=== PATIENT | female | born 1960 | race Caucasian/White ===

== ENCOUNTER → 2020-05-01 09:23 | Outpatient (BNVA) | payer MEDICARE, MEDICAID, SELFPAY | PROVIDERS: Visit Provider Internal Medicine | DX: F11.20 Opioid dependence, uncomplicated (principal) | CPT/HCPCS: 99212 ==

== ENCOUNTER → 2020-05-14 09:34 | Outpatient (BNVA) | payer MEDICARE, MEDICAID, SELFPAY | PROVIDERS: Visit Provider Internal Medicine | DX: F11.99 Opioid use, unspecified with unspecified opioid-induced disorder (principal); B37.0 Candidal stomatitis | CPT/HCPCS: 80305; 99211 ==

== ENCOUNTER → 2020-05-28 09:38 | Outpatient (BNVA) | payer MEDICARE, MEDICAID, SELFPAY | PROVIDERS: PCP Family Medicine; Visit Provider Internal Medicine | DX: F11.99 Opioid use, unspecified with unspecified opioid-induced disorder (principal) | CPT/HCPCS: 80305; 99211 ==

== ENCOUNTER → 2020-06-18 10:49 | Outpatient (BNVA) | payer MEDICARE, MEDICAID, SELFPAY | PROVIDERS: Visit Provider Internal Medicine | DX: Z76.89 Persons encountering health services in other specified circumstances (principal) ==

== ENCOUNTER → 2020-07-05 10:19 | Outpatient (BNVA) | payer MEDICARE, MEDICAID, SELFPAY | PROVIDERS: Visit Provider Internal Medicine | DX: F11.99 Opioid use, unspecified with unspecified opioid-induced disorder (principal) ==

== ENCOUNTER → 2020-07-25 10:30 | Outpatient (BNVA) | payer MEDICARE, MEDICAID, SELFPAY | PROVIDERS: Visit Provider Internal Medicine | DX: Z13.89 Encounter for screening for other disorder (principal) | CPT/HCPCS: Q3014 ==

== ENCOUNTER → 2020-08-15 11:16 | Outpatient (BNVA) | payer MEDICARE, MEDICAID, SELFPAY | PROVIDERS: Visit Provider Nurse Practitioner Psychiatric/Mental Health ==

== ENCOUNTER 2020-08-20 10:08 | Outpatient (RCR) | payer MEDICARE, MEDICAID, SELFPAY | END 2020-09-04 13:31 | disposition home or self-care (01) | LOC: HO.WCC 10:08 | PROVIDERS: Visit Provider Physician Assistant | DX: I87.322 Chronic venous hypertension (idiopathic) with inflammation of left lower extremity (principal); L97.221 Non-pressure chronic ulcer of left calf limited to breakdown of skin; I73.9 Peripheral vascular disease, unspecified; Q82.0 Hereditary lymphedema; I73.00 Raynaud's syndrome without gangrene; F11.20 Opioid dependence, uncomplicated; J44.9 Chronic obstructive pulmonary disease, unspecified; Z86.19 Personal history of other infectious and parasitic diseases; Z99.81 Dependence on supplemental oxygen; Z87.891 Personal history of nicotine dependence | CPT/HCPCS: 97597; 99202 ==

== ENCOUNTER → 2020-09-06 10:32 | Outpatient (BNVA) | payer MEDICARE, MEDICAID, SELFPAY | PROVIDERS: Visit Provider Internal Medicine | DX: F11.20 Opioid dependence, uncomplicated (principal) | CPT/HCPCS: 80305; 99212 ==

== ENCOUNTER → 2020-10-04 09:57 | Outpatient (BNVA) | payer MEDICARE, MEDICAID, SELFPAY | PROVIDERS: Visit Provider Internal Medicine | DX: F11.99 Opioid use, unspecified with unspecified opioid-induced disorder (principal); Z51.81 Encounter for therapeutic drug level monitoring; Z79.899 Other long term (current) drug therapy | CPT/HCPCS: Q3014 ==

== ENCOUNTER 2020-12-16 11:28 | Inpatient (IN) | payer MEDICARE, MEDICAID, SELFPAY ==
--- NOTE | ~2020-12-16 | US_ITS ---
EXAMINATION: US VENOUS ULTRASOUND WITH DOPPLER LOWER EXTREMITY, RIGHT CLINICAL INFORMATION: Swelling and postoperative. COMPARISON: None TECHNIQUE: Ultrasound of the deep veins is performed from the hip to the calf with compression sonography and color and pulse Doppler assessment. Spectral analysis with color-flow imaging is performed. FINDINGS: There is normal venous compression and respiratory variation and augmented flow. The visualized common femoral vein, superficial femoral vein, profunda femoral vein, popliteal vein, and the trifurcation region shows no evidence of deep venous thrombosis. There is no significant popliteal fossa cyst. Patient refused distal thigh compression. Incidentally noted are small lymph nodes in the groin region. The largest one measuring 3.01 x 0.74 x 1.50 cm. There is normal medullary architecture suggestive of benign lymph nodes. If the patient's symptoms persist, followup ultrasound in 5 days 7 days might be of value to exclude proximal propagation from a non-visualized calf vein. US/US venous duplex LE RT IMPRESSION: No DVT demonstrated in the right lower extremity.
--- NOTE | ~2020-12-16 | CT_ITS ---
EXAMINATION: CT ANGIOGRAM OF THE CHEST WITH AND WITHOUT CONTRAST (CT PULMONARY ANGIOGRAM FOR PE) CLINICAL INFORMATION: Reason for Exam Elevated D-dimer, shortness of breath, postoperative. COMPARISON: Previous chest x-ray from earlier the same day TECHNIQUE: Prior to contrast administration, noncontrast localization images were obtained. Subsequently, multidetector volumetric imaging was performed from the thoracic inlet to below the diaphragms following the administration of 75 mL Omnipaque 350 intravenous contrast. No contrast reaction reported Sagittal, coronal, and MIP oblique sagittal reformatted images were obtained on the CT workstation, uploaded to PACS, and reviewed. This CT examination was performed using dose optimization techniques as appropriate, variously including the following: *Automated exposure control *Adjustment of mA and/or kV according to patient size (this includes techniques or standardized protocols for targeted exams where dose is matched to indication/reason for exam; i.e. extremities or head) *Use of iterative reconstruction technique Total exam dose-length product 566 mGy-cm FINDINGS: QUALITY OF STUDY/CONTRAST BOLUS: Satisfactory. PULMONARY ARTERIES: No central or segmental pulmonary emboli. The pulmonary arteries appear enlarged, main pulmonary artery measuring 4 cm. THORACIC AORTA: No aneurysm or dissection. LUNG: There is a bilateral subsegmental atelectasis, greatest at the right. PLEURA: No pleural effusion or pneumothorax. MEDIASTINUM: The heart is slightly enlarged. No pericardial effusion. No hilar or mediastinal lymphadenopathy. No evidence of septal bowing or right heart strain. CHEST WALL/AXILLA: No axillary or internal mammary lymphadenopathy. OSSEOUS STRUCTURES: There are numerous healing bilateral rib fractures. There is healing sternal and manubrial fractures. There are degenerative changes of the spine. UPPER ABDOMEN: The liver may be enlarged. No reflux of contrast into the hepatic veins to suggest elevated right heart pressures. CT/CT angio chest PE protocol IMPRESSION: No evidence of pulmonary embolism. The pulmonary arteries are enlarged. There is no evidence of right heart strain. Bilateral subsegmental atelectasis, greatest at the right lung base. Innumerable healing bilateral rib fractures and healing sternal and manubrial fractures. VTE: negative
--- NOTE | ~2020-12-16 | XR_ITS ---
EXAMINATION: XR KNEE, RIGHT CLINICAL INFORMATION: Question agustín displacement COMPARISON: None TECHNIQUE: Four views of the right knee. FINDINGS: There is a partially visualized lateral compression plate with 7 screws in the distal right knee. Grossly there is no acute hardware complication. There is a partially visualized comminuted fracture of the distal right femur. There is surgical material/cement along the lateral soft tissues of the knee. The proximal tibia and fibula are intact. There is diffuse soft tissue swelling. XR/XR knee RT 3V IMPRESSION: Partially visualized comminuted fracture of the distal right femur with hardware in place. Grossly there is no acute hardware complication. Surgical material/cement along the lateral soft tissues of the knee.
--- NOTE | ~2020-12-16 | XR_ITS ---
EXAMINATION: XR CHEST CLINICAL INFORMATION: Shortness of breath COMPARISON: Previous chest x-ray most recent February 2019 TECHNIQUE: Frontal view of the chest was obtained. FINDINGS: The cardiac and mediastinal contours are stable. There is question of a fullness in the right hilar region. There is atelectasis in the right midlung and at the right lung base. The lungs are otherwise clear. There is no pleural effusion or pneumothorax. There are degenerative changes of the spine. XR/XR chest 1V IMPRESSION: Question fullness in the right hilar region and atelectasis in the right midlung and right lung base.
[2020-12-16 11:34] VITALS: BP 148/65; PULSE 71; RESP 18; TEMP 36.7; BMI 49.9
--- NOTE | 2020-12-16 11:46 | ECG_ITS ---
Test Reason : LEG PAIN Blood Pressure : / mmHG Vent. Rate : 064 BPM Atrial Rate : 064 BPM P-R Int : 136 ms QRS Dur : 090 ms QT Int : 418 ms P-R-T Axes : 049 028 040 degrees QTc Int : 431 ms Normal sinus rhythm Possible Left atrial enlargement Borderline ECG When compared with ECG of 21-MAR-2019 10:13, No significant changes seen Referred By: Morena Mehta Electronically Signed By:STEPHANY STOUT
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
[2020-12-16 12:07] LABS: MANUAL DIFF FLAG NO
[2020-12-16 12:09] LABS: Basophils Percent Auto 0.4 % (0-2); Eosinophils Absolute Auto 0.4 X10*3/uL (0.0-0.4); Eosinophils Percent Auto 4.2 % (0-4); Hematocrit 35.9 % (37-47); Hemoglobin 10.6 g/dl (12.0-16.0); Imm Gran Abs Auto 0.02 X10*3/uL (0.00-0.03); Imm Gran Pct Auto 0.2 % (0.0-0.4); Lymphocytes Absolute Auto 1.2 X10*3/uL (1.2-4.9); Mean Corpuscular HGB Conc 29.5 g/dl (31.0-35.0); Mean Corpuscular Hemoglobin 28.1 pg (27.0-33.0); Mean Corpuscular Volume 95.2 fL (80-98); Mean Platelet Volume 10.4 fL (9.4-12.3); Monocytes Absolute Auto 0.6 X10*3/uL (0.1-1.2); Neutrophils Absolute Auto 6.2 X10*3/uL (2.0-8.3); Neutrophils Percent Auto 74.2 % (45-73); Platelet Count 205 X10*3/uL (160-400); Red Blood Count 3.77 X10*6/uL (4.20-5.50); Red Cell Distribution Width 13.2 % (11.0-16.0); White Blood Count 8.3 X10*3/uL (4.8-10.8)
[2020-12-16 12:14] LABS: INTERNATIONAL NORM RATIO 1.1 (0.9-1.1); Prothrombin Time 13.6 SEC (10.8-13.0)
[2020-12-16 12:18] LABS: D Dimer 437 NG/ML
[2020-12-16] MEDS: 0.9 % Sodium Chloride 1,000 ML 999 ML IVCONT (12:19)
[2020-12-16] MEDS: Buprenorphine/Naloxone 4/1 mg FILM 1 FILM SUBLINGUAL (12:21)
[2020-12-16 12:29] LABS: Partial Thromboplastin Time 51.6 SEC (24.1-38.0)
[2020-12-16 12:49] LABS: Alanine Aminotransferase 12 U/L (0-31); Albumin Level 3.5 g/dL (3.5-5.0); Alkaline Phosphatase 147 U/L (39-117); Aspartate Amino Transferase 12 U/L (5-31); Bilirubin Direct < 0.2 mg/dL (0.0-0.5); Bilirubin Total < 0.2 mg/dL (0.0-1.0); Blood Urea Nitrogen 27 mg/dL (9-16); Calcium 9.5 mg/dL (8.4-10.2); Creatinine Clr Calc Pharmacy 115.3; Estimated Glomerular Filt Rate > 60; Glucose Random 138 mg/dL (60-115); Lipase 22 U/L (8-78); Total Protein 6.2 g/dL (6.5-8.0)
[2020-12-16 12:54] LABS: B Type Natriuretic Peptide 27 pg/mL (<100); Troponin-I High Sensitivity 4.8 ng/L (<3.5-17.0)
[2020-12-16 13:05] LABS: Anion Gap 13 (12-20); Carbon Dioxide 49 mmol/L (22-29); Chloride 87 mmol/L (96-108); Potassium 3.4 mmol/L (3.3-5.1); Sodium 146 mmol/L (135-145)
--- NOTE | 2020-12-16 13:26 | PC.NURSE ---
family reporting depression and significant life stressors. care team at bedside
--- NOTE | 2020-12-16 13:41 | MHC.CARE ---
CARE Team met with Pt to provide support. Pt reported multiple recent life stressors; medical and personal loss.Pt reports a very support family. Pt reports she is on anxiety medications prescribed by her room service waiter. Pt reports she is interested in speaking with a thearpist for additional support. Pt reports a history of family therapy through [facility]. CARE Team spoke with Case Management regarding concerns Pt as with current rehab placement. CARE Team to follow up [facility] regarding referral for therapy.
[2020-12-16 14:00] VITALS: RESP 16; O2SAT 100
--- NOTE | 2020-12-16 14:52 | PC.NURSE ---
purewick placed after discussing with pt that we do not have briefs. pt tolerated well
[2020-12-16] MEDS: iohexoL 350 MG/ML 100 ML INFUS..BTL IV (16:19)
[2020-12-16 16:38] VITALS: O2SAT 99
[2020-12-16 16:51] LABS: ABG Refer to POC result
[2020-12-16 16:52] LABS: ABG Base Excess 33.9 mmol/L; ABG HCO3 65 mmol/L (22-26); ABG pCO2 100 mmHg (32-45); ABG pCO2 TC 98 mmHg (32-45); ABG pH 7.42 (7.35-7.45); ABG pH TC 7.43 (7.35-7.45); ABG pO2 73 mmHg (83-108)
[2020-12-16] MEDS: Acetaminophen 325 MG TABLET 650 MG PO (18:29)
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
--- NOTE | 2020-12-16 19:06 | MHC.CM.ED ---
Pt will be admitted [place] [facility]. CPAP and med adjustments. Pt and partner very happy to be admitted. Hoa Blackburn (RN at [facility] is very unhappy with the care the patient received at [facility] and doesn't want her to return there.If she needs continued STR, would like pt closer to her. CM will continue to follow for d/c needs.
[2020-12-16 19:28] VITALS: BP 119/47; PULSE 75; RESP 22; TEMP 36.7; O2SAT 93
[2020-12-16] MEDS: Furosemide 40 MG/4 ML VIAL IVPUSH (19:33)
--- NOTE | 2020-12-16 19:53 | PC.NURSE ---
Pt aaox4, resting on stretcher in NAD, breathing with ease on NC. pt endorses pain to R knee, denies other complaints/concerns at this time. Pt agreeable to plan for admission. Pt NSR on secured entrance monitor, vss. Pt medicated with IV lasix, has purewick connected to suction. Pt stretcher in low locked position, rails raised, call chavez within reach.
[2020-12-16 20:02] LABS: COVID-19 Test Negative (Negative)
--- NOTE | 2020-12-16 20:42 | PC.NURSE ---
This RN called Respiratory to notify of need for bipap and repeat abg after 2 hourss of bipap. PILI Ramirez and nelson Jimenez to bedside placing doan catheter.
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
[2020-12-16 22:07] LABS: Glucose Urine UA NEG (NEG); Leukocyte Esterase Urine 1+ (NEG); Nitrite Urine NEG (NEG); UACC Culture Trigger YES; Urine Blood TRACE (NEG); Urine Ketones NEG (NEG); Urine Protein NEG (NEG-TRACE)
[2020-12-16 22:11] LABS: Appearance Urine HAZY; Color Urine YELLOW
[2020-12-16 22:17] LABS: Bacteria Urine 1+ /LPF; Hyaline Casts Urine 0-2 /LPF; Mucus Urine 1+ /LPF; RBC Urine 0 /HPF (0); Squamous Epithelial Cell Urine 2+ /LPF; WBC Clumps Urine NOTED
[2020-12-16 23:01] VITALS: BP 131/57; PULSE 65; RESP 12; O2SAT 96
[2020-12-16] MEDS: Ergocalciferol (Vitamin D2) 1,250 MCG CAPSULE 1250 MCG PO (23:06)
[2020-12-16] MEDS: Enoxaparin Sodium 80 MG/0.8 ML SYRINGE 65 MG SUBCUT (23:06)
[2020-12-16] MEDS: methylPREDNISolone Sod Succ 40 MG/ML VIAL IVPUSH (23:07)
--- NOTE | 2020-12-16 23:22 | PC.NURSE ---
pt requesting her dose of klonopin, this rn requested a one time dose as pt missed her 7pm dose. per provider, pt not to receive dose tonight d/t elevated CO2 levels. THis RN to notify pt.
--- NOTE | 2020-12-16 23:34 | PC.NURSE ---
Per provider, ok to give klonopin despite prior instruction to skip today's dose.
[2020-12-16 23:55] VITALS: BP 131/58; PULSE 63; RESP 19; O2SAT 95
[2020-12-16] MEDS: clonazePAM 0.5 MG TABLET PO (23:57)
[2020-12-17] VITALS (9 sets, daily range): BP systolic 126–163; BP diastolic 56–67; PULSE 59–67; RESP 17–20; TEMP 35.9–36.9; O2SAT 90–98; BMI 48.7
[2020-12-17 00:31] LABS: ABG Base Excess 35.2 mmol/L; ABG HCO3 66 mmol/L (22-26); ABG pCO2 99 mmHg (32-45); ABG pCO2 TC 98 mmHg (32-45); ABG pH 7.43 (7.35-7.45); ABG pH TC 7.43 (7.35-7.45); ABG pO2 69 mmHg (83-108)
[2020-12-17 00:31] LABS: ABG Refer to POC result
[2020-12-17] MEDS: methylPREDNISolone Sod Succ 40 MG/ML VIAL IVPUSH (05:42)
[2020-12-17 06:32] LABS: MANUAL DIFF FLAG NO
[2020-12-17 06:42] LABS: INTERNATIONAL NORM RATIO 1.1 (0.9-1.1); Prothrombin Time 12.9 SEC (10.8-13.0)
[2020-12-17 06:50] LABS: Basophils Percent Auto 0.4 % (0-2); Eosinophils Absolute Auto 0.1 X10*3/uL (0.0-0.4); Eosinophils Percent Auto 0.8 % (0-4); Hematocrit 34.6 % (37-47); Hemoglobin 10.5 g/dl (12.0-16.0); Imm Gran Abs Auto 0.01 X10*3/uL (0.00-0.03); Imm Gran Pct Auto 0.1 % (0.0-0.4); Lymphocytes Absolute Auto 0.7 X10*3/uL (1.2-4.9); Lymphocytes Percent Auto 9.4 % (20-40); Mean Corpuscular HGB Conc 30.3 g/dl (31.0-35.0); Mean Corpuscular Hemoglobin 28.5 pg (27.0-33.0); Mean Corpuscular Volume 93.8 fL (80-98); Mean Platelet Volume 11.3 fL (9.4-12.3); Monocytes Absolute Auto 0.1 X10*3/uL (0.1-1.2); Monocytes Percent Auto 1.2 % (2-11); Neutrophils Absolute Auto 6.6 X10*3/uL (2.0-8.3); Neutrophils Percent Auto 88.1 % (45-73); Platelet Count 214 X10*3/uL (160-400); Red Blood Count 3.69 X10*6/uL (4.20-5.50); White Blood Count 7.5 X10*3/uL (4.8-10.8)
[2020-12-17 07:20] LABS: Anion Gap 14 (12-20); Blood Urea Nitrogen 22 mg/dL (9-16); Calcium 9.4 mg/dL (8.4-10.2); Carbon Dioxide 47 mmol/L (22-29); Chloride 87 mmol/L (96-108); Creatinine Clr Calc Pharmacy 119.1; Estimated Glomerular Filt Rate > 60; Glucose Random 194 mg/dL (60-115); Magnesium 1.8 mg/dL (1.6-2.6); Potassium 3.6 mmol/L (3.3-5.1); Sodium 144 mmol/L (135-145)
[2020-12-17] MEDS: Thiamine HCL 100 MG TABLET PO (08:31)
[2020-12-17] MEDS: Furosemide 40 MG TABLET PO (08:31)
[2020-12-17] MEDS: dilTIAZem HCL CD 180 MG CAP.ER.24H PO (08:31)
[2020-12-17] MEDS: Gabapentin 300 MG CAPSULE PO ×3 (08:31→21:44)
[2020-12-17] MEDS: Theophylline Anhydrous ER 400 MG TAB.ER.24H PO (08:31)
[2020-12-17] MEDS: Aspirin Enteric Coated 81 MG TABLET.DR PO (08:31)
[2020-12-17] MEDS: Enoxaparin Sodium 80 MG/0.8 ML SYRINGE 65 MG SUBCUT ×2 (08:32→21:45)
[2020-12-17] MEDS: 0.9 % Sodium Chloride Flush 3 ML SYRINGE IVFLUSH ×3 (08:35→21:45)
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
--- NOTE | 2020-12-17 08:59 | MHC.CM.PN ---
CM met with Patient briefly (Nursing Care being provided) and spoke with S.O of 30 years/HCP/Nurse @ [facility] @ [phone]. Patient was admitted from [facility] at [facility] and she will not be returning there. With permission, CM has made referrals to other area SNFs and have initiated and will follow for dc planning. Fellow CM provided IMM yeterday and this worker again today (not realizing that CM admission had already been completed). Patient uses O[facility] at home ([facility])and her PCP is Dr. Evin Fan. Patient has a script she fills at [facility], from Dr. Houston for her Suboxone and Patient has a wound vac on her (L) LE.
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
[2020-12-17] MEDS: Acetaminophen 325 MG TABLET 650 MG PO (11:54)
[2020-12-17] MEDS: acetaZOLAMIDE 250 MG TABLET PO (13:09)
[2020-12-17] MEDS: clonazePAM 0.5 MG TABLET PO (15:10)
[2020-12-17] MEDS: Buprenorphine/Naloxone 4/1 mg FILM 1 FILM SUBLINGUAL ×2 (15:41→21:44)
[2020-12-17] MEDS: Warfarin Sodium 7.5 MG TABLET PO (17:48)
--- NOTE | 2020-12-17 20:04 | PC.NURSE ---
Pt AOx4 , mostly pleasant, can be anxious at times. Was upset today about med regimen. INSURANCE COMMISSIONER and RN explained med regimen and following her pharmacy med rec. PT was upset about orders but did recieve her daily klonipon which had good effect on anxiety levels. PT was also questioning her suboxone dose, said they had been weaning it lately- has conslt sammie - Promise Sherman INSURANCE COMMISSIONER to see tomorrow. Pt had some pain in R knee- tylenol and ice packs did help per pt reassessment. Pt was requesting her wound vac to be changed stating pain was unbearable to last through the night until wound to see tomorrow. INSURANCE COMMISSIONER came to room removed wound vac. RN replaced with wet to dry dressing. Wound vac machine remained in room at bedside as not from [facility] Wound consult is in place. Pt voided ~2L urine from 7a-7p. States breathing is better as well as her lower extrem edema, is receiving IV lasix at this time. Pt 1-2asst OOB to chair, non wt bearing on right due to recent fracture. Did well with a stand/pivot/shuffle to the recliner from bed. High fall risk measures remain in place at this time. Pt uses call chavez appropriately.
[2020-12-18] VITALS (7 sets, daily range): BP systolic 104–137; BP diastolic 51–90; PULSE 53–65; RESP 18–19; TEMP 36.4–37.1; O2SAT 93–98
[2020-12-18] MEDS: clonazePAM 0.5 MG TABLET PO ×2 (01:19→10:57)
[2020-12-18] MEDS: Omeprazole 20 MG CAPSULE.DR PO (05:40)
[2020-12-18 06:28] LABS: Hematocrit 31.6 % (37-47); Hemoglobin 9.4 g/dl (12.0-16.0); Mean Corpuscular HGB Conc 29.7 g/dl (31.0-35.0); Mean Corpuscular Hemoglobin 27.7 pg (27.0-33.0); Mean Corpuscular Volume 93.2 fL (80-98); Mean Platelet Volume 11.2 fL (9.4-12.3); Platelet Count 200 X10*3/uL (160-400); Red Blood Count 3.39 X10*6/uL (4.20-5.50); Red Cell Distribution Width 13.2 % (11.0-16.0); White Blood Count 7.4 X10*3/uL (4.8-10.8)
[2020-12-18 06:49] LABS: B Type Natriuretic Peptide 83 pg/mL (<100)
[2020-12-18 07:14] LABS: Theophylline 6.1
[2020-12-18 07:16] LABS: Anion Gap 11 (12-20); Blood Urea Nitrogen 22 mg/dL (9-16); Calcium 8.8 mg/dL (8.4-10.2); Carbon Dioxide 47 mmol/L (22-29); Chloride 90 mmol/L (96-108); Creatinine Clr Calc Pharmacy 115.3; Estimated Glomerular Filt Rate > 60; Glucose Random 129 mg/dL (60-115); Potassium 3.1 mmol/L (3.3-5.1); Sodium 145 mmol/L (135-145)
[2020-12-18] MEDS: Furosemide 40 MG/4 ML VIAL IVPUSH (07:49)
[2020-12-18] MEDS: 0.9 % Sodium Chloride Flush 3 ML SYRINGE IVFLUSH ×3 (07:50→20:51)
[2020-12-18] MEDS: acetaZOLAMIDE 250 MG TABLET PO (07:50)
[2020-12-18] MEDS: Thiamine HCL 100 MG TABLET PO (07:51)
[2020-12-18] MEDS: Gabapentin 300 MG CAPSULE PO ×3 (07:52→20:47)
[2020-12-18] MEDS: predniSONE 20 MG TABLET 40 MG PO (07:53)
[2020-12-18] MEDS: dilTIAZem HCL CD 180 MG CAP.ER.24H PO (07:53)
[2020-12-18] MEDS: Theophylline Anhydrous ER 400 MG TAB.ER.24H PO (07:53)
[2020-12-18] MEDS: Buprenorphine/Naloxone 4/1 mg FILM 1 FILM SUBLINGUAL ×3 (07:54→20:47)
[2020-12-18] MEDS: Aspirin Enteric Coated 81 MG TABLET.DR PO (08:07)
[2020-12-18 08:23] LABS: Prothrombin Time 12.4 SEC (10.8-13.0)
[2020-12-18] MEDS: Potassium Chloride ER 20 MEQ TAB.ER.PRT 40 MEQ PO (08:33)
[2020-12-18] MEDS: Enoxaparin Sodium 80 MG/0.8 ML SYRINGE 65 MG SUBCUT ×2 (08:33→20:47)
--- NOTE | 2020-12-18 08:38 | MHC.CM.PN ---
Female 60 DX CHF. Patient had been receiving STR @ [facility]. She is admitted @ [facility] for HF. The Patient requests that she not return to the Facility. Referrals have been sent out to local facilities for STR. CM will follow.
--- NOTE | 2020-12-18 09:22 | P.PNPL_ITS ---
Subjective Subjective Date of Service: 12/18/20 Interval history: The patient was seen on exam. She did tolerate the higher BiPAP 12/03. She did require small dose of benzodiazepines that she usually uses at home. She did receive a dose of Diamox yesterday. Her bicarb still a very elevated. I will give her additional IV Diamox does now in the patient should continue Diamox to her bicarb is below 40. Objective Data Labs CBC & Chem 7: 12/18/20 05:36 12/18/20 05:36 Labs: Laboratory Results - last 24 hr 12/17/20 12/18/20 12/18/20 09:11 05:36 05:36 WBC 7.4 RBC 3.39 L Hgb 9.4 L Hct 31.6 L MCV 93.2 MCH 27.7 MCHC 29.7 L RDW 13.2 Plt Count 200 MPV 11.2 Absolute Nucleated RBC 0.000 Nucleated RBC % (auto) 0.0 PT INR Sodium 145 Potassium 3.1 L Chloride 90 L Carbon Dioxide 47 H* Anion Gap 11 L BUN 22 H Creatinine 0.65 Estim Creat Clear Calc 115.3 Estimated GFR > 60 Random Glucose 129 H Calcium 8.8 D B-Natriuretic Peptide Theophylline 6.1 12/18/20 12/18/20 05:36 07:43 WBC RBC Hgb Hct MCV MCH MCHC RDW Plt Count MPV Absolute Nucleated RBC Nucleated RBC % (auto) PT 12.4 INR 1.0 Sodium Potassium Chloride Carbon Dioxide Anion Gap BUN Creatinine Estim Creat Clear Calc Estimated GFR Random Glucose Calcium B-Natriuretic Peptide 83 Theophylline Microbiology Microbiology Results: Microbiology 12/16/20 21:52 Urine clean catch - Clean Catch Midstream Urine Culture - Final No growth. Review of Systems Review of Systems Yes all other systems are reviewed and are negative Cardiovascular: Reports as per HPI, Reports no additional cardiovascular co mplaints, Denies acrocyanosis, Denies cool extremities, Denies painful fingertips, Denies chest pain, Denies chest pain at rest, Denies diaphoresis, Denies syncope, Denies irregular heart rhythm, Denies claudication, Reports leg edema, Denies lightheadedness, Denies palpitations and Reports dyspnea Respiratory: Reports dyspnea Denies syncope Endocrine: Denies palpitations Physical Exam Vital Signs: Vital Signs: Last Vital Signs Temp 98.0 F 12/18/20 07:31 Pulse 60 12/18/20 07:53 Resp 19 12/18/20 07:31 BP 112/54 L 12/18/20 07:53 Pulse Ox 97 12/18/20 07:31 Oxygen Flow Rate 4 12/16/20 11:34 Body Mass Index 48.7 Const: General: alert Neck: Neck: Yes normal visual inspection, Yes full ROM and Yes no lymphadenopathy Chest: Chest palpation & inspection: normal inspection of the chest Resp: Auscultation: crackles bilateral at the base and diminished lung sounds Cardio: Rate: regular rate Rhythm: regular rhythm Heart sounds: S1 normal heart sound present and S2 normal heart sound present GI: Palpation (GI): Soft to palpation and nontender Auscultation: normal bowel sounds : General: No no CVA tenderness Back/Spine/Pelvis: Back: No no CVA tenderness Skin: General skin exam: rashes and/or lesions noted Extrem: General: No cyanosis and Yes edema Procedures Date of Service Date of Service: 12/18/20 Assessment and Plan Assessment and plan (1) ALEKSEY treated with BiPAP: Status: Acute (2) Hypoventilation associated with obesity: Status: Acute (3) Pickwickian syndrome: Status: Acute (4) Chronic hypercapnic respiratory failure: Status: Acute Assessment and Plan: Continue BiPAP 18/8 Additional Diamox today IV, she stay on Diamox until part copies below 40 Continue diuresis as tolerated Time Spent With Patient Time: Total time spent is greater than 50% in coordination of care (as documented) at patient's floor/unit and/or counseling patient: Time with patient: 15 - 24 minutes
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
[2020-12-18] MEDS: acetaZOLAMIDE sodium 500 MG VIAL 250 MG IVPUSH (10:57)
--- NOTE | 2020-12-18 12:28 | PM.PNCARD ---
Subjective Subjective Date of Service: 12/18/20 Interval history: She states that she is feeling better. No new complaints. Review of Systems Review of Systems Yes all other systems are reviewed and are negative Cardiovascular: Reports as per HPI, Reports no additional cardiovascular complaints, Denies acrocyanosis, Denies cool extremities, Denies painful fingertips, Denies chest pain, Denies chest pain at rest, Denies diaphoresis, Denies syncope, Denies irregular heart rhythm, Denies claudication, Reports leg edema, Denies lightheadedness, Denies palpitations and Reports dyspnea Respiratory: Reports dyspnea Denies syncope Endocrine: Denies palpitations Physical Exam Vital Signs: Last Vital Signs Temp 97.8 F 12/18/20 11:26 Pulse 64 12/18/20 11:26 Resp 18 12/18/20 11:26 BP 132/90 H 12/18/20 11:26 Pulse Ox 94 12/18/20 11:26 Oxygen Flow Rate 4 12/16/20 11:34 Body Mass Index 48.7 Const General: cooperative, comfortable and no acute distress Orientation/consciousness: patient oriented x3 HENMO Other: Unremarkable Neck Neck: Yes normal visual inspection Chest Chest palpation & inspection: normal inspection of the chest Resp Auscultation: no crackles, wheezes (Mild) and diminished lung sounds Cardio Jugular venous distension: no JVD Palpation: normal PMI Heart sounds: S1 normal heart sound present, S2 normal heart sound present, no gallops, no murmurs and no rubs GI Palpation (GI): Soft to palpation Back/Spine/Pelvis Other: unremarkable Skin General skin exam: no rashes or lesions noted Neuro General: patient oriented x3 Extrem General: Yes pedal edema (Bilateral 3+ with chronic changes) Psych Mental Status: mental status grossly normal Results Labs and Meds Result diagrams: 12/18/20 05:36 12/18/20 05:36 Lab results: Laboratory Results - last 24 hr 12/17/20 12/18/20 12/18/20 09:11 05:36 05:36 WBC 7.4 RBC 3.39 L Hgb 9.4 L Hct 31.6 L MCV 93.2 MCH 27.7 MCHC 29.7 L RDW 13.2 Plt Count 200 MPV 11.2 Absolute Nucleated RBC 0.000 Nucleated RBC % (auto) 0.0 PT INR Sodium 145 Potassium 3.1 L Chloride 90 L Carbon Dioxide 47 H* Anion Gap 11 L BUN 22 H Creatinine 0.65 Estim Creat Clear Calc 115.3 Estimated GFR > 60 Random Glucose 129 H Calcium 8.8 D B-Natriuretic Peptide Theophylline 6.1 12/18/20 12/18/20 05:36 07:43 WBC RBC Hgb Hct MCV MCH MCHC RDW Plt Count MPV Absolute Nucleated RBC Nucleated RBC % (auto) PT 12.4 INR 1.0 Sodium Potassium Chloride Carbon Dioxide Anion Gap BUN Creatinine Estim Creat Clear Calc Estimated GFR Random Glucose Calcium B-Natriuretic Peptide 83 Theophylline Progress Note: A&P Assessment and plan (1) Acute on chronic right heart failure: Status: Acute (2) Paroxysmal atrial fibrillation: Status: Acute (3) Nonrheumatic mitral (valve) stenosis: Status: Acute (4) ALEKSEY treated with BiPAP: Status: Acute (5) Hypoventilation associated with obesity: Status: Acute Assessment and Plan: ABG shows significant CO2 retention. Her creatinine is 0.63. High sensitivity troponin 4.8. Cardiac BNP is 27. Overall, symptoms possibly from acute on chronic right heart failure related to obesity and obstructive sleep apnea. With regard to atrial fibrillation, no evidence of the same on telemetry. Echocardiogram was recently done at [facility] which I reviewed. LVEF was 60-65%. There was mild to moderate mitral stenosis due to mitral annular calcification. Otherwise no significant valvular pathology. RVSP could not be assessed. Normal IVC size and respiratory collapse. Overall, empiric diuretics is reasonable. In the last 24 hours, she has diuresed almost 3.8 L and negative -2960 mL. She states she is feeling much improved clinically. Discharge planning. Follow-up with her own car hop, Dr. Salcedo. Fall Risk Details Current Medications: Current Medications Generic Name Dose Route Start Last Admin Trade Name Freq PRN Reason Stop Dose Admin Acetaminophen 650 mg 12/16/20 21:44 12/17/20 11:54 Acetaminophen 325 Mg Tablet PO 650 mg Q6H PRN Administration Pain, Mild (Pain Scale 1-3) Acetazolamide 250 mg 12/17/20 12:00 12/18/20 07:50 Acetazolamide 250 Mg Tablet PO 250 mg DAILY BEN Administration Albuterol/Ipratropium 3 ml 12/17/20 08:00 12/18/20 11:10 Albuterol/Iprat 2.5/0.5mg 3 Ml Ampul.Neb INHALE Not Given RQ4H WHILE AWAKE [facility] Aspirin 81 mg 12/17/20 09:00 12/18/20 08:07 Aspirin Enteric Coated 81 Mg Tablet. PO 81 mg DAILY BEN Administration Buprenorphine/Naloxone 1 film 12/17/20 15:00 12/18/20 07:54 Buprenorphine/Naloxone 4/1 Mg Film SUBLINGUAL 1 film TID BEN Administration Clonazepam 0.5 mg 12/17/20 15:05 12/18/20 10:57 Clonazepam 0.5 Mg Tablet PO 0.5 mg DAILY PRN Administration anxiety Diltiazem HCl 180 mg 12/17/20 09:00 12/18/20 07:53 Diltiazem Hcl Cd 180 Mg Cap.Er.24h PO 180 mg DAILY [facility] Administration Protocol Enoxaparin Sodium 65 mg 12/16/20 22:00 12/18/20 08:33 Enoxaparin Sodium 80 Mg/0.8 Ml Syringe SUBCUT 65 mg Q12H BEN Administration Ergocalciferol 1,250 mcg 12/16/20 21:58 12/16/20 23:06 Ergocalciferol (Vitamin D2) 1,250 Mcg Capsule PO 1,250 mcg MO [facility] Administration Furosemide 40 mg 12/17/20 09:00 12/18/20 07:49 Furosemide 40 Mg/4 Ml Vial IVPUSH 40 mg DAILY [facility] Administration Protocol Gabapentin 300 mg 12/17/20 09:00 12/18/20 07:52 Gabapentin 300 Mg Capsule PO 300 mg TID BEN Administration Omeprazole 20 mg 12/18/20 06:30 12/18/20 05:40 Omeprazole 20 Mg Capsule. PO 20 mg DAILY@0630 [facility] Administration Pharmacy Consult 1 each 12/16/20 18:36 Consult Rx Perform Med Rec MISCELLANE ONCE PRN Consult order Prednisone 40 mg 12/18/20 09:00 12/18/20 07:53 Prednisone 20 Mg Tablet PO 40 mg DAILY [facility] Administration Sodium Chloride 3 ml 12/17/20 00:00 12/18/20 07:50 0.9 % Sodium Chloride Flush 3 Ml Syringe IVFLUSH 3 ml QSHIFT [facility] Administration Theophylline 400 mg 12/17/20 09:00 12/18/20 07:53 Theophylline Anhydrous Er 400 Mg Tab.Er.24h PO 400 mg DAILY [facility] Administration Thiamine HCl 100 mg 12/17/20 09:00 12/18/20 07:51 Thiamine Hcl 100 Mg Tablet PO 100 mg DAILY BEN Administration Warfarin Sodium 7.5 mg 12/17/20 18:00 12/17/20 17:48 Warfarin Sodium 7.5 Mg Tablet PO 7.5 mg DAILY@1800 BEN Administration Time Spent With Patient Time: Total time spent is greater than 50% in coordination of care (as documented) at patient's floor/unit and/or counseling patient: Time with patient: less than 15 minutes Procedures Date of Service Date of Service: 12/18/20
--- NOTE | 2020-12-18 15:51 | HO.ADDICT_ITS ---
History of Present Illness Date of Service: 12/18/2020 Chief Complaint: CHF Reason for Consult: ? reduction in suboxone dose Requesting physician: Meagan Farrar Discussed with referring provider: Yes Sources of Information: patient interviewed and chart reviewed HPI Narrative: Patient is a 60 year old female with multiple chronic medical issues, including OUD. She has been being managed outpatient by Dr. Houston at the [facility]. Consult requested as patient verbalized to provider desire to possibly reduce dose of suboxone. Patient seen in room 479. Awake, alert , pleasant and engaged in interview. Reporting that there was a misunderstanding regarding request for consult. She bruce snot wish to change the dose of her medication. She is concerned regarding an upcoming procedure and how to manage her suboxone prior to that. She denies any issues with current suboxone dosing and feels medication has been extremely helpful to her. Medical Evaluation Reviewed: Yes Review of Systems Constitutional: Reports as per HPI Diagnostics Vital Signs (24Hr): Vital Signs - 24 hr 12/17/20 19:45 12/17/20 23:57 12/18/20 03:38 Temperature 96.7 F L 97.0 F 98.1 F Pulse Rate 67 61 53 Respiratory Rate 18 18 18 Blood Pressure 137/64 126/56 L 114/60 Pulse Oximetry 95 98 98 12/18/20 07:31 12/18/20 07:53 12/18/20 11:26 Temperature 98.0 F 97.8 F Pulse Rate 60 60 64 Respiratory Rate 19 18 Blood Pressure 112/54 L 112/54 L 132/90 H Pulse Oximetry 97 94 12/18/20 15:23 Temperature 98.7 F Pulse Rate 65 Respiratory Rate 18 Blood Pressure 104/51 L Pulse Oximetry 94 Body Mass Index 48.7 Labs Results: 12/18/20 05:36 12/18/20 05:36 Labs: Laboratory Results - last 48 hr 12/16/20 12/16/20 12/16/20 16:43 19:39 21:52 WBC RBC Hgb Hct MCV MCH MCHC RDW Plt Count MPV Immature Gran % (Auto) Neut % (Auto) Lymph % (Auto) [place] % (Auto) Eos % (Auto) Baso % (Auto) Lymph # (Auto) [place] # (Auto) Eos # (Auto) Baso # (Auto) Abs Immat Gran (auto) Absolute Neuts (auto) Absolute Nucleated RBC Nucleated RBC % (auto) PT INR O2 Saturation 92.0 ABG pH at Pt Temp 7.42 ABG pH (Temp Correct) 7.43 ABG pCO2 at Pt Temp 100 H* ABG pCO2 (Temp Corrct 98 H* ABG pO2 at Pt Temp 73 L ABG HCO3 65 H ABG Base Excess (Actual) 33.9 Sodium Potassium Chloride Carbon Dioxide Anion Gap BUN Creatinine Estim Creat Clear Calc Estimated GFR Random Glucose Calcium Magnesium B-Natriuretic Peptide Urine Color YELLOW Urine Appearance HAZY Urine pH 6.0 Ur Specific [place] 1.010 Urine Protein NEG Urine Glucose (UA) NEG Urine Ketones NEG Urine Blood TRACE Urine Nitrite NEG Ur Leukocyte Esterase 1+ H Urine RBC 0 Urine WBC 76-150 H Urine WBC Clumps NOTED Ur Squamous Epith Cells 2+ Urine Bacteria 1+ Hyaline Casts 0-2 Urine Mucus 1+ Theophylline COVID-19 ([facility]) Negative COVID-19 Clin Com See Note 12/17/20 12/17/20 12/17/20 00:19 05:39 05:39 WBC 7.5 RBC 3.69 L Hgb 10.5 L Hct 34.6 L MCV 93.8 MCH 28.5 MCHC 30.3 L RDW 13.0 Plt Count 214 MPV 11.3 Immature Gran % (Auto) 0.1 Neut % (Auto) 88.1 H Lymph % (Auto) 9.4 L [place] % (Auto) 1.2 L Eos % (Auto) 0.8 Baso % (Auto) 0.4 Lymph # (Auto) 0.7 L [place] # (Auto) 0.1 Eos # (Auto) 0.1 Baso # (Auto) 0.0 Abs Immat Gran (auto) 0.01 Absolute Neuts (auto) 6.6 Absolute Nucleated RBC 0.000 Nucleated RBC % (auto) 0.0 PT 12.9 INR 1.1 O2 Saturation 91.0 ABG pH at Pt Temp 7.43 ABG pH (Temp Correct) 7.43 ABG pCO2 at Pt Temp 99 H* ABG pCO2 (Temp Corrct 98 H* ABG pO2 at Pt Temp 69 L ABG HCO3 66 H ABG Base Excess (Actual) 35.2 Sodium Potassium Chloride Carbon Dioxide Anion Gap BUN Creatinine Estim Creat Clear Calc Estimated GFR Random Glucose Calcium Magnesium B-Natriuretic Peptide Urine Color Urine Appearance Urine pH Ur Specific [place] Urine Protein Urine Glucose (UA) Urine Ketones Urine Blood Urine Nitrite Ur Leukocyte Esterase Urine RBC Urine WBC Urine WBC Clumps Ur Squamous Epith Cells Urine Bacteria Hyaline Casts Urine Mucus Theophylline COVID-19 ([facility]) COVID-19 [employer] 12/17/20 12/17/20 12/18/20 05:39 09:11 05:36 WBC 7.4 RBC 3.39 L Hgb 9.4 L Hct 31.6 L MCV 93.2 MCH 27.7 MCHC 29.7 L RDW 13.2 Plt Count 200 MPV 11.2 Immature Gran % (Auto) Neut % (Auto) Lymph % (Auto) [place] % (Auto) Eos % (Auto) Baso % (Auto) Lymph # (Auto) [place] # (Auto) Eos # (Auto) Baso # (Auto) Abs Immat Gran (auto) Absolute Neuts (auto) Absolute Nucleated RBC 0.000 Nucleated RBC % (auto) 0.0 PT INR O2 Saturation ABG pH at Pt Temp ABG pH (Temp Correct) ABG pCO2 at Pt Temp ABG pCO2 (Temp Corrct ABG pO2 at Pt Temp ABG HCO3 ABG Base Excess (Actual) Sodium 144 Potassium 3.6 Chloride 87 L Carbon Dioxide 47 H* Anion Gap 14 BUN 22 H Creatinine 0.63 Estim Creat Clear Calc 119.1 Estimated GFR > 60 Random Glucose 194 H D Calcium 9.4 Magnesium 1.8 B-Natriuretic Peptide Urine Color Urine Appearance Urine pH Ur Specific [place] Urine Protein Urine Glucose (UA) Urine Ketones Urine Blood Urine Nitrite Ur Leukocyte Esterase Urine RBC Urine WBC Urine WBC Clumps Ur Squamous Epith Cells Urine Bacteria Hyaline Casts Urine Mucus Theophylline 6.1 COVID-19 ([facility]) COVID-19 [employer] 12/18/20 12/18/20 12/18/20 05:36 05:36 07:43 WBC RBC Hgb Hct MCV MCH MCHC RDW Plt Count MPV Immature Gran % (Auto) Neut % (Auto) Lymph % (Auto) [place] % (Auto) Eos % (Auto) Baso % (Auto) Lymph # (Auto) [place] # (Auto) Eos # (Auto) Baso # (Auto) Abs Immat Gran (auto) Absolute Neuts (auto) Absolute Nucleated RBC Nucleated RBC % (auto) PT 12.4 INR 1.0 O2 Saturation ABG pH at Pt Temp ABG pH (Temp Correct) ABG pCO2 at Pt Temp ABG pCO2 (Temp Corrct ABG pO2 at Pt Temp ABG HCO3 ABG Base Excess (Actual) Sodium 145 Potassium 3.1 L Chloride 90 L Carbon Dioxide 47 H* Anion Gap 11 L BUN 22 H Creatinine 0.65 Estim Creat Clear Calc 115.3 Estimated GFR > 60 Random Glucose 129 H Calcium 8.8 D Magnesium B-Natriuretic Peptide 83 Urine Color Urine Appearance Urine pH Ur Specific [place] Urine Protein Urine Glucose (UA) Urine Ketones Urine Blood Urine Nitrite Ur Leukocyte Esterase Urine RBC Urine WBC Urine WBC Clumps Ur Squamous Epith Cells Urine Bacteria Hyaline Casts Urine Mucus Theophylline COVID-19 ([facility]) COVID-19 Clin Com Imaging Radiology Impressions: ITS Impressions Chest X-Ray 12/16/20 11:45 IMPRESSION: Question fullness in the right hilar region and atelectasis in the right midlung and right lung base. Venous Duplex 12/16/20 11:45 IMPRESSION: No DVT demonstrated in the right lower extremity. Chest CTA 12/16/20 12:36 IMPRESSION: No evidence of pulmonary embolism. The pulmonary arteries are enlarged. There is no evidence of right heart strain. Bilateral subsegmental atelectasis, greatest at the right lung base. Innumerable healing bilateral rib fractures and healing sternal and manubrial fractures. VTE: negative Mental Status Exam Mental Status Exam Patient Appearance: Well Grooomed and Appropriate Patient Orientation: Person, Place, Time and Situation Level of Consciousness: Awake, Appropriate and Alert Patient Behavior: Appropriate Mood Description: Appropriate Affect Description: Appropriate Patient Cognition Impaired: No Ability to Follow Directions: Excellent Speech Pattern: Clear Thought Content: positive for Intact and positive for Linear Judgement: Good Medications Medications Current Medications Generic Name Dose Route Start Last Admin Trade Name Freq PRN Reason Stop Dose Admin Acetaminophen 650 mg 12/16/20 21:44 12/17/20 11:54 Acetaminophen 325 Mg Tablet PO 650 mg Q6H PRN Administration Pain, Mild (Pain Scale 1-3) Acetazolamide 250 mg 12/17/20 12:00 12/18/20 07:50 Acetazolamide 250 Mg Tablet PO 250 mg DAILY BEN Administration Albuterol/Ipratropium 3 ml 12/17/20 08:00 12/18/20 15:09 Albuterol/Iprat 2.5/0.5mg 3 Ml Ampul.Neb INHALE Not Given RQ4H WHILE AWAKE [facility] Aspirin 81 mg 12/17/20 09:00 12/18/20 08:07 Aspirin Enteric Coated 81 Mg Tablet. PO 81 mg DAILY BEN Administration Buprenorphine/Naloxone 1 film 12/17/20 15:00 12/18/20 14:01 Buprenorphine/Naloxone 4/1 Mg Film SUBLINGUAL 1 film TID BEN Administration Clonazepam 0.5 mg 12/17/20 15:05 12/18/20 10:57 Clonazepam 0.5 Mg Tablet PO 0.5 mg DAILY PRN Administration anxiety Diltiazem HCl 180 mg 12/17/20 09:00 12/18/20 07:53 Diltiazem Hcl Cd 180 Mg Cap.Er.24h PO 180 mg DAILY BEN Administration Protocol Enoxaparin Sodium 65 mg 12/16/20 22:00 12/18/20 08:33 Enoxaparin Sodium 80 Mg/0.8 Ml Syringe SUBCUT 65 mg Q12H BEN Administration Ergocalciferol 1,250 mcg 12/16/20 21:58 12/16/20 23:06 Ergocalciferol (Vitamin D2) 1,250 Mcg Capsule PO 1,250 mcg MO BEN Administration Furosemide 40 mg 12/17/20 09:00 12/18/20 07:49 Furosemide 40 Mg/4 Ml Vial IVPUSH 40 mg DAILY BEN Administration Protocol Gabapentin 300 mg 12/17/20 09:00 12/18/20 14:01 Gabapentin 300 Mg Capsule PO 300 mg TID BEN Administration Omeprazole 20 mg 12/18/20 06:30 12/18/20 05:40 Omeprazole 20 Mg Capsule. PO 20 mg DAILY@0630 [facility] Administration Pharmacy Consult 1 each 12/16/20 18:36 Consult Rx Perform Med Rec MISCELLANE ONCE PRN Consult order Prednisone 40 mg 12/18/20 09:00 12/18/20 07:53 Prednisone 20 Mg Tablet PO 40 mg DAILY BEN Administration Sodium Chloride 3 ml 12/17/20 00:00 12/18/20 14:01 0.9 % Sodium Chloride Flush 3 Ml Syringe IVFLUSH 3 ml QSHIFT [facility] Administration Theophylline 400 mg 12/17/20 09:00 12/18/20 07:53 Theophylline Anhydrous Er 400 Mg Tab.Er.24h PO 400 mg DAILY BEN Administration Thiamine HCl 100 mg 12/17/20 09:00 12/18/20 07:51 Thiamine Hcl 100 Mg Tablet PO 100 mg DAILY BEN Administration Warfarin Sodium 7.5 mg 12/17/20 18:00 12/17/20 17:48 Warfarin Sodium 7.5 Mg Tablet PO 7.5 mg DAILY@1800 BEN Administration Allergies Allergies Allergy/AdvReac Type Severity Reaction Status Date / Time morphine [MORPHINE] Allergy Unknown ANAPHALAXIS, Verified 12/16/20 19:36 anaphylaxis Assessment & Plan Assessment & Plan (1) Opioid use disorder: Status: Acute Code(s): F11.99 - Opioid use, unspecified with unspecified opioid-induced disorder Recommendations: no change to current dose encouraged patient to call [facility] and discuss upcoming surgery with Dr. Houston and her nurse in order to make a plan Greater than 50% of the session was spent on counseling and/or coordination of care PMFSH Past Medical History Medical History (Updated 12/17/20 @ 11:36 by Brandan Rivera MD) Dyspnea Hypoventilation associated with obesity Opioid use disorder ALEKSEY treated with BiPAP Paroxysmal atrial fibrillation Pickwickian syndrome Social History Social History Household Members: Other Housing: [facility] Do you presently have visiting nurse or other home services: No Alcohol intake: never Advance Directives Date on File: 12/16/20 service: No Current occupational status: disabled
[2020-12-18] MEDS: Warfarin Sodium 7.5 MG TABLET PO (17:13)
[2020-12-19] VITALS (7 sets, daily range): BP systolic 127–153; BP diastolic 51–70; PULSE 55–95; RESP 16–22; TEMP 36.1–36.8; O2SAT 93–99; BMI 47.9
[2020-12-19 06:42] LABS: INTERNATIONAL NORM RATIO 1.1 (0.9-1.1); Prothrombin Time 12.9 SEC (10.8-13.0)
[2020-12-19 06:49] LABS: Hematocrit 33.2 % (37-47); Hemoglobin 9.9 g/dl (12.0-16.0); Mean Corpuscular HGB Conc 29.8 g/dl (31.0-35.0); Mean Corpuscular Hemoglobin 28.2 pg (27.0-33.0); Mean Corpuscular Volume 94.6 fL (80-98); Mean Platelet Volume 11.1 fL (9.4-12.3); Platelet Count 200 X10*3/uL (160-400); Red Blood Count 3.51 X10*6/uL (4.20-5.50); Red Cell Distribution Width 13.2 % (11.0-16.0); White Blood Count 8.3 X10*3/uL (4.8-10.8)
[2020-12-19 07:37] LABS: Anion Gap 10 (12-20); Blood Urea Nitrogen 24 mg/dL (9-16); Calcium 8.7 mg/dL (8.4-10.2); Carbon Dioxide 41 mmol/L (22-29); Chloride 95 mmol/L (96-108); Creatinine Clr Calc Pharmacy 107.6; Estimated Glomerular Filt Rate > 60; Glucose Fasting 181 mg/dL (60-99); Potassium 3.4 mmol/L (3.3-5.1); Sodium 143 mmol/L (135-145)
[2020-12-19] MEDS: Gabapentin 300 MG CAPSULE PO ×3 (08:20→20:16)
[2020-12-19] MEDS: Thiamine HCL 100 MG TABLET PO (08:20)
[2020-12-19] MEDS: Omeprazole 20 MG CAPSULE.DR PO (08:20)
[2020-12-19] MEDS: Aspirin Enteric Coated 81 MG TABLET.DR PO (08:20)
[2020-12-19] MEDS: predniSONE 20 MG TABLET 40 MG PO (08:20)
[2020-12-19] MEDS: Theophylline Anhydrous ER 400 MG TAB.ER.24H PO (08:20)
[2020-12-19] MEDS: 0.9 % Sodium Chloride Flush 3 ML SYRINGE IVFLUSH ×3 (08:21→20:20)
[2020-12-19] MEDS: acetaZOLAMIDE 250 MG TABLET PO (08:21)
[2020-12-19] MEDS: clonazePAM 0.5 MG TABLET PO (08:21)
[2020-12-19] MEDS: dilTIAZem HCL CD 180 MG CAP.ER.24H PO (08:21)
[2020-12-19] MEDS: Furosemide 40 MG/4 ML VIAL IVPUSH (08:29)
--- NOTE | 2020-12-19 09:05 | PM.PNPUL ---
Subjective Subjective Date of Service: 12/19/20 Interval history: The patient was seen on exam. She is tolerating the BiPAP well. Although, she did not sleep well last night only about 3 hours. Her bicarb is down to 41 which is reassuring. She is diuresing well. Objective Data Labs CBC & Chem 7: 12/19/20 05:33 12/19/20 05:33 Labs: Laboratory Results - last 24 hr 12/19/20 12/19/20 12/19/20 05:33 05:33 05:33 WBC 8.3 RBC 3.51 L Hgb 9.9 L Hct 33.2 L MCV 94.6 MCH 28.2 MCHC 29.8 L RDW 13.2 Plt Count 200 MPV 11.1 Absolute Nucleated RBC 0.000 Nucleated RBC % (auto) 0.0 PT 12.9 INR 1.1 Sodium 143 Potassium 3.4 Chloride 95 L Carbon Dioxide 41 H* Anion Gap 10 L BUN 24 H Creatinine 0.69 Estim Creat Clear Calc 107.6 Estimated GFR > 60 Fasting Glucose 181 H Calcium 8.7 Microbiology Microbiology Results: Microbiology 12/16/20 21:52 Urine clean catch - Clean Catch Midstream Urine Culture - Final No growth. Review of Systems Review of Systems Yes all other systems are reviewed and are negative Cardiovascular: Reports as per HPI, Reports no additional cardiovascular complaints, Denies acrocyanosis, Denies cool extremities, Denies painful fingertips, Denies chest pain, Denies chest pain at rest, Denies diaphoresis, Denies syncope, Denies irregular heart rhythm, Denies claudication, Reports leg edema, Denies lightheadedness, Denies palpitations and Reports dyspnea Respiratory: Reports dyspnea Denies syncope Endocrine: Denies palpitations Physical Exam Vital Signs: Vital Signs: Last Vital Signs Temp 97.8 F 12/19/20 08:00 Pulse 65 12/19/20 08:21 Resp 22 H 12/19/20 08:00 BP 146/64 H 12/19/20 08:21 Pulse Ox 95 12/19/20 08:00 Oxygen Flow Rate 4 12/16/20 11:34 Body Mass Index 47.9 Const: General: alert Neck: Neck: Yes normal visual inspection, Yes full ROM and Yes no lymphadenopathy Chest: Chest palpation & inspection: normal inspection of the chest Resp: Auscultation: diminished lung sounds Cardio: Rate: regular rate Rhythm: regular rhythm Heart sounds: S1 normal heart sound present and S2 normal heart sound present GI: Palpation (GI): Soft to palpation and nontender Auscultation: normal bowel sounds Skin: General skin exam: rashes and/or lesions noted Procedures Date of Service Date of Service: 12/19/20 Assessment and Plan Assessment and plan (1) Dyspnea: Status: Acute (2) ALEKSEY treated with BiPAP: Status: Acute (3) Hypoventilation associated with obesity: Status: Acute (4) Pickwickian syndrome: Status: Acute (5) Edema: Status: Acute (6) Chronic hypercapnic respiratory failure: Status: Acute Assessment and Plan: Continue Diamox, but should not continue upon discharge Continue BIPAP 18/8 oxygen supplementation to keep pox 89-96% Diuresis as tolerated Should 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
[2020-12-19] MEDS: Buprenorphine/Naloxone 4/1 mg FILM 1 FILM SUBLINGUAL ×3 (10:10→23:14)
[2020-12-19] MEDS: Enoxaparin Sodium 80 MG/0.8 ML SYRINGE 65 MG SUBCUT ×2 (10:11→20:15)
--- NOTE | 2020-12-19 10:16 | P.PNCA_ITS ---
Subjective Subjective Date of Service: 12/19/20 Interval history: No new complaints; feels better. Review of Systems Review of Systems Yes all other systems are reviewed and are negative Cardiovascular: Reports as per HPI, Reports no additional cardiovascular complaints, Denies acrocyanosis, Denies cool extremities, Denies painful fingertips, Denies chest pain, Denies chest pain at rest, Denies diaphoresis, Denies syncope, Denies irregular heart rhythm, Denies claudication, Reports leg edema, Denies lightheadedness, Denies palpitations and Reports dyspnea Respiratory: Reports dyspnea Denies syncope Endocrine: Denies palpitations Physical Exam Vital Signs: Last Vital Signs Temp 97.8 F 12/19/20 08:00 Pulse 65 12/19/20 08:21 Resp 22 H 12/19/20 08:00 BP 146/64 H 12/19/20 08:21 Pulse Ox 95 12/19/20 08:00 Oxygen Flow Rate 4 12/16/20 11:34 Body Mass Index 47.9 Const General: cooperative, comfortable and no acute distress Orientation/consciousness: patient oriented x3 HENOK Other: Unremarkable Neck Neck: Yes normal visual inspection Chest Chest palpation & inspection: normal inspection of the chest Resp Auscultation: no crackles, wheezes (Mild) and diminished lung sounds Cardio Jugular venous distension: no JVD Palpation: normal PMI Heart sounds: S1 normal heart sound present, S2 normal heart sound present, no gallops, no murmurs and no rubs GI Palpation (GI): Soft to palpation Back/Spine/Pelvis Other: unremarkable Skin General skin exam: no rashes or lesions noted Neuro General: patient oriented x3 Extrem General: Yes pedal edema (Bilateral 2+ with chronic changes) Psych Mental Status: mental status grossly normal Results Labs and Meds Result diagrams: 12/19/20 05:33 12/19/20 05:33 Lab results: Laboratory Results - last 24 hr 12/19/20 12/19/20 12/19/20 05:33 05:33 05:33 WBC 8.3 RBC 3.51 L Hgb 9.9 L Hct 33.2 L MCV 94.6 MCH 28.2 MCHC 29.8 L RDW 13.2 Plt Count 200 MPV 11.1 Absolute Nucleated RBC 0.000 Nucleated RBC % (auto) 0.0 PT 12.9 INR 1.1 Sodium 143 Potassium 3.4 Chloride 95 L Carbon Dioxide 41 H* Anion Gap 10 L BUN 24 H Creatinine 0.69 Estim Creat Clear Calc 107.6 Estimated GFR > 60 Fasting Glucose 181 H Calcium 8.7 Progress Note: A&P Assessment and plan (1) Acute on chronic right heart failure: Status: Acute (2) Paroxysmal atrial fibrillation: Status: Acute (3) Nonrheumatic mitral (valve) stenosis: Status: Acute (4) ALEKSEY treated with BiPAP: Status: Acute (5) Hypoventilation associated with obesity: Status: Acute Assessment and Plan: ABG shows significant CO2 retention. High sensitivity troponin 4.8. Cardiac BNP is 27. Overall, symptoms possibly from acute on chronic right heart failure related to obesity and obstructive sleep apnea. With regard to atrial fibrillation, no evidence of the same on telemetry. Echocardiogram was recently done at [facility] which I reviewed. LVEF was 60-65%. There was mild to moderate mitral stenosis due to mitral annular calcification. Otherwise no significant valvular pathology. RVSP could not be assessed. Normal IVC size and respiratory collapse. Overall, empiric diuretics is reasonable. She is negative -3215mL. She states she is feeling much improved clinically. Discharge planning. Follow-up with her own general administrator, Dr. Salcedo. Fall Risk Details Current Medications: Current Medications Generic Name Dose Route Start Last Admin Trade Name Freq PRN Reason Stop Dose Admin Acetaminophen 650 mg 12/16/20 21:44 12/17/20 11:54 Acetaminophen 325 Mg Tablet PO 650 mg Q6H PRN Administration Pain, Mild (Pain Scale 1-3) Acetazolamide 250 mg 12/17/20 12:00 12/19/20 08:21 Acetazolamide 250 Mg Tablet PO 250 mg DAILY BEN Administration Albuterol/Ipratropium 3 ml 12/17/20 08:00 12/19/20 07:23 Albuterol/Iprat 2.5/0.5mg 3 Ml Ampul.Neb INHALE Not Given RQ4H WHILE AWAKE BEN Aspirin 81 mg 12/17/20 09:00 12/19/20 08:20 Aspirin Enteric Coated 81 Mg Tablet. PO 81 mg DAILY BEN Administration Buprenorphine/Naloxone 1 film 12/17/20 15:00 12/19/20 10:10 Buprenorphine/Naloxone 4/1 Mg Film SUBLINGUAL 1 film TID BEN Administration Clonazepam 0.5 mg 12/17/20 15:05 12/19/20 08:21 Clonazepam 0.5 Mg Tablet PO 0.5 mg DAILY PRN Administration anxiety Diltiazem HCl 180 mg 12/17/20 09:00 12/19/20 08:21 Diltiazem Hcl Cd 180 Mg Cap.Er.24h PO 180 mg DAILY BEN Administration Protocol Enoxaparin Sodium 65 mg 12/16/20 22:00 12/19/20 10:11 Enoxaparin Sodium 80 Mg/0.8 Ml Syringe SUBCUT 65 mg Q12H BEN Administration Ergocalciferol 1,250 mcg 12/16/20 21:58 12/16/20 23:06 Ergocalciferol (Vitamin D2) 1,250 Mcg Capsule PO 1,250 mcg MO BEN Administration Furosemide 40 mg 12/17/20 09:00 12/19/20 08:29 Furosemide 40 Mg/4 Ml Vial IVPUSH 40 mg DAILY BEN Administration Protocol Gabapentin 300 mg 12/17/20 09:00 12/19/20 08:20 Gabapentin 300 Mg Capsule PO 300 mg TID BEN Administration Omeprazole 20 mg 12/18/20 06:30 12/19/20 08:20 Omeprazole 20 Mg Capsule. PO 20 mg DAILY@0630 [facility] Administration Pharmacy Consult 1 each 12/16/20 18:36 Consult Rx Perform Med Rec MISCELLANE ONCE PRN Consult order Prednisone 40 mg 12/18/20 09:00 12/19/20 08:20 Prednisone 20 Mg Tablet PO 40 mg DAILY BEN Administration Sodium Chloride 3 ml 12/17/20 00:00 12/19/20 08:21 0.9 % Sodium Chloride Flush 3 Ml Syringe IVFLUSH 3 ml QSHIFT BEN Administration Theophylline 400 mg 12/17/20 09:00 12/19/20 08:20 Theophylline Anhydrous Er 400 Mg Tab.Er.24h PO 400 mg DAILY BEN Administration Thiamine HCl 100 mg 12/17/20 09:00 12/19/20 08:20 Thiamine Hcl 100 Mg Tablet PO 100 mg DAILY BEN Administration Warfarin Sodium 7.5 mg 12/17/20 18:00 12/18/20 17:13 Warfarin Sodium 7.5 Mg Tablet PO 7.5 mg DAILY@1800 BEN Administration Time Spent With Patient Time: Total time spent is greater than 50% in coordination of care (as docu mented) at patient's floor/unit and/or counseling patient: Time with patient: less than 15 minutes Procedures Date of Service Date of Service: 12/19/20
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
[2020-12-19] MEDS: Potassium Chloride ER 20 MEQ TAB.ER.PRT 40 MEQ PO (11:31)
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
[2020-12-19] MEDS: Warfarin Sodium 7.5 MG TABLET PO (18:02)
--- NOTE | 2020-12-19 18:44 | PC.NURSE ---
Order for wound vac, waiting for wound vac to be brought up to floor. Oxycodone for prior to wound vac application. Pt offers no complaints, able to make needs known. Washed up, up to bedside commode x2 for BM, doan draining yellow urine. pt able to make needs known
[2020-12-19] MEDS: Ketorolac Tromethamine 15 MG/ML VIAL IVPUSH (20:15)
[2020-12-20] VITALS (7 sets, daily range): BP systolic 122–157; BP diastolic 57–67; PULSE 52–70; RESP 18–19; TEMP 35.9–37.2; O2SAT 93–98
[2020-12-20] MEDS: Omeprazole 20 MG CAPSULE.DR PO (06:04)
[2020-12-20 06:25] LABS: INTERNATIONAL NORM RATIO 1.1 (0.9-1.1); Prothrombin Time 12.8 SEC (10.8-13.0)
[2020-12-20 06:56] LABS: Anion Gap 13 (12-20); Blood Urea Nitrogen 27 mg/dL (9-16); Calcium 9.1 mg/dL (8.4-10.2); Carbon Dioxide 37 mmol/L (22-29); Chloride 97 mmol/L (96-108); Creatinine Clr Calc Pharmacy 93.9; Estimated Glomerular Filt Rate > 60; Glucose Fasting 182 mg/dL (60-99); Magnesium 2.1 mg/dL (1.6-2.6); Potassium 3.7 mmol/L (3.3-5.1); Sodium 143 mmol/L (135-145)
[2020-12-20] MEDS: Furosemide 40 MG TABLET PO (08:12)
[2020-12-20] MEDS: predniSONE 20 MG TABLET 40 MG PO (08:12)
[2020-12-20] MEDS: Aspirin Enteric Coated 81 MG TABLET.DR PO (08:12)
[2020-12-20] MEDS: Thiamine HCL 100 MG TABLET PO (08:12)
[2020-12-20] MEDS: Theophylline Anhydrous ER 400 MG TAB.ER.24H PO (08:12)
[2020-12-20] MEDS: acetaZOLAMIDE 250 MG TABLET PO (08:13)
[2020-12-20] MEDS: Gabapentin 300 MG CAPSULE PO ×3 (08:14→20:47)
[2020-12-20] MEDS: 0.9 % Sodium Chloride Flush 3 ML SYRINGE IVFLUSH ×3 (08:14→20:52)
[2020-12-20] MEDS: Buprenorphine/Naloxone 4/1 mg FILM 1 FILM SUBLINGUAL ×3 (08:14→20:47)
[2020-12-20] MEDS: clonazePAM 0.5 MG TABLET PO (08:21)
[2020-12-20] MEDS: Enoxaparin Sodium 80 MG/0.8 ML SYRINGE 65 MG SUBCUT ×2 (10:21→20:51)
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
--- NOTE | 2020-12-20 11:58 | MHC.CM.PN ---
pt is a bed hold at [facility] sn[facility], she also has a bed offer at [facility]. however, she does not want to return or go to any snf. she wants to go home. she is already on home o2 supplied by [facility]. she has her and a nephew that can help her c her needs. she will need transport home via ambulance - stretcher. a request for an Rx for a walker and bed side commode has been relayed to hospitalist. pt says she will cox pay for a recliner and wheel chair in the home, which she is calling to order now. she said she will order a hospital bed later, after returning home, as it is not as important. she will also have vna for nsg and home PT which a ref. has been made for . pt is requesting to dc home tomorrow, sat - 12/21 , once her recliner and wheel chair are in place. is aware of this dc plan. cm to cont. to follow.
--- NOTE | 2020-12-20 12:18 | P.PNPL_ITS ---
Subjective Subjective Date of Service: 12/20/20 Interval history: Seen and examined. Doing better. Tolerating BIPAP 18/8. bicarb 37 meq Objective Data Labs CBC & Chem 7: 12/19/20 05:33 12/20/20 05:07 Labs: Laboratory Results - last 24 hr 12/20/20 12/20/20 05:07 05:07 PT 12.8 INR 1.1 Sodium 143 Potassium 3.7 Chloride 97 Carbon Dioxide 37 H Anion Gap 13 BUN 27 H Creatinine 0.79 Estim Creat Clear Calc 93.9 Estimated GFR > 60 Fasting Glucose 182 H Calcium 9.1 Magnesium 2.1 Microbiology Microbiology Results: Microbiology 12/16/20 21:52 Urine clean catch - Clean Catch Midstream Urine Culture - Final No growth. Review of Systems Review of Systems Yes all other systems are reviewed and are negative Cardiovascular: Reports as per HPI, Reports no additional cardiovascular complaints, Denies acrocyanosis, Denies cool extremities, Denies painful fingertips, Denies chest pain, Denies chest pain at rest, Denies diaphoresis, Denies syncope, Denies irregular heart rhythm, Denies claudication, Reports leg edema, Denies lightheadedness, Denies palpitations and Reports dyspnea Respiratory: Reports dyspnea Denies syncope Endocrine: Denies palpitations Physical Exam Vital Signs: Vital Signs: Last Vital Signs Temp 98.1 F 12/20/20 12:00 Pulse 66 12/20/20 12:00 Resp 18 12/20/20 12:00 BP 122/58 L 12/20/20 12:00 Pulse Ox 93 12/20/20 12:00 Oxygen Flow Rate 4 12/16/20 11:34 Body Mass Index 47.9 Const: General: alert Neck: Neck: Yes normal visual inspection, Yes full ROM and Yes no lymphadenopathy Chest: Chest palpation & inspection: normal inspection of the chest Resp: Auscultation: diminished lung sounds Cardio: Rate: regular rate Rhythm: regular rhythm Heart sounds: S1 normal heart sound present and S2 normal heart sound present GI: Palpation (GI): Soft to palpation and nontender Auscultation: normal bowel sounds Skin: General skin exam: rashes and/or lesions noted Procedures Date of Service Date of Service: 12/20/20 Assessment and Plan Assessment and plan (1) Chronic hypercapnic respiratory failure: Status: Acute (2) Pickwickian syndrome: Status: Acute (3) Hypoventilation associated with obesity: Status: Acute (4) ALEKSEY treated with BiPAP: Status: Acute (5) Dyspnea: Status: Acute Assessment and Plan: Stop Diamox Diuresis as tolerated Needs to continue BIPAP 18/8 F/U with outpt Pulmnary in 1-2 weeks Time Spent With Patient Time: Total time spent is greater than 50% in coordination of care (as d ocumented) at patient's floor/unit and/or counseling patient: Time with patient: 15 - 24 minutes
[2020-12-20] MEDS: HYDROmorphone HCl 2 MG/ML VIAL IVPUSH (17:24)
[2020-12-20] MEDS: Warfarin Sodium 10 MG TABLET PO (18:07)
[2020-12-21] VITALS: BP 137/63; PULSE 65; RESP 18; TEMP 36.9; O2SAT 98
[2020-12-21] MEDS: Acetaminophen 325 MG TABLET 650 MG PO (00:42)
[2020-12-21] MEDS: clonazePAM 0.5 MG TABLET PO ×2 (01:06→15:13)
[2020-12-21 03:51] VITALS: BP 157/67; PULSE 59; RESP 20; TEMP 36.8; O2SAT 92
[2020-12-21] MEDS: Omeprazole 20 MG CAPSULE.DR PO (06:10)
[2020-12-21 07:07] LABS: INTERNATIONAL NORM RATIO 1.1 (0.9-1.1); Prothrombin Time 12.5 SEC (10.8-13.0)
[2020-12-21 07:41] VITALS: BP 134/64; PULSE 68; RESP 18; TEMP 36.2; O2SAT 98
[2020-12-21] MEDS: Buprenorphine/Naloxone 4/1 mg FILM 1 FILM SUBLINGUAL ×2 (09:01→15:13)
[2020-12-21] MEDS: 0.9 % Sodium Chloride Flush 3 ML SYRINGE IVFLUSH ×2 (09:02→15:15)
[2020-12-21] MEDS: Furosemide 40 MG TABLET PO (09:02)
[2020-12-21] MEDS: Theophylline Anhydrous ER 400 MG TAB.ER.24H PO (09:02)
[2020-12-21] MEDS: predniSONE 20 MG TABLET 40 MG PO (09:02)
[2020-12-21] MEDS: Aspirin Enteric Coated 81 MG TABLET.DR PO (09:02)
[2020-12-21] MEDS: Gabapentin 300 MG CAPSULE PO ×2 (09:02→15:13)
[2020-12-21] MEDS: Thiamine HCL 100 MG TABLET PO (09:04)
[2020-12-21 10:47] VITALS: PULSE 65
[2020-12-21] MEDS: dilTIAZem HCL CD 180 MG CAP.ER.24H PO (10:47)
[2020-12-21] MEDS: Enoxaparin Sodium 80 MG/0.8 ML SYRINGE 65 MG SUBCUT (10:48)
[2020-12-21 11:36] VITALS: BP 149/66; PULSE 63; RESP 19; TEMP 36.2; O2SAT 95
--- NOTE | 2020-12-21 11:37 | PM.DS ---
DS: Providers Provider Date of Service: 12/21/20 Date of admission: 12/16/20 21:44 Primary care physician: Evin Fan MD Consults: 12/16/20 12:35 Consult to Care Team Stat Comment: Reason for consultation: depressed 12/16/20 21:43 Consult to Cardiology Routine Consulting Provider: Zach Calle Reason for consultation: chf Consult to Pulmonology Routine Consulting Provider: Evonne Leslie Reason for consultation: COPD; CO2 retension; ?[facility] 12/17/20 01:51 Consult Respiratory Therapy Routine Reason for consultation: cpap Has provider been notified: Yes 12/17/20 11:47 Addiction Medicine Routine Consulting Provider: Saranya Sherman Reason for consultation: on suboxone, may want to change dose Has provider been notified: No 12/17/20 17:19 Consult to Wound Care Routine Consulting Provider: Nataliya Dash Reason for consultation: wound vac left leg, right leg wound Has provider been notified: No DS: Diagnosis Discharge Diagnosis (1) Pickwickian syndrome: Status: Acute (2) Hypoventilation associated with obesity: Status: Acute (3) ALEKSEY treated with BiPAP: Status: Acute (4) Dyspnea: Status: Acute (5) Acute on chronic right heart failure: Status: Acute (6) Wound of left lower extremity: Status: Acute (7) Acute on chronic respiratory failure with hypoxia and hypercapnia: Status: Acute DS: Medications Discharge Medications Home Medications: Home Medications Medication Instructions Recorded Confirmed clonazepam 0.5 mg tablet 0.5 mg PO DAILY@1900 05/01/20 12/16/20 umeclidinium 62.5 mcg-vilanterol 1 inh INHALATION DAILY 05/01/20 12/16/20 25 mcg/actuation powdr for inhalation modafinil 100 mg tablet 100 mg PO BID 07/30/20 10/04/20 theophylline 400 mg 400 mg PO DAILY 07/30/20 12/16/20 tablet,extended release 24 hr ammonium lactate 1 appl TOPICAL BID 12/16/20 12/16/20 aspirin 81 mg PO DAILY 12/16/20 12/16/20 buprenorphine-naloxone [Suboxone] 0.5 film SUBLINGUAL TID 12/16/20 12/16/20 diltiazem HCl 180 mg PO DAILY 12/16/20 12/16/20 enoxaparin 65 mg SUBCUT Q12H 12/16/20 12/16/20 ergocalciferol (vitamin D2) 50,000 unit PO MO 12/16/20 12/16/20 gabapentin 300 mg PO TID 12/16/20 12/16/20 lidocaine 1 patch TOPICAL DAILY 12/16/20 12/16/20 pantoprazole 40 mg PO DAILY 12/16/20 12/16/20 thiamine HCl (vitamin B1) 100 mg PO DAILY 12/16/20 12/16/20 Previous Rx's Medication Instructions Recorded commode [bedside commode] #1 ea 12/20/20 walker #1 ea 12/20/20 furosemide 40 mg PO DAILY #0 tab 12/21/20 warfarin [Jantoven] 10 mg PO DAILY@1800 #0 tab 12/21/20 DS: Summary Hospital Course Hospital Course: Patient was admitted for acute on chronic hypoxic and hypercapnic respiratory failure secondary to acute on chronic diastolic CHF and Pickwickian syndrome. She was briefly on BiPAP in the ER and then significantly improved. She received diuresis with Lasix and Diamox. She was seen by Pulmonary who adjusted her settings to 18/8, her bicarb improved from 49-37 at time of discharge, her diamox was then discontinue. She has been Bridged with Lovenox onto Coumadin for recent diagnosis of atrial fibrillation, her INR was still 1.1 cervical Coumadin has been increased from 5 mg daily to 10 mg daily this should be monitored closely. Patient's shortness of breath significantly improved and she feels close to baseline. She will be discharged home. Time Spent with Patient Time attestation: Total time spent providing and/or coordinating discharge services: Discharge coordination time: Greater than 30 minutes Quality: Stroke Does the patient have a stroke diagnosis?: No Physical Exam Vital Signs: Vital Signs: Last Vital Signs Temp 97.1 F 12/21/20 07:41 Pulse 65 12/21/20 10:47 Resp 18 12/21/20 07:41 BP 134/64 12/21/20 07:41 Pulse Ox 98 12/21/20 07:41 Oxygen Flow Rate 4 12/16/20 11:34 Body Mass Index 47.9 General: AO X 3, no acute distress Resp: diminished CVS: S1,S2,RRR GI: soft, non tender, non distended Neuro: motor grossly intact Psych: appropriate affect DS: Data Data Completed and Pending Labs on day of discharge: Laboratory Results - last 24 hr 12/21/20 06:00 PT 12.5 INR 1.1 Discharge Plan Discharge Patient Disposition: Home Health Service Discharge Diagnosis: Acute on chronic hypercapnic respiratory failure Referrals: [facility] [Outside] - 1 Week Evin Fan MD [Primary Care Provider] - 1 Week Discharge Medications: New (DME) bedside commode Kit See Rx Instructions .ROUTE .MEDSUPPLY Qty: 1 RF: 0 (DME) walker Misc See Rx Instructions .ROUTE .MEDSUPPLY Qty: 1 RF: 0 warfarin [Jantoven] 10 mg Tablet 10 mg PO DAILY@1800 Qty: 0 RF: 0 furosemide 40 mg Tablet 40 mg PO DAILY Qty: 0 RF: 0 Continued diltiazem HCl 180 mg Capsule,Extended Release 24hr 180 mg PO DAILY RF: 0 thiamine HCl (vitamin B1) 100 mg Tablet 100 mg PO DAILY RF: 0 aspirin 81 mg Tablet,Delayed Release (Dr/Ec) 81 mg PO DAILY RF: 0 pantoprazole 40 mg Tablet,Delayed Release (Dr/Ec) 40 mg PO DAILY RF: 0 lidocaine 5 % Adhesive Patch,Medicated 1 patch TOPICAL DAILY RF: 0 gabapentin 300 mg Capsule 300 mg PO TID RF: 0 ergocalciferol (vitamin D2) 25,000 unit Capsule 50,000 unit PO MO RF: 0 enoxaparin 80 mg/0.8 mL Syringe 65 mg SUBCUT Q12H RF: 0 buprenorphine-naloxone [Suboxone] 8-2 mg film 0.5 film sublingual TID RF: 0 ammonium lactate 12 % Lotion 1 appl TOPICAL BID RF: 0 modafinil 100 mg tablet 100 mg PO BID RF: 0 theophylline 400 mg tablet extended release 24 hr 400 mg PO DAILY RF: 0 Anoro Ellipta 62.5-25 mcg/actuation blister with device 1 inh inhalation DAILY RF: 0 clonazepam 0.5 mg tablet 0.5 mg PO DAILY@1900 RF: 0 Discontinued warfarin 5 mg Tablet 5 mg PO DAILY RF: 0 furosemide 40 mg tablet 40 mg PO BID@0800,1400 RF: 0 Discharge Orders: Discharge Order (Routine); Ordered 12/21/20 Ordered By: Can Clark Diet: advance to usual diet Activity on Discharge: As tolerated Stand Alone Forms: Patient Portal Discharge page Care Plan Goals: recovery Health Concerns: chf, co2 retention Plan of Treatment: follow up with surgery/wound care, coumadin dose increased, monitor INR Assessment: see above Discharge Date/Time: 12/21/20 18:15
--- NOTE | 2020-12-21 12:30 | MHC.CM.PN ---
Addendum entered by Katie Devries 12/21/20 16:02: CM MET WITH PT AGAIN AND CONFIRMED HER DME WILL BE DELIVERED BY 1730 HOURS TODAY. PT SCHEDULED TO DC TODAY AT 1800 HOURS [facility]IA [facility] Original Note: CM met with pt to discuss DC plan. Pt reports she plans to DC home with [facility]. Her family is going to medicinal plant picker the DME she will need today and should have it to the home later this afternoon. Pt reports she would like to wait for the DME to be at the home before DC, she expects this will be around 1800 hours. Pt will require BLS transport home. CM will schedule transportation for 1800 hours and alert the pts nurse that this will need to be cancelled if pts family is unable to deliver the DME to her home. Pt will DC home with [facility] today at 1800 hours via [facility].
[2020-12-21 14:58] VITALS: BP 166/69; PULSE 72; RESP 18; TEMP 36.8; O2SAT 91
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
== END 2020-12-21 18:15 | disposition home health service (06) | DRG 291 ==
LOC: HO.ED 18:38 → HO.EDOVER 22:02 → HO.IMC 12-17 00:26
PROVIDERS: Emergency Medicine; Hospitalist; Nurse Practitioner Acute Care; Admitting Provider Hospitalist; Emergency Provider Emergency Medicine; PCP Family Medicine; Visit Provider Internal Medicine
DX: I11.0 Hypertensive heart disease with heart failure (principal); J96.22 Acute and chronic respiratory failure with hypercapnia; J96.21 Acute and chronic respiratory failure with hypoxia; E66.2 Morbid (severe) obesity with alveolar hypoventilation; Z68.42 Body mass index [BMI] 45.0-49.9, adult; F11.20 Opioid dependence, uncomplicated; J44.1 Chronic obstructive pulmonary disease with (acute) exacerbation; T81.30XA Disruption of wound, unspecified, initial encounter; I50.33 Acute on chronic diastolic (congestive) heart failure; F41.9 Anxiety disorder, unspecified; Z99.81 Dependence on supplemental oxygen; I48.0 Paroxysmal atrial fibrillation; F32.9 Major depressive disorder, single episode, unspecified; G89.29 Other chronic pain; I05.0 Rheumatic mitral stenosis; Z20.822 Contact with and (suspected) exposure to COVID-19; Z88.5 Allergy status to narcotic agent; Z79.82 Long term (current) use of aspirin; Z79.01 Long term (current) use of anticoagulants; Z79.899 Other long term (current) drug therapy
CPT/HCPCS: 36415; 36600; 71045; 71275; 73562; 80048; 80076; 80198; 81001; 81003; 83690; 83735; 83880; 84484; 85025; 85027; 85379; 85610; 85730; 87086; 87635; 93005; 93971; 96361; 96374; 99285; J1170; J1650; J1885; J1940; J2920; Q9967

== ENCOUNTER 2020-12-24 12:20 | Emergency (ER) | payer MEDICARE, MEDICAID, SELFPAY ==
--- NOTE | ~2020-12-24 | XR_ITS ---
EXAMINATION: XR CHEST CLINICAL INFORMATION: Evaluate pulmonary edema. COMPARISON: CTA chest 12/16/2020 TECHNIQUE: Frontal view of the chest was obtained. FINDINGS: There is mild cardiomegaly with increased bilateral vascular/interstitial markings suspicious for mild congestion. The lungs are hypoexpanded without confluent infiltrate. Pleural effusion seen. There are bilateral rib fractures. XR/XR chest 1V IMPRESSION: Mild cardiomegaly with increased pulmonary vascularity likely mild congestion or interstitial pneumonitis
--- NOTE | ~2020-12-24 | US_ITS ---
EXAMINATION: US VENOUS ULTRASOUND WITH DOPPLER LOWER EXTREMITY, BILATERAL CLINICAL INFORMATION: Bilateral lower extremity pain, edema and swelling COMPARISON: Right lower extremity DVT study 12/16/2020 and bilateral DVT study 03/21/2019 TECHNIQUE: Ultrasound of the deep veins is performed from the hip to the calf with compression sonography and color and pulse Doppler assessment. Spectral analysis with color-flow imaging is performed. FINDINGS: RIGHT: There is normal venous compression and respiratory variation and augmented flow. The visualized common femoral vein, superficial femoral vein, profunda femoral vein, popliteal vein, and the trifurcation region shows no evidence of deep venous thrombosis. The peroneal vein was not well seen. There is no significant popliteal fossa cyst. LEFT: There is normal venous compression and respiratory variation and augmented flow. The visualized common femoral vein, superficial femoral vein, profunda femoral vein, popliteal vein, and the trifurcation region shows no evidence of deep venous thrombosis. The left calf veins are not well seen. There is a large medial cyst in the left calf measuring 7.8 x 5.3 x 6.4 cm. This was not noted into 2019. If the patient's symptoms persist, followup ultrasound in 5 days 7 days might be of value to exclude proximal propagation from a non-visualized calf vein. US/US venous duplex LE BI IMPRESSION: No DVT demonstrated in either lower extremity. Limited visualization of calf veins as described above. Large new left proximal calf medial cyst.
[2020-12-24 12:43] VITALS: BP 173/53; PULSE 71; RESP 16; TEMP 36.4; O2SAT 98; BMI 49.6
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
--- NOTE | 2020-12-24 14:32 | ECG_ITS ---
Test Reason : weakness Blood Pressure : / mmHG Vent. Rate : 071 BPM Atrial Rate : 071 BPM P-R Int : 152 ms QRS Dur : 086 ms QT Int : 386 ms P-R-T Axes : 048 026 043 degrees QTc Int : 419 ms Normal sinus rhythm Normal ECG When compared with ECG of 16-DEC-2020 12:06, No significant change was found Referred By: Fatuma Wiley Electronically Signed By:Zcah Calle
[2020-12-24] MEDS: oxyCODONE HCl Immed Release 15 MG TABLET PO (15:01)
[2020-12-24 16:09] LABS: MANUAL DIFF FLAG NO
[2020-12-24 16:11] LABS: Basophils Percent Auto 0.3 % (0-2); Eosinophils Absolute Auto 0.5 X10*3/uL (0.0-0.4); Eosinophils Percent Auto 3.7 % (0-4); Hematocrit 34.8 % (37-47); Hemoglobin 10.6 g/dl (12.0-16.0); Imm Gran Abs Auto 0.05 X10*3/uL (0.00-0.03); Imm Gran Pct Auto 0.4 % (0.0-0.4); Lymphocytes Absolute Auto 1.3 X10*3/uL (1.2-4.9); Lymphocytes Percent Auto 9.8 % (20-40); Mean Corpuscular HGB Conc 30.5 g/dl (31.0-35.0); Mean Corpuscular Hemoglobin 28.6 pg (27.0-33.0); Mean Corpuscular Volume 94.1 fL (80-98); Mean Platelet Volume 10.6 fL (9.4-12.3); Monocytes Absolute Auto 0.9 X10*3/uL (0.1-1.2); Monocytes Percent Auto 6.6 % (2-11); Neutrophils Absolute Auto 10.4 X10*3/uL (2.0-8.3); Neutrophils Percent Auto 79.2 % (45-73); Platelet Count 236 X10*3/uL (160-400); Red Cell Distribution Width 13.2 % (11.0-16.0); White Blood Count 13.2 X10*3/uL (4.8-10.8)
--- NOTE | 2020-12-24 16:14 | PC.NURSE ---
us at bedside
--- NOTE | 2020-12-24 16:15 | PC.NURSE ---
Pt alert, oriented x3, skin pink, warm, dry. VSS, LSCTA. Pt currently on 3.5L N/C satting 95-96. Reports L leg pain 10/10, PO pain meds given as documented. IiV established in R AC, labs obtained, results pending. Old wet to dry dsg removed from L lower leg. Moderate sero-sanguineous drainage, no odor. Wound beefy red with moderate amount of slough. Wound redressed with wet to dry packing. Pt resting quietly.
[2020-12-24 16:17] LABS: INTERNATIONAL NORM RATIO 1.4 (0.9-1.1); Prothrombin Time 16.6 SEC (10.8-13.0)
[2020-12-24 16:20] LABS: Partial Thromboplastin Time 47.9 SEC (24.1-38.0)
[2020-12-24 16:36] VITALS: BP 148/85; PULSE 74; RESP 20; TEMP 37.2; O2SAT 98
[2020-12-24 16:38] LABS: Alanine Aminotransferase 15 U/L (0-31); Albumin Level 3.6 g/dL (3.5-5.0); Alkaline Phosphatase 130 U/L (39-117); Anion Gap 12 (12-20); Aspartate Amino Transferase 11 U/L (5-31); Bilirubin Direct < 0.2 mg/dL (0.0-0.5); Bilirubin Total 0.2 mg/dL (0.0-1.0); Blood Urea Nitrogen 19 mg/dL (9-16); Carbon Dioxide 41 mmol/L (22-29); Chloride 94 mmol/L (96-108); Creatinine Clr Calc Pharmacy 117.8; Estimated Glomerular Filt Rate > 60; Glucose Random 161 mg/dL (60-115); Magnesium 1.8 mg/dL (1.6-2.6); Potassium 4.1 mmol/L (3.3-5.1); Sodium 143 mmol/L (135-145); Total Protein 6.2 g/dL (6.5-8.0)
[2020-12-24 16:41] LABS: B Type Natriuretic Peptide 23 pg/mL (<100)
[2020-12-24] MEDS: Furosemide 40 MG/4 ML VIAL IVPUSH (16:49)
[2020-12-24] MEDS: HYDROmorphone HCl 1 MG/ML SYRINGE IVPUSH (16:49)
[2020-12-24 16:56] LABS: COVID-19 Test Negative (Negative); IDNOW Serial# 9DD0AD1C
[2020-12-24 20:02] VITALS: BP 145/64; PULSE 81; RESP 16; TEMP 37.3; O2SAT 96
[2020-12-24 20:46] VITALS: BP 121/61; PULSE 72; RESP 13; O2SAT 96
--- NOTE | 2020-12-24 21:01 | PC.NURSE ---
PT REQUESTED PAIN MEDICATION FOR LEG PAIN. SPOKE WITH MD WHO WANTS PT TO CONTINUE WITH DAILY SUBOXONE FOR PAIN CONTROL. INFORMED PT OF THE PLAN, PT DOES NOT WANT SUBOXONE BECAUSE OF THE SIDE EFFECTS, JERKING MOVEMENTS IN ARMS.
[2020-12-24 21:26] LABS: Hematocrit 34.1 % (37-47); Hemoglobin 10.4 g/dl (12.0-16.0); Mean Corpuscular HGB Conc 30.5 g/dl (31.0-35.0); Mean Corpuscular Hemoglobin 28.4 pg (27.0-33.0); Mean Corpuscular Volume 93.2 fL (80-98); Platelet Count 227 X10*3/uL (160-400); Red Blood Count 3.66 X10*6/uL (4.20-5.50); Red Cell Distribution Width 13.2 % (11.0-16.0); White Blood Count 14.9 X10*3/uL (4.8-10.8)
[2020-12-24 21:33] LABS: INTERNATIONAL NORM RATIO 1.5 (0.9-1.1); Prothrombin Time 18.4 SEC (10.8-13.0)
[2020-12-24 21:35] LABS: Partial Thromboplastin Time 46.3 SEC (24.1-38.0)
[2020-12-24] MEDS: oxyCODONE HCl Immed Release 5 MG TABLET 10 MG PO (22:18)
[2020-12-24 22:19] VITALS: BP 128/29; PULSE 83
[2020-12-24] MEDS: dilTIAZem HCL CD 180 MG CAP.ER.24H PO (22:19)
[2020-12-24] MEDS: Aspirin Enteric Coated 81 MG TABLET.DR PO (22:22)
[2020-12-24] MEDS: Furosemide 40 MG TABLET PO (22:22)
[2020-12-24] MEDS: Thiamine HCL 100 MG TABLET PO (22:23)
[2020-12-24] MEDS: Gabapentin 300 MG CAPSULE PO (22:23)
[2020-12-24 22:25] VITALS: BP 128/29; PULSE 70; RESP 16; O2SAT 95
[2020-12-24] MEDS: Enoxaparin Sodium 80 MG/0.8 ML SYRINGE 65 MG SUBCUT (22:39)
[2020-12-24] MEDS: Theophylline Anhydrous ER 400 MG TAB.ER.24H PO (22:39)
[2020-12-24] MEDS: clonazePAM 0.5 MG TABLET PO (22:39)
--- NOTE | 2020-12-24 22:45 | ED.GENADULT ---
HPI - General Adult General Chief complaint: General Medical Stated complaint: rt leg pain Time Seen by Provider: 12/24/20 13:35 Source: patient and old records reviewed Mode of arrival: ambulatory Limitations: no limitations Related Data Home Medications Medication Instructions Recorded Confirmed clonazepam 0.5 mg tablet 0.5 mg PO DAILY 05/01/20 01/21/21 ammonium lactate 12 % lotion 1 appl TOPICAL BID 12/16/20 01/21/21 ergocalciferol (vitamin D2) 25,000 50,000 unit PO MO 12/16/20 01/21/21 unit capsule thiamine HCl (vitamin B1) 100 mg 100 mg PO DAILY 12/16/20 01/21/21 tablet acetaminophen 325 mg tablet 650 mg PO Q6H PRN 01/21/21 01/21/21 nystatin 100,000 unit/gram topical 1 appl TOPICAL BID 01/21/21 01/21/21 cream Previous Rx's Medication Instructions Recorded commode (bedside commode) #1 ea 12/20/20 walker #1 ea 12/20/20 furosemide 40 mg tablet 40 mg PO DAILY #0 tab 12/21/20 aspirin 81 mg tablet,delayed 81 mg PO DAILY #30 tab 12/22/20 release diltiazem HCl 180 mg 180 mg PO DAILY #30 cap 12/22/20 capsule,extended release 24 hr gabapentin 300 mg capsule 300 mg PO TID #90 cap 12/22/20 modafinil 100 mg tablet 100 mg PO BID #60 tab 12/22/20 pantoprazole 40 mg tablet,delayed 40 mg PO DAILY #30 tab 12/22/20 release theophylline 400 mg 400 mg PO DAILY #30 tab 12/22/20 tablet,extended release 24 hr umeclidinium 62.5 mcg-vilanterol 1 inh INHALATION DAILY #60 ea 12/22/20 25 mcg/actuation powdr for inhalation (Anoro Ellipta) warfarin 5 mg tablet 10 mg PO DAILY #60 tab 12/22/20 cefuroxime axetil 500 mg tablet 500 mg PO BID #14 tab 01/24/21 doxycycline monohydrate 100 mg 100 mg PO BID #14 cap 01/24/21 capsule oxycodone 5 mg tablet 20 mg PO Q4H PRN 7 Days tab 01/24/21 Allergies Allergy/AdvReac Type Severity Reaction Status Date / Time morphine [MORPHINE] Allergy Unknown ANAPHALAXIS, Verified 01/22/21 10:51 anaphylaxis [facility] Past Medical History Medical History (Updated 02/01/21 @ 00:01 by Background Daemon) Acute on chronic respiratory failure with hypoxia and hypercapnia Acute on chronic right heart failure Adopted Chronic hypercapnic respiratory failure Closed tibia fracture Dyspnea Femur fracture, right Hypoventilation associated with obesity Immobility Morbid obesity due to excess calories Nonrheumatic mitral (valve) stenosis Opioid use disorder ALEKSEY treated with BiPAP Paroxysmal atrial fibrillation Pickwickian syndrome Wound of left lower extremity Surgical History (Updated 02/01/21 @ 00:01 by Background Daemon) Recent surgical procedure on lower extremity Status post open reduction and internal fixation (ORIF) of fracture Social History Social History (Updated 01/22/21 @ 10:51 by Jo-Ann Mcdaniel MD) Household Members: Spouse Housing: House Do you presently have visiting nurse or other home services: No Alcohol intake: former Year quit: 1989 Patient Tobacco Use Status: Former Tobacco user Quit Date: 2018 Years Smoked: 25 Second Hand Smoke Exposure: No Advance Directives Date on File: 12/16/20 service: Yes Current occupational status: disabled Physical Exam Vital Signs: Vital Signs: Last Vital Signs Temp 99.4 F 12/26/20 11:00 Pulse 78 12/26/20 11:00 Resp 16 12/26/20 11:00 BP 116/44 L 12/26/20 11:00 Pulse Ox 94 12/26/20 11:00 Body Mass Index 49.6 Medical Decision Making Lab Data Result diagrams: 12/24/20 21:19 12/24/20 16:00 Labs: Lab Results 12/24/20 12/24/20 12/24/20 Range/Units 16:00 16:00 16:00 WBC 13.2 H (4.8-10.8) X10*3/uL RBC 3.70 L (4.20-5.50) X10*6/uL Hgb 10.6 L (12.0-16.0) g/dl Hct 34.8 L (37-47) % MCV 94.1 (80-98) fL MCH 28.6 (27.0-33.0) pg MCHC 30.5 L (31.0-35.0) g/dl RDW 13.2 (11.0-16.0) % Plt Count 236 (160-400) X10*3/uL MPV 10.6 (9.4-12.3) fL Immature Gran % (Auto) 0.4 (0.0-0.4) % Neut % (Auto) 79.2 H (45-73) % Lymph % (Auto) 9.8 L (20-40) % Gu[place]upe % (Auto) 6.6 (2-11) % Eos % (Auto) 3.7 (0-4) % Baso % (Auto) 0.3 (0-2) % Lymph # (Auto) 1.3 (1.2-4.9) X10*3/uL [place] # (Auto) 0.9 (0.1-1.2) X10*3/uL Eos # (Auto) 0.5 H (0.0-0.4) X10*3/uL Baso # (Auto) 0.0 (0.0-0.2) X10*3/uL Abs Immat Gran (auto) 0.05 H (0.00-0.03) X10*3/uL Absolute Neuts (auto) 10.4 H (2.0-8.3) X10*3/uL Absolute Nucleated RBC 0.000 (0.0-0.012) X10*3/uL Nucleated RBC % (auto) 0.0 (0.0-0.2) /100WBC PT 16.6 H D (10.8-13.0) SEC INR 1.4 H (0.9-1.1) APTT 47.9 H (24.1-38.0) SEC Sodium 143 (135-145) mmol/L Potassium 4.1 (3.3-5.1) mmol/L Chloride 94 L (96-108) mmol/L Carbon Dioxide 41 H* (22-29) mmol/L Anion Gap 12 (12-20) BUN 19 H (9-16) mg/dL Creatinine 0.62 (0.5-1.4) mg/dL Estim Creat Clear Calc 117.8 Estimated GFR > 60 Random Glucose 161 H (60-115) mg/dL Calcium 9.0 (8.4-10.2) mg/dL Magnesium 1.8 (1.6-2.6) mg/dL Total Bilirubin 0.2 (0.0-1.0) mg/dL Direct Bilirubin < 0.2 (0.0-0.5) mg/dL AST 11 (5-31) U/L ALT 15 (0-31) U/L Alkaline Phosphatase 130 H (39-117) U/L B-Natriuretic Peptide (<100) pg/mL Total Protein 6.2 L (6.5-8.0) g/dL Albumin 3.6 (3.5-5.0) g/dL COVID-19 ([facility]) (Negative) COVID-19 Clin Com 12/24/20 12/24/20 12/24/20 Range/Units 16:00 16:00 21:19 WBC 14.9 H (4.8-10.8) X10*3/uL RBC 3.66 L (4.20-5.50) X10*6/uL Hgb 10.4 L (12.0-16.0) g/dl Hct 34.1 L (37-47) % MCV 93.2 (80-98) fL MCH 28.4 (27.0-33.0) pg MCHC 30.5 L (31.0-35.0) g/dl RDW 13.2 (11.0-16.0) % Plt Count 227 (160-400) X10*3/uL MPV 10.0 (9.4-12.3) fL Immature Gran % (Auto) (0.0-0.4) % Neut % (Auto) (45-73) % Lymph % (Auto) (20-40) % [place] % (Auto) (2-11) % Eos % (Auto) (0-4) % Baso % (Auto) (0-2) % Lymph # (Auto) (1.2-4.9) X10*3/uL [place] # (Auto) (0.1-1.2) X10*3/uL Eos # (Auto) (0.0-0.4) X10*3/uL Baso # (Auto) (0.0-0.2) X10*3/uL Abs Immat Gran (auto) (0.00-0.03) X10*3/uL Absolute Neuts (auto) (2.0-8.3) X10*3/uL Absolute Nucleated RBC 0.000 (0.0-0.012) X10*3/uL Nucleated RBC % (auto) 0.0 (0.0-0.2) /100WBC PT (10.8-13.0) SEC INR (0.9-1.1) APTT (24.1-38.0) SEC Sodium (135-145) mmol/L Potassium (3.3-5.1) mmol/L Chloride (96-108) mmol/L Carbon Dioxide (22-29) mmol/L Anion Gap (12-20) BUN (9-16) mg/dL Creatinine (0.5-1.4) mg/dL Estim Creat Clear Calc Estimated GFR Random Glucose (60-115) mg/dL Calcium (8.4-10.2) mg/dL Magnesium (1.6-2.6) mg/dL Total Bilirubin (0.0-1.0) mg/dL Direct Bilirubin (0.0-0.5) mg/dL AST (5-31) U/L ALT (0-31) U/L Alkaline Phosphatase (39-117) U/L B-Natriuretic Peptide 23 (<100) pg/mL Total Protein (6.5-8.0) g/dL Albumin (3.5-5.0) g/dL COVID-19 ([facility]) Negative (Negative) COVID-19 Clin Com See Note 12/24/20 12/25/20 12/25/20 Range/Units 21:19 07:14 20:04 WBC (4.8-10.8) X10*3/uL RBC (4.20-5.50) X10*6/uL Hgb (12.0-16.0) g/dl Hct (37-47) % MCV (80-98) fL MCH (27.0-33.0) pg MCHC (31.0-35.0) g/dl RDW (11.0-16.0) % Plt Count (160-400) X10*3/uL MPV (9.4-12.3) fL Immature Gran % (Auto) (0.0-0.4) % Neut % (Auto) (45-73) % Lymph % (Auto) (20-40) % [place] % (Auto) (2-11) % Eos % (Auto) (0-4) % Baso % (Auto) (0-2) % Lymph # (Auto) (1.2-4.9) X10*3/uL [place] # (Auto) (0.1-1.2) X10*3/uL Eos # (Auto) (0.0-0.4) X10*3/uL Baso # (Auto) (0.0-0.2) X10*3/uL Abs Immat Gran (auto) (0.00-0.03) X10*3/uL Absolute Neuts (auto) (2.0-8.3) X10*3/uL Absolute Nucleated RBC (0.0-0.012) X10*3/uL Nucleated RBC % (auto) (0.0-0.2) /100WBC PT 18.4 H 20.6 H 22.5 H (10.8-13.0) SEC INR 1.5 H 1.7 H 1.9 H (0.9-1.1) APTT 46.3 H (24.1-38.0) SEC Sodium (135-145) mmol/L Potassium (3.3-5.1) mmol/L Chloride (96-108) mmol/L Carbon Dioxide (22-29) mmol/L Anion Gap (12-20) BUN (9-16) mg/dL Creatinine (0.5-1.4) mg/dL Estim Creat Clear Calc Estimated GFR Random Glucose (60-115) mg/dL Calcium (8.4-10.2) mg/dL Magnesium (1.6-2.6) mg/dL Total Bilirubin (0.0-1.0) mg/dL Direct Bilirubin (0.0-0.5) mg/dL AST (5-31) U/L ALT (0-31) U/L Alkaline Phosphatase (39-117) U/L B-Natriuretic Peptide (<100) pg/mL Total Protein (6.5-8.0) g/dL Albumin (3.5-5.0) g/dL COVID-19 ([facility]) (Negative) COVID-19 Clin Com 12/26/20 Range/Units 08:55 WBC (4.8-10.8) X10*3/uL RBC (4.20-5.50) X10*6/uL Hgb (12.0-16.0) g/dl Hct (37-47) % MCV (80-98) fL MCH (27.0-33.0) pg MCHC (31.0-35.0) g/dl RDW (11.0-16.0) % Plt Count (160-400) X10*3/uL MPV (9.4-12.3) fL Immature Gran % (Auto) (0.0-0.4) % Neut % (Auto) (45-73) % Lymph % (Auto) (20-40) % [place] % (Auto) (2-11) % Eos % (Auto) (0-4) % Baso % (Auto) (0-2) % Lymph # (Auto) (1.2-4.9) X10*3/uL [place] # (Auto) (0.1-1.2) X10*3/uL Eos # (Auto) (0.0-0.4) X10*3/uL Baso # (Auto) (0.0-0.2) X10*3/uL Abs Immat Gran (auto) (0.00-0.03) X10*3/uL Absolute Neuts (auto) (2.0-8.3) X10*3/uL Absolute Nucleated RBC (0.0-0.012) X10*3/uL Nucleated RBC % (auto) (0.0-0.2) /100WBC PT 23.6 H (10.8-13.0) SEC INR 2.0 H (0.9-1.1) APTT (24.1-38.0) SEC Sodium (135-145) mmol/L Potassium (3.3-5.1) mmol/L Chloride (96-108) mmol/L Carbon Dioxide (22-29) mmol/L Anion Gap (12-20) BUN (9-16) mg/dL Creatinine (0.5-1.4) mg/dL Estim Creat Clear Calc Estimated GFR Random Glucose (60-115) mg/dL Calcium (8.4-10.2) mg/dL Magnesium (1.6-2.6) mg/dL Total Bilirubin (0.0-1.0) mg/dL Direct Bilirubin (0.0-0.5) mg/dL AST (5-31) U/L ALT (0-31) U/L Alkaline Phosphatase (39-117) U/L B-Natriuretic Peptide (<100) pg/mL Total Protein (6.5-8.0) g/dL Albumin (3.5-5.0) g/dL COVID-19 ([facility]) (Negative) COVID-19 Clin Com Discharge Plan Discharge Clinical Impression: Edema Qualifiers: Edema type: unspecified Qualified Code(s): R60.9 - Edema, unspecified Patient Disposition: er [facility] Instructions: Edema (ED), Chronic Wounds (ED), Acute Wounds (ED) Prescriptions: No Action acetaminophen 325 mg Tablet 650 mg PO Q6H PRN (Reason: Pain) RF: 0 nystatin 100,000 unit/gram Cream 1 appl TOPICAL BID RF: 0 oxycodone 5 mg Tablet 20 mg PO Q4H PRN (Reason: Pain, Severe (Pain Scale 7-10)) 7 Days RF: 0 doxycycline monohydrate 100 mg capsule 100 mg PO BID Qty: 14 RF: 0 cefuroxime axetil 500 mg tablet 500 mg PO BID Qty: 14 RF: 0 thiamine HCl (vitamin B1) 100 mg Tablet 100 mg PO DAILY RF: 0 ergocalciferol (vitamin D2) 25,000 unit Capsule 50,000 unit PO MO RF: 0 ammonium lactate 12 % Lotion 1 appl TOPICAL BID RF: 0 (DME) bedside commode Kit See Rx Instructions .ROUTE .MEDSUPPLY Qty: 1 RF: 0 (DME) walker [facility] See Rx Instructions .ROUTE .MEDSUPPLY Qty: 1 RF: 0 furosemide 40 mg Tablet 40 mg PO DAILY Qty: 0 RF: 0 diltiazem HCl 180 mg Capsule,Extended Release 24hr 180 mg PO DAILY Qty: 30 RF: 0 theophylline 400 mg tablet extended release 24 hr 400 mg PO DAILY Qty: 30 RF: 0 aspirin 81 mg Tablet,Delayed Release (Dr/Ec) 81 mg PO DAILY Qty: 30 RF: 0 pantoprazole 40 mg Tablet,Delayed Release (Dr/Ec) 40 mg PO DAILY Qty: 30 RF: 0 gabapentin 300 mg Capsule 300 mg PO TID Qty: 90 RF: 0 modafinil 100 mg tablet 100 mg PO BID Qty: 60 RF: 0 Anoro Ellipta 62.5-25 mcg/actuation blister with device 1 inh inhalation DAILY Qty: 60 RF: 0 warfarin 5 mg tablet 10 mg PO DAILY Qty: 60 RF: 0 clonazepam 0.5 mg tablet 0.5 mg PO DAILY RF: 0 Referrals: [facility] [Outside] - 2 days Interventions: ED Discharge Assessment Last Done: 12/26/20 11:44 Discharge Date/Time: 12/26/20 11:45
[2020-12-24] MEDS: Warfarin Sodium 10 MG TABLET PO (22:59)
--- NOTE | 2020-12-24 23:08 | PC.NURSE ---
PT AWAKE AND ALERT, MEDICATED FOR THE EVENING. PHARMACY GAVE PERMISSION TO GO AHEAD AND ADMINISTER CLONAZEPAM UNSCHEDULED SO SHE CAN HAVE HER EVENING DOSE. PT GIVEN 2 SANDWICHES AND WATER. PT HAD LEFT LEG DRESSING CHANGE, WILL CHANGE DRESSING ON RIGHT LEG. PT HAD HER SURGERY AT [facility], FOLLOWS UP WITH WOUND CARE AT [facility]. PT REPORTS THAT HER SURGEON IS AWARE THAT SHE IS IN THE [facility], AND THAT SHE MAY BE HERE FOR DAYS UNTIL PLACEMENT IS FOUND IN A SNF REHAB FOR PT. PT ENCOURAGED TO DISCUSS THE NEED FOR WOUND CARE WITH CASE MANAGEMENT IN THE MORNING. UNSURE IF A WOUND CONSULT WOULD BE HONORED SINCE PT IS IN THE ER. HOSPITAL BED BROUGHT DOWN FOR COMFORT.
[2020-12-25] VITALS (12 sets, daily range): BP systolic 87–152; BP diastolic 44–66; PULSE 71–82; RESP 16–20; TEMP 36.6–37.5; O2SAT 92–98
--- NOTE | 2020-12-25 01:21 | PC.NURSE ---
PT'S PARTNER BROUGHT IN HER CPAP MACHINE FROM HOME.
--- NOTE | 2020-12-25 06:25 | PC.NURSE ---
PT SLEPT MOST OF THE NIGHT. SHE CONFIRMS THAT SHE HAS BEEN TAKING BOTH WARFARIN AND LOVENOX DAILY, WITH DAILY INR CHECKS.
[2020-12-25] MEDS: oxyCODONE HCl Immed Release 5 MG TABLET 10 MG PO ×3 (06:33→13:07)
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
[2020-12-25 07:43] LABS: INTERNATIONAL NORM RATIO 1.7 (0.9-1.1); Prothrombin Time 20.6 SEC (10.8-13.0)
--- NOTE | 2020-12-25 08:41 | MHC.CM.ED ---
Received case management consult overnight. Patient came to ER due to weakness. Patient was d/c'd from [facility] on 12/18. Rehab was recommended. But patient insisted on going home. Patient is too weak to be at home. Spoke with patient's sig other/HCP Hoa via telephone at [phone]. Patient still has her wound vac. Patient is no longer on Suboxone for pain management. Patient and Hoa do not want to return to [facility] or [facility]. Hoa is requesting a facility close to their home. Hoa agreeable to referral being broadcasted within 5 miles of patient's home. Referral made via [email or web address]. Continue to monitor for d/c needs.
[2020-12-25] MEDS: Gabapentin 300 MG CAPSULE PO ×3 (08:44→21:05)
[2020-12-25] MEDS: Furosemide 40 MG TABLET PO (08:44)
[2020-12-25] MEDS: modafiniL 100 MG TABLET PO ×2 (08:44→14:30)
[2020-12-25] MEDS: Thiamine HCL 100 MG TABLET PO (08:44)
[2020-12-25] MEDS: Aspirin Enteric Coated 81 MG TABLET.DR PO (08:44)
[2020-12-25] MEDS: Enoxaparin Sodium 80 MG/0.8 ML SYRINGE 65 MG SUBCUT ×2 (08:45→18:54)
[2020-12-25] MEDS: dilTIAZem HCL CD 180 MG CAP.ER.24H PO (08:45)
[2020-12-25] MEDS: Omeprazole 20 MG CAPSULE.DR PO (09:36)
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
--- NOTE | 2020-12-25 11:06 | PC.NURSE ---
pt is going to be transferred [place] [facility] [place] needs to be evaluated by ortho who did pts surg
--- NOTE | 2020-12-25 11:14 | PC.NURSE ---
pharmacy called for missing meds
--- NOTE | 2020-12-25 12:31 | PC.NURSE ---
pt seen by wound care md, dr. bragg. pt aware of plan of care for l lateral wound to to cleanse with ns followed by wet to dry dressing and r post knee wound cleanse followed by dry guage and abd pad and swetha wrap, primary nurse jeanette aware.
--- NOTE | 2020-12-25 14:26 | PC.NURSE ---
PT SEEN BY WOUND CARE TODAY, RECOMMEND WET TO DRY DSG ON LEFT KNEE, PT REPOSITIONED SEVERAL TIMES THROUGH OUT DAY, NEEDS BEING MET NEW DRESSING S APPLIED
--- NOTE | 2020-12-25 14:54 | MHC.CM.ED ---
Patient remains in ER. Was seen by Wound Clinic MD with wound recommendations. Will upload consult note when available. [facility] since patient is off Suboxone. But not until tomorrow because they have to order a wound vac. Spoke with patient's sig other/HCP Oha via telephone at [phone] [facility] Info provided via email from [employer]. Continue to monitor for d/c needs.
[2020-12-25] MEDS: hydrOXYzine HCL 25 MG TABLET PO (15:40)
--- NOTE | 2020-12-25 17:26 | MHC.CM.ED ---
Met with pt and her partner. Given [facility] information on all local SNF. Pt partner and patient very pleased with [facility] and are willing to go there tomorrow for rehab. Pt aware that the bed will be available and that CM will call [facility] in the am to arrange a time for her to go. Pt aware that ambulance transportation will be booked then. Pt tells CM that she feels much better off the suboxone and that the Vistaril she received has been very helpful. CM will follow for d/c needs.
[2020-12-25] MEDS: Warfarin Sodium 5 MG TABLET 10 MG PO (18:53)
[2020-12-25] MEDS: clonazePAM 0.5 MG TABLET PO (18:54)
--- NOTE | 2020-12-25 19:01 | PC.NURSE ---
Dr. Franco notified of patient and families concerns about confusion regarding why she was here and left sided tremor. neuros intake. pt is a and o x 4. vss.
[2020-12-25 20:16] LABS: INTERNATIONAL NORM RATIO 1.9 (0.9-1.1); Prothrombin Time 22.5 SEC (10.8-13.0)
--- NOTE | 2020-12-25 21:12 | PC.NURSE ---
PATIENT ATE 100% OF MEAL. SHE DRANK 360 ML OF FLUIDS, PATIENT OUTPUT WAS 2000 ML, PT WAS CHANGED AND REPOSITIONED X3 ON THIS SHIFT.
--- NOTE | 2020-12-25 23:33 | PC.NURSE ---
pt found screaming in bed please help me it appeared that patient had awoken with acute anxiety, lung sounds diminished and wheezing heard. Rt called to bedside. pt repositioned to seated and placed on NC at baseline o2. oxygen status improved. aware.
[2020-12-26 02:00] VITALS: RESP 20
[2020-12-26] MEDS: oxyCODONE HCl Immed Release 5 MG TABLET 10 MG PO ×2 (05:29→07:38)
[2020-12-26] MEDS: Omeprazole 20 MG CAPSULE.DR PO (05:30)
[2020-12-26 07:42] VITALS: BP 140/57; PULSE 80; RESP 18; O2SAT 95
--- NOTE | 2020-12-26 08:34 | MHC.CM.ED ---
Patient remains in ER. No wound care consult note is available at this time. Spoke with J[facility]ita [facility]. She will speak to the MD. Continue to monitor for d/c needs.
--- NOTE | 2020-12-26 08:44 | PC.NURSE ---
patient bed linen changed over. patient eating breakfast. alert and oriented x3.
[2020-12-26] MEDS: Thiamine HCL 100 MG TABLET PO (08:55)
[2020-12-26] MEDS: Gabapentin 300 MG CAPSULE PO (08:55)
[2020-12-26] MEDS: Theophylline Anhydrous ER 400 MG TAB.ER.24H PO (08:55)
[2020-12-26] MEDS: Furosemide 40 MG TABLET PO (08:55)
[2020-12-26] MEDS: Aspirin Enteric Coated 81 MG TABLET.DR PO (08:55)
[2020-12-26] MEDS: Enoxaparin Sodium 80 MG/0.8 ML SYRINGE 65 MG SUBCUT (08:55)
[2020-12-26 08:56] VITALS: BP 122/41; PULSE 88
[2020-12-26] MEDS: dilTIAZem HCL CD 180 MG CAP.ER.24H PO (08:56)
[2020-12-26 09:18] LABS: Prothrombin Time 23.6 SEC (10.8-13.0)
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
--- NOTE | 2020-12-26 10:48 | MHC.CM.ED ---
[facility] is able to offer a bed. Patient can leave at 1130am. [facility] booked. Med nec with chart. Patient, sig other Rufus Camara RN and Mindy WILLARD aware. Continue to monitor for d/c needs.
[2020-12-26 11:00] VITALS: BP 116/44; PULSE 78; RESP 16; TEMP 37.4; O2SAT 94
--- NOTE | 2020-12-26 13:04 | MHC.CM.ED ---
Received telephone call from Rena at [facility]. Patient is stating the wound vac is supposed to be put back on. T/W verified with Wound Consult note, wound vac is to be stopped at this time. Hoa made aware via telephone and verbalizes understanding. Patient had her bipap here and it went with her to [facility].
== END 2020-12-26 11:45 | disposition skilled nursing facility (03) ==
PROVIDERS: Emergency Medicine; Emergency Provider Emergency Medicine Emergency Medical Services; PCP Family Medicine
DX: R60.0 Localized edema (principal); M79.604 Pain in right leg; R06.00 Dyspnea, unspecified; J44.9 Chronic obstructive pulmonary disease, unspecified; I48.91 Unspecified atrial fibrillation; G47.33 Obstructive sleep apnea (adult) (pediatric); Z20.822 Contact with and (suspected) exposure to COVID-19; Z99.81 Dependence on supplemental oxygen; Z79.01 Long term (current) use of anticoagulants; Z79.899 Other long term (current) drug therapy
CPT/HCPCS: 36415; 71045; 80048; 80076; 83735; 83880; 85025; 85027; 85610; 85730; 87635; 93005; 93970; 96372; 96374; 96375; 97162; 99285; J1170; J1650; J1940

== ENCOUNTER 2021-01-20 23:22 | Inpatient (IN) | payer MEDICARE, MEDICAID, SELFPAY ==
--- NOTE | ~2021-01-20 | XR_ITS ---
EXAMINATION: RIGHT KNEE AND RIGHT FEMUR CLINICAL INFORMATION: Fall. Right knee pain. Right hip pain. COMPARISON: Right knee 12/21/2020 TECHNIQUE: 2 views right knee and 3 views right femur FINDINGS: Right femur: There is an distal metadiaphyseal fracture of the femur. The fracture looks acute. There is a lateral plate and screws extending from the mid to the distal femur.The plate and screws probably old. The knee joint and hip joint appears intact. Right knee: There is suboptimal visualization of knee joint due to position. There is loss of medial and lateral compartment joint space. No fracture seen involving the proximal tibia or fibula except for a distal femoral fracture. XR/XR knee RT 4V IMPRESSION: Comminuted distal femoral fracture. There is no extension to the articular surface. There is a lateral femoral plate and screws from the mid to distal segment likely from old fracture. There is no abnormality involving the right knee joint except for degenerative arthritic changes..
--- NOTE | ~2021-01-20 | CT_ITS ---
EXAMINATION: CT KNEE WITHOUT CONTRAST, RIGHT CLINICAL INFORMATION: Right knee pain status post fall COMPARISON: X-ray 01/21/2021 right femur and right knee and 12/21/2020 right knee. There is no CT available for comparison. TECHNIQUE: Axial 2 mm thin and reformatted 1 mm thin sagittal and coronal images of right knee were obtained from right proximal femur 2 right proximal tibia and fibula. This CT examination was performed using dose optimization techniques as appropriate, variously including the following: *Automated exposure control *Adjustment of mA and/or kV according to patient size (this includes techniques or standardized protocols for targeted exams where dose is matched to indication/reason for exam; i.e. extremities or head) *Use of iterative reconstruction technique DLP: 292 mGy-cm FINDINGS: There is a lateral femoral plate and screws stabilizing old fracture. There is no loosening of the hardware.. In addition to a transverse fracture through the distal femur there is comminuted fracture involving the medial distal femur. There is also a transverse fracture line extending through the right lateral condyle. The medial condyle is normal. There is mild suprapatellar joint effusion. There is compartment.) With loss of joint space and subchondral cystic changes consistent with degenerative arthritis. The patella appears intact. There is areas of focal lucency likely osteopenia. No fracture line is seen in the tibia or fibula. CT/CT knee RT wo con IMPRESSION: Transverse distal femoral fracture. In addition there is comminuted fractures involving the medial femoral condyle. There is a lateral plate and screws stabilizing old distal femoral fracture. There is medial femoral condylar fracture without displacement. There is diffuse osteopenia more so within the proximal tibia. There is mild suprapatellar joint effusion. Degenerative arthritic changes medial compartment with periarticular spurring.
--- NOTE | ~2021-01-20 | XR_ITS ---
EXAMINATION: RIGHT KNEE AND RIGHT FEMUR CLINICAL INFORMATION: Fall. Right knee pain. Right hip pain. COMPARISON: Right knee 12/21/2020 TECHNIQUE: 2 views right knee and 3 views right femur FINDINGS: Right femur: There is an distal metadiaphyseal fracture of the femur. The fracture looks acute. There is a lateral plate and screws extending from the mid to the distal femur.The plate and screws probably old. The knee joint and hip joint appears intact. Right knee: There is suboptimal visualization of knee joint due to position. There is loss of medial and lateral compartment joint space. No fracture seen involving the proximal tibia or fibula except for a distal femoral fracture. XR/XR femur RT 2V IMPRESSION: Comminuted distal femoral fracture. There is no extension to the articular surface. There is a lateral femoral plate and screws from the mid to distal segment likely from old fracture. There is no abnormality involving the right knee joint except for degenerative arthritic changes..
[2021-01-20 23:39] VITALS: BP 140/52; PULSE 72; RESP 16; TEMP 36.7; O2SAT 96; BMI 49.4
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
[2021-01-21] VITALS (13 sets, daily range): BP systolic 135–155; BP diastolic 64–78; PULSE 70–85; RESP 14–28; TEMP 36.2–36.8; O2SAT 94–99; BMI 50.3
[2021-01-21] MEDS: HYDROmorphone HCl 0.5 MG/0.5 ML SYRINGE IVPUSH (00:43)
[2021-01-21] MEDS: Piperacillin Sodium/Tazobactam 3.375 GM in 0.9 % Sodium Chloride 50 ML IV ×4 (00:48→20:29)
[2021-01-21 01:43] LABS: COVID-19 Test Negative (Negative); IDNOW Serial# 9DD0AD1C
[2021-01-21] MEDS: oxyCODONE HCl Immed Release 5 MG TABLET PO (02:10)
[2021-01-21] MEDS: HYDROmorphone HCl 0.5 MG/0.5 ML SYRINGE 1 MG IVPUSH ×3 (02:43→16:57)
[2021-01-21] MEDS: Cyclobenzaprine HCl 10 MG TABLET PO ×3 (03:27→20:35)
--- NOTE | 2021-01-21 03:56 | PC.NURSE ---
nurse to nurse report given to Siena ALEJANDRE
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
[2021-01-21] MEDS: HYDROmorphone HCl 1 MG/ML SYRINGE IVPUSH (05:11)
[2021-01-21 06:11] LABS: MANUAL DIFF FLAG NO
[2021-01-21 06:37] LABS: Basophils Percent Auto 0.3 % (0-2); Eosinophils Absolute Auto 0.3 X10*3/uL (0.0-0.4); Eosinophils Percent Auto 3.2 % (0-4); Hematocrit 30.7 % (37-47); Hemoglobin 9.3 g/dl (12.0-16.0); Imm Gran Abs Auto 0.03 X10*3/uL (0.00-0.03); Imm Gran Pct Auto 0.3 % (0.0-0.4); Lymphocytes Absolute Auto 1.1 X10*3/uL (1.2-4.9); Lymphocytes Percent Auto 10.8 % (20-40); Mean Corpuscular HGB Conc 30.3 g/dl (31.0-35.0); Mean Corpuscular Hemoglobin 26.6 pg (27.0-33.0); Monocytes Absolute Auto 0.8 X10*3/uL (0.1-1.2); Monocytes Percent Auto 8.2 % (2-11); Neutrophils Absolute Auto 7.8 X10*3/uL (2.0-8.3); Neutrophils Percent Auto 77.2 % (45-73); Platelet Count 294 X10*3/uL (160-400); Red Blood Count 3.49 X10*6/uL (4.20-5.50); Red Cell Distribution Width 13.7 % (11.0-16.0); White Blood Count 10.1 X10*3/uL (4.8-10.8)
[2021-01-21 06:40] LABS: INTERNATIONAL NORM RATIO 4.5 (0.9-1.1); Prothrombin Time 54.6 SEC (10.8-13.0)
[2021-01-21 06:58] LABS: Anion Gap 9 (12-20); Blood Urea Nitrogen 16 mg/dL (9-16); Calcium 9.1 mg/dL (8.4-10.2); Carbon Dioxide 39 mmol/L (22-29); Chloride 97 mmol/L (96-108); Estimated Glomerular Filt Rate > 60; Glucose Random 112 mg/dL (60-115); Potassium 3.8 mmol/L (3.3-5.1); Sodium 141 mmol/L (135-145)
[2021-01-21] MEDS: oxyCODONE HCl Immed Release 5 MG TABLET 20 MG PO ×3 (08:00→20:28)
[2021-01-21] MEDS: 0.9 % Sodium Chloride Flush 3 ML SYRINGE IVFLUSH ×2 (08:04→15:49)
--- NOTE | 2021-01-21 10:29 | PHA.MEDREC ---
Pharmacy Consult ? Medication Reconciliation Pharmacy has completed the medication reconciliation. Patient was in a lot of pain we I met with her. Many medications do not have a recent fill history since patient recently discharged from rehab at [facility]. Med list based off of medications from discharge summary of rehab. Patient started on Warfarin in rehab. Swathi Rucker, RamaD
[2021-01-21] MEDS: Gabapentin 300 MG CAPSULE PO ×2 (13:52→20:30)
[2021-01-21] MEDS: vancomycin HCL 1,250 MG in 0.9 % Sodium Chloride 250 ML 166.67 MG IV (13:54)
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
[2021-01-21] MEDS: clonazePAM 0.5 MG TABLET PO (20:30)
[2021-01-21] MEDS: modafiniL 100 MG TABLET PO (20:30)
[2021-01-22] VITALS (9 sets, daily range): BP systolic 121–156; BP diastolic 58–89; PULSE 74–88; RESP 18–20; TEMP 36–36.7; O2SAT 93–97
[2021-01-22] MEDS: 0.9 % Sodium Chloride Flush 3 ML SYRINGE IVFLUSH ×3 (00:24→16:10)
[2021-01-22] MEDS: Piperacillin Sodium/Tazobactam 3.375 GM in 0.9 % Sodium Chloride 50 ML IV ×4 (00:24→18:50)
[2021-01-22] MEDS: HYDROmorphone HCl 0.5 MG/0.5 ML SYRINGE 1 MG IVPUSH ×6 (00:25→21:07)
[2021-01-22] MEDS: vancomycin HCL 1,250 MG in 0.9 % Sodium Chloride 250 ML 166.67 MG IV (01:33)
[2021-01-22] MEDS: clonazePAM 0.5 MG TABLET PO ×3 (05:46→20:15)
[2021-01-22 06:18] LABS: MANUAL DIFF FLAG NO
[2021-01-22 06:49] LABS: Basophils Percent Auto 0.3 % (0-2); Eosinophils Absolute Auto 0.5 X10*3/uL (0.0-0.4); Eosinophils Percent Auto 4.6 % (0-4); Hematocrit 32.6 % (37-47); Hemoglobin 9.8 g/dl (12.0-16.0); Imm Gran Abs Auto 0.03 X10*3/uL (0.00-0.03); Imm Gran Pct Auto 0.3 % (0.0-0.4); Lymphocytes Percent Auto 9.4 % (20-40); Mean Corpuscular HGB Conc 30.1 g/dl (31.0-35.0); Mean Corpuscular Hemoglobin 26.5 pg (27.0-33.0); Mean Corpuscular Volume 88.1 fL (80-98); Monocytes Absolute Auto 0.9 X10*3/uL (0.1-1.2); Monocytes Percent Auto 9.3 % (2-11); Neutrophils Absolute Auto 7.7 X10*3/uL (2.0-8.3); Neutrophils Percent Auto 76.1 % (45-73); Platelet Count 330 X10*3/uL (160-400); Red Cell Distribution Width 13.6 % (11.0-16.0); White Blood Count 10.1 X10*3/uL (4.8-10.8)
[2021-01-22 06:56] LABS: INTERNATIONAL NORM RATIO 3.9 (0.9-1.1); Prothrombin Time 46.6 SEC (10.8-13.0)
[2021-01-22] MEDS: Cyclobenzaprine HCl 10 MG TABLET PO ×2 (07:14→13:25)
[2021-01-22] MEDS: dilTIAZem HCL CD 180 MG CAP.ER.24H PO (07:30)
[2021-01-22] MEDS: Thiamine HCL 100 MG TABLET PO (07:30)
[2021-01-22] MEDS: Omeprazole 20 MG CAPSULE.DR PO (07:30)
[2021-01-22] MEDS: Gabapentin 300 MG CAPSULE PO ×3 (07:30→20:15)
[2021-01-22] MEDS: modafiniL 100 MG TABLET PO (07:30)
[2021-01-22] MEDS: Aspirin Enteric Coated 81 MG TABLET.DR PO (07:30)
[2021-01-22] MEDS: Furosemide 40 MG TABLET PO (07:31)
[2021-01-22] MEDS: Theophylline Anhydrous ER 400 MG TAB.ER.24H PO (07:31)
[2021-01-22] MEDS: oxyCODONE HCl Immed Release 5 MG TABLET 20 MG PO ×3 (07:32→18:27)
[2021-01-22 07:39] LABS: Anion Gap 10 (12-20); Blood Urea Nitrogen 12 mg/dL (9-16); Calcium 9.1 mg/dL (8.4-10.2); Carbon Dioxide 41 mmol/L (22-29); Chloride 97 mmol/L (96-108); Creatinine Clr Calc Pharmacy 107.8; Estimated Glomerular Filt Rate > 60; Glucose Fasting 103 mg/dL (60-99); Potassium 3.9 mmol/L (3.3-5.1); Sodium 144 mmol/L (135-145)
--- NOTE | 2021-01-22 09:51 | MHC.CM.PN ---
NURSE PATROL INSPECTOR NOTE LATE ENTRY ELECTRONIC MEDICAL RECORD REVIEWED ALONG WITH CASE DISCUSSED WITH STAFF NURSE AND ON MULTIPLE DISCIPLINARY ROUNDS. MET WITH PATIENT EXPLAINED THE MEDICARE IMM AND LEFT WITH PATIENT WITH ATTACHED NAME CARD , EDUCATED ABOUT IMPORTANCE OF HAVING A HEALTH CARE PROXY SHE REPORTED SHE HAS ONE AT HOME NAMING HER AGENT ADRIANA HER . PATIENT HAS BEEN IN A [facility] AND HAD BEEN JUST DISCHARGED WHEN SHE WAS BEING TRANSFERRED FROM THE STRETCHER TO THE BED SHE FELL HER WOUND VAC WAS ALSO REMOVED ON THE DAY OF DISCHARGE FROM THE FACILITY PER PATIENT REPORT AND CHART DOCUMENTATION , PATIENT REPORTED SHE WAS ON SUBOXONE AND WAS COMING TO THE [facility] , SHE WAS ON IT AT THE FACILITY AND THEN OFF AND GIVEN NARCOTICS AND DISCHARGED HOME ON NARCOTICS , I CHECKED WITH THE RECOVER SUPPORT NURSE NICOLASA AND SHE REPORTED THAT HER PRESCRIPTION RAN OUT IN OCTOBER AND SHE WAS NOT IN THE CLINIC BECAUSE SHE WAS IN REHAB, PATIENT ALSO REPORTS THAT SHE WAS ON BIPAP BUT DID NOT BRING IT TO THE HOSPITAL , VIA TIGER TEXT TO JERALD DEMARCO IN RESPIRATORY TO SEE IF THEY CAN ARRANGE FOR BIPAP HERE IN THE HOSPITAL . STONEWORKING BELT SANDER TO CONTINUE TO FOLLOW PATIENT WAS ADMITTED WITH THE DIAGNOSIS OF CELLULITES AND TIBIAL FRACTURE DISCHARGE PLAN HOME WITH THE [facility] FOR [facility] HOME PT/OT REFERRAL INIATED BACK IF OFF NARCOTICS AT DISCHARGE WILL REFER BACK TO [facility] FOR SUBOXONE PCP DR CASTRO REPORTED SHE HAS A HEALTH CARE PROXY, REQUESTED COPY BE BROUGHT IN
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
[2021-01-22 13:55] LABS: Vancomycin Trough 19.1 mcg/mL (10.0-20.0)
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
[2021-01-22] MEDS: Docusate Sodium 100 MG CAPSULE PO (14:14)
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
[2021-01-22] MEDS: Cyclobenzaprine HCl 5 MG TABLET PO (20:15)
[2021-01-22] MEDS: vancomycin HCL 1,000 MG in 0.9 % Sodium Chloride 250 ML 270 MG IV (21:10)
[2021-01-23] VITALS (8 sets, daily range): BP systolic 115–161; BP diastolic 50–74; PULSE 67–91; RESP 18–20; TEMP 36.1–36.9; O2SAT 94–97
[2021-01-23] MEDS: 0.9 % Sodium Chloride Flush 3 ML SYRINGE IVFLUSH ×4 (01:05→23:23)
[2021-01-23] MEDS: Piperacillin Sodium/Tazobactam 3.375 GM in 0.9 % Sodium Chloride 50 ML IV ×4 (01:05→18:19)
[2021-01-23] MEDS: HYDROmorphone HCl 0.5 MG/0.5 ML SYRINGE 1 MG IVPUSH ×5 (02:02→22:13)
[2021-01-23] MEDS: Cyclobenzaprine HCl 10 MG TABLET PO ×2 (02:03→18:18)
[2021-01-23] MEDS: oxyCODONE HCl Immed Release 5 MG TABLET 20 MG PO ×4 (04:33→20:28)
[2021-01-23 07:02] LABS: Hematocrit 31.5 % (37-47); Hemoglobin 9.4 g/dl (12.0-16.0); INTERNATIONAL NORM RATIO 2.2 (0.9-1.1); Mean Corpuscular HGB Conc 29.8 g/dl (31.0-35.0); Mean Corpuscular Hemoglobin 26.3 pg (27.0-33.0); Platelet Count 303 X10*3/uL (160-400); Prothrombin Time 26.5 SEC (10.8-13.0); Red Blood Count 3.58 X10*6/uL (4.20-5.50); Red Cell Distribution Width 13.7 % (11.0-16.0); White Blood Count 8.1 X10*3/uL (4.8-10.8)
[2021-01-23 08:01] LABS: Blood Urea Nitrogen 13 mg/dL (9-16); Calcium 8.8 mg/dL (8.4-10.2); Creatinine Clr Calc Pharmacy 109.4; Estimated Glomerular Filt Rate > 60; Glucose Random 109 mg/dL (60-115)
[2021-01-23 08:06] LABS: Anion Gap 11 (12-20); Carbon Dioxide 44 mmol/L (22-29); Chloride 93 mmol/L (96-108); Potassium 3.5 mmol/L (3.3-5.1); Sodium 144 mmol/L (135-145)
[2021-01-23] MEDS: Aspirin Enteric Coated 81 MG TABLET.DR PO (09:19)
[2021-01-23] MEDS: Furosemide 40 MG TABLET PO (09:19)
[2021-01-23] MEDS: dilTIAZem HCL CD 180 MG CAP.ER.24H PO (09:20)
[2021-01-23] MEDS: modafiniL 100 MG TABLET PO (09:20)
[2021-01-23] MEDS: Cyclobenzaprine HCl 5 MG TABLET PO ×2 (09:20→20:28)
[2021-01-23] MEDS: clonazePAM 0.5 MG TABLET PO (09:20)
[2021-01-23] MEDS: Thiamine HCL 100 MG TABLET PO (09:20)
[2021-01-23] MEDS: Theophylline Anhydrous ER 400 MG TAB.ER.24H PO (09:20)
[2021-01-23] MEDS: Gabapentin 300 MG CAPSULE PO ×3 (09:20→20:28)
[2021-01-23] MEDS: Omeprazole 20 MG CAPSULE.DR PO (09:20)
[2021-01-23] MEDS: vancomycin HCL 1,000 MG in 0.9 % Sodium Chloride 250 ML 270 MG IV ×2 (09:24→22:07)
[2021-01-23] MEDS: Docusate Sodium 100 MG CAPSULE PO (12:21)
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
--- NOTE | 2021-01-23 16:21 | MHC.CM.PN ---
NURSE SURGERY SPECIALIST NOTE ELECTRONIC MEDICAL RECORD REVIEWED ALONG WITH CASE DISCUSSED WITH STAFF NURSE AND ON MULTIPLE DISCIPLINARY ROUNDS ,MET WITH PATIENT , AWAKE, ALERT ORIENTATED X REPORTEDLY FEELING MUCH BETTER, SHE REPORTED TO THIS AIR SUPPORT OPERATIONS OPERATOR THAT SHE HAD BEEN IN CONTACT TODAY WITH DR GARCIA AT [facility] TO SEE IF THEY ARE STILL PLANNING SURGICAL PROCEDURE TOMORROW OR LAURENCE, IF WAITING HOSPITALIST INFORMED ME SHE WILL PROBABLY BE DISCHARGED 1-2 DAYS TO REHAB WE DISCUSSED THIS AND SHE WOULD LIKE A REFERRAL TO [facility] INIARTED REFERRAL AND THEY ARE CLINICALLY ACCEPTING HER PENDING BED AVAILABILITY AND NEGATIVE COVID TEST DISCHARGE PLAN 1. STR TO [facility] FOR REHAB 2. POST DISCHARGE FROM REHAB -HOME WITH RE START WITH [facility] -HOME PT/OT 3. PCP DR FOMRAN FOLLOW UP PER DISCHARGE INSTRUCTIONS 4. TRANSPORTATION ACTION BLS 5 REQUESTED COPY OF THE HCP FROM [facility]
[2021-01-23] MEDS: Warfarin Sodium 4 MG TABLET 8 MG PO (18:18)
[2021-01-23 21:31] LABS: Vancomycin Random 15.8 mcg/mL (15-20)
[2021-01-24] MEDS: Piperacillin Sodium/Tazobactam 3.375 GM in 0.9 % Sodium Chloride 50 ML IV ×3 (02:29→12:04)
[2021-01-24 03:39] VITALS: BP 144/64; PULSE 77; RESP 16; TEMP 36; O2SAT 96
[2021-01-24] MEDS: HYDROmorphone HCl 0.5 MG/0.5 ML SYRINGE 1 MG IVPUSH ×3 (06:09→16:47)
[2021-01-24 06:16] LABS: INTERNATIONAL NORM RATIO 1.8 (0.9-1.1); Prothrombin Time 21.2 SEC (10.8-13.0)
[2021-01-24 07:14] LABS: Anion Gap 13 (12-20); Blood Urea Nitrogen 13 mg/dL (9-16); Calcium 9.2 mg/dL (8.4-10.2); Carbon Dioxide 43 mmol/L (22-29); Chloride 92 mmol/L (96-108); Creatinine Clr Calc Pharmacy 96.7; Estimated Glomerular Filt Rate > 60; Glucose Random 113 mg/dL (60-115); Potassium 3.7 mmol/L (3.3-5.1); Sodium 144 mmol/L (135-145)
[2021-01-24 07:38] VITALS: BP 113/54; PULSE 73; RESP 18; TEMP 36.3; O2SAT 97
[2021-01-24] MEDS: Gabapentin 300 MG CAPSULE PO ×2 (08:11→13:56)
[2021-01-24] MEDS: Theophylline Anhydrous ER 400 MG TAB.ER.24H PO (08:11)
[2021-01-24] MEDS: Thiamine HCL 100 MG TABLET PO (08:11)
[2021-01-24] MEDS: Aspirin Enteric Coated 81 MG TABLET.DR PO (08:11)
[2021-01-24] MEDS: Omeprazole 20 MG CAPSULE.DR PO (08:11)
[2021-01-24] MEDS: Cyclobenzaprine HCl 5 MG TABLET PO (08:11)
[2021-01-24] MEDS: clonazePAM 0.5 MG TABLET PO ×2 (08:11→13:56)
[2021-01-24] MEDS: modafiniL 100 MG TABLET PO (08:11)
[2021-01-24] MEDS: Furosemide 40 MG TABLET PO (08:11)
[2021-01-24] MEDS: dilTIAZem HCL CD 180 MG CAP.ER.24H PO (08:11)
[2021-01-24] MEDS: 0.9 % Sodium Chloride Flush 3 ML SYRINGE IVFLUSH ×2 (08:12→16:47)
[2021-01-24] MEDS: oxyCODONE HCl Immed Release 5 MG TABLET 20 MG PO ×3 (08:54→18:42)
[2021-01-24] MEDS: Cyclobenzaprine HCl 10 MG TABLET PO ×2 (08:55→13:56)
[2021-01-24] MEDS: Docusate Sodium 100 MG CAPSULE PO (08:56)
[2021-01-24] MEDS: vancomycin HCL 1,000 MG in 0.9 % Sodium Chloride 250 ML 270 MG IV (08:57)
--- NOTE | 2021-01-24 11:08 | MHC.INPTTRAN ---
Having freq muscle spasms in right leg. Getting sceduled and prn flexeril with some eff. also takes prn oxycodone. 02 at 3-4 liters, this is her baseline 02 needs. Has F/C for immobility. Had been getting IV A/B therapy for cellulitis of left leg. Areas have Silver AG and gauze and wrap. change QOD Changed on . Right thigh has silver Ag as well with foam dsg cover. Limited ROM to right leg. Takes meds whole, Fab diet. C Pap at [facility]. On coumadin for A Fib INR today is 1.8 VSS thanks.
[2021-01-24 11:10] VITALS: BP 113/54; PULSE 73; O2SAT 97
[2021-01-24 11:27] LABS: COVID-19 Test Negative (Negative); IDNOW Serial# 9DD0AD1C
[2021-01-24 11:39] VITALS: BP 149/72; PULSE 84; RESP 18; TEMP 36.3; O2SAT 92
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
--- NOTE | 2021-01-24 12:28 | MHC.CM.PN ---
PATIENT TO TRANSFER TO [facility]. TIME SCHEDULED FOR 1800. UNIT, PATIENT, AND RN AWARE OF PLAN.
[2021-01-24 15:36] VITALS: BP 152/86; PULSE 75; RESP 18; TEMP 36.4; O2SAT 98
[2021-01-24] MEDS: Warfarin Sodium 4 MG TABLET 8 MG PO (16:47)
[2021-01-24 19:56] VITALS: BP 135/60; PULSE 82; RESP 17; TEMP 36.8; O2SAT 97
== END 2021-01-24 20:58 | disposition skilled nursing facility (03) | DRG 920 ==
LOC: HO.ED 01-21 00:18 → HO.EDOVER 01-21 02:16 → HO.S3 01-21 03:28
PROVIDERS: Internal Medicine; Admitting Provider Internal Medicine; Emergency Provider Internal Medicine; PCP Family Medicine; Visit Provider Student in an Organized Health Care Education/Training Program
DX: T81.89XA Other complications of procedures, not elsewhere classified, initial encounter (principal); L03.116 Cellulitis of left lower limb; S82.101A Unspecified fracture of upper end of right tibia, initial encounter for closed fracture; F11.20 Opioid dependence, uncomplicated; E66.2 Morbid (severe) obesity with alveolar hypoventilation; Z68.43 Body mass index [BMI] 50.0-59.9, adult; W18.30XA Fall on same level, unspecified, initial encounter; Y93.9 Activity, unspecified; R79.1 Abnormal coagulation profile; Z20.822 Contact with and (suspected) exposure to COVID-19; Z87.891 Personal history of nicotine dependence; Y92.59 Other trade areas as the place of occurrence of the external cause; Y99.9 Unspecified external cause status; Z88.5 Allergy status to narcotic agent; Z79.01 Long term (current) use of anticoagulants; Z99.81 Dependence on supplemental oxygen; Z79.82 Long term (current) use of aspirin; Z79.899 Other long term (current) drug therapy
CPT/HCPCS: 36415; 73552; 73564; 73700; 80048; 80202; 85025; 85027; 85610; 87040; 87635; 94660; 97110; 97161; 99285; C1758; J1170; J2543; J3370

== ENCOUNTER 2021-03-03 11:01 | Outpatient (REF) | payer MEDICARE, MEDICAID, SELFPAY ==
[2021-03-03 14:02] LABS: MANUAL DIFF FLAG NO
[2021-03-03 14:06] LABS: Basophils Percent Auto 0.2 % (0-2); Eosinophils Absolute Auto 0.5 X10*3/uL (0.0-0.4); Eosinophils Percent Auto 5.5 % (0-4); Hematocrit 30.7 % (37-47); Hemoglobin 9.1 g/dl (12.0-16.0); Imm Gran Abs Auto 0.02 X10*3/uL (0.00-0.03); Imm Gran Pct Auto 0.2 % (0.0-0.4); Lymphocytes Absolute Auto 1.3 X10*3/uL (1.2-4.9); Lymphocytes Percent Auto 16.3 % (20-40); Mean Corpuscular HGB Conc 29.6 g/dl (31.0-35.0); Mean Corpuscular Hemoglobin 25.6 pg (27.0-33.0); Mean Corpuscular Volume 86.2 fL (80-98); Monocytes Absolute Auto 0.7 X10*3/uL (0.1-1.2); Monocytes Percent Auto 8.5 % (2-11); Neutrophils Absolute Auto 5.6 X10*3/uL (2.0-8.3); Neutrophils Percent Auto 69.3 % (45-73); Platelet Count 244 X10*3/uL (160-400); Red Blood Count 3.56 X10*6/uL (4.20-5.50); Red Cell Distribution Width 15.4 % (11.0-16.0); White Blood Count 8.1 X10*3/uL (4.8-10.8)
[2021-03-03 14:46] LABS: Erythrocyte Sedimentation Rate 51 MM/HR (0-20)
[2021-03-03 15:13] LABS: Alanine Aminotransferase 7 U/L (0-31); Albumin Level 3.4 g/dL (3.5-5.0); Alkaline Phosphatase 98 U/L (39-117); Anion Gap 11 (12-20); Aspartate Amino Transferase 9 U/L (5-31); Bilirubin Direct < 0.2 mg/dL (0.0-0.5); Bilirubin Total 0.2 mg/dL (0.0-1.0); Blood Urea Nitrogen 16 mg/dL (9-16); Calcium 8.9 mg/dL (8.4-10.2); Carbon Dioxide 42 mmol/L (22-29); Chloride 94 mmol/L (96-108); Estimated Glomerular Filt Rate > 60; Glucose Random 104 mg/dL (60-115); Potassium 3.2 mmol/L (3.3-5.1); Sodium 144 mmol/L (135-145); Total Protein 6.3 g/dL (6.5-8.0)
[2021-03-03 15:41] LABS: Vancomycin Trough 15.6 mcg/mL (10.0-20.0)
== END 2021-03-03 11:02 | disposition home or self-care (01) ==
LOC: HO.HVNA 11:01
PROVIDERS: Visit Provider Internal Medicine Infectious Disease
DX: M86.9 Osteomyelitis, unspecified (principal); B95.62 Methicillin resistant Staphylococcus aureus infection as the cause of diseases classified elsewhere
CPT/HCPCS: 36415; 80053; 80076; 80202; 85025; 85652; 86140

== ENCOUNTER 2021-03-15 20:46 | Emergency (ER) | payer MEDICARE, MEDICAID, SELFPAY ==
--- NOTE | ~2021-03-15 | XR_ITS ---
EXAMINATION: XR KNEE, RIGHT CLINICAL INFORMATION: Pain COMPARISON: 01/21/2021 TECHNIQUE: Four views of the right knee. FINDINGS: There is plate and screw fixation hardware along the distal femur. Fragmented appearance of the colon with laterally positioned and again noted. Medial compartment joint space narrowing at the knee with osteophyte formation. Cannot evaluate for joint effusion within images. Soft tissue swelling. XR/XR knee RT 2V IMPRESSION: Fixation hardware at the distal femur with fragmented appearance of the femur. Adjacent cement. Alignment at the knee maintained with medial compartment narrowing and osteophytes.
[2021-03-15 20:48] VITALS: BP 159/76; PULSE 77; RESP 16; TEMP 36.3; O2SAT 99; BMI 45.3
--- NOTE | 2021-03-15 22:55 | ED_ITS ---
HPI - Extremity Injury (Lower) General Chief Complaint: Extremity Injury, Lower Stated Complaint: LEG PAIN Source: patient Mode of arrival: ambulatory Limitations: no limitations History of Present Illness HPI Narrative: 61-year-old female presents with right knee pain after bumping her knee on the side of her hospital bed. She is on oxycodone 20 mg every 4 hours for pain management, states that she ran out of her pain medication earlier today. She does not report any other significant injuries, and is followed by wound management for seroma to the left alexander. She denies fevers, chills, chest pain pressure, palpitations, shortness breath, shortness breath on exertion, and any other concerning symptoms. MD complaint: knee injury Onset (ago): day(s) (1) Type of Injury: blunt Place: home Severity: severe Severity scale (1-10): 10 Relieving factors: nothing Exacerbating factors: weight bearing, movement and palpation Context: direct blow Associated symptoms: ambulatory Other symptoms: none Related Data Home Medications Medication Instructions Recorded Confirmed clonazepam 0.5 mg tablet 0.5 mg PO DAILY 05/01/20 01/21/21 ammonium lactate 12 % lotion 1 appl TOPICAL BID 12/16/20 01/21/21 ergocalciferol (vitamin D2) 25,000 50,000 unit PO MO 12/16/20 01/21/21 unit capsule thiamine HCl (vitamin B1) 100 mg 100 mg PO DAILY 12/16/20 01/21/21 tablet acetaminophen 325 mg tablet 650 mg PO Q6H PRN 01/21/21 01/21/21 nystatin 100,000 unit/gram topical 1 appl TOPICAL BID 01/21/21 01/21/21 cream Previous Rx's Medication Instructions Recorded commode (bedside commode) #1 ea 12/20/20 walker #1 ea 12/20/20 aspirin 81 mg tablet,delayed 81 mg PO DAILY #30 tab 12/22/20 release gabapentin 300 mg capsule 300 mg PO TID #90 cap 12/22/20 modafinil 100 mg tablet 100 mg PO BID #60 tab 12/22/20 theophylline 400 mg 400 mg PO DAILY #30 tab 12/22/20 tablet,extended release 24 hr umeclidinium 62.5 mcg-vilanterol 1 inh INHALATION DAILY #60 ea 12/22/20 25 mcg/actuation powdr for inhalation (Anoro Ellipta) cefuroxime axetil 500 mg tablet 500 mg PO BID #14 tab 01/24/21 doxycycline monohydrate 100 mg 100 mg PO BID #14 cap 01/24/21 capsule oxycodone 20 mg tablet 20 mg PO Q4H PRN 10 Days #60 tab 03/05/21 warfarin 5 mg tablet 10 mg PO DAILY 90 Days #180 tab 03/05/21 diltiazem HCl 180 mg 180 mg PO DAILY #30 cap 03/07/21 capsule,extended release 24 hr furosemide 40 mg tablet 40 mg PO DAILY 90 Days #90 tab 03/07/21 pantoprazole 40 mg tablet,delayed 40 mg PO DAILY #30 tab 03/07/21 release Allergies Allergy/AdvReac Type Severity Reaction Status Date / Time morphine [MORPHINE] Allergy Unknown ANAPHALAXIS, Verified 03/05/21 14:22 anaphylaxis Review of Systems Review of Systems: Constitutional: No Fever, No Chills ENT/Mouth: No Ear Pain, No Hoarseness, No sore throat Eyes: No Eye Pain, No Swelling, No Redness, No Foreign Body Cardiovascular: No Chest Pain, No SOB Respiratory: No Cough, No Dyspnea Gastrointestinal: No Nausea, No Vomiting, No Diarrhea, No abdominal Pain Genitourinary: No Dysuria, No Hematuria Musculoskeletal: positive right knee pain, No Myalgias, No Joint Swelling Skin: No Skin lacerations, No rash Neuro: No Weakness, No Numbness, No Paresthesias, No Loss of Consciousness, No Dizziness, No Headache Psych: No Anxiety/Panic, No Depression Heme/Lymph: no easy bruising, no Lymphadenopathy Endocrine: No Polyuria, No Polydipsia [facility] Past Medical History Attestation statement: The following information was validated with the patient. Source: old records reviewed Medical History Acute on chronic respiratory failure with hypoxia and hypercapnia Acute on chronic right heart failure Adopted Chronic hypercapnic respiratory failure Closed tibia fracture Dyspnea Femur fracture, right Hypoventilation associated with obesity Immobility Morbid obesity due to excess calories Nonrheumatic mitral (valve) stenosis Opioid use disorder ALEKSEY treated with BiPAP Paroxysmal atrial fibrillation Pickwickian syndrome Wound of left lower extremity Surgical History Recent surgical procedure on lower extremity Status post open reduction and internal fixation (ORIF) of fracture Social History Social History Household Members: Spouse Housing: House Do you presently have visiting nurse or other home services: No Alcohol intake: unknown Patient Tobacco Use Status: Former Tobacco user Quit Date: 2019 Years Smoked: 25 Second Hand Smoke Exposure: No Use of substances other than those prescribed or required for medical reasons: No Advance Directives: No Advance Directives Date on File: 12/16/20 service: Yes Current occupational status: disabled Physical Exam Vital Signs: Vital Signs: Last Vital Signs Temp 97.3 F 03/16/21 00:00 Pulse 77 03/16/21 00:00 Resp 15 03/16/21 00:00 BP 165/75 H 03/16/21 00:00 Pulse Ox 99 03/16/21 00:00 Body Mass Index 45.3 Appearance: Alert. Oriented X3. Moderate distress. Eyes: Pupils equal, round and reactive to light. ENT: Pharynx normal. Neck: Normal inspection. Neck supple. CVS: Normal heart rate and rhythm. Pulses normal. Respiratory: No respiratory distress. Breath sounds normal. Abdomen: Soft and nontender. Skin: Skin warm and dry. Normal skin color. Normal skin turgor. Extremities: Right knee pain on minimal palpation, no appreciable swelling bruising erythema or abrasions noted. decreased range of motion, seroma to left calf with surgical marker from wound care. Neuro: No motor deficit. No sensory deficit. Cranial nerves 2-12 intact. Course Course Course Narrative: 61-year-old female presents with right knee pain after bumping into her bed. Will order x-rays and give pain management. X-rays indicate chronic findings. Plan of care is to discharge home. Patient verbalized understanding of and agrees to plan of care. MDM - Extremity Injury (Lower) Differential Diagnosis Differential diagnosis: Likely acute internal derangement of knee Medical Records Attestation: I reviewed the patient's medical records. Lab Data Attestation: I reviewed the patient's lab results. Imaging Data Right knee x-ray: Attestation: I personally reviewed and interpreted this imaging study as follows: Radiologist's impression: EXAMINATION: XR KNEE, RIGHT? CLINICAL INFORMATION: Pain? COMPARISON: 01/21/2021? TECHNIQUE: Four views of the right knee. FINDINGS: There is plate and screw fixation hardware along the distal femur. Fragmented appearance of the colon with laterally positioned and again noted. Medial compartment joint space narrowing at the knee with osteophyte formation. Cannot evaluate for joint effusion within images. Soft tissue swelling.? XR/XR knee RT 2V IMPRESSION: Fixation hardware at the distal femur with fragmented appearance of the femur. Adjacent cement. Alignment at the knee maintained with medial compartment narrowing and osteophytes. ? ECG Data Attestation: I personally reviewed and interpreted this ECG as follows: Discharge Plan Discharge Clinical Impression: Chronic knee pain Qualifiers: Laterality: right Qualified Code(s): M25.561 - Pain in right knee Patient Disposition: Home, Self-Care Instructions: Chronic Pain (ED), Knee Pain (ED) Additional Instructions: You were evaluated for right knee pain. X-ray showed chronic findings. Please continue to follow-up with your primary care provider for pain management. Please follow-up with wound clinic as scheduled. Thank you for choosing this emergency department for evaluation. Please follow-up with primary care physician as needed. Return to the emergency department for any new, concerning, or worsening symptoms. Prescriptions: No Action pantoprazole 40 mg tablet,delayed release (DR/EC) 40 mg PO DAILY Qty: 30 RF: 0 furosemide 40 mg tablet 40 mg PO DAILY 90 Days Qty: 90 RF: 1 diltiazem HCl 180 mg capsule,extended release 24hr 180 mg PO DAILY Qty: 30 RF: 0 acetaminophen 325 mg Tablet 650 mg PO Q6H PRN (Reason: Pain) RF: 0 nystatin 100,000 unit/gram Cream 1 appl TOPICAL BID RF: 0 doxycycline monohydrate 100 mg capsule 100 mg PO BID Qty: 14 RF: 0 cefuroxime axetil 500 mg tablet 500 mg PO BID Qty: 14 RF: 0 thiamine HCl (vitamin B1) 100 mg Tablet 100 mg PO DAILY RF: 0 ergocalciferol (vitamin D2) 25,000 unit Capsule 50,000 unit PO MO RF: 0 ammonium lactate 12 % Lotion 1 appl TOPICAL BID RF: 0 (DME) bedside commode Kit See Rx Instructions .ROUTE .MEDSUPPLY Qty: 1 RF: 0 (DME) walker Misc See Rx Instructions .ROUTE .MEDSUPPLY Qty: 1 RF: 0 theophylline 400 mg tablet extended release 24 hr 400 mg PO DAILY Qty: 30 RF: 0 aspirin 81 mg Tablet,Delayed Release (Dr/Ec) 81 mg PO DAILY Qty: 30 RF: 0 gabapentin 300 mg Capsule 300 mg PO TID Qty: 90 RF: 0 modafinil 100 mg tablet 100 mg PO BID Qty: 60 RF: 0 Anoro Ellipta 62.5-25 mcg/actuation blister with device 1 inh inhalation DAILY Qty: 60 RF: 0 warfarin 5 mg tablet 10 mg PO DAILY 90 Days Qty: 180 RF: 3 oxycodone 20 mg tablet 20 mg PO Q4H PRN (Reason: Pain, Severe (Pain Scale 7-10)) 10 Days Qty: 60 RF: 0 clonazepam 0.5 mg tablet 0.5 mg PO DAILY RF: 0 Referrals: [facility] [Outside] - 2 days
[2021-03-15] MEDS: oxyCODONE HCl Immed Release 15 MG TABLET 30 MG PO (23:04)
[2021-03-15 23:05] VITALS: RESP 15
[2021-03-15] MEDS: HYDROmorphone HCl 1 MG/ML SYRINGE IVPUSH (23:05)
[2021-03-16] VITALS: BP 165/75; PULSE 77; RESP 15; TEMP 36.3; O2SAT 99
[2021-03-16] MEDS: Acetaminophen 325 MG TABLET 650 MG PO (01:40)
== END 2021-03-16 03:00 | disposition home or self-care (01) ==
PROVIDERS: Emergency Provider Emergency Medicine
DX: G89.29 Other chronic pain (principal); M25.561 Pain in right knee; I48.0 Paroxysmal atrial fibrillation; Z79.891 Long term (current) use of opiate analgesic; Z79.01 Long term (current) use of anticoagulants; Z79.899 Other long term (current) drug therapy
CPT/HCPCS: 73560; 96374; 99284; J1170

== ENCOUNTER 2021-03-25 00:05 | Emergency (ER) | payer MEDICARE, MEDICAID, SELFPAY ==
[2021-03-25 00:13] VITALS: BP 176/80; BP 202/83; PULSE 86; PULSE 90; RESP 20; TEMP 36.8; O2SAT 96; O2SAT 99; BMI 43.9
--- NOTE | 2021-03-25 00:22 | PC.NURSE ---
pt has a old leg wound on her left out leg that is being cared for and has packing with calcium algenate.
[2021-03-25 00:26] VITALS: BP 206/94
[2021-03-25] MEDS: oxyCODONE HCl Immed Release 5 MG TABLET 10 MG PO (01:23)
--- NOTE | 2021-03-25 01:25 | PC.NURSE ---
pt medicated for pain. pt has anxiety over her pain issue to the leg. pt instructed that the leg will be wrapped when the pain medication has taken controll.
[2021-03-25 02:00] VITALS: BP 190/84; PULSE 71; RESP 20; O2SAT 95
--- NOTE | 2021-03-25 02:05 | PC.NURSE ---
pt left leg wrapped per dr prado. pt tolerated but is still feeling anxiouse. swelling to the left leg as stayed the same
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
[2021-03-25 02:16] VITALS: BP 168/68; PULSE 68; RESP 20; O2SAT 96
[2021-03-25 03:14] VITALS: RESP 20
[2021-03-25 03:48] VITALS: PULSE 79; O2SAT 95
--- NOTE | 2021-03-25 03:58 | PC.NURSE ---
pt is refusing the 5mg dose of her pain medication oxycodone im release due to she states it will not be enough for her. dr prado made aware pt would like to talk with her.
[2021-03-25] MEDS: oxyCODONE HCl Immed Release 5 MG TABLET PO ×2 (04:10→04:25)
--- NOTE | 2021-03-25 04:12 | PC.NURSE ---
dr prado at the bedside to address pt pain status. ems present for her ride home.
--- NOTE | 2021-03-25 04:27 | PC.NURSE ---
pt was refusing to be discharged untill she talked with the doctor for additional pain medication. pt was anxiouse increase rr rate till po oxycodone im release received and in the next min pt was no longer showing signs of pain, anxiety or elevated rr. ems is present to bring the pt home to her spouse.
== END 2021-03-25 04:34 | disposition home or self-care (01) ==
PROVIDERS: Emergency Provider Student in an Organized Health Care Education/Training Program
DX: T79.2XXD Traumatic secondary and recurrent hemorrhage and seroma, subsequent encounter (principal); V49.40XD Driver injured in collision with unspecified motor vehicles in traffic accident, subsequent encounter; G89.11 Acute pain due to trauma; M79.662 Pain in left lower leg; M86.9 Osteomyelitis, unspecified
CPT/HCPCS: 99283; 99284

== ENCOUNTER → 2021-04-02 09:59 | Outpatient (BNVA) | payer MEDICARE, MEDICAID, SELFPAY | PROVIDERS: PCP Family Medicine; Visit Provider Nurse Practitioner Family | DX: M25.561 Pain in right knee (principal); F11.90 Opioid use, unspecified, uncomplicated; L08.9 Local infection of the skin and subcutaneous tissue, unspecified; S72.91 Unspecified fracture of right femur; T14.8XXD Other injury of unspecified body region, subsequent encounter | CPT/HCPCS: 99202 ==

== ENCOUNTER 2021-04-09 16:14 | Emergency (ER) | payer MEDICARE, MEDICAID, SELFPAY ==
[2021-04-09 16:49] VITALS: BP 179/67; PULSE 67; RESP 19; TEMP 36.8; O2SAT 100; BMI 45.3
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
[2021-04-09 18:45] LABS: OBS Int Ctl Valid YES; OBS1 NEGATIVE (NEGATIVE)
[2021-04-09 18:55] VITALS: BP 178/54; PULSE 70; RESP 20; TEMP 36.8; O2SAT 100
[2021-04-09] MEDS: oxyCODONE HCl Immed Release 15 MG TABLET PO (19:03)
[2021-04-09 19:06] LABS: Anion Gap 14 (12-20); Blood Urea Nitrogen 13 mg/dL (9-16); Calcium 9.1 mg/dL (8.4-10.2); Carbon Dioxide 34 mmol/L (22-29); Chloride 97 mmol/L (96-108); Creatinine Clr Calc Pharmacy 81.2; Estimated Glomerular Filt Rate > 60; Glucose Random 112 mg/dL (60-115); Potassium 4.3 mmol/L (3.3-5.1); Sodium 141 mmol/L (135-145)
[2021-04-09 19:06] LABS: Alanine Aminotransferase 6 U/L (0-31); Albumin Level 3.7 g/dL (3.5-5.0); Alkaline Phosphatase 100 U/L (39-117); Aspartate Amino Transferase 14 U/L (5-31); Bilirubin Direct < 0.2 mg/dL (0.0-0.5); Bilirubin Total 0.4 mg/dL (0.0-1.0)
--- NOTE | 2021-04-09 19:13 | PHA.MEDREC ---
Pharmacy Consult ? Medication Reconciliation Pharmacy has completed the medication reconciliation. Patient report being on Buprenorphine 5mch/hr patch, verified with PDMP. Patient was previously taking Warfarin 10mg daily prior to her procedure. Has not taken it for about 2 weeks but reports even with 10mg INR was typically low. Reports Vanco 1000mg Q12H was infused at 0900 and 2100 every day. Swathi Rucker
[2021-04-09 19:31] LABS: COVID-19 Test Negative (Negative); IDNOW Serial# 9DD0AD1C
[2021-04-09 19:38] LABS: Basophils Percent Auto 0.5 % (0-2); Eosinophils Absolute Auto 0.5 X10*3/uL (0.0-0.4); Eosinophils Percent Auto 5.8 % (0-4); Hematocrit 29.2 % (37-47); Hemoglobin 9.1 g/dl (12.0-16.0); Imm Gran Abs Auto 0.03 X10*3/uL (0.00-0.03); Imm Gran Pct Auto 0.3 % (0.0-0.4); Lymphocytes Absolute Auto 1.2 X10*3/uL (1.2-4.9); Lymphocytes Percent Auto 13.4 % (20-40); Mean Corpuscular HGB Conc 31.2 g/dl (31.0-35.0); Mean Corpuscular Hemoglobin 25.8 pg (27.0-33.0); Mean Corpuscular Volume 82.7 fL (80-98); Mean Platelet Volume 9.6 fL (9.4-12.3); Monocytes Absolute Auto 0.7 X10*3/uL (0.1-1.2); Monocytes Percent Auto 8.4 % (2-11); Neutrophils Absolute Auto 6.3 X10*3/uL (2.0-8.3); Neutrophils Percent Auto 71.6 % (45-73); Platelet Count 204 X10*3/uL (160-400); Red Blood Count 3.53 X10*6/uL (4.20-5.50); Red Cell Distribution Width 15.2 % (11.0-16.0); White Blood Count 8.9 X10*3/uL (4.8-10.8)
[2021-04-09 19:39] LABS: MANUAL DIFF FLAG NO
[2021-04-09 19:44] LABS: Prothrombin Time 11.7 SEC (9.9-13.0)
[2021-04-09 19:58] VITALS: BP 159/67; PULSE 70; RESP 15; O2SAT 97
== END 2021-04-09 20:49 | disposition home or self-care (01) ==
PROVIDERS: Nurse Practitioner Family; Emergency Provider Emergency Medicine Emergency Medical Services
DX: D64.9 Anemia, unspecified (principal); Z20.822 Contact with and (suspected) exposure to COVID-19; Z79.899 Other long term (current) drug therapy
CPT/HCPCS: 36415; 80048; 80076; 82272; 85025; 85610; 86850; 86900; 86901; 87635; 99283; 99284

== ENCOUNTER 2021-07-15 10:00 | Outpatient (RCR) | payer MEDICARE, MEDICAID, SELFPAY ==
[2021-06-09 07:12] VITALS: BP 172/72; PULSE 62; O2SAT 100
== END 2021-08-21 12:21 | disposition home or self-care (01) ==
LOC: HO.PT 10:00
PROVIDERS: PCP Physician Assistant; Visit Provider Orthopaedic Surgery
DX: S72.451D Displaced supracondylar fracture without intracondylar extension of lower end of right femur, subsequent encounter for closed fracture with routine healing (principal)
CPT/HCPCS: 97110; 97112; 97163; 97530

== ENCOUNTER 2022-02-19 12:44 | Inpatient (IN) | payer MEDICARE, MEDICAID, SELFPAY ==
--- NOTE | ~2022-02-19 | XR_ITS ---
EXAMINATION: XR KNEE, RIGHT CLINICAL INFORMATION: Rule out drainable collection COMPARISON: Right knee radiographs 01/13/2021 TECHNIQUE: Four views of the right knee. FINDINGS: Status post lateral plate and screw as well as intramedullary nail fixation of a comminuted ununited appearing fracture the distal femur. Alignment is similar to prior. The previously seen cement material has largely been resorbed. No acute fracture or dislocation. No knee joint effusion is seen. Moderate to severe medial compartment joint space narrowing with subchondral sclerosis and tricompartmental osteophyte formation compatible with osteoarthritis is noted. No aggressive osseous destructive change or periostitis identified. XR/XR knee RT 4V IMPRESSION: 1. Status post ORIF of an ununited appearing distal femur fracture. The visualized fixation is intact. 2. No new fracture, osseous destructive change, or joint effusion.
--- NOTE | ~2022-02-19 | CT_ITS ---
EXAMINATION: CT KNEE WITHOUT CONTRAST, RIGHT CLINICAL INFORMATION: Cellulitis. Question abscess. COMPARISON: Right knee radiographs 02/11/2022 TECHNIQUE: Axial images were obtained through the right knee without the administration of intravenous contrast. Coronal and sagittal reformatted images were generated. This CT examination was performed using dose optimization techniques as appropriate, variously including the following: *Automated exposure control *Adjustment of mA and/or kV according to patient size (this includes techniques or standardized protocols for targeted exams where dose is matched to indication/reason for exam; i.e. extremities or head) *Use of iterative reconstruction technique DLP: 216 mGy-cm FINDINGS: Status post lateral plate and intramedullary nail fixation of a comminuted ununited fracture of the distal femoral diaphysis. Fixation is intact. No significant lucency surrounding the fixation screws. There does appear to be a small loculated collection of subcutaneous fluid extending distally in the subcutaneous fat along the lateral/anterolateral aspect of the knee measuring approximately 1.3 x 0.5 x 2 cm in size (please see rojas images). No gas within this collection. The collection appears to extend toward the skin surface both laterally at the knee and anterolaterally in the proximal lower leg. No other fluid collections are identified. No knee joint effusion. Faint residual cement material lateral to the distal femur fracture in the soft tissues noted. No popliteal cyst. Tricompartmental knee joint osteoarthritis most severe at the medial compartment noted. Subcutaneous edema. CT/CT knee RT wo con IMPRESSION: 1. Status post ORIF of a currently ununited distal femoral fracture. The visualized fixation is intact. 2. Small 1.3 x 0.5 x 2 cm low-density subcutaneous fluid collection lateral to the knee that appears to extend toward the skin surface, to represent a sterile or infected the collection. Correlate clinically with evidence of a draining wound at the lateral anterolateral knee/proximal calf. 3. No knee joint effusion.
[2022-02-19 13:45] VITALS: BP 190/80; PULSE 65; RESP 18; TEMP 36.7; O2SAT 100; BMI 42.0
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
[2022-02-19 15:24] LABS: MANUAL DIFF FLAG NO
[2022-02-19] MEDS: oxyCODONE HCl Immed Release 15 MG TABLET PO (15:24)
[2022-02-19 15:26] LABS: Basophils Percent Auto 0.2 % (0-2); Eosinophils Absolute Auto 0.3 X10*3/uL (0.0-0.4); Eosinophils Percent Auto 2.6 % (0-4); Hematocrit 32.5 % (37.0-47.0); Hemoglobin 9.6 g/dl (12.0-16.0); Imm Gran Abs Auto 0.03 X10*3/uL (0.00-0.03); Imm Gran Pct Auto 0.3 % (0.0-0.4); Lymphocytes Absolute Auto 1.2 X10*3/uL (1.2-4.9); Lymphocytes Percent Auto 9.9 % (20-40); Mean Corpuscular HGB Conc 29.5 g/dl (31.0-35.0); Mean Corpuscular Hemoglobin 23.2 pg (27.0-33.0); Mean Corpuscular Volume 78.5 fL (80.0-98.0); Mean Platelet Volume 10.4 fL (9.4-12.3); Monocytes Absolute Auto 0.7 X10*3/uL (0.1-1.2); Monocytes Percent Auto 5.8 % (2-11); Neutrophils Absolute Auto 9.5 x10*3/uL (2.0-8.3); Neutrophils Percent Auto 81.2 % (45-73); Platelet Count 289 X10*3/uL (160-400); Red Blood Count 4.14 X10*6/uL (4.20-5.50); Red Cell Distribution Width 14.6 % (11.0-16.0); White Blood Count 11.7 X10*3/uL (4.8-10.8)
[2022-02-19 15:31] LABS: Prothrombin Time 11.5 SEC (10.0-13.1)
[2022-02-19] MEDS: Piperacillin Sodium/Tazobactam 4.5 GM in 0.9 % Sodium Chloride 100 ML IV ×2 (15:35→20:59)
[2022-02-19 15:39] LABS: Lactic Acid 0.7 mmol/L (0.5-2.0)
[2022-02-19 15:44] LABS: Alanine Aminotransferase < 6 U/L (0-31); Albumin Level 3.9 g/dL (3.5-5.0); Alkaline Phosphatase 110 U/L (39-117); Anion Gap 11 (12-20); Aspartate Amino Transferase 8 U/L (5-31); Bilirubin Direct < 0.2 mg/dL (0.0-0.5); Bilirubin Total < 0.2 mg/dL (0.0-1.0); Blood Urea Nitrogen 17 mg/dL (9-16); C Reactive Protein 3.95 mg/dL (< or = 0.50); Calcium 8.8 mg/dL (8.4-10.2); Carbon Dioxide 38 mmol/L (22-29); Chloride 95 mmol/L (96-108); Creatinine Clr Calc Pharmacy 95.6; Estimated Glomerular Filt Rate > 60; Glucose Random 119 mg/dL (60-115); Potassium 4.2 mmol/L (3.3-5.1); Sodium 140 mmol/L (135-145)
[2022-02-19 15:48] LABS: COVID-19 Test Negative (Negative)
[2022-02-19 15:49] LABS: B Type Natriuretic Peptide 55 pg/mL (<100)
[2022-02-19 16:01] LABS: Erythrocyte Sedimentation Rate 48 MM/HR (0-20)
--- NOTE | 2022-02-19 16:55 | PHA.PROG ---
Admission Date/Time: Indication: other? Weight in k.326 kg Adjusted body weight in K.79 Oliver body weight in Kg: Obesity Dosing Indication % IBW: Serum Creatinine - Last 168 Hours 02/19/22 15:13 Creatinine 0.70 Estimated CrCl and GFR - Last 168 Hours 02/19/22 15:13 Estim Creat Clear Calc 95.6 Estimated GFR > 60 Vancomycin Loading Dose: 2000 mg Current Vancomycin Dosing Regimen: 1000mg q12h Vancomycin Monitoring using AUC goal of 400 - 600 range with trough as surrogate marker: auc 553, trough 16.5 Date and Time for next Vancomycin Level to be drawn: random 02/20 @1400 Pharmacist Comments on Vancomycin Plan: used obese model will get random after two since proper trough would not be analyzed by inhouse pharmacy Vancomycin dosing will take advantage of [employer]eko as a clinical decision support tool that uses Bayesian modeling to calculate individual patient's pharmacokinetic parameters and forecast the patient's drug concentration time course with the target goal AUC 24 range of 400 - 600 mg/L/hr.
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
--- NOTE | 2022-02-19 18:11 | PHA.MEDREC ---
Pharmacy Consult ? Medication Reconciliation Pharmacy has completed the medication reconciliation. Patient reports taking oxycodone 30 mg Q4H however per PDMP her most recent fill is for oxycodone 15 mg with 5 tablets per day. Patient reports she is taking lisinopril and meloxicam but they were last filled in November 2021. Swathi Rucker, RamaD
--- NOTE | 2022-02-19 19:05 | PC.NURSE ---
Assumed care of this pt. at 1900 - report from Rosalinda Aguayo RN
[2022-02-19 19:19] VITALS: BP 179/73; PULSE 64; RESP 14; O2SAT 97
[2022-02-19] MEDS: oxyCODONE HCl Immed Release 15 MG TABLET 30 MG PO (19:23)
--- NOTE | 2022-02-19 19:36 | PC.NURSE ---
Pt A+Ox3, requesting to stay seated in WC, Oxy given for RLeg pain, Vanco runing, IV stable, callm light in reach.m this RN continues to monitor.
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
[2022-02-19 23:11] VITALS: BP 183/74; PULSE 67; RESP 16; O2SAT 95
[2022-02-19] MEDS: NaPROXEN 250 MG TABLET PO (23:27)
[2022-02-19] MEDS: HYDROmorphone HCl 2 MG TABLET PO (23:27)
[2022-02-19 23:28] VITALS: BP 162/80
[2022-02-19] MEDS: 0.9 % Sodium Chloride Flush 3 ML SYRINGE IVFLUSH (23:28)
[2022-02-20] MEDS: clonazePAM 0.5 MG TABLET 0.25 MG PO (01:38)
[2022-02-20] MEDS: oxyCODONE HCl Immed Release 15 MG TABLET 30 MG PO ×4 (01:39→18:13)
[2022-02-20] MEDS: Piperacillin Sodium/Tazobactam 4.5 GM in 0.9 % Sodium Chloride 100 ML IV ×3 (04:53→16:16)
[2022-02-20] MEDS: vancomycin HCL 1,000 MG in 0.9 % Sodium Chloride 250 ML 270 MG IV (05:34)
[2022-02-20 06:42] LABS: MANUAL DIFF FLAG NO
[2022-02-20 06:48] LABS: Basophils Percent Auto 0.4 % (0-2); Eosinophils Absolute Auto 0.3 X10*3/uL (0.0-0.4); Eosinophils Percent Auto 4.2 % (0-4); Hematocrit 27.7 % (37.0-47.0); Imm Gran Abs Auto 0.02 X10*3/uL (0.00-0.03); Imm Gran Pct Auto 0.3 % (0.0-0.4); Lymphocytes Absolute Auto 0.8 X10*3/uL (1.2-4.9); Lymphocytes Percent Auto 9.6 % (20-40); Mean Corpuscular HGB Conc 28.9 g/dl (31.0-35.0); Mean Corpuscular Hemoglobin 23.3 pg (27.0-33.0); Mean Corpuscular Volume 80.8 fL (80.0-98.0); Mean Platelet Volume 10.2 fL (9.4-12.3); Monocytes Absolute Auto 0.5 X10*3/uL (0.1-1.2); Monocytes Percent Auto 6.7 % (2-11); Neutrophils Absolute Auto 6.2 x10*3/uL (2.0-8.3); Neutrophils Percent Auto 78.8 % (45-73); Platelet Count 234 X10*3/uL (160-400); Red Blood Count 3.43 X10*6/uL (4.20-5.50); Red Cell Distribution Width 14.5 % (11.0-16.0); White Blood Count 7.9 X10*3/uL (4.8-10.8)
[2022-02-20 07:22] LABS: Alanine Aminotransferase < 6 U/L (0-31); Albumin Level 2.9 g/dL (3.5-5.0); Alkaline Phosphatase 88 U/L (39-117); Anion Gap 13 (12-20); Aspartate Amino Transferase 5 U/L (5-31); Bilirubin Total < 0.2 mg/dL (0.0-1.0); Blood Urea Nitrogen 17 mg/dL (9-16); Calcium 8.1 mg/dL (8.4-10.2); Carbon Dioxide 35 mmol/L (22-29); Chloride 99 mmol/L (96-108); Creatinine Clr Calc Pharmacy 90.4; Estimated Glomerular Filt Rate > 60; Glucose Fasting 125 mg/dL (60-99); Potassium 3.9 mmol/L (3.3-5.1); Sodium 143 mmol/L (135-145); Total Protein 5.4 g/dL (6.5-8.0)
[2022-02-20] MEDS: Enoxaparin Sodium 40 MG/0.4 ML SYRINGE SUBCUT (09:16)
[2022-02-20] MEDS: lisinopriL 20 MG TABLET PO (09:16)
[2022-02-20] MEDS: dilTIAZem HCL CD 180 MG CAP.ER.24H PO (09:16)
[2022-02-20] MEDS: Theophylline Anhydrous ER 400 MG TAB.ER.24H PO (09:16)
[2022-02-20] MEDS: clonazePAM 0.5 MG TABLET PO (09:16)
--- NOTE | 2022-02-20 09:34 | PC.NURSE ---
report given to rn
[2022-02-20 10:05] VITALS: BP 147/64; PULSE 66; RESP 16; TEMP 36.4; O2SAT 100
[2022-02-20 11:14] VITALS: BMI 44.8
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
[2022-02-20 15:17] LABS: Vancomycin Random 19.1 mcg/mL (15-20)
--- NOTE | 2022-02-20 15:22 | HO.MIDLINE ---
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 Using ultrasound guidance, CEPHALIC vein access was obtained IN SINGLE ATTEMPT BY THIS RN; UNSUCCESSFUL ATTEMPT BY RN JANINA Muhammad PRIOR TO, SO TOTAL x2 ATTEMPTS AT MIDLINE. A SINGLE LUMEN, NON-PASV, (20G X 10CM) MIDLINE was positioned. The procedure was performed in [facility]. Ultrasound was used to document vein patency and for needle entry. A formal ultrasound picture was recorded. Vascular Margin Trimmer has released the line for use and it is currently dressed with a StatLock, Tegaderm, and CHG disc. Verification has been performed for blood return and line patency. Arm Circumference: 47 CM Equipment: [employer] POWERGLIDE PRO Catheter Type: SINGLE LUMEN, NONPASV, 20G X 10CM Lot #: [id number]
--- NOTE | 2022-02-20 15:25 | MHC.CM.PN ---
Addendum entered by Katie Devries 02/20/22 16:22: STEFANIA SPOKE TO PRABHU [phone] AT [facility] WHO CONFIRMS THEY WILL DELIVER MEDS/SUPPLIES THIS EVENING Original Note: PT CLEARED TO DC HOME TODAY, SHE WILL NEED 7 DAYS OF IV VANCO AND ZOSYN. 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
--- NOTE | 2022-02-20 15:36 | HE.PHANOTE ---
Vancomycin Dosing Addendum Random level of 19.1 mg/L, 02/20/22 @1348. Patients indication is cellulitis, trough is on higher side of the scale. Given the indication, a dose reduction was done. Dose is now 750mg Q12h. [id number] was kept the same as patients Scr is 0.74 today, patient is obese and patient is below 65 yrs old. Random level to be drawn 02/21/22 @1600.
[2022-02-20 16:00] VITALS: BP 149/83; PULSE 67; RESP 17; TEMP 36.8; O2SAT 95
[2022-02-20] MEDS: 0.9 % Sodium Chloride Flush 3 ML SYRINGE IVFLUSH (18:14)
[2022-02-20] MEDS: vancomycin HCL 750 MG in 0.9 % Sodium Chloride 250 ML 265 MG IV (19:08)
--- NOTE | 2022-02-20 22:29 | PC.NURSE ---
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
== END 2022-02-20 22:00 | disposition home health service (06) | DRG 920 ==
LOC: HO.ED 16:43 → HO.EDOVER 17:14 → HO.S3 02-20 07:20
PROVIDERS: Physician Assistant; Admitting Provider Hospitalist; Emergency Provider Internal Medicine; Visit Provider Hospitalist
DX: T86.822 Skin graft (allograft) (autograft) infection (principal); E66.2 Morbid (severe) obesity with alveolar hypoventilation; L03.115 Cellulitis of right lower limb; J96.12 Chronic respiratory failure with hypercapnia; F11.20 Opioid dependence, uncomplicated; Y81.8 Miscellaneous general- and plastic-surgery devices associated with adverse incidents, not elsewhere classified; I48.0 Paroxysmal atrial fibrillation; J44.9 Chronic obstructive pulmonary disease, unspecified; Z20.822 Contact with and (suspected) exposure to COVID-19; Z99.81 Dependence on supplemental oxygen; Z88.5 Allergy status to narcotic agent; Z79.899 Other long term (current) drug therapy
CPT/HCPCS: 36410; 36415; 73564; 73700; 80048; 80053; 80076; 80202; 83605; 83735; 83880; 85025; 85610; 85652; 86140; 87040; 87635; 96365; 96367; 99285; J1650; J2543; J3370

== ENCOUNTER 2022-05-03 16:24 | Inpatient (IN) | payer MEDICARE, MEDICAID, SELFPAY ==
[2022-05-03] VITALS (8 sets, daily range): BP systolic 125–158; BP diastolic 62–88; PULSE 58–96; RESP 16–33; TEMP 36.7–36.9; O2SAT 95–954; BMI 42.0
--- NOTE | 2022-05-03 16:42 | ECG_ITS ---
Test Reason : SOB Blood Pressure : / mmHG Vent. Rate : 091 BPM Atrial Rate : 091 BPM P-R Int : 154 ms QRS Dur : 086 ms QT Int : 366 ms P-R-T Axes : 070 057 058 degrees QTc Int : 450 ms Normal sinus rhythm RSR' or QR pattern in V1 suggests right ventricular conduction delay Intra-ventricular conduction delay Otherwise normal ECG When compared with ECG of 24-DEC-2020 17:29, Heart rate has increased Referred By: Deepak Garcia Electronically Signed By:DARIO CHAIDEZ MD
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
--- OUTSIDE RECORDS SUMMARY | 2022-05-03 16:54 | XMS_ITS | Continuity of Care Document ---
:1960 Demographics Address [address] [place] [address]
--- NOTE | 2022-05-03 16:55 | PC.NURSE ---
Pt V/S are normal, pt is on the telemetry and it shows NSR. Pt had ankle enema +1, swollen and peeled legs with discoloration. + peripheral pulses, and lungs sound are normal bilaterally thorough out. Pt apical pulse was 58 / min. Pt asked for pain meds and it will be administered once the provider has the order. Techs are working on the labs, and EKG is within the normal limit. Pt was change into a gown and is sitting position. Pt seems having difficulty with breathing and her breathing seems a if she is utilizing the diaphragm muscle. Will continue to monitor.
--- OUTSIDE RECORDS SUMMARY | 2022-05-03 16:55 | XMS_ITS | Continuity of Care Document ---
:1960 Demographics Address [address] [place] [id number] Mobile Email Address Preferred Language so Marital Status
--- OUTSIDE RECORDS SUMMARY | 2022-05-03 16:55 | XMS_ITS | Continuity of Care Document ---
:1960 Demographics Address [address] [place] [address] Mobile Preferred Language Nigerian Marital Status Nondenominational Affiliation None Race Unknown Ethnic Group Not or
--- OUTSIDE RECORDS SUMMARY | 2022-05-03 16:56 | XMS_ITS | Continuity of Care Document ---
:1960 Demographics Address [address] [place] [address] Mobile Preferred Language so Marital Status Scientologist Affiliation None Race White Ethnic Group Not or
--- OUTSIDE RECORDS SUMMARY | 2022-05-03 16:56 | XMS_ITS | Continuity of Care Document ---
:1960 Demographics Address [address]
--- OUTSIDE RECORDS SUMMARY | 2022-05-03 16:56 | XMS_ITS | Continuity of Care Document ---
:1960 Author Organization [facility] Address [address] [place] [address]- Care Team Providers Name Role Phone Tima ORDAZ, Annemarie Slater Primary Care Physician Encounter [facility] [place] Date(s): 03/21/21 - 04/23/[address] [address] Attending Physician: Chandrika Conn MD Admitting Physician: Chandrika Conn MD Referring Physician: Chandrika Conn MD Allergies, Adverse Reactions, Alerts Substance Reaction Severity Status morphine anaphylaxis Severe Active propofol Active gabapentin Active Immunizations Given and Recorded
[2022-05-03] MEDS: 0.9 % Sodium Chloride 1,000 ML 999 ML IV (17:10)
[2022-05-03] MEDS: HYDROmorphone HCl 1 MG/ML SYRINGE 2 MG IVPUSH (17:10)
--- NOTE | 2022-05-03 17:18 | PC.NURSE ---
PT IVF is running and 2 mg of diludid was administered. Labs were sent by the tech. Will continue to monitor.
[2022-05-03 17:41] LABS: Hemoglobin 9.3 g/dl (12.0-16.0); PLT CLUMP 1; Red Cell Distribution Width 15.4 % (11.0-16.0); SCAN SMEAR FLAG 1
[2022-05-03 17:42] LABS: Basophils Absolute Auto 0.1 X10*3/uL (0.0-0.2); Basophils Percent Auto 0.5 % (0-2); Eosinophils Absolute Auto 0.3 X10*3/uL (0.0-0.4); Eosinophils Percent Auto 2.4 % (0-4); Hematocrit 32.2 % (37.0-47.0); Imm Gran Abs Auto 0.03 X10*3/uL (0.00-0.03); Imm Gran Pct Auto 0.2 % (0.0-0.4); Lymphocytes Absolute Auto 0.7 X10*3/uL (1.2-4.9); Lymphocytes Percent Auto 5.5 % (20-40); MANUAL DIFF FLAG SCAN; Mean Corpuscular HGB Conc 28.9 g/dl (31.0-35.0); Mean Corpuscular Hemoglobin 21.9 pg (27.0-33.0); Mean Corpuscular Volume 75.9 fL (80.0-98.0); Monocytes Absolute Auto 0.7 X10*3/uL (0.1-1.2); Monocytes Percent Auto 5.8 % (2-11); Neutrophils Absolute Auto 10.6 x10*3/uL (2.0-8.3); Neutrophils Percent Auto 85.6 % (45-73); Red Blood Count 4.24 X10*6/uL (4.20-5.50)
[2022-05-03 17:47] LABS: INTERNATIONAL NORM RATIO 1.1 (0.9-1.1); Prothrombin Time 12.2 SEC (10.0-13.1)
[2022-05-03 17:49] LABS: D Dimer High Sensitivity 464 NG/ML
[2022-05-03 17:50] LABS: Partial Thromboplastin Time 26.7 SEC (26.0-36.4)
[2022-05-03 17:51] LABS: Lactic Acid 1.2 mmol/L (0.5-2.0)
[2022-05-03 17:55] LABS: White Blood Count 12.4 X10*3/uL (4.8-10.8)
[2022-05-03 17:55] LABS: COVID-19 Test Negative (Negative); IDNOW Serial# 16C4AD1C
[2022-05-03 17:57] LABS: Alanine Aminotransferase 11 U/L (0-31); Albumin Level 3.7 g/dL (3.5-5.0); Alkaline Phosphatase 171 U/L (39-117); Anion Gap 15 (12-20); Aspartate Amino Transferase 29 U/L (5-31); Bilirubin Total 0.2 mg/dL (0.0-1.0); Blood Urea Nitrogen 20 mg/dL (9-16); Calcium 9.2 mg/dL (8.4-10.2); Carbon Dioxide 34 mmol/L (22-29); Chloride 98 mmol/L (96-108); Creatinine Clr Calc Pharmacy 88.1; Estimated Glomerular Filt Rate > 60; Glucose Random 152 mg/dL (60-115); Lipase 12 U/L (8-78); Potassium 4.3 mmol/L (3.3-5.1); Sodium 143 mmol/L (135-145); Total Protein 7.4 g/dL (6.5-8.0)
[2022-05-03 18:00] LABS: B Type Natriuretic Peptide 77 pg/mL (<100); Troponin-I High Sensitivity 38.6 ng/L (<3.5-17.0)
[2022-05-03] MEDS: HYDROmorphone HCl 2 MG/ML VIAL IVPUSH ×2 (18:00→21:01)
[2022-05-03 18:02] LABS: Platelet Count 330 X10*3/uL (160-400)
[2022-05-03 18:03] LABS: SLIDE REVIEW VERIFIED
--- NOTE | 2022-05-03 18:06 | PC.NURSE ---
Pt was administered pain med 03/04. Pt IVF are still running.
[2022-05-03] MEDS: iohexoL 350 MG/ML 100 ML INFUS..BTL IV (18:47)
[2022-05-03 20:14] LABS: Appearance Urine Clear; Color Urine Dark Yellow; Glucose Urine UA Negative (Negative); Leukocyte Esterase Urine Negative (Negative); Nitrite Urine Positive (Negative); Specific Gravity - Urine >= 1.030 (1.005-1.025); UMIC TRIGGER UACC YES; Urine Blood Negative (Negative); Urine Ketones Negative (Negative); Urine Protein 100 (2+) mg/dL (Neg-Trace)
--- NOTE | 2022-05-03 20:47 | ECG_ITS ---
Test Reason : SOB Blood Pressure : / mmHG Vent. Rate : 074 BPM Atrial Rate : 074 BPM P-R Int : 160 ms QRS Dur : 090 ms QT Int : 398 ms P-R-T Axes : 058 045 064 degrees QTc Int : 441 ms Normal sinus rhythm RSR' or QR pattern in V1 suggests right ventricular conduction delay Otherwise normal ECG When compared with ECG of 03-MAY-2022 16:51, No significant change was found Referred By: Deepak Garcia Electronically Signed By:DARIO CHAIDEZ MD
[2022-05-03 20:49] LABS: Bacteria Urine None Seen (None Seen); Hyaline Casts Urine 0-2 /LPF (0-2); RBC Urine 0-2 /HPF (0-2); Squamous Epithelial Cell Urine 0-2 /HPF (0-2); UACC Culture Trigger YES; WBC Urine 0-5 /HPF (0-5)
[2022-05-03 21:21] LABS: Troponin-I High Sensitivity 202.2 ng/L (<3.5-17.0)
--- NOTE | 2022-05-03 21:40 | PC.NURSE ---
Addendum entered by Teresa Rivera 05/03/22 21:48: Pt telemetry shows normal p-waves, QRS and ST segment. Original Note: RN went to re-assess pt and pt was experiencing chest tightness/pian 03/04. Pt troponin was 202 elevated RN notofied the provider, provider verbally order Nitriglycerin 0.4mg. Pt reports nitro relief the pain. Pt BP is within her normal limits. Pt sister is at bedside. Pt is on the BP cuff to monitor every 5 minutes CP. Pt is on the telemetry and pt has NSR. Pt was administered 2mg of Diludid by provider order. Will continue to monitor.
[2022-05-03] MEDS: LORazepam 1 MG TABLET PO (22:17)
[2022-05-03] MEDS: Aspirin 81 MG TAB.CHEW 324 MG PO (22:17)
[2022-05-03] MEDS: Metoprolol Tartrate 25 MG TABLET PO (22:17)
[2022-05-03] MEDS: Atorvastatin Calcium 80 MG TABLET PO (22:17)
[2022-05-03] MEDS: Nitroglycerin 2 % Oint 1 GM Packet 0.5 INCH TRANSDERMA (22:18)
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
--- OUTSIDE RECORDS SUMMARY | 2022-05-03 22:26 | XMS_ITS ---
:1960 Author Care Team Providers Name Role Phone DAY BROOK () OTHER [phone] Allergies Code Code System Name Reaction Severity Status Onset 7052 RxNorm Morphine ? ? Active ? Medications No Medications Reported Notes: medication has been reviewed-se e MAR for up to date list Problems Name Status Onset Date Source ? Chronic Hepatitis C Active 03/30/2019 ? Anxiety Active 03/30/2019 ? Smoker Active 03/30/2019 ? Insomnia Active 03/30/2019 ? Chronic Pain Active 03/30/2019 ? Essential Hypertension Active 03/30/2019 ? Venous Stasis Active 03/30/2019 ? Asthma Active 03/30/2019 ? Chronic Obstructive Lung Disease Active 03/30/2019 ? [id number] Respiratory Failure Active 03/30/2019 ? Crohn's Disease Active 03/30/2019 ? Bacteremia Active 03/30/2019 ? Procedures None recorded. Results Lab Results None recorded. Past Encounters None recorded. Social History Tobacco Smoking Status Heavy Tobacco Smoker (1 pack per day) Vaccine List None recorded. Plan of Care Reminders Provider Appointments None recorded. ? ? Lab None recorded. ? ? Referral None recorded. ? ? Procedures None recorded. ? ? Surgeries None recorded. ? ? Imaging None recorded. ? ? Vitals 04/03/2019 12:19PM Discharge Summary Blood Pressure 115/59 mm[Hg] 03/31/2019 11:56AM Admitting H&P Blood Pressure 115/71 mm[Hg] 03/30/2019 11:27AM Initial Intake Note Blood Pressure 141/65 mm[Hg]
[2022-05-03] MEDS: Heparin Sodium,Porcine 5,000 UNIT/ML VIAL 4000 UNIT IVPUSH (22:30)
[2022-05-03] MEDS: Heparin Sodium,Porcine/1/2NS 25,000 UNIT/250 ML IV.SOLN 10.43 UNIT IVCONT (22:40)
[2022-05-03] MEDS: Nitroglycerin 2 % Oint 1 GM Packet 1 INCH TRANSDERMA (22:59)
--- NOTE | 2022-05-03 23:06 | PC.NURSE ---
patient a&ox3, conveyor monitor snr 60s, vss, pt 3L O2 nc, pts 0.5 inch nitro paste was removed per provider and replaced with 1 inch paste.
[2022-05-04] VITALS (11 sets, daily range): BP systolic 119–187; BP diastolic 51–90; PULSE 57–69; RESP 12–22; TEMP 36.7–36.9; O2SAT 94–98
[2022-05-04 00:31] LABS: Erythrocyte Sedimentation Rate 63 MM/HR (0-20)
[2022-05-04 00:57] LABS: C Reactive Protein 4.94 mg/dL (< or = 0.50)
[2022-05-04 01:06] LABS: Troponin-I High Sensitivity 365.3 ng/L (<3.5-17.0)
[2022-05-04] MEDS: LORazepam 1 MG TABLET 2 MG PO (01:27)
[2022-05-04] MEDS: HYDROmorphone HCl 1 MG/ML SYRINGE IVPUSH ×2 (02:31→06:31)
[2022-05-04 02:45] LABS: PTT Heparin Drip 47.2 SEC (53-77.9)
[2022-05-04 04:56] LABS: Basophils Percent Auto 0.4 % (0-2); Eosinophils Absolute Auto 0.3 X10*3/uL (0.0-0.4); Eosinophils Percent Auto 4.2 % (0-4); Hematocrit 26.7 % (37.0-47.0); Hemoglobin 7.7 g/dl (12.0-16.0); Imm Gran Abs Auto 0.02 X10*3/uL (0.00-0.03); Imm Gran Pct Auto 0.3 % (0.0-0.4); Lymphocytes Absolute Auto 1.8 X10*3/uL (1.2-4.9); Lymphocytes Percent Auto 23.5 % (20-40); MANUAL DIFF FLAG NO; Mean Corpuscular HGB Conc 28.8 g/dl (31.0-35.0); Mean Corpuscular Hemoglobin 21.7 pg (27.0-33.0); Mean Corpuscular Volume 75.2 fL (80.0-98.0); Mean Platelet Volume 9.1 fL (9.4-12.3); Monocytes Absolute Auto 0.4 X10*3/uL (0.1-1.2); Monocytes Percent Auto 5.6 % (2-11); Neutrophils Absolute Auto 5.1 x10*3/uL (2.0-8.3); Platelet Count 290 X10*3/uL (160-400); Red Blood Count 3.55 X10*6/uL (4.20-5.50); Red Cell Distribution Width 15.3 % (11.0-16.0); White Blood Count 7.8 X10*3/uL (4.8-10.8)
[2022-05-04 05:11] LABS: INTERNATIONAL NORM RATIO 1.1 (0.9-1.1); Prothrombin Time 12.9 SEC (10.0-13.1)
[2022-05-04 05:13] LABS: PTT Heparin Drip 40.2 SEC (53-77.9)
[2022-05-04] MEDS: Acetaminophen 325 MG TABLET 650 MG PO (05:13)
[2022-05-04 05:16] LABS: Anion Gap 12 (12-20); Blood Urea Nitrogen 20 mg/dL (9-16); Calcium 8.4 mg/dL (8.4-10.2); Carbon Dioxide 33 mmol/L (22-29); Chloride 101 mmol/L (96-108); Estimated Glomerular Filt Rate > 60; Glucose Random 116 mg/dL (60-115); Potassium 3.8 mmol/L (3.3-5.1); Sodium 142 mmol/L (135-145)
[2022-05-04 05:22] LABS: Troponin-I High Sensitivity 446.6 ng/L (<3.5-17.0)
[2022-05-04] MEDS: Heparin Sodium,Porcine 5,000 UNIT/ML VIAL 4200 UNIT IVPUSH ×2 (05:36→12:02)
--- NOTE | 2022-05-04 07:00 | CA_ITS ---
Transthoracic Echocardiogram Patient (Last, First, Middle): Brianne Chaudhary, Gender: Female Date of : 1960 Age: 62 Procedure Date: 05/04/2022 Procedure Type: Transthoracic Echocardiogram Location: ER Height: 157.48 cm Weight: 108.86 kg BSA: 2.07 m2 Heart Rate: bpm BP: 147 / 70 mmHg Leader Assembler: Referring MD: Brandan Rivera MD Symptoms: NSTEMI Study Quality: Technically Difficult due to obesity ECG Rhythm: Sinus Conclusions: - There is moderately increased left ventricular wall thickness. The left ventricular systolic function is normal. The calculated ejection fraction is 60% by biplane method. - Wall motion assessment difficult in spite of using contrast. Distal part of inferior septum, mid to distal anterior septum appear hypokinetic. - Mildly increased right ventricular cavity size. - The left atrium is moderately dilated. - There is mild aortic valve stenosis. - There is moderate mitral annular calcification. Findings Procedure Information Contrast agent, definity, is being given per protocol without apparent complications. Left Ventricle Normal left ventricular cavity size. There is moderately increased left ventricular wall thickness. The left ventricular systolic function is normal. The calculated ejection fraction is 60% by biplane method. There is evidence of regional wall motion abnormalities. Diastolic function is indeterminate on the basis of available data. Wall motion assessment difficult in spite of using contrast. Distal part of inferior septum, mid to distal anterior septum appear hypokinetic. Right Ventricle Mildly increased right ventricular cavity size. There is normal right ventricular systolic function. Atria The left atrium is moderately dilated. The right atrium is normal in size. Aortic Valve The aortic valve was not well visualized. There is mild calcification of the aortic valve. There is mild aortic valve stenosis. The mean gradient is 11 mmHg. The aortic valve area is 1.84 cm2. There is no aortic valve regurgitation. Mitral Valve There is moderate mitral annular calcification. There is trace mitral valve regurgitation. There is no mitral valve stenosis. Pulmonic Valve The pulmonic valve is likely normal. Tricuspid Valve There is trace tricuspid valve regurgitation. There is no evidence of pulmonary hypertension. Great Vessels The asc aorta is normal in size. Venous The inferior vena cava is normal in size and collapses greater than 50% with inspiration. Pericardium/Pleural There is no evidence of pericardial effusion. Prior Study Comparison Changes noted compared to prior study dated: 03/24/2019. See comment on wall motion. Measurements 2D Linear Measurements IVSd: 1.31 0.6-0.9/0.6-1.0 cm LVIDd: 5.51 3.9-5.3/4.2-5.9 cm LVIDd Index: 2.66 2.4-3.2/2.2-3.1 cm/m2 LVIDs: 3.14 2.0-3.6 cm LVPWd: 1.26 0.7-1.1 cm Ao Root: 2.90 2.1-3.5 cm LA Diam: 3.40 2.7-3.8/3.0-4.0 cm LAIDs Index: 1.64 1.5-2.3 cm/m2 LV Mass: 374.64 67-162/88-224 g LV Mass Index: 180.99 43-95/49-115 g/m2 LVOT Diam: 2.00 3.0+(-)1.3 cm 2D Systolic Function EF 4C: 62.80 >55% EF 2C: 58.30 >55% EF BiP: 60.30 >55% Mitral Valve MV VTI: 0.52 MV Pk Shahram: 1.35 MV Mn Shahram: 0.73 MV Pk Grad: 7.00 MV Mn Grad: 3.00 MV Pk E: 0.90 MV PK A: 1.25 MV Decel Time: 371.00 E/A: 0.70 E'Lateral: 6.74 E'Medial: 3.92 E/E' Med: 23.00 E/E' Lat: 13.40 PHT: 109.00 MVA PHT: 2.02 MVA Continuity: 1.86 Decel Jack: 2.42 Aortic Valve AoV Pk Shahram: 2.36 AoV Mn Shahram: 1.49 AoV VTI: 0.53 AoV Pk Grad: 22.00 Aov Mn Grad: 11.00 RENATA Cont.VTI: 1.84 LVOT LVOT Pk Shahram: 1.22 LVOT Mn Shahram: 0.86 LVOT VTI: 0.31 LVOT Pk Grad: 6.00 LVOT Mn Grad: 3.00 LVOT Diam: 2.00 LVOT Area: 3.14 Diastolic Function MV Pk E: 0.90 MV Pk A: 1.25 E/A: 0.70 E'Medial: 3.92 E/E' Med: 23.00 E' Laterial: 6.74 E/E' Lat: 13.40 Right Ventricle TAPSE (mm): 25.00 TVS' Shahram: 9.00 Tricuspid Valve TR Pk Shahram: 2.66 TR Pk Grad: 28.00 RA Press: 3.00 RVSP: 31.00 Great Vessels Aorta Ao Root-2D: 2.90 2.0-3.7 cm Ao Asc: 3.20 2.1-3.4 cm Pulmonary Valve PV Pk Shahram: 1.33 Peak PV Grad: 7.00 Updated in Other Vendor System with Status of Final Brandan Rivera MD electronically signed on 05/04/2022 3:42:23 PM with status of Final
--- NOTE | 2022-05-04 07:46 | PHA.MEDREC ---
Pharmacy Consult ? Medication Reconciliation RN has completed the medication reconciliation, pharmacy reviewed.
--- NOTE | 2022-05-04 08:08 | PHA.PROG ---
Admission Date/Time: May 03, 2022 22:15 Indication: other Weight in k.326 kg Adjusted body weight in Kg: [place] body weight in Kg: Obesity Dosing Indication % IBW: obese model Serum Creatinine - Last 168 Hours 05/03/22 05/04/22 17:14 04:51 Creatinine 0.76 0.72 Estimated CrCl and GFR - Last 168 Hours 05/03/22 05/04/22 17:14 04:51 Estim Creat Clear Calc 88.1 93.0 Estimated GFR > 60 > 60 Vancomycin Loading Dose: 2000mg X 1 Current Vancomycin Dosing Regimen: 750mg Q12H Vancomycin Monitoring using AUC goal of 400 - 600 range with trough as surrogate marker: 428mg/L Date and Time for next Vancomycin Level to be drawn: 05/05/22 @1200 Pharmacist Comments on Vancomycin Plan: Vancomycin dosing will take advantage of [employer] as a clinical decision support tool that uses Bayesian modeling to calculate individual patient's pharmacokinetic parameters and forecast the patient's drug concentration time course with the target goal AUC 24 range of 400 - 600 mg/L/hr.
[2022-05-04] MEDS: cephALEXin 500 MG CAPSULE PO ×2 (08:34→12:56)
[2022-05-04] MEDS: Furosemide 40 MG TABLET PO (08:35)
[2022-05-04] MEDS: Omeprazole 20 MG CAPSULE.DR PO (08:35)
--- NOTE | 2022-05-04 08:39 | PC.NURSE ---
pt alert and oriented, skin pwd, respirations even and unlabored, ls clear, pt took herself off the cpap and on her 4l nasal cannual for the day, pt denies chest pain, vs stable but the hr ranges in the high 50's so holding the morning garrickzacass for now dr valadez at bedside as well possible plan for the pt to be transferred to [facility]
[2022-05-04] MEDS: Theophylline Anhydrous ER 400 MG TAB.ER.24H PO (08:50)
[2022-05-04] MEDS: HYDROmorphone HCl 0.5 MG/0.5 ML SYRINGE IVPUSH (08:50)
--- NOTE | 2022-05-04 09:02 | P.PNIM_ITS ---
Subjective Subjective Date of Service: 05/04/22 Interval History: Seen in f/u for NSTEMI Interval history: she says she thought her pain was due to PE and continues to be having some pain and is getting dilaudid for this Review of Systems +chest pain + pain in the right leg Physical Exam Vital Signs: Vital Signs: Last Vital Signs Temp 98.0 F 05/03/22 22:26 Pulse 60 05/04/22 07:49 Resp 20 05/04/22 07:49 BP 148/69 H 05/04/22 07:49 Pulse Ox 95 05/04/22 07:49 O2 Del Method 05/04/22 07:49 O2 Flow Rate 4 05/04/22 07:49 Oxygen Flow Rate 3 05/03/22 16:34 BMI result Body Mass Index 42.0 Const: Other: General: AO X 3, no acute distress Resp: CTA bilateral CVS: S1,S2,RRR GI: +BS, NT, no distention Skin: No rash, wound of right thigh area without erythema with minimal drainage Neuro: motor grossly intact Psych: appropriate affect Objective Data Active Medications Acetaminophen (Acetaminophen 325 Mg Tablet) 650 mg PO Q6H PRN PRN Reason: Pain, Mild (Pain Scale 1-3) Last Admin: 05/04/22 05:13 Dose: 650 mg Documented By: HENRIQUE Albuterol/Ipratropium (Albuterol/Iprat 2.5/0.5mg 3 Ml Ampul.Neb) 3 ml INHALE RQ6H BEN Albuterol/Ipratropium (Albuterol/Iprat 2.5/0.5mg 3 Ml Ampul.Neb) 3 ml INHALE RQ4H PRN PRN Reason: Shortness of Breath/Wheezing Cephalexin HCl (Cephalexin 500 Mg Capsule) 500 mg PO QID BEN Last Admin: 05/04/22 08:34 Dose: 500 mg Documented By: CYNTHIA Clonazepam (Clonazepam 0.125 Mg Tab.Rapdis) 0.25 mg PO DAILY BEN Diltiazem HCl (Diltiazem Hcl Cd 180 Mg Cap.Er.24h) 180 mg PO DAILY BEN; Protocol Last Admin: 05/04/22 08:35 Dose: Not Given Documented By: CYNTHIA Non-Admin Reason: hr high 50's Docusate Sodium (Docusate Sodium 100 Mg Capsule) 100 mg PO DAILY PRN PRN Reason: Constipation Furosemide (Furosemide 40 Mg Tablet) 40 mg PO DAILY [facility]; Protocol Last Admin: 05/04/22 08:35 Dose: 40 mg Documented By: CYNTHIA Heparin Sodium (Porcine) (Heparin Sodium,Porcine 5,000 Unit/Ml Vial) 4,200 unit 40 unit/kg (4200 unit) IVPUSH PROTOCOL BOLUS PRN; Protocol PRN Reason: 40 unit/kg - Heparin Protocol Last Admin: 05/04/22 05:36 Dose: 4,200 unit Documented By: HENRIQUE Heparin Sodium (Porcine) (Heparin Sodium,Porcine 5,000 Unit/Ml Vial) 8,300 unit 80 unit/kg (8300 unit) IVPUSH PROTOCOL BOLUS PRN; Protocol PRN Reason: 80 unit/kg - Heparin Protocol Hydromorphone HCl (Hydromorphone Hcl 1 Mg/Ml Syringe) 2 mg IVPUSH Q4H PRN; Protocol PRN Reason: Pain, Severe (Pain Scale 7-10) Heparin Sodium/Sodium Chloride (Heparin Sodium,Porcine/1/2ns) 25,000 unit in 250 mls @ 0 mls/hr IVCONT .Q0M [facility]; Protocol Last Titration: 05/04/22 05:37 Dose: 12 units/kg/hr, 12.52 mls/hr Documented By: HENRIQUE Co-signed By: SOREN Vancomycin HCl 750 mg/ Sodium (Chloride) 265 mls @ 265 mls/hr IV Q12H [facility] Naproxen (Naproxen 250 Mg Tablet) 250 mg PO BID [facility] Nitroglycerin (Nitroglycerin 0.4 Mg Tab.Subl) 0.4 mg SUBLINGUAL Q5MX3 PRN PRN Reason: chest pain Omeprazole (Omeprazole 20 Mg Capsule.Dr) 20 mg PO DAILY@0630 [facility] Last Admin: 05/04/22 08:35 Dose: 20 mg Documented By: CYNTHIA Ondansetron HCl (Ondansetron Hcl 4 Mg/2 Ml Vial) 4 mg IVPUSH Q8H PRN PRN Reason: Nausea and Vomiting Pharmacy Consult (Consult Rx Vancomycin Dosing) 1 each MISCELLANE DAILY PRN PRN Reason: Consult order Sodium Chloride (0.9 % Sodium Chloride Flush 3 Ml Syringe) 3 ml IVFLUSH QSHIFT [facility] Last Admin: 05/04/22 07:52 Dose: Not Given Documented By: CYNTHIA Non-Admin Reason: IV Running Temazepam (Temazepam 15 Mg Capsule) 30 mg PO BEDTIME PRN PRN Reason: Insomnia Theophylline (Theophylline Anhydrous Er 400 Mg Tab.Er.24h) 400 mg PO DAILY [facility] Last Admin: 05/04/22 08:50 Dose: 400 mg Documented By: CYNTHIA Labs CBC & Chem 7: 05/04/22 04:51 05/04/22 04:51 Labs: Laboratory Results - last 24 hr 05/03/22 05/03/22 05/03/22 17:14 17:14 17:14 MCV 75.9 L MCH 21.9 L MCHC 28.9 L RDW 15.4 Plt Count 330 D MPV 10.0 Immature Gran % (Auto) 0.2 Neut % (Auto) 85.6 H Lymph % (Auto) 5.5 L [place] % (Auto) 5.8 Eos % (Auto) 2.4 Baso % (Auto) 0.5 Lymph # (Auto) 0.7 L [place] # (Auto) 0.7 Eos # (Auto) 0.3 Baso # (Auto) 0.1 Abs Immat Gran (auto) 0.03 Absolute Neuts (auto) 10.6 H Absolute Nucleated RBC 0.000 Nucleated RBC % (auto) 0.0 Smear Tech's Comments VERIFIED ESR PT 12.2 INR 1.1 APTT 26.7 aPTT Heparin Protocol D-Dimer High Sensitivty 464 Anion Gap 15 Estim Creat Clear Calc 88.1 Estimated GFR > 60 Random Glucose 152 H Lactic Acid Calcium 9.2 D Total Bilirubin 0.2 AST 29 D ALT 11 Alkaline Phosphatase 171 H D Total Creatine Kinase 41 Troponin I High Sens C-Reactive Protein 4.94 H B-Natriuretic Peptide Total Protein 7.4 D Albumin 3.7 D Lipase 12 Urine Color Urine Appearance Urine pH Ur Specific [place] Urine Protein Urine Glucose (UA) Urine Ketones Urine Blood Urine Nitrite Ur Leukocyte Esterase Urine RBC Urine WBC Ur Squamous Epith Cells Urine Bacteria Hyaline Casts COVID-19 ([facility]) COVID-19 Clin Com 05/03/22 05/03/22 05/03/22 17:14 17:14 17:14 MCV MCH MCHC RDW Plt Count MPV Immature Gran % (Auto) Neut % (Auto) Lymph % (Auto) [place] % (Auto) Eos % (Auto) Baso % (Auto) Lymph # (Auto) [place] # (Auto) Eos # (Auto) Baso # (Auto) Abs Immat Gran (auto) Absolute Neuts (auto) Absolute Nucleated RBC Nucleated RBC % (auto) Smear Tech's Comments ESR 63 H PT INR APTT aPTT Heparin Protocol D-Dimer High Sensitivty Anion Gap Estim Creat Clear Calc Estimated GFR Random Glucose Lactic Acid 1.2 Calcium Total Bilirubin AST ALT Alkaline Phosphatase Total Creatine Kinase Troponin I High Sens 38.6 H C-Reactive Protein B-Natriuretic Peptide 77 Total Protein Albumin Lipase Urine Color Urine Appearance Urine pH Ur Specific [place] Urine Protein Urine Glucose (UA) Urine Ketones Urine Blood Urine Nitrite Ur Leukocyte Esterase Urine RBC Urine WBC Ur Squamous Epith Cells Urine Bacteria Hyaline Casts COVID-19 ([facility]) COVID-19 Primedic Com 05/03/22 05/03/22 05/03/22 17:15 20:00 20:18 MCV MCH MCHC RDW Plt Count MPV Immature Gran % (Auto) Neut % (Auto) Lymph % (Auto) [place] % (Auto) Eos % (Auto) Baso % (Auto) Lymph # (Auto) [place] # (Auto) Eos # (Auto) Baso # (Auto) Abs Immat Gran (auto) Absolute Neuts (auto) Absolute Nucleated RBC Nucleated RBC % (auto) Smear Tech's Comments ESR PT INR APTT aPTT Heparin Protocol D-Dimer High Sensitivty Anion Gap Estim Creat Clear Calc Estimated GFR Random Glucose Lactic Acid Calcium Total Bilirubin AST ALT Alkaline Phosphatase Total Creatine Kinase Troponin I High Sens 202.2 H* D C-Reactive Protein B-Natriuretic Peptide Total Protein Albumin Lipase Urine Color Dark Yellow Urine Appearance Clear Urine pH 7.0 Ur Specific [place] >= 1.030 H Urine Protein 100 (2+) H Urine Glucose (UA) Negative Urine Ketones Negative Urine Blood Negative Urine Nitrite Positive H Ur Leukocyte Esterase Negative Urine RBC 0-2 Urine WBC 0-5 Ur Squamous Epith Cells 0-2 Urine Bacteria None Seen Hyaline Casts 0-2 COVID-19 ([facility]) Negative COVID-19 Clin Com See Note 05/04/22 05/04/22 05/04/22 00:36 02:22 04:51 MCV 75.2 L MCH 21.7 L MCHC 28.8 L RDW 15.3 Plt Count 290 MPV 9.1 L Immature Gran % (Auto) 0.3 Neut % (Auto) 66.0 Lymph % (Auto) 23.5 [place] % (Auto) 5.6 Eos % (Auto) 4.2 H Baso % (Auto) 0.4 Lymph # (Auto) 1.8 [place] # (Auto) 0.4 Eos # (Auto) 0.3 Baso # (Auto) 0.0 Abs Immat Gran (auto) 0.02 Absolute Neuts (auto) 5.1 Absolute Nucleated RBC 0.000 Nucleated RBC % (auto) 0.0 Smear Tech's Comments ESR PT INR APTT aPTT Heparin Protocol 47.2 L D-Dimer High Sensitivty Anion Gap Estim Creat Clear Calc Estimated GFR Random Glucose Lactic Acid Calcium Total Bilirubin AST ALT Alkaline Phosphatase Total Creatine Kinase Troponin I High Sens 365.3 H* D C-Reactive Protein B-Natriuretic Peptide Total Protein Albumin Lipase Urine Color Urine Appearance Urine pH Ur Specific [place] Urine Protein Urine Glucose (UA) Urine Ketones Urine Blood Urine Nitrite Ur Leukocyte Esterase Urine RBC Urine WBC Ur Squamous Epith Cells Urine Bacteria Hyaline Casts COVID-19 ([facility]) [employer] 05/04/22 05/04/22 05/04/22 04:51 04:51 04:51 MCV MCH MCHC RDW Plt Count MPV Immature Gran % (Auto) Neut % (Auto) Lymph % (Auto) [place] % (Auto) Eos % (Auto) Baso % (Auto) Lymph # (Auto) [place] # (Auto) Eos # (Auto) Baso # (Auto) Abs Immat Gran (auto) Absolute Neuts (auto) Absolute Nucleated RBC Nucleated RBC % (auto) Smear Tech's Comments ESR PT 12.9 INR 1.1 APTT aPTT Heparin Protocol D-Dimer High Sensitivty Anion Gap 12 Estim Creat Clear Calc 93.0 Estimated GFR > 60 Random Glucose 116 H Lactic Acid Calcium 8.4 D Total Bilirubin AST ALT Alkaline Phosphatase Total Creatine Kinase Troponin I High Sens 446.6 H* C-Reactive Protein B-Natriuretic Peptide Total Protein Albumin Lipase Urine Color Urine Appearance Urine pH Ur Specific [place] Urine Protein Urine Glucose (UA) Urine Ketones Urine Blood Urine Nitrite Ur Leukocyte Esterase Urine RBC Urine WBC Ur Squamous Epith Cells Urine Bacteria Hyaline Casts COVID-19 ([facility]) COVID-19 Clin Com 05/04/22 04:51 MCV MCH MCHC RDW Plt Count MPV Immature Gran % (Auto) Neut % (Auto) Lymph % (Auto) [place] % (Auto) Eos % (Auto) Baso % (Auto) Lymph # (Auto) [place] # (Auto) Eos # (Auto) Baso # (Auto) Abs Immat Gran (auto) Absolute Neuts (auto) Absolute Nucleated RBC Nucleated RBC % (auto) Smear Tech's Comments ESR PT INR APTT aPTT Heparin Protocol 40.2 L D-Dimer High Sensitivty Anion Gap Estim Creat Clear Calc Estimated GFR Random Glucose Lactic Acid Calcium Total Bilirubin AST ALT Alkaline Phosphatase Total Creatine Kinase Troponin I High Sens C-Reactive Protein B-Natriuretic Peptide Total Protein Albumin Lipase Urine Color Urine Appearance Urine pH Ur Specific [place] Urine Protein Urine Glucose (UA) Urine Ketones Urine Blood Urine Nitrite Ur Leukocyte Esterase Urine RBC Urine WBC Ur Squamous Epith Cells Urine Bacteria Hyaline Casts COVID-19 ([facility]) COVID-19 Clin Com Assessment and Plan (1) Acute non-ST elevation myocardial infarction (NSTEMI): Status: Acute Plan 62-year-old female with past medical history of COPD, CHF, history of nondisplaced fracture right patella, history of femoral fracture status post ORIF as well as open reduction internal fixation with platelets of tib fib fracture status post bone graft with chronic wound presents to the hospital chest pain found to have NSTEMI # NSTEMI--She pesented with typical pain, no no signficant ST-T changes on ECG, however troponin I was significantly high starting at 38 and now 446. She has been medically treated with IV heparin, ASA, Statin. Stop cardizem and replace with BB. Presently hemodynamically stable and cardiology to assess for further recommendation # acute on chronic hypoxic respiratory failure - in the setting of underlying COPD and NSTEMI - has no evidence of COPD exacerbation - no elevated BNP, no orthopnea or PND - large segmental PE was ruled out with CT angiogram but subsegmental and small PEs cannot be ruled out, therefore I will obtain V/Q scan - monitor respiratory psych, continue oxygen as needed, patient reports being on 6 L of oxygen at baseline # dyspnea - likely secondary to above - monitor respiratory status # nonhealing wound of right lower extremity - just right above the right knee there with purulent discharge - records were obtained from [facility], with recent wound cultures from 05/01 showing Staph aureus isolate prelim results - Started on Vanco. She wants to hold of imaging of the area with CT.. Her ortho doctor is at [facility] # ALEKSEY/OHS - cpap at bedtime #Morbid obesity impacting ALEKSEY, weight loss advised DVT prophylaxis:? Heparin ggt need for inpatient: treatment for NSTEMI with IV heparin Quality Stroke Does the patient have a stroke diagnosis?: No VTE Prior VTE?: No VTE Risk Level:: Medical - moderate - high VTE Device Contraindication: Treatment Not Indicated VTE Drug Contraindication: N/A - Med Ordered
--- NOTE | 2022-05-04 11:23 | MHC.CM.PN ---
met with pt and her is steven vax x 3 her pcp is at [facility] forgot name has transport home when dcd does not expect to need servies when dcd
[2022-05-04] MEDS: HYDROmorphone HCl 1 MG/ML SYRINGE 2 MG IVPUSH ×2 (11:26→16:33)
[2022-05-04 11:48] LABS: PTT Heparin Drip 52.2 SEC (53-77.9)
--- NOTE | 2022-05-04 12:07 | PC.NURSE ---
cardiology at bedside speaking to the pt
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
[2022-05-04] MEDS: vancomycin HCL 750 MG in 0.9 % Sodium Chloride 250 ML 265 MG IV (14:30)
--- NOTE | 2022-05-04 14:44 | PC.NURSE ---
pt is concern that the H+H is inaccurate at this time believes that the bloods might have hemolized spoke with dr carrington about this concern pt is now willing to have the bloods
--- NOTE | 2022-05-04 15:55 | PC.NURSE ---
ASSUMED CARE OF PATIENT AT THIS TIME ,PATIENT REPORT BEING INCONIENT OF URINE ,MEIR CARE GIVEN AND NEW PERWICK IN PLACE .
[2022-05-04] MEDS: Heparin Sodium,Porcine/1/2NS 25,000 UNIT/250 ML IV.SOLN 14.61 UNIT IVCONT (17:43)
--- NOTE | 2022-05-04 18:20 | PC.NURSE ---
assumed care of pt at 1545, pt a&ox3, hypertensive, other vss, pt declined cephalexin - per pt, plan per [facility] to discontinue due to +MRSA culture. IV left AC infiltrated, vanco held. 18G placed in R AC via u/s, vanco restarted, medicated for 10/10 pain in R leg. new bag of heparin hung, running at 14u/kg/hr - no rate change, labs due at 1800, will notify [facility]. 1u PRBC started, vss, pt toerating well, 15 min vitals documented. EMS on scene to transfer pt to [facility] [employer], Rm 4.
--- NOTE | 2022-05-04 18:41 | PC.NURSE ---
RN-RN report called into [facility].
== END 2022-05-04 19:00 | disposition short-term general hospital (02) | DRG 280 ==
LOC: HO.ED 22:14 → HO.EDOVER 22:22
PROVIDERS: Admitting Provider Internal Medicine; Emergency Provider Emergency Medicine Emergency Medical Services; Visit Provider Internal Medicine
DX: I21.4 Non-ST elevation (NSTEMI) myocardial infarction (principal); J96.21 Acute and chronic respiratory failure with hypoxia; E66.2 Morbid (severe) obesity with alveolar hypoventilation; Z68.41 Body mass index [BMI] 40.0-44.9, adult; L97.819 Non-pressure chronic ulcer of other part of right lower leg with unspecified severity; J44.9 Chronic obstructive pulmonary disease, unspecified; D64.9 Anemia, unspecified; Z99.81 Dependence on supplemental oxygen; I48.0 Paroxysmal atrial fibrillation; Z20.822 Contact with and (suspected) exposure to COVID-19; Z87.891 Personal history of nicotine dependence; Z88.5 Allergy status to narcotic agent; Z79.82 Long term (current) use of aspirin; Z79.899 Other long term (current) drug therapy
CPT/HCPCS: 36415; 71275; 80048; 80053; 81001; 82550; 83605; 83690; 83880; 84484; 85025; 85379; 85610; 85652; 85730; 86140; 86850; 86900; 86901; 86923; 87040; 87086; 87635; 93005; 93306; 99285; J1170; J3370; P9016; Q9957; Q9967

== ENCOUNTER 2022-05-22 00:33 | Emergency (ER) | payer MEDICARE, MEDICAID, SELFPAY ==
--- NOTE | ~2022-05-22 | XR_ITS ---
EXAMINATION: XR CHEST CLINICAL INFORMATION: CHF COMPARISON: 12/24/2020 TECHNIQUE: Frontal view of the chest was obtained. FINDINGS: The lungs are well expanded. There is no focal consolidation or effusion. Central vascular prominence without overt edema. No pneumothorax. The cardiomediastinal silhouette is within normal limits. No acute osseous abnormality. XR/XR chest 1V IMPRESSION: Central vascular prominence without overt edema.
[2022-05-22 00:46] VITALS: BP 144/70; BP 147/56; PULSE 60; PULSE 63; RESP 20; O2SAT 100; O2SAT 98; BMI 43.4
[2022-05-22 00:54] VITALS: BP 147/56; PULSE 68; RESP 20; TEMP 36.7; O2SAT 99
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
--- OUTSIDE RECORDS SUMMARY | 2022-05-22 01:10 | XMS_ITS | Continuity of Care Document ---
:1960 Author Organization [facility] Address [address] [place] [id number]- Care Team Providers Name Role Phone Tima ORDAZ, Annemarie Slater Primary Care Physician Encounter [facility] Date(s): 05/04/22 - 05/14/[address] [address] Discharge Disposition: A-D/C Home Attending Physician: Idania ORDAZ, Ch[place] Admitting Physician: Sawyer Aj MD Referring Physician: Sawyer Aj MD Allergies, Adverse Reactions, Alerts Substance Reaction Severity Status morphine anaphylaxis Severe Active gabapentin tardive dyskenesia Active Tomatoes Active propofol anaphylaxis Active Immunizations Given and Recorded Vaccine Date Status Refusal Reason influenza virus vaccine, inactivated 05/05/22 Given influenza virus vaccine, inactivated 04/26/19 Recorded influenza virus vaccine, inactivated 06/02/18 Recorded influenza virus vaccine, inactivated 05/20/17 Recorded SARS-CoV-2 (COVID-19) mRNA-1273 vaccine 07/03/21 Recorded SARS-CoV-2 (COVID-19) mRNA-1273 vaccine 01/02/21 Recorded SARS-CoV-2 (COVID-19) mRNA-1273 vaccine 10/04/20 Recorded pneumococcal 13-valent vaccine 06/02/18 Recorded Tetanus-Diphth Toxoids, Adult (oldterm) 03/21/18 Given Medications acetaminophen 500 mg oral capsule 1 capsule = 500 mg, By Mouth, 2 times a day, 0 Refills, Maintenance, 09/24/21 10:36:00 EST, Partial fill upon patient request if the prescription is for a schedule II opioid drug. Start Date: 09/24/21 Status: Orderedapixaban 5 mg oral tablet 1 tablet = 5 mg, By Mouth, 2 times a day, # 60 tablet, 0 Refills, Maintenance, 05/14/22 16:10:00 EDT, Tablet, [facility], Partial fill upon patient request if the prescription is for a schedule II opioid drug., 156, cm, 05/14/22 15:10:00... Start Date: 05/14/22 Status: Orderedaspirin 81 mg oral delayed release tablet 81 mg, By Mouth, Daily, # 30 tablet, Refills 0, Tot. Refills 0, Maintenance, 05/14/22 16:09:00 EDT, Route to Pharmacy Electronically, [facility], Partial fill upon patient request if the prescription is for a schedule II opioid drug., 15... Start Date: 05/14/22 Status: Orderedatorvastatin 80 mg oral tablet 1 tablet = 80 mg, By Mouth, Daily at bedtime, # 30 tablet, 0 Refills, Maintenance, 05/14/22 16:09:00EDT, Tablet, [facility], Partial fill upon patient request if the prescription is for a schedule II opioid drug., 156, cm, 05/14/22 15:1... Start Date: 05/14/22 Status: Orderedbisacodyl 10 mg rectal suppository 1 supp = 10 mg, Rectally, Daily, PRN Constipation, 0 Refills, Maintenance, 11/18/21 12:52:00 EDT, Suppository, Partial fill upon patient request if the prescription is for a schedule II opioid drug. Start Date: 11/18/21 Status: OrderedCardizem LA 180 mg/24 hours oral tablet, extended release 1 tablet = 180 mg, By Mouth, Daily, Maintenance, 02/05/21 13:05:00 EDT Start Date: 02/05/21 Status: OrderedclonazePAM 0.5 mg oral tablet 1 tablet = 0.5 mg, By Mouth, Daily, PRN Anxiety, # 3 tablet, 0 Refills, Maintenance, 11/17/21 9:43:00 EDT, Tablet, Partial fill upon patient request if the prescription is for a schedule II opioid drug. Start Date: 11/17/21 Stop Date: 11/20/21 Status: OrderedCoreg 6.25 mg oral tablet 6.25 mg, 1, tablet, By Mouth, 2 times a day, # 60 tablet, Refills 0, Tot. Refills 0, Maintenance, 05/14/22 16:09:00 EDT, Route to Pharmacy Electronically, [facility], Partial fill upon patient request if the prescription is for a schedul... Start Date: 05/14/22 Status: OrderedCoreg 6.25 mg oral tablet 6.25 mg, Tablet, By Mouth, 05/14/22 9:00:00 EDT Start Date: 05/14/22 Stop Date: 05/14/22 Status: CompletedDiltiazem 0 Refills, Maintenance, 05/01/22 12:34:00 EDT, Partial fill upon patient request if the prescriptionis for a schedule II opioid drug. Start Date: 05/01/22 Status: Ordereddiltiazem 180 mg/24 hours oral capsule, extended release 180 mg, CD Capsule, By Mouth, 05/14/22 9:00:00 EDT Start Date: 05/14/22 Stop Date: 05/14/22 Status: CompletedDocusate Sodium Capsule 100 mg, 1, capsule, By Mouth, 2 times a day, Refills 0, Maintenance, 11/18/21 12:52:00 EDT, Partial fill upon patient request if the prescription is for a schedule II opioid drug. Start Date: 11/18/21 Status: Ordereddoxycycline hyclate 100 mg oral tablet = 100 mg, By Mouth, Every 12 hours, # 60 tablet, 0 Refills, Acute 06/15/22 14:07:00 EST, 05/14/22 14:05:00 EDT, Tablet, [facility], Partial fill upon patient request if the prescription is for a schedule II opioid drug., 156, cm, ... Start Date: 05/14/22 Stop Date: 06/15/22 Status: Orderedferrous sulfate 325 mg oral enteric coated tablet 325 mg, By Mouth, Every Wednesday, Wednesday and Wednesday, # 30 tablet, Refills 0, Tot. Refills 0, Maintenance, 05/14/22 16:09:00 EDT, Route to Pharmacy Electronically, [facility], Partial fill upon patient request if the prescription is for... Start Date: 05/14/22 Status: OrderedMilk of Magnesia Liquid 30 mL, By Mouth, 2 times a day, PRN Constipation, 0 Refills, Maintenance, 11/18/21 12:52:00 EDT, Suspension, Partial fill upon patient request if the prescription is for a schedule II opioid drug. Start Date: 11/18/21 Status: OrderedMiraLax Powder 1 pack/packet = 17 Gm, By Mouth, Daily, 0 Refills, Maintenance, 11/18/21 12:52:00 EDT, Powder, Partial fill upon patient request if the prescription is for a schedule II opioid drug. Start Date: 11/18/21 Status: Orderednitroglycerin 0.4 mg sublingual tablet 1 tablet = 0.4 mg, Sublingual, Every 5 minutes, PRN Chest Pain, 0 Refills, Maintenance, 05/14/22 7:11:00 EDT, Tablet, Partial fill upon patient request if the prescription is for a schedule II opioid drug. Start Date: 05/14/22 Status: Orderednystatin topical 434973 u/gm powder See Instructions, APPLY TO AFFECTED AREA TWICE A DAY TO THE SKIN FOLDS NEEDED, # 30 Gm, 0 Refills, [id number], 15, APPLY TO AFFECTED AREA TWICE A DAY TO THE SKIN FOLDS NEEDED, 155, cm, 06/03/21 10:30:00 EST, Height, 111.36, kg, 04/07/21 11:... Start Date: 09/30/21 Status: Orderedomeprazole 20 mg oral delayed release tablet 1 tablet = 20 mg, By Mouth, Daily, # 30 tablet, 0 Refills, Maintenance, 04/17/22 18:01:00 EDT, CR Tablet, [id number], Partial fill upon patient request if the prescription is for a schedule II opioid drug., 158, cm, 04/17/22 16:11:00 EDT, Heig... Start Date: 04/17/22 Status: OrderedoxyCODONE 15 mg oral tablet 1 tablet = 15 mg, By Mouth, Every 6 hours, PRN as needed for pain, # 5 tablet, 0 Refills, Acute 05/16/22 14:06:00 EDT, 05/14/22 14:05:00 EDT, Tablet, [facility], Partial fill upon patientrequest if the prescription is for a schedule II... Start Date: 05/14/22 Stop Date: 05/16/22 Status: OrderedoxyCODONE 5 mg oral tablet 15 mg, Tablet, By Mouth, Once, PRN for Pain , Severe, Routine, 05/14/22 14:31:00 EDT Start Date: 05/14/22 Stop Date: 05/14/22 Status: CompletedoxyCODONE 5 mg oral tablet 5 mg, Tablet, By Mouth, Every 4 hours, PRN for Pain , Severe, Routine, 05/08/22 13:15:00 EDT Start Date: 05/08/22 Stop Date: 05/14/22 Status: Discontinuedtheophylline 400 mg/24 hours oral tablet, extended release 1 tablet = 400 mg, By Mouth, Daily, Maintenance, 02/05/21 13:06:00 EDT, ER Tablet Start Date: 02/05/21 Status: OrderedTrelegy Ellipta 200 mcg-62.5 mcg-25 mcg/inh inhalation powder 1 puffs, Inhalation, Daily, at the same time every day, 0 Refills, Maintenance, 09/24/21 10:40:00 EST, Powder, Partial fill upon patient request if the prescription is for a schedule II opioid drug. Start Date: 09/24/21 Status: Ordered Problem List Condition Confirmation Course Effective Dates Status Health I nformant Status Atrial fibrillation Confirmed Active Bacteremia due to Confirmed Active Gram-positive bacteria Chronic pain Confirmed Active Obesity Confirmed Active hypoventilation syndrome Bone fracture Confirmed Active HTN (hypertension) Confirmed Active Respiratory failure Confirmed Active with hypoxia Hardware complicating Confirmed Active wound infection Enterococcus faecalis Confirmed Active infection Open leg wound/ LLE Confirmed Active Opioid use disorder, Confirmed Active severe, in sustained remission Metabolic alkalosis Confirmed Active with respiratory acidosis Severe obesity Confirmed Active Sleep apnea Confirmed Active Results Orders for Microbiology Reports Name Date Anaerobic Culture (ANAEROBIC CULTURE) 05/10/22 Wound Deep Culture w/ Gram Smear (DEEP WOUND CULTURE) 05/10/22 Microbiology Reports TEST:Anaerobic Culture STATUS:Auth (Verified) BODY SITE: SOURCE:ABSCES COLLECTED DATE/TIME:05/10/22 11:47 AMAnaerobic Culture SPECIMEN DESCRIPTION : ABSCESS R THIGH SPECIAL REQUESTS : NONE CULTURE : NO ANAEROBES ISOLATED REPORT STATUS : FINAL 05/12/2022TEST:Deep Wound Culture STATUS:Auth (Verified) BODY SITE: SOURCE:ABSCES COLLECTED DATE/TIME:05/10/22 11:47 AMDeep Wound Culture SPECIMEN DESCRIPTION : ABSCESS R THIGH SPECIAL REQUESTS : NONE GRAM STAIN : 2+ POLYMORPHONUCLEAR LEUKOCYTES 2+ GRAM POSITIVE COCCI CULTURE : 4+ STAPHYLOCOCCUS AUREUS, METHICILLIN RESISTANT. METHICILLIN RESISTANT STAPH AUREUS SHOULD BE CONSIDERED CLINICALLY RESISTANT TO ALL BETA-LACTAMS. These AST results were performed on the Micro[employer] ID and AST system REPORT STATUS : FINAL 05/12/2022 ORGANISM 4+ STAPHYLOCOCCUS AUREUS, METHICILLIN RESISTANT. METHICILLIN RESISTANT STAPH AUREUS SHOULD BE CONSIDERED CLINICALLY RESISTANT TO ALL BETA-LACTAMS. These AST results were performed on the [employer] ID and AST system METHOD MIN. INHIB. CONC. (MCG/ML) CIPROFLOXACIN RESISTANT CLINDAMYCIN RESISTANT ERYTHROMYCIN RESISTANT INDUCIBLE CLINDAMYCI POSITIVE LEVOFLOXACIN RESISTANT OXACILLIN RESISTANT RIFAMPIN SUSCEPTIBLE RIFAMPIN RIFAMPIN SHOULD NOT BE USED ALONE FOR ANTIMICROBIAL RIFAMPIN THERAPY. TETRACYCLINE SUSCEPTIBLE TRIMETH/SULFAMETHOX SUSCEPTIBLE VANCOMYCIN SUSCEPTIBLE Vital Signs Most recent to oldest 1 2 3 [Reference Range]: Height 156 cm 156 cm 156 cm (05/14/22 3:10 PM) (05/14/22 6:28 AM) (05/14/22 3:45 AM) Weight 118.4 kg 118.4 kg 117.5 kg (05/10/22 10:44 AM) (05/08/22 2:06 AM) (05/07/22 3:06 AM) Oxygen Saturation [94-100 99 % 100 % 100 % %] (05/14/22 3:10 PM) (05/14/22 6:28 AM) (05/14/22 3:45 AM) Pulse Rate [55-90 bpm] 57 bpm 51 bpm 51 bpm (05/14/22 3:10 PM) *L* *L* (05/14/22 8:12 AM) (05/14/22 8:1 2 AM) Body Mass Index 48.65 kg/m2 48.49 kg/m2 [18.5-24.99 kg/m2] *>HHI* *>HHI* (05/10/22 10:44 AM) (05/04/22 7:13 PM) Blood Pressure 141/61 mm Hg 124/57 mm Hg 124/57 mm Hg [90-138/55-84 mm Hg] *H* (05/14/22 8:12 AM) (10/20/2 2 8:12 AM) (05/14/22 3:10 PM) Respiratory Rate [16-30 18 br/min 18 br/min 18 br/mi n br/min] (05/14/22 3:10 PM) (05/14/22 2:17 PM) (05/14/22 12:40 PM) Temperature [96.8-100.4 98.1 DegF 97.8 DegF 97.6 Deg F DegF] (05/14/22 3:10 PM) (05/14/22 6:28 AM) (05/14/22 3:45 AM) Liters per Minute 4 L/min 7 L/min 3 L/min (05/14/22 3:10 PM) (05/14/22 6:28 AM) (05/14/22 3:45 AM) Mode of Delivery (Oxygen) Nasal cannula CPAP Nasal cannula (05/14/22 3:10 PM) (05/14/22 6:28 AM) (05/14/22 3:45 AM) Blood pressure sites Arm, left Arm, left Arm, left (05/14/22 3:10 PM) (05/14/22 6:28 AM) (05/14/22 3:45 AM) Temperature Route Oral Axillary Oral (05/14/22 3:10 PM) (05/14/22 6:28 AM) (05/14/22 3:45 AM) Dry Weight 116 kg (05/04/22 7:13 PM) Weight Obtained Via Bed scale Bed scale Bed scale (05/08/22 2:06 AM) (05/07/22 3:06 AM) (05/06/22 6:21 AM) Dry Weight Obtained Via Patient/family stated (05/04/22 7:13 PM) Social History Social History Type Response Smoking Status Former smoker, quit more kar n 30 days ago; Other: quit x 1 yr; 0.5-1ppd x 30 yrs; entered on: 05/22/21 Sex Patient Care team information PersonnelName: Annemarie Alfred MD Address: Address: [address] [place] [address] [place] [address]
--- OUTSIDE RECORDS SUMMARY | 2022-05-22 01:10 | XMS_ITS | Continuity of Care Document ---
:[address] [facility] [place] Address [address] [place] [address]- Care Team Providers Name Role Phone Annemarie Alfred MD Primary Care Physician Encounter [facility] Date(s): 05/01/22 - 05/08/22 [facility] [address], [place] [address] Attending Physician: Raphael Johnston DO Referring Physician: Annemarie Alfred MD Allergies, Adverse Reactions, Alerts Substance Reaction Severity Status morphine anaphylaxis Severe Active propofol anaphylaxis Active gabapentin tardive dyskenesia Active Tomatoes Active Immunizations Given and Recorded Vaccine Date [...] day, # 60 tablet, 0 Refills, Maintenance, 09/24/21 10:36:00 EST, Tablet, Partial fill upon patient request if the prescription is for a schedule II opioid drug. Start Date: 09/24/21 Status: Orderedbisacodyl 10 mg rectal suppository 1 supp = 10 mg, Rectally, Daily, PRN Constipation, 0 Refills, Maintenance, 11/18/21 12:52:00 EDT, Suppository, Partial fill upon patient request if the prescription is for a schedule II opioid drug. Start Date: 11/18/21 Status: Orderedbuprenorphine 2 mg sublingual tablet, disintegrating 1 tablet = 2 mg, Sublingual, Daily, pm, 0 Refills, Maintenance, 11/10/21 11:09:00 EDT, Partial fill upon patient request if the prescription is for a schedule II opioid drug. Start Date: 11/10/21 Status: OrderedCardizem LA 180 mg/24 hours oral tablet, extended release 1 tablet = 180 mg, By Mouth, Daily, Maintenance, 02/05/21 13:05:00 EDT Start Date: 02/05/21 Status: Orderedcephalexin monohydrate 500 mg oral capsule 1 capsule = 500 mg, By Mouth, 4 times a day, for 10 days, # 40 capsule, 0 Refills, Acute 05/11/22 13:08:00 EDT, 05/01/22 13:08:00 EDT, Capsule, [facility]/pharmacy #[id number], Partial fill upon patient request if the prescription is for a schedule II opioid drug.... Start Date: 05/01/22 Stop Date: 05/11/22 Status: OrderedclonazePAM 0.5 mg oral tablet 1 tablet = 0.5 mg, By Mouth, Daily, PRN Anxiety, # 3 tablet, 0 Refills, Maintenance, 11/17/21 9:43:00 EDT, Tablet, Partial fill upon patient request if the prescription is for a schedule II opioid drug. Start Date: 11/17/21 Stop Date: 11/20/21 Status: OrderedDilaudid 2 mg oral tablet 2 tablet = 4 mg, By Mouth, Every 4 hours, PRN for pain, 0 Refills, Maintenance, 05/04/22 20:01:00 EDT, Tablet, Partial fill upon patient request if the prescription is for a schedule II opioid drug. Start Date: 05/04/22 Status: OrderedDiltiazem 0 Refills, Maintenance, 05/01/22 12:34:00 EDT, Partial fill upon patient request if the prescriptionis for a schedule II opioid drug. Start Date: 05/01/22 Status: OrderedDocusate Sodium Capsule 100 mg, 1, capsule, By Mouth, 2 times a day, Refills 0, Maintenance, 11/18/21 12:52:00 EDT, Partial fill upon patient request if the prescription is for a schedule II opioid drug. Start Date: 11/18/21 Status: Ordereddoxycycline hyclate 100 mg oral capsule 1 capsule = 100 mg, By Mouth, 2 times a day, for 10 days, # 20 capsule, 0 Refills, Acute 05/11/22 13:08:00 EDT, 05/01/22 13:08:00 EDT, Capsule, [facility] #[id number], Partial fill upon patient request if the prescription is for a schedule II opioid drug.... Start Date: 05/01/22 Stop Date: 05/11/22 Status: Orderedfurosemide 40 mg oral tablet 40 mg, 1, tablet, By Mouth, Daily, Refills 0, Maintenance, 11/07/20 13:03:00 EDT Start Date: 11/07/20 Status: Orderedlisinopril 20 mg oral tablet 20 mg, 1, tablet, By Mouth, Daily, # 30 tablet, Refills 0, Tot. Refills 0, Maintenance, 09/24/21 7:37:00 EST, Route to Pharmacy Electronically, [facility]/pharmacy #[id number], Partial fill upon patient request if the prescription is for a schedule II opioid drug.... Start Date: 09/24/21 Status: Orderedmeloxicam 7.5 mg oral tablet 1 tablet = 7.5 mg, By Mouth, Daily, # 30 tablet, 0 Refills, Maintenance, 04/17/22 18:00:00 EDT, Tablet, [id number], Partial fill upon patient request if the prescription is for a schedule II opioid drug., 158, cm, 04/17/22 16:11:00 EDT, Height... Start Date: 04/17/22 Status: OrderedMilk of Magnesia Liquid 30 mL, [...] II opioid drug. Start Date: 11/18/21 Status: Orderednystatin topical [id number] u/gm powder See Instructions, APPLY TO AFFECTED AREA TWICE A DAY TO THE SKIN FOLDS NEEDED, # 30 Gm, 0 Refills, [id number], 15, APPLY TO AFFECTED AREA TWICE A DAY TO THE SKIN FOLDS NEEDED, 155, cm, 06/03/21 10:30:00 EST, Height, 111.36, kg, 04/07/21 11:... Start Date: 09/30/21 Status: Orderedomeprazole 20 mg oral delayed release tablet 1 tablet = 20 mg, By Mouth, Daily, # 30 tablet, 0 Refills, Maintenance, 04/17/22 18:01:00 EDT, CR Tablet, [facility]/pharmacy #[id number], Partial fill upon patient request if the prescription is for a schedule II opioid drug., 158, cm, 04/17/22 16:11:00 EDT, Heig... Start Date: 04/17/22 Status: OrderedOxycodone = 30 mg, By Mouth, Every 4 hours, PRN Pain , Severe, 0 Refills, Maintenance, 05/04/22 19:58:00 EDT, Partial fill upon patient request if the prescription is for a schedule II opioid drug. Start Date: 05/04/22 Status: Orderedpantoprazole 20 mg oral delayed release tablet 1 tablet = 20 mg, By Mouth, Daily, # 30 tablet, 0 Refills, Maintenance, 09/24/21 10:39:00 EST, CR Tablet Start Date: 09/24/21 Status: Orderedtheophylline 400 mg/24 hours oral tablet, extended release [...] obesity Confirmed Active Sleep apnea Confirmed Active Vital Signs Most recent to oldest [Reference Range]: 1 Height 158 cm (05/01/22 12:32 PM) Oxygen Saturation [94-100 %] 100 % (05/01/22 12:32 PM) Pulse Rate [55-90 bpm] 64 bpm (05/01/22 12:32 PM) Blood Pressure [90-138/55-84 mm Hg] 162/84 mm Hg *H* (05/01/22 12:32 PM) Respiratory Rate [16-30 br/min] 16 br/min (05/01/22 12:32 PM) Temperature [96.8-100.4 DegF] 97.5 DegF (05/01/22 12:32 PM) Mode of Delivery (Oxygen) Room air (05/01/22 12:32 PM) Blood pressure sites Arm, right (05/01/22 12:32 PM) Temperature Route Temporal (05/01/22 12:32 PM) Social History Social History Type Response Smoking Status Former smoker, quit more kar n 30 days ago; Other: quit x 1 yr; 0.5-1ppd x 30 yrs; entered on: 05/22/21 Sex Patient Care team information PersonnelName: Annemarie Alfred MD Address: Address: [address] [place] [address], [place] [address]
--- OUTSIDE RECORDS SUMMARY | 2022-05-22 01:11 | XMS_ITS ---
:1960 Author Care Team Providers Name Role Phone DAY BROOK () OTHER [phone] Allergies Code Code System Name Reaction Severity [...] Chronic Obstructive Lung Disease Active 03/30/2019 ? [id number] Respiratory Failure Active 03/30/2019 ? Crohn's Disease [...]
--- OUTSIDE RECORDS SUMMARY | 2022-05-22 01:11 | XMS_ITS | Continuity of Care Document ---
:1960 Author Organization [facility] Address [address] [place] [address]- Care Team Providers Name Role Phone Annemarie Alfred MD Primary Care Physician Encounter [facility] Date(s): 04/17/22 - 05/17/22 [facility] [address] [place] [address]- Attending Physician: Bethany Smith Admitting Physician: Admtr, [id number] Referring Physician: Admtr, [id number] Allergies, Adverse Reactions, Alerts Substance Reaction Severity [...] 0 Refills, Maintenance, 05/14/22 16:10:00 EDT, Tablet, [facility], Partial fill upon patient request if the prescription is for a schedule II opioid drug., 156, cm, 05/14/22 15:10:00... Start Date: 05/14/22 Status: Orderedaspirin 81 mg oral delayed release tablet 81 mg, By Mouth, Daily, # 30 tablet, Refills 0, Tot. Refills 0, Maintenance, 05/14/22 16:09:00 EDT, Route to Pharmacy Electronically, [facility], Partial fill upon patient request if the prescription is for a schedule II opioid drug., 15... Start Date: 05/14/22 Status: Orderedatorvastatin 80 mg oral tablet 1 tablet = 80 mg, By Mouth, Daily at bedtime, # 30 tablet, 0 Refills, Maintenance, 05/14/22 16:09:00EDT, Tablet[facility], Partial fill upon patient request if [...] 05/14/22 16:09:00 EDT, Route to Pharmacy Electronically, [facility], Partial fill upon patient request if the prescription is for a schedul... Start Date: 05/14/22 Status: OrderedDiltiazem 0 Refills, Maintenance, 05/01/22 12:34:00 [...] 06/15/22 14:07:00 EST, 05/14/22 14:05:00 EDT, Tablet, [facility], Partial fill upon patient request if the prescription is for a schedule II opioid drug., 156, cm, ... Start Date: 05/14/22 Stop Date: 06/15/22 Status: Orderedferrous sulfate 325 mg oral enteric coated tablet 325 mg, By Mouth, Every Wednesday, Wednesday and Wednesday, # 30 tablet, Refills 0, Tot. Refills 0, Maintenance, 05/14/22 16:09:00 EDT, Route to Pharmacy Electronically, [facility], Partial fill upon patient [...] drug. Start Date: 05/14/22 Status: Orderednystatin topical [id number] u/gm powder See Instructions, APPLY TO AFFECTED AREA TWICE A DAY TO THE SKIN FOLDS NEEDED, # 30 Gm, 0 Refills, [id number], 15, APPLY TO AFFECTED AREA TWICE A DAY TO THE SKIN FOLDS NEEDED, 155, cm, 06/03/21 10:30:00 EST, Height, 111.36, kg, 04/07/21 11:... Start Date: 09/30/21 Status: Orderedomeprazole 20 mg oral delayed release tablet 1 tablet = 20 mg, By Mouth, Daily, # 30 tablet, 0 Refills, Maintenance, 04/17/22 18:01:00 EDT, CR Tablet, [facility]/pharmacy #[id number], Partial fill upon patient request if the prescription is for a schedule II opioid drug., 158, cm, 04/17/22 16:11:00 EDT, Heig... Start Date: 04/17/22 Status: Orderedtheophylline 400 mg/24 hours oral tablet, [...] obesity Confirmed Active Sleep apnea Confirmed Active Social History Social History Type Response Smoking Status Former smoker, quit more kar n 30 days ago; Other: quit x 1 yr; 0.5-1ppd x 30 yrs; entered on: 05/22/21 Sex Patient Care team information PersonnelName: Tima ORDAZ , Annemarie Slater Address: Address: [address] [place] [id number]
[2022-05-22] MEDS: HYDROmorphone HCl 1 MG/ML SYRINGE IVPUSH (01:41)
[2022-05-22] MEDS: Piperacillin Sodium/Tazobactam 4.5 GM in 0.9 % Sodium Chloride 100 ML IV (01:42)
[2022-05-22] MEDS: ondansetron HCL 4 MG/2 ML VIAL IVPUSH (01:42)
[2022-05-22] MEDS: 0.9 % Sodium Chloride 1,000 ML 999 ML IV (01:42)
[2022-05-22 01:44] LABS: MANUAL DIFF FLAG NO
[2022-05-22 01:45] LABS: Basophils Absolute Auto 0.1 X10*3/uL (0.0-0.2); Basophils Percent Auto 0.8 % (0-2); Eosinophils Absolute Auto 0.5 X10*3/uL (0.0-0.4); Eosinophils Percent Auto 5.5 % (0-4); Hematocrit 28.4 % (37.0-47.0); Hemoglobin 8.2 g/dl (12.0-16.0); Imm Gran Abs Auto 0.02 X10*3/uL (0.00-0.03); Imm Gran Pct Auto 0.2 % (0.0-0.4); Lymphocytes Absolute Auto 1.5 X10*3/uL (1.2-4.9); Lymphocytes Percent Auto 18.2 % (20-40); Mean Corpuscular HGB Conc 28.9 g/dl (31.0-35.0); Mean Corpuscular Hemoglobin 22.7 pg (27.0-33.0); Mean Corpuscular Volume 78.5 fL (80.0-98.0); Mean Platelet Volume 9.8 fL (9.4-12.3); Monocytes Absolute Auto 0.8 X10*3/uL (0.1-1.2); Monocytes Percent Auto 9.8 % (2-11); Neutrophils Absolute Auto 5.4 x10*3/uL (2.0-8.3); Neutrophils Percent Auto 65.5 % (45-73); Platelet Count 282 X10*3/uL (160-400); Red Blood Count 3.62 X10*6/uL (4.20-5.50); Red Cell Distribution Width 18.2 % (11.0-16.0); White Blood Count 8.3 X10*3/uL (4.8-10.8)
[2022-05-22 01:57] LABS: COVID-19 Test Negative (Negative); Lactic Acid 0.8 mmol/L (0.5-2.0)
[2022-05-22 02:05] LABS: Alanine Aminotransferase < 6 U/L (0-31); Albumin Level 3.5 g/dL (3.5-5.0); Alkaline Phosphatase 116 U/L (39-117); Anion Gap 14 (12-20); Aspartate Amino Transferase 9 U/L (5-31); Bilirubin Total < 0.2 mg/dL (0.0-1.0); Blood Urea Nitrogen 31 mg/dL (9-16); Calcium 8.9 mg/dL (8.4-10.2); Carbon Dioxide 39 mmol/L (22-29); Chloride 95 mmol/L (96-108); Creatinine Clr Calc Pharmacy 53.8; Estimated Glomerular Filt Rate 45; Glucose Random 105 mg/dL (60-115); Potassium 4.2 mmol/L (3.3-5.1); Sodium 144 mmol/L (135-145); Total Protein 6.7 g/dL (6.5-8.0)
[2022-05-22] MEDS: HYDROmorphone HCl 2 MG/ML VIAL IVPUSH (03:39)
[2022-05-22 03:42] LABS: B Type Natriuretic Peptide 96 pg/mL (<100)
--- NOTE | 2022-05-22 04:00 | PC.NURSE ---
discussion with patient, ER MD, and MD hospitalist for plan for patient to be discharged rather than admitted - ruled out heart failure and cellulitis/infection - pt verbalizes she will follow up with pcp for further evaluation of leg edema.
== END 2022-05-22 04:52 | disposition home or self-care (01) ==
PROVIDERS: Student in an Organized Health Care Education/Training Program; Emergency Provider Internal Medicine
DX: R60.0 Localized edema (principal); M79.605 Pain in left leg; M79.604 Pain in right leg; R06.02 Shortness of breath; Z20.822 Contact with and (suspected) exposure to COVID-19; Z79.899 Other long term (current) drug therapy
CPT/HCPCS: 36415; 71045; 80053; 83605; 83880; 85025; 87040; 87635; 96361; 96374; 96375; 99283; 99284; J1170; J2405; J2543; J3370

== ENCOUNTER → 2023-01-18 11:09 | Outpatient (BNVA) | payer MEDICARE, MEDICAID, SELFPAY | PROVIDERS: Visit Provider Surgery | DX: E65 Localized adiposity (principal); J44.9 Chronic obstructive pulmonary disease, unspecified; Z99.81 Dependence on supplemental oxygen; Z87.81 Personal history of (healed) traumatic fracture | CPT/HCPCS: 99202 ==

== ENCOUNTER → 2023-03-04 12:12 | Outpatient (BNV) | payer MEDICARE, MEDICAID, SELFPAY | PROVIDERS: Visit Provider Psychiatry & Neurology Psychiatry | DX: F41.9 Anxiety disorder, unspecified (principal); F43.10 Post-traumatic stress disorder, unspecified | CPT/HCPCS: 90792; 99212; 99213 ==

== ENCOUNTER 2023-09-28 13:31 | Outpatient (RCR) | payer OTHER, MEDICARE, MEDICAID, SELFPAY | END 2024-06-02 14:57 | disposition home or self-care (01) | LOC: HO.WCC 13:31 | PROVIDERS: Visit Provider Physician Assistant | DX: L97.822 Non-pressure chronic ulcer of other part of left lower leg with fat layer exposed (principal); L97.119 Non-pressure chronic ulcer of right thigh with unspecified severity; I73.9 Peripheral vascular disease, unspecified; I87.2 Venous insufficiency (chronic) (peripheral); I10 Essential (primary) hypertension; J44.9 Chronic obstructive pulmonary disease, unspecified; I73.00 Raynaud's syndrome without gangrene; Z99.81 Dependence on supplemental oxygen; Z87.891 Personal history of nicotine dependence; Z86.19 Personal history of other infectious and parasitic diseases; Z79.01 Long term (current) use of anticoagulants | CPT/HCPCS: 11042; 11045; 15271; 15272; 87070; 87073; 87077; 87186; 87205; 97597; 97606; Q4101 ==

== ENCOUNTER 2023-10-14 12:35 | Outpatient (AMB) | payer OTHER, SELFPAY ==
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
[2023-10-14 12:56] VITALS: BMI 50.6
== END 2023-10-14 13:16 | disposition home or self-care (01) ==
PROVIDERS: Visit Provider Surgery
DX: S81.809A Unspecified open wound, unspecified lower leg, initial encounter (principal)
CPT/HCPCS: 99203

== ENCOUNTER → 2023-10-14 12:35 | Outpatient (BNVA) | payer OTHER, SELFPAY | PROVIDERS: Visit Provider Surgery ==

== ENCOUNTER 2023-11-15 13:17 | Outpatient (AMB) | payer MEDICARE, MEDICAID, SELFPAY ==
[2023-11-15 13:17] VITALS: BP 150/70; PULSE 70; TEMP 36.4; O2SAT 95; BMI 52.0
--- NOTE | 2023-11-15 13:17 | AM.OFFWIN_ITS ---
Intake Vital Signs 11/15/23 13:17 Height 5 ft 1 in Weight 275 lb BMI 52.0 BP 150/70 H Blood Pressure Location Lt brachial Position Sitting Pulse 70 Pulse Source Pulse Oximeter Temp 97.5 F Temp Source Temporal Artery Scan Pulse Oximetry (%) 95 Oxygen Delivery Method Room Air Intake Visit Reasons: EP UTI blood clots when urinating Intake Note: pt is here todsy for UTI blood clots when urinating started yesterday Patient Tobacco Use Status: Former Tobacco user Quit Date: 2018 Allergies gabapentin Allergy (Mild, Verified 11/17/23 07:00) Anxiety morphine [MORPHINE] Allergy (Unknown, Verified 11/17/23 07:00) ANAPHALAXIS, anaphylaxis propofol [From Diprivan] Allergy (Verified 11/17/23 07:00) Anaphylaxis Medication List - Last Reconciled 11/17/23 by Good Young MD atorvastatin 80 mg PO BEDTIME buprenorphine HCl 2 mg sublingual TID ciprofloxacin HCl 250 mg PO BID clonazepam (Klonopin) 0.5 mg PO DAILY PRN 3 days diltiazem HCl CD 180 mg PO DAILY [id number] 100-62.5-25 mcg (Trelegy Ellipta) 1 ea inhalation DAILY lisinopril 40 mg PO DAILY omeprazole 1 cap PO DAILY@0630 oxycodone 10 mg PO Q4H PRN sulfamethoxazole-trimethoprim 800-160 mg (Bactrim DS) 1 tab PO Q12H temazepam 30 mg PO BEDTIME theophylline ER (Roque-24) 400 mg PO DAILY Do you need a note to return to daycare/school/sports/work: No HPI EP UTI blood clots when urinating HPI Details 63 yr old female presents to the office for a sick visit. Reports sx of increasing burning on urination, clots in urine and increased frequency of urination. Minimal back pain. Patient takes abx for MRSA. [facility] Medical History Open wound of lower extremity COPD (chronic obstructive pulmonary disease) Femur fracture Crohn's colitis Immobility Morbid obesity due to excess calories Adopted Femur fracture, right Closed tibia fracture Acute on chronic respiratory failure with hypoxia and hypercapnia Wound of left lower extremity Nonrheumatic mitral (valve) stenosis Acute on chronic right heart failure Paroxysmal atrial fibrillation Dyspnea ALEKSEY treated with BiPAP Hypoventilation associated with obesity Pickwickian syndrome Chronic hypercapnic respiratory failure Opioid use disorder Surgical History Hx of cholecystectomy History of open reduction and internal fixation (ORIF) procedure Status post open reduction and internal fixation (ORIF) of fracture Recent surgical procedure on lower extremity Family History Other Adopted Social History Household Members: Spouse, Family and Children Household Members Other:: , Hoa. Daughter Carolyn, 21. Daughter's Boyfriend, 22. Neice, 21 Housing: House Do you presently have visiting nurse or other home services: No Alcohol intake: former Year quit: 1989 Patient Tobacco Use Status: Former Tobacco user Quit Date: 2019 Years Smoked: 25 Second Hand Smoke Exposure: No Advance Directives Date on File: 12/16/20 service: Yes Current occupational status: disabled Physical Exam Vital Signs: Last Vital Signs Temp 97.5 F 11/15/23 13:17 Pulse 70 11/15/23 13:17 BP 150/70 H 11/15/23 13:17 Pulse Ox 95 11/15/23 13:17 Oxygen Delivery Method Room Air 11/15/23 13:17 BMI result Body Mass Index 52.0 Other: No CVA tenderness. No suprapubic discomfirt. Assessment & Plan Assessment & Plan (1) Urinary tract infection: Code(s): N39.0 - Urinary tract infection, site not specified Plan: Urinalysis revd. Antibiotic called in. Increased fluid intake. Medications: New ciprofloxacin HCl 250 mg PO BID 10 tabs 0RF Coding Level of Care Code Est Pt Level 3 (49763) Diagnoses Urinary tract infection N39.0
--- OUTSIDE RECORDS SUMMARY | 2023-11-15 13:18 | XMS_ITS | Continuity of Care Document ---
Author Organization [facility] Address [address] [place] [address] [address] [place] [address]- Care Team Providers Care Mold Worker Name Role Phone Annemarie Alfred MD Primary Care Physician [phone] Encounter [facility] Date(s): 10/15/22 - 11/14/[address] [place], [place] [address] Attending Physician: Admtr, Ar8 Admitting Physician: Admtr, Ar8 Referring Physician: Admtr, Ar8 Allergies, Adverse Reactions, Alerts Substance Reaction Severity Status morphine anaphylaxis Severe Active Tomatoes Active propofol anaphylaxis Active gabapentin tardive dyskenesia Active Immunizations Given and Recorded Vaccine Date Status Refusal Reason influenza virus vaccine, inactivated 05/05/22 Give n influenza virus vaccine, inactivated 04/26/19 Terrell rded influenza virus vaccine, inactivated 06/02/18 Terrell rded influenza virus vaccine, inactivated 05/20/17 Terrell rded SARS-CoV-2 (COVID-19) mRNA-1273 vaccine 07/03/21 R ecorded SARS-CoV-2 (COVID-19) mRNA-1273 vaccine 01/02/21 R ecorded SARS-CoV-2 (COVID-19) mRNA-1273 vaccine 10/04/20 R ecorded pneumococcal 13-valent vaccine 06/02/18 Recorded Tetanus-Diphth Toxoids, Adult (oldterm) 03/21/18 G iven Medications acetaminophen 500 mg oral capsule 1 capsule = 500 mg, By Mouth, 2 times a day, 0 Refills, Maintenance, 09/24/21 10:36:00 EST, Partialfill upon patient request if the prescription is for a schedule II opioid drug. Start Date: 09/24/21 Status: Ordered apixaban 5 mg oral tablet 1 tablet = 5 mg, By Mouth, 2 times a day, # 60 tablet, 0 Refills, Maintenance, 05/14/22 16:10:00 EDT, Tablet, [facility], Partial fill upon patient request if the prescription is for a schedule II opioid drug., 156, cm, 05/14/22 15:10:00... Start Date: 05/14/22 Status: Ordered aspirin 81 mg oral delayed release tablet 81 mg, By Mouth, Daily, # 30 tablet, Refills 0, Tot. Refills 0, Maintenance, 05/14/22 16:09:00 EDT,Route to Pharmacy Electronically, [facility], Partial fill upon patient request if the prescription is for a schedule II opioid drug., 15... Start Date: 05/14/22 Status: Ordered atorvastatin 80 mg oral tablet 1 tablet = 80 mg, By Mouth, Daily at bedtime, # 30 tablet, 0 Refills, Maintenance, 05/14/22 16:09:00 EDT, Tablet, [facility], Partial fill upon patient request if the prescription is for a schedule II opioid drug., 156, cm, 05/14/22 15:1... Start Date: 05/14/22 Status: Ordered bisacodyl 10 mg rectal suppository 1 supp = 10 mg, Rectally, Daily, PRN Constipation, 0 Refills, Maintenance, 11/18/21 12:52:00 EDT, Suppository, Partial fill upon patient request if the prescription is for a schedule II opioid drug. Start Date: 11/18/21 Status: Ordered Cardizem LA 180 mg/24 hours oral tablet, extended release 1 tablet = 180 mg, By Mouth, Daily, Maintenance, 02/05/21 13:05:00 EDT Start Date: 02/05/21 Status: Ordered clonazePAM 0.5 mg oral tablet 1 tablet = 0.5 mg, By Mouth, Daily, PRN Anxiety, # 3 tablet, 0 Refills, Maintenance, 11/17/21 9:43:00 EDT, Tablet, Partial fill upon patient request if the prescription is for a schedule II opioid drug. Start Date: 11/17/21 Stop Date: 11/20/21 Status: Ordered Coreg 6.25 mg oral tablet 6.25 mg, 1, tablet, By Mouth, 2 times a day, # 60 tablet, Refills 0, Tot. Refills 0, Maintenance, 05/14/22 16:09:00 EDT, Route to Pharmacy Electronically, [facility], Partial fill upon patient request if the prescription is for a schedul... Start Date: 05/14/22 Status: Ordered Diltiazem 0 Refills, Maintenance, 05/01/22 12:34:00 EDT, Partial fill upon patient request if the prescription is for a schedule II opioid drug. Start Date: 05/01/22 Status: Ordered Docusate Sodium Capsule 100 mg, 1, capsule, By Mouth, 2 times a day, Refills 0, Maintenance, 11/18/21 12:52:00 EDT, Partialfill upon patient request if the prescription is for a schedule II opioid drug. Start Date: 11/18/21 Status: Ordered doxycycline hyclate 100 mg oral tablet See Instructions, TAKE 1 CAPSULE BY MOUTH EVERY 12 HOURS,X4 WEEK(S), # 56 tablet, 0 Refills, Maintenance, 08/04/22 9:05:00 EST, [facility], 156, cm, 07/07/22 14:21:00 EST, Height, 116, kg, 05/04/22 19:13:00 EDT, Dry Weight Start Date: 08/04/22 Status: Ordered ferrous sulfate 325 mg oral enteric coated tablet 325 mg, By Mouth, Every Wednesday, Wednesday and Wednesday, # 30 tablet, Refills 0, Tot. Refills 0, Maintenance, 05/14/22 16:09:00 EDT, Route to Pharmacy Electronically, [facility], Partial fill upon patient request if the prescription is for... Start Date: 05/14/22 Status: Ordered Milk of Magnesia Liquid 30 mL, By Mouth, 2 times a day, PRN Constipation, 0 Refills, Maintenance, 11/18/21 12:52:00 EDT, Suspension, Partial fill upon patient request if the prescription is for a schedule II opioid drug. Start Date: 11/18/21 Status: Ordered MiraLax Powder 1 pack/packet = 17 Gm, By Mouth, Daily, 0 Refills, Maintenance, 11/18/21 12:52:00 EDT, Powder, Partial fill upon patient request if the prescription is for a schedule II opioid drug. Start Date: 11/18/21 Status: Ordered nitroglycerin 0.4 mg sublingual tablet 1 tablet = 0.4 mg, Sublingual, Every 5 minutes, PRN Chest Pain, 0 Refills, Maintenance, 05/14/22 7:11:00 EDT, Tablet, Partial fill upon patient request if the prescription is for a schedule II opioiddrug. Start Date: 05/14/22 Status: Ordered nystatin topical 801709 u/gm powder See Instructions, APPLY TO AFFECTED AREA TWICE A DAY TO THE SKIN FOLDS NEEDED, # 30 Gm, 0 Refills, [facility], 15, APPLY TO AFFECTED AREA TWICE A DAY TO THE SKIN FOLDS NEEDED, 155, cm, 06/03/21 10:30:00 EST, Height, 111.36, kg, 04/07/21 11:... Start Date: 09/30/21 Status: Ordered omeprazole 20 mg oral delayed release tablet 1 tablet = 20 mg, By Mouth, Daily, # 30 tablet, 0 Refills, Maintenance, 04/17/22 18:01:00 EDT, CR Tablet, [id number], Partial fill upon patient request if the prescription is for a schedule II opioid drug., 158, cm, 04/17/22 16:11:00 EDT, [facility]... Start Date: 04/17/22 Status: Ordered sulfamethoxazole-trimethoprim 800 mg-160 mg oral tablet 1 tablet, By Mouth, Every 12 hours, for 90 days, # 180 tablet, 3 Refills, Acute 10/03/23 10:49:00 EDT, 10/08/22 10:49:00 EDT, Tablet, [facility][id number], Partial fill upon patient request if the prescription is for a schedule II opioid drug., 1 tablet... Start Date: 10/08/22 Stop Date: 10/03/23 Status: Ordered theophylline 400 mg/24 hours oral tablet, extended release 1 tablet = 400 mg, By Mouth, Daily, Maintenance, 02/05/21 13:06:00 EDT, ER Tablet Start Date: 02/05/21 Status: Ordered Trelegy Ellipta 200 mcg-62.5 mcg-25 mcg/inh inhalation powder 1 puffs, Inhalation, Daily, at the same time every day, 0 Refills, Maintenance, 09/24/21 10:40:00 EST, Powder, Partial fill upon patient request if the prescription is for a schedule II opioid drug. Start Date: 09/24/21 Status: Ordered Problem List Condition Confirmation Course Effective Dates Status H ealth Status Informant Atrial fibrillation Confirmed Active Bacteremia due to Gram-positive bacteria Confirmed Active Chronic pain Confirmed Active Obesity hypoventilation syndrome Confirmed Active Bone fracture Confirmed Active HTN (hypertension) Confirmed Active Respiratory failure with hypoxia Confirmed Active Hardware complicating wound infection Confirmed Active Enterococcus faecalis infection Confirmed Active Open leg wound/ LLE Confirmed Active Opioid use disorder, severe, in sustained remission Confirmed Active Metabolic alkalosis with respiratory acidosis Confirmed Active Severe obesity Confirmed Active Sleep apnea Confirmed Active Social History Social History Type Response Smoking Status Former smoker, quit more than 30 days ago; Other: quit x 1 yr; 0.5-1ppd x 30 yrs; entered on: 05/22/21 Sex Patient Care team information Care Team Personnel Name: Thomas Lomax RN Position: [facility] ED RN W/OE and Tasks Member Role: Primary Care Nurse Name: Mandy Hightower RN Position: [facility] RN Member Role: Primary Care Nurse Name: Akosua Moses RN Position: [facility] RN Member Role: Primary Care Nurse Name: Michelle Zambrano RN Position: [facility] RN Member Role: Primary Care Nurse Name: Stacie Ortiz RN Position: [facility] RN Member Role: Primary Care Nurse Name: Nicole Alvarado RN Position: [facility] RN Member Role: Primary Care Nurse Name: Pau Olmedo RN Position: [facility] RN Member Role: Primary Care Nurse Name: Rodrigo Noel RN Position: [facility] RN Member Role: Primary Care Nurse Name: Ximena Constantino RN Position: [facility] RN Member Role: Primary Care Nurse Name: Kylie Wilde RN Position: [facility] RN Member Role: Primary Care Nurse Name: Domenica Ramirez RN Position: [facility] RN Member Role: Primary Care Nurse Name: Klarissa Ko RN Position: [facility] RN Member Role: Primary Care Nurse Name: Alma Lott RN Position: [facility] RN Member Role: Primary Care Nurse Name: Annemarie Alfred MD Position: Reference Physician Member Role: PCP Address: Address: [address] [place] [id number] Name: Caroline Shirley RN Position: [facility] RN Member Role: Primary Care Nurse Name: Tanisha Perez RN Position: [facility] RN Member Role: Primary Care Nurse Name: Chelle Ricardo RN Position: [facility] RN Member Role: Primary Care Nurse Name: Kelsi Kim RN Position: [facility] RN Member Role: Primary Care Nurse Name: Mireya Catherine RN Position: [facility] RN Member Role: Primary Care Nurse Name: Josefina Leonard RN Position: [facility] RN Member Role: Primary Care Nurse Name: Prem Barrera MD Position: [facility] Renal MD Member Role: Lifetime Consulting Physician Address: Address: [address] [place] [address] [address] [facility] [address] Name: Lata Hernandez RN Position: [facility] [facility] Member Role: Primary Care Nurse Name: Atul Molina MD Position: [facility] Renal MD Member Role: Lifetime Consulting Physician Address: Address: [address] [place] [address] [facility] [address] Name: Gema Jean Baptiste RN Position: [facility] RN Member Role: Primary Care Nurse Name: Esther Miller RN Position: [facility] RN Member Role: Primary Care Nurse Name: Siena Coleman RN Position: [facility] RN Member Role: Primary Care Nurse Name: Julia Alex RN Position: [facility] RN Member Role: Primary Care Nurse Name: Brandi Martinez RN Position: [facility] RN Member Role: Primary Care Nurse Name: Joann Moore RN Position: [facility] RN Member Role: Primary Care Nurse Name: Ramya Cook RN Position: [facility] Member Role: Primary Care Nurse Care Team Related Persons Name: HARVEY CASAS Address: home [address] [place] [address]
--- OUTSIDE RECORDS SUMMARY | 2023-11-15 13:18 | XMS_ITS | Continuity of Care Document ---
Author Organization [facility] Address [address] [place] [address]- Care Team Providers Care Forensic Science Technician Name Role Phone Annemarie Alfred MD Primary Care Physician [phone] Encounter [facility] Date(s): 01/21/23 - 02/20/23 [facility] [address] [place] [id number] Allergies, Adverse Reactions, Alerts Substance Reaction Severity [...] 0 Refills, Maintenance, 05/14/22 16:10:00 EDT, Tablet, [facility], Partial fill upon patient request if the prescription is for a schedule II opioid drug., 156, cm, 05/14/22 15:10:00... Start Date: 05/14/22 Status: Ordered aspirin 81 mg oral delayed release tablet 81 mg, By Mouth, Daily, # 30 tablet, Refills 0, Tot. Refills 0, Maintenance, 05/14/22 16:09:00 EDT,Route to Pharmacy Electronically, [facility], Partial fill upon patient request if the prescription is for a schedule II opioid drug., 15... Start Date: 05/14/22 Status: Ordered atorvastatin 80 mg oral tablet 1 tablet = 80 mg, By Mouth, Daily at bedtime, # 30 tablet, 0 Refills, Maintenance, 05/14/22 16:09:00 EDT, Tablet, [facility] 3, Partial fill upon patient request [...] 05/14/22 16:09:00 EDT, Route to Pharmacy Electronically, [facility] 3, Partial fill upon patient [...] tablet, 0 Refills, Maintenance, 08/04/22 9:05:00 EST, [id number], 156, cm, 07/07/22 14:21:00 EST, Height, 116, kg, 05/04/22 19:13:00 EDT, Dry Weight Start Date: 08/04/22 Status: Ordered ferrous sulfate 325 mg oral enteric coated tablet 325 mg, By Mouth, Every Wednesday, Wednesday and Wednesday, # 30 tablet, Refills 0, Tot. Refills 0, Maintenance, 05/14/22 16:09:00 EDT, Route to Pharmacy Electronically, [facility] 3, Partial fill upon patient [...] Start Date: 05/14/22 Status: Ordered nystatin topical [id number] u/gm powder See Instructions, APPLY TO AFFECTED AREA TWICE A DAY TO THE SKIN FOLDS NEEDED, # 30 Gm, 0 Refills, [facility], 15, APPLY TO AFFECTED AREA TWICE A DAY TO THE SKIN FOLDS NEEDED, 155, cm, 06/03/21 10:30:00 EST, Height, 111.36, kg, 04/07/21 11:... Start Date: 09/30/21 Status: Ordered omeprazole 20 mg oral delayed release tablet 1 tablet = 20 mg, By Mouth, Daily, # 30 tablet, 0 Refills, Maintenance, 04/17/22 18:01:00 EDT, CR Tablet, [id number], Partial fill upon patient request if the prescription is for a schedule II opioid drug., 158, cm, 04/17/22 16:11:00 EDT, [facility]... Start Date: 04/17/22 Status: Ordered sulfamethoxazole-trimethoprim 800 mg-160 mg oral tablet 1 tablet, By Mouth, Every 12 hours, for 90 days, # 180 tablet, 3 Refills, Acute 10/03/23 10:49:00 EDT, 10/08/22 10:49:00 EDT, Tablet, [facility][id number], Partial fill upon patient request if [...] Team Personnel Name: Thomas Lomax RN Position: [facility] ED RN W/OE and Tasks Member Role: Primary Care Nurse Name: Mandy Hightower RN Position: [facility] RN Member Role: Primary Care Nurse Name: Akosua Moses RN Position: [facility] RN Member Role: Primary Care Nurse Name: Michelle Zambrano RN Position: [facility] RN Member Role: Primary Care Nurse Name: Stacie Ortiz RN Position: [facility] SN RN Member Role: Primary Care Nurse Name: Nicole Alvarado RN Position: [facility] RN Member Role: Primary Care Nurse Name: Pau Olmedo RN Position: [facility] RN Member Role: Primary Care Nurse Name: Rodrigo Noel RN Position: [facility] RN Member Role: Primary Care Nurse Name: Ximena Constantino RN Position: [facility] SN RN Member Role: Primary Care Nurse Name: Kylie Wilde RN Position: [facility] RN Member Role: Primary Care Nurse Name: Domenica Ramirez RN Position: [facility] RN Member Role: Primary Care Nurse Name: Klarissa Ko RN Position: [facility] RN Member Role: Primary Care Nurse Name: Alma Lott RN Position: [facility] RN Member Role: Primary Care Nurse Name: Annemarie Alfred MD Position: Reference Physician Member Role: PCP Address: Address: [address] [place] [id number] [place] Name: Caroline Shirley RN Position: [facility] RN Member Role: Primary Care Nurse Name: Tanisha Perez RN Position: [facility] RN Member Role: Primary Care Nurse Name: Chelle Ricardo RN Position: [facility] RN Member Role: Primary Care Nurse Name: Kelsi Kim RN Position: [facility] RN Member Role: Primary Care Nurse Name: Mireya Catherine RN Position: [facility] RN Member Role: Primary Care Nurse Name: Josefina Leonard RN Position: [facility] RN Member Role: Primary Care Nurse Name: Prem Barrera MD Position: [facility] Renal MD Member Role: Lifetime Consulting Physician Address: Address: [address] [place] [address] [address] [facility] [address] Name: Lata Hernandez RN Position: [facility] Occupational Therapist'S Assistant Member Role: Primary Care Nurse Name: Atul Molina MD Position: [facility] Renal MD Member Role: Lifetime Consulting Physician Address: Address: [address] [place] [address] [facility] [address] Name: Gema Jean Baptiste RN Position: [facility] RN Member Role: Primary Care Nurse Name: Etsher Miller RN Position: [facility] RN Member Role: Primary Care Nurse Name: Siena Coleman RN Position: [facility] RN Member Role: Primary Care Nurse Name: Julia Alex RN Position: [facility] RN Member Role: Primary Care Nurse Name: Brandi Martinez RN Position: [facility] RN Member Role: Primary Care Nurse Name: Joann Moore RN Position: [facility] RN Member Role: Primary Care Nurse Name: Ramya Cook RN Position: [facility] Occupational Therapist'S Assistant Member Role: Primary Care Nurse Care Team Related Persons Name: HARVEY CASAS Address: home [address] [place] [address]
--- OUTSIDE RECORDS SUMMARY | 2023-11-15 13:18 | XMS_ITS | Continuity of Care Document ---
Author Organization [facility] Address [address] [place] [id number]- Care Team Providers Care Economics Teacher Name Role Phone Annemarie Alfred MD Primary Care Physician Encounter [facility] Date(s): 05/12/22 - 08/30/22 [facility] [address] [place] [id number] Attending Physician: Boogie Valadez MD Admitting Physician: Boogie Valadez MD Referring Physician: Annemarie Alfred MD Allergies, Adverse Reactions, Alerts Substance Reaction Severity Status morphine anaphylaxis Severe Active gabapentin tardive dyskenesia Active propofol anaphylaxis Active Tomatoes Active Immunizations Given and Recorded [...] 0 Refills, Maintenance, 05/14/22 16:10:00 EDT, Tablet, [facility], Partial fill upon patient request if the prescription is for a schedule II opioid drug., 156, cm, 05/14/22 15:10:00... Start Date: 05/14/22 Status: Ordered aspirin 81 mg oral delayed release tablet 81 mg, By Mouth, Daily, # 30 tablet, Refills 0, Tot. Refills 0, Maintenance, 05/14/22 16:09:00 EDT,Route to Pharmacy Electronically, [facility], Partial fill upon patient request if the prescription is for a schedule II opioid drug., 15... Start Date: 05/14/22 Status: Ordered atorvastatin 80 mg oral tablet 1 tablet = 80 mg, By Mouth, Daily at bedtime, # 30 tablet, 0 Refills, Maintenance, 05/14/22 16:09:00 EDT, Tablet, [facility] 3, Partial fill upon patient request [...] 05/14/22 16:09:00 EDT, Route to Pharmacy Electronically, [facility] 3, Partial fill upon patient request [...] tablet, 0 Refills, Maintenance, 08/04/22 9:05:00 EST, [id number], 156, cm, 07/07/22 14:21:00 EST, Height, 116, kg, 05/04/22 19:13:00 EDT, Dry Weight Start Date: 08/04/22 Status: Ordered ferrous sulfate 325 mg oral enteric coated tablet 325 mg, By Mouth, Every Wednesday, Wednesday and Wednesday, # 30 tablet, Refills 0, Tot. Refills 0, Maintenance, 05/14/22 16:09:00 EDT, Route to Pharmacy Electronically, [facility] 3, Partial fill upon patient request [...] Start Date: 05/14/22 Status: Ordered nystatin topical [id number] u/gm powder See Instructions, APPLY TO AFFECTED AREA TWICE A DAY TO THE SKIN FOLDS NEEDED, # 30 Gm, 0 Refills, [facility] STORE [id number], 15, APPLY TO AFFECTED AREA TWICE A DAY TO THE SKIN FOLDS NEEDED, 155, cm, 06/03/21 10:30:00 EST, Height, 111.36, kg, 04/07/21 11:... Start Date: 09/30/21 Status: Ordered omeprazole 20 mg oral delayed release tablet 1 tablet = 20 mg, By Mouth, Daily, # 30 tablet, 0 Refills, Maintenance, 04/17/22 18:01:00 EDT, CR Tablet, [facility] #[id number], Partial fill upon patient request if the prescription is for a schedule II opioid drug., 158, cm, 04/17/22 16:11:00 EDT, [facility]... Start Date: 04/17/22 Status: Ordered sulfamethoxazole-trimethoprim 800 mg-160 mg oral tablet 1 tablet, By Mouth, Every 12 hours, for 14 days, # 28 tablet, 3 Refills, Acute 10/08/22 10:49:00 EDT, 08/13/22 10:49:00 EST, Tablet, [facility]acy #[id number], Partial fill upon patient request if the prescription is for a schedule II opioid drug., 1 tablet... Start Date: 08/13/22 Stop Date: 10/08/22 Status: Ordered theophylline 400 mg/24 hours oral [...] Team Personnel Name: Thomas Lomax RN Position: [facility] ED RN W/OE and Tasks Member Role: Primary Care Nurse Name: Mandy Hightower RN Position: [facility] RN Member Role: Primary Care Nurse Name: Akosua Moses RN Position: [facility] RN Member Role: Primary Care Nurse Name: Michelle Zambrano RN Position: [facility] RN Member Role: Primary Care Nurse Name: Stacie Ortiz RN Position: [facility] SN RN Member Role: Primary Care Nurse Name: Nicole Alvarado RN Position: [facility] RN Member Role: Primary Care Nurse Name: Pau Olmedo RN Position: [facility] RN Member Role: Primary Care Nurse Name: Rodrigo Noel RN Position: [facility] RN Member Role: Primary Care Nurse Name: Ximena Constantino RN Position: [facility] RN Member Role: Primary Care Nurse Name: Kylie Wilde RN Position: [facility] RN Member Role: Primary Care Nurse Name: Domenica Ramirez RN Position: [facility] RN Member Role: Primary Care Nurse Name: Klarissa Ko RN Position: [facility] RN Member Role: Primary Care Nurse Name: Alma Lott RN Position: [facility] RN Member Role: Primary Care Nurse Name: Annemarie Alfred MD Position: Reference Physician Member Role: PCP Address: Address: [address] [place] [id number] Name: Caroline Shirley RN Position: [facility] RN Member Role: Primary Care Nurse Name: Tanisha Perez RN Position: [facility] RN Member Role: Primary Care Nurse Name: Chelle Ricardo RN Position: [facility] RN Member Role: Primary Care Nurse Name: Kelsi Kim RN Position: [facility] RN Member Role: Primary Care Nurse Name: Mireya Catherine RN Position: [facility] RN Member Role: Primary Care Nurse Name: Josefina Leonard RN Position: [facility] RN Member Role: Primary Care Nurse Name: Prem Barrera MD Position: [facility] Renal MD Member Role: Lifetime Consulting Physician Address: Address: [address] [place] [address] [address] [facility] [address] Name: Leah Silva RN Position: [facility] RN Member Role: Primary Care Nurse Name: Lata Hernandez RN Position: [facility] Grain Mixer Member Role: Primary Care Nurse Name: Atul Molina MD Position: [facility] Renal MD Member Role: Lifetime Consulting Physician Address: Address: [address] [place] [address] [facility] [address] Name: Gema Jean Baptiste RN Position: [facility] RN Member Role: Primary Care Nurse Name: Esther Miller RN Position: [facility] RN Member Role: Primary Care Nurse Name: Siena Coleman RN Position: [facility] RN Member Role: Primary Care Nurse Name: Julia Alex RN Position: [facility] RN Member Role: Primary Care Nurse Name: Brandi Martinez RN Position: [facility] RN Member Role: Primary Care Nurse Name: Joann Moore RN Position: [facility] RN Member Role: Primary Care Nurse Name: Ramya Cook RN Position: [facility] Grain Mixer Member Role: Primary Care Nurse Care Team Related Persons Name: HARVEY CASAS Address: home [address] [place] [address]
--- OUTSIDE RECORDS SUMMARY | 2023-11-15 13:19 | XMS_ITS | Continuity of Care Document ---
Author Organization [facility] Address [address] [place] [id number]- Care Team Providers Care Spectroscopist Name Role Phone Annemarie Alfred MD Primary Care Physician Encounter [facility] Date(s): 07/31/22 - 08/30/22 [facility] Medicine [address] [place] [address] [place] [id number] Attending Physician: Admasim, Bethany Admitting Physician: Admtr, Ar8 Referring Physician: Admtr, [...] 0 Refills, Maintenance, 05/14/22 16:10:00 EDT, Tablet, [facility], Partial fill upon patient request if the prescription is for a schedule II opioid drug., 156, cm, 05/14/22 15:10:00... Start Date: 05/14/22 Status: Ordered aspirin 81 mg oral delayed release tablet 81 mg, By Mouth, Daily, # 30 tablet, Refills 0, Tot. Refills 0, Maintenance, 05/14/22 16:09:00 EDT,Route to Pharmacy Electronically, [facility], Partial fill upon patient request if the prescription is for a schedule II opioid drug., 15... Start Date: 05/14/22 Status: Ordered atorvastatin 80 mg oral tablet 1 tablet = 80 mg, By Mouth, Daily at bedtime, # 30 tablet, 0 Refills, Maintenance, 05/14/22 16:09:00 EDT, Tablet, [facility], Partial fill upon patient request if [...] 05/14/22 16:09:00 EDT, Route to Pharmacy Electronically, [facility], Partial fill upon patient request if [...] tablet, 0 Refills, Maintenance, 08/04/22 9:05:00 EST, [id number], 156, cm, 07/07/22 14:21:00 EST, Height, 116, kg, 05/04/22 19:13:00 EDT, Dry Weight Start Date: 08/04/22 Status: Ordered ferrous sulfate 325 mg oral enteric coated tablet 325 mg, By Mouth, Every Wednesday, Wednesday and Wednesday, # 30 tablet, Refills 0, Tot. Refills 0, Maintenance, 05/14/22 16:09:00 EDT, Route to Pharmacy Electronically, [facility], Partial fill upon patient request if [...] Start Date: 05/14/22 Status: Ordered nystatin topical [id number] u/gm powder See Instructions, APPLY TO AFFECTED AREA TWICE A DAY TO THE SKIN FOLDS NEEDED, # 30 Gm, 0 Refills, [facility] 37760, 15, APPLY TO AFFECTED AREA TWICE A DAY TO THE SKIN FOLDS NEEDED, 155, cm, 06/03/21 10:30:00 EST, Height, 111.36, kg, 04/07/21 11:... Start Date: 09/30/21 Status: Ordered omeprazole 20 mg oral delayed release tablet 1 tablet = 20 mg, By Mouth, Daily, # 30 tablet, 0 Refills, Maintenance, 04/17/22 18:01:00 EDT, CR Tablet, [facility][id number], Partial fill upon patient request if the prescription is for a schedule II opioid drug., 158, cm, 04/17/22 16:11:00 EDT, [facility]... Start Date: 04/17/22 Status: Ordered sulfamethoxazole-trimethoprim 800 mg-160 mg oral tablet 1 tablet, By Mouth, Every 12 hours, for 14 days, # 28 tablet, 3 Refills, Acute 10/08/22 10:49:00 EDT, 08/13/22 10:49:00 EST, Tablet, [facility][id number], Partial fill upon patient request [...] Team Personnel Name: Thomas Lomax RN Position: [facility] ED RN W/OE and Tasks Member Role: Primary Care Nurse Name: Mandy Hightower RN Position: [facility] RN Member Role: Primary Care Nurse Name: Akosua Moses RN Position: [facility] RN Member Role: Primary Care Nurse Name: Michelle Zambrano RN Position: [facility] RN Member Role: Primary Care Nurse Name: Stacie Ortiz RN Position: [facility] SN RN Member Role: Primary Care Nurse Name: Nicole Alvarado RN Position: [facility] RN Member Role: Primary Care Nurse Name: Pau Olmedo RN Position: [facility] RN Member Role: Primary Care Nurse Name: Rodrigo Noel RN Position: [facility] RN Member Role: Primary Care Nurse Name: Ximena Constantino RN Position: [facility] RN Member Role: Primary Care Nurse Name: Kylie Wilde RN Position: [facility] RN Member Role: Primary Care Nurse Name: Domenica Ramirez RN Position: [facility] RN Member Role: Primary Care Nurse Name: Klarissa Ko RN Position: [facility] RN Member Role: Primary Care Nurse Name: Alma Lott RN Position: [facility] RN Member Role: Primary Care Nurse Name: Annemarie Alfred MD Position: Reference Physician Member Role: PCP Address: Address: [address] [place] [id number] Name: Caroline Shirley RN Position: [facility] RN Member Role: Primary Care Nurse Name: Tanisha Perez RN Position: [facility] RN Member Role: Primary Care Nurse Name: Chelle Ricardo RN Position: [facility] RN Member Role: Primary Care Nurse Name: Kelsi Kim RN Position: [facility] RN Member Role: Primary Care Nurse Name: Mireya Catherine RN Position: [facility] RN Member Role: Primary Care Nurse Name: Josefina Leonard RN Position: [facility] RN Member Role: Primary Care Nurse Name: Prem Barrera MD Position: [facility] Renal MD Member Role: Lifetime Consulting Physician Address: Address: [address] [place] [address] [address] [facility] [address] Name: Leah Silva RN Position: [facility] RN Member Role: Primary Care Nurse Name: Lata Hernandez RN Position: [facility] Preventive Maintenance Engineer Member Role: Primary Care Nurse Name: Atul Molina MD Position: [facility] Renal MD Member Role: Lifetime Consulting Physician Address: Address: [address] [place] [address] [facility] [address] Name: Gema Jean Baptiste RN Position: [facility] RN Member Role: Primary Care Nurse Name: Esther Miller RN Position: [facility] RN Member Role: Primary Care Nurse Name: Siena Coleman RN Position: [facility] RN Member Role: Primary Care Nurse Name: Julia Alex RN Position: [facility] RN Member Role: Primary Care Nurse Name: Brandi Martinez RN Position: [facility] RN Member Role: Primary Care Nurse Name: Joann Moore RN Position: [facility] RN Member Role: Primary Care Nurse Name: Ramya Cook RN Position: [facility] Preventive Maintenance Engineer Member Role: Primary Care Nurse Care Team Related Persons Name: HARVEY CASAS Address: [address] [place] [address]
--- OUTSIDE RECORDS SUMMARY | 2023-11-15 13:19 | XMS_ITS | Continuity of Care Document ---
Author Organization [facility] Address [address] [place] [id number]- Care Team Providers Care Jewelry Appraiser Name Role Phone Annemarie Alfred MD Primary Care Physician Encounter [facility] Date(s): 08/27/22 - 10/01/[address] [facility] [address] [place] [id number] Attending Physician: Evin Mckeon MD Admitting Physician: Evin Mckeon MD Referring Physician: Annemarie Alfred MD Allergies, [...] 0 Refills, Maintenance, 05/14/22 16:10:00 EDT, Tablet, [facility], Partial fill upon patient request if the prescription is for a schedule II opioid drug., 156, cm, 05/14/22 15:10:00... Start Date: 05/14/22 Status: Ordered aspirin 81 mg oral delayed release tablet 81 mg, By Mouth, Daily, # 30 tablet, Refills 0, Tot. Refills 0, Maintenance, 05/14/22 16:09:00 EDT,Route to Pharmacy Electronically, [facility], Partial fill upon patient request if the prescription is for a schedule II opioid drug., 15... Start Date: 05/14/22 Status: Ordered atorvastatin 80 mg oral tablet 1 tablet = 80 mg, By Mouth, Daily at bedtime, # 30 tablet, 0 Refills, Maintenance, 05/14/22 16:09:00 EDT, Tablet, [facility], Partial fill upon patient [...] 05/14/22 16:09:00 EDT, Route to Pharmacy Electronically, [facility], Partial fill upon patient request [...] tablet, 0 Refills, Maintenance, 08/04/22 9:05:00 EST, [id number], 156, cm, 07/07/22 14:21:00 EST, Height, 116, kg, 05/04/22 19:13:00 EDT, Dry Weight Start Date: 08/04/22 Status: Ordered ferrous sulfate 325 mg oral enteric coated tablet 325 mg, By Mouth, Every Wednesday, Wednesday and Wednesday, # 30 tablet, Refills 0, Tot. Refills 0, Maintenance, 05/14/22 16:09:00 EDT, Route to Pharmacy Electronically, [facility], Partial fill upon patient request [...] Start Date: 05/14/22 Status: Ordered nystatin topical [id number] u/gm powder See Instructions, APPLY TO AFFECTED AREA TWICE A DAY TO THE SKIN FOLDS NEEDED, # 30 Gm, 0 Refills, [facility], 15, APPLY TO AFFECTED AREA TWICE A DAY TO THE SKIN FOLDS NEEDED, 155, cm, 06/03/21 10:30:00 EST, Height, 111.36, kg, 04/07/21 11:... Start Date: 09/30/21 Status: Ordered omeprazole 20 mg oral delayed release tablet 1 tablet = 20 mg, By Mouth, Daily, # 30 tablet, 0 Refills, Maintenance, 04/17/22 18:01:00 EDT, CR Tablet, [id number], Partial fill upon patient request if the prescription is for a schedule II opioid drug., 158, cm, 04/17/22 16:11:00 EDT, [facility]... Start Date: 04/17/22 Status: Ordered sulfamethoxazole-trimethoprim 800 mg-160 mg oral tablet 1 tablet, By Mouth, Every 12 hours, for 14 days, # 28 tablet, 3 Refills, Acute 10/08/22 10:49:00 EDT, 08/13/22 10:49:00 EST, Tablet, [id number], Partial fill upon patient request if the prescription is for a schedule II opioid drug., 1 tablet... Start Date: 08/13/22 Stop Date: 10/08/22 Status: Ordered sulfamethoxazole-trimethoprim 800 mg-160 mg oral tablet 1 tablet, By Mouth, Every 12 hours, for 90 days, # 180 tablet, 3 Refills, Acute 10/03/23 10:49:00 EDT, 10/08/22 10:49:00 EDT, Tablet, [id number], Partial fill upon [...] Team Personnel Name: Thomas Lomax RN Position: [facility] ED RN W/OE and Tasks Member Role: Primary Care Nurse Name: Mandy Hightower RN Position: [facility] RN Member Role: Primary Care Nurse Name: Akosua Moses RN Position: [facility] RN Member Role: Primary Care Nurse Name: Michelle Zambrano RN Position: [facility] RN Member Role: Primary Care Nurse Name: Stacie Ortiz RN Position: [facility] SN RN Member Role: Primary Care Nurse Name: Nicole Alvarado RN Position: [facility] RN Member Role: Primary Care Nurse Name: Pau Olmedo RN Position: [facility] RN Member Role: Primary Care Nurse Name: Rodrigo Noel RN Position: [facility] RN Member Role: Primary Care Nurse Name: Ximena Constantino RN Position: [facility] RN Member Role: Primary Care Nurse Name: Kylie Wilde RN Position: [facility] RN Member Role: Primary Care Nurse Name: Domenica Ramirez RN Position: [facility] RN Member Role: Primary Care Nurse Name: Klarissa Ko RN Position: [facility] RN Member Role: Primary Care Nurse Name: Alma Lott RN Position: [facility] RN Member Role: Primary Care Nurse Name: Annemarie Alfred MD Position: Reference Physician Member Role: PCP Address: Address: [address] [place] [id number]- [place] Name: Caroline Shirley RN Position: [facility] RN Member Role: Primary Care Nurse Name: Tanisha Perez RN Position: [facility] RN Member Role: Primary Care Nurse Name: Chelle Ricardo RN Position: [facility] RN Member Role: Primary Care Nurse Name: Kelsi Kim RN Position: [facility] RN Member Role: Primary Care Nurse Name: Mireya Catherine RN Position: [facility] RN Member Role: Primary Care Nurse Name: Josefina Leonard RN Position: [facility] RN Member Role: Primary Care Nurse Name: Prem Barrera MD Position: [facility] Renal MD Member Role: Lifetime Consulting Physician Address: Address: [address] [place] [address] [address] [facility] [place] [address]- Name: Lata Hernandez RN Position: [facility] Rv Repair Technician Member Role: Primary Care Nurse Name: Atul Molina MD Position: [facility] Renal MD Member Role: Lifetime Consulting Physician Address: Address: [address] [place] [address] [facility] [place] [address]- Name: Gema Jean Baptiste RN Position: [facility] RN Member Role: Primary Care Nurse Name: Esther Miller RN Position: [facility] RN Member Role: Primary Care Nurse Name: Siena Coleman RN Position: [facility] RN Member Role: Primary Care Nurse Name: Julia Alex RN Position: [facility] RN Member Role: Primary Care Nurse Name: Brandi Martinez RN Position: [facility] RN Member Role: Primary Care Nurse Name: Joann Moore RN Position: [facility] RN Member Role: Primary Care Nurse Name: Ramya Cook RN Position: [facility] Rv Repair Technician Member Role: Primary Care Nurse Care Team Related Persons Name: HARVEY CASAS Address: [address] [address]
--- OUTSIDE RECORDS SUMMARY | 2023-11-15 13:19 | XMS_ITS | Continuity of Care Document ---
Author Organization [facility] ter Address [address] [place] [id number]- Care Team Providers Care Quality Control Clerk Name Role Phone Tima ORDAZ, Annemarie Slater Primary Care Physician Encounter [facility] Date(s): 08/31/23 - 09/01/[address] [id number] Discharge Disposition: A-Transfer VNA/Home Health Attending Physician: Juanis Watson MD Admitting Physician: Jason Armijo MD Referring Physician: Not on Staff, Referring MD Allergies, Adverse Reactions, Alerts Substance Reaction [...] 0 Refills, Maintenance, 05/14/22 16:10:00 EDT, Tablet, [facility], Partial fill upon patient request if the prescription is for a schedule II opioid drug., 156, cm, 05/14/22 15:10:00... Start Date: 05/14/22 Status: Ordered aspirin 81 mg oral delayed release tablet 81 mg, By Mouth, Daily, # 30 tablet, Refills 0, Tot. Refills 0, Maintenance, 05/14/22 16:09:00 EDT,Route to Pharmacy Electronically, [facility], Partial fill upon patient request if the prescription is for a schedule II opioid drug., 15... Start Date: 05/14/22 Status: Ordered atorvastatin 80 mg oral tablet 1 tablet = 80 mg, By Mouth, Daily at bedtime, # 30 tablet, 0 Refills, Maintenance, 05/14/22 16:09:00 EDT, Tablet, [facility], Partial fill upon patient request if the prescription is for a schedule II opioid drug., 156, cm, 05/14/22 15:1... Start Date: 05/14/22 Status: Ordered buprenorphine 2 mg sublingual tablet, disintegrating 2 tablet = 4 mg, Sublingual, 4 times a day, 0 Refills, Maintenance, 09/01/23 6:46:00 EST, Tablet, Partial fill upon patient request if the prescription is for a schedule II opioid drug. Start Date: 09/01/23 Status: Ordered Cardizem LA 180 mg/24 hours [...] 05/14/22 16:09:00 EDT, Route to Pharmacy Electronically, [facility], Partial fill upon patient request if the prescription is for a schedul... Start Date: 05/14/22 Status: Ordered Coreg 6.25 mg oral tablet 6.25 mg, Tablet, By Mouth, 09/01/23 10:32:00 EST Start Date: 09/01/23 Stop Date: 09/01/23 Status: Completed Dilaudid 4 mg oral tablet 1 tablet = 4 mg, By Mouth, Every 4 hours, PRN as needed for pain, for 3 days, For acute pain control, # 20 tablet, 0 Refills, Acute 09/04/23 15:30:00 EST, 09/01/23 15:30:00 EST, Tablet, [facility]acy #[id number], Partial fill upon patient request if the pres... Start Date: 09/01/23 Stop Date: 09/04/23 Status: Ordered Dilaudid Inj 2 mg, Injection, IV Push Slowly, Every 4 hours, PRN for Pain , Severe, Routine, 08/31/23 22:33:00 EST Start Date: 08/31/23 Stop Date: 09/02/23 Status: Discontinued Docusate Sodium Capsule 100 mg, 1, capsule, By Mouth, 2 times a day, Refills 0, Maintenance, 11/18/21 12:52:00 EDT, Partialfill upon patient request if the prescription is for a schedule II opioid drug. Start Date: 11/18/21 Status: Ordered ferrous sulfate 325 mg oral enteric coated tablet 325 mg, By Mouth, Every Wednesday, Wednesday and Wednesday, # 30 tablet, Refills 0, Tot. Refills 0, Maintenance, 05/14/22 16:09:00 EDT, Route to Pharmacy Electronically, [facility], Partial fill upon patient request if the prescription is for... Start Date: 05/14/22 Status: Ordered Milk of Magnesia Liquid 30 mL, By Mouth, 2 times a day, PRN Constipation, 0 Refills, Maintenance, 11/18/21 12:52:00 EDT, Suspension, Partial fill upon patient request if the prescription is for a schedule II opioid drug. Start Date: 11/18/21 Status: Ordered Narcan 4 mg/0.1 mL nasal spray = 4 mg, Naris, Left, Once, PRN Other, To reverse opioid overdose, may repeat every 2 to 3 minutes until patient responds, call 911 in the meantime, # 2 each, 0 Refills, Soft Stop, 09/01/23 15:31:00 EST, [facility]/pharmacy #[id number], Partial fill upon patient... Start Date: 09/01/23 Status: Ordered nitroglycerin 0.4 mg sublingual tablet 1 tablet = 0.4 mg, Sublingual, Every 5 minutes, PRN Chest Pain, 0 Refills, Maintenance, 05/14/22 7:11:00 EDT, Tablet, Partial fill upon patient request if the prescription is for a schedule II opioiddrug. Start Date: 05/14/22 Status: Ordered nystatin topical [id number] u/gm powder See Instructions, APPLY TO AFFECTED AREA TWICE A DAY TO THE SKIN FOLDS NEEDED, # 30 Gm, 0 Refills, [id number], 15, APPLY TO AFFECTED AREA TWICE A DAY TO THE SKIN FOLDS NEEDED, 155, cm, 06/03/21 10:30:00 EST, Height, 111.36, kg, 04/07/21 11:... Start Date: 09/30/21 Status: Ordered omeprazole 20 mg oral delayed release tablet 1 tablet = 20 mg, By Mouth, Daily, # 30 tablet, 0 Refills, Maintenance, 04/17/22 18:01:00 EDT, CR Tablet, [facility]/pharmacy #[id number], Partial fill upon patient request if the prescription is for a schedule II opioid drug., 158, cm, 04/17/22 16:11:00 EDT, Heig... Start Date: 04/17/22 Status: Ordered oxyCODONE 5 mg oral capsule 2 capsule = 10 mg, By Mouth, Every 4 hours, PRN Pain , Moderate, 0 Refills, Maintenance, 09/01/23 6:47:00 EST, Capsule, Partial fill upon patient request if the prescription is for a schedule II opioid drug. Start Date: 09/01/23 Status: Ordered Sulfamethoxazole 800mg/Trimethoprim 160 mg Tablet 1, tablet, By Mouth, Daily, Maintenance, 09/01/23 6:45:00 EST Start Date: 09/01/23 Status: Ordered theophylline 400 mg/24 hours oral [...] Confirmed Active Sleep apnea Confirmed Active Results Radiology Reports * Exam Date Time Procedure Performing Provider Status 08/31/23 7:50 PM Tibia/Fibula 2 Views Left Eric Almanzar na; Auth (Verified) Notes: (Tibia/Fibula 2 Views Left) Reason For Exam: with Pain;Trauma RESULT: Tibia/Fibula 2 Views Left Tibia/Fibula 2 Views Left Reason: Trauma; with Pain; Clinical Question(s): Fracture COMPARISON: None. FINDINGS: No acute fracture or dislocation. Normal tibia and fibula alignment. There is tricompartmental osteoarthritis in the knee most advanced in the medial compartment. IMPRESSION: No acute fracture. WSN: [id number] Ordering Physician: Lorelei Turk Dictated By: Belle Gill MD Dictated Date/Time: 08/31/23 8:15 pm Reviewed By: Belle Gill MD Signed By: Belle Gill MD Signed Date/Time: 08/31/23 8:15 pm Transcribed By: VIPIN Transcribed Date/Time: 08/31/23 8:15 pm * Exam Date Time Procedure Performing Provider Status 08/31/23 7:50 PM Tibia/Fibula 2 Views Right Clarissa Almanzar nna; Auth (Verified) Notes: (Tibia/Fibula 2 Views Right) Reason For Exam: with Pain;Trauma RESULT: Tibia/Fibula 2 Views Right Tibia/Fibula 2 Views Right Reason: Trauma; with Pain; Clinical Question(s): Fracture COMPARISON: None. FINDINGS: No acute fracture or dislocation. Partially imaged distal femoral fixation hardware, chronic posttraumatic deformity and heterotopic ossification in the distal thigh soft tissues. There is tricompartmental osteoarthritis in the knee. IMPRESSION: No acute fracture. WSN: [id number] Ordering Physician: Alexa Heredia Dictated By: Belle Gill MD Dictated Date/Time: 08/31/23 8:15 pm Reviewed By: Belle Gill MD Signed By: Belle Gill MD Signed Date/Time: 08/31/23 8:15 pm Transcribed By: VIPIN Transcribed Date/Time: 08/31/23 8:14 pm * Exam Date Time Procedure Performing Provider Status 08/31/23 7:50 PM Knee 1 or 2 Views Right Alicia Almanzar ; Auth (Verified) Notes: (Knee 1 or 2 Views Right) Reason For Exam: with Pain;Trauma RESULT: Knee 1 or 2 Views Right Knee 1 or 2 Views Right, 2 views Reason: Trauma; with Pain; Clinical Question(s): Fracture COMPARISON: 04/17/2022 FINDINGS: No acute fracture or dislocation. Status post ORIF with extensive hardware in the distal femur. Stable appearance of the healed fracture compared to prior study. Heterotopic ossification lateral RIGHT thigh. There is tricompartmentalosteoarthritis of the knee, most advanced in the medial compartment. IMPRESSION: RIGHT knee: No acute fracture. Chronic findings. WSN: [id number] Ordering Physician: Alexa Heredia Dictated By: Belle Gill MD Dictated Date/Time: 08/31/23 8:13 pm Reviewed By: Belle Gill MD Signed By: Belle Gill MD Signed Date/Time: 08/31/23 8:13 pm Transcribed By: VIPIN Transcribed Date/Time: 08/31/23 7:57 pm * Exam Date Time Procedure Performing Provider Status 08/31/23 7:50 PM Knee 1 or 2 Views Left Alicia Almanzar; Auth (Verified) Notes: (Knee 1 or 2 Views Left) Reason For Exam: with Pain;Trauma RESULT: Knee 1 or 2 Views Left Knee 1 or 2 Views Left, 2 views Reason: Trauma; with Pain; Clinical Question(s): Fracture COMPARISON: None. FINDINGS: No bone lesions or fractures. There is tricompartmental degenerative joint space narrowing most advanced in the medial compartment with marginal spurring. Normal alignment. There is degenerative spurring of the tibial spines. No evidence of joint effusion. IMPRESSION: LEFT knee: No acute fracture or joint effusion. WSN: [id number] Ordering Physician: Lorelei Turk Dictated By: Belle Gill MD Dictated Date/Time: 08/31/23 7:56 pm Reviewed By: Belle Gill MD Signed By: Belle Gill MD Signed Date/Time: 08/31/23 7:56 pm Transcribed By: VIPIN Transcribed Date/Time: 08/31/23 7:55 pm * Exam Date Time Procedure Performing Provider Status 08/31/23 6:[address] Abd/Pelvis W/ IV Contrast Only Rodrigo rt , Julissa; Auth (Verified) Notes: (CT Abd/Pelvis W/ IV Contrast Only) Reason For Exam: Abd trauma, blunt;Other: RESULT: CT Abd/Pelvis W/ IV Contrast Only CT Chest W/ Contrast, CT Thoracic Spine W/ Contrast, CT Lumbar Spine W/ Contrast, CT Abd/Pelvis W/ IV Contrast Only INDICATION: Reason: Chest trauma, blunt; Clinical Question(s): Other:; Aortic hilar injury; Order Comment: TECHNIQUE: Helical CT scan of the chest, abdomen, and pelvis with IV contrast, formatted in 3 planes. The original dataset was reconstructed with a small field of view around the thoracic and lumbar spine utilizing soft tissue and bone algorithm reconstructions in 3 planes. 100 cc of Omnipaque 300 was administered intravenously. This study was performed without oral contrast. Weight-based protocol was performed using automatic exposure control. CTDIvol Body: 18.42 mGy, DLP Body: 1396 mGy*cm. COMPARISON: CT angiography chest 12/07/2020. FINDINGS: [employer]ocket [employer] Operator view findings, lines and tubes: CT chest 12/07/2020. Trachea and airways: Patent without evidence of tracheal or endobronchial lesion. Lungs and pleura: Evaluation moderately degraded by motion. Mild dependent bibasilar atelectasis. Large bulla in the anterior right midlung. No pleural effusion. No pneumothorax. Mediastinum and mimi: No mass or hematoma. No mediastinal or hilar lymphadenopathy. Small type I hiatal hernia. Normal thyroid. Heart: Mild cardiomegaly. No pericardial effusion. Mild coronary artery calcification. Aorta: Moderate vascular calcification but no aneurysm. Pulmonary arteries: Main pulmonary artery is enlarged. Similar appearance on prior CT study dated 12/07/2020. No evidence of pulmonary embolism on this study performed without angiographic technique. Chest wall soft tissues: No acute abnormality. Diaphragm: Intact. Liver: Normal in attenuation and morphology. No suspicious lesion. Gallbladder: Absent consistent with prior cholecystectomy. Bile ducts: No biliary ductal dilation. Spleen: Normal in size. Pancreas: No suspicious lesion or ductal dilatation. Adrenal glands: No nodule. Kidneys and ureters: Mild bilateral nonspecific perinephric stranding. No hydronephrosis, stone, orsuspicious lesion. Small hypodensities that are too small to characterize are noted, requiring no dedicated follow up. Bladder: No wall thickening or surrounding stranding. Reproductive organs: Status post hysterectomy. Stomach, small bowel, and large bowel: Small type I hiatal hernia. Normal caliber stomach and bowelloops. No surrounding inflammatory changes. Appendix: No evidence of acute appendicitis. Peritoneum and retroperitoneum: No ascites or pneumoperitoneum. No omental or mesenteric lesions. Lymph nodes: No enlarged lymph nodes. Blood vessels: Moderate atherosclerotic vascular calcification. No aortic aneurysm. No evidence of venous thrombosis. Abdominal and pelvic wall soft tissues: No acute abnormality. Bones: No acute abnormality. Multiple chronic healed rib fractures and changes related to previous manubrium and sternum fractures. Degenerative changes of the visualized spine. Partially imaged right proximal femoral ORIF hardware. No acute thoracic or lumbar spine fractures. IMPRESSION: No acute abnormality of the chest, abdomen, or pelvis. Chronic main pulmonary artery enlargement may represent underlying pulmonary hypertension No acute thoracic or lumbar spine fracture. I have personally reviewed the images and I agree with this report. WSN: [id number] Ordering Physician: Lorelei Turk Dictated By: Tanisha Heard DO Dictated Date/Time: 08/31/23 7:33 pm Reviewed By: Belle Gill MD Signed By: Belle Gill MD Signed Date/Time: 08/31/23 7:38 pm Transcribed By: VIPIN Transcribed Date/Time: 08/31/23 7:27 pm * Exam Date Time Procedure Performing Provider Status 08/31/23 6:[address] Lumbar Spine W/ Contrast Sandie Bailey era; Auth (Verified) Notes: (CT Lumbar Spine W/ Contrast) Reason For Exam: Spine fracture, lumbar, traumatic;Other: RESULT: CT Lumbar Spine W/ Contrast CT Chest W/ Contrast, CT Thoracic Spine W/ Contrast, CT Lumbar Spine W/ Contrast, CT Abd/Pelvis W/ IV Contrast Only INDICATION: Reason: Chest trauma, blunt; Clinical Question(s): Other:; Aortic hilar injury; Order Comment: TECHNIQUE: Helical CT scan of the chest, abdomen, and pelvis with IV contrast, formatted in 3 planes. The original dataset was reconstructed with a small field of view around the thoracic and lumbar spine utilizing soft tissue and bone algorithm reconstructions in 3 planes. 100 cc of Omnipaque 300 was administered intravenously. This study was performed without oral contrast. Weight-based protocol was performed using automatic exposure control. CTDIvol Body: 18.42 mGy, DLP Body: 1396 mGy*cm. COMPARISON: CT angiography chest 12/07/2020. FINDINGS: Rocket [employer] Operator view findings, lines and tubes: CT chest 12/07/2020. Trachea and airways: Patent without evidence of tracheal or endobronchial lesion. Lungs and pleura: Evaluation moderately degraded by motion. Mild dependent bibasilar atelectasis. Large bulla in the anterior right midlung. No pleural effusion. No pneumothorax. Mediastinum and mimi: No mass or hematoma. No mediastinal or hilar lymphadenopathy. Small type I hiatal hernia. Normal thyroid. Heart: Mild cardiomegaly. No pericardial effusion. Mild coronary artery calcification. Aorta: Moderate vascular calcification but no aneurysm. Pulmonary arteries: Main pulmonary artery is enlarged. Similar appearance on prior CT study dated 12/07/2020. No evidence of pulmonary embolism on this study performed without angiographic technique. Chest wall soft tissues: No acute abnormality. Diaphragm: Intact. Liver: Normal in attenuation and morphology. No suspicious lesion. Gallbladder: Absent consistent with prior cholecystectomy. Bile ducts: No biliary ductal dilation. Spleen: Normal in size. Pancreas: No suspicious lesion or ductal dilatation. Adrenal glands: No nodule. Kidneys and ureters: Mild bilateral nonspecific perinephric stranding. No hydronephrosis, stone, orsuspicious lesion. Small hypodensities that are too small to characterize are noted, requiring no dedicated follow up. Bladder: No wall thickening or surrounding stranding. Reproductive organs: Status post hysterectomy. Stomach, small bowel, and large bowel: Small type I hiatal hernia. Normal caliber stomach and bowelloops. No surrounding inflammatory changes. Appendix: No evidence of acute appendicitis. Peritoneum and retroperitoneum: No ascites or pneumoperitoneum. No omental or mesenteric lesions. Lymph nodes: No enlarged lymph nodes. Blood vessels: Moderate atherosclerotic vascular calcification. No aortic aneurysm. No evidence of venous thrombosis. Abdominal and pelvic wall soft tissues: No acute abnormality. Bones: No acute abnormality. Multiple chronic healed rib fractures and changes related to previous manubrium and sternum fractures. Degenerative changes of the visualized spine. Partially imaged right proximal femoral ORIF hardware. No acute thoracic or lumbar spine fractures. IMPRESSION: No acute abnormality of the chest, abdomen, or pelvis. Chronic main pulmonary artery enlargement may represent underlying pulmonary hypertension No acute thoracic or lumbar spine fracture. I have personally reviewed the images and I agree with this report. WSN: [id number] Ordering Physician: Lorelei Turk Dictated By: Tanisha Heard DO Dictated Date/Time: 08/31/23 7:33 pm Reviewed By: Belle Gill MD Signed By: Belle Gill MD Signed Date/Time: 08/31/23 7:38 pm Transcribed By: VIPIN Transcribed Date/Time: 08/31/23 7:27 pm * Exam Date Time Procedure Performing Provider Status 08/31/23 6:[address] Thoracic Spine W/ Contrast Julissa Bailey; Auth (Verified) Notes: (CT Thoracic Spine W/ Contrast) Reason For Exam: Spine fracture, thoracic, traumatic;Other: RESULT: CT Thoracic Spine W/ Contrast CT Chest W/ Contrast, CT Thoracic Spine W/ Contrast, CT Lumbar Spine W/ Contrast, CT Abd/Pelvis W/ IV Contrast Only INDICATION: Reason: Chest trauma, blunt; Clinical Question(s): Other:; Aortic hilar injury; Order Comment: TECHNIQUE: Helical CT scan of the chest, abdomen, and pelvis with IV contrast, formatted in 3 planes. The original dataset was reconstructed with a small field of view around the thoracic and lumbar spine utilizing soft tissue and bone algorithm reconstructions in 3 planes. 100 cc of Omnipaque 300 was administered intravenously. This study was performed without oral contrast. Weight-based protocol was performed using automatic exposure control. CTDIvol Body: 18.42 mGy, DLP Body: 1396 mGy*cm. COMPARISON: CT angiography chest 12/07/2020. FINDINGS: Rocket [employer] Operator view findings, lines and tubes: CT chest 12/07/2020. Trachea and airways: Patent without evidence of tracheal or endobronchial lesion. Lungs and pleura: Evaluation moderately degraded by motion. Mild dependent bibasilar atelectasis. Large bulla in the anterior right midlung. No pleural effusion. No pneumothorax. Mediastinum and mimi: No mass or hematoma. No mediastinal or hilar lymphadenopathy. Small type I hiatal hernia. Normal thyroid. Heart: Mild cardiomegaly. No pericardial effusion. Mild coronary artery calcification. Aorta: Moderate vascular calcification but no aneurysm. Pulmonary arteries: Main pulmonary artery is enlarged. Similar appearance on prior CT study dated 12/07/2020. No evidence of pulmonary embolism on this study performed without angiographic technique. Chest wall soft tissues: No acute abnormality. Diaphragm: Intact. Liver: Normal in attenuation and morphology. No suspicious lesion. Gallbladder: Absent consistent with prior cholecystectomy. Bile ducts: No biliary ductal dilation. Spleen: Normal in size. Pancreas: No suspicious lesion or ductal dilatation. Adrenal glands: No nodule. Kidneys and ureters: Mild bilateral nonspecific perinephric stranding. No hydronephrosis, stone, orsuspicious lesion. Small hypodensities that are too small to characterize are noted, requiring no dedicated follow up. Bladder: No wall thickening or surrounding stranding. Reproductive organs: Status post hysterectomy. Stomach, small bowel, and large bowel: Small type I hiatal hernia. Normal caliber stomach and bowelloops. No surrounding inflammatory changes. Appendix: No evidence of acute appendicitis. Peritoneum and retroperitoneum: No ascites or pneumoperitoneum. No omental or mesenteric lesions. Lymph nodes: No enlarged lymph nodes. Blood vessels: Moderate atherosclerotic vascular calcification. No aortic aneurysm. No evidence of venous thrombosis. Abdominal and pelvic wall soft tissues: No acute abnormality. Bones: No acute abnormality. Multiple chronic healed rib fractures and changes related to previous manubrium and sternum fractures. Degenerative changes of the visualized spine. Partially imaged right proximal femoral ORIF hardware. No acute thoracic or lumbar spine fractures. IMPRESSION: No acute abnormality of the chest, abdomen, or pelvis. Chronic main pulmonary artery enlargement may represent underlying pulmonary hypertension No acute thoracic or lumbar spine fracture. I have personally reviewed the images and I agree with this report. WSN: [id number] Ordering Physician: Lorelei Turk Dictated By: Tanisha Heard DO Dictated Date/Time: 08/31/23 7:33 pm Reviewed By: Belle Gill MD Signed By: Belle Gill MD Signed Date/Time: 08/31/23 7:38 pm Transcribed By: VIPIN Transcribed Date/Time: 08/31/23 7:27 pm * Exam Date Time Procedure Performing Provider Status 08/31/23 6:[address] Chest W/ Contrast Julissa Bailey; Au th (Verified) Notes: (CT Chest W/ Contrast) Reason For Exam: Chest trauma, blunt;Other: RESULT: CT Chest W/ Contrast CT Chest W/ Contrast, CT Thoracic Spine W/ Contrast, CT Lumbar Spine W/ Contrast, CT Abd/Pelvis W/ IV Contrast Only INDICATION: Reason: Chest trauma, blunt; Clinical Question(s): Other:; Aortic hilar injury; Order Comment: TECHNIQUE: Helical CT scan of the chest, abdomen, and pelvis with IV contrast, formatted in 3 planes. The original dataset was reconstructed with a small field of view around the thoracic and lumbar spine utilizing soft tissue and bone algorithm reconstructions in 3 planes. 100 cc of Omnipaque 300 was administered intravenously. This study was performed without oral contrast. Weight-based protocol was performed using automatic exposure control. CTDIvol Body: 18.42 mGy, DLP Body: 1396 mGy*cm. COMPARISON: CT angiography chest 12/07/2020. FINDINGS: [employer] Operator view findings, lines and tubes: CT chest 12/07/2020. Trachea and airways: Patent without evidence of tracheal or endobronchial lesion. Lungs and pleura: Evaluation moderately degraded by motion. Mild dependent bibasilar atelectasis. Large bulla in the anterior right midlung. No pleural effusion. No pneumothorax. Mediastinum and mimi: No mass or hematoma. No mediastinal or hilar lymphadenopathy. Small type I hiatal hernia. Normal thyroid. Heart: Mild cardiomegaly. No pericardial effusion. Mild coronary artery calcification. Aorta: Moderate vascular calcification but no aneurysm. Pulmonary arteries: Main pulmonary artery is enlarged. Similar appearance on prior CT study dated 12/07/2020. No evidence of pulmonary embolism on this study performed without angiographic technique. Chest wall soft tissues: No acute abnormality. Diaphragm: Intact. Liver: Normal in attenuation and morphology. No suspicious lesion. Gallbladder: Absent consistent with prior cholecystectomy. Bile ducts: No biliary ductal dilation. Spleen: Normal in size. Pancreas: No suspicious lesion or ductal dilatation. Adrenal glands: No nodule. Kidneys and ureters: Mild bilateral nonspecific perinephric stranding. No hydronephrosis, stone, orsuspicious lesion. Small hypodensities that are too small to characterize are noted, requiring no dedicated follow up. Bladder: No wall thickening or surrounding stranding. Reproductive organs: Status post hysterectomy. Stomach, small bowel, and large bowel: Small type I hiatal hernia. Normal caliber stomach and bowelloops. No surrounding inflammatory changes. Appendix: No evidence of acute appendicitis. Peritoneum and retroperitoneum: No ascites or pneumoperitoneum. No omental or mesenteric lesions. Lymph nodes: No enlarged lymph nodes. Blood vessels: Moderate atherosclerotic vascular calcification. No aortic aneurysm. No evidence of venous thrombosis. Abdominal and pelvic wall soft tissues: No acute abnormality. Bones: No acute abnormality. Multiple chronic healed rib fractures and changes related to previous manubrium and sternum fractures. Degenerative changes of the visualized spine. Partially imaged right proximal femoral ORIF hardware. No acute thoracic or lumbar spine fractures. IMPRESSION: No acute abnormality of the chest, abdomen, or pelvis. Chronic main pulmonary artery enlargement may represent underlying pulmonary hypertension No acute thoracic or lumbar spine fracture. I have personally reviewed the images and I agree with this report. WSN: [id number] Ordering Physician: Lorelei Turk Dictated By: Tanisha Heard DO Dictated Date/Time: 08/31/23 7:33 pm Reviewed By: Belle Gill MD Signed By: Belle Gill MD Signed Date/Time: 08/31/23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 counter. Some medicines can affect how blood thinners work. This can cause serious problems. ??? Tell all of your healthcareproviders that you take a blood thinner. This includes your dentist, chiropractor, home health nurse, and other healthcare providers. ??? Carry a medical ID card or wear a medical-alert bracelet thatsays you take a blood thinner. ??? Before taking aspirin, check with your healthcare provider. Aspirin can greatly increase your risk of bleeding. Blood thinners make bleeding harder to stop. Even a small injury could cause a lot of bleeding. An injury can cause bleeding inside your body that you don???t know about. To protect yourself: ??? Don't do any activities that may cause injury. ??? Use a soft-bristle toothbrush and waxed dental floss. ??? Shave with an electric razor rather than a blade. ??? Don???t go barefoot. ??? Don???t trim corns or calluses yourself. ?? Important safety information Be extra careful when you are taking a blood thinner. Always: ??? Take it exactly as prescribed. Follow your healthcare provider's instructions. Blood thinners can be dangerous if not taken correctly. They make your blood less likely to form clots. If you take too much, it can cause serious internal or external bleeding. ??? Take it at the same time each day. Take it with a full glass of water, with or without food. If you miss a dose, call your healthcare provider to find out how much to take.Don't take a double dose. ??? Have regular blood tests.??You may need to have regular tests while you are taking blood thinners. These may include blood tests to check your international normalized ratio (INR) and prothrombin time (PT). These tests show how fast your blood clots.??You will also have a complete blood count (CBC) once in a while.??This looks at your blood and platelet levels. Both of these need to be watched while you're on warfarin. Ask your healthcare provider if you need to visit the clinic every week. You can also find out if your blood can be tested at home. Ask your provider how often you will need your blood tested for the blood thinner you are taking. ??? Tell your healthcare provider about changes in your medicines. ??Some medicines can affect your INR and PT levels.??This includes any pzbe-ifs-nzeffoj medicines, supplements like vitamin K, or herbal remedies. ??? Keep your diet the same. What you eat can also affect your INR and PT levels. So eat a consistent diet. It's most important to eat the same amount of foods that are high in vitamin K. Talk with yourhealthcare provider before making any changes in your diet. ??? Be careful not to injure yourself. Remember that warfarin increases your risk of bleeding. If you have a severe injury and are concerned about internal or external bleeding, call your provider. ?? Blood thinners: Getting regular blood tests You will have 2 tests to find out how your blood is clotting. One is called prothrombin time (PT). The other is called the international normalized ratio (INR). ??? Get your blood tests as often as directed. ??? Follow up with your healthcare provider as advised. It may take a few hours for them to get your results. Call to find out your lab results. Ask your healthcare provider if you need to make changes to your dose or diet. ??? If your blood tests are not done at your healthcare provider???s office, tell them as soon as you get your test results. My next INR/PT blood test is on (date) at (time) by (name of healthcare provider or clinic). The name of the healthcare provider who is in charge of my anticoagulation therapy is . The phone number is . ?? Watching what you eat Vitamin K is a nutrient found in some foods.??Vitamin K helps your blood clot. Because of this, youmay need to watch how much you eat of foods that have vitamin K. These foods can affect the way your blood thinner works. ??? Try to keep your diet about the same each day. If you change your diet for any reason, such as??for illness or to lose weight, tell your healthcare provider. ??? Each day, eat the same amount of foods that are high in vitamin K. These include asparagus, avocado, broccoli,??cabbage, kale, spinach, and some other leafy green vegetables. ??? Limit oils that are high in vitamin K to 2 to 4 tablespoons a day. This includes oils such as soybean, canola, and olive ??? Ask your healthcare provider if you should not drink alcohol while you are taking a blood thinner. ??? Don't drink teas that contain sweet clover, sweet magalie, or tonka beans. ??? Talk with your healthcare provider and pharmacist about foods or ingredients that can affect blood thinner levels. These include grapefruit juice,cranberries and cranberry juice, fish oil, garlic, luis enrique, licorice, turmeric, and herbal teas and??supplements. This list may not include all foods and ingredients that can affect how your medicine works. Talk with your healthcare provider and pharmacist. ?? When to call your healthcare provider Call your healthcare provider right away if you have any of these: ??? Bleeding that doesn???t stopin 10 minutes ??? A heavy menstrual period or bleeding between periods ??? Coughing up or vomiting blood ??? Bloody diarrhea ??? Bleeding hemorrhoids? Dark-colored urine ??? Black stools ??? Redor njafk-cle-nlwy little on the skin that get larger ??? Dizziness ??? Chest pain ??? Trouble breathing ??? Rash ??? Itching ??? Swelling ??? Trouble swallowing ?? Last Reviewed Date: 2021 ?? 0819-1916 [employer]. All rights reserved. This information is not intended as a substitute for professional medical care. Always follow your healthcare professional's instructions. ?? Patient Care team information Care Team Personnel Name: Thomas Lomax RN Position: [facility] ED RN W/OE and Tasks Member Role: Primary Care Nurse Name: Mandy Hightower RN Position: [facility] RN Member Role: Primary Care Nurse Name: Akosua Moses RN Position: [facility] RN Member Role: Primary Care Nurse Name: Michelle Zambrano RN Position: [facility] RN Member Role: Primary Care Nurse Name: Stacie Ortiz RN Position: [facility] SN RN Member Role: Primary Care Nurse Name: Nicole Alvarado RN Position: [facility] RN Member Role: Primary Care Nurse Name: Pau Olmedo RN Position: [facility] RN Member Role: Primary Care Nurse Name: Rodrigo Noel RN Position: [facility] RN Member Role: Primary Care Nurse Name: Ximena Constantino RN Position: [facility] SN RN Member Role: Primary Care Nurse Name: Kylie Wilde RN Position: [facility] RN Member Role: Primary Care Nurse Name: Domenica Ramirez RN Position: [facility] RN Member Role: Primary Care Nurse Name: Klarissa Ko RN Position: [facility] RN Member Role: Primary Care Nurse Name: Alma Lott RN Position: [facility] SN RN Member Role: Primary Care Nurse Name: Annemarie Alfred MD Position: Reference Physician Member Role: PCP Address: Address: [address] [place] [id number]- [place] Name: Caroline Shirley RN Position: [facility] RN Member Role: Primary Care Nurse Name: Chelle Ricardo RN Position: [facility] RN Member Role: Primary Care Nurse Name: Kelsi Kim RN Position: [facility] RN Member Role: Primary Care Nurse Name: Mireya Catherine RN Position: [facility] RN Member Role: Primary Care Nurse Name: Lizet Hilliard RN Position: [facility] RN Member Role: Primary Care Nurse Name: Josefina Leonard RN Position: [facility] RN Member Role: Primary Care Nurse Name: Prem Barrera MD Position: [facility] Renal MD Member Role: Lifetime Consulting Physician Address: Address: [address] [place] [address] [address] [facility] [place] [address]- Name: Alma Reyes RN Position: [facility] RN Member Role: Primary Care Nurse Name: Lata Hernandez RN Position: [facility] Front Tender Member Role: Primary Care Nurse Name: Atul Molina MD Position: [facility] Renal MD Member Role: Lifetime Consulting Physician Address: Address: [address] [place] [address] [facility] [place] [address]- Name: Gema Jean Baptiste RN Position: [facility] RN Member Role: Primary Care Nurse Name: Esther Miller RN Position: [facility] RN Member Role: Primary Care Nurse Name: Siena Coleman RN Position: [facility] RN Member Role: Primary Care Nurse Name: Julia lAex RN Position: [facility] RN Member Role: Primary Care Nurse Name: Brandi Martinez RN Position: [facility] RN Member Role: Primary Care Nurse Name: Joann Moore RN Position: [facility] RN Member Role: Primary Care Nurse Name: Ramya Cook RN Position: [facility] Front Tender Member Role: Primary Care Nurse Care Team Related Persons Name: HARVEY CASAS Address: [address] [place] [address]
--- OUTSIDE RECORDS SUMMARY | 2023-11-15 13:19 | XMS_ITS | Continuity of Care Document ---
Author Organization [facility] Address [address] [place] [address]- Care Team Providers Care Shipmaster Name Role Phone Annemarie Alfred MD Primary Care Physician En[place] [facility] Date(s): 08/12/23 - 09/11/23 [facility] [address] [place] [id number] Referring Physician: Akosua Dominguez Allergies, Adverse Reactions, Alerts Substance Reaction Severity [...] Refills, Maintenance, 05/14/22 16:10:00 EDT, Tablet, [facility], Partial fill upon patient request if the prescription is for a schedule II opioid drug., 156, cm, 05/14/22 15:10:00... Start Date: 05/14/22 Status: Ordered aspirin 81 mg oral delayed release tablet 81 mg, By Mouth, Daily, # 30 tablet, Refills 0, Tot. Refills 0, Maintenance, 05/14/22 16:09:00 EDT,Route to Pharmacy Electronically, [facility], Partial fill upon patient request if the prescription is for a schedule II opioid drug., 15... Start Date: 05/14/22 Status: Ordered atorvastatin 80 mg oral tablet 1 tablet = 80 mg, By Mouth, Daily at bedtime, # 30 tablet, 0 Refills, Maintenance, 05/14/22 16:09:00 EDT, Tablet, [facility] 3, Partial fill upon patient request if [...] 05/14/22 16:09:00 EDT, [facility], Partial fill upon patient request if the prescription is for a schedul... Start Date: 05/14/22 Status: Ordered Docusate Sodium Capsule 100 mg, [...] 16:09:00 EDT, Route to Pharmacy Electronically, [facility], Partial fill upon patient request [...] 0 Refills, Soft Stop, 09/01/23 15:31:00 EST, [facility]/pharmacy #[id number], Partial fill upon patient... Start Date: 09/01/23 Status: Ordered nitroglycerin 0.4 mg sublingual tablet 1 tablet = 0.4 mg, Sublingual, Every 5 minutes, PRN Chest Pain, 0 Refills, Maintenance, 05/14/22 7:11:00 EDT, Tablet, Partial fill upon patient request if the prescription is for a schedule II opioiddrug. Start Date: 05/14/22 Status: Ordered nystatin topical 671200 u/gm powder See Instructions, APPLY TO AFFECTED AREA TWICE A DAY TO THE SKIN FOLDS NEEDED, # 30 Gm, 0 Refills, [facility] STORE [facility], 15, APPLY TO AFFECTED AREA TWICE A DAY TO THE SKIN FOLDS NEEDED, 155, cm, 06/03/21 10:30:00 EST, Height, 111.36, kg, 04/07/21 11:... Start Date: 09/30/21 Status: Ordered omeprazole 20 mg oral delayed release tablet 1 tablet = 20 mg, By Mouth, Daily, # 30 tablet, 0 Refills, Maintenance, 04/17/22 18:01:00 EDT, CR Tablet, [facility]/pharmacy #[id number], Partial fill upon patient request [...] Team Personnel Name: Thomas Lomax RN Position: [facility] ED RN W/OE and Tasks Member Role: Primary Care Nurse Name: Mandy Hightower RN Position: [facility] RN Member Role: Primary Care Nurse Name: Akosua Moses RN Position: [facility] RN Member Role: Primary Care Nurse Name: Michelle Zambrano RN Position: [facility] RN Member Role: Primary Care Nurse Name: Stacie Ortiz RN Position: [facility] SN RN Member Role: Primary Care Nurse Name: Nicole Alvarado RN Position: [facility] RN Member Role: Primary Care Nurse Name: Pau Olmedo RN Position: [facility] RN Member Role: Primary Care Nurse Name: Rodrigo Noel RN Position: [facility] RN Member Role: Primary Care Nurse Name: Ximena Constantino RN Position: [facility] SN RN Member Role: Primary Care Nurse Name: Kylie Wilde RN Position: [facility] RN Member Role: Primary Care Nurse Name: Domenica Ramirez RN Position: [facility] RN Member Role: Primary Care Nurse Name: Klarissa Ko RN Position: [facility] RN Member Role: Primary Care Nurse Name: Alma Lott RN Position: [facility] SN RN Member Role: Primary Care Nurse Name: Annemarie Alfred MD Position: Reference Physician Member Role: PCP Address: Address: [address] [place] [address] Name: Caroline Shirley RN Position: [facility] RN Member Role: Primary Care Nurse Name: Chelle Ricardo RN Position: [facility] RN Member Role: Primary Care Nurse Name: Kelsi Kim RN Position: [facility] RN Member Role: Primary Care Nurse Name: Mireya Catherine RN Position: [facility] RN Member Role: Primary Care Nurse Name: Lizet Hilliard RN Position: [facility] RN Member Role: Primary Care Nurse Name: Josefina Leonard RN Position: [facility] RN Member Role: Primary Care Nurse Name: Prem Barrera MD Position: [facility] Renal MD Member Role: Lifetime Consulting Physician Address: Address: [address] [place] [address] [address] [facility] [place] [address]- Name: Alma Reyes RN Position: [facility] RN Member Role: Primary Care Nurse Name: Lata Hernandez RN Position: [facility] Assistant Grocery Member Role: Primary Care Nurse Name: Atul Molina MD Position: [facility] Renal MD Member Role: Lifetime Consulting Physician Address: Address: [address] [place] [address] [facility] [place] [address]- Name: Gema Jean Baptiste RN Position: [facility] RN Member Role: Primary Care Nurse Name: Esther Miller RN Position: [facility] RN Member Role: Primary Care Nurse Name: Siena Colemna RN Position: [facility] RN Member Role: Primary Care Nurse Name: Julia Alex RN Position: [facility] RN Member Role: Primary Care Nurse Name: Brandi Martinez RN Position: [facility] RN Member Role: Primary Care Nurse Name: Joann Moore RN Position: [facility] RN Member Role: Primary Care Nurse Name: Ramya Cook RN Position: [facility] Assistant Grocery Member Role: Primary Care Nurse Care Team Related Persons Name: HARVEY CASAS Address: [address] [place] [address]
--- OUTSIDE RECORDS SUMMARY | 2023-11-15 13:19 | XMS_ITS | Continuity of Care Document ---
Author Organization [facility] Address [address] [place] [id number]- Care Team Providers Care Filling Separator Name Role Phone Tima ORDAZ, Annemarie Slater Primary Care Physician [place] [facility] [place] 09[place]01[place]22 - 10/01/22 [facility] [address] [place] [id number] Attending Physician: Bethany Smith Admitting Physician: Admtr, Bethany Referring Physician: Admtr, Ar8 Allergies, Adverse Reactions, [...] 0 Refills, Maintenance, 05/14/22 16:10:00 EDT, Tablet, [facility], Partial fill upon patient request if the prescription is for a schedule II opioid drug., 156, cm, 05/14/22 15:10:00... Start Date: 05/14/22 Status: Ordered aspirin 81 mg oral delayed release tablet 81 mg, By Mouth, Daily, # 30 tablet, Refills 0, Tot. Refills 0, Maintenance, 05/14/22 16:09:00 EDT,Route to Pharmacy Electronically, [facility], Partial fill upon patient request if the prescription is for a schedule II opioid drug., 15... Start Date: 05/14/22 Status: Ordered atorvastatin 80 mg oral tablet 1 tablet = 80 mg, By Mouth, Daily at bedtime, # 30 tablet, 0 Refills, Maintenance, 05/14/22 16:09:00 EDT, Tablet, [facility], Partial fill upon patient [...] 05/14/22 16:09:00 EDT, Route to Pharmacy Electronically, [facility], Partial fill upon patient [...] tablet, 0 Refills, Maintenance, 08/04/22 9:05:00 EST, [facility], 156, cm, 07/07/22 14:21:00 EST, Height, 116, kg, 05/04/22 19:13:00 EDT, Dry Weight Start Date: 08/04/22 Status: Ordered ferrous sulfate 325 mg oral enteric coated tablet 325 mg, By Mouth, Every Wednesday, Wednesday and Wednesday, # 30 tablet, Refills 0, Tot. Refills 0, Maintenance, 05/14/22 16:09:00 EDT, Route to Pharmacy Electronically, [facility], Partial fill upon patient [...] Start Date: 05/14/22 Status: Ordered nystatin topical 010656 u/gm powder See Instructions, APPLY TO AFFECTED AREA TWICE A DAY TO THE SKIN FOLDS NEEDED, # 30 Gm, 0 Refills, [facility], 15, APPLY TO AFFECTED AREA TWICE A [...] Team Personnel Name: Thomas Lomax RN Position: [facility] ED RN W/OE and Tasks Member Role: Primary Care Nurse Name: Mandy Hightower RN Position: [facility] RN Member Role: Primary Care Nurse Name: Akosua Moses RN Position: [facility] RN Member Role: Primary Care Nurse Name: Michelle Zambrano RN Position: [facility] RN Member Role: Primary Care Nurse Name: Stacie Ortiz RN Position: [facility] SN RN Member Role: Primary Care Nurse Name: Nicole Alvarado RN Position: [facility] RN Member Role: Primary Care Nurse Name: Pau Olmedo RN Position: [facility] RN Member Role: Primary Care Nurse Name: Rodrigo Noel RN Position: [facility] RN Member Role: Primary Care Nurse Name: Ximena Constantino RN Position: [facility] RN Member Role: Primary Care Nurse Name: Kylie Wilde RN Position: [facility] RN Member Role: Primary Care Nurse Name: Domenica Ramirez RN Position: [facility] RN Member Role: Primary Care Nurse Name: Klarissa oK RN Position: [facility] RN Member Role: Primary Care Nurse Name: Alma Lott RN Position: [facility] RN Member Role: Primary Care Nurse Name: Annemarie Alfred MD Position: Reference Physician Member Role: PCP Address: Address: [address] [place] [id number] Name: Caroline Shirley RN Position: [facility] RN Member Role: Primary Care Nurse Name: Tanisha Perez RN Position: [facility] RN Member Role: Primary Care Nurse Name: Chelle Ricardo RN Position: [facility] RN Member Role: Primary Care Nurse Name: Kelsi Kim RN Position: [facility] RN Member Role: Primary Care Nurse Name: Mireya Catherine RN Position: [facility] RN Member Role: Primary Care Nurse Name: Josefina Leonard RN Position: [facility] RN Member Role: Primary Care Nurse Name: Prem Barrera MD Position: [facility] Renal MD Member Role: Lifetime Consulting Physician Address: Address: [address] [place] [address] [address] [facility] [place] [address]- Name: Lata Hernandez RN Position: [facility] Time Lock Expert Member Role: Primary Care Nurse Name: Atul Molina MD Position: [facility] Renal MD Member Role: Lifetime Consulting Physician Address: Address: [address] [place] [address] [facility] [address] Name: Gema Jean Baptiste RN Position: [facility] RN Member Role: Primary Care Nurse Name: Esther Miller RN Position: [facility] RN Member Role: Primary Care Nurse Name: Siena Coleman RN Position: [facility] RN Member Role: Primary Care Nurse Name: Julia lAex RN Position: [facility] RN Member Role: Primary Care Nurse Name: Brandi Martinez RN Position: [facility] RN Member Role: Primary Care Nurse Name: Joann Moore RN Position: [facility] RN Member Role: Primary Care Nurse Name: Ramya Cook RN Position: [facility] Time Lock Expert Member Role: Primary Care Nurse Care Team Related Persons Name: HARVEY CASAS Address: [address] [place] [address]
--- OUTSIDE RECORDS SUMMARY | 2023-11-15 13:20 | XMS_ITS | Continuity of Care Document ---
Author Organization [facility] Address [address] [place] [address] [address] [place] [address]- Care Team Providers Care Chair Trimmer Name Role Phone Annemarie Alfred MD Primary Care Physician [phone] Encounter [facility] [place] Date(s): 10/07/22 - 11/14/22 [facility] [address] [place], [place] [address] Attending Physician: Fabien ORDAZ, Chandrika Allergies, Adverse Reactions, Alerts Substance Reaction Severity [...] 0 Refills, Maintenance, 05/14/22 16:10:00 EDT, Tablet, [facility], Partial fill upon patient request if the prescription is for a schedule II opioid drug., 156, cm, 05/14/22 15:10:00... Start Date: 05/14/22 Status: Ordered aspirin 81 mg oral delayed release tablet 81 mg, By Mouth, Daily, # 30 tablet, Refills 0, Tot. Refills 0, Maintenance, 05/14/22 16:09:00 EDT,Route to Pharmacy Electronically, [facility], Partial fill upon patient request if the prescription is for a schedule II opioid drug., 15... Start Date: 05/14/22 Status: Ordered atorvastatin 80 mg oral tablet 1 tablet = 80 mg, By Mouth, Daily at bedtime, # 30 tablet, 0 Refills, Maintenance, 05/14/22 16:09:00 EDT, Tablet, [facility], Partial fill upon patient request if [...] 05/14/22 16:09:00 EDT, Route to Pharmacy Electronically, [facility], Partial fill upon patient request if [...] tablet, 0 Refills, Maintenance, 08/04/22 9:05:00 EST, [id number], 156, cm, 07/07/22 14:21:00 EST, Height, 116, kg, 05/04/22 19:13:00 EDT, Dry Weight Start Date: 08/04/22 Status: Ordered ferrous sulfate 325 mg oral enteric coated tablet 325 mg, By Mouth, Every Wednesday, Wednesday and Wednesday, # 30 tablet, Refills 0, Tot. Refills 0, Maintenance, 05/14/22 16:09:00 EDT, Route to Pharmacy Electronically, [facility], Partial fill upon patient request if [...] Start Date: 05/14/22 Status: Ordered nystatin topical 832076 u/gm powder See Instructions, APPLY TO AFFECTED AREA TWICE A DAY TO THE SKIN FOLDS NEEDED, # 30 Gm, 0 Refills, [facility] STORE 23086, 15, APPLY TO AFFECTED AREA TWICE A DAY TO THE SKIN FOLDS NEEDED, 155, cm, 06/03/21 10:30:00 EST, Height, 111.36, kg, 04/07/21 11:... Start Date: 09/30/21 Status: Ordered omeprazole 20 mg oral delayed release tablet 1 tablet = 20 mg, By Mouth, Daily, # 30 tablet, 0 Refills, Maintenance, 04/17/22 18:01:00 EDT, CR Tablet, [facility]/pharmacy #[id number], Partial fill upon patient request if the prescription is for a schedule II opioid drug., 158, cm, 04/17/22 16:11:00 EDT, [facility]... Start Date: 04/17/22 Status: Ordered sulfamethoxazole-trimethoprim 800 mg-160 mg oral tablet 1 tablet, By Mouth, Every 12 hours, for 90 days, # 180 tablet, 3 Refills, Acute 10/03/23 10:49:00 EDT, 10/08/22 10:49:00 EDT, Tablet, [facility]/pharmacy #[id number], Partial fill upon patient request [...] Team Personnel Name: Thomas Lomax RN Position: [facility] ED RN W/OE and Tasks Member Role: Primary Care Nurse Name: Mandy Hightower RN Position: [facility] RN Member Role: Primary Care Nurse Name: Akosua Moses RN Position: [facility] RN Member Role: Primary Care Nurse Name: Michelle Zambrano RN Position: [facility] RN Member Role: Primary Care Nurse Name: Stacie Ortiz RN Position: [facility] RN Member Role: Primary Care Nurse Name: Nicole Alvarado RN Position: [facility] RN Member Role: Primary Care Nurse Name: Pau Olmedo RN Position: [facility] RN Member Role: Primary Care Nurse Name: Rodrigo Noel RN Position: [facility] RN Member Role: Primary Care Nurse Name: Ximena Constantino RN Position: [facility] RN Member Role: Primary Care Nurse Name: Kylie Wilde RN Position: [facility] RN Member Role: Primary Care Nurse Name: Domenica Ramirez RN Position: [facility] RN Member Role: Primary Care Nurse Name: Klarissa Ko RN Position: [facility] RN Member Role: Primary Care Nurse Name: Alma Lott RN Position: [facility] RN Member Role: Primary Care Nurse Name: Annemarie Alfred MD Position: Reference Physician Member Role: PCP Address: Address: [address] [place] [id number]- Name: Caroline Shirley RN Position: [facility] RN Member Role: Primary Care Nurse Name: Tanisha Perez RN Position: [facility] RN Member Role: Primary Care Nurse Name: Chelle Ricardo RN Position: [facility] RN Member Role: Primary Care Nurse Name: Kelsi Kim RN Position: [facility] RN Member Role: Primary Care Nurse Name: Mireya Catherine RN Position: [facility] RN Member Role: Primary Care Nurse Name: Josefina Leonard RN Position: [facility] RN Member Role: Primary Care Nurse Name: Prem Barrera MD Position: [facility] Renal MD Member Role: Lifetime Consulting Physician Address: Address: [address] [place] [address] [address] [facility] [place] [address]- Name: Lata Hernandez RN Position: [facility] Sand Control Worker Member Role: Primary Care Nurse Name: Atul Molina MD Position: [facility] Renal MD Member Role: Lifetime Consulting Physician Address: Address: [address] [place] [address] [facility] [place] [address]- Name: Gema Jean Baptiste RN Position: [facility] RN Member Role: Primary Care Nurse Name: Etsher Miller RN Position: [facility] RN Member Role: Primary Care Nurse Name: Siena Coleman RN Position: [facility] RN Member Role: Primary Care Nurse Name: Julia Alex RN Position: [facility] RN Member Role: Primary Care Nurse Name: Brandi Martinez RN Position: [facility] RN Member Role: Primary Care Nurse Name: Joann Moore RN Position: [facility] RN Member Role: Primary Care Nurse Name: Ramya Cook RN Position: [facility] Sand Control Worker Member Role: Primary Care Nurse Care Team Related Persons Name: HARVEY CASAS Address: home [address] [place] [address]
--- OUTSIDE RECORDS SUMMARY | 2023-11-15 13:20 | XMS_ITS | Continuity of Care Document ---
Author Organization [facility] Address [address] [place] [address]- Care Team Providers Care Senior Supplier Quality Engineer Name Role Phone Annemarie Alfred MD Primary Care Physician [phone] [place] [facility] [place] 07/02/22 - 08/01/22 [facility] [address] [place] [id number] Allergies, Adverse Reactions, Alerts Substance Reaction Severity [...] 0 Refills, Maintenance, 05/14/22 16:10:00 EDT, Tablet, [facility], Partial fill upon patient request if the prescription is for a schedule II opioid drug., 156, cm, 05/14/22 15:10:00... Start Date: 05/14/22 Status: Ordered aspirin 81 mg oral delayed release tablet 81 mg, By Mouth, Daily, # 30 tablet, Refills 0, Tot. Refills 0, Maintenance, 05/14/22 16:09:00 EDT,Route to Pharmacy Electronically, [facility], Partial fill upon patient request if the prescription is for a schedule II opioid drug., 15... Start Date: 05/14/22 Status: Ordered atorvastatin 80 mg oral tablet 1 tablet = 80 mg, By Mouth, Daily at bedtime, # 30 tablet, 0 Refills, Maintenance, 05/14/22 16:09:00 EDT, Tablet, [facility], Partial fill upon patient request [...] 05/14/22 16:09:00 EDT, Route to Pharmacy Electronically, [facility], Partial fill upon patient request [...] Ordered doxycycline hyclate 100 mg oral tablet 1 capsule, By Mouth, Every 12 hours, for 4 week(s), # 56 capsule, 0 Refills, Acute 08/04/22 15:00:00 EST, 07/07/22 15:00:00 EST, Capsule, [facility]/pharmacy #[id number], Partial fill upon patient request if the prescription is for a schedule II opioid drug., 156,... Start Date: 07/07/22 Stop Date: 08/04/22 Status: Ordered ferrous sulfate 325 mg oral enteric coated tablet 325 mg, By Mouth, Every Wednesday, Wednesday and Wednesday, # 30 tablet, Refills 0, Tot. Refills 0, Maintenance, 05/14/22 16:09:00 EDT, Route to Pharmacy Electronically, [facility], Partial fill upon patient request [...] Start Date: 05/14/22 Status: Ordered nystatin topical [id number] u/gm powder See Instructions, APPLY TO AFFECTED AREA TWICE A DAY TO THE SKIN FOLDS NEEDED, # 30 Gm, 0 Refills, [facility] STORE 69930, 15, APPLY TO AFFECTED AREA TWICE A [...] EDT, [facility]... Start Date: 04/17/22 Status: Ordered theophylline 400 mg/24 hours oral [...] Team Personnel Name: Thomas Lomax RN Position: [facility] ED RN W/OE and Tasks Member Role: Primary Care Nurse Name: Mandy Hightower RN Position: [facility] RN Member Role: Primary Care Nurse Name: Akosua Moses RN Position: [facility] RN Member Role: Primary Care Nurse Name: Michelle Zambrano RN Position: [facility] RN Member Role: Primary Care Nurse Name: Stacie Ortiz RN Position: [facility] SN RN Member Role: Primary Care Nurse Name: Nicole Alvarado RN Position: [facility] RN Member Role: Primary Care Nurse Name: Pau Olmedo RN Position: [facility] RN Member Role: Primary Care Nurse Name: Rodrigo Noel RN Position: [facility] RN Member Role: Primary Care Nurse Name: Ximena Constantino RN Position: [facility] RN Member Role: Primary Care Nurse Name: Kylie Wilde RN Position: [facility] RN Member Role: Primary Care Nurse Name: Domenica Ramirez RN Position: [facility] RN Member Role: Primary Care Nurse Name: Klarissa Ko RN Position: [facility] RN Member Role: Primary Care Nurse Name: Alma Lott RN Position: [facility] RN Member Role: Primary Care Nurse Name: Annemarie Alfred MD Position: Reference Physician Member Role: PCP Address: Address: [address] [place] [address] Name: Caroline Shirley RN Position: [facility] RN Member Role: Primary Care Nurse Name: Tanisha Perez RN Position: [facility] RN Member Role: Primary Care Nurse Name: Chelle Ricardo RN Position: [facility] RN Member Role: Primary Care Nurse Name: Kelsi Kim RN Position: [facility] RN Member Role: Primary Care Nurse Name: Mireya Catherine RN Position: [facility] RN Member Role: Primary Care Nurse Name: Josefina Leonard RN Position: [facility] RN Member Role: Primary Care Nurse Name: Prem Barrera MD Position: [facility] Renal MD Member Role: Lifetime Consulting Physician Address: Address: [facility] [address] [facility] [place] [address]- Name: Leah Silva RN Position: [facility] RN Member Role: Primary Care Nurse Name: Lata Hernandez RN Position: [facility] Ict Project Manager Member Role: Primary Care Nurse Name: Atul Molina MD Position: [facility] Renal MD Member Role: Lifetime Consulting Physician Address: Address: [address] [place] [address] [facility] [place] [address]- Name: Gema Jean Baptiste RN Position: [facility] RN Member Role: Primary Care Nurse Name: Esther Miller RN Position: [facility] RN Member Role: Primary Care Nurse Name: Siena Coleman RN Position: [facility] RN Member Role: Primary Care Nurse Name: Julia Alex RN Position: [facility] RN Member Role: Primary Care Nurse Name: Brandi Martinez RN Position: [facility] RN Member Role: Primary Care Nurse Name: Joann Moore RN Position: [facility] RN Member Role: Primary Care Nurse Name: Ramya Cook RN Position: [facility] Ict Project Manager Member Role: Primary Care Nurse Care Team Related Persons Name: HARVEY CASAS Address: home [address] [place] [id number]
--- OUTSIDE RECORDS SUMMARY | 2023-11-15 13:20 | XMS_ITS | Continuity of Care Document ---
Author Organization [facility] Address [address] [place] [address]- Care Team Providers Care Non Profit Financial Controller Name Role Phone Annemarie Alfred MD Primary Care Physician [phone] Encounter [facility] [place] Date(s): 09/03/22 - 10/03/22 [facility] [address] [place] [id number] Attending Physician: Admtr, Bethany Admitting Physician: Admtr, Ar8 Referring Physician: [...] 0 Refills, Maintenance, 05/14/22 16:10:00 EDT, Tablet, [facility], Partial fill upon patient request if the prescription is for a schedule II opioid drug., 156, cm, 05/14/22 15:10:00... Start Date: 05/14/22 Status: Ordered aspirin 81 mg oral delayed release tablet 81 mg, By Mouth, Daily, # 30 tablet, Refills 0, Tot. Refills 0, Maintenance, 05/14/22 16:09:00 EDT,Route to Pharmacy Electronically, [facility], Partial fill upon patient request if the prescription is for a schedule II opioid drug., 15... Start Date: 05/14/22 Status: Ordered atorvastatin 80 mg oral tablet 1 tablet = 80 mg, By Mouth, Daily at bedtime, # 30 tablet, 0 Refills, Maintenance, 05/14/22 16:09:00 EDT, Tablet, [facility], Partial fill upon patient request if [...] 05/14/22 16:09:00 EDT, Route to Pharmacy Electronically, [facility], Partial fill upon [...] tablet, 0 Refills, Maintenance, 08/04/22 9:05:00 EST, [id number], 156, cm, 07/07/22 14:21:00 EST, Height, 116, kg, 05/04/22 19:13:00 EDT, Dry Weight Start Date: 08/04/22 Status: Ordered ferrous sulfate 325 mg oral enteric coated tablet 325 mg, By Mouth, Every Wednesday, Wednesday and Wednesday, # 30 tablet, Refills 0, Tot. Refills 0, Maintenance, 05/14/22 16:09:00 EDT, Route to Pharmacy Electronically, [facility], Partial fill upon patient request if [...] Start Date: 05/14/22 Status: Ordered nystatin topical [id number] u/gm powder See Instructions, APPLY TO AFFECTED AREA TWICE A DAY TO THE SKIN FOLDS NEEDED, # 30 Gm, 0 Refills, [facility] STORE [address]9422, 15, APPLY TO AFFECTED AREA TWICE A [...] x 30 yrs; entered on: 05/22/21 Sex Note * Event Display: Non Lab Results Authored Date: * Event Display: Non Lab Results Authored Date: Patient Care team information Care Team Personnel [...] Stacie Ortiz RN Position: [facility] RN Member [...] Reference Physician Member Role: PCP Address: Address: [address] [place] [id number] Name: Caroline Shirley RN Position: [facility] [...] Role: Lifetime Consulting Physician Address: Address: [address] [place] [address] [facility] [place] [address]- Name: Lata Hernandez RN Position: [facility] Safe Deposit Clerk Member Role: Primary Care Nurse Name: Atul Molina MD Position: [facility] Renal MD Member Role: Lifetime Consulting Physician Address: Address: [address] [place] [address] [facility] [address] Name: Gema Jean Baptiste RN Position: [facility] [...] Care Nurse Name: Ramya Cook RN Position: [facility] Safe Deposit Clerk Member Role: Primary Care Nurse Care Team Related Persons Name: HARVEY CASAS Address: home [address] [place] [address]
--- OUTSIDE RECORDS SUMMARY | 2023-11-15 13:20 | XMS_ITS | Continuity of Care Document ---
Author Organization [facility] Address [address] [place] [address]- Care Team Providers Care Sticker Operator Name Role Phone Annemarie Alfred MD Primary Care Physician Encounter [facility] Date(s): 06/22/22 - 07/22/22 [facility] [address] [place] [id number] Allergies, Adverse Reactions, Alerts Substance Reaction Severity [...] 0 Refills, Maintenance, 05/14/22 16:10:00 EDT, Tablet, [facility], Partial fill upon patient request if the prescription is for a schedule II opioid drug., 156, cm, 05/14/22 15:10:00... Start Date: 05/14/22 Status: Ordered aspirin 81 mg oral delayed release tablet 81 mg, By Mouth, Daily, # 30 tablet, Refills 0, Tot. Refills 0, Maintenance, 05/14/22 16:09:00 EDT,Route to Pharmacy Electronically, [facility], Partial fill upon patient request if the prescription is for a schedule II opioid drug., 15... Start Date: 05/14/22 Status: Ordered atorvastatin 80 mg oral tablet 1 tablet = 80 mg, By Mouth, Daily at bedtime, # 30 tablet, 0 Refills, Maintenance, 05/14/22 16:09:00 EDT, Tablet, [facility], Partial fill upon patient [...] 05/14/22 16:09:00 EDT, Route to Pharmacy Electronically, [facility], Partial fill upon patient [...] 08/04/22 15:00:00 EST, 07/07/22 15:00:00 EST, Capsule, [facility]/pharmacy #[id number], Partial fill upon patient request if the prescription is for a schedule II opioid drug., 156,... Start Date: 07/07/22 Stop Date: 08/04/22 Status: Ordered ferrous sulfate 325 mg oral enteric coated tablet 325 mg, By Mouth, Every Wednesday, Wednesday and Wednesday, # 30 tablet, Refills 0, Tot. Refills 0, Maintenance, 05/14/22 16:09:00 EDT, Route to Pharmacy Electronically, [facility], Partial fill upon patient request [...] Start Date: 05/14/22 Status: Ordered nystatin topical [id number] u/gm powder See Instructions, APPLY TO AFFECTED AREA TWICE A DAY TO THE SKIN FOLDS NEEDED, # 30 Gm, 0 Refills, [facility], 15, APPLY TO AFFECTED AREA TWICE A DAY TO THE SKIN FOLDS NEEDED, 155, cm, 06/03/21 10:30:00 EST, Height, 111.36, kg, 04/07/21 11:... Start Date: 09/30/21 Status: Ordered omeprazole 20 mg oral delayed release tablet 1 tablet = 20 mg, By Mouth, Daily, # 30 tablet, 0 Refills, Maintenance, 04/17/22 18:01:00 EDT, CR Tablet, [facility]/pharmacy #[id number], Partial fill upon patient request [...] Team Personnel Name: Thomas Lomax RN Position: [facility] ED RN W/OE and Tasks Member Role: Primary Care Nurse Name: Mandy Hightower RN Position: [facility] RN Member Role: Primary Care Nurse Name: Akosua Moses RN Position: [facility] RN Member Role: Primary Care Nurse Name: Michelle Zambrano RN Position: [facility] RN Member Role: Primary Care Nurse Name: Stacie Ortiz RN Position: [facility] SN RN Member Role: Primary Care Nurse Name: Nicole Alvarado RN Position: [facility] RN Member Role: Primary Care Nurse Name: Pau Olmedo RN Position: [facility] RN Member Role: Primary Care Nurse Name: Rodrigo Noel RN Position: [facility] RN Member Role: Primary Care Nurse Name: Ximena Constantino RN Position: [facility] RN Member Role: Primary Care Nurse Name: Kylie Wilde RN Position: [facility] RN Member Role: Primary Care Nurse Name: Domenica Ramirez RN Position: [facility] RN Member Role: Primary Care Nurse Name: Klarissa Ko RN Position: [facility] RN Member Role: Primary Care Nurse Name: Alma Lott RN Position: [facility] RN Member Role: Primary Care Nurse Name: Annemarie Alfred MD Position: Reference Physician Member Role: PCP Address: Address: [address] [place] [address] Name: Caroline Shirley RN Position: [facility] RN Member Role: Primary Care Nurse Name: Tanisha Perez RN Position: [facility] RN Member Role: Primary Care Nurse Name: Chelle Ricardo RN Position: [facility] RN Member Role: Primary Care Nurse Name: Kelsi Kim RN Position: [facility] RN Member Role: Primary Care Nurse Name: Mireya Catherine RN Position: [facility] RN Member Role: Primary Care Nurse Name: Josefina Leonard RN Position: [facility] RN Member Role: Primary Care Nurse Name: Prem Barrera MD Position: [facility] Renal MD Member Role: Lifetime Consulting Physician Address: Address: [address] [place] [address] [address] [facility] [place] [address]- Name: Leah Silva RN Position: [facility] RN Member Role: Primary Care Nurse Name: Lata Hernandez RN Position: [facility] Correctional Officer Member Role: Primary Care Nurse Name: Atul Molina MD Position: [facility] Renal MD Member Role: Lifetime Consulting Physician Address: Address: [address] [place] [address] [facility] [place] [address]- Name: Gema Jean Baptiste RN Position: [facility] RN Member Role: Primary Care Nurse Name: Esther Miller RN Position: [facility] RN Member Role: Primary Care Nurse Name: Siena Coleman RN Position: [facility] RN Member Role: Primary Care Nurse Name: Julia Alex RN Position: [facility] RN Member Role: Primary Care Nurse Name: Brandi Martinez RN Position: [facility] RN Member Role: Primary Care Nurse Name: Joann Moore RN Position: [facility] RN Member Role: Primary Care Nurse Name: Ramya Cook RN Position: [facility] Correctional Officer Member Role: Primary Care Nurse Care Team Related Persons Name: HARVEY CASAS Address: home [address] [place] [address]
--- OUTSIDE RECORDS SUMMARY | 2023-11-15 13:20 | XMS_ITS | Continuity of Care Document ---
Author Organization [facility] Address [address] [place] [address]- Care Team Providers Care Property Maintenance Technician Name Role Phone Annemarie Alfred MD Primary Care Physician [phone] [place] [facility] [place]): [place] 08/[place]/23 [facility] [address] [place] [id number] Attending Physician: AdmtrBethany Admitting Physician: AdmtrBethany Referring Physician: Admtr, Ar8 Allergies, Adverse Reactions, [...] 0 Refills, Maintenance, 05/14/22 16:10:00 EDT, Tablet, [facility], Partial fill upon patient request if the prescription is for a schedule II opioid drug., 156, cm, 05/14/22 15:10:00... Start Date: 05/14/22 Status: Ordered aspirin 81 mg oral delayed release tablet 81 mg, By Mouth, Daily, # 30 tablet, Refills 0, Tot. Refills 0, Maintenance, 05/14/22 16:09:00 EDT,Route to Pharmacy Electronically, [facility], Partial fill upon patient request if the prescription is for a schedule II opioid drug., 15... Start Date: 05/14/22 Status: Ordered atorvastatin 80 mg oral tablet 1 tablet = 80 mg, By Mouth, Daily at bedtime, # 30 tablet, 0 Refills, Maintenance, 05/14/22 16:09:00 EDT, Tablet, [facility], Partial fill upon patient request [...] 05/14/22 16:09:00 EDT, Route to Pharmacy Electronically, [facility], Partial fill upon patient request [...] tablet, 0 Refills, Maintenance, 08/04/22 9:05:00 EST, [id number], 156, cm, 07/07/22 14:21:00 EST, Height, 116, kg, 05/04/22 19:13:00 EDT, Dry Weight Start Date: 08/04/22 Status: Ordered ferrous sulfate 325 mg oral enteric coated tablet 325 mg, By Mouth, Every Wednesday, Wednesday and Wednesday, # 30 tablet, Refills 0, Tot. Refills 0, Maintenance, 05/14/22 16:09:00 EDT, Route to Pharmacy Electronically, [facility], Partial fill upon patient request [...] Start Date: 05/14/22 Status: Ordered nystatin topical 935686 u/gm powder See Instructions, APPLY TO AFFECTED AREA TWICE A DAY TO THE SKIN FOLDS NEEDED, # 30 Gm, 0 Refills, [facility]996, 15, APPLY TO AFFECTED AREA TWICE A DAY TO THE SKIN FOLDS NEEDED, 155, cm, 06/03/21 10:30:00 EST, Height, 111.36, kg, 04/07/21 11:... Start Date: 09/30/21 Status: Ordered omeprazole 20 mg oral delayed release tablet 1 tablet = 20 mg, By Mouth, Daily, # 30 tablet, 0 Refills, Maintenance, 04/17/22 18:01:00 EDT, CR Tablet, [facility]/pharmacy #[id number], Partial fill upon patient request if the prescription is for a schedule II opioid drug., 158, cm, 04/17/22 16:11:00 EDT, [facility]... Start Date: 04/17/22 Status: Ordered sulfamethoxazole-trimethoprim 800 mg-160 mg oral tablet 1 tablet, By Mouth, Every 12 hours, for 90 days, # 180 tablet, 3 Refills, Acute 10/03/23 10:49:00 EDT, 10/08/22 10:49:00 EDT, Tablet, [facility]/pharmacy #[id number], Partial fill upon patient request if the prescription is for a schedule II opioid drug., 1 tablet... Start Date: 10/08/22 Stop Date: 10/03/23 Status: Ordered sulfamethoxazole-trimethoprim 800 mg-160 mg oral tablet 1 tablet, By Mouth, Every 12 hours, for 90 days, # 180 tablet, 3 Refills, Acute 09/27/24 10:49:00 EST, 10/03/23 10:49:00 EDT, Tablet, [facility]/pharmacy #[id number], Partial fill upon patient request if the prescription is for a schedule II opioid drug., 1 tablet... Start Date: 10/03/23 Stop Date: 09/27/24 Status: Ordered theophylline 400 mg/24 hours oral [...] x 30 yrs; entered on: 05/22/21 Sex Laboratory * Event Display: Non Lab Results Authored Date: * Event Display: Non Lab Results Authored Date: * Event Display: Non Lab Results Authored Date: Patient Care team information Care Team Personnel Name: Thomas Lomax RN Position: [facility] ED RN W/OE and Tasks Member Role: Primary Care Nurse Name: Mandy Hightower RN Position: [facility] RN Member Role: Primary Care Nurse Name: Akosua Moses RN Position: [facility] RN Member Role: Primary Care Nurse Name: Michelle Zambrano RN Position: [facility] RN Member Role: Primary Care Nurse Name: Stacie Ortiz RN Position: [facility] RN Member Role: Primary Care Nurse Name: Nicole Alvarado RN Position: [facility] RN Member Role: Primary Care Nurse Name: Pau Olmedo RN Position: [facility] RN Member Role: Primary Care Nurse Name: Rodrigo Noel RN Position: [facility] RN Member Role: Primary Care Nurse Name: Ximena Constantino RN Position: [facility] SN RN Member Role: Primary Care Nurse Name: Kylie Wilde RN Position: [facility] RN Member Role: Primary Care Nurse Name: Domenica Ramirez RN Position: [facility] RN Member Role: Primary Care Nurse Name: Klarissa Ko RN Position: [facility] RN Member Role: Primary Care Nurse Name: Alma Lott RN Position: [facility] SN RN Member Role: Primary Care Nurse Name: Annemarie Alfred MD Position: Reference Physician Member Role: PCP Address: Address: [address] [place] [address]- Name: Caroline Shirley RN Position: [facility] RN Member Role: Primary Care Nurse Name: Chelle Ricardo RN Position: [facility] RN Member Role: Primary Care Nurse Name: Kelsi Kim RN Position: [facility] RN Member Role: Primary Care Nurse Name: Mireya Catherine RN Position: [facility] RN Member Role: Primary Care Nurse Name: Josefina Leonard RN Position: [facility] RN Member Role: Primary Care Nurse Name: Prem Barrera MD Position: [facility] Renal MD Member Role: Lifetime Consulting Physician Address: Address: [address] [place] [address] [facility] [place] [address]- Name: Lata Hernandez RN Position: [facility] Computer Artist Member Role: Primary Care Nurse Name: Atul Molina MD Position: [facility] Renal MD Member Role: Lifetime Consulting Physician Address: Address: [address] [place] [address] [facility] [place] [address]- Name: Gema Jean Baptiste RN Position: [facility] RN Member Role: Primary Care Nurse Name: Esther Miller RN Position: [facility] RN Member Role: Primary Care Nurse Name: Siena Coleman RN Position: [facility] RN Member Role: Primary Care Nurse Name: Julia Alex RN Position: [facility] RN Member Role: Primary Care Nurse Name: Brandi Martinez RN Position: [facility] RN Member Role: Primary Care Nurse Name: Jaonn Moore RN Position: [facility] RN Member Role: Primary Care Nurse Name: Ramya Cook RN Position: [facility] Computer Artist Member Role: Primary Care Nurse Care Team Related Persons Name: HARVEY CASAS Address: [address] [place] [address]
--- OUTSIDE RECORDS SUMMARY | 2023-11-15 13:20 | XMS_ITS | Continuity of Care Document ---
Author Organization [facility] Address [address] [place] [address]- Care Team Providers Care Energy Operations Vice President Name Role Phone Annemarie Alfred MD Primary Care Physician Encounter [facility] [place] Date(s): 10/07/22 - 12/20/22 [facility] [address] [place] [id number] Attending Physician: Hugh Quintana MD Admitting Physician: Hugh Quintana MD Referring Physician: Annemarie Alfred MD Allergies, [...] Maintenance, 05/14/22 16:09:00 EDT,Route to Pharmacy Electronically, [facility], Partial fill upon patient request if the prescription is for a schedule II opioid drug., 15... Start Date: 05/14/22 Status: Ordered atorvastatin 80 mg oral tablet 1 tablet = 80 mg, By Mouth, Daily at bedtime, # 30 tablet, 0 Refills, Maintenance, 05/14/22 16:09:00 EDT, Tablet, [facility] 3, Partial fill upon patient request [...] 13:05:00 EDT Start Date: 02/05/21 Status: Ordered cephalexin monohydrate 500 mg oral capsule 1 capsule = 500 mg, By Mouth, 4 times a day, for 14 days, # 56 capsule, 0 Refills, Acute 12/27/22 18:29:00 EDT, 12/13/22 18:29:00 EDT, Capsule, [facility] #[id number], Partial fill upon patient request if the prescription is for a schedule II opioid drug.... Start Date: 12/13/22 Stop Date: 12/27/22 Status: Ordered clonazePAM 0.5 mg oral tablet [...] Route to Pharmacy Electronically, [facility], Partial fill upon patient request [...] tablet, 0 Refills, Maintenance, 08/04/22 9:05:00 EST, [facility]11, 156, cm, 07/07/22 14:21:00 EST, Height, 116, kg, 05/04/22 19:13:00 EDT, Dry Weight Start Date: 08/04/22 Status: Ordered ferrous sulfate 325 mg oral enteric coated tablet 325 mg, By Mouth, Every Wednesday, Wednesday and Wednesday, # 30 tablet, Refills 0, Tot. Refills 0, Maintenance, 05/14/22 16:09:00 EDT, Route to Pharmacy Electronically, [facility], Partial fill upon patient request [...] Start Date: 05/14/22 Status: Ordered nystatin topical 396073 u/gm powder See Instructions, APPLY TO AFFECTED AREA TWICE A DAY TO THE SKIN FOLDS NEEDED, # 30 Gm, 0 Refills, [facility], 15, APPLY TO AFFECTED AREA TWICE A DAY TO THE SKIN FOLDS NEEDED, 155, cm, 06/03/21 10:30:00 EST, Height, 111.36, kg, 04/07/21 11:... Start Date: 09/30/21 Status: Ordered omeprazole 20 mg oral delayed release tablet 1 tablet = 20 mg, By Mouth, Daily, # 30 tablet, 0 Refills, Maintenance, 04/17/22 18:01:00 EDT, CR Tablet, [facility] #2071, Partial fill upon patient request if [...] Team Personnel Name: Thomas Lomax RN Position: [facility] ED RN W/OE and Tasks Member Role: Primary Care Nurse Name: Mandy Hightower RN Position: [facility] RN Member Role: Primary Care Nurse Name: Akosua Moses RN Position: [facility] RN Member Role: Primary Care Nurse Name: Michelle Zambrano RN Position: [facility] RN Member Role: Primary Care Nurse Name: Stacie Ortiz RN Position: [facility] SN RN Member Role: Primary Care Nurse Name: Nicole Alvarado RN Position: [facility] RN Member Role: Primary Care Nurse Name: Pau Olmedo RN Position: [facility] RN Member Role: Primary Care Nurse Name: Rodrigo Noel RN Position: [facility] RN Member Role: Primary Care Nurse Name: Ximena Constantino RN Position: [facility] RN Member Role: Primary Care Nurse Name: Kylie Wilde RN Position: [facility] RN Member Role: Primary Care Nurse Name: Domenica Ramirez RN Position: [facility] RN Member Role: Primary Care Nurse Name: Klarissa Ko RN Position: [facility] RN Member Role: Primary Care Nurse Name: Alma Lott RN Position: [facility] RN Member Role: Primary Care Nurse Name: Annemarie Alfred MD Position: Reference Physician Member Role: PCP Address: Address: [address] [place] [id number]- Name: Caroline Shirley RN Position: [facility] RN Member Role: Primary Care Nurse Name: Tanisha Perez RN Position: [facility] RN Member Role: Primary Care Nurse Name: Chelle Ricardo RN Position: [facility] RN Member Role: Primary Care Nurse Name: Kelsi Kim RN Position: [facility] RN Member Role: Primary Care Nurse Name: Mireya Catherine RN Position: [facility] RN Member Role: Primary Care Nurse Name: Josefina Leonard RN Position: [facility] RN Member Role: Primary Care Nurse Name: Prem Barrera MD Position: [facility] Renal MD Member Role: Lifetime Consulting Physician Address: Address: [address] [place] [address] [address] [facility] [place] [address]- Name: Lata Hernandez RN Position: [facility] Poultry Field Service Technician Member Role: Primary Care Nurse Name: Atul Molina MD Position: [facility] Renal MD Member Role: Lifetime Consulting Physician Address: Address: [address] [place] [address] [facility] [place], [place] [address] Name: Gema Jean Baptiste RN Position: [facility] RN Member Role: Primary Care Nurse Name: Esther Miller RN Position: [facility] RN Member Role: Primary Care Nurse Name: Siena Coleman RN Position: [facility] RN Member Role: Primary Care Nurse Name: Julia Alex RN Position: [facility] RN Member Role: Primary Care Nurse Name: Brandi Martinez RN Position: [facility] RN Member Role: Primary Care Nurse Name: Joann Moore RN Position: [facility] RN Member Role: Primary Care Nurse Name: Ramya Cook RN Position: [facility] Poultry Field Service Technician Member Role: Primary Care Nurse Care Team Related Persons Name: HARVEY CASAS Address: [address] [address]
--- OUTSIDE RECORDS SUMMARY | 2023-11-15 13:20 | XMS_ITS | Continuity of Care Document ---
Author Organization [facility] Address Adult Weight Managem ent [address] [place] [address]- Care Team Providers Care Chef'S Assistant Name Role Phone Tima ORDAZ, Annemarie Slater Primary Care Physician [phone] Encounter [facility] Date(s): 08/06/22 - 09/05/22 [facility] Adult Weight Management [address] [place] [id number]- Allergies, Adverse Reactions, Alerts Substance Reaction Severity [...] 0 Refills, Maintenance, 05/14/22 16:10:00 EDT, Tablet, [facility], Partial fill upon patient request if the prescription is for a schedule II opioid drug., 156, cm, 05/14/22 15:10:00... Start Date: 05/14/22 Status: Ordered aspirin 81 mg oral delayed release tablet 81 mg, By Mouth, Daily, # 30 tablet, Refills 0, Tot. Refills 0, Maintenance, 05/14/22 16:09:00 EDT,Route to Pharmacy Electronically, [facility], Partial fill upon patient request if the prescription is for a schedule II opioid drug., 15... Start Date: 05/14/22 Status: Ordered atorvastatin 80 mg oral tablet 1 tablet = 80 mg, By Mouth, Daily at bedtime, # 30 tablet, 0 Refills, Maintenance, 05/14/22 16:09:00 EDT, Tablet, [facility] 3, Partial fill upon patient [...] 05/14/22 16:09:00 EDT, Route to Pharmacy Electronically, [facility], Partial fill upon patient [...] tablet, 0 Refills, Maintenance, 08/04/22 9:05:00 EST, [facility]254, 156, cm, 07/07/22 14:21:00 EST, Height, 116, kg, 05/04/22 19:13:00 EDT, Dry Weight Start Date: 08/04/22 Status: Ordered ferrous sulfate 325 mg oral enteric coated tablet 325 mg, By Mouth, Every Wednesday, Wednesday and Wednesday, # 30 tablet, Refills 0, Tot. Refills 0, Maintenance, 05/14/22 16:09:00 EDT, Route to Pharmacy Electronically, [facility], Partial fill upon patient [...] Start Date: 05/14/22 Status: Ordered nystatin topical [id number] u/gm powder See Instructions, APPLY TO AFFECTED AREA TWICE A DAY TO THE SKIN FOLDS NEEDED, # 30 Gm, 0 Refills, [facility]ORE 22521, 15, APPLY TO AFFECTED AREA TWICE A DAY TO THE SKIN FOLDS NEEDED, 155, cm, 06/03/21 10:30:00 EST, Height, 111.36, kg, 04/07/21 11:... Start Date: 09/30/21 Status: Ordered omeprazole 20 mg oral delayed release tablet 1 tablet = 20 mg, By Mouth, Daily, # 30 tablet, 0 Refills, Maintenance, 04/17/22 18:01:00 EDT, CR Tablet, [facility]/pharmacy #[id number], Partial fill upon patient request if the prescription is for a schedule II opioid drug., 158, cm, 04/17/22 16:11:00 EDT, [facility]... Start Date: 04/17/22 Status: Ordered sulfamethoxazole-trimethoprim 800 mg-160 mg oral tablet 1 tablet, By Mouth, Every 12 hours, for 14 days, # 28 tablet, 3 Refills, Acute 10/08/22 10:49:00 EDT, 08/13/22 10:49:00 EST, Tablet, [facility]/pharmacy #[id number], Partial fill upon patient [...] Team Personnel Name: Thomas Lomax RN Position: [facility] ED RN W/OE and Tasks Member Role: Primary Care Nurse Name: Mandy Hightower RN Position: [facility] RN Member Role: Primary Care Nurse Name: Akosua Moses RN Position: [facility] RN Member Role: Primary Care Nurse Name: Michelle Zambrano RN Position: [facility] RN Member Role: Primary Care Nurse Name: Stacie Ortiz RN Position: [facility] SN RN Member Role: Primary Care Nurse Name: Nicole Alvarado RN Position: [facility] RN Member Role: Primary Care Nurse Name: Pau Olmedo RN Position: [facility] RN Member Role: Primary Care Nurse Name: Rodrigo Noel RN Position: [facility] RN Member Role: Primary Care Nurse Name: Ximena Constantino RN Position: [facility] RN Member Role: Primary Care Nurse Name: Kylie Wilde RN Position: [facility] RN Member Role: Primary Care Nurse Name: Domenica Ramirez RN Position: [facility] RN Member Role: Primary Care Nurse Name: Klarissa Ko RN Position: [facility] RN Member Role: Primary Care Nurse Name: Alma Lott RN Position: [facility] RN Member Role: Primary Care Nurse Name: Annemarie Alfred MD Position: Reference Physician Member Role: PCP Address: Address: [address] [place] [id number]- [place] Name: Caroline Shirley RN Position: [facility] RN Member Role: Primary Care Nurse Name: Tanisha Perez RN Position: [facility] RN Member Role: Primary Care Nurse Name: Chelle Ricardo RN Position: [facility] RN Member Role: Primary Care Nurse Name: Kelsi Kim RN Position: [facility] RN Member Role: Primary Care Nurse Name: Mireya Catherine RN Position: [facility] RN Member Role: Primary Care Nurse Name: Josefina Leonard RN Position: [facility] RN Member Role: Primary Care Nurse Name: Prem Barrera MD Position: [facility] Renal MD Member Role: Lifetime Consulting Physician Address: Address: [address] [place] [address] [address] [facility] [place] [address]- Name: Leah Silva RN Position: [facility] RN Member Role: Primary Care Nurse Name: Lata Hernandez RN Position: [facility] Waste Water Or Water Plant Operator Member Role: Primary Care Nurse Name: Atul Molina MD Position: [facility] Renal MD Member Role: Lifetime Consulting Physician Address: Address: [address] [place] [address] [facility] [place] [address]- Name: Gema Jean Baptiste RN Position: [facility] RN Member Role: Primary Care Nurse Name: Esther Miller RN Position: [facility] RN Member Role: Primary Care Nurse Name: Siena Coleman RN Position: [facility] RN Member Role: Primary Care Nurse Name: Julia Alex RN Position: [facility] RN Member Role: Primary Care Nurse Name: Brandi Martinez RN Position: [facility] RN Member Role: Primary Care Nurse Name: Joann Moore RN Position: [facility] RN Member Role: Primary Care Nurse Name: Ramya Cook RN Position: [facility] [employer] Water Plant Operator Member Role: Primary Care Nurse Care Team Related Persons Name: HARVEY CASAS Address: [address] [place] [address]
--- OUTSIDE RECORDS SUMMARY | 2023-11-15 13:20 | XMS_ITS | Continuity of Care Document ---
Author Organization [facility] ter Address [address] [place] [id number]- Care Team Providers Care Driller Machine Name Role Phone Annemarie Alfred MD Primary Care Physician Encounter [facility] Date(s): 05/14/22 - 06/13/[address] [id number] Attending Physician: Not on Staff, Attending MD Admitting Physician: Not on Staff, Admitting MD Referring Physician: Not on Staff, Referring [...] Refills, Maintenance, 05/14/22 16:10:00 EDT, Tablet, [facility], Partial fill upon patient request if the prescription is for a schedule II opioid drug., 156, cm, 05/14/22 15:10:00... Start Date: 05/14/22 Status: Ordered aspirin 81 mg oral delayed release tablet 81 mg, By Mouth, Daily, # 30 tablet, Refills 0, Tot. Refills 0, Maintenance, 05/14/22 16:09:00 EDT,Route to Pharmacy Electronically, [facility], Partial fill upon patient request if the prescription is for a schedule II opioid drug., 15... Start Date: 05/14/22 Status: Ordered atorvastatin 80 mg oral tablet 1 tablet = 80 mg, By Mouth, Daily at bedtime, # 30 tablet, 0 Refills, Maintenance, 05/14/22 16:09:00 EDT, Tablet, [facility] 3, Partial fill upon patient request [...] 16:09:00 EDT, Route to Pharmacy Electronically, [facility], Partial fill upon patient request [...] Ordered doxycycline hyclate 100 mg oral tablet = 100 mg, By Mouth, Every 12 hours, # 60 tablet, 0 Refills, Acute 06/15/22 14:07:00 EST, 05/14/22 14:05:00 EDT, Tablet, [facility], Partial fill upon patient request if the prescriptionis for a schedule II opioid drug., 156, cm, ... Start Date: 05/14/22 Stop Date: 06/15/22 Status: Ordered doxycycline hyclate 100 mg oral tablet 1 capsule, By Mouth, Every 12 hours, for 4 week(s), # 56 capsule, 0 Refills, Acute 07/08/22 16:00:00 EST, 06/10/22 16:00:00 EST, Capsule, [facility], Partial fill upon patient request if the prescription is for a schedule II opioid drug.... Start Date: 06/10/22 Stop Date: 07/08/22 Status: Ordered ferrous sulfate 325 mg oral enteric coated tablet 325 mg, By Mouth, Every Wednesday, Wednesday and Wednesday, # 30 tablet, Refills 0, Tot. Refills 0, Maintenance, 05/14/22 16:09:00 EDT, Route to Pharmacy Electronically, [facility], Partial fill upon patient request [...] Start Date: 05/14/22 Status: Ordered nystatin topical [id number] u/gm powder See Instructions, APPLY TO AFFECTED AREA TWICE A DAY TO THE SKIN FOLDS NEEDED, # 30 Gm, 0 Refills, [facility], 15, APPLY TO AFFECTED AREA TWICE A DAY TO THE SKIN FOLDS NEEDED, 155, cm, 06/03/21 10:30:00 EST, Height, 111.36, kg, 04/07/21 11:... Start Date: 09/30/21 Status: Ordered omeprazole 20 mg oral delayed release tablet 1 tablet = 20 mg, By Mouth, Daily, # 30 tablet, 0 Refills, Maintenance, 04/17/22 18:01:00 EDT, CR Tablet, [facility] #[id number], Partial fill upon patient request if [...] Team Personnel Name: Thomas Lomax RN Position: [facility] ED RN W/OE and Tasks Member Role: Primary Care Nurse Name: Mandy Hightower RN Position: [facility] RN Member Role: Primary Care Nurse Name: Akosua Moses RN Position: [facility] RN Member Role: Primary Care Nurse Name: Michelle Zambrano RN Position: [facility] RN Member Role: Primary Care Nurse Name: Stacie Ortiz RN Position: [facility] SN RN Member Role: Primary Care Nurse Name: Nicole Alvarado RN Position: [facility] RN Member Role: Primary Care Nurse Name: Pau Olmedo RN Position: [facility] RN Member Role: Primary Care Nurse Name: Rodrigo Noel RN Position: [facility] RN Member Role: Primary Care Nurse Name: Kylie Wilde RN Position: [facility] RN Member Role: Primary Care Nurse Name: Domenica Ramirez RN Position: [facility] RN Member Role: Primary Care Nurse Name: Ximena Ignacio RN Position: [facility] RN Member Role: Primary Care Nurse Name: Klarissa Ko RN Position: [facility] RN Member Role: Primary Care Nurse Name: Alma Lott RN Position: [facility] RN Member Role: Primary Care Nurse Name: Annemarie Alfred MD Position: Reference Physician Member Role: PCP Address: Address: [address] [place] [id number] Name: Caroline Shirley RN Position: [facility] RN Member Role: Primary Care Nurse Name: Tanisha Perez RN Position: [facility] RN Member Role: Primary Care Nurse Name: Chelle Ricardo RN Position: [facility] RN Member Role: Primary Care Nurse Name: Kelsi Kim RN Position: [facility] RN Member Role: Primary Care Nurse Name: Mireya Catherine RN Position: [facility] RN Member Role: Primary Care Nurse Name: Josefina Leonard RN Position: [facility] RN Member Role: Primary Care Nurse Name: Prem Barrera MD Position: [facility] Renal MD Member Role: Lifetime Consulting Physician Address: Address: [address] [place] [address] [address] [facility] [place] [address]- Name: Leah Silva RN Position: [facility] RN Member Role: Primary Care Nurse Name: Lata Hernandez RN Position: [facility] Delivery Person Member Role: Primary Care Nurse Name: Atul Molina MD Position: [facility] Renal MD Member Role: Lifetime Consulting Physician Address: Address: [address] [place] [address] [facility] [place] [address]- Name: Gema Jean Baptiste RN Position: [facility] RN Member Role: Primary Care Nurse Name: Esther Miller RN Position: [facility] RN Member Role: Primary Care Nurse Name: Siena Coleman RN Position: [facility] RN Member Role: Primary Care Nurse Name: Julia Alex RN Position: [facility] RN Member Role: Primary Care Nurse Name: Brandi Martinez RN Position: [facility] RN Member Role: Primary Care Nurse Name: Joann Moore RN Position: [facility] RN Member Role: Primary Care Nurse Name: Ramya Cook RN Position: [facility] Delivery Person Member Role: Primary Care Nurse Care Team Related Persons Name: HARVEY CASAS Address: [address] [place] [address]
--- OUTSIDE RECORDS SUMMARY | 2023-11-15 13:20 | XMS_ITS | Continuity of Care Document ---
Author Organization [facility] Address [address] [place] [address]- Care Team Providers Care Cosmetic Surgeon Name Role Phone Annemarie Alfred MD Primary Care Physician Encounter [facility] Date(s): 03/08/23 - 07/03/23 [facility] [address] [place] [id number] Attending Physician: Devonte Merrill MD Admitting Physician: Devonte Merrill MD Referring Physician: Annemarie Alfred MD Allergies, [...] 0 Refills, Maintenance, 05/14/22 16:10:00 EDT, Tablet, [facility], Partial fill upon patient request if the prescription is for a schedule II opioid drug., 156, cm, 05/14/22 15:10:00... Start Date: 05/14/22 Status: Ordered aspirin 81 mg oral delayed release tablet 81 mg, By Mouth, Daily, # 30 tablet, Refills 0, Tot. Refills 0, Maintenance, 05/14/22 16:09:00 EDT,Route to Pharmacy Electronically, [facility], Partial fill upon patient request if the prescription is for a schedule II opioid drug., 15... Start Date: 05/14/22 Status: Ordered atorvastatin 80 mg oral tablet 1 tablet = 80 mg, By Mouth, Daily at bedtime, # 30 tablet, 0 Refills, Maintenance, 05/14/22 16:09:00 EDT, Tablet, [facility] 3, Partial fill upon patient request [...] 05/14/22 16:09:00 EDT, Route to Pharmacy Electronically, [facility], Partial fill upon [...] tablet, 0 Refills, Maintenance, 08/04/22 9:05:00 EST, [facility], 156, cm, 07/07/22 14:21:00 EST, Height, 116, kg, 05/04/22 19:13:00 EDT, Dry Weight Start Date: 08/04/22 Status: Ordered ferrous sulfate 325 mg oral enteric coated tablet 325 mg, By Mouth, Every Wednesday, Wednesday and Wednesday, # 30 tablet, Refills 0, Tot. Refills 0, Maintenance, 05/14/22 16:09:00 EDT, Route to Pharmacy Electronically, [facility], Partial [...] Start Date: 05/14/22 Status: Ordered nystatin topical [id number] u/gm powder See Instructions, APPLY TO AFFECTED AREA TWICE A DAY TO THE SKIN FOLDS NEEDED, # 30 Gm, 0 Refills, [facility], 15, APPLY TO AFFECTED AREA TWICE A DAY TO THE SKIN FOLDS NEEDED, 155, cm, 06/03/21 10:30:00 EST, Height, 111.36, kg, 04/07/21 11:... Start Date: 09/30/21 Status: Ordered omeprazole 20 mg oral delayed release tablet 1 tablet = 20 mg, By Mouth, Daily, # 30 tablet, 0 Refills, Maintenance, 04/17/22 18:01:00 EDT, CR Tablet, [facility]/pharmacy #[id number], Partial fill upon patient request if the prescription is for a schedule II opioid drug., 158, cm, 04/17/22 16:11:00 EDT, [facility]... Start Date: 04/17/22 Status: Ordered sulfamethoxazole-trimethoprim 800 mg-160 mg oral tablet 1 tablet, By Mouth, Every 12 hours, for 90 days, # 180 tablet, 3 Refills, Acute 10/03/23 10:49:00 EDT, 10/08/22 10:49:00 EDT, Tablet, [facility]/pharm[facility] #[id number], Partial fill upon patient request if the prescription is for a schedule II opioid drug., 1 tablet... Start Date: 10/08/22 Stop Date: 10/03/23 Status: Ordered sulfamethoxazole-trimethoprim 800 mg-160 mg oral tablet 1 tablet, By Mouth, Every 12 hours, for 90 days, # 180 tablet, 3 Refills, Acute 09/27/24 10:49:00 EST, 10/03/23 10:49:00 EDT, Tablet, [id number], Partial fill upon patient request if the [...] Team Personnel Name: Thomas Lomax RN Position: [facility] ED RN W/OE and Tasks Member Role: Primary Care Nurse Name: Mandy Hightower RN Position: [facility] RN Member Role: Primary Care Nurse Name: Akosua Moses RN Position: [facility] RN Member Role: Primary Care Nurse Name: Michelle Zambrano RN Position: [facility] RN Member Role: Primary Care Nurse Name: Stacie Ortiz RN Position: [facility] SN RN Member Role: Primary Care Nurse Name: Nicole Alvarado RN Position: [facility] RN Member Role: Primary Care Nurse Name: Pau Olmedo RN Position: [facility] RN Member Role: Primary Care Nurse Name: Rodrigo Noel RN Position: [facility] RN Member Role: Primary Care Nurse Name: Ximena Constantino RN Position: [facility] SN RN Member Role: Primary Care Nurse Name: Kylie Wilde RN Position: [facility] RN Member Role: Primary Care Nurse Name: Domenica Ramirez RN Position: [facility] RN Member Role: Primary Care Nurse Name: Klarissa Ko RN Position: [facility] RN Member Role: Primary Care Nurse Name: Alma Lott RN Position: [facility] RN Member Role: Primary Care Nurse Name: Annemarie Alfred MD Position: Reference Physician Member Role: PCP Address: Address: [address] [place] [id number]- Name: Caroline Shirley RN Position: [facility] RN Member Role: Primary Care Nurse Name: Tanisha Perez RN Position: [facility] RN Member Role: Primary Care Nurse Name: Chelle Ricardo RN Position: [facility] RN Member Role: Primary Care Nurse Name: Kelsi Kim RN Position: [facility] RN Member Role: Primary Care Nurse Name: Mireya Catherine RN Position: [facility] RN Member Role: Primary Care Nurse Name: Josefina Leonard RN Position: [facility] RN Member Role: Primary Care Nurse Name: Prem Barrera MD Position: [facility] Renal MD Member Role: Lifetime Consulting Physician Address: Address: [address] [place] [address] [address] [facility] [place] [address]- Name: Lata Hernandez RN Position: [facility] Patient Accounts Manager Member Role: Primary Care Nurse Name: Atul Molina MD Position: [facility] Renal MD Member Role: Lifetime Consulting Physician Address: Address: [address] [place] [address] [facility] [place] [address]- Name: Gema Jean Baptiste RN Position: [facility] RN Member Role: Primary Care Nurse Name: Esther Miller RN Position: [facility] RN Member Role: Primary Care Nurse Name: Siena Coleman RN Position: [facility] RN Member Role: Primary Care Nurse Name: Julia Alex RN Position: [facility] RN Member Role: Primary Care Nurse Name: Brandi Martinez RN Position: [facility] RN Member Role: Primary Care Nurse Name: Joann Moore RN Position: [facility] RN Member Role: Primary Care Nurse Name: Ramya Cook RN Position: [facility] Patient Accounts Manager Member Role: Primary Care Nurse Care Team Related Persons Name: HARVEY CASAS Address: [address] [address]
--- OUTSIDE RECORDS SUMMARY | 2023-11-15 13:21 | XMS_ITS | Continuity of Care Document ---
Author Organization [facility] Address [address] [place] [address]- Care Team Providers Care Digital Print Operator Name Role Phone Annemarie Alfred MD Primary Care Physician Encounter [facility] Date(s): 08/03/22 - 09/02/22 [facility] [address] [place] [id number] Allergies, Adverse Reactions, Alerts Substance Reaction [...] 0 Refills, Maintenance, 05/14/22 16:10:00 EDT, Tablet, [facility], Partial fill upon patient request if the prescription is for a schedule II opioid drug., 156, cm, 05/14/22 15:10:00... Start Date: 05/14/22 Status: Ordered aspirin 81 mg oral delayed release tablet 81 mg, By Mouth, Daily, # 30 tablet, Refills 0, Tot. Refills 0, Maintenance, 05/14/22 16:09:00 EDT,Route to Pharmacy Electronically, [facility] 3, Partial fill upon patient request if the prescription is for a schedule II opioid drug., 15... Start Date: 05/14/22 Status: Ordered atorvastatin 80 mg oral tablet 1 tablet = 80 mg, By Mouth, Daily at bedtime, # 30 tablet, 0 Refills, Maintenance, 05/14/22 16:09:00 EDT, Tablet, [facility] 3, Partial fill upon patient request [...] 05/14/22 16:09:00 EDT, Route to Pharmacy Electronically, [facility] 3, Partial fill upon patient request [...] tablet, 0 Refills, Maintenance, 08/04/22 9:05:00 EST, [id number], 156, cm, 07/07/22 14:21:00 EST, Height, 116, kg, 05/04/22 19:13:00 EDT, Dry Weight Start Date: 08/04/22 Status: Ordered ferrous sulfate 325 mg oral enteric coated tablet 325 mg, By Mouth, Every Wednesday, Wednesday and Wednesday, # 30 tablet, Refills 0, Tot. Refills 0, Maintenance, 05/14/22 16:09:00 EDT, Route to Pharmacy Electronically, [facility] 3, Partial fill upon patient request [...] Start Date: 05/14/22 Status: Ordered nystatin topical [id number] u/gm powder See Instructions, APPLY TO AFFECTED AREA TWICE A DAY TO THE SKIN FOLDS NEEDED, # 30 Gm, 0 Refills, [facility], 15, APPLY TO AFFECTED AREA TWICE A DAY TO THE SKIN FOLDS NEEDED, 155, cm, 06/03/21 10:30:00 EST, Height, 111.36, kg, 04/07/21 11:... Start Date: 09/30/21 Status: Ordered omeprazole 20 mg oral delayed release tablet 1 tablet = 20 mg, By Mouth, Daily, # 30 tablet, 0 Refills, Maintenance, 04/17/22 18:01:00 EDT, CR Tablet, [facility]/pharmacy #[id number], Partial fill upon patient request if the prescription is for a schedule II opioid drug., 158, cm, 04/17/22 16:11:00 EDT, [facility]... Start Date: 04/17/22 Status: Ordered sulfamethoxazole-trimethoprim 800 mg-160 mg oral tablet 1 tablet, By Mouth, Every 12 hours, for 14 days, # 28 tablet, 3 Refills, Acute 10/08/22 10:49:00 EDT, 08/13/22 10:49:00 EST, Tablet, [facility]/pharmacy #[id number], Partial fill upon patient request [...] Team Personnel Name: Thomas Lomax RN Position: [facility] ED RN W/OE and Tasks Member Role: Primary Care Nurse Name: Mandy Hightower RN Position: [facility] RN Member Role: Primary Care Nurse Name: Akosua Moses RN Position: [facility] RN Member Role: Primary Care Nurse Name: Michelle Zambrano RN Position: [facility] RN Member Role: Primary Care Nurse Name: Stacie Ortiz RN Position: [facility] SN RN Member Role: Primary Care Nurse Name: Nicole Alvarado RN Position: [facility] RN Member Role: Primary Care Nurse Name: Pau Olmedo RN Position: [facility] RN Member Role: Primary Care Nurse Name: Rodrigo Noel RN Position: [facility] RN Member Role: Primary Care Nurse Name: Ximena Constantino RN Position: [facility] RN Member Role: Primary Care Nurse Name: Kylie Wilde RN Position: [facility] RN Member Role: Primary Care Nurse Name: Domenica Ramirez RN Position: [facility] RN Member Role: Primary Care Nurse Name: Klarissa Ko RN Position: [facility] RN Member Role: Primary Care Nurse Name: Alma Lott RN Position: [facility] RN Member Role: Primary Care Nurse Name: Annemarie Alfred MD Position: Reference Physician Member Role: PCP Address: Address: [address] [place] [address]- Name: Caroline Shirley RN Position: [facility] RN Member Role: Primary Care Nurse Name: Tanisha Perez RN Position: [facility] RN Member Role: Primary Care Nurse Name: Chelle Ricardo RN Position: [facility] RN Member Role: Primary Care Nurse Name: Kelsi Kim RN Position: [facility] RN Member Role: Primary Care Nurse Name: Mireya Catherine RN Position: [facility] RN Member Role: Primary Care Nurse Name: Josefina Leonard RN Position: [facility] RN Member Role: Primary Care Nurse Name: Prem Barrera MD Position: [facility] Renal MD Member Role: Lifetime Consulting Physician Address: Address: [address] [place] [address] [address] [facility] [address] Name: Leah Silva RN Position: [facility] RN Member Role: Primary Care Nurse Name: Lata Hernandez RN Position: [facility] [place] Member Role: Primary Care Nurse Name: Atul Molina MD Position: [facility] Renal MD Member Role: Lifetime Consulting Physician Address: Address: [address] [place] [address] [facility] [address] Name: Gema Jean Baptiste RN Position: [facility] RN Member Role: Primary Care Nurse Name: Esther Miller RN Position: [facility] RN Member Role: Primary Care Nurse Name: Siena Coleman RN Position: [facility] RN Member Role: Primary Care Nurse Name: Julia Alex RN Position: [facility] RN Member Role: Primary Care Nurse Name: Brandi Martinez RN Position: [facility] RN Member Role: Primary Care Nurse Name: Joann Moore RN Position: [facility] RN Member Role: Primary Care Nurse Name: Ramya Cook RN Position: [facility] [place] Member Role: Primary Care Nurse Care Team Related Persons Name: HARVEY CASAS Address: [address] [place] [address]
--- OUTSIDE RECORDS SUMMARY | 2023-11-15 13:21 | XMS_ITS | Continuity of Care Document ---
Author Organization [facility] Address [address] [place] [address]- Care Team Providers Care Medical Photographer Name Role Phone Annemarie Alfred MD Primary Care Physician Encounter [facility] Date(s): 06/16/22 - 07/16/22 [facility] [address] [place] [id number] Allergies, Adverse Reactions, Alerts Substance Reaction Severity Status morphine anaphylaxis Severe Active propofol anaphylaxis Active Tomatoes Active gabapentin tardive dyskenesia Active Immunizations Given [...] 0 Refills, Maintenance, 05/14/22 16:09:00 EDT, Tablet, [facility], [...] Route to Pharmacy Electronically, [facility] [...] 08/04/22 15:00:00 EST, 07/07/22 15:00:00 EST, Capsule, [facility]acy #[id number], Partial fill upon patient request if the prescription is for a schedule II opioid drug., 156,... Start Date: 07/07/22 Stop Date: 08/04/22 Status: Ordered ferrous sulfate 325 mg oral enteric coated tablet 325 mg, By Mouth, Every Wednesday, Wednesday and Wednesday, # 30 tablet, Refills 0, Tot. Refills 0, Maintenance, 05/14/22 16:09:00 EDT, Route to Pharmacy Electronically, [facility] [...] Start Date: 05/14/22 Status: Ordered nystatin topical 975260 u/gm powder See Instructions, APPLY TO AFFECTED AREA TWICE A DAY TO THE SKIN FOLDS NEEDED, # 30 Gm, 0 Refills, [facility], 15, APPLY TO AFFECTED AREA TWICE A [...] Team Personnel Name: Thomas Lomax RN Position: [facility] ED RN W/OE and Tasks Member Role: Primary Care Nurse Name: Mandy Hightower RN Position: [facility] RN Member Role: Primary Care Nurse Name: Akosua Moses RN Position: [facility] RN Member Role: Primary Care Nurse Name: Michelle Zambrano RN Position: [facility] RN Member Role: Primary Care Nurse Name: Stacie Ortiz RN Position: [facility] SN RN Member Role: Primary Care Nurse Name: Nicole Alvarado RN Position: [facility] RN Member Role: Primary Care Nurse Name: Pau Olmedo RN Position: [facility] RN Member Role: Primary Care Nurse Name: Rodrigo Noel RN Position: [facility] RN Member Role: Primary Care Nurse Name: Ximena Constantino RN Position: [facility] RN Member Role: Primary Care Nurse Name: Kylie Wilde RN Position: [facility] RN Member Role: Primary Care Nurse Name: Domenica Ramirez RN Position: [facility] RN Member Role: Primary Care Nurse Name: Klarissa Ko RN Position: [facility] RN Member Role: Primary Care Nurse Name: Alma Lott RN Position: [facility] RN Member Role: Primary Care Nurse Name: Annemarie Alfred MD Position: Reference Physician Member Role: PCP Address: Address: [address] [place] [address] Name: Caroline Shirley RN Position: [facility] RN Member Role: Primary Care Nurse Name: Tanisha Perez RN Position: [facility] RN Member Role: Primary Care Nurse Name: Chelle Ricardo RN Position: [facility] RN Member Role: Primary Care Nurse Name: Kelsi Kim RN Position: [facility] RN Member Role: Primary Care Nurse Name: Mireya Catherine RN Position: [facility] RN Member Role: Primary Care Nurse Name: Josefina Leonard RN Position: [facility] RN Member Role: Primary Care Nurse Name: Prem Barrera MD Position: [facility] Renal MD Member Role: Lifetime Consulting Physician Address: Address: [address] [place] [address] [address] [facility] [place] [address]- Name: Leah Silva RN Position: [facility] RN Member Role: Primary Care Nurse Name: Lata Hernandez RN Position: [facility] Resource Agent Member Role: Primary Care Nurse Name: Atul Molina MD Position: [facility] Renal MD Member Role: Lifetime Consulting Physician Address: Address: [address] [place] [address] [facility] [place] [address]- Name: Gema Jean Baptiste RN Position: [facility] RN Member Role: Primary Care Nurse Name: Esther Miller RN Position: [facility] RN Member Role: Primary Care Nurse Name: Siena Coleman RN Position: [facility] RN Member Role: Primary Care Nurse Name: Julia Alex RN Position: [facility] RN Member Role: Primary Care Nurse Name: Brandi Martinez RN Position: [facility] RN Member Role: Primary Care Nurse Name: Joann Moore RN Position: [facility] RN Member Role: Primary Care Nurse Name: Ramya Cook RN Position: [facility] Resource Agent Member Role: Primary Care Nurse Care Team Related Persons Name: HARVEY CASAS Address: [address] [place] [address]
--- OUTSIDE RECORDS SUMMARY | 2023-11-15 13:21 | XMS_ITS | Continuity of Care Document ---
Author Organization [facility] Infect[facility] Address [address] [place] [id number]- Care Team Providers Care Manufacturing Clerk Name Role Phone Annemarie Alfred MD Primary Care Physician Encounter [facility] Date(s): 06/05/22 - 07/05/22 [facility] [address] [place] [id number] Allergies, Adverse Reactions, Alerts Substance [...] 0 Refills, Maintenance, 05/14/22 16:10:00 EDT, Tablet, [facility], Partial fill upon patient request if the prescription is for a schedule II opioid drug., 156, cm, 05/14/22 15:10:00... Start Date: 05/14/22 Status: Ordered aspirin 81 mg oral delayed release tablet 81 mg, By Mouth, Daily, # 30 tablet, Refills 0, Tot. Refills 0, Maintenance, 05/14/22 16:09:00 EDT,Route to Pharmacy Electronically, [facility], Partial fill upon patient request if the prescription is for a schedule II opioid drug., 15... Start Date: 05/14/22 Status: Ordered atorvastatin 80 mg oral tablet 1 tablet = 80 mg, By Mouth, Daily at bedtime, # 30 tablet, 0 Refills, Maintenance, 05/14/22 16:09:00 EDT, Tablet, [facility], Partial fill upon patient request if [...] 16:09:00 EDT, [facility], Partial fill upon [...] 07/08/22 16:00:00 EST, 06/10/22 16:00:00 EST, Capsule, [facility] 3, Partial fill upon patient request if the prescription is for a schedule II opioid drug.... Start Date: 06/10/22 Stop Date: 07/08/22 Status: Ordered doxycycline hyclate 100 mg oral tablet 1 capsule, By Mouth, Every 12 hours, for 14 days, # 28 capsule, 0 Refills, Acute 07/07/22 9:46:00 EST, 06/23/22 9:46:00 EST, Capsule, [facility]/pharmacy #[id number], Partial fill upon patient request if the prescription is for a schedule II opioid drug., 156, cm,... Start Date: 06/23/22 Stop Date: 07/07/22 Status: Ordered ferrous sulfate 325 mg oral enteric coated tablet 325 mg, By Mouth, Every Wednesday, Wednesday and Wednesday, # 30 tablet, Refills 0, Tot. Refills 0, Maintenance, 05/14/22 16:09:00 EDT, Route to Pharmacy Electronically, [facility] 3, Partial fill upon patient request [...] Start Date: 05/14/22 Status: Ordered nystatin topical 764942 u/gm powder See Instructions, APPLY TO AFFECTED AREA TWICE A DAY TO THE SKIN FOLDS NEEDED, # 30 Gm, 0 Refills, [facility], 15, APPLY TO AFFECTED AREA TWICE A DAY TO THE SKIN FOLDS NEEDED, 155, cm, 06/03/21 10:30:00 EST, Height, 111.36, kg, 04/07/21 11:... Start Date: 09/30/21 Status: Ordered omeprazole 20 mg oral delayed release tablet 1 tablet = 20 mg, By Mouth, Daily, # 30 tablet, 0 Refills, Maintenance, 04/17/22 18:01:00 EDT, CR Tablet, [facility] #[id number], Partial fill upon patient request if the prescription is for a schedule II opioid drug., 158, cm, 04/17/22 16:11:00 EDT, [place]... Start Date: 04/17/22 Status: Ordered theophylline 400 [...] Care Nurse Name: Ximena Ignacio RN Position: [facility] RN Member Role: Primary Care Nurse Name: Klarissa Ko RN Position: [facility] RN Member Role: Primary Care Nurse Name: Alma Lott RN Position: [facility] RN Member Role: Primary Care Nurse Name: Annemarie Alfred MD Position: Reference Physician Member Role: PCP Address: Address: [address] [place] [id number]- [place] Name: Caroline Shirley RN Position: [facility] [...] Member Role: Lifetime Consulting Physician Address: Address: [address] [place] [address] [address] [facility] [place] [address]- Name: Leah Silva RN Position: [facility] RN Member Role: Primary Care Nurse Name: Lata Hernandez RN Position: [facility] Cement Handler Member Role: Primary Care Nurse Name: Atul Molina MD Position: [facility] Renal MD Member Role: Lifetime Consulting Physician Address: Address: [address] [place] [address] [facility] [place] [address]- Name: Gema Jean Baptiste RN Position: [facility] RN Member Role: Primary Care Nurse Name: Esther Miller RN Position: [facility] RN Member Role: Primary Care Nurse Name: Siena Coleman RN Position: [facility] RN Member Role: Primary Care Nurse Name: Julia Alex RN Position: [facility] RN Member Role: Primary Care Nurse Name: Brandi Martniez RN Position: [facility] RN Member Role: Primary Care Nurse Name: Joann Moore RN Position: [facility] RN Member Role: Primary Care Nurse Name: Ramya Cook RN Position: [facility] Cement Handler Member Role: Primary Care Nurse Care Team Related Persons Name: HARVEY CASAS Address: [address] [place] [address]
--- OUTSIDE RECORDS SUMMARY | 2023-11-15 13:21 | XMS_ITS | Continuity of Care Document ---
Author Organization [facility] Address [address] [place] [id number]- Care Team Providers Care Manager Club Name Role Phone Annemarie Alfred MD Primary Care Physician Encounter [facility] Date(s): 08/14/22 - 09/18/[address] [facility] [address] [place] [id number] Attending Physician: Evin Mckeon MD Admitting Physician: [...] 0 Refills, Maintenance, 05/14/22 16:10:00 EDT, Tablet, [facility], Partial fill upon patient request if the prescription is for a schedule II opioid drug., 156, cm, 05/14/22 15:10:00... Start Date: 05/14/22 Status: Ordered aspirin 81 mg oral delayed release tablet 81 mg, By Mouth, Daily, # 30 tablet, Refills 0, Tot. Refills 0, Maintenance, 05/14/22 16:09:00 EDT,Route to Pharmacy Electronically, [facility], Partial fill upon patient request if the prescription is for a schedule II opioid drug., 15... Start Date: 05/14/22 Status: Ordered atorvastatin 80 mg oral tablet 1 tablet = 80 mg, By Mouth, Daily at bedtime, # 30 tablet, 0 Refills, Maintenance, 05/14/22 16:09:00 EDT, Tablet, [facility], Partial fill upon [...] 05/14/22 16:09:00 EDT, Route to Pharmacy Electronically, [facility], Partial fill upon patient request [...] tablet, 0 Refills, Maintenance, 08/04/22 9:05:00 EST, [id number], 156, cm, 07/07/22 14:21:00 EST, Height, 116, kg, 05/04/22 19:13:00 EDT, Dry Weight Start Date: 08/04/22 Status: Ordered ferrous sulfate 325 mg oral enteric coated tablet 325 mg, By Mouth, Every Wednesday, Wednesday and Wednesday, # 30 tablet, Refills 0, Tot. Refills 0, Maintenance, 05/14/22 16:09:00 EDT, Route to Pharmacy Electronically, [facility], Partial fill upon patient request [...] Start Date: 05/14/22 Status: Ordered nystatin topical 840353 u/gm powder See Instructions, APPLY TO AFFECTED AREA TWICE A DAY TO THE SKIN FOLDS NEEDED, # 30 Gm, 0 Refills, [facility] 77[facility], 15, APPLY TO AFFECTED AREA TWICE A DAY TO THE SKIN FOLDS NEEDED, 155, cm, 06/03/21 10:30:00 EST, Height, 111.36, kg, 04/07/21 11:... Start Date: 09/30/21 Status: Ordered omeprazole 20 mg oral delayed release tablet 1 tablet = 20 mg, By Mouth, Daily, # 30 tablet, 0 Refills, Maintenance, 04/17/22 18:01:00 EDT, CR Tablet, [facility] #[id number], Partial fill upon patient request if the prescription is for a schedule II opioid drug., 158, cm, 04/17/22 16:11:00 EDT, [facility]... Start Date: 04/17/22 Status: Ordered sulfamethoxazole-trimethoprim 800 mg-160 mg oral tablet 1 tablet, By Mouth, Every 12 hours, for 14 days, # 28 tablet, 3 Refills, Acute 10/08/22 10:49:00 EDT, 08/13/22 10:49:00 EST, Tablet, [id number], Partial fill upon patient request [...] Team Personnel Name: Thomas Lomax RN Position: [facility] ED RN W/OE and Tasks Member Role: Primary Care Nurse Name: Mandy Hightower RN Position: [facility] RN Member Role: Primary Care Nurse Name: Akosua Moses RN Position: [facility] RN Member Role: Primary Care Nurse Name: Michelle Zambrano RN Position: [facility] RN Member Role: Primary Care Nurse Name: Stacie Ortiz RN Position: [facility] SN RN Member Role: Primary Care Nurse Name: Nicole Alvarado RN Position: [facility] RN Member Role: Primary Care Nurse Name: Pau Olmedo RN Position: [facility] RN Member Role: Primary Care Nurse Name: Rodrigo Noel RN Position: [facility] RN Member Role: Primary Care Nurse Name: Ximena Constantino RN Position: [facility] RN Member Role: Primary Care Nurse Name: Kylie Wilde RN Position: [facility] RN Member Role: Primary Care Nurse Name: Domenica Ramirez RN Position: [facility] RN Member Role: Primary Care Nurse Name: Klarissa Ko RN Position: [facility] RN Member Role: Primary Care Nurse Name: Alma Lott RN Position: [facility] RN Member Role: Primary Care Nurse Name: Annemarie Alfred MD Position: Reference Physician Member Role: PCP Address: Address: [address] [place] [id number] Name: Caroline Shirley RN Position: [facility] RN Member Role: Primary Care Nurse Name: Tanisha Perez RN Position: [facility] RN Member Role: Primary Care Nurse Name: Chelle Ricardo RN Position: [facility] RN Member Role: Primary Care Nurse Name: Kelsi Kim RN Position: [facility] RN Member Role: Primary Care Nurse Name: Mireya Catherine RN Position: [facility] RN Member Role: Primary Care Nurse Name: Josefina Leonard RN Position: [facility] RN Member Role: Primary Care Nurse Name: Prem Barrera MD Position: [facility] Renal MD Member Role: Lifetime Consulting Physician Address: Address: [address] [place] [address] [address] [facility] [place] [address]- Name: Lata Hernandez RN Position: [facility] Calender Tender Member Role: Primary Care Nurse Name: Atul Molina MD Position: [facility] Renal MD Member Role: Lifetime Consulting Physician Address: Address: [address] [place] [address] [facility] [place] [address]- Name: Gema Jean Baptiste RN Position: [facility] RN Member Role: Primary Care Nurse Name: Esther Miller RN Position: [facility] RN Member Role: Primary Care Nurse Name: Siena Coleman RN Position: [facility] RN Member Role: Primary Care Nurse Name: Julia Alex RN Position: [facility] RN Member Role: Primary Care Nurse Name: Brandi Martinez RN Position: [facility] RN Member Role: Primary Care Nurse Name: Joann Moore RN Position: [facility] RN Member Role: Primary Care Nurse Name: Ramya Cook RN Position: [facility] Calender Tender Member Role: Primary Care Nurse Care Team Related Persons Name: HARVEY CASAS Address: [address] [place] [address]
--- OUTSIDE RECORDS SUMMARY | 2023-11-15 13:21 | XMS_ITS | Continuity of Care Document ---
Author Organization [facility] Address [address] [place] [address]- Care Team Providers Care Telephone Order Clerk Room Service Name Role Phone Annemarie Alfred MD Primary Care Physician Encounter [facility] Date(s): 05/01/22 - 05/31/22 [facility] [address] [place], [place] [address] Attending Physician: Bethany Smith Admitting Physician: Bethany Smith Referring Physician: AdmBethany dailey Referring Physician: Akosua Dominguez Allergies, Adverse Reactions, [...] Refills, Maintenance, 05/14/22 16:10:00 EDT, Tablet, [facility], Partial fill upon patient request if the prescription is for a schedule II opioid drug., 156, cm, 05/14/22 15:10:00... Start Date: 05/14/22 Status: Ordered aspirin 81 mg oral delayed release tablet 81 mg, By Mouth, Daily, # 30 tablet, Refills 0, Tot. Refills 0, Maintenance, 05/14/22 16:09:00 EDT,Route to Pharmacy Electronically, [facility] 3, Partial fill upon patient request if the prescription is for a schedule II opioid drug., 15... Start Date: 05/14/22 Status: Ordered atorvastatin 80 mg oral tablet 1 tablet = 80 mg, By Mouth, Daily at bedtime, # 30 tablet, 0 Refills, Maintenance, 05/14/22 16:09:00 EDT, Tablet, [facility] 3, Partial fill upon patient [...] 05/14/22 16:09:00 EDT, Route to Pharmacy Electronically, [facility] 3, Partial fill upon patient request [...] 06/15/22 14:07:00 EST, 05/14/22 14:05:00 EDT, Tablet, [facility] 3, Partial fill upon patient request if the prescriptionis for a schedule II opioid drug., 156, cm, ... Start Date: 05/14/22 Stop Date: 06/15/22 Status: Ordered ferrous sulfate 325 mg oral enteric coated tablet 325 mg, By Mouth, Every Wednesday, Wednesday and Wednesday, # 30 tablet, Refills 0, Tot. Refills 0, Maintenance, 05/14/22 16:09:00 EDT, Route to Pharmacy Electronically, [facility] 3, Partial fill upon patient request [...] Start Date: 05/14/22 Status: Ordered nystatin topical [id number] u/gm powder See Instructions, APPLY TO AFFECTED AREA TWICE A DAY TO THE SKIN FOLDS NEEDED, # 30 Gm, 0 Refills, [facility] 86922, 15, APPLY TO AFFECTED AREA TWICE A [...] on: 05/22/21 Sex Patient Care team information Personnel Name: Tima ORDAZ , Annemarie Slater Address: Address: [address] [place] [id number]
--- OUTSIDE RECORDS SUMMARY | 2023-11-15 13:21 | XMS_ITS | Continuity of Care Document ---
Author Organization [facility] Address [address] [place] [address]- Care Team Providers Care Sole Rougher Name Role Phone Annemarie Alfred MD Primary Care Physician [place] [facility] [place]22 - 07/29/22 [facility] [address] [place] [id number] Allergies, Adverse Reactions, Alerts Substance Reaction [...] 0 Refills, Maintenance, 05/14/22 16:10:00 EDT, Tablet, [facility], Partial fill upon patient request if the prescription is for a schedule II opioid drug., 156, cm, 05/14/22 15:10:00... Start Date: 05/14/22 Status: Ordered aspirin 81 mg oral delayed release tablet 81 mg, By Mouth, Daily, # 30 tablet, Refills 0, Tot. Refills 0, Maintenance, 05/14/22 16:09:00 EDT,Route to Pharmacy Electronically, [facility], Partial fill upon patient request if the prescription is for a schedule II opioid drug., 15... Start Date: 05/14/22 Status: Ordered atorvastatin 80 mg oral tablet 1 tablet = 80 mg, By Mouth, Daily at bedtime, # 30 tablet, 0 Refills, Maintenance, 05/14/22 16:09:00 EDT, Tablet, [facility] 3, Partial fill upon patient request [...] 05/14/22 16:09:00 EDT, Route to Pharmacy Electronically, [facility], Partial fill upon patient request if [...] 08/04/22 15:00:00 EST, 07/07/22 15:00:00 EST, Capsule, [facility]/pharmacy #[id number], Partial fill upon patient request if the prescription is for a schedule II opioid drug., 156,... Start Date: 07/07/22 Stop Date: 08/04/22 Status: Ordered ferrous sulfate 325 mg oral enteric coated tablet 325 mg, By Mouth, Every Wednesday, Wednesday and Wednesday, # 30 tablet, Refills 0, Tot. Refills 0, Maintenance, 05/14/22 16:09:00 EDT, Route to Pharmacy Electronically, [facility], Partial fill upon patient request if [...] Start Date: 05/14/22 Status: Ordered nystatin topical 090273 u/gm powder See Instructions, APPLY TO AFFECTED AREA TWICE A DAY TO THE SKIN FOLDS NEEDED, # 30 Gm, 0 Refills, [facility] STORE 67590, 15, APPLY TO AFFECTED AREA TWICE A DAY TO THE SKIN FOLDS NEEDED, 155, cm, 06/03/21 10:30:00 EST, Height, 111.36, kg, 04/07/21 11:... Start Date: 09/30/21 Status: Ordered omeprazole 20 mg oral delayed release tablet 1 tablet = 20 mg, By Mouth, Daily, # 30 tablet, 0 Refills, Maintenance, 04/17/22 18:01:00 EDT, CR Tablet, [facility]/pharmacy #[id number], Partial fill upon patient request [...] Team Personnel Name: Thomas Lomax RN Position: [facility] ED RN W/OE and Tasks Member Role: Primary Care Nurse Name: Mandy Hightower RN Position: [facility] RN Member Role: Primary Care Nurse Name: Akosua Moses RN Position: [facility] RN Member Role: Primary Care Nurse Name: Michelle Zambrano RN Position: [facility] RN Member Role: Primary Care Nurse Name: Stacie Ortiz RN Position: [facility] SN RN Member Role: Primary Care Nurse Name: Nicole Alvarado RN Position: [facility] RN Member Role: Primary Care Nurse Name: Pau Olmedo RN Position: [facility] RN Member Role: Primary Care Nurse Name: Rodrigo Noel RN Position: [facility] RN Member Role: Primary Care Nurse Name: Ximena Constantino RN Position: [facility] RN Member Role: Primary Care Nurse Name: Kylie Wilde RN Position: [facility] RN Member Role: Primary Care Nurse Name: Domenica Ramirez RN Position: [facility] RN Member Role: Primary Care Nurse Name: Klarissa Ko RN Position: [facility] RN Member Role: Primary Care Nurse Name: Alma Lott RN Position: [facility] RN Member Role: Primary Care Nurse Name: Annemarie Alfred MD Position: Reference Physician Member Role: PCP Address: Address: [address] [place] [id number] Name: Caroline Shirley RN Position: [facility] RN Member Role: Primary Care Nurse Name: Tanisha Perez RN Position: [facility] RN Member Role: Primary Care Nurse Name: Chelle Ricardo RN Position: [facility] RN Member Role: Primary Care Nurse Name: Kelsi Kim RN Position: [facility] RN Member Role: Primary Care Nurse Name: Mireya Catherine RN Position: [facility] RN Member Role: Primary Care Nurse Name: Josefina Leonard RN Position: [facility] RN Member Role: Primary Care Nurse Name: Prem Barrera MD Position: [facility] Renal MD Member Role: Lifetime Consulting Physician Address: Address: [address] [facility] [address] [facility] [place] [address]- Name: Leah Silva RN Position: [facility] RN Member Role: Primary Care Nurse Name: Lata Hernandez RN Position: [facility] Administrator Member Role: Primary Care Nurse Name: Atul Molina MD Position: [facility] Renal MD Member Role: Lifetime Consulting Physician Address: Address: [address] [place] [address] [facility] [place] [address]- Name: Gema Jean Baptiste RN Position: [facility] RN Member Role: Primary Care Nurse Name: Esther Miller RN Position: [facility] RN Member Role: Primary Care Nurse Name: Siena Coleman RN Position: [facility] RN Member Role: Primary Care Nurse Name: Julia Alex RN Position: [facility] RN Member Role: Primary Care Nurse Name: Brandi Martinez RN Position: [facility] RN Member Role: Primary Care Nurse Name: Joann Moore RN Position: [facility] RN Member Role: Primary Care Nurse Name: Ramya Cook RN Position: [facility] Administrator Member Role: Primary Care Nurse Care Team Related Persons Name: HARVEY CASAS Address: home [address] [place] [address]
--- OUTSIDE RECORDS SUMMARY | 2023-11-15 13:21 | XMS_ITS | Continuity of Care Document ---
Author Organization [facility] Address [address] [place] [address]- Care Team Providers Care Electrician Substation Supervisor Name Role Phone Annemarie Alfred MD Primary Care Physician Encounter [facility] [place] Date(s): 05/07/22 - 06/27/22 [facility] [address] [place] [id number] Attending Physician: Chuck Johnson MD Admitting Physician: Chuck Johnson MD Referring Physician: Annemarie Alfred MD Allergies, [...] 0 Refills, Maintenance, 05/14/22 16:10:00 EDT, Tablet, [facility], Partial fill upon patient request if the prescription is for a schedule II opioid drug., 156, cm, 05/14/22 15:10:00... Start Date: 05/14/22 Status: Ordered aspirin 81 mg oral delayed release tablet 81 mg, By Mouth, Daily, # 30 tablet, Refills 0, Tot. Refills 0, Maintenance, 05/14/22 16:09:00 EDT,Route to Pharmacy Electronically, [facility], Partial fill upon patient request if the prescription is for a schedule II opioid drug., 15... Start Date: 05/14/22 Status: Ordered atorvastatin 80 mg oral tablet 1 tablet = 80 mg, By Mouth, Daily at bedtime, # 30 tablet, 0 Refills, Maintenance, 05/14/22 16:09:00 EDT, Tablet, [facility] 3, Partial fill upon patient request [...] 05/14/22 16:09:00 EDT, Route to Pharmacy Electronically, [facility] 3, Partial fill upon patient [...] 07/08/22 16:00:00 EST, 06/10/22 16:00:00 EST, Capsule, [facility], Partial fill upon patient request if the prescription is for a schedule II opioid drug.... Start Date: 06/10/22 Stop Date: 07/08/22 Status: Ordered doxycycline hyclate 100 mg oral tablet 1 capsule, By Mouth, Every 12 hours, for 14 days, # 28 capsule, 0 Refills, Acute 07/07/22 9:46:00 EST, 06/23/22 9:46:00 EST, [id number] Partial fill upon patient request if the prescription is for a schedule II opioid drug., 156, cm,... Start Date: 06/23/22 Stop Date: 07/07/22 Status: Ordered ferrous sulfate 325 mg oral enteric coated tablet 325 mg, By Mouth, Every Wednesday, Wednesday and Wednesday, # 30 tablet, Refills 0, Tot. Refills 0, Maintenance, 05/14/22 16:09:00 EDT, Route to Pharmacy Electronically, [facility], Partial fill upon [...] Start Date: 05/14/22 Status: Ordered nystatin topical [id number] u/gm powder See Instructions, APPLY TO AFFECTED AREA TWICE A DAY TO THE SKIN FOLDS NEEDED, # 30 Gm, 0 Refills, [facility] 7[facility], 15, APPLY TO AFFECTED AREA TWICE A DAY TO THE SKIN FOLDS NEEDED, 155, cm, 06/03/21 10:30:00 EST, Height, 111.36, kg, 04/07/21 11:... Start Date: 09/30/21 Status: Ordered omeprazole 20 mg oral delayed release tablet 1 tablet = 20 mg, By Mouth, Daily, # 30 tablet, 0 Refills, Maintenance, 04/17/22 18:01:00 EDT, CR Tablet, [facility]/pharmacy #[id number], Partial fill upon patient request if [...] Care Nurse Name: Ximena Ignacio RN Position: [facility] RN Member Role: Primary Care Nurse Name: Klarissa Ko RN Position: [facility] RN Member Role: Primary Care Nurse Name: Alma Lott RN Position: [facility] RN Member Role: Primary Care Nurse Name: Annemarie Alfred MD Position: Reference Physician Member Role: PCP Address: Address: [address] [place] [id number]- [place] Name: Caroline Shirley RN Position: [facility] [...] Role: Lifetime Consulting Physician Address: Address: [address] [place] [address] [address] [facility] [place] [address]- Name: Leah Silva RN Position: [facility] RN Member Role: Primary Care Nurse Name: Lata Hernandez RN Position: [facility] Strip Cutting Machine Operator Member Role: Primary Care Nurse Name: Atul Molina MD Position: [facility] Renal MD Member Role: Lifetime Consulting Physician Address: Address: [address] [place] [address] [facility] [place], [place] [address] Name: Gema Jean Baptiste RN Position: [facility] [...] Ramya Cook RN Position: [facility] Strip Cutting Machine Operator Member Role: Primary Care Nurse Care Team Related Persons Name: HARVEY CASAS Address: [address] [place] [address]
--- OUTSIDE RECORDS SUMMARY | 2023-11-15 13:21 | XMS_ITS | Continuity of Care Document ---
Author Organization [facility] Address [address] [place] [address] ve [address] [place] [address]- Care Team Providers Care Sorting Livestock Worker Name Role Phone Annemarie Alfred MD Primary Care Physician [place] [facility] [place] - 11/14/[address] [place], [place] [address] Allergies, Adverse Reactions, Alerts Substance Reaction [...] 0 Refills, Maintenance, 05/14/22 16:10:00 EDT, Tablet, [facility], Partial fill upon patient request if the prescription is for a schedule II opioid drug., 156, cm, 05/14/22 15:10:00... Start Date: 05/14/22 Status: Ordered aspirin 81 mg oral delayed release tablet 81 mg, By Mouth, Daily, # 30 tablet, Refills 0, Tot. Refills 0, Maintenance, 05/14/22 16:09:00 EDT,Route to Pharmacy Electronically, [facility] 3, Partial fill upon patient request if the prescription is for a schedule II opioid drug., 15... Start Date: 05/14/22 Status: Ordered atorvastatin 80 mg oral tablet 1 tablet = 80 mg, By Mouth, Daily at bedtime, # 30 tablet, 0 Refills, Maintenance, 05/14/22 16:09:00 EDT, Tablet, [facility] 3, Partial fill upon patient request [...] 05/14/22 16:09:00 EDT, Route to Pharmacy Electronically, [facility] 3, Partial fill upon patient request [...] tablet, 0 Refills, Maintenance, 08/04/22 9:05:00 EST, [facility] 75621, 156, cm, 07/07/22 14:21:00 EST, Height, 116, kg, 05/04/22 19:13:00 EDT, Dry Weight Start Date: 08/04/22 Status: Ordered ferrous sulfate 325 mg oral enteric coated tablet 325 mg, By Mouth, Every Wednesday, Wednesday and Wednesday, # 30 tablet, Refills 0, Tot. Refills 0, Maintenance, 05/14/22 16:09:00 EDT, Route to Pharmacy Electronically, [facility] 3, Partial fill upon patient request [...] Start Date: 05/14/22 Status: Ordered nystatin topical 440486 u/gm powder See Instructions, APPLY TO AFFECTED AREA TWICE A DAY TO THE SKIN FOLDS NEEDED, # 30 Gm, 0 Refills, [facility] ST[facility] 20540, 15, APPLY TO AFFECTED AREA TWICE A DAY TO THE SKIN FOLDS NEEDED, 155, cm, 06/03/21 10:30:00 EST, Height, 111.36, kg, 04/07/21 11:... Start Date: 09/30/21 Status: Ordered omeprazole 20 mg oral delayed release tablet 1 tablet = 20 mg, By Mouth, Daily, # 30 tablet, 0 Refills, Maintenance, 04/17/22 18:01:00 EDT, CR Tablet, [facility] #[id number], Partial fill upon patient request if the prescription is for a schedule II opioid drug., 158, cm, 04/17/22 16:11:00 EDT, [facility]... Start Date: 04/17/22 Status: Ordered sulfamethoxazole-trimethoprim 800 mg-160 mg oral tablet 1 tablet, By Mouth, Every 12 hours, for 90 days, # 180 tablet, 3 Refills, Acute 10/03/23 10:49:00 EDT, 10/08/22 10:49:00 EDT, Tablet, [facility]/pharmacy #[id number], Partial fill upon patient [...] Team Personnel Name: Thomas Lomax RN Position: [facility] ED RN W/OE and Tasks Member Role: Primary Care Nurse Name: Mandy Hightower RN Position: [facility] RN Member Role: Primary Care Nurse Name: Akosua Moses RN Position: [facility] RN Member Role: Primary Care Nurse Name: Michelle Zambrano RN Position: [facility] RN Member Role: Primary Care Nurse Name: Stacie Ortiz RN Position: [facility] RN Member Role: Primary Care Nurse Name: Nicole Alvarado RN Position: [facility] RN Member Role: Primary Care Nurse Name: Pau Olmedo RN Position: [facility] RN Member Role: Primary Care Nurse Name: Rodrigo Noel RN Position: [facility] RN Member Role: Primary Care Nurse Name: Ximena Constantino RN Position: [facility] RN Member Role: Primary Care Nurse Name: Kylie Wilde RN Position: [facility] RN Member Role: Primary Care Nurse Name: Domenica Ramirez RN Position: [facility] RN Member Role: Primary Care Nurse Name: Klarissa Ko RN Position: [facility] RN Member Role: Primary Care Nurse Name: Alma Lott RN Position: [facility] RN Member Role: Primary Care Nurse Name: Annemarie Alfred MD Position: Reference Physician Member Role: PCP Address: Address: [address] [place] [id number]- [place] Name: Caroline Shirley RN Position: [facility] RN Member Role: Primary Care Nurse Name: Tanisha Perez RN Position: [facility] RN Member Role: Primary Care Nurse Name: Chelle Ricardo RN Position: [facility] RN Member Role: Primary Care Nurse Name: Kelsi Kim RN Position: [facility] RN Member Role: Primary Care Nurse Name: Mireya Catherine RN Position: [facility] RN Member Role: Primary Care Nurse Name: Josefina Leonard RN Position: [facility] RN Member Role: Primary Care Nurse Name: Prem Barrera MD Position: [facility] Renal MD Member Role: Lifetime Consulting Physician Address: Address: [address] [place] [address] [address] [facility] [place] [address]- Name: Lata Hernandez RN Position: [facility] Steel Handler Member Role: Primary Care Nurse Name: Atul Molina MD Position: [facility] Renal MD Member Role: Lifetime Consulting Physician Address: Address: [address] [place] [address] [facility] [address] Name: Gema Jean Baptiste RN Position: [facility] RN Member Role: Primary Care Nurse Name: Esther Miller RN Position: [facility] RN Member Role: Primary Care Nurse Name: Siena Coleman RN Position: [facility] RN Member Role: Primary Care Nurse Name: Julia Alex RN Position: [facility] RN Member Role: Primary Care Nurse Name: Brandi Martinez RN Position: [facility] RN Member Role: Primary Care Nurse Name: Joann Moore RN Position: [facility] RN Member Role: Primary Care Nurse Name: Ramya Cook RN Position: [facility] Steel Handler Member Role: Primary Care Nurse Care Team Related Persons Name: HARVEY CASAS Address: [address] [place] [address]
--- OUTSIDE RECORDS SUMMARY | 2023-11-15 13:21 | XMS_ITS | Continuity of Care Document ---
Author Organization [facility] Address [address] [place] [address]- Care Team Providers Care Database Management Specialist Name Role Phone Annemarie Alfred MD Primary Care Physician [phone] [place] [facility] [place] 10/01/22 - 10/31/22 [facility] [address] [place] [id number] Allergies, Adverse Reactions, Alerts Substance Reaction [...] 0 Refills, Maintenance, 05/14/22 16:10:00 EDT, Tablet, [facility], Partial fill upon patient request if the prescription is for a schedule II opioid drug., 156, cm, 05/14/22 15:10:00... Start Date: 05/14/22 Status: Ordered aspirin 81 mg oral delayed release tablet 81 mg, By Mouth, Daily, # 30 tablet, Refills 0, Tot. Refills 0, Maintenance, 05/14/22 16:09:00 EDT,Route to Pharmacy Electronically, [facility], Partial fill upon patient request if the prescription is for a schedule II opioid drug., 15... Start Date: 05/14/22 Status: Ordered atorvastatin 80 mg oral tablet 1 tablet = 80 mg, By Mouth, Daily at bedtime, # 30 tablet, 0 Refills, Maintenance, 05/14/22 16:09:00 EDT, Tablet, [facility], Partial fill upon [...] 05/14/22 16:09:00 EDT, Route to Pharmacy Electronically, [facility], Partial fill upon [...] tablet, 0 Refills, Maintenance, 08/04/22 9:05:00 EST, [facility], 156, cm, 07/07/22 14:21:00 EST, Height, 116, kg, 05/04/22 19:13:00 EDT, Dry Weight Start Date: 08/04/22 Status: Ordered ferrous sulfate 325 mg oral enteric coated tablet 325 mg, By Mouth, Every Wednesday, Wednesday and Wednesday, # 30 tablet, Refills 0, Tot. Refills 0, Maintenance, 05/14/22 16:09:00 EDT, Route to Pharmacy Electronically, [facility], Partial fill upon [...] Start Date: 05/14/22 Status: Ordered nystatin topical 476396 u/gm powder See Instructions, APPLY TO AFFECTED AREA TWICE A DAY TO THE SKIN FOLDS NEEDED, # 30 Gm, 0 Refills, [facility], 15, APPLY TO AFFECTED AREA TWICE A DAY TO THE SKIN FOLDS NEEDED, 155, cm, 06/03/21 10:30:00 EST, Height, 111.36, kg, 04/07/21 11:... Start Date: 09/30/21 Status: Ordered omeprazole 20 mg oral delayed release tablet 1 tablet = 20 mg, By Mouth, Daily, # 30 tablet, 0 Refills, Maintenance, 04/17/22 18:01:00 EDT, CR Tablet, [facility]/pharmacy #[id number], Partial fill upon patient request if the prescription is for a schedule II opioid drug., 158, cm, 04/17/22 16:11:00 EDT, [facility]... Start Date: 04/17/22 Status: Ordered sulfamethoxazole-trimethoprim 800 mg-160 mg oral tablet 1 tablet, By Mouth, Every 12 hours, for 90 days, # 180 tablet, 3 Refills, Acute 10/03/23 10:49:00 EDT, 10/08/22 10:49:00 EDT, Tablet, [facility]/pharmacy #[id number], Partial fill upon patient request if [...] Team Personnel Name: Thomas Lomax RN Position: [facility] ED RN W/OE and Tasks Member Role: Primary Care Nurse Name: Mandy Hightower RN Position: [facility] RN Member Role: Primary Care Nurse Name: Akosua Moses RN Position: [facility] RN Member Role: Primary Care Nurse Name: Michelle Zambrano RN Position: [facility] RN Member Role: Primary Care Nurse Name: Stacie Ortiz RN Position: [facility] SN RN Member Role: Primary Care Nurse Name: Nicole Alvarado RN Position: [facility] RN Member Role: Primary Care Nurse Name: Pau Olmedo RN Position: [facility] RN Member Role: Primary Care Nurse Name: Rodrigo Noel RN Position: [facility] RN Member Role: Primary Care Nurse Name: Ximena Constantino RN Position: [facility] RN Member Role: Primary Care Nurse Name: Kylie Wilde RN Position: [facility] RN Member Role: Primary Care Nurse Name: Domenica Ramirez RN Position: [facility] RN Member Role: Primary Care Nurse Name: Klarissa Ko RN Position: [facility] RN Member Role: Primary Care Nurse Name: Alma Lott RN Position: [facility] RN Member Role: Primary Care Nurse Name: Annemarie Alfred MD Position: Reference Physician Member Role: PCP Address: Address: [address] [place] [id number]- Name: Caroline Shirley RN Position: [facility] RN Member Role: Primary Care Nurse Name: Tanisha Perez RN Position: [facility] RN Member Role: Primary Care Nurse Name: Chelle Ricardo RN Position: [facility] RN Member Role: Primary Care Nurse Name: Kelsi Kim RN Position: [facility] RN Member Role: Primary Care Nurse Name: Mireya Catherine RN Position: [facility] RN Member Role: Primary Care Nurse Name: Josefina Leonard RN Position: [facility] RN Member Role: Primary Care Nurse Name: Prem Barrera MD Position: [facility] Renal MD Member Role: Lifetime Consulting Physician Address: Address: [address] [place] [address] [address] [facility] [place] [address]- Name: Lata Hernandez RN Position: [facility] Plug Grower Member Role: Primary Care Nurse Name: Atul Molina MD Position: [facility] Renal MD Member Role: Lifetime Consulting Physician Address: Address: [address] [place] [address] [facility] [place] [address]- Name: Gema Jean Baptiste RN Position: [facility] RN Member Role: Primary Care Nurse Name: Esther Miller RN Position: [facility] RN Member Role: Primary Care Nurse Name: Siena Coleman RN Position: [facility] RN Member Role: Primary Care Nurse Name: Julia Alex RN Position: [facility] RN Member Role: Primary Care Nurse Name: Brandi Martinez RN Position: [facility] RN Member Role: Primary Care Nurse Name: Joann Moore RN Position: [facility] RN Member Role: Primary Care Nurse Name: Ramya Cook RN Position: [facility] Plug Grower Member Role: Primary Care Nurse Care Team Related Persons Name: HARVEY CASAS Address: [address] [place] [address]
--- OUTSIDE RECORDS SUMMARY | 2023-11-15 13:21 | XMS_ITS | Continuity of Care Document ---
Author Organization [facility] Address [address] [place] [address]- Care Team Providers Care Beamer Hand Name Role Phone Annemarie Alfred MD Primary Care Physician Encounter [facility] [place](s): 09/23/23 - 10/23/23 [facility] [address] [place] [id number] Allergies, Adverse Reactions, Alerts Substance [...] 0 Refills, Maintenance, 05/14/22 16:10:00 EDT, Tablet, [facility], Partial fill upon patient request if the prescription is for a schedule II opioid drug., 156, cm, 05/14/22 15:10:00... Start Date: 05/14/22 Status: Ordered aspirin 81 mg oral delayed release tablet 81 mg, By Mouth, Daily, # 30 tablet, Refills 0, Tot. Refills 0, Maintenance, 05/14/22 16:09:00 EDT,Route to Pharmacy Electronically, [facility], Partial fill upon patient request if the prescription is for a schedule II opioid drug., 15... Start Date: 05/14/22 Status: Ordered atorvastatin 80 mg oral tablet 1 tablet = 80 mg, By Mouth, Daily at bedtime, # 30 tablet, 0 Refills, Maintenance, 05/14/22 16:09:00 EDT, Tablet, [facility], Partial fill upon patient [...] 16:09:00 EDT, Route to Pharmacy Electronically, [facility], Partial fill upon patient [...] 16:09:00 EDT, Route to Pharmacy Electronically, [facility], Partial fill upon patient request if [...] 0 Refills, Soft Stop, 09/01/23 15:31:00 EST, [facility]/pharmacy #[id number], Partial fill upon patient... Start Date: 09/01/23 Status: Ordered nitroglycerin 0.4 mg sublingual tablet 1 tablet = 0.4 mg, Sublingual, Every 5 minutes, PRN Chest Pain, 0 Refills, Maintenance, 05/14/22 7:11:00 EDT, Tablet, Partial fill upon patient request if the prescription is for a schedule II opioiddrug. Start Date: 05/14/22 Status: Ordered nystatin topical 223207 u/gm powder See Instructions, APPLY TO AFFECTED AREA TWICE A DAY TO THE SKIN FOLDS NEEDED, # 30 Gm, 0 Refills, [facility], 15, APPLY TO AFFECTED AREA TWICE A DAY TO THE SKIN FOLDS NEEDED, 155, cm, 06/03/21 10:30:00 EST, Height, 111.36, kg, 04/07/21 11:... Start Date: 09/30/21 Status: Ordered omeprazole 20 mg oral delayed release tablet 1 tablet = 20 mg, By Mouth, Daily, # 30 tablet, 0 Refills, Maintenance, 04/17/22 18:01:00 EDT, CR Tablet, [facility]/pharmacy #[id number], Partial fill upon patient [...] Team Personnel Name: Thomas Lomax RN Position: [facility] ED RN W/OE and Tasks Member Role: Primary Care Nurse Name: Mandy Hightower RN Position: [facility] RN Member Role: Primary Care Nurse Name: Akosua Moses RN Position: [facility] RN Member Role: Primary Care Nurse Name: Michelle Zambrano RN Position: [facility] RN Member Role: Primary Care Nurse Name: Stacie Ortiz RN Position: [facility] SN RN Member Role: Primary Care Nurse Name: Nicole Alvarado RN Position: [facility] RN Member Role: Primary Care Nurse Name: Pau Olmedo RN Position: [facility] RN Member Role: Primary Care Nurse Name: Rodrigo Noel RN Position: [facility] RN Member Role: Primary Care Nurse Name: Ximena Constantino RN Position: [facility] SN RN Member Role: Primary Care Nurse Name: Kylie Wilde RN Position: [facility] RN Member Role: Primary Care Nurse Name: Domenica Ramirez RN Position: [facility] RN Member Role: Primary Care Nurse Name: Klarissa Ko RN Position: [facility] RN Member Role: Primary Care Nurse Name: Alma Lott RN Position: [facility] SN RN Member Role: Primary Care Nurse Name: Annemarie Alfred MD Position: Reference Physician Member Role: PCP Address: Address: [address] [place] [id number] Name: Caroline Shirley RN Position: [facility] RN Member Role: Primary Care Nurse Name: Chelle Ricardo RN Position: [facility] RN Member Role: Primary Care Nurse Name: Kelsi Kim RN Position: [facility] RN Member Role: Primary Care Nurse Name: Mireya Catherine RN Position: [facility] RN Member Role: Primary Care Nurse Name: Lizet Hilliard RN Position: [facility] RN Member Role: Primary Care Nurse Name: Josefina Leonard RN Position: [facility] RN Member Role: Primary Care Nurse Name: Prem Barrera MD Position: [facility] Renal MD Member Role: Lifetime Consulting Physician Address: Address: [address] [place] [address] [address] [facility], [place] [address]- Name: Alma Reyes RN Position: [facility] RN Member Role: Primary Care Nurse Name: Lata Hernandez RN Position: [facility] [place] Machine Operator Member Role: Primary Care Nurse Name: Atul Molina MD Position: [facility] Renal MD Member Role: Lifetime Consulting Physician Address: Address: [address] [place] [address] [facility] [place] [address]- Name: Gema Jean Baptiste RN Position: [facility] RN Member Role: Primary Care Nurse Name: Esther Miller RN Position: [facility] RN Member Role: Primary Care Nurse Name: Siena Coleman RN Position: [facility] RN Member Role: Primary Care Nurse Name: Julia Alex RN Position: [facility] RN Member Role: Primary Care Nurse Name: Brandi Martinez RN Position: [facility] RN Member Role: Primary Care Nurse Name: Joann Moore RN Position: [facility] RN Member Role: Primary Care Nurse Name: Ramya Cook RN Position: [facility] Machine Operator Member Role: Primary Care Nurse Care Team Related Persons Name: HARVEY CASAS Address: [address] [place] [address]
== END 2023-11-15 14:29 | disposition home or self-care (01) ==
PROVIDERS: Visit Provider Internal Medicine
DX: N39.0 Urinary tract infection, site not specified (principal)
CPT/HCPCS: 99213

== ENCOUNTER 2024-02-07 15:13 | Emergency (ER) | payer MEDICARE, MEDICAID, SELFPAY ==
--- NOTE | ~2024-02-07 | XR_ITS ---
EXAMINATION: XR FEMUR, RIGHT CLINICAL INFORMATION: Wound lateral thigh, exposed bone. COMPARISON: 01/21/2021. TECHNIQUE: AP and lateral views of the right femur were obtained. FINDINGS: Lateral fixation plate with multiple traversing screws across the right femur. Long intramedullary nail across the right femur. Compared to 2020, new fracture of the superiormost horizontally oriented screw with respect to the lateral fixation plate. Quite complex appearance of a chronic, significantly comminuted distal femoral fracture. Compared to 2020, new osseous lucency measuring 5.3 x 1.3 cm abutting the lateral surface of the distal intramedullary agustín. Redemonstration of extensive calcific densities in the soft tissues of the lateral distal thigh, possibly sequela of myositis ossificans/postoperative changes. Scattered vascular calcifications. XR/XR femur RT 2V IMPRESSION: 1. Compared to 2020, new fracture of the superiormost horizontally oriented screw with respect to the lateral fixation plate. 2. Compared to 2020, new osseous lucency measuring 5.3 x 1.3 cm abutting the lateral surface of the distal intramedullary agustín, concerning for hardware failure and possible osteomyelitis in the appropriate clinical setting. 3. Chronic, significantly comminuted distal femoral fracture.
[2024-02-07 15:21] VITALS: BP 109/35; BP 122/76; PULSE 62; PULSE 76; RESP 16; TEMP 36.8; O2SAT 92; O2SAT 93; BMI 52.1
--- OUTSIDE RECORDS SUMMARY | 2024-02-07 15:44 | XMS_ITS | Continuity of Care Document ---
Author Organization [facility] ter Address [address] [place] [id number]- Care Team Providers Care Coordinator Of Online Programs Name Role Phone Lyndsey ORDAZ, Gal Primary Care Physician Encounter [facility] Date(s): 10/04/20 - 11/07/[address] [address] Discharge Disposition: A-Transfer SNF Attending Physician: Rakan ORDAZ, Evin Amaral Admitting Physician: Joao Elliott MD Referring Physician: Not on Staff, Referring MD Allergies, Adverse Reactions, Alerts Substance Reaction Severity Status morphine Active Medications acetaminophen 325 mg oral tablet 650 mg, 2, tablet, By Mouth, Every 4 hours, Refills 0, Maintenance, 10/18/20 12:00:00 EDT, Partial fill upon patient request if the prescription is for a schedule II opioid drug. Start Date: 10/18/20 Status: Ordered bisacodyl 10 mg rectal suppository 1 supp = 10 mg, Rectally, 2 times a day, PRN Constipation, 0 Refills, Maintenance, 10/18/20 12:00:00 EDT, Suppository, Partial fill upon patient request if the prescription is for a schedule II opioid drug. Start Date: 10/18/20 Status: Ordered clonazePAM 0.5 mg oral tablet 1 tablet = 0.5 mg, By Mouth, 2 times a day, PRN Anxiety, # 10 tablet, 0 Refills, Maintenance, 11/07/20 12:58:00 EDT, Tablet, Partial fill upon patient request if the prescription is for a schedule IIopioid drug. Start Date: 11/07/20 Stop Date: 11/12/20 Status: Ordered docusate sodium 150 mg/15 ml oral liquid 10 mL = 100 mg, By Mouth, 2 times a day, PRN Constipation, 0 Refills, Maintenance, 10/18/20 12:00:00 EDT, Liquid, Partial fill upon patient request if the prescription is for a schedule II opioid drug. Start Date: 10/18/20 Status: Ordered Duoneb Inhalation Solution 1, vials, BAND Nebulizer, 4 times a day, Refills 0, Maintenance, 10/18/20 12:00:00 EDT, Inhalation Solution Start Date: 10/18/20 Status: Ordered Enoxaparin 0.65 mL = 65 mg, Subcutaneous Injection, 2 times a day, 0 Refills, Maintenance, 11/07/20 13:09:00 EDT, Injection, Partial fill upon patient request if the prescription is for a schedule II opioid drug. Start Date: 11/07/20 Status: Ordered fluticasone-vilanterol Inhalation, Daily, 0 Refills, Maintenance, 11/07/20 13:03:00 EDT, Inhaler, Partial fill upon patient request if the prescription is for a schedule II opioid drug. Start Date: 11/07/20 Status: Ordered furosemide 40 mg oral tablet 40 mg, 1, tablet, By Mouth, Daily, Refills 0, Maintenance, 11/07/20 13:03:00 EDT, Partial fill uponpatient request if the prescription is for a schedule II opioid drug. Start Date: 11/07/20 Status: Ordered gabapentin 300 mg oral capsule 600 mg, Capsule, By Mouth, 11/07/20 15:00:00 EDT Start Date: 11/07/20 Stop Date: 11/07/20 Status: Completed gabapentin 600 mg oral tablet 1 tablet = 600 mg, By Mouth, 3 times a day, # 21 tablet, 0 Refills, Maintenance, 11/07/20 13:00:00 EDT, Tablet, Partial fill upon patient request if the prescription is for a schedule II opioid drug. Start Date: 11/07/20 Stop Date: 11/14/20 Status: Ordered ibuprofen 600 mg oral tablet 600 mg, 1, tablet, By Mouth, 3 times a day, PRN, Refills 0, Maintenance, Pain , Mild, 11/07/20 13:02:00 EDT, Partial fill upon patient request if the prescription is for a schedule II opioid drug. Start Date: 11/07/20 Status: Ordered MiraLax Powder 1 pack/packet = 17 Gm, By Mouth, Daily, PRN Constipation, 0 Refills, Maintenance, 11/07/20 13:02:00EDT, Powder, Partial fill upon patient request if the prescription is for a schedule II opioid drug. Start Date: 11/07/20 Status: Ordered Multivit Therapeutic/Minerals Tablet 1 tablet, By Mouth, Daily, 0 Refills, Maintenance, 10/18/20 12:01:00 EDT, Tablet, Partial fill uponpatient request if the prescription is for a schedule II opioid drug. Start Date: 10/18/20 Status: Ordered oxyCODONE 10 mg oral tablet 1 tablet = 10 mg, By Mouth, Every 3 hours, PRN as needed for pain, for 7 days, # 56 tablet, 0 Refills, Acute 11/14/20 13:00:00 EDT, 11/07/20 13:00:00 EDT, Tablet, Partial fill upon patient request ifthe prescription is for a schedule II opioid drug. Start Date: 11/07/20 Stop Date: 11/14/20 Status: Ordered oxyCODONE 5 mg oral tablet 10 mg, Tablet, By Mouth, Hold for: sedation, resp distress, altered mental status, 11/07/20 15:00:00 EDT Start Date: 11/07/20 Stop Date: 11/07/20 Status: Completed oxyCODONE 5 mg oral tablet 10 mg, Tablet, By Mouth, Hold for: sedation, resp distress, altered mental status, 11/07/20 18:00:00 EDT Start Date: 11/07/20 Stop Date: 11/07/20 Status: Completed pantoprazole 40 mg oral delayed release tablet = 40 mg, By Mouth, Daily, 0 Refills, Maintenance, 10/18/20 12:01:00 EDT, EC Tablet Start Date: 10/18/20 Status: Ordered rifampin 300 mg oral capsule 1 capsule = 300 mg, By Mouth, 2 times a day, # 30 capsule, 0 Refills, Acute 12/05/20 22:00:00 EDT, 11/07/20 13:13:00 EDT, Capsule, Partial fill upon patient request if the prescription is for a schedule II opioid drug. Start Date: 11/07/20 Stop Date: 12/05/20 Status: Ordered Santyl Topical Oint 1 applicator, Topically, Daily, 0 Refills, Maintenance, Ointment Start Date: 11/07/20 Status: Ordered Senna 8.6 mg oral tablet 17.2 mg, 2, tablet, By Mouth, Daily, Refills 0, Maintenance, 11/07/20 13:02:00 EDT, Tablet, Partialfill upon patient request if the prescription is for a schedule II opioid drug. Start Date: 11/07/20 Status: Ordered Silvadene 50 Gm Topical 1 applicator = 50 Gm, Topically, Daily, 0 Refills, Maintenance, Cream Start Date: 11/07/20 Status: Ordered temazepam 15 mg oral capsule 1 capsule = 15 mg, By Mouth, Daily at bedtime, PRN for sleep, # 5 capsule, 0 Refills, Maintenance, 11/07/20 12:59:00 EDT, Capsule, Partial fill upon patient request if the prescription is for a schedule II opioid drug. Start Date: 11/07/20 Stop Date: 11/12/20 Status: Ordered theophylline 400 mg/24 hours oral tablet, extended release = 400 mg, By Mouth, Every 24 hours, 0 Refills, Maintenance, 10/18/20 12:02:00 EDT, CR Tablet, Partial fill upon patient request if the prescription is for a schedule II opioid drug. Start Date: 10/18/20 Status: Ordered thiamine 100 mg oral tablet 100 mg, 1, tablet, By Mouth, Daily, Refills 0, Maintenance, 10/18/20 12:02:00 EDT, Partial fill upon patient request if the prescription is for a schedule II opioid drug. Start Date: 10/18/20 Status: Ordered Unasyn 2 g-1 g injection = 3 Gm, IV Infusion, Every 6 hours, # 30 each, 0 Refills, Acute 12/05/20 22:00:00 EDT, 11/07/20 13:12:00 EDT, Partial fill upon patient request if the prescription is for a schedule II opioid drug. Start Date: 11/07/20 Stop Date: 12/05/20 Status: Ordered Procedures Procedure Date Related Diagnosis Body Site Status Negative pressure wound ther apy (eg, vacuum assisted drainage collection), utilizing durable medical equipment (DME), including topical application(s), wound assessment, and instruction(s) for ongoing care, per session; total wound(s) surface area greater 1 10/25/20 Completed 1wound to left lateral leg, knee and medial leg after excisional debridement of approx 40cm3 skin and soft tissue closure of portion of wounds totalling 25cm - simple Results Orders for Microbiology Reports Name Date Tissue Culture w/ Gram Smear (TISSUE/BIO PSY CULT.) 10/23/20 Tissue Culture w/ Gram Smear (TISSUE/BIO PSY CULT.) 10/23/20 Anaerobic Culture (Culture Anaerobic) Anaerobic Culture (Culture Anaerobic) Microbiology Reports TEST:Anaerobic Culture STATUS:Auth (Verified) BODY SITE: SOURCE:TISSUE1 COLLECTED DATE/TIME:10/23/20 9:14 AM Anaerobic Culture SPECIMEN DESCRIPTION : TISSUE LEG RT SPECIAL REQUESTS : NONE CULTURE : NO ANAEROBES ISOLATED REPORT STATUS : FINAL 10/25/2020 TEST:Tissue/Biopsy Culture STATUS:Auth (Verified) BODY SITE: SOURCE:TISSUE1 COLLECTED DATE/TIME:10/23/20 9:14 AM Tissue/Biopsy Culture SPECIMEN DESCRIPTION : TISSUE RT LEG SPECIAL REQUESTS : NONE GRAM STAIN : 3+ POLYMORPHONUCLEAR LEUKOCYTES NO ORGANISMS SEEN CULTURE : 1+ STAPHYLOCOCCUS AUREUS. 1+ ENTEROCOCCUS FAECALIS CRITICAL VALUE CALLED AND VERIFIED BY READBACK FOR: TISSUE CULTURE REPORT TO EN [id number], S2 ON 10/24/20 AT 12: 45 BY XYZE REPORT STATUS : FINAL 10/25/2020 ORGANISM 1+ STAPHYLOCOCCUS AUREUS. METHOD MIN. INHIB. CONC. (MCG/ML) CIPROFLOXACIN SUSCEPTIBLE CLINDAMYCIN RESISTANT ERYTHROMYCIN RESISTANT INDUCIBLE CLINDAMYCI POSITIVE LEVOFLOXACIN SUSCEPTIBLE OXACILLIN SUSCEPTIBLE PENICILLIN RESISTANT RIFAMPIN SUSCEPTIBLE RIFAMPIN RIFAMPIN SHOULD NOT BE USED ALONE FOR ANTIMICROBIAL RIFAMPIN THERAPY. TETRACYCLINE RESISTANT TRIMETH/SULFAMETHOX SUSCEPTIBLE VANCOMYCIN SUSCEPTIBLE ORGANISM 1+ ENTEROCOCCUS FAECALIS METHOD MIN. INHIB. CONC. (MCG/ML) AMPICILLIN SUSCEPTIBLE VANCOMYCIN SUSCEPTIBLE GENTAMICIN SYNERGY NOT ACTIVE IN SYNERGY STREPTOMYCIN SYNERGY NOT ACTIVE IN SYNERGY TEST:Tissue/Biopsy Culture STATUS:Auth (Verified) BODY SITE: SOURCE:TISSUE1 COLLECTED DATE/TIME:10/23/20 9:14 AM Tissue/Biopsy Culture SPECIMEN DESCRIPTION : TISSUE RT LEG SPECIAL REQUESTS : NONE GRAM STAIN : 3+ POLYMORPHONUCLEAR LEUKOCYTES NO ORGANISMS SEEN CULTURE : 1+ STAPHYLOCOCCUS AUREUS. 1+ ENTEROCOCCUS FAECALIS CRITICAL VALUE CALLED AND VERIFIED BY READBACK FOR: TISSUE CULTURE REPORT TO EN [id number], S2 ON 10/24/20 AT 12:45 BY XYZE REPORT STATUS : FINAL 10/25/2020 ORGANISM 1+ STAPHYLOCOCCUS AUREUS. METHOD MIN. INHIB. CONC. (MCG/ML) CIPROFLOXACIN SUSCEPTIBLE CLINDAMYCIN RESISTANT ERYTHROMYCIN RESISTANT INDUCIBLE CLINDAMYCI POSITIVE LEVOFLOXACIN SUSCEPTIBLE OXACILLIN SUSCEPTIBLE PENICILLIN RESISTANT RIFAMPIN SUSCEPTIBLE RIFAMPIN RIFAMPIN SHOULD NOT BE USED ALONE FOR ANTIMICROBIAL RIFAMPIN THERAPY. TETRACYCLINE RESISTANT TRIMETH/SULFAMETHOX SUSCEPTIBLE VANCOMYCIN SUSCEPTIBLE ORGANISM 1+ ENTEROCOCCUS FAECALIS METHOD MIN. INHIB. CONC. (MCG/ML) AMPICILLIN SUSCEPTIBLE VANCOMYCIN SUSCEPTIBLE GENTAMICIN SYNERGY NOT ACTIVE IN SYNERGY STREPTOMYCIN SYNERGY NOT ACTIVE IN SYNERGY TEST:Anaerobic Culture STATUS:Auth (Verified) BODY SITE: SOURCE:TISSUE1 COLLECTED DATE/TIME:10/23/20 9:12 AM Anaerobic Culture SPECIMEN DESCRIPTION : TISSUE LEG RT SPECIAL REQUESTS : NONE CULTURE : NO ANAEROBES ISOLATED REPORT STATUS : FINAL 10/25/2020 Radiology Reports (Most Recent Ten) * Exam Date Time Procedure Performing Provider Status 11/03/20 5:20 PM Knee 1 or 2 Views Right Jaylyn Nogueira ica; Auth (Verified) Notes: (Knee 1 or 2 Views Right) Reason For Exam: Follow-Up Fracture RESULT: Knee 1 or 2 Views Right Knee 1 or 2 Views Right, AP and lateral views of the right knee Reason: Follow-Up Fracture; Clinical Question(s): Position Fixation COMPARISON: 10/28/2020 10/20/2020 and 10/04/2020 FINDINGS: Side plate and multiple screws traverse right femoral shaft. Comminuted fracture again noted distalfemur. Radiopaque packing material projects over the soft tissues as well as several drains. No significant interval change. No new bone formation. IMPRESSION: Side plate and multiple compression screws traverse comminuted displaced mid to distal femur fracture. The hardware appears intact. Radiopaque packing/dressing projects over the distal femur/knee as well as drains. No new bone formation. Stable exam. WSN: [id number] Ordering Physician: Jaida Menjivar Dictated By: Juanito Castaneda MD Dictated Date/Time: 11/03/20 5:25 pm Reviewed By: Juanito Castaneda MD Signed By: Juanito Castaneda MD Signed Date/Time: 11/03/20 5:25 pm Transcribed By: VIPIN Transcribed Date/Time: 11/03/20 5:24 pm * Exam Date Time Procedure Performing Provider Status 11/03/20 5:20 PM XR Femur 2 Views Right Johanna Nogueira; Auth (Verified) Notes: (XR Femur 2 Views Right) Reason For Exam: Follow-Up Fracture RESULT: Femur 2 Views Right Femur 2 Views Right, AP and lateral views of the right femur Reason: Follow-Up Fracture; Clinical Question(s): Position Fixation COMPARISON: 10/28/2020 10/20/2020 and 10/04/2020 FINDINGS: Side plate and multiple screws traverse right femoral shaft. Comminuted fracture again noted distalfemur. Radiopaque packing material projects over the soft tissues as well as several drains. No significant interval change. No new bone formation. IMPRESSION: Side plate and multiple compression screws traverse comminuted displaced mid to distal femur fracture. The hardware appears intact. Radiopaque packing/dressing projects over the distal femur/knee as well as drains. No new bone formation. Stable exam. WSN: [id number] Ordering Physician: Jaida Menjivar Dictated By: Juanito Castaneda MD Dictated Date/Time: 11/03/20 5:24 pm Reviewed By: Juanito Castaneda MD Signed By: Juanito Castaneda MD Signed Date/Time: 11/03/20 5:24 pm Transcribed By: VIPIN Transcribed Date/Time: 11/03/20 5:23 pm * Exam Date Time Procedure Performing Provider Status 10/28/20 6:51 PM Knee 1 or 2 Views Right Peggy Bates; Auth (Verified) Notes: (Knee 1 or 2 Views Right) Reason For Exam: Pain RESULT: Knee 1 or 2 Views Right Femur 2 Views Right, Knee 1 or 2 Views Right, 4 views right femur, 2 views right knee Reason: Follow-Up Fracture; Clinical Question(s): Position Fixation COMPARISON: 10/20/2020 and 10/04/2020 FINDINGS: Side plate and multiple screws traverse right femoral shaft. Comminuted fracture again noted distalfemur. Radiopaque packing material projects over the soft tissues as well as several drains. IMPRESSION: Side plate and multiple compression screws traverse comminuted displaced mid to distal femur fracture. The hardware appears intact. Radiopaque packing/dressing projects over the distal femur/knee as well as drains. WSN: [id number] Ordering Physician: Jaida Menjivar Dictated By: Nupur Katz MD, I Dictated Date/Time: 10/28/20 8:13 pm Reviewed By: Nupur Katz MD, I Signed By: Nupur Katz MD, I Signed Date/Time: 10/28/20 8:13 pm Transcribed By: VIPIN Transcribed Date/Time: 10/28/20 8:10 pm * Exam Date Time Procedure Performing Provider Status 10/28/20 6:51 PM XR Femur 2 Views Right Sarah Bates [facility] (Verified) Notes: (XR Femur 2 Views Right) Reason For Exam: Follow-Up Fracture RESULT: Femur 2 Views Right Femur 2 Views Right, Knee 1 or 2 Views Right, 4 views right femur, 2 views right knee Reason: Follow-Up Fracture; Clinical Question(s): Position Fixation COMPARISON: 10/20/2020 and 10/04/2020 FINDINGS: Side plate and multiple screws traverse right femoral shaft. Comminuted fracture again noted distalfemur. Radiopaque packing material projects over the soft tissues as well as several drains. IMPRESSION: Side plate and multiple compression screws traverse comminuted displaced mid to distal femur fracture. The hardware appears intact. Radiopaque packing/dressing projects over the distal femur/knee as well as drains. WSN: [id number] Ordering Physician: Jaida Menjivar Dictated By: Nupur Katz MD, I Dictated Date/Time: 10/28/20 8:13 pm Reviewed By: Nupur Katz MD, I Signed By: Nupur Katz MD, I Signed Date/Time: 10/28/20 8:13 pm Transcribed By: VIPIN Transcribed Date/Time: 10/28/20 8:10 pm * Exam Date Time Procedure Performing Provider Status 10/27/20 6:29 PM Wrist Comp Min 3 Views Right Mike Jiménez (Verified) Notes: (Wrist Comp Min 3 Views Right) Reason For Exam: Follow-Up Fracture;recent avulsion fracture. followup RESULT: Wrist Comp Min 3 Views Right Wrist Comp Min 3 Views Right Reason: Follow-Up Fracture; recent avulsion fracture. follow up; Clinical Question(s): Fracture COMPARISON: None. FINDINGS: Snqgk-[id number] avulsion fracture involving the distal pole of the scaphoid. Remaining osseous structures are intact. Possible chronic healed fracture of the distal radial diaphysis Joint space narrowing at the radiocarpal joint with marked joint space narrowing of the first carpal joint and osteophytic overgrowth. Chronic injury or dystrophic ossification involving the ulnar styloid. Mild soft tissue swelling of the wrist. IMPRESSION: 1. Acute and subacute-appearing small avulsion fracture involving the distal pole of the scaphoid. 2. Degenerative change as described. WSN: [id number] Ordering Physician: Evin Bledsoe Dictated By: Haseeb Garvin DO Dictated Date/Time: 10/27/20 6:43 pm Reviewed By: Haseeb Garvin DO Signed By: Haseeb Garvin DO Signed Date/Time: 10/27/20 6:43 pm Transcribed By: VIPIN Transcribed Date/Time: 10/27/20 6:41 pm * Exam Date Time Procedure Performing Provider Status 10/24/20 8:56 AM Chest Portable Chirag Jackson; uLdin ( Verified) Notes: (Chest Portable) Reason For Exam: Shortness of Breath RESULT: Chest Portable Chest Portable AP upright at 8:18 AM REASON: Shortness of Breath; Clinical Question(s): Pulmonary Edema / Pulmonary Edema COMPARISON: 10/22/2020 FINDINGS: LINES AND TUBES: None. LUNGS AND PLEURA: Increased hazy opacity in the right lower lung. Mild diffuse crowding of the lung markings. No pneumothorax. HEART, MEDIASTINUM AND JASON: Unchanged. Unchanged right hilar prominence without corresponding abnormality on chest CT from 10/04/2020. BONES AND SOFT TISSUES: Rib fractures better seen on prior CT. IMPRESSION: Increased hazy opacity at the right lung base could be due to pleural fluid and/or atelectasis. Otherwise, no significant change. WSN: [id number] Ordering Physician: Evin Bledsoe Dictated By: Juanito Hall MD Dictated Date/Time: 10/24/20 9:19 am Reviewed By: Juanito Hall MD Signed By: Jaunito Hall MD Signed Date/Time: 10/24/20 9:19 am Transcribed By: VIPIN Transcribed Date/Time: 10/24/20 9:17 am * Exam Date Time Procedure Performing Provider Status 10/23/20 5:01 PM Wrist Comp Min 3 Views Left Horn , Dalia kyaraloi; Auth (Verified) Notes: (Wrist Comp Min 3 Views Left) Reason For Exam: Follow-Up Fracture RESULT: Wrist Comp Min 3 Views Left Wrist Comp Min 3 Views Left Reason: Follow-Up Fracture; Clinical Question(s): Fracture; Special Instructions: h o avulsion fracture left wrist 3-4 weeks ago diagnosed at urgent care by x-rays, left wrist still painful; Order Comment: 115pm Not ready COMPARISON: 10/13/2020 FINDINGS: No fracture identified. 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 WSN: [id number] Ordering Physician: Katina Mills Dictated By: Sedrick Steiner MD Dictated Date/Time: 10/23/20 5:12 pm Reviewed By: Sedrick Steiner MD Signed By: Sedrick Steiner MD Signed Date/Time: 10/23/20 5:12 pm Transcribed By: VIPIN Transcribed Date/Time: 10/23/20 5:08 pm * Exam Date Time Procedure Performing Provider Status 10/22/20 1:16 PM Chest Portable Russell Bey (Verified) Notes: (Chest Portable) Reason For Exam: Follow-Up Pleural Effusion RESULT: Chest Portable Chest Portable Reason: Follow-Up Pleural Effusion; Clinical Question(s): Follow-Up Abnormal Exam COMPARISON: 10/17/2020 FINDINGS: No acute cardiopulmonary process. Linear density right midlung zone may be due to mild fissural thickening or mild subsegmental atelectasis. IMPRESSION: No acute abnormality. Mild subsegmental atelectasis versus mild minor fissural thickening. WSN: [id number] Ordering Physician: Radha Mayo Dictated By: Sedrick Stenier MD Dictated Date/Time: 10/22/20 1:24 pm Reviewed By: Sedrick Steiner MD Signed By: Sedrick Steiner MD Signed Date/Time: 10/22/20 1:24 pm Transcribed By: VIPIN Transcribed Date/Time: 10/22/20 1:23 pm * Exam Date Time Procedure Performing Provider Status 10/20/20 3:50 PM XR Femur 2 Views Right Peggy Bates; Ludin (Verified) Notes: (XR Femur 2 Views Right) Reason For Exam: Follow-Up Fracture RESULT: Femur 2 Views Right Femur 2 Views Right, 2 views Reason: Follow-Up Fracture; Clinical Question(s): Position Fixation COMPARISON: Intraoperative images from 10/07/2020 FINDINGS: Status post ORIF of a comminuted distal femur fracture. Hardware appears intact. There is radiodensity projecting in the soft tissues lateral to the distal femur, which appears newfrom the intraoperative images. There is mild medial compartment osteoarthritis of the right knee. There are skin lesa. IMPRESSION: Status post ORIF of comminuted right distal femur fracture. WSN: [id number] Ordering Physician: Edith Reddy Dictated By: Juanito Hall MD Dictated Date/Time: 10/20/20 4:09 pm Reviewed By: Juanito Hall MD Signed By: Juanito Hall MD Signed Date/Time: 10/20/20 4:09 pm Transcribed By: VIPIN Transcribed Date/Time: 10/20/20 4:07 pm * Exam Date Time Procedure Performing Provider Status 10/17/20 8:43 AM Chest 2 Views Frontal and Lat Kt Scott (Verified) Notes: (Chest 2 Views Frontal and Lat) Reason For Exam: consistent increased WBC;Other: RESULT: Chest 2 Views Frontal and Lat Chest 2 Views Frontal and Lat Reason: consistent increased WBC: COMPARISON: Multiple priors with the most recent 10/06/2020 FINDINGS: LINES AND TUBES: None. LUNGS AND PLEURA: Low lung volumes with mild basilar atelectasis. Lungs are otherwise clear with no consolidation. The central pulmonary vasculature is prominent and indistinct. No pleural effusion. No pneumothorax. HEART, MEDIASTINUM AND JASON: Mild prominence of the cardiac silhouette, unchanged. Normal upper mediastinal and hilar contour. BONES AND SOFT TISSUES: No acute abnormality. IMPRESSION: No significant change compared with 10/06/2020. I have personally reviewed the images and I agree with this report. WSN: [id number] Ordering Physician: Sedrick Chris Dictated By: Nathan Canada DO Dictated Date/Time: 10/17/20 9:44 am Reviewed By: Brandon Lopez MD, V Signed By: Brandon Lopez MD, V Signed Date/Time: 10/17/20 9:49 am Transcribed By: VIPIN Transcribed Date/Time: 10/17/20 9:09 am Vital Signs Most recent to oldest [Reference Range]: 1 2 3 Height 160 cm (11/07/20 11:37 AM) 160 cm (11/07/20 7:36 AM) 160 cm (11/07/20 12:59 AM) Weight 133.3 kg (10/29/20 5:23 AM) 140.1 kg (10/26/20 5:26 AM) 134.3 kg (10/25/20 10:26 AM) Oxygen Saturation [94-100 %] 97 % (11/07/20 11:37 AM) 98 % (11/07/20 7:36 AM) 100 % (11/07/20 12:59 AM) Pulse Rate [55-90 bpm] 78 bpm (11/07/20 11:37 AM) 67 bpm (11/07/20 7:36 AM) 73 bpm (11/07/20 12:59 AM) Body Mass Index [18.5-24.99] 54.73 *>HHI* (10/26/20 5:26 AM) 52.46 *>HHI* (10/25/20 10:26 AM) 50.55 *>HHI* (10/23/20 7:13 AM) Blood Pressure [90-138/55-84 mm Hg] 134/47mm Hg (11/07/20 11:37 AM) 102/56mm Hg (11/07/20 7:36 AM) 135/57mm Hg (11/07/20 12:59 AM) Respiratory Rate [16-30 br/min] 18 br/min (11/07/20 6:59 PM) 20 br/min (11/07/20 4:03 PM) 20 br/min (11/07/20 4:03 PM) Temperature [96.8-100.4 DegF] 98.3 DegF (11/07/20 11:37 AM) 97.9 DegF (11/07/20 7:36 AM) 97.3 DegF (11/07/20 12:59 AM) Liters per Minute 4 L/min (11/07/20 11:37 AM) 6 L/min (11/06/20 5:06 PM) 6 L/min (11/06/20 11:40 AM) Mode of Delivery (Oxygen) Nasal cannula (11/07/20 11:37 AM) Room air (11/07/20 7:36 AM) CPAP (11/07/20 12:59 AM) Blood pressure sites Arm, right (11/07/20 11:37 AM) Arm, left (11/07/20 7:36 AM) Arm, right (11/07/20 12:59 AM) Temperature Route Oral (11/07/20 11:37 AM) Oral (11/07/20 7:36 AM) Oral (11/07/20 12:59 AM) Dry Weight 135.7 kg (10/04/20 5:38 PM) 135 kg (10/04/20 4:50 PM) Weight Obtained Via Bed scale (10/26/20 5:26 AM) Bed scale (10/24/20 6:51 AM) Bed scale (10/21/20 6:42 AM)
--- OUTSIDE RECORDS SUMMARY | 2024-02-07 15:44 | XMS_ITS | Continuity of Care Document ---
Author Organization [facility] Address [address] [place] [address]- Care Team Providers Care Striper Name Role Phone Annemarie Alfred MD Primary Care Physician Encounter [facility] [place](s): 12/08/23 - 01/07/24 [facility] [address] [place] [address] Allergies, Adverse Reactions, Alerts Substance [...] 0 Refills, Maintenance, 05/14/22 16:10:00 EDT, Tablet, [facility] [facility], Partial fill upon patient request if the prescription is for a schedule II opioid drug., 156, cm, 05/14/22 15:10:00... Start Date: 05/14/22 Status: Ordered aspirin 81 mg oral delayed release tablet 81 mg, By Mouth, Daily, # 30 tablet, Refills 0, Tot. Refills 0, Maintenance, 05/14/22 16:09:00 EDT,Route to Pharmacy Electronically, [facility] [facility], Partial fill upon patient request if the prescription is for a schedule II opioid drug., 15... Start Date: 05/14/22 Status: Ordered atorvastatin 80 mg oral tablet 1 tablet = 80 mg, By Mouth, Daily at bedtime, # 30 tablet, 0 Refills, Maintenance, 05/14/22 16:09:00 EDT, Tablet, [facility] [facility], Partial fill upon patient [...] 05/14/22 16:09:00 EDT, Route to Pharmacy Electronically, [facility] [facility], Partial fill upon patient [...] 05/14/22 16:09:00 EDT, Route to Pharmacy Electronically, [facility] [facility], Partial fill upon patient [...] Refills, Soft Stop, 09/01/23 15:31:00 EST, [facility]/pharmacy #[id number], Partial fill upon patient... Start Date: 09/01/23 Status: Ordered nitroglycerin 0.4 mg sublingual tablet 1 tablet = 0.4 mg, Sublingual, Every 5 minutes, PRN Chest Pain, 0 Refills, Maintenance, 05/14/22 7:11:00 EDT, Tablet, Partial fill upon patient request if the prescription is for a schedule II opioiddrug. Start Date: 05/14/22 Status: Ordered nystatin topical 458345 u/gm powder See Instructions, APPLY TO AFFECTED AREA TWICE A DAY TO THE SKIN FOLDS NEEDED, # 30 Gm, 0 Refills, [facility], 15, APPLY TO AFFECTED AREA TWICE A [...] Stacie Ortiz RN Position: [facility] SN RN Member Role: Primary Care Nurse Name: Nicole Alvarado RN Position: [facility] RN Member Role: Primary Care Nurse Name: Pau Olmedo RN Position: [facility] RN Member Role: Primary Care Nurse Name: Rodrigo Noel RN Position: [facility] RN Member Role: Primary Care Nurse Name: Ximena Constantino RN Position: [facility] SN RN Member Role: Primary Care Nurse Name: Kylie Wilde RN Position: [facility] RN Member Role: Primary Care Nurse Name: Domenica Ramirez RN Position: [facility] RN Member Role: Primary Care Nurse Name: Klarissa Ko RN Position: [facility] RN Member Role: Primary Care Nurse Name: Alma Lott RN Position: [facility] SN RN Member Role: Primary Care Nurse Name: Annemarie Alfred MD Position: Reference Physician Member Role: PCP Address: Address: [address] [place] [address] Name: Caroline Shirley RN Position: [facility] RN Member Role: Primary Care Nurse Name: Chelle Ricardo RN Position: [facility] RN Member Role: Primary Care Nurse Name: Kelsi Kim RN Position: [facility] RN Member Role: Primary Care Nurse Name: Mireya Catherine RN Position: [facility] RN Member Role: Primary Care Nurse Name: Lizet Hilliard RN Position: [facility] RN Member Role: Primary Care Nurse Name: Josefina Leonard RN Position: [facility] SN RN Member Role: Primary Care Nurse Name: Prem Barrera MD Position: [facility] Renal MD Member Role: Lifetime Consulting Physician Address: Address: [address] [place] [address] [address] [facility] [place] [place] [address]- Name: Alma Reyes RN Position: [facility] RN Member Role: Primary Care Nurse Name: Lata Hernandez RN Position: [facility] [employer] [employer] Member Role: Primary Care Nurse Name: Atul Molina MD Position: [facility] Renal MD Member Role: Lifetime Consulting Physician Address: Address: [address] [place] [address] [facility] [place] [address]- Name: Gema Jean Baptiste RN Position: [facility] [...] Care Nurse Name: Ramya Cook RN Position: [facility] Member Role: Primary Care Nurse Care Team Related Persons Name: HARVEY CASAS Address: home [address] [place] [address]
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
[2024-02-07 16:46] VITALS: BP 104/37; PULSE 61; RESP 13; O2SAT 90
[2024-02-07 17:50] LABS: MANUAL DIFF FLAG NO
[2024-02-07 17:53] LABS: Basophils Percent Auto 0.4 % (0-2); Eosinophils Absolute Auto 0.2 X10*3/uL (0.0-0.4); Hematocrit 29.5 % (37.0-47.0); Hemoglobin 8.6 g/dl (12.0-16.0); Imm Gran Abs Auto 0.05 X10*3/uL (0.00-0.03); Imm Gran Pct Auto 0.6 % (0.0-0.4); Lymphocytes Absolute Auto 1.1 X10*3/uL (1.2-4.9); Lymphocytes Percent Auto 12.2 % (20-40); Mean Corpuscular HGB Conc 29.2 g/dl (31.0-35.0); Mean Corpuscular Hemoglobin 25.1 pg (27.0-33.0); Mean Corpuscular Volume 86.3 fL (80.0-98.0); Mean Platelet Volume 10.1 fL (9.4-12.3); Monocytes Absolute Auto 0.5 X10*3/uL (0.1-1.2); Monocytes Percent Auto 5.9 % (2-11); Neutrophils Absolute Auto 7.2 x10*3/uL (2.0-8.3); Neutrophils Percent Auto 78.9 % (45-73); Platelet Count 192 X10*3/uL (160-400); Red Blood Count 3.42 X10*6/uL (4.20-5.50); Red Cell Distribution Width 17.5 % (11.0-16.0); White Blood Count 9.1 X10*3/uL (4.8-10.8)
[2024-02-07 18:16] LABS: Alanine Aminotransferase 9 U/L (0-31); Albumin Level 3.8 g/dL (3.5-5.0); Alkaline Phosphatase 87 U/L (39-117); Anion Gap 12 (12-20); Aspartate Amino Transferase 11 U/L (5-31); Bilirubin Direct < 0.2 mg/dL (0.0-0.5); Bilirubin Total 0.1 mg/dL (0.0-1.0); Blood Urea Nitrogen 68 mg/dL (9-16); C Reactive Protein 1.84 mg/dL (< or = 0.50); Calcium 8.9 mg/dL (8.4-10.2); Carbon Dioxide 29 mmol/L (22-29); Chloride 107 mmol/L (96-108); Creatinine Clr Calc Pharmacy 32.6; Estimated Glomerular Filt Rate 23; Glucose Random 102 mg/dL (60-115); Sodium 142 mmol/L (135-145); Total Protein 6.9 g/dL (6.5-8.0)
--- NOTE | 2024-02-07 18:39 | ECG_ITS ---
Test Reason : wound Blood Pressure : / mmHG Vent. Rate : 065 BPM Atrial Rate : 065 BPM P-R Int : 168 ms QRS Dur : 086 ms QT Int : 392 ms P-R-T Axes : 059 048 047 degrees QTc Int : 407 ms Normal sinus rhythm Low voltage QRS Cannot rule out Anterior infarct , age undetermined Abnormal ECG When compared with ECG of 03-MAY-2022 20:55, No significant change was found Referred By: Branden Monge Electronically Signed By:CHANO BENAVIDES MD
[2024-02-07] MEDS: Sodium Zirconium Cyclosilicate 10 GM POWD.PACK PO (19:09)
--- NOTE | 2024-02-07 19:10 | PC.NURSE ---
Patient refusing IV at this time, provider aware to come to bedside to speak with patient about plan of care.
[2024-02-07 19:23] VITALS: BP 107/41; PULSE 63; RESP 15; O2SAT 90
[2024-02-07] MEDS: 0.9 % Sodium Chloride 1,000 ML 999 ML IV (20:12)
[2024-02-07] MEDS: Calcium Gluconate/NaCl,Iso-Osm 2 GM/100 ML PLAST..BAG IV (20:13)
--- NOTE | 2024-02-07 20:38 | PHA.MEDREC ---
Pharmacy Consult ? Medication Reconciliation Pharmacy has completed the medication reconciliation. Patient Refused to confirm med list. Patient says I an not staying. so, there is no point in going over my medication. confirmed what was on claims.
--- NOTE | 2024-02-07 21:25 | PC.NURSE ---
Patient's wound dressed with zerofoam and meplex.
[2024-02-07 22:25] VITALS: BP 107/41; PULSE 63; RESP 15; TEMP 36.7; O2SAT 90
--- NOTE | 2024-02-08 08:47 | MHC.CM.ED ---
Received telephone call from [facility]. Patient is active with their was agency. Was d/c'd home 02/06. ER d/c sent via [facility].
== END 2024-02-07 22:33 | disposition left against medical advice (07) ==
PROVIDERS: Emergency Provider Emergency Medicine
DX: S81.801A Unspecified open wound, right lower leg, initial encounter (principal); E87.5 Hyperkalemia; N28.9 Disorder of kidney and ureter, unspecified; M79.604 Pain in right leg; R94.31 Abnormal electrocardiogram [ECG] [EKG]; X58.XXXA Exposure to other specified factors, initial encounter; Y33.XXXA 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ed events, undetermined intent, initial encounter; Y93.89 Activity, other specified; Y92.89 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ed places as the place of occurrence of the external cause; Y99.8 Other external cause status; Z79.899 Other long term (current) drug therapy
CPT/HCPCS: 36415; 73552; 80048; 80076; 85025; 86140; 93005; 96374; 99284; 99285; J0613

== ENCOUNTER → 2024-02-07 18:39 | Outpatient (BNV) | payer MEDICARE, MEDICAID, SELFPAY | PROVIDERS: Emergency Provider Emergency Medicine; Visit Provider Internal Medicine Cardiovascular Disease | DX: E87.6 Hypokalemia (principal) | CPT/HCPCS: 93010 ==

== ENCOUNTER 2024-02-08 14:28 | Emergency (ER) | payer MEDICARE, MEDICAID, SELFPAY ==
[2024-02-08 15:02] VITALS: BP 136/44; PULSE 72; RESP 20; TEMP 35.9; O2SAT 92; BMI 51.0
--- OUTSIDE RECORDS SUMMARY | 2024-02-08 15:52 | XMS_ITS | Patient Health Record ---
Author Organization [facility] Address [address] [place] [address] Care Team Providers Care Incident Response Coordinator Name Role Phone Gal Solorio MD Primary Care Provider Unavail able Debbi, Ritchie Unavailable [phone] LuciaRowan isidro Unavailable [phone] ALLERGIES No Known Allergies REASON FOR REFERRAL [...] Risk SNOMED Code Notes Problem Atherosclerosis of seneca-cay[place] artery of both lower extremities, with unspecified presence of clinical manifestation (I70.203) Active confirmed Atherosclerosis of [place]eca-c[place] arteries of the extremities ([id number]) VITAL SIGNS Height 5ft 1in in 03/04/2023 Weight 270 lbs 03/04/2023 BMI 51.01 kg/m2 03/04/2023 PROCEDURES Procedure Date Ordered Date Performed Result Body Sit e 32946-[id number] NAIL, 1-5 03/04/2023 N/A 14963-BCNU SKIN LESIONS, 2 TO 4 03/04/2023 N/A [id number] DYSTROPHIC NAILS ANY # 03/04/2023 N/A Encounters Encounter Location Date Provider Diagnosis [facility] [address] 02[facility]20[facility] [address] [place] [address] 02/24/2023 Rowan Tho [facility] [address] 03/04/2023 Ritchie Werner Atherosclerosis of [place]eca-c[place] artery of both lower extremities, with unspecified [...] (ICD-1 0 - B35.1) 03/04/2023 Atherosclerosis of [place] artery of both lower extremities, with unspecified [...] TREATMENT Pending Test Test Name Order Date [id number] NAIL, 1-5 03/04/2023 75068-XSAT SKIN LESIONS, 2 TO 4 03/04/20 23 [id number] DYSTROPHIC NAILS ANY # Insurance Providers Payer Name Payer Address Payer Phone Subscriber Number Group Number Insured Name Patient Relationship to Insured Coverage Start Date Coverage End Date Medicare National Govt Sv[employer] [address] [place] [address] [id number] Sample, Brianne Self - patient is the [...]
--- NOTE | 2024-02-08 16:05 | ECG_ITS ---
Test Reason : HYPOKALEMIA Blood Pressure : / mmHG Vent. Rate : 060 BPM Atrial Rate : 060 BPM P-R Int : 128 ms QRS Dur : 082 ms QT Int : 400 ms P-R-T Axes : 021 043 045 degrees QTc Int : 400 ms Normal sinus rhythm with sinus arrhythmia Low voltage QRS Borderline ECG When compared with ECG of 07-FEB-2024 19:14, No significant change was found Referred By: Lizet Mahoney Electronically Signed By:CHANO BENAVIDES MD
[2024-02-08 17:17] LABS: MANUAL DIFF FLAG NO
[2024-02-08 17:38] LABS: Alanine Aminotransferase 10 U/L (0-31); Albumin Level 3.9 g/dL (3.5-5.0); Alkaline Phosphatase 97 U/L (39-117); Anion Gap 12 (12-20); Aspartate Amino Transferase 14 U/L (5-31); Bilirubin Direct < 0.2 mg/dL (0.0-0.5); Bilirubin Total 0.2 mg/dL (0.0-1.0); Blood Urea Nitrogen 50 mg/dL (9-16); Calcium 9.3 mg/dL (8.4-10.2); Carbon Dioxide 29 mmol/L (22-29); Chloride 109 mmol/L (96-108); Creatinine Clr Calc Pharmacy 46.4; Estimated Glomerular Filt Rate 35; Glucose Random 99 mg/dL (60-115); Magnesium 2.7 mg/dL (1.6-2.6); Potassium 6.1 mmol/L (3.3-5.1); Sodium 144 mmol/L (135-145); Total Protein 7.1 g/dL (6.5-8.0)
[2024-02-08 17:40] LABS: Basophils Absolute Auto 0.1 X10*3/uL (0.0-0.2); Basophils Percent Auto 0.6 % (0-2); Eosinophils Absolute Auto 0.2 X10*3/uL (0.0-0.4); Eosinophils Percent Auto 1.9 % (0-4); Hematocrit 31.2 % (37.0-47.0); Imm Gran Abs Auto 0.09 X10*3/uL (0.00-0.03); Imm Gran Pct Auto 1.1 % (0.0-0.4); Lymphocytes Absolute Auto 0.9 X10*3/uL (1.2-4.9); Lymphocytes Percent Auto 11.3 % (20-40); Mean Corpuscular HGB Conc 28.8 g/dl (31.0-35.0); Mean Corpuscular Hemoglobin 24.9 pg (27.0-33.0); Mean Corpuscular Volume 86.2 fL (80.0-98.0); Mean Platelet Volume 10.1 fL (9.4-12.3); Monocytes Absolute Auto 0.5 X10*3/uL (0.1-1.2); Monocytes Percent Auto 5.6 % (2-11); Neutrophils Absolute Auto 6.4 x10*3/uL (2.0-8.3); Neutrophils Percent Auto 79.5 % (45-73); Platelet Count 207 X10*3/uL (160-400); Red Blood Count 3.62 X10*6/uL (4.20-5.50); Red Cell Distribution Width 17.2 % (11.0-16.0); White Blood Count 8.1 X10*3/uL (4.8-10.8)
--- NOTE | 2024-02-08 18:10 | ED_ITS ---
HPI - General Adult General Chief complaint: Recheck/Abnormal Lab/Rx Stated complaint: ABNORMAL RENAL LABS PER EMS Time Seen by Provider: 02/08/24 17:30 Source: patient Mode of arrival: EMS Limitations: no limitations History of Present Illness ED Provider: Greg HPI narrative: 64-year-old female with past medical history significant for COPD on chronic 4 L supplemental O2, coronary artery disease, morbid obesity, paroxysmal AFib, Pickwickian syndrome, history of opiate abuse, chronic wound to right leg presents for evaluation of ?they told me to come back because my creatinine is high. ? Patient has been following with Wound Care for a right thigh wound related to a previous traumatic injury 3 years ago Patient states that she used to have a pinpoint hole in the skin to the right lateral thigh. Over the last few weeks this has progressed to a larger open wound and the patient feels that there is bone sticking out of the wound. The patient initially saw her wound care at [facility] and was told she would likely need to go to [place] to have this repaired The patient is on chronic Bactrim for prophylaxis due to the chronic wound She reports that about 3 months ago infectious disease at [facility] increase her to a double-strength Bactrim dose She denies any fevers, chills Patient is here because her ?BUN, creatinine and potassium were elevated. She was seen in this ER yesterday and had a potassium of 6.0, BUN of 68 and a creatinine of 2.19. She was treated with IV fluids, low, and calcium gluconate. 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 100 mcg-umeclid 1 ea inhalation DAILY 11/15/23 02/08/24 62.5 mcg-vilant 25 mcg inhalat.powder (Trelegy Ellipta) Previous Rx's ?Medication ?Instructions ?Recorded doxycycline hyclate 100 mg tablet 100 mg PO BID #14 tabs 02/08/24 Allergies Allergy/AdvReac Type Severity Reaction Status Date / Time gabapentin Allergy Mild Anxiety Verified 02/08/24 15:05 morphine [MORPHINE] Allergy Unknown ANAPHALAXIS, Verified 02/08/24 15:05 anaphylaxis propofol [From Diprivan] Allergy Anaphylaxis Verified 02/08/24 15:05 Review of Systems 2 Constitutional: Constitutional: Denies body ache(s), Denies chills and Denies fever(s) Eyes: Eyes: Denies blurry vision ENT: Denies dizziness and Denies dry mouth Cardiovascular: Cardiovascular: Denies chest pain and Denies dyspnea Respiratory: Respiratory: Denies cough and Denies dyspnea Gastrointestinal: Gastrointestinal: Denies abdominal pain, Denies nausea and Denies vomiting Integumentary/Breasts: Skin/Breast: Denies erythema and Reports wounds Neurologic: Denies dizziness PMFSH Past Medical History Medical History Open wound of lower extremity COPD (chronic obstructive pulmonary disease) Femur fracture Crohn's colitis Immobility Morbid obesity due to excess calories Adopted Femur fracture, right Closed tibia fracture Acute on chronic respiratory failure with hypoxia and hypercapnia Wound of left lower extremity Nonrheumatic mitral (valve) stenosis Acute on chronic right heart failure Paroxysmal atrial fibrillation Dyspnea ALEKSEY treated with BiPAP Hypoventilation associated with obesity Pickwickian syndrome Chronic hypercapnic respiratory failure Opioid use disorder Surgical History Hx of cholecystectomy History of open reduction and internal fixation (ORIF) procedure Status post open reduction and internal fixation (ORIF) of fracture Recent surgical procedure on lower extremity Family History Family History Other Adopted Social History Social History Household Members: Spouse, Family and Children Household Members Other:: , Hoa. Daughter Carolyn, 21. Daughter's Boyfriend, 22. Neice, 21 Housing: House Do you presently have visiting nurse or other home services: No Alcohol intake: former Year quit: 1989 Patient Tobacco Use Status: Former Tobacco user Years Smoked: 25 Smoked in Last 30 Days: No Second Hand Smoke Exposure: No Use of substances other than those prescribed or required for medical reasons: No Advance Directives: Yes Advance Directives on File: Yes Advance Directives Date on File: 12/16/20 Do you have a plan to hurt others: No Plan Patient : No service: Yes Current occupational status: disabled Physical Exam ED Vital Signs: Vital Signs - 24 hr 02/08/24 15:02 02/08/24 18:40 02/08/24 20:25 Temperature 96.6 F L 98.7 F Pulse Rate 72 67 68 Respiratory Rate 20 15 16 Blood Pressure 136/44 L 150/54 H 143/79 H Pulse Oximetry 92 94 98 Oxygen Delivery Method Nasal Cannula Nasal Cannula Room Air Oxygen Flow Rate 2 3 02/08/24 22:05 Temperature 97.8 F Pulse Rate 72 Respiratory Rate 16 Blood Pressure 124/87 Pulse Oximetry 97 Oxygen Delivery Method Nasal Cannula Oxygen Flow Rate 3 BMI result Body Mass Index 51.0 Const General: comfortable, no acute distress, alert and awake Nutritional Appearance: well nourished Orientation/consciousness: patient oriented x3 HENMT Head: Yes normocephalic and Yes atraumatic Eyes Eyelids: Yes eyelids normal Conjunctivae: conjunctivae normal Sclerae: sclerae normal Corneas: corneas normal Pupils: Equal, round and reactive pupils present EOM: EOMs intact bilaterally Neck Neck: Yes full ROM Resp Effort & Inspection: normal respiratory effort, able to speak in complete sentences, no audible wheezes and not labored Auscultation: clear to auscultation bilaterally (Diminished but otherwise clear to auscultation) Cardio Rate: regular rate Rhythm: regular rhythm GI Inspection: No distended Palpation (GI): Soft to palpation, not firm, nontender, no guarding and not rigid Skin Other: There is an approximately 1 x 3 cm open wound to the right lateral thigh. There is visible and palpable bone like material at the surface of the wound. There is surrounding granulomatous tissue but no significant erythema or drainage from the wound General skin exam: elasticity normal Neuro General: patient oriented x3 Cranial nerves: Yes Equal, round and reactive pupils present and Yes Bilaterally intact EOM present Cognition (Neuro): normal cognition Course Reevaluation(s) Reevaluation #1: Patient was seen by the hospitalist. The patient is willing to stay if she absolutely has to but would prefer to be discharged home and follow-up in [place] for her femur issue. Plan to treat the patient's hyperkalemia and repeat labs Time: 19:52 Reevaluation #2: Patient requesting oxycodone that she takes for chronic pain. I checked her prescription monitoring program and she does take a significant amount of oxycodone. She also has a prescription bottle with her indicating she felt a prescription 02/02/2024 prescribing oxycodone 5 mg tablets to take for at a time 3 times per day. I ordered oxycodone 20 mg for her Time: 21:02 Reevaluation #3: Patient's repeat potassium has improved to 5.5. Her renal function has also improved with a creatinine that within normal limits of 1.37. I discussed these findings with the patient, she would still like to be discharged home. We will discontinue the Bactrim inch switch this to doxycycline. The patient will call her infectious disease to let them know change and she will follow with her PCP for repeat labs in 1 week. The patient's femur issues will need to be followed up at tertiary facility likely in [place] and the patient is aware of this. Return precautions were given Time: 22:42 Medications Administered Discontinued Medications Generic Name Dose Route Start Last Admin Trade Name Freq PRN Reason Stop Dose Admin Doxycycline Monohydrate 100 mg 02/08/24 19:49 02/08/24 20:58 Doxycycline Monohydrate 100 Mg Capsule PO 02/08/24 19:50 100 mg ONCE ONE Administration Sodium Chloride 1,000 mls @ 999 mls/hr 02/08/24 18:00 02/08/24 22:15 Ns IV 02/08/24 19:00 Infused .Q1H1M BEN Infusion Calcium Gluconate 2 gm in 100 mls @ 50 mls/hr 02/08/24 17:54 02/08/24 20:57 Calcium Gluconate IV 02/08/24 19:53 Infused ONCE ONE Infusion Dextrose 250 mls @ 750 mls/hr 02/08/24 19:48 02/08/24 21:18 D10 IV 02/08/24 20:07 Infused Q15M ONE Infusion Insulin Human Regular 5 unit 02/08/24 19:48 02/08/24 20:58 Insulin Regular, Human 100 Unit/Ml 10 Ml Vial IVPUSH 02/08/24 19:49 5 unit ONCE ONE Administration Oxycodone HCl 20 mg 02/08/24 21:01 02/08/24 21:46 Oxycodone Hcl Immed Release 5 Mg Tablet PO 02/08/24 21:02 20 mg ONCE ONE Administration Sodium Zirconium Cyclosilicate 10 gm 02/08/24 17:54 02/08/24 19:05 Sodium Zirconium Cyclosilicate 10 Gm Powd.Pack PO 02/08/24 17:55 10 gm ONCE ONE Administration Medical Decision Making Medical Decision Making [facility] Narrative: 64-year-old female with past medical history as documented above presents for evaluation of abnormal labs patient was seen yesterday and recommend admission due to hyperkalemia and VERN. The patient ultimately declined and left against medical advice. The patient's creatinine today has improved as well as her BUN from 2.19 and 68 to 1.52 and 50 respectively. The patient's potassium has worsened to 6.1 despite being given IV fluids, calcium gluconate and low, yesterday. The patient has no fever, no white count, no obvious acute infection. The patient will likely require definitive treatment of her right leg wound and femur fracture at [facility]. The patient states she is willing to stay today for treatment of her hyperkalemia. I believe that the patient's renal injury is likely related to chronic Bactrim use. 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 Differential Diagnosis Differential Diagnoses: The differential diagnosis associated with the presentation includes Hyperkalemia VERN Acute tubular necrosis Chronic kidney disease Chronic wound Admission/Observation Consideration of admission/observation: Escalation of care including admission/observation considered Patient was recommended for admission due to hyperkalemia that is worsening since yesterday Lab Data [facility] Lab Attestation statement: I reviewed the patient's lab results. No leukocytosis. The patient does have a chronic anemia that is normocytic and consistent with her baseline. Hemoglobin today of 9.0 and hematocrit 31.2 are slightly improved compared to yesterday. As mentioned above, chemistries are significant for a potassium of 6.1, BUN of 50 and a creatinine of 1.52. 02/08/24 17:14 02/08/24 22:16 Labs: Lab Results 02/08/24 02/08/24 Range/Units 17:14 22:16 WBC 8.1 (4.8-10.8) X10*3/uL RBC 3.62 L (4.20-5.50) X10*6/uL Hgb 9.0 L (12.0-16.0) g/dl Hct 31.2 L (37.0-47.0) % MCV 86.2 (80.0-98.0) fL MCH 24.9 L (27.0-33.0) pg MCHC 28.8 L (31.0-35.0) g/dl RDW 17.2 H (11.0-16.0) % Plt Count 207 (160-400) X10*3/uL MPV 10.1 (9.4-12.3) fL Immature Gran % (Auto) 1.1 H (0.0-0.4) % Neut % (Auto) 79.5 H (45-73) % Lymph % (Auto) 11.3 L (20-40) % [place] % (Auto) 5.6 (2-11) % Eos % (Auto) 1.9 (0-4) % Baso % (Auto) 0.6 (0-2) % Lymph # (Auto) 0.9 L (1.2-4.9) X10*3/uL [place] # (Auto) 0.5 (0.1-1.2) X10*3/uL Eos # (Auto) 0.2 (0.0-0.4) X10*3/uL Baso # (Auto) 0.1 (0.0-0.2) X10*3/uL Abs Immat Gran (auto) 0.09 H (0.00-0.03) X10*3/uL Absolute Neuts (auto) 6.4 (2.0-8.3) x10*3/uL Absolute Nucleated RBC 0.000 (0.0-0.012) X10*3/uL Nucleated RBC % (auto) 0.0 (0.0-0.2) /100WBC ESR 38 H (0-20) MM/HR Sodium 144 145 (135-145) mmol/L Potassium 6.1 H* 5.5 H (3.3-5.1) mmol/L Chloride 109 H 111 H (96-108) mmol/L Carbon Dioxide 29 29 (22-29) mmol/L Anion Gap 12 11 L (12-20) BUN 50 H 44 H (9-16) mg/dL Creatinine 1.52 H 1.37 (0.5-1.4) mg/dL Estim Creat Clear Calc 46.4 51.5 Estimated GFR 35 39 Random Glucose 99 129 H (60-115) mg/dL Calcium 9.3 9.5 (8.4-10.2) mg/dL Magnesium 2.7 H (1.6-2.6) mg/dL Total Bilirubin 0.2 (0.0-1.0) mg/dL Direct Bilirubin < 0.2 (0.0-0.5) mg/dL AST 14 (5-31) U/L ALT 10 (0-31) U/L Alkaline Phosphatase 97 (39-117) U/L C-Reactive Protein 1.62 H (< or = 0.50) mg/dL Total Protein 7.1 (6.5-8.0) g/dL Albumin 3.9 (3.5-5.0) g/dL Discharge Plan Discharge Clinical Impression: Acute hyperkalemia, VERN (acute kidney injury) Patient Disposition: Home, Self-Care Instructions: Acute Kidney Injury (DC), Hyperkalemia (ED) Additional Instructions: Your potassium was elevated today to 6.1 and improved with treatment. I recommend that you discontinue the Bactrim as I think this is likely causing your kidney issues. Instead take doxycycline twice daily Call your infectious disease provider to let them know that we change her antibiotic You will need to follow-up at a tertiary facility for the right femur issue Return for new or worsening symptoms You should also avoid any medications that affect her kidney such as Advil, Aleve, ibuprofen Prescriptions: New doxycycline hyclate 100 mg tablet 100 mg PO BID Qty: 14 0RF No Action sulfamethoxazole-trimethoprim [Bactrim DS] 800-160 mg Tablet 1 tab PO Q12H Trelegy Ellipta 100-62.5-25 mcg blister with device 1 ea inhalation DAILY Roque-24 400 mg capsule,extended release 24hr 400 mg PO DAILY Print Language: Arabic
[2024-02-08 18:40] VITALS: BP 150/54; PULSE 67; RESP 15; O2SAT 94
[2024-02-08 18:41] LABS: C Reactive Protein 1.62 mg/dL (< or = 0.50)
[2024-02-08] MEDS: 0.9 % Sodium Chloride 1,000 ML 999 ML IV (19:05)
[2024-02-08] MEDS: Sodium Zirconium Cyclosilicate 10 GM POWD.PACK PO (19:05)
[2024-02-08] MEDS: Calcium Gluconate/NaCl,Iso-Osm 2 GM/100 ML PLAST..BAG IV (19:05)
[2024-02-08 19:10] LABS: Erythrocyte Sedimentation Rate 38 MM/HR (0-20)
--- NOTE | 2024-02-08 19:11 | PC.NURSE ---
this rn assumed care of pt, pt a&ox4, respirations even and unlabored. pt denies pain at this time, pt medicated per mar.
[2024-02-08 20:25] VITALS: BP 143/79; PULSE 68; RESP 16; TEMP 37.1; O2SAT 98
--- NOTE | 2024-02-08 20:32 | MHC.EDTECH ---
This pct just assumed care of patient ,vitals taken ,this pct offer Patient to moved into bed ,Patient stated she is comfortable in the wheeled chair .
[2024-02-08] MEDS: Dextrose 10 % 250 ML 750 ML IV (20:58)
[2024-02-08] MEDS: Doxycycline Monohydrate 100 MG CAPSULE PO (20:58)
[2024-02-08] MEDS: Insulin Regular, Human 100 UNIT/ML 10 ML VIAL IVPUSH (20:58)
--- NOTE | 2024-02-08 21:12 | PHA.MEDREC ---
Pharmacy Consult ? Medication Reconciliation Pharmacy has completed the medication reconciliation.Patient Refused to confirm med list. Patient says I an not staying. so, there is no point in going over my medication. confirmed what was on claims. Patient back from yesterdays when she left on her own. patient refuses to stay.
[2024-02-08] MEDS: oxyCODONE HCl Immed Release 5 MG TABLET 20 MG PO (21:46)
[2024-02-08 22:05] VITALS: BP 124/87; PULSE 72; RESP 16; TEMP 36.6; O2SAT 97
[2024-02-08 22:33] LABS: Anion Gap 11 (12-20); Blood Urea Nitrogen 44 mg/dL (9-16); Calcium 9.5 mg/dL (8.4-10.2); Carbon Dioxide 29 mmol/L (22-29); Chloride 111 mmol/L (96-108); Creatinine Clr Calc Pharmacy 51.5; Estimated Glomerular Filt Rate 39; Glucose Random 129 mg/dL (60-115); Potassium 5.5 mmol/L (3.3-5.1); Sodium 145 mmol/L (135-145)
[2024-02-08 23:18] VITALS: BP 124/87; PULSE 72; RESP 16; TEMP 36.6; O2SAT 97
== END 2024-02-08 23:23 | disposition home or self-care (01) ==
PROVIDERS: Physician Assistant; Emergency Provider Emergency Medicine
DX: E87.6 Hypokalemia (principal); R79.89 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ed abnormal findings of blood chemistry; I49.9 Cardiac arrhythmia, unspecified; J44.9 Chronic obstructive pulmonary disease, unspecified; G89.29 Other chronic pain; Z99.81 Dependence on supplemental oxygen; Z79.899 Other long term (current) drug therapy; Z87.891 Personal history of nicotine dependence
CPT/HCPCS: 36415; 80048; 80076; 83735; 85025; 85652; 86140; 93005; 96365; 96366; 96367; 96375; 99285; J0613

== ENCOUNTER → 2024-02-08 16:05 | Outpatient (BNV) | payer MEDICARE, MEDICAID, SELFPAY | PROVIDERS: Emergency Provider Emergency Medicine; Visit Provider Internal Medicine Cardiovascular Disease | DX: E87.6 Hypokalemia (principal) | CPT/HCPCS: 93010 ==

== ENCOUNTER 2024-04-03 00:47 | Inpatient (IN) | payer MEDICARE, MEDICAID, SELFPAY ==
[2024-04-03] VITALS (19 sets, daily range): BP systolic 145–195; BP diastolic 57–92; PULSE 70–94; RESP 13–28; TEMP 36.1–36.7; O2SAT 88–100; BMI 56.1
--- NOTE | ~2024-04-03 | XR_ITS ---
EXAMINATION: XR CHEST CLINICAL INFORMATION: Dyspnea COMPARISON: 05/22/2022 TECHNIQUE: Frontal view of the chest was obtained. FINDINGS: Left PICC tip lies in the region of the mid SVC. Lung volumes are symmetric. No focal consolidation is seen. No evidence of pneumothorax or significant pleural effusion. Central vascular congestion is suspected, without overt edema. Cardiac silhouette remains enlarged. Calcification is present at the aortic arch. No acute osseous findings are seen. XR/XR chest 1V IMPRESSION: Suspect central vascular congestion without overt edema. Enlarged cardiac silhouette. Electronically signed by: Jason Sands MD 04/03/2024 03:02 AM EDT
--- NOTE | 2024-04-03 00:55 | ECG_ITS ---
Test Reason : sob Blood Pressure : / mmHG Vent. Rate : 089 BPM Atrial Rate : 089 BPM P-R Int : 152 ms QRS Dur : 086 ms QT Int : 346 ms P-R-T Axes : 056 051 062 degrees QTc Int : 420 ms Normal sinus rhythm Normal ECG When compared with ECG of 08-FEB-2024 17:29, Vent. rate has increased BY 29 BPM Referred By: Flores Wiley Electronically Signed By:VISHAL GONSALEZ
--- NOTE | 2024-04-03 00:55 | ED.SOB ---
HPI - SOB/Dyspnea General Chief Complaint: Dyspnea Stated Complaint: SOB Time Seen by Provider: 04/03/24 00:49 Source: patient, EMS and old records reviewed Mode of arrival: EMS Limitations: no limitations History of Present Illness ED Provider: MELISSA AMAYA Narrative: 64 yo female with PMH of COPD on 3 to 4L NC, leg edema, NSTEMI, PTSD, anxiety, PAF, ALEKSEY on Bipap, opioid use disorder, R lower leg wound s/p chronic wound infection and osteo with L arm PICC getting vanco infusions, states she went to [place] with her family and started to get sick the past couple of days with wheezing and cough. She denies fevers or chills. EMS found her looking unwell and found her 86% on 5L NC. She was not on her home Bipap she is supposed to use at night. EMS gave her a duoneb and threw her on a NRB with sats up to 97%. Patient denies any chest pain. States no one else in the family got sick. She is not currently on prednisone. MD elicited complaint: shortness of breath and cough Pertinent past history: COPD and asthma Onset (ago): day(s) (2) Context: recent travel Timing: progressively worsening Severity: moderate Exacerbating factors: exertion and coughing Relieving factors: oxygen, rest and bronchodilators Known history of: COPD Associated symptoms: cough and wheezing Treatment prior to arrival: oxygen and bronchodilator Related Data Home Medications ?Medication ?Instructions ?Recorded ?Confirmed theophylline 400 mg 400 mg PO DAILY 01/18/23 02/08/24 capsule,extended release 24 hr (Roque-24) sulfamethoxazole 800 1 tab PO Q12H 03/10/23 02/08/24 mg-trimethoprim 160 mg tablet (Bactrim DS) fluticasone fur. 100 mcg-umeclid 1 ea inhalation DAILY 11/15/23 02/08/24 62.5 mcg-vilant 25 mcg inhalat.powder (Trelegy Ellipta) Previous Rx's ?Medication ?Instructions ?Recorded doxycycline hyclate 100 mg tablet 100 mg PO BID #14 tabs 02/08/24 Allergies Allergy/AdvReac Type Severity Reaction Status Date / Time gabapentin Allergy Mild Anxiety Verified 04/03/24 01:03 morphine [MORPHINE] Allergy Unknown ANAPHALAXIS, Verified 04/03/24 01:03 anaphylaxis propofol [From Diprivan] Allergy Anaphylaxis Verified 04/03/24 01:03 Review of Systems Review of Systems: Constitutional : No Fever, pos Chills ENT/Mouth : No Hoarseness, No sore throat, pos Rhinorrhea Eyes: No Redness, No Discharge, No Vision Changes Cardiovascular : No Chest Pain, positive SOB, positive Dyspnea on Exertion, pos Edema Respiratory : positive Cough, No Sputum, positive Wheezing, Gastrointestinal : No Nausea, No Vomiting, No Diarrhea, No abdominal Pain Genitourinary : No Dysuria, No Hematuria Musculoskeletal : No joint pain, No Myalgias Skin : No rash Neuro : No Weakness, No Numbness, No Headache Psych : No anxiety, depression All other systems reviewed and are negative PMFSH Past Medical History Attestation statement: The following information was validated with the patient. Source: old records reviewed Medical History Open wound of lower extremity COPD (chronic obstructive pulmonary disease) Femur fracture Crohn's colitis Immobility Morbid obesity due to excess calories Adopted Femur fracture, right Closed tibia fracture Acute on chronic respiratory failure with hypoxia and hypercapnia Wound of left lower extremity Nonrheumatic mitral (valve) stenosis Acute on chronic right heart failure Paroxysmal atrial fibrillation Dyspnea ALEKSEY treated with BiPAP Hypoventilation associated with obesity Pickwickian syndrome Chronic hypercapnic respiratory failure Opioid use disorder Surgical History Hx of cholecystectomy History of open reduction and internal fixation (ORIF) procedure Status post open reduction and internal fixation (ORIF) of fracture Recent surgical procedure on lower extremity Family History Family History Other Adopted Social History Social History Household Members: Spouse, Family and Children Household Members Other:: , Hoa. Daughter Carolyn, 21. Daughter's Boyfriend, 22. Neice, 21 Housing: House Do you presently have visiting nurse or other home services: No Alcohol intake: former Year quit: 1989 Patient Tobacco Use Status: Former Tobacco user Years Smoked: 25 Smoked in Last 30 Days: No Second Hand Smoke Exposure: No Use of substances other than those prescribed or required for medical reasons: No Advance Directives: Yes Advance Directives on File: Yes Advance Directives Date on File: 12/16/20 Patient : No service: Yes Current occupational status: disabled Physical Exam Vital Signs: Vital Signs: Last Vital Signs Temp 98.0 F 04/03/24 02:00 Pulse 83 04/03/24 02:00 Resp 16 04/03/24 03:36 BP 161/75 H 04/03/24 02:19 Pulse Ox 89 L 04/03/24 02:00 O2 Del Method BiPAP 04/03/24 02:00 O2 Flow Rate 6 04/03/24 02:00 BMI result Body Mass Index 56.1 Appearance: Alert. Oriented X3. Mild acute distress. Eyes: Pupils equal, round and reactive to light. ENT: Pharynx normal. Neck: Normal inspection. Neck supple. CVS: Normal heart rate and rhythm. Pulses normal. Respiratory: Mild respiratory distress - retractions/tachypnea. Breath sounds audible insp and exp wheezes throughout Abdomen: Soft and non-tender. Skin: Skin warm and dry. Normal skin color. Normal skin turgor. Extremities: patching scaling dermatitis both legs, mild erythema both legs mild warmth 1+ pitting symmetric extremity edema. R leg dressing intact lateral side, PICC line noted in place LUE Neuro: Oriented X 3. No motor deficit. No sensory deficit. Medications Administered Discontinued Medications Generic Name Dose Route Start Last Admin Trade Name Freq PRN Reason Stop Dose Admin Albuterol Sulfate 2.5 mg/ 5 mg 04/03/24 01:08 04/03/24 01:16 Albuterol Sulfate 2.5 mg INHALE 04/03/24 01:09 5 mg ONCE ONE Administration Furosemide 20 mg 04/03/24 02:00 04/03/24 02:19 Furosemide 20 Mg/2 Ml Vial IVPUSH 04/03/24 02:01 20 mg ONCE ONE Administration Protocol Ceftriaxone Sodium 1 gm/ 50 mls @ 100 mls/hr 04/03/24 00:56 04/03/24 02:19 Sodium Chloride IV 04/03/24 01:25 Infused ONCE ONE Infusion Methylprednisolone Sodium Succinate 60 mg 04/03/24 00:55 04/03/24 01:37 Methylprednisolone Sod Succ 125 Mg/2 Ml Vial IVPUSH 04/03/24 00:56 60 mg ONCE ONE Administration Medical Decision Making Medical Decision Making MDM Narrative: 64 yo female with PMH of COPD on 3 to 4L NC, leg edema, NSTEMI, PTSD, anxiety, PAF, ALEKSEY on Bipap, opioid use disorder, R lower leg wound s/p chronic wound infection and osteo with L arm PICC getting vanco infusions, here with c/o URI symptoms wheezing and difficulty breathing not responding to home therapy x 2 days after trip at [place]. At this time labs, cultures, lactic acid, CXR, IV steroids, nebs and IV ceftriaxone. Will give neb but also be mindful and likely put her on her home bipap at night. Differential Diagnosis Differential Diagnoses: The differential diagnosis associated with the presentation includes COPD, viral syndrome, CHF, pneumonia Admission/Observation Consideration of admission/observation: Escalation of care including admission/observation considered admit for further work up and management Consult Healthcare Provider Management of the patient was discussed with: Hospitalist messages sent 258am pending admit Lab Data [facility] Lab Attestation statement: I reviewed the patient's lab results. 04/03/24 01:25 04/03/24 01:24 Labs: Lab Results 04/03/24 04/03/24 04/03/24 Range/Units 01:24 01:25 01:31 WBC 9.8 (4.8-10.8) X10*3/uL RBC 3.53 L (4.20-5.50) X10*6/uL Hgb 9.0 L (12.0-16.0) g/dl Hct 31.7 L (37.0-47.0) % MCV 89.8 (80.0-98.0) fL MCH 25.5 L (27.0-33.0) pg MCHC 28.4 L (31.0-35.0) g/dl RDW 15.5 (11.0-16.0) % Plt Count 194 (160-400) X10*3/uL MPV 10.1 (9.4-12.3) fL Immature Gran % (Auto) 0.9 H (0.0-0.4) % Neut % (Auto) 80.6 H (45-73) % Lymph % (Auto) 6.8 L (20-40) % Scott % (Auto) 7.6 (2-11) % Eos % (Auto) 3.5 (0-4) % Baso % (Auto) 0.6 (0-2) % Lymph # (Auto) 0.7 L (1.2-4.9) X10*3/uL Scott # (Auto) 0.7 (0.1-1.2) X10*3/uL Eos # (Auto) 0.3 (0.0-0.4) X10*3/uL Baso # (Auto) 0.1 (0.0-0.2) X10*3/uL Abs Immat Gran (auto) 0.09 H (0.00-0.03) X10*3/uL Absolute Neuts (auto) 7.9 (2.0-8.3) x10*3/uL Absolute Nucleated RBC 0.000 (0.0-0.012) X10*3/uL Nucleated RBC % (auto) 0.0 (0.0-0.2) /100WBC VBG pH 7.35 (7.32-7.43) VBG pCO2 72 mmHg VBG pO2 82 mmHg VBG HCO3 40 H (22-26) mmol/L VBG O2 Saturation 98.0 % VBG Base Excess 12.5 mmol/L Sodium 147 H (135-145) mmol/L Potassium 4.4 (3.3-5.1) mmol/L Chloride 100 (96-108) mmol/L Carbon Dioxide 38 H (22-29) mmol/L Anion Gap 13 (12-20) BUN 21 H (9-16) mg/dL Creatinine 1.08 (0.5-1.4) mg/dL Estim Creat Clear Calc 72.1 Estimated GFR 51 Random Glucose 136 H (60-115) mg/dL Lactic Acid 0.6 (0.5-2.0) mmol/L Calcium 9.4 (8.4-10.2) mg/dL Magnesium 2.5 (1.6-2.6) mg/dL Total Bilirubin 0.4 (0.0-1.0) mg/dL Direct Bilirubin 0.2 (0.0-0.5) mg/dL AST 13 (5-31) U/L ALT 8 (0-31) U/L Alkaline Phosphatase 110 (39-117) U/L Troponin I High Sens 6.0 (<3.5-17.0) ng/L C-Reactive Protein 7.45 H (< or = 0.50) mg/dL B-Natriuretic Peptide 224 H (<100) pg/mL Total Protein 7.5 (6.5-8.0) g/dL Albumin 3.9 (3.5-5.0) g/dL Lipase 11 (8-78) U/L Procalcitonin 0.08 ng/mL Influenza Type A (PCR) NEGATIVE (Negative) Influenza Type B (PCR) NEGATIVE (Negative) RSV RNA Qual (PCR) NEGATIVE (Negative) SARS-CoV-2 RNA (RT-PCR) NEGATIVE (Negative) Independent Interpretation I performed an independent interpretation of an: EKG and Plain X-Ray (congestion) Interpretation: Rate: 89 Rhythm: NSR [place]: normal Normal P waves. Normal FREDO. Normal QRS complex. ST T wave : artifact noted, no ROB qTC: 420 prior studies: no acute ischemia The study has been interpreted contemporaneously by me. . Radiology Impression Discussion of test interpretation with radiology: I have reviewed the radiologist's reading. Independent Historian Clinical information obtained from an independent historian. History obtained from or confirmed by: EMS External Record Review External record reviewed: Inpatient record Discharge Plan Discharge Clinical Impression: Chronic hypoxic respiratory failure COPD (chronic obstructive pulmonary disease) Qualifiers: COPD type: COPD with acute exacerbation Qualified Code(s): J44.1 - Chronic obstructive pulmonary disease with (acute) exacerbation Patient Disposition: Admitted As Inpatient Print Language: Lao
[2024-04-03] MEDS: Albuterol Sulfate 2.5 MG, Albuterol Sulfate (0.083%) 2.5 MG 5 MG INHALE (01:16)
[2024-04-03 01:30] LABS: MANUAL DIFF FLAG NO
[2024-04-03 01:30] LABS: Venous Blood Gas Refer to POC result
[2024-04-03 01:31] LABS: Basophils Absolute Auto 0.1 X10*3/uL (0.0-0.2); Basophils Percent Auto 0.6 % (0-2); Eosinophils Absolute Auto 0.3 X10*3/uL (0.0-0.4); Eosinophils Percent Auto 3.5 % (0-4); Hematocrit 31.7 % (37.0-47.0); Imm Gran Abs Auto 0.09 X10*3/uL (0.00-0.03); Imm Gran Pct Auto 0.9 % (0.0-0.4); Lymphocytes Absolute Auto 0.7 X10*3/uL (1.2-4.9); Lymphocytes Percent Auto 6.8 % (20-40); Mean Corpuscular HGB Conc 28.4 g/dl (31.0-35.0); Mean Corpuscular Hemoglobin 25.5 pg (27.0-33.0); Mean Corpuscular Volume 89.8 fL (80.0-98.0); Mean Platelet Volume 10.1 fL (9.4-12.3); Monocytes Absolute Auto 0.7 X10*3/uL (0.1-1.2); Monocytes Percent Auto 7.6 % (2-11); Neutrophils Absolute Auto 7.9 x10*3/uL (2.0-8.3); Neutrophils Percent Auto 80.6 % (45-73); Platelet Count 194 X10*3/uL (160-400); Red Blood Count 3.53 X10*6/uL (4.20-5.50); Red Cell Distribution Width 15.5 % (11.0-16.0); White Blood Count 9.8 X10*3/uL (4.8-10.8)
[2024-04-03 01:36] LABS: VBG Base Excess 12.5 mmol/L; VBG HCO3 40 mmol/L (22-26); VBG pCO2 72 mmHg; VBG pH 7.35 (7.32-7.43); VBG pO2 82 mmHg
[2024-04-03] MEDS: cefTRIAXone sodium 1 GM in 0.9 % Sodium Chloride 50 ML IV (01:37)
[2024-04-03] MEDS: methylPREDNISolone Sod Succ 125 MG/2 ML VIAL 60 MG IVPUSH (01:37)
[2024-04-03 01:41] LABS: Lactic Acid 0.6 mmol/L (0.5-2.0)
[2024-04-03 01:51] LABS: B Type Natriuretic Peptide 224 pg/mL (<100)
--- NOTE | 2024-04-03 02:01 | PC.NURSE ---
Ok to use PICC line in left arm per Dr. Wiley
[2024-04-03 02:03] LABS: Alanine Aminotransferase 8 U/L (0-31); Albumin Level 3.9 g/dL (3.5-5.0); Anion Gap 13 (12-20); Aspartate Amino Transferase 13 U/L (5-31); Bilirubin Direct 0.2 mg/dL (0.0-0.5); Bilirubin Total 0.4 mg/dL (0.0-1.0); Blood Urea Nitrogen 21 mg/dL (9-16); C Reactive Protein 7.45 mg/dL (< or = 0.50); Calcium 9.4 mg/dL (8.4-10.2); Carbon Dioxide 38 mmol/L (22-29); Chloride 100 mmol/L (96-108); Creatinine Clr Calc Pharmacy 72.1; Estimated Glomerular Filt Rate 51; Glucose Random 136 mg/dL (60-115); Lipase 11 U/L (8-78); Magnesium 2.5 mg/dL (1.6-2.6); Potassium 4.4 mmol/L (3.3-5.1); Sodium 147 mmol/L (135-145); Total Protein 7.5 g/dL (6.5-8.0)
[2024-04-03 02:09] LABS: Influenza A PCR NEGATIVE (Negative); Influenza B PCR NEGATIVE (Negative); Resp Syncy Virus RNA Qual PCR NEGATIVE (Negative); SARS COV2 PCR INHOUSE NEGATIVE (Negative)
[2024-04-03 02:18] LABS: Alkaline Phosphatase 110 U/L (39-117)
[2024-04-03] MEDS: Furosemide 20 MG/2 ML VIAL IVPUSH (02:19)
[2024-04-03 02:30] LABS: Procalcitonin 0.08 ng/mL
--- NOTE | 2024-04-03 06:12 | PM.IMHP ---
History of Present Illness Date of Service: 04/03/24 Chief Complaint: Dyspnea This is a 64-year-old female with pertinent history of diastolic congestive heart failure, ALEKSEY/OHS on nocturnal BiPAP, chronic hypoxic respiratory failure due to COPD, morbid obesity, paroxysmal atrial fibrillation not on anticoagulation, mood disorder, right lower extremity osteomyelitis on vancomycin who presents to the emergency department for evaluation of dyspnea. Patient states she went to [facility] recently with the family and her symptoms began 2 days prior to presentation. She has been having dyspnea which is worse with lying flat. Also has been having wheezing and cough with whitish sputum production. Does have chronic leg edema. No chest pain or palpitations. She denies fever, chills, nausea, vomiting, abdominal pain, changes in urinary or bowel habits. In the emergency department, patient with wheezing despite multiple DuoNeb treatments. She was found to be satting in the 80s on her home oxygen. Also found to have vascular congestion with elevated BNP in the ER Review of Systems Constitutional: Constitutional: Reports fatigue Cardiovascular: Cardiovascular: Reports dyspnea on exertion and Reports orthopnea Respiratory: Respiratory: Reports cough, Reports dyspnea on exertion and Reports wheezing Gastrointestinal: Gastrointestinal: Reports no additional gastrointestinal complaints Genitourinary: Genitourinary: Reports no additional female genitourinary complaints Endocrine: Endocrine: Reports fatigue Allergic/Immunologic: Allergic/Immunologic: Reports wheezing [facility] Medical History Open wound of lower extremity COPD (chronic obstructive pulmonary disease) Femur fracture Crohn's colitis Immobility Morbid obesity due to excess calories Adopted Femur fracture, right Closed tibia fracture Acute on chronic respiratory failure with hypoxia and hypercapnia Wound of left lower extremity Nonrheumatic mitral (valve) stenosis Acute on chronic right heart failure Paroxysmal atrial fibrillation Dyspnea ALEKSEY treated with BiPAP Hypoventilation associated with obesity Pickwickian syndrome Chronic hypercapnic respiratory failure Opioid use disorder Family History Other Adopted Surgical History Hx of cholecystectomy History of open reduction and internal fixation (ORIF) procedure Status post open reduction and internal fixation (ORIF) of fracture Recent surgical procedure on lower extremity Social History Household Members: Spouse, Family and Children Household Members Other:: , Hoa. Daughter Carolyn, 21. Daughter's Boyfriend, 22. Neice, 21 Housing: House Do you presently have visiting nurse or other home services: No Alcohol intake: former Year quit: 1989 Patient Tobacco Use Status: Former Tobacco user Years Smoked: 25 Smoked in Last 30 Days: No Second Hand Smoke Exposure: No Use of substances other than those prescribed or required for medical reasons: No Advance Directives: Yes Advance Directives on File: Yes Advance Directives Date on File: 12/16/20 Patient : No service: Yes Current occupational status: disabled Meds Allergies Allergy/AdvReac Type Severity Reaction Status Date / Time gabapentin Allergy Mild Anxiety Verified 04/03/24 01:03 morphine [MORPHINE] Allergy Unknown ANAPHALAXIS, Verified 04/03/24 01:03 anaphylaxis propofol [From Diprivan] Allergy Anaphylaxis Verified 04/03/24 01:03 Home Medications ?Medication ?Instructions ?Recorded ?Confirmed ?Last Taken ?Type theophylline 400 mg 400 mg PO DAILY 01/18/23 02/08/24 Unknown History capsule,extended release 24 hr (Roque-24) sulfamethoxazole 800 1 tab PO Q12H 03/10/23 02/08/24 Unknown History mg-trimethoprim 160 mg tablet (Bactrim DS) fluticasone fur. 100 mcg-umeclid 1 ea inhalation DAILY 11/15/23 02/08/24 Unknown History 62.5 mcg-vilant 25 mcg inhalat.powder (Trelegy Ellipta) Physical Exam Vital Signs and Narrative: Vital Signs: Last Vital Signs Temp 98.0 F 04/03/24 02:00 Pulse 73 04/03/24 05:33 Resp 24 H 04/03/24 05:33 BP 146/60 H 04/03/24 05:33 Pulse Ox 91 L 04/03/24 05:33 O2 Del Method BiPAP 04/03/24 05:33 O2 Flow Rate 6 04/03/24 02:00 BMI result Body Mass Index 56.1 Middle-aged female lying in bed in mild distress on supplemental oxygen Neck supple, no JVD Regular rate and rhythm, S1-S2 heard Bilateral wheezing appreciated with tachypnea Abdomen soft nontender, no guarding, no rigidity Patient is awake, alert and oriented to self, place, time and person ; no focal motor deficit Psych: Normal mood Bilateral leg edema with stasis dermatitis and pitting edema Results Labs 04/03/24 01:25 04/03/24 01:24 Labs: Laboratory Results - last 24 hr 04/03/24 04/03/24 04/03/24 01:24 01:25 01:31 MCV 89.8 MCH 25.5 L MCHC 28.4 L RDW 15.5 Plt Count 194 MPV 10.1 Immature Gran % (Auto) 0.9 H Neut % (Auto) 80.6 H Lymph % (Auto) 6.8 L Cherry % (Auto) 7.6 Eos % (Auto) 3.5 Baso % (Auto) 0.6 Lymph # (Auto) 0.7 L Cherry # (Auto) 0.7 Eos # (Auto) 0.3 Baso # (Auto) 0.1 Abs Immat Gran (auto) 0.09 H Absolute Neuts (auto) 7.9 Absolute Nucleated RBC 0.000 Nucleated RBC % (auto) 0.0 VBG pH 7.35 VBG pCO2 72 VBG pO2 82 VBG HCO3 40 H VBG O2 Saturation 98.0 VBG Base Excess 12.5 Anion Gap 13 Estim Creat Clear Calc 72.1 Estimated GFR 51 Random Glucose 136 H Lactic Acid 0.6 Calcium 9.4 Magnesium 2.5 Total Bilirubin 0.4 Direct Bilirubin 0.2 AST 13 ALT 8 Alkaline Phosphatase 110 Troponin I High Sens 6.0 C-Reactive Protein 7.45 H B-Natriuretic Peptide 224 H Total Protein 7.5 Albumin 3.9 Lipase 11 Procalcitonin 0.08 Influenza Type A (PCR) NEGATIVE Influenza Type B (PCR) NEGATIVE RSV RNA Qual (PCR) NEGATIVE SARS-CoV-2 RNA (RT-PCR) NEGATIVE Imaging Radiologist's Impressions: Impressions Chest X-Ray 04/03/24 00:55 IMPRESSION: Suspect central vascular congestion without overt edema. Enlarged cardiac silhouette. Electronically signed by: Jason Sands MD 04/03/2024 03:02 AM EDT Assessment and Plan (1) CHF exacerbation: Status: Acute (2) COPD exacerbation: Status: Acute Plan This is a 64-year-old female with pertinent history of diastolic congestive heart failure, ALEKSEY/OHS on nocturnal BiPAP, chronic hypoxic respiratory failure due to COPD, morbid obesity, paroxysmal atrial fibrillation not on anticoagulation, mood disorder who presents to the emergency department for evaluation of dyspnea. #. Acute on chronic hypoxic respiratory failure due to acute exacerbation of COPD and decompensation of congestive heart failure with preserved EF: Will admit patient with supplemental oxygen. Initiating IV diuresis, strict I's and O's and low-salt diet. Also initiating scheduled and p.r.n. DuoNebs, systemic steroids. Azithromycin for pleiotropic effect Continue home inhalers #. Right lower extremity osteomyelitis: Is on IV vancomycin through left arm PICC line #. ALEKSEY/OHS: Continue nocturnal BiPAP #. Morbid obesity: Counseled regarding diet and exercise #. Paroxysmal atrial fibrillation not on anticoagulation: Normal sinus rhythm during admission #. Mood disorder: Continue home mood stabilizers #. Normocytic anemia, chronic Med rec pending DVT prophylaxis: Lovenox Full code Admit as inpatient and will require two night minimum hospital stay for supplemental oxygen, systemic steroids, monitoring of respiratory status, IV diuresis (as above), which is not possible in a lesser acute setting. Quality Stroke Does the patient have a stroke diagnosis?: No VTE Prior VTE?: No VTE Risk Level:: Medical - moderate - high VTE Device Contraindication: Treatment Not Indicated VTE Drug Contraindication: N/A - Med Ordered
--- NOTE | 2024-04-03 06:28 | PC.NURSE ---
bipap mask readjusted by RT. pt tolerated well. pt continues to rest comfortably on bipap in no apparent distress. resting at 92% @ 18/8. otherwise vss and up to date. 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 pt pending admission. plan of care ongoing. call chavez placed within reach.
[2024-04-03] MEDS: Albuterol/Iprat 2.5/0.5MG 3 ML AMPUL.NEB INHALE ×4 (07:21→19:45)
[2024-04-03] MEDS: Azithromycin 500 MG in 0.9 % Sodium Chloride 250 ML 125 MG IV (07:47)
[2024-04-03] MEDS: Enoxaparin Sodium 40 MG/0.4 ML SYRINGE SUBCUT ×2 (07:48→17:43)
[2024-04-03] MEDS: Ketorolac Tromethamine 30 MG/ML VIAL IVPUSH (07:48)
[2024-04-03] MEDS: Pantoprazole Sodium 40 MG/10 ML VIAL IVPUSH (07:55)
[2024-04-03] MEDS: Furosemide 40 MG/4 ML VIAL IVPUSH (09:18)
[2024-04-03] MEDS: predniSONE 20 MG TABLET 40 MG PO (09:19)
--- NOTE | 2024-04-03 09:35 | PHA.MEDREC ---
Addendum entered by Andrea Molina, [facility] 04/03/24 20:12: Patient's family brought in a vancomycin 1500 mg in 300 ml NS that patient infuses q24h over [address] Das was notified. Addendum entered by Sommer Rudolph, [facility] 04/03/24 10:35: reviewed by [facility]. Original Note: Pharmacy Consult ? Medication Reconciliation Pharmacy has completed the medication reconciliation. Confirmed medications with patient. Patient seemed to know what she was on for the most part but stated some were filled at [facility] and was not sure those. She stated she was taking Clonazepam 1mg tabs 1 tab daily with and additional 0.5mg at bedtime PRN for Anxiety, I called [facility] and [facility] pharmacy to see if they had any fill history and [facility] confirmed they do not have anything on file for Cloazepam. I called [facility] on [address] and they confirmed they had a script on file that they filled on 10/19/23 for Clonazepam 0.25mg one daily for 5 days but no history of a 1mg tab being sent or filled for the patient. I left off the med rec since patient and pharmacy that patient confirmed have different claims and message attending to let them know. Patient had Bactrim filled 01/13 for 90 days at [facility] and patient was taking it for a bit but starting getting Potassium Retention and thought it was from that medication and stopped a few weeks . She claimed she had some other medications filled at [facility] recently and they were able to confirm that they filled some medications on 03/20/24. They stated they filled Oxycodone 15mg tabs 1 Q4-6H; patient confirmed she is taking them 1 Q4H PRN pain. They also filled Aspirin 81mg 1 BID, Docusate 100mg 1 BID and Tylenol 325mg 3 tabs TID but patient states they have not been taking the Tylenol 325mg tab at home. The patient claims she is also still taking Theophylline 400mg 1 tab daily, [facility] confirmed they haven't filled that since 08/27, patient claims they still take it daily and fill it at [facility] on [address] Patient was not sure the last time she took her medications before coming into the hospital.
--- NOTE | 2024-04-03 10:39 | PM.EVENT ---
Event Note Date of Service: 04/03/24 Event Note: Seen and evaluated this morning Feels better already, still on BiPAP continue IV lasix, steroids and nebulizers Continue IV Vancomycin Place a doan for retention Time Spent With Patient Time: Total time managing care of this patient today ____ minutes.
[2024-04-03 10:59] LABS: Appearance Urine Clear; Color Urine Yellow; Glucose Urine UA Negative (Negative); Leukocyte Esterase Urine Negative (Negative); Nitrite Urine Negative (Negative); PH 5.5 (5.0-9.0); Specific Gravity - Urine 1.015 (1.005-1.025); UMIC TRIGGER UACC YES; Urine Blood Negative (Negative); Urine Ketones Negative (Negative); Urine Protein 30 (1+) mg/dL (Neg-Trace)
[2024-04-03 11:01] LABS: Bacteria Urine None Seen (None Seen); RBC Urine 0-2 /HPF (0-2); Squamous Epithelial Cell Urine 0-2 /HPF (0-2); WBC Urine 0-5 /HPF (0-5)
[2024-04-03] MEDS: Aspirin Enteric Coated 81 MG TABLET.DR PO ×2 (11:10→22:25)
[2024-04-03] MEDS: Docusate Sodium 100 MG CAPSULE PO ×2 (11:10→22:25)
[2024-04-03] MEDS: oxyCODONE HCl Immed Release 5 MG TABLET 10 MG PO ×2 (11:18→17:42)
--- NOTE | 2024-04-03 11:21 | PC.NURSE ---
this RN re-resumed care of pt at 1100. pt no longer on bipap at this time - pt currently on 4L via NC (baseline) - resting at 97%. no signs of respiratory distress noted. no sob/wob noted. respirations even/unlabored. pt repositioned upright to promote patent airway. doan catheter recently placed by previous RN - secure/intact. 400 mL noted/emptied/document in I&O section. pt currently c/o 05/04 right hip pain s/p recent surgical procedure. prn medication utilized - effectiveness pending. pt also concerned for wound on right hip/requesting to be seen by a crushing machine operator. admitting provider notified/aware. wound care consult placed at this time. pt also now receiving breathing treatment via RT. resting in no apparent distress. family bedside for support. pt waiting for bed assignment. plan of care ongoing. call chavez placed within reach.
--- NOTE | 2024-04-03 13:05 | MHC.CM.PN ---
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
[2024-04-03] MEDS: 0.9 % Sodium Chloride Flush 3 ML SYRINGE IVFLUSH (17:43)
--- NOTE | 2024-04-03 17:45 | PC.NURSE ---
Patient awake and alert. skin pwd, resp even and non labored. speaking in full, clear sentences. reports pain to right leg wound, medicated w/ prn oxycodone. patient reports she needs to have her wound vac in place, patient made aware that wound consult has been placed. This RN received in report that wound is to be addressed by wound care.
--- NOTE | 2024-04-03 19:00 | PC.NURSE ---
Patient awake and alert. skin pwd, resp even and non labored. speaking in full, clear sentences. Patient repositioned and dinner tray given to patient. River patent and draining clear yellow urine.
--- NOTE | 2024-04-03 20:00 | PC.NURSE ---
patients family brought in patients vanco from home, patient states that she recieves the vanco [id number]. no vancomycin noted on med rec, pharmacy made aware
--- NOTE | 2024-04-03 20:48 | PC.NURSE ---
hospitalist made aware that vanco has been added to med rec by pharmacy
--- NOTE | 2024-04-03 21:57 | HE.PHANOTE ---
RE: vanco Patient getting vanco 1500mg Q24H outpatient, got a random level 04/03 that came back at 14.0 mg/L. Entered another 1500mg dose for tonight with another random ordered for 04/04 @2100.
[2024-04-03] MEDS: vancomycin HCL 1,500 MG in 0.9 % Sodium Chloride 500 ML 333.33 MG IV (22:37)
[2024-04-03] MEDS: oxyCODONE HCl Immed Release 15 MG TABLET PO (23:17)
[2024-04-04] VITALS (11 sets, daily range): BP systolic 133–179; BP diastolic 58–87; PULSE 71–86; RESP 18–20; TEMP 36–36.5; O2SAT 94–97; BMI 56.1
--- NOTE | 2024-04-04 00:37 | HO.SKINPHOTO ---
Location: Category: Stage: Length: Width: Depth: cm Location: Category: Stage: Length: Width: Depth: cm Location: Category: Stage: Length: Width: Depth: cm Location: Category: Stage: Length: Width: Depth: cm Location: Category: Stage: Length: Width: Depth: cm Location: Category: Stage: Length: Width: Depth: cm
[2024-04-04] MEDS: Omeprazole 20 MG CAPSULE.DR PO (05:52)
[2024-04-04 05:54] LABS: MANUAL DIFF FLAG NO
[2024-04-04] MEDS: Enoxaparin Sodium 40 MG/0.4 ML SYRINGE SUBCUT (05:54)
[2024-04-04] MEDS: Azithromycin 500 MG in 0.9 % Sodium Chloride 250 ML 125 MG IV (06:01)
[2024-04-04 06:18] LABS: Basophils Percent Auto 0.2 % (0-2); Eosinophils Percent Auto 0.1 % (0-4); Hematocrit 25.5 % (37.0-47.0); Hemoglobin 7.5 g/dl (12.0-16.0); Imm Gran Abs Auto 0.05 X10*3/uL (0.00-0.03); Imm Gran Pct Auto 0.5 % (0.0-0.4); Lymphocytes Absolute Auto 0.5 X10*3/uL (1.2-4.9); Lymphocytes Percent Auto 5.1 % (20-40); Mean Corpuscular HGB Conc 29.4 g/dl (31.0-35.0); Mean Corpuscular Hemoglobin 25.6 pg (27.0-33.0); Mean Platelet Volume 10.3 fL (9.4-12.3); Monocytes Absolute Auto 0.8 X10*3/uL (0.1-1.2); Monocytes Percent Auto 8.6 % (2-11); Neutrophils Absolute Auto 7.8 x10*3/uL (2.0-8.3); Neutrophils Percent Auto 85.5 % (45-73); Platelet Count 171 X10*3/uL (160-400); Red Blood Count 2.93 X10*6/uL (4.20-5.50); Red Cell Distribution Width 15.1 % (11.0-16.0); White Blood Count 9.1 X10*3/uL (4.8-10.8)
[2024-04-04 06:23] LABS: Anion Gap 9 (12-20); Blood Urea Nitrogen 23 mg/dL (9-16); Calcium 8.5 mg/dL (8.4-10.2); Carbon Dioxide 41 mmol/L (22-29); Chloride 99 mmol/L (96-108); Creatinine Clr Calc Pharmacy 77.1; Estimated Glomerular Filt Rate 55; Glucose Random 102 mg/dL (60-115); Potassium 4.3 mmol/L (3.3-5.1); Sodium 145 mmol/L (135-145)
[2024-04-04] MEDS: oxyCODONE HCl Immed Release 15 MG TABLET PO ×4 (06:24→22:39)
[2024-04-04] MEDS: Albuterol/Iprat 2.5/0.5MG 3 ML AMPUL.NEB INHALE ×4 (08:14→19:41)
[2024-04-04] MEDS: acetaZOLAMIDE sodium 500 MG VIAL 250 MG IVPUSH (08:45)
[2024-04-04] MEDS: predniSONE 20 MG TABLET 40 MG PO (08:45)
[2024-04-04] MEDS: Theophylline Anhydrous ER 400 MG TAB.ER.24H PO (08:46)
[2024-04-04] MEDS: Aspirin Enteric Coated 81 MG TABLET.DR PO ×2 (08:46→20:09)
[2024-04-04] MEDS: 0.9 % Sodium Chloride Flush 3 ML SYRINGE IVFLUSH (08:46)
--- NOTE | 2024-04-04 09:33 | MHC.CM.PN ---
Addendum entered by Janette Alejandra RN 04/04/24 13:34: PT rec home w/ services vs STR. CM discussed w/ patient who prefers home w/ resump of services. States her [employer] can work an extra 10-20 hrs/wk if needed. Also spoke with [facility] who will fax over an order form to be signed by MD to restart abx on dc. Of note, patient is on 3-4L O2 @ baseline, 6L @ night. Supplied by [facility]. Addendum entered by Janette Alejandra RN 04/04/24 10:46: Rec'd call from Farrah Transition Coordinator @ [facility]. Per Farrah, patient is active for SN services including wound vac 3x/wk, lab draw (vanco trough) and PICC dressing change 1x/wk. Patient is receiving IV vanco 1500 mg daily through [facility]. Return referral sent via [facility]. Farrah is requesting a call w/ updated orders prior to dc. [phone]. PT eval pending. Original Note: CM met with patient at bedside. Patient reports she ambulates w/ a wheeled walker. [facility] States she sees a PCP @ [facility], but would like to [facility]. [facility] brochure provided. DC plan remains home, resume VNA and [employer] services.
--- NOTE | 2024-04-04 10:23 | P.PNIM_ITS ---
Subjective Subjective Date of Service: 04/04/24 Interval History: seen and evaluated this morning feels better overall still reporting dyspnea Hb dropped to 7.5 , no bleeding reported no other overnight events Review of Systems Review of Systems: Yes all other systems are reviewed and are negative Physical Exam 2 Vital Signs: Vital Signs: Last Vital Signs Temp 96.8 F 04/04/24 08:00 Pulse 72 04/04/24 08:17 Resp 18 04/04/24 08:17 BP 148/70 H 04/04/24 08:00 Pulse Ox 94 04/04/24 08:00 O2 Del Method Nasal Cannula 04/04/24 08:00 O2 Flow Rate 4 04/04/24 08:00 BMI result Body Mass Index 56.1 Const: Other: Constitutional : Awake, interactive, morbidly obese, not in distress Neck : Normal inspection, Supple Cardiovascular : RRR, no JVP, trace bilateral lower extremity edema Respiratory : fair bilateral air entry, no crackles, expiratory wheezes Gastrointestinal: soft, lax, Normal bowel sounds, Non tender Skin : Warm, Dry skin mainly LE with chronic changes Neurological : Alert & oriented x3, No focal deficit Objective Data Active Medications Acetaminophen (Acetaminophen 325 Mg Tablet) 650 mg PO Q6H PRN PRN Reason: Pain, Mild (Pain Scale 1-3), fever or headache Albuterol/Ipratropium (Albuterol/Iprat 2.5/0.5mg 3 Ml Ampul.Neb) 3 ml INHALE Q4H PRN PRN Reason: Wheezing Albuterol/Ipratropium (Albuterol/Iprat 2.5/0.5mg 3 Ml Ampul.Neb) 3 ml INHALE RQ4H WHILE AWAKE [facility] Last Admin: 04/04/24 08:14 Dose: 3 ml Documented By: ANUSHA Aspirin (Aspirin Enteric Coated 81 Mg Tablet.Dr) 81 mg PO BID [facility] Last Admin: 04/04/24 08:46 Dose: 81 mg Documented By: CONOR Calcium Carbonate (Calcium Carbonate 750 Mg Tab.Chew) 750 mg PO Q4H PRN PRN Reason: Heartburn Clonazepam (Clonazepam 0.125 Mg Tab.Rapdis) 0.25 mg PO TID PRN PRN Reason: anxiety/restlessness Last Admin: 04/04/24 09:04 Dose: 0.25 mg Documented By: CONOR Docusate Sodium (Docusate Sodium 100 Mg Capsule) 100 mg PO BID [facility] Last Admin: 04/04/24 08:56 Dose: Not Given Documented By: CONOR Non-Admin Reason: Patient Refused Enoxaparin Sodium (Enoxaparin Sodium 40 Mg/0.4 Ml Syringe) 40 mg SUBCUT Q12H [facility] Last Admin: 04/04/24 05:54 Dose: 40 mg Documented By: LISE Fluticasone/Umeclidinium/Vilanterol (Fluticasone/Umeclidinium/Vilanterol 100/62.5/25 Blst.W.Dev) 1 puff INHALE RDAILY [facility] Last Admin: 04/03/24 10:54 Dose: Not Given Documented By: JEAN-PAUL Non-Admin Reason: pharmacy to bring down med Azithromycin 500 mg/ Sodium (Chloride) 250 mls @ 125 mls/hr IV Q24H [facility] Last Infusion: 04/04/24 08:54 Dose: Infused Documented By: CONOR Vancomycin HCl 1,500 mg/ (Sodium Chloride) 500 mls @ 333.333 mls/hr IV Q24H [facility] Last Infusion: 04/04/24 00:27 Dose: Infused Documented By: LISE Magnesium Hydroxide (Milk Of Magnesia 30 Ml Oral.Susp) 30 ml PO DAILY PRN PRN Reason: Constipation Melatonin (Melatonin 3 Mg Tablet) 6 mg PO BEDTIME PRN PRN Reason: Insomnia Omeprazole (Omeprazole 20 Mg Capsule.Dr) 20 mg PO DAILY@0630 [facility] Last Admin: 04/04/24 05:52 Dose: 20 mg Documented By: LISE Ondansetron HCl (Ondansetron Hcl 4 Mg/2 Ml Vial) 4 mg IVPUSH Q8H PRN PRN Reason: Nausea and Vomiting Oxycodone HCl (Oxycodone Hcl Immed Release 15 Mg Tablet) 15 mg PO Q4H PRN PRN Reason: Pain, Moderate(Pain Scale 4-6) Last Admin: 04/04/24 06:24 Dose: 15 mg Documented By: LISE Comments: per pt requested Pantoprazole Sodium (Pantoprazole Sodium 40 Mg/10 Ml Vial) 40 mg IVPUSH DAILY@0630 [facility] Last Admin: 04/04/24 05:54 Dose: Not Given Documented By: LISE Non-Admin Reason: Patient Refused Pharmacy Consult (Consult Rx Vancomycin Dosing) 1 each MISCELLANE DAILY PRN PRN Reason: Consult order Prednisone (Prednisone 20 Mg Tablet) 40 mg PO DAILY [facility] Last Admin: 04/04/24 08:45 Dose: 40 mg Documented By: CONOR Sodium Chloride (0.9 % Sodium Chloride Flush 3 Ml Syringe) 3 ml IVFLUSH QSHIFT [facility] Last Admin: 04/04/24 08:46 Dose: 3 ml Documented By: CONOR Theophylline (Theophylline Anhydrous Er 400 Mg Tab.Er.24h) 400 mg PO DAILY [facility] Last Admin: 04/04/24 08:46 Dose: 400 mg Documented By: CONOR Labs 04/04/24 05:22 04/04/24 05:22 Labs: Laboratory Results - last 24 hr 04/03/24 04/03/24 04/04/24 10:51 21:30 05:22 MCV 87.0 MCH 25.6 L MCHC 29.4 L RDW 15.1 Plt Count 171 MPV 10.3 Immature Gran % (Auto) 0.5 H Neut % (Auto) 85.5 H Lymph % (Auto) 5.1 L [place] % (Auto) 8.6 Eos % (Auto) 0.1 Baso % (Auto) 0.2 Lymph # (Auto) 0.5 L [place] # (Auto) 0.8 Eos # (Auto) 0.0 Baso # (Auto) 0.0 Abs Immat Gran (auto) 0.05 H Absolute Neuts (auto) 7.8 Absolute Nucleated RBC 0.000 Nucleated RBC % (auto) 0.0 Anion Gap 9 L Estim Creat Clear Calc 77.1 Estimated GFR 55 Random Glucose 102 Calcium 8.5 D Urine Color Yellow Urine Appearance Clear Urine pH 5.5 Ur Specific [place] 1.015 Urine Protein 30 (1+) H Urine Glucose (UA) Negative Urine Ketones Negative Urine Blood Negative Urine Nitrite Negative Ur Leukocyte Esterase Negative Urine RBC 0-2 Urine WBC 0-5 Ur Squamous Epith Cells 0-2 Urine Bacteria None Seen Hyaline Casts 3-5 Random Vancomycin 14.0 L Microbiology Microbiology Results: Microbiology 04/03/24 01:23 Blood Culture - Preliminary Blood - Venous No growth after 24 hours. 04/03/24 01:23 Blood Culture - Preliminary Blood - Venous No growth after 24 hours. Assessment and Plan (1) COPD exacerbation: Status: Acute (2) CHF exacerbation: Status: Acute (3) Chronic hypoxic respiratory failure: Status: Acute Plan This is a 64-year-old female with pertinent history of diastolic congestive heart failure, ALEKSEY/OHS on nocturnal BiPAP, chronic hypoxic respiratory failure due to COPD, morbid obesity, paroxysmal atrial fibrillation not on anticoagulation, mood disorder who presents to the emergency department for evaluation of dyspnea. # Acute on chronic hypoxic respiratory failure due to acute exacerbation of COPD and decompensation of congestive heart failure with preserved EF Continue IV diuresis, strict I's and O's and low-salt diet Continue scheduled and p.r.n. DuoNebs Continue systemic steroids. PO Azithromycin Continue home inhalers # Acute on chronic anemia no clear blood loss, check occult recheck CBC , iron stores Transfuse 1 unit PRBCs if Hb remains below 8 # Right lower extremity osteomyelitis on IV vancomycin through left arm PICC line pharamcy following Vanco trough # ALEKSEY/OHS: Continue nocturnal BiPAP # Morbid obesity: Counseled regarding diet and exercise # Paroxysmal atrial fibrillation not on anticoagulation: Normal sinus rhythm during admission # Mood disorder: Continue home mood stabilizers # Normocytic anemia, chronic DVT prophylaxis: Lovenox Admit as inpatient and will require overnight hospital stay for supplemental oxygen, systemic steroids, monitoring of respiratory status, IV diuresis (as above), which is not possible in a lesser acute setting. Quality Stroke Does the patient have a stroke diagnosis?: No VTE Prior VTE?: No VTE Risk Level:: Medical - moderate - high VTE Device Contraindication: Treatment Not Indicated VTE Drug Contraindication: N/A - Med Ordered
[2024-04-04] MEDS: Furosemide 20 MG/2 ML VIAL IVPUSH (11:29)
[2024-04-04 11:51] LABS: Iron 62 mcg/dL (30-160); Percent Iron Saturation 27 % (15-50); Total Iron Binding Capacity 227 mcg/dL (228-428); Unsaturated Iron Binding 165 ug/dL
--- NOTE | 2024-04-04 14:37 | PC.NURSE ---
River removed at 1430. Device intact. Patient tolerated well. Due to void by 2029. Patient aware- verbalized understanding.
--- NOTE | 2024-04-04 15:33 | HO.WOUND ---
Wound Consult: Initial 64yr old? female admitted to [facility] on 04/03/24 - See progress notes and H&P for detailed history.? Wound consult placed for Right Lateral Leg wound.? Patient agreeable to assessment and photo documentation.? Patient has complex medical history see H&P for details. 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 She reports she is under active treatment with Dr. Mills from [facility] and that she recently performed debridement and wound vac application. The patient reports she was on vacation lost suction and called her VNA nurse. Apparently VNA nurse advised her to remove wound vac and packing cover with wet to dry dressing and she would follow up with her on Wednesday - unfortunately patient was admitted to [facility] on 04/03/24. The wound bed currently has 75% yellow slough adherent to wound bed and is not currently appropriate for a wound vac placement. No Black or white sponge noted in wound bed. ther eis a smal 1cm tunnel at 6 o'clock but back of wound bed probed and no packing noted to the best of my assessment. Of note the patients wound is managed by an outside surgeon and with wound vac (Medla) we do not carry at [facility]. The patient was advised to allow use to pack the wound bed to manage the moisture and allow for autolytic debridement. Dr. Das notified patient is requesting surgical consult. Explained to patient no active s/s of infection to the wound bed and it is unlikely surgeon here will perform debridement - advised patient to allow Durafiber AG packing and outpt follow up with Dr. Mills at time of d/c. Patient was agreeable to topical plan but request surgical assessment as well - Dr. Das notified. Right Lateral Thigh Etiology: ??S/P Surgical Incision and Wound vac placement Measurements: 4cm x 0.5 cm x max depth of 5cm Wound Bed: 75% adherent yellow slough - pink pale moist wound bed Drainage / Odor: none noted Edges: ? Unattached but well defined Jossie wound: Intact scar tissue noted - healed incision noted - ? No Induration, Fluctuance or Warmth noted Pain: tenderness reports when assessed and packed Goals of Treatment: ? Durafiber AG to allow for enhanced autolytic debridement Recommendations: 1. Turn and Reposition every 2 hours and as needed for patient comfort.? Use pillows or wedges to support off loading positions. 2. Off Load all bony prominences with use of pillows and heel boots if needed.? Apply Preventative foams where needed. ? 3. Monitor for incontinence and moisture control, use barrier creams when needed for prevention and treatment. 4. Provide adequate and supplemental nutrition.? 5. When applicable maintain blood glucose levels per Providers order. 6. Right Lateral Thigh - Cleanse and irrigate with NS, Pat dry.? Apply barrier to periwound, lightly pack with Durafiber AG, be sure to leave a wick to easy removal.? Cover with Foam dressing.? Change every other day. Patient should continue out patient follow up with her VNA service and L[facility] Hassan for continue treatment. Re-consult wound care Nurse for wound deterioration or wound changes.
[2024-04-04 15:42] LABS: Hematocrit 27.9 % (37.0-47.0); Hemoglobin 8.6 g/dl (12.0-16.0); Mean Corpuscular HGB Conc 30.8 g/dl (31.0-35.0); Mean Corpuscular Hemoglobin 26.3 pg (27.0-33.0); Mean Corpuscular Volume 85.3 fL (80.0-98.0); Mean Platelet Volume 10.6 fL (9.4-12.3); NRBC Pct Auto 0.3 /100WBC (0.0-0.2); Platelet Count 195 X10*3/uL (160-400); Red Blood Count 3.27 X10*6/uL (4.20-5.50); Red Cell Distribution Width 15.2 % (11.0-16.0); White Blood Count 9.5 X10*3/uL (4.8-10.8)
--- NOTE | 2024-04-04 15:59 | P.CDIM_ITS ---
PROVIDER RESPONSE TEXT: To clarify, the appropriate diagnosis supported by the clinical indicators: Subacute osteomyelitis QUERY TEXT: PHYSICIAN'S DOCUMENTATION REQUEST Date of Query: 04/04/2024 05:49 AM EDT Patient Name: Brianne Chaudhary Admit Date: 04/03/2024 Dear Jarret Das MD, A review of the medical record indicates additional documentation may be needed. Please review below and update the documentation accordingly Clinical Indicators: Progress notes: Right lower extremity osteomyelitis IV Vanco through left arm PICC line. Based on the above, please clarify in the Progress Notes further specificity regarding the acuity of the Osteomyelitis. Acute osteomyelitis right lower extremity Subacute osteomyelitis Chronic osteomyelitis Acute on chronic osteomyelitis Other (explain) Clinically unable to determine (explain) Thank you, Teresa Martinez, CCS, CDIS Use of terms such as suspected, likely, concern for, or probable (associated with a specific diagnosi s that is being evaluated, monitored, or treated as if it exists) are acceptable and can be coded in the inpatient se tting, when documented at the time of discharge. Please use your independent medical judgment in providing your response. THIS QUERY IS PART OF THE PERMANENT MEDICAL RECORD
--- NOTE | 2024-04-04 17:49 | PC.NURSE ---
Patient voided for approximately 200mL at 1530.
[2024-04-04 18:33] LABS: OBS Int Ctl Valid YES; OBS1 NEGATIVE (NEGATIVE)
[2024-04-04] MEDS: Docusate Sodium 100 MG CAPSULE PO (20:09)
[2024-04-04 21:43] LABS: Vancomycin Random 17.9 mcg/mL (15-20)
--- NOTE | 2024-04-04 22:10 | HE.PHANOTE ---
RE: VANCO DOSING Random came back as 17.9. Continue with home dose of 1500 mg q24h for one more dose, may need to decrease tomorrow. Next random is scheduled for 04/05/24 @2100.
[2024-04-04] MEDS: vancomycin HCL 1,500 MG in 0.9 % Sodium Chloride 500 ML 333.33 MG IV (23:48)
[2024-04-05 03:21] VITALS: BP 128/60; PULSE 66; RESP 18; TEMP 36.6; O2SAT 96
[2024-04-05] MEDS: Pantoprazole Sodium 40 MG/10 ML VIAL IVPUSH (06:10)
[2024-04-05] MEDS: Omeprazole 20 MG CAPSULE.DR PO (06:12)
[2024-04-05 07:12] LABS: Anion Gap 12 (12-20); Blood Urea Nitrogen 34 mg/dL (9-16); Calcium 8.4 mg/dL (8.4-10.2); Carbon Dioxide 36 mmol/L (22-29); Chloride 101 mmol/L (96-108); Creatinine Clr Calc Pharmacy 64.3; Estimated Glomerular Filt Rate 45; Glucose Random 135 mg/dL (60-115); Potassium 4.2 mmol/L (3.3-5.1); Sodium 145 mmol/L (135-145)
--- NOTE | 2024-04-05 07:13 | PC.NURSE ---
Late entry: Pt's PICC line dressing changed at 06:05 04/05/24, pt tolerated it well.
[2024-04-05 07:19] LABS: B Type Natriuretic Peptide 173 pg/mL (<100)
[2024-04-05 07:40] VITALS: BP 143/63; PULSE 58; RESP 18; TEMP 36.1; O2SAT 98
[2024-04-05] MEDS: Furosemide 20 MG/2 ML VIAL IVPUSH (08:37)
[2024-04-05] MEDS: predniSONE 20 MG TABLET 40 MG PO (08:38)
[2024-04-05] MEDS: Aspirin Enteric Coated 81 MG TABLET.DR PO (08:38)
[2024-04-05] MEDS: oxyCODONE HCl Immed Release 15 MG TABLET PO ×2 (08:39→14:25)
[2024-04-05] MEDS: Docusate Sodium 100 MG CAPSULE PO (08:39)
[2024-04-05] MEDS: Azithromycin 500 MG TABLET PO (08:39)
[2024-04-05] MEDS: Theophylline Anhydrous ER 400 MG TAB.ER.24H PO (08:39)
[2024-04-05] MEDS: 0.9 % Sodium Chloride Flush 3 ML SYRINGE IVFLUSH (08:40)
[2024-04-05 08:42] VITALS: BP 143/63; PULSE 58; O2SAT 98
--- NOTE | 2024-04-05 09:43 | P.PNIM_ITS ---
Subjective Subjective Date of Service: 04/05/24 Interval History: overall improved, still sob on exertion Physical Exam 2 Vital Signs: Vital Signs: Last Vital Signs Temp 97.0 F 04/05/24 07:40 Pulse 58 04/05/24 08:42 Resp 18 04/05/24 07:40 BP 143/63 H 04/05/24 08:42 Pulse Ox 98 04/05/24 08:42 O2 Del Method BiPAP 04/05/24 07:40 O2 Flow Rate 4 04/04/24 19:07 BMI result Body Mass Index 56.1 Const: Other: Constitutional : Awake, interactive, morbidly obese, not in distress Neck : Normal inspection, Supple Cardiovascular : RRR, no JVP, trace bilateral lower extremity edema Respiratory : fair bilateral air entry, no crackles, expiratory wheezes Gastrointestinal: soft, lax, Normal bowel sounds, Non tender Skin : Warm, Dry skin mainly LE with chronic changes Neurological : Alert & oriented x3, No focal deficit Objective Data Active Medications Acetaminophen (Acetaminophen 325 Mg Tablet) 650 mg PO Q6H PRN PRN Reason: Pain, Mild (Pain Scale 1-3), fever or headache Albuterol/Ipratropium (Albuterol/Iprat 2.5/0.5mg 3 Ml Ampul.Neb) 3 ml INHALE Q4H PRN PRN Reason: Wheezing Albuterol/Ipratropium (Albuterol/Iprat 2.5/0.5mg 3 Ml Ampul.Neb) 3 ml INHALE RQ4H WHILE AWAKE [facility] Last Admin: 04/05/24 07:13 Dose: Not Given Documented By: JEAN-PAUL Non-Admin Reason: Patient Asleep Aspirin (Aspirin Enteric Coated 81 Mg Tablet.) 81 mg PO BID [facility] Last Admin: 04/05/24 08:38 Dose: 81 mg Documented By: CONOR Azithromycin (Azithromycin 500 Mg Tablet) 500 mg PO Q24H [facility] Last Admin: 04/05/24 08:39 Dose: 500 mg Documented By: CONOR Calcium Carbonate (Calcium Carbonate 750 Mg Tab.Chew) 750 mg PO Q4H PRN PRN Reason: Heartburn Clonazepam (Clonazepam 0.125 Mg Tab.Rapdis) 0.25 mg PO TID PRN PRN Reason: anxiety/restlessness Last Admin: 04/04/24 09:04 Dose: 0.25 mg Documented By: CONOR Docusate Sodium (Docusate Sodium 100 Mg Capsule) 100 mg PO BID [facility] Last Admin: 04/05/24 08:39 Dose: 100 mg Documented By: CONOR Enoxaparin Sodium (Enoxaparin Sodium 40 Mg/0.4 Ml Syringe) 40 mg SUBCUT Q12H [facility] Last Admin: 04/04/24 05:54 Dose: 40 mg Documented By: LISE Fluticasone/Umeclidinium/Vilanterol (Fluticasone/Umeclidinium/Vilanterol 100/62.5/25 Blst.W.Dev) 1 puff INHALE RDAILY [facility] Last Admin: 04/05/24 07:13 Dose: Not Given Documented By: JEAN-PAUL Non-Admin Reason: Patient Asleep Furosemide (Furosemide 20 Mg/2 Ml Vial) 20 mg IVPUSH DAILY [facility]; Protocol Last Admin: 04/05/24 08:37 Dose: 20 mg Documented By: CONOR Vancomycin HCl 1,500 mg/ (Sodium Chloride) 500 mls @ 333.333 mls/hr IV Q24H [facility] Last Infusion: 04/05/24 01:20 Dose: Infused Documented By: LISE Magnesium Hydroxide (Milk Of Magnesia 30 Ml Oral.Susp) 30 ml PO DAILY PRN PRN Reason: Constipation Melatonin (Melatonin 3 Mg Tablet) 6 mg PO BEDTIME PRN PRN Reason: Insomnia Omeprazole (Omeprazole 20 Mg Capsule.Dr) 20 mg PO DAILY@0630 [facility] Last Admin: 04/05/24 06:12 Dose: 20 mg Documented By: LISE Ondansetron HCl (Ondansetron Hcl 4 Mg/2 Ml Vial) 4 mg IVPUSH Q8H PRN PRN Reason: Nausea and Vomiting Oxycodone HCl (Oxycodone Hcl Immed Release 15 Mg Tablet) 15 mg PO Q4H PRN PRN Reason: Pain, Moderate(Pain Scale 4-6) Last Admin: 04/05/24 08:39 Dose: 15 mg Documented By: CONOR Pantoprazole Sodium (Pantoprazole Sodium 40 Mg/10 Ml Vial) 40 mg IVPUSH DAILY@0630 [facility] Last Admin: 04/05/24 06:10 Dose: 40 mg Documented By: LISE Pharmacy Consult (Consult Rx Vancomycin Dosing) 1 each MISCELLANE DAILY PRN PRN Reason: Consult order Prednisone (Prednisone 20 Mg Tablet) 40 mg PO DAILY [facility] Last Admin: 04/05/24 08:38 Dose: 40 mg Documented By: CONOR Sodium Chloride (0.9 % Sodium Chloride Flush 3 Ml Syringe) 3 ml IVFLUSH QSHIFT [facility] Last Admin: 04/05/24 08:40 Dose: 3 ml Documented By: CONOR Theophylline (Theophylline Anhydrous Er 400 Mg Tab.Er.24h) 400 mg PO DAILY [facility] Last Admin: 04/05/24 08:39 Dose: 400 mg Documented By: OCNOR Labs 04/04/24 15:25 04/05/24 05:42 Labs: Laboratory Results - last 24 hr 04/04/24 04/04/24 04/04/24 05:22 15:25 18:00 MCV 85.3 MCH 26.3 L MCHC 30.8 L RDW 15.2 Plt Count 195 MPV 10.6 Absolute Nucleated RBC 0.030 H Nucleated RBC % (auto) 0.3 H Anion Gap 9 L Estim Creat Clear Calc 77.1 Estimated GFR 55 Random Glucose 102 Calcium 8.5 D Iron 62 TIBC 227 L % Saturation 27 Unsat Iron Binding 165 B-Natriuretic Peptide Stool Occult Blood NEGATIVE Random Vancomycin 04/04/24 04/05/24 21:03 05:42 MCV MCH MCHC RDW Plt Count MPV Absolute Nucleated RBC Nucleated RBC % (auto) Anion Gap 12 Estim Creat Clear Calc 64.3 Estimated GFR 45 Random Glucose 135 H Calcium 8.4 Iron TIBC % Saturation Unsat Iron Binding B-Natriuretic Peptide 173 H Stool Occult Blood Random Vancomycin 17.9 Microbiology Microbiology Results: Microbiology 04/03/24 01:23 Blood Culture - Preliminary Blood - Venous No growth after 48 hours. 04/03/24 01:23 Blood Culture - Preliminary Blood - Venous No growth after 48 hours. Assessment and Plan (1) COPD exacerbation: Status: Acute (2) CHF exacerbation: Status: Acute (3) Chronic hypoxic respiratory failure: Status: Acute Plan 64F PMH chronic diastolic congestive heart failure, ALEKSEY/OHS on nocturnal BiPAP, chronic hypoxic respiratory failure due to COPD on 3L home o2, morbid obesity, paroxysmal atrial fibrillation not on anticoagulation, mood disorder who presented to the emergency department for evaluation of dyspnea. Acute on chronic hypoxic respiratory failure due to acute exacerbation of COPD and decompensation of congestive heart failure with preserved EF Continue IV diuresis, strict I's and O's and low-salt diet Continue scheduled and p.r.n. DuoNebs Continue systemic steroids. PO Azithromycin Continue home inhalers Acute on chronic anemia no clear blood loss, check occult inflammatory/dilutional hgb improved Right lower extremity osteomyelitis on IV vancomycin through left arm PICC line pharamcy following Vanco trough ALEKSEY/OHS Continue nocturnal BiPAP Morbid obesity Counseled regarding diet and exercise Paroxysmal atrial fibrillation not on anticoagulation Normal sinus rhythm during admission DVT prophylaxis: Lovenox reason for continued hospitalization:sob Quality Stroke Does the patient have a stroke diagnosis?: No VTE Prior VTE?: No VTE Risk Level:: Medical - moderate - high VTE Device Contraindication: Treatment Not Indicated VTE Drug Contraindication: N/A - Med Ordered
[2024-04-05 11:15] VITALS: PULSE 58; RESP 18; O2SAT 93
[2024-04-05] MEDS: Albuterol/Iprat 2.5/0.5MG 3 ML AMPUL.NEB INHALE ×2 (11:15→15:48)
--- NOTE | 2024-04-05 12:15 | MHC.CM.PN ---
Per MD rounds patient not medically cleared for dc. Potentially later today. [facility] and [facility] aware of potential dc. NEpm cut off for abx delivery. If decision is made to dc after 1pm patient will need dose of vanco prior to dc. MD aware. Both [facility] and [facility] will be updated if patient dc's today. CM will continue to follow.
[2024-04-05 15:32] VITALS: BP 138/73; PULSE 71; RESP 20; TEMP 36.6; O2SAT 97
--- NOTE | 2024-04-05 15:33 | P.DS_ITS ---
DS: Providers Provider Date of Service: 04/05/24 Date of admission: 04/03/24 06:18 Date of discharge: 04/05/24 Primary care physician: Unknown Physician Consults: 04/03/24 12:55 Consult to Wound Care Routine Reason for consultation: evaluation of hip wound 04/04/24 02:28 Consult to Wound Care Routine Reason for consultation: wound to R leg & skin fungus under abd folds 04/04/24 14:34 Consult to General Surgery Routine Consulting Provider: [facility] [place] General Surgeons Reason for consultation: open wound, eval for wound vac ? DS: Diagnosis Discharge Diagnosis (1) COPD exacerbation: Status: Acute (2) CHF exacerbation: Status: Acute (3) Chronic hypoxic respiratory failure: Status: Acute DS: Summary Hospital Course Hospital Course: from initial hpi: 64-year-old female with pertinent history of diastolic congestive heart failure, ALEKSEY/OHS on nocturnal BiPAP, chronic hypoxic respiratory failure due to COPD, morbid obesity, paroxysmal atrial fibrillation not on anticoagulation, mood disorder, right lower extremity osteomyelitis on vancomycin who presents to the emergency department for evaluation of dyspnea. Patient states she went to [facility] recently with the family and her symptoms began 2 days prior to presentation. She has been having dyspnea which is worse with lying flat. Also has been having wheezing and cough with whitish sputum production. Does have chronic leg edema. No chest pain or palpitations. She denies fever, chills, nausea, vomiting, abdominal pain, changes in urinary or bowel habits. In the emergency department, patient with wheezing despite multiple DuoNeb treatments. She was found to be satting in the 80s on her home oxygen. Also found to have vascular congestion with elevated BNP in the ER hospital course: Patient was admitted for acute on chronic hypoxic respiratory failure due to COPD with acute decompensation and acute on chronic diastolic CHF. She was treated with IV Lasix, systemic steroids, azithromycin, bronchodilators. Shortness of breath improved and she is now back to her baseline 3 L home O2, on discharge will continue 5 more days of prednisone azithromycin and has been started on maintenance Lasix 20 mg daily. Patient was noted to have acute on chronic anemia but no clear blood loss, this was likely inflammatory/dilutional and hemoglobin improved. For right lower extremity wound and osteomyelitis she was continued on her IV vancomycin. She was seen by General surgery who recommended wound VAC be reapplied as outpatient. For ALEKSEY/ohs was continued on nocturnal BiPAP. For morbid obesity weight loss recommended. For paroxysmal atrial fibrillation patient was in normal sinus rhythm and is not on anti coagulation. Patient is feeling better will be discharged home. Time Attestation Discharge Coordination Time (in mins): 37 Quality: Safe Use of Opioids Does Pt have an Active Cancer Diagnosis on the Problem List?: No Quality: Stroke Does the patient have a stroke diagnosis?: No Physical Exam Vital Signs: Vital Signs: Last Vital Signs Temp 97.0 F 04/05/24 07:40 Pulse 58 04/05/24 11:15 Resp 18 04/05/24 11:15 BP 143/63 H 04/05/24 08:42 Pulse Ox 98 04/05/24 08:42 O2 Del Method BiPAP 04/05/24 07:40 O2 Flow Rate 4 04/04/24 19:07 BMI result Body Mass Index 56.1 Const: Other: Constitutional : Awake, interactive, morbidly obese, not in distress Neck : Normal inspection, Supple Cardiovascular : RRR, no JVP, trace bilateral lower extremity edema Respiratory : fair bilateral air entry, no crackles, expiratory wheezes Gastrointestinal: soft, lax, Normal bowel sounds, Non tender Skin : Warm, Dry skin mainly LE with chronic changes Neurological : Alert & oriented x3, No focal deficit DS: Data Data Completed and Pending Completed studies during hospitalization [Text1]: Procedures Assistance with Respiratory Ventilation, Less than 24 Consecutive Hours, Continuous Positive Airway Pressure (05/03/22) Insertion of Infusion Device into Left Cephalic Vein, Percutaneous Approach (02/19/22) Labs on day of discharge: Laboratory Results - last 24 hr 04/04/24 04/04/24 04/04/24 15:25 18:00 21:03 WBC 9.5 RBC 3.27 L Hgb 8.6 L Hct 27.9 L MCV 85.3 MCH 26.3 L MCHC 30.8 L RDW 15.2 Plt Count 195 MPV 10.6 Absolute Nucleated RBC 0.030 H Nucleated RBC % (auto) 0.3 H Sodium Potassium Chloride Carbon Dioxide Anion Gap BUN Creatinine Estim Creat Clear Calc Estimated GFR Random Glucose Calcium B-Natriuretic Peptide Stool Occult Blood NEGATIVE Random Vancomycin 17.9 04/05/24 05:42 WBC RBC Hgb Hct MCV MCH MCHC RDW Plt Count MPV Absolute Nucleated RBC Nucleated RBC % (auto) Sodium 145 Potassium 4.2 Chloride 101 Carbon Dioxide 36 H Anion Gap 12 BUN 34 H Creatinine 1.21 Estim Creat Clear Calc 64.3 Estimated GFR 45 Random Glucose 135 H Calcium 8.4 B-Natriuretic Peptide 173 H Stool Occult Blood Random Vancomycin Preliminary micro results at discharge 04/03/24 01:23 Blood Culture - Preliminary Blood - Venous No growth after 48 hours. 04/03/24 01:23 Blood Culture - Preliminary Blood - Venous No growth after 48 hours. Discharge Plan Discharge Anticipated Discharge Date/Time: 04/05/24 15:29 Patient Disposition: Home Health Service Discharge Diagnosis: copd, chf Referrals: Physician,Unknown J [Primary Care Provider] - 1 Week Discharge Medications: New prednisone 20 mg Tablet 40 mg PO DAILY Qty: 10 0RF azithromycin 500 mg Tablet 500 mg PO Q24H Qty: 5 0RF furosemide 20 mg tablet 20 mg PO DAILY Qty: 90 0RF Continued aspirin 81 mg Tablet,Delayed Release (/Ec) 81 mg PO BID oxycodone 15 mg tablet 15 mg PO Q4H PRN (Reason: pain) docusate sodium 100 mg Tablet 100 mg PO BID vancomycin in 0.9 % sodium chl 1.5 gram/300 mL Solution 1.5 g IV Q24H Trelegy Ellipta 100-62.5-25 mcg blister with device 1 ea inhalation DAILY Roque-24 400 mg capsule,extended release 24hr 400 mg PO DAILY Discharge Orders: Discharge Order (Routine); Ordered 04/05/24 Ordered By: Can Clark Diet: Advance to usual diet Activity on Discharge: As tolerated Stand Alone Forms: Patient Portal Discharge page Print Language: Danish Activity Restrictions/Additional Instructions: Topical Wound Care Recommendations: Right Lateral Thigh - Cleanse and irrigate with NS, Pat dry.? Apply barrier to periwound, lightly pack with Durafiber AG, be sure to leave a wick to easy removal.? Cover with Foam dressing.? Change every other day. Patient should continue out patient follow up with her VNA service and Lina Hassan for continue treatment. visiting nurses should resume wound vac as outpt and follow up with orthopedic surgeon at [facility] Care Plan Goals: recovery Health Concerns: copd, chf, rle wound Plan of Treatment: continue iv vancomycin treatment for copd - 5 more days azithro, prednisone for chf - started on lasix 20mg daily po maintenance Assessment: see above
--- NOTE | 2024-04-05 15:43 | MHC.CM.PN ---
DP: PT HAS BEEN MEDICALLY CLEARED FOR DC HOME WITH RESUMPTION OF [facility]. BOTH PARTIES HAVE BEEN MADE AWARE VIA [facility]. SPOUSE IS AT BEDSIDE AND WILL TRANSPORT HOME.
[2024-04-05 15:49] VITALS: PULSE 71; RESP 20; O2SAT 97
--- NOTE | 2024-04-05 17:12 | PM.CNGS ---
[facility] Past Medical History Medical History Open wound of lower extremity COPD (chronic obstructive pulmonary disease) Femur fracture Crohn's colitis Immobility Morbid obesity due to excess calories Adopted Femur fracture, right Closed tibia fracture Acute on chronic respiratory failure with hypoxia and hypercapnia Wound of left lower extremity Nonrheumatic mitral (valve) stenosis Acute on chronic right heart failure Paroxysmal atrial fibrillation Dyspnea ALEKSEY treated with BiPAP Hypoventilation associated with obesity Pickwickian syndrome Chronic hypercapnic respiratory failure Opioid use disorder Family History Family History Other Adopted Surgical History Surgical History Hx of cholecystectomy History of open reduction and internal fixation (ORIF) procedure Status post open reduction and internal fixation (ORIF) of fracture Recent surgical procedure on lower extremity Social History Social History Household Members: Significant Other Household Members Other:: , Hoa. Daughter Carolyn, 21. Daughter's Boyfriend, 22. Neice, 21 Housing: House Do you presently have visiting nurse or other home services: Yes (fire safety director and vna) Alcohol intake: former Year quit: 1989 Patient Tobacco Use Status: Former Tobacco user Years Smoked: 25 Smoked in Last 30 Days: No Second Hand Smoke Exposure: No Use of substances other than those prescribed or required for medical reasons: No Currently Displaying Signs/Symptoms of Drug Intoxication Withdrawal: No Have you been hit, kicked, punched, or otherwise hurt by someone within the past year? If so, by whom?: No Do you feel safe in your current relationship?: Yes Is there a partner from a previous relationship who is making you feel unsafe now?: No Advance Directives: Yes Advance Directives on File: Yes Advance Directives Date on File: 12/16/20 Do you have a plan to hurt others: No Plan Recently lost weight without trying: No Nutrition Risks: No Nutritional Risk Patient : No : No Poor oral hygiene: No service: No Current occupational status: disabled Meds Allergies Allergy/AdvReac Type Severity Reaction Status Date / Time gabapentin Allergy Mild Anxiety Verified 04/03/24 01:03 morphine [MORPHINE] Allergy Unknown ANAPHALAXIS, Verified 04/03/24 01:03 anaphylaxis propofol [From Diprivan] Allergy Anaphylaxis Verified 04/03/24 01:03 Home Medications ?Medication ?Instructions ?Recorded ?Confirmed ?Last Taken ?Type theophylline 400 mg 400 mg PO DAILY 01/18/23 04/03/24 Unknown History capsule,extended release 24 hr (Roque-24) fluticasone fur. 100 mcg-umeclid 1 ea inhalation DAILY 11/15/23 04/03/24 Unknown History 62.5 mcg-vilant 25 mcg inhalat.powder (Trelegy Ellipta) aspirin 81 mg tablet,delayed 81 mg PO BID 04/03/24 04/03/24 Unknown History release docusate sodium 100 mg tablet 100 mg PO BID 04/03/24 04/03/24 Unknown History oxycodone 15 mg tablet 15 mg PO Q4H PRN pain 04/03/24 04/03/24 Unknown History vancomycin 1.5 gram/300 mL in 0.9 1.5 g IV Q24H 04/03/24 04/03/24 04/02/24 History % sodium chloride intravenous Physical Exam Vital Signs: Vital Signs: Last Vital Signs Temp 97.9 F 04/05/24 15:32 Pulse 71 04/05/24 15:49 Resp 20 04/05/24 15:49 BP 138/73 04/05/24 15:32 Pulse Ox 97 04/05/24 15:32 O2 Del Method Oxymask 04/05/24 15:32 O2 Flow Rate 4 04/05/24 15:32 BMI result Body Mass Index 56.1 Results Labs 04/04/24 15:25 04/05/24 05:42 Labs: Abnormal lab results 04/05/24 Range/Units 05:42 Carbon Dioxide 36 H (22-29) mmol/L BUN 34 H (9-16) mg/dL Random Glucose 135 H (60-115) mg/dL B-Natriuretic Peptide 173 H (<100) pg/mL BMP 04/05/24 05:42 Sodium 145 Potassium 4.2 Chloride 101 Carbon Dioxide 36 H BUN 34 H Creatinine 1.21 Calcium 8.4 Urine 04/03/24 Range/Units 10:51 Urine Color Yellow Urine Appearance Clear Urine pH 5.5 (5.0-9.0) Ur Specific [place] 1.015 (1.005-1.025) Urine Protein 30 (1+) H (Neg-Trace) mg/dL Urine Glucose (UA) Negative (Negative) mg/dL All other labs normal. Procedures Date of Service Date of Service: 04/05/24
== END 2024-04-05 17:04 | disposition home health service (06) | DRG 190 ==
LOC: HO.ED 03:01 → HO.EDOVER 06:38 → HO.S3 19:49
PROVIDERS: Student in an Organized Health Care Education/Training Program; Admitting Provider Student in an Organized Health Care Education/Training Program; Emergency Provider Emergency Medicine; Visit Provider Internal Medicine
DX: J44.1 Chronic obstructive pulmonary disease with (acute) exacerbation (principal); I50.33 Acute on chronic diastolic (congestive) heart failure; J96.21 Acute and chronic respiratory failure with hypoxia; E66.2 Morbid (severe) obesity with alveolar hypoventilation; Z68.43 Body mass index [BMI] 50.0-59.9, adult; M86.28 Subacute osteomyelitis, other site; I48.0 Paroxysmal atrial fibrillation; F39 Unspecified mood [affective] disorder; D64.9 Anemia, unspecified; Z20.822 Contact with and (suspected) exposure to COVID-19; Z99.81 Dependence on supplemental oxygen; Z87.891 Personal history of nicotine dependence; Z79.51 Long term (current) use of inhaled steroids; Z79.82 Long term (current) use of aspirin; Z79.899 Other long term (current) drug therapy
CPT/HCPCS: 0241U; 36415; 71045; 80048; 80076; 80202; 81001; 82272; 82803; 83540; 83605; 83690; 83735; 83880; 84145; 84484; 85025; 85027; 86140; 87040; 93005; 94640; 94660; 97116; 97162; 99285; C1758; J0456; J0696; J1120; J1650; J1885; J1940; J2470; J2919; J3371

== ENCOUNTER → 2024-04-03 02:07 | Outpatient (BNV) | payer MEDICARE, MEDICAID, SELFPAY | PROVIDERS: Emergency Provider Emergency Medicine; Visit Provider Student in an Organized Health Care Education/Training Program | DX: J44.1 Chronic obstructive pulmonary disease with (acute) exacerbation (principal); J96.21 Acute and chronic respiratory failure with hypoxia; I50.33 Acute on chronic diastolic (congestive) heart failure | CPT/HCPCS: 99223; 99233; 99239; 99499 ==

== ENCOUNTER → 2024-04-03 06:18 | Outpatient (BNV) | payer MEDICARE, MEDICAID, SELFPAY | PROVIDERS: Admitting Provider Student in an Organized Health Care Education/Training Program; Emergency Provider Emergency Medicine; Visit Provider Surgery | DX: S71.109A Unspecified open wound, unspecified thigh, initial encounter (principal) | CPT/HCPCS: 99221 ==

== ENCOUNTER 2024-04-21 11:11 | Emergency (ER) | payer MEDICARE, MEDICAID, SELFPAY ==
[2024-04-21 11:25] VITALS: BP 136/62; PULSE 70; O2SAT 99
[2024-04-21 11:28] VITALS: BP 132/44; PULSE 71; RESP 16; TEMP 36.6; O2SAT 99; BMI 57.0
--- NOTE | 2024-04-21 11:51 | ECG_ITS ---
Test Reason : FATIGUE Blood Pressure : / mmHG Vent. Rate : 074 BPM Atrial Rate : 074 BPM P-R Int : 172 ms QRS Dur : 090 ms QT Int : 374 ms P-R-T Axes : 058 041 046 degrees QTc Int : 415 ms Normal sinus rhythm Normal ECG When compared with ECG of 03-APR-2024 01:31, No significant change was found Referred By: Kiki Armenta Electronically Signed By:VISHAL GONSALEZ
[2024-04-21 11:57] LABS: MANUAL DIFF FLAG NO
[2024-04-21 11:59] LABS: Basophils Percent Auto 0.4 % (0-2); Eosinophils Absolute Auto 0.3 X10*3/uL (0.0-0.4); Eosinophils Percent Auto 3.3 % (0-4); Hematocrit 27.1 % (37.0-47.0); Hemoglobin 7.8 g/dl (12.0-16.0); Imm Gran Abs Auto 0.02 X10*3/uL (0.00-0.03); Imm Gran Pct Auto 0.3 % (0.0-0.4); Lymphocytes Absolute Auto 0.9 X10*3/uL (1.2-4.9); Lymphocytes Percent Auto 11.7 % (20-40); Mean Corpuscular HGB Conc 28.8 g/dl (31.0-35.0); Mean Corpuscular Hemoglobin 25.9 pg (27.0-33.0); Mean Platelet Volume 10.2 fL (9.4-12.3); Monocytes Absolute Auto 0.5 X10*3/uL (0.1-1.2); Monocytes Percent Auto 6.8 % (2-11); Neutrophils Absolute Auto 6.1 x10*3/uL (2.0-8.3); Neutrophils Percent Auto 77.5 % (45-73); Platelet Count 180 X10*3/uL (160-400); Red Blood Count 3.01 X10*6/uL (4.20-5.50); Red Cell Distribution Width 15.6 % (11.0-16.0); White Blood Count 7.8 X10*3/uL (4.8-10.8)
--- OUTSIDE RECORDS SUMMARY | 2024-04-21 11:59 | XMS_ITS ---
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
--- OUTSIDE RECORDS SUMMARY | 2024-04-21 11:59 | XMS_ITS ---
Author Organization [facility] Address [address] [facility] [place] [address] Care Team Providers Care Bobbin Coil Winder Name Role Phone Gal Solorio MD Primary Care Provider Unavail able Ritchie Werner Unavailable [phone] Rowan Nettles Unavailable [phone] Encounters Encounter Location Date Provider Diagnosis [facility] [place] [address] [facility] [place] [address] 02/24/2023 Rowan Nettles PLAN OF TREATMENT No Information
--- OUTSIDE RECORDS SUMMARY | 2024-04-21 11:59 | XMS_ITS ---
Author Organization [facility] Belinda [place] Address [address] [place] [address] Care Team Providers Care Patrol Police Lieutenant Name Role Phone Gal Solorio MD Primary Care Provider Unavail able Ritchie Werner Unavailable [phone] ALLERGIES No Known Allergies REASON FOR VISIT At Risk Footcare, Painful Nail(s) aggrevated by shoes and causing difficulty standing/walking., Foot pain MEDICATIONS Medication SIG (Take, Route, Fr equency, Duration) Notes Start Date End Date Status Bactrim Active PriLOSEC 40MG Active dilTIAZem HCl 180MG Active Trelegy Ellipta Acti ve Apixaban Active Lisinopril 40 MG 1 tablet Orally Once a day for 30 day(s) Active SOCIAL HISTORY Tobacco Use: Social History [...] Risk SNOMED Code Notes Problem Atherosclerosis of [place] artery of both lower extremities, with unspecified presence of clinical manifestation (I70.203) Active confirmed Atherosclerosis of [place] arteries of the extremities ([id number]) VITAL SIGNS Height 5ft 1in in 03/04/2023 Weight 270 lbs 03/04/2023 BMI 51.01 kg/m2 03/04/2023 PROCEDURES Procedure Date Ordered Date Performed Result Body Sit e [id number]-[id number] NAIL, 1-5 03/04/2023 N/A [id number] SKIN LESIONS, 2 TO 4 03/04/2023 N/A [id number] DYSTROPHIC NAILS ANY # 03/04/2023 N/A Encounters Encounter Location Date Provider Diagnosis [facility] [address] [address] 03/04/2023 Ritchie Werner Atherosclerosis of [place] artery of both lower extremities, with unspecified [...] Notes Treatment Notes Treatment Clinical Notes 03/04/2023 Atherosclerosis of [place] artery of both lower extremities, with unspecified presence of clinical manifestation (ICD-10 - I70.203) 03/04/2023 Onychomycosis (ICD-1 0 - B35.1) 03/04/2023 Pain of toe of right foot [...] TREATMENT Pending Test Test Name Order Date [id number] NAIL, 1-5 03/04/2023 [id number] SKIN LESIONS, 2 TO 4 03/04/20 23 [id number] DYSTROPHIC NAILS ANY # Next Appt Details Follow Up: prn, Reason: Procedure Notes * Category Sub-Category Detail Notes Keratoma Treatment Parring or Cutting o f Benign Hyperkeratotic Lesion(s) 06142 ( 2-4 Lesions ) - The Benign hyperkeratotic lesions, as described above were pared, and/or cut utilizing a sterile 15 blade, tissue nippers, and/or dremel , Q8 Debride Nails 1-5 Procedure: Nail debrideme nt performed extensively to reduce/remove overall nail length and girth, subungual debris, and necrotic tissue, by manual and electrical means by use of a nail nipper and/or dremel, to more viable healthy nail plate or bed tissue 1-5. Silver nitrate used for any petechial bleeding as necessary. Patient chooses, no pharmaceutical tx (05218) Nail Reduction Nail Reduction Trimming of dyst rophic nails performed to reduce/remove overall nail length and girth, by manual and electrical means with use of a nail nipper and/or dremel, to more viable healthy nail plate or bed tissue 6-10 (R1127-L4) Progress Notes * Examination Category Sub-Category Detail Notes Neurological SENSORY: Neurological exa m reveals intact sensorium, pain sensation normal, vibration sensation intact, pinprick sensation is normal in the lower extremities, Pt denies, anesthesia, burning, paresthesia, tingling, B/L TINEL'S COMPRESSION: Negative, Saphenous nerve distribution, Right Dermatologic SKIN FINDINGS: Skin exam reveal s Keratotic lesion(s) located at , Medial , IPJ , TA , Medial , IPJ , T5 , Heel(s) , B/L Orthopedic BUNION: Medially promine nt 1st MPJ, (+) Pain on palpation, inflammation present medially, Lateral tracking 1st MPJ incompletely reducible, RIGHT MUSCLE STRENGTH: 5/5 all groups in a symmetrical fashion General Examination GENERAL APPEARANCE: Reveals a pleasant, alert, well nourished, well-developed, well hydrated individual, who demonstrates proper attention to hygiene/body habitus, and is in no acute distress, Pt serves as own historian for office visit today ORIENTED: person, place, and t ron Vascular DP PULSES(B): 0/4, B/L PT PULSES(B): 0/4, B/L CAPILLARY FILL TIME: delayed, all digits , B/L TEMPERTURE GRADIENT(C): decreased, cool to cool, proximal to distal, B/L TROPHIC CONDITION-TEXTURE/ELASTICITY/TURGOR/HAIR GROWTH(B): decreased, B/L EDEMA(C): 4/4 , pitting , with out aching pain , B/L , Leg(s) , Ankle(s) CLAUDICATION(C): denies, B/L REST PAIN: denies, B/L PIGMENTATION: brawny, B/L Nails NAILS are: Elongated, overg rown, dystrophic, lytic, greater than 3mm thick, discolored and friable with crumbly malodorous subungual debris, with pain on palpation , TA , T5 , T8 , T9 , remaining nails are elongated, overgrown, dystrophic History and Physical Notes * HPI (History of Present Illness) Category Sub-Category Detail Notes At Risk footcare Pt States Last PCP Visit: Date: 01/08 Foot Pain Location: Inside, Great to e joint, RIGHT Duration: several years Course: worse Aggravated: any pressure Treatments: rest
--- OUTSIDE RECORDS SUMMARY | 2024-04-21 11:59 | XMS_ITS | Continuity of Care Document ---
Author Organization [facility] Infectious Disease Address [address] [place] [address]- Care Team Providers Care Assembly Operator Name Role Phone Yenny ROSE MD, Chirag Olivo Primary Care Physici an [place] [facility] [place]24 [place] 04/01/24 [facility] Infectious Disease [address] [place] [id number] Allergies, Adverse Reactions, Alerts Substance Reaction Severity Status morphine anaphylaxis Severe Active propofol anaphylaxis Active Tomatoes mouth itch Active gabapentin tardive dyskenesia Active Immunizations Given and Recorded Vaccine Date Status Refusal Reason SARS-CoV-2(COVID-19)mRNA-LNP vac([id number]) 09/08/23 Recorded influenza virus vaccine, inactivated 05/05/22 Give n [...] opioid drug. Start Date: 09/24/21 Status: Ordered aspirin 81 mg oral delayed release tablet 81 mg, 1, tablet, By Mouth, 2 times a day, # 60 tablet, Refills 0, Tot. Refills 0, Maintenance, 03/21/24 16:28:00 EDT, Route to Pharmacy Electronically, [facility], Partial fill upon patient request if the prescription is for a schedule... Start Date: 03/21/24 Status: Ordered atorvastatin 80 mg oral tablet 1 tablet = 80 mg, By Mouth, Daily at bedtime, # 30 tablet, 0 Refills, Maintenance, 05/14/22 16:09:00 EDT, Tablet, [facility], Partial fill upon patient [...] opioid drug. Start Date: 09/01/23 Status: Ordered Clonazepam = 1 mg, By Mouth, Daily, 0 Refills, Maintenance, 03/16/24 10:15:00 EDT, Partial fill upon patient request if the prescription is for a schedule II opioid drug. Start Date: 03/16/24 Status: Ordered Clonazepam = 0.5 mg, By Mouth, 2 times a day, PRN anxiety, 0 Refills, Maintenance, 03/16/24 10:16:00 EDT, Partial fill upon patient request if the prescription is for a schedule II opioid drug. Start Date: 03/16/24 Status: Ordered clonazePAM 0.5 mg oral tablet 1 tablet = 0.5 mg, By Mouth, Daily, PRN Anxiety, # 3 tablet, 0 Refills, Maintenance, 11/17/21 9:43:00 EDT, Tablet, Partial fill upon patient request if the prescription is for a schedule II opioid drug. Start Date: 11/17/21 Stop Date: 11/20/21 Status: Ordered DilTIAZem (Eqv-Tiazac) 240 mg/24 hours oral cap, extended release 1 capsule = 240 mg, By Mouth, Daily, 0 Refills, Maintenance, 03/15/24 9:52:00 EDT, Partial fill upon patient request if the prescription is for a schedule II opioid drug. Start Date: 03/15/24 Status: Ordered docusate sodium 100 mg oral capsule 1 capsule = 100 mg, By Mouth, 2 times a day, # 28 capsule, 0 Refills, Maintenance, 03/21/24 16:26:00 EDT, Capsule, [facility], Partial fill upon patient request if the prescription is for a schedule II opioid drug., 157, cm, 03/21/24 15:... Start Date: 03/21/24 Stop Date: 04/04/24 Status: Ordered doxycycline monohydrate 100 mg oral tablet = 100 mg, By Mouth, Every 12 hours, for 30 days, MAke sure patient is upright 2 hours after ingestion and drink plenty of water when administering, # 60 tablet, 1 Refills, Acute 04/11/24 12:53:00 EDT, 02/11/24 12:53:00 EDT, Tablet, [facility] Start Date: 02/11/24 Stop Date: 04/11/24 Status: Ordered Lisinopril = 60 mg, By Mouth, Daily, 0 Refills, Maintenance, 03/15/24 9:52:00 EDT, Partial fill upon patient request if the prescription is for a schedule II opioid drug. Start Date: 03/15/24 Status: Ordered Narcan 4 mg/0.1 mL nasal spray = 4 mg, Naris, Left, Once, PRN Other, To reverse opioid overdose, may repeat every 2 to 3 minutes until patient responds, call 911 in the meantime, # 2 each, 0 Refills, Soft Stop, 09/01/23 15:31:00 EST, [facility]/pharmacy #[id number], Partial fill upon patient... Start Date: 09/01/23 Status: Ordered omeprazole 20 mg oral delayed release tablet 1 tablet = 20 mg, By Mouth, Daily, # 30 tablet, 0 Refills, Maintenance, 04/17/22 18:01:00 EDT, CR Tablet, [facility]/pharmacy #[id number], Partial fill upon [...] opioid drug. Start Date: 09/01/23 Status: Ordered temazepam 15 mg oral capsule TAKE 2 CAPSULES (30 MG TOTAL) BY MOUTH NIGHTLY AT BEDTIME NEEDED. Start Date: 03/17/24 Status: Ordered theophylline 400 mg/24 hours oral [...] syndrome Confirmed Active Bone fracture Confirmed Active HH (hiatus hernia) 1 Confirmed Active HTN (hypertension) Confirmed Active Respiratory failure with hypoxia Confirmed Active Hardware complicating wound infection Confirmed Active Enterococcus faecalis infection Confirmed Active Open leg wound/ LLE Confirmed Active Opioid use disorder, severe, in sustained remission Confirmed Active Metabolic alkalosis with respiratory acidosis Confirmed Active Severe obesity Confirmed Active Sleep apnea Confirmed Active 1Seen on CT Social History Social History Type Response Smoking Status Former smoker, quit more than 30 days ago; Other: quit x 1 yr; 0.5-1ppd x 30 yrs; entered on: 05/22/21 Sex Patient Care team information Care Team Personnel Name: Thomas Lomax RN Position: [facility] ED RN W/OE and Tasks Member Role: Primary Care Nurse Name: Mandy Hightower RN Position: [facility] RN Member Role: Primary Care Nurse Name: Akosua Moses RN Position: [facility] RN Member Role: Primary Care Nurse Name: Michelle Zambrano RN Position: [facility] RN Member Role: Primary Care Nurse Name: Stacie Ortiz RN Position: [facility] SN RN Member Role: Primary Care Nurse Name: Nicole Alvarado RN Position: [facility] RN Member Role: Primary Care Nurse Name: Saranya Muir RN Position: [facility] RN Member Role: Primary Care Nurse Name: David Gil RN Position: [facility] RN Member Role: Primary Care Nurse Name: Chirag Ramon JR, MD Position: Reference Physician Member Role: PCP Address: Address: [address] [place] [address] Name: Pau Olmedo RN Position: [facility] RN Member Role: Primary Care Nurse Name: Rodrigo Noel RN Position: [facility] RN Member Role: Primary Care Nurse Name: Ximena Constantino RN Position: [facility] SN RN Member Role: Primary Care Nurse Name: Kylie Wilde RN Position: [facility] RN Member Role: Primary Care Nurse Name: Domenica Ramirez RN Position: [facility] RN Member Role: Primary Care Nurse Name: Talita Roberts RN Position: [facility] RN Member Role: Primary Care Nurse Name: Klarissa Ko RN Position: [facility] RN Member Role: Primary Care Nurse Name: Ivette Osorio RN Position: [facility] RN Member Role: Primary Care Nurse Name: Alma Lott RN Position: [facility] SN RN Member Role: Primary Care Nurse Name: Elise Quick NP Position: [facility] Associate Professional Member Role: Lifetime Consulting Provider Address: Address: [address] [place], [place] [address] [place] [address]- Name: Eulalio Prado MD Position: [facility] Renal MD Member Role: Lifetime Consulting Physician Address: Address: [address] [place] [address] [address] [facility] [place] [address]- Name: Caroline Shirley RN Position: [facility] RN Member Role: Primary Care Nurse Name: Cori Landeros RN Position: [facility] RN Member Role: Primary Care Nurse Name: Chelle Ricardo RN Position: [facility] RN Member Role: Primary Care Nurse Name: Wolfgang Siddiqui RN Position: [facility] RN Member Role: Primary Care Nurse Name: Sigrid London RN Position: [facility] RN Member Role: Primary Care Nurse Name: Kelsi Kim RN Position: [facility] RN Member Role: Primary Care Nurse Name: Mireya Catherine RN Position: [facility] RN Member Role: Primary Care Nurse Name: Lizet Hilliard RN Position: [facility] RN Member Role: Primary Care Nurse Name: Magalie Grande RN Position: [facility] RN Member Role: Primary Care Nurse Name: Josefina Leonard RN Position: [facility] SN RN Member Role: Primary Care Nurse Name: Prem Barrera MD Position: [facility] Renal MD Member Role: Lifetime Consulting Physician Address: Address: [address] [place] [address] [address] [facility] [place] [address]- Name: Alma Reyes RN Position: [facility] RN Member Role: Primary Care Nurse Name: Nayely Mercado RN Position: [facility] RN Member Role: Primary Care Nurse Name: Lata Hernandez RN Position: [facility] SN RN Member Role: Primary Care Nurse Name: Atul Molina MD Position: [facility] Renal MD Member Role: Lifetime Consulting Physician Address: Address: [address] [place] [address] [facility] [address] Name: Gema Jean Baptiste RN Position: [facility] RN Member Role: Primary Care Nurse Name: Esther Miller RN Position: [facility] RN Member Role: Primary Care Nurse Name: Siena Coleman RN Position: [facility] RN Member Role: Primary Care Nurse Name: Julia Alex RN Position: [facility] RN Member Role: Primary Care Nurse Name: Brandi Martinez RN Position: [facility] RN Member Role: Primary Care Nurse Name: Joann Moore RN Position: [facility] RN Member Role: Primary Care Nurse Name: Ramya Cook RN Position: [facility] [address] Light Cleaner Member Role: Primary Care Nurse Care Team Related Persons Name: APRIL QUEZADA Name: HARVEY CASAS Address: home [address] [place] [address]
--- OUTSIDE RECORDS SUMMARY | 2024-04-21 11:59 | XMS_ITS | Patient Health Record ---
Author Organization [facility] [place] Address [address] [place] [address] Care Team Providers Care Director Of Speech Pathology Name Role Phone Gal Solorio MD Primary Care Provider Unavail able Ritchie Werner Unavailable [phone] ALLERGIES No Known Allergies REASON FOR REFERRAL [...] Risk SNOMED Code Notes Problem Atherosclerosis of [place] artery of both lower extremities, with unspecified presence of clinical manifestation (I70.203) Active confirmed Atherosclerosis of [place] arteries of the extremities ([id number]) PLAN OF TREATMENT Pending Test Test Name Order Date [id number] NAIL, 1-5 03/04/2023 [id number] SKIN LESIONS, 2 TO 4 03/04/20 23 [id number] DYSTROPHIC NAILS ANY # Insurance Providers Payer Name Payer Address Payer Phone Subscriber Number Group Number Insured Name Patient Relationship to Insured Coverage Start Date Coverage End Date Medicare [employer] [address] [place] [address] [id number] Sample, Brianne Self - patient is the [...]
--- OUTSIDE RECORDS SUMMARY | 2024-04-21 12:01 | XMS_ITS | Continuity of Care Document ---
Author Organization [facility] Address [address] [place] [address]- Care Team Providers Care Apparel Sales Leader Name Role Phone Annemarie Alfred MD Primary Care Physician [phone] Encounter 09/02/23 - 02/28/24 [facility] [address] [place] [address]- Discharge Disposition: [facility] Allergies, Adverse Reactions, Alerts Substance Reaction Severity Status morphine anaphylaxis Severe Active propofol anaphylaxis Active gabapentin tardive dyskenesia Active Tomatoes Active Immunizations Given and Recorded Vaccine Date Status Refusal Reason SARS-CoV-2(COVID-19)mRNA-LNP vac(buf133) 09/08/23 Recorded influenza virus vaccine, inactivated 05/05/22 [...] 0 Refills, Maintenance, 05/14/22 16:10:00 EDT, Tablet, [facility], Partial fill upon patient request if the prescription is for a schedule II opioid drug., 156, cm, 05/14/22 15:10:00... Start Date: 05/14/22 Status: Ordered aspirin 81 mg oral delayed release tablet 81 mg, By Mouth, Daily, # 30 tablet, Refills 0, Tot. Refills 0, Maintenance, 05/14/22 16:09:00 EDT,Route to Pharmacy Electronically, [facility], Partial fill upon patient request if the prescription is for a schedule II opioid drug., 15... Start Date: 05/14/22 Status: Ordered atorvastatin 80 mg oral tablet 1 tablet = 80 mg, By Mouth, Daily at bedtime, # 30 tablet, 0 Refills, Maintenance, 05/14/22 16:09:00 EDT, Tablet, [facility] 3, Partial fill upon patient [...] EDT, Route to Pharmacy Electronically, [facility], Partial fill upon patient request if the prescription is for a schedul... Start Date: 05/14/22 Status: Ordered Docusate Sodium Capsule 100 mg, 1, capsule, By Mouth, 2 times a day, Refills 0, Maintenance, 11/18/21 12:52:00 EDT, Partialfill upon patient request if the prescription is for a schedule II opioid drug. Start Date: 11/18/21 Status: Ordered doxycycline monohydrate 100 mg oral tablet = 100 mg, By Mouth, Every 12 hours, for 30 days, MAke sure patient is upright 2 hours after ingestion and drink plenty of water when administering, # 60 tablet, 1 Refills, Acute 04/11/24 12:53:00 EDT, 02/11/24 12:53:00 EDT, Tablet, [facility] Start Date: 02/11/24 Stop Date: 04/11/24 Status: Ordered ferrous sulfate 325 mg oral enteric coated tablet 325 mg, By Mouth, Every Wednesday, Wednesday and Wednesday, # 30 tablet, Refills 0, Tot. Refills 0, Maintenance, 05/14/22 16:09:00 EDT, Route to Pharmacy Electronically, [facility], Partial fill upon patient request if [...] Soft Stop, 09/01/23 15:31:00 EST, [facility]/pharmacy #[id number], Partial fill upon patient... Start Date: 09/01/23 Status: Ordered nitroglycerin 0.4 mg sublingual tablet 1 tablet = 0.4 mg, Sublingual, Every 5 minutes, PRN Chest Pain, 0 Refills, Maintenance, 05/14/22 7:11:00 EDT, Tablet, Partial fill upon patient request if the prescription is for a schedule II opioiddrug. Start Date: 05/14/22 Status: Ordered nystatin topical 645211 u/gm powder See Instructions, APPLY TO AFFECTED AREA TWICE A DAY TO THE SKIN FOLDS NEEDED, # 30 Gm, 0 Refills, [facility], 15, APPLY TO AFFECTED AREA TWICE A DAY TO THE SKIN FOLDS NEEDED, 155, cm, 06/03/21 10:30:00 EST, Height, 111.36, kg, 04/07/21 11:... Start Date: 09/30/21 Status: Ordered omeprazole 20 mg oral delayed release tablet 1 tablet = 20 mg, By Mouth, Daily, # 30 tablet, 0 Refills, Maintenance, 04/17/22 18:01:00 EDT, CR Tablet, [facility]/pharmacy #[id number], Partial fill upon patient request [...] opioid drug. Start Date: 09/01/23 Status: Ordered theophylline 400 [...] Team Personnel Name: Thomas Lomax RN Position: [facility] ED RN W/OE and Tasks Member Role: Primary Care Nurse Name: Mandy Hightower RN Position: [facility] RN Member Role: Primary Care Nurse Name: Akosua Moses RN Position: [facility] RN Member Role: Primary Care Nurse Name: Michelle Zambrano RN Position: [facility] RN Member Role: Primary Care Nurse Name: Stacie Ortiz RN Position: [facility] SN RN Member Role: Primary Care Nurse Name: Nicole Alvarado RN Position: [facility] AMB Nurse Member Role: Primary Care Nurse Name: Saranya Muir RN Position: [facility] RN Member Role: Primary Care Nurse Name: David Gil RN Position: [facility] RN Member Role: Primary Care Nurse Name: Pau Olmedo RN Position: [facility] RN Member Role: Primary Care Nurse Name: Rodrigo Noel RN Position: [facility] RN Member Role: Primary Care Nurse Name: Ximena Constantino RN Position: [facility] SN RN Member Role: Primary Care Nurse Name: Kylie Wilde RN Position: [facility] RN Member Role: Primary Care Nurse Name: Domenica Ramirez RN Position: [facility] RN Member Role: Primary Care Nurse Name: Klarissa Ko RN Position: [facility] RN Member Role: Primary Care Nurse Name: Ivette Osorio RN Position: [facility] RN Member Role: Primary Care Nurse Name: Alma Lott RN Position: [facility] SN RN Member Role: Primary Care Nurse Name: Elise Quick NP Position: [facility] Associate Professional Member Role: Lifetime Consulting Provider Address: Address: [address] [place] [address] [address] [facility] [place], [place] [address] Name: Eulalio Prado MD Position: [facility] Renal MD Member Role: Lifetime Consulting Physician Address: Address: [address] [facility] [address] [facility] [place] [place] [address]- Name: Annemarie Alfred MD Position: Reference Physician Member Role: PCP Address: Address: [address] [place] [address]- [place] Name: Caroline Shirley RN Position: [facility] RN Member Role: Primary Care Nurse Name: Chelle Ricardo RN Position: [facility] RN Member Role: Primary Care Nurse Name: Kelsi Kim RN Position: [facility] RN Member Role: Primary Care Nurse Name: Mireya Catherine RN Position: [facility] RN Member Role: Primary Care Nurse Name: Lizet Hilliard RN Position: [facility] RN Member Role: Primary Care Nurse Name: Josefina Leonard RN Position: [facility] SN RN Member Role: Primary Care Nurse Name: Prem Barrera MD Position: [facility] Renal MD Member Role: Lifetime Consulting Physician Address: Address: [address] [place] [address] [address] [facility] [place] [address]- Name: Alma Reyes RN Position: [facility] RN Member Role: Primary Care Nurse Name: Lata Hernandez RN Position: [facility] On Site Property Manager Member Role: Primary Care Nurse Name: Atul Molina MD Position: [facility] Renal MD Member Role: Lifetime Consulting Physician Address: Address: [address] [place] [address] [facility] [place] [address]- Name: Gema Jean Baptiste RN Position: [facility] RN Member Role: Primary Care Nurse Name: Esther Miller RN Position: [facility] RN Member Role: Primary Care Nurse Name: Siena Coleman RN Position: [facility] RN Member Role: Primary Care Nurse Name: Julia Alex RN Position: [facility] RN Member Role: Primary Care Nurse Name: Brandi Martinez RN Position: [facility] RN Member Role: Primary Care Nurse Name: Joann Moore RN Position: [facility] RN Member Role: Primary Care Nurse Name: Ramya Cook RN Position: [facility] On Site Property Manager Member Role: Primary Care Nurse Care Team Related Persons Name: DAMIENAPRIL Name: HARVEY CASAS Address: home [address] [place] [address]
--- OUTSIDE RECORDS SUMMARY | 2024-04-21 12:01 | XMS_ITS | Continuity of Care Document ---
Author Organization [facility] Address [address] [place] [address]- Care Team Providers Care Art Psychotherapist Name Role Phone Annemarie Alfred MD Primary Care Physician [place] [facility] [place] 03/10/24 [facility] [address] [place] [id number] Allergies, Adverse Reactions, Alerts Substance Reaction Severity Status morphine anaphylaxis Severe Active propofol anaphylaxis Active gabapentin tardive dyskenesia Active Tomatoes Active Immunizations Given and Recorded Vaccine Date Status Refusal Reason SARS-CoV-2(COVID-19)mRNA-LNP vac([id number]) 09/08/23 Recorded influenza virus vaccine, inactivated 05/05/22 [...] 0 Refills, Maintenance, 05/14/22 16:10:00 EDT, Tablet, [facility], Partial fill upon patient request if the prescription is for a schedule II opioid drug., 156, cm, 05/14/22 15:10:00... Start Date: 05/14/22 Status: Ordered aspirin 81 mg oral delayed release tablet 81 mg, By Mouth, Daily, # 30 tablet, Refills 0, Tot. Refills 0, Maintenance, 05/14/22 16:09:00 EDT,Route to Pharmacy Electronically, [facility], Partial fill upon patient request if the prescription is for a schedule II opioid drug., 15... Start Date: 05/14/22 Status: Ordered atorvastatin 80 mg oral tablet 1 tablet = 80 mg, By Mouth, Daily at bedtime, # 30 tablet, 0 Refills, Maintenance, 05/14/22 16:09:00 EDT, Tablet, [facility] 3, Partial fill upon patient request if [...] 05/14/22 16:09:00 EDT, Route to Pharmacy Electronically, [facility], Partial fill upon patient request [...] 04/11/24 12:53:00 EDT, 02/11/24 12:53:00 EDT, Tablet, [facility] Start Date: 02/11/24 Stop Date: 04/11/24 Status: Ordered ferrous sulfate 325 mg oral enteric coated tablet 325 mg, By Mouth, Every Wednesday, Wednesday and Wednesday, # 30 tablet, Refills 0, Tot. Refills 0, Maintenance, 05/14/22 16:09:00 EDT, Route to Pharmacy Electronically, [facility], Partial fill upon patient request [...] Stop, 09/01/23 15:31:00 EST, [facility]/pharmacy #[id number], Partial fill upon patient... Start Date: 09/01/23 Status: Ordered nitroglycerin 0.4 mg sublingual tablet 1 tablet = 0.4 mg, Sublingual, Every 5 minutes, PRN Chest Pain, 0 Refills, Maintenance, 05/14/22 7:11:00 EDT, Tablet, Partial fill upon patient request if the prescription is for a schedule II opioiddrug. Start Date: 05/14/22 Status: Ordered nystatin topical [id number] u/gm powder See Instructions, APPLY TO AFFECTED AREA TWICE A DAY TO THE SKIN FOLDS NEEDED, # 30 Gm, 0 Refills, [facility], 15, APPLY TO AFFECTED AREA TWICE A [...] Team Personnel Name: Thomas Lomax RN Position: [facility] ED RN W/OE and Tasks Member Role: Primary Care Nurse Name: Mandy Hightower RN Position: [facility] RN Member Role: Primary Care Nurse Name: Akosua Moses RN Position: [facility] RN Member Role: Primary Care Nurse Name: Michelle Zambrano RN Position: [facility] RN Member Role: Primary Care Nurse Name: Stacie Ortiz RN Position: [facility] SN RN Member Role: Primary Care Nurse Name: Nicole Alvarado RN Position: [facility] AMB Nurse Member Role: Primary Care Nurse Name: Saranya Muir RN Position: [facility] RN Member Role: Primary Care Nurse Name: Dvaid Gil RN Position: [facility] RN Member Role: Primary Care Nurse Name: Pau Olmedo RN Position: [facility] RN Member Role: Primary Care Nurse Name: Rodrigo Noel RN Position: [facility] RN Member Role: Primary Care Nurse Name: Ximena Constantino RN Position: [facility] SN RN Member Role: Primary Care Nurse Name: Kylie Wilde RN Position: [facility] RN Member Role: Primary Care Nurse Name: Domenica Ramirez RN Position: [facility] RN Member Role: Primary Care Nurse Name: Klarissa Ko RN Position: [facility] RN Member Role: Primary Care Nurse Name: Ivette Osorio RN Position: [facility] RN Member Role: Primary Care Nurse Name: Alma Lott RN Position: [facility] SN RN Member Role: Primary Care Nurse Name: Elise Quick NP Position: [facility] Associate Professional Member Role: Lifetime Consulting Provider Address: Address: [address] [place] [address] [address] [facility] [place], [place] [address] Name: Eulalio Prado MD Position: [facility] Renal MD Member Role: Lifetime Consulting Physician Address: Address: [address] [facility] [address] [facility] [place] [address]- Name: Annemarie Alfred MD Position: Reference Physician Member Role: PCP Address: Address: [address] [place] [address]- [place] Name: Caroline Shirley RN Position: [facility] RN Member Role: Primary Care Nurse Name: Chelle Ricardo RN Position: [facility] RN Member Role: Primary Care Nurse Name: Kelsi Kim RN Position: [facility] RN Member Role: Primary Care Nurse Name: Mireya Catherine RN Position: [facility] RN Member Role: Primary Care Nurse Name: Lizet Hilliard RN Position: [facility] RN Member Role: Primary Care Nurse Name: Josefina Leonard RN Position: [facility] SN RN Member Role: Primary Care Nurse Name: Prem Barrera MD Position: [facility] Renal MD Member Role: Lifetime Consulting Physician Address: Address: [address] [place] [address] [address] [facility] [place] [address]- Name: Alma Reyes RN Position: [facility] RN Member Role: Primary Care Nurse Name: Lata Hernandez RN Position: [facility] SN RN Member Role: Primary Care Nurse Name: Atul Molina MD Position: [facility] Renal MD Member Role: Lifetime Consulting Physician Address: Address: [address] [place] [address] [facility] [place] [address]- Name: Gema Jean Baptiste RN Position: [facility] RN Member Role: Primary Care Nurse Name: Esther Miller RN Position: [facility] RN Member Role: Primary Care Nurse Name: Siena Coleman RN Position: [facility] RN Member Role: Primary Care Nurse Name: Julia Alex RN Position: [facility] RN Member Role: Primary Care Nurse Name: Brandi Martinez RN Position: [facility] RN Member Role: Primary Care Nurse Name: Joann Moore RN Position: [facility] RN Member Role: Primary Care Nurse Name: Ramya Cook RN Position: [facility] Hospital Plater Hot Dip Member Role: Primary Care Nurse Care Team Related Persons Name: DAMIEN APRIL Name: HARVEY CASAS Address: home [address] [place] [address]
--- OUTSIDE RECORDS SUMMARY | 2024-04-21 12:01 | XMS_ITS | Continuity of Care Document ---
Author Organization [facility] Address [address] [place] [address]- Care Team Providers Care Slate Roofer Name Role Phone Annemarie Alfred MD Primary Care Physician [phone] [facility] [place] - 02/13/24 [facility] [address] [place] [id number] Allergies, Adverse Reactions, Alerts Substance Reaction Severity Status morphine anaphylaxis Severe Active gabapentin tardive dyskenesia Active Tomatoes Active propofol anaphylaxis Active Immunizations Given and Recorded Vaccine Date Status Refusal Reason SARS-CoV-2(COVID-19)mRNA-LNP vac([id number]) 09/08/23 Recorded influenza virus vaccine, inactivated 05/05/22 [...] 0 Refills, Maintenance, 05/14/22 16:10:00 EDT, Tablet, [facility], Partial fill upon patient request if the prescription is for a schedule II opioid drug., 156, cm, 05/14/22 15:10:00... Start Date: 05/14/22 Status: Ordered aspirin 81 mg oral delayed release tablet 81 mg, By Mouth, Daily, # 30 tablet, Refills 0, Tot. Refills 0, Maintenance, 05/14/22 16:09:00 EDT,Route to Pharmacy Electronically, [facility], Partial fill upon patient request if the prescription is for a schedule II opioid drug., 15... Start Date: 05/14/22 Status: Ordered atorvastatin 80 mg oral tablet 1 tablet = 80 mg, By Mouth, Daily at bedtime, # 30 tablet, 0 Refills, Maintenance, 05/14/22 16:09:00 EDT, Tablet, [facility], Partial fill upon patient request if [...] 05/14/22 16:09:00 EDT, Route to Pharmacy Electronically, [facility], Partial fill upon patient request if [...] 04/11/24 12:53:00 EDT, 02/11/24 12:53:00 EDT, Tablet, [facility] Start Date: 02/11/24 Stop Date: 04/11/24 Status: Ordered ferrous sulfate 325 mg oral enteric coated tablet 325 mg, By Mouth, Every Wednesday, Wednesday and Wednesday, # 30 tablet, Refills 0, Tot. Refills 0, Maintenance, 05/14/22 16:09:00 EDT, Route to Pharmacy Electronically, [facility], Partial fill upon patient request if [...] 0 Refills, Soft Stop, 09/01/23 15:31:00 EST, [facility]/pharmacy #[id number], Partial fill upon patient... Start Date: 09/01/23 Status: Ordered nitroglycerin 0.4 mg sublingual tablet 1 tablet = 0.4 mg, Sublingual, Every 5 minutes, PRN Chest Pain, 0 Refills, Maintenance, 05/14/22 7:11:00 EDT, Tablet, Partial fill upon patient request if the prescription is for a schedule II opioiddrug. Start Date: 05/14/22 Status: Ordered nystatin topical [id number] u/gm powder See Instructions, APPLY TO AFFECTED AREA TWICE A DAY TO THE SKIN FOLDS NEEDED, # 30 Gm, 0 Refills, [facility], 15, APPLY TO AFFECTED AREA TWICE A DAY TO THE SKIN FOLDS NEEDED, 155, cm, 06/03/21 10:30:00 EST, Height, 111.36, kg, 04/07/21 11:... Start Date: 09/30/21 Status: Ordered omeprazole 20 mg oral delayed release tablet 1 tablet = 20 mg, By Mouth, Daily, # 30 tablet, 0 Refills, Maintenance, 04/17/22 18:01:00 EDT, CR Tablet, [facility]/pharmacy #[id number], Partial fill upon [...] Team Personnel Name: Thomas Lomax RN Position: [facility] ED RN W/OE and Tasks Member Role: Primary Care Nurse Name: Mandy Hightower RN Position: [facility] RN Member Role: Primary Care Nurse Name: Akosua Moses RN Position: [facility] RN Member Role: Primary Care Nurse Name: Michelle Zambrano RN Position: [facility] RN Member Role: Primary Care Nurse Name: Stacie Ortiz RN Position: [facility] SN RN Member Role: Primary Care Nurse Name: Nicole Alvarado RN Position: [facility] RN Member Role: Primary Care Nurse Name: Saranya Muir RN Position: [facility] RN Member Role: Primary Care Nurse Name: David Gil RN Position: [facility] RN Member Role: Primary Care Nurse Name: Pau Olmedo RN Position: [facility] RN Member Role: Primary Care Nurse Name: Rodrigo Noel RN Position: [facility] RN Member Role: Primary Care Nurse Name: Ximena Constantino RN Position: [facility] SN RN Member Role: Primary Care Nurse Name: Kylie Wilde RN Position: [facility] RN Member Role: Primary Care Nurse Name: Domenica Ramirez RN Position: [facility] RN Member Role: Primary Care Nurse Name: Klarissa Ko RN Position: [facility] RN Member Role: Primary Care Nurse Name: Ivette Osorio RN Position: [facility] RN Member Role: Primary Care Nurse Name: Alma Lott RN Position: [facility] SN RN Member Role: Primary Care Nurse Name: Elise Quick NP Position: [facility] Associate Professional Member Role: Lifetime Consulting Provider Address: Address: [address] [place], [place] [address] [place] [place] [facility] Name: Eulalio Prado MD Position: [facility] Renal MD Member Role: Lifetime Consulting Physician Address: Address: [address] [facility] [address] [facility] [place] [place] - Name: Annemarie Alfred MD Position: Reference Physician Member Role: PCP Address: Address: [address] [place] [address]- Name: Caroline Shirley RN Position: [facility] RN Member Role: Primary Care Nurse Name: Chelle Ricardo RN Position: [facility] RN Member Role: Primary Care Nurse Name: Kelsi Kim RN Position: [facility] RN Member Role: Primary Care Nurse Name: Mireya Catherine RN Position: [facility] RN Member Role: Primary Care Nurse Name: Lizet Hilliard RN Position: [facility] RN Member Role: Primary Care Nurse Name: Josefina Leonard RN Position: [facility] SN RN Member Role: Primary Care Nurse Name: Prem Barrera MD Position: [facility] Renal MD Member Role: Lifetime Consulting Physician Address: Address: [address] [place] [address] [address] [facility] [place] [address]- Name: Alma Reyes RN Position: [facility] RN Member Role: Primary Care Nurse Name: Lata Hernandez RN Position: [facility] Employee Placement Specialist Member Role: Primary Care Nurse Name: Atul Molina MD Position: [facility] Renal MD Member Role: Lifetime Consulting Physician Address: Address: [address] [place] [address] [facility] [place] [address]- Name: Gema Jean Baptiste RN Position: [facility] RN Member Role: Primary Care Nurse Name: Esther Miller RN Position: [facility] RN Member Role: Primary Care Nurse Name: Siena Coleman RN Position: [facility] RN Member Role: Primary Care Nurse Name: Julia Alex RN Position: [facility] RN Member Role: Primary Care Nurse Name: rBandi Martinez RN Position: [facility] RN Member Role: Primary Care Nurse Name: Joann Moore RN Position: [facility] RN Member Role: Primary Care Nurse Name: Ramya Cook RN Position: [facility] Employee Placement Specialist Member Role: Primary Care Nurse Care Team Related Persons Name: APRIL QUEZADA Name: HARVEY CASAS Address: home [address] [place] [address]
--- OUTSIDE RECORDS SUMMARY | 2024-04-21 12:01 | XMS_ITS | Continuity of Care Document ---
Author Organization [facility] Address [address] [place] [address]- Care Team Providers Care Rig Mechanic Name Role Phone Annemarie Alfred MD Primary Care Physician [place] [facility] [place] - 03/09/24 [facility] [address] [place] [id number] Allergies, Adverse Reactions, Alerts Substance Reaction Severity Status morphine anaphylaxis Severe Active propofol anaphylaxis Active gabapentin tardive dyskenesia Active Tomatoes Active Immunizations Given and Recorded Vaccine Date Status Refusal Reason SARS-CoV-2(COVID-19)mRNA-LNP vac([id number]) 09/08/23 Recorded influenza virus vaccine, inactivated 05/05/22 [...] 0 Refills, Maintenance, 05/14/22 16:10:00 EDT, Tablet, [facility], Partial fill upon patient request if the prescription is for a schedule II opioid drug., 156, cm, 05/14/22 15:10:00... Start Date: 05/14/22 Status: Ordered aspirin 81 mg oral delayed release tablet 81 mg, By Mouth, Daily, # 30 tablet, Refills 0, Tot. Refills 0, Maintenance, 05/14/22 16:09:00 EDT,Route to Pharmacy Electronically, [facility], Partial fill upon patient request if the prescription is for a schedule II opioid drug., 15... Start Date: 05/14/22 Status: Ordered atorvastatin 80 mg oral tablet 1 tablet = 80 mg, By Mouth, Daily at bedtime, # 30 tablet, 0 Refills, Maintenance, 05/14/22 16:09:00 EDT, Tablet, [facility], Partial fill upon [...] 05/14/22 16:09:00 EDT, Route to Pharmacy Electronically, [facility], Partial fill upon patient request [...] 04/11/24 12:53:00 EDT, 02/11/24 12:53:00 EDT, Tablet, [facility] Start Date: 02/11/24 Stop Date: 04/11/24 Status: Ordered ferrous sulfate 325 mg oral enteric coated tablet 325 mg, By Mouth, Every Wednesday, Wednesday and Wednesday, # 30 tablet, Refills 0, Tot. Refills 0, Maintenance, 05/14/22 16:09:00 EDT, Route to Pharmacy Electronically, [facility], Partial fill upon [...] 0 Refills, Soft Stop, 09/01/23 15:31:00 EST, [facility]/pharmacy #[id number], Partial fill upon patient... Start Date: 09/01/23 Status: Ordered nitroglycerin 0.4 mg sublingual tablet 1 tablet = 0.4 mg, Sublingual, Every 5 minutes, PRN Chest Pain, 0 Refills, Maintenance, 05/14/22 7:11:00 EDT, Tablet, Partial fill upon patient request if the prescription is for a schedule II opioiddrug. Start Date: 05/14/22 Status: Ordered nystatin topical [id number] u/gm powder See Instructions, APPLY TO AFFECTED AREA TWICE A DAY TO THE SKIN FOLDS NEEDED, # 30 Gm, 0 Refills, [facility], 15, APPLY TO AFFECTED AREA TWICE A DAY TO THE SKIN FOLDS NEEDED, 155, cm, 06/03/21 10:30:00 EST, Height, 111.36, kg, 04/07/21 11:... Start Date: 09/30/21 Status: Ordered omeprazole 20 mg oral delayed release tablet 1 tablet = 20 mg, By Mouth, Daily, # 30 tablet, 0 Refills, Maintenance, 04/17/22 18:01:00 EDT, CR Tablet, [facility]/pharmacy #[id number], Partial fill upon patient request [...] Team Personnel Name: Thomas Lomax RN Position: [facility] ED RN W/OE and Tasks Member Role: Primary Care Nurse Name: Mandy Hightower RN Position: [facility] RN Member Role: Primary Care Nurse Name: Akosua Moses RN Position: [facility] RN Member Role: Primary Care Nurse Name: Michelle Zambrano RN Position: [facility] RN Member Role: Primary Care Nurse Name: Stacie Ortiz RN Position: [facility] SN RN Member Role: Primary Care Nurse Name: Nicole Alvarado RN Position: [facility] AMB Nurse Member Role: Primary Care Nurse Name: Saranya Muir RN Position: [facility] RN Member Role: Primary Care Nurse Name: David Gil RN Position: [facility] RN Member Role: Primary Care Nurse Name: Pau Olmedo RN Position: [facility] RN Member Role: Primary Care Nurse Name: Rodrigo Noel RN Position: [facility] RN Member Role: Primary Care Nurse Name: Ximena Constantino RN Position: [facility] SN RN Member Role: Primary Care Nurse Name: Kylie Wilde RN Position: [facility] RN Member Role: Primary Care Nurse Name: Domenica Ramirez RN Position: [facility] RN Member Role: Primary Care Nurse Name: Klarissa Ko RN Position: [facility] RN Member Role: Primary Care Nurse Name: Ivette Osorio RN Position: [facility] RN Member Role: Primary Care Nurse Name: Alma Lott RN Position: [facility] SN RN Member Role: Primary Care Nurse Name: Elise Quick NP Position: [facility] Associate Professional Member Role: Lifetime Consulting Provider Address: Address: [address] [place], [place] [address] [place], [place] [address] Name: Eulalio Prado MD Position: [facility] Renal MD Member Role: Lifetime Consulting Physician Address: Address: [address] [facility] [address] [facility] [place] [address]- [place] Name: Annemarie Alfred MD Position: Reference Physician Member Role: PCP Address: Address: [address] [place] [address]- [place] Name: Caroline Shirley RN Position: [facility] RN Member Role: Primary Care Nurse Name: Chelle Ricardo RN Position: [facility] RN Member Role: Primary Care Nurse Name: Kelsi Kim RN Position: [facility] RN Member Role: Primary Care Nurse Name: Mireya Catherine RN Position: [facility] RN Member Role: Primary Care Nurse Name: Lizet Hilliard RN Position: [facility] RN Member Role: Primary Care Nurse Name: Josefina Leonard RN Position: [facility] SN RN Member Role: Primary Care Nurse Name: Prem Barrera MD Position: [facility] Renal MD Member Role: Lifetime Consulting Physician Address: Address: [address] [place] [address] [address] [facility] [place] [address]- Name: Alma Reyes RN Position: [facility] RN Member Role: Primary Care Nurse Name: Lata Hernandez RN Position: [facility] SN RN Member Role: Primary Care Nurse Name: Atul Molina MD Position: [facility] Renal MD Member Role: Lifetime Consulting Physician Address: Address: [address] [place] [address] [facility] [place] [address]- Name: Gema Jean Baptiste RN Position: [facility] RN Member Role: Primary Care Nurse Name: Esther Miller RN Position: [facility] RN Member Role: Primary Care Nurse Name: Siena Coleman RN Position: [facility] RN Member Role: Primary Care Nurse Name: Julia Alex RN Position: [facility] RN Member Role: Primary Care Nurse Name: Brandi Martinez RN Position: [facility] RN Member Role: Primary Care Nurse Name: Joann Moore RN Position: [facility] RN Member Role: Primary Care Nurse Name: Ramya Cook RN Position: [facility] Hospital Mine Foreman Member Role: Primary Care Nurse Care Team Related Persons Name: DAMIENAPRIL Name: HARVEY CASAS Address: home [address] [place] [address]
--- OUTSIDE RECORDS SUMMARY | 2024-04-21 12:01 | XMS_ITS | Continuity of Care Document ---
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 Name Role Phone Annemarie Alfred MD Primary Care Physician Encounter [facility] [place] Date(s): 02/09/24 - 02/11/[address] [address]- Encounter Diagnosis Hyperkalemia(Final) - 02/09/24 Chronic kidney disease(Final) - 02/09/24 Discharge Disposition: A-D/C Home Attending Physician: Antonia Henry MD Admitting Physician: Brayden Ramos MD Referring Physician: Not on Staff, Referring MD Allergies, Adverse Reactions, Alerts Substance Reaction Severity Status morphine anaphylaxis Severe Active propofol anaphylaxis Active gabapentin tardive dyskenesia Active Tomatoes Active Immunizations Given and Recorded Vaccine Date Status Refusal Reason SARS-CoV-2(COVID-19)mRNA-LNP vac([id number]) 09/08/23 Recorded influenza virus vaccine, inactivated 05/05/22 [...] 2 times a day, 0 Refills, Maintenance, 03/02/22 10:36:00 EST, Partialfill upon patient request if the prescription is for a schedule II opioid drug. Start Date: 09/24/21 Status: Ordered apixaban 5 mg oral tablet 1 tablet = 5 mg, By Mouth, 2 times a day, # 60 tablet, 0 Refills, Maintenance, 05/14/22 16:10:00 EDT, Tablet, [facility], Partial fill upon patient request if the prescription is for a schedule II opioid drug., 156, cm, 05/14/22 15:10:00... Start Date: 05/14/22 Status: Ordered aspirin 81 mg oral delayed release tablet 81 mg, By Mouth, Daily, # 30 tablet, Refills 0, Tot. Refills 0, Maintenance, 05/14/22 16:09:00 EDT,Route to Pharmacy Electronically, [facility], Partial fill upon patient request if the prescription is for a schedule II opioid drug., 15... Start Date: 05/14/22 Status: Ordered atorvastatin 80 mg oral tablet 1 tablet = 80 mg, By Mouth, Daily at bedtime, # 30 tablet, 0 Refills, Maintenance, 05/14/22 16:09:00 EDT, Tablet, [facility], Partial fill upon patient request if [...] 05/14/22 16:09:00 EDT, Route to Pharmacy Electronically, [facility], Partial fill upon [...] 04/11/24 12:53:00 EDT, 02/11/24 12:53:00 EDT, Tablet, [facility] Start Date: 02/11/24 Stop Date: 04/11/24 Status: Ordered ferrous sulfate 325 mg oral enteric coated tablet 325 mg, By Mouth, Every Wednesday, Wednesday and Wednesday, # 30 tablet, Refills 0, Tot. Refills 0, Maintenance, 05/14/22 16:09:00 EDT, Route to Pharmacy Electronically, [facility], Partial fill upon [...] 0 Refills, Soft Stop, 09/01/23 15:31:00 EST, [id number], Partial fill upon patient... Start Date: 09/01/23 Status: Ordered nitroglycerin 0.4 mg sublingual tablet 1 tablet = 0.4 mg, Sublingual, Every 5 minutes, PRN Chest Pain, 0 Refills, Maintenance, 05/14/22 7:11:00 EDT, Tablet, Partial fill upon patient request if the prescription is for a schedule II opioiddrug. Start Date: 05/14/22 Status: Ordered nystatin topical 445990 u/gm powder See Instructions, APPLY TO AFFECTED AREA TWICE A DAY TO THE SKIN FOLDS NEEDED, # 30 Gm, 0 Refills, [id number], 15, APPLY TO AFFECTED AREA TWICE A DAY TO THE SKIN FOLDS NEEDED, 155, cm, 06/03/21 10:30:00 EST, Height, 111.36, kg, 04/07/21 11:... Start Date: 09/30/21 Status: Ordered omeprazole 20 mg oral delayed release tablet 1 tablet = 20 mg, By Mouth, Daily, # 30 tablet, 0 Refills, Maintenance, 04/17/22 18:01:00 EDT, CR Tablet, [facility]/pharmacy #[id number], Partial fill upon patient request [...] Exam Date Time Procedure Performing Provider Status 02/10/24 6:00 PM US Renal Bladder Maya Pedersen; Au th (Verified) Notes: (US Renal Bladder) Reason For Exam: Intrinsic Renal Disease RESULT: US Renal Bladder US Renal Bladder Reason: Intrinsic Renal Disease. Clinical Question(s): Renal Obstruction. COMPARISON: CT abdomen pelvis 12/07/2020. FINDINGS: Right kidney: 11.3 cm in length. No hydronephrosis. Normal parenchymal thickness and echotexture. No stones. No suspicious mass. Hypoechoic exophytic cystic focus in the interpolar region measuring 1.6 x 1.5 x 1.6 cm. There is mild internal heterogeneity with suspected peripheral incomplete septation. No internal vascularity Additional smaller simple cysts are demonstrated. Left kidney: 13.5 cm in length. No hydronephrosis. Normal parenchymal thickness and echotexture. Nostones. No suspicious mass. A few simple cysts are noted measuring 1.7 x 1.3 x 1.4 cm in the lower pole. Urinary bladder: Normal morphology. No stone, mass, wall thickening or debris. IMPRESSION: No sonographic evidence of hydronephrosis. Bilateral renal cysts are demonstrated including a mild complex cyst in the interpolar region of the right kidney measuring up to 1.6 cm. Follow-up ultrasound in 6 months is recommended to document stability. If definitive characterization is desired, this could be obtained with MRI. I have personally reviewed the images and I agree with this report. WSN: [id number] Ordering Physician: Lyndsey Gerard Dictated By: Franko Howell MD Dictated Date/Time: 02/11/24 8:45 am Reviewed By: Devonte Villafana MD Signed By: Devonte Villafana MD Signed Date/Time: 02/11/24 8:50 am Transcribed By: VIPIN Transcribed Date/Time: 02/11/24 7:47 am * Exam Date Time Procedure Performing Provider Status 02/10/24 10:59 AM Chest Portable Amy Francois; Auth ( Verified) Notes: (Chest Portable) Reason For Exam: SOB;Shortness of Breath RESULT: Chest Portable Chest Portable AP upright Reason: Shortness of Breath; SOB; Clinical Question(s): Pneumonia COMPARISON: Chest radiograph 03/25/2021. FINDINGS: LINES AND TUBES: None. LUNGS AND PLEURA: Low lung volumes with mild basilar atelectasis. Lungs are otherwise clear with no consolidation. No pleural effusion. No pneumothorax, although lung apices partially obscured by patient's chin. HEART, MEDIASTINUM AND JASON: Heart is at the upper limits of normal for size. Normal mediastinal and hilar contour. BONES AND SOFT TISSUES: No acute abnormality. IMPRESSION: Low lung volumes with mild basilar atelectasis. WSN: [id number] Ordering Physician: Slime Thomas Dictated By: Devonte Villafana MD Dictated Date/Time: 02/10/24 11:23 a Reviewed By: Devonte Villafana MD Signed By: Devonte Villafana MD Signed Date/Time: 02/10/24 11:23 am Transcribed By: VIPIN Transcribed Date/Time: 02/10/24 11:21 am * Exam Date Time Procedure Performing Provider Status 02/09/24 6:54 PM XR Femur 2 Views Right Shemar Lerma ; Auth (Verified) Notes: (XR Femur 2 Views Right) Reason For Exam: Infection RESULT: Femur 2 Views Right Femur 2 Views Right, 2 views Hx of Present Illness: BIBA from home d t lethargy and tremors; Reason: Infection; Clinical Question(s): Osteomyelitis; Order Comment: NR @ 02 09 2024 18:28:58 EDT COMPARISON: 04/17/2022 FINDINGS: Old fracture of the distal femur that appears largely, but possibly not completely, healed. Intramedullary agustín and other fixation hardware, appearing unchanged from the previous examination. No evidence of hardware loosening. No acute fracture or dislocation. No osseous erosion or periosteal reaction. The right hip is unremarkable. There is degenerative change in the right knee similar to the previous study. There is an increase in the amount of dense material in soft tissue lateral to the distal femur compared with 04/17/2022. It is unclear how much of this represents residual antibiotic material versus dystrophic calcification. IMPRESSION: No acute abnormality. Old fracture of the distal diaphysis of the right femur with extensive fixation hardware. The fracture is substantially possibly not completely healed. No evidence of hardware loosening. No specific radiographic evidence of osteomyelitis. Increased amount of dense material in soft tissue lateral to the distal femur. This may represent residual antibiotic material, dystrophic calcification, or a combination. WSN: [id number] Ordering Physician: Andrea Cote Dictated By: Sedrick Quintanilla MD Dictated Date/Time: 02/09/24 7:09 pm Reviewed By: Sedrick Quintanilla MD Signed By: Sedrick Quintanilla MD Signed Date/Time: 02/09/24 7:09 pm Transcribed By: VIPIN Transcribed Date/Time: 02/09/24 7:03 pm Vital Signs Most recent to oldest [Reference Range]: 1 2 3 Height 158 cm (02/11/24 11:30 AM) 158 cm (02/11/24 8:55 AM) 158 cm (02/11/24 5:07 AM) Weight 124.9 kg (02/09/24 10:33 PM) 124.9 kg (02/09/24 10:00 PM) Oxygen Saturation [94-100 %] 97 % (02/11/24 11:30 AM) 100 % (02/11/24 8:55 AM) 97 % (02/11/24 5:07 AM) Pulse Rate [55-90 bpm] 62 bpm (02/11/24 11:30 AM) 69 bpm (02/11/24 8:55 AM) 60 bpm (02/11/24 5:07 AM) Body Mass Index [18.5-24.99 kg/m2] 50.03 kg/m2 *>HHI* (02/09/24 10:33 PM) Blood Pressure [90-138/55-84 mm Hg] 143/74mm Hg *H* (02/11/24 11:30 AM) 160/82mm Hg *H* (02/11/24 8:55 AM) 144/59mm Hg *H* (02/11/24 5:07 AM) Respiratory Rate [16-30 br/min] 16 br/min (02/11/24 11:30 AM) 18 br/min (02/11/24 8:55 AM) 18 br/min (02/11/24 5:07 AM) Temperature [96.8-100.4 DegF] 98.1 DegF (02/11/24 11:30 AM) 97.8 DegF (02/11/24 8:55 AM) 98.2 DegF (02/11/24 5:07 AM) Liters per Minute 4 L/min (02/11/24 11:30 AM) 2 L/min (02/11/24 8:55 AM) 3 L/min (02/10/24 10:00 PM) Mode of Delivery (Oxygen) Nasal cannula (02/11/24 11:30 AM) Nasal cannula (02/11/24 8:55 AM) CPAP (02/11/24 5:07 AM) Blood pressure sites Arm, left (02/11/24 11:30 AM) Arm, right (02/11/24 8:55 AM) Arm, right (02/11/24 5:07 AM) Temperature Route Oral (02/11/24 11:30 AM) Oral (02/11/24 8:55 AM) Axillary (02/11/24 5:07 AM) Dry Weight 124.9 kg (02/09/24 10:33 PM) Social History Social History Type Response Smoking Status Former smoker, quit more than 30 days ago; Other: quit x 1 yr; 0.5-1ppd x 30 yrs; entered on: 05/22/21 Sex Admission evaluation note * Christine Callahan MD: MODIFY, PERFORM Event Display: Admission Note Authored Date: [id number] Patient: ??SAMPLE, REID ? Age:??64 Years?Sex:??Female?:??1960?? Chief Complaint/Reason for Consultation BIBA from home d/t lethargy and temors. Here yesterday for hyperkalemia discharged with instructions to have labs drawn outpatient History of Present Illness Patient is 64-year-old with a background history of chronic osteomyelitis of right leg on Bactrim suppression,??chronic pain syndrome, COPD on 3L, ALEKSEY on nocturnal bipap, opioid??disorder in remission,??hypertension,??possible??CKD who presented following ED visit on 02/07 where she was found to have hyperkalemia and new wound opening on right lateral thigh.? Patient notes that approximately 3-4 days ago the wound on her right lateral thigh opened up. Thereis a exposure??white??substance beneath.?? She has serous fluid draining from it. ??It has not beenpurulent. ??The patient denies any nausea, vomiting, diarrhea, dysuria, fevers, diaphoresis.?? The patient denies any palpitations, shortness of breath, chest pain. She has not recently injured the area.??She continues to take her Bactrim suppression. ??Given the open wound, the patient presented to emergency department on 02/07, where she was incidentally noted to have hyperkalemia. ??Given ongoing concerns for both these issues, the patient represented on 02/08 for further evaluation. In the emergency department the patient was incidentally noted to have a potassium of 6.1.??EKG showed mildlypeaked T waves in lateral precordial leads, given this patient was given calcium gluconate, insulin, albuterol nebs in the ED.??Other issues discussed were concerns that the patient is becoming increasingly tired, nodding off at times and has developed intermittent twitching/tremors of her upper lott bs. ?? Patient vitally stable, mildly hypertensive.?? Saturating well on 3L nasal cannula.?? Labs in the ED notable for hemoglobin 10.3, platelets 291, slight neutrophilia.?? Sed rate 48.?? Bicarb 32.?? BUN 26, creatinine 1.3 (appears to be within her baseline), alk phos 123, ERP 1.2. Review of Systems as per HPI?? Objective Vital Signs?? Temperature: 97.9 DegF (02/09/24 22:00:00) Temperature Route: Oral (02/09/24 22:00:00) Pulse Rate: 86 bpm (02/09/24 22:36:00) Respiratory Rate: 20 br/min (02/09/24 22:36:00) Systolic Blood Pressure:??157 mm Hg??High (02/09/24 22:36:00) Diastolic Blood Pressure: 74 mm Hg (02/09/24 22:36:00) Blood pressure sites: Arm, right (02/09/24 19:38:00) Mean Arterial Pressure: 90 mm Hg (02/09/24 19:38:00) Pulse Pressure: 102 mm Hg (02/09/24 19:38:00) Oxygen Saturation: 96 % (02/09/24 22:00:00) Liters per Minute: 4 L/min (02/09/24 22:00:00) Mode of Delivery (Oxygen): Nasal cannula (02/09/24 22:00:00) Early Warning Score: 2 (02/09/24 23:42:44) ? Intake/Output? 02/08 21:04 02/09 07:00 02/08 07:00 02/07 07:00 02/06 07:00 ?? 02/09 01:55 02/09 01:55 02/09 06:59 02/08 06:59 02/07 06:59 Intake ? 50 ?0 ? 50 ?0 ?0 Output ?0 ?0 ?0 ?0 ?0 Net Total ? 50 ?0 ? 50 ?0 ?0 ? Urine Count ?1 ?0 ?1 ?0 ?0 ? Physical Exam General Appearance: The patient is in NAD. HEET: Atraumatic, normocephalic. EOMI. No scleral icterus. Cardiovascular: RRR, ejection systolic murmur.??No gallops, or rubs appreciated. Respiratory:?Very limited examination, could not appreciate breath sounds on posterior auscultation. No increased WOB. GI: Soft. Distended. MS:??Edema of lower limbs (non-pitting) Skin:??Significant venous stasis changes. Bandage on left alexander area. Neuro: ??No slurred speech. Some intermittent upper limb twitching, mild tremor at rest not worse with intention. Psych: Alert and oriented x3. Appropriate and pleasant.?? Right thigh wound: Open 3cm wound draining clear serous fluid, visible white material. Mild surrounding erythema. Assessment/Plan Diagnoses Acute on chronic respiratory failure with hypoxia ??(J96.21) Anxiety ??(F41.9) COPD (chronic obstructive pulmonary disease) ??(J44.9) Chronic kidney disease ??(N18.9) Chronic osteomyelitis ??(M86.60) Chronic pain ??(G89.29) GERD (gastroesophageal reflux disease) ??(K21.9) Hyperkalemia ??(E87.5) Obstructive sleep apnea ??(G47.33) Opioid use disorder in remission ??(F11.91) PAF (paroxysmal atrial fibrillation) ??(I48.0) ?? Patient is 64 year old??presenting for evaluation of worsening wound??on right thigh,??secondary tochronic osteomyelitis and??recurrent hyperkalemia. ?? Chronic osteomyelitis (M86.60):??Patient has new open wound on her right lateral thigh.??As per her, this is a change in the baseline.??X-ray shows??radiopaque material, calcification versus leftoverantibiotic material in this area.??It is visible on examination.??She is draining serous fluid.??She has no symptoms or signs of??bacteremia or sepsis at this point in time.??Her Bactrim is likely con tribution to her recurrent episodes of hyperkalemia ?? - Infectious disease consult ordered - Gauze dressing to wound in interim - wound culture? Hyperkalemia (E87.5):??Patient having recurrent episodes of hyperkalemia.?This most likely in setting of continued Bactrim use, which can cause hyper-K.??Other possible causes may include??dietary,??endocrine mediated (the highly unlikely in patient with hypertension??no other signs of an adrenal crisis).??Patients K+ 5.6 for which lokelma was ordered at 00.00, however lokelma + lab redraw??performed around??~2.00am. ?? -Nutrition consult -Repeat??electrolytes??now -Team in AM to consider??renal consult -ID consult as above re bactrim ?? Acute on chronic respiratory failure with hypoxia (J96.21) ?Grouped with??COPD (chronic obstructive pulmonary disease) (J44.9) - Continue home O2 3L at rest.?? - Theophylline 400 mg nightly - Patient on Trelegy Ellipta 200 mcg/62.5 mcg / 25 mcg, not on formulary -> Patient?? to bring from home - DuoNebs PRN ?? PAF (paroxysmal atrial fibrillation) (I48.0):??Diltiazem 180 mg once daily. Patient has stopped taking her apixaban 5 mg twice daily - Patient requires further education/discussion regarding apixaban ?? Chronic kidney disease (N18.9):??Patient's baseline creatinine appears to be 1.1-1.3.?No definitive VERN present,??however in setting of probable CKD might be contributing to her hyperkalemia. - BMP in a.m.? GERD (gastroesophageal reflux disease) (K21.9):??Pantoprazole 20 mg while in hospital, on omperazole at home Opioid use disorder in remission (F11.91):??Patient on??buprenorphine??4 mg,??4 times a day. Will need addiction med consult??to prescribe as inpatient Chronic pain (G89.29):??Oxycodone 10 mg every??4 hours as needed Anxiety (F41.9):??PRN clonazepam Obstructive sleep apnea (G47.33):??Continue home BiPAP, patient unsure of settings.?Patient brought home??machine with her. Anxiety (F41.9):??On PRN clonazepam ?? Discharge Planning:??home ?? Code Status:??Full ? Patient seen and discussed with attending, ?? BOAZ Glass PGY-2, internal medicine-pediatrics?? Pager Number [phone] Histories Allergies Allergies ?(Active and Proposed Allergies Only) Tomatoes? (Severity: Unknown severity, Onset: Unknown) propofol? (Severity: Unknown severity, Onset: Unknown) ?Reactions: anaphylaxis gabapentin? (Severity: Unknown severity, Onset: Unknown) ?Reactions: tardive dyskenesia morphine? (Severity: Severe, Onset: Unknown) ?Reactions: anaphylaxis, unknown ? Past Medical History/Problem List Active Problems(14) Atrial fibrillation Bacteremia due to Gram-positive bacteria [...] Electronic Cigarette/Vaping Details:??Electronic Cigarette Use: Never. ? Psychosocial History ? Family History Unable to Obtain Family History. ? Medications Home Medications Acetaminophen (acetaminophen 500 [...] inhalation powder)?1?puff(s)?Inhalation?Daily?at the same time every day Milk of Magnesia (Milk of Magnesia Liquid)?30?Milliliter?By Mouth?2 times a day?as needed?Constipation nalOXONE (Narcan 4 mg/0.1 mL nasal spray)?4?Milligram?Naris, Left?Once?as needed?Other?To reverse opioid overdose, may repeat every 2 to 3 minutes until patient responds, call 911 in the meantime Nitroglycerin (nitroglycerin 0.4 mg sublingual tablet)?1?tab(s)?0.4?Milligram?Sublingual?Every 5 minutes?as needed?Chest Pain Nystatin Topical (nystatin topical 383324 u/gm powder)?See Instructions?APPLY TO AFFECTED AREA TWICE A DAY TO THE SKIN FOLDS NEEDED Omeprazole (omeprazole 20 mg oral delayed release tablet)?1?tab(s)?20?Milligram?By Mouth?Daily Oxycodone (oxyCODONE 5 mg oral capsule)?2?capsule?10?Milligram?By Mouth?Every 4 hours?as needed?Pain , Moderate Sulfamethoxazole/Trimethoprim (Sulfamethoxazole 800mg/Trimethoprim 160 mg Tablet)?1?tablet?By Mouth?Daily Sulfamethoxazole/Trimethoprim (Bactrim DS 800 mg-160 mg oral tablet)?1?tab(s)?By Mouth?Every 12 hours Theophylline (theophylline 400 mg/24 hours oral tablet, extended release)?1?tab(s)?400?Milligram?By Mouth?Daily ? Results Recent Labs BLOOD COUNT & DIFF WBC 8.6 k/mm3 ()?? 02/09/2024 16:31 RBC 3.72 m/mm3 (Low)?? 02/09/2024 16:31 Hgb 9.0 Gm/dL (Low)?? 02/09/2024 16:31 Hct 32.0 % (Low)?? 02/09/2024 16:31 MCV 86.0 femtoliters ()?? 02/09/2024 16:31 MCH 24.2 pg (Low)?? 02/09/2024 16:31 MCHC 28.1 g/dL (Low)?? 02/09/2024 16:31 Platelet Count 207 k/mm3 ()?? 02/09/2024 16:31 RDW-SD 54.6 femtoliters (High)?? 02/09/2024 16:31 MPV 9.8 femtoliters ()?? 02/09/2024 16:31 Nucleated RBC (Automated) 0.0 #/100 WBC'S ()?? 02/09/2024 16:31 Abs. NRBC 0.0 k/mm3 ()?? 02/09/2024 16:31 Abs. Neut 7.0 k/mm3 ()?? 02/09/2024 16:31 Abs. Lymph 1.0 k/mm3 ()?? 02/09/2024 16:31 Abs. Bradley 0.5 k/mm3 ()?? 02/09/2024 16:31 Abs. Eo 0.2 k/mm3 ()?? 02/09/2024 16:31 Abs. Baso 0.0 k/mm3 ()?? 02/09/2024 16:31 Neut % 80.7 % (High)?? 02/09/2024 16:31 Lymph % 11.0 % (Low)?? 02/09/2024 16:31 Bradley % 5.3 % ()?? 02/09/2024 16:31 Eos % 1.9 % ()?? 02/09/2024 16:31 Baso % 0.5 % ()?? 02/09/2024 16:31 Imm Gran 0.6 % ()?? 02/09/2024 16:31 Abs. Imm Gran 0.1 k/mm3 ()?? 02/09/2024 16:31 ?? CHEM GENERAL Sodium 142 mmol/L ()?? 02/09/2024 22:51 Potassium 5.6 mmol/L (High)?? 02/09/2024 22:51 Chloride 107 mmol/L ()?? 02/09/2024 22:51 Bicarbonate Level 26 mmol/L ()?? 02/09/2024 22:51 Anion Gap 9 ()?? 02/09/2024 22:51 Glucose Level 107 mg/dL (High)?? 02/09/2024 16:31 Glucose, POC 165 mg/dL (High)?? 02/09/2024 23:28 BUN 39 mg/dL (High)?? 02/09/2024 16:31 Creatinine-Blood 1.34 mg/dL (High)?? 02/09/2024 16:31 Estimated GFR Creatinine 45 ML/MIN/1.73 M2 ()?? 02/09/2024 16:31 Calcium 9.1 mg/dL ()?? 02/09/2024 16:31 C-Reactive Protein 1.8 mg/dL (High)?? 02/09/2024 16:31 ?? HEME OTHER Sed Rate 40 mm/hr (High)?? 02/09/2024 16:31 Hold Blue Top SPECIMEN DISCARDED AFTER 4 HOURS. ()?? 02/09/2024 16:31 ? * Brayden Ramos MD: PERFORM Event Display: Admission Note Authored Date: [id number] Attending Attestation: I have seen and evaluated this patient.?? I have discussed the case and its management with the resident and agree with the findings and sacha documented in the resident's note.?? I?? will continue to provide care to this patient till 7 AMof the admitting date.? 64-year-old female with a past medical history of COPD, sleep apnea, hypertension, chronic osteomyelitis, chronic home oxygen came with a complaint of worsening of the wound of chronic osteomyelitis in right leg.?? Concern of increased serous discharge, fever.?? She was more tired, weak.?? Lab workup showed anemia with hyperkalemia with creatinine 1.34 with high inflammatory markers.?? Patient got calcium gluconate, albuterol, insulin/glucose.?? There might be a jump in creatinine due to Bactrim.?? Will follow-up with nephrology for further recommendation.?? Will continue to treat hyperkalemia as needed.?? Will follow-up with ID for further recommendations.?? Renal function are high along with hyperkalemia most likely due to Bactrim.?? Depending on renal function and hyperkalemia if needed will follow-up with nephrology. EKG study * Event Display: ECG 12-Lead Authored Date: Please click on pdf link to open report * Event Display: ECG 12-Lead Authored Date: Ventricular Rate: 76 BPM Atrial Rate: 76 BPM P-R Interval: 164 ms QRS Duration: 86 ms Q-T Interval: 368 ms QTC Calculation(Bazett): 414 ms P Marianna: 52 degrees R Marianna: 45 degrees T Marianna: 51 degrees Normal sinus rhythm Normal ECG When compared with ECG of 04-MAY-2022 23:29, T wave inversion no longer evident in Anterolateral leads QT has shortened Confirmed by JARON ORDAZ [facility] ([id number]) on 02/09/2024 2:52:31 PM [place]: JARON ORDAZ,[facility] Progress note * Sergio Marinelli MD: PERFORM, MODIFY, MODIFY Event Display: [facility] Authored Date: Patient: ??SAMPLE, REID ? Age:??64 Years?Sex:??Female?:??1960?? Subjective Patient seen and evaluated today. Slight alkalosis noted today. B/L kidney U/S revealing right kidney of 11.3cm + left of 13.5 cm without hydronephrosis. Creatinine at baseline, hyperkalemia has resolved. ?? Review of Systems ROS is negative unless otherwise mentioned in the HPI. Objective Vital Signs?? Temperature: 98.1 DegF (02/11/24 11:30:00) Temperature Route: Oral (02/11/24 11:30:00) Pulse Rate: 62 bpm (02/11/24 11:30:00) Respiratory Rate: 16 br/min (02/11/24 11:30:00) Systolic Blood Pressure:??143 mm Hg??High (02/11/24:30:00) Diastolic Blood Pressure: 74 mm Hg (02/11/24 11:30:00) Blood pressure sites: Arm, left (02/11/24:30:00) Mean Arterial Pressure: 97 mm Hg (02/11/24:30:00) Pulse Pressure: 69 mm Hg (02/11/24 11:30:00) Oxygen Saturation: 97 % (02/11/24::00) Liters per Minute: 4 L/min (02/11/24::00) Mode of Delivery (Oxygen): Nasal cannula (02/11/24:30:00) Early Warning Score: 0 (02/11/24 11:40:13) ? Physical Exam ?? Constitutional: Alert, in no distress. Mental Status: Oriented to person, place and time. Respiratory: Clear to auscultation. No wheezing, rales or rhonchi. Cardiovascular: S1 S2 regular. No murmurs, rubs or gallops. Musculoskeletal: No cyanosis or clubbing. No gross deformities. Normal range of motion. Heme/Lymphatics/Immun: Palpation of neck reveals no swelling or tenderness of neck nodes. Palpationof groin reveals no swelling or tenderness of groin nodes. Psychiatric: Normal mood and affect Results Recent Labs BLOOD COUNT & DIFF WBC 8.6 k/mm3 ()?? 02/11/2024 07:15 RBC 3.57 m/mm3 (Low)?? 02/11/2024 07:15 Hgb 8.7 Gm/dL (Low)?? 02/11/2024 07:15 Hct 29.7 % (Low)?? 02/11/2024 07:15 MCV 83.2 femtoliters ()?? 02/11/2024 07:15 MCH 24.4 pg (Low)?? 02/11/2024 07:15 MCHC 29.3 g/dL (Low)?? 02/11/2024 07:15 Platelet Count 191 k/mm3 ()?? 02/11/2024 07:15 RDW-SD 49.8 femtoliters (High)?? 02/11/2024 07:15 MPV 10.0 femtoliters ()?? 02/11/2024 07:15 Nucleated RBC (Automated) 0.0 #/100 WBC'S ()?? 02/11/2024 07:15 Abs. NRBC 0.0 k/mm3 ()?? 02/11/2024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 Reviewed Antimicrobial Allergies: No known antimicrobial allergies. Family History:??No relevant history of infectious issues in first degree relatives.?? Social History and Infectious Diseases Exposure History: Patient currently lives at home with her , dog, and parakeets. 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 ??Hasa documented history of opioid abuse but denies any illicit drug use. ??She is a former tobacco smoker.?? Review of Systems As per HPI, otherwise full review of systems negative.?? Physical Exam Vitals & Measurements Vital Signs?? Temperature: 97.4 DegF (02/10/24 06:49:00) Temperature Route: Axillary (02/10/24 06:49:00) Pulse Rate: 67 bpm (02/10/24 06:49:00) Respiratory Rate: 21 br/min (02/10/24 06:49:00) Systolic Blood Pressure:??165 mm Hg??High (02/10/24 06:49:00) Diastolic Blood Pressure: 64 mm Hg (02/10/24 06:49:00) Blood pressure sites: Arm, right (02/10/24 06:49:00) Mean Arterial Pressure: 98 mm Hg (02/10/24 06:49:00) Pulse Pressure: 101 mm Hg (02/10/24 06:49:00) Oxygen Saturation: 100 % (02/10/24 06:49:00) Liters per Minute: 6 L/min (02/10/24 06:49:00) Mode of Delivery (Oxygen): CPAP (02/10/24 06:49:00) Early Warning Score: 4 (02/10/24 08:26:04) ?? GENERAL: Alert, no apparent distress. HEENT: Anicteric. Moist oral mucosa without lesions or thrush. CARDIOVASCULAR: Regular rate and rhythm. ??Not able to appreciate any murmurs, rubs, or gallops. LEnonpitting edema present. RESPIRATORY: Lungs sounds diminished anteriorly, CPAP on. GASTROINTESTINAL: Non-distended, normoactive bowel sounds, non-tender. MUSCULOSKELETAL: No gross deformity. SKIN: No diffuse rash present. Right lateral thigh incision site without surrounding erythema or warmth. NEUROLOGICAL/PSYCH: A&Ox3, grossly intact.??Drowsy. ?? Micro: ???05/10/22: MRSA (tetracycline susceptible) ???05/01/22: MRSA (tetracycline susceptible) ? 02/07/21: MRSA (tetracycline & levofloxacin resistant) ? 01/28/21: MRSA (tetracycline & levofloxacin resistant) ???10/23/20: MSSA (tetracycline resistant) and Enterococcus faecalis Assessment/Plan 63 year old female with a past medical history of COPD on home O2, CKD, atrial fibrillation, Crohn???s disease, ALEKSEY on CPAP, chronic stasis insufficiency, followed by ID for chronic osteomyelitis in the setting of retained hardware s/p right femur fracture with ORIF and bone grafting complicated bysurgical site MRSA infection??on Bactrim suppression??800/160 mg once daily since 08/13/22 after transitioning from doxycycline suppression, who was admitted 02/08 with hyperkalemia. Concern that her previous VERN and hyperkalemia may be secondary to Bactrim use. Discussed with antimicrobial stewardship that there is not another reliable way to dose this. 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 I would not recommend use of linezolid mcfp due to its risk of pancytopenic, optic neuritis, and irreversible peripheral neuropathy. She has remained hesitant to follow up with her surgeon to discuss further operative options. ?? The patient was counselled regarding the side effects of tetracyclines. To reduce the risk of esophageal irritation and ulceration, doxycycline should be taken with adequate fluids and should not be taken immediately before bedtime. Doxycycline can be taken with food as this does not affect the absorption of the medication although??advised to avoid divalent or trivalent cations (antacids, vitamins, minerals) within 2 hours of taking doxycycline.??Photosensitivity is also a risk factor and can cause a rash/blistering when exposed. Patient should be advised to avoid direct sunlight or wear protective clothing and sunscreen. ?? - Start suppressive doxycycline 100 mg BID - Monitor respiratory status - Will schedule ID follow??up appointment ? ID will sign-off at this time. ??Thank you for the consultation. ??Please call if any questions arise. ?? ANDREI Eason- Division of Infectious Diseases ?? Discussed with Dr. Arcos (This note was dictated using the dragon software and any typographical/grammatical errors were notdeliberate. Please contact provider for clarifications.) Total Time Spent I spent a total of??80+ minutes today reviewing the chart/medical records, speaking with the patient, formulating, and discussing the treatment plan, and documenting the findings and encounter. Problem List/Past Medical History Ongoing Atrial fibrillation Bacteremia due to Gram-positive bacteria Bone fracture Chronic pain Enterococcus faecalis infection Hardware complicating wound infection HTN (hypertension) Metabolic alkalosis with respiratory acidosis Obesity hypoventilation syndrome Open leg wound/ LLE Opioid use disorder, severe, in sustained remission Respiratory failure with hypoxia Severe obesity Sleep apnea Procedure/Surgical History ???Negative pressure wound therapy (eg, vacuum assisted drainage collection), utilizing durable medical equipment (DME), including topical application(s), wound assessment, and instruction(s) for ongoing care, per session; total wound(s) surface area greater (10/25/2020) Allergies morphine??(anaphylaxis) Tomatoes gabapentin??(tardive dyskenesia) propofol??(anaphylaxis) Social History Alcohol Use: Past. Electronic Cigarette/Vaping Electronic Cigarette Use: Never. Substance Abuse Use: Past. Tobacco Use: Former smoker, quit more than 30 days ago. Other: quit x 1 yr; 0.5-1ppd x 30 yrs. Family History Unable to obtain family history Lab Results Test Name Test Result Date/Time WBC 9.1 k/mm3 02/10/2024 06:59 EDT Hgb 9.3 Gm/dL 02/10/2024 06:59 EDT Platelet Count 219 k/mm3 02/10/2024 06:59 EDT Sodium 144 mmol/L 02/10/2024 06:59 EDT Potassium 5.7 mmol/L 02/10/2024 06:59 EDT Creatinine-Blood 1.10 mg/dL 02/10/2024 06:59 EDT Est Creatinine Clearance 41.79 mL/min 02/10/2024 07:55 EDT Diagnostic Results ?? (02/09/2024 18:54 EDT XR Femur 2 Views Right) IMPRESSION:?? No acute abnormality. Old fracture of the distal diaphysis of the right femur with extensive fixation hardware. The fracture is substantially possibly not completely healed. No evidence of hardware loosening. No specific radiographic evidence of osteomyelitis. Increased amount of dense material in soft tissue lateral to the distal femur. This may represent residual antibiotic material, dystrophic calcification, or a combination. [1] [1]??XR Femur 2 Views Right; Sedrick Quintanilla MD 02/09/2024 18:54 EDT Note * Barbi Roth LPN: PERFORM Event Display: Discharge/Transfer Note Hospital Authored Date: [id number] Nursing Discharge Note Entered On: 02/11/2024 16:08 EDT Performed On: 02/11/2024 15:33 EDT by Barbi Roth LPN Nursing Discharge Note 2 Discharge Time : 02/11/2024 15:45 EDT Discharge Level of Care at Discharge : Home/Nursing Home/Foster Care Patient Left Unit Via : Wheelchair Patient Accompanied Off Unit with : Responsible adult DC Instructions Provided & Signed by Pt : Yes Patient Understands D/C Instructions : Yes Patient Instructions Discharge Signed : Yes Did Pt have Specialty Bed or Wound Vac : No Barbi Roth LPN - 02/11/2024 15:33 EDT * John Gamble MD: MODIFY, PERFORM, MODIFY Event Display: Discharge/Transfer Note Hospital Authored Date: [id number] Patient: ??SAMPLE, REID ? Age:??64 Years?Sex:??Female?:??1960?? Patient Information Discharge Location: S2 Primary Care Physician: Annemarie Alfred MD Admit Date/Time: 02/09/24 21:04 Discharge Disposition Discharge Disposition: Home: No Services Discharge Diagnosis Obstructive sleep apnea (G47.33) COPD exacerbation (J44.1) Chronic pain (G89.29) COPD (chronic obstructive pulmonary disease) (J44.9) Hyperkalemia (E87.5) Chronic osteomyelitis (M86.60) Opioid use disorder in remission (F11.91) Chronic kidney disease (N18.9) Acute on chronic respiratory failure with hypoxia (J96.21) Shortness of breath (R06.02) GERD (gastroesophageal reflux disease) (K21.9) PAF (paroxysmal atrial fibrillation) (I48.0) Anxiety (F41.9) Acute kidney injury (N17.9) _ Discharge Medications Acetaminophen (acetaminophen 500 mg [...] (Docusate Sodium Capsule)?100?Milligram?1?capsule?By Mouth?2 times a day Doxycycline (doxycycline monohydrate 100 mg oral tablet)?100?Milligram?By Mouth?Every 12 hours?for 30?Days?MAke sure patient is upright 2 hours after ingestion and drink plenty of water when administering Ferrous Sulfate (ferrous sulfate 325 mg oral enteric coated tablet)?325?Milligram?By Mouth?Every Wednesday, Wednesday and Wednesday fluticasone/umeclidinium/vilanterol (Trelegy Ellipta 200 mcg-62.5 mcg-25 mcg/inh inhalation powder)?1?puff(s)?Inhalation?Daily?at the same time every day Milk of Magnesia (Milk of Magnesia Liquid)?30?Milliliter?By Mouth?2 times a day?as needed?Constipation nalOXONE (Narcan 4 mg/0.1 mL nasal spray)?4?Milligram?Naris, Left?Once?as needed?Other?To reverse opioid overdose, may repeat every 2 to 3 minutes until patient responds, call 911 in the meantime Nitroglycerin (nitroglycerin 0.4 mg sublingual tablet)?1?tab(s)?0.4?Milligram?Sublingual?Every 5 minutes?as needed?Chest Pain Nystatin Topical (nystatin topical 292826 u/gm powder)?See Instructions?APPLY TO AFFECTED AREA TWICE A DAY TO THE SKIN FOLDS NEEDED Omeprazole (omeprazole 20 mg oral delayed release tablet)?1?tab(s)?20?Milligram?By Mouth?Daily Oxycodone (oxyCODONE 5 mg oral capsule)?2?capsule?10?Milligram?By Mouth?Every 4 hours?as needed?Pain , Moderate Theophylline (theophylline 400 mg/24 hours oral tablet, extended release)?1?tab(s)?400?Milligram?By Mouth?Daily ? Medications Started Doxycycline (100mg Tablet)??1 tablet By Mouth Twice Daily Medications Discontinued Sulfamethoxazole/Trimethoprim (Sulfamethoxazole 800mg/Trimethoprim 160 mg Tablet)?1?tablet?By Mouth?Daily PCP Follow-Up/Heads-Up Please recheck potassium and Cr in 3-5 days. Additionally, BP was high during her hospitalization, but we did not add additional medications. Please continue to monitor. Lastly, while hospitalized, pt experienced severe shortness of breath which resolved after duonebs, acapella, and doxycycline (for chronic osteo). Continue to monitor COPD progression. Lastly, we would recommend she receive a repeat renal ultrasound in 6 months to monitor development of complex cyst of R kidney. Future Appointments Wednesday 11:30 AM EDT ?? With: Jamel CORDOVA, Jordyn Moreno Where: [facility] Infectious Disease [address] [place] [id number]- Status: Pending Hospital Course Reid Sample is 64 year old woman??with PMH of chronic osteomyelitis??R??leg w fixation??hardware??previously on??Bactrim suppression,??chronic pain,??COPD on??3 L??at??home,??ALEKSEY, opioid??use disorder in remission, HTN,??A fib, and GERD who presented due to deepening of her chronic osteomyelitis wound with increased serous drainage and recurrent hyperkalemia. She was also found to have an AKIwith Cr of 1.39. She presented with potassium of 6.2 and received calcium gluconate, albuterol, insulin, and dextrose in the ED. Hyperkalemia and VERN thought to be in the context of prolonged Bactrimuse. ID was consulted and advised to switch abx to Doxycycline 100mg BID and stop Bactrim. Patient will follow up with ID outpatient. Renal was consulted for management of VERN and hyperkalemia. They recommended Lokelma 10g TID until hyperkalemia resolved. Currently, potassium is much improved (normalized) at 4.6, and Cr has decreased after stopping Bactrim to baseline of 0.89. Patient also received a renal ultrasound to evaluate for obstructive causes, which showed complex cyst on R kidney. This should be followed up with repeat U/S in 6 months. Lastly, pt was seen by PT who recommended outpatient PT services. ?? Objective Assessment and Plan Assessment:??Patient is 64 year old woman??with PMH of chronic osteomyelitis??R??leg w fixation??hardware??previously on??Bactrim suppression,??chronic pain,??COPD on??3 L??at??home,??ALEKSEY, opioid??use disorder in remission, HTN,??A fib, and GERD??presenting for evaluation of worsening wound??on right thigh,??secondary to chronic osteomyelitis and??recurrent hyperkalemia. Also found to have??VERN.??Developed shortness of breath on admission, concerning for COPD exacerbation. Hyperkalemia resolvedafter scheduled Lokelma.? Acute on chronic respiratory failure with hypoxia (J96.21):??resolved Shortness of breath (R06.02):??- COPD exacerbation (J44.1):??-?? COPD (chronic obstructive pulmonary disease) (J44.9):? Shortness of breath is greatly improved. In setting of pre-existing COPD. Usually on 3L O2 but currently higher O2 demand. Already on?? Chest??X ray showed??atelectasis??at??lung bases.?? Much improved after Acapella and Duonebs?? Pt on doxy for chronic osteo, and this medication also has antiinflammatory??properties which will help in the case of COPD exacerbation ?? Recommendations:?? - Continue home O2 at rest.?? - Theophylline 400 mg nightly - Trelegy Ellipta 200 mcg/62.5 mcg / 25 mcg - Follow up with PCP? Hyperkalemia (E87.5):?resolved Patient having recurrent episodes of hyperkalemia.??This most likely in setting of continued Bactrim use, which can cause hyper-K.?? K??of 4.6 this morning? Recommendations: -Follow??up with??PCP in??3-5 days to recheck??labs? Chronic osteomyelitis (M86.60):??stable?? Patient has new open wound on her right lateral thigh.??As per her, this is a change in the baseline.??X-ray shows??radiopaque material, calcification versus leftover antibiotic material in this area.??It is visible on examination.??She is draining serous fluid.??She has no symptoms or signs of??bacteremia or sepsis at this point in time.??Her Bactrim is likely contribution to her recurrent episodes of hyperkalemia. ID recommended starting Doxycycline 100 BID and stopping Bactrim.? Recommendations:?? -STOP??Bactrim?? -Continue Doxycycline 100mg BID -Follow up with ID outpatient?? -Follow up with PCP? Opioid use disorder in remission (F11.91):? Patient on??buprenorphine??4 mg,??4 times a day. [facility] Recommendations:?? -Continue buprenorphine 4mg 4x/day ?? Acute Kidney Injury:? Patient's creatinine back to baseline of 0.89.?Likely presented with VERN in setting of Bactrim use Cr improved from 1.38--> 1.17??--> 0.89 ?? Recommendations: - Follow up with PCP for labs? PAF (paroxysmal atrial fibrillation) (I48.0):?? Diltiazem 180 mg once daily. Patient has stopped taking her apixaban 5 mg twice daily ?? Recommendations:?? -Continue Diltiazem 180mg?? -Follow??up??with??PCP about??restarting apixiban ?? Chronic pain (G89.29):??Continue buprenorphine 4g 4xdaily Obstructive sleep apnea (G47.33):??Continue home BiPAP GERD (gastroesophageal reflux disease) (K21.9):?Restart??home??Omeprazole ?? Vital Signs?? Temperature: 98.1 DegF (02/11/24 11:30:00) Temperature Route: Oral (02/11/24 11:30:00) Pulse Rate: 62 bpm (02/11/24 11:30:00) Respiratory Rate: 16 br/min (02/11/24 11:30:00) Systolic Blood Pressure:??143 mm Hg??High (02/11/24 11:30:00) Diastolic Blood Pressure: 74 mm Hg (02/11/24 11:30:00) Blood pressure sites: Arm, left (02/11/24 11:30:00) Mean Arterial Pressure: 97 mm Hg (02/11/24 11:30:00) Pulse Pressure: 69 mm Hg (02/11/24 11:30:00) Oxygen Saturation: 97 % (02/11/24 11:30:00) Liters per Minute: 4 L/min (02/11/24 11:30:00) Mode of Delivery (Oxygen): Nasal cannula (02/11/24 11:30:00) Early Warning Score: 0 (02/11/24 11:40:13) ? . Physical Exam Constitutional: Alert, in no distress. Mental Status: Oriented to person, place and time. Eyes: Pupils are equal, round and reactive to light. Extraocular muscles intact. Respiratory: Clear to auscultation. 3/6 systolic murmur. No wheezing, rales or rhonchi. Cardiovascular: S1 S2 regular.??2/6??systolic murmur?? Gastrointestinal: Abdomen soft, non-tender, non-distended. Normal bowel sounds.?? Neurologic: No focal neurologic defects. Moves all extremities spontaneously. Sensation intact bilaterally. Skin:??R femur wound: ~3 cm deep wound,??central??white??calcified lesion,??no erythema, dry;??L??lower leg: ovular??5cm shallow wound??with??granulation tissue,??dressed with??gauze?? Psychiatric: Normal mood and affect Consultants Infectious disease Renal Pending Results Creatinine Urine ordered on 02/10/2024 Electrolytes ordered on 02/10/2024 Protein/Creatinine Ratio Urine ordered on 02/10/2024 Sodium Urine ordered on 02/10/2024 Wound Superficial Culture W/ Gram Smear ordered on 02/10/2024 Patient Education Titles WebMD Ignite Patient Education - Chronic Kidney Disease (CKD)?? WebMD Ignite Patient Education - Discharge Instructions for Hyperkalemia?? WebMD Ignite Patient Education - Doxycycline?? Patient Instructions You were seen at [facility] for management of chronic osteomyelitis and high potassium(hyperkalemia).?? We believe your hyperkalemia was due to Bactrim use for your chronic osteomyelitis, which can decrease your ability to excrete potassium.?? We gave you Lokelma, which is a medication which lowers your potassium, and stopped your Bactrim medication. Please follow up with your PCP in 3 days to get repeat labs to check your potassium.?? The Infectious Disease team advised us to change your antibiotics from Bactrim to Doxycycline 100mgtwice a day.? Please??take doxycycline 1???2 hours before or after taking antacids, calcium supplements, and laxatives containing magnesium.??Antacids containing magnesium, aluminum, or calcium, calcium supplements, iron products, and laxatives containing magnesium interfere with doxycycline, making it less effective. ??? Please also take doxycycline 2 hours before or 3 hours after iron preparations and vitamin productsthat contain iron. ??? Additionally,??avoid unnecessary or prolonged exposure to sunlight and to wear protective clothing,sunglasses, and sunscreen. Doxycycline may make your skin sensitive to sunlight. Tell your doctor right away if you get a sunburn. Please continue on??the Doxycycline until further notice and??follow up outpatient with??Infectious??Disease??for management of your chronic osteomyelitis.?? Additionally, while you were here you were also??seen by the kidney doctors and diagnosed with an acute kidney injury, likely also due to Bactrim. Your kidney function is now back to normal. We conducted an ultrasound of your kidneys which showed that your kidneys are normal sized.?? We did find??a??cyst in your??right kidney, which we would??like??you to??monitor.??Please??follow up??with repeat??kidney ultrasound??in 6??months.?? We collected additional labs to assess kidney function. Please follow up on these results with yourPCP.?? Lastly, you were seen by physical therapy during your visit, and they recommended outpatient physical therapy. We have given you a prescription for??physical therapy.? We made the following changes to your medications:?? New Medications:?? Doxycycline 100mg twice daily? Stopped Medications:?? Bactrim? Please follow up with your PCP in 3-5 days to get repeat labs and review the results of your urine studies.?? Thank you for letting us be a part of your care.?? Home Health Face to Face ^HomeHealthFTF Results Discharge Labs BLOOD COUNT & DIFF WBC 8.6 k/mm3 ()?? 02/11/2024 07:15 RBC 3.57 m/mm3 (Low)?? 02/11/2024 07:15 Hgb 8.7 Gm/dL (Low)?? 02/11/2024 07:15 Hct 29.7 % (Low)?? 02/11/2024 07:15 MCV 83.2 femtoliters ()?? 02/11/2024 07:15 MCH 24.4 pg (Low)?? 02/11/2024 07:15 MCHC 29.3 g/dL (Low)?? 02/11/2024 07:15 Platelet Count 191 k/mm3 ()?? 02/11/2024 07:15 RDW-SD 49.8 femtoliters (High)?? 02/11/2024 07:15 MPV 10.0 femtoliters ()?? 02/11/2024 07:15 Nucleated RBC (Automated) 0.0 #/100 WBC'S ()?? 02/11/2024 07:15 Abs. NRBC 0.0 k/mm3 ()?? 02/11/2024 07:15 Abs. Neut 7.0 k/mm3 ()?? 02/09/2024 16:31 Abs. Lymph 1.0 k/mm3 ()?? 02/09/2024 16:31 Abs. Bradley 0.5 k/mm3 ()?? 02/09/2024 16:31 Abs. Eo 0.2 k/mm3 ()?? 02/09/2024 16:31 Abs. Baso 0.0 k/mm3 ()?? 02/09/2024 16:31 Neut % 80.7 % (High)?? 02/09/2024 16:31 Lymph % 11.0 % (Low)?? 02/09/2024 16:31 Bradley % 5.3 % ()?? 02/09/2024 16:31 Eos % 1.9 % ()?? 02/09/2024 16:31 Baso % 0.5 % ()?? 02/09/2024 16:31 Imm Gran 0.6 % ()?? 02/09/2024 16:31 Abs. Imm Gran 0.1 k/mm3 ()?? 02/09/2024 16:31 ?? CHEM GENERAL Sodium 142 mmol/L ()?? 02/11/2024 07:17 Potassium 4.6 mmol/L ()?? 02/11/2024 07:17 Chloride 105 mmol/L ()?? 02/11/2024 07:17 Bicarbonate Level 30 mmol/L (High)?? 02/11/2024 07:17 Anion Gap 7 ()?? 02/11/2024 07:17 Glucose Level 170 mg/dL (High)?? 02/11/2024 07:17 Glucose, POC 105 mg/dL (High)?? 02/10/2024 08:23 BUN 23 mg/dL ()?? 02/11/2024 07:17 Creatinine-Blood 0.89 mg/dL ()?? 02/11/2024 07:17 Estimated GFR Creatinine 73 ML/MIN/1.73 M2 ()?? 02/11/2024 07:17 Calcium 8.5 mg/dL (Low)?? 02/11/2024 07:17 Phosphorus 2.7 mg/dL ()?? 02/11/2024 07:17 Magnesium 2.0 mg/dL ()?? 02/11/2024 07:17 C-Reactive Protein 1.8 mg/dL (High)?? 02/09/2024 16:31 ?? HEME OTHER Sed Rate 40 mm/hr (High)?? 02/09/2024 16:31 Hold Blue Top SPECIMEN DISCARDED AFTER 4 HOURS. ()?? 02/09/2024 16:31 ?? URINE OTHER Est Creatinine Clearance 51.65 mL/min ()?? 02/11/2024 08:13 ? _ minutes spent on discharge * Ghazal Schwartz RN: PERFORM Event Display: Patient Education/Instruction Authored Date: [id number] Inpatient Adult Discharge Instructions. [address] [id number] Name: REID CHAUDHARY : 1960?? Visit: 02/09/2024 21:04?? Current Date: 02/11/2024 13:27 ?? Account: [id number]?? Inpatient Adult Discharge Instructions We would like [...] and their families. Surveys are administered by [employer] ?? If further treatment with your primary care physician or another doctor is recommended, it is important for you to keep the appointment. Call your primary care physician or return to the Emergency Department immediately if your condition worsens, fails to improve, or new symptoms develop. If you need to find a doctor, you can call [facility] Link for a referral at [phone] or toll free at [phone]) or log in to [email or web address].. ?? [facility], in keeping with [facility] guidance, no longer requires face [...] portal or by using a health care lang of your choosing. [employer] is a website that allows you to securely view your medical information including your hospital discharge summary, office visit summaries, medications and follow-up visits. You can also request appointments, renew medications, and request access to your medical information using a health care lang of your choosing, or just ask a question. You can enroll at [email or web address] or register during your next office visit. You have been discharged from [facility], Patient Care Unit: S2??. If you have any questions regarding these instructions, including results of studies pending, afteryou leave, please call us and we will be happy to assist you 15/02. [facility] Your Care Team Attending Physician Antonia Henry MD?? Consulting Providers Antonia Henry MD?? Discharging Providers Lyndsey Gerard MD Reason for Your Visit BIBA from home d/t lethargy and temors. Here yesterday for hyperkalemia discharged with instructions to have labs drawn outpatient?? Your Diagnosis Acute kidney injury Acute on chronic respiratory failure with hypoxia Anxiety Chronic osteomyelitis Chronic pain COPD (chronic obstructive pulmonary disease) COPD exacerbation GERD (gastroesophageal reflux disease) Obstructive sleep apnea Opioid use disorder in remission PAF (paroxysmal atrial fibrillation) Shortness of breath Tests Performed Below is a partial list of the tests performed during your hospitalization. You may have had other tests and procedures not included in this list. Please discuss all test results with your provider. Basic Metabolic Panel CBC CBC w/ Differential CRP ELECTROLYTES?-- Results Pending -- ESR GLUCOSE POC Hold Blue Top Tube Lytes Magnesium Level Phosphorus Level Potassium Level Portable Chest US Renal Bladder XR Femur 2 Views Right You will be contacted within 72 hours with your results. Basic Metabolic Panel?? C Reactive Protein (CRP)?? CBC?? CBC w/ Differential?? Creatinine Urine (Urine Creatinine)?? Electrolytes (Lytes)?? Glucose POC?? Hold Blue Top Tube?? Magnesium Level?? Phosphorus Level?? Potassium Level?? Protein/Creatinine Ratio Urine (Urine Protein/Creatinine Ratio)?? Sedimentation Rate (ESR)?? Sodium Urine (Urine Sodium)?? US Renal Bladder?? Wound Superficial Culture W/ Gram Smear (Culture Wound Superficial w/ Gram Smear)?? Chest Portable (Portable Chest)?? Femur 2 Views Right (XR Femur 2 Views Right)?? Primary Care Provider Tima ORDAZ , Annemarie Slater? Advance Directive Health Care Proxy on File Yes - Health Care Proxy Yes - MOLST Discharge Vitals Temperature: 98.1 DegF Height: 158 cm Pulse Rate: 62 bpm Weight: 124.9 kg Respiratory Rate: 16 br/min Body Mass Index:??50.03 kg/m2??Critical Systolic Blood Pressure:??143 mm Hg??High Body surface area: 2.34 Diastolic Blood Pressure: 74 mm Hg ?? Oxygen Saturation: 97 % ?? Studies Pending All studies ordered during this hospital stay have been completed unless listed below. Please discuss all pending results with your provider listed above in these instructions. ?? Creatinine Urine (Urine Creatinine)?? Electrolytes?? Protein/Creatinine Ratio Urine (Urine Protein/Creatinine Ratio)?? Sodium Urine (Urine Sodium)?? Wound Superficial Culture W/ Gram Smear (Culture Wound Superficial w/ Gram Smear)?? What to do next Instructions From Your Doctor You presented to our emergency department with complains of clear discharge from your right thigh chronic wound.?? Your labs showed your kidney function marker and potassium level to be elevated.?? We believe your elevated potassium was due to Bactrim use for your chronic osteomyelitis, which candecrease your ability to excrete potassium.?? We gave you Lokelma, which is a medication which lowers your potassium, and stopped your Bactrim medication. Please follow up with your PCP in 3 days to get repeat labs to check your potassium.?? The Infectious Disease team advised us to change your antibiotics from Bactrim to Doxycycline 100mgtwice a day.? Please??take doxycycline 1???2 hours before or after taking antacids, calcium supplements, and laxatives containing magnesium.??Antacids containing magnesium, aluminum, or calcium, calcium supplements, iron products, and laxatives containing magnesium interfere with doxycycline, making it less effective. ??? Please also take doxycycline 2 hours before or 3 hours after iron preparations and vitamin productsthat contain iron. ??? Additionally,??avoid unnecessary or prolonged exposure to sunlight and to wear protective clothing,sunglasses, and sunscreen. Doxycycline may make your skin sensitive to sunlight. Tell your doctor right away if you get a sunburn. Please continue on??the Doxycycline until further notice and??follow up outpatient with??Infectious??Disease??for management of your chronic osteomyelitis.?? Additionally, while you were here you were also??seen by the kidney doctors and diagnosed with an acute kidney injury, likely also due to Bactrim. Your kidney function is now back to normal. We conducted an ultrasound of your kidneys which showed that your kidneys are normal sized.?? We did find??a??cyst in your??right kidney, which we would??like??you to??monitor.??Please??follow up??with repeat??kidney ultrasound??in 6??months.?? We collected additional labs to assess kidney function. Please follow up on these results with yourPCP.?? Lastly, you were seen by physical therapy during your visit, and they recommended outpatient physical therapy. We have given you a prescription for??physical therapy.? We made the following changes to your medications:?? New Medications:?? Doxycycline 100mg twice daily? Stopped Medications:?? Bactrim? Please follow up with your PCP in 3-5 days to get repeat labs and review the results of your urine studies.?? Thank you for letting us be a part of your care.? Orders??:Cardiac diet :Ambulate with assistance ??3 times a day ??unless otherwise specified Status: ??Full Resuscitation :Fair :Fair? 02/11/24 12:36:00 EDT?? Scheduled Follow-Up Appointments Wednesday 11:30 AM EDT ?? With: Jamel CORDOVA, Jordyn Moreno Where: [facility] Infectious Disease [address] [place] [id number]- Status: Pending You Need to Schedule the Following Appointments Follow Up with??Tima ORDAZ , Annemarie Slater When:??Within 3-5 day: call to discuss follow up visit Why: Please call your PCP office within 3-5 days of discharge to??schedule a follow-up appointment.?? Where: [address] [place] [id number]- Discharge Medications SAMPLE, REID :[id number] Visit Date:02/09/2024 Medications: Please continue your medications until treatment is completed or stopped by your provider. Medications not listed below should be discontinued. Discuss any questions related to medications with your provider. What How Much When Why Instructions Next Dose New Doxycycline (doxycycline monohydrate 100 mg oral tablet) 100 Milligram Oral Every 12 hours Chronic osteomyelitis Duration: 30 Days Refills: 1 MAke sure patient is upright 2 hours after ingestion and drink plenty of water when administering ?? Pickup at [facility] 02/11/24 9pm Unchanged Acetaminophen (acetaminophen 500 mg oral capsule) 1 capsule Oral Twice a day Two times a day 02/11/24 pm Unchanged apixaban (apixaban 5 mg oral tablet) 1 tab(s) Oral Twice a day Two times a day 02/11/24 pm Unchanged Aspirin (aspirin 81 mg oral delayed release tablet) 81 Milligram Oral Daily Daily 02/12/24 Unchanged Atorvastatin (atorvastatin 80 mg oral tablet) 1 tab(s) Oral Daily at Bedtime Daily at night 02/11/24 pm Unchanged Buprenorphine (buprenorphine 2 mg sublingual tablet, disintegrating) 2 tab(s) Sublingual 4 times a day 4 times a day as directed Unchanged Carvedilol (Coreg 6.25 mg oral tablet) 1 tab(s) Oral Twice a day Two times a day 02/11/24 pm Unchanged Clonazepam (clonazePAM 0.5 mg oral tablet) 1 tab(s) Oral Daily as needed for Anxiety Duration: 3 Days as needed Unchanged Diltiazem (Cardizem LA 180 mg/ 24 hours oral tablet, extended release) 1 tab(s) Oral Daily Daily 02/12/24 Unchanged Docusate (Docusate Sodium Capsule) 100 Milligram Oral Twice a day Two times a day 02/11/24 pm Unchanged Ferrous Sulfate (ferrous sulfate 325 mg oral enteric coated tablet) 325 Milligram Oral Wednesday, Wednesday and Wednesday Every Wednesday, Wednesday and Wednesday02/14/24 Unchanged fluticasone/ umeclidinium/ vilanterol (Trelegy Ellipta 200 mcg-62.5 mcg-25 mcg/ inh inhalation powder) 1 puff(s) Inhalation Daily at the same time every day ?? 02/12/24 Unchanged Milk of Magnesia (Milk of Magnesia Liquid) 30 Milliliter Oral Twice a day as needed for Constipation Two times a day as needed as needed Unchanged nalOXONE (Narcan 4 mg/ 0.1 mL nasal spray) 4 Milligram Naris, Left Once as needed for Other To reverse opioid overdose, may repeat every 2 to 3 minutes until patient responds, call 911 in the meantime ?? as needed Unchanged Nitroglycerin (nitroglycerin 0.4 mg sublingual tablet) 1 tab(s) Sublingual Every 5 minutes as needed for Chest Pain as needed as needed Unchanged Nystatin Topical (nystatin topical 666726 u/ gm powder) See instructions APPLY TO AFFECTED AREA TWICE A DAY TO THE SKIN FOLDS NEEDED ?? 02/11/24 pm Unchanged Omeprazole (omeprazole 20 mg oral delayed release tablet) 1 tab(s) Oral Daily Daily 02/12/24 Unchanged Oxycodone (oxyCODONE 5 mg oral capsule) 2 capsule Oral Every 4 hours as needed for Pain , Moderate Every 4 hours as needed as needed Unchanged Theophylline (theophylline 400 mg/ 24 hours oral tablet, extended release) 1 tab(s) Oral Daily Daily 02/12/24 Pharmacy Information [facility] 3: [address], [place] [id number] [phone] ?? What How Much When Comments Stop Taking Sulfamethoxazole/ Trimethoprim (Bactrim DS 800 mg-160 mgoral tablet) 1 tab(s) Oral Every 12 hours Stop Taking Sulfamethoxazole/ Trimethoprim (Sulfamethoxazole 800mg/ Trimethoprim 160 mg Tablet) 1 tab(s) Oral Daily Prescription Given During Visit Doxycycline (doxycycline monohydrate 100 mg oral tablet) - 100 mg, By Mouth, Every 12 hours, # 60 tablet, 1 Refills, MAke sure patient is upright 2 hours after ingestion and drink plenty of water when administering, [facility] 3, [address] [place] [phone]?? Laboratory Results Below is a partial list of the most recent Laboratory test results done prior to this discharge. You may have had other tests and procedures not included in this list. Please discuss all test resultswith your provider. Est Creatinine Clearance - 51.65 mL/min (02/11/2024) Basic Metabolic Panel (02/11/2024) ???Sodium - 142 mmol/L???Potassium - 4.6 mmol/L???Chloride - 105 mmol/L???Bicarbonate Level - 30 mmol/L???Anion Gap - 7???Glucose Level - 170 mg/dL???BUN - 23 mg/dL???Creatinine-Blood - 0.89 mg/dL???Estimated GFR Creatinine - 73 ML/MIN/1.73 M2???Calcium - 8.5 mg/dL CBC (02/11/2024) ???WBC - 8.6 k/mm3???RBC - 3.57 m/mm3???Hgb - 8.7 Gm/dL???Hct - 29.7 %???MCV - 83.2 femtoliters???MCH - 24.4 pg???MCHC - 29.3 g/dL???Platelet Count - 191 k/mm3???RDW-SD - 49.8 femtoliters???MPV - 10.0 femtoliters???Nucleated RBC (Automated) - 0.0 #/100 WBC'S???Abs. NRBC - 0.0 k/mm3 CBC w/ Differential (02/09/2024) ???WBC - 8.6 k/mm3???RBC - 3.72 m/mm3???Hgb - 9.0 Gm/dL???Hct - 32.0 %???MCV - 86.0 femtoliters???MCH - 24.2 pg???MCHC - 28.1 g/dL???Platelet Count - 207 k/mm3???RDW-SD - 54.6 femtoliters???MPV - 9.8femtoliters???Nucleated RBC (Automated) - 0.0 #/100 WBC'S???Abs. NRBC - 0.0 k/mm3???Abs. Neut - 7.0 k/mm3???Abs. Lymph - 1.0 k/mm3???Abs. Bradley - 0.5 k/mm3???Abs. Eo - 0.2 k/mm3???Abs. Baso - 0.0 k/mm3???Neut % - 80.7 %???Lymph % - 11.0 %???Bradley % - 5.3 %???Eos % - 1.9 %???Baso % - 0.5 %???Imm Gran - 0.6 %???Abs. Imm Gran - 0.1 k/mm3 CRP (02/09/2024) ???C-Reactive Protein - 1.8 mg/dL ESR (02/09/2024) ???Sed Rate - 40 mm/hr GLUCOSE POC (02/10/2024) ???Glucose, POC - 105 mg/dL Hold Blue Top Tube (02/09/2024) ???Hold Blue Top - SPECIMEN DISCARDED AFTER 4 HOURS. Lytes (02/10/2024) ???Sodium - 144 mmol/L???Potassium - 5.7 mmol/L???Chloride - 108 mmol/L???Bicarbonate Level - 29 mmol/L???Anion Gap - 7 Magnesium Level (02/11/2024) ???Magnesium - 2.0 mg/dL Phosphorus Level (02/11/2024) ???Phosphorus - 2.7 mg/dL Potassium Level (02/10/2024) ???Potassium - 5.1 mmol/L Allergies (NKA means No Known Allergies) morphine??(anaphylaxis) [...] Educational Leaflet Providered with your Discharge Instructions. WebMD Ignite Patient Education - Doxycycline?? Web[employer] Ignite Patient Education - Discharge Instructions for Hyperkalemia?? Web[employer] Ign[employer] Patient Education - Discharge Instructions for Acute Kidney Injury?? Web[employer] Ignite Patient Education - Chronic Kidney Disease (CKD)?? WebMD Ignite Patient Education - Discharge Instructions for Hyperkalemia?? WebMD Ignite Patient Education - Doxycycline?? Valuables and Belongings I fully understand and agree that [facility] accepts no responsibility for all my personal [...] to send valuables and belongings home. ?? No Valuables/Belongings: No valuables/belongings present Date for Pt to Sign Valuables/Belongings: 02/09/24 20:53:00 ?? Other Discharge Information ? Case Management Discharge Plan?? Discharge Plan?? Discharge Level of Care at Discharge: Home/Nursing Home/Foster Care ?? Pulmonary Rehab Status?? Pulmonary Rehab Discharge Status?? CPAP/BiPAP Mask Type: Full CPAP/BiPAP Mask Size: Other: Pt own mask Respiratory Rate: 16 br/min ? Common Emergency Awareness Tips IS [...] are strongly encouraged to quit. Please call [facility] [employer] Link at [phone] or [phone]. Windows ([phone]) or log in to [email or web address] for referrals to smoking cessation programs. ?? 478 Suicide & Crisis Lifeline is available 15/02 if you or someone you know needs to find a reason to keep living. By calling 362 you'll be connected to a skilled, trained counselor at a crisis center in your area. INPATIENT DISCHARGE INSTRUCTIONS SIGNATURE PAGE REID CHAUDHARY Location:[facility] Registration Date and Time:02/09/2024 21:04 EDT Primary Care Physician: Annemarie Alfred MD, Attending Physician: Antonia Henry MD, I SAMPLEREID, have received the above patient education materials/instructions and have verbalized understanding. If ambulance or transport services are being used I further acknowledge being given a choice of service. ?? If you need to contact me, please call me at this number: . 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 [id number] Doxycycline Brand Name(s): Acticlate??, Acticlate CAP??, Doryx??, Doryx MPC??, Doxychel??, Monodox??, Oracea??,Periostat??, Vibra-Tabs??, Vibramycin??; also available generically WHY is this medicine prescribed? Doxycycline is used to treat a variety of infections caused by certain types of bacteria. Doxycycline is also used to treat or prevent anthrax (a serious infection that may be spread on purpose as part of a bioterror attack) in people who may have been exposed to anthrax in the air and to treat plague and tuleramia (serious infections that may be spread on purpose as part of a bioterror attack). It is also used to prevent malaria. Doxycycline is also used along with other medications to treat acne and rosacea (a skin disease that causes redness, flushing, and pimples on the face). Doxycycline(Oracea) is used only to treat pimples and bumps caused by rosacea. Doxycycline is in a class of medications called tetracycline antibiotics. It works to treat infections by preventing the growth andspread of bacteria. It works to treat acne by killing the bacteria that infects pores and decreasing a certain natural oily substance that causes acne. It works to treat rosacea by decreasing the inflammation that causes this condition. Antibiotics such as doxycycline will not work for colds, flu, or other viral infections. Using antibiotics when they are not needed increases your risk of getting an infection later that resists antibiotic treatment. HOW should this medicine be used? Doxycycline comes as a capsule, tablet, delayed-release tablet, and suspension (liquid) to take by mouth. Doxycycline is usually taken once or twice a day. Drink a full glass of water with each dose.If your stomach becomes upset when you take doxycycline, you may take it with food or milk. Talk with your doctor or pharmacist about the best way to take doxycycline. Follow the directions on your prescription label carefully, and ask your doctor or pharmacist to explain any part you do not understand. Take doxycycline exactly as directed. Do not take more or less of it or take it more often than prescribed by your doctor. Swallow the delayed-release tablets whole; do not split, chew, or crush them. If you cannot swallow certain delayed-release tablets (Doryx; generics) whole, carefully break up the tablet and sprinkle the contents of the tablet on a spoonful of cold or room temperature (not hot) applesauce. Be careful not to crush or damage any of the pellets while you are breaking up the tablet. Eat the mixture right away and swallow without chewing. If the mixture cannot be eaten right away it should be discarded. Shake the suspension well before each use to mix the medication evenly. If you are taking doxycycline for the prevention of malaria, start taking it 1 or 2 days before traveling to an area where there is malaria. Continue taking doxycycline each day you are in the area, and for 4 weeks after leaving the area. You should not take doxycycline for the prevention of malaria for more than 4 months. Continue to take doxycycline even if you feel well. Take all the medication until you are finished,unless your doctor tells you otherwise. One doxycycline product may not be able to be substituted for another. Be sure that you receive only the type of doxycycline that was prescribed by your doctor. Ask your pharmacist if you have any questions about the type of doxycycline you were given. Are there OTHER USES for this medicine? Doxycycline may also be used for the treatment of malaria. It may also be used to treat Lyme disease or to prevent Lyme disease in certain people who have been bitten by a tick. It may also be used to prevent infection in people who were sexually attacked. Talk to your doctor about the possible risks of using this medication for your condition. This medication is sometimes prescribed for other uses; ask your doctor or pharmacist for more information. What SPECIAL PRECAUTIONS should I follow? Before taking doxycycline, ??? tell your doctor and pharmacist if you are allergic to doxycycline, minocycline (Dynacin, Minocin, Solodyn, Ximino), tetracycline (Achromycin V, in Pylera), demeclocycline, any other medications,sulfites, or any of the ingredients in doxycycline capsules, tablets, extended-release tablets, or s uspension. Ask your pharmacist for a list of the ingredients. ??? tell your doctor and pharmacist what prescription and nonprescription medications, vitamins, and nutritional supplements you are taking or plan to take. Be sure to mention any of the following: acitretin; anticoagulants ('blood thinners') such as warfarin (Jantoven); bismuth subsalicylate; carbamazepine (Epitol, Tegretol, others); isotretinoin (Absorica, Clavaris, Myorisan, Zenatane); penicillin; phenobarbital; phenytoin (Phenytek); and proton pump inhibitors such as dexlansoprazole (Dexilant), esomeprazole (Nexium, in Vimovo),lansoprazole (Prevacid), omeprazole (Prilosec, Zegerid, in Talicia), pantoprazole (Protonix), and rabeprazole (Aciphex). Your doctor may need to change the doses of your medications or monitor you carefully for side effects. ??? be aware that antacids containing magnesium, aluminum, or calcium, calcium supplements, iron products, and laxatives containing magnesium interfere with doxycycline, making it less effective. Take doxycycline 1???2 hours before or 1???2 hours after taking antacids, calcium supplements, and laxatives containing magnesium. Take doxycycline 2 hours before or 3 hours after iron preparations and vitamin products that contain iron. ??? tell your doctor if you have or haveever had lupus (condition in which the immune system attacks many tissues and organs including the skin, joints, blood, and kidneys), intracranial hypertension (pseudotumor cerebri; high pressure in the skull that may cause headaches, blurry or double vision, vision loss, and other symptoms), a yeast infection in your mouth or vagina, surgery on your stomach, asthma, or kidney or liver disease. Also, tell you doctor if you have diarrhea. ??? you should know that doxycycline may decrease the effectiveness of hormonal contraceptives ( control pills, patches, rings, or injections). Talk to your doctor about using another form of control. ??? tell your doctor if you are or plan to become . If you become while taking doxycycline, call your doctor immediately. Doxycycline can harm the fetus. ??? tell your doctor if you are . Your doctor may tell you not to breastfeed during your treatment with doxycycline. ??? plan to avoid unnecessary or prolonged exposure to sunlight and to wear protective clothing, sunglasses, and sunscreen. Doxycyclinemay make your skin sensitive to sunlight. Tell your doctor right away if you get a sunburn. ??? youshould know that when you are receiving doxycycline for prevention of malaria, you should also use protective measures such as effective insect repellent, mosquito nets, clothing covering the whole body, and staying in well-screened areas, especially from early nighttime until elie. Taking doxycycline does not give you full protection against malaria. ??? you should know that when doxycycline is used during or in babies or children up to 8 years of age, it can cause the teeth to become permanently stained and can cause problems with bone growth. Doxycycline should not be used in children under 8 years of age except for inhalational anthrax, Mercer spotted fever, or if yourdoctor decides it is needed. What SPECIAL DIETARY instructions should I follow? Unless your doctor tells you otherwise, continue your normal diet. What should I do IF I FORGET to take a dose? Take the missed dose as soon as you remember it. However, if it is almost time for the next dose, skip the missed dose and continue your regular dosing schedule. Do not take a double dose to make up for a missed one. What SIDE EFFECTS can this medicine cause? Doxycycline may cause side effects. Tell your doctor if any of these symptoms are severe or do not go away: ??? nausea ??? vomiting ??? diarrhea ??? loss of appetite ??? itching of the rectum ??? swelling, redness, burning, itching, or irritation of the vagina ??? vaginal discharge ??? painful or difficulturination ??? sore throat or nose ??? swollen tongue ??? dry mouth ??? anxiety ??? back pain ??? changes in color of skin, scars, nails, eyes, or mouth ??? Some side effects can be serious. If you experience any of these symptoms, call your doctor immediately: ??? headache ??? blurred vision, seeing double, or loss of vision ??? rash that may occur with fever or swollen glands ??? hives ??? skin redness, peeling or blistering ??? difficulty breathing or swallowing ??? swelling of the eyes, face, throat, tongue, or lips ??? unusual bleeding or bruising ??? watery or bloody stools, stomach cramps, or fever during treatment or for up to two or more months after stopping treatment ??? a return of fever, sore throat, chills, or other signs of infection ??? joint pain ??? discoloration of permanent (adult) teeth Doxycycline may cause other side effects. Call your doctor if you have any unusual problems while taking this medication. If you experience a serious side effect, you or your doctor may send a report to the Food and Drug Administration's (FDA) MedWatch Adverse Event Reporting program online (http://www.fda.gov/Safety/MedWatch) or by phone ( ). What should I know about STORAGE and DISPOSAL of this medication? Keep this medication in the container it came in, tightly closed, and out of reach of children. Store it at room temperature and away from light and excess heat and moisture (not in the bathroom). It is important to keep all medication out of sight and reach of children as many containers (such as weekly pill minders and those for eye drops, creams, patches, and inhalers) are not child-resistant and young children can open them easily. To protect young children from poisoning, always lock safety caps and immediately place the medication in a safe location ??? one that is up and away and out of their sight and reach. http://www.upandaway.org Unneeded medications should be disposed of in special ways to ensure that pets, children, and otherpeople cannot consume them. However, you should not flush this medication down the toilet. Instead,the best way to dispose of your medication is through a medicine take-back program. Talk to your pharmacist or contact your local garbage/recycling department to learn about take-back programs in your community. See the FDA's Safe Disposal of Medicines website (http://goo.gl/c4Rm4p) for more information if you do not have access to a take- back program. What should I do in case of OVERDOSE? In case of overdose, call the poison control helpline at . Information is also available online at https://www.poisonhelp.org/help. If the victim has collapsed, had a seizure, has trouble breathing, or can't be awakened, immediately call emergency services at 011. What OTHER INFORMATION should I know? Keep all appointments with your doctor and laboratory. Your doctor will want to check your responseto doxycycline. Before having any laboratory test, tell your doctor and the laboratory personnel that you are taking doxycycline. Do not let anyone else take your medication. Your prescription is probably not refillable. If you still have symptoms of infection after you finish the doxycycline, call your doctor. It is important for you to keep a written list of all of the prescription and nonprescription (mfwc-emi-oyvqwbv) medicines you are taking, as well as any products such as vitamins, minerals, or otherdietary supplements. You should bring this list with you each time you visit a doctor or if you areadmitted to a hospital. It is also important information to carry with you in case of emergencies. This report on medications is for your information only, and is not considered individual patient advice. Because of the changing nature of drug information, please consult your physician or pharmacist about specific clinical use. The [employer] represents that the information provided hereunder was formulated with a reasonable standard of care, and in conformity with professional standards in the field. The [employer] makes no representations or warranties, express or implied, including, but not limited to, any implied warranty of merchantability and/or fitness for a particular purpose, with respect to such information and specifically disclaims all such warranties. Users are advised that decisions regarding drug therapy are complex medical decisions requiring the independent, informed decision of an appropriate health health care specialist, and the information is provided for informational purposes only. The entire monograph for a drug should be reviewed for a thorough understanding of the drug's actions, uses and side effects. The [employer] does not endorse or recommend the use of any drug.The information is not a substitute for medical care. AHFS?? Patient Medication Information???. ?? Copyright, 2023. The [employer]??, [address], [address], [place], [place]. All Rights Reserved. Duplication for commercial use must be authorized by [facility]. Selected Revisions: January 07, 2022. AHFS?? Patient Medication Information???. ?? Copyright, 2023 ?? * Lyndsey Gerard MD: PERFORM Event Display: Patient Education Leaflets Authored Date: [id number] Discharge Instructions for Hyperkalemia ?? 27444 Discharge Instructions for Hyperkalemia You have been diagnosed with hyperkalemia. This means you have a high level of potassium in your blood. Potassium is important to the function of the nerve and muscle cells. This includes the cells of the heart. But a high level of potassium in the blood causes serious problems. These include abnormal heart rhythms and even heart attack. Diet changes Eat less of these potassium-rich foods: ??? Bananas ??? Apricots, fresh or dried ??? Oranges and orange juice ??? Grapefruit juice ??? Tomatoes, tomato sauce, and tomato juice ??? Spinach ??? Green, leafy vegetables, including salad greens, kale, broccoli, chard, and collards ??? Melons of all kinds ??? Peas ??? Beans ??? Potatoes ??? Sweet potatoes ??? Avocados and guacamole ??? Vegetable juice (homemade or store-bought) and vegetable juice cocktail ??? Fruit juices ??? Nuts, including pistachios, almonds, peanuts, hazelnuts, [place] nuts, cashews, or mixed nuts ??? Lite or reduced sodium salt ?? Other home care ??? Tell your healthcare provider about all prescription and hrac-tus-annfaey medicines. Also tell them about herbal or dietary supplements you are taking. Certain??medicines and supplements can increase potassium levels. ??? Take all medicines exactly as directed. ??? Have your potassium levels checked regularly. ??? Keep all follow-up appointments. Your healthcare provider needsto monitor your condition closely. ??? Learn to take your own pulse. If your pulse is less than 60??beats per minute, greater than 100 beats per minute, or irregular, call your provider. ?? Follow-up Follow up with your healthcare provider, or as advised. ?? When to call your healthcare provider Call your healthcare provider right away??if you have any of the following: ??? Slow, irregular heartbeat ??? Fatigue ??? Dizziness ??? Lightheadedness ??? Confusion ??? Weakness ?? Call 911 Call 911 if you have any of these: ??? Chest pain ??? Fainting ??? Shortness of breath ?? Last Reviewed Date: 2022 ?? [employer]. All rights reserved. This information is not intended as a substitute for professional medical care. Always follow your healthcare professional's instructions. ?? * Lyndsey Gerard MD: PERFORM Event Display: Patient Education Leaflets Authored Date: [id number] Discharge Instructions for Acute Kidney Injury ?? 68761 Discharge Instructions for Acute Kidney Injury You have been diagnosed with acute kidney injury. This means that you have had a sudden episode of kidney failure or damage that causes your kidneys not to work correctly. When both kidneys are healthy, they help filter out fluid and waste from the blood and body.??Acute kidney injury has many causes. These include urinary blockages, infection, lack of enough blood supply, and medicines that can injure??kidneys. In some cases, acute kidney injury is short-term (temporary). This type lasts several days to a few months. This is because the kidney can repair itself. Acute kidney injury can also result in chronic kidney disease or end stage renal failure. Here are some directions for you to follow as you recover. Home care ??? Follow any directions for eating and drinking given to you by your healthcare provider. o Drink less fluid, if directed by your healthcare provider. o Keep a record of everything you eat and drink. ??? Measure the amount of urine and stool you have each day. ??? Weigh yourself every day, at the same time of day, and in the same kind of clothes. Keep a daily record of your daily weights. ??? Take your temperature every day. Keep a record of the results. ??? Learn to take your own blood pressure (BP). Your healthcare provider can teach you how to correctly measure your BP. Keep a record of your results. Bring the record to your follow-up appointments. Ask your healthcare provider when you should seek emergency medical attention. Your provider will tell you what blood pressure reading is dangerous. ??? Stay away from people who have infections. This includes people with colds, bronchitis, or skin conditions. ??? Practice good personal??hygiene. Wash your hands often. This is especially important if you have a catheter in place when you leave the hospital. Doing so helps keep you safe from infection. ??? Take your medicines exactly as directed. ??? You may need frequent blood and urine tests. These are done to keep track of your kidney function. ?? Follow-up care Follow up with your healthcare provider, or as advised. ?? When to call your healthcare provider Call your??healthcare provider??right away if any of the following occur: ??? Signs of bladder infection, such as urinating more often, burning or pain when you pee, pain above your pubic bone, bloodin your urine, or trouble starting your urine stream ??? Signs of infection around your catheter, such as redness, swelling, warmth, or fluid leaking ??? Rapid weight loss or weight gain, such as 3??pounds or more in 24 hours or 6 pounds or more in 7 days ??? Fever above 100.4?? F ( 38??C ) or as directed by your healthcare provider ??? Chills ??? Muscle aches ??? Night sweats ??? Very little or no urine output ??? Swelling of your hands, legs, or feet ??? Back pain ??? Abdominal (belly) pain ??? Extreme tiredness ?? Last Reviewed Date: 2022 ?? [employer]. All rights reserved. This information is not [...] Care Nurse Name: Saranya Muir RN Position: [facility] RN Member Role: Primary Care Nurse Name: David Gil RN Position: [facility] RN Member Role: Primary Care Nurse Name: Pau Olmedo RN Position: [facility] RN Member Role: Primary Care Nurse Name: Rodrigo Noel RN Position: [facility] RN Member Role: Primary Care Nurse Name: Ximena Constantino RN Position: [facility] SN RN Member Role: Primary Care Nurse Name: Kylie Wilde RN Position: [facility] RN Member Role: Primary Care Nurse Name: Domenica Ramirez RN Position: [facility] RN Member Role: Primary Care Nurse Name: Klarissa Ko RN Position: [facility] RN Member Role: Primary Care Nurse Name: Ivette Osorio RN Position: [facility] RN Member Role: Primary Care Nurse Name: Alma Lott RN Position: [facility] SN RN Member Role: Primary Care Nurse Name: Elise Quick NP Position: [facility] Associate Professional Member Role: Lifetime Consulting Provider Address: Address: [address] [place] [address] [address] [facility] [place] [address]- Name: Eulalio Prado MD Position: [facility] Renal MD Member Role: Lifetime Consulting Physician Address: Address: [address] [place] [address] [address] [facility] [place], [place] [address] Name: Kirchen MD , Annemarie T Position: Reference Physician Member Role: PCP Address: Address: [address] [place] [id number]- [place] Name: Caroline Shirley RN Position: [facility] [...] Care Nurse Name: Lizet Hilliard RN Position: [facility] RN Member Role: Primary Care Nurse Name: Josefina Leonard RN Position: [facility] SN RN Member Role: Primary Care Nurse Name: Prem Barrera MD Position: [facility] Renal MD Member Role: Lifetime Consulting Physician Address: Address: [address] [place] [address] [address] [facility] [place] [address]- Name: Alma Reyes RN Position: [facility] RN Member Role: Primary Care Nurse Name: Lata Hernandez RN Position: [facility] Member Role: Primary Care Nurse Name: Atul Molina MD Position: [facility] Renal MD Member Role: Lifetime Consulting Physician Address: Address: [address] [place] [address] [facility] [place] [place] [address]- Name: Gema Jean Baptiste RN Position: [facility] [...] Care Nurse Name: Ramya Cook RN Position: [facility] Member Role: Primary Care Nurse Care Team Related Persons Name: APRIL CHAUDHARY Name: HARVEY CASAS Address: home [address] [place] [address]
--- OUTSIDE RECORDS SUMMARY | 2024-04-21 12:02 | XMS_ITS | Continuity of Care Document ---
Author Organization [facility] Address [address] [place] [address]- Care Team Providers Care Public Health Advisor Name Role Phone Annemarie Alfred MD Primary Care Physician Encounter [facility] Date(s): 02/09/24 - 03/10/24 [facility] [address] [place] [id number] Allergies, Adverse Reactions, Alerts Substance Reaction Severity Status morphine anaphylaxis Severe Active propofol anaphylaxis Active gabapentin tardive dyskenesia Active Tomatoes Active Immunizations Given and Recorded Vaccine Date Status Refusal Reason SARS-CoV-2(COVID-19)mRNA-LNP vac([id number]) 09/08/23 Recorded influenza virus vaccine, inactivated 05/05/22 [...] 0 Refills, Maintenance, 05/14/22 16:10:00 EDT, Tablet, [facility], Partial fill upon patient request if the prescription is for a schedule II opioid drug., 156, cm, 05/14/22 15:10:00... Start Date: 05/14/22 Status: Ordered aspirin 81 mg oral delayed release tablet 81 mg, By Mouth, Daily, # 30 tablet, Refills 0, Tot. Refills 0, Maintenance, 05/14/22 16:09:00 EDT,Route to Pharmacy Electronically, [facility], Partial fill upon patient request if the prescription is for a schedule II opioid drug., 15... Start Date: 05/14/22 Status: Ordered atorvastatin 80 mg oral tablet 1 tablet = 80 mg, By Mouth, Daily at bedtime, # 30 tablet, 0 Refills, Maintenance, 05/14/22 16:09:00 EDT, Tablet, [facility] 3, Partial fill upon patient request [...] 05/14/22 16:09:00 EDT, Route to Pharmacy Electronically, [facility] [...] 04/11/24 12:53:00 EDT, 02/11/24 12:53:00 EDT, Tablet, [facility] Start Date: 02/11/24 Stop Date: 04/11/24 Status: Ordered ferrous sulfate 325 mg oral enteric coated tablet 325 mg, By Mouth, Every Wednesday, Wednesday and Wednesday, # 30 tablet, Refills 0, Tot. Refills 0, Maintenance, 05/14/22 16:09:00 EDT, Route to Pharmacy Electronically, [facility] [...] 0 Refills, Soft Stop, 09/01/23 15:31:00 EST, [facility] #[id number], Partial fill upon patient... Start Date: 09/01/23 Status: Ordered nitroglycerin 0.4 mg sublingual tablet 1 tablet = 0.4 mg, Sublingual, Every 5 minutes, PRN Chest Pain, 0 Refills, Maintenance, 05/14/22 7:11:00 EDT, Tablet, Partial fill upon patient request if the prescription is for a schedule II opioiddrug. Start Date: 05/14/22 Status: Ordered nystatin topical 986019 u/gm powder See Instructions, APPLY TO AFFECTED AREA TWICE A DAY TO THE SKIN FOLDS NEEDED, # 30 Gm, 0 Refills, [facility], 15, APPLY TO AFFECTED AREA TWICE A DAY TO THE SKIN FOLDS NEEDED, 155, cm, 06/03/21 10:30:00 EST, Height, 111.36, kg, 04/07/21 11:... Start Date: 09/30/21 Status: Ordered omeprazole 20 mg oral delayed release tablet 1 tablet = 20 mg, By Mouth, Daily, # 30 tablet, 0 Refills, Maintenance, 04/17/22 18:01:00 EDT, CR Tablet, [facility]/pharmacy #[id number], Partial fill upon patient request if [...] Team Personnel Name: Thomas Lomax RN Position: [facility] ED RN W/OE and Tasks Member Role: Primary Care Nurse Name: Mandy Hightower RN Position: [facility] RN Member Role: Primary Care Nurse Name: Akosua Moses RN Position: [facility] RN Member Role: Primary Care Nurse Name: Michelle Zambrano RN Position: [facility] RN Member Role: Primary Care Nurse Name: Stacie Ortiz RN Position: [facility] SN RN Member Role: Primary Care Nurse Name: Nicole Alvarado RN Position: [facility] AMB Nurse Member Role: Primary Care Nurse Name: Saranya Muir RN Position: [facility] RN Member Role: Primary Care Nurse Name: David Gil RN Position: [facility] RN Member Role: Primary Care Nurse Name: Pau Olmedo RN Position: [facility] RN Member Role: Primary Care Nurse Name: Rodrigo Noel RN Position: [facility] RN Member Role: Primary Care Nurse Name: Ximena Constantino RN Position: [facility] SN RN Member Role: Primary Care Nurse Name: Kylie Wilde RN Position: [facility] RN Member Role: Primary Care Nurse Name: Domenica Ramirez RN Position: [facility] RN Member Role: Primary Care Nurse Name: Klarissa Ko RN Position: [facility] RN Member Role: Primary Care Nurse Name: Ivette Osorio RN Position: [facility] RN Member Role: Primary Care Nurse Name: Alma Lott RN Position: [facility] SN RN Member Role: Primary Care Nurse Name: Elise Quick NP Position: [facility] Associate Professional Member Role: Lifetime Consulting Provider Address: Address: [address] [place] [address] [address] [facility] [place], [place] [address] Name: Eulalio Prado MD Position: [facility] Renal MD Member Role: Lifetime Consulting Physician Address: Address: [address] [facility] [address] [facility] [place] [place] [address]- Name: Annemarie Alfred MD Position: Reference Physician Member Role: PCP Address: Address: [address] [place] [address]- [place] Name: Caroline Shirley RN Position: [facility] RN Member Role: Primary Care Nurse Name: Chelle Ricardo RN Position: [facility] RN Member Role: Primary Care Nurse Name: Kelsi Kim RN Position: [facility] RN Member Role: Primary Care Nurse Name: Mireya Catherine RN Position: [facility] RN Member Role: Primary Care Nurse Name: Lizet Hilliard RN Position: [facility] RN Member Role: Primary Care Nurse Name: Josefina Leonard RN Position: [facility] SN RN Member Role: Primary Care Nurse Name: Prem Barrera MD Position: [facility] Renal MD Member Role: Lifetime Consulting Physician Address: Address: [address] [place] [address] [address] [facility] [place] [address]- Name: Alma Reyes RN Position: [facility] RN Member Role: Primary Care Nurse Name: Lata Hernandez RN Position: [facility] SN RN Member Role: Primary Care Nurse Name: Atul Molina MD Position: [facility] Renal MD Member Role: Lifetime Consulting Physician Address: Address: [address] [place] [address] [facility] [place] [place] [address]- Name: Gema Jean Baptiste RN Position: [facility] RN Member Role: Primary Care Nurse Name: Esther Miller RN Position: [facility] RN Member Role: Primary Care Nurse Name: Siena Coleman RN Position: [facility] RN Member Role: Primary Care Nurse Name: Julia Alex RN Position: [facility] RN Member Role: Primary Care Nurse Name: Brandi Martinez RN Position: [facility] RN Member Role: Primary Care Nurse Name: Joann Moore RN Position: [facility] RN Member Role: Primary Care Nurse Name: Ramya Cook RN Position: [facility] Hospital Records Administrator Member Role: Primary Care Nurse Care Team Related Persons Name: DAMIEN APRIL Name: HARVEY CASAS Address: home [address] [place] [address]
--- OUTSIDE RECORDS SUMMARY | 2024-04-21 12:02 | XMS_ITS | Continuity of Care Document ---
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 Start Date: 03/21/24 Status: Ordered atorvastatin 80 mg oral tablet 1 tablet = 80 mg, By Mouth, Daily at bedtime, # 30 tablet, 0 Refills, Maintenance, 05/14/22 16:09:00 EDT, Tablet, [facility], Partial fill upon patient [...] 0 Refills, Maintenance, 03/21/24 16:26:00 EDT, Capsule, [facility], Partial fill upon patient [...] 04/11/24 12:53:00 EDT, 02/11/24 12:53:00 EDT, Tablet, [facility] Start Date: 02/11/24 Stop Date: [...] 0 Refills, Soft Stop, 09/01/23 15:31:00 EST, [facility]/pharmacy #[id number], Partial fill upon patient... Start Date: 09/01/23 Status: Ordered omeprazole 20 mg oral delayed release tablet 1 tablet = 20 mg, By Mouth, Daily, # 30 tablet, 0 Refills, Maintenance, 04/17/22 18:01:00 EDT, CR Tablet, [facility]/pharmacy #[id number], Partial fill upon patient request [...] Team Personnel Name: Thomas Lomax RN Position: [facility] ED RN W/OE and Tasks Member Role: Primary Care Nurse Name: Mandy Hightower RN Position: S RN Member Role: Primary Care Nurse Name: Akosua Moses RN Position: S RN Member Role: Primary Care Nurse Name: Michelle Zambrano RN Position: [facility] RN Member Role: Primary Care Nurse Name: Stacie Ortiz RN Position: [facility] SN RN Member Role: Primary Care Nurse Name: Nicole Alvarado RN Position: [facility] AMB Nurse Member Role: Primary Care Nurse Name: Saranya Muir RN Position: [facility] RN Member Role: Primary Care Nurse Name: David Gil RN Position: [facility] RN Member Role: Primary Care Nurse Name: Chirag Ramon JR, MD Position: Reference Physician Member Role: PCP Address: Address: [address] [place] [address] Name: Pau Olmedo RN Position: [facility] RN Member Role: Primary Care Nurse Name: Rodrigo Noel RN Position: [facility] RN Member Role: Primary Care Nurse Name: Ximena Constantino RN Position: [facility] SN RN Member Role: Primary Care Nurse Name: Kylie Wilde RN Position: [facility] RN Member Role: Primary Care Nurse Name: Domenica Ramirez RN Position: [facility] RN Member Role: Primary Care Nurse Name: Talita Roberts RN Position: [facility] RN Member Role: Primary Care Nurse Name: Klarissa Ko RN Position: [facility] RN Member Role: Primary Care Nurse Name: Ivette Osorio RN Position: [facility] RN Member Role: Primary Care Nurse Name: Alma Lott RN Position: [facility] SN RN Member Role: Primary Care Nurse Name: Elise Quick NP Position: [facility] Associate Professional Member Role: Lifetime Consulting Provider Address: Address: [address] [place] [address] [address] [facility] [place] [address]- Name: Eulalio Prado MD Position: [facility] Renal MD Member Role: Lifetime Consulting Physician Address: Address: [address] [place] [address] [address] [facility] [place] [address]- Name: Caroline Shirley RN Position: [facility] RN Member Role: Primary Care Nurse Name: Cori Landeros RN Position: [facility] RN Member Role: Primary Care Nurse Name: Chelle Ricardo RN Position: [facility] RN Member Role: Primary Care Nurse Name: Wolfgang Siddiqui RN Position: [facility] RN Member Role: Primary Care Nurse Name: Sigrid London RN Position: [facility] RN Member Role: Primary Care Nurse Name: Kelsi Kim RN Position: [facility] RN Member Role: Primary Care Nurse Name: Mireya Catherine RN Position: [facility] RN Member Role: Primary Care Nurse Name: Lizet Hilliard RN Position: [facility] RN Member Role: Primary Care Nurse Name: Magalie Grande RN Position: S RN Member Role: Primary Care Nurse Name: Josefina Leonard RN Position: [facility] SN RN Member Role: Primary Care Nurse Name: Prem Barrera MD Position: [facility] Renal MD Member Role: Lifetime Consulting Physician Address: Address: [address] [place] [address] [address] [facility] [address] Name: Alma Reyes RN Position: [facility] RN Member Role: Primary Care Nurse Name: Nayely Mercado RN Position: [facility] RN Member Role: Primary Care Nurse Name: Lata Hernandez RN Position: [facility] SN RN Member Role: Primary Care Nurse Name: Atul Molina MD Position: [facility] Renal MD Member Role: Lifetime Consulting Physician Address: Address: [address] [place] [address] [facility] [address] Name: Gema Jean Baptiste RN Position: [facility] RN Member Role: Primary Care Nurse Name: Esther Miller RN Position: [facility] RN Member Role: Primary Care Nurse Name: Siena Coleman RN Position: [facility] RN Member Role: Primary Care Nurse Name: Julia Alex RN Position: [facility] RN Member Role: Primary Care Nurse Name: Brandi Martinez RN Position: [facility] RN Member Role: Primary Care Nurse Name: Joann Moore RN Position: [facility] RN Member Role: Primary Care Nurse Name: Ramya Cook RN Position: [facility] Hospital Hand Assembler For Puller Over Member Role: Primary Care Nurse Care Team Related Persons Name: APRIL QUEZADA Name: AUGUSTO HARVEY Address: home [address] [place] [address]
--- OUTSIDE RECORDS SUMMARY | 2024-04-21 12:03 | XMS_ITS | Continuity of Care Document ---
Author Organization [facility] Address [address] [place] [address]- Care Team Providers Care Family Medicine Physician Assistant Name Role Phone Annemarie Alfred MD Primary Care Physician [phone] [place] [facility] [place]): [place]/24 [facility] [address] [place] [id number] Attending Physician: Hugh Quintana MD Admitting Physician: Hugh Quintana MD Referring Physician: Annemarie Alfred MD Allergies, Adverse Reactions, Alerts Substance Reaction Severity Status morphine anaphylaxis Severe Active gabapentin tardive dyskenesia Active propofol anaphylaxis Active Tomatoes Active Immunizations Given and Recorded Vaccine Date Status Refusal Reason SARS-CoV-2(COVID-19)mRNA-LNP vac([id number]) 09/08/23 Recorded influenza virus vaccine, inactivated 05/05/22 [...] Refills, Maintenance, 05/14/22 16:10:00 EDT, Tablet, [facility], Partial fill upon patient request if the prescription is for a schedule II opioid drug., 156, cm, 05/14/22 15:10:00... Start Date: 05/14/22 Status: Ordered aspirin 81 mg oral delayed release tablet 81 mg, By Mouth, Daily, # 30 tablet, Refills 0, Tot. Refills 0, Maintenance, 05/14/22 16:09:00 EDT,Route to Pharmacy Electronically, [facility], Partial fill upon patient request if the prescription is for a schedule II opioid drug., 15... Start Date: 05/14/22 Status: Ordered atorvastatin 80 mg oral tablet 1 tablet = 80 mg, By Mouth, Daily at bedtime, # 30 tablet, 0 Refills, Maintenance, 05/14/22 16:09:00 EDT, Tablet, [facility], Partial fill upon patient request if [...] 16:09:00 EDT, Route to Pharmacy Electronically, [facility], Partial fill upon patient request if [...] 04/11/24 12:53:00 EDT, 02/11/24 12:53:00 EDT, Tablet, [facility] Start Date: 02/11/24 Stop Date: 04/11/24 Status: Ordered ferrous sulfate 325 mg oral enteric coated tablet 325 mg, By Mouth, Every Wednesday, Wednesday and Wednesday, # 30 tablet, Refills 0, Tot. Refills 0, Maintenance, 05/14/22 16:09:00 EDT, Route to Pharmacy Electronically, [facility], Partial fill upon patient request if [...] Refills, Soft Stop, 09/01/23 15:31:00 EST, [facility]/pharmacy #[id number], Partial fill upon patient... Start Date: 09/01/23 Status: Ordered nitroglycerin 0.4 mg sublingual tablet 1 tablet = 0.4 mg, Sublingual, Every 5 minutes, PRN Chest Pain, 0 Refills, Maintenance, 05/14/22 7:11:00 EDT, Tablet, Partial fill upon patient request if the prescription is for a schedule II opioiddrug. Start Date: 05/14/22 Status: Ordered nystatin topical 155110 u/gm powder See Instructions, APPLY TO AFFECTED AREA TWICE A DAY TO THE SKIN FOLDS NEEDED, # 30 Gm, 0 Refills, [facility], 15, APPLY TO AFFECTED AREA TWICE A DAY TO THE SKIN FOLDS NEEDED, 155, cm, 06/03/21 10:30:00 EST, Height, 111.36, kg, 04/07/21 11:... Start Date: 09/30/21 Status: Ordered omeprazole 20 mg oral delayed release tablet 1 tablet = 20 mg, By Mouth, Daily, # 30 tablet, 0 Refills, Maintenance, 04/17/22 18:01:00 EDT, CR Tablet, [facility]/pharmacy #[id number], Partial fill upon patient [...] RN Position: [facility] ED RN W/OE and Tasks Member Role: Primary Care Nurse Name: Mandy Hightower RN Position: [facility] RN Member Role: Primary Care Nurse Name: Akosua Moses RN Position: [facility] RN Member Role: Primary Care Nurse Name: Michelle Zambrano RN Position: [facility] RN Member Role: Primary Care Nurse Name: Stacie Ortiz RN Position: [facility] SN RN Member Role: Primary Care Nurse Name: Nicole Alvarado RN Position: [facility] AMB Nurse Member Role: Primary Care Nurse Name: Saranya Muir RN Position: [facility] RN Member Role: Primary Care Nurse Name: David Gil RN Position: [facility] RN Member Role: Primary Care Nurse Name: Pau Olmedo RN Position: [facility] RN Member Role: Primary Care Nurse Name: Rodrigo Noel RN Position: [facility] RN Member Role: Primary Care Nurse Name: Ximena Constantino RN Position: [facility] SN RN Member Role: Primary Care Nurse Name: Kylie Wilde RN Position: [facility] RN Member Role: Primary Care Nurse Name: Domenica Ramirez RN Position: [facility] RN Member Role: Primary Care Nurse Name: Klarissa Ko RN Position: [facility] RN Member Role: Primary Care Nurse Name: Ivette Osorio RN Position: [facility] RN Member Role: Primary Care Nurse Name: Alma Lott RN Position: [facility] SN RN Member Role: Primary Care Nurse Name: Elise Quick NP Position: [facility] Associate Professional Member Role: Lifetime Consulting Provider Address: Address: [address] [facility] [facility] [address] [facility] [place] [place] [address]- [place] Name: Eulalio Prado MD Position: [facility] Renal MD Member Role: Lifetime Consulting Physician Address: Address: [address] [facility] [address] [facility] [place] [address]- [place] Name: Annemarie Alfred MD Position: Reference Physician Member Role: PCP Address: Address: [address] [place] [address]- [place] Name: Caroline Shirley RN Position: S RN Member Role: Primary Care Nurse Name: Chelle Ricardo RN Position: S RN Member Role: Primary Care Nurse Name: Kelsi Kim RN Position: S RN Member Role: Primary Care Nurse Name: Mireya Catherine RN Position: S RN Member Role: Primary Care Nurse Name: Lizet Hilliard RN Position: S RN Member Role: Primary Care Nurse Name: Josefina Leonard RN Position: [facility] SN RN Member Role: Primary Care Nurse Name: Prem Barrera MD Position: [facility] Renal MD Member Role: Lifetime Consulting Physician Address: Address: [address] [place] [address] [address] [facility] [place] [address]- Name: Alma Reyes RN Position: [facility] RN Member Role: Primary Care Nurse Name: Lata Hernandez RN Position: [facility] SN RN Member Role: Primary Care Nurse Name: Atul Molina MD Position: [facility] Renal MD Member Role: Lifetime Consulting Physician Address: Address: [address] [place] [address] [facility] [place] [address]- Name: Gema Jean Baptiste RN Position: [facility] RN Member Role: Primary Care Nurse Name: Esther Miller RN Position: S RN Member Role: Primary Care Nurse Name: Siena Coleman RN Position: S RN Member Role: Primary Care Nurse Name: Julia Alex RN Position: S RN Member Role: Primary Care Nurse Name: Brandi Martinez RN Position: S RN Member Role: Primary Care Nurse Name: Joann Moore RN Position: S RN Member Role: Primary Care Nurse Name: Ramya Cook RN Position: [facility] Security Systems Installer Member Role: Primary Care Nurse Care Team Related Persons Name: DAMIENAPRIL Name: HARVEY CASAS Address: home [address] [place] [id number]
--- OUTSIDE RECORDS SUMMARY | 2024-04-21 12:03 | XMS_ITS | Continuity of Care Document ---
Author Organization [facility] Address [address] [place] [id number]- Care Team Providers Care Manager Med Surg Name Role Phone Yenny ROSE MD, Chirag Olivo Primary Care Physici an Encounter [facility] ACCT R [id number] Date(s): 03/15/24 - 03/22/24 [facility] [address] [place], [place] [address] Attending Physician: Dutch Land DO Referring Physician: Katina Mills MD Allergies, Adverse Reactions, Alerts Substance Reaction Severity Status morphine anaphylaxis Severe Active propofol anaphylaxis Active gabapentin tardive dyskenesia Active Tomatoes mouth itch Active Immunizations Given and Recorded Vaccine Date Status Refusal Reason SARS-CoV-2(COVID-19)mRNA-LNP vac([id number]) 09/08/23 Recorded influenza virus vaccine, inactivated 05/05/22 [...] 03/21/24 16:28:00 EDT, Route to Pharmacy Electronically, [facility], Partial fill upon patient request if the prescription is for a schedule... Start Date: 03/21/24 Status: Ordered atorvastatin 80 mg oral tablet 1 tablet = 80 mg, By Mouth, Daily at bedtime, # 30 tablet, 0 Refills, Maintenance, 05/14/22 16:09:00 EDT, Tablet, [facility], Partial fill upon patient [...] 0 Refills, Maintenance, 03/21/24 16:26:00 EDT, Capsule, [facility], Partial fill [...] 04/11/24 12:53:00 EDT, 02/11/24 12:53:00 EDT, Tablet, [facility] Start Date: 02/11/24 Stop [...] Refills, Soft Stop, 09/01/23 15:31:00 EST, [facility]/pharmacy #[id number], Partial fill upon patient... Start Date: 09/01/23 Status: Ordered omeprazole 20 mg oral delayed release tablet 1 tablet = 20 mg, By Mouth, Daily, # 30 tablet, 0 Refills, Maintenance, 04/17/22 18:01:00 EDT, CR Tablet, [facility]/pharmacy #[id number], Partial fill upon patient request if the prescription is for a schedule II opioid drug., 158, cm, 04/17/22 16:11:00 EDT, [facility]... Start Date: 04/17/22 Status: Ordered oxyCODONE 15 mg oral tablet See Instructions, PRN as needed for pain, 1 tablet By Mouth Every 4-6 hours, # 42 tablet, 0 Refills, Acute 03/28/24 16:27:00 EDT, 03/21/24 16:26:00 EDT, Tablet, [facility], Partial fillupon patient request if the prescription is for a s... Start Date: 03/21/24 Stop Date: 03/28/24 Status: Ordered oxyCODONE 5 mg oral capsule [...] opioid drug. Start Date: 09/24/21 Status: Ordered Tylenol 325 mg oral tablet 975 mg, By Mouth, 3 times a day, # 60 tablet, Refills 0, Tot. Refills 0, Acute 03/28/24 16:25:00 EDT, 03/21/24 16:25:00 EDT, Route to Pharmacy Electronically, [facility], Partial fill upon patient request if the prescription is for a esthela... Start Date: 03/21/24 Stop Date: 03/28/24 Status: Ordered Problem List Condition Confirmation Course [...] Sleep apnea Confirmed Active 1Seen on CT Procedures Procedure Date Related Diagnosis Body Site Status Debridement RLE 1 04/2022 Complet ed Debridement/Screw removal RLE 2 10/2021 Completed Debridement/Tract excision RLE 3 02/2021 Completed Debridement-left leg 4 10/2020 Co mpleted Incision and drainage of rig ht thigh surgical site, removal and replacement of polymethyl methacrylate antibiotic loaded drug delivery implants. 5 09/2020 Completed Left lower extremity wound w ashout, primary repair, LONG Drain placement x4, wound vac placement. 6 09/2020 Completed Cataract surgery of both eyes Completed Cholecystectomy Completed Hysterectomy Completed ORIF -right femur 7 Compl eted TMJ (temporomandibular joint) Surgery Completed 1Debridement of right thigh deep space complex abscess Removal od drug delivery device deep Placement and preparation of drug deliver device deep. 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 4Negative pressure wound therapy (eg, vacuum assisted drainage collection), utilizing durable medical equipment (DME), including topical application(s), wound assessment, and instruction(s) for ongoing care, per session; total wound(s) surface area greater (87699) performed by Chandrika Conn MD on 10/25/2020 at 60 Years. Comments: 10/25/2020 13:43 EDT - Chandrika Conn MD wound to left lateral leg, knee and medial leg after excisional debridement of approx 40cm3 skin and soft tissue closure of portion of wounds totalling 25cm - simple. 5Incision and drainage of right thigh surgical site, removal and replacement of polymethyl methacrylate antibiotic loaded drug delivery implants. 6Left lower extremity wound washout, primary repair, LONG Drain placement x4, wound vac placement. 7Debridement of right thigh wound including bone associated with open fracture, closed treatment of right patellar fracture without manipulation. Open reduction and internal fixation of right supracondylar femur fracture with plate and screws, placement of one non-biodegradable drug delivery implant, right thigh at fracture site. Vital Signs Most recent to oldest [Reference Range]: 1 Height 158 cm (03/15/24 9:47 AM) Weight 125.1 kg (03/15/24 9:47 AM) Oxygen Saturation [94-100 %] 96 % (03/15/24 9:47 AM) Pulse Rate [55-90 bpm] 71 bpm (03/15/24 9:47 AM) Body Mass Index [18.5-24.99 kg/m2] 50.11 kg/m2 *>HHI* (03/15/24 9:47 AM) Blood Pressure [90-138/55-84 mm Hg] 160/ 65mm Hg *H* (03/15/24 9:47 AM) Respiratory Rate [16-30 br/min] 20 br/mi n (03/15/24 9:47 AM) Liters per Minute 3 L/min (03/15/24 9:47 AM) Mode of Delivery (Oxygen) Nasal cannula (03/15/24 9:47 AM) Blood pressure sites Arm, left (03/15/24 9:47 AM) Weight Obtained Via Standing scale (03/15/24 9:47 AM) Social History Social History Type Response Smoking Status Former smoker, quit more than 30 days ago; Other: quit x 1 yr; 0.5-1ppd x 30 yrs; entered on: 05/22/21 Sex Patient Care team information Care Team Personnel Name: Thomas Lomax RN Position: [facility] ED RN W/OE and Tasks Member Role: Primary Care Nurse Name: Mandy Hightower RN Position: [facility] RN Member Role: Primary Care Nurse Name: Akosua Moses RN Position: [facility] RN Member Role: Primary Care Nurse Name: Michelle Zambrano RN Position: [facility] RN Member Role: Primary Care Nurse Name: Stacie Ortiz RN Position: [facility] SN RN Member Role: Primary Care Nurse Name: Nicole Alvarado RN Position: [facility] AMB Nurse Member Role: Primary Care Nurse Name: Saranya Muir RN Position: [facility] RN Member Role: Primary Care Nurse Name: David Gil RN Position: [facility] RN Member Role: Primary Care Nurse Name: Chirag Ramon JR, MD Position: Reference Physician Member Role: PCP Address: Address: [address] [place] [address] Name: Pau Olmedo RN Position: [facility] RN Member Role: Primary Care Nurse Name: Rodrigo Noel RN Position: [facility] RN Member Role: Primary Care Nurse Name: Ximena Constantino RN Position: [facility] SN RN Member Role: Primary Care Nurse Name: Kylie Wilde RN Position: [facility] RN Member Role: Primary Care Nurse Name: Domenica Ramirez RN Position: [facility] RN Member Role: Primary Care Nurse Name: Talita Roberts RN Position: [facility] RN Member Role: Primary Care Nurse Name: Klarissa Ko RN Position: [facility] RN Member Role: Primary Care Nurse Name: Ivette Osorio RN Position: [facility] RN Member Role: Primary Care Nurse Name: Alma Lott RN Position: [facility] SN RN Member Role: Primary Care Nurse Name: Elise Quick NP Position: [facility] Associate Professional Member Role: Lifetime Consulting Provider Address: Address: [address] [place], [place] [address] [place] [address]- Name: Eulalio Prado MD Position: [facility] Renal MD Member Role: Lifetime Consulting Physician Address: Address: [address] [place] [address] [address] [facility] [place] [address]- Name: Caroline Shirley RN Position: [facility] RN Member Role: Primary Care Nurse Name: Cori Landeros RN Position: [facility] RN Member Role: Primary Care Nurse Name: Chelle Ricardo RN Position: [facility] RN Member Role: Primary Care Nurse Name: Wolfgang Siddiqui RN Position: [facility] RN Member Role: Primary Care Nurse Name: Sigrid London RN Position: [facility] RN Member Role: Primary Care Nurse Name: Kelsi Kim RN Position: [facility] RN Member Role: Primary Care Nurse Name: Mireya Catherine RN Position: [facility] RN Member Role: Primary Care Nurse Name: Lizet Hilliard RN Position: [facility] RN Member Role: Primary Care Nurse Name: Magalie Grande RN Position: S RN Member Role: Primary Care Nurse Name: Josefina Leonard RN Position: [facility] SN RN Member Role: Primary Care Nurse Name: Prem Barrera MD Position: [facility] Renal MD Member Role: Lifetime Consulting Physician Address: Address: [address] [place] [address] [facility] [address] Name: Alma Reyes RN Position: [facility] RN Member Role: Primary Care Nurse Name: Nayely Mercado RN Position: [facility] RN Member Role: Primary Care Nurse Name: Lata Hernandez RN Position: [facility] SN RN Member Role: Primary Care Nurse Name: Atul Molina MD Position: [facility] Renal MD Member Role: Lifetime Consulting Physician Address: Address: [address] [place] [address] [facility] [address] Name: Gema Jean Baptiste RN Position: [facility] RN Member Role: Primary Care Nurse Name: Esther Miller RN Position: [facility] RN Member Role: Primary Care Nurse Name: Siena Coleman RN Position: [facility] RN Member Role: Primary Care Nurse Name: Julia Alex RN Position: [facility] RN Member Role: Primary Care Nurse Name: Brandi Martinez RN Position: [facility] RN Member Role: Primary Care Nurse Name: Joann Moore RN Position: [facility] RN Member Role: Primary Care Nurse Name: Ramya Cook RN Position: [facility] Hospital Dope House Operator Helper Member Role: Primary Care Nurse Care Team Related Persons Name: APRIL QUEZADA Name: HARVEY CASAS Address: [address] [place] [address]
--- OUTSIDE RECORDS SUMMARY | 2024-04-21 12:03 | XMS_ITS | Continuity of Care Document ---
Author Organization [facility] Address [address] [place] [address]- Care Team Providers Care Billet Straightener Name Role Phone Annemarie Alfred MD Primary Care Physician Encounter [facility] Date(s): 02/09/24 - 03/10/24 [facility] [address] [place] [id number] Allergies, Adverse Reactions, Alerts Substance Reaction Severity Status morphine anaphylaxis Severe Active propofol anaphylaxis Active gabapentin tardive dyskenesia Active Tomatoes Active Immunizations Given and Recorded Vaccine Date Status Refusal Reason SARS-CoV-2(COVID-19)mRNA-LNP vac([id number]) 09/08/23 Recorded influenza virus vaccine, inactivated 05/05/22 [...] 0 Refills, Maintenance, 05/14/22 16:10:00 EDT, Tablet, [facility], Partial fill upon patient request if the prescription is for a schedule II opioid drug., 156, cm, 05/14/22 15:10:00... Start Date: 05/14/22 Status: Ordered aspirin 81 mg oral delayed release tablet 81 mg, By Mouth, Daily, # 30 tablet, Refills 0, Tot. Refills 0, Maintenance, 05/14/22 16:09:00 EDT,Route to Pharmacy Electronically, [facility], Partial fill upon patient request if the prescription is for a schedule II opioid drug., 15... Start Date: 05/14/22 Status: Ordered atorvastatin 80 mg oral tablet 1 tablet = 80 mg, By Mouth, Daily at bedtime, # 30 tablet, 0 Refills, Maintenance, 05/14/22 16:09:00 EDT, Tablet, [facility] 3, Partial fill upon patient request [...] 05/14/22 16:09:00 EDT, Route to Pharmacy Electronically, [facility], Partial fill upon patient [...] 04/11/24 12:53:00 EDT, 02/11/24 12:53:00 EDT, Tablet, [facility] Start Date: 02/11/24 Stop Date: 04/11/24 Status: Ordered ferrous sulfate 325 mg oral enteric coated tablet 325 mg, By Mouth, Every Wednesday, Wednesday and Wednesday, # 30 tablet, Refills 0, Tot. Refills 0, Maintenance, 05/14/22 16:09:00 EDT, Route to Pharmacy Electronically, [facility], Partial fill upon patient [...] 0 Refills, Soft Stop, 09/01/23 15:31:00 EST, [facility]/pharmacy #[id number], Partial fill upon patient... Start Date: 09/01/23 Status: Ordered nitroglycerin 0.4 mg sublingual tablet 1 tablet = 0.4 mg, Sublingual, Every 5 minutes, PRN Chest Pain, 0 Refills, Maintenance, 05/14/22 7:11:00 EDT, Tablet, Partial fill upon patient request if the prescription is for a schedule II opioiddrug. Start Date: 05/14/22 Status: Ordered nystatin topical [id number] u/gm powder See Instructions, APPLY TO AFFECTED AREA TWICE A DAY TO THE SKIN FOLDS NEEDED, # 30 Gm, 0 Refills, [facility], 15, APPLY TO AFFECTED AREA TWICE A [...] Team Personnel Name: Thomas Lomax RN Position: [facility] ED RN W/OE and Tasks Member Role: Primary Care Nurse Name: Mandy Hightower RN Position: [facility] RN Member Role: Primary Care Nurse Name: Akosua Moses RN Position: [facility] RN Member Role: Primary Care Nurse Name: Michelle Zambrano RN Position: [facility] RN Member Role: Primary Care Nurse Name: Stacie Ortiz RN Position: [facility] SN RN Member Role: Primary Care Nurse Name: Nicole Alvarado RN Position: [facility] AMB Nurse Member Role: Primary Care Nurse Name: Saranya Muir RN Position: [facility] RN Member Role: Primary Care Nurse Name: David Gil RN Position: [facility] RN Member Role: Primary Care Nurse Name: Pau Olmedo RN Position: [facility] RN Member Role: Primary Care Nurse Name: Rodrigo Noel RN Position: [facility] RN Member Role: Primary Care Nurse Name: Ximena Constantino RN Position: [facility] SN RN Member Role: Primary Care Nurse Name: Kylie Wilde RN Position: [facility] RN Member Role: Primary Care Nurse Name: Domenica Ramirez RN Position: [facility] RN Member Role: Primary Care Nurse Name: Klarissa Ko RN Position: [facility] RN Member Role: Primary Care Nurse Name: Ivette Osorio RN Position: [facility] RN Member Role: Primary Care Nurse Name: Alma Lott RN Position: [facility] SN RN Member Role: Primary Care Nurse Name: Elise Quick NP Position: [facility] Associate Professional Member Role: Lifetime Consulting Provider Address: Address: [address] [place] [address] [address] [facility] [place], [place] [address] Name: Eulalio Prado MD Position: [facility] Renal MD Member Role: Lifetime Consulting Physician Address: Address: [address] [facility] [address] [facility] [place] [address]- Name: Annemarie Alfred MD Position: Reference Physician Member Role: PCP Address: Address: [address] [place] [address]- [place] Name: Caroline Shirley RN Position: [facility] RN Member Role: Primary Care Nurse Name: Chelle Ricardo RN Position: [facility] RN Member Role: Primary Care Nurse Name: Kelsi Kim RN Position: [facility] RN Member Role: Primary Care Nurse Name: Mireya Catherine RN Position: [facility] RN Member Role: Primary Care Nurse Name: Lizet Hilliard RN Position: [facility] RN Member Role: Primary Care Nurse Name: Josefina Leonard RN Position: [facility] SN RN Member Role: Primary Care Nurse Name: Prem Barrera MD Position: [facility] Renal MD Member Role: Lifetime Consulting Physician Address: Address: [address] [place] [address] [address] [facility] [place] [address]- Name: Alma Reyes RN Position: [facility] RN Member Role: Primary Care Nurse Name: Lata Hernandez RN Position: [facility] SN RN Member Role: Primary Care Nurse Name: Atul Molina MD Position: [facility] Renal MD Member Role: Lifetime Consulting Physician Address: Address: [address] [place] [address] [facility] [place] [address]- Name: Gema Jean Baptiste RN Position: [facility] RN Member Role: Primary Care Nurse Name: Esther Miller RN Position: [facility] RN Member Role: Primary Care Nurse Name: Siena Coleman RN Position: [facility] RN Member Role: Primary Care Nurse Name: Julia Alex RN Position: [facility] RN Member Role: Primary Care Nurse Name: Brandi Martinez RN Position: [facility] RN Member Role: Primary Care Nurse Name: Joann Moore RN Position: [facility] RN Member Role: Primary Care Nurse Name: Ramya Cook RN Position: [facility] Hospital Linen Room Worker Member Role: Primary Care Nurse Care Team Related Persons Name: DAMIEN APRIL Name: HARVEY CASAS Address: home [address] [place] [address]
--- OUTSIDE RECORDS SUMMARY | 2024-04-21 12:03 | XMS_ITS | Continuity of Care Document ---
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 Start Date: 05/14/22 Status: Ordered aspirin 81 mg oral delayed release tablet 81 mg, By Mouth, Daily, # 30 tablet, Refills 0, Tot. Refills 0, Maintenance, 05/14/22 16:09:00 EDT,Route to Pharmacy Electronically, [facility], Partial fill upon patient request if the prescription is for a schedule II opioid drug., 15... Start Date: 05/14/22 Status: Ordered atorvastatin 80 mg oral tablet 1 tablet = 80 mg, By Mouth, Daily at bedtime, # 30 tablet, 0 Refills, Maintenance, 05/14/22 16:09:00 EDT, Tablet, [facility], Partial fill upon patient request [...] 05/14/22 16:09:00 EDT, Route to Pharmacy Electronically, [facility], Partial fill upon patient request [...] 04/11/24 12:53:00 EDT, 02/11/24 12:53:00 EDT, Tablet, [facility]... Start Date: 02/11/24 Stop Date: 04/11/24 Status: Ordered ferrous sulfate 325 mg oral enteric coated tablet 325 mg, By Mouth, Every Wednesday, Wednesday and Wednesday, # 30 tablet, Refills 0, Tot. Refills 0, Maintenance, 05/14/22 16:09:00 EDT, Route to Pharmacy Electronically, [facility], Partial fill upon patient request [...] Stop, 09/01/23 15:31:00 EST, [facility]/pharmacy #[id number], Partial fill upon patient... Start Date: 09/01/23 Status: Ordered nitroglycerin 0.4 mg sublingual tablet 1 tablet = 0.4 mg, Sublingual, Every 5 minutes, PRN Chest Pain, 0 Refills, Maintenance, 05/14/22 7:11:00 EDT, Tablet, Partial fill upon patient request if the prescription is for a schedule II opioiddrug. Start Date: 05/14/22 Status: Ordered nystatin topical 287218 u/gm powder See Instructions, APPLY TO AFFECTED AREA TWICE A DAY TO THE SKIN FOLDS NEEDED, # 30 Gm, 0 Refills, [facility], 15, APPLY TO AFFECTED AREA TWICE A [...] Team Personnel Name: Thomas Lomax RN Position: [facility] ED RN W/OE and Tasks Member Role: Primary Care Nurse Name: Mandy Hightower RN Position: [facility] RN Member Role: Primary Care Nurse Name: Akosua Moses RN Position: [facility] RN Member Role: Primary Care Nurse Name: Michelle Zambrano RN Position: [facility] RN Member Role: Primary Care Nurse Name: Stacie Ortiz RN Position: [facility] SN RN Member Role: Primary Care Nurse Name: Nicole Alvarado RN Position: [facility] RN Member Role: Primary Care Nurse Name: Saranya Muir RN Position: [facility] RN Member Role: Primary Care Nurse Name: David Gil RN Position: [facility] RN Member Role: Primary Care Nurse Name: Pau Olmedo RN Position: [facility] RN Member Role: Primary Care Nurse Name: Rodrigo Noel RN Position: [facility] RN Member Role: Primary Care Nurse Name: Ximena Constantino RN Position: [facility] SN RN Member Role: Primary Care Nurse Name: Kylie Wilde RN Position: [facility] RN Member Role: Primary Care Nurse Name: Domenica Ramirez RN Position: [facility] RN Member Role: Primary Care Nurse Name: Klarissa Ko RN Position: [facility] RN Member Role: Primary Care Nurse Name: Ivette Osorio RN Position: [facility] RN Member Role: Primary Care Nurse Name: Alma Lott RN Position: [facility] SN RN Member Role: Primary Care Nurse Name: Elise Quick NP Position: [facility] Associate Professional Member Role: Lifetime Consulting Provider Address: Address: [address] [place], [place] [address] [place] [address]- [place] Name: Eulalio Prado MD Position: [facility] Renal MD Member Role: Lifetime Consulting Physician Address: Address: [address] [facility] [address] [facility] [place] [address]- Name: Annemarie Alfred MD Position: Reference Physician Member Role: PCP Address: Address: [address] [place] [address]- [place] Name: Caroline Shirley RN Position: [facility] RN Member Role: Primary Care Nurse Name: Chelle Ricardo RN Position: [facility] RN Member Role: Primary Care Nurse Name: Kelsi Kim RN Position: [facility] RN Member Role: Primary Care Nurse Name: Mireya Catherine RN Position: [facility] RN Member Role: Primary Care Nurse Name: Lizet Hilliard RN Position: [facility] RN Member Role: Primary Care Nurse Name: Josefina Leonard RN Position: [facility] SN RN Member Role: Primary Care Nurse Name: Prem Barrera MD Position: [facility] Renal MD Member Role: Lifetime Consulting Physician Address: Address: [address] [place] [address] [address] [facility] [place] [address]- Name: Alma Reyes RN Position: [facility] RN Member Role: Primary Care Nurse Name: Lata Hernandez RN Position: [facility] Bleaching Machine Operator Member Role: Primary Care Nurse Name: Atul Molina MD Position: [facility] Renal MD Member Role: Lifetime Consulting Physician Address: Address: [address] [place] [address] [facility] [place] [address]- Name: Gema Jean Baptiste RN Position: [facility] RN Member Role: Primary Care Nurse Name: Esther Miller RN Position: [facility] RN Member Role: Primary Care Nurse Name: Siena Coleman RN Position: [facility] RN Member Role: Primary Care Nurse Name: Julia Alex RN Position: [facility] RN Member Role: Primary Care Nurse Name: Brandi Martinez RN Position: [facility] RN Member Role: Primary Care Nurse Name: Joann Moore RN Position: [facility] RN Member Role: Primary Care Nurse Name: Ramya Cook RN Position: [facility] Bleaching Machine Operator Member Role: Primary Care Nurse Care Team Related Persons Name: DAMIEN APRIL Name: HARVEY CASAS Address: home [address] [place] [place] [id number]
--- OUTSIDE RECORDS SUMMARY | 2024-04-21 12:03 | XMS_ITS | Continuity of Care Document ---
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 his vision. CV: Denies CP, palpitations, edema or orthopnea. PULM: Denies any SOB, wheezing, endorses cough with clear sputum. ??States that this happens frequently with allergies?? ABD: Denies any abdominal pain, N/V/D, heartburn. ??Denies any changes to bowel habits or stool character.?? : Denies dysuria, polyuria, or hematuria. EXT: Denies any joint pain, stiffness, numbness or tingling.?? PSYCH: Denies any depression or anxiety. Objective Vital Signs?? Temperature: 98.5 DegF (03/17/24 16:03:00) Temperature Route: Oral (03/17/24 16:03:00) Pulse Rate: 60 bpm (03/17/24 16:03:00) Heart Rate Monitored: 58 bpm (03/17/24 15:00:00) Respiratory Rate: 18 br/min (03/17/24 16:03:00) Vented: No (03/17/24 14:30:00) Systolic Blood Pressure: 125 mm Hg (03/17/24 16:03:00) Diastolic Blood Pressure:??53 mm Hg??Low (03/17/24 16:03:00) Blood pressure sites: Arm, left (03/17/24 16:03:00) Mean Arterial Pressure: 77 mm Hg (03/17/24 16:03:00) Pulse Pressure: 72 mm Hg (03/17/24 16:03:00) Oxygen Saturation:??93 %??Low (03/17/24 16:03:00) Liters per Minute: 4 L/min (03/17/24 16:03:00) Mode of Delivery (Oxygen): Nasal cannula (03/17/24 16:03:00) FiO2: 50 % (03/17/24 12:45:00) Early Warning Score: 2 (03/17/24 16:11:24) ? Intake/Output? 03/17 06:00 03/17 07:00 03/16 07:00 03/15 07:00 03/14 07:00 ?? 03/17 17:00 03/17 17:00 03/17 06:59 03/16 06:59 03/15 06:59 Intake ?220 ?220 ?0 ?0 ?0 Output ?0 ?0 ?0 ?0 ?0 Net Total ?220 ?220 ?0 ?0 ?0 ? Physical Exam ?? General Appearance: Middle-aged female, no acute distress, appears comfortable, she has a wound VAC on her??right leg, she is on 3 L nasal cannula Eyes: EOMI. MAEVE. No scleral icterus. ENT: ??MM moist. Dentition intact. No erythema or exudates on throat.? Cardiovascular: RRR S1 and S2 heard with no M/R/G. No JVD. Respiratory:??Scattered expiratory wheezing heard. Good air movement throughout both lungs. GI: Soft. Nontender and nondistended. Normal bowel sounds present throughout abdomen. ??No rebound tenderness or other findings suggestive of an acute abdomen.?? MS:??Bilateral lower extremity edema, right greater than left with chronic venous stasis dermatitischanges. ??There is a small ulcer, about 1 cm??in diameter on lateral aspect of left leg with mild??purulence seen. Peripheral sensation intact. No spinal or paraspinal tenderness. ??No CVA tenderness. Skin:??No rashes seen on chest, abdomen, or back. ? Neuro: ??No slurred speech.?? Moving all 4 extremities spontaneously Psych: Alert and oriented x3. Appropriate and pleasant.?? Lines: Peripheral IV in place.?? Assessment/Plan Diagnoses Anemia ??(D64.9) Atrial fibrillation ??(I48.91) COPD exacerbation ??(J44.1) Chronic osteomyelitis ??(M86.60) Hypertension ??(I10) Opioid use disorder ??(F11.90) Sleep apnea ??(G47.30) ?? Assessment:??This is a 64-year-old female with a past medical history of hypertension, obesity hypoventilation syndrome, opioid use disorder, hypoxic respiratory failure, severe obesity, sleep apnea on BiPAP nightly, COPD on 3-4 L home O2, A-fib, GERD, chronic osteomyelitis with sinus tract on right femur, morbid obesity who is status post removal of right thigh subcutaneous drug delivery device,debridement of right thigh wound and placement of negative pressure wound VAC dressing on right thigh wound today. ?? Medicine consultation has been requested to assist in management of her chronic medical conditions. ?? COPD???continue home inhalers, as needed DuoNebs added.?? Mild expiratory wheezing auscultated on exam.?? Continue 3-4 L??O2. ??O2 sat goal 80-92%.?? Incentive spirometry every 2 hours while awake ?? Chronic osteomyelitis (M86.60):??Continue doxycycline.??She is status post removal of right thigh subcutaneous drug delivery device, debridement of right thigh wound and placement of negative pressure wound VAC dressing on right thigh wound today. ID follow up. ??On stress dose??steroids??postoperatively ?? Atrial fibrillation (I48.91):??Not on anticoagulation currently due to h/o hematoma.??Continue diltiazem 240 mg a day.??Telemonitoring for 24 hours recommended??postop ?? Opioid use disorder (F11.90):??Suboxone 4 mg - 1 mg film every 6 hours.??As needed naloxone available to use.??Can go up on oxycodone to 10 mg every 4???6 hours as needed for moderate pain.??May use as needed IV Dilaudid for severe pain, ?? Anemia (D64.9):??Anemia at baseline, recheck hemoglobin tomorrow morning ?? Sleep apnea (G47.30):??BiPaP /?? During nap time and bedtime ?? Wound on left leg???small wound about 1 cm in diameter??on lateral aspect of left leg.?? Consider wound care evaluation. ??Does not seem to be infected. ??Patient states that this has??been progressively getting better ?? Hypertension (I10):? On lisinopril 60 mg a day?.??Currently held, BP soft, okay to continue diltiazem only.??Cardiac diet, may resume at discharge if BP elevated ?? VTE Prophylaxis:??Prophylactic Lovenox ?VTE Prophylaxis Assessment:??VTE Prophylaxis Ordered ?? Rest of the care per primary team???orthopedics Thank you for allowing us to participate in this patient's care. Please feel free to call us with any questions or concerns Medicine team will follow along. ? Histories Allergies Allergies ?(Active and Proposed Allergies Only) propofol? (Severity: Unknown severity, Onset: Unknown) ?Reactions: anaphylaxis morphine? (Severity: Severe, Onset: Unknown) ?Reactions: anaphylaxis, unknown gabapentin? (Severity: Unknown severity, Onset: Unknown) ?Reactions: tardive dyskenesia Tomatoes? (Severity: Unknown severity, Onset: Unknown) ?Reactions: mouth itch ? Past Medical History/Problem List Active Problems(15) Atrial fibrillation Bacteremia due to Gram-positive bacteria Bone fracture Chronic pain Enterococcus faecalis infection Hardware complicating wound infection HH (hiatus hernia) HTN (hypertension) Metabolic alkalosis with respiratory acidosis Obesity hypoventilation syndrome Open leg wound/ LLE Opioid use disorder, severe, in sustained remission Respiratory failure with hypoxia Severe obesity Sleep apnea ? Past Surgical History Debridement RLE: 04/2022 Debridement/Screw removal RLE: 10/2021 Debridement/Tract excision RLE: 02/2021 Debridement-left le10/2020 Negative pressure wound therapy (eg, vacuum assisted drainage collection), utilizing durable medical equipment (DME), including topical application(s), wound assessment, and instruction(s) for ongoing care, per session; total wound(s) surface area greater: 10/25/20 Incision and drainage of right thigh surgical site, removal and replacement of polymethyl methacrylate antibiotic loaded drug delivery implants.: 09/2020 Left lower extremity wound washout, primary repair, LONG Drain placement x4, wound vac placement.: 09/2020 Cholecystectomy TMJ (temporomandibular joint) Surgery ORIF -right femur Cataract surgery of both eyes Hysterectomy ? Social History Alcohol Details:??Use: Past. Substance Abuse Details:??Use: Past. Tobacco Details:??Use: Former smoker, quit more than 30 days ago. ??Other: quit x 1 yr; 0.5-1ppd x 30 yrs. Details:??Use: Former smoker, quit more than 30 days ago. ??Other: 40 years ago. Electronic Cigarette/Vaping Details:??Electronic Cigarette Use: Never. ? Family History Unable to Obtain Family History. ? Medications Home Medications Acetaminophen (acetaminophen 500 mg oral capsule)?1?capsule?500?Milligram?By Mouth?2 times a day Atorvastatin (atorvastatin 80 mg oral tablet)?1?tab(s)?80?Milligram?By Mouth?Daily at bedtime Buprenorphine (buprenorphine 2 mg sublingual tablet, disintegrating)?2?tab(s)?4?Milligram?Sublingual?4 times a day Clonazepam (clonazePAM 0.5 mg oral tablet)?1?tab(s)?0.5?Milligram?By Mouth?Daily?as needed?Anxiety?for 3?Days Clonazepam?1?Milligram?By Mouth?Daily Clonazepam?0.5?Milligram?By Mouth?2 times a day?as needed?anxiety Diltiazem (DilTIAZem (Eqv-Tiazac) 240 mg/24 hours oral cap, extended release)?1?capsule?240?Milligram?By Mouth?Daily Doxycycline (doxycycline monohydrate 100 mg oral tablet)?100?Milligram?By Mouth?Every 12 hours?for 30?Days?MAke sure patient is upright 2 hours after ingestion and drink plenty of water when administering fluticasone/umeclidinium/vilanterol (Trelegy Ellipta 200 mcg-62.5 mcg-25 mcg/inh inhalation powder)?1?puff(s)?Inhalation?Daily?at the same time every day Lisinopril?60?Milligram?By Mouth?Daily nalOXONE (Narcan 4 mg/0.1 mL nasal spray)?4?Milligram?Naris, Left?Once?as needed?Other?To reverse opioid overdose, may repeat every 2 to 3 minutes until patient responds, call 911 in the meantime Omeprazole (omeprazole 20 mg oral delayed release tablet)?1?tab(s)?20?Milligram?By Mouth?Daily Oxycodone (oxyCODONE 5 mg oral capsule)?2?capsule?10?Milligram?By Mouth?Every 4 hours?as needed?Pain , Moderate Temazepam (temazepam 15 mg oral capsule)?TAKE 2 CAPSULES (30 MG TOTAL) BY MOUTH NIGHTLY AT BEDTIME NEEDED. Theophylline (theophylline 400 mg/24 hours oral tablet, extended release)?1?tab(s)?400?Milligram?By Mouth?Daily ? Results Recent Labs BLOOD COUNT & DIFF WBC 11.8 k/mm3 (High)?? 03/17/2024 14:50 RBC 3.35 m/mm3 (Low)?? 03/17/2024 14:50 Hgb 8.4 Gm/dL (Low)?? 03/17/2024 14:50 Hct 28.2 % (Low)?? 03/17/2024 14:50 MCV 84.2 femtoliters ()?? 03/17/2024 14:50 MCH 25.1 pg (Low)?? 03/17/2024 14:50 MCHC 29.8 g/dL (Low)?? 03/17/2024 14:50 Platelet Count 212 k/mm3 ()?? 03/17/2024 14:50 RDW-SD 47.3 femtoliters (High)?? 03/17/2024 14:50 MPV 9.9 femtoliters ()?? 03/17/2024 14:50 Nucleated RBC (Automated) 0.0 #/100 WBC'S ()?? 03/17/2024 14:50 Abs. NRBC 0.0 k/mm3 ()?? 03/17/2024 14:50 ?? CHEM GENERAL Sodium 138 mmol/L ()?? 03/17/2024 14:50 Potassium 4.9 mmol/L ()?? 03/17/2024 14:50 Chloride 98 mmol/L ()?? 03/17/2024 14:50 Bicarbonate Level 34 mmol/L (High)?? 03/17/2024 14:50 Anion Gap 6 ()?? 03/17/2024 14:50 BUN 20 mg/dL ()?? 03/17/2024 14:50 Creatinine-Blood 0.88 mg/dL ()?? 03/17/2024 14:50 Estimated GFR Creatinine 74 ML/MIN/1.73 M2 ()?? 03/17/2024 14:50 ?? URINE OTHER Est Creatinine Clearance 51.30 mL/min ()?? 03/17/2024 15:55 ? Urinalysis Est Creatinine Clearance: 51.3 mL/min (15:55) ? History and physical note * Event Display: History and Physical Hospital Authored Date: Hospital Progress note * William Marie RN: PERFORM, SIGN, VERIFY Event Display: Progress Note Hospital Authored Date: Patient: REID CHAUDHARY Age: 64 years Sex: Female : 1960 Associated Diagnoses: None Author: William Marie RN Findings Nursing Data Cardiac Data. : Cardiac Data. 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 Integumentary Data. : Integumentary Data. 03/22/2024 13:55 EDT Integumentary WNL except Leg Right Lateral, Upper Skin Abnormality Type: Surgical incision Wound Assessment Activity: Reassessment Wound Dressing: Wound Vac, Other: surrounded by swetha wrap . Evaluation [employer] Equipment Operator's first contact with Ms. Chaudhary this morning; she is alert and oriented times 4. Her respirations are even and unlabored, at rest, speaking in complete sentences. Oxycodone given for pain withgood effect. She declines Suboxone. Her questions answered. She is awaiting discharge this afternoon after Vancomycin infusion complete. See i-view for full assessment.. * Montserrat Song RN: PERFORM, MODIFY, MODIFY, SIGN, VERIFY Event Display: Progress Note Hospital Authored Date: [id number] Patient: REID CHAUDHARY Age: 64 years Sex: Female : 1960 Associated Diagnoses: None Author: Montserrat Song RN Findings Problem Related to Alteration in Musculoskeletal : Alteration in Musculoskeletal Func/new 03/22/2024 3:00 EDT Alteration in Musculoskeletal Related to Mobility, Orthopedic Procedure, Other: R thigh I&D w/ woundvac placement & hardware removal 03/17 w/ Dr. Mills Goals & Outcomes, Musculoskeletal Affected extremity will [...] ambulation status, monitor Color/Motion/Sensation, Assist with repositioning, Notify MD immediately if tissue perfusion deteriorates, Teach pt/caregiver on use of pain scale, Teach Pt/caregiver techniques to increase mobility, Teach Pt/caregiver on safety precautions BH Goals/Interventions, Musculoskeletal Yes Musculoskeletal, Problem Start 03/17/2024 18:54 Reviewed Plan with, Musculoskeletal Patient Patient Progression, Musculoskeletal Pt progressing according to plan . Evaluation P: Alteration in Musculoskeletal I: See Interventions listed above E: s/p I&D with Dr. Mills 03/17. Pt is OOB WBAT. A&O x4. On 3L NC at rest and 4L NC when ambulating with walker. Pt urinating clear yellow urine. Elastic SWETHA wrap drsg to right thigh, +PP, +CMS, +DF/PF. Denied any numbness, tingling or burning. Wound vac set at -125 and draining scant amount of serosanguineous fluid. Pt on Lovenox for DVT prophylaxis. No c/o N/V, dizziness, cough, chest p ain. Stated 8/10 right leg pain, received oxycodone 15mg, +effect with prn pain medication, rest and repositioning Pt refused Suboxone is pm and am, beause of effect on pain medication. Call light within reach. Bed in lowest position. . Discharge Information Case Management Discharge Plan : Case Management Discharge Plan Data 03/20/2024 13:25 EDT Discharge Level of Care at Discharge Not Done: Assessed, No Action Needed (Not Done) 03/20/2024 9:25 EDT Discharge Level of Care at Discharge Homehealth/VNA Discharge VNA/Hospice/Home Care [facility] [phone] Service Categories #1 Retirement Service Comments #1 [facility] will initiate care 03/23.Their number is [phone].(Modified) Service Categories #2 Home IV antibiotics Service Comments #2 [facility] will provide medication and supplies. their number is [phone]. Pulmonary Rehab Discharge : Pulmonary Rehab Discharge Status 03/22/2024 3:16 EDT CPAP/BiPAP Mask Type Full CPAP/BiPAP Mask Size Medium 03/22/2024 0:15 EDT CPAP/BiPAP Mask Type Full CPAP/BiPAP Mask Size Medium 03/21/2024 0:24 EDT CPAP/BiPAP Mask Type Full CPAP/BiPAP Mask Size Medium 03/20/2024 23:04 EDT CPAP/BiPAP Mask Type Full CPAP/BiPAP Mask Size Medium 03/19/2024 0:48 EDT CPAP/BiPAP Mask Type Full CPAP/BiPAP Mask Size Medium 03/18/2024 0:59 EDT CPAP/BiPAP Mask Type Full CPAP/BiPAP Mask Size Medium 03/17/2024 10:00 EDT CPAP/BiPAP Mask Type Full CPAP/BiPAP Mask Size Medium Rehabilitation Discharge : Rehab Discharge Index 03/21/2024 8:41 EDT Walker: distance >50 03/20/2024 9:51 EDT Walker: distance >50 03/19/2024 16:24 EDT Walker: distance 10-20 03/18/2024 8:55 EDT Comments on treatment indicated ADLs, functional mobility, safety, pt ed. Full chart review completed Yes Hospital course See comment 03/18/2024 8:09 EDT Comments on treatment indicated 64 yo F with PMH including COPD on 3-4LO2 at baseline, h/o chronic osteomyelitis R femur, now s/p R thigh debridement with wound vac placement on 03/[address] Mills. WBAT R LE, wound vac. Skilled PT for therex, transfers, amb with RW, stairs. Walker: distance 20-50 Distance pt will ambulate 50 ft with RW Full chart review completed Yes Hospital course see comment Other findings see comment Plan of care PT Gait training, Transfer training, Therapeutic exercise, Functional Activities, Balance training * Tahira ORDAZ, Maximino: PERFORM Event Display: Progress Note Hospital Authored Date: Patient: ??SAMPLE, REID ? Age:??64 Years?Sex:??Female?:??1960?? Subjective Hospital Medicine is consulted for: medical management.? No acute events overnight, wound culture obtained from OR grew skin mo hence patient is started on vancomycin with PICC line placed today anticipate 6 weeks of therapy. Patient is resting in chairchatting with family, alert and oriented, hemodynamically stable, anticipate to be discharged tomorrow after vancomycin given. No new complaints.?? Review of Systems ?? Cardiovascular:??no chest pain Respiratory:??No shortness of breath, cough or sputum production. Gastrointestinal:??No anorexia, nausea, vomiting or diarrhea. No abdominal pain or blood in stool. Genitourinary:??No burning micturition. No urinary frequency or incontinence. ?? Objective Measurements?? Height: 157 cm (03/21/24) Weight: 124 kg (03/17/24) Dry Weight: 124 kg (03/17/24) Body Mass Index:??50.31 kg/m2??Critical (03/17/24) ? Vital Signs?? Temperature: 97.2 DegF (03/21/24 15:25:00) Temperature Route: Oral (03/21/24 15:25:00) Pulse Rate: 62 bpm (03/21/24 15:25:00) Respiratory Rate: 18 br/min (03/21/24 15:30:00) Systolic Blood Pressure:??151 mm Hg??High (03/21/24 15:25:00) Diastolic Blood Pressure: 70 mm Hg (03/21/24 15:25:00) Blood pressure sites: Arm, right (03/21/24 15:25:00) Mean Arterial Pressure: 97 mm Hg (03/21/24 15:25:00) Pulse Pressure: 81 mm Hg (03/21/24 15:25:00) Oxygen Saturation: 96 % (03/21/24 15:25:00) Liters per Minute: 3 L/min (03/21/24 15:25:00) Mode of Delivery (Oxygen): Nasal cannula (08/27/24 15:25:00) Early Warning Score: 2 (03/21/24 15:26:13) ? Pain Scores 1 - 10 Pain Scale Score: 8 (22:30) Pain relief acceptable: Yes (22:30) ?? Intake/Output? 03/18 16:23 03/21 07:00 03/20 07:00 03/19 07:00 03/18 07:00 ?? 03/21 16:34 03/21 16:34 03/21 06:59 03/20 06:59 03/19 06:59 Intake ? 3870 ?360 ? 1110 ? 1460 ?720 Output ? 6051 ?401 ? 2250 ? 1750 ? 1100 Net Total ?-2181 ?-41 ?-1140 ? -290 ? -380 ? Urine Count ?1 ?1 ?0 ?0 ?0 ? Precautions No Precautions documented.? Physical Exam Constitutional: Alert, in no acute distress. Head EENT: Extraocular muscle movement intact.??Moist mucous membranes.?? Respiratory: Clear to auscultation. No wheezing or crackles. No use of accessory muscles. Cardiovascular: S1S2 regular. No murmurs, rubs or gallops. Gastrointestinal: Abdomen soft, non-tender, non-distended. Normal bowel sounds. Extremities: R thigh dressing??in??place, bilateral??LE venous??stasis??changes, L??anterior??alexadner healed hematoma.?? Neurologic: AAOx3, Speech normal. No focal neurological deficits. Psychiatric: Normal mood and affect _ Inpatient Medications Medications (26) Active SCHEDULED: (18) Acetaminophen 325 mg Tablet (Tylenol 325 mg oral tablet) ??975 mg, By Mouth, 3 times a day Atorvastatin 80 mg Tablet (atorvastatin 80 mg oral tablet) ??80 mg, By Mouth, Daily at bedtime Breo Ellipta 100 mcg / 25 mcg Inhaler (Breo Ellipta 100 mcg-25 mcg Inhaler) ??1 puffs, Inhalation, Daily buprenorphine-naloxone 4 mg-1 mg Film (Suboxone 4 mg-1 mg Sublingual Film) ??1 film, Sublingual, Every 6 hours Calcium Citrate 315mg / Vit D 250IU (Calcium Citrate 315 mg + Vitamin D 250IU Tablet) ??315 mg 1 tablet, By Mouth, Every 6 hours Clonazepam 1 mg Tablet (clonazePAM 1 mg oral tablet) ??1 mg, By Mouth, Daily Diltiazem 240 mg/24 hour CD Capsule (diltiazem 240 mg/24 hours oral capsule, extended release) ??240 mg, By Mouth, Daily Docusate Sodium 100 mg Capsule (Docusate Sodium Capsule) ??100 mg 1 capsule, By Mouth, 2 times a day Enoxaparin 60 mg Inj (Enoxaparin Inj) ??60 mg 0.6 mL, Subcutaneous Injection, 2 times a day Folic Acid/Vit B Comp/C Capsule (Vit B Complex/Vit C/Folate Capsule) ??1 capsule, By Mouth, Daily Melatonin 3 mg Tablet (Melatonin Tablet) ??6 mg, By Mouth, Daily at bedtime NaCL 0.9% Flush 10ml (Flush NaCl 0.9% (10mL)) ??10 mL, IV Push, Every 8 hours NaCL 0.9% Flush 10ml (NaCL 0.9% Flush) ??10 mL, IV Push, Daily Pantoprazole 40 mg EC Tablet (Pantoprazole Tablet) ??40 mg, By Mouth, Daily Senna Tablet ??17.2 mg 2 tablet, By Mouth, Daily at bedtime Spiriva Respimat 2.5 mcg Inhaler (Spiriva Respimat Inhaler) ??2 puffs, Inhalation, Daily Theophylline 400 mg/24 hours CR Tablet (Roque-Dur Tablet) ??400 mg, By Mouth, Daily Vancomycin 1500 mg Inj (Vancomycin IVPB) ??1,500 mg, IVPB, Every 24 hours CONTINUOUS: (0) PRN: (8) Albuterol/Ipratropium Inhalation Gladys 3mL (Duoneb Inhalation Solution) ??1 vials, BAND Nebulizer, Every 4 hours Bisacodyl 10 mg Suppository (Bisacodyl Supp) ??10 mg 1 supp, Rectally, Daily Clonazepam 0.5 mg Tablet (clonazePAM 0.5 mg oral tablet) ??0.5 mg, By Mouth, Daily hydrALAZINE 20 mg/mL Inj (hydrALAZINE Inj) ??10 mg 0.5 mL, IV Push Slowly, 2 times a day Magnesium Hydroxide 8% Susp UD (Milk of Magnesia Liquid) ??30 mL, By Mouth, 2 times a day NaCL 0.9% Flush 10ml (Flush NaCl 0.9% (10mL)) ??10 mL, IV Push, Every 8 hours Ondansetron 2mg/mL Inj (2mL Vial) (Zofran Inj) ??4 mg, IV Push, Every 6 hours OxyCODONE 5 mg IR Tablet (oxyCODONE 5 mg oral tablet) ??15 mg, By Mouth, Every 4 hours ? 72 Hour Antibiotic History Active Antibiotics Calendar Day Last Administered First Administered Vancomycin??1,500 mg, 166.67 mL/hr, IVPB, Every 24 hours ?2 03/21/2024 14:31 03/20/2024 16:10 ? Stopped Antibiotics Stop Date/Time Last Administered First Administered Doxycycline??100 mg, By Mouth, Every 12 hours 03/21/2024 16:14 03/21/2024 14:28 03/17/2024 23:56 ? Results Recent Labs AFB/FUNGUS Fungus Stain Final report ()?? 03/17/2024 08:38 Fungal Stain Result 1 Comment ()?? 03/17/2024 08:38 ?? BACTERIOLOGY Tissue/Biopsy Culture Results Final report ()?? 03/17/2024 08:38 Anaerobic Cult, Extended Incub Preliminary report ()?? 03/17/2024 08:38 Anaerobic Culture Isolate 1 Comment ()?? 03/17/2024 08:38 ?? BLOOD COUNT & DIFF WBC 9.3 k/mm3 ()?? 03/20/2024 01:02 RBC 3.29 m/mm3 (Low)?? 03/20/2024 01:02 Hgb 8.3 Gm/dL (Low)?? 03/20/2024 01:02 Hct 29.5 % (Low)?? 03/20/2024 01:02 MCV 89.7 femtoliters ()?? 03/20/2024 01:02 MCH 25.2 pg (Low)?? 03/20/2024 01:02 MCHC 28.1 g/dL (Low)?? 03/20/2024 01:02 Platelet Count 206 k/mm3 ()?? 03/20/2024 01:02 RDW-SD 50.5 femtoliters (High)?? 03/20/2024 01:02 MPV 10.7 femtoliters ()?? 03/20/2024 01:02 Nucleated RBC (Automated) 0.0 #/100 WBC'S ()?? 03/20/2024 01:02 Abs. NRBC 0.0 k/mm3 ()?? 03/20/2024 01:02 ?? CHEM GENERAL Sodium 144 mmol/L ()?? 03/20/2024 01:02 Potassium 4.7 mmol/L ()?? 03/20/2024 01:02 Chloride 103 mmol/L ()?? 03/20/2024 01:02 Bicarbonate Level 36 mmol/L (High)?? 03/20/2024 01:02 Anion Gap 5 ()?? 03/20/2024 01:02 BUN 30 mg/dL (High)?? 03/20/2024 01:02 Creatinine-Blood 0.91 mg/dL ()?? 03/20/2024 01:02 Estimated GFR Creatinine 71 ML/MIN/1.73 M2 ()?? 03/20/2024 01:02 Vitamin B12 Level 455 pg/mL ()?? 03/20/2024 01:02 Folic Acid Level 6.4 ng/mL ()?? 03/20/2024 01:02 Iron Level 21 mcg/dL (Low)?? 03/20/2024 01:02 Iron Binding Capacity, Unsaturated 267 mcg/dL ()?? 03/20/2024 01:02 Iron Binding Capacity, Estimated Total 288 mcg/dL ()?? 03/20/2024 01:02 % Iron Saturation 7 % (Low)?? 03/20/2024 01:02 Ferritin Level 24 ng/mL ()?? 03/20/2024 01:02 ?? URINE OTHER Est Creatinine Clearance 49.61 mL/min ()?? 03/20/2024 02:10 ? Assessment/Plan ?? Chronic osteomyelitis ??(M86.60) Hardware complicating wound infection ??(T84.7XXA) -s/p I&D and partial hardware removal, plan on 6 weeks of IV vancomycin per ID recommendations ?? Paroxysmal A-fib ??(I48.0) -DOAC has been on hold for months due to LE hematoma, consider resume once surgically cleared ?? Iron deficiency anemia ??(D50.9) -ferritin is low suggestive of TEJA, exact etiology is unclear but H/H has been stable, consider to update age appropriate cancer screening outpatient, consider to start PO ferrous sulfate 325 mg daily or other equivalent iron supplements with??bowel regimen ?? COPD without exacerbation ??(J44.9) Opioid use disorder, severe, in sustained remission ??(F11.21) Severe obesity ??(E66.01) Chronic respiratory failure with hypoxia and hypercapnia ??(J96.11) HTN (hypertension) ??(I10) Obesity hypoventilation syndrome ??(E66.2) -stable conditions continue home meds and outpatient optimization ?? Thanks for allowing me to participate in [facility], hospital medicine will sign off. ? Discharge Planning:??as per primary team? Radiology * Event Display: PICC Line IV Insertion Image Authored Date: Patient Care team information Care Team Personnel Name: Thomas Lomax RN Position: [facility] ED RN W/OE and Tasks Member Role: Primary Care Nurse Name: Mandy Hightower RN Position: [facility] RN Member Role: Primary Care Nurse Name: Akosua Moses RN Position: [facility] RN Member Role: Primary Care Nurse Name: Michelle Zambrano RN Position: [facility] RN Member Role: Primary Care Nurse Name: Stacie Ortiz RN Position: [facility] SN RN Member Role: Primary Care Nurse Name: Nicole Alvarado RN Position: [facility] AMB Nurse Member Role: Primary Care Nurse Name: Saranya Muir RN Position: [facility] RN Member Role: Primary Care Nurse Name: David Gil RN Position: [facility] RN Member Role: Primary Care Nurse Name: Chirag Ramon JR, MD Position: Reference Physician Member Role: PCP Address: Address: [address] [place] [address] Name: Pau Olmedo RN Position: [facility] RN Member Role: Primary Care Nurse Name: Rodrigo Neol RN Position: [facility] RN Member Role: Primary Care Nurse Name: Ximena Constantino RN Position: [facility] SN RN Member Role: Primary Care Nurse Name: Kylie Wilde RN Position: [facility] RN Member Role: Primary Care Nurse Name: Domenica Ramirez RN Position: [facility] RN Member Role: Primary Care Nurse Name: Talita Roberts RN Position: [facility] RN Member Role: Primary Care Nurse Name: Klarissa Ko RN Position: [facility] RN Member Role: Primary Care Nurse Name: Ivette Osorio RN Position: [facility] RN Member Role: Primary Care Nurse Name: Alma Lott RN Position: [facility] SN RN Member Role: Primary Care Nurse Name: Elise Quick NP Position: [facility] Associate Professional Member Role: Lifetime Consulting Provider Address: Address: [address] [place] [address] [address] [facility] [place] [address]- Name: Eulalio Prado MD Position: [facility] Renal MD Member Role: Lifetime Consulting Physician Address: Address: [address] [place] [address] [address] [facility] [place] [address]- Name: Caroline Shirley RN Position: [facility] RN Member Role: Primary Care Nurse Name: Cori Landeros RN Position: [facility] RN Member Role: Primary Care Nurse Name: Chelle Ricardo RN Position: [facility] RN Member Role: Primary Care Nurse Name: Wolfgang Siddiqui RN Position: [facility] RN Member Role: Primary Care Nurse Name: Sigrid London RN Position: [facility] RN Member Role: Primary Care Nurse Name: Kelsi Kim RN Position: [facility] RN Member Role: Primary Care Nurse Name: Mireya Catherine RN Position: [facility] RN Member Role: Primary Care Nurse Name: Lizet Hilliard RN Position: [facility] RN Member Role: Primary Care Nurse Name: Magalie Grande RN Position: S RN Member Role: Primary Care Nurse Name: Josefina Leonard RN Position: [facility] SN RN Member Role: Primary Care Nurse Name: Prem Barrera MD Position: [facility] Renal MD Member Role: Lifetime Consulting Physician Address: Address: [address] [place] [address] [facility] [address] Name: Alma Reyes RN Position: [facility] RN Member Role: Primary Care Nurse Name: Nayely Mercado RN Position: [facility] RN Member Role: Primary Care Nurse Name: Lata Hernandez RN Position: [facility] SN RN Member Role: Primary Care Nurse Name: Atul Molina MD Position: [facility] Renal MD Member Role: Lifetime Consulting Physician Address: Address: [address] [place] [address] [facility] [address] Name: Gema Jean Baptiste RN Position: [facility] RN Member Role: Primary Care Nurse Name: Esther Miller RN Position: [facility] RN Member Role: Primary Care Nurse Name: Siena Coleman RN Position: [facility] RN Member Role: Primary Care Nurse Name: Julia Alex RN Position: [facility] RN Member Role: Primary Care Nurse Name: Brandi Martinez RN Position: [facility] RN Member Role: Primary Care Nurse Name: Joann Moore RN Position: [facility] RN Member Role: Primary Care Nurse Name: Ramya Cook RN Position: [facility] Hospital Lighter Member Role: Primary Care Nurse Name: Cynthia dOonnell Position: [facility] TA Member Role: Patient Care Provider Care Team Related Persons Name: DAMIENAPRIL Name: AUGUSTO HOA Address: home [address] [place] [address]
--- OUTSIDE RECORDS SUMMARY | 2024-04-21 12:03 | XMS_ITS | Continuity of Care Document ---
Author Organization [facility] Address [address] [place] [address]- Care Team Providers Care Costume Seamstress Name Role Phone Yenny ROSE MD, Chirag Olivo Primary Care Physici an Encounter [facility] Date(s): 03/15/24 - 04/14/24 [facility] [address] [place] [address]- Attending Physician: Bethany Smith Admitting Physician: AdmtrBethany Referring Physician: Admtr, Ar8 Allergies, Adverse Reactions, Alerts Substance Reaction Severity Status morphine anaphylaxis Severe Active gabapentin tardive dyskenesia Active Tomatoes mouth itch Active propofol anaphylaxis Active Immunizations Given and Recorded Vaccine Date Status Refusal Reason SARS-CoV-2(COVID-19)mRNA-LNP vac([id number]) 09/08/23 Recorded influenza virus vaccine, inactivated 05/05/22 [...] 03/21/24 16:28:00 EDT, Route to Pharmacy Electronically, [facility], Partial fill upon patient request if the prescription is for a schedule... Start Date: 03/21/24 Status: Ordered atorvastatin 80 mg oral tablet 1 tablet = 80 mg, By Mouth, Daily at bedtime, # 30 tablet, 0 Refills, Maintenance, 05/14/22 16:09:00 EDT, Tablet, [facility], Partial fill upon patient [...] 0 Refills, Maintenance, 03/21/24 16:26:00 EDT, Capsule, [facility], Partial fill upon patient request if the prescription is for a schedule II opioid drug., 157, cm, 03/21/24 15:... Start Date: 03/21/24 Stop Date: 04/04/24 Status: Ordered Lisinopril = 60 mg, By [...] 0 Refills, Soft Stop, 09/01/23 15:31:00 EST, [facility]/pharmacy #2071, Partial fill upon patient... Start Date: 09/01/23 Status: Ordered omeprazole 20 mg oral delayed release tablet 1 tablet = 20 mg, By Mouth, Daily, # 30 tablet, 0 Refills, Maintenance, 04/17/22 18:01:00 EDT, CR Tablet, [facility]/pharmacy #2071, Partial fill upon patient [...] Team Personnel Name: Thomas Lomax RN Position: [facility] ED RN W/OE and Tasks Member Role: Primary Care Nurse Name: Mandy Hightower RN Position: [facility] RN Member Role: Primary Care Nurse Name: Akosua Moses RN Position: [facility] RN Member Role: Primary Care Nurse Name: Michelle Zambrano RN Position: [facility] RN Member Role: Primary Care Nurse Name: Stacie Ortiz RN Position: [facility] RN Member Role: Primary Care Nurse Name: Nicole Alvarado RN Position: [facility] AMB Nurse Member Role: Primary Care Nurse Name: Saranya Muir RN Position: [facility] RN Member Role: Primary Care Nurse Name: David Gil RN Position: [facility] RN Member Role: Primary Care Nurse Name: D'RehanChirag miranda JR, MD Position: Reference Physician Member Role: PCP Address: Address: [address] [place] [address]- [place] Name: Pau Olmedo RN Position: [facility] RN Member Role: Primary Care Nurse Name: Rdorigo Noel RN Position: [facility] RN Member Role: Primary Care Nurse Name: Ximena Constantino RN Position: [facility] SN RN Member Role: Primary Care Nurse Name: Kylie Wilde RN Position: [facility] RN Member Role: Primary Care Nurse Name: Domenica Ramirez RN Position: [facility] RN Member Role: Primary Care Nurse Name: Talita Roberts RN Position: [facility] RN Member Role: Primary Care Nurse Name: Klarissa Ko RN Position: [facility] RN Member Role: Primary Care Nurse Name: Ivette Osorio RN Position: [facility] RN Member Role: Primary Care Nurse Name: Alma Lott RN Position: [facility] SN RN Member Role: Primary Care Nurse Name: Elise Quick NP Position: [facility] Associate Professional Member Role: Lifetime Consulting Provider Address: Address: [address] [place], [place] [address] [place] [address]- Name: Eulalio Prado MD Position: [facility] Renal MD Member Role: Lifetime Consulting Physician Address: Address: [address] [place], [place] [address] [address] Name: Caroline Shirley RN Position: [facility] RN Member Role: Primary Care Nurse Name: Cori Landeros RN Position: [facility] RN Member Role: Primary Care Nurse Name: Chelle Ricardo RN Position: [facility] RN Member Role: Primary Care Nurse Name: Wolfgang Siddiqui RN Position: [facility] RN Member Role: Primary Care Nurse Name: Sigrid London RN Position: [facility] RN Member Role: Primary Care Nurse Name: Kelsi Kim RN Position: [facility] RN Member Role: Primary Care Nurse Name: Mireya Catherine RN Position: [facility] RN Member Role: Primary Care Nurse Name: Lizet Hilliard RN Position: [facility] RN Member Role: Primary Care Nurse Name: Magalie Grande RN Position: [facility] RN Member Role: Primary Care Nurse Name: Josefina Leonard RN Position: [facility] SN RN Member Role: Primary Care Nurse Name: Prem Barrera MD Position: [facility] Renal MD Member Role: Lifetime Consulting Physician Address: Address: [address] [place] [address] [address] [facility] [place] [address]- Name: Alma Reyes RN Position: [facility] RN Member Role: Primary Care Nurse Name: Nayely Mercado RN Position: [facility] RN Member Role: Primary Care Nurse Name: Lata Hernandez RN Position: [facility] SN RN Member Role: Primary Care Nurse Name: Atul Molina MD Position: [facility] Renal MD Member Role: Lifetime Consulting Physician Address: Address: [address] [place] [address] [facility] [place] [address]- Name: Gema Jean Baptiste RN Position: [facility] RN Member Role: Primary Care Nurse Name: Esther Miller RN Position: [facility] RN Member Role: Primary Care Nurse Name: Siena Coleman RN Position: [facility] RN Member Role: Primary Care Nurse Name: Julia Alex RN Position: [facility] RN Member Role: Primary Care Nurse Name: Brandi Martinez RN Position: [facility] RN Member Role: Primary Care Nurse Name: Joann Moore RN Position: [facility] RN Member Role: Primary Care Nurse Name: Ramya Cook RN Position: [facility] Wheel Lacer And Truer Member Role: Primary Care Nurse Care Team Related Persons Name: APRIL QUEZADA Name: HARVEY CASAS Address: home [address] [place] [id number]
--- OUTSIDE RECORDS SUMMARY | 2024-04-21 12:04 | XMS_ITS | Continuity of Care Document ---
Author Organization [facility] Address [address] [place] [address]- Care Team Providers Care Public Health Engineer Name Role Phone Yenny ROSE MD, Chirag Olivo Primary Care Physici an Encounter [facility] Date(s): 03/13/24 - 04/12/24 [facility] [address] [place] [address] Allergies, Adverse Reactions, Alerts Substance Reaction Severity Status morphine anaphylaxis Severe Active propofol anaphylaxis Active gabapentin tardive dyskenesia Active Tomatoes mouth itch Active Immunizations Given and Recorded Vaccine Date Status Refusal Reason SARS-CoV-2(COVID-19)mRNA-LNP vac([id number]) 09/08/23 Recorded influenza virus vaccine, inactivated 05/05/22 [...] 03/21/24 16:28:00 EDT, Route to Pharmacy Electronically, [facility], Partial fill upon patient request if the prescription is for a schedule... Start Date: 03/21/24 Status: Ordered atorvastatin 80 mg oral tablet 1 tablet = 80 mg, By Mouth, Daily at bedtime, # 30 tablet, 0 Refills, Maintenance, 05/14/22 16:09:00 EDT, Tablet, [facility], [...] 0 Refills, Maintenance, 03/21/24 16:26:00 EDT, Capsule, [facility], Partial fill upon patient [...] 0 Refills, Soft Stop, 09/01/23 15:31:00 EST, [facility]/pharmacy #2071, Partial fill upon patient... Start Date: 09/01/23 Status: Ordered omeprazole 20 mg oral delayed release tablet 1 tablet = 20 mg, By Mouth, Daily, # 30 tablet, 0 Refills, Maintenance, 04/17/22 18:01:00 EDT, CR Tablet, [facility]/pharmacy #2071, Partial fill upon patient [...] Team Personnel Name: Thomas Lomax RN Position: [facility] ED RN W/OE and Tasks Member Role: Primary Care Nurse Name: Mandy Hightower RN Position: [facility] RN Member Role: Primary Care Nurse Name: Akosua Moses RN Position: [facility] RN Member Role: Primary Care Nurse Name: Michelle Zambrano RN Position: [facility] RN Member Role: Primary Care Nurse Name: Stacie Ortiz RN Position: [facility] RN Member Role: Primary Care Nurse Name: Nicole Alvarado RN Position: [facility] RN Member Role: Primary Care Nurse Name: Saranya Muir RN Position: [facility] RN Member Role: Primary Care Nurse Name: David Gil RN Position: [facility] RN Member Role: Primary Care Nurse Name: Chirag Ramon JR, MD Position: Reference Physician Member Role: PCP Address: Address: [address] [place] [address] Name: Pau Olmedo RN Position: [facility] RN Member Role: Primary Care Nurse Name: Rodrigo Noel RN Position: [facility] RN Member Role: Primary Care Nurse Name: Ximena Constantino RN Position: [facility] SN RN Member Role: Primary Care Nurse Name: Kylie Wilde RN Position: [facility] RN Member Role: Primary Care Nurse Name: Domenica Ramirez RN Position: [facility] RN Member Role: Primary Care Nurse Name: Talita Roberts RN Position: [facility] RN Member Role: Primary Care Nurse Name: Klarissa Ko RN Position: [facility] RN Member Role: Primary Care Nurse Name: Ivette Osorio RN Position: [facility] RN Member Role: Primary Care Nurse Name: Alma Lott RN Position: [facility] SN RN Member Role: Primary Care Nurse Name: Elise Quick NP Position: [facility] Associate Professional Member Role: Lifetime Consulting Provider Address: Address: [address] [place] [address] [place], [place] [address] [address] Name: Eulalio Prado MD Position: [facility] Renal MD Member Role: Lifetime Consulting Physician Address: Address: [address] [place] [address] [place], [place] [address] [address] Name: Caroline Shirley RN Position: [facility] RN Member Role: Primary Care Nurse Name: Cori Landeros RN Position: [facility] RN Member Role: Primary Care Nurse Name: Chelle Ricardo RN Position: [facility] RN Member Role: Primary Care Nurse Name: Wolfgang Siddiqui RN Position: [facility] RN Member Role: Primary Care Nurse Name: Sigrid London RN Position: [facility] RN Member Role: Primary Care Nurse Name: Kelsi Kim RN Position: [facility] RN Member Role: Primary Care Nurse Name: Mireya Catherine RN Position: [facility] RN Member Role: Primary Care Nurse Name: Lizet Hilliard RN Position: [facility] RN Member Role: Primary Care Nurse Name: Magalie Grande RN Position: [facility] RN Member Role: Primary Care Nurse Name: Josefina Leonard RN Position: [facility] SN RN Member Role: Primary Care Nurse Name: Prem Barrera MD Position: [facility] Renal MD Member Role: Lifetime Consulting Physician Address: Address: [address] [place] [address] [address] [facility] [place] [place] [address]- Name: Alma Reyes RN Position: [facility] RN Member Role: Primary Care Nurse Name: Nayely Mercado RN Position: S RN Member Role: Primary Care Nurse Name: Lata Hernandez RN Position: [facility] SN RN Member Role: Primary Care Nurse Name: Atul Molina MD Position: [facility] Renal MD Member Role: Lifetime Consulting Physician Address: Address: [address] [place] [address] [facility] [place] [address]- Name: Markel RNGema Position: [facility] RN Member Role: Primary Care Nurse Name: Esther Miller RN Position: [facility] RN Member Role: Primary Care Nurse Name: Siena Coleman RN Position: [facility] RN Member Role: Primary Care Nurse Name: Julia Alex RN Position: [facility] RN Member Role: Primary Care Nurse Name: Brandi Martinez RN Position: [facility] RN Member Role: Primary Care Nurse Name: Joann Moore RN Position: [facility] RN Member Role: Primary Care Nurse Name: Ramya Cook RN Position: [facility] Extruding Press Operator Member Role: Primary Care Nurse Care Team Related Persons Name: DAMIENAPRIL Name: HARVEY CASAS Address: home [address] [place] [id number]
[2024-04-21 12:54] LABS: Alanine Aminotransferase 6 U/L (0-31); Albumin Level 3.4 g/dL (3.5-5.0); Alkaline Phosphatase 86 U/L (39-117); Anion Gap 9 (12-20); Aspartate Amino Transferase 7 U/L (5-31); Bilirubin Total 0.3 mg/dL (0.0-1.0); Blood Urea Nitrogen 24 mg/dL (9-16); Calcium 9.2 mg/dL (8.4-10.2); Carbon Dioxide 40 mmol/L (22-29); Chloride 101 mmol/L (96-108); Creatinine Clr Calc Pharmacy 72.2; Estimated Glomerular Filt Rate 53; Glucose Random 144 mg/dL (60-115); Magnesium 2.1 mg/dL (1.6-2.6); Potassium 4.3 mmol/L (3.3-5.1); Sodium 146 mmol/L (135-145); Total Protein 6.3 g/dL (6.5-8.0)
--- NOTE | 2024-04-21 13:09 | ED_ITS ---
HPI - General Adult General Chief complaint: Recheck/Abnormal Lab/Rx Stated complaint: ABNORMAL LABS,INC FATIGUE+SOB PER EMS Time Seen by Provider: 04/21/24 11:48 Source: patient, RN notes reviewed and old records reviewed Mode of arrival: EMS Limitations: no limitations History of Present Illness ED Provider: Greg HPI narrative: 64-year-old female with a past medical history significant for COPD on 2 L, nocturnal BiPAP, congestive heart failure, morbid obesity, paroxysmal AFib not anticoagulated, right lower extremity osteomyelitis currently on vancomycin presents for evaluation of ?low blood counts. ? Patient reports that she had labs done 2 days ago for a vancomycin trough/level She states that her doctor called her today to tell her that her hemoglobin was 7.1 and that she should go to the emergency department The patient reports that she feels well, at her baseline She reports that she did feel fatigued a couple of days ago which she attributes to receiving her flu, Pneumovax, and COVID vaccines 4 days ago She denies any black or bloody stool. She denies any shortness of breath at rest or with exertion compared to her baseline Denies any abdominal pain No other complaints or concerns at this time Related Data Home Medications ?Medication ?Instructions ?Recorded ?Confirmed theophylline 400 mg 400 mg PO DAILY 01/18/23 04/03/24 capsule,extended release 24 hr (Roque-24) fluticasone fur. 100 mcg-umeclid 1 ea inhalation DAILY 11/15/23 04/03/24 62.5 mcg-vilant 25 mcg inhalat.powder (Trelegy Ellipta) aspirin 81 mg tablet,delayed 81 mg PO BID 04/03/24 04/03/24 release docusate sodium 100 mg tablet 100 mg PO BID 04/03/24 04/03/24 oxycodone 15 mg tablet 15 mg PO Q4H PRN pain 04/03/24 04/03/24 vancomycin 1.5 gram/300 mL in 0.9 1.5 g IV Q24H 04/03/24 04/03/24 % sodium chloride intravenous Previous Rx's ?Medication ?Instructions ?Recorded azithromycin 500 mg tablet 500 mg PO Q24H #5 tabs 04/05/24 furosemide 20 mg tablet 20 mg PO DAILY #90 tabs 04/05/24 prednisone 20 mg tablet 40 mg (2 x 20 mg) PO DAILY #10 tabs 04/05/24 Allergies Allergy/AdvReac Type Severity Reaction Status Date / Time gabapentin Allergy Mild Anxiety Verified 04/21/24 11:30 morphine [MORPHINE] Allergy Unknown ANAPHALAXIS, Verified 04/21/24 11:30 anaphylaxis propofol [From Diprivan] Allergy Anaphylaxis Verified 04/21/24 11:30 Review of Systems 2 Constitutional: Constitutional: Denies body ache(s), Denies chills, Denies fever(s), Denies frequent falls, Denies headache(s) and Reports malaise ENT: Denies headache(s) Cardiovascular: Cardiovascular: Denies chest pain and Denies dyspnea Respiratory: Respiratory: Denies chest congestion, Denies cough and Denies dyspnea Gastrointestinal: Gastrointestinal: Denies abdominal pain, Denies nausea and Denies vomiting Musculoskeletal: Musculoskeletal: Denies back pain Integumentary/Breasts: Skin/Breast: Denies rash Neurologic: Denies frequent falls and Denies headache(s) [facility] Past Medical History Medical History Open wound of lower extremity COPD (chronic obstructive pulmonary disease) Femur fracture Crohn's colitis Immobility Morbid obesity due to excess calories Adopted Femur fracture, right Closed tibia fracture Acute on chronic respiratory failure with hypoxia and hypercapnia Wound of left lower extremity Nonrheumatic mitral (valve) stenosis Acute on chronic right heart failure Paroxysmal atrial fibrillation Dyspnea ALEKSEY treated with BiPAP Hypoventilation associated with obesity Pickwickian syndrome Chronic hypercapnic respiratory failure Opioid use disorder Surgical History Hx of cholecystectomy History of open reduction and internal fixation (ORIF) procedure Status post open reduction and internal fixation (ORIF) of fracture Recent surgical procedure on lower extremity Family History Family History Other Adopted Social History Social History Household Members: Significant Other Household Members Other:: , Hoa. Daughter Carolyn, 21. Daughter's Boyfriend, 22. 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) Alcohol intake: former Year quit: 1989 Patient Tobacco Use Status: Former Tobacco user Years Smoked: 25 Second Hand Smoke Exposure: No Advance Directives: Yes Advance Directives on File: Yes Advance Directives Date on File: 12/16/20 service: No Current occupational status: disabled Physical Exam ED Vital Signs: Vital Signs - 24 hr 04/21/24 11:28 Temperature 97.9 F Pulse Rate 71 Respiratory Rate 16 Blood Pressure 132/44 L Pulse Oximetry 99 Oxygen Delivery Method Simple Mask BMI result Body Mass Index 57.0 Const General: comfortable, no acute distress, alert and awake Nutritional Appearance: well nourished Orientation/consciousness: patient oriented x3 HENMT Head: Yes normocephalic and Yes atraumatic Eyes Eyelids: Yes eyelids normal Conjunctivae: conjunctivae normal Sclerae: sclerae normal Corneas: corneas normal Pupils: Equal, round and reactive pupils present EOM: EOMs intact bilaterally Neck Neck: Yes full ROM Resp Effort & Inspection: normal respiratory effort, able to speak in complete sentences and not labored Auscultation: clear to auscultation bilaterally (Diminished but otherwise clear to auscultation), no rhonchi and no wheezes Cardio Rate: regular rate Rhythm: regular rhythm GI Inspection: No distended Palpation (GI): Soft to palpation, not firm, nontender, no guarding and not rigid Skin General skin exam: elasticity normal Neuro General: patient oriented x3 Cranial nerves: Yes Equal, round and reactive pupils present and Yes Bilaterally intact EOM present Cognition (Neuro): normal cognition Extrem Other: Wound VAC to right lower extremity in place Medical Decision Making Medical Decision Making [facility] Narrative: 64-year-old female with past medical history as documented above presents for evaluation of abnormal labs. She reportedly had a hemoglobin of 7.1 and outpatient labs 2 days ago. She is currently asymptomatic, vital signs are stable. She is not anticoagulated, denies black or bloody stool. Plan for repeat labs. She endorses a history of Crohn's, but denies any history of significant GI bleed, peptic ulcer disease Differential Diagnosis Differential Diagnoses: The differential diagnosis associated with the presentation includes Anemia of chronic disease Iron-deficiency anemia GI bleed Lower GI bleed Hemorrhoids Lab Data [facility] Lab Attestation statement: I reviewed the patient's lab results. No leukocytosis. Patient does have a chronic anemia, her hemoglobin today is 7.8 with a hematocrit 27.1. Her baseline hemoglobin for the last few months as around 8.0. She was 7.5 on 04/04/2024. The patient is not currently anticoagulated, has no concern for GI bleed at this time. Her chemistries are significant for a sodium of 146, potassium, chloride of 101 with a normal limits, an elevated CO2 to 40. This is consistent with a baseline and likely related to multiple factors including COPD, sleep apnea as well as obesity hypoventilation syndrome. Patient's BUN is elevated 24 with a creatinine of 1.05. This ratio does not reflect active GI bleed doctor. 04/21/24 11:49 04/21/24 11:49 Labs: Lab Results 04/21/24 Range/Units 11:49 WBC 7.8 (4.8-10.8) X10*3/uL RBC 3.01 L (4.20-5.50) X10*6/uL Hgb 7.8 L (12.0-16.0) g/dl Hct 27.1 L (37.0-47.0) % MCV 90.0 (80.0-98.0) fL MCH 25.9 L (27.0-33.0) pg MCHC 28.8 L (31.0-35.0) g/dl RDW 15.6 (11.0-16.0) % Plt Count 180 (160-400) X10*3/uL MPV 10.2 (9.4-12.3) fL Immature Gran % (Auto) 0.3 (0.0-0.4) % Neut % (Auto) 77.5 H (45-73) % Lymph % (Auto) 11.7 L (20-40) % Graves % (Auto) 6.8 (2-11) % Eos % (Auto) 3.3 (0-4) % Baso % (Auto) 0.4 (0-2) % Lymph # (Auto) 0.9 L (1.2-4.9) X10*3/uL Graves # (Auto) 0.5 (0.1-1.2) X10*3/uL Eos # (Auto) 0.3 (0.0-0.4) X10*3/uL Baso # (Auto) 0.0 (0.0-0.2) X10*3/uL Abs Immat Gran (auto) 0.02 (0.00-0.03) X10*3/uL Absolute Neuts (auto) 6.1 (2.0-8.3) x10*3/uL Absolute Nucleated RBC 0.000 (0.0-0.012) X10*3/uL Nucleated RBC % (auto) 0.0 (0.0-0.2) /100WBC Sodium 146 H (135-145) mmol/L Potassium 4.3 (3.3-5.1) mmol/L Chloride 101 (96-108) mmol/L Carbon Dioxide 40 H* (22-29) mmol/L Anion Gap 9 L (12-20) BUN 24 H (9-16) mg/dL Creatinine 1.05 (0.5-1.4) mg/dL Estim Creat Clear Calc 72.2 Estimated GFR 53 Random Glucose 144 H (60-115) mg/dL Calcium 9.2 D (8.4-10.2) mg/dL Magnesium 2.1 (1.6-2.6) mg/dL Total Bilirubin 0.3 (0.0-1.0) mg/dL AST 7 (5-31) U/L ALT 6 (0-31) U/L Alkaline Phosphatase 86 (39-117) U/L Total Protein 6.3 L (6.5-8.0) g/dL Albumin 3.4 L (3.5-5.0) g/dL Discharge Plan Discharge Clinical Impression: Anemia Patient Disposition: Home, Self-Care Instructions: Anemia (ED) Additional Instructions: Your hemoglobin today was 7.8, this is just around your baseline. I do recommend that you follow-up with your primary doctor for repeat labs in 1- 2 weeks Return to the ER for new or worsening symptoms, especially if you notice black or bloody stool You may take all your medications as prescribed Prescriptions: No Action aspirin 81 mg Tablet,Delayed Release (Dr/Ec) 81 mg PO BID oxycodone 15 mg tablet 15 mg PO Q4H PRN (Reason: pain) docusate sodium 100 mg Tablet 100 mg PO BID vancomycin in 0.9 % sodium chl 1.5 gram/300 mL Solution 1.5 g IV Q24H prednisone 20 mg Tablet 40 mg PO DAILY Qty: 10 0RF azithromycin 500 mg Tablet 500 mg PO Q24H Qty: 5 0RF furosemide 20 mg tablet 20 mg PO DAILY Qty: 90 0RF Trelegy Ellipta 100-62.5-25 mcg blister with device 1 ea inhalation DAILY Roque-24 400 mg capsule,extended release 24hr 400 mg PO DAILY Print Language: St Helenian
[2024-04-21 13:25] LABS: Influenza A PCR NEGATIVE (Negative); Influenza B PCR NEGATIVE (Negative); Resp Syncy Virus RNA Qual PCR NEGATIVE (Negative); SARS COV2 PCR INHOUSE NEGATIVE (Negative)
[2024-04-21 13:27] VITALS: BP 126/40; PULSE 70; RESP 16; TEMP 36.6; O2SAT 96
--- NOTE | 2024-04-24 10:08 | MHC.CM.ED ---
Patient was d/c'd from ER on 04/21. Received notification from [facility] that patient is active with their agency. ER d/c sent via [email or web address].
== END 2024-04-21 13:41 | disposition home or self-care (01) ==
PROVIDERS: Physician Assistant; Emergency Provider Student in an Organized Health Care Education/Training Program
DX: D64.9 Anemia, unspecified (principal); I48.0 Paroxysmal atrial fibrillation; Z86.14 Personal history of Methicillin resistant Staphylococcus aureus infection
CPT/HCPCS: 0241U; 36415; 80053; 83735; 85025; 93005; 99283

== ENCOUNTER 2024-04-24 13:24 | Inpatient (IN) | payer MEDICARE, MEDICAID, SELFPAY ==
[2024-04-24] VITALS (12 sets, daily range): BP systolic 122–177; BP diastolic 46–82; PULSE 60–97; RESP 16–22; TEMP 36.6–37; O2SAT 89–100; BMI 43.6
--- NOTE | ~2024-04-24 | XR_ITS ---
EXAMINATION: XR CHEST CLINICAL INFORMATION: Shortness of breath COMPARISON: 04/03/2024 TECHNIQUE: Frontal view of the chest was obtained. FINDINGS: Again seen is mild cardiomegaly. There is upper zone redistribution. There was a mild interstitial prominence previously which is improved. No focal consolidations or lung masses are seen. XR/XR chest 1V IMPRESSION: Cardiomegaly with mild pulmonary vascular congestion, slightly better when compared to prior. Electronically signed by: Fercho Dacosta MD 04/24/2024 03:36 PM EDT
--- NOTE | 2024-04-24 13:45 | ECG_ITS ---
Test Reason : SOB Blood Pressure : / mmHG Vent. Rate : 072 BPM Atrial Rate : 072 BPM P-R Int : 166 ms QRS Dur : 090 ms QT Int : 386 ms P-R-T Axes : 062 032 048 degrees QTc Int : 422 ms Normal sinus rhythm Normal ECG When compared with ECG of 21-APR-2024 12:23, No significant change was found Referred By: Melvi Victoria Electronically Signed By:VISHAL GONSALEZ
--- NOTE | 2024-04-24 13:48 | ED_ITS ---
HPI - General Adult General Stated complaint: SOB Time Seen by Provider: 04/24/24 13:44 Related Data Home Medications ?Medication ?Instructions ?Recorded ?Confirmed theophylline 400 mg 400 mg PO DAILY 01/18/23 04/03/24 capsule,extended release 24 hr (Roque-24) fluticasone fur. 100 mcg-umeclid 1 ea inhalation DAILY 11/15/23 04/03/24 62.5 mcg-vilant 25 mcg inhalat.powder (Trelegy Ellipta) aspirin 81 mg tablet,delayed 81 mg PO BID 04/03/24 04/03/24 release docusate sodium 100 mg tablet 100 mg PO BID 04/03/24 04/03/24 oxycodone 15 mg tablet 15 mg PO Q4H PRN pain 04/03/24 04/03/24 vancomycin 1.5 gram/300 mL in 0.9 1.5 g IV Q24H 04/03/24 04/03/24 % sodium chloride intravenous Previous Rx's ?Medication ?Instructions ?Recorded azithromycin 500 mg tablet 500 mg PO Q24H #5 tabs 04/05/24 furosemide 20 mg tablet 20 mg PO DAILY #90 tabs 04/05/24 prednisone 20 mg tablet 40 mg (2 x 20 mg) PO DAILY #10 tabs 04/05/24 Allergies Allergy/AdvReac Type Severity Reaction Status Date / Time gabapentin Allergy Mild Anxiety Verified 04/21/24 11:30 morphine [MORPHINE] Allergy Unknown ANAPHALAXIS, Verified 04/21/24 11:30 anaphylaxis propofol [From Diprivan] Allergy Anaphylaxis Verified 04/21/24 11:30 [facility] Past Medical History Medical History Open wound of lower extremity COPD (chronic obstructive pulmonary disease) Femur fracture Crohn's colitis Immobility Morbid obesity due to excess calories Adopted Femur fracture, right Closed tibia fracture Acute on chronic respiratory failure with hypoxia and hypercapnia Wound of left lower extremity Nonrheumatic mitral (valve) stenosis Acute on chronic right heart failure Paroxysmal atrial fibrillation Dyspnea ALEKSEY treated with BiPAP Hypoventilation associated with obesity Pickwickian syndrome Chronic hypercapnic respiratory failure Opioid use disorder Surgical History Hx of cholecystectomy History of open reduction and internal fixation (ORIF) procedure Status post open reduction and internal fixation (ORIF) of fracture Recent surgical procedure on lower extremity Family History Family History Other Adopted Social History Social History Household Members: Significant Other Household Members Other:: , Hoa. Daughter Carolyn, 21. Daughter's Boyfriend, 22. 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) Alcohol intake: former Year quit: 1989 Patient Tobacco Use Status: Former Tobacco user Years Smoked: 25 Second Hand Smoke Exposure: No Advance Directives Date on File: 12/16/20 service: No Current occupational status: disabled Discharge Plan Discharge Prescriptions: No Action aspirin 81 mg Tablet,Delayed Release (Dr/Ec) 81 mg PO BID oxycodone 15 mg tablet 15 mg PO Q4H PRN (Reason: pain) docusate sodium 100 mg Tablet 100 mg PO BID vancomycin in 0.9 % sodium chl 1.5 gram/300 mL Solution 1.5 g IV Q24H prednisone 20 mg Tablet 40 mg PO DAILY Qty: 10 0RF azithromycin 500 mg Tablet 500 mg PO Q24H Qty: 5 0RF furosemide 20 mg tablet 20 mg PO DAILY Qty: 90 0RF Trelegy Ellipta 100-62.5-25 mcg blister with device 1 ea inhalation DAILY Roque-24 400 mg capsule,extended release 24hr 400 mg PO DAILY Print Language: Kyrgyz
--- NOTE | 2024-04-24 14:03 | ED.GENADULT ---
HPI - General Adult General Chief complaint: Dyspnea Stated complaint: SOB Time Seen by Provider: 04/24/24 13:44 History of Present Illness ED Provider: Saleem AMAYA narrative: The patient is a 64-year-old female with a history of coronary disease, congestive heart failure, and COPD. She is on home oxygen at 3 L nasal cannula. She says that she has been having worsening shortness of breath for the last couple of days and she feels the edema of her lower extremities is also worse over these last few days. She has had no chest pain. No pleuritic pain. No definite fever, sweats, chills. No nausea or vomiting. No diarrhea. No dizziness. The patient was hospitalized here for shortness of breath few weeks ago. The patient feels that her symptoms over the last couple of days are very similar to the symptoms that she had at the time of her previous hospitalization when she was hospitalized for shortness of breath attributed to congestive heart failure. The patient recently had surgery at [facility]. The surgery was on her right distal thigh. She has a history of a femur fracture that was repaired a few years ago. I believe a recent fracture was to address problems with some degree of osteomyelitis and problems with the hardware. She has a PICC line. Related Data Home Medications ?Medication ?Instructions ?Recorded ?Confirmed theophylline 400 mg 400 mg PO DAILY 01/18/23 04/24/24 capsule,extended release 24 hr (Roque-24) vancomycin 1.5 gram/300 mL in 0.9 1.5 g IV Q24H 04/03/24 04/24/24 % sodium chloride intravenous clonazepam 0.5 mg tablet 0.5 mg PO DAILY PRN Anxiety 04/24/24 04/24/24 clonazepam 1 mg tablet 1 mg PO DAILY 04/24/24 04/24/24 fluticasone fur. 100 mcg-umeclid 1 ea inhalation DAILY 04/24/24 04/24/24 62.5 mcg-vilant 25 mcg inhalat.powder (Trelegy Ellipta) furosemide 20 mg tablet 40 mg PO DAILY 04/24/24 04/24/24 oxycodone 5 mg tablet 5 mg PO Q6H PRN Pain 04/24/24 04/24/24 Allergies Allergy/AdvReac Type Severity Reaction Status Date / Time gabapentin Allergy Mild Anxiety Verified 04/24/24 13:52 morphine [MORPHINE] Allergy Unknown ANAPHALAXIS, Verified 04/24/24 13:52 anaphylaxis propofol [From Diprivan] Allergy Anaphylaxis Verified 04/24/24 13:52 Review of Systems Review of Systems: Yes all other systems are reviewed and are negative [facility] Past Medical History Medical History (Updated 04/24/24 @ 18:00 by Branden Monge MD) Enterococcus faecalis infection MSSA (methicillin susceptible Staphylococcus aureus) MRSA (methicillin resistant staph aureus) culture positive Encounter for management of wound VAC Chronic osteomyelitis Hypertension Iron deficiency anemia Open wound of lower extremity COPD (chronic obstructive pulmonary disease) Femur fracture Crohn's colitis Morbid obesity due to excess calories Closed tibia fracture Acute on chronic respiratory failure with hypoxia and hypercapnia Wound of left lower extremity Nonrheumatic mitral (valve) stenosis Acute on chronic right heart failure Paroxysmal atrial fibrillation Dyspnea ALEKSEY treated with BiPAP Hypoventilation associated with obesity Pickwickian syndrome Chronic hypercapnic respiratory failure Opioid use disorder Surgical History (Updated 04/24/24 @ 17:41 by Meagan Farrar NP) Hx of cholecystectomy History of open reduction and internal fixation (ORIF) procedure Status post open reduction and internal fixation (ORIF) of fracture Recent surgical procedure on lower extremity Family History Family History Other Adopted Social History Social History Household Members: Significant Other Household Members Other:: , Hoa. Daughter Carolyn, 21. Daughter's Boyfriend, 22. Neice, 21 Housing: House Do you presently have visiting nurse or other home services: Yes (line analyst and vna) Alcohol intake: former Year quit: 1989 Patient Tobacco Use Status: Former Tobacco user Years Smoked: 25 Smoked in Last 30 Days: No Second Hand Smoke Exposure: No Use of substances other than those prescribed or required for medical reasons: No Advance Directives: Yes Advance Directives on File: Yes Advance Directives Date on File: 12/16/20 Do you have a plan to hurt others: No Plan Nutrition Risks: No Nutritional Risk service: No Current occupational status: disabled Physical Exam ED Vital Signs: Vital Signs - 24 hr 04/24/24 13:48 04/24/24 13:57 04/24/24 16:24 Temperature 97.9 F 98.4 F Pulse Rate 71 97 68 Respiratory Rate 20 16 20 Blood Pressure 142/46 H Pulse Oximetry 98 89 L Oxygen Delivery Method Oxymask High Flow Nasal Cannula Oxygen Flow Rate 7 04/24/24 17:01 04/24/24 17:10 04/24/24 17:15 Temperature Pulse Rate 67 Respiratory Rate 20 18 Blood Pressure 164/56 H Pulse Oximetry Oxygen Delivery Method Oxygen Flow Rate 04/24/24 17:17 Temperature Pulse Rate 63 Respiratory Rate 16 Blood Pressure 164/56 H Pulse Oximetry 93 Oxygen Delivery Method BiPAP Oxygen Flow Rate BMI result Body Mass Index 43.6 Const Other: The patient is a chronically ill-appearing 64-year-old. She is awake and alert and seems reasonably well oriented. She does not seem obviously confused or encephalopathic. She was on an OxyMask and seemed to be breathing comfortably on an OxyMask. HENMT Other: Face is symmetrical, mucous membranes moist. Eyes Other: Pupils are round equal, conjunctivae are clear, extraocular movements intact Neck Other: No obvious JVD but the neck is quite thick Resp Other: Markedly diminished air entry bilaterally. Slight wheezes. Cardio Rate: regular rate Rhythm: regular rhythm Heart sounds: S1 normal heart sound present and S2 normal heart sound present GI Other: Abdomen is soft and nontender Skin Other: The skin is pale and dry. The skin of the lower extremities is quite edematous with a lot of chronic venous stasis changes. Neuro Other: The patient is awake and alert. Mental status seems clear. Cranial nerves are intact. She seems chronically ill and deconditioned but does not seem to have any focal findings. Extrem Other: The patient has very significant bilateral lower extremity swelling associated with chronic venous stasis skin changes. No obvious asymmetry. Medications Administered Generic Name Dose Route Start Last Admin Trade Name Freq PRN Reason Stop Dose Admin Heparin Sodium (Porcine) 5,000 unit 04/24/24 17:45 04/24/24 18:26 Heparin Sodium,Porcine 5,000 Unit/Ml Vial SUBCUT 5,000 unit Q12H BEN Administration Discontinued Medications Generic Name Dose Route Start Last Admin Trade Name Freq PRN Reason Stop Dose Admin Albuterol Sulfate 2.5 mg/ 0 mg 04/24/24 13:57 04/24/24 14:04 Albuterol/Ipratropium 3 ml INHALE 04/24/24 13:58 5 dose ONCE ONE Administration Albuterol Sulfate 2.5 mg/ 0 mg 04/24/24 16:17 04/24/24 17:09 Albuterol/Ipratropium 3 ml INHALE 04/24/24 16:18 5 dose ONCE ONE Administration Furosemide 80 mg 04/24/24 16:28 04/24/24 17:15 Furosemide 100 Mg/10 Ml Vial IVPUSH 04/24/24 16:29 80 mg ONCE ONE Administration Protocol Vancomycin HCl 1,500 mg/ 500 mls @ 333.333 mls/hr 04/24/24 19:15 04/24/24 19:37 Sodium Chloride IV 04/24/24 20:44 333.33 mls/hr ONCE ONE Administration Methylprednisolone Sodium Succinate 80 mg 04/24/24 16:18 04/24/24 17:16 Methylprednisolone Sod Succ 125 Mg/2 Ml Vial IVPUSH 04/24/24 16:19 80 mg ONCE ONE Administration Medical Decision Making Medical Decision Making [facility] Narrative: The patient is a 64-year-old female with multiple medical problems. She is currently receiving IV vancomycin for a possible osteomyelitis in the right femur. She has been at home. She has a history of COPD. She has a history of diastolic heart failure. She is also morbidly obese and likely has some degree of Pickwickian syndrome. The patient presents with a complaint of worsening shortness of breath over the last couple of days as well as worsening edema of the lower legs. Clinically the patient has diminished breath sounds bilaterally with some slight wheezes. My overall suspicion for a pulmonary embolism and this patient was not very high. I think her shortness of breath is probably more likely related to her chronic problems of COPD, heart failure, and obesity hypoventilation syndrome. A D-dimer was sent and this came back at 242. This is slightly above the upper limit of normal, and if 1 considers age adjusted D-dimer this is a normal D-dimer for this 64-year-old. I am sufficiently reassured by this D-dimer that I do not think further evaluation for a possible pulmonary embolism is necessary. The patient was quite hypercarbic on an initial venous blood gas. Her pCO2 was 99. Despite this she had remarkably clear mental status. She was not showing signs of hypercarbic encephalopathy. The patient had a distinctly higher oxygen requirement however. Her oxygen saturations on 6 L nasal cannula were in the mid 80s. The patient was treated with bronchodilator treatments, IV steroids, and IV furosemide. She was placed for awhile on BiPAP. The hospitalist requested an arterial blood gas which was done before BiPAP was started. This showed a pH of 7.37 with a pCO2 of 83. This suggests a well compensated hypercarbia. The patient tolerated BiPAP for awhile but then requested to be placed on high-flow nasal cannula. This was done. The patient was admitted to the hospitalist service for further management. Lab Data 04/24/24 15:01 04/24/24 15:01 Labs: Lab Results 04/24/24 04/24/24 04/24/24 Range/Units 15:01 15:06 16:39 WBC 7.8 (4.8-10.8) X10*3/uL RBC 3.25 L (4.20-5.50) X10*6/uL Hgb 8.3 L (12.0-16.0) g/dl Hct 29.1 L (37.0-47.0) % MCV 89.5 (80.0-98.0) fL MCH 25.5 L (27.0-33.0) pg MCHC 28.5 L (31.0-35.0) g/dl RDW 15.3 (11.0-16.0) % Plt Count 198 (160-400) X10*3/uL MPV 9.7 (9.4-12.3) fL Immature Gran % (Auto) 0.3 (0.0-0.4) % Neut % (Auto) 78.2 H (45-73) % Lymph % (Auto) 12.1 L (20-40) % [place] % (Auto) 5.6 (2-11) % Eos % (Auto) 3.3 (0-4) % Baso % (Auto) 0.5 (0-2) % Lymph # (Auto) 1.0 L (1.2-4.9) X10*3/uL [place] # (Auto) 0.4 (0.1-1.2) X10*3/uL Eos # (Auto) 0.3 (0.0-0.4) X10*3/uL Baso # (Auto) 0.0 (0.0-0.2) X10*3/uL Abs Immat Gran (auto) 0.02 (0.00-0.03) X10*3/uL Absolute Neuts (auto) 6.1 (2.0-8.3) x10*3/uL Absolute Nucleated RBC 0.000 (0.0-0.012) X10*3/uL Nucleated RBC % (auto) 0.0 (0.0-0.2) /100WBC PT 11.8 (10.9-12.4) SEC INR 1.0 (0.9-1.1) D-Dimer High Sensitivty 242 NG/ML O2 Saturation 95.0 % ABG pH at Pt Temp 7.37 (7.35-7.45) ABG pCO2 at Pt Temp 83 H* (32-45) mmHg ABG pO2 at Pt Temp 77 L (83-108) mmHg ABG HCO3 49 H (22-26) mmol/L ABG Base Excess (Actual) 21.0 mmol/L VBG pH 7.30 L (7.32-7.43) VBG pCO2 99 mmHg VBG pO2 50 mmHg VBG HCO3 49 H (22-26) mmol/L VBG O2 Saturation 73.0 % VBG Base Excess 19.7 mmol/L Sodium 148 H (135-145) mmol/L Potassium 4.6 (3.3-5.1) mmol/L Chloride 97 (96-108) mmol/L Carbon Dioxide 42 H* (22-29) mmol/L Anion Gap 14 (12-20) BUN 17 H (9-16) mg/dL Creatinine 1.13 (0.5-1.4) mg/dL Estim Creat Clear Calc 68.0 Estimated GFR 49 Random Glucose 130 H (60-115) mg/dL Calcium 9.2 (8.4-10.2) mg/dL Magnesium 2.0 (1.6-2.6) mg/dL Total Bilirubin 0.3 (0.0-1.0) mg/dL AST 8 (5-31) U/L ALT < 5 (0-31) U/L Alkaline Phosphatase 98 (39-117) U/L Troponin I High Sens < 2.7 D (<3.5-17.0) ng/L B-Natriuretic Peptide 86 (<100) pg/mL Total Protein 6.9 (6.5-8.0) g/dL Albumin 3.7 (3.5-5.0) g/dL Independent Interpretation I performed an independent interpretation of an: EKG Interpretation: EKG at 14:43 shows normal sinus rhythm at 72 beats per minute. It is a normal EKG. Critical Care Time Critical Care Time Critical Care Time: Yes Total Critical Care Time: 35 Attestation: The patient was critically ill with a high probability of imminent or life-threatening deterioration. ?I spent greater than 30 minutes of discontinuous time evaluating the patient, delivering critical care at the bedside, discussing evaluating data with consultants. ?Critical care time does not include time spent performing separately billable procedures or teaching. ?Time spent performing critical care with 35 minutes. Discharge Plan Discharge Clinical Impression: Shortness of breath, Peripheral edema, Hypercarbia, Acute exacerbation of chronic obstructive pulmonary disease, Diastolic heart failure Patient Disposition: Admitted As Inpatient
[2024-04-24] MEDS: Albuterol Sulfate 2.5 MG, Albuterol/Iprat 2.5/0.5MG 3 ML 3 ML INHALE ×2 (14:04→17:09)
[2024-04-24 15:06] LABS: MANUAL DIFF FLAG NO
[2024-04-24 15:09] LABS: Venous Blood Gas Refer to POC result
[2024-04-24 15:09] LABS: VBG Base Excess 19.7 mmol/L; VBG HCO3 49 mmol/L (22-26); VBG pCO2 99 mmHg; VBG pO2 50 mmHg
[2024-04-24 15:13] LABS: Basophils Percent Auto 0.5 % (0-2); Eosinophils Absolute Auto 0.3 X10*3/uL (0.0-0.4); Eosinophils Percent Auto 3.3 % (0-4); Hematocrit 29.1 % (37.0-47.0); Hemoglobin 8.3 g/dl (12.0-16.0); Imm Gran Abs Auto 0.02 X10*3/uL (0.00-0.03); Imm Gran Pct Auto 0.3 % (0.0-0.4); Lymphocytes Percent Auto 12.1 % (20-40); Mean Corpuscular HGB Conc 28.5 g/dl (31.0-35.0); Mean Corpuscular Hemoglobin 25.5 pg (27.0-33.0); Mean Corpuscular Volume 89.5 fL (80.0-98.0); Mean Platelet Volume 9.7 fL (9.4-12.3); Monocytes Absolute Auto 0.4 X10*3/uL (0.1-1.2); Monocytes Percent Auto 5.6 % (2-11); Neutrophils Absolute Auto 6.1 x10*3/uL (2.0-8.3); Neutrophils Percent Auto 78.2 % (45-73); Platelet Count 198 X10*3/uL (160-400); Red Blood Count 3.25 X10*6/uL (4.20-5.50); Red Cell Distribution Width 15.3 % (11.0-16.0); White Blood Count 7.8 X10*3/uL (4.8-10.8)
[2024-04-24 15:14] LABS: Prothrombin Time 11.8 SEC (10.9-12.4)
[2024-04-24 15:29] LABS: Alanine Aminotransferase < 5 U/L (0-31); Albumin Level 3.7 g/dL (3.5-5.0); Alkaline Phosphatase 98 U/L (39-117); Anion Gap 14 (12-20); Aspartate Amino Transferase 8 U/L (5-31); Bilirubin Total 0.3 mg/dL (0.0-1.0); Blood Urea Nitrogen 17 mg/dL (9-16); Calcium 9.2 mg/dL (8.4-10.2); Carbon Dioxide 42 mmol/L (22-29); Chloride 97 mmol/L (96-108); Estimated Glomerular Filt Rate 49; Glucose Random 130 mg/dL (60-115); Potassium 4.6 mmol/L (3.3-5.1); Sodium 148 mmol/L (135-145); Total Protein 6.9 g/dL (6.5-8.0)
[2024-04-24 15:30] LABS: B Type Natriuretic Peptide 86 pg/mL (<100)
[2024-04-24 15:32] LABS: Troponin-I High Sensitivity < 2.7 ng/L (<3.5-17.0)
[2024-04-24 15:58] LABS: D Dimer High Sensitivity 242 NG/ML
--- NOTE | 2024-04-24 16:27 | MHC.EDTECH ---
This pct assumed care of Patient at 1500 ,Patient was change into hospital attire ,[place] in Place ,vitals taken ,Provider and RN aware of Pt low bp and low o2 sat .Call chavez within Pt reach .
[2024-04-24 16:49] LABS: ABG HCO3 49 mmol/L (22-26); ABG pCO2 83 mmHg (32-45); ABG pH 7.37 (7.35-7.45); ABG pO2 77 mmHg (83-108)
--- NOTE | 2024-04-24 17:06 | P.HPHOSP_ITS ---
History of Present Illness Date of Service: 04/24/24 Chief Complaint: SOB 64 year old women presenting with increased shortness of breath. Patient has a history of COPD and congestive heart failure. She was recently discharged from [facility] on 04/05/2024. At that time she was treated with IV Lasix, systemic steroids and bronchodilators. She returned back to baseline and was discharged home. This time she reports that she continued to have shortness of breath and her partner thought she seemed more sleepy, she had more lower extremity edema worse over the last several days. She was also recently hospitalized at [facility]. She had initially presented to the [place] [facility] office for right chronic thigh sinus track with the wound increasing in size and subcutaneous drug device exposed. She has a history of open supracondylar femur fracture 5 years ago with surgical treatment and post injury/postoperative infectious complications and fracture healing complications. She has been treated with infection suppression with doxycycline. She underwent surgical procedure to remove thigh subcutaneous drug delivery device with excisional debridement and placement of wound VAC., Operative cultures showed coordinated bacteria and on identifiable Gram-positive coccobacillus organism. She had a PICC line placed and was started on IV vancomycin plan for 6 weeks. In the ER, she was noted to be mildly lethargic, hypoxic. She was placed on BiPAP, she does use BiPAP at home at bedtime. Her ABGs seem compensated. In the ER she was given IV Lasix, Solu-Medrol, albuterol. She will be admitted for further management and treatment of acute hypoxic respiratory failure secondary to COPD and possibly CHF. Review of Systems 2 Review of Systems: Denies any recent fever chills or decrease in appetite respiratory See HPI cardiovascular is adjustment of any PND or edema gastrointestinal denies any dysphagia abdominal pain nausea vomiting or diarrhea genitourinary denies any dysuria frequency or hematuria musculoskeletal denies any joint pain or swelling neuropsych denies any weakness or seizures all other systems reviewed are negative [facility] Medical History (Updated 04/24/24 @ 18:00 by Branden Monge MD) Enterococcus faecalis infection MSSA (methicillin susceptible Staphylococcus aureus) MRSA (methicillin resistant staph aureus) culture positive Encounter for management of wound VAC Chronic osteomyelitis Hypertension Iron deficiency anemia Open wound of lower extremity COPD (chronic obstructive pulmonary disease) Femur fracture Crohn's colitis Morbid obesity due to excess calories Closed tibia fracture Acute on chronic respiratory failure with hypoxia and hypercapnia Wound of left lower extremity Nonrheumatic mitral (valve) stenosis Acute on chronic right heart failure Paroxysmal atrial fibrillation Dyspnea ALEKSEY treated with BiPAP Hypoventilation associated with obesity Pickwickian syndrome Chronic hypercapnic respiratory failure Opioid use disorder Family History Other Adopted Surgical History (Updated 04/24/24 @ 17:41 by Meagan Farrar NP) Hx of cholecystectomy History of open reduction and internal fixation (ORIF) procedure Status post open reduction and internal fixation (ORIF) of fracture Recent surgical procedure on lower extremity Social History Household Members: Significant Other Household Members Other:: , Hoa. Daughter Carolyn, 21. Daughter's Boyfriend, 22. Susanna, 21 Housing: House Do you presently have visiting nurse or other home services: Yes (manager document control and vna) Alcohol intake: former Year quit: 1989 Patient Tobacco Use Status: Former Tobacco user Years Smoked: 25 Smoked in Last 30 Days: No Second Hand Smoke Exposure: No Use of substances other than those prescribed or required for medical reasons: No Advance Directives: Yes Advance Directives on File: Yes Advance Directives Date on File: 12/16/20 Do you have a plan to hurt others: No Plan Nutrition Risks: No Nutritional Risk service: No Current occupational status: disabled Meds Allergies Allergy/AdvReac Type Severity Reaction Status Date / Time gabapentin Allergy Mild Anxiety Verified 04/24/24 13:52 morphine [MORPHINE] Allergy Unknown ANAPHALAXIS, Verified 04/24/24 13:52 anaphylaxis propofol [From Diprivan] Allergy Anaphylaxis Verified 04/24/24 13:52 Home Medications ?Medication ?Instructions ?Recorded ?Confirmed ?Last Taken ?Type theophylline 400 mg 400 mg PO DAILY 01/18/23 04/24/24 04/24/24 History capsule,extended release 24 hr (Roque-24) vancomycin 1.5 gram/300 mL in 0.9 1.5 g IV Q24H 04/03/24 04/24/24 04/23/24 History % sodium chloride intravenous clonazepam 0.5 mg tablet 0.5 mg PO DAILY PRN Anxiety 04/24/24 04/24/24 Unknown History clonazepam 1 mg tablet 1 mg PO DAILY 04/24/24 04/24/24 Unknown History fluticasone fur. 100 mcg-umeclid 1 ea inhalation DAILY 04/24/24 04/24/24 04/24/24 History 62.5 mcg-vilant 25 mcg inhalat.powder (Trelegy Ellipta) furosemide 20 mg tablet 40 mg PO DAILY 04/24/24 04/24/24 04/24/24 History oxycodone 5 mg tablet 5 mg PO Q6H PRN Pain 04/24/24 04/24/24 Unknown History Physical Exam 2 Vital Signs and Narrative: Vital Signs: Last Vital Signs Temp 98.4 F 04/24/24 16:24 Pulse 68 04/24/24 16:24 Resp 20 04/24/24 17:01 BP 142/46 H 04/24/24 16:24 Pulse Ox 89 L 04/24/24 16:24 O2 Del Method High Flow Nasal C annula 04/24/24 16:24 O2 Flow Rate 7 04/24/24 16:24 Oxygen Flow Rate 6 04/24/24 13:48 BMI result Body Mass Index 43.6 Results Labs 04/24/24 15:01 04/25/24 04:57 Labs: Laboratory Results - last 24 hr 04/24/24 04/24/24 04/24/24 15:01 15:06 16:39 MCV 89.5 MCH 25.5 L MCHC 28.5 L RDW 15.3 Plt Count 198 MPV 9.7 Immature Gran % (Auto) 0.3 Neut % (Auto) 78.2 H Lymph % (Auto) 12.1 L [place] % (Auto) 5.6 Eos % (Auto) 3.3 Baso % (Auto) 0.5 Lymph # (Auto) 1.0 L [place] # (Auto) 0.4 Eos # (Auto) 0.3 Baso # (Auto) 0.0 Abs Immat Gran (auto) 0.02 Absolute Neuts (auto) 6.1 Absolute Nucleated RBC 0.000 Nucleated RBC % (auto) 0.0 PT 11.8 INR 1.0 D-Dimer High Sensitivty 242 O2 Saturation 95.0 ABG pH at Pt Temp 7.37 ABG pCO2 at Pt Temp 83 H* ABG pO2 at Pt Temp 77 L ABG HCO3 49 H ABG Base Excess (Actual) 21.0 VBG pH 7.30 L VBG pCO2 99 VBG pO2 50 VBG HCO3 49 H VBG O2 Saturation 73.0 VBG Base Excess 19.7 Anion Gap 14 Estim Creat Clear Calc 68.0 Estimated GFR 49 Random Glucose 130 H Calcium 9.2 Magnesium 2.0 Total Bilirubin 0.3 AST 8 ALT < 5 Alkaline Phosphatase 98 Troponin I High Sens < 2.7 D B-Natriuretic Peptide 86 Total Protein 6.9 Albumin 3.7 Imaging Radiologist's Impressions: Impressions Chest X-Ray 04/24/24 14:02 IMPRESSION: Cardiomegaly with mild pulmonary vascular congestion, slightly better when compared to prior. Electronically signed by: Fercho Dacosta MD 04/24/2024 03:36 PM EDT RP Assessment and Plan (1) Diastolic heart failure: Status: Acute (2) Acute exacerbation of chronic obstructive pulmonary disease: Status: Acute Plan 64-year-old woman admitted with acute on chronic hypoxic respiratory failure secondary to COPD exacerbation and possible heart failure Acute on chronic hypoxic respiratory failure, Secondary to COPD and and possible heart failure with preserved ejection fraction Will treat with supplemental oxygen and her BiPAP at night, keep oxygen saturation greater than 90% Solu-Medrol, bronchodilators IV Lasix Cardiology consultation Monitor on telemetry Echocardiogram Primary respiratory acidosis, with secondary metabolic alkalosis Mostly compensated BiPAP as needed Hypernatremia Mild Follow closely Chronic osteomyelitis with partial hardware removal Underwent right thigh subcutaneous drug delivery device removal, right thigh excisional debridement and wound VAC placement Continue IV vancomycin, end date May 02 (total 6 weeks) Normocytic anemia Stable H&H Obstructive sleep apnea On BiPAP at night, will set up for bedtime Obesity class 3 Discussed importance of weight management as this may be contributing to worsening of other comorbidities DVT prophylaxis with heparin Full code Quality Stroke Does the patient have a stroke diagnosis?: No VTE Prior VTE?: No VTE Risk Level:: Medical - moderate - high VTE Device Contraindication: Treatment Not Indicated VTE Drug Contraindication: N/A - Med Ordered
[2024-04-24] MEDS: Furosemide 100 MG/10 ML VIAL 80 MG IVPUSH (17:15)
[2024-04-24] MEDS: methylPREDNISolone Sod Succ 125 MG/2 ML VIAL 80 MG IVPUSH (17:16)
--- OUTSIDE RECORDS SUMMARY | 2024-04-24 18:18 | XMS_ITS | Patient Health Record ---
Author Organization [facility] [place] Address [address] [place] [address] Care Team Providers Care Professor Of Criminal Justice Name Role Phone Gal Solorio MD Primary Care Provider Unavail able Ritchie Werner Unavailable [phone] ALLERGIES No Known Allergies REASON FOR REFERRAL [...] Risk SNOMED Code Notes Problem Atherosclerosis of [place] artery of both lower extremities, with unspecified presence of clinical manifestation (I70.203) Active confirmed Atherosclerosis of [place] arteries of the extremities ([id number]) PLAN OF TREATMENT Pending Test Test Name Order Date [id number] NAIL, 1-5 03/04/2023 27550-ODIM SKIN LESIONS, 2 TO 4 03/04/20 23 H7380-AMYENDSD DYSTROPHIC NAILS ANY # Insurance Providers Payer Name Payer Address Payer Phone Subscriber Number Group Number Insured Name Patient Relationship to Insured Coverage Start Date Coverage End Date Medicare [employer] [address] [place] [address] [id number] Sample, Brianne Self - patient is the [...]
--- OUTSIDE RECORDS SUMMARY | 2024-04-24 18:18 | XMS_ITS ---
Author Organization [facility] [place] [place] Address [address] [place] [address] Care Team Providers Care Lead Sales Consultant Name Role Phone Gal Solorio MD Primary Care Provider Unavail able Ritchie Werner Unavailable [phone] ALLERGIES No Known Allergies REASON FOR VISIT [...] Risk SNOMED Code Notes Problem Atherosclerosis of [place] artery of both lower extremities, with unspecified presence of clinical manifestation (I70.203) Active confirmed Atherosclerosis of [place] arteries of the extremities ([id number]) VITAL SIGNS Height 5ft 1in in 03/04/2023 Weight 270 lbs 03/04/2023 BMI 51.01 kg/m2 03/04/2023 PROCEDURES Procedure Date Ordered Date Performed Result Body Sit e 07910-TTPAFTZ NAIL, 1-5 03/04/2023 N/A 38630-NQGJ SKIN LESIONS, 2 TO 4 03/04/2023 N/A [id number] DYSTROPHIC NAILS ANY # 03/04/2023 N/A Encounters Encounter Location Date Provider Diagnosis [facility] [address] [address] 03/04/2023 Ritchie Werner Atherosclerosis of [place] artery of both lower extremities, with unspecified [...] Notes Treatment Clinical Notes 03/04/2023 Atherosclerosis of [place] artery of both lower extremities, with unspecified [...] TREATMENT Pending Test Test Name Order Date [id number] NAIL, 1-5 03/04/2023 12823-PPTC SKIN LESIONS, 2 TO 4 03/04/20 23 [id number] DYSTROPHIC NAILS ANY # Next Appt Details Follow Up: prn, Reason: Procedure Notes * Category Sub-Category Detail Notes Keratoma Treatment Parring or Cutting o f Benign Hyperkeratotic Lesion(s) 77058 ( 2-4 Lesions ) - The Benign [...] as necessary. Patient chooses, no pharmaceutical tx (28500) Nail Reduction Nail Reduction Trimming of dyst rophic nails performed to reduce/remove overall nail length and girth, by manual and electrical means with use of a nail nipper and/or dremel, to more viable healthy nail plate or bed tissue 6-10 (Q5488-H4) Progress Notes * Examination Category Sub-Category Detail [...]
--- OUTSIDE RECORDS SUMMARY | 2024-04-24 18:18 | XMS_ITS ---
Author Organization [facility] Address [address] [facility] [place] [address] Care Team Providers Care Assembler Truck Trailer Name Role Phone Gal Solorio MD Primary Care Provider Unavail able Ritchie Werner Unavailable [phone] Rowan Nettles Unavailable [phone] Encounters Encounter Location Date Provider Diagnosis [facility] [place] [address] [facility] [place] [address] 02/24/2023 Rowan Nettles PLAN OF TREATMENT No Information
--- OUTSIDE RECORDS SUMMARY | 2024-04-24 18:18 | XMS_ITS ---
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
[2024-04-24] MEDS: Heparin Sodium,Porcine 5,000 UNIT/ML VIAL 5000 UNIT SUBCUT (18:26)
--- NOTE | 2024-04-24 18:51 | PHA.MEDREC ---
Addendum entered by Stew Contreras 04/24/24 19:00: Reviewed Original Note: Pharmacy Consult ? Medication Reconciliation Pharmacy has completed the medication reconciliation. Spoke to patient to confirm med list. Patient states she no longer takes Aspirin 81 mg , Docusate sodium and completed her treatment on Bactrim. patient states she is on oxycodone 15 mg q 6 h , however most recant claim is for 5 mg Q6H 04/13/24 and Clonazepam 1 mg daily was on 04/13/24 and [facility] Patient says she is on Vancomycin IV Q24H, however she doesn't know the correct dosing. She gets it from [facility] and Her last dose was last night.
--- NOTE | 2024-04-24 19:10 | PHA.PROG ---
Admission Date/Time: April 24, 2024 17:42 Indication: Bacteremia Weight in k.47 kg Adjusted body weight in Kg: [place] body weight in Kg: Obesity Dosing Indication % IBW: Serum Creatinine - Last 168 Hours 04/24/24 15:01 Creatinine 1.13 Estimated CrCl and GFR - Last 168 Hours 04/24/24 15:01 Estim Creat Clear Calc 68.0 Estimated GFR 49 Vancomycin Loading Dose: N/A Current Vancomycin Dosing Regimen: 1.5g q24h Vancomycin Monitoring using AUC goal of 400 - 600 range with trough as surrogate marker: AUC = 510 mg/L Date and Time for next Vancomycin Level to be drawn: 04/25/24 @ 1800 Pharmacist Comments on Vancomycin Plan: Pt on Vancomycin outpatient, per med rec she doesn't know her dose but knows she had it yesterday evening. Will skip loading dose since pt should be at steady state now, and begin 1.5g x 1 and check a level tomorrow. If still therapeutic, will continue regimen. Vancomycin dosing will take advantage of [employer] as a clinical decision support tool that uses Bayesian modeling to calculate individual patient's pharmacokinetic parameters and forecast the patient's drug concentration time course with the target goal AUC 24 range of 400 - 600 mg/L/hr.
--- NOTE | 2024-04-24 19:14 | PC.NURSE ---
This RN assumed pt care @ 1900. Pt a&Ox4, no signs of distress. Pt sitting in bed, watching tv Pt reports 7/10 left leg pain. Plan of care ongoing.
[2024-04-24] MEDS: vancomycin HCL 1,500 MG in 0.9 % Sodium Chloride 500 ML 333.33 MG IV (19:37)
--- NOTE | 2024-04-24 19:39 | MHC.EDTECH ---
Patient 1999 ,rounding done ,vitals taken ,900 ml empty from pure wick canister ,Patient belongings list done ,Call chavez within Pt reach .
[2024-04-24 19:41] LABS: ABG Refer to POC result
--- NOTE | 2024-04-24 19:45 | PC.NURSE ---
Pt medicated per sep. Pt remains on 6L nc 90% vitals stable at this time Plan of care ongoing.
[2024-04-24] MEDS: Albuterol Sulfate (0.083%) 2.5 MG/3 ML VIAL.NEB INHALE (21:26)
--- NOTE | 2024-04-24 22:27 | MHC.EDTECH ---
2200 rounding done ,vitals taken ,[place] canister empty for 1100 ml ,Patient was moved into a hospital bed ,Pillow Placed underneath Pt feet .Patient comfortable watching television ,Call chavez within Pt reach .
[2024-04-24] MEDS: oxyCODONE HCl Immed Release 5 MG TABLET 10 MG PO (22:37)
--- NOTE | 2024-04-24 22:38 | PC.NURSE ---
Pt medicated per [facility] Plan of care ongoing.
[2024-04-25] VITALS (8 sets, daily range): BP systolic 126–188; BP diastolic 54–76; PULSE 67–84; RESP 16–21; TEMP 36–37.2; O2SAT 90–96; BMI 46.5
[2024-04-25] MEDS: 0.9 % Sodium Chloride Flush 3 ML SYRINGE IVFLUSH ×3 (00:30→17:58)
--- NOTE | 2024-04-25 00:39 | PC.NURSE ---
Pt reports she had picc line in place prior to coming to the ED Pt medicated per [facility] Plan of care ongoing.
--- NOTE | 2024-04-25 00:41 | PC.NURSE ---
Pt requested and lights dimmed Plan of care ongoing.
--- NOTE | 2024-04-25 01:09 | MHC.EDTECH ---
Patient midnight rounding done ,vitals taken ,Patient was reposition and boosted up in bed ,Patient awake watching television ,Call chavez within Pt reach .
--- NOTE | 2024-04-25 03:53 | MHC.EDTECH ---
0400 rounding done ,vitals taken ,Patient sleeping ,no apparent distress noted ,Plan of care continue .
[2024-04-25 05:13] LABS: Basophils Percent Auto 0.2 % (0-2); Hematocrit 27.1 % (37.0-47.0); Hemoglobin 7.7 g/dl (12.0-16.0); Imm Gran Abs Auto 0.03 X10*3/uL (0.00-0.03); Imm Gran Pct Auto 0.3 % (0.0-0.4); Lymphocytes Absolute Auto 0.3 X10*3/uL (1.2-4.9); Lymphocytes Percent Auto 3.6 % (20-40); MANUAL DIFF FLAG SCAN; Mean Corpuscular HGB Conc 28.4 g/dl (31.0-35.0); Mean Corpuscular Hemoglobin 25.3 pg (27.0-33.0); Mean Corpuscular Volume 89.1 fL (80.0-98.0); Mean Platelet Volume 10.1 fL (9.4-12.3); Monocytes Absolute Auto 0.1 X10*3/uL (0.1-1.2); Monocytes Percent Auto 0.6 % (2-11); Neutrophils Absolute Auto 8.3 x10*3/uL (2.0-8.3); Neutrophils Percent Auto 95.3 % (45-73); Platelet Count 192 X10*3/uL (160-400); Red Blood Count 3.04 X10*6/uL (4.20-5.50); Red Cell Distribution Width 14.9 % (11.0-16.0); SCAN SMEAR FLAG 1; White Blood Count 8.7 X10*3/uL (4.8-10.8)
[2024-04-25 05:35] LABS: Alanine Aminotransferase 5 U/L (0-31); Albumin Level 3.3 g/dL (3.5-5.0); Alkaline Phosphatase 91 U/L (39-117); Anion Gap 16 (12-20); Aspartate Amino Transferase 7 U/L (5-31); Bilirubin Total 0.3 mg/dL (0.0-1.0); Blood Urea Nitrogen 21 mg/dL (9-16); Calcium 8.8 mg/dL (8.4-10.2); Carbon Dioxide 40 mmol/L (22-29); Chloride 96 mmol/L (96-108); Estimated Glomerular Filt Rate 44; Glucose Random 208 mg/dL (60-115); Potassium 4.6 mmol/L (3.3-5.1); Sodium 147 mmol/L (135-145); Total Protein 6.4 g/dL (6.5-8.0)
[2024-04-25] MEDS: Heparin Sodium,Porcine 5,000 UNIT/ML VIAL 5000 UNIT SUBCUT ×2 (05:37→17:58)
--- NOTE | 2024-04-25 05:43 | PC.NURSE ---
Pt medicated per sep Pt requested and given ice chips Plan of care ongoing.
--- NOTE | 2024-04-25 05:53 | PC.NURSE ---
Hospitalist notified and aware of pts bicard of 40 No new orders at this time Plan of care ongoing
--- NOTE | 2024-04-25 06:08 | MHC.EDTECH ---
0600 Rounding done,Patient awake watching television ,Patient was change and reposition ,radha care given ,clean purewick in Place ,vitals done ,fresh ice given and clean blanket ,Call chavez within Pt reach .
--- NOTE | 2024-04-25 07:00 | CA_ITS ---
Transthoracic Echocardiogram Patient (Last, First, Middle): Brianne Chaudhary, Gender: Female Date of : 1960 Age: 64 Procedure Date: 04/25/2024 Procedure Type: Transthoracic Echocardiogram Location: ER Height: 167. cm Weight: 122.47 kg BSA: 2.27 m2 Heart Rate: 84 bpm BP: 148 / 60 mmHg Machine Maintenance Technician: BRENNEN Referring MD: Meagan Farrar NP Symptoms: CHF Study Quality: Fair ECG Rhythm: Sinus Conclusions: - Normal left ventricular size and systolic function. There is mildly increased left ventricular wall thickness. The visually estimated ejection fraction is between 60-65%. - Mildly increased right ventricular cavity size. There is normal right ventricular systolic function. - The left atrium is severely dilated. - There is mild aortic valve stenosis. - There is severe mitral annular calcification. - Significantly elevated right atrial pressure. Severe pulmonary hypertension is present. Findings Left Ventricle Normal left ventricular size and systolic function. There is mildly increased left ventricular wall thickness. The visually estimated ejection fraction is between 60-65%. There is no evidence of regional wall motion abnormalities. Diastolic function is indeterminate on the basis of available data. Right Ventricle Mildly increased right ventricular cavity size. There is normal right ventricular systolic function. Atria The left atrium is severely dilated. Aortic Valve There is a normal trileaflet aortic valve. There is mild calcification of the aortic valve. There is mild aortic valve stenosis. There is no aortic valve regurgitation. Mitral Valve There is severe mitral annular calcification. There is no mitral valve regurgitation. There is no mitral valve stenosis. Pulmonic Valve The pulmonic valve was not well visualized. Tricuspid Valve Likely normal tricuspid valve structure and function. Significantly elevated right atrial pressure. Severe pulmonary hypertension is present. Great Vessels All visible segments of the aorta are normal in size. The pulmonary artery was not well visualized. Venous The inferior vena cava is dilated and collapses less than 50% with inspiration. Pericardium/Pleural There is no evidence of pericardial effusion. Prior Study Comparison Changes noted compared to prior study dated: 05/04/2022. Severe LA dilation. Mild . Severe MAC. Severe pulm HTN. Measurements 2D Linear Measurements IVSd: 1.19 0.6-0.9/0.6-1.0 cm LVIDd: 4.63 3.9-5.3/4.2-5.9 cm LVIDd Index: 2.04 2.4-3.2/2.2-3.1 cm/m2 LVIDs: 3.31 2.0-3.6 cm LVPWd: 1.07 0.7-1.1 cm LA Diam: 4.40 2.7-3.8/3.0-4.0 cm LAIDs Index: 1.94 1.5-2.3 cm/m2 LV Mass: 236.94 67-162/88-224 g LV Mass Index: 104.38 43-95/49-115 g/m2 LVOT Diam: 1.90 3.0+(-)1.3 cm 2D Systolic Function EF 4C: 70.40 >55% EF 2C: 64.20 >55% EF BiP: 67.20 >55% Mitral Valve MV VTI: 0.51 MV Pk Shahram: 2.07 MV Mn Shahram: 1.36 MV Pk Grad: 17.00 MV Mn Grad: 8.00 MV Pk E: 1.54 MV PK A: 1.78 MV Decel Time: 287.00 E/A: 0.90 E'Lateral: 7.94 E'Medial: 6.96 E/E' Med: 22.10 E/E' Lat: 19.40 PHT: 84.00 MVA PHT: 2.62 MVA Continuity: 1.99 Decel Fannin: 5.37 Aortic Valve AoV Pk Shahram: 2.62 AoV Mn Shahram: 1.72 AoV VTI: 0.56 AoV Pk Grad: 27.00 Aov Mn Grad: 14.00 RENATA Cont.VTI: 1.82 LVOT LVOT Pk Shahram: 1.58 LVOT Mn Shahram: 1.12 LVOT VTI: 0.36 LVOT Pk Grad: 10.00 LVOT Mn Grad: 6.00 LVOT Diam: 1.90 LVOT Area: 2.84 Diastolic Function MV Pk E: 1.54 MV Pk A: 1.78 E/A: 0.90 E'Medial: 6.96 E/E' Med: 22.10 E' Laterial: 7.94 E/E' Lat: 19.40 Right Ventricle TAPSE (mm): 36.10 TVS' Shahram: 13.80 Tricuspid Valve TR Pk Shahram: 3.14 TR Pk Grad: 39.00 RA Press: 15.00 RVSP: 60.00 Great Vessels Aorta Sinus of Valsalva: 3.30 2.0-3.5 cm Ao Asc: 2.80 2.1-3.4 cm Pulmonary Valve PV Pk Shahram: 1.62 Peak PV Grad: 10.00 Updated in Other Vendor System with Status of Final Zach Calle MD electronically signed on 04/25/2024 7:28:34 PM with status of Final
[2024-04-25 07:33] LABS: SLIDE REVIEW VERIFIED
[2024-04-25 08:48] LABS: Adenovirus PCR Not Detected (Not Detect.); Bordetella parapertussis PCR Not Detected (Not Detect.); Bordetella pertussis PCR Not Detected (Not Detect.); Chlamydia pneumoniae PCR Not Detected (Not Detect.); Coronavirus 229E PCR Not Detected (Not Detect.); Coronavirus HKU1 PCR Not Detected (Not Detect.); Coronavirus NL63 PCR Not Detected (Not Detect.); Coronavirus OC43 PCR Not Detected (Not Detect.); Human metapneumovirus PCR Not Detected (Not Detect.); Influenza A PCR Not Detected (Not Detect.); Influenza B PCR Not Detected (Not Detect.); Mycoplasma pneumoniae PCR Not Detected (Not Detect.); Parainfluenza 1 PCR Not Detected (Not Detect.); Parainfluenza 2 PCR Not Detected (Not Detect.); Parainfluenza 3 PCR Not Detected (Not Detect.); Parainfluenza 4 PCR Not Detected (Not Detect.); RSV PCR Not Detected (Not Detect.); Rhino/Enterovirus PCR Not Detected (Not Detect.)
[2024-04-25] MEDS: methylPREDNISolone Sod Succ 40 MG/ML VIAL IVPUSH ×2 (08:56→21:21)
[2024-04-25] MEDS: Doxycycline Hyclate 100 MG in 0.9 % Sodium Chloride 250 ML 166.67 MG IV ×2 (08:56→19:30)
[2024-04-25] MEDS: Furosemide 20 MG/2 ML VIAL IVPUSH (08:56)
[2024-04-25] MEDS: clonazePAM 1 MG TABLET PO (08:57)
[2024-04-25] MEDS: oxyCODONE HCl Immed Release 5 MG TABLET 10 MG PO (09:08)
--- NOTE | 2024-04-25 09:14 | HO.PM.IMPN ---
Subjective Subjective Date of Service: 04/25/24 Review of Systems Follow up CHF Still sob but feeling better Physical Exam Vital Signs: Vital Signs: Last Vital Signs Temp 98.2 F 04/25/24 06:07 Pulse 76 04/25/24 06:07 Resp 16 04/25/24 06:07 BP 166/64 H 04/25/24 08:56 Pulse Ox 95 04/25/24 06:07 O2 Del Method BiPAP 04/25/24 06:07 O2 Flow Rate 6 04/25/24 06:07 Oxygen Flow Rate 6 04/24/24 13:48 BMI result Body Mass Index 43.6 Appearing in no acute distress lung sounds are clear to auscultation heart regular rate rhythm, clear S1, S2 positive bowel sounds, abdomen is soft, nontender, obese neuro patient is alert x3, no focal deficits Chronic LE disoloration Objective Data Active Medications Acetaminophen (Acetaminophen 325 Mg Tablet) 650 mg PO Q6H PRN PRN Reason: Pain, Mild (Pain Scale 1-3), fever or headache Albuterol Sulfate (Albuterol Sulfate (0.083%) 2.5 Mg/3 Ml Vial.Neb) 2.5 mg INHALE RQ4H WHILE AWAKE [facility] Last Admin: 04/24/24 21:26 Dose: 2.5 mg Documented By: XIMENA Calcium Carbonate (Calcium Carbonate 750 Mg Tab.Chew) 750 mg PO Q4H PRN PRN Reason: Heartburn Clonazepam (Clonazepam 0.5 Mg Tablet) 0.5 mg PO DAILY PRN PRN Reason: Anxiety Clonazepam (Clonazepam 1 Mg Tablet) 1 mg PO DAILY [facility] Last Admin: 04/25/24 08:57 Dose: 1 mg Documented By: LAURIE Furosemide (Furosemide 20 Mg/2 Ml Vial) 20 mg IVPUSH BID@0900,1800 [facility]; Protocol Last Admin: 04/25/24 08:56 Dose: 20 mg Documented By: LAURIE Heparin Sodium (Porcine) (Heparin Sodium,Porcine 5,000 Unit/Ml Vial) 5,000 unit SUBCUT Q12H [facility] Last Admin: 04/25/24 05:37 Dose: 5,000 unit Documented By: DEREK Vancomycin HCl 1,500 mg/ (Sodium Chloride) 500 mls @ 333.333 mls/hr IV Q24H [facility] Doxycycline Hyclate 100 mg/ (Sodium Chloride) 250 mls @ 166.67 mls/hr IV Q12H [facility] Last Admin: 04/25/24 08:56 Dose: 166.67 mls/hr Documented By: LAURIE Magnesium Hydroxide (Milk Of Magnesia 30 Ml Oral.Susp) 30 ml PO DAILY PRN PRN Reason: Constipation Melatonin (Melatonin 3 Mg Tablet) 6 mg PO BEDTIME PRN PRN Reason: Insomnia Methylprednisolone Sodium Succinate (Methylprednisolone Sod Succ 40 Mg/Ml Vial) 40 mg IVPUSH Q12H [facility] Last Admin: 04/25/24 08:56 Dose: 40 mg Documented By: LAURIE Ondansetron HCl (Ondansetron Hcl 4 Mg/2 Ml Vial) 4 mg IVPUSH Q8H PRN PRN Reason: Nausea and Vomiting Oxycodone HCl (Oxycodone Hcl Immed Release 5 Mg Tablet) 10 mg PO Q6H PRN PRN Reason: Pain, Moderate(Pain Scale 4-6) Last Admin: 04/25/24 09:08 Dose: 10 mg Documented By: LAURIE Pharmacy Consult (Consult Rx Vancomycin Dosing) 1 each MISCELLANE DAILY PRN PRN Reason: Consult order Sodium Chloride (0.9 % Sodium Chloride Flush 3 Ml Syringe) 3 ml IVFLUSH QSHIFT [facility] Last Admin: 04/25/24 08:56 Dose: 3 ml Documented By: LAURIE Labs 04/25/24 04:57 04/25/24 04:57 Labs: Laboratory Results - last 24 hr 04/24/24 04/24/24 04/24/24 15:01 15:06 16:39 MCV 89.5 MCH 25.5 L MCHC 28.5 L RDW 15.3 Plt Count 198 MPV 9.7 Immature Gran % (Auto) 0.3 Neut % (Auto) 78.2 H Lymph % (Auto) 12.1 L [place] % (Auto) 5.6 Eos % (Auto) 3.3 Baso % (Auto) 0.5 Lymph # (Auto) 1.0 L [place] # (Auto) 0.4 Eos # (Auto) 0.3 Baso # (Auto) 0.0 Abs Immat Gran (auto) 0.02 Absolute Neuts (auto) 6.1 Absolute Nucleated RBC 0.000 Nucleated RBC % (auto) 0.0 Smear Tech's Comments PT 11.8 INR 1.0 D-Dimer High Sensitivty 242 O2 Saturation 95.0 ABG pH at Pt Temp 7.37 ABG pCO2 at Pt Temp 83 H* ABG pO2 at Pt Temp 77 L ABG HCO3 49 H ABG Base Excess (Actual) 21.0 VBG pH 7.30 L VBG pCO2 99 VBG pO2 50 VBG HCO3 49 H VBG O2 Saturation 73.0 VBG Base Excess 19.7 Anion Gap 14 Estim Creat Clear Calc 68.0 Estimated GFR 49 Random Glucose 130 H Calcium 9.2 Magnesium 2.0 Total Bilirubin 0.3 AST 8 ALT < 5 Alkaline Phosphatase 98 Troponin I High Sens < 2.7 D B-Natriuretic Peptide 86 Total Protein 6.9 Albumin 3.7 04/25/24 04:57 MCV 89.1 MCH 25.3 L MCHC 28.4 L RDW 14.9 Plt Count 192 MPV 10.1 Immature Gran % (Auto) 0.3 Neut % (Auto) 95.3 H Lymph % (Auto) 3.6 L [place] % (Auto) 0.6 L Eos % (Auto) 0.0 Baso % (Auto) 0.2 Lymph # (Auto) 0.3 L [place] # (Auto) 0.1 Eos # (Auto) 0.0 Baso # (Auto) 0.0 Abs Immat Gran (auto) 0.03 Absolute Neuts (auto) 8.3 Absolute Nucleated RBC 0.000 Nucleated RBC % (auto) 0.0 Smear Tech's Comments VERIFIED PT INR D-Dimer High Sensitivty O2 Saturation ABG pH at Pt Temp ABG pCO2 at Pt Temp ABG pO2 at Pt Temp ABG HCO3 ABG Base Excess (Actual) VBG pH VBG pCO2 VBG pO2 VBG HCO3 VBG O2 Saturation VBG Base Excess Anion Gap 16 Estim Creat Clear Calc 62.0 Estimated GFR 44 Random Glucose 208 H Calcium 8.8 Magnesium Total Bilirubin 0.3 AST 7 ALT 5 Alkaline Phosphatase 91 Troponin I High Sens B-Natriuretic Peptide Total Protein 6.4 L Albumin 3.3 L Assessment and Plan (1) Diastolic heart failure: Status: Acute (2) Acute exacerbation of chronic obstructive pulmonary disease: Status: Acute Plan 64-year-old woman admitted with acute on chronic hypoxic respiratory failure secondary to COPD exacerbation and possible heart failure Acute on chronic hypoxic respiratory failure, Secondary to COPD and heart failure with preserved ejection fraction supplemental oxygen and her BiPAP at night, keep oxygen saturation greater than 90% Solu-Medrol, bronchodilators, doxycycline Cardiology consultation>continue IV lasix Monitor on telemetry Echocardiogram pending Primary respiratory acidosis, with secondary metabolic alkalosis Mostly compensated BiPAP as needed Hypernatremia Mild Follow closely Chronic osteomyelitis with partial hardware removal Underwent right thigh subcutaneous drug delivery device removal, right thigh excisional debridement and wound VAC placement (wound vac clean) Continue IV vancomycin, end date May 02 (total 6 weeks) wound nurse to follow for wound vac care if needed Elevated blood pressure readings Amlodipine 2.5 mg daily added Monitor blood pressures closely Chronic pain Continue oxycodone 15 mg every 6 hours as needed Normocytic anemia Stable H&H Obstructive sleep apnea On BiPAP at night Obesity class 3 Discussed importance of weight management as this may be contributing to worsening of other comorbidities DVT prophylaxis with heparin Attending Dr. Booth Full code Quality Stroke Does the patient have a stroke diagnosis?: No VTE Prior VTE?: No VTE Risk Level:: Medical - moderate - high VTE Device Contraindication: Treatment Not Indicated VTE Drug Contraindication: N/A - Med Ordered
--- NOTE | 2024-04-25 09:28 | MHC.CM.PN ---
CM met with Patient at bedside, in the ED and addressed IMM with her, providing Patient with the original and a copy has been placed on the chart. Patient lives in a house with her /HCP/Hoa and adult Daughter and she uses a walker to assist with mobility.Patient is [facility] with [facility] and [facility] for IV V[facility]. [facility], along with 13 hours/week of [employer] services.Home/resume said services is the goal and CM has initiated and will follow for dc planning.Patient's will transport to home and PCP is Dr. Sedrick Ramon/DC in [place].
[2024-04-25 09:53] LABS: SARS-CoV-2 PCR Not Detected (Not Detect.)
[2024-04-25] MEDS: Albuterol Sulfate (0.083%) 2.5 MG/3 ML VIAL.NEB INHALE ×2 (10:49→15:17)
--- NOTE | 2024-04-25 13:09 | P.CONCA_ITS ---
History of Present Illness History of Present Illness Date of Service: 04/25/24 Chief complaint: COPD, chf Narrative: Pleasant 64 year female with known history of diastolic heart failure and COPD presenting with shortness of breath and peripheral edema. She has chronic osteomyelitis and is currently on vancomycin. Blood pressure is elevated. She is complaining of lower extremity edema which has worsened before. On IV diuretics currently. Denying any chest discomfort. No other concerns. [facility] Past Medical History Medical History (Updated 04/24/24 @ 18:00 by Branden Monge MD) Enterococcus faecalis infection MSSA (methicillin susceptible Staphylococcus aureus) MRSA (methicillin resistant staph aureus) culture positive Encounter for management of wound VAC Chronic osteomyelitis Hypertension Iron deficiency anemia Open wound of lower extremity COPD (chronic obstructive pulmonary disease) Femur fracture Crohn's colitis Morbid obesity due to excess calories Closed tibia fracture Acute on chronic respiratory failure with hypoxia and hypercapnia Wound of left lower extremity Nonrheumatic mitral (valve) stenosis Acute on chronic right heart failure Paroxysmal atrial fibrillation Dyspnea ALEKSEY treated with BiPAP Hypoventilation associated with obesity Pickwickian syndrome Chronic hypercapnic respiratory failure Opioid use disorder Family History Family History Other Adopted Surgical History Surgical History (Updated 04/24/24 @ 17:41 by Meagan Farrar NP) Hx of cholecystectomy History of open reduction and internal fixation (ORIF) procedure Status post open reduction and internal fixation (ORIF) of fracture Recent surgical procedure on lower extremity Social History Social History Household Members: Significant Other Household Members Other:: , Hoa. Daughter Carolyn, 21. Daughter's Boyfriend, 22. 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) Alcohol intake: former Year quit: 1989 Patient Tobacco Use Status: Former Tobacco user Years Smoked: 25 Second Hand Smoke Exposure: No Advance Directives Date on File: 12/16/20 service: Yes Current occupational status: disabled Meds Allergies Allergy/AdvReac Type Severity Reaction Status Date / Time gabapentin Allergy Mild Anxiety Verified 04/24/24 13:52 morphine [MORPHINE] Allergy Unknown ANAPHALAXIS, Verified 04/24/24 13:52 anaphylaxis propofol [From Diprivan] Allergy Anaphylaxis Verified 04/24/24 13:52 Active Medications: Current Medications Acetaminophen (Acetaminophen 325 Mg Tablet) 650 mg PO Q6H PRN PRN Reason: Pain, Mild (Pain Scale 1-3), fever or headache Albuterol Sulfate (Albuterol Sulfate (0.083%) 2.5 Mg/3 Ml Vial.Neb) 2.5 mg INHALE RQ4H WHILE AWAKE [facility] Last Admin: 04/25/24 10:49 Dose: 2.5 mg Calcium Carbonate (Calcium Carbonate 750 Mg Tab.Chew) 750 mg PO Q4H PRN PRN Reason: Heartburn Clonazepam (Clonazepam 0.5 Mg Tablet) 0.5 mg PO DAILY PRN PRN Reason: Anxiety Clonazepam (Clonazepam 1 Mg Tablet) 1 mg PO DAILY [facility] Last Admin: 04/25/24 08:57 Dose: 1 mg Furosemide (Furosemide 20 Mg/2 Ml Vial) 20 mg IVPUSH BID@0900,1800 [facility]; Protocol Last Admin: 04/25/24 08:56 Dose: 20 mg Heparin Sodium (Porcine) (Heparin Sodium,Porcine 5,000 Unit/Ml Vial) 5,000 unit SUBCUT Q12H [facility] Last Admin: 04/25/24 05:37 Dose: 5,000 unit Vancomycin HCl 1,500 mg/ (Sodium Chloride) 500 mls @ 333.333 mls/hr IV Q24H [facility] Doxycycline Hyclate 100 mg/ (Sodium Chloride) 250 mls @ 166.67 mls/hr IV Q12H [facility] Last Infusion: 04/25/24 11:02 Dose: Infused Magnesium Hydroxide (Milk Of Magnesia 30 Ml Oral.Susp) 30 ml PO DAILY PRN PRN Reason: Constipation Melatonin (Melatonin 3 Mg Tablet) 6 mg PO BEDTIME PRN PRN Reason: Insomnia Methylprednisolone Sodium Succinate (Methylprednisolone Sod Succ 40 Mg/Ml Vial) 40 mg IVPUSH Q12H [facility] Last Admin: 04/25/24 08:56 Dose: 40 mg Ondansetron HCl (Ondansetron Hcl 4 Mg/2 Ml Vial) 4 mg IVPUSH Q8H PRN PRN Reason: Nausea and Vomiting Oxycodone HCl (Oxycodone Hcl Immed Release 15 Mg Tablet) 15 mg PO Q6H PRN PRN Reason: Pain, Moderate(Pain Scale 4-6) Pharmacy Consult (Consult Rx Vancomycin Dosing) 1 each MISCELLANE DAILY PRN PRN Reason: Consult order Sodium Chloride (0.9 % Sodium Chloride Flush 3 Ml Syringe) 3 ml IVFLUSH QSHIFT [facility] Last Admin: 04/25/24 08:56 Dose: 3 ml Home Medications ?Medication ?Instructions ?Recorded ?Confirmed ?Last Taken ?Type theophylline 400 mg 400 mg PO DAILY 01/18/23 04/24/24 04/24/24 History capsule,extended release 24 hr (Roque-24) vancomycin 1.5 gram/300 mL in 0.9 1.5 g IV Q24H 04/03/24 04/24/24 04/23/24 History % sodium chloride intravenous clonazepam 0.5 mg tablet 0.5 mg PO DAILY PRN Anxiety 04/24/24 04/24/24 Unknown History clonazepam 1 mg tablet 1 mg PO DAILY 04/24/24 04/24/24 Unknown History fluticasone fur. 100 mcg-umeclid 1 ea inhalation DAILY 04/24/24 04/24/24 04/24/24 History 62.5 mcg-vilant 25 mcg inhalat.powder (Trelegy Ellipta) furosemide 20 mg tablet 40 mg PO DAILY 04/24/24 04/24/24 04/24/24 History oxycodone 5 mg tablet 5 mg PO Q6H PRN Pain 04/24/24 04/24/24 Unknown History Physical Exam 2 Vital Signs: Vital Signs: Last Vital Signs Temp 98.5 F 04/25/24 13:06 Pulse 77 04/25/24 13:06 Resp 18 04/25/24 13:06 BP 188/76 H 04/25/24 13:06 Pulse Ox 96 04/25/24 13:06 O2 Del Method Nasal Cannula 04/25/24 13:06 O2 Flow Rate 4 04/25/24 13:06 Oxygen Flow Rate 6 04/24/24 13:48 BMI result Body Mass Index 43.6 GENERAL APPEARANCE: in no acute distress, morbidly obese. NECK: no carotid bruit, + jugular venous distention. SKIN: no suspicious lesions, warm and dry. HEART: no murmurs, regular rate and rhythm. LUNGS: Bibasilar crackles. ABDOMEN: soft, nontender. EXTREMITIES: 1 to 2+ edema. PERIPHERAL PULSES: equal. NEUROLOGIC: No gross deficits, AAO X 3 Objective Labs and Meds 04/25/24 04:57 04/25/24 04:57 Lab results: Laboratory Results - last 24 hr 04/24/24 04/24/24 04/24/24 15:01 15:06 16:39 WBC 7.8 RBC 3.25 L Hgb 8.3 L Hct 29.1 L MCV 89.5 MCH 25.5 L MCHC 28.5 L RDW 15.3 Plt Count 198 MPV 9.7 Immature Gran % (Auto) 0.3 Neut % (Auto) 78.2 H Lymph % (Auto) 12.1 L [place] % (Auto) 5.6 Eos % (Auto) 3.3 Baso % (Auto) 0.5 Lymph # (Auto) 1.0 L [place] # (Auto) 0.4 Eos # (Auto) 0.3 Baso # (Auto) 0.0 Abs Immat Gran (auto) 0.02 Absolute Neuts (auto) 6.1 Absolute Nucleated RBC 0.000 Nucleated RBC % (auto) 0.0 Smear Tech's Comments PT 11.8 INR 1.0 D-Dimer High Sensitivty 242 O2 Saturation 95.0 ABG pH at Pt Temp 7.37 ABG pCO2 at Pt Temp 83 H* ABG pO2 at Pt Temp 77 L ABG HCO3 49 H ABG Base Excess (Actual) 21.0 VBG pH 7.30 L VBG pCO2 99 VBG pO2 50 VBG HCO3 49 H VBG O2 Saturation 73.0 VBG Base Excess 19.7 Sodium 148 H Potassium 4.6 Chloride 97 Carbon Dioxide 42 H* Anion Gap 14 BUN 17 H Creatinine 1.13 Estim Creat Clear Calc 68.0 Estimated GFR 49 Random Glucose 130 H Calcium 9.2 Magnesium 2.0 Total Bilirubin 0.3 AST 8 ALT < 5 Alkaline Phosphatase 98 Troponin I High Sens < 2.7 D B-Natriuretic Peptide 86 Total Protein 6.9 Albumin 3.7 Respiratory Panel Vidales Adenovirus (Rapid PCR) B.pert (TEM-PCR) B.parapertussis DNA PCR C. pneumoniae DNA (PCR) Coronavirus OC43 (PCR) Coronavirus HKU1 (PCR) Coronavirus 229E (PCR) Coronavirus NL63 (PCR) Human Metapneumovir PCR Influenza A (RT-PCR) Influenza B (RT-PCR) M. pneumoniae (PCR) Parainfluenza 1 (PCR) Parainfluenza 2 (PCR) Parainfluenza 3 (PCR) Parainfluenza 4 (PCR) RSV (PCR) Entero/Rhino (PCR) SARS-CoV-2 RNA (RT-PCR) 04/24/24 04/25/24 19:47 04:57 WBC 8.7 RBC 3.04 L Hgb 7.7 L Hct 27.1 L MCV 89.1 MCH 25.3 L MCHC 28.4 L RDW 14.9 Plt Count 192 MPV 10.1 Immature Gran % (Auto) 0.3 Neut % (Auto) 95.3 H Lymph % (Auto) 3.6 L [place] % (Auto) 0.6 L Eos % (Auto) 0.0 Baso % (Auto) 0.2 Lymph # (Auto) 0.3 L [place] # (Auto) 0.1 Eos # (Auto) 0.0 Baso # (Auto) 0.0 Abs Immat Gran (auto) 0.03 Absolute Neuts (auto) 8.3 Absolute Nucleated RBC 0.000 Nucleated RBC % (auto) 0.0 Smear Tech's Comments VERIFIED PT INR D-Dimer High Sensitivty O2 Saturation ABG pH at Pt Temp ABG pCO2 at Pt Temp ABG pO2 at Pt Temp ABG HCO3 ABG Base Excess (Actual) VBG pH VBG pCO2 VBG pO2 VBG HCO3 VBG O2 Saturation VBG Base Excess Sodium 147 H Potassium 4.6 Chloride 96 Carbon Dioxide 40 H* Anion Gap 16 BUN 21 H Creatinine 1.24 Estim Creat Clear Calc 62.0 Estimated GFR 44 Random Glucose 208 H Calcium 8.8 Magnesium Total Bilirubin 0.3 AST 7 ALT 5 Alkaline Phosphatase 91 Troponin I High Sens B-Natriuretic Peptide Total Protein 6.4 L Albumin 3.3 L Respiratory Panel Vidales See Note Adenovirus (Rapid PCR) Not Detected B.pert (TEM-PCR) Not Detected B.parapertussis DNA PCR Not Detected C. pneumoniae DNA (PCR) Not Detected Coronavirus OC43 (PCR) Not Detected Coronavirus HKU1 (PCR) Not Detected Coronavirus 229E (PCR) Not Detected Coronavirus NL63 (PCR) Not Detected Human Metapneumovir PCR Not Detected Influenza A (RT-PCR) Not Detected Influenza B (RT-PCR) Not Detected M. pneumoniae (PCR) Not Detected Parainfluenza 1 (PCR) Not Detected Parainfluenza 2 (PCR) Not Detected Parainfluenza 3 (PCR) Not Detected Parainfluenza 4 (PCR) Not Detected RSV (PCR) Not Detected Entero/Rhino (PCR) Not Detected SARS-CoV-2 RNA (RT-PCR) Not Detected Imaging Radiologist's impression: Impressions Chest X-Ray 04/24/24 14:02 IMPRESSION: Cardiomegaly with mild pulmonary vascular congestion, slightly better when compared to prior. Electronically signed by: Fercho Dacosta MD 04/24/2024 03:36 PM EDT Assessment and Plan (1) Diastolic heart failure: Status: Acute Plan Pleasant 64 year female with known history of diastolic heart failure and hypertension presenting with worsening shortness of breath and clinical volume overload. 40 mg IV b.i.d. Lasix. Spironolactone 25 mg daily. Monitor blood pressure closely and titrate antihypertensive medications. Blood pressure could be the underlying reason for her diastolic heart failure decompensation. We will follow along with you. We will review echocardiography and give further recommendations. Thank you for allowing me to participate in the care of your patient. Please feel free to contact me if you have any questions. Procedures Date of Service Date of Service: 04/25/24
[2024-04-25] MEDS: Spironolactone 25 MG TABLET PO (15:05)
[2024-04-25] MEDS: oxyCODONE HCl Immed Release 15 MG TABLET PO (15:35)
[2024-04-25] MEDS: Furosemide 20 MG/2 ML VIAL 40 MG IVPUSH (17:59)
[2024-04-25 18:50] LABS: Vancomycin Random 19.2 mcg/mL (15-20)
[2024-04-25] MEDS: vancomycin HCL 1,250 MG in 0.9 % Sodium Chloride 250 ML 166.67 MG IV (21:21)
[2024-04-26] VITALS (11 sets, daily range): BP systolic 130–175; BP diastolic 62–80; PULSE 62–92; RESP 15–20; TEMP 36.1–37; O2SAT 92–99
[2024-04-26] MEDS: 0.9 % Sodium Chloride Flush 3 ML SYRINGE IVFLUSH ×4 (00:19→22:48)
[2024-04-26] MEDS: oxyCODONE HCl Immed Release 15 MG TABLET PO ×4 (00:26→22:53)
[2024-04-26] MEDS: Heparin Sodium,Porcine 5,000 UNIT/ML VIAL 5000 UNIT SUBCUT ×2 (05:50→17:37)
[2024-04-26 07:34] LABS: Estimated Glomerular Filt Rate 40
[2024-04-26] MEDS: Albuterol Sulfate (0.083%) 2.5 MG/3 ML VIAL.NEB INHALE ×3 (07:38→15:19)
[2024-04-26] MEDS: Spironolactone 25 MG TABLET PO (08:27)
[2024-04-26] MEDS: methylPREDNISolone Sod Succ 40 MG/ML VIAL IVPUSH (08:27)
[2024-04-26] MEDS: Furosemide 20 MG/2 ML VIAL 40 MG IVPUSH ×2 (08:27→17:37)
[2024-04-26] MEDS: clonazePAM 1 MG TABLET PO (08:27)
[2024-04-26] MEDS: Isosorbide Mononitrate 30 MG TAB.ER.24H PO (08:53)
--- NOTE | 2024-04-26 10:43 | HO.WOUND ---
Wound Consult: Initial 64yr old? admitted to [facility] on 04/24/24 - See progress notes and H&P for detailed history.? Wound consult placed for Right lateral thigh wound vac.? Patient agreeable to assessment and photo documentation.? Patient reports she changed her wound vac yesterday or Wednesday she is unsure and will confirm with her . She reports she and her change the wound vac depending either every other day or every 4 days. . Wound vac is ordered by outside Physician Dr. Katina Mills from [facility]. Per Meagan Farrar NP ok to keep current wound vac in place without take down as long as no overt concerns noted. Dressing assessed - remains intact no leaking noted. No odor no drainage observed in wound vac container. No periwound concerns noted. The wound vac does not report alarms or loss of suction when reviewed. Set to 125mmHg continuous setting. Patient is currently using Medela wound vac - at [facility] we carry 3M wound vac and they are not compatible. Patient will bring in supplies for wound vac change for Wednesday i she remains inpatient. Patient reports she usually changes every [address] Mills. Will follow up with patient on Wednesday should she remain inpatient. Should vac loose suction and not able to be sealed with drape or tegaderm - please notify provider clinical application specialist and change with wet to dry dressing. Wound Vac should not remain in place for greater than 2 hours without suction. Should richelle red blood drainage appears this would be a new finding and a immediate call to a provider should be made and suction stopped.
--- NOTE | 2024-04-26 10:57 | PM.PNCARD ---
Subjective Subjective Date of Service: 04/26/24 Interval history: Seen and examined at bedside. Feeling little better but still short of breath. Blood pressure is elevated. ECHO has shown severe pulmonary hypertension with normal biventricular function Physical Exam Vital Signs: Last Vital Signs Temp 98.6 F 04/26/24 08:00 Pulse 88 04/26/24 08:00 Resp 18 04/26/24 08:00 BP 159/80 H 04/26/24 08:00 Pulse Ox 96 04/26/24 08:00 O2 Del Method Nasal Cannula 04/26/24 08:00 O2 Flow Rate 4 04/26/24 08:00 Oxygen Flow Rate 6 04/24/24 13:48 BMI result Body Mass Index 46.5 GENERAL APPEARANCE: in no acute distress, morbidly obese. NECK: no carotid bruit, + jugular venous distention. SKIN: no suspicious lesions, warm and dry. HEART: no murmurs, regular rate and rhythm. LUNGS: Few crackles bilaterally. No wheezing or rhonchi. ABDOMEN: soft, nontender. EXTREMITIES: 1 to 2+ edema. PERIPHERAL PULSES: equal. NEUROLOGIC: No gross deficits, AAO X 3 Objective Labs and Meds 04/25/24 04:57 04/26/24 06:41 Lab results: Laboratory Results - last 24 hr 04/25/24 04/26/24 18:19 06:41 Hold Purple Top SEE NOTE Creatinine 1.33 Estim Creat Clear Calc 60.0 Estimated GFR 40 Random Vancomycin 19.2 Progress Note: A&P Assessment and plan (1) Diastolic heart failure: Status: Acute Plan [age] year female with diastolic heart failure and COPD who is presenting with edema and worsening shortness of breath. Clinically appears to be in heart failure and has been on IV diuretics at this point. Continue IV Lasix 40 mg b.i.d.. Continue spironolactone 25 mg daily. Monitor potassium closely and we can titrate spironolactone to 25 mg twice a day if there is no concern for hyperkalemia. Adding Jardiance 10 mg daily. She is on isosorbide mononitrate 30 mg. We will monitor on current medications for now and if blood pressure is still elevated then consider adding losartan 25 mg daily. She is quite anemic and anemia could be playing a role in her dyspnea and heart failure 2. Once she improves she may benefit from blood transfusion. Thank you for allowing me to participate in the care of your patient. Please feel free to contact me if you have any questions. Time Spent With Patient Time: Total time managing care of this patient today ____ minutes. Progress Note: Quality Stroke Does the patient have a stroke diagnosis?: No Procedures Date of Service Date of Service: 04/26/24
[2024-04-26] MEDS: Empagliflozin 10 MG TABLET PO (12:04)
--- NOTE | 2024-04-26 14:52 | MHC.CM.PN ---
EMR reviewed and per MD rounds, pt is not medically cleared for discharge due to management of COPD/CHF.
--- NOTE | 2024-04-26 15:32 | HO.PM.IMPN ---
Subjective Subjective Date of Service: 04/26/24 Interval History: Being followed for CHF Feeling better this morning, persistent shortness of breath, denies fever, no chills, no headache no dizziness no other acute events overnight. Review of Systems All other system reviewed and are negative. Physical Exam Vital Signs: Vital Signs: Last Vital Signs Temp 97.0 F 04/26/24 11:30 Pulse 89 04/26/24 15:20 Resp 15 04/26/24 15:20 BP 150/70 H 04/26/24 12:00 Pulse Ox 96 04/26/24 11:30 O2 Del Method Nasal Cannula 04/26/24 11:30 O2 Flow Rate 4 04/26/24 11:30 Oxygen Flow Rate 6 04/24/24 13:48 BMI result Body Mass Index 46.5 Const: Other: General awake alert resting comfortably, in no acute distress. Neck supple/no jvd. CVS regular rate rhythm, Respiratory lungs bibasilar crackles,no respiratory distress Gastrointestinal abdomen soft, non tender, bowel sounds audible Extremities pitting edema. Neuro non focal Skin no rash Psych appropriate affect Objective Data Active Medications Acetaminophen (Acetaminophen 325 Mg Tablet) 650 mg PO Q6H PRN PRN Reason: Pain, Mild (Pain Scale 1-3), fever or headache Albuterol Sulfate (Albuterol Sulfate (0.083%) 2.5 Mg/3 Ml Vial.Neb) 2.5 mg INHALE RQ4H WHILE AWAKE [facility] Last Admin: 04/26/24 15:19 Dose: 2.5 mg Documented By: JEAN-PAUL Amlodipine Besylate (Amlodipine Besylate 2.5 Mg Tablet) 2.5 mg PO DAILY [facility]; Protocol Last Admin: 04/26/24 13:33 Dose: Not Given Documented By: SHIRIN Non-Admin Reason: Physician Held Med Calcium Carbonate (Calcium Carbonate 750 Mg Tab.Chew) 750 mg PO Q4H PRN PRN Reason: Heartburn Clonazepam (Clonazepam 0.5 Mg Tablet) 0.5 mg PO DAILY PRN PRN Reason: Anxiety Clonazepam (Clonazepam 1 Mg Tablet) 1 mg PO DAILY [facility] Last Admin: 04/26/24 08:27 Dose: 1 mg Documented By: ALBA Empagliflozin (Empagliflozin 10 Mg Tablet) 10 mg PO DAILY [facility] Last Admin: 04/26/24 12:04 Dose: 10 mg Documented By: SHIRIN Furosemide (Furosemide 20 Mg/2 Ml Vial) 40 mg IVPUSH BID@0900,1800 [facility]; Protocol Last Admin: 04/26/24 08:27 Dose: 40 mg Documented By: ALBA Heparin Sodium (Porcine) (Heparin Sodium,Porcine 5,000 Unit/Ml Vial) 5,000 unit SUBCUT Q12H [facility] Last Admin: 04/26/24 05:50 Dose: 5,000 unit Documented By: DIGNA Vancomycin HCl 1,250 mg/ (Sodium Chloride) 250 mls @ 166.667 mls/hr IV Q24H [facility] Last Infusion: 04/25/24 23:00 Dose: Infused Documented By: SHIRIN Isosorbide Mononitrate (Isosorbide Mononitrate 30 Mg Tab.Er.24h) 30 mg PO DAILY [facility]; Protocol Last Admin: 04/26/24 08:53 Dose: 30 mg Documented By: ALBA Magnesium Hydroxide (Milk Of Magnesia 30 Ml Oral.Susp) 30 ml PO DAILY PRN PRN Reason: Constipation Melatonin (Melatonin 3 Mg Tablet) 6 mg PO BEDTIME PRN PRN Reason: Insomnia Methylprednisolone Sodium Succinate (Methylprednisolone Sod Succ 40 Mg/Ml Vial) 40 mg IVPUSH Q12H [facility] Last Admin: 04/26/24 08:27 Dose: 40 mg Documented By: ALBA Ondansetron HCl (Ondansetron Hcl 4 Mg/2 Ml Vial) 4 mg IVPUSH Q8H PRN PRN Reason: Nausea and Vomiting Oxycodone HCl (Oxycodone Hcl Immed Release 15 Mg Tablet) 15 mg PO Q6H PRN PRN Reason: Pain, Moderate(Pain Scale 4-6) Last Admin: 04/26/24 15:22 Dose: 15 mg Documented By: SHIRIN Pharmacy Consult (Consult Rx Vancomycin Dosing) 1 each MISCELLANE DAILY PRN PRN Reason: Consult order Sodium Chloride (0.9 % Sodium Chloride Flush 3 Ml Syringe) 3 ml IVFLUSH QSHIFT [facility] Last Admin: 04/26/24 08:32 Dose: 3 ml Documented By: ALBA Spironolactone (Spironolactone 25 Mg Tablet) 25 mg PO DAILY [facility]; Protocol Last Admin: 04/26/24 08:27 Dose: 25 mg Documented By: ALBA Labs 04/25/24 04:57 04/26/24 06:41 Labs: Laboratory Results - last 24 hr 04/25/24 04/26/24 18:19 06:41 Hold Purple Top SEE NOTE Estim Creat Clear Calc 60.0 Estimated GFR 40 Random Vancomycin 19.2 Assessment and Plan (1) Diastolic heart failure: Status: Acute (2) Acute exacerbation of chronic obstructive pulmonary disease: Status: Acute Plan 64-year-old woman admitted with acute on chronic hypoxic respiratory failure secondary to acute COPD exacerbation and heart failure Acute on chronic hypoxic respiratory failure, Secondary to acute on chronic congestive heart failure with preserved ejection fraction Appears volume overloaded, BNP 86 Continue IV Lasix 40 mg b.i.d. Aldactone 25 mg daily, isosorbide 30 mg and Jardiance 10 mg added by Cardiology Continue supplemental oxygen and her BiPAP at night, keep oxygen saturation greater than 90% Monitor on telemetry Echocardiogram showed severe pulmonary hypertension EF 60-65% COPD acute exacerbation resolved Wean steroids, no acute infection DC IV antibiotics Resume Trelegy BiPAP as needed Chronic normocytic anemia Likely contributing to shortness of breath Normal recent iron studies likely anemia of chronic disease/consider blood transfusion if noted to have further drop in H&H Acute Hypernatremia Mild /Follow closely Chronic osteomyelitis with partial hardware removal Underwent right thigh subcutaneous drug delivery device removal, right thigh excisional debridement and wound VAC placement (wound vac clean) Continue IV vancomycin, end date May 02 (total 6 weeks) wound nurse to follow for wound vac care if needed Elevated blood pressure readings BP remains elevated, continue Amlodipine 2.5 mg, seen by Dr. Calle patient started on isosorbide 30 mg daily Monitor blood pressures closely, add losartan 25 mg if BP remains elevated versus increase dose of amlodipine to 5 Chronic pain Continue oxycodone 15 mg every 6 hours as needed Normocytic anemia Stable H&H Obstructive sleep apnea On BiPAP at night Obesity class 3 Discussed importance of weight management as this may be contributing to worsening of other comorbidities DVT prophylaxis with heparin Full code Patient requires continued inpatient hospitalization for management of acute congestive heart failure and IV diuretics and requiring close BMP monitoring Quality Stroke Does the patient have a stroke diagnosis?: No VTE Prior VTE?: No VTE Risk Level:: Medical - moderate - high VTE Device Contraindication: Treatment Not Indicated VTE Drug Contraindication: N/A - Med Ordered
[2024-04-26] MEDS: clonazePAM 0.5 MG TABLET PO (16:49)
[2024-04-26 18:54] LABS: Vancomycin Random 19.8 mcg/mL (15-20)
--- NOTE | 2024-04-26 19:02 | HE.PHANOTE ---
Addendum entered by Sommer Rudolph RPh 04/26/24 19:20: next trough 04/27 @2100. Original Note: VANCO Changing dose to 750 Q24h to give patient time to clear and drop trough as it has been treading in the 19-20 range. next trough 04/27@1800 - predicted trough 14.6. predicted AUC 512.
[2024-04-26] MEDS: vancomycin HCL 750 MG in 0.9 % Sodium Chloride 250 ML 265 MG IV (22:48)
[2024-04-27] VITALS (9 sets, daily range): BP systolic 110–134; BP diastolic 53–80; PULSE 61–86; RESP 17–20; TEMP 36.2–36.9; O2SAT 95–99
[2024-04-27] MEDS: Heparin Sodium,Porcine 5,000 UNIT/ML VIAL 5000 UNIT SUBCUT ×2 (06:10→18:37)
[2024-04-27 07:06] LABS: Hematocrit 32.9 % (37.0-47.0); Hemoglobin 9.3 g/dl (12.0-16.0); Mean Corpuscular HGB Conc 28.3 g/dl (31.0-35.0); Mean Corpuscular Hemoglobin 25.3 pg (27.0-33.0); Mean Corpuscular Volume 89.6 fL (80.0-98.0); Mean Platelet Volume 10.2 fL (9.4-12.3); Platelet Count 283 X10*3/uL (160-400); Red Blood Count 3.67 X10*6/uL (4.20-5.50); Red Cell Distribution Width 15.3 % (11.0-16.0); White Blood Count 15.1 X10*3/uL (4.8-10.8)
[2024-04-27 07:28] LABS: Anion Gap 14 (12-20); Blood Urea Nitrogen 45 mg/dL (9-16); Calcium 9.3 mg/dL (8.4-10.2); Chloride 93 mmol/L (96-108); Creatinine Clr Calc Pharmacy 50.2; Estimated Glomerular Filt Rate 33; Glucose Random 162 mg/dL (60-115); Potassium 4.5 mmol/L (3.3-5.1); Sodium 146 mmol/L (135-145)
[2024-04-27 07:32] LABS: Carbon Dioxide 44 mmol/L (22-29)
[2024-04-27] MEDS: Albuterol Sulfate (0.083%) 2.5 MG/3 ML VIAL.NEB INHALE ×3 (07:55→15:10)
[2024-04-27] MEDS: clonazePAM 1 MG TABLET PO (08:18)
[2024-04-27] MEDS: Empagliflozin 10 MG TABLET PO (08:18)
[2024-04-27] MEDS: amLODIPine Besylate 2.5 MG TABLET PO (08:18)
[2024-04-27] MEDS: Isosorbide Mononitrate 30 MG TAB.ER.24H PO (08:18)
[2024-04-27] MEDS: Spironolactone 25 MG TABLET PO (08:18)
[2024-04-27] MEDS: oxyCODONE HCl Immed Release 15 MG TABLET PO ×2 (08:20→14:02)
[2024-04-27] MEDS: 0.9 % Sodium Chloride Flush 3 ML SYRINGE IVFLUSH ×2 (08:22→21:15)
[2024-04-27] MEDS: Fluticasone/Umeclidinium/Vilanterol 100/62.5/25 BLST.W.DEV 1 PUFF INHALE (11:14)
--- NOTE | 2024-04-27 15:22 | PC.NURSE ---
Pts wound vac contiued to have various alarms going off, such as cannister full when the cannister was empty. Tubing also became disconnected at one point. Pt states someone tripped over it a few days ago and has been giving me problems ever since . Since wound vac was not working properly, was becki collado air leak pt was transitioned to wet to dry dressing. partner marketing manager to follow up tomorrow.
--- NOTE | 2024-04-27 17:51 | PM.PNCARD ---
Subjective Subjective Date of Service: 04/27/24 Interval history: Seen examined at bedside. Overall respiratory status is better but her creatinine is worse today. Diuretics were held. Physical Exam Vital Signs: Last Vital Signs Temp 97.7 F 04/27/24 15:19 Pulse 62 04/27/24 15:19 Resp 20 04/27/24 15:19 BP 112/53 L 04/27/24 15:19 Pulse Ox 95 04/27/24 15:19 O2 Del Method Nasal Cannula 04/27/24 15:19 O2 Flow Rate 4 04/27/24 15:19 Oxygen Flow Rate 6 04/24/24 13:48 BMI result Body Mass Index 46.5 GENERAL APPEARANCE: in no acute distress, morbidly obese. NECK: no carotid bruit, no jugular venous distention. SKIN: no suspicious lesions, warm and dry. HEART: no murmurs, regular rate and rhythm. LUNGS: CTABL ABDOMEN: soft, nontender. EXTREMITIES: mild edema. PERIPHERAL PULSES: equal. NEUROLOGIC: No gross deficits, AAO X 3 Objective Labs and Meds 04/27/24 06:43 04/27/24 06:43 Lab results: Laboratory Results - last 24 hr 04/26/24 04/27/24 18:13 06:43 WBC 15.1 H RBC 3.67 L D Hgb 9.3 L D Hct 32.9 L D MCV 89.6 MCH 25.3 L MCHC 28.3 L RDW 15.3 Plt Count 283 D MPV 10.2 Absolute Nucleated RBC 0.000 Nucleated RBC % (auto) 0.0 Sodium 146 H Potassium 4.5 Chloride 93 L Carbon Dioxide 44 H* Anion Gap 14 BUN 45 H Creatinine 1.59 H Estim Creat Clear Calc 50.2 Estimated GFR 33 Random Glucose 162 H Calcium 9.3 Random Vancomycin 19.8 Progress Note: A&P Assessment and plan (1) Diastolic heart failure: Status: Acute Plan [age] year female with diastolic heart failure and COPD who is presenting with edema and worsening shortness of breath. She was on IV Lasix 40 mg b.i.d.. Her creatinine has worsened today. We have held the IV diuretics at this stage. Spironolactone and Jardiance can be continued. She is also on isosorbide. Blood pressure control overall is improving. If creatinine improves tomorrow then can be started on 40 mg p.o. b.i.d. Lasix. Monitor creatinine closely because she is also on vancomycin. She is quite anemic and anemia could be playing a role in her dyspnea and heart failure 2. She will benefit from blood transfusion before she is discharged home. Thank you for allowing me to participate in the care of your patient. Please feel free to contact me if you have any questions. Time Spent With Patient Time: Total time managing care of this patient today ____ minutes. Progress Note: Quality Stroke Does the patient have a stroke diagnosis?: No Procedures Date of Service Date of Service: 04/27/24
--- NOTE | 2024-04-27 17:57 | HO.PM.IMPN ---
Subjective Subjective Date of Service: 04/27/24 Interval History: Being followed for acute on chronic hypoxic respiratory failure secondary to acute CHF with preserved EF Feeling better this morning denies shortness of breath, leg edema has resolved, no cough no other acute events overnight Blood work showed elevated creatinine. Review of Systems All other system reviewed and are negative. Physical Exam Vital Signs: Vital Signs: Last Vital Signs Temp 97.7 F 04/27/24 15:19 Pulse 62 04/27/24 15:19 Resp 20 04/27/24 15:19 BP 112/53 L 04/27/24 15:19 Pulse Ox 95 04/27/24 15:19 O2 Del Method Nasal Cannula 04/27/24 15:19 O2 Flow Rate 4 04/27/24 15:19 Oxygen Flow Rate 6 04/24/24 13:48 BMI result Body Mass Index 46.5 Const: Other: General awake alert resting comfortably, in no acute distress. Neck supple/no jvd. CVS regular rate rhythm, Respiratory lungs no crackles,no respiratory distress Gastrointestinal abdomen soft, non tender, bowel sounds audible Extremities no pitting edema./ Neuro non focal Skin no rash Psych appropriate affect Objective Data Active Medications Acetaminophen (Acetaminophen 325 Mg Tablet) 650 mg PO Q6H PRN PRN Reason: Pain, Mild (Pain Scale 1-3), fever or headache Albuterol Sulfate (Albuterol Sulfate (0.083%) 2.5 Mg/3 Ml Vial.Neb) 2.5 mg INHALE RQ4H WHILE AWAKE [facility] Last Admin: 04/27/24 15:10 Dose: 2.5 mg Documented By: DAVONTE Amlodipine Besylate (Amlodipine Besylate 2.5 Mg Tablet) 2.5 mg PO DAILY [facility]; Protocol Last Admin: 04/27/24 08:18 Dose: 2.5 mg Documented By: CANDY Calcium Carbonate (Calcium Carbonate 750 Mg Tab.Chew) 750 mg PO Q4H PRN PRN Reason: Heartburn Clonazepam (Clonazepam 0.5 Mg Tablet) 0.5 mg PO DAILY PRN PRN Reason: Anxiety Last Admin: 04/26/24 16:49 Dose: 0.5 mg Documented By: SHIRIN Clonazepam (Clonazepam 1 Mg Tablet) 1 mg PO DAILY [facility] Last Admin: 04/27/24 08:18 Dose: 1 mg Documented By: CANDY Empagliflozin (Empagliflozin 10 Mg Tablet) 10 mg PO DAILY [facility] Last Admin: 04/27/24 08:18 Dose: 10 mg Documented By: CANDY Fluticasone/Umeclidinium/Vilanterol (Fluticasone/Umeclidinium/Vilanterol 100/62.5/25 Blst.W.Dev) 1 puff INHALE RDAILY [facility] Last Admin: 04/27/24 11:14 Dose: 1 puff Documented By: DAVONTE Heparin Sodium (Porcine) (Heparin Sodium,Porcine 5,000 Unit/Ml Vial) 5,000 unit SUBCUT Q12H [facility] Last Admin: 04/27/24 06:10 Dose: 5,000 unit Documented By: KELLI Vancomycin HCl 500 mg/ Sodium (Chloride) 110 mls @ 110 mls/hr IV Q24H [facility] Isosorbide Mononitrate (Isosorbide Mononitrate 30 Mg Tab.Er.24h) 30 mg PO DAILY [facility]; Protocol Last Admin: 04/27/24 08:18 Dose: 30 mg Documented By: CANDY Magnesium Hydroxide (Milk Of Magnesia 30 Ml Oral.Susp) 30 ml PO DAILY PRN PRN Reason: Constipation Melatonin (Melatonin 3 Mg Tablet) 6 mg PO BEDTIME PRN PRN Reason: Insomnia Ondansetron HCl (Ondansetron Hcl 4 Mg/2 Ml Vial) 4 mg IVPUSH Q8H PRN PRN Reason: Nausea and Vomiting Oxycodone HCl (Oxycodone Hcl Immed Release 15 Mg Tablet) 15 mg PO Q6H PRN PRN Reason: Pain, Moderate(Pain Scale 4-6) Last Admin: 04/27/24 14:02 Dose: 15 mg Documented By: CANDY Pharmacy Consult (Consult Rx Vancomycin Dosing) 1 each MISCELLANE DAILY PRN PRN Reason: Consult order Sodium Chloride (0.9 % Sodium Chloride Flush 3 Ml Syringe) 3 ml IVFLUSH QSHIFT [facility] Last Admin: 04/27/24 17:15 Dose: Not Given Documented By: CANDY Non-Admin Reason: IV Running Labs 04/27/24 06:43 04/27/24 06:43 Labs: Laboratory Results - last 24 hr 04/26/24 04/27/24 18:13 06:43 MCV 89.6 MCH 25.3 L MCHC 28.3 L RDW 15.3 Plt Count 283 D MPV 10.2 Absolute Nucleated RBC 0.000 Nucleated RBC % (auto) 0.0 Anion Gap 14 Estim Creat Clear Calc 50.2 Estimated GFR 33 Random Glucose 162 H Calcium 9.3 Random Vancomycin 19.8 Assessment and Plan (1) Diastolic heart failure: Status: Acute (2) Anemia: Status: Acute Plan 64-year-old woman admitted with acute on chronic hypoxic respiratory failure secondary to acute COPD exacerbation and heart failure Acute on chronic hypoxic respiratory failure, Secondary to acute on chronic congestive heart failure with preserved ejection fraction Appears euvolemic , BNP 86 Will DC IV Lasix 40 mg b.i.d. ,Aldactone and Jardiance Continue isosorbide 30 mg Continue supplemental oxygen and her BiPAP at night, keep oxygen saturation greater than 90% on 3 L of home oxygen Monitor on telemetry Echocardiogram showed severe pulmonary hypertension EF 60-65% VERN with contraction alkalosis, likely due to over-diuresis will hold diuretics give 500 mL IV fluids follow bmp. give diamox 250mg bid x 6 doses COPD acute exacerbation resolved Wean steroids, no acute infection DC IV antibiotics Resume Trelegy BiPAP as needed Chronic normocytic anemia Likely contributing to shortness of breath Normal recent iron studies likely, anemia of chronic disease/consider blood transfusion if noted to have further drop in H&H Acute Hypernatremia Mild /Follow closely Chronic osteomyelitis with partial hardware removal Underwent right thigh subcutaneous drug delivery device removal, right thigh excisional debridement and wound VAC placement (wound vac clean) Continue IV vancomycin, end date May 02 (total 6 weeks) wound nurse to follow for wound vac care if needed Follow vanco level adjust dosage due to VERN Leukocytosis likely due to steroids, follow CBC Elevated blood pressure readings Resolved BP stable continue amlodipine 2.5 mg and isosorbide 30 mg daily Chronic pain Continue oxycodone 15 mg every 6 hours as needed Obstructive sleep apnea Continue BiPAP at night Obesity class 3 Discussed importance of weight management as this may be contributing to worsening of other comorbidities DVT prophylaxis with heparin Full code Patient requires continued inpatient hospitalization for management of acute congestive heart failure and IV diuretics and requiring close BMP monitoring Quality Stroke Does the patient have a stroke diagnosis?: No VTE Prior VTE?: No VTE Risk Level:: Medical - moderate - high VTE Device Contraindication: Treatment Not Indicated VTE Drug Contraindication: N/A - Med Ordered
[2024-04-27] MEDS: acetaZOLAMIDE 250 MG TABLET PO (21:15)
[2024-04-27 21:27] LABS: Vancomycin Random 16.7 mcg/mL (15-20)
--- NOTE | 2024-04-27 21:41 | HE.PHANOTE ---
HARMAN Pushed back dose on 04/26 to 2300 afor 750 dose. Trough came back at 16.7, put in another one time 750mg dose to hold patient in therapeutic trough. Predicted trough 16.2, AUC 554. Will put in trough to be pulled @1100 on 04/28 to see how patient clears with elevated SCr today at 1.59. Recheck tomorrow at 1100 to see if nightime dose is to be held and adjust dosing per renal function and trough on 04/28.
[2024-04-27] MEDS: vancomycin HCL 750 MG in 0.9 % Sodium Chloride 250 ML 265 MG IV (22:58)
[2024-04-28] VITALS (12 sets, daily range): BP systolic 102–148; BP diastolic 52–76; PULSE 54–80; RESP 12–20; TEMP 36.1–36.4; O2SAT 90–100
[2024-04-28] MEDS: oxyCODONE HCl Immed Release 15 MG TABLET PO ×3 (03:05→23:32)
[2024-04-28] MEDS: Heparin Sodium,Porcine 5,000 UNIT/ML VIAL 5000 UNIT SUBCUT ×2 (05:35→17:20)
[2024-04-28 07:03] LABS: Hemoglobin 8.1 g/dl (12.0-16.0); Mean Corpuscular Hemoglobin 25.1 pg (27.0-33.0); Mean Corpuscular Volume 92.9 fL (80.0-98.0); Mean Platelet Volume 10.3 fL (9.4-12.3); Platelet Count 234 X10*3/uL (160-400); Red Blood Count 3.23 X10*6/uL (4.20-5.50); Red Cell Distribution Width 15.8 % (11.0-16.0); White Blood Count 10.7 X10*3/uL (4.8-10.8)
[2024-04-28 07:27] LABS: Anion Gap 10 (12-20); Blood Urea Nitrogen 41 mg/dL (9-16); Calcium 8.6 mg/dL (8.4-10.2); Chloride 97 mmol/L (96-108); Creatinine Clr Calc Pharmacy 63.9; Estimated Glomerular Filt Rate 43; Glucose Random 138 mg/dL (60-115); Potassium 4.3 mmol/L (3.3-5.1); Sodium 146 mmol/L (135-145)
[2024-04-28] MEDS: Fluticasone/Umeclidinium/Vilanterol 100/62.5/25 BLST.W.DEV 1 PUFF INHALE (07:44)
[2024-04-28 07:45] LABS: Carbon Dioxide 43 mmol/L (22-29)
[2024-04-28] MEDS: Albuterol Sulfate (0.083%) 2.5 MG/3 ML VIAL.NEB INHALE ×3 (07:50→15:25)
[2024-04-28] MEDS: amLODIPine Besylate 2.5 MG TABLET PO (10:25)
[2024-04-28] MEDS: clonazePAM 1 MG TABLET PO (10:25)
[2024-04-28] MEDS: 0.9 % Sodium Chloride Flush 3 ML SYRINGE IVFLUSH ×3 (10:26→22:23)
--- NOTE | 2024-04-28 10:50 | MHC.CM.PN ---
PER MD ROUNDS, PT WILL LIKELY BE READY TO DC TOMORROW DCP: HOME RESUME [facility] FOR HI/IV [employer] FAMILY TO TRANSPORT
[2024-04-28 11:32] LABS: Vancomycin Random 20.4 mcg/mL (15-20)
[2024-04-28] MEDS: Furosemide 40 MG TABLET PO (11:34)
[2024-04-28] MEDS: Isosorbide Mononitrate 30 MG TAB.ER.24H PO (11:35)
[2024-04-28] MEDS: acetaZOLAMIDE 250 MG TABLET PO ×2 (11:35→22:21)
--- NOTE | 2024-04-28 11:39 | HE.PHANOTE ---
Re Vanc Random drawn on time ~12H post dose, came back at 20.4. With current creatinine, should be good to receive a 500mg dose tonight. Will continue monitoring, next level tomorrow @2100.
[2024-04-28 12:23] LABS: ABG Base Excess 20.3 mmol/L; ABG HCO3 48 mmol/L (22-26); ABG pCO2 81 mmHg (32-45); ABG pH 7.38 (7.35-7.45); ABG pO2 58 mmHg (83-108)
[2024-04-28 13:46] LABS: ABG Refer to POC result
--- NOTE | 2024-04-28 15:03 | P.PNIM_ITS ---
Subjective Subjective Date of Service: 04/28/24 Interval History: Being followed for acute on chronic hypoxic respiratory failure secondary to acute CHF with preserved EF. Sitting comfortably offers no acute complaints denies shortness of breath, no leg edema no cough, no acute events overnight Later in the morning noted to be sleepy but easily arousable, no confusion noted, at bedside informed this is her baseline. Review of Systems All other system reviewed and negative. Physical Exam 2 Vital Signs: Vital Signs: Last Vital Signs Temp 97.2 F 04/28/24 11:35 Pulse 68 04/28/24 11:35 Resp 13 04/28/24 11:35 BP 115/53 L 04/28/24 11:35 Pulse Ox 99 04/28/24 11:35 O2 Del Method Nasal Cannula 04/28/24 11:35 O2 Flow Rate 4 04/28/24 07:34 Oxygen Flow Rate 6 04/24/24 13:48 BMI result Body Mass Index 46.5 Const: Other: General awake alert resting comfortably, in no acute distress. Neck supple/no jvd. CVS regular rate rhythm, Respiratory lungs no crackles,no respiratory distress Gastrointestinal abdomen soft, non tender, bowel sounds audible Extremities no pitting edema./ Neuro non focal Skin no rash Psych appropriate affect Objective Data Active Medications Acetaminophen (Acetaminophen 325 Mg Tablet) 650 mg PO Q6H PRN PRN Reason: Pain, Mild (Pain Scale 1-3), fever or headache Acetazolamide (Acetazolamide 250 Mg Tablet) 250 mg PO BID [facility] Last Admin: 04/28/24 11:35 Dose: 250 mg Documented By: TERE Albuterol Sulfate (Albuterol Sulfate (0.083%) 2.5 Mg/3 Ml Vial.Neb) 2.5 mg INHALE RQ4H WHILE AWAKE [facility] Last Admin: 04/28/24 11:06 Dose: 2.5 mg Documented By: ANUSHA Amlodipine Besylate (Amlodipine Besylate 2.5 Mg Tablet) 2.5 mg PO DAILY [facility]; Protocol Last Admin: 04/28/24 10:25 Dose: 2.5 mg Documented By: TERE Calcium Carbonate (Calcium Carbonate 750 Mg Tab.Chew) 750 mg PO Q4H PRN PRN Reason: Heartburn Clonazepam (Clonazepam 0.5 Mg Tablet) 0.5 mg PO DAILY PRN PRN Reason: Anxiety Last Admin: 04/26/24 16:49 Dose: 0.5 mg Documented By: SHIRIN Clonazepam (Clonazepam 1 Mg Tablet) 1 mg PO DAILY [facility] Last Admin: 04/28/24 10:25 Dose: 1 mg Documented By: TERE Fluticasone/Umeclidinium/Vilanterol (Fluticasone/Umeclidinium/Vilanterol 100/62.5/25 Blst.W.Dev) 1 puff INHALE RDAILY [facility] Last Admin: 04/28/24 07:44 Dose: 1 puff Documented By: ANUSHA Furosemide (Furosemide 40 Mg Tablet) 40 mg PO BID@0900,1800 [facility]; Protocol Last Admin: 04/28/24 11:34 Dose: 40 mg Documented By: TERE Heparin Sodium (Porcine) (Heparin Sodium,Porcine 5,000 Unit/Ml Vial) 5,000 unit SUBCUT Q12H [facility] Last Admin: 04/28/24 05:35 Dose: 5,000 unit Documented By: KELLI Vancomycin HCl 500 mg/ Sodium (Chloride) 110 mls @ 110 mls/hr IV Q24H [facility] Vancomycin HCl 500 mg/ Sodium (Chloride) 110 mls @ 110 mls/hr IV ONCE ONE Stop: 04/28/24 23:59 Isosorbide Mononitrate (Isosorbide Mononitrate 30 Mg Tab.Er.24h) 30 mg PO DAILY [facility]; Protocol Last Admin: 04/28/24 11:35 Dose: 30 mg Documented By: TERE Magnesium Hydroxide (Milk Of Magnesia 30 Ml Oral.Susp) 30 ml PO DAILY PRN PRN Reason: Constipation Melatonin (Melatonin 3 Mg Tablet) 6 mg PO BEDTIME PRN PRN Reason: Insomnia Ondansetron HCl (Ondansetron Hcl 4 Mg/2 Ml Vial) 4 mg IVPUSH Q8H PRN PRN Reason: Nausea and Vomiting Oxycodone HCl (Oxycodone Hcl Immed Release 15 Mg Tablet) 15 mg PO Q6H PRN PRN Reason: Pain, Moderate(Pain Scale 4-6) Last Admin: 04/28/24 03:05 Dose: 15 mg Documented By: KELLI Pharmacy Consult (Consult Rx Vancomycin Dosing) 1 each MISCELLANE DAILY PRN PRN Reason: Consult order Sodium Chloride (0.9 % Sodium Chloride Flush 3 Ml Syringe) 3 ml IVFLUSH QSHIFT [facility] Last Admin: 04/28/24 10:26 Dose: 3 ml Documented By: TERE Labs 04/28/24 06:31 04/28/24 06:31 Labs: Laboratory Results - last 24 hr 04/27/24 04/28/24 04/28/24 20:56 06:31 11:05 MCV 92.9 MCH 25.1 L MCHC 27.0 L RDW 15.8 Plt Count 234 MPV 10.3 Absolute Nucleated RBC 0.000 Nucleated RBC % (auto) 0.0 O2 Saturation ABG pH at Pt Temp ABG pCO2 at Pt Temp ABG pO2 at Pt Temp ABG HCO3 ABG Base Excess (Actual) Anion Gap 10 L Estim Creat Clear Calc 63.9 Estimated GFR 43 Random Glucose 138 H Calcium 8.6 D Random Vancomycin 16.7 20.4 H 04/28/24 12:13 MCV MCH MCHC RDW Plt Count MPV Absolute Nucleated RBC Nucleated RBC % (auto) O2 Saturation 86.0 ABG pH at Pt Temp 7.38 ABG pCO2 at Pt Temp 81 H* ABG pO2 at Pt Temp 58 L ABG HCO3 48 H ABG Base Excess (Actual) 20.3 Anion Gap Estim Creat Clear Calc Estimated GFR Random Glucose Calcium Random Vancomycin Assessment and Plan (1) Diastolic heart failure: Status: Acute (2) Acute exacerbation of chronic obstructive pulmonary disease: Status: Acute Plan 64-year-old woman admitted with acute on chronic hypoxic respiratory failure secondary to acute COPD exacerbation and heart failure Acute on chronic hypoxic respiratory failure, Secondary to acute on chronic congestive heart failure with preserved ejection fraction 60-65%, severe pulmonary hypertension Appears euvolemic , BNP 86 s/p IV Lasix 40 mg b.i.d. ,Aldactone and Jardiance on isosorbide 30 mg Continue supplemental oxygen use 3 L at home and her CPAP at night, keep oxygen saturation around 90% , wean oxygen to 1-2 L Placed on Lasix 40mg b.i.d. by Cardiology, cardio recommends Jardiance 10 mg, Aldactone 25 mg upon discharge Follow electrolytes, renal function and Monitor on telemetry VERN with contraction alkalosis, likely due to over-diuresis Creatinine normalized. Continue diamox 250mg bid x 6 doses COPD acute exacerbation resolved dc steroids, no acute infection, DC IV antibiotics cont Trelegy CPAP as needed during day and at night Chronic normocytic anemia Likely contributing to shortness of breath Normal recent iron studies likely, anemia of chronic disease/consider blood transfusion if noted to have further drop in H&H Acute Hypernatremia Mild /Follow closely Chronic osteomyelitis with partial hardware removal Underwent right thigh subcutaneous drug delivery device removal, right thigh excisional debridement and wound VAC placement (wound vac clean) Continue IV vancomycin, end date May 02 (total 6 weeks) wound nurse following for wound vac care Stable vanco level, vanco doses changed to IV 500 mg daily,end date May 02 Leukocytosis likely due to steroids, follow CBC Elevated blood pressure readings Resolved BP stable on amlodipine 2.5 mg and isosorbide 30 mg daily Chronic pain Continue oxycodone 15 mg every 6 hours as needed Obstructive sleep apnea Continue CPAP at night and during daytime, ABGs obtained well compensated respiratory acidosis Obesity class 3 Discussed importance of weight management as this may be contributing to worsening of other comorbidities DVT prophylaxis with heparin Full code Patient requires continued inpatient hospitalization for management of acute congestive heart failure, requiring close BMP monitoring. Quality Stroke Does the patient have a stroke diagnosis?: No VTE Prior VTE?: No VTE Risk Level:: Medical - moderate - high VTE Device Contraindication: Treatment Not Indicated VTE Drug Contraindication: N/A - Med Ordered
--- NOTE | 2024-04-28 16:01 | HO.WOUND ---
Wound Consult :Follow up 64yr old? admitted to [facility] on 04/24/24 - See progress notes and H&P for detailed history.? Wound consult follow up for Right lateral thigh wound vac.? Patient agreeable to assessment and photo documentation.? Patient reports yesterday wound vac alarmed canister full, despite canister being empty, alarmed leaking although suction was observed and no leak found by direct care team, appears to be wound vac malfunction. The patient and her report they have had trouble with this vac alarming in the past of note the patients wound vac is Medela and at [facility] 3M is available therefore trouble shooting vac would be limited if it were to be applied and then again alarmed. The patient is set for tentative d/c for tomorrow to home and not beneficial to place 3M vac to patient as she would need to be removed prior to d/c as the parts are not compatible with Medela. Discussed with patient and agrees to wound packing with Durafiber AG every 3 days and then pt and will work to get new wound vac and work with VNA for reapplication of wound vac. Discussed with Dr. Martins as well. Overall the site is significantly improved compared to my last assessment during her previous admission. Wound bed is clean red moist tissue with small yellow no odorous drainage noted. Periwound intact. Patient is clearly benefitting from wound vac application - patient educated to work to get new VAC REILLY to restart NPWT - she and her demonstrate understanding. Recommendations: 1. Right Upper Lateral Leg: Cleanse and irrigate with NS, pat dry. Apply skin prep to periwound, lightly pack with Durafiber AG, cover with dry gauze dressing. Change every 3 days. Once home and wound vac available coordinate with your VNA service to re-apply your wound vac per Dr. Mills orders.
[2024-04-28 17:35] LABS: Magnesium 2.5 mg/dL (1.6-2.6)
[2024-04-28] MEDS: vancomycin HCL 500 MG in 0.9 % Sodium Chloride 100 ML 110 MG IV (22:22)
[2024-04-29] VITALS (12 sets, daily range): BP systolic 105–126; BP diastolic 55–66; PULSE 72–78; RESP 18–20; TEMP 36–36.5; O2SAT 90–96
--- NOTE | 2024-04-29 | ECG_ITS ---
Test Reason : chest pain Blood Pressure : / mmHG Vent. Rate : 081 BPM Atrial Rate : 081 BPM P-R Int : 146 ms QRS Dur : 090 ms QT Int : 368 ms P-R-T Axes : 061 035 042 degrees QTc Int : 427 ms Normal sinus rhythm Cannot rule out Anterior infarct , age undetermined Abnormal ECG When compared with ECG of 24-APR-2024 14:43, No significant change was found Referred By: Christian Booth Electronically Signed By:VISHAL GONSALEZ
[2024-04-29] MEDS: Melatonin 3 MG TABLET 6 MG PO ×2 (04:34→23:15)
[2024-04-29] MEDS: Heparin Sodium,Porcine 5,000 UNIT/ML VIAL 5000 UNIT SUBCUT ×2 (04:35→17:02)
[2024-04-29] MEDS: Fluticasone/Umeclidinium/Vilanterol 100/62.5/25 BLST.W.DEV 1 PUFF INHALE (07:37)
[2024-04-29] MEDS: Albuterol Sulfate (0.083%) 2.5 MG/3 ML VIAL.NEB INHALE ×2 (07:38→19:42)
[2024-04-29 07:47] LABS: Anion Gap 11 (12-20); Blood Urea Nitrogen 48 mg/dL (9-16); Calcium 8.2 mg/dL (8.4-10.2); Carbon Dioxide 39 mmol/L (22-29); Chloride 99 mmol/L (96-108); Creatinine Clr Calc Pharmacy 56.6; Estimated Glomerular Filt Rate 38; Glucose Random 149 mg/dL (60-115); Potassium 4.7 mmol/L (3.3-5.1); Sodium 144 mmol/L (135-145)
[2024-04-29] MEDS: acetaZOLAMIDE 250 MG TABLET PO ×2 (09:59→21:46)
[2024-04-29] MEDS: amLODIPine Besylate 2.5 MG TABLET PO (09:59)
[2024-04-29] MEDS: 0.9 % Sodium Chloride Flush 3 ML SYRINGE IVFLUSH ×3 (09:59→21:48)
[2024-04-29] MEDS: Isosorbide Mononitrate 30 MG TAB.ER.24H PO (10:00)
[2024-04-29] MEDS: Furosemide 40 MG TABLET PO (10:00)
[2024-04-29] MEDS: oxyCODONE HCl Immed Release 15 MG TABLET PO ×3 (10:01→23:15)
[2024-04-29] MEDS: clonazePAM 1 MG TABLET PO (10:01)
[2024-04-29 10:28] LABS: ABG Base Excess 16.7 mmol/L; ABG HCO3 43 mmol/L (22-26); ABG pCO2 65 mmHg (32-45); ABG pH 7.43 (7.35-7.45); ABG pO2 100 mmHg (83-108)
--- NOTE | 2024-04-29 11:16 | PM.PNCARD ---
Subjective Subjective Date of Service: 04/29/24 Interval history: Seen examined at bedside. Little sleepy and has asterixis on examination Physical Exam Vital Signs: Last Vital Signs Temp 97.7 F 04/29/24 08:00 Pulse 78 04/29/24 08:00 Resp 20 04/29/24 08:00 BP 106/59 L 04/29/24 10:00 Pulse Ox 96 04/29/24 08:00 O2 Del Method Nasal Cannula 04/29/24 08:00 O2 Flow Rate 4 04/29/24 08:00 Oxygen Flow Rate 6 04/24/24 13:48 BMI result Body Mass Index 46.5 GENERAL APPEARANCE: in no acute distress, morbidly obese. Sleepy today NECK: no carotid bruit, no jugular venous distention. SKIN: no suspicious lesions, warm and dry. HEART: no murmurs, regular rate and rhythm. LUNGS: CTABL ABDOMEN: soft, nontender. EXTREMITIES: No peripheral edema. Asterixis in hands. PERIPHERAL PULSES: equal. NEUROLOGIC: No gross deficits, AAO X 3. Little sleepy today. Objective Labs and Meds 04/28/24 06:31 04/29/24 06:08 Lab results: Laboratory Results - last 24 hr 04/28/24 04/28/24 04/28/24 06:31 11:05 12:13 O2 Saturation 86.0 ABG pH at Pt Temp 7.38 ABG pCO2 at Pt Temp 81 H* ABG pO2 at Pt Temp 58 L ABG HCO3 48 H ABG Base Excess (Actual) 20.3 Sodium Potassium Chloride Carbon Dioxide Anion Gap BUN Creatinine Estim Creat Clear Calc Estimated GFR Random Glucose Calcium Magnesium 2.5 Random Vancomycin 20.4 H 04/29/24 04/29/24 06:08 10:18 O2 Saturation 100.0 ABG pH at Pt Temp 7.43 ABG pCO2 at Pt Temp 65 H* ABG pO2 at Pt Temp 100 ABG HCO3 43 H ABG Base Excess (Actual) 16.7 Sodium 144 Potassium 4.7 Chloride 99 Carbon Dioxide 39 H Anion Gap 11 L BUN 48 H Creatinine 1.41 H Estim Creat Clear Calc 56.6 Estimated GFR 38 Random Glucose 149 H Calcium 8.2 L Magnesium Random Vancomycin Progress Note: A&P Assessment and plan (1) Diastolic heart failure: Status: Acute Plan [age] year female with diastolic heart failure and COPD who is presenting with edema and worsening shortness of breath. She has been diuresed and has clinically improved. Yesterday Diamox was added and her creatinine has worsened today. I think while she is on Diamox Lasix 40 once a day should be used. Once she is off the Diamox then can increase Lasix to 40 mg twice a day. Continue spironolactone and she should be on Jardiance at discharge. She has some asterixis and looks groggy. I have advised an RN to decreased oxygen and aim for saturations of 88-92% given her history of COPD and obesity hypoventilation. Thank you for allowing me to participate in the care of your patient. Please feel free to contact me if you have any questions. Time Spent With Patient Time: Total time managing care of this patient today ____ minutes. Progress Note: Quality Stroke Does the patient have a stroke diagnosis?: No Procedures Date of Service Date of Service: 04/29/24
--- NOTE | 2024-04-29 11:34 | P.PNIM_ITS ---
Subjective Subjective Date of Service: 04/29/24 Interval History: Being followed for acute on chronic hypoxic respiratory failure secondary to acute CHF with preserved EF. doing well, no sob, awake alert, ABG reassuring Physical Exam 2 Vital Signs: Vital Signs: Last Vital Signs Temp 97.7 F 04/29/24 08:00 Pulse 78 04/29/24 08:00 Resp 20 04/29/24 08:00 BP 106/59 L 04/29/24 10:00 Pulse Ox 96 04/29/24 08:00 O2 Del Method Nasal Cannula 04/29/24 08:00 O2 Flow Rate 4 04/29/24 08:00 Oxygen Flow Rate 6 04/24/24 13:48 BMI result Body Mass Index 46.5 Objective Data Active Medications Acetaminophen (Acetaminophen 325 Mg Tablet) 650 mg PO Q6H PRN PRN Reason: Pain, Mild (Pain Scale 1-3), fever or headache Acetazolamide (Acetazolamide 250 Mg Tablet) 250 mg PO BID [facility] Last Admin: 04/29/24 09:59 Dose: 250 mg Documented By: LUTHER Albuterol Sulfate (Albuterol Sulfate (0.083%) 2.5 Mg/3 Ml Vial.Neb) 2.5 mg INHALE RQ4H WHILE AWAKE [facility] Last Admin: 04/29/24 11:31 Dose: Not Given Documented By: JEAN-PAUL Non-Admin Reason: Patient Refused Amlodipine Besylate (Amlodipine Besylate 2.5 Mg Tablet) 2.5 mg PO DAILY [facility]; Protocol Last Admin: 04/29/24 09:59 Dose: 2.5 mg Documented By: LUTHER Calcium Carbonate (Calcium Carbonate 750 Mg Tab.Chew) 750 mg PO Q4H PRN PRN Reason: Heartburn Clonazepam (Clonazepam 0.5 Mg Tablet) 0.5 mg PO DAILY PRN PRN Reason: Anxiety Last Admin: 04/26/24 16:49 Dose: 0.5 mg Documented By: SHIRIN Clonazepam (Clonazepam 1 Mg Tablet) 1 mg PO DAILY [facility] Last Admin: 04/29/24 10:01 Dose: 1 mg Documented By: LUTHER Fluticasone/Umeclidinium/Vilanterol (Fluticasone/Umeclidinium/Vilanterol 100/62.5/25 Blst.W.Dev) 1 puff INHALE RDAILY [facility] Last Admin: 04/29/24 07:37 Dose: 1 puff Documented By: JEAN-PAUL Furosemide (Furosemide 40 Mg Tablet) 40 mg PO DAILY [facility]; Protocol Heparin Sodium (Porcine) (Heparin Sodium,Porcine 5,000 Unit/Ml Vial) 5,000 unit SUBCUT Q12H [facility] Last Admin: 04/29/24 04:35 Dose: 5,000 unit Documented By: KELLI Vancomycin HCl 500 mg/ Sodium (Chloride) 110 mls @ 110 mls/hr IV Q24H [facility] Isosorbide Mononitrate (Isosorbide Mononitrate 30 Mg Tab.Er.24h) 30 mg PO DAILY [facility]; Protocol Last Admin: 04/29/24 10:00 Dose: 30 mg Documented By: LUTHER Magnesium Hydroxide (Milk Of Magnesia 30 Ml Oral.Susp) 30 ml PO DAILY PRN PRN Reason: Constipation Melatonin (Melatonin 3 Mg Tablet) 6 mg PO BEDTIME PRN PRN Reason: Insomnia Last Admin: 04/29/24 04:34 Dose: 6 mg Documented By: KELLI Ondansetron HCl (Ondansetron Hcl 4 Mg/2 Ml Vial) 4 mg IVPUSH Q8H PRN PRN Reason: Nausea and Vomiting Oxycodone HCl (Oxycodone Hcl Immed Release 15 Mg Tablet) 15 mg PO Q6H PRN PRN Reason: Pain, Moderate(Pain Scale 4-6) Last Admin: 04/29/24 10:01 Dose: 15 mg Documented By: LUTHER Pharmacy Consult (Consult Rx Vancomycin Dosing) 1 each MISCELLANE DAILY PRN PRN Reason: Consult order Sodium Chloride (0.9 % Sodium Chloride Flush 3 Ml Syringe) 3 ml IVFLUSH QSHIFT [facility] Last Admin: 04/29/24 09:59 Dose: 3 ml Documented By: LUTHER Labs 04/28/24 06:31 04/29/24 06:08 Labs: Laboratory Results - last 24 hr 04/28/24 04/28/24 04/29/24 06:31 12:13 06:08 O2 Saturation 86.0 ABG pH at Pt Temp 7.38 ABG pCO2 at Pt Temp 81 H* ABG pO2 at Pt Temp 58 L ABG HCO3 48 H ABG Base Excess (Actual) 20.3 Anion Gap 11 L Estim Creat Clear Calc 56.6 Estimated GFR 38 Random Glucose 149 H Calcium 8.2 L Magnesium 2.5 04/29/24 10:18 O2 Saturation 100.0 ABG pH at Pt Temp 7.43 ABG pCO2 at Pt Temp 65 H* ABG pO2 at Pt Temp 100 ABG HCO3 43 H ABG Base Excess (Actual) 16.7 Anion Gap Estim Creat Clear Calc Estimated GFR Random Glucose Calcium Magnesium Assessment and Plan (1) Diastolic heart failure: Status: Acute (2) Acute exacerbation of chronic obstructive pulmonary disease: Status: Acute Plan 64-year-old woman admitted with acute on chronic hypoxic respiratory failure secondary to acute COPD exacerbation and heart failure Acute on chronic hypercarbic, hypoxic respiratory failure d/t HFpEF, COPD ex amd pulmonary HTN. -presently BNP 86 -IV Lasix 40 mg b.i.d transitioned to oral Lasix 40 mg daily, once off diamox change to bid -On 3L of O2 at home. Adjusted O2 to keep sat around 90 to 92 -ABG today much improved C02 -Cardiology recommends Jardiance 10 mg, Aldactone 25 mg at discharge -Follow electrolytes, renal function and Monitor on telemetry, Cr slightly up today VERN with contraction alkalosis, likely due to over-diuresis Creatinine is a bit high today, monitor Metabolic alkalosis, treated with diamox 250mg bid x 6 doses COPD acute exacerbation resolved -completed steroid treatement -bronchodilators, continue Trelegy -[facility]AP [facility] and PRN during the day Chronic normocytic anemia -stable Acute Hypernatremia, resolved. Chronic osteomyelitis with partial hardware removal -Underwent right thigh subcutaneous drug delivery device removal, right thigh excisional debridement and wound VAC placement (wound vac clean) -Continue IV vancomycin, end date May 02 (total 6 weeks) -wound nurse following for wound vac care -Stable vanco level, vanco doses changed to IV 500 mg daily,end date May 02 -Leukocytosis likely due to steroids, follow CBC Elevated blood pressure readings -Resolved BP stable on amlodipine 2.5 mg and isosorbide 30 mg daily Chronic pain -Continue oxycodone 15 mg every 6 hours as needed Obstructive sleep apnea -Continue CPAP at night and during daytime, ABGs obtained well compensated respiratory acidosis Obesity class 3 -Discussed importance of weight management as this may be contributing to worsening of other comorbidities DVT prophylaxis with heparin Full code Patient requires continued inpatient hospitalization for management of acute congestive heart failure, requiring close BMP monitoring. PT eval Discussed with pt and spouse at bedside Quality Stroke Does the patient have a stroke diagnosis?: No VTE Prior VTE?: No VTE Risk Level:: Medical - moderate - high VTE Device Contraindication: Treatment Not Indicated VTE Drug Contraindication: N/A - Med Ordered
[2024-04-29 12:46] LABS: ABG Refer to POC result
--- NOTE | 2024-04-29 14:45 | MHC.CM.PN ---
PT is recommending home PT; CM will follow.
[2024-04-29 21:37] LABS: Vancomycin Random 14.6 mcg/mL (15-20)
[2024-04-29] MEDS: clonazePAM 0.5 MG TABLET PO (21:48)
[2024-04-29] MEDS: vancomycin HCL 500 MG in 0.9 % Sodium Chloride 100 ML 110 MG IV (23:16)
[2024-04-30] VITALS (10 sets, daily range): BP systolic 97–137; BP diastolic 47–63; PULSE 66–91; RESP 17–21; TEMP 36.1–37.1; O2SAT 92–95
[2024-04-30] MEDS: Heparin Sodium,Porcine 5,000 UNIT/ML VIAL 5000 UNIT SUBCUT ×2 (05:40→17:52)
[2024-04-30 07:18] LABS: Hematocrit 27.3 % (37.0-47.0); Hemoglobin 7.8 g/dl (12.0-16.0); Mean Corpuscular HGB Conc 28.6 g/dl (31.0-35.0); Mean Corpuscular Hemoglobin 25.9 pg (27.0-33.0); Mean Corpuscular Volume 90.7 fL (80.0-98.0); Platelet Count 210 X10*3/uL (160-400); Red Blood Count 3.01 X10*6/uL (4.20-5.50); Red Cell Distribution Width 15.8 % (11.0-16.0); White Blood Count 9.5 X10*3/uL (4.8-10.8)
[2024-04-30 07:28] LABS: Anion Gap 11 (12-20); Blood Urea Nitrogen 46 mg/dL (9-16); Calcium 8.3 mg/dL (8.4-10.2); Carbon Dioxide 39 mmol/L (22-29); Chloride 100 mmol/L (96-108); Creatinine Clr Calc Pharmacy 54.3; Creatinine Clr Calc Pharmacy 56.3; Estimated Glomerular Filt Rate 36; Estimated Glomerular Filt Rate 37; Glucose Random 165 mg/dL (60-115); Potassium 4.5 mmol/L (3.3-5.1); Sodium 145 mmol/L (135-145)
[2024-04-30] MEDS: Fluticasone/Umeclidinium/Vilanterol 100/62.5/25 BLST.W.DEV 1 PUFF INHALE (07:34)
[2024-04-30] MEDS: 0.9 % Sodium Chloride Flush 3 ML SYRINGE IVFLUSH ×2 (08:21→15:44)
[2024-04-30] MEDS: amLODIPine Besylate 2.5 MG TABLET PO (08:21)
[2024-04-30] MEDS: acetaZOLAMIDE 250 MG TABLET PO (08:22)
[2024-04-30] MEDS: Furosemide 40 MG TABLET PO (08:22)
[2024-04-30] MEDS: clonazePAM 1 MG TABLET PO (08:22)
[2024-04-30] MEDS: Isosorbide Mononitrate 30 MG TAB.ER.24H PO (08:22)
[2024-04-30 08:39] LABS: Immature Retic Fraction 21.6 % (3.0-15.9); Retic HGB Equivalent 25.5 pg (30.0-35.0); Reticulocyte Percent 2.5 % (0.5-1.8); Reticulocytes Absolute 0.075 X10*6/uL (0.026-0.095)
[2024-04-30] MEDS: oxyCODONE HCl Immed Release 15 MG TABLET PO ×3 (08:39→22:20)
[2024-04-30 09:11] LABS: Iron 46 mcg/dL (30-160); Lactate Dehydrogenase 218 U/L (122-220); Percent Iron Saturation 16 % (15-50); Total Iron Binding Capacity 279 mcg/dL (228-428); Unsaturated Iron Binding 233 ug/dL
[2024-04-30 09:29] LABS: Ferritin 52 ng/mL (10-250)
[2024-04-30] MEDS: Spironolactone 25 MG TABLET PO (11:36)
[2024-04-30] MEDS: Empagliflozin 10 MG TABLET PO (11:36)
--- NOTE | 2024-04-30 15:12 | P.PNIM_ITS ---
Subjective Subjective Date of Service: 04/30/24 Interval History: Hb 7.8 exertional dyspnea improved no edema Review of Systems Review of Systems: Yes all other systems are reviewed and are negative Physical Exam 2 Vital Signs: Vital Signs: Last Vital Signs Temp 97.7 F 04/30/24 12:00 Pulse 72 04/30/24 12:00 Resp 18 04/30/24 12:00 BP 115/55 L 04/30/24 12:00 Pulse Ox 93 04/30/24 12:00 O2 Del Method Nasal Cannula 04/30/24 12:00 O2 Flow Rate 3 04/30/24 12:00 Oxygen Flow Rate 6 04/24/24 13:48 BMI result Body Mass Index 46.5 Gen: in no acute distress HEENT: sclera anicteric, moist mucus membranes, no JVD Neck: supple Lungs: diminished Heart: regular rate and rhythm, no murmurs Abd: soft, non-tender, non-distended, obese Ext: no edema Skin: warm/well-perfused Neuro: alert and oriented x3, no focal findings Psych: appropriate affect Objective Data Active Medications Acetaminophen (Acetaminophen 325 Mg Tablet) 650 mg PO Q6H PRN PRN Reason: Pain, Mild (Pain Scale 1-3), fever or headache Acetazolamide (Acetazolamide 250 Mg Tablet) 250 mg PO BID [facility] Last Admin: 04/30/24 08:22 Dose: 250 mg Documented By: TERE Albuterol Sulfate (Albuterol Sulfate (0.083%) 2.5 Mg/3 Ml Vial.Neb) 2.5 mg INHALE RQ4H WHILE AWAKE [facility] Last Admin: 04/30/24 11:18 Dose: Not Given Documented By: BEATRIZ Non-Admin Reason: Patient Refused Amlodipine Besylate (Amlodipine Besylate 2.5 Mg Tablet) 2.5 mg PO DAILY [facility]; Protocol Last Admin: 04/30/24 08:21 Dose: 2.5 mg Documented By: TERE Calcium Carbonate (Calcium Carbonate 750 Mg Tab.Chew) 750 mg PO Q4H PRN PRN Reason: Heartburn Clonazepam (Clonazepam 1 Mg Tablet) 1 mg PO DAILY [facility] Last Admin: 04/30/24 08:22 Dose: 1 mg Documented By: TERE Empagliflozin (Empagliflozin 10 Mg Tablet) 10 mg PO DAILY [facility] Last Admin: 04/30/24 11:36 Dose: 10 mg Documented By: TERE Fluticasone/Umeclidinium/Vilanterol (Fluticasone/Umeclidinium/Vilanterol 100/62.5/25 Blst.W.Dev) 1 puff INHALE RDAILY [facility] Last Admin: 04/30/24 07:34 Dose: 1 puff Documented By: BEATRIZ Furosemide (Furosemide 40 Mg Tablet) 40 mg PO DAILY [facility]; Protocol Last Admin: 04/30/24 08:22 Dose: 40 mg Documented By: TERE Heparin Sodium (Porcine) (Heparin Sodium,Porcine 5,000 Unit/Ml Vial) 5,000 unit SUBCUT Q12H [facility] Last Admin: 04/30/24 05:40 Dose: 5,000 unit Documented By: KELLI Vancomycin HCl 500 mg/ Sodium (Chloride) 110 mls @ 110 mls/hr IV Q24H [facility] Last Infusion: 04/30/24 01:58 Dose: Infused Documented By: KELLI Isosorbide Mononitrate (Isosorbide Mononitrate 30 Mg Tab.Er.24h) 30 mg PO DAILY [facility]; Protocol Last Admin: 04/30/24 08:22 Dose: 30 mg Documented By: TERE Magnesium Hydroxide (Milk Of Magnesia 30 Ml Oral.Susp) 30 ml PO DAILY PRN PRN Reason: Constipation Melatonin (Melatonin 3 Mg Tablet) 6 mg PO BEDTIME PRN PRN Reason: Insomnia Last Admin: 04/29/24 23:15 Dose: 6 mg Documented By: KELLI Ondansetron HCl (Ondansetron Hcl 4 Mg/2 Ml Vial) 4 mg IVPUSH Q8H PRN PRN Reason: Nausea and Vomiting Oxycodone HCl (Oxycodone Hcl Immed Release 15 Mg Tablet) 15 mg PO Q6H PRN PRN Reason: Pain, Moderate(Pain Scale 4-6) Last Admin: 04/30/24 08:39 Dose: 15 mg Documented By: TERE Pharmacy Consult (Consult Rx Vancomycin Dosing) 1 each MISCELLANE DAILY PRN PRN Reason: Consult order Sodium Chloride (0.9 % Sodium Chloride Flush 3 Ml Syringe) 3 ml IVFLUSH QSHIFT [facility] Last Admin: 04/30/24 08:21 Dose: 3 ml Documented By: TERE Spironolactone (Spironolactone 25 Mg Tablet) 25 mg PO DAILY [facility]; Protocol Last Admin: 04/30/24 11:36 Dose: 25 mg Documented By: TERE Labs 04/30/24 06:26 10 06:26 Labs: Laboratory Results - last 24 hr 04/29/24 04/30/24 04/30/24 21:17 06:26 06:26 MCV 90.7 MCH 25.9 L MCHC 28.6 L RDW 15.8 Plt Count 210 MPV 10.0 Absolute Nucleated RBC 0.000 Nucleated RBC % (auto) 0.0 Absolute Retic 0.075 Percent Retic 2.5 H Immature Retic Fraction 21.6 H Retic Hgb Equivalent 25.5 L Anion Gap 11 L Estim Creat Clear Calc 54.3 56.3 Estimated GFR 36 Random Glucose Calcium Iron TIBC % Saturation Unsat Iron Binding Ferritin Lactate Dehydrogenase Random Vancomycin 14.6 L 04/30/24 06:26 MCV MCH MCHC RDW Plt Count MPV Absolute Nucleated RBC Nucleated RBC % (auto) Absolute Retic Percent Retic Immature Retic Fraction Retic Hgb Equivalent Anion Gap Estim Creat Clear Calc Estimated GFR 37 Random Glucose 165 H Calcium 8.3 L Iron 46 TIBC 279 % Saturation 16 Unsat Iron Binding 233 Ferritin 52 Lactate Dehydrogenase 218 Random Vancomycin Assessment and Plan (1) Diastolic heart failure: Status: Acute (2) Acute exacerbation of chronic obstructive pulmonary disease: Status: Acute Plan d7 64yo F with HFpEF, COPD, obesity, chronic osteomyelitis, chronic hypercarbic/hypoxic resp failure on home O2 + nighttime BiPAP admitted with acute hypoxia due to COPD + CHF exacerbations acute/chronic hypoxic/hypercarbic resp failure due to COPD + acute/chronic HFpEF - appears euvolemic on PO furosemide 40 mg daily, chage to bid once off acetazolamide - 2-4L O2 titrated to SaO2 88-92%, BiPAP at night - start spironolactone + empagliflozin as per Cardiology - recheck BMP, VBG, BNP in AM - completed steroids - continue Trelegy VERN possibly contraction alkalosis - monitor Cr carefully with diuresis metabolic alklaosis - d/c acetazolamide, recheck BMP + VBG in AM chronic normocytic anemia - likely anemia of chronic disease; recheck H+H in AM, transfuse if Hb <8 acute hypernatremia - resolved chronic osteomyelitis with partial hardware removal - recently nderwent right thigh subcutaneous drug delivery device removal, right thigh excisional debridement and wound VAC placement; continue IV vancomycin, end date 05/02 for total of 6 weeks - regional training manager following for VAC care - leukocytosis due to steroids HTN - amlodipine + Imdur chronic pain - prn oxycodone ALEKSEY - BiPAP at night and for naps morbid obesity - diet/exercise counseling VTE prophylaxis - unfractionated heparin dispo - home with VNA In my clinical judgment, the patient requires continued inpatient hospitalization for the following reasons: resp failure, VERN Total time managing care of this patient today: 45 minutes. Quality Stroke Does the patient have a stroke diagnosis?: No VTE Prior VTE?: No VTE Risk Level:: Medical - moderate - high VTE Device Contraindication: Treatment Not Indicated VTE Drug Contraindication: N/A - Med Ordered
[2024-04-30] MEDS: Omeprazole 20 MG CAPSULE.DR PO (15:44)
[2024-04-30 21:31] LABS: Vancomycin Random 14.5 mcg/mL (15-20)
[2024-04-30] MEDS: vancomycin HCL 500 MG in 0.9 % Sodium Chloride 100 ML 110 MG IV (22:15)
[2024-04-30] MEDS: Melatonin 3 MG TABLET 6 MG PO (22:21)
[2024-05-01] VITALS (9 sets, daily range): BP systolic 98–147; BP diastolic 49–62; PULSE 59–74; RESP 16–22; TEMP 35.6–36.7; O2SAT 93–95
[2024-05-01] MEDS: 0.9 % Sodium Chloride Flush 3 ML SYRINGE IVFLUSH ×3 (01:18→16:46)
[2024-05-01 06:44] LABS: Venous Blood Gas Refer to POC result
[2024-05-01 06:45] LABS: Hematocrit 26.8 % (37.0-47.0); Hemoglobin 7.8 g/dl (12.0-16.0); Mean Corpuscular HGB Conc 29.1 g/dl (31.0-35.0); Mean Corpuscular Volume 89.3 fL (80.0-98.0); Mean Platelet Volume 10.4 fL (9.4-12.3); Platelet Count 197 X10*3/uL (160-400); Red Cell Distribution Width 15.7 % (11.0-16.0); White Blood Count 8.6 X10*3/uL (4.8-10.8)
[2024-05-01] MEDS: Heparin Sodium,Porcine 5,000 UNIT/ML VIAL 5000 UNIT SUBCUT ×2 (06:47→17:25)
[2024-05-01] MEDS: Omeprazole 20 MG CAPSULE.DR PO (06:47)
[2024-05-01] MEDS: oxyCODONE HCl Immed Release 15 MG TABLET PO ×2 (06:49→17:30)
[2024-05-01 07:01] LABS: Anion Gap 9 (12-20); Blood Urea Nitrogen 50 mg/dL (9-16); Calcium 8.7 mg/dL (8.4-10.2); Carbon Dioxide 38 mmol/L (22-29); Chloride 103 mmol/L (96-108); Creatinine Clr Calc Pharmacy 46.2; Estimated Glomerular Filt Rate 30; Glucose Random 137 mg/dL (60-115); Potassium 4.3 mmol/L (3.3-5.1); Sodium 146 mmol/L (135-145)
[2024-05-01 07:07] LABS: B Type Natriuretic Peptide 24 pg/mL (<100)
[2024-05-01 07:35] LABS: VBG HCO3 44 mmol/L (22-26); VBG pCO2 85 mmHg; VBG pH 7.32 (7.32-7.43); VBG pO2 39 mmHg
[2024-05-01 07:36] LABS: Folate 4.5 ng/mL (> or = 4.0); Vitamin B12 378 pg/mL (200-900)
[2024-05-01] MEDS: Fluticasone/Umeclidinium/Vilanterol 100/62.5/25 BLST.W.DEV 1 PUFF INHALE (07:55)
--- NOTE | 2024-05-01 08:52 | PM.CNPUL ---
History of Present Illness History of Present Illness Consult date: 05/01/24 Chief complaint: COPD, chf Narrative: This is an inpatient pulmonary consulation. The patient is a 64 year old womenwith has a history of COPD, chronic respiratory failure and congestive heart failure. She was recently discharged from [facility] on 04/05/2024. At that time she was treated with IV Lasix, systemic steroids and bronchodilators. She returned back to baseline and was discharged home. This time she reports that she continued to have shortness of breath and her partner thought she seemed more sleepy, she had more lower extremity edema worse over the last several days. She was also recently hospitalized at [facility]. She had initially presented to the [facility] for right chronic thigh sinus track with the wound increasing in size and subcutaneous drug device exposed. She has a history of open supracondylar femur fracture 5 years ago with surgical treatment and post injury/postoperative infectious complications and fracture healing complications. She has been treated with infection suppression with doxycycline. She underwent surgical procedure to remove thigh subcutaneous drug delivery device with excisional debridement and placement of wound VAC., Operative cultures showed coordinated bacteria and on identifiable Gram-positive coccobacillus organism. She had a PICC line placed and was started on IV vancomycin plan for 6 weeks. In the ER, she was noted to be mildly lethargic, hypoxic. She was placed on BiPAP, she does use BiPAP at home at bedtime. Her ABGs seem compensated. In the ER she was given IV Lasix, Solu-Medrol, albuterol. She will be admitted for further management and treatment of acute hypoxic respiratory failure secondary to COPD and possibly CHF. I personally reviewed her chest x-ray demonstrating increased cardiac size and also congestive heart failure. She was given additional diuresis. Effectively. Her blood gas demonstrated a significantly elevated CO2 but is at baseline with evidence of chronic hypercarbic respiratory failure. She continues use her BiPAP at nighttime. Settings are 18/8. She tolerates well. Her AHI right now is 1.1 under current settings. Her volume status is also significantly better. Although, her bicarb also has increased needing to start acetazolamide to help her with her acid-base disorders. Review of Systems Review of Systems: Denies any recent fever chills or decrease in appetite respiratory See HPI cardiovascular is adjustment of any PND or edema gastrointestinal denies any dysphagia abdominal pain nausea vomiting or diarrhea genitourinary denies any dysuria frequency or hematuria musculoskeletal denies any joint pain or swelling neuropsych denies any weakness or seizures all other systems reviewed are negative PMFSH Past Medical History Medical History Enterococcus faecalis infection MSSA (methicillin susceptible Staphylococcus aureus) MRSA (methicillin resistant staph aureus) culture positive Encounter for management of wound VAC Chronic osteomyelitis Hypertension Iron deficiency anemia Open wound of lower extremity COPD (chronic obstructive pulmonary disease) Femur fracture Crohn's colitis Morbid obesity due to excess calories Closed tibia fracture Acute on chronic respiratory failure with hypoxia and hypercapnia Wound of left lower extremity Nonrheumatic mitral (valve) stenosis Acute on chronic right heart failure Paroxysmal atrial fibrillation Dyspnea ALEKSEY treated with BiPAP Hypoventilation associated with obesity Pickwickian syndrome Chronic hypercapnic respiratory failure Opioid use disorder Family History Family History Other Adopted Surgical History Surgical History Hx of cholecystectomy History of open reduction and internal fixation (ORIF) procedure Status post open reduction and internal fixation (ORIF) of fracture Recent surgical procedure on lower extremity Social History Social History Household Members: Significant Other Household Members Other:: , Hoa. Daughter Carolyn, 21. Daughter's Boyfriend, 22. Neice, 21 Housing: House Do you presently have visiting nurse or other home services: Yes Alcohol intake: former Year quit: 1989 Patient Tobacco Use Status: Former Tobacco user Years Smoked: 25 Second Hand Smoke Exposure: No Advance Directives Date on File: 12/16/20 service: Yes Current occupational status: disabled Meds Allergies Allergy/AdvReac Type Severity Reaction Status Date / Time gabapentin Allergy Mild Anxiety Verified 04/24/24 13:52 morphine [MORPHINE] Allergy Unknown ANAPHALAXIS, Verified 04/24/24 13:52 anaphylaxis propofol [From Diprivan] Allergy Anaphylaxis Verified 04/24/24 13:52 Active Medications: Current Medications Acetaminophen (Acetaminophen 325 Mg Tablet) 650 mg PO Q6H PRN PRN Reason: Pain, Mild (Pain Scale 1-3), fever or headache Albuterol Sulfate (Albuterol Sulfate (0.083%) 2.5 Mg/3 Ml Vial.Neb) 2.5 mg INHALE RQ4H WHILE AWAKE [facility] Last Admin: 05/01/24 07:55 Dose: Not Given Amlodipine Besylate (Amlodipine Besylate 2.5 Mg Tablet) 2.5 mg PO DAILY [facility]; Protocol Last Admin: 04/30/24 08:21 Dose: 2.5 mg Calcium Carbonate (Calcium Carbonate 750 Mg Tab.Chew) 750 mg PO Q4H PRN PRN Reason: Heartburn Clonazepam (Clonazepam 1 Mg Tablet) 1 mg PO DAILY [facility] Last Admin: 04/30/24 08:22 Dose: 1 mg Empagliflozin (Empagliflozin 10 Mg Tablet) 10 mg PO DAILY [facility] Last Admin: 04/30/24 11:36 Dose: 10 mg Fluticasone/Umeclidinium/Vilanterol (Fluticasone/Umeclidinium/Vilanterol 100/62.5/25 Blst.W.Dev) 1 puff INHALE RDAILY [facility] Last Admin: 05/01/24 07:55 Dose: 1 puff Furosemide (Furosemide 40 Mg Tablet) 40 mg PO DAILY [facility]; Protocol Last Admin: 04/30/24 08:22 Dose: 40 mg Heparin Sodium (Porcine) (Heparin Sodium,Porcine 5,000 Unit/Ml Vial) 5,000 unit SUBCUT Q12H [facility] Last Admin: 05/01/24 06:47 Dose: 5,000 unit Vancomycin HCl 500 mg/ Sodium (Chloride) 110 mls @ 110 mls/hr IV Q24H [facility] Last Infusion: 04/30/24 23:51 Dose: Infused Isosorbide Mononitrate (Isosorbide Mononitrate 30 Mg Tab.Er.24h) 30 mg PO DAILY [facility]; Protocol Last Admin: 04/30/24 08:22 Dose: 30 mg Magnesium Hydroxide (Milk Of Magnesia 30 Ml Oral.Susp) 30 ml PO DAILY PRN PRN Reason: Constipation Melatonin (Melatonin 3 Mg Tablet) 6 mg PO BEDTIME PRN PRN Reason: Insomnia Last Admin: 04/30/24 22:21 Dose: 6 mg Omeprazole (Omeprazole 20 Mg Capsule.Dr) 20 mg PO DAILY@0630 [facility] Last Admin: 05/01/24 06:47 Dose: 20 mg Ondansetron HCl (Ondansetron Hcl 4 Mg/2 Ml Vial) 4 mg IVPUSH Q8H PRN PRN Reason: Nausea and Vomiting Oxycodone HCl (Oxycodone Hcl Immed Release 15 Mg Tablet) 15 mg PO Q6H PRN PRN Reason: Pain, Moderate(Pain Scale 4-6) Last Admin: 05/01/24 06:49 Dose: 15 mg Pharmacy Consult (Consult Rx Vancomycin Dosing) 1 each MISCELLANE DAILY PRN PRN Reason: Consult order Sodium Chloride (0.9 % Sodium Chloride Flush 3 Ml Syringe) 3 ml IVFLUSH QSHIFT [facility] Last Admin: 05/01/24 01:18 Dose: 3 ml Spironolactone (Spironolactone 25 Mg Tablet) 25 mg PO DAILY [facility]; Protocol Last Admin: 04/30/24 11:36 Dose: 25 mg Home Medications ?Medication ?Instructions ?Recorded ?Confirmed ?Last Taken ?Type theophylline 400 mg 400 mg PO DAILY 01/18/23 04/24/24 04/24/24 History capsule,extended release 24 hr (Roque-24) vancomycin 1.5 gram/300 mL in 0.9 1.5 g IV Q24H 04/03/24 04/24/24 04/23/24 History % sodium chloride intravenous clonazepam 0.5 mg tablet 0.5 mg PO DAILY PRN Anxiety 04/24/24 04/24/24 Unknown History clonazepam 1 mg tablet 1 mg PO DAILY 04/24/24 04/24/24 Unknown History fluticasone fur. 100 mcg-umeclid 1 ea inhalation DAILY 04/24/24 04/24/24 04/24/24 History 62.5 mcg-vilant 25 mcg inhalat.powder (Trelegy Ellipta) furosemide 20 mg tablet 40 mg PO DAILY 04/24/24 04/24/24 04/24/24 History oxycodone 5 mg tablet 5 mg PO Q6H PRN Pain 04/24/24 04/24/24 Unknown History Physical Exam Vital Signs: Vital Signs: Last Vital Signs Temp 96.0 F L 05/01/24 08:00 Pulse 59 05/01/24 08:00 Resp 20 05/01/24 08:00 BP 102/52 L 05/01/24 08:00 Pulse Ox 95 05/01/24 08:00 O2 Del Method CPAP 05/01/24 08:00 O2 Flow Rate 3 05/01/24 00:00 Oxygen Flow Rate 6 04/24/24 13:48 BMI result Body Mass Index 46.5 Const: General: tired appearing HEENT: Head: Yes normocephalic Eyes: Pupils: Equal, round and reactive pupils present Neck: Neck: Yes normal visual inspection, Yes full ROM and Yes no lymphadenopathy Chest: Chest palpation & inspection: normal inspection of the chest Resp: Auscultation: diminished lung sounds Cardio: Rate: regular rate Rhythm: regular rhythm Heart sounds: S1 normal heart sound present and S2 normal heart sound present GI: Palpation (GI): Soft to palpation and nontender Auscultation: normal bowel sounds Skin: General skin exam: rashes and/or lesions noted Neuro: Cranial nerves: Yes Equal, round and reactive pupils present Extrem: General: No clubbing, No cyanosis and Yes edema Results Laboratory Findings 05/01/24 06:30 05/01/24 06:30 ABG, PT/INR, D-dimer: PT/INR, D-dimer PT 11.8 SEC (10.9-12.4) 04/24/24 15:01 INR 1.0 (0.9-1.1) 04/24/24 15:01 Abnormal lab findings: Abnormal Labs 04/24/24 04/24/24 04/24/24 15:01 15:06 16:39 WBC RBC 3.25 L Hgb 8.3 L Hct 29.1 L MCH 25.5 L MCHC 28.5 L Neut % (Auto) 78.2 H Lymph % (Auto) 12.1 L [place] % (Auto) Lymph # (Auto) 1.0 L Percent Retic Immature Retic Fraction Retic Hgb Equivalent ABG pCO2 at Pt Temp 83 H* ABG pO2 at Pt Temp 77 L ABG HCO3 49 H VBG pH 7.30 L VBG HCO3 49 H Sodium 148 H Chloride Carbon Dioxide 42 H* Anion Gap BUN 17 H Creatinine Random Glucose 130 H Calcium Total Protein Albumin Random Vancomycin 04/25/24 04/27/24 04/28/24 04:57 06:43 06:31 WBC 15.1 H RBC 3.04 L 3.67 L D 3.23 L Hgb 7.7 L 9.3 L D 8.1 L Hct 27.1 L 32.9 L D 30.0 L MCH 25.3 L 25.3 L 25.1 L MCHC 28.4 L 28.3 L 27.0 L Neut % (Auto) 95.3 H Lymph % (Auto) 3.6 L [place] % (Auto) 0.6 L Lymph # (Auto) 0.3 L Percent Retic Immature Retic Fraction Retic Hgb Equivalent ABG pCO2 at Pt Temp ABG pO2 at Pt Temp ABG HCO3 VBG pH VBG HCO3 Sodium 147 H 146 H 146 H Chloride 93 L Carbon Dioxide 40 H* 44 H* 43 H* Anion Gap 10 L BUN 21 H 45 H 41 H Creatinine 1.59 H Random Glucose 208 H 162 H 138 H Calcium Total Protein 6.4 L Albumin 3.3 L Random Vancomycin 04/28/24 04/28/24 04/29/24 11:05 12:13 06:08 WBC RBC Hgb Hct MCH MCHC Neut % (Auto) Lymph % (Auto) [place] % (Auto) Lymph # (Auto) Percent Retic Immature Retic Fraction Retic Hgb Equivalent ABG pCO2 at Pt Temp 81 H* ABG pO2 at Pt Temp 58 L ABG HCO3 48 H VBG pH VBG HCO3 Sodium Chloride Carbon Dioxide 39 H Anion Gap 11 L BUN 48 H Creatinine 1.41 H Random Glucose 149 H Calcium 8.2 L Total Protein Albumin Random Vancomycin 20.4 H 04/29/24 04/29/24 04/30/24 10:18 21:17 06:26 WBC RBC 3.01 L Hgb 7.8 L Hct 27.3 L MCH 25.9 L MCHC 28.6 L Neut % (Auto) Lymph % (Auto) [place] % (Auto) Lymph # (Auto) Percent Retic 2.5 H Immature Retic Fraction 21.6 H Retic Hgb Equivalent 25.5 L ABG pCO2 at Pt Temp 65 H* ABG pO2 at Pt Temp ABG HCO3 43 H VBG pH VBG HCO3 Sodium Chloride Carbon Dioxide 39 H Anion Gap 11 L BUN 46 H Creatinine 1.47 H Random Glucose Calcium Total Protein Albumin Random Vancomycin 14.6 L 04/30/24 04/30/24 05/01/24 06:26 20:56 06:30 WBC RBC 3.00 L Hgb 7.8 L Hct 26.8 L MCH 26.0 L MCHC 29.1 L Neut % (Auto) Lymph % (Auto) [place] % (Auto) Lymph # (Auto) Percent Retic Immature Retic Fraction Retic Hgb Equivalent ABG pCO2 at Pt Temp ABG pO2 at Pt Temp ABG HCO3 VBG pH VBG HCO3 Sodium 146 H Chloride Carbon Dioxide 38 H Anion Gap 9 L BUN 50 H Creatinine 1.42 H 1.73 H Random Glucose 165 H 137 H Calcium 8.3 L Total Protein Albumin Random Vancomycin 14.5 L 05/01/24 06:44 WBC RBC Hgb Hct MCH MCHC Neut % (Auto) Lymph % (Auto) [place] % (Auto) Lymph # (Auto) Percent Retic Immature Retic Fraction Retic Hgb Equivalent ABG pCO2 at Pt Temp ABG pO2 at Pt Temp ABG HCO3 VBG pH VBG HCO3 44 H Sodium Chloride Carbon Dioxide Anion Gap BUN Creatinine Random Glucose Calcium Total Protein Albumin Random Vancomycin Assessment and Plan (1) Acute exacerbation of chronic obstructive pulmonary disease: Status: Acute (2) Acute on chronic right heart failure: Status: Acute (3) Acute on chronic respiratory failure with hypoxia and hypercapnia: Status: Acute (4) Pickwickian syndrome: Status: Acute (5) ALEKSEY treated with BiPAP: Status: Acute Plan continue VPAP 18/8 continue oxygen 2-3 L to keep pox 89-96% continue respiratory therapy Add Diamox 250mg po daily while in the hospital. However, would not be safe for her to be on a standing dose as an outpt until she is established with pulmonary here at [place]. diuresis as tolerated Wound care/pain management Will set up out pt follow up with [facility]. Procedures Date of Service Date of Service: 05/01/24
[2024-05-01] MEDS: acetaZOLAMIDE 250 MG TABLET PO (09:56)
[2024-05-01] MEDS: Empagliflozin 10 MG TABLET PO (09:56)
[2024-05-01] MEDS: Spironolactone 25 MG TABLET PO (09:57)
[2024-05-01] MEDS: clonazePAM 1 MG TABLET PO (09:57)
[2024-05-01] MEDS: Furosemide 40 MG TABLET PO (09:58)
[2024-05-01] MEDS: amLODIPine Besylate 2.5 MG TABLET PO (10:00)
[2024-05-01] MEDS: Isosorbide Mononitrate 30 MG TAB.ER.24H PO (10:00)
--- NOTE | 2024-05-01 13:38 | MHC.CM.PN ---
Pt has not been medically cleared for DC, she requires ongoing care for respiratory failure and VERN. She is active with [facility] and [facility] home infusion, updates sent to them.
--- NOTE | 2024-05-01 14:38 | HO.WOUND ---
Wound Consult :Follow up 64yr old? [place] [facility] [place] - See progress notes and H&P for detailed history.? Wound consult follow up for Right lateral thigh wound.? Patient agreeable to assessment and photo documentation.? Per Dr. Solorzano patient is set for d/c to home with [facility] services today after blood transfusion complete. Pt reports no concern with Durafiber AG packing over the weekend - dressing assessed drainge observed no leaking noted. Dressing changed and new Durafiber AG packing placed. Patient tolerated well. The patient reports understanding that her current vac needs attention prior to re-application. She reports she will contact her home nurse [employer] to work to get new vac for placement this week. Wound bed is clean red moist tissue with small yellow slough noted - no odorous drainage noted. Periwound intact. Patient is clearly benefitting from wound vac application - patient educated to work to get new VAC REILLY to restart NPWT - she and her demonstrate understanding. Recommendations: 1. Right Upper Lateral Leg: Cleanse and irrigate with NS, pat dry. Apply skin prep to periwound, lightly pack with Durafiber AG, cover with dry gauze dressing. Change every 3 days. Once home and wound vac available coordinate with your [facility] service to re-apply your wound vac per Dr. Mills orders.
[2024-05-01] MEDS: Furosemide 20 MG/2 ML VIAL IVPUSH (16:43)
--- NOTE | 2024-05-01 17:03 | PC.NURSE ---
Pt received blood transfusion and tolerated well. Per blood bank pt noted as high TACO risk and per attached protocol blood infused after initial 15 minutes blood was run at 75cc an hour until 4 hr sho reached and remaining blood discarded. Pt denies any new or changed symptoms. IV lasix given with effect pending.
--- NOTE | 2024-05-01 18:04 | W.MHC.F2F ---
Service Date Service Date: 05/01/24 Encounter Date of encounter: 05/01/24 Reasons for Services Signs and symptoms assessed: CHF COPD Reason for residential: medication management, medication treatment, teach disease management and other (CHF) Reason for physical therapy: home safety and mobility, therapeutic exercises, gait/transfer training, assess need for DME and ADL training MD Overseeing Care: Sedrick Ramon Homebound: Leaving the home is medically contraindicated at this time without the asist of a device and/or another person due th the listed conditions above and below. Reason homebound: shortness of breath with minimal effort and weakness related to hospital stay Certification: Based on the above findings, I certify that this patient is confined to the home and needs intermittent residential care, physical therapy and/or speech therapy, or continues to need occupational therapy. The patient is under my care, and I have initiated the establishment of the plan of care. The patient will be followed by a physician who will periodically review the plan of care. Time Spent With Patient Time: Total time managing care of this patient today ____ minutes.
--- NOTE | 2024-05-01 18:11 | PM.DS ---
DS: Providers Provider Date of Service: 05/01/24 Date of admission: 04/24/24 17:42 Date of discharge: 05/01/24 Primary care physician: Sedrick Ramon MD Consults: 04/24/24 17:42 Consult to Cardiology Routine Consulting Provider: [facility] Reason for consultation: ? CHF 04/25/24 14:25 Consult to Wound Care Routine Reason for consultation: wound vac change 05/01/24 07:50 Consult to Pulmonology Routine Consulting Provider: [facility] Pul[facility] Services Reason for consultation: COPD,OHS,CHF, BiPAP. ?diamox DS: Diagnosis Discharge Diagnosis (1) Acute exacerbation of chronic obstructive pulmonary disease: Status: Acute (2) Acute on chronic right heart failure: Status: Acute (3) Acute on chronic respiratory failure with hypoxia and hypercapnia: Status: Acute (4) Pickwickian syndrome: Status: Acute (5) ALEKSEY treated with BiPAP: Status: Acute (6) Chronic anemia: Status: Acute (7) Acute on chronic heart failure with preserved ejection fraction (HFpEF): Status: Acute DS: Summary Hospital Course Hospital Course: From the history and physical by the admitting hospitalist, Meagan Farrar NP, 04/24/24: 64 year old women presenting with increased shortness of breath. Patient has a history of COPD and congestive heart failure. She was recently discharged from [facility] on 04/05/2024. At that time she was treated with IV Lasix, systemic steroids and bronchodilators. She returned back to baseline and was discharged home. This time she reports that she continued to have shortness of breath and her partner thought she seemed more sleepy, she had more lower extremity edema worse over the last several days. She was also recently hospitalized at [facility]. She had initially presented to the [facility] for right chronic thigh sinus track with the wound increasing in size and subcutaneous drug device exposed. She has a history of open supracondylar femur fracture 5 years ago with surgical treatment and post injury/postoperative infectious complications and fracture healing complications. She has been treated with infection suppression with doxycycline. She underwent surgical procedure to remove thigh subcutaneous drug delivery device with excisional debridement and placement of wound VAC., Operative cultures showed coordinated bacteria and on identifiable Gram-positive coccobacillus organism. She had a PICC line placed and was started on IV vancomycin plan for 6 weeks. In the ER, she was noted to be mildly lethargic, hypoxic. She was placed on BiPAP, she does use BiPAP at home at bedtime. Her ABGs seem compensated. In the ER she was given IV Lasix, Solu-Medrol, albuterol. She will be admitted for further management and treatment of acute hypoxic respiratory failure secondary to COPD and possibly CHF. 64yo F with HFpEF + R-sided HF/pHTN, COPD, obesity, chronic osteomyelitis, chronic hypercarbic/hypoxic resp failure on home O2 + nighttime BiPAP was admitted with acute hypoxia due to COPD + CHF exacerbations. Hospital course by problem: acute/chronic hypoxic/hypercarbic resp failure due to COPD + acute/chronic HFpEF + R-sided HF/pHTN - diuresed with IV furosemide and then transitioned to usual dose of PO furosemide 40 mg daily - treated with acetazolamide for metabolic alkalosis - Cardiology consulted; added Imdur, spironolactone, and empagliflozin - completed a course of steroids; Trelegy continued; Pulmonology consulted and patient will transition care to [facility] Pulmonology - 2-4L O2 titrated to SaO2 88-92%, BiPAP at night 12/03 - will recheck BMP in 1 week chronic normocytic anemia - likely anemia of chronic disease; due to severe deconditioning and dyspnea, patient did get transfused 1u of packed RBCs for Hb 7.8; post-transfuson Hb was 10. chronic osteomyelitis with partial hardware removal - recently underwent right thigh subcutaneous drug delivery device removal, right thigh excisional debridement and wound VAC placement; continue IV vancomycin, end date 05/02 for total of 6 weeks - tub tender followed; recommendations as below She was discharged home with VNA services. Time Attestation Discharge Coordination Time (in mins): 45 Quality: Safe Use of Opioids Does Pt have an Active Cancer Diagnosis on the Problem List?: No Quality: Stroke Does the patient have a stroke diagnosis?: No Physical Exam Vital Signs: Vital Signs: Last Vital Signs Temp 98.0 F 05/01/24 16:10 Pulse 74 05/01/24 16:10 Resp 18 05/01/24 16:10 BP 127/62 05/01/24 16:10 Pulse Ox 95 05/01/24 16:00 O2 Del Method Nasal Cannula 05/01/24 16:00 O2 Flow Rate 3.0 05/01/24 16:00 Oxygen Flow Rate 6 04/24/24 13:48 BMI result Body Mass Index 46.5 DS: Data Data Completed and Pending Completed studies during hospitalization [Text1]: Procedures Assistance with Respiratory Ventilation, Less than 24 Consecutive Hours, Continuous Positive Airway Pressure (05/03/22) Insertion of Infusion Device into Left Cephalic Vein, Percutaneous Approach (02/19/22) Labs on day of discharge: Laboratory Results - last 24 hr 04/30/24 05/01/24 05/01/24 20:56 06:30 06:44 WBC 8.6 RBC 3.00 L Hgb 7.8 L Hct 26.8 L MCV 89.3 MCH 26.0 L MCHC 29.1 L RDW 15.7 Plt Count 197 MPV 10.4 Absolute Nucleated RBC 0.000 Nucleated RBC % (auto) 0.0 VBG pH 7.32 VBG pCO2 85 VBG pO2 39 VBG HCO3 44 H VBG O2 Saturation 58.0 VBG Base Excess 16.0 Sodium 146 H Potassium 4.3 Chloride 103 Carbon Dioxide 38 H Anion Gap 9 L BUN 50 H Creatinine 1.73 H Estim Creat Clear Calc 46.2 Estimated GFR 30 Random Glucose 137 H Calcium 8.7 B-Natriuretic Peptide 24 Vitamin B12 378 Folate 4.5 Random Vancomycin 14.5 L Blood Type O Negative Antibody Screen NEGATIVE Crossmatch See Detail Discharge Plan Discharge Anticipated Discharge Date/Time: 05/01/24 18:05 Patient Disposition: Home Health Service Discharge Diagnosis: acute/chronic hypoxic/hypercarbic respiratory failure CHF COPD Referrals: Sedrick Ramon MD [Primary Care Provider] - 1 Week Eusebio Farrar MD [Physician] - 2 Weeks Discharge Medications: New isosorbide mononitrate 30 mg Tablet Extended Release 24 Hr 30 mg PO DAILY Qty: 30 0RF Protocol: Hold for SBP< HOLD for SBP < : 90 spironolactone 25 mg Tablet 25 mg PO DAILY Qty: 30 0RF Protocol: Hold for SBP< HOLD for SBP < : 90 Jardiance 10 mg Tablet 10 mg PO DAILY Qty: 30 0RF Continued vancomycin in 0.9 % sodium chl 1.5 gram/300 mL Solution 1.5 g IV Q24H Trelegy Ellipta 100-62.5-25 mcg blister with device 1 ea INHALATION DAILY furosemide 20 mg tablet 40 mg PO DAILY clonazepam 0.5 mg Tablet 0.5 mg PO DAILY PRN (Reason: Anxiety) clonazepam 1 mg Tablet 1 mg PO DAILY oxycodone 5 mg Tablet 5 mg PO Q6H PRN (Reason: Pain) Roque-24 400 mg capsule,extended release 24hr 400 mg PO DAILY Discharge Orders: Discharge Order (Routine); Ordered 05/01/24 Ordered By: Naresh Solorzano Diet: Low salt diet Activity on Discharge: As tolerated Stand Alone Forms: Patient Portal Discharge page Print Language: Persian Other Ambulatory Orders: Basic Metabolic Panel (Routine) Timeframe: 1 Week Facility: [facility] - Location: Laboratory Ordered By: Naresh Solorzano Activity Restrictions/Additional Instructions: Topical Wound Care Recommendations: 1. Right Upper Lateral Leg: Cleanse and irrigate with NS, pat dry. Apply skin prep to periwound, lightly pack with Durafiber AG, cover with dry gauze dressing. Change every 3 days. Once home and wound vac available coordinate with your VNA service to re-apply your wound vac per Dr. Mills orders. Care Plan Goals: cardiopulmonary health Health Concerns: acute/chronic hypoxic/hypercarbic respiratory failure CHF COPD Plan of Treatment: continue BiPAP at night and for naps, pressure settings 18/8 continue furosemide start isosorbide mononitrate 30 mg daily, empagliflozin 10 mg daily, and spironolactone 25 mg daily repeat BMP in 1 week follow up with [facility] Pulmonology in 2 weeks Please follow up with your primary care doctor within 1 week. Return to the hospital if you experience recurrent or worsening symptoms. Assessment: See Discharge Summary.
[2024-05-01 18:38] LABS: Anion Gap 14 (12-20); Blood Urea Nitrogen 47 mg/dL (9-16); Carbon Dioxide 34 mmol/L (22-29); Chloride 100 mmol/L (96-108); Creatinine Clr Calc Pharmacy 51.2; Estimated Glomerular Filt Rate 34; Glucose Random 114 mg/dL (60-115); Potassium 4.9 mmol/L (3.3-5.1); Sodium 143 mmol/L (135-145)
== END 2024-05-01 20:05 | disposition home health service (06) | DRG 291 ==
LOC: HO.ED 18:00 → HO.EDOVER 18:12 → HO.IMC 04-25 13:02
PROVIDERS: Hospitalist; Internal Medicine; Physician Assistant; Physician Assistant Medical; Admitting Provider Nurse Practitioner Acute Care; Emergency Provider Emergency Medicine; PCP Internal Medicine; Visit Provider Family Medicine
DX: I11.0 Hypertensive heart disease with heart failure (principal); I50.33 Acute on chronic diastolic (congestive) heart failure; J96.21 Acute and chronic respiratory failure with hypoxia; J96.22 Acute and chronic respiratory failure with hypercapnia; E87.4 Mixed disorder of acid-base balance; E87.0 Hyperosmolality and hypernatremia; N17.9 Acute kidney failure, unspecified; M86.651 Other chronic osteomyelitis, right thigh; J44.1 Chronic obstructive pulmonary disease with (acute) exacerbation; Z68.42 Body mass index [BMI] 45.0-49.9, adult; E66.2 Morbid (severe) obesity with alveolar hypoventilation; I27.29 Other secondary pulmonary hypertension; I50.813 Acute on chronic right heart failure; G89.29 Other chronic pain; D64.9 Anemia, unspecified; Z20.822 Contact with and (suspected) exposure to COVID-19; Z71.3 Dietary counseling and surveillance; Z99.81 Dependence on supplemental oxygen; Z87.891 Personal history of nicotine dependence; Z79.899 Other long term (current) drug therapy
CPT/HCPCS: 0241U; 36415; 36600; 71045; 80048; 80053; 80202; 82565; 82607; 82728; 82746; 82803; 83540; 83615; 83735; 83880; 84484; 85014; 85018; 85025; 85027; 85045; 85379; 85610; 86850; 86900; 86901; 86923; 87633; 93005; 93306; 94640; 97162; 99283; 99285; J1644; J1940; J2919; J3370; J3371; P9016; Q9957

== ENCOUNTER 2024-04-24 17:42 | Outpatient (BNV) | payer MEDICARE, MEDICAID, SELFPAY | END 2024-04-25 07:00 | PROVIDERS: Admitting Provider Nurse Practitioner Acute Care; Emergency Provider Emergency Medicine; Visit Provider Internal Medicine Cardiovascular Disease | DX: I35.0 Nonrheumatic aortic (valve) stenosis (principal); I34.81 Nonrheumatic mitral (valve) annulus calcification; I27.20 Pulmonary hypertension, unspecified | CPT/HCPCS: 93306 ==

== ENCOUNTER → 2024-04-24 17:42 | Outpatient (BNV) | payer MEDICARE, MEDICAID, SELFPAY | PROVIDERS: Admitting Provider Nurse Practitioner Acute Care; Emergency Provider Emergency Medicine; Visit Provider Internal Medicine Cardiovascular Disease | DX: I50.30 Unspecified diastolic (congestive) heart failure (principal) | CPT/HCPCS: 99223; 99233 ==

== ENCOUNTER → 2024-04-24 17:42 | Outpatient (BNV) | payer MEDICARE, MEDICAID, SELFPAY | PROVIDERS: Admitting Provider Nurse Practitioner Acute Care; Emergency Provider Emergency Medicine; PCP Internal Medicine; Visit Provider Hospitalist | DX: J44.1 Chronic obstructive pulmonary disease with (acute) exacerbation (principal); I50.813 Acute on chronic right heart failure; J96.21 Acute and chronic respiratory failure with hypoxia; J96.22 Acute and chronic respiratory failure with hypercapnia; E66.2 Morbid (severe) obesity with alveolar hypoventilation; G47.33 Obstructive sleep apnea (adult) (pediatric) | CPT/HCPCS: 99223 ==

== ENCOUNTER → 2024-04-24 17:42 | Outpatient (BNV) | payer MEDICARE, MEDICAID, SELFPAY | PROVIDERS: Admitting Provider Nurse Practitioner Acute Care; Emergency Provider Emergency Medicine; Visit Provider Nurse Practitioner Acute Care | DX: I50.30 Unspecified diastolic (congestive) heart failure (principal); J44.1 Chronic obstructive pulmonary disease with (acute) exacerbation | CPT/HCPCS: 99223; 99232; 99239; G0180 ==

== ENCOUNTER 2024-05-21 02:17 | Inpatient (IN) | payer MEDICARE, MEDICAID, SELFPAY ==
[2024-05-21] VITALS (12 sets, daily range): BP systolic 114–163; BP diastolic 42–96; PULSE 72–88; RESP 14–21; TEMP 36.3–36.8; O2SAT 82–100; BMI 49.4; BMI 50.5
--- NOTE | 2024-05-21 | ECG_ITS ---
Test Reason : SOB Blood Pressure : / mmHG Vent. Rate : 081 BPM Atrial Rate : 081 BPM P-R Int : 182 ms QRS Dur : 086 ms QT Int : 352 ms P-R-T Axes : 058 049 053 degrees QTc Int : 408 ms Normal sinus rhythm Normal ECG No previous ECGs available Referred By: Flores Wiley Electronically Signed By:Zach Calle
--- NOTE | ~2024-05-21 | XR_ITS ---
EXAMINATION: XR CHEST CLINICAL INFORMATION: Dyspnea. COMPARISON: Chest radiograph 04/24/2024 TECHNIQUE: Frontal view of the chest was obtained. FINDINGS: Cardiac silhouette remains enlarged. Mild blunting of left costophrenic sulcus. Diffuse pulmonary vascular indistinctness and fine pulmonary opacities. No focal pulmonary consolidation. Dense aortic calcific atherosclerosis. XR/XR chest 1V IMPRESSION: *Findings suspicious for pulmonary vascular congestion. *Cardiomegaly unchanged compared with 04/24/2024. *Possible trace left pleural effusion. Electronically signed by: Rfuino Infante MD 05/21/2024 04:15 AM EDT
[2024-05-21] MEDS: methylPREDNISolone Sod Succ 125 MG/2 ML VIAL 60 MG IVPUSH (02:36)
[2024-05-21 03:01] LABS: MANUAL DIFF FLAG NO
[2024-05-21 03:03] LABS: Basophils Percent Auto 0.3 % (0-2); Eosinophils Absolute Auto 0.2 X10*3/uL (0.0-0.4); Eosinophils Percent Auto 2.6 % (0-4); Hematocrit 31.1 % (37.0-47.0); Imm Gran Abs Auto 0.03 X10*3/uL (0.00-0.03); Imm Gran Pct Auto 0.3 % (0.0-0.4); Lymphocytes Absolute Auto 0.7 X10*3/uL (1.2-4.9); Lymphocytes Percent Auto 7.9 % (20-40); Mean Corpuscular HGB Conc 28.9 g/dl (31.0-35.0); Mean Corpuscular Hemoglobin 26.4 pg (27.0-33.0); Mean Corpuscular Volume 91.2 fL (80.0-98.0); Mean Platelet Volume 10.8 fL (9.4-12.3); Monocytes Absolute Auto 0.6 X10*3/uL (0.1-1.2); Monocytes Percent Auto 6.2 % (2-11); Neutrophils Absolute Auto 7.6 x10*3/uL (2.0-8.3); Neutrophils Percent Auto 82.7 % (45-73); Platelet Count 189 X10*3/uL (160-400); Red Blood Count 3.41 X10*6/uL (4.20-5.50); Red Cell Distribution Width 15.5 % (11.0-16.0); White Blood Count 9.2 X10*3/uL (4.8-10.8)
[2024-05-21 03:07] LABS: Venous Blood Gas Refer to POC result
[2024-05-21 03:08] LABS: VBG Base Excess 8.9 mmol/L; VBG HCO3 38 mmol/L (22-26); VBG pCO2 77 mmHg; VBG pO2 66 mmHg
--- NOTE | 2024-05-21 03:13 | MHC.EDTECH ---
EKG delay due to patient care.
--- NOTE | 2024-05-21 03:14 | ED_ITS ---
HPI - SOB/Dyspnea General Chief Complaint: Dyspnea Stated Complaint: SOB Time Seen by Provider: 05/21/24 02:27 Source: patient and old records reviewed Mode of arrival: EMS Limitations: no limitations History of Present Illness ED Provider: MELISSA AMAYA Narrative: 64 yo female with PMH of COPD on 3 to 4L NC and home CAPAP per EMS, leg edema, NSTEMI, PTSD, anxiety, PAF, ALEKSEY on Bipap, opioid use disorder who notes she was at home and c/o abrupt onset dyspnea with cough. She states she has been coughing more over the past couple of days. No chest pain, her legs are chronically swollen. EMS notes she was on her home CPAP with sats of 85%. She was then placed on EMS CPAP and her sats were 100%. Patient denies travel or sick contacts MD elicited complaint: shortness of breath Pertinent past history: COPD and congestive heart failure Onset (ago): hour(s) (2) Context: other Timing: improved Severity: moderate Exacerbating factors: lying flat, exertion and coughing Relieving factors: oxygen, rest, bronchodilators and upright position Known history of: COPD and congestive heart failure Associated symptoms: cough Treatment prior to arrival: oxygen and bronchodilator Related Data Home Medications ?Medication ?Instructions ?Recorded ?Confirmed theophylline 400 mg 400 mg PO DAILY 01/18/23 04/24/24 capsule,extended release 24 hr (Roque-24) vancomycin 1.5 gram/300 mL in 0.9 1.5 g IV Q24H 04/03/24 04/24/24 % sodium chloride intravenous clonazepam 0.5 mg tablet 0.5 mg PO DAILY PRN Anxiety 04/24/24 04/24/24 clonazepam 1 mg tablet 1 mg PO DAILY 04/24/24 04/24/24 fluticasone fur. 100 mcg-umeclid 1 ea inhalation DAILY 04/24/24 04/24/24 62.5 mcg-vilant 25 mcg inhalat.powder (Trelegy Ellipta) furosemide 20 mg tablet 40 mg PO DAILY 04/24/24 04/24/24 oxycodone 5 mg tablet 5 mg PO Q6H PRN Pain 04/24/24 04/24/24 Previous Rx's ?Medication ?Instructions ?Recorded empagliflozin 10 mg tablet 10 mg PO DAILY #30 tabs 05/01/24 (Jardiance) isosorbide mononitrate 30 mg 30 mg PO DAILY #30 tabs 05/01/24 tablet,extended release 24 hr spironolactone 25 mg tablet 25 mg PO DAILY #30 tabs 05/01/24 Allergies Allergy/AdvReac Type Severity Reaction Status Date / Time gabapentin Allergy Mild Anxiety Verified 05/21/24 02:35 morphine [MORPHINE] Allergy Unknown ANAPHALAXIS, Verified 05/21/24 02:35 anaphylaxis propofol [From Diprivan] Allergy Anaphylaxis Verified 05/21/24 02:35 Review of Systems 2 Review of Systems: Constitutional : No Fever, No Chills ENT/Mouth : No Hoarseness, No sore throat, No Rhinorrhea Eyes: No Redness, No Discharge, No Vision Changes Cardiovascular : No Chest Pain, positive SOB, positive Dyspnea on Exertion, No Edema Respiratory : positive Cough, pos Sputum, positive Wheezing, Gastrointestinal : No Nausea, No Vomiting, No Diarrhea, No abdominal Pain Genitourinary : No Dysuria, No Hematuria Musculoskeletal : No joint pain, No Myalgias Skin : No rash Neuro : No Weakness, No Numbness, No Headache Psych : No anxiety, depression All other systems reviewed and are negative [facility] Past Medical History Attestation statement: The following information was validated with the patient. Source: old records reviewed Medical History Enterococcus faecalis infection MSSA (methicillin susceptible Staphylococcus aureus) MRSA (methicillin resistant staph aureus) culture positive Encounter for management of wound VAC Chronic osteomyelitis Hypertension Iron deficiency anemia Open wound of lower extremity COPD (chronic obstructive pulmonary disease) Femur fracture Crohn's colitis Morbid obesity due to excess calories Closed tibia fracture Acute on chronic respiratory failure with hypoxia and hypercapnia Wound of left lower extremity Nonrheumatic mitral (valve) stenosis Acute on chronic right heart failure Paroxysmal atrial fibrillation Dyspnea ALEKSEY treated with BiPAP Hypoventilation associated with obesity Pickwickian syndrome Chronic hypercapnic respiratory failure Opioid use disorder Surgical History Hx of cholecystectomy History of open reduction and internal fixation (ORIF) procedure Status post open reduction and internal fixation (ORIF) of fracture Recent surgical procedure on lower extremity Family History Family History Other Adopted Social History Social History Household Members: Significant Other Household Members Other:: , Hoa. Daughter Carolyn, 21. Daughter's Boyfriend, 22. Neice, 21 Housing: House Do you presently have visiting nurse or other home services: Yes Alcohol intake: never Patient Tobacco Use Status: Former Tobacco user Years Smoked: 25 Smoked in Last 30 Days: No Second Hand Smoke Exposure: No Use of substances other than those prescribed or required for medical reasons: No Advance Directives: Yes Advance Directives on File: Yes Advance Directives Date on File: 12/16/20 Patient : No service: Yes Current occupational status: disabled Physical Exam 2 Vital Signs: Vital Signs: Last Vital Signs Temp 98.3 F 05/21/24 02:32 Pulse 73 05/21/24 04:57 Resp 20 05/21/24 04:57 BP 114/52 L 05/21/24 04:57 Pulse Ox 92 05/21/24 04:57 O2 Del Method BiPAP 05/21/24 04:57 O2 Flow Rate 3 05/21/24 03:42 Oxygen Flow Rate 3 05/21/24 02:32 BMI result Body Mass Index 49.4 Appearance: Alert. Oriented X3. No acute distress. Eyes: Pupils equal, round and reactive to light. ENT: Pharynx normal. Neck: Normal inspection. Neck supple. CVS: Normal heart rate and rhythm. Pulses normal. Respiratory: No respiratory distress. Breath sounds diminished throughout Abdomen: Soft and non-tender. Skin: Skin warm and dry. pale skin color. Normal skin turgor. Extremities: 2+ pitting lower ext edema Neuro: Oriented X 3. No motor deficit. No sensory deficit. Course Course Course Narrative: patient on home settings of nighttime bipap Reevaluation(s) Reevaluation #1: repeat VBG stable Medications Administered Generic Name Dose Route Start Last Admin Trade Name Freq PRN Reason Stop Dose Admin Azithromycin 500 mg/ Sodium 250 mls @ 125 mls/hr 05/21/24 03:20 05/21/24 03:36 Chloride IV 05/21/24 05:19 125 mls/hr ONCE ONE Administration Discontinued Medications Generic Name Dose Route Start Last Admin Trade Name Freq PRN Reason Stop Dose Admin Furosemide 40 mg 05/21/24 04:40 05/21/24 04:57 Furosemide 40 Mg/4 Ml Vial IVPUSH 05/21/24 04:41 40 mg STAT STA Administration Protocol Methylprednisolone Sodium Succinate 60 mg 05/21/24 02:30 05/21/24 02:36 Methylprednisolone Sod Succ 125 Mg/2 Ml Vial IVPUSH 05/21/24 02:31 60 mg ONCE ONE Administration Sodium Zirconium Cyclosilicate 5 gm 05/21/24 03:23 05/21/24 03:34 Sodium Zirconium Cyclosilicate 5 Gm Powd.Pack PO 05/21/24 03:24 5 gm ONCE ONE Administration Medical Decision Making Medical Decision Making MDM Narrative: 64 yo female with PMH of COPD on 3 to 4L NC and home CAPAP per EMS, leg edema, NSTEMI, PTSD, anxiety, PAF, ALEKSEY on Bipap, opioid use disorder here with c/o recent difficulty breathing and cough then tonight acutely worse - no sick contacts, no travel. She was found hypoxic by EMS at this time will need basic labs, EKG, vbg, NIPPV vs supplemental NC pending her VBG though she is not in distress, lactic acid cultures, IV steroids, +/- IV lasix. Anticipate admission for presumed COPD with chronic resp failure and CHF Differential Diagnosis Differential Diagnoses: The differential diagnosis associated with the presentation includes CHF, COPD, viral syndrome, chronic resp failure Admission/Observation Consideration of admission/observation: Escalation of care including admission/observation considered given VERN will need admission BNP normal unclear if this is cardiorenal vs dehydration Consult Healthcare Provider Management of the patient was discussed with: Hospitalist (will admit) Lab Data [facility] Lab Attestation statement: I reviewed the patient's lab results. 05/21/24 02:50 05/21/24 02:50 Labs: Lab Results 05/21/24 05/21/24 05/21/24 Range/Units 02:50 03:03 05:04 WBC 9.2 (4.8-10.8) X10*3/uL RBC 3.41 L (4.20-5.50) X10*6/uL Hgb 9.0 L (12.0-16.0) g/dl Hct 31.1 L (37.0-47.0) % MCV 91.2 (80.0-98.0) fL MCH 26.4 L (27.0-33.0) pg MCHC 28.9 L (31.0-35.0) g/dl RDW 15.5 (11.0-16.0) % Plt Count 189 (160-400) X10*3/uL MPV 10.8 (9.4-12.3) fL Immature Gran % (Auto) 0.3 (0.0-0.4) % Neut % (Auto) 82.7 H (45-73) % Lymph % (Auto) 7.9 L (20-40) % Taney % (Auto) 6.2 (2-11) % Eos % (Auto) 2.6 (0-4) % Baso % (Auto) 0.3 (0-2) % Lymph # (Auto) 0.7 L (1.2-4.9) X10*3/uL Taney # (Auto) 0.6 (0.1-1.2) X10*3/uL Eos # (Auto) 0.2 (0.0-0.4) X10*3/uL Baso # (Auto) 0.0 (0.0-0.2) X10*3/uL Abs Immat Gran (auto) 0.03 (0.00-0.03) X10*3/uL Absolute Neuts (auto) 7.6 (2.0-8.3) x10*3/uL Absolute Nucleated RBC 0.000 (0.0-0.012) X10*3/uL Nucleated RBC % (auto) 0.0 (0.0-0.2) /100WBC VBG pH 7.30 L 7.39 (7.32-7.43) VBG pCO2 77 63 mmHg VBG pO2 66 50 mmHg VBG HCO3 38 H 39 H (22-26) mmol/L VBG O2 Saturation 88.0 77.0 % VBG Base Excess 8.9 11.7 mmol/L Sodium 146 H (135-145) mmol/L Potassium 5.9 H D (3.3-5.1) mmol/L Chloride 104 (96-108) mmol/L Carbon Dioxide 35 H (22-29) mmol/L Anion Gap 13 (12-20) BUN 52 H (9-16) mg/dL Creatinine 2.36 H (0.5-1.4) mg/dL Estim Creat Clear Calc 30.4 Estimated GFR 21 Random Glucose 140 H (60-115) mg/dL Lactic Acid 0.5 (0.5-2.0) mmol/L Calcium 9.3 (8.4-10.2) mg/dL Magnesium 2.1 (1.6-2.6) mg/dL Total Bilirubin 0.2 (0.0-1.0) mg/dL AST 14 (5-31) U/L ALT 6 (0-31) U/L Alkaline Phosphatase 94 (39-117) U/L Troponin I High Sens 4.0 (<3.5-17.0) ng/L B-Natriuretic Peptide 109 H (<100) pg/mL Total Protein 7.0 (6.5-8.0) g/dL Albumin 3.8 (3.5-5.0) g/dL Lipase 11 (8-78) U/L Influenza Type A (PCR) NEGATIVE (Negative) Influenza Type B (PCR) NEGATIVE (Negative) RSV RNA Qual (PCR) NEGATIVE (Negative) SARS-CoV-2 RNA (RT-PCR) NEGATIVE (Negative) Independent Interpretation I performed an independent interpretation of an: EKG and Plain X-Ray (no consolidation) Interpretation: Rate: 81 Rhythm: NSR Edgar: normal Normal P waves. Normal RFEDO. Normal QRS complex. ST T wave : no ROB, inverted t waves V1 qTC: 408 prior studies: no acute ischemia The study has been interpreted contemporaneously by me. . Radiology Impression Discussion of test interpretation with radiology: I have reviewed the radiologist's reading. Independent Historian Clinical information obtained from an independent historian. History obtained from or confirmed by: EMS External Record Review External record reviewed: Inpatient record Critical Care Time Critical Care Time Critical Care Time: Yes Total Critical Care Time: 35 Attestation: review of records, night time bipap , admission I attest to this time spent taking care of the patient Discharge Plan Discharge Clinical Impression: COPD (chronic obstructive pulmonary disease), VERN (acute kidney injury), CHF (congestive heart failure) Patient Disposition: Admitted As Inpatient Print Language: Nauruan
[2024-05-21 03:19] LABS: Lactic Acid 0.5 mmol/L (0.5-2.0)
[2024-05-21 03:22] LABS: Alanine Aminotransferase 6 U/L (0-31); Albumin Level 3.8 g/dL (3.5-5.0); Alkaline Phosphatase 94 U/L (39-117); Anion Gap 13 (12-20); Aspartate Amino Transferase 14 U/L (5-31); Bilirubin Total 0.2 mg/dL (0.0-1.0); Blood Urea Nitrogen 52 mg/dL (9-16); Calcium 9.3 mg/dL (8.4-10.2); Carbon Dioxide 35 mmol/L (22-29); Chloride 104 mmol/L (96-108); Creatinine Clr Calc Pharmacy 30.4; Estimated Glomerular Filt Rate 21; Glucose Random 140 mg/dL (60-115); Lipase 11 U/L (8-78); Magnesium 2.1 mg/dL (1.6-2.6); Potassium 5.9 mmol/L (3.3-5.1); Sodium 146 mmol/L (135-145)
[2024-05-21] MEDS: Sodium Zirconium Cyclosilicate 5 GM POWD.PACK PO (03:34)
[2024-05-21] MEDS: Azithromycin 500 MG in 0.9 % Sodium Chloride 250 ML 125 MG IV (03:36)
[2024-05-21 03:39] LABS: Influenza A PCR NEGATIVE (Negative); Influenza B PCR NEGATIVE (Negative); Resp Syncy Virus RNA Qual PCR NEGATIVE (Negative); SARS COV2 PCR INHOUSE NEGATIVE (Negative)
[2024-05-21 03:42] LABS: B Type Natriuretic Peptide 109 pg/mL (<100)
[2024-05-21] MEDS: Furosemide 40 MG/4 ML VIAL IVPUSH ×2 (04:57→08:53)
[2024-05-21 05:08] LABS: VBG Base Excess 11.7 mmol/L; VBG HCO3 39 mmol/L (22-26); VBG pCO2 63 mmHg; VBG pH 7.39 (7.32-7.43); VBG pO2 50 mmHg
[2024-05-21 05:11] LABS: Venous Blood Gas Refer to POC result
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
--- NOTE | 2024-05-21 05:44 | P.HPHOSP_ITS ---
History of Present Illness Date of Service: 05/21/24 Chief Complaint: Dyspnea This is a 64-year-old female with pertinent history of diastolic congestive heart failure, ALEKSEY/OHS on nocturnal BiPAP, chronic hypoxic respiratory failure due to COPD, morbid obesity, hypertension, mood disorder who presents to the emergency department for evaluation of dyspnea. Patient states she had sudden onset of dyspnea when she was laying down. Minimal nonproductive cough. The dyspnea is better when she sits up and worse when she is lying down. Patient was hypoxic on her home NIV. Also had associated wheezing. No fever, chills, chest pain, palpitations, abdominal pain, changes in urinary or bowel habits. In the emergency department, patient with respiratory acidosis which resolved with BiPAP. Found to have VERN with creatinine 2.36 Review of Systems 2 Cardiovascular: Cardiovascular: Reports dyspnea on exertion and Reports orthopnea Respiratory: Respiratory: Reports dyspnea on exertion Gastrointestinal: Gastrointestinal: Reports no additional gastrointestinal complaints Genitourinary: Genitourinary: Reports no additional female genitourinary complaints FOR[facility]LY [facility], [facility] Medical History Enterococcus faecalis infection MSSA (methicillin susceptible Staphylococcus aureus) MRSA (methicillin resistant staph aureus) culture positive Encounter for management of wound VAC Chronic osteomyelitis Hypertension Iron deficiency anemia Open wound of lower extremity COPD (chronic obstructive pulmonary disease) Femur fracture Crohn's colitis Morbid obesity due to excess calories Closed tibia fracture Acute on chronic respiratory failure with hypoxia and hypercapnia Wound of left lower extremity Nonrheumatic mitral (valve) stenosis Acute on chronic right heart failure Paroxysmal atrial fibrillation Dyspnea ALEKSEY treated with BiPAP Hypoventilation associated with obesity Pickwickian syndrome Chronic hypercapnic respiratory failure Opioid use disorder Family History Other Adopted Surgical History Hx of cholecystectomy History of open reduction and internal fixation (ORIF) procedure Status post open reduction and internal fixation (ORIF) of fracture Recent surgical procedure on lower extremity Social History Household Members: Significant Other Household Members Other:: , Hoa. Daughter Carolyn, 21. Daughter's Boyfriend, 22. Neice, 21 Housing: House Do you presently have visiting nurse or other home services: Yes Alcohol intake: never Patient Tobacco Use Status: Former Tobacco user Years Smoked: 25 Smoked in Last 30 Days: No Second Hand Smoke Exposure: No Use of substances other than those prescribed or required for medical reasons: No Advance Directives: Yes Advance Directives on File: Yes Advance Directives Date on File: 12/16/20 Patient : No service: Yes Current occupational status: disabled Meds Allergies Allergy/AdvReac Type Severity Reaction Status Date / Time gabapentin Allergy Mild Anxiety Verified 05/21/24 02:35 morphine [MORPHINE] Allergy Unknown ANAPHALAXIS, Verified 05/21/24 02:35 anaphylaxis propofol [From Diprivan] Allergy Anaphylaxis Verified 05/21/24 02:35 Home Medications ?Medication ?Instructions ?Recorded ?Confirmed ?Last Taken ?Type theophylline 400 mg 400 mg PO DAILY 01/18/23 04/24/24 04/24/24 History capsule,extended release 24 hr (Roque-24) vancomycin 1.5 gram/300 mL in 0.9 1.5 g IV Q24H 04/03/24 04/24/24 04/23/24 History % sodium chloride intravenous clonazepam 0.5 mg tablet 0.5 mg PO DAILY PRN Anxiety 04/24/24 04/24/24 Unknown History clonazepam 1 mg tablet 1 mg PO DAILY 04/24/24 04/24/24 Unknown History fluticasone fur. 100 mcg-umeclid 1 ea inhalation DAILY 04/24/24 04/24/24 04/24/24 History 62.5 mcg-vilant 25 mcg inhalat.powder (Trelegy Ellipta) furosemide 20 mg tablet 40 mg PO DAILY 04/24/24 04/24/24 04/24/24 History oxycodone 5 mg tablet 5 mg PO Q6H PRN Pain 04/24/24 04/24/24 Unknown History Physical Exam 2 Vital Signs and Narrative: Vital Signs: Last Vital Signs Temp 98.3 F 05/21/24 02:32 Pulse 73 05/21/24 04:57 Resp 20 05/21/24 04:57 BP 114/52 L 05/21/24 04:57 Pulse Ox 92 05/21/24 04:57 O2 Del Method BiPAP 05/21/24 04:57 O2 Flow Rate 3 05/21/24 03:42 Oxygen Flow Rate 3 05/21/24 02:32 BMI result Body Mass Index 49.4 Middle-aged female lying in bed in mild distress on BiPAP Neck supple, no JVD Regular rate and rhythm, S1-S2 heard Diminished breath sounds Abdomen soft nontender, no guarding, no rigidity Patient is awake, alert and oriented to self, place, time and person ; no focal motor deficit Psych: Normal mood Bilateral leg edema with venous stasis changes in pitting edema Results Labs 05/21/24 02:50 05/21/24 02:50 Labs: Laboratory Results - last 24 hr 05/21/24 05/21/24 05/21/24 02:50 03:03 05:04 MCV 91.2 MCH 26.4 L MCHC 28.9 L RDW 15.5 Plt Count 189 MPV 10.8 Immature Gran % (Auto) 0.3 Neut % (Auto) 82.7 H Lymph % (Auto) 7.9 L [place] % (Auto) 6.2 Eos % (Auto) 2.6 Baso % (Auto) 0.3 Lymph # (Auto) 0.7 L [place] # (Auto) 0.6 Eos # (Auto) 0.2 Baso # (Auto) 0.0 Abs Immat Gran (auto) 0.03 Absolute Neuts (auto) 7.6 Absolute Nucleated RBC 0.000 Nucleated RBC % (auto) 0.0 VBG pH 7.30 L 7.39 VBG pCO2 77 63 VBG pO2 66 50 VBG HCO3 38 H 39 H VBG O2 Saturation 88.0 77.0 VBG Base Excess 8.9 11.7 Anion Gap 13 Estim Creat Clear Calc 30.4 Estimated GFR 21 Random Glucose 140 H Lactic Acid 0.5 Calcium 9.3 Magnesium 2.1 Total Bilirubin 0.2 AST 14 ALT 6 Alkaline Phosphatase 94 Troponin I High Sens 4.0 B-Natriuretic Peptide 109 H Total Protein 7.0 Albumin 3.8 Lipase 11 Influenza Type A (PCR) NEGATIVE Influenza Type B (PCR) NEGATIVE RSV RNA Qual (PCR) NEGATIVE SARS-CoV-2 RNA (RT-PCR) NEGATIVE Imaging Radiologist's Impressions: Impressions Chest X-Ray 05/21/24 03:15 IMPRESSION: *Findings suspicious for pulmonary vascular congestion. *Cardiomegaly unchanged compared with 04/24/2024. *Possible trace left pleural effusion. Electronically signed by: Rufino Infante MD 05/21/2024 04:15 AM EDT RP Assessment and Plan (1) CHF (congestive heart failure): Qualifiers: Heart failure chronicity: acute on chronic Heart failure type: u nspecified Qualified Code(s): I50.9 - Heart failure, unspecified Status: Acute (2) VERN (acute kidney injury): Status: Acute (3) COPD (chronic obstructive pulmonary disease): Qualifiers: COPD type: COPD with acute exacerbation Qualified Code(s): J44.1 - Chronic obstructive pulmonary disease with (acute) exacerbation Status: Acute Plan This is a 64-year-old female with pertinent history of diastolic congestive heart failure, ALEKSEY/OHS on nocturnal BiPAP, chronic hypoxic respiratory failure due to COPD, morbid obesity, hypertension, mood disorder who presents to the emergency department for evaluation of dyspnea. #. Acute on chronic hypoxic/hypercarbic respiratory failure due to acute exacerbation of COPD and acute on chronic congestive heart failure with preserved EF: Will admit patient with IV diuresis. Continue supplemental oxygen and wean as tolerated. On nocturnal BiPAP. Patient on spironolactone and empagliflozin. Initiating systemic steroids. Scheduled and p.r.n. DuoNebs. Continue home inhaler #. Acute kidney injury, cardiorenal in the setting of above: Monitor creatinine urine output with diuresis #. Chronic normocytic anemia: Likely anemia of chronic disease #. Hypertension: Continue home antihypertensives #. Chronic pain: On p.r.n. oxycodone #. Morbid obesity: Counseled regarding diet #. Mood disorder: Continue home mood stabilizers Med rec pending DVT prophylaxis: Lovenox Full code Admit as inpatient and will require two night minimum hospital stay for respiratory failure, VERN (as above), which is not possible in a lesser acute setting. Quality Stroke Does the patient have a stroke diagnosis?: No VTE Prior VTE?: No VTE Risk Level:: Medical - moderate - high VTE Device Contraindication: Treatment Not Indicated VTE Drug Contraindication: N/A - Med Ordered
--- OUTSIDE RECORDS SUMMARY | 2024-05-21 05:49 | XMS_ITS | Continuity of Care Document ---
Author Organization [facility] Address [address] [place] [address]- Care Team Providers Care Food Writer Name Role Phone Yenny ROSE MD, Chirag Olivo Primary Care Physici an [place] [facility] [place]): [place] - 05/20/24 [facility] [address] [place] [id number] Attending Physician: Lilian ORDAZ, Hugh Mondragon Admitting Physician: Lilian ORDAZ, Hugh Mondragon Referring Physician: Annemarie Alfred MD Allergies, Adverse Reactions, Alerts Substance Reaction Severity Status morphine anaphylaxis Severe Active propofol anaphylaxis Active gabapentin tardive dyskenesia Active Tomatoes mouth itch Active Immunizations Given and Recorded Vaccine Date Status Refusal Reason SARS-CoV-2(COVID-19)mRNA-LNP vac(ott298) 09/08/23 Recorded influenza virus vaccine, inactivated 05/05/22 [...] 03/21/24 16:28:00 EDT, Route to Pharmacy Electronically, [facility], Partial fill upon patient request if the prescription is for a schedule... Start Date: 03/21/24 Status: Ordered atorvastatin 80 mg oral tablet 1 tablet = 80 mg, By Mouth, Daily at bedtime, # 30 tablet, 0 Refills, Maintenance, 05/14/22 16:09:00 EDT, Tablet, [facility], Partial fill upon patient [...] 0 Refills, Maintenance, 03/21/24 16:26:00 EDT, Capsule, [facility], Partial fill upon patient [...] 0 Refills, Soft Stop, 09/01/23 15:31:00 EST, [facility]/pharmacy #[id number], Partial fill upon patient... Start Date: 09/01/23 Status: Ordered omeprazole 20 mg oral delayed release tablet 1 tablet = 20 mg, By Mouth, Daily, # 30 tablet, 0 Refills, Maintenance, 04/17/22 18:01:00 EDT, CR Tablet, [facility]/pharmacy #[id number], Partial fill upon patient [...] Team Personnel Name: Thomas Lomax RN Position: [facility] ED RN W/OE and Tasks Member Role: Primary Care Nurse Name: Mandy Hightower RN Position: [facility] RN Member Role: Primary Care Nurse Name: Akosua Moses RN Position: [facility] RN Member Role: Primary Care Nurse Name: Michelle Zambrano RN Position: [facility] RN Member Role: Primary Care Nurse Name: Stacie Ortiz RN Position: [facility] RN Member Role: Primary Care Nurse Name: Nicole Alvarado RN Position: [facility] AMB Nurse Member Role: Primary Care Nurse Name: Saranya Muir RN Position: [facility] RN Member Role: Primary Care Nurse Name: David Gil RN Position: [facility] RN Member Role: Primary Care Nurse Name: Chirag Ramon JR, MD Position: Reference Physician Member Role: PCP Address: Address: [address] [place] [address]- Name: Pau Olmedo RN Position: [facility] RN Member Role: Primary Care Nurse Name: Rodrigo Noel RN Position: [facility] RN Member Role: Primary Care Nurse Name: Ximena Constantino RN Position: [facility] SN RN Member Role: Primary Care Nurse Name: Kylie Wilde RN Position: [facility] RN Member Role: Primary Care Nurse Name: Domenica Ramirez RN Position: [facility] RN Member Role: Primary Care Nurse Name: Talita Roberts RN Position: [facility] RN Member Role: Primary Care Nurse Name: Klarissa Ko RN Position: [facility] RN Member Role: Primary Care Nurse Name: Ivette Osorio RN Position: [facility] RN Member Role: Primary Care Nurse Name: Alma Lott RN Position: [facility] SN RN Member Role: Primary Care Nurse Name: Elise Quick NP Position: [facility] Associate Professional Member Role: Lifetime Consulting Provider Address: Address: [address] [place], [place] [address] [place] [address]- Name: Eulalio Prado MD Position: [facility] Renal MD Member Role: Lifetime Consulting Physician Address: Address: [address] [place], [place] [address] [facility] [address] Name: Caroline Shirley RN Position: [facility] RN Member Role: Primary Care Nurse Name: Cori Landeros RN Position: [facility] RN Member Role: Primary Care Nurse Name: Chelle Ricardo RN Position: [facility] RN Member Role: Primary Care Nurse Name: Wolfgang Siddiqui RN Position: [facility] RN Member Role: Primary Care Nurse Name: Sigrid London RN Position: [facility] RN Member Role: Primary Care Nurse Name: Kelsi Kim RN Position: [facility] RN Member Role: Primary Care Nurse Name: Mireya Catherine RN Position: [facility] RN Member Role: Primary Care Nurse Name: Lizet Hilliard RN Position: [facility] RN Member Role: Primary Care Nurse Name: Magalie Grande RN Position: [facility] RN Member Role: Primary Care Nurse Name: Josefina Leonard RN Position: [facility] SN RN Member Role: Primary Care Nurse Name: Prem Barrera MD Position: [facility] Renal MD Member Role: Lifetime Consulting Physician Address: Address: [address] [place] [address] [address] [facility] [place] [address]- Name: Alma Reyes RN Position: [facility] RN Member Role: Primary Care Nurse Name: Nayely Mercado RN Position: [facility] RN Member Role: Primary Care Nurse Name: Lata Hernandez RN Position: [facility] SN RN Member Role: Primary Care Nurse Name: Atul Molina MD Position: [facility] Renal MD Member Role: Lifetime Consulting Physician Address: Address: [address] [facility] [place] [address]- Name: Gema Jean Baptiste RN Position: [facility] RN Member Role: Primary Care Nurse Name: Esther Miller RN Position: [facility] RN Member Role: Primary Care Nurse Name: Siena Coleman RN Position: [facility] RN Member Role: Primary Care Nurse Name: Julia Alex RN Position: [facility] RN Member Role: Primary Care Nurse Name: Brandi Martinez RN Position: [facility] RN Member Role: Primary Care Nurse Name: Joann Moore RN Position: [facility] RN Member Role: Primary Care Nurse Name: Ramya Cook RN Position: [facility] Practice Clinician Member Role: Primary Care Nurse Care Team Related Persons Name: APRIL QUEZADA Name: HARVEY CASAS Address: [address] [address]
--- OUTSIDE RECORDS SUMMARY | 2024-05-21 05:52 | XMS_ITS ---
Author Organization [facility] [place] Address [address] [place] [address] Care Team Providers Care Water And Gas Helper Name Role Phone Gal Solorio MD Primary Care Provider Unavail able Ritchie Werner Unavailable [phone] ALLERGIES No Known Allergies REASON FOR VISIT [...] Risk SNOMED Code Notes Problem Atherosclerosis of [place] artery of both lower extremities, with unspecified presence of clinical manifestation (I70.203) Active confirmed Atherosclerosis of [place] arteries of the extremities ([id number]) VITAL SIGNS Height 5ft 1in in 03/04/2023 Weight 270 lbs 03/04/2023 BMI 51.01 kg/m2 03/04/2023 PROCEDURES Procedure Date Ordered Date Performed Result Body Sit e 88987-[id number] NAIL, 1-5 03/04/2023 N/A 75253-ZUVA SKIN LESIONS, 2 TO 4 03/04/2023 N/A [id number] DYSTROPHIC NAILS ANY # 03/04/2023 N/A Encounters Encounter Location Date Provider Diagnosis [facility] [address] [address] 03/04/2023 Ritchie Werner Atherosclerosis of [place] artery of both lower extremities, with unspecified [...] Notes Treatment Clinical Notes 03/04/2023 Atherosclerosis of [place] artery of both lower extremities, with unspecified [...] TREATMENT Pending Test Test Name Order Date [id number] NAIL, 1-5 03/04/2023 77861-XYBD SKIN LESIONS, 2 TO 4 03/04/20 23 [id number] DYSTROPHIC NAILS ANY # Next Appt Details Follow Up: prn, Reason: Procedure Notes * Category Sub-Category Detail Notes Keratoma Treatment Parring or Cutting o f Benign Hyperkeratotic Lesion(s) 55145 ( 2-4 Lesions ) - The Benign [...] as necessary. Patient chooses, no pharmaceutical tx (61483) Nail Reduction Nail Reduction Trimming of dyst rophic nails performed to reduce/remove overall nail length and girth, by manual and electrical means with use of a nail nipper and/or dremel, to more viable healthy nail plate or bed tissue 6-10 (Q1942-Q6) Progress Notes * Examination Category Sub-Category Detail [...]
--- OUTSIDE RECORDS SUMMARY | 2024-05-21 05:52 | XMS_ITS ---
Author Organization 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
--- OUTSIDE RECORDS SUMMARY | 2024-05-21 05:52 | XMS_ITS | Patient Health Record ---
Author Organization [facility] [place] Address [address] [place] [address] Care Team Providers Care Software Engineer Developer Name Role Phone Gal Solorio MD Primary Care Provider Unavail able Ritchie Werner Unavailable [phone] ALLERGIES No Known Allergies REASON FOR REFERRAL [...] Risk SNOMED Code Notes Problem Atherosclerosis of [place] artery of both lower extremities, with unspecified presence of clinical manifestation (I70.203) Active confirmed Atherosclerosis of [place] arteries of the extremities ([id number]) PLAN OF TREATMENT Pending Test Test Name Order Date [id number] NAIL, 1-5 03/04/2023 60168-XVYM SKIN LESIONS, 2 TO 4 03/04/20 23 [id number] DYSTROPHIC NAILS ANY # Insurance Providers Payer Name Payer Address Payer Phone Subscriber Number Group Number Insured Name Patient Relationship to Insured Coverage Start Date Coverage End Date Medicare [employer] [address] [place] [address] [id number] Sample, Brianne Self - patient is the [...]
--- OUTSIDE RECORDS SUMMARY | 2024-05-21 05:52 | XMS_ITS ---
Author Organization [facility] Address [address] [facility] [place] [address] Care Team Providers Care Insolvency Consultant Name Role Phone Gal Solorio MD Primary Care Provider Unavail able Ritchie Werner Unavailable [phone] Rowan Nettles Unavailable [phone] Encounters Encounter Location Date Provider Diagnosis [facility] [place] [address] [facility] [place] [address] 02/24/2023 Rowan Nettles PLAN OF TREATMENT No Information
[2024-05-21] MEDS: Albuterol/Iprat 2.5/0.5MG 3 ML AMPUL.NEB INHALE ×4 (07:37→19:11)
[2024-05-21] MEDS: oxyCODONE HCl Immed Release 5 MG TABLET PO (08:52)
[2024-05-21] MEDS: Enoxaparin Sodium 40 MG/0.4 ML SYRINGE SUBCUT (08:53)
[2024-05-21] MEDS: predniSONE 20 MG TABLET 40 MG PO (08:53)
[2024-05-21] MEDS: 0.9 % Sodium Chloride Flush 3 ML SYRINGE IVFLUSH ×2 (08:54→16:01)
--- NOTE | 2024-05-21 11:14 | MHC.CM.PN ---
CM MET WITH PT AND AT BEDSIDE PT LIVES WITH HER AND DAUGHTER SHE IS ACTIVE WITH [facility] AND A [facility] [employer] SHE HAS A WALKER, O2 AND A CPAP HCP ON FILE AND VERIFIED PCP: ROMANA CASTILLO AT THE [facility] IMM DELIVERED DCP: HOME RESUME [facility] AND [facility] SERVICES TO TRANSPORT
--- NOTE | 2024-05-21 12:19 | PM.EVENT ---
Event Note Date of Service: 05/21/24 Event Note: This is a 64-year-old female with pertinent history of diastolic congestive heart failure, ALEKSEY/OHS on nocturnal BiPAP, chronic hypoxic respiratory failure due to COPD, morbid obesity, hypertension, mood disorder who presents to the emergency department for evaluation of dyspnea. Acute on chronic hypoxic/hypercarbic respiratory failure due to acute exacerbation of COPD and acute on chronic congestive heart failure with preserved EF IV diuresis. Continue supplemental oxygen and wean as tolerated. On nocturnal BiPAP. Patient on spironolactone and empagliflozin. Initiating systemic steroids. Scheduled and p.r.n. DuoNebs. Continue home inhaler Acute kidney injury cardiorenal in the setting of above Monitor creatinine urine output with diuresis hyperkalemia lokelma follow BMP Chronic normocytic anemia Likely anemia of chronic disease Hypertension Continue home antihypertensives Chronic pain On p.r.n. oxycodone Super Morbid obesity. BMI 50.5 Counseled regarding diet Mood disorder Continue home mood stabilizers DVT prophylaxis: [facility] Attending Dr. Booth Full code Time Spent With Patient Time: Total time managing care of this patient today ____ minutes.
[2024-05-21 12:41] LABS: Anion Gap 15 (12-20); Blood Urea Nitrogen 49 mg/dL (9-16); Calcium 9.7 mg/dL (8.4-10.2); Carbon Dioxide 34 mmol/L (22-29); Chloride 98 mmol/L (96-108); Estimated Glomerular Filt Rate 22; Glucose Random 320 mg/dL (60-115); Potassium 5.4 mmol/L (3.3-5.1); Sodium 142 mmol/L (135-145)
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
[2024-05-21 15:59] LABS: Glucose, Whole Blood 234 mg/dL (60-115)
[2024-05-21] MEDS: Sodium Zirconium Cyclosilicate 10 GM POWD.PACK PO (16:00)
[2024-05-21] MEDS: Insulin Lispro 100 UNIT/ML 3 ML VIAL SUBCUT (16:00)
[2024-05-21] MEDS: clonazePAM 0.5 MG TABLET PO (16:00)
[2024-05-21 19:56] LABS: Glucose, Whole Blood 147 mg/dL (60-115)
[2024-05-22] VITALS (10 sets, daily range): BP systolic 93–155; BP diastolic 59–68; PULSE 60–94; RESP 17–21; TEMP 36–36.8; O2SAT 93–99
[2024-05-22] MEDS: 0.9 % Sodium Chloride Flush 3 ML SYRINGE IVFLUSH ×4 (00:49→23:59)
[2024-05-22] MEDS: Temazepam 15 MG CAPSULE 30 MG PO ×2 (01:13→23:59)
[2024-05-22 05:55] LABS: MANUAL DIFF FLAG NO
[2024-05-22] MEDS: oxyCODONE HCl Immed Release 5 MG TABLET PO (06:03)
[2024-05-22 06:04] LABS: Basophils Percent Auto 0.2 % (0-2); Hematocrit 29.3 % (37.0-47.0); Hemoglobin 8.6 g/dl (12.0-16.0); Imm Gran Abs Auto 0.04 X10*3/uL (0.00-0.03); Imm Gran Pct Auto 0.5 % (0.0-0.4); Lymphocytes Absolute Auto 0.7 X10*3/uL (1.2-4.9); Lymphocytes Percent Auto 8.1 % (20-40); Mean Corpuscular HGB Conc 29.4 g/dl (31.0-35.0); Mean Corpuscular Hemoglobin 26.5 pg (27.0-33.0); Mean Corpuscular Volume 90.2 fL (80.0-98.0); Mean Platelet Volume 11.3 fL (9.4-12.3); Monocytes Absolute Auto 0.7 X10*3/uL (0.1-1.2); Monocytes Percent Auto 7.9 % (2-11); Neutrophils Percent Auto 83.3 % (45-73); Platelet Count 156 X10*3/uL (160-400); Red Blood Count 3.25 X10*6/uL (4.20-5.50); Red Cell Distribution Width 15.1 % (11.0-16.0); White Blood Count 8.4 X10*3/uL (4.8-10.8)
[2024-05-22 06:18] LABS: Anion Gap 10 (12-20); Blood Urea Nitrogen 46 mg/dL (9-16); Calcium 8.7 mg/dL (8.4-10.2); Carbon Dioxide 36 mmol/L (22-29); Chloride 100 mmol/L (96-108); Creatinine Clr Calc Pharmacy 49.2; Estimated Glomerular Filt Rate 36; Glucose Random 143 mg/dL (60-115); Potassium 5.3 mmol/L (3.3-5.1); Sodium 141 mmol/L (135-145)
[2024-05-22] MEDS: Fluticasone/Umeclidinium/Vilanterol 100/62.5/25 BLST.W.DEV 1 PUFF INHALE (07:25)
[2024-05-22] MEDS: Albuterol/Iprat 2.5/0.5MG 3 ML AMPUL.NEB INHALE ×4 (07:25→18:57)
[2024-05-22 07:41] LABS: Glucose, Whole Blood 122 mg/dL (60-115)
[2024-05-22 08:46] LABS: Appearance Urine Clear; Color Urine Yellow; Glucose Urine UA Negative (Negative); Leukocyte Esterase Urine Small (1+) (Negative); Nitrite Urine Negative (Negative); PH 6.5 (5.0-9.0); Specific Gravity - Urine 1.015 (1.005-1.025); UMIC TRIGGER UACC YES; Urine Blood Negative (Negative); Urine Ketones Negative (Negative); Urine Protein Trace mg/dL (Neg-Trace)
[2024-05-22 08:56] LABS: Bacteria Urine None Seen (None Seen); Hyaline Casts Urine 0-2 /LPF (0-2); RBC Urine 0-2 /HPF (0-2); Squamous Epithelial Cell Urine 0-2 /HPF (0-2); UACC Culture Trigger YES; WBC Urine 0-5 /HPF (0-5)
[2024-05-22] MEDS: predniSONE 20 MG TABLET 40 MG PO (09:23)
[2024-05-22] MEDS: Cholecalciferol (Vitamin D3) 25 MCG TABLET 50 MCG PO (09:23)
[2024-05-22] MEDS: Isosorbide Mononitrate 30 MG TAB.ER.24H PO (09:23)
[2024-05-22] MEDS: dilTIAZem HCL CD 240 MG CAP.ER.DEG PO (09:23)
[2024-05-22] MEDS: Furosemide 40 MG/4 ML VIAL IVPUSH (09:23)
[2024-05-22] MEDS: clonazePAM 0.5 MG TABLET PO ×2 (09:23→13:02)
[2024-05-22] MEDS: Sodium Zirconium Cyclosilicate 10 GM POWD.PACK PO (09:23)
[2024-05-22] MEDS: Enoxaparin Sodium 40 MG/0.4 ML SYRINGE SUBCUT (09:24)
[2024-05-22] MEDS: Omeprazole 20 MG CAPSULE.DR PO (09:24)
--- NOTE | 2024-05-22 10:12 | P.PNIM_ITS ---
Subjective Subjective Date of Service: 05/22/24 Review of Systems Follow up hypernatremia, VERN Feeling better today sitting up in a chair Physical Exam 2 Vital Signs: Vital Signs: Last Vital Signs Temp 96.9 F 05/22/24 07:23 Pulse 60 05/22/24 08:53 Resp 18 05/22/24 07:23 BP 154/68 H 05/22/24 08:53 Pulse Ox 93 05/22/24 08:53 O2 Del Method Nasal Cannula 05/22/24 07:23 O2 Flow Rate 4 05/22/24 07:23 Oxygen Flow Rate 3 05/21/24 02:32 BMI result Body Mass Index 50.5 Appearing in no acute distress lung sounds diminished heart regular rate rhythm, clear S1, S2 positive bowel sounds, abdomen is soft, nontender neuro patient is alert x3, no focal deficits Objective Data Active Medications Acetaminophen (Acetaminophen 325 Mg Tablet) 650 mg PO Q6H PRN PRN Reason: Pain, Mild (Pain Scale 1-3), fever or headache Albuterol/Ipratropium (Albuterol/Iprat 2.5/0.5mg 3 Ml Ampul.Neb) 3 ml INHALE Q4H PRN PRN Reason: Wheezing Albuterol/Ipratropium (Albuterol/Iprat 2.5/0.5mg 3 Ml Ampul.Neb) 3 ml INHALE RQ4H WHILE AWAKE [facility] Last Admin: 05/22/24 07:25 Dose: 3 ml Documented By: BING Calcium Carbonate (Calcium Carbonate 750 Mg Tab.Chew) 750 mg PO Q4H PRN PRN Reason: Heartburn Clonazepam (Clonazepam 0.5 Mg Tablet) 0.5 mg PO BID PRN PRN Reason: Anxiety Last Admin: 05/21/24 16:00 Dose: 0.5 mg Documented By: MACK Clonazepam (Clonazepam 0.5 Mg Tablet) 0.5 mg PO DAILY@0800 [facility] Last Admin: 05/22/24 09:23 Dose: 0.5 mg Documented By: MACK Diltiazem HCl (Diltiazem Hcl Cd 240 Mg Cap.Er.Deg) 240 mg PO DAILY [facility]; Protocol Last Admin: 05/22/24 09:23 Dose: 240 mg Documented By: MACK Enoxaparin Sodium (Enoxaparin Sodium 40 Mg/0.4 Ml Syringe) 40 mg SUBCUT Q24H [facility] Last Admin: 05/22/24 09:24 Dose: 40 mg Documented By: MACK Fluticasone/Umeclidinium/Vilanterol (Fluticasone/Umeclidinium/Vilanterol 100/62.5/25 Blst.W.Dev) 1 puff INHALE DAILY [facility] Last Admin: 05/22/24 07:25 Dose: 1 puff Documented By: BING Furosemide (Furosemide 40 Mg/4 Ml Vial) 40 mg IVPUSH DAILY [facility]; Protocol Last Admin: 05/22/24 09:23 Dose: 40 mg Documented By: MACK Glucose (Glucose Gel 15 Gm Gel..Gram.) 15 gm PO Q15M PRN; Protocol PRN Reason: per Hypoglycemia Standing Ord. Dextrose (D10) 250 mls @ 750 mls/hr IV Q15M PRN; Protocol PRN Reason: per Hypoglycemia Standing Ord. Insulin Human Lispro (Insulin Lispro 100 Unit/Ml 3 Ml Vial) 0 unit SUBCUT QIDACHS [facility]; Protocol Last Admin: 05/22/24 07:42 Dose: Not Given Documented By: MACK Non-Admin Reason: [id number] Isosorbide Mononitrate (Isosorbide Mononitrate 30 Mg Tab.Er.24h) 30 mg PO DAILY [facility]; Protocol Last Admin: 05/22/24 09:23 Dose: 30 mg Documented By: MACK Magnesium Hydroxide (Milk Of Magnesia 30 Ml Oral.Susp) 30 ml PO DAILY PRN PRN Reason: Constipation Melatonin (Melatonin 3 Mg Tablet) 6 mg PO BEDTIME PRN PRN Reason: Insomnia Omeprazole (Omeprazole 20 Mg Capsule.Dr) 20 mg PO DAILY [facility] Last Admin: 05/22/24 09:24 Dose: 20 mg Documented By: MACK Ondansetron HCl (Ondansetron Hcl 4 Mg/2 Ml Vial) 4 mg IVPUSH Q8H PRN PRN Reason: Nausea and Vomiting Prednisone (Prednisone 20 Mg Tablet) 40 mg PO DAILY [facility] Last Admin: 05/22/24 09:23 Dose: 40 mg Documented By: MACK Sodium Chloride (0.9 % Sodium Chloride Flush 3 Ml Syringe) 3 ml IVFLUSH QSHIFT [facility] Last Admin: 05/22/24 09:24 Dose: 3 ml Documented By: MACK Temazepam (Temazepam 15 Mg Capsule) 30 mg PO BEDTIME BEN Last Admin: 05/22/24 01:13 Dose: 30 mg Documented By: ERNESTINA Comments: pt request at this time, states this is her bedtime Vitamin D (Cholecalciferol (Vitamin D3) 25 Mcg Tablet) 50 mcg PO DAILY BEN Last Admin: 05/22/24 09:23 Dose: 50 mcg Documented By: MACK Labs 05/22/24 05:29 05/22/24 05:29 Labs: Laboratory Results - last 24 hr 05/21/24 05/21/24 05/21/24 12:13 15:54 19:50 MCV MCH MCHC RDW Plt Count MPV Immature Gran % (Auto) Neut % (Auto) Lymph % (Auto) [place] % (Auto) Eos % (Auto) Baso % (Auto) Lymph # (Auto) [place] # (Auto) Eos # (Auto) Baso # (Auto) Abs Immat Gran (auto) Absolute Neuts (auto) Absolute Nucleated RBC Nucleated RBC % (auto) Anion Gap 15 Estim Creat Clear Calc 32.0 Estimated GFR 22 POC Glucose 234 H 147 H Random Glucose 320 H Calcium 9.7 Urine Color Urine Appearance Urine pH Ur Specific [place] Urine Protein Urine Glucose (UA) Urine Ketones Urine Blood Urine Nitrite Ur Leukocyte Esterase Urine RBC Urine WBC Ur Squamous Epith Cells Urine Bacteria Hyaline Casts 05/22/24 05/22/24 05/22/24 05:29 07:37 08:30 MCV 90.2 MCH 26.5 L MCHC 29.4 L RDW 15.1 Plt Count 156 L MPV 11.3 Immature Gran % (Auto) 0.5 H Neut % (Auto) 83.3 H Lymph % (Auto) 8.1 L [place] % (Auto) 7.9 Eos % (Auto) 0.0 Baso % (Auto) 0.2 Lymph # (Auto) 0.7 L [place] # (Auto) 0.7 Eos # (Auto) 0.0 Baso # (Auto) 0.0 Abs Immat Gran (auto) 0.04 H Absolute Neuts (auto) 7.0 Absolute Nucleated RBC 0.000 Nucleated RBC % (auto) 0.0 Anion Gap 10 L Estim Creat Clear Calc 49.2 Estimated GFR 36 POC Glucose 122 H Random Glucose 143 H Calcium 8.7 D Urine Color Yellow Urine Appearance Clear Urine pH 6.5 Ur Specific [place] 1.015 Urine Protein Trace Urine Glucose (UA) Negative Urine Ketones Negative Urine Blood Negative Urine Nitrite Negative Ur Leukocyte Esterase Small (1+) H Urine RBC 0-2 Urine WBC 0-5 Ur Squamous Epith Cells 0-2 Urine Bacteria None Seen Hyaline Casts 0-2 Microbiology Microbiology Results: Microbiology 05/21/24 02:50 Blood Culture - Preliminary Blood - Venous No growth after 24 hours. 05/21/24 02:50 Blood Culture - Preliminary Blood - Venous No growth after 24 hours. Assessment and Plan (1) VERN (acute kidney injury): Status: Acute (2) COPD (chronic obstructive pulmonary disease): Status: Acute Plan 64-year-old female with pertinent history of diastolic congestive heart failure, ALEKSEY/OHS on nocturnal BiPAP, chronic hypoxic respiratory failure due to COPD, morbid obesity, hypertension, mood disorder who presents to the emergency department for evaluation of dyspnea. Acute on chronic hypoxic/hypercarbic respiratory failure due to acute exacerbation of COPD and acute on chronic congestive heart failure with preserved EF IV diuresis. Continue supplemental oxygen On nocturnal BiPAP. systemic steroids. Scheduled and p.r.n. DuoNebs. Continue home inhaler Acute kidney injury. improving near baseline secondary to diuretics Hold lasix and spironolactone for now Hyperkalemia possibly from spironolactone use, will hold lokelma follow BMP Chronic normocytic anemia Likely anemia of chronic disease Hypertension Continue home antihypertensives Chronic pain On p.r.n. oxycodone Super Morbid obesity. BMI 50.5 Counseled regarding diet Mood disorder Continue home mood stabilizers DVT prophylaxis: [facility] Attending Dr. Reynolds Full code Quality Stroke Does the patient have a stroke diagnosis?: No VTE Prior VTE?: No VTE Risk Level:: Medical - moderate - high VTE Device Contraindication: Treatment Not Indicated VTE Drug Contraindication: N/A - Med Ordered
--- NOTE | 2024-05-22 10:18 | MHC.CM.PN ---
PT is recommending home with services. Per ROUNDS discussion, Patient is not yet medically cleared for dc (monitoring K); CM will follow.
[2024-05-22 11:58] LABS: Glucose, Whole Blood 265 mg/dL (60-115)
[2024-05-22] MEDS: Insulin Lispro 100 UNIT/ML 3 ML VIAL SUBCUT ×2 (12:21→16:55)
--- NOTE | 2024-05-22 16:05 | HO.WOUND ---
Wound Consult : Initial 64yr old? admitted to [facility] on 05/21/24 - See progress notes and H&P for detailed history.? Wound consult follow up for Right lateral thigh wound.? Patient is known to this conventional underwriter from recent admissions. Patient agreeable to assessment and photo documentation.? Patient reports since her discharge last admission she did obtain a new wound vac at home but through [facility] it was discontinued. Todays assessment reveals continued improvement and healing. There remains depth of 3cm - wound vac wound likely provide a benefit to regenerating tissue in this space. Will continue Hydrofiber AG here in patient but encouraged patient to follow up with Dr. Mills for new wound vac (NPWT) orders. Overall the site is significantly improved compared to my last assessment during her previous admission. Wound bed is clean red moist tissue. Periwound intact. Recommendations: 1. Right Upper Lateral Leg: Cleanse and irrigate with NS, pat dry. Apply skin prep to periwound, lightly pack with Durafiber AG, cover with foam dressing. Change every 3 days. Once home and coordinate with your [facility] service and Dr. Mills to re-apply your wound vac.
[2024-05-22 16:09] LABS: Glucose, Whole Blood 155 mg/dL (60-115)
[2024-05-22 20:02] LABS: Glucose, Whole Blood 184 mg/dL (60-115)
[2024-05-23 03:04] VITALS: BP 126/57; PULSE 56; RESP 20; TEMP 36.3; O2SAT 99
--- NOTE | 2024-05-23 07:18 | PM.DS ---
DS: Providers Provider Date of Service: 05/23/24 Date of admission: 05/21/24 05:43 Primary care physician: Sedrick Ramon MD Consults: 05/22/24 10:23 Consult to Wound Care Routine Reason for consultation: Right lateral thigh chronic wound Has provider been notified: Yes DS: Diagnosis Discharge Diagnosis (1) VERN (acute kidney injury): Status: Acute (2) COPD (chronic obstructive pulmonary disease): Status: Acute DS: Summary Hospital Course Hospital Course: History and physical as per admitting provider. This is a 64-year-old female with pertinent history of diastolic congestive heart failure, ALEKSEY/OHS on nocturnal BiPAP, chronic hypoxic respiratory failure due to COPD, morbid obesity, hypertension, mood disorder who presents to the emergency department for evaluation of dyspnea. Patient states she had sudden onset of dyspnea when she was laying down. Minimal nonproductive cough. The dyspnea is better when she sits up and worse when she is lying down. Patient was hypoxic on her home NIV. Also had associated wheezing. No fever, chills, chest pain, palpitations, abdominal pain, changes in urinary or bowel habits. In the emergency department, patient with respiratory acidosis which resolved with BiPAP. Found to have VERN with creatinine 2.36 Acute on chronic hypoxic/hypercarbic respiratory failure due to acute exacerbation of COPD exacerbation. Initially thought to be related to CHF and treated with IV diuresis but seems overall more COPD related. She continued on her supplemental oxygen and nocturnal CPAP. Started on systemic steroids and scheduled respiratory treatments. At this time patient feels like she was at baseline. We will continue all of her home medications and short course of prednisone taper. Acute kidney injury. at baseline, secondary to diuretics. continue lasix, stop spironolactone Hyperkalemia possibly from spironolactone use and VERN, Treated with Lokelma. Spironolactone stopped. Check BMP in 2 days Chronic normocytic anemia Likely anemia of chronic disease Hypertension Continue home antihypertensives Chronic pain On p.r.n. oxycodone Super Morbid obesity. BMI 50.5 Counseled regarding diet Mood disorder Continue home mood stabilizers Time Attestation Discharge Coordination Time (in mins): 40 Quality: Safe Use of Opioids Does Pt have an Active Cancer Diagnosis on the Problem List?: No Quality: Stroke Does the patient have a stroke diagnosis?: No Physical Exam Vital Signs: Vital Signs: Last Vital Signs Temp 97.4 F 05/23/24 03:04 Pulse 56 05/23/24 03:04 Resp 20 05/23/24 03:04 BP 126/57 L 05/23/24 03:04 Pulse Ox 99 05/23/24 03:04 O2 Del Method CPAP 05/23/24 03:04 O2 Flow Rate 2 05/22/24 23:30 Oxygen Flow Rate 3 05/21/24 02:32 BMI result Body Mass Index 50.5 Appearing in no acute distress head is normocephalic atraumatic eyes pupils are PERRLA sclera is anicteric mouth throat mucous membranes are intact and moist neck is supple no lymphadenopathy, no JVD noted lung sounds are clear to auscultation heart regular rate rhythm, clear S1, S2 positive bowel sounds, abdomen is soft, nontender neuro patient is alert x3, no focal deficits DS: Data Data Completed and Pending Completed studies during hospitalization [Text1]: Procedures Assistance with Respiratory Ventilation, Less than 24 Consecutive Hours, Continuous Positive Airway Pressure (04/24/24) Insertion of Infusion Device into Left Cephalic Vein, Percutaneous Approach (02/19/22) Labs on day of discharge: Laboratory Results - last 24 hr 05/22/24 05/22/24 05/22/24 07:37 08:30 11:55 POC Glucose 122 H 265 H Urine Color Yellow Urine Appearance Clear Urine pH 6.5 Ur Specific [place] 1.015 Urine Protein Trace Urine Glucose (UA) Negative Urine Ketones Negative Urine Blood Negative Urine Nitrite Negative Ur Leukocyte Esterase Small (1+) H Urine RBC 0-2 Urine WBC 0-5 Ur Squamous Epith Cells 0-2 Urine Bacteria None Seen Hyaline Casts 0-2 05/22/24 05/22/24 16:03 19:59 POC Glucose 155 H 184 H Urine Color Urine Appearance Urine pH Ur Specific [place] Urine Protein Urine Glucose (UA) Urine Ketones Urine Blood Urine Nitrite Ur Leukocyte Esterase Urine RBC Urine WBC Ur Squamous Epith Cells Urine Bacteria Hyaline Casts Preliminary micro results at discharge 05/21/24 02:50 Blood Culture - Preliminary Blood - Venous No growth after 48 hours. 05/21/24 02:50 Blood Culture - Preliminary Blood - Venous No growth after 48 hours. Discharge Plan Discharge Anticipated Discharge Date/Time: 05/23/24 07:14 Patient Disposition: Home Health Service Discharge Diagnosis: Acute on chronic hypoxic/hypercarbic respiratory failure COPD exacerbation Mild acute on chronic congestive heart failure Acute kidney injury Hyperkalemia Referrals: [facility] [Outside] - 1 Week Sedrick Ramon MD [Primary Care Provider] - 1 Week Discharge Medications: New prednisone 10 mg tablet See Taper PO DIRECTED Qty: 20 0RF Taper: Prednisone 40 mg daily for 2 Days and 0 Hour 30 mg daily for 2 Days and 0 Hour 20 mg daily for 2 Days and 0 Hour 10 mg daily for 2 Days and 0 Hour Rx Instructions: see taper instructions Continued clonazepam 0.5 mg Tablet 0.5 mg PO BID PRN (Reason: Anxiety) diltiazem HCl 240 mg Capsule,Extended Release 24 Hr 240 mg PO DAILY oxycodone-acetaminophen 10-325 mg Tablet 1 tab PO TID PRN (Reason: Pain) temazepam 30 mg Capsule 30 mg PO BEDTIME lisinopril 30 mg Tablet 30 mg PO BID buprenorphine HCl 2 mg Tablet, Sublingual 4 mg SUBLINGUAL QID PRN (Reason: Pain) omeprazole 20 mg Tablet,Delayed Release (Dr/Ec) 20 mg PO DAILY cholecalciferol (vitamin D3) 50 mcg (2,000 unit) Tablet 50 mcg PO DAILY Trelegy Ellipta 100-62.5-25 mcg blister with device 1 ea INHALATION DAILY furosemide 20 mg tablet 20 mg PO BID clonazepam 0.5 mg Tablet 0.5 mg PO DAILY@0800 isosorbide mononitrate 30 mg Tablet Extended Release 24 Hr 30 mg PO DAILY Qty: 30 0RF Protocol: Hold for SBP< HOLD for SBP < : 90 Jardiance 10 mg Tablet 10 mg PO DAILY Qty: 30 0RF Roque-24 400 mg capsule,extended release 24hr 400 mg PO DAILY Discontinued doxycycline monohydrate 100 mg tablet 100 mg PO Q12H spironolactone 25 mg Tablet 25 mg PO DAILY Qty: 30 0RF Protocol: Hold for SBP< HOLD for SBP < : 90 Discharge Orders: Discharge Order (Routine); Ordered 05/23/24 Ordered By: Meagan Farrar Diet: Advance to usual diet Activity on Discharge: As tolerated Stand Alone Forms: Patient Portal Discharge page Print Language: Yoruba Other Ambulatory Orders: Basic Metabolic Panel (Routine) Timeframe: 2 Days Facility: [facility] - Location: Laboratory Ordered By: Meagan Farrar Activity Restrictions/Additional Instructions: Topical Wound Care Recommendations: Right Upper Lateral Leg: Cleanse and irrigate with NS, pat dry. Apply skin prep to periwound, lightly pack with Durafiber AG, cover with foam dressing. Change every 3 days. Once home and coordinate with your [facility] service and Dr. Mills to re-apply your wound vac. The Negative Pressure Wound Therapy will allow for the base of the wound to continue to fill. It will be less likely for the wound to close with space behind. Care Plan Goals: Your spironolactone was stopped Health Concerns: Acute on chronic hypoxic/hypercarbic respiratory failure COPD exacerbation Mild acute on chronic congestive heart failure Acute kidney injury Hyperkalemia Plan of Treatment: Follow-up with primary care provider as needed Take all medications as prescribed Assessment: See discharge summary
[2024-05-23] MEDS: Fluticasone/Umeclidinium/Vilanterol 100/62.5/25 BLST.W.DEV 1 PUFF INHALE (07:36)
[2024-05-23 07:37] VITALS: PULSE 65; RESP 17; O2SAT 98
[2024-05-23 07:51] LABS: Glucose, Whole Blood 102 mg/dL (60-115)
[2024-05-23 08:09] LABS: Anion Gap 12 (12-20); Blood Urea Nitrogen 41 mg/dL (9-16); Calcium 9.3 mg/dL (8.4-10.2); Carbon Dioxide 39 mmol/L (22-29); Chloride 98 mmol/L (96-108); Creatinine Clr Calc Pharmacy 50.2; Estimated Glomerular Filt Rate 36; Glucose Random 112 mg/dL (60-115); Potassium 5.2 mmol/L (3.3-5.1); Sodium 144 mmol/L (135-145)
--- NOTE | 2024-05-23 08:55 | MHC.CM.PN ---
Per [employer]'s request, CM has provided Patient with the PCP pamphlet. CM will follow.
--- NOTE | 2024-05-23 09:22 | W.MHC.F2F ---
Service Date Service Date: 05/23/24 Encounter Date of encounter: 05/23/24 Reasons for Services Signs and symptoms assessed: COPD exacerbation VERN Hyperkalemia Reason for physical therapy: home safety and mobility Homebound: Leaving the home is medically contraindicated at this time without the asist of a device and/or another person due th the listed conditions above and below. Reason homebound: weakness related to hospital stay Certification: Based on the above findings, I certify that this patient is confined to the home and needs intermittent residential care, physical therapy and/or speech therapy, or continues to need occupational therapy. The patient is under my care, and I have initiated the establishment of the plan of care. The patient will be followed by a physician who will periodically review the plan of care. Time Spent With Patient Time: Total time managing care of this patient today ____ minutes.
--- NOTE | 2024-05-23 09:25 | MHC.CM.PN ---
Patient has been medically cleared for dc to home today, with services. Patient is active with [facility], who has been notified of today's dc. Last IMM was addressed on 05/21/2024.
[2024-05-23] MEDS: predniSONE 20 MG TABLET 40 MG PO (09:26)
[2024-05-23] MEDS: clonazePAM 0.5 MG TABLET PO ×2 (09:28)
[2024-05-23] MEDS: Isosorbide Mononitrate 30 MG TAB.ER.24H PO (09:28)
[2024-05-23] MEDS: Omeprazole 20 MG CAPSULE.DR PO (09:28)
[2024-05-23] MEDS: Enoxaparin Sodium 40 MG/0.4 ML SYRINGE SUBCUT (09:30)
[2024-05-23] MEDS: 0.9 % Sodium Chloride Flush 3 ML SYRINGE IVFLUSH (09:32)
[2024-05-23] MEDS: Sodium Zirconium Cyclosilicate 10 GM POWD.PACK PO (09:36)
[2024-05-23 09:40] VITALS: BP 150/66; PULSE 72
[2024-05-23] MEDS: Cholecalciferol (Vitamin D3) 25 MCG TABLET 50 MCG PO (09:40)
[2024-05-23] MEDS: dilTIAZem HCL CD 240 MG CAP.ER.DEG PO (09:40)
--- NOTE | 2024-05-23 10:36 | HO.WOUND ---
Wound Consult : Follow up 64yr old? admitted to [facility] on 05/21/24 - See progress notes and H&P for detailed history.? Wound consult placed verbally by direct care nurse to AMIE Intertrigo to the posterior knee crease. The areas was cleansed with Nolan Ph no rinse spray. Mirrored linear redness with scattered partial thickness breakdown, no slough noted, no induraiton no fluctuance noted. Patient educated that Nolan spray will apply barrier of dimethicone and cleanse all in one. She was educated on Interdry. She reports she has used interdry in the past and it was successful at [facility] treatment. Interdry applied after Nolan Cleansing. Right Posterior Knee: Cleanse with Nolan PH no rinse spray. Wipe clean and allow to dry. Tuck Interdry AG Sheet into skin fold to wick and translocate moisture away from skin fold.? Be sure to leave at least 2 inch of fabric exposed outside of skin fold.? Change after 5 days or when soiled. May wash and air dry after use will not have antimicrobial effects after 5 days but will continue to wick away moisture and provide appropriate treatment. From yesterdays assessment: Patient reports since her discharge last admission she did obtain a new wound vac at home but through [facility] it was discontinued. Todays assessment reveals continued improvement and healing. There remains depth of 3cm - wound vac wound likely provide a benefit to regenerating tissue in this space. Will continue Hydrofiber AG here in patient but encouraged patient to follow up with Dr. Mills for new wound vac (NPWT) orders. Overall the site is significantly improved compared to my last assessment during her previous admission. Wound bed is clean red moist tissue. Periwound intact. Recommendations: 1. Right Upper Lateral Leg: Cleanse and irrigate with NS, pat dry. Apply skin prep to periwound, lightly pack with Durafiber AG, cover with foam dressing. Change every 3 days. Once home and coordinate with your [facility] service and Dr. Mills to re-apply your wound vac.
[2024-05-23] MEDS: oxyCODONE HCl Immed Release 5 MG TABLET PO (10:59)
[2024-05-23 11:05] LABS: Glucose, Whole Blood 112 mg/dL (60-115)
== END 2024-05-23 12:50 | disposition home health service (06) | DRG 291 ==
LOC: HO.ED 04:32 → HO.EDOVER 05:46 → HO.IMC 07:05
PROVIDERS: Admitting Provider Student in an Organized Health Care Education/Training Program; Emergency Provider Emergency Medicine; PCP Internal Medicine; Visit Provider Nurse Practitioner Acute Care
DX: I11.0 Hypertensive heart disease with heart failure (principal); I50.33 Acute on chronic diastolic (congestive) heart failure; J96.21 Acute and chronic respiratory failure with hypoxia; J96.22 Acute and chronic respiratory failure with hypercapnia; F11.20 Opioid dependence, uncomplicated; E66.2 Morbid (severe) obesity with alveolar hypoventilation; Z68.43 Body mass index [BMI] 50.0-59.9, adult; J44.1 Chronic obstructive pulmonary disease with (acute) exacerbation; N17.9 Acute kidney failure, unspecified; F39 Unspecified mood [affective] disorder; D63.8 Anemia in other chronic diseases classified elsewhere; G89.29 Other chronic pain; E87.5 Hyperkalemia; Z20.822 Contact with and (suspected) exposure to COVID-19; Z99.81 Dependence on supplemental oxygen; Z87.891 Personal history of nicotine dependence; Z79.899 Other long term (current) drug therapy
CPT/HCPCS: 0241U; 36415; 71045; 80048; 80053; 81001; 82803; 82947; 83605; 83690; 83735; 83880; 84484; 85025; 87040; 87086; 93005; 97161; 99285; J0456; J1650; J1940; J2919

== ENCOUNTER → 2024-05-21 02:57 | Outpatient (BNV) | payer MEDICARE, MEDICAID, SELFPAY | PROVIDERS: Admitting Provider Student in an Organized Health Care Education/Training Program; Emergency Provider Emergency Medicine; Visit Provider Internal Medicine Cardiovascular Disease | DX: R06.02 Shortness of breath (principal) | CPT/HCPCS: 93010 ==

== ENCOUNTER → 2024-05-21 05:43 | Outpatient (BNV) | payer MEDICARE, MEDICAID, SELFPAY | PROVIDERS: Admitting Provider Student in an Organized Health Care Education/Training Program; Emergency Provider Emergency Medicine; Visit Provider Student in an Organized Health Care Education/Training Program | DX: I50.9 Heart failure, unspecified (principal); N17.9 Acute kidney failure, unspecified; J44.1 Chronic obstructive pulmonary disease with (acute) exacerbation | CPT/HCPCS: 99223; 99232; 99239; 99499; G0180 ==

== ENCOUNTER 2024-05-26 11:08 | Outpatient (AMB) | payer MEDICARE, MEDICAID, SELFPAY ==
[2024-05-26 11:15] VITALS: BP 126/60; PULSE 55; O2SAT 96; BMI 49.0
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
== END 2024-05-26 12:14 | disposition home or self-care (01) ==
LOC: HO.HMCC 11:08
PROVIDERS: Visit Provider Internal Medicine
DX: K50.90 Crohn's disease, unspecified, without complications (principal); N17.9 Acute kidney failure, unspecified; Z68.43 Body mass index [BMI] 50.0-59.9, adult; J96.11 Chronic respiratory failure with hypoxia; I50.33 Acute on chronic diastolic (congestive) heart failure; J44.1 Chronic obstructive pulmonary disease with (acute) exacerbation; F11.99 Opioid use, unspecified with unspecified opioid-induced disorder; D64.9 Anemia, unspecified; R73.9 Hyperglycemia, unspecified; B02.9 Zoster without complications

== ENCOUNTER → 2024-05-26 11:08 | Outpatient (BNVA) | payer MEDICARE, MEDICAID, SELFPAY | PROVIDERS: Visit Provider Internal Medicine | DX: K50.90 Crohn's disease, unspecified, without complications (principal); N17.9 Acute kidney failure, unspecified; D64.9 Anemia, unspecified; J96.11 Chronic respiratory failure with hypoxia; I50.33 Acute on chronic diastolic (congestive) heart failure; J44.1 Chronic obstructive pulmonary disease with (acute) exacerbation; R73.9 Hyperglycemia, unspecified; F11.90 Opioid use, unspecified, uncomplicated; B02.9 Zoster without complications | CPT/HCPCS: 96127; 99212 ==

== ENCOUNTER 2024-05-30 11:44 | Outpatient (REF) | payer MEDICARE, MEDICAID, SELFPAY ==
[2024-05-30 12:33] LABS: Blood Urea Nitrogen 35 mg/dL (9-16); Calcium 8.9 mg/dL (8.4-10.2); Estimated Glomerular Filt Rate 42; Glucose Random 134 mg/dL (60-115)
[2024-05-30 13:22] LABS: Anion Gap 12 (12-20); Carbon Dioxide 35 mmol/L (22-29); Chloride 103 mmol/L (96-108); Potassium 6.3 mmol/L (3.3-5.1); Sodium 144 mmol/L (135-145)
== END 2024-05-30 11:45 | disposition home or self-care (01) ==
LOC: HO.LAB 11:44
PROVIDERS: PCP Internal Medicine; Visit Provider Internal Medicine
DX: N17.9 Acute kidney failure, unspecified (principal)
CPT/HCPCS: 36415; 80048

== ENCOUNTER 2024-06-01 15:56 | Outpatient (REF) | payer MEDICARE, MEDICAID, SELFPAY ==
[2024-06-01 18:20] LABS: Anion Gap 16 (12-20); Blood Urea Nitrogen 21 mg/dL (9-16); Calcium 9.9 mg/dL (8.4-10.2); Carbon Dioxide 34 mmol/L (22-29); Chloride 97 mmol/L (96-108); Estimated Glomerular Filt Rate 49; Glucose Random 156 mg/dL (60-115); Sodium 141 mmol/L (135-145)
[2024-06-01 18:58] LABS: Potassium 6.1 mmol/L (3.3-5.1)
== END 2024-06-01 15:57 | disposition home or self-care (01) ==
LOC: HO.LAB 15:56
PROVIDERS: PCP Internal Medicine; Visit Provider Internal Medicine
DX: Z13.89 Encounter for screening for other disorder (principal)
CPT/HCPCS: 36415; 80048

== ENCOUNTER 2024-06-01 16:41 | Emergency (ER) | payer MEDICARE, MEDICAID, SELFPAY ==
--- NOTE | ~2024-06-01 | XR_ITS ---
EXAMINATION: XR CHEST CLINICAL INFORMATION: Chest pain COMPARISON: None available. TECHNIQUE: 2 views of the chest were obtained. FINDINGS: No significant abnormality is noted involving the heart, lungs, mediastinum, bony thorax or soft tissues. XR/XR chest 2V IMPRESSION: Unremarkable examination. Electronically signed by: Benson Reynolds DO 06/01/2024 09:09 PM [facility]
[2024-06-01 16:56] VITALS: BP 154/51; PULSE 63; RESP 18; TEMP 36.8; O2SAT 96; BMI 49.1
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
--- NOTE | 2024-06-01 17:01 | ECG_ITS ---
Test Reason : abnormal lab Blood Pressure : / mmHG Vent. Rate : 060 BPM Atrial Rate : 060 BPM P-R Int : 156 ms QRS Dur : 082 ms QT Int : 392 ms P-R-T Axes : 029 024 053 degrees QTc Int : 392 ms Normal sinus rhythm Cannot rule out Anterior infarct , age undetermined Abnormal ECG When compared with ECG of 21-MAY-2024 02:57, No significant change was found Referred By: Nikia Ceballos Electronically Signed By:CHANO BENAVIDES MD
[2024-06-01 18:01] LABS: Basophils Percent Auto 0.3 % (0-2); Eosinophils Percent Auto 0.1 % (0-4); Hematocrit 34.5 % (37.0-47.0); Hemoglobin 10.5 g/dl (12.0-16.0); Imm Gran Abs Auto 0.09 X10*3/uL (0.00-0.03); Imm Gran Pct Auto 0.6 % (0.0-0.4); Lymphocytes Absolute Auto 0.8 X10*3/uL (1.2-4.9); Lymphocytes Percent Auto 5.5 % (20-40); MANUAL DIFF FLAG SCAN; Mean Corpuscular HGB Conc 30.4 g/dl (31.0-35.0); Mean Corpuscular Hemoglobin 26.6 pg (27.0-33.0); Mean Corpuscular Volume 87.6 fL (80.0-98.0); Mean Platelet Volume 9.3 fL (9.4-12.3); Monocytes Absolute Auto 0.3 X10*3/uL (0.1-1.2); Monocytes Percent Auto 1.7 % (2-11); Neutrophils Absolute Auto 13.7 x10*3/uL (2.0-8.3); Neutrophils Percent Auto 91.8 % (45-73); Platelet Count 251 X10*3/uL (160-400); Red Blood Count 3.94 X10*6/uL (4.20-5.50); Red Cell Distribution Width 15.3 % (11.0-16.0); SCAN SMEAR FLAG 1
[2024-06-01 18:04] LABS: INTERNATIONAL NORM RATIO 0.9 (0.9-1.1); Prothrombin Time 10.9 SEC (10.9-12.4)
[2024-06-01 18:13] LABS: Alanine Aminotransferase 9 U/L (0-31); Albumin Level 4.1 g/dL (3.5-5.0); Alkaline Phosphatase 103 U/L (39-117); Anion Gap 13 (12-20); Aspartate Amino Transferase 13 U/L (5-31); Bilirubin Direct 0.1 mg/dL (0.0-0.5); Bilirubin Total 0.3 mg/dL (0.0-1.0); Blood Urea Nitrogen 21 mg/dL (9-16); Calcium 9.4 mg/dL (8.4-10.2); Carbon Dioxide 36 mmol/L (22-29); Chloride 97 mmol/L (96-108); Creatinine Clr Calc Pharmacy 66.3; Estimated Glomerular Filt Rate 54; Glucose Random 134 mg/dL (60-115); Potassium 5.8 mmol/L (3.3-5.1); Sodium 140 mmol/L (135-145); Total Protein 7.5 g/dL (6.5-8.0)
[2024-06-01 18:17] LABS: Influenza A PCR NEGATIVE (Negative); Influenza B PCR NEGATIVE (Negative); Resp Syncy Virus RNA Qual PCR NEGATIVE (Negative); SARS COV2 PCR INHOUSE NEGATIVE (Negative)
[2024-06-01 18:23] LABS: Troponin-I High Sensitivity < 2.7 ng/L (<3.5-17.0)
[2024-06-01 18:27] LABS: SLIDE REVIEW VERIFIED
[2024-06-01] MEDS: Sodium Zirconium Cyclosilicate 10 GM POWD.PACK PO (19:46)
[2024-06-01 19:50] VITALS: BP 148/62; PULSE 72; RESP 20; TEMP 36.7; O2SAT 96
== END 2024-06-01 20:05 | disposition home or self-care (01) ==
PROVIDERS: Physician Assistant Medical; Emergency Provider Internal Medicine; PCP Internal Medicine
DX: E87.5 Hyperkalemia (principal); R51.9 Headache, unspecified; R79.89 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ed abnormal findings of blood chemistry; R94.31 Abnormal electrocardiogram [ECG] [EKG]; Z51.81 Encounter for therapeutic drug level monitoring; Z79.899 Other long term (current) drug therapy; Z03.818 Encounter for observation for suspected exposure to other biological agents ruled out
CPT/HCPCS: 0241U; 36415; 71046; 80048; 80076; 83735; 84484; 85025; 85610; 93005; 99283; 99284

== ENCOUNTER → 2024-06-01 17:01 | Outpatient (BNV) | payer MEDICARE, MEDICAID, SELFPAY | PROVIDERS: Emergency Provider Internal Medicine; PCP Internal Medicine; Visit Provider Internal Medicine Cardiovascular Disease | DX: R94.31 Abnormal electrocardiogram [ECG] [EKG] (principal) | CPT/HCPCS: 93010 ==

== ENCOUNTER 2024-06-06 13:56 | Outpatient (AMB) | payer MEDICARE, MEDICAID, SELFPAY ==
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
[2024-06-06 14:26] VITALS: BP 110/74; PULSE 60; O2SAT 94; BMI 49.1
== END 2024-06-06 15:16 | disposition home or self-care (01) ==
PROVIDERS: PCP Internal Medicine; Visit Provider Nurse Practitioner Family
DX: E87.5 Hyperkalemia (principal); N17.9 Acute kidney failure, unspecified; E87.3 Alkalosis; N18.30 Chronic kidney disease, stage 3 unspecified
CPT/HCPCS: 99204

== ENCOUNTER → 2024-06-06 13:56 | Outpatient (BNVA) | payer MEDICARE, MEDICAID, SELFPAY | PROVIDERS: PCP Internal Medicine; Visit Provider Nurse Practitioner Family | DX: E87.5 Hyperkalemia (principal); E87.3 Alkalosis; N17.9 Acute kidney failure, unspecified | CPT/HCPCS: 99202 ==

== ENCOUNTER 2024-06-08 13:31 | Outpatient (REF) | payer MEDICARE, MEDICAID, SELFPAY | END 2024-06-08 13:32 | disposition home or self-care (01) | LOC: HO.HMGCX 13:31 | PROVIDERS: PCP Internal Medicine; Visit Provider Internal Medicine | DX: N17.9 Acute kidney failure, unspecified (principal) | CPT/HCPCS: 76775 ==

== ENCOUNTER 2024-06-20 12:56 | Outpatient (AMB) | payer MEDICARE, MEDICAID, SELFPAY ==
[2024-06-20 13:02] VITALS: BP 150/84; PULSE 75; O2SAT 88
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
[2024-06-20 13:32] VITALS: BP 117/55; O2SAT 93
== END 2024-06-20 13:30 | disposition home or self-care (01) ==
PROVIDERS: PCP Internal Medicine; Visit Provider Nurse Practitioner Family
DX: E87.5 Hyperkalemia (principal); N17.9 Acute kidney failure, unspecified; E87.3 Alkalosis
CPT/HCPCS: 99214

== ENCOUNTER → 2024-06-20 12:56 | Outpatient (BNVA) | payer MEDICARE, MEDICAID, SELFPAY | PROVIDERS: PCP Internal Medicine; Visit Provider Nurse Practitioner Family | DX: N17.9 Acute kidney failure, unspecified (principal); E87.5 Hyperkalemia; E87.3 Alkalosis | CPT/HCPCS: 99212 ==

== ENCOUNTER 2024-06-29 13:34 | Outpatient (REF) | payer MEDICARE, MEDICAID, SELFPAY ==
[2024-06-29 16:50] LABS: Anion Gap 8 (12-20); Blood Urea Nitrogen 16 mg/dL (9-16); Calcium 9.1 mg/dL (8.4-10.2); Carbon Dioxide 41 mmol/L (22-29); Chloride 100 mmol/L (96-108); Estimated Glomerular Filt Rate > 60; Glucose Random 152 mg/dL (60-115); Potassium 4.5 mmol/L (3.3-5.1); Sodium 144 mmol/L (135-145)
--- OUTSIDE RECORDS SUMMARY | 2024-07-05 03:05 | XMS_ITS | Continuity of Care Document ---
Author Organization [facility] Address [address] [place] [address]- Care Team Providers Care Home Care Consultant Name Role Phone Yenny ROSE MD, Chirag Olivo Primary Care Physici an Encounter [facility]CT R [id number] Date(s): 05/03/24 - 06/10/24 [facility] [address] [place] [address]- Attending Physician: Not on Staff, Attending MD Encounter Type: Pre-OutPatient One Time Allergies, Adverse Reactions, Alerts Substance Criticality Severity Reaction Reaction Severity Status morphine High criticality Severe anaphylaxis A ctive propofol anaphylaxis Active gabapentin tardive dyskenesia Active Tomatoes mouth itch Active Immunizations Given and Recorded Vaccine Date Status Refusal Reason SARS-CoV-2(COVID-19)mRNA-LNP vac(abm750) 09/08/23 Recorded influenza virus vaccine, inactivated 05/05/22 [...] a day, 0 Refills, Maintenance, 09/24/21 10:36:00 AM EST, Partial fill upon patient request if the prescription is for a schedule II opioid drug. Start Date: 09/24/21 Status: Ordered Repeat number: 1 aspirin 81 mg oral delayed release tablet 81 mg, 1, tablet, By Mouth, 2 times a day, # 60 tablet, Refills 0, Tot. Refills 0, Maintenance, 03/21/24 4:28:00 PM EDT, Route to Pharmacy Electronically, [facility], Partial fill upon patient request if the prescription is for a schedule II opioid drug., 157, cm, 03/21/24 15:25:00 EDT, Height, 124, kg, 03/17/24 16:03:00 EDT, Dry Weight Start Date: 03/21/24 Status: Ordered Quantity: 60.0 Unit: tablet Repeat number: 1 atorvastatin 80 mg oral tablet 1 tablet = 80 mg, By Mouth, Daily at bedtime, # 30 tablet, 0 Refills, Maintenance, 05/14/22 4:09:00PM EDT, Tablet, [facility], Partial fill upon patient request if the prescription is for a schedule II opioid drug., 156, cm, 05/14/22 15:10:00 EDT, Height, 116, kg, 05/04/22 19:13:00 EDT, Dry Weight Start Date: 05/14/22 Status: Ordered Quantity: 30.0 Unit: tablet Repeat number: 1 buprenorphine 2 mg sublingual tablet, disintegrating 2 tablet = 4 mg, Sublingual, 4 times a day, 0 Refills, Maintenance, 09/01/23 6:46:00 AM EST, Tablet, Partial fill upon patient request if the prescription is for a schedule II opioid drug. Start Date: 09/01/23 Status: Ordered Repeat number: 1 Clonazepam = 1 mg, By Mouth, Daily, 0 Refills, Maintenance, 03/16/24 10:15:00 AM EDT, Partial fill upon patientrequest if the prescription is for a schedule II opioid drug. Start Date: 03/16/24 Status: Ordered Repeat number: 1 Clonazepam = 0.5 mg, By Mouth, 2 times a day, PRN anxiety, 0 Refills, Maintenance, 03/16/24 10:16:00 AM EDT, Partial fill upon patient request if the prescription is for a schedule II opioid drug. Start Date: 03/16/24 Status: Ordered Repeat number: 1 clonazePAM 0.5 mg oral tablet 1 tablet = 0.5 mg, By Mouth, Daily, PRN Anxiety, # 3 tablet, 0 Refills, Maintenance, 11/17/21 9:43:00 AM EDT, Tablet, Partial fill upon patient request if the prescription is for a schedule II opioid drug. Start Date: 11/17/21 Stop Date: 11/20/21 Status: Ordered Quantity: 3.0 Unit: tablet Repeat number: 1 DilTIAZem (Eqv-Tiazac) 240 mg/24 hours oral cap, extended release 1 capsule = 240 mg, By Mouth, Daily, 0 Refills, Maintenance, 03/15/24 9:52:00 AM EDT, Partial fill upon patient request if the prescription is for a schedule II opioid drug. Start Date: 03/15/24 Status: Ordered Repeat number: 1 docusate sodium 100 mg oral capsule 1 capsule = 100 mg, By Mouth, 2 times a day, # 28 capsule, 0 Refills, Maintenance, 03/21/24 4:26:00 PM EDT, Capsule, [facility], Partial fill upon patient request if the prescription is for a schedule II opioid drug., 157, cm, 03/21/24 15:25:00 EDT, Height, 124, kg, 03/17/24 16:03:00 EDT, Dry Weight Start Date: 03/21/24 Stop Date: 04/04/24 Status: Ordered Quantity: 28.0 Unit: capsule Repeat number: 1 Lisinopril = 60 mg, By Mouth, Daily, 0 Refills, Maintenance, 03/15/24 9:52:00 AM EDT, Partial fill upon patientrequest if the prescription is for a schedule II opioid drug. Start Date: 03/15/24 Status: Ordered Repeat number: 1 Narcan 4 mg/0.1 mL nasal spray = 4 mg, Naris, Left, Once, PRN Other, To reverse opioid overdose, may repeat every 2 to 3 minutes until patient responds, call 911 in the meantime, # 2 each, 0 Refills, Soft Stop, 09/01/23 3:31:00 PM EST, [facility]/pharmacy #[id number], Partial fill upon patient request if the prescription is for a schedule II opioid drug., 158, cm, 09/01/23 4:14:00 EST, Height, 124.3, kg, 09/01/23 4:14:00 EST, Dry Weight Start Date: 09/01/23 Status: Ordered Quantity: 2.0 Unit: each Repeat number: 1 omeprazole 20 mg oral delayed release tablet 1 tablet = 20 mg, By Mouth, Daily, # 30 tablet, 0 Refills, Maintenance, 04/17/22 6:01:00 PM EDT, CR Tablet, [facility]/pharmacy #[id number], Partial fill upon patient request if the prescription is for a schedule II opioid drug., 158, cm, 04/17/22 16:11:00 EDT, Height, 106, kg, 02/26/22 23:02:00 EDT, Dry Weight Start Date: 04/17/22 Status: Ordered Quantity: 30.0 Unit: tablet Repeat number: 1 oxyCODONE 5 mg oral capsule 2 capsule = 10 mg, By Mouth, Every 4 hours, PRN Pain , Moderate, 0 Refills, Maintenance, 09/01/23 6:47:00 AM EST, Capsule, Partial fill upon patient request if the prescription is for a schedule II opioid drug. Start Date: 09/01/23 Status: Ordered Repeat number: 1 temazepam 15 mg oral capsule TAKE 2 CAPSULES (30 MG TOTAL) BY MOUTH NIGHTLY AT BEDTIME NEEDED. Start Date: 03/17/24 Status: Ordered Repeat number: 1 theophylline 400 mg/24 hours oral tablet, extended release 1 tablet = 400 mg, By Mouth, Daily, Maintenance, 02/05/21 1:06:00 PM EDT, ER Tablet Start Date: 02/05/21 Status: Ordered Repeat number: 1 Trelegy Ellipta 200 mcg-62.5 mcg-25 mcg/inh inhalation powder 1 puffs, Inhalation, Daily, at the same time every day, 0 Refills, Maintenance, 09/24/21 10:40:00 AM EST, Powder, Partial fill upon patient request if the prescription is for a schedule II opioid drug. Start Date: 09/24/21 Status: Ordered Repeat number: 1 Problem List Condition Confirmation Course Effective Dates [...] x 30 yrs; entered on: 05/22/21 Sex Sex Representation Female (finding) Patient Care team information Care Team Personnel Name: Thomas Lomax RN Position: [facility] ED RN W/OE and Tasks Member Role: Primary Care Nurse Name: Mandy Hightower RN Position: [facility] RN Member Role: Primary Care Nurse Name: Akosua Moses RN Position: [facility] RN Member Role: Primary Care Nurse Name: Michelle Zambrano RN Position: [facility] RN Member Role: Primary Care Nurse Name: Stacie Ortiz RN Position: [facility] SN RN Member Role: Primary Care Nurse Name: Nicole Alvarado RN Position: [facility] AMB Nurse Member Role: Primary Care Nurse Name: Saranya Muir RN Position: [facility] RN Member Role: Primary Care Nurse Name: David Gil RN Position: [facility] RN Member Role: Primary Care Nurse Name: Chirag Ramon JR, MD Position: Reference Physician Member Role: PCP Address: [address] [place] [address] Telecom: Name: Pau Olmedo RN Position: [facility] RN Member Role: Primary Care Nurse Name: Rodrigo Noel RN Position: [facility] RN Member Role: Primary Care Nurse Name: Ximena Constantino RN Position: [facility] SN RN Member Role: Primary Care Nurse Name: Kylie Wilde RN Position: [facility] RN Member Role: Primary Care Nurse Name: Domenica Ramirez RN Position: [facility] RN Member Role: Primary Care Nurse Name: Talita Roberts RN Position: [facility] RN Member Role: Primary Care Nurse Name: Klarissa Ko RN Position: [facility] RN Member Role: Primary Care Nurse Name: Ivette Osorio RN Position: [facility] RN Member Role: Primary Care Nurse Name: Alma Lott RN Position: [facility] SN RN Member Role: Primary Care Nurse Name: Elise Quick NP Position: [facility] Associate Professional Member Role: Lifetime Consulting Provider Address: [address] [facility] [address] [facility] [address] Telecom: Name: Eulalio Prado MD Position: [facility] Renal MD Member Role: Lifetime Consulting Physician Address: [address] [facility] [address] [facility] [place] [address]- Telecom: Name: Caroline Shirley RN Position: [facility] RN Member Role: Primary Care Nurse Name: Cori Landeros RN Position: [facility] RN Member Role: Primary Care Nurse Name: Chelle Ricardo RN Position: [facility] RN Member Role: Primary Care Nurse Name: Wolfgang Siddiqui RN Position: [facility] RN Member Role: Primary Care Nurse Name: Sigrid London RN Position: [facility] RN Member Role: Primary Care Nurse Name: Kelsi Kim RN Position: [facility] RN Member Role: Primary Care Nurse Name: Mireya Catherine RN Position: [facility] RN Member Role: Primary Care Nurse Name: Lizet Hilliard RN Position: [facility] RN Member Role: Primary Care Nurse Name: Magalie Grande RN Position: [facility] RN Member Role: Primary Care Nurse Name: Josefina Leonard RN Position: [facility] SN RN Member Role: Primary Care Nurse Name: Prem Barrera MD Position: [facility] Renal MD Member Role: Lifetime Consulting Physician Address: [address] [facility] [address] Telecom: Name: Alma Reyes RN Position: [facility] RN Member Role: Primary Care Nurse Name: Nayely Mercado RN Position: [facility] RN Member Role: Primary Care Nurse Name: Lata Hernandez RN Position: [facility] SN RN Member Role: Primary Care Nurse Name: Atul Molina MD Position: [facility] Renal MD Member Role: Lifetime Consulting Physician Address: [address] [facility] [address] Telecom: Name: Gema Jean Baptiste RN Position: [facility] RN Member Role: Primary Care Nurse Name: Esther Miller RN Position: [facility] RN Member Role: Primary Care Nurse Name: Siena Coleman RN Position: [facility] RN Member Role: Primary Care Nurse Name: Julia Alex RN Position: [facility] RN Member Role: Primary Care Nurse Name: Brandi Martinez RN Position: [facility] RN Member Role: Primary Care Nurse Name: Joann Moore RN Position: [facility] RN Member Role: Primary Care Nurse Name: Ramya Cook RN Position: [facility] Hospital Telemarketer Supervisor Member Role: Primary Care Nurse Care Team Related Persons Name: APRIL QUEZADA Name: HARVEY CASAS Insurance Providers Guarantor name: REID QUEZADA Health Plan Information #: 2 Payer: MEDICARE PART B OUTPT Member Number: [id number] Policy Number: NA Group Number: NA Health Plan Information #: 1 Payer: [facility] Member Number: [id number] Policy Number: NA Group Number: NA Health Plan Information #: 3 Payer: [facility] Member Number: [id number] Policy Number: NA Group Number: NA
--- OUTSIDE RECORDS SUMMARY | 2024-07-05 03:06 | XMS_ITS | Continuity of Care Document ---
Author Organization [facility] Address [address] [place] [address]- Care Team Providers Care Shuttle Van Driver Name Role Phone Yenny ROSE MD, Chirag Olivo Primary Care Physici an Encounter [facility] [place] ACCT R [id number] Date(s): 04/21/24 - 06/10/24 [facility] [address] [place] [address]- Attending Physician: Hugh Quintana MD Admitting Physician: Hugh Quintana MD Referring Physician: Chirag Ramon JR, MD Encounter Type: Pre-OutPatient One Time Allergies, Adverse Reactions, Alerts Substance Criticality Severity Reaction Reaction Severity Status morphine High criticality Severe anaphylaxis A ctive propofol anaphylaxis Active Tomatoes mouth itch Active gabapentin tardive dyskenesia Active Immunizations Given and Recorded Vaccine Date Status Refusal Reason SARS-CoV-2(COVID-19)mRNA-LNP vac([id number]) 09/08/23 Recorded influenza virus vaccine, inactivated 05/05/22 [...] 4:28:00 PM EDT, Route to Pharmacy Electronically, [facility], Partial fill upon patient [...] 0 Refills, Maintenance, 05/14/22 4:09:00PM EDT, Tablet, [facility], Partial fill upon patient [...] Refills, Maintenance, 03/21/24 4:26:00 PM EDT, Capsule, [facility], Partial fill upon [...] Refills, Soft Stop, 09/01/23 3:31:00 PM EST, [facility]/pharmacy #[id number], Partial fill upon patient request if [...] Maintenance, 04/17/22 6:01:00 PM EDT, CR Tablet, [facility] #[id number], Partial fill upon patient request if [...] team information Care Team Personnel Name: Thomas oLmax RN Position: [facility] ED RN W/OE and Tasks Member Role: Primary Care Nurse Name: Mandy Hightower RN Position: [facility] RN Member Role: Primary Care Nurse Name: Aoksua Moses RN Position: [facility] RN Member Role: Primary Care Nurse Name: Michelle Zambrano RN Position: [facility] RN Member Role: Primary Care Nurse Name: Stacie Ortiz RN Position: [facility] SN RN Member Role: Primary Care Nurse Name: Nicole Alvarado RN Position: [facility] AMB Nurse Member Role: Primary Care Nurse Name: Saranya Muir RN Position: [facility] RN Member Role: Primary Care Nurse Name: David Gil RN Position: [facility] RN Member Role: Primary Care Nurse Name: Chirag Ramon JR, MD Position: Reference Physician Member Role: PCP Address: [address] [place] [address] Telecom: Name: Pau Olmedo RN Position: [facility] RN Member Role: Primary Care Nurse Name: Rodrigo Noel RN Position: [facility] RN Member Role: Primary Care Nurse Name: Ximena Constantino RN Position: [facility] SN RN Member Role: Primary Care Nurse Name: Kylie Wilde RN Position: [facility] RN Member Role: Primary Care Nurse Name: Domenica Ramirez RN Position: [facility] RN Member Role: Primary Care Nurse Name: Talita Roberts RN Position: [facility] RN Member Role: Primary Care Nurse Name: Klarissa Ko RN Position: [facility] RN Member Role: Primary Care Nurse Name: Ivette Osorio RN Position: [facility] RN Member Role: Primary Care Nurse Name: Alma Lott RN Position: [facility] SN RN Member Role: Primary Care Nurse Name: Elise Quick NP Position: [facility] Associate Professional Member Role: Lifetime Consulting Provider Address: [address] [facility] [place] [place] [address]- [place] Telecom: Name: Eulalio Prado MD Position: [facility] Renal MD Member Role: Lifetime Consulting Physician Address: [address] [facility] [place] [place] [address]- [place] Telecom: Name: Caroline Shirley RN Position: [facility] RN Member Role: Primary Care Nurse Name: Cori Landeros RN Position: [facility] RN Member Role: Primary Care Nurse Name: Chelle Ricardo RN Position: [facility] RN Member Role: Primary Care Nurse Name: Wolfgang Siddiqui RN Position: [facility] RN Member Role: Primary Care Nurse Name: Sigrid London RN Position: [facility] RN Member Role: Primary Care Nurse Name: Kelsi Kim RN Position: [facility] RN Member Role: Primary Care Nurse Name: Mireya Catherine RN Position: [facility] RN Member Role: Primary Care Nurse Name: Lizet Hilliard RN Position: [facility] RN Member Role: Primary Care Nurse Name: Magalie Grande RN Position: [facility] RN Member Role: Primary Care Nurse Name: Josefina Leonard RN Position: [facility] SN RN Member Role: Primary Care Nurse Name: Prem Barrera MD Position: [facility] Renal MD Member Role: Lifetime Consulting Physician Address: [address] [facility] [place] [address]- [place] Telecom: Name: Alma Reyes RN Position: [facility] RN Member Role: Primary Care Nurse Name: Nayely Mercado RN Position: [facility] RN Member Role: Primary Care Nurse Name: Lata Hernandez RN Position: [facility] SN RN Member Role: Primary Care Nurse Name: Atul Molina MD Position: [facility] Renal MD Member Role: Lifetime Consulting Physician Address: [address] [facility] [address] [facility] [address] Telecom: Name: Gema Jean Baptiste RN Position: [facility] RN Member Role: Primary Care Nurse Name: Esther Miller RN Position: [facility] RN Member Role: Primary Care Nurse Name: Siena Coleman RN Position: [facility] RN Member Role: Primary Care Nurse Name: Julia Alex RN Position: [facility] RN Member Role: Primary Care Nurse Name: Brandi Martinez RN Position: [facility] RN Member Role: Primary Care Nurse Name: Joann Moore RN Position: [facility] RN Member Role: Primary Care Nurse Name: Ramya Cook RN Position: [facility] Cheese Packer Member Role: Primary Care Nurse Care Team Related Persons Name: APRIL QUEZADA Name: AUGUSTO, HARVEY Insurance Providers Guarantor name: REID QUEZADA Health Plan Information #: 2 Payer: MEDICARE PART B OUTPT Member Number: [id number] Policy Number: NA Group Number: NA Health Plan Information #: 3 Payer: [facility] Member Number: [id number] Policy Number: NA Group Number: NA Health Plan Information #: 1 Payer: [employer] [facility] Member Number: [id number] Policy Number: NA Group Number: NA
--- OUTSIDE RECORDS SUMMARY | 2024-07-05 03:06 | XMS_ITS ---
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 [facility] [place] Address [address] [place] [id number] Care Team Providers Care Vessel Builder Name Role Phone ROMANA CASTILLO Primary Care Provider Unav ailable Insurance Providers: All historical and current Section Date Range: From patient's date of to the date document was created. This section includes the names of all active insurance providers for the patient. Insurance Provider Type of Coverage Plan Name Start of Policy Coverage End of Policy Coverage Group Number Member ID Insurance Provider's Telephone Number Policy Garcia's Name Patient's Relationship to Policy Garcia [facility] (MEDICAID) [facility] May 14, 2009 [id number] SAMPLE,ROCCO MOORE PATIENT [facility] MEDICAID [facility] May 14, 2009 [id number] SAMPLE,ROCCO MOORE PATIENT MEDICAID MEDICAID [facility] EAH ENRICO ESTEFANY Jul 26, 2018 MEDICAI D [id number] SAMPLE,ROCCO MOORE PATIENT MEDICARE (WNR) MEDICARE (M) PART A November 24, 2015 PART A [id number] SAMPLE,ROCCO MOORE PATIENT MEDICARE (WNR) MEDICARE (M) PART B November 24, 2015 PART B [id number] SAMPLE,ROCCO MOORE PATIENT Selected Encounter This section includes the information on record at [place] for the Encounter. Date/Time Encounter Type Encounter Description Reason Provider Source Jul 05, 2023 02:00 PM OFFICE O/P EST HI 40-54 [facility] ICD-10-CM G89.29 Other chronic pain KUPFERSCHMID,S ETH B IHE Encounter Template Text not used by [place] Assessments - Encounter Diagnoses This section includes the primary and secondary diagnoses documented for the Encounter. Date/Time Primary/Secondary Diagnosis Diagnosis Name Provider Source Jul 06, 2023 08:44 AM PRIMARY Other chronic pain KYLE JIANG [place] [facility] [place] [facility] Plan of Treatment: Future Appointments (+ 6 months) and Future Tests (+/- 45 days) The Plan of Treatment section includes future care activities for the patient from all [place] treatmentfacilities. This section includes future appointments and future orders which are active, pending or scheduled. Future Appointments This section includes appointments that were scheduled to occur 6 months from the date of the Encounter, up to a maximum of 20 appointments. The data comes from all [place] treatment facilities. Appointment Date/Time Appointment Type Appointme nt Facility Name Jul 08, 2023 11:00 AM AM[place]ULATORY - [place] [facility] [place] [facility] Jul 15, 2023 08:00 AM AM[place]ORY [place] [facility] [place] [facility] Aug 05, 2023 04:00 PM AMBULATORY - [place]IATRY [facility] [place] [facility] Aug 18, 2023 12:00 PM [place]ORY [place] [facility] [place] [facility] Sep 08, 2023 01:00 PM [place]ORY [place] [facility] [place] [facility] Sep 08, 2023 01:30 PM [place] [facility] [place] [facility] Oct 06, 2023 09:00 AM AM[place]ORY [place] [facility] [place] [facility] Oct 07, 2023 01:00 PM AMBULATORY - [place]AT[place] [facility] [place] [facility] Oct 25, 2023 11:00 AM [place] [facility] [place] [facility] Nov 09, 2023 09:00 AM [place] [facility] [place] [facility] Nov 17, 2023 09:30 AM [place] [facility] [place] [facility] Jan 03, 2024 11:00 AM [facility] Social History: Smoking Status (Most current) and Tobacco Use (All prior to encounter date) This section includes the most current, and the historical, smoking and tobacco- related health factors from the [place] facility where the Encounter took place. Current Smoking Status This section includes the most current smoking, or tobacco-related health factor, from the [place] facility where the Encounter took place. Date/Time Current Smoking Status Comment Facil it Mar 31, 2023 11:00 AM VA-TOBACCO FOR[facility]ER [facility] Tobacco Use History This section includes a history of the smoking, or tobacco-related health factors, that were collected on or before the date of the Encounter. The data comes from the [place] facility where the Encounter took place. Date/Time Smoking Status/Tobac co Use Comment Facility Mar 31, 2023 11:00 AM VA-TOBACCO QUIT 1 TO < 5 YRS [facility] [place] [facility] Mar 25, 2022 10:30 AM VA-TOBACCO [facility] Mar 19, 2021 02:00 PM VA-TOBACCO FORMER USER [facility] [place] [facility] Mar 19, 2021 02:00 PM VA-TOBACCO QUIT < 1 YEAR [facility] [place] [facility] Sep 20, 2018 11:24 AM VA-TOBACCO USE DECLINED TO ANSWER [facility] [place] [facility] Oct 21, 2017 08:13 AM QUIT TOBACCO USE IN PAST YEAR [facility] [place] [facility] Dec 30, 2016 08:28 AM QUIT TOBACCO USE 1-7 YEARS AGO [facility] [place] [facility] Jun 04, 2016 08:43 AM QUIT TOBACCO USE 1-7 YEARS AGO [facility] [place] [facility] May 17, 2015 08:45 AM QUIT TOBACCO USE 1-7 YEARS AGO quit 2 years ago. [facility] [place] [facility] Jun 07, 2014 09:25 AM QUIT TOBACCO USE 1-7 YEARS AGO [facility] [place] [facility] November 30, 2013 08:44 AM QUIT TOBACCO USE IN PAST YEAR [facility] [place] [facility] May 22, 2013 10:10 AM QUIT TOBACCO USE IN PAST YEAR [facility] [place] [facility] December 01, 2012 01:54 PM QUIT TOBACCO USE IN PAST YEAR [facility] [place] [facility] Jun 07, 2012 08:16 AM V1-PT DECLINES TOBACCO CESSATION MEDS [facility] [place] [facility] Jun 07, 2012 08:16 AM V1-PT THINKING ABOUT QUIT TOBACCO USE [facility] [place] [facility] Jan 05, 2012 09:00 AM CURRENT SMOKER intermittenly [facility] [place] [facility] Jan 05, 2012 09:00 AM V1-PT DECLINES REF TO TOBACCO CESS PRGM [facility] [place] [facility] Jan 05, 2012 09:00 AM V1-PT DECLINES TOBACCO CESSATION MEDS [facility] [place] [facility] Jan 05, 2012 09:00 AM V1-PT THINKING ABOUT QUIT TOBACCO USE [facility] [place] [facility] Feb 17, 2011 09:52 AM V1-PT DECLINES TOBACCO CESSATION MEDS [facility] [place] [facility] Feb 17, 2011 09:52 AM V1-PT THINKING ABOUT QUIT TOBACCO USE [facility] [place] [facility] Aug 13, 2010 11:31 AM QUIT TOBACCO USE IN PAST YEAR [facility] [place] [facility] Feb 19, 2010 01:26 PM QUIT TOBACCO USE IN PAST YEAR [facility] [place] [facility] Sep 13, 2009 11:04 AM QUIT TOBACCO USE IN PAST YEAR [facility] [place] [facility] Feb 05, 2009 08:29 AM V1-PT DECLINES REF TO TOBACCO CESS [facility] [place] [facility] Feb 05, 2009 08:29 AM V1-PT DECLINES TOBACCO CESSATION MEDS [facility] [place] [facility] Feb 05, 2009 08:29 AM V1-PT THINKING ABOUT QUIT TOBACCO USE [facility] [place] [facility] Aug 22, 2008 09:04 AM QUIT TOBACCO USE IN PAST YEAR [facility] [place] [facility] Mar 12, 2008 10:40 AM V1-PT DECLINES REF TO TOBACCO CESS [facility] Mar 12, 2008 10:40 AM V1-PT DECLINES TOBACCO CESSATION [facility] Mar 12, 2008 10:40 AM V1-PT NOT INTERESTED IN QUIT TOBACCO USE [facility] Mar 08, 2008 09:37 AM CURRENT SMOKER smokes one pack a day for about 10 years ago. [facility] Encounter Notes: All associated encounter notes This section contains the clinical notes associated to the Encounter. Date/Time Encounter Note(s) Provider Source Jul 05, 2023 02:00 PM PAIN CONSULT: LOCAL TITLE: CONSULT REPORT/PAIN SCHOOL STANDARD TITLE: PAIN CONSULT DATE OF NOTE: JUL 05, 2023@14:00 ENTRY DATE: JUL 06, 2023@08:37:34 AUTHOR: KYLE JIANG EXP COSIGNER: URGENCY: STATUS: COMPLETED CONSULT REPORT/PAIN SCHOOL Has ADDENDA [employer] Pain Education Class Provider/s facilitating todays session: MD Kyle Steward, PT, DPT Number of Veterans in attendance for todays session: 3 Length of session: 120 minutes == participated in [employer] [facility] Pain Education Class via [facility]. The was provided with information on [facility] and has given verbal consent to use group [facility] services for their healthcare. The copy of the Group Telehealth Agreement was mailed to the . The [place]'s location/emergency contact number were confirmed. The Emergency Call Relay Center (E911) was available. The visit was locked for security and privacy. identified with 2 identifiers: [x] Full Name [x] Address == [place] confirmed their willingness and interest in attending this [employer] [employer] group class. [place] has acknowledged awareness and acceptance of: 1. The privacy restraints regarding participation in group sessions. 2. The need for respectful behavior toward other participants and providers. 3. The need to focus discussion to specific topics discussed during the session. == Summary of [facility] Relief: attended [facility] - Train Your Brain Away From Pain - a single session evidence- and skill-based class. During the class, learned the following skills: 1. How pain is processed in the brain and how to best manage it. 2. How to use a guided relaxation exercise to reduce the pain and stress response. provided with a binaural audiofile with a guided relaxation exercise. [place] was encouraged to practice this relaxation exercise daily for at least 2 months (can taper to less frequently afterwards). 3. How to counteract their unhelpful pain thoughts, which can worsen pain, by practicing positive or neutral thought reframing. 4. How to develop and utilize a list of self-soothing actions which can be used to interrupt negative pain thoughts and the pain response. At the end of the class, created their own Personalized Plan for pain relief which included the following items: 1) how often they will use the guided relaxation exercise, 2) a list of their most significant unhelpful pain thoughts and then a reframe of these unhelpful pain thoughts using the best friend talk technique and 3) a list of positive self-soothing actions which are used to interrupt the pain response. == Additional comments: Reid was engaged throughout today's class although somewhat distracted at times by her 9 month old puppy. She was unable to find her packet and was encouraged to use a blank sheet of paper to complete her personalized plan for pain relief. She shared that taking deep breaths can be challenging given her use of supplemental oxygen but noted that both her stress and muscle tension ratings reduced after the relaxation practice. She shared this also helped her anxiety. She shared an unhelpful thought and acknowledged that it was difficult for her to think of a neutral reframe. At the end of the session she asked about additional pain management services and expressed interest in joining a future AMP group. /isabella JIANG DPT PHYSICAL THERAPIST Signed: 07/06/2023 08:44 07/06/2023 ADDENDUM STATUS: COMPLETED Assessments were sent to the via text/email. These assessments were completed by REID QUEZADA on their own device on 07/05/2023 4:01:38 PM. PAIN, ENJOYMENT OF LIFE AND GENERAL ACTIVITY (PEG) Patient rated the following on a scale from 0 to 10, over the past week: 1. Average pain (0=No pain - 10=Pain as bad as you can imagine): 8 2. Pain interference with enjoyment of life (0=Does not interfere - 10=Completely Interferes): 10 3. Pain interference with general activity (0=Does not interfere - 10=Completely Interferes): 9 PEG Average Score: 9 Scores are an average of the 3 items and range from 0 to 10. Higher scores represent worse pain. /siabella JIANG DPT PHYSICAL THERAPIST Signed: 07/06/2023 08:45 KYLE JIANG [facility]
--- OUTSIDE RECORDS SUMMARY | 2024-07-05 03:06 | XMS_ITS | Continuity of Care Document ---
Author Name [facility] Organization [facility] Care Team Providers Care Operations Label Clerk Name Role Phone [facility] Unavailable Unavailable Problems Combined list of problems from Department of Defense and Veterans Affairs facilities. It does not include entries that were removed or entered in error. Problem Status Onset Date Problem Type Date of Resolution Comments Source AF- Atrial Fibrillation ([facility] 67934356) Active Condition Jan 26, 2024 Entered By: IRENE CASTILLO Comment: vet had eval per Dr Salcedo/ [facility] 2021 for afib/started on apixiban and in 2023-vet elected to stop this med on her ownJul 2023 Entered By: IRENE CASTILLO Comment: ECG in 2022 and 2023- NSR/ no afib [facility]xiety disorder Active Condition [facility] - Congestive cardiac failure Active Condition [facility] Chronic pain Active Condition [facility] COPD - Chronic obstructive pulmonary disease Active Condition Oct 18 Entered By: IRENE CASTILLO Comment: Dr Grewal [facility] pulm/ vet is O2 dependent- per pulcass ORDAZ- stable 2/6 syst murmur [facility] Drug abuse Active Condition Jul 01 018 Entered By: TAMRA STRAUSS Comment: requests early/outside refills of benzos and modafinil. NO EARLY REFILLS/REPLACEM ENT MEDS TO BE ORDERED [facility] Edema Active Condition [facility] Extreme obesity with alveolar hypoventilation Active Condition Mar 22, 2018 Entered By: TAMRA STRAUSS Comment: improved with BiPAP [facility] Gastroesophageal Reflux Disorder Active Condition [facility] Haematoma of lower leg Active Condition Sep 08, 2023 Entered By: IRENE CASTILLO Comment: left alexander lesin with slightly open area/vet will benefit from VNA and wound care eval in near future [facility] Hypertension (SNOMED CT 64806986) Active Condition [facility] Hysterectomy Active Condition Jan 03, 2009 Entered By: WENDY MADSEN Comment: -- 1994 in [place] for endometriosis, comp ov cyst [facility] Impaired fasting glucose Active Condition [facility] Inflammatory bowel disease Active Condition December 13, 2008 Entered By: WENDY MADSEN Comment: -- last colonoscopy 06/05, mucosal ulceration, repeat 06/08Sep 2013 Entered By: WENDY MADSEN Comment: previously reported as UC, but has had ileal diseaseMar 2014 Entered By: WENDY MADSEN Comment: colonoscopy 10/07: mild colitis; repeat due 10/09 [facility] Injury to the Muscles of the Hand (Group IX Function: Forearm Muscles) (ICD-9-CM Active Condition [facility] Limited mobility Active Condition December 08, 2023 Entered By: IRENE CASTILLO Comment: vet dependent on power scooter- multifactorial [facility] Long-term current use of anticoagulant Active Condition [facility] Microalbuminuria Active Condition Mar 06, 2024 Entered By: IRENE CASTILLO Comment: no diabetes/longsta nding HTN- 2023 [facility] Microscopic hematuria Active Condition Apr 16, 2014 Entered By: WENDY MADSEN Comment: noted 03/08 [facility] Myocardial infarction Active Condition May 05, 2022 Entered By: WENDY MADSEN Comment: -- acute NSTEMI 05/03/22 [facility] Obesity Active Condition [facility] Opioid dependence (SNOMED CT [id number]) Active Condition Jun 27, 2018 Entered By: TAMRA STRAUSS Comment: Subox[place] in community [facility] [place] [facility] Osteoarthritis of knee Active Condition Oct 25, 2014 Entered By: WENDY MADSEN Comment: -- steroid injection to left knee 10/07 Dr. Singleton [facility] Osteomyelitis of right femur Active Condition [facility] Polycythemia vera Active Condition Oc t 2016 Entered By: LONG VARELA Comment: not using her CPAP oin Morbid obesity with ALEKSEY and CPD n [facility] Pulmonary hypertension Active Condition Aug 11, 2017 Entered By: LONG VARELA Comment: mild on echo 07/2017 [facility] Simple renal cyst Active Condition Au g 2023 Entered By: IRENE CASTILLO Comment: on U/S at [facility]. repeat Aug 2024 / vet wants to plan this thru community PCP [facility] Sleep apnea (SNOMED CT 66099325) Active Condition Aug 18, 2016 Entered By: WENDY MADSEN Comment: -- treated with CPAP, needs clonazepam to tolerate it [facility] Tobacco dependence, continuous (SNOMED CT 928205318) Active Condition Aug 11, 2017 Entered By: LONG VARELA Comment: persists to smoke - 08/08/2017 admitted at [facility] with COPD exacerbation [facility] Varicose Veins (ICD-9-CM 454.9) Active Condition [facility] Acute bronchitis Inactive Condition 08/06/2008 Se p 24, 2007 Entered By: WENDY MADSEN Comment: exacerbation 04/02 [facility] [place] [facility] Acute exacerbation of chronic obstructive airways disease Inactive Condition 02/24/2018 Aug 11, 2017 Entered By: LONG VARELA Comment: 08/05/17 through 08/08/17 admitted at [facility] for exacerbation. Still smoking [facility] Ankle: arthralgia * (ICD-9-CM 719.47) Inactive Condition 08/18/2016 [facility] [place] [facility] Asthma (SNOMED CT 941412334) Inactive Condition 02/24/2018 Apr 19, 2008 Entered By: WENDY MADSEN Comment: intermittent with severe exacerbations [facility] [place] [facility] Candidiasis, Oral Inactive Condition 02/24/[facility] [place] [facility] Contact dermatitis due to plants Inactive Condition 08/18/2016 [facility] Counseling on Substance Use and Abuse (ICD-9-CM V65.42) Inactive Condition 08/06/2008 [facility] [place] [facility] Derangement of meniscus Inactive Condition 08/18/2016 Oct 25, 2014 Entered By: WENDY MADSEN Comment: -- left knee torn medial meniscus 09/09 [facility] [place] [facility] Dyspnea Inactive Condition 02/24/2018 Aug 11, 2 018 Entered By: LONG VARELA Comment: admit 08/05/17 -08/08/17 at [facility]: COPD exacerbation , CHo also showed than mild pulmonary HTN , so question of a degree of cor pulmonale though had NL LVF , mild R cadiac chamber dilated [facility] Edema * (ICD-9-CM 782.3) Inactive Condition 02/24/2018 [facility] [place] [facility] Encounter for Vocational Therapy (ICD-9-CM V57.22) Inactive Condition 01/03/2009 [facility] Hyperglycemia Inactive Condition 06/27/2018 Apr 262016 Entered By: LONG VARELA Comment: 6.8% [facility] February 2017 .Patient prefesr to recheck her l [facility] [place] [facility] Hypovolemia Inactive Condition 02/24/2018 Aug 11, 2017 Entered By: LONG VARELA Comment: 08/05/2017 -admitted to [facility] as self increased her lasix to 320 mg /day - when she had COPD exacerbation- seft[facility] as volume [facility] [place] [facility] Hypoxemia Inactive Condition 03/22/2018 May 20, 2 017 Entered By: LONG VARELA Comment: 05/20/2017 walking 73% and rest O2 85% at [facility] . Using [facility] Obesity (SNOMED CT 344121128) Inactive Condition 06/27/2018 [facility] Opioid type dependence, in remission Inactive Condition 08/15/2014 Jan 11, 2014 Entered By: NANDINI TOMLINSON Comment: update [facility] Standard chest X-ray abnormal Inactive Condition 02/24/2018 Jan 07, 2016 Entered By: WENDY MADSEN Comment: -- 01/08 pt declined recommended contrast chest CT [facility] Diagnosis: ICD-10-CM G89.4 Chronic pain syndrome Active Diagnosis [facility] Diagnosis: ICD-10-CM F41.9 Anxiety disorder, unspecified Active Diagnosis [facility] Diagnosis: ICD-10-CM Z23 Encounter for immunization Active Diagnosis [facility] Diagnosis: ICD-10-CM I50.9 Heart failure, unspecified Active Diagnosis [facility] Diagnosis: ICD-10-CM J44.9 Chronic obstructive pulmonary disease, unspecified Active Diagnosis [facility] Diagnosis: ICD-10-CM I10 Essential (primary) hypertension Active Diagnosis [facility] Diagnosis: ICD-10-CM E87.5 Hyperkalemia Active Diagnosis [facility] Diagnosis: ICD-10-CM G47.39 Other sleep apnea Active Diagnosis [facility] Diagnosis: ICD-10-CM Z71.89 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ed counseling Active Diagnosis [facility] Diagnosis: ICD-10-CM G47.30 Sleep apnea, unspecified Active Diagnosis [facility] Diagnosis: ICD-10-CM G89.29 Other chronic pain Active Diagnosis [facility] Diagnosis: ICD-10-CM Z04.89 Encounter for examination and observation for oth reasons Active Diagnosis [facility] Diagnosis: ICD-10-CM E66.9 Obesity, unspecified Active Diagnosis [facility] Medications Combined list of outpatient medications from Department of Defense and Veterans Affairs facilities.Medications provided include 1) outpatient medications from the last 15 months, and 2) patient-reported medications. Medication Details Route Status Patient Instructions Prescription Expires Prescription Number Last Dispense Date Ordering Provider Order Date Order Qty Source ALBUTEROL 100MCG/IPRA TROPIUM BR 20MCG/SPRAY INHALER,ORA L,4GM INHALE 1 PUFF BY MOUTH FOUR TIMES A DAY AFTER MEALS AND AT BEDTIME RESPIR ATORY (INHAL ATION) ACTIVE GARDUNO,AL ICE 2022 [facility] APIXABAN 5MG TAB TAKE ONE TABLET BY MOUTH EVERY 12 HOURS FOR PREVENTI ON OF BLOOD CLOTS ORAL DISCONT INUED BY PROVIDE R 04/05/2024 [id number] [facility]OD 2022 [facility] AT[facility] N CA 80MG TAB TAKE ONE TABLET BY MOUTH ONCE DAILY FOR CHOLESTE ROL ORAL ACTIVE 08/26/2024 [id number] FAYE FLOOD 2023 90 [facility] [place] N CA 80MG TAB TAKE ONE TABLET BY MOUTH ONCE DAILY FOR CHOLESTE ROL ORAL DISCONT INUED (EDIT) 09/17/2023 [id number] SORAIDA MADSEN LLIACass S [address] [facility] BUPRENORPHI NE HCL 2MG TAB,SUBLING UAL DISSOLVE TWO TABLETS UNDER THE TONGUE FOUR TIMES A DAY SUBLIN GUAL ACTIVE 11/25/2024 [id number] 4 SORAIDA MADSEN LLIAM S 2023 240 [facility] [place] NE HCL 2MG TAB,SUBLING UAL DISSOLVE TWO TABLETS UNDER THE TONGUE FOUR TIMES A DAY SUBLIN GUAL DISCONT INUED 05/19/2024 [id number] SORAIDA MADSEN LLIAM S 2023 240 [facility] [place] NE HCL 2MG TAB,SUBLING UAL DISSOLVE ONE TABLET UNDER THE TONGUE FOUR TIMES A DAY SUBLIN GUAL DISCONT INUED (EDIT) 12/25/2023 [id number] SORAIDA MADSEN LLIAM S 2022 120 [facility] [place] NE HCL 2MG TAB,SUBLING UAL DISSOLVE ONE TABLET UNDER THE TONGUE THREE TIMES A DAY SUBLIN GUAL DISCONT INUED (EDIT) 08/21/2023 [id number] 3 SORAIDA MADSEN LLIAM S 2022 90 [facility] CHOLECALCIF LEVI 10MCG (400UNIT) TAB TAKE ONE TABLET BY MOUTH ONCE DAILY FOR VITAMIN D DEFICIEN CY ORAL 01/04/2024 [id number] SORAIDA MADSEN LLIAM S 2023 90 [facility] CHOLECALCIF LEVI 50MCG (2,000UNIT) TAB TAKE ONE TABLET BY MOUTH ONCE DAILY FOR VITAMIN SUPPLEME NTATION ORAL ACTIVE 03/07/2025 [id number] FAYE FLOOD 2023 100 [facility] CLONAZEPAM 0.5MG TAB TAKE TWO TABLETS BY MOUTH ONCE DAILY AND TAKE ONE TABLET TWICE DAILY NEEDED ANXIETY ORAL ACTIVE 11/15/2024 [id number] JAMIE HAWKINS MD 2023 120 [facility] CLONAZEPAM 0.5MG TAB TAKE TWO TABLETS BY MOUTH ONCE DAILY AND TAKE ONE TABLET TWICE DAILY NEEDED ORAL DISCONT INUED (EDIT) 10/14/2024 [id number] 4 JAMIE HAWKINS MD 2023 120 [facility] CLONAZEPAM 0.5MG TAB TAKE TWO TABLETS BY MOUTH ONCE DAILY AND TAKE ONE TABLET TWICE DAILY NEEDED ORAL DISCONT INUED (EDIT) 08/16/2024 [id number] JAMIE HAWKINS MD 2023 120 [facility] CLONAZEPAM 0.5MG TAB TAKE TWO TABLETS BY MOUTH ONCE DAILY AND TAKE ONE TABLET TWICE DAILY NEEDED FOR ANXIETY ORAL DISCONT INUED (EDIT) 07/05/2024 [id number] JAMIE HAWKINS MD 2023 120 [facility] CLONAZEPAM 0.5MG TAB TAKE TWO TABLETS BY MOUTH ONCE DAILY AND TAKE ONE TABLET TWICE DAILY NEEDED FOR ANXIETY ([place] - NEXT FILL 01/20/24) ORAL DISCONT INUED (EDIT) 01/15/2024 [id number] JAMIE HAWKINS MD 2023 28 [facility] CLONAZEPAM 0.5MG TAB TAKE ONE TABLET BY MOUTH EVERY MORNING AND TAKE ONE-HALF TABLET TWICE DAILY NEEDED FOR ANXIETY ORAL DISCONT INUED 04/08/2024 [id number] JAMIE HAWKINS MD 2023 60 [facility] CLONAZEPAM 0.5MG TAB TAKE ONE TABLET BY MOUTH EVERY MORNING AND TAKE ONE-HALF TABLET TWICE DAILY NEEDED ANXIETY ORAL DISCONT INUED (EDIT) 02/05/2024 [id number] 4 JAMIE HAWKINS MD 2023 60 [facility] CLONAZEPAM 0.5MG TAB TAKE ONE TABLET BY MOUTH EVERY MORNING AND TAKE ONE-HALF TABLET TWICE DAILY NEEDED ORAL DISCONT INUED (EDIT) 01/01/2024 [id number] JAMIE HAWKINS MD 2022 28 [facility] CLONAZEPAM 0.5MG TAB TAKE ONE TABLET BY MOUTH EVERY MORNING AND TAKE ONE-HALF TABLET TWICE DAILY NEEDED ORAL DISCONT INUED (EDIT) 12/15/2023 [id number] 3 JAMIE HAWKINS MD 2022 60 [facility] CLONAZEPAM 0.5MG TAB TAKE ONE TABLET BY MOUTH EVERY MORNING AND TAKE ONE-HALF TABLET TWICE DAILY NEEDED ORAL DISCONT INUED (EDIT) 10/01/2023 [id number] JAMIE HAWKINS MD 2022 60 [facility] CLONAZEPAM 1MG TAB TAKE ONE TABLET BY MOUTH TWICE DAILY ORAL 05/13/2024 [id number] FAYE FLOOD 2023 6 [facility] DILTIAZEM (EQV-TIAZAC AB4) 180MG 24HR CAP TAKE ONE CAPSULE BY MOUTH ONCE DAILY ORAL DISCONT INUED (EDIT) 08/12/2024 [id number] FAYE FLOOD 2023 90 [facility] DILTIAZEM (EQV-TIAZAC AB4) 180MG 24HR CAP TAKE ONE CAPSULE BY MOUTH ONCE DAILY ORAL DISCONT INUED 08/11/2023 [id number] SORAIDA MADSEN S 2022 90 [facility] DILTIAZEM (EQV-TIAZAC AB4) 240MG 24HR CAP TAKE ONE CAPSULE BY MOUTH ONCE DAILY ORAL ACTIVE 09/08/2024 [id number] FAYE FLOOD 2023 90 [facility] DIPHTHERIA TOXOID 2UNT/TETANU S TOXOID 5UNT/0.5ML ADSORBED INJ INJECT 0.5ML INTRAMUS CULARLY NOW INTRAM USCULA R ACTIVE WILLIAM HE 2018 [facility] FERROUS GLUCONATE 324MG TAB TAKE ONE TABLET BY MOUTH ONCE DAILY TO SUPPLEME NT IRON ORAL ACTIVE 03/07/2025 [id number] FAYE FLOOD 2023 100 [facility] LISINOPRIL 30MG TAB TAKE TWO TABLETS BY MOUTH ONCE DAILY TO CONTROL BLOOD PRESSURE ORAL ACTIVE 01/17/2025 [id number] 4 FAYE FLOOD 2023 180 [facility] LISINOPRIL 40MG TAB TAKE ONE TABLET BY MOUTH ONCE DAILY TO CONTROL BLOOD PRESSURE ORAL DISCONT INUED (EDIT) 08/26/2024 [id number] BipinFAYE ROMAN 2023 90 [facility] LISINOPRIL 40MG TAB TAKE ONE TABLET BY MOUTH ONCE DAILY TO CONTROL BLOOD PRESSURE ORAL DISCONT INUED (EDIT) 04/15/2024 [id number] JENNY LEZAMA 2022 90 [facility] OMEPRAZOLE 20MG CAP,EC TAKE 1 CAPSULE BY MOUTH ONCE DAILY ORAL ACTIVE SORAIDA MADSEN S 2022 [facility] OXYCODONE HCL 10MG/ACETAM INOPHEN 325MG TAB TAKE 1 TABLET BY MOUTH FOUR TIMES DAILY NEEDED FOR PAIN ORAL ACTIVE 07/16/2024 [id number] EDDI PARKJESSIKA B 2023 112 [facility] OXYCODONE HCL 10MG/ACETAM INOPHEN 325MG TAB TAKE 1 TABLET BY MOUTH FOUR TIMES DAILY NEEDED NEXT FILL 07/20 ORAL DISCONT INUED BY PROVIDE R 07/15/2024 [id number] SORAIDA MADSEN S 2023 112 [facility] OXYCODONE HCL 10MG/ACETAM INOPHEN 325MG TAB TAKE 1 TABLET BY MOUTH FOUR TIMES DAILY NEEDED FOR PAIN ORAL DISCONT INUED 06/24/2024 [id number] SORAIDA MADSEN S 2023 112 [facility] OXYCODONE HCL 10MG/ACETAM INOPHEN 325MG TAB TAKE 1 TABLET BY MOUTH THREE TIMES DAILY NEEDED ORAL DISCONT INUED 06/15/2024 [id number] SORAIDA MADSENIACass S 2023 30 [facility] OXYCODONE HCL 5MG TAB TAKE TWO TABLETS BY MOUTH THREE TIMES DAILY NEEDED FOR PAIN (NEXT FILL 06/09/24 ) ORAL ACTIVE 06/09/2024 [id number] SORAIDA MADSEN LLIAM S 2023 180 [facility] OXYCODONE HCL 5MG TAB TAKE TWO TABLETS BY MOUTH FOUR TIMES DAILY NEEDED FOR PAIN ORAL DISCONT INUED 04/05/2024 [id number] [facility]ESS[facility] B 2023 224 [facility] OXYCODONE HCL 5MG TAB TAKE FOUR TABLETS BY MOUTH THREE TIMES DAILY NEEDED FOR PAIN [NEXT FILL 4] ORAL DISCONT INUED (EDIT) 02/03/2024 [id number] SORAIDA MADSEN LLIAM S 2023 336 [facility] OXYCODONE HCL 5MG TAB TAKE FOUR TABLETS BY MOUTH THREE TIMES DAILY NEEDED FOR PAIN [NEXT FILL 4] ORAL DISCONT INUED 01/06/2024 [id number] SORAIDA MADSENIAM S 2023 336 [facility] OXYCODONE HCL 5MG TAB TAKE FOUR TABLETS BY MOUTH FOUR TIMES DAILY NEEDED FOR PAIN [NEXT FILL 11/05/19 24] ORAL DISCONT INUED 11/05/2023 [id number] SORAIDA MADSEN LLIAM S 2023 448 [facility] OXYCODONE HCL 5MG TAB TAKE FOUR TABLETS BY MOUTH FOUR TIMES DAILY NEEDED FOR PAIN [NEXT FILL 4] ORAL DISCONT INUED 10/22/2023 [id number] SORAIDA MADSEN LLIAM S 2023 240 [facility] OXYCODONE HCL 5MG TAB TAKE FOUR TABLETS BY MOUTH FOUR TIMES DAILY NEEDED FOR PAIN [NEXT FILL 09/24/2023 ] ORAL DISCONT INUED 10/08/2023 [id number] EDWINPAM,WI LLIAM S 2023 240 [facility] OXYCODONE HCL 5MG TAB TAKE TWO TABLETS BY MOUTH FOUR TIMES DAILY NEEDED FOR PAIN [NEXT FILL 09/21/23 ] ORAL DISCONT INUED 09/17/2023 [id number] EDWINLER,W[place] LLIAM S 2023 224 [facility] OXYCODONE HCL 5MG TAB TAKE TWO TABLETS BY MOUTH FOUR TIMES DAILY NEEDED FOR PAIN [NEXT FILL 08/24/23] ORAL DISCONT INUED 08/26/2023 [id number] EDWINPAM,W[place] LLIAM S 2023 224 [facility] OXYCODONE HCL 5MG TAB TAKE TWO TABLETS BY MOUTH EVERY 4 HOURS NEEDED FOR PAIN NEXT FILL 05/20/23 ORAL DISCONT INUED (EDIT) 05/21/2023 [id number] EDWINPAMWI LLIAM S 2022 336 [facility] OXYCODONE HCL 5MG TAB TAKE TWO TABLETS BY MOUTH FOUR TIMES DAILY NEEDED NEXT FILL 04/17 ORAL 04/29/2024 [id number] LAURA KHANH B 2023 112 [facility] OXYCODONE HCL 5MG TAB TAKE TWO TABLETS BY MOUTH FOUR TIMES DAILY NEEDED FOR PAIN [NEXT FILL 03/01/2024 ] ORAL 02/25/2024 [id number] EDWINPAMWI LLIAM S 2023 224 [facility] OXYCODONE HCL 5MG TAB TAKE FOUR TABLETS BY MOUTH THREE TIMES DAILY NEEDED FOR PAIN [NEXT FILL 4] ORAL 12/04/2023 [id number] EDWINPAM,WI LLIAM S 2023 336 [facility] OXYCODONE HCL 5MG TAB TAKE TWO TABLETS BY MOUTH FOUR TIMES DAILY NEEDED FOR PAIN [NEXT FILL 07/22/23 ] ORAL 07/24/2023 [id number] CUTLER,WI LLIAM S 2022 224 [facility] OXYCODONE HCL 5MG TAB TAKE TWO TABLETS BY MOUTH FIVE TIMES A DAY FOR PAIN NEXT FILL 06/17/23 ORAL 06/12/2023 [id number] CUTLER,WI LLIAM S 2022 280 [facility] OXYGEN MISCELLANEO US USE DIRECTED NOT APPLIC ABLE ACTIVE CUTLER,WI LLIAM S 2012 [facility] SULFAMETHOX AZOLE 800MG/TRIME THOPRIM 160MG TAB TAKE ONE TABLET BY MOUTH TWICE DAILY ORAL ACTIVE CUTLER,WI LLIAM S 2022 [facility] TEMAZEPAM 30MG CAP TAKE ONE CAPSULE BY MOUTH AT BEDTIME NEEDED SLEEP ORAL ACTIVE 11/15/2024 [id number] 4 JAMIE HAWKINS MD 2023 30 [facility] TEMAZEPAM 30MG CAP TAKE ONE CAPSULE BY MOUTH AT BEDTIME NEEDED SLEEP ORAL DISCONT INUED (EDIT) 10/14/2024 [id number] 4 JAMIE HAWKINS MD 2023 30 [facility] TEMAZEPAM 30MG CAP TAKE ONE CAPSULE BY MOUTH AT BEDTIME NEEDED FOR SLEEP ORAL DISCONT INUED (EDIT) 07/05/2024 [id number] JAMIE HAWKINS MD 2023 30 [facility] TEMAZEPAM 30MG CAP TAKE ONE CAPSULE BY MOUTH AT BEDTIME NEEDED FOR SLEEP ORAL DISCONT INUED (EDIT) 04/08/2024 [id number] 4 JAMIE HAWKINS MD 2023 30 [facility] TEMAZEPAM 30MG CAP TAKE ONE CAPSULE BY MOUTH AT BEDTIME NEEDED ORAL DISCONT INUED (EDIT) 10/21/2023 [id number] 4 JAMIE HAWKINS MD [address] [facility] TEMAZEPAM 30MG CAP TAKE ONE CAPSULE BY MOUTH AT BEDTIME NEEDED ORAL DISCONT INUED (EDIT) 12/15/2023 [id number] 4 JAMIE HAWKINS MD [address] [facility] TEMAZEPAM 30MG CAP TAKE ONE CAPSULE BY MOUTH AT BEDTIME NEEDED ORAL DISCONT INUED (EDIT) 10/01/2023 [id number] 3 JAMIE HAWKINS MD 2022 30 [facility] THEOPHYLLIN E 400MG 24HR TAB,SA TAKE ONE TABLET BY MOUTH ONCE DAILY ORAL 03/13/2024 [id number] FAYE FLOOD 2022 90 [facility] UMECLIDINIU M 62.5MCG/MANISH ANTEROL 25MCG/ACTUA T INH,ORAL,30 D INHALE 1 INHALATI ON BY MOUTH ONCE DAILY RESPIR ATORY (INHAL ATION) ACTIVE Evi STRAUSS [facility] Allergies, Adverse Reactions, Alerts Combined list of allergies from Department of Defense and Veterans Affairs facilities. It does not include entries that were removed or entered in error. Substance Category Reaction Severity Reaction type Status Date Reported Comments Source DULOXETINE Propensity to adverse reactions to drug (finding) Anxiety MODERATE active 3 [facility] GABAPENTIN Propensity to adverse reactions to drug (finding) TARDIVE MYOCLONUS active 1 [facility] MORPHINE Propensity to adverse reactions to drug (finding) Anaphylaxis active [address] [facility] Immunizations Combined list of available immunizations from the Department of Defense and Veterans Affairs facilities. Immunization Series Date Given Administered By Site Reaction Lot Number CVX Code Drug Drapery Hemmer Automatic Status Comments Source COVID-19 (MODERNA), MRNA, LNP-S, PF, 50 MCG/0.5 ML (AGES 12+ YEARS) 2023 PRABHU RING HY E RIGHT DELTO ID [id number] 312 complet ed [facility] INFLUENZA, HIGH-DOSE, TRIVALENT, PF 2023 [facility] RIGHT DELTO ID [id number] 135 complet ed [facility] COVID-19 (MODERNA), MRNA, LNP-S, PF, 50 MCG/0.5 ML (AGES 12+ YEARS) 4 2023 OREN CAZARES RIGHT DELTO ID [id number] 312 complet ed [facility] INFLUENZA, INJECTABLE, QUADRIVALENT, PRESERVATIVE FREE 2022 OREN CAZARES RIGHT DELTO ID [id number] 150 complet ed [facility] COVID-19 (MODERNA), MRNA, LNP-S, PF, 100 MCG OR 50 MCG DOSE 3 2020 207 complet ed MOD; [id number]; 2 [facility] COVID-19 (MODERNA), MRNA, LNP-S, PF, 100 MCG/0.5 ML DOSE 2 2020 207 complet ed [facility] COVID-19 (MODERNA), MRNA, LNP-S, PF, 100 MCG/0.5 ML DOSE 1 2020 207 complet ed MOD; [id number]; 1 [facility] INFLUENZA, UNSPECIFIED FORMULATION 2019 88 complet ed [facility] TD (ADULT), 2 LF TETANUS TOXOID, PRESERVATIVE FREE, ADSORBED 2018 09 complet ed Site: Right Deltoid [facility] INFLUENZA, INJECTABLE, QUADRIVALENT 2017 158 complet ed Site: Right Deltoid [facility] PNEUMOCOCCAL CONJUGATE PCV 13 2017 133 complet ed [facility] INFLUENZA, SEASONAL, INJECTABLE 2016 141 complet ed Site: Left Deltoid [facility] FLU,3 YRS (HISTORICAL) 2016 88 complet ed Site: Left Deltoid [facility] FLU,3 YRS (HISTORICAL) 2014 88 complet ed Site: [facility] FLU,3 YRS (HISTORICAL) 2013 88 complet ed Site: Left [facility] FLU,3 YRS (HISTORICAL) 2012 88 complet ed Site: Left [facility] FLU,3 YRS (HISTORICAL) 2011 88 complet ed [facility] FLU,3 YRS (HISTORICAL) 2010 88 complet ed Site: Right [facility] DTAP, UNSPECIFIED FORMULATION 2010 RAMESHZACKERY YASMEEN 107 complet ed [facility] FLU,3 YRS (HISTORICAL) 2009 88 complet ed Site: Right [facility] FLU,3 YRS (HISTORICAL) 2008 88 complet ed [facility] NOVEL INFLUENZA-H1N 1-09, ALL FORMULATIONS 2008 128 complet ed [facility] PNEUMOCOCCAL, UNSPECIFIED FORMULATION 2007 109 complet ed [facility] FLU,3 YRS (HISTORICAL) 2007 88 complet ed Site: Left [facility] TD(ADULT) UNSPECIFIED FORMULATION 2006 139 complet ed [facility] Results Combined list of recent chemistry, hematology and other laboratory results from Department of Defense and [employer], ranging from 15 months to all on record, depending upon the facility. Order Name Results Value Reference Range Date Interpretation Specimen Comments Source ALCOHOL, ETHYL URINE PANEL ETHANOL [MASS/VOLU ME] IN URINE NONE-DET ECTEDmg/ dL - 10 05/16 Specimen Type: URINE Comment: Urine with Cr <5 is diluted or substituted . Cr between 5 and 20 is very dilute. Urine with SG of 1.001 or less is diluted or substituted . SG of 1.003 or less is very dilute. Urine with a pH <3 or >11 has been adulterated and is unsuitable for testing by our current method. Urine with pH between 3 and 4 OR 10 and 11 may have been adulterated . Ordering Provider: NOMAN MADSEN S Report Released Date/Time: May 16, 2024 01:45 PM Reporting Lab[facility] [place] [address] [address] Performing Lab: [address] [address] [facility] [place] ALCOHOL, ETHYL URINE PANEL PH OF URINE 4.7 [pH] 4 - 10 05/16 Specimen Type: URINE Comment: Urine with Cr <5 is diluted or substituted . Cr between 5 and 20 is very dilute. Urine with SG of 1.001 or less is diluted or substituted . SG of 1.003 or less is very dilute. Urine with a pH <3 or >11 has been adulterated and is unsuitable for testing by our current method. Urine with pH between 3 and 4 OR 10 and 11 may have been adulterated . Ordering Provider: NOMAN MADSEN S Report Released Date/Time: May 16, 2024 01:45 PM Reporting Lab: [facility] [address] Performing Lab: [facility] [address] [facility] [place] ALCOHOL, ETHYL URINE PANEL CREATININE [MASS/VOLU ME] IN URINE 76.90 mg/dL 05/16 Specimen Type: URINE Comment: Urine with Cr <5 is diluted or substituted . Cr between 5 and 20 is very dilute. Urine with SG of 1.001 or less is diluted or substituted . SG of 1.003 or less is very dilute. Urine with a pH <3 or >11 has been adulterated and is unsuitable for testing by our current method. Urine with pH between 3 and 4 OR 10 and 11 may have been adulterated . Ordering Provider: NOMAN MADSEN S Report Released Date/Time: May 16, 2024 01:45 PM Reporting Lab: [facility] [place] [address] [address] Performing Lab: [facility] [place] [facility] [address] [facility] [address] [facility] [facility] ALCOHOL, ETHYL URINE PANEL SPECIFIC GRAVITY OF URINE 1.015 1.003 - 1.020 05/16 Specimen Type: URINE Comment: Urine with Cr <5 is diluted or substituted . Cr between 5 and 20 is very dilute. Urine with SG of 1.001 or less is diluted or substituted . SG of 1.003 or less is very dilute. Urine with a pH <3 or >11 has been adulterated and is unsuitable for testing by our current method. Urine with pH between 3 and 4 OR 10 and 11 may have been adulterated . Ordering Provider: NOMAN MADSEN Report Released Date/Time: May 16, 2024 01:45 PM Reporting Lab: [facility] [place] [address] [address] Performing Lab: [facility] [place] [address] [address] [facility] [place] [facility] AMPHETAM MICHELE SCREEN PANEL AMPHETAMIN ES [PRESENCE] IN URINE NONE-DET ECTED - 1000 05/16 Specimen Type: URINE Comment: Urine with Cr <5 is diluted or substituted . Cr between 5 and 20 is very dilute. Urine with SG of 1.001 or less is diluted or substituted . SG of 1.003 or less is very dilute. Urine with a pH <3 or >11 has been adulterated and is unsuitable for testing by our current method. Urine with pH between 3 and 4 OR 10 and 11 may have been adulterated . Ordering Provider: NOMAN MADSEN Report Released Date/Time: May 16, 2024 01:45 PM Reporting Lab: [facility] [place] [address] [address] Performing Lab: [facility] [address] [address] [facility] [place] AMPHETAM MICHELE SCREEN PANEL PH OF URINE 4.7 [pH] 4 - 10 05/16 Specimen Type: URINE Comment: Urine with Cr <5 is diluted or substituted . Cr between 5 and 20 is very dilute. Urine with SG of 1.001 or less is diluted or substituted . SG of 1.003 or less is very dilute. Urine with a pH <3 or >11 has been adulterated and is unsuitable for testing by our current method. Urine with pH between 3 and 4 OR 10 and 11 may have been adulterated . Ordering Provider: NOMAN MADSEN S Report Released Date/Time: May 16, 2024 01:45 PM Reporting Lab: [address] [address] Performing Lab: [address] [address] [facility] [place] AMPHETAM MICHELE SCREEN PANEL CREATININE [MASS/VOLU ME] IN URINE 76.90 mg/dL 05/16 Specimen Type: URINE Comment: Urine with Cr <5 is diluted or substituted . Cr between 5 and 20 is very dilute. Urine with SG of 1.001 or less is diluted or substituted . SG of 1.003 or less is very dilute. Urine with a pH <3 or >11 has been adulterated and is unsuitable for testing by our current method. Urine with pH between 3 and 4 OR 10 and 11 may have been adulterated . Ordering Provider: NOMAN MADSEN S Report Released Date/Time: May 16, 2024 01:45 PM Reporting Lab: [address] [address] Performing Lab: [address] [address] [facility] [place] AMPHETAM MICHELE SCREEN PANEL SPECIFIC GRAVITY OF URINE 1.015 1.003 - 1.020 05/16 Specimen Type: URINE Comment: Urine with Cr <5 is diluted or substituted . Cr between 5 and 20 is very dilute. Urine with SG of 1.001 or less is diluted or substituted . SG of 1.003 or less is very dilute. Urine with a pH <3 or >11 has been adulterated and is unsuitable for testing by our current method. Urine with pH between 3 and 4 OR 10 and 11 may have been adulterated . Ordering Provider: NOMAN MADSEN Report Released Date/Time: May 16, 2024 01:45 PM Reporting Lab: [facility] [address] [address] Performing Lab: [address] [address] [facility] [place] BENZODIA ZEPINES SCREEN PANEL BENZODIAZE PINES [PRESENCE] IN URINE BY SCREEN METHOD POSITIVE - 200 05/16 HH Specimen Type: URINE Comment: Urine with Cr <5 is diluted or substituted . Cr between 5 and 20 is very dilute. Urine with SG of 1.001 or less is diluted or substituted . SG of 1.003 or less is very dilute. Urine with a pH <3 or >11 has been adulterated and is unsuitable for testing by our current method. Urine with pH between 3 and 4 OR 10 and 11 may have been adulterated . Ordering Provider: NOMAN MADSEN Report Released Date/Time: May 16, 2024 01:45 PM Reporting Lab: [address] [address] Performing Lab: [address] [address] [facility] [place] BENZODIA ZEPINES SCREEN PANEL PH OF URINE 4.7 [pH] 4 - 10 05/16 Specimen Type: URINE Comment: Urine with Cr <5 is diluted or substituted . Cr between 5 and 20 is very dilute. Urine with SG of 1.001 or less is diluted or substituted . SG of 1.003 or less is very dilute. Urine with a pH <3 or >11 has been adulterated and is unsuitable for testing by our current method. Urine with pH between 3 and 4 OR 10 and 11 may have been adulterated . Ordering Provider: NOMAN MADSEN Report Released Date/Time: May 16, 2024 01:45 PM Reporting Lab: [facility] [address] Performing Lab: [facility] [address] [address] [facility] [facility] BENZODIA ZEPINES SCREEN PANEL CREATININE [MASS/VOLU ME] IN URINE 76.90 mg/dL 20 05/16 Specimen Type: URINE Comment: Urine with Cr <5 is diluted or substituted . Cr between 5 and 20 is very dilute. Urine with SG of 1.001 or less is diluted or substituted . SG of 1.003 or less is very dilute. Urine with a pH <3 or >11 has been adulterated and is unsuitable for testing by our current method. Urine with pH between 3 and 4 OR 10 and 11 may have been adulterated . Ordering Provider: NOMAN MADSEN S Report Released Date/Time: May 16, 2024 01:45 PM Reporting Lab: [address] [address] Performing Lab: [address] [address] [facility] [place] BENZODIA ZEPINES SCREEN PANEL SPECIFIC GRAVITY OF URINE 1.015 1.003 - 1.020 05/16 Specimen Type: URINE Comment: Urine with Cr <5 is diluted or substituted . Cr between 5 and 20 is very dilute. Urine with SG of 1.001 or less is diluted or substituted . SG of 1.003 or less is very dilute. Urine with a pH <3 or >11 has been adulterated and is unsuitable for testing by our current method. Urine with pH between 3 and 4 OR 10 and 11 may have been adulterated . Ordering Provider: NOMAN MADSEN S Report Released Date/Time: May 16, 2024 01:45 PM Reporting Lab: [address] [address] Performing Lab: [address] [address] [facility] [place] BUPRENOR PHINE SCREEN PANEL BUPRENORPH INE [PRESENCE] IN URINE POSITIVE 05/16 Specimen Type: URINE Comment: Urine with Cr <5 is diluted or substituted . Cr between 5 and 20 is very dilute. Urine with SG of 1.001 or less is diluted or substituted . SG of 1.003 or less is very dilute. Urine with a pH <3 or >11 has been adulterated and is unsuitable for testing by our current method. Urine with pH between 3 and 4 OR 10 and 11 may have been adulterated . Ordering Provider: NOMAN MADSEN S Report Released Date/Time: May 16, 2024 01:45 PM Reporting Lab: [facility] [address] [address] Performing Lab: [address] [address] [facility] [place] BUPRENOR PHINE SCREEN PANEL PH OF URINE 4.7 [pH] 4 - 10 05/16 Specimen Type: URINE Comment: Urine with Cr <5 is diluted or substituted . Cr between 5 and 20 is very dilute. Urine with SG of 1.001 or less is diluted or substituted . SG of 1.003 or less is very dilute. Urine with a pH <3 or >11 has been adulterated and is unsuitable for testing by our current method. Urine with pH between 3 and 4 OR 10 and 11 may have been adulterated . Ordering Provider: NOMAN MADSEN S Report Released Date/Time: May 16, 2024 01:45 PM Reporting Lab: [address] [address] Performing Lab: [address] [address] [facility] [place] BUPRENOR PHINE SCREEN PANEL CREATININE [MASS/VOLU ME] IN URINE 76.90 mg/dL 05/16 Specimen Type: URINE Comment: Urine with Cr <5 is diluted or substituted . Cr between 5 and 20 is very dilute. Urine with SG of 1.001 or less is diluted or substituted . SG of 1.003 or less is very dilute. Urine with a pH <3 or >11 has been adulterated and is unsuitable for testing by our current method. Urine with pH between 3 and 4 OR 10 and 11 may have been adulterated . Ordering Provider: NOMAN MADSEN Report Released Date/Time: May 16, 2024 01:45 PM Reporting Lab: [facility] [place] [address] [address] Performing Lab: [facility] [place] [address] [address] [facility] [place] [facility] BUPRENOR PHINE SCREEN PANEL SPECIFIC GRAVITY OF URINE 1.015 1.003 - 1.020 05/16 Specimen Type: URINE Comment: Urine with Cr <5 is diluted or substituted . Cr between 5 and 20 is very dilute. Urine with SG of 1.001 or less is diluted or substituted . SG of 1.003 or less is very dilute. Urine with a pH <3 or >11 has been adulterated and is unsuitable for testing by our current method. Urine with pH between 3 and 4 OR 10 and 11 may have been adulterated . Ordering Provider: NOMAN MADSEN Report Released Date/Time: May 16, 2024 01:45 PM Reporting Lab: [facility] [place] [address] [address] Performing Lab: [facility] [address] [address] [facility] [address] [facility] [place] [facility] CANNABIN OIDS SCREEN PANEL CANNABINOI DS [PRESENCE] IN URINE BY SCREEN METHOD NONE-DET ECTED - 50 05/16 Specimen Type: URINE Comment: Urine with Cr <5 is diluted or substituted . Cr between 5 and 20 is very dilute. Urine with SG of 1.001 or less is diluted or substituted . SG of 1.003 or less is very dilute. Urine with a pH <3 or >11 has been adulterated and is unsuitable for testing by our current method. Urine with pH between 3 and 4 OR 10 and 11 may have been adulterated . Ordering Provider: NOMAN MADSEN Report Released Date/Time: May 16, 2024 01:45 PM Reporting Lab: [facility] [place] [address] [address] Performing Lab: [facility] [address] [address] [facility] [place] CANNABIN OIDS SCREEN PANEL PH OF URINE 4.7 [pH] 4 - 10 05/16 Specimen Type: URINE Comment: Urine with Cr <5 is diluted or substituted . Cr between 5 and 20 is very dilute. Urine with SG of 1.001 or less is diluted or substituted . SG of 1.003 or less is very dilute. Urine with a pH <3 or >11 has been adulterated and is unsuitable for testing by our current method. Urine with pH between 3 and 4 OR 10 and 11 may have been adulterated . Ordering Provider: NOMAN MADSEN S Report Released Date/Time: May 16, 2024 01:45 PM Reporting Lab: [address] [address] Performing Lab: [address] [address] [place] [address] CANNABIN OIDS SCREEN PANEL CREATININE [MASS/VOLU ME] IN URINE 76.90 mg/dL 05/16 Specimen Type: URINE Comment: Urine with Cr <5 is diluted or substituted . Cr between 5 and 20 is very dilute. Urine with SG of 1.001 or less is diluted or substituted . SG of 1.003 or less is very dilute. Urine with a pH <3 or >11 has been adulterated and is unsuitable for testing by our current method. Urine with pH between 3 and 4 OR 10 and 11 may have been adulterated . Ordering Provider: NOMAN MADSEN S Report Released Date/Time: May 16, 2024 01:45 PM Reporting Lab: [facility] [address] [address] Performing Lab: [address] [address] [facility] [place] CANNABIN OIDS SCREEN PANEL SPECIFIC GRAVITY OF URINE 1.015 1.003 - 1.020 05/16 Specimen Type: URINE Comment: Urine with Cr <5 is diluted or substituted . Cr between 5 and 20 is very dilute. Urine with SG of 1.001 or less is diluted or substituted . SG of 1.003 or less is very dilute. Urine with a pH <3 or >11 has been adulterated and is unsuitable for testing by our current method. Urine with pH between 3 and 4 OR 10 and 11 may have been adulterated . Ordering Provider: NOMAN MADSEN S Report Released Date/Time: May 16, 2024 01:45 PM Reporting Lab: [facility] [address] [address] Performing Lab: [address] [address] [facility] [place] COCAINE SCREEN PANEL COCAINE [PRESENCE] IN URINE BY SCREEN METHOD NONE-DET ECTED - 300 05/16 Specimen Type: URINE Comment: Urine with Cr <5 is diluted or substituted . Cr between 5 and 20 is very dilute. Urine with SG of 1.001 or less is diluted or substituted . SG of 1.003 or less is very dilute. Urine with a pH <3 or >11 has been adulterated and is unsuitable for testing by our current method. Urine with pH between 3 and 4 OR 10 and 11 may have been adulterated . Ordering Provider: NOMAN MADSEN S Report Released Date/Time: May 16, 2024 01:45 PM Reporting Lab: [facility] [address] [address] Performing Lab: [facility] [address] [address] [facility] [place] COCAINE SCREEN PANEL PH OF URINE 4.7 [pH] 4 - 10 05/16 Specimen Type: URINE Comment: Urine with Cr <5 is diluted or substituted . Cr between 5 and 20 is very dilute. Urine with SG of 1.001 or less is diluted or substituted . SG of 1.003 or less is very dilute. Urine with a pH <3 or >11 has been adulterated and is unsuitable for testing by our current method. Urine with pH between 3 and 4 OR 10 and 11 may have been adulterated . Ordering Provider: NOMAN MADSEN S Report Released Date/Time: May 16, 2024 01:45 PM Reporting Lab: [facility] [address] Performing Lab: [address] [address] [facility] [place] COCAINE SCREEN PANEL CREATININE [MASS/VOLU ME] IN URINE 76.90 mg/dL 05/16 Specimen Type: URINE Comment: Urine with Cr <5 is diluted or substituted . Cr between 5 and 20 is very dilute. Urine with SG of 1.001 or less is diluted or substituted . SG of 1.003 or less is very dilute. Urine with a pH <3 or >11 has been adulterated and is unsuitable for testing by our current method. Urine with pH between 3 and 4 OR 10 and 11 may have been adulterated . Ordering Provider: NOMAN MADSEN S Report Released Date/Time: May 16, 2024 01:45 PM Reporting Lab: [address] [address] Performing Lab: [address] [address] [facility] [place] COCAINE SCREEN PANEL SPECIFIC GRAVITY OF URINE 1.015 1.003 - 1.020 05/16 Specimen Type: URINE Comment: Urine with Cr <5 is diluted or substituted . Cr between 5 and 20 is very dilute. Urine with SG of 1.001 or less is diluted or substituted . SG of 1.003 or less is very dilute. Urine with a pH <3 or >11 has been adulterated and is unsuitable for testing by our current method. Urine with pH between 3 and 4 OR 10 and 11 may have been adulterated . Ordering Provider: NOMAN MADSEN S Report Released Date/Time: May 16, 2024 01:45 PM Reporting Lab: [address] [address] Performing Lab: [address] [address] [facility] [place] FENTANYL SCREEN PANEL FENTANYL [PRESENCE] IN URINE BY SCREEN METHOD NONE-DET ECTEDng/ mL 05/16 Specimen Type: URINE Comment: Urine with Cr <5 is diluted or substituted . Cr between 5 and 20 is very dilute. Urine with SG of 1.001 or less is diluted or substituted . SG of 1.003 or less is very dilute. Urine with a pH <3 or >11 has been adulterated and is unsuitable for testing by our current method. Urine with pH between 3 and 4 OR 10 and 11 may have been adulterated . FENTANYL CONFIRMATIO N NOT SENT BY LAB. Ordering Provider: NOMAN MADSEN S Report Released Date/Time: May 16, 2024 01:45 PM Reporting Lab: [address] [address] Performing Lab: [address] [address] [facility] [place] FENTANYL SCREEN PANEL PH OF URINE 4.7 [pH] 4 - 10 05/16 Specimen Type: URINE Comment: Urine with Cr <5 is diluted or substituted . Cr between 5 and 20 is very dilute. Urine with SG of 1.001 or less is diluted or substituted . SG of 1.003 or less is very dilute. Urine with a pH <3 or >11 has been adulterated and is unsuitable for testing by our current method. Urine with pH between 3 and 4 OR 10 and 11 may have been adulterated . FENTANYL CONFIRMATIO N NOT SENT BY LAB. Ordering Provider: NOMAN MADSEN S Report Released Date/Time: May 16, 2024 01:45 PM Reporting Lab: [address] [address] Performing Lab: [address] [address] [facility] [place] FENTANYL SCREEN PANEL CREATININE [MASS/VOLU ME] IN URINE 76.33 mg/dL 05/16 Specimen Type: URINE Comment: Urine with Cr <5 is diluted or substituted . Cr between 5 and 20 is very dilute. Urine with SG of 1.001 or less is diluted or substituted . SG of 1.003 or less is very dilute. Urine with a pH <3 or >11 has been adulterated and is unsuitable for testing by our current method. Urine with pH between 3 and 4 OR 10 and 11 may have been adulterated . FENTANYL CONFIRMATIO N NOT SENT BY LAB. Ordering Provider: NOMAN MADSEN S Report Released Date/Time: May 16, 2024 01:45 PM Reporting Lab: [facility] [place] [facility] [address] [facility] [address] Performing Lab: [facility] [place] [facility] [address] [facility] [address] [facility] [place] [facility] FENTANYL SCREEN PANEL SPECIFIC GRAVITY OF URINE 1.015 1.003 - 1.020 05/16 Specimen Type: URINE Comment: Urine with Cr <5 is diluted or substituted . Cr between 5 and 20 is very dilute. Urine with SG of 1.001 or less is diluted or substituted . SG of 1.003 or less is very dilute. Urine with a pH <3 or >11 has been adulterated and is unsuitable for testing by our current method. Urine with pH between 3 and 4 OR 10 and 11 may have been adulterated . FENTANYL CONFIRMATIO N NOT SENT BY LAB. Ordering Provider: NOMAN MADSEN S Report Released Date/Time: May 16, 2024 01:45 PM Reporting Lab: [facility] [place] [address] [address] Performing Lab: [facility] [address] [facility] [facility]USE [facility] METHADON E SCREEN METHADONE [PRESENCE] IN URINE BY SCREEN METHOD None detected (Negativ e) 05/16 L Specimen Type: URINE Comment: BRISSA test are qualitative , any L or H flags only indicate a [facility] alert was sent. Ordering Provider: NOMAN MADSEN S Report Released Date/Time: May 16, 2024 01:45 PM Reporting Lab: [facility] [place] [facility] [address] [facility] [address] Performing Lab: [facility] [place] [facility] [address] [facility] [address] [facility] [place] [facility] OPIATES SCREEN PANEL OPIATES [PRESENCE] IN URINE BY SCREEN METHOD POSITIVE - 300 05/16 HH Specimen Type: URINE Comment: Urine with Cr <5 is diluted or substituted . Cr between 5 and 20 is very dilute. Urine with SG of 1.001 or less is diluted or substituted . SG of 1.003 or less is very dilute. Urine with a pH <3 or >11 has been adulterated and is unsuitable for testing by our current method. Urine with pH between 3 and 4 OR 10 and 11 may have been adulterated . Ordering Provider: NOMAN MADSEN S Report Released Date/Time: May 16, 2024 01:45 PM Reporting Lab: [facility] [address] Performing Lab: [address] [address] [facility] [place] OPIATES SCREEN PANEL PH OF URINE 4.7 [pH] 4 - 10 05/16 Specimen Type: URINE Comment: Urine with Cr <5 is diluted or substituted . Cr between 5 and 20 is very dilute. Urine with SG of 1.001 or less is diluted or substituted . SG of 1.003 or less is very dilute. Urine with a pH <3 or >11 has been adulterated and is unsuitable for testing by our current method. Urine with pH between 3 and 4 OR 10 and 11 may have been adulterated . Ordering Provider: NOMAN MADSEN S Report Released Date/Time: May 16, 2024 01:45 PM Reporting Lab: [facility] [address] [address] Performing Lab: [address] [address] [facility] [place] OPIATES SCREEN PANEL CREATININE [MASS/VOLU ME] IN URINE 76.90 mg/dL 05/16 Specimen Type: URINE Comment: Urine with Cr <5 is diluted or substituted . Cr between 5 and 20 is very dilute. Urine with SG of 1.001 or less is diluted or substituted . SG of 1.003 or less is very dilute. Urine with a pH <3 or >11 has been adulterated and is unsuitable for testing by our current method. Urine with pH between 3 and 4 OR 10 and 11 may have been adulterated . Ordering Provider: NOMAN MADSEN S Report Released Date/Time: May 16, 2024 01:45 PM Reporting Lab[facility] [place] [address] [address] Performing Lab: [facility] [address] [address] [facility] OPIATES SCREEN PANEL SPECIFIC GRAVITY OF URINE 1.015 1.003 - 1.020 05/16 Specimen Type: URINE Comment: Urine with Cr <5 is diluted or substituted . Cr between 5 and 20 is very dilute. Urine with SG of 1.001 or less is diluted or substituted . SG of 1.003 or less is very dilute. Urine with a pH <3 or >11 has been adulterated and is unsuitable for testing by our current method. Urine with pH between 3 and 4 OR 10 and 11 may have been adulterated . Ordering Provider: NOMAN MADSEN S Report Released Date/Time: May 16, 2024 01:45 PM Reporting Lab: [facility] [place] [address] [address] Performing Lab: [facility]ENTER[facility] [address] [address] [facility] OXYCODON E SCREEN PANEL OXYCODONE [PRESENCE] IN URINE BY SCREEN METHOD POSITIVE - 100 05/16 Specimen Type: URINE Comment: Urine with Cr <5 is diluted or substituted . Cr between 5 and 20 is very dilute. Urine with SG of 1.001 or less is diluted or substituted . SG of 1.003 or less is very dilute. Urine with a pH <3 or >11 has been adulterated and is unsuitable for testing by our current method. Urine with pH between 3 and 4 OR 10 and 11 may have been adulterated . Ordering Provider: NOMAN MADSEN S Report Released Date/Time: May 16, 2024 01:45 PM Reporting Lab: [facility] [place] [address] [address] Performing Lab: [facility]ENTERUSE[address] [address] [facility] OXYCODON E SCREEN PANEL PH OF URINE 4.7 [pH] 4 - 10 05/16 Specimen Type: URINE Comment: Urine with Cr <5 is diluted or substituted . Cr between 5 and 20 is very dilute. Urine with SG of 1.001 or less is diluted or substituted . SG of 1.003 or less is very dilute. Urine with a pH <3 or >11 has been adulterated and is unsuitable for testing by our current method. Urine with pH between 3 and 4 OR 10 and 11 may have been adulterated . Ordering Provider: NOMAN MADSEN S Report Released Date/Time: May 16, 2024 01:45 PM Reporting Lab: [address] [address] Performing Lab: [address] [address] [facility] [place] OXYCODON E SCREEN PANEL CREATININE [MASS/VOLU ME] IN URINE 76.90 mg/dL 05/16 Specimen Type: URINE Comment: Urine with Cr <5 is diluted or substituted . Cr between 5 and 20 is very dilute. Urine with SG of 1.001 or less is diluted or substituted . SG of 1.003 or less is very dilute. Urine with a pH <3 or >11 has been adulterated and is unsuitable for testing by our current method. Urine with pH between 3 and 4 OR 10 and 11 may have been adulterated . Ordering Provider: NOMAN MADSEN S Report Released Date/Time: May 16, 2024 01:45 PM Reporting Lab: [facility]ENTERUSE[address] [address] Performing Lab: [facility]ENTERUSE[address] [address] [facility] [place] OXYCODON E SCREEN PANEL SPECIFIC GRAVITY OF URINE 1.015 1.003 - 1.020 05/16 Specimen Type: URINE Comment: Urine with Cr <5 is diluted or substituted . Cr between 5 and 20 is very dilute. Urine with SG of 1.001 or less is diluted or substituted . SG of 1.003 or less is very dilute. Urine with a pH <3 or >11 has been adulterated and is unsuitable for testing by our current method. Urine with pH between 3 and 4 OR 10 and 11 may have been adulterated . Ordering Provider: NOMAN MADSEN Report Released Date/Time: May 16, 2024 01:45 PM Reporting Lab: [facility] [place] [facility] [address] [facility] [address] Performing Lab: [facility] [place] [facility] [address] [facility] [address] [facility] Vital Signs Combined list of inpatient and outpatient Vital Signs from Department of Defense and Veterans Affairs, ranging from 12 months to all on record, depending upon the facility. Vital Sign Value Date Comments Source SYSTOLIC BLOOD PRESSURE 118 04/13/2024 14:12:51 [facility] DIASTOLIC BLOOD PRESSURE 66 04/13/2024 14:12:51 [facility] [place] PULSE OXIMETRY 95 04/13/2024 14:12:51 [facility] [place] [facility] TEMPERATURE 97 04/13/2024 14:12:51 [facility] [place] PULSE 63 04/13/2024 14:12:51 [facility] [place] RESPIRATION 19 04/13/2024 14:12:51 [facility] [place] SYSTOLIC BLOOD PRESSURE 140 03/06/2024 09:26:55 [facility] [place] DIASTOLIC BLOOD PRESSURE 75 03/06/2024 09:26:55 [facility] [place] PULSE OXIMETRY 98 03/06/2024 09:26:55 [facility] [place] [facility] PULSE 78 03/06/2024 09:26:55 [facility] [place] [facility] RESPIRATION 20 03/06/2024 09:26:55 [facility] [place] [facility] SYSTOLIC BLOOD PRESSURE 145 01/17/2024 15:15:14 [facility] [place] [facility] DIASTOLIC BLOOD PRESSURE 76 01/17/2024 15:15:14 [facility] [place] [facility] PULSE OXIMETRY 96 01/17/2024 15:15:14 [facility] [place] [facility] PULSE 58 01/17/2024 15:15:14 [facility] [place] [facility] RESPIRATION 18 01/17/2024 15:15:14 [facility] [place] [facility] SYSTOLIC BLOOD PRESSURE 167 09/08/2023 13:03:23 [facility] [place] [facility] DIASTOLIC BLOOD PRESSURE 69 09/08/2023 13:03:23 [facility] [place] [facility] PULSE OXIMETRY 93 09/08/2023 13:03:23 [facility] [place] [facility] PAIN 6 09/08/2023 13:03:23 [facility] [place] [facility] TEMPERATURE 97.9 09/08/2023 13:03:23 [facility] [place] PULSE 71 09/08/2023 13:03:23 [facility] [place] RESPIRATION 20 09/08/2023 13:03:23 [facility] [place] Encounters Combined list of: 1) Encounters from Department of Veterans Affairs facilities going back up to thelast 18 months. 2) Encounters from the Department of Defense facilities going back up to 280 months. Location Location Details Encounter Type Encounter Number Reason For Visit Attending Provider ADM Date DC Date Status Disposition Source [facility] Encounter [id number] 01/06 [facility]counter [id number] 01/07 [facility] Out[facility]counter [id number] 01/12 [facility] HC PRO PHONE CALL 11-20 MIN [id number] Diagnos is: ICD-10- CM J44.9 Chronic obstruc tive pulmona ry disease , unspeci fied
JARMOLOWIC ZLUPEROSALVA 01/12 [facility] Encounter [id number] 01/13 [facility] OFFICE O/P EST MOD 30-39 MIN [id number] Diagnos is: ICD-10- CM G89.4 Chronic pain syndrom e
CUTLERLANDON KARIME S 01/14 [facility] Encounter [id number] 01/14 [facility] Encounter [id number] 02/10 [facility] Out[facility] Encounter [id number] 02/16 [facility] OFFICE O/P EST MOD 30-39 MIN [id number] Diagnos is: ICD-10- CM G89.4 Chronic pain syndrom e
CUTLERALNDON KARIME S 02/17 [facility] Encounter [id number] 02/17 [facility] Out[facility] Encounter [id number] 02/18 [facility] HC PRO PHONE CALL 11-20 MIN [id number] Diagnos is: ICD-10- CM J44.9 Chronic obstruc tive pulmona ry disease , unspeci fied
ARACELIS CottrellROSALVA 02/18 [facility] [place] DIG ASSMT&MGMT 5-10 [id number] Diagnos is: ICD-10- CM Z04.89 Encount er for examina tion and observa tion for oth reasons
JESSA CONTI IE 03/03 [place] OL DIG ASSMT&MGMT 5-10 [id number] Diagnos is: ICD-10- CM Z04.89 Encount er for examina tion and observa tion for oth reasons
REYESGITA Evi Olivo 03/04 [facility] [place] [facility] Outpatient Encounter [id number] 03/12 [facility] Outpatient [facility]counter [id number] 03/24 [facility] OFFICE O/P NEW SF 15-29 MIN [id number] Diagnos is: ICD-10- CM E66.9 Obesity , unspeci fied
LAUREENALI CE 03/25 [facility] [place] OFFICE O/P EST MOD 30-39 MIN [id number] Diagnos is: ICD-10- CM G89.4 Chronic pain syndrom e
LANDON MADSEN S 03/25 [facility] [place] [place] Outpatient Encounter [id number] 08/31 /2023 [facility] Encounter [id number] 03/25 [facility] OFFICE O/P EST SF 10-19 MIN [id number] Diagnos is: ICD-10- CM F41.9 Anxiety disorde r, unspeci fied
Pallavi HAWKINS MD 03/31 [facility] En[facility] [id number] 03/31 [facility] Out[facility] Encounter [id number] 04/05 [facility] Out[facility]counter [id number] 04/05 [facility] Encounter [id number] 04/05 [facility] [place] Q[place] OL DIG ASSMT&MGMT 5-10 [id number] Diagnos is: ICD-10- CM Z04.89 Encount er for examina tion and observa tion for oth reasons
JESSA CONTI IE 04/07 [place] [facility] En[facility] [id number] 04/07 [facility] Encounter [id number] 04/15 [facility] Encounter [id number] 04/15 [facility] Out[facility] Encounter [id number] 04/20 [facility] Out[facility]counter [id number] 04/20 [facility] Out[facility] Encounter [id number] 04/21 [facility] OFFICE O/P EST MOD 30-39 MIN [id number] Diagnos is: ICD-10- CM G89.4 Chronic pain syndrom e
LANDON MADSEN 04/21 [facility] En[facility] [id number] 04/21 [facility] Out[facility] Encounter [id number] 04/23 [facility] Out[facility] Encounter [id number] 05/04 [facility] Encounter [id number] 05/12 [facility] Out[facility]counter [id number] 05/12 [facility] OFFICE O/P EST MOD 30-39 MIN [id number] Diagnos is: ICD-10- CM G89.4 Chronic pain syndrom e
LANDON MADSEN 05/13 [facility] En[facility] [id number] 05/13 [facility] Encounter [id number] 05/13 [facility] Encounter [id number] 05/14 [facility] Out[facility]counter [id number] 05/17 [facility] Out[facility] Encounter [id number] 05/21 [facility] Out[facility] Encounter [id number] 05/27 [facility] Out[facility] Encounter [id number] 05/31 [facility] TUBING WITH HEATING ELEMENT [id number] Diagnos is: ICD-10- CM G47.30 Sleep apnea, unspeci fied
JARMOLOWIC ZLUPEROSALVA 05/31 [facility] En[facility] [id number] 06/11 [facility] Out[facility] Encounter [id number] 06/23 [facility] OFFICE O/P EST MOD 30-39 MIN [id number] Diagnos is: ICD-10- CM G89.4 Chronic pain syndrom e
LANDON MADSEN S 06/24 [facility] OFFICE O/P EST SF 10-19 MIN [id number] Diagnos is: ICD-10- CM F41.9 Anxiety disorde r, unspeci fied
Pallavi HAWKINS MD 07/01 [facility] Outpatient Encounter [id number] 07/02 [facility] OFFICE O/P EST HI 40-54 MIN [id number] Diagnos is: ICD-10- CM G89.29 Other chronic pain
KUPFERSCHM ID,JESSIKA B 07/05 [facility] Outpatient [facility]counter [id number] 07/06 [facility] Out[facility] Encounter [id number] 07/07 [facility] OFF/OP EST MAY X REQ PHY/QHP [id number] Diagnos is: ICD-10- CM Z23 Encount er for immuniz ation<b r/> ROMANA WOODS 07/08 [facility] Outpatient Encounter [id number] 07/13 [facility] Out[facility] Encounter [id number] 07/13 [facility] Out[facility] Encounter [id number] 07/13 [facility] Out[facility] Encounter [id number] 07/14 [facility] Out[facility] Encounter [id number] 07/15 [facility] Out[facility] Encounter [id number] 07/27 [facility] OFFICE O/P EST LOW 20 MIN [id number] Diagnos is: ICD-10- CM G89.4 Chronic pain syndrom e
LANDON MADSEN 07/27 [facility] Out[facility] Encounter [id number] 07/28 [facility] Out[facility] Encounter [id number] 08/03 [facility] OFFICE O/P EST SF 10 MIN [id number] Diagnos is: ICD-10- CM F41.9 Anxiety disorde r, unspeci fied
Pallavi HAWKINS MD 08/05 [facility] Encounter [id number] 08/11 [facility] Out[facility]counter [id number] 08/11 [facility] Out[facility] Encounter [id number] 08/17 [facility] Outpatient Encounter [id number] 08/18 [facility] OFFICE O/P EST MOD 30 MIN [id number] Diagnos is: ICD-10- CM G89.4 Chronic pain syndrom e
LANDON MADSEN S 08/18 [facility] Out[facility] Encounter [id number] 08/20 [facility] Out[facility] Encounter [id number] 08/23 [facility] Out[facility] Encounter [id number] 08/24 [facility] COLLJ & INTERPJ DATA EA 30 D [id number] Diagnos is: ICD-10- CM G47.30 Sleep apnea, unspeci fied
ANIKA CROW A 08/25 [facility] En[facility] [id number] 08/27 [facility] Out[facility] Encounter [id number] 08/27 [facility] Outpatient Encounter [id number] 08/31 [facility] Out[facility] Encounter [id number] 08/31 [facility] Out[facility] Encounter [id number] 09/01 [facility] Encounter [id number] 09/01 [facility] Out[facility] Encounter [id number] 09/01 [facility] Out[facility]counter [id number] 09/02 [facility] Outpatient Encounter [id number] 09/02 [facility] HC PRO PHONE CALL 21-30 MIN [id number] Diagnos is: ICD-10- CM 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.89 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 ed 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<br/ > EVIE GREEN 09/02 [facility] Encounter [id number] 09/02 [facility] Out[facility] Encounter [id number] 09/06 [facility] Encounter [id number] 09/07 [facility] Out[facility] Encounter [id number] 09/07 [facility] Out[facility] Encounter [id number] 09/08 [facility] Out[facility] Encounter [id number] 09/08 [facility] OFFICE O/P EST MOD 30 MIN [id number] Diagnos is: ICD-10- CM Z23 Encount er for immuniz ation<b r/> ROMANA WOODS 09/08 [facility] MTMS BY PHARM ADDL 15 MIN [id number] Diagnos is: ICD-10- CM G89.4 Chronic pain syndrom e
LUCIE FOSTER 09/08 [facility] En[facility] [id number] 09/08 [facility] Out[facility] Encounter [id number] 09/08 [facility] Out[facility] Encounter [id number] 09/10 [facility] Out[facility] Encounter [id number] 09/10 [facility] Out[facility] Encounter [id number] 09/16 [facility] Out[facility] Encounter [id number] 09/16 [facility] Out[facility]counter [id number] 09/17 [facility] [id number] 09/22 [facility] [id number] 09/23 [facility] [id number] 09/26 [facility] [id number] 09/29 [facility] En[facility] [id number] 10/04 [facility] OFFICE O/P EST MOD 30 MIN [id number] Diagnos is: ICD-10- CM G89.4 Chronic pain syndrom e
LANDON MADSEN 10/05 [facility] OFF[facility] O/P EST LOW 20 MIN [id number] Diagnos is: ICD-10- CM F41.9 Anxiety disorde r, unspeci fied
Pallavi HAWKINS MD 10/06 [facility] [id number] 10/13 [facility] [id number] 10/18 [facility] [id number] 10/19 [facility] [id number] 10/24 [facility] [id number] 10/31 [facility] [id number] 11/03 [facility] [id number] 11/07 [facility] [id number] 11/11 [facility] [id number] ADRIANA CERVANTES 11/14 [facility] En[facility] [id number] 11/15 [facility] OFF[facility] O/P EST MOD 30 MIN [id number] Diagnos is: ICD-10- CM G89.4 Chronic pain syndrom e
LANDON MADSEN S 11/16 [facility] [id number] 11/16 [facility] [id number] 12/05 [facility] En[facility] [id number] 12/05 [facility] CPAP FULL FACE MASK [id number] Diagnos is: ICD-10- CM G47.39 Other sleep apnea<b r/> ANIKA CROW 12/06 [facility] En[facility] [id number] 12/06 [facility] [id number] 12/21 [facility] [id number] 12/26 [facility] En[facility] [id number] 01/02 [facility] OFFICE O/P EST LOW 20 MIN [id number] Diagnos is: ICD-10- CM F41.9 Anxiety disorde r, unspeci fied
Pallavi HAWKINS MD 01/02 [facility] OFFICE O/P EST LOW 20 MIN [id number] Diagnos is: ICD-10- CM I10 Essenti al (primar y) hyperte nsion<b r/> ROMANA WOODS 01/16 [facility] [facility] En[facility] [id number] 01/24 [facility] OFFICE O/P EST MOD 30 MIN [id number] Diagnos is: ICD-10- CM G89.4 Chronic pain syndrom e
LANDON MADSEN 01/25 [facility] Encounter [id number] 02/01 [facility] Encounter [id number] 02/02 [facility] Encounter [id number] 02/07 [facility] Encounter [id number] 02/07 [facility] Encounter [id number] 02/08 [facility] Encounter [id number] 02/08 [facility] Encounter [id number] Diagnos is: ICD-10- CM E87.5 Hyperka lemia<b r/> LANDON MADSEN S 02/08 [facility] Encounter [id number] 02/10 [facility] Encounter [id number] 02/10 [facility] Encounter [id number] 02/10 [facility] Encounter [id number] 02/11 [facility] OFFICE O/P EST LOW 20 MIN [id number] Diagnos is: ICD-10- CM F41.9 Anxiety disorde r, unspeci fied
Pallavi HAWKINS MD 02/13 [facility] En[facility] [id number] 02/23 [facility] Encounter [id number] 02/24 [facility] Encounter [id number] 03/02 [facility] Encounter [id number] 03/04 [facility] OFF[facility] O/P EST MOD 30 MIN [id number] Diagnos is: ICD-10- CM I10 Essenti al (primar y) hyperte nsion<b r/> ROMANA WOODS 03/06 [facility] Encounter [id number] 1.03/16 [facility] HC PRO PHONE CALL 5-10 MIN [id number] 1. Diagnos is: ICD-10- CM J44.9 Chronic obstruc tive pulmona ry disease , unspeci fied
JARMOLOWIC ZROSALVA 03/16 [facility] En[facility] [id number] 1.03/28 [facility] Encounter [id number] 1.03/30 [facility] QNHP OL DIG ASSMT&MGMT 5-10 [id number] 1. Diagnos is: ICD-10- CM G89.4 Chronic pain syndrom e
[employer] 03/30 [facility] En[facility] [id number] 1.04/03 [facility] Encounter [id number] 04/05 [facility] Encounter [id number] 04/05 [facility] Encounter [id number] 04/06 [facility] Outpatient Encounter [id number] Diagnos is: ICD-10- CM F41.9 Anxiety disorde r, unspeci fied
Pallavi HAWKINS MD 04/13 [facility] Outpatient Encounter [id number] 04/13 [facility] OFFICE O/P EST MOD 30 MIN [id number] Diagnos is: ICD-10- CM I50.9 Heart failure , unspeci fied
ROMANA WOODS 04/13 [facility] OFF/OP EST MAY X REQ PHY/QHP [id number] Diagnos is: ICD-10- CM Z23 Encount er for immuniz ation<b r/> TARYN RING 04/13 [facility] Outpatient Encounter [id number] 04/14 [facility] Outpatient Encounter [id number] 04/24 [facility] Encounter [id number] 05/03 [facility] Encounter [id number] 05/03 [facility] Out[facility] Encounter [id number] 05/09 [facility] Out[facility] Encounter [id number] 05/10 [facility] Out[facility] Encounter [id number] 1. Diagnos is: ICD-10- CM G89.4 Chronic pain syndrom e
LANDON MADSEN 05/10 [facility] Out[facility] Encounter [id number] 05/10 [facility] OFFICE O/P EST LOW 20 MIN [id number] Diagnos is: ICD-10- CM F41.9 Anxiety disorde r, unspeci fied
Pallavi HAWKINS MD 05/15 [facility] Encounter [id number] 05/15 [facility] Out[facility] Encounter [id number] Diagnos is: ICD-10- CM G89.4 Chronic pain syndrom e
LANDON MADSEN 05/16 [facility] Out[facility] Encounter [id number] 05/19 [facility] Out[facility] Encounter [id number] 05/21 [facility] Out[facility] Encounter [id number] 05/24 [facility] Outpatient Encounter [id number] 05/24 [facility] OFFICE O/P EST HI 40 MIN [id number] Diagnos is: ICD-10- CM G89.4 Chronic pain syndrom e
LANDON MADSNE 05/25 [facility] Encounter [id number] 05/30 [facility] Out[facility] Encounter [id number] 06/01 [facility] Out[facility] Encounter [id number] 06/15 [facility] Out[facility] Encounter [id number] 06/20 [facility] Encounter [id number] 06/28 [facility] Social History Combined list of available smoking, tobacco, and other social history from Department of Defense and Veterans Affairs facilities. Social History Type Response Date Comment Source Tobacco smoking status [facility] [place]-[facility] FORMER USER 03/06/2024 [facility] History [facility] tobacco use [place]-TOBACCO FORMER USER 03/31/2023 [facility] 03[facility]25[facility]2022 [facility] History of tobacco use [place]-TOBACCO FORMER USER 03/19/2021 [facility] [place] [facility] History of tobacco use QUIT TOBACCO USE IN PAST YEAR 10/21[facility] History of tobacco use QUIT TOBACCO USE 1-7 YEARS AGO 12/30/2016 [facility] [place] History of tobacco use QUIT TOBACCO USE 1-7 YEARS AGO 06/04/2016 [facility] [place] [facility] History of tobacco use QUIT TOBACCO USE 1-7 YEARS AGO 05/17/2015 quit 2 years ago. [facility] History of tobacco use QUIT TOBACCO USE 1-7 YEARS AGO 06/07/2014 [facility] [place] [facility] History of tobacco use QUIT TOBACCO USE IN PAST YEAR 11/30/2013 [facility] [place] [facility] History of tobacco use QUIT TOBACCO USE IN PAST YEAR 05/22/2013 [facility] [place] [facility] History of tobacco use QUIT TOBACCO USE IN PAST YEAR 12/01/2012 [facility] History of tobacco use V1-PT DECLINES TOBACCO CESSATION MEDS 06/07/2012 [facility] [place] [facility] History of tobacco use CURRENT SMOKER 01/05/2012 [facility] History of tobacco use V1-PT DECLINES TOBACCO CESSATION MEDS 02/17/2011 [facility] [place] [facility] History of tobacco use QUIT TOBACCO USE IN PAST YEAR 08/13/2010 [facility] History of tobacco use QUIT TOBACCO USE IN PAST YEAR 02/19/2010 [facility] History of tobacco use QUIT TOBACCO USE IN PAST YEAR 09/13/2009 [facility] History of tobacco use V1-PT DECLINES TOBACCO CESSATION MEDS 02/05/2009 [facility] History of tobacco use QUIT TOBACCO USE IN PAST YEAR 08/22/2008 [facility] History of tobacco use V1-PT DECLINES TOBACCO CESSATION MEDS 03/12/2008 [facility] History of tobacco use CURRENT SMOKER 03/08/2008 smokes one pack a da y for about 10 years ago. [facility] Plan of Care List of future care activities from Department of [facility] facilities. Additional future care activities may be listed in the Assessment and Plan section. Date/Time Care Activity Care Activity Detail Facili ty 07/13/2024 AMBULATORY - MEDICINE AMBULATORY - MEDICI [facility] 08/24/2024 AMBULATORY - MEDICINE AMBULATORY - MEDICI [facility]
--- OUTSIDE RECORDS SUMMARY | 2024-07-05 03:06 | XMS_ITS | Continuity of Care Document ---
Author Organization [facility] Address [address] [place] [address]- Care Team Providers Care Lighting Engineer Name Role Phone Yenny ROSE MD, Chirag Olivo Primary Care Physici an Encounter [facility] Date(s): 05/11/24 - 06/10/24 [facility] [address] [place] [id number]- Attending Physician: Bethany Smith Admitting Physician: AdmBethany dailey Referring Physician: Admtr ArDax Encounter Type: Triage Allergies, Adverse Reactions, Alerts Substance Criticality Severity Reaction Reaction Severity Status morphine High criticality Severe anaphylaxis A ctive Tomatoes mouth itch Active propofol anaphylaxis Active gabapentin tardive dyskenesia Active Immunizations Given and Recorded Vaccine Date Status Refusal Reason SARS-CoV-2(COVID-19)mRNA-LNP vac([id number]) 09/08/23 Recorded influenza virus vaccine, inactivated 05/05/22 [...] 4:28:00 PM EDT, Route to Pharmacy Electronically, [facility], Partial fill upon patient request [...] 0 Refills, Maintenance, 05/14/22 4:09:00PM EDT, Tablet, [facility], Partial fill upon patient request [...] Refills, Maintenance, 03/21/24 4:26:00 PM EDT, Capsule, [facility], Partial fill upon patient request [...] Refills, Soft Stop, 09/01/23 3:31:00 PM EST, [facility]/pharmacy #[id number], Partial fill upon patient request if [...] Maintenance, 04/17/22 6:01:00 PM EDT, CR Tablet, [facility]/pharmacy #[id number], Partial fill upon patient request if [...] on: 05/22/21 Sex Sex Representation Female (finding) Laboratory * Event Display: Non [facility] Lab Results Authored Date: * Event Display: Non [facility] Lab Results Authored Date: * Event Display: Non [facility] Lab Results Authored Date: Patient Care team information Care Team Personnel Name: Thomas Lomax RN Position: [facility] ED RN W/OE and Tasks Member Role: Primary Care Nurse Name: Mandy Hightower RN Position: [facility] RN Member Role: Primary Care Nurse Name: Akosua Moses RN Position: [facility] RN Member Role: Primary Care Nurse Name: Michelle Zambrano RN Position: [facility] RN Member Role: Primary Care Nurse Name: Stacie Ortiz RN Position: [facility] SN RN Member Role: Primary Care Nurse Name: Nicole Alvarado RN Position: [facility] GIAN Nurse Member Role: Primary Care Nurse Name: Saranya Muir RN Position: [facility] RN Member Role: Primary Care Nurse Name: David Gil RN Position: [facility] RN Member Role: Primary Care Nurse Name: Chirag Ramon JR, MD Position: Reference Physician Member Role: PCP Address: [address] [place] [address] Telecom: Name: Pau Olmedo RN Position: [facility] RN Member Role: Primary Care Nurse Name: Rodrigo Noel RN Position: [facility] RN Member Role: Primary Care Nurse Name: Ximena Constantino RN Position: [facility] SN RN Member Role: Primary Care Nurse Name: Kylie Wilde RN Position: [facility] RN Member Role: Primary Care Nurse Name: Domenica Ramirez RN Position: [facility] RN Member Role: Primary Care Nurse Name: Talita Roberts RN Position: [facility] RN Member Role: Primary Care Nurse Name: Klarissa Ko RN Position: [facility] RN Member Role: Primary Care Nurse Name: Ivette Osorio RN Position: [facility] RN Member Role: Primary Care Nurse Name: Alma Lott RN Position: [facility] SN RN Member Role: Primary Care Nurse Name: Elise Quick NP Position: [facility] Associate Professional Member Role: Lifetime Consulting Provider Address: [address] [place], [place] [address] [place], [place] [address] Telecom: Name: Eulalio Prado MD Position: [facility] Renal MD Member Role: Lifetime Consulting Physician Address: [address] [place], [place] [address] [place], [place] [address] Telecom: Name: Caroline Shirley RN Position: [facility] RN Member Role: Primary Care Nurse Name: Cori Landeros RN Position: [facility] RN Member Role: Primary Care Nurse Name: Chelle Ricardo RN Position: [facility] RN Member Role: Primary Care Nurse Name: Wolfgang Siddiqui RN Position: [facility] RN Member Role: Primary Care Nurse Name: Sigrid London RN Position: [facility] RN Member Role: Primary Care Nurse Name: Kelsi Kim RN Position: [facility] RN Member Role: Primary Care Nurse Name: Mireya Catherine RN Position: [facility] RN Member Role: Primary Care Nurse Name: Lizet Hilliard RN Position: [facility] RN Member Role: Primary Care Nurse Name: Magalie Grande RN Position: [facility] RN Member Role: Primary Care Nurse Name: Josefina Leonard RN Position: [facility] SN RN Member Role: Primary Care Nurse Name: Prem Barrera MD Position: [facility] Renal MD Member Role: Lifetime Consulting Physician Address: [address] [facility] [place] [address]- Telecom: Name: Alma Reyes RN Position: [facility] RN Member Role: Primary Care Nurse Name: Nayely Mercado RN Position: [facility] RN Member Role: Primary Care Nurse Name: Lata Hernandez RN Position: [facility] SN RN Member Role: Primary Care Nurse Name: Atul Molina MD Position: [facility] Renal MD Member Role: Lifetime Consulting Physician Address: [address] [facility] [address] [facility] [place], [place] [address] Telecom: Name: Gema Jean Baptiste RN Position: [facility] RN Member Role: Primary Care Nurse Name: Esther Miller RN Position: [facility] RN Member Role: Primary Care Nurse Name: Siena Coleman RN Position: [facility] RN Member Role: Primary Care Nurse Name: Julia Alex RN Position: [facility] RN Member Role: Primary Care Nurse Name: Brandi Martinez RN Position: [facility] RN Member Role: Primary Care Nurse Name: Joann Moore RN Position: [facility] RN Member Role: Primary Care Nurse Name: Ramya Cook RN Position: [facility] Hospital Real Estate Subagent Member Role: Primary Care Nurse Care Team Related Persons Name: APRIL QUEZADA Name: HARVEY CASAS Insurance Providers Guarantor name: REID QUEZADA Health Plan Information #: 1 Payer: MEDICARE PART B OUTPT Member Number: NA Policy Number: NA Group Number: NA
--- OUTSIDE RECORDS SUMMARY | 2024-07-05 03:07 | XMS_ITS | Encounter Summary ---
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 [place] Organization [facility] [place] Address [address] [place] [id number] Care Team Providers Care Cooker Sulfate Name Role Phone ROMANA CASTILLO Primary Care [...] Garcia's Name Patient's Relationship to Policy Garcia [facility] (MEDICAID[facility] May 14, 2009 [id number] SAMPLE,ROCCO MOORE PATIENT [facility]ICAID [facility] May 14, 2009 [id number] SAMPLE,ROCCO MOORE PATIENT MEDICAID MEDICAID [facility] Jul 26, 2018 MEDICAI D [id number] SAMPLE,ROCCO MOORE PATIENT MEDICARE (WNR) MEDICARE (M) PART A November 24, 2015 PART A [id number] SAMPLE,ROCCO MOORE PATIENT MEDICARE (WNR) MEDICARE (M) PART B November 24, 2015 PART B [id number] [phone] ROCCO QUEZADA PATIENT Selected Encounter This section includes the information on record at [place] for the Encounter. Date/Time Encounter Type Encounter Description Reason Pro vider Source Jul 06, 2023 01:21 PM Outpatient Encounter PAIN CLINIC IHE Encounter Template Text not used by [place] Plan of Treatment: Future Appointments (+ 6 months) and Future Tests (+/- 45 days) The Plan of Treatment section includes future care activities for the patient from all [place] treatmentfacilities. This section includes future appointments and future orders which are active, pending or scheduled. Future Appointments This section includes appointments that were scheduled to occur 6 months from the date of the Encounter, up to a maximum of 20 appointments. The data comes from all [place] treatment facilities. Appointment Date/Time Appointment Type Appointme nt Facility Name Jul 08, 2023 11:00 AM AMBULATORY - MEDICINE [facility] [place] [facility] Jul 15, 2023 08:00 AM AMBULATORY - MEDICINE [facility] [place] [facility] Aug 05, 2023 04:00 PM AMBULATORY - PSYCHIATRY [facility] [place] [facility] Aug 18, 2023 12:00 PM AMBULATORY - MEDICINE [facility] [place] [facility] Sep 08, 2023 01:00 PM AMBULATORY - MEDICINE [facility] [place] [facility] Sep 08, 2023 01:30 PM AMBULATORY - MEDICINE [facility] [place] [facility] Oct 06, 2023 09:00 AM AMBULATORY - MEDICINE [facility] [place] [facility] Oct 07, 2023 01:00 PM AMBULATORY - PSYCHIATRY [facility] [place] [facility] Oct 25, 2023 11:00 AM AMBULATORY - MEDICINE [facility] [place] [facility] Nov 09, 2023 09:00 AM AMBULATORY - MEDICINE [facility] [place] [facility] Nov 17, 2023 09:30 AM AMBULATORY - MEDICINE [facility] [place] [facility] Jan 03, 2024 11:00 AM AMBULATORY - PSYCHIATRY [facility] [place] [facility] Social History: Smoking Status (Most current) and Tobacco Use (All prior to encounter date) This section includes the most current, and the historical, smoking and tobacco- related health factors from the [place] facility where the Encounter took place. Current Smoking Status This section includes the most current smoking, or tobacco-related health factor, from the [place] facility where the Encounter took place. Date/Time Current Smoking Status Comment Rosana kam Mar 31, 2023 11:00 AM VA-TOBACCO FORMER USER [facility] [place] [facility] Tobacco Use History This section includes a history of the smoking, or tobacco-related health factors, that were collected on or before the date of the Encounter. The data comes from the [place] facility where the Encounter took place. Date/Time Smoking Status/Tobac co Use Comment Facility Mar 31, 2023 11:00 AM VA-TOBACCO QUIT 1 TO < 5 YRS [facility] [place] [facility] Mar 25, 2022 10:30 AM VA-TOBACCO NEVER USED [facility] [place] [facility] Mar 19, 2021 02:00 PM VA-TOBACCO FORMER USER [facility] [place] [facility] Mar 19, 2021 02:00 PM VA-TOBACCO QUIT < 1 YEAR [facility] [place] [facility] Sep 20, 2018 11:24 AM VA-TOBACCO USE DECLINED TO ANSWER [facility] [place] [facility] Oct 21, 2017 08:13 AM QUIT TOBACCO USE IN PAST YEAR [facility] [place] [facility] Dec 30, 2016 08:28 AM QUIT TOBACCO USE 1-7 YEARS AGO [facility] [place] [facility] Jun 04, 2016 08:43 AM QUIT TOBACCO USE 1-7 YEARS AGO [facility] [place] [facility] May 17, 2015 08:45 AM QUIT TOBACCO USE 1-7 YEARS AGO quit 2 years ago. [facility] [place] [facility] Jun 07, 2014 09:25 AM QUIT TOBACCO USE 1-7 YEARS AGO [facility] [place] [facility] November 30, 2013 08:44 AM QUIT TOBACCO USE IN PAST YEAR [facility] [place] [facility] May 22, 2013 10:10 AM QUIT TOBACCO USE IN PAST YEAR [facility] [place] [facility] December 01, 2012 01:54 PM QUIT TOBACCO USE IN PAST YEAR [facility] [place] [facility] Jun 07, 2012 08:16 AM V1-PT DECLINES TOBACCO CESSATION MEDS [facility] [place] [facility] Jun 07, 2012 08:16 AM V1-PT THINKING ABOUT QUIT TOBACCO USE [facility] [place] [facility] Jan 05, 2012 09:00 AM CURRENT SMOKER intermittenly [facility] [place] [facility] Jan 05, 2012 09:00 AM V1-PT DECLINES REF [facility]CO [facility] [place] [facility] Jan 05, 2012 09:00 AM V1-PT DECLINES TOBACCO CESSATION [facility] [place] [facility] Jan 05, 2012 09:00 AM V1-PT THINKING ABOUT QUIT TOBACCO USE [facility] [place] [facility] Feb 17, 2011 09:52 AM V1-PT DECLINES [facility]BACCO [facility]ESSATION [facility] [place] [facility] Feb 17, 2011 09:52 AM V1-PT THINKING ABOUT QUIT [facility] [place] [facility] Aug 13, 2010 11:31 AM QUIT TOBACCO USE [facility]ST [facility] [place] [facility] Feb 19, 2010 01:26 PM QUIT TOBACCO USE [facility]ST [facility] [place] [facility] Sep 13, 2009 11:04 AM QUIT TOBACCO USE [facility]ST [facility] [place] [facility] Feb 05, 2009 08:29 AM V1-PT DECLINES REF TO TOBACCO CESS [facility] [place] [facility] Feb 05, 2009 08:29 AM V1-PT DECLINES TOBACCO CESSATION [facility] [place] [facility] Feb 05, 2009 08:29 AM V1-PT THINKING ABOUT QUIT [facility] [place] [facility] Aug 22, 2008 09:04 AM QUIT TOBACCO USE IN PAST YEAR [facility] [place] [facility] Mar 12, 2008 10:40 AM V1-PT DECLINES REF TO TOBACCO CESS PRGM [facility] [place] [facility] Mar 12, 2008 10:40 AM V1-PT DECLINES TOBACCO CESSATION MEDS [facility] [place] [facility] Mar 12, 2008 10:40 AM V1-PT NOT INTERESTED IN QUIT [facility]BACCO [facility] [place] [facility] Mar 08, 2008 09:37 AM CURRENT SMOKER smokes one pack a day for about 10 years ago. [facility] Encounter Notes: All associated encounter notes This section contains the clinical notes associated to the Encounter. Date/Time Encounter Note(s) Provider Source Jul 06, 2023 01:22 PM LETTERS: LOCAL TITLE: PATIENT LETTER (B) STANDARD TITLE: LETTERS DATE OF NOTE: JUL 06, 2023@13:22 ENTRY DATE: JUL 06, 2023@13:22:05 AUTHOR: LORI QUEVEDO COSIGNER: URGENCY: STATUS: COMPLETED [facility] Toll Free Number [facility] scheduling can be reached at ext. [phone] [facility]- ext. [phone] [facility]- ext. [phone] [facility]- ext. [phone] JUL 06, 2023 REID QUEZADA [address] [place], [place] [address] Dear SAMPLE,REID We would like to assist you in scheduling a ACTIVE MANAGMENT OF PAIN CONSULT appointment at the [place]. We have been unable to reach you by phone. To schedule this appointment please call us at ext. [phone]. Our booking appointment hours are Wednesday through Wednesday from 8:00 am to 4:00 pm. Please leave a message if you receive voicemail and let us know a good time and telephone number where we can reach you. If we dont hear back from you within 14 days from the date of this letter we will discontinue the request. If you have already scheduled this appointment, please disregard this letter. Your health is important to us. Sincerely, [facility] [address] [facility] [address] [place] [address] [place] [address] [facility] [address] [facility] [address] [place] [address] [place] [address] ext. [phone] [facility] [address] [facility] [address] [place] [address] [place], [place] [id number] ext. [phone] [facility] [address] [place] [address] ext. [phone] LORI QUEVEDO [facility]L [facility]
--- OUTSIDE RECORDS SUMMARY | 2024-07-05 03:08 | XMS_ITS | Encounter Summary ---
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 Address [address] [place] [address] Care Team Providers Care Youth Minister Name Role Phone ROMANA CASTILLO Primary Care [...] Garcia's Name Patient's Relationship to Policy Garcia [facility] (MEDICAID) [place] [facility] May 14, 2009 [id number] SAMPLE,ROCCO MOORE PATIENT [facility] May 14, 2009 [id number] SAMPLE,ROCCO MOORE PATIENT MEDICAID MEDICAID [facility] [place] Jul 26, 2018 MEDICAI D [id number] SAMPLE,ROCCO MOORE PATIENT MEDICARE (WNR) MEDICARE (M) PART A November 24, 2015 PART A [id number] SAMPLE,ROCCO MOORE PATIENT MEDICARE (WNR) MEDICARE (M) PART B November 24, 2015 PART B [id number] SAMPLE,ROCCO MOORE PATIENT Selected Encounter This section includes the information on record at [place] for the Encounter. Date/Time Encounter Type Encounter Description Reason Pro vider Source Sep 24, 2023 06:52 PM Outpatient Encounter ADMIN PAT ACTIVTIES (MASNONCT) IHE Encounter Template Text not used by [place] Plan of Treatment: Future Appointments (+ 6 [...] Date/Time Appointment Type Appointme nt Facility Name Oct 06, 2023 09:00 AM AMBULATORY - MEDICINE [place] [facility] [place] [facility] Oct 07, 2023 01:00 PM AMBULATORY - PSYCHIATRY [place] [facility] [place] [facility] Oct 25, 2023 11:00 AM AMBULATORY - MEDICINE [place] [facility] [place] [facility] Nov 09, 2023 09:00 AM AMBULATORY - MEDICINE [place] [facility] [place] [facility] Nov 17, 2023 09:30 AM AMBULATORY - MEDICINE [place] [facility] [place] [facility] Jan 03, 2024 11:00 AM AMBULATORY - PSYCHIATRY [place] [facility] [place] [facility] Jan 17, 2024 03:00 PM AMBULATORY - MEDICINE [place] [facility] [place] [facility] Jan 26, 2024 09:30 AM AMBULATORY - MEDICINE [place] [facility] [place] [facility] Feb 03, 2024 03:00 PM AMBULATORY - MEDICINE [place] [facility] [place] [facility] Feb 14, 2024 11:00 AM AMBULATORY - PSYCHIATRY [place] [facility] [place] [facility] Mar 06, 2024 09:00 AM AMBULATORY - MEDICINE [place] [facility] [place] [facility] Social History: Smoking Status (Most current) [...] 31, 2023 11:00 AM VA-TOBACCO FORMER USER [facility] Tobacco Use History This section includes a history of the smoking, or tobacco-related health factors, that were collected on or before the date of the Encounter. The data comes from the [place] facility where the Encounter took place. Date/Time Smoking Status/Tobac co Use Comment Facility Mar 31, 2023 11:00 AM VA-TOBACCO QUIT 1 TO < 5 YRS [place] [facility] [place] [facility] Mar 25, 2022 10:30 AM VA-TOBACCO NEVER USED [place] [facility] [place] [facility] Mar 19, 2021 02:00 PM VA-TOBACCO FORMER USER [place] [facility] [place] [facility] Mar 19, 2021 02:00 PM VA-TOBACCO QUIT < 1 YEAR [facility] [place] [facility] Sep 20, 2018 11:24 AM VA-TOBACCO USE DECLINED TO ANSWER [place] [facility] [place] [facility] Oct 21, 2017 08:13 AM QUIT TOBACCO USE IN PAST YEAR [place] [facility] [place] [facility] Dec 30, 2016 08:28 AM QUIT TOBACCO USE 1-7 YEARS AGO [place] [facility] [place] [facility] Jun 04, 2016 08:43 AM QUIT TOBACCO USE 1-7 YEARS AGO [place] [facility] [place] [facility] May 17, 2015 08:45 AM QUIT TOBACCO USE 1-7 YEARS AGO quit 2 years ago. [place] [facility] [place] [facility] Jun 07, 2014 09:25 AM QUIT TOBACCO USE 1-7 YEARS AGO [place] [facility] [place] [facility] November 30, 2013 08:44 AM QUIT TOBACCO USE IN PAST YEAR [place] [facility] [place] [facility] May 22, 2013 10:10 AM QUIT TOBACCO USE IN PAST YEAR [place] [facility] [place] [facility] December 01, 2012 01:54 PM QUIT TOBACCO USE IN PAST YEAR [place] [facility] [place] [facility] Jun 07, 2012 08:16 AM V1-PT DECLINES TOBACCO CESSATION MEDS [facility] Jun 07, 2012 08:16 AM V1-PT THINKING ABOUT QUIT TOBACCO USE [facility] [place] [facility] Jan 05, 2012 09:00 AM CURRENT SMOKER [facility]mitten[facility] [place] [facility] Jan 05, 2012 09:00 AM V1-PT DECLINES REF TO TOBACCO CESS [facility] [place] [facility] Jan 05, 2012 09:00 AM V1-PT DECLINES TOBACCO CESSATION MED[facility] [place] [facility] Jan 05, 2012 09:00 AM V1-PT THINKING ABOUT QUIT TOBACCO USE [facility] [place] [facility] Feb 17, 2011 09:52 AM V1-PT DECLINES TOBACCO CESSATION MED[facility] [place] [facility] Feb 17, 2011 09:52 AM V1-PT THINKING ABOUT QUIT TOBACCO [facility] [place] [facility] Aug 13, 2010 11:31 AM QUIT TOBACCO USE IN PAST YEAR [facility] Feb 19, 2010 01:26 PM QUIT TOBACCO USE IN PAST YEAR [facility] [place] [facility] Sep 13, 2009 11:04 AM QUIT TOBACCO USE IN PAST YEAR [facility] [place] [facility] Feb 05, 2009 08:29 AM V1-PT DECLINES REF TO TOBACCO CESS [facility] [place] [facility] Feb 05, 2009 08:29 AM V1-PT DECLINES TOBACCO CESSATION MEDS [facility] Feb 05, 2009 08:29 AM V1-PT THINKING ABOUT QUIT TOBACCO USE [facility] [place] [facility] Aug 22, 2008 09:04 AM QUIT TOBACCO USE IN PAST YEAR [place] [facility] [place] [facility] Mar 12, 2008 10:40 AM V1-PT DECLINES REF TO TOBACCO CESS PRGM [place] [facility] [place] [facility] Mar 12, 2008 10:40 AM V1-PT DECLINES TOBACCO CESSATION MEDS [place] [facility] [place] [facility] Mar 12, 2008 10:40 AM V1-PT NOT INTERESTED IN QUIT TOBACCO USE [facility] [place] [facility] Mar 08, 2008 09:37 AM CURRENT SMOKER smokes one pack a day for about 10 years ago. [facility] [place] [facility] Encounter Notes: All associated encounter notes This section contains the clinical notes associated to the Encounter. Date/Time Encounter Note(s) Provider Source Sep 24, 2023 06:52 PM PHARMACY NOTE: LOCAL TITLE: V1 PHARMACY CUSTOMER CARE MEDICATION RENEWAL STANDARD TITLE: PHARMACY NOTE DATE OF NOTE: SEP 24, 2023@18:52 ENTRY DATE: SEP 24, 2023@18:52:43 AUTHOR: AD MORRISON EXP COSIGNER: URGENCY: STATUS: COMPLETED Date: Sep Division: [facility] referred by Pharmacy Call Center for medication renewal: Controlled substance Medications requested: [id number] TEMAZEPAM 30MG CAP The requests [employer] for 09/24/2023* Defer to specialty clinic To be picked up. Please review and renew if appropriate. *This note was generated by [facility] Pharm[facility] Customer Care. If you have any questions or need assistance, do not contact this author. Please refer all questions to your local, on-site pharmacy departments. /divya/ AD MORRISON CPhT Manufacturing Machine Operator, [place]/Pharmacy Customer Care Signed: 09/24/2023 18:53 Receipt Acknowledged By: 09/27/2023 10:13 /es/ JAMIE HAWKINS JR, MD STAFF PSYCHIATRIST AD MORRISON [place] [facility]
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
--- OUTSIDE RECORDS SUMMARY | 2024-07-05 03:08 | XMS_ITS ---
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 [place] [facility] [place] [facility] [place] Address [address] [place] [id number] Care Team Providers Care Wholesale Parts Salesperson Name Role Phone ROMANA CASTILLO Primary Care [...] Garcia's Name Patient's Relationship to Policy Garcia [facility] (MEDICAID) [facility]ICAID [facility] May 14, 2009 [id number] SAMPLE,ROCCO MOORE PATIENT [facility] MEDICAID [facility] May 14, 2009 [id number] SAMPLE,ROCCO MOORE PATIENT MEDICAID MEDICAID [facility] ENR[facility] ESTEFANY Jul 26, 2018 MEDICAI D [id number] SAMPLE,ROCCO MOORE PATIENT MEDICARE (WNR) MEDICARE (M) PART A November 24, 2015 PART A [id number] SAMPLE,ROCCO MOORE PATIENT MEDICARE (WNR) MEDICARE (M) PART B November 24, 2015 PART B [id number] SAMPLE,ROCCO MOORE PATIENT Selected Encounter This section includes the information on record at [place] for the Encounter. Date/Time Encounter Type Encounter Description Reason Provider Source Jul 08, 2023 11:00 AM OFF/OP EST NOVEMBER X REQ PHY/QHP PRIMARY CARE/MEDICINE ICD-10-CM Z23 Encounter for immunization ROMANA CASTILLO IHEdwin Encounter Template Text not used by [place] Assessments - Encounter Diagnoses This section includes the primary and secondary diagnoses documented for the Encounter. Date/Time Primary/Secondary Diagnosis Diagnosis Name Provider Source Jul 20, 2023 01:16 PM PRIMARY Encounter for immunization KHADAR ENG [place] [facility] [place] [facility] Plan of Treatment: Future Appointments (+ 6 months) and Future Tests (+/- 45 days) The Plan of Treatment section includes future care activities for the patient from all [place] treatmentfacilities. This section includes future appointments and future orders which are active, pending or scheduled. Future Appointments This section includes appointments that were scheduled to occur 6 months from the date of the Encounter, up to a maximum of 20 appointments. The data comes from all [place] treatment facilities. Appointment Date/Time Appointment Type Appointme nt Facility Name Jul 15, 2023 08:00 AM AMBULATORY - MEDICINE [place] [facility] [place] [facility] Aug 05, 2023 04:00 PM AMBULATORY - PSYCHIATRY [facility] [place] [facility] Aug 18, 2023 12:00 PM AMBULATORY - MEDICINE [place] [facility] [place] [facility] Sep 08, 2023 01:00 PM AMBULATORY - MEDICINE [place] [facility] [place] [facility] Sep 08, 2023 01:30 PM AMBULATORY - MEDICINE [place] [facility] [place] [facility] Oct 06, 2023 09:00 AM AMBULATORY - MEDICINE [place] [facility] [place] [facility] Oct 07, 2023 01:00 PM AMBULATORY - PSYCHIATRY [place] [facility] [place] [facility] Oct 25, 2023 11:00 AM AMBULATORY - MEDICINE [place] [facility] [place] [facility] Nov 09, 2023 09:00 AM AMBULATORY - MEDICINE [place] [facility] [place] [facility] Nov 17, 2023 09:30 AM AMBULATORY - MEDICINE [place] [facility] [place] [facility] Jan 03, 2024 11:00 AM [facility] Immunizations: All administered on the encounter date This section contains immunizations associated to the Encounter. Immunization Series Date Issued Reaction Comments INFLUENZA, INJECTABLE, QUADR IVALENT, PRESERVATIVE FREE Jul 08, 2023 Social History: Smoking Status (Most current) and Tobacco Use (All prior to encounter date) This section includes the most current, and the historical, smoking and tobacco- related health factors from the [place] facility where the Encounter took place. Current Smoking Status This section includes the most current smoking, or tobacco-related health factor, from the [place] facility where the Encounter took place. Date/Time Current Smoking Status Comment [facility] Mar 31, 2023 11:00 AM VA-TOBACCO FOR[facility] USER [facility] Tobacco Use History This section includes a history of the smoking, or tobacco-related health factors, that were collected on or before the date of the Encounter. The data comes from the [place] facility where the Encounter took place. Date/Time Smoking Status/Tobac co Use Comment Facility Mar 31, 2023 11:00 AM VA-TOBACCO QUIT 1 TO < 5 YRS [facility] Mar 25, 2022 10:30 AM VA-TOBACCO NEVER USED [facility] Mar 19, 2021 02:00 PM [facility] [place] [facility] Mar 19, 2021 02:00 PM VA-TOBACCO QUIT < 1 YEAR [facility] [place] [facility] Sep 20, 2018 11:24 AM VA-TOBACCO USE DECLINED TO ANSWER [facility] Oct 21, 2017 08:13 AM QUIT TOBACCO USE IN PAST YEAR [facility] [place] [facility] Dec 30, 2016 08:28 AM QUIT TOBACCO USE 1-7 YEARS AGO [facility] [place] [facility] Jun 04, 2016 08:43 AM QUIT TOBACCO USE 1-7 YEARS AGO [facility] [place] [facility] May 17, 2015 08:45 AM QUIT TOBACCO USE 1-7 YEARS AGO quit 2 years ago. [facility] [place] [facility] Jun 07, 2014 09:25 AM QUIT TOBACCO USE 1-7 YEARS AGO [facility] [place] [facility] November 30, 2013 08:44 AM QUIT TOBACCO USE IN PAST YEAR [facility] [place] [facility] May 22, 2013 10:10 AM QUIT TOBACCO USE IN PAST YEAR [facility] [place] [facility] December 01, 2012 01:54 PM QUIT TOBACCO USE [facility]ST [facility] [place] [facility] Jun 07, 2012 08:16 AM V1-PT DECLINES TOBACCO CESSATION MEDS [facility] [place] [facility] Jun 07, 2012 08:16 AM V1-PT THINKING ABOUT QUIT TOBACCO USE [facility] [place] [facility] Jan 05, 2012 09:00 AM CURRENT SMOKER intermittenly [facility] [place] [facility] Jan 05, 2012 09:00 AM V1-PT DECLINES REF TO TOBACCO CESS [facility] [place] [facility] Jan 05, 2012 09:00 AM V1-PT DECLINES TOBACCO CESSATION MEDS [facility] [place] [facility] Jan 05, 2012 09:00 AM V1-PT THINKING ABOUT QUIT TOBACCO USE [facility] [place] [facility] Feb 17, 2011 09:52 AM V1-PT DECLINES TOBACCO CESSATION MEDS [facility] [place] [facility] Feb 17, 2011 09:52 AM V1-PT THINKING ABOUT QUIT TOBACCO USE [place] [facility] [place] [facility] Aug 13, 2010 11:31 AM QUIT TOBACCO USE [facility]ST [facility] [place] [facility] Feb 19, 2010 01:26 PM QUIT TOBACCO USE IN PAST YEAR [facility] [place] [facility] Sep 13, 2009 11:04 AM QUIT TOBACCO USE IN PAST YEAR [facility] [place] [facility] Feb 05, 2009 08:29 AM V1-PT DECLINES REF TO TOBACCO CESS PRGM [place] [facility] [place] [facility] Feb 05, 2009 08:29 AM V1-PT DECLINES TOBACCO CESSATION MEDS [facility] [place] [facility] Feb 05, 2009 08:29 AM V1-PT THINKING ABOUT QUIT TOBACCO USE [facility] [place] [facility] Aug 22, 2008 09:04 AM QUIT TOBACCO USE IN PAST YEAR [facility] [place] [facility] Mar 12, 2008 10:40 AM V1-PT DECLINES REF TO TOBACCO CESS PRGM [facility] Mar 12, 2008 10:40 AM V1-PT DECLINES TOBACCO CESSATION MEDS [facility] Mar 12, 2008 10:40 AM V1-PT NOT INTERESTED IN QUIT TOBACCO USE [facility] Mar 08, 2008 09:37 AM CURRENT SMOKER smokes one pack a day for about 10 years ago. [facility] Encounter Notes: All associated encounter notes This section contains the clinical notes associated to the Encounter. Date/Time Encounter Note(s) Provider Source Jul 08, 2023 11:14 AM PREVENTIVE MEDICIN E NURSING NOTE: LOCAL TITLE: CLINICAL REMINDERS/NURSING STANDARD TITLE: PREVENTIVE MEDICINE NURSING NOTE DATE OF NOTE: JUL 08, 2023@11:14 ENTRY DATE: JUL 08, 2023@11:14:53 AUTHOR: OREN CAZARES EXP COSIGNER: URGENCY: STATUS: COMPLETED Influenza Immunization: The patient was given the influenza VIS which lists the benefits and side effects of the vaccine and which reviews the risks of not receiving the flu vaccine. The VIS was reviewed with the patient and they were given an opportunity to ask questions. The patient was provided education on how to decrease the risk of influenza infection including social distancing and use of good hand hygiene. The patient denied any prior severe reaction to the flu vaccine or its components. The patient gave verbal consent to receive the vaccine. Influenza, Quadrivalent preservative free (Fluzone - syringe) Administered: INFLUENZA, INJECTABLE, QUADRIVALENT, PRESERVATIVE FREE Date Administered: Jul 08, 2023 11:00 Series: Complete Concrete Pump Operator: SANOFI PASTEUR Lot: [id number] Exp Date: Jan 23, 2024 [facility]: [phone] Admin Route/Site: INTRAMUSCULAR/RIGHT DELTOID Dosage: 0.5mL Vaccine Information Statement(s): INFLUENZA(FLU) VACC(INACTIVATED OR RECOMBINANT)VIS Feb 28, 2021 (MONGOLIAN) Order By: Policy Administered By: Oren Cazares /divya/ OREN CAZARES LPN License Practical Nurse Signed: 07/08/2023 11:15 OREN CAZARES [facility]
--- OUTSIDE RECORDS SUMMARY | 2024-07-05 03:08 | XMS_ITS | Encounter Summary ---
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 ([place]) Organization Department of Veter[place] Address [address] [place] [id number] Care Team Providers Care Financial Services Auditor Name Role Phone ROMANA CASTILLO Primary Care [...] Garcia's Name Patient's Relationship to Policy Garcia [facility] (MEDICAID) [facility] May 14, 2009 [id number] SAMPLE,ROCCO MOORE PATIENT [facility]ICA[facility] May 14, 2009 [id number] SAMPLE,ROCCO MOORE PATIENT MEDICAID MEDICAID [facility] Jul 26, 2018 MEDICAI D [id number] SAMPLE,ROCCO MOORE PATIENT MEDICARE (WNR) MEDICARE (M) PART A November 24, 2015 PART A [id number] SAMPLE,ROCCO MOORE PATIENT MEDICARE (WNR) MEDICARE (M) PART B November 24, 2015 PART B [id number] ROCCO QUEZADA PATIENT Selected Encounter This section includes the information on record at [place] for the Encounter. Date/Time Encounter Type Encounter Description Reason Pro vider Source Oct 05, 2023 09:51 AM Outpatient Encounter PAIN CLINIC IHE Encounter Template Text not used by [place] Plan of Treatment: Future Appointments (+ 6 months) and Future Tests (+/- 45 days) The Plan of Treatment section includes future care activities for the patient from all [place] treatmentfacilities. This section includes future appointments and future orders which are active, pending or scheduled. Future Appointments This section includes appointments that were scheduled to occur 6 months from the date of the Encounter, up to a maximum of 20 appointments. The data comes from all [place] treatment facilities. Appointment Date/Time Appointment Type Appointme nt Facility Name Oct 06, 2023 09:00 AM AMBULATORY - MEDICINE [place] [facility] [place] [facility] Oct 07, 2023 01:00 PM AMBULATORY - PSYCHIATRY [facility] [place] [facility] Oct 25, 2023 11:00 AM AMBULATORY - MEDICINE [place] [facility] [place] [facility] Nov 09, 2023 09:00 AM AMBULATORY - MEDICINE [place] [facility] [place] [facility] Nov 17, 2023 09:30 AM AMBULATORY - MEDICINE [place] [facility] [place] [facility] Jan 03, 2024 11:00 AM AMBULATORY - PSYCHIATRY [facility] [place] [facility] Jan 17, 2024 03:00 PM AMBULATORY - MEDICINE [place] [facility] [place] [facility] Jan 26, 2024 09:30 AM AMBULATORY - MEDICINE [place] [facility] [place] [facility] Feb 03, 2024 03:00 PM AMBULATORY - MEDICINE [place] [facility] [place] [facility] Feb 14, 2024 11:00 AM AMBULATORY - PSYCHIATRY [facility] [place] [facility] Mar 06, 2024 09:00 AM AMBULATORY - MEDICINE [place] [facility] [place] [facility] Apr 03, 2024 11:30 AM AMBULATORY - MEDICINE [place] [facility] [place] [facility] Social History: Smoking Status (Most current) and Tobacco Use (All prior to encounter date) This section includes the most current, and the historical, smoking and tobacco- related health factors from the [place] facility where the Encounter took place. Current Smoking Status This section includes the most current smoking, or tobacco-related health factor, from the [place] facility where the Encounter took place. Date/Time Current Smoking Status Comment Facil it Mar 31, 2023 11:00 AM VA-TOBACCO FORMER USER [facility] Tobacco Use History This section includes a history of the smoking, or tobacco-related health factors, that were collected on or before the date of the Encounter. The data comes from the [place] facility where the Encounter took place. Date/Time Smoking Status/Tobac co Use Comment Facility Mar 31, 2023 11:00 AM VA-TOBACCO QUIT 1 TO < 5 YRS [facility] [place] [facility] Mar 25, 2022 10:30 AM VA-TOBACCO NEVER USED [facility] [place] [facility] Mar 19, 2021 02:00 PM VA-TOBACCO FORMER USER [facility] [place] [facility] Mar 19, 2021 02:00 PM VA-TOBACCO QUIT < 1 YEAR [facility] [place] [facility] Sep 20, 2018 11:24 AM VA-TOBACCO USE DECLINED TO ANSWER [facility] [place] [facility] Oct 21, 2017 08:13 AM QUIT TOBACCO USE IN PAST YEAR [facility] [place] [facility] Dec 30, 2016 08:28 AM QUIT TOBACCO USE 1-7 YEARS AGO [facility] [place] [facility] Jun 04, 2016 08:43 AM QUIT TOBACCO USE 1-7 YEARS AGO [facility] [place] [facility] May 17, 2015 08:45 AM QUIT TOBACCO USE 1-7 YEARS AGO quit 2 years ago. [facility] [place] [facility] Jun 07, 2014 09:25 AM QUIT TOBACCO USE 1-7 YEARS AGO [facility] [place] [facility] November 30, 2013 08:44 AM QUIT TOBACCO USE IN PAST YEAR [facility] [place] [facility] May 22, 2013 10:10 AM QUIT TOBACCO USE IN PAST YEAR [facility] [place] [facility] December 01, 2012 01:54 PM QUIT TOBACCO USE IN PAST YEAR [facility] [place] [facility] Jun 07, 2012 08:16 AM V1-PT DECLINES TOBACCO CESSATION MEDS [facility] [place] [facility] Jun 07, 2012 08:16 AM V1-PT THINKING ABOUT QUIT TOBACCO USE [facility] [place] [facility] Jan 05, 2012 09:00 AM CURRENT SMOKER intermittenly [facility] [place] [facility] Jan 05, 2012 09:00 AM V1-PT DECLINES REF TO TOBACCO CESS [facility] [place] [facility] Jan 05, 2012 09:00 AM V1-PT DECLINES TOBACCO CESSATION MEDS [facility] [place] [facility] Jan 05, 2012 09:00 AM V1-PT THINKING ABOUT QUIT TOBACCO USE [facility] [place] [facility] Feb 17, 2011 09:52 AM V1-PT DECLINES TOBACCO CESSATION MEDS [facility] [place] [facility] Feb 17, 2011 09:52 AM V1-PT THINKING ABOUT QUIT TOBACCO USE [place] [facility] [facility] Aug 13, 2010 11:31 AM QUIT [facility]BAC[facility] [place] [facility] Feb 19, 2010 01:26 PM QUIT TOBACCO USE IN PAST YEAR [facility] [place] [facility] Sep 13, 2009 11:04 AM QUIT TOBACCO USE [facility] PAST YEAR [facility] [place] [facility] Feb 05, 2009 08:29 AM V1-PT DECLINES REF TO TOBACCO CESS PR[facility] [place] [facility] Feb 05, 2009 08:29 AM V1-PT DECLINES TOBACCO CESSATION MEDS [facility] [place] [facility] Feb 05, 2009 08:29 AM V1-PT THINKING ABOUT QUIT TOBACCO USE [facility] [place] [place] [facility] Aug 22, 2008 09:04 AM QUIT TOBACCO USE IN PAST YEAR [facility] [place] [facility] Mar 12, 2008 10:40 AM V1-PT DECLINES REF TO TOBACCO CESS PRGM [facility] [place] [place] [facility] Mar 12, 2008 10:40 AM V1-PT DECLINES TOBACCO CESSATION MEDS [facility] [place] [facility] Mar 12, 2008 10:40 AM V1-PT NOT INTERESTED IN QUIT TOBACCO USE [facility] [place] [facility] Mar 08, 2008 09:37 AM CURRENT SMOKER smokes one pack a day for about 10 years ago. [facility] [place] [facility] Encounter Notes: All associated encounter notes This section contains the clinical notes associated to the Encounter. Date/Time Encounter Note(s) Provider Source Oct 05, 2023 09:51 AM TELEPHONE ENCOUNTE R NOTE: LOCAL TITLE: TELEPHONE NOTE/SPECIALTY CLINIC STANDARD TITLE: TELEPHONE ENCOUNTER NOTE DATE OF NOTE: OCT 05, 2023@09:51 ENTRY DATE: OCT 05, 2023@09:51:24 AUTHOR: LORI QUEVEDO COSIGNER: URGENCY: STATUS: COMPLETED Called and spoke with pt to remind them that they have a VVC appt with the Pain clinic on 10/06/2023 at 0900. /divya/ LORI QUEVEDO Signed: 10/05/2023 09:51 LORI QUEVEDO [facility]
--- OUTSIDE RECORDS SUMMARY | 2024-07-05 03:08 | XMS_ITS | Encounter Summary ---
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 [facility] [place] Address [address] [place] [id number] Care Team Providers Care Consolidation Accountant Name Role Phone ROMANA CASTILLO Primary Care [...] Garcia's Name Patient's Relationship to Policy Garcia [facility] (MEDICAID) [facility] May 14, 2009 [id number] SAMPLE,ROCCO MOORE PATIENT [facility] MEDICAID [facility] May 14, 2009 [id number] SAMPLE,ROCCO MOORE PATIENT MEDICAID MEDICAID [facility] [place] Jul 26, 2018 MEDICAI D [id number] SAMPLE,ROCCO MOORE PATIENT MEDICARE (WNR) MEDICARE (M) PART A November 24, 2015 PART A [id number] SAMPLE,ROCCO MOORE PATIENT MEDICARE (WNR) MEDICARE (M) PART B November 24, 2015 PART B [id number] ROCCO QUEZADA PATIENT Selected Encounter This section includes the information on record at [place] for the Encounter. Date/Time Encounter Type Encounter Description Reason Pro vider Source Sep 30, 2023 12:00 AM Outpatient Encounter EVENT (HISTORICAL) IHE Encounter Template Text not used by [place] Plan of Treatment: Future Appointments (+ 6 months) and Future Tests (+/- 45 days) The Plan of Treatment section includes future care activities for the patient from all [place] treatmentfacilities. This section includes future appointments and future orders which are active, pending or scheduled. Future Appointments This section includes appointments that were scheduled to occur 6 months from the date of the Encounter, up to a maximum of 20 appointments. The data comes from all [place] treatment facilities. Appointment Date/Time Appointment Type Appointme nt Facility Name Oct 06, 2023 09:00 AM AMBULATORY - MEDICINE [place] [facility] [place] [facility] Oct 07, 2023 01:00 PM AMBULATORY - PSYCHIATRY [place] [facility] [place] [facility] Oct 25, 2023 11:00 AM AMBULATORY - MEDICINE [place] C [facility] [place] [facility] Nov 09, 2023 09:00 AM AMBULATORY - MEDICINE [place] C [facility] [place] [facility] Nov 17, 2023 09:30 AM AMBULATORY - MEDICINE [place] [facility] [place] [facility] Jan 03, 2024 11:00 AM AMBULATORY - PSYCHIATRY [place] [facility] [place] [facility] Jan 17, 2024 03:00 PM AMBULATORY - MEDICINE [place] C [facility] [place] [facility] Jan 26, 2024 09:30 AM AMBULATORY - MEDICINE [place] C [facility] [place] [facility] Feb 03, 2024 03:00 PM AMBULATORY - MEDICINE [place] C [facility] [place] [facility] Feb 14, 2024 11:00 AM AMBULATORY - PSYCHIATRY [place] [facility] [place] [facility] Mar 06, 2024 09:00 AM AMBULATORY - MEDICINE [place] C [facility] [place] [facility] Social History: Smoking Status (Most current) and Tobacco Use (All prior to encounter date) This section includes the most current, and the historical, smoking and tobacco- related health factors from the [facility] facility where the Encounter took place. Current Smoking Status This section includes the most current smoking, or tobacco-related health factor, from the VA facility where the Encounter took place. Date/Time Current Smoking Status Comment Rosana it Mar 31, 2023 11:00 AM [facility]ACCO [facility] Tobacco Use History This section includes a history of the smoking, or tobacco-related health factors, that were collected on or before the date of the Encounter. The data comes from the [place] facility where the Encounter took place. Date/Time Smoking Status/Tobac co Use Comment Facility Mar 31, 2023 11:00 AM VA-TOBACCO QUIT 1 TO < 5 YRS [facility] [place] [facility] Mar 25, 2022 10:30 AM VA-TOBACCO NEVER USED [place] CNTR [facility] [place] [facility] Mar 19, 2021 02:00 PM VA-TOBACCO FORMER USER [facility] [place] [facility] Mar 19, 2021 02:00 PM VA-TOBACCO QUIT < [facility] Sep 20, 2018 11:24 AM VA-TOBACCO USE DECLINED TO ANSWER [facility] [place] [facility] Oct 21, 2017 08:13 AM QUIT TOBACCO USE IN PAST YEAR [facility] [place] [facility] Dec 30, 2016 08:28 AM QUIT TOBACCO USE 1-7 YEARS AGO [facility] [place] [facility] Jun 04, 2016 08:43 AM QUIT TOBACCO USE 1-7 YEARS AGO [place] CNT [facility] [place] [facility] May 17, 2015 08:45 AM QUIT TOBACCO USE 1-7 YEARS AGO quit 2 years ago. [facility] [place] [facility] Jun 07, 2014 09:25 AM QUIT TOBACCO USE 1-7 YEARS AGO [place] CNT [facility] [place] [facility] November 30, 2013 08:44 AM QUIT TOBACCO USE IN PAST YEAR [facility] [place] [facility] May 22, 2013 10:10 AM QUIT TOBACCO USE IN PAST YEAR [facility] [place] [facility] December 01, 2012 01:54 PM QUIT TOBACCO USE IN PAST YEAR [facility] [place] [facility] Jun 07, 2012 08:16 AM V1-PT DECLINES TOBACCO CESSATION MEDS [facility] Jun 07, 2012 08:16 AM V1-PT THINKING ABOUT QUIT TOBACCO USE [facility] [place] [facility] Jan 05, 2012 09:00 AM CURRENT SMOKER intermittenly [place] CNTR [facility] [place] [facility] Jan 05, 2012 09:00 AM V1-PT DECLINES REF TO TOBACCO CESS PRGM [place] [facility]TR [facility] [place] [facility] Jan 05, 2012 09:00 AM V1-PT DECLINES TOBACCO CESSATION MEDS [place] [facility] [place] [facility] Jan 05, 2012 09:00 AM V1-PT THINKING ABOUT QUIT TOBACCO USE [place] [facility] [place] [facility] Feb 17, 2011 09:52 AM V1-PT DECLINES TOBACCO CESSATION MEDS [facility] [place] [facility] Feb 17, 2011 09:52 AM V1-PT THINKING ABOUT QUIT TOBACCO USE [place] [facility] [place] [facility] Aug 13, 2010 11:31 AM QUIT TOBACCO USE [facility]ST [facility] [place] [facility] Feb 19, 2010 01:26 PM QUIT TOBACCO USE IN PAST [facility]AR [facility] [place] [facility] Sep 13, 2009 11:04 AM QUIT TOBACCO USE IN [facility]ST YEAR [facility] [place] [facility] Feb 05, 2009 08:29 AM V1-PT DECLINES REF TO TOBACCO CESS PRGM [facility] [place] [facility] Feb 05, 2009 08:29 AM V1-PT DECLINES TOBACCO CESSATION MEDS [facility] [place] [facility] Feb 05, 2009 08:29 AM V1-PT THINKING ABOUT QUIT TOBACCO USE [facility] [place] [facility] Aug 22, 2008 09:04 AM QUIT TOBACCO USE IN PAST YEAR [place] [facility]TR [facility] [place] [facility] Mar 12, 2008 10:40 AM V1-PT DECLINES REF TO TOBACCO CESS PRGM [place] [facility]TR [facility] [place] [facility] Mar 12, 2008 10:40 AM V1-PT DECLINES TOBACCO CESSATION MEDS [place] [facility] [place] [facility] Mar 12, 2008 10:40 AM V1-PT NOT INTERESTED IN QUIT TOBACCO USE [place] [facility] [place] [facility] Mar 08, 2008 09:37 AM CURRENT SMOKER smokes one pack a day for about 10 years ago. [facility] [place] [facility] Encounter Notes: All associated encounter notes This section contains the clinical notes associated to the Encounter. Date/Time Encounter Note(s) Provider Source Sep 30, 2023 12:00 AM NONVA NOTE: LOCAL TITLE: NON-[facility] STANDARD TITLE: NONVA NOTE DATE OF NOTE: SEP 30, 2023 ENTRY DATE: OCT 06, 2023@15:47:25 AUTHOR: JO ALLAN EXP COSIGNER: URGENCY: STATUS: COMPLETED VistA Imaging - Scanned Document SCANNED DOCUMENT SIGNATURE NOT REQUIRED Electronically Filed: 10/06/2023 by: JO ALLAN LICENSED PRACTICAL NURSE JO ALLAN CNTRL [facility]
--- OUTSIDE RECORDS SUMMARY | 2024-07-05 03:08 | XMS_ITS | Encounter Summary ---
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 [facility] [place] [facility] [place] Address [address] [place] [id number] Care Team Providers Care Transportation Mechanic Name Role Phone ROMANA CASTILLO Primary Care [...] Garcia's Name Patient's Relationship to Policy Garcia [facility] (MEDICAID) [facility] May 14, 2009 [id number] SAMPLE,ROCCO MOORE PATIENT [facility] MEDICAID [facility]AN [facility] May 14, 2009 [id number] SAMPLE,ROCCO MOORE PATIENT MEDICAID MEDICAID [facility] [place] Jul 26, 2018 MEDICAI D [id number] SAMPLE,ROCCO MOORE PATIENT MEDICARE (WNR) MEDICARE (M) PART A November 24, 2015 PART A [id number] SAMPLE,ROCCO MOORE PATIENT MEDICARE (WNR) MEDICARE (M) PART B November 24, 2015 PART B [id number] [phone] [id number] ROCCO QUEZADA PATIENT Selected Encounter This section includes the information on record at [place] for the Encounter. Date/Time Encounter Type Encounter Description Reason Pro vider Source Sep 17, 2023 12:00 AM Outpatient Encounter EVENT (HISTORICAL) IHE Encounter Template Text not used by [place] Plan of Treatment: Future Appointments (+ 6 months) and Future Tests (+/- 45 days) The Plan of Treatment section includes future care activities for the patient from all [place] treatmentfacilities. This section includes future appointments and future orders which are active, pending or scheduled. Future Appointments This section includes appointments that were scheduled to occur 6 months from the date of the Encounter, up to a maximum of 20 appointments. The data comes from all [place] treatment facilities. Appointment Date/Time Appointment Type Appointme nt Facility Name Oct 06, 2023 09:00 AM AMBULATORY - MEDICINE [place] [facility] [place] [facility] Oct 07, 2023 01:00 PM AMBULATORY - PSYCHIATRY [place] [facility] [place] [facility] Oct 25, 2023 11:00 AM AMBULATORY - MEDICINE [place] C [facility] [place] [facility] Nov 09, 2023 09:00 AM AMBULATORY - MEDICINE [place] C [facility] [place] [facility] Nov 17, 2023 09:30 AM AMBULATORY - MEDICINE [place] C [facility] [place] [facility] Jan 03, 2024 11:00 AM AMBULATORY - PSYCHIATRY [place] [facility] [place] [facility] Jan 17, 2024 03:00 PM AMBULATORY - MEDICINE [place] C [facility] [place] [facility] Jan 26, 2024 09:30 AM AMBULATORY - MEDICINE [place] C [facility] [place] [facility] Feb 03, 2024 03:00 PM AMBULATORY - MEDICINE [place] C [facility] [place] [facility] Feb 14, 2024 11:00 AM AMBULATORY - PSYCHIATRY [place] [facility] [place] [facility] Mar 06, 2024 09:00 AM AMBULATORY - MEDICINE [place] C [facility] [place] [facility] Social History: Smoking Status (Most current) and Tobacco Use (All prior to encounter date) This section includes the most current, and the historical, smoking and tobacco- related health factors from the [place] facility where the Encounter took place. Current Smoking Status This section includes the most current smoking, or tobacco-related health factor, from the [place] facility where the Encounter took place. Date/Time Current Smoking Status Comment Facil it Mar 31, 2023 11:00 AM VA[facility]ACCO [facility] Tobacco Use History This section includes a history of the smoking, or tobacco-related health factors, that were collected on or before the date of the Encounter. The data comes from the [place] facility where the Encounter took place. Date/Time Smoking Status/Tobac co Use Comment Facility Mar 31, 2023 11:00 AM VA-TOBACCO QUIT 1 TO < 5 YRS [facility] [place] [facility] Mar 25, 2022 10:30 AM VA-TOBACCO NEVER USED [facility] [place] [facility] Mar 19, 2021 02:00 PM VA-TOBACCO FORMER USER [facility] [place] [facility] Mar 19, 2021 02:00 PM VA-TOBACCO QUIT < 1 YE[facility] Sep 20, 2018 11:24 AM VA-TOBACCO USE [facility] [place] [facility] Oct 21, 2017 08:13 AM QUIT TOBACCO USE IN PAST YEAR [facility] [place] [facility] Dec 30, 2016 08:28 AM QUIT TOBACCO USE 1-7 YEARS AGO [facility] [place] [facility] Jun 04, 2016 08:43 AM QUIT TOBACCO USE 1-7 YEARS AGO [facility] [place] [facility] May 17, 2015 08:45 AM QUIT TOBACCO USE 1-7 YEARS AGO quit 2 years ago. [facility] [place] [facility] Jun 07, 2014 09:25 AM QUIT TOBACCO USE 1-7 YEARS AGO [place] CNT [facility] [place] [facility] November 30, 2013 08:44 AM QUIT TOBACCO USE IN PAST YEAR [facility] [place] [facility] May 22, 2013 10:10 AM QUIT TOBACCO USE IN PAST YEAR [facility] [place] [facility] December 01, 2012 01:54 PM QUIT TOBACCO USE IN PAST YEAR [facility] [place] [facility] Jun 07, 2012 08:16 AM V1-PT DECLINES TOBACCO CESSATION MEDS [facility] Jun 07, 2012 08:16 AM V1-PT THINKING ABOUT QUIT [facility] [place] [facility] Jan 05, 2012 09:00 AM CURRENT SMOKER intermittenly [place] CNTR [facility] [place] [facility] Jan 05, 2012 09:00 AM V1-PT DECLINES REF TO TOBACCO CESS PRGM [place] CNTR [facility] [place] [facility] Jan 05, 2012 09:00 AM V1-PT DECLINES TOBACCO [facility]ESSATION [facility] [place] [facility] Jan 05, 2012 09:00 AM V1-PT THINKING ABOUT QUIT TOBACCO USE [place] CNTR [facility] [place] [facility] Feb 17, 2011 09:52 AM V1-PT DECLINES TOBACCO CESSATION [facility] [place] [facility] Feb 17, 2011 09:52 AM V1-PT THINKING ABOUT QUIT TOBACCO USE [place] CNTR [facility] [place] [facility] Aug 13, 2010 11:31 AM QUIT TOBACCO USE IN [facility]ST YE[facility] [place] [facility] Feb 19, 2010 01:26 PM QUIT TOBACCO USE IN [facility]ST [facility] [place] [facility] Sep 13, 2009 11:04 AM QUIT TOBACCO USE [facility]ST [facility] [place] [facility] Feb 05, 2009 08:29 AM V1-PT DECLINES REF TO TOBACCO CESS PRGM [facility] [place] [facility] Feb 05, 2009 08:29 AM V1-PT DECLINES TOBACCO CESSATION MEDS [facility] [place] [facility] Feb 05, 2009 08:29 AM V1-PT THINKING ABOUT QUIT [facility]BACCO [facility] [place] [facility] Aug 22, 2008 09:04 AM QUIT TOBACCO USE IN PAST YEAR [place] CNTR [facility] [place] [facility] Mar 12, 2008 10:40 AM V1-PT DECLINES REF TO TOBACCO CESS PRGM [place] CNTR [facility] [facility] Mar 12, 2008 10:40 AM V1-PT DECLINES TOBACCO CESSATION MEDS [place] CNTR [facility] [place] [facility] Mar 12, 2008 10:40 AM V1-PT NOT INTERESTED IN QUIT TOBACCO USE [place] CNTR [facility] [place] [facility] Mar 08, 2008 09:37 AM CURRENT SMOKER smokes one pack a day for about 10 years ago. [facility] [place] [facility] Encounter Notes: All associated encounter notes This section contains the clinical notes associated to the Encounter. Date/Time Encounter Note(s) Provider Source Sep 17, 2023 12:00 AM NONVA NOTE: LOCAL TITLE: NON-[facility] STANDARD TITLE: NONVA NOTE DATE OF NOTE: SEP 17, 2023 ENTRY DATE: SEP 27, 2023@11:59:04 AUTHOR: SURAJ MARTIN EXP COSIGNER: URGENCY: STATUS: COMPLETED VistA Imaging - Scanned Document SCANNED DOCUMENT SIGNATURE NOT REQUIRED Electronically Filed: 09/27/2023 by: SURAJ LUNA CNTRL [facility]
--- OUTSIDE RECORDS SUMMARY | 2024-07-05 03:10 | XMS_ITS ---
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 Organization [place] Address [address] [place] [id number] Care Team Providers Care Wrapper Off Name Role Phone ROMANA CASTILLO Primary Care [...] Garcia's Name Patient's Relationship to Policy Garcia [facility] (MEDICAID) [facility] May 14, 2009 [id number] SAMPLE,ROCCO MOORE PATIENT [facility] MEDICAID [facility] May 14, 2009 [id number] SAMPLE,ROCCO MOORE PATIENT MEDICAID MEDICAID [facility] Jul 26, 2018 MEDICAI D [id number] SAMPLE,ROCCO MOORE PATIENT MEDICARE (WNR) MEDICARE (M) PART A November 24, 2015 PART A [id number] [id number] SAMPLE,ROCCO MOORE PATIENT MEDICARE (WNR) MEDICARE (M) PART B November 24, 2015 PART B [id number] [id number] ROCCO QUEZADA PATIENT Selected Encounter This section includes the information on record at [place] for the Encounter. Date/Time Encounter Type Encounter Description Reason Pro vider Source Oct 14, 2023 09:13 AM Outpatient Encounter PRIMARY CARE/MEDICINE IHE Encounter Template Text not used by [place] Plan of Treatment: Future Appointments (+ 6 months) and Future Tests (+/- 45 days) The Plan of Treatment section includes future care activities for the patient from all [place] treatmentfacilities. This section includes future appointments and future orders which are active, pending or scheduled. Future Appointments This section includes appointments that were scheduled to occur 6 months from the date of the Encounter, up to a maximum of 20 appointments. The data comes from all [place] treatment facilities. Appointment Date/Time Appointment Type Appointme nt Facility Name Oct 25, 2023 11:00 AM AMBULATORY - MEDICINE [place] [facility] [place] [facility] Nov 09, 2023 09:00 AM AMBULATORY - MEDICINE [place] [facility] [place] [facility] Nov 17, 2023 09:30 AM AMBULATORY - MEDICINE [place] [facility] [place] [facility] Jan 03, 2024 11:00 AM AMBULATORY - PSYCHIATRY [facility] [place] [facility] Jan 17, 2024 03:00 PM AMBULATORY - MEDICINE [place] [facility] [place] [facility] Jan 26, 2024 09:30 AM AMBULATORY - MEDICINE [place] [facility] [place] [facility] Feb 03, 2024 03:00 PM AMBULATORY - MEDICINE [place] [facility] [place] [facility] Feb 14, 2024 11:00 AM AMBULATORY - PSYCHIATRY [facility] [place] [facility] Mar 06, 2024 09:00 AM AMBULATORY - MEDICINE [facility] [place] [facility] Apr 03, 2024 11:30 AM AMBULATORY - MEDICINE [place] [facility] [place] [facility] Apr 13, 2024 11:00 AM AMBULATORY - PSYCHIATRY [facility] [place] [facility] Apr 13, 2024 02:00 PM AMBULATORY - MEDICINE [facility] [place] [facility] Apr 13, 2024 03:00 PM AMBULATORY - MEDICINE MA [facility] [place] [facility] Social History: Smoking Status (Most [...] place. Date/Time Current Smoking Status Comment Rosana humphrey Mar 31, 2023 11:00 AM VA-TOBACCO FORMER USER [facility] Tobacco Use History This section includes a history of the smoking, or tobacco-related health factors, that were collected on or before the date of the Encounter. The data comes from the [place] facility where the Encounter took place. Date/Time Smoking Status/Tobac co Use Comment Facility Mar 31, 2023 11:00 AM VA-TOBACCO QUIT 1 TO < 5 YRS [place] [facility] [place] [facility] Mar 25, 2022 10:30 AM VA-TOBACCO NEVER USED [place] [facility] [place] [facility] Mar 19, 2021 02:00 PM VA-TOBACCO FORMER USER [place] [facility] [place] [facility] Mar 19, 2021 02:00 PM VA-TOBACCO QUIT < 1 YEAR [place] [facility] [place] [facility] Sep 20, 2018 11:24 AM VA-TOBACCO USE DECLINED TO ANSWER [place] [facility] [place] [facility] Oct 21, 2017 08:13 AM QUIT TOBACCO USE IN PAST YEAR [place] [facility] [place] [facility] Dec 30, 2016 08:28 AM QUIT TOBACCO USE 1-7 YEARS AGO [place] [facility] [place] [facility] Jun 04, 2016 08:43 AM QUIT TOBACCO USE 1-7 YEARS AGO [facility] [place] [facility] May 17, 2015 08:45 AM QUIT TOBACCO USE 1-7 YEARS AGO quit 2 years ago. [place] [facility] [place] [facility] Jun 07, 2014 09:25 AM QUIT TOBACCO USE 1-7 YEARS AGO [place] [facility] [place] [facility] November 30, 2013 08:44 AM QUIT TOBACCO USE IN PAST YEAR [place] [facility] [place] [facility] May 22, 2013 10:10 AM QUIT TOBACCO USE IN PAST YEAR [place] [facility] [place] [facility] December 01, 2012 01:54 PM QUIT TOBACCO USE IN PAST YEAR [place] [facility] [place] [facility] Jun 07, 2012 08:16 AM V1-PT DECLINES TOBACCO CESSATION MEDS [facility] [place] [facility] Jun 07, 2012 08:16 AM V1-PT THINKING ABOUT QUIT TOBACCO USE [facility] [place] [facility] Jan 05, 2012 09:00 AM CURRENT SMOKER intermittenly [facility] [place] [facility] Jan 05, 2012 09:00 AM V1-PT DECLINES REF TO TOBACCO CESS PRGM [facility] [place] [facility] Jan 05, 2012 09:00 AM V1-PT DECLINES TOBACCO CESSATION MEDS [facility] [place] [facility] Jan 05, 2012 09:00 AM V1-PT THINKING ABOUT QUIT TOBACCO USE [facility] [place] [facility] Feb 17, 2011 09:52 AM V1-PT DECLINES TOBACCO CESSATION MEDS [facility] [place] [facility] Feb 17, 2011 09:52 AM V1-PT THINKING ABOUT QUIT TOBACCO USE [facility] [place] [facility] Aug 13, 2010 11:31 AM QUIT TOBACCO USE IN PAST YEAR [facility] [place] [facility] Feb 19, 2010 01:26 PM QUIT TOBACCO USE IN PAST YEAR [place] [facility] [place] [facility] Sep 13, 2009 11:04 AM QUIT TOBACCO USE IN PAST YEAR [place] [facility] [place] [facility] Feb 05, 2009 08:29 AM V1-PT DECLINES REF TO [facility]BACCO CESS [facility] [place] [facility] Feb 05, 2009 08:29 AM V1-PT DECLINES TOBACCO CESSATION MEDS [facility] [place] [facility] Feb 05, 2009 08:29 AM V1-PT THINKING ABOUT QUIT TOBACCO USE [facility] [place] [facility] Aug 22, 2008 09:04 AM QUIT TOBACCO USE IN PAST YEAR [place] [facility] [place] [facility] Mar 12, 2008 10:40 AM V1-PT DECLINES REF TO TOBACCO CESS PRGM [facility] [place] [facility] Mar 12, 2008 10:40 AM V1-PT DECLINES TOBACCO CESSATION MEDS [facility] [place] [facility] Mar 12, 2008 10:40 AM V1-PT NOT INTERESTED IN QUIT TOBACCO USE [facility] [place] [facility] Mar 08, 2008 09:37 AM CURRENT SMOKER smokes one pack a day for about 10 years ago. [facility] Encounter Notes: All associated encounter notes This section contains the clinical notes associated to the Encounter. Date/Time Encounter Note(s) Provider Source Oct 14, 2023 09:13 AM ADMINISTRATIVE NOT E: LOCAL TITLE: ADMINISTRATIVE NOTE STANDARD TITLE: ADMINISTRATIVE NOTE DATE OF NOTE: OCT 14, 2023@09:13 ENTRY DATE: OCT 14, 2023@09:13:17 AUTHOR: FABIOLA ARTEAGA EXP COSIGNER: URGENCY: STATUS: COMPLETED POWDERER Summary Evaluation Summary form received from [facility]. PCP filled out/signed form and it was faxed back to [facility] . Sheet Metal Mechanic confirmed receipt of fax. /divya/ Fabiola Arteaga relocation services specialist Staff Nurse Signed: 10/14/2023 09:14 FABIOLA ARTEAGA [facility]
--- OUTSIDE RECORDS SUMMARY | 2024-07-05 03:10 | XMS_ITS ---
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 Address [address] [place] [id number] Care Team Providers Care Cytology Teacher Name Role Phone ROMANA CASTILLO Primary Care [...] Garcia's Name Patient's Relationship to Policy Garcia [facility] (MEDICAID) [facility] May 14, 2009 [id number] SAMPLE,ROCCO MOORE PATIENT [facility] MEDICAID [facility] May 14, 2009 [id number] SAMPLE,ROCCO MOORE PATIENT MEDICAID MEDICAID [facility] Jul 26, 2018 MEDICAI D [id number] SAMPLE,ROCCO MOORE PATIENT MEDICARE (WNR) MEDICARE (M) PART A November 24, 2015 PART A [id number] SAMPLE,ROCCO MOORE PATIENT MEDICARE (WNR) MEDICARE (M) PART B November 24, 2015 PART B [id number] ROCCO QUEZADA PATIENT Selected Encounter This section includes the information on record at [place] for the Encounter. Date/Time Encounter Type Encounter Description Reason Pro vider Source Sep 27, 2023 12:00 PM Outpatient Encounter EVENT (HISTORICAL) IHE Encounter Template Text not used by [place] Plan of Treatment: Future Appointments (+ 6 months) and Future Tests (+/- 45 days) The Plan of Treatment section includes future care activities for the patient from all [place] treatmentfacilities. This section includes future appointments and future orders which are active, pending or scheduled. Future Appointments This section includes appointments that were scheduled to occur 6 months from the date of the Encounter, up to a maximum of 20 appointments. The data comes from all [place] treatment facilities. Appointment Date/Time Appointment Type Appointme nt Facility Name Oct 06, 2023 09:00 AM AMBULATORY - MEDICINE [place] [facility] [place] [facility] Oct 07, 2023 01:00 PM AMBULATORY - PSYCHIATRY [place] [facility] [place] [facility] Oct 25, 2023 11:00 AM AMBULATORY - MEDICINE [place] [facility] [place] [facility] Nov 09, 2023 09:00 AM AMBULATORY - MEDICINE [place] [facility] [place] [facility] Nov 17, 2023 09:30 AM AMBULATORY - MEDICINE [place] [facility] [place] [facility] Jan 03, 2024 11:00 AM AMBULATORY - PSYCHIATRY [place] [facility] [place] [facility] Jan 17, 2024 03:00 PM AMBULATORY - MEDICINE [place] [facility] [place] [facility] Jan 26, 2024 09:30 AM AMBULATORY - MEDICINE [place] [facility] [place] [facility] Feb 03, 2024 03:00 PM AMBULATORY - MEDICINE [place] [facility] [place] [facility] Feb 14, 2024 11:00 AM AMBULATORY - PSYCHIATRY [place] [facility] [place] [facility] Mar 06, 2024 09:00 AM AMBULATORY - MEDICINE [place] [facility] [place] [facility] Social History: Smoking Status [...] 31, 2023 11:00 AM VA-TOBACCO [facility] Tobacco Use History This section includes a history of the smoking, or tobacco-related health factors, that were collected on or before the date of the Encounter. The data comes from the [place] facility where the Encounter took place. Date/Time Smoking Status/Tobac co Use Comment Facility Mar 31, 2023 11:00 AM VA-TOBACCO QUIT 1 TO < 5 YRS [facility] [place] [facility] Mar 25, 2022 10:30 AM VA-TOBACCO NEVER USED [place] [facility] [place] [facility] Mar 19, 2021 02:00 PM VA-TOBACCO FORMER USER [facility] [place] [facility] Mar 19, 2021 02:00 PM VA-TOBACCO QUIT < 1 YEAR [facility] Sep 20, 2018 11:24 AM VA-TOBACCO USE DECLINED TO ANSWER [facility] [place] [facility] Oct 21, 2017 08:13 AM QUIT TOBACCO USE IN PAST YEAR [facility] [place] [facility] Dec 30, 2016 08:28 AM QUIT TOBACCO USE 1-7 YEARS AGO [facility] [place] [facility] Jun 04, 2016 08:43 AM QUIT TOBACCO USE 1-7 YEARS AGO [place] CNT [facility] [place] [facility] May 17, 2015 08:45 AM QUIT TOBACCO USE 1-7 YEARS AGO quit 2 years ago. [facility] [place] [facility] Jun 07, 2014 09:25 AM QUIT TOBACCO USE 1-7 YEARS AGO [place] CNT [facility] [place] [facility] November 30, 2013 08:44 AM QUIT TOBACCO USE IN PAST YEAR [facility] [place] [facility] May 22, 2013 10:10 AM QUIT TOBACCO USE IN PAST YEAR [facility] [place] [facility] December 01, 2012 01:54 PM QUIT TOBACCO USE IN PAST YEAR [facility] [place] [facility] Jun 07, 2012 08:16 AM V1-PT DECLINES TOBACCO CESSATION MEDS [facility] Jun 07, 2012 08:16 AM V1-PT THINKING ABOUT QUIT TOBACCO USE [facility] [place] [facility] Jan 05, 2012 09:00 AM CURRENT SMOKER intermittenly [place] [facility]TR [facility] [place] [facility] Jan 05, 2012 09:00 AM V1-PT DECLINES REF TO TOBACCO CESS PRGM [place] [facility] [place] [facility] Jan 05, 2012 09:00 AM V1-PT DECLINES TOBACCO CESSATION MEDS [place] [facility]TR [facility] [place] [facility] Jan 05, 2012 09:00 AM V1-PT THINKING ABOUT QUIT TOBACCO USE [place] [facility]TR [facility] [place] [facility] Feb 17, 2011 09:52 AM V1-PT DECLINES TOBACCO CESSATION MEDS [facility] [place] [facility] Feb 17, 2011 09:52 AM V1-PT THINKING ABOUT QUIT TOBACCO USE [place] [facility]TR [facility] [place] [facility] Aug 13, 2010 11:31 AM QUIT TOBACCO USE IN PAST YEAR [facility] [place] [facility] Feb 19, 2010 01:26 PM QUIT TOBACCO USE IN PAST YEAR [facility] [place] [facility] Sep 13, 2009 11:04 AM QUIT TOBACCO USE IN PAST YEAR [facility] [place] [facility] Feb 05, 2009 08:29 AM V1-PT DECLINES REF TO TOBACCO CESS PRGM [facility] [place] [facility] Feb 05, 2009 08:29 AM V1-PT DECLINES TOBACCO CESSATION MEDS [facility] [place] [facility] Feb 05, 2009 08:29 AM V1-PT THINKING ABOUT QUIT TOBACCO USE [facility] [place] [facility] Aug 22, 2008 09:04 AM QUIT TOBACCO USE IN PAST YEAR [place] [facility]TR [facility] [place] [facility] Mar 12, 2008 10:40 AM V1-PT DECLINES REF TO TOBACCO CESS PRGM [place] [facility] [facility] Mar 12, 2008 10:40 AM V1-PT DECLINES TOBACCO CESSATION MEDS [place] [facility]TR [facility] [facility] Mar 12, 2008 10:40 AM V1-PT NOT INTERESTED IN QUIT TOBACCO USE [place] [facility]TR [facility] [place] [facility] Mar 08, 2008 09:37 AM CURRENT SMOKER smokes one pack a day for about 10 years ago. [facility] [place] [facility] Encounter Notes: All associated encounter notes This section contains the clinical notes associated to the Encounter. Date/Time Encounter Note(s) Provider Source Sep 27, 2023 12:00 PM NONVA NOTE: LOCAL TITLE: NON-[facility] STANDARD TITLE: NONVA NOTE DATE OF NOTE: SEP 27, 2023@12:00 ENTRY DATE: OCT 08, 2023@13:48:11 AUTHOR: GAVIN ESTRELLA EXP COSIGNER: URGENCY: STATUS: COMPLETED VistA Imaging - Scanned Document SCANNED DOCUMENT SIGNATURE NOT REQUIRED Electronically Filed: 10/08/2023 by: GAVIN WILLIS [facility]
--- OUTSIDE RECORDS SUMMARY | 2024-07-05 03:11 | XMS_ITS | Encounter Summary ---
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 ns Affairs (MD) Organization [facility] of Veter[facility] ([place]) Address [address] [place] [id number] Care Team Providers Care Bus System Operator Name Role Phone ROMANA CASTILLO Primary Care [...] Garcia [facility] (MEDICAID) [facility]ID [facility] [place] May 14, 2009 [id number] SAMPLE,ROCCO MOORE PATIENT [facility] MEDICAID [facility] [place] May 14, 2009 [id number] SAMPLE,ROCCO MOORE PATIENT MEDICAID MEDICAID [facility] [place] Jul 26, 2018 MEDICAI D [id number] SAMPLE,ROCCO MOORE PATIENT MEDICARE (WNR) MEDICARE (M) PART A November 24, 2015 PART A [id number] SAMPLE,ROCCO MOORE PATIENT MEDICARE (WNR) MEDICARE (M) PART B November 24, 2015 PART B [id number] ROCCO QUEZADA PATIENT Selected Encounter This section includes the information on record at MD for the Encounter. Date/Time Encounter Type Encounter Description Reason Pro vider Source Oct 19, 2023 12:00 AM Outpatient Encounter EVENT (HISTORICAL) IHE Encounter Template Text not used by MD Plan of Treatment: Future Appointments (+ 6 months) and Future Tests (+/- 45 days) The Plan of Treatment section includes future care activities for the patient from all MD treatmentfacilities. This section includes future appointments and future orders which are active, pending or scheduled. Future Appointments This section includes appointments that were scheduled to occur 6 months from the date of the Encounter, up to a maximum of 20 appointments. The data comes from all MD treatment facilities. Appointment Date/Time Appointment Type Appointme nt Facility Name Oct 25, 2023 11:00 AM AMBULATORY - MEDICINE [facility] [place] [facility] Nov 09, 2023 09:00 AM AMBULATORY - MEDICINE [facility] [place] [facility] Nov 17, 2023 09:30 AM AMBULATORY - MEDICINE [facility] [place] [facility] Jan 03, 2024 11:00 AM AMBULATORY - PSYCHIATRY [facility] [place] [facility] Jan 17, 2024 03:00 PM AMBULATORY - MEDICINE MD [facility] [place] [facility] Jan 26, 2024 09:30 AM AMBULATORY - MEDICINE MD [facility] [place] [facility] Feb 03, 2024 03:00 PM AMBULATORY - MEDICINE MD [facility] [place] [facility] Feb 14, 2024 11:00 AM AMBULATORY - PSYCHIATRY [facility] [place] [facility] Mar 06, 2024 09:00 AM AMBULATORY - MEDICINE [facility] [place] [facility] Apr 03, 2024 11:30 AM AMBULATORY - MEDICINE MD [facility] [place] [facility] Apr 13, 2024 11:00 AM AMBULATORY - PSYCHIATRY [facility] [place] [facility] Apr 13, 2024 02:00 PM AMBULATORY - MEDICINE [facility] [place] [facility] Apr 13, 2024 03:00 PM AMBULATORY - MEDICINE MD [facility] [place] [facility] Social History: Smoking Status (Most current) and Tobacco Use (All prior to encounter date) This section includes the most current, and the historical, smoking and tobacco- related health factors from the MD facility where the Encounter took place. Current Smoking Status This section includes the most current smoking, or tobacco-related health factor, from the MD facility where the Encounter took place. Date/Time Current Smoking Status Comment Rosana humphrey Mar 31, 2023 11:00 AM VA-TOBACCO FORMER USER [facility] Tobacco Use History This section includes a history of the smoking, or tobacco-related health factors, that were collected on or before the date of the Encounter. The data comes from the MD facility where the Encounter took place. Date/Time Smoking Status/Tobac co Use Comment Facility Mar 31, 2023 11:00 AM VA-TOBACCO QUIT 1 TO < 5 YRS MD [facility] [place] [facility] Mar 25, 2022 10:30 AM VA-TOBACCO NEVER USED MD [facility] [place] [facility] Mar 19, 2021 02:00 PM VA-TOBACCO FORMER USER MD [facility] [place] [facility] Mar 19, 2021 02:00 PM VA-TOBACCO QUIT < 1 YEAR MD [facility] [place] [facility] Sep 20, 2018 11:24 AM VA-TOBACCO USE DECLINED TO ANSWER MD [facility] [place] [facility] Oct 21, 2017 08:13 AM QUIT TOBACCO USE IN PAST YEAR MD [facility] [place] [facility] Dec 30, 2016 08:28 AM QUIT TOBACCO USE 1-7 YEARS AGO MD [facility] [place] [facility] Jun 04, 2016 08:43 AM QUIT TOBACCO USE 1-7 YEARS AGO MD [facility] [place] [facility] May 17, 2015 08:45 AM QUIT TOBACCO USE 1-7 YEARS AGO quit 2 years ago. MD [facility] [place] [facility] Jun 07, 2014 09:25 AM QUIT TOBACCO USE 1-7 YEARS AGO MD [facility] [place] [facility] November 30, 2013 08:44 AM QUIT TOBACCO USE IN PAST YEAR MD [facility] [place] [facility] May 22, 2013 10:10 AM QUIT TOBACCO USE IN PAST YEAR MD [facility] [place] [facility] December 01, 2012 01:54 PM QUIT TOBACCO USE IN PAST YEAR MD [facility] [place] [facility] Jun 07, 2012 08:16 AM V1-PT DECLINES TOBACCO CESSATION MEDS [facility] [place] [facility] Jun 07, 2012 08:16 AM V1-PT THINKING ABOUT QUIT TOBACCO USE [facility] [place] [facility] Jan 05, 2012 09:00 AM CURRENT SMOKER intermittenly [facility] [place] [facility] Jan 05, 2012 09:00 AM V1-PT DECLINES REF TO TOBACCO CESS PRGM [facility] [place] [facility] Jan 05, 2012 09:00 AM V1-PT DECLINES TOBACCO CESSATION MEDS [facility] [place] [facility] Jan 05, 2012 09:00 AM V1-PT THINKING ABOUT QUIT TOBACCO USE [facility] [place] [facility] Feb 17, 2011 09:52 AM V1-PT DECLINES TOBACCO CESSATION MEDS [facility] [place] [facility] Feb 17, 2011 09:52 AM V1-PT THINKING ABOUT QUIT TOBACCO USE [facility] [place] [facility] Aug 13, 2010 11:31 AM QUIT TOBACCO USE IN PAST YEAR [facility] [place] [facility] Feb 19, 2010 01:26 PM QUIT TOBACCO USE IN PAST YEAR MD [facility] [place] [facility] Sep 13, 2009 11:04 AM QUIT TOBACCO USE IN PAST YEAR MD [facility] [place] [facility] Feb 05, 2009 08:29 AM V1-PT DECLINES RE[facility]ACCO [facility]ESS [facility] [place] [facility] Feb 05, 2009 08:29 AM V1-PT DECLINES TOBACCO CESSATION MEDS [facility] [place] [facility] Feb 05, 2009 08:29 AM V1-PT THINKING ABOUT QUIT TOBACCO USE [facility] [place] [facility] Aug 22, 2008 09:04 AM QUIT TOBACCO USE IN PAST YEAR MD [facility] [place] [facility] Mar 12, 2008 10:40 AM V1-PT DECLINES REF TO TOBACCO CESS PRGM [facility] [place] [facility] Mar 12, 2008 10:40 AM V1-PT DECLINES TOBACCO CESSATION MEDS [facility] [place] [facility] Mar 12, 2008 10:40 AM V1-PT NOT INTERESTED IN QUIT TOBACCO USE [facility] [place] [facility] Mar 08, 2008 09:37 AM CURRENT SMOKER smokes one pack a day for about 10 years ago. [facility] Encounter Notes: All associated encounter notes This section contains the clinical notes associated to the Encounter. Date/Time Encounter Note(s) Provider Source Oct 19, 2023 12:00 AM NONVA NOTE: LOCAL TITLE: NON-VA OUTPATIENT NOTES STANDARD TITLE: NONVA NOTE DATE OF NOTE: OCT 19, 2023 ENTRY DATE: OCT 26, 2023@15:27:19 AUTHOR: DAYAN PAULINO EXP COSIGNER: URGENCY: STATUS: COMPLETED VistA Imaging - Scanned Document SCANNED DOCUMENT SIGNATURE NOT REQUIRED Electronically Filed: 10/26/2023 by: DAYAN PAULINO MOTOR HOTEL MANAGER DAYAN PAULINO [facility]
--- OUTSIDE RECORDS SUMMARY | 2024-07-05 03:11 | XMS_ITS | Encounter Summary ---
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 MEDICAID [facility] May 14, 2009 [id number] SAMPLE,ROCCO MOORE PATIENT MEDICAID MEDICAID [facility] [place] Jul 26, 2018 MEDICAI D [id number] SAMPLE,ROCCO MOORE PATIENT MEDICARE (WNR) MEDICARE (M) PART A November 24, 2015 PART A [id number] [id number] SAMPLE,ROCCO MOORE PATIENT MEDICARE (WNR) MEDICARE (M) PART B November 24, 2015 PART B [id number] [id number] ROCCO QUEZADA PATIENT Selected Encounter This section includes the information on record at ND for the Encounter. Date/Time Encounter Type Encounter Description Reason Pro vider Source Nov 08, 2023 10:43 AM Outpatient Encounter PAIN CLINIC IHE Encounter Template Text not used by ND Plan of Treatment: Future Appointments (+ 6 months) and Future Tests (+/- 45 days) The Plan of Treatment section includes future care activities for the patient from all [place] treatmentfacilities. This section includes future appointments and future orders which are active, pending or scheduled. Future Appointments This section includes appointments that were scheduled to occur 6 months from the date of the Encounter, up to a maximum of 20 appointments. The data comes from all [place] treatment facilities. Appointment Date/Time Appointment Type Appointme nt Facility Name Nov 09, 2023 09:00 AM AMBULATORY - MEDICINE [facility] [place] [facility] Nov 17, 2023 09:30 AM AMBULATORY - MEDICINE [facility] [place] [facility] Jan 03, 2024 11:00 AM AMBULATORY - PSYCHIATRY [facility] [place] [facility] Jan 17, 2024 03:00 PM AMBULATORY - MEDICINE [facility] [place] [facility] Jan 26, 2024 09:30 AM AMBULATORY - MEDICINE [facility] [place] [facility] Feb 03, 2024 03:00 PM AMBULATORY - MEDICINE [facility] [place] [facility] Feb 14, 2024 11:00 AM AMBULATORY - PSYCHIATRY [facility] [place] [facility] Mar 06, 2024 09:00 AM AMBULATORY - MEDICINE [facility] [place] [facility] Apr 03, 2024 11:30 AM AMBULATORY - MEDICINE [facility] [place] [facility] Apr 13, 2024 11:00 AM AMBULATORY - PSYCHIATRY [facility] [place] [facility] Apr 13, 2024 02:00 PM AMBULATORY - MEDICINE [facility] [place] [facility] Apr 13, 2024 03:00 PM AMBULATORY - MEDICINE [facility] [place] [facility] May 02, 2024 11:00 AM AMBULATORY - MEDICINE ND [facility] [place] [facility] Social History: Smoking Status (Most current) and Tobacco Use (All prior to encounter date) This section includes the most current, and the historical, smoking and tobacco- related health factors from the ND facility where the Encounter took place. Current Smoking Status This section includes the most current smoking, or tobacco-related health factor, from the [place] facility where the Encounter took place. Date/Time Current Smoking Status Comment Rosana humphrey Mar 31, 2023 11:00 AM VA-TOBACCO QUIT 1 TO < 5 YRS [facility] Tobacco Use History This section includes a history of the smoking, or tobacco-related health factors, that were collected on or before the date of the Encounter. The data comes from the ND facility where the Encounter took place. Date/Time Smoking Status/Tobac co Use Comment Facility Mar 31, 2023 11:00 AM VA-TOBACCO QUIT 1 TO < 5 YRS ND [facility] [place] [facility] Mar 25, 2022 10:30 AM VA-TOBACCO NEVER USED ND [facility] [place] [facility] Mar 19, 2021 02:00 PM VA-TOBACCO FORMER USER ND [facility] [place] [facility] Mar 19, 2021 02:00 PM VA-TOBACCO QUIT < 1 YEAR ND [facility] [place] [facility] Sep 20, 2018 11:24 AM VA-TOBACCO USE DECLINED TO ANSWER ND [facility] [place] [facility] Oct 21, 2017 08:13 AM QUIT TOBACCO USE IN PAST YEAR ND [facility] [place] [facility] Dec 30, 2016 08:28 AM QUIT TOBACCO USE 1-7 YEARS AGO ND [facility] [place] [facility] Jun 04, 2016 08:43 AM QUIT TOBACCO USE 1-7 YEARS AGO ND [facility] [place] [facility] May 17, 2015 08:45 AM QUIT TOBACCO USE 1-7 YEARS AGO quit 2 years ago. [place] [facility] [place] [facility] Jun 07, 2014 09:25 AM QUIT TOBACCO USE 1-7 YEARS AGO ND [facility] [place] [facility] November 30, 2013 08:44 AM QUIT TOBACCO USE IN PAST YEAR ND [facility] [place] [facility] May 22, 2013 10:10 AM QUIT TOBACCO USE IN PAST YEAR ND [facility] [place] [facility] December 01, 2012 01:54 PM QUIT TOBACCO USE IN PAST YEAR ND [facility] [place] [facility] Jun 07, 2012 08:16 AM V1-PT DECLINES TOBACCO CESSATION MEDS [facility] [place] [facility] Jun 07, 2012 08:16 AM V1-PT THINKING ABOUT QUIT TOBACCO USE [facility] [place] [facility] Jan 05, 2012 09:00 AM CURRENT SMOKER intermittenly [facility] [place] [facility] Jan 05, 2012 09:00 AM V1-PT DECLINES REF TO TOBACCO CESS PRGM [facility] [place] [facility] Jan 05, 2012 09:00 AM V1-PT DECLINES TOBACCO CESSATION MEDS [facility] [place] [facility] Jan 05, 2012 09:00 AM V1-PT THINKING ABOUT QUIT TOBACCO USE [facility] [place] [facility] Feb 17, 2011 09:52 AM V1-PT DECLINES TOBACCO CESSATION MEDS [facility] [place] [facility] Feb 17, 2011 09:52 AM V1-PT THINKING ABOUT QUIT TOBACCO USE [facility] [place] [facility] Aug 13, 2010 11:31 AM QUIT TOBACCO USE IN PAST YEAR [facility] [place] [facility] Feb 19, 2010 01:26 PM QUIT TOBACCO USE IN PAST YEAR ND [facility] [place] [facility] Sep 13, 2009 11:04 AM QUIT TOBACCO USE IN PAST YEAR ND [facility] [place] [facility] Feb 05, 2009 08:29 AM V1-PT DECLINES REF [facility]ACCO [facility]ESS [facility] [place] [facility] Feb 05, 2009 08:29 AM V1-PT DECLINES TOBACCO CESSATION MEDS [facility] [place] [facility] Feb 05, 2009 08:29 AM V1-PT THINKING ABOUT QUIT TOBACCO USE [facility] [place] [facility] Aug 22, 2008 09:04 AM QUIT TOBACCO USE IN PAST YEAR ND [facility] [place] [facility] Mar 12, 2008 10:40 AM V1-PT DECLINES REF TO TOBACCO CESS PRGM [facility] [place] [facility] Mar 12, 2008 10:40 AM V1-PT DECLINES TOBACCO CESSATION MEDS [facility] [place] [facility] Mar 12, 2008 10:40 AM V1-PT NOT INTERESTED IN QUIT TOBACCO USE [facility] [place] [facility] Mar 08, 2008 09:37 AM CURRENT SMOKER smokes one pack a day for about 10 years ago. [facility] Encounter Notes: All associated encounter notes This section contains the clinical notes associated to the Encounter. Date/Time Encounter Note(s) Provider Source Nov 08, 2023 10:43 AM TELEPHONE ENCOUNTE R NOTE: LOCAL TITLE: TELEPHONE NOTE/SPECIALTY CLINIC STANDARD TITLE: TELEPHONE ENCOUNTER NOTE DATE OF NOTE: NOV 08, 2023@10:43 ENTRY DATE: NOV 08, 2023@10:43:13 AUTHOR: BEULAH LOPEZ EXP COSIGNER: URGENCY: STATUS: COMPLETED Called and spoke with pt to remind them that they have a VVC appt with the Pain clinic on 11/09/2023 at 9am. 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
--- OUTSIDE RECORDS SUMMARY | 2024-07-05 03:11 | XMS_ITS ---
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 Organization [place] Address [address] [place] [id number] Care Team Providers Care Chute Tapper Name Role Phone ROMANA CASTILLO Primary Care [...] Garcia's Name Patient's Relationship to Policy Garcia [facility] (MEDICAID) [facility]ID [facility] May 14, 2009 [id number] SAMPLE,ROCCO MOORE PATIENT [facility] MEDICAID [facility] May 14, 2009 [id number] SAMPLE,ROCCO MOORE PATIENT MEDICAID MEDICAID [facility] Jul 26, 2018 MEDICAI D [id number] SAMPLE,ROCCO MOORE PATIENT MEDICARE (WNR) MEDICARE (M) PART A November 24, 2015 PART A [id number] [phone] SAMPLE,ROCCO MOORE PATIENT MEDICARE (WNR) MEDICARE (M) PART B November 24, 2015 PART B [id number] ROCCO QUEZADA PATIENT Selected Encounter This section includes the information on record at [place] for the Encounter. Date/Time Encounter Type Encounter Description Reason Pro vider Source Nov 04, 2023 10:15 AM Outpatient Encounter PAIN CLINIC IHE Encounter Template Text not used by [place] Plan of Treatment: Future Appointments (+ 6 months) and Future Tests (+/- 45 days) The Plan of Treatment section includes future care activities for the patient from all [place] treatmentfacilities. This section includes future appointments and future orders which are active, pending or scheduled. Future Appointments This section includes appointments that were scheduled to occur 6 months from the date of the Encounter, up to a maximum of 20 appointments. The data comes from all [place] treatment facilities. Appointment Date/Time Appointment Type Appointme nt Facility Name Nov 09, 2023 09:00 AM AMBULATORY - MEDICINE [facility] [place] [facility] Nov 17, 2023 09:30 AM AMBULATORY - MEDICINE [facility] [place] [facility] Jan 03, 2024 11:00 AM AMBULATORY - PSYCHIATRY [facility] [place] [facility] Jan 17, 2024 03:00 PM AMBULATORY - MEDICINE [facility] [place] [facility] Jan 26, 2024 09:30 AM AMBULATORY - MEDICINE [facility] [place] [facility] Feb 03, 2024 03:00 PM AMBULATORY - MEDICINE [facility] [place] [facility] Feb 14, 2024 11:00 AM AMBULATORY - PSYCHIATRY [facility] [place] [facility] Mar 06, 2024 09:00 AM AMBULATORY - MEDICINE [facility] [place] [facility] Apr 03, 2024 11:30 AM AMBULATORY - MEDICINE [facility] [place] [facility] Apr 13, 2024 11:00 AM AMBULATORY - PSYCHIATRY [facility] [place] [facility] Apr 13, 2024 02:00 PM AMBULATORY - MEDICINE [facility] [place] [facility] Apr 13, 2024 03:00 PM AMBULATORY - MEDICINE [facility] [place] [facility] May 02, 2024 11:00 AM AMBULATORY - MEDICINE [place] [facility] [place] [facility] Social History: Smoking Status (Most current) and Tobacco Use (All prior to encounter date) This section includes the most current, and the historical, smoking and tobacco- related health factors from the [place] facility where the Encounter took place. Current Smoking Status This section includes the most current smoking, or tobacco-related health factor, from the [place] facility where the Encounter took place. Date/Time Current Smoking Status Comment Rosana christian Mar 31, 2023 11:00 AM VA-TOBACCO FORMER USER [facility] Tobacco Use History This section includes a history of the smoking, or tobacco-related health factors, that were collected on or before the date of the Encounter. The data comes from the [place] facility where the Encounter took place. Date/Time Smoking Status/Tobac co Use Comment Facility Mar 31, 2023 11:00 AM VA-TOBACCO QUIT 1 TO < 5 YRS [facility] [place] [facility] Mar 25, 2022 10:30 AM VA-TOBACCO NEVER USED [place] [facility] [place] [facility] Mar 19, 2021 02:00 PM VA-TOBACCO FORMER USER [place] [facility] [place] [facility] Mar 19, 2021 02:00 PM VA-TOBACCO QUIT < 1 YEAR [facility] [place] [facility] Sep 20, 2018 11:24 AM VA-TOBACCO USE DECLINED TO ANSWER [facility] [place] [facility] Oct 21, 2017 08:13 AM QUIT TOBACCO USE IN PAST YEAR [facility] [place] [facility] Dec 30, 2016 08:28 AM QUIT TOBACCO USE 1-7 YEARS AGO [facility] [place] [facility] Jun 04, 2016 08:43 AM QUIT TOBACCO USE 1-7 YEARS AGO [facility] [place] [facility] May 17, 2015 08:45 AM QUIT TOBACCO USE 1-7 YEARS AGO quit 2 years ago. [place] [facility] [place] [facility] Jun 07, 2014 09:25 AM QUIT TOBACCO USE 1-7 YEARS AGO [facility] [place] [facility] November 30, 2013 08:44 AM QUIT TOBACCO USE IN PAST YEAR [facility] [place] [facility] May 22, 2013 10:10 AM QUIT TOBACCO USE IN PAST YEAR [facility] [place] [facility] December 01, 2012 01:54 PM QUIT TOBACCO USE IN PAST YEAR [facility] [place] [facility] Jun 07, 2012 08:16 AM V1-PT DECLINES TOBACCO CESSATION MEDS [facility] [place] [facility] Jun 07, 2012 08:16 AM V1-PT THINKING ABOUT QUIT TOBACCO USE [facility] [place] [facility] Jan 05, 2012 09:00 AM CURRENT SMOKER intermittenly [facility] [place] [facility] Jan 05, 2012 09:00 AM V1-PT DECLINES REF TO TOBACCO CESS PRGM [facility] [place] [facility] Jan 05, 2012 09:00 AM V1-PT DECLINES TOBACCO CESSATION MEDS [facility] [place] [facility] Jan 05, 2012 09:00 AM V1-PT THINKING ABOUT QUIT TOBACCO USE [facility] [place] [facility] Feb 17, 2011 09:52 AM V1-PT DECLINES TOBACCO CESSATION MEDS [facility] [place] [facility] Feb 17, 2011 09:52 AM V1-PT THINKING ABOUT QUIT TOBACCO USE [facility] [place] [facility] Aug 13, 2010 11:31 AM QUIT TOBACCO USE IN PAST YEAR [facility] [place] [facility] Feb 19, 2010 01:26 PM QUIT TOBACCO USE IN PAST YEAR [place] [facility] [place] [facility] Sep 13, 2009 11:04 AM QUIT TOBACCO USE IN PAST YEAR [facility] [place] [facility] Feb 05, 2009 08:29 AM V1-PT DECLINES REF TO TOBACCO CESS [facility] [place] [facility] Feb 05, 2009 08:29 AM V1-PT DECLINES TOBACCO CESSATION MEDS [facility] [place] [facility] Feb 05, 2009 08:29 AM V1-PT THINKING ABOUT QUIT TOBACCO USE [facility] [place] [facility] Aug 22, 2008 09:04 AM QUIT TOBACCO USE IN PAST YEAR [place] [facility] [place] [facility] Mar 12, 2008 10:40 AM V1-PT DECLINES REF TO TOBACCO CESS PRGM [facility] [place] [facility] Mar 12, 2008 10:40 AM V1-PT DECLINES TOBACCO CESSATION MEDS [facility] [place] [facility] Mar 12, 2008 10:40 AM V1-PT NOT INTERESTED IN QUIT TOBACCO USE [facility] [place] [facility] Mar 08, 2008 09:37 AM CURRENT SMOKER smokes one pack a day for about 10 years ago. [facility] Encounter Notes: All associated encounter notes This section contains the clinical notes associated to the Encounter. Date/Time Encounter Note(s) Provider Source Nov 04, 2023 10:15 AM TELEPHONE ENCOUNTE R NOTE: LOCAL TITLE: TELEPHONE NOTE/SPECIALTY CLINIC STANDARD TITLE: TELEPHONE ENCOUNTER NOTE DATE OF NOTE: NOV 04, 2023@10:15 ENTRY DATE: NOV 04, 2023@10:15:53 AUTHOR: BEULAH LOPEZ EXP COSIGNER: URGENCY: STATUS: COMPLETED TELEPHONE NOTE/SPECIALTY CLINIC Has ADDENDA [place] called asking for refill on Oxycodone. She is going to run out on Wednesday11/06/2023. She has [facility] appt scheduled 11/09/[address] Solorio. She is asking for refill at least to hold her over until 11/08 if possible. Please advise /divya/ BEULAH LOPEZ [employer] GUIDE Signed: 11/04/2023 10:17 Receipt Acknowledged By: 11/04/2023 11:01 /divya/ Gal Solorio MD STAFF PHYSICIAN 11/04/2023 11:42 /es/ URBANO FOSTER, PHARM.D CLINICAL PHARMACIST PRACTITIONER 11/04/2023 ADDENDUM STATUS: COMPLETED medication ordered at slightly decreased dose. can be picked up on 11/04. /divya/ Gal Solorio MD STAFF PHYSICIAN Signed: 11/04/2023 11:05 11/04/2023 ADDENDUM STATUS: COMPLETED [employer] Faculty Member called vet to notify her that med refilled at lower dose and can be picked up 11/05/2023 /isabella LOPEZ [employer] CHIEF [employer]PORT GUIDE Signed: 11/04/2023 11:25 BEULAH LOPEZ [facility]
--- OUTSIDE RECORDS SUMMARY | 2024-07-05 03:11 | XMS_ITS ---
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 [facility] [place] Organization [place] Address [address] [place] [id number] Care Team Providers Care Short Piece Handler Name Role Phone ROMANA CASTILLO Primary Care [...] Garcia's Name Patient's Relationship to Policy Garcia [facility] (MEDICAID) [facility] May 14, 2009 [id number] SAMPLE,ROCCO MOORE PATIENT [facility] MEDICAID [facility] May 14, 2009 [id number] SAMPLE,ROCCO MOORE PATIENT MEDICAID MEDICAID [facility] [place] Jul 26, 2018 MEDICAI D [id number] SAMPLE,ROCCO MOORE PATIENT MEDICARE (WNR) MEDICARE (M) PART A November 24, 2015 PART A [id number] SAMPLE,ROCCO MOORE PATIENT MEDICARE (WNR) MEDICARE (M) PART B November 24, 2015 PART B [id number] ROCCO QUEZADA PATIENT Selected Encounter This section includes the information on record at [place] for the Encounter. Date/Time Encounter Type Encounter Description Reason Pro vider Source Oct 20, 2023 12:00 AM Outpatient Encounter EVENT (HISTORICAL) IHE Encounter Template Text not used by [place] Plan of Treatment: Future Appointments (+ 6 months) and Future Tests (+/- 45 days) The Plan of Treatment section includes future care activities for the patient from all [place] treatmentfacilities. This section includes future appointments and future orders which are active, pending or scheduled. Future Appointments This section includes appointments that were scheduled to occur 6 months from the date of the Encounter, up to a maximum of 20 appointments. The data comes from all [place] treatment facilities. Appointment Date/Time Appointment Type Appointme nt Facility Name Oct 25, 2023 11:00 AM AMBULATORY - MEDICINE [place] [facility] [place] [facility] Nov 09, 2023 09:00 AM AMBULATORY - MEDICINE [facility] [place] [facility] Nov 17, 2023 09:30 AM AMBULATORY - MEDICINE [facility] [facility] Jan 03, 2024 11:00 AM AMBULATORY - PSYCHIATRY [facility] [place] [facility] Jan 17, 2024 03:00 PM AMBULATORY - MEDICINE [facility] [facility] Jan 26, 2024 09:30 AM AMBULATORY - MEDICINE [facility] [place] [facility] Feb 03, 2024 03:00 PM AMBULATORY - MEDICINE [facility] [facility] Feb 14, 2024 11:00 AM AMBULATORY - PSYCHIATRY [facility] [place] [facility] Mar 06, 2024 09:00 AM AMBULATORY - MEDICINE [facility] [facility] Apr 03, 2024 11:30 AM AMBULATORY - MEDICINE [facility] [place] [facility] Apr 13, 2024 11:00 AM AMBULATORY - PSYCHIATRY [facility] [place] [facility] Apr 13, 2024 02:00 PM AMBULATORY - MEDICINE [facility] [place] [facility] Apr 13, 2024 03:00 PM AMBULATORY - MEDICINE [place] [facility] [facility] Social History: Smoking Status (Most current) and Tobacco Use (All prior to encounter date) This section includes the most current, and the historical, smoking and tobacco- related health factors from the [place] facility where the Encounter took place. Current Smoking Status This section includes the most current smoking, or tobacco-related health factor, from the [place] facility where the Encounter took place. Date/Time Current Smoking Status Comment Rosana humphrey Mar 31, 2023 11:00 AM VA-TOBACCO FORMER USER [facility] Tobacco Use History This section includes a history of the smoking, or tobacco-related health factors, that were collected on or before the date of the Encounter. The data comes from the [place] facility where the Encounter took place. Date/Time Smoking Status/Tobac co Use Comment Facility Mar 31, 2023 11:00 AM VA-TOBACCO QUIT 1 TO < 5 YRS [facility] [place] [facility] Mar 25, 2022 10:30 AM VA-TOBACCO NEVER USED [facility] [place] [facility] Mar 19, 2021 02:00 PM VA-TOBACCO FORMER USER [facility] [place] [facility] Mar 19, 2021 02:00 PM VA-TOBACCO QUIT < 1 YEAR [facility] [place] [facility] Sep 20, 2018 11:24 AM VA-TOBACCO USE DECLINED TO ANSWER [facility] [place] [facility] Oct 21, 2017 08:13 AM QUIT TOBACCO USE IN PAST YEAR [facility] [place] [facility] Dec 30, 2016 08:28 AM QUIT TOBACCO USE 1-7 YEARS AGO [facility] [place] [facility] Jun 04, 2016 08:43 AM QUIT TOBACCO USE 1-7 YEARS AGO [facility] [place] [facility] May 17, 2015 08:45 AM QUIT TOBACCO USE 1-7 YEARS AGO quit 2 years ago. [facility] [place] [facility] Jun 07, 2014 09:25 AM QUIT TOBACCO USE 1-7 YEARS AGO [facility] [place] [facility] November 30, 2013 08:44 AM QUIT TOBACCO USE IN PAST YEAR [facility] [facility] May 22, 2013 10:10 AM QUIT TOBACCO USE IN PAST YEAR [facility] [facility] December 01, 2012 01:54 PM QUIT TOBACCO USE IN PAST YEAR [facility] [place] [facility] Jun 07, 2012 08:16 AM V1-PT DECLINES TOBACCO CESSATION MEDS [facility] [place] [facility] Jun 07, 2012 08:16 AM V1-PT THINKING ABOUT QUIT TOBACCO USE [facility] [place] [facility] Jan 05, 2012 09:00 AM CURRENT SMOKER intermittenly [facility] [place] [facility] Jan 05, 2012 09:00 AM V1-PT DECLINES REF TO TOBACCO CESS PRGM [facility] [place] [facility] Jan 05, 2012 09:00 AM V1-PT DECLINES TOBACCO CESSATION MEDS [facility] [place] [facility] Jan 05, 2012 09:00 AM V1-PT THINKING ABOUT QUIT TOBACCO USE [facility] [place] [facility] Feb 17, 2011 09:52 AM V1-PT DECLINES TOBACCO CESSATION MEDS [facility] [place] [facility] Feb 17, 2011 09:52 AM V1-PT THINKING ABOUT QUIT TOBACCO USE [facility] [place] [facility] Aug 13, 2010 11:31 AM QUIT TOBACCO USE IN PAST YEAR [facility] [place] [facility] Feb 19, 2010 01:26 PM QUIT TOBACCO USE IN PAST YEAR [facility] [place] [facility] Sep 13, 2009 11:04 AM QUIT TOBACCO USE IN PAST YEAR [facility] [place] [facility] Feb 05, 2009 08:29 AM V1-PT DECLINES REF TO TOBACCO CESS [facility] [place] [facility] Feb 05, 2009 08:29 AM V1-PT DECLINES TOBACCO CESSATION MEDS [facility] [place] [facility] Feb 05, 2009 08:29 AM V1-PT THINKING ABOUT QUIT TOBACCO USE [facility] [place] [facility] Aug 22, 2008 09:04 AM QUIT TOBACCO USE IN PAST YEAR [facility] [place] [facility] Mar 12, 2008 10:40 AM V1-PT DECLINES REF TO TOBACCO CESS PRGM [facility] [place] [facility] Mar 12, 2008 10:40 AM V1-PT DECLINES TOBACCO CESSATION MEDS [facility] [place] [facility] Mar 12, 2008 10:40 AM V1-PT NOT INTERESTED IN QUIT TOBACCO USE [facility] [place] [facility] Mar 08, 2008 09:37 AM CURRENT SMOKER smokes one pack a day for about 10 years ago. [facility] Encounter Notes: All associated encounter notes This section contains the clinical notes associated to the Encounter. Date/Time Encounter Note(s) Provider Source Oct 20, 2023 12:00 AM NONVA NOTE: LOCAL TITLE: NON-[facility] STANDARD TITLE: NONVA NOTE DATE OF NOTE: OCT 20, 2023 ENTRY DATE: OCT 26, 2023@14:45:03 AUTHOR: ANGELA CERRATO EXP COSIGNER: URGENCY: STATUS: COMPLETED VistA Imaging - Scanned Document SCANNED DOCUMENT SIGNATURE NOT REQUIRED Electronically Filed: 10/26/2023 by: ANGELA CERRATO VACUUM CLEANER REPAIRER ANGELA CERRATO [facility]
--- OUTSIDE RECORDS SUMMARY | 2024-07-05 03:11 | XMS_ITS | Encounter Summary ---
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 [place] Organization [facility] [place] Address [address] [place] [id number] Care Team Providers Care Sports Activities Foul Judge Name Role Phone ROMANA CASTILLO Primary Care [...] Garcia's Name Patient's Relationship to Policy Garcia [facility] (MEDICAID) [facility] May 14, 2009 [id number] SAMPLE,ROCCO MOORE PATIENT [facility] MEDICAID [facility] May 14, 2009 [id number] SAMPLE,ROCCO MOORE PATIENT MEDICAID MEDICAID [facility] [place] Jul 26, 2018 MEDICAI D [id number] SAMPLE,ROCCO MOORE PATIENT MEDICARE (WNR) MEDICARE (M) PART A November 24, 2015 PART A [id number] SAMPLE,ROCCO MOORE PATIENT MEDICARE (WNR) MEDICARE (M) PART B November 24, 2015 PART B [id number] [id number] ROCCO QUEZADA PATIENT Selected Encounter This section includes the information on record at [place] for the Encounter. Date/Time Encounter Type Encounter Description Reason Pro vider Source Oct 25, 2023 03:27 PM Outpatient Encounter ENDOCRINOLOGY IHE Encounter Template Text not used by [place] Plan of Treatment: Future Appointments (+ 6 months) and Future Tests (+/- 45 days) The Plan of Treatment section includes future care activities for the patient from all [place] treatmentfacilities. This section includes future appointments and future orders which are active, pending or scheduled. Future Appointments This section includes appointments that were scheduled to occur 6 months from the date of the Encounter, up to a maximum of 20 appointments. The data comes from all [place] treatment facilities. Appointment Date/Time Appointment Type Appointme nt Facility Name Nov 09, 2023 09:00 AM AMBULATORY - MEDICINE [place] [facility] [place] [facility] Nov 17, 2023 09:30 AM AMBULATORY - MEDICINE [place] [facility] [place] [facility] Jan 03, 2024 11:00 AM AMBULATORY - PSYCHIATRY [facility] [place] [facility] Jan 17, 2024 03:00 PM AMBULATORY - MEDICINE [place] [facility] [place] [facility] Jan 26, 2024 09:30 AM AMBULATORY - MEDICINE [place] [facility] [place] [facility] Feb 03, 2024 03:00 PM AMBULATORY - MEDICINE [place] [facility] [place] [facility] Feb 14, 2024 11:00 AM AMBULATORY - PSYCHIATRY [facility] [place] [facility] Mar 06, 2024 09:00 AM AMBULATORY - MEDICINE [place] [facility] [place] [facility] Apr 03, 2024 11:30 AM AMBULATORY - MEDICINE [place] [facility] [place] [facility] Apr 13, 2024 11:00 AM AMBULATORY - PSYCHIATRY [facility] [place] [facility] Apr 13, 2024 02:00 PM AMBULATORY - MEDICINE [place] [facility] [place] [facility] Apr 13, 2024 03:00 PM AMBULATORY - MEDICINE [place] [facility] [place] [facility] Social History: Smoking Status (Most current) and Tobacco Use (All prior to encounter date) This section includes the most current, and the historical, smoking and tobacco- related health factors from the [place] facility where the Encounter took place. Current Smoking Status This section includes the most current smoking, or tobacco-related health factor, from the [place] facility where the Encounter took place. Date/Time Current Smoking Status Comment [facility] Mar 31, 2023 11:00 AM VA-TOBACCO QUIT 1 TO < 5 YRS [facility] Tobacco Use History This section includes a history of the smoking, or tobacco-related health factors, that were collected on or before the date of the Encounter. The data comes from the [place] facility where the Encounter took place. Date/Time Smoking Status/Tobac co Use Comment Facility Mar 31, 2023 11:00 AM VA-TOBACCO QUIT 1 TO < 5 YRS [facility] [place] [facility] Mar 25, 2022 10:30 AM VA-TOBACCO NEVER USED [facility] [place] [facility] Mar 19, 2021 02:00 PM VA-TOBACCO FORMER USER [facility] [place] [facility] Mar 19, 2021 02:00 PM VA-TOBACCO QUIT < [facility] [place] [facility] Sep 20, 2018 11:24 AM VA-TOBACCO USE DECLINED TO ANSWER [facility] [place] [facility] Oct 21, 2017 08:13 AM QUIT TOBACCO USE IN PAST YEAR [facility] [place] [facility] Dec 30, 2016 08:28 AM QUIT TOBACCO USE 1-7 YEARS AGO [facility] [place] [facility] Jun 04, 2016 08:43 AM QUIT TOBACCO USE 1-7 YEARS AGO [facility] [place] [facility] May 17, 2015 08:45 AM QUIT TOBACCO USE 1-7 YEARS AGO quit 2 years ago. [facility] [place] [facility] Jun 07, 2014 09:25 AM QUIT TOBACCO USE 1-7 YEARS AGO [facility] [place] [facility] November 30, 2013 08:44 AM QUIT TOBACCO USE IN PAST YEAR [facility] [place] [facility] May 22, 2013 10:10 AM QUIT TOBACCO USE IN PAST YEAR [facility] [place] [facility] December 01, 2012 01:54 PM QUIT TOBACCO USE IN PAST YEAR [facility] [place] [facility] Jun 07, 2012 08:16 AM V1-PT DECLINES TOBACCO CESSATION MEDS [facility] [place] [facility] Jun 07, 2012 08:16 AM V1-PT THINKING ABOUT QUIT TOBACCO USE [facility] [place] [facility] Jan 05, 2012 09:00 AM CURRENT SMOKER intermittenly [facility] [place] [facility] Jan 05, 2012 09:00 AM V1-PT DECLINES REF TO TOBACCO CESS PRGM [facility] [place] [facility] Jan 05, 2012 09:00 AM V1-PT DECLINES TOBACCO CESSATION [facility] [place] [facility] Jan 05, 2012 09:00 AM V1-PT THINKING ABOUT QUIT TOBACCO USE [facility] [place] [facility] Feb 17, 2011 09:52 AM V1-PT DECLINES TOBACCO CESSATION MEDS [facility] [place] [facility] Feb 17, 2011 09:52 AM V1-PT THINKING ABOUT QUIT TOBACCO USE [facility] [place] [facility] Aug 13, 2010 11:31 AM QUIT TOBACCO USE IN PAST YEAR [facility] [place] [facility] Feb 19, 2010 01:26 PM QUIT TOBACCO USE IN PAST YEAR [facility] [place] [facility] Sep 13, 2009 11:04 AM QUIT TOBACCO USE IN PAST YEAR [facility] [place] [facility] Feb 05, 2009 08:29 AM V1-PT DECLINES REF TO TOBACCO CESS PRGM [facility] [place] [facility] Feb 05, 2009 08:29 AM V1-PT DECLINES TOBACCO CESSATION MEDS [facility] [place] [facility] Feb 05, 2009 08:29 AM V1-PT THINKING ABOUT QUIT TOBACCO USE [facility] [place] [facility] Aug 22, 2008 09:04 AM QUIT TOBACCO USE IN PAST YEAR [facility] [place] [facility] Mar 12, 2008 10:40 AM V1-PT DECLINES REF TO TOBACCO CESS PRGM [facility] [place] [facility] Mar 12, 2008 10:40 AM V1-PT DECLINES TOBACCO CESSATION MEDS [facility] [place] [facility] Mar 12, 2008 10:40 AM V1-PT NOT INTERESTED IN QUIT TOBACCO USE [facility] [place] [facility] Mar 08, 2008 09:37 AM CURRENT SMOKER smokes one pack a day for about 10 years ago. [facility] Encounter Notes: All associated encounter notes This section contains the clinical notes associated to the Encounter. Date/Time Encounter Note(s) Provider Source Oct 25, 2023 03:27 PM CLERICAL NOTE: LOCAL TITLE: APPOINTMENT NO SHOW STANDARD TITLE: CLERICAL NOTE DATE OF NOTE: OCT 25, 2023@15:27 ENTRY DATE: OCT 25, 2023@15:27:18 AUTHOR: SRIKANTH LORENZ EXP COSIGNER: URGENCY: STATUS: COMPLETED Patient Name: REID QUEZADA Patient SSN: [id number] Date and time of Appointment No show : 10/25/23 15:27 PATIENT PHONE - PHONE NUMBER [[email or web address]] - Patient's medical record was reviewed. Follow-up actions were determined and initiated: Please check/complete as applies: [X]Telephoned Directly [ ]Re-scheduled for next available appt [X]Sent a N0-show letter ( must call for appointment) [ ]Other (Emergent/Overbook, etc.): Additional Comments: lvm and sent no show letter Future Clinic Visits 11/09/2023 09:00 CWM/NO/VVC/PAIN 1 12/27/2023 13:30 CWM/NO/MHC/SHRUTHI 01/05/2024 13:00 CWM/NO/PACT 4 /es/ SRIKANTH LORENZ Advanced Correctional Case Manager Signed: 10/25/2023 15:28 SRIKANTH LORENZ [facility]
--- OUTSIDE RECORDS SUMMARY | 2024-07-05 03:11 | XMS_ITS | Encounter Summary ---
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 [place] Organization [facility] [place] Address [address] [place] [address] Care Team Providers Care Associate Merchandiser Name Role Phone ROMANA CASTILLO Primary Care [...] Garcia's Name Patient's Relationship to Policy Garcia [facility] (MEDICAID) MEDICAID [facility]AN [facility] May 14, 2009 [id number] SAMPLE,ROCCO MOORE PATIENT [facility] MEDICAID [facility] May 14, 2009 [id number] SAMPLE,ROCCO MOORE PATIENT MEDICAID MEDICAID [facility] [place] Jul 26, 2018 MEDICAI D [id number] SAMPLE,ROCCO MOORE PATIENT MEDICARE (WNR) MEDICARE (M) PART A November 24, 2015 PART A [id number] SAMPLE,ROCCO MOORE PATIENT MEDICARE (WNR) MEDICARE (M) PART B November 24, 2015 PART B [id number] SAMPLE,ROCCO MOORE PATIENT Selected Encounter This section includes the information on record at [facility] for the Encounter. Date/Time Encounter Type Encounter Description Reason Pro vider Source IHE Encounter Template Text not used by [facility]
--- OUTSIDE RECORDS SUMMARY | 2024-07-05 03:11 | XMS_ITS | Encounter Summary ---
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 [place] Organization [facility] [place] Address [address] [place] [address] Care Team Providers Care Nut Sheller Name Role Phone ROMANA CASTILLO Primary Care [...] Garcia's Name Patient's Relationship to Policy Garcia [facility] (MEDICAID) MEDICAID [facility]UMAN [facility] May 14, 2009 [id number] SAMPLE,ROCCO MOORE PATIENT [facility] MEDICAID [facility] May 14, 2009 [id number] SAMPLE,ROCCO MOORE PATIENT MEDICAID MEDICAID [facility] [place] Jul 26, 2018 MEDICAI D [id number] SAMPLE,ROCCO MOORE PATIENT MEDICARE (WNR) MEDICARE (M) PART A November 24, 2015 PART A [id number] SAMPLE,ROCCO MOORE PATIENT MEDICARE (WNR) MEDICARE (M) PART B November 24, 2015 PART B [id number] SAMPLE,ROCCO MOORE PATIENT Selected Encounter This section includes the information on record at [facility] for the Encounter. Date/Time Encounter Type Encounter Description Reason Pro vider Source IHE Encounter Template Text not used by [facility]
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
--- OUTSIDE RECORDS SUMMARY | 2024-07-05 03:12 | XMS_ITS | Encounter Summary ---
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 [place] Organization [facility] [place] [facility] [place] Address [address] [place] [id number] Care Team Providers Care Transporter Driver Name Role Phone ROMANA CASTILLO Primary Care [...] Garcia's Name Patient's Relationship to Policy Garcia [facility] (MEDICAID) [facility] May 14, 2009 [id number] SAMPLE,ROCCO MOORE PATIENT [facility] MEDICAID [facility] HUMAN [facility] May 14, 2009 [id number] SAMPLE,ROCCO MOORE PATIENT MEDICAID MEDICAID [facility] [place] Jul 26, 2018 MEDICAI D [id number] SAMPLE,ROCCO MOORE PATIENT MEDICARE (WNR) MEDICARE (M) PART A November 24, 2015 PART A [id number] SAMPLE,ROCCO MOORE PATIENT MEDICARE (WNR) MEDICARE (M) PART B November 24, 2015 PART B [id number] ROCCO QUEZADA PATIENT Selected Encounter This section includes the information on record at [place] for the Encounter. Date/Time Encounter Type Encounter Description Reason Pro vider Source Nov 01, 2023 12:00 AM Outpatient Encounter EVENT (HISTORICAL) [...] [facility] [place] [facility] Jan [...] 02, 2024 11:00 AM AMBULATORY - MEDICINE [place] C [facility]TRL [...] 31, 2023 11:00 AM VA-TOBACCO FORMER USER [facility] Tobacco Use History This section includes a history of the smoking, or tobacco-related health factors, that were collected on or before the date of the Encounter. The data comes from the [place] facility where the Encounter took place. Date/Time Smoking Status/Tobac co Use Comment Facility Mar 31, 2023 11:00 AM VA-TOBACCO QUIT 1 TO < 5 YRS [facility] [place] [facility] Mar 25, 2022 10:30 AM VA-TOBACCO NEVER USED [facility] [place] [facility] Mar 19, 2021 02:00 PM VA-TOBACCO FORMER USER [facility] [place] [facility] Mar 19, 2021 02:00 PM VA-TOBACCO QUIT < 1 YEAR [facility] [place] [facility] Sep 20, 2018 11:24 AM VA-TOBACCO USE DECLINED TO ANSWER [facility] [place] [facility] Oct [...] PM QUIT TOBACCO USE IN PAST YEAR [facility] [place] [facility] Jun 07, 2012 08:16 AM V1-PT DECLINES TOBACCO CESSATION MEDS [facility] [place] [facility] Jun 07, 2012 08:16 AM V1-PT THINKING ABOUT QUIT TOBACCO USE [facility] [place] [facility] Jan 05, 2012 09:00 AM CURRENT SMOKER intermittenly [facility] [place] [facility] Jan 05, 2012 09:00 AM V1-PT DECLINES REF TO TOBACCO CESS PRGM [facility] [place] [facility] Jan 05, 2012 09:00 AM V1-PT DECLINES TOBACCO CESSATION MEDS [facility] [place] [facility] Jan 05, 2012 09:00 AM V1-PT THINKING ABOUT QUIT TOBACCO USE [facility] [place] [facility] Feb 17, 2011 09:52 AM V1-PT DECLINES TOBACCO CESSATION MEDS [facility] [place] [facility] Feb 17, 2011 09:52 AM V1-PT THINKING ABOUT QUIT TOBACCO USE [facility] [place] [facility] Aug 13, 2010 11:31 AM QUIT TOBACCO USE IN PAST YEAR [facility] [place] [facility] Feb 19, 2010 01:26 PM QUIT TOBACCO USE IN PAST YEAR [facility] [place] [facility] Sep 13, 2009 11:04 AM QUIT TOBACCO USE IN PAST YEAR [facility] [place] [facility] Feb 05, 2009 08:29 AM V1-PT DECLINES REF [facility] [place] [facility] Feb 05, 2009 08:29 AM V1-PT DECLINES TOBACCO CESSATION MEDS [facility] [place] [facility] Feb 05, 2009 08:29 AM V1-PT THINKING ABOUT QUIT TOBACCO USE [facility] [place] [facility] Aug 22, 2008 09:04 AM QUIT TOBACCO USE IN PAST YEAR [facility] [place] [facility] Mar 12, 2008 10:40 AM V1-PT DECLINES REF TO TOBACCO CESS PRGM [facility] [place] [facility] Mar 12, 2008 10:40 AM V1-PT DECLINES TOBACCO CESSATION MEDS [facility] [place] [facility] Mar 12, 2008 10:40 AM V1-PT NOT INTERESTED IN QUIT TOBACCO USE [facility] [place] [facility] Mar 08, 2008 09:37 AM CURRENT SMOKER smokes one pack a day for about 10 years ago. [facility] Encounter Notes: All associated encounter notes This section contains the clinical notes associated to the Encounter. Date/Time Encounter Note(s) Provider Source Nov 01, 2023 12:00 AM NONVA NOTE: LOCAL TITLE: NON-[facility] STANDARD TITLE: NONVA NOTE DATE OF NOTE: NOV 01, 2023 ENTRY DATE: NOV 17, 2023@10:53:46 AUTHOR: DAYAN PAULINO EXP COSIGNER: URGENCY: STATUS: COMPLETED VistA Imaging - Scanned Document SCANNED DOCUMENT SIGNATURE NOT REQUIRED Electronically Filed: 11/17/2023 by: DAYAN PAULINO GROUNDS/MAINTENANCE SPECIALIST DAYAN PAULINO [facility] Nov 01, 2023 12:00 AM NONVA NOTE: LOCAL TITLE: NON-[facility] STANDARD TITLE: NONVA NOTE DATE OF NOTE: NOV 01, 2023 ENTRY DATE: NOV 16, 2023@12:16:22 AUTHOR: JEFF WILLS EXP COSIGNER: URGENCY: STATUS: COMPLETED VistA Imaging - Scanned Document SCANNED DOCUMENT SIGNATURE NOT REQUIRED Electronically Filed: 11/16/2023 by: JEFF WILLS GROUNDS/MAINTENANCE SPECIALIST JEFF WILLS [facility]
--- OUTSIDE RECORDS SUMMARY | 2024-07-05 03:12 | XMS_ITS | Encounter Summary ---
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 [place] Organization [facility] of [place] [facility] [place] Address [address] [place] [id number] Care Team Providers Care Mouthpiece Maker Name Role Phone ROMANA CASTILLO Primary Care [...] Garcia's Name Patient's Relationship to Policy Garcia [facility] (MEDICAID) [facility] May 14, 2009 [id number] SAMPLE,ROCCO MOORE PATIENT [facility] MEDICAID [facility] May 14, 2009 [id number] SAMPLE,ROCCO MOORE PATIENT MEDICAID MEDICAID [facility] [place] Jul 26, 2018 MEDICAI D [id number] SAMPLE,ROCCO MOORE PATIENT MEDICARE (WNR) MEDICARE (M) PART A November 24, 2015 PART A [id number] SAMPLE,ROCCO MOORE PATIENT MEDICARE (WNR) MEDICARE (M) PART B November 24, 2015 PART B [id number] ROCCO QUEZADA PATIENT Selected Encounter This section includes the information on record at [place] for the Encounter. Date/Time Encounter Type Encounter Description Reason Pro vider Source Nov 12, 2023 12:07 PM Outpatient Encounter PAIN CLINIC [facility] Encounter Template Text not used by [place] Plan of Treatment: Future Appointments (+ 6 months) and Future Tests (+/- 45 days) The Plan of Treatment section includes future care activities for the patient from all [place] treatmentfacilities. This section includes future appointments and future orders which are active, pending or scheduled. Future Appointments This section includes appointments that were scheduled to occur 6 months from the date of the Encounter, up to a maximum of 20 appointments. The data comes from all [place] treatment facilities. Appointment Date/Time Appointment Type Appointme nt Facility Name Nov 17, 2023 09:30 AM AMBULATORY - MEDICINE [place] [facility] [place] [facility] Jan 03, 2024 11:00 AM AMBULATORY - PSYCHIATRY [facility] [place] [facility] Jan 17, 2024 03:00 PM AMBULATORY - MEDICINE [place] [facility] [place] [facility] Jan 26, 2024 09:30 AM AMBULATORY - MEDICINE AL [facility] [place] [facility] Feb 03, 2024 03:00 PM AMBULATORY - MEDICINE [place] [facility] [place] [facility] Feb 14, 2024 11:00 AM AMBULATORY - PSYCHIATRY [facility] [place] [facility] Mar 06, 2024 09:00 AM AMBULATORY - MEDICINE [place] [facility] [place] [facility] Apr 03, 2024 11:30 AM AMBULATORY - MEDICINE [place] [facility] [place] [facility] Apr 13, 2024 11:00 AM AMBULATORY - PSYCHIATRY [facility] [place] [facility] Apr 13, 2024 02:00 PM AMBULATORY - MEDICINE AL [facility] [place] [facility] Apr 13, 2024 03:00 PM AMBULATORY - MEDICINE [place] [facility] [place] [facility] May 02, 2024 11:00 AM AMBULATORY - MEDICINE AL [facility] [place] [facility] Social History: Smoking Status (Most current) and Tobacco Use (All prior to encounter date) This section includes the most current, and the historical, smoking and tobacco- related health factors from the [place] facility where the Encounter took place. Current Smoking Status This section includes the most current smoking, or tobacco-related health factor, from the [place] facility where the Encounter took place. Date/Time Current Smoking Status Comment Facil it Mar 31, 2023 11:00 AM VA-TOBACCO [facility] Tobacco Use History This section includes a history of the smoking, or tobacco-related health factors, that were collected on or before the date of the Encounter. The data comes from the [place] facility where the Encounter took place. Date/Time Smoking Status/Tobac co Use Comment Facility Mar 31, 2023 11:00 AM VA-TOBACCO QUIT 1 TO < 5 YRS [facility] [place] [facility] Mar 25, 2022 10:30 AM VA-TOBACCO NEVER USED [place] [facility] [place] [facility] Mar 19, 2021 02:00 PM VA-TOBACCO FORMER USER [place] [facility] [place] [facility] Mar 19, 2021 02:00 PM VA-TOBACCO QUIT < 1 YEAR [facility] [place] [facility] Sep 20, 2018 11:24 AM VA-TOBACCO USE DECLINED TO ANSWER [place] [facility] [place] [facility] Oct 21, 2017 08:13 AM QUIT TOBACCO USE IN PAST YEAR [facility] [place] [facility] Dec 30, 2016 08:28 AM QUIT TOBACCO USE 1-7 YEARS AGO [facility] [place] [facility] Jun 04, 2016 08:43 AM QUIT TOBACCO USE 1-7 YEARS AGO [facility] [place] [facility] May 17, 2015 08:45 AM QUIT TOBACCO USE 1-7 YEARS AGO quit 2 years ago. [facility] [place] [facility] Jun 07, 2014 09:25 AM QUIT TOBACCO USE 1-7 YEARS AGO [facility] [place] [facility] November 30, 2013 08:44 AM QUIT TOBACCO USE IN PAST YEAR [facility] [place] [facility] May 22, 2013 10:10 AM QUIT TOBACCO USE IN PAST YEAR [facility] [place] [facility] December 01, 2012 01:54 PM QUIT TOBACCO USE IN PAST YEAR [facility] [place] [facility] Jun 07, 2012 08:16 AM V1-PT DECLINES TOBACCO CESSATION MEDS [facility] [place] [facility] Jun 07, 2012 08:16 AM V1-PT THINKING ABOUT QUIT TOBACCO USE [facility] [place] [facility] Jan 05, 2012 09:00 AM CURRENT SMOKER intermittenly [facility] [place] [facility] Jan 05, 2012 09:00 AM V1-PT DECLINES REF [facility]ACCO [facility] [place] [facility] Jan 05, 2012 09:00 AM V1-PT DECLINES TOBACCO CESSATION MEDS [facility] [place] [facility] Jan 05, 2012 09:00 AM V1-PT THINKING ABOUT QUIT TOBACCO USE [facility] [place] [facility] Feb 17, 2011 09:52 AM V1-PT DECLINES TOBACCO CESSATION MEDS [facility] [place] [facility] Feb 17, 2011 09:52 AM V1-PT THINKING ABOUT QUIT TOBACCO USE [facility] [place] [facility] Aug 13, 2010 11:31 AM QUIT TOBACCO [facility]ST [facility] [place] [facility] Feb 19, 2010 01:26 PM QUIT TOBACCO USE IN PAST YEAR [facility] [place] [facility] Sep 13, 2009 11:04 AM QUIT TOBACCO USE IN PAST YE[facility] [place] [facility] Feb 05, 2009 08:29 AM V1-PT DECLINES REF TO TOBACCO CESS [facility] [place] [facility] Feb 05, 2009 08:29 AM V1-PT DECLINES TOBACCO CESSATION MEDS [facility] [place] [facility] Feb 05, 2009 08:29 AM V1-PT THINKING ABOUT QUIT TOBACCO USE [facility] [place] [facility] Aug 22, 2008 09:04 AM QUIT TOBACCO USE IN PAST YEAR [facility] [place] [facility] Mar 12, 2008 10:40 AM V1-PT DECLINES REF TO TOBACCO CESS PRGM [facility] [place] [facility] Mar 12, 2008 10:40 AM V1-PT DECLINES TOBACCO CESSATION MEDS [facility] [place] [facility] Mar 12, 2008 10:40 AM V1-PT NOT INTERESTED IN QUIT TOBACCO USE [facility] [place] [facility] Mar 08, 2008 09:37 AM CURRENT SMOKER smokes one pack a day for about 10 years ago. [facility] [place] [facility] Encounter Notes: All associated encounter notes This section contains the clinical notes associated to the Encounter. Date/Time Encounter Note(s) Provider Source Nov 12, 2023 12:07 PM TELEPHONE ENCOUNTE R NOTE: LOCAL TITLE: TELEPHONE NOTE/SPECIALTY CLINIC STANDARD TITLE: TELEPHONE ENCOUNTER NOTE DATE OF NOTE: NOV 12, 2023@12:07 ENTRY DATE: NOV 12, 2023@12:07:33 AUTHOR: BEULAH LOPEZ EXP COSIGNER: URGENCY: STATUS: COMPLETED TELEPHONE NOTE/SPECIALTY CLINIC Has ADDENDA lm on pain clinic VM asking for refill of seboxone REILLY. She just realized she will run out and is asking for refill by this weekend. please advise [phone] /divya/ BEULAH LOPEZ ADVANCED SUBSTATION OPERATOR HELPER Signed: 11/12/2023 12:09 Receipt Acknowledged By: 11/16/2023 13:35 /es/ Gal Solorio MD STAFF PHYSICIAN 11/12/2023 13:37 /es/ ERIC DOUGLAS CLINICAL PHARMACIST PRACTITIONER, PAIN 11/12/2023 14:37 /es/ JESSIKA CORONEL MD PHYSICIAN 11/12/2023 13:21 /es/ URBANO FOSTER, PHARM.D CLINICAL PHARMACIST PRACTITIONER 11/12/2023 ADDENDUM STATUS: COMPLETED Called and spoke with . [place] said she was informed to increase from taking 4 tablets per day of buprenorphine 2mg upto 8 tablets per day. She has been taking 8 tablets per day for 3 weeks now and report that buprenorphine is working better for her pain than oxycodone. She states she will be out of buprenorphine 2mg midday on 11/13/23. She had a [facility] appt with Dr. Solorio on 11/09/23 but state that she had internet connection issue and had to reschedule the appt to 11/17/23. 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 and follow up with Dr. Solorio as scheduled appt. /divya/ URBANO FOSTER, PHARM.D CLINICAL PHARMACIST PRACTITIONER Signed: 11/12/2023 13:25 BEULAH LOPEZ [facility]
--- OUTSIDE RECORDS SUMMARY | 2024-07-05 03:13 | XMS_ITS ---
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 (ID) Organization Department of Vetera Affairs (ID) Address [address] [place] [id number] Care Team Providers Care Repairer Pump Name Role Phone ROMANA CASTILLO Primary Care [...] Garcia's Name Patient's Relationship to Policy Garcia [facility] (MEDICAID) [facility] May 14, 2009 [id number] SAMPLE,ROCCO MOORE PATIENT [facility] MEDICAID [facility] May 14, 2009 [id number] SAMPLE,ROCCO MOORE PATIENT MEDICAID MEDICAID [facility] Jul 26, 2018 MEDICAI D [id number] SAMPLE,ROCCO MOORE PATIENT MEDICARE (WNR) MEDICARE (M) PART A November 24, 2015 PART A [id number] [phone] SAMPLE,ROCCO MOORE PATIENT MEDICARE (WNR) MEDICARE (M) PART B November 24, 2015 PART B [id number] [phone] [id number] ROCCO QUEZADA PATIENT Selected Encounter This section includes the information on record at ID for the Encounter. Date/Time Encounter Type Encounter Description Reason Pro vider Source December 06, 2023 11:50 AM Outpatient Encounter TELEPHONE PRIMARY CARE IHE Encounter Template Text not used by ID Plan of Treatment: Future Appointments (+ 6 months) and Future Tests (+/- 45 days) The Plan of Treatment section includes future care activities for the patient from all ID treatmentfacilities. This section includes future appointments and future orders which are active, pending or scheduled. Future Appointments This section includes appointments that were scheduled to occur 6 months from the date of the Encounter, up to a maximum of 20 appointments. The data comes from all ID treatment facilities. Appointment Date/Time Appointment Type Appointme nt Facility Name Jan 03, 2024 11:00 AM AMBULATORY - PSYCHIATRY [facility] [place] [facility] Jan 17, 2024 03:00 PM AMBULATORY - MEDICINE [place] [facility] [place] [facility] Jan 26, 2024 09:30 AM AMBULATORY - MEDICINE [facility] [place] [facility] Feb 03, 2024 03:00 PM AMBULATORY - MEDICINE [facility] [place] [facility] Feb 14, 2024 11:00 AM AMBULATORY - PSYCHIATRY [facility] [place] [facility] Mar 06, 2024 09:00 AM AMBULATORY - MEDICINE [facility] [place] [facility] Apr 03, 2024 11:30 AM AMBULATORY - MEDICINE [facility] [place] [facility] Apr 13, 2024 11:00 AM AMBULATORY - PSYCHIATRY [facility] [place] [facility] Apr 13, 2024 02:00 PM AMBULATORY - MEDICINE [facility] [place] [facility] Apr 13, 2024 03:00 PM AMBULATORY - MEDICINE [facility] [place] [facility] May 02, 2024 11:00 AM AMBULATORY - MEDICINE [facility] [place] [facility] May 15, 2024 11:30 AM AMBULATORY - PSYCHIATRY [facility] [place] [facility] May 25, 2024 11:30 AM AMBULATORY - MEDICINE ID [facility] [place] [facility] Active, Pending, and Scheduled Orders This section includes a listing of several types of active, pending, and scheduled orders, including clinic medications orders, diagnostic test orders, procedure orders and consult orders; where the start date of the order is 45 days before the date of the Encounter or 45 days after the date of theEncounter. The data comes from all [facility] facilities. Test Date/Time Test Type Test Details Facility Name Jan 17, 2024 12:00 AM Laboratory - Chemistry Order BASIC METABOLIC PANEL (non-fasting) BLOOD (SST-SERUM) [facility] Jan 17, 2024 12:00 AM Laboratory - Chemistry Order LIPID PANEL, NON FASTING BLOOD (SST-SERUM) [facility] Jan 17, 2024 12:00 AM Laboratory - Chemistry Order LIVER FUNCTION BLOOD (SST-SERUM) [facility] Jan 17, 2024 12:00 AM Laboratory - Chemistry Order MICROALBUMIN CREATININE RATIO PANEL URINE (RANDOM) [facility] Jan 17, 2024 12:00 AM Laboratory - Chemistry Order TSH BLOOD (SST-SERUM) [facility] Social History: Smoking Status (Most current) and Tobacco Use (All prior to encounter date) This section includes the most current, and the historical, smoking and tobacco- related health factors from the ID facility where the Encounter took place. Current Smoking Status This section includes the most current smoking, or tobacco-related health factor, from the ID facility where the Encounter took place. Date/Time Current Smoking Status Comment Rosana humphrey Mar 31, 2023 11:00 AM ID-TOBACCO FORMER USER [facility] Tobacco Use History This section includes a history of the smoking, or tobacco-related health factors, that were collected on or before the date of the Encounter. The data comes from the ID facility where the Encounter took place. Date/Time Smoking Status/Tobac co Use Comment Facility Mar 31, 2023 11:00 AM ID-TOBACCO QUIT 1 TO < 5 YRS [facility] Mar 25, 2022 10:30 AM VA-TOBACCO NEVER USED [facility] Mar 19, 2021 02:00 PM VA-TOBACCO FORMER USER [facility] Mar 19, 2021 02:00 PM VA-TOBACCO QUIT < 1 YEAR [facility] [place] [facility] Sep 20, 2018 11:24 AM VA-TOBACCO USE DECLINED TO ANSWER [facility] [place] [facility] Oct 21, 2017 08:13 AM QUIT TOBACCO USE IN PAST YEAR [facility] [place] [facility] Dec 30, 2016 08:28 AM QUIT TOBACCO USE 1-7 YEARS AGO [facility] [place] [facility] Jun 04, 2016 08:43 AM QUIT TOBACCO USE 1-7 YEARS AGO [facility] [place] [facility] May 17, 2015 08:45 AM QUIT TOBACCO USE 1-7 YEARS AGO quit 2 years ago. [facility] [place] [facility] Jun 07, 2014 09:25 AM QUIT TOBACCO USE 1-7 YEARS AGO [facility] [place] [facility] November 30, 2013 08:44 AM QUIT TOBACCO USE IN PAST YEAR [facility] [place] [facility] May 22, 2013 10:10 AM QUIT TOBACCO USE IN PAST YEAR [facility] [place] [facility] December 01, 2012 01:54 PM QUIT TOBACCO USE IN PAST YEAR [facility] [place] [facility] Jun 07, 2012 08:16 AM V1-PT DECLINES TOBACCO CESSATION [facility]S [facility] [place] [facility] Jun 07, 2012 08:16 AM V1-PT THINKING ABOUT QUIT TOBACCO USE [facility] [place] [facility] Jan 05, 2012 09:00 AM CURRENT SMOKER intermittenly [facility] [place] [facility] Jan 05, 2012 09:00 AM V1-PT DECLINES REF TO TOBACCO CESS [facility] [place] [facility] Jan 05, 2012 09:00 AM V1-PT DECLINES TOBACCO CESSATION MEDS [facility] [place] [facility] Jan 05, 2012 09:00 AM V1-PT THINKING ABOUT QUIT TOBACCO USE [facility] [place] [place] [facility] Feb 17, 2011 09:52 AM V1-PT DECLINES TOBACCO CESSATION [facility] [place] [facility] Feb 17, 2011 09:52 AM V1-PT THINKING ABOUT QUIT [facility]BACCO USE [facility] [place] [facility] Aug 13, 2010 11:31 AM QUIT TOBACCO USE IN PAST YEAR [facility] Feb 19, 2010 01:26 PM QUIT TOBACCO USE IN PAST YEAR [facility] Sep 13, 2009 11:04 AM QUIT TOBACCO USE IN PAST YEAR [facility] Feb 05, 2009 08:29 AM V1-PT DECLINES REF TO TOBACCO CESS PRGM [facility] Feb 05, 2009 08:29 AM V1-PT DECLINES TOBACCO CESSATION MEDS [facility] Feb 05, 2009 08:29 AM V1-PT THINKING ABOUT QUIT TOBACCO USE [facility] Aug 22, 2008 09:04 AM QUIT TOBACCO USE IN PAST YEAR [facility] Mar 12, 2008 10:40 AM V1-PT DECLINES REF TO TOBACCO CESS PRGM [facility] Mar 12, 2008 10:40 AM V1-PT DECLINES TOBACCO CESSATION MEDS [facility] Mar 12, 2008 10:40 AM V1-PT NOT INTERESTED IN QUIT TOBACCO USE [facility] Mar 08, 2008 09:37 AM CURRENT SMOKER smokes one pack a day for about 10 years ago. [facility] Encounter Notes: All associated encounter notes This section contains the clinical notes associated to the Encounter. Date/Time Encounter Note(s) Provider Source December 07, 2023 09:36 AM ADDENDUM: LOCAL TITLE: Addendum STANDARD TITLE: ADDENDUM DATE OF NOTE: DECEMBER 07, 2023@09:36:36 ENTRY DATE: DECEMBER 07, 2023@09:36:36 AUTHOR: HARVEY HERNANDES EXP COSIGNER: URGENCY: STATUS: COMPLETED Adding RT to order mask. Thank you! /divya/ HARVEY MOLINA Signed: 12/07/2023 09:37 Receipt Acknowledged By: 12/07/2023 16:23 /divya/ СВЕТЛАНА DHILLON RESPIRATORY THERAPIST 12/07/2023 11:38 /es/ ROHAN CROW CRT RESPIRATORY THERAPIST === --- Original Document --- 12/06/23 TELEPHONE NOTE/SPECIALTY CLINIC: Msg left on the Specialty Care at [phone] ok to leave a detailed message. Has a rash on her face from her CPAP mask. Requesting a small mask with memory foam. She has tried that from a friend and the rash went away in the past. /es/ VIKTOR TONG HAS REEL ASSEMBLER Signed: 12/06/2023 11:52 Receipt Acknowledged By: 12/07/2023 09:37 /divya/ HARVEY PENG [facility] December 06, 2023 11:50 AM TELEPHONE ENCOUNTER NOTE: LOCAL TITLE: TELEPHONE NOTE/SPECIALTY CLINIC STANDARD TITLE: TELEPHONE ENCOUNTER NOTE DATE OF NOTE: DECEMBER 06, 2023@11:50 ENTRY DATE: DECEMBER 06, 2023@11:50:45 AUTHOR: VIKTOR TONG COSIGNER: URGENCY: STATUS: COMPLETED TELEPHONE NOTE/SPECIALTY CLINIC Has ADDENDA Msg left on the Specialty Care at [phone] ok to leave a detailed message. Has a rash on her face from her CPAP mask. Requesting a small mask with memory foam. She has tried that from a friend and the rash went away in the past. /divya/ VIKTOR TONG HAS REEL ASSEMBLER Signed: 12/06/2023 11:52 Receipt Acknowledged By: 12/07/2023 09:37 /divya/ HARVEY MOLINA 12/07/2023 ADDENDUM STATUS: COMPLETED Adding RT to order mask. Thank you! /divya/ HARVEY MOLINA Signed: 12/07/2023 09:37 Receipt Acknowledged By: * AWAITING SIGNATURE * СВЕТЛАНА DHILLON * AWAITING SIGNATURE * ROHAN CROW MELISSA CAROLINE [facility]
--- OUTSIDE RECORDS SUMMARY | 2024-07-05 03:13 | XMS_ITS | Encounter Summary ---
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 Name Role Phone ROMANA CASTILLO Primary Care [...] Garcia's Name Patient's Relationship to Policy Garcia [facility] (MEDICAID) [facility] May 14, 2009 [id number] SAMPLE,ROCCO MOORE PATIENT [facility] MEDICAID [facility] May 14, 2009 [id number] SAMPLE,ROCCO MOORE PATIENT MEDICAID MEDICAID [facility] Jul 26, 2018 MEDICAI D [id number] SAMPLE,ROCCO MOORE PATIENT MEDICARE (WNR) MEDICARE (M) PART A November 24, 2015 PART A [id number] SAMPLE,ROCCO MOORE PATIENT MEDICARE (WNR) MEDICARE (M) PART B November 24, 2015 PART B [id number] ROCCO QUEZADA PATIENT Selected Encounter This section includes the information on record at OR for the Encounter. Date/Time Encounter Type Encounter Description Reason Pro vider Source December 06, 2023 09:00 AM Outpatient Encounter PAIN CLINIC IHE Encounter Template Text not used by OR Plan of Treatment: Future Appointments (+ 6 months) and Future Tests (+/- 45 days) The Plan of Treatment section includes future care activities for the patient from all OR treatmentfacilities. This section includes future appointments and future orders which are active, pending or scheduled. Future Appointments This section includes appointments that were scheduled to occur 6 months from the date of the Encounter, up to a maximum of 20 appointments. The data comes from all OR treatment facilities. Appointment Date/Time Appointment Type Appointme nt Facility Name Jan 03, 2024 11:00 AM AMBULATORY - PSYCHIATRY [facility] [place] [facility] Jan 17, 2024 03:00 PM AMBULATORY - MEDICINE [facility] [place] [facility] Jan 26, 2024 09:30 AM AMBULATORY - MEDICINE [facility] [place] [facility] Feb 03, 2024 03:00 PM AMBULATORY - MEDICINE [facility] [place] [facility] Feb 14, 2024 11:00 AM AMBULATORY - PSYCHIATRY [facility] [place] [facility] Mar 06, 2024 09:00 AM AMBULATORY - MEDICINE [facility] [place] [facility] Apr 03, 2024 11:30 AM AMBULATORY - MEDICINE [facility] [place] [facility] Apr 13, 2024 11:00 AM AMBULATORY - PSYCHIATRY [facility] [place] [facility] Apr 13, 2024 02:00 PM AMBULATORY - MEDICINE [facility] [place] [facility] Apr 13, 2024 03:00 PM AMBULATORY - MEDICINE [facility] [place] [facility] May 02, 2024 11:00 AM AMBULATORY - MEDICINE [facility] [place] [facility] May 15, 2024 11:30 AM AMBULATORY - PSYCHIATRY [facility] [place] [facility] May 25, 2024 11:30 AM AMBULATORY - MEDICINE [place] [place] [facility] Active, Pending, and Scheduled Orders This section includes a listing of several types of active, pending, and scheduled orders, including clinic medications orders, diagnostic test orders, procedure orders and consult orders; where the start date of the order is 45 days before the date of the Encounter or 45 days after the date of theEncounter. The data comes from all OR treatment facilities. Test Date/Time Test Type Test Details Facility Name Jan 17, 2024 12:00 AM Laboratory - Chemistry Order LIPID PANEL, NON FASTING BLOOD (SST-SERUM) [facility] Jan 17, 2024 12:00 AM Laboratory - Chemistry Order BASIC METABOLIC PANEL (non-fasting) BLOOD (SST-SERUM) [facility] Jan 17, 2024 12:00 AM Laboratory - Chemistry Order LIVER FUNCTION BLOOD (SST-SERUM) [facility] Jan 17, 2024 12:00 AM Laboratory - Chemistry Order TSH BLOOD (SST-SERUM) [facility] Jan 17, 2024 12:00 AM Laboratory - Chemistry Order MICROALBUMIN CREATININE RATIO PANEL URINE (RANDOM) [facility] Social History: Smoking Status (Most current) and Tobacco Use (All prior to encounter date) This section includes the most current, and the historical, smoking and tobacco- related health factors from the OR facility where the Encounter took place. Current Smoking Status This section includes the most current smoking, or tobacco-related health factor, from the OR facility where the Encounter took place. Date/Time Current Smoking Status Comment Rosana humphrey Mar 31, 2023 11:00 AM VA-TOBACCO FORMER USER [facility] Tobacco Use History This section includes a history of the smoking, or tobacco-related health factors, that were collected on or before the date of the Encounter. The data comes from the OR facility where the Encounter took place. Date/Time Smoking Status/Tobac co Use Comment Facility Mar 31, 2023 11:00 AM VA-TOBACCO QUIT 1 TO < 5 YRS [facility] Mar 25, 2022 10:30 AM VA-TOBACCO NEVER USED [facility] Mar 19, 2021 02:00 PM VA-TOBACCO FORMER USER [facility] Mar 19, 2021 02:00 PM VA-TOBACCO QUIT < 1 YEAR [place] [facility] [place] [place] [facility] Sep 20, 2018 11:24 AM VA-TOBACCO USE DECLINED TO ANSWER [place] [facility] [place] [facility] Oct 21, 2017 08:13 AM QUIT TOBACCO USE IN PAST YEAR [place] [facility] [place] [place] [facility] Dec 30, 2016 08:28 AM QUIT TOBACCO USE 1-7 YEARS AGO [place] [facility] [place] [place] [facility] Jun 04, 2016 08:43 AM QUIT TOBACCO USE 1-7 YEARS AGO [place] [facility] [place] [place] [facility] May 17, 2015 08:45 AM QUIT TOBACCO USE 1-7 YEARS AGO quit 2 years ago. [place] [facility] [place] [facility] Jun 07, 2014 09:25 AM QUIT TOBACCO USE 1-7 YEARS AGO [place] [facility] [place] [place] [facility] November 30, 2013 08:44 AM QUIT TOBACCO [facility]ST [facility] [place] [facility] May 22, 2013 10:10 AM QUIT TOBACCO USE IN PAST YEAR [place] [facility] [place] [facility] December 01, 2012 01:54 PM QUIT TOBACCO USE IN PAST YEAR [facility] [place] [facility] Jun 07, 2012 08:16 AM V1-PT DECLINES TOBACCO CESSATION MEDS [facility] [place] [facility] Jun 07, 2012 08:16 AM V1-PT THINKING ABOUT QUIT TOBACCO USE [facility] [place] [facility] Jan 05, 2012 09:00 AM CURRENT SMOKER intermittenly [facility] [place] [facility] Jan 05, 2012 09:00 AM V1-PT DECLINES REF TO TOBACCO CESS [facility] [place] [facility] Jan 05, 2012 09:00 AM V1-PT DECLINES TOBACCO CESSATION MEDS [facility] [place] [facility] Jan 05, 2012 09:00 AM V1-PT THINKING ABOUT QUIT [facility]BACCO USE [facility] [place] [facility] Feb 17, 2011 09:52 AM V1-PT DECLINES TOBACCO CESSATION [facility] [place] [facility] Feb 17, 2011 09:52 AM V1-PT THINKING ABOUT QUIT [facility]ACCO [facility] [place] [facility] Aug 13, 2010 11:31 AM QUIT TOBACCO USE IN PAST YEAR [facility] Feb 19, 2010 01:26 PM QUIT TOBACCO USE IN PAST YEAR [facility] Sep 13, 2009 11:04 AM QUIT TOBACCO USE IN PAST YEAR [facility] Feb 05, 2009 08:29 AM V1-PT DECLINES REF TO TOBACCO CESS PRGM [facility] Feb 05, 2009 08:29 AM V1-PT DECLINES TOBACCO CESSATION MEDS [facility] Feb 05, 2009 08:29 AM V1-PT THINKING ABOUT QUIT TOBACCO USE [facility] Aug 22, 2008 09:04 AM QUIT TOBACCO USE IN PAST YEAR [facility] Mar 12, 2008 10:40 AM V1-PT DECLINES REF TO TOBACCO CESS PRGM [facility] Mar 12, 2008 10:40 AM V1-PT DECLINES TOBACCO CESSATION MEDS [facility] Mar 12, 2008 10:40 AM V1-PT NOT INTERESTED IN QUIT TOBACCO USE [facility] Mar 08, 2008 09:37 AM CURRENT SMOKER smokes one pack a day for about 10 years ago. [facility] Encounter Notes: All associated encounter notes This section contains the clinical notes associated to the Encounter. 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
--- OUTSIDE RECORDS SUMMARY | 2024-07-05 03:14 | XMS_ITS | Encounter Summary ---
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 Jul 26, 2018 MEDICAI D [id number] SAMPLE,ROCCO MOORE PATIENT MEDICARE (WNR) MEDICARE (M) PART A November 24, 2015 PART A [id number] SAMPLE,ROCCO MOORE PATIENT MEDICARE (WNR) MEDICARE (M) PART B November 24, 2015 PART B [id number] ROCCO QUEZADA PATIENT Selected Encounter This section includes the information on record at [place] for the Encounter. Date/Time Encounter Type Encounter Description Reason Pro vider Source December 07, 2023 03:43 PM Outpatient Encounter PAIN CLINIC I[facility] Encounter Template Text not used by ME Plan of Treatment: Future Appointments (+ 6 months) and Future Tests (+/- 45 days) The Plan of Treatment section includes future care activities for the patient from all [place] treatmentfacilities. This section includes future appointments and future orders which are active, pending or scheduled. Future Appointments This section includes appointments that were scheduled to occur 6 months from the date of the Encounter, up to a maximum of 20 appointments. The data comes from all [place] treatment facilities. Appointment Date/Time Appointment Type Appointme nt Facility Name Jan 03, 2024 11:00 AM AMBULATORY - PSYCHIATRY [facility] [place] [facility] Jan 17, 2024 03:00 PM AMBULATORY - MEDICINE [facility] [place] [facility] Jan 26, 2024 09:30 AM AMBULATORY - MEDICINE [facility] [facility] Feb 03, 2024 03:00 PM AMBULATORY - MEDICINE [facility] [place] [facility] Feb 14, 2024 11:00 AM AMBULATORY - PSYCHIATRY [facility] [place] [facility] Mar 06, 2024 09:00 AM AMBULATORY - MEDICINE [facility] [facility] Apr 03, 2024 11:30 AM AMBULATORY - MEDICINE [facility] [place] [facility] Apr 13, 2024 11:00 AM AMBULATORY - PSYCHIATRY [facility] [facility] Apr 13, 2024 02:00 PM AMBULATORY - MEDICINE [facility] [facility] Apr 13, 2024 03:00 PM AMBULATORY - MEDICINE [facility] [place] [facility] May 02, 2024 11:00 AM AMBULATORY - MEDICINE [facility] [place] [facility] May 15, 2024 11:30 AM AMBULATORY - PSYCHIATRY [facility] [facility] May 25, 2024 11:30 AM AMBULATORY - MEDICINE [place] [facility] [place] [facility] Active, Pending, and Scheduled Orders This section includes a listing of several types of active, pending, and scheduled orders, including clinic medications orders, diagnostic test orders, procedure orders and consult orders; where the start date of the order is 45 days before the date of the Encounter or 45 days after the date of theEncounter. The data comes from all [place] treatment facilities. Test Date/Time Test Type Test Details Facility Name Jan 17, 2024 12:00 AM Laboratory - Chemistry Order LIPID PANEL, NON FASTING BLOOD (SST-SERUM) [facility] Jan 17, 2024 12:00 AM Laboratory - Chemistry Order BASIC METABOLIC PANEL (non-fasting) BLOOD (SST-SERUM) [facility] Jan 17, 2024 12:00 AM Laboratory - Chemistry Order LIVER FUNCTION BLOOD (SST-SERUM) [facility] Jan 17, 2024 12:00 AM Laboratory - Chemistry Order TSH BLOOD (SST-SERUM) [facility] Jan 17, 2024 12:00 AM Laboratory - Chemistry Order MICROALBUMIN CREATININE RATIO PANEL URINE (RANDOM) [facility] Social History: Smoking Status (Most current) and Tobacco Use (All prior to encounter date) This section includes the most current, and the historical, smoking and tobacco- related health factors from the [place] facility where the Encounter took place. Current Smoking Status This section includes the most current smoking, or tobacco-related health factor, from the [place] facility where the Encounter took place. Date/Time Current Smoking Status Comment Rosana humphrey Mar 31, 2023 11:00 AM VA-TOBACCO FORMER USER [facility] Tobacco Use History This section includes a history of the smoking, or tobacco-related health factors, that were collected on or before the date of the Encounter. The data comes from the [place] facility where the Encounter took place. Date/Time Smoking Status/Tobac co Use Comment Facility Mar 31, 2023 11:00 AM VA-TOBACCO QUIT 1 TO < 5 YRS [facility] Mar 25, 2022 10:30 AM VA-TOBACCO NEVER USED [facility] Mar 19, 2021 02:00 PM VA-TOBACCO FORMER USER [facility] Mar 19, 2021 02:00 PM VA-TOBACCO QUIT < 1 YEAR [facility] [place] [facility] Sep 20, 2018 11:24 AM VA-TOBACCO USE DECLINED TO ANSWER [facility] [facility] Oct 21, 2017 08:13 AM QUIT TOBACCO USE IN PAST YEAR [facility] [place] [facility] Dec 30, 2016 08:28 AM QUIT TOBACCO USE 1-7 YEARS AGO [facility] [place] [facility] Jun 04, 2016 08:43 AM QUIT TOBACCO USE 1-7 YEARS AGO [place] [facility] [place] [facility] May 17, 2015 08:45 AM QUIT TOBACCO USE 1-7 YEARS AGO quit 2 years ago. [place] [facility] [place] [facility] Jun 07, 2014 09:25 AM QUIT TOBACCO USE 1-7 YEARS AGO [place] [facility] [place] [facility] November 30, 2013 08:44 AM QUIT [facility]AC[facility] [place] [facility] May 22, 2013 10:10 AM QUIT TOBACCO USE IN PAST YEAR [place] [facility] [place] [facility] December 01, 2012 01:54 PM QUIT TOBACCO USE IN PAST YEAR [facility] [place] [facility] Jun 07, 2012 08:16 AM V1-PT DECLINES TOBACCO CESSATION MEDS [facility] [place] [facility] Jun 07, 2012 08:16 AM V1-PT THINKING ABOUT QUIT TOBACCO USE [facility] [facility] Jan 05, 2012 09:00 AM CURRENT SMOKER intermittenly [facility] [facility] Jan 05, 2012 09:00 AM V1-PT DECLINES REF TO TOBACCO CESS PRGM [facility] [place] [facility] Jan 05, 2012 09:00 AM V1-PT DECLINES TOBACCO CESSATION MEDS [facility] [place] [facility] Jan 05, 2012 09:00 AM V1-PT THINKING ABOUT QUIT TOBACCO USE [facility] [place] [facility] Feb 17, 2011 09:52 AM V1-PT DECLINES TOBACCO CESSATION MEDS [facility] [place] [facility] Feb 17, 2011 09:52 AM V1-PT THINKING ABOUT QUIT TOBACCO USE [facility] [place] [facility] Aug 13, 2010 11:31 AM QUIT TOBACCO USE IN PAST YEAR [facility] Feb 19, 2010 01:26 PM QUIT TOBACCO USE IN PAST YEAR [facility] Sep 13, 2009 11:04 AM QUIT TOBACCO USE IN PAST YEAR [facility] Feb 05, 2009 08:29 AM V1-PT DECLINES REF TO TOBACCO CESS PRGM [facility] Feb 05, 2009 08:29 AM V1-PT DECLINES TOBACCO CESSATION MEDS [facility] Feb 05, 2009 08:29 AM V1-PT THINKING ABOUT QUIT TOBACCO USE [facility] Aug 22, 2008 09:04 AM QUIT TOBACCO USE IN PAST YEAR [facility] Mar 12, 2008 10:40 AM V1-PT DECLINES REF TO TOBACCO CESS PRGM [facility] Mar 12, 2008 10:40 AM V1-PT DECLINES TOBACCO CESSATION MEDS [facility] Mar 12, 2008 10:40 AM V1-PT NOT INTERESTED IN QUIT TOBACCO USE [facility] Mar 08, 2008 09:37 AM CURRENT SMOKER smokes one pack a day for about 10 years ago. [facility] Encounter Notes: All associated encounter notes This section contains the clinical notes associated to the Encounter. 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 Vet will cb to schedule follow up at later date. 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
--- OUTSIDE RECORDS SUMMARY | 2024-07-05 03:14 | XMS_ITS | Encounter Summary ---
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 Name Role Phone ROAMNA CASTILLO Primary Care Provider Unav ailable Insurance [...] Garcia's Name Patient's Relationship to Policy Garcia [facility] (MEDICAID) [facility] May 14, 2009 [id number] SAMPLE,[facility]CCO [facility]IENT [facility] HUMAN [facility] May 14, 2009 [id number] SAMPLE,ROCCO MOORE PATIENT MEDICAID MEDICAID [facility] [place] Jul 26, 2018 MEDICAI D [id number] SAMPLE,ROCCO MOORE PATIENT MEDICARE (WNR) MEDICARE (M) PART A November 24, 2015 PART A [id number] SAMPLE,ROCCO MOORE PATIENT MEDICARE (WNR) MEDICARE (M) PART B November 24, 2015 PART B [id number] ROCCO QUEZADA PATIENT Selected Encounter This section includes the information on record at [place] for the Encounter. Date/Time Encounter Type Encounter Description Reason Provider Source December 07, 2023 11:40 AM CPAP FULL FACE MASK TELEPHONE/MEDICINE ICD-10-CM G47.39 Other sleep apnea TRISTINROHAN A E Encounter Template Text not used by [place] Assessments - Encounter Diagnoses This section includes the primary and secondary diagnoses documented for the Encounter. Date/Time Primary/Secondary Diagnosis Diagnosis Name Provider Source December 07, 2023 11:40 AM PRIMARY Other sleep apnea ROHAN CROW [place] [facility] [place] [facility] Plan of Treatment: Future Appointments [...] AMBULATORY - PSYCHIATRY [place] [facility] [facility] Jan 17, 2024 03:00 PM AMBULATORY - MEDICINE RI C [facility] [place] [facility] Jan 26, 2024 09:30 AM AMBULATORY - MEDICINE [place] [facility] [place] [place] [facility] Feb 03, 2024 03:00 PM AMBULATORY - MEDICINE RI [facility] [place] [facility] Feb 14, 2024 11:00 AM AMBULATORY - PSYCHIATRY [place] [facility] [place] [facility] Mar 06, 2024 09:00 AM AMBULATORY - MEDICINE [place] [facility] [place] [facility] Apr 03, 2024 11:30 AM AMBULATORY - MEDICINE RI [facility] [place] [facility] Apr 13, 2024 11:00 AM AMBULATORY - PSYCHIATRY [place] [facility] [place] [facility] Apr 13, 2024 02:00 PM AMBULATORY - MEDICINE [place] [facility] [place] [facility] Apr 13, 2024 03:00 PM AMBULATORY - MEDICINE [place] [facility] [place] [facility] May 02, 2024 11:00 AM AMBULATORY - MEDICINE [place] [facility] [place] [facility] May 15, 2024 11:30 AM AMBULATORY - PSYCHIATRY [facility] May 25, 2024 11:30 AM AMBULATORY - MEDICINE [facility] Active, Pending, and Scheduled Orders This section includes a listing of several types of active, pending, and scheduled orders, including clinic medications orders, diagnostic test orders, procedure orders and consult orders; where the start date of the order is 45 days before the date of the Encounter or 45 days after the date of theEncounter. The data comes from all [facility]. Test Date/Time Test Type Test Details Facility Name Jan 17, 2024 12:00 AM Laboratory - Chemistry Order LIPID PANEL, NON FASTING BLOOD (SST-SERUM) [facility] Jan 17, 2024 12:00 AM Laboratory - Chemistry Order BASIC METABOLIC PANEL (non-fasting) BLOOD (SST-SERUM) [facility] Jan 17, 2024 12:00 AM Laboratory - Chemistry Order LIVER FUNCTION BLOOD (SST-SERUM) [facility] Jan 17, 2024 12:00 AM Laboratory - Chemistry Order TSH BLOOD (SST-SERUM) [facility] Jan 17, 2024 12:00 AM Laboratory - Chemistry Order MICROALBUMIN CREATININE RATIO PANEL URINE (RANDOM) [facility] Social History: Smoking Status (Most current) and Tobacco Use (All prior to encounter date) This section includes the most current, and the historical, smoking and tobacco- related health factors from the [place] facility where the Encounter took place. Current Smoking Status This section includes the most current smoking, or tobacco-related health factor, from the [place] facility where the Encounter took place. Date/Time Current Smoking Status Comment [facility] Mar 31, 2023 11:00 AM RI-TOBACCO FORMER USER [facility] Tobacco Use History This section includes a history of the smoking, or tobacco-related health factors, that were collected on or before the date of the Encounter. The data comes from the [place] facility where the Encounter took place. Date/Time Smoking Status/Tobac co Use Comment Facility Mar 31, 2023 11:00 AM RI-TOBACCO QUIT 1 TO < 5 YRS [facility] [place] [facility] Mar 25, 2022 10:30 AM VA-TOBACCO NEVER USED [facility] [place] [facility] Mar 19, 2021 02:00 PM VA-TOBACCO FORMER USER [place] [facility] [place] [facility] Mar 19, 2021 02:00 PM VA-TOBACCO QUIT < 1 YEAR [facility] [place] [place] [facility] Sep 20, 2018 11:24 AM VA-TOBACCO USE DECLINED TO ANSWER [facility] [place] [facility] Oct 21, 2017 08:13 AM QUIT TOBACCO USE IN PAST YEAR [place] [facility] [place] [facility] Dec 30, 2016 08:28 AM QUIT TOBACCO USE 1-7 YEARS AGO [place] [facility] [place] [facility] Jun 04, 2016 08:43 AM QUIT TOBACCO USE 1-7 YEARS AGO [place] [facility] [place] [facility] May 17, 2015 08:45 AM QUIT TOBACCO USE 1-7 YEARS AGO quit 2 years ago. [place] [facility] [facility] Jun 07, 2014 09:25 AM QUIT TOBACCO USE 1-7 YEARS AGO [place] [facility] [place] [facility] November 30, 2013 08:44 AM QUIT TOBACCO USE IN PAST YEAR [facility] [place] [facility] May 22, 2013 10:10 AM QUIT TOBACCO USE IN PAST YEAR [facility] [place] [facility] December 01, 2012 01:54 PM QUIT TOBACCO USE IN PAST YEAR [facility] [place] [place] [facility] Jun 07, 2012 08:16 AM V1-PT DECLINES TOBACCO CESSATION MEDS [facility] [place] [facility] Jun 07, 2012 08:16 AM V1-PT THINKING ABOUT QUIT TOBACCO USE [facility] [place] [facility] Jan 05, 2012 09:00 AM CURRENT SMOKER intermittenly [facility] [place] [facility] Jan 05, 2012 09:00 AM V1-PT DECLINES REF TO TOBACCO CESS PRGM [facility] [place] [facility] Jan 05, 2012 09:00 AM V1-PT DECLINES TOBACCO CESSATION MEDS [facility] [place] [facility] Jan 05, 2012 09:00 AM V1-PT THINKING ABOUT QUIT TOBACCO USE [facility] Feb 17, 2011 09:52 AM V1-PT DECLINES TOBACCO CESSATION MEDS [facility] Feb 17, 2011 09:52 AM V1-PT THINKING ABOUT QUIT TOBACCO USE [facility] Aug 13, 2010 11:31 AM QUIT TOBACCO USE IN PAST YEAR [facility] Feb 19, 2010 01:26 PM QUIT TOBACCO USE IN PAST YEAR [facility] Sep 13, 2009 11:04 AM QUIT TOBACCO USE IN PAST YEAR [facility] Feb 05, 2009 08:29 AM V1-PT DECLINES REF TO TOBACCO CESS PRGM [facility] Feb 05, 2009 08:29 AM V1-PT DECLINES TOBACCO CESSATION MEDS [facility] Feb 05, 2009 08:29 AM V1-PT THINKING ABOUT QUIT TOBACCO USE [facility] Aug 22, 2008 09:04 AM QUIT TOBACCO USE IN PAST YEAR [facility] Mar 12, 2008 10:40 AM V1-PT DECLINES REF TO TOBACCO CESS PRGM [facility] Mar 12, 2008 10:40 AM V1-PT DECLINES TOBACCO CESSATION MEDS [facility] Mar 12, 2008 10:40 AM V1-PT NOT INTERESTED IN QUIT TOBACCO USE [facility] Mar 08, 2008 09:37 AM CURRENT SMOKER smokes one pack a day for about 10 years ago. [facility] Encounter Notes: All associated encounter notes This section contains the clinical notes associated to the Encounter. Date/Time Encounter Note(s) Provider Source December 07, 2023 11:40 AM RESPIRATORY THERAP Y NOTE: LOCAL TITLE: RESPIRATORY THERAPY NOTE(BLANK) STANDARD TITLE: RESPIRATORY THERAPY NOTE DATE OF NOTE: DECEMBER 07, 2023@11:40 ENTRY DATE: DECEMBER 07, 2023@11:40:50 AUTHOR: ROHAN CROW COSIGNER: URGENCY: STATUS: COMPLETED [place], diagnosed with sleep apnea, contacted clinic for a PAP supplies. [place] is compliant and supplies will be ordered from [facility]. She was ordered the AirTouch small full face mask from [facility]. left on the [facility] at [phone] ok to leave a detailed message. Has a rash on her face from her CPAP mask. Requesting a small mask with memory foam. She has tried that from a friend and the rash went away in the past. /divya/ ROHAN CROW, PORTFOLIO ASSISTANT RESPIRATORY THERAPIST Signed: 12/07/2023 11:42 ROHAN CROWFIELD
--- OUTSIDE RECORDS SUMMARY | 2024-07-05 03:14 | XMS_ITS ---
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 Address [address] [place] [id number] Care Team Providers Care Column Precaster Name Role Phone ROMANA CASTILLO Primary Care [...] Garcia's Name Patient's Relationship to Policy Garcia [facility] (MEDICAID) [facility] May 14, 2009 [id number] SAMPLE,ROCCO MOORE PATIENT [facility] MEDICAID [facility] May 14, 2009 [id number] SAMPLE,ROCCO MOORE PATIENT MEDICAID MEDICAID [facility] Jul 26, 2018 MEDICAI D [id number] SAMPLE,ROCCO MOORE PATIENT MEDICARE (WNR) MEDICARE (M) PART A November 24, 2015 PART A [id number] SAMPLE,ROCCO MOORE PATIENT MEDICARE (WNR) MEDICARE (M) PART B November 24, 2015 PART B [id number] ROCCO QUEZADA PATIENT Selected Encounter This section includes the information on record at [place] for the Encounter. Date/Time Encounter Type Encounter Description Reason Pro vider Source Dec 27, 2023 01:30 PM Outpatient Encounter [facility] Encounter Template Text not used by [place] Plan of Treatment: Future Appointments (+ 6 months) and Future Tests (+/- 45 days) The Plan of Treatment section includes future care activities for the patient from all [place] treatmentfacilities. This section includes future appointments and future orders which are active, pending or scheduled. Future Appointments This section includes appointments that were scheduled to occur 6 months from the date of the Encounter, up to a maximum of 20 appointments. The data comes from all [place] treatment facilities. Appointment Date/Time Appointment Type Appointme nt Facility Name Jan 03, 2024 11:00 AM AMBULATORY - [place]IATRY [facility] [place] [facility] Jan 17, 2024 03:00 PM AMBULATORY - MEDICINE [facility] [place] [facility] Jan 26, 2024 09:30 AM AMBULATORY - MEDICINE [facility] [place] [facility] Feb 03, 2024 03:00 PM AMBULATORY - MEDICINE [facility] [place] [facility] Feb 14, 2024 11:00 AM AMBULATORY - PSYCHIATRY [facility] [place] [facility] Mar 06, 2024 09:00 AM AMBULATORY - MEDICINE [facility] [place] [facility] Apr 03, 2024 11:30 AM AMBULATORY - MEDICINE [facility] [place] [facility] Apr 13, 2024 11:00 AM AMBULATORY - PSYCHIATRY [facility] [place] [facility] Apr 13, 2024 02:00 PM AMBULATORY - MEDICINE [facility] [place] [facility] Apr 13, 2024 03:00 PM AMBULATORY - MEDICINE [facility] [place] [facility] May 02, 2024 11:00 AM AMBULATORY - MEDICINE [facility] [place] [facility] May 15, 2024 11:30 AM AMBULATORY - PSYCHIATRY [facility] [facility] May 25, 2024 11:30 AM AMBULATORY - [place]ICINE [place] [facility] Active, Pending, and Scheduled Orders This section includes a listing of several types of active, pending, and scheduled orders, including clinic medications orders, diagnostic test orders, procedure orders and consult orders; where the start date of the order is 45 days before the date of the Encounter or 45 days after the date of theEncounter. The data comes from all [place] treatment [facility]. Test Date/Time Test Type Test Details Facility Name Jan 17, 2024 12:00 AM Laboratory - Chemistry Order BASIC METABOLIC PANEL (non-fasting) BLOOD (SST-SERUM) [facility] Jan 17, 2024 12:00 AM Laboratory - Chemistry Order LIPID PANEL, NON FASTING BLOOD (SST-SERUM) [facility] Jan 17, 2024 12:00 AM Laboratory - Chemistry Order LIVER FUNCTION BLOOD (SST-SERUM) [facility] Jan 17, 2024 12:00 AM Laboratory - Chemistry Order MICROALBUMIN CREATININE RATIO PANEL URINE (RANDOM) [facility] Jan 17, 2024 12:00 AM Laboratory - Chemistry Order TSH BLOOD (SST-SERUM) [facility] Social History: Smoking Status (Most current) and Tobacco Use (All prior to encounter date) This section includes the most current, and the historical, smoking and tobacco- related health factors from the [place] facility where the Encounter took place. Current Smoking Status This section includes the most current smoking, or tobacco-related health factor, from the [place] facility where the Encounter took place. Date/Time Current Smoking Status Comment Rosana humphrey Mar 31, 2023 11:00 AM VA-TOBACCO FORMER USER [facility] Tobacco Use History This section includes a history of the smoking, or tobacco-related health factors, that were collected on or before the date of the Encounter. The data comes from the [place] facility where the Encounter took place. Date/Time Smoking Status/Tobac co Use Comment Facility Mar 31, 2023 11:00 AM [place]-TO[place]ACCO QUIT 1 TO < 5 YRS [facility] Mar 25, 2022 10:30 AM VA-TOBACCO NEVER USED [facility] Mar 19, 2021 02:00 PM VA-TOBACCO FORMER USER [facility] Mar 19, 2021 02:00 PM VA-TOBACCO QUIT < 1 YEAR [facility] [place] [facility] Sep 20, 2018 11:24 AM VA-TOBACCO USE DECLINED TO ANSWER [place] CNTR [place] [facility] Oct 21, 2017 08:13 AM QUIT TOBACCO USE IN PAST YEAR [place] [facility] [facility] Dec 30, 2016 08:28 AM QUIT TOBACCO USE 1-7 YEARS AGO [place] [facility] [facility] Jun 04, 2016 08:43 AM QUIT TOBACCO USE 1-7 YEARS AGO [place] [facility] May 17, 2015 08:45 AM QUIT TOBACCO USE 1-7 YEARS AGO quit 2 years ago. [place] [facility] [facility] Jun 07, 2014 09:25 AM QUIT TOBACCO USE 1-7 YEARS AGO [place] [facility] November 30, 2013 08:44 AM QUIT TOBACCO USE IN PAST YEAR [facility] [place] [facility] May 22, 2013 10:10 AM QUIT TOBACCO USE IN PAST YEAR [place] [facility] December 01, 2012 01:54 PM QUIT TOBACCO USE IN PAST YEAR [facility] [place] [place] [facility] Jun 07, 2012 08:16 AM V1-PT DECLINES TOBACCO CESSATION MEDS [facility] [place] [facility] Jun 07, 2012 08:16 AM V1-PT THINKING ABOUT QUIT TOBACCO USE [facility] [place] [place] [facility] Jan 05, 2012 09:00 AM CURRENT SMOKER intermittenly [facility] [place] [place] [facility] Jan 05, 2012 09:00 AM V1-PT DECLINES REF TO TOBACCO CESS PRGM [facility] [place] [facility] Jan 05, 2012 09:00 AM V1-PT DECLINES TOBACCO CESSATION MEDS [facility] [place] [facility] Jan 05, 2012 09:00 AM V1-PT THINKING ABOUT QUIT TOBACCO USE [facility] [place] [facility] Feb 17, 2011 09:52 AM V1-PT DECLINES TOBACCO CESSATION MEDS [facility] [place] [place] [facility] Feb 17, 2011 09:52 AM V1-PT THINKING ABOUT QUIT TOBACCO USE [facility] [place] [facility] Aug 13, 2010 11:31 AM QUIT TOBACCO USE IN PAST YEAR [facility] Feb 19, 2010 01:26 PM QUIT TOBACCO USE IN PAST YEAR [facility] LUZ MARIAEvi [facility] Sep 13, 2009 11:04 AM QUIT TOBACCO USE IN PAST YEAR [facility] LUZ MARIAEvi [facility] Feb 05, 2009 08:29 AM V1-PT DECLINES REF TO TOBACCO CESS [facility] Feb 05, 2009 08:29 AM V1-PT DECLINES TOBACCO CESSATION MEDS [facility] LUZ MARIAEvi [facility] Feb 05, 2009 08:29 AM V1-PT THINKING ABOUT QUIT TOBACCO USE [facility] Aug 22, 2008 09:04 AM QUIT TOBACCO USE IN PAST YEAR [facility] Mar 12, 2008 10:40 AM V1-PT DECLINES REF TO TOBACCO CESS PR[facility] Mar 12, 2008 10:40 AM V1-PT DECLINES TOBACCO CESSATION MEDS [facility] Mar 12, 2008 10:40 AM V1-PT NOT INTERESTED IN QUIT TOBACCO USE [facility] Mar 08, 2008 09:37 AM CURRENT SMOKER smokes one pack a day for about 10 years ago. [facility] Encounter Notes: All associated encounter notes This section contains the clinical notes associated to the Encounter. Date/Time Encounter Note(s) Provider Source December 16, 2023 10:21 AM ACCOUNTING OF DISCLOSURES NOTE: LOCAL TITLE: [facility] PRESCRIPTION DRUG MONITORING PROGRAM STANDARD TITLE: ACCOUNTING OF DISCLOSURES NOTE DATE OF NOTE: DECEMBER 16, 2023@10:21:33 ENTRY DATE: DECEMBER 16, 2023@10:21:33 AUTHOR: MATEO SCOTT EXP COSIGNER: URGENCY: STATUS: COMPLETED This PDMP query was submitted by Mateo Scott MD, MD. The clinical justification for this PDMP query is to review controlled substances prescribed outside of the [facility], and any additional information that may become available, as an important component of standard clinical care, and in accordance with [facility] policy. Patient information was shared with the PDMP Appriss [place]. Prescription(s) filled outside the [facility] in the last 90 days are noted. However, they do not raise significant safety concerns and do not influence the treatment plan at this time. Clonazepam /es/ MATEO SCOTT JR, MD STAFF PSYCHIATRIST Signed: 12/16/2023 10:21 MATEO SCOTT MD [facility]
--- OUTSIDE RECORDS SUMMARY | 2024-07-05 03:15 | XMS_ITS | Encounter Summary ---
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 Organization [place] Address [address] [place] [address] Care Team Providers Care Supervisor Plate Forming Name Role Phone ROMANA CASTILLO Primary Care [...] Garcia's Name Patient's Relationship to Policy Garcia [facility] (MEDICAID) MEDICAID [facility] HUMAN [facility] May 14, 2009 [id number] SAMPLE,ROCCO MOORE PATIENT [facility] May 14, 2009 [id number] SAMPLE,ROCCO MOORE PATIENT MEDICAID MEDICAID [facility] [place] Jul 26, 2018 MEDICAI D [id number] SAMPLE,ROCCO MOORE PATIENT MEDICARE (WNR) MEDICARE (M) PART A November 24, 2015 PART A [id number] SAMPLE,ROCCO MOORE PATIENT MEDICARE (WNR) MEDICARE (M) PART B November 24, 2015 PART B [id number] SAMPLE,ROCCO MOORE PATIENT Selected Encounter This section includes the information on record at [place] for the Encounter. Date/Time Encounter Type Encounter Description Reason Pro vider Source IHE Encounter Template Text not used by VA
--- OUTSIDE RECORDS SUMMARY | 2024-07-05 03:15 | XMS_ITS | Encounter Summary ---
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 Address [address] [place] [address] Care Team Providers Care Cattle Farmer Name Role Phone ROMANA CASTILLO Primary Care [...] Policy Garcia [facility] (MEDICAID) [facility]ICAID [facility] May 14, 2009 [id number] SAMPLE,ROCCO MOORE PATIENT [facility] MEDICAID [facility] May 14, 2009 [id number] SAMPLE,ROCCO MOORE PATIENT MEDICAID MEDICAID [facility] [place] Jul 26, 2018 MEDICAI D [id number] SAMPLE,ROCCO MOORE PATIENT MEDICARE (WNR) MEDICARE (M) PART A November 24, 2015 PART A [id number] SAMPLE,ROCCO MOORE PATIENT MEDICARE (WNR) MEDICARE (M) PART B November 24, 2015 PART B [id number] ROCCO QUEZADA PATIENT Selected Encounter This section includes the information on record at [place] for the Encounter. Date/Time Encounter Type Encounter Description Reason Pro vider Source Jan 03, 2024 10:42 AM Outpatient Encounter PAIN CLINIC [facility] Encounter Template Text not used by [place] Plan of Treatment: Future Appointments (+ 6 months) and Future Tests (+/- 45 days) The Plan of Treatment section includes future care activities for the patient from all [place] [facility] This section includes future appointments and future orders which are active, pending or scheduled. Future Appointments This section includes appointments that were scheduled to occur 6 months from the date of the Encounter, up to a maximum of 20 appointments. The data comes from all [place] treatment facilities. Appointment Date/Time Appointment Type Appointme nt Facility Name Jan 17, 2024 03:00 PM AMBULATORY - MEDICINE [place] [facility] Jan 26, 2024 09:30 AM AMBULATORY - MEDICINE [place] [facility] Feb 03, 2024 03:00 PM AMBULATORY - MEDICINE [place] [facility] Feb 14, 2024 11:00 AM AMBULATORY - PSYCHIATRY [facility] [place] [facility] Mar 06, 2024 09:00 AM AMBULATORY - MEDICINE [place] [facility] Apr 03, 2024 11:30 AM AMBULATORY - MEDICINE [place] [facility] Apr 13, 2024 11:00 AM AMBULATORY - PSYCHIATRY [facility] [place] [facility] Apr 13, 2024 02:00 PM AMBULATORY - MEDICINE [place] [facility] Apr 13, 2024 03:00 PM AMBULATORY - MEDICINE [place] [facility] May 02, 2024 11:00 AM AMBULATORY - MEDICINE [place] [facility] May 15, 2024 11:30 AM AMBULATORY - PSYCHIATRY [place] [facility] [place] [facility] May 25, 2024 11:30 AM AMBULATORY - MEDICINE [place] [facility] Active, Pending, and Scheduled Orders This [...] Order LIPID PANEL, NON FASTING BLOOD (SST-SERUM) [facility] Jan 17, 2024 12:00 AM Laboratory - Chemistry Order BASIC METABOLIC PANEL (non-fasting) BLOOD (SST-SERUM) [facility] Jan 17, 2024 12:00 AM Laboratory - Chemistry Order LIVER FUNCTION BLOOD (SST-SERUM) [facility] Jan 17, 2024 12:00 AM Laboratory - Chemistry Order TSH BLOOD (SST-SERUM) [facility] Jan 17, 2024 12:00 AM Laboratory - Chemistry Order MICROALBUMIN CREATININE RATIO PANEL URINE (RANDOM) [facility] Social History: Smoking Status (Most current) and [...] place. Date/Time Current Smoking Status Comment Rosana [facility] Mar 31, 2023 11:00 AM [facility]-TOBACCO [facility] Tobacco Use History This section includes a history of the smoking, or tobacco-related health factors, that were collected on or before the date of the Encounter. The data comes from the [place] facility where the Encounter took place. Date/Time Smoking Status/Tobac co Use Comment Facility Mar 31, 2023 11:00 AM VA-TOBACCO QUIT 1 TO < 5 YRS [facility] Mar 25, 2022 10:30 AM VA-TOBACCO NEVER USED [facility] Mar 19, 2021 02:00 PM VA-TOBACCO FORMER USER [place] CNTR WSTR[facility] Mar 19, 2021 02:00 PM VA-TOBACCO QUIT < [facility] Sep 20, 2018 11:24 AM VA-TOBACCO USE DECLINED TO [facility] [place] [facility] Oct 21, 2017 08:13 AM QUIT TOBACCO USE IN PAST YEAR [place] CNTR [place] [facility] Dec 30, 2016 08:28 AM QUIT TOBACCO USE 1-7 YEARS AGO [place] [facility] Jun 04, 2016 08:43 AM QUIT TOBACCO USE 1-7 YEARS AGO [place] [facility] May 17, 2015 08:45 AM QUIT TOBACCO USE 1-7 YEARS AGO quit 2 years ago. [place] [facility] Jun 07, 2014 09:25 AM QUIT TOBACCO USE 1-7 YEARS AGO [place] [facility] November 30, 2013 08:44 AM QUIT TOBACCO USE IN PAST YEAR [place] CNTR [place] [facility] May 22, 2013 10:10 AM QUIT TOBACCO USE IN PAST [facility] [place] [facility] December 01, 2012 01:54 PM QUIT TOBACCO USE IN PAST YEAR [facility] LU[facility]RN [place] [facility] Jun 07, 2012 08:16 AM V1-PT DECLINES TOBACCO CESSATION MEDS [facility] LUZ MAR[facility]ATRN [place] [facility] Jun 07, 2012 08:16 AM V1-PT THINKING ABOUT QUIT TOBACCO USE [facility] [place] [facility] Jan 05, 2012 09:00 AM CURRENT SMOKER intermittenly [facility] LUZ [facility]ATRN [place] [facility] Jan 05, 2012 09:00 AM V1-PT DECLINES REF TO TOBACCO CESS [facility] [place] [place] [facility] Jan 05, 2012 09:00 AM V1-PT DECLINES TOBACCO CESSATION [facility] [place] [facility] Jan 05, 2012 09:00 AM V1-PT THINKING ABOUT QUIT [facility]BACCO [facility] [place] [facility] Feb 17, 2011 09:52 AM V1-PT DECLINES TOBACCO CESSATION [facility] [place] [facility] Feb 17, 2011 09:52 AM V1-PT THINKING ABOUT QUIT [facility]ACCO [facility] [place] [facility] Aug 13, 2010 11:31 AM QUIT TOBACCO USE IN PAST YE[facility] [place] [facility] Feb 19, 2010 01:26 PM QUIT TOBACCO USE IN PAST YEAR [facility] Sep 13, 2009 11:04 AM QUIT TOBACCO USE IN PAST YEAR [facility] Feb 05, 2009 08:29 AM V1-PT DECLINES REF TO TOBACCO CESS [facility] Feb 05, 2009 08:29 AM V1-PT DECLINES TOBACCO CESSATION MEDS [facility] Feb 05, 2009 08:29 AM V1-PT THINKING ABOUT QUIT TOBACCO USE [facility] Aug 22, 2008 09:04 AM QUIT TOBACCO USE IN PAST YEAR [facility] Mar 12, 2008 10:40 AM V1-PT DECLINES REF TO TOBACCO CESS PRGM [facility] Mar 12, 2008 10:40 AM V1-PT DECLINES TOBACCO CESSATION MEDS [facility] Mar 12, 2008 10:40 AM V1-PT NOT INTERESTED IN QUIT TOBACCO USE [facility] Mar 08, 2008 09:37 AM CURRENT SMOKER smokes one pack a day for about 10 years ago. [facility] Encounter Notes: All associated encounter notes This section contains the clinical notes associated to the Encounter. Date/Time Encounter Note(s) Provider Source Jan 04, 2024 09:15 AM ADDENDUM: LOCAL TITLE: Addendum STANDARD TITLE: ADDENDUM DATE OF NOTE: JAN 04, 2024@09:15:14 ENTRY DATE: JAN 04, 2024@09:15:15 AUTHOR: WENDY MADSEN COSIGNER: URGENCY: STATUS: COMPLETED oxycodone will be available for pick remover on due date of 01/04. /divya/ Wendy Madsen MD STAFF PHYSICIAN Signed: 01/04/2024 09:15 Receipt Acknowledged By: 01/04/2024 09:26 /divya/ BEULAH LOPEZ ADVANCED BUTADIENE CONVERTOR OPERATOR ====== --- Original Document --- 01/03/24 TELEPHONE NOTE/SPECIALTY CLINIC: scheduled VVC for 01/26/[address] Madsen. is asking for refill of her meds please advise /divya/ BEULAH LOPEZ ADVANCED BUTADIENE CONVERTOR OPERATOR Signed: 01/03/2024 10:42 Receipt Acknowledged By: 01/04/2024 09:13 /divya/ Wendy Madsen MD STAFF PHYSICIAN * AWAITING SIGNATURE * ERIC DOUGLAS * AWAITING SIGNATURE * URBANO FOSTER 01/04/2024 ADDENDUM STATUS: COMPLETED Oxycodone ordered for window pick remover. If she prefers mail delivery she should contact pharmacy. /divya/ Wendy Madsen MD STAFF PHYSICIAN Signed: 01/04/2024 09:14 Receipt Acknowledged By: * AWAITING SIGNATURE * BEULAH LOPEZ WILLIAM S [place] [facility] Jan 04, 2024 09:13 AM ADDENDUM: LOCAL TITLE: Addendum STANDARD TITLE: ADDENDUM DATE OF NOTE: JAN 04, 2024@09:13:50 ENTRY DATE: JAN 04, 2024@09:13:51 AUTHOR: WENDY MADSEN COSIGNER: URGENCY: STATUS: COMPLETED Oxycodone ordered for window pick remover. If she prefers mail delivery she should contact pharmacy. /divya/ Wendy Madsen MD STAFF PHYSICIAN Signed: 01/04/2024 09:14 Receipt Acknowledged By: 01/04/2024 09:27 /isabella LOPEZ ADVANCED BUTADIENE CONVERTOR OPERATOR ====== --- Original Document --- 01/03/24 TELEPHONE NOTE/SPECIALTY CLINIC: scheduled VVC for 01/26/[address] Madsen. is asking for refill of her meds please advise /divya/ BEULAH LOPEZ ADVANCED BUTADIENE CONVERTOR OPERATOR Signed: 01/03/2024 10:42 Receipt Acknowledged By: 01/04/2024 09:13 /divya/ Wendy Madsen MD STAFF PHYSICIAN * AWAITING SIGNATURE * ERIC DOUGLAS * AWAITING SIGNATURE * URBANO FOSTER 01/04/2024 ADDENDUM STATUS: COMPLETED oxycodone will be available for pick remover on due date of 01/04. /divya/ Wendy Madsen MD STAFF PHYSICIAN Signed: 01/04/2024 09:15 Receipt Acknowledged By: 01/04/2024 09:26 /isabella LOPEZ ADVANCED BUTADIENE CONVERTOR OPERATOR 01/04/2024 ADDENDUM STATUS: COMPLETED Talked with , she is aware med ready for pick remover 01/05/2024 /isabella LOPEZ ADVANCED BUTADIENE CONVERTOR OPERATOR Signed: 01/04/2024 09:27 WENDY MADSEN [place] [place] [facility] Jan 03, 2024 10:42 AM TELEPHONE ENCOUNTE R NOTE: LOCAL TITLE: TELEPHONE NOTE/SPECIALTY CLINIC STANDARD TITLE: TELEPHONE ENCOUNTER NOTE DATE OF NOTE: JAN 03, 2024@10:42 ENTRY DATE: JAN 03, 2024@10:42:17 AUTHOR: BEULAH LOPEZ EXP COSIGNER: URGENCY: STATUS: COMPLETED TELEPHONE NOTE/SPECIALTY CLINIC Has ADDENDA scheduled VVC for 01/26/[address] Madsen. Orem is asking for refill of her meds please advise /isabella LOPEZ ADVANCED BUTADIENE CONVERTOR OPERATOR Signed: 01/03/2024 10:42 Receipt Acknowledged By: 01/04/2024 09:13 /divya/ Wendy Madsen MD STAFF PHYSICIAN 01/04/2024 13:02 /divya/ ERIC DOUGLAS CLINICAL PHARMACIST PRACTITIONER, PAIN 01/06/2024 14:08 /divya/ URBAON FOSTER, PHARM.D CLINICAL PHARMACIST PRACTITIONER 01/04/2024 ADDENDUM STATUS: COMPLETED Oxycodone ordered for window pick remover. If she prefers mail delivery she should contact pharmacy. /divya/ Wendy Madsen MD STAFF PHYSICIAN Signed: 01/04/2024 09:14 Receipt Acknowledged By: 01/04/2024 09:27 /isabella LOPEZ ADVANCED BUTADIENE CONVERTOR OPERATOR 01/04/2024 ADDENDUM STATUS: COMPLETED oxycodone will be available for pick remover on due date of 01/04. /es/ Wendy Madsen MD STAFF PHYSICIAN Signed: 01/04/2024 09:15 Receipt Acknowledged By: 01/04/2024 09:26 /divya/ BEULAH LOPEZ ADVANCED BUTADIENE CONVERTOR OPERATOR 01/04/2024 ADDENDUM STATUS: COMPLETED Talked with , she is aware med ready for pick remover 01/05/2024 /divya/ BEULAH LOPEZ ADVANCED BUTADIENE CONVERTOR OPERATOR Signed: 01/04/2024 09:27 BEULAH LOPEZ OR [facility]
--- OUTSIDE RECORDS SUMMARY | 2024-07-05 03:15 | XMS_ITS ---
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 Organization [facility] [place] Address [address] [place] [id number] Care Team Providers Care Reverberatory Skimmer Name Role Phone ROMANA CASTILLO Primary Care [...] Garcia's Name Patient's Relationship to Policy Garcia [facility] (MEDICAID) [facility] May 14, 2009 [id number] SAMPLE,ROCCO MOORE PATIENT [facility] MEDICAID [facility] May 14, 2009 [id number] SAMPLE,ROCCO MOORE PATIENT MEDICAID MEDICAID [facility] Jul 26, 2018 MEDICAI D [id number] SAMPLE,ROCCO MOORE PATIENT MEDICARE (WNR) MEDICARE (M) PART A November 24, 2015 PART A [id number] SAMPLE,ROCCO MOORE PATIENT MEDICARE (WNR) MEDICARE (M) PART B November 24, 2015 PART B [id number] ROCCO QUEZADA PATIENT Selected Encounter This section includes the information on record at [place] for the Encounter. Date/Time Encounter Type Encounter Description Reason Pro vider Source December 22, 2023 11:11 AM Outpatient Encounter [facility] Encounter Template Text not used by [place] [...] AMBULATORY - PSYCHIATRY [facility] [place] [facility] Jan 17, 2024 03:00 PM AMBULATORY - MEDICINE [facility] [place] [place] [facility] Jan 26, 2024 09:30 AM AMBULATORY - MEDICINE [facility] [place] [facility] Feb 03, 2024 03:00 PM AMBULATORY - MEDICINE [facility] [place] [facility] Feb 14, 2024 11:00 AM AMBULATORY - PSYCHIATRY [facility] [place] [facility] Mar 06, 2024 09:00 AM AMBULATORY - MEDICINE [facility] [place] [facility] Apr 03, 2024 11:30 AM AMBULATORY - MEDICINE [facility] [place] [facility] Apr 13, 2024 11:00 AM AMBULATORY - PSYCHIATRY [facility] [place] [facility] Apr 13, 2024 02:00 PM AMBULATORY - MEDICINE [facility] [place] [facility] Apr 13, 2024 03:00 PM AMBULATORY - MEDICINE [facility] [place] [place] [facility] May 02, 2024 11:00 AM AMBULATORY - MEDICINE [facility] [place] [place] [facility] May 15, 2024 11:30 AM AMBULATORY - PSYCHIATRY [facility] [place] [facility] May 25, 2024 11:30 AM AMBULATORY - MEDICINE [place] [facility] [place] [facility] Active, Pending, and Scheduled Orders This section includes a listing of several types of active, pending, and scheduled orders, including clinic medications orders, diagnostic test orders, procedure orders and consult orders; where the start date of the order is 45 days before the date of the Encounter or 45 days after the date of theEncounter. The data comes from all [facility] [address] Test Date/Time Test Type Test Details Facility Name Jan 17, 2024 12:00 AM Laboratory - Chemistry Order LIPID PANEL, NON FASTING BLOOD (SST-SERUM) [facility] Jan 17, 2024 12:00 AM Laboratory - Chemistry Order BASIC METABOLIC PANEL (non-fasting) BLOOD (SST-SERUM) [facility] Jan 17, 2024 12:00 AM Laboratory - Chemistry Order LIVER FUNCTION BLOOD (SST-SERUM) [facility] Jan 17, 2024 12:00 AM Laboratory - Chemistry Order TSH BLOOD (SST-SERUM) [facility] Jan 17, 2024 12:00 AM Laboratory - Chemistry Order MICROALBUMIN CREATININE RATIO PANEL URINE (RANDOM) [facility] Social History: Smoking Status (Most current) [...] Comment Facility Mar 31, 2023 11:00 AM [place]-TOBACCO QUIT 1 TO < 5 YRS [facility] Mar 25, 2022 10:30 AM VA-TOBACCO NEVER USED [facility] Mar 19, 2021 02:00 PM VA-TOBACCO FORMER USER [facility] Mar 19, 2021 02:00 PM VA-TOBACCO QUIT < [facility] [place] [place] [facility] Sep 20, 2018 11:24 AM VA-TOBACCO USE DECLINED TO ANSWER [place] [facility] [place] [facility] Oct 21, 2017 08:13 AM QUIT TOBACCO USE IN PAST YEAR [place] [facility] [place] [facility] Dec 30, 2016 08:28 AM QUIT TOBACCO USE 1-7 YEARS AGO [place] [facility] [place] [facility] Jun 04, 2016 08:43 AM QUIT TOBACCO USE 1-7 YEARS AGO [place] [facility] [place] [facility] May 17, 2015 08:45 AM QUIT TOBACCO USE 1-7 YEARS AGO quit 2 years ago. [place] [facility] [place] [facility] Jun 07, 2014 09:25 AM QUIT TOBACCO USE 1-7 YEARS AGO [place] [facility] November 30, 2013 08:44 AM QUIT TOBACCO USE IN PAST [facility]AR [facility] [place] [facility] May 22, 2013 10:10 AM QUIT TOBACCO USE IN PAST YEAR [place] [facility] [facility] [place] [facility] December 01, 2012 01:54 PM QUIT TOBACCO USE IN PAST YEAR [facility] [place] [facility] Jun 07, 2012 08:16 AM V1-PT DECLINES TOBACCO CESSATION MEDS [facility] [place] [facility] Jun 07, 2012 08:16 AM V1-PT THINKING ABOUT QUIT TOBACCO USE [facility] [place] [facility] Jan 05, 2012 09:00 AM CURRENT SMOKER intermittenly [facility] [place] [facility] Jan 05, 2012 09:00 AM V1-PT DECLINES REF TO TOBACCO CESS PRGM [facility] [place] [facility] Jan 05, 2012 09:00 AM V1-PT DECLINES TOBACCO CESSATION MEDS [facility] [place] [facility] Jan 05, 2012 09:00 AM V1-PT THINKING ABOUT QUIT TOBACCO USE [facility] [place] [place] [facility] Feb 17, 2011 09:52 AM V1-PT DECLINES TOBACCO CESSATION [facility] [place] [facility] Feb 17, 2011 09:52 AM V1-PT THINKING ABOUT QUIT [facility]BACCO [facility] [place] [facility] Aug 13, 2010 11:31 AM QUIT [facility]AC[facility] Feb 19, 2010 01:26 PM QUIT TOBACCO USE IN PAST YEAR [facility] Sep 13, 2009 11:04 AM QUIT TOBACCO USE IN PAST YEAR [facility] Feb 05, 2009 08:29 AM V1-PT DECLINES REF TO TOBACCO CESS PR[facility] Feb 05, 2009 08:29 AM V1-PT DECLINES TOBACCO [facility] Feb 05, 2009 08:29 AM V1-PT THINKING ABOUT QUIT TOBACCO USE [facility] Aug 22, 2008 09:04 AM QUIT TOBACCO USE IN PAST YEAR [facility] Mar 12, 2008 10:40 AM V1-PT DE[facility]INES [facility] Mar 12, 2008 10:40 AM V1-PT [...] Encounter. Date/Time Encounter Note(s) Provider Source December 22, 2023 11:11 AM ADMINISTRATIVE NOTE: LOCAL TITLE: ADMINISTRATIVE NOTE STANDARD TITLE: ADMINISTRATIVE NOTE DATE OF NOTE: DECEMBER 22, 2023@11:11 ENTRY DATE: DECEMBER 22, 2023@11:11:13 AUTHOR: LETI HILARIO EXP COSIGNER: URGENCY: STATUS: COMPLETED ADMINISTRATIVE NOTE Has ADDENDA TRACY received a voice mail message from [facility] looking to move her appointment with provider to earlier on Wednesday12/27/2023 or early in the am on Wednesday12/29/2023. JASONA returned the call and left a message for [facility] that, unfortunatly, there were no earlier appointments availabe currently with provider for those time frames. AMSA left the message that could call back to see if there were any cancellations in the time frames that work better for her, at a later date. /divya/ LETI HILARIO ADVANCED ELECTRICAL INTEGRATOR Signed: 12/22/2023 16:15 Receipt Acknowledged By: 12/23/2023 10:16 /divya/ KOURTNEY BAILEY ADVANCED ELECTRICAL INTEGRATOR 12/23/2023 ADDENDUM STATUS: COMPLETED Slumber Room Attendant reached [facility] and reschyoseph appt., for 0930 hrs same day. /divya/ KOURTNEY BAILEY ADVANCED ELECTRICAL INTEGRATOR Signed: 12/23/2023 11:11 [facility]
--- OUTSIDE RECORDS SUMMARY | 2024-07-05 03:17 | XMS_ITS | Encounter Summary ---
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 [facility] [place] Address [address] [place] [address] Care Team Providers Care Diamond Powder Mixer Name Role Phone ROMANA CASTILLO Primary Care [...] Garcia's Name Patient's Relationship to Policy Garcia [facility] (MEDICAID) [facility] May 14, 2009 [id number] SAMPLE,ROCCO MOORE PATIENT [facility] MEDICAID [facility] May 14, 2009 [id number] SAMPLE,ROCCO MOORE PATIENT MEDICAID MEDICAID [facility] Jul 26, 2018 MEDICAI D [id number] SAMPLE,ROCCO MOORE PATIENT MEDICARE (WNR) MEDICARE ([place]) PART A November 24, 2015 PART A [id number] [phone] [id number] SAMPLE,ROCCO MOORE PATIENT MEDICARE (WNR) MEDICARE (M) PART B November 24, 2015 PART B [id number] [phone] [id number] ROCCO QUEZADA PATIENT Selected Encounter This section includes the information on record at [place] for the Encounter. Date/Time Encounter Type Encounter Description Reason Pro vider Source Jul 13, 2023 12:00 AM Outpatient Encounter EVENT (HISTORICAL) IHE Encounter Template Text not used by [place] Plan of Treatment: Future Appointments (+ 6 months) and Future Tests (+/- 45 days) The Plan of Treatment section includes future care activities for the patient from all [place] treatmentfaunc health rexities. This section includes future appointments and future orders which are active, pending or scheduled. Future Appointments This section includes appointments that were scheduled to occur 6 months from the date of the Encounter, up to a maximum of 20 appointments. The data comes from all [place] treatment facilities. Appointment Date/Time Appointment Type Appointme nt Facility Name Jul 15, 2023 08:00 AM AMBULATORY - MEDICINE [place] [facility] Aug 05, 2023 04:00 PM AMBULATORY - PSYCHIATRY [place] [facility] [place] [facility] Aug 18, 2023 12:00 PM AMBULATORY - MEDICINE [place] [facility] [place] [place] [facility] Sep 08, 2023 01:00 PM AMBULATORY - MEDICINE [place] [facility] [place] [place] [facility] Sep 08, 2023 01:30 PM AMBULATORY - MEDICINE [place] C [facility] [place] [facility] Oct 06, 2023 09:00 AM AMBULATORY - MEDICINE [place] [facility] [place] [facility] Oct 07, 2023 01:00 PM AMBULATORY - PSYCHIATRY [place] [facility] [place] [facility] Oct 25, 2023 11:00 AM AMBULATORY - MEDICINE [place] [facility] [place] [facility] Nov 09, 2023 09:00 AM AMBULATORY - MEDICINE [place] [facility] [place] [facility] Nov 17, 2023 09:30 AM AMBULATORY - MEDICINE [place] [facility] [place] [facility] Jan 03, 2024 11:00 AM AMBULATORY - PSYCHIATRY [place] [facility] [place] [facility] Social History: Smoking Status (Most current) and Tobacco Use (All prior to encounter date) This section includes the most current, and the historical, smoking and tobacco- related health factors from the [place] facility where the Encounter took place. Current Smoking Status This section includes the most current smoking, or tobacco-related health factor, from the [place] facility where the Encounter took place. Date/Time Current Smoking Status Comment Rosana it Mar 31, 2023 11:00 AM VA-TO[facility]ACCO [facility] Tobacco Use History This section includes a history of the smoking, or tobacco-related health factors, that were collected on or before the date of the Encounter. The data comes from the [place] facility where the Encounter took place. Date/Time Smoking Status/Tobac co Use Comment Facility Mar 31, 2023 11:00 AM VA-TOBACCO QUIT 1 TO < 5 YRS [place] [facility] [place] [facility] Mar 25, 2022 10:30 AM VA-TOBACCO NEVER USED [place] [facility]TR [place] [facility] Mar 19, 2021 02:00 PM VA-TOBACCO FORMER USER NM CNT [place] [facility] Mar 19, 2021 02:00 PM VA-TOBACCO QUIT < 1 YEAR [facility] Sep 20, 2018 11:24 AM VA-TOBACCO [facility] [place] [facility] Oct 21, 2017 08:13 AM QUIT TOBACCO USE IN PAST YEAR [place] [facility] [place] [facility] Dec 30, 2016 08:28 AM QUIT TOBACCO USE 1-7 YEARS AGO [place] [facility] [place] [facility] Jun 04, 2016 08:43 AM QUIT TOBACCO USE 1-7 YEARS AGO [place] CNT [place] [facility] May 17, 2015 08:45 AM QUIT TOBACCO USE 1-7 YEARS AGO quit 2 years ago. [place] [facility] Jun 07, 2014 09:25 AM QUIT TOBACCO USE 1-7 YEARS AGO [place] [facility] [place] [facility] November 30, 2013 08:44 AM QUIT TOBACCO USE IN PAST YEAR [place] [facility] [place] [facility] May 22, 2013 10:10 AM QUIT TOBACCO USE IN PAST YEAR NM CNT [place] [facility] December 01, 2012 01:54 PM QUIT TOBACCO USE IN PAST YEAR NM CNT [place] [facility] Jun 07, 2012 08:16 AM V1-PT DECLINES TOBACCO CESSATION MEDS [facility] Jun 07, 2012 08:16 AM V1-PT THINKING ABOUT QUIT TOBACCO USE [place] [facility] [place] [facility] Jan 05, 2012 09:00 AM CURRENT SMOKER intermittenly [facility] [place] [facility] Jan 05, 2012 09:00 AM V1-PT DECLINES REF TO TOBACCO CESS PRGM [facility] [place] [facility] Jan 05, 2012 09:00 AM V1-PT DECLINES TOBACCO CESSATION MEDS [facility] [place] [facility] Jan 05, 2012 09:00 AM V1-PT THINKING ABOUT QUIT TOBACCO USE [facility] [place] [facility] Feb 17, 2011 09:52 AM V1-PT DECLINES TOBACCO CESSATION MEDS [facility] [place] [facility] Feb 17, 2011 09:52 AM V1-PT THINKING ABOUT QUIT TOBACCO USE [facility] [place] [facility] Aug 13, 2010 11:31 AM QUIT TOBACCO USE IN PAST YEAR [facility] Feb 19, 2010 01:26 PM QUIT TOBACCO USE IN PAST YEAR [facility] [place] [facility] Sep 13, 2009 11:04 AM QUIT TOBACCO USE IN PAST YEAR [facility] [place] [facility] Feb 05, 2009 08:29 AM V1-PT DECLINES REF TO TOBACCO CESS PRGM [facility] [place] [facility] Feb 05, 2009 08:29 AM V1-PT DECLINES TOBACCO CESSATION MEDS [facility] [place] [facility] Feb 05, 2009 08:29 AM V1-PT THINKING ABOUT QUIT TOBACCO USE [facility] [place] [facility] Aug 22, 2008 09:04 AM QUIT TOBACCO USE IN PAST YEAR [facility] [place] [facility] Mar 12, 2008 10:40 AM V1-PT DECLINES REF TO TOBACCO CESS PRGM [facility] [place] [place] [facility] Mar 12, 2008 10:40 AM V1-PT DECLINES TOBACCO CESSATION MEDS [facility] [place] [place] [facility] Mar 12, 2008 10:40 AM V1-PT NOT INTERESTED IN QUIT TOBACCO USE [facility] [place] [facility] Mar 08, 2008 09:37 AM CURRENT SMOKER smokes one pack a day for about 10 years ago. [facility]
--- OUTSIDE RECORDS SUMMARY | 2024-07-05 03:17 | XMS_ITS | Encounter Summary ---
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 Address [address] [place] [address] Care Team Providers Care Labor Supervisor Name Role Phone ROMANA CASTILLO Primary Care [...] Garcia's Name Patient's Relationship to Policy Garcia [facility] (MEDICAID) [facility]ID [facility] May 14, 2009 [id number] SAMPLE,ROCCO MOORE PATIENT [facility] MEDICAID [facility] May 14, 2009 [id number] SAMPLE,ROCCO MOORE PATIENT MEDICAID MEDICAID [facility] Jul 26, 2018 MEDICAI D [id number] SAMPLE,ROCCO MOORE PATIENT MEDICARE (WNR) MEDICARE (M) PART A November 24, 2015 PART A [id number] SAMPLE,ROCCO MOORE PATIENT MEDICARE (WNR) MEDICARE (M) PART B November 24, 2015 PART B [id number] SAMPLE,ROCCO MOORE PATIENT Selected Encounter This section includes the information on record at [place] for the Encounter. Date/Time Encounter Type Encounter Description Reason Pro vider Source Jul 13, 2023 01:38 PM Outpatient Encounter WEIGHT MGMT & MOVE! PROG - IND IHE Encounter Template Text not used by [place] Plan of Treatment: Future Appointments (+ 6 months) and Future Tests (+/- 45 days) The Plan of Treatment section includes future care activities for the patient from all [place] treatmentfacilities. This section includes future appointments and [...] 15, 2023 08:00 AM AMBULATORY - MEDICINE [facility] [place] [facility] Aug 05, 2023 04:00 PM AMBULATORY [place] [facility] [place] [facility] Aug 18, 2023 12:00 PM AMBULATORY - MEDICINE [facility] [place] [facility] Sep 08, 2023 01:00 PM AMBULATORY - MEDICINE [facility] [place] Sep 08, 2023 01:30 PM AMBULATORY - [place]ICINE [place] [facility] [place] [facility] Oct 06, 2023 09:00 AM AMBULATORY - MEDICINE [facility] [place] Oct 07, 2023 01:00 PM AMBULATORY [place] [facility] [place] [facility] Oct 25, 2023 11:00 AM AMBULATORY - MEDICINE [facility] [place] Nov 09, 2023 09:00 AM AMBULATORY - [place]ICINE [place] [facility] [place] Nov 17, 2023 09:30 AM AM[place]ULATORY - [place]ICINE [place] [facility] [place] Jan 03, 2024 11:00 AM AMBULATORY - [place]ATRY [place] [facility] [place] Social History: Smoking Status (Most current) [...] 31, 2023 11:00 AM VA-TOBACCO FORMER USER [facility] Tobacco Use History This section includes a history of the smoking, or tobacco-related health factors, that were collected on or before the date of the Encounter. The data comes from the [place] facility where the Encounter took place. Date/Time Smoking Status/Tobac co Use Comment Facility Mar 31, 2023 11:00 AM VA-TOBACCO QUIT 1 TO < 5 YRS [place] [facility] [place] [facility] Mar 25, 2022 10:30 AM VA-TOBACCO NEVER USED [place] [facility] [place] Mar 19, 2021 02:00 PM VA-TOBACCO FORMER USER [place] [facility] Mar 19, 2021 02:00 PM VA-TOBACCO QUIT < 1 YEAR [place] [facility] Sep 20, 2018 11:24 AM VA-TOBACCO USE DECLINED TO ANSWER [place] [facility] Oct 21, 2017 08:13 AM QUIT TOBACCO USE IN PAST YEAR [place] [facility] [place] Dec 30, 2016 08:28 AM QUIT TOBACCO USE 1-7 YEARS AGO [place] [facility] Jun 04, 2016 08:43 AM QUIT TOBACCO USE 1-7 YEARS AGO [place] [facility] May 17, 2015 08:45 AM QUIT TOBACCO USE 1-7 YEARS AGO quit 2 years ago. [place] [facility] Jun 07, 2014 09:25 AM QUIT TOBACCO USE 1-7 YEARS AGO [place] [facility] November 30, 2013 08:44 AM QUIT TOBACCO USE IN PAST YEAR [place] [facility] May 22, 2013 10:10 AM QUIT TOBACCO USE IN PAST YEAR [place] [facility] [place] December 01, 2012 01:54 PM QUIT TOBACCO USE IN PAST YEAR [place] [facility] Jun 07, 2012 08:16 AM V1-PT DECLINES TOBACCO CESSATION MEDS [place] [facility] Jun 07, 2012 08:16 AM V1-PT THINKING ABOUT QUIT TOBACCO USE [facility] Jan 05, 2012 09:00 AM CURRENT SMOKER intermittenly [facility] Jan 05, 2012 09:00 AM V1-PT DECLINES REF TO TOBACCO CESS PRGM [facility] [place] [facility] Jan 05, 2012 09:00 AM V1-PT DECLINES TOBACCO CESSATION MEDS [place] [facility] Jan 05, 2012 09:00 AM V1-PT THINKING ABOUT QUIT TOBACCO USE [place] [facility] Feb 17, 2011 09:52 AM V1-PT DECLINES TOBACCO CESSATION MEDS [place] [facility] Feb 17, 2011 09:52 AM V1-PT THINKING ABOUT QUIT TOBACCO USE [place] [facility] [place] Aug 13, 2010 11:31 AM QUIT TOBACCO USE IN PAST YEAR [place] [facility] Feb 19, 2010 01:26 PM QUIT TOBACCO USE IN PAST YEAR [place] [facility] Sep 13, 2009 11:04 AM QUIT TOBACCO USE IN PAST YEAR [place] [facility] Feb 05, 2009 08:29 AM V1-PT DECLINES REF TO [facility]BACCO CESS [facility] [place] Feb 05, 2009 08:29 AM V1-PT DECLINES TOBACCO [facility]ESSATION [facility] Feb 05, 2009 08:29 AM V1-PT THINKING ABOUT QUIT TOBACCO USE [place] [facility] Aug 22, 2008 09:04 AM QUIT TOBACCO USE IN PAST YEAR [place] [facility] Mar 12, 2008 10:40 AM V1-PT DECLINES REF TO TOBACCO CESS PRGM [place] [facility] Mar 12, 2008 10:40 AM V1-PT DECLINES TOBACCO CESSATION MEDS [place] [facility] Mar 12, 2008 10:40 AM V1-PT NOT INTERESTED IN QUIT TOBACCO USE [place] [facility] Mar 08, 2008 09:37 AM CURRENT SMOKER smokes one pack a day for about 10 years ago. [place] [facility] Encounter Notes: All associated encounter notes This section contains the clinical notes associated to the Encounter. Date/Time Encounter Note(s) Provider Source Jul 13, 2023 01:38 PM CARE COORDINATION HOME TELEHEALTH DISCHARGE NOTE: LOCAL TITLE: HT DISCHARGE NOTE STANDARD TITLE: CARE COORDINATION HOME TELEHEALTH DISCHARGE NOTE DATE OF NOTE: JUL 13, 2023@13:38 ENTRY DATE: JUL 13, 2023@13:38:52 AUTHOR: ROCHELLE NAVAS EXP COSIGNER: URGENCY: STATUS: COMPLETED HOME TELEHEALTH (HT) DISCHARGE NOTE Dates of enrollment: Ht (Home Telehealth) 04/05/2023 Ht Enrollment-Start Date 06/25/2021 Ht Clinical Reason For Enrollment obesity To: Date: July 13, 2023 HT PROGRAM DIAGNOSIS: Obesity Summary of Program Enrollment/Participation: Venkata has only signed on to the program once in May. She stated that she has had a lot of family issues and appointments that have taken up her time. She has also had difficulties manueuvering the equipment provided and indicated that the scale initially sent was defective. A new scale was delivered a month ago, but venkata has not yet used it. She has stated that she has made significant changes in her diet and has increased physical activity. The one weight obtained reflected an 8 lb loss in three months. REASON FOR DISCHARGE: has not responded to requirements of the program [place] is aware of the reason for discharge: did not answer phone, so VM left stating the reason for the discharge Questions and concerns have been addressed: left contact information if any questions Technology inactivated as appropriate on [place] ([facility]) and Vendor systems: yes FOLLOW-UP: pcp 08/04/23 /divya/ Rochelle Navas RD, LDN Staff Dietitian Signed: 07/13/2023 15:21 Receipt Acknowledged By: 07/14/2023 08:50 /divya/ ALESHIA THOMPSON TELEHEALTH DIGITAL MEDIA STRATEGIST 07/13/2023 18:06 /divya/ ROMANA CASTILLO MD PHYSICIAN ROCHELLE NAVAS [place] [facility]
--- OUTSIDE RECORDS SUMMARY | 2024-07-05 03:18 | XMS_ITS ---
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 Name Role Phone ROMANA CASTILLO Primary [...] Member ID Insurance Provider's Telephone Number Policy Gracia's Name Patient's Relationship to Policy Garcia [facility] (MEDICAID[facility] May 14, 2009 [id number] SAMPLE,ROCCO MOORE PATIENT [facility] MEDICAID [facility] HUMAN [facility] May 14, 2009 [id number] SAMPLE,ROCCO MOORE PATIENT MEDICAID MEDICAID [facility] Jul 26, 2018 MEDICAI D [id number] SAMPLE,ROCCO MOORE PATIENT MEDICARE (WNR) MEDICARE (M) PART A November 24, 2015 PART A [id number] SAMPLE,ROCCO MOORE PATIENT MEDICARE (WNR) MEDICARE (M) PART B November 24, 2015 PART B [id number] ROCCO QUEZADA PATIENT Selected Encounter This section includes the information on record at [place] for the Encounter. Date/Time Encounter Type Encounter Description Reason Pro vider Source Jul 13, 2023 02:28 PM Outpatient Encounter [facility] Encounter Template Text not used by [place] Plan of Treatment: Future Appointments (+ 6 months) and Future Tests (+/- 45 days) The Plan of Treatment section includes future care activities for the patient from all [place] [facility]. This section includes future appointments and future orders which are active, pending or scheduled. Future Appointments This section includes appointments that were scheduled to occur 6 months from the date of the Encounter, up to a maximum of 20 appointments. The data comes from all [place] treatment facilities. Appointment Date/Time Appointment Type Appointme nt Facility Name Jul 15, 2023 08:00 AM AMBULATORY - MEDICINE [place] C [facility] [place] [facility] Aug 05, 2023 04:00 PM AMBULATORY - PSYCHIATRY [place] [facility] [place] [facility] Aug 18, 2023 12:00 PM AMBULATORY - MEDICINE [place] C [facility] [place] [facility] Sep 08, 2023 01:00 PM AMBULATORY - MEDICINE [place] C [facility] [place] [facility] Sep 08, 2023 01:30 PM AMBULATORY - MEDICINE [place] C [facility] [place] [place] [facility] Oct 06, 2023 09:00 AM AMBULATORY - MEDICINE [place] C [facility] [place] [facility] Oct 07, 2023 01:00 PM AMBULATORY - PSYCHIATRY [place] [facility] [place] [facility] Oct 25, 2023 11:00 AM AMBULATORY - MEDICINE [place] C [facility] [place] [place] [facility] Nov 09, 2023 09:00 AM AMBULATORY - MEDICINE [place] C [facility] [place] [facility] Nov 17, 2023 09:30 AM AMBULATORY - MEDICINE [place] C [facility] [place] [facility] Jan 03, 2024 11:00 AM AMBULATORY - PSYCHIATRY [place] [facility] [place] [facility] Social History: Smoking Status (Most current) and Tobacco Use (All prior to encounter date) This section includes the most current, and the historical, smoking and tobacco- related health factors from the [place] facility where the Encounter took place. Current Smoking Status This section includes the most current smoking, or tobacco-related health factor, from the [place] facility where the Encounter took place. Date/Time Current Smoking Status Comment Facil it Mar 31, 2023 11:00 AM [facility] Tobacco Use History This section includes a history of the smoking, or tobacco-related health factors, that were collected on or before the date of the Encounter. The data comes from the [place] facility where the Encounter took place. Date/Time Smoking Status/Tobac co Use Comment Facility Mar 31, 2023 11:00 AM VA-TOBACCO QUIT 1 TO < 5 YRS [place] [facility] [place] [facility] Mar 25, 2022 10:30 AM VA-TOBACCO NEVER USED [place] [facility] [place] [facility] Mar 19, 2021 02:00 PM VA-TOBACCO FORMER USER [place] CNT [facility] [place] [facility] Mar 19, 2021 02:00 PM VA-TOBACCO QUIT < 1 YEAR [facility] Sep 20, 2018 11:24 AM VA-TOBACCO USE DECLINED TO ANSWER [place] [facility] [place] [facility] Oct 21, 2017 08:13 AM QUIT TOBACCO USE IN PAST YEAR [place] [facility] [place] [facility] Dec 30, 2016 08:28 AM QUIT TOBACCO USE 1-7 YEARS AGO [place] [facility] [place] [facility] Jun 04, 2016 08:43 AM QUIT TOBACCO USE 1-7 YEARS AGO [place] [facility] [place] [facility] May 17, 2015 08:45 AM QUIT TOBACCO USE 1-7 YEARS AGO quit 2 years ago. [place] [facility] [place] [facility] Jun 07, 2014 09:25 AM QUIT TOBACCO USE 1-7 YEARS AGO [place] [facility] [place] [facility] November 30, 2013 08:44 AM QUIT TOBACCO USE IN PAST YEAR [place] [facility] [place] [facility] May 22, 2013 10:10 AM QUIT TOBACCO USE IN PAST YEAR [place] [facility] [place] [facility] December 01, 2012 01:54 PM QUIT TOBACCO USE IN PAST YEAR [place] [facility] [place] [facility] Jun 07, 2012 08:16 AM V1-PT DECLINES TOBACCO CESSATION MEDS [facility] Jun 07, 2012 08:16 AM V1-PT THINKING ABOUT QUIT TOBACCO USE [place] [facility] [place] [facility] Jan 05, 2012 09:00 AM CURRENT SMOKER intermittenly [place] [facility]TR [facility] [place] [facility] Jan 05, 2012 09:00 AM V1-PT DECLINES REF TO TOBACCO CESS PRGM [place] [facility] [place] [facility] Jan 05, 2012 09:00 AM V1-PT DECLINES TOBACCO CESSATION MEDS [place] [facility] [place] [facility] Jan 05, 2012 09:00 AM V1-PT THINKING ABOUT QUIT TOBACCO USE [place] [facility] [place] [facility] Feb 17, 2011 09:52 AM V1-PT DECLINES TOBACCO CESSATION MEDS [place] [facility] [place] [facility] Feb 17, 2011 09:52 AM V1-PT THINKING ABOUT QUIT TOBACCO USE [place] [facility] [place] [facility] Aug 13, 2010 11:31 AM [facility] [place] [facility] Feb 19, 2010 01:26 PM QUIT TOBACCO USE IN PAST YEAR [place] [facility] [place] [facility] Sep 13, 2009 11:04 AM QUIT TOBACCO [facility] [place] [facility] Feb 05, 2009 08:29 AM V1-PT DECLINES REF TO TOBACCO CESS [facility] [place] [facility] Feb 05, 2009 08:29 AM V1-PT DECLINES [facility]BACCO [facility] [place] [facility] Feb 05, 2009 08:29 AM V1-PT THINKING ABOUT QUIT TOBACCO USE [place] [facility] [place] [facility] Aug 22, 2008 09:04 AM QUIT TOBACCO USE IN PAST YEAR [place] [facility] [place] [facility] Mar 12, 2008 10:40 AM V1-PT DECLINES REF TO TOBACCO CESS PRGM [place] [facility]TR [facility] [place] [facility] Mar 12, 2008 10:40 AM V1-PT DECLINES TOBACCO CESSATION MEDS [place] [facility] [place] [facility] Mar 12, 2008 10:40 AM V1-PT NOT INTERESTED IN QUIT TOBACCO USE [place] [facility] [place] [facility] Mar 08, 2008 09:37 AM CURRENT SMOKER smokes one pack a day for about 10 years ago. [facility] [place] [facility] Encounter Notes: All associated encounter notes This section contains the clinical notes associated to the Encounter. Date/Time Encounter Note(s) Provider Source Jul 13, 2023 02:28 PM ADMINISTRATIVE NOT E: LOCAL TITLE: ADMINISTRATIVE NOTE STANDARD TITLE: ADMINISTRATIVE NOTE DATE OF NOTE: JUL 13, 2023@14:28 ENTRY DATE: JUL 13, 2023@14:28:37 AUTHOR: KORUTNEY BAILEY COSIGNER: URGENCY: STATUS: COMPLETED RTC orders: Unable to contact patient: Attempts to contact: 1st attempt: Left voicemail 2nd attempt: Letter mailedDisposition onJul 3rd attempt: 4th attempt: /divya/ KOURTNEY BAILEY [employer] FIELD MERCHANDISER Signed: 07/13/2023 14:29 KOURTNEY BAILEY [facility]
--- OUTSIDE RECORDS SUMMARY | 2024-07-05 03:19 | XMS_ITS | Encounter Summary ---
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 Address [address] [place] [address] Care Team Providers Care Kiss Machine Operator Name Role Phone ROMANA CASTILLO Primary [...] Garcia's Name Patient's Relationship to Policy Garcia [facility] (MEDICAID) [facility] May 14, 2009 [id number] SAMPLE,ROCCO MOORE PATIENT [facility]ID [facility] May 14, 2009 [id number] SAMPLE,ROCCO MOORE PATIENT MEDICAID MEDICAID [facility] [place] Jul 26, 2018 MEDICAI D [id number] SAMPLE,ROCCO MOORE PATIENT MEDICARE (WNR) MEDICARE (M) PART B November 24, 2015 PART B [id number] SAMPLE,ROCCO MOORE PATIENT MEDICARE (WNR) MEDICARE (M) PART A November 24, 2015 PART A [id number] ROCCO QUEZADA PATIENT Selected Encounter This section includes the information on record at NE for the Encounter. Date/Time Encounter Type Encounter Description Reason Pro vider Source Jul 14, 2023 09:40 AM Outpatient Encounter PAIN CLINIC IHE Encounter Template Text not used by NE Plan of Treatment: Future Appointments (+ 6 months) and Future Tests (+/- 45 days) The Plan of Treatment section includes future care activities for the patient from all [place] treatmentfacilities. This section includes future appointments and future orders which are active, pending or scheduled. Future Appointments This section includes appointments that were scheduled to occur 6 months from the date of the Encounter, up to a maximum of 20 appointments. The data comes from all NE treatment facilities. Appointment Date/Time Appointment Type Appointme nt Facility Name Jul 15, 2023 08:00 AM AMBULATORY - MEDICINE [place] [facility] [place] [facility] Aug 05, 2023 04:00 PM AMBULATORY - PSYCHIATRY NE [facility] [place] [facility] Aug 18, 2023 12:00 PM AMBULATORY - MEDICINE NE C [facility] [place] [facility] Sep 08, 2023 01:00 PM AMBULATORY - MEDICINE NE C [facility] [place] [facility] Sep 08, 2023 01:30 PM AMBULATORY - MEDICINE NE C [facility] [place] [facility] Oct 06, 2023 09:00 AM AMBULATORY - MEDICINE NE C [facility] [place] [facility] Oct 07, 2023 01:00 PM AMBULATORY - PSYCHIATRY NE [facility] [place] [facility] Oct 25, 2023 11:00 AM AMBULATORY - MEDICINE NE C [facility] [place] [facility] Nov 09, 2023 09:00 AM AMBULATORY - MEDICINE NE C [facility] [place] [facility] Nov 17, 2023 09:30 AM AMBULATORY - MEDICINE NE C [facility] [place] [facility] Jan 03, 2024 11:00 AM AMBULATORY - PSYCHIATRY NE [facility] [place] [facility] Social History: Smoking Status (Most current) and Tobacco Use (All prior to encounter date) This section includes the most current, and the historical, smoking and tobacco- related health factors from the NE facility where the Encounter took place. Current Smoking Status This section includes the most current smoking, or tobacco-related health factor, from the NE facility where the Encounter took place. Date/Time Current Smoking Status Comment Rosana humphrey Mar 31, 2023 11:00 AM [facility]CO [facility] Tobacco Use History This section includes a history of the smoking, or tobacco-related health factors, that were collected on or before the date of the Encounter. The data comes from the NE facility where the Encounter took place. Date/Time Smoking Status/Tobac co Use Comment Facility Mar 31, 2023 11:00 AM VA-TOBACCO QUIT 1 TO < 5 YRS NE [facility]TR [facility] [place] [facility] Mar 25, 2022 10:30 AM VA-TOBACCO NEVER USED NE CNTR [facility] [place] [facility] Mar 19, 2021 02:00 PM VA-TOBACCO FORMER USER NE CNTR [facility] [place] [facility] Mar 19, 2021 02:00 PM VA-TOBACCO QUIT < 1 YEAR [facility] [place] [facility] Sep 20, 2018 11:24 AM VA-TOBACCO USE [facility]CLIN[facility] [place] [facility] Oct 21, 2017 08:13 AM QUIT TOBACCO USE IN PAST YEAR NE CNTR [facility] [place] [facility] Dec 30, 2016 08:28 AM QUIT TOBACCO USE 1-7 YEARS AGO NE CNTR [facility] [place] [facility] Jun 04, 2016 08:43 AM QUIT TOBACCO USE 1-7 YEARS AGO NE [facility]TR [facility] [place] [facility] May 17, 2015 08:45 AM QUIT TOBACCO USE 1-7 YEARS AGO quit 2 years ago. [facility] [place] [facility] Jun 07, 2014 09:25 AM QUIT TOBACCO USE 1-7 YEARS AGO NE CNTR [facility] [place] [facility] November 30, 2013 08:44 AM QUIT TOBACCO USE IN PAST YEAR NE CNTR [facility] [place] [facility] May 22, 2013 10:10 AM QUIT TOBACCO USE IN PAST YEAR NE CNTR [facility] [place] [facility] December 01, 2012 01:54 PM QUIT TOBACCO USE IN PAST YEAR NE CNTR [facility] [place] [facility] Jun 07, 2012 08:16 AM V1-PT DECLINES TOBACCO CESSATION MEDS [facility] Jun 07, 2012 08:16 AM V1-PT THINKING ABOUT QUIT TOBACCO USE NE CNTR [facility] [place] [facility] Jan 05, 2012 09:00 AM CURRENT SMOKER intermittenly [facility] [place] [facility] Jan 05, 2012 09:00 AM V1-PT DECLINES REF TO TOBACCO CESS PRGM NE CNTR [facility] [place] [facility] Jan 05, 2012 09:00 AM V1-PT DECLINES TOBACCO CESSATION MEDS [facility] [place] [facility] Jan 05, 2012 09:00 AM V1-PT THINKING ABOUT QUIT TOBACCO USE NE CNTR [facility] [place] [facility] Feb 17, 2011 09:52 AM V1-PT DECLINES TOBACCO [facility]ESS[facility] [place] [facility] Feb 17, 2011 09:52 AM V1-PT THINKING ABOUT QUIT TOBACCO USE NE CNTR [facility] [place] [facility] Aug 13, 2010 11:31 AM QUIT TOBACCO USE IN PAST YEAR [facility] [place] [facility] Feb 19, 2010 01:26 PM QUIT TOBACCO USE IN PAST YEAR [facility] [place] [facility] Sep 13, 2009 11:04 AM QUIT TOBACCO USE IN PAST YEAR [facility] [place] [facility] Feb 05, 2009 08:29 AM V1-PT DECLINES REF TO TOBACCO CESS PRGM [facility] [place] [facility] Feb 05, 2009 08:29 AM V1-PT DECLINES TOBACCO CESSATION MEDS [facility] [place] [facility] Feb 05, 2009 08:29 AM V1-PT THINKING ABOUT QUIT TOBACCO USE [facility] [place] [facility] Aug 22, 2008 09:04 AM QUIT TOBACCO USE IN PAST YEAR [facility] [place] [facility] Mar 12, 2008 10:40 AM V1-PT DECLINES REF TO TOBACCO CESS PRGM NE CNTR [facility] [place] [facility] Mar 12, 2008 10:40 AM V1-PT DECLINES TOBACCO CESSATION MEDS NE CNTR [facility] [place] [facility] Mar 12, 2008 10:40 AM V1-PT NOT INTERESTED IN QUIT TOBACCO USE [facility] [place] [facility] Mar 08, 2008 09:37 AM CURRENT SMOKER smokes one pack a day for about 10 years ago. [facility] Encounter Notes: All associated encounter notes This section contains the clinical notes associated to the Encounter. Date/Time Encounter Note(s) Provider Source Jul 14, 2023 09:40 AM TELEPHONE ENCOUNTE R NOTE: LOCAL TITLE: TELEPHONE NOTE/SPECIALTY CLINIC STANDARD TITLE: TELEPHONE ENCOUNTER NOTE DATE OF NOTE: JUL 14, 2023@09:40 ENTRY DATE: JUL 14, 2023@09:40:07 AUTHOR: LORI QUEVEDO COSIGNER: URGENCY: STATUS: COMPLETED Call attempt was made to remind vet they have a VVC appt with the Pain clinic on 07/15/2023 at 0800. No answer, lvm. /es/ LORI QUEVEDO Signed: 07/14/2023 09:40 LORI QUEVEDO CNTRL [facility]
--- OUTSIDE RECORDS SUMMARY | 2024-07-05 03:19 | XMS_ITS | Encounter Summary ---
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 Address [address] [place] [address] Care Team Providers Care Business Account Leader Name Role Phone ROMANA CASTILLO Primary Care [...] Garcia's Name Patient's Relationship to Policy Garcia [facility] (MEDICAID) [facility] May 14, 2009 [id number] SAMPLE,ROCCO MOORE PATIENT [facility] May 14, 2009 [id number] SAMPLE,ROCCO MOORE PATIENT MEDICAID MEDICAID [facility] [place] Jul 26, 2018 MEDICAI D [id number] SAMPLE,ROCCO MOORE PATIENT MEDICARE (WNR) MEDICARE (M) PART A November 24, 2015 PART A [id number] SAMPLE,ROCCO MOORE PATIENT MEDICARE (WNR) MEDICARE (M) PART B November 24, 2015 PART B [id number] ROCCO QUEZADA PATIENT Selected Encounter This section includes the information on record at [place] for the Encounter. Date/Time Encounter Type Encounter Description Reason Pro vider Source Jul 15, 2023 08:00 AM Outpatient Encounter PAIN CLINIC IHE Encounter Template Text not used by [place] Plan of Treatment: Future Appointments (+ 6 months) and Future Tests (+/- 45 days) The Plan of Treatment section includes future care activities for the patient from all [place] treatmentfacilities. This section includes future appointments and future orders which are active, pending or scheduled. Future Appointments This section includes appointments that were scheduled to occur 6 months from the date of the Encounter, up to a maximum of 20 appointments. The data comes from all [place] treatment facilities. Appointment Date/Time Appointment Type Appointme nt Facility Name Aug 05, 2023 04:00 PM AMBULATORY - PSYCHIATRY [place] [facility] [place] [facility] Aug 18, 2023 12:00 PM AMBULATORY - MEDICINE [facility] N[facility]L [facility] [place] [facility] Sep 08, 2023 01:00 PM AMBULATORY - MEDICINE [place] C [facility] [facility] Sep 08, 2023 01:30 PM AMBULATORY - MEDICINE [place] C [facility] [facility] Oct 06, 2023 09:00 AM AMBULATORY - MEDICINE [facility]L [facility] [place] [facility] Oct 07, 2023 01:00 PM AMBULATORY - PSYCHIATRY [place] [facility] [place] [facility] Oct 25, 2023 11:00 AM AMBULATORY - MEDICINE [facility] N[facility]L [facility] [place] [facility] Nov 09, 2023 09:00 AM AMBULATORY - MEDICINE [place] C [facility] [facility] Nov 17, 2023 09:30 AM AMBULATORY - MEDICINE [place] C [facility] [facility] Jan 03, 2024 11:00 AM AMBULATORY - PSYCHIATRY [place] [facility] [place] [facility] Social History: Smoking Status (Most current) and Tobacco Use (All prior to encounter date) This section includes the most current, and the historical, smoking and tobacco- related health factors from the [place] facility where the Encounter took place. Current Smoking Status This section includes the most current smoking, or tobacco-related health factor, from the [place] facility where the Encounter took place. Date/Time Current Smoking Status Comment Rosana christian Mar 31, 2023 11:00 AM GA-TOBACCO QUIT 1 TO < 5 YRS [facility] Tobacco Use History This section includes a history of the smoking, or tobacco-related health factors, that were collected on or before the date of the Encounter. The data comes from the [place] facility where the Encounter took place. Date/Time Smoking Status/Tobac co Use Comment Facility Mar 31, 2023 11:00 AM VA-TOBACCO QUIT 1 TO < 5 YRS [facility] Mar 25, 2022 10:30 AM VA-TOBACCO [facility]ED [facility] Mar 19, 2021 02:00 PM VA-TOBACCO FORMER USER [facility] Mar 19, 2021 02:00 PM GA-TOBACCO QUIT < 1 YEAR [facility] Sep 20, 2018 11:24 AM VA-TOBACCO USE DECLINED TO ANSWER [facility] Oct 21, 2017 08:13 AM QUIT TOBACCO USE IN PAST YEAR [facility] [place] [facility] Dec 30, 2016 08:28 AM QUIT TOBACCO USE 1-7 YEARS AGO [facility] Jun 04, 2016 08:43 AM QUIT TOBACCO USE 1-7 YEARS AGO [facility] May 17, 2015 08:45 AM QUIT TOBACCO USE 1-7 YEARS AGO quit 2 years ago. [facility] Jun 07, 2014 09:25 AM QUIT TOBACCO USE 1-7 YEARS AGO [facility] [place] [facility] November 30, 2013 08:44 AM QUIT TOBACCO USE IN PAST YEAR [facility] [place] [facility] May 22, 2013 10:10 AM QUIT TOBACCO USE IN PAST YEAR [facility] [place] [facility] December 01, 2012 01:54 PM QUIT TOBACCO USE IN PAST YEAR [facility] [place] [facility] Jun 07, 2012 08:16 AM V1-PT DECLINES TOBACCO CESSATION MEDS [facility] Jun 07, 2012 08:16 AM V1-PT THINKING ABOUT QUIT TOBACCO USE [facility] Jan 05, 2012 09:00 AM CURRENT [facility]ER [facility] [place] [facility] Jan 05, 2012 09:00 AM V1-PT DECLINES REF TO TOBACCO CESS PRGM [place] CNTR [place] [facility] Jan 05, 2012 09:00 AM V1-PT DECLINES TOBACCO CESSATION MEDS [place] [facility] [place] [facility] Jan 05, 2012 09:00 AM V1-PT THINKING ABOUT QUIT [facility]ACCO [facility] [place] [facility] Feb 17, 2011 09:52 AM V1-PT DECLINES TOBACCO CESSATION MEDS [place] [facility] [place] [facility] Feb 17, 2011 09:52 AM V1-PT THINKING ABOUT QUIT TOBACCO USE [place] [facility]TR [place] [facility] Aug 13, 2010 11:31 AM QUIT TOBACCO USE IN [facility]ST [facility] [place] [facility] Feb 19, 2010 01:26 PM QUIT TOBACCO USE IN [facility]ST [facility] [place] [facility] Sep 13, 2009 11:04 AM QUIT TOBACCO USE [facility]ST [facility] [place] [facility] Feb 05, 2009 08:29 AM V1-PT DECLINES REF TO TOBACCO CESS PR[facility] [place] [facility] Feb 05, 2009 08:29 AM V1-PT DECLINES TOBACCO CESSATION [facility] [place] [facility] Feb 05, 2009 08:29 AM V1-PT THINKING ABOUT QUIT [facility]BACCO [facility] [place] [facility] Aug 22, 2008 09:04 AM QUIT TOBACCO USE IN [facility]ST [facility] [place] [facility] Mar 12, 2008 10:40 AM V1-PT DECLINES REF TO TOBACCO CESS PR[facility] [place] [facility] Mar 12, 2008 10:40 AM V1-PT DECLINES TOBACCO CESSATION [facility] [place] [facility] Mar 12, 2008 10:40 AM V1-PT NOT INTERESTED IN QUIT TOBACCO USE [place] CNTR [place] [facility] Mar 08, 2008 09:37 AM CURRENT SMOKER smokes one pack a day for about 10 years ago. [facility] [place] [facility] Encounter Notes: All associated encounter notes This section contains the clinical notes associated to the Encounter. Date/Time Encounter Note(s) Provider Source Jul 15, 2023 09:18 AM CLERICAL NOTE: LOCAL TITLE: APPOINTMENT NO SHOW STANDARD TITLE: CLERICAL NOTE DATE OF NOTE: JUL 15, 2023@09:18 ENTRY DATE: JUL 15, 2023@09:18:31 AUTHOR: TANG PACHECO COSIGNER: URGENCY: STATUS: COMPLETED Patient Name: REID QUEZADA Patient SSN: [id number] Date and time of Appointment No show : 07/15/23 08:00 PATIENT PHONE - PHONE NUMBER [CELLULAR] - Patient's medical record was reviewed. Follow-up actions were determined and initiated: Please check/complete as applies: [X]Telephoned Directly [ ]Re-scheduled for next available appt [ ]Sent a N0-show letter ( must call for appointment) [ ]Other (Emergent/Overbook, etc.): Additional Comments: Attempted to reach [place] via telephone at 8:05 a.m. [place] did not answer. [place] Helper and Dr. Adorno remained on VVC until 8:15 a.m. Future Clinic Visits 07/28/2023 14:00 NHM/ENDOCRINE 08/04/2023 14:30 CWM/NO/PACT 4 08/18/2023 11:00 CWM/NO/PAIN 1 /es/ TANG PACHECO, PH.D. CLINICAL HEALTH PSYCHOLOGIST Signed: 07/15/2023 09:19 TANG PACHECO [facility]
--- OUTSIDE RECORDS SUMMARY | 2024-07-05 03:19 | XMS_ITS | Encounter Summary ---
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 Address [address] [place] [address] Care Team Providers Care Chiropractic Practice Manager Name Role Phone ROMANA CASTILLO Primary Care [...] Garcia's Name Patient's Relationship to Policy Garcia [facility] (MEDICAID) MEDICAID [facility] HUMAN [facility] May 14, 2009 [id number] SAMPLE,ROCCO MOORE PATIENT [facility] MEDICAID [facility] May 14, 2009 [id number] SAMPLE,ROCCO MOORE PATIENT MEDICAID MEDICAID [facility] [place] Jul 26, 2018 MEDICAI D [id number] SAMPLE,ROCCO MOORE PATIENT MEDICARE (WNR) MEDICARE (M) PART A November 24, 2015 PART A [id number] SAMPLE,ROCCO MOORE PATIENT MEDICARE (WNR) MEDICARE (M) PART B November 24, 2015 PART B [id number] SAMPLE,ROCCO MOORE PATIENT Selected Encounter This section includes the information on record at [facility] for the Encounter. Date/Time Encounter Type Encounter Description Reason Pro vider Source IHE Encounter Template Text not used by [facility]
--- OUTSIDE RECORDS SUMMARY | 2024-07-05 03:20 | XMS_ITS | Encounter Summary ---
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 Address [address] [place] [address] Care Team Providers Care Jail Guard Name Role Phone ROMANA CASTILLO Primary Care [...] Garcia's Name Patient's Relationship to Policy Garcia [facility] (MEDICAID) MEDICAID [facility] HUMAN [facility] May 14, 2009 [id number] SAMPLE,ROCCO MOORE PATIENT [facility] MEDICAID [facility] May 14, 2009 [id number] SAMPLE,ROCCO MOORE PATIENT MEDICAID MEDICAID [facility] [place] Jul 26, 2018 MEDICAI D [id number] SAMPLE,ROCCO MOORE PATIENT MEDICARE (WNR) MEDICARE (M) PART A November 24, 2015 PART A [id number] SAMPLE,ROCCO MOORE PATIENT MEDICARE (WNR) MEDICARE (M) PART B November 24, 2015 PART B [id number] SAMPLE,ROCCO MOORE PATIENT Selected Encounter This section includes the information on record at [facility] for the Encounter. Date/Time Encounter Type Encounter Description Reason Pro vider Source IHE Encounter Template Text not used by VA
--- OUTSIDE RECORDS SUMMARY | 2024-07-05 03:21 | XMS_ITS | Encounter Summary ---
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 Organization [place] Address [address] [place] [id number] Care Team Providers Care Data Operations Director Name Role Phone ROMANA CASTILLO Primary Care [...] Garcia's Name Patient's Relationship to Policy Garcia [facility] (MEDICAID) [facility] May 14, 2009 [id number] SAMPLE,ROCCO MOORE PATIENT [facility]ICAID [facility] May 14, 2009 [id number] SAMPLE,ROCCO MOORE PATIENT MEDICAID MEDICAID [facility] Jul 26, 2018 MEDICAI D [id number] SAMPLE,ROCCO MOORE PATIENT MEDICARE (WNR) MEDICARE (M) PART B November 24, 2015 PART B [id number] [phone] SAMPLE,ROCCO MOORE PATIENT MEDICARE (WNR) MEDICARE (M) PART A November 24, 2015 PART A [id number] [phone] ROCCO QUEZADA PATIENT Selected Encounter This section includes the information on record at [place] for the Encounter. Date/Time Encounter Type Encounter Description Reason Pro vider Source Jul 27, 2023 01:16 PM Outpatient Encounter PAIN CLINIC IHE Encounter Template Text not used by [place] Plan of Treatment: Future Appointments (+ 6 months) and Future Tests (+/- 45 days) The Plan of Treatment section includes future care activities for the patient from all [place] treatmentfacilities. This section includes future appointments and future orders which are active, pending or scheduled. Future Appointments This section includes appointments that were scheduled to occur 6 months from the date of the Encounter, up to a maximum of 20 appointments. The data comes from all [place] treatment facilities. Appointment Date/Time Appointment Type Appointme nt Facility Name Aug 05, 2023 04:00 PM AM[place]ULATORY [place] [facility] [place] [facility] Aug 18, 2023 12:00 PM AM[place]UL[place]ORY [place]ICINE [place] [facility] [place] [facility] Sep 08, 2023 01:00 PM AM[place]ORY [place] [facility] [facility] Sep 08, 2023 01:30 PM [place]ORY [place] [facility] [facility] Oct 06, 2023 09:00 AM [place]ORY [place] [facility] [facility] Oct 07, 2023 01:00 PM AMBUL[place]ORY [place] [facility] [place] [facility] Oct 25, 2023 11:00 AM [place]ORY [place] [facility] [facility] Nov 09, 2023 09:00 AM [place]ORY [place] [facility] [facility] Nov 17, 2023 09:30 AM [place] [facility] [facility] Jan 03, 2024 11:00 AM AMB[place]ORY [place] [facility] [place] [facility] Jan 17, 2024 03:00 PM [place] [facility] [facility] Social History: Smoking Status (Most current) and Tobacco Use (All prior to encounter date) This section includes the most current, and the historical, smoking and tobacco- related health factors from the [facility] facility where the Encounter took place. Current Smoking Status This section includes the most current smoking, or tobacco-related health factor, from the [place] facility where the Encounter took place. Date/Time Current Smoking Status Comment Rosana kam Mar 31, 2023 11:00 AM VA-TOBACCO QUIT 1 TO < 5 [facility]RS [facility] Tobacco Use History This section includes a history of the smoking, or tobacco-related health factors, that were collected on or before the date of the Encounter. The data comes from the [place] facility where the Encounter took place. Date/Time Smoking Status/Tobac co Use Comment Facility Mar 31, 2023 11:00 AM VA-TOBACCO QUIT 1 TO < 5 YRS [place] [facility] [facility] [place] [facility] Mar 25, 2022 10:30 AM VA-TOBACCO NEVER USED [place] [facility] [place] [facility] Mar 19, 2021 02:00 PM VA-TOBACCO FORMER USER [facility] [place] [facility] Mar 19, 2021 02:00 PM [facility] Sep 20, 2018 11:24 AM VA-TOBACCO USE DECLINED TO ANSWER [facility] [place] [facility] Oct 21, 2017 08:13 AM QUIT TOBACCO USE IN PAST YEAR [place] [facility] [facility] [place] [facility] Dec 30, 2016 08:28 AM QUIT TOBACCO [facility] [place] [facility] Jun 04, 2016 08:43 AM QUIT TOBACCO USE 1-7 YEARS AGO [place] [facility] [place] [facility] May 17, 2015 08:45 AM QUIT TOBACCO USE 1-7 YEARS AGO quit 2 years ago. [facility] [place] [facility] Jun 07, 2014 09:25 AM QUIT TOBACCO USE 1-7 YEARS AGO [place] [facility] [facility] [facility] November 30, 2013 08:44 AM QUIT TOBACCO USE IN PAST YEAR [facility] [place] [facility] May 22, 2013 10:10 AM QUIT TOBACCO USE IN PAST [place]AR [place] [facility] [facility] December 01, 2012 01:54 PM QUIT TOBACCO USE IN PAST [place]AR [place] [facility] [facility] Jun 07, 2012 08:16 AM V1-PT DECLINES TOBACCO CESSATION MEDS [facility] Jun 07, 2012 08:16 AM V1-PT THINKING ABOUT QUIT TOBACCO USE [facility] [place] [facility] Jan 05, 2012 09:00 AM CURRENT SMOKER intermittenly [facility] [place] [facility] Jan 05, 2012 09:00 AM V1-PT DECLINES REF TO TOBACCO CESS PRGM [place] [facility] [facility] [facility] Jan 05, 2012 09:00 AM V1-PT DECLINES TOBACCO CESSATION MEDS [facility] [place] [facility] Jan 05, 2012 09:00 AM V1-PT THINKING ABOUT QUIT TOBACCO USE [place] [facility] [facility] [facility] Feb 17, 2011 09:52 AM V1-PT DECLINES TOBACCO CESSATION MEDS [facility] [place] [facility] Feb 17, 2011 09:52 AM V1-PT THINKING ABOUT QUIT TOBACCO USE [facility] [place] [facility] Aug 13, 2010 11:31 AM QUIT TOBACCO USE IN PAST YEAR [facility] [place] [facility] Feb 19, 2010 01:26 PM QUIT TOBACCO USE IN PAST YEAR [facility] [place] [facility] Sep 13, 2009 11:04 AM QUIT TOBACCO USE IN PAST YEAR [facility] [place] [facility] Feb 05, 2009 08:29 AM V1-PT DECLINES REF TO TOBACCO CESS PRGM [facility] [place] [facility] Feb 05, 2009 08:29 AM V1-PT DECLINES TOBACCO CESSATION MEDS [facility] [place] [facility] Feb 05, 2009 08:29 AM V1-PT THINKING ABOUT QUIT TOBACCO USE [facility] [place] [facility] Aug 22, 2008 09:04 AM QUIT TOBACCO USE IN PAST [place]AR [place] [facility] [facility] [facility] Mar 12, 2008 10:40 AM V1-PT DECLINES REF TO TOBACCO CESS PRGM [place] [facility] [facility] Mar 12, 2008 10:40 AM V1-PT DECLINES TOBACCO CESSATION MEDS [place] [facility] [facility] [facility] Mar 12, 2008 10:40 AM V1-PT NOT INTERESTED IN QUIT TOBACCO USE [facility] [place] [facility] Mar 08, 2008 09:37 AM CURRENT SMOKER smokes one pack a day for about 10 years ago. [facility] [place] [facility] Encounter Notes: All associated encounter notes This section contains the clinical notes associated to the Encounter. Date/Time Encounter Note(s) Provider Source Jul 27, 2023 01:16 PM TELEPHONE ENCOUNTE R NOTE: LOCAL TITLE: TELEPHONE NOTE/SPECIALTY CLINIC STANDARD TITLE: TELEPHONE ENCOUNTER NOTE DATE OF NOTE: JUL 27, 2023@13:16 ENTRY DATE: JUL 27, 2023@13:16:40 AUTHOR: BEULAH LOPEZ EXP COSIGNER: URGENCY: STATUS: COMPLETED Talked with vet, she ran out of pain medication Oxycodone. Vet states she has to come to [place] and will be stopping in to talk with Dr. Lyndsey YOUNG phone [phone] /divya/ BEULAH LOPEZ ADVANCED AVAYA ENGINEER Signed: 07/27/2023 13:17 Receipt Acknowledged By: 07/27/2023 15:04 /divya/ Gal Solorio MD STAFF PHYSICIAN BEULAH LOPEZ [facility]
--- OUTSIDE RECORDS SUMMARY | 2024-07-05 03:21 | XMS_ITS ---
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 Address [address] [place] [address] Care Team Providers Care Edge Drummer Name Role Phone ROMANA CASTILLO Primary Care [...] Garcia's Name Patient's Relationship to Policy Garcia [facility] (MEDICAID) MEDICAID [facility] May 14, 2009 [id number] SAMPLE,ROCCO MOORE PATIENT [facility] MEDICAID [facility] May 14, 2009 [id number] SAMPLE,ROCCO MOORE PATIENT MEDICAID MEDICAID [facility] Jul 26, 2018 MEDICAI D [id number] SAMPLE,ROCCO MOORE PATIENT MEDICARE (WNR) MEDICARE (M) PART A November 24, 2015 PART A [id number] SAMPLE,ROCCO MOORE PATIENT MEDICARE (WNR) MEDICARE (M) PART B November 24, 2015 PART B [id number] [facility] PATIENT Selected Encounter This section includes the information on record at [place] for the Encounter. Date/Time Encounter Type Encounter Description Reason Provider Source Jul 27, 2023 02:20 PM OFFICE O/P EST LOW 20 MIN PAIN CLINIC ICD-10-CM G89.4 Chronic pain syndrome GAL MADSEN [facility] Encounter Template Text not used by CT Assessments - Encounter Diagnoses This section includes the primary and secondary diagnoses documented for the Encounter. Date/Time Primary/Secondary Diagnosis Diagnosis Name Provider Source Jul 27, 2023 02:28 PM PRIMARY Chronic pain syndrome GAL MADSEN [facility] [place] [facility] Plan of Treatment: Future Appointments (+ 6 months) and Future Tests (+/- 45 days) The Plan of Treatment section includes future care activities for the patient from all [place] treatmentfacilities. This section includes future appointments and future orders which are active, pending or scheduled. Future Appointments This section includes appointments that were scheduled to occur 6 months from the date of the Encounter, up to a maximum of 20 appointments. The data comes from all [place] treatment facilities. Appointment Date/Time Appointment Type Appointme nt Facility Name Aug 05, 2023 04:00 PM AMBULATORY - PSYCHIATRY [place] [facility] [place] [facility] Aug 18, 2023 12:00 PM AMBULATORY - MEDICINE [facility] [place] [place] [facility] Sep 08, 2023 01:00 PM AMBULATORY - MEDICINE [facility] [place] [place] [facility] Sep 08, 2023 01:30 PM AMBULATORY - MEDICINE [facility] [place] [facility] Oct 06, 2023 09:00 AM AMBULATORY - MEDICINE [facility] [place] [facility] Oct 07, 2023 01:00 PM AMBULATORY - PSYCHIATRY [facility] [place] [facility] Oct 25, 2023 11:00 AM AMBULATORY - MEDICINE [facility] [place] [facility] Nov 09, 2023 09:00 AM AMBULATORY - MEDICINE [facility] [place] [facility] Nov 17, 2023 09:30 AM AMBULATORY - MEDICINE [facility] [place] [facility] Jan 03, 2024 11:00 AM AMBULATORY - PSYCHIATRY [place] [facility] [place] [facility] Jan 17, 2024 03:00 PM [facility] Social History: Smoking Status (Most current) and Tobacco Use (All prior to encounter date) This section includes the most current, and the historical, smoking and tobacco- related health factors from the [place] facility where the Encounter took place. Current Smoking Status This section includes the most current smoking, or tobacco-related health factor, from the [place] facility where the Encounter took place. Date/Time Current Smoking Status Comment Facil it Mar 31, 2023 11:00 AM [facility] Tobacco Use History This section includes a history of the smoking, or tobacco-related health factors, that were collected on or before the date of the Encounter. The data comes from the [place] facility where the Encounter took place. Date/Time Smoking Status/Tobac co Use Comment Facility Mar 31, 2023 11:00 AM VA-TOBACCO QUIT 1 TO < [address] [facility] [place] [facility] Mar 25, 2022 10:30 AM VA-TOBACCO NEVER USED [facility] [place] [facility] Mar 19, 2021 02:00 PM VA-TOBACCO FORMER USER [facility] [place] [facility] Mar 19, 2021 02:00 PM VA-TOBACCO QUIT < [address] [facility] [place] [facility] Sep 20, 2018 11:24 AM VA-TOBACCO USE DECLINED TO ANSWER [facility] [place] [facility] Oct 21, 2017 08:13 AM QUIT TOBACCO USE IN PAST YEAR [place] [facility] [place] [facility] Dec 30, 2016 08:28 AM QUIT TOBACCO USE 1-[address] [facility] [place] [facility] Jun 04, 2016 08:43 AM QUIT TOBACCO USE 1-[address] [facility] [place] [facility] May 17, 2015 08:45 AM QUIT TOBACCO USE 1-7 YEARS AGO quit [address] [facility] [place] [facility] Jun 07, 2014 09:25 AM QUIT TOBACCO USE 1-[address] [facility] [place] [facility] November 30, 2013 08:44 AM QUIT TOBACCO USE IN PAST YEAR [place] [facility] [place] [facility] May 22, 2013 10:10 AM QUIT TOBACCO USE IN PAST YEAR [place] [facility] [place] [facility] December 01, 2012 01:54 PM QUIT TOBACCO USE IN PAST YEAR [facility] [place] [facility] Jun 07, 2012 08:16 AM V1-PT DECLINES TOBACCO CESSATION MEDS [facility] [place] [facility] Jun 07, 2012 08:16 AM V1-PT THINKING ABOUT QUIT TOBACCO USE [facility] [place] [facility] Jan 05, 2012 09:00 AM CURRENT SMOKER intermittenly CT [facility] [place] [facility] Jan 05, 2012 09:00 AM V1-PT DECLINES REF TO TOBACCO CESS PRGM [facility] [place] [facility] Jan 05, 2012 09:00 AM V1-PT DECLINES TOBACCO CESSATION MEDS [facility] [place] [facility] Jan 05, 2012 09:00 AM V1-PT THINKING ABOUT QUIT TOBACCO USE [facility] [place] [facility] Feb 17, 2011 09:52 AM V1-PT DECLINES TOBACCO CESSATION MEDS [facility] [place] [facility] Feb 17, 2011 09:52 AM V1-PT THINKING ABOUT QUIT TOBACCO USE [facility] [place] [facility] Aug 13, 2010 11:31 AM QUIT TOBACCO USE IN PAST YEAR [place] [facility] [place] [facility] Feb 19, 2010 01:26 PM QUIT TOBACCO USE IN PAST YEAR [place] [facility] [place] [facility] Sep 13, 2009 11:04 AM QUIT TOBACCO USE IN PAST YEAR [place] [facility] [place] [facility] Feb 05, 2009 08:29 AM V1-PT DECLINES REF TO TOBACCO CESS PRGM [facility] [place] [facility] Feb 05, 2009 08:29 AM V1-PT DECLINES TOBACCO CESSATION MEDS [facility] [place] [facility] Feb 05, 2009 08:29 AM V1-PT THINKING ABOUT QUIT TOBACCO USE [facility] [place] [facility] Aug 22, 2008 09:04 AM QUIT TOBACCO USE IN PAST YEAR [place] [facility] [place] [facility] Mar 12, 2008 10:40 AM V1-PT DECLINES REF TO TOBACCO CESS PRGM [facility] [place] [facility] Mar 12, 2008 10:40 AM V1-PT DECLINES TOBACCO CESSATION MEDS [facility] [place] [facility] Mar 12, 2008 10:40 AM V1-PT NOT INTERESTED IN QUIT TOBACCO USE [facility] Mar 08, 2008 09:37 AM CURRENT SMOKER smokes one pack a day for about 10 years ago. [facility] Encounter Notes: All associated encounter notes This section contains the clinical notes associated to the Encounter. Date/Time Encounter Note(s) Provider Source Jul 27, 2023 02:20 PM PAIN MEDICINE OUTPATIENT NOTE: LOCAL TITLE: PAIN CLINIC NOTE STANDARD TITLE: PAIN MEDICINE OUTPATIENT NOTE DATE OF NOTE: JUL 27, 2023@14:20 ENTRY DATE: JUL 27, 2023@14:20:59 AUTHOR: GAL MADSEN EXP COSIGNER: URGENCY: STATUS: COMPLETED Patient presents unscheduled as a walk-in, requesting renewal of oxycodone. The prescription is due, last filled 33 days ago. She reports she took her last pill last night. She says it has been a bit tough to get by with decreased dose (last visit decreased from 50 mg to 40 mg per day), but she says she has been managing. She prefers not to decrease the dose again at this time. She notes feeling slightly off today and has a new rosacea type rash on the forehead. She also has some malar pattern erythema which she says is caused by her CPAP. She is not highly concerned about the rashes, and has had rashes before that have resolved. IMPRESSION: Longstanding chronic pain relatively stable. Mild facial rash of uncertain cause. PLAN: Oxycodone ordered for renewal today. She will contact PCP if rash is not resolving. /divya/ Gal Madsen MD STAFF PHYSICIAN Signed: 07/27/2023 14:28 GAL MADSEN [facility]
--- OUTSIDE RECORDS SUMMARY | 2024-07-05 03:22 | XMS_ITS ---
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 Organization [facility] [place] Address [address] [place] [id number] Care Team Providers Care Ball Mill Operator Name Role Phone ROMANA CASTILLO Primary [...] Patient's Relationship to Policy Garcia [facility] (MEDICAID) [facility] May 14, 2009 [id number] SAMPLE,ROCCO MOORE PATIENT [facility] May 14, 2009 [id number] SAMPLE,ROCCO MOORE PATIENT MEDICAID MEDICAID [facility] Jul 26, 2018 MEDICAI D [id number] SAMPLE,ROCCO MOORE PATIENT MEDICARE (WNR) MEDICARE (M) PART A November 24, 2015 PART A [id number] SAMPLE,ROCCO MOORE PATIENT MEDICARE (WNR) MEDICARE (M) PART B November 24, 2015 PART B [id number] [phone] [id number] ROCCO QUEZADA PATIENT Selected Encounter This section includes the information on record at [place] for the Encounter. Date/Time Encounter Type Encounter Description Reason Pro vider Source Jul 07, 2023 12:00 PM Outpatient Encounter COMMUNITY CARE CONSULT IHE Encounter Template Text not used by [place] Plan of Treatment: Future Appointments (+ 6 months) and Future Tests (+/- 45 days) The Plan of Treatment section includes future care activities for the patient from all [place] treatmentfacilities. This section includes future appointments and future orders which are active, pending or scheduled. Future Appointments This section includes appointments that were scheduled to occur 6 months from the date of the Encounter, up to a maximum of 20 appointments. The data comes from all [place] treatment facilities. Appointment Date/Time Appointment Type Appointme nt Facility Name Jul 08, 2023 11:00 AM AMBULATORY - MEDICINE [place] [facility] [place] [facility] Jul 15, 2023 08:00 AM AMBULATORY - MEDICINE [place] [facility] [place] [facility] Aug 05, 2023 04:00 PM AMBULATORY - PS[place]CHIATRY [place] [facility] [place] [facility] Aug 18, 2023 12:00 PM AMBULATORY - MEDICINE [place] [facility] [place] [facility] Sep 08, 2023 01:00 PM AMBULATORY - MEDICINE [place] [facility] [place] [facility] Sep 08, 2023 01:30 PM AMBULATORY - MEDICINE [place] [facility] [place] [facility] Oct 06, 2023 09:00 AM AMBULATORY - MEDICINE [place] [facility] [place] [facility] Oct 07, 2023 01:00 PM AMBULATORY - PSYCHIATRY [place] [facility] [place] [facility] Oct 25, 2023 11:00 AM AMBULATORY - MEDICINE [place] [facility] [place] [facility] Nov 09, 2023 09:00 AM AMBULATORY - MEDICINE [place] [facility] [place] [facility] Nov 17, 2023 09:30 AM AMBULATORY - MEDICINE [place] [facility] [place] [facility] Jan 03, 2024 11:00 AM AMBULATORY - PSYCHIATRY [place] [facility] [place] [facility] Social History: Smoking Status (Most current) and Tobacco Use (All prior to encounter date) This section includes the most current, and the historical, smoking and tobacco- related health factors from the [place] facility where the Encounter took place. Current Smoking Status This section includes the most current smoking, or tobacco-related health factor, from the [place] facility where the Encounter took place. Date/Time Current Smoking Status Comment Rosana humphrey Mar 31, 2023 11:00 AM VA-TOBACCO FORMER USER [place] [facility] [place] [facility] Tobacco Use History This section includes a history of the smoking, or tobacco-related health factors, that were collected on or before the date of the Encounter. The data comes from the [place] facility where the Encounter took place. Date/Time Smoking Status/Tobac co Use Comment Facility Mar 31, 2023 11:00 AM VA-TOBACCO QUIT 1 TO < 5 YRS [place] [facility] [place] [facility] Mar 25, 2022 10:30 AM VA-TOBACCO NEVER USED [place] [facility] [place] [facility] Mar 19, 2021 02:00 PM VA-TOBACCO FORMER USER [place] [facility] [place] [facility] Mar 19, 2021 02:00 PM VA-TOBACCO QUIT < 1 YEAR [place] [facility] [place] [facility] Sep 20, 2018 11:24 AM VA-TOBACCO USE DECLINED TO ANSWER [place] [facility] [place] [facility] Oct 21, 2017 08:13 AM QUIT TOBACCO USE IN PAST YEAR [place] [facility] [place] [facility] Dec 30, 2016 08:28 AM QUIT TOBACCO USE 1-7 YEARS AGO [place] [facility] [place] [facility] Jun 04, 2016 08:43 AM QUIT TOBACCO USE 1-7 YEARS AGO [place] [facility] [place] [facility] May 17, 2015 08:45 AM QUIT TOBACCO USE 1-7 YEARS AGO quit 2 years ago. [place] [facility] [place] [facility] Jun 07, 2014 09:25 AM QUIT TOBACCO USE 1-7 YEARS AGO [place] [facility] [place] [facility] November 30, 2013 08:44 AM QUIT TOBACCO USE IN PAST YEAR [place] [facility] [place] [facility] May 22, 2013 10:10 AM QUIT TOBACCO USE IN PAST YEAR [place] [facility] [place] [facility] December 01, 2012 01:54 PM QUIT TOBACCO USE IN PAST YEAR [place] [facility] [place] [facility] Jun 07, 2012 08:16 AM V1-PT DECLINES TOBACCO CESSATION MEDS [place] [facility] [place] [facility] Jun 07, 2012 08:16 AM V1-PT THINKING ABOUT QUIT TOBACCO USE [facility] [place] [facility] Jan 05, 2012 09:00 AM CURRENT SMOKER intermittenly [facility] [place] [facility] Jan 05, 2012 09:00 AM V1-PT DECLINES REF TO TOBACCO CESS PRGM [place] [facility] [place] [facility] Jan 05, 2012 09:00 AM V1-PT DECLINES TOBACCO CESSATION MEDS [facility] [place] [facility] Jan 05, 2012 09:00 AM V1-PT THINKING ABOUT QUIT TOBACCO USE [facility] [place] [facility] Feb 17, 2011 09:52 AM V1-PT DECLINES TOBACCO CESSATION MEDS [place] [facility] [place] [facility] Feb 17, 2011 09:52 AM V1-PT THINKING ABOUT QUIT TOBACCO USE [place] [facility] [place] [facility] Aug 13, 2010 11:31 AM QU[facility] [place] [facility] Feb 19, 2010 01:26 PM QUIT TOBACCO USE IN PAST YEAR [place] [facility] [place] [facility] Sep 13, 2009 11:04 AM QUIT TOBACCO USE [facility] [place] [facility] Feb 05, 2009 08:29 AM V1-PT DECLINES REF TO [facility]BACCO CESS [facility] [place] [facility] Feb 05, 2009 08:29 AM V1-PT DECLINES TOBACCO CESSATION [facility]S [facility] [place] [facility] Feb 05, 2009 08:29 AM V1-PT THINKING ABOUT QUIT TOBACCO USE [place] [facility] [place] [facility] Aug 22, 2008 09:04 AM QUIT TOBACCO USE IN PAST YEAR [place] [facility] [place] [facility] Mar 12, 2008 10:40 AM V1-PT DECLINES REF TO TOBACCO CESS PRGM [place] [facility] [place] [facility] Mar 12, 2008 10:40 AM V1-PT DECLINES TOBACCO CESSATION MEDS [place] [facility] [place] [facility] Mar 12, 2008 10:40 AM V1-PT NOT INTERESTED IN QUIT TOBACCO USE [place] [facility] [place] [facility] Mar 08, 2008 09:37 AM CURRENT SMOKER smokes one pack a day for about 10 years ago. [facility] [place] [facility] Encounter Notes: All associated encounter notes This section contains the clinical notes associated to the Encounter. Date/Time Encounter Note(s) Provider Source Jul 07, 2023 12:00 PM NONVA CONSULT: LOCAL TITLE: COMMUNITY CARE-CONSULT RESULT NOTE STANDARD TITLE: NONVA CONSULT DATE OF NOTE: JUL 07, 2023@12:00 ENTRY DATE: JUL 29, 2023@14:29:40 AUTHOR: DAYAN PAULINO EXP COSIGNER: URGENCY: STATUS: COMPLETED VistA Imaging - Scanned Document [facility]-OFFICE NOTES SCANNED DOCUMENT SIGNATURE NOT REQUIRED Electronically Filed: 07/29/2023 by: DAYAN PAULINO SPECIAL EDUCATION SUPERINTENDENT DAYAN PAULINO [facility]
--- OUTSIDE RECORDS SUMMARY | 2024-07-05 03:22 | XMS_ITS | Encounter Summary ---
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 Organization [facility] [place] Address [address] [place] [address] Care Team Providers Care Radar Tester Name Role Phone ROMANA CASTILLO Primary Care [...] Policy Garcia [facility] (MEDICAID) [place]ID [place] [facility]UMAN [facility] May 14, 2009 [id number] SAMPLE,ROCCO MOORE PATIENT [facility] May 14, 2009 [id number] SAMPLE,ROCCO MOORE PATIENT MEDICAID MEDICAID [facility] [place] Jul 26, 2018 MEDICAI D [id number] SAMPLE,ROCCO MOORE PATIENT MEDICARE (WNR) MEDICARE (M) PART A November 24, 2015 PART A [id number] SAMPLE,ROCCO MOORE PATIENT MEDICARE (WNR) MEDICARE (M) PART B November 24, 2015 PART B [id number] SAMPLE,ROCCO MOORE PATIENT Selected Encounter This section includes the information on record at [place] for the Encounter. Date/Time Encounter Type Encounter Description Reason Pro vider Source Jul 28, 2023 01:34 PM Outpatient Encounter ADMIN PAT ACTIVTIES (MASNONCT) IHE Encounter Template Text not used by [place] Plan of Treatment: Future Appointments (+ 6 months) and Future Tests (+/- 45 days) The Plan of Treatment section includes future care activities for the patient from all [place] treatmentfacilities. This section includes future appointments and future orders which are active, pending or scheduled. Future Appointments This section includes appointments that were scheduled to occur 6 months from the date of the Encounter, up to a maximum of 20 appointments. The data comes from all [place] treatment facilities. Appointment Date/Time Appointment Type Appointme nt Facility Name Aug 05, 2023 04:00 PM AMBULATORY - [place]IATRY [place] [facility] [place] [facility] Aug 18, 2023 12:00 PM AMBULATORY - MEDICINE [place] [facility] [place] [facility] Sep 08, 2023 01:00 PM AMBULATORY - MEDICINE [place] [facility] [place] [facility] Sep 08, 2023 01:30 PM AMBULATORY - MEDICINE [place] [facility] [place] [facility] Oct 06, 2023 09:00 AM AMBULATORY - MEDICINE [place] [facility] [place] [facility] Oct 07, 2023 01:00 PM AMBULATORY - PS[facility]CHIATRY [facility] [place] [facility] Oct 25, 2023 11:00 AM AMBULATORY - MEDICINE [place] [facility] [place] [facility] Nov 09, 2023 09:00 AM AMBULATORY - MEDICINE [place] [facility] [place] [facility] Nov 17, 2023 09:30 AM AMBULATORY [place] MEDICINE [place] [facility] [place] [facility] Jan 03, 2024 11:00 AM AMBULATORY - PS[place]CHIATRY [facility] [place] [facility] Jan 17, 2024 03:00 PM AMBULATORY - MEDICINE [place] [facility] [place] [facility] Jan 26, 2024 09:30 AM AMBULATORY [place] MEDICINE [place] [facility] [place] [facility] Social History: Smoking Status (Most current) and Tobacco Use (All prior to encounter date) This section includes the most current, and the historical, smoking and tobacco- related health factors from the [place] facility where the Encounter took place. Current Smoking Status This section includes the most current smoking, or tobacco-related health factor, from the [place] facility where the Encounter took place. Date/Time Current Smoking Status Comment Facil it Mar 31, 2023 11:00 AM [facility]AC[facility] Tobacco Use History This section includes a history of the smoking, or tobacco-related health factors, that were collected on or before the date of the Encounter. The data comes from the [place] facility where the Encounter took place. Date/Time Smoking Status/Tobac co Use Comment Facility Mar 31, 2023 11:00 AM VA-TOBACCO QUIT 1 TO < 5 YRS [facility] [place] [facility] Mar 25, 2022 10:30 AM VA-TOBACCO NEVER USED [place] [facility] [place] [facility] Mar 19, 2021 02:00 PM VA-TOBACCO [facility] Mar 19, 2021 02:00 PM VA-TOBACCO QUIT < 1 YEAR [facility] [place] [facility] Sep 20, 2018 11:24 AM VA-TOBACCO USE DECLINED TO ANSWER [facility] [place] [facility] Oct 21, 2017 08:13 AM QUIT TOBACCO USE IN PAST YEAR [facility] [place] [facility] Dec 30, 2016 08:28 AM QUIT TOBACCO USE 1-7 YEARS AGO [place] [facility] [place] [facility] Jun 04, 2016 08:43 AM QUIT TOBACCO USE 1-7 YEARS AGO [facility] [place] [facility] May 17, 2015 08:45 AM QUIT TOBACCO USE 1-7 YEARS AGO quit 2 years ago. [place] [facility] [place] [facility] Jun 07, 2014 09:25 AM QUIT TOBACCO USE 1-7 YEARS AGO [facility] [place] [facility] November 30, 2013 08:44 AM QUIT TOBACCO USE IN PAST YEAR [facility] [place] [facility] May 22, 2013 10:10 AM QUIT TOBACCO USE IN PAST YEAR [facility] [place] [facility] December 01, 2012 01:54 PM QUIT TOBACCO USE IN PAST YEAR [facility] [place] [facility] Jun 07, 2012 08:16 AM V1-PT DECLINES TOBACCO CESSATION MEDS [facility] [place] [facility] Jun 07, 2012 08:16 AM V1-PT THINKING ABOUT QUIT TOBACCO USE [facility] [place] [facility] Jan 05, 2012 09:00 AM CURRENT SMOKER intermittenly [facility] [place] [facility] Jan 05, 2012 09:00 AM V1-PT DECLINES REF TO TOBACCO CESS PRGM [facility] [place] [facility] Jan 05, 2012 09:00 AM V1-PT DECLINES TOBACCO CESSATION MEDS [facility] [place] [facility] Jan 05, 2012 09:00 AM V1-PT THINKING ABOUT QUIT TOBACCO USE [facility] [place] [facility] Feb 17, 2011 09:52 AM V1-PT DECLINES TOBACCO CESSATION MEDS [facility] [place] [facility] Feb 17, 2011 09:52 AM V1-PT THINKING ABOUT QUIT [facility] [place] [facility] Aug 13, 2010 11:31 AM QUIT TOBACCO USE IN PAST YEAR [facility] [place] [facility] Feb 19, 2010 01:26 PM QUIT TOBACCO USE IN PAST YEAR [facility] [place] [facility] Sep 13, 2009 11:04 AM QUIT TOBACCO USE IN PAST YEAR [place] [facility] [place] [facility] Feb 05, 2009 08:29 AM V1-PT DECLINES REF TO TOBACCO CESS [facility] [place] [facility] Feb 05, 2009 08:29 AM V1-PT DECLINES TOBACCO CESSATION MEDS [facility] [place] [facility] Feb 05, 2009 08:29 AM V1-PT THINKING ABOUT QUIT TOBACCO USE [facility] [place] [facility] Aug 22, 2008 09:04 AM QUIT TOBACCO USE IN PAST YEAR [place] [facility] [place] [facility] Mar 12, 2008 10:40 AM V1-PT DECLINES REF TO TOBACCO CESS PRGM [facility] [place] [facility] Mar 12, 2008 10:40 AM V1-PT DECLINES TOBACCO CESSATION MEDS [facility] [place] [facility] Mar 12, 2008 10:40 AM V1-PT NOT INTERESTED IN QUIT TOBACCO USE [facility] [place] [facility] Mar 08, 2008 09:37 AM CURRENT SMOKER smokes one pack a day for about 10 years ago. [facility] Encounter Notes: All associated encounter notes This section contains the clinical notes associated to the Encounter. Date/Time Encounter Note(s) Provider Source Jul 28, 2023 01:34 PM CARE COORDINATION HOME TELEHEALTH NOTE: LOCAL TITLE: HT NOTE STANDARD TITLE: CARE COORDINATION HOME TELEHEALTH NOTE DATE OF NOTE: JUL 28, 2023@13:34 ENTRY DATE: JUL 28, 2023@13:35:02 AUTHOR: SANTOSH VELEZ EXP COSIGNER: URGENCY: STATUS: COMPLETED Type of Telephone Encounter: This telehealth traffic signal technician called today Problem/Issue Reported: Ephraim is a nonresponder on the [employer] program Intervention: Called to assist with setting up Cmdr Flex hub with new replacement equipment/cord/scale etc. Ephraim states she has not received any of the replacement equipment. Verified in [facility] that equipment was received as well as a retrieval kit for faulty equipment being replaced. Ephraim requests to call back when she locates the equipment/determines if it has arrived. Follow-up: Will notify operations support coordinator who will monitor for [employer] responses. Length of call: 2 min /divya/ SANTOSH VELEZ Signed: 07/28/2023 13:38 SANTOSH VELEZ [facility]
--- OUTSIDE RECORDS SUMMARY | 2024-07-05 03:22 | XMS_ITS ---
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 Organization [place] Address [address] [place] [id number] Care Team Providers Care Etl Analyst Name Role Phone ROMANA CASTILLO Primary Care [...] Garcia's Name Patient's Relationship to Policy Garcia [facility] (MEDICAID) MEDICAID [facility] May 14, 2009 [id number] SAMPLE,ROCCO MOORE PATIENT [facility] MEDICAID [facility] HUMAN [facility] May 14, 2009 [id number] SAMPLE,ROCCO MOORE PATIENT MEDICAID MEDICAID [facility] ESTEF[facility] Jul 26, 2018 MEDICAI D [id number] SAMPLE,ROCCO MOORE PATIENT MEDICARE (WNR) MEDICARE (M) PART A November 24, 2015 PART A [id number] [phone] SAMPLE,ROCCO MOORE PATIENT MEDICARE (WNR) MEDICARE (M) PART B November 24, 2015 PART B [id number] ROCCO QUEZADA PATIENT Selected Encounter This section includes the information on record at [place] for the Encounter. Date/Time Encounter Type Encounter Description Reason Pro vider Source Aug 03, 2023 12:12 PM Outpatient Encounter PRIMARY CARE/MEDICINE IHE Encounter Template Text not used by [place] Plan of Treatment: Future Appointments (+ 6 months) and Future Tests (+/- 45 days) The Plan of Treatment section includes future care activities for the patient from all [place] [facility]. This section includes future appointments and future orders which are active, pending or scheduled. Future Appointments This section includes appointments that were scheduled to occur 6 months from the date of the Encounter, up to a maximum of 20 appointments. The data comes from all [place] treatment facilities. Appointment Date/Time Appointment Type Appointme nt Facility Name Aug 05, 2023 04:00 PM AMBULATORY - PS[place]CHIATRY [place] [facility] [place] [facility] Aug 18, 2023 12:00 PM AMBULATORY - MEDICINE [place] [facility] [place] [facility] Sep 08, 2023 01:00 PM AMBULATORY - MEDICINE [place] [facility] [place] [facility] Sep 08, 2023 01:30 PM AMBULATORY - MEDICINE [place] [facility] [place] [facility] Oct 06, 2023 09:00 AM AMBULATORY - MEDICINE [place] [facility] [place] [facility] Oct 07, 2023 01:00 PM AMBULATORY - PSYCHIATRY [place] [facility] [place] [facility] Oct 25, 2023 11:00 AM AMBULATORY - MEDICINE [place] [facility] [place] [facility] Nov 09, 2023 09:00 AM AMBULATORY - MEDICINE [place] [facility] [place] [facility] Nov 17, 2023 09:30 AM AMBULATORY - MEDICINE [place] [facility] [place] [facility] Jan 03, 2024 11:00 AM AMBULATORY - PSYCHIATRY [place] [facility] [place] [facility] Jan 17, 2024 03:00 PM AMBULATORY - MEDICINE [place] [facility] [place] [facility] Jan 26, 2024 09:30 AM AMBULATORY - MEDICINE [place] [facility] [place] [facility] Social History: Smoking Status (Most current) and Tobacco Use (All prior to encounter date) This section includes the most current, and the historical, smoking and tobacco- related health factors from the [place] facility where the Encounter took place. Current Smoking Status This section includes the most current smoking, or tobacco-related health factor, from the [place] facility where the Encounter took place. Date/Time Current Smoking Status Comment Rosana humphrey Mar 31, 2023 11:00 AM VA-TOBACCO [facility] Tobacco Use History This section includes a history of the smoking, or tobacco-related health factors, that were collected on or before the date of the Encounter. The data comes from the [place] facility where the Encounter took place. Date/Time Smoking Status/Tobac co Use Comment Facility Mar 31, 2023 11:00 AM VA-TOBACCO QUIT 1 TO < 5 YRS [facility] [place] [facility] Mar 25, 2022 10:30 AM VA-TOBACCO NEVER USED [place] [facility] [place] [facility] Mar 19, 2021 02:00 PM VA-TOBACCO FORMER USER [place] [facility] [place] [facility] Mar 19, 2021 02:00 PM VA-TOBACCO QUIT < [facility] [place] [facility] Sep 20, 2018 11:24 AM VA-TOBACCO USE DECLIN[facility]SW[facility] [place] [facility] Oct 21, 2017 08:13 AM QUIT TOBACCO USE IN PAST YEAR [facility] [place] [facility] Dec 30, 2016 08:28 AM QUIT TOBACCO USE 1-7 YEARS AGO [facility] [place] [facility] Jun 04, 2016 08:43 AM QUIT TOBACCO USE 1-7 YEARS AGO [facility] [place] [facility] May 17, 2015 08:45 AM QUIT TOBACCO USE 1-7 YEARS AGO quit 2 years ago. [place] [facility] [place] [facility] Jun 07, 2014 09:25 AM QUIT TOBACCO USE 1-7 YEARS AGO [facility] [place] [facility] November 30, 2013 08:44 AM QUIT TOBACCO USE IN PAST YEAR [facility] [place] [facility] May 22, 2013 10:10 AM QUIT TOBACCO USE IN PAST YEAR [place] [facility] [place] [facility] December 01, 2012 01:54 PM QUIT TOBACCO USE [facility] [place] [facility] Jun 07, 2012 08:16 AM V1-PT DECLINES TOBACCO CESSATION MEDS [place] [facility] [place] [facility] Jun 07, 2012 08:16 AM V1-PT THINKING ABOUT QUIT TOBACCO USE [facility] [place] [facility] Jan 05, 2012 09:00 AM CURRENT SMOKER intermittenly [facility] [place] [facility] Jan 05, 2012 09:00 AM V1-PT DECLINES REF TO TOBACCO CESS [facility] [place] [facility] Jan 05, 2012 09:00 AM V1-PT DECLINES TOBACCO CESSATION MEDS [facility] [place] [facility] Jan 05, 2012 09:00 AM V1-PT THINKING ABOUT QUIT TOBACCO USE [facility] [place] [facility] Feb 17, 2011 09:52 AM V1-PT DECLINES TOBACCO CESSATION MEDS [facility] [place] [facility] Feb 17, 2011 09:52 AM V1-PT THINKING ABOUT QUIT [facility]AC[facility] [place] [facility] Aug 13, 2010 11:31 AM QUIT TOBACCO USE IN PAST YEAR [facility] [place] [facility] Feb 19, 2010 01:26 PM QUIT TOBACCO USE IN PAST YEAR [facility] [place] [facility] Sep 13, 2009 11:04 AM QUIT TOBACCO USE IN PAST [facility] [place] [facility] Feb 05, 2009 08:29 AM V1-PT DECLINES REF TO TOBACCO CESS [facility] Feb 05, 2009 08:29 AM V1-PT DECLINES TOBACCO CESSATION MEDS [facility] [place] [facility] Feb 05, 2009 08:29 AM V1-PT THINKING ABOUT QUIT TOBACCO USE [place] [facility] [place] [facility] Aug 22, 2008 09:04 AM QUIT TOBACCO USE IN PAST [facility] [place] [facility] Mar 12, 2008 10:40 AM V1-PT DECLINES REF TO TOBACCO CESS PRGM [place] [facility] [place] [facility] Mar 12, 2008 10:40 AM V1-PT DECLINES TOBACCO CESSATION MEDS [facility] [place] [facility] Mar 12, 2008 10:40 AM V1-PT NOT INTERESTED IN QUIT TOBACCO [facility] [place] [facility] Mar 08, 2008 09:37 AM CURRENT SMOKER smokes one pack a day for about 10 years ago. [facility] Encounter Notes: All associated encounter notes This section contains the clinical notes associated to the Encounter. Date/Time Encounter Note(s) Provider Source Aug 03, 2023 12:12 PM PRIMARY CARE TELEP SY ENCOUNTER NOTE: LOCAL TITLE: TELEPHONE NOTE/PRIMARY CARE STANDARD TITLE: PRIMARY CARE TELEPHONE ENCOUNTER NOTE DATE OF NOTE: AUG 03, 2023@12:12 ENTRY DATE: AUG 03, 2023@12:12:19 AUTHOR: ROSA WOLFE EXP COSIGNER: URGENCY: STATUS: COMPLETED MSA lm to call back to r/s 08/04 PCP cc. /divya/ ROSA WOLFE [employer] Assistant Signed: 08/03/2023 12:12 ROSA WOLFE [facility]
--- OUTSIDE RECORDS SUMMARY | 2024-07-05 03:24 | XMS_ITS | Encounter Summary ---
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 Organization [place] Address [address] [place] [id number] Care Team Providers Care Ophthalmic Tech Name Role Phone ROMANA CASTILLO Primary Care [...] Policy Garcia [facility] (MEDICAID) [facility] May 14, 2009 [id number] SAMPLE,ROCCO MOORE PATIENT [facility] MEDICAID [facility] May 14, 2009 [id number] SAMPLE,ROCCO MOORE PATIENT MEDICAID MEDICAID [facility] [place] Jul 26, 2018 MEDICAI D [id number] SAMPLE,ROCCO MOORE PATIENT MEDICARE (WNR) MEDICARE (M) PART B November 24, 2015 PART B [id number] SAMPLE,ROCCO MOORE PATIENT MEDICARE (WNR) MEDICARE (M) PART A November 24, 2015 PART A [id number] [phone] ROCCO QUEZADA PATIENT Selected Encounter This section includes the information on record at [place] for the Encounter. Date/Time Encounter Type Encounter Description Reason Pro vider Source Aug 11, 2023 09:53 AM Outpatient Encounter TELEPHONE PRIMARY CARE IHE [...] Appointment Type Appointme nt Facility Name Aug 18, 2023 12:00 PM AMBULATORY - MEDICINE [place] [facility] [place] [facility] Sep 08, 2023 01:00 PM AMBULATORY - MEDICINE [place] [facility] [place] [facility] Sep 08, 2023 01:30 PM AMBULATORY - MEDICINE SD [facility] [place] [facility] Oct 06, 2023 09:00 AM AMBULATORY - MEDICINE SD [facility] [place] [facility] Oct 07, 2023 01:00 PM AMBULATORY - PSYCHIATRY [place] [facility] [place] [facility] Oct 25, 2023 11:00 AM AMBULATORY - MEDICINE SD [facility] [place] [facility] Nov 09, 2023 09:00 AM AMBULATORY - MEDICINE SD [facility] [place] [facility] Nov 17, 2023 09:30 AM AMBULATORY - MEDICINE SD [facility] [place] [facility] Jan 03, 2024 11:00 AM AMBULATORY - PSYCHIATRY [place] [facility] [place] [facility] Jan 17, 2024 03:00 PM AMBULATORY - MEDICINE SD [facility] [place] [facility] Jan 26, 2024 09:30 AM AMBULATORY - MEDICINE SD [facility] [place] [facility] Feb 03, 2024 03:00 PM AMBULATORY - MEDICINE SD [facility] [place] [facility] Social History: Smoking Status (Most [...] 31, 2023 11:00 AM VA-TOBACCO FORMER USER [place] [facility] [place] [facility] Tobacco Use History This section includes a history of the smoking, or tobacco-related health factors, that were collected on or before the date of the Encounter. The data comes from the [place] facility where the Encounter took place. Date/Time Smoking Status/Tobac co Use Comment Facility Mar 31, 2023 11:00 AM VA-TOBACCO QUIT 1 TO < 5 YRS [place] [facility] [place] [facility] Mar 25, 2022 10:30 AM VA-TOBACCO NEVER USED [place] [facility] [place] [facility] Mar 19, 2021 02:00 PM VA-TOBACCO FORMER USER [place] [facility] [place] [facility] Mar 19, 2021 02:00 PM VA-TOBACCO QUIT < 1 YEAR [place] [facility] [place] [facility] Sep 20, 2018 11:24 AM VA-TOBACCO USE DECLINED TO ANSWER [place] [facility] [place] [facility] Oct 21, 2017 08:13 AM QUIT TOBACCO USE IN PAST YEAR [place] [facility] [place] [facility] Dec 30, 2016 08:28 AM QUIT TOBACCO USE 1-7 YEARS AGO [place] [facility] [place] [facility] Jun 04, 2016 08:43 AM QUIT TOBACCO USE 1-7 YEARS AGO [place] [facility] [place] [facility] May 17, 2015 08:45 AM QUIT TOBACCO USE 1-7 YEARS AGO quit 2 years ago. [place] [facility] [place] [facility] Jun 07, 2014 09:25 AM QUIT TOBACCO USE 1-7 YEARS AGO [place] [facility] [place] [facility] November 30, 2013 08:44 AM QUIT TOBACCO USE IN PAST YEAR [place] [facility] [place] [facility] May 22, 2013 10:10 AM QUIT TOBACCO USE IN PAST YEAR [facility] [place] [facility] December 01, 2012 01:54 PM QUIT TOBACCO USE IN PAST YEAR [facility] [place] [facility] Jun 07, 2012 08:16 AM V1-PT DECLINES TOBACCO CESSATION MEDS [place] [facility] [place] [facility] Jun 07, 2012 08:16 AM V1-PT THINKING ABOUT QUIT TOBACCO USE [facility] [place] [facility] Jan 05, 2012 09:00 AM CURRENT SMOKER intermittenly [facility] [place] [facility] Jan 05, 2012 09:00 AM V1-PT DECLINES REF TO TOBACCO CESS PRGM [place] [facility] [place] [facility] Jan 05, 2012 09:00 AM V1-PT DECLINES TOBACCO CESSATION MEDS [facility] [place] [facility] Jan 05, 2012 09:00 AM V1-PT THINKING ABOUT QUIT TOBACCO USE [facility] [place] [facility] Feb 17, 2011 09:52 AM V1-PT DECLINES TOBACCO CESSATION MEDS [place] [facility] [place] [facility] Feb 17, 2011 09:52 AM V1-PT THINKING ABOUT QUIT TOBACCO USE [place] [facility] [place] [facility] Aug 13, 2010 11:31 AM QUIT TOBACCO [facility] [place] [facility] Feb 19, 2010 01:26 PM QUIT TOBACCO USE IN PAST YEAR [place] [facility] [place] [facility] Sep 13, 2009 11:04 AM QUIT TOBACCO USE [facility]ST [facility] [place] [facility] Feb 05, 2009 08:29 AM V1-PT DECLINES REF TO TOBACCO CESS [facility] [place] [facility] Feb 05, 2009 08:29 AM V1-PT DECLINES TOBACCO CESSATION [facility]S [facility] [place] [facility] Feb 05, 2009 08:29 AM V1-PT THINKING ABOUT QUIT TOBACCO USE [place] [facility] [place] [facility] Aug 22, 2008 09:04 AM QUIT TOBACCO USE IN PAST YEAR [facility] [place] [facility] Mar 12, 2008 10:40 AM V1-PT DECLINES REF TO TOBACCO CESS PRGM [facility] [place] [facility] Mar 12, 2008 10:40 AM V1-PT DECLINES TOBACCO CESSATION MEDS [place] [facility] [place] [facility] Mar 12, 2008 10:40 AM V1-PT NOT INTERESTED IN QUIT TOBACCO USE [place] [facility] [place] [facility] Mar 08, 2008 09:37 AM CURRENT SMOKER smokes one pack a day for about 10 years ago. [facility] Encounter Notes: All associated encounter notes This section contains the clinical notes associated to the Encounter. Date/Time Encounter Note(s) Provider Source Aug 12, 2023 12:22 PM ADDENDUM: LOCAL TITLE: Addendum STANDARD TITLE: ADDENDUM DATE OF NOTE: AUG 12, 2023@12:22:22 ENTRY DATE: AUG 12, 2023@12:22:23 AUTHOR: GEORGE FLORES SA COSIGNER: URGENCY: STATUS: COMPLETED Sherrill Called and requested a refill of her oxygen tank be delivered to [facility] in [place]. does not have the room number yet. She stated that someone can just call the hotel and let them know she has a reservation. /divya/ GEORGE FLORES Signed: 08/12/2023 12:27 Receipt Acknowledged By: 08/12/2023 14:39 /divya/ ROSALVA HARMON BA, CUSTOMER SERVICE ADVISOR, RPMITCHEL RESPIRATORY THERAPIST ========= --- Original Document --- 08/11/23 TELEPHONE NOTE/SPECIALTY CLINIC: Sherrill called requesting oxygen to be used while she is away for the weekend. She is asking for a liquid oxygen tank for while she is gone. Phone number on file has been verified. /divya/ JAYRO BELLA CASH APPLICATIONS SPECIALIST Signed: 08/11/2023 09:55 Receipt Acknowledged By: * AWAITING SIGNATURE * DEVORAH CROWDER 08/11/2023 16:17 /divya/ СВЕТЛАНА DHILLON RESPIRATORY THERAPIST * AWAITING SIGNATURE * ROHAN CROW 08/11/2023 ADDENDUM STATUS: COMPLETED Called and left message with to call and give travel details. Will add the oxygen coordinator. /divya/ СВЕТЛАНА DHILLON RESPIRATORY THERAPIST Signed: 08/11/2023 16:17 Receipt Acknowledged By: 08/12/2023 14:39 /divya/ ROSALVA HARMON BA, CUSTOMER SERVICE ADVISOR, RPMITCHEL RESPIRATORY THERAPIST GEORGE FLORES [facility] Aug 11, 2023 04:15 PM ADDENDUM: LOCAL TITLE: Addendum STANDARD TITLE: ADDENDUM DATE OF NOTE: AUG 11, 2023@16:15:31 ENTRY DATE: AUG 11, 2023@16:15:32 AUTHOR: СВЕТЛАНА DHILLON EXP COSIGNER: URGENCY: STATUS: COMPLETED Called and left message with to call and give travel details. Will add the oxygen coordinator. /divya/ СВЕТЛАНА DHILLON RESPIRATORY THERAPIST Signed: 08/11/2023 16:17 Receipt Acknowledged By: 08/12/2023 14:39 /divya/ ROSALVA HARMON BA, CUSTOMER SERVICE ADVISOR, AMADO RESPIRATORY THERAPIST ========= --- Original Document --- 08/11/23 TELEPHONE NOTE/SPECIALTY CLINIC: called requesting oxygen to be used while she is away for the weekend. She is asking for a liquid oxygen tank for while she is gone. Phone number on file has been verified. /divya/ JAYRO BELLA CASH APPLICATIONS SPECIALIST Signed: 08/11/2023 09:55 Receipt Acknowledged By: * AWAITING SIGNATURE * DEVORAH CROWDER 08/11/2023 16:17 /divya/ СВЕТЛАНА DHILLON RESPIRATORY THERAPIST * AWAITING SIGNATURE * ROHAN CROW 08/12/2023 ADDENDUM STATUS: COMPLETED Sherrill Called and requested a refill of her oxygen tank be delivered to [facility] in [place]. does not have the room number yet. She stated that someone can just call the hotel and let them know she has a reservation. /divya/ GEORGE FLORES Signed: 08/12/2023 12:27 Receipt Acknowledged By: 08/12/2023 14:39 /isabella HARMON BA, CUSTOMER SERVICE ADVISOR, RPMITCHEL RESPIRATORY THERAPIST СВЕТЛАНА DHILLON [facility] Aug 11, 2023 09:53 AM TELEPHONE ENCOUNTE R NOTE: LOCAL TITLE: TELEPHONE NOTE/SPECIALTY CLINIC STANDARD TITLE: TELEPHONE ENCOUNTER NOTE DATE OF NOTE: AUG 11, 2023@09:53 ENTRY DATE: AUG 11, 2023@09:53:40 AUTHOR: JAYRO BELLA EXP COSIGNER: URGENCY: STATUS: COMPLETED TELEPHONE NOTE/SPECIALTY CLINIC Has ADDENDA called requesting oxygen to be used while she is away for the weekend. She is asking for a liquid oxygen tank for while she is gone. Phone number on file has been verified. /divya/ JAYRO BELLA CASH APPLICATIONS SPECIALIST Signed: 08/11/2023 09:55 Receipt Acknowledged By: 08/16/2023 08:13 /es/ DEVORAH CROWDER,CUSTOMER SERVICE ADVISOR RESPIRATORY THERAPIST 08/11/2023 16:17 /divya/ СВЕТЛАНА DHILLON RESPIRATORY THERAPIST 08/13/2023 11:03 /es/ ROHAN CROW, CREDIT CARD SPECIALIST RESPIRATORY THERAPIST 08/11/2023 ADDENDUM STATUS: COMPLETED Called and left message with to call and give travel details. Will add the oxygen coordinator. /divya/ СВЕТЛАНА DHILLON RESPIRATORY THERAPIST Signed: 08/11/2023 16:17 Receipt Acknowledged By: 08/12/2023 14:39 /divya/ ROSALVA HARMON BA, CUSTOMER SERVICE ADVISOR, RPFT RESPIRATORY THERAPIST 08/12/2023 ADDENDUM STATUS: COMPLETED Called and requested a refill of her oxygen tank be delivered to [facility] in [place]. does not have the room number yet. She stated that someone can just call the hotel and let them know she has a reservation. /es/ GEORGE FLORES Signed: 08/12/2023 12:27 Receipt Acknowledged By: 08/12/2023 14:39 /divya/ ROSALVA HARMON BA, CUSTOMER SERVICE ADVISOR, RPFT RESPIRATORY THERAPIST JAYRO BELLA [facility]
--- OUTSIDE RECORDS SUMMARY | 2024-07-05 03:25 | XMS_ITS | Encounter Summary ---
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 Organization [place] Address [address] [place] [id number] Care Team Providers Care Fitness Specialist Name Role Phone ROMANA CASTILLO Primary Care [...] Garcia's Name Patient's Relationship to Policy Garcia [facility] (MEDICAID[facility] May 14, 2009 [id number] SAMPLE,ROCCO MOORE PATIENT [facility]ICAID [facility] May 14, 2009 [id number] SAMPLE,ROCCO MOORE PATIENT MEDICAID MEDICAID [facility] Jul 26, 2018 MEDICAI D [id number] SAMPLE,ROCCO MOORE PATIENT MEDICARE (WNR) MEDICARE (M) PART B November 24, 2015 PART B [id number] SAMPLE,ROCCO MOORE PATIENT MEDICARE (WNR) MEDICARE (M) PART A November 24, 2015 PART A [id number] ROCCO QUEZADA PATIENT Selected Encounter This section includes the information on record at [place] for the Encounter. Date/Time Encounter Type Encounter Description Reason Pro vider Source Aug 17, 2023 09:07 AM Outpatient Encounter PAIN CLINIC IHE Encounter [...] 18, 2023 12:00 PM AMBULATORY - MEDICINE [place] [facility] [place] [facility] Sep 08, 2023 01:00 PM AMBULATORY - MEDICINE [place] [facility] [place] [facility] Sep 08, 2023 01:30 PM AMBULATORY - MEDICINE ND [facility] [place] [facility] Oct 06, 2023 09:00 AM AMBULATORY - MEDICINE ND [facility] [place] [facility] Oct 07, 2023 01:00 PM AMBULATORY - PSYCHIATRY [facility] [place] [facility] Oct 25, 2023 11:00 AM AMBULATORY - MEDICINE [facility] [place] [facility] Nov 09, 2023 09:00 AM AMBULATORY - MEDICINE VA C [facility] [place] [facility] Nov 17, 2023 09:30 AM AMBULATORY - MEDICINE ND C [facility] [place] [facility] Jan 03, 2024 11:00 AM AMBULATORY - PSYCHIATRY [facility] [place] [facility] Jan 17, 2024 03:00 PM AMBULATORY - MEDICINE ND [facility] [place] [facility] Jan 26, 2024 09:30 AM AMBULATORY - MEDICINE ND C [facility] [place] [facility] Feb 03, 2024 03:00 PM AMBULATORY - MEDICINE VA C [facility] [place] [facility] Feb 14, 2024 11:00 AM AMBULATORY - PSYCHIATRY ND [facility] [place] [facility] Social History: Smoking Status (Most current) [...] 31, 2023 11:00 AM VA-TOBACCO FORMER USER [facility] Tobacco Use History This section includes a history of the smoking, or tobacco-related health factors, that were collected on or before the date of the Encounter. The data comes from the [place] facility where the Encounter took place. Date/Time Smoking Status/Tobac co Use Comment Facility Mar 31, 2023 11:00 AM VA-TOBACCO QUIT 1 TO < 5 YRS [place] [facility] [place] [facility] Mar 25, 2022 10:30 AM VA-TOBACCO NEVER USED ND [facility] [place] [facility] Mar 19, 2021 02:00 PM VA-TOBACCO FORMER USER [place] [facility] [place] [facility] Mar 19, 2021 02:00 PM VA-TOBACCO QUIT < 1 YEAR ND [facility] [place] [facility] Sep 20, 2018 11:24 AM VA-TOBACCO USE DECLINED TO ANSWER ND [facility] [place] [facility] Oct 21, 2017 08:13 AM QUIT TOBACCO USE IN PAST YEAR ND [facility] [place] [facility] Dec 30, 2016 08:28 AM QUIT TOBACCO USE 1-7 YEARS AGO ND [facility] [place] [facility] Jun 04, 2016 08:43 AM QUIT TOBACCO USE 1-7 YEARS AGO ND [facility] [place] [facility] May 17, 2015 08:45 AM QUIT TOBACCO USE 1-7 YEARS AGO quit 2 years ago. [place] [facility] [place] [facility] Jun 07, 2014 09:25 AM QUIT TOBACCO USE 1-7 YEARS AGO ND [facility] [place] [facility] November 30, 2013 08:44 AM QUIT TOBACCO USE IN PAST YEAR ND [facility] [place] [facility] May 22, 2013 10:10 AM QUIT TOBACCO USE IN PAST YEAR ND [facility] [place] [facility] December 01, 2012 01:54 PM QUIT TOBACCO USE IN PAST YEAR ND [facility]TR [place] [facility] Jun 07, 2012 08:16 AM V1-PT DECLINES TOBACCO CESSATION MEDS [facility] [place] [facility] Jun 07, 2012 08:16 AM V1-PT THINKING ABOUT QUIT TOBACCO USE [facility] [place] [facility] Jan 05, 2012 09:00 AM CURRENT SMOKER intermittenly [facility] [place] [facility] Jan 05, 2012 09:00 AM V1-PT DECLINES REF TO TOBACCO CESS PRGM [facility] [place] [facility] Jan 05, 2012 09:00 AM V1-PT DECLINES TOBACCO CESSATION MEDS [facility] [place] [facility] Jan 05, 2012 09:00 AM V1-PT THINKING ABOUT QUIT TOBACCO USE VA [facility]TR [place] [facility] Feb 17, 2011 09:52 AM V1-PT DECLINES TOBACCO CESSATION MEDS [facility] [place] [facility] Feb 17, 2011 09:52 AM V1-PT THINKING ABOUT QUIT TOBACCO USE VA [facility] [place] [facility] Aug 13, 2010 11:31 AM QUIT TOBACCO USE IN PAST YEAR VA [facility] [place] [facility] Feb 19, 2010 01:26 PM QUIT TOBACCO USE IN PAST YEAR ND [facility]TR [place] [facility] Sep 13, 2009 11:04 AM QUIT TOBACCO USE IN PAST YEAR ND [facility]TR [place] [facility] Feb 05, 2009 08:29 AM V1-PT DECLINES RE[facility]AC[facility] [place] [facility] Feb 05, 2009 08:29 AM V1-PT DECLINES TOBACCO CESSATION MEDS [facility] [place] [facility] Feb 05, 2009 08:29 AM V1-PT THINKING ABOUT QUIT TOBACCO USE [facility] [place] [facility] Aug 22, 2008 09:04 AM QUIT TOBACCO USE IN PAST YEAR ND CNTR [place] [facility] Mar 12, 2008 10:40 AM V1-PT DECLINES REF TO TOBACCO CESS PRGM [facility] [place] [facility] Mar 12, 2008 10:40 AM V1-PT DECLINES TOBACCO CESSATION MEDS [facility] [place] [facility] Mar 12, 2008 10:40 AM V1-PT NOT INTERESTED IN QUIT TOBACCO USE [facility] [place] [facility] Mar 08, 2008 09:37 AM CURRENT SMOKER smokes one pack a day for about 10 years ago. [facility] Encounter Notes: All associated encounter notes This section contains the clinical notes associated to the Encounter. Date/Time Encounter Note(s) Provider Source Aug 17, 2023 09:07 AM TELEPHONE ENCOUNTE R NOTE: LOCAL TITLE: TELEPHONE NOTE/SPECIALTY CLINIC STANDARD TITLE: TELEPHONE ENCOUNTER NOTE DATE OF NOTE: AUG 17, 2023@09:07 ENTRY DATE: AUG 17, 2023@09:08:37 AUTHOR: BEULAH LOPEZ EXP COSIGNER: URGENCY: STATUS: COMPLETED Call attempt was made to remind vet that they have a FTF appt with the Pain clinic on 08/18/2023 @ 11. No answer, lvm. Location was confirmed. /divya/ BEULAH LOPEZ ADVANCED PRODUCT ARCHITECT Signed: 08/17/2023 09:08 BEULAH LOPEZ [facility]
--- OUTSIDE RECORDS SUMMARY | 2024-07-05 03:25 | XMS_ITS | Encounter Summary ---
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 ns Affairs [place] Organization Department of [place] Address [address] [place] [address] Care Team Providers Care Digester Operator Helper Name Role Phone ROMANA CASTILLO Primary Care [...] Garcia's Name Patient's Relationship to Policy Garcia [facility] (MEDICAID) [place]ID [place] May 14, 2009 [id number] SAMPLE,ROCCO MOORE PATIENT [facility]ICAID [facility] May 14, 2009 [id number] SAMPLE,ROCCO MOORE PATIENT MEDICAID MEDICAID [facility] [place] Jul 26, 2018 MEDICAI D [id number] SAMPLE,ROCCO MOORE PATIENT MEDICARE (WNR) MEDICARE (M) PART A November 24, 2015 PART A [id number] SAMPLE,ROCCO MOORE PATIENT MEDICARE (WNR) MEDICARE (M) PART B November 24, 2015 PART B [id number] SAMPLE,ROCCO MOORE PATIENT Selected Encounter This section includes the information on record at [place] for the Encounter. Date/Time Encounter Type Encounter Description Reason Pro vider Source Aug 11, 2023 08:45 PM Outpatient Encounter ADMIN PAT ACTIVTIES (MASNONCT) IHE Encounter Template Text not used by DC Plan of Treatment: Future Appointments (+ 6 months) and Future Tests (+/- 45 days) The Plan of Treatment section includes future care activities for the patient from all [place] treatmentfacilities. This section includes future appointments and [...] - MEDICINE [place] C [place] [facility] Sep 08, 2023 01:00 PM AMBULATORY - MEDICINE [place] C [place] [facility] Sep 08, 2023 01:30 PM AMBULATORY - MEDICINE DC C [place] [facility] Oct 06, 2023 09:00 AM AMBULATORY - MEDICINE DC C [place] [place] [facility] Oct 07, 2023 01:00 PM AMBULATORY - PSYCHIATRY [place] [facility] [place] [facility] Oct 25, 2023 11:00 AM AMBULATORY - MEDICINE [place] C [place] [place] [facility] Nov 09, 2023 09:00 AM AMBULATORY - MEDICINE DC C [place] [place] [facility] Nov 17, 2023 09:30 AM AMBULATORY - MEDICINE DC C [facility] [place] [facility] Jan 03, 2024 11:00 AM AMBULATORY - PSYCHIATRY [place] [facility] [place] [facility] Jan 17, 2024 03:00 PM AMBULATORY - MEDICINE DC C [place] [facility] Jan 26, 2024 09:30 AM AMBULATORY - MEDICINE DC C [place] [place] [facility] Feb 03, 2024 03:00 PM AMBULATORY - MEDICINE [place] C [facility] [place] [facility] Social History: Smoking Status (Most current) and [...] 31, 2023 11:00 AM [facility] Tobacco Use History This section includes a history of the smoking, or tobacco-related health factors, that were collected on or before the date of the Encounter. The data comes from the [place] facility where the Encounter took place. Date/Time Smoking Status/Tobac co Use Comment Facility Mar 31, 2023 11:00 AM VA-TOBACCO QUIT 1 TO < 5 YRS [facility] [place] [facility] Mar 25, 2022 10:30 AM VA-TOBACCO NEVER USED [place] CNTR [place] [facility] Mar 19, 2021 02:00 PM VA-TOBACCO FORMER USER [facility] Mar 19, 2021 02:00 PM VA-TOBACCO QUIT < 1 YEAR [facility] [place] [facility] Sep 20, 2018 11:24 AM VA-TOBACCO USE DECLINED TO ANSWER [facility] [place] [facility] Oct 21, 2017 08:13 AM QUIT TOBACCO USE IN PAST YEAR [facility] [place] [facility] Dec 30, 2016 08:28 AM QUIT TOBACCO USE 1-7 YEARS AGO [place] CNTR [place] [facility] Jun 04, 2016 08:43 AM QUIT TOBACCO USE 1-7 YEARS AGO [facility] [place] [facility] May 17, 2015 08:45 AM QUIT TOBACCO USE 1-7 YEARS AGO quit 2 years ago. [place] [facility] [facility] Jun 07, 2014 09:25 AM QUIT TOBACCO USE 1-7 YEARS AGO [facility] [place] [facility] November 30, 2013 08:44 AM QUIT TOBACCO USE IN PAST YEAR [facility] [place] [facility] May 22, 2013 10:10 AM QUIT TOBACCO USE IN PAST YEAR [facility] [place] [facility] December 01, 2012 01:54 PM QUIT TOBACCO USE IN PAST YEAR [facility] [place] [facility] Jun 07, 2012 08:16 AM V1-PT DECLINES TOBACCO CESSATION MEDS [facility] [place] [facility] Jun 07, 2012 08:16 AM V1-PT THINKING ABOUT QUIT TOBACCO USE [facility] [place] [facility] Jan 05, 2012 09:00 AM CURRENT SMOKER intermittenly [facility] [place] [facility] Jan 05, 2012 09:00 AM V1-PT DECLINES REF TO TOBACCO CESS PRGM [facility] [place] [facility] Jan 05, 2012 09:00 AM V1-PT DECLINES TOBACCO CESSATION MEDS [facility] [place] [facility] Jan 05, 2012 09:00 AM V1-PT THINKING ABOUT QUIT TOBACCO USE VA [facility]TR [place] [facility] Feb 17, 2011 09:52 AM V1-PT DECLINES TOBACCO CESSATION MEDS [facility] [place] [facility] Feb 17, 2011 09:52 AM V1-PT THINKING ABOUT QUIT [facility]ACCO [facility] [place] [facility] Aug 13, 2010 11:31 AM QUIT TOBACCO USE IN PAST YEAR [facility] [place] [facility] Feb 19, 2010 01:26 PM QUIT TOBACCO USE IN PAST YEAR [facility] [place] [facility] Sep 13, 2009 11:04 AM QUIT TOBACCO USE IN PAST YEAR [place] CNTR [place] [facility] Feb 05, 2009 08:29 AM V1-PT DECLINES REF TO TOBACCO CESS [facility] [place] [facility] Feb 05, 2009 08:29 AM V1-PT DECLINES TOBACCO CESSATION MEDS [facility] [place] [facility] Feb 05, 2009 08:29 AM V1-PT THINKING ABOUT QUIT TOBACCO USE [facility] [place] [facility] Aug 22, 2008 09:04 AM QUIT TOBACCO USE IN PAST YEAR [place] CNTR [place] [facility] Mar 12, 2008 10:40 AM V1-PT DECLINES REF TO TOBACCO CESS PRGM [facility] [place] [facility] Mar 12, 2008 10:40 AM V1-PT DECLINES TOBACCO CESSATION MEDS [facility] [place] [facility] Mar 12, 2008 10:40 AM V1-PT NOT INTERESTED IN QUIT TOBACCO USE [facility] [place] [facility] Mar 08, 2008 09:37 AM CURRENT SMOKER smokes one pack a day for about 10 years ago. [place] [facility] Encounter Notes: All associated encounter notes This section contains the clinical notes associated to the Encounter. Date/Time Encounter Note(s) Provider Source Aug 12, 2023 08:55 AM ADDENDUM: LOCAL TITLE: Addendum STANDARD TITLE: ADDENDUM DATE OF NOTE: AUG 12, 2023@08:55:55 ENTRY DATE: AUG 12, 2023@08:55:56 AUTHOR: GAL MADSEN COSIGNER: URGENCY: STATUS: COMPLETED Forwarding to PACT team regarding management of BP meds. /divya/ Gal Madsen MD STAFF PHYSICIAN Signed: 08/12/2023 08:56 Receipt Acknowledged By: 08/12/2023 08:58 /divya/ ROMANA CASTILLO MD PHYSICIAN 08/12/2023 09:09 /es/ OLGA GREEN, MSN, RN, CNL PRIMARY CARE TEAM NURSE ====== --- Original Document --- 08/11/23 V1 PHARMACY CUSTOMER CARE MEDICATION RENEWAL: Date: Jul Division: [facility] referred by Pharmacy Call Center for medication renewal: Non-controlled/maintenan ce medication Medications requested: Rx #: [id number] DILTIAZEM (EQV-TIAZAC) 180MG 24HR CAP Defer to specialty clinic To be mailed . Please review and renew if appropriate. *This note was generated by [employer] [facility] Customer [facility]. If you have any questions or need assistance, do not contact this author. Please refer all questions to your local, on-site pharmacy departments. /divya/ VICTORINO CHENEY CPhT [employer]ed [employer] Manager, [place]/ Pharmacy Customer Care Signed: 08/11/2023 20:49 Receipt Acknowledged By: 08/12/2023 08:55 /divya/ Gal Madsen MD STAFF PHYSICIAN 08/12/2023 09:09 /divya/ OLGA GREEN, MSN, RN, CNL PRIMARY CARE TEAM NURSE GAL MADSEN [facility] Aug 11, 2023 08:45 PM PHARMACY NOTE: LOCAL TITLE: V1 PHARMACY CUSTOMER CARE MEDICATION RENEWAL STANDARD TITLE: PHARMACY NOTE DATE OF NOTE: AUG 11, 2023@20:45 ENTRY DATE: AUG 11, 2023@20:45:40 AUTHOR: VICTORINO CHENEY EXP COSIGNER: URGENCY: STATUS: COMPLETED V1 PHARMACY CUSTOMER CARE MEDICATION RENEWAL Has ADDENDA Date: Jul Division: [facility] referred by Pharmacy Call Center for medication renewal: Non-controlled/maintenan ce medication Medications requested: Rx #: [id number] DILTIAZEM (EQV-TIAZAC) 180MG 24HR CAP Defer to specialty clinic To be mailed . Please review and renew if appropriate. *This note was generated by [employer] [facility] Customer [facility]. If you have any questions or need assistance, do not contact this author. Please refer all questions to your local, on-site pharmacy departments. /divya/ VICTORINO CHENEY [facility] [employer] Manager, [place]/ Pharmacy Customer Care Signed: 08/11/2023 20:49 Receipt Acknowledged By: 08/12/2023 08:55 /divya/ Gal Madsen MD STAFF PHYSICIAN 08/12/2023 09:09 /divya/ OLGA GREEN, MSN, RN, CNL PRIMARY CARE TEAM NURSE 08/12/2023 ADDENDUM STATUS: COMPLETED Forwarding to PACT team regarding management of BP meds. /divya/ Gal Madsen MD STAFF PHYSICIAN Signed: 08/12/2023 08:56 Receipt Acknowledged By: 08/12/2023 08:58 /divya/ ROMANA CASTILLO MD PHYSICIAN 08/12/2023 09:09 /divya/ OLGA GREEN, MSN, RN, CNL PRIMARY CARE TEAM NURSE VICTORINO CHENEY [facility]
--- OUTSIDE RECORDS SUMMARY | 2024-07-05 03:26 | XMS_ITS | Encounter Summary ---
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 Address [address] [place] [id number] Care Team Providers Care Matchbook Assembler Name Role Phone ROMANA CASTILLO Primary [...] Garcia's Name Patient's Relationship to Policy Garcia [facility] (MEDICAID) MEDICAID [facility] May 14, 2009 [id number] SAMPLE,ROCCO MOORE PATIENT [facility] MEDICAID [facility] May 14, 2009 [id number] SAMPLE,ROCCO MOORE PATIENT MEDICAID MEDICAID [facility] EST[facility] Jul 26, 2018 MEDICAI D [id number] SAMPLE,ROCOC MOORE PATIENT MEDICARE (WNR) MEDICARE (M) PART A November 24, 2015 PART A [id number] SAMPLE,ROCCO MOORE PATIENT MEDICARE (WNR) MEDICARE (M) PART B November 24, 2015 PART B [id number] ROCCO QUEZADA PATIENT Selected Encounter This section includes the information on record at [place] for the Encounter. Date/Time Encounter Type Encounter Description Reason Pro vider Source Aug 20, 2023 03:30 PM Outpatient Encounter TELEPHONE/MEDICINE IHE Encounter Template Text not used by [place] Plan of Treatment: Future Appointments (+ 6 months) and Future Tests (+/- 45 days) The Plan of Treatment section includes future care activities for the patient from all [place] treatmentfacilities. This section includes future appointments and future orders which are active, pending or scheduled. Future Appointments This section includes appointments that were scheduled to occur 6 months from the date of the Encounter, up to a maximum of 20 appointments. The data comes from all [place] treatment facilities. Appointment Date/Time Appointment Type Appointme nt Facility Name Sep 08, 2023 01:00 PM [place]UL[place]ORY [place]INE [place] [facility] [place] [facility] Sep 08, 2023 01:30 PM [place]ULATORY [place]ICINE [place] [facility] [place] [facility] Oct 06, 2023 09:00 AM AMBULATORY [place]ICINE [place] [facility] [place] [facility] Oct 07, 2023 01:00 PM AMBULATORY - PS[place]CHIATRY [place] [facility] [place] [facility] Oct 25, 2023 11:00 AM AMBULATORY [place]ICINE [place] [facility] [place] [facility] Nov 09, 2023 09:00 AM AMBULATORY [place] MEDICINE [place] [facility] [place] [facility] Nov 17, 2023 09:30 AM AMBULATORY [place]ICINE [place] [facility] [place] [facility] Jan 03, 2024 11:00 AM AMBULATORY - PS[place]IATRY [place] [facility] [place] [facility] Jan 17, 2024 03:00 PM AMBULATORY - MEDICINE [place] [facility] [place] [facility] Jan 26, 2024 09:30 AM AM[place]ULATORY [place]ICINE [place] [facility] [place] [facility] Feb 03, 2024 03:00 PM AM[place]ULATORY [place]ICINE [place] [facility] [place] [facility] Feb 14, 2024 11:00 AM AMBULATORY - PS[place]IATRY [place] [facility] [place] [facility] Social History: Smoking Status (Most current) and Tobacco Use (All prior to encounter date) This section includes the most current, and the historical, smoking and tobacco- related health factors from the [place] facility where the Encounter took place. Current Smoking Status This section includes the most current smoking, or tobacco-related health factor, from the [place] facility where the Encounter took place. Date/Time Current Smoking Status Comment Rosana humphrey Mar 31, 2023 11:00 AM VA-TOBACCO FORMER USER [place] [facility] [place] [facility] Tobacco Use History This section includes a history of the smoking, or tobacco-related health factors, that were collected on or before the date of the Encounter. The data comes from the [place] facility where the Encounter took place. Date/Time Smoking Status/Tobac co Use Comment Facility Mar 31, 2023 11:00 AM VA-TOBACCO QUIT 1 TO < 5 YRS [place] [facility] [place] [facility] Mar 25, 2022 10:30 AM VA-TOBACCO NEVER USED [place] [facility] [place] [facility] Mar 19, 2021 02:00 PM VA-TOBACCO FORMER USER [place] [facility] [place] [facility] Mar 19, 2021 02:00 PM VA-TOBACCO QUIT < 1 YEAR [place] [facility] [place] [facility] Sep 20, 2018 11:24 AM VA-TOBACCO USE DECLINED TO ANSWER [place] [facility] [place] [facility] Oct 21, 2017 08:13 AM QUIT TOBACCO USE IN PAST YEAR [place] [facility] [place] [facility] Dec 30, 2016 08:28 AM QUIT TOBACCO USE 1-7 YEARS AGO [place] [facility] [place] [facility] Jun 04, 2016 08:43 AM QUIT TOBACCO USE 1-7 YEARS AGO [place] [facility] [place] [facility] May 17, 2015 08:45 AM QUIT TOBACCO USE 1-7 YEARS AGO quit 2 years ago. [place] [facility] [place] [facility] Jun 07, 2014 09:25 AM QUIT TOBACCO USE 1-7 YEARS AGO [place] [facility] [place] [facility] November 30, 2013 08:44 AM QUIT TOBACCO USE IN PAST YEAR [place] [facility] [place] [facility] May 22, 2013 10:10 AM QUIT TOBACCO USE IN PAST YEAR [place] [facility] [place] [facility] December 01, 2012 01:54 PM QUIT TOBACCO USE IN PAST YEAR [place] [facility] [place] [facility] Jun 07, 2012 08:16 AM V1-PT DECLINES TOBACCO CESSATION MEDS [place] [facility] [place] [facility] Jun 07, 2012 08:16 AM V1-PT THINKING ABOUT QUIT TOBACCO USE [facility] [place] [facility] Jan 05, 2012 09:00 AM CURRENT SMOKER intermittenly [facility] [place] [facility] Jan 05, 2012 09:00 AM V1-PT DECLINES REF TO TOBACCO CESS PRGM [place] [facility] [place] [facility] Jan 05, 2012 09:00 AM V1-PT DECLINES TOBACCO CESSATION MEDS [facility] [place] [facility] Jan 05, 2012 09:00 AM V1-PT THINKING ABOUT QUIT TOBACCO USE [facility] [place] [facility] Feb 17, 2011 09:52 AM V1-PT DECLINES TOBACCO CESSATION MEDS [place] [facility] [place] [facility] Feb 17, 2011 09:52 AM V1-PT THINKING ABOUT QUIT TOBACCO USE [place] [facility] [place] [facility] Aug 13, 2010 11:31 AM QUIT TOBACCO USE IN PAST YEAR [facility] [place] [facility] Feb 19, 2010 01:26 PM QUIT TOBACCO USE IN PAST YEAR [place] [facility] [place] [facility] Sep 13, 2009 11:04 AM QUIT TOBACCO USE IN PAST YEAR [facility] [place] [facility] Feb 05, 2009 08:29 AM V1-PT DECLINES REF TO TOBACCO CESS PRGM [facility] [place] [facility] Feb 05, 2009 08:29 AM V1-PT DECLINES TOBACCO CESSATION MEDS [facility] [place] [facility] Feb 05, 2009 08:29 AM V1-PT THINKING ABOUT QUIT TOBACCO USE [place] [facility] [place] [facility] Aug 22, 2008 09:04 AM QUIT TOBACCO USE IN PAST YEAR [place] [facility] [place] [facility] Mar 12, 2008 10:40 AM V1-PT DECLINES REF TO TOBACCO CESS PRGM [place] [facility] [place] [facility] Mar 12, 2008 10:40 AM V1-PT DECLINES TOBACCO CESSATION MEDS [place] [facility] [place] [facility] Mar 12, 2008 10:40 AM V1-PT NOT INTERESTED IN QUIT TOBACCO USE [place] [facility] [place] [facility] Mar 08, 2008 09:37 AM CURRENT SMOKER smokes one pack a day for about 10 years ago. [facility] [place] [facility] Encounter Notes: All associated encounter notes This section contains the clinical notes associated to the Encounter. Date/Time Encounter Note(s) Provider Source Aug 20, 2023 03:30 PM CARE COORDINATION HOME TELEHEALTH NOTE: LOCAL TITLE: HT NOTE STANDARD TITLE: CARE COORDINATION HOME TELEHEALTH NOTE DATE OF NOTE: AUG 20, 2023@15:30 ENTRY DATE: AUG 20, 2023@15:30:57 AUTHOR: ROCHELLE NAVAS EXP COSIGNER: URGENCY: STATUS: COMPLETED was enrolled in the [employer] weight management program 03/2023; was changed to the L2 weight management program last month due to failure to log on but expressed desire to participate in the program. She feels that she has done so, though no transmissions have come through. [employer] contact representative attempted to contact her several times to walk her through the process; she did not answer the phone. [place] was a no-show for 08/17/23 [facility] appointment scheduled with her and did not answer the phone or respond to VM left for her. Attempted to call again this date; left again. Will discharge her from the program if no response by 09/02/23. /divya/ Rochelle Navas RD, LDN Staff Dietitian Signed: 08/20/2023 15:39 ROCHELLE NAVAS [facility]
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
--- OUTSIDE RECORDS SUMMARY | 2024-07-05 03:26 | XMS_ITS | Encounter Summary ---
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 Organization [facility] [place] Address [address] [place] [address] Care Team Providers Care Cold Roll Packer Sheet Iron Name Role Phone ROMANA CASTILLO Primary Care [...] Garcia's Name Patient's Relationship to Policy Garcia [facility] (MEDICAID) [facility] May 14, 2009 [id number] SAMPLE,ROCCO MOORE PATIENT [facility]ID [facility] May 14, 2009 [id number] SAMPLE,ROCCO MOORE PATIENT MEDICAID MEDICAID [facility] ST[facility] EST[facility] Jul 26, 2018 MEDICAI D [id number] SAMPLE,ROCCO MOORE PATIENT MEDICARE (WNR) MEDICARE (M) PART B November 24, 2015 PART B [id number] SAMPLE,ROCCO MOORE PATIENT MEDICARE (WNR) MEDICARE (M) PART A November 24, 2015 PART A [id number] [phone] ROCCO QUEZADA PATIENT Selected Encounter This section includes the information on record at [place] for the Encounter. Date/Time Encounter Type Encounter Description Reason Pro vider Source Aug 27, 2023 04:48 PM Outpatient Encounter TELEPHONE PRIMARY CARE IHE Encounter [...] - MEDICINE [place] [facility] [place] [facility] Sep 08, 2023 01:30 PM AM[place] [facility] [place] [facility] Oct 06, 2023 09:00 AM AM[place]ULATORY [place] [facility] [place] [facility] Oct 07, 2023 01:00 PM AMBULATORY [place]RY [place] [facility] [place] [facility] Oct 25, 2023 11:00 AM AM[place]ULATORY [place] [facility] [place] [facility] Nov 09, 2023 09:00 AM AM[place]ULATORY [place] [facility] [facility] Nov 17, 2023 09:30 AM AM[place]ULATORY [place] [facility] [place] [facility] Jan 03, 2024 11:00 AM AMBULATORY [place] [facility] [place] [facility] Jan 17, 2024 03:00 PM AMBULATORY [place] [facility] [place] [facility] Jan 26, 2024 09:30 AM [place]UL[place]ORY [place] [facility] [facility] Feb 03, 2024 03:00 PM AM[place]UL[place]ORY [place] [facility] [place] [facility] Feb 14, 2024 11:00 AM AMBULATORY [place] [facility] [place] [facility] Social History: Smoking Status (Most [...] 31, 2023 11:00 AM VA-TOBACCO FORMER [facility]ER [place] [facility] Tobacco Use History This section includes a history of the smoking, or tobacco-related health factors, that were collected on or before the date of the Encounter. The data comes from the [place] facility where the Encounter took place. Date/Time Smoking Status/Tobac co Use Comment Facility Mar 31, 2023 11:00 AM VA-TOBACCO QUIT 1 TO < 5 YRS [place] [facility] [place] [facility] Mar 25, 2022 10:30 AM VA-TOBACCO NEVER USED [place] [facility] [place] [facility] Mar 19, 2021 02:00 PM VA-TOBACCO FORMER USER [place] [facility] [place] [facility] Mar 19, 2021 02:00 PM VA-TOBACCO QUIT < 1 YEAR [place] [facility] [place] [facility] Sep 20, 2018 11:24 AM VA-TOBACCO USE DECLINED TO ANSWER [place] [facility] [place] [facility] Oct 21, 2017 08:13 AM QUIT TOBACCO USE IN PAST YEAR [place] [facility] [place] [facility] Dec 30, 2016 08:28 AM QUIT TOBACCO USE 1-7 YEARS AGO [place] [facility] [place] [facility] Jun 04, 2016 08:43 AM QUIT TOBACCO USE 1-7 YEARS AGO [place] [facility] [place] [facility] May 17, 2015 08:45 AM QUIT TOBACCO USE 1-7 YEARS AGO quit 2 years ago. [place] [facility] [place] [facility] Jun 07, 2014 09:25 AM QUIT TOBACCO USE 1-7 YEARS AGO [place] [facility] [facility] November 30, 2013 08:44 AM QUIT TOBACCO USE IN PAST YEAR [place] [facility] [place] [facility] May 22, 2013 10:10 AM QUIT TOBACCO USE IN PAST YEAR [place] [facility] [place] [facility] December 01, 2012 01:54 PM QUIT TOBACCO USE IN PAST YEAR [place] [facility] [place] [facility] Jun 07, 2012 08:16 AM V1-PT DECLINES TOBACCO CESSATION MEDS [place] [facility] [place] [facility] Jun 07, 2012 08:16 AM V1-PT THINKING ABOUT QUIT TOBACCO USE [place] [facility] [place] [facility] Jan 05, 2012 09:00 AM CURRENT SMOKER intermittenly [place] [facility] [place] [facility] Jan 05, 2012 09:00 AM V1-PT DECLINES REF [facility] [place] [facility] Jan 05, 2012 09:00 AM V1-PT DECLINES TOBACCO CESSATION MEDS [place] [facility] [place] [facility] Jan 05, 2012 09:00 AM V1-PT THINKING ABOUT QUIT TOBACCO USE [place] [facility] [place] [facility] Feb 17, 2011 09:52 AM V1-PT DECLINES TOBACCO CESSATION MEDS [place] [facility] [place] [facility] Feb 17, 2011 09:52 AM V1-PT THINKING ABOUT QUIT [facility]ACCO [facility] [place] [facility] Aug 13, 2010 11:31 AM QUIT TOBACCO USE [facility] PAST [facility] [place] [facility] Feb 19, 2010 01:26 PM QUIT TOBACCO USE IN PAST YEAR [place] [facility] [place] [facility] Sep 13, 2009 11:04 AM QUIT TOBACCO USE [facility]ST [facility] [place] [facility] Feb 05, 2009 08:29 AM V1-PT DECLINES REF TO TOBACCO CESS [facility] [place] [facility] Feb 05, 2009 08:29 AM V1-PT DECLINES TOBACCO [facility]ESSATION [facility] [place] [facility] Feb 05, 2009 08:29 AM V1-PT THINKING ABOUT QUIT TOBACCO USE [place] [facility] [place] [facility] Aug 22, 2008 09:04 AM QUIT TOBACCO USE IN PAST YEAR [place] [facility] [facility] Mar 12, 2008 10:40 AM V1-PT DECLINES REF TO TOBACCO CESS PRGM [place] [facility] [facility] Mar 12, 2008 10:40 AM V1-PT DECLINES TOBACCO CESSATION MEDS [place] [facility] [place] [facility] Mar 12, 2008 10:40 AM V1-PT NOT INTERESTED IN QUIT [facility]BACCO USE [facility] [place] [facility] Mar 08, 2008 09:37 AM CURRENT SMOKER smokes one pack a day for about 10 years ago. [facility] Encounter Notes: All associated encounter notes This section contains the clinical notes associated to the Encounter. Date/Time Encounter Note(s) Provider Source Aug 27, 2023 04:48 PM RESPIRATORY THERAP Y NOTE: LOCAL TITLE: RESPIRATORY THERAPY NOTE(BLANK) STANDARD TITLE: RESPIRATORY THERAPY NOTE DATE OF NOTE: AUG 27, 2023@16:48 ENTRY DATE: AUG 27, 2023@16:48:48 AUTHOR: ROSALVA HARMON EXP COSIGNER: URGENCY: STATUS: COMPLETED [place] uses oxygen through the [place]. Her prescription is due for renewal but this story writer was unable to contact to verify. Her prescription will be renewed temporarily for 3 months. /divya/ ROSALVA HARMON BA, TUNNEL ELASTIC OPERATOR ZIGZAG, RPFT RESPIRATORY THERAPIST Signed: 08/27/2023 16:52 ROSALVA HARMON [facility]
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
--- OUTSIDE RECORDS SUMMARY | 2024-07-05 03:26 | XMS_ITS | Encounter Summary ---
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 Organization [place] Address [address] [place] [id number] Care Team Providers Care Marble Machine Tender Name Role Phone ROMANA CASTILLO Primary Care [...] Garcia's Name Patient's Relationship to Policy Garcia [facility] (MEDICAID) [facility] May 14, 2009 [id number] SAMPLE,ROCCO MOORE PATIENT [facility] MEDICAID [facility] May 14, 2009 [id number] SAMPLE,ROCCO MOORE PATIENT MEDICAID MEDICAID [facility] Jul 26, 2018 MEDICAI D [id number] SAMPLE,ROCCO MOORE PATIENT MEDICARE (WNR) MEDICARE (M) PART A November 24, 2015 PART A [id number] SAMPLE,ROCCO MOORE PATIENT MEDICARE (WNR) MEDICARE (M) PART B November 24, 2015 PART B [id number] [phone] ROCCO QUEZADA PATIENT Selected Encounter This section includes the information on record at [place] for the Encounter. Date/Time Encounter Type Encounter Description Reason Pro vider Source Aug 24, 2023 03:56 PM Outpatient Encounter TELEPHONE PRIMARY CARE IHE Encounter Template Text not used by [place] Plan of Treatment: Future Appointments (+ 6 months) and Future Tests (+/- 45 days) The Plan of Treatment section includes future care activities for the patient from all [place] treatmentfacilities. This section includes future appointments and future orders which are active, pending or scheduled. Future Appointments This section includes appointments that were scheduled to occur 6 months from the date of the Encounter, up to a maximum of 20 appointments. The data comes from all [place] treatment facilities. Appointment Date/Time Appointment Type Appointme nt Facility Name Sep 08, 2023 01:00 PM AMBULATORY - MEDICINE [place] [facility] [place] [facility] Sep 08, 2023 01:30 PM AMBULATORY - MEDICINE [place] [facility] [place] [facility] Oct 06, 2023 09:00 AM AMBULATORY - MEDICINE [place] [facility] [place] [facility] Oct 07, 2023 01:00 PM AMBULATORY - PSYCHIATRY [place] [facility] [place] [facility] Oct 25, 2023 11:00 AM AMBULATORY - MEDICINE [place] [facility] [place] [facility] Nov 09, 2023 09:00 AM AMBULATORY - MEDICINE [place] [facility] [place] [facility] Nov 17, 2023 09:30 AM AMBULATORY - MEDICINE [place] [facility] [place] [facility] Jan 03, 2024 11:00 AM AMBULATORY - PSYCHIATRY [place] [facility] [place] [facility] Jan 17, 2024 03:00 PM AMBULATORY - MEDICINE [place] [facility] [place] [facility] Jan 26, 2024 09:30 AM AMBULATORY - MEDICINE [place] [facility] [place] [facility] Feb 03, 2024 03:00 PM AMBULATORY - MEDICINE [place] [facility] [place] [facility] Feb 14, 2024 11:00 AM AMBULATORY - PSYCHIATRY [place] [facility] [place] [facility] Social History: Smoking Status (Most current) and Tobacco Use (All prior to encounter date) This section includes the most current, and the historical, smoking and tobacco- related health factors from the [place] facility where the Encounter took place. Current Smoking Status This section includes the most current smoking, or tobacco-related health factor, from the [place] facility where the Encounter took place. Date/Time Current Smoking Status Comment Rosana humphrey Mar 31, 2023 11:00 AM VA-TOBACCO FORMER USER [place] [facility] [place] [facility] Tobacco Use History This section includes a history of the smoking, or tobacco-related health factors, that were collected on or before the date of the Encounter. The data comes from the [place] facility where the Encounter took place. Date/Time Smoking Status/Tobac co Use Comment Facility Mar 31, 2023 11:00 AM VA-TOBACCO QUIT 1 TO < 5 YRS [facility] [place] [facility] Mar 25, 2022 10:30 AM VA-TOBACCO NEVER USED [place] [facility] [place] [facility] Mar 19, 2021 02:00 PM VA-TOBACCO FORMER USER [place] [facility] [place] [facility] Mar 19, 2021 02:00 PM VA-TOBACCO QUIT < 1 YEAR [facility] [place] [facility] Sep 20, 2018 11:24 AM VA-TOBACCO USE DECLINED TO ANSWER [place] [facility] [place] [facility] Oct 21, 2017 08:13 AM QUIT TOBACCO USE IN PAST YEAR [facility] [place] [facility] Dec 30, 2016 08:28 AM QUIT TOBACCO USE 1-7 YEARS AGO [facility] [place] [facility] Jun 04, 2016 08:43 AM QUIT TOBACCO USE 1-7 YEARS AGO [facility] [place] [facility] May 17, 2015 08:45 AM QUIT TOBACCO USE 1-7 YEARS AGO quit 2 years ago. [place] [facility] [place] [facility] Jun 07, 2014 09:25 AM QUIT TOBACCO USE 1-7 YEARS AGO [facility] [place] [facility] November 30, 2013 08:44 AM QUIT TOBACCO USE IN PAST YEAR [facility] [place] [facility] May 22, 2013 10:10 AM QUIT TOBACCO USE IN PAST YEAR [facility] [place] [facility] December 01, 2012 01:54 PM QUIT TOBACCO USE IN PAST YEAR [facility] [place] [facility] Jun 07, 2012 08:16 AM V1-PT DECLINES TOBACCO CESSATION MEDS [place] [facility] [place] [facility] Jun 07, 2012 08:16 AM V1-PT THINKING ABOUT QUIT TOBACCO USE [facility] [place] [facility] Jan 05, 2012 09:00 AM CURRENT SMOKER intermittenly [facility] [place] [facility] Jan 05, 2012 09:00 AM V1-PT DECLINES REF TO TOBACCO CESS PRGM [facility] [place] [facility] Jan 05, 2012 09:00 AM V1-PT DECLINES TOBACCO CESSATION MEDS [facility] [place] [facility] Jan 05, 2012 09:00 AM V1-PT THINKING ABOUT QUIT TOBACCO USE [facility] [place] [facility] Feb 17, 2011 09:52 AM V1-PT DECLINES TOBACCO CESSATION MEDS [place] [facility] [place] [facility] Feb 17, 2011 09:52 AM V1-PT THINKING ABOUT QUIT TOBACCO USE [place] [facility] [place] [facility] Aug 13, 2010 11:31 AM QU[facility] [place] [facility] Feb 19, 2010 01:26 PM QUIT TOBACCO USE IN PAST YEAR [place] [facility] [place] [facility] Sep 13, 2009 11:04 AM QUIT TOBACCO [facility] [place] [facility] Feb 05, 2009 08:29 AM V1-PT DECLINES REF TO TOBACCO CESS [facility] [place] [facility] Feb 05, 2009 08:29 AM V1-PT DECLINES TOBACCO CESSATION [facility]S [facility] [place] [facility] Feb 05, 2009 08:29 AM V1-PT THINKING ABOUT QUIT TOBACCO USE [facility] [place] [facility] Aug 22, 2008 09:04 AM QUIT TOBACCO USE IN PAST YEAR [facility] [place] [facility] Mar 12, 2008 10:40 AM V1-PT DECLINES REF TO TOBACCO CESS PRGM [place] [facility] [place] [facility] Mar 12, 2008 10:40 AM V1-PT DECLINES TOBACCO CESSATION MEDS [facility] [place] [facility] Mar 12, 2008 10:40 AM V1-PT NOT INTERESTED IN QUIT TOBACCO USE [facility] [place] [facility] Mar 08, 2008 09:37 AM CURRENT SMOKER smokes one pack a day for about 10 years ago. [facility] [place] [facility] Encounter Notes: All associated encounter notes This section contains the clinical notes associated to the Encounter. Date/Time Encounter Note(s) Provider Source Aug 24, 2023 03:56 PM TELEPHONE ENCOUNTE R NOTE: LOCAL TITLE: TELEPHONE NOTE/SPECIALTY CLINIC STANDARD TITLE: TELEPHONE ENCOUNTER NOTE DATE OF NOTE: AUG 24, 2023@15:56 ENTRY DATE: AUG 24, 2023@15:56:53 AUTHOR: JAYRO BELLA EXP COSIGNER: URGENCY: STATUS: COMPLETED called and is requesting the following CPAP supplies: small mask Address and phone confirmed as correct. /divya/ JAYRO BELLA EMERGENCY RESPONSE OFFICER Signed: 08/24/2023 15:57 Receipt Acknowledged By: 08/30/2023 07:20 /divya/ DEVORAH CROWDER,TELETYPE ADJUSTER RESPIRATORY THERAPIST 08/25/2023 10:47 /divya/ ROHAN CROW, SILK SNAPPER RESPIRATORY THERAPIST for [facility] 08/25/2023 10:46 /divya/ ROHAN CROW, SILK SNAPPER RESPIRATORY THERAPIST JAYRO BELLA [facility]
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
--- OUTSIDE RECORDS SUMMARY | 2024-07-05 03:26 | XMS_ITS ---
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 [facility] [place] Address [address] [place] [address] Care Team Providers Care Director Pharmaceutical Name Role Phone ROMANA CASTILLO Primary Care [...] Garcia's Name Patient's Relationship to Policy Garcia [facility] (MEDICAID) [facility]ID [facility] May 14, 2009 [id number] SAMPLE,ROCCO MOORE PATIENT [facility] MEDICAID [facility] May 14, 2009 [id number] SAMPLE,ROCCO MOORE PATIENT MEDICAID MEDICAID [facility] Jul 26, 2018 MEDICAI D [id number] SAMPLE,ROCCO MOORE PATIENT MEDICARE (WNR) MEDICARE (M) PART B November 24, 2015 PART B [id number] SAMPLE,ROCCO MOORE PATIENT MEDICARE (WNR) MEDICARE (M) PART A November 24, 2015 PART A [id number] SAMPLE,ROCCO MOORE PATIENT Selected Encounter This section includes the information on record at [place] for the Encounter. Date/Time Encounter Type Encounter Description Reason Provider Source Aug 25, 2023 10:48 AM COLLJ & INTERPJ DATA EA 30 D TELEPHONE/MEDICIN E ICD-10-CM G47.30 Sleep apnea, unspecified ROHAN CROW Edwin Encounter Template Text not used by [place] Assessments - Encounter Diagnoses This section includes the primary and secondary diagnoses documented for the Encounter. Date/Time Primary/Secondary Diagnosis Diagnosis Name Provider Source Aug 25, 2023 10:48 AM PRIMARY Sleep apnea, unspecified ROHAN CROW [place] [facility] [place] [facility] Plan of Treatment: Future Appointments [...] 08, 2023 01:00 PM AMBULATORY - MEDICINE [place] [facility] [place] [facility] Sep 08, 2023 01:30 PM AMBULATORY - MEDICINE [place] [facility] [facility] Oct 06, 2023 09:00 AM AMBULATORY - MEDICINE [place] [facility] [facility] Oct 07, 2023 01:00 PM AMBULATORY - PSYCHIATRY [place] [facility] [place] [facility] Oct 25, 2023 11:00 AM AMBULATORY - MEDICINE [place] [facility] [facility] Nov 09, 2023 09:00 AM AMBULATORY - MEDICINE [place] [facility] [place] [facility] Nov 17, 2023 09:30 AM AMBULATORY - MEDICINE [place] [facility] [facility] Jan 03, 2024 11:00 AM AMBULATORY - PSYCHIATRY [place] [facility] [place] [facility] Jan 17, 2024 03:00 PM AMBULATORY - MEDICINE [place] [facility] [facility] Jan 26, 2024 09:30 AM AMBULATORY - MEDICINE [place] [facility] [facility] Feb 03, 2024 03:00 PM AMBULATORY - MEDICINE [place] [facility] [facility] Feb 14, 2024 11:00 AM [facility] Social History: Smoking Status (Most current) [...] took place. Date/Time Current Smoking Status Comment [facility] it Mar 31, 2023 11:00 AM VA-TOBACCO QUIT 1 TO < 5 [facility] Tobacco Use History This section includes a history of the smoking, or tobacco-related health factors, that were collected on or before the date of the Encounter. The data comes from the [place] facility where the Encounter took place. Date/Time Smoking Status/Tobac co Use Comment Facility Mar 31, 2023 11:00 AM VA-TOBACCO QUIT 1 TO < 5 YRS [place] [facility] [place] [facility] Mar 25, 2022 10:30 AM VA-TOBACCO NEVER USED [place] [facility] [place] [facility] Mar 19, 2021 02:00 PM VA-TOBACCO FORMER USER [place] [facility] [place] [facility] Mar 19, 2021 02:00 PM VA-TOBACCO QUIT < 1 YEAR [place] [facility] [place] [facility] Sep 20, 2018 11:24 AM VA-TOBACCO USE DECLINED TO ANSWER [place] [facility] [place] [facility] Oct 21, 2017 08:13 AM QUIT TOBACCO USE IN PAST YEAR [place] [facility] [place] [facility] Dec 30, 2016 08:28 AM QUIT TOBACCO USE 1-7 YEARS AGO [place] [facility] [place] [facility] Jun 04, 2016 08:43 AM QUIT TOBACCO USE 1-7 YEARS AGO [place] [facility] [place] [facility] May 17, 2015 08:45 AM QUIT TOBACCO USE 1-7 YEARS AGO quit 2 years ago. [place] [facility] [place] [facility] Jun 07, 2014 09:25 AM QUIT TOBACCO USE 1-7 YEARS AGO [place] [facility] [place] [facility] November 30, 2013 08:44 AM QUIT TOBACCO USE IN PAST YE[facility] [place] [facility] May 22, 2013 10:10 AM QUIT TOBACCO USE IN PAST YEAR [facility] [place] [facility] December 01, 2012 01:54 PM QUIT TOBACCO USE IN [facility]ST [facility] [place] [facility] Jun 07, 2012 08:16 AM V1-PT DECLINES TOBACCO CESSATION MEDS [facility] [place] [facility] [facility] Jun 07, 2012 08:16 AM V1-PT THINKING ABOUT QUIT TOBACCO USE [facility] [place] [facility] Jan 05, 2012 09:00 AM CURRENT SMOKER intermittenly [facility] Jan 05, 2012 09:00 AM V1-PT DECLINES REF TO TOBACCO CESS PRGM [facility] [place] [place] [facility] Jan 05, 2012 09:00 AM V1-PT DECLINES TOBACCO CESSATION MEDS [facility] [place] [facility] Jan 05, 2012 09:00 AM V1-PT THINKING ABOUT QUIT TOBACCO USE [facility] [place] [facility] Feb 17, 2011 09:52 AM V1-PT DECLINES TOBACCO CESSATION MEDS [facility] [place] [facility] Feb 17, 2011 09:52 AM V1-PT THINKING ABOUT QUIT TOBACCO USE [facility] [place] [facility] Aug 13, 2010 11:31 AM QUIT TOBACCO USE IN PAST YEAR [facility] [place] [facility] Feb 19, 2010 01:26 PM QUIT TOBACCO USE IN PAST YEAR [facility] [place] [facility] Sep 13, 2009 11:04 AM QUIT TOBACCO USE IN PAST YEAR [facility] [place] [facility] Feb 05, 2009 08:29 AM V1-PT DECLINES REF TO TOBACCO CESS PRGM [facility] [place] [facility] Feb 05, 2009 08:29 AM V1-PT DECLINES TOBACCO CESSATION MEDS [facility] [place] [facility] Feb 05, 2009 08:29 AM V1-PT THINKING ABOUT QUIT TOBACCO USE [facility] [place] [facility] Aug 22, 2008 09:04 AM QUIT TOBACCO USE IN PAST YEAR [facility] [place] [facility] Mar 12, 2008 10:40 AM V1-PT DECLINES REF TO TOBACCO CESS PRGM [facility] Mar 12, 2008 10:40 AM V1-PT DECLINES TOBACCO CESSATION MEDS [facility] Mar 12, 2008 10:40 AM V1-PT NOT INTERESTED IN QUIT TOBACCO USE [facility] Mar 08, 2008 09:37 AM CURRENT SMOKER smokes one pack a day for about 10 years ago. [facility] Encounter Notes: All associated encounter notes This section contains the clinical notes associated to the Encounter. Date/Time Encounter Note(s) Provider Source Aug 25, 2023 10:48 AM RESPIRATORY THERAP Y NOTE: LOCAL TITLE: RESPIRATORY THERAPY NOTE(BLANK) STANDARD TITLE: RESPIRATORY THERAPY NOTE DATE OF NOTE: AUG 25, 2023@10:48 ENTRY DATE: AUG 25, 2023@10:48:25 AUTHOR: ROHAN CROW COSIGNER: URGENCY: STATUS: COMPLETED Patient diagnosed with sleep apnea data reviewed for Cpap renewal and supplies ordered from [facility]. [employer] COMPLIANCE PROGRAM Patient APAP compliance data reviewed via the [employer] program for the last 90 days. SETTINGS: Bipap [id number] TOTAL DAYS USED 90 DAYS USED > 4hrs 90 AVG USAGE 9 hours LEAK 17 AHI: 0.9 Central 0 These results indicate is compliant. [facility]'s APAP Prescription will be renewed for 1 year. If pt has any questions or concerns regarding Apap, he/she can contact Respiratory at [phone] extension [phone]. /es/ ROHAN CROW CRT RESPIRATORY THERAPIST Signed: 08/25/2023 10:51 ROHAN CROW
--- OUTSIDE RECORDS SUMMARY | 2024-07-05 03:27 | XMS_ITS | Encounter Summary ---
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 Address [address] [place] [address] Care Team Providers Care [employer] Specialties Cook Name Role Phone ROMANA CASTILLO Primary Care [...] to Policy Garcia [facility] (MEDICAID) MEDICAID [place] DEPT [facility] May 14, 2009 [id number] SAMPLE,ROCCO MOORE PATIENT [facility] May 14, 2009 [id number] SAMPLE,ROCCO MOORE PATIENT MEDICAID MEDICAID [facility] Jul 26, 2018 MEDICAI D [id number] SAMPLE,ROCCO MOORE PATIENT MEDICARE (WNR) MEDICARE (M) PART A November 24, 2015 PART A [id number] SAMPLE,ROCCO MOORE PATIENT MEDICARE (WNR) MEDICARE (M) PART B November 24, 2015 PART B [id number] SAMPLE,ROCCO MOORE PATIENT Selected Encounter This section includes the information on record at [place] for the Encounter. Date/Time Encounter Type Encounter Description Reason Pro vider Source Sep 02, 2023 03:43 PM Outpatient Encounter ADMIN PAT ACTIVTIES (MASNONCT) [...] - MEDICINE [place] [facility] [place] [facility] Sep 08, 2023 01:30 PM AMBULATORY - MEDICINE [place] [facility] [facility] Oct 06, 2023 09:00 AM AMBULATORY - MEDICINE [place] [facility] [place] [facility] Oct 07, 2023 01:00 PM AMBULATORY - PSYCHIATRY [place] [facility] [place] [facility] Oct 25, 2023 11:00 AM AMBULATORY - MEDICINE [place] [facility] [place] [facility] Nov 09, 2023 09:00 AM AMBULATORY - MEDICINE [place] [facility] [place] [facility] Nov 17, 2023 09:30 AM AMBULATORY - MEDICINE [place] [facility] [place] [facility] Jan 03, 2024 11:00 AM AMBULATORY - PSYCHIATRY [place] [facility] [place] [facility] Jan 17, 2024 03:00 PM AMBULATORY - MEDICINE [place] [facility] [place] [facility] Jan 26, 2024 09:30 AM AMBULATORY - MEDICINE [place] [facility] [facility] Feb 03, 2024 03:00 PM AMBULATORY - MEDICINE [place] [facility] [place] [facility] Feb 14, 2024 11:00 AM AMBULATORY - PSYCHIATRY [place] [facility] [facility] Social History: Smoking Status (Most [...] 11:00 AM VA-TOBACCO FORMER USER [facility] Tobacco Use History This section includes a history of the smoking, or tobacco-related health factors, that were collected on or before the date of the Encounter. The data comes from the [place] facility where the Encounter took place. Date/Time Smoking Status/Tobac co Use Comment Facility Mar 31, 2023 11:00 AM VA-TOBACCO QUIT 1 TO < 5 YRS [place] [facility] [place] [facility] Mar 25, 2022 10:30 AM VA-TOBACCO NEVER USED [place] [facility] [facility] Mar 19, 2021 02:00 PM VA-TOBACCO FORMER USER [place] [facility] [facility] Mar 19, 2021 02:00 PM VA-TOBACCO QUIT < 1 YEAR [facility] [place] [facility] Sep 20, 2018 11:24 AM VA-TOBACCO USE DECLINED TO ANSWER [facility] [place] [facility] Oct 21, 2017 08:13 AM QUIT TOBACCO USE IN PAST YEAR [place] [facility] [place] [facility] Dec 30, 2016 08:28 AM QUIT TOBACCO USE 1-7 YEARS AGO [place] [facility] [place] [facility] Jun 04, 2016 08:43 AM QUIT TOBACCO USE 1-7 YEARS AGO [place] [facility] [place] [facility] May 17, 2015 08:45 AM QUIT TOBACCO USE 1-7 YEARS AGO quit 2 years ago. [place] [facility] [place] [facility] Jun 07, 2014 09:25 AM QUIT TOBACCO USE 1-7 YEARS AGO [place] [facility] [place] [facility] November 30, 2013 08:44 AM QUIT TOBACCO USE IN PAST YEAR [facility] [place] [facility] May 22, 2013 10:10 AM QUIT TOBACCO USE IN PAST YEAR [facility] [place] [facility] December 01, 2012 01:54 PM QUIT TOBACCO USE IN PAST YEAR [facility] [place] [facility] Jun 07, 2012 08:16 AM V1-PT DECLINES TOBACCO CESSATION MEDS [facility] [place] [facility] Jun 07, 2012 08:16 AM V1-PT THINKING ABOUT QUIT TOBACCO USE [facility] [place] [facility] Jan 05, 2012 09:00 AM CURRENT SMOKER intermittenly [facility] [place] [place] [facility] Jan 05, 2012 09:00 AM V1-PT DECLINES REF TO TOBACCO CESS PRGM [facility] [place] [facility] Jan 05, 2012 09:00 AM V1-PT DECLINES TOBACCO CESSATION MEDS [facility] [place] [facility] Jan 05, 2012 09:00 AM V1-PT THINKING ABOUT QUIT TOBACCO USE [facility] [place] [facility] Feb 17, 2011 09:52 AM V1-PT DECLINES TOBACCO CESSATION MEDS [facility] [place] [facility] Feb 17, 2011 09:52 AM V1-PT THINKING ABOUT QUIT TOBACCO USE [facility] [place] [facility] Aug 13, 2010 11:31 AM QUIT TOBACCO USE IN PAST YEAR [facility] [place] [facility] Feb 19, 2010 01:26 PM QUIT TOBACCO USE IN PAST YEAR [facility] [place] [facility] Sep 13, 2009 11:04 AM QUIT TOBACCO USE IN PAST YEAR [place] [facility] [place] [facility] Feb 05, 2009 08:29 AM V1-PT DECLINES REF TO TOBACCO CESS PRGM [facility] [place] [facility] Feb 05, 2009 08:29 AM V1-PT DECLINES TOBACCO CESSATION MEDS [facility] [place] [facility] Feb 05, 2009 08:29 AM V1-PT THINKING ABOUT QUIT TOBACCO USE [facility] [place] [facility] Aug 22, 2008 09:04 AM QUIT TOBACCO USE IN PAST YEAR [place] [facility] [place] [facility] Mar 12, 2008 10:40 AM V1-PT DECLINES REF TO TOBACCO CESS PRGM [place] [facility] [place] [facility] Mar 12, 2008 10:40 AM V1-PT DECLINES TOBACCO CESSATION MEDS [facility] [place] [facility] Mar 12, 2008 10:40 AM V1-PT NOT INTERESTED IN QUIT TOBACCO USE [facility] [place] [facility] Mar 08, 2008 09:37 AM CURRENT SMOKER smokes one pack a day for about 10 years ago. [facility] [place] [facility] Encounter Notes: All associated encounter notes This section contains the clinical notes associated to the Encounter. Date/Time Encounter Note(s) Provider Source Sep 02, 2023 03:43 PM ADMINISTRATIVE NOTE: LOCAL TITLE: CCC: SCHEDULING ADMINISTRATION STANDARD TITLE: ADMINISTRATIVE NOTE DATE OF NOTE: SEP 02, 2023@15:43 ENTRY DATE: SEP 02, 2023@15:43:45 AUTHOR: CATALINA NICHOLAS EXP COSIGNER: URGENCY: STATUS: COMPLETED CCC: SCHEDULING ADMINISTRATION Has ADDENDA MIKE MERINO FROM [facility] CALLED TO GO A MEDICATION REC WITH THE PACT. THE PT WAS DISCHARGED FROM [facility] AND NEEDS A POST DISCHARGE FOLLOW UP. PLEASE CALL THE PT AT HOME PHONE ON FILE WELL IS BEING REQUESTED /isabella NICHOLAS Signed: 09/02/2023 15:45 Receipt Acknowledged By: 09/03/2023 13:40 /divya/ OLGA GREEN, LULI, RN, CNL PRIMARY CARE TEAM NURSE 09/03/2023 11:54 /divya/ Fabiola Hooker RN Primary Care Staff Nurse 09/03/2023 ADDENDUM STATUS: COMPLETED left message for cb Vet has PCP appt on 09/08 /divya/ Fabiola Hooker RN Primary Care Staff Nurse Signed: 09/03/2023 11:53 CATALINA NICHOLAS [facility]
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
--- OUTSIDE RECORDS SUMMARY | 2024-07-05 03:30 | XMS_ITS | Encounter Summary ---
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 Organization [place] Address [address] [place] [id number] Care Team Providers Care Douper Name Role Phone ROMANA CASTILLO Primary Care [...] Garcia's Name Patient's Relationship to Policy Garcia [facility] (MEDICAID) [facility] May 14, 2009 [id number] SAMPLE,ROCCO MOORE PATIENT [facility] MEDICAID [facility] May 14, 2009 [id number] SAMPLE,ROCCO MOORE PATIENT MEDICAID MEDICAID [facility] Jul 26, 2018 MEDICAI D [id number] SAMPLE,ROCCO MOORE PATIENT MEDICARE (WNR) MEDICARE (M) PART A November 24, 2015 PART A [id number] SAMPLE,ROCCO MOORE PATIENT MEDICARE (WNR) MEDICARE (M) PART B November 24, 2015 PART B [id number] ROCCO QUEZADA PATIENT Selected Encounter This section includes the information on record at [place] for the Encounter. Date/Time Encounter Type Encounter Description Reason Pro vider Source Sep 08, 2023 12:00 AM Outpatient Encounter EVENT (HISTORICAL) [...] - MEDICINE [place] [facility] [place] [facility] Oct 07, 2023 01:00 PM AMBULATORY - PSYCHIATRY [place] [facility] [place] [facility] Oct 25, 2023 11:00 AM AMBULATORY - MEDICINE ND C [facility] [place] [facility] Nov 09, 2023 09:00 AM AMBULATORY - MEDICINE ND C [facility] [place] [facility] Nov 17, 2023 09:30 AM AMBULATORY - MEDICINE ND [facility] [place] [facility] Jan 03, 2024 11:00 AM AMBULATORY - PSYCHIATRY ND [facility] [place] [facility] Jan 17, 2024 03:00 PM AMBULATORY - MEDICINE ND C [facility] [place] [facility] Jan 26, 2024 09:30 AM AMBULATORY - MEDICINE ND C [facility] [place] [facility] Feb 03, 2024 03:00 PM AMBULATORY - MEDICINE ND C [facility] [place] [facility] Feb 14, 2024 11:00 AM AMBULATORY - PSYCHIATRY ND [facility] [place] [facility] Mar 06, 2024 09:00 AM AMBULATORY - MEDICINE ND C [facility] [place] [facility] Vital Signs: All taken on the encounter date This section contains inpatient and outpatient Vital Signs collected on the date of the Encounter. Date/Time Temperature Pulse Blood Pressure Respiratory Rate SP02 Pain Height Weight Body Mass Index Source Sep 08, 2023 01:03 PM 97.9 71 167/69 20 93 6 [place] [facility] [facility] Social History: Smoking Status (Most [...] 31, 2023 11:00 AM VA-TOBACCO [facility] Tobacco Use History This section includes a history of the smoking, or tobacco-related health factors, that were collected on or before the date of the Encounter. The data comes from the [place] facility where the Encounter took place. Date/Time Smoking Status/Tobac co Use Comment Facility Mar 31, 2023 11:00 AM VA-TOBACCO QUIT 1 TO < 5 YRS ND [facility] [place] [facility] Mar 25, 2022 10:30 AM VA-TOBACCO NEVER USED ND [facility] [place] [facility] Mar 19, 2021 02:00 PM VA-TOBACCO FORMER USER ND [facility] [place] [facility] Mar 19, 2021 02:00 PM VA-TOBACCO QUIT < 1 YEAR ND [facility] [place] [facility] Sep 20, 2018 11:24 AM VA-TOBACCO USE DECLINED TO ANSWER ND [facility] [place] [facility] Oct 21, 2017 08:13 AM QUIT TOBACCO USE IN PAST YEAR ND [facility] [place] [facility] Dec 30, 2016 08:28 AM QUIT TOBACCO USE 1-7 YEARS AGO ND [facility] [place] [facility] Jun 04, 2016 08:43 AM QUIT TOBACCO USE 1-7 YEARS AGO ND [facility] [place] [facility] May 17, 2015 08:45 AM QUIT TOBACCO USE 1-7 YEARS AGO quit 2 years ago. [place] [facility] [place] [facility] Jun 07, 2014 09:25 AM QUIT TOBACCO USE 1-7 YEARS AGO ND [facility] [place] [facility] November 30, 2013 08:44 AM QUIT TOBACCO USE IN PAST YEAR ND [facility] [place] [facility] May 22, 2013 10:10 AM QUIT TOBACCO USE IN PAST YEAR ND [facility] [place] [facility] December 01, 2012 01:54 PM QUIT TOBACCO USE IN PAST YEAR [facility] [place] [facility] Jun 07, 2012 08:16 AM V1-PT DECLINES TOBACCO CESSATION MEDS [facility] [place] [facility] Jun 07, 2012 08:16 AM V1-PT THINKING ABOUT QUIT TOBACCO USE [facility] [place] [facility] Jan 05, 2012 09:00 AM CURRENT SMOKER intermittenly VA [facility] [place] [facility] Jan 05, 2012 09:00 AM V1-PT DECLINES REF TO TOBACCO CESS PRGM [facility] [place] [facility] Jan 05, 2012 09:00 AM V1-PT DECLINES TOBACCO CESSATION MEDS [facility] [place] [facility] Jan 05, 2012 09:00 AM V1-PT THINKING ABOUT QUIT TOBACCO USE [facility] [place] [facility] Feb 17, 2011 09:52 AM V1-PT DECLINES TOBACCO CESSATION MEDS [facility] [place] [facility] Feb 17, 2011 09:52 AM V1-PT THINKING ABOUT QUIT TOBACCO USE [facility] [place] [facility] Aug 13, 2010 11:31 AM QUIT TOBACCO USE IN PAST YEAR [facility] [place] [facility] Feb 19, 2010 01:26 PM QUIT TOBACCO USE IN PAST YEAR [facility] [place] [facility] Sep 13, 2009 11:04 AM QUIT TOBACCO USE IN PAST YEAR [facility] [place] [facility] Feb 05, 2009 08:29 AM V1-PT DECLINES REF TO TOBACCO CESS PRGM [facility] [place] [facility] Feb 05, 2009 08:29 AM V1-PT DECLINES TOBACCO CESSATION MEDS [facility] [place] [facility] Feb 05, 2009 08:29 AM V1-PT THINKING ABOUT QUIT TOBACCO USE [facility] [place] [facility] Aug 22, 2008 09:04 AM QUIT TOBACCO USE IN PAST YEAR [facility] [place] [facility] Mar 12, 2008 10:40 AM V1-PT DECLINES REF TO TOBACCO CESS PRGM [facility] [place] [facility] Mar 12, 2008 10:40 AM V1-PT DECLINES TOBACCO CESSATION MEDS [facility] [place] [facility] Mar 12, 2008 10:40 AM V1-PT NOT INTERESTED IN QUIT TOBACCO USE [facility] Mar 08, 2008 09:37 AM CURRENT SMOKER smokes one pack a day for about 10 years ago. [facility]
--- OUTSIDE RECORDS SUMMARY | 2024-07-05 03:30 | XMS_ITS | Encounter Summary ---
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 Organization [place] Address [address] [place] [address] Care Team Providers Care Electro Mechanical Technologist Name Role Phone ROMANA CASTILLO Primary Care [...] Garcia [facility] (MEDICAID) [facility] May 14, 2009 [id number] SAMPLE,ROCCO MOORE PATIENT [facility] May 14, 2009 [id number] SAMPLE,ROCCO MOORE PATIENT MEDICAID MEDICAID [facility] [place] Jul 26, 2018 MEDICAI D [id number] SAMPLE,ROCCO MOORE PATIENT MEDICARE (WNR) MEDICARE (M) PART A November 24, 2015 PART A [id number] SAMPLE,ROCCO MOORE PATIENT MEDICARE (WNR) MEDICARE (M) PART B November 24, 2015 PART B [id number] ROCCO QUEZADA PATIENT Selected Encounter This section includes the information on record at [place] for the Encounter. Date/Time Encounter Type Encounter Description Reason Pro vider Source Sep 08, 2023 02:58 PM Outpatient Encounter [facility] Encounter [...] 06, 2023 09:00 AM AMBULATORY - MEDICINE [place] [place] [facility] Oct 07, 2023 01:00 PM AMBULATORY - PSYCHIATRY [place] [facility] [place] [facility] Oct 25, 2023 11:00 AM AMBULATORY - MEDICINE HI [facility] [place] [facility] Nov 09, 2023 09:00 AM AMBULATORY - MEDICINE HI [facility] [place] [facility] Nov 17, 2023 09:30 AM AMBULATORY - MEDICINE HI [facility] [facility] Jan 03, 2024 11:00 AM AMBULATORY - PSYCHIATRY HI [facility] [place] [facility] Jan 17, 2024 03:00 PM AMBULATORY - MEDICINE HI [facility] [facility] Jan 26, 2024 09:30 AM AMBULATORY - MEDICINE HI [facility] [facility] Feb 03, 2024 03:00 PM AMBULATORY - MEDICINE HI [facility] [place] [facility] Feb 14, 2024 11:00 AM AMBULATORY - PSYCHIATRY HI [facility] [place] [facility] Mar 06, 2024 09:00 AM AMBULATORY - MEDICINE HI [facility] [place] [facility] Vital Signs: All taken on the encounter date This section contains inpatient and outpatient Vital Signs collected on the date of the Encounter. Date/Time Temperature Pulse Blood Pressure Respiratory Rate SP02 Pain Height Weight Body Mass Index Source Sep 08, 2023 01:03 PM 97.9 71 167/69 20 93 6 [place] [facility] Social History: Smoking Status (Most current) [...] took place. Date/Time Current Smoking Status Comment [facility] Mar 31, 2023 11:00 AM VA-TOBACCO [facility] Tobacco Use History This section includes a history of the smoking, or tobacco-related health factors, that were collected on or before the date of the Encounter. The data comes from the [place] facility where the Encounter took place. Date/Time Smoking Status/Tobac co Use Comment Facility Mar 31, 2023 11:00 AM VA-TOBACCO QUIT 1 TO < 5 YRS [facility] Mar 25, 2022 10:30 AM VA-TOBACCO NEVER USED [facility] Mar 19, 2021 02:00 PM VA-TOBACCO FORMER USER [place] [facility] [place] [facility] Mar 19, 2021 02:00 PM VA-TOBACCO QUIT < 1 YEAR HI [facility] [place] [facility] Sep 20, 2018 11:24 AM VA-TOBACCO USE DECLINED TO ANSWER HI [facility] [place] [facility] Oct 21, 2017 08:13 AM QUIT TOBACCO USE IN PAST YEAR HI [facility] [place] [facility] Dec 30, 2016 08:28 AM QUIT TOBACCO USE 1-7 YEARS AGO HI [facility] [place] [facility] Jun 04, 2016 08:43 AM QUIT TOBACCO USE 1-7 YEARS AGO HI [facility] [place] [facility] May 17, 2015 08:45 AM QUIT TOBACCO USE 1-7 YEARS AGO quit 2 years ago. [place] [facility] [place] [facility] Jun 07, 2014 09:25 AM QUIT TOBACCO USE 1-7 YEARS AGO HI [facility] [place] [facility] November 30, 2013 08:44 AM QUIT [facility] [place] [facility] May 22, 2013 10:10 AM QUIT TOBACCO USE IN PAST YEAR HI [facility] [place] [facility] December 01, 2012 01:54 PM QUIT TOBACCO USE IN PAST YEAR [facility] [place] [facility] Jun 07, 2012 08:16 AM V1-PT DECLINES TOBACCO CESSATION MEDS [facility] [place] [facility] Jun 07, 2012 08:16 AM V1-PT THINKING ABOUT QUIT TOBACCO USE [facility] [place] [facility] Jan 05, 2012 09:00 AM CURRENT SMOKER intermittenly [facility] [place] [facility] Jan 05, 2012 09:00 AM V1-PT DECLINES REF TO TOBACCO CESS PRGM [facility] [place] [facility] Jan 05, 2012 09:00 AM V1-PT DECLINES TOBACCO CESSATION MEDS [facility] [place] [facility] Jan 05, 2012 09:00 AM V1-PT THINKING ABOUT QUIT TOBACCO USE [facility] [place] [facility] Feb 17, 2011 09:52 AM V1-PT DECLINES TOBACCO CESSATION MEDS [facility] [place] [facility] Feb 17, 2011 09:52 AM V1-PT THINKING ABOUT QUIT TOBACCO USE [facility] [place] [facility] Aug 13, 2010 11:31 AM QUIT TOBACCO USE IN PAST YEAR [facility] [place] [facility] Feb 19, 2010 01:26 PM QUIT TOBACCO USE IN PAST YEAR HI [facility] [place] [facility] Sep 13, 2009 11:04 AM QUIT TOBACCO USE IN PAST YEAR HI [facility] [place] [facility] Feb 05, 2009 08:29 AM V1-PT DECLINES REF TO TOBACCO CESS PRGM [facility] [place] [facility] Feb 05, 2009 08:29 AM V1-PT DECLINES TOBACCO CESSATION MEDS [facility] [place] [facility] Feb 05, 2009 08:29 AM V1-PT THINKING ABOUT QUIT TOBACCO USE [facility] [place] [facility] Aug 22, 2008 09:04 AM QUIT TOBACCO USE IN PAST YEAR [facility] [place] [facility] Mar 12, 2008 10:40 AM V1-PT DECLINES REF TO TOBACCO CESS PRGM [facility] [place] [facility] Mar 12, 2008 10:40 AM V1-PT DECLINES TOBACCO CESSATION MEDS [facility] [place] [facility] Mar 12, 2008 10:40 AM V1-PT NOT INTERESTED IN QUIT TOBACCO USE [facility] Mar 08, 2008 09:37 AM CURRENT SMOKER smokes one pack a day for about 10 years ago. [facility] Encounter Notes: All associated encounter notes This section contains the clinical notes associated to the Encounter. Date/Time Encounter Note(s) Provider Source Sep 08, 2023 02:58 PM TELEPHONE ENCOUNTER NOTE: LOCAL TITLE: TELEPHONE NOTE/SPECIALTY CLINIC STANDARD TITLE: TELEPHONE ENCOUNTER NOTE DATE OF NOTE: SEP 08, 2023@14:58 ENTRY DATE: SEP 08, 2023@14:58:33 AUTHOR: LORI QUEVEDO COSIGNER: URGENCY: STATUS: COMPLETED TELEPHONE NOTE/SPECIALTY CLINIC Has ADDENDA Vet stopped by office requesting refill for Oxycodone be overnighted to address on file. Providers aware via Teams. /divya/ LORI QUEVEDO Signed: 09/08/2023 14:59 Receipt Acknowledged By: 09/08/2023 16:37 /es/ Gal Solorio MD STAFF PHYSICIAN 09/08/2023 15:17 /divya/ URBANO FOSTER, PHARM.D CLINICAL PHARMACIST PRACTITIONER 09/08/2023 ADDENDUM STATUS: COMPLETED Spoke to at waiting room and she report will not wait and hope to receive pain medication via overnight to her /divya/ URBANO FOSTER, PHARM.D CLINICAL PHARMACIST PRACTITIONER Signed: 09/08/2023 15:18 LORI QUEVEDO [facility]
--- OUTSIDE RECORDS SUMMARY | 2024-07-05 03:30 | XMS_ITS | Encounter Summary ---
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 Organization [place] Address [address] [place] [id number] Care Team Providers Care Coal Carrier Name Role Phone ROMANA CASTILLO Primary Care [...] Garcia's Name Patient's Relationship to Policy Garcia [facility] (MEDICAID) [facility] May 14, 2009 [id number] SAMPLE,ROCCO MOORE PATIENT [facility] MEDICAID [facility] HUMAN [facility] May 14, 2009 [id number] SAMPLE,ROCCO MOORE PATIENT MEDICAID MEDICAID [facility] [place] Jul 26, 2018 MEDICAI D [id number] SAMPLE,ROCCO MOORE PATIENT MEDICARE (WNR) MEDICARE (M) PART B November 24, 2015 PART B [id number] SAMPLE,ROCCO MOORE PATIENT MEDICARE (WNR) MEDICARE (M) PART A November 24, 2015 PART A [id number] ROCCO QUEZADA PATIENT Selected Encounter This section includes the information on record at [place] for the Encounter. Date/Time Encounter Type Encounter Description Reason Pro vider Source Aug 31, 2023 12:00 AM Outpatient Encounter EVENT (HISTORICAL) [...] - MEDICINE [place] [facility] [place] [facility] Sep 08, 2023 01:30 PM AMBULATORY - MEDICINE [place] [facility] [place] [facility] Oct 06, 2023 09:00 AM AMBULATORY - MEDICINE [place] [facility] Oct 07, 2023 01:00 PM AMBULATORY - PSYCHIATRY [place] [facility] [place] [facility] Oct 25, 2023 11:00 AM AMBULATORY - MEDICINE [place] C [place] [facility] Nov 09, 2023 09:00 AM AMBULATORY - MEDICINE [place] [facility] Nov 17, 2023 09:30 AM AMBULATORY - MEDICINE [place] [facility] [place] [facility] Jan 03, 2024 11:00 AM AMBULATORY - PSYCHIATRY [place] [facility] [place] [facility] Jan 17, 2024 03:00 PM AMBULATORY - MEDICINE [place] [facility] [place] [facility] Jan 26, 2024 09:30 AM AMBULATORY - MEDICINE [place] [facility] [place] [facility] Feb 03, 2024 03:00 PM AMBULATORY - MEDICINE [place] [facility] [place] [facility] Feb 14, 2024 11:00 AM AMBULATORY - PSYCHIATRY [place] [facility] [place] [facility] Social History: Smoking Status (Most current) and [...] 2023 11:00 AM VA-TOBACCO FORMER USER [facility] Tobacco Use History This section includes a history of the smoking, or tobacco-related health factors, that were collected on or before the date of the Encounter. The data comes from the [place] facility where the Encounter took place. Date/Time Smoking Status/Tobac co Use Comment Facility Mar 31, 2023 11:00 AM VA-TOBACCO QUIT 1 TO < 5 YRS [place] [facility] [place] [facility] Mar 25, 2022 10:30 AM VA-TOBACCO NEVER USED [place] [facility] [place] [facility] Mar 19, 2021 02:00 PM VA-TOBACCO FORMER USER [place] [facility] [place] [facility] Mar 19, 2021 02:00 PM VA-TOBACCO QUIT < 1 YE[facility] [place] [facility] Sep 20, 2018 11:24 AM VA-TOBACCO USE DECLINED TO ANSWER [place] [facility] [place] [facility] Oct 21, 2017 08:13 AM QUIT TOBACCO USE IN PAST YEAR SD [facility] [place] [facility] Dec 30, 2016 08:28 AM QUIT TOBACCO USE 1-7 YEARS AGO [place] [facility] [place] [facility] Jun 04, 2016 08:43 AM QUIT TOBACCO USE 1-7 YEARS AGO [place] [facility] [place] [facility] May 17, 2015 08:45 AM QUIT TOBACCO USE 1-7 YEARS AGO quit 2 years ago. [place] [facility] [place] [facility] Jun 07, 2014 09:25 AM QUIT TOBACCO USE 1-7 YEARS AGO [place] [facility] [place] [facility] November 30, 2013 08:44 AM QUIT TOBACCO USE IN PAST YEAR [place] [facility] [place] [facility] May 22, 2013 10:10 AM QUIT TOBACCO USE IN PAST YEAR [place] [facility] [place] [facility] December 01, 2012 01:54 PM QUIT TOBACCO USE IN PAST YE[facility] [place] [facility] Jun 07, 2012 08:16 AM V1-PT DECLINES TOBACCO CESSATION MEDS [place] [facility] [place] [facility] Jun 07, 2012 08:16 AM V1-PT THINKING ABOUT QUIT TOBACCO USE [facility] [place] [facility] Jan 05, 2012 09:00 AM CURRENT SMOKER intermittenly [facility] [place] [facility] Jan 05, 2012 09:00 AM V1-PT DECLINES REF TO TOBACCO CESS PRGM [facility] [place] [facility] Jan 05, 2012 09:00 AM V1-PT DECLINES TOBACCO CESSATION MEDS [facility] [place] [facility] Jan 05, 2012 09:00 AM V1-PT THINKING ABOUT QUIT TOBACCO USE [facility] [place] [facility] Feb 17, 2011 09:52 AM V1-PT DECLINES TOBACCO CESSATION MEDS [place] [facility] [place] [facility] Feb 17, 2011 09:52 AM V1-PT THINKING ABOUT QUIT [facility]ACCO [facility] [place] [facility] Aug 13, 2010 11:31 AM QUIT TOBACCO USE IN PAST YEAR [facility] [place] [facility] Feb 19, 2010 01:26 PM QUIT TOBACCO USE IN PAST YEAR [facility] [place] [facility] Sep 13, 2009 11:04 AM QUIT TOBACCO USE IN PAST YEAR [facility] [place] [facility] Feb 05, 2009 08:29 AM V1-PT DECLINES REF TO TOBACCO CESS PRGM [facility] [place] [facility] Feb 05, 2009 08:29 AM V1-PT DECLINES TOBACCO CESSATION MEDS [facility] [place] [facility] Feb 05, 2009 08:29 AM V1-PT THINKING ABOUT QUIT TOBACCO USE [facility] [place] [facility] Aug 22, 2008 09:04 AM QUIT TOBACCO USE IN PAST YEAR [place] [facility] [place] [facility] Mar 12, 2008 10:40 AM V1-PT DECLINES REF TO TOBACCO CESS PRGM [facility] [place] [facility] Mar 12, 2008 10:40 AM V1-PT DECLINES TOBACCO CESSATION MEDS [facility] [place] [facility] Mar 12, 2008 10:40 AM V1-PT NOT INTERESTED IN QUIT TOBACCO USE [facility] [place] [facility] Mar 08, 2008 09:37 AM CURRENT SMOKER smokes one pack a day for about 10 years ago. [facility] Encounter Notes: All associated encounter notes This section contains the clinical notes associated to the Encounter. Date/Time Encounter Note(s) Provider Source Aug 31, 2023 12:00 AM NONVA NOTE: LOCAL TITLE: NON-VA HOSPITALIZATIONS/ER STANDARD TITLE: NONVA NOTE DATE OF NOTE: AUG 31, 2023 ENTRY DATE: SEP 09, 2023@11:28:21 AUTHOR: NIKOLAS DALY COSIGNER: URGENCY: STATUS: COMPLETED VistA Imaging - Scanned Document SCANNED DOCUMENT SIGNATURE NOT REQUIRED Electronically Filed: 09/09/2023 by: MERCEDES DALY Core Cutter MERCEDES DALY [facility]
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
--- OUTSIDE RECORDS SUMMARY | 2024-07-05 03:30 | XMS_ITS | Encounter Summary ---
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 Address [address] [place] [id number] Care Team Providers Care Spinner Operator Name Role Phone ROMANA CASTILLO Primary [...] Garcia's Name Patient's Relationship to Policy Garcia [facility] (MEDICAID) [facility] May 14, 2009 [id number] SAMPLE,ROCCO MOORE PATIENT [facility] May 14, 2009 [id number] SAMPLE,ROCCO MOORE PATIENT MEDICAID MEDICAID [facility] Jul 26, 2018 MEDICAI D [id number] SAMPLE,ROCCO MOORE PATIENT MEDICARE (WNR) MEDICARE (M) PART A November 24, 2015 PART A [id number] SAMPLE,ROCCO MOORE PATIENT MEDICARE (WNR) MEDICARE (M) PART B November 24, 2015 PART B [id number] [phone] [id number] ROCCO QUEZADA PATIENT Selected Encounter This section includes the information on record at [place] for the Encounter. Date/Time Encounter Type Encounter Description Reason Pro vider Source Sep 08, 2023 10:00 AM Outpatient Encounter PAIN CLINIC [facility] Encounter [...] - MEDICINE [place] [facility] [place] [facility] Oct 07, 2023 01:00 PM AMBULATORY - PS[place]CHIATRY [place] [facility] [place] [facility] Oct 25, 2023 11:00 AM AMBULATORY [place]ICINE [place] [facility] [place] [facility] Nov 09, 2023 09:00 AM AMBULATORY [place]ICINE [place] [facility] [place] [facility] Nov 17, 2023 09:30 AM AMBULATORY [place]ICINE [place] [facility] [place] [facility] Jan 03, 2024 11:00 AM AMBULATORY - PS[place]CHIATRY [place] [facility] [place] [facility] Jan 17, 2024 03:00 PM AMBULATORY - MEDICINE [place] [facility] [place] [facility] Jan 26, 2024 09:30 AM AMBULATORY - MEDICINE [place] [facility] [place] [facility] Feb 03, 2024 03:00 PM AMBULATORY - MEDICINE [place] [facility] [place] [facility] Feb 14, 2024 11:00 AM AMBULATORY - PS[place]CHIATRY [place] [facility] [place] [facility] Mar 06, 2024 09:00 AM AMBULATORY - MEDICINE [place] [facility] [place] [facility] Vital Signs: All taken on the encounter date This section contains inpatient and outpatient Vital Signs collected on the date of the Encounter. Date/Time Temperature Pulse Blood Pressure Respiratory Rate SP02 Pain Height Weight Body Mass Index Source Sep 08, 2023 01:03 PM 97.9 71 167/69 20 93 6 [place] [facility] [place] [facility] Social History: Smoking Status (Most current) and [...] took place. Date/Time Current Smoking Status Comment [facility] Mar 31, 2023 11:00 AM [facility] Tobacco Use History This section includes a history of the smoking, or tobacco-related health factors, that were collected on or before the date of the Encounter. The data comes from the [place] facility where the Encounter took place. Date/Time Smoking Status/Tobac co Use Comment Facility Mar 31, 2023 11:00 AM VA-TOBACCO QUIT 1 TO < 5 YRS [place] [facility] Mar 25, 2022 10:30 AM VA-TOBACCO NEVER USED [place] [facility] Mar 19, 2021 02:00 PM VA-TOBACCO FORMER USER [place] [facility] [place] [facility] Mar 19, 2021 02:00 PM VA-TOBACCO QUIT < 1 YEAR [place] [facility] [place] [facility] Sep 20, 2018 11:24 AM VA-TOBACCO USE DECLINED TO ANSWER [place] [facility] [place] [facility] Oct 21, 2017 08:13 AM QUIT TOBACCO USE IN PAST YEAR [facility] [place] [facility] Dec 30, 2016 08:28 AM QUIT TOBACCO USE 1-7 YEARS AGO [facility] [place] [facility] Jun 04, 2016 08:43 AM QUIT TOBACCO USE 1-7 YEARS AGO [facility] [place] [facility] May 17, 2015 08:45 AM QUIT TOBACCO USE 1-7 YEARS AGO quit 2 years ago. [place] [facility] [place] [facility] Jun 07, 2014 09:25 AM QUIT TOBACCO USE 1-7 YEARS AGO [facility] [place] [facility] November 30, 2013 08:44 AM QU[facility] [place] [facility] May 22, 2013 10:10 AM QUIT TOBACCO USE IN PAST YEAR [place] [facility] [place] [facility] December 01, 2012 01:54 PM QUIT TOBACCO USE IN PAST YEAR [facility] [place] [facility] Jun 07, 2012 08:16 AM V1-PT DECLINES TOBACCO CESSATION MEDS [facility] [place] [facility] Jun 07, 2012 08:16 AM V1-PT THINKING ABOUT QUIT TOBACCO USE [facility] [place] [facility] Jan 05, 2012 09:00 AM CURRENT SMOKER intermittenly [facility] [place] [facility] Jan 05, 2012 09:00 AM V1-PT DECLINES REF TO TOBACCO CESS PRGM [facility] [place] [facility] Jan 05, 2012 09:00 AM V1-PT DECLINES TOBACCO CESSATION MEDS [facility] [place] [facility] Jan 05, 2012 09:00 AM V1-PT THINKING ABOUT QUIT TOBACCO USE [facility] [place] [facility] Feb 17, 2011 09:52 AM V1-PT DECLINES TOBACCO CESSATION MEDS [facility] [place] [facility] Feb 17, 2011 09:52 AM V1-PT THINKING ABOUT QUIT TOBACCO USE [facility] [place] [facility] Aug 13, 2010 11:31 AM QUIT TOBACCO USE IN PAST YEAR [facility] [place] [facility] Feb 19, 2010 01:26 PM QUIT TOBACCO USE IN PAST YEAR [facility] [place] [facility] Sep 13, 2009 11:04 AM QUIT TOBACCO USE IN PAST YEAR [facility] [place] [facility] Feb 05, 2009 08:29 AM V1-PT DECLINES REF TO TOBACCO CESS PRGM [facility] [place] [facility] Feb 05, 2009 08:29 AM V1-PT DECLINES TOBACCO CESSATION MEDS [facility] [place] [facility] Feb 05, 2009 08:29 AM V1-PT THINKING ABOUT QUIT TOBACCO USE [facility] [place] [facility] Aug 22, 2008 09:04 AM QUIT TOBACCO USE IN PAST YEAR [facility] [place] [facility] Mar 12, 2008 10:40 AM V1-PT DECLINES REF TO TOBACCO CESS PRGM [facility] [place] [facility] Mar 12, 2008 10:40 AM V1-PT DECLINES TOBACCO CESSATION MEDS [facility] [place] [facility] Mar 12, 2008 10:40 AM V1-PT NOT INTERESTED IN QUIT TOBACCO USE [facility] Mar 08, 2008 09:37 AM CURRENT SMOKER smokes one pack a day for about [address] [facility] Encounter Notes: All associated encounter notes This section contains the clinical notes associated to the Encounter. Date/Time Encounter Note(s) Provider Source Sep 08, 2023 10:00 AM TELEPHONE ENCOUNTE R NOTE: LOCAL TITLE: TELEPHONE NOTE/SPECIALTY CLINIC STANDARD TITLE: TELEPHONE ENCOUNTER NOTE DATE OF NOTE: SEP 08, 2023@10:00 ENTRY DATE: SEP 08, 2023@10:01:02 AUTHOR: LORI QUEVEDO COSIGNER: URGENCY: STATUS: COMPLETED TELEPHONE NOTE/SPECIALTY CLINIC Has ADDENDA Call attempt was made to remind vet that they have a FTF appt with the Pain clinic on 09/08/2023 at 1340. No answer, lvm. Location was confirmed. /isabella QUEVEDO Signed: 09/08/2023 10:01 09/08/2023 ADDENDUM STATUS: COMPLETED Correction 1330-vet aware. /isabella QUEVEDO Signed: 09/08/2023 10:01 LORI [address]VEDO [facility]
--- OUTSIDE RECORDS SUMMARY | 2024-07-05 03:30 | XMS_ITS | Encounter Summary ---
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 Organization [facility] [place] Address [address] [place] [id number] Care Team Providers Care Platform Stapler Name Role Phone ROMANA CASTILLO Primary Care [...] Garcia's Name Patient's Relationship to Policy Garcia [facility] (MEDICAID) [facility] May 14, 2009 [id number] SAMPLE,ROCCO MOORE PATIENT [facility] MEDICAID [facility] HUMAN [facility] May 14, 2009 [id number] SAMPLE,ROCCO MOORE PATIENT MEDICAID MEDICAID [facility] [place] Jul 26, 2018 MEDICAI D [id number] SAMPLE,ROCCO MOORE PATIENT MEDICARE (WNR) MEDICARE (M) PART B November 24, 2015 PART B [id number] SAMPLE,ROCCO MOORE PATIENT MEDICARE (WNR) MEDICARE (M) PART A November 24, 2015 PART A [id number] ROCCO QUEZADA PATIENT Selected Encounter This section includes the information on record at [place] for the Encounter. Date/Time Encounter Type Encounter Description Reason Pro vider Source Aug 27, 2023 12:00 AM Outpatient Encounter EVENT (HISTORICAL) [...] 08, 2023 01:00 PM AMBULATORY - MEDICINE [place] [facility] [facility] Sep 08, 2023 01:30 PM AMBULATORY - MEDICINE [place] [facility] [place] [facility] Oct 06, 2023 09:00 AM AMBULATORY - MEDICINE [place] [facility] [place] [facility] Oct 07, 2023 01:00 PM AMBULATORY - PSYCHIATRY [facility] [place] [facility] Oct 25, 2023 11:00 AM AMBULATORY - MEDICINE [place] [facility] [place] [facility] Nov 09, 2023 09:00 AM AMBULATORY - MEDICINE [place] [facility] [place] [facility] Nov 17, 2023 09:30 AM AMBULATORY - MEDICINE [place] [facility] [place] [facility] Jan 03, 2024 11:00 AM AMBULATORY - PSYCHIATRY [facility] [place] [facility] Jan 17, 2024 03:00 PM AMBULATORY - MEDICINE [place] [facility] [place] [facility] Jan 26, 2024 09:30 AM AMBULATORY - MEDICINE [place] [facility] [place] [facility] Feb 03, 2024 03:00 PM AMBULATORY - MEDICINE [place] [facility] [place] [facility] Feb 14, 2024 11:00 AM AMBULATORY - PSYCHIATRY [place] [facility] [place] [facility] Social History: Smoking Status (Most current) [...] FORMER USER [facility] Tobacco Use History This section includes a history of the smoking, or tobacco-related health factors, that were collected on or before the date of the Encounter. The data comes from the [place] facility where the Encounter took place. Date/Time Smoking Status/Tobac co Use Comment Facility Mar 31, 2023 11:00 AM VA-TOBACCO QUIT 1 TO < 5 YRS [facility] [place] [facility] Mar 25, 2022 10:30 AM VA-TOBACCO NEVER USED [facility] [place] [facility] Mar 19, 2021 02:00 PM VA-TOBACCO FORMER USER [facility] [place] [facility] Mar 19, 2021 02:00 PM VA-TOBACCO QUIT < 1 YEAR [facility] [place] [facility] Sep 20, 2018 11:24 AM VA-TOBACCO USE DECLINED TO ANSWER [facility] [place] [facility] Oct 21, 2017 08:13 AM QUIT TOBACCO USE IN PAST YEAR [facility] [place] [facility] Dec 30, 2016 08:28 AM QUIT TOBACCO USE 1-7 YEARS AGO [facility] [place] [facility] Jun 04, 2016 08:43 AM QUIT TOBACCO USE 1-7 YEARS AGO [facility] [place] [facility] May 17, 2015 08:45 AM QUIT TOBACCO USE 1-7 YEARS AGO quit 2 years ago. [facility] [place] [facility] Jun 07, 2014 09:25 AM QUIT TOBACCO USE 1-7 YEARS AGO [facility] [place] [facility] November 30, 2013 08:44 AM QUIT TOBACCO USE IN PAST YEAR [facility] [place] [facility] May 22, 2013 10:10 AM QUIT TOBACCO USE IN PAST YEAR [facility] [place] [facility] December 01, 2012 01:54 PM QUIT TOBACCO USE IN PAST YEAR [facility] [place] [facility] Jun 07, 2012 08:16 AM V1-PT DECLINES TOBACCO CESSATION MEDS [facility] [place] [facility] Jun 07, 2012 08:16 AM V1-PT THINKING ABOUT QUIT TOBACCO USE [facility] [place] [facility] Jan 05, 2012 09:00 AM CURRENT SMOKER intermittenly [facility] [place] [facility] Jan 05, 2012 09:00 AM V1-PT DECLINES REF TO TOBACCO CESS [facility] [place] [facility] Jan 05, 2012 09:00 AM V1-PT DECLINES TOBACCO CESSATION MEDS [facility] [place] [facility] Jan 05, 2012 09:00 AM V1-PT THINKING ABOUT QUIT TOBACCO USE [facility] [place] [facility] Feb 17, 2011 09:52 AM V1-PT DECLINES TOBACCO CESSATION MEDS [facility] [place] [facility] Feb 17, 2011 09:52 AM V1-PT THINKING ABOUT QUIT [facility]ACCO [facility] [place] [facility] Aug 13, 2010 11:31 AM QUIT TOBACCO USE IN PAST YEAR [facility] [place] [facility] Feb 19, 2010 01:26 PM QUIT TOBACCO USE IN PAST YEAR [facility] [place] [facility] Sep 13, 2009 11:04 AM QUIT TOBACCO USE IN PAST YEAR [facility] [place] [facility] Feb 05, 2009 08:29 AM V1-PT DECLINES REF TO TOBACCO CESS [facility] [place] [facility] Feb 05, 2009 08:29 AM V1-PT DECLINES TOBACCO CESSATION MEDS [facility] [place] Feb 05, 2009 08:29 AM V1-PT THINKING ABOUT QUIT TOBACCO USE [facility] [place] [facility] Aug 22, 2008 09:04 AM QUIT TOBACCO USE IN PAST YEAR [facility] [place] [facility] Mar 12, 2008 10:40 AM V1-PT DECLINES REF TO TOBACCO CESS PRGM [facility] [place] [facility] Mar 12, 2008 10:40 AM V1-PT DECLINES TOBACCO CESSATION MEDS [facility] [place] [facility] Mar 12, 2008 10:40 AM V1-PT NOT INTERESTED IN QUIT TOBACCO USE [facility] [place] [facility] Mar 08, 2008 09:37 AM CURRENT SMOKER smokes one pack a day for about 10 years ago. [facility] [place] [facility]
--- OUTSIDE RECORDS SUMMARY | 2024-07-05 03:31 | XMS_ITS | Encounter Summary ---
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 [facility] [place] Organization [place] Address [address] [place] [address] Care Team Providers Care Sprayer Automatic Spray Machine Name Role Phone ROMANA CASTILLO Primary Care [...] Name Patient's Relationship to Policy Garcia [facility] (MEDICAID) MEDICAID [place] [facility] May 14, 2009 [id number] SAMPLE,ROCCO MOORE PATIENT [facility]ID [facility] May 14, 2009 [id number] SAMPLE,ROCCO MOORE PATIENT MEDICAID MEDICAID [facility] Jul 26, 2018 MEDICAI D [id number] SAMPLE,RCOCO MOORE PATIENT MEDICARE (WNR) MEDICARE (M) PART A November 24, 2015 PART A [id number] SAMPLE,ROCCO MOORE PATIENT MEDICARE (WNR) MEDICARE (M) PART B November 24, 2015 PART B [id number] SAMPLE,ROCCO MOORE PATIENT Selected Encounter This section includes the information on record at [place] for the Encounter. Date/Time Encounter Type Encounter Description Reason Pro vider Source Sep 10, 2023 12:46 PM Outpatient Encounter ADMIN PAT ACTIVTIES (MASNONCT) [...] 06, 2023 09:00 AM AMBULATORY - MEDICINE [place] [facility] [place] [facility] Oct 07, 2023 01:00 PM AMBULATORY - PSYCHIATRY [place] [facility] [place] [facility] Oct 25, 2023 11:00 AM AMBULATORY - MEDICINE [place] [facility] [place] [facility] Nov 09, 2023 09:00 AM AMBULATORY - MEDICINE [place] [facility] [place] [facility] Nov 17, 2023 09:30 AM AMBULATORY - MEDICINE [place] [facility] [place] [facility] Jan 03, 2024 11:00 AM AMBULATORY - PSYCHIATRY [place] [facility] [place] [facility] Jan 17, 2024 03:00 PM AMBULATORY - MEDICINE [place] [facility] [place] [facility] Jan 26, 2024 09:30 AM AMBULATORY - MEDICINE [place] [facility] [place] [facility] Feb 03, 2024 03:00 PM AMBULATORY - MEDICINE [place] [facility] [place] [facility] Feb 14, 2024 11:00 AM AMBULATORY - PSYCHIATRY [place] [facility] [place] [facility] Mar 06, 2024 09:00 AM AMBULATORY - MEDICINE [place] [facility] [place] [facility] Social History: Smoking Status (Most current) and [...] 31, 2023 11:00 AM VA-TOBACCO FORMER USER [facility] Tobacco Use History This section includes a history of the smoking, or tobacco-related health factors, that were collected on or before the date of the Encounter. The data comes from the [place] facility where the Encounter took place. Date/Time Smoking Status/Tobac co Use Comment Facility Mar 31, 2023 11:00 AM VA-TOBACCO QUIT 1 TO < 5 YRS [place] [facility] [place] [facility] Mar 25, 2022 10:30 AM VA-TOBACCO NEVER USED [facility] [place] [facility] Mar 19, 2021 02:00 PM VA-TOBACCO FORMER USER [place] [facility] [place] [facility] Mar 19, 2021 02:00 PM VA-TOBACCO QUIT < 1 YEAR [facility] [place] [facility] Sep 20, 2018 11:24 AM VA-TOBACCO USE DECLINED TO ANSWER [facility] [place] [facility] Oct 21, 2017 08:13 AM QUIT TOBACCO USE IN PAST YEAR [facility] [place] [facility] Dec 30, 2016 08:28 AM QUIT TOBACCO USE 1-7 YEARS AGO [facility] [place] [facility] Jun 04, 2016 08:43 AM QUIT TOBACCO USE 1-7 YEARS AGO ID [facility] [place] [facility] May 17, 2015 08:45 AM QUIT TOBACCO USE 1-7 YEARS AGO quit 2 years ago. [facility] [place] [facility] Jun 07, 2014 09:25 AM QUIT TOBACCO USE 1-7 YEARS AGO [facility] [place] [facility] November 30, 2013 08:44 AM QUIT TOBACCO USE IN PAST YEAR [facility] [place] [facility] May 22, 2013 10:10 AM QUIT TOBACCO USE IN PAST YEAR [facility] [place] [facility] December 01, 2012 01:54 PM QUIT TOBACCO USE IN PAST YEAR [facility] [place] [facility] Jun 07, 2012 08:16 AM V1-PT DECLINES TOBACCO CESSATION MEDS [facility] Jun 07, 2012 08:16 AM V1-PT THINKING ABOUT QUIT TOBACCO USE [facility] [place] [facility] Jan 05, 2012 09:00 AM CURRENT SMOKER [facility]mittenly [facility] [place] [facility] Jan 05, 2012 09:00 AM V1-PT DECLINES REF TO TOBACCO CESS PRGM [facility] [place] [facility] Jan 05, 2012 09:00 AM V1-PT DECLINES TOBACCO CESSATION MEDS [facility] [place] [facility] Jan 05, 2012 09:00 AM V1-PT THINKING ABOUT QUIT TOBACCO USE [facility] [place] [facility] Feb 17, 2011 09:52 AM V1-PT DECLINES TOBACCO [facility]ESSATION [facility] [place] [facility] Feb 17, 2011 09:52 AM V1-PT THINKING ABOUT QUIT TOBACCO USE [place] [facility] [place] [facility] Aug 13, 2010 11:31 AM QUIT TOBACCO USE IN PAST YEAR [facility] [place] [facility] Feb 19, 2010 01:26 PM QUIT TOBACCO USE IN PAST YEAR [facility] [place] [facility] Sep 13, 2009 11:04 AM QUIT TOBACCO USE IN PAST YEAR [facility] [place] [facility] Feb 05, 2009 08:29 AM V1-PT DECLINES REF TO TOBACCO CESS [facility] [place] [facility] Feb 05, 2009 08:29 AM V1-PT DECLINES TOBACCO CESSATION MEDS [facility] Feb 05, 2009 08:29 AM V1-PT THINKING ABOUT QUIT TOBACCO USE [place] [facility] [place] [facility] Aug 22, 2008 09:04 AM QUIT TOBACCO USE IN PAST YEAR [facility] [place] [facility] Mar 12, 2008 10:40 AM V1-PT DECLINES REF TO TOBACCO CESS PRGM [facility] [place] [facility] Mar 12, 2008 10:40 AM V1-PT DECLINES TOBACCO CESSATION MEDS [facility] [place] [facility] Mar 12, 2008 10:40 AM V1-PT NOT INTERESTED IN QUIT TOBACCO USE [facility] [place] [facility] Mar 08, 2008 09:37 AM CURRENT SMOKER smokes one pack a day for about 10 years ago. [facility] Encounter Notes: All associated encounter notes This section contains the clinical notes associated to the Encounter. Date/Time Encounter Note(s) Provider Source Sep 10, 2023 12:46 PM ADMINISTRATIVE NOTE: LOCAL TITLE: CCC: SCHEDULING ADMINISTRATION STANDARD TITLE: ADMINISTRATIVE NOTE DATE OF NOTE: SEP 10, 2023@12:46 ENTRY DATE: SEP 10, 2023@12:47:01 AUTHOR: JULIANNA GARNER COSIGNER: URGENCY: STATUS: COMPLETED CCC: SCHEDULING ADMINISTRATION Has ADDENDA Patient asked to have a lift for her scooter installed in her van (which she does not have yet). She asked for the consult to be placed. /divya/ JULIANNA GARNER Signed: 09/10/2023 12:48 Receipt Acknowledged By: 09/10/2023 13:22 /divya/ LULI ROSALES, RN, CNL PRIMARY CARE TEAM NURSE 09/10/2023 13:12 /divya/ Fabiola Hooker RN Primary Care Staff Nurse 09/10/2023 ADDENDUM STATUS: COMPLETED RC to Vet and consumer loan underwriter asked Vet if she had a vehicle and she stated no. She is waiting for the insurance to make a determination. She will call us back once she has a vehicle. Vet asked this consumer loan underwriter if this is something [place] will cover and consumer loan underwriter let Vet know that she was unsure. /divya/ Fabiola Hooker RN Primary Care Staff Nurse Signed: 09/10/2023 13:12 [facility]ARNER [facility]
--- OUTSIDE RECORDS SUMMARY | 2024-07-05 03:32 | XMS_ITS | Encounter Summary ---
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 Address [address] [place] [address] Care Team Providers Care Projector Booth Operator Name Role Phone ROMANA CASTILLO Primary [...] Relationship to Policy Garcia [facility] (MEDICAID) [facility]ICAID [facility] May 14, 2009 [id number] SAMPLE,ROCCO MOORE PATIENT [facility] MEDICAID [facility] May 14, 2009 [id number] SAMPLE,ROCCO MOORE PATIENT MEDICAID MEDICAID [facility] E[facility] [place] Jul 26, 2018 MEDICAI D [id number] SAMPLE,ROCCO MOORE PATIENT MEDICARE (WNR) MEDICARE (M) PART A November 24, 2015 PART A [id number] SAMPLE,ROCCO MOORE PATIENT MEDICARE (WNR) MEDICARE (M) PART B November 24, 2015 PART B [id number] [phone] [id number] ROCCO QUEZADA PATIENT Selected Encounter This section includes the information on record at [place] for the Encounter. Date/Time Encounter Type Encounter Description Reason Pro vider Source Sep 16, 2023 07:54 AM Outpatient Encounter TELEPHONE PRIMARY CARE IHE [...] - MEDICINE [place] [facility] [place] [facility] Oct 07, 2023 01:00 PM AMBULATORY - PSYCHIATRY [place] [facility] [place] [facility] Oct 25, 2023 11:00 AM AMBULATORY - MEDICINE [place] C [facility] [facility] Nov 09, 2023 09:00 AM AMBULATORY - MEDICINE [place] C [facility] [facility] Nov 17, 2023 09:30 AM AMBULATORY - MEDICINE [place] C [facility] [place] [facility] Jan 03, 2024 11:00 AM AMBULATORY - PSYCHIATRY [place] [facility] [place] [facility] Jan 17, 2024 03:00 PM AMBULATORY - MEDICINE [place] C [facility] [place] [facility] Jan 26, 2024 09:30 AM AMBULATORY - MEDICINE [place] C [facility] [place] [facility] Feb 03, 2024 03:00 PM AMBULATORY - MEDICINE [place] C [facility] [place] [facility] Feb 14, 2024 11:00 AM AMBULATORY - PSYCHIATRY [place] [facility] [place] [facility] Mar 06, 2024 09:00 AM AMBULATORY - MEDICINE [place] C [facility] [place] [facility] Social History: Smoking Status (Most current) [...] 31, 2023 11:00 AM [facility]ACCO [facility] Tobacco Use History This section includes a history of the smoking, or tobacco-related health factors, that were collected on or before the date of the Encounter. The data comes from the [place] facility where the Encounter took place. Date/Time Smoking Status/Tobac co Use Comment Facility Mar 31, 2023 11:00 AM VA-TOBACCO QUIT 1 TO < 5 YRS [place] [facility] [place] [facility] Mar 25, 2022 10:30 AM VA-TOBACCO NEVER USED [place] [facility]TR [place] [facility] Mar 19, 2021 02:00 PM VA-TOBACCO FORMER USER [place] [facility]TR [facility] [facility] Mar 19, 2021 02:00 PM VA-TOBACCO QUIT < 1 YEAR [facility] Sep 20, 2018 11:24 AM VA-TOBACCO USE [facility] [place] [facility] Oct 21, 2017 08:13 AM QUIT TOBACCO USE IN PAST YEAR [place] [facility]TR [place] [facility] Dec 30, 2016 08:28 AM QUIT TOBACCO USE 1-7 YEARS AGO [place] [facility]TR [place] [facility] Jun 04, 2016 08:43 AM QUIT TOBACCO USE 1-7 YEARS AGO [place] [facility] [place] [facility] May 17, 2015 08:45 AM QUIT TOBACCO USE 1-7 YEARS AGO quit 2 years ago. [place] [facility] [facility] Jun 07, 2014 09:25 AM QUIT TOBACCO USE 1-7 YEARS AGO [place] [facility] [place] [facility] November 30, 2013 08:44 AM QUIT TOBACCO USE IN PAST YEAR [place] CNTR [place] [facility] May 22, 2013 10:10 AM QUIT TOBACCO USE IN PAST YEAR [place] [facility]TR [place] [facility] December 01, 2012 01:54 PM QUIT TOBACCO USE IN PAST YEAR [facility] [place] [facility] Jun 07, 2012 08:16 AM V1-PT DECLINES TOBACCO CESSATION MEDS [facility] Jun 07, 2012 08:16 AM V1-PT THINKING ABOUT QUIT TOBACCO USE [place] [facility]TR [place] [facility] Jan 05, 2012 09:00 AM CURRENT SMOKER intermittenly [facility] [place] [facility] Jan 05, 2012 09:00 AM V1-PT DECLINES REF TO TOBACCO CESS PRGM [place] CNTR [place] [facility] Jan 05, 2012 09:00 AM V1-PT DECLINES TOBACCO CESSATION MEDS [facility] [place] [facility] Jan 05, 2012 09:00 AM V1-PT THINKING ABOUT QUIT TOBACCO USE [place] CNTR [place] [facility] Feb 17, 2011 09:52 AM V1-PT DECLINES TOBACCO CESSATION MEDS [facility] [place] [facility] Feb 17, 2011 09:52 AM V1-PT THINKING ABOUT QUIT TOBACCO USE [place] CNTR [place] [facility] Aug 13, 2010 11:31 AM QUIT TOBACCO USE IN PAST YEAR [facility] [place] [facility] Feb 19, 2010 01:26 PM QUIT TOBACCO USE IN PAST YEAR [facility] [place] [facility] Sep 13, 2009 11:04 AM QUIT TOBACCO USE IN PAST YEAR [facility] [place] [facility] Feb 05, 2009 08:29 AM V1-PT DECLINES REF TO TOBACCO CESS PRGM [facility] [place] [facility] Feb 05, 2009 08:29 AM V1-PT DECLINES TOBACCO CESSATION MEDS [facility] [place] [facility] Feb 05, 2009 08:29 AM V1-PT THINKING ABOUT QUIT TOBACCO USE [facility] [place] [facility] Aug 22, 2008 09:04 AM QUIT TOBACCO USE IN PAST YEAR [place] CNTR [place] [facility] Mar 12, 2008 10:40 AM V1-PT DECLINES REF TO TOBACCO CESS PRGM [place] CNTR [place] [facility] Mar 12, 2008 10:40 AM V1-PT DECLINES TOBACCO CESSATION MEDS [place] CNTR [place] [facility] Mar 12, 2008 10:40 AM V1-PT NOT INTERESTED IN QUIT TOBACCO USE [facility] [place] [facility] Mar 08, 2008 09:37 AM CURRENT SMOKER smokes one pack a day for about 10 years ago. [facility] Encounter Notes: All associated encounter notes This section contains the clinical notes associated to the Encounter. Date/Time Encounter Note(s) Provider Source Sep 16, 2023 07:54 AM PREVENTIVE MEDICIN E NURSING NOTE: LOCAL TITLE: CLINICAL REMINDERS/NURSING STANDARD TITLE: PREVENTIVE MEDICINE NURSING NOTE DATE OF NOTE: SEP 16, 2023@07:54 ENTRY DATE: SEP 16, 2023@07:54:18 AUTHOR: NIKIA CHANDLER EXP COSIGNER: URGENCY: STATUS: COMPLETED Colonoscopy GAP Reminder: Recommendations are needed in the clinical reminder system following the patient's most recent colorectal cancer screening/surveillance test (Colonoscopy, Sigmoidoscopy or CT Colonography) Colonoscopy reminder set 3 months from SEP 16, 2023. Comment: Last [facility] 09/24/14 repeat in 2yrs, in [facility] /es/ Nikia Chandler MSN RN CNL Primary Care RN Signed: 09/16/2023 07:55 NIKIA CHANDLER [facility]
--- OUTSIDE RECORDS SUMMARY | 2024-07-05 03:33 | XMS_ITS | Encounter Summary ---
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 Address [address] [place] [address] Care Team Providers Care Threat Analyst Name Role Phone ROMANA CASTILLO Primary [...] Garcia's Name Patient's Relationship to Policy Garcia [facility] (MEDICAID) [facility] May 14, 2009 [id number] SAMPLE,ROCCO MOORE PATIENT [facility] MEDICAID [facility] HUMAN [facility] May 14, 2009 [id number] SAMPLE,ROCCO MOORE PATIENT MEDICAID MEDICAID [facility] [place] Jul 26, 2018 MEDICAI D [id number] SAMPLE,ROCCO MOORE PATIENT MEDICARE (WNR) MEDICARE (M) PART A November 24, 2015 PART A [id number] [phone] SAMPLE,ROCCO MOORE PATIENT MEDICARE (WNR) MEDICARE (M) PART B November 24, 2015 PART B [id number] ROCCO QUEZADA PATIENT Selected Encounter This section includes the information on record at [place] for the Encounter. Date/Time Encounter Type Encounter Description Reason Pro vider Source Sep 07, 2023 12:00 AM Outpatient Encounter EVENT (HISTORICAL) [...] - MEDICINE [place] [facility] Sep 08, 2023 01:30 PM AMBULATORY - MEDICINE [place] [facility] Oct 06, 2023 09:00 AM AMBULATORY - MEDICINE NE C [place] [facility] Oct 07, 2023 01:00 PM AMBULATORY - PSYCHIATRY [place] [facility] [place] [facility] Oct 25, 2023 11:00 AM AMBULATORY - MEDICINE [place] C [place] [facility] Nov 09, 2023 09:00 AM AMBULATORY - MEDICINE NE C [place] [place] [facility] Nov 17, 2023 09:30 AM AMBULATORY - MEDICINE NE C [place] [facility] Jan 03, 2024 11:00 AM AMBULATORY - PSYCHIATRY [place] [facility] [place] [facility] Jan 17, 2024 03:00 PM AMBULATORY - MEDICINE NE C [place] [facility] Jan 26, 2024 09:30 AM AMBULATORY - MEDICINE NE C [facility] [place] [facility] Feb 03, 2024 03:00 PM AMBULATORY - MEDICINE NE C [place] [place] [facility] Feb 14, 2024 11:00 AM AMBULATORY - PSYCHIATRY [place] [facility] [place] [facility] Mar 06, 2024 09:00 AM AMBULATORY - MEDICINE NE C [facility] [place] [facility] Social History: Smoking Status (Most [...] 31, 2023 11:00 AM [facility] [place] [facility] Tobacco Use History This section includes a history of the smoking, or tobacco-related health factors, that were collected on or before the date of the Encounter. The data comes from the [place] facility where the Encounter took place. Date/Time Smoking Status/Tobac co Use Comment Facility Mar 31, 2023 11:00 AM VA-TOBACCO QUIT 1 TO < 5 YRS [place] [facility] [place] [facility] Mar 25, 2022 10:30 AM VA-TOBACCO NEVER USED NE [facility] [place] [facility] Mar 19, 2021 02:00 PM VA-TOBACCO FORMER USER [place] [facility] [place] [facility] Mar 19, 2021 02:00 PM VA-TOBACCO QUIT < 1 YEAR NE [facility] [place] [facility] Sep 20, 2018 11:24 AM VA-TOBACCO USE DECLINED TO ANSWER [place] [facility] [place] [facility] Oct 21, 2017 08:13 AM QUIT TOBACCO USE IN PAST YEAR NE [facility] [place] [facility] Dec 30, 2016 08:28 AM QUIT TOBACCO USE 1-7 YEARS AGO NE [facility] [place] [facility] Jun 04, 2016 08:43 AM QUIT TOBACCO USE 1-7 YEARS AGO NE [facility] [place] [facility] May 17, 2015 08:45 AM QUIT TOBACCO USE 1-7 YEARS AGO quit 2 years ago. [place] [facility] [place] [facility] Jun 07, 2014 09:25 AM QUIT TOBACCO USE 1-7 YEARS AGO NE [facility] [place] [facility] November 30, 2013 08:44 AM QUIT TOBACCO USE IN PAST YEAR NE [facility] [place] [facility] May 22, 2013 10:10 AM QUIT TOBACCO USE IN PAST YEAR NE [facility] [place] [facility] December 01, 2012 01:54 PM QUIT TOBACCO USE IN PAST YEAR VA [facility] [place] [facility] Jun 07, 2012 08:16 AM V1-PT DECLINES TOBACCO CESSATION MEDS [place] [facility] [place] [facility] Jun 07, 2012 08:16 AM V1-PT THINKING ABOUT QUIT TOBACCO USE [place] [facility] [place] [facility] Jan 05, 2012 09:00 AM CURRENT SMOKER intermittenly [place] [facility] [place] [facility] Jan 05, 2012 09:00 AM V1-PT DECLINES REF TO TOBACCO CESS PRGM [facility] [place] [facility] Jan 05, 2012 09:00 AM V1-PT DECLINES TOBACCO CESSATION MEDS [facility] [place] [facility] Jan 05, 2012 09:00 AM V1-PT THINKING ABOUT QUIT TOBACCO USE [place] [facility] [place] [facility] Feb 17, 2011 09:52 AM V1-PT DECLINES TOBACCO CESSATION MEDS [place] [facility] [place] [facility] Feb 17, 2011 09:52 AM V1-PT THINKING ABOUT QUIT TOBACCO USE [place] [facility] [place] [facility] Aug 13, 2010 11:31 AM QUIT TOBACCO USE IN PAST YEAR VA [facility] [place] [facility] Feb 19, 2010 01:26 PM QUIT TOBACCO USE IN PAST YEAR NE CNTRL [place] [facility] Sep 13, 2009 11:04 AM QUIT TOBACCO USE IN PAST YEAR [place] [facility] [place] [facility] Feb 05, 2009 08:29 AM V1-PT DECLINES REF TO TOBACCO CESS PRGM [facility]TR [place] [facility] Feb 05, 2009 08:29 AM V1-PT DECLINES TOBACCO CESSATION MEDS [facility] [place] [facility] Feb 05, 2009 08:29 AM V1-PT THINKING ABOUT QUIT TOBACCO USE [place] [facility] [place] [facility] Aug 22, 2008 09:04 AM QUIT TOBACCO USE IN PAST YEAR [facility] [place] [facility] Mar 12, 2008 10:40 AM V1-PT DECLINES REF TO TOBACCO CESS PRGM [facility] [place] [facility] Mar 12, 2008 10:40 AM V1-PT DECLINES TOBACCO CESSATION MEDS [facility] [place] [facility] Mar 12, 2008 10:40 AM V1-PT NOT INTERESTED IN QUIT TOBACCO USE [facility] [facility] Mar 08, 2008 09:37 AM CURRENT SMOKER smokes one pack a day for about 10 years ago. [facility] Encounter Notes: All associated encounter notes This section contains the clinical notes associated to the Encounter. Date/Time Encounter Note(s) Provider Source Sep 07, 2023 12:00 AM NONVA NOTE: LOCAL TITLE: NON-[facility] STANDARD TITLE: NONVA NOTE DATE OF NOTE: SEP 07, 2023 ENTRY DATE: SEP 17, 2023@12:45:22 AUTHOR: DEIDRE ADLER EXP COSIGNER: URGENCY: STATUS: COMPLETED VistA Imaging - Scanned Document SCANNED DOCUMENT SIGNATURE NOT REQUIRED Electronically Filed: 09/17/2023 by: DEIDRE ADLER [employer]OL SUPERVISOR DEIDRE ADLER [facility]
--- OUTSIDE RECORDS SUMMARY | 2024-07-05 03:33 | XMS_ITS | Encounter Summary ---
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 Address [address] [place] [address] Care Team Providers Care Advanced Clinical Specialist Name Role Phone ROMANA CASTILLO Primary [...] Patient's Relationship to Policy Garcia [facility] (MEDICAID) [facility] May 14, 2009 [id number] SAMPLE,ROCCO MOORE PATIENT [facility] MEDICAID [facility] HUMAN [facility] May 14, 2009 [id number] SAMPLE,ROCCO MOORE PATIENT MEDICAID MEDICAID [facility] E[facility] [place] Jul 26, 2018 MEDICAI D [id number] SAMPLE,ROCCO MOORE PATIENT MEDICARE (WNR) MEDICARE (M) PART A November 24, 2015 PART A [id number] SAMPLE,ROCCO MOORE PATIENT MEDICARE (WNR) MEDICARE (M) PART B November 24, 2015 PART B [id number] ROCCO QUEZADA PATIENT Selected Encounter This section includes the [place] on record at [place] for the Encounter. Date/Time Encounter Type Encounter Description Reason Pro vider Source Sep 16, 2023 12:00 AM Outpatient Encounter EVENT (HISTORICAL) [...] 06, 2023 09:00 AM AMBULATORY - MEDICINE [place] C [place] [facility] Oct 07, 2023 01:00 PM AMBULATORY - PSYCHIATRY [place] [facility] [place] [facility] Oct 25, 2023 11:00 AM AMBULATORY - MEDICINE [place] C [place] [place] [facility] Nov 09, 2023 09:00 AM AMBULATORY - MEDICINE [place] C [place] [place] [facility] Nov 17, 2023 09:30 AM AMBULATORY - MEDICINE [place] C [place] [place] [facility] Jan 03, 2024 11:00 AM AMBULATORY - PSYCHIATRY [place] [facility] [place] [facility] Jan 17, 2024 03:00 PM AMBULATORY - MEDICINE [place] C [place] [facility] Jan 26, 2024 09:30 AM AMBULATORY - MEDICINE [place] C [place] [place] [facility] Feb 03, 2024 03:00 PM AMBULATORY - MEDICINE [place] C [place] [place] [facility] Feb 14, 2024 11:00 AM AMBULATORY - PSYCHIATRY [place] [facility] [place] [facility] Mar 06, 2024 09:00 AM AMBULATORY - MEDICINE [place] C [place] [facility] Social History: Smoking Status [...] 11:00 AM [facility]BACCO [facility] Tobacco Use History This section includes a history of the smoking, or tobacco-related health factors, that were collected on or before the date of the Encounter. The data comes from the [place] facility where the Encounter took place. Date/Time Smoking Status/Tobac co Use Comment Facility Mar 31, 2023 11:00 AM VA-TOBACCO QUIT 1 TO < 5 YRS [facility] [place] [facility] Mar 25, 2022 10:30 AM VA-TOBACCO NEVER USED [facility] [place] [facility] Mar 19, 2021 02:00 PM VA-TOBACCO FORMER USER [facility] [place] [facility] Mar 19, 2021 02:00 PM VA-TOBACCO QUIT < [address] Sep 20, 2018 11:24 AM VA-TOBACCO USE DECLINED TO ANSWER [facility] [place] [facility] Oct 21, 2017 08:13 AM QUIT TOBACCO USE IN PAST YEAR [facility] [place] [facility] Dec 30, 2016 08:28 AM QUIT TOBACCO USE 1-7 YEARS AGO [facility] [place] [facility] Jun 04, 2016 08:43 AM QUIT TOBACCO USE 1-7 YEARS AGO [facility] [place] [facility] May 17, 2015 08:45 AM QUIT TOBACCO USE 1-7 YEARS AGO quit 2 years ago. [facility] [place] [facility] Jun 07, 2014 09:25 AM QUIT TOBACCO USE 1-7 YEARS AGO [place] CNT [place] [facility] November 30, 2013 08:44 AM QUIT TOBACCO USE IN PAST YEAR [facility] [place] [facility] May 22, 2013 10:10 AM QUIT TOBACCO USE IN PAST YEAR [facility] [place] [facility] December 01, 2012 01:54 PM QUIT TOBACCO USE IN PAST YEAR [facility] [place] [facility] Jun 07, 2012 08:16 AM V1-PT DECLINES TOBACCO CESSATION MEDS [facility]SN [facility] Jun 07, 2012 08:16 AM V1-PT THINKING ABOUT QUIT [facility]ACCO [facility] [place] [facility] Jan 05, 2012 09:00 AM CURRENT SMOKER intermittenly [facility] [place] [facility] Jan 05, 2012 09:00 AM V1-PT DECLINES REF TO TOBACCO CESS PRGM [place] CNTR [place] [facility] Jan 05, 2012 09:00 AM V1-PT DECLINES TOBACCO CESSATION MEDS [facility] [place] [facility] Jan 05, 2012 09:00 AM V1-PT THINKING ABOUT QUIT TOBACCO USE [place] [facility]TR [place] [facility] Feb 17, 2011 09:52 AM V1-PT DECLINES TOBACCO CESSATION MEDS [facility] [place] [facility] Feb 17, 2011 09:52 AM V1-PT THINKING ABOUT QUIT TOBACCO [facility] [place] [facility] Aug 13, 2010 11:31 AM QUIT TOBACCO USE IN PAST YEAR [facility] [place] [facility] Feb 19, 2010 01:26 PM QUIT TOBACCO USE IN PAST YEAR [facility] [place] [facility] Sep 13, 2009 11:04 AM QUIT TOBACCO USE IN PAST YEAR [facility] [place] [facility] Feb 05, 2009 08:29 AM V1-PT DECLINES REF TO TOBACCO CESS PRGM [facility] [place] [facility] Feb 05, 2009 08:29 AM V1-PT DECLINES TOBACCO CESSATION MEDS [facility] [place] [facility] Feb 05, 2009 08:29 AM V1-PT THINKING ABOUT QUIT TOBACCO USE [facility] [place] [facility] Aug 22, 2008 09:04 AM QUIT TOBACCO USE IN PAST YEAR [place] CNTR [place] [facility] Mar 12, 2008 10:40 AM V1-PT DECLINES REF TO TOBACCO CESS PRGM [place] CNTR [place] [facility] Mar 12, 2008 10:40 AM V1-PT DECLINES TOBACCO CESSATION MEDS [place] CNTR [place] [facility] Mar 12, 2008 10:40 AM V1-PT NOT INTERESTED IN QUIT TOBACCO USE [facility] [place] [facility] Mar 08, 2008 09:37 AM CURRENT SMOKER smokes one pack a day for about 10 years ago. [facility]
--- OUTSIDE RECORDS SUMMARY | 2024-07-05 03:34 | XMS_ITS | Encounter Summary ---
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 [facility] [place] Address [address] [place] [id number] Care Team Providers Care Able Bodied Seaman Name Role Phone ROMANA CASTILLO Primary Care [...] Garcia's Name Patient's Relationship to Policy Garcia [facility] (MEDICAID) [facility] May 14, 2009 [id number] SAMPLE,ROCCO MOORE PATIENT [facility] MEDICAID [facility] HUMAN [facility] May 14, 2009 [id number] SAMPLE,ROCCO MOORE PATIENT MEDICAID MEDICAID [facility] [place] Jul 26, 2018 MEDICAI D [id number] SAMPLE,ROCCO MOORE PATIENT MEDICARE (WNR) MEDICARE (M) PART A November 24, 2015 PART A [id number] SAMPLE,ROCCO MOORE PATIENT MEDICARE (WNR) MEDICARE (M) PART B November 24, 2015 PART B [id number] ROCCO QUEZADA PATIENT Selected Encounter This section includes the information on record at [place] for the Encounter. Date/Time Encounter Type Encounter Description Reason Pro vider Source Aug 31, 2023 12:00 PM Outpatient Encounter EVENT (HISTORICAL) [...] - MEDICINE [place] [facility] [place] [facility] Sep 08, 2023 01:30 PM AMBULATORY - MEDICINE [place] [facility] [place] [facility] Oct 06, 2023 09:00 AM AMBULATORY - MEDICINE [place] [facility] [facility] Oct 07, 2023 01:00 PM AMBULATORY - PSYCHIATRY [place] [facility] [place] [place] [facility] Oct 25, 2023 11:00 AM AMBULATORY - MEDICINE [place] [facility] [place] [facility] Nov 09, 2023 09:00 AM AMBULATORY - MEDICINE [place] [facility] [place] [facility] Nov 17, 2023 09:30 AM AMBULATORY - MEDICINE [place] [facility] [place] [facility] Jan 03, 2024 11:00 AM AMBULATORY - PSYCHIATRY [place] [facility] [place] [place] [facility] Jan 17, 2024 03:00 PM AMBULATORY - MEDICINE [place] [facility] [place] [facility] Jan 26, 2024 09:30 AM AMBULATORY - MEDICINE [place] [facility] [place] [facility] Feb 03, 2024 03:00 PM AMBULATORY - MEDICINE [place] [facility] [place] [facility] Feb 14, 2024 11:00 AM AMBULATORY - PSYCHIATRY [place] [facility] [place] [facility] Social History: Smoking Status (Most [...] 2023 11:00 AM VA-TOBACCO FORMER USER [facility] Tobacco Use History This section includes a history of the smoking, or tobacco-related health factors, that were collected on or before the date of the Encounter. The data comes from the [place] facility where the Encounter took place. Date/Time Smoking Status/Tobac co Use Comment Facility Mar 31, 2023 11:00 AM VA-TOBACCO QUIT 1 TO < 5 YRS [place] [facility] [place] [facility] Mar 25, 2022 10:30 AM VA-TOBACCO NEVER USED [place] [facility] [place] [facility] Mar 19, 2021 02:00 PM VA-TOBACCO FORMER USER [place] [facility] [place] [facility] Mar 19, 2021 02:00 PM VA-TOBACCO QUIT < [facility] [place] [facility] Sep 20, 2018 11:24 AM VA-TOBACCO USE DECLINED TO ANSWER [place] [facility] [place] [facility] Oct 21, 2017 08:13 AM QUIT TOBACCO USE IN PAST YEAR [place] [facility] [place] [facility] Dec 30, 2016 08:28 AM QUIT TOBACCO USE 1-7 YEARS AGO [place] [facility] [place] [place] [facility] Jun 04, 2016 08:43 AM QUIT TOBACCO USE 1-7 YEARS AGO [place] [facility] [place] [facility] May 17, 2015 08:45 AM QUIT TOBACCO USE 1-7 YEARS AGO quit 2 years ago. [place] [facility] [facility] [place] [facility] Jun 07, 2014 09:25 AM QUIT TOBACCO USE 1-7 YEARS AGO [place] [facility] [place] [facility] November 30, 2013 08:44 AM QUIT TOBACCO USE IN PAST YEAR [place] [facility] [place] [facility] May 22, 2013 10:10 AM QUIT TOBACCO USE IN PAST YEAR [place] [facility] [place] [facility] December 01, 2012 01:54 PM QUIT TOBACCO USE [facility]ST [facility] [place] [facility] Jun 07, 2012 08:16 AM V1-PT DECLINES TOBACCO CESSATION MEDS [place] [facility] [place] [place] [facility] Jun 07, 2012 08:16 AM V1-PT THINKING ABOUT QUIT TOBACCO USE [place] [facility] [place] [facility] Jan 05, 2012 09:00 AM CURRENT SMOKER intermittenly [place] [facility] [place] [facility] Jan 05, 2012 09:00 AM V1-PT DECLINES REF TO TOBACCO CESS PRGM [facility] [place] [facility] Jan 05, 2012 09:00 AM V1-PT DECLINES TOBACCO CESSATION MEDS [facility] [place] [facility] Jan 05, 2012 09:00 AM V1-PT THINKING ABOUT QUIT TOBACCO USE [facility] [place] [facility] Feb 17, 2011 09:52 AM V1-PT DECLINES TOBACCO CESSATION MEDS [place] [facility] [place] [facility] Feb 17, 2011 09:52 AM V1-PT THINKING ABOUT QUIT [facility] [place] [facility] Aug 13, 2010 11:31 AM QUIT TOBACCO USE IN PAST YEAR [facility] [place] [facility] Feb 19, 2010 01:26 PM QUIT TOBACCO USE IN PAST YEAR [facility] [place] [facility] Sep 13, 2009 11:04 AM QUIT TOBACCO USE IN PAST YEAR [facility] [place] [facility] Feb 05, 2009 08:29 AM V1-PT DECLINES REF TO TOBACCO CESS PRGM [facility] [place] [facility] Feb 05, 2009 08:29 AM V1-PT DECLINES TOBACCO CESSATION MEDS [facility] [place] [facility] Feb 05, 2009 08:29 AM V1-PT THINKING ABOUT QUIT TOBACCO USE [place] [facility] [place] [facility] Aug 22, 2008 09:04 AM QUIT TOBACCO USE IN PAST YEAR [place] [facility] [place] [facility] Mar 12, 2008 10:40 AM V1-PT DECLINES REF TO TOBACCO CESS PRGM [facility] [place] [facility] Mar 12, 2008 10:40 AM V1-PT DECLINES TOBACCO CESSATION MEDS [facility] [place] [facility] Mar 12, 2008 10:40 AM V1-PT NOT INTERESTED IN QUIT TOBACCO USE [facility] [place] [facility] Mar 08, 2008 09:37 AM CURRENT SMOKER smokes one pack a day for about 10 years ago. [facility] Encounter Notes: All associated encounter notes This section contains the clinical notes associated to the Encounter. Date/Time Encounter Note(s) Provider Source Aug 31, 2023 12:00 PM NONVA NOTE: LOCAL TITLE: NON-VA HOSPITALIZATIONS/ER STANDARD TITLE: NONVA NOTE DATE OF NOTE: AUG 31, 2023@12:00 ENTRY DATE: SEP 17, 2023@16:20:33 AUTHOR: GAVIN ESTRELLA EXP COSIGNER: URGENCY: STATUS: COMPLETED VistA Imaging - Scanned Document SCANNED DOCUMENT SIGNATURE NOT REQUIRED Electronically Filed: 09/17/2023 by: GAVIN WILLIS [facility]
--- OUTSIDE RECORDS SUMMARY | 2024-07-05 03:34 | XMS_ITS ---
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 [facility] [place] [facility] [place] Address [address] [place] [id number] Care Team Providers Care Asbestos Hazard Abatement Worker Name Role Phone ROMANA CASTILLO Primary [...] Garcia's Name Patient's Relationship to Policy Garcia [facility] (MEDICAID) [facility]ID [facility] May 14, 2009 [id number] SAMPLE[facility]ROCCO MOORE PATIENT [facility] MEDICAID [facility] HUMAN [facility] May 14, 2009 [id number] SAMPLE,ORCCO MOORE PATIENT MEDICAID MEDICAID [facility] [place] Jul 26, 2018 MEDICAI D [id number] SAMPLE,ROCCO MOORE PATIENT MEDICARE (WNR) MEDICARE (M) PART A November 24, 2015 PART A [id number] SAMPLE,ROCCO MOORE PATIENT MEDICARE (WNR) MEDICARE (M) PART B November 24, 2015 PART B [id number] ROCCO QUEZADA PATIENT Selected Encounter This section includes the information on record at [place] for the Encounter. Date/Time Encounter Type Encounter Description Reason Pro vider Source Sep 02, 2023 12:00 PM Outpatient Encounter EVENT (HISTORICAL) IHE Encounter Template Text not used by [place] Plan of Treatment: Future Appointments (+ 6 months) and Future Tests (+/- 45 days) The Plan of Treatment section includes future care activities for the patient from all [place] treatmentfacilities. This section includes future appointments and future orders which are active, pending or scheduled. Future Appointments This section includes appointments that were scheduled to occur 6 months from the date of the Encounter, up to a maximum of 20 appointments. The data comes from all [place] treatment facilities. Appointment Date/Time Appointment Type Appointme nt Facility Name Sep 08, 2023 01:00 PM AMBULATORY - MEDICINE [place] [facility] [place] [facility] Sep 08, 2023 01:30 PM AMBULATORY - MEDICINE [place] [facility] [place] [facility] Oct 06, 2023 09:00 AM AMBULATORY - MEDICINE [place] [facility] [place] [facility] Oct 07, 2023 01:00 PM AMBULATORY - PSYCHIATRY [place] [facility] [facility] Oct 25, 2023 11:00 AM AMBULATORY - MEDICINE [place] [facility] [place] [facility] Nov 09, 2023 09:00 AM AMBULATORY - MEDICINE [place] [facility] [place] [facility] Nov 17, 2023 09:30 AM AMBULATORY - MEDICINE [place] [facility] [place] [facility] Jan 03, 2024 11:00 AM AMBULATORY - PSYCHIATRY [place] [facility] [facility] Jan 17, 2024 03:00 PM AMBULATORY - MEDICINE [place] [facility] [place] [facility] Jan 26, 2024 09:30 AM AMBULATORY - MEDICINE [place] [facility] [place] [facility] Feb 03, 2024 03:00 PM AMBULATORY - MEDICINE [place] [facility] [facility] Feb 14, 2024 11:00 AM AMBULATORY - PSYCHIATRY [place] [facility] [facility] Social History: Smoking Status (Most current) and Tobacco Use (All prior to encounter date) This section includes the most current, and the historical, smoking and tobacco- related health factors from the [place] facility where the Encounter took place. Current Smoking Status This section includes the most current smoking, or tobacco-related health factor, from the [place] facility where the Encounter took place. Date/Time Current Smoking Status Comment Facil it Mar 31, 2023 11:00 AM VA-TOBACCO FORMER USER [facility] Tobacco Use History This section includes a history of the smoking, or tobacco-related health factors, that were collected on or before the date of the Encounter. The data comes from the [place] facility where the Encounter took place. Date/Time Smoking Status/Tobac co Use Comment Facility Mar 31, 2023 11:00 AM VA-TOBACCO QUIT 1 TO < 5 YRS [place] [facility] [facility] Mar 25, 2022 10:30 AM VA-TOBACCO NEVER USED [place] [facility] [place] [facility] Mar 19, 2021 02:00 PM VA-TOBACCO FORMER USER [place] [facility] [place] [facility] Mar 19, 2021 02:00 PM VA-TOBACCO QUIT < 1 YE[facility] [place] [facility] Sep 20, 2018 11:24 AM VA-TOBACCO USE DECLINED TO ANSWER [place] [facility] [place] [facility] Oct 21, 2017 08:13 AM QUIT TOBACCO USE IN PAST YEAR [place] [facility] [place] [facility] Dec 30, 2016 08:28 AM QUIT TOBACCO USE 1-7 YEARS AGO [place] [facility] [place] [facility] Jun 04, 2016 08:43 AM QUIT TOBACCO USE 1-7 YEARS AGO [place] [facility] [place] [facility] May 17, 2015 08:45 AM QUIT TOBACCO USE 1-7 YEARS AGO quit 2 years ago. [place] [facility] [place] [facility] Jun 07, 2014 09:25 AM QUIT TOBACCO USE 1-7 YEARS AGO [place] [facility] [place] [facility] November 30, 2013 08:44 AM QUIT TOBACCO USE IN PAST YEAR [place] [facility] [place] [facility] May 22, 2013 10:10 AM QUIT TOBACCO USE IN PAST YEAR [place] [facility] [place] [facility] December 01, 2012 01:54 PM QUIT TOBACCO USE [facility]ST [facility] [place] [facility] Jun 07, 2012 08:16 AM V1-PT DECLINES TOBACCO CESSATION MEDS [place] [facility] [place] [facility] Jun 07, 2012 08:16 AM V1-PT THINKING ABOUT QUIT TOBACCO USE [place] [facility] [place] [facility] Jan 05, 2012 09:00 AM CURRENT SMOKER intermittenly [place] [facility] [place] [facility] Jan 05, 2012 09:00 AM V1-PT DECLINES REF TO TOBACCO CESS [facility] [place] [facility] Jan 05, 2012 09:00 AM V1-PT DECLINES TOBACCO CESSATION MEDS [place] [facility] [facility] Jan 05, 2012 09:00 AM V1-PT THINKING ABOUT QUIT TOBACCO USE [place] [facility] [facility] Feb 17, 2011 09:52 AM V1-PT DECLINES TOBACCO CESSATION MEDS [place] [facility] [facility] Feb 17, 2011 09:52 AM V1-PT THINKING ABOUT QUIT [facility]ACCO [facility] [place] [facility] Aug 13, 2010 11:31 AM QUIT TOBACCO USE IN PAST YEAR [facility] [place] [facility] Feb 19, 2010 01:26 PM QUIT TOBACCO USE IN PAST YEAR [place] [facility] [place] [facility] Sep 13, 2009 11:04 AM QUIT TOBACCO USE [facility]ST YE[facility] [place] [facility] Feb 05, 2009 08:29 AM V1-PT DECLINES REF TO TOBACCO CESS PR[facility] [place] [facility] Feb 05, 2009 08:29 AM V1-PT DECLINES TOBACCO CESSATION MEDS [facility] [place] [facility] Feb 05, 2009 08:29 AM V1-PT THINKING ABOUT QUIT TOBACCO USE [place] [facility] [facility] Aug 22, 2008 09:04 AM QUIT TOBACCO USE IN PAST YEAR [place] [facility] [facility] Mar 12, 2008 10:40 AM V1-PT DECLINES REF TO TOBACCO CESS PRGM [place] [facility] [facility] Mar 12, 2008 10:40 AM V1-PT DECLINES TOBACCO CESSATION MEDS [place] [facility] [facility] Mar 12, 2008 10:40 AM V1-PT NOT INTERESTED IN QUIT TOBACCO USE [facility] [place] [facility] Mar 08, 2008 09:37 AM CURRENT SMOKER smokes one pack a day for about 10 years ago. [place] [facility] [facility] Encounter Notes: All associated encounter notes This section contains the clinical notes associated to the Encounter. Date/Time Encounter Note(s) Provider Source Sep 02, 2023 12:00 PM NONVA NOTE: LOCAL TITLE: NON-[facility] STANDARD TITLE: NONVA NOTE DATE OF NOTE: SEP 02, 2023@12:00 ENTRY DATE: SEP 17, 2023@16:17:31 AUTHOR: GAVIN ESTRELLA EXP VANESSAIGNER: URGENCY: STATUS: COMPLETED NON-[facility] Has ADDENDA VistA Imaging - Scanned Document SCANNED DOCUMENT SIGNATURE NOT REQUIRED Electronically Filed: 09/17/2023 by: GAVIN ESTRELLA 09/27/2023 ADDENDUM STATUS: COMPLETED This plan of care was removed and replaced with a signed copy. /divya/ MORRO HUMPHREY MASTER CONTROL TECHNICIAN Signed: 09/27/2023 14:02 GAVIN ESTRELLA [place] [facility] [facility] [facility] Sep 02, 2023 12:00 PM NONVA NOTE: LOCAL TITLE: NON-[facility] STANDARD TITLE: NONVA NOTE DATE OF NOTE: SEP 02, 2023@12:00 ENTRY DATE: SEP 29, 2023@05:30:39 AUTHOR: GAVIN ESTRELLAIGNER: URGENCY: STATUS: COMPLETED VistA Imaging - Scanned Document SCANNED DOCUMENT SIGNATURE NOT REQUIRED Electronically Filed: 09/29/2023 by: GAVIN WILLIS [facility]
--- OUTSIDE RECORDS SUMMARY | 2024-07-05 03:35 | XMS_ITS ---
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 [place] Organization [facility] [place] Address [address] [place] [id number] Care Team Providers Care Career Services Manager Name Role Phone ROMANA CASTILLO Primary [...] Policy Garcia [facility] (MEDICAID) [facility] May 14, 2009 [id number] SAMPLE,ROCCO MOORE PATIENT [facility]ICAID [facility] May 14, 2009 [id number] SAMPLE,ROCCO MOORE PATIENT MEDICAID MEDICAID [facility] Jul 26, 2018 MEDICAI D [id number] SAMPLE,ROCCO MOORE PATIENT MEDICARE (WNR) MEDICARE (M) PART A November 24, 2015 PART A [id number] SAMPLE,ROCCO MOORE PATIENT MEDICARE (WNR) MEDICARE (M) PART B November 24, 2015 PART B [id number] ROCCO QUEZADA PATIENT Selected Encounter This section includes the information on record at [place] for the Encounter. Date/Time Encounter Type Encounter Description Reason Pro vider Source Sep 22, 2023 09:39 AM Outpatient Encounter PAIN CLINIC IHE Encounter [...] - MEDICINE [place] [facility] [place] [facility] Oct 07, 2023 01:00 PM AMBULATORY - PSYCHIATRY [place] [facility] [place] [facility] [place] Oct 25, 2023 11:00 AM AMBULATORY - MEDICINE HI C [facility] [place] [facility] [place] Nov 09, 2023 09:00 AM AMBULATORY - MEDICINE HI C [facility] [place] [facility] [place] Nov 17, 2023 09:30 AM AMBULATORY - MEDICINE HI C [facility] [place] [facility] [place] Jan 03, 2024 11:00 AM AMBULATORY - PSYCHIATRY [place] [facility] [place] [facility] [place] Jan 17, 2024 03:00 PM AMBULATORY - MEDICINE HI C [facility] [place] [facility] [place] Jan 26, 2024 09:30 AM AMBULATORY - MEDICINE HI C [facility] [place] [facility] [place] Feb 03, 2024 03:00 PM AMBULATORY - MEDICINE HI C [facility] [facility] [place] Feb 14, 2024 11:00 AM AMBULATORY - PSYCHIATRY [place] [facility] [place] [facility] [place] Mar 06, 2024 09:00 AM AMBULATORY - MEDICINE HI C [facility] [place] [facility] [place] Social History: Smoking Status (Most current) and [...] 31, 2023 11:00 AM VA-TOBACCO FORMER USER [facility] Tobacco Use History This section includes a history of the smoking, or tobacco-related health factors, that were collected on or before the date of the Encounter. The data comes from the [place] facility where the Encounter took place. Date/Time Smoking Status/Tobac co Use Comment Facility Mar 31, 2023 11:00 AM VA-TOBACCO QUIT 1 TO < 5 YRS [place] [facility] [place] [facility] Mar 25, 2022 10:30 AM VA-TOBACCO NEVER USED [place] [facility] [place] [facility] Mar 19, 2021 02:00 PM VA-TOBACCO FORMER USER [place] [facility] [place] [facility] Mar 19, 2021 02:00 PM VA-TOBACCO QUIT < 1 YEAR [facility] [place] [facility] Sep 20, 2018 11:24 AM VA-TOBACCO USE DECLINED TO ANSWER [facility] [place] [facility] Oct 21, 2017 08:13 AM QUIT TOBACCO USE IN PAST YEAR HI [facility] [place] [facility] Dec 30, 2016 08:28 AM QUIT TOBACCO USE 1-7 YEARS AGO HI [facility] [facility] Jun 04, 2016 08:43 AM QUIT TOBACCO USE 1-7 YEARS AGO [place] [facility] [place] [facility] May 17, 2015 08:45 AM QUIT TOBACCO USE 1-7 YEARS AGO quit 2 years ago. [place] [facility] [place] [facility] Jun 07, 2014 09:25 AM QUIT TOBACCO USE 1-7 YEARS AGO [place] [facility] [place] [facility] November 30, 2013 08:44 AM QUIT TOBACCO USE IN PAST YEAR HI [facility] [facility] May 22, 2013 10:10 AM QUIT TOBACCO USE IN PAST YEAR [place] [facility] [facility] December 01, 2012 01:54 PM QUIT TOBACCO USE IN PAST YEAR HI [facility] [facility] Jun 07, 2012 08:16 AM V1-PT DECLINES TOBACCO CESSATION MEDS [facility] Jun 07, 2012 08:16 AM V1-PT THINKING ABOUT QUIT TOBACCO USE [place] [facility] [place] [facility] Jan 05, 2012 09:00 AM CURRENT SMOKER intermittenly [facility] [place] [facility] [place] Jan 05, 2012 09:00 AM V1-PT DECLINES REF TO TOBACCO CESS PRGM [place] [facility] [facility] Jan 05, 2012 09:00 AM V1-PT DECLINES TOBACCO CESSATION MEDS [facility] [place] [facility] Jan 05, 2012 09:00 AM V1-PT THINKING ABOUT QUIT TOBACCO USE [place] [facility] [place] [facility] Feb 17, 2011 09:52 AM V1-PT DECLINES TOBACCO CESSATION MEDS [facility] [place] [facility] Feb 17, 2011 09:52 AM V1-PT THINKING ABOUT QUIT TOBACCO USE [place] [facility] [place] [facility] Aug 13, 2010 11:31 AM QUIT TOBACCO USE IN PAST YEAR [facility] [place] [facility] Feb 19, 2010 01:26 PM QUIT TOBACCO USE IN PAST YEAR [facility] [place] [facility] Sep 13, 2009 11:04 AM QUIT TOBACCO USE IN PAST YEAR HI [facility] [facility] Feb 05, 2009 08:29 AM V1-PT DECLINES REF TO TOBACCO CESS PRGM [facility] [place] [facility] Feb 05, 2009 08:29 AM V1-PT DECLINES TOBACCO CESSATION MEDS [facility] [place] [facility] Feb 05, 2009 08:29 AM V1-PT THINKING ABOUT QUIT TOBACCO USE [facility] [place] [facility] Aug 22, 2008 09:04 AM QUIT TOBACCO USE IN PAST YEAR HI [facility] [facility] Mar 12, 2008 10:40 AM V1-PT DECLINES REF TO TOBACCO CESS PRGM HI [facility] [place] [facility] Mar 12, 2008 10:40 AM V1-PT DECLINES TOBACCO CESSATION MEDS HI [facility] [facility] Mar 12, 2008 10:40 AM V1-PT NOT INTERESTED IN QUIT TOBACCO USE HI [facility] [facility] Mar 08, 2008 09:37 AM CURRENT SMOKER smokes one pack a day for about 10 years ago. [facility] Encounter Notes: All associated encounter notes This section contains the clinical notes associated to the Encounter. Date/Time Encounter Note(s) Provider Source Sep 22, 2023 09:39 AM TELEPHONE ENCOUNTE R NOTE: LOCAL TITLE: TELEPHONE NOTE/SPECIALTY CLINIC STANDARD TITLE: TELEPHONE ENCOUNTER NOTE DATE OF NOTE: SEP 22, 2023@09:39 ENTRY DATE: SEP 22, 2023@09:39:54 AUTHOR: BEULAH LOPEZ EXP COSIGNER: URGENCY: STATUS: COMPLETED TELEPHONE NOTE/SPECIALTY CLINIC Has ADDENDA vet lm on pain clinic vm. singer songwriter called back and vet states she is going to run out of oxycodone this weekend. She is all set on her buprenorphine. Please advise /divya/ BEULAH LOPEZ ADVANCED TEMPERING MACHINE OPERATOR Signed: 09/22/2023 09:41 Receipt Acknowledged By: 09/22/2023 13:19 /divya/ Gal Solorio MD STAFF PHYSICIAN 09/22/2023 13:41 /es/ URBANO FOSTER, PHARM.D CLINICAL PHARMACIST PRACTITIONER 09/22/2023 ADDENDUM STATUS: COMPLETED rx ordered for bean picker on 09/23. /divya/ Gal Solorio MD STAFF PHYSICIAN Signed: 09/22/2023 13:20 09/22/2023 ADDENDUM STATUS: COMPLETED singer songwriter called vet to notify her can bean picker refill on 09/24/2023 /isabella LOPEZ ADVANCED TEMPERING MACHINE OPERATOR Signed: 09/22/2023 13:28 BEULAH LOPEZ [place] [facility]
--- OUTSIDE RECORDS SUMMARY | 2024-07-05 03:35 | XMS_ITS ---
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 [facility] [place] Address [address] [place] [address] Care Team Providers Care Timber Estimator Name Role Phone ROMANA CASTILLO Primary Care [...] Name Patient's Relationship to Policy Garcia [facility] (MEDICAID) [facility]ICAID [facility] May 14, 2009 [id number] SAMPLE,ROCCO MOORE PATIENT [facility] MEDICAID [facility] May 14, 2009 [id number] SAMPLE,ROCCO MOORE PATIENT MEDICAID MEDICAID [facility] [place] Jul 26, 2018 MEDICAI D [id number] SAMPLE,ROCCO MOORE PATIENT MEDICARE (WNR) MEDICARE (M) PART A November 24, 2015 PART A [id number] SAMPLE,ROCCO MOORE PATIENT MEDICARE (WNR) MEDICARE (M) PART B November 24, 2015 PART B [id number] [phone] SAMPLE,ROCCO MOORE PATIENT Selected Encounter This section includes the information on record at [place] for the Encounter. Date/Time Encounter Type Encounter Description Reason Provider Source Oct 07, 2023 01:00 PM OFFICE O/P EST LOW 20 MIN [facility] - IND ICD-10-CM F41.9 Anxiety disorder, unspecified BAYRON SCOTT MD I[facility] Encounter Template Text not used by [place] Assessments - Encounter Diagnoses This section includes the primary and secondary diagnoses documented for the Encounter. Date/Time Primary/Secondary Diagnosis Diagnosis Name Provider Source Oct 07, 2023 01:22 PM PRIMARY Anxiety disorder, unspecified BAYRON SCOTT MD [place] [facility] [place] [facility] Oct 07, 2023 01:22 PM SECONDARY Insomnia, unspecified BAYRON SCOTT MD [place] [facility] [place] [facility] Plan of Treatment: Future Appointments (+ 6 months) and Future Tests (+/- 45 days) The Plan of Treatment section includes future care activities for the patient [facility] [place] [facility] This section includes future appointments and [...] - MEDICINE [place] C [facility] [place] [facility] Nov 09, 2023 09:00 AM AMBULATORY - MEDICINE [place] C [facility] [place] [facility] Nov 17, 2023 09:30 AM AMBULATORY - MEDICINE NM C [facility] [place] [facility] Jan 03, 2024 11:00 AM AMBULATORY - PSYCHIATRY [place] [facility] [facility] Jan 17, 2024 03:00 PM AMBULATORY - MEDICINE NM C [facility] [place] [facility] Jan 26, 2024 09:30 AM AMBULATORY - MEDICINE NM C [facility] [place] [facility] Feb 03, 2024 03:00 PM AMBULATORY - MEDICINE NM C [facility] [place] [facility] Feb 14, 2024 11:00 AM AMBULATORY - PSYCHIATRY [place] [facility] [facility] Mar 06, 2024 09:00 AM AMBULATORY - MEDICINE NM C [facility] [place] [facility] Apr 03, 2024 11:30 AM AMBULATORY - MEDICINE [facility] [place] [facility] Social History: Smoking Status (Most current) [...] 31, 2023 11:00 AM VA-TOBACCO [facility] Tobacco Use History This section includes a history of the smoking, or tobacco-related health factors, that were collected on or before the date of the Encounter. The data comes from the [place] facility where the Encounter took place. Date/Time Smoking Status/Tobac co Use Comment Facility Mar 31, 2023 11:00 AM VA-TOBACCO QUIT 1 TO < 5 YRS [place] [facility] [place] [facility] Mar 25, 2022 10:30 AM VA-TOBACCO NEVER USED [place] [facility] [place] [facility] Mar 19, 2021 02:00 PM VA-TOBACCO FORMER USER [place] [facility] [place] [facility] Mar 19, 2021 02:00 PM VA-TOBACCO QUIT < 1 YEAR [place] [facility] [place] [facility] Sep 20, 2018 11:24 AM VA-TOBACCO USE DECLINED TO ANSWER [place] [facility] [place] [facility] Oct 21, 2017 08:13 AM QUIT TOBACCO USE IN PAST YEAR [place] [facility] [place] [facility] Dec 30, 2016 08:28 AM QUIT TOBACCO USE 1-7 YEARS AGO [facility] [place] [place] [facility] Jun 04, 2016 08:43 AM QUIT TOBACCO USE 1-7 YEARS AGO [facility] [place] [facility] May 17, 2015 08:45 AM QUIT TOBACCO USE 1-7 YEARS AGO quit 2 years ago. [place] [facility] [place] [facility] Jun 07, 2014 09:25 AM QUIT TOBACCO USE 1-7 YEARS AGO NM [facility] [place] [facility] November 30, 2013 08:44 AM QUIT TOBACCO USE IN PAST YEAR [place] [facility] [place] [facility] May 22, 2013 10:10 AM QUIT TOBACCO USE IN PAST YEAR [place] [facility] [facility] December 01, 2012 01:54 PM QUIT TOBACCO USE IN PAST YEAR [facility] [place] [facility] Jun 07, 2012 08:16 AM V1-PT DECLINES TOBACCO CESSATION MEDS [facility] [place] [facility] Jun 07, 2012 08:16 AM V1-PT THINKING ABOUT QUIT TOBACCO USE [facility] [place] [facility] Jan 05, 2012 09:00 AM CURRENT SMOKER intermittenly [facility] [place] [facility] Jan 05, 2012 09:00 AM V1-PT DECLINES REF TO TOBACCO CESS PRGM [place] [facility] [place] [facility] Jan 05, 2012 09:00 AM V1-PT DECLINES TOBACCO CESSATION MEDS [facility] [place] [facility] Jan 05, 2012 09:00 AM V1-PT THINKING ABOUT QUIT TOBACCO USE [facility] [place] [facility] Feb 17, 2011 09:52 AM V1-PT DECLINES TOBACCO CESSATION MEDS [facility] [place] [facility] Feb 17, 2011 09:52 AM V1-PT THINKING ABOUT QUIT TOBACCO USE [facility] [place] [facility] Aug 13, 2010 11:31 AM QUIT TOBACCO USE IN PAST YEAR [place] [facility] [facility] Feb 19, 2010 01:26 PM QUIT TOBACCO USE [facility]ST [facility] [place] [facility] Sep 13, 2009 11:04 AM QUIT TOBACCO USE IN PAST YEAR NM [facility] [place] [facility] Feb 05, 2009 08:29 AM V1-PT DECLINES REF TO TOBACCO CESS PRGM [place] [facility] [place] [facility] Feb 05, 2009 08:29 AM V1-PT DECLINES TOBACCO CESSATION MEDS [facility] [place] [facility] Feb 05, 2009 08:29 AM V1-PT THINKING ABOUT QUIT TOBACCO USE NM [facility] [place] [facility] Aug 22, 2008 09:04 AM QUIT TOBACCO USE IN PAST YEAR [place] [facility] [place] [facility] Mar 12, 2008 10:40 AM V1-PT DECLINES REF [facility]BACCO CESS [facility] Mar 12, 2008 10:40 AM V1-PT DECLINES TOBACCO CESSATION MEDS [facility] Mar 12, 2008 10:40 AM V1-PT NOT INTERESTED IN QUIT TOBACCO USE [facility] Mar 08, 2008 09:37 AM CURRENT SMOKER smokes one pack a day for about 10 years ago. [facility] Encounter Notes: All associated encounter notes This section contains the clinical notes associated to the Encounter. Date/Time Encounter Note(s) Provider Source Oct 07, 2023 07:57 AM ACCOUNTING OF DISCLOSURES NOTE: LOCAL TITLE: STATE PRESCRIPTION DRUG MONITORING PROGRAM STANDARD TITLE: ACCOUNTING OF DISCLOSURES NOTE DATE OF NOTE: OCT 07, 2023@07:57:20 ENTRY DATE: OCT 07, 2023@07:57:20 AUTHOR: MATEO SCOTT EXP COSIGNER: URGENCY: STATUS: COMPLETED This PDMP query was submitted by Mateo Scott MD, MD. The clinical justification for this PDMP query is to review controlled substances prescribed outside of the [place], and any additional information that may become available, as an important component of standard clinical care, and in accordance with [facility] policy. Patient information was shared with the PDMP [facility] [place]. No prescription(s) for controlled substances outside the [place] were found in the last 90 days. /divya/ MATEO SCOTT JR, MD STAFF PSYCHIATRIST Signed: 10/07/2023 13:21 MATEO SCOTT MD [facility] Oct 07, 2023 07:56 AM PSYCHIATRY NOTE: LOCAL TITLE: PSYCHIATRY/FOLLOW-UP NOTE STANDARD TITLE: PSYCHIATRY NOTE DATE OF NOTE: OCT 07, 2023@07:56 ENTRY DATE: OCT 07, 2023@07:56:56 AUTHOR: MATEO SCOTT EXP COSIGNER: URGENCY: STATUS: COMPLETED Medications were reconciled with and she declines a copy of her medication list. Active Outpatient Medications: 1) APIXABAN 5MG TAB TAKE ONE TABLET BY MOUTH EVERY 12 HOURS 2) ATORVASTATIN CALCIUM 80MG TAB TAKE ONE TABLET BY MOUTH ONCE DAILY FOR CHOLESTEROL 3) BUPRENORPHINE HCL 2MG SUBLINGUAL TAB DISSOLVE ONE TABLET UNDER THE TONGUE THREE TIMES A DAY 4) CLONAZEPAM 0.5MG TAB TAKE ONE TABLET BY MOUTH EVERY MORNING AND TAKE ONE- HALF TABLET TWICE DAILY NEEDED 5) DILTIAZEM (EQV-TIAZAC) 180MG 24HR CAP TAKE ONE CAPSULE BY MOUTH ONCE DAILY 6) LISINOPRIL 40MG TAB TAKE ONE TABLET BY MOUTH ONCE DAILY TO CONTROL BLOOD PRESSURE 7) OXYCODONE HCL 5MG TAB NOT SA TAKE TWO TABLETS BY MOUTH EVERY 4 HOURS NEEDED FOR PAIN 8) TEMAZEPAM 30MG CAP TAKE ONE CAPSULE BY MOUTH AT BEDTIME NEEDED 9) THEOPHYLLINE (JOSE-24) 400MG SA CAP TAKE ONE CAPSULE BY MOUTH ONCE DAILY FOR COPD 1) Non-VA ALBUTEROL 100/IPRATRO 20MCG 120D PO INHL 1 PUFF BY MOUTH FOUR TIMES A DAY AFTER MEALS AND AT BEDTIME 2) Non-VA OMEPRAZOLE 20MG CAP,EC 20MG BY MOUTH ONCE DAILY 3) Non-VA OXYGEN MISCELLANEOUS DIRECTED 4) Non-VA SULFAMETHOXAZOLE 800/TRIMETH 160MG TAB 1 TABLET BY MOUTH TWICE DAILY 5) Non-VA TETANUS & DIPHTHERIA TOXOID 0.5ML INTRAMUSCULARLY NOW 6) Non-VA BQQMLOZPRSIK34.5/VILANTERO L25MCG 30D INH 1 INHALATION BY MOUTH ONCE DAILY REID QUEZADA is a 63 yo, female who was [facility] as an visit for 20 minutes for medication management. Two identifiers were used. CC: I'm going through pain clinic with Dr. Solorio (for her buprenorphine). I'm doing fine. Umair was getting the clonazepam and temazepam from her letter of credit document examiner and he retired. Umair states she has been on the same dose of clonazepam an temazepam for 4.5 years. Clonazepam recommended by her letter of credit document examiner and stated the clonazepam. No alcohol or substance use, no. No complaints, no cravings, and no adverse side effects from current medications were reported, no . Mood is stable, good [facility] and it helps with the depression . Sleep and appetite are both, good. Discussed continuation of present medications as above. Patient education given including that benzodiazepines are not indicted long-term and that there is a possible interaction with opioids causing respiratory depression. Umair is on a BiPAP machine, I've been on that for years . Umair declines trying to taper off of benzodiazepines and states they tried before and it didn't work and current meds work for her. She requests continuation. Also discussed not taking anyone else's medications or giving her medications to anyone else and to secure and protect her medications from theft and children. Vet is agreeable. MSE: REID QUEZADA is an obese, 63 yo, female who is casually dressed wearing sweatpants, a sweatshirt, a hooded sweatshirt, an O2 cannula, a hooded bubble jacket, and she ambulates in a motorized scooter. She has good personal hygiene. She is alert and oriented in all spheres, pleasant and cooperative with good contact during interview. Speech is goal directed with normal kinetics. Mood is euthymic and affect is full and appropriate to thought content. Memory appears to be intact. No suicidal or homicidal ideations, nope. No hallucinations or delusions were elicited. Good general fund of knowledge. Insight and judgement is good. Assessment: Anxiety NOS. Insomnia Plan: Continue present medications as above. Encouraged vet to take medications as prescribed. RTC in 2-3 months or earlier if needed. Vet states PCP is not willing to take over refills of clonazepam and temazepam. BMI>30/>24.99 High Risk: Patient declines to discuss weight management. Patient declined weight discussion. Discussed revisiting at a future visit. /divya/ MATEO SCOTT JR, MD STAFF PSYCHIATRIST Signed: 10/07/2023 13:23 MATEO SCOTT MD [place] [facility] [place] [facility] Sep 21, 2023 01:56 PM ACCOUNTING OF DISCLOSURES NOTE: LOCAL TITLE: STATE PRESCRIPTION DRUG MONITORING PROGRAM STANDARD TITLE: ACCOUNTING OF DISCLOSURES NOTE DATE OF NOTE: SEP 21, 2023@13:56:23 ENTRY DATE: SEP 21, 2023@13:56:23 AUTHOR: MATEO SCOTT EXP COSIGNER: URGENCY: STATUS: COMPLETED This PDMP query was submitted by Mateo Scott MD, MD. The clinical justification for this PDMP query is to review controlled substances prescribed outside of the [facility], and any additional information that may become available, as an important component of standard clinical care, and in accordance with [facility] policy. Patient information was shared with the PDMP [employer] [place]. Prescription(s) filled outside the [facility] in the last 90 days are noted. However, they do not raise significant safety concerns and do not influence the treatment plan at this time. Hydromorphone /es/ MATEO SCOTT JR, MD STAFF PSYCHIATRIST Signed: 09/21/2023 13:57 MATEO SCOTT MD [place] [facility]
--- OUTSIDE RECORDS SUMMARY | 2024-07-05 03:36 | XMS_ITS | Encounter Summary ---
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 [place] [facility] [place] Organization [facility] [facility] [place] Address [address] [place] [id number] Care Team Providers Care Digital Media Director Name Role Phone ROMANA CASTILLO Primary [...] Garcia's Name Patient's Relationship to Policy Garcia [facility] (MEDICAID) [facility] May 14, 2009 [id number] SAMPLE,ROCCO MOORE PATIENT [facility] MEDICAID [facility] May 14, 2009 [id number] SAMPLE,ROCCO MOORE PATIENT MEDICAID MEDICAID [facility] EST[facility] Jul 26, 2018 MEDICAI D [id number] SAMPLE,ROCCO MOORE PATIENT MEDICARE (WNR) MEDICARE (M) PART A November 24, 2015 PART A [id number] SAMPLE,ROCCO MOORE PATIENT MEDICARE (WNR) MEDICARE (M) PART B November 24, 2015 PART B [id number] ROCCO QUEZADA PATIENT Selected Encounter This section includes the information on record at NE for the Encounter. Date/Time Encounter Type Encounter Description Reason Pro vider Source Sep 10, 2023 12:00 PM Outpatient Encounter EVENT (HISTORICAL) [...] - MEDICINE [place] C [facility] [place] [facility] Oct 07, 2023 01:00 PM AMBULATORY - PSYCHIATRY NE [facility] [place] [facility] Oct 25, 2023 11:00 AM AMBULATORY - MEDICINE NE C [facility]L [facility] [facility] Nov 09, 2023 09:00 AM AMBULATORY - MEDICINE NE C N[facility]L [facility] [facility] Nov 17, 2023 09:30 AM AMBULATORY - MEDICINE NE C N[facility]L [facility] [place] [facility] Jan 03, 2024 11:00 AM AMBULATORY - PSYCHIATRY NE [facility] [place] [facility] Jan 17, 2024 03:00 PM AMBULATORY - MEDICINE NE C NTRL [facility] [facility] Jan 26, 2024 09:30 AM AMBULATORY - MEDICINE NE C NTRL [facility] [facility] Feb 03, 2024 03:00 PM AMBULATORY - MEDICINE NE C NTRL [facility] [place] [facility] Feb 14, 2024 11:00 AM AMBULATORY - PSYCHIATRY NE CNTRL [facility] [place] [facility] Mar 06, 2024 09:00 AM AMBULATORY - MEDICINE NE C [facility] [place] [facility] Social History: Smoking Status [...] 31, 2023 11:00 AM VA-TOBACCO [facility] Tobacco Use History This section includes a history of the smoking, or tobacco-related health factors, that were collected on or before the date of the Encounter. The data comes from the [place] facility where the Encounter took place. Date/Time Smoking Status/Tobac co Use Comment Facility Mar 31, 2023 11:00 AM VA-TOBACCO QUIT 1 TO < 5 YRS [facility] [place] [facility] Mar 25, 2022 10:30 AM VA-TOBACCO NEVER USED [facility] [place] [facility] Mar 19, 2021 02:00 PM VA-TOBACCO FORMER USER [facility] [place] [facility] Mar 19, 2021 02:00 PM VA-TOBACCO QUIT < 1 YEAR [facility] Sep 20, 2018 11:24 AM VA-TOBACCO USE DECLINED TO ANSWER [facility] [place] [facility] Oct 21, 2017 08:13 AM QUIT TOBACCO USE IN PAST YEAR [facility] [place] [facility] Dec 30, 2016 08:28 AM QUIT TOBACCO USE 1-7 YEARS AGO [facility] [place] [facility] Jun 04, 2016 08:43 AM QUIT TOBACCO USE 1-7 YEARS AGO [facility] [place] [facility] May 17, 2015 08:45 AM QUIT TOBACCO USE 1-7 YEARS AGO quit 2 years ago. [facility] [place] [facility] Jun 07, 2014 09:25 AM QUIT TOBACCO USE 1-7 YEARS AGO NE CNT [facility] [place] [facility] November 30, 2013 08:44 AM QUIT TOBACCO USE IN PAST YEAR [facility] [place] [facility] May 22, 2013 10:10 AM QUIT TOBACCO USE IN PAST YEAR [facility] [place] [facility] December 01, 2012 01:54 PM QUIT TOBACCO USE IN PAST YEAR [facility] [place] [facility] Jun 07, 2012 08:16 AM V1-PT DECLINES TOBACCO CESSATION MEDS [facility] WSN [facility] Jun 07, 2012 08:16 AM V1-PT THINKING ABOUT QUIT [facility]ACCO [facility] [place] [facility] Jan 05, 2012 09:00 AM CURRENT SMOKER intermittenly NE CNTR [facility] [place] [facility] Jan 05, 2012 09:00 AM V1-PT DECLINES REF TO TOBACCO CESS PRGM NE CNTR [facility] [place] [facility] Jan 05, 2012 09:00 AM V1-PT DECLINES TOBACCO CESSATION MEDS [facility] [place] [facility] Jan 05, 2012 09:00 AM V1-PT THINKING ABOUT QUIT TOBACCO USE NE CNTR [facility] [place] [facility] Feb 17, 2011 09:52 AM V1-PT DECLINES TOBACCO CESSATION MEDS [facility] [place] [facility] Feb 17, 2011 09:52 AM V1-PT THINKING ABOUT QUIT TOBACCO USE NE CNTR [facility] [facility] Aug 13, 2010 11:31 AM QUIT TOBACCO USE IN PAST YEAR [facility] [place] [facility] Feb 19, 2010 01:26 PM QUIT TOBACCO USE IN PAST YEAR [facility] [place] [facility] Sep 13, 2009 11:04 AM QUIT TOBACCO USE IN PAST YEAR [facility] [place] [facility] Feb 05, 2009 08:29 AM V1-PT DECLINES REF TO TOBACCO CESS PRGM [facility] [place] [facility] Feb 05, 2009 08:29 AM V1-PT DECLINES TOBACCO CESSATION MEDS [facility] [place] [facility] Feb 05, 2009 08:29 AM V1-PT THINKING ABOUT QUIT TOBACCO USE [facility] [place] [facility] Aug 22, 2008 09:04 AM QUIT TOBACCO USE IN PAST YEAR NE CNTR [facility] [place] [facility] Mar 12, 2008 10:40 AM V1-PT DECLINES REF TO TOBACCO CESS PRGM NE CNTR [facility] [place] [facility] Mar 12, 2008 10:40 AM V1-PT DECLINES TOBACCO CESSATION MEDS NE CNTR [facility] [place] [facility] Mar 12, 2008 10:40 AM V1-PT NOT INTERESTED IN QUIT TOBACCO USE NE CNTR [facility] [place] [facility] Mar 08, 2008 09:37 AM CURRENT SMOKER smokes one pack a day for about 10 years ago. [facility] [place] [facility] Encounter Notes: All associated encounter notes This section contains the clinical notes associated to the Encounter. Date/Time Encounter Note(s) Provider Source Sep 10, 2023 12:00 PM NONVA NOTE: LOCAL TITLE: NON-[facility] STANDARD TITLE: NONVA NOTE DATE OF NOTE: SEP 10, 2023@12:00 ENTRY DATE: SEP 22, 2023@15:10:50 AUTHOR: NIKOLAS DALY COSIGNER: URGENCY: STATUS: COMPLETED VistA Imaging - Scanned Document SCANNED DOCUMENT SIGNATURE NOT REQUIRED Electronically Filed: 09/22/2023 by: MERCEDES DALY Welfare Analyst MERCEDES DALY [facility]
--- OUTSIDE RECORDS SUMMARY | 2024-07-05 03:37 | XMS_ITS | Encounter Summary ---
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 ([place]) Organization Department of Veter[facility] [place] Address [address] [place] [id number] Care Team Providers Care Fountain Manager Name Role Phone ROMANA CASTILLO Primary [...] Relationship to Policy Garcia [facility] (MEDICAID) [facility] May 14, 2009 [id number] SAMPLE,ROCCO MOORE PATIENT [facility] MEDICAID [facility] May 14, 2009 [id number] SAMPLE,ROCCO MOORE PATIENT MEDICAID MEDICAID [facility] [place] Jul 26, 2018 MEDICAI D [id number] SAMPLE,ROCCO MOORE PATIENT MEDICARE (WNR) MEDICARE (M) PART A November 24, 2015 PART A [id number] SAMPLE,ROCCO MOORE PATIENT MEDICARE (WNR) MEDICARE (M) PART B November 24, 2015 PART B [id number] ROCCO QUEZADA PATIENT Selected Encounter This section includes the information on record at ID for the Encounter. Date/Time Encounter Type Encounter Description Reason Pro vider Source Jan 25, 2024 09:57 AM Outpatient Encounter PAIN CLINIC [facility] Encounter [...] Appointment Type Appointme nt Facility Name Jan 26, 2024 09:30 AM AMBULATORY - MEDICINE [place] C [facility] [place] [facility] Feb 03, 2024 03:00 PM AMBULATORY - MEDICINE ID C [facility] [place] [facility] Feb 14, 2024 11:00 AM AMBULATORY - PSYCHIATRY [facility] [place] [facility] Mar 06, 2024 09:00 AM AMBULATORY - MEDICINE ID C [facility] [place] [facility] Apr 03, 2024 11:30 AM AMBULATORY - MEDICINE ID C [facility] [place] [facility] Apr 13, 2024 11:00 AM AMBULATORY - PSYCHIATRY [facility] [place] [facility] Apr 13, 2024 02:00 PM AMBULATORY - MEDICINE VA C [facility]L [facility] [place] [facility] Apr 13, 2024 03:00 PM AMBULATORY - MEDICINE ID C NTRL [facility] [place] [facility] May 02, 2024 11:00 AM AMBULATORY - MEDICINE ID C NTRL [facility] [place] [facility] May 15, 2024 11:30 AM AMBULATORY - PSYCHIATRY [facility] [place] [facility] May 25, 2024 11:30 AM AMBULATORY - MEDICINE VA C NTRL [facility] [place] [facility] Jul 13, 2024 10:00 AM AMBULATORY - MEDICINE ID C NTRL [facility] [facility] Active, Pending, and Scheduled Orders This section includes a listing of several types of active, pending, and scheduled orders, including clinic medications orders, diagnostic test orders, procedure orders and consult orders; where the start date of the order is 45 days before the date of the Encounter or 45 days after the date of theEncounter. The data comes from all ID treatment facilities. Test Date/Time Test Type Test Details Facility Name Jan 17, 2024 12:00 AM Laboratory - Chemistry Order BASIC METABOLIC PANEL (non-fasting) BLOOD (SST-SERUM) [facility] Jan 17, 2024 12:00 AM Laboratory - Chemistry Order LIPID PANEL, NON FASTING BLOOD (SST-SERUM) [facility] Jan 17, 2024 12:00 AM Laboratory - Chemistry Order LIVER FUNCTION BLOOD (SST-SERUM) [facility] Jan 17, 2024 12:00 AM Laboratory - Chemistry Order TSH BLOOD (SST-SERUM) [facility] Jan 17, 2024 12:00 AM Laboratory - Chemistry Order MICROALBUMIN CREATININE RATIO PANEL URINE (RANDOM) [facility] Social History: Smoking Status (Most current) [...] place. Date/Time Current Smoking Status Comment [facility] Mar 31, 2023 11:00 AM [facility]ACCO [facility] Tobacco Use History This section includes a history of the smoking, or tobacco-related health factors, that were collected on or before the date of the Encounter. The data comes from the ID facility where the Encounter took place. Date/Time Smoking Status/Tobac co Use Comment Facility Mar 31, 2023 11:00 AM VA-TOBACCO QUIT 1 TO < 5 YRS [facility] Mar 25, 2022 10:30 AM VA-TOBACCO NEVER USED ID [facility] Mar 19, 2021 02:00 PM VA-TOBACCO FORMER USER ID CNTR [facility] Mar 19, 2021 02:00 PM VA-TOBACCO QUIT < 1 YEAR [facility] Sep 20, 2018 11:24 AM VA-TOBACCO USE DECLINED TO ANSWER [facility] [place] [place] [facility] Oct 21, 2017 08:13 AM QUIT TOBACCO USE IN PAST YEAR [place] [facility] [place] [facility] Dec 30, 2016 08:28 AM QUIT TOBACCO USE 1-7 YEARS AGO [place] [facility] [place] [facility] Jun 04, 2016 08:43 AM QUIT TOBACCO USE 1-7 YEARS AGO [place] [facility] [place] [facility] May 17, 2015 08:45 AM QUIT TOBACCO USE 1-7 YEARS AGO quit 2 years ago. [facility] [place] [facility] Jun 07, 2014 09:25 AM QUIT TOBACCO USE 1-7 YEARS AGO ID [facility]TR [facility] [place] [facility] November 30, 2013 08:44 AM QUIT TOBACCO USE IN PAST YEAR ID [facility] [place] [facility] May 22, 2013 10:10 AM QUIT TOBACCO USE IN PAST YEAR [facility] [place] [facility] December 01, 2012 01:54 PM QUIT TOBACCO USE IN PAST YEAR [facility] [place] [facility] [facility] Jun 07, 2012 08:16 AM V1-PT DECLINES TOBACCO CESSATION MEDS [facility] Jun 07, 2012 08:16 AM V1-PT THINKING ABOUT QUIT TOBACCO USE [facility] [place] [facility] Jan 05, 2012 09:00 AM CURRENT SMOKER intermittenly [facility] Jan 05, 2012 09:00 AM V1-PT DECLINES REF TO TOBACCO CESS [facility] [place] [facility] Jan 05, 2012 09:00 AM V1-PT DECLINES TOBACCO CESSATION MEDS [facility] [place] [facility] Jan 05, 2012 09:00 AM V1-PT THINKING ABOUT QUIT TOBACCO USE [facility] [place] [facility] Feb 17, 2011 09:52 AM V1-PT DECLINES TOBACCO CESSATION MEDS [facility] [place] [facility] Feb 17, 2011 09:52 AM V1-PT THINKING ABOUT QUIT TOBACCO USE [facility] [place] [facility] Aug 13, 2010 11:31 AM QUIT TOBACCO USE IN PAST YEAR [facility] [place] [facility] Feb 19, 2010 01:26 PM QUIT TOBACCO USE IN PAST YEAR [facility] Sep 13, 2009 11:04 AM QUIT TOBACCO USE IN PAST YEAR [facility] Feb 05, 2009 08:29 AM V1-PT DECLINES REF TO TOBACCO CESS PRGM [facility] Feb 05, 2009 08:29 AM V1-PT DECLINES TOBACCO CESSATION MEDS [facility] Feb 05, 2009 08:29 AM V1-PT THINKING ABOUT QUIT TOBACCO USE [facility] Aug 22, 2008 09:04 AM QUIT TOBACCO USE IN PAST YEAR [facility] Mar 12, 2008 10:40 AM V1-PT DECLINES REF TO TOBACCO CESS PRGM [facility] Mar 12, 2008 10:40 AM V1-PT DECLINES TOBACCO CESSATION MEDS [facility] Mar 12, 2008 10:40 AM V1-PT NOT INTERESTED IN QUIT TOBACCO USE [facility] Mar 08, 2008 09:37 AM CURRENT SMOKER smokes one pack a day for about 10 years ago. [facility] Encounter Notes: All associated encounter notes This section contains the clinical notes associated to the Encounter. Date/Time Encounter Note(s) Provider Source Jan 25, 2024 09:57 AM TELEPHONE ENCOUNTE R NOTE: LOCAL TITLE: TELEPHONE NOTE/SPECIALTY CLINIC STANDARD TITLE: TELEPHONE ENCOUNTER NOTE DATE OF NOTE: JAN 25, 2024@09:57 ENTRY DATE: JAN 25, 2024@09:58 AUTHOR: BEULAH LOPEZ EXP COSIGNER: URGENCY: STATUS: COMPLETED Call attempt was made to remind vet they have a VVC appt with the Pain clinic on 01/26/2024 at 930am. No answer, lvm. /divya/ BEULAH LOPEZ ADVANCED HEADLIGHT ADJUSTER Signed: 01/25/2024 09:59 BEULAH LOPEZ [facility]
--- OUTSIDE RECORDS SUMMARY | 2024-07-05 03:38 | XMS_ITS | Encounter Summary ---
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 [place] Organization [facility] [place] [place] Address [address] [place] [id number] Care Team Providers Care Track Moving Machine Operator Name Role Phone ROMANA CASTILLO [...] Name Patient's Relationship to Policy Garcia [facility] (MEDICAID) MEDICAID [facility] May 14, 2009 [id number] SAMPLE,ROCCO MOORE PATIENT [facility] MEDICAID [facility] May 14, 2009 [id number] SAMPLE,ROCCO MOORE PATIENT MEDICAID MEDICAID [facility] ESTEFANY Jul 26, 2018 MEDICAI D [id number] SAMPLE,ROCCO MOORE PATIENT MEDICARE (WNR) MEDICARE (M) PART A November 24, 2015 PART A [id number] SAMPLE,ROCCO MOORE PATIENT MEDICARE (WNR) MEDICARE (M) PART B November 24, 2015 PART B [id number] ROCCO QUEZADA PATIENT Selected Encounter This section includes the information on record at [place] for the Encounter. Date/Time Encounter Type Encounter Description Reason Pro vider Source Feb 08, 2024 12:56 PM Outpatient Encounter TELEPHONE TRIAGE IHE Encounter Template Text not used by [place] Plan of Treatment: Future Appointments (+ 6 months) and Future Tests (+/- 45 days) The Plan of Treatment section includes future care activities for the patient from all [place] treatmentfacilities. This section includes future appointments and future orders which are active, pending or scheduled. Future Appointments This section includes appointments that were scheduled to occur 6 months from the date of the Encounter, up to a maximum of 20 appointments. The data comes from all [place] treatment [facility]. Appointment Date/Time Appointment Type Appointme nt Facility Name Feb 14, 2024 11:00 AM AMBULATORY PSYCHIATRY [place] [facility] [place] [facility] Mar 06, 2024 09:00 AM AMBULATORY MEDICINE [facility] [place] [facility] Apr 03, 2024 11:30 AM AMBULATORY - MEDICINE NM C [facility] [place] [facility] Apr 13, 2024 11:00 AM AMBULATORY PSYCHIATRY [place] [facility] [place] [facility] Apr 13, 2024 02:00 PM AMBULATORY MEDICINE [facility] [place] [facility] Apr 13, 2024 03:00 PM AMBULATORY MEDICINE NM [facility] [place] [facility] May 02, 2024 11:00 AM AMBULATORY - MEDICINE NM C [facility] [place] [facility] May 15, 2024 11:30 AM AMBULATORY PSYCHIATRY [place] [facility] [place] [facility] May 25, 2024 11:30 AM AMBULATORY - MEDICINE [place] [facility] [place] [facility] Jul 13, 2024 10:00 AM AMBULATORY - MEDICINE [facility] [place] [facility] Active, Pending, and Scheduled Orders This section includes a listing of several types of active, pending, and scheduled orders, including clinic medications orders, diagnostic test orders, procedure orders and consult orders; where the start date of the order is 45 days before the date of the Encounter or 45 days after the date of theEncounter. The data comes from all [facility]. Test Date/Time Test Type Test Details Facility Name Jan 17, 2024 12:00 AM Laboratory - Chemistry Order LIPID PANEL, NON FASTING [facility]LOOD (S[facility]UM[facility] Jan 17, 2024 12:00 AM Laboratory - Chemistry Order BASIC METABOLIC PANEL (non-fasting) BLOOD (SST[facility]SERUM) [facility] Jan 17, 2024 12:00 AM Laboratory - Chemistry Order LIVER FUNCTION BLOOD (SST-SERUM) [facility] Jan 17, 2024 12:00 AM Laboratory - Chemistry Order TSH BLOOD (SST[facility]SERUM) [facility] Jan 17, 2024 12:00 AM Laboratory - Chemistry Order MICROALBUMIN CREATININE RATIO PANEL URINE (RANDOM) SP [facility] Lab Results: +/- 30 days of the encounter This section includes the Chemistry and Hematology Lab Results on record with [facility] for the [facility]. Radiology Reports and Pathology Reports are provided separately, in subsequent sections. Lab Results This section contains the Chemistry/Hematology Results that were resulted 30 days before or 30 daysafter the date of the Encounter. Date/Time Source Result Type Result - Unit Interpretation Reference Range Comment Mar 06, 2024 09:56 AM [facility] VITAMIN D (25-OH) Specimen Type: SERUM No comment entered. Ordering Provider: Sherrie CASTILLO Report Released Date/Time: Mar 06, 2024 09:36 AM Reporting Lab: [address] [address] Performing Lab: [address] [address] VITAMIN D (25-OH) 20 ng/mL 20-50 Mar 06, 2024 09:56 AM [facility] IRON & TIBC PANEL Specimen Type: SERUM No comment entered. Ordering Provider: Sherrie CASTILLO Report Released Date/Time: Mar 06, 2024 09:36 AM Reporting Lab: [address] [address] Performing Lab: [address] [address] TIBC 364 ug/dL 204-475 IRON 36 ug/dL L 40-160 Transferrin Saturation 9.9 L 20.0-50.0 Mar 06, 2024 09:56 AM [facility] FERRITIN Specimen Type: SERUM No comment entered. Ordering Provider: Sherrie CASTILLO Report Released Date/Time: Mar 06, 2024 09:36 AM Reporting Lab: [address] [address] Performing Lab: [address] [address] FERRITIN 52 ng/mL 10-200 Mar 06, 2024 09:56 AM [facility] HEMOGLOBIN A1C PANEL Specimen Type: BLOOD Comment: Values obtained from A1C measurements can vary. For atypical A1C assays, a reported value of 7.0 could actually be between 6.72 and 7.28 if measured by a reference method. A reported value of 9.0 could actually be between 8.73 and 9.27. Ref: http://www.ngs p.org/CAPdata. asp Ordering Provider: Sherrie CASTILLO Report Released Date/Time: Mar 06, 2024 09:36 AM Reporting Lab: [address] [address] Performing Lab: [address] [address] HEMOGLOBIN A1C 5.4 4.0-5.6 Mar 06, 2024 09:56 AM [facility] MICROALBUMIN CREATININE RATIO PANEL Specimen Type: URINE No comment entered. Ordering Provider: Sherrie CASTILLO Report Released Date/Time: Mar 06, 2024 09:36 AM Reporting Lab: [address] [address] Performing Lab: [address] [address] MICROALBUMIN/C REATININE RATIO 251.1 mg/g H 0-29.9 MICROALBUMIN,Q UANTITATIVE 11.2 mg/dL RR UNAVAIL CREATININE URINE 44.60 mg/dL Mar 06, 2024 09:56 AM [facility] BASIC METABOLIC PANEL (non-fasting) Specimen Type: SERUM No comment entered. Ordering Provider: Sherrie CASTILLO Report Released Date/Time: Mar 06, 2024 09:36 AM Reporting Lab: [address] [address] Performing Lab: [address] [address] UREA NITROGEN 28 mg/dL H 7-25 GLUCOSE 130 mg/dL H 65-100 SODIUM 142 mmol/L 135-145 POTASSIUM 4.8 mmol/L 3.5-5.0 CHLORIDE 97 mmol/L L 100-110 CO2 33 meq/L H 20-30 CREATININE, Serum 1.00 mg/dL 0.50-1.40 eGFR(CKD-EPI 2020) 63 mL/min >60 Mar 06, 2024 09:56 AM [facility] CBC AND DIFF (AUTO) Specimen Type: BLOOD No comment entered. Ordering Provider: Sherrie CASTILLO Report Released Date/Time: Mar 06, 2024 09:36 AM Reporting Lab: [address] [address] Performing Lab: [address] [address] WBC 12.33 10*3/uL H 4.50-11.00 RBC 3.92 10*6/uL L 3.93-5.16 HGB 9.7 g/dL L 12-15.2 HCT 33.7 L 36.6-45.6 MCV 86.0 fL 82-99 MCHC 28.8 g/dL L 30.8-35.1 PLT 280 10*3/uL 140-360 RDW-CV 15.8 12.0-16.0 MONO, ABS 0.90 10*3/uL 0.30-1.10 MCH 24.7 pg L 26.2-32.6 NEUT % 72.8 43.7-75.8 LYMPH % 15.1 14.0-42.3 MONO % 7.3 5.1-13.7 EOS % 3.8 0.4-6.8 BASO % 0.4 0.1-2.0 NEUT, ABS 8.98 10*3/uL H 2.20-7.60 LYMPH, ABS 1.86 10*3/uL 1.00-3.20 EOS, ABS 0.47 10*3/uL H 0.03-0.44 BASO, ABS 0.05 10*3/uL 0.01-0.13 IMMATURE GRAN % 0.6 0.0-0.7 IMMATURE GRAN, ABS 0.07 10*3/uL H 0.00-0.06 NRBC % 0.0 0.0-0.0 NRBC, ABS 0.00 10*3/uL 0.00-0.00 Social History: Smoking Status (Most current) and [...] took place. Date/Time Current Smoking Status Comment [facility] Mar 31, 2023 11:00 AM VA-TOBACCO [facility] Tobacco Use History This section includes a history of the smoking, or tobacco-related health factors, that were collected on or before the date of the Encounter. The data comes from the [place] facility where the Encounter took place. Date/Time Smoking Status/Tobac co Use Comment Facility Mar 31, 2023 11:00 AM VA-TOBACCO QUIT 1 TO < 5 YRS [facility] [place] [facility] Mar 25, 2022 10:30 AM VA-TOBACCO NEVER USED [place] [facility] [place] [facility] Mar 19, 2021 02:00 PM VA-TOBACCO FORMER USER [place] [facility] [place] [facility] Mar 19, 2021 02:00 PM VA-TOBACCO QUIT < 1 YEAR [facility] [place] [facility] Sep 20, 2018 11:24 AM VA-TOBACCO USE DECLINED TO ANSWER [place] [facility] [place] [facility] Oct 21, 2017 08:13 AM QUIT TOBACCO USE IN PAST YEAR [place] [facility] [place] [facility] Dec 30, 2016 08:28 AM QUIT TOBACCO USE 1-7 YEARS AGO [facility] [place] [facility] Jun 04, 2016 08:43 AM QUIT TOBACCO USE 1-7 YEARS AGO [facility] [place] [facility] May 17, 2015 08:45 AM QUIT TOBACCO USE 1-7 YEARS AGO quit 2 years ago. [facility] [place] [facility] Jun 07, 2014 09:25 AM QUIT TOBACCO USE 1-7 YEARS AGO [facility] [place] [facility] November 30, 2013 08:44 AM QUIT TOBACCO USE IN PAST YEAR [facility] [place] [facility] May 22, 2013 10:10 AM QUIT TOBACCO USE IN PAST YEAR [place] [facility] [place] [facility] December 01, 2012 01:54 PM QUIT [facility]AC[facility] [place] [facility] Jun 07, 2012 08:16 AM V1-PT DECLINES TOBACCO CESSATION MEDS [facility] [place] [facility] Jun 07, 2012 08:16 AM V1-PT THINKING ABOUT QUIT TOBACCO USE [facility] [place] [facility] Jan 05, 2012 09:00 AM CURRENT SMOKER intermittenly [facility] [place] [facility] Jan 05, 2012 09:00 AM V1-PT DECLINES REF TO TOBACCO CESS PRGM [facility] [place] [facility] Jan 05, 2012 09:00 AM V1-PT DECLINES TOBACCO CESSATION MEDS [facility] [place] [facility] Jan 05, 2012 09:00 AM V1-PT THINKING ABOUT QUIT TOBACCO USE [place] [facility] [place] [facility] Feb 17, 2011 09:52 AM V1-PT DECLINES TOBACCO CESSATION MEDS [facility] [place] [facility] Feb 17, 2011 09:52 AM V1-PT THINKING ABOUT QUIT TOBACCO USE [facility] [place] [facility] Aug 13, 2010 11:31 AM QUIT TOBACCO USE IN PAST YEAR [facility] [place] [facility] Feb 19, 2010 01:26 PM QUIT TOBACCO USE IN PAST YEAR [facility] [place] [facility] Sep 13, 2009 11:04 AM QUIT TOBACCO USE IN PAST YEAR [facility] Feb 05, 2009 08:29 AM V1-PT DECLINES REF TO TOBACCO CESS PRGM [facility] Feb 05, 2009 08:29 AM V1-PT DECLINES TOBACCO CESSATION MEDS [facility] Feb 05, 2009 08:29 AM V1-PT THINKING ABOUT QUIT TOBACCO USE [facility] Aug 22, 2008 09:04 AM QUIT TOBACCO USE IN PAST YEAR [facility] Mar 12, 2008 10:40 AM V1-PT DECLINES REF TO TOBACCO CESS PRGM [facility] Mar 12, 2008 10:40 AM V1-PT DECLINES TOBACCO CESSATION MEDS [facility] Mar 12, 2008 10:40 AM V1-PT NOT INTERESTED IN QUIT TOBACCO USE [facility] Mar 08, 2008 09:37 AM CURRENT SMOKER smokes one pack a day for about 10 years ago. [facility] Encounter Notes: All associated encounter notes This section contains the clinical notes associated to the Encounter. Date/Time Encounter Note(s) Provider Source Feb 08, 2024 12:56 PM RN PROGRESS NOTE: [facility] TITLE: CCC: CLINICAL TRIAGE STANDARD TITLE: RN PROGRESS NOTE DATE OF NOTE: FEB 08, 2024@12:56:50 ENTRY DATE: FEB 08, 2024@12:56:50 AUTHOR: LEANNA SOSA COSIGNER: URGENCY: STATUS: COMPLETED Patient Demographics Patient Name: REID QUEZADA Patient Primary [address]: [address] [place] [id number] Patient Primary Phone: [phone] Patient : 1960 Patient Age: 64 Caller/Recipient Relation to Patient: Self Emergency Contact: HARVEY DRAKE Triage Summary Conducted triage/discussed symptoms Utilized the Triage Tool: No Nurse's Recommendation / WHEN: Now Nurse's Recommendation / WHERE: ED Other Patient Disposition Patient/Caregiver agrees to plan of care: Yes Patient WHERE: ED Other Patient WHEN: Now Nursing Plan and Disposition Referred patient to higher level of care Instructed to go to Emergency Room (ER) Advised of Financial Disclaimer: Patient advised that recommendation for care provided during the call does not constitute an approval or authorization for payment by the [place] or its staff. Patient advised to report a community ED visit to the [facility] Office of Community Care at within 72 hours. 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 States she signed out of the hospital ama last pm. is requesting to speak w/pact to discuss what are you doing about my renal status , inquiring about recent lab results. agreeable to returning to er to complete w/u for possible renal failure [address] [address] Main number: [phone] call disconnect by prior to completion of triage questioning, she is unable to recall what meds/ testing was completed in er or specifics of visit, states they wanted to do an ultrasound, but I left states she will return now & disconnected call. ++++[place] is requesting pact callback to cell phone to discuss Message sent to 's PACT team via CPRS/CRM, View alerted 2 Pact Team members/Nurse/s PER VISN 1 Protocol for f/u. Caller/[place] verbalizes understanding of the information provided. Advised caller/[place] that a note will be forwarded to the provider and/or the intensive care ambulance paramedic for review, further recommendations, and/or follow-up. Advised of 24 hour availability of clinical call center at [phone] to answer questions, address concerns & to provide assistance in navigating healthcare for veterans. Clinical Contact Center Codes Clinic/Location: V1 CWM PHONE SILVERIO ALEJANDRE /divya/ LEANNA SOSA RN VISN1 SILVERIO Signed: 02/08/2024 12:57 Receipt Acknowledged By: 02/08/2024 13:17 /es/ OLGA GREEN, MSN, RN, CNL PRIMARY CARE TEAM NURSE 02/08/2024 13:07 /divya/ Fabiola Hooker, manager highway Staff Nurse LEANNA SOSA [facility]
--- OUTSIDE RECORDS SUMMARY | 2024-07-05 03:38 | XMS_ITS | Encounter Summary ---
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ID [facility] May 14, 2009 [id number] SAMPLE,ROCCO MOORE PATIENT MEDICAID MEDICAID [facility] Jul 26, 2018 MEDICAI D [id number] SAMPLE,ROCCO MOORE PATIENT MEDICARE (WNR) MEDICARE (M) PART A November 24, 2015 PART A [id number] SAMPLE,ROCCO MOORE PATIENT MEDICARE (WNR) MEDICARE (M) PART B November 24, 2015 PART B [id number] ROCCO QUEZADA PATIENT Selected Encounter This section includes the information on record at ID for the Encounter. Date/Time Encounter Type Encounter Description Reason Pro vider Source Feb 02, 2024 09:51 AM Outpatient Encounter PAIN CLINIC IHE Encounter Template Text not used by ID Plan of Treatment: Future Appointments (+ 6 months) and Future Tests (+/- 45 days) The Plan of Treatment section includes future care activities for the patient from all [facility]. This section includes future appointments and future orders which are active, pending or scheduled. Future Appointments This section includes appointments that were scheduled to occur 6 months from the date of the Encounter, up to a maximum of 20 appointments. The data comes from all ID treatment facilities. Appointment Date/Time Appointment Type Appointme nt Facility Name Feb 03, 2024 03:00 PM AMBULATORY - MEDICINE [place] [place] [facility] Feb 14, 2024 11:00 AM AMBULATORY - PSYCHIATRY ID [facility] [place] [facility] Mar 06, 2024 09:00 AM AMBULATORY - MEDICINE ID C [facility] [place] [facility] Apr 03, 2024 11:30 AM AMBULATORY - MEDICINE ID C [facility] [place] [facility] Apr 13, 2024 11:00 AM AMBULATORY - PSYCHIATRY ID [facility] [place] [facility] Apr 13, 2024 02:00 PM AMBULATORY - MEDICINE ID C [facility] [place] [facility] Apr 13, 2024 03:00 PM AMBULATORY - MEDICINE ID C [facility] [place] [facility] May 02, 2024 11:00 AM AMBULATORY - MEDICINE ID C [facility] [place] [facility] May 15, 2024 11:30 AM AMBULATORY - PSYCHIATRY ID [facility] [place] [facility] May 25, 2024 11:30 AM AMBULATORY - MEDICINE ID C [facility] [place] [facility] Jul 13, 2024 10:00 AM AMBULATORY - MEDICINE [facility] N[facility] [place] [facility] Active, Pending, and Scheduled Orders This [...] Order LIPID PANEL, NON FASTING BLOOD (SST-SERUM) [facility] [facility] Jan 17, 2024 12:00 AM Laboratory - Chemistry Order BASIC METABOLIC PANEL (non-fasting) BLOOD (SST-SERUM) [facility] [place] [facility] Jan 17, 2024 12:00 AM Laboratory - Chemistry Order LIVER FUNCTION BLOOD (SST-SERUM) [facility] [place] [facility] Jan 17, 2024 12:00 AM Laboratory - Chemistry Order TSH BLOOD (SST-SERUM) [facility] Jan 17, 2024 12:00 AM Laboratory - Chemistry Order MICROALBUMIN CREATININE RATIO PANEL URINE (RANDOM) [facility] Social History: Smoking Status (Most current) [...] 31, 2023 11:00 AM VA-TOBACCO FORMER USER ID [facility] [place] [facility] Tobacco Use History This section includes a history of the smoking, or tobacco-related health factors, that were collected on or before the date of the Encounter. The data comes from the ID facility where the Encounter took place. Date/Time Smoking Status/Tobac co Use Comment Facility Mar 31, 2023 11:00 AM VA-TOBACCO QUIT 1 TO < 5 YRS ID [facility] [place] [facility] Mar 25, 2022 10:30 AM VA-TOBACCO NEVER USED ID [facility] [place] [facility] Mar 19, 2021 02:00 PM VA-TOBACCO FORMER USER ID [facility] [place] [facility] Mar 19, 2021 02:00 PM VA-TOBACCO QUIT < 1 YEAR ID [facility] [place] [facility] Sep 20, 2018 11:24 AM VA-TOBACCO USE DECLINED TO ANSWER ID [facility] [place] [facility] Oct 21, 2017 08:13 AM QUIT TOBACCO USE [facility]ST YEAR [facility] [place] [facility] Dec 30, 2016 08:28 AM QUIT TOBACCO USE 1-7 YEARS AGO ID [facility]TR [place] [facility] Jun 04, 2016 08:43 AM QUIT TOBACCO USE 1-7 YEARS AGO ID [facility]TR [place] [facility] May 17, 2015 08:45 AM QUIT TOBACCO USE 1-7 YEARS AGO quit 2 years ago. ID [facility]TR [place] [facility] Jun 07, 2014 09:25 AM QUIT TOBACCO USE 1-7 YEARS AGO ID [facility]TR [place] [facility] November 30, 2013 08:44 AM QUIT TOBACCO USE IN PAST YEAR [facility] [place] [facility] May 22, 2013 10:10 AM QUIT TOBACCO USE IN PAST YEAR ID [facility]TR [place] [facility] December 01, 2012 01:54 PM QUIT TOBACCO USE IN PAST YEAR [facility] [place] [facility] Jun 07, 2012 08:16 AM V1-PT DECLINES TOBACCO CESSATION MEDS [facility] [place] [facility] Jun 07, 2012 08:16 AM V1-PT THINKING ABOUT QUIT TOBACCO USE [facility] [place] [place] [facility] Jan 05, 2012 09:00 AM CURRENT SMOKER intermittenly [facility] [place] [facility] Jan 05, 2012 09:00 AM V1-PT DECLINES REF TO TOBACCO CESS PRGM [facility] [place] [facility] Jan 05, 2012 09:00 AM V1-PT DECLINES TOBACCO CESSATION MEDS [facility] [place] [facility] Jan 05, 2012 09:00 AM V1-PT THINKING ABOUT QUIT TOBACCO USE [facility] [place] [facility] Feb 17, 2011 09:52 AM V1-PT DECLINES TOBACCO CESSATION MEDS [facility] [place] [facility] Feb 17, 2011 09:52 AM V1-PT THINKING ABOUT QUIT TOBACCO USE ID [facility]TR [place] [facility] Aug 13, 2010 11:31 AM QUIT TOBACCO USE IN PAST YEAR [facility] [place] [facility] Feb 19, 2010 01:26 PM QUIT TOBACCO USE IN PAST YEAR [facility] [place] [facility] Sep 13, 2009 11:04 AM QUIT TOBACCO USE IN PAST YEAR [facility] Feb 05, 2009 08:29 AM V1-PT DECLINES REF TO TOBACCO CESS PRGM [facility] Feb 05, 2009 08:29 AM V1-PT DECLINES TOBACCO CESSATION MEDS [facility] Feb 05, 2009 08:29 AM V1-PT THINKING ABOUT QUIT TOBACCO USE [facility] Aug 22, 2008 09:04 AM QUIT TOBACCO USE IN PAST YEAR [facility] Mar 12, 2008 10:40 AM V1-PT DECLINES REF TO TOBACCO CESS PRGM [facility] Mar 12, 2008 10:40 AM V1-PT DECLINES TOBACCO CESSATION MEDS [facility] Mar 12, 2008 10:40 AM V1-PT NOT INTERESTED IN QUIT TOBACCO USE [facility] Mar 08, 2008 09:37 AM CURRENT SMOKER smokes one pack a day for about 10 years ago. [facility] Encounter Notes: All associated encounter notes This section contains the clinical notes associated to the Encounter. Date/Time Encounter Note(s) Provider Source Feb 02, 2024 09:52 AM LETTERS: LOCAL TITLE: PATIENT LETTER (B) STANDARD TITLE: LETTERS DATE OF NOTE: FEB 02, 2024@09:52 ENTRY DATE: FEB 02, 2024@09:52:06 AUTHOR: BEULAH LOPEZ EXP COSIGNER: URGENCY: STATUS: COMPLETED [facility] Toll Free Number ext [phone] [facility] scheduling can be reached at ext. [phone] [facility]- ext. [phone] [facility]- ext. [phone] [facility]- ext. [phone] FEB 02, 2024 REID QUEZADA [address] [place], [place] [address] Dear DAMIEN,REID Thank you for choosing the [facility] as your primary choice for health care. As a partner in your health care, we are contacting you in writing since we have been unsuccessful in our attempts to reach you to date. We want to assure you we are doing everything possible to schedule Veterans for their ID medical care appointments. Our records indicate you are due for an appointment in PAIN CLINIC. If you would like to be seen, please contact [facility] at ext. [phone] to schedule an appointment. 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 Sincerely, [facility] [address] [facility] [address] [place] [address] [place] [address] ext [phone] [facility] [address] [facility] [address] [place] [address] [place] [address] ext. [phone] [facility] [address] [facility] [address] [place] [address] [place] [address] ext. [phone] BEULAH LOPEZ [facility] Feb 02, 2024 09:51 AM ADMINISTRATIVE NOT E: LOCAL TITLE: ADMINISTRATIVE RECALL NOTE STANDARD TITLE: ADMINISTRATIVE NOTE DATE OF NOTE: FEB 02, 2024@09:51 ENTRY DATE: FEB 02, 2024@09:51:37 AUTHOR: BEULAH LOPEZ EXP COSIGNER: URGENCY: STATUS: COMPLETED ADMINISTRATIVE RECALL NOTE Has ADDENDA RTC orders: Unable to contact patient: Attempts to contact: 1st attempt: Left voicemail 2nd attempt: Letter mailedDisposition onJu 3rd attempt: 4th attempt: /divya/ BEULAH LOPEZ ADVANCED CST Signed: 02/02/2024 09:51 02/07/2024 ADDENDUM STATUS: COMPLETED 3RD ATTEMPT- LVM. /divya/ LORI QUEVEDO ADVANCED CST Signed: 02/07/2024 11:54 BEULAH LOPEZ [facility]
--- OUTSIDE RECORDS SUMMARY | 2024-07-05 03:38 | XMS_ITS | Encounter Summary ---
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 [place] [facility] [place] Organization [facility] [place] [facility] [place] Address [address] [place] [address] Care Team Providers Care Map And Chart Mounter Name Role Phone ROMANA CASTILLO Primary Care [...] Name Patient's Relationship to Policy Garcia [facility] (MEDICAID) MEDICAID [place] HUMAN [facility] May 14, 2009 [id number] SAMPLE,ROCCO MOORE PATIENT [facility]ICAID [place] [facility] May 14, 2009 [id number] SAMPLE,ROCCO MOORE PATIENT MEDICAID MEDICAID [facility] [place] Jul 26, 2018 MEDICAI D [id number] SAMPLE,ROCCO MOORE PATIENT MEDICARE (WNR) MEDICARE (M) PART A November 24, 2015 PART A [id number] SAMPLE,ROCCO MOORE PATIENT MEDICARE (WNR) MEDICARE (M) PART B November 24, 2015 PART B [id number] SAMPLE,ROCCO MOORE PATIENT Selected Encounter This section includes the information on record at [place] for the Encounter. Date/Time Encounter Type Encounter Description Reason Pro vider Source Feb 08, 2024 12:40 PM Outpatient Encounter ADMIN PAT ACTIVTIES (MASNONCT) [...] Name Feb 14, 2024 11:00 AM AMBULATORY - PSYCHIATRY [place] [facility] [place] [facility] Mar 06, 2024 09:00 AM AMBULATORY - MEDICINE [place] C [place]TR[place] [facility] Apr 03, 2024 11:30 AM AMBULATORY - MEDICINE [place] C [place] [facility] Apr 13, 2024 11:00 AM AMBULATORY PSYCHIATRY [place] [facility] [place] [facility] Apr 13, 2024 02:00 PM AMBULATORY - MEDICINE [place] C [place] [facility] Apr 13, 2024 03:00 PM AMBULATORY - MEDICINE [place] C [place] [facility] May 02, 2024 11:00 AM AMBULATORY - MEDICINE [place] C [place] [facility] May 15, 2024 11:30 AM AMBULATORY PSYCHIATRY [place] [facility] [place] [facility] May 25, 2024 11:30 AM AMBULATORY - MEDICINE [place] C [place] [facility] Jul 13, 2024 10:00 AM AMBULATORY - MEDICINE [facility] [place] [facility] Active, Pending, and Scheduled Orders [...] The data comes from all [facility]. Test Date/Time Test Type Test Details Facility Name Jan 17, 2024 12:00 AM Laboratory - Chemistry Order BASIC METABOLIC PANEL (non-fasting) BLOOD (SST-SERUM) [facility] Jan 17, 2024 12:00 AM Laboratory - Chemistry Order LIPID PANEL, NON FASTING BLOOD (SST-SERUM) [facility] Jan 17, 2024 12:00 AM Laboratory - Chemistry Order LIVER FUNCTION BLOOD (SST-SERUM) [facility] Jan 17, 2024 12:00 AM Laboratory - Chemistry Order TSH BLOOD (SST-SERUM) [facility] Jan 17, 2024 12:00 AM Laboratory - Chemistry Order MICROALBUMIN CREATININE RATIO PANEL URINE (RANDOM) [facility] Lab Results: +/- 30 days of the [...] Range Comment Mar 06, 2024 09:56 AM [facility] VITAMIN D (25-OH) Specimen Type: SERUM No comment entered. Ordering Provider: Sherrie CASTILLO Report Released Date/Time: Mar 06, 2024 09:36 AM Reporting Lab: [address] [address] Performing Lab: [address] [address] VITAMIN D (25-OH) 20 ng/mL 20-50 Mar 06, 2024 09:56 AM [facility] IRON & TIBC PANEL Specimen Type: SERUM No comment entered. Ordering Provider: Sherrie CASTILLO Report Released Date/Time: Mar 06, 2024 09:36 AM Reporting Lab: [address] [address] Performing Lab: [address] [place] [address] TIBC 364 ug/dL 204-475 IRON 36 ug/dL L 40-160 Transferrin Saturation 9.9 L 20.0-50.0 Mar 06, 2024 09:56 AM [facility] FERRITIN Specimen Type: SERUM No comment entered. Ordering Provider: Sherrie CASTILLO Report Released Date/Time: Mar 06, 2024 09:36 AM Reporting Lab: [address] [address] Performing Lab: [address] [address] FERRITIN 52 ng/mL 10-200 Mar 06, 2024 09:56 AM [facility] HEMOGLOBIN A1C PANEL Specimen Type: BLOOD Comment: [...] Mar 06, 2024 09:36 AM Reporting Lab: [address] [address] Performing Lab: [address] [address] HEMOGLOBIN A1C 5.4 4.0-5.6 Mar 06, 2024 09:56 AM [facility] MICROALBUMIN CREATININE RATIO PANEL Specimen Type: URINE No comment entered. Ordering Provider: Sherrie CASTILLO Report Released Date/Time: Mar 06, 2024 09:36 AM Reporting Lab: [address] [address] Performing Lab: [address] [address] MICROALBUMIN/C REATININE RATIO 251.1 mg/g H 0-29.9 MICROALBUMIN,Q UANTITATIVE 11.2 mg/dL RR UNAVAIL CREATININE URINE 44.60 mg/dL Mar 06, 2024 09:56 AM [facility] BASIC METABOLIC PANEL (non-fasting) Specimen Type: SERUM No comment entered. Ordering Provider: Sherrie CASTILLO Report Released Date/Time: Mar 06, 2024 09:36 AM Reporting Lab: [facility] [address] [facility] [address] Performing Lab: [facility] [address] [facility] [address] UREA NITROGEN 28 mg/dL H 7-25 GLUCOSE 130 mg/dL H 65-100 SODIUM 142 mmol/L 135-145 POTASSIUM 4.8 mmol/L 3.5-5.0 CHLORIDE 97 mmol/L L 100-110 CO2 33 meq/L H 20-30 CREATININE, Serum 1.00 mg/dL 0.50-1.40 eGFR(CKD-EPI 2020) 63 mL/min >60 Mar 06, 2024 09:56 AM [facility] CBC AND DIFF (AUTO) Specimen Type: BLOOD No comment entered. Ordering Provider: Sherrie CASTILLO Report Released Date/Time: Mar 06, 2024 09:36 AM Reporting Lab: [facility] [address] [facility] [address] Performing Lab: [address] [address] WBC 12.33 10*3/uL H 4.50-11.00 RBC 3.92 [...] took place. Date/Time Current Smoking Status Comment [facility] Mar 31, 2023 11:00 AM VA-TOBACCO FORMER USER [place] CNTR [place] [facility] Tobacco Use History This section includes a history of the smoking, or tobacco-related health factors, that were collected on or before the date of the Encounter. The data comes from the [place] facility where the Encounter took place. Date/Time Smoking Status/Tobac co Use Comment Facility Mar 31, 2023 11:00 AM VA-TOBACCO QUIT 1 TO < 5 YRS SC CNTRL [place] [facility] Mar 25, 2022 10:30 AM VA-TOBACCO NEVER USED SC CNTRL [place] [facility] Mar 19, 2021 02:00 PM VA-TOBACCO FORMER USER [place] CNTRL [place] [facility] Mar 19, 2021 02:00 PM VA-TOBACCO QUIT < 1 YEAR SC CNTRL [place] [facility] Sep 20, 2018 11:24 AM VA-TOBACCO USE DECLINED TO ANSWER SC CNTRL [place] [facility] Oct 21, 2017 08:13 AM QUIT TOBACCO USE IN PAST YEAR [place] CNTR [place] [facility] Dec 30, 2016 08:28 AM QUIT TOBACCO USE 1-7 YEARS AGO SC CNTR [place] [facility] Jun 04, 2016 08:43 AM QUIT TOBACCO USE 1-7 YEARS AGO SC [facility]TR [place] [facility] May 17, 2015 08:45 AM QUIT TOBACCO USE 1-7 YEARS AGO quit 2 years ago. [place] [facility] [place] [facility] Jun 07, 2014 09:25 AM QUIT TOBACCO USE 1-7 YEARS AGO SC CNTR [place] [facility] November 30, 2013 08:44 AM QUIT TOBACCO USE IN PAST YEAR SC CNTR [place] [facility] May 22, 2013 10:10 AM QUIT TOBACCO USE IN PAST YEAR [place] CNTR [place] [facility] December 01, 2012 01:54 PM QUIT TOBACCO USE IN PAST YEAR [facility] [place] [facility] Jun 07, 2012 08:16 AM V1-PT DECLINES TOBACCO CESSATION [facility] [place] [facility] Jun 07, 2012 08:16 AM V1-PT THINKING ABOUT QUIT TOBACCO USE [facility] [place] [facility] Jan 05, 2012 09:00 AM CURRENT SMOKER intermittenly [facility] [place] [facility] Jan 05, 2012 09:00 AM V1-PT DECLINES REF TO TOBACCO CESS [facility] Jan 05, 2012 09:00 AM V1-PT DECLINES TOBACCO CESSATION [facility] [place] [facility] Jan 05, 2012 09:00 AM V1-PT THINKING ABOUT QUIT [facility]ACCO [facility] [place] [facility] Feb 17, 2011 09:52 AM V1-PT DECLINES TOBACCO CESSATION [facility] [place] [facility] Feb 17, 2011 09:52 AM V1-PT THINKING ABOUT QUIT TOBACCO USE [place] CNTR [place] [facility] Aug 13, 2010 11:31 AM QUIT TOBACCO USE IN PAST [facility] [place] [facility] Feb 19, 2010 01:26 PM QUIT TOBACCO USE IN PAST YEAR [facility] [place] [facility] Sep 13, 2009 11:04 AM QUIT TOBACCO USE IN PAST YEAR [facility] Feb 05, 2009 08:29 AM V1-PT DECLINES REF TO TOBACCO CESS PRGM [facility] Feb 05, 2009 08:29 AM V1-PT DECLINES TOBACCO CESSATION MEDS [facility] Feb 05, 2009 08:29 AM V1-PT THINKING ABOUT QUIT TOBACCO USE [facility] Aug 22, 2008 09:04 AM QUIT TOBACCO USE IN PAST YEAR [facility] Mar 12, 2008 10:40 AM V1-PT DECLINES REF TO TOBACCO CESS PRGM [facility] Mar 12, 2008 10:40 AM V1-PT DECLINES TOBACCO CESSATION MEDS [facility] Mar 12, 2008 10:40 AM V1-PT NOT INTERESTED IN QUIT TOBACCO USE [facility] Mar 08, 2008 09:37 AM CURRENT SMOKER smokes one pack a day for about 10 years ago. [facility] Encounter Notes: All associated encounter notes This section contains the clinical notes associated to the Encounter. Date/Time Encounter Note(s) Provider Source Feb 08, 2024 12:40 PM ADMINISTRATIVE NOT E: LOCAL TITLE: CCC: SCHEDULING ADMINISTRATION STANDARD TITLE: ADMINISTRATIVE NOTE DATE OF NOTE: FEB 08, 2024@12:40:42 ENTRY DATE: FEB 08, 2024@12:40:43 AUTHOR: DIANA KONG COSIGNER: URGENCY: STATUS: COMPLETED CCC: SCHEDULING ADMINISTRATION Has ADDENDA Patient Demographics Patient Name: REID QUEZADA Patient Primary Phone: [phone] Patient Primary Address: [address] [place] [id number] Patient : 1960 Patient Age: 64 Current Location: [facility] Call Back Number: [phone] Caller/Recipient Relation to Patient: Caregiver Caller Name: [employer] Administrative Administrative Note Reason: Home Health / Intermediate Administrative Note Comments: [employer], calling with [employer], requests a call back REILLY in regard to vet leaving [facility] ER AMA with severe kidney failure and needs a follow up with her PCP urgently. /divya/ DIANA KONG ADVANCED DIRECTOR OF RESEARCH CENTER Signed: 02/08/2024 12:40 Receipt Acknowledged By: 02/08/2024 13:16 /divya/ AKOSUA GREEN, MSN, RN, CNL PRIMARY CARE TEAM NURSE 02/08/2024 13:08 /divya/ Fabiola Hooker RN Primary Care Staff Nurse 02/08/2024 ADDENDUM STATUS: COMPLETED See nurse triage note- Vet agreed to go back to ER . /divya/ Fabiola Hooker RN Primary Care Staff Nurse Signed: 02/08/2024 13:08 DIA[facility] KONG [facility]
--- OUTSIDE RECORDS SUMMARY | 2024-07-05 03:38 | XMS_ITS | Encounter Summary ---
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 Organization [place] Address [address] [place] [address] Care Team Providers Care Clay Pigeon Loader Name Role Phone ROMANA CASTILLO Primary Care [...] [facility] (MEDICAID) [facility]ICAID [facility] May 14, 2009 [id number] SAMPLE,ROCCO MOORE PATIENT [facility] MEDICAID [facility] May 14, 2009 [id number] SAMPLE,ROCCO MOORE PATIENT MEDICAID MEDICAID [facility] [place] Jul 26, 2018 MEDICAI D [id number] SAMPLE,ROCCO MOORE PATIENT MEDICARE (WNR) MEDICARE (M) PART A November 24, 2015 PART A [id number] SAMPLE,ROCCO MOORE PATIENT MEDICARE (WNR) MEDICARE (M) PART B November 24, 2015 PART B [id number] [phone] [id number] ROCCO QUEZADA PATIENT Selected Encounter This section includes the information on record at [place] for the Encounter. Date/Time Encounter Type Encounter Description Reason Pro vider Source Feb 03, 2024 04:41 PM Outpatient Encounter ENDOCRINOLOGY IHE Encounter Template [...] The data comes from all [place] treatment [facility]. Appointment Date/Time Appointment Type Appointme nt Facility Name Feb 14, 2024 11:00 AM AMBULATORY - PSYCHIATRY [place] [facility] [place] [facility] Mar 06, 2024 09:00 AM AMBULATORY - MEDICINE [facility] [place] [place] [facility] Apr 03, 2024 11:30 AM AMBULATORY - MEDICINE [place] [facility] [place] [facility] Apr 13, 2024 11:00 AM AMBULATORY PSYCHIATRY [place] [facility] [place] [facility] Apr 13, 2024 02:00 PM AMBULATORY - MEDICINE [place] [facility] [place] [facility] Apr 13, 2024 03:00 PM AMBULATORY - MEDICINE [place] C [facility] [place] [facility] May 02, 2024 11:00 AM AMBULATORY - MEDICINE [place] C [facility] [place] [facility] May 15, 2024 11:30 AM AMBULATORY - PSYCHIATRY [place] [facility] [place] [facility] May 25, 2024 11:30 AM AMBULATORY - MEDICINE [place] [facility] [place] [facility] Jul 13, 2024 10:00 AM AMBULATORY - MEDICINE [facility] [place] [facility] Active, Pending, and Scheduled Orders This section includes a listing of several types of active, pending, and scheduled orders, including clinic medications orders, diagnostic test orders, procedure orders and consult orders; where the start date of the order is 45 days before the date of the Encounter or 45 days after the date of theEncounter. The data comes from all [place] treatment [facility]. Test Date/Time Test Type Test Details Facility Name Jan 17, 2024 12:00 AM Laboratory - Chemistry Order BASIC METABOLIC PANEL (non-fasting) BLOOD (SST-SERUM) [facility] [place] [facility] Jan 17, 2024 12:00 AM Laboratory - Chemistry Order LIPID PANEL, NON FASTING BLOOD (SST-SERUM) [facility] [place] [facility] Jan 17, 2024 12:00 AM Laboratory - Chemistry Order LIVER FUNCTION BLOOD (SST-SERUM) [facility] Jan 17, 2024 12:00 AM Laboratory - Chemistry Order TSH BLOOD (SST-SERUM) [facility] Jan 17, 2024 12:00 AM Laboratory - Chemistry Order MICROALBUMIN CREATININE RATIO PANEL URINE (RANDOM) [facility] Social History: Smoking Status (Most current) [...] VA-TOBACCO QUIT 1 TO < 5 YRS [facility] Tobacco Use History This section includes a history of the smoking, or tobacco-related health factors, that were collected on or before the date of the Encounter. The data comes from the [place] facility where the Encounter took place. Date/Time Smoking Status/Tobac co Use Comment Facility Mar 31, 2023 11:00 AM VA-TOBACCO QUIT 1 TO < 5 YRS [place] [facility] [place] [facility] Mar 25, 2022 10:30 AM VA-TOBACCO NEVER USED [place] [facility] [place] [facility] Mar 19, 2021 02:00 PM VA-TOBACCO FORMER USER [facility] Mar 19, 2021 02:00 PM VA-TOBACCO QUIT < 1 YEAR [place] [facility] [place] [facility] Sep 20, 2018 11:24 AM VA-TOBACCO USE DECLINED TO [facility]SWER [facility] Oct 21, 2017 08:13 AM QUIT TOBACCO USE IN PAST YEAR [place] [facility] [place] [facility] Dec 30, 2016 08:28 AM QUIT TOBACCO USE 1-7 YEARS AGO [place] [facility] [place] [facility] Jun 04, 2016 08:43 AM QUIT TOBACCO USE 1-7 YEARS AGO [place] [facility] [place] [facility] May 17, 2015 08:45 AM QUIT TOBACCO USE 1-7 YEARS AGO quit 2 years ago. [place] [facility] [place] [facility] Jun 07, 2014 09:25 AM QUIT TOBACCO USE 1-7 YEARS AGO [place] [facility] [facility] November 30, 2013 08:44 AM QUIT TOBACCO USE IN PAST YEAR [place] [facility] [facility] May 22, 2013 10:10 AM QUIT TOBACCO USE IN PAST YEAR [place] [facility] [place] [facility] December 01, 2012 01:54 PM QUIT TOBACCO USE IN PAST YEAR [facility] [place] [facility] Jun 07, 2012 08:16 AM V1-PT DECLINES TOBACCO CESSATION MEDS [facility] [place] [facility] Jun 07, 2012 08:16 AM V1-PT THINKING ABOUT QUIT TOBACCO USE [facility] [place] [facility] Jan 05, 2012 09:00 AM CURRENT SMOKER intermittenly [facility] [place] [facility] Jan 05, 2012 09:00 AM V1-PT DECLINES REF TO TOBACCO CESS [facility] [place] [place] [facility] Jan 05, 2012 09:00 AM V1-PT DECLINES TOBACCO CESSATION MEDS [facility] [facility] Jan 05, 2012 09:00 AM V1-PT THINKING ABOUT QUIT TOBACCO USE [facility] [place] [facility] Feb 17, 2011 09:52 AM V1-PT DECLINES TOBACCO CESSATION MEDS [facility] [place] [facility] Feb 17, 2011 09:52 AM V1-PT THINKING ABOUT QUIT TOBACCO USE [facility] [place] [facility] Aug 13, 2010 11:31 AM QUIT TOBACCO USE IN PAST YEAR [facility] [place] [facility] Feb 19, 2010 01:26 PM QUIT TOBACCO USE IN PAST YEAR [facility] [place] [facility] Sep 13, 2009 11:04 AM QUIT TOBACCO USE IN PAST YEAR [facility] [place] [facility] Feb 05, 2009 08:29 AM V1-PT DECLINES REF TO TOBACCO CESS PRGM [facility] Feb 05, 2009 08:29 AM V1-PT DECLINES TOBACCO CESSATION MEDS [facility] Feb 05, 2009 08:29 AM V1-PT THINKING ABOUT QUIT TOBACCO USE [facility] Aug 22, 2008 09:04 AM QUIT TOBACCO USE IN PAST YEAR [facility] Mar 12, 2008 10:40 AM V1-PT DECLINES REF TO TOBACCO CESS PRGM [facility] Mar 12, 2008 10:40 AM V1-PT DECLINES TOBACCO CESSATION MEDS [facility] Mar 12, 2008 10:40 AM V1-PT NOT INTERESTED IN QUIT TOBACCO USE [facility] Mar 08, 2008 09:37 AM CURRENT SMOKER smokes one pack a day for about 10 years ago. [facility] Encounter Notes: All associated encounter notes This section contains the clinical notes associated to the Encounter. Date/Time Encounter Note(s) Provider Source Feb 03, 2024 04:45 PM CLERICAL NOTE: LOCAL TITLE: APPOINTMENT NO SHOW STANDARD TITLE: CLERICAL NOTE DATE OF NOTE: FEB 03, 2024@16:45 ENTRY DATE: FEB 03, 2024@16:45:30 AUTHOR: GEORGE FLORES SA COSIGNER: URGENCY: STATUS: COMPLETED Patient Name: REID QUEZADA Patient SSN: [id number] Date and time of Appointment No show : 02/03/24 16:41 PATIENT PHONE - PHONE NUMBER [[email or web address]] - Patient's medical record was reviewed. Follow-up actions were determined and initiated: Please check/complete as applies: [X]Telephoned Directly [X]Re-scheduled for next available appt [ ]Sent a N0-show letter ( must call for appointment) [ ]Other (Emergent/Overbook, etc.): Additional Comments: Called and spoke to the to RS No show Endocrine f2f appointment. The is scheduled for 04/03/2024 at 11:30am. [place] aware and agreeable. Future Clinic Visits 02/14/2024 11:00 CWM/NO/VVC/KELSIE/SHRUTHI 04/03/2024 11:30 NHM/ENDOCRINE 08/24/2024 11:00 CWM/NO/PACT 4 /es/ GEORGE FLORES Signed: 02/03/2024 16:46 GEORGE FLORES [facility]
--- OUTSIDE RECORDS SUMMARY | 2024-07-05 03:38 | XMS_ITS | Encounter Summary ---
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 Organization [place] Address [address] [place] [address] Care Team Providers Care Nurse Midwife/Clinical Instructor Name Role Phone ROMANA CASTILLO Primary Care [...] Policy Garcia [facility] (MEDICAID) MEDICAID [facility] HUMAN [facility] May 14, 2009 [id number] SAMPLE,ROCCO MOORE PATIENT [facility] MEDICAID [facility] May 14, 2009 [id number] SAMPLE,ROCCO MOORE PATIENT MEDICAID MEDICAID [facility] [place] Jul 26, 2018 MEDICAI D [id number] SAMPLE,ROCCO MOORE PATIENT MEDICARE (WNR) MEDICARE (M) PART A November 24, 2015 PART A [id number] SAMPLE,ROCCO MOORE PATIENT MEDICARE (WNR) MEDICARE (M) PART B November 24, 2015 PART B [id number] SAMPLE,ROCCO MOORE PATIENT Selected Encounter This section includes the information on record at [facility] for the Encounter. Date/Time Encounter Type Encounter Description Reason Pro vider Source IHE Encounter Template Text not used by VA
--- OUTSIDE RECORDS SUMMARY | 2024-07-05 03:39 | XMS_ITS | Encounter Summary ---
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 Address [address] [place] [address] Care Team Providers Care Independent Marketing Consultant Name Role Phone ROMANA CASTILLO Primary Care [...] [facility] (MEDICAID) [facility]ID [facility] May 14, 2009 [id number] SAMPLE,ROCCO MOORE PATIENT [facility] MEDICAID [facility] May 14, 2009 [id number] SAMPLE,ROCCO MOORE PATIENT MEDICAID MEDICAID [facility] [place] Jul 26, 2018 MEDICAI D [id number] SAMPLE,ROCCO MOORE PATIENT MEDICARE (WNR) MEDICARE (M) PART A November 24, 2015 PART A [id number] [phone] [id number] SAMPLE,ROCCO MOORE PATIENT MEDICARE (WNR) MEDICARE (M) PART B November 24, 2015 PART B [id number] ROCCO QUEZADA PATIENT Selected Encounter This section includes the information on record at [place] for the Encounter. Date/Time Encounter Type Encounter Description Reason Pro vider Source Feb 09, 2024 09:56 AM Outpatient Encounter PAIN CLINIC IHE Encounter [...] 20 appointments. The data comes from all [facility]. Appointment Date/Time Appointment Type Appointme nt Facility Name Feb 14, 2024 11:00 AM AMBULATORY PSYCHIATRY [place] [facility] [place] [facility] Mar 06, 2024 09:00 AM AMBULATORY - MEDICINE [facility] [place] [place] [facility] Apr 03, 2024 11:30 AM AMBULATORY - MEDICINE [place] C [facility] [facility] Apr 13, 2024 11:00 AM AMBULATORY PSYCHIATRY [place] [facility] [place] [facility] Apr 13, 2024 02:00 PM AMBULATORY - MEDICINE AL C [facility] [place] [facility] Apr 13, 2024 03:00 PM AMBULATORY MEDICINE AL C [facility] [place] [facility] May 02, 2024 11:00 AM AMBULATORY - MEDICINE AL C [facility] [place] [facility] May 15, 2024 11:30 AM AMBULATORY PSYCHIATRY [place] [facility] [place] [facility] May 25, 2024 11:30 AM AMBULATORY - MEDICINE AL C [facility] [place] [facility] Jul 13, 2024 10:00 AM AMBULATORY - MEDICINE [facility] [place] [facility] Active, Pending, and Scheduled Orders This section includes a listing of several types of active, pending, and scheduled orders, including clinic medications orders, diagnostic test orders, procedure orders and consult orders; where the start date of the order is 45 days before the date of the Encounter or 45 days after the date of theEncounter. The data comes from all [facility]. Test Date/Time Test Type Test Details Facility Name Jan 17, 2024 12:00 AM Laboratory - Chemistry Order BASIC METABOLIC PANEL (non-fasting) BLOOD (SST-SERUM) [facility] Jan 17, 2024 12:00 AM Laboratory - Chemistry Order LIPID PANEL, NON FASTING BLOOD (SST-SERUM) [facility] Jan 17, 2024 12:00 AM Laboratory - Chemistry Order LIVER FUNCTION BLOOD (SST-SERUM) [facility] Jan 17, 2024 12:00 AM Laboratory - Chemistry Order TSH BLOOD (SST-SERUM) [facility] Jan 17, 2024 12:00 AM Laboratory - Chemistry Order MICROALBUMIN CREATININE RATIO PANEL URINE (RANDOM) [facility] Lab Results: +/- 30 days of [...] Range Comment Mar 06, 2024 09:56 AM [facility] IRON & TIBC PANEL Specimen Type: SERUM No comment entered. Ordering Provider: Sherrie CASTILLO Report Released Date/Time: Mar 06, 2024 09:36 AM Reporting Lab: [address] [address] Performing Lab: [address] [address] TIBC 364 ug/dL 204-475 IRON 36 ug/dL L 40-160 Transferrin Saturation 9.9 L 20.0-50.0 Mar 06, 2024 09:56 AM [facility] VITAMIN D (25-OH) Specimen Type: SERUM No comment entered. Ordering Provider: Sherrie CASTILLO Report Released Date/Time: Mar 06, 2024 09:36 AM Reporting Lab: [address] [address] Performing Lab: [place] [address] [facility] [address] VITAMIN D (25-OH) 20 ng/mL 20-50 Mar 06, 2024 09:56 AM [facility] FERRITIN Specimen Type: SERUM No comment entered. Ordering Provider: Sherrie CASTILLO Report Released Date/Time: Mar 06, 2024 09:36 AM Reporting Lab: [address] [address] Performing Lab: [address] [address] FERRITIN 52 ng/mL 10-200 Mar 06, 2024 09:56 AM [facility] HEMOGLOBIN A1C PANEL Specimen Type: BLOOD [...] Mar 06, 2024 09:36 AM Reporting Lab: [address] [address] Performing Lab: [address] [address] HEMOGLOBIN A1C 5.4 4.0-5.6 Mar 06, 2024 09:56 AM [facility] BASIC METABOLIC PANEL (non-fasting) Specimen Type: SERUM No comment entered. Ordering Provider: Sherrie CASTILLO Report Released Date/Time: Mar 06, 2024 09:36 AM Reporting Lab: [address] [address] Performing Lab: [address] [address] UREA NITROGEN 28 mg/dL H 7-25 GLUCOSE 130 mg/dL H 65-100 SODIUM 142 mmol/L 135-145 POTASSIUM 4.8 mmol/L 3.5-5.0 CHLORIDE 97 mmol/L L 100-110 CO2 33 meq/L H 20-30 CREATININE, Serum 1.00 mg/dL 0.50-1.40 eGFR(CKD-EPI 2020) 63 mL/min >60 Mar 06, 2024 09:56 AM [facility] MICROALBUMIN CREATININE RATIO PANEL Specimen Type: URINE No comment entered. Ordering Provider: Sherrie CASTILLO Report Released Date/Time: Mar 06, 2024 09:36 AM Reporting Lab: [address] [address] Performing Lab: [address] [address] MICROALBUMIN/C REATININE RATIO 251.1 mg/g H 0-29.9 MICROALBUMIN,Q UANTITATIVE 11.2 mg/dL RR UNAVAIL CREATININE URINE 44.60 mg/dL Mar 06, 2024 09:56 AM [facility] CBC AND DIFF (AUTO) Specimen Type: BLOOD No comment entered. Ordering Provider: Sherrie CASTILLO Report Released Date/Time: Mar 06, 2024 09:36 AM Reporting Lab: [facility] [address] [facility] [address] Performing Lab: [address] [address] WBC 12.33 10*3/uL H 4.50-11.00 RBC 3.92 [...] took place. Date/Time Current Smoking Status Comment [facility] Mar 31, 2023 11:00 AM VA-TOBACCO [facility] Tobacco Use History This section includes a history of the smoking, or tobacco-related health factors, that were collected on or before the date of the Encounter. The data comes from the [place] facility where the Encounter took place. Date/Time Smoking Status/Tobac co Use Comment Facility Mar 31, 2023 11:00 AM VA-TOBACCO QUIT 1 TO < 5 YRS [place] [facility] [place] [facility] Mar 25, 2022 10:30 AM VA-TOBACCO NEVER USED [place] [facility] [place] [facility] Mar 19, 2021 02:00 PM VA-TOBACCO FORMER USER [place] [facility] [place] [facility] Mar 19, 2021 02:00 PM VA-TOBACCO QUIT < 1 YEAR [facility] [facility] Sep 20, 2018 11:24 AM VA-TOBACCO USE DECLINED TO ANSWER [place] [facility] [place] [facility] Oct 21, 2017 08:13 AM QUIT TOBACCO USE IN PAST YEAR [place] [facility] [facility] Dec 30, 2016 08:28 AM QUIT TOBACCO USE 1-7 YEARS AGO [place] [facility] [place] [facility] Jun 04, 2016 08:43 AM QUIT TOBACCO USE 1-7 YEARS AGO [place] [facility] [place] [facility] May 17, 2015 08:45 AM QUIT TOBACCO USE 1-7 YEARS AGO quit 2 years ago. [place] [facility] [place] [facility] Jun 07, 2014 09:25 AM QUIT TOBACCO USE 1-7 YEARS AGO [place] [facility] [place] [facility] November 30, 2013 08:44 AM QUIT TOBACCO USE IN PAST YEAR [place] [facility] [place] [facility] May 22, 2013 10:10 AM QUIT TOBACCO USE IN PAST YEAR [place] [facility] [place] [facility] December 01, 2012 01:54 PM QUIT TOBACCO USE [facility]ST [facility] [place] [facility] Jun 07, 2012 08:16 AM V1-PT DECLINES TOBACCO CESSATION [facility]S [facility] [place] [facility] Jun 07, 2012 08:16 AM V1-PT THINKING ABOUT QUIT TOBACCO [facility] [place] [facility] Jan 05, 2012 09:00 AM CURRENT SMOKER intermittenly [facility] [place] [facility] Jan 05, 2012 09:00 AM V1-PT DECLINES REF TO TOBACCO CESS [facility] [place] [facility] Jan 05, 2012 09:00 AM V1-PT DECLINES TOBACCO CESSATION [facility] [place] [facility] Jan 05, 2012 09:00 AM V1-PT THINKING ABOUT QUIT TOBACCO USE [place] [facility] [place] [facility] Feb 17, 2011 09:52 AM V1-PT DECLINES TOBACCO CESSATION [facility] [place] [facility] Feb 17, 2011 09:52 AM V1-PT THINKING ABOUT QUIT TOBACCO USE [facility] [place] [facility] Aug 13, 2010 11:31 AM QUIT TOBACCO USE IN PAST YEAR [facility] [facility] Feb 19, 2010 01:26 PM QUIT TOBACCO USE IN [facility]ST [facility]AR [facility] [place] [facility] Sep 13, 2009 11:04 AM QUIT TOBACCO USE IN PAST YEAR [facility] Feb 05, 2009 08:29 AM V1-PT DECLINES REF TO TOBACCO CESS PRGM [facility] Feb 05, 2009 08:29 AM V1-PT DECLINES TOBACCO CESSATION MEDS [facility] Feb 05, 2009 08:29 AM V1-PT THINKING ABOUT QUIT TOBACCO USE [facility] Aug 22, 2008 09:04 AM QUIT TOBACCO USE IN PAST YEAR [facility] Mar 12, 2008 10:40 AM V1-PT DECLINES REF TO TOBACCO CESS PRGM [facility] Mar 12, 2008 10:40 AM V1-PT DECLINES TOBACCO CESSATION MEDS [facility] Mar 12, 2008 10:40 AM V1-PT NOT INTERESTED IN QUIT TOBACCO USE [facility] Mar 08, 2008 09:37 AM CURRENT SMOKER smokes one pack a day for about 10 years ago. [facility] Encounter Notes: All associated encounter notes This section contains the clinical notes associated to the Encounter. Date/Time Encounter Note(s) Provider Source Feb 09, 2024 09:56 AM TELEPHONE ENCOUNTER NOTE: LOCAL TITLE: TELEPHONE NOTE/SPECIALTY CLINIC STANDARD TITLE: TELEPHONE ENCOUNTER NOTE DATE OF NOTE: FEB 09, 2024@09:56 ENTRY DATE: FEB 09, 2024@09:56:38 AUTHOR: LORI QUEVEDO COSIGNER: URGENCY: STATUS: COMPLETED Morgue Keeper spoke with vet to schedule follow up appt. Appt scheduled. Vet requested cb from provider as soon as possible. Phone number on file confirmed. /divya/ LORI QUEVEDO ADVANCED DENTAL RESIDENT Signed: 02/09/2024 09:58 Receipt Acknowledged By: 02/09/2024 12:09 /es/ Gal Solorio MD STAFF PHYSICIAN 02/09/2024 12:19 /es/ ERIC DOUGLAS CLINICAL PHARMACIST PRACTITIONER, PAIN 02/09/2024 12:19 /divya/ ERIC DOUGLAS CLINICAL PHARMACIST PRACTITIONER, PAIN for JESSIKA CORONEL 02/09/2024 12:35 /es/ URBANO FOSTER, PHARM.D CLINICAL PHARMACIST PRACTITIONER LORI QUEVEDO CN[facility]L [facility]SN [facility]
--- OUTSIDE RECORDS SUMMARY | 2024-07-05 03:39 | XMS_ITS ---
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 STAND ESTEFANY Jul 26, 2018 MEDICAI D [id number] SAMPLE,ROCCO MOORE PATIENT MEDICARE (WNR) MEDICARE (M) PART A November 24, 2015 PART A [id number] SAMPLE,ROCCO MOORE PATIENT MEDICARE (WNR) MEDICARE (M) PART B November 24, 2015 PART B [id number] [phone] RCOCO QUEZADA PATIENT Selected Encounter This section includes the information on record at [place] for the Encounter. Date/Time Encounter Type Encounter Description Reason Pro vider Source Feb 11, 2024 08:56 AM Outpatient Encounter COMMUNITY CARE CONSULT IHE [...] Feb 14, 2024 11:00 AM AMBULATORY PSYCHIATRY [place] [facility] [place] [facility] Mar 06, 2024 09:00 AM AM[facility]ULATORY MEDICINE [facility] [place] [facility] Apr 03, 2024 11:30 AM AMBULATORY - MEDICINE PR C [facility] [place] [facility] Apr 13, 2024 11:00 AM AMBULATORY PSYCHIATRY [facility] [place] [facility] Apr 13, 2024 02:00 PM AMBULATORY - [facility] [place] [place] [facility] Apr 13, 2024 03:00 PM AMBULATORY MEDICINE PR C [facility] [place] [facility] May 02, 2024 11:00 AM AMBULATORY - MEDICINE PR C [facility]TRL [place] [facility] May 15, 2024 11:30 AM AMBULATORY PSYCHIATRY [place] [facility] [place] [facility] May 25, 2024 11:30 AM AMBULATORY - MEDICINE PR C [facility] [place] [facility] Jul 13, 2024 10:00 AM [facility]ORY [facility] [place] [facility] Active, Pending, and Scheduled Orders This section includes a listing of several types of active, pending, and scheduled orders, including clinic medications orders, diagnostic test orders, procedure orders and consult orders; where the start date of the order is 45 days before the date of the Encounter or 45 days after the date of theEncounter. The data comes from all [facility]. Test Date/Time Test Type Test Details Facility Name Jan 17, 2024 12:00 AM Laboratory - Chemistry Order BASIC METABOLIC PANEL (non-fasting) BLOOD (SST-SERUM) [facility] Jan 17, 2024 12:00 AM Laboratory - Chemistry Order LIPID PANEL, NON FASTING BLOOD (SST-SERUM) [facility] Jan 17, 2024 12:00 AM Laboratory - Chemistry Order LIVER FUNCTION BLOOD (SST-SERUM) [facility] Jan 17, 2024 12:00 AM Laboratory - Chemistry Order TSH BLOOD (SST-SERUM) [facility] Jan 17, 2024 12:00 AM Laboratory - Chemistry Order MICROALBUMIN CREATININE RATIO PANEL URINE (RANDOM) [facility] Lab Results: +/- 30 days of [...] Range Comment Mar 06, 2024 09:56 AM [facility] VITAMIN D (25-OH) Specimen Type: SERUM No comment entered. Ordering Provider: Sherrie CASTILLO Report Released Date/Time: Mar 06, 2024 09:36 AM Reporting Lab: [address] [address] Performing Lab: [address] [address] VITAMIN D (25-OH) 20 ng/mL 20-50 Mar 06, 2024 09:56 AM [facility] IRON & TIBC PANEL Specimen Type: SERUM No comment entered. Ordering Provider: Sherrie CASTILLO Report Released Date/Time: Mar 06, 2024 09:36 AM Reporting Lab: [address] [address] Performing Lab: [address] [address] TIBC 364 ug/dL 204-475 IRON 36 ug/dL L 40-160 Transferrin Saturation 9.9 L 20.0-50.0 Mar 06, 2024 09:56 AM [facility] FERRITIN Specimen Type: SERUM No comment entered. Ordering Provider: Sherrie CASTILLO Report Released Date/Time: Mar 06, 2024 09:36 AM Reporting Lab: [address] [address] Performing Lab: [address] [address] FERRITIN 52 ng/mL 10-200 Mar 06, 2024 09:56 AM [facility] HEMOGLOBIN A1C PANEL Specimen Type: BLOOD [...] Mar 06, 2024 09:36 AM Reporting Lab: [address] [address] Performing Lab: [address] [address] HEMOGLOBIN A1C 5.4 4.0-5.6 Mar 06, 2024 09:56 AM [facility] MICROALBUMIN CREATININE RATIO PANEL Specimen Type: URINE No comment entered. Ordering Provider: Sherrie CASTILLO Report Released Date/Time: Mar 06, 2024 09:36 AM Reporting Lab: [address] [address] Performing Lab: [address] [address] MICROALBUMIN/C REATININE RATIO 251.1 mg/g H 0-29.9 MICROALBUMIN,Q UANTITATIVE 11.2 mg/dL RR UNAVAIL CREATININE URINE 44.60 mg/dL Mar 06, 2024 09:56 AM [facility] BASIC METABOLIC PANEL (non-fasting) Specimen Type: SERUM No comment entered. Ordering Provider: Sherrie CASTILLO Report Released Date/Time: Mar 06, 2024 09:36 AM Reporting Lab: [address] [address] Performing Lab: [address] [address] UREA NITROGEN 28 mg/dL H 7-25 GLUCOSE 130 mg/dL H 65-100 SODIUM 142 mmol/L 135-145 POTASSIUM 4.8 mmol/L 3.5-5.0 CHLORIDE 97 mmol/L L 100-110 CO2 33 meq/L H 20-30 CREATININE, Serum 1.00 mg/dL 0.50-1.40 eGFR(CKD-EPI 2020) 63 mL/min >60 Mar 06, 2024 09:56 AM [facility] CBC AND DIFF (AUTO) Specimen Type: BLOOD No comment entered. Ordering Provider: Sherrie CASTILLO Report Released Date/Time: Mar 06, 2024 09:36 AM Reporting Lab: [facility] [address] [facility] [address] Performing Lab: [address] [address] WBC 12.33 10*3/uL H 4.50-11.00 RBC 3.92 [...] took place. Date/Time Current Smoking Status Comment [facility] Mar 31, 2023 11:00 AM [facility]ACCO [facility] Tobacco Use History This section includes a history of the smoking, or tobacco-related health factors, that were collected on or before the date of the Encounter. The data comes from the [place] facility where the Encounter took place. Date/Time Smoking Status/Tobac co Use Comment Facility Mar 31, 2023 11:00 AM VA-TOBACCO QUIT 1 TO < 5 YRS [facility] [place] [facility] Mar 25, 2022 10:30 AM VA-TOBACCO NEVER USED [facility] Mar 19, 2021 02:00 PM VA-TOBACCO FORMER USER PR CNTR [facility] [place] [facility] Mar 19, 2021 02:00 PM VA-TOBACCO QUIT < 1 YEAR [facility] [place] [facility] Sep 20, 2018 11:24 AM VA-TOBACCO USE DECLINED TO [facility] Oct 21, 2017 08:13 AM QUIT TOBACCO USE IN PAST YEAR [place] [facility] [place] [facility] Dec 30, 2016 08:28 AM QUIT TOBACCO USE 1-7 YEARS AGO [facility] [place] [facility] Jun 04, 2016 08:43 AM QUIT TOBACCO USE 1-7 YEARS AGO [facility] [place] [facility] May 17, 2015 08:45 AM QUIT TOBACCO USE 1-7 YEARS AGO quit 2 years ago. [facility] [place] [facility] Jun 07, 2014 09:25 AM QUIT TOBACCO USE 1-7 YEARS AGO [facility] [place] [facility] November 30, 2013 08:44 AM QUIT TOBACCO USE IN PAST YEAR PR [facility]TR [place] [facility] May 22, 2013 10:10 AM QUIT TOBACCO USE IN PAST YEAR PR [facility] [place] [facility] December 01, 2012 01:54 PM QUIT TOBACCO USE IN PAST YEAR [facility] [place] [facility] Jun 07, 2012 08:16 AM V1-PT DECLINES TOBACCO CESSATION MEDS [facility] [place] [facility] Jun 07, 2012 08:16 AM V1-PT THINKING ABOUT QUIT TOBACCO USE [facility] [place] [facility] Jan 05, 2012 09:00 AM CURRENT SMOKER intermittenly [facility] [facility] Jan 05, 2012 09:00 AM V1-PT DECLINES REF TO TOBACCO CESS PRGM [facility] [place] [facility] Jan 05, 2012 09:00 AM V1-PT DECLINES TOBACCO CESSATION MEDS [facility] [place] [facility] Jan 05, 2012 09:00 AM V1-PT THINKING ABOUT QUIT TOBACCO USE PR [facility]TR [place] [facility] Feb 17, 2011 09:52 AM V1-PT DECLINES TOBACCO CESSATION MEDS [facility] [place] [facility] Feb 17, 2011 09:52 AM V1-PT THINKING ABOUT QUIT TOBACCO USE PR CNTR [place] [facility] Aug 13, 2010 11:31 AM QUIT TOBACCO USE IN PAST YEAR [facility] [place] [facility] Feb 19, 2010 01:26 PM QUIT TOBACCO USE IN PAST YEAR [facility] [place] [facility] Sep 13, 2009 11:04 AM QUIT TOBACCO USE [facility]ST [facility] Feb 05, 2009 08:29 AM V1-PT DECLINES REF TO TOBACCO CESS [facility] Feb 05, 2009 08:29 AM V1-PT DECLINES TOBACCO CESSATION MEDS [facility] LUZ MARIAEvi [facility] Feb 05, 2009 08:29 AM V1-PT THINKING ABOUT QUIT TOBACCO USE [facility] Aug 22, 2008 09:04 AM QUIT TOBACCO USE IN PAST YEAR [facility] Mar 12, 2008 10:40 AM V1-PT DECLINES REF TO TOBACCO CESS [facility] Mar 12, 2008 10:40 AM V1-PT DECLINES TOBACCO CESSATION MEDS [facility] Mar 12, 2008 10:40 AM V1-PT NOT INTERESTED IN QUIT TOBACCO USE [facility] Mar 08, 2008 09:37 AM CURRENT SMOKER smokes one pack a day for about 10 years ago. [facility] Encounter Notes: All associated encounter notes This section contains the clinical notes associated to the Encounter. Date/Time Encounter Note(s) Provider Source Feb 11, 2024 08:56 AM NONVA NOTE: LOCAL TITLE: [facility] C[facility] COORD PLAN STANDARD TITLE: NONVA NOTE DATE OF NOTE: FEB 11, 2024@08:56 ENTRY DATE: FEB 11, 2024@08:56:24 AUTHOR: MADELINE MUNOZ COSIGNER: URGENCY: STATUS: COMPLETED Emergency Notification Intake Date Presenting to the Facility: Jan Method of Contact: Notified from [facility] worklist Notification ID: [id number] [facility] Referral #: [facility], [facility] Hospital Name: Hospital: [facility] Address: City: [place] State: [place] Zip Code: Phone : [facility], [facility] Facility Point of Contact: Name: Melanie Phone: Chief complaint: E87.5, J96.21 Primary Diagnosis: Disposition Admitted Route of Admission: ER Date of Admission: Jan Admitting Diagnosis: E87.5, J96.21 [facility] Provider: Donovan Level of Care: izzy/ MADELINE MOLINA Signed: 02/11/2024 08:57 Receipt Acknowledged By: 02/11/2024 14:59 /es/ ROMANA CASTILLO MD PHYSICIAN 02/11/2024 09:21 /es/ OLGA GREEN, MSN, RN, CNL PRIMARY CARE TEAM NURSE 02/11/2024 09:22 /es/ OLGA GREEN, MSN, RN, CNL PRIMARY CARE TEAM NURSE for JOHN ARTEAGA SKIPPERSMADELINE CRABTREE
--- OUTSIDE RECORDS SUMMARY | 2024-07-05 03:39 | XMS_ITS | Encounter Summary ---
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 Tender Name Role Phone ROMANA CASTILLO Primary [...] Garcia's Name Patient's Relationship to Policy Garcia [facility] (MEDICAID) [facility] May 14, 2009 [id number] SAMPLE,ROCCO MOORE PATIENT [facility] MEDICAID [facility] May 14, 2009 [id number] SAMPLE,ROCCO MOORE PATIENT MEDICAID MEDICAID [facility] STAND ESTEFANY Jul 26, 2018 MEDICAI D [id number] SAMPLE,ROCCO MOORE PATIENT MEDICARE (WNR) MEDICARE (M) PART A November 24, 2015 PART A [id number] SAMPLE,ROCCO MOORE PATIENT MEDICARE (WNR) MEDICARE (M) PART B November 24, 2015 PART B [id number] ROCCO QUEZADA PATIENT Selected Encounter This section includes the information on record at [place] for the Encounter. Date/Time Encounter Type Encounter Description Reason Provider Source Feb 09, 2024 12:09 PM Outpatient Encounter TELEPHONE PRIMARY CARE ICD-10-CM E87.5 Hyperkalemia RONAN MADSEN Sherrie Giancarlo E Encounter Template Text not used by [place] Assessments - Encounter Diagnoses This section includes the primary and secondary diagnoses documented for the Encounter. Date/Time Primary/Secondary Diagnosis Diagnosis Name Provider Source Feb 09, 2024 12:09 PM PRIMARY Hyperkalemia WENDY MADSEN [place] [facility] [place] [facility] Plan of Treatment: Future Appointments (+ 6 months) and Future Tests (+/- 45 days) The Plan of Treatment section includes future care activities for the patient from all [place] treatmentfacilities. This section includes future appointments and future orders which are active, pending or scheduled. Future Appointments This section includes appointments that were scheduled to occur 6 months from the date of the Encounter, up to a maximum of 20 appointments. The data comes from all [place] treatment facilities. Appointment Date/Time Appointment Type Appointme nt Facility Name Feb 14, 2024 11:00 AM AMBULATORY - [place]CHIATRY [place] [facility] [place] [facility] Mar 06, 2024 09:00 AM AMBULATORY - MEDICINE [place] [facility] [place] [facility] Apr 03, 2024 11:30 AM AMBULATORY - MEDICINE [place] [facility] [place] [facility] Apr 13, 2024 11:00 AM AMBULATORY - PS[place]CHIATRY [place] [facility] [place] [facility] Apr 13, 2024 02:00 PM AMBULATORY - MEDICINE [place] [facility] [place] [facility] Apr 13, 2024 03:00 PM AMBULATORY - MEDICINE [place] [facility] [place] [facility] May 02, 2024 11:00 AM AMBULATORY - MEDICINE [place] [facility] [place] [facility] May 15, 2024 11:30 AM AMBULATORY - PS[place]CHIATRY [place] [facility] [place] [facility] May 25, 2024 11:30 AM AMBULATORY - MEDICINE [place] [facility] [place] [facility] Jul 13, 2024 10:00 AM AMBULATORY - MEDICINE [facility] [place] [facility] Active, Pending, and Scheduled Orders This section includes a listing of several types of active, pending, and scheduled orders, including clinic medications orders, diagnostic test orders, procedure orders and consult orders; where the start date of the order is 45 days before the date of the Encounter or 45 days after the date of theEncounter. The data comes from all [place] treatment facilities. Test Date/Time Test Type Test Details Facility Name Jan 17, 2024 12:00 AM Laboratory - Chemistry Order BASIC METABOLIC PANEL (non-fasting) BLOOD (SST-SERUM) [facility] Jan 17, 2024 12:00 AM Laboratory - Chemistry Order LIPID PANEL, NON FASTING BLOOD (SST-SERUM) [facility] Jan 17, 2024 12:00 AM Laboratory - Chemistry Order LIVER FUNCTION BLOOD (SST-SERUM) [facility] Jan 17, 2024 12:00 AM Laboratory - Chemistry Order TSH BLOOD (SST-SERUM) [facility] Jan 17, 2024 12:00 AM Laboratory - Chemistry Order MICROALBUMIN CREATININE RATIO PANEL URINE (RANDOM) [facility] Lab Results: +/- 30 days of the encounter This section includes the Chemistry and Hematology Lab Results on record with [place] for the patient. Radiology Reports and Pathology Reports are provided separately, in subsequent sections. Lab Results This section contains the Chemistry/Hematology Results that were resulted 30 days before or 30 daysafter the date of the Encounter. Date/Time Source Result Type Result - Unit Interpretation Reference Range Comment Mar 06, 2024 09:56 AM [facility] IRON & TIBC PANEL Specimen Type: SERUM No comment entered. Ordering Provider: Sherrie CASTILLO Report Released Date/Time: Mar 06, 2024 09:36 AM Reporting Lab: [address] [address] Performing Lab: [address] [address] TIBC 364 ug/dL 204-475 IRON 36 ug/dL L 40-160 Transferrin Saturation 9.9 L 20.0-50.0 Mar 06, 2024 09:56 AM [facility] VITAMIN D (25-OH) Specimen Type: SERUM No comment entered. Ordering Provider: Sherrie CASTILLO Report Released Date/Time: Mar 06, 2024 09:36 AM Reporting Lab: [facility] [place] [facility] [address] [facility] [address] Performing Lab: [facility] [address] [address] VITAMIN D (25-OH) 20 ng/mL 20-50 Mar 06, 2024 09:56 AM [facility] FERRITIN Specimen Type: SERUM No comment entered. Ordering Provider: Sherrie CASTILLO Report Released Date/Time: Mar 06, 2024 09:36 AM Reporting Lab: [facility] [place] [address] [address] Performing Lab: [facility] [address] [address] FERRITIN 52 ng/mL 10-200 Mar 06, 2024 09:56 AM [facility] HEMOGLOBIN A1C PANEL Specimen Type: BLOOD Comment: [...] Mar 06, 2024 09:36 AM Reporting Lab: [facility] [place] [address] [address] Performing Lab: [facility] [address] [address] HEMOGLOBIN A1C 5.4 4.0-5.6 Mar 06, 2024 09:56 AM [facility] MICROALBUMIN CREATININE RATIO PANEL Specimen Type: URINE No comment entered. Ordering Provider: Sherrie CASTILLO Report Released Date/Time: Mar 06, 2024 09:36 AM Reporting Lab: [facility] [address] [facility] [address] Performing Lab: [facility] [address] [facility] [address] MICROALBUMIN/C REATININE RATIO 251.1 mg/g H 0-29.9 MICROALBUMIN,Q UANTITATIVE 11.2 mg/dL RR UNAVAIL CREATININE URINE 44.60 mg/dL Mar 06, 2024 09:56 AM [facility] BASIC METABOLIC PANEL (non-fasting) Specimen Type: SERUM No comment entered. Ordering Provider: Sherrie CASTILLO Report Released Date/Time: Mar 06, 2024 09:36 AM Reporting Lab: [address] [address] Performing Lab: [address] [address] UREA NITROGEN 28 mg/dL H 7-25 GLUCOSE 130 mg/dL H 65-100 SODIUM 142 mmol/L 135-145 POTASSIUM 4.8 mmol/L 3.5-5.0 CHLORIDE 97 mmol/L L 100-110 CO2 33 meq/L H 20-30 CREATININE, Serum 1.00 mg/dL 0.50-1.40 eGFR(CKD-EPI 2020) 63 mL/min >60 Mar 06, 2024 09:56 AM [facility] CBC AND DIFF (AUTO) Specimen Type: BLOOD No comment entered. Ordering Provider: Sherrie CASTILLO Report Released Date/Time: Mar 06, 2024 09:36 AM Reporting Lab: [facility] [address] [facility] [address] Performing Lab: [address] [address] WBC 12.33 10*3/uL H 4.50-11.00 RBC 3.92 [...] and tobacco- related health factors from the [place] facility where the Encounter took place. Current Smoking Status This section includes the most current smoking, or tobacco-related health factor, from the [place] facility where the Encounter took place. Date/Time Current Smoking Status Comment Rosana humphrey Mar 31, 2023 11:00 AM VA-TOBACCO FORMER USER [place] [facility] Tobacco Use History This section includes a history of the smoking, or tobacco-related health factors, that were collected on or before the date of the Encounter. The data comes from the [place] facility where the Encounter took place. Date/Time Smoking Status/Tobac co Use Comment Facility Mar 31, 2023 11:00 AM VA-TOBACCO QUIT 1 TO < 5 YRS [place] [facility] [place] [facility] Mar 25, 2022 10:30 AM VA-TOBACCO NEVER USED [place] [facility] [place] [facility] Mar 19, 2021 02:00 PM VA-TOBACCO FORMER USER [place] [facility] [place] [facility] Mar 19, 2021 02:00 PM VA-TOBACCO QUIT < 1 YEAR [place] [facility] [place] [facility] Sep 20, 2018 11:24 AM VA-TOBACCO USE DECLINED TO ANSWER [place] [facility] [facility] Oct 21, 2017 08:13 AM QUIT TOBACCO USE IN PAST YEAR [place] [facility] [place] [facility] Dec 30, 2016 08:28 AM QUIT TOBACCO USE 1-7 YEARS AGO [place] [facility] [place] [facility] Jun 04, 2016 08:43 AM QUIT TOBACCO USE 1-7 YEARS AGO [place] [facility] [place] [facility] May 17, 2015 08:45 AM QUIT TOBACCO USE 1-7 YEARS AGO quit 2 years ago. [place] [facility] [place] [facility] Jun 07, 2014 09:25 AM QUIT TOBACCO USE 1-7 YEARS AGO [place] [facility] [place] [facility] November 30, 2013 08:44 AM QUIT TOBACCO USE IN PAST YEAR [place] [facility] [place] [facility] May 22, 2013 10:10 AM QUIT TOBACCO USE IN PAST YEAR [place] [facility] [place] [facility] December 01, 2012 01:54 PM QUIT TOBACCO USE IN [facility]ST [facility] [place] [facility] Jun 07, 2012 08:16 AM V1-PT DECLINES TOBACCO CESSATION MEDS [facility] [place] [facility] Jun 07, 2012 08:16 AM V1-PT THINKING ABOUT QUIT TOBACCO USE [facility] [place] [facility] Jan 05, 2012 09:00 AM CURRENT SMOKER intermittenly [facility] [place] [facility] Jan 05, 2012 09:00 AM V1-PT DECLINES REF TO TOBACCO CESS PRGM [facility] [place] [facility] Jan 05, 2012 09:00 AM V1-PT DECLINES TOBACCO CESSATION MEDS [facility] [place] [facility] Jan 05, 2012 09:00 AM V1-PT THINKING ABOUT QUIT TOBACCO USE [place] [facility] [facility] Feb 17, 2011 09:52 AM V1-PT DECLINES TOBACCO CESSATION MEDS [facility] [place] [facility] Feb 17, 2011 09:52 AM V1-PT THINKING ABOUT QUIT TOBACCO USE WI [facility] [place] [facility] Aug 13, 2010 11:31 AM QUIT TOBACCO USE IN PAST YEAR [facility] Feb 19, 2010 01:26 PM QUIT TOBACCO USE IN PAST YEAR [facility] Sep 13, 2009 11:04 AM QUIT TOBACCO USE IN PAST YEAR [facility] Feb 05, 2009 08:29 AM V1-PT DECLINES REF TO TOBACCO CESS PRGM [facility] Feb 05, 2009 08:29 AM V1-PT DECLINES TOBACCO CESSATION MEDS [facility] Feb 05, 2009 08:29 AM V1-PT THINKING ABOUT QUIT TOBACCO USE [facility] Aug 22, 2008 09:04 AM QUIT TOBACCO USE IN PAST YEAR [facility] Mar 12, 2008 10:40 AM V1-PT DECLINES REF TO TOBACCO CESS PRGM [facility] Mar 12, 2008 10:40 AM V1-PT DECLINES TOBACCO CESSATION MEDS [facility] Mar 12, 2008 10:40 AM V1-PT NOT INTERESTED IN QUIT TOBACCO USE [facility] Mar 08, 2008 09:37 AM CURRENT SMOKER smokes one pack a day for about 10 years ago. [facility] Encounter Notes: All associated encounter notes This section contains the clinical notes associated to the Encounter. Date/Time Encounter Note(s) Provider Source Mar 06, 2024 10:26 AM ACCOUNTING OF DISCLOSURES NOTE: LOCAL TITLE: [facility] PRESCRIPTION DRUG MONITORING PROGRAM STANDARD TITLE: ACCOUNTING OF DISCLOSURES NOTE DATE OF NOTE: MAR 06, 2024@10:26:35 ENTRY DATE: MAR 06, 2024@10:26:35 AUTHOR: JOSE E SUAREZ EXP COSIGNER: URGENCY: STATUS: COMPLETED This PDMP query was submitted by Jose E Suarez MD. The clinical justification for this PDMP query is to review controlled substances prescribed outside of the [place], and any additional information that may become available, as an important component of standard clinical care, and in accordance with [facility] policy. Patient information was shared with the PDMP [employer] [place]. No prescription(s) for controlled substances outside the [place] were found in the last 90 days. 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 03/04/2024 1 02/14/2024 Clonazepam 0.5 Mg Tablet 120.00 30 Ar Mon [id number] [place] (4904) 1/ /[place] 02/16/2024 1 02/14/2024 Clonazepam 0.5 Mg Tablet 120.00 30 Ar Mon [id number] [place] (4904) 0/ /[place] 02/14/2024 1 11/17/2023 Buprenorphine 2 Mg Tablet Sl 240.[id number] (4904) 3 16.00 mg /[place] 01/31/2024 1 01/03/2024 Temazepam 30 Mg Capsule 30.[id number] (4904) 0/ /[place] 01/31/2024 1 01/26/2024 Oxycodone Hcl (Ir) 5 Mg Tablet 224.00 28 [place] Cut [id number] [place] (4904) 0/0 60.00 MME /[place] MS 01/20/2024 1 11/17/2023 Buprenorphine 2 Mg Tablet Sl 240.[id number] (4904) 2 16.00 mg /[place] 01/20/2024 1 01/03/2024 Clonazepam 0.5 Mg Tablet 120.[id number] (4904) 0/1 /[place] 01/04/2024 1 01/04/2024 Oxycodone Hcl (Ir) 5 Mg Tablet 336.00 28 [place] Cut [id number] [place] (4904) 0/0 90.00 MME /[place] 12/31/2023 1 11/17/2023 Buprenorphine 2 Mg Tablet Sl 240.[id number] (4904) 1 16.00 mg /[place] 12/31/2023 1 10/07/2023 Temazepam 30 Mg Capsule 30.[id number] (4904) 3/ /[place] 12/16/2023 1 12/16/2023 Clonazepam 0.5 Mg Tablet 28.00 7 Ar Mon [id number] [place] (4904) 0/0 /[place] 12/15/2023 1 10/07/2023 Clonazepam 0.5 Mg Tablet 60.00 30 Ar Mon [id number] [place] (5614) 2/ /[place] 12/08/2023 1 12/07/2023 Oxycodone Hcl (Ir) 5 Mg Tablet 336.00 28 Wi Cut 6847415 [place] (4904) 0/0 90.00 MME /[place] 11/26/2023 1 11/17/2023 Buprenorphine 2 Mg Tablet Sl 240.00 30 Wi Cut [id number] [place] (4904) 0/5 16.00 mg /[place] 11/25/2023 1 10/07/2023 Temazepam 30 Mg Capsule 30.00 30 Ar Mon [id number] [place] (4904) 2/ /[place] 11/17/2023 1 10/07/2023 Clonazepam 0.5 Mg Tablet 60.00 30 Ar Mon [id number] [place] (4464) 1/ /[place] 11/12/2023 1 06/24/2023 Buprenorphine 2 Mg Tablet Sl 120.00 30 Wi Cut [id number] [place] (4904) 4/5 8.00 mg /[place] 11/05/2023 1 11/04/2023 Oxycodone Hcl (Ir) 5 Mg Tablet 336.00 28 Wi Cut 4673053 [place] (4904) 0/0 90.00 MME /[place] 10/25/2023 1 10/07/2023 Temazepam 30 Mg Capsule 30.00 30 Ar Mon [id number] [place] (4904) 1/ /[place] 10/19/2023 2 10/19/2023 Clonazepam 0.25 Mg Odt 5.00 5 Ja Fle [id number] [facility] (7608) 0/0 Medicare [place] 10/19/2023 1 06/24/2023 Buprenorphine 2 Mg Tablet Sl 120.00 30 Wi Cut 2310167 [place] (4904) 3/5 8.00 mg /[place] 10/18/2023 1 10/07/2023 Clonazepam 0.5 Mg Tablet 60.00 30 Ar Mon [id number] [place] (5614) 0/ /[place] 10/07/2023 1 10/07/2023 Temazepam 30 Mg Capsule 30.00 30 Ar Mon [id number] [place] (4904) 0/3 /[place] 10/06/2023 1 10/06/2023 Oxycodone Hcl (Ir) 5 Mg Tablet 448.00 28 Wi Cut [id number] [place] (4904) 0/0 120.00 MME /[place] 09/23/2023 1 09/21/2023 Temazepam 30 Mg Capsule 13.00 13 Ar Mon [id number] [place] (4904) 0/0 /[place] 09/23/2023 1 09/22/2023 Oxycodone Hcl (Ir) 5 Mg Tablet 240.00 15 Wi Cut 1334055 [place] (4904) 0/0 120.00 MME /[place] 09/22/2023 1 08/05/2023 Clonazepam 0.5 Mg Tablet 60.00 30 Ar Mon [id number] [place] (4904) 2/ /[place] 09/09/2023 1 09/08/2023 Oxycodone Hcl (Ir) 5 Mg Tablet 240.00 15 Wi Cut 0844102 [place] (4904) 0/0 120.00 MME /[place] 09/01/2023 2 09/01/2023 Hydromorphone 4 Mg Tablet 20.00 5 Ya Sherine [id number] [facility] (7608) 0/0 80.00 MME Medicare [place] 09/01/2023 1 06/24/2023 Buprenorphine 2 Mg Tablet Sl 120.00 30 Wi Cut 5359400 [place] (4904) 2/ 8.00 mg /[place] 08/26/2023 1 08/05/2023 Clonazepam 0.5 Mg Tablet 60.00 30 Ar Mon [id number] [place] (4904) / /[place] // JOSE E SUAREZ MD PHYSICIAN Signed: 03/06/2024 10:26 JOSE E SUAREZ [place] [facility] Feb 09, 2024 12:16 PM PAIN MEDICINE OUTPATIENT NOTE: LOCAL TITLE: PAIN CLINIC NOTE STANDARD TITLE: PAIN MEDICINE OUTPATIENT NOTE DATE OF NOTE: FEB 09, 2024@12:16 ENTRY DATE: FEB 09, 2024@12:16:29 AUTHOR: WENDY MADSEN EXP COSIGNER: URGENCY: STATUS: COMPLETED Phone visit with patient after she stopped at window and asked for me to call her REILLY. She was at the ED a couple nights for right thigh wound which opened up. She had elevated potassium, had repeat level which was coming down. Level was initially 6.1 and came down to maybe 5.8. She is on lisinopril from PCP and Bactrim from ID. Upon further discussion she realizes that she does not need anything from pain clinic now. PCP ordered her labs and is aware of the situtation. She is in the lab now having a repeat blood test. /divya/ Wendy Madsen MD STAFF PHYSICIAN Signed: 02/09/2024 12:17 WENDY MADSEN [place] [facility] [facility]
--- OUTSIDE RECORDS SUMMARY | 2024-07-05 03:40 | XMS_ITS | Encounter Summary ---
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 [facility] [place] Address [address] [place] [address] Care Team Providers Care Hospital Educator Name Role Phone ROMANA CASTILLO Primary Care [...] Garcia [facility] (MEDICAID) MEDICAID ME DEPT HUMAN [facility] May 14, 2009 [id number] SAMPLE,ROCCO MOORE PATIENT [facility] May 14, 2009 [id number] SAMPLE,ROCCO MOORE PATIENT MEDICAID MEDICAID [facility] [facility] Jul 26, 2018 MEDICAI D [id number] SAMPLE,ROCCO MOORE PATIENT MEDICARE (WNR) MEDICARE (M) PART B November 24, 2015 PART B [id number] SAMPLE,ROCCO MOORE PATIENT MEDICARE (WNR) MEDICARE (M) PART A November 24, 2015 PART A [id number] SAMPLE,ROCCO MOORE PATIENT Selected Encounter This section includes the information on record at CT for the Encounter. Date/Time Encounter Type Encounter Description Reason Pro vider Source Feb 11, 2024 01:58 PM Outpatient Encounter ADMIN PAT ACTIVTIES (MASNONCT) IHE Encounter Template Text not used by CT Plan of Treatment: Future Appointments (+ 6 [...] 14, 2024 11:00 AM AMBULATORY - PSYCHIATRY [facility] [place] [facility] Mar 06, 2024 09:00 AM AMBULATORY - MEDICINE [facility] C [facility] [place] [facility] Apr 03, 2024 11:30 AM AMBULATORY - MEDICINE [facility] C [facility] [facility] Apr 13, 2024 11:[address] [facility] [place] [facility] Apr 13, 2024 02:00 PM AMBULATORY - MEDICINE CT C [facility] [place] [facility] Apr 13, 2024 03:00 PM AMBULATORY - MEDICINE CT C [facility] [place] [facility] May 02, 2024 11:00 AM AMBULATORY - MEDICINE [facility] C [facility] [facility] May 15, 2024 11:[address] [facility] [place] [facility] May 25, 2024 11:30 AM AMBULATORY - MEDICINE [facility] C [facility] [place] [facility] Jul 13, 2024 10:00 AM AMBULATORY - MEDICINE [facility] [place] [facility] Active, Pending, and Scheduled Orders This section includes a listing of several types of active, pending, and scheduled orders, including clinic medications orders, diagnostic test orders, procedure orders and consult orders; where the start date of the order is 45 days before the date of the Encounter or 45 days after the date of theEncounter. The data comes from all [facility]. Test Date/Time Test Type Test Details Facility Name Jan 17, 2024 12:00 AM Laboratory - Chemistry Order BASIC METABOLIC PANEL (non-fasting) BLOOD (SST-SERUM) [facility] Jan 17, 2024 12:00 AM Laboratory - Chemistry Order LIPID PANEL, NON FASTING BLOOD (SST-SERUM) [facility] Jan 17, 2024 12:00 AM Laboratory - Chemistry Order LIVER FUNCTION BLOOD (SST-SERUM) [facility] Jan 17, 2024 12:00 AM Laboratory - Chemistry Order MICROALBUMIN CREATININE RATIO PANEL URINE (RANDOM) [facility] Jan 17, 2024 12:00 AM Laboratory - Chemistry Order TSH BLOOD (SST-SERUM) [facility] Lab Results: +/- 30 days [...] Range Comment Mar 06, 2024 09:56 AM [facility] IRON & TIBC PANEL Specimen Type: SERUM No comment entered. Ordering Provider: Sherrie CASTILLO Report Released Date/Time: Mar 06, 2024 09:36 AM Reporting Lab: [address] [address] Performing Lab: [address] [address] TIBC 364 ug/dL 204-475 IRON 36 ug/dL L 40-160 Transferrin Saturation 9.9 L 20.0-50.0 Mar 06, 2024 09:56 AM [facility] FERRITIN Specimen Type: SERUM No comment entered. Ordering Provider: Sherrie CASTILLO Report Released Date/Time: Mar 06, 2024 09:36 AM Reporting Lab: [address] [address] Performing Lab: [facility] [address] [facility] [address] FERRITIN 52 ng/mL 10-200 Mar 06, 2024 09:56 AM [facility] HEMOGLOBIN A1C PANEL Specimen Type: BLOOD [...] Mar 06, 2024 09:36 AM Reporting Lab: [address] [address] Performing Lab: [address] [address] HEMOGLOBIN A1C 5.4 4.0-5.6 Mar 06, 2024 09:56 AM [facility] VITAMIN D (25-OH) Specimen Type: SERUM No comment entered. Ordering Provider: Sherrie CASTILLO Report Released Date/Time: Mar 06, 2024 09:36 AM Reporting Lab: [address] [address] Performing Lab: [address] [address] VITAMIN D (25-OH) 20 ng/mL 20-50 Mar 06, 2024 09:56 AM [facility] MICROALBUMIN CREATININE RATIO PANEL Specimen Type: URINE No comment entered. Ordering Provider: Sherrie CASTILLO Report Released Date/Time: Mar 06, 2024 09:36 AM Reporting Lab: [address] [address] Performing Lab: [address] [address] MICROALBUMIN/C REATININE RATIO 251.1 mg/g H 0-29.9 MICROALBUMIN,Q UANTITATIVE 11.2 mg/dL RR UNAVAIL CREATININE URINE 44.60 mg/dL Mar 06, 2024 09:56 AM [facility] BASIC METABOLIC PANEL (non-fasting) Specimen Type: SERUM No comment entered. Ordering Provider: Sherrie CASTILLO Report Released Date/Time: Mar 06, 2024 09:36 AM Reporting Lab: [facility] [address] [facility] [address] Performing Lab: [facility] [address] [facility] [address] UREA NITROGEN 28 mg/dL H 7-25 GLUCOSE 130 mg/dL H 65-100 SODIUM 142 mmol/L 135-145 POTASSIUM 4.8 mmol/L 3.5-5.0 CHLORIDE 97 mmol/L L 100-110 CO2 33 meq/L H 20-30 CREATININE, Serum 1.00 mg/dL 0.50-1.40 eGFR(CKD-EPI 2020) 63 mL/min >60 Mar 06, 2024 09:56 AM [facility] CBC AND DIFF (AUTO) Specimen Type: BLOOD No comment entered. Ordering Provider: Sherrie CASTILLO Report Released Date/Time: Mar 06, 2024 09:36 AM Reporting Lab: [facility] [address] [facility] [address] Performing Lab: [address] [address] WBC 12.33 10*3/uL H 4.50-11.00 RBC 3.92 [...] took place. Date/Time Current Smoking Status Comment [facility] Mar 31, 2023 11:00 AM VA-TOBACCO QUIT 1 TO < [address] [facility] [place] [facility] Tobacco Use History This section includes a history of the smoking, or tobacco-related health factors, that were collected on or before the date of the Encounter. The data comes from the CT facility where the Encounter took place. Date/Time Smoking Status/Tobac co Use Comment Facility Mar 31, 2023 11:00 AM VA-TOBACCO QUIT 1 TO < [address] [facility] [place] [facility] Mar 25, 2022 10:30 AM VA-TOBACCO NEVER USED CT [facility] [place] [facility] Mar 19, 2021 02:00 PM VA-TOBACCO FORMER USER CT [facility] [place] [facility] Mar 19, 2021 02:00 PM VA-TOBACCO QUIT < [address] [facility] [place] [facility] Sep 20, 2018 11:24 AM VA-TOBACCO USE DECLINED TO ANSWER CT [facility] [place] [facility] Oct 21, 2017 08:13 AM QUIT TOBACCO USE IN PAST YEAR CT [facility] [place] [facility] Dec 30, 2016 08:28 AM QUIT TOBACCO USE 1-[address] [facility] [place] [facility] Jun 04, 2016 08:43 AM QUIT TOBACCO USE 1-[address] [facility] [place] [facility] May 17, 2015 08:45 AM QUIT TOBACCO USE 1-7 YEARS AGO quit [address] [facility] [place] [facility] Jun 07, 2014 09:25 AM QUIT TOBACCO USE 1-[address] [facility] [place] [facility] November 30, 2013 08:44 AM QUIT TOBACCO USE IN PAST YEAR [facility] [place] [facility] May 22, 2013 10:10 AM QUIT TOBACCO USE IN PAST YEAR [facility] [place] [facility] December 01, 2012 01:54 PM QUIT TOBACCO USE IN PAST YEAR [facility] [place] [facility] Jun 07, 2012 08:16 AM V1-PT DECLINES TOBACCO CESSATION [facility] [place] [facility] Jun 07, 2012 08:16 AM V1-PT THINKING ABOUT QUIT TOBACCO USE [facility] [place] [facility] Jan 05, 2012 09:00 AM CURRENT SMOKER intermittenly [facility] [place] [facility] Jan 05, 2012 09:00 AM V1-PT DECLINES REF TO TOBACCO CESS [facility] [place] [facility] Jan 05, 2012 09:00 AM V1-PT DECLINES TOBACCO CESSATION MEDS [facility] [place] [facility] Jan 05, 2012 09:00 AM V1-PT THINKING ABOUT QUIT TOBACCO USE CT [facility] [place] [facility] Feb 17, 2011 09:52 AM V1-PT DECLINES TOBACCO CESSATION MEDS [facility] [place] [facility] Feb 17, 2011 09:52 AM V1-PT THINKING ABOUT QUIT TOBACCO USE CT [facility] [place] [facility] Aug 13, 2010 11:31 AM QUIT TOBACCO USE IN PAST YEAR [facility] [place] [facility] Feb 19, 2010 01:26 PM QUIT TOBACCO USE IN PAST YEAR [facility] [place] [facility] Sep 13, 2009 11:04 AM QUIT TOBACCO USE IN PAST YEAR [facility] Feb 05, 2009 08:29 AM V1-PT DECLINES REF TO TOBACCO CESS PRGM [facility] Feb 05, 2009 08:29 AM V1-PT DECLINES TOBACCO CESSATION MEDS [facility] Feb 05, 2009 08:29 AM V1-PT THINKING ABOUT QUIT TOBACCO USE [facility] Aug 22, 2008 09:04 AM QUIT TOBACCO USE IN PAST YEAR [facility] Mar 12, 2008 10:40 AM V1-PT DECLINES REF TO TOBACCO CESS PRGM [facility] Mar 12, 2008 10:40 AM V1-PT DECLINES TOBACCO CESSATION MEDS [facility] Mar 12, 2008 10:40 AM V1-PT NOT INTERESTED IN QUIT TOBACCO USE [facility] Mar 08, 2008 09:37 AM CURRENT SMOKER smokes one pack a day for about 10 years ago. [facility] Encounter Notes: All associated encounter notes This section contains the clinical notes associated to the Encounter. Date/Time Encounter Note(s) Provider Source Feb 11, 2024 01:58 PM ADMINISTRATIVE NOT E: LOCAL TITLE: CCC: SCHEDULING ADMINISTRATION STANDARD TITLE: ADMINISTRATIVE NOTE DATE OF NOTE: FEB 11, 2024@13:58:24 ENTRY DATE: FEB 11, 2024@13:58:24 AUTHOR: WESTLEY MORA EXP COSIGNER: URGENCY: STATUS: COMPLETED Patient Demographics Patient Name: REID QUEZADA Patient Primary Phone: [phone] Patient Primary Address: [address] [place] [id number] Patient : 1960 Patient Age: 64 Caller/Recipient Relation to Patient: Other If Other Describe Relation to Patient: [facility] Caller Name: Olga Administrative Administrative Note Reason: Home Health / Shelter Administrative Note Comments: Olga from [facility] called requesting PACT team call back the facility to approve home health orders. Please call back at [phone] opt 2 /es/ WESTLEY MORA VISEvi 1 [facility] AMSA Signed: 02/11/2024 13:58 Receipt Acknowledged By: 02/18/2024 12:43 /es/ OLGA GREEN, MSN, RN, CNL PRIMARY CARE TEAM NURSE 02/18/2024 12:42 /es/ Fabiola Hooker, patcher helper Staff Nurse [facility]
--- OUTSIDE RECORDS SUMMARY | 2024-07-05 03:40 | XMS_ITS ---
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 [facility] [place] [facility] [place] [facility] [place] Address [address] [place] [address] Care Team Providers Care Eye Technician Name Role Phone ROMANA CASTILLO Primary Care [...] Policy Garcia [facility] (MEDICAID) [facility] May 14, 2009 [id number] SAMPLE,ROCCO MOORE PATIENT [facility]ID [facility] May 14, 2009 [id number] SAMPLE,ROCCO MOORE PATIENT MEDICAID MEDICAID [facility] STAND ESTEFANY Jul 26, 2018 MEDICAI D [id number] SAMPLE,ROCCO MOORE PATIENT MEDICARE (WNR) MEDICARE (M) PART A November 24, 2015 PART A [id number] SAMPLE,ROCCO MOORE PATIENT MEDICARE (WNR) MEDICARE (M) PART B November 24, 2015 PART B [id number] SAMPLE,ROCCO MOORE PATIENT Selected Encounter This section includes the information on record at [place] for the Encounter. Date/Time Encounter Type Encounter Description Reason Provider Source Feb 14, 2024 11:00 AM OFFICE O/P EST LOW 20 MIN SUBSTANCE USE DISORDER IND ICD-10-CM F41.9 Anxiety disorder, unspecified BAYRON CSOTT MD IHE Encounter Template Text not used by [place] Assessments - Encounter Diagnoses This section includes the primary and secondary diagnoses documented for the Encounter. Date/Time Primary/Secondary Diagnosis Diagnosis Name Provider Source Feb 14, 2024 11:22 AM PRIMARY Anxiety disorder, unspecified BAYRON SCOTT MD [place] [facility] [place] [facility] Feb 14, 2024 11:22 AM SECONDARY Insomnia, unspecified BAYRON SCOTT MD [place] [facility] [place] [facility] Plan of Treatment: Future Appointments (+ 6 months) and Future Tests (+/- 45 days) The Plan of Treatment section includes future care activities for the patient from all [place] [facility]. This section includes future appointments and future orders which are active, pending or scheduled. Future Appointments This section includes appointments that were scheduled to occur 6 months from the date of the Encounter, up to a maximum of 20 appointments. The data comes from all [place] treatment facilities. Appointment Date/Time Appointment Type Appointme nt Facility Name Mar 06, 2024 09:00 AM AMBULATORY - [place]ICINE [place] [facility] [place] [facility] Apr 03, 2024 11:30 AM AM[place] [facility] [place] [facility] Apr 13, 2024 11:00 AM AMBULATORY - [place] [facility] [place] [facility] Apr 13, 2024 02:00 PM AMBUL[place]ORY [place] [facility] [place] [facility] Apr 13, 2024 03:00 PM [place]ORY [place] [facility] [place] [facility] May 02, 2024 11:00 AM AM[place]ORY [place] [facility] [place] [facility] May 15, 2024 11:30 AM AMBULATORY - PS[place]IATRY [place] [facility] [place] [facility] May 25, 2024 11:30 AM AM[place]UL[place]ORY [place]IC[place] [facility] [place] [facility] Jul 13, 2024 10:00 AM AMBULATORY - MEDICINE [facility] Active, Pending, and Scheduled Orders This section includes a listing of several types of active, pending, and scheduled orders, including clinic medications orders, diagnostic test orders, procedure orders and consult orders; where the start date of the order is 45 days before the date of the Encounter or 45 days after the date of theEncounter. The data comes from all [place] treatment facilities. Test Date/Time Test Type Test Details Facility Name Jan 17, 2024 12:00 AM Laboratory - Chemistry Order BASIC METABOLIC PANEL (non-fasting) BLOOD (SST-SERUM) [facility] Jan 17, 2024 12:00 AM Laboratory - Chemistry Order LIPID PANEL, NON FASTING BLOOD (SST-SERUM) [facility] Jan 17, 2024 12:00 AM Laboratory - Chemistry Order LIVER FUNCTION BLOOD (SST-SERUM) [facility] Jan 17, 2024 12:00 AM Laboratory - Chemistry Order TSH BLOOD (SST-SERUM) [facility] Jan 17, 2024 12:00 AM Laboratory - Chemistry Order MICROALBUMIN CREATININE RATIO PANEL URINE (RANDOM) [facility] Lab Results: +/- 30 days of the encounter This section includes the Chemistry and Hematology Lab Results on record with [place] for the patient. Radiology Reports and Pathology Reports are provided separately, in subsequent sections. Lab Results This section contains the Chemistry/Hematology Results that were resulted 30 days before or 30 daysafter the date of the Encounter. Date/Time Source Result Type Result - Unit Interpretation Reference Range Comment Mar 06, 2024 09:56 AM [facility] VITAMIN D (25-OH) Specimen Type: SERUM No comment entered. Ordering Provider: Sherrie CASTILLO Report Released Date/Time: Mar 06, 2024 09:36 AM Reporting Lab: [address] [address] Performing Lab: [address] [address] VITAMIN D (25-OH) 20 ng/mL 20-50 Mar 06, 2024 09:[address] [facility] IRON & TIBC PANEL Specimen Type: SERUM No comment entered. Ordering Provider: Sherrie CASTILLO Report Released Date/Time: Mar 06, 2024 09:36 AM Reporting Lab: [facility] [address] [address] Performing Lab: [facility] [address] [address] TIBC 364 ug/dL 204-475 IRON 36 ug/dL L 40-160 Transferrin Saturation 9.9 L 20.0-50.0 Mar 06, 2024 09:56 AM [facility] FERRITIN Specimen Type: SERUM No comment entered. Ordering Provider: Sherrie CASTILLO Report Released Date/Time: Mar 06, 2024 09:36 AM Reporting Lab: [facility] [address] [facility] [address] Performing Lab: [facility] [address] [address] FERRITIN 52 ng/mL 10-200 Mar 06, 2024 09:56 AM [facility] HEMOGLOBIN A1C PANEL Specimen Type: [...] Mar 06, 2024 09:36 AM Reporting Lab: [facility] [address] [address] Performing Lab: [facility] [address] HEMOGLOBIN A1C 5.4 4.0-5.6 Mar 06, 2024 09:56 AM [facility] MICROALBUMIN CREATININE RATIO PANEL Specimen Type: URINE No comment entered. Ordering Provider: Sherrie CASTILLO Report Released Date/Time: Mar 06, 2024 09:36 AM Reporting Lab: [facility] [address] [address] [address] Performing Lab: [address] [address] MICROALBUMIN/C REATININE RATIO 251.1 mg/g H 0-29.9 MICROALBUMIN,Q UANTITATIVE 11.2 mg/dL RR UNAVAIL CREATININE URINE 44.60 mg/dL Mar 06, 2024 09:56 AM [facility] BASIC METABOLIC PANEL (non-fasting) Specimen Type: SERUM No comment entered. Ordering Provider: Sherrie CASTILLO Report Released Date/Time: Mar 06, 2024 09:36 AM Reporting Lab: [address] [address] Performing Lab: [address] [address] UREA NITROGEN 28 mg/dL H 7-25 GLUCOSE 130 mg/dL H 65-100 SODIUM 142 mmol/L 135-145 POTASSIUM 4.8 mmol/L 3.5-5.0 CHLORIDE 97 mmol/L L 100-110 CO2 33 meq/L H 20-30 CREATININE, Serum 1.00 mg/dL 0.50-1.40 eGFR(CKD-EPI 2020) 63 mL/min >60 Mar 06, 2024 09:56 AM [facility] CBC AND DIFF (AUTO) Specimen Type: BLOOD No comment entered. Ordering Provider: Sherrie CASTILLO Report Released Date/Time: Mar 06, 2024 09:36 AM Reporting Lab: [address] [address] Performing Lab: [address] [address] WBC 12.33 10*3/uL H 4.50-11.00 RBC 3.92 [...] and tobacco- related health factors from the [place] facility where the Encounter took place. Current Smoking Status This section includes the most current smoking, or tobacco-related health factor, from the [place] facility where the Encounter took place. Date/Time Current Smoking Status Comment [facility] Mar 31, 2023 11:00 AM VA-TOBACCO FORMER USER [facility] Tobacco Use History This section includes a history of the smoking, or tobacco-related health factors, that were collected on or before the date of the Encounter. The data comes from the [place] facility where the Encounter took place. Date/Time Smoking Status/Tobac co Use Comment Facility Mar 31, 2023 11:00 AM VA-TOBACCO QUIT 1 TO < 5 YRS [facility] Mar 25, 2022 10:30 AM VA-TOBACCO NEVER USED [facility] [place] [facility] Mar 19, 2021 02:00 PM VA-TOBACCO FORMER USER [place] [facility] [place] [facility] Mar 19, 2021 02:00 PM VA-TOBACCO QUIT < 1 YEAR [place] [facility] [place] [facility] Sep 20, 2018 11:24 AM VA-TOBACCO USE DECLINED TO ANSWER [facility] [place] [facility] Oct 21, 2017 08:13 AM QUIT TOBACCO USE IN PAST YEAR [place] [facility] [place] [facility] Dec 30, 2016 08:28 AM QUIT TOBACCO USE 1-7 YEARS AGO [place] [facility] [place] [facility] Jun 04, 2016 08:43 AM QUIT TOBACCO USE 1-7 YEARS AGO [place] [facility] [place] [facility] May 17, 2015 08:45 AM QUIT TOBACCO USE 1-7 YEARS AGO quit 2 years ago. [place] [facility] [place] [facility] Jun 07, 2014 09:25 AM QUIT TOBACCO USE 1-7 YEARS AGO [place] [facility] [place] [facility] November 30, 2013 08:44 AM QUIT TOBACCO USE IN PAST YEAR [place] [facility] [place] [facility] May 22, 2013 10:10 AM QUIT TOBACCO USE IN PAST YEAR [facility] [place] [facility] December 01, 2012 01:54 PM QUIT TOBACCO USE IN PAST YEAR [place] [facility] [place] [facility] Jun 07, 2012 08:16 AM V1-PT DECLINES TOBACCO CESSATION MEDS [facility] [place] [facility] Jun 07, 2012 08:16 AM V1-PT THINKING ABOUT QUIT TOBACCO USE [facility] [place] [facility] Jan 05, 2012 09:00 AM CURRENT SMOKER intermittenly [facility] [place] [facility] Jan 05, 2012 09:00 AM V1-PT DECLINES REF TO TOBACCO CESS PRGM [place] [facility] [place] [facility] Jan 05, 2012 09:00 AM V1-PT DECLINES TOBACCO CESSATION MEDS [place] [facility] [place] [facility] Jan 05, 2012 09:00 AM V1-PT THINKING ABOUT QUIT TOBACCO USE [facility] [place] [facility] Feb 17, 2011 09:52 AM V1-PT DECLINES TOBACCO CESSATION MEDS [place] [facility] [place] [facility] Feb 17, 2011 09:52 AM V1-PT THINKING ABOUT QUIT TOBACCO USE [facility] Aug 13, 2010 11:31 AM QUIT TOBACCO USE IN PAST YEAR [facility] Feb 19, 2010 01:26 PM QUIT TOBACCO USE IN PAST YEAR [facility] Sep 13, 2009 11:04 AM QUIT TOBACCO USE IN PAST YEAR [facility] Feb 05, 2009 08:29 AM V1-PT DECLINES REF TO TOBACCO CESS PRGM [facility] Feb 05, 2009 08:29 AM V1-PT DECLINES TOBACCO CESSATION MEDS [facility] Feb 05, 2009 08:29 AM V1-PT THINKING ABOUT QUIT TOBACCO USE [facility] Aug 22, 2008 09:04 AM QUIT TOBACCO USE IN PAST YEAR [facility] Mar 12, 2008 10:40 AM V1-PT DECLINES REF TO TOBACCO CESS PRGM [facility] Mar 12, 2008 10:40 AM V1-PT DECLINES TOBACCO CESSATION MEDS [facility] Mar 12, 2008 10:40 AM V1-PT NOT INTERESTED IN QUIT TOBACCO USE [facility] Mar 08, 2008 09:37 AM CURRENT SMOKER smokes one pack a day for about 10 years ago. [facility] Encounter Notes: All associated encounter notes This section contains the clinical notes associated to the Encounter. Date/Time Encounter Note(s) Provider Source Feb 14, 2024 10:21 AM ACCOUNTING OF DISCLOSURES NOTE: LOCAL TITLE: [facility] PRESCRIPTION DRUG MONITORING PROGRAM STANDARD TITLE: ACCOUNTING OF DISCLOSURES NOTE DATE OF NOTE: FEB 14, 2024@10:21:44 ENTRY DATE: FEB 14, 2024@10:21:44 AUTHOR: MATEO SCOTT EXP COSIGNER: URGENCY: STATUS: COMPLETED This PDMP query was submitted by Mateo Scott MD, MD. The clinical justification for this PDMP query is to review controlled substances prescribed outside of the [place], and any additional information that may become available, as an important component of standard clinical care, and in accordance with [facility] policy. Patient information was shared with the [facility] [employer] [place]. No prescription(s) for controlled substances outside the [place] were found in the last 90 days. /divya/ MATEO SCOTT JR, MD STAFF PSYCHIATRIST Signed: 02/14/2024 11:22 MATEO SCOTT MD [place] [facility] [place] [facility] Feb 14, 2024 09:59 AM TELEHEALTH NOTE: LOCAL TITLE: [facility] VIDEO CONNECT NOTE STANDARD TITLE: TELEHEALTH NOTE DATE OF NOTE: FEB 14, 2024@09:59 ENTRY DATE: FEB 14, 2024@09:59:48 AUTHOR: MATEO SCOTT EXP COSIGNER: URGENCY: STATUS: COMPLETED [facility] Video Connect ([facility]VC) Standard Documentation VVC Clinician Resources Only: E911 (Emergency Call Relay Center): [phone] [facility] Crisis Line - 988 then press #1. [facility] Suicide Coordinator [phone], Ext. [phone]; Back-up Ext. [phone] [place] Police, [place] DIAZ [phone] Introduction: Visit is being conducted by [place] [employer]. [place] identified with 2 identifiers: [X] Full Name [X] Date of [ ] VA ID Card Emergency Plan: [place] confirmed and/or provided the following information in case of emergency or technology failure. PATIENT PHONE - PHONE NUMBER [CELLULAR] - Is patient phone number correct, if not, enter below: [place]'s phone number: [address] [place] [address] [place]'s emergency contact name and phone number: STELLA Cardenas [phone] [place] reported that location is private and safe: Yes Informed Consent: informed of the risks and benefits of Telehealth video care. has the right to refuse video services. If refuses video visit, a [id number] visit will be scheduled. [place] verbalized consent for this video visit: Yes provided consent for any other persons present for visit: N/A If yes, who and relationship to patient: Secure visit: Visit was locked for security and privacy: Yes Medications were reconciled with Active Outpatient Medications: 1) ATORVASTATIN CALCIUM 80MG TAB TAKE ONE TABLET BY MOUTH ONCE DAILY FOR CHOLESTEROL 2) BUPRENORPHINE HCL 2MG SUBLINGUAL TAB DISSOLVE ONE TABLET UNDER THE TONGUE THREE TIMES A DAY 3) CLONAZEPAM 0.5MG TAB TAKE ONE TABLET BY MOUTH EVERY MORNING AND TAKE ONE- HALF TABLET TWICE DAILY NEEDED 4) DILTIAZEM (EQV-TIAZAC) 180MG 24HR CAP TAKE ONE CAPSULE BY MOUTH ONCE DAILY 5) LISINOPRIL 40MG TAB TAKE ONE TABLET BY MOUTH ONCE DAILY TO CONTROL BLOOD PRESSURE 6) OXYCODONE HCL 5MG TAB NOT SA TAKE TWO TABLETS BY MOUTH EVERY 4 HOURS NEEDED FOR PAIN 7) TEMAZEPAM 30MG CAP TAKE ONE CAPSULE BY MOUTH AT BEDTIME NEEDED 8) THEOPHYLLINE (JOSE-24) 400MG SA CAP TAKE ONE [...] DIPHTHERIA TOXOID 0.5ML INTRAMUSCULARLY NOW 6) Non-VA [id number]/VILANTERO L25MCG 30D INH 1 INHALATION BY MOUTH ONCE DAILY REID QUEZADA is a 63 yo, female who was [facility] an visit for 20 minutes for medication management. Two identifiers were used. CC: Everything is working fine. My anxiety is fine, Everything is working well. I couldn't be any more happier with it. Umair takes suboxone for pain from Dr. Solorio. No alcohol or substance use, no, sir. 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 Umair states she has been on the same dose of clonazepam an temazepam for 3 years. Clonazepam was recommended by her tread tuber machine operator and stated the clonazepam. Umair tried other anxiety meds, they were awful. No complaints, no cravings, and no adverse side effects from current medications were reported, no . Mood is stable, really well, things are going well. 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 Sleep and appetite are both, very good, appetite is way too good. Discussed continuation of present medications as above. 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 [place] is on a BiPAP machine. Vet declines trying to taper off of benzodiazepines and states they tried before and it didn't work. My anxiety went through the ceiling, it was just awful. She requests continuation of present medication. Discussed continuation of present medications as above. Patient education given including not taking anyone else's medications or giving her medications to anyone else and to secure and protect her medications from theft and children. Vet is agreeable. MSE: REID QUEZADA is an obese, 63 yo, female who is casually dressed wearing a shirt, an O2 cannula, and glasses. She is alert and oriented in all spheres, pleasant and cooperative with good contact during interview. Speech is goal directed with normal kinetics. Mood is euthymic and affect is full and appropriate to thought content. Memory appears to be intact. No suicidal or homicidal ideations, no. No hallucinations or delusions were elicited. Good general fund of knowledge. Insight and judgement is good. Assessment: Anxiety NOS. Insomnia Plan: Continue present medications as above. Encouraged vet to take medications as prescribed. RTC in 2 months or earlier if needed. Vet states PCP is not willing to take over refills of clonazepam and temazepam. Sexual Orientation: The patient thinks of their sexual orientation as: Lesbian or Benítez /divya/ MATEO SCOTT JR, MD STAFF PSYCHIATRIST Signed: 02/14/2024 11:22 MATEO SCOTT MD [place] [facility]
--- OUTSIDE RECORDS SUMMARY | 2024-07-05 03:41 | XMS_ITS ---
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 Name Role Phone ROMANA CASTILLO Primary Care [...] Garcia's Name Patient's Relationship to Policy Garcia [facility] (MEDICAID[facility] MEDICAID [facility] May 14, 2009 [id number] SAMPLE,ROCCO MOORE PATIENT [facility] MEDICAID [facility] May 14, 2009 [id number] SAMPLE,ROCCO MOORE PATIENT MEDICAID MEDICAID [facility] Jul 26, 2018 MEDICAI D [id number] SAMPLE,ROCCO MOORE PATIENT MEDICARE (WNR) MEDICARE (M) PART A November 24, 2015 PART A [id number] SAMPLE,ROCCO MOORE PATIENT MEDICARE (WNR) MEDICARE (M) PART B November 24, 2015 PART B [id number] ROCCO QUEZADA PATIENT Selected Encounter This section includes the information on record at [place] for the Encounter. Date/Time Encounter Type Encounter Description Reason Pro vider Source Feb 25, 2024 02:44 PM Outpatient Encounter TELEPHONE PRIMARY CARE IHE Encounter Template Text not used by [place] Plan of Treatment: Future Appointments (+ 6 months) and Future Tests (+/- 45 days) The Plan of Treatment section includes future care activities for the patient from all [place] treatmentfacilities. This section includes future appointments and future orders which are active, pending or scheduled. Future Appointments This section includes appointments that were scheduled to occur 6 months from the date of the Encounter, up to a maximum of 20 appointments. The data comes from all [place] treatment [facility]. Appointment Date/Time Appointment Type Appointme nt Facility Name Mar 06, 2024 09:00 AM AMBULATORY - MEDICINE [place] [facility] Apr 03, 2024 11:30 AM AMBULATORY - MEDICINE [place] [facility] Apr 13, 2024 11:00 AM AMBULATORY - PSYCHIATRY [place] [facility] [place] [facility] Apr 13, 2024 02:00 PM AMBULATORY - MEDICINE [place] [facility] Apr 13, 2024 03:00 PM AMBULATORY - MEDICINE [place] [facility] May 02, 2024 11:00 AM AMBULATORY - MEDICINE [place] [facility] May 15, 2024 11:30 AM AMBULATORY - PSYCHIATRY [place] [facility] [place] [facility] May 25, 2024 11:30 AM AMBULATORY - MEDICINE [place] [facility] Jul 13, 2024 10:00 AM AMBULATORY - MEDICINE [place] [facility] Aug 24, 2024 11:00 AM AMBULATORY - MEDICINE [facility] [place] [facility] Active, Pending, and Scheduled Orders This section includes a listing of several types of active, pending, and scheduled orders, including clinic medications orders, diagnostic test orders, procedure orders and consult orders; where the start date of the order is 45 days before the date of the Encounter or 45 days after the date of theEncounter. The data comes from all [facility]. Test Date/Time Test Type Test Details Facility Name Jan 17, 2024 12:00 AM Laboratory - Chemistry Order BASIC METABOLIC PANEL (non-fasting) BLOOD (SST[facility]SERUM) [facility] Jan 17, 2024 12:00 AM Laboratory - Chemistry Order LIPID PANEL, NON FASTING BLOOD (SST-SERUM) [facility] Jan 17, 2024 12:00 AM Laboratory - Chemistry Order LIVER FUNCTION BLOOD (SST-SERUM) [facility] Jan 17, 2024 12:00 AM Laboratory - Chemistry Order TSH BLOOD (SST-SERUM) [facility] Jan 17, 2024 12:00 AM Laboratory [...] Range Comment Mar 06, 2024 09:56 AM [facility] VITAMIN D (25-OH) Specimen Type: SERUM No comment entered. Ordering Provider: Sherrie CASTILLO Report Released Date/Time: Mar 06, 2024 09:36 AM Reporting Lab: [address] [address] Performing Lab: [address] [address] VITAMIN D (25-OH) 20 ng/mL 20-50 Mar 06, 2024 09:56 AM [facility] IRON & TIBC PANEL Specimen Type: SERUM No comment entered. Ordering Provider: Sherrie CASTILLO Report Released Date/Time: Mar 06, 2024 09:36 AM Reporting Lab: [address] [address] Performing Lab: [address] [address] TIBC 364 ug/dL 204-475 IRON 36 ug/dL L 40-160 Transferrin Saturation 9.9 L 20.0-50.0 Mar 06, 2024 09:56 AM [facility] FERRITIN Specimen Type: SERUM No comment entered. Ordering Provider: Sherrie CASTILLO Report Released Date/Time: Mar 06, 2024 09:36 AM Reporting Lab: [address] [address] Performing Lab: [address] [address] FERRITIN 52 ng/mL 10-200 Mar 06, 2024 09:56 AM [facility] HEMOGLOBIN A1C PANEL Specimen Type: BLOOD [...] 06, 2024 09:36 AM Reporting Lab: [address] [address] Performing Lab: [address] [address] HEMOGLOBIN A1C 5.4 4.0-5.6 Mar 06, 2024 09:56 AM [facility] MICROALBUMIN CREATININE RATIO PANEL Specimen Type: URINE No comment entered. Ordering Provider: Sherrie CASTILLO Report Released Date/Time: Mar 06, 2024 09:36 AM Reporting Lab: [address] [address] Performing Lab: [address] [address] MICROALBUMIN/C REATININE RATIO 251.1 mg/g H 0-29.9 MICROALBUMIN,Q UANTITATIVE 11.2 mg/dL RR UNAVAIL CREATININE URINE 44.60 mg/dL Mar 06, 2024 09:56 AM [facility] BASIC METABOLIC PANEL (non-fasting) Specimen Type: SERUM No comment entered. Ordering Provider: Sherrie CASTILLO Report Released Date/Time: Mar 06, 2024 09:36 AM Reporting Lab: [address] [address] Performing Lab: [address] [address] UREA NITROGEN 28 mg/dL H 7-25 GLUCOSE 130 mg/dL H 65-100 SODIUM 142 mmol/L 135-145 POTASSIUM 4.8 mmol/L 3.5-5.0 CHLORIDE 97 mmol/L L 100-110 CO2 33 meq/L H 20-30 CREATININE, Serum 1.00 mg/dL 0.50-1.40 eGFR(CKD-EPI 2020) 63 mL/min >60 Mar 06, 2024 09:56 AM [facility] CBC AND DIFF (AUTO) Specimen Type: BLOOD No comment entered. Ordering Provider: Sherrie CASTILLO Report Released Date/Time: Mar 06, 2024 09:36 AM Reporting Lab: [facility] [address] [facility] [address] Performing Lab: [address] [address] WBC 12.33 10*3/uL H 4.50-11.00 RBC 3.92 [...] and tobacco- related health factors from the [place] facility where the Encounter took place. Current Smoking Status This section includes the most current smoking, or tobacco-related health factor, from the [place] facility where the Encounter took place. Date/Time Current Smoking Status Comment [facility] Mar 31, 2023 11:00 AM VA-TOBACCO [facility] Tobacco Use History This section includes a history of the smoking, or tobacco-related health factors, that were collected on or before the date of the Encounter. The data comes from the [place] facility where the Encounter took place. Date/Time Smoking Status/Tobac co Use Comment Facility Mar 31, 2023 11:00 AM VA-TOBACCO QUIT 1 TO < 5 YRS [facility] [place] [facility] Mar 25, 2022 10:30 AM VA-TOBACCO [facility] USED [facility] Mar 19, 2021 02:00 PM VA-TOBACCO FORMER USER [place] [facility] [place] [facility] Mar 19, 2021 02:00 PM VA-TOBACCO QUIT < 1 YEAR [facility] [place] [facility] Sep 20, 2018 11:24 AM VA-TOBACCO USE DECLINED TO ANSWER [facility] Oct 21, 2017 08:13 AM QUIT TOBACCO USE IN PAST YEAR [place] [facility] [place] [facility] Dec 30, 2016 08:28 AM QUIT TOBACCO USE 1-7 YEARS AGO [place] [facility] [place] [facility] Jun 04, 2016 08:43 AM QUIT TOBACCO USE 1-7 YEARS AGO [place] [facility] [place] [facility] May 17, 2015 08:45 AM QUIT TOBACCO USE 1-7 YEARS AGO quit 2 years ago. [place] [facility] [place] [facility] Jun 07, 2014 09:25 AM QUIT TOBACCO USE 1-7 YEARS AGO [place] [facility] [place] [facility] November 30, 2013 08:44 AM QUIT TOBACCO USE IN PAST YEAR [place] [facility] [place] [facility] May 22, 2013 10:10 AM QUIT TOBACCO USE IN PAST YEAR [place] [facility] [place] [facility] December 01, 2012 01:54 PM QUIT TOBACCO USE IN PAST YEAR [facility] [place] [facility] Jun 07, 2012 08:16 AM V1-PT DECLINES TOBACCO CESSATION MEDS [facility] [place] [facility] Jun 07, 2012 08:16 AM V1-PT THINKING ABOUT QUIT TOBACCO USE [facility] [place] [facility] Jan 05, 2012 09:00 AM CURRENT SMOKER intermittenly [facility] [place] [facility] Jan 05, 2012 09:00 AM V1-PT DECLINES REF TO TOBACCO CESS PRGM [facility] [place] [facility] Jan 05, 2012 09:00 AM V1-PT DECLINES TOBACCO CESSATION MEDS [facility] [place] [facility] Jan 05, 2012 09:00 AM V1-PT THINKING ABOUT QUIT TOBACCO USE [place] [facility] [place] [facility] Feb 17, 2011 09:52 AM V1-PT DECLINES TOBACCO CESSATION MEDS [facility] [place] [facility] Feb 17, 2011 09:52 AM V1-PT THINKING ABOUT QUIT TOBACCO USE [place] [facility] [place] [facility] Aug 13, 2010 11:31 AM QUIT TOBACCO USE IN PAST YEAR [facility] [place] [facility] Feb 19, 2010 01:26 PM QUIT TOBACCO USE IN PAST YEAR [facility] [place] [facility] Sep 13, 2009 11:04 AM QUIT TOBACCO USE IN PAST YEAR [facility] Feb 05, 2009 08:29 AM V1-PT DECLINES REF TO TOBACCO CESS PRGM [facility] Feb 05, 2009 08:29 AM V1-PT DECLINES TOBACCO CESSATION MEDS [facility] Feb 05, 2009 08:29 AM V1-PT THINKING ABOUT QUIT TOBACCO USE [facility] Aug 22, 2008 09:04 AM QUIT TOBACCO USE IN PAST YEAR [facility] Mar 12, 2008 10:40 AM V1-PT DECLINES REF TO TOBACCO CESS PRGM [facility] Mar 12, 2008 10:40 AM V1-PT DECLINES TOBACCO CESSATION MEDS [facility] Mar 12, 2008 10:40 AM V1-PT NOT INTERESTED IN QUIT TOBACCO USE [facility] Mar 08, 2008 09:37 AM CURRENT SMOKER smokes one pack a day for about 10 years ago. [facility] Encounter Notes: All associated encounter notes This section contains the clinical notes associated to the Encounter. Date/Time Encounter Note(s) Provider Source Feb 25, 2024 02:44 PM RESPIRATORY THERAP Y NOTE: LOCAL TITLE: RESPIRATORY THERAPY NOTE(BLANK) STANDARD TITLE: RESPIRATORY THERAPY NOTE DATE OF NOTE: FEB 25, 2024@14:44 ENTRY DATE: FEB 25, 2024@14:44:17 AUTHOR: ROSALVA HARMON EXP COSIGNER: URGENCY: STATUS: COMPLETED with COPD uses oxygen through the [place] @2 LPM at rest, 4L with activity and 4L with her BiPAP. Her prescription is due for renewal and she will need to be seen in O2 clinic for a follow-up O2 evaluation. Her prescription will be temporarily renewed until she is seen in clinic. An RTC will be placed. /divya/ ROSALVA HARMON BA, INVENTORY MANAGEMENT SPECIALIST, RPFT RESPIRATORY THERAPIST Signed: 02/25/2024 14:47 ROSALVA HARMON [facility]
--- OUTSIDE RECORDS SUMMARY | 2024-07-05 03:41 | XMS_ITS | Encounter Summary ---
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 Address [address] [place] [address] Care Team Providers Care Policy Checker Name Role Phone ROMANA CASTILLO Primary Care [...] Name Patient's Relationship to Policy Garcia [facility] (MEDICAID) MEDICAID IN DEPT [facility] May 14, 2009 [id number] SAMPLE,ROCCO MOORE PATIENT [facility] MEDICAID [facility] May 14, 2009 [id number] SAMPLE,ROCCO MOORE PATIENT MEDICAID MEDICAID [facility] Jul 26, 2018 MEDICAI D [id number] SAMPLE,ROCCO MOORE PATIENT MEDICARE (WNR) MEDICARE (M) PART A November 24, 2015 PART A [id number] SAMPLE,ROCCO MOORE PATIENT MEDICARE (WNR) MEDICARE (M) PART B November 24, 2015 PART B [id number] SAMPLE,ROCCO MOORE PATIENT Selected Encounter This section includes the information on record at [place] for the Encounter. Date/Time Encounter Type Encounter Description Reason Pro vider Source Mar 04, 2024 05:10 PM Outpatient Encounter ADMIN PAT ACTIVTIES (MASNONCT) IHE Encounter Template Text not used by [place] Plan of Treatment: Future Appointments (+ 6 months) and Future Tests (+/- 45 days) The Plan of Treatment section includes future care activities for the patient from all [place] treatmentfacilities. This section includes future appointments and future orders which are active, pending or scheduled. Future Appointments This section includes appointments that were scheduled to occur 6 months from the date of the Encounter, up to a maximum of 20 appointments. The data comes from all [place] treatment facilities. Appointment Date/Time Appointment Type Appointme nt Facility Name Mar 06, 2024 09:00 AM AMBULATORY - MEDICINE [place] [facility] Apr 03, 2024 11:30 AM AMBULATORY - MEDICINE [place] [facility] Apr 13, 2024 11:00 AM AMBULATORY - PSYCHIATRY [place] [facility] Apr 13, 2024 02:00 PM AMBULATORY - MEDICINE [place] [facility] Apr 13, 2024 03:00 PM AMBULATORY - MEDICINE [place] [facility] May 02, 2024 11:00 AM AMBULATORY - MEDICINE [place] [facility] May 15, 2024 11:30 AM AMBULATORY - PSYCHIATRY [place] [facility] May 25, 2024 11:30 AM AMBULATORY - MEDICINE [place] [facility] Jul 13, 2024 10:00 AM AMBULATORY - MEDICINE [place] [facility] Aug 24, 2024 11:00 AM AMBULATORY - MEDICINE [place] [facility] Lab Results: +/- 30 days of the encounter This section includes the Chemistry and Hematology Lab Results on record with [place] for the patient. Radiology Reports and Pathology Reports are provided separately, in subsequent sections. Lab Results This section contains the Chemistry/Hematology Results that were resulted 30 days before or 30 daysafter the date of the Encounter. Date/Time Source Result Type Result - Unit Interpretation Reference Range Comment Mar 06, 2024 09:56 AM [facility] VITAMIN D (25-OH) Specimen Type: SERUM No comment entered. Ordering Provider: Sherrie CASTILLO Report Released Date/Time: Mar 06, 2024 09:36 AM Reporting Lab: [facility] [address] [facility] [address] Performing Lab: [facility] [address] VITAMIN D (25-OH) 20 ng/mL 20-50 Mar 06, 2024 09:56 AM [facility] IRON & TIBC PANEL Specimen Type: SERUM No comment entered. Ordering Provider: Sherrie CASTILLO Report Released Date/Time: Mar 06, 2024 09:36 AM Reporting Lab: [address] [address] Performing Lab: [address] [address] TIBC 364 ug/dL 204-475 IRON 36 ug/dL L 40-160 Transferrin Saturation 9.9 L 20.0-50.0 Mar 06, 2024 09:56 AM [facility] FERRITIN Specimen Type: SERUM No comment entered. Ordering Provider: Sherrie CASTILLO Report Released Date/Time: Mar 06, 2024 09:36 AM Reporting Lab: [address] [address] Performing Lab: [address] [address] FERRITIN 52 ng/mL 10-200 Mar 06, 2024 09:56 AM [facility] HEMOGLOBIN A1C PANEL Specimen Type: [...] Mar 06, 2024 09:36 AM Reporting Lab: [address] [address] Performing Lab: [address] [address] HEMOGLOBIN A1C 5.4 4.0-5.6 Mar 06, 2024 09:56 AM [facility] MICROALBUMIN CREATININE RATIO PANEL Specimen Type: URINE No comment entered. Ordering Provider: Sherrie CASTILLO Report Released Date/Time: Mar 06, 2024 09:36 AM Reporting Lab: [address] [address] Performing Lab: [address] [address] MICROALBUMIN/C REATININE RATIO 251.1 mg/g H 0-29.9 MICROALBUMIN,Q UANTITATIVE 11.2 mg/dL RR UNAVAIL CREATININE URINE 44.60 mg/dL Mar 06, 2024 09:56 AM [facility] BASIC METABOLIC PANEL (non-fasting) Specimen Type: SERUM No comment entered. Ordering Provider: Sherrie CASTILLO Report Released Date/Time: Mar 06, 2024 09:36 AM Reporting Lab: [address] [address] Performing Lab: [address] [address] UREA NITROGEN 28 mg/dL H 7-25 GLUCOSE 130 mg/dL H 65-100 SODIUM 142 mmol/L 135-145 POTASSIUM 4.8 mmol/L 3.5-5.0 CHLORIDE 97 mmol/L L 100-110 CO2 33 meq/L H 20-30 CREATININE, Serum 1.00 mg/dL 0.50-1.40 eGFR(CKD-EPI 2020) 63 mL/min >60 Mar 06, 2024 09:56 AM [facility] CBC AND DIFF (AUTO) Specimen Type: BLOOD No comment entered. Ordering Provider: Sherrie CASTILLO Report Released Date/Time: Mar 06, 2024 09:36 AM Reporting Lab: [facility] [address] [facility] [address] Performing Lab: [facility] [address] [facility] [address] WBC 12.33 10*3/uL H 4.50-11.00 RBC 3.92 [...] and tobacco- related health factors from the [place] facility where the Encounter took place. Current Smoking Status This section includes the most current smoking, or tobacco-related health factor, from the [place] facility where the Encounter took place. Date/Time Current Smoking Status Comment Rosana humphrey Mar 31, 2023 11:00 AM VA-TOBACCO FORMER USER [facility] Tobacco Use History This section includes a history of the smoking, or tobacco-related health factors, that were collected on or before the date of the Encounter. The data comes from the [place] facility where the Encounter took place. Date/Time Smoking Status/Tobac co Use Comment Facility Mar 31, 2023 11:00 AM VA-TOBACCO QUIT 1 TO < 5 YRS [place] [place] [facility] Mar 25, 2022 10:30 AM VA-TOBACCO NEVER USED [place] [facility] Mar 19, 2021 02:00 PM VA-TOBACCO FORMER USER [place] [facility] Mar 19, 2021 02:00 PM VA-TOBACCO QUIT < 1 YEAR [place] [facility] Sep 20, 2018 11:24 AM VA-TOBACCO USE DECLINED TO ANSWER [place] [facility] Oct 21, 2017 08:13 AM QUIT TOBACCO USE IN PAST YEAR [place] [facility] Dec 30, 2016 08:28 AM QUIT TOBACCO USE 1-7 YEARS AGO [place] [facility] [facility] Jun 04, 2016 08:43 AM QUIT TOBACCO USE 1-7 YEARS AGO [place] [facility] May 17, 2015 08:45 AM QUIT TOBACCO USE 1-7 YEARS AGO quit 2 years ago. [place] [facility] Jun 07, 2014 09:25 AM QUIT TOBACCO USE 1-7 YEARS AGO [place] [facility] [place] [facility] November 30, 2013 08:44 AM QUIT TOBACCO USE IN PAST YEAR [place] [facility] May 22, 2013 10:10 AM QUIT TOBACCO USE IN PAST YEAR [place] [facility] December 01, 2012 01:54 PM QUIT TOBACCO USE IN PAST YEAR [place] [facility] Jun 07, 2012 08:16 AM V1-PT DECLINES TOBACCO [facility]ESSATION [facility] Jun 07, 2012 08:16 AM V1-PT THINKING ABOUT QUIT TOBACCO USE [place] [facility] Jan 05, 2012 09:00 AM CURRENT SMOKER intermittenly [place] [facility] Jan 05, 2012 09:00 AM V1-PT DECLINES REF TO TOBACCO CESS PRGM [place] [facility] Jan 05, 2012 09:00 AM V1-PT DECLINES TOBACCO CESSATION MEDS [place] [facility] [place] [facility] Jan 05, 2012 09:00 AM V1-PT THINKING ABOUT QUIT TOBACCO USE [place] [facility] [place] [facility] Feb 17, 2011 09:52 AM V1-PT DECLINES TOBACCO CESSATION MEDS [place] [facility] Feb 17, 2011 09:52 AM V1-PT THINKING ABOUT QUIT TOBACCO USE [place] [facility] Aug 13, 2010 11:31 AM QUIT TOBACCO USE IN PAST YEAR [facility] [place] [facility] Feb 19, 2010 01:26 PM QUIT TOBACCO USE IN PAST YEAR [facility] [place] [facility] Sep 13, 2009 11:04 AM QUIT TOBACCO USE IN PAST YEAR [facility] [place] [facility] Feb 05, 2009 08:29 AM V1-PT DECLINES REF TO TOBACCO CESS [facility] [place] [facility] Feb 05, 2009 08:29 AM V1-PT DECLINES TOBACCO CESSATION [facility] [place] [facility] Feb 05, 2009 08:29 AM V1-PT THINKING ABOUT QUIT TOBACCO USE [facility] [place] [facility] Aug 22, 2008 09:04 AM QUIT TOBACCO USE IN PAST YEAR [place] [facility] Mar 12, 2008 10:40 AM V1-PT DECLINES REF TO TOBACCO CESS PRGM [place] [facility] [facility] Mar 12, 2008 10:40 AM V1-PT DECLINES TOBACCO CESSATION MEDS [place] [facility] Mar 12, 2008 10:40 AM V1-PT NOT INTERESTED IN QUIT TOBACCO USE [place] [facility] Mar 08, 2008 09:37 AM CURRENT SMOKER smokes one pack a day for about 10 years ago. [facility] [place] [facility] Encounter Notes: All associated encounter notes This section contains the clinical notes associated to the Encounter. Date/Time Encounter Note(s) Provider Source Mar 04, 2024 05:10 PM PHARMACY NOTE: LOCAL TITLE: V1 PHARMACY CUSTOMER CARE MEDICATION RENEWAL STANDARD TITLE: PHARMACY NOTE DATE OF NOTE: MAR 04, 2024@17:10 ENTRY DATE: MAR 04, 2024@17:10:47 AUTHOR: ARTURO GLEASON I EXP COSIGNER: URGENCY: STATUS: COMPLETED Date: Feb Division: [facility] referred by Pharmacy Call Center for medication renewal: Controlled substance Medications requested: [id number] OXYCODONE HCL 5MG TAB NOT SA Defer to specialty clinic To be picked up. Please review and renew if appropriate. *This note was generated by [facility] Pharm[facility] Customer Care. If you have any questions or need assistance, do not contact this author. Please refer all questions to your local, on-site pharmacy departments. /divya/ Arturo Gleason CPhT Certified Nursing Attendant, [place]/Pharmacy Customer Care Signed: 03/04/2024 17:11 Receipt Acknowledged By: 03/07/2024 14:02 /divya/ Gal Solorio MD STAFF PHYSICIAN ARTURO GLEASON I [place] [facility] [place] [facility]
--- OUTSIDE RECORDS SUMMARY | 2024-07-05 03:41 | XMS_ITS | Encounter Summary ---
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 [place] [facility] [place] Address [address] [place] [address] Care Team Providers Care Regulatory Lead Name Role Phone ROMANA CASTILLO Primary Care [...] Garcia's Name Patient's Relationship to Policy Garcia [facility] (MEDICAID) MEDICAID [place] DEPT [facility]UM[facility] May 14, 2009 [id number] SAMPLE,ROCCO MOORE PATIENT [facility] May 14, 2009 [id number] SAMPLE,ROCCO MOORE PATIENT MEDICAID MEDICAID [facility] Jul 26, 2018 MEDICAI D [id number] SAMPLE,ROCCO MOORE PATIENT MEDICARE (WNR) MEDICARE (M) PART A November 24, 2015 PART A [id number] SAMPLE,ROCCO MOORE PATIENT MEDICARE (WNR) MEDICARE (M) PART B November 24, 2015 PART B [id number] SAMPLE,ROCCO MOORE PATIENT Selected Encounter This section includes the information on record at [place] for the Encounter. Date/Time Encounter Type Encounter Description Reason Pro vider Source Mar 02, 2024 02:01 PM Outpatient Encounter ADMIN PAT ACTIVTIES (MASNONCT) [...] - MEDICINE [facility] Apr 03, 2024 11:30 AM AMBULATORY MEDICINE [facility] Apr 13, 2024 11:00 AM AMBULATORY - PSYCHIATRY [facility] Apr 13, 2024 02:00 PM AMBULATORY - MEDICINE [facility] Apr 13, 2024 03:00 PM AMBULATORY - MEDICINE [facility] May 02, 2024 11:00 AM AMBULATORY - MEDICINE [facility] May 15, 2024 11:30 AM AMBULATORY - PSYCHIATRY [facility] May 25, 2024 11:30 AM AMBULATORY - MEDICINE [facility] Jul 13, 2024 10:00 AM AMBULATORY - MEDICINE [facility] Aug 24, 2024 11:00 AM AMBULATORY - MEDICINE [facility] Active, Pending, and Scheduled Orders This section includes a listing of several types of active, pending, and scheduled orders, including clinic medications orders, diagnostic test orders, procedure orders and consult orders; where the start date of the order is 45 days before the date of the Encounter or 45 days after the date of theEncounter. The data comes from all [facility]. Test Date/Time Test Type Test Details Facility Name Jan 17, 2024 12:00 AM Laboratory - Chemistry Order BASIC METABOLIC PANEL (non-fasting) BLOOD (SST-SERUM) [facility] Jan 17, 2024 12:00 AM Laboratory - Chemistry Order LIPID PANEL, NON FASTING BLOOD (SST-SERUM) [facility] Jan 17, 2024 12:00 AM Laboratory - Chemistry Order LIVER FUNCTION BLOOD (SST-SERUM) [facility] Jan 17, 2024 12:00 AM Laboratory - Chemistry Order TSH BLOOD (SST-SERUM) [facility] Jan 17, 2024 12:00 AM Laboratory - Chemistry Order MICROALBUMIN CREATININE RATIO PANEL URINE (RANDOM) [facility] Lab Results: +/- 30 days of [...] Range Comment Mar 06, 2024 09:56 AM [facility] VITAMIN D (25-OH) Specimen Type: SERUM No comment entered. Ordering Provider: Sherrie CASTILLO Report Released Date/Time: Mar 06, 2024 09:36 AM Reporting Lab: [address] [address] Performing Lab: [address] [address] VITAMIN D (25-OH) 20 ng/mL 20-50 Mar 06, 2024 09:56 AM [facility] IRON & TIBC PANEL Specimen Type: SERUM No comment entered. Ordering Provider: Sherrie CASTILLO Report Released Date/Time: Mar 06, 2024 09:36 AM Reporting Lab: [address] [address] Performing Lab: [address] [place] [address] TIBC 364 ug/dL 204-475 IRON 36 ug/dL L 40-160 Transferrin Saturation 9.9 L 20.0-50.0 Mar 06, 2024 09:56 AM [facility] FERRITIN Specimen Type: SERUM No comment entered. Ordering Provider: Sherrie CASTILLO Report Released Date/Time: Mar 06, 2024 09:36 AM Reporting Lab: [address] [address] Performing Lab: [address] [address] FERRITIN 52 ng/mL 10-200 Mar 06, 2024 09:56 AM [facility] HEMOGLOBIN A1C PANEL Specimen Type: BLOOD [...] Mar 06, 2024 09:36 AM Reporting Lab: [address] [address] Performing Lab: [address] [address] HEMOGLOBIN A1C 5.4 4.0-5.6 Mar 06, 2024 09:56 AM [facility] MICROALBUMIN CREATININE RATIO PANEL Specimen Type: URINE No comment entered. Ordering Provider: Sherrie CASTILLO Report Released Date/Time: Mar 06, 2024 09:36 AM Reporting Lab: [address] [address] Performing Lab: [address] [address] MICROALBUMIN/C REATININE RATIO 251.1 mg/g H 0-29.9 MICROALBUMIN,Q UANTITATIVE 11.2 mg/dL RR UNAVAIL CREATININE URINE 44.60 mg/dL Mar 06, 2024 09:56 AM [facility] BASIC METABOLIC PANEL (non-fasting) Specimen Type: SERUM No comment entered. Ordering Provider: Sherrie CASTILLO Report Released Date/Time: Mar 06, 2024 09:36 AM Reporting Lab: [facility] [address] [address] Performing Lab: [facility] [address] [address] UREA NITROGEN 28 mg/dL H 7-25 GLUCOSE 130 mg/dL H 65-100 SODIUM 142 mmol/L 135-145 POTASSIUM 4.8 mmol/L 3.5-5.0 CHLORIDE 97 mmol/L L 100-110 CO2 33 meq/L H 20-30 CREATININE, Serum 1.00 mg/dL 0.50-1.40 eGFR(CKD-EPI 2020) 63 mL/min >60 Mar 06, 2024 09:56 AM [facility] CBC AND DIFF (AUTO) Specimen Type: BLOOD No comment entered. Ordering Provider: Sherrie CASTILLO Report Released Date/Time: Mar 06, 2024 09:36 AM Reporting Lab: [facility] [address] [address] [address] Performing Lab: [address] [address] WBC 12.33 10*3/uL H 4.50-11.00 RBC 3.92 [...] took place. Date/Time Current Smoking Status Comment [facility] Mar 31, 2023 11:00 AM VA-TOBACCO QUIT 1 TO < 5 YRS [facility] Tobacco Use History This section includes a history of the smoking, or tobacco-related health factors, that were collected on or before the date of the Encounter. The data comes from the [place] facility where the Encounter took place. Date/Time Smoking Status/Tobac co Use Comment Facility Mar 31, 2023 11:00 AM VA-TOBACCO QUIT 1 TO < 5 YRS [facility] Mar 25, 2022 10:30 AM VA-TOBACCO NEVER USED [facility] Mar 19, 2021 02:00 PM VA-TOBACCO FORMER USER [facility] Mar 19, 2021 02:00 PM VA-TOBACCO QUIT < 1 YEAR [facility] Sep 20, 2018 11:24 AM VA-TOBACCO USE DECLINED TO ANSWER [facility] Oct 21, 2017 08:13 AM QUIT TOBACCO USE IN PAST YEAR [facility] Dec 30, 2016 08:28 AM QUIT TOBACCO USE 1-7 YEARS AGO [facility] Jun 04, 2016 08:43 AM QUIT TOBACCO USE 1-7 YEARS AGO [facility] May 17, 2015 08:45 AM QUIT TOBACCO USE 1-7 YEARS AGO quit 2 years ago. [facility] Jun 07, 2014 09:25 AM QUIT TOBACCO USE 1-7 YEARS AGO [facility] November 30, 2013 08:44 AM QUIT TOBACCO USE IN PAST YEAR [facility] [place] May 22, 2013 10:10 AM QUIT TOBACCO USE IN PAST YEAR [facility] December 01, 2012 01:54 PM QUIT TOBACCO USE IN PAST YEAR [facility] [place] [facility] Jun 07, 2012 08:16 AM V1-PT DECLINES TOBACCO CESSATION [facility] [place] [facility] Jun 07, 2012 08:16 AM V1-PT THINKING ABOUT QUIT TOBACCO USE [facility] [place] [facility] Jan 05, 2012 09:00 AM CURRENT SMOKER intermittenly [facility] [place] [facility] Jan 05, 2012 09:00 AM V1-PT DECLINES REF TO TOBACCO CESS [facility] [place] Jan 05, 2012 09:00 AM V1-PT DECLINES TOBACCO CESSATION [facility] [place] Jan 05, 2012 09:00 AM V1-PT THINKING ABOUT QUIT TOBACCO USE [facility] Feb 17, 2011 09:52 AM V1-PT DECLINES TOBACCO CESSATION [facility] Feb 17, 2011 09:52 AM V1-PT THINKING ABOUT QUIT TOBACCO USE [facility] Aug 13, 2010 11:31 AM QUIT TOBACCO USE IN PAST YEAR [facility] [place] [facility] Feb 19, 2010 01:26 PM QUIT TOBACCO USE IN PAST YEAR [facility] [place] [facility] Sep 13, 2009 11:04 AM QUIT TOBACCO USE IN PAST YEAR [facility] Feb 05, 2009 08:29 AM V1-PT DECLINES REF TO TOBACCO CESS [facility] Feb 05, 2009 08:29 AM V1-PT DECLINES TOBACCO CESSATION MEDS [facility] Feb 05, 2009 08:29 AM V1-PT THINKING ABOUT QUIT TOBACCO USE [facility] Aug 22, 2008 09:04 AM QUIT TOBACCO USE IN PAST YEAR [facility] Mar 12, 2008 10:40 AM V1-PT DECLINES REF TO TOBACCO CESS [facility] Mar 12, 2008 10:40 [...] Encounter. Date/Time Encounter Note(s) Provider Source Mar 02, 2024 03:41 PM ADDENDUM: LOCAL TITLE: Addendum STANDARD TITLE: ADDENDUM DATE OF NOTE: MAR 02, 2024@15:41:25 ENTRY DATE: MAR 02, 2024@15:41:26 AUTHOR: FABIOLA ARTEAGA EXP COSIGNER: URGENCY: STATUS: COMPLETED TC to Vet at listed number. Vet was calling to make a [facility] hospital DC f/u. Was DC from [facility] on 02/11/24. Offered Vet Tuesday 03/06 at 9am and Vet accepted. Please book in appointment. /divya/ Fabiola Arteaga RN Primary Care Staff Nurse Signed: 03/02/2024 15:42 Receipt Acknowledged By: 03/02/2024 15:48 /divya/ ROSA WOLFE Advanced Certified Wellness Program Coordinator --- Original Document --- 03/02/24 CCC: SCHEDULING ADMINISTRATION: Patient Demographics Patient Name: REID QUEZADA Patient Primary Phone: [phone] Patient Primary Address: [place] [address] Patient : 1960 Patient Age: 64 Current Location: h Call Back Number: [phone] Caller/Recipient Relation to Patient: Self Scheduling Patient Expects Callback: No Administrative Administrative Note Reason: Outside Care Performed Administrative Note Comments: REQUESTING RETURN CALL RE: DISCHARGED OVER 1 WEEK - [facility] ELEVATED /es/ ZHENG COUTU ZHENG COUTU CDA/AMSA Signed: 03/02/2024 14:01 Receipt Acknowledged By: * AWAITING SIGNATURE * OLGA GREEN 03/02/2024 15:42 /divya/ Fabiola Arteaga RN Primary Care Staff Nurse 03/02/2024 ADDENDUM STATUS: COMPLETED Scheduled. /es/ ROSA WOLFE Advanced Certified Wellness Program Coordinator Signed: 03/02/2024 15:48 [facility]RIAN[facility]ABIOLA [facility] Mar 02, 2024 02:01 PM ADMINISTRATIVE NOT E: LOCAL TITLE: CCC: SCHEDULING ADMINISTRATION STANDARD TITLE: ADMINISTRATIVE NOTE DATE OF NOTE: MAR 02, 2024@14:01:21 ENTRY DATE: MAR 02, 2024@14:01:21 AUTHOR: ZHENG CHAIREZ COSIGNER: URGENCY: STATUS: COMPLETED CCC: SCHEDULING ADMINISTRATION Has ADDENDA Patient Demographics Patient Name: REID QUEZADA Patient Primary Phone: [phone] Patient Primary Address: [place] [place] [address] Patient : 1960 Patient Age: 64 Current Location: h Call Back Number: [phone] Caller/Recipient Relation to Patient: Self Scheduling Patient Expects Callback: No Administrative Administrative Note Reason: Outside Care Performed Administrative Note Comments: REQUESTING RETURN CALL RE: DISCHARGED OVER 1 WEEK - [facility] /es/ ZHENG COUTU ZHENG COUTU CDA/AMSA Signed: 03/02/2024 14:01 Receipt Acknowledged By: 03/03/2024 07:49 /divya/ OLGA GREEN, MSN, RN, CNL PRIMARY CARE TEAM NURSE 03/02/2024 15:42 /divya/ Fabiola Arteaga RN Primary Care Staff Nurse 03/02/2024 ADDENDUM STATUS: COMPLETED TC to Vet at listed number. Vet was calling to make a [facility] hospital DC f/u. Was DC from [facility] on 02/11/24. Offered Vet Tuesday 03/06 at 9am and Vet accepted. Please book in appointment. /isabella Arteaga RN Primary Care Staff Nurse Signed: 03/02/2024 15:42 Receipt Acknowledged By: 03/02/2024 15:48 /divya/ ROSA WOLFE Advanced Certified Wellness Program Coordinator 03/02/2024 ADDENDUM STATUS: COMPLETED Scheduled. /isabella WOLFE Advanced Certified Wellness Program Coordinator Signed: 03/02/2024 15:48 Z[facility]ENG CHAIREZ [facility]
--- OUTSIDE RECORDS SUMMARY | 2024-07-05 03:42 | XMS_ITS | Encounter Summary ---
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 Role Phone ROMANA CASTILLO Primary Care [...] Patient's Relationship to Policy Garcia [facility] (MEDICAID) [facility]ID [facility] May 14, 2009 [id number] SAMPLE,ROCCO MOORE PATIENT [facility] MEDICAID [facility] May 14, 2009 [id number] SAMPLE,ROCCO MOORE PATIENT MEDICAID MEDICAID [facility] ESTEF[facility] Jul 26, 2018 MEDICAI D [id number] SAMPLE,ROCCO MOORE PATIENT MEDICARE (WNR) MEDICARE (M) PART A November 24, 2015 PART A [id number] [phone] SAMPLE,ROCCO MOORE PATIENT MEDICARE (WNR) MEDICARE (M) PART B November 24, 2015 PART B [id number] [phone] SAMPLE,ROCCO MOORE PATIENT Selected Encounter This section includes the information on record at [place] for the Encounter. Date/Time Encounter Type Encounter Description Reason Provider Source Mar 06, 2024 09:00 AM OFFICE O/P EST MOD 30 MIN PRIMARY CARE/MEDICINE ICD-10-CM I10 Essential (primary) hypertension ROMANA CASTILLO E Encounter Template Text not used by [place] Assessments - Encounter Diagnoses This section includes the primary and secondary diagnoses documented for the Encounter. Date/Time Primary/Secondary Diagnosis Diagnosis Name Provider Source Mar 06, 2024 12:29 PM PRIMARY Essential (primary) hypertension ROMANA CASTILLO [place] [facility] [place] [facility] Mar 06, 2024 12:29 PM SECONDARY Anemia, unspecified ROMANA CASTILLO [place] [facility] [place] [facility] Mar 06, 2024 12:29 PM SECONDARY Cyst of kidney, acquired ROMANA CASTILLO [place] [facility] [place] [facility] Mar 06, 2024 12:29 PM SECONDARY Hyperkalemia ROMANA CASTILLO [place] [facility] [place] [facility] Plan of Treatment: Future Appointments (+ 6 months) and Future Tests (+/- 45 days) The Plan of Treatment section includes future care activities for the patient from [facility] [place] [facility] This section includes future appointments and future orders which are active, pending or scheduled. Future Appointments This section includes appointments that were scheduled to occur 6 months from the date of the Encounter, up to a maximum of 20 appointments. The data comes from all [place] treatment facilities. Appointment Date/Time Appointment Type Appointme nt Facility Name Apr 03, 2024 11:30 AM AMBULATORY - MEDICINE [place] [facility] [place] [facility] Apr 13, 2024 11:00 AM AMBULATORY - PSYCHIATRY [place] [facility] [place] [facility] Apr 13, 2024 02:00 PM AMBULATORY - MEDICINE [place] [facility] [place] [facility] Apr 13, 2024 03:00 PM AMBULATORY - MEDICINE [place] [facility] [place] [facility] May 02, 2024 11:00 AM AMBULATORY - MEDICINE [place] [facility] [place] [facility] May 15, 2024 11:30 AM AMBULATORY - PSYCHIATRY [place] [facility] [place] [facility] May 25, 2024 11:30 AM AMBULATORY - MEDICINE [facility] [place] [facility] Jul 13, 2024 10:00 AM AMBULATORY - MEDICINE [place] [facility] [place] [facility] Aug 24, 2024 11:00 AM AMBULATORY - [facility]ICINE [facility] Lab Results: +/- 30 days of the encounter This section includes the Chemistry and Hematology Lab Results on record with [place] for the patient. Radiology Reports and Pathology Reports are provided separately, in subsequent sections. Lab Results This section contains the Chemistry/Hematology Results that were resulted 30 days before or 30 daysafter the date of the Encounter. Date/Time Source Result Type Result - Unit Interpretation Reference Range Comment Mar 06, 2024 09:56 AM [facility] VITAMIN D (25-[place]) Specimen Type: SERUM No comment entered. Ordering Provider: Sherrie CASTILLO Report Released Date/Time: Mar 06, 2024 09:36 AM Reporting Lab: [facility] [address] [facility] [address] Performing Lab: [facility] [address] VITAMIN D (25-OH) 20 ng/mL 20-50 Mar 06, 2024 09:56 AM [facility] IRON & TIBC PANEL Specimen Type: SERUM No comment entered. Ordering Provider: Sherrie CASTILLO Report Released Date/Time: Mar 06, 2024 09:36 AM Reporting Lab: [facility] [address] [facility] [address] Performing Lab: [facility] [address] TIBC 364 ug/dL 204-475 IRON 36 ug/dL L 40-160 Transferrin Saturation 9.9 L 20.0-50.0 Mar 06, 2024 09:56 AM [facility] FERRITIN Specimen Type: SERUM No comment entered. Ordering Provider: Sherrie CASTILLO Report Released Date/Time: Mar 06, 2024 09:36 AM Reporting Lab: [address] [address] Performing Lab: [place] [address] FERRITIN 52 ng/mL 10-200 Mar 06, 2024 09:56 AM [facility] HEMOGLOBIN A1C PANEL Specimen Type: BLOOD [...] Mar 06, 2024 09:36 AM Reporting Lab: [address] [address] Performing Lab: [place] [address] HEMOGLOBIN A1C 5.4 4.0-5.6 Mar 06, 2024 09:56 AM [facility] MICROALBUMIN CREATININE RATIO PANEL Specimen Type: URINE No comment entered. Ordering Provider: Sherrie CASTILLO Report Released Date/Time: Mar 06, 2024 09:36 AM Reporting Lab: [address] [address] Performing Lab: [place] [id number] MICROALBUMIN/C REATININE RATIO 251.1 mg/g H 0-29.9 MICROALBUMIN,Q UANTITATIVE 11.2 mg/dL RR UNAVAIL CREATININE URINE 44.60 mg/dL Mar 06, 2024 09:56 AM [facility] BASIC METABOLIC PANEL (non-fasting) Specimen Type: SERUM No comment entered. Ordering Provider: Sherrie CASTILLO Report Released Date/Time: Mar 06, 2024 09:36 AM Reporting Lab: [place] [address] [address] [address] Performing Lab: [facility] [address] [address] UREA NITROGEN 28 mg/dL H 7-25 GLUCOSE 130 mg/dL H 65-100 SODIUM 142 mmol/L 135-145 POTASSIUM 4.8 mmol/L 3.5-5.0 CHLORIDE 97 mmol/L L 100-110 CO2 33 meq/L H 20-30 CREATININE, Serum 1.00 mg/dL 0.50-1.40 eGFR(CKD-EPI 2020) 63 mL/min >60 Mar 06, 2024 09:56 AM [facility] CBC AND DIFF (AUTO) Specimen Type: BLOOD No comment entered. Ordering Provider: Sherrie CASTILLO Report Released Date/Time: Mar 06, 2024 09:36 AM Reporting Lab: [address] [address] Performing Lab: [facility] [address] [address] WBC 12.33 10*3/uL H 4.50-11.00 RBC 3.92 [...] 0.0 0.0-0.0 NRBC, ABS 0.00 10*3/uL 0.00-0.00 Vital Signs: All taken on the encounter date This section contains inpatient and outpatient Vital Signs collected on the date of the Encounter. Date/Time Temperature Pulse Blood Pressure Respiratory Rate SP02 Pain Height Weight Body Mass Index Source Mar 06, 2024 09:26 AM 78 140/75 20 98 [place] [facility] [place] [facility] Social History: Smoking Status (Most current) [...] Current Smoking Status Comment Facil it Mar 06, 2024 09:00 AM VA-TOBACCO QUIT 15 YRS OR MORE [facility] Tobacco Use History This section includes a history of the smoking, or tobacco-related health factors, that were collected on or before the date of the Encounter. The data comes from the [place] facility where the Encounter took place. Date/Time Smoking Status/Tobac co Use Comment Facility Mar 06, 2024 09:00 AM VA-TOBACCO QUIT 15 YRS OR MORE [place] [facility] [place] [facility] Mar 31, 2023 11:00 AM VA-TOBACCO FORMER USER [place] [facility] [place] [facility] Mar 31, 2023 11:00 AM VA-TOBACCO QUIT 1 TO < 5 YRS [place] [facility] [place] [facility] Mar 25, 2022 10:30 AM VA-TOBACCO NEVER USED [place] [facility] [place] [facility] Mar 19, 2021 02:00 PM VA-TOBACCO FORMER USER [place] [facility] [place] [facility] Mar 19, 2021 02:00 PM VA-TOBACCO QUIT < 1 YEAR [place] [facility] [place] [facility] Sep 20, 2018 11:24 AM VA-TOBACCO USE DECLINED TO ANSWER [facility] [place] [facility] Oct 21, 2017 08:13 AM QUIT TOBACCO USE IN PAST YEAR [facility] [place] [facility] Dec 30, 2016 08:28 AM QUIT TOBACCO USE 1-7 YEARS AGO [facility] [place] [facility] Jun 04, 2016 08:43 AM QUIT TOBACCO USE 1-7 YEARS AGO [facility] May 17, 2015 08:45 AM QUIT TOBACCO USE 1-7 YEARS AGO quit 2 years ago. [facility] [place] [facility] Jun 07, 2014 09:25 AM QUIT TOBACCO USE 1-7 YEARS AGO [facility] [place] [facility] November 30, 2013 08:44 AM QUIT TOBACCO USE IN PAST YEAR [facility] May 22, 2013 10:10 AM QUIT TOBACCO USE IN PAST YEAR [facility] December 01, 2012 01:54 PM QUIT TOBACCO USE IN PAST YEAR [facility] [place] [facility] Jun 07, 2012 08:16 AM V1-PT DECLINES TOBACCO CESSATION MEDS [facility] Jun 07, 2012 08:16 AM V1-PT THINKING ABOUT QUIT TOBACCO USE [facility] Jan 05, 2012 09:00 AM CURRENT SMOKER intermittenly [facility] Jan 05, 2012 09:00 AM V1-PT DECLINES REF TO TOBACCO CESS PRGM [facility] [place] Jan 05, 2012 09:00 AM V1-PT DECLINES TOBACCO CESSATION MEDS [facility] [place] [facility] Jan 05, 2012 09:00 AM V1-PT THINKING ABOUT QUIT TOBACCO USE [facility] [place] [facility] Feb 17, 2011 09:52 AM V1-PT DECLINES TOBACCO CESSATION MEDS [place] [facility] [place] [facility] Feb 17, 2011 09:52 AM V1-PT THINKING ABOUT QUIT TOBACCO USE [facility] [place] [facility] Aug 13, 2010 11:31 AM QUIT TOBACCO USE IN PAST YEAR [facility] [place] [facility] Feb 19, 2010 01:26 PM QUIT TOBACCO USE IN PAST YEAR [facility] Sep 13, 2009 11:04 AM QUIT TOBACCO USE IN PAST YEAR [facility] Feb 05, 2009 08:29 AM V1-PT DECLINES REF TO TOBACCO CESS PRGM [facility] Feb 05, 2009 08:29 AM V1-PT DECLINES TOBACCO CESSATION MEDS [facility] Feb 05, 2009 08:29 AM V1-PT THINKING ABOUT QUIT TOBACCO USE [facility] Aug 22, 2008 09:04 AM QUIT TOBACCO USE IN PAST YEAR [facility] Mar 12, 2008 10:40 AM V1-PT DECLINES REF TO TOBACCO CESS PRGM [facility] Mar 12, 2008 10:40 AM V1-PT DECLINES TOBACCO CESSATION MEDS [facility] Mar 12, 2008 10:40 AM V1-PT NOT INTERESTED IN QUIT TOBACCO USE [facility] Mar 08, 2008 09:37 AM CURRENT SMOKER smokes one pack a day for about 10 years ago. [facility] Encounter Notes: All associated encounter notes This section contains the clinical notes associated to the Encounter. Date/Time Encounter Note(s) Provider Source Mar 06, 2024 09:30 AM PREVENTIVE MEDICINE NURSING NOTE: LOCAL TITLE: CLINICAL REMINDERS/NURSING STANDARD TITLE: PREVENTIVE MEDICINE NURSING NOTE DATE OF NOTE: MAR 06, 2024@09:30 ENTRY DATE: MAR 06, 2024@09:30:33 AUTHOR: FABIOLA ARTEAGA EXP COSIGNER: URGENCY: STATUS: COMPLETED Depression Screening: Perform PHQ-2 A PHQ-2 screen was performed. The score was 0 which is a negative screen for depression. Over the past two weeks, how often have you been bothered by the following problems? 1. Little interest or pleasure in doing things Not at all 2. Feeling down, depressed, or hopeless Not at all Tobacco Use Screening: The patient is a former tobacco user. The patient quit fifteen or more years ago. Alcohol Use Screen (AUDIT-C): Alcohol Screen: SCREEN FOR ALCOHOL (AUDIT-C) An alcohol screening test (AUDIT-C) was negative (score=0). 1. How often did you have a drink containing alcohol in the past year? Consider a drink to be a 12 ounce can or bottle of regular beer, 8 ounces of malt liquor, a 5 ounce glass of table wine, or a 1.5 ounce shot of liquor (like scotch, gin, or vodka). Never 2. How many drinks containing alcohol did you have on a typical day when you were drinking in the past year? Response not required due to responses to other questions. 3. How often did you have 4 or more drinks on one occasion in the past year? Response not required due to responses to other questions. /divya/ Fabiola Arteaga RN Primary Care Staff Nurse Signed: 03/06/2024 09:31 FABIOLA ARTEAGA [facility] Mar 06, 2024 08:45 AM PHYSICIAN NOTE: LOCAL TITLE: MD NOTE STANDARD TITLE: PHYSICIAN NOTE DATE OF NOTE: MAR 06, 2024@08:45 ENTRY DATE: MAR 06, 2024@08:46:03 AUTHOR: KATY CASTILLO EXP COSIGNER: URGENCY: STATUS: COMPLETED HISTORY OF PRESENT ILLNESS: REID DAMIEN, is a 64 yo WHITE FEMALE [place] who presents at the [place] [facility]. multiple problems HPI. janet has many chronic problems. she had eval at [facility] and she was foung to have potassium of 6.2 and this was treated and was reduced to 4.6. She continues on her BP meds for her HTN. she is struggling with chronic infxn in her right femur and will d/w her ortho provider. Janet has hx of left renal cyst and was asked to repeat study in 2024/ no change in her voiding habits, no fevers. She states she is in her usual state of health with multiple comorbidities. Long hx of anemia/ stable in past year. SH- nonsmoker Active problems - Computerized Problem List is the source for the followin. Limited mobility 2. Obesity 3. Haematoma of lower leg 4. Osteomyelitis of right femur 5. Myocardial infarction 6. Long-term current use of anticoagulant 7. Chronic pain 8. CCF - Congestive cardiac failure 9. AF- Atrial Fibrillation ([facility] [id number]) 10. Drug abuse 11. Extreme obesity with alveolar hypoventilation 12. Impaired fasting glucose 13. Pulmonary hypertension 14. COPD - Chronic obstructive pulmonary disease 15. Polycythemia vera 16. Anxiety disorder 17. Edema 18. Osteoarthritis of knee 19. Opioid dependence (SNOMED CT 07228129) 20. Microscopic hematuria 21. Tobacco dependence, continuous (SNOMED CT 189038679) 22. Sleep apnea (SNOMED CT 11007307) 23. Varicose Veins 24. Hysterectomy 25. Hypertension (SNOMED CT 84477322) 26. Gastroesophageal Reflux Disorder 27. Inflammatory bowel disease 28. Injury to the Muscles of the Hand (Group IX Function: Forearm Muscles) (ICD- HISTORY: PERIOD OF SERVICE - [employer] FROM Jul TO Oct COMBAT SERVICE INDICATED: No SERVICE CONNECTED % - NONE FOUND VITAL SIGNS: Temperature 97.9 F [36.6 C] (09/08/2023 13:03) Blood Pressure 145/76 (01/17/2024 15:15) Pulse 58 (01/17/2024 15:15) Respiration 18 (01/17/2024 15:15) Pain 6 (09/08/2023 13:03) BMI BMI: 48.2 Weight 280 lb [127.01 kg] (06/10/2023 07:34) Pulse Oximetry 96% (01/17/2024 15:15) Review of Systems: CONSTITUTIONAL: No fever, no loss of appetite ENT: No sore throat, no cough CARDIOVASCULAR: No chest pain, no palpitations RESPIRATORY: No SOB, no wheezing GASTROINTESTINAL: No abd pain, no N/V/D, no change in stool EXAMINATION General: this is a pleasant but chronically ill-appearing, obese woman in no obvious distress/seated in power wheelchair Mental Status: Alert and oriented x 3 Head: Normocephalic. Lungs: CTA. no crackles, no wheezing CV: RRR. No murmur Psych: Normal mood and affect. Normal judgment. DATA REVIEW >> MEDICATIONS Reviewed Today (VA & Non VA) ALLERGIES: MORPHINE, GABAPENTIN, DULOXETINE Active Outpatient Medications (including Supplies): Issue Date Status Last Fill Active Outpatient Medications Refills Expiration 1) ATORVASTATIN CALCIUM 80MG TAB Qty: 90 ACTIVE Issu:08-26-23 for 90 days Sig: TAKE ONE TABLET BY Refills: 0 Last:02-13-24 MOUTH ONCE DAILY FOR CHOLESTEROL Expr:08-26-24 2) BUPRENORPHINE HCL 2MG SUBLINGUAL TAB ACTIVE Issu:11-17-23 Qty: 240 for 30 days Sig: DISSOLVE Refills: 2 Last:02-17-24 TWO TABLETS UNDER THE TONGUE FOUR Expr:05-19-24 TIMES A DAY 3) CLONAZEPAM 0.5MG TAB Qty: 120 for 30 ACTIVE Issu:02-14-24 days Sig: TAKE TWO TABLETS BY MOUTH Refills: 2 Last:03-06-24 ONCE DAILY AND TAKE ONE TABLET TWICE Expr:08-16-24 DAILY NEEDED 4) DILTIAZEM (EQV-TIAZAC) 240MG 24HR CAP ACTIVE Issu:09-08-23 Qty: 90 for 90 days Sig: TAKE ONE Refills: 2 Last:02-03-24 CAPSULE BY MOUTH ONCE DAILY Expr:09-08-24 5) LISINOPRIL 30MG TAB Qty: 180 for 90 ACTIVE Issu:01-17-24 days Sig: TAKE TWO TABLETS BY MOUTH Refills: 3 Last:01-17-24 ONCE DAILY TO CONTROL BLOOD PRESSURE Expr:01-17-25 6) TEMAZEPAM 30MG CAP Qty: 30 for 30 days ACTIVE Issu:01-03-24 Sig: TAKE ONE CAPSULE BY MOUTH AT Refills: 3 Last:01-31-24 BEDTIME NEEDED FOR SLEEP Expr:07-05-24 7) THEOPHYLLINE 400MG 24HR SA TAB Qty: 90 [...] Sig: ACTIVE 0.5ML INTRAMUSCULARLY NOW 6) Non-VA [id number]/VILANTERO L25MCG ACTIVE 30D INH Si INHALATION BY MOUTH ONCE DAILY 13 Total Medications >> LABS REVIEWED TODAY: CHEM [...] Only: [facility] Video Connect Capable DUE NOW Cervical Cancer Screening Dec 24 Follow Up Colonoscopy December 14 Depression Screening Mar 31 Home Telehealth (CCHT) Referral DUE NOW Lipid Screening DUE NOW Mental Health Treatment Plan DUE NOW Opioid Drug Screening Apr 05 Tobacco Use Screening Mar 31 Mammogram Screening Dec 24 Medication Reconciliation DUE NOW Alcohol Use Screen (AUDIT-C) Mar 31 HTN Assess for Elevated BP>=140/90 DUE NOW Offer Overdose Education and Naloxone DUE NOW Herpes Zoster (Shingles) Vaccine DUE NOW RHS Screen DUE NOW Eye Care At-Risk Screen DUE NOW Hepatitis A Vaccine for High Risk DUE NOW (Optional) Whole Health Documentation DUE NOW ASSESSMENT/PLAN: 1. HTN 2. anemia 3. renal cyst 4. hx of hyperkalemia and per [facility] records-vet has CKD Plan 1. continue current BP meds/ vet will monitor at home 2. check CBC today with iron studies 3. vet to plan to do renal U/S in Aug 2024/ she wants to plan this w/ her community PCP 4. check lytes today and vet will ask her community PCP for referral to nephrology 5. f/u w/ [facility] PCP in 4 mos LAB ORDERS FOR NEXT APPT. spent in [...] this [place] (local) and dispensed from another VA or [facility] facility (remote) as well as inpatient orders [...] provider. /divya/ ROMANA CASTILLO MD PHYSICIAN Signed: 03/06/2024 12:29 FAYE CASTILLO [place] [facility]
--- OUTSIDE RECORDS SUMMARY | 2024-07-05 03:42 | XMS_ITS | Encounter Summary ---
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 [facility] [place] Address [address] [place] [id number] Care Team Providers Care Programming Manager Name Role Phone ROMANA CASTILLO Primary [...] Garcia's Name Patient's Relationship to Policy Garcia [facility] (MEDICAID) [facility] May 14, 2009 [id number] SAMPLE,ROCCO MOORE PATIENT [facility] MEDICAID [facility] May 14, 2009 [id number] SAMPLE,ROCCO MOORE PATIENT MEDICAID MEDICAID [facility] ESTEFANY Jul 26, 2018 MEDICAI D [id number] SAMPLE,ROCCO MOORE PATIENT MEDICARE (WNR) MEDICARE (M) PART A November 24, 2015 PART A [id number] SAMPLE,ROCCO MOORE PATIENT MEDICARE (WNR) MEDICARE (M) PART B November 24, 2015 PART B [id number] ROCCO QUEZADA PATIENT Selected Encounter This section includes the information on record at [place] for the Encounter. Date/Time Encounter Type Encounter Description Reason Pro vider Source Feb 09, 2024 12:00 AM Outpatient Encounter EVENT (HISTORICAL) IHE [...] 20 appointments. The data comes from all [facility] Appointment Date/Time Appointment Type Appointme nt Facility Name Feb 14, 2024 11:00 AM AMBULATORY - [place]ATRY [place] [facility] [place] [facility] Mar 06, 2024 09:00 AM AMBULATORY - MEDICINE [facility] [place] [facility] Apr 03, 2024 11:30 AM AMBULATORY - MEDICINE [place] [facility] [place] [facility] Apr 13, 2024 11:00 AM AMBULATORY PSYCHIATRY [place] [facility] [place] [facility] Apr 13, 2024 02:00 PM AMBULATORY - MEDICINE [facility] [place] [facility] Apr 13, 2024 03:00 PM AMBULATORY MEDICINE [place] [facility] [place] [facility] May 02, 2024 11:00 AM AMBULATORY - MEDICINE [place] [facility] [place] [facility] May 15, 2024 11:30 AM AMBULATORY PSYCHIATRY [place] [facility] [place] [place] [facility] May 25, 2024 11:30 AM AMBULATORY - MEDICINE [place] [facility] [place] [facility] Jul 13, 2024 10:00 AM AMBULATORY MEDICINE [facility] [place] [facility] Active, Pending, and Scheduled Orders This section includes a listing of several types of active, pending, and scheduled orders, including clinic medications orders, diagnostic test orders, procedure orders and consult orders; where the start date of the order is 45 days before the date of the Encounter or 45 days after the date of theEncounter. The data comes from all [facility] Test Date/Time Test Type Test Details Facility Name Jan 17, 2024 12:00 AM Laboratory - Chemistry Order BASIC METABOLIC PANEL (non-fasting) BLOOD (SST[facility]SERUM) [facility] Jan 17, 2024 12:00 AM Laboratory - Chemistry Order LIPID PANEL, NON FASTING BLOOD (SST-SERUM) [facility] Jan 17, 2024 12:00 AM Laboratory - Chemistry Order TSH BLOOD (SST-SERUM) [facility] Jan 17, 2024 12:00 AM Laboratory - Chemistry Order LIVER FUNCTION BLOOD (SST-SERUM) [facility] Jan 17, 2024 12:00 AM Laboratory - Chemistry Order MICROALBUMIN CREATININE RATIO PANEL URINE (RANDOM) [facility] Lab Results: +/- 30 days of [...] Range Comment Mar 06, 2024 09:56 AM [facility] VITAMIN D (25-OH) Specimen Type: SERUM No comment entered. Ordering Provider: Sherrie CASTILLO Report Released Date/Time: Mar 06, 2024 09:36 AM Reporting Lab: [address] [address] Performing Lab: [address] [address] VITAMIN D (25-OH) 20 ng/mL 20-50 Mar 06, 2024 09:56 AM [facility] IRON & TIBC PANEL Specimen Type: SERUM No comment entered. Ordering Provider: Sherrie CASTILLO Report Released Date/Time: Mar 06, 2024 09:36 AM Reporting Lab: [address] [address] Performing Lab: [address] [address] TIBC 364 ug/dL 204-475 IRON 36 ug/dL L 40-160 Transferrin Saturation 9.9 L 20.0-50.0 Mar 06, 2024 09:56 AM [facility] FERRITIN Specimen Type: SERUM No comment entered. Ordering Provider: Sherrie CASTILLO Report Released Date/Time: Mar 06, 2024 09:36 AM Reporting Lab: [facility] [address] [facility] [address] Performing Lab: [facility] [address] FERRITIN 52 ng/mL 10-200 Mar 06, 2024 09:56 AM [facility] HEMOGLOBIN A1C PANEL Specimen Type: BLOOD [...] Mar 06, 2024 09:36 AM Reporting Lab: [facility] [address] [facility] [address] Performing Lab: [address] [address] HEMOGLOBIN A1C 5.4 4.0-5.6 Mar 06, 2024 09:56 AM [facility] MICROALBUMIN CREATININE RATIO PANEL Specimen Type: URINE No comment entered. Ordering Provider: Sherrie CASTILLO Report Released Date/Time: Mar 06, 2024 09:36 AM Reporting Lab: [facility] [address] [facility] [address] Performing Lab: [facility] [address] MICROALBUMIN/C REATININE RATIO 251.1 mg/g H 0-29.9 MICROALBUMIN,Q UANTITATIVE 11.2 mg/dL RR UNAVAIL CREATININE URINE 44.60 mg/dL Mar 06, 2024 09:56 AM [facility] BASIC METABOLIC PANEL (non-fasting) Specimen Type: SERUM No comment entered. Ordering Provider: Sherrie CASTILLO Report Released Date/Time: Mar 06, 2024 09:36 AM Reporting Lab: [facility] [address] [facility] [address] Performing Lab: [address] [address] UREA NITROGEN 28 mg/dL H 7-25 GLUCOSE 130 mg/dL H 65-100 SODIUM 142 mmol/L 135-145 POTASSIUM 4.8 mmol/L 3.5-5.0 CHLORIDE 97 mmol/L L 100-110 CO2 33 meq/L H 20-30 CREATININE, Serum 1.00 mg/dL 0.50-1.40 eGFR(CKD-EPI 2020) 63 mL/min >60 Mar 06, 2024 09:56 AM [facility] CBC AND DIFF (AUTO) Specimen Type: BLOOD No comment entered. Ordering Provider: Sherrie CASTILLO Report Released Date/Time: Mar 06, 2024 09:36 AM Reporting Lab: [facility] [address] [facility] [address] Performing Lab: [address] [address] WBC 12.33 10*3/uL H 4.50-11.00 RBC 3.92 [...] took place. Date/Time Current Smoking Status Comment [facility] Mar 31, 2023 11:00 AM VA-TOBACCO FORMER USER [facility] Tobacco Use History This section includes a history of the smoking, or tobacco-related health factors, that were collected on or before the date of the Encounter. The data comes from the [place] facility where the Encounter took place. Date/Time Smoking Status/Tobac co Use Comment Facility Mar 31, 2023 11:00 AM VA-TOBACCO QUIT 1 TO < 5 YRS [facility] [place] [facility] Mar 25, 2022 10:30 AM VA-TOBACCO NEVER USED [facility] [place] [facility] Mar 19, 2021 02:00 PM VA-TOBACCO FORMER USER [facility] Mar 19, 2021 02:00 PM VA-TOBACCO QUIT < 1 YEAR [facility] [place] [facility] Sep 20, 2018 11:24 AM VA-TOBACCO USE DECLINED TO ANSWER [facility] Oct 21, 2017 08:13 AM QUIT TOBACCO USE [facility]ST [facility] [place] [facility] Dec 30, 2016 08:28 AM QUIT TOBACCO USE 1-7 YEARS AGO [place] [facility] [place] [facility] Jun 04, 2016 08:43 AM QUIT TOBACCO USE 1-7 YEARS AGO [place] [facility] [place] [facility] May 17, 2015 08:45 AM QUIT TOBACCO USE 1-7 YEARS AGO quit 2 years ago. [facility] [place] [facility] Jun 07, 2014 09:25 AM QUIT TOBACCO USE 1-7 YEARS AGO [place] [facility] [place] [facility] November 30, 2013 08:44 AM QUIT TOBACCO USE IN PAST YEAR [place] [facility] [place] [facility] May 22, 2013 10:10 AM QUIT TOBACCO USE IN PAST YEAR [place] [facility] [place] [facility] December 01, 2012 01:54 PM QUIT TOBACCO USE IN PAST YEAR [facility] [place] [facility] Jun 07, 2012 08:16 AM V1-PT DECLINES TOBACCO CESSATION MEDS [facility] [place] [facility] Jun 07, 2012 08:16 AM V1-PT THINKING ABOUT QUIT TOBACCO USE [facility] [place] [place] [facility] Jan 05, 2012 09:00 AM CURRENT SMOKER intermittenly [facility] [place] [facility] Jan 05, 2012 09:00 AM V1-PT DECLINES REF TO TOBACCO CESS PRGM [facility] [place] [facility] Jan 05, 2012 09:00 AM V1-PT DECLINES TOBACCO CESSATION MEDS [facility] [place] [facility] Jan 05, 2012 09:00 AM V1-PT THINKING ABOUT QUIT TOBACCO USE [facility] [place] [facility] Feb 17, 2011 09:52 AM V1-PT DECLINES TOBACCO CESSATION MEDS [facility] [place] [facility] Feb 17, 2011 09:52 AM V1-PT THINKING ABOUT QUIT TOBACCO USE [facility] [place] [facility] Aug 13, 2010 11:31 AM QUIT TOBACCO USE IN PAST YEAR [facility] [place] [facility] Feb 19, 2010 01:26 PM QUIT TOBACCO USE IN PAST YEAR [facility] [place] [facility] Sep 13, 2009 11:04 AM QUIT TOBACCO USE IN PAST YEAR [facility] Feb 05, 2009 08:29 AM V1-PT DECLINES REF TO TOBACCO CESS PRGM [facility] Feb 05, 2009 08:29 AM V1-PT DECLINES TOBACCO CESSATION MEDS [facility] Feb 05, 2009 08:29 AM V1-PT THINKING ABOUT QUIT TOBACCO USE [facility] Aug 22, 2008 09:04 AM QUIT TOBACCO USE IN PAST YEAR [facility] Mar 12, 2008 10:40 AM V1-PT DECLINES REF TO TOBACCO CESS PRGM [facility] Mar 12, 2008 10:40 AM V1-PT DECLINES TOBACCO CESSATION MEDS [facility] Mar 12, 2008 10:40 AM V1-PT NOT INTERESTED IN QUIT TOBACCO USE [facility] Mar 08, 2008 09:37 AM CURRENT SMOKER smokes one pack a day for about 10 years ago. [facility] Encounter Notes: All associated encounter notes This section contains the clinical notes associated to the Encounter. Date/Time Encounter Note(s) Provider Source Feb 09, 2024 12:00 AM NONVA NOTE: LOCAL TITLE: NON-VA HOSPITALIZATIONS/ER STANDARD TITLE: NONVA NOTE DATE OF NOTE: FEB 09, 2024 ENTRY DATE: MAR 08, 2024@07:09:18 AUTHOR: SURAJ MARTIN EXP COSIGNER: URGENCY: STATUS: COMPLETED VistA Imaging - Scanned Document SCANNED DOCUMENT SIGNATURE NOT REQUIRED Electronically Filed: 03/08/2024 by: SURAJ LUNA [facility]
--- OUTSIDE RECORDS SUMMARY | 2024-07-05 03:45 | XMS_ITS | Encounter Summary ---
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 [place] [facility] [place] Address [address] [place] [id number] Care Team Providers Care Regional Sales Leader Name Role Phone ROMANA CASTILLO Primary [...] Policy Garcia [facility] (MEDICAID) [place]ICAID [place] DEPT HUMAN [facility] May 14, 2009 [id number] SAMPLE,ROCCO MOORE PATIENT [facility] May 14, 2009 [id number] SAMPLE,ROCCO MOORE PATIENT MEDICAID MEDICAID [facility] STAND ESTEFANY Jul 26, 2018 MEDICAI D [id number] SAMPLE,ROCCO MOORE PATIENT MEDICARE (WNR) MEDICARE (M) PART A November 24, 2015 PART A [id number] SAMPLE,ROCCO MOORE PATIENT MEDICARE (WNR) MEDICARE (M) PART B November 24, 2015 PART B [id number] SAMPLE,ROCCO MOORE PATIENT Selected Encounter This section includes the information on record at [place] for the Encounter. Date/Time Encounter Type Encounter Description Reason Provider Source Mar 30, 2024 11:27 AM QNHP OL DIG ASSMT&MGMT 5-10 PAIN CLINIC ICD-10-CM G89.4 Chronic pain syndrome URBANO BOYLE IHE Encounter Template Text not used by [facility] Assessments - Encounter Diagnoses This section includes the primary and secondary diagnoses documented for the Encounter. Date/Time Primary/Secondary Diagnosis Diagnosis Name Provider Source Mar 30, 2024 11:51 AM PRIMARY Chronic pain syndrome URBANO BOYLE [facility] [place] [facility] Plan of Treatment: Future Appointments (+ 6 months) and Future Tests (+/- 45 days) The Plan of Treatment section includes future care activities for the patient from all [place] treatmentfacilities. This section includes future appointments and future orders which are active, pending or scheduled. Future Appointments This section includes appointments that were scheduled to occur 6 months from the date of the Encounter, up to a maximum of 20 appointments. The data comes from all [place] treatment facilities. Appointment Date/Time Appointment Type Appointme nt Facility Name Apr 03, 2024 11:30 AM AMBULATORY - MEDICINE CO [facility] [place] [facility] Apr 13, 2024 11:00 AM AMBULATORY - PSYCHIATRY [facility] [place] [facility] Apr 13, 2024 02:00 PM AMBULATORY - MEDICINE CO [facility] [place] [facility] Apr 13, 2024 03:00 PM AMBULATORY - MEDICINE CO [facility] [place] [facility] May 02, 2024 11:00 AM AMBULATORY - MEDICINE CO [facility] [place] [facility] May 15, 2024 11:30 AM AMBULATORY - PSYCHIATRY [facility] [place] [facility] May 25, 2024 11:30 AM AMBULATORY - MEDICINE CO [facility] [place] [facility] Jul 13, 2024 10:00 AM AMBULATORY - MEDICINE CO [facility] [place] [facility] Aug 24, 2024 11:00 AM AMBULATORY - MEDICINE CO [facility] [place] [facility] Lab Results: +/- 30 days of the encounter This section includes the Chemistry and Hematology Lab Results on record with [place] for the patient. Radiology Reports and Pathology Reports are provided separately, in subsequent sections. Lab Results This section contains the Chemistry/Hematology Results that were resulted 30 days before or 30 daysafter the date of the Encounter. Date/Time Source Result Type Result - Unit Interpretation Reference Range Comment Mar 06, 2024 09:56 AM [facility] VITAMIN D (25-OH) Specimen Type: SERUM No comment entered. Ordering Provider: Sherrie CASTILLO Report Released Date/Time: Mar 06, 2024 09:36 AM Reporting Lab: [facility] [place] [address] [address] Performing Lab: [facility] [address] [address] VITAMIN D (25-OH) 20 ng/mL 20-50 Mar 06, 2024 09:56 AM [facility] IRON & TIBC PANEL Specimen Type: SERUM No comment entered. Ordering Provider: Sherrie CASTILLO Report Released Date/Time: Mar 06, 2024 09:36 AM Reporting Lab: [facility] [address] [facility] [address] Performing Lab: [facility] [address] [address] TIBC 364 ug/dL 204-475 IRON 36 ug/dL L 40-160 Transferrin Saturation 9.9 L 20.0-50.0 Mar 06, 2024 09:56 AM [facility] FERRITIN Specimen Type: SERUM No comment entered. Ordering Provider: Sherrie CASTILLO Report Released Date/Time: Mar 06, 2024 09:36 AM Reporting Lab: [facility] [address] [address] Performing Lab: [facility]RN [facility] [address] [address] FERRITIN 52 ng/mL 10-200 Mar 06, 2024 09:56 AM [facility] HEMOGLOBIN A1C PANEL Specimen Type: BLOOD Comment: [...] Mar 06, 2024 09:36 AM Reporting Lab: [address] [address] Performing Lab: [address] [address] HEMOGLOBIN A1C 5.4 4.0-5.6 Mar 06, 2024 09:56 AM [facility] MICROALBUMIN CREATININE RATIO PANEL Specimen Type: URINE No comment entered. Ordering Provider: Sherrie CASTILLO Report Released Date/Time: Mar 06, 2024 09:36 AM Reporting Lab: [address] [address] Performing Lab: [address] [address] MICROALBUMIN/C REATININE RATIO 251.1 mg/g H 0-29.9 MICROALBUMIN,Q UANTITATIVE 11.2 mg/dL RR UNAVAIL CREATININE URINE 44.60 mg/dL Mar 06, 2024 09:56 AM [facility] BASIC METABOLIC PANEL (non-fasting) Specimen Type: SERUM No comment entered. Ordering Provider: Sherrie CASTILLO Report Released Date/Time: Mar 06, 2024 09:36 AM Reporting Lab: [address] [address] Performing Lab: [address] [address] UREA NITROGEN 28 mg/dL H 7-25 GLUCOSE 130 mg/dL H 65-100 SODIUM 142 mmol/L 135-145 POTASSIUM 4.8 mmol/L 3.5-5.0 CHLORIDE 97 mmol/L L 100-110 CO2 33 meq/L H 20-30 CREATININE, Serum 1.00 mg/dL 0.50-1.40 eGFR(CKD-EPI 2020) 63 mL/min >60 Mar 06, 2024 09:56 AM [facility] CBC AND DIFF (AUTO) Specimen Type: BLOOD No comment entered. Ordering Provider: Sherrie CASTILLO Report Released Date/Time: Mar 06, 2024 09:36 AM Reporting Lab: [facility] [address] [facility] [address] Performing Lab: [facility] [address] [facility] [address] WBC 12.33 10*3/uL H 4.50-11.00 RBC 3.92 [...] and tobacco- related health factors from the [place] facility where the Encounter took place. Current Smoking Status This section includes the most current smoking, or tobacco-related health factor, from the [place] facility where the Encounter took place. Date/Time Current Smoking Status Comment Facil [facility] Mar 06, 2024 09:00 AM VA-TOBACCO FORMER USER [facility] [place] [facility] Tobacco Use History This section includes a history of the smoking, or tobacco-related health factors, that were collected on or before the date of the Encounter. The data comes from the [place] facility where the Encounter took place. Date/Time Smoking Status/Tobac co Use Comment Facility Mar 06, 2024 09:00 AM VA-TOBACCO QUIT 15 YRS OR MORE [facility] [place] [facility] Mar 31, 2023 11:00 AM VA-TOBACCO FORMER USER [facility] [place] [facility] Mar 31, 2023 11:00 AM VA-TOBACCO QUIT 1 TO < 5 YRS [facility] [place] [facility] Mar 25, 2022 10:30 AM VA-TOBACCO NEVER USED [facility] [place] [facility] Mar 19, 2021 02:00 PM VA-TOBACCO FORMER USER [facility] [place] [facility] Mar 19, 2021 02:00 PM VA-TOBACCO QUIT < 1 YEAR [facility] [place] [facility] Sep 20, 2018 11:24 AM VA-TOBACCO USE DECLINED TO ANSWER [facility] [place] [facility] Oct 21, 2017 08:13 AM QUIT TOBACCO USE IN PAST YEAR [facility] [place] [facility] Dec 30, 2016 08:28 AM QUIT TOBACCO USE 1-7 YEARS AGO [facility] [place] [facility] Jun 04, 2016 08:43 AM QUIT TOBACCO USE 1-7 YEARS AGO [facility] [place] [facility] May 17, 2015 08:45 AM QUIT TOBACCO USE 1-7 YEARS AGO quit 2 years ago. [facility] [place] [facility] Jun 07, 2014 09:25 AM QUIT TOBACCO USE 1-7 YEARS AGO [facility] [place] [facility] November 30, 2013 08:44 AM QUIT TOBACCO USE IN PAST YEAR [facility] [place] [facility] May 22, 2013 10:10 AM QUIT TOBACCO USE IN PAST YEAR [facility] [place] [facility] December 01, 2012 01:54 PM QUIT TOBACCO USE IN PAST YEAR [facility] [place] [facility] Jun 07, 2012 08:16 AM V1-PT DECLINES TOBACCO CESSATION MEDS [facility] [place] [facility] Jun 07, 2012 08:16 AM V1-PT THINKING ABOUT QUIT TOBACCO USE [facility] [place] [facility] Jan 05, 2012 09:00 AM CURRENT SMOKER intermittenly [facility] [place] [facility] Jan 05, 2012 09:00 AM V1-PT DECLINES REF TO TOBACCO CESS PRGM [facility] [place] [facility] Jan 05, 2012 09:00 AM V1-PT DECLINES TOBACCO CESSATION MEDS [facility] [place] [facility] Jan 05, 2012 09:00 AM V1-PT THINKING ABOUT QUIT TOBACCO USE [facility] [place] [facility] Feb 17, 2011 09:52 AM V1-PT DECLINES TOBACCO CESSATION MEDS [facility] [place] [facility] Feb 17, 2011 09:52 AM V1-PT THINKING ABOUT QUIT TOBACCO USE [facility] [place] [facility] Aug 13, 2010 11:31 AM QUIT TOBACCO USE IN PAST YEAR [facility] [place] [facility] Feb 19, 2010 01:26 PM QUIT TOBACCO USE IN PAST YEAR [facility] [place] [facility] Sep 13, 2009 11:04 AM QUIT TOBACCO USE IN PAST YEAR [facility] [place] [facility] Feb 05, 2009 08:29 AM V1-PT DECLINES REF TO TOBACCO CESS PRGM [facility] [place] [facility] Feb 05, 2009 08:29 AM V1-PT DECLINES TOBACCO CESSATION MEDS [facility] [place] [facility] Feb 05, 2009 08:29 AM V1-PT THINKING ABOUT QUIT TOBACCO USE [facility] [place] [facility] Aug 22, 2008 09:04 AM QUIT TOBACCO USE IN PAST YEAR [facility] [place] [facility] Mar 12, 2008 10:40 AM V1-PT DECLINES [facility] Mar 12, 2008 10:40 AM V1-PT DECLINES TOBACCO CESSATION MEDS [facility] Mar 12, 2008 10:40 AM V1-PT NOT INTERESTED IN QUIT TOBACCO USE [facility] Mar 08, 2008 09:37 AM CURRENT SMOKER smokes one pack a day for about 10 years ago. [facility] Encounter Notes: All associated encounter notes This section contains the clinical notes associated to the Encounter. Date/Time Encounter Note(s) Provider Source Mar 30, 2024 11:52 AM PAIN MEDICATION MG T NOTE: LOCAL TITLE: OPIOID/CONTROLLED SUBSTANCE NOTE STANDARD TITLE: PAIN MEDICATION MGT NOTE DATE OF NOTE: MAR 30, 2024@11:52 ENTRY DATE: MAR 30, 2024@11:52:54 AUTHOR: URBANO BOYLE EXP COSIGNER: URGENCY: STATUS: COMPLETED OPIOID/CONTROLLED SUBSTANCE NOTE Controlled Substance Renewal Request REQUESTED MEDICATIONS: Oxycodone 5mg PHARMACY PICK-UP A valid consent for Long-Term Opioid therapy for Pain is required for opioid duration of 90 days or greater. CONSENT FOR LONG-TERM OPIOIDS FOR PAIN Jan 30, 2022 Prescription Drug Monitoring Program (PDMP): A PDMP note is required at every new prescription for a controlled substance. PDMP HISTORY 1 YEAR Info Disclosed: Patient Demographics Purpose: Accessing Prescription Drug Monitoring Program (PDMP) databases for review of controlled substances prescribed outside of the [place], and any additional information that may become available, as an important component of standard clinical care and in accordance with [facility] policy 04/21/23 10:23 Gal Solorio MD PDMP [facility] [place] 06/24/23 11:32 Gal Solorio MD PDMP [facility] [place] 06/30/23 08:25 Mateo Scott MD, MD PDMP [facility] [place] 07/01/23 14:06 Mateo Scott MD, MD PDMP [facility] [place] 07/27/23 14:15 Gal Solorio MD PDMP [facility] [place] 08/05/23 16:12 Mateo Scott MD, MD PDMP [facility] [place] 08/18/23 12:39 Gal Solorio MD PDMP [facility] [place] 09/08/23 15:27 Urbano Boyle PDMP [facility] [place] 09/21/23 13:55 Mateo Scott MD, MD PDMP [facility] [place] 09/22/23 13:16 Gal Solorio MD PDMP [facility] [place] 10/06/23 10:21 Gal Solorio MD PDMP [facility] [place] 10/07/23 07:56 Mateo Scott MD, MD PDMP [facility] [place] 11/04/23 11:04 Gal Solorio MD PDMP [facility] [place] 11/17/23 09:41 Gal Solorio MD PDMP [facility] [place] 12/07/23 15:50 Gal Solorio MD PDMP [facility] [place] 12/16/23 10:20 Mateo Scott MD, MD PDMP [facility] [place] 12/27/23 07:59 Mateo Scott MD, MD PDMP [facility] [place] 12/31/23 08:08 Mateo Scott MD, MD PDMP [facility] [place] 01/03/24 09:30 Mateo Scott MD, MD PDMP [facility] [place] 01/04/24 09:19 Gal Solorio MD PDMP [facility] [place] 01/26/24 10:04 Gal Solorio MD PDMP [facility] [place] 02/14/24 09:59 Mateo Scott MD, MD PDMP [facility] [place] 03/06/24 10:25 Jessika Suarez MD PDMP [facility] [place] 03/30/24 11:27 Urbano Boyle PDMP [facility] [place] 03/30/24 11:49 Urbano Boyle PDMP [facility] [place] Urine Drug Screen: A urine drug screen is required prior to reaching 90 days of opioid therapy and at least annually thereafter. No data available for: OPIATES SCREEN OXYCODONE SCREEN METHADONE SCREEN BENZODIAZEPINES SCREEN COCAINE SCREEN CANNABINOIDS SCREEN ALCOHOL, ETHYL URINE AMPHETAMINES SCREEN BUPRENORPHINE (URINE) Ethyl Glucuronide Screen Ethyl Sulfate Ethyl Glucuronide Conf Most Recent Naloxone Prescription Information: Reminder Term: VA-NALOXONE USE Drug: NALOXONE HCL 4MG/SPRAY SOLN NASAL SPRAY Outpatient Medication: NALOXONE HCL 4MG/SPRAY SOLN NASAL SPRAY 02/05/2023@06:38:48 Status: Start date: 01/06/2023@06:38:48 Stop date: 02/05/2023@06:38:48 Duration: 30 D Last release date: 01/06/2023@06:38:48 Days supply: 30 Last visit with PCP or Ordering Provider: Next Opioid Prescriber Visit: Apr /divya/ URBANO BOYLE, PHARM.D CLINICAL PHARMACIST PRACTITIONER Signed: 03/30/2024 11:55 Receipt Acknowledged By: 03/30/2024 12:03 /divya/ JESSIKA SUAREZ MD PHYSICIAN URBANO BOYLE [facility] [place] [facility] Mar 30, 2024 11:30 AM ACCOUNTING OF DISC LOSURES NOTE: LOCAL TITLE: STATE PRESCRIPTION DRUG MONITORING PROGRAM STANDARD TITLE: ACCOUNTING OF DISCLOSURES NOTE DATE OF NOTE: MAR 30, 2024@11:30:22 ENTRY DATE: MAR 30, 2024@11:30:22 AUTHOR: URBANO BOYLE EXP COSIGNER: URGENCY: STATUS: COMPLETED This PDMP query was submitted by Urbano Boyle. The clinical justification for this PDMP query is to review controlled substances prescribed outside of the [facility], and any additional information that may become available, as an important component of standard clinical care, and in accordance with [facility] policy. Patient information was shared with the PDMP [employer] [place]. Prescription(s) filled outside the [facility] in the last 90 days are noted. Safety concerns will be discussed with the patient and documented as part of ongoing treatment planning. Had surgery done with [facility] on 03/17/24. Got rx for oxycodone 15mg IR #42 for 7 days supply on 03/21/24. 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 03/21/2024 1 03/21/2024 Oxycodone Hcl (Ir) 15 Mg Tab 42.00 7 Sa Del [id number] [place] (9210) 0/0 135.00 MME Medicare [place] 03/06/2024 1 01/03/2024 Temazepam 30 Mg Capsule 30.00 30 Ar Mon [id number] [place] (5754) 1/3 /[facility] [place] 03/06/2024 1 03/06/2024 Oxycodone Hcl (Ir) 5 Mg Tablet 224.00 28 Se [place] [id number] [place] (4534) 0/0 60.00 MME /[facility] [place] 03/04/2024 1 02/14/2024 Clonazepam 0.5 Mg Tablet 120.00 30 Ar Mon [id number] [place] (4904) 1/ /[place] 02/16/2024 1 02/14/2024 Clonazepam 0.5 Mg Tablet 120.00 30 Ar Mon [id number] [place] (4904) 0/3 /[place] 02/14/2024 1 11/17/2023 Buprenorphine 2 Mg Tablet Sl 240.00 30 Wi Cut [id number] [place] (4904) 3 16.00 mg /[place] 01/31/2024 1 01/03/2024 Temazepam 30 Mg Capsule 30.00 30 Ar Mon [id number] [place] (4904) 0/ /[place] 01/31/2024 1 01/26/2024 Oxycodone Hcl (Ir) 5 Mg Tablet 224.00 28 Wi Cut [id number] [place] (4904) 0/0 60.00 MME /[facility] 01/20/2024 1 11/17/2023 Buprenorphine 2 Mg Tablet Sl 240.00 30 Wi Cut [id number] [place] (4904) 2 16.00 mg /[facility] 01/20/2024 1 01/03/2024 Clonazepam 0.5 Mg Tablet 120.00 30 Ar Mon [id number] [place] (4904) 0/1 /[facility] 01/04/2024 1 01/04/2024 Oxycodone Hcl (Ir) 5 Mg Tablet 336.00 28 Wi Cut [id number] [place] (4904) 0/0 90.00 MME /[facility] 12/31/2023 1 11/17/2023 Buprenorphine 2 Mg Tablet Sl 240.00 30 Wi Cut [id number] [place] (4904) 1 16.00 mg /[place] 12/31/2023 1 10/07/2023 Temazepam 30 Mg Capsule 30.00 30 Ar Mon [id number] [place] (4904) 3/ /[place] 12/16/2023 1 12/16/2023 Clonazepam 0.5 Mg Tablet 28.00 7 Ar Mon [id number] [place] (4904) 0/0 /[place] 12/15/2023 1 10/07/2023 Clonazepam 0.5 Mg Tablet 60.00 30 Ar Mon [id number] [place] (5614) 2/3 /[place] 12/08/2023 1 12/07/2023 Oxycodone Hcl (Ir) 5 Mg Tablet 336.00 28 Wi Cut [id number] [place] (1594) 0/0 90.00 MME /[place] 11/26/2023 1 11/17/2023 Buprenorphine 2 Mg Tablet Sl 240.00 30 Wi Cut [id number] [place] (7514) 0/5 16.00 mg /[place] 11/25/2023 1 10/07/2023 Temazepam 30 Mg Capsule 30.00 30 Ar Mon [id number] [place] (1614) 2 /[place] /divya/ URBANO BOYLE, PHARM.D CLINICAL PHARMACIST PRACTITIONER Signed: 03/30/2024 11:51 URBANO BOYLE [facility]
--- OUTSIDE RECORDS SUMMARY | 2024-07-05 03:45 | XMS_ITS | Encounter Summary ---
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 Address [address] [place] [address] Care Team Providers Care Recycling Director Name Role Phone ROMANA CASTILLO Primary [...] Garcia's Name Patient's Relationship to Policy Garcia [facility] (MEDICAID) [facility] May 14, 2009 [id number] SAMPLE,ROCCO MOORE PATIENT [facility] MEDICAID [facility] May 14, 2009 [id number] SAMPLE,ROCCO MOORE PATIENT MEDICAID [facility]ICAID [facility] Jul 26, 2018 MEDICAI D [id number] SAMPLE,ROCCO MOORE PATIENT MEDICARE (WNR) MEDICARE (M) PART A November 24, 2015 PART A [id number] SAMPLE,ROCCO MOORE PATIENT MEDICARE (WNR) MEDICARE (M) PART B November 24, 2015 PART B [id number] SAMPLEROCCO PATIENT Selected Encounter This section includes the information on [place] at [place] for the Encounter. Date/Time Encounter Type Encounter Description Reason Provider Source Mar 16, 2024 03:54 PM HC PRO PHONE CALL 5-10 MIN TELEPHONE PRIMARY CARE ICD-10-CM J44.9 Chronic obstructive pulmonary disease, unspecified JARMOLOWICZ,BE TSY IHE Encounter Template Text not used by [place] Assessments - Encounter Diagnoses This section includes the primary and secondary diagnoses documented for the Encounter. Date/Time Primary/Secondary Diagnosis Diagnosis Name Provider Source Mar 16, 2024 03:54 PM PRIMARY Chronic obstructive pulmonary disease, unspecified JARMOLOWICZ,BE TSY [place] [facility] [place] [facility] Plan of Treatment: Future Appointments [...] - MEDICINE [place] [facility] [place] [facility] Apr 13, 2024 11:00 AM AMBULATORY - PS[place]CHIATRY [place] [facility] [place] [facility] Apr 13, 2024 02:00 PM AMBULATORY - MEDICINE [place] [facility] [place] [facility] Apr 13, 2024 03:00 PM AMBULATORY - MEDICINE [place] [facility] [place] [facility] May 02, 2024 11:00 AM AMBULATORY - MEDICINE [place] [facility] [place] [facility] May 15, 2024 11:30 AM AMBULATORY - PS[place]CHIATRY [place] [facility] [place] [facility] May 25, 2024 11:30 AM AMBULATORY - MEDICINE [place] [facility] [place] [facility] Jul 13, 2024 10:00 AM AMBULATORY - MEDICINE [place] [facility] [place] [facility] Aug 24, 2024 11:00 AM AMBULATORY - MEDICINE [place] [place] [facility] Lab Results: +/- 30 days [...] Range Comment Mar 06, 2024 09:56 AM [facility] VIT[facility]IN D ([place]) Specimen Type: SERUM No comment entered. Ordering Provider: Sherrie CASTILLO Report Released Date/Time: Mar 06, 2024 09:36 AM Reporting Lab: [facility] [address] Performing Lab: [facility] [address] [address] VITAMIN D (25-[place]) 20 ng/mL 20-50 Mar 06, 2024 09:56 AM [facility] IRON & TIBC PANEL Specimen Type: SERUM No comment entered. Ordering Provider: Sherrie CASTILLO Report Released Date/Time: Mar 06, 2024 09:36 AM Reporting Lab: [facility] [address] [address] Performing Lab: [facility] [address] TIBC 364 ug/dL 204-475 IRON 36 ug/dL L 40-160 Transferrin Saturation 9.9 L 20.0-50.0 Mar 06, 2024 09:56 AM [facility] FERRITIN Specimen Type: SERUM No comment entered. Ordering Provider: Sherrie CASTILLO Report Released Date/Time: Mar 06, 2024 09:36 AM Reporting Lab: [facility] [address] [address] Performing Lab: [facility] [address] [address] FERRITIN 52 ng/mL 10-200 Mar 06, 2024 09:56 AM [facility] HEMOGLOBIN A1C PANEL Specimen Type: BLOOD [...] Mar 06, 2024 09:36 AM Reporting Lab: [address] [address] Performing Lab: [address] [address] HEMOGLOBIN A1C 5.4 4.0-5.6 Mar 06, 2024 09:56 AM [facility] MICROALBUMIN CREATININE RATIO PANEL Specimen Type: URINE No comment entered. Ordering Provider: Sherrie CASTILLO Report Released Date/Time: Mar 06, 2024 09:36 AM Reporting Lab: [address] [address] Performing Lab: [address] [address] MICROALBUMIN/C REATININE RATIO 251.1 mg/g H 0-29.9 MICROALBUMIN,Q UANTITATIVE 11.2 mg/dL RR UNAVAIL CREATININE URINE 44.60 mg/dL Mar 06, 2024 09:56 AM [facility] BASIC METABOLIC PANEL (non-fasting) Specimen Type: SERUM No comment entered. Ordering Provider: Sherrie CASTILLO Report Released Date/Time: Mar 06, 2024 09:36 AM Reporting Lab: [address] [address] Performing Lab: [address] [address] UREA NITROGEN 28 mg/dL H 7-25 GLUCOSE 130 mg/dL H 65-100 SODIUM 142 mmol/L 135-145 POTASSIUM 4.8 mmol/L 3.5-5.0 CHLORIDE 97 mmol/L L 100-110 CO2 33 meq/L H 20-30 CREATININE, Serum 1.00 mg/dL 0.50-1.40 eGFR(CKD-EPI 2020) 63 mL/min >60 Mar 06, 2024 09:56 AM [facility] CBC AND DIFF (AUTO) Specimen Type: BLOOD No comment entered. Ordering Provider: Sherrie CASTILLO Report Released Date/Time: Mar 06, 2024 09:36 AM Reporting Lab: [facility] [address] [facility] [address] Performing Lab: [facility] [address] [facility] [address] WBC 12.33 10*3/uL H 4.50-11.00 RBC 3.92 [...] place. Date/Time Current Smoking Status Comment Rosana [facility] Mar 06, 2024 09:00 AM VA-TOBACCO FORMER USER [place] [facility] [facility] Tobacco Use History This section includes a history of the smoking, or tobacco-related health factors, that were collected on or before the date of the Encounter. The data comes from the [place] facility where the Encounter took place. Date/Time Smoking Status/Tobac co Use Comment Facility Mar 06, 2024 09:00 AM VA-TOBACCO QUIT 15 YRS OR MORE [place] [facility] [place] [facility] Mar 31, 2023 11:00 AM VA-TOBACCO FORMER USER [place] [facility] [place] [facility] Mar 31, 2023 11:00 AM VA-TOBACCO QUIT 1 TO < 5 YRS [place] [facility] [place] [facility] Mar 25, 2022 10:30 AM VA-TOBACCO NEVER USED [place] [facility] [place] [facility] Mar 19, 2021 02:00 PM VA-TOBACCO FORMER USER [place] [facility] [place] [facility] Mar 19, 2021 02:00 PM VA-TOBACCO QUIT < 1 YEAR [place] [facility] [place] [facility] Sep 20, 2018 11:24 AM VA-TOBACCO USE DECLINED TO ANSWER [place] [facility] [place] [facility] Oct 21, 2017 08:13 AM QUIT TOBACCO USE IN PAST YEAR [place] [facility] [place] [facility] Dec 30, 2016 08:28 AM QUIT TOBACCO USE 1-7 YEARS AGO [place] [facility] [place] [facility] Jun 04, 2016 08:43 AM QUIT TOBACCO USE 1-7 YEARS AGO [place] [facility] [place] [facility] May 17, 2015 08:45 AM QUIT TOBACCO USE 1-7 YEARS AGO quit 2 years ago. [place] [facility] [place] [facility] Jun 07, 2014 09:25 AM QUIT TOBACCO USE 1-7 YEARS AGO [place] [facility] [place] [facility] November 30, 2013 08:44 AM QUIT TOBACCO USE IN PAST YEAR [place] [facility] [place] [facility] May 22, 2013 10:10 AM QUIT TOBACCO USE IN PAST YEAR [place] [facility] [place] [facility] December 01, 2012 01:54 PM QUIT TOBACCO USE IN PAST YEAR [place] [facility] [place] [facility] Jun 07, 2012 08:16 AM V1-PT DECLINES TOBACCO CESSATION MEDS [facility] [place] [place] [facility] Jun 07, 2012 08:16 AM V1-PT THINKING ABOUT QUIT TOBACCO USE [place] [facility] [place] [facility] Jan 05, 2012 09:00 AM CURRENT SMOKER intermittenly [facility] [place] [place] [facility] Jan 05, 2012 09:00 AM V1-PT DECLINES REF TO TOBACCO CESS PRGM [place] [facility] [place] [facility] Jan 05, 2012 09:00 AM V1-PT DECLINES TOBACCO CESSATION MEDS [facility] [place] [place] [facility] Jan 05, 2012 09:00 AM V1-PT THINKING ABOUT QUIT [facility]ACCO [facility] [place] [place] [facility] Feb 17, 2011 09:52 AM V1-PT DECLINES TOBACCO CESSATION MEDS [facility] [place] [place] [facility] Feb 17, 2011 09:52 AM V1-PT THINKING ABOUT QUIT TOBACCO USE [facility] [place] [place] [facility] Aug 13, 2010 11:31 AM QUIT TOBACCO USE IN PAST YEAR [facility] [place] [place] [facility] Feb 19, 2010 01:26 PM QUIT TOBACCO USE IN PAST YEAR [facility] [place] [place] [facility] Sep 13, 2009 11:04 AM QUIT TOBACCO USE IN PAST YEAR [facility] [place] [facility] Feb 05, 2009 08:29 AM V1-PT DECLINES REF TO TOBACCO CESS PRGM [place] [facility] [place] [facility] Feb 05, 2009 08:29 AM V1-PT DECLINES TOBACCO CESSATION MEDS [place] [facility] [place] [facility] Feb 05, 2009 08:29 AM V1-PT THINKING ABOUT QUIT TOBACCO USE [place] [facility] [place] [facility] Aug 22, 2008 09:04 AM QUIT TOBACCO USE IN PAST YEAR [facility] [place] [facility] Mar 12, 2008 10:40 AM V1-PT DECLINES REF TO TOBACCO CESS PRGM [facility] Mar 12, 2008 10:40 AM V1-PT DECLINES TOBACCO CESSATION MEDS [facility] Mar 12, 2008 10:40 AM V1-PT NOT INTERESTED IN QUIT TOBACCO USE [facility] Mar 08, 2008 09:37 AM CURRENT SMOKER smokes one pack a day for about 10 years ago. [facility] Encounter Notes: All associated encounter notes This section contains the clinical notes associated to the Encounter. Date/Time Encounter Note(s) Provider Source Mar 16, 2024 04:05 PM RESPIRATORY THERAP Y NOTE: LOCAL TITLE: RESPIRATORY THERAPY NOTE(BLANK) STANDARD TITLE: RESPIRATORY THERAPY NOTE DATE OF NOTE: MAR 16, 2024@16:05 ENTRY DATE: MAR 16, 2024@16:05:44 AUTHOR: ROSALVA HARMON EXP COSIGNER: URGENCY: STATUS: COMPLETED Telephone Coding and Documentation: Diagnosis: COPD Actual time spent with Patient via telephone: 10 minutes. Pradeep called to request travel oxygen be arranged for a 3-day trip to [place] next month. She will be staying at [address] and would like oxygen delivered for her stay. A consult was placed for a small liquid oxygen reservoir and a stationary concentrator to be delivered to the [facility]. states she is using the oxygen on different settings than ordered and she would like to come in for a new oxygen evaluation. She is also using at night with her BIPAP, but at 6L, not 4L. Pradeep agrees to come into [place] oxygen clinic for a new eval and an RTC will be placed. She also agrees to do an overnight oximetry (SOM) to check her nocturnal oxygen levels, and it will be ordered with her oxygen renewal. /divya/ ROSALVA HARMON BA, BODY LINE FINISHER, RPFT RESPIRATORY THERAPIST Signed: 03/16/2024 16:12 Receipt Acknowledged By: 03/21/2024 09:18 /divya/ ROSAVLA OLIVEIRA [facility]
--- OUTSIDE RECORDS SUMMARY | 2024-07-05 03:45 | XMS_ITS | Encounter Summary ---
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 [place] Organization Department of [place] Address [address] [place] [id number] Care Team Providers Care Test Center Administrator Name Role Phone ROMANA CASTILLO Primary Care [...] Garcia [facility] (MEDICAID) [facility] May 14, 2009 [id number] SAMPLE,ROCCO MOORE PATIENT [facility]ID [facility] May 14, 2009 [id number] SAMPLE,ROCCO MOORE PATIENT MEDICAID MEDICAID [facility] Jul 26, 2018 MEDICAI D [id number] SAMPLE,ROCCO MOORE PATIENT MEDICARE (WNR) MEDICARE (M) PART A November 24, 2015 PART A [id number] SAMPLE,ROCCO MOORE PATIENT MEDICARE (WNR) MEDICARE (M) PART B November 24, 2015 PART B [id number] ROCCO QUEZADA PATIENT Selected Encounter This section includes the information on record at [place] for the Encounter. Date/Time Encounter Type Encounter Description Reason Pro vider Source Mar 30, 2024 11:06 AM Outpatient Encounter PAIN CLINIC IHE Encounter [...] - MEDICINE [place] [facility] [place] [facility] Apr 13, 2024 11:00 AM AMBULATORY - PSYCHIATRY [place] [facility] [place] [facility] Apr 13, 2024 02:00 PM AMBULATORY - MEDICINE [place] [place] [facility] Apr 13, 2024 03:00 PM AMBULATORY - MEDICINE [place] [facility] May 02, 2024 11:00 AM AMBULATORY - MEDICINE [place] [facility] May 15, 2024 11:30 AM AMBULATORY - PSYCHIATRY [place] [facility] [place] [facility] May 25, 2024 11:30 AM AMBULATORY - MEDICINE [place] [facility] Jul 13, 2024 10:00 AM AMBULATORY - MEDICINE [place] [facility] Aug 24, 2024 11:00 AM AMBULATORY - MEDICINE [place] [facility] Lab Results: +/- 30 days of the encounter This section includes the Chemistry and Hematology Lab Results on record with [place] for the patient. Radiology Reports and Pathology Reports are provided separately, in subsequent sections. Lab Results This section contains the Chemistry/Hematology Results that were resulted 30 days before or 30 daysafter the date of the Encounter. Date/Time Source Result Type Result - Unit Interpretation Reference Range Comment Mar 06, 2024 09:56 AM [place] [facility] VIT[facility]IN D (25-[place]) Specimen Type: SERUM No comment entered. Ordering Provider: Sherrie CASTILLO Report Released Date/Time: Mar 06, 2024 09:36 AM Reporting Lab: [facility] [address] [facility] [address] Performing Lab: [facility] [address] VITAMIN D (25-[place]) 20 ng/mL 20-50 Mar 06, 2024 09:56 AM [facility] IRON & TIBC PANEL Specimen Type: SERUM No comment entered. Ordering Provider: Sherrie CASTILLO Report Released Date/Time: Mar 06, 2024 09:36 AM Reporting Lab: [facility] [address] Performing Lab: [facility] [address] TIBC 364 ug/dL 204-475 IRON 36 ug/dL L 40-160 Transferrin Saturation 9.9 L 20.0-50.0 Mar 06, 2024 09:56 AM [facility] FERRITIN Specimen Type: SERUM No comment entered. Ordering Provider: Sherrie CASTILLO Report Released Date/Time: Mar 06, 2024 09:36 AM Reporting Lab: [facility] [address] [facility] [address] Performing Lab: [address] [address] FERRITIN 52 ng/mL 10-200 Mar 06, 2024 09:56 AM [facility] HEMOGLOBIN A1C PANEL Specimen Type: BLOOD Comment: [...] Mar 06, 2024 09:36 AM Reporting Lab: [facility] [address] [facility] [address] Performing Lab: [facility] [address] HEMOGLOBIN A1C 5.4 4.0-5.6 Mar 06, 2024 09:56 AM [facility] MICROALBUMIN CREATININE RATIO PANEL Specimen Type: URINE No comment entered. Ordering Provider: Sherrie CASTILLO Report Released Date/Time: Mar 06, 2024 09:36 AM Reporting Lab: [facility] [address] [facility] [address] Performing Lab: [address] [address] MICROALBUMIN/C REATININE RATIO 251.1 mg/g H 0-29.9 MICROALBUMIN,Q UANTITATIVE 11.2 mg/dL RR UNAVAIL CREATININE URINE 44.60 mg/dL Mar 06, 2024 09:56 AM [facility] BASIC METABOLIC PANEL (non-fasting) Specimen Type: SERUM No comment entered. Ordering Provider: Sherrie CASTILLO Report Released Date/Time: Mar 06, 2024 09:36 AM Reporting Lab: [address] [address] Performing Lab: [address] [address] UREA NITROGEN 28 mg/dL H 7-25 GLUCOSE 130 mg/dL H 65-100 SODIUM 142 mmol/L 135-145 POTASSIUM 4.8 mmol/L 3.5-5.0 CHLORIDE 97 mmol/L L 100-110 CO2 33 meq/L H 20-30 CREATININE, Serum 1.00 mg/dL 0.50-1.40 eGFR(CKD-EPI 2020) 63 mL/min >60 Mar 06, 2024 09:56 AM [facility] CBC AND DIFF (AUTO) Specimen Type: BLOOD No comment entered. Ordering Provider: Sherrie CASTILLO Report Released Date/Time: Mar 06, 2024 09:36 AM Reporting Lab: [facility] [address] [facility] [address] Performing Lab: [facility] [address] [facility] [address] WBC 12.33 10*3/uL H 4.50-11.00 RBC 3.92 [...] place. Date/Time Current Smoking Status Comment Facil ity Mar 06, 2024 09:00 AM VA-TOBACCO FORMER USER [facility] Tobacco Use History This section includes a history of the smoking, or tobacco-related health factors, that were collected on or before the date of the Encounter. The data comes from the [place] facility where the Encounter took place. Date/Time Smoking Status/Tobac co Use Comment Facility Mar 06, 2024 09:00 AM VA-TOBACCO QUIT 15 YRS OR MORE [place] [facility] [place] [facility] Mar 31, 2023 11:00 AM VA-TOBACCO FORMER USER [place] [facility] [place] [facility] Mar 31, 2023 11:00 AM VA-TOBACCO QUIT 1 TO < 5 YRS [place] [facility] [place] [facility] Mar 25, 2022 10:30 AM VA-TOBACCO NEVER USED [place] [facility] [place] [facility] Mar 19, 2021 02:00 PM VA-TOBACCO FORMER USER [place] [facility] [place] [facility] Mar 19, 2021 02:00 PM VA-TOBACCO QUIT < 1 YEAR [place] [facility] [place] [facility] Sep 20, 2018 11:24 AM VA-TOBACCO USE DECLINED TO ANSWER [place] [facility] [place] [facility] Oct 21, 2017 08:13 AM QUIT TOBACCO USE IN PAST YEAR [place] [facility] [place] [facility] Dec 30, 2016 08:28 AM QUIT TOBACCO USE 1-7 YEARS AGO [place] [facility] [place] [facility] Jun 04, 2016 08:43 AM QUIT TOBACCO USE 1-7 YEARS AGO [place] [facility] [place] [facility] May 17, 2015 08:45 AM QUIT TOBACCO USE 1-7 YEARS AGO quit 2 years ago. [place] [facility] [place] [facility] Jun 07, 2014 09:25 AM QUIT TOBACCO USE 1-7 YEARS AGO [place] [facility] [place] [facility] November 30, 2013 08:44 AM QUIT TOBACCO USE IN PAST YEAR [place] [facility] [place] [facility] May 22, 2013 10:10 AM QUIT TOBACCO USE IN PAST YEAR [place] [facility] [place] [facility] December 01, 2012 01:54 PM QUIT TOBACCO USE IN PAST YEAR [place] [facility] [place] [facility] Jun 07, 2012 08:16 AM V1-PT DECLINES TOBACCO CESSATION MEDS [place] [facility] [place] [facility] Jun 07, 2012 08:16 AM V1-PT THINKING ABOUT QUIT TOBACCO USE [place] [facility] [place] [facility] Jan 05, 2012 09:00 AM CURRENT SMOKER intermittenly [place] [facility] [place] [facility] Jan 05, 2012 09:00 AM V1-PT DECLINES REF TO TOBACCO CESS PRGM [facility] [place] [facility] Jan 05, 2012 09:00 AM V1-PT DECLINES TOBACCO CESSATION MEDS [place] [facility] [place] [facility] Jan 05, 2012 09:00 AM V1-PT THINKING ABOUT QUIT TOBACCO USE [place] [facility] [place] [facility] Feb 17, 2011 09:52 AM V1-PT DECLINES TOBACCO CESSATION MEDS [place] [facility] [place] [facility] Feb 17, 2011 09:52 AM V1-PT THINKING ABOUT QUIT TOBACCO USE [place] [facility] [place] [facility] Aug 13, 2010 11:31 AM QUIT TOBACCO USE IN PAST YEAR [place] [facility] [place] [facility] Feb 19, 2010 01:26 PM QUIT TOBACCO USE IN PAST YEAR [place] [facility] [place] [facility] Sep 13, 2009 11:04 AM QUIT TOBACCO USE IN PAST YEAR [place] [facility] [place] [facility] Feb 05, 2009 08:29 AM V1-PT DECLINES REF TO TOBACCO CESS [facility] [place] [place] [facility] Feb 05, 2009 08:29 AM V1-PT DECLINES TOBACCO CESSATION MEDS [facility] Feb 05, 2009 08:29 AM V1-PT THINKING ABOUT QUIT TOBACCO USE [place] [facility] [place] [facility] Aug 22, 2008 09:04 AM QUIT TOBACCO USE IN PAST YEAR [place] [facility] [place] [facility] Mar 12, 2008 10:40 AM V1-PT DECLINES REF TO TOBACCO CESS PRGM [place] [facility] [place] [facility] Mar 12, 2008 10:40 AM V1-PT DECLINES TOBACCO CESSATION MEDS [place] [facility] [place] [facility] Mar 12, 2008 10:40 AM V1-PT NOT INTERESTED IN QUIT TOBACCO USE [place] [facility] [place] [facility] Mar 08, 2008 09:37 AM CURRENT SMOKER smokes one pack a day for about 10 years ago. [place] [facility] [place] [facility] Encounter Notes: All associated encounter notes This section contains the clinical notes associated to the Encounter. Date/Time Encounter Note(s) Provider Source Mar 30, 2024 11:06 AM TELEPHONE ENCOUNTER NOTE: LOCAL TITLE: TELEPHONE NOTE/SPECIALTY CLINIC STANDARD TITLE: TELEPHONE ENCOUNTER NOTE DATE OF NOTE: MAR 30, 2024@11:06 ENTRY DATE: MAR 30, 2024@11:06:06 AUTHOR: LORI QUEVEDO COSIGNER: URGENCY: STATUS: COMPLETED Vet left multiple vms requesting a call back from provider today. Phone number on file confirmed. /divya/ LORI QUEVEDO ADVANCED POLE INSPECTOR Signed: 03/30/2024 11:06 Receipt Acknowledged By: 03/30/2024 12:01 /divya/ JESSIKA CORONEL MD PHYSICIAN 03/30/2024 11:13 /divya/ URBANO FOSTER, PHARM.D CLINICAL PHARMACIST PRACTITIONER LORI QUEVEDO [facility]
--- OUTSIDE RECORDS SUMMARY | 2024-07-05 03:45 | XMS_ITS | Encounter Summary ---
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 Address [address] [place] [address] Care Team Providers Care Basket Person Name Role Phone ROMANA CASTILLO Primary Care [...] Garcia's Name Patient's Relationship to Policy Garcia [facility] (MEDICAID) [facility] May 14, 2009 [id number] SAMPLE,ROCCO MOORE PATIENT [facility] MEDICAID [facility] May 14, 2009 [id number] SAMPLE,ROCCO MOORE PATIENT MEDICAID MEDICAID [facility] Jul 26, 2018 MEDICAI D [id number] SAMPLE,ROCCO MOORE PATIENT MEDICARE (WNR) MEDICARE (M) PART A November 24, 2015 PART A [id number] SAMPLE,ROCCO MOORE PATIENT MEDICARE (WNR) MEDICARE (M) PART B November 24, 2015 PART B [id number] ROCCO QUEZADA PATIENT Selected Encounter This section includes the information on record at [place] for the Encounter. Date/Time Encounter Type Encounter Description Reason Pro vider Source Mar 16, 2024 11:46 AM Outpatient Encounter PAIN CLINIC IHE Encounter [...] - MEDICINE [place] [facility] [place] [facility] Apr 13, 2024 11:00 AM AMBULATORY PSYCHIATRY [place] [facility] [place] [facility] Apr 13, 2024 02:00 PM AMBULATORY - MEDICINE [place] [facility] [place] [facility] Apr 13, 2024 03:00 PM AMBULATORY - MEDICINE [place] [facility] [place] [facility] May 02, 2024 11:00 AM AMBULATORY - MEDICINE [place] [facility] [place] [facility] May 15, 2024 11:30 AM AMBULATORY - PSYCHIATRY [place] [facility] [place] [facility] May 25, 2024 11:30 AM AMBULATORY - MEDICINE [place] [facility] [place] [facility] Jul 13, 2024 10:00 AM AMBULATORY - MEDICINE [place] [facility] [place] [facility] Aug 24, 2024 11:00 AM AMBULATORY - MEDICINE [place] [facility] [place] [facility] Lab Results: +/- 30 days of the encounter This section includes the Chemistry and Hematology Lab Results on record with [place] for the patient. Radiology Reports and Pathology Reports are provided separately, in subsequent sections. Lab Results This section contains the Chemistry/Hematology Results that were resulted 30 days before or 30 daysafter the date of the Encounter. Date/Time Source Result Type Result - Unit Interpretation Reference Range Comment Mar 06, 2024 09:56 AM [place] [facility] VITAMIN D (25-[place]) Specimen Type: SERUM No comment entered. Ordering Provider: Sherrie CASTILLO Report Released Date/Time: Mar 06, 2024 09:36 AM Reporting Lab: [facility] [address] [facility] [address] Performing Lab: [facility] [address] VITAMIN D (25-OH) 20 ng/mL 20-50 Mar 06, 2024 09:56 AM [facility] IRON & TIBC PANEL Specimen Type: SERUM No comment entered. Ordering Provider: Sherrie CASTILLO Report Released Date/Time: Mar 06, 2024 09:36 AM Reporting Lab: [facility] [address] Performing Lab: [facility] [address] TIBC 364 ug/dL 204-475 IRON 36 ug/dL L 40-160 Transferrin Saturation 9.9 L 20.0-50.0 Mar 06, 2024 09:56 AM [facility] FERRITIN Specimen Type: SERUM No comment entered. Ordering Provider: Sherrie CASTILLO Report Released Date/Time: Mar 06, 2024 09:36 AM Reporting Lab: [facility] [address] [facility] [address] Performing Lab: [address] [address] FERRITIN 52 ng/mL 10-200 Mar 06, 2024 09:56 AM [facility] HEMOGLOBIN A1C PANEL Specimen Type: BLOOD Comment: [...] Mar 06, 2024 09:36 AM Reporting Lab: [facility] [address] [facility] [address] Performing Lab: [facility] [address] HEMOGLOBIN A1C 5.4 4.0-5.6 Mar 06, 2024 09:56 AM [facility] MICROALBUMIN CREATININE RATIO PANEL Specimen Type: URINE No comment entered. Ordering Provider: Sherrie CASTILLO Report Released Date/Time: Mar 06, 2024 09:36 AM Reporting Lab: [facility] [address] [facility] [address] Performing Lab: [address] [address] MICROALBUMIN/C REATININE RATIO 251.1 mg/g H 0-29.9 MICROALBUMIN,Q UANTITATIVE 11.2 mg/dL RR UNAVAIL CREATININE URINE 44.60 mg/dL Mar 06, 2024 09:56 AM [facility] BASIC METABOLIC PANEL (non-fasting) Specimen Type: SERUM No comment entered. Ordering Provider: Sherrie CASTILLO Report Released Date/Time: Mar 06, 2024 09:36 AM Reporting Lab: [address] [address] Performing Lab: [address] [address] UREA NITROGEN 28 mg/dL H 7-25 GLUCOSE 130 mg/dL H 65-100 SODIUM 142 mmol/L 135-145 POTASSIUM 4.8 mmol/L 3.5-5.0 CHLORIDE 97 mmol/L L 100-110 CO2 33 meq/L H 20-30 CREATININE, Serum 1.00 mg/dL 0.50-1.40 eGFR(CKD-EPI 2020) 63 mL/min >60 Mar 06, 2024 09:56 AM [facility] CBC AND DIFF (AUTO) Specimen Type: BLOOD No comment entered. Ordering Provider: Sherrie CASTILLO Report Released Date/Time: Mar 06, 2024 09:36 AM Reporting Lab: [facility] [address] [facility] [address] Performing Lab: [facility] [address] [facility] [address] WBC 12.33 10*3/uL H 4.50-11.00 RBC 3.92 [...] 06, 2024 09:00 AM VA-TOBACCO FORMER USER [facility] Tobacco Use History This section includes a history of the smoking, or tobacco-related health factors, that were collected on or before the date of the Encounter. The data comes from the [place] facility where the Encounter took place. Date/Time Smoking Status/Tobac co Use Comment Facility Mar 06, 2024 09:00 AM VA-TOBACCO QUIT 15 YRS OR MORE [place] [facility] [place] [facility] Mar 31, 2023 11:00 AM VA-TOBACCO FORMER USER [place] [facility] [place] [facility] Mar 31, 2023 11:00 AM VA-TOBACCO QUIT 1 TO < 5 YRS [place] [facility] [place] [facility] Mar 25, 2022 10:30 AM VA-TOBACCO NEVER USED [place] [facility] [place] [facility] Mar 19, 2021 02:00 PM VA-TOBACCO FORMER USER [place] [facility] [place] [facility] Mar 19, 2021 02:00 PM VA-TOBACCO QUIT < 1 YEAR [place] [facility] [place] [facility] Sep 20, 2018 11:24 AM VA-TOBACCO USE DECLINED TO ANSWER [place] [facility] [place] [facility] Oct 21, 2017 08:13 AM QUIT TOBACCO USE IN PAST YEAR [place] [facility] [place] [facility] Dec 30, 2016 08:28 AM QUIT TOBACCO USE 1-7 YEARS AGO [place] [facility] [place] [facility] Jun 04, 2016 08:43 AM QUIT TOBACCO USE 1-7 YEARS AGO [place] [facility] [place] [facility] May 17, 2015 08:45 AM QUIT TOBACCO USE 1-7 YEARS AGO quit 2 years ago. [place] [facility] [place] [facility] Jun 07, 2014 09:25 AM QUIT TOBACCO USE 1-7 YEARS AGO [place] [facility] [place] [facility] November 30, 2013 08:44 AM QUIT TOBACCO USE IN PAST YEAR [place] [facility] [place] [facility] May 22, 2013 10:10 AM QUIT TOBACCO USE IN PAST YEAR [place] [facility] [place] [facility] December 01, 2012 01:54 PM QUIT TOBACCO USE IN PAST YEAR [place] [facility] [place] [facility] Jun 07, 2012 08:16 AM V1-PT DECLINES TOBACCO CESSATION MEDS [place] [facility] [place] [facility] Jun 07, 2012 08:16 AM V1-PT THINKING ABOUT QUIT TOBACCO USE [facility] [place] [facility] Jan 05, 2012 09:00 AM CURRENT SMOKER intermittenly [facility] [place] [facility] Jan 05, 2012 09:00 AM V1-PT DECLINES REF TO TOBACCO CESS PRGM [facility] [place] [facility] Jan 05, 2012 09:00 AM V1-PT DECLINES TOBACCO CESSATION MEDS [facility] [place] [facility] Jan 05, 2012 09:00 AM V1-PT THINKING ABOUT QUIT TOBACCO USE [facility] [place] [facility] Feb 17, 2011 09:52 AM V1-PT DECLINES TOBACCO CESSATION MEDS [place] [facility] [place] [facility] Feb 17, 2011 09:52 AM V1-PT THINKING ABOUT QUIT TOBACCO USE [facility] [place] [facility] Aug 13, 2010 11:31 AM QUIT TOBACCO USE IN PAST YEAR [place] [facility] [place] [facility] Feb 19, 2010 01:26 PM QUIT TOBACCO USE IN PAST YEAR [place] [facility] [place] [facility] Sep 13, 2009 11:04 AM QUIT TOBACCO USE IN PAST YEAR [place] [facility] [place] [facility] Feb 05, 2009 08:29 AM V1-PT DECLINES REF TO TOBACCO CESS PRGM [facility] [place] [facility] Feb 05, 2009 08:29 AM V1-PT DECLINES TOBACCO CESSATION MEDS [facility] Feb 05, 2009 08:29 AM V1-PT THINKING ABOUT QUIT TOBACCO USE [place] [facility] [place] [facility] Aug 22, 2008 09:04 AM QUIT TOBACCO USE IN PAST YEAR [place] [facility] [place] [facility] Mar 12, 2008 10:40 AM V1-PT DECLINES REF TO TOBACCO CESS PRGM [place] [facility] [place] [facility] Mar 12, 2008 10:40 AM V1-PT DECLINES TOBACCO CESSATION MEDS [place] [facility] [place] [facility] Mar 12, 2008 10:40 AM V1-PT NOT INTERESTED IN QUIT TOBACCO USE [place] [facility] [place] [facility] Mar 08, 2008 09:37 AM CURRENT SMOKER smokes one pack a day for about 10 years ago. [place] [facility] Encounter Notes: All associated encounter notes This section contains the clinical notes associated to the Encounter. Date/Time Encounter Note(s) Provider Source Mar 16, 2024 11:46 AM TELEPHONE ENCOUNTE R NOTE: LOCAL TITLE: TELEPHONE NOTE/SPECIALTY CLINIC STANDARD TITLE: TELEPHONE ENCOUNTER NOTE DATE OF NOTE: MAR 16, 2024@11:46 ENTRY DATE: MAR 16, 2024@11:46:23 AUTHOR: BEULAH LOPEZ EXP COSIGNER: URGENCY: STATUS: COMPLETED TELEPHONE NOTE/SPECIALTY CLINIC Has ADDENDA vet calling to speak with dr. solorio. She is having surgery on her right side 03/17/2024 in morning. She will be in hospital at least one night. She needs to talk with provider about pain management. She is not sure if surgeon Dr. Mills will be doing this. Please call [phone] /divya/ BEULAH LOPEZ ADVANCED ELEVATOR REPAIRER HELPER Signed: 03/16/2024 11:48 Receipt Acknowledged By: 03/21/2024 17:58 /es/ Gal Solorio MD STAFF PHYSICIAN 03/16/2024 11:59 /es/ ERIC DOUGLAS CLINICAL PHARMACIST PRACTITIONER, PAIN 03/16/2024 11:51 /es/ JESSIKA CORONEL MD PHYSICIAN 03/16/2024 13:22 /es/ URBANO FOSTER, PHARM.D CLINICAL PHARMACIST PRACTITIONER 03/16/2024 ADDENDUM STATUS: COMPLETED I called and spoke with . Sheis concerned about pain management after her surgery tomorrow. She has to bring her own buprenorphine to use while she stays there. She thinks she will need extra oxycodone when she gets home. At this time she does not need anything. She wanted us to have situational awareness. I informed her we will note this and Dr Solorio will be back next week. /divya/ JESSIKA CORONEL MD PHYSICIAN Signed: 03/16/2024 11:58 BEULAH LOPEZ [facility]
--- OUTSIDE RECORDS SUMMARY | 2024-07-05 03:45 | XMS_ITS | Encounter Summary ---
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 Organization [place] Address [address] [place] [address] Care Team Providers Care [place] Treasurer Name Role Phone ROMANA CASTILLO Primary Care [...] Garcia's Name Patient's Relationship to Policy Garcia [facility] (MEDICAID) [facility] May 14, 2009 [id number] SAMPLE,ROCCO MOORE PATIENT [facility] MEDICAID [facility] May 14, 2009 [id number] SAMPLE,ROCCO MOORE PATIENT MEDICAID MEDICAID [facility] [place] Jul 26, 2018 MEDICAI D [id number] SAMPLE,ROCCO MOORE PATIENT MEDICARE (WNR) MEDICARE (M) PART B November 24, 2015 PART B [id number] SAMPLE,ROCCO MOORE PATIENT MEDICARE (WNR) MEDICARE (M) PART A November 24, 2015 PART A [id number] ROCCO QUEZADA PATIENT Selected Encounter This section includes the information on record at [place] for the Encounter. Date/Time Encounter Type Encounter Description Reason Pro vider Source Mar 28, 2024 03:12 PM Outpatient Encounter PAIN CLINIC IHE Encounter Template Text not used by [place] Plan of Treatment: Future Appointments (+ 6 months) and Future Tests (+/- 45 days) The Plan of Treatment section includes future care activities for the patient from all [place] treatmentfacilities. This section includes future appointments and future orders which are active, pending or scheduled. Future Appointments This section includes appointments that were scheduled to occur 6 months from the date of the Encounter, up to a maximum of 20 appointments. The data comes from all [place] treatment facilities. Appointment Date/Time Appointment Type Appointme nt Facility Name Apr 03, 2024 11:30 AM AMBULATORY - MEDICINE [place] [facility] [place] [facility] Apr 13, 2024 11:00 AM AMBULATORY - PSYCHIATRY [place] [facility] [place] [facility] Apr 13, 2024 02:00 PM AMBULATORY - MEDICINE [place] [facility] [place] [facility] Apr 13, 2024 03:00 PM AMBULATORY - MEDICINE [place] [facility] [place] [facility] May 02, 2024 11:00 AM AMBULATORY - MEDICINE [place] [facility] [place] [facility] May 15, 2024 11:30 AM AMBULATORY - PSYCHIATRY [place] [facility] [place] [facility] May 25, 2024 11:30 AM AMBULATORY - MEDICINE [place] [facility] [place] [facility] Jul 13, 2024 10:00 AM AMBULATORY - MEDICINE [place] [facility] [place] [facility] Aug 24, 2024 11:00 AM AMBULATORY - MEDICINE [place] [facility] [place] [facility] Lab Results: +/- 30 days of the encounter This section includes the Chemistry and Hematology Lab Results on record with [place] for the patient. Radiology Reports and Pathology Reports are provided separately, in subsequent sections. Lab Results This section contains the Chemistry/Hematology Results that were resulted 30 days before or 30 daysafter the date of the Encounter. Date/Time Source Result Type Result - Unit Interpretation Reference Range Comment Mar 06, 2024 09:56 AM [place] [facility] [place] [facility] IRON & TIBC PANEL Specimen Type: SERUM No comment entered. Ordering Provider: Sherrie CASTILLO Report Released Date/Time: Mar 06, 2024 09:36 AM Reporting Lab: [facility] [address] [facility] [address] Performing Lab: [facility] [address] TIBC 364 ug/dL 204-475 IRON 36 ug/dL L 40-160 Transferrin Saturation 9.9 L 20.0-50.0 Mar 06, 2024 09:56 AM [facility] FERRITIN Specimen Type: SERUM No comment entered. Ordering Provider: Sherrie CASTILLO Report Released Date/Time: Mar 06, 2024 09:36 AM Reporting Lab: [facility] [address] Performing Lab: [address] [address] FERRITIN 52 ng/mL 10-200 Mar 06, 2024 [...] 09:36 AM Reporting Lab: [facility] [address] Performing Lab: [address] [address] HEMOGLOBIN A1C 5.4 4.0-5.6 Mar 06, 2024 09:56 AM [facility] VITAMIN D (25-OH) Specimen Type: SERUM No comment entered. Ordering Provider: Sherrie CASTILLO Report Released Date/Time: Mar 06, 2024 09:36 AM Reporting Lab: [facility] [address] [facility] [address] Performing Lab: [facility] [address] [address] VITAMIN D (25-OH) 20 ng/mL 20-50 Mar 06, 2024 09:56 AM [facility] MICROALBUMIN CREATININE RATIO PANEL Specimen Type: URINE No comment entered. Ordering Provider: Sherrie CASTILLO Report Released Date/Time: Mar 06, 2024 09:36 AM Reporting Lab: [facility] [address] [facility] [address] Performing Lab: [address] [address] MICROALBUMIN/C REATININE RATIO 251.1 mg/g H 0-29.9 MICROALBUMIN,Q UANTITATIVE 11.2 mg/dL RR UNAVAIL CREATININE URINE 44.60 mg/dL Mar 06, 2024 09:56 AM [facility] BASIC METABOLIC PANEL (non-fasting) Specimen Type: SERUM No comment entered. Ordering Provider: Sherrie CASTILLO Report Released Date/Time: Mar 06, 2024 09:36 AM Reporting Lab: [address] [address] Performing Lab: [address] [address] UREA NITROGEN 28 mg/dL H 7-25 GLUCOSE [...] AM Reporting Lab: [facility] [address] [facility] [address] Performing Lab: [facility] [address] [facility] [address] WBC 12.33 10*3/uL H 4.50-11.00 RBC 3.92 [...] and tobacco- related health factors from the [place] facility where the Encounter took place. Current Smoking Status This section includes the most current smoking, or tobacco-related health factor, from the [place] facility where the Encounter took place. Date/Time Current Smoking Status Comment Facil ity Mar 06, 2024 09:00 AM VA-TOBACCO FORMER USER [facility] Tobacco Use History This section includes a history of the smoking, or tobacco-related health factors, that were collected on or before the date of the Encounter. The data comes from the [place] facility where the Encounter took place. Date/Time Smoking Status/Tobac co Use Comment Facility Mar 06, 2024 09:00 AM VA-TOBACCO QUIT 15 YRS OR MORE [place] [facility] [place] [facility] Mar 31, 2023 11:00 AM VA-TOBACCO FORMER USER [place] [facility] [place] [facility] Mar 31, 2023 11:00 AM VA-TOBACCO QUIT 1 TO < 5 YRS [place] [facility] [place] [facility] Mar 25, 2022 10:30 AM VA-TOBACCO NEVER USED DE [facility]TR [facility] [place] [facility] Mar 19, 2021 02:00 PM VA-TOBACCO FORMER USER [place] [facility] [place] [facility] Mar 19, 2021 02:00 PM VA-TOBACCO QUIT < 1 YEAR DE [facility] [place] [facility] Sep 20, 2018 11:24 AM VA-TOBACCO USE DECLINED TO ANSWER [place] [facility]TR [facility] [place] [facility] Oct 21, 2017 08:13 AM QUIT TOBACCO USE IN PAST YEAR [place] [facility] [place] [facility] Dec 30, 2016 08:28 AM QUIT TOBACCO USE 1-7 YEARS AGO [facility] [place] [facility] Jun 04, 2016 08:43 AM QUIT TOBACCO USE 1-7 YEARS AGO [place] [facility] [place] [facility] May 17, 2015 08:45 AM QUIT TOBACCO USE 1-7 YEARS AGO quit 2 years ago. [place] [facility] [place] [facility] Jun 07, 2014 09:25 AM QUIT TOBACCO USE 1-7 YEARS AGO [place] [facility] [place] [facility] November 30, 2013 08:44 AM QUIT TOBACCO USE IN PAST YEAR [place] [facility] [place] [facility] May 22, 2013 10:10 AM QUIT TOBACCO USE IN PAST YEAR [facility] [place] [facility] December 01, 2012 01:54 PM QUIT TOBACCO USE IN PAST YEAR [facility] [place] [facility] Jun 07, 2012 08:16 AM V1-PT DECLINES TOBACCO CESSATION MEDS [place] [facility] [place] [facility] Jun 07, 2012 08:16 AM V1-PT THINKING ABOUT QUIT TOBACCO USE [facility] [place] [facility] Jan 05, 2012 09:00 AM CURRENT SMOKER intermittenly [facility] [place] [facility] Jan 05, 2012 09:00 AM V1-PT DECLINES REF TO TOBACCO CESS PRGM [facility] [place] [facility] Jan 05, 2012 09:00 AM V1-PT DECLINES TOBACCO CESSATION MEDS [facility] [place] [facility] Jan 05, 2012 09:00 AM V1-PT THINKING ABOUT QUIT TOBACCO USE [facility] [place] [facility] Feb 17, 2011 09:52 AM V1-PT DECLINES TOBACCO CESSATION MEDS [place] [facility] [place] [facility] Feb 17, 2011 09:52 AM V1-PT THINKING ABOUT QUIT TOBACCO USE [facility] [place] [facility] Aug 13, 2010 11:31 AM QUIT TOBACCO USE IN PAST YEAR [place] [facility] [place] [facility] Feb 19, 2010 01:26 PM QUIT TOBACCO USE IN PAST YEAR DE [facility] [place] [facility] Sep 13, 2009 11:04 AM QUIT TOBACCO USE IN PAST YEAR [place] [facility] [place] [facility] Feb 05, 2009 08:29 AM V1-PT DECLINES REF TO TOBACCO CESS PRGM [facility] [place] [facility] Feb 05, 2009 08:29 AM V1-PT DECLINES TOBACCO CESSATION MEDS [facility] Feb 05, 2009 08:29 AM V1-PT THINKING ABOUT QUIT TOBACCO USE [facility] [facility] Aug 22, 2008 09:04 AM QUIT TOBACCO USE IN PAST YEAR [place] [facility] [place] [facility] Mar 12, 2008 10:40 AM V1-PT DECLINES REF TO TOBACCO CESS PRGM [place] [facility] [place] [facility] Mar 12, 2008 10:40 AM V1-PT DECLINES TOBACCO CESSATION MEDS [place] [facility] [place] [facility] Mar 12, 2008 10:40 AM V1-PT NOT INTERESTED IN QUIT TOBACCO USE [place] [facility]TR [facility] [place] [facility] Mar 08, 2008 09:37 AM CURRENT SMOKER smokes one pack a day for about 10 years ago. [place] CNTR [facility] Encounter Notes: All associated encounter notes This section contains the clinical notes associated to the Encounter. Date/Time Encounter Note(s) Provider Source Mar 28, 2024 03:12 PM TELEPHONE ENCOUNTER NOTE: LOCAL TITLE: TELEPHONE NOTE/SPECIALTY CLINIC STANDARD TITLE: TELEPHONE ENCOUNTER NOTE DATE OF NOTE: MAR 28, 2024@15:12 ENTRY DATE: MAR 28, 2024@15:12:06 AUTHOR: LORI QUEVEDO COSIGNER: URGENCY: STATUS: COMPLETED TELEPHONE NOTE/SPECIALTY CLINIC Has ADDENDA Vet lvm requesting cb from provider. Vet is 1 week post op and would like to discuss meds. Phone number on file confirmed. 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 She was discharged on 03/21 and surgeon prescribed 7 days worth of pain med. Per PDMP, received oxycodone 15mg #42 for 7 days supply on 03/21/24. She called today, requesting renewal of oxycodone 5mg IR and state will be out of medication today. She assume that the surgeon will manage her pain care post- op but will not see surgeon until Wednesday (04/04) or until a follow up appt with Dr. Solorio. She report has resume to taking buprenorphine at 2mg four times per day. /divya/ URBANO FOSTER, PHARM.D CLINICAL PHARMACIST PRACTITIONER Signed: 03/30/2024 11:48 LORI QUEVEDO [facility]
--- OUTSIDE RECORDS SUMMARY | 2024-07-05 03:45 | XMS_ITS | Encounter Summary ---
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 [facility] [place] Address [address] [place] [id number] Care Team Providers Care Child Center Assistant Name Role Phone ROMANA CASTILLO Primary Care [...] Garcia's Name Patient's Relationship to Policy Garcia [facility] (MEDICAID) [facility] May 14, 2009 [id number] SAMPLE,ROCCO MOORE PATIENT [facility] MEDICAID [facility] HUMAN [facility] May 14, 2009 [id number] SAMPLE,ROCCO MOORE PATIENT MEDICAID MEDICAID [facility] Jul 26, 2018 MEDICAI D [id number] SAMPLE,ROCCO MOORE PATIENT MEDICARE (WNR) MEDICARE (M) PART A November 24, 2015 PART A [id number] SAMPLE,ROCCO MOORE PATIENT MEDICARE (WNR) MEDICARE (M) PART B November 24, 2015 PART B [id number] ROCCO QUEZADA PATIENT Selected Encounter This section includes the information on record at [place] for the Encounter. Date/Time Encounter Type Encounter Description Reason Pro vider Source Feb 12, 2024 12:00 AM Outpatient Encounter EVENT (HISTORICAL) [...] 20 appointments. The data comes from all [facility]. Appointment Date/Time Appointment Type Appointme nt Facility Name Feb 14, 2024 11:00 AM AMBULATORY - PS[place]CHIATRY [place] [facility] [place] [facility] Mar 06, 2024 09:00 AM AMBULATORY - MEDICINE [facility] [place] [facility] Apr 03, 2024 11:30 AM AMBULATORY - MEDICINE [place] [facility] Apr 13, 2024 11:00 AM AMBULATORY PSYCHIATRY [place] [facility] [place] [facility] Apr 13, 2024 02:00 PM AMBULATORY - MEDICINE [facility] [place] [facility] Apr 13, 2024 03:00 PM AMBULATORY MEDICINE [place] C [facility] [place] [facility] May 02, 2024 11:00 AM AMBULATORY - MEDICINE [place] C [place] [facility] May 15, 2024 11:30 AM AMBULATORY PSYCHIATRY [place] [facility] [place] [facility] May 25, 2024 11:30 AM AMBULATORY - MEDICINE [place] C [place] [place] [facility] Jul 13, 2024 10:00 AM AMBULATORY MEDICINE [facility] [place] [facility] Active, Pending, and Scheduled Orders This section includes a listing of several types of active, pending, and scheduled orders, including clinic medications orders, diagnostic test orders, procedure orders and consult orders; where the start date of the order is 45 days before the date of the Encounter or 45 days after the date of theEncounter. The data comes from all [facility]. Test Date/Time Test Type Test Details Facility Name Jan 17, 2024 12:00 AM Laboratory - Chemistry Order BASIC METABOLIC PANEL (non-fasting) BLOOD (SST-SERUM) [facility] Jan 17, 2024 12:00 AM Laboratory - Chemistry Order LIPID PANEL, NON FASTING BLOOD (SST[facility]SERUM) [facility] Jan 17, 2024 12:00 AM Laboratory - Chemistry Order LIVER FUNCTION BLOOD (SST-SERUM) [facility] Jan 17, 2024 12:00 AM Laboratory - Chemistry Order TSH BLOOD (SST-SERUM) [facility] Jan 17, 2024 12:00 AM Laboratory - Chemistry Order MICROALBUMIN CREATININE RATIO PANEL URINE (RANDOM) [facility] Lab Results: +/- 30 days [...] Range Comment Mar 06, 2024 09:56 AM [facility] VITAMIN D (25-OH) Specimen Type: SERUM No comment entered. Ordering Provider: Sherrie CASTILLO Report Released Date/Time: Mar 06, 2024 09:36 AM Reporting Lab: [address] [address] Performing Lab: [address] [address] VITAMIN D (25-OH) 20 ng/mL 20-50 Mar 06, 2024 09:56 AM [facility] IRON & TIBC PANEL Specimen Type: SERUM No comment entered. Ordering Provider: Sherrie CASTILLO Report Released Date/Time: Mar 06, 2024 09:36 AM Reporting Lab: [address] [address] Performing Lab: [address] [address] TIBC 364 ug/dL 204-475 IRON 36 ug/dL L 40-160 Transferrin Saturation 9.9 L 20.0-50.0 Mar 06, 2024 09:56 AM [facility] FERRITIN Specimen Type: SERUM No comment entered. Ordering Provider: Sherrie CASTILLO Report Released Date/Time: Mar 06, 2024 09:36 AM Reporting Lab: [facility] [address] [facility] [address] Performing Lab: [facility] [address] FERRITIN 52 ng/mL 10-200 Mar 06, 2024 [...] Mar 06, 2024 09:36 AM Reporting Lab: [facility] [address] [facility] [address] Performing Lab: [address] [address] HEMOGLOBIN A1C 5.4 4.0-5.6 Mar 06, 2024 09:56 AM [facility] MICROALBUMIN CREATININE RATIO PANEL Specimen Type: URINE No comment entered. Ordering Provider: Sherrie CASTILLO Report Released Date/Time: Mar 06, 2024 09:36 AM Reporting Lab: [facility] [address] [facility] [address] Performing Lab: [facility] [address] MICROALBUMIN/C REATININE RATIO 251.1 mg/g H 0-29.9 MICROALBUMIN,Q UANTITATIVE 11.2 mg/dL RR UNAVAIL CREATININE URINE 44.60 mg/dL Mar 06, 2024 09:56 AM [facility] BASIC METABOLIC PANEL (non-fasting) Specimen Type: SERUM No comment entered. Ordering Provider: Sherrie CASTILLO Report Released Date/Time: Mar 06, 2024 09:36 AM Reporting Lab: [facility] [address] [facility] [address] Performing Lab: [address] [address] UREA NITROGEN 28 mg/dL H 7-25 GLUCOSE [...] Mar 06, 2024 09:36 AM Reporting Lab: [facility] [address] [facility] [address] Performing Lab: [address] [address] WBC 12.33 10*3/uL H 4.50-11.00 RBC 3.92 [...] took place. Date/Time Current Smoking Status Comment [facility] Mar 31, 2023 11:00 AM VA-TOBACCO QUIT 1 TO < 5 YRS [facility] Tobacco Use History This section includes a history of the smoking, or tobacco-related health factors, that were collected on or before the date of the Encounter. The data comes from the [place] facility where the Encounter took place. Date/Time Smoking Status/Tobac co Use Comment Facility Mar 31, 2023 11:00 AM VA-TOBACCO QUIT 1 TO < 5 YRS [place] [facility] [place] [facility] Mar 25, 2022 10:30 AM VA-TOBACCO NEVER USED [place] [facility] [place] [facility] Mar 19, 2021 02:00 PM VA-TOBACCO FORMER USER [place] [facility] [place] [facility] Mar 19, 2021 02:00 PM VA-TOBACCO QUIT < 1 YEAR [place] [facility] [place] [facility] Sep 20, 2018 11:24 AM VA-TOBACCO USE DECLINED TO ANSWER [place] [facility] [place] [facility] Oct 21, 2017 08:13 AM QUIT TOBACCO USE IN PAST YEAR [place] [facility] [place] [facility] Dec 30, 2016 08:28 AM QUIT TOBACCO USE 1-7 YEARS AGO [place] [facility] [place] [facility] Jun 04, 2016 08:43 AM QUIT TOBACCO USE 1-7 YEARS AGO [place] [facility] [place] [facility] May 17, 2015 08:45 AM QUIT TOBACCO USE 1-7 YEARS AGO quit 2 years ago. [place] [facility] [place] [facility] Jun 07, 2014 09:25 AM QUIT TOBACCO USE 1-7 YEARS AGO [place] [facility] [place] [facility] November 30, 2013 08:44 AM QUIT TOBACCO USE IN PAST YEAR [place] [facility] [place] [facility] May 22, 2013 10:10 AM QUIT TOBACCO USE IN PAST YEAR [place] [facility] [place] [facility] December 01, 2012 01:54 PM QUIT TOBACCO USE IN PAST YEAR [facility] [place] [facility] Jun 07, 2012 08:16 AM V1-PT DECLINES TOBACCO CESSATION MEDS [facility] [place] [facility] Jun 07, 2012 08:16 AM V1-PT THINKING ABOUT QUIT TOBACCO USE [facility] [place] [facility] Jan 05, 2012 09:00 AM CURRENT SMOKER intermittenly [facility] [place] [facility] Jan 05, 2012 09:00 AM V1-PT DECLINES REF TO TOBACCO CESS PRGM [facility] [place] [place] [facility] Jan 05, 2012 09:00 AM V1-PT DECLINES TOBACCO CESSATION MEDS [facility] [place] [facility] Jan 05, 2012 09:00 AM V1-PT THINKING ABOUT QUIT TOBACCO USE [facility] [place] [facility] Feb 17, 2011 09:52 AM V1-PT DECLINES TOBACCO CESSATION MEDS [facility] [place] [facility] Feb 17, 2011 09:52 AM V1-PT THINKING ABOUT QUIT TOBACCO USE [facility] [place] [facility] Aug 13, 2010 11:31 AM QUIT TOBACCO USE IN PAST YEAR [facility] [place] [facility] Feb 19, 2010 01:26 PM QUIT TOBACCO USE IN PAST YEAR [facility] [place] [facility] Sep 13, 2009 11:04 AM QUIT TOBACCO USE IN PAST YEAR [facility] Feb 05, 2009 08:29 AM V1-PT DECLINES REF TO TOBACCO CESS PR[facility] Feb 05, 2009 08:29 AM V1-PT DECLINES TOBACCO CESSATION [facility]S [facility] Feb 05, 2009 08:29 AM [...] Encounter. Date/Time Encounter Note(s) Provider Source Feb 12, 2024 12:00 AM NONVA NOTE: LOCAL TITLE: NON-[facility] STANDARD TITLE: NONVA NOTE DATE OF NOTE: FEB 12, 2024 ENTRY DATE: MAR 23, 2024@12:48:48 AUTHOR: NIKOLAS DALY COSIGNER: URGENCY: STATUS: COMPLETED VistA Imaging - Scanned Document SCANNED DOCUMENT SIGNATURE NOT REQUIRED Electronically Filed: 03/23/2024 by: MERCEDES DALY Visiting Professor MERCEDES DALY [facility]
--- OUTSIDE RECORDS SUMMARY | 2024-07-05 03:46 | XMS_ITS | Encounter Summary ---
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 [facility] [place] Address [address] [place] [address] Care Team Providers Care Market Research Manager Name Role Phone ROMANA CASTILLO Primary [...] Garcia's Name Patient's Relationship to Policy Garcia [facility] (MEDICAID) [place]ICAID [place] DE[place] HUMAN [facility] May 14, 2009 [id number] SAMPLE,ROCCO MOORE PATIENT [facility]ID [facility] May 14, 2009 [id number] SAMPLE,ROCCO MOORE PATIENT MEDICAID MEDICAID [facility] [place] Jul 26, 2018 MEDICAI D [id number] SAMPLE,ROCCO MOORE PATIENT MEDICARE (WNR) MEDICARE (M) PART A November 24, 2015 PART A [id number] SAMPLE,ROCCO MOORE PATIENT MEDICARE (WNR) MEDICARE (M) PART B November 24, 2015 PART B [id number] SAMPLE,ROCCO MOORE PATIENT Selected Encounter This section includes the information on record at [place] for the Encounter. Date/Time Encounter Type Encounter Description Reason Pro vider Source Apr 05, 2024 02:59 PM Outpatient Encounter ADMIN PAT ACTIVTIES (MASNONCT) [...] Appointment Type Appointme nt Facility Name Apr 13, 2024 11:00 AM AMBULATORY - PSYCHIATRY [place] [facility] Apr 13, 2024 02:00 PM AMBULATORY - MEDICINE [facility] [place] [facility] Apr 13, 2024 03:00 PM AMBULATORY - MEDICINE [facility] [place] [facility] May 02, 2024 11:00 AM AMBULATORY - MEDICINE [facility] [place] [facility] May 15, 2024 11:30 AM AMBULATORY - PSYCHIATRY [place] [facility] [place] [facility] May 25, 2024 11:30 AM AMBULATORY - MEDICINE [facility] [place] [facility] Jul 13, 2024 10:00 AM AMBULATORY - MEDICINE [facility] [place] [facility] Aug 24, 2024 11:00 AM AMBULATORY - MEDICINE [facility] Social History: Smoking Status (Most [...] Current Smoking Status Comment Rosana christian Mar 06, 2024 09:00 AM [place]-[facility]CO [facility] Tobacco Use History This section includes a history of the smoking, or tobacco-related health factors, that were collected on or before the date of the Encounter. The data comes from the [place] facility where the Encounter took place. Date/Time Smoking Status/Tobac co Use Comment Facility Mar 06, 2024 09:00 AM VA-TOBACCO QUIT 15 YRS OR MORE [place] [facility] [place] [facility] Mar 31, 2023 11:00 AM VA-TOBACCO FORMER USER [place] [facility] [place] [facility] Mar 31, 2023 11:00 AM VA-TOBACCO QUIT 1 TO < 5 YRS [place] [facility] [place] [facility] Mar 25, 2022 10:30 AM VA-TOBACCO NEVER USED [place] CNTR [place] [facility] Mar 19, 2021 02:00 PM VA-TOBACCO FORMER USER [place] [facility] [place] [facility] Mar 19, 2021 02:00 PM VA-TOBACCO QUIT < 1 YEAR [place] CNTR [place] [facility] Sep 20, 2018 11:24 AM VA-TOBACCO USE DECLINED TO ANSWER [place] CNTR [place] [facility] Oct 21, 2017 08:13 AM QUIT TOBACCO USE IN PAST YEAR [place] [facility] [place] [facility] Dec 30, 2016 08:28 AM QUIT TOBACCO USE 1-7 YEARS AGO [place]TR [place] [facility] Jun 04, 2016 08:43 AM QUIT TOBACCO USE 1-7 YEARS AGO [place] [place] [facility] May 17, 2015 08:45 AM QUIT TOBACCO USE 1-7 YEARS AGO quit 2 years ago. [place] [facility]TR [place] [facility] Jun 07, 2014 09:25 AM QUIT TOBACCO USE 1-7 YEARS AGO [place] [facility] [place] [facility] November 30, 2013 08:44 AM QUIT TOBACCO USE IN PAST YEAR [place] CNTR [place] [facility] May 22, 2013 10:10 AM QUIT TOBACCO USE IN PAST YEAR [place] [facility] [place] [facility] December 01, 2012 01:54 PM QUIT TOBACCO USE IN PAST YEAR [place] CNTR [place] [facility] Jun 07, 2012 08:16 AM V1-PT DECLINES TOBACCO CESSATION MEDS [place] CNTR [place] [facility] Jun 07, 2012 08:16 AM V1-PT THINKING ABOUT QUIT TOBACCO USE [place] CNT [place] [facility] Jan 05, 2012 09:00 AM CURRENT SMOKER intermittenly [place] [facility]TRL [place] [facility] Jan 05, 2012 09:00 AM V1-PT DECLINES REF TO TOBACCO CESS PRGM [place] [facility] [place] [facility] Jan 05, 2012 09:00 AM V1-PT DECLINES TOBACCO CESSATION MEDS [place] [facility] [place] [facility] Jan 05, 2012 09:00 AM V1-PT THINKING ABOUT QUIT TOBACCO USE [place] [facility] [place] [facility] Feb 17, 2011 09:52 AM V1-PT DECLINES TOBACCO CESSATION MEDS [place] [facility] [place] [facility] Feb 17, 2011 09:52 AM V1-PT THINKING ABOUT QUIT TOBACCO USE [place] [facility] [place] [facility] Aug 13, 2010 11:31 AM QUIT TOBACCO USE IN PAST YEAR [place] CNTR [place] [facility] Feb 19, 2010 01:26 PM QU[facility] [place] [facility] Sep 13, 2009 11:04 AM QUIT TOBACCO USE IN PAST YEAR [place] [facility] [place] [facility] Feb 05, 2009 08:29 AM V1-PT DECLINES REF TO TOBACCO CESS [facility] [place] [facility] Feb 05, 2009 08:29 AM V1-PT DECLINES TOBACCO CESSATION MEDS [facility] [place] [facility] Feb 05, 2009 08:29 AM V1-PT THINKING ABOUT QUIT [facility]AC[facility] [place] [facility] Aug 22, 2008 09:04 AM QUIT TOBACCO USE IN PAST YEAR [place] [facility] Mar 12, 2008 10:40 AM V1-PT DECLINES REF TO TOBACCO CESS PRGM [place] [facility] [place] [facility] Mar 12, 2008 10:40 AM V1-PT DECLINES TOBACCO CESSATION MEDS [place] [facility] [place] [facility] Mar 12, 2008 10:40 AM V1-PT NOT INTERESTED IN QUIT TOBACCO USE [place]TRL [place] [facility] Mar 08, 2008 09:37 AM CURRENT SMOKER smokes one pack a day for about 10 years ago. [facility] [place] [facility] Encounter Notes: All associated encounter notes This section contains the clinical notes associated to the Encounter. Date/Time Encounter Note(s) Provider Source Apr 05, 2024 03:24 PM ADDENDUM: LOCAL TITLE: Addendum STANDARD TITLE: ADDENDUM DATE OF NOTE: APR 05, 2024@15:24:24 ENTRY DATE: APR 05, 2024@15:24:26 AUTHOR: JOHN ARTEAGA COSIGNER: URGENCY: STATUS: COMPLETED please offer next available /isabella Arteaga RN Primary Care Staff Nurse Signed: 04/05/2024 15:24 Receipt Acknowledged By: 04/06/2024 08:56 /divya/ ROSA WOLFE Advanced Copy Preparer --- Original Document --- 04/05/24 CCC: SCHEDULING ADMINISTRATION: Patient Demographics Patient Name: REID QUEZADA Patient Primary Phone: [phone] Patient Primary Address: [address] [place] [id number] Patient : 1960 Patient Age: 64 Caller/Recipient Relation to Patient: Self Scheduling Cannot Complete Scheduling Action Reason: Not Authorized in Service Line Agreement Requested Service(s): Primary Care Patient Expects Callback: Yes Scheduling Note Reason: Cannot Complete Appointment Request Scheduling Note Comments: Patient was admitted to the [facility] hospital 04/02/24 for congestive heart failure she is being discharged today and is requesting a follow up apt with PCP. Open Request: None of the above IMPORTANT: This note was created by [facility] Clinical Contact Center staff. Please do not alert the staff member by adding them as a signer for future communications. Alerts are not monitored by this user. /es/ PRADEEP AWAN [facility]3] AMSA Signed: 04/05/2024 14:59 Receipt Acknowledged By: 04/05/2024 15:24 /isabella Aretaga RN Primary Care Staff Nurse for OLGA Rosa PETER 04/05/2024 15:24 /isabella Arteaga RN Primary Care Staff Nurse 04/06/2024 ADDENDUM STATUS: COMPLETED MSA lm to call back for appt. /divya/ ROSA WOLFE Advanced Copy Preparer Signed: 04/06/2024 08:56 JOHN ARTEAGA CNTRL WSTRN [place] [facility] Apr 05, 2024 02:59 PM ADMINISTRATIVE NOT E: LOCAL TITLE: CCC: SCHEDULING ADMINISTRATION STANDARD TITLE: ADMINISTRATIVE NOTE DATE OF NOTE: APR 05, 2024@14:59:41 ENTRY DATE: APR 05, 2024@14:59:41 AUTHOR: PRADEEP LEHMAN EXP COSIGNER: URGENCY: STATUS: COMPLETED CCC: SCHEDULING ADMINISTRATION Has ADDENDA Patient Demographics Patient Name: REID QUEZADA Patient Primary Phone: [phone] Patient Primary [address]: [address] [place] [id number] Patient : 1960 Patient Age: 64 Caller/Recipient Relation to Patient: Self Scheduling Cannot Complete Scheduling Action Reason: Not Authorized in Service Line Agreement Requested Service(s): Primary Care Patient Expects Callback: Yes Scheduling Note Reason: Cannot Complete Appointment Request Scheduling Note Comments: Patient was admitted to the [facility] hospital 04/02/24 for congestive heart failure she is being discharged today and is requesting a follow up apt with PCP. Open Request: None of the above IMPORTANT: This note was created by [facility] Clinical Contact Center staff. Please do not alert the staff member by adding them as a signer for future communications. Alerts are not monitored by this user. /divya/ PRADEEP [email or web address] CCC AMSA Signed: 04/05/2024 14:59 Receipt Acknowledged By: 04/05/2024 15:24 /isabella Arteaga RN Primary Care Staff Nurse for OLGA GREEN 04/05/2024 15:24 /isabella Arteaga RN Primary Care Staff Nurse 04/05/2024 ADDENDUM STATUS: COMPLETED please offer next available /isabella Arteaga RN Primary Care Staff Nurse Signed: 04/05/2024 15:24 Receipt Acknowledged By: 04/06/2024 08:56 /isabella WOLFE Advanced Copy Preparer 04/06/2024 ADDENDUM STATUS: COMPLETED MSA lm to call back for appt. /divya/ ROSA WOLFE Advanced Copy Preparer Signed: 04/06/2024 08:56 PRADEEP LEHMAN OR JACKIE WSTRN [facility]
--- OUTSIDE RECORDS SUMMARY | 2024-07-05 03:46 | XMS_ITS ---
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 Organization [place] Address [address] [place] [id number] Care Team Providers Care Scientific Database Curator Name Role Phone ROMANA CASTILLO Primary Care [...] [facility] (MEDICAID) [facility] May 14, 2009 [id number] SAMPLE,ROCCO MOORE PATIENT [facility]ICAID [facility] May 14, 2009 [id number] SAMPLE,ROCCO MOORE PATIENT MEDICAID MEDICAID [facility] Jul 26, 2018 MEDICAI D [id number] SAMPLE,ROCCO MOORE PATIENT MEDICARE (WNR) MEDICARE (M) PART A November 24, 2015 PART A [id number] [phone] SAMPLE,ROCCO MOORE PATIENT MEDICARE (WNR) MEDICARE (M) PART B November 24, 2015 PART B [id number] ROCCO QUEZADA PATIENT Selected Encounter This section includes the information on record at [place] for the Encounter. Date/Time Encounter Type Encounter Description Reason Pro vider Source Apr 05, 2024 02:10 PM Outpatient Encounter ENDOCRINOLOGY IHE Encounter Template [...] 13, 2024 11:00 AM AMBULATORY - [facility] [place] [facility] Apr 13, 2024 02:00 PM [facility] [place] [facility] Apr 13, 2024 03:00 PM [facility] [place] [facility] May 02, 2024 11:00 AM AMBULATORY - [facility]IC[facility] [place] [facility] May 15, 2024 11:30 AM AMBULATORY - PSYCHIATRY [place] [facility] [place] [facility] May 25, 2024 11:30 AM [facility] [place] [facility] Jul 13, 2024 10:00 AM AMBULATORY - MEDICINE [facility] [place] [facility] Aug 24, 2024 11:00 AM [facility]UL[facility]ORY [facility] Social History: Smoking Status (Most current) [...] Rosana christian Mar 06, 2024 09:00 AM [place]-TOBACCO QUIT [facility] YRS [facility] Tobacco Use History This section includes a history of the smoking, or tobacco-related health factors, that were collected on or before the date of the Encounter. The data comes from the [place] facility where the Encounter took place. Date/Time Smoking Status/Tobac co Use Comment Facility Mar 06, 2024 09:00 AM VA-TOBACCO QUIT 15 YRS OR MORE [place] [facility] [place] [facility] Mar 31, 2023 11:00 AM VA-TOBACCO FORMER USER [place] [facility] [place] [facility] Mar 31, 2023 11:00 AM VA-TOBACCO QUIT 1 TO < 5 YRS [place] [facility] [place] [facility] Mar 25, 2022 10:30 AM VA-TOBACCO NEVER USED [place] [facility] [place] [facility] Mar 19, 2021 02:00 PM VA-TOBACCO FORMER USER [place] [facility] [place] [facility] Mar 19, 2021 02:00 PM VA-TOBACCO QUIT < 1 YEAR ND [facility] [place] [facility] Sep 20, 2018 11:24 AM VA-TOBACCO USE DECLINED TO ANSWER ND [facility] [place] [facility] Oct 21, 2017 08:13 AM QUIT TOBACCO USE IN PAST YEAR [place] [facility] [place] [facility] Dec 30, 2016 08:28 AM QUIT TOBACCO USE 1-7 YEARS AGO [place] [facility] [place] [facility] Jun 04, 2016 08:43 AM QUIT TOBACCO USE 1-7 YEARS AGO [place] [facility] [place] [facility] May 17, 2015 08:45 AM QUIT TOBACCO USE 1-7 YEARS AGO quit 2 years ago. [place] [facility] [place] [facility] Jun 07, 2014 09:25 AM QUIT TOBACCO USE 1-7 YEARS AGO [place] [facility] [place] [facility] November 30, 2013 08:44 AM QUIT TOBACCO USE IN PAST YEAR ND [facility] [place] [facility] May 22, 2013 10:10 AM QUIT TOBACCO USE IN PAST YEAR ND [facility] [place] [facility] December 01, 2012 01:54 PM QUIT TOBACCO USE IN PAST YEAR ND [facility] [place] [facility] Jun 07, 2012 08:16 AM V1-PT DECLINES TOBACCO CESSATION MEDS [place] [facility] [place] [facility] Jun 07, 2012 08:16 AM V1-PT THINKING ABOUT QUIT TOBACCO USE [place] [facility] [place] [facility] Jan 05, 2012 09:00 AM CURRENT SMOKER [facility]mitten[facility] [place] [facility] Jan 05, 2012 09:00 AM V1-PT DECLINES REF TO TOBACCO CESS PRGM [facility] [place] [place] [facility] Jan 05, 2012 09:00 AM V1-PT DECLINES TOBACCO CESSATION MEDS [facility] [place] [facility] Jan 05, 2012 09:00 AM V1-PT THINKING ABOUT QUIT TOBACCO USE [facility] [place] [facility] Feb 17, 2011 09:52 AM V1-PT DECLINES TOBACCO CESSATION MEDS [facility] [place] [facility] Feb 17, 2011 09:52 AM V1-PT THINKING ABOUT QUIT TOBACCO USE [facility] [place] [facility] Aug 13, 2010 11:31 AM QUIT TOBACCO USE IN PAST YEAR [facility] [place] [facility] Feb 19, 2010 01:26 PM QUIT TOBACCO USE IN PAST YEAR [facility] [place] [facility] Sep 13, 2009 11:04 AM QUIT TOBACCO USE IN PAST YEAR [facility] [place] [facility] Feb 05, 2009 08:29 AM V1-PT DECLINES REF TO TOBACCO CESS PRGM [facility] [place] [place] [facility] Feb 05, 2009 08:29 AM V1-PT DECLINES TOBACCO CESSATION MEDS [facility] [place] [facility] Feb 05, 2009 08:29 AM V1-PT THINKING ABOUT QUIT TOBACCO USE [facility] [place] [facility] Aug 22, 2008 09:04 AM QUIT TOBACCO USE IN PAST YEAR [facility] [place] [facility] Mar 12, 2008 10:40 AM V1-PT DECLINES REF TO TOBACCO CESS PRGM [place] [facility] [place] [facility] Mar 12, 2008 10:40 AM V1-PT DECLINES TOBACCO CESSATION MEDS [facility] [place] [place] [facility] Mar 12, 2008 10:40 AM V1-PT NOT INTERESTED IN QUIT TOBACCO USE [place] [facility] [place] [facility] Mar 08, 2008 09:37 AM CURRENT SMOKER smokes one pack a day for about 10 years ago. [facility] [place] [facility] Encounter Notes: All associated encounter notes This section contains the clinical notes associated to the Encounter. Date/Time Encounter Note(s) Provider Source Apr 05, 2024 02:10 PM CLERICAL NOTE: LOCAL TITLE: APPOINTMENT NO SHOW STANDARD TITLE: CLERICAL NOTE DATE OF NOTE: APR 05, 2024@14:10 ENTRY DATE: APR 05, 2024@14:10:53 AUTHOR: GEORGE FLORES SA COSIGNER: URGENCY: STATUS: COMPLETED Patient Name: REID QUEZADA Patient SSN: [id number] Date and time of Appointment No show : 04/05/24 14:10 PATIENT PHONE - PHONE NUMBER [CELLULAR] - Patient's medical record was reviewed. Follow-up actions were determined and initiated: Please check/complete as applies: [ ]Telephoned Directly [ ]Re-scheduled for next available appt [ ]Sent a N0-show letter ( must call for appointment) [X]Other (Emergent/Overbook, etc.): Additional Comments: Per provider on teams, does not need to be rescheduled. Dispositioned RTC PID 10/25/2023. no showed, no longer necessary. Dispositioned on 04/05/2024. Future Clinic Visits 04/13/2024 11:00 CWM/NO/VVC/MHC/SHRUTHI 05/02/2024 11:00 NHM/RESPIRATORY CLINIC 05/10/2024 10:30 CWM/NO/PAIN 1 08/24/2024 11:00 CWM/NO/PACT 4 /es/ GEORGE FLORES Signed: 04/05/2024 14:14 GEORGE FLORES [place] [facility]
--- OUTSIDE RECORDS SUMMARY | 2024-07-05 03:47 | XMS_ITS ---
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 Organization [place] Address [address] [place] [address] Care Team Providers Care Showcase Trimmer Name Role Phone ROMANA CASTILLO Primary Care [...] Garcia's Name Patient's Relationship to Policy Garcia [facility] (MEDICAID) [facility] May 14, 2009 [id number] SAMPLE,ROCCO MOORE PATIENT [facility] MEDICAID [facility]AN [facility] May 14, 2009 [id number] SAMPLE,ROCCO MOORE PATIENT MEDICAID MEDICAID [facility] [place] Jul 26, 2018 MEDICAI D [id number] SAMPLE,ROCCO MOORE PATIENT MEDICARE (WNR) MEDICARE (M) PART A November 24, 2015 PART A [id number] SAMPLE,ROCCO MOORE PATIENT MEDICARE (WNR) MEDICARE (M) PART B November 24, 2015 PART B [id number] [phone] ROCCO QUEZADA PATIENT Selected Encounter This section includes the information on record at [place] for the Encounter. Date/Time Encounter Type Encounter Description Reason Pro vider Source Apr 13, 2024 11:00 AM Outpatient Encounter [facility] Encounter Template Text not used by [place] Plan of Treatment: Future Appointments (+ 6 months) and Future Tests (+/- 45 days) The Plan of Treatment section includes future care activities for the patient from all [place] [facility]. This section includes future appointments and future orders which are active, pending or scheduled. Future Appointments This section includes appointments that were scheduled to occur 6 months from the date of the Encounter, up to a maximum of 20 appointments. The data comes from all [place] treatment facilities. Appointment Date/Time Appointment Type Appointme nt Facility Name May 02, 2024 11:00 AM AMBULATORY - MEDIC[facility] May 15, 2024 11:30 AM [facility] May 25, 2024 11:30 AM AMBULATORY - MEDICINE [facility] [place] [facility] Jul 13, 2024 10:00 AM AMBULATORY - MEDICINE [facility] [place] [facility] Aug 24, 2024 11:00 AM [facility]UL[facility] Vital Signs: All taken on the encounter date This section contains inpatient and outpatient Vital Signs collected on the date of the Encounter. Date/Time Temperature Pulse Blood Pressure Respiratory Rate SP02 Pain Height Weight Body Mass Index Source Apr 13, 2024 02:12 PM 97 63 118/66 19 [facility] Social History: Smoking Status (Most current) [...] Rosana christian Mar 06, 2024 09:00 AM [place]-TOBACCO QUIT 15 YRS OR MORE [facility] Tobacco Use History This section includes a history of the smoking, or tobacco-related health factors, that were collected on or before the date of the Encounter. The data comes from the [place] facility where the Encounter took place. Date/Time Smoking Status/Tobac co Use Comment Facility Mar 06, 2024 09:00 AM VA-TOBACCO QUIT 15 YRS OR MORE [place] [facility] [place] [facility] Mar 31, 2023 11:00 AM VA-TOBACCO FORMER USER [place] [facility] [place] [facility] Mar 31, 2023 11:00 AM VA-TOBACCO QUIT 1 TO < 5 YRS [place] [facility] [place] [facility] Mar 25, 2022 10:30 AM VA-TOBACCO NEVER USED [place] [facility] [place] [facility] Mar 19, 2021 02:00 PM VA-TOBACCO FORMER USER [place] [facility] [place] [facility] Mar 19, 2021 02:00 PM VA-TOBACCO QUIT < 1 YEAR [place] [facility] [place] [facility] Sep 20, 2018 11:24 AM VA-TOBACCO USE DECLINED TO ANSWER [place] [facility] [place] [facility] Oct 21, 2017 08:13 AM QUIT TOBACCO USE IN PAST YEAR [place] [facility] [place] [facility] Dec 30, 2016 08:28 AM QUIT TOBACCO USE 1-7 YEARS AGO [place] [facility] [place] [facility] Jun 04, 2016 08:43 AM QUIT TOBACCO USE 1-7 YEARS AGO [place] [facility] [place] [facility] May 17, 2015 08:45 AM QUIT TOBACCO USE 1-7 YEARS AGO quit 2 years ago. [place] [facility] [place] [facility] Jun 07, 2014 09:25 AM QUIT TOBACCO USE 1-7 YEARS AGO [place] [facility] [place] [facility] November 30, 2013 08:44 AM QUIT TOBACCO USE IN PAST YEAR [place] [facility] [place] [facility] May 22, 2013 10:10 AM QUIT TOBACCO USE IN PAST YEAR [place] [facility] [place] [facility] December 01, 2012 01:54 PM QUIT TOBACCO USE IN PAST YEAR [place] [facility] [place] [facility] Jun 07, 2012 08:16 AM V1-PT DECLINES TOBACCO CESSATION MEDS [place] [facility] [place] [facility] Jun 07, 2012 08:16 AM V1-PT THINKING ABOUT QUIT TOBACCO USE [place] [facility] [place] [facility] Jan 05, 2012 09:00 AM CURRENT SMOKER intermittenly [facility] [place] [facility] Jan 05, 2012 09:00 AM V1-PT DECLINES REF TO TOBACCO CESS PRGM [place] [facility] [place] [facility] Jan 05, 2012 09:00 AM V1-PT DECLINES TOBACCO CESSATION MEDS [facility] [place] [facility] Jan 05, 2012 09:00 AM V1-PT THINKING ABOUT QUIT TOBACCO USE [facility] [place] [facility] Feb 17, 2011 09:52 AM V1-PT DECLINES TOBACCO CESSATION MEDS [facility] [place] [facility] Feb 17, 2011 09:52 AM V1-PT THINKING ABOUT QUIT TOBACCO USE [facility] [place] [facility] Aug 13, 2010 11:31 AM QUIT TOBACCO USE IN PAST YEAR [place] [facility] [place] [facility] Feb 19, 2010 01:26 PM QUIT TOBACCO [facility] [place] [facility] Sep 13, 2009 11:04 AM QUIT TOBACCO USE IN [facility]ST [facility] [place] [facility] Feb 05, 2009 08:29 AM V1-PT DECLINES REF TO TOBACCO CESS PRGM [facility] [place] [facility] Feb 05, 2009 08:29 AM V1-PT DECLINES TOBACCO CESSATION MEDS [facility] [place] [facility] Feb 05, 2009 08:29 AM V1-PT THINKING ABOUT QUIT TOBACCO USE [place] [facility] [place] [facility] Aug 22, 2008 09:04 AM QUIT TOBACCO USE IN PAST YEAR HI [facility] [place] [facility] Mar 12, 2008 10:40 AM V1-PT DECLINES REF TO TOBACCO CESS PRGM [place] [facility] [place] [facility] Mar 12, 2008 10:40 AM V1-PT DECLINES TOBACCO CESSATION MEDS [place] [facility] [place] [facility] Mar 12, 2008 10:40 AM V1-PT NOT INTERESTED IN QUIT TOBACCO USE [place] [facility] [place] [facility] Mar 08, 2008 09:37 AM CURRENT SMOKER smokes one pack a day for about 10 years ago. [facility] [facility] Encounter Notes: All associated encounter notes This section contains the clinical notes associated to the Encounter. Date/Time Encounter Note(s) Provider Source Apr 13, 2024 10:59 AM ACCOUNTING OF DISCLOSURES NOTE: LOCAL TITLE: STATE PRESCRIPTION DRUG MONITORING PROGRAM STANDARD TITLE: ACCOUNTING OF DISCLOSURES NOTE DATE OF NOTE: APR 13, 2024@10:59:22 ENTRY DATE: APR 13, 2024@10:59:22 AUTHOR: MATEO SCOTT EXP COSIGNER: URGENCY: STATUS: COMPLETED This PDMP query was submitted by Mateo Scott MD, MD. The clinical justification for this PDMP query is to review controlled substances prescribed outside of the [facility], and any additional information that may become available, as an important component of standard clinical care, and in accordance with [facility] policy. Patient information was shared with the PDMP [employer] [place]. No prescription(s) for controlled substances outside the [facility] were found in the last 90 days. /divya/ MATEO SCOTT JR, MD STAFF PSYCHIATRIST Signed: 04/13/2024 13:04 MATEO SCOTT MD [facility]
--- OUTSIDE RECORDS SUMMARY | 2024-07-05 03:47 | XMS_ITS | Encounter Summary ---
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 [place] [facility] [place] [facility] [place] [facility] [place] Address [address] [place] [address] [address] Care [address] In Waiter/Waitress Name Role Phone ROMANA CASTILLO Primary Care [...] Patient's Relationship to Policy Garcia [facility] (MEDICAID) MEDICAID [facility] May 14, 2009 [id number] SAMPLE,[place] MOORE PATIENT [facility] MEDICAID [facility] May 14, 2009 [id number] SAMPLE,RO[place]ORE PATIENT MEDICAID MEDICAID [facility] [place] [facility] [place] Jul 26, 2018 MEDICAI D [id number] SAMPLE,ROCCO MOORE PATIENT MEDICARE (WNR) MEDICARE (M) PART A November 24, 2015 PART A [id number] SAMPLE,ROCCO MOORE PATIENT MEDICARE (WNR) MEDICARE (M) PART B November 24, 2015 PART B [id number] SAMPLE,ROCCO MOORE PATIENT Selected Encounter This section includes the information on record at [place] for the Encounter. Date/Time Encounter Type Encounter Description Reason Provider Source Apr 13, 2024 02:00 PM OFFICE O/P EST MOD 30 MIN PRIMARY CARE/MEDICINE ICD-10-CM I50.9 Heart failure, unspecified Sherrie CASTILLO Edwin Encounter Template Text not used by [place] Assessments - Encounter Diagnoses This section includes the primary and secondary diagnoses documented for the Encounter. Date/Time Primary/Secondary Diagnosis Diagnosis Name Provider Source Apr 13, 2024 03:10 PM PRIMARY Heart failure, unspecified ROMANA CASTILLO [place] [facility] [place] [facility] Apr 13, 2024 03:10 PM SECONDARY Anemia, unspecified ROMANA CASTILLO [place] [facility] [place] [facility] Apr 13, 2024 03:10 PM SECONDARY Anxiety disorder, unspecified ROMANA CASTILLO [place] [facility] [place] [facility] Apr 13, 2024 03:10 PM SECONDARY Essential (primary) hypertension ROMANA CASTILLO [place] [facility] [place] [facility] Apr 13, 2024 03:10 PM SECONDARY Morbid (severe) obesity with alveolar hypoventilation ROMANA CASTILLO [place] [facility] [place] [facility] Plan of Treatment: Future Appointments (+ [...] 02, 2024 11:00 AM AMBULATORY - MEDICINE [place] [facility] [place] [facility] May 15, 2024 11:30 AM AMBULATORY - PSYCHIATRY [place] [facility] [place] [facility] May 25, 2024 11:30 AM AMBULATORY - MEDICINE [place] [facility] [place] [facility] Jul 13, 2024 10:00 AM AMBULATORY - MEDICINE [place] [facility] [facility] Aug 24, 2024 11:00 AM [facility] [place] [facility] Vital Signs: All taken on the encounter date This section contains inpatient and outpatient Vital Signs collected on the date of the Encounter. Date/Time Temperature Pulse Blood Pressure Respiratory Rate SP02 Pain Height Weight Body Mass Index Source Apr 13, 2024 02:12 PM 97 63 118/66 19 95 [place] [facility] [place] [facility] Social History: [...] place. Date/Time Current Smoking Status Comment Facil [facility] Mar 06, 2024 09:00 AM VA-TOBACCO QUIT 15 YRS OR [facility] Tobacco Use History This section includes a history of the smoking, or tobacco-related health factors, that were collected on or before the date of the Encounter. The data comes from the [place] facility where the Encounter took place. Date/Time Smoking Status/Tobac co Use Comment Facility Mar 06, 2024 09:00 AM VA-TOBACCO QUIT 15 YRS OR MORE [place] [facility] [place] [facility] Mar 31, 2023 11:00 AM VA-TOBACCO FORMER USER [place] [facility] [place] [facility] Mar 31, 2023 11:00 AM VA-TOBACCO QUIT 1 TO < 5 YRS [place] [facility] [place] [facility] Mar 25, 2022 10:30 AM VA-TOBACCO NEVER USED [place] [facility] [place] [facility] Mar 19, 2021 02:00 PM VA-TOBACCO FORMER USER [place] [facility] [place] [facility] Mar 19, 2021 02:00 PM VA-TOBACCO QUIT < 1 YEAR [place] [facility] [place] [facility] Sep 20, 2018 11:24 AM VA-TOBACCO USE DECLINED TO ANSWER [place] [facility] [place] [facility] Oct 21, 2017 08:13 AM QUIT TOBACCO USE IN PAST YEAR [place] [facility] [place] [facility] Dec 30, 2016 08:28 AM QUIT TOBACCO USE 1-7 YEARS AGO [place] [facility] [place] [facility] Jun 04, 2016 08:43 AM QUIT TOBACCO USE 1-7 YEARS AGO [place] [facility] [place] [facility] May 17, 2015 08:45 AM QUIT TOBACCO USE 1-7 YEARS AGO quit 2 years ago. [place] [facility] [place] [facility] Jun 07, 2014 09:25 AM QUIT TOBACCO USE 1-7 YEARS AGO [facility] [place] [facility] November 30, 2013 08:44 AM QUIT TOBACCO USE IN PAST YEAR [place] [facility] [place] [facility] May 22, 2013 10:10 AM QUIT TOBACCO USE IN PAST YEAR [facility] [place] [facility] December 01, 2012 01:54 PM QUIT TOBACCO USE IN PAST [facility]AR [facility] [place] [facility] Jun 07, 2012 08:16 AM V1-PT DECLINES TOBACCO CESSATION MEDS [facility] [place] Jun 07, 2012 08:16 AM V1-PT THINKING ABOUT QUIT TOBACCO USE [facility] [place] [facility] Jan 05, 2012 09:00 AM CURRENT SMOKER intermittenly [facility] Jan 05, 2012 09:00 AM V1-PT DECLINES REF [facility] [place] Jan 05, 2012 09:00 AM V1-PT DECLINES TOBACCO CESSATION MEDS [facility] [place] [facility] Jan 05, 2012 09:00 AM V1-PT THINKING ABOUT QUIT TOBACCO USE [facility] [place] [facility] Feb 17, 2011 09:52 AM V1-PT DECLINES TOBACCO CESSATION MEDS [facility] [place] [facility] Feb 17, 2011 09:52 AM V1-PT THINKING ABOUT QUIT TOBACCO USE [facility] [place] [facility] Aug 13, 2010 11:31 AM QUIT TOBACCO USE IN PAST YEAR [facility] [place] [facility] Feb 19, 2010 01:26 PM QUIT TOBACCO USE IN PAST YEAR [facility] [place] [facility] Sep 13, 2009 11:04 AM QUIT TOBACCO USE IN PAST YEAR [facility] [place] [facility] Feb 05, 2009 08:29 AM V1-PT DECLINES REF TO TOBACCO CESS [facility] Feb 05, 2009 08:29 AM V1-PT DECLINES TOBACCO CESSATION MEDS [facility] Feb 05, 2009 08:29 AM V1-PT THINKING ABOUT QUIT TOBACCO USE [facility] Aug 22, 2008 09:04 AM QUIT TOBACCO USE IN PAST YEAR [facility] Mar 12, 2008 10:40 AM V1-PT DECLINES REF TO TOBACCO CESS [facility] Mar 12, 2008 10:40 AM V1-PT DECLINES TOBACCO CESSATION MEDS [facility] Mar 12, 2008 10:40 AM V1-PT NOT INTERESTED IN QUIT TOBACCO USE [facility] Mar 08, 2008 09:37 AM CURRENT SMOKER smokes one pack a day for about 10 years ago. [facility] Encounter Notes: All associated encounter notes This section contains the clinical notes associated to the Encounter. Date/Time Encounter Note(s) Provider Source Apr 13, 2024 12:18 PM PHYSICIAN NOTE: LOCAL TITLE: MD NOTE STANDARD TITLE: PHYSICIAN NOTE DATE OF NOTE: APR 13, 2024@12:18 ENTRY DATE: APR 13, 2024@12:18:33 AUTHOR: KATY CASTILLO EXP COSIGNER: URGENCY: STATUS: COMPLETED HISTORY OF PRESENT ILLNESS: REID DAMIEN, is a 64 yo WHITE FEMALE [place] who presents at the [place] [facility]. multiple problems HPI. this vet had episode of CHF/hospitalized at [facility]-disch notes reviewed. she responded to diuretics, bronchodilators and Oxygen. vet denied any angina. She also had undergone procedure on right thigh and she has had anemia for past year-likely multifactorial-(Crohns, multiple procedures/chronic illness). she denies any blood loss per rectum. Vet has suboptimal control of BP /hosp readings in past week 143/63, 158/66. She has long hx of obesity and wants nutrition consult as she says she eats only 1500 calories per day. VET PLANS TO SWITCH TO COMMUNITY PCP SHE REPORTS FINANCIAL ISSUES ARE A PROBLEM W/ [facility] AT THIS TIME. Active problems - Computerized Problem List is the source for the followin. Simple renal cyst 2. Microalbuminuria 3. Limited mobility 4. Obesity 5. Haematoma of lower leg 6. Osteomyelitis of right femur 7. Myocardial infarction 8. Long-term current use of anticoagulant 9. Chronic pain 10. CCF - Congestive cardiac failure 11. AF- Atrial Fibrillation (SCT 00638201) 12. Drug abuse 13. Extreme obesity with alveolar hypoventilation 14. Impaired fasting glucose 15. Pulmonary hypertension 16. COPD - Chronic obstructive pulmonary disease 17. Polycythemia vera 18. Anxiety disorder 19. Edema 20. Osteoarthritis of knee 21. Opioid dependence (SNOMED CT 23632409) 22. Microscopic hematuria 23. Tobacco dependence, continuous (SNOMED CT 892226601) 24. Sleep apnea (SNOMED CT 48719042) 25. Varicose Veins 26. Hysterectomy 27. Hypertension (SNOMED CT 43672728) 28. Gastroesophageal Reflux Disorder 29. Inflammatory bowel disease 30. Injury to the Muscles of the Hand (Group IX Function: Forearm Muscles) (ICD- HISTORY: PERIOD OF SERVICE - [employer] FROM Jul TO Oct COMBAT SERVICE INDICATED: No SERVICE CONNECTED % - NONE FOUND VITAL SIGNS: Temperature 97.9 F [36.6 C] (09/08/2023 13:03) Blood Pressure 140/75 (03/06/2024 09:26) Pulse 78 (03/06/2024 09:26) Respiration 20 (03/06/2024 09:26) Pain 6 (09/08/2023 13:03) BMI BMI: 48.2 Weight 280 lb [127.01 kg] (06/10/2023 07:34) Pulse Oximetry 98% (03/06/2024 09:26) Review of Systems: CONSTITUTIONAL: No fever, no loss of appetite ENT: No sore throat, no cough CARDIOVASCULAR: No chest pain, no palpitations RESPIRATORY: No SOB, no wheezing GASTROINTESTINAL: No abd pain, no N/V/D, no change in stool EXAMINATION General: chronically ill-appearing/ morbidly obese female/ seated in power scooter/ no resp distress Mental Status: Alert and oriented x 3 Head: Normocephalic. Lungs: CTA. no crackles, no wheezing CV: RRR. No murmur DATA REVIEW >> MEDICATIONS Reviewed Today (VA [...] TONGUE FOUR Expr:05-19-24 TIMES A DAY 3) CHOLECALCIF 50MCG (D3-2,000UNIT) TAB ACTIVE (S) Issu:03-06-24 Qty: 100 for 90 days Sig: TAKE ONE Refills: 2 Last:05-25-24 TABLET BY MOUTH ONCE DAILY FOR VITAMIN Expr:03-07-25 SUPPLEMENTATION 4) CLONAZEPAM 0.5MG TAB Qty: 120 for 30 ACTIVE Issu:02-14-24 days Sig: TAKE TWO TABLETS BY MOUTH Refills: 1 Last:04-13-24 ONCE DAILY AND TAKE ONE TABLET TWICE Expr:08-16-24 DAILY NEEDED 5) DILTIAZEM (EQV-TIAZAC) 240MG 24HR CAP ACTIVE Issu:09-08-23 Qty: 90 for 90 days Sig: TAKE ONE Refills: 1 Last:04-23-24 CAPSULE BY MOUTH ONCE DAILY Expr:09-08-24 6) FERROUS GLUCONATE 324MG TAB Qty: 100 ACTIVE Issu:03-06-24 for 90 days Sig: TAKE ONE TABLET BY Refills: 3 Last:03-06-24 MOUTH ONCE DAILY TO SUPPLEMENT IRON Expr:03-07-25 7) LISINOPRIL 30MG TAB Qty: 180 for 90 ACTIVE Issu:01-17-24 days Sig: TAKE TWO TABLETS BY MOUTH Refills: 2 Last:04-13-24 ONCE DAILY TO CONTROL BLOOD PRESSURE Expr:01-17-25 8) OXYCODONE HCL 5MG TAB NOT SA Qty: ACTIVE Issu:03-30-24 112 for 14 days Sig: TAKE TWO TABLETS Refills: 0 Last:03-30-24 BY MOUTH FOUR TIMES DAILY NEEDED Expr:04-29-24 NEXT FILL 04/17 9) TEMAZEPAM 30MG CAP Qty: 30 for 30 days ACTIVE Issu:01-03-24 Sig: TAKE ONE CAPSULE BY MOUTH AT Refills: 1 Last:04-13-24 BEDTIME NEEDED FOR SLEEP Expr:07-05-24 Start Date Active Non-VA Medications Refills Expiration [...] Sig: ACTIVE 0.5ML INTRAMUSCULARLY NOW 6) Non-VA [id number]/VILANTERO L25MCG ACTIVE 30D INH Si INHALATION BY MOUTH ONCE DAILY 15 Total Medications >> LABS REVIEWED TODAY: CHEM 7 TREND LAB CUMULATIVE SELECTED Collection DT Spec GLUCOSE BUN CREATIN Sodium K+/Pot CL CO2 03/06/2024 09:56 SERUM 130 H 28 H 1.00 142 4.8 97 L 33 H 04/05/2023 10:08 SERUM 1.03 08/27/2022 12:05 SERUM 116 H 32 H 1.05 139 4.7 102 29 10/16/2021 14:15 SERUM 129 H 16 0.76 143 3.8 93 L 43 H* 03/19/2021 15:39 SERUM 143 H 15 1.18 144 3.7 94 L 42 H* Collection DT Spec eGFR 03/09/2008 07:00 SERUM >60 LAB CUMULATIVE SELECTED 2 No selection items chosen for this component. CHEM 7 Results Collection DT Spec Sodium K+/Pot CL CO2 GLUCOSE BUN eGFR 03/06/2024 09:56 SERUM 142 4.8 97 L 33 H 130 H 28 H 08/27/2022 12:05 SERUM 139 4.7 102 29 [...] WBC RBC HGB HCT MCV MCH PLT 03/06/2024 09:56 BLOOD 12.33 H 3.92 L 9.7 L 33.7 L 86.0 24.7 L 280 04/05/2023 10:08 BLOOD 8.38 3.95 9.7 L 34.0 L 86.1 24.6 L 254 08/28/2021 15:36 BLOOD 8.17 4.47 11.0 L 37.3 83.4 24.6 L 247 03/19/2021 15:39 BLOOD 8.68 3.63 L 9.5 L 31.1 L 85.7 26.2 236 06/02/2018 10:44 BLOOD 8.60 4.45 13.0 39.7 89.2 29.2 213 HEMOGLOBIN A1C TREND Collection DT Spec HGBA1c 03/06/2024 09:56 BLOOD 5.4 03/19/2021 15:39 BLOOD 5.6 06/02/2018 10:44 BLOOD 6.1 H 03/22/2017 07:49 BLOOD 6.8 H 08/13/2016 10:31 BLOOD 6.8 H LIPID PANEL TREND Collection DT Spec CHOL HDL CHO/HDL LDL-c TRIG 03/19/2021 15:39 SERUM 233 H 58 4.0 146 H 143 06/02/2018 10:44 SERUM 168 49 3.4 104 74 03/22/2017 07:49 SERUM 195 58 3.4 119 92 08/13/2016 10:31 SERUM 222 H 71 H 3.1 136 H 76 01/06/2016 12:43 SERUM 195 46 4.2 135 H 69 UREA NITROGEN 03/06/24 09:56 28 H CREATININE-EGFR 03/06/24 09:56 1.00 LIVER PANEL TREND Collection DT Spec AST [...] Collection DT Spec B12 SR- HCT Ferrit IRON TIBC 03/06/2024 09:56 SERUM 52 03/06/2024 09:56 SERUM 36 L 364 03/06/2024 09:56 BLOOD 33.7 L 04/05/2023 10:08 BLOOD 34.0 L 08/28/2021 15:36 BLOOD 37.3 PT INR TREND Collection DT Spec INR PT 03/19/2021 15:39 PLASM 1.4 16.0 H >> HEALTH MAINTENANCE PREVENTIVE MEDICINE GOALS Info Only: [facility] Video Connect Capable DUE NOW Homelessness/Food Insecurity Screen Mar 31 Cervical Cancer Screening Dec 24 Follow Up Colonoscopy December 14 Home Telehealth (CCHT) Referral DUE NOW Lipid Screening DUE NOW Mental Health Treatment Plan DUE NOW Influenza Immunization DUE NOW Mammogram Screening Dec 24 Medication Reconciliation DUE NOW COVID-19 Immunization DUE NOW HTN Assess for Elevated BP>=140/90 DUE NOW Offer Overdose Education and Naloxone DUE NOW Herpes Zoster (Shingles) Vaccine DUE NOW Opioid Drug Screening V2 Apr 05 RHS Screen DUE NOW Eye Care At-Risk Screen DUE NOW Hepatitis A Vaccine for High Risk DUE NOW (Optional) Whole Health Documentation DUE NOW ASSESSMENT/PLAN: 1. CHF 2. HTN 3. anemia 4. obesity 5. anxiety Plan 1. continue diuretics and SOPHIA 2. vet prefers NOT to have [place] community cardio consult/see HPI for details 3. continue diltiazem 4. vet will d/w community PCP plan for anemia/whether she has blood loss per Crohns or Anemia of chronic dz 5. nutrition consult 6. communication w/ [facility]/ vet asked PCP to write 3 day supply of clonazepam LAB ORDERS FOR NEXT APPT. spent in [...] of active outpatient prescriptions dispensed from this [facility] (local) and dispensed from another VA or [...] provider. /divya/ ROMANA CASTILLO MD PHYSICIAN Signed: 04/13/2024 15:10 FAYE CASTILLO [place] [facility]
--- OUTSIDE RECORDS SUMMARY | 2024-07-05 03:47 | XMS_ITS | Encounter Summary ---
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 MEDICAID [facility] May 14, 2009 [id number] SAMPLE,ROCCO MOORE PATIENT MEDICAID MEDICAID [facility] Jul 26, 2018 MEDICAI D [id number] SAMPLE,ROCCO MOORE PATIENT MEDICARE (WNR) MEDICARE (M) PART A November 24, 2015 PART A [id number] [phone] SAMPLE,ROCCO MOORE PATIENT MEDICARE (WNR) MEDICARE (M) PART B November 24, 2015 PART B [id number] SAMPLEROCCO PATIENT Selected Encounter This section includes the information on record at OR for the Encounter. Date/Time Encounter Type Encounter Description Reason Provider Source Apr 13, 2024 11:00 AM Outpatient Encounter TELEPHONE MH ICD-10-CM F41.9 Anxiety disorder, unspecified REHAN HAWKINS MD IHE Encounter Template Text not used by OR Assessments - Encounter Diagnoses This section includes the primary and secondary diagnoses documented for the Encounter. Date/Time Primary/Secondary Diagnosis Diagnosis Name Provider Source Apr 13, 2024 11:00 AM PRIMARY Anxiety disorder, unspecified [facility]RON HAWKINS MD [facility] Apr 13, 2024 11:00 AM SECONDARY Insomnia, unspecified [facility] HAWKINS [facility] Plan of Treatment: Future Appointments [...] 02, 2024 11:00 AM AMBULATORY - [facility]IC[facility] May 15, 2024 11:30 AM [facility] May 25, 2024 11:30 AM AMBULATORY - MEDICINE [facility] [place] [facility] Jul 13, 2024 10:00 AM AMBULATORY - MEDICINE [facility] [place] [facility] Aug 24, 2024 11:00 AM AMBULATORY - [facility] Vital Signs: All taken on the encounter date This section contains inpatient and outpatient Vital Signs collected on the date of the Encounter. Date/Time Temperature Pulse Blood Pressure Respiratory Rate SP02 Pain Height Weight Body Mass Index Source Apr 13, 2024 02:12 PM 97 63 118/66 19 95 [facility] Social History: Smoking Status (Most [...] took place. Date/Time Current Smoking Status Comment [facility] it Mar 06, 2024 09:00 AM VA-TOBACCO FORMER USER [facility] [place] [facility] Tobacco Use History This section includes a history of the smoking, or tobacco-related health factors, that were collected on or before the date of the Encounter. The data comes from the [place] facility where the Encounter took place. Date/Time Smoking Status/Tobac co Use Comment Facility Mar 06, 2024 09:00 AM VA-TOBACCO QUIT 15 YRS OR MORE [place] [facility] [place] [facility] Mar 31, 2023 11:00 AM VA-TOBACCO FORMER USER [place] [facility] [place] [facility] Mar 31, 2023 11:00 AM VA-TOBACCO QUIT 1 TO < 5 YRS [place] [facility] [facility] Mar 25, 2022 10:30 AM VA-TOBACCO NEVER USED [place] [facility] [place] [facility] Mar 19, 2021 02:00 PM VA-TOBACCO FORMER USER [place] [facility] [place] [facility] Mar 19, 2021 02:00 PM VA-TOBACCO QUIT < 1 YEAR [place] [facility] [place] [facility] Sep 20, 2018 11:24 AM VA-TOBACCO USE DECLINED TO ANSWER [place] [facility] [place] [facility] Oct 21, 2017 08:13 AM QUIT TOBACCO USE IN PAST YEAR [place] [place] [facility] Dec 30, 2016 08:28 AM QUIT TOBACCO USE 1-7 YEARS AGO [place] [facility] [facility] Jun 04, 2016 08:43 AM QUIT TOBACCO USE 1-7 YEARS AGO [place] [facility] May 17, 2015 08:45 AM QUIT TOBACCO USE 1-7 YEARS AGO quit 2 years ago. [place] [facility] [place] [facility] Jun 07, 2014 09:25 AM QUIT TOBACCO USE 1-7 YEARS AGO [place] [facility] November 30, 2013 08:44 AM QUIT TOBACCO USE IN PAST YEAR [place] [facility] May 22, 2013 10:10 AM QUIT TOBACCO USE IN PAST YEAR [facility] [place] [facility] December 01, 2012 01:54 PM QUIT TOBACCO USE IN PAST YEAR [facility] [place] [facility] Jun 07, 2012 08:16 AM V1-PT DECLINES TOBACCO CESSATION MEDS [facility] [place] [facility] Jun 07, 2012 08:16 AM V1-PT THINKING ABOUT QUIT TOBACCO USE [facility] [place] [facility] Jan 05, 2012 09:00 AM CURRENT SMOKER intermittenly [facility] [place] [facility] Jan 05, 2012 09:00 AM V1-PT DECLINES REF TO TOBACCO CESS PRGM [place] [facility] Jan 05, 2012 09:00 AM V1-PT DECLINES TOBACCO CESSATION MEDS [facility] [place] [facility] Jan 05, 2012 09:00 AM V1-PT THINKING ABOUT QUIT TOBACCO USE [facility] [place] [facility] Feb 17, 2011 09:52 AM V1-PT DECLINES TOBACCO CESSATION MEDS [facility] [place] [facility] Feb 17, 2011 09:52 AM V1-PT THINKING ABOUT QUIT TOBACCO USE [facility] [place] [facility] Aug 13, 2010 11:31 AM QUIT TOBACCO USE IN PAST YEAR [place] [facility] Feb 19, 2010 01:26 PM QUIT TOBACCO USE IN PAST YEAR [place] [facility] Sep 13, 2009 11:04 AM QUIT TOBACCO USE IN PAST YEAR [place] [facility] Feb 05, 2009 08:29 AM V1-PT DECLINES REF TO TOBACCO CESS PRGM [place] [facility] Feb 05, 2009 08:29 AM V1-PT DECLINES TOBACCO CESSATION MEDS [facility] [place] [facility] Feb 05, 2009 08:29 AM V1-PT THINKING ABOUT QUIT TOBACCO USE [facility] [place] [facility] Aug 22, 2008 09:04 AM QUIT TOBACCO USE IN PAST YEAR [place] [facility] Mar 12, 2008 10:40 AM V1-PT DECLINES REF TO TOBACCO CESS PRGM [facility] [place] [facility] Mar 12, 2008 10:40 AM V1-PT DECLINES TOBACCO CESSATION MEDS [facility] Mar 12, 2008 10:40 AM V1-PT NOT INTERESTED IN QUIT TOBACCO USE [facility] Mar 08, 2008 09:37 AM CURRENT SMOKER smokes one pack a day for about 10 years ago. [facility] Encounter Notes: All associated encounter notes This section contains the clinical notes associated to the Encounter. Date/Time Encounter Note(s) Provider Source Apr 13, 2024 01:02 PM MENTAL HEALTH TELEPHONE ENCOUNTER NOTE: LOCAL TITLE: TELEPHONE NOTE/MENTAL HEALTH STANDARD TITLE: MENTAL HEALTH TELEPHONE ENCOUNTER NOTE DATE OF NOTE: APR 13, 2024@13:02 ENTRY DATE: APR 13, 2024@13:02:09 AUTHOR: JAMIE HAWKINS EXP COSIGNER: URGENCY: STATUS: COMPLETED Medications were reconciled with Active Outpatient Medications: 1) ATORVASTATIN CALCIUM 80MG TAB TAKE ONE TABLET BY MOUTH ONCE DAILY FOR CHOLESTEROL 2) BUPRENORPHINE HCL 2MG SUBLINGUAL TAB DISSOLVE ONE TABLET UNDER THE TONGUE THREE TIMES A DAY 3) CHOLECALCIF 50MCG (D3-2,000UNIT) TAB TAKE ONE TABLET BY MOUTH ONCE DAILY FOR VITAMIN SUPPLEMENTATION 4) CLONAZEPAM 0.5MG TAB TAKE ONE TABLET BY MOUTH EVERY MORNING AND TAKE ONE- HALF TABLET TWICE DAILY NEEDED 5) DILTIAZEM (EQV-TIAZAC) 180MG 24HR CAP TAKE ONE CAPSULE BY MOUTH ONCE DAILY 6) FERROUS GLUCONATE 324MG TAB TAKE ONE TABLET BY MOUTH ONCE DAILY TO SUPPLEMENT IRON 7) LISINOPRIL 40MG TAB TAKE ONE TABLET BY MOUTH ONCE DAILY TO CONTROL BLOOD PRESSURE 8) OXYCODONE HCL 5MG TAB NOT SA TAKE TWO TABLETS BY MOUTH EVERY 4 HOURS NEEDED FOR PAIN 9) TEMAZEPAM 30MG CAP TAKE ONE CAPSULE BY MOUTH AT BEDTIME NEEDED 1) Non-VA ALBUTEROL 100/IPRATRO 20MCG 120D PO INHL 1 PUFF BY MOUTH FOUR TIMES A DAY AFTER MEALS AND AT BEDTIME 2) Non-VA OMEPRAZOLE 20MG CAP,EC 20MG BY MOUTH ONCE DAILY 3) Non-VA OXYGEN MISCELLANEOUS DIRECTED 4) Non-VA SULFAMETHOXAZOLE 800/TRIMETH 160MG TAB 1 TABLET BY MOUTH TWICE DAILY 5) Non-VA TETANUS & DIPHTHERIA TOXOID 0.5ML INTRAMUSCULARLY NOW 6) Non-VA [id number]/VILANTERO L25MCG 30D INH 1 INHALATION BY MOUTH ONCE DAILY REID QUEZADA is a 63 yo, female who was scheduled via [facility] and unable to connect as she is not receiving her emails or link. Appointment change to telephone. Two identifiers were used. CC: Things are stable and anxiety is fine. No alcohol or substance use, nope, nope . Umair is on generic suboxone from the pain clinic. Umair used to get the clonazepam and temazepam from her graphics artist and he retired. Vet states she has been on the same dose of clonazepam and temazepam for over 3 years. Clonazepam was recommended by her graphics artist and also stated the clonazepam. Almat tried other anxiety meds, they were awful. No complaints, no cravings, and no adverse side effects from current medications were reported, none that I know of . Mood is stable, good. Sleep and appetite are both, they're fine. Discussed continuation of present medications as above. Patient education given including that benzodiazepines are not indicated nursing home and that there is a possible interaction with opioids causing respiratory depression. Umair is on a BiPAP machine. Umair declines trying to taper off of benzodiazepines and states they tried before and it didn't work.. It was a disaster. She requests continuation of present medication. Discussed continuation of present medications as above. Patient education given including not taking anyone else's medications or giving her medications to anyone else and to secure and protect her medications from theft and children. Almat is agreeable. MSE: REID QUEZADA is an obese, 63 yo, female who is alert and oriented in all spheres, pleasant and cooperative with interview. Speech is goal directed with normal [...] take over refills of clonazepam and temazepam. Suicide Screen: C-SSRS Screening Dixon-Suicide Severity Rating Scale (C-SSRS Screener) 1. Over the past month, have you wished you were or wished you could go to sleep and not wake up? No 2. Over the past month, have you had any actual thoughts of killing yourself? No 3. Over the past month, have you been thinking about how you might do this? Response not required due to responses to other questions. 4. Over the past month, have you had these thoughts and had some intention of acting on them? Response not required due to responses to other questions. 5. Over the past month, have you started to work out or worked out the details of how to kill yourself? Response not required due to responses to other questions. 6. If yes, at any time in the past month did you intend to carry out this plan? Response not required due to responses to other questions. 7. In your lifetime, have you ever done anything, started to do anything, or prepared to do anything to end your life (for example, collected pills, obtained a gun, gave away valuables, went to the roof but didn't jump)? No 8. If YES, was this within the past 3 months? Response not required due to responses to other questions. Homelessness/Food Insecurity Screen: In the past 2 months, have you been living in stable housing that you own, rent, or stay in as part of a household? Yes - Living in stable housing. Are you worried or concerned that in the next 2 months you may NOT have stable housing that you own, rent, or stay in as part of a household? No - Not worried about housing near future The [place] reports the following: Within the past 12 months, you worried whether your food would run out before you got money to buy more. Never true Within the past 12 months, the food you bought just didn't last and you didn't have money to get more. Never true Offer Overdose Education and Naloxone: Education provided This section supports standardized OEND. Because OUD and Stimulant Use Disorder are strong risk factors for overdose, OEND is recommended. OEND should include critical education on opioid overdose prevention, recognition, and response. Education provided to: Patient The following resources were shared: Naloxone Patient declined naloxone. Reason: I actually have one. /divya/ JAMIE HAWKINS JR, MD STAFF PSYCHIATRIST Signed: 04/13/2024 13:04 [facility]INS [facility]
--- OUTSIDE RECORDS SUMMARY | 2024-07-05 03:47 | XMS_ITS ---
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 [place] Affairs [place] Organization [place] Address [address] [place] [id number] Care Team Providers Care Medical Staff Credentialing Coordinator Name Role Phone ROMANA CASTILLO Primary Care [...] Garcia's Name Patient's Relationship to Policy Garcia [facility] (MEDICAID) [facility] May 14, 2009 [id number] SAMPLE,ROCCO MOORE PATIENT [facility] MEDICAID [facility] May 14, 2009 [id number] SAMPLE,ROCCO MOORE PATIENT MEDICAID MEDICAID [facility] Jul 26, 2018 MEDICAI D [id number] SAMPLE,ROCCO MOORE PATIENT MEDICARE (WNR) MEDICARE (M) PART A November 24, 2015 PART A [id number] SAMPLE,ROCCO MOORE PATIENT MEDICARE (WNR) MEDICARE (M) PART B November 24, 2015 PART B [id number] SAMPLE,ROCCO MOORE PATIENT Selected Encounter This section includes the information on record at [place] for the Encounter. Date/Time Encounter Type Encounter Description Reason Provider Source Apr 13, 2024 03:00 PM OFF/OP EST NOVEMBER X REQ PHY/QHP PRIMARY CARE/MEDICINE ICD-10-CM Z23 Encounter for immunization PRABHU RING HY E IHE Encounter Template Text not used by CT Assessments - Encounter Diagnoses This section includes the primary and secondary diagnoses documented for the Encounter. Date/Time Primary/Secondary Diagnosis Diagnosis Name Provider Source Apr 13, 2024 03:21 PM PRIMARY Encounter for immunization PRABHU RING [facility] [place] [facility] Plan of Treatment: Future Appointments [...] 02, 2024 11:00 AM AMBULATORY - MEDICINE [facility] [place] [place] [facility] May 15, 2024 11:30 AM AM[facility] [place] [facility] May 25, 2024 11:30 AM AMBULATORY - MEDICINE [facility] [place] [facility] Jul 13, 2024 10:00 AM AMBULATORY - MEDICINE [facility] [place] [facility] Aug 24, 2024 11:00 AM AMBULATORY - MEDICINE [facility] [place] [facility] Vital Signs: All taken on the encounter date This section contains inpatient and outpatient Vital Signs collected on the date of the Encounter. Date/Time Temperature Pulse Blood Pressure Respiratory Rate SP02 Pain Height Weight Body Mass Index Source Apr 13, 2024 02:12 PM 97 63 118/[address] [facility] [place] [facility] Immunizations: All administered on the encounter date This section contains immunizations associated to the Encounter. Immunization Series Date Issued Reaction Comments COVID-19 (MODERNA), MRNA, LN P-S, PF, 50 MCG/0.5 ML (AGES 12+ YEARS) Apr 13, 2024 INFLUENZA, HIGH-DOSE, TRIVALENT, PF Apr 13 Social History: Smoking Status (Most current) and [...] 06, 2024 09:00 AM VA-TOBACCO FORMER USER CT [facility] [place] [facility] Tobacco Use History This section includes a history of the smoking, or tobacco-related health factors, that were collected on or before the date of the Encounter. The data comes from the [place] facility where the Encounter took place. Date/Time Smoking Status/Tobac co Use Comment Facility Mar 06, 2024 09:00 AM VA-TOBACCO QUIT [address] [facility] [place] [facility] Mar 31, 2023 11:00 AM VA-TOBACCO FORMER USER [place] [facility] [place] [facility] Mar 31, 2023 11:00 AM VA-TOBACCO QUIT 1 TO < [address] [facility] [place] [facility] Mar 25, 2022 10:30 AM VA-TOBACCO NEVER USED CT CN[facility]L [place] [facility] Mar 19, 2021 02:00 PM VA-TOBACCO FORMER USER CT [facility] [place] [facility] Mar 19, 2021 02:00 PM VA-TOBACCO QUIT < [address] [facility] [place] [facility] Sep 20, 2018 11:24 AM VA-TOBACCO USE DECLINED TO ANSWER CT [facility] [place] [facility] Oct 21, 2017 08:13 AM QUIT TOBACCO USE IN PAST YEAR [place] [facility] [place] [facility] Dec 30, 2016 08:28 AM QUIT TOBACCO USE 1-[address] [facility] [place] [facility] Jun 04, 2016 08:43 AM QUIT TOBACCO USE 1-7 YEARS AGO [facility] [place] [facility] May 17, 2015 08:45 AM QUIT TOBACCO USE 1-7 YEARS AGO quit [address] [facility] [place] [facility] Jun 07, 2014 09:25 AM QUIT TOBACCO USE 1-7 YEARS AGO [facility] [place] [facility] November 30, 2013 08:44 AM QUIT TOBACCO USE IN PAST YEAR [place] [facility] [place] [facility] May 22, 2013 10:10 AM QUIT TOBACCO USE IN PAST YEAR [facility] [place] [facility] December 01, 2012 01:54 PM QUIT TOBACCO USE IN PAST YEAR CT [facility]TR [place] [facility] Jun 07, 2012 08:16 AM V1-PT DECLINES TOBACCO CESSATION MEDS [facility] [place] [facility] Jun 07, 2012 08:16 AM V1-PT THINKING ABOUT QUIT TOBACCO USE [facility] [place] [facility] Jan 05, 2012 09:00 AM CURRENT SMOKER intermittenly CT CNTR [place] [facility] Jan 05, 2012 09:00 AM V1-PT DECLINES REF TO TOBACCO CESS [facility] [place] [facility] Jan 05, 2012 09:00 AM V1-PT DECLINES TOBACCO CESSATION MEDS [facility] [place] [facility] Jan 05, 2012 09:00 AM V1-PT THINKING ABOUT QUIT [facility]AC[facility] [place] [facility] Feb 17, 2011 09:52 AM V1-PT DECLINES TOBACCO CESSATION MEDS CT [facility]TR [place] [facility] Feb 17, 2011 09:52 AM V1-PT THINKING ABOUT QUIT TOBACCO USE CT CNTR [place] [facility] Aug 13, 2010 11:31 AM QUIT TOBACCO USE IN PAST YEAR CT CNTR [place] [facility] Feb 19, 2010 01:26 PM QUIT TOBACCO USE IN PAST YEAR CT [facility]TR [place] [facility] Sep 13, 2009 11:04 AM QUIT TOBACCO USE IN PAST YEAR CT CNTR [place] [facility] Feb 05, 2009 08:29 AM V1-PT DECLINES REF TO TOBACCO CESS PRGM CT CNTR [place] [facility] Feb 05, 2009 08:29 AM V1-PT DECLINES TOBACCO CESSATION MEDS [facility] [place] [facility] Feb 05, 2009 08:29 AM V1-PT THINKING ABOUT QUIT TOBACCO USE [facility] [place] [facility] Aug 22, 2008 09:04 AM [...] Encounter Note(s) Provider Source Apr 13, 2024 03:08 PM PREVENTIVE MEDICIN E NURSING NOTE: LOCAL TITLE: CLINICAL REMINDERS/NURSING STANDARD TITLE: PREVENTIVE MEDICINE NURSING NOTE DATE OF NOTE: APR 13, 2024@15:08 ENTRY DATE: APR 13, 2024@15:08:25 AUTHOR: JASON RING EXP COSIGNER: URGENCY: STATUS: COMPLETED Homelessness/Food Insecurity Screen: In the past 2 [...] Not worried about housing near future The [place] reports the following: Within the past 12 months, you worried whether your food would run out before you got money to buy more. Never true Within the past 12 months, the food you bought just didn't last and you didn't have money to get more. Never true Influenza Immunization: Influenza, High-Dose, Trivalent, Preservative Free (Fluzone-Syringe) Administered: INFLUENZA, HIGH-DOSE, TRIVALENT, PF Date Administered: Apr 13, 2024 15:00 Medical Billing Associate: SANOFI PASTEUR Lot: [id number] Exp Date: Jan 22, 2025 [facility]: [phone] Admin Route/Site: INTRAMUSCULAR/Left DELTOID Dosage: 0.5mL Vaccine Information Statement(s): INFLUENZA(FLU) VACC(INACTIVATED OR RECOMBINANT)VIS Feb 28, 2021 ([place]) Order By: Policy Administered By: Jason Ring The Influenza Vaccine Information Statement (VIS) was reviewed with the patient/caregiver which lists the benefits and risks of the vaccine and the risks of not receiving the Influenza vaccine. The patient/caregiver denied any prior severe reaction to this vaccine or its components or a severe allergic reaction, such as anaphylaxis, to any vaccine or any injectable therapy. The patient/caregiver gave verbal consent to receive the vaccine. COVID-19 Immunization: Moderna Monovalent (Spikevax) Administered: COVID-19 (MODERNA), MRNA, LNP-S, PF, 50 MCG/0.5 ML (AGES 12+ YEARS) Date Administered: Apr 13, 2024 15:00 Medical Billing Associate: MODERNA [employer]. Lot: [id number] Exp Date: December 16, 2024 [facility]: [id number] Admin Route/Site: INTRAMUSCULAR/RIGHT DELTOID Dosage: 0.5mL Vaccine Information Statement(s): COVID-19 MRNA VACCINE (12+ YRS) VACCINE VIS May 13, 2023 ([place]) Order By: Policy Administered By: Jason Ring Vaccine administered without complications. /divya/ JASON RING MSN Ed., BSN WASH HOUSE SUPERVISOR NURSE Signed: 04/13/2024 15:21 JASON RING [facility]
--- OUTSIDE RECORDS SUMMARY | 2024-07-05 03:47 | XMS_ITS | Encounter Summary ---
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 [place] [facility] [place] [facility] [place] [facility] [place] Address [address] [place] [address] Care Team Providers Care Help Desk Supervisor Name Role Phone ROMANA CASTILLO Primary [...] Garcia's Name Patient's Relationship to Policy Garcia [facility] (MEDICAID) [place]ICAID [place] [facility] May 14, 2009 [id number] SAMPLE,ROCCO MOORE PATIENT [facility] May 14, 2009 [id number] SAMPLE,ROCCO MOORE PATIENT MEDICAID MEDICAID [facility] [facility] Jul 26, 2018 MEDICAI D [id number] SAMPLE,ROCCO MOORE PATIENT MEDICARE (WNR) MEDICARE (M) PART A November 24, 2015 PART A [id number] SAMPLE,ROCCO MOORE PATIENT MEDICARE (WNR) MEDICARE (M) PART B November 24, 2015 PART B [id number] SAMPLE,ROCCO MOORE PATIENT Selected Encounter This section includes the information on record at [place] for the Encounter. Date/Time Encounter Type Encounter Description Reason Pro vider Source Apr 06, 2024 10:40 AM Outpatient Encounter ADMIN PAT ACTIVTIES (MASNONCT) IHE Encounter Template Text not used by [place] Plan of Treatment: Future Appointments (+ 6 months) and Future Tests (+/- 45 days) The Plan of Treatment section includes future care activities for the patient from all [place] treatmentfacilities. This section includes future appointments and future orders which are active, pending or scheduled. Future Appointments This section includes appointments that were scheduled to occur 6 months from the date of the Encounter, up to a maximum of 20 appointments. The data comes from all [place] treatment facilities. Appointment Date/Time Appointment Type Appointme nt Facility Name Apr 13, 2024 11:00 AM AMBULATORY [place]ATRY [place] [facility] [place] [facility] Apr 13, 2024 02:00 PM AMBULATORY [facility] [place] [facility] Apr 13, 2024 03:00 PM AMBULATORY - [facility] [place] [facility] May 02, 2024 11:00 AM AMBULATORY [facility] [place] [facility] May 15, 2024 11:30 AM AMBULATORY [place] [facility] [place] [facility] May 25, 2024 11:30 AM AM[facility]ULATORY [facility] [place] [facility] Jul 13, 2024 10:00 AM AMBULATORY - MEDICINE [facility] [place] [facility] Aug 24, 2024 11:00 AM [facility] Social History: Smoking Status (Most current) and Tobacco Use (All prior to encounter date) This section includes the most current, and the historical, smoking and tobacco- related health factors from the [place] facility where the Encounter took place. Current Smoking Status This section includes the most current smoking, or tobacco-related health factor, from the [place] facility where the Encounter took place. Date/Time Current Smoking Status Comment Rosana christian Mar 06, 2024 09:00 AM [place]-TOBACCO QUIT 15 YRS OR MORE [facility] Tobacco Use History This section includes a history of the smoking, or tobacco-related health factors, that were collected on or before the date of the Encounter. The data comes from the [place] facility where the Encounter took place. Date/Time Smoking Status/Tobac co Use Comment Facility Mar 06, 2024 09:00 AM VA-TOBACCO QUIT 15 YRS OR MORE [place] [facility] [place] [facility] Mar 31, 2023 11:00 AM VA-TOBACCO FORMER USER [place] [facility] [place] [facility] Mar 31, 2023 11:00 AM VA-TOBACCO QUIT 1 TO < 5 YRS [place] [facility] [place] [facility] Mar 25, 2022 10:30 AM VA-TOBACCO NEVER USED [place] [facility] [place] [facility] Mar 19, 2021 02:00 PM VA-TOBACCO FORMER USER [place] [facility] [place] [facility] Mar 19, 2021 02:00 PM VA-TOBACCO QUIT < 1 YEAR [place] [facility] [place] [facility] Sep 20, 2018 11:24 AM VA-TOBACCO USE DECLINED TO ANSWER [place] [facility] [place] [facility] Oct 21, 2017 08:13 AM QUIT TOBACCO USE IN PAST YEAR [place] [facility] [place] [facility] Dec 30, 2016 08:28 AM QUIT TOBACCO USE 1-7 YEARS AGO [place] [facility] [place] [facility] Jun 04, 2016 08:43 AM QUIT TOBACCO USE 1-7 YEARS AGO [place] [facility] [place] [facility] May 17, 2015 08:45 AM QUIT TOBACCO USE 1-7 YEARS AGO quit 2 years ago. [place] [facility] [place] [facility] Jun 07, 2014 09:25 AM QUIT TOBACCO USE 1-7 YEARS AGO [place] [facility] [place] [facility] November 30, 2013 08:44 AM QUIT TOBACCO USE IN PAST YEAR [place] [facility] [place] [facility] May 22, 2013 10:10 AM QUIT TOBACCO USE IN PAST YEAR [place] [facility] [place] [facility] December 01, 2012 01:54 PM QUIT TOBACCO USE IN PAST YEAR [place] [facility] [place] [facility] Jun 07, 2012 08:16 AM V1-PT DECLINES TOBACCO CESSATION MEDS [place] [facility] [place] [facility] Jun 07, 2012 08:16 AM V1-PT THINKING ABOUT QUIT TOBACCO USE [place] [facility] [place] [facility] Jan 05, 2012 09:00 AM CURRENT SMOKER intermittenly [place] [facility] [place] [facility] Jan 05, 2012 09:00 AM V1-PT DECLINES REF TO TOBACCO CESS PRGM [place] [facility] [place] [facility] Jan [...] AM V1-PT THINKING ABOUT QUIT TOBACCO USE [place] [facility] [place] [facility] Aug 13, 2010 11:31 AM QUIT TOBACCO USE IN PAST YEAR [place] [facility] [place] [facility] Feb 19, 2010 01:26 PM [facility] [place] [facility] Sep 13, 2009 11:04 AM QUIT TOBACCO USE IN PAST YEAR [place] [facility] [place] [facility] Feb 05, 2009 08:29 AM V1-PT DECLINES REF TO [facility]BACCO CESS [facility] [place] [facility] Feb 05, 2009 08:29 AM V1-PT DECLINES TOBACCO CESSATION [facility] [place] [facility] Feb 05, 2009 08:29 AM V1-PT THINKING ABOUT QUIT [facility]ACCO [facility] [place] [facility] Aug 22, 2008 09:04 AM QUIT TOBACCO USE IN PAST YEAR [place] [facility] [place] [facility] Mar 12, 2008 10:40 AM V1-PT DECLINES REF TO TOBACCO CESS PRGM [place] [facility] [place] [facility] Mar 12, 2008 10:40 AM V1-PT DECLINES TOBACCO CESSATION MEDS [place] [facility] [place] [facility] Mar 12, 2008 10:40 AM V1-PT NOT INTERESTED IN QUIT TOBACCO USE [place] [facility] [place] [facility] Mar 08, 2008 09:37 AM CURRENT SMOKER smokes one pack a day for about 10 years ago. [facility] [place] [facility] Encounter Notes: All associated encounter notes This section contains the clinical notes associated to the Encounter. Date/Time Encounter Note(s) Provider Source Apr 06, 2024 10:53 AM ADDENDUM: LOCAL TITLE: Addendum STANDARD TITLE: ADDENDUM DATE OF NOTE: APR 06, 2024@10:53:25 ENTRY DATE: APR 06, 2024@10:53:26 AUTHOR: JOHN ARTEAGA COSIGNER: URGENCY: STATUS: COMPLETED please offer next avail. Vet recently in hospital for heart failure. can book into thurs if need be /isabella Arteaga RN Primary Care Staff Nurse Signed: 04/06/2024 10:54 Receipt Acknowledged By: 04/06/2024 11:02 /isabella WOLFE [employer] Server --- Original Document --- 04/06/24 CCC: SCHEDULING ADMINISTRATION: Patient Demographics Patient Name: REID QUEZADA Patient Primary Phone: [phone] Patient Primary Address: [address] [place] [id number] Patient : 1960 Patient Age: 64 Caller/Recipient Relation to Patient: Self Administrative Administrative Note Reason: Returned Call Administrative Note Comments: Pt called stating returning PACT call regarding set up PCP appt for post hospital discharge. Pt's call back number is [phone]. IMPORTANT: This note was created by [facility] Clinical Contact Center staff. Please do not alert the staff member by adding them as a signer for future communications. Alerts are not monitored by this user. /divya/ MARIPOSA BOUDREAUX Signed: 04/06/2024 10:40 Receipt Acknowledged By: 04/06/2024 11:02 /isabella WOLFE [employer] Server 04/06/2024 10:54 /isabella Arteaga RN Primary Care Staff Nurse 04/06/2024 ADDENDUM STATUS: COMPLETED Scheduled for 04/13. /isabella WOLFE [employer] Server Signed: 04/06/2024 11:01 JOHN ARTEAGAR [facility] [place] [facility] Apr 06, 2024 10:40 AM ADMINISTRATIVE NOT E: LOCAL TITLE: CCC: SCHEDULING ADMINISTRATION STANDARD TITLE: ADMINISTRATIVE NOTE DATE OF NOTE: APR 06, 2024@10:40:41 ENTRY DATE: APR 06, 2024@10:40:41 AUTHOR: MARIPOSA BOUDREAUX EXP COSIGNER: URGENCY: STATUS: COMPLETED CCC: SCHEDULING ADMINISTRATION Has ADDENDA Patient Demographics Patient Name: REID QUEZADA Patient Primary Phone: [phone] Patient Primary [address]: [address] [place] [id number] Patient : 1960 Patient Age: 64 Caller/Recipient Relation to Patient: Self Administrative Administrative Note Reason: Returned Call Administrative Note Comments: Pt called stating returning PACT call regarding set up PCP appt for post hospital discharge. Pt's call back number is [phone]. IMPORTANT: This note was created by [facility] Clinical Contact Center staff. Please do not alert the staff member by adding them as a signer for future communications. Alerts are not monitored by this user. /isabella BOUDREAUX Signed: 04/06/2024 10:40 Receipt Acknowledged By: 04/06/2024 11:02 /isabella WOLFE [employer] Server 04/06/2024 10:54 /isabella Arteaga RN Primary Care Staff Nurse 04/06/2024 ADDENDUM STATUS: COMPLETED please offer next avail. Vet recently in hospital for heart failure. can book into thurs if need be /isabella Arteaga RN Primary Care Staff Nurse Signed: 04/06/2024 10:54 Receipt Acknowledged By: 04/06/2024 11:02 /isabella WOLFE [employer] 04/06/2024 ADDENDUM STATUS: COMPLETED Scheduled for 04/13. /isabella WOLFE [employer] Server Signed: 04/06/2024 11:01 [facility]
--- OUTSIDE RECORDS SUMMARY | 2024-07-05 03:48 | XMS_ITS | Encounter Summary ---
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 [place] Organization [facility] [place] Address [address] [place] [id number] Care Team Providers Care Ict Security Specialist Name Role Phone ROMANA CASTILLO Primary [...] Garcia's Name Patient's Relationship to Policy Garcia [facility] (MEDICAID) [facility] May 14, 2009 [id number] SAMPLE,ROCCO MOORE PATIENT [facility] MEDICAID [facility] May 14, 2009 [id number] SAMPLE,ROCCO MOORE PATIENT MEDICAID MEDICAID [facility] ESTEFANY Jul 26, 2018 MEDICAI D [id number] SAMPLE,ROCCO MOORE PATIENT MEDICARE (WNR) MEDICARE (M) PART A November 24, 2015 PART A [id number] SAMPLE,ROCCO MOORE PATIENT MEDICARE (WNR) MEDICARE (M) PART B November 24, 2015 PART B [id number] [phone] SAMPLEROCCO PATIENT Selected Encounter This section includes the information on record at [place] for the Encounter. Date/Time Encounter Type Encounter Description Reason Pro vider Source May 03, 2024 04:21 PM Outpatient Encounter RESPIRATORY THERAPY IHE Encounter Template Text not used by [...] Appointment Type Appointme nt Facility Name May 15, 2024 11:30 AM [facility] May 25, 2024 11:30 AM [facility] Jul 13, 2024 10:00 AM [facility] Aug 24, 2024 11:00 AM AMBULATORY - MEDICINE [facility] Lab Results: +/- 30 days of the encounter This section includes the Chemistry and Hematology Lab Results on record with [place] for the patient. Radiology Reports and Pathology Reports are provided separately, in subsequent sections. Lab Results This section contains the Chemistry/Hematology Results that were resulted 30 days before or 30 daysafter the date of the Encounter. Date/Time Source Result Type Result - Unit Interpretation Reference Range Comment May 16, 2024 04:03 PM [facility] METHADONE SCREEN Specimen Type: URINE Comment: BRISSA test are qualitative, any L or H flags only indicate a [place] alert was sent. Ordering Provider: RONAN MADSEN Report Released Date/Time: May 16, 2024 01:45 PM Reporting Lab: [facility] [address] [address] Performing Lab: [facility] [address] [facility] [address] METHADONE SCREEN None detected(Nega tive) L Negative May 16, 2024 04:03 PM [facility] AMPHETAMINES SCREEN PANEL Specimen Type: URINE Comment: Urine with Cr <5 is diluted or substituted. Cr between 5 and 20 is very dilute. Urine with SG of 1.001 or less is diluted or substituted. SG of 1.003 or less is very dilute. Urine with a pH <3 or >11 has been adulterated and is unsuitable for testing by our current method. Urine with pH between 3 and 4 OR 10 and 11 may have been adulterated. Ordering Provider: RONAN MADSEN Report Released Date/Time: May 16, 2024 01:45 PM Reporting Lab: [address] [address] Performing Lab: [address] [address] AMPHETAMINES SCREEN NONE-DETECTED None-Detec dirk, Cutoff = 1000 ng/mL PH, BRISSA 4.7 [pH] 4-10 CREATININE, BRISSA 76.90 mg/dL >20 SP.GRAVITY, BRISSA 1.015 1.00 3-1.02 0 May 16, 2024 04:03 PM [facility] ALCOHOL, ETHYL URINE PANEL Specimen Type: URINE Comment: Urine with Cr <5 is diluted or substituted. Cr between 5 and 20 is very dilute. Urine with SG of 1.001 or less is diluted or substituted. SG of 1.003 or less is very dilute. Urine with a pH <3 or >11 has been adulterated and is unsuitable for testing by our current method. Urine with pH between 3 and 4 OR 10 and 11 may have been adulterated. Ordering Provider: RONAN MADSEN Report Released Date/Time: May 16, 2024 01:45 PM Reporting Lab: [address] [address] Performing Lab: [address] [address] ALCOHOL, ETHYL URINE NONE-DETECTED mg/dL NONE-DETEC DIRK, cutoff = 10 mg/dL PH, BRISSA 4.7 [pH] 4-10 CREATININE, BRISSA 76.90 mg/dL >20 SP.GRAVITY, BRISSA 1.015 1.00 3-1.02 0 May 16, 2024 04:03 PM [facility] FENTANYL SCREEN PANEL Specimen Type: URINE Comment: Urine with Cr <5 is diluted or substituted. Cr between 5 and 20 is very dilute. Urine with SG of 1.001 or less is diluted or substituted. SG of 1.003 or less is very dilute. Urine with a pH <3 or >11 has been adulterated and is unsuitable for testing by our current method. Urine with pH between 3 and 4 OR 10 and 11 may have been adulterated. FENTANYL CONFIRMATION NOT SENT BY LAB. Ordering Provider: RONAN MADSEN Report Released Date/Time: May 16, 2024 01:45 PM Reporting Lab: [address] [address] Performing Lab: [address] [address] FENTANYL SCREEN NONE-DETECTE D ng/mL Negative: Cutoff = 1.00 ng/mL PH, BRISSA 4.7 [pH] 4-10 CREATININE, BRISSA 76.33 mg/dL >20 SP.GRAVITY, BRISSA 1.015 1.00 3-1.02 0 May 16, 2024 04:03 PM [facility] BENZODIAZEPINES SCREEN PANEL Specimen Type: URINE Comment: Urine with Cr <5 is diluted or substituted. Cr between 5 and 20 is very dilute. Urine with SG of 1.001 or less is diluted or substituted. SG of 1.003 or less is very dilute. Urine with a pH <3 or >11 has been adulterated and is unsuitable for testing by our current method. Urine with pH between 3 and 4 OR 10 and 11 may have been adulterated. Ordering Provider: RONAN MADSEN Report Released Date/Time: May 16, 2024 01:45 PM Reporting Lab: [address] [address] Performing Lab: [address] [address] BENZODIAZEPINES SCREEN POSITIVE HH None-Detec dirk, Cutoff = 200 ng/mL PH, BRISSA 4.7 [pH] 4-10 CREATININE, BRISSA 76.90 mg/dL >20 SP.GRAVITY, BRISSA 1.015 1.00 3-1.02 0 May 16, 2024 04:03 PM [facility] CANNABINOIDS SCREEN PANEL Specimen Type: URINE Comment: Urine with Cr <5 is diluted or substituted. Cr between 5 and 20 is very dilute. Urine with SG of 1.001 or less is diluted or substituted. SG of 1.003 or less is very dilute. Urine with a pH <3 or >11 has been adulterated and is unsuitable for testing by our current method. Urine with pH between 3 and 4 OR 10 and 11 may have been adulterated. Ordering Provider: RONAN MADSEN Report Released Date/Time: May 16, 2024 01:45 PM Reporting Lab: [address] [address] Performing Lab: [address] [address] CANNABINOIDS SCREEN NONE-DETECTED None-Detec dirk,Cutoff = 50 ng/mL PH, BRISSA 4.7 [pH] 4-10 CREATININE, BRISSA 76.90 mg/dL >20 SP.GRAVITY, BRISSA 1.015 1.00 3-1.02 0 May 16, 2024 04:03 PM [facility] BUPRENORPHINE SCREEN PANEL Specimen Type: URINE Comment: Urine with Cr <5 is diluted or substituted. Cr between 5 and 20 is very dilute. Urine with SG of 1.001 or less is diluted or substituted. SG of 1.003 or less is very dilute. Urine with a pH <3 or >11 has been adulterated and is unsuitable for testing by our current method. Urine with pH between 3 and 4 OR 10 and 11 may have been adulterated. Ordering Provider: RONAN MADSEN Report Released Date/Time: May 16, 2024 01:45 PM Reporting Lab: [address] [address] Performing Lab: [address] [address] BUPRENORPHINE (URINE) POSITIVE HH None Detected, Cutoff = 10.0 ng/mL PH, BRISSA 4.7 [pH] 4-10 CREATININE, BRISSA 76.90 mg/dL >20 SP.GRAVITY, BRISSA 1.015 1.00 3-1.02 0 May 16, 2024 04:03 PM [facility] COCAINE SCREEN PANEL Specimen Type: URINE Comment: Urine with Cr <5 is diluted or substituted. Cr between 5 and 20 is very dilute. Urine with SG of 1.001 or less is diluted or substituted. SG of 1.003 or less is very dilute. Urine with a pH <3 or >11 has been adulterated and is unsuitable for testing by our current method. Urine with pH between 3 and 4 OR 10 and 11 may have been adulterated. Ordering Provider: RONAN MADSEN Report Released Date/Time: May 16, 2024 01:45 PM Reporting Lab: [address] [address] Performing Lab: [address] [address] COCAINE SCREEN NONE-DETECTED N one-Detec dirk,Cutoff = 300 ng/mL PH, BRISSA 4.7 [pH] 4-10 CREATININE, BRISSA 76.90 mg/dL >20 SP.GRAVITY, BRISSA 1.015 1.00 3-1.02 0 May 16, 2024 04:03 PM [facility] OPIATES SCREEN PANEL Specimen Type: URINE Comment: Urine with Cr <5 is diluted or substituted. Cr between 5 and 20 is very dilute. Urine with SG of 1.001 or less is diluted or substituted. SG of 1.003 or less is very dilute. Urine with a pH <3 or >11 has been adulterated and is unsuitable for testing by our current method. Urine with pH between 3 and 4 OR 10 and 11 may have been adulterated. Ordering Provider: RONAN MADSEN Report Released Date/Time: May 16, 2024 01:45 PM Reporting Lab: [address] [address] Performing Lab: [address] [address] OPIATES SCREEN POSITIVE HH None- Detec dirk, Cutoff = 300 ng/mL PH, BRISSA 4.7 [pH] 4-10 CREATININE, BRISSA 76.90 mg/dL >20 SP.GRAVITY, BRISSA 1.015 1.00 3-1.02 0 May 16, 2024 04:03 PM [facility] OXYCODONE SCREEN PANEL Specimen Type: URINE Comment: Urine with Cr <5 is diluted or substituted. Cr between 5 and 20 is very dilute. Urine with SG of 1.001 or less is diluted or substituted. SG of 1.003 or less is very dilute. Urine with a pH <3 or >11 has been adulterated and is unsuitable for testing by our current method. Urine with pH between 3 and 4 OR 10 and 11 may have been adulterated. Ordering Provider: RONAN MADSEN Report Released Date/Time: May 16, 2024 01:45 PM Reporting Lab: [facility] [address] [facility] [address] Performing Lab: [address] [address] OXYCODONE SCREEN POSITIVE HH Non e-Detec dirk, Cutoff = 100 ng/mL PH, BRISSA 4.7 [pH] 4-10 CREATININE, BRISSA 76.90 mg/dL >20 SP.GRAVITY, BRISSA 1.015 1.00 3-1.02 0 Social History: Smoking Status (Most current) and [...] took place. Date/Time Current Smoking Status Comment [facility] Mar 06, 2024 09:00 AM VA-TOBACCO FORMER USER [facility] Tobacco Use History This section includes a history of the smoking, or tobacco-related health factors, that were collected on or before the date of the Encounter. The data comes from the [place] facility where the Encounter took place. Date/Time Smoking Status/Tobac co Use Comment [facility] Mar 06, 2024 09:00 AM [place]-TOBACCO QUIT 15 YRS OR MORE [facility] Mar 31, 2023 11:00 AM VA-TOBACCO FORMER USER [facility] [place] [facility] Mar 31, 2023 11:00 AM VA-TOBACCO QUIT 1 TO < 5 YRS [facility] [place] [facility] Mar 25, 2022 10:30 AM VA-TOBACCO NEVER USED [facility] [place] [facility] Mar 19, 2021 02:00 PM VA-TOBACCO FORMER USER [facility] [place] [facility] Mar 19, 2021 02:00 PM VA-TOBACCO QUIT < 1 YEAR [facility] [place] [facility] Sep 20, 2018 11:24 AM VA-TOBACCO USE DECLINED TO ANSWER [facility] [place] [facility] Oct 21, 2017 08:13 AM QUIT TOBACCO USE IN PAST YEAR [facility] [place] [facility] Dec 30, 2016 08:28 AM QUIT TOBACCO USE 1-7 YEARS AGO [facility] [place] [facility] Jun 04, 2016 08:43 AM QUIT TOBACCO USE 1-[facility] YEARS AGO [facility] [place] May 17, 2015 08:45 AM QUIT TOBACCO USE 1-7 YEARS AGO quit 2 years ago. [facility] [place] [facility] Jun 07, 2014 09:25 AM QUIT TOBACCO USE 1-7 YEARS AGO [facility] [place] [facility] November 30, 2013 08:44 AM QUIT TOBACCO USE IN PAST YEAR [facility] [place] [facility] May 22, 2013 10:10 AM QUIT TOBACCO USE IN PAST YEAR [facility] [place] [facility] December 01, 2012 01:54 PM QUIT TOBACCO USE IN PAST YEAR [facility] [place] [facility] Jun 07, 2012 08:16 AM V1-PT DECLINES TOBACCO CESSATION MEDS [facility] [place] [facility] Jun 07, 2012 08:16 AM V1-PT THINKING ABOUT QUIT TOBACCO USE [facility] [place] [facility] Jan 05, 2012 09:00 AM CURRENT SMOKER intermittenly [facility] [place] [facility] Jan 05, 2012 09:00 AM V1-PT DECLINES REF TO TOBACCO CESS [facility]GM [facility] [place] Jan 05, 2012 09:00 AM V1-PT DECLINES TOBACCO CESSATION MEDS [facility] [place] [facility] Jan 05, 2012 09:00 AM V1-PT THINKING ABOUT QUIT TOBACCO USE [facility] Feb 17, 2011 09:52 AM V1-PT DECLINES [facility] Feb 17, 2011 09:52 AM V1-PT TH[facility]ING ABOUT [facility]IT [facility] Aug 13, 2010 11:31 AM QUIT TOBACCO USE IN PAST YEAR [facility] Feb 19, 2010 01:26 PM QUIT TOBACCO USE IN PAST YEAR [facility] Sep 13, 2009 11:04 AM QUIT [facility]BACCO [facility]ST [facility] Feb 05, 2009 08:29 AM V1-PT DECLINES REF TO TOBACCO CESS [facility] Feb 05, 2009 08:29 AM V1-PT DECLINES [facility]BACCO [facility]ATION [facility] Feb 05, 2009 08:29 AM V1-PT THINKING ABOUT QUIT TOBACCO USE [facility] Aug 22, 2008 09:04 AM QUIT TOBACCO USE IN PAST YEAR [facility] Mar 12, 2008 10:40 AM V1-PT DECLINES REF TO TOBACCO CESS PRGM [facility] Mar 12, 2008 10:40 AM V1-PT DECLINES TOBACCO CESSATION MEDS [facility] Mar 12, 2008 10:40 AM V1-PT NOT INTERESTED IN QUIT TOBACCO USE [facility] Mar 08, 2008 09:37 AM CURRENT SMOKER smokes one pack a day for about 10 years ago. [facility] Encounter Notes: All associated encounter notes This section contains the clinical notes associated to the Encounter. Date/Time Encounter Note(s) Provider Source May 03, 2024 04:21 PM CLERICAL NOTE: LOCAL TITLE: APPOINTMENT NO SHOW STANDARD TITLE: CLERICAL NOTE DATE OF NOTE: MAY 03, 2024@16:21 ENTRY DATE: MAY 03, 2024@16:22:03 AUTHOR: HARVEY HERNANDES COSIGNER: URGENCY: STATUS: COMPLETED Patient Name: REID QUEZADA Patient SSN: [id number] Date and time of Appointment No show : 05/03/24 16:21 PATIENT PHONE - PHONE NUMBER [CELLULAR] - Patient's medical record was reviewed. Follow-up actions were determined and initiated: Please check/complete as applies: [X]Telephoned Directly [ ]Re-scheduled for next available appt [X]Sent a N0-show letter ( must call for appointment) [ ]Other (Emergent/Overbook, etc.): Additional Comments: Future Clinic Visits 05/10/2024 10:30 CWM/NO/PAIN MD 1 08/24/2024 11:00 CWM/NO/PACT 4 /es/ HARVEY MOLINA Signed: 05/03/2024 16:22 [facility] HERNANDES [facility]
--- OUTSIDE RECORDS SUMMARY | 2024-07-05 03:48 | XMS_ITS ---
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 Organization [facility] [place] Address [address] [place] [id number] Care Team Providers Care Cutter And Paster Press Clippings Name Role Phone ROMANA CASTILLO Primary Care [...] Policy Garcia [facility] (MEDICAID) [facility]ICAID [facility] May 14, 2009 [id number] SAMPLE,ROCCO MOORE PATIENT [facility] MEDICAID [facility] HUMAN [facility] May 14, 2009 [id number] SAMPLE,ROCCO MOORE PATIENT MEDICAID MEDICAID [facility] Jul 26, 2018 MEDICAI D [id number] SAMPLE,ROCCO MOORE PATIENT MEDICARE (WNR) MEDICARE (M) PART A November 24, 2015 PART A [id number] SAMPLE,ROCCO MOORE PATIENT MEDICARE (WNR) MEDICARE (M) PART B November 24, 2015 PART B [id number] ROCCO QUEZADA PATIENT Selected Encounter This section includes the information on record at [place] for the Encounter. Date/Time Encounter Type Encounter Description Reason Pro vider Source Apr 03, 2024 12:00 AM Outpatient Encounter EVENT (HISTORICAL) [...] AMBULATORY - PSYCHIATRY [place] [facility] Apr 13, 2024 02:00 PM AMBULATORY - MEDICINE DE [place] [facility] Apr 13, 2024 03:00 PM AMBULATORY MEDICINE DE C [place] [facility] May 02, 2024 11:00 AM AMBULATORY - MEDICINE DE C [place] [place] [facility] May 15, 2024 11:30 AM AMBULATORY - PSYCHIATRY [place] [place] [facility] May 25, 2024 11:30 AM AMBULATORY - MEDICINE DE C [place] [facility] Jul 13, 2024 10:00 AM AMBULATORY - MEDICINE DE C [place] [place] [facility] Aug 24, 2024 11:00 AM AMBULATORY - [facility]ICINE [facility] Lab Results: +/- 30 days of [...] 2024 09:56 AM DE [facility]TR [place] [facility] VITAMIN D (25-OH) Specimen Type: SERUM No comment entered. Ordering Provider: Sherrie CASTILLO Report Released Date/Time: Mar 06, 2024 09:36 AM Reporting [facility] [address] [address] [address] Performing Lab: [facility] [address] [address] VITAMIN D (25-OH) 20 ng/mL 20-50 Mar 06, 2024 09:56 AM [facility] IRON & TIBC PANEL Specimen Type: SERUM No comment entered. Ordering Provider: Sherrie CASTILLO Report Released Date/Time: Mar 06, 2024 09:36 AM Reporting Lab: [facility] [address] [address] Performing [facility]: [facility] [address] [address] TIBC 364 ug/dL 204-475 IRON 36 ug/dL L 40-160 Transferrin Saturation 9.9 L 20.0-50.0 Mar 06, 2024 09:56 AM [facility] FERRITIN Specimen Type: SERUM No comment entered. Ordering Provider: Sherrie CASTILLO Report Released Date/Time: Mar 06, 2024 09:36 AM Reporting Lab: [facility] [address] [address] Performing Lab: [address] [address] FERRITIN 52 ng/mL 10-200 Mar 06, 2024 [...] 06, 2024 09:36 AM Reporting Lab: [address] [address] Performing Lab: [facility] [address] [facility] [address] HEMOGLOBIN A1C 5.4 4.0-5.6 Mar 06, 2024 09:56 AM [facility] MICROALBUMIN CREATININE RATIO PANEL Specimen Type: URINE No comment entered. Ordering Provider: Sherrie CASTILLO Report Released Date/Time: Mar 06, 2024 09:36 AM Reporting Lab: [facility] [address] [facility] [address] Performing Lab: [address] [address] MICROALBUMIN/C REATININE RATIO 251.1 mg/g H 0-29.9 MICROALBUMIN,Q UANTITATIVE 11.2 mg/dL RR UNAVAIL CREATININE URINE 44.60 mg/dL Mar 06, 2024 09:56 AM [facility] BASIC METABOLIC PANEL (non-fasting) Specimen Type: SERUM No comment entered. Ordering Provider: Sherrie CASTILLO Report Released Date/Time: Mar 06, 2024 09:36 AM Reporting Lab: [address] [address] Performing Lab: [address] [address] UREA NITROGEN 28 mg/dL H 7-25 GLUCOSE [...] 06, 2024 09:36 AM Reporting Lab: [address] [address] Performing Lab: [facility] [address] [facility] [address] WBC 12.33 10*3/uL H 4.50-11.00 RBC 3.92 [...] Rosana christian Mar 06, 2024 09:00 AM VA-TOBACCO FORMER USER [facility] Tobacco Use History This section includes a history of the smoking, or tobacco-related health factors, that were collected on or before the date of the Encounter. The data comes from the [place] facility where the Encounter took place. Date/Time Smoking Status/Tobac co Use Comment Facility Mar 06, 2024 09:00 AM VA-TOBACCO QUIT 15 YRS OR MORE [place] [facility] [place] [facility] Mar 31, 2023 11:00 AM VA-TOBACCO FORMER USER DE [facility] [place] [facility] Mar 31, 2023 11:00 AM VA-TOBACCO QUIT 1 TO < 5 YRS DE [facility] [place] [facility] Mar 25, 2022 10:30 AM VA-TOBACCO NEVER USED DE [facility]TR [place] [facility] Mar 19, 2021 02:00 PM VA-TOBACCO FORMER USER [place] [facility] [place] [facility] Mar 19, 2021 02:00 PM VA-TOBACCO QUIT < 1 YEAR DE [facility]TR [place] [facility] Sep 20, 2018 11:24 AM VA-TOBACCO USE DECLINED TO ANSWER DE [facility] [place] [facility] Oct 21, 2017 08:13 AM QUIT TOBACCO USE IN PAST YEAR [place] [facility] [place] [facility] Dec 30, 2016 08:28 AM QUIT TOBACCO USE 1-7 YEARS AGO DE [facility] [place] [facility] Jun 04, 2016 08:43 AM QUIT TOBACCO USE 1-7 YEARS AGO DE [facility] [place] [facility] May 17, 2015 08:45 AM QUIT TOBACCO USE 1-7 YEARS AGO quit 2 years ago. DE [facility] [place] [facility] Jun 07, 2014 09:25 AM QUIT TOBACCO USE 1-7 YEARS AGO DE [facility] [place] [facility] November 30, 2013 08:44 AM QUIT TOBACCO USE IN PAST YEAR [place] [facility] [place] [facility] May 22, 2013 10:10 AM QUIT TOBACCO USE IN PAST YEAR [place] [facility] [place] [facility] December 01, 2012 01:54 PM QUIT TOBACCO USE IN PAST YEAR DE [facility] [place] [facility] Jun 07, 2012 08:16 AM V1-PT DECLINES TOBACCO CESSATION MEDS [place] [facility] [place] [facility] Jun 07, 2012 08:16 AM V1-PT THINKING ABOUT QUIT TOBACCO USE DE [facility]TR [place] [facility] Jan 05, 2012 09:00 AM CURRENT SMOKER intermittenly DE [facility]TR [place] [facility] Jan 05, 2012 09:00 AM V1-PT DECLINES REF TO TOBACCO CESS PRGM [place] [facility] [place] [facility] AM V1-PT THINKING ABOUT QUIT TOBACCO USE DE [facility] [place] [facility] Aug 13, 2010 11:31 AM QUIT TOBACCO USE IN PAST YEAR DE [facility]TR [place] [facility] Feb 19, 2010 01:26 PM QUIT TOBACCO USE [facility]ST [facility]AR [facility] [place] [facility] Sep 13, 2009 11:04 AM QUIT TOBACCO USE IN PAST YEAR DE [facility]TR [place] [facility] Feb 05, 2009 08:29 AM V1-PT DECLINES REF TO TOBACCO CESS PRGM [facility] [place] [facility] Feb 05, 2009 08:29 AM V1-PT DECLINES TOBACCO CESSATION MEDS [facility] [place] [facility] Feb 05, 2009 08:29 AM V1-PT THINKING ABOUT QUIT TOBACCO USE [facility] [place] [facility] Aug 22, 2008 09:04 AM QUIT TOBACCO USE IN PAST YEAR [place] [facility] [place] [facility] NOT INTERESTED IN QUIT TOBACCO USE DE [facility] [place] [facility] Mar 08, 2008 09:37 AM CURRENT SMOKER smokes one pack a day for about 10 years ago. [facility] [place] [facility] Encounter Notes: All associated encounter notes This section contains the clinical notes associated to the Encounter. Date/Time Encounter Note(s) Provider Source Apr 03, 2024 12:00 AM NONVA NOTE: LOCAL TITLE: NON-VA HOSPITALIZATIONS/ER STANDARD TITLE: NONVA NOTE DATE OF NOTE: APR 03, 2024 ENTRY DATE: MAY 04, 2024@15:16:01 AUTHOR: NIKOLAS DALY COSIGNER: URGENCY: STATUS: COMPLETED VistA Imaging - Scanned Document SCANNED DOCUMENT SIGNATURE NOT REQUIRED Electronically Filed: 05/04/2024 by: MERCEDES DALY Block Feeder MERCEDES DALY [facility]
--- OUTSIDE RECORDS SUMMARY | 2024-07-05 03:48 | XMS_ITS | Encounter Summary ---
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 Address [address] [place] [address] Care Team Providers Care Rat Breeder Name Role Phone ROMANA CASTILLO Primary Care [...] Garcia's Name Patient's Relationship to Policy Garcia [facility] (MEDICAID) [place]ICAID [place] HUMAN [facility] May 14, 2009 [id number] SAMPLE,ROCCO MOORE PATIENT [facility] May 14, 2009 [id number] SAMPLE,ROCCO MOORE PATIENT MEDICAID MEDICAID [facility] [place] Jul 26, 2018 MEDICAI D [id number] SAMPLE,ROCCO MOORE PATIENT MEDICARE (WNR) MEDICARE (M) PART A November 24, 2015 PART A [id number] SAMPLE,ROCCO MOORE PATIENT MEDICARE (WNR) MEDICARE (M) PART B November 24, 2015 PART B [id number] SAMPLE,ROCCO MOORE PATIENT Selected Encounter This section includes the information on record at [place] for the Encounter. Date/Time Encounter Type Encounter Description Reason Pro vider Source May 03, 2024 04:20 PM Outpatient Encounter ADMIN PAT ACTIVTIES (MASNONCT) IHE Encounter Template Text not used by [place] Plan of Treatment: Future Appointments (+ 6 months) and Future Tests (+/- 45 days) The Plan of Treatment section includes future care activities for the patient from all [place] treatmentfacilities. This section includes future appointments and future orders which are active, pending or scheduled. Future Appointments This section includes appointments that were scheduled to occur 6 months from the date of the Encounter, up to a maximum of 20 appointments. The data comes from all [place] treatment facilities. Appointment Date/Time Appointment Type Appointme nt Facility Name May 15, 2024 11:30 AM [facility] May 25, 2024 11:30 AM [facility] Jul 13, 2024 10:00 AM [facility] Aug 24, 2024 11:00 AM AMBULATORY - MEDICINE [facility] Lab Results: +/- 30 days of the encounter This section includes the Chemistry and Hematology Lab Results on record with [place] for the patient. Radiology Reports and Pathology Reports are provided separately, in subsequent sections. Lab Results This section contains the Chemistry/Hematology Results that were resulted 30 days before or 30 daysafter the date of the Encounter. Date/Time Source Result Type Result - Unit Interpretation Reference Range Comment May 16, 2024 04:03 PM [facility] METHADONE SCREEN Specimen Type: URINE Comment: BRISSA test are qualitative, any L or H flags only indicate a VA alert was sent. Ordering Provider: RONAN MADSEN Report Released Date/Time: May 16, 2024 01:45 PM Reporting Lab: [facility] [address] [facility] [address] Performing Lab: [facility] [address] [facility] [address] METHADONE SCREEN None detected(Nega tive) L Negative May 16, 2024 04:03 PM [facility] ALCOHOL, ETHYL URINE PANEL Specimen Type: URINE [...] May 16, 2024 01:45 PM Reporting Lab: [address] [address] Performing Lab: [address] [address] ALCOHOL, ETHYL URINE NONE-DETECTED mg/dL NONE-DETEC DIRK, cutoff = 10 mg/dL PH, BRISSA 4.7 [pH] 4-10 CREATININE, BRISSA 76.90 mg/dL >20 SP.GRAVITY, BRISSA 1.015 1.00 3-1.02 0 May 16, 2024 04:03 PM [facility] AMPHETAMINES SCREEN PANEL Specimen Type: URINE Comment: [...] May 16, 2024 01:45 PM Reporting Lab: [address] [address] Performing Lab: [address] [address] AMPHETAMINES SCREEN NONE-DETECTED None-Detec dirk, Cutoff = 1000 ng/mL PH, BRISSA 4.7 [pH] 4-10 CREATININE, BRISSA 76.90 mg/dL >20 SP.GRAVITY, BRISSA 1.015 1.00 3-1.02 0 May 16, 2024 04:03 PM [facility] FENTANYL SCREEN PANEL Specimen Type: URINE Comment: [...] May 16, 2024 01:45 PM Reporting Lab: [address] [address] Performing Lab: [address] [address] FENTANYL SCREEN NONE-DETECTE D ng/mL Negative: Cutoff = 1.00 ng/mL PH, BRISSA 4.7 [pH] 4-10 CREATININE, BRISSA 76.33 mg/dL >20 SP.GRAVITY, BRISSA 1.015 1.00 3-1.02 0 May 16, 2024 04:03 PM [facility] BENZODIAZEPINES SCREEN PANEL Specimen Type: URINE Comment: [...] May 16, 2024 01:45 PM Reporting Lab: [address] [address] Performing Lab: [address] [address] BENZODIAZEPINES SCREEN POSITIVE HH None-Detec dirk, Cutoff = 200 ng/mL PH, BRISSA 4.7 [pH] 4-10 CREATININE, BRISSA 76.90 mg/dL >20 SP.GRAVITY, BRISSA 1.015 1.00 3-1.02 0 May 16, 2024 04:03 PM [facility] BUPRENORPHINE SCREEN PANEL Specimen Type: URINE Comment: [...] May 16, 2024 01:45 PM Reporting Lab: [address] [address] Performing Lab: [address] [address] BUPRENORPHINE (URINE) POSITIVE HH None Detected, Cutoff = 10.0 ng/mL PH, BRISSA 4.7 [pH] 4-10 CREATININE, BRISSA 76.90 mg/dL >20 SP.GRAVITY, BRISSA 1.015 1.00 3-1.02 0 May 16, 2024 04:03 PM [facility] CANNABINOIDS SCREEN PANEL Specimen Type: URINE Comment: [...] may have been adulterated. Ordering Provider: RONAN MADSNE Report Released Date/Time: May 16, 2024 01:45 PM Reporting Lab: [address] [address] Performing Lab: [address] [address] CANNABINOIDS SCREEN NONE-DETECTED None-Detec dirk,Cutoff = 50 ng/mL PH, BRISSA 4.7 [pH] 4-10 CREATININE, BRISSA 76.90 mg/dL >20 SP.GRAVITY, BRISSA 1.015 1.00 3-1.02 0 May 16, 2024 04:03 PM [facility] COCAINE SCREEN PANEL Specimen Type: URINE Comment: [...] May 16, 2024 01:45 PM Reporting Lab: [address] [address] Performing Lab: [address] [address] COCAINE SCREEN NONE-DETECTED N one-Detec dirk,Cutoff = 300 ng/mL PH, BRISSA 4.7 [pH] 4-10 CREATININE, BRISSA 76.90 mg/dL >20 SP.GRAVITY, BRISSA 1.015 1.00 3-1.02 0 May 16, 2024 04:03 PM [facility] OPIATES SCREEN PANEL Specimen Type: URINE Comment: [...] May 16, 2024 01:45 PM Reporting Lab: [address] [address] Performing Lab: [address] [address] OPIATES SCREEN POSITIVE HH None- Detec dirk, Cutoff = 300 ng/mL PH, BRISSA 4.7 [pH] 4-10 CREATININE, BRISSA 76.90 mg/dL >20 SP.GRAVITY, BRISSA 1.015 1.00 3-1.02 0 May 16, 2024 04:03 PM [facility] OXYCODONE SCREEN PANEL Specimen Type: URINE Comment: [...] May 16, 2024 01:45 PM Reporting Lab: [address] [address] Performing Lab: [address] [address] OXYCODONE SCREEN POSITIVE HH Non e-Detec dirk, Cutoff = 100 ng/mL PH, BRISSA 4.7 [pH] 4-10 CREATININE, BRISSA 76.90 mg/dL >20 SP.GRAVITY, BRISSA 1.015 1.00 3-1.02 0 Social History: Smoking Status (Most current) and Tobacco Use (All prior to encounter date) This section includes the most current, and the historical, smoking and tobacco- related health factors from the [place] facility where the Encounter took place. Current Smoking Status This section includes the most current smoking, or tobacco-related health factor, from the [place] facility where the Encounter took place. Date/Time Current Smoking Status Comment [facility] Mar 06, 2024 09:00 AM [place]-TOBACCO QUIT 15 YRS OR MORE [facility] Tobacco Use History This section includes a history of the smoking, or tobacco-related health factors, that were collected on or before the date of the Encounter. The data comes from the [place] facility where the Encounter took place. Date/Time Smoking Status/Tobac co Use Comment Facility Mar 06, 2024 09:00 AM [place]-TOBACCO QUIT 15 YRS OR MORE [facility] Mar 31, 2023 11:00 AM VA-TOBACCO FORMER USER [place] [facility] [place] [facility] Mar 31, 2023 11:00 AM VA-TOBACCO QUIT 1 TO < 5 YRS [place] [facility] [place] [facility] Mar 25, 2022 10:30 AM VA-TOBACCO NEVER USED [place] [facility]TR [place] [facility] Mar 19, 2021 02:00 PM VA-TOBACCO FORMER USER [place] [facility] [place] [facility] Mar 19, 2021 02:00 PM VA-TOBACCO QUIT < 1 YEAR [place] [facility] [place] [facility] Sep 20, 2018 11:24 AM VA-TOBACCO USE [facility] [place] [facility] Oct 21, 2017 08:13 AM QUIT TOBACCO USE IN PAST YEAR [place] [facility] [place] [facility] Dec 30, 2016 08:28 AM QUIT TOBACCO USE 1-7 YEARS AGO [place] [facility] [place] [facility] Jun 04, 2016 08:43 AM QUIT TOBACCO USE 1-7 YEARS AGO [place] [facility] [place] [facility] May 17, 2015 08:45 AM QUIT TOBACCO USE 1-7 YEARS AGO quit 2 years ago. [place] [facility] [place] [facility] Jun 07, 2014 09:25 AM QUIT TOBACCO USE 1-7 YEARS AGO [place] [facility] [place] [facility] November 30, 2013 08:44 AM QUIT TOBACCO USE IN PAST YEAR [place] [facility] [place] [facility] May 22, 2013 10:10 AM QUIT TOBACCO USE IN PAST YEAR [place] [facility] [place] [facility] December 01, 2012 01:54 PM QUIT TOBACCO USE IN PAST YEAR [place] [facility] [place] [facility] Jun 07, 2012 08:16 AM V1-PT DECLINES TOBACCO CESSATION [facility] [place] [facility] Jun 07, 2012 08:16 AM V1-PT THINKING ABOUT QUIT TOBACCO USE [place] [facility] [place] [facility] Jan 05, 2012 09:00 AM CURRENT SMOKER intermittenly [facility] [place] [facility] Jan 05, 2012 09:00 AM V1-PT DECLINES REF TO TOBACCO CESS PRGM [place] [facility] [place] [facility] Jan 05, 2012 09:00 AM V1-PT DECLINES [facility]BACCO [facility]ESS[facility] [place] [facility] Jan 05, 2012 09:00 AM V1-PT THINKING ABOUT QUIT TOBACCO [facility] Feb 17, 2011 09:52 AM V1-PT DECLINES TOBACCO CESSATION MEDS [facility] [place] [facility] Feb 17, 2011 09:52 AM V1-PT THINKING ABOUT QUIT TOBACCO [facility] Aug 13, 2010 11:31 AM QUIT TOBACCO USE IN PAST YEAR [facility] [place] [facility] Feb 19, 2010 01:26 PM QUIT TOBACCO USE IN PAST YEAR [facility] Sep 13, 2009 11:04 AM QUIT TOBACCO USE IN PAST YEAR [facility] Feb 05, 2009 08:29 AM V1-PT DECLINES REF TO TOBACCO CESS [facility] MARY[facility]ET[facility] Feb 05, 2009 08:29 AM V1-PT DECLINES TOBACCO CESSATION [facility]S [facility] Feb 05, 2009 08:29 AM V1-PT THINKING ABOUT QUIT TOBACCO [facility] Aug 22, 2008 09:04 AM QUIT TOBACCO USE IN PAST YEAR [facility]RN [facility] Mar 12, 2008 10:40 AM V1-PT DECLINES REF TO TOBACCO CESS PRGM [facility] Mar 12, 2008 10:40 AM V1-PT DECLINES TOBACCO CESSATION MEDS [facility]RN [facility] Mar 12, 2008 10:40 AM V1-PT NOT INTERESTED IN QUIT TOBACCO USE [facility] Mar 08, 2008 09:37 AM CURRENT SMOKER smokes one pack a day for about 10 years ago. [facility] Encounter Notes: All associated encounter notes This section contains the clinical notes associated to the Encounter. Date/Time Encounter Note(s) Provider Source May 03, 2024 04:20 PM ADMINISTRATIVE NOT E: LOCAL TITLE: CCC: SCHEDULING ADMINISTRATION STANDARD TITLE: ADMINISTRATIVE NOTE DATE OF NOTE: MAY 03, 2024@16:20:59 ENTRY DATE: MAY 03, 2024@16:20:59 AUTHOR: STEPHANIE MAY EXP COSIGNER: URGENCY: STATUS: COMPLETED CCC: SCHEDULING ADMINISTRATION Has ADDENDA Patient Demographics Patient Name: REID QUEZADA Patient Primary Phone: [phone] Patient Primary Address: [place] [address] Patient : 1960 Patient Age: 64 Caller/Recipient Relation to Patient: Caregiver Caller Name: [facility] [place] with [facility] Administrative Administrative Note Reason: Home Health / Long Term Administrative Note Comments: [facility] [place] with [facility] called requesting a call back to do a medication reconciliation. She can be reached back at [phone]. IMPORTANT: This note was created by [facility] Clinical Contact Center staff. Please do not alert the staff member by adding them as a signer for future communications. Alerts are not monitored by this user. /divya/ STEPHANIE MAY [id number] Signed: 05/03/2024 16:21 Receipt Acknowledged By: 05/05/2024 13:03 /divya/ OLGA GREEN, LULI, RN, CNL PRIMARY CARE TEAM NURSE 05/05/2024 11:50 /divya/ Fabiola Hooker RN Primary Care Staff Nurse 05/05/2024 ADDENDUM STATUS: COMPLETED Msg left for /divya/ Fabiola Hooker RN Primary Care Staff Nurse Signed: 05/05/2024 11:50 STEPHANIE MAY [place] [facility]
--- OUTSIDE RECORDS SUMMARY | 2024-07-05 03:48 | XMS_ITS ---
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 Name Role Phone ROMANA CASTILLO Primary [...] Garcia's Name Patient's Relationship to Policy Garcia [facility] (MEDICAID) MEDICAID [facility] May 14, 2009 [id number] SAMPLE,ROCCO MOORE PATIENT [facility] MEDICAID [facility] May 14, 2009 [id number] SAMPLE,ROCCO MOORE PATIENT MEDICAID MEDICAID [facility] Jul 26, 2018 MEDICAI D [id number] SAMPLE,ROCCO MOORE PATIENT MEDICARE (WNR) MEDICARE (M) PART A November 24, 2015 PART A [id number] SAMPLE,ROCCO MOORE PATIENT MEDICARE (WNR) MEDICARE (M) PART B November 24, 2015 PART B [id number] ROCCO QUEZADA PATIENT Selected Encounter This section includes the information on record at [place] for the Encounter. Date/Time Encounter Type Encounter Description Reason Pro vider Source Apr 14, 2024 11:14 AM Outpatient Encounter [facility] Encounter Template Text not used by MS Plan of Treatment: Future Appointments (+ 6 months) and Future Tests (+/- 45 days) The Plan of Treatment section includes future care activities for the patient [facility] [place] [facility] [place] This section includes future appointments and future [...] 02, 2024 11:00 AM AMBULATORY - MEDICINE [facility] May 15, 2024 11:30 AM [facility] May 25, 2024 11:30 AM AMBULATORY - MEDICINE [facility] [place]L [place] [facility] Jul 13, 2024 10:00 AM AMBULATORY - MEDICINE [facility] NTRL [place] [facility] Aug 24, 2024 11:00 AM AMBULATORY - MEDICINE [facility] Social History: Smoking Status (Most current) [...] took place. Date/Time Current Smoking Status Comment [facility] it Mar 06, 2024 09:00 AM MS-TOBACCO FOR[facility]ER [facility] Tobacco Use History This section includes a history of the smoking, or tobacco-related health factors, that were collected on or before the date of the Encounter. The data comes from the [place] facility where the Encounter took place. Date/Time Smoking Status/Tobac co Use Comment Facility Mar 06, 2024 09:00 AM MS-TOBACCO QUIT 15 YRS OR MORE [facility] Mar 31, 2023 11:00 AM VA-TOBACCO FORMER USER [facility] [place] [place] [facility] Mar 31, 2023 11:00 AM VA-TOBACCO QUIT 1 TO < 5 YRS [facility] [place] [facility] Mar 25, 2022 10:30 AM VA-TOBACCO NEVER USED [place] [facility]L [place] [facility] Mar 19, 2021 02:00 PM VA-TOBACCO FORMER USER [place] [facility]TR [place] [facility] Mar 19, 2021 02:00 PM VA-TOBACCO QUIT < 1 YEAR [place] [facility] [place] [facility] Sep 20, 2018 11:24 AM VA-TOBACCO USE DECLINED TO ANSWER [place] [facility] [place] [facility] Oct 21, 2017 08:13 AM QUIT TOBACCO USE IN PAST YEAR [place] [facility] [place] [facility] Dec 30, 2016 08:28 AM QUIT TOBACCO USE 1-7 YEARS AGO [facility] [place] [facility] Jun 04, 2016 08:43 AM QUIT TOBACCO USE 1-7 YEARS AGO [place] [facility] [place] [facility] May 17, 2015 08:45 AM QUIT TOBACCO USE 1-7 YEARS AGO quit 2 years ago. [place] [facility] [place] [facility] Jun 07, 2014 09:25 AM QUIT TOBACCO USE 1-7 YEARS AGO [place] [facility] [place] [facility] November 30, 2013 08:44 AM QUIT TOBACCO USE IN PAST YEAR [place] [facility] [place] [facility] May 22, 2013 10:10 AM QUIT TOBACCO USE IN PAST YEAR [place] [facility] [place] [facility] December 01, 2012 01:54 PM QUIT TOBACCO USE IN PAST YEAR [facility] [place] [facility] Jun 07, 2012 08:16 AM V1-PT DECLINES TOBACCO CESSATION MEDS [place] [facility] [place] [facility] Jun 07, 2012 08:16 AM V1-PT THINKING ABOUT QUIT TOBACCO USE [facility] [place] [facility] Jan 05, 2012 09:00 AM CURRENT SMOKER intermittenly MS CNTR [place] [facility] Jan 05, 2012 09:00 AM V1-PT DECLINES REF TO TOBACCO CESS PRGM [facility]TR [place] [facility] Jan 05, 2012 09:00 AM V1-PT DECLINES TOBACCO CESSATION MEDS [facility] [place] [facility] Jan 05, 2012 09:00 AM V1-PT THINKING ABOUT QUIT TOBACCO USE [facility] Feb 17, 2011 09:52 AM V1-PT DECLINES TOBACCO CESSATION MEDS [facility] LUZ MARIATRN [facility] Feb 17, 2011 09:52 AM V1-PT THINKING ABOUT QUIT TOBACCO USE [facility] Aug 13, 2010 11:31 AM QUIT TOBACCO USE IN PAST YEAR [facility] Feb 19, 2010 01:26 PM QUIT TOBACCO USE IN PAST YEAR [facility] Sep 13, 2009 11:04 AM QUIT TOBACCO USE IN PAST YEAR [facility] Feb 05, 2009 08:29 AM V1-PT DECLINES REF TO TOBACCO CESS PRGM [facility] Feb 05, 2009 08:29 AM V1-PT DECLINES TOBACCO CESSATION MEDS [facility] Feb 05, 2009 08:29 AM V1-PT THINKING ABOUT QUIT TOBACCO USE [facility] Aug 22, 2008 09:04 AM QUIT TOBACCO USE IN PAST YEAR [facility] Mar 12, 2008 10:40 AM V1-PT DECLINES REF TO TOBACCO CESS PRGM [facility] Mar 12, 2008 10:40 AM V1-PT DECLINES TOBACCO CESSATION MEDS [facility] Mar 12, 2008 10:40 AM V1-PT NOT INTERESTED IN QUIT TOBACCO USE [facility] Mar 08, 2008 09:37 AM CURRENT SMOKER smokes one pack a day for about 10 years ago. [facility] Encounter Notes: All associated encounter notes This section contains the clinical notes associated to the Encounter. Date/Time Encounter Note(s) Provider Source Apr 14, 2024 11:14 AM ADMINISTRATIVE NOT E: LOCAL TITLE: ADMINISTRATIVE NOTE STANDARD TITLE: ADMINISTRATIVE NOTE DATE OF NOTE: APR 14, 2024@11:14 ENTRY DATE: APR 14, 2024@11:14:39 AUTHOR: KOURTNEY BAILEY EXP COSIGNER: URGENCY: STATUS: COMPLETED Director Immunology call to schedule next appt., [place] stay and I quote that she will call to schedule appt. /divya/ KOURTNEY BAILEY ADVANCED BRANCH LEAD Signed: 04/14/2024 11:15 KOURTNEY BAILEY [facility]
--- OUTSIDE RECORDS SUMMARY | 2024-07-05 03:48 | XMS_ITS | Encounter Summary ---
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 [place] Organization Department of [place] Address [address] [place] [id number] Care Team Providers Care Preparer Samples And Repairs Name Role Phone ROMANA CASTILLO Primary Care [...] Garcia's Name Patient's Relationship to Policy Garcia [facility] (MEDICAID) [facility] May 14, 2009 [id number] SAMPLE,ROCCO MOORE PATIENT [facility]ICAID [facility] May 14, 2009 [id number] SAMPLE,ROCCO MOORE PATIENT MEDICAID MEDICAID [facility] Jul 26, 2018 MEDICAI D [id number] SAMPLE,ROCCO MOORE PATIENT MEDICARE (WNR) MEDICARE (M) PART A November 24, 2015 PART A [id number] SAMPLE,ROCCO MOORE PATIENT MEDICARE (WNR) MEDICARE (M) PART B November 24, 2015 PART B [id number] SAMPLEROCCO PATIENT Selected Encounter This section includes the information on record at [place] for the Encounter. Date/Time Encounter Type Encounter Description Reason Pro vider Source May 09, 2024 08:56 AM Outpatient Encounter [facility] Encounter [...] 15, 2024 11:30 AM [facility] May 25, 2024 11:30 AM AMBULATORY - MEDICINE [facility] Jul 13, 2024 10:00 AM AMBULATORY - MEDICINE [facility] Aug 24, 2024 11:00 AM AMBULATORY - MEDICINE [facility] Lab Results: +/- 30 days of the encounter This section includes the Chemistry and Hematology Lab Results on record with MA for the patient. Radiology Reports and Pathology Reports are provided separately, in subsequent sections. Lab Results This section contains the Chemistry/Hematology Results that were resulted 30 days before or 30 daysafter the date of the Encounter. Date/Time Source Result Type Result - Unit Interpretation Reference Range Comment May 16, 2024 04:03 PM [facility] METHADONE SCREEN Specimen Type: URINE Comment: BRISSA test are qualitative, any L or H flags only indicate a [place] alert was sent. Ordering Provider: RONAN MADSEN Report Released Date/Time: May 16, 2024 01:45 PM Reporting Lab: [facility] [address] [facility] [address] Performing Lab: [facility] [address] [address] METHADONE SCREEN None detected(Nega tive) L Negative May 16, 2024 04:03 PM [facility] AMPHETAMINES SCREEN PANEL Specimen Type: URINE [...] 16, 2024 01:45 PM Reporting Lab: [address] [address] Performing Lab: [address] [address] AMPHETAMINES SCREEN NONE-DETECTED None-Detec dirk, Cutoff = 1000 ng/mL PH, BRISSA 4.7 [pH] 4-10 CREATININE, BRISSA 76.90 mg/dL >20 SP.GRAVITY, BRISSA 1.015 1.00 3-1.02 0 May 16, 2024 04:03 PM [facility] ALCOHOL, ETHYL URINE PANEL Specimen Type: [...] 16, 2024 01:45 PM Reporting Lab: [address] [address] Performing Lab: [address] [address] ALCOHOL, ETHYL URINE NONE-DETECTED mg/dL NONE-DETEC DIRK, cutoff = 10 mg/dL PH, BRISSA 4.7 [pH] 4-10 CREATININE, BRISSA 76.90 mg/dL >20 SP.GRAVITY, BRISSA 1.015 1.00 3-1.02 0 May 16, 2024 04:03 PM [facility] BENZODIAZEPINES SCREEN PANEL Specimen Type: URINE [...] 16, 2024 01:45 PM Reporting Lab: [address] [address] Performing Lab: [address] [address] BENZODIAZEPINES SCREEN POSITIVE HH None-Detec dirk, Cutoff = 200 ng/mL PH, BRISSA 4.7 [pH] 4-10 CREATININE, BRISSA 76.90 mg/dL >20 SP.GRAVITY, BRISSA 1.015 1.00 3-1.02 0 May 16, 2024 04:03 PM [facility] FENTANYL SCREEN PANEL Specimen Type: URINE [...] 16, 2024 01:45 PM Reporting Lab: [address] [address] Performing Lab: [address] [address] FENTANYL SCREEN NONE-DETECTE D ng/mL Negative: Cutoff = 1.00 ng/mL PH, BRISSA 4.7 [pH] 4-10 CREATININE, BRISSA 76.33 mg/dL >20 SP.GRAVITY, BRISSA 1.015 1.00 3-1.02 0 May 16, 2024 04:03 PM [facility] BUPRENORPHINE SCREEN PANEL Specimen Type: URINE [...] 16, 2024 01:45 PM Reporting Lab: [address] [address] Performing Lab: [address] [address] BUPRENORPHINE (URINE) POSITIVE HH None Detected, Cutoff = 10.0 ng/mL PH, BRISSA 4.7 [pH] 4-10 CREATININE, BRISSA 76.90 mg/dL >20 SP.GRAVITY, BRISSA 1.015 1.00 3-1.02 0 May 16, 2024 04:03 PM [facility] CANNABINOIDS SCREEN PANEL Specimen Type: URINE [...] 16, 2024 01:45 PM Reporting Lab: [address] [address] Performing Lab: [address] [address] CANNABINOIDS SCREEN NONE-DETECTED None-Detec dirk,Cutoff = 50 ng/mL PH, BRISSA 4.7 [pH] 4-10 CREATININE, BRISSA 76.90 mg/dL >20 SP.GRAVITY, BRISSA 1.015 1.00 3-1.02 0 May 16, 2024 04:03 PM [facility] COCAINE SCREEN PANEL Specimen Type: URINE [...] 16, 2024 01:45 PM Reporting Lab: [address] [address] Performing Lab: [address] [address] COCAINE SCREEN NONE-DETECTED N one-Detec dirk,Cutoff = 300 ng/mL PH, BRISSA 4.7 [pH] 4-10 CREATININE, BRISSA 76.90 mg/dL >20 SP.GRAVITY, BRISSA 1.015 1.00 3-1.02 0 May 16, 2024 04:03 PM [facility] OPIATES SCREEN PANEL Specimen Type: URINE [...] 16, 2024 01:45 PM Reporting Lab: [address] [address] Performing Lab: [address] [address] OPIATES SCREEN POSITIVE HH None- Detec dirk, Cutoff = 300 ng/mL PH, BRISSA 4.7 [pH] 4-10 CREATININE, BRISSA 76.90 mg/dL >20 SP.GRAVITY, BRISSA 1.015 1.00 3-1.02 0 May 16, 2024 04:03 PM [facility] OXYCODONE SCREEN PANEL Specimen Type: URINE [...] 16, 2024 01:45 PM Reporting Lab: [address] [address] Performing Lab: [address] [phone] OXYCODONE SCREEN POSITIVE HH Non e-Detec dirk, [...] took place. Date/Time Current Smoking Status Comment [facility] Mar 06, 2024 09:00 AM MA-TOBACCO QUIT 15 YRS OR MORE [facility] Tobacco Use History This section includes a history of the smoking, or tobacco-related health factors, that were collected on or before the date of the Encounter. The data comes from the [place] facility where the Encounter took place. Date/Time Smoking Status/Tobac co Use Comment Facility Mar 06, 2024 09:00 AM MA-TOBACCO QUIT 15 YRS OR MORE [facility] Mar 31, 2023 11:00 AM VA-TOBACCO FORMER USER [facility] [place] [facility] Mar 31, 2023 11:00 AM VA-TOBACCO QUIT 1 TO < 5 YRS [facility] [place] [facility] Mar 25, 2022 10:30 AM VA-TOBACCO NEVER USED [place] [facility] [place] [facility] Mar 19, 2021 02:00 PM VA-TOBACCO FORMER USER [place] [facility] [place] [facility] Mar 19, 2021 02:00 PM VA-TOBACCO QUIT < 1 YEAR [facility] [place] [facility] Sep 20, 2018 11:24 AM VA-TOBACCO USE DECLINED TO ANSWER [place] [facility] [place] [facility] Oct 21, 2017 08:13 AM QUIT TOBACCO USE IN PAST YEAR [facility] [place] [facility] Dec 30, 2016 08:28 AM QUIT TOBACCO USE 1-7 YEARS AGO [facility] [place] [facility] Jun 04, 2016 08:43 AM QUIT TOBACCO USE 1-7 YEARS AGO [facility] [place] [facility] May 17, 2015 08:45 AM QUIT TOBACCO USE 1-7 YEARS AGO quit 2 years ago. [place] [facility] [place] [facility] Jun 07, 2014 09:25 AM QUIT TOBACCO USE 1-7 YEARS AGO [facility] [place] [facility] November 30, 2013 08:44 AM QUIT TOBACCO USE IN PAST YEAR [place] [facility] [place] [facility] May 22, 2013 10:10 AM QUIT TOBACCO USE IN PAST YEAR [facility] [place] [facility] December 01, 2012 01:54 PM QUIT TOBACCO USE IN PAST YEAR [facility] [place] [facility] Jun 07, 2012 08:16 AM V1-PT DECLINES TOBACCO CESSATION MEDS [facility] [place] [facility] Jun 07, 2012 08:16 AM V1-PT THINKING ABOUT QUIT TOBACCO USE [facility] [place] [facility] Jan 05, 2012 09:00 AM CURRENT SMOKER intermittenly [place] [facility] [place] [facility] Jan 05, 2012 09:00 AM V1-PT DECLINES REF TO TOBACCO CESS PRGM [facility] [place] [facility] Jan 05, 2012 09:00 AM V1-PT DECLINES TOBACCO CESSATION MEDS [facility] [place] [facility] Jan 05, 2012 09:00 AM V1-PT THINKING ABOUT QUIT TOBACCO [facility] Feb 17, 2011 09:52 AM V1-PT DECLINES TOBACCO CESSATION MEDS [facility] LU[facility] MARIATRN [facility] Feb 17, 2011 09:52 AM V1-PT THINKING ABOUT QUIT TOBACCO USE [facility] Aug 13, 2010 11:31 AM QUIT TOBACCO USE IN PAST YEAR [facility]TRN [facility] Feb 19, 2010 01:26 PM QUIT TOBACCO USE IN PAST YEAR [facility] Sep 13, 2009 11:04 AM QUIT TOBACCO USE IN PAST YEAR [facility]N [facility] Feb 05, 2009 08:29 AM V1-PT DECLINES REF TO TOBACCO CESS PRGM [facility] Feb 05, 2009 08:29 AM V1-PT DECLINES TOBACCO CESSATION MEDS [facility] Feb 05, 2009 08:29 AM V1-PT THINKING ABOUT QUIT TOBACCO USE [facility] LUZ MARIATRN [facility] Aug 22, 2008 09:04 AM QUIT TOBACCO USE IN PAST YEAR [facility] Mar 12, 2008 10:40 AM V1-PT DECLINES REF TO TOBACCO CESS PRGM [facility] HOSPITALTRN [facility] Mar 12, 2008 10:40 AM V1-PT DECLINES TOBACCO CESSATION MEDS [facility] Mar 12, 2008 10:40 AM V1-PT NOT INTERESTED IN QUIT TOBACCO USE [facility] Mar 08, 2008 09:37 AM CURRENT SMOKER smokes one pack a day for about 10 years ago. [facility] Encounter Notes: All associated encounter notes This section contains the clinical notes associated to the Encounter. Date/Time Encounter Note(s) Provider Source May 09, 2024 08:56 AM TELEPHONE ENCOUNTE R NOTE: LOCAL TITLE: TELEPHONE NOTE/SPECIALTY CLINIC STANDARD TITLE: TELEPHONE ENCOUNTER NOTE DATE OF NOTE: MAY 09, 2024@08:56 ENTRY DATE: MAY 09, 2024@08:56:31 AUTHOR: SAE,LORI STEP EXP COSIGNER: URGENCY: STATUS: COMPLETED Called and spoke with pt to remind them that they have a VVC appt with the Pain clinic on 05/10/2024 at 0900. 

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
--- OUTSIDE RECORDS SUMMARY | 2024-07-05 03:49 | XMS_ITS ---
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 [place] [facility] [place] Address [address] [place] [id number] Care Team Providers Care Ballast Inspector Name Role Phone ROMANA CASTILLO Primary Care [...] Garcia's Name Patient's Relationship to Policy Garcia [facility] (MEDICAID) [facility] May 14, 2009 [id number] SAMPLE,ROCCO MOORE PATIENT [facility] MEDICAID [facility] May 14, 2009 [id number] SAMPLE,ROCCO MOORE PATIENT MEDICAID MEDICAID [facility] Jul 26, 2018 MEDICAI D [id number] SAMPLE,ROCCO MOORE PATIENT MEDICARE (WNR) MEDICARE (M) PART A November 24, 2015 PART A [id number] SAMPLE,ROCCO MOORE PATIENT MEDICARE (WNR) MEDICARE (M) PART B November 24, 2015 PART B [id number] SAMPLEROCCO PATIENT Selected Encounter This section includes the information on record at [place] for the Encounter. Date/Time Encounter Type Encounter Description Reason Pro vider Source May 10, 2024 09:34 AM Outpatient Encounter PAIN CLINIC [facility] Encounter [...] 11:30 AM [facility] May 25, 2024 11:30 AM AM[facility]ULAT[facility] - [facility]IC[facility] Jul 13, 2024 10:00 AM AMBULATORY - MEDICINE [facility] Aug 24, 2024 11:00 AM AMBULATORY - MEDICINE [facility] Lab Results: +/- 30 days of the encounter This section includes the Chemistry and Hematology Lab Results on record with [place] for the patient. Radiology Reports and Pathology Reports are provided separately, in subsequent sections. Lab Results This section contains the Chemistry/Hematology Results that were resulted 30 days before or 30 daysafter the date of the Encounter. Date/Time Source Result Type Result - Unit Interpretation Reference Range Comment May 16, 2024 04:03 PM [facility] METHADONE SCREEN Specimen Type: URINE Comment: BRISSA test are qualitative, any L or H flags only indicate a [place] alert was sent. Ordering Provider: RONAN MADSEN Report Released Date/Time: May 16, 2024 01:45 PM Reporting Lab: [facility] [address] [facility] [address] Performing Lab: [facility] [address] [facility] [address] METHADONE SCREEN None detected(Nega tive) L Negative May 16, 2024 04:03 PM [facility] ALCOHOL, ETHYL URINE PANEL Specimen [...] May 16, 2024 01:45 PM Reporting Lab: [address] [address] Performing Lab: [address] [address] ALCOHOL, ETHYL URINE NONE-DETECTED mg/dL NONE-DETEC DIRK, cutoff = 10 mg/dL PH, BRISSA 4.7 [pH] 4-10 CREATININE, BRISSA 76.90 mg/dL >20 SP.GRAVITY, BRISSA 1.015 1.00 3-1.02 0 May 16, 2024 04:03 PM [facility] AMPHETAMINES SCREEN PANEL Specimen Type: [...] May 16, 2024 01:45 PM Reporting Lab: [address] [address] Performing Lab: [address] [address] AMPHETAMINES SCREEN NONE-DETECTED None-Detec dirk, Cutoff = 1000 ng/mL PH, BRISSA 4.7 [pH] 4-10 CREATININE, BRISSA 76.90 mg/dL >20 SP.GRAVITY, BRISSA 1.015 1.00 3-1.02 0 May 16, 2024 04:03 PM [facility] FENTANYL SCREEN PANEL Specimen Type: [...] May 16, 2024 01:45 PM Reporting Lab: [address] [address] Performing Lab: [address] [address] FENTANYL SCREEN NONE-DETECTE D ng/mL Negative: Cutoff = 1.00 ng/mL PH, BRISSA 4.7 [pH] 4-10 CREATININE, BRISSA 76.33 mg/dL >20 SP.GRAVITY, BRISSA 1.015 1.00 3-1.02 0 May 16, 2024 04:03 PM [facility] CANNABINOIDS SCREEN PANEL Specimen Type: [...] May 16, 2024 01:45 PM Reporting Lab: [address] [address] Performing Lab: [address] [address] CANNABINOIDS SCREEN NONE-DETECTED None-Detec dirk,Cutoff = 50 ng/mL PH, BRISSA 4.7 [pH] 4-10 CREATININE, BRISSA 76.90 mg/dL >20 SP.GRAVITY, BRISSA 1.015 1.00 3-1.02 0 May 16, 2024 04:03 PM [facility] BUPRENORPHINE SCREEN PANEL Specimen Type: [...] May 16, 2024 01:45 PM Reporting Lab: [address] [address] Performing Lab: [address] [address] BUPRENORPHINE (URINE) POSITIVE HH None Detected, Cutoff = 10.0 ng/mL PH, BRISSA 4.7 [pH] 4-10 CREATININE, BRISSA 76.90 mg/dL >20 SP.GRAVITY, BRISSA 1.015 1.00 3-1.02 0 May 16, 2024 04:03 PM [facility] BENZODIAZEPINES SCREEN PANEL Specimen Type: [...] May 16, 2024 01:45 PM Reporting Lab: [address] [address] Performing Lab: [address] [address] BENZODIAZEPINES SCREEN POSITIVE HH None-Detec dirk, Cutoff = 200 ng/mL PH, BRISSA 4.7 [pH] 4-10 CREATININE, BRISSA 76.90 mg/dL >20 SP.GRAVITY, BRISSA 1.015 1.00 3-1.02 0 May 16, 2024 04:03 PM [facility] COCAINE SCREEN PANEL Specimen Type: [...] May 16, 2024 01:45 PM Reporting Lab: [address] [address] Performing Lab: [address] [address] COCAINE SCREEN NONE-DETECTED N one-Detec dirk,Cutoff = 300 ng/mL PH, BRISSA 4.7 [pH] 4-10 CREATININE, BRISSA 76.90 mg/dL >20 SP.GRAVITY, BRISSA 1.015 1.00 3-1.02 0 May 16, 2024 04:03 PM [facility] OPIATES SCREEN PANEL Specimen Type: [...] May 16, 2024 01:45 PM Reporting Lab: [address] [address] Performing Lab: [address] [address] OPIATES SCREEN POSITIVE HH None- Detec dirk, Cutoff = 300 ng/mL PH, BRISSA 4.7 [pH] 4-10 CREATININE, BRISSA 76.90 mg/dL >20 SP.GRAVITY, BRISSA 1.015 1.00 3-1.02 0 May 16, 2024 04:03 PM [facility] OXYCODONE SCREEN PANEL Specimen Type: [...] May 16, 2024 01:45 PM Reporting Lab: [address] [address] Performing Lab: [address] [address] OXYCODONE SCREEN POSITIVE HH Non e-Detec dirk, [...] took place. Date/Time Current Smoking Status Comment [facility] Mar 06, 2024 09:00 AM [place]-TOBACCO QUIT 15 YRS OR MORE [facility] Tobacco Use History This section includes a history of the smoking, or tobacco-related health factors, that were collected on or before the date of the Encounter. The data comes from the [place] facility where the Encounter took place. Date/Time Smoking Status/Tobac co Use Comment Facility Mar 06, 2024 09:00 AM [place]-TOBACCO QUIT 15 YRS OR MORE [facility] Mar 31, 2023 11:00 AM [place]-TOBACCO FORMER USER [facility] [place] [facility] Mar 31, 2023 11:00 AM VA-TOBACCO QUIT 1 TO < 5 YRS [facility] [place] [facility] Mar 25, 2022 10:30 AM VA-TOBACCO NEVER USED [place] [facility] [place] [facility] Mar 19, 2021 02:00 PM VA-TOBACCO FORMER USER [place] [facility] [place] [facility] Mar 19, 2021 02:00 PM VA-TOBACCO QUIT < 1 YEAR [place] [facility] [place] [facility] Sep 20, 2018 11:24 AM VA-TOBACCO USE DECLINED TO ANSWER [place] [facility] [place] [facility] Oct 21, 2017 08:13 AM QUIT TOBACCO USE IN PAST YEAR [place] [facility] [place] [facility] Dec 30, 2016 08:28 AM QUIT TOBACCO USE 1-7 YEARS AGO [place] [facility] [place] [facility] Jun 04, 2016 08:43 AM QUIT TOBACCO USE 1-7 YEARS AGO [place] [facility] [place] [facility] May 17, 2015 08:45 AM QUIT TOBACCO USE 1-7 YEARS AGO quit 2 years ago. [place] [facility] [place] [facility] Jun 07, 2014 09:25 AM QUIT TOBACCO USE 1-7 YEARS AGO [place] [facility] [place] [facility] November 30, 2013 08:44 AM QUIT TOBACCO USE IN PAST YEAR [place] [facility] [place] [facility] May 22, 2013 10:10 AM QUIT TOBACCO USE IN PAST YEAR [place] [facility] [place] [facility] December 01, 2012 01:54 PM QUIT TOBACCO USE IN PAST YEAR [place] [facility] [place] [facility] Jun 07, 2012 08:16 AM V1-PT DECLINES TOBACCO CESSATION MEDS [place] [facility] [place] [facility] Jun 07, 2012 08:16 AM V1-PT THINKING ABOUT QUIT TOBACCO USE [place] [facility] [place] [facility] Jan 05, 2012 09:00 AM CURRENT SMOKER intermittenly [place] [facility] [place] [facility] Jan 05, 2012 09:00 AM V1-PT DECLINES REF TO TOBACCO CESS PRGM [place] [facility] [place] [facility] Jan 05, 2012 09:00 AM V1-PT DECLINES TOBACCO CESSATION MEDS [facility] [place] [facility] Jan 05, 2012 09:00 AM V1-PT THINKING ABOUT QUIT [facility]BACCO [facility] Feb 17, 2011 09:52 AM V1-PT DECLINES [facility]BACCO [facility] Feb 17, 2011 09:52 AM V1-PT THINKING ABOUT QUIT TOBACCO [facility] Aug 13, 2010 11:31 AM QUIT TOBACCO USE IN PAST YEAR [facility] Feb 19, 2010 01:26 PM QUIT TOBACCO USE IN PAST YEAR [facility] Sep 13, 2009 11:04 AM QUIT TOBACCO USE IN PAST YEAR [facility] Feb 05, 2009 08:29 AM V1-PT DECLINES REF TO TOBACCO CESS PR[facility] Feb 05, 2009 08:29 AM V1-PT DECLINES TOBACCO CESSATION MEDS [facility] Feb 05, 2009 08:29 AM V1-PT THINKING ABOUT QUIT TOBACCO [facility] LUZ MARIATRN [facility] Aug 22, 2008 09:04 AM QUIT TOBACCO USE IN PAST YEAR [facility] Mar 12, 2008 10:40 AM V1-PT DECLINES REF TO TOBACCO CESS PRGM [facility] Mar 12, 2008 10:40 AM V1-PT DECLINES TOBACCO CESSATION MEDS [facility] LUZ MARIATRN [facility] Mar 12, 2008 10:40 AM V1-PT NOT INTERESTED IN QUIT [facility]ACCO [facility] LUZ MAR[facility]RN [facility] Mar 08, 2008 09:37 AM CURRENT SMOKER smokes one pack a day for about 10 years ago. [facility] Encounter Notes: All associated encounter notes This section contains the clinical notes associated to the Encounter. Date/Time Encounter Note(s) Provider Source May 10, 2024 09:35 AM ADMINISTRATIVE NOTE: LOCAL TITLE: ADMINISTRATIVE RECALL NOTE STANDARD TITLE: ADMINISTRATIVE NOTE DATE OF NOTE: MAY 10, 2024@09:35 ENTRY DATE: MAY 10, 2024@09:35:08 AUTHOR: LORI QUEVEDO EXP COSIGNER: URGENCY: STATUS: COMPLETED RTC orders: Unable to contact patient: Attempts to contact: 1st attempt: Left voicemail 2nd attempt: Letter mailed Disposition on Apr 3rd attempt: 4th attempt: pid 05/10/2024 /divya/ LORI QUEVEDO [employer] ENGINEER Signed: 05/10/2024 09:35 LORI QUEVEDO [place] [facility] [place] [facility] May 10, 2024 09:34 AM LETTERS: LOCAL TITLE: PATIENT LETTER (B) STANDARD TITLE: LETTERS DATE OF NOTE: MAY 10, 2024@09:34 ENTRY DATE: MAY 10, 2024@09:34:33 AUTHOR: LORI QUEVEDO COSIGNER: URGENCY: STATUS: COMPLETED [facility] Toll Free Number [facility] scheduling can be reached at ext. [phone] [facility]- ext. [phone] [facility]- ext. [phone] [facility]- ext. [phone] MAY 10, 2024 REID SAMPLE [address] [place], [place] [address] Dear SAMPLE,REID Thank you for choosing the [facility] of [facility]) [facility] as your primary choice for health care. As a partner in your health care, we are contacting you in writing since we have been unsuccessful in our attempts to reach you to date. We want to assure you we are doing everything possible to schedule Veterans for their [place] medical care appointments. Our records indicate you are due for an appointment in pain clinic. If you would like to be seen, please contact [place] Call Center at ext. [phone] to reschedule an appointment. 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 Sincerely, [facility] [address] [facility] [address] [place] [address] [place] [address] [facility] [address] [facility] [address] [place], [place] [id number] [place] [address] ext. [phone] [facility] [address] [address] [place] [address] ext. [phone] [facility] [address] [place] [address] ext. [phone] LORI QUEVEDO [facility]
--- OUTSIDE RECORDS SUMMARY | 2024-07-05 03:49 | XMS_ITS | Encounter Summary ---
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 [place] Organization [facility] [place] Address [address] [place] [id number] Care Team Providers Care Airport Operations Coordinator Name Role Phone ROMANA CASTILLO Primary [...] Name Patient's Relationship to Policy Garcia [facility] (MEDICAID) [facility] May 14, 2009 [id number] SAMPLE,ROCCO MOORE PATIENT [facility] May 14, 2009 [id number] SAMPLE,ROCCO MOORE PATIENT MEDICAID MEDICAID [facility] ST[facility] ESTEFANY Jul 26, 2018 MEDICAI D [id number] SAMPLE,ROCCO MOORE PATIENT MEDICARE (WNR) MEDICARE (M) PART A November 24, 2015 PART A [id number] SAMPLE,ROCCO MOORE PATIENT MEDICARE (WNR) MEDICARE (M) PART B November 24, 2015 PART B [id number] SAMPLEROCCO PATIENT Selected Encounter This section includes the information on record at [place] for the Encounter. Date/Time Encounter Type Encounter Description Reason Pro vider Source May 10, 2024 09:00 AM Outpatient Encounter [facility] Encounter Template Text not used by [place] Plan of Treatment: Future Appointments (+ 6 months) and Future Tests (+/- 45 days) The Plan of Treatment section includes future care activities for the patient from all [place] treatmentfacilities. This section includes future appointments and [...] 15, 2024 11:30 AM [facility] May 25, 2024 11:30 AM AM[facility]ULAT[facility] - MEDICINE [facility] Jul 13, 2024 10:00 AM AMBULATORY - MEDICINE [facility] Aug 24, 2024 11:00 AM AMBULATORY - [facility] Lab Results: +/- 30 days of the encounter This section includes the Chemistry and Hematology Lab Results on record with [place] for the patient. Radiology Reports and Pathology Reports are provided separately, in subsequent sections. Lab Results This section contains the Chemistry/Hematology Results that were resulted 30 days before or 30 daysafter the date of the Encounter. Date/Time Source Result Type Result - Unit Interpretation Reference Range Comment May 16, 2024 04:03 PM [facility] METHADONE SCREEN Specimen Type: URINE Comment: BRISSA test are qualitative, any L or H flags only indicate a [place] alert was sent. Ordering Provider: RONAN MADSEN Report Released Date/Time: May 16, 2024 01:45 PM Reporting Lab: [facility] [address] [facility] [address] Performing Lab: [facility] [address] [facility] [address] METHADONE SCREEN None detected(Nega tive) L Negative May 16, 2024 04:03 PM [facility] AMPHETAMINES SCREEN PANEL Specimen Type: URINE [...] May 16, 2024 01:45 PM Reporting Lab: [address] [address] Performing Lab: [address] [address] AMPHETAMINES SCREEN NONE-DETECTED None-Detec dirk, Cutoff = 1000 ng/mL PH, BRISSA 4.7 [pH] 4-10 CREATININE, BRISSA 76.90 mg/dL >20 SP.GRAVITY, BRISSA 1.015 1.00 3-1.02 0 May 16, 2024 04:03 PM [facility] ALCOHOL, ETHYL URINE PANEL Specimen Type: [...] May 16, 2024 01:45 PM Reporting Lab: [address] [address] Performing Lab: [address] [address] ALCOHOL, ETHYL URINE NONE-DETECTED mg/dL NONE-DETEC DIRK, cutoff = 10 mg/dL PH, BRISSA 4.7 [pH] 4-10 CREATININE, BRISSA 76.90 mg/dL >20 SP.GRAVITY, BRISSA 1.015 1.00 3-1.02 0 May 16, 2024 04:03 PM [facility] FENTANYL SCREEN PANEL Specimen Type: URINE [...] May 16, 2024 01:45 PM Reporting Lab: [address] [address] Performing Lab: [address] [address] FENTANYL SCREEN NONE-DETECTE D ng/mL Negative: Cutoff = 1.00 ng/mL PH, BRISSA 4.7 [pH] 4-10 CREATININE, BRISSA 76.33 mg/dL >20 SP.GRAVITY, BRISSA 1.015 1.00 3-1.02 0 May 16, 2024 04:03 PM [facility] CANNABINOIDS SCREEN PANEL Specimen Type: URINE [...] May 16, 2024 01:45 PM Reporting Lab: [address] [address] Performing Lab: [address] [address] CANNABINOIDS SCREEN NONE-DETECTED None-Detec dirk,Cutoff = 50 ng/mL PH, BRISSA 4.7 [pH] 4-10 CREATININE, BRISSA 76.90 mg/dL >20 SP.GRAVITY, BRISSA 1.015 1.00 3-1.02 0 May 16, 2024 04:03 PM [facility] BENZODIAZEPINES SCREEN PANEL Specimen Type: URINE [...] May 16, 2024 01:45 PM Reporting Lab: [address] [address] Performing Lab: [address] [address] BENZODIAZEPINES SCREEN POSITIVE HH None-Detec dirk, Cutoff = 200 ng/mL PH, BRISSA 4.7 [pH] 4-10 CREATININE, BRISSA 76.90 mg/dL >20 SP.GRAVITY, BRISSA 1.015 1.00 3-1.02 0 May 16, 2024 04:03 PM [facility] BUPRENORPHINE SCREEN PANEL Specimen Type: URINE [...] May 16, 2024 01:45 PM Reporting Lab: [address] [address] Performing Lab: [address] [address] BUPRENORPHINE (URINE) POSITIVE HH None Detected, Cutoff = 10.0 ng/mL PH, BRISSA 4.7 [pH] 4-10 CREATININE, BRISSA 76.90 mg/dL >20 SP.GRAVITY, BRISSA 1.015 1.00 3-1.02 0 May 16, 2024 04:03 PM [facility] COCAINE SCREEN PANEL Specimen Type: URINE [...] May 16, 2024 01:45 PM Reporting Lab: [address] [address] Performing Lab: [address] [address] COCAINE SCREEN NONE-DETECTED N one-Detec dirk,Cutoff = 300 ng/mL PH, BRISSA 4.7 [pH] 4-10 CREATININE, BRISSA 76.90 mg/dL >20 SP.GRAVITY, BRISSA 1.015 1.00 3-1.02 0 May 16, 2024 04:03 PM [facility] OPIATES SCREEN PANEL Specimen Type: URINE [...] May 16, 2024 01:45 PM Reporting Lab: [address] [address] Performing Lab: [address] [address] OPIATES SCREEN POSITIVE HH None- Detec dirk, Cutoff = 300 ng/mL PH, BRISSA 4.7 [pH] 4-10 CREATININE, BRISSA 76.90 mg/dL >20 SP.GRAVITY, BRISSA 1.015 1.00 3-1.02 0 May 16, 2024 04:03 PM [facility] OXYCODONE SCREEN PANEL Specimen Type: URINE [...] May 16, 2024 01:45 PM Reporting Lab: [facility] [address] [facility] [address] Performing Lab: [address] [address] OXYCODONE SCREEN POSITIVE HH Non e-Detec dirk, [...] took place. Date/Time Current Smoking Status Comment [facility] Mar 06, 2024 09:00 AM VA-TOBACCO FORMER USER [facility] Tobacco Use History This section includes a history of the smoking, or tobacco-related health factors, that were collected on or before the date of the Encounter. The data comes from the [place] facility where the Encounter took place. Date/Time Smoking Status/Tobac co Use Comment [facility] Mar 06, 2024 09:00 AM [place]-TOBACCO QUIT 15 YRS OR MORE [facility] Mar 31, 2023 11:00 AM VA-TOBACCO FORMER USER [facility] [place] [facility] Mar 31, 2023 11:00 AM VA-TOBACCO QUIT 1 TO < 5 YRS [facility] [place] [facility] Mar 25, 2022 10:30 AM VA-TOBACCO NEVER USED [facility] [place] [facility] Mar 19, 2021 02:00 PM VA-TOBACCO FORMER USER [facility] [place] [facility] Mar 19, 2021 02:00 PM VA-TOBACCO QUIT < 1 YEAR [facility] [place] [facility] Sep 20, 2018 11:24 AM VA-TOBACCO USE DECLINED TO ANSWER [facility] [place] [facility] Oct 21, 2017 08:13 AM QUIT TOBACCO USE IN PAST YEAR [facility] [place] [facility] Dec 30, 2016 08:28 AM QUIT TOBACCO USE 1-7 YEARS AGO [facility] [place] [facility] Jun 04, 2016 08:43 AM QUIT TOBACCO USE 1-7 YEARS AGO [facility] [place] [facility] May 17, 2015 08:45 AM QUIT TOBACCO USE 1-7 YEARS AGO quit 2 years ago. [facility] [place] [facility] Jun 07, 2014 09:25 AM QUIT TOBACCO USE 1-7 YEARS AGO [facility] [place] [facility] November 30, 2013 08:44 AM QUIT TOBACCO USE IN PAST YEAR [facility] [place] [facility] May 22, 2013 10:10 AM QUIT TOBACCO USE IN PAST YEAR [facility] [place] [facility] December 01, 2012 01:54 PM QUIT TOBACCO USE IN PAST YEAR [facility] [place] [facility] Jun 07, 2012 08:16 AM V1-PT DECLINES TOBACCO CESSATION MEDS [facility] [place] [facility] Jun 07, 2012 08:16 AM V1-PT THINKING ABOUT QUIT TOBACCO USE [facility] [place] [facility] Jan 05, 2012 09:00 AM CURRENT SMOKER intermittenly [facility] [place] [facility] Jan 05, 2012 09:00 AM V1-PT DECLINES REF TO TOBACCO CESS [facility] [place] [facility] Jan 05, 2012 09:00 AM V1-PT DECLINES TOBACCO CESSATION MEDS [facility] [place] [facility] Jan 05, 2012 09:00 AM V1-PT THINKING ABOUT QUIT TOBACCO USE [facility] Feb 17, 2011 09:52 AM V1-PT DECLINES [facility] [place] Feb 17, 2011 09:52 AM V1-PT THINKING ABOUT QUIT TOBACCO USE [facility] Aug 13, 2010 11:31 AM QUIT TOBACCO USE IN PAST YEAR [facility] Feb 19, 2010 01:26 PM QUIT TOBACCO USE IN PAST YEAR [facility] Sep 13, 2009 11:04 AM QUIT TOBACCO USE IN PAST YEAR [facility] Feb 05, 2009 08:29 AM V1-PT DECLINES REF TO TOBACCO CESS PRGM [facility] Feb 05, 2009 08:29 AM V1-PT DECLINES TOBACCO CESSATION MEDS [facility] Feb 05, 2009 08:29 AM V1-PT THINKING ABOUT QUIT TOBACCO USE [facility] Aug 22, 2008 09:04 AM QUIT TOBACCO USE IN PAST YEAR [facility] Mar 12, 2008 10:40 AM V1-PT DECLINES REF TO TOBACCO CESS PRGM [facility] Mar 12, 2008 10:40 AM V1-PT DECLINES TOBACCO CESSATION MEDS [facility] Mar 12, 2008 10:40 AM V1-PT NOT INTERESTED IN QUIT TOBACCO USE [facility] Mar 08, 2008 09:37 AM CURRENT SMOKER smokes one pack a day for about 10 years ago. [facility] Encounter Notes: All associated encounter notes This section contains the clinical notes associated to the Encounter. Date/Time Encounter Note(s) Provider Source May 10, 2024 09:10 AM ACCOUNTING OF DISC LOSURES NOTE: LOCAL TITLE: STATE PRESCRIPTION DRUG MONITORING PROGRAM STANDARD TITLE: ACCOUNTING OF DISCLOSURES NOTE DATE OF NOTE: MAY 10, 2024@09:10:50 ENTRY DATE: MAY 10, 2024@09:10:50 AUTHOR: CUTLER,GAL S EXP COSIGNER: URGENCY: STATUS: COMPLETED This PDMP query was submitted by Gal Madsen MD. The clinical justification for this PDMP query is to review controlled substances prescribed outside of the [facility], and any additional information that may become available, as an important component of standard clinical care, and in accordance with [facility] policy. Patient information was shared with the PDMP [place]. Prescription(s) filled outside the [facility] in the last 90 days are noted. However, they do not raise significant safety concerns and do not influence the treatment plan at this time. 03/21/24 oxycodone 15 mg #42 from [facility] /divya/ Gal Madsen MD STAFF PHYSICIAN Signed: 05/10/2024 09:14 GAL MADSEN [facility]
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
--- OUTSIDE RECORDS SUMMARY | 2024-07-05 03:49 | XMS_ITS ---
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 [place] [facility] [place] [facility] [facility] [place] Address [address] [place] [address] Care Team Providers Care Sound Installation Worker Name Role Phone ROMANA CASTILLO Primary [...] Garcia's Name Patient's Relationship to Policy Garcia [facility] (MEDICAID) [facility] May 14, 2009 [id number] SAMPLE,ROCCO MOORE PATIENT [facility] May 14, 2009 [id number] SAMPLE,ROCCO [place] PATIENT MEDICAID MEDICAID [facility] ESTEFANY Jul 26, 2018 MEDICAI D [id number] SAMPLE,ROCCO [place] PATIENT MEDICARE (WNR) MEDICARE (M) PART A November 24, 2015 PART A [id number] SAMPLE,ROCCO [place] PATIENT MEDICARE (WNR) MEDICARE (M) PART B November 24, 2015 PART B [id number] SAMPLE,ROCCO [place] PATIENT Selected Encounter This section includes the information on record at [place] for the Encounter. Date/Time Encounter Type Encounter Description Reason Provider Source May 15, 2024 11:30 AM OFFICE O/P EST LOW [facility] - [facility] ICD-10-CM F41.9 Anxiety disorder, unspecified BAYRON SCOTT MD [facility] Encounter Template Text not used by [place] Assessments - Encounter Diagnoses This section includes the primary and secondary diagnoses documented for the Encounter. Date/Time Primary/Secondary Diagnosis Diagnosis Name Provider Source May 15, 2024 11:54 AM PRIMARY Anxiety disorder, unspecified BAYRON SCOTT MD [facility] May 15, 2024 11:54 AM SECONDARY Insomnia, unspecified BAYRON SCOTT MD [facility] Plan of Treatment: Future Appointments (+ [...] 25, 2024 11:30 AM AMBULATORY - MEDICINE [facility] Jul 13, 2024 10:00 AM AMBULATORY - MEDICINE [facility] Aug 24, 2024 11:00 AM AMBULATORY MEDICINE [facility] Lab Results: +/- 30 days of [...] Range Comment May 16, 2024 04:03 PM [facility] METHADONE SCREEN Specimen Type: URINE Comment: BRISSA test are qualitative, any L or H flags only indicate a VA alert was sent. Ordering Provider: RONAN MADESN Report Released Date/Time: May 16, 2024 01:45 PM Reporting Lab: [facility] [address] [facility] [address] Performing Lab: [facility] [address] [facility] [address] METHADONE SCREEN None detected(Nega tive) L Negative May 16, 2024 04:03 PM [facility] AMPHETAMINES SCREEN PANEL Specimen Type: [...] May 16, 2024 01:45 PM Reporting Lab: [address] [address] Performing Lab: [address] [address] AMPHETAMINES SCREEN NONE-DETECTED None-Detec dirk, Cutoff = 1000 ng/mL PH, BRISSA 4.7 [pH] 4-10 CREATININE, BRISSA 76.90 mg/dL >20 SP.GRAVITY, BRISSA 1.015 1.00 3-1.02 0 May 16, 2024 04:03 PM [facility] ALCOHOL, ETHYL URINE PANEL Specimen [...] May 16, 2024 01:45 PM Reporting Lab: [address] [place] [address] Performing Lab: [address] [address] ALCOHOL, ETHYL URINE NONE-DETECTED mg/dL NONE-DETEC DIRK, cutoff = 10 mg/dL PH, BRISSA 4.7 [pH] 4-10 CREATININE, BRISSA 76.90 mg/dL >20 SP.GRAVITY, BRISSA 1.015 1.00 3-1.02 0 May 16, 2024 04:03 PM [facility] BENZODIAZEPINES SCREEN PANEL Specimen Type: [...] May 16, 2024 01:45 PM Reporting Lab: [address] [address] Performing Lab: [address] [address] BENZODIAZEPINES SCREEN POSITIVE HH None-Detec dirk, Cutoff = 200 ng/mL PH, BRISSA 4.7 [pH] 4-10 CREATININE, BRISSA 76.90 mg/dL >20 SP.GRAVITY, BRISSA 1.015 1.00 3-1.02 0 May 16, 2024 04:03 PM [facility] FENTANYL SCREEN PANEL Specimen Type: [...] May 16, 2024 01:45 PM Reporting Lab: [address] [address] Performing Lab: [address] [address] FENTANYL SCREEN NONE-DETECTE D ng/mL Negative: Cutoff = 1.00 ng/mL PH, BRISSA 4.7 [pH] 4-10 CREATININE, BRISSA 76.33 mg/dL >20 SP.GRAVITY, BRISSA 1.015 1.00 3-1.02 0 May 16, 2024 04:03 PM [facility] BUPRENORPHINE SCREEN PANEL Specimen Type: [...] May 16, 2024 01:45 PM Reporting Lab: [address] [address] Performing Lab: [address] [address] BUPRENORPHINE (URINE) POSITIVE HH None Detected, Cutoff = 10.0 ng/mL PH, BRISSA 4.7 [pH] 4-10 CREATININE, BRISSA 76.90 mg/dL >20 SP.GRAVITY, BRISSA 1.015 1.00 3-1.02 0 May 16, 2024 04:03 PM [facility] CANNABINOIDS SCREEN PANEL Specimen Type: [...] 11 may have been adulterated. Ordering Provider: CUTLER,WILLIA M S Report Released Date/Time: May 16, 2024 01:45 PM Reporting Lab: [address] [address] Performing Lab: [address] [address] CANNABINOIDS SCREEN NONE-DETECTED None-Detec dirk,Cutoff = 50 ng/mL PH, BRISSA 4.7 [pH] 4-10 CREATININE, BRISSA 76.90 mg/dL >20 SP.GRAVITY, BRISSA 1.015 1.00 3-1.02 0 May 16, 2024 04:03 PM [facility] COCAINE SCREEN PANEL Specimen Type: [...] May 16, 2024 01:45 PM Reporting Lab: [address] [address] Performing Lab: [address] [address] COCAINE SCREEN NONE-DETECTED N one-Detec dirk,Cutoff = 300 ng/mL PH, BRISSA 4.7 [pH] 4-10 CREATININE, BRISSA 76.90 mg/dL >20 SP.GRAVITY, BRISSA 1.015 1.00 3-1.02 0 May 16, 2024 04:03 PM [facility] OPIATES SCREEN PANEL Specimen Type: [...] May 16, 2024 01:45 PM Reporting Lab: [address] [address] Performing Lab: [address] [address] OPIATES SCREEN POSITIVE HH None- Detec dirk, Cutoff = 300 ng/mL PH, BRISSA 4.7 [pH] 4-10 CREATININE, BRISSA 76.90 mg/dL >20 SP.GRAVITY, BRISSA 1.015 1.00 3-1.02 0 May 16, 2024 04:03 PM [facility] OXYCODONE SCREEN PANEL Specimen Type: [...] May 16, 2024 01:45 PM Reporting Lab: [address] [address] Performing Lab: [address] [address] OXYCODONE SCREEN POSITIVE HH Non e-Detec dirk, [...] AM [facility] Tobacco Use History This section includes a history of the smoking, or tobacco-related health factors, that were collected on or before the date of the Encounter. The data comes from the [place] facility where the Encounter took place. Date/Time Smoking Status/Tobac co Use Comment Facility Mar 06, 2024 09:00 AM VA-TOBACCO QUIT 15 YRS OR MORE [facility] [place] [facility] Mar 31, 2023 11:00 AM VA-TOBACCO FORMER USER [facility] [place] [facility] Mar 31, 2023 11:00 AM VA-TOBACCO QUIT 1 TO < 5 YRS [facility] [place] [facility] Mar 25, 2022 10:30 AM VA-TOBACCO NEVER USED [facility] [place] [facility] Mar 19, 2021 02:00 PM VA-TOBACCO FORMER USER [place] [facility] [place] [facility] Mar 19, 2021 02:00 PM [facility]BAC[facility] QUIT < [facility] [place] [facility] Sep 20, 2018 11:24 AM VA-TOBACCO USE DECLINED TO ANSWER [facility] [place] [facility] Oct 21, 2017 08:13 AM QUIT TOBACCO USE IN PAST YEAR [facility] [place] [facility] Dec 30, 2016 08:28 AM QUIT TOBACCO USE 1-7 YEARS AGO [facility] [place] [facility] Jun 04, 2016 08:43 AM QUIT TOBACCO USE 1-7 YEARS AGO [facility] [place] [facility] May 17, 2015 08:45 AM QUIT TOBACCO USE 1-7 YEARS AGO quit 2 years ago. [facility] [place] [facility] Jun 07, 2014 09:25 AM QUIT TOBACCO USE 1-7 YEARS AGO [facility] [place] [facility] November 30, 2013 08:44 AM QUIT TOBACCO USE IN PAST YEAR [facility] [place] [facility] May 22, 2013 10:10 AM QUIT TOBACCO USE IN PAST YEAR [facility] [place] [facility] December 01, 2012 01:54 PM QUIT TOBACCO USE IN PAST [facility]AR [facility] [place] [facility] Jun 07, 2012 08:16 AM V1-PT DECLINES TOBACCO CESSATION MEDS [facility] [place] [facility] Jun 07, 2012 08:16 AM V1-PT THINKING ABOUT [facility]IT [facility] [place] [facility] Jan 05, 2012 09:00 AM CURRENT SMOKER intermittenly [facility] [place] [facility] Jan 05, 2012 09:00 AM V1-PT DECLINES REF TO TOBACCO CESS PRGM [facility] [place] [facility] Jan 05, 2012 09:00 AM V1-PT DECLINES [facility]ACCO [facility] [place] [facility] Jan 05, 2012 09:00 AM V1-PT THINKING ABOUT QUIT TOBACCO USE [facility] [place] [facility] Feb 17, 2011 09:52 AM V1-PT DECLINES TOBACCO CESSATION MED[facility] [place] [facility] Feb 17, 2011 09:52 AM V1-PT THINKING ABOUT QUIT TOBACCO USE [facility] [place] [facility] Aug 13, 2010 11:31 AM QUIT TOBACCO USE IN PAST YEAR [facility] [place] [facility] Feb 19, 2010 01:26 PM QUIT TOBACCO USE IN PAST YEAR [facility] [place] [facility] Sep 13, 2009 11:04 AM QUIT TOBACCO USE IN PAST YEAR [facility] [place] [facility] Feb 05, 2009 08:29 AM V1-PT DECLINES REF TO TOBACCO CESS PRGM [facility] [place] [facility] Feb 05, 2009 08:29 AM V1-PT DECLINES TOBACCO CESSATION MED[facility] [place] [facility] Feb 05, 2009 08:29 AM V1-PT THINKING ABOUT QUIT TOBACCO USE [facility] [place] [facility] Aug 22, 2008 09:04 AM QUIT TOBACCO USE IN PAST YEAR [facility] [place] [facility] Mar 12, 2008 10:40 AM V1-PT DECLINES REF TO TOBACCO CESS PRGM [facility] [place] [facility] Mar 12, 2008 10:40 AM V1-PT DECLINES TOBACCO CESSATION MEDS [place] [facility] [place] [facility] Mar 12, 2008 10:40 AM V1-PT NOT INTERESTED IN QUIT TOBACCO USE [facility] [place] [facility] Mar 08, 2008 09:37 AM CURRENT SMOKER smokes one pack a day for about 10 years ago. [facility] Encounter Notes: All associated encounter notes This section contains the clinical notes associated to the Encounter. Date/Time Encounter Note(s) Provider Source May 15, 2024 11:53 AM ACCOUNTING OF DISCLOSURES NOTE: LOCAL TITLE: STATE PRESCRIPTION DRUG MONITORING PROGRAM STANDARD TITLE: ACCOUNTING OF DISCLOSURES NOTE DATE OF NOTE: MAY 15, 2024@11:53 ENTRY DATE: MAY 15, 2024@11:53 AUTHOR: MATEO SCOTT EXP COSIGNER: URGENCY: STATUS: COMPLETED This PDMP query was submitted by Mateo Scott MD, MD. The clinical justification for this PDMP query is to review controlled substances prescribed outside of the [facility], and any additional information that may become available, as an important component of standard clinical care, and in accordance with [facility] policy. Patient information was shared with the PDMP [employer]. No prescription(s) for controlled substances outside the [facility] were found in the last 90 days. /divya/ MATEO SCOTT JR, MD STAFF PSYCHIATRIST Signed: 05/15/2024 11:53 MATEO SCOTT MD [facility] May 15, 2024 10:29 AM PSYCHIATRY NOTE: LOCAL TITLE: PSYCHIATRY/FOLLOW-UP NOTE STANDARD TITLE: PSYCHIATRY NOTE DATE OF NOTE: MAY 15, 2024@10:29 ENTRY DATE: MAY 15, 2024@10:29:40 AUTHOR: MATEO SCOTT EXP COSIGNER: URGENCY: STATUS: COMPLETED Medications were reconciled with and she was offered a copy of her medication list and she declines. Active Outpatient Medications: 1) ATORVASTATIN CALCIUM 80MG [...] DIPHTHERIA TOXOID 0.5ML INTRAMUSCULARLY NOW 6) Non-VA [id number]/VILANTERO L25MCG 30D INH 1 INHALATION BY MOUTH ONCE DAILY REID QUEZADA is a 64 yo, female who was scheduled [facility] and unable to connect as she is not receiving her emails or link. Appointment change to telephone. Two identifiers were used. CC: I was on my way to an AA meeting at [facility] (in her scooter) and I lost my purse and when I went back it was nowhere to be found. I filed a police report. This was yesterday morning. Umair had just gotten her meds in the mail. No alcohol or substance use, no, no . Umair is on generic suboxone from the pain clinic. Umair used to get the clonazepam and temazepam from her urban sociologist and he retired. Umair states she has been on the same dose of clonazepam and temazepam for years and it worked . Clonazepam was recommended by her urban sociologist and also stated the clonazepam. No complaints, no cravings, and no adverse side effects from current medications were reported, no, none that I know of . Mood is stable, good. Sleep and appetite are both, great. Discussed continuation of present medications as above. 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 Umair is on a BiPAP machine and uses it every day and even when taking a nap. Umair declines trying to taper off of benzodiazepines and states they tried before and it didn't work. It was a disaster. This works and I have a life. She requests continuation of present medication. Discussed continuation of present medications as above. Patient education given including not taking anyone else's medications or giving her medications to anyone else and to secure and protect her medications from theft and children. Vet is agreeable. MSE: REID QUEZADA is an obese, 64 yo, female who is casually dressed wearing a t-shirt, a hooded sweatshirt, sweatpants, an O2 cannula and ambulates in a scooter. She is alert and oriented in all [...] 2-3 months or earlier if needed. Vet informed that I will be retiring. Offer Overdose Education and Naloxone: Education provided This section supports standardized OEND. Because OUD and Stimulant Use Disorder are strong risk factors for overdose, OEND is recommended. OEND should include critical education on opioid overdose prevention, recognition, and response. Education provided to: Patient The following resources were shared: Naloxone Patient declined naloxone. Reason: I have one. /divya/ MATEO SCOTT JR, MD STAFF PSYCHIATRIST Signed: 05/15/2024 11:54 M[facility] SCOTT MD [place] [facility]
--- OUTSIDE RECORDS SUMMARY | 2024-07-05 03:49 | XMS_ITS | Encounter Summary ---
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 Address [address] [place] [id number] Care Team Providers Care Grinder Chipper Name Role Phone ROMANA CASTILLO Primary Care [...] Garcia's Name Patient's Relationship to Policy Garcia [facility] (MEDICAID) [facility] May 14, 2009 [id number] SAMPLE,ROCCO MOORE PATIENT [facility]ICAID [facility] May 14, 2009 [id number] SAMPLE,ROCCO MOORE PATIENT MEDICAID MEDICAID [facility] Jul 26, 2018 MEDICAI D [id number] SAMPLE,ROCCO MOORE PATIENT MEDICARE (WNR) MEDICARE (M) PART A November 24, 2015 PART A [id number] [phone] SAMPLE,ROCCO MOORE PATIENT MEDICARE (WNR) MEDICARE (M) PART B November 24, 2015 PART B [id number] [id number] [phone] SAMPLEROCCO PATIENT Selected Encounter This section includes the information on record at [place] for the Encounter. Date/Time Encounter Type Encounter Description Reason Pro vider Source May 15, 2024 12:09 PM Outpatient Encounter PAIN CLINIC [facility] Encounter [...] 25, 2024 11:30 AM [facility] Jul 13, 2024 10:00 AM [facility] Aug 24, 2024 11:00 AM AMBULATORY MEDICINE [facility] Lab Results: +/- 30 days of [...] Range Comment May 16, 2024 04:03 PM [facility] METHADONE SCREEN Specimen Type: URINE Comment: BRISSA test are qualitative, any L or H flags only indicate a [place] alert was sent. Ordering Provider: RONAN MADSEN Report Released Date/Time: May 16, 2024 01:45 PM Reporting Lab: [facility] [address] [facility] [address] Performing Lab: [facility] [address] [facility] [address] METHADONE SCREEN None detected(Nega tive) L Negative May 16, 2024 04:03 PM [facility] ALCOHOL, ETHYL URINE PANEL Specimen Type: [...] 16, 2024 01:45 PM Reporting Lab: [address] [address] Performing Lab: [address] [address] ALCOHOL, ETHYL URINE NONE-DETECTED mg/dL NONE-DETEC DIRK, cutoff = 10 mg/dL PH, BRISSA 4.7 [pH] 4-10 CREATININE, BRISSA 76.90 mg/dL >20 SP.GRAVITY, BRISSA 1.015 1.00 3-1.02 0 May 16, 2024 04:03 PM [facility] AMPHETAMINES SCREEN PANEL Specimen Type: URINE [...] 16, 2024 01:45 PM Reporting Lab: [address] [address] Performing Lab: [address] [address] AMPHETAMINES SCREEN NONE-DETECTED None-Detec dirk, Cutoff = 1000 ng/mL PH, BRISSA 4.7 [pH] 4-10 CREATININE, BRISSA 76.90 mg/dL >20 SP.GRAVITY, BRISSA 1.015 1.00 3-1.02 0 May 16, 2024 04:03 PM [facility] BENZODIAZEPINES SCREEN PANEL Specimen Type: URINE [...] 16, 2024 01:45 PM Reporting Lab: [address] [address] Performing Lab: [address] [address] BENZODIAZEPINES SCREEN POSITIVE HH None-Detec dirk, Cutoff = 200 ng/mL PH, BRISSA 4.7 [pH] 4-10 CREATININE, BRISSA 76.90 mg/dL >20 SP.GRAVITY, BRISSA 1.015 1.00 3-1.02 0 May 16, 2024 04:03 PM [facility] FENTANYL SCREEN PANEL Specimen Type: URINE [...] 16, 2024 01:45 PM Reporting Lab: [address] [address] Performing Lab: [address] [address] FENTANYL SCREEN NONE-DETECTE D ng/mL Negative: Cutoff = 1.00 ng/mL PH, BRISSA 4.7 [pH] 4-10 CREATININE, BRISSA 76.33 mg/dL >20 SP.GRAVITY, BRISSA 1.015 1.00 3-1.02 0 May 16, 2024 04:03 PM [facility] BUPRENORPHINE SCREEN PANEL Specimen Type: URINE [...] 16, 2024 01:45 PM Reporting Lab: [address] [address] Performing Lab: [address] [address] BUPRENORPHINE (URINE) POSITIVE HH None Detected, Cutoff = 10.0 ng/mL PH, BRISSA 4.7 [pH] 4-10 CREATININE, BRISSA 76.90 mg/dL >20 SP.GRAVITY, BRISSA 1.015 1.00 3-1.02 0 May 16, 2024 04:03 PM [facility] CANNABINOIDS SCREEN PANEL Specimen Type: URINE [...] 16, 2024 01:45 PM Reporting Lab: [address] [address] Performing Lab: [address] [address] CANNABINOIDS SCREEN NONE-DETECTED None-Detec dirk,Cutoff = 50 ng/mL PH, BRISSA 4.7 [pH] 4-10 CREATININE, BRISSA 76.90 mg/dL >20 SP.GRAVITY, BRISSA 1.015 1.00 3-1.02 0 May 16, 2024 04:03 PM [facility] COCAINE SCREEN PANEL Specimen Type: URINE [...] 16, 2024 01:45 PM Reporting Lab: [address] [address] Performing Lab: [address] [address] COCAINE SCREEN NONE-DETECTED N one-Detec dirk,Cutoff = 300 ng/mL PH, BRISSA 4.7 [pH] 4-10 CREATININE, BRISSA 76.90 mg/dL >20 SP.GRAVITY, BRISSA 1.015 1.00 3-1.02 0 May 16, 2024 04:03 PM [facility] OPIATES SCREEN PANEL Specimen Type: URINE [...] 16, 2024 01:45 PM Reporting Lab: [address] [address] Performing Lab: [address] [address] OPIATES SCREEN POSITIVE HH None- Detec dirk, Cutoff = 300 ng/mL PH, BRISSA 4.7 [pH] 4-10 CREATININE, BRISSA 76.90 mg/dL >20 SP.GRAVITY, BRISSA 1.015 1.00 3-1.02 0 May 16, 2024 04:03 PM [facility] OXYCODONE SCREEN PANEL Specimen Type: URINE [...] 16, 2024 01:45 PM Reporting Lab: [address] [address] Performing Lab: [address] [address] OXYCODONE SCREEN POSITIVE HH Non e-Detec dirk, [...] Current Smoking Status Comment Rosana humphrey Mar 06, 2024 09:00 AM [place]-TOBACCO FORMER USER [facility] Tobacco Use History This section includes a history of the smoking, or tobacco-related health factors, that were collected on or before the date of the Encounter. The data comes from the [place] facility where the Encounter took place. Date/Time Smoking Status/Tobac co Use Comment [facility] Mar 06, 2024 09:00 AM [place]-TO[place]AC[place] QUIT 15 YRS OR MORE [facility] Mar 31, 2023 11:00 AM [place]-TOBACCO FORMER USER [facility] Mar 31, 2023 11:00 AM [place]-TO[place]ACCO QUIT 1 TO < 5 YRS [facility] [place] [facility] Mar 25, 2022 10:30 AM VA-TOBACCO NEVER USED [place] [facility] [place] [facility] Mar 19, 2021 02:00 PM VA-TOBACCO FORMER USER [place] [facility] [place] [facility] Mar 19, 2021 02:00 PM VA-TOBACCO QUIT < 1 YEAR [facility] [place] [facility] Sep 20, 2018 11:24 AM [place]-TOBACCO USE DECLINED TO ANSWER [place] [facility] [place] [facility] Oct 21, 2017 08:13 AM QUIT TOBACCO USE IN PAST YEAR [place] [facility] [place] [facility] Dec 30, 2016 08:28 AM QUIT TOBACCO USE 1-7 YEARS AGO [place] [facility] [place] [facility] Jun 04, 2016 08:43 AM QUIT TOBACCO USE 1-7 YEARS AGO [place] [facility] [place] [facility] May 17, 2015 08:45 AM QUIT TOBACCO USE 1-7 YEARS AGO quit 2 years ago. [place] [facility] [place] [facility] Jun 07, 2014 09:25 AM QUIT TOBACCO USE 1-7 YEARS AGO [place] [facility] [place] [facility] November 30, 2013 08:44 AM QUIT TOBACCO USE IN PAST YEAR [place] [facility] [place] [facility] May 22, 2013 10:10 AM QUIT TOBACCO USE IN PAST YEAR [place] [facility] [place] [facility] December 01, 2012 01:54 PM QUIT TOBACCO USE IN PAST YEAR [facility] [place] [facility] Jun 07, 2012 08:16 AM V1-PT DECLINES TOBACCO CESSATION MEDS [place] [facility] [place] [facility] Jun 07, 2012 08:16 AM V1-PT THINKING ABOUT QUIT TOBACCO USE [place] [facility] [place] [facility] Jan 05, 2012 09:00 AM CURRENT SMOKER intermittenly [place] [facility] [place] [facility] Jan 05, 2012 09:00 AM V1-PT DECLINES REF TO TOBACCO CESS PRGM [place] [facility] [place] [facility] Jan 05, 2012 09:00 AM V1-PT DECLINES TOBACCO CESSATION MEDS [facility] [place] [facility] Jan 05, 2012 09:00 AM V1-PT THINKING ABOUT QUIT [facility]AC[facility] Feb 17, 2011 09:52 AM V1-PT DECLINES TOBACCO CESSATION [facility] Feb 17, 2011 09:52 AM V1-PT THINKING ABOUT QUIT TOBACCO USE [facility] Aug 13, 2010 11:31 AM QUIT TOBACCO USE IN PAST YEAR [facility] Feb 19, 2010 01:26 PM QUIT TOBACCO USE IN PAST YEAR [facility] Sep 13, 2009 11:04 AM QUIT TOBACCO USE IN PAST YEAR [facility] Feb 05, 2009 08:29 AM V1-PT DECLINES REF TO TOBACCO CESS PRGM [facility] Feb 05, 2009 08:29 AM V1-PT DECLINES TOBACCO CESSATION MEDS [facility] Feb 05, 2009 08:29 AM V1-PT THINKING ABOUT QUIT TOBACCO USE [facility] Aug 22, 2008 09:04 AM QUIT TOBACCO USE IN PAST YEAR [facility] Mar 12, 2008 10:40 AM [...] Encounter Note(s) Provider Source May 15, 2024 12:09 PM TELEPHONE ENCOUNTER NOTE: LOCAL TITLE: TELEPHONE NOTE/SPECIALTY CLINIC STANDARD TITLE: TELEPHONE ENCOUNTER NOTE DATE OF NOTE: MAY 15, 2024@12:09 ENTRY DATE: MAY 15, 2024@12:09:11 AUTHOR: LORI QUEVEDO STEP EXP COSIGNER: URGENCY: STATUS: COMPLETED Vet is requesting call back from provider today to discussissue with medication. Phone number on file confirmed. /divya/ LORI QUEVEDO ADVANCED PATIENT REGISTRATION REP Signed: 05/15/2024 12:09 Receipt Acknowledged By: 05/16/2024 13:26 /es/ Gal Madsen MD STAFF PHYSICIAN 05/16/2024 14:52 /es/ ERIC DOUGLAS CLINICAL PHARMACIST PRACTITIONER, PAIN 05/16/2024 13:55 /es/ JESSIKA CORONEL MD PHYSICIAN 05/15/2024 15:44 /es/ URBANO FOSTER, PHARM.D CLINICAL PHARMACIST PRACTITIONER LORI QUEVEDO [facility]
--- OUTSIDE RECORDS SUMMARY | 2024-07-05 03:51 | XMS_ITS | Encounter Summary ---
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 Address [address] [place] [address] Care Team Providers Care Marketing Consultant Name Role Phone ROMANA CASTILLO [...] Garcia's Name Patient's Relationship to Policy Garcia [facility] (MEDICAID) [place]ICAID [place] DEPT HUMAN [facility] May 14, 2009 [id number] SAMPLE,ROCCO MOORE PATIENT [facility] MEDICAID [facility] May 14, 2009 [id number] SAMPLE,ROCCO MOORE PATIENT MEDICAID MEDICAID [facility] Jul 26, 2018 MEDICAI D [id number] SAMPLE,ROCCO MOORE PATIENT MEDICARE (WNR) MEDICARE (M) PART A November 24, 2015 PART A [id number] SAMPLE,ROCCO MOORE PATIENT MEDICARE (WNR) MEDICARE (M) PART B November 24, 2015 PART B [id number] SAMPLE,ROCCO MOORE PATIENT Selected Encounter This section includes the information on record at [place] for the Encounter. Date/Time Encounter Type Encounter Description Reason Pro vider Source May 24, 2024 12:53 PM Outpatient Encounter ADMIN PAT ACTIVTIES (MASNONCT) [...] 25, 2024 11:30 AM [facility] Jul 13, 2024 10:00 AM AMBULATORY - MEDICINE [facility] Aug 24, 2024 11:00 AM AMBULATORY - MEDICINE [facility] Lab Results: +/- 30 days of the encounter This section includes the Chemistry and Hematology Lab Results on record with [place] for the patient. Radiology Reports and Pathology Reports are provided separately, in subsequent sections. Lab Results This section contains the Chemistry/Hematology Results that were resulted 30 days before or 30 daysafter the date of the Encounter. Date/Time Source Result Type Result - Unit Interpretation Reference Range Comment May 16, 2024 04:03 PM [facility] METHADONE SCREEN Specimen Type: URINE Comment: BRISSA test are qualitative, any L or H flags only indicate a [place] alert was sent. Ordering Provider: RONAN MADSEN Report Released Date/Time: May 16, 2024 01:45 PM Reporting Lab: [facility] [address] [facility] [address] Performing Lab: [facility] [address] [facility] [address] METHADONE SCREEN None detected(Nega tive) L Negative May 16, 2024 04:03 PM [facility] ALCOHOL, ETHYL URINE PANEL Specimen [...] May 16, 2024 01:45 PM Reporting Lab: [address] [address] Performing Lab: [address] [address] ALCOHOL, ETHYL URINE NONE-DETECTED mg/dL NONE-DETEC DIRK, cutoff = 10 mg/dL PH, BRISSA 4.7 [pH] 4-10 CREATININE, BRISSA 76.90 mg/dL >20 SP.GRAVITY, BRISSA 1.015 1.00 3-1.02 0 May 16, 2024 04:03 PM [facility] AMPHETAMINES SCREEN PANEL Specimen Type: [...] May 16, 2024 01:45 PM Reporting Lab: [address] [address] Performing Lab: [address] [address] AMPHETAMINES SCREEN NONE-DETECTED None-Detec dirk, Cutoff = 1000 ng/mL PH, BRISSA 4.7 [pH] 4-10 CREATININE, BRISSA 76.90 mg/dL >20 SP.GRAVITY, BRISSA 1.015 1.00 3-1.02 0 May 16, 2024 04:03 PM [facility] FENTANYL SCREEN PANEL Specimen Type: URINE Comment: [...] May 16, 2024 01:45 PM Reporting Lab: [address] [address] Performing Lab: [address] [address] FENTANYL SCREEN NONE-DETECTE D ng/mL Negative: Cutoff = 1.00 ng/mL PH, BRISSA 4.7 [pH] 4-10 CREATININE, BRISSA 76.33 mg/dL >20 SP.GRAVITY, BRISSA 1.015 1.00 3-1.02 0 May 16, 2024 04:03 PM [facility] CANNABINOIDS SCREEN PANEL Specimen Type: [...] May 16, 2024 01:45 PM Reporting Lab: [address] [address] Performing Lab: [address] [address] CANNABINOIDS SCREEN NONE-DETECTED None-Detec dirk,Cutoff = 50 ng/mL PH, BRISSA 4.7 [pH] 4-10 CREATININE, BRISSA 76.90 mg/dL >20 SP.GRAVITY, BRISSA 1.015 1.00 3-1.02 0 May 16, 2024 04:03 PM [facility] BENZODIAZEPINES SCREEN PANEL Specimen Type: [...] May 16, 2024 01:45 PM Reporting Lab: [address] [address] Performing Lab: [address] [address] BENZODIAZEPINES SCREEN POSITIVE HH None-Detec dirk, Cutoff = 200 ng/mL PH, BRISSA 4.7 [pH] 4-10 CREATININE, BRISSA 76.90 mg/dL >20 SP.GRAVITY, BRISSA 1.015 1.00 3-1.02 0 May 16, 2024 04:03 PM [facility] BUPRENORPHINE SCREEN PANEL Specimen Type: [...] May 16, 2024 01:45 PM Reporting Lab: [address] [address] Performing Lab: [address] [address] BUPRENORPHINE (URINE) POSITIVE HH None Detected, Cutoff = 10.0 ng/mL PH, BRISSA 4.7 [pH] 4-10 CREATININE, BRISSA 76.90 mg/dL >20 SP.GRAVITY, BRISSA 1.015 1.00 3-1.02 0 May 16, 2024 04:03 PM [facility] COCAINE SCREEN PANEL Specimen Type: [...] May 16, 2024 01:45 PM Reporting Lab: [address] [address] Performing Lab: [address] [address] COCAINE SCREEN NONE-DETECTED N one-Detec dirk,Cutoff = 300 ng/mL PH, BRISSA 4.7 [pH] 4-10 CREATININE, BRISSA 76.90 mg/dL >20 SP.GRAVITY, BRISSA 1.015 1.00 3-1.02 0 May 16, 2024 04:03 PM [facility] OPIATES SCREEN PANEL Specimen Type: [...] May 16, 2024 01:45 PM Reporting Lab: [address] [address] Performing Lab: [address] [address] OPIATES SCREEN POSITIVE HH None- Detec dirk, Cutoff = 300 ng/mL PH, BRISSA 4.7 [pH] 4-10 CREATININE, BRISSA 76.90 mg/dL >20 SP.GRAVITY, BRISSA 1.015 1.00 3-1.02 0 May 16, 2024 04:03 PM [facility] OXYCODONE SCREEN PANEL Specimen Type: [...] May 16, 2024 01:45 PM Reporting Lab: [address] [address] Performing Lab: [address] [address] OXYCODONE SCREEN POSITIVE HH Non e-Detec dirk, [...] [facility] Mar 06, 2024 09:00 AM [place]-TOBAC[place] QUIT 15 YRS OR MORE [facility] Tobacco Use History This section includes a history of the smoking, or tobacco-related health factors, that were collected on or before the date of the Encounter. The data comes from the [place] facility where the Encounter took place. Date/Time Smoking Status/Tobac co Use Comment [facility] Mar 06, 2024 09:00 AM [place]-TOBAC[place] QUIT 15 YRS OR MORE [facility] Mar 31, 2023 11:00 AM VA-TOBACCO FORMER USER [facility] Mar 31, 2023 11:00 AM VA-TOBACCO QUIT 1 TO < 5 YRS [place] [facility] [place] [facility] Mar 25, 2022 10:30 AM VA-TOBACCO NEVER USED [place] [facility] [facility] Mar 19, 2021 02:00 PM VA-TOBACCO FORMER USER [place] [facility] [facility] Mar 19, 2021 02:00 PM VA-TOBACCO QUIT < [facility] [place] [facility] Sep 20, 2018 11:24 AM VA-TOBACCO USE DECLINED TO [facility]SWER [facility] [place] [facility] Oct 21, 2017 08:13 AM QUIT TOBACCO USE IN PAST YEAR [place] [facility] [facility] [facility] Dec 30, 2016 08:28 AM QUIT TOBACCO USE 1-7 YEARS AGO [place] [facility] [facility] Jun 04, 2016 08:43 AM QUIT TOBACCO USE 1-7 YEARS AGO [facility] [place] [facility] May 17, 2015 08:45 AM QUIT TOBACCO USE 1-7 YEARS AGO quit 2 years ago. [place] [facility] [facility] Jun 07, 2014 09:25 AM QUIT TOBACCO USE 1-7 YEARS AGO [place] [facility] [facility] November 30, 2013 08:44 AM QUIT TOBACCO USE IN PAST YEAR [place] [facility] [facility] May 22, 2013 10:10 AM QUIT TOBACCO USE IN PAST YEAR [facility] [place] [facility] December 01, 2012 01:54 PM QUIT TOBACCO USE [facility]ST [facility] [place] [facility] Jun 07, 2012 08:16 AM V1-PT DECLINES TOBACCO CESSATION MEDS [facility] [place] [facility] Jun 07, 2012 08:16 AM V1-PT THINKING ABOUT QUIT TOBACCO USE [facility] [facility] Jan 05, 2012 09:00 AM CURRENT SMOKER intermittenly [facility] [place] [facility] Jan 05, 2012 09:00 AM V1-PT DECLINES REF TO TOBACCO CESS PRGM [facility] [place] [facility] Jan 05, 2012 09:00 AM V1-PT DECLINES TOBACCO CESSATION MEDS [facility] [place] [facility] Jan 05, 2012 09:00 AM V1-PT THINKING ABOUT [facility]IT [facility] Feb 17, 2011 09:52 AM V1-PT DECLINES TOBACCO CESSATION MEDS [facility] Feb 17, 2011 09:52 AM V1-PT THINKING ABOUT QUIT [facility]ACCO [facility] Aug 13, 2010 11:31 AM QUIT TOBACCO USE IN PAST YEAR [facility] Feb 19, 2010 01:26 PM QUIT TOBACCO USE IN PAST [facility] Sep 13, 2009 11:04 AM QUIT TOBACCO USE IN PAST [facility] Feb 05, 2009 08:29 AM V1-PT DECLINES REF TO TOBACCO CESS [facility] Feb 05, 2009 08:29 AM V1-PT DECLINES TOBACCO CESSATION MEDS [facility] Feb 05, 2009 08:29 AM V1-PT THINKING ABOUT QUIT TOBACCO [facility] Aug 22, 2008 09:04 AM QUIT TOBACCO USE IN PAST [facility]AR [facility] Mar 12, 2008 10:40 AM V1-PT DECLINES REF TO TOBACCO CESS [facility] Mar 12, 2008 10:40 AM V1-PT DECLINES TOBACCO CESSATION MEDS [facility] Mar 12, 2008 10:40 AM V1-PT NOT INTERESTED IN QUIT TOBACCO USE [facility] Mar 08, 2008 09:37 AM CURRENT SMOKER smokes one pack a day for about 10 years ago. [facility] Encounter Notes: All associated encounter notes This section contains the clinical notes associated to the Encounter. Date/Time Encounter Note(s) Provider Source May 24, 2024 12:53 PM ADMINISTRATIVE NOTE: LOCAL TITLE: CCC: SCHEDULING ADMINISTRATION STANDARD TITLE: ADMINISTRATIVE NOTE DATE OF NOTE: MAY 24, 2024@12:53:40 ENTRY DATE: MAY 24, 2024@12:53:41 AUTHOR: ELESA OSBORN EXP COSIGNER: URGENCY: STATUS: COMPLETED Patient Demographics Patient Name: ERID QUEZADA Patient Primary Phone: [phone] Patient Primary Address: [place] [address] Patient : 1960 Patient Age: 64 Caller/Recipient Relation to Patient: Self Administrative Administrative Note Comments: [facility] at [facility], calling to report patient refused start of care today and they will try tomorrow instead , can be reached at [phone]. IMPORTANT: This note was created by [facility] staff. Please do not alert the staff member by adding them as a signer for future communications. Alerts are not monitored by this user. /divya/ LEESA WHARTON 1 [facility] AMS[facility] Signed: 05/24/2024 12:53 Receipt Acknowledged By: 05/25/2024 10:27 /es/ AKOSUA GREEN, LULI, RN, CNL PRIMARY CARE TEAM NURSE 05/24/2024 12:54 /es/ Fabiola Hokoer, field interviewer Staff Nurse LEESA OSBORN [facility]
--- OUTSIDE RECORDS SUMMARY | 2024-07-05 03:51 | XMS_ITS | Encounter Summary ---
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 Organization [place] Address [address] [place] [id number] Care Team Providers Care Glue Drier Operator Name Role Phone ROMANA CASTILLO Primary [...] Garcia's Name Patient's Relationship to Policy Garcia [facility] (MEDICAID) [facility] May 14, 2009 [id number] SAMPLE,ROCCO MOORE PATIENT [facility]ICAID [facility] May 14, 2009 [id number] SAMPLE,ROCCO MOORE PATIENT MEDICAID MEDICAID [facility] Jul 26, 2018 MEDICAI D [id number] SAMPLE,ROCCO MOORE PATIENT MEDICARE (WNR) MEDICARE (M) PART A November 24, 2015 PART A [id number] SAMPLE,ROCCO MOORE PATIENT MEDICARE (WNR) MEDICARE (M) PART B November 24, 2015 PART B [id number] [facility] PATIENT Selected Encounter This section includes the information on record at [place] for the Encounter. Date/Time Encounter Type Encounter Description Reason Pro vider Source May 24, 2024 09:06 AM Outpatient Encounter PAIN CLINIC IHE Encounter [...] 25, 2024 11:30 AM AMBULATORY - [facility]ICINE [facility] Jul 13, 2024 10:00 AM [facility] Aug 24, 2024 11:00 AM AMBULATORY - MEDICINE [facility] Lab Results: +/- 30 days of the encounter This section includes the Chemistry and Hematology Lab Results on record with [place] for the patient. Radiology Reports and Pathology Reports are provided separately, in subsequent sections. Lab Results This section contains the Chemistry/Hematology Results that were resulted 30 days before or 30 daysafter the date of the Encounter. Date/Time Source Result Type Result - Unit Interpretation Reference Range Comment May 16, 2024 04:03 PM [facility] METHADONE SCREEN Specimen Type: URINE Comment: BRISSA test are qualitative, any L or H flags only indicate a [place] alert was sent. Ordering Provider: RONAN MADSEN Report Released Date/Time: May 16, 2024 01:45 PM Reporting Lab: [facility] [address] [facility] [address] Performing Lab: [facility] [address] [facility] [address] METHADONE SCREEN None detected(Nega tive) L Negative May 16, 2024 04:03 PM [facility] AMPHETAMINES SCREEN PANEL Specimen Type: URINE [...] May 16, 2024 01:45 PM Reporting Lab: [address] [address] Performing Lab: [address] [address] AMPHETAMINES SCREEN NONE-DETECTED None-Detec dirk, Cutoff = 1000 ng/mL PH, BRISSA 4.7 [pH] 4-10 CREATININE, BRISSA 76.90 mg/dL >20 SP.GRAVITY, BRISSA 1.015 1.00 3-1.02 0 May 16, 2024 04:03 PM [facility] ALCOHOL, ETHYL URINE PANEL Specimen Type: [...] May 16, 2024 01:45 PM Reporting Lab: [address] [address] Performing Lab: [address] [address] ALCOHOL, ETHYL URINE NONE-DETECTED mg/dL NONE-DETEC DIRK, cutoff = 10 mg/dL PH, BRISSA 4.7 [pH] 4-10 CREATININE, BRISSA 76.90 mg/dL >20 SP.GRAVITY, BRISSA 1.015 1.00 3-1.02 0 May 16, 2024 04:03 PM [facility] FENTANYL SCREEN PANEL Specimen Type: URINE [...] May 16, 2024 01:45 PM Reporting Lab: [facility] [address] [facility] [address] Performing Lab: [address] [address] FENTANYL SCREEN NONE-DETECTE D ng/mL Negative: Cutoff = 1.00 ng/mL PH, BRISSA 4.7 [pH] 4-10 CREATININE, BRISSA 76.33 mg/dL >20 SP.GRAVITY, BRISSA 1.015 1.00 3-1.02 0 May 16, 2024 04:03 PM [facility] BENZODIAZEPINES SCREEN PANEL Specimen Type: URINE [...] May 16, 2024 01:45 PM Reporting Lab: [facility] [address] [facility] [address] Performing Lab: [address] [address] BENZODIAZEPINES SCREEN POSITIVE HH None-Detec dirk, Cutoff = 200 ng/mL PH, BRISSA 4.7 [pH] 4-10 CREATININE, BRISSA 76.90 mg/dL >20 SP.GRAVITY, BRISSA 1.015 1.00 3-1.02 0 May 16, 2024 04:03 PM [facility] CANNABINOIDS SCREEN PANEL Specimen Type: URINE [...] May 16, 2024 01:45 PM Reporting Lab: [address] [address] Performing Lab: [address] [address] CANNABINOIDS SCREEN NONE-DETECTED None-Detec dirk,Cutoff = 50 ng/mL PH, BRISSA 4.7 [pH] 4-10 CREATININE, BRISSA 76.90 mg/dL >20 SP.GRAVITY, BRISSA 1.015 1.00 3-1.02 0 May 16, 2024 04:03 PM [facility] BUPRENORPHINE SCREEN PANEL Specimen Type: URINE [...] May 16, 2024 01:45 PM Reporting Lab: [address] [address] Performing Lab: [address] [address] BUPRENORPHINE (URINE) POSITIVE HH None Detected, Cutoff = 10.0 ng/mL PH, BRISSA 4.7 [pH] 4-10 CREATININE, BRISSA 76.90 mg/dL >20 SP.GRAVITY, BRISSA 1.015 1.00 3-1.02 0 May 16, 2024 04:03 PM [facility] COCAINE SCREEN PANEL Specimen Type: URINE [...] May 16, 2024 01:45 PM Reporting Lab: [address] [address] Performing Lab: [address] [address] COCAINE SCREEN NONE-DETECTED N one-Detec dirk,Cutoff = 300 ng/mL PH, BRISSA 4.7 [pH] 4-10 CREATININE, BRISSA 76.90 mg/dL >20 SP.GRAVITY, BRISSA 1.015 1.00 3-1.02 0 May 16, 2024 04:03 PM [facility] OPIATES SCREEN PANEL Specimen Type: URINE [...] May 16, 2024 01:45 PM Reporting Lab: [address] [address] Performing Lab: [address] [address] OPIATES SCREEN POSITIVE HH None- Detec dirk, Cutoff = 300 ng/mL PH, BRISSA 4.7 [pH] 4-10 CREATININE, BRISSA 76.90 mg/dL >20 SP.GRAVITY, BRISSA 1.015 1.00 3-1.02 0 May 16, 2024 04:03 PM [facility] OXYCODONE SCREEN PANEL Specimen Type: URINE [...] May 16, 2024 01:45 PM Reporting Lab: [address] [address] Performing Lab: [address] [address] OXYCODONE SCREEN POSITIVE HH Non e-Detec dirk, [...] 06, 2024 09:00 AM [place]-TOBACCO FORMER USER [facility] Tobacco Use History This section includes a history of the smoking, or tobacco-related health factors, that were collected on or before the date of the Encounter. The data comes from the [place] facility where the Encounter took place. Date/Time Smoking Status/Tobac co Use Comment [facility] Mar 06, 2024 09:00 AM [place]-TOBACCO QUIT 15 YRS OR MORE [facility] Mar 31, 2023 11:00 AM VA-TOBACCO FORMER USER [facility] Mar 31, 2023 11:00 AM [place]-TOBACCO QUIT 1 TO < 5 YRS [facility] [place] [facility] Mar 25, 2022 10:30 AM VA-TOBACCO NEVER USED [place] [facility] [place] [facility] Mar 19, 2021 02:00 PM VA-TOBACCO FORMER USER [place] [facility] [place] [facility] Mar 19, 2021 02:00 PM VA-TOBACCO QUIT < 1 YEAR [facility] [place] [facility] Sep 20, 2018 11:24 AM VA-TOBACCO USE DECLINED TO ANSWER [place] [facility] [place] [facility] Oct 21, 2017 08:13 AM QUIT TOBACCO USE IN PAST YEAR [place] [facility] [place] [facility] Dec 30, 2016 08:28 AM QUIT TOBACCO USE 1-7 YEARS AGO [place] [facility] [place] [facility] Jun 04, 2016 08:43 AM QUIT TOBACCO USE 1-7 YEARS AGO [place] [facility] [place] [facility] May 17, 2015 08:45 AM QUIT TOBACCO USE 1-7 YEARS AGO quit 2 years ago. [place] [facility] [place] [facility] Jun 07, 2014 09:25 AM QUIT TOBACCO USE 1-7 YEARS AGO [place] [facility] [place] [facility] November 30, 2013 08:44 AM QUIT TOBACCO USE IN PAST YEAR [place] [facility] [place] [facility] May 22, 2013 10:10 AM QUIT TOBACCO USE IN PAST YEAR [place] [facility] [place] [facility] December 01, 2012 01:54 PM QUIT TOBACCO USE IN PAST YEAR [facility] [place] [facility] Jun 07, 2012 08:16 AM V1-PT DECLINES TOBACCO CESSATION MEDS [place] [facility] [place] [facility] Jun 07, 2012 08:16 AM V1-PT THINKING ABOUT QUIT TOBACCO USE [place] [facility] [place] [facility] Jan 05, 2012 09:00 AM CURRENT SMOKER intermittenly [place] [facility] [place] [facility] Jan 05, 2012 09:00 AM V1-PT DECLINES REF TO TOBACCO CESS PRGM [place] [facility] [place] [facility] Jan 05, 2012 09:00 AM V1-PT DECLINES TOBACCO CESSATION MEDS [facility] [place] [facility] Jan 05, 2012 09:00 AM V1-PT THINKING ABOUT QUIT TOBACCO USE [facility] Feb 17, 2011 09:52 AM V1-PT DECLINES TOBACCO CESSATION MEDS [facility] Feb 17, 2011 09:52 AM V1-PT THINKING ABOUT QUIT TOBACCO USE [facility] Aug 13, 2010 11:31 AM QUIT TOBACCO USE IN PAST YEAR [facility] Feb 19, 2010 01:26 PM QUIT TOBACCO USE IN PAST YEAR [facility] Sep 13, 2009 11:04 AM QUIT TOBACCO USE IN PAST YEAR [facility] Feb 05, 2009 08:29 AM V1-PT DECLINES REF TO TOBACCO CESS PRGM [facility] Feb 05, 2009 08:29 AM V1-PT DECLINES TOBACCO CESSATION MEDS [facility] Feb 05, 2009 08:29 AM V1-PT THINKING ABOUT QUIT TOBACCO USE [facility] Aug 22, 2008 09:04 AM QUIT TOBACCO USE IN PAST YEAR [facility] Mar 12, 2008 10:40 AM V1-PT DECLINES REF TO TOBACCO CESS PRGM [facility] Mar 12, 2008 10:40 AM V1-PT DECLINES TOBACCO CESSATION MEDS [facility] Mar 12, 2008 10:40 AM V1-PT NOT INTERESTED IN QUIT TOBACCO USE [facility] Mar 08, 2008 09:37 AM CURRENT SMOKER smokes one pack a day for about 10 years ago. [facility] Encounter Notes: All associated encounter notes This section contains the clinical notes associated to the Encounter. Date/Time Encounter Note(s) Provider Source May 24, 2024 09:06 AM TELEPHONE ENCOUNTE R NOTE: LOCAL TITLE: TELEPHONE NOTE/SPECIALTY CLINIC STANDARD TITLE: TELEPHONE ENCOUNTER NOTE DATE OF NOTE: MAY 24, 2024@09:06 ENTRY DATE: MAY 24, 2024@09:06:54 AUTHOR: LORI QUEVEDO EXP COSIGNER: URGENCY: STATUS: COMPLETED Called and spoke with pt to reminded them that they have a FTF appt with the Pain clinic on 05/25/2024 at 1130. Location was confirmed. /divya/ LORI QUEVEDO [employer] CONSERVATOR Signed: 05/24/2024 09:07 [facility]
--- OUTSIDE RECORDS SUMMARY | 2024-07-05 03:52 | XMS_ITS | Encounter Summary ---
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 Address [address] [place] [id number] Care Team Providers Care Sourcing Assistant Name Role Phone ROMANA CASTILLO Primary [...] Garcia's Name Patient's Relationship to Policy Garcia [facility] [address] [address] (MEDICAID) [facility] May 14, 2009 [id number] SAMPLE,ROCCO MOORE PATIENT [facility]ICAID [facility] May 14, 2009 [id number] SAMPLE,ROCCO MOORE PATIENT MEDICAID MEDICAID [facility] Jul 26, 2018 MEDICAI D [id number] SAMPLE,ROCCO MOORE PATIENT MEDICARE (WNR) MEDICARE (M) PART A November 24, 2015 PART A [id number] [id number] [id number] SAMPLE,ROCCO MOORE PATIENT MEDICARE (WNR) MEDICARE (M) PART B November 24, 2015 PART B [id number] [id number] ROCCO QUEZADA PATIENT Selected Encounter This section includes the information on record at [place] for the Encounter. Date/Time Encounter Type Encounter Description Reason Pro vider Source Jun 20, 2024 11:30 AM Outpatient Encounter PAIN CLINIC IHE Encounter Template Text not used by [place] Plan of Treatment: Future Appointments (+ 6 months) and Future Tests (+/- 45 days) The Plan of Treatment section includes future care activities for the patient from all [place] treatmentfacilities. This section includes future appointments and future orders which are active, pending or scheduled. Future Appointments This section includes appointments that were scheduled to occur 6 months from the date of the Encounter, up to a maximum of 20 appointments. The data comes from all [place] treatment facilities. Appointment Date/Time Appointment Type Appointme nt Facility Name Jul 13, 2024 10:00 AM AMBULATORY - MEDICINE [place] [facility] [place] [facility] Aug 24, 2024 11:00 AM AMBULATORY - MEDICINE [facility] [place] [place] [facility] Social History: Smoking Status (Most current) and Tobacco Use (All prior to encounter date) This section includes the most current, and the historical, smoking and tobacco- related health factors from the [place] facility where the Encounter took place. Current Smoking Status This section includes the most current smoking, or tobacco-related health factor, from the [place] facility where the Encounter took place. Date/Time Current Smoking Status Comment [facility] Mar 06, 2024 09:00 AM [place]-TOBACCO QUIT 15 YRS OR MORE [place] [facility] [place] [facility] Tobacco Use History This section includes a history of the smoking, or tobacco-related health factors, that were collected on or before the date of the Encounter. The data comes from the [place] facility where the Encounter took place. Date/Time Smoking Status/Tobac co Use Comment Facility Mar 06, 2024 09:00 AM VA-TOBACCO QUIT 15 YRS OR MORE [place] [facility] [place] [facility] Mar 31, 2023 11:00 AM VA-TOBACCO FORMER USER [place] [facility] [place] [facility] Mar 31, 2023 11:00 AM VA-TOBACCO QUIT 1 TO < 5 YRS [place] [facility] [place] [facility] Mar 25, 2022 10:30 AM VA-TOBACCO NEVER USED [place] [facility] [place] [facility] Mar 19, 2021 02:00 PM VA-TOBACCO FOR[facility] [place] [facility] Mar 19, 2021 02:00 PM VA-TOBACCO QUIT < 1 YEAR [facility] [place] [facility] Sep 20, 2018 11:24 AM VA-TOBACCO USE DECLINED TO ANSWER [facility] [place] [place] [facility] Oct 21, 2017 08:13 AM QUIT TOBACCO USE IN PAST YEAR [facility] [place] [facility] Dec 30, 2016 08:28 AM QUIT TOBACCO USE 1-7 YEARS AGO [place] [facility] [place] [facility] Jun 04, 2016 08:43 AM QUIT TOBACCO USE 1-7 YEARS AGO [facility] [place] [place] [facility] May 17, 2015 08:45 AM QUIT TOBACCO USE 1-7 YEARS AGO quit 2 years ago. [facility] [place] [facility] Jun 07, 2014 09:25 AM QUIT TOBACCO USE 1-7 YEARS AGO [facility] [place] [facility] November 30, 2013 08:44 AM QUIT TOBACCO USE IN PAST YEAR [facility] [place] [facility] May 22, 2013 10:10 AM QUIT TOBACCO USE IN PAST YEAR [facility] [place] [facility] December 01, 2012 01:54 PM QUIT TOBACCO USE IN PAST YEAR [facility] [place] [facility] Jun 07, 2012 08:16 AM V1-PT DECLINES TOBACCO CESSATION MEDS [facility] [place] [facility] Jun 07, 2012 08:16 AM V1-PT THINKING ABOUT QUIT TOBACCO USE [facility] [place] [facility] Jan 05, 2012 09:00 AM CURRENT SMOKER intermittenly [facility] [place] [facility] Jan 05, 2012 09:00 AM V1-PT DECLINES REF TO TOBACCO CESS PRGM [facility] [place] [facility] Jan 05, 2012 09:00 AM V1-PT DECLINES TOBACCO CESSATION MEDS [facility] [place] [facility] Jan 05, 2012 09:00 AM V1-PT THINKING ABOUT QUIT TOBACCO USE [facility] [place] [facility] Feb 17, 2011 09:52 AM V1-PT DECLINES TOBACCO CESSATION MEDS [facility] [place] [facility] Feb 17, 2011 09:52 AM V1-PT THINKING ABOUT QUIT TOBACCO USE [facility] Aug 13, 2010 11:31 AM QU[facility] Feb 19, 2010 01:26 PM QUIT TOBACCO USE IN [facility]ST [facility] Sep 13, 2009 11:04 AM [...] the Encounter. Date/Time Encounter Note(s) Provider Source Jun 15, 2024 02:45 PM ACCOUNTING OF DISC LOSURES NOTE: LOCAL TITLE: STATE PRESCRIPTION DRUG MONITORING PROGRAM STANDARD TITLE: ACCOUNTING OF DISCLOSURES NOTE DATE OF NOTE: JUN 15, 2024@14:45:42 ENTRY DATE: JUN 15, 2024@14:45:42 AUTHOR: GAL MADSEN COSIGNER: URGENCY: STATUS: COMPLETED This PDMP query was submitted by Gal Madsen MD. The clinical justification for this PDMP query is to review controlled substances prescribed outside of the [place], and any additional information that may become available, as an important component of standard clinical care, and in accordance with [facility] policy. Patient information was shared with the PDMP [place]. Prescription(s[facility] filled outside the [facility] in the last 90 days are noted. However, they do not raise significant safety concerns and do not influence the treatment plan at this time. Oxycodone 5 mg #15 filled by Meagan Farrar in [place] on 05/23/ Gal Madsen MD STAFF PHYSICIAN Signed: 06/15/2024 14:46 GAL MADSEN [place] [facility]
--- OUTSIDE RECORDS SUMMARY | 2024-07-05 03:52 | XMS_ITS | Encounter Summary ---
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 [place] [facility] [place] Address [address] [place] [id number] Care Team Providers Care Marketing Data Specialist Name Role Phone ROMANA CASTILLO Primary [...] Policy [facility] (MEDICAID) [facility] May 14, 2009 [id number] SAMPLE,ROCCO MOORE PATIENT [facility] MEDICAID [facility] May 14, 2009 [id number] SAMPLE,ROCCO MOORE PATIENT MEDICAID MEDICAID [facility] ESTEFANY Jul 26, 2018 MEDICAI D [id number] SAMPLE,ROCCO MOORE PATIENT MEDICARE (WNR) MEDICARE (M) PART A November 24, 2015 PART A [id number] SAMPLE,ROCCO MOORE PATIENT MEDICARE (WNR) MEDICARE (M) PART B November 24, 2015 PART B [id number] [phone] ROCCO QUEZADA PATIENT Selected Encounter This section includes the information on record at [place] for the Encounter. Date/Time Encounter Type Encounter Description Reason Pro vider Source May 21, 2024 12:00 AM Outpatient Encounter EVENT (HISTORICAL) IHE Encounter Template Text not used by PA Plan of Treatment: Future Appointments (+ 6 months) and Future Tests (+/- 45 days) The Plan of Treatment section includes future care activities for the patient from all [place] treatmentfacilities. This section includes future appointments and future orders which are active, pending or scheduled. Future Appointments This section includes appointments that were scheduled to occur 6 months from the date of the Encounter, up to a maximum of 20 appointments. The data comes from all [place] treatment facilities. Appointment Date/Time Appointment Type Appointme nt Facility Name May 25, 2024 11:30 AM AMBULATORY - MEDICINE [facility] Jul 13, 2024 10:[address] [facility] Aug 24, 2024 11:00 AM [facility] Lab Results: +/- 30 days of the encounter This section includes the Chemistry and Hematology Lab Results on record with PA for the patient. Radiology Reports and Pathology Reports are provided separately, in subsequent sections. Lab Results This section contains the Chemistry/Hematology Results that were resulted 30 days before or 30 daysafter the date of the Encounter. Date/Time Source Result Type Result - Unit Interpretation Reference Range Comment May 16, 2024 04:03 PM [facility] METHADONE SCREEN Specimen Type: URINE Comment: BRISSA test are qualitative, any L or H flags only indicate a PA alert was sent. Ordering Provider: RONAN MADSEN Report Released Date/Time: May 16, 2024 01:45 PM Reporting Lab: [facility] [address] [facility] [address] Performing Lab: [facility] [address] [facility] [address] METHADONE SCREEN None detected(Nega tive) L Negative May 16, 2024 04:03 PM [facility] ALCOHOL, ETHYL URINE PANEL Specimen [...] 16, 2024 01:45 PM Reporting Lab: [address] [address] Performing Lab: [address] [address] ALCOHOL, ETHYL URINE NONE-DETECTED mg/dL NONE-DETEC DIRK, cutoff = 10 mg/dL PH, BRISSA 4.7 [pH] 4-10 CREATININE, BRISSA 76.90 mg/dL >20 SP.GRAVITY, BRISSA 1.015 1.00 3-1.02 0 May 16, 2024 04:03 PM [facility] AMPHETAMINES SCREEN PANEL Specimen Type: URINE [...] 16, 2024 01:45 PM Reporting Lab: [address] [address] Performing Lab: [address] [address] AMPHETAMINES SCREEN NONE-DETECTED None-Detec dirk, Cutoff = 1000 ng/mL PH, BRISSA 4.7 [pH] 4-10 CREATININE, BRISSA 76.90 mg/dL >20 SP.GRAVITY, BRISSA 1.015 1.00 3-1.02 0 May 16, 2024 04:03 PM [facility] BENZODIAZEPINES SCREEN PANEL Specimen Type: URINE [...] 16, 2024 01:45 PM Reporting Lab: [address] [address] Performing Lab: [address] [address] BENZODIAZEPINES SCREEN POSITIVE HH None-Detec dirk, Cutoff = 200 ng/mL PH, BRISSA 4.7 [pH] 4-10 CREATININE, BRISSA 76.90 mg/dL >20 SP.GRAVITY, BRISSA 1.015 1.00 3-1.02 0 May 16, 2024 04:03 PM [facility] FENTANYL SCREEN PANEL Specimen Type: URINE [...] 16, 2024 01:45 PM Reporting Lab: [address] [address] Performing Lab: [address] [address] FENTANYL SCREEN NONE-DETECTE D ng/mL Negative: Cutoff = 1.00 ng/mL PH, BRISSA 4.7 [pH] 4-10 CREATININE, BRISSA 76.33 mg/dL >20 SP.GRAVITY, BRISSA 1.015 1.00 3-1.02 0 May 16, 2024 04:03 PM [facility] BUPRENORPHINE SCREEN PANEL Specimen Type: URINE [...] 16, 2024 01:45 PM Reporting Lab: [address] [address] Performing Lab: [address] [address] BUPRENORPHINE (URINE) POSITIVE HH None Detected, Cutoff = 10.0 ng/mL PH, BRISSA 4.7 [pH] 4-10 CREATININE, BRISSA 76.90 mg/dL >20 SP.GRAVITY, BRISSA 1.015 1.00 3-1.02 0 May 16, 2024 04:03 PM [facility] CANNABINOIDS SCREEN PANEL Specimen Type: URINE [...] 16, 2024 01:45 PM Reporting Lab: [address] [address] Performing Lab: [address] [address] CANNABINOIDS SCREEN NONE-DETECTED None-Detec dirk,Cutoff = 50 ng/mL PH, BRISSA 4.7 [pH] 4-10 CREATININE, BRISSA 76.90 mg/dL >20 SP.GRAVITY, BRISSA 1.015 1.00 3-1.02 0 May 16, 2024 04:03 PM [facility] COCAINE SCREEN PANEL Specimen Type: URINE [...] 16, 2024 01:45 PM Reporting Lab: [address] [address] Performing Lab: [address] [address] COCAINE SCREEN NONE-DETECTED N one-Detec dirk,Cutoff = 300 ng/mL PH, BRISSA 4.7 [pH] 4-10 CREATININE, BRISSA 76.90 mg/dL >20 SP.GRAVITY, BRISSA 1.015 1.00 3-1.02 0 May 16, 2024 04:03 PM [facility] OPIATES SCREEN PANEL Specimen Type: URINE [...] 16, 2024 01:45 PM Reporting Lab: [address] [address] Performing Lab: [address] [address] OPIATES SCREEN POSITIVE HH None- Detec dirk, Cutoff = 300 ng/mL PH, BRISSA 4.7 [pH] 4-10 CREATININE, BRISSA 76.90 mg/dL >20 SP.GRAVITY, BRISSA 1.015 1.00 3-1.02 0 May 16, 2024 04:03 PM [facility] OXYCODONE SCREEN PANEL Specimen Type: URINE [...] 16, 2024 01:45 PM Reporting Lab: [address] [address] Performing Lab: [address] [address] OXYCODONE SCREEN POSITIVE HH Non e-Detec dirk, Cutoff = 100 ng/mL PH, BRISSA 4.7 [pH] 4-10 CREATININE, BRISSA 76.90 mg/dL >20 SP.GRAVITY, BRISSA 1.015 1.00 3-1.02 0 Social History: Smoking Status (Most current) and Tobacco Use (All prior to encounter date) This section includes the most current, and the historical, smoking and tobacco- related health factors from the [place] facility where the Encounter took place. Current Smoking Status This section includes the most current smoking, or tobacco-related health factor, from the [place] facility where the Encounter took place. Date/Time Current Smoking Status Comment Rosana humphrey Mar 06, 2024 09:00 AM VA-TOBACCO FORMER USER [facility] Tobacco Use History This section includes a history of the smoking, or tobacco-related health factors, that were collected on or before the date of the Encounter. The data comes from the [place] facility where the Encounter took place. Date/Time Smoking Status/Tobac co Use Comment [facility] Mar 06, 2024 09:00 AM PA-TOBACCO QUIT 15 YRS OR MORE [facility] Mar 31, 2023 11:00 AM VA-TOBACCO FORMER USER [facility] Mar 31, 2023 11:00 AM PA-TOBACCO QUIT 1 TO < 5 YRS [facility] [place] [facility] Mar 25, 2022 10:30 AM VA-TOBACCO [facility]ED [facility] [place] [facility] Mar 19, 2021 02:00 PM VA-TOBACCO FORMER USER [facility] [place] [facility] Mar 19, 2021 02:00 PM VA-TOBACCO QUIT < 1 YEAR [facility] [place] [facility] Sep 20, 2018 11:24 AM VA-TOBACCO USE DECLINED TO ANSWER [facility] [place] [facility] Oct 21, 2017 08:13 AM QUIT TOBACCO USE IN PAST YEAR [facility] [place] [facility] Dec 30, 2016 08:28 AM QUIT TOBACCO USE 1-7 YEARS AGO [facility] [place] [facility] Jun 04, 2016 08:43 AM QUIT TOBACCO USE 1-7 YEARS AGO [facility] [place] [facility] May 17, 2015 08:45 AM QUIT TOBACCO USE 1-7 YEARS AGO quit 2 years ago. [facility] [place] [facility] Jun 07, 2014 09:25 AM QUIT TOBACCO USE 1-7 YEARS AGO [facility] [place] [facility] November 30, 2013 08:44 AM QUIT TOBACCO USE IN PAST YEAR [facility] [place] [facility] May 22, 2013 10:10 AM QUIT TOBACCO USE IN PAST YEAR [facility] [place] [facility] December 01, 2012 01:54 PM QUIT TOBACCO USE IN PAST YEAR [facility] [place] [facility] Jun 07, 2012 08:16 AM V1-PT DECLINES TOBACCO CESSATION MEDS [facility] [place] [facility] Jun 07, 2012 08:16 AM V1-PT THINKING ABOUT QUIT TOBACCO USE [facility] [place] [facility] Jan 05, 2012 09:00 AM CURRENT SMOKER intermittenly [facility] [place] [facility] Jan 05, 2012 09:00 AM V1-PT DECLINES REF TO TOBACCO CESS PRGM [facility] [place] [facility] Jan 05, 2012 09:00 AM V1-PT DECLINES TOBACCO CESSATION MEDS [facility] [place] [facility] Jan 05, 2012 09:00 AM V1-PT THINKING ABOUT QUIT TOBACCO USE [facility] Feb 17, 2011 09:52 AM V1-PT DECLINES TOBACCO CESSATION MEDS [facility] LU[facility] MARIAN [facility] Feb 17, 2011 09:52 AM V1-PT THINKING ABOUT QUIT TOBACCO USE [facility] Aug 13, 2010 11:31 AM QUIT TOBACCO USE IN PAST YEAR [facility] Feb 19, 2010 01:26 PM QUIT TOBACCO USE IN PAST YEAR [facility] Sep 13, 2009 11:04 AM QUIT TOBACCO USE IN PAST YEAR [facility] Feb 05, 2009 08:29 AM V1-PT DECLINES REF TO TOBACCO CESS PRGM [facility] Feb 05, 2009 08:29 AM V1-PT DECLINES TOBACCO CESSATION MEDS [facility] Feb 05, 2009 08:29 AM V1-PT THINKING ABOUT QUIT TOBACCO USE [facility] Aug 22, 2008 09:04 AM QUIT TOBACCO USE IN PAST YEAR [facility] Mar 12, 2008 10:40 AM V1-PT DECLINES REF TO TOBACCO CESS PRGM [facility] Mar 12, 2008 10:40 AM V1-PT DECLINES TOBACCO CESSATION MEDS [facility] Mar 12, 2008 10:40 AM V1-PT NOT INTERESTED IN QUIT TOBACCO USE [facility] Mar 08, 2008 09:37 AM CURRENT SMOKER smokes one pack a day for about 10 years ago. [facility] Encounter Notes: All associated encounter notes This section contains the clinical notes associated to the Encounter. Date/Time Encounter Note(s) Provider Source May 21, 2024 12:00 AM NONVA NOTE: LOCAL TITLE: NON-VA HOSPITALIZATIONS/ER STANDARD TITLE: NONVA NOTE DATE OF NOTE: MAY 21, 2024 ENTRY DATE: JUN 16, 2024@14:25:35 AUTHOR: DAYAN PAULINO COSIGNER: URGENCY: STATUS: COMPLETED VistA Imaging - Scanned Document SCANNED DOCUMENT SIGNATURE NOT REQUIRED Electronically Filed: 06/16/2024 by: DAYAN PAULINO CRIMINAL INVESTIGATOR [employer] DAYAN PAULINO [facility]
--- OUTSIDE RECORDS SUMMARY | 2024-07-05 03:52 | XMS_ITS | Encounter Summary ---
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 Dairy Feed Mixing Operator Name Role Phone ROMANA CASTILLO Primary [...] Garcia's Name Patient's Relationship to Policy Garcia [facility] (MEDICAID) [place]ID [place] DE[place] HUMAN [facility] May 14, 2009 [id number] SAMPLE,ROCCO MOORE PATIENT [facility]ID [facility] May 14, 2009 [id number] SAMPLE,ROCCO MOORE PATIENT MEDICAID MEDICAID [facility] Jul 26, 2018 MEDICAI D [id number] SAMPLE,ROCCO MOORE PATIENT MEDICARE (WNR) MEDICARE (M) PART A November 24, 2015 PART A [id number] SAMPLE,ROCCO MOORE PATIENT MEDICARE (WNR) MEDICARE (M) PART B November 24, 2015 PART B [id number] SAMPLE,ROCCO MOORE PATIENT Selected Encounter This section includes the information on record at MD for the Encounter. Date/Time Encounter Type Encounter Description Reason Pro vider Source May 30, 2024 09:07 AM Outpatient Encounter ADMIN PAT ACTIVTIES (MASNONCT) [...] 2024 10:00 AM [facility] Aug 24, 2024 11:00 AM [facility] Lab Results: +/- 30 days of the encounter This section includes the Chemistry and Hematology Lab Results on record with MD for the patient. Radiology Reports and Pathology Reports are provided separately, in subsequent sections. Lab Results This section contains the Chemistry/Hematology Results that were resulted 30 days before or 30 daysafter the date of the Encounter. Date/Time Source Result Type Result - Unit Interpretation Reference Range Comment May 16, 2024 04:03 PM [facility] METHADONE SCREEN Specimen Type: URINE Comment: BRISSA test are qualitative, any L or H flags only indicate a MD alert was sent. Ordering Provider: RONAN MADSEN Report Released Date/Time: May 16, 2024 01:45 PM Reporting Lab: [facility] [address] [facility] [address] Performing Lab: [facility] [address] [facility] [address] METHADONE SCREEN None detected(Nega tive) L Negative May 16, 2024 04:03 PM MD CNTR [facility] AMPHETAMINES SCREEN PANEL Specimen Type: URINE [...] May 16, 2024 01:45 PM Reporting Lab: [address] [address] Performing Lab: [address] [address] AMPHETAMINES SCREEN NONE-DETECTED None-Detec dirk, Cutoff = 1000 ng/mL PH, BRISSA 4.7 [pH] 4-10 CREATININE, BRISSA 76.90 mg/dL >20 SP.GRAVITY, BRISSA 1.015 1.00 3-1.02 0 May 16, 2024 04:03 PM [facility] ALCOHOL, ETHYL URINE PANEL Specimen Type: [...] May 16, 2024 01:45 PM Reporting Lab: [address] [address] Performing Lab: [address] [address] ALCOHOL, ETHYL URINE NONE-DETECTED mg/dL NONE-DETEC DIRK, cutoff = 10 mg/dL PH, BRISSA 4.7 [pH] 4-10 CREATININE, BRISSA 76.90 mg/dL >20 SP.GRAVITY, BRISSA 1.015 1.00 3-1.02 0 May 16, 2024 04:03 PM [facility] FENTANYL SCREEN PANEL Specimen Type: URINE [...] May 16, 2024 01:45 PM Reporting Lab: [address] [address] Performing Lab: [address] [address] FENTANYL SCREEN NONE-DETECTE D ng/mL Negative: Cutoff = 1.00 ng/mL PH, BRISSA 4.7 [pH] 4-10 CREATININE, BRISSA 76.33 mg/dL >20 SP.GRAVITY, BRISSA 1.015 1.00 3-1.02 0 May 16, 2024 04:03 PM [facility] BENZODIAZEPINES SCREEN PANEL Specimen Type: URINE [...] May 16, 2024 01:45 PM Reporting Lab: [address] [address] Performing Lab: [address] [address] BENZODIAZEPINES SCREEN POSITIVE HH None-Detec dirk, Cutoff = 200 ng/mL PH, BRISSA 4.7 [pH] 4-10 CREATININE, BRISSA 76.90 mg/dL >20 SP.GRAVITY, BRISSA 1.015 1.00 3-1.02 0 May 16, 2024 04:03 PM [facility] CANNABINOIDS SCREEN PANEL Specimen Type: URINE [...] May 16, 2024 01:45 PM Reporting Lab: [address] [address] Performing Lab: [address] [address] CANNABINOIDS SCREEN NONE-DETECTED None-Detec dirk,Cutoff = 50 ng/mL PH, BRISSA 4.7 [pH] 4-10 CREATININE, BRISSA 76.90 mg/dL >20 SP.GRAVITY, BRISSA 1.015 1.00 3-1.02 0 May 16, 2024 04:03 PM [facility] BUPRENORPHINE SCREEN PANEL Specimen Type: URINE [...] May 16, 2024 01:45 PM Reporting Lab: [address] [address] Performing Lab: [address] [address] BUPRENORPHINE (URINE) POSITIVE HH None Detected, Cutoff = 10.0 ng/mL PH, BRISSA 4.7 [pH] 4-10 CREATININE, BRISSA 76.90 mg/dL >20 SP.GRAVITY, BRISSA 1.015 1.00 3-1.02 0 May 16, 2024 04:03 PM [facility] COCAINE SCREEN PANEL Specimen Type: URINE [...] May 16, 2024 01:45 PM Reporting Lab: [address] [address] Performing Lab: [address] [address] COCAINE SCREEN NONE-DETECTED N one-Detec dirk,Cutoff = 300 ng/mL PH, BRISSA 4.7 [pH] 4-10 CREATININE, BRISSA 76.90 mg/dL >20 SP.GRAVITY, BRISSA 1.015 1.00 3-1.02 0 May 16, 2024 04:03 PM [facility] OPIATES SCREEN PANEL Specimen Type: URINE [...] May 16, 2024 01:45 PM Reporting Lab: [address] [address] Performing Lab: [address] [address] OPIATES SCREEN POSITIVE HH None- Detec dirk, Cutoff = 300 ng/mL PH, BRISSA 4.7 [pH] 4-10 CREATININE, BRISSA 76.90 mg/dL >20 SP.GRAVITY, BRISSA 1.015 1.00 3-1.02 0 May 16, 2024 04:03 PM [facility] OXYCODONE SCREEN PANEL Specimen Type: URINE [...] May 16, 2024 01:45 PM Reporting Lab: [facility] [address] [facility] [address] Performing Lab: [address] [address] OXYCODONE SCREEN POSITIVE HH Non e-Detec dirk, [...] Rosana humphrey Mar 06, 2024 09:00 AM [place]-TOBACCO FORMER USER [facility] Tobacco Use History This section includes a history of the smoking, or tobacco-related health factors, that were collected on or before the date of the Encounter. The data comes from the MD facility where the Encounter took place. Date/Time Smoking Status/Tobac co Use Comment Facility Mar 06, 2024 09:00 AM [place]-TOBACCO QUIT 15 YRS OR MORE [facility] Mar 31, 2023 11:00 AM VA-TOBACCO FORMER USER [facility] Mar 31, 2023 11:00 AM VA-TOBACCO QUIT 1 TO < 5 YRS [facility] Mar 25, 2022 10:30 AM VA-TOBACCO NEVER USED [place] CNTR [place] [facility] Mar 19, 2021 02:00 PM VA-TOBACCO FORMER USER [place] CNTR [place] [facility] Mar 19, 2021 02:00 PM VA-TOBACCO QUIT < 1 YEAR [facility] [place] [facility] Sep 20, 2018 11:24 AM VA-TOBACCO USE DECLINED TO ANSWER [facility] [place] [facility] Oct 21, 2017 08:13 AM QUIT TOBACCO USE IN PAST YEAR [place] CNTR [place] [facility] Dec 30, 2016 08:28 AM QUIT TOBACCO USE 1-7 YEARS AGO [place] CNTR [place] [facility] Jun 04, 2016 08:43 AM QUIT TOBACCO USE 1-7 YEARS AGO [place] CNTR [place] [facility] May 17, 2015 08:45 AM QUIT TOBACCO USE 1-7 YEARS AGO quit 2 years ago. [facility] [place] [facility] Jun 07, 2014 09:25 AM QUIT TOBACCO USE 1-7 YEARS AGO [place] CNTR [place] [facility] November 30, 2013 08:44 AM QUIT TOBACCO USE IN PAST YEAR [place] CNTR [place] [facility] May 22, 2013 10:10 AM QUIT TOBACCO USE IN PAST YEAR [place] CNTR [place] [facility] December 01, 2012 01:54 PM QUIT TOBACCO USE IN PAST YEAR [facility] [place] [facility] Jun 07, 2012 08:16 AM V1-PT DECLINES TOBACCO CESSATION MEDS [facility] [place] [facility] Jun 07, 2012 08:16 AM V1-PT THINKING ABOUT QUIT TOBACCO USE [facility] [place] [facility] Jan 05, 2012 09:00 AM CURRENT SMOKER intermittenly [facility] [place] [facility] Jan 05, 2012 09:00 AM V1-PT DECLINES REF TO TOBACCO CESS PRGM [place] CNTR [place] [facility] Jan 05, 2012 09:00 AM V1-PT DECLINES TOBACCO CESSATION MEDS [facility] [place] [facility] Jan 05, 2012 09:00 AM V1-PT THINKING ABOUT QUIT TOBACCO USE [facility] [place] [facility] Feb 17, 2011 09:52 AM V1-PT DECLINES TOBACCO CESSATION MEDS [facility] Feb 17, 2011 09:52 AM V1-PT THINKING ABOUT QUIT TOBACCO USE [facility] Aug 13, 2010 11:31 AM QUIT TOBACCO USE IN PAST YEAR [facility] Feb 19, 2010 01:26 PM QUIT TOBACCO USE IN PAST YEAR [facility] Sep 13, 2009 11:04 AM QUIT TOBACCO USE IN PAST YEAR [facility] Feb 05, 2009 08:29 AM V1-PT DECLINES REF TO TOBACCO CESS PRGM [facility] Feb 05, 2009 08:29 AM V1-PT DECLINES TOBACCO CESSATION MEDS [facility] Feb 05, 2009 08:29 AM V1-PT THINKING ABOUT QUIT TOBACCO USE [facility] Aug 22, 2008 09:04 AM QUIT TOBACCO USE IN PAST YEAR [facility] Mar 12, 2008 10:40 AM V1-PT DECLINES REF TO TOBACCO CESS PRGM [facility] Mar 12, 2008 10:40 AM V1-PT DECLINES TOBACCO CESSATION MEDS [facility] Mar 12, 2008 10:40 AM V1-PT NOT INTERESTED IN QUIT TOBACCO USE [facility] Mar 08, 2008 09:37 AM CURRENT SMOKER smokes one pack a day for about 10 years ago. [facility] Encounter Notes: All associated encounter notes This section contains the clinical notes associated to the Encounter. Date/Time Encounter Note(s) Provider Source May 30, 2024 09:07 AM ADMINISTRATIVE NOT E: LOCAL TITLE: CCC: SCHEDULING ADMINISTRATION STANDARD TITLE: ADMINISTRATIVE NOTE DATE OF NOTE: MAY 30, 2024@09:07:09 ENTRY DATE: MAY 30, 2024@09:07:09 AUTHOR: CALLUM LINO COSIGNER: URGENCY: STATUS: COMPLETED CCC: SCHEDULING ADMINISTRATION Has ADDENDA Patient Demographics Patient Name: REID QUEZADA Patient Primary Phone: [phone] Patient Primary Address: [address] [place] [address] Patient : 1960 Patient Age: 64 Call Back Number: [phone] Caller/Recipient Relation to Patient: Other If Other Describe Relation to Patient: [facility] Caller Name: Edith Administrative Administrative Note Reason: Home Health / Correction Administrative Note Comments: Edith of [facility] requesting a call back REILLY from [facility] regarding critical lab findings. Edith can be reached at [phone] IMPORTANT: This note was created by [facility] Clinical Contact Center staff. Please do not alert the staff member by adding them as a signer for future communications. Alerts are not monitored by this user. /isabella LINO MSA Signed: 05/30/2024 09:07 Receipt Acknowledged By: 05/30/2024 11:46 /divya/ VIKTOR BLOOD REGISTERED NURSE 05/30/2024 10:25 /divya/ Fabiola Hooker RN Primary Care Staff Nurse 05/30/2024 ADDENDUM STATUS: COMPLETED I have called the above [facility] number x3- from my own phone and different phones- and the number does not connect at all. /isabella Hooker RN Primary Care Staff Nurse Signed: 05/30/2024 09:20 05/30/2024 ADDENDUM STATUS: COMPLETED Staff Physical Therapy Assistant spoke with Edith from [facility]. Edith read back lab orders which indicated that a [facility] PCP ordered labs. Edith will update chart to reflect this. Umair has a critcal lab of 6.8 potassium. Edith will call [facility] [employer] community PCP directly as well. This mortgage loan underwriter did advise that Vet should go back to ER d/t just being recently dc'd from [facility] for acute renal failure and yperkalemia /isabella Hooker RN Primary Care Staff Nurse Signed: 05/30/2024 10:29 CALLUM LINO MD CNTRL WSTRN [facility]
--- OUTSIDE RECORDS SUMMARY | 2024-07-05 03:52 | XMS_ITS | Encounter Summary ---
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 Address [address] [place] [address] Care Team Providers Care Hydraulic Engineer Name Role Phone ROMANA CASTILLO Primary [...] Name Patient's Relationship to Policy Garcia [facility] (MEDICAID) [facility] May 14, 2009 [id number] SAMPLE,ROCCO MOORE PATIENT [facility] MEDICAID [facility] May 14, 2009 [id number] SAMPLE,ROCCO MOORE PATIENT MEDICAID MEDICAID [facility] Jul 26, 2018 MEDICAI D [id number] SAMPLE,ROCCO MOORE PATIENT MEDICARE (WNR) MEDICARE (M) PART A November 24, 2015 PART A [id number] SAMPLE,ROCCO MOORE PATIENT MEDICARE (WNR) MEDICARE (M) PART B November 24, 2015 PART B [id number] [phone] ROCCO QUEZADA PATIENT Selected Encounter This section includes the information on record at [place] for the Encounter. Date/Time Encounter Type Encounter Description Reason Pro vider Source Jun 01, 2024 12:00 AM Outpatient Encounter EVENT (HISTORICAL) IHE Encounter Template Text not used by [place] Plan of Treatment: Future Appointments (+ 6 [...] 13, 2024 10:00 AM [facility] Aug 24, 2024 11:00 AM [facility] Lab Results: +/- 30 days [...] Range Comment May 16, 2024 04:03 PM [facility] METHADONE SCREEN Specimen Type: URINE Comment: BRISSA test are qualitative, any L or H flags only indicate a [place] alert was sent. Ordering Provider: RONAN MADSEN Report Released Date/Time: May 16, 2024 01:45 PM Reporting [facility] [place] [facility] [address] [facility] [address] Performing Lab: [facility] [address] [facility] [address] METHADONE SCREEN None detected(Nega tive) L Negative May 16, 2024 04:03 PM [facility] ALCOHOL, ETHYL URINE PANEL Specimen Type: [...] May 16, 2024 01:45 PM Reporting Lab: [address] [address] Performing Lab: [address] [address] ALCOHOL, ETHYL URINE NONE-DETECTED mg/dL NONE-DETEC DIRK, cutoff = 10 mg/dL PH, BRISSA 4.7 [pH] 4-10 CREATININE, BRISSA 76.90 mg/dL >20 SP.GRAVITY, BRISSA 1.015 1.00 3-1.02 0 May 16, 2024 04:03 PM [facility] AMPHETAMINES SCREEN PANEL Specimen Type: URINE [...] May 16, 2024 01:45 PM Reporting Lab: [address] [address] Performing Lab: [address] [address] AMPHETAMINES SCREEN NONE-DETECTED None-Detec dirk, Cutoff = 1000 ng/mL PH, BRISSA 4.7 [pH] 4-10 CREATININE, BRISSA 76.90 mg/dL >20 SP.GRAVITY, BRISSA 1.015 1.00 3-1.02 0 May 16, 2024 04:03 PM [facility] FENTANYL SCREEN PANEL Specimen Type: URINE [...] May 16, 2024 01:45 PM Reporting Lab: [address] [address] Performing Lab: [address] [address] FENTANYL SCREEN NONE-DETECTE D ng/mL Negative: Cutoff = 1.00 ng/mL PH, BRISSA 4.7 [pH] 4-10 CREATININE, BRISSA 76.33 mg/dL >20 SP.GRAVITY, BRISSA 1.015 1.00 3-1.02 0 May 16, 2024 04:03 PM [facility] CANNABINOIDS SCREEN PANEL Specimen Type: URINE [...] May 16, 2024 01:45 PM Reporting Lab: [address] [address] Performing Lab: [address] [address] CANNABINOIDS SCREEN NONE-DETECTED None-Detec dirk,Cutoff = 50 ng/mL PH, BRISSA 4.7 [pH] 4-10 CREATININE, BRISSA 76.90 mg/dL >20 SP.GRAVITY, BRISSA 1.015 1.00 3-1.02 0 May 16, 2024 04:03 PM [facility] BENZODIAZEPINES SCREEN PANEL Specimen Type: URINE [...] May 16, 2024 01:45 PM Reporting Lab: [address] [address] Performing Lab: [address] [address] BENZODIAZEPINES SCREEN POSITIVE HH None-Detec dirk, Cutoff = 200 ng/mL PH, BRISSA 4.7 [pH] 4-10 CREATININE, BRISSA 76.90 mg/dL >20 SP.GRAVITY, BRISSA 1.015 1.00 3-1.02 0 May 16, 2024 04:03 PM [facility] BUPRENORPHINE SCREEN PANEL Specimen Type: URINE [...] May 16, 2024 01:45 PM Reporting Lab: [address] [address] Performing Lab: [address] [address] BUPRENORPHINE (URINE) POSITIVE HH None Detected, Cutoff = 10.0 ng/mL PH, BRISSA 4.7 [pH] 4-10 CREATININE, BRISSA 76.90 mg/dL >20 SP.GRAVITY, BRISSA 1.015 1.00 3-1.02 0 May 16, 2024 04:03 PM [facility] COCAINE SCREEN PANEL Specimen Type: URINE [...] May 16, 2024 01:45 PM Reporting Lab: [address] [address] Performing Lab: [address] [address] COCAINE SCREEN NONE-DETECTED N one-Detec dirk,Cutoff = 300 ng/mL PH, BRISSA 4.7 [pH] 4-10 CREATININE, BRISSA 76.90 mg/dL >20 SP.GRAVITY, BRISSA 1.015 1.00 3-1.02 0 May 16, 2024 04:03 PM [facility] OPIATES SCREEN PANEL Specimen Type: URINE [...] May 16, 2024 01:45 PM Reporting Lab: [address] [address] Performing Lab: [address] [address] OPIATES SCREEN POSITIVE HH None- Detec dirk, Cutoff = 300 ng/mL PH, BRISSA 4.7 [pH] 4-10 CREATININE, BRISSA 76.90 mg/dL >20 SP.GRAVITY, BRISSA 1.015 1.00 3-1.02 0 May 16, 2024 04:03 PM [facility] OXYCODONE SCREEN PANEL Specimen Type: URINE [...] 11 may have been adulterated. Ordering Provider: RNOAN MADSEN Report Released Date/Time: May 16, 2024 01:45 PM Reporting Lab: [facility] [address] [facility] [address] Performing Lab: [address] [address] OXYCODONE SCREEN POSITIVE HH Non e-Detec dirk, [...] took place. Date/Time Current Smoking Status Comment [facility] Mar 06, 2024 09:00 AM [place]-TOBACCO QUIT 15 YRS OR MORE [facility] Tobacco Use History This section includes a history of the smoking, or tobacco-related health factors, that were collected on or before the date of the Encounter. The data comes from the [place] facility where the Encounter took place. Date/Time Smoking Status/Tobac co Use Comment Facility Mar 06, 2024 09:00 AM [place]-TOBACCO QUIT 15 YRS OR MORE [facility] Mar 31, 2023 11:00 AM VA-TOBACCO FORMER USER [facility] Mar 31, 2023 11:00 AM [place]-TOBACCO QUIT 1 TO < 5 YRS [facility] Mar 25, 2022 10:30 AM VA-TOBACCO NEVER USED [facility] [place] [facility] Mar 19, 2021 02:00 PM VA-TOBACCO FORMER USER [place] [facility]TR [place] [facility] Mar 19, 2021 02:00 PM VA-TOBACCO QUIT < 1 YEAR [place] [facility] [place] [facility] Sep 20, 2018 11:24 AM VA-TOBACCO USE DECLINED TO ANSWER [facility] [place] [facility] Oct 21, 2017 08:13 AM QUIT TOBACCO USE IN PAST YEAR [place] [facility] [place] [facility] Dec 30, 2016 08:28 AM QUIT TOBACCO USE 1-7 YEARS AGO [place] [facility] [place] [facility] Jun 04, 2016 08:43 AM QUIT TOBACCO USE 1-7 YEARS AGO [place] [facility] [place] [facility] May 17, 2015 08:45 AM QUIT TOBACCO USE 1-7 YEARS AGO quit 2 years ago. [facility] [place] [facility] Jun 07, 2014 09:25 AM QUIT TOBACCO USE 1-7 YEARS AGO [place] [facility] [place] [facility] November 30, 2013 08:44 AM QUIT TOBACCO USE IN PAST YEAR [place] [facility] [place] [facility] May 22, 2013 10:10 AM QUIT TOBACCO USE IN PAST YEAR [place] [facility] [place] [facility] December 01, 2012 01:54 PM QUIT TOBACCO USE IN PAST YEAR [facility] [place] [facility] Jun 07, 2012 08:16 AM V1-PT DECLINES TOBACCO CESSATION MEDS [facility] [place] [facility] Jun 07, 2012 08:16 AM V1-PT THINKING ABOUT QUIT TOBACCO USE [place] CNTR [place] [facility] Jan 05, 2012 09:00 AM CURRENT SMOKER intermittenly [facility] [place] [facility] Jan 05, 2012 09:00 AM V1-PT DECLINES REF TO TOBACCO CESS PR[facility] [place] [place] [facility] Jan 05, 2012 09:00 AM V1-PT DECLINES TOBACCO CESSATION MEDS [facility] [place] [facility] Jan 05, 2012 09:00 AM V1-PT THINKING ABOUT QUIT TOBACCO USE [place] CNTR [place] [facility] Feb 17, 2011 09:52 AM V1-PT DECLINES TOBACCO CESSATION MEDS [facility] Feb 17, 2011 09:52 AM V1-PT THINKING ABOUT QUIT TOBACCO USE [facility] Aug 13, 2010 11:31 AM QUIT TOBACCO USE IN PAST YEAR [facility] Feb 19, 2010 01:26 PM QUIT TOBACCO USE IN PAST YEAR [facility] Sep 13, 2009 11:04 AM QUIT TOBACCO USE IN PAST YEAR [facility] Feb 05, 2009 08:29 AM V1-PT DECLINES REF TO TOBACCO CESS PRGM [facility] Feb 05, 2009 08:29 AM V1-PT DECLINES TOBACCO CESSATION MEDS [facility] Feb 05, 2009 08:29 AM V1-PT THINKING ABOUT QUIT TOBACCO USE [facility] Aug 22, 2008 09:04 AM QUIT TOBACCO USE IN PAST YEAR [facility] Mar 12, 2008 10:40 AM V1-PT DECLINES REF TO TOBACCO CESS [facility] Mar 12, 2008 10:40 AM V1-PT DECLINES TOBACCO CESSATION [facility] Mar 12, 2008 10:40 AM V1-PT NOT INTERESTED IN QUIT TOBACCO USE [facility] Mar 08, 2008 09:37 AM CURRENT SMOKER smokes one pack a day for about 10 years ago. [facility] Encounter Notes: All associated encounter notes This section contains the clinical notes associated to the Encounter. Date/Time Encounter Note(s) Provider Source Jun 01, 2024 12:00 AM NONVA NOTE: LOCAL TITLE: NON-WI OUTPATIENT NOTES STANDARD TITLE: NONVA NOTE DATE OF NOTE: JUN 01, 2024 ENTRY DATE: JUN 08, 2024@09:36:01 AUTHOR: GAVIN ESTRELLA EXP COSIGNER: URGENCY: STATUS: COMPLETED VistA Imaging - Scanned Document SCANNED DOCUMENT SIGNATURE NOT REQUIRED Electronically Filed: 06/08/2024 by: GAVIN [facility]
--- OUTSIDE RECORDS SUMMARY | 2024-07-05 03:52 | XMS_ITS | Encounter Summary ---
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 Organization [facility] [place] Address [address] [place] [id number] Care Team Providers Care Doll Eye Setter Name Role Phone ROMANA CASTILLO Primary Care [...] Garcia's Name Patient's Relationship to Policy Garcia [facility] (MEDICAID[facility] May 14, 2009 [id number] SAMPLE,ROCCO MOORE PATIENT [facility]ICAID [facility] May 14, 2009 [id number] SAMPLE,ROCCO MOORE PATIENT MEDICAID MEDICAID [facility] [place] Jul 26, 2018 MEDICAI D [id number] SAMPLE,ROCCO MOORE PATIENT MEDICARE (WNR) MEDICARE (M) PART A November 24, 2015 PART A [id number] SAMPLE,ROCCO MOORE PATIENT MEDICARE (WNR) MEDICARE (M) PART B November 24, 2015 PART B [id number] [phone] ROCCO QUEZADA PATIENT Selected Encounter This section includes the information on record at [place] for the Encounter. Date/Time Encounter Type Encounter Description Reason Pro vider Source Jun 15, 2024 02:34 PM Outpatient Encounter [facility]IN [facility]INIC [facility] Encounter [...] 13, 2024 10:00 AM AMBULATORY [place]ICINE [place] [facility] [place] [facility] Aug 24, 2024 11:00 AM AMBULATORY - MEDICINE [place] [facility] [place] [facility] Social History: [...] Current Smoking Status Comment [facility] Mar 06, 2024 09:00 AM VA-TOBACCO FORMER USER [place] [facility] [place] [facility] Tobacco Use History This section includes a history of the smoking, or tobacco-related health factors, that were collected on or before the date of the Encounter. The data comes from the [place] facility where the Encounter took place. Date/Time Smoking Status/Tobac co Use Comment Facility Mar 06, 2024 09:00 AM VA-TOBACCO QUIT 15 YRS OR MORE [facility] [place] [facility] Mar 31, 2023 11:00 AM VA-TOBACCO FORMER USER [facility] [place] [facility] Mar 31, 2023 11:00 AM VA-TOBACCO QUIT 1 TO < 5 YRS [facility] [place] [facility] Mar 25, 2022 10:30 AM VA-TOBACCO NEVER USED [facility] [place] [facility] Mar 19, 2021 02:00 PM [facility] [place] [facility] Mar 19, 2021 02:00 PM VA-TOBACCO QUIT < 1 YEAR [facility] [place] [facility] Sep 20, 2018 11:24 AM VA-TOBACCO USE DECLINED TO ANSWER [facility] [place] [facility] Oct 21, 2017 08:13 AM QUIT TOBACCO USE IN PAST YEAR [facility] [place] [facility] Dec 30, 2016 08:28 AM QUIT TOBACCO USE 1-7 YEARS AGO [facility] [place] [facility] Jun 04, 2016 08:43 AM QUIT TOBACCO USE 1-7 YEARS AGO [facility] [place] [facility] May 17, 2015 08:45 AM QUIT TOBACCO USE 1-7 YEARS AGO quit 2 years ago. [place] [facility] [place] [facility] Jun 07, 2014 09:25 AM QUIT TOBACCO USE 1-7 YEARS AGO [facility] [place] [facility] November 30, 2013 08:44 AM QUIT TOBACCO USE [facility]ST [facility]AR [facility] May 22, 2013 10:10 AM QUIT TOBACCO USE [facility]ST [facility] [place] December 01, 2012 01:54 PM QUIT TOBACCO USE IN PAST YEAR [facility] Jun 07, 2012 08:16 AM V1-PT DECLINES TOBACCO CESSATION MEDS [facility] Jun 07, 2012 08:16 AM V1-PT THINKING ABOUT QUIT TOBACCO USE [facility] Jan 05, 2012 09:00 AM CURRENT SMOKER intermittenly [facility] [place] [facility] Jan 05, 2012 09:00 AM V1-PT DECLINES REF TO TOBACCO CESS PRGM [facility] Jan 05, 2012 09:00 AM V1-PT DECLINES TOBACCO [facility]ESSATION [facility] [place] Jan 05, 2012 09:00 AM V1-PT THINKING ABOUT QUIT TOBACCO USE [facility] [place] [facility] Feb 17, 2011 09:52 AM V1-PT DECLINES TOBACCO CESSATION MEDS [facility] [place] [facility] Feb 17, 2011 09:52 AM V1-PT THINKING ABOUT [facility]IT [facility]AC[facility] Aug 13, 2010 11:31 AM QUIT TOBACCO USE IN PAST YEAR [facility] Feb 19, 2010 01:26 PM QUIT TOBACCO USE IN PAST YEAR [facility] Sep 13, 2009 11:04 AM QUIT TOBACCO USE IN PAST YEAR [facility] Feb 05, 2009 08:29 AM V1-PT DECLINES REF TO TOBACCO CESS [facility] Feb 05, 2009 08:29 AM V1-PT [...] Encounter Note(s) Provider Source Jun 15, 2024 02:34 PM TELEPHONE ENCOUNTE R NOTE: LOCAL TITLE: TELEPHONE NOTE/SPECIALTY CLINIC STANDARD TITLE: TELEPHONE ENCOUNTER NOTE DATE OF NOTE: JUN 15, 2024@14:34 ENTRY DATE: JUN 15, 2024@14:34:24 AUTHOR: BEULAH LOPEZ EXP COSIGNER: URGENCY: STATUS: COMPLETED TELEPHONE NOTE/SPECIALTY CLINIC Has ADDENDA vet called to cx appt 06/20/24 and is asking for refill of oxycodone and would like to belt picker in [place].Vet r/s appt to 06/29/[address] Tavera She is going to run out Wednesday. Please advise phone # [phone] /divya/ BEULAH LOPEZ ADVANCED MEDICATION COORDINATOR Signed: 06/15/2024 14:38 Receipt Acknowledged By: 06/15/2024 14:44 /divya/ Gal Tavera MD STAFF PHYSICIAN 06/15/2024 ADDENDUM STATUS: COMPLETED vet would like to belt picker Wednesday06/16/2024 in [place] /isabella LOPEZ ADVANCED MEDICATION COORDINATOR Signed: 06/15/2024 14:39 06/15/2024 ADDENDUM STATUS: COMPLETED med ordered. /divya/ Gal Tavera MD STAFF PHYSICIAN Signed: 06/15/2024 14:46 06/15/2024 ADDENDUM STATUS: COMPLETED Industrial Psychology Professor LVM to let vet know med ordered and can belt picker 06/16/2024 /isabella LOPEZ ADVANCED MEDICATION COORDINATOR Signed: 06/15/2024 15:15 [facility]
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
--- OUTSIDE RECORDS SUMMARY | 2024-07-05 03:53 | XMS_ITS | Encounter Summary ---
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 [facility] [place] Address [address] [place] [id number] Care Team Providers Care Rouge Miller Name Role Phone ROMANA CASTILLO Primary Care [...] Garcia's Name Patient's Relationship to Policy Garcia [facility] (MEDICAID) MEDICAID [facility] May 14, 2009 [id number] SAMPLE,ROCCO MOORE PATIENT [facility] MEDICAID [facility]UMAN [facility] May 14, 2009 [id number] SAMPLE,ROCCO MOORE PATIENT MEDICAID MEDICAID [facility] [place] Jul 26, 2018 MEDICAI D [id number] SAMPLE,ROCCO MOORE PATIENT MEDICARE (WNR) MEDICARE (M) PART A November 24, 2015 PART A [id number] SAMPLE,ROCCO MOORE PATIENT MEDICARE (WNR) MEDICARE (M) PART B November 24, 2015 PART B [id number] ROCCO QUEZADA PATIENT Selected Encounter This section includes the information on record at [place] for the Encounter. Date/Time Encounter Type Encounter Description Reason Pro vider Source May 19, 2024 12:00 AM Outpatient Encounter EVENT (HISTORICAL) [...] 2024 11:30 AM AMBULATORY - [facility] Jul 13, 2024 10:00 AM AMBULATORY MEDICINE [facility] Aug 24, 2024 11:00 AM [facility]ULAT[facility] Lab Results: +/- 30 days [...] May 16, 2024 01:45 PM Reporting [facility]: [facility] SystemsUSEMAIMON[facility] [address] [address] Performing Lab: [facility] [address] [address] METHADONE SCREEN None detected(Nega tive) L Negative May 16, 2024 04:03 PM [facility] ALCOHOL, ETHYL URINE PANEL Specimen Type: [...] 16, 2024 01:45 PM Reporting Lab: [address] [address] Performing Lab: [address] [address] ALCOHOL, ETHYL URINE NONE-DETECTED mg/dL NONE-DETEC DIRK, [...] 16, 2024 01:45 PM Reporting Lab: [address] [address] Performing Lab: [address] [address] AMPHETAMINES SCREEN NONE-DETECTED None-Detec dirk, Cutoff = [...] 16, 2024 01:45 PM Reporting Lab: [address] [address] Performing Lab: [address] [address] FENTANYL SCREEN NONE-DETECTE D ng/mL Negative: Cutoff [...] 16, 2024 01:45 PM Reporting Lab: [address] [address] Performing Lab: [address] [address] BENZODIAZEPINES SCREEN POSITIVE HH None-Detec dirk, Cutoff [...] 16, 2024 01:45 PM Reporting Lab: [address] [address] Performing Lab: [address] [address] CANNABINOIDS SCREEN NONE-DETECTED None-Detec dirk,Cutoff = 50 [...] 16, 2024 01:45 PM Reporting Lab: [address] [address] Performing Lab: [address] [address] OPIATES SCREEN POSITIVE HH None- Detec dirk, [...] 16, 2024 01:45 PM Reporting Lab: [address] [address] Performing Lab: [address] [address] BUPRENORPHINE (URINE) POSITIVE HH None Detected, Cutoff [...] 16, 2024 01:45 PM Reporting Lab: [address] [address] Performing Lab: [address] [address] COCAINE SCREEN NONE-DETECTED N one-Detec dirk,Cutoff = [...] 16, 2024 01:45 PM Reporting Lab: [address] [address] Performing Lab: [address] [address] OXYCODONE SCREEN POSITIVE HH Non e-Detec dirk, [...] place. Date/Time Current Smoking Status Comment [facility] kam Mar 06, 2024 09:00 AM [place]-TO[place] QUIT 15 YRS OR MORE [facility] Tobacco Use History This section includes a history of the smoking, or tobacco-related health factors, that were collected on or before the date of the Encounter. The data comes from the [place] facility where the Encounter took place. Date/Time Smoking Status/Tobac co Use Comment [facility] Mar 06, 2024 09:00 AM [place]-TO[place] QUIT 15 YRS OR MORE [facility] Mar 31, 2023 11:00 AM [place]-TO[place]AC[place] FORMER USER [facility] Mar 31, 2023 11:00 AM [place]-TO[place]ACCO QUIT 1 TO < 5 YRS [place] [facility] [place] [facility] Mar 25, 2022 10:30 AM [facility]AC[facility] [place] [facility] Mar 19, 2021 02:00 PM VA-TOBACCO FORMER USER [place] [facility] [facility] [place] [facility] Mar 19, 2021 02:00 PM VA-TOBACCO QUIT < 1 YEAR [facility] [place] [facility] Sep 20, 2018 11:24 AM VA-TOBACCO USE DECLINED TO ANSWER [facility] [place] [facility] Oct 21, 2017 08:13 AM QUIT TOBACCO USE IN PAST YEAR [place] [facility] [facility] [place] [facility] Dec 30, 2016 08:28 AM QUIT TOBACCO USE 1-7 YEARS AGO [place] [facility] [facility] [place] [facility] Jun 04, 2016 08:43 AM QUIT TOBACCO USE 1-7 YEARS AGO [facility] [place] [facility] May 17, 2015 08:45 AM QUIT TOBACCO USE 1-7 YEARS AGO quit 2 years ago. [facility] [place] [facility] Jun 07, 2014 09:25 AM QUIT TOBACCO USE 1-7 YEARS AGO [place] [facility] [facility] [place] [facility] November 30, 2013 08:44 AM QUIT TOBACCO USE IN PAST [facility]AR [facility] [place] [facility] May 22, 2013 10:10 AM QUIT TOBACCO USE IN PAST [facility]AR [facility] [place] [facility] December 01, 2012 01:54 PM QUIT TOBACCO USE IN PAST YEAR [facility] [place] [facility] Jun 07, 2012 08:16 AM V1-PT DECLINES TOBACCO CESSATION MEDS [facility] [place] [facility] Jun 07, 2012 08:16 AM V1-PT THINKING ABOUT QUIT TOBACCO USE [facility] [place] [facility] Jan 05, 2012 09:00 AM CURRENT SMOKER intermittenly [facility] [place] [facility] Jan 05, 2012 09:00 AM V1-PT DECLINES REF TO TOBACCO CESS PRGM [facility] [place] [facility] Jan 05, 2012 09:00 AM V1-PT DECLINES TOBACCO CESSATION MEDS [facility] [place] [facility] Jan 05, 2012 09:00 AM V1-PT THINKING ABOUT QUIT TOBACCO USE [facility] Feb 17, 2011 09:52 AM V1-PT DECLINES TOBACCO CESSATION MEDS [facility]Z [facility] Feb 17, 2011 09:52 AM V1-PT THINKING ABOUT QUIT TOBACCO USE [facility] Aug 13, 2010 11:31 AM QUIT TOBACCO USE IN PAST YEAR [facility] Feb 19, 2010 01:26 PM QUIT TOBACCO USE IN PAST YEAR [facility] Sep 13, 2009 11:04 AM QUIT TOBACCO USE IN PAST YEAR [facility] Feb 05, 2009 08:29 AM V1-PT DECLINES REF TO TOBACCO CESS PRGM [facility] Feb 05, 2009 08:29 AM V1-PT DECLINES TOBACCO CESSATION MEDS [facility] Feb 05, 2009 08:29 AM V1-PT THINKING ABOUT QUIT TOBACCO USE [facility] Aug 22, 2008 09:04 AM QUIT TOBACCO USE IN PAST YEAR [facility] Mar 12, 2008 10:40 AM V1-PT DECLINES REF TO TOBACCO CESS PRGM [facility] Mar 12, 2008 10:40 AM V1-PT DECLINES TOBACCO CESSATION MEDS [facility] Mar 12, 2008 10:40 AM V1-PT NOT INTERESTED IN QUIT TOBACCO USE [facility] Mar 08, 2008 09:37 AM CURRENT SMOKER smokes one pack a day for about 10 years ago. [facility] Encounter Notes: All associated encounter notes This section contains the clinical notes associated to the Encounter. Date/Time Encounter Note(s) Provider Source May 19, 2024 12:00 AM NONVA NOTE: LOCAL TITLE: NON-[facility] STANDARD TITLE: NONVA NOTE DATE OF NOTE: MAY 19, 2024 ENTRY DATE: JUN 19, 2024@11:21:32 AUTHOR: PHYLLIS RIDER EXP COSIGNER: URGENCY: STATUS: COMPLETED VistA Imaging - Scanned Document SCANNED DOCUMENT SIGNATURE NOT REQUIRED Electronically Filed: 06/19/2024 by: PHYLLIS TINOCO CN[facility]L [facility]
--- OUTSIDE RECORDS SUMMARY | 2024-07-05 03:54 | XMS_ITS ---
Author Organization [facility] Address [address] [place] [address] Care Team Providers Care Network Control Technician Name Role Phone Lyndsey ORDAZ, Gal Primary Care Provider Unavail able Ritchie Werner Unavailable [phone] Rowan Nettles Unavailable [phone] Encounters Encounter Location Date Provider Diagnosis [facility] [address] [place] [address] 02/24/2023 Rowan Nettles Plan Of Treatment No Information Progress Notes * Maggie CHAUDHARYOB:[birth year] (64 yo F)Acc No.[id number]:02/24/2023 Progress Notes Patient:?Brianne CHAUDHARY Provider:?Rowan Nettles DPM :1960???Age:63 Y???Sex:Female D ate:02/24/2023 Address: [address] [place], [place] Pcp:Gal Solorio MD Subjective: * Chief Complaints: * ??? * Medical History:? Objective: * Vitals:? Assessment: Plan: * Treatment: * Images: * The named appointment provid er may or may not be the originator of this progress note, and it is not deemed complete until electronically signed by the appointment provider. Sign off status: Pending * Provider:?Rowan Nettles DPM Date:?08/2022 Generated for Edwini barry/Ernie/eTransmitting on:?07/05/2024 03:54 AM EST
--- OUTSIDE RECORDS SUMMARY | 2024-07-05 03:54 | XMS_ITS ---
Author Organization [facility] Hillary angelo Caldwell Address [address] [place] [address] Care Team Providers Care Buyer Liaison Name Role Phone Gal Solorio MD Primary Care Provider Unavail Ritchie Harrington Unavailable [phone] REASON FOR VISIT RS MANAGER DIGITAL appt Encounters En[facility] [place] [address] [place] [id number] 02/22/2023 Ritchie Werner Plan Of Treatment No Information Progress Notes * Joann CHAUDHARYDOB:1960 ( 63 yo F)Acc No.[id number]:02/22/2023 Patient:?Joann Chaudhary :1960???Age:63 Y???Sex:Female Address:[address] [place], [address] * true * Date:? Generated for Denys reddy/Ernie/eTransmitting on:?07/05/2024 03:54 AM EST
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
== END 2024-06-29 13:35 | disposition home or self-care (01) ==
LOC: HO.HMGCLDS 13:34
PROVIDERS: PCP Internal Medicine; Visit Provider Internal Medicine
DX: E87.5 Hyperkalemia (principal); I50.33 Acute on chronic diastolic (congestive) heart failure; J96.11 Chronic respiratory failure with hypoxia; I48.0 Paroxysmal atrial fibrillation; E66.2 Morbid (severe) obesity with alveolar hypoventilation; Z68.42 Body mass index [BMI] 45.0-49.9, adult; N18.30 Chronic kidney disease, stage 3 unspecified; F11.99 Opioid use, unspecified with unspecified opioid-induced disorder
CPT/HCPCS: 36415; 80048; 99212

== ENCOUNTER 2024-06-29 13:34 | Outpatient (AMB) | payer MEDICARE, MEDICAID, SELFPAY ==
[2024-06-29 13:38] VITALS: BP 112/58; PULSE 68; O2SAT 93
--- NOTE | 2024-06-29 13:38 | MHC.PC.OV ---
Vital Signs 06/29/24 13:38 Height 5 ft 1 in BMI Reason not done Patient refused/unable BP 112/58 L Blood Pressure Location Lt brachial Position Sitting Pulse 68 Pulse Source Pulse Oximeter Pulse Oximetry (%) 93 Oxygen Delivery Method Nasal Cannula Intake Visit Reasons: 1 month follow up visit Intake Note: Pt is here today for 1 month follow up visit. Allergies gabapentin Allergy (Mild, Verified 06/29/24 13:46) Anxiety morphine [MORPHINE] Allergy (Unknown, Verified 06/29/24 13:46) ANAPHALAXIS, anaphylaxis propofol [From Diprivan] Allergy (Verified 06/29/24 13:46) Anaphylaxis Medication List - Last Reconciled 06/29/24 by Sandra Diego MD buprenorphine HCl 4 mg sublingual QID PRN cholecalciferol (vitamin D3) 50 mcg PO DAILY clonazepam 0.5 mg PO BID PRN diltiazem HCl ER 240 mg PO DAILY izamdqnvkyu-tuvgqhjax-hzejowrn 100-62.5-25 mcg (Trelegy Ellipta) 1 ea inhalation DAILY furosemide 20 mg PO BID omeprazole 20 mg PO DAILY oxycodone 5 mg PO Q8H PRN sodium zirconium cyclosilicate (Lokelma) 10 grams PO DAILY temazepam 30 mg PO BEDTIME theophylline ER (Roque-24) 400 mg PO DAILY Tobacco use date assessed: 06/29/24 Dental Screening Dental Screen Date: 05/26/24 HPI 1 month follow up visit HPI Details Patient presents for the follow-up of oxygen-dependent COPD, chronic kidney disease stage 3, chronic hyperkalemia, paroxysmal AFib hypertension, chronic right thigh ulcer managed by wound care. [facility] Medical History (Updated 06/29/24 @ 14:25 by Sandra Diego MD) VERN (acute kidney injury) COPD (chronic obstructive pulmonary disease) Enterococcus faecalis infection MSSA (methicillin susceptible Staphylococcus aureus) MRSA (methicillin resistant staph aureus) culture positive Encounter for management of wound VAC Chronic osteomyelitis Hypertension Iron deficiency anemia COPD (chronic obstructive pulmonary disease) Femur fracture Crohn's colitis Morbid obesity due to excess calories Closed tibia fracture Acute on chronic respiratory failure with hypoxia and hypercapnia Nonrheumatic mitral (valve) stenosis Paroxysmal atrial fibrillation Dyspnea Hypoventilation associated with obesity Pickwickian syndrome Chronic hypercapnic respiratory failure Opioid use disorder Surgical History Hx of cholecystectomy History of open reduction and internal fixation (ORIF) procedure Status post open reduction and internal fixation (ORIF) of fracture Recent surgical procedure on lower extremity Family History Other Adopted Social History Household Members: Family Household Members Other:: , Hoa. Daughter Carolyn, 21. Daughter's Boyfriend, 22. Neice, 21 Housing: House Do you presently have visiting nurse or other home services: Yes Alcohol intake: never Patient Tobacco Use Status: Former Tobacco user Years Smoked: 25 e-Cigarette/Vaping Use: Never Used Second Hand Smoke Exposure: No Advance Directives Date on File: 12/16/20 service: Yes Current occupational status: disabled Cognitive needs: No Hearing needs: No Vision needs: Yes Questionnaire Thrive Questionnaire Date Thrive assessed: 05/26/24 I am a: Patient What is your living situation today?: I choose not to answer this question Within the past 12 months, did the food you bought not last and you didn't have the money to get more?: I choose not to answer this question Within the past 12 months, did you worry whether your food would run out before you got money to buy more?: I choose not to answer this question Do you have trouble paying for medicines?: I choose not to answer this question Do you have trouble getting transportation to medical appointments?: I choose not to answer this question Do you have trouble paying your heating and electricity bill?: I choose not to answer this question Do you have trouble taking care of your child, family member or friend?: I choose not to answer this question Do you have trouble with day-to-day activities such as bathing, preparing meals, shopping, managing finances, etc.?: I choose not to answer this question Are you currently unemployed and looking for a job?: I choose not to answer this question Are you interested in more education?: I choose not to answer this question Please select the resources that you would like help with: None Currently or been in a relationship where the following occur: I choose not to answer THRIVE Score: 0 AUDIT C Alcohol Use Questionnaire (AUDIT-C) 1. How often do you have a drink containing alcohol?: Never Total Score: 0 GRETA-7 AMB Questionnaire GRETA-7 Date GRETA - 7 assessed: 06/29/24 Feeling nervous, anxious, or on edge: 0 = Not at all Not being able to stop or control worryin = Not at all Worrying too much about different things: 0 = Not at all Trouble relaxin = Not at all Being so restless that it is hard to sit still: 0 = Not at all Becoming easily annoyed or irritable: 0 = Not at all Feeling afraid as if something awful might happen: 0 = Not at all Total GRETA-7 score (0-4 normal; 5-9 mild; 10-14 moderate; 15-21 severe): 0 Source: Developed by Drs. Brady Stoner, Lara Cook, Juan Diego Noriega and colleagues, with an educational andra from [employer]. Review of Systems Const All systems reviewed & are unremarkable except as noted in HPI and below Eyes Reports no additional complaints ENT Reports no additional complaints Card Reports no additional complaints Resp Reports no additional complaints GI Reports no additional complaints Reports no additional complaints Physical exam (Primary Care) Vital Signs: Last Vital Signs Pulse 68 06/29/24 13:38 BP 112/58 L 06/29/24 13:38 Pulse Ox 93 06/29/24 13:38 Oxygen Delivery Method Nasal Cannula 06/29/24 13:38 Tobacco/Smoking Status: Tobacco use Status Tobacco use date assessed 06/29/24 06/29/24 13:50 Patient Tobacco Use Status Former Tobacco user 06/29/24 13:38 e-Cigarette/Vaping Use Never Used 06/29/24 13:38 Thrive Assessment: Date of Thrive Assessment Date Thrive assessed 05/26/24 06/29/24 13:38 Currently or been in a relationship where the following occur: I choose not to answer Const General: no acute distress HENMT Head: Yes normal to inspection Resp Effort & Inspection: normal respiratory effort Auscultation: clear to auscultation bilaterally Cardio Rhythm: regular rhythm Heart sounds: S1 normal heart sound present and S2 normal heart sound present GI Inspection: Yes normal to inspection Palpation (GI): Soft to palpation Percussion: Yes normal to percussion Auscultation: normal bowel sounds Coding Level of Care Code Est Pt Level 5 (85599) Complex EM visit Add On G2211 Diagnoses Hyperkalemia E87.5 Acute on chronic heart failure with preserved ejection fraction (HFpEF) I50.33 Chronic hypoxic respiratory failure J96.11 Paroxysmal atrial fibrillation I48.0 Class 3 obesity with alveolar hypoventilation, serious comorbidity, and body mass index (BMI) of 45.0 to 49.9 in adult E66.2; Z68.42 Obesity classification: adult class 3 (BMI >= 40) Serious obesity comorbidity presence: with serious comorbidity Body mass index: BMI 45.0-49.9 Chronic kidney disease, stage 3 N18.30 Opioid use disorder F11.99 Assessment & Plan Assessment & Plan (1) Hyperkalemia: Code(s): E87.5 - Hyperkalemia Category: Medical Plan: Check basic metabolic panel today continue Lokelma twice a week (2) Acute on chronic heart failure with preserved ejection fraction (HFpEF): Comment: Echo 03/2024 nl EF, mild , SEVERE PULMONARY HYPERTENSION Code(s): I50.33 - Acute on chronic diastolic (congestive) heart failure Category: Medical Plan: Continue furosemide and diltiazem for AFib rate control (3) Chronic hypoxic respiratory failure: Comment: Secondary to morbid obesity, hypoventilation, COPD Code(s): J96.11 - Chronic respiratory failure with hypoxia Category: Medical Plan: Continue Trelegy, supplemental O2 and theophylline follow-up with pulmonology (4) Paroxysmal atrial fibrillation: Comment: 1 episode 2021, developed leg hematoma on anticoagulation Code(s): I48.0 - Paroxysmal atrial fibrillation Category: Medical Plan: On Cardizem (5) Hypoventilation associated with obesity: Code(s): E66.2 - Morbid (severe) obesity with alveolar hypoventilation Category: Medical Qualifiers: Obesity classification: adult class 3 (BMI >= 40) Serious obesity comorbidity presence: with serious comorbidity Body mass index: BMI 45.0-49.9 Qualified Code(s): E66.2 - Morbid (severe) obesity with alveolar hypoventilation; Z68.42 - Body mass index [BMI] 45.0-49.9, adult Plan: Weight loss discussed with the patient follow-up with dispatcher chief oil for pulmonary hypertension secondary to morbid obesity and hypoventilation (6) Chronic kidney disease, stage 3: Code(s): N18.30 - Chronic kidney disease, stage 3 unspecified Category: Medical Plan: Monitor renal function avoid nephrotoxins (7) Opioid use disorder: Comment: [facility], on [facility]ing dose of oxycodone Code(s): F11.99 - Opioid use, unspecified with unspecified opioid-induced disorder Category: Medical Plan: [facility] follows [facility] with [facility] Orders: Orders Basic Metabolic Panel Today E87.5 - Hyperkalemia
== END 2024-06-29 14:26 | disposition home or self-care (01) ==
PROVIDERS: PCP Internal Medicine; Visit Provider Internal Medicine
DX: I50.33 Acute on chronic diastolic (congestive) heart failure (principal); J96.11 Chronic respiratory failure with hypoxia; E66.2 Morbid (severe) obesity with alveolar hypoventilation; Z68.42 Body mass index [BMI] 45.0-49.9, adult; I48.0 Paroxysmal atrial fibrillation; E87.5 Hyperkalemia; N18.30 Chronic kidney disease, stage 3 unspecified; F11.99 Opioid use, unspecified with unspecified opioid-induced disorder

== ENCOUNTER 2024-07-25 11:21 | Outpatient (AMB) | payer MEDICARE, MEDICAID, SELFPAY ==
--- OUTSIDE RECORDS SUMMARY | 2024-07-25 11:24 | XMS_ITS | Continuity of Care Document ---
Author Name [facility] Organization [facility] Care Team Providers Care Risk Mgr Name Role Phone [facility] Unavailable Unavailable Problems Combined list of problems from Department of Defense and Veterans Affairs facilities. It does not include entries that were removed or entered in error. Problem Status Onset Date Problem Type Date of Resolution Comments Source AF- Atrial Fibrillation ([facility] 76430186) Active Condition Jan 26, 2024 Entered By: [...] [facility] Hypertension (SNOMED CT 52375212) Active Condition [facility] Hysterectomy Active Condition Jan 03, 2009 Entered By: WENDY MADSEN Comment: -- 1994 in [place] for endometriosis, comp ov cyst [facility] [...] Long-term current use of anticoagulant Active Condition [place] Microalbuminuria Active Condition Mar 06, 2024 Entered By: IRENE CASTILLO Comment: no diabetes/longsta nding HTN- 2023 [facility] Microscopic hematuria Active Condition Apr 16, 2014 Entered By: WENDY MADSEN Comment: noted 03/08 [facility] Myocardial infarction Active Condition May 05, 2022 Entered By: WENDY MADSEN Comment: -- acute NSTEMI 05/03/22 [facility] Obesity Active Condition [facility] Opioid dependence (SNOMED CT 52152638) Active Condition Jun 27, 2018 Entered By: TAMRA STRAUSS Comment: Suboxone in community [facility] [place] [facility] Osteoarthritis of knee Active Condition Oct 25, 2014 Entered By: WENDY MADSEN Comment: -- steroid injection to left knee 10/07 Dr. Singleton [facility] Osteomyelitis of right [...] By: IRENE CASTILLO Comment: on U/S at [facility]. repeat Aug 2024 / vet wants to plan this thru community PCP [facility] Sleep apnea (SNOMED CT 05699764) Active Condition Aug 18, 2016 Entered By: WENDY MADSEN Comment: -- treated with CPAP, needs clonazepam to tolerate it [facility] Tobacco dependence, continuous (SNOMED CT 461400576) Active Condition Aug 11, 2017 Entered By: LONG VARELA Comment: persists to smoke - 08/08/2017 admitted at [facility] with COPD exacerbation [facility] Varicose Veins (ICD-9-CM 454.9) Active Condition [facility] Acute bronchitis Inactive Condition 08/06/2008 Se p 24, 2007 Entered By: WENDY MADSEN Comment: exacerbation 04/02 [facility] [place] [facility] Acute exacerbation of chronic obstructive airways disease Inactive Condition 02/24/2018 Aug 11, 2017 Entered By: LONG VARELA Comment: 08/05/17 through 08/08/17 admitted at [facility] for exacerbation. Still smoking [facility] Ankle: arthralgia * (ICD-9-CM 719.47) Inactive Condition 08/18/2016 [facility] [place] [facility] Asthma (SNOMED CT 427031800) Inactive Condition 02/24/2018 Apr 19, 2008 Entered By: WENDY MADSEN Comment: intermittent with severe exacerbations [facility] [place] [facility] Candidiasis, Oral Inactive Condition 02/24/2018 [facility] [place] [facility] Contact dermatitis due to plants Inactive Condition 08/18/2016 [facility] Counseling on Substance Use and Abuse (ICD-9-CM V65.42) Inactive Condition 08/06/2008 [facility] [place] [facility] Derangement of meniscus Inactive Condition 08/18/2016 Oct 25, 2014 Entered By: WENDY MADSEN Comment: -- left knee torn medial meniscus 09/09 [facility] [place] [facility] Dyspnea Inactive Condition 02/24/2018 Aug 11, 2 018 Entered By: LONG VARELA Comment: admit 08/05/17 -08/08/17 at [facility]: COPD exacerbation , CHo also showed than mild pulmonary HTN , so question of a degree of cor pulmonale though had NL LVF , mild R cadiac chamber [facility] Edema * (ICD-9-CM 782.3) Inactive Condition 02/24/2018 [facility] [place] [facility] Encounter for Vocational Therapy (ICD-9-CM V57.22) Inactive Condition 01/03/2009 [facility] Hyperglycemia Inactive Condition 06/27/2018 Apr 262016 Entered By: LONG VARELA Comment: 6.8% [facility] February 2017 .Patient prefesr to recheck her l [facility] [place] [facility] Hypovolemia Inactive Condition 02/24/2018 Aug 11, 2017 Entered By: LONG VARELA Comment: 08/05/2017 -admitted to [facility] as self increased her lasix to 320 mg /day - when she had COPD exacerbation- seftreated as volume overload [facility] [facility] Hypoxemia Inactive Condition 03/22/2018 May 20, 2 017 Entered By: LONG VARELA Comment: 05/20/2017 walking 73% and rest O2 85% at [facility] . [facility] Obesity (SNOMED CT 793373315) Inactive Condition 06/27/2018 [facility] [place] [...] and observation for oth reasons Active Diagnosis [place] Diagnosis: ICD-10-CM E66.9 Obesity, unspecified Active Diagnosis [...] ATORY (INHAL ATION) ACTIVE GARDUNO,AL ICE 2022 [facility] APIXABAN 5MG TAB TAKE ONE TABLET BY MOUTH EVERY 12 HOURS FOR PREVENTI ON OF BLOOD CLOTS ORAL DISCONT INUED BY PROVIDE R 04/05/2024 [id number] FAY[facility] FLOOD 2022 [facility] ATORVASTATI N CA 80MG TAB TAKE ONE TABLET BY MOUTH ONCE DAILY FOR CHOLESTE ROL ORAL ACTIVE 08/26/2024 [id number] FAYE FLOOD 2023 90 [facility] AT[facility] N CA 80MG TAB TAKE ONE TABLET BY MOUTH ONCE DAILY FOR CHOLESTE ROL ORAL DISCONT INUED (EDIT) 09/17/2023 [id number] 4 SORAIDA MADSEN LLIACass S 2023 30 [facility] BUPRENORPHI NE HCL 2MG TAB,SUBLING UAL DISSOLVE TWO TABLETS UNDER THE TONGUE FOUR TIMES A DAY SUBLIN GUAL ACTIVE 11/25/2024 [id number] 4 SORAIDA MADSEN LLIAM S 2023 240 [facility] BUPRENORPHI NE HCL 2MG TAB,SUBLING UAL DISSOLVE TWO TABLETS UNDER THE TONGUE FOUR TIMES A DAY SUBLIN GUAL DISCONT INUED 05/19/2024 [id number] 4 SORAIDA MADSEN LLIAM S 2023 240 [facility] BUPREN[place]PHI NE HCL 2MG TAB,SUBLING UAL DISSOLVE ONE TABLET UNDER THE TONGUE FOUR TIMES A DAY SUBLIN GUAL DISCONT INUED (EDIT) 12/25/2023 [id number] 4 SORAIDA MADSEN LLIAM S 2022 120 [facility] BUPRENORPHI NE HCL 2MG TAB,SUBLING UAL DISSOLVE ONE TABLET UNDER THE TONGUE THREE TIMES A DAY SUBLIN GUAL DISCONT INUED (EDIT) 08/21/2023 [id number] 3 SORAIDA MADSEN LLIAM S 2022 90 [facility] CHOLECALCIF LEVI 10MCG (400UNIT) TAB TAKE ONE TABLET BY MOUTH ONCE DAILY FOR VITAMIN D DEFICIEN CY ORAL 01/04/2024 [id number] 4 SORAIDA MADSEN LLIAM S 2023 90 [facility] CHOLECALCIF LEVI 50MCG (2,000UNIT) TAB TAKE ONE TABLET BY MOUTH ONCE DAILY FOR VITAMIN SUPPLEME NTATION ORAL ACTIVE 03/07/2025 [id number] 4 FAYE FLOOD 2023 100 [facility] CLONAZEPAM 0.5MG TAB TAKE TWO TABLETS BY MOUTH ONCE DAILY AND TAKE ONE TABLET TWICE DAILY NEEDED ANXIETY ORAL ACTIVE 11/15/2024 [id number] 4 JAMIE HAWKINS MD 2023 120 [facility] CLONAZEPAM 0.5MG TAB TAKE TWO TABLETS BY MOUTH ONCE DAILY AND TAKE ONE TABLET TWICE DAILY NEEDED ORAL DISCONT INUED (EDIT) 10/14/2024 [id number] 4 JAMIE HAWKINS MD 2023 120 [facility] CLONAZEPAM 0.5MG TAB TAKE TWO TABLETS BY MOUTH ONCE DAILY AND TAKE ONE TABLET TWICE DAILY NEEDED ORAL DISCONT INUED (EDIT) 08/16/2024 [id number] 4 JAMIE HAWKINS MD 2023 120 [facility] CLONAZEPAM 0.5MG TAB TAKE TWO TABLETS BY MOUTH ONCE DAILY AND TAKE ONE TABLET TWICE DAILY NEEDED FOR ANXIETY ORAL DISCONT INUED (EDIT) 07/05/2024 [id number] 4 JAMIE HAWKINS MD 2023 120 [facility] CLONAZEPAM 0.5MG TAB TAKE TWO TABLETS BY MOUTH ONCE DAILY AND TAKE ONE TABLET TWICE DAILY NEEDED FOR ANXIETY ([facility] - NEXT FILL 01/20/24) ORAL DISCONT INUED (EDIT) 01/15/2024 [id number] 4 JAMIE HAWKINS MD 2023 28 [facility] CLONAZEPAM 0.5MG TAB TAKE ONE TABLET BY MOUTH EVERY MORNING AND TAKE ONE-HALF TABLET TWICE DAILY NEEDED FOR ANXIETY ORAL DISCONT INUED 04/08/2024 [id number] 4 JAMIE HAWKINS MD 2023 60 [facility] CLONAZEPAM 0.5MG TAB TAKE ONE TABLET BY MOUTH EVERY MORNING AND TAKE ONE-HALF TABLET TWICE DAILY NEEDED ANXIETY ORAL DISCONT INUED (EDIT) 02/05/2024 [id number] 4 JAMIE HAWKINS MD 2023 60 [facility] CLONAZEPAM 0.5MG TAB TAKE ONE TABLET BY MOUTH EVERY MORNING AND TAKE ONE-HALF TABLET TWICE DAILY NEEDED ORAL DISCONT INUED (EDIT) 01/01/2024 [id number] JAMIE HAWKINS MD 2022 28 [facility] CLONAZEPAM 0.5MG TAB TAKE ONE TABLET BY MOUTH EVERY MORNING AND TAKE ONE-HALF TABLET TWICE DAILY NEEDED ORAL DISCONT INUED (EDIT) 12/15/2023 [id number] 3 JAMIE HAWKINS MD 2022 60 [facility] CLONAZEPAM 0.5MG TAB TAKE ONE TABLET BY MOUTH EVERY MORNING AND TAKE ONE-HALF TABLET TWICE DAILY NEEDED ORAL DISCONT INUED (EDIT) 10/01/2023 [id number] 3 JAMIE HAWKINS MD 2022 60 [facility] CLONAZEPAM 1MG TAB TAKE ONE TABLET BY MOUTH TWICE DAILY ORAL 05/13/2024 [id number] FAYE FLOOD 2023 6 [facility] DILTIAZEM (EQV-TIAZAC AB4) 180MG 24HR CAP TAKE ONE CAPSULE BY MOUTH ONCE DAILY ORAL DISCONT INUED (EDIT) 08/12/2024 [id number] 4 FAYE FLOOD 2023 90 [facility] DILTIAZEM (EQV-TIAZAC AB4) 180MG 24HR CAP TAKE ONE CAPSULE BY MOUTH ONCE DAILY ORAL DISCONT INUED 08/11/2023 [id number] SORAIDA MADSEN 2022 90 [facility] DILTIAZEM (EQV-TIAZAC AB4) 240MG 24HR CAP TAKE ONE CAPSULE BY MOUTH ONCE DAILY ORAL ACTIVE 09/08/2024 [id number] 4 FAYE FLOOD 2023 90 [facility] DIPHTHERIA TOXOID 2UNT/TETANU S TOXOID 5UNT/0.5ML ADSORBED INJ INJECT 0.5ML INTRAMUS CULARLY NOW INTRAM USCULA R ACTIVE WILLIAM HE 2018 [facility] FERROUS GLUCONATE 324MG TAB TAKE ONE TABLET BY MOUTH ONCE DAILY TO SUPPLEME NT IRON ORAL ACTIVE 03/07/2025 [id number] 4 FAYE FLOOD 2023 100 [facility] HYDROMORPHO NE HCL 2MG TAB TAKE ONE TABLET BY MOUTH TWICE DAILY AND TAKE TWO TABLETS THREE TIMES A DAY FOR PAIN ORAL ACTIVE 08/12/2024 [id number] 4 SORAIDA MADSEN LLIAM S 2023 224 [facility] LISINOPRIL 30MG TAB TAKE TWO TABLETS BY MOUTH ONCE DAILY TO CONTROL BLOOD PRESSURE ORAL ACTIVE 01/17/2025 [id number] 4 FAYE FLOOD 2023 180 [facility] LISINOPRIL 40MG TAB TAKE ONE TABLET BY MOUTH ONCE DAILY TO CONTROL BLOOD PRESSURE ORAL DISCONT INUED (EDIT) 08/26/2024 [id number] 4 FAYE FLOOD 2023 90 [facility] LISINOPRIL 40MG TAB TAKE ONE TABLET BY MOUTH ONCE DAILY TO CONTROL BLOOD PRESSURE ORAL DISCONT INUED (EDIT) 04/15/2024 [id number] JENNY LEZAMA 2022 90 [facility] OMEPRAZOLE 20MG CAP,EC TAKE 1 CAPSULE BY MOUTH ONCE DAILY ORAL ACTIVE SORAIDA MADSENIAM S 2022 [facility] OXYCODONE HCL 10MG/ACETAM INOPHEN 325MG TAB TAKE 1 TABLET BY MOUTH FOUR TIMES DAILY NEEDED FOR PAIN ORAL DISCONT INUED BY PROVIDE R 07/16/2024 [id number] 4 LAURA KHANH B 2023 112 [facility] OXYCODONE HCL 10MG/ACETAM INOPHEN 325MG TAB TAKE 1 TABLET BY MOUTH FOUR TIMES DAILY NEEDED NEXT FILL 07/20 ORAL DISCONT INUED BY PROVIDE R 07/15/2024 [id number] 4 SORAIDA MADSEN LLIAM S 2023 112 [facility] OXYCODONE HCL 10MG/ACETAM INOPHEN 325MG TAB TAKE 1 TABLET BY MOUTH FOUR TIMES DAILY NEEDED FOR PAIN ORAL DISCONT INUED 06/24/2024 [id number] SORAIDA MADSEN LLIAM S 10/31/ 2024 112 [facility] OXYCODONE HCL 10MG/ACETAM INOPHEN 325MG TAB TAKE 1 TABLET BY MOUTH THREE TIMES DAILY NEEDED ORAL DISCONT INUED 06/15/2024 [id number] SORAIDA MADSEN LLIAM S 2023 30 [facility] OXYCODONE HCL 5MG TAB TAKE TWO TABLETS BY MOUTH THREE TIMES DAILY NEEDED FOR PAIN (NEXT FILL 06/09/24 ) ORAL ACTIVE 06/09/2024 [id number] SORAIDA MADSEN LLIAM S 2023 180 [facility] OXYCODONE HCL 5MG TAB TAKE TWO TABLETS BY MOUTH FOUR TIMES DAILY NEEDED FOR PAIN ORAL DISCONT INUED 04/05/2024 [id number] 4 [facility] B 2023 224 [facility] OXYCODONE HCL 5MG TAB TAKE FOUR TABLETS BY MOUTH THREE TIMES DAILY NEEDED FOR PAIN [NEXT FILL 4] ORAL DISCONT INUED (EDIT) 02/03/2024 [id number] SORAIDA MADSEN S 2023 336 [facility] OXYCODONE HCL 5MG TAB TAKE FOUR TABLETS BY MOUTH THREE TIMES DAILY NEEDED FOR PAIN [NEXT FILL 4] ORAL DISCONT INUED 01/06/2024 [id number] SORAIDA MADSEN LLIAM S 2023 336 [facility] OXYCODONE HCL 5MG TAB TAKE FOUR TABLETS BY MOUTH FOUR TIMES DAILY NEEDED FOR PAIN [NEXT FILL 11/05/19 24] ORAL DISCONT INUED 11/05/2023 [id number] 4 SORAIDA MADSEN LLIAM S 2023 448 [facility] OXYCODONE HCL 5MG TAB TAKE FOUR TABLETS BY MOUTH FOUR TIMES DAILY NEEDED FOR PAIN [NEXT FILL 4] ORAL DISCONT INUED 10/22/2023 [id number] EDWINSORAIDA OROZCO LLIAM S 2023 240 [facility] OXYCODONE HCL 5MG TAB TAKE FOUR TABLETS BY MOUTH FOUR TIMES DAILY NEEDED FOR PAIN [NEXT FILL 09/24/2023 ] ORAL DISCONT INUED 10/08/2023 [id number] EDWINSORAIDA OROZCO LLIAM S 2023 240 [facility] OXYCODONE HCL 5MG TAB TAKE TWO TABLETS BY MOUTH FOUR TIMES DAILY NEEDED FOR PAIN [NEXT FILL 09/21/23 ] ORAL DISCONT INUED 09/17/2023 [id number] EDWINSORAIDA OROZCO LLIAM S 2023 224 [facility] OXYCODONE HCL 5MG TAB TAKE TWO TABLETS BY MOUTH FOUR TIMES DAILY NEEDED FOR PAIN [NEXT FILL 08/24/23] ORAL DISCONT INUED 08/26/2023 [id number] 4 CALESORAIDA LLIAM S 2023 224 [facility] OXYCODONE HCL 5MG TAB TAKE TWO TABLETS BY MOUTH FOUR TIMES DAILY NEEDED NEXT FILL 04/17 ORAL 04/29/2024 [id number] 4 [facility]END[facility]AH Viky 2023 112 [facility] OXYCODONE HCL 5MG TAB TAKE TWO TABLETS BY MOUTH FOUR TIMES DAILY NEEDED FOR PAIN [NEXT FILL 03/01/2024 ] ORAL 02/25/2024 [id number] EDWINSORAIDA OROZCO LLIAM S 2023 224 [facility] OXYCODONE HCL 5MG TAB TAKE FOUR TABLETS BY MOUTH THREE TIMES DAILY NEEDED FOR PAIN [NEXT FILL 4] ORAL 12/04/2023 [id number] 4 EDWINSORAIDA OROZCO LLIAM S 2023 336 [facility] OXYCODONE HCL 5MG TAB TAKE TWO TABLETS BY MOUTH FOUR TIMES DAILY NEEDED FOR PAIN [NEXT FILL 07/22/23 ] ORAL 07/24/2023 [id number] CUTLER,WI LLIAM S 2022 224 [facility] OXYCODONE HCL 5MG TAB TAKE TWO TABLETS BY MOUTH FIVE TIMES A DAY FOR PAIN NEXT FILL 06/17/23 ORAL 06/12/2023 [id number] CUTLER,WI LLIAM S 2022 280 [facility] [...] AT BEDTIME NEEDED SLEEP ORAL ACTIVE 11/15/2024 [id number] JAMIE HAWKINS MD 2023 30 [facility] TEMAZEPAM 30MG CAP TAKE ONE CAPSULE BY MOUTH AT BEDTIME NEEDED SLEEP ORAL DISCONT INUED (EDIT) 10/14/2024 [id number] 4 JAMIE HAWKINS MD 2023 30 [facility] TEMAZEPAM 30MG CAP TAKE ONE CAPSULE BY MOUTH AT BEDTIME NEEDED FOR SLEEP ORAL DISCONT INUED (EDIT) 07/05/2024 [id number] 4 JAMIE HAWKINS MD 2023 30 [facility] TEMAZEPAM 30MG CAP TAKE ONE CAPSULE BY MOUTH AT BEDTIME NEEDED FOR SLEEP ORAL DISCONT INUED (EDIT) 04/08/2024 [id number] 4 JAMIE HAWKINS MD 2023 30 [facility] TEMAZEPAM 30MG CAP TAKE ONE CAPSULE BY MOUTH AT BEDTIME NEEDED ORAL DISCONT INUED (EDIT) 10/21/2023 [id number] 4 JAMIE HAWKINS MD 2023 13 [facility] TEMAZEPAM 30MG CAP TAKE ONE CAPSULE BY MOUTH AT BEDTIME NEEDED ORAL DISCONT INUED (EDIT) 12/15/2023 [id number] JAMIE HAWKINS MD 2022 30 [facility] TEMAZEPAM 30MG CAP TAKE ONE CAPSULE BY MOUTH AT BEDTIME NEEDED ORAL DISCONT INUED (EDIT) 10/01/2023 [id number] 3 JAMIE HAWKINS MD 2022 30 [facility] THEOPHYLLIN E 400MG 24HR TAB,SA TAKE ONE TABLET BY MOUTH ONCE DAILY ORAL 03/13/2024 [id number] FAYE FLOOD 2022 90 [facility] UMECLIDINIU M 62.5MCG/MANISH ANTEROL 25MCG/ACTUA T INH,ORAL,30 D INHALE 1 INHALATI ON BY MOUTH ONCE DAILY RESPIR ATORY (INHAL ATION) ACTIVE Evi STRAUSS 2017 [facility] Allergies, Adverse Reactions, Alerts Combined list of allergies from Department of Defense and Veterans Affairs facilities. It does not include entries that were removed or entered in error. Substance Category Reaction Severity Reaction type Status Date Reported Comments Source DULOXETINE Propensity to adverse reactions to drug (finding) Anxiety MODERATE active 3 [facility] GABAPENTIN Propensity to adverse reactions to drug (finding) TARDIVE MYOCLONUS active 1 [facility] MORPHINE Propensity to adverse reactions to drug (finding) Anaphylaxis active 8 [facility] Immunizations Combined list of available immunizations from the Department of Defense and Veterans Affairs facilities. Immunization Series Date Given Administered By Site Reaction Lot Number CVX Code Drug Dial Marker Status Comments Source COVID-19 (MODERNA), MRNA, LNP-S, PF, 50 MCG/0.5 ML (AGES 12+ YEARS) 2023 PRABHU RING HY E RIGHT DELTO ID [id number] 312 complet ed [facility] INFLUENZA, HIGH-DOSE, TRIVALENT, PF 2023 PRABHU RING HY E RIGHT DELTO ID [id number] 135 complet ed [facility] COVID-19 (MODERNA), MRNA, LNP-S, PF, 50 MCG/0.5 ML (AGES 12+ YEARS) 4 2023 OREN CAZARES RIGHT DELTO ID [id number] 312 complet ed [facility] INFLUENZA, INJECTABLE, QUADRIVALENT, PRESERVATIVE FREE 2022 OREN CAZARES RIGHT DELTO ID [id number] A 150 complet ed [facility] COVID-19 (MODERNA), MRNA, LNP-S, PF, 100 MCG OR 50 MCG DOSE 3 2020 207 complet ed MOD; [id number]; 2 [facility] COVID-19 (MODERNA), MRNA, LNP-S, PF, 100 MCG/0.5 ML DOSE 2 2020 207 complet ed [facility] COVID-19 (MODERNA), MRNA, LNP-S, PF, 100 MCG/0.5 ML DOSE 1 2020 207 complet ed MOD; [id number]; 1 [facility] DTAP, UNSPECIFIED FORMULATION 2010 ZACKERY CHANDLER 107 complet ed [facility] [...] May 16, 2024 01:45 PM Reporting Lab: [facility] [place] [address] [address] Performing Lab: [address] [address] [facility] ALCOHOL, ETHYL URINE PANEL PH OF URINE [...] May 16, 2024 01:45 PM Reporting Lab: [facility] [place] [address] [address] Performing Lab: [facility] [address] [facility] ALCOHOL, ETHYL URINE PANEL CREATININE [MASS/VOLU ME] [...] May 16, 2024 01:45 PM Reporting Lab: [facility] [place] [address] [address] Performing Lab: [facility] [place] [facility] [address] [facility] [address] [facility] [facility] ALCOHOL, ETHYL URINE PANEL SPECIFIC GRAVITY OF [...] May 16, 2024 01:45 PM Reporting Lab: [facility] [place] [address] [address] Performing Lab: [facility] [place] [address] [address] [facility] [place] [facility] AMPHETAM MICHELE SCREEN PANEL AMPHETAMIN ES [PRESENCE] [...] May 16, 2024 01:45 PM Reporting Lab: [facility] [place] [address] [address] Performing Lab: [facility] [place] [address] [address] [facility] [place] [facility] AMPHETAM MICHELE SCREEN PANEL PH OF URINE [...] May 16, 2024 01:45 PM Reporting Lab: [address] [address] Performing Lab: [address] [address] [facility] AMPHETAM MICHELE SCREEN PANEL CREATININE [MASS/VOLU ME] [...] May 16, 2024 01:45 PM Reporting Lab: [facility] [address] [address] Performing Lab: [facility] [address] [facility] AMPHETAM MICHELE SCREEN PANEL SPECIFIC GRAVITY OF [...] May 16, 2024 01:45 PM Reporting Lab: [facility] [address] [address] Performing Lab: [facility] [address] [facility] BENZODIA ZEPINES SCREEN PANEL BENZODIAZE PINES [PRESENCE] [...] May 16, 2024 01:45 PM Reporting Lab: [facility] [address] Performing Lab: [facility] [address] [address] [facility] BENZODIA ZEPINES SCREEN PANEL PH OF URINE [...] May 16, 2024 01:45 PM Reporting Lab: [facility] [address] Performing Lab: [address] [address] [facility] BENZODIA ZEPINES SCREEN PANEL CREATININE [MASS/VOLU ME] [...] May 16, 2024 01:45 PM Reporting Lab: [address] [address] Performing Lab: [address] [address] [facility] BENZODIA ZEPINES SCREEN PANEL SPECIFIC GRAVITY OF [...] May 16, 2024 01:45 PM Reporting Lab: [address] [address] Performing Lab: [address] [address] [facility] BUPRENOR PHINE SCREEN PANEL BUPRENORPH INE [PRESENCE] [...] May 16, 2024 01:45 PM Reporting Lab: [facility] [address] [address] Performing Lab: [address] [address] [facility]PREN[facility] PHINE SCREEN PANEL PH OF URINE [...] May 16, 2024 01:45 PM Reporting Lab: [address] [address] Performing Lab: [address] [address] [facility]EN[facility] PHINE SCREEN PANEL CREATININE [MASS/VOLU ME] [...] PM Reporting Lab: [facility] [place] [facility] [address] [facility] [address] Performing Lab: [facility] [place] [facility] [address] [facility] [address] [facility] [place] [facility] BUPRENOR PHINE SCREEN PANEL SPECIFIC GRAVITY OF [...] PM Reporting Lab: [facility] [place] [facility] [address] [facility] [address] Performing Lab: [facility] [place] [address] [address] [facility] [place] [facility] CANNABIN OIDS SCREEN PANEL CANNABINOI DS [PRESENCE] [...] PM Reporting Lab: [facility] [place] [address] [address] Performing Lab: [facility] [place] [address] [address] [facility] CANNABIN OIDS SCREEN PANEL PH OF URINE [...] May 16, 2024 01:45 PM Reporting Lab: [address] [address] Performing Lab: [address] [address] [facility] CANNABIN OIDS SCREEN PANEL CREATININE [MASS/VOLU ME] [...] May 16, 2024 01:45 PM Reporting Lab: [address] [address] Performing Lab: [address] [address] [facility] CANNABIN OIDS SCREEN PANEL SPECIFIC GRAVITY OF [...] May 16, 2024 01:45 PM Reporting Lab: [facility] [address] [facility]: [facility] [address] [address] [facility] COCAINE SCREEN PANEL COCAINE [PRESENCE] IN URINE [...] May 16, 2024 01:45 PM Reporting Lab[facility] [address] [facility]: [facility] [address] [address] [facility] COCAINE SCREEN PANEL PH OF URINE 4.7 [...] may have been adulterated . Ordering Provider: NMOAN MADSEN Report Released Date/Time: May 16, 2024 01:45 PM Reporting Lab: [facility] [address] Performing Lab: [address] [address] [facility] COCAINE SCREEN PANEL CREATININE [MASS/VOLU ME] IN [...] May 16, 2024 01:45 PM Reporting Lab: [address] [address] Performing Lab: [address] [address] [facility] COCAINE SCREEN PANEL SPECIFIC GRAVITY OF URINE [...] May 16, 2024 01:45 PM Reporting Lab: [address] [address] Performing Lab: [address] [address] [facility] FENTANYL SCREEN PANEL FENTANYL [PRESENCE] IN URINE [...] May 16, 2024 01:45 PM Reporting Lab: [address] [address] Performing Lab: [address] [address] [facility] [place] SCREEN PANEL PH OF URINE 4.7 [...] May 16, 2024 01:45 PM Reporting Lab: [address] [address] Performing Lab: [address] [address] [facility] [place]L SCREEN PANEL CREATININE [MASS/VOLU ME] IN [...] May 16, 2024 01:45 PM Reporting Lab: [facility] [address] Performing Lab: [facility] [address] [facility] [address] [facility] [place] SCREEN PANEL SPECIFIC GRAVITY [...] May 16, 2024 01:45 PM Reporting Lab: [facility] [address] Performing Lab: [address] [address] [facility] METHADON E SCREEN METHADONE [PRESENCE] IN URINE BY SCREEN METHOD None detected (Negativ e) 05/16 L Specimen Type: URINE Comment: BRISSA test are qualitative , any L or H flags only indicate a [facility] alert was sent. Ordering Provider: NOMAN MADSEN S Report Released Date/Time: May 16, 2024 01:45 PM Reporting Lab: [facility] [address] [facility] [address] Performing Lab: [facility] [address] [facility] [address] [facility] OPIATES SCREEN PANEL OPIATES [PRESENCE] IN [...] May 16, 2024 01:45 PM Reporting Lab: [address] [address] Performing Lab: [address] [address] [facility] OPIATES SCREEN PANEL PH OF URINE 4.7 [...] May 16, 2024 01:45 PM Reporting Lab: [address] [address] Performing Lab: [address] [address] [facility] OPIATES SCREEN PANEL CREATININE [MASS/VOLU ME] IN [...] May 16, 2024 01:45 PM Reporting Lab: [facility] [address] [address] Performing Lab: [facility] [address] [facility] OPIATES SCREEN PANEL SPECIFIC GRAVITY OF [...] May 16, 2024 01:45 PM Reporting Lab: [facility] [address] Performing Lab: [facility] [address] [facility] OXYCODON E SCREEN PANEL OXYCODONE [...] May 16, 2024 01:45 PM Reporting Lab: [facility]TRN [facility]ETS [address] [address] Performing Lab: [facility] [address] [facility] OXYCODON E SCREEN PANEL PH OF [...] May 16, 2024 01:45 PM Reporting Lab: [address] [address] Performing Lab: [address] [address] [facility] OXYCODON E SCREEN PANEL CREATININE [MASS/VOLU ME] [...] May 16, 2024 01:45 PM Reporting Lab: [address] [address] Performing Lab: [address] [address] [facility] OXYCODON E SCREEN PANEL SPECIFIC GRAVITY OF [...] Lab: [facility] [address] [facility] [address] Performing Lab: [facility] [address] [facility] [address] [facility] Vital [...] [facility] [id number] 02/10 [facility] En[facility] [id number] 02/16 [facility] OFF[facility] O/P EST MOD 30-39 MIN [id number] Diagnos is: ICD-10- CM G89.4 Chronic pain syndrom e
LANDON MADSEN S 02/17 [facility] [id number] 02/17 [facility] Outpatient Encounter [id number] 02/18 [facility] PRO PHONE CALL 11-20 MIN [id number] Diagnos is: ICD-10- CM J44.9 Chronic obstruc tive pulmona ry disease , unspeci fied
JARMOLOWIC ZROSALVA 02/18 [facility] Q[facility]P OL DIG ASSMT&MGMT 5-10 [id number] Diagnos is: ICD-10- CM Z04.89 Encount er for examina tion and observa tion for oth reasons
JESSA CONTI IE 03/03 [facility] DIG ASSMT&MGMT 5-10 [id number] Diagnos is: ICD-10- CM Z04.89 Encount er for examina tion and observa tion for oth reasons
GITA REYES 03[place]04 [place] [facility] Outpatient Encounter [id number] 03/12 [facility] Outpatient Encounter [id number] 03/24 [facility] OFFICE O/P NEW SF 15-29 MIN [id number] Diagnos is: ICD-10- CM E66.9 Obesity , unspeci fied
SUKHJINDER GARDUNO CE 03/25 [facility] O/P EST MOD 30-39 MIN [id number] Diagnos is: ICD-10- CM G89.4 Chronic pain syndrom e
LANDON MADSEN 03/25 [facility] En[facility] [id number] 03/25 [facility] En[facility] [id number] 03/25 [facility] OFFICE O/P EST SF 10-19 MIN [id number] Diagnos is: ICD-10- CM F41.9 Anxiety disorde r, unspeci fied
Pallavi HAWKINS MD 03/31 [facility] En[facility] [id number] 03/31 [facility] Encounter [id number] 04/05 [facility]counter [id number] 04/05 [facility] Encounter [id number] 04/05 [facility] [place] QNHP OL DIG ASSMT&MGMT 5-10 [id number] Diagnos is: ICD-10- CM Z04.89 Encount er for examina tion and observa tion for oth reasons
JESSA CONTI IE 04/07 [place] [facility] En[facility] [id number] 04/07 [facility] En[facility] [id number] 04/15 [facility] Encounter [id number] 04/15 [facility] Encounter [id number] 04/20 [facility] En[facility] [id number] 04/20 [facility] En[facility] [id number] 04/21 [facility] OFF[facility] O/P EST MOD 30-39 MIN [id number] Diagnos is: ICD-10- CM G89.4 Chronic pain syndrom e
LANDON MADSEN 04/21 [facility] En[facility] [id number] 04/21 [facility] Encounter [id number] 04/23 [facility] Encounter [id number] 05/04 [facility] Encounter [id number] 05/12 [facility] Encounter [id number] 05/12 [facility] OFF[facility] O/P EST MOD 30-39 MIN [id number] Diagnos is: ICD-10- CM G89.4 Chronic pain syndrom e
LANDON MADSEN 05/13 [facility] En[facility] [id number] 05/13 [facility] Encounter [id number] 05/13 [facility] Encounter [id number] 05/14 [facility] Encounter [id number] 05/17 [facility] Encounter [id number] 05/21 [facility]counter [id number] 05/27 [facility] En[facility] [id number] 05/31 [facility] TUBING WITH HEATING ELEMENT [id number] Diagnos is: ICD-10- CM G47.30 Sleep apnea, unspeci fied
JARMOLOWIC ZROSALVA 05/31 [facility] En[facility] [id number] 06/11 [facility] Encounter [id number] 06/23 [facility] OFFICE O/P EST MOD 30-39 MIN [id number] Diagnos is: ICD-10- CM G89.4 Chronic pain syndrom e
LANDON MADSEN S 06/24 [facility] OFFICE O/P EST SF 10-19 MIN [id number] Diagnos is: ICD-10- CM F41.9 Anxiety disorde r, unspeci fied
Pallavi HAWKINS MD 07/01 [facility] En[facility] [id number] 07/02 [facility] OFFICE O/P EST HI 40-54 MIN [id number] Diagnos is: ICD-10- CM G89.29 Other chronic pain
KUPFERSCHM ID,JESSIKA B 07/05 [facility] En[facility] [id number] 07/06 [facility] Encounter [id number] 07/07 [facility] OFF/OP EST MAY X REQ PHY/QHP [id number] Diagnos is: ICD-10- CM Z23 Encount er for immuniz ation<b r/> ROMANA WOODS 07/08 [facility] En[facility] [id number] 07/13 [facility] Encounter [id number] 07/13 [facility] Encounter [id number] 07/13 [facility] Encounter [id number] 07/14 [facility] Encounter [id number] 07/15 [facility] Encounter [id number] 07/27 [facility] OFFICE O/P EST LOW 20 MIN [id number] Diagnos is: ICD-10- CM G89.4 Chronic pain syndrom e
LANDON MADSEN 07/27 [facility] En[facility] [id number] 07/28 [facility] Encounter [id number] 08/03 [facility] OFFICE O/P EST SF 10 MIN [id number] Diagnos is: ICD-10- CM F41.9 Anxiety disorde r, unspeci fied
Pallavi HAWKINS MD 08/05 [facility] En[facility] [id number] 08/11 [facility] Encounter [id number] 08/11 [facility] Out[facility] Encounter [id number] 08/17 [facility] Out[facility] Encounter [id number] 08/18 [facility] OFFICE O/P EST MOD 30 MIN [id number] Diagnos is: ICD-10- CM G89.4 Chronic pain syndrom e
LADNON MADSEN 08/18 [facility] En[facility] [id number] 08/20 [facility] Out[facility] Encounter [id number] 08/23 [facility] Out[facility] Encounter [id number] 08/24 [facility] COLLJ & INTERPJ DATA EA 30 D [id number] Diagnos is: ICD-10- CM G47.30 Sleep apnea, unspeci fied
TRISTINANIKA Steve A 08/25 [facility] En[facility] [id number] 08/27 [facility] Encounter [id number] 08/27 [facility] Encounter [id number] 08/31 [facility] Encounter [id number] 08/31 [facility] Encounter [id number] 09/01 [facility]counter [id number] 09/01 [facility]counter [id number] 09[facility]01 [facility] Encounter [id number] 09/02 [facility] Encounter [id number] 09/02 [facility] HC PRO PHONE CALL 21-30 MIN [id number] Diagnos is: ICD-10- CM Z71.89 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 ed credit support counselor ing<br/ > PETEREVIE STEVEN Rosa 09/02 [facility] En[facility] [id number] 09/02 [facility]counter [id number] 09/06 [facility] En[facility] [id number] 09/07 [facility] Encounter [id number] 09/07 [facility] Encounter [id number] 09/08 [facility] En[facility] [id number] 09/08 [facility] OFFICE O/P EST MOD 30 MIN [id number] Diagnos is: ICD-10- CM Z23 Encount er for immuniz ation<b r/> ROMANA WOODS 09/08 [facility] MTMS BY PHARM ADDL 15 MIN [id number] Diagnos is: ICD-10- CM G89.4 Chronic pain syndrom e
TEPLU[employer]E 09/08 [facility] En[facility] [id number] 09[facility]08 [facility] Encounter [id number] 09/08 [facility] Encounter [id number] 09[facility]10 [facility]counter [id number] 09/10 [facility] Out[facility]counter [id number] 09/16 [facility] Out[facility] Encounter [id number] 09/16 [facility]counter [id number] 09[facility]17 [facility] Encounter [id number] 09/22 [facility] Encounter [id number] 09/23 [facility] Encounter [id number] 09/26 [facility] Encounter [id number] 09/29 [facility] Encounter [id number] 10/04 [facility] OFFICE O/P EST MOD 30 MIN [id number] Diagnos is: ICD-10- CM G89.4 Chronic pain syndrom e
LANDON MADSENM Giancarlo 10/05 [facility] OFFICE O/P EST LOW 20 MIN [id number] Diagnos is: ICD-10- CM F41.9 Anxiety disorde r, unspeci fied
Pallavi HAWKINS MD 10/06 [facility] En[facility] [id number] 10/13 [facility] Encounter [id number] 10/18 [facility] Encounter [id number] 10/19 [facility] Encounter [id number] 10/24 [facility] Encounter [id number] 10/31 [facility] Encounter [id number] 11/03 [facility] Encounter [id number] 11/07 [facility]counter [id number] 11/11 [facility] Encounter [id number] ADRIANA CERVANTESN 11/14 [facility] En[facility] [id number] 11/15 [facility] OFFICE O/P EST MOD 30 MIN [id number] Diagnos is: ICD-10- CM G89.4 Chronic pain syndrom e
LANDON MADSEN 11/16 [facility] En[facility] [id number] 11/16 [facility] En[facility] [id number] 12/05 [facility] Encounter [id number] 12/05 [facility] CPAP FULL FACE MASK [id number] Diagnos is: ICD-10- CM G47.39 Other sleep apnea<b r/> ANIKA CROW 12/06 [facility] [id number] 12/06 [facility] Out[facility] Encounter [id number] 12/21 [facility]counter [id number] 12/26 [facility] Out[facility] Encounter [id number] 01/02 [facility] OFFICE O/P EST LOW 20 MIN [id number] Diagnos is: ICD-10- CM F41.9 Anxiety disorde r, unspeci fied
Pallavi HAWKINS MD 01/02 [facility] OFFICE O/P EST LOW 20 MIN [id number] Diagnos is: ICD-10- CM I10 Essenti al (primar y) hyperte nsion<b r/> ROMANA WOODS 01/16 [facility] Outpatient Encounter [id number] 01/24 [facility] OFFICE O/P EST MOD 30 MIN [id number] Diagnos is: ICD-10- CM G89.4 Chronic pain syndrom e
LANDON MADSEN 01/25 [facility] Out[facility] Encounter [id number] 02/01 [facility] Out[facility] Encounter [id number] 02/02 [facility] Out[facility] Encounter [id number] 02/07 [facility] Encounter [id number] 02/07 [facility] Encounter [id number] 02/08 [facility] Out[facility] Encounter [id number] 02/08 [facility] Out[facility] Encounter [id number] Diagnos is: ICD-10- CM E87.5 Hyperka lemia<b r/> LANDON MADSEN 02/08 [facility] Out[facility] Encounter [id number] 02/10 [facility] Out[facility]counter [id number] 02/10 [facility] Out[facility]counter [id number] 02/10 [facility] Out[facility] Encounter [id number] 02/11 [facility] OFFICE O/P EST LOW 20 MIN [id number] Diagnos is: ICD-10- CM F41.9 Anxiety disorde r, unspeci fied
Pallavi HAWKINS MD 02/13 [facility] Out[facility]counter [id number] 02/23 [facility] Out[facility]counter [id number] 02/24 [facility] Out[facility]counter [id number] 03/02 [facility] Out[facility] Encounter [id number] 03/04 [facility] OFFICE O/P EST MOD 30 MIN [id number] Diagnos is: ICD-10- CM I10 Essenti al (primar y) hyperte nsion<b r/> ROMANA WOODS 03/06 [facility] Out[facility] Encounter [id number] 1.03/16 [facility] HC PRO PHONE CALL 5-10 MIN [id number] 1. Diagnos is: ICD-10- CM J44.9 Chronic obstruc tive pulmona ry disease , unspeci fied
JARMOLOWIC Z,ROSALVA 03/16 [facility] Encounter [id number] 1.03/28 [facility]counter [id number]/30 [facility] QNHP OL DIG ASSMT&MGMT 5-10 [id number] Diagnos is: ICD-10- CM G89.4 Chronic pain syndrom e
LUCIE FOSTER NEWMAN 03/30 [facility] Out[facility] Encounter [id number] 04/03 [facility] Out[facility] Encounter [id number] 1.04/05 [facility] Out[facility]counter [id number]/05 [facility] [facility] Outpatient Encounter [id number] [facility] Outpatient Encounter [id number] Diagnos is: ICD-10- CM F41.9 Anxiety disorde r, unspeci fied
Pallavi HAWKINS MD 04/13 [facility] Outpatient Encounter [id number] 04/13 [facility] OFFICE O/P EST MOD 30 MIN [id number] Diagnos is: ICD-10- CM I50.9 Heart failure , unspeci fied
ROMANA WOODS 04/13 [facility] OFF/OP EST MAY X REQ PHY/QHP [id number] Diagnos is: ICD-10- CM Z23 Encount er for immuniz ation<b r/> TARYN RINGY E 04/13 [facility] Out[facility] Encounter [id number] 04/14 [facility] Encounter [id number] 04/24 [facility] Encounter [id number] 05/03 [facility] Encounter [id number] 05/03 [facility] Encounter [id number] 05/09 [facility] Encounter [id number] 05/10 [facility] Encounter [id number] Diagnos is: ICD-10- CM G89.4 Chronic pain syndrom e
LANDON MADSEN S 05/10 [facility] Encounter [id number] 05/10 [facility] OFFICE O/P EST LOW 20 MIN [id number] Diagnos is: ICD-10- CM F41.9 Anxiety disorde r, unspeci fied
Pallavi HAWKINS MD 05/15 [facility] Encounter [id number] 05/15 [facility] Out[facility] Encounter [id number] Diagnos is: ICD-10- CM G89.4 Chronic pain syndrom e
CUTLANDON OROZCO KARIME S 05/16 [facility] Out[facility] Encounter [id number] 05/19 [facility] Out[facility] Encounter [id number] 05/21 [facility] Encounter [id number] 05/24 [facility] Out[facility] Encounter [id number] 05/24 [facility] OFFICE O/P EST HI 40 MIN [id number] Diagnos is: ICD-10- CM G89.4 Chronic pain syndrom e
CALELANDON S 05/25 [facility] Out[facility] Encounter [id number] 05/30 [facility] Out[facility] Encounter [id number] 06/01 [facility] Out[facility] Encounter [id number] 06/15 [facility] Out[facility] Encounter [id number] 06/20 [facility] Outpatient Encounter [id number] 06/28 [facility] HC PRO PHONE CALL 11-20 MIN [id number] 1. Diagnos is: ICD-10- CM F41.9 Anxiety disorde r, unspeci fied
Janet MCMULLEN ATRICIA A 07/07 [facility] Outpatient Encounter [id number] 07/12 [facility] OFFICE O/P EST MOD 30 MIN [id number] 1. Diagnos is: ICD-10- CM G89.4 Chronic pain syndrom e
LANDON MADSEN 07/13 [facility] Outpatient Encounter [id number] 07/24 [facility] [place] Social History Combined list of available smoking, tobacco, and other social history from Department of Defense and Veterans Affairs facilities. Social History Type Response Date Comment Source Tobacco smoking status [facility] VA-TOBACCO QUIT 15 YRS OR MORE 03/06/2024 [facility] History of tobacco use VA-TOBACCO FORMER USER 03/06/2024 [facility] History of tobacco use VA-TOBACCO FORMER USER 03/31/2023 [facility] History of tobacco use VA-TOBACCO NEVER USED 03/25/2022 [facility] History of tobacco use VA-TOBACCO FORMER USER 03/19/2021 [facility] History of tobacco use VA-TOBACCO USE DECLINED TO ANSWER 09/20/2018 [facility] [place] History of tobacco use QUIT TOBACCO USE IN PAST YEAR 10/21/2017 [facility] [place] [facility] History of tobacco use QUIT TOBACCO USE 1-7 YEARS AGO 12/30/2016 [facility] [place] [facility] History of tobacco use QUIT TOBACCO USE 1-7 YEARS AGO 06/04/2016 [facility] [place] [facility] History of tobacco use QUIT TOBACCO USE 1-7 YEARS AGO 05/17/2015 quit 2 years ago. [facility] [place] [facility] History of tobacco use QUIT TOBACCO USE 1-7 YEARS AGO 06/07/2014 [facility] [place] [facility] History of tobacco use QUIT TOBACCO USE IN PAST YEAR 11/30/2013 [facility] [place] [facility] History of tobacco use QUIT TOBACCO USE IN PAST YEAR 05/22/2013 [facility] [place] [facility] History of tobacco use QUIT TOBACCO USE IN PAST YEAR 12/01/2012 [facility] [place] [facility] History of tobacco use V1-PT DECLINES TOBACCO CESSATION MEDS 06/07/2012 [facility] [place] [facility] History of tobacco use CURRENT SMOKER 01/05/2012 intermittenly [facility] [place] [facility] History of tobacco use V1-PT DECLINES TOBACCO CESSATION MEDS 02/17/2011 [facility] [place] [facility] History of tobacco use QUIT TOBACCO USE IN PAST YEAR 08/13/2010 [facility] [place] [facility] History of tobacco use QUIT TOBACCO USE IN PAST YEAR 02/19/2010 [facility] [place] [facility] History of tobacco use QUIT TOBACCO USE IN PAST YEAR 09/13/2009 [facility] [place] History of tobacco use V1-PT DECLINES TOBACCO CESSATION MEDS 02/05/2009 [facility] [place] [facility] History of tobacco use QUIT TOBACCO USE IN PAST YEAR 08/22/2008 [facility] [place] [facility] History of tobacco use V1-PT DECLINES TOBACCO CESSATION MEDS 03/12/2008 [facility] of tobacco use CURRENT SMOKER 03/08/2008 smokes one pack a da y for about 10 years ago. [facility] Plan of Care List of future care activities from Department of Veterans Affairs facilities. Additional future care activities may be listed in the Assessment and Plan section. Date/Time Care Activity Care Activity Detail Facili ty 08/03/2024 AMBULATORY - PSYCHIATRY AMBULATORY - PSYC HIATRY [facility] 08/24/2024 AMBULATORY - MEDICINE AMBULATORY - MEDICI NE [facility] 09/07/2024 AMBULATORY - MEDICINE AMBULATORY - MEDICI NE [facility] 07/07/2024 Consult Order PSYCHIATRIC MEDI CATION BHIP/NH[facility] OUTPT Cons Commercial Correspondent's Choice [facility]
--- OUTSIDE RECORDS SUMMARY | 2024-07-25 11:24 | XMS_ITS | Encounter Summary ---
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 ([place]) Organization [facility] [place] Address [address] [place] [id number] Care Team Providers Care Forestry Aid Name Role Phone ROMANA CASTILLO Primary Care [...] Policy Garcia [facility] (MEDICAID) [facility] May 14, 2009 [id number] SAMPLE,ROCCO MOORE PATIENT [facility] MEDICAID [facility] HUMAN [facility] May 14, 2009 [id number] SAMPLE,ROCCO MOORE PATIENT MEDICAID MEDICAID [facility] Jul 26, 2018 MEDICAI D [id number] SAMPLE,ROCCO MOORE PATIENT MEDICARE (WNR) MEDICARE (M) PART A November 24, 2015 PART A [id number] [phone] SAMPLE,ROCCO MOORE PATIENT MEDICARE (WNR) MEDICARE (M) PART B November 24, 2015 PART B [id number] ROCCO QUEZADA PATIENT Selected Encounter This [...] 06, 2023 09:00 AM AMBULATORY - MEDICINE [place] [facility] [place] [facility] Oct 07, 2023 01:00 PM AMBULATORY - PSYCHIATRY [facility] [place] [facility] Oct 25, 2023 11:00 AM AMBULATORY - MEDICINE [place] [facility] [place] [facility] Nov 09, 2023 09:00 AM AMBULATORY - MEDICINE [place] [facility] [place] [facility] Nov 17, 2023 09:30 AM AMBULATORY - MEDICINE [place] [facility] [place] [facility] Jan 03, 2024 11:00 AM AMBULATORY - PSYCHIATRY [facility] [place] [facility] Jan 17, 2024 03:00 PM AMBULATORY - MEDICINE [place] [facility] [place] [facility] Jan 26, 2024 09:30 AM AMBULATORY - MEDICINE [place] [facility] [place] [facility] Feb 03, 2024 03:00 PM AMBULATORY - MEDICINE [facility] [place] [facility] Feb 14, 2024 11:00 AM AMBULATORY - PSYCHIATRY [facility] [place] [facility] Mar 06, 2024 09:00 AM AMBULATORY - MEDICINE [place] [facility] [place] [facility] Social History: Smoking Status (Most current) [...] 31, 2023 11:00 AM [facility] Tobacco Use History This section includes a history of the smoking, or tobacco-related health factors, that were collected on or before the date of the Encounter. The data comes from the MD facility where the Encounter took place. Date/Time Smoking Status/Tobac co Use Comment Facility Mar 31, 2023 11:00 AM VA-TOBACCO QUIT 1 TO < 5 YRS [facility] [place] [facility] Mar 25, 2022 10:30 AM VA-TOBACCO NEVER USED [facility] [place] [facility] Mar 19, 2021 02:00 PM VA-TOBACCO FORMER USER [facility] [place] [facility] Mar 19, 2021 02:00 PM [facility] Sep 20, 2018 11:24 AM VA-TOBACCO USE DECLINED TO ANSWER [facility] [place] [facility] Oct 21, 2017 08:13 AM QUIT TOBACCO USE IN PAST YEAR [facility] [place] [facility] Dec 30, 2016 08:28 AM QUIT TOBACCO USE 1-7 YEARS AGO [facility] [place] [facility] Jun 04, 2016 08:43 AM QUIT TOBACCO USE 1-7 YEARS AGO [facility] [place] [facility] May 17, 2015 08:45 AM QUIT TOBACCO USE 1-7 YEARS AGO quit 2 years ago. [facility] [place] [facility] Jun 07, 2014 09:25 AM QUIT TOBACCO USE 1-7 YEARS AGO [facility] [place] [facility] November 30, 2013 08:44 AM QUIT TOBACCO USE IN PAST YEAR [facility] [place] [facility] May 22, 2013 10:10 AM QUIT TOBACCO USE IN PAST YEAR [facility] [place] [facility] December 01, 2012 01:54 PM QUIT TOBACCO USE IN PAST YEAR [facility] [place] [facility] Jun 07, 2012 08:16 AM V1-PT DECLINES TOBACCO CESSATION MEDS [facility] Jun 07, 2012 08:16 AM V1-PT THINKING ABOUT QUIT TOBACCO [facility] [place] [facility] Jan 05, 2012 09:00 AM CURRENT SMOKER intermittenly MD [facility]TR [facility] [place] [facility] Jan 05, 2012 09:00 AM V1-PT DECLINES REF TO TOBACCO CESS PRGM [facility] [place] [facility] Jan 05, 2012 09:00 AM V1-PT DECLINES TOBACCO CESSATION MEDS [facility] [place] [facility] Jan 05, 2012 09:00 AM V1-PT THINKING ABOUT QUIT TOBACCO USE [facility] [place] [facility] Feb 17, 2011 09:52 AM V1-PT DECLINES TOBACCO CESSATION MEDS [facility] [place] [facility] Feb 17, 2011 09:52 AM V1-PT THINKING ABOUT QUIT TOBACCO USE [facility] [place] [facility] Aug 13, 2010 11:31 AM QUIT TOBACCO USE IN PAST YEAR [facility] [place] [facility] Feb 19, 2010 01:26 PM QUIT TOBACCO USE IN PAST YEAR [facility] [place] [facility] Sep 13, 2009 11:04 AM QUIT TOBACCO USE IN PAST YEAR [facility] [place] [facility] Feb 05, 2009 08:29 AM V1-PT DECLINES REF TO TOBACCO CESS PRGM [facility] [place] [facility] Feb 05, 2009 08:29 AM V1-PT DECLINES TOBACCO CESSATION MEDS [facility] [place] [facility] Feb 05, 2009 08:29 AM V1-PT THINKING ABOUT QUIT TOBACCO [facility] [place] [facility] Aug 22, 2008 09:04 AM QUIT TOBACCO USE IN PAST YEAR [facility] [place] [facility] Mar 12, 2008 10:40 AM V1-PT DECLINES REF TO TOBACCO CESS PRGM [facility] [place] [facility] Mar 12, 2008 10:40 AM V1-PT DECLINES TOBACCO CESSATION MEDS [facility] [place] [facility] Mar 12, 2008 10:40 AM V1-PT NOT INTERESTED IN QUIT TOBACCO USE [facility] [place] [facility] Mar 08, 2008 09:37 AM CURRENT SMOKER smokes one pack a day for about [address] [facility] [place] [facility] Encounter Notes: All associated encounter notes This section contains the clinical notes associated to the Encounter. Date/Time Encounter Note(s) Provider Source Sep 17, 2023 12:00 AM NONVA NOTE: LOCAL TITLE: [facility] STANDARD TITLE: NONVA NOTE DATE OF NOTE: SEP 17, 2023 ENTRY DATE: SEP 27, 2023@11:59:04 AUTHOR: SURAJ MARTIN EXP COSIGNER: URGENCY: STATUS: COMPLETED VistA Imaging - Scanned Document SCANNED DOCUMENT SIGNATURE NOT REQUIRED Electronically Filed: 09/27/2023 by: SURAJ LUNA [facility]
--- OUTSIDE RECORDS SUMMARY | 2024-07-25 11:24 | XMS_ITS ---
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 [place] Organization [facility] [place] [place] [facility] [place] Address [address] [place] [address] Care Team Providers Care Lead Java [id number] Developer Name Role Phone ROMANA CASTILLO Primary Care [...] to Policy Garcia [facility] (MEDICAID) MEDICAID [place] May 14, 2009 [id number] SAMPLE,ROCCO MOORE PATIENT [facility]ID [facility] May 14, 2009 [id number] SAMPLE,ROCCO MOORE PATIENT MEDICAID MEDICAID [facility] Jul 26, 2018 MEDICAI D [id number] SAMPLE,ROCCO MOORE PATIENT MEDICARE (WNR) MEDICARE (M) PART A November 24, 2015 PART A [id number] SAMPLE,ROCCO MOORE PATIENT MEDICARE (WNR) MEDICARE (M) PART B November 24, 2015 PART B [id number] SAMPLE,ROCCO MOORE PATIENT Selected Encounter This section includes the information on record at NH for the Encounter. Date/Time Encounter Type Encounter Description Reason Pro vider Source Sep 24, 2023 06:52 PM Outpatient Encounter ADMIN PAT ACTIVTIES (MASNONCT) IHE Encounter Template Text not used by NH Plan of Treatment: Future Appointments (+ 6 months) and Future Tests (+/- 45 days) The Plan of Treatment section includes future care activities for the patient from all [place] treatmentfacilities. This section includes future appointments and future orders which are active, pending or scheduled. Future Appointments This section includes appointments that were scheduled to occur 6 months from the date of the Encounter, up to a maximum of 20 appointments. The data comes from all NH treatment facilities. Appointment Date/Time Appointment Type Appointme nt Facility Name Oct 06, 2023 09:00 AM AMBULATORY - MEDICINE [place] [facility] [place] [facility] Oct 07, 2023 01:00 PM AMBULATORY - PSYCHIATRY [place] [facility] [place] [facility] Oct 25, 2023 11:00 AM AMBULATORY - MEDICINE [place] [facility] [facility] Nov 09, 2023 09:00 AM AMBULATORY - MEDICINE [place] [facility] [facility] Nov 17, 2023 09:30 AM AMBULATORY - MEDICINE [place] [facility] [facility] Jan 03, 2024 11:00 AM AMBULATORY - PSYCHIATRY [place] [facility] [place] [facility] Jan 17, 2024 03:00 PM AMBULATORY - MEDICINE [place] [facility] [facility] Jan 26, 2024 09:30 AM AMBULATORY - MEDICINE [place] [facility] [facility] Feb 03, 2024 03:00 PM AMBULATORY - MEDICINE [place] [facility] [facility] Feb 14, 2024 11:00 AM AMBULATORY - PSYCHIATRY [place] [facility] [place] [facility] Mar 06, 2024 09:00 AM AMBULATORY - MEDICINE [place] [facility] [facility] Social History: Smoking Status (Most current) and Tobacco Use (All prior to encounter date) This section includes the most current, and the historical, smoking and tobacco- related health factors from the NH facility where the Encounter took place. Current Smoking Status This section includes the most current smoking, or tobacco-related health factor, from the NH facility where the Encounter took place. Date/Time Current Smoking Status Comment Facil it Mar 31, 2023 11:00 AM VA-TOBACCO FORMER USER [facility] Tobacco Use History This section includes a history of the smoking, or tobacco-related health factors, that were collected on or before the date of the Encounter. The data comes from the NH facility where the Encounter took place. Date/Time Smoking Status/Tobac co Use Comment Facility Mar 31, 2023 11:00 AM VA-TOBACCO QUIT 1 TO < 5 YRS [facility] [place] [facility] Mar 25, 2022 10:30 AM VA-TOBACCO NEVER USED [facility] [facility] Mar 19, 2021 02:00 PM VA-TOBACCO FORMER USER [facility] [place] [facility] Mar 19, 2021 02:00 PM VA-TOBACCO QUIT < 1 YEAR [facility] [place] [facility] Sep 20, 2018 11:24 AM VA-TOBACCO USE DECLINED TO ANSWER [facility] [place] [facility] Oct 21, 2017 08:13 AM QUIT TOBACCO USE IN PAST YEAR [facility] [place] [facility] Dec 30, 2016 08:28 AM QUIT TOBACCO USE 1-7 YEARS AGO [facility] [place] [facility] Jun 04, 2016 08:43 AM QUIT TOBACCO USE 1-7 YEARS AGO [facility] [place] [facility] May 17, 2015 08:45 AM QUIT TOBACCO USE 1-7 YEARS AGO quit 2 years ago. [facility] [place] [facility] Jun 07, 2014 09:25 AM QUIT TOBACCO USE 1-7 YEARS AGO [facility] [place] [facility] November 30, 2013 08:44 AM QUIT TOBACCO USE IN PAST YEAR [facility] [place] [facility] May 22, 2013 10:10 AM QUIT TOBACCO USE IN PAST YEAR [facility] [place] [facility] December 01, 2012 01:54 PM QUIT TOBACCO USE IN PAST YEAR [facility] [place] [facility] Jun 07, 2012 08:16 AM V1-PT DECLINES TOBACCO CESSATION MEDS [facility] Jun 07, 2012 08:16 AM V1-PT THINKING ABOUT QUIT TOBACCO USE [facility] [place] [facility] Jan 05, 2012 09:00 AM CURRENT SMOKER intermittenly [facility] [place] [facility] Jan 05, 2012 09:00 AM V1-PT DECLINES REF TO TOBACCO CESS PRGM [facility] [place] [facility] Jan 05, 2012 09:00 AM V1-PT DECLINES TOBACCO CESSATION MEDS [facility] [place] [facility] Jan 05, 2012 09:00 AM V1-PT THINKING ABOUT QUIT TOBACCO USE [facility] [place] [facility] Feb 17, 2011 09:52 AM V1-PT DECLINES TOBACCO CESSATION MEDS [facility] [place] [facility] Feb 17, 2011 09:52 AM V1-PT THINKING ABOUT QUIT [facility]BACCO [facility] [place] [facility] Aug 13, 2010 11:31 AM QUIT TOBACCO USE IN PAST YEAR [facility] Feb 19, 2010 01:26 PM QUIT TOBACCO USE IN PAST YEAR [facility] [place] [facility] Sep 13, 2009 11:04 AM QUIT TOBACCO USE IN PAST [facility]AR [facility] [place] [facility] Feb 05, 2009 08:29 AM V1-PT DECLINES REF TO TOBACCO CESS PRGM [facility] [place] [facility] Feb 05, 2009 08:29 AM V1-PT DECLINES TOBACCO CESSATION MEDS [facility] Feb 05, 2009 08:29 AM V1-PT THINKING ABOUT QUIT TOBACCO USE [facility] [place] [facility] Aug 22, 2008 09:04 AM QUIT TOBACCO USE IN PAST YEAR [facility] [place] [facility] Mar 12, 2008 10:40 AM V1-PT DECLINES REF TO TOBACCO CESS [facility] [place] [facility] Mar 12, 2008 10:40 AM V1-PT DECLINES TOBACCO CESSATION MEDS [facility] [place] [facility] Mar 12, 2008 10:40 AM V1-PT NOT INTERESTED IN QUIT TOBACCO USE [facility] [place] [facility] Mar 08, 2008 09:37 AM CURRENT SMOKER smokes one pack a day for about 10 years ago. [facility] [place] [facility] Encounter Notes: All associated [...] COSIGNER: URGENCY: STATUS: COMPLETED Date: Sep Division: [facility] referred by Pharmacy Call Center for medication renewal: Controlled substance Medications requested: [id number]$ [id number] 30MG CAP The requests Window Budget Engineer for 09/24/2023* Defer to specialty clinic To be picked up. Please review and renew if appropriate. *This note was generated by [employer] Pharmacy Customer Care. If you have any questions or need assistance, do not contact this author. Please refer all questions to your local, on-site pharmacy departments. /divya/ AD MORRISON CPhT Junior Systems Analyst, [place]/Pharmacy Customer Care Signed: 09/24/2023 18:53 Receipt Acknowledged By: 09/27/2023 10:13 /es/ JAMIE HAWKINS JR, MD STAFF PSYCHIATRIST AD MORRISON [facility]
--- OUTSIDE RECORDS SUMMARY | 2024-07-25 11:25 | XMS_ITS ---
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 Address [address] [place] [address] Care Team Providers Care Bioinformatics Research Technician Name Role Phone ROMANA CASTILLO Primary [...] Garcia's Name Patient's Relationship to Policy Garcia [facility] (MEDICAID) [facility]ID [facility] May 14, 2009 [id number] SAMPLE,ROCCO MOORE PATIENT [facility] MEDICAID [facility] HUMAN [facility] May 14, 2009 [id number] SAMPLE,ROCCO MOORE PATIENT MEDICAID MEDICAID [facility] Jul 26, 2018 MEDICAI D [id number] SAMPLE,ROCCO MOORE PATIENT MEDICARE (WNR) MEDICARE (M) PART A November 24, 2015 PART A [id number] SAMPLE,ROCCO MOORE PATIENT MEDICARE (WNR) MEDICARE (M) PART B November 24, 2015 PART B [id number] ROCCO QUEZADA PATIENT Selected Encounter This [...] 06, 2023 09:00 AM AMBULATORY - MEDICINE PA C [facility] [place] [facility] Oct 07, 2023 01:00 PM AMBULATORY - PSYCHIATRY PA [facility] [place] [facility] Oct 25, 2023 11:00 AM AMBULATORY - MEDICINE PA C [facility] [place] [facility] Nov 09, 2023 09:00 AM AMBULATORY - MEDICINE PA C [facility] [place] [facility] Nov 17, 2023 09:30 AM AMBULATORY - MEDICINE PA C [facility] [place] [facility] Jan 03, 2024 11:00 AM AMBULATORY - PSYCHIATRY PA [facility] [place] [facility] Jan 17, 2024 03:00 PM AMBULATORY - MEDICINE PA C [facility] [place] [facility] Jan 26, 2024 09:30 AM AMBULATORY - MEDICINE PA C [facility] [place] [facility] Feb 03, 2024 03:00 PM AMBULATORY - MEDICINE PA C [facility] [place] [facility] Feb 14, 2024 11:00 AM AMBULATORY - PSYCHIATRY PA [facility] [place] [facility] Mar 06, 2024 09:00 AM AMBULATORY - MEDICINE PA C [facility] [place] [facility] Social History: Smoking Status (Most current) [...] 31, 2023 11:00 AM [facility] Tobacco Use History This section includes a history of the smoking, or tobacco-related health factors, that were collected on or before the date of the Encounter. The data comes from the [place] facility where the Encounter took place. Date/Time Smoking Status/Tobac co Use Comment Facility Mar 31, 2023 11:00 AM VA-TOBACCO QUIT 1 TO < 5 [facility] [place] [facility] Mar 25, 2022 10:30 AM VA-TOBACCO NEVER USED PA [facility]TR [facility] [place] [facility] Mar 19, 2021 02:00 PM VA-TOBACCO FORMER USER [facility] [place] [facility] Mar 19, 2021 02:00 PM VA-TOBACCO QUIT < 1 [facility] Sep 20, 2018 11:24 AM VA-TOBACCO USE DECLINED TO ANSWER [facility] [place] [facility] Oct 21, 2017 08:13 AM QUIT TOBACCO USE IN PAST YEAR [facility] [place] [facility] Dec 30, 2016 08:28 AM QUIT TOBACCO USE 1-7 YEARS AGO [facility] [place] [facility] Jun 04, 2016 08:43 AM QUIT TOBACCO USE 1-7 YEARS AGO PA CNT [facility] [place] [facility] May 17, 2015 08:45 AM QUIT TOBACCO USE 1-7 YEARS AGO quit 2 years ago. [facility] [place] [facility] Jun 07, 2014 09:25 AM QUIT TOBACCO USE 1-7 YEARS AGO PA [facility] [place] [facility] November 30, 2013 08:44 AM QUIT TOBACCO USE IN PAST YEAR [facility] [place] [facility] May 22, 2013 10:10 AM QUIT TOBACCO USE IN PAST YEAR [facility] [place] [facility] December 01, 2012 01:54 PM QUIT TOBACCO USE IN PAST YEAR [facility] [place] [facility] Jun 07, 2012 08:16 AM V1-PT DECLINES TOBACCO CESSATION MEDS [facility] Jun 07, 2012 08:16 AM V1-PT THINKING ABOUT QUIT TOBACCO USE [facility] [place] [facility] Jan 05, 2012 09:00 AM CURRENT SMOKER intermittenly PA CNTR [facility] [place] [facility] Jan 05, 2012 09:00 AM V1-PT DECLINES REF TO TOBACCO CESS PRGM PA CNTR [facility] [place] [facility] Jan 05, 2012 09:00 AM V1-PT DECLINES TOBACCO CESSATION MEDS PA [facility]TR [facility] [place] [facility] Jan 05, 2012 09:00 AM V1-PT THINKING ABOUT QUIT TOBACCO USE PA [facility]TR [facility] [place] [facility] Feb 17, 2011 09:52 AM V1-PT DECLINES TOBACCO CESSATION MEDS [facility] [place] [facility] Feb 17, 2011 09:52 AM V1-PT THINKING ABOUT QUIT TOBACCO USE PA [facility]TR [facility] [place] [facility] Aug 13, 2010 11:31 AM QUIT TOBACCO USE [facility]ST [facility] [place] [facility] Feb 19, 2010 01:26 PM QUIT TOBACCO USE IN [facility]ST YEAR [facility] [place] [facility] Sep 13, 2009 11:04 AM QUIT TOBACCO USE [facility]ST [facility]AR [facility] [place] [facility] Feb 05, 2009 08:29 AM V1-PT DECLINES REF TO TOBACCO CESS PRGM [facility] [place] [facility] Feb 05, 2009 08:29 AM V1-PT DECLINES TOBACCO CESSATION MEDS [facility] [place] [facility] Feb 05, 2009 08:29 AM V1-PT THINKING ABOUT QUIT TOBACCO USE [facility] [place] [facility] Aug 22, 2008 09:04 AM QUIT TOBACCO USE IN PAST YEAR PA [facility]TR [facility] [place] [facility] Mar 12, 2008 10:40 AM V1-PT DECLINES REF TO TOBACCO CESS PRGM PA [facility]TR [facility] [place] [facility] Mar 12, 2008 10:40 AM V1-PT DECLINES TOBACCO CESSATION MEDS PA [facility]TR [facility] [place] [facility] Mar 12, 2008 10:40 AM V1-PT NOT INTERESTED IN QUIT TOBACCO USE PA [facility]TR [facility] [place] [facility] Mar 08, 2008 09:37 AM CURRENT SMOKER smokes one pack a day for about 10 years ago. [facility] [place] [facility] Encounter Notes: All associated encounter notes This section contains the clinical notes associated to the Encounter. Date/Time Encounter Note(s) Provider Source Sep 30, 2023 12:00 AM NONVA NOTE: LOCAL TITLE: NON-[facility] STANDARD TITLE: NONVA NOTE DATE OF NOTE: SEP 30, 2023 ENTRY DATE: OCT 06, 2023@15:47:25 AUTHOR: JO ALLAN EXP COSIGNER: URGENCY: STATUS: COMPLETED VistA Imaging - Scanned Document SCANNED DOCUMENT SIGNATURE NOT REQUIRED Electronically Filed: 10/06/2023 by: JO ALLAN LICENSED PRACTICAL NURSE JO ALLAN CN[facility]L [facility]
--- OUTSIDE RECORDS SUMMARY | 2024-07-25 11:25 | XMS_ITS | Encounter Summary ---
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 Address [address] [place] [address] Care Team Providers Care Manager Of Corporate Communications Name Role Phone ROMANA CASTILLO Primary Care [...] HEALTH [facility] (MEDICAID) MEDICAID [facility] HUMAN [facility] May 14, 2009 [id number] SAMPLE,ROCCO MOORE PATIENT [facility] MEDICAID [facility] May 14, 2009 [id number] SAMPLE,ROCCO MOORE PATIENT MEDICAID MEDICAID [facility] E[facility] [place] Jul 26, 2018 MEDICAI D [id number] SAMPLE,ROCCO MOORE PATIENT MEDICARE (WNR) MEDICARE (M) PART A November 24, 2015 PART A [id number] SAMPLE,ROCCO MOORE PATIENT MEDICARE (WNR) MEDICARE (M) PART B November 24, 2015 PART B [id number] SAMPLE,ROCCO MOORE PATIENT Selected Encounter This section includes the information on record at [facility] for the Encounter. Date/Time Encounter Type Encounter Description Reason Pro vider Source IHE Encounter Template Text not used by VA
--- OUTSIDE RECORDS SUMMARY | 2024-07-25 11:25 | XMS_ITS | Encounter Summary ---
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 Address [address] [place] [id number] Care Team Providers Care Telephonic Nurse Case Manager Name Role Phone ROMANA CASTILLO Primary [...] Patient's Relationship to Policy Garcia [facility] (MEDICAID) [facility]ICAID [facility] May 14, 2009 [id number] SAMPLE,ROCCO MOORE PATIENT [facility] MEDICAID [facility] HUMAN [facility] May 14, 2009 [id number] SAMPLE,ROCCO MOORE PATIENT MEDICAID MEDICAID [facility] ST[facility] [place] Jul 26, 2018 MEDICAI D [id number] SAMPLE,ROCCO MOORE PATIENT MEDICARE (WNR) MEDICARE (M) PART A November 24, 2015 PART A [id number] SAMPLE,ROCCO MOORE PATIENT MEDICARE (WNR) MEDICARE (M) PART B November 24, 2015 PART B [id number] ROCCO QUEZAAD PATIENT Selected Encounter This section includes the information on record at [place] for the Encounter. Date/Time Encounter Type Encounter Description Reason Pro vider Source Sep 27, 2023 12:00 PM Outpatient Encounter EVENT (HISTORICAL) IHE Encounter Template Text not used by [place] Plan of Treatment: Future Appointments (+ 6 months) and Future Tests (+/- 45 days) The Plan of Treatment section includes future care activities for the patient from all [place] treatmentfacilities. This section includes future appointments and future orders which are active, pending or scheduled. Future Appointments This section includes appointments that were scheduled to occur 6 months from the date of the Encounter, up to a maximum of 20 appointments. The data comes from all [place] treatment facilities. Appointment Date/Time Appointment Type Appointme nt Facility Name Oct 06, 2023 09:00 AM AMBULATORY - MEDICINE IN C [facility] [place] [facility] Oct 07, 2023 01:00 PM AMBULATORY - PSYCHIATRY IN [facility] [place] [facility] Oct 25, 2023 11:00 AM AMBULATORY - MEDICINE IN C [facility] [facility] Nov 09, 2023 09:00 AM AMBULATORY - MEDICINE IN C [facility] [place] [facility] Nov 17, 2023 09:30 AM AMBULATORY - MEDICINE IN C [facility] [place] [facility] Jan 03, 2024 11:00 AM AMBULATORY - PSYCHIATRY IN [facility] [place] [facility] Jan 17, 2024 03:00 PM AMBULATORY - MEDICINE IN C [facility] [place] [facility] Jan 26, 2024 09:30 AM AMBULATORY - MEDICINE IN C [facility] [facility] Feb 03, 2024 03:00 PM AMBULATORY - MEDICINE IN C [facility] [facility] Feb 14, 2024 11:00 AM AMBULATORY - PSYCHIATRY IN [facility] [place] [facility] Mar 06, 2024 09:00 AM AMBULATORY - MEDICINE IN C [facility] [place] [facility] [...] 31, 2023 11:00 AM VA-TOBACCO [facility] Tobacco Use History This section includes a history of the smoking, or tobacco-related health factors, that were collected on or before the date of the Encounter. The data comes from the [place] facility where the Encounter took place. Date/Time Smoking Status/Tobac co Use Comment Facility Mar 31, 2023 11:00 AM VA-TOBACCO QUIT 1 TO < 5 YRS [facility] [place] [facility] Mar 25, 2022 10:30 AM VA-TOBACCO NEVER USED IN [facility]TR [place] [facility] Mar 19, 2021 02:00 PM VA-TOBACCO FORMER USER [facility] [place] [facility] Mar 19, 2021 02:00 PM VA-TOBACCO QUIT < 1 YEAR [facility] Sep 20, 2018 11:24 AM VA-TOBACCO USE DECLINED TO ANSWER [facility] [place] [facility] Oct 21, 2017 08:13 AM QUIT TOBACCO USE IN PAST YEAR [facility] [place] [facility] Dec 30, 2016 08:28 AM QUIT TOBACCO USE 1-7 YEARS AGO [facility] [place] [facility] Jun 04, 2016 08:43 AM QUIT TOBACCO USE 1-7 YEARS AGO IN CNT [facility] [place] [facility] May 17, 2015 08:45 AM QUIT TOBACCO USE 1-7 YEARS AGO quit 2 years ago. [facility] [place] [facility] Jun 07, 2014 09:25 AM QUIT TOBACCO USE 1-7 YEARS AGO IN CNT [place] [facility] November 30, 2013 08:44 AM QUIT TOBACCO USE IN PAST YEAR [facility] [place] [facility] May 22, 2013 10:10 AM QUIT TOBACCO USE IN PAST YEAR [facility] [place] [facility] December 01, 2012 01:54 PM QUIT TOBACCO USE IN PAST YEAR [facility] [place] [facility] Jun 07, 2012 08:16 AM V1-PT DECLINES TOBACCO CESSATION MEDS [facility] Jun 07, 2012 08:16 AM V1-PT THINKING ABOUT QUIT TOBACCO USE [facility] [place] [facility] Jan 05, 2012 09:00 AM CURRENT SMOKER intermittenly IN CNTR [place] [facility] Jan 05, 2012 09:00 AM V1-PT DECLINES REF TO TOBACCO CESS PRGM IN CNTR [place] [facility] Jan 05, 2012 09:00 AM V1-PT DECLINES TOBACCO CESSATION MEDS IN CNTR [facility] [facility] Jan 05, 2012 09:00 AM V1-PT THINKING ABOUT QUIT TOBACCO USE IN CNTR [place] [facility] Feb 17, 2011 09:52 AM V1-PT DECLINES TOBACCO CESSATION MEDS [facility] [facility] Feb 17, 2011 09:52 AM V1-PT THINKING ABOUT QUIT TOBACCO USE IN CNTR [place] [facility] Aug 13, 2010 11:31 AM QUIT TOBACCO USE [facility]ST [facility] [place] [facility] Feb 19, 2010 01:26 PM QUIT TOBACCO USE IN PAST YEAR [facility] [place] [facility] Sep 13, 2009 11:04 AM QUIT TOBACCO USE IN PAST YEAR [facility] [place] [facility] Feb 05, 2009 08:29 AM V1-PT DECLINES REF TO TOBACCO CESS PRGM [facility] [place] [facility] Feb 05, 2009 08:29 AM V1-PT DECLINES TOBACCO CESSATION MEDS [facility] [place] [facility] Feb 05, 2009 08:29 AM V1-PT THINKING ABOUT QUIT TOBACCO USE [facility] [place] [facility] Aug 22, 2008 09:04 AM QUIT TOBACCO USE IN PAST YEAR IN CNTR [place] [facility] Mar 12, 2008 10:40 AM V1-PT DECLINES REF TO TOBACCO CESS PRGM IN CNTR [place] [facility] Mar 12, 2008 10:40 AM V1-PT DECLINES TOBACCO CESSATION MEDS IN [facility]TR [facility] [facility] Mar 12, 2008 10:40 AM V1-PT NOT INTERESTED IN QUIT TOBACCO USE IN CNTR [place] [facility] Mar 08, 2008 09:37 AM CURRENT SMOKER smokes one pack a day for about 10 years ago. [facility] [place] [facility] Encounter Notes: All associated encounter notes This section contains the clinical notes associated to the Encounter. Date/Time Encounter Note(s) Provider Source Sep 27, 2023 12:00 PM NONVA NOTE: LOCAL TITLE: NON-[facility] STANDARD TITLE: NONVA NOTE DATE OF NOTE: SEP 27, 2023@12:00 ENTRY DATE: OCT 08, 2023@13:48:11 AUTHOR: GAVIN ESTRELLA EXP COSIGNER: URGENCY: STATUS: COMPLETED VistA Imaging - Scanned Document SCANNED DOCUMENT SIGNATURE NOT REQUIRED Electronically Filed: 10/08/2023 by: GAVIN WILLIS [facility]L [facility]
--- OUTSIDE RECORDS SUMMARY | 2024-07-25 11:25 | XMS_ITS | Encounter Summary ---
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 Address [address] [place] [address] Care Team Providers Care Compatibility Test Engineer Name Role Phone ROMANA CASTILLO Primary [...] Garcia's Name Patient's Relationship to Policy Garcia [facility] (MEDICAID) [facility]ICAID [facility] May 14, 2009 [id number] SAMPLE,ROCCO MOORE PATIENT [facility] MEDICAID [facility] May 14, 2009 [id number] SAMPLE,ROCCO MOORE PATIENT MEDICAID MEDICAID [facility] Jul 26, 2018 MEDICAI D [id number] SAMPLE,ROCCO MOORE PATIENT MEDICARE (WNR) MEDICARE (M) PART A November 24, 2015 PART A [id number] SAMPLE,ROCCO MOORE PATIENT MEDICARE (WNR) MEDICARE (M) PART B November 24, 2015 PART B [id number] SAMPLE,ROCCO MOORE PATIENT Selected Encounter This [...] syndrome RONAN MADSEN [place] [facility] [place] [facility] Oct 06, 2023 10:21 AM SECONDARY Anxiety disorder, unspecified RONAN MADSEN S [facility] [place] [facility] Oct 06, 2023 10:21 AM SECONDARY Chronic osteomyelitis with draining sinus, right femur RONAN MADSEN S [facility] [place] [facility] Oct 06, 2023 10:21 AM SECONDARY Unspecified open wound, left lower leg, initial encounter RONAN MADSEN [place] [facility] [place] [facility] Plan of Treatment: Future Appointments (+ 6 months) and Future Tests (+/- 45 days) The Plan of Treatment section includes future care activities for the [place] [facility] [place] [facility]. This section includes future appointments [...] AMBULATORY - PSYCHIATRY [place] [facility] [place] [facility] Oct 25, 2023 11:00 AM AMBULATORY - MEDICINE [place] [facility] [place] [facility] Nov 09, 2023 09:00 AM AMBULATORY - MEDICINE [place] [facility] [place] [facility] Nov 17, 2023 09:30 AM AMBULATORY - MEDICINE [place] [facility] [place] [facility] Jan 03, 2024 11:00 AM AMBULATORY - PS[facility]CHIATRY [facility] [place] [facility] Jan 17, 2024 03:00 PM AMBULATORY - MEDICINE [place] [facility] [place] [facility] Jan 26, 2024 09:30 AM AMBULATORY - MEDICINE [place] [facility] [place] [facility] Feb 03, 2024 03:00 PM AMBULATORY - MEDICINE [place] [facility] [place] [facility] Feb 14, 2024 11:00 AM AMBULATORY - PSYCHIATRY [facility] [place] [facility] Mar 06, 2024 09:00 AM AMBULATORY - MEDICINE [place] [facility] [place] [facility] Apr 03, 2024 11:30 AM AMBULATORY - MEDICINE [place] [facility] [place] [facility] Social History: Smoking Status (Most current) [...] place. Date/Time Current Smoking Status Comment Facil [facility] Mar 31, 2023 11:00 AM VA-TOBACCO FORMER USER [place] [facility] [place] [facility] Tobacco Use History This section includes a history of the smoking, or tobacco-related health factors, that were collected on or before the date of the Encounter. The data comes from the [place] facility where the Encounter took place. Date/Time Smoking Status/Tobac co Use Comment Facility Mar 31, 2023 11:00 AM VA-TOBACCO QUIT 1 TO < 5 YRS [facility] [place] [facility] Mar 25, 2022 10:30 AM VA-TOBACCO NEVER USED [place] [facility] [place] [facility] Mar 19, 2021 02:00 PM VA-TOBACCO FORMER USER [facility] [place] [facility] Mar 19, 2021 02:00 PM VA-TOBACCO QUIT < 1 YEAR [facility] [place] [facility] Sep 20, 2018 11:24 AM VA-TOBACCO USE DECLINED TO ANSWER [facility] [place] [facility] Oct 21, 2017 08:13 AM QUIT TOBACCO USE IN PAST YEAR [facility] [place] [facility] Dec 30, 2016 08:28 AM QUIT TOBACCO USE 1-7 YEARS AGO [facility] [place] [facility] Jun 04, 2016 08:43 AM QUIT TOBACCO USE 1-7 YEARS AGO [facility] [place] [facility] May 17, 2015 08:45 AM QUIT TOBACCO USE 1-7 YEARS AGO quit 2 years ago. [facility] [place] [facility] Jun 07, 2014 09:25 AM QUIT TOBACCO USE 1-7 YEARS AGO [facility] [place] [facility] November 30, 2013 08:44 AM QUIT TOBACCO USE IN PAST YEAR [facility] [place] [facility] May 22, 2013 10:10 AM QUIT TOBACCO USE IN PAST YEAR [facility] [place] [facility] December 01, 2012 01:54 PM QUIT TOBACCO USE IN PAST YEAR [facility] [place] [facility] Jun 07, 2012 08:16 AM V1-PT DECLINES TOBACCO CESSATION MEDS [facility] [place] [facility] Jun 07, 2012 08:16 AM V1-PT THINKING ABOUT QUIT [facility] [place] [facility] Jan 05, 2012 09:00 AM CURRENT SMOKER intermittenly [facility] [place] [facility] Jan 05, 2012 09:00 AM V1-PT DECLINES REF TO TOBACCO CESS [facility] [place] [facility] Jan 05, 2012 09:00 AM V1-PT DECLINES TOBACCO CESSATION MEDS [facility] [place] [facility] Jan 05, 2012 09:00 AM V1-PT THINKING ABOUT QUIT TOBACCO USE [place] [facility] [place] [facility] Feb 17, 2011 09:52 AM V1-PT DECLINES TOBACCO CESSATION MEDS [facility] [place] [facility] Feb 17, 2011 09:52 AM V1-PT THINKING ABOUT QUIT TOBACCO USE [facility] [place] [facility] Aug 13, 2010 11:31 AM QUIT TOBACCO USE IN PAST YEAR [facility] [place] [facility] Feb 19, 2010 01:26 PM QUIT TOBACCO USE IN PAST YEAR [facility] [place] [facility] Sep 13, 2009 11:04 AM QUIT TOBACCO USE IN PAST YEAR [facility] [place] [facility] Feb 05, 2009 08:29 AM V1-PT DECLINES REF TO TOBACCO CESS [facility] [place] [facility] Feb 05, 2009 08:29 AM V1-PT DECLINES TOBACCO CESSATION MEDS [facility] [place] [facility] Feb 05, 2009 08:29 AM V1-PT THINKING ABOUT QUIT TOBACCO USE [facility] Aug 22, 2008 09:04 AM QUIT TOBACCO USE IN PAST YEAR [facility] Mar 12, 2008 10:40 AM V1-PT DECLINES REF TO TOBACCO CESS PRGM [facility] Mar 12, 2008 10:40 AM V1-PT DECLINES TOBACCO CESSATION MEDS [facility] Mar 12, 2008 10:40 AM V1-PT NOT INTERESTED IN QUIT TOBACCO USE [facility] Mar 08, 2008 09:37 AM CURRENT SMOKER smokes one pack a day for about 10 years ago. [facility] Encounter Notes: All associated encounter notes This section contains the clinical notes associated to the Encounter. Date/Time Encounter Note(s) Provider Source Nov 04, 2023 11:07 AM ACCOUNTING OF DISCLOSURES NOTE: LOCAL TITLE: ON LICENSE OF [facility] PRESCRIPTION DRUG MONITORING PROGRAM STANDARD TITLE: ACCOUNTING [...] information was shared with the PDMP Appriss [place]. Prescription(s) filled outside the [place] in the last 90 days are noted. However, they do not raise significant safety concerns and do not influence the treatment plan at this time. Clonazepam 0.5 mg 5 pills on 10/[address] Grewal filled at [facility]. /divya/ Gal Madsen MD STAFF PHYSICIAN Signed: 11/04/2023 11:07 Receipt Acknowledged By: 11/04/2023 13:30 /divya/ JAMIE HAWKINS JR, MD STAFF PSYCHIATRIST GAL MADSEN [facility] Oct 06, 2023 07:59 AM PAIN MEDICINE OUTPATIENT NOTE: LOCAL TITLE: PAIN CLINIC NOTE STANDARD TITLE: PAIN MEDICINE OUTPATIENT NOTE DATE OF NOTE: OCT 06, 2023@07:59 ENTRY DATE: OCT 06, 2023@07:59:17 AUTHOR: GAL MADSEN COSIGNER: URGENCY: STATUS: COMPLETED [facility] Video Connect (VVC) Standard Documentation VVC Clinician Resources Only: E911 (Emergency Call Relay Center): [phone] National Veterans Crisis Line - 988 then press #1. CWM Suicide Coordinator [phone], Ext. [phone]; Back-up Ext. [phone] [place] Police, JOE, [place] [phone] Introduction: Visit is being conducted by [place] [facility]. identified with 2 identifiers: [X] Full Name [X] Date of [ ] VA ID Card Emergency Plan: confirmed and/or provided the following information in case of emergency or technology failure. PATIENT PHONE - PHONE NUMBER [CELLULAR] - Is patient phone number correct, if not, enter below: 's phone number: REID SAMPLE [address] [place], [place], [address] 's present location and address for appointment: as above [place]'s emergency contact name and phone number: as in chart [place] reported that location is private and safe: Yes Informed Consent: informed of the risks and benefits of Telehealth video care. [place] has the right to refuse video services. If refuses video visit, a [id number] visit will be scheduled verbalized consent for [...] on right leg. [facility] is seeing [facility] for left leg issues; it [...] TOXOID 0.5ML ACTIVE INTRAMUSCULARLY NOW 6) Non-VA [id number]/VILANTEROL 25MCG 30D INH 1 ACTIVE INHALATION BY [...] back seat of her van into the [facility]. She was admitted to [facility] and treated for a large left leg [...] D supplement for reported deficiency noted at [facility]; she has upcoming endocrine follow up and will discuss this with animal anatomy teacher. 3. UDS tomorrow. 4. Will continue same dose of buprenorphine 2 mg qid. 5. f/u as already scheduled 11/09/23. /divya/ Gal Madsen MD STAFF PHYSICIAN Signed: 10/06/2023 10:21 [place]ADSEN [place] [facility]
--- OUTSIDE RECORDS SUMMARY | 2024-07-25 11:25 | XMS_ITS ---
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 Address [address] [place] [id number] Care Team Providers Care Educational Therapy Teacher Name Role Phone ROMANA CASTILLO Primary [...] Name Patient's Relationship to Policy Garcia [facility] (MEDICAID) [facility] May 14, 2009 [id number] SAMPLE,ROCCO MOORE PATIENT [facility] MEDICAID [facility] HUMAN [facility] May 14, 2009 [id number] SAMPLE,ROCCO MOORE PATIENT MEDICAID MEDICAID [facility] Jul 26, 2018 MEDICAI D [id number] SAMPLE,ROCCO MOORE PATIENT MEDICARE (WNR) MEDICARE (M) PART A November 24, 2015 PART A [id number] SAMPLE,ROCCO MOORE PATIENT MEDICARE (WNR) MEDICARE (M) PART B November 24, 2015 PART B [id number] [phone] ROCCO QUEZADA PATIENT Selected Encounter This [...] - MEDICINE [place] [facility] [place] [facility] Nov 09, 2023 09:00 AM AMBULATORY - MEDICINE [place] [facility] [place] [facility] Nov 17, 2023 09:30 AM AMBULATORY - MEDICINE [place] [facility] [place] [facility] Jan 03, 2024 11:00 AM AMBULATORY - PSYCHIATRY [facility] [place] [facility] Jan 17, 2024 03:00 PM AMBULATORY - MEDICINE [place] [facility] [place] [facility] Jan 26, 2024 09:30 AM AMBULATORY - MEDICINE [place] [facility] [place] [facility] Feb 03, 2024 03:00 PM AMBULATORY - MEDICINE [place] [facility] [place] [facility] Feb 14, 2024 11:00 AM AMBULATORY - PSYCHIATRY [facility] [place] [facility] Mar 06, 2024 09:00 AM AMBULATORY - MEDICINE [place] [facility] [place] [facility] Apr 03, 2024 11:30 AM AMBULATORY - MEDICINE [place] [facility] [place] [facility] Apr 13, 2024 11:00 AM AMBULATORY - PSYCHIATRY [facility] [place] [facility] Apr 13, 2024 02:00 PM AMBULATORY - MEDICINE [place] [facility] [place] [facility] Apr 13, 2024 03:00 PM AMBULATORY - MEDICINE [place] [facility] [place] [facility] [...] 2023 11:00 AM VA-TOBACCO FORMER USER [facility] Tobacco Use History This section includes a history of the smoking, or tobacco-related health factors, that were collected on or before the date of the Encounter. The data comes from the [place] facility where the Encounter took place. Date/Time Smoking Status/Tobac co Use Comment Facility Mar 31, 2023 11:00 AM VA-TOBACCO QUIT 1 TO < 5 YRS [place] [facility] [place] [facility] Mar 25, 2022 10:30 AM VA-TOBACCO NEVER USED [place] [facility] [place] [facility] Mar 19, 2021 02:00 PM VA-TOBACCO FORMER USER [place] [facility] [place] [facility] Mar 19, 2021 02:00 PM VA-TOBACCO QUIT < 1 YEAR [place] [facility] [place] [facility] Sep 20, 2018 11:24 AM VA-TOBACCO USE DECLINED TO ANSWER [place] [facility] [place] [facility] Oct 21, 2017 08:13 AM QUIT TOBACCO USE IN PAST YEAR [place] [facility] [place] [facility] Dec 30, 2016 08:28 AM QUIT TOBACCO USE 1-7 YEARS AGO [place] [facility] [place] [facility] Jun 04, 2016 08:43 AM QUIT TOBACCO USE 1-7 YEARS AGO [place] [facility] [place] [facility] May 17, 2015 08:45 AM QUIT TOBACCO USE 1-7 YEARS AGO quit 2 years ago. [place] [facility] [place] [facility] Jun 07, 2014 09:25 AM QUIT TOBACCO USE 1-7 YEARS AGO [place] [facility] [place] [facility] November 30, 2013 08:44 AM QUIT TOBACCO USE IN PAST YEAR [place] [facility] [place] [facility] May 22, 2013 10:10 AM QUIT TOBACCO USE IN PAST YEAR [place] [facility] [place] [facility] December 01, 2012 01:54 PM QUIT TOBACCO USE IN PAST YEAR [place] [facility] [place] [facility] Jun 07, 2012 08:16 AM V1-PT DECLINES TOBACCO CESSATION MEDS [facility] [place] [facility] Jun 07, 2012 08:16 AM V1-PT THINKING ABOUT QUIT TOBACCO USE [facility] [place] [facility] Jan 05, 2012 09:00 AM CURRENT SMOKER intermittenly [facility] [place] [facility] Jan 05, 2012 09:00 AM V1-PT DECLINES REF TO TOBACCO CESS PRGM [facility] [place] [facility] Jan 05, 2012 09:00 AM V1-PT DECLINES TOBACCO CESSATION MEDS [facility] [place] [facility] [...] IN PAST YEAR [facility] [place] [facility] Feb 19, 2010 01:26 PM QUIT TOBACCO USE IN PAST YEAR [place] [facility] [place] [facility] Sep 13, 2009 11:04 AM QUIT TOBACCO USE IN PAST YEAR [place] [facility] [place] [facility] Feb 05, 2009 08:29 AM V1-PT DECLINES RE[facility]ACCO [facility]ESS [facility] [place] [facility] Feb 05, 2009 08:29 AM V1-PT DECLINES TOBACCO CESSATION MEDS [facility] [place] [facility] Feb 05, 2009 08:29 AM V1-PT THINKING ABOUT QUIT TOBACCO USE [facility] [place] [facility] Aug 22, 2008 09:04 AM QUIT TOBACCO USE IN PAST YEAR [place] [facility] [place] [facility] Mar 12, 2008 10:40 AM V1-PT DECLINES REF TO TOBACCO CESS PRGM [facility] [place] [facility] [...] FABIOLA ARTEAGA EXP COSIGNER: URGENCY: 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 PCP filled out/signed form and it was faxed back to [facility] . Car Repairer Helper confirmed receipt of fax. /divya/ Fabiola Arteaga engineering executive Staff Nurse Signed: 10/14/2023 09:14 FABIOLA ARTEAGA [facility]
--- OUTSIDE RECORDS SUMMARY | 2024-07-25 11:25 | XMS_ITS | Encounter Summary ---
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 Address [address] [place] [id number] Care Team Providers Care Operations Systems Specialist Name Role Phone ROMANA CASTILLO Primary [...] Relationship to Policy Garcia [facility] (MEDICAID) [facility]ICAID [facility] May 14, 2009 [id number] SAMPLE,ROCCO MOORE PATIENT [facility] MEDICAID [facility] May 14, 2009 [id number] SAMPLE,ROCCO MOORE PATIENT MEDICAID MEDICAID [facility] Jul 26, 2018 MEDICAI D [id number] SAMPLE,ROCCO MOORE PATIENT MEDICARE (WNR) MEDICARE (M) PART A November 24, 2015 PART A [id number] SAMPLE,ROCCO MOORE PATIENT MEDICARE (WNR) MEDICARE (M) PART B November 24, 2015 PART B [id number] [phone] ROCCO QUEZADA PATIENT Selected Encounter This [...] The data comes from all [place] treatment facilities. Appointment Date/Time Appointment Type Appointme nt Facility Name Nov 09, 2023 09:00 AM AMBULATORY - MEDICINE [place] [facility] [facility] Nov 17, 2023 09:30 AM AMBULATORY - MEDICINE [place] [facility] [facility] Jan 03, 2024 11:00 AM AMBULATORY - PSYCHIATRY [place] [facility] [place] [facility] Jan 17, 2024 03:00 PM AMBULATORY - MEDICINE [place] [facility] [place] [facility] Jan 26, 2024 09:30 AM AMBULATORY - MEDICINE [place] [facility] [place] [facility] Feb 03, 2024 03:00 PM AMBULATORY - MEDICINE [place] [facility] [facility] Feb 14, 2024 11:00 AM AMBULATORY - PSYCHIATRY [place] [facility] [place] [facility] Mar 06, 2024 09:00 AM AMBULATORY - MEDICINE [place] [facility] [facility] Apr 03, 2024 11:30 AM AMBULATORY - MEDICINE [place] [facility] [facility] Apr 13, 2024 11:00 AM AMBULATORY - PSYCHIATRY [facility] [place] [facility] Apr 13, 2024 02:00 PM AMBULATORY - MEDICINE [place] [facility] [facility] Apr 13, 2024 03:00 PM AMBULATORY - MEDICINE [place] [facility] [place] [facility] [...] place. Date/Time Current Smoking Status Comment Facil [facility] Mar 31, 2023 11:00 AM VA-TOBACCO FORMER USER [facility] Tobacco Use History This section includes a history of the smoking, or tobacco-related health factors, that were collected on or before the date of the Encounter. The data comes from the [place] facility where the Encounter took place. Date/Time Smoking Status/Tobac co Use Comment Facility Mar 31, 2023 11:00 AM VA-TOBACCO QUIT 1 TO < 5 YRS [facility] [place] [facility] Mar 25, 2022 10:30 AM VA-TOBACCO NEVER USED [place] [facility] [place] [facility] Mar 19, 2021 02:00 PM VA-TOBACCO FORMER USER [place] [facility] [place] [facility] Mar 19, 2021 02:00 PM VA-TOBACCO QUIT < 1 YEAR [facility] [place] [facility] Sep 20, 2018 11:24 AM VA-TOBACCO USE DECLINED TO ANSWER [place] [facility] [place] [facility] Oct 21, 2017 08:13 AM QUIT TOBACCO USE IN PAST YEAR [facility] [place] [facility] Dec 30, 2016 08:28 AM QUIT TOBACCO USE 1-7 YEARS AGO [facility] [place] [facility] Jun 04, 2016 08:43 AM QUIT TOBACCO USE 1-7 YEARS AGO CA CNT [facility] [place] [facility] May 17, 2015 08:45 AM QUIT TOBACCO USE 1-7 YEARS AGO quit 2 years ago. [place] [facility] [place] [facility] Jun 07, 2014 09:25 AM QUIT TOBACCO USE 1-7 YEARS AGO [facility] [place] [facility] November 30, 2013 08:44 AM QUIT TOBACCO USE IN PAST YEAR [facility] [place] [facility] May 22, 2013 10:10 AM QUIT TOBACCO USE IN PAST YEAR [facility] [place] [facility] December 01, 2012 01:54 PM QUIT TOBACCO USE IN PAST YEAR [facility] [place] [facility] Jun 07, 2012 08:16 AM V1-PT DECLINES TOBACCO [facility]ESSATION [facility] Jun 07, 2012 08:16 AM V1-PT THINKING ABOUT QUIT TOBACCO USE [facility] [place] [facility] Jan 05, 2012 09:00 AM CURRENT SMOKER intermittenly [facility] [place] [facility] Jan 05, 2012 09:00 AM V1-PT DECLINES REF TO TOBACCO CESS [facility] [place] [facility] Jan 05, 2012 09:00 AM V1-PT DECLINES TOBACCO CESSATION MEDS [facility] [place] [facility] Jan 05, 2012 09:00 AM V1-PT THINKING ABOUT QUIT TOBACCO USE [facility] [place] [facility] Feb 17, 2011 09:52 AM V1-PT DECLINES TOBACCO CESSATION MEDS [facility] [place] [facility] Feb 17, 2011 09:52 AM V1-PT THINKING ABOUT QUIT TOBACCO USE [place] [facility] [place] [facility] Aug 13, 2010 11:31 AM QUIT TOBACCO USE IN PAST YEAR [facility] [place] [facility] Feb 19, 2010 01:26 PM QUIT TOBACCO USE IN PAST YEAR [place] [facility] [place] [facility] Sep 13, 2009 11:04 AM QUIT TOBACCO USE IN PAST YEAR [facility] [place] [facility] Feb 05, 2009 08:29 AM V1-PT DECLINES REF TO TOBACCO CESS [facility] [place] [facility] Feb 05, 2009 08:29 AM V1-PT DECLINES TOBACCO CESSATION MEDS [facility] [place] [facility] Feb 05, 2009 08:29 AM V1-PT THINKING ABOUT QUIT TOBACCO USE [facility] [place] [facility] Aug 22, 2008 09:04 AM QUIT TOBACCO USE IN PAST YEAR [facility] [place] [facility] Mar 12, 2008 10:40 AM V1-PT DECLINES REF TO TOBACCO CESS PRGM [facility] [facility] Mar 12, 2008 10:40 AM V1-PT DECLINES TOBACCO CESSATION MEDS [facility] [place] [facility] Mar 12, 2008 10:40 AM V1-PT NOT INTERESTED IN QUIT TOBACCO [facility] [place] [facility] Mar [...] COMPLETED Patient Name: REID QUEZADA Patient SSN: [id number] Date and time of Appointment No show [...] letter Future Clinic Visits 11/09/2023 09:00 CWM/NO/VVC/PAIN MD 1 12/27/2023 13:30 CWM/NO/MHC/SHRUTHI 01/05/2024 13:00 CWM/NO/PACT 4 /es/ SRIKANTH LORENZ [employer] Operator Signed: 10/25/2023 15:28 SRIKANTH LORENZ [facility]
--- OUTSIDE RECORDS SUMMARY | 2024-07-25 11:25 | XMS_ITS | Encounter Summary ---
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 Address [address] [place] [id number] Care Team Providers Care Last Chalker Name Role Phone ROMANA CASTILLO Primary Care [...] Garcia's Name Patient's Relationship to Policy Garcia [facility] (MEDICAID) [facility] May 14, 2009 [id number] SAMPLE,ROCCO MOORE PATIENT [facility] MEDICAID [facility] May 14, 2009 [id number] SAMPLE,ROCCO MOORE PATIENT MEDICAID MEDICAID [facility] Jul 26, 2018 MEDICAI D [id number] SAMPLE,ROCCO MOORE PATIENT MEDICARE (WNR) MEDICARE (M) PART A November 24, 2015 PART A [id number] [phone] SAMPLE,ROCCO MOORE PATIENT MEDICARE (WNR) MEDICARE (M) PART B November 24, 2015 PART B [id number] ROCCO QUEZADA PATIENT Selected Encounter This [...] - MEDICINE [place] [facility] [place] [facility] Oct 07, 2023 01:00 PM AMBULATORY - PSYCHIATRY [place] [facility] [place] [facility] Oct 25, 2023 11:00 AM AMBULATORY - MEDICINE [place] [facility] [place] [facility] Nov 09, 2023 09:00 AM AMBULATORY - MEDICINE [place] [facility] [place] [facility] Nov 17, 2023 09:30 AM AMBULATORY - MEDICINE [place] [facility] [place] [facility] Jan 03, 2024 11:00 AM AMBULATORY - PSYCHIATRY [facility] [place] [facility] Jan 17, 2024 03:00 PM AMBULATORY - MEDICINE [place] [facility] [place] [facility] Jan 26, 2024 09:30 AM AMBULATORY - MEDICINE [place] [facility] [place] [facility] Feb 03, 2024 03:00 PM AMBULATORY - MEDICINE [place] [facility] [place] [facility] Feb 14, 2024 11:00 AM AMBULATORY - PSYCHIATRY [facility] [place] [facility] Mar 06, 2024 09:00 AM AMBULATORY - MEDICINE [place] [facility] [place] [facility] Apr 03, 2024 11:30 AM AMBULATORY - MEDICINE [place] [facility] [place] [facility] Social History: Smoking Status (Most current) [...] AM VA-TOBACCO [facility]ER [facility] Tobacco Use History This section includes a history of the smoking, or tobacco-related health factors, that were collected on or before the date of the Encounter. The data comes from the [place] facility where the Encounter took place. Date/Time Smoking Status/Tobac co Use Comment Facility Mar 31, 2023 11:00 AM VA-TOBACCO QUIT 1 TO < 5 YRS [place] [facility] [place] [facility] Mar 25, 2022 10:30 AM VA-TOBACCO NEVER USED [place] [facility] [place] [facility] Mar 19, 2021 02:00 PM VA-TOBACCO FORMER USER [place] [facility] [place] [facility] Mar 19, 2021 02:00 PM VA-TOBACCO QUIT < 1 YEAR [place] [facility] [place] [facility] Sep 20, 2018 11:24 AM VA-TOBACCO USE DECLINED TO ANSWER [place] [facility] [place] [facility] Oct 21, 2017 08:13 AM QUIT TOBACCO USE IN PAST YEAR [place] [facility] [place] [facility] Dec 30, 2016 08:28 AM QUIT TOBACCO USE 1-7 YEARS AGO [place] [facility] [place] [facility] Jun 04, 2016 08:43 AM QUIT TOBACCO USE 1-7 YEARS AGO [place] [facility] [place] [facility] May 17, 2015 08:45 AM QUIT TOBACCO USE 1-7 YEARS AGO quit 2 years ago. [place] [facility] [place] [facility] Jun 07, 2014 09:25 AM QUIT TOBACCO USE 1-7 YEARS AGO [place] [facility] [place] [facility] November 30, 2013 08:44 AM QUIT TOBACCO USE IN PAST YEAR [place] [facility] [place] [facility] May 22, 2013 10:10 AM QUIT TOBACCO USE IN PAST YEAR [place] [facility] [place] [facility] December 01, 2012 01:54 PM QUIT TOBACCO USE IN PAST YEAR [place] [facility] [place] [facility] Jun 07, 2012 08:16 AM V1-PT DECLINES TOBACCO CESSATION MEDS [place] [facility] [place] [facility] Jun 07, 2012 08:16 AM V1-PT THINKING ABOUT QUIT TOBACCO USE [facility] [place] [facility] Jan 05, 2012 09:00 AM CURRENT SMOKER intermittenly [facility] [place] [facility] Jan 05, 2012 09:00 AM V1-PT DECLINES REF TO TOBACCO CESS [facility] [place] [facility] Jan 05, 2012 09:00 AM V1-PT DECLINES TOBACCO CESSATION MEDS [facility] [place] [facility] Jan 05, 2012 09:00 AM V1-PT THINKING ABOUT QUIT TOBACCO USE [facility] [place] [facility] Feb 17, 2011 09:52 AM V1-PT DECLINES TOBACCO CESSATION MEDS [place] [facility] [place] [facility] Feb 17, 2011 09:52 AM V1-PT THINKING ABOUT QUIT TOBACCO USE [place] [facility] [place] [facility] Aug 13, 2010 11:31 AM QUIT TOBACCO [facility]ST [facility] [place] [facility] Feb 19, 2010 01:26 PM QUIT TOBACCO USE IN PAST YEAR [facility] [place] [facility] Sep 13, 2009 11:04 AM QUIT TOBACCO USE IN PAST YEAR [facility] [place] [facility] Feb 05, 2009 08:29 AM V1-PT DECLINES REF TO TOBACCO CESS PRGM [facility] [place] [facility] Feb 05, 2009 08:29 AM V1-PT DECLINES TOBACCO CESSATION MEDS [facility] [place] [facility] Feb 05, 2009 08:29 AM V1-PT THINKING ABOUT QUIT TOBACCO USE [facility] [place] [facility] Aug 22, 2008 09:04 AM QUIT TOBACCO USE IN PAST YEAR [place] [facility] [place] [facility] Mar 12, 2008 10:40 AM V1-PT DECLINES REF TO TOBACCO CESS PRGM [facility] [place] [facility] Mar 12, 2008 10:40 AM V1-PT DECLINES TOBACCO CESSATION MEDS [place] [facility] [place] [facility] Mar 12, 2008 10:40 AM V1-PT NOT INTERESTED IN QUIT TOBACCO USE [facility] [place] [facility] Mar 08, 2008 09:37 AM [...] LORI QUEVEDO Signed: 10/05/2023 09:51 LORI QUEVEDO [facility]
--- OUTSIDE RECORDS SUMMARY | 2024-07-25 11:26 | XMS_ITS | Encounter Summary ---
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 Address [address] [place] [id number] Care Team Providers Care Sandal Parts Assembler Name Role Phone ROMANA CASTILLO Primary [...] Garcia's Name Patient's Relationship to Policy Garcia [facility] (MEDICAID) [facility] May 14, 2009 [id number] SAMPLE,ROCCO MOORE PATIENT [facility] May 14, 2009 [id number] SAMPLE,ROCCO MOORE PATIENT MEDICAID MEDICAID [facility] [place] Jul 26, 2018 MEDICAI D [id number] SAMPLE,ROCCO MOORE PATIENT MEDICARE (WNR) MEDICARE (M) PART A November 24, 2015 PART A [id number] SAMPLE,ROCCO MOORE PATIENT MEDICARE (WNR) MEDICARE (M) PART B November 24, 2015 PART B [id number] ROCCO QUEZADA PATIENT Selected Encounter This [...] - MEDICINE [facility] [place] [facility] Nov 17, 2023 09:30 AM AMBULATORY - MEDICINE [facility] [place] [facility] Jan 03, 2024 11:00 AM AMBULATORY - PSYCHIATRY [facility] [place] [facility] Jan 17, 2024 03:00 PM AMBULATORY - MEDICINE [facility] [place] [facility] Jan 26, 2024 09:30 AM AMBULATORY - MEDICINE [facility] [place] [facility] Feb 03, 2024 03:00 PM AMBULATORY - MEDICINE [facility] [place] [facility] Feb 14, 2024 11:00 AM AMBULATORY - PSYCHIATRY [facility] [place] [facility] Mar 06, 2024 09:00 AM AMBULATORY - MEDICINE [facility] [place] [facility] Apr 03, 2024 11:30 AM AMBULATORY - MEDICINE [facility] [facility] Apr 13, 2024 11:00 AM AMBULATORY - PSYCHIATRY [facility] [place] [facility] Apr 13, 2024 02:00 PM AMBULATORY - MEDICINE [facility] [place] [facility] Apr 13, 2024 03:00 PM AMBULATORY - MEDICINE [facility] [place] [facility] May 02, 2024 11:00 AM AMBULATORY - MEDICINE [place] [facility] [place] [facility] Social History: Smoking Status (Most current) and [...] 11:00 AM VA-TOBACCO FORMER [facility]ER [facility] Tobacco Use History This section includes a history of the smoking, or tobacco-related health factors, that were collected on or before the date of the Encounter. The data comes from the [place] facility where the Encounter took place. Date/Time Smoking Status/Tobac co Use Comment Facility Mar 31, 2023 11:00 AM VA-TOBACCO QUIT 1 TO < 5 YRS [place] [facility] [place] [facility] Mar 25, 2022 10:30 AM VA-TOBACCO NEVER USED [place] [facility] [place] [facility] Mar 19, 2021 02:00 PM VA-TOBACCO FORMER USER [place] [facility] [place] [facility] Mar 19, 2021 02:00 PM VA-TOBACCO QUIT < 1 YEAR [place] [facility] [place] [facility] Sep 20, 2018 11:24 AM VA-TOBACCO USE DECLINED TO ANSWER [place] [facility] [place] [facility] Oct 21, 2017 08:13 AM QUIT TOBACCO USE IN PAST YEAR [place] [facility] [place] [facility] Dec 30, 2016 08:28 AM QUIT TOBACCO USE 1-7 YEARS AGO [place] [facility] [place] [facility] Jun 04, 2016 08:43 AM QUIT TOBACCO USE 1-7 YEARS AGO [place] [facility] [place] [facility] May 17, 2015 08:45 AM QUIT TOBACCO USE 1-7 YEARS AGO quit 2 years ago. [place] [facility] [place] [facility] Jun 07, 2014 09:25 AM QUIT TOBACCO USE 1-7 YEARS AGO [place] [facility] [place] [facility] November 30, 2013 08:44 AM QUIT TOBACCO USE IN PAST YEAR [place] [facility] [place] [facility] May 22, 2013 10:10 AM QUIT TOBACCO USE IN PAST YEAR [place] [facility] [place] [facility] December 01, 2012 01:54 PM QUIT TOBACCO USE IN PAST YEAR [place] [facility] [place] [facility] Jun 07, 2012 08:16 AM V1-PT DECLINES TOBACCO CESSATION MEDS [facility] [place] [facility] Jun 07, 2012 08:16 AM V1-PT THINKING ABOUT QUIT TOBACCO USE [facility] [place] [facility] Jan 05, 2012 09:00 AM CURRENT SMOKER intermittenly [facility] [place] [facility] Jan 05, 2012 09:00 AM V1-PT DECLINES REF TO TOBACCO CESS PRGM [facility] [place] [facility] Jan 05, 2012 09:00 AM V1-PT DECLINES TOBACCO CESSATION MEDS [facility] [place] [facility] Jan 05, 2012 09:00 AM V1-PT THINKING ABOUT QUIT TOBACCO USE [facility] [place] [facility] Feb 17, 2011 09:52 AM V1-PT DECLINES TOBACCO CESSATION MEDS [facility] [place] [facility] Feb 17, 2011 09:52 AM V1-PT THINKING ABOUT QUIT TOBACCO USE [facility] [place] [facility] Aug 13, 2010 11:31 AM QUIT TOBACCO USE IN PAST YEAR [facility] [place] [facility] Feb 19, 2010 01:26 PM QUIT TOBACCO USE IN PAST YEAR [place] [facility] [place] [facility] Sep 13, 2009 11:04 AM QUIT TOBACCO USE IN PAST YEAR [place] [facility] [place] [facility] Feb 05, 2009 08:29 AM V1-PT DECLINES REF TO TOBACCO CESS [facility] [place] [facility] Feb 05, 2009 08:29 AM V1-PT DECLINES TOBACCO CESSATION MEDS [facility] [place] [facility] Feb 05, 2009 08:29 AM V1-PT THINKING ABOUT QUIT TOBACCO USE [facility] [place] [facility] Aug 22, 2008 09:04 AM QUIT TOBACCO USE IN PAST YEAR [place] [facility] [place] [facility] Mar 12, 2008 10:40 AM V1-PT DECLINES REF TO TOBACCO CESS PRGM [facility] [place] [facility] Mar 12, 2008 10:40 AM V1-PT DECLINES TOBACCO CESSATION MEDS [facility] [place] [facility] Mar 12, 2008 10:40 AM V1-PT NOT INTERESTED IN QUIT TOBACCO USE [facility] [place] [facility] Mar 08, 2008 09:37 AM CURRENT SMOKER smokes one pack a day for about 10 years ago. [facility] Encounter Notes: All associated encounter notes [...] 11/09/2023 at 9am. 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
--- OUTSIDE RECORDS SUMMARY | 2024-07-25 11:26 | XMS_ITS | Encounter Summary ---
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 Address [address] [place] [address] Care Team Providers Care Stock Broker Supervisor Name Role Phone ROMANA CASTILLO Primary [...] Garcia [facility] (MEDICAID) [facility]ID [facility] May 14, 2009 [id number] SAMPLE,ROCCO MOORE PATIENT [facility] MEDICAID [facility]UM[facility] May 14, 2009 [id number] SAMPLE,ROCCO MOORE PATIENT MEDICAID MEDICAID [facility] Jul 26, 2018 MEDICAI D [id number] SAMPLE,ROCCO MOORE PATIENT MEDICARE (WNR) MEDICARE (M) PART A November 24, 2015 PART A [id number] SAMPLE,ROCCO MOORE PATIENT MEDICARE (WNR) MEDICARE (M) PART B November 24, 2015 PART B [id number] ROCCO QUEZADA PATIENT Selected Encounter This section includes the information on record at [place] for the Encounter. Date/Time Encounter Type Encounter Description Reason Pro vider Source Oct 19, 2023 12:00 AM Outpatient Encounter EVENT (HISTORICAL) [facility] Encounter Template Text not used by [place] Plan of Treatment: Future Appointments (+ 6 months) and Future Tests (+/- 45 days) The Plan of Treatment section includes future care activities for the patient from all [place] treatmentfacilities. This section includes future appointments and future orders which are active, pending or scheduled. Future Appointments This section includes appointments that were scheduled to occur 6 months from the date of the Encounter, up to a maximum of 20 appointments. The data comes from all [place] treatment facilities. Appointment Date/Time Appointment Type Appointme nt Facility Name Oct 25, 2023 11:00 AM AMBULATORY - MEDICINE [place] [facility] [place] [facility] Nov 09, 2023 09:00 AM AMBULATORY - MEDICINE [place] [facility] [place] [facility] Nov 17, 2023 09:30 AM AMBULATORY - MEDICINE [place] [facility] [place] [facility] Jan 03, 2024 11:00 AM AMBULATORY - PSYCHIATRY [facility] [place] [facility] Jan 17, 2024 03:00 PM AMBULATORY - MEDICINE [place] [facility] [place] [facility] Jan 26, 2024 09:30 AM AMBULATORY - MEDICINE [place] [facility] [place] [facility] Feb 03, 2024 03:00 PM AMBULATORY - MEDICINE [place] [facility] [facility] Feb 14, 2024 11:00 AM AMBULATORY - PSYCHIATRY [facility] [place] [facility] Mar 06, 2024 09:00 AM AMBULATORY - MEDICINE [facility] [place] [facility] Apr 03, 2024 11:30 AM AMBULATORY - MEDICINE [place] [facility] [place] [facility] Apr 13, 2024 11:00 AM AMBULATORY - PSYCHIATRY [facility] [place] [facility] Apr 13, 2024 02:00 PM AMBULATORY - MEDICINE [facility] [place] [facility] Apr 13, 2024 03:00 PM AMBULATORY - MEDICINE [place] [facility] [place] [facility] Social History: Smoking Status (Most current) and Tobacco Use (All prior to encounter date) This section includes the most current, and the historical, smoking and tobacco- related health factors from the [place] facility where the Encounter took place. Current Smoking Status This section includes the most current smoking, or tobacco-related health factor, from the [place] facility where the Encounter took place. Date/Time Current Smoking Status Comment Rosana humphrey Mar 31, 2023 11:00 AM VA-TOBACCO QUIT 1 TO < 5 YRS [facility] Tobacco Use History This section includes a history of the smoking, or tobacco-related health factors, that were collected on or before the date of the Encounter. The data comes from the [place] facility where the Encounter took place. Date/Time Smoking Status/Tobac co Use Comment Facility Mar 31, 2023 11:00 AM VA-TOBACCO QUIT 1 TO < 5 YRS [place] [facility] [place] [facility] Mar 25, 2022 10:30 AM VA-TOBACCO NEVER USED [place] [facility] [place] [facility] Mar 19, 2021 02:00 PM VA-TOBACCO FORMER USER [place] [facility] [place] [facility] Mar 19, 2021 02:00 PM VA-TOBACCO QUIT < 1 YEAR [place] [facility] [place] [facility] Sep 20, 2018 11:24 AM VA-TOBACCO USE DECLINED TO ANSWER [place] [facility] [place] [facility] Oct 21, 2017 08:13 AM QUIT TOBACCO USE IN PAST YEAR [place] [facility] [place] [facility] Dec 30, 2016 08:28 AM QUIT TOBACCO USE 1-7 YEARS AGO [place] [facility] [place] [facility] Jun 04, 2016 08:43 AM QUIT TOBACCO USE 1-7 YEARS AGO [place] [facility] [place] [facility] May 17, 2015 08:45 AM QUIT TOBACCO USE 1-7 YEARS AGO quit 2 years ago. [place] [facility] [place] [facility] Jun 07, 2014 09:25 AM QUIT TOBACCO USE 1-7 YEARS AGO [place] [facility] [place] [facility] November 30, 2013 08:44 AM QUIT TOBACCO USE IN PAST YEAR [place] [facility] [place] [facility] May 22, 2013 10:10 AM QUIT TOBACCO USE IN PAST YEAR [place] [facility] [place] [facility] December 01, 2012 01:54 PM QUIT TOBACCO USE IN PAST YEAR [place] [facility] [place] [facility] Jun 07, 2012 08:16 AM V1-PT DECLINES TOBACCO CESSATION MEDS [facility] [place] [facility] Jun 07, 2012 08:16 AM V1-PT THINKING ABOUT QUIT TOBACCO USE [facility] [place] [facility] Jan 05, 2012 09:00 AM CURRENT SMOKER intermittenly [facility] [place] [facility] Jan 05, 2012 09:00 AM V1-PT DECLINES REF TO TOBACCO CESS PRGM [facility] [place] [facility] Jan 05, 2012 09:00 AM V1-PT DECLINES TOBACCO CESSATION MEDS [facility] [place] [facility] Jan 05, 2012 09:00 AM V1-PT THINKING ABOUT QUIT TOBACCO USE [facility] [place] [facility] Feb 17, 2011 09:52 AM V1-PT DECLINES TOBACCO CESSATION MEDS [facility] [place] [facility] Feb 17, 2011 09:52 AM V1-PT THINKING ABOUT QUIT TOBACCO USE [facility] [place] [facility] Aug 13, 2010 11:31 AM QUIT TOBACCO USE IN PAST YEAR [facility] [place] [facility] Feb 19, 2010 01:26 PM QUIT TOBACCO USE IN PAST YEAR [place] [facility] [place] [facility] Sep 13, 2009 11:04 AM QUIT TOBACCO USE IN PAST YEAR [facility] [place] [facility] Feb 05, 2009 08:29 AM V1-PT DECLINES REF TO TOBACCO CESS PRGM [facility] [place] [facility] Feb 05, 2009 08:29 AM V1-PT DECLINES TOBACCO CESSATION MEDS [facility] [place] [facility] Feb 05, 2009 08:29 AM V1-PT THINKING ABOUT QUIT TOBACCO USE [facility] [place] [facility] Aug 22, 2008 09:04 AM QUIT TOBACCO USE IN PAST YEAR [facility] [place] [facility] Mar 12, 2008 10:40 AM V1-PT DECLINES REF TO TOBACCO CESS PRGM [facility] [place] [facility] Mar 12, 2008 10:40 AM V1-PT DECLINES TOBACCO CESSATION MEDS [facility] [place] [facility] Mar 12, 2008 10:40 AM V1-PT NOT INTERESTED IN QUIT TOBACCO USE [facility] [place] [facility] Mar 08, 2008 09:37 AM CURRENT SMOKER smokes one pack a day for about 10 years ago. [facility] Encounter Notes: All associated encounter [...] REQUIRED Electronically Filed: 10/26/2023 by: DAYAN PAULINO JET DYEING MACHINE OPERATOR DAYAN PAULINO [facility]
--- OUTSIDE RECORDS SUMMARY | 2024-07-25 11:26 | XMS_ITS | Encounter Summary ---
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 Address [address] [place] [id number] Care Team Providers Care Tree Shear Operator Name Role Phone ROMANA CASTILLO Primary [...] Policy Garcia [facility] (MEDICAID) [facility]ID [facility] May 14, 2009 [id number] SAMPLE,ROCCO MOORE PATIENT [facility] MEDICAID [facility] May 14, 2009 [id number] SAMPLE,ROCCO MOORE PATIENT MEDICAID MEDICAID [facility] [place] Jul 26, 2018 MEDICAI D [id number] SAMPLE,ROCCO MOORE PATIENT MEDICARE (WNR) MEDICARE (M) PART A November 24, 2015 PART A [id number] SAMPLE,ROCCO MOORE PATIENT MEDICARE (WNR) MEDICARE (M) PART B November 24, 2015 PART B [id number] ROCCO QUEZADA PATIENT Selected Encounter This [...] - MEDICINE [facility] [place] [facility] Nov 17, 2023 09:30 AM AMBULATORY - MEDICINE [facility] [place] [facility] Jan 03, 2024 11:00 AM AMBULATORY - PSYCHIATRY [facility] [place] [facility] Jan 17, 2024 03:00 PM AMBULATORY - MEDICINE [facility] [place] [facility] Jan 26, 2024 09:30 AM AMBULATORY - MEDICINE [facility] [place] [facility] Feb 03, 2024 03:00 PM AMBULATORY - MEDICINE [facility] [place] [facility] Feb 14, 2024 11:00 AM AMBULATORY - PSYCHIATRY [facility] [place] [facility] Mar 06, 2024 09:00 AM AMBULATORY - MEDICINE [facility] [place] [facility] Apr 03, 2024 11:30 AM AMBULATORY - MEDICINE [facility] [place] [facility] Apr 13, 2024 11:00 AM AMBULATORY - PSYCHIATRY [facility] [place] [facility] Apr 13, 2024 02:00 PM AMBULATORY - MEDICINE [facility] [place] [facility] Apr 13, 2024 03:00 PM AMBULATORY - MEDICINE [facility] [place] [facility] May 02, 2024 11:00 AM AMBULATORY - MEDICINE [place] [facility] [place] [facility] Social History: Smoking [...] 2023 11:00 AM VA-TOBACCO FORMER USER [facility] Tobacco Use History This section includes a history of the smoking, or tobacco-related health factors, that were collected on or before the date of the Encounter. The data comes from the [place] facility where the Encounter took place. Date/Time Smoking Status/Tobac co Use Comment Facility Mar 31, 2023 11:00 AM VA-TOBACCO QUIT 1 TO < 5 YRS [place] [facility] [place] [facility] Mar 25, 2022 10:30 AM VA-TOBACCO NEVER USED [place] [facility] [place] [place] [facility] Mar 19, 2021 02:00 PM VA-TOBACCO FORMER USER [place] [facility] [place] [place] [facility] Mar 19, 2021 02:00 PM VA-TOBACCO QUIT < 1 YEAR [place] [facility] [place] [facility] Sep 20, 2018 11:24 AM VA-TOBACCO USE DECLINED TO ANSWER [place] [facility] [place] [place] [facility] Oct 21, 2017 08:13 AM QUIT TOBACCO USE IN PAST YEAR [place] [facility] [place] [facility] Dec 30, 2016 08:28 AM QUIT TOBACCO USE 1-7 YEARS AGO [place] [facility] [place] [place] [facility] Jun 04, 2016 08:43 AM QUIT TOBACCO USE 1-7 YEARS AGO [place] [facility] [place] [place] [facility] May 17, 2015 08:45 AM QUIT TOBACCO USE 1-7 YEARS AGO quit 2 years ago. [place] [facility] [place] [facility] Jun 07, 2014 09:25 AM QUIT TOBACCO USE 1-7 YEARS AGO [place] [facility] [place] [place] [facility] November 30, 2013 08:44 AM QUIT TOBACCO USE IN PAST YEAR [place] [facility] [place] [facility] May 22, 2013 10:10 AM QUIT TOBACCO USE IN PAST YEAR [place] [facility] [place] [place] [facility] December 01, 2012 01:54 PM QUIT TOBACCO USE IN PAST YEAR [place] [facility] [place] [facility] Jun 07, 2012 08:16 AM V1-PT DECLINES TOBACCO CESSATION MEDS [facility] [place] [facility] Jun 07, 2012 08:16 AM V1-PT THINKING ABOUT QUIT TOBACCO USE [facility] [place] [facility] Jan 05, 2012 09:00 AM CURRENT SMOKER intermittenly [facility] [place] [facility] Jan 05, 2012 09:00 AM V1-PT DECLINES REF TO TOBACCO CESS PRGM [facility] [place] [facility] Jan 05, 2012 09:00 AM V1-PT DECLINES TOBACCO CESSATION MEDS [facility] [place] [facility] Jan 05, 2012 09:00 AM V1-PT THINKING ABOUT QUIT TOBACCO USE [facility] [place] [facility] Feb 17, 2011 09:52 AM V1-PT DECLINES TOBACCO CESSATION MEDS [facility] [place] [facility] Feb 17, 2011 09:52 AM V1-PT THINKING ABOUT QUIT TOBACCO USE [facility] [place] [facility] Aug 13, 2010 11:31 AM QUIT TOBACCO USE IN PAST YEAR [facility] [place] [facility] Feb 19, 2010 01:26 PM QUIT TOBACCO USE IN PAST YEAR [place] [facility] [place] [facility] Sep 13, 2009 11:04 AM QUIT TOBACCO USE IN PAST YEAR [place] [facility] [place] [facility] Feb 05, 2009 08:29 AM V1-PT DECLINES REF TO TOBACCO CESS [facility] [place] [facility] Feb 05, 2009 08:29 AM V1-PT DECLINES TOBACCO CESSATION MEDS [facility] [place] [facility] Feb 05, 2009 08:29 AM V1-PT THINKING ABOUT QUIT TOBACCO USE [facility] [place] [facility] Aug 22, 2008 09:04 AM QUIT TOBACCO USE IN PAST YEAR [place] [facility] [facility] Mar 12, 2008 10:40 AM V1-PT DECLINES REF TO TOBACCO CESS PRGM [facility] [place] [facility] Mar 12, 2008 10:40 AM V1-PT DECLINES TOBACCO CESSATION MEDS [facility] [place] [facility] Mar 12, 2008 10:40 AM V1-PT NOT INTERESTED IN QUIT TOBACCO USE [facility] [place] [facility] Mar 08, 2008 09:37 AM CURRENT SMOKER smokes one pack a day for about 10 years ago. [facility] Encounter Notes: All associated encounter [...] STATUS: COMPLETED TELEPHONE NOTE/[facility] Has ADDENDA [place] called asking for refill on Oxycodone. She is going to run out on Wednesday11/06/2023. She has [facility] appt scheduled 11/09/[address] Solorio. She is asking for refill at least to hold her over until 11/08 if possible. Please advise /divya/ BEULAH LOPEZ [employer] Signed: 11/04/2023 10:17 Receipt Acknowledged By: 11/04/2023 11:01 /divya/ Gal Solorio MD STAFF PHYSICIAN 11/04/2023 11:42 /es/ URBANO FOSTER, PHARM.D CLINICAL PHARMACIST PRACTITIONER 11/04/2023 ADDENDUM STATUS: COMPLETED medication ordered at slightly decreased dose. can be picked up on 11/04. /divya/ Gal Solorio MD STAFF PHYSICIAN Signed: 11/04/2023 11:05 11/04/2023 ADDENDUM STATUS: COMPLETED Artificial Candy Maker called vet to notify her that med refilled at lower dose and can be picked up 11/05/2023 /isabella LOPEZ [employer]ER Signed: 11/04/2023 11:25 BEULAH LOEPZ [facility]
--- OUTSIDE RECORDS SUMMARY | 2024-07-25 11:26 | XMS_ITS | Encounter Summary ---
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 Address [address] [place] [id number] Care Team Providers Care Ground Wirer Name Role Phone ROMANA CASTILLO Primary Care [...] Relationship to Policy Garcia [facility] (MEDICAID) [facility]ID [facility] May 14, 2009 [id number] SAMPLE,ROCCO MOORE PATIENT [facility] MEDICAID [facility] May 14, 2009 [id number] SAMPLE,ROCCO MOORE PATIENT MEDICAID MEDICAID [facility] [place] Jul 26, 2018 MEDICAI D [id number] SAMPLE,ROCCO MOORE PATIENT MEDICARE (WNR) MEDICARE (M) PART A November 24, 2015 PART A [id number] SAMPLE,ROCCO MOORE PATIENT MEDICARE (WNR) MEDICARE (M) PART B November 24, 2015 PART B [id number] [id number] ROCCO QUEZADA PATIENT Selected Encounter This [...] - MEDICINE [place] [facility] [facility] Nov 09, 2023 09:00 AM AMBULATORY - MEDICINE [place] [facility] Nov 17, 2023 09:30 AM AMBULATORY - [place]ICINE [place] [facility] Jan 03, 2024 11:00 AM AMBULATORY - PSYCHIATRY [place] [facility] [facility] Jan 17, 2024 03:00 PM AMBULATORY - [place]ICINE [place] [facility] [facility] Jan 26, 2024 09:30 AM AMBULATORY - [place]ICINE [place] [facility] Feb 03, 2024 03:00 PM AMBULATORY - [place]ICINE [place] [facility] [facility] Feb 14, 2024 11:00 AM AMBULATORY - PSYCHIATRY [facility] [facility] Mar 06, 2024 09:00 AM AMBULATORY - MEDICINE [place] [facility] [place] [facility] Apr 03, 2024 11:30 AM AMBULATORY - [place]ICINE [place] [facility] [facility] Apr 13, 2024 11:00 AM AMBULATORY - PSYCHIATRY [place] [facility] [place] [facility] Apr 13, 2024 02:00 PM AMBULATORY - MEDICINE [place] [facility] [place] [facility] Apr 13, 2024 03:00 PM AMBULATORY - [place]ICINE [place] [facility] [facility] Social History: Smoking Status (Most current) and [...] 2023 11:00 AM VA-TOBACCO [facility] Tobacco Use History This section includes a history of the smoking, or tobacco-related health factors, that were collected on or before the date of the Encounter. The data comes from the [place] facility where the Encounter took place. Date/Time Smoking Status/Tobac co Use Comment Facility Mar 31, 2023 11:00 AM VA-TOBACCO QUIT 1 TO < 5 YRS [place] [facility] [place] [facility] Mar 25, 2022 10:30 AM VA-TOBACCO NEVER USED [place] [facility] [place] [facility] Mar 19, 2021 02:00 PM VA-TOBACCO FORMER USER [place] [facility] [place] [facility] Mar 19, 2021 02:00 PM VA-TOBACCO QUIT < 1 YEAR [place] [facility] [place] [facility] Sep 20, 2018 11:24 AM VA-TOBACCO USE DECLINED TO ANSWER [place] [facility] [place] [facility] Oct 21, 2017 08:13 AM QUIT TOBACCO USE IN PAST YEAR [place] [facility] [place] [facility] Dec 30, 2016 08:28 AM QUIT TOBACCO USE 1-7 YEARS AGO [place] [facility] [place] [facility] Jun 04, 2016 08:43 AM QUIT TOBACCO USE 1-7 YEARS AGO [place] [facility] [place] [facility] May 17, 2015 08:45 AM QUIT TOBACCO USE 1-7 YEARS AGO quit 2 years ago. [place] [facility] [place] [facility] Jun 07, 2014 09:25 AM QUIT TOBACCO USE 1-7 YEARS AGO [place] [facility] [place] [facility] November 30, 2013 08:44 AM QUIT TOBACCO USE IN PAST YEAR [place] [facility] [place] [facility] May 22, 2013 10:10 AM QUIT TOBACCO USE IN PAST YEAR [place] [facility] [place] [facility] December 01, 2012 01:54 PM QUIT TOBACCO USE IN PAST YEAR [place] [facility] [place] [facility] Jun 07, 2012 08:16 AM V1-PT DECLINES TOBACCO CESSATION MEDS [facility] [place] [facility] Jun 07, 2012 08:16 AM V1-PT THINKING ABOUT QUIT TOBACCO USE [facility] [place] [facility] Jan 05, 2012 09:00 AM CURRENT SMOKER intermittenly [facility] [place] [facility] Jan 05, 2012 09:00 AM V1-PT DECLINES REF TO TOBACCO CESS PRGM [facility] [place] [facility] Jan 05, 2012 09:00 AM V1-PT DECLINES TOBACCO CESSATION MEDS [facility] [facility] Jan 05, 2012 09:00 AM V1-PT THINKING ABOUT QUIT TOBACCO USE [facility] [place] [facility] Feb 17, 2011 09:52 AM V1-PT DECLINES TOBACCO CESSATION MEDS [facility] [facility] Feb 17, 2011 09:52 AM V1-PT THINKING ABOUT QUIT TOBACCO USE [facility] [place] [facility] Aug 13, 2010 11:31 AM QUIT TOBACCO USE IN PAST YEAR [place] [facility] [place] [facility] Feb 19, 2010 01:26 PM QUIT TOBACCO USE IN PAST YEAR [place] [facility] [facility] Sep 13, 2009 11:04 AM QUIT TOBACCO USE IN PAST YEAR [place] [facility] [place] [facility] Feb 05, 2009 08:29 AM V1-PT DECLINES REF TO TOBACCO CESS [facility] [place] [facility] Feb 05, 2009 08:29 AM V1-PT DECLINES TOBACCO CESSATION MEDS [facility] [facility] Feb 05, 2009 08:29 AM V1-PT THINKING ABOUT QUIT TOBACCO USE [facility] [facility] Aug 22, 2008 09:04 AM QUIT TOBACCO USE IN PAST YEAR [place] [facility] [place] [facility] Mar 12, 2008 10:40 AM V1-PT DECLINES REF TO TOBACCO CESS PRGM [facility] [facility] Mar 12, 2008 10:40 AM V1-PT DECLINES TOBACCO CESSATION MEDS [facility] [place] [facility] Mar 12, 2008 10:40 AM V1-PT NOT INTERESTED IN QUIT TOBACCO USE [facility] [place] [facility] Mar 08, 2008 09:37 AM CURRENT SMOKER smokes one pack a day for about 10 years ago. [facility] Encounter Notes: All associated encounter notes This section contains the clinical notes associated to the Encounter. Date/Time Encounter Note(s) Provider Source Oct 20, 2023 12:00 AM NONVA NOTE: LOCAL TITLE: NON-[facility] STANDARD TITLE: NONVA NOTE DATE OF NOTE: OCT 20, 2023 ENTRY DATE: OCT 26, 2023@14:45:03 AUTHOR: ANGELA CERRATO EXP COSIGNER: URGENCY: STATUS: COMPLETED VistA Imaging - Scanned Document SCANNED DOCUMENT SIGNATURE NOT REQUIRED Electronically Filed: 10/26/2023 by: ANGELA CERRATO SILVICULTURIST ANGELA CERRATO [facility]
--- OUTSIDE RECORDS SUMMARY | 2024-07-25 11:27 | XMS_ITS | Encounter Summary ---
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 Address [address] [place] [id number] Care Team Providers Care Roller Stitcher Name Role Phone ROMANA CASTILLO Primary Care [...] Policy Garcia [facility] (MEDICAID) [facility] May 14, 2009 [id number] SAMPLE,ROCCO MOORE PATIENT [facility] May 14, 2009 [id number] SAMPLE,ROCCO MOORE PATIENT MEDICAID MEDICAID [facility] [place] Jul 26, 2018 MEDICAI D [id number] SAMPLE,ROCCO MOORE PATIENT MEDICARE (WNR) MEDICARE (M) PART A November 24, 2015 PART A [id number] [id number] SAMPLE,ROCCO MOORE PATIENT MEDICARE (WNR) MEDICARE (M) PART B November 24, 2015 PART B [id number] ROCCO PARSONS PATIENT Selected Encounter This section includes the information on record at [place] for the Encounter. Date/Time Encounter Type Encounter Description Reason Provider Source Nov 15, 2023 09:08 AM Outpatient Encounter TELEPHONE TRIAGE BILLY,ADRIANA DONALDSONEvi BILLEdwin Encounter Template Text not used by [place] [...] - MEDICINE [place] [facility] [place] [facility] Jan 03, 2024 11:00 AM AMBULATORY - PSYCHIATRY [facility] [place] [facility] Jan 17, 2024 03:00 PM AMBULATORY - MEDICINE [place] [facility] [place] [facility] Jan 26, 2024 09:30 AM AMBULATORY - MEDICINE [place] [facility] [place] [facility] Feb 03, 2024 03:00 PM AMBULATORY - MEDICINE [place] [facility] [place] [facility] Feb 14, 2024 11:00 AM AMBULATORY - PSYCHIATRY [place] [facility] [place] [facility] Mar 06, 2024 09:00 AM AMBULATORY - MEDICINE [place] [facility] [facility] Apr 03, 2024 11:30 AM AMBULATORY - MEDICINE [place] [facility] [place] [facility] Apr 13, 2024 11:00 AM AMBULATORY - PSYCHIATRY [place] [facility] [place] [facility] Apr 13, 2024 02:00 PM AMBULATORY - MEDICINE [place] [facility] [place] [facility] Apr 13, 2024 03:00 PM AMBULATORY - MEDICINE [place] [facility] [place] [facility] May 02, 2024 11:00 AM AMBULATORY - MEDICINE [place] [facility] [place] [facility] May 15, 2024 11:30 AM AMBULATORY - PSYCHIATRY [place] [facility] [place] [facility] Social History: Smoking Status (Most [...] 11:00 AM VA-TOBACCO [facility]ER [facility] Tobacco Use History This section includes a history of the smoking, or tobacco-related health factors, that were collected on or before the date of the Encounter. The data comes from the [place] facility where the Encounter took place. Date/Time Smoking Status/Tobac co Use Comment Facility Mar 31, 2023 11:00 AM VA-TOBACCO QUIT 1 TO < 5 YRS [place] [facility] [place] [facility] Mar 25, 2022 10:30 AM VA-TOBACCO NEVER USED [place] [facility] [facility] Mar 19, 2021 02:00 PM VA-TOBACCO FORMER USER [place] [facility] [place] [facility] Mar 19, 2021 02:00 PM VA-TOBACCO QUIT < 1 YEAR [place] [facility] [place] [facility] Sep 20, 2018 11:24 AM VA-TOBACCO USE DECLINED TO ANSWER [place] [facility] [place] [facility] Oct 21, 2017 08:13 AM QUIT TOBACCO USE IN PAST YEAR [place] [facility] [place] [facility] Dec 30, 2016 08:28 AM QUIT TOBACCO USE 1-7 YEARS AGO [place] [facility] [place] [facility] Jun 04, 2016 08:43 AM QUIT TOBACCO USE 1-7 YEARS AGO [place] [facility] [place] [facility] May 17, 2015 08:45 AM QUIT TOBACCO USE 1-7 YEARS AGO quit 2 years ago. [place] [facility] [place] [facility] Jun 07, 2014 09:25 AM QUIT TOBACCO USE 1-7 YEARS AGO [place] [facility] [place] [facility] November 30, 2013 08:44 AM QUIT TOBACCO USE IN PAST YEAR [place] [facility] [place] [facility] May 22, 2013 10:10 AM QUIT TOBACCO USE IN PAST YEAR [place] [facility] [place] [facility] December 01, 2012 01:54 PM QUIT TOBACCO USE IN PAST YEAR [place] [facility] [place] [facility] Jun 07, 2012 08:16 AM V1-PT DECLINES TOBACCO CESSATION MEDS [facility] [place] [facility] Jun 07, 2012 08:16 AM V1-PT THINKING ABOUT QUIT TOBACCO USE [facility] [place] [facility] Jan 05, 2012 09:00 AM CURRENT SMOKER intermittenly [facility] [place] [facility] Jan 05, 2012 09:00 AM V1-PT DECLINES REF TO TOBACCO CESS PRGM [facility] [facility] Jan 05, 2012 09:00 AM V1-PT DECLINES TOBACCO CESSATION MEDS [facility] [place] [facility] Jan 05, 2012 09:00 AM V1-PT THINKING ABOUT QUIT TOBACCO USE [facility] [place] [facility] Feb 17, 2011 09:52 AM V1-PT DECLINES TOBACCO CESSATION MEDS [facility] [place] [facility] Feb 17, 2011 09:52 AM V1-PT THINKING ABOUT QUIT TOBACCO USE [facility] [place] [facility] Aug 13, 2010 11:31 AM QUIT TOBACCO USE IN PAST YEAR [facility] [place] [facility] Feb 19, 2010 01:26 PM QUIT TOBACCO USE IN PAST YEAR [facility] [place] [facility] Sep 13, 2009 11:04 AM QUIT TOBACCO USE IN PAST YEAR [facility] [place] [facility] Feb 05, 2009 08:29 AM V1-PT DECLINES REF TO TOBACCO CESS PRGM [facility] [place] [facility] Feb 05, 2009 08:29 AM V1-PT DECLINES TOBACCO CESSATION MEDS [facility] [place] [facility] Feb 05, 2009 08:29 AM V1-PT THINKING ABOUT QUIT TOBACCO USE [facility] [place] [facility] Aug 22, 2008 09:04 AM QUIT TOBACCO USE IN PAST YEAR [facility] [place] [facility] Mar 12, 2008 10:40 AM V1-PT DECLINES REF TO TOBACCO CESS PRGM [facility] [place] [facility] Mar 12, 2008 10:40 AM V1-PT DECLINES TOBACCO CESSATION MEDS [facility] [place] [facility] Mar 12, 2008 10:40 AM V1-PT NOT INTERESTED IN QUIT TOBACCO USE [facility] [place] [facility] Mar 08, 2008 09:37 AM CURRENT SMOKER smokes one pack a day for about 10 years ago. [facility] Encounter Notes: All associated encounter notes [...] Patient Name: REID QUEZADA Patient Primary Address: [address] [place] [address] Patient Primary Phone: [phone] Patient : 1960 Patient Age: 63 Caller/Recipient Relation to Patient: Self Emergency Contact: HARVEY DRAKE Triage Summary Chief Complaint: Urinary Frequency System WHEN: Within 8 Hours Nurse's Recommendation / WHEN: Within 8 Hours System WHERE: Urgent care center Nurse's Recommendation / WHERE: Urgent [place] Patient Disposition Patient/Caregiver agrees to plan of care: Yes Nursing Plan and Disposition Referred patient to higher level of care Instructed to go to Urgent Care (UC) Provided location of Urgent Care Center Advised of Act UC Benefits Other course(s) of action Generated msg to PACT/Provider Provided guidance for worsening symptoms: *Caller/Patient* advised to call facilities [place] Clinical Contact Center or seek immediate medical attention for new or worsening symptoms Nurse Summary Nurse Summary: [facility] calls reporting ''Im having a UTI, It got really bad last night and Im on chronic Bactrim. I doubled the dose last night in addition to a couple azo's.'' +Chills +Burning +Frequency +Passing ''bloody tissue'' +Increased anxious [facility] reports they were stuck in a car for 12 hours yesterday when sx started to become worse. Hx. chrons with recent flare 5-6 days ago lasting approx. 3 days. Triaged. This RN recommends UC Evaluation: [address] [address] Main number: [phone] [place] Act UC benefit reviewed. Location and contact information provided. PACT post UC follow-up call back requested for further guided plan of care. Verified Ph. [phone] Clinical Contact Center Codes Clinic/Location: V1 [facility] PHONE CCC RN [facility] Triage Complete Triage Date: 11/15/2023 8:05 AM Triage Note: Phone Triage 15 Nov 2023 13:05:25 +0000 [facility] Demographics 63 y/o Female Results CC: [...] within past 3 weeks /divya/ ADRIANA CERVANTES [id number] Signed: 11/15/2023 09:08 Receipt Acknowledged By: 11/15/2023 09:16 /es/ OLGA GREEN, MSN, RN, CNL PRIMARY CARE TEAM NURSE 11/15/2023 09:12 /es/ Fabiola Hooker, cigar wrapper tender automatic Staff Nurse ADRIANA [facility]ERVANTES [place] [facility]
--- OUTSIDE RECORDS SUMMARY | 2024-07-25 11:27 | XMS_ITS | Encounter Summary ---
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 Address [address] [place] [id number] Care Team Providers Care Grid Maker Name Role Phone ROMANA CASTILLO Primary [...] Garcia's Name Patient's Relationship to Policy Garcia [facility] (MEDICAID) [facility] May 14, 2009 [id number] SAMPLE,ROCCO MOORE PATIENT [facility] MEDICAID [facility] HUMAN [facility] May 14, 2009 [id number] SAMPLE,ROCCO MOORE PATIENT MEDICAID MEDICAID [facility] Jul 26, 2018 MEDICAI D [id number] SAMPLE,ROCCO MOORE PATIENT MEDICARE (WNR) MEDICARE (M) PART A November 24, 2015 PART A [id number] SAMPLE,ROCCO MOORE PATIENT MEDICARE (WNR) MEDICARE (M) PART B November 24, 2015 PART B [id number] ROCCO QUEZADA PATIENT Selected Encounter This [...] - MEDICINE [facility] Nov 17, 2023 09:30 AM AMBULATORY - MEDICINE [facility] [place] [facility] Jan 03, 2024 11:00 AM AMBULATORY - PSYCHIATRY [facility] [place] [facility] Jan 17, 2024 03:00 PM AMBULATORY - MEDICINE [facility] [place] [facility] Jan 26, 2024 09:30 AM AMBULATORY - MEDICINE [facility] [place] [facility] Feb 03, 2024 03:00 PM AMBULATORY - MEDICINE [facility] [facility] Feb 14, 2024 11:00 AM AMBULATORY - PSYCHIATRY [facility] [place] [facility] Mar 06, 2024 09:00 AM AMBULATORY - MEDICINE [facility] Apr 03, 2024 11:30 AM AMBULATORY - MEDICINE [facility] Apr 13, 2024 11:00 AM AMBULATORY - PSYCHIATRY [facility] Apr 13, 2024 02:00 PM AMBULATORY - MEDICINE [facility] Apr 13, 2024 03:00 PM AMBULATORY - MEDICINE [facility] May 02, 2024 11:00 AM AMBULATORY - MEDICINE [place] [facility] Social History: Smoking Status [...] 11:00 AM VA-TOBACCO FORMER USER [facility] Tobacco Use History This [...] < 5 YRS [facility] Mar 25, 2022 10:30 AM VA-TOBACCO NEVER USED [facility] Mar 19, 2021 02:00 PM VA-TOBACCO FORMER USER [facility] Mar 19, 2021 02:00 PM VA-TOBACCO QUIT < 1 YEAR [facility] Sep 20, 2018 11:24 AM VA-TOBACCO USE DECLINED TO ANSWER [facility] Oct 21, 2017 08:13 AM QUIT TOBACCO USE IN PAST YEAR [facility] [facility] Dec 30, 2016 08:28 AM QUIT TOBACCO USE 1-7 YEARS AGO [facility] Jun 04, 2016 08:43 AM QUIT TOBACCO USE 1-7 YEARS AGO [facility] May 17, 2015 08:45 AM QUIT TOBACCO USE 1-7 YEARS AGO quit 2 years ago. [facility] Jun 07, 2014 09:25 AM QUIT TOBACCO USE 1-7 YEARS AGO [facility] [facility] November 30, 2013 08:44 AM QUIT TOBACCO USE IN PAST YEAR [facility] [facility] May 22, 2013 10:10 AM QUIT TOBACCO USE IN PAST YEAR [facility] [facility] December 01, 2012 01:54 PM QUIT TOBACCO USE IN PAST YEAR [facility] Jun 07, 2012 08:16 AM V1-PT DECLINES TOBACCO CESSATION MEDS [facility] [facility] Jun 07, 2012 08:16 AM V1-PT THINKING ABOUT QUIT TOBACCO USE [facility] [facility] Jan 05, 2012 09:00 AM CURRENT SMOKER intermittenly [facility] Jan 05, 2012 09:00 AM V1-PT DECLINES REF TO TOBACCO CESS PRGM [facility] Jan 05, 2012 09:00 AM V1-PT DECLINES TOBACCO CESSATION MEDS [facility] Jan 05, 2012 09:00 AM V1-PT THINKING ABOUT QUIT TOBACCO USE [facility] Feb 17, 2011 09:52 AM V1-PT DECLINES TOBACCO CESSATION MEDS [facility] [facility] Feb 17, 2011 09:52 AM V1-PT THINKING ABOUT QUIT TOBACCO USE [facility] [facility] Aug 13, 2010 11:31 AM QUIT TOBACCO USE IN PAST YEAR [facility] [facility] Feb 19, 2010 01:26 PM QUIT TOBACCO USE IN PAST YEAR [place] [facility] [facility] Sep 13, 2009 11:04 AM QUIT TOBACCO USE IN PAST YEAR [place] [facility] Feb 05, 2009 08:29 AM V1-PT DECLINES REF TO [facility]BACCO [facility]ESS [facility] [place] [facility] Feb 05, 2009 08:29 AM V1-PT DECLINES TOBACCO CESSATION MEDS [facility] [place] [facility] Feb 05, 2009 08:29 AM V1-PT THINKING ABOUT QUIT TOBACCO USE [facility] [place] [facility] Aug 22, 2008 09:04 AM QUIT TOBACCO USE IN PAST YEAR [facility] [facility] Mar 12, 2008 10:40 AM V1-PT DECLINES REF TO TOBACCO CESS PRGM [facility] Mar 12, 2008 10:40 AM V1-PT DECLINES TOBACCO CESSATION MEDS [facility] [facility] Mar 12, 2008 10:40 AM V1-PT NOT INTERESTED IN QUIT TOBACCO USE [facility] [facility] Mar 08, 2008 09:37 AM CURRENT SMOKER smokes one pack a day for about 10 years ago. [facility] Encounter Notes: All associated encounter notes This section contains the clinical notes associated to the Encounter. Date/Time Encounter Note(s) Provider Source Nov 01, 2023 12:00 AM NONVA NOTE: LOCAL TITLE: NON-[facility] STANDARD TITLE: NONVA NOTE DATE OF NOTE: NOV 01, 2023 ENTRY DATE: NOV 16, 2023@12:16:22 AUTHOR: JEFF WILLS EXP COSIGNER: URGENCY: STATUS: COMPLETED VistA Imaging - Scanned Document SCANNED DOCUMENT SIGNATURE NOT REQUIRED Electronically Filed: 11/16/2023 by: JEFF WILLS MACHINE MAINTENANCE REPAIRER JEFF WILLS [facility] Nov 01, 2023 12:00 AM NONVA NOTE: LOCAL TITLE: NON-[facility] STANDARD TITLE: NONVA NOTE DATE OF NOTE: NOV 01, 2023 ENTRY DATE: NOV 17, 2023@10:53:46 AUTHOR: DAYAN PAULINO EXP COSIGNER: URGENCY: STATUS: COMPLETED VistA Imaging - Scanned Document SCANNED DOCUMENT SIGNATURE NOT REQUIRED Electronically Filed: 11/17/2023 by: DAYAN PAULINO MACHINE MAINTENANCE REPAIRER DAYAN PAULINO [facility]
--- OUTSIDE RECORDS SUMMARY | 2024-07-25 11:27 | XMS_ITS | Encounter Summary ---
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 Address [address] [place] [id number] Care Team Providers Care Investment Director Name Role Phone ROMANA CASTILLO Primary [...] Garcia's Name Patient's Relationship to Policy Garcia [facility] (MEDICAID) [facility] May 14, 2009 [id number] SAMPLE,ROCCO MOORE PATIENT [facility] MEDICAID [facility] May 14, 2009 [id number] SAMPLE,ROCCO MOORE PATIENT MEDICAID MEDICAID [facility] [place] Jul 26, 2018 MEDICAI D [id number] SAMPLE,ROCCO MOORE PATIENT MEDICARE (WNR) MEDICARE (M) PART A November 24, 2015 PART A [id number] SAMPLE,ROCCO MOORE PATIENT MEDICARE (WNR) MEDICARE (M) PART B November 24, 2015 PART B [id number] ROCCO QUEZADA PATIENT Selected Encounter This section includes the information on record at [place] for the Encounter. Date/Time Encounter Type Encounter Description Reason Pro vider Source Nov 16, 2023 11:08 AM Outpatient Encounter PAIN CLINIC IHE Encounter Template Text not used by [place] Plan of Treatment: Future Appointments (+ 6 months) and Future Tests (+/- 45 days) The Plan of Treatment section includes future care activities for the patient from all [place] treatmentfacilities. This section includes future appointments and future orders which are active, pending or scheduled. Future Appointments This section includes appointments that were scheduled to occur 6 months from the date of the Encounter, up to a maximum of 20 appointments. The data comes from all [place] treatment facilities. Appointment Date/Time Appointment Type Appointme nt Facility Name Nov 17, 2023 09:30 AM AMBULATORY - MEDICINE [place] [facility] [place] [facility] Jan 03, 2024 11:00 AM AMBULATORY - PSYCHIATRY [facility] [place] [facility] Jan 17, 2024 03:00 PM AMBULATORY - MEDICINE [place] [facility] [place] [facility] Jan 26, 2024 09:30 AM AMBULATORY - MEDICINE [place] [facility] [place] [facility] Feb 03, 2024 03:00 PM AMBULATORY - MEDICINE [place] [facility] [place] [facility] Feb 14, 2024 11:00 AM AMBULATORY - PSYCHIATRY [facility] [place] [facility] Mar 06, 2024 09:00 AM AMBULATORY - MEDICINE [facility] [place] [facility] Apr 03, 2024 11:30 AM AMBULATORY - MEDICINE [place] [facility] [place] [facility] Apr 13, 2024 11:00 AM AMBULATORY - PSYCHIATRY [facility] [place] [facility] Apr 13, 2024 02:00 PM AMBULATORY - MEDICINE [place] [facility] [place] [facility] Apr 13, 2024 03:00 PM AMBULATORY - MEDICINE [place] [facility] [place] [facility] May 02, 2024 11:00 AM AMBULATORY - MEDICINE [facility] [place] [facility] May 15, 2024 11:30 AM AMBULATORY - PSYCHIATRY [place] [facility] [place] [facility] Social History: Smoking Status (Most current) and Tobacco Use (All prior to encounter date) This section includes the most current, and the historical, smoking and tobacco- related health factors from the [place] facility where the Encounter took place. Current Smoking Status This section includes the most current smoking, or tobacco-related health factor, from the [place] facility where the Encounter took place. Date/Time Current Smoking Status Comment Rosana humphrey Mar 31, 2023 11:00 AM VA-TOBACCO QUIT 1 TO < 5 YRS [facility] Tobacco Use History This section includes a history of the smoking, or tobacco-related health factors, that were collected on or before the date of the Encounter. The data comes from the [place] facility where the Encounter took place. Date/Time Smoking Status/Tobac co Use Comment Facility Mar 31, 2023 11:00 AM VA-TOBACCO QUIT 1 TO < 5 YRS [place] [facility] [place] [facility] Mar 25, 2022 10:30 AM VA-TOBACCO NEVER USED [place] [facility] [place] [facility] Mar 19, 2021 02:00 PM VA-TOBACCO FORMER USER [place] [facility] [place] [facility] Mar 19, 2021 02:00 PM VA-TOBACCO QUIT < 1 YEAR [facility] [place] [facility] Sep 20, 2018 11:24 AM VA-TOBACCO USE DECLINED TO ANSWER [facility] [place] [facility] Oct 21, 2017 08:13 AM QUIT TOBACCO USE IN PAST YEAR [facility] [place] [facility] Dec 30, 2016 08:28 AM QUIT TOBACCO USE 1-7 YEARS AGO [facility] [place] [facility] Jun 04, 2016 08:43 AM QUIT TOBACCO USE 1-7 YEARS AGO [facility] [place] [facility] May 17, 2015 08:45 AM QUIT TOBACCO USE 1-7 YEARS AGO quit 2 years ago. [facility] [place] [facility] Jun 07, 2014 09:25 AM QUIT TOBACCO USE 1-7 YEARS AGO [facility] [place] [facility] November 30, 2013 08:44 AM QUIT TOBACCO USE IN PAST YEAR [facility] [place] [facility] May 22, 2013 10:10 AM QUIT TOBACCO USE IN PAST YEAR [facility] [place] [facility] December 01, 2012 01:54 PM QUIT TOBACCO USE IN PAST YEAR [place] [facility] [place] [facility] Jun 07, 2012 08:16 AM V1-PT DECLINES TOBACCO CESSATION MEDS [facility] [place] [facility] Jun 07, 2012 08:16 AM V1-PT THINKING ABOUT QUIT TOBACCO USE [facility] [place] [facility] Jan 05, 2012 09:00 AM CURRENT SMOKER intermittenly [facility] [place] [facility] Jan 05, 2012 09:00 AM V1-PT DECLINES REF TO TOBACCO CESS PRGM [facility] [place] [facility] Jan 05, 2012 09:00 AM V1-PT DECLINES TOBACCO CESSATION MEDS [facility] [place] [facility] Jan 05, 2012 09:00 AM V1-PT THINKING ABOUT QUIT TOBACCO USE [facility] [place] [facility] Feb 17, 2011 09:52 AM V1-PT DECLINES TOBACCO CESSATION MEDS [facility] [place] [facility] Feb 17, 2011 09:52 AM V1-PT THINKING ABOUT QUIT TOBACCO USE [facility] [place] [facility] Aug 13, 2010 11:31 AM QUIT TOBACCO USE IN PAST YEAR [facility] [place] [facility] Feb 19, 2010 01:26 PM QUIT TOBACCO USE IN PAST YEAR [place] [facility] [place] [facility] Sep 13, 2009 11:04 AM QUIT TOBACCO USE IN PAST YEAR IA [facility] [place] [facility] Feb 05, 2009 08:29 AM V1-PT DECLINES REF TO TOBACCO CESS [facility] [place] [facility] Feb 05, 2009 08:29 AM V1-PT DECLINES TOBACCO CESSATION MEDS [facility] [place] [facility] Feb 05, 2009 08:29 AM V1-PT THINKING ABOUT QUIT TOBACCO USE [facility] [place] [facility] Aug 22, 2008 09:04 AM QUIT TOBACCO USE IN PAST YEAR [place] [facility] [place] [facility] Mar 12, 2008 10:40 AM V1-PT DECLINES REF TO TOBACCO CESS PRGM [facility] [place] [facility] Mar 12, 2008 10:40 AM V1-PT DECLINES TOBACCO CESSATION MEDS [facility] [place] [facility] Mar 12, 2008 10:40 AM V1-PT NOT INTERESTED IN QUIT TOBACCO USE [facility] [place] [facility] Mar 08, 2008 09:37 AM CURRENT SMOKER smokes one pack a day for about 10 years ago. [facility] Encounter Notes: All associated encounter notes This section contains the clinical notes associated to the Encounter. Date/Time Encounter Note(s) Provider Source Nov 16, 2023 11:08 AM TELEPHONE ENCOUNTE R NOTE: LOCAL TITLE: TELEPHONE NOTE/SPECIALTY CLINIC STANDARD TITLE: TELEPHONE ENCOUNTER NOTE DATE OF NOTE: NOV 16, 2023@11:08 ENTRY DATE: NOV 16, 2023@11:08:45 AUTHOR: BEULAH LOPEZ EXP COSIGNER: URGENCY: STATUS: COMPLETED Called and spoke with pt to remind them that they have a VVC appt with the Pain clinic on 11/17/2023 at 930am. /divya/ BEULAH LOPEZ ADVANCED MASTER AUTOMOTIVE TECHNICIAN Signed: 11/16/2023 11:09 BEULAH LOPEZ [facility]
--- OUTSIDE RECORDS SUMMARY | 2024-07-25 11:27 | XMS_ITS | Encounter Summary ---
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 Address [address] [place] [id number] Care Team Providers Care Tankage Grinder Name Role Phone ROMANA CASTILLO Primary Care [...] Garcia's Name Patient's Relationship to Policy Garcia [facility] (MEDICAID) MEDICAID [facility] HUMAN [facility] May 14, 2009 [id number] SAMPLE,ROCCO MOORE PATIENT [facility] MEDICAID [facility] May 14, 2009 [id number] SAMPLE,ROCCO MOORE PATIENT MEDICAID MEDICAID [facility] [place] Jul 26, 2018 MEDICAI D [id number] SAMPLE,ROCCO MOORE PATIENT MEDICARE (WNR) MEDICARE (M) PART A November 24, 2015 PART A [id number] SAMPLE,ROCCO MOORE PATIENT MEDICARE (WNR) MEDICARE (M) PART B November 24, 2015 PART B [id number] SAMPLE,ROCCO MOORE PATIENT Selected Encounter This section includes the information on record at [place] for the Encounter. Date/Time Encounter Type Encounter Description Reason Pro vider Source IHE Encounter Template Text not used by VA
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
--- OUTSIDE RECORDS SUMMARY | 2024-07-25 11:27 | XMS_ITS | Encounter Summary ---
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 Address [address] [place] [id number] Care Team Providers Care [employer] Science Teacher Name Role Phone ROMANA CASTILLO Primary [...] Garcia's Name Patient's Relationship to Policy Garcia [facility] (MEDICAID[facility] May 14, 2009 [id number] SAMPLE,ROCCO MOORE PATIENT [facility] May 14, 2009 [id number] SAMPLE,ROCCO MOORE PATIENT MEDICAID MEDICAID [facility] [place] Jul 26, 2018 MEDICAI D [id number] SAMPLE,ROCCO MOORE PATIENT MEDICARE (WNR) MEDICARE (M) PART A November 24, 2015 PART A [id number] [phone] SAMPLE,ROCCO MOORE PATIENT MEDICARE (WNR) MEDICARE (M) PART B November 24, 2015 PART B [id number] ROCCO QUEZADA PATIENT Selected Encounter This section includes the information on record at [place] for the Encounter. Date/Time Encounter Type Encounter Description Reason Pro vider Source Nov 12, 2023 12:07 PM Outpatient Encounter PAIN CLINIC IHE Encounter Template Text not used by [place] Plan of Treatment: Future Appointments (+ 6 months) and Future Tests (+/- 45 days) The Plan of Treatment section includes future care activities for the patient from all [place] treatmentfacilities. This section includes future appointments and [...] 17, 2023 09:30 AM AMBULATORY - [place]ICINE [place] [facility] [facility] Jan 03, 2024 11:00 AM AMBULATORY - PS[place]CHIATRY [place] [facility] [facility] Jan 17, 2024 03:00 PM AMBULATORY - MEDICINE [place] [facility] Jan 26, 2024 09:30 AM AMBULATORY [place]ICINE [place] [facility] Feb 03, 2024 03:00 PM AMBULATORY - MEDICINE [place] [facility] Feb 14, 2024 11:00 AM AMBULATORY - PS[place]CHIATRY [place] [facility] [facility] Mar 06, 2024 09:00 AM AMBULATORY - MEDICINE [place] [facility] Apr 03, 2024 11:30 AM AMBULATORY - MEDICINE [place] [facility] Apr 13, 2024 11:00 AM AMBULATORY - PS[place]CHIATRY [place] [facility] [facility] Apr 13, 2024 02:00 PM AMBULATORY [place] MEDICINE [place] [facility] Apr 13, 2024 03:00 PM AM[place]ULATORY - [place]ICINE [place] [facility] May 02, 2024 11:00 AM AM[place]ULATORY [place]ICINE [place] [facility] Social History: Smoking Status (Most current) [...] took place. Date/Time Current Smoking Status Comment [facility] Mar 31, 2023 11:00 AM VA-TOBACCO QUIT 1 TO < 5 YRS [facility] [place] [facility] Tobacco Use History This section includes a history of the smoking, or tobacco-related health factors, that were collected on or before the date of the Encounter. The data comes from the [place] facility where the Encounter took place. Date/Time Smoking Status/Tobac co Use Comment Facility Mar 31, 2023 11:00 AM VA-TOBACCO QUIT 1 TO < 5 YRS [place] [facility] [facility] Mar 25, 2022 10:30 AM VA-TOBACCO NEVER USED [place] [facility] Mar 19, 2021 02:00 PM VA-TOBACCO FORMER USER [place] [facility] Mar 19, 2021 02:00 PM VA-TOBACCO QUIT < 1 YEAR [place] [facility] Sep 20, 2018 11:24 AM VA-TOBACCO USE DECLINED TO ANSWER [place] [facility] Oct 21, 2017 08:13 AM QUIT TOBACCO USE IN PAST YEAR [place] [facility] Dec 30, 2016 08:28 AM QUIT TOBACCO USE 1-7 YEARS AGO [place] [facility] Jun 04, 2016 08:43 AM QUIT TOBACCO USE 1-7 YEARS AGO [place] [facility] May 17, 2015 08:45 AM QUIT TOBACCO USE 1-7 YEARS AGO quit 2 years ago. [place] [facility] [facility] Jun 07, 2014 09:25 AM QUIT TOBACCO USE 1-7 YEARS AGO [place] [facility] [facility] November 30, 2013 08:44 AM QUIT TOBACCO USE IN PAST YEAR [place] [facility] [facility] May 22, 2013 10:10 AM QUIT TOBACCO USE IN PAST YEAR [place] [facility] [facility] December 01, 2012 01:54 PM QUIT [facility] [place] [facility] Jun 07, 2012 08:16 AM V1-PT DECLINES TOBACCO CESSATION MEDS [place] [facility] Jun 07, 2012 08:16 AM V1-PT THINKING ABOUT QUIT TOBACCO USE [place] [facility] [place] [facility] Jan 05, 2012 09:00 AM CURRENT SMOKER intermittenly [place] [facility] [place] [facility] Jan 05, 2012 09:00 AM V1-PT DECLINES REF TO TOBACCO CESS PRGM [place] [facility] Jan 05, 2012 09:00 AM V1-PT DECLINES TOBACCO CESSATION MEDS [place] [facility] [place] [facility] Jan 05, 2012 09:00 AM V1-PT THINKING ABOUT QUIT TOBACCO USE [place] [facility] [place] [facility] Feb 17, 2011 09:52 AM V1-PT DECLINES TOBACCO CESSATION MEDS [place] [facility] Feb 17, 2011 09:52 AM V1-PT THINKING ABOUT QUIT TOBACCO USE [place] [facility] [facility] Aug 13, 2010 11:31 AM QUIT TOBACCO USE IN PAST YEAR [facility] [place] [facility] Feb 19, 2010 01:26 PM QUIT TOBACCO USE IN PAST YEAR [place] [facility] [facility] Sep 13, 2009 11:04 AM QUIT TOBACCO USE [facility]ST [facility] [place] [facility] Feb 05, 2009 08:29 AM V1-PT DECLINES REF TO TOBACCO CESS PRGM [facility] [place] [facility] Feb 05, 2009 08:29 AM V1-PT DECLINES TOBACCO CESSATION MEDS [facility] [place] [facility] Feb 05, 2009 08:29 AM V1-PT THINKING ABOUT QUIT TOBACCO USE [place] [facility] Aug 22, 2008 09:04 AM QUIT TOBACCO USE IN PAST YEAR [place] [facility] [facility] Mar 12, 2008 10:40 AM V1-PT DECLINES REF TO TOBACCO CESS PRGM [place] [facility] [facility] Mar 12, 2008 10:40 AM V1-PT DECLINES TOBACCO CESSATION MEDS [place] [facility] [facility] Mar 12, 2008 10:40 AM V1-PT NOT INTERESTED IN QUIT TOBACCO USE [place] [facility] Mar 08, 2008 09:37 AM CURRENT [...] for refill by this weekend. please advise [phone] /divya/ BEULAH LOPEZ ADVANCED MATCH MAKER Signed: 11/12/2023 12:09 Receipt Acknowledged By: 11/16/2023 13:35 /es/ Gal Solorio MD STAFF PHYSICIAN 11/12/2023 13:37 /es/ ERIC DOUGLAS CLINICAL PHARMACIST PRACTITIONER, PAIN 11/12/2023 14:37 /es/ JESSIKA CORONEL MD PHYSICIAN 11/12/2023 13:21 /es/ URBANO FOSTER, PHARM.D CLINICAL PHARMACIST PRACTITIONER 11/12/2023 ADDENDUM STATUS: COMPLETED Called and spoke with [place]. said she was informed to increase from taking 4 tablets per day of buprenorphine 2mg upto 8 tablets per day. She has been taking 8 tablets per day for 3 weeks now and report that buprenorphine is working better for her pain than oxycodone. She states she will be out of buprenorphine 2mg midday on 11/13/23. She had a [facility] appt with Dr. Solorio on 11/09/23 but state that she had internet connection issue and had to reschedule the appt to 11/17/23. Inform her will refill early for buprenorphine 2mg for her to pick remover in [facility] and follow up with Dr. Solorio as scheduled appt. /divya/ URBANO FOSTER, PHARM.D CLINICAL PHARMACIST PRACTITIONER Signed: 11/12/2023 13:25 BEULAH LOPEZ [facility]
--- OUTSIDE RECORDS SUMMARY | 2024-07-25 11:28 | XMS_ITS | Encounter Summary ---
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 Organization [place] Address [address] [place] [address] Care Team Providers Care Assembler Finger Buffs Name Role Phone ROMANA CASTILLO Primary Care [...] Garcia [facility] (MEDICAID) MEDICAID [facility] HUMAN [facility] May 14, 2009 [id number] SAMPLE,ROCCO MOORE PATIENT [facility] MEDICAID [facility] May 14, 2009 [id number] SAMPLE,ROCCO MOORE PATIENT MEDICAID MEDICAID [facility] [place] Jul 26, 2018 MEDICAI D [id number] SAMPLE,ROCCO MOORE PATIENT MEDICARE (WNR) MEDICARE (M) PART A November 24, 2015 PART A [id number] SAMPLE,ROCCO MOORE PATIENT MEDICARE (WNR) MEDICARE (M) PART B November 24, 2015 PART B [id number] SAMPLE,ROCCO MOORE PATIENT Selected Encounter This section includes the information on record at [place] for the Encounter. Date/Time Encounter Type Encounter Description Reason Pro vider Source IHE Encounter Template Text not used by VA
--- OUTSIDE RECORDS SUMMARY | 2024-07-25 11:28 | XMS_ITS | Encounter Summary ---
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 Address [address] [place] [address] Care Team Providers Care Building Energy Consultant Name Role Phone ROMANA CASTILLO Primary [...] Garcia's Name Patient's Relationship to Policy Garcia [facility] (MEDICAID) [facility] May 14, 2009 [id number] SAMPLE,ROCCO MOORE PATIENT [facility] MEDICAID [facility] May 14, 2009 [id number] SAMPLE,ROCCO MOORE PATIENT MEDICAID MEDICAID [facility] [place] Jul 26, 2018 MEDICAI D [id number] SAMPLE,ROCCO MOORE PATIENT MEDICARE (WNR) MEDICARE (M) PART A November 24, 2015 PART A [id number] SAMPLE,ROCCO MOORE PATIENT MEDICARE (WNR) MEDICARE (M) PART B November 24, 2015 PART B [id number] SAMPLE,ROCCO MOORE PATIENT Selected Encounter This section includes the information on record at [place] for the Encounter. Date/Time Encounter Type Encounter Description Reason Provider Source Jan 03, 2024 11:00 AM OFFICE O/P EST LOW 20 MIN SUBSTANCE USE DISORDER IND ICD-10-CM F41.9 Anxiety disorder, unspecified BAYRON SCOTT MD IHE Encounter Template Text not used by [place] Assessments - Encounter Diagnoses This section includes the primary and secondary diagnoses documented for the Encounter. Date/Time Primary/Secondary Diagnosis Diagnosis Name Provider Source Jan 03, 2024 11:34 AM PRIMARY Anxiety disorder, unspecified BAYRON SCOTT MD [place] [facility] [place] [facility] Jan 03, 2024 11:34 AM SECONDARY Primary insomnia BAYRON SCOTT MD [place] [facility] [place] [facility] Plan of Treatment: Future Appointments (+ 6 months) and Future Tests (+/- 45 days) The Plan of Treatment section includes future care activities for the patient from all [place] [facility]. This section includes future appointments and [...] - MEDICINE [place] [facility] Jan 26, 2024 09:30 AM AMBULATORY - MEDICINE [place] [facility] Feb 03, 2024 03:00 PM AMBULATORY - MEDICINE [place] [facility] Feb 14, 2024 11:00 AM AMBULATORY - PSYCHIATRY [place] [facility] [place] [facility] Mar 06, 2024 09:00 AM AMBULATORY - MEDICINE [place] [facility] Apr 03, 2024 11:30 AM AMBULATORY - MEDICINE [place] [place] [facility] Apr 13, 2024 11:00 AM AMBULATORY - PSYCHIATRY [place] [facility] [place] [facility] Apr 13, 2024 02:00 PM AMBULATORY - MEDICINE [place] [facility] Apr 13, 2024 03:00 PM AMBULATORY - MEDICINE [facility] May 02, 2024 11:00 AM [facility] May 15, 2024 11:30 AM AMBULATORY - PSYCHIATRY [facility] May 25, 2024 11:30 AM AMBULATORY - MEDICINE [facility] Active, Pending, and Scheduled Orders This section includes a listing of several types of active, pending, and scheduled orders, including clinic medications orders, diagnostic test orders, procedure orders and consult orders; where the start date of the order is 45 days before the date of the Encounter or 45 days after the date of theEncounter. The data comes from all [facility] facilities. Test Date/Time Test Type Test Details Facility Name Jan 17, 2024 12:00 AM Laboratory - Chemistry Order BASIC METABOLIC PANEL (non-fasting) BLOOD (SST-SERUM) [facility] Jan 17, 2024 12:00 AM Laboratory - Chemistry Order LIPID PANEL, NON FASTING BLOOD (SST-SERUM) [facility] Jan 17, 2024 12:00 AM Laboratory - Chemistry Order LIVER FUNCTION BLOOD (SST-SERUM) [facility] Jan 17, 2024 12:00 AM Laboratory - Chemistry Order TSH BLOOD (SST-SERUM) [facility] Jan 17, 2024 12:00 AM Laboratory - Chemistry Order MICROALBUMIN CREATININE RATIO PANEL URINE (RANDOM) [facility] Social History: Smoking Status (Most current) [...] Current Smoking Status Comment Facil ity Mar 31, 2023 11:00 AM [place]-TOBACCO QUIT 1 TO < 5 YRS [facility] Tobacco Use History This section includes a history of the smoking, or tobacco-related health factors, that were collected on or before the date of the Encounter. The data comes from the [place] facility where the Encounter took place. Date/Time Smoking Status/Tobac co Use Comment Facility Mar 31, 2023 11:00 AM VA-TOBACCO QUIT 1 TO < 5 YRS [place] [facility] [facility] Mar 25, 2022 10:30 AM VA-TOBACCO NEVER USED [place] [facility] [facility] Mar 19, 2021 02:00 PM VA-TOBACCO FORMER USER [place] [facility] Mar 19, 2021 02:00 PM VA-TOBACCO QUIT < 1 YEAR [facility] Sep 20, 2018 11:24 AM VA-TOBACCO USE DECLINED TO ANSWER [facility] [place] [facility] Oct 21, 2017 08:13 AM QUIT TOBACCO USE IN PAST YEAR [place] [facility] [place] [facility] Dec 30, 2016 08:28 AM QUIT TOBACCO USE 1-7 YEARS AGO [place] [facility] [place] [facility] Jun 04, 2016 08:43 AM QUIT TOBACCO USE 1-7 YEARS AGO [place] [facility] May 17, 2015 08:45 AM QUIT TOBACCO USE 1-7 YEARS AGO quit 2 years ago. [facility] [place] [facility] Jun 07, 2014 09:25 AM QUIT TOBACCO USE 1-7 YEARS AGO [place] [facility] [facility] November 30, 2013 08:44 AM QUIT TOBACCO USE IN PAST YEAR [facility] [place] [facility] May 22, 2013 10:10 AM QUIT TOBACCO USE IN PAST YEAR [facility] [place] [facility] December 01, 2012 01:54 PM QUIT TOBACCO USE IN PAST YEAR [place] [facility] [facility] Jun 07, 2012 08:16 AM V1-PT DECLINES TOBACCO CESSATION MEDS [facility] [place] [facility] Jun 07, 2012 08:16 AM V1-PT THINKING ABOUT QUIT TOBACCO USE [place] CNT [place] [facility] Jan 05, 2012 09:00 AM CURRENT SMOKER intermittenly [facility] [place] [facility] Jan 05, 2012 09:00 AM V1-PT DECLINES REF TO TOBACCO CESS PRGM [facility] Jan 05, 2012 09:00 AM V1-PT DECLINES TOBACCO CESSATION MEDS [facility] [place] [facility] Jan 05, 2012 09:00 AM V1-PT THINKING ABOUT QUIT TOBACCO USE [facility] Feb 17, 2011 09:52 AM V1-PT DECLINES TOBACCO CESSATION MEDS [facility] Feb 17, 2011 09:52 AM V1-PT THINKING ABOUT QUIT [facility] Aug 13, 2010 11:31 AM QUIT TOBACCO USE IN PAST YEAR [facility] Feb 19, 2010 01:26 PM QUIT TOBACCO USE [facility] Sep 13, 2009 11:04 AM QUIT TOBACCO USE [facility]ST [facility] Feb 05, 2009 08:29 AM V1-PT DECLINES REF TO TOBACCO CESS PR[facility] Feb 05, 2009 08:29 AM V1-PT DECLINES TOBACCO CESSATION MEDS [facility]RN [facility] Feb 05, 2009 08:29 AM V1-PT THINKING ABOUT QUIT TOBACCO USE [facility] Aug 22, 2008 09:04 AM QUIT TOBACCO USE IN PAST YEAR [facility]RN [facility] Mar 12, 2008 10:40 AM V1-PT DECLINES REF TO TOBACCO CESS PRGM [facility] Mar 12, 2008 10:40 AM V1-PT DECLINES TOBACCO CESSATION [facility] Mar 12, 2008 10:40 AM V1-PT NOT INTERESTED IN QUIT TOBACCO USE [facility] Mar 08, 2008 09:37 AM CURRENT SMOKER smokes one pack a day for about 10 years ago. [facility] Encounter Notes: All associated encounter notes This section contains the clinical notes associated to the Encounter. Date/Time Encounter Note(s) Provider Source Jan 03, 2024 09:32 AM ACCOUNTING OF DISCLOSURES NOTE: LOCAL TITLE: STATE PRESCRIPTION DRUG MONITORING PROGRAM STANDARD TITLE: ACCOUNTING OF DISCLOSURES NOTE DATE OF NOTE: JAN 03, 2024@09:32:19 ENTRY DATE: JAN 03, 2024@09:32:19 AUTHOR: JAMIE SCOTT EXP COSIGNER: URGENCY: STATUS: COMPLETED This PDMP query was submitted by Jamie Scott MD, MD. The clinical justification for this PDMP query is to review controlled substances prescribed outside of the [facility], and any additional information that may become available, as an important component of standard clinical care, and in accordance with [facility] policy. Patient information was shared with the PDMP [place]. No prescription(s) for controlled substances outside the [facility] were found in the last 90 days. /divya/ JAMIE SCOTT JR, MD STAFF PSYCHIATRIST Signed: 01/03/2024 11:34 JAMIE SCOTT MD [place] [facility] [place] [facility] Jan 03, 2024 09:30 AM TELEHEALTH NOTE: LOCAL TITLE: VA VIDEO CONNECT NOTE STANDARD TITLE: TELEHEALTH NOTE DATE OF NOTE: JAN 03, 2024@09:30 ENTRY DATE: JAN 03, 2024@09:30:23 AUTHOR: JAMIE SCOTT EXP COSIGNER: URGENCY: STATUS: COMPLETED VA Video Connect (VVC) Standard Documentation VVC Clinician Resources Only: E911 (Emergency Call Relay Center): [phone] National Veterans Crisis Line - 988 then press #1. [facility] Suicide Coordinator [phone], Ext. [phone]; Back-up Ext. [phone] [place] Police, [place] [phone] Introduction: Visit is being conducted by [place] [facility]. identified with 2 identifiers: [X] Full Name [X] Date of [ ] VA ID Card Emergency Plan: confirmed and/or provided the following information in case of emergency or technology failure. PATIENT PHONE - PHONE NUMBER [CELLULAR] - Is patient phone number correct, if not, enter below: Avalon's phone number: [address] [place] [address] 's emergency contact name and phone number: Negra DonohueSTELLA [phone] Avalon reported that location is private and safe: Yes Informed Consent: informed of the risks and benefits of Telehealth video care. has the right to refuse video services. If refuses video visit, a [id number] visit will be scheduled. Avalon verbalized consent for this video visit: Yes Avalon provided consent for any other persons present for visit: N/A If yes, who and relationship to patient: Secure visit: Visit was locked for security and privacy: Yes Medications were reconciled with Active Outpatient Medications: 1) APIXABAN 5MG TAB TAKE ONE TABLET BY MOUTH EVERY 12 HOURS 2) ATORVASTATIN CALCIUM 80MG TAB TAKE ONE TABLET BY MOUTH ONCE DAILY FOR CHOLESTEROL 3) BUPRENORPHINE HCL 2MG SUBLINGUAL TAB DISSOLVE ONE TABLET UNDER THE TONGUE THREE TIMES A DAY 4) CHOLECALCIF 10MCG (D3-400UNIT) TAB TAKE ONE TABLET BY MOUTH ONCE DAILY FOR VITAMIN D DEFICIENCY 5) CLONAZEPAM 0.5MG TAB TAKE ONE TABLET BY MOUTH EVERY MORNING AND TAKE ONE- HALF TABLET TWICE DAILY NEEDED 6) DILTIAZEM (EQV-TIAZAC) 180MG 24HR CAP TAKE ONE CAPSULE BY MOUTH ONCE DAILY 7) LISINOPRIL 40MG TAB TAKE ONE TABLET BY MOUTH ONCE DAILY TO CONTROL BLOOD PRESSURE 8) OXYCODONE HCL 5MG TAB NOT SA TAKE TWO TABLETS BY MOUTH EVERY 4 HOURS NEEDED FOR PAIN 9) TEMAZEPAM 30MG CAP TAKE ONE CAPSULE BY MOUTH AT BEDTIME NEEDED 10) THEOPHYLLINE (JOSE-24) 400MG SA CAP TAKE ONE [...] DIPHTHERIA TOXOID 0.5ML INTRAMUSCULARLY NOW 6) Non-VA [id number]/VILANTERO L25MCG 30D INH 1 INHALATION BY MOUTH ONCE DAILY REID QUEZADA is a 63 yo, female who was [facility] as an visit for 20 minutes for medication management. Two identifiers were used. Patient cancelled and 31 December 2023 appointments. CC: It's working perfect (medications) . Vet takes suboxone for pain from Dr. Solorio. 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 No alcohol or substance use, no. Umair used to get the clonazepam and temazepam from her waste minimization technician and he retired. Almat states she has been on the same dose of clonazepam an temazepam for 3 years, something like that. Clonazepam was recommended by her waste minimization technician and stated the clonazepam. Almat tried other anxiety meds, they were awful. No complaints, no cravings, and no adverse side effects from current medications were reported, no . Mood is stable, good, I'm able to get out and do things. It's getting better. Umair still goes to the [facility], at least 3-4 days a week . Sleep and appetite are both, good. Discussed continuation of present medications as above. Patient education given including that benzodiazepines are not indicted jail and that there is a possible interaction [...] protect her medications from theft and children. Umair is agreeable. MSE: REID QUEZADA is an obese, 63 yo, female who is casually dressed wearing a sweatshirt, an O2 cannula, and glasses. She is [...] Plan: Continue present medications as above. Encouraged almat to take medications as prescribed. RTC in 2 months or earlier if needed. Vet states PCP is not willing to take over refills of clonazepam and temazepam. /divya/ JAMIE SCOTT JR, MD STAFF PSYCHIATRIST Signed: 01/03/2024 11:34 JAMIE SCOTT MD [place] [facility]
--- OUTSIDE RECORDS SUMMARY | 2024-07-25 11:28 | XMS_ITS | Encounter Summary ---
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 Organization [place] Address [address] [place] [id number] Care Team Providers Care Building Trades Instructor Name Role Phone ROMANA CASTILLO Primary [...] Patient's Relationship to Policy Garcia [facility] (MEDICAID) [facility] May 14, 2009 [id number] SAMPLE,ROCCO MOORE PATIENT [facility]ID [facility] May 14, 2009 [id number] SAMPLE,ROCCO MOORE PATIENT MEDICAID MEDICAID [facility] Jul 26, 2018 MEDICAI D [id number] SAMPLE,ROCCO MOORE PATIENT MEDICARE (WNR) MEDICARE (M) PART A November 24, 2015 PART A [id number] [phone] SAMPLE,ROCCO MOORE PATIENT MEDICARE (WNR) MEDICARE (M) PART B November 24, 2015 PART B [id number] ROCCO QUEZADA PATIENT Selected Encounter This [...] activities for the patient from all [place] treatmentfanovant healthities. This section includes future appointments and future [...] 17, 2024 03:00 PM AMBULATORY - MEDICINE [place] [facility] [place] [facility] Jan 26, 2024 09:30 AM AMBULATORY - MEDICINE [place] [facility] [place] [facility] Feb 03, 2024 03:00 PM AMBULATORY - MEDICINE [place] [facility] [place] [facility] Feb 14, 2024 11:00 AM AMBULATORY - PSYCHIATRY [facility] [place] [facility] Mar 06, 2024 09:00 AM AMBULATORY - MEDICINE [place] [facility] [place] [facility] Apr 03, 2024 11:30 AM AMBULATORY - MEDICINE [place] [facility] [place] [facility] Apr 13, 2024 11:00 AM AMBULATORY - PSYCHIATRY [facility] [place] [facility] Apr 13, 2024 02:00 PM AMBULATORY - MEDICINE [place] [facility] [place] [facility] Apr 13, 2024 03:00 PM AMBULATORY - MEDICINE [place] [facility] [place] [facility] May 02, 2024 11:00 AM AMBULATORY - MEDICINE [place] [facility] [place] [facility] May 15, 2024 11:30 AM AMBULATORY - PSYCHIATRY [facility] [place] [facility] May 25, 2024 11:30 AM AMBULATORY - MEDICINE [place] [facility] [place] [facility] Active, Pending, and Scheduled Orders This section includes a listing of several types of active, pending, and scheduled orders, including clinic medications orders, diagnostic test orders, procedure orders and consult orders; where the start date of the order is 45 days before the date of the Encounter or 45 days after the date of theEncounter. The data comes from all [place] treatment facilities. Test Date/Time Test Type Test Details Facility Name Jan 17, 2024 12:00 AM Laboratory - Chemistry Order BASIC METABOLIC PANEL (non-fasting) BLOOD ([facility] Jan 17, 2024 12:00 AM Laboratory - Chemistry Order LIPID PANEL, NON FASTING BLOOD (SST-SERUM) [facility] Jan 17, 2024 12:00 AM Laboratory - Chemistry Order LIVER FUNCTION BLOOD ([facility]UM) [facility] Jan 17, 2024 12:00 AM Laboratory - Chemistry Order TSH BLOOD (SST-SERUM) [facility] Jan 17, 2024 12:00 AM Laboratory - Chemistry Order MICROALBUMIN CREATININE RATIO PANEL URINE (RANDOM) [facility] Social History: Smoking Status (Most [...] place. Date/Time Current Smoking Status Comment [facility] Mar 31, 2023 11:00 AM [facility] Tobacco Use History This section includes a history of the smoking, or tobacco-related health factors, that were collected on or before the date of the Encounter. The data comes from the [place] facility where the Encounter took place. Date/Time Smoking Status/Tobac co Use Comment Facility Mar 31, 2023 11:00 AM VA-TOBACCO QUIT 1 TO < 5 YRS [place] [facility] [place] [facility] Mar 25, 2022 10:30 AM VA-TOBACCO NEVER USED [place] [facility] [place] [facility] Mar 19, 2021 02:00 PM VA-TOBACCO FORMER USER [place] [facility] Mar 19, 2021 02:00 PM VA-TOBACCO QUIT < [facility] Sep 20, 2018 11:24 AM VA-TOBACCO USE DECLINED TO ANSWER [facility] [place] [facility] Oct 21, 2017 08:13 AM QUIT TOBACCO USE IN PAST YEAR [place] [facility] [place] [facility] Dec 30, 2016 08:28 AM QUIT TOBACCO USE 1-7 YEARS AGO [place] [facility] [place] [facility] Jun 04, 2016 08:43 AM QUIT TOBACCO USE 1-7 YEARS AGO [place] [facility] [place] [facility] May 17, 2015 08:45 AM QUIT TOBACCO USE 1-7 YEARS AGO quit 2 years ago. [place] [facility] [facility] Jun 07, 2014 09:25 AM QUIT TOBACCO USE 1-7 YEARS AGO [place] [facility] [place] [facility] November 30, 2013 08:44 AM QUIT TOBACCO USE IN PAST YEAR [place] [facility] [place] [facility] May 22, 2013 10:10 AM QUIT TOBACCO USE IN PAST [facility] [place] [facility] December 01, 2012 01:54 PM QUIT TOBACCO USE IN PAST YEAR [facility] [place] [facility] Jun 07, 2012 08:16 AM V1-PT DECLINES TOBACCO CESSATION MEDS [facility] [place] [facility] Jun 07, 2012 08:16 AM V1-PT THINKING ABOUT QUIT TOBACCO USE [facility] [facility] Jan 05, 2012 09:00 AM CURRENT SMOKER intermittenly [facility] [place] [facility] Jan 05, 2012 09:00 AM V1-PT DECLINES REF TO TOBACCO CESS [facility] [place] [facility] Jan 05, 2012 09:00 AM V1-PT DECLINES TOBACCO CESSATION MEDS [facility] [place] [facility] Jan 05, 2012 09:00 AM V1-PT THINKING ABOUT QUIT [facility]ACCO [facility] [place] [facility] Feb 17, 2011 09:52 AM V1-PT DECLINES TOBACCO CESSATION MEDS [facility] [place] [facility] Feb 17, 2011 09:52 AM V1-PT THINKING ABOUT QUIT [facility]ACCO [facility] [place] [facility] Aug 13, 2010 11:31 AM QUIT TOBACCO USE IN PAST YEAR [facility] [place] [facility] Feb 19, 2010 01:26 PM QUIT TOBACCO USE IN PAST YEAR [facility] Sep 13, 2009 11:04 AM QUIT TOBACCO USE IN PAST YEAR [facility] Feb 05, 2009 08:29 AM V1-PT DECLINES RE[facility]CO [facility]ESS [facility] Feb 05, 2009 08:29 AM V1-PT DECLINES TOBACCO CESSATION MEDS [facility] Feb 05, 2009 08:29 AM V1-PT THINKING ABOUT QUIT TOBACCO USE [facility] Aug 22, 2008 09:04 AM QUIT TOBACCO USE IN PAST YEAR [facility] Mar 12, 2008 10:40 AM V1-PT DECLINES REF TO TOBACCO CESS PRGM [facility] Mar 12, 2008 10:40 AM V1-PT DECLINES TOBACCO CESSATION MEDS [facility] Mar 12, 2008 10:40 AM V1-PT NOT INTERESTED IN QUIT TOBACCO USE [facility] Mar 08, 2008 09:37 AM CURRENT SMOKER smokes one pack a day for about 10 years ago. [facility] Encounter Notes: All associated encounter notes This section contains the clinical notes associated to the Encounter. 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 /divya/ Wendy Madsen MD STAFF PHYSICIAN Signed: 01/04/2024 09:15 Receipt Acknowledged By: 01/04/2024 09:26 /divya/ BEULAH LOPEZ ADVANCED CLAMP CARRIER OPERATOR ====== --- Original Document --- 01/03/24 TELEPHONE NOTE/SPECIALTY CLINIC: scheduled VVC for 01/26/[address] Madsen. 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 If she prefers mail delivery she should contact pharmacy. 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 If she prefers mail delivery she should contact pharmacy. /divya/ Wendy Madsen MD STAFF PHYSICIAN Signed: 01/04/2024 09:14 Receipt Acknowledged By: 01/04/2024 09:27 /isabella LOPEZ ADVANCED CLAMP CARRIER OPERATOR ====== --- Original Document --- 01/03/24 TELEPHONE NOTE/SPECIALTY CLINIC: scheduled VVC for 01/26/[address] Madsen. is asking for refill of her meds please advise /divya/ BEULAH LOPEZ ADVANCED CLAMP CARRIER OPERATOR Signed: 01/03/2024 10:42 Receipt Acknowledged By: 01/04/2024 09:13 /divya/ Wendy Madsen MD STAFF PHYSICIAN * AWAITING SIGNATURE * ERIC DOUGLAS * AWAITING SIGNATURE * URBANO FOSTER 01/04/2024 ADDENDUM STATUS: COMPLETED oxycodone will be available for picker box operator on due date of 01/04. /divya/ Wendy Madsen MD STAFF PHYSICIAN Signed: 01/04/2024 09:15 Receipt Acknowledged By: 01/04/2024 09:26 /isabella LOPEZ ADVANCED CLAMP CARRIER OPERATOR 01/04/2024 ADDENDUM STATUS: COMPLETED Talked with , she is aware med ready for picker box operator 01/05/2024 /isabella LOPEZ ADVANCED CLAMP CARRIER OPERATOR Signed: 01/04/2024 09:27 WENDY MADSEN [place] [facility] [place] [facility] Jan 03, 2024 10:42 AM TELEPHONE ENCOUNTE R NOTE: LOCAL TITLE: TELEPHONE NOTE/SPECIALTY CLINIC STANDARD TITLE: TELEPHONE ENCOUNTER NOTE DATE OF NOTE: JAN 03, 2024@10:42 ENTRY DATE: JAN 03, 2024@10:42:17 AUTHOR: BEULAH LOPEZ EXP COSIGNER: URGENCY: STATUS: COMPLETED TELEPHONE NOTE/SPECIALTY CLINIC Has ADDENDA scheduled VVC for 01/26/[address] Madsen. 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 If she prefers mail delivery she should contact pharmacy. /divya/ Wendy Madsen MD STAFF PHYSICIAN Signed: 01/04/2024 09:14 Receipt Acknowledged By: 01/04/2024 09:27 /isabella LOPEZ ADVANCED CLAMP CARRIER OPERATOR 01/04/2024 ADDENDUM STATUS: COMPLETED oxycodone will be available for picker box operator on due date of 01/04. /es/ Wendy Madsen MD STAFF PHYSICIAN Signed: 01/04/2024 09:15 Receipt Acknowledged By: 01/04/2024 09:26 /divya/ BEULAH LOPEZ ADVANCED CLAMP CARRIER OPERATOR 01/04/2024 ADDENDUM STATUS: COMPLETED Talked with , she is aware med ready for picker box operator 01/05/2024 /divya/ BEULAH LOPEZ ADVANCED CLAMP CARRIER OPERATOR Signed: 01/04/2024 09:27 BEULAH LOPEZ [facility]
--- OUTSIDE RECORDS SUMMARY | 2024-07-25 11:28 | XMS_ITS | Encounter Summary ---
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 Organization [place] Address [address] [place] [address] Care Team Providers Care Cutting And Splicing Supervisor Name Role Phone ROMANA CASTILLO Primary [...] [facility] (MEDICAID) [facility] May 14, 2009 [id number] SAMPLE,ROCCO MOORE PATIENT [facility]ICAID [facility] May 14, 2009 [id number] SAMPLE,ROCCO MOORE PATIENT MEDICAID MEDICAID [facility] [place] Jul 26, 2018 MEDICAI D [id number] SAMPLE,ROCCO MOORE PATIENT MEDICARE (WNR) MEDICARE (M) PART A November 24, 2015 PART A [id number] SAMPLE,ROCCO MOORE PATIENT MEDICARE (WNR) MEDICARE (M) PART B November 24, 2015 PART B [id number] ROCCO QUEZADA PATIENT Selected Encounter This section includes the information on record at [place] for the Encounter. Date/Time Encounter Type Encounter Description Reason Pro vider Source December 06, 2023 09:00 AM Outpatient Encounter PAIN CLINIC I[facility] Encounter Template Text not used by [place] [...] [facility] [facility] May 25, 2024 11:30 AM AMBULATORY - MEDICINE [place] [facility] Active, Pending, and Scheduled Orders This section includes a listing of several types of active, pending, and scheduled orders, including clinic medications orders, diagnostic test orders, procedure orders and consult orders; where the start date of the order is 45 days before the date of the Encounter or 45 days after the date of theEncounter. The data comes from all [facility] facilities. Test Date/Time Test Type Test Details Facility Name Jan 17, 2024 12:00 AM Laboratory - Chemistry Order BASIC METABOLIC PANEL (non-fasting) BLOOD (SST-SERUM) [facility] Jan 17, 2024 12:00 AM Laboratory - Chemistry Order LIPID PANEL, NON FASTING BLOOD (SST-SERUM) [facility] Jan 17, 2024 12:00 AM Laboratory - Chemistry Order LIVER FUNCTION BLOOD (SST-SERUM) [facility] Jan 17, 2024 12:00 AM Laboratory - Chemistry Order TSH BLOOD (SST-SERUM) [facility] Jan 17, 2024 12:00 AM Laboratory - Chemistry Order MICROALBUMIN CREATININE RATIO PANEL URINE (RANDOM) [facility] Social History: Smoking Status (Most [...] 31, 2023 11:00 AM VA-TOBACCO FORMER USER [facility] Tobacco Use History This section includes a history of the smoking, or tobacco-related health factors, that were collected on or before the date of the Encounter. The data comes from the [place] facility where the Encounter took place. Date/Time Smoking Status/Tobac co Use Comment Facility Mar 31, 2023 11:00 AM VA-TOBACCO QUIT 1 TO < 5 YRS [facility] Mar 25, 2022 10:30 AM VA-TOBACCO NEVER USED [facility] Mar 19, 2021 02:00 PM VA-TOBACCO FORMER USER [facility] Mar 19, 2021 02:00 PM VA-TOBACCO QUIT < 1 YEAR [place] [facility] [facility] Sep 20, 2018 11:24 AM VA-TOBACCO USE DECLINED TO ANSWER [place] [facility] [facility] Oct 21, 2017 08:13 AM QUIT TOBACCO USE IN PAST YEAR [place] [facility] [facility] Dec 30, 2016 08:28 AM QUIT TOBACCO USE 1-7 YEARS AGO [place] [facility] [place] [facility] Jun 04, 2016 08:43 AM QUIT TOBACCO USE 1-7 YEARS AGO [place] [facility] [facility] May 17, 2015 08:45 AM QUIT TOBACCO USE 1-7 YEARS AGO quit 2 years ago. [place] [facility] [facility] Jun 07, 2014 09:25 AM QUIT TOBACCO USE 1-7 YEARS AGO [place] [facility] [facility] November 30, 2013 08:44 AM QUIT TOBACCO USE [facility]ST [facility] [place] [facility] May 22, 2013 10:10 AM QUIT TOBACCO USE IN PAST YEAR [place] [facility] [facility] December 01, 2012 01:54 PM QUIT TOBACCO USE IN PAST YEAR [facility] [place] [place] [place] [facility] Jun 07, 2012 08:16 AM V1-PT DECLINES TOBACCO CESSATION MEDS [facility] [place] [facility] Jun 07, 2012 08:16 AM V1-PT THINKING ABOUT QUIT TOBACCO USE [facility] [place] [facility] Jan 05, 2012 09:00 AM CURRENT SMOKER intermittenly [facility] [place] [place] [facility] Jan 05, 2012 09:00 AM V1-PT DECLINES REF TO TOBACCO CESS [facility] [place] [facility] Jan 05, 2012 09:00 AM V1-PT DECLINES TOBACCO CESSATION MEDS [facility] [place] [place] [facility] Jan 05, 2012 09:00 AM V1-PT THINKING ABOUT QUIT TOBACCO USE [facility] [place] [facility] Feb 17, 2011 09:52 AM V1-PT DECLINES TOBACCO CESSATION MEDS [facility] [place] [facility] Feb 17, 2011 09:52 AM V1-PT THINKING ABOUT QUIT TOBACCO USE [facility] [place] [facility] Aug 13, 2010 11:31 AM QUIT TOBACCO USE IN PAST YEAR [facility] Feb 19, 2010 01:26 PM QUIT TOBACCO USE IN PAST YEAR [facility] Sep 13, 2009 11:04 AM QUIT TOBACCO USE IN PAST YEAR [facility] Feb 05, 2009 08:29 AM V1-PT DECLINES REF TO TOBACCO CESS PRGM [facility] Feb 05, 2009 08:29 AM V1-PT DECLINES TOBACCO CESSATION MEDS [facility] Feb 05, 2009 08:29 AM V1-PT THINKING ABOUT QUIT TOBACCO USE [facility] Aug 22, 2008 09:04 AM QUIT TOBACCO USE IN PAST YEAR [facility] Mar 12, 2008 10:40 AM V1-PT DECLINES REF TO TOBACCO CESS PRGM [facility] Mar 12, 2008 10:40 AM V1-PT DECLINES TOBACCO CESSATION MEDS [facility] Mar 12, 2008 10:40 AM V1-PT NOT INTERESTED IN QUIT TOBACCO USE [facility] Mar 08, 2008 09:37 AM CURRENT SMOKER smokes one pack a day for about 10 years ago. [facility] Encounter Notes: All associated encounter notes [...] FAILURE TO RESPOND /divya/ BEULAH LOPEZ ADVANCED GLUE REEL OPERATOR Signed: 12/06/2023 09:01 Receipt Acknowledged By: 12/07/2023 13:22 /es/ Gal Solorio MD STAFF PHYSICIAN 12/06/2023 10:46 /es/ URBANO FOSTER, PHARM.D CLINICAL PHARMACIST PRACTITIONER BEULAH LOPEZ [facility]
--- OUTSIDE RECORDS SUMMARY | 2024-07-25 11:28 | XMS_ITS | Encounter Summary ---
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 Address [address] [place] [id number] Care Team Providers Care Trust Mail Clerk Name Role Phone ROMANA CASTILLO Primary Care [...] Name Patient's Relationship to Policy Garcia [facility] (MEDICAID) [facility] May 14, 2009 [id number] SAMPLE,ROCCO MOORE PATIENT [facility]ICAID [facility] May 14, 2009 [id number] SAMPLE,ROCCO MOORE PATIENT MEDICAID MEDICAID [facility] Jul 26, 2018 MEDICAI D [id number] SAMPLE,ROCCO MOORE PATIENT MEDICARE (WNR) MEDICARE (M) PART A November 24, 2015 PART A [id number] [phone] [id number] SAMPLE,ROCCO MOORE PATIENT MEDICARE (WNR) MEDICARE (M) PART B November 24, 2015 PART B [id number] ROCCO QUEZADA PATIENT Selected Encounter This [...] AMBULATORY - PS[facility]IATRY [facility] [place] [facility] Jan 17, 2024 03:00 PM AMBULATORY - MEDICINE [facility] [place] [facility] Jan 26, 2024 09:30 AM AMBULATORY - MEDICINE [facility] [place] [facility] Feb 03, 2024 03:00 PM AMBULATORY - MEDICINE [facility] [place] [facility] Feb 14, 2024 11:00 AM AMBULATORY - PSYCHIATRY [facility] [place] [facility] Mar 06, 2024 09:00 AM AMBULATORY - MEDICINE [facility] [place] [facility] Apr 03, 2024 11:30 AM AMBULATORY - MEDICINE [facility] [place] [facility] Apr 13, 2024 11:00 AM AMBULATORY - PSYCHIATRY [facility] [place] [facility] Apr 13, 2024 02:00 PM AMBULATORY - MEDICINE [facility] [place] [facility] Apr 13, 2024 03:00 PM AMBULATORY - MEDICINE [facility] [place] [facility] May 02, 2024 11:00 AM AMBULATORY - MEDICINE [facility] [place] [facility] May 15, 2024 11:30 AM AMBULATORY - PSYCHIATRY [facility] [place] [facility] May 25, 2024 11:30 AM AMBULATORY - MEDICINE [place] [facility] [facility] Active, Pending, and Scheduled Orders This section includes a listing of several types of active, pending, and scheduled orders, including clinic medications orders, diagnostic test orders, procedure orders and consult orders; where the start date of the order is 45 days before the date of the Encounter or 45 days after the date of theEncounter. The data comes from all [place] treatment facilities. Test Date/Time Test Type Test [...] took place. Date/Time Current Smoking Status Comment [facility] Mar 31, 2023 11:00 AM [place]-TOBACCO QUIT 1 TO < 5 YRS [facility] Tobacco Use History This section includes a history of the smoking, or tobacco-related health factors, that were collected on or before the date of the Encounter. The data comes from the [place] facility where the Encounter took place. Date/Time Smoking Status/Tobac co Use Comment Facility Mar 31, 2023 11:00 AM [place]-TOBACCO QUIT 1 TO < 5 YRS [facility] Mar 25, 2022 10:30 AM VA-TOBACCO NEVER USED [facility] Mar 19, 2021 02:00 PM VA-TOBACCO FORMER USER [facility] Mar 19, 2021 02:00 PM VA-TOBACCO QUIT < 1 YEAR [facility] [place] [facility] Sep 20, 2018 11:24 AM VA-TOBACCO USE DECLINED TO ANSWER [facility] [place] [facility] Oct 21, 2017 08:13 AM QUIT TOBACCO USE IN PAST YEAR [place] [facility] [place] [facility] Dec 30, 2016 08:28 AM QUIT TOBACCO USE 1-7 YEARS AGO [place] [facility] [place] [facility] Jun 04, 2016 08:43 AM QUIT TOBACCO USE 1-7 YEARS AGO [place] [facility] [place] [facility] May 17, 2015 08:45 AM QUIT TOBACCO USE 1-7 YEARS AGO quit 2 years ago. [facility] [place] [place] [facility] Jun 07, 2014 09:25 AM QUIT TOBACCO USE 1-7 YEARS AGO [place] [facility] [place] [facility] November 30, 2013 08:44 AM QUIT TOBACCO USE IN PAST YEAR [facility] [place] [facility] May 22, 2013 10:10 AM QUIT TOBACCO USE IN PAST YEAR [facility] [place] [facility] December 01, 2012 01:54 PM QUIT TOBACCO USE IN PAST YEAR [facility] [place] [facility] Jun 07, 2012 08:16 AM V1-PT DECLINES TOBACCO CESSATION MEDS [facility] [place] [facility] Jun 07, 2012 08:16 AM V1-PT THINKING ABOUT QUIT TOBACCO USE [facility] [place] [facility] Jan 05, 2012 09:00 AM CURRENT SMOKER intermittenly [facility] [place] [facility] Jan 05, 2012 09:00 AM V1-PT DECLINES REF TO TOBACCO CESS PRGM [facility] [place] [facility] Jan 05, 2012 09:00 AM V1-PT DECLINES TOBACCO CESSATION MEDS [facility] [place] [facility] Jan 05, 2012 09:00 AM V1-PT THINKING ABOUT QUIT TOBACCO USE [facility] [facility] Feb 17, 2011 09:52 AM V1-PT DECLINES TOBACCO CESSATION MEDS [facility] [place] [facility] Feb 17, 2011 09:52 AM V1-PT THINKING ABOUT QUIT TOBACCO USE [facility] [place] [facility] Aug 13, 2010 11:31 AM [facility] Feb 19, 2010 01:26 PM QUIT TOBACCO USE IN PAST YEAR [facility] Sep 13, 2009 11:04 AM QUIT TOBACCO USE IN PAST YEAR [facility] Feb 05, 2009 08:29 AM V1-PT DECLINES REF TO TOBACCO CESS PRGM [facility] Feb 05, 2009 08:29 AM V1-PT DECLINES TOBACCO CESSATION MEDS [facility] Feb 05, 2009 08:29 AM V1-PT THINKING ABOUT QUIT TOBACCO USE [facility] Aug 22, 2008 09:04 AM QUIT TOBACCO USE IN PAST YEAR [facility] Mar 12, 2008 10:40 AM V1-PT DECLINES REF TO TOBACCO CESS PRGM [facility] Mar 12, 2008 10:40 AM V1-PT DECLINES TOBACCO CESSATION MEDS [facility] Mar 12, 2008 10:40 AM V1-PT NOT INTERESTED IN QUIT TOBACCO USE [facility] Mar 08, 2008 09:37 AM CURRENT SMOKER smokes one pack a day for about 10 years ago. [facility] Encounter Notes: All associated encounter notes This [...] OXYCODONE HCL NOT SA TAB 5MG to nut picker in [place] location. Vet will cb to schedule follow up at later date. /divya/ LORI QUEVEDO ADVANCED DIRECTOR OF PHYSIOTHERAPY SERVICES Signed: 12/07/2023 15:44 Receipt Acknowledged By: 12/07/2023 15:50 /es/ Gal Solorio MD STAFF PHYSICIAN 12/07/2023 16:24 /es/ ERIC DOUGLAS CLINICAL PHARMACIST PRACTITIONER, PAIN 12/09/2023 09:09 /es/ JESSIKA CORONEL MD PHYSICIAN 12/08/2023 10:45 /es/ URBANO FOSTER, PHARM.D CLINICAL PHARMACIST PRACTITIONER [facility]
--- OUTSIDE RECORDS SUMMARY | 2024-07-25 11:28 | XMS_ITS ---
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 Address [address] [place] [id number] Care Team Providers Care Gunstock Spray Unit Feeder Name Role Phone ROMANA CASTILLO Primary Care [...] Garcia's Name Patient's Relationship to Policy Garcia [facility] (MEDICAID) [facility] May 14, 2009 [id number] SAMPLE,ROCCO MOORE PATIENT [facility] MEDICAID [facility] May 14, 2009 [id number] SAMPLE,ROCCO MOORE PATIENT MEDICAID MEDICAID [facility] [place] Jul 26, 2018 MEDICAI D [id number] SAMPLE,ROCCO MOORE PATIENT MEDICARE (WNR) MEDICARE (M) PART A November 24, 2015 PART A [id number] [id number] [phone] [id number] SAMPLE,ROCCO MOORE PATIENT MEDICARE (WNR) MEDICARE (M) PART B November 24, 2015 PART B [id number] ROCCO QUEZADA PATIENT Selected Encounter This [...] AMBULATORY - PSYCHIATRY [facility] [place] [facility] Jan 17, 2024 03:00 PM AMBULATORY - MEDICINE [place] [facility] Jan 26, 2024 09:30 AM AMBULATORY - MEDICINE [place] [facility] [place] [facility] Feb 03, 2024 03:00 PM AMBULATORY - MEDICINE [facility] [place] [facility] Feb 14, 2024 11:00 AM AMBULATORY - PSYCHIATRY [facility] [place] [facility] Mar 06, 2024 09:00 AM AMBULATORY - MEDICINE [facility] [place] [facility] Apr 03, 2024 11:30 AM AMBULATORY - MEDICINE [facility] [place] [facility] Apr 13, 2024 11:00 AM AMBULATORY - PSYCHIATRY [facility] [place] [facility] Apr 13, 2024 02:00 PM AMBULATORY - MEDICINE [facility] [place] [facility] Apr 13, 2024 03:00 PM AMBULATORY - MEDICINE [facility] [place] [facility] May 02, 2024 11:00 AM AMBULATORY - MEDICINE [facility] [place] [facility] May 15, 2024 11:30 AM AMBULATORY - PSYCHIATRY [facility] [place] [place] [facility] May 25, 2024 11:30 AM AMBULATORY - MEDICINE [place] [facility] Active, Pending, and Scheduled Orders This section includes a listing of several types of active, pending, and scheduled orders, including clinic medications orders, diagnostic test orders, procedure orders and consult orders; where the start date of the order is 45 days before the date of the Encounter or 45 days after the date of theEncounter. The data comes from all [facility]. Test Date/Time Test Type Test Details Facility Name Jan 17, 2024 12:00 AM Laboratory - Chemistry Order BASIC METABOLIC PANEL (non-fasting) BLOOD (SST-SERUM) [facility] Jan 17, 2024 12:00 AM Laboratory - Chemistry Order LIVER FUNCTION BLOOD (SST-SERUM) [facility] Jan 17, 2024 12:00 AM Laboratory - Chemistry Order LIPID PANEL, NON FASTING BLOOD (SST-SERUM) [facility] Jan 17, 2024 12:00 AM Laboratory - Chemistry Order TSH BLOOD (SST-SERUM) [facility] Jan 17, 2024 12:00 AM Laboratory - Chemistry Order MICROALBUMIN CREATININE RATIO PANEL URINE (RANDOM) [facility] Social History: Smoking Status (Most current) [...] took place. Date/Time Current Smoking Status Comment [facility] Mar 31, 2023 11:00 AM [place]-TOBACCO QUIT 1 TO < 5 YRS [facility] Tobacco Use History This section includes a history of the smoking, or tobacco-related health factors, that were collected on or before the date of the Encounter. The data comes from the [place] facility where the Encounter took place. Date/Time Smoking Status/Tobac co Use Comment Facility Mar 31, 2023 11:00 AM NE-TOBACCO QUIT 1 TO < 5 YRS [facility] Mar 25, 2022 10:30 AM VA-TOBACCO NEVER USED [facility] Mar 19, 2021 02:00 PM VA-TOBACCO FORMER USER [facility] Mar 19, 2021 02:00 PM VA-TOBACCO QUIT < 1 YEAR [facility] [place] [facility] Sep 20, 2018 11:24 AM VA-TOBACCO USE DECLINED TO ANSWER NE CNTR [facility] [place] [facility] Oct 21, 2017 08:13 AM QUIT TOBACCO USE IN PAST YEAR NE CN[facility] [place] [facility] Dec 30, 2016 08:28 AM QUIT TOBACCO USE 1-7 YEARS AGO NE [facility] [place] [facility] Jun 04, 2016 08:43 AM QUIT TOBACCO USE 1-7 YEARS AGO [place] [facility] [place] [facility] May 17, 2015 08:45 AM QUIT TOBACCO USE 1-7 YEARS AGO quit 2 years ago. [facility] [place] [facility] Jun 07, 2014 09:25 AM QUIT TOBACCO USE 1-7 YEARS AGO [place] [facility] November 30, 2013 08:44 AM QUIT TOBACCO USE [facility] PAST YEAR [facility] [place] [facility] May 22, 2013 10:10 AM QUIT TOBACCO USE IN PAST YEAR NE CNTR [facility] [place] [facility] December 01, 2012 01:54 PM QUIT TOBACCO USE IN PAST YEAR [facility] [place] [facility] Jun 07, 2012 08:16 AM V1-PT DECLINES TOBACCO CESSATION MEDS [facility] [place] [facility] Jun 07, 2012 08:16 AM V1-PT THINKING ABOUT QUIT TOBACCO USE [facility] [place] [facility] Jan 05, 2012 09:00 AM CURRENT SMOKER intermittenly [facility] [place] [facility] Jan 05, 2012 09:00 AM V1-PT DECLINES REF TO TOBACCO CESS PRGM [facility] [place] [facility] Jan 05, 2012 09:00 AM V1-PT DECLINES TOBACCO CESSATION MEDS [facility] [place] [facility] Jan 05, 2012 09:00 AM V1-PT THINKING ABOUT QUIT TOBACCO USE [facility] [place] [facility] Feb 17, 2011 09:52 AM V1-PT DECLINES TOBACCO CESSATION MEDS [facility] [place] [place] [facility] Feb 17, 2011 09:52 AM V1-PT THINKING ABOUT QUIT TOBACCO USE [facility] [place] [facility] Aug 13, 2010 11:31 AM QUIT TOBACCO USE IN PAST YEAR [facility] Feb 19, 2010 01:26 PM QUIT TOBACCO [facility] Sep 13, 2009 11:04 AM QUIT TOBACCO USE IN PAST YEAR [facility] Feb 05, 2009 08:29 AM V1-PT DECLINES REF TO TOBACCO CESS [facility] Feb 05, 2009 08:29 AM V1-PT DECLINES TOBACCO CESSATION MEDS [facility] Feb 05, 2009 08:29 AM V1-PT THINKING ABOUT QUIT TOBACCO USE [facility] Aug 22, 2008 09:04 AM QUIT TOBACCO USE IN PAST [facility]AR [facility] Mar 12, 2008 10:40 AM V1-PT DECLINES REF TO TOBACCO CESS PR[facility] Mar 12, 2008 10:40 AM V1-PT DECLINES TOBACCO CESSATION MEDS [facility] Mar 12, 2008 10:40 AM V1-PT NOT INTERESTED IN QUIT TOBACCO USE [facility] Mar 08, 2008 09:37 AM CURRENT SMOKER smokes one pack a day for about 10 years ago. [facility] Encounter Notes: All associated encounter notes [...] Msg left on the Specialty Care at [phone] ok to leave a detailed message. Has a rash on her face from her CPAP mask. Requesting a small mask with memory foam. She has tried that from a friend and the rash went away in the past. /es/ VIKTOR TONG HAS DEBURRER MACHINE Signed: 12/06/2023 11:52 Receipt Acknowledged By: 12/07/2023 09:37 /divya/ HARVEY PENG [facility] December 06, 2023 11:50 AM TELEPHONE ENCOUNTER NOTE: LOCAL TITLE: TELEPHONE NOTE/SPECIALTY CLINIC STANDARD TITLE: TELEPHONE ENCOUNTER NOTE DATE OF NOTE: DECEMBER 06, 2023@11:50 ENTRY DATE: DECEMBER 06, 2023@11:50:45 AUTHOR: VIKTOR TONG COSIGNER: URGENCY: STATUS: COMPLETED TELEPHONE NOTE/SPECIALTY CLINIC Has ADDENDA Msg left on the Specialty Care at [phone] ok to leave a detailed message. Has a rash on her face from her CPAP mask. Requesting a small mask with memory foam. She has tried that from a friend and the rash went away in the past. /divya/ VIKTOR TONG HAS DEBURRER MACHINE Signed: 12/06/2023 11:52 Receipt Acknowledged By: 12/07/2023 09:37 /divya/ HARVEY MOLINA 12/07/2023 ADDENDUM STATUS: COMPLETED Adding RT to order mask. Thank you! /divya/ HARVEY MOLINA Signed: 12/07/2023 09:37 Receipt Acknowledged By: * AWAITING SIGNATURE * СВЕТЛАНА DHILLON * AWAITING SIGNATURE * ROHAN CROW MELISSA CAROLINE [facility]
--- OUTSIDE RECORDS SUMMARY | 2024-07-25 11:28 | XMS_ITS ---
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 Organization [place] Address [address] [place] [address] Care Team Providers Care Bucket Pusher Name Role Phone ROMANA CASTILLO Primary Care [...] [facility] (MEDICAID) [facility] May 14, 2009 [id number] SAMPLE,ROCCO MOORE PATIENT [facility] MEDICAID [facility] HUMAN [facility] May 14, 2009 [id number] SAMPLE,ROCCO MOORE PATIENT MEDICAID MEDICAID [facility] Jul 26, 2018 MEDICAI D [id number] SAMPLE,ROCCO MOORE PATIENT MEDICARE (WNR) MEDICARE (M) PART A November 24, 2015 PART A [id number] SAMPLE,ROCCO MOORE PATIENT MEDICARE (WNR) MEDICARE (M) PART B November 24, 2015 PART B [id number] ROCCO QUEZADA PATIENT Selected Encounter This section includes the information on record at [place] for the Encounter. Date/Time Encounter Type Encounter Description Reason Pro vider Source December 22, 2023 11:11 AM Outpatient Encounter [facility] Encounter Template Text not used by IN [...] - PSYCHIATRY [facility] [place] [facility] Jan 17, 2024 03:00 PM AMBULATORY - MEDICINE [facility] [place] [facility] Jan 26, 2024 09:30 AM AMBULATORY - MEDICINE [facility] [place] [facility] Feb 03, 2024 03:00 PM AMBULATORY - MEDICINE [facility] [place] [facility] Feb 14, 2024 11:00 AM AMBULATORY - PSYCHIATRY [facility] [place] [facility] Mar 06, 2024 09:00 AM AMBULATORY - MEDICINE [facility] [place] [facility] Apr 03, 2024 11:30 AM AMBULATORY - MEDICINE [facility] [place] [facility] Apr 13, 2024 11:00 AM AMBULATORY - PSYCHIATRY [facility] [place] [facility] Apr 13, 2024 02:00 PM AMBULATORY - MEDICINE [facility] [place] [facility] Apr 13, 2024 03:00 PM AMBULATORY - MEDICINE [facility] [place] [facility] May 02, 2024 11:00 AM AMBULATORY - MEDICINE [facility] [place] [facility] May 15, 2024 11:30 AM AMBULATORY - PSYCHIATRY [facility] [place] [facility] May 25, 2024 11:30 AM AMBULATORY - MEDICINE [place] [place] [facility] Active, Pending, and Scheduled Orders This section includes a listing of several types of active, pending, and scheduled orders, including clinic medications orders, diagnostic test orders, procedure orders and consult orders; where the start date of the order is 45 days before the date of the Encounter or 45 days after the date of theEncounter. The data comes from all [place] treatment facilities. Test Date/Time Test Type Test [...] and tobacco- related health factors from the [place] facility where the Encounter took place. Current Smoking Status This section includes the most current smoking, or tobacco-related health factor, from the [place] facility where the Encounter took place. Date/Time Current Smoking Status Comment Rosana humphrey Mar 31, 2023 11:00 AM VA-TOBACCO FORMER USER [facility] Tobacco Use History This section includes a history of the smoking, or tobacco-related health factors, that were collected on or before the date of the Encounter. The data comes from the [place] facility where the Encounter took place. Date/Time Smoking Status/Tobac co Use Comment Facility Mar 31, 2023 11:00 AM IN-TOBACCO QUIT 1 TO < 5 YRS [facility] Mar 25, 2022 10:30 AM VA-TOBACCO NEVER USED [facility] Mar 19, 2021 02:00 PM VA-TOBACCO FORMER USER [facility] Mar 19, 2021 02:00 PM VA-TOBACCO QUIT < 1 YEAR [facility] [place] [place] [facility] Sep 20, 2018 11:24 AM VA-TOBACCO USE DECLINED TO ANSWER IN CNTR [facility] [place] [facility] Oct 21, 2017 08:13 AM QUIT TOBACCO USE IN PAST YEAR IN CNTR [facility] [place] [facility] [facility] Dec 30, 2016 08:28 AM QUIT TOBACCO USE 1-7 YEARS AGO IN CNTR [facility] [place] [facility] [facility] Jun 04, 2016 08:43 AM QUIT TOBACCO USE 1-7 YEARS AGO [place] [facility] May 17, 2015 08:45 AM QUIT TOBACCO USE 1-7 YEARS AGO quit 2 years ago. [place] [facility]TR [facility] [place] [facility] [facility] Jun 07, 2014 09:25 AM QUIT TOBACCO USE 1-7 YEARS AGO [place] [facility] November 30, 2013 08:44 AM QUIT TOBACCO USE IN PAST YEAR [facility] [place] [place] [facility] May 22, 2013 10:10 AM QUIT TOBACCO USE IN PAST YEAR IN CNTR [facility] [place] [facility] December 01, 2012 01:54 PM QUIT TOBACCO USE IN PAST YEAR [facility] [place] [facility] Jun 07, 2012 08:16 AM V1-PT DECLINES TOBACCO CESSATION MEDS [facility] [place] [facility] [facility] Jun 07, 2012 08:16 AM V1-PT THINKING ABOUT QUIT TOBACCO USE [facility] [place] [facility] Jan 05, 2012 09:00 AM CURRENT SMOKER intermittenly [facility] [place] [facility] Jan 05, 2012 09:00 AM V1-PT DECLINES REF TO TOBACCO CESS PRGM [facility] [place] [facility] [facility] Jan 05, 2012 09:00 AM V1-PT DECLINES TOBACCO CESSATION MEDS [facility] [place] [facility] Jan 05, 2012 09:00 AM V1-PT THINKING ABOUT QUIT TOBACCO USE [facility] [place] [place] [facility] Feb 17, 2011 09:52 AM V1-PT DECLINES TOBACCO CESSATION MEDS [facility] [place] [place] [facility] Feb 17, 2011 09:52 AM V1-PT THINKING ABOUT QUIT TOBACCO USE [facility] [place] [facility] Aug 13, 2010 11:31 AM QUIT TOBACCO USE IN PAST YEAR [facility] Feb 19, 2010 01:26 PM QUIT TOBACCO USE IN PAST YEAR [facility] Sep 13, 2009 11:04 AM QUIT TOBACCO USE IN PAST YEAR [facility] Feb 05, 2009 08:29 AM V1-PT DECLINES REF TO TOBACCO CESS PRGM [facility] Feb 05, 2009 08:29 AM V1-PT DECLINES TOBACCO CESSATION MEDS [facility] Feb 05, 2009 08:29 AM V1-PT THINKING ABOUT QUIT TOBACCO USE [facility] Aug 22, 2008 09:04 AM QUIT TOBACCO USE IN PAST YEAR [facility] Mar 12, 2008 10:40 AM V1-PT [facility]CLINES [facility] Mar 12, 2008 10:40 AM V1-PT DECLINES TOBACCO CESSATION MEDS [facility] Mar 12, 2008 10:40 AM V1-PT NOT INTERESTED IN QUIT TOBACCO USE [facility] Mar 08, 2008 09:37 AM CURRENT SMOKER smokes one pack a day for about 10 years ago. [facility] Encounter Notes: All associated encounter notes [...] TRACY received a voice mail message from [place] looking to move her appointment with provider to earlier on Wednesday12/27/2023 or early in the am on Wednesday12/29/2023. JASONA returned the call and left a message for [place] that, unfortunatly, there were no earlier appointments availabe currently with provider for those time frames. AMSA left the message that could call back to see if there were any cancellations in the time frames that work better for her, at a later date. /divya/ LETI HILARIO [employer] Signed: 12/22/2023 16:15 Receipt Acknowledged By: 12/23/2023 10:16 /divya/ KOURTNEY BAILEY [employer] 12/23/2023 ADDENDUM STATUS: COMPLETED Tax Accounting Assistant reached [place] and reschyoseph appt., for 0930 hrs same day. /divya/ KOURTNEY BAILEY [employer] Signed: 12/23/2023 11:11 LETI HILARIO [facility]
--- OUTSIDE RECORDS SUMMARY | 2024-07-25 11:28 | XMS_ITS | Encounter Summary ---
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 Organization [place] Address [address] [place] [id number] Care Team Providers Care Power And Recovery Supervisor Name Role Phone ROMANA CASTILLO Primary [...] Garcia's Name Patient's Relationship to Policy Garcia [facility] (MEDICAID) MEDICAID [facility]AN [facility] May 14, 2009 [id number] SAMPLE,ROCCO MOORE PATIENT [facility] MEDICAID [facility] May 14, 2009 [id number] SAMPLE,ROCCO MOORE PATIENT MEDICAID MEDICAID [facility] Jul 26, 2018 MEDICAI D [id number] SAMPLE,ROCCO MOORE PATIENT MEDICARE (WNR) MEDICARE (M) PART A November 24, 2015 PART A [id number] SAMPLE,ROCCO MOORE PATIENT MEDICARE (WNR) MEDICARE (M) PART B November 24, 2015 PART B [id number] SAMPLE,ROCCO MOORE PATIENT Selected Encounter This section includes the information on record at VA for the Encounter. Date/Time Encounter Type Encounter Description Reason Pro vider Source IHE Encounter Template Text not used by VA
--- OUTSIDE RECORDS SUMMARY | 2024-07-25 11:28 | XMS_ITS ---
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 Organization [place] Address [address] [place] [address] Care Team Providers Care Drug Inspector Name Role Phone ROMANA CASTILLO Primary [...] Garcia's Name Patient's Relationship to Policy Garcia [facility] (MEDICAID) [facility] May 14, 2009 [id number] SAMPLE,ROCCO MOORE PATIENT [facility] MEDICAID [facility] HUMAN [facility] May 14, 2009 [id number] SAMPLE,ROCCO MOORE PATIENT MEDICAID MEDICAID [facility] Jul 26, 2018 MEDICAI D [id number] SAMPLE,ROCCO MOORE PATIENT MEDICARE (WNR) MEDICARE (M) PART A November 24, 2015 PART A [id number] SAMPLE,ROCCO MOORE PATIENT MEDICARE (WNR) MEDICARE (M) PART B November 24, 2015 PART B [id number] ROCCO QUEZADA PATIENT Selected Encounter This section includes the information on record at [place] for the Encounter. Date/Time Encounter Type Encounter Description Reason Pro vider Source Dec 27, 2023 01:30 PM Outpatient Encounter [facility] Encounter Template Text not used by [place] Plan of Treatment: Future Appointments (+ 6 months) and Future Tests (+/- 45 days) The Plan of Treatment section includes future care activities for the patient from all [place] treatmentfacilities. This section includes future appointments and future orders which are active, pending or scheduled. Future Appointments This section includes appointments that were scheduled to occur 6 months from the date of the Encounter, up to a maximum of 20 appointments. The data comes from all [place] treatment facilities. Appointment Date/Time Appointment Type Appointme nt Facility Name Jan 03, 2024 11:00 AM AMBULATORY - PSYCHIATRY [facility] [place] [facility] Jan 17, 2024 03:00 PM AMBULATORY - MEDICINE [facility] [place] [facility] Jan 26, 2024 09:30 AM AMBULATORY - MEDICINE [facility] [place] [facility] Feb 03, 2024 03:00 PM AMBULATORY - MEDICINE [facility] [place] [facility] Feb 14, 2024 11:00 AM AMBULATORY - PSYCHIATRY [facility] [place] [facility] Mar 06, 2024 09:00 AM AMBULATORY - MEDICINE [facility] [place] [facility] Apr 03, 2024 11:30 AM AMBULATORY - MEDICINE [facility] [place] [facility] Apr 13, 2024 11:00 AM AMBULATORY - PSYCHIATRY [facility] [place] [facility] Apr 13, 2024 02:00 PM AMBULATORY - MEDICINE [facility] [place] [facility] Apr 13, 2024 03:00 PM AMBULATORY - MEDICINE [facility] [place] [facility] May 02, 2024 11:00 AM AMBULATORY - MEDICINE [facility] [place] [facility] May 15, 2024 11:30 AM AMBULATORY - PSYCHIATRY [facility] [place] [facility] May 25, 2024 11:30 AM AMBULATORY - MEDICINE AR C [facility] [place] [facility] Active, Pending, and Scheduled Orders This section includes a listing of several types of active, pending, and scheduled orders, including clinic medications orders, diagnostic test orders, procedure orders and consult orders; where the start date of the order is 45 days before the date of the Encounter or 45 days after the date of theEncounter. The data comes from all [place] treatment [facility]. Test Date/Time Test Type Test Details Facility Name Jan 17, 2024 12:00 AM Laboratory - Chemistry Order BASIC METABOLIC PANEL (non-fasting) BLOOD (SST-SERUM) [facility] Jan 17, 2024 12:00 AM Laboratory - Chemistry Order LIVER FUNCTION BLOOD (SST-SERUM) [facility] Jan 17, 2024 12:00 AM Laboratory - Chemistry Order LIPID PANEL, NON FASTING BLOOD (SST-SERUM) [facility] Jan 17, 2024 12:00 AM Laboratory - Chemistry Order TSH BLOOD (SST-SERUM) [facility] Jan 17, 2024 12:00 AM Laboratory - Chemistry Order MICROALBUMIN CREATININE RATIO PANEL URINE (RANDOM) [facility] Social History: Smoking Status (Most current) and Tobacco Use (All prior to encounter date) This section includes the most current, and the historical, smoking and tobacco- related health factors from the [place] facility where the Encounter took place. Current Smoking Status This section includes the most current smoking, or tobacco-related health factor, from the [place] facility where the Encounter took place. Date/Time Current Smoking Status Comment [facility] kam Mar 31, 2023 11:00 AM AR-TOBACCO QUIT 1 TO < 5 YRS [facility] Tobacco Use History This section includes a history of the smoking, or tobacco-related health factors, that were collected on or before the date of the Encounter. The data comes from the [place] facility where the Encounter took place. Date/Time Smoking Status/Tobac co Use Comment Facility Mar 31, 2023 11:00 AM [facility]-TOBACCO QUIT 1 TO < 5 YRS [facility] Mar 25, 2022 10:30 AM VA-TOBACCO NEVER USED [facility] Mar 19, 2021 02:00 PM VA-TOBACCO FORMER USER [facility] Mar 19, 2021 02:00 PM VA-TOBACCO QUIT < 1 YEAR [facility] [place] [facility] Sep 20, 2018 11:24 AM VA-TOBACCO USE DECLINED TO ANSWER [place] [facility] [place] [facility] Oct 21, 2017 08:13 AM QUIT TOBACCO USE IN PAST YEAR [place] [facility] [place] [facility] Dec 30, 2016 08:28 AM QUIT TOBACCO USE 1-7 YEARS AGO [facility]TR [place] [facility] Jun 04, 2016 08:43 AM QUIT TOBACCO USE 1-7 YEARS AGO [facility] [place] [facility] May 17, 2015 08:45 AM QUIT TOBACCO USE 1-7 YEARS AGO quit 2 years ago. [place] [facility] Jun 07, 2014 09:25 AM QUIT TOBACCO USE 1-7 YEARS AGO [facility] [place] [facility] November 30, 2013 08:44 AM QUIT TOBACCO USE IN PAST [facility]AR [facility] [place] [facility] May 22, 2013 10:10 AM QUIT TOBACCO USE IN PAST YEAR [place] [facility] [place] [facility] December 01, 2012 01:54 PM QUIT TOBACCO USE IN PAST YEAR [facility] [place] [facility] Jun 07, 2012 08:16 AM V1-PT DECLINES TOBACCO CESSATION MEDS [facility] [place] [facility] Jun 07, 2012 08:16 AM V1-PT THINKING ABOUT QUIT TOBACCO USE [facility] [place] [facility] Jan 05, 2012 09:00 AM CURRENT SMOKER intermittenly [facility] [place] [facility] Jan 05, 2012 09:00 AM V1-PT DECLINES REF TO TOBACCO CESS PRGM [facility] [place] [facility] Jan 05, 2012 09:00 AM V1-PT DECLINES TOBACCO CESSATION MEDS [facility] [place] [facility] Jan 05, 2012 09:00 AM V1-PT THINKING ABOUT QUIT TOBACCO USE [place] [facility] [place] [facility] Feb 17, 2011 09:52 AM V1-PT DECLINES TOBACCO CESSATION MED[facility] [place] [facility] Feb 17, 2011 09:52 AM V1-PT THINKING ABOUT QUIT TOBACCO USE [facility] [place] [facility] Aug 13, 2010 11:31 AM QUIT [facility]ACCO [facility] Feb 19, 2010 01:26 PM QUIT TOBACCO USE IN PAST YEAR [facility] Sep 13, 2009 11:04 AM QUIT TOBACCO USE IN PAST YEAR [facility] Feb 05, 2009 08:29 AM V1-PT DECLINES REF TO TOBACCO CESS PRGM [facility] Feb 05, 2009 08:29 AM V1-PT DECLINES TOBACCO CESSATION MEDS [facility] Feb 05, 2009 08:29 AM V1-PT THINKING ABOUT QUIT TOBACCO USE [facility] Aug 22, 2008 09:04 AM QUIT TOBACCO USE IN PAST YEAR [facility] Mar 12, 2008 10:40 AM V1-PT DECLINES REF TO TOBACCO CESS PRGM [facility] Mar 12, 2008 10:40 AM V1-PT DECLINES TOBACCO CESSATION MEDS [facility] Mar 12, 2008 10:40 AM V1-PT NOT INTERESTED IN QUIT TOBACCO USE [facility] Mar 08, 2008 09:37 AM CURRENT SMOKER smokes one pack a day for about 10 years ago. [facility] Encounter Notes: All associated encounter notes This section contains the clinical notes associated to the Encounter. Date/Time Encounter Note(s) Provider Source December 16, 2023 10:21 AM ACCOUNTING OF DISCLOSURES NOTE: LOCAL TITLE: [facility] PRESCRIPTION DRUG MONITORING PROGRAM STANDARD TITLE: ACCOUNTING [...] standard clinical care, and in accordance with [facility] policy. Patient information was shared with the PDMP [place]. Prescription(s) filled outside the [facility] in the last 90 days are noted. However, they do not raise significant safety concerns and do not influence the treatment plan at this time. Clonazepam /es/ MATEO SCOTT JR, MD STAFF PSYCHIATRIST Signed: 12/16/2023 10:21 MATEO SCOTT MD [facility]
--- OUTSIDE RECORDS SUMMARY | 2024-07-25 11:28 | XMS_ITS | Encounter Summary ---
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 [facility] [place] Address [address] [place] [id number] Care Team Providers Care Business Mail Entry Clerk Name Role Phone ROMANA CASTILLO Primary [...] to Policy Garcia [facility] (MEDICAID) [facility]ICAID [facility] May 14, 2009 [id number] SAMPLE,ROCCO MOORE PATIENT [facility] MEDICAID [facility] May 14, 2009 [id number] SAMPLE,ROCCO MOORE PATIENT MEDICAID MEDICAID [facility] [place] Jul 26, 2018 MEDICAI D [id number] SAMPLE,ROCCO MOORE PATIENT MEDICARE (WNR) MEDICARE (M) PART A November 24, 2015 PART A [id number] [phone] SAMPLE,ROCCO MOORE PATIENT MEDICARE (WNR) MEDICARE (M) PART B November 24, 2015 PART B [id number] ROCCO QUEZADA PATIENT Selected Encounter This section includes the information on record at [place] for the Encounter. Date/Time Encounter Type Encounter Description Reason Pro vider Source Nov 17, 2023 11:25 AM Outpatient Encounter PAIN CLINIC [facility] Encounter Template Text not used by [place] Plan of Treatment: Future Appointments (+ 6 months) and Future Tests (+/- 45 days) The Plan of Treatment section includes future care activities for the patient from all [place] treatmentfaadventhealthities. This section includes future appointments and future [...] AMBULATORY - PSYCHIATRY [place] [facility] [place] [facility] Jan 17, 2024 03:00 PM AMBULATORY - MEDICINE [place] [facility] [facility] Jan 26, 2024 09:30 AM AMBULATORY - MEDICINE [place] [facility] [place] [facility] Feb 03, 2024 03:00 PM AMBULATORY - MEDICINE [place] [facility] [place] [facility] Feb 14, 2024 11:00 AM AMBULATORY - PSYCHIATRY [facility] [place] [facility] Mar 06, 2024 09:00 AM AMBULATORY - MEDICINE [place] [facility] [facility] Apr 03, 2024 11:30 AM AMBULATORY - MEDICINE [place] [facility] [facility] Apr 13, 2024 11:00 AM AMBULATORY - PSYCHIATRY [place] [facility] [place] [facility] Apr 13, 2024 02:00 PM AMBULATORY - MEDICINE [place] [facility] [place] [facility] Apr 13, 2024 03:00 PM AMBULATORY - MEDICINE [place] [facility] [place] [facility] May 02, 2024 11:00 AM AMBULATORY - MEDICINE [place] [facility] [place] [facility] May 15, 2024 11:30 AM AMBULATORY - PSYCHIATRY [place] [facility] [place] [facility] Social History: Smoking Status (Most current) and [...] 2023 11:00 AM VA-TOBACCO FORMER USER [facility] Tobacco Use History This section includes a history of the smoking, or tobacco-related health factors, that were collected on or before the date of the Encounter. The data comes from the [place] facility where the Encounter took place. Date/Time Smoking Status/Tobac co Use Comment Facility Mar 31, 2023 11:00 AM VA-TOBACCO QUIT 1 TO < 5 YRS [place] [facility] [place] [facility] Mar 25, 2022 10:30 AM VA-TOBACCO NEVER USED [place] [facility] [place] [facility] Mar 19, 2021 02:00 PM VA-TOBACCO FORMER USER [place] [facility] [place] [facility] Mar 19, 2021 02:00 PM VA-TOBACCO QUIT < 1 YEAR [place] [facility] [place] [facility] Sep 20, 2018 11:24 AM VA-TOBACCO USE DECLINED TO ANSWER [place] [facility] [facility] Oct 21, 2017 08:13 AM QUIT TOBACCO USE IN PAST YEAR [place] [facility] [place] [facility] Dec 30, 2016 08:28 AM QUIT TOBACCO USE 1-7 YEARS AGO [place] [facility] [facility] Jun 04, 2016 08:43 AM QUIT TOBACCO USE 1-7 YEARS AGO [place] [facility] [place] [facility] May 17, 2015 08:45 AM QUIT TOBACCO USE 1-7 YEARS AGO quit 2 years ago. [place] [facility] [place] [facility] Jun 07, 2014 09:25 AM QUIT TOBACCO USE 1-7 YEARS AGO [place] [facility] [place] [facility] November 30, 2013 08:44 AM QUIT TOBACCO USE IN PAST YEAR [place] [facility] [place] [facility] May 22, 2013 10:10 AM QUIT TOBACCO USE IN PAST YEAR [place] [facility] [facility] December 01, 2012 01:54 PM QUIT TOBACCO USE IN PAST YEAR [place] [facility] [facility] Jun 07, 2012 08:16 AM V1-PT DECLINES TOBACCO CESSATION MEDS [place] [facility] [place] [facility] Jun 07, 2012 08:16 AM V1-PT THINKING ABOUT QUIT TOBACCO USE [facility] [place] [facility] Jan 05, 2012 09:00 AM CURRENT SMOKER intermittenly [facility] [place] [facility] Jan 05, 2012 09:00 AM V1-PT DECLINES REF TO TOBACCO CESS [facility] [place] [facility] Jan 05, 2012 09:00 AM V1-PT DECLINES TOBACCO CESSATION MEDS [facility] [facility] Jan 05, 2012 09:00 AM V1-PT THINKING ABOUT QUIT TOBACCO USE [place] [facility] [place] [facility] Feb 17, 2011 09:52 AM V1-PT DECLINES TOBACCO CESSATION MEDS [place] [facility] [place] [facility] Feb 17, 2011 09:52 AM V1-PT THINKING ABOUT QUIT TOBACCO USE [place] [facility] [facility] Aug 13, 2010 11:31 AM QUIT TOBACCO USE IN PAST YEAR [facility] [place] [facility] Feb 19, 2010 01:26 PM QUIT TOBACCO USE IN PAST YEAR [place] [facility] [place] [facility] Sep 13, 2009 11:04 AM QUIT TOBACCO USE IN PAST YEAR [facility] [place] [facility] Feb 05, 2009 08:29 AM V1-PT DECLINES REF TO TOBACCO CESS PRGM [facility] [place] [facility] Feb 05, 2009 08:29 AM V1-PT DECLINES TOBACCO CESSATION MEDS [facility] [place] [facility] Feb 05, 2009 08:29 AM V1-PT THINKING ABOUT QUIT TOBACCO USE [place] [facility] [facility] Aug 22, 2008 09:04 AM QUIT TOBACCO USE IN PAST YEAR [place] [facility] [facility] Mar 12, 2008 10:40 AM V1-PT DECLINES REF TO TOBACCO CESS PRGM [place] [facility] [facility] Mar 12, 2008 10:40 AM V1-PT DECLINES TOBACCO CESSATION MEDS [place] [facility] [place] [facility] Mar 12, 2008 10:40 AM V1-PT NOT INTERESTED IN QUIT TOBACCO USE [facility] [place] [facility] Mar 08, 2008 09:37 AM CURRENT SMOKER smokes one pack a day for about 10 years ago. [facility] Encounter Notes: All associated encounter notes This section contains the clinical notes associated to the Encounter. Date/Time Encounter Note(s) Provider Source Nov 17, 2023 11:25 AM LETTERS: LOCAL TITLE: PATIENT LETTER (B) STANDARD TITLE: LETTERS DATE OF NOTE: NOV 17, 2023@11:25 ENTRY DATE: NOV 17, 2023@11:25:10 AUTHOR: LORI QUEVEDO EXP COSIGNER: URGENCY: STATUS: COMPLETED VA [facility] Toll Free Number [facility] scheduling can be reached at ext. [phone] [facility]- ext. [phone] [facility]- ext. [phone] [facility]- ext. [phone] NOV 17, 2023 REID QUEZADA [address] [place], [place] [address] Dear SAMPLE,REID Thank you for choosing the Department of [facility] Affairs ([place]) Medical [place] as your primary choice for health care. As a partner in your health care, we are contacting you in writing since we have been unsuccessful in our attempts to reach you to date. We want to assure you we are doing everything possible to schedule Veterans for their VA medical care appointments. Our records indicate you are due for an appointment in PAIN CLINIC. If you would like to be seen, please contact [facility] at ext. [phone] to schedule an appointment. 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 Sincerely, [facility] [address] [facility] [address] [place] [address] [place] [address] [facility] [address] [place] [address] [place] [address] ext. [phone] [facility] [address] [facility] [address] [place] [address] [place] [address] ext. [phone] [facility] [address] [address] ext. [phone] LORI QUEVEDO [facility] Nov 17, 2023 11:25 AM ADMINISTRATIVE NOTE: LOCAL TITLE: ADMINISTRATIVE RECALL NOTE STANDARD TITLE: ADMINISTRATIVE NOTE DATE OF NOTE: NOV 17, 2023@11:25 ENTRY DATE: NOV 17, 2023@11:25:42 AUTHOR: LORI QUEVEDO COSIGNER: URGENCY: STATUS: COMPLETED ADMINISTRATIVE RECALL NOTE Has ADDENDA RTC orders: Unable to contact patient: Attempts to contact: 1st attempt: Left voicemail 2nd attempt: Letter mailed Disposition on November 3rd attempt: 4th attempt: PID 01/18/2024 /divya/ LORI QUEVEDO Signed: 11/17/2023 11:26 11/19/2023 ADDENDUM STATUS: COMPLETED 3RD ATTEMPT- LVM /es/ LORI QUEVEDO Signed: 11/19/2023 10:01 12/01/2023 ADDENDUM STATUS: COMPLETED 4TH ATTEMPT- LVM /es/ BEULAH LOPEZ [employer] SUPERVISOR Signed: 12/01/2023 15:44 LORI QUEVEDO [facility]
--- OUTSIDE RECORDS SUMMARY | 2024-07-25 11:28 | XMS_ITS | Encounter Summary ---
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 [place] Organization [facility] [place] Address [address] [place] [address] Care Team Providers Care Travel Money Advisor Name Role Phone ROMANA CASTILLO Primary Care [...] Garcia [facility] (MEDICAID) [facility]ICAID [facility] May 14, 2009 [id number] SAMPLE,ROCCO MOORE PATIENT [facility] MEDICAID [facility]UM[facility] May 14, 2009 [id number] SAMPLE,ROCCO MOORE PATIENT MEDICAID MEDICAID [facility] [place] Jul 26, 2018 MEDICAI D [id number] SAMPLE,ROCCO MOORE PATIENT MEDICARE (WNR) MEDICARE (M) PART A November 24, 2015 PART A [id number] SAMPLE,ROCCO MOORE PATIENT MEDICARE (WNR) MEDICARE (M) PART B November 24, 2015 PART B [id number] ROCCO QUEZADA PATIENT Selected Encounter This section includes the information on record at [place] for the Encounter. Date/Time Encounter Type Encounter Description Reason Provider Source December 07, 2023 11:40 AM CPAP FULL FACE MASK TELEPHONE/MEDICINE ICD-10-CM G47.39 Other sleep apnea TRISTINROHAN A E Encounter Template Text not used by [place] Assessments - Encounter Diagnoses This section includes the primary and secondary diagnoses documented for the Encounter. Date/Time Primary/Secondary Diagnosis Diagnosis Name Provider Source December 07, 2023 11:40 AM PRIMARY Other sleep apnea ROHAN CROW [place] [facility] [place] [facility] Plan of Treatment: Future Appointments (+ [...] 03, 2024 11:00 AM AMBULATORY - PSYCHIATRY [place] [facility] [place] [facility] Jan 17, 2024 03:00 PM AMBULATORY - MEDICINE [place] C [facility] [place] [facility] Jan 26, 2024 09:30 AM AMBULATORY - MEDICINE [place] C [facility] [place] [facility] Feb 03, 2024 03:00 PM AMBULATORY - MEDICINE [place] C [facility] [place] [facility] Feb 14, 2024 11:00 AM AMBULATORY - PSYCHIATRY [place] [facility] [place] [facility] Mar 06, 2024 09:00 AM AMBULATORY - MEDICINE [place] C [facility] [place] [facility] Apr 03, 2024 11:30 AM AMBULATORY - MEDICINE OR C [facility] [place] [facility] Apr 13, 2024 11:00 AM AMBULATORY - PSYCHIATRY [place] [facility] [place] [facility] Apr 13, 2024 02:00 PM AMBULATORY - MEDICINE [place] C [facility] [place] [facility] Apr 13, 2024 03:00 PM AMBULATORY - MEDICINE [place] C [facility] [place] [facility] May 02, 2024 11:00 AM AMBULATORY - MEDICINE [place] C [facility] [place] [facility] May 15, 2024 11:30 AM AMBULATORY - PSYCHIATRY [facility] May 25, 2024 11:30 AM AMBULATORY - MEDICINE [facility] Active, Pending, and Scheduled Orders This [...] comes from all [facility]. Test Date/Time Test Type Test Details Facility Name Jan 17, 2024 12:00 AM Laboratory - Chemistry Order BASIC METABOLIC PANEL (non-fasting) BLOOD (SST-SERUM) [facility] Jan 17, 2024 12:00 AM Laboratory - Chemistry Order LIPID PANEL, NON FASTING BLOOD (SST-SERUM) [facility] Jan 17, 2024 12:00 AM Laboratory - Chemistry Order LIVER FUNCTION BLOOD (SST-SERUM) [facility] Jan 17, 2024 12:00 AM Laboratory - Chemistry Order TSH BLOOD (SST-SERUM) [facility] Jan 17, 2024 12:00 AM Laboratory - Chemistry Order MICROALBUMIN CREATININE RATIO PANEL URINE (RANDOM) [facility] Social History: Smoking Status (Most current) [...] took place. Date/Time Current Smoking Status Comment [facility] it Mar 31, 2023 11:00 AM [place]-TOBACCO QUIT 1 TO < 5 YRS [facility] Tobacco Use History This section includes a history of the smoking, or tobacco-related health factors, that were collected on or before the date of the Encounter. The data comes from the [place] facility where the Encounter took place. Date/Time Smoking Status/Tobac co Use Comment Facility Mar 31, 2023 11:00 AM VA-TOBACCO QUIT 1 TO < 5 YRS [place] [facility] [place] [facility] Mar 25, 2022 10:30 AM [facility]ACCO [facility] [place] [facility] Mar 19, 2021 02:00 PM VA-TOBACCO FORMER USER [place] [facility]TR [place] [facility] Mar 19, 2021 02:00 PM VA-TOBACCO QUIT < 1 YEAR [facility] [place] [facility] Sep 20, 2018 11:24 AM VA-TOBACCO USE DECLINED TO [facility]SWER [facility] [place] [facility] Oct 21, 2017 08:13 AM QUIT TOBACCO USE IN PAST YEAR [place] [facility] [place] [facility] Dec 30, 2016 08:28 AM QUIT TOBACCO USE 1-7 YEARS AGO [place] [facility] [place] [facility] Jun 04, 2016 08:43 AM QUIT TOBACCO USE 1-7 YEARS AGO [facility] [place] [facility] May 17, 2015 08:45 AM QUIT TOBACCO USE 1-7 YEARS AGO quit 2 years ago. [facility] [place] [facility] Jun 07, 2014 09:25 AM QUIT TOBACCO USE 1-7 YEARS AGO [place] [facility] [place] [facility] November 30, 2013 08:44 AM QUIT TOBACCO USE IN PAST [facility] [place] [facility] May 22, 2013 10:10 AM QUIT TOBACCO USE IN PAST [facility] [place] [facility] December 01, 2012 01:54 PM QUIT TOBACCO USE IN PAST YEAR [facility] [place] [facility] Jun 07, 2012 08:16 AM V1-PT DECLINES TOBACCO CESSATION MEDS [facility] [place] [facility] Jun 07, 2012 08:16 AM V1-PT THINKING ABOUT QUIT TOBACCO USE [facility] [place] [facility] Jan 05, 2012 09:00 AM CURRENT SMOKER intermittenly [facility] [place] [facility] Jan 05, 2012 09:00 AM V1-PT DECLINES REF TO TOBACCO CESS PRGM [facility] [place] [facility] Jan 05, 2012 09:00 AM V1-PT DECLINES TOBACCO CESSATION MEDS [facility] [place] [facility] Jan 05, 2012 09:00 AM V1-PT THINKING ABOUT [facility]IT [facility] Feb 17, 2011 09:52 AM V1-PT DECLINES TOBACCO CESSATION [facility] Feb 17, 2011 09:52 AM V1-PT THINKING ABOUT QUIT [facility] Aug 13, 2010 11:31 AM QUIT TOBACCO USE IN PAST YEAR [facility] Feb 19, 2010 01:26 PM QUIT TOBACCO USE IN PAST YEAR [facility] Sep 13, 2009 11:04 AM QUIT TOBACCO USE IN PAST YEAR [facility] Feb 05, 2009 08:29 AM V1-PT DECLINES REF TO TOBACCO CESS PRGM [facility] Feb 05, 2009 08:29 AM V1-PT DECLINES TOBACCO CESSATION MEDS [facility] Feb 05, 2009 08:29 AM V1-PT THINKING ABOUT QUIT TOBACCO USE [facility] Aug 22, 2008 09:04 AM QUIT TOBACCO USE IN PAST YEAR [facility] Mar 12, 2008 10:40 AM V1-PT DECLINES REF TO TOBACCO CESS PRGM [facility] Mar 12, 2008 10:40 AM V1-PT DECLINES TOBACCO CESSATION MEDS [facility] Mar 12, 2008 10:40 AM V1-PT NOT INTERESTED IN QUIT TOBACCO USE [facility] Mar 08, 2008 09:37 AM CURRENT SMOKER smokes one pack a day for about 10 years ago. [facility] Encounter Notes: All associated encounter notes This section contains the clinical notes associated to the Encounter. Date/Time Encounter Note(s) Provider Source December 07, 2023 11:40 AM RESPIRATORY THERAP Y NOTE: LOCAL TITLE: RESPIRATORY THERAPY NOTE(BLANK) STANDARD TITLE: RESPIRATORY THERAPY NOTE DATE OF NOTE: DECEMBER 07, 2023@11:40 ENTRY DATE: DECEMBER 07, 2023@11:40:50 AUTHOR: ROHAN CROW COSIGNER: URGENCY: STATUS: COMPLETED , diagnosed with sleep apnea, contacted clinic for a PAP supplies. is compliant and supplies will be ordered from [facility]. She was ordered the AirTouch small full face mask from [facility]. left on the [facility] at [phone] ok to leave a detailed message. Has a rash on her face from her CPAP mask. Requesting a small mask with memory foam. She has tried that from a friend and the rash went away in the past. /es/ ROHAN CROW, SERVICE SPECIALIST RESPIRATORY THERAPIST Signed: 12/07/2023 11:42 ORHAN CROW
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
--- OUTSIDE RECORDS SUMMARY | 2024-07-25 11:29 | XMS_ITS ---
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 [place] Organization [facility] [place] Address [address] [place] [address] Care Team Providers Care Transfer Clerk Name Role Phone ROMANA CASTILLO Primary [...] Garcia's Name Patient's Relationship to Policy Garcia [facility] (MEDICAID) [facility]ICAID [facility] May 14, 2009 [id number] SAMPLE,ROCCO MOORE PATIENT [facility] MEDICAID [facility] May 14, 2009 [id number] SAMPLE,ROCCO MOORE PATIENT MEDICAID MEDICAID [facility] Jul 26, 2018 MEDICAI D [id number] SAMPLE,ROCCO MOORE PATIENT MEDICARE (WNR) MEDICARE (M) PART A November 24, 2015 PART A [id number] SAMPLE,ROCCO MOORE PATIENT MEDICARE (WNR) MEDICARE (M) PART B November 24, 2015 PART B [id number] SAMPLE,ROCCO MOORE PATIENT Selected Encounter This section includes the information on record at MD for the Encounter. Date/Time Encounter Type Encounter Description Reason Provider Source Aug 05, 2023 04:00 PM OFFICE O/P EST SF [facility] - IND ICD-10-CM F41.9 Anxiety disorder, unspecified BAYRON SCOTT MD E Encounter Template Text not used by MD Assessments - Encounter Diagnoses This section includes the primary and secondary diagnoses documented for the Encounter. Date/Time Primary/Secondary Diagnosis Diagnosis Name Provider Source Aug 05, 2023 04:37 PM PRIMARY Anxiety disorder, unspecified REHAN SCOTT MD MD [place] [place] [facility] Aug 05, 2023 04:37 PM SECONDARY Insomnia, unspecified REHAN SCOTT MD [facility] [place] [facility] Aug 05, 2023 04:37 PM SECONDARY Opioid dependence, uncomplicated [facility] [place] [facility] Plan of Treatment: Future Appointments (+ 6 months) and Future Tests (+/- 45 days) The Plan of Treatment section includes future care activities for the patient [facility] This section includes future appointments and [...] 18, 2023 12:00 PM AMBULATORY - MEDICINE MD C NTRL [place] [facility] Sep 08, 2023 01:00 PM AMBULATORY - MEDICINE MD C NTRL [place] [facility] Sep 08, 2023 01:30 PM AMBULATORY - MEDICINE MD C NTRL [place] [facility] Oct 06, 2023 09:00 AM AMBULATORY - MEDICINE MD C NTRL [place] [facility] Oct 07, 2023 01:00 PM AMBULATORY - PSYCHIATRY MD CNTRL [place] [facility] Oct 25, 2023 11:00 AM AMBULATORY - MEDICINE MD C NTRL [place] [facility] Nov 09, 2023 09:00 AM AMBULATORY - MEDICINE MD C NTRL [place] [facility] Nov 17, 2023 09:30 AM AMBULATORY - MEDICINE VA C NTRL [place] [facility] Jan 03, 2024 11:00 AM AMBULATORY - PSYCHIATRY VA [facility]L [place] [facility] Jan 17, 2024 03:00 PM AMBULATORY - MEDICINE MD C NTRL [place] [facility] Jan 26, 2024 09:30 AM AMBULATORY - MEDICINE MD C NTRL [place] [facility] Feb 03, 2024 03:00 PM AMBULATORY - MEDICINE MD C NTRL [place] [facility] Social History: Smoking Status (Most current) [...] took place. Date/Time Current Smoking Status Comment [facility] Mar 31, 2023 11:00 AM VA-TOBACCO FOR[facility] USER [facility] Tobacco Use History This section includes a history of the smoking, or tobacco-related health factors, that were collected on or before the date of the Encounter. The data comes from the [place] facility where the Encounter took place. Date/Time Smoking Status/Tobac co Use Comment Facility Mar 31, 2023 11:00 AM VA-TOBACCO QUIT 1 TO < 5 YRS MD [facility]TRL [facility] [facility] Mar 25, 2022 10:30 AM VA-TOBACCO NEVER USED MD CNTRL [facility] [facility] Mar 19, 2021 02:00 PM VA-TOBACCO FORMER USER MD CNTRL [facility] [facility] Mar 19, 2021 02:00 PM VA-TOBACCO QUIT < 1 YEAR VA [facility] [place] [facility] Sep 20, 2018 11:24 AM VA-TOBACCO USE DECLINED TO ANSWER MD CNTRL [place] [facility] Oct 21, 2017 08:13 AM QUIT TOBACCO USE IN PAST YEAR [place] [facility] [facility] Dec 30, 2016 08:28 AM QUIT TOBACCO USE 1-7 YEARS AGO MD [facility]TRL [place] [facility] Jun 04, 2016 08:43 AM QUIT TOBACCO USE 1-7 YEARS AGO MD [facility]L [place] [facility] May 17, 2015 08:45 AM QUIT TOBACCO USE 1-7 YEARS AGO quit 2 years ago. MD CNTR [facility] [facility] Jun 07, 2014 09:25 AM QUIT TOBACCO USE 1-7 YEARS AGO VA [facility] [place] [facility] November 30, 2013 08:44 AM QUIT [facility]BACCO [facility] [place] [facility] May 22, 2013 10:10 AM QUIT TOBACCO USE IN PAST YEAR MD CNTR [place] [facility] December 01, 2012 01:54 PM QUIT TOBACCO USE IN PAST YEAR MD CNTR [facility] [facility] Jun 07, 2012 08:16 AM V1-PT DECLINES TOBACCO CESSATION MEDS MD CNTR [place] [facility] Jun 07, 2012 08:16 AM V1-PT THINKING ABOUT QUIT [facility]BACCO [facility] [place] [facility] Jan 05, 2012 09:00 AM CURRENT SMOKER intermittenly [facility] [place] [place] [facility] Jan 05, 2012 09:00 AM V1-PT DECLINES REF TO TOBACCO CESS PRGM MD CNTR [place] [facility] Jan 05, 2012 09:00 AM V1-PT DECLINES TOBACCO CESSATION MEDS [facility] [place] [facility] Jan 05, 2012 09:00 AM V1-PT THINKING ABOUT QUIT [facility]ACCO [facility] [place] [facility] Feb 17, 2011 09:52 AM V1-PT DECLINES TOBACCO CESSATION MEDS [facility] [place] [facility] Feb 17, 2011 09:52 AM V1-PT THINKING ABOUT QUIT TOBACCO USE MD CNTR [place] [facility] Aug 13, 2010 11:31 AM QUIT TOBACCO USE IN PAST YEAR [facility] [place] [facility] Feb 19, 2010 01:26 PM QUIT TOBACCO USE IN PAST YEAR [facility] [place] [facility] Sep 13, 2009 11:04 AM QUIT TOBACCO USE IN PAST YEAR MD CNTR [place] [facility] Feb 05, 2009 08:29 AM V1-PT DECLINES REF TO TOBACCO CESS PRGM [facility] [place] [facility] Feb 05, 2009 08:29 AM V1-PT DECLINES TOBACCO CESSATION [facility]S [facility] Feb 05, 2009 08:29 AM V1-PT THINKING ABOUT QUIT TOBACCO USE [facility] Aug 22, 2008 09:04 AM QUIT TOBACCO USE IN PAST YEAR [facility] Mar 12, 2008 10:40 AM V1-PT DECLINES REF TO TOBACCO CESS PRGM [facility] Mar 12, 2008 10:40 AM V1-PT DECLINES TOBACCO CESSATION MEDS [facility] Mar 12, 2008 10:40 AM V1-PT NOT INTERESTED IN QUIT TOBACCO USE [facility] Mar 08, 2008 09:37 AM CURRENT SMOKER smokes one pack a day for about 10 years ago. [facility] Encounter Notes: All associated encounter notes This section contains the clinical notes associated to the Encounter. Date/Time Encounter Note(s) Provider Source Aug 05, 2023 04:21 PM ACCOUNTING OF DISCLOSURES NOTE: LOCAL TITLE: STATE PRESCRIPTION DRUG MONITORING PROGRAM STANDARD TITLE: ACCOUNTING OF DISCLOSURES NOTE DATE OF NOTE: AUG 05, 2023@16:21:22 ENTRY DATE: AUG 05, 2023@16:21:22 AUTHOR: MATEO SCOTT EXP COSIGNER: URGENCY: STATUS: COMPLETED This PDMP query was submitted by Mateo Scott MD, MD. The clinical justification for this PDMP query is to review controlled substances prescribed outside of the MD, and any additional information that may become available, as an important component of standard clinical care, and in accordance with [facility] policy. Patient information was shared with the PDMP Appriss Brooten. No prescription(s) for controlled substances outside the MD were found in the last 90 days. /divya/ MATEO SCOTT JR, MD STAFF PSYCHIATRIST Signed: 08/05/2023 16:27 MATEO SCOTT MD [facility] Aug 05, 2023 04:13 PM PSYCHIATRY NOTE: LOCAL TITLE: PSYCHIATRY/FOLLOW-UP NOTE STANDARD TITLE: PSYCHIATRY NOTE DATE OF NOTE: AUG 05, 2023@16:13 ENTRY DATE: AUG 05, 2023@16:13:21 AUTHOR: MATEO SCOTT EXP COSIGNER: URGENCY: STATUS: COMPLETED Medications were reconciled with and she declines a copy of her medication list. Active Outpatient Medications: 1) APIXABAN 5MG TAB TAKE ONE TABLET BY MOUTH EVERY 12 HOURS 2) ASPIRIN 81MG EC TAB TAKE ONE TABLET BY MOUTH ONCE DAILY TO PREVENT STROKE/HEART ATTACK 3) ATORVASTATIN CALCIUM 80MG TAB TAKE ONE TABLET BY MOUTH ONCE DAILY FOR CHOLESTEROL 4) BUPRENORPHINE HCL 2MG SUBLINGUAL TAB DISSOLVE ONE TABLET UNDER THE TONGUE THREE TIMES A DAY 5) CLONAZEPAM 0.5MG TAB TAKE ONE TABLET BY MOUTH EVERY MORNING AND TAKE ONE- HALF TABLET TWICE DAILY NEEDED 6) DILTIAZEM (EQV-TIAZAC) 180MG 24HR CAP TAKE ONE CAPSULE BY MOUTH ONCE DAILY 7) DOCUSATE NA 100MG CAP TAKE ONE CAPSULE BY MOUTH ONCE DAILY TO SOFTEN STOOL 8) LISINOPRIL 40MG TAB TAKE ONE TABLET BY MOUTH ONCE DAILY TO CONTROL BLOOD PRESSURE 9) OXYCODONE HCL 5MG TAB NOT SA TAKE TWO TABLETS BY MOUTH EVERY 4 HOURS NEEDED FOR PAIN 10) TEMAZEPAM 30MG CAP TAKE ONE CAPSULE BY MOUTH AT BEDTIME NEEDED 11) THEOPHYLLINE (JOSE-24) 400MG SA CAP TAKE ONE [...] DIPHTHERIA TOXOID 0.5ML INTRAMUSCULARLY NOW 6) Non-VA [id number]/VILANTERO L25MCG 30D INH 1 INHALATION BY MOUTH ONCE DAILY Active Outpatient Medications (including Supplies): REID QUEZADA is a 63 yo, female who [facility] as an unscheduled visit for 16 minutes for medication management. Two identifiers were used. CC: I'm going through pain clinic with Dr. Solorio (for her buprenorphine). I'm doing fine Vet was getting the clonazepam and temazepam from her media reconciliation specialist and he retired. Vet states she has been on the same dose of clonazepam an temazepam for 4 years. No alcohol or substance use, no. No complaints, no cravings, and no adverse side effects from current medications were reported, no . Mood is stable, it's ok . Sleep and appetite is, ok. Discussed continuation of present medications as above. Patient education given including that benzodiazepines are not indicted half-way and that there is a possible interaction with opioids causing respiratory depression. Also discussed not taking anyone else's medications or giving her medications to anyone else and to secure and protect her medications from theft and children. Vet is agreeable. MSE: REID QUEZADA is an obese, 63 yo, female who is casually dressed wearing sweatpants, a hooded sweatshirt, an O2 cannula, a [...] and judgement is good. Assessment: Anxiety NOS. Insomnia. Opioid Use Disorder on pain therapy Plan: Continue present medications as above. Encouraged vet to take medications as prescribed. RTC in 2-3 months or earlier if needed. Vet states PCP is not willing to take over refills of clonazepam and temazepam. /divya/ MATEO SCOTT JR, MD STAFF PSYCHIATRIST Signed: 08/05/2023 16:37 MATEO SCOTT MD [facility]
--- OUTSIDE RECORDS SUMMARY | 2024-07-25 11:29 | XMS_ITS | Encounter Summary ---
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 Address [address] [place] [id number] Care Team Providers Care Clinical Nurse Educator Name Role Phone ROMANA CASTILLO Primary [...] Name Patient's Relationship to Policy Garcia [facility] (MEDICAID) [facility] May 14, 2009 [id number] SAMPLE,ROCCO MOORE PATIENT [facility]ICAID [facility] May 14, 2009 [id number] SAMPLE,ROCCO MOORE PATIENT MEDICAID MEDICAID [facility] Jul 26, 2018 MEDICAI D [id number] SAMPLE,ROCCO MOORE PATIENT MEDICARE (WNR) MEDICARE (M) PART A November 24, 2015 PART A [id number] SAMPLE,ROCCO MOORE PATIENT MEDICARE (WNR) MEDICARE (M) PART B November 24, 2015 PART B [id number] ROCCO QUEZADA PATIENT Selected Encounter This [...] 18, 2023 12:00 PM AMBULATORY - MEDICINE [place] C [facility] [facility] Sep 08, 2023 01:00 PM AMBULATORY - MEDICINE [place] C NTR[place] [facility] Sep 08, 2023 01:30 PM AMBULATORY - MEDICINE [place] C NTR[place] [facility] Oct 06, 2023 09:00 AM AMBULATORY - MEDICINE [place] C NTRL [place] [facility] Oct 07, 2023 01:00 PM AMBULATORY - PSYCHIATRY [place] [facility] [place] [facility] Oct 25, 2023 11:00 AM AMBULATORY - MEDICINE [place] C NTRL [place] [facility] Nov 09, 2023 09:00 AM AMBULATORY - MEDICINE [place] C [facility]TRL [place] [facility] Nov 17, 2023 09:30 AM AMBULATORY - MEDICINE [place] C NTR[place] [facility] Jan 03, 2024 11:00 AM AMBULATORY - PSYCHIATRY [place] [facility] [place] [facility] Jan 17, 2024 03:00 PM AMBULATORY - MEDICINE [place] C NTR[place] [facility] Jan 26, 2024 09:30 AM AMBULATORY - MEDICINE [place] C NTRL [place] [facility] Feb 03, 2024 03:00 PM AMBULATORY - MEDICINE [place] C NTRL [place] [facility] Feb 14, 2024 11:00 AM AMBULATORY - PSYCHIATRY [place] CN[facility] [place] [facility] Social [...] 31, 2023 11:00 AM VA-TOBACCO FORMER USER [facility] Tobacco Use History This section includes a history of the smoking, or tobacco-related health factors, that were collected on or before the date of the Encounter. The data comes from the [place] facility where the Encounter took place. Date/Time Smoking Status/Tobac co Use Comment Facility Mar 31, 2023 11:00 AM VA-TOBACCO QUIT 1 TO < 5 YRS [place] [facility] [place] [facility] Mar 25, 2022 10:30 AM VA-TOBACCO NEVER USED [place] [facility] [facility] Mar 19, 2021 02:00 PM VA-TOBACCO FORMER USER [place] [facility] [place] [facility] Mar 19, 2021 02:00 PM VA-TOBACCO QUIT < 1 YEAR [place] [facility] [place] [facility] Sep 20, 2018 11:24 AM VA-TOBACCO USE DECLINED TO ANSWER [place] [facility] [place] [facility] Oct 21, 2017 08:13 AM QUIT TOBACCO USE IN PAST YEAR [place] [facility] [place] [facility] Dec 30, 2016 08:28 AM QUIT TOBACCO USE 1-7 YEARS AGO [place] [facility] [place] [facility] Jun 04, 2016 08:43 AM QUIT TOBACCO USE 1-7 YEARS AGO [place] [facility] [place] [facility] May 17, 2015 08:45 AM QUIT TOBACCO USE 1-7 YEARS AGO quit 2 years ago. [place] [facility] [facility] Jun 07, 2014 09:25 AM QUIT TOBACCO USE 1-7 YEARS AGO [place] [facility] [place] [facility] November 30, 2013 08:44 AM QUIT TOBACCO USE IN PAST YEAR [place] [facility] [place] [facility] May 22, 2013 10:10 AM QUIT TOBACCO USE IN PAST YEAR [place] [facility] [place] [facility] December 01, 2012 01:54 PM QUIT TOBACCO USE IN PAST YEAR [place] [facility]TR [place] [facility] Jun 07, [...] QUIT TOBACCO USE [place] [facility]TR [place] [facility] Feb 17, 2011 09:52 AM V1-PT DECLINES TOBACCO CESSATION MEDS [place] [facility] [place] [facility] Feb 17, 2011 09:52 AM V1-PT THINKING ABOUT QUIT TOBACCO USE [place] CNTR [place] [facility] Aug 13, 2010 11:31 AM QUIT TOBACCO USE IN PAST YEAR [place] [facility] [place] [facility] Feb 19, 2010 01:26 PM QUIT TOBACCO USE IN PAST YEAR [place] CNTR [place] [facility] Sep 13, 2009 11:04 AM QUIT TOBACCO USE IN PAST YEAR [place] [facility]TR [place] [facility] Feb 05, 2009 08:29 AM V1-PT DECLINES REF TO TOBACCO [facility]ESS [facility] [place] [facility] Feb 05, 2009 08:29 AM V1-PT DECLINES TOBACCO CESSATION MEDS [place] [facility]TR [place] [facility] Feb 05, 2009 08:29 AM V1-PT THINKING ABOUT QUIT TOBACCO USE [place] [facility] [place] [facility] Aug 22, 2008 09:04 AM QUIT TOBACCO USE IN PAST YEAR [place] CNTR [place] [facility] Mar 12, 2008 10:40 AM V1-PT DECLINES REF TO TOBACCO CESS PRGM [place] [facility] [place] [facility] Mar 12, 2008 10:40 AM V1-PT DECLINES TOBACCO CESSATION MEDS [place] [facility] [place] [facility] Mar 12, 2008 10:40 AM V1-PT NOT INTERESTED IN QUIT TOBACCO USE [place] [facility] [place] [facility] Mar 08, 2008 09:37 AM CURRENT SMOKER smokes one pack a day for about 10 years ago. [facility] Encounter Notes: All associated encounter [...] Location was confirmed. 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
--- OUTSIDE RECORDS SUMMARY | 2024-07-25 11:29 | XMS_ITS | Encounter Summary ---
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 Address [address] [place] [id number] Care Team Providers Care Licensing Engineer Name Role Phone ROMANA CASTILLO Primary [...] Garcia's Name Patient's Relationship to Policy Garcia [facility] (MEDICAID) [facility] May 14, 2009 [id number] SAMPLE,ROCCO MOORE PATIENT [facility] MEDICAID [facility] May 14, 2009 [id number] SAMPLE,ROCCO MOORE PATIENT MEDICAID MEDICAID [facility] [place] Jul 26, 2018 MEDICAI D [id number] SAMPLE,ROCCO MOORE PATIENT MEDICARE (WNR) MEDICARE (M) PART A November 24, 2015 PART A [id number] SAMPLE,ROCCO MOORE PATIENT MEDICARE (WNR) MEDICARE (M) PART B November 24, 2015 PART B [id number] [phone] ROCCO QUEZADA PATIENT Selected Encounter This [...] activities for the patient from all [place] [facility]. This section includes future appointments and [...] AMBULATORY - [place]RY [place] [facility] [place] [facility] Aug 18, 2023 12:00 PM AMBULATORY - [place]ICINE [place] [facility] [place] [facility] Sep 08, 2023 01:00 PM AM[place]ULATORY [place] [facility] [place] [facility] Sep 08, 2023 01:30 PM AM[place]ULATORY [place]ICINE [place] [facility] [place] [facility] Oct 06, 2023 09:00 AM AM[place]ULATORY [place]IC[place] [facility] [place] [facility] Oct 07, 2023 01:00 PM AMBULATORY [place]ATRY [place] [facility] [place] [facility] Oct 25, 2023 11:00 AM AM[place]ULATORY [place]ICINE [place] [facility] [place] [facility] Nov 09, 2023 09:00 AM AM[place]ULATORY [place]ICINE [place] [facility] [place] [facility] Nov 17, 2023 09:30 AM AM[place]ULATORY [place]ICINE [place] [facility] [place] [facility] Jan 03, 2024 11:00 AM AMBULATORY [place]RY [place] [facility] [place] [facility] Jan 17, 2024 03:00 PM AM[place]ULATORY [place]ICINE [place] [facility] [place] [facility] Jan 26, 2024 09:30 AM [place] [facility] [place] [facility] Social History: Smoking Status (Most [...] 31, 2023 11:00 AM VA-TOBACCO [facility] Tobacco Use History This section includes a history of the smoking, or tobacco-related health factors, that were collected on or before the date of the Encounter. The data comes from the [place] facility where the Encounter took place. Date/Time Smoking Status/Tobac co Use Comment Facility Mar 31, 2023 11:00 AM VA-TOBACCO QUIT 1 TO < 5 YRS [place] [facility] [place] [facility] Mar 25, 2022 10:30 AM VA-TOBACCO NEVER USED [place] [facility] [place] [facility] Mar 19, 2021 02:00 PM VA-TOBACCO FORMER USER [place] [facility] [place] [facility] Mar 19, 2021 02:00 PM VA-TOBACCO QUIT < [facility] [place] [facility] Sep 20, 2018 11:24 AM VA-TOBACCO USE DECLINED TO ANSWER [facility] [place] [facility] Oct 21, 2017 08:13 AM QUIT TOBACCO USE IN PAST YEAR [place] [facility] [place] [facility] Dec 30, 2016 08:28 AM QUIT TOBACCO USE 1-7 YEARS AGO [place] [facility] [place] [facility] Jun 04, 2016 08:43 AM QUIT TOBACCO USE 1-7 YEARS AGO [place] [facility] [place] [facility] May 17, 2015 08:45 AM QUIT TOBACCO USE 1-7 YEARS AGO quit 2 years ago. [place] [facility] [place] [facility] Jun 07, 2014 09:25 AM QUIT TOBACCO USE 1-7 YEARS AGO [place] [facility] [place] [facility] November 30, 2013 08:44 AM QUIT TOBACCO USE IN PAST YEAR [place] [facility] [place] [facility] May 22, 2013 10:10 AM QUIT TOBACCO USE IN PAST YEAR [place] [facility] [place] [facility] December 01, 2012 01:54 PM QUIT TOBACCO USE IN PAST YEAR [facility] [place] [facility] Jun 07, 2012 08:16 AM V1-PT DECLINES TOBACCO CESSATION MEDS [place] [facility] [place] [facility] Jun 07, 2012 08:16 AM V1-PT THINKING ABOUT QUIT TOBACCO USE [place] [facility] [place] [facility] Jan 05, 2012 09:00 AM CURRENT SMOKER intermittenly [place] [facility] [place] [facility] Jan 05, 2012 09:00 AM V1-PT DECLINES REF TO TOBACCO CESS [facility] [place] [facility] Jan 05, 2012 09:00 AM V1-PT DECLINES TOBACCO CESSATION MEDS [place] [facility] [place] [facility] Jan 05, 2012 09:00 AM V1-PT THINKING ABOUT QUIT TOBACCO USE [facility] [place] [facility] Feb 17, 2011 09:52 AM V1-PT DECLINES TOBACCO CESSATION MEDS [facility] [place] [facility] Feb 17, 2011 09:52 AM V1-PT THINKING ABOUT QUIT [facility]ACCO [facility] [place] [facility] Aug 13, 2010 11:31 AM QUIT TOBACCO USE IN PAST YEAR [facility] [place] [facility] Feb 19, 2010 01:26 PM QUIT TOBACCO USE IN PAST YEAR [place] [facility] [place] [facility] Sep 13, 2009 11:04 AM QUIT TOBACCO USE IN PAST YEAR [facility] [place] [facility] Feb 05, 2009 08:29 AM V1-PT DECLINES REF TO TOBACCO CESS [facility] Feb 05, 2009 08:29 AM V1-PT DECLINES TOBACCO CESSATION MEDS [facility] [place] [facility] Feb 05, 2009 08:29 AM V1-PT THINKING ABOUT QUIT TOBACCO USE [place] [facility] [place] [facility] Aug 22, 2008 09:04 AM QUIT TOBACCO USE IN PAST YEAR [facility] [place] [facility] Mar 12, 2008 10:40 AM V1-PT DECLINES REF TO TOBACCO CESS PRGM [place] [facility] [place] [facility] Mar 12, 2008 10:40 AM V1-PT DECLINES TOBACCO CESSATION MEDS [place] [facility] [place] [facility] Mar 12, 2008 10:40 AM V1-PT NOT INTERESTED IN QUIT TOBACCO USE [facility] [place] [facility] Mar 08, 2008 09:37 AM [...] 08/04 PCP cc. /divya/ ROSA WOLFE [employer] Signed: 08/03/2023 12:12 ROSA WOLFE [facility]
--- OUTSIDE RECORDS SUMMARY | 2024-07-25 11:29 | XMS_ITS | Encounter Summary ---
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 Address [address] [place] [id number] Care Team Providers Care Dispatcher Bus And Trolley Name Role Phone ROMANA CASTILLO Primary Care [...] Garcia's Name Patient's Relationship to Policy Garcia [facility] (MEDICAID) [facility] May 14, 2009 [id number] SAMPLE,ROCCO MOORE PATIENT [facility] MEDICAID [facility] May 14, 2009 [id number] SAMPLE,ROCCO MOORE PATIENT MEDICAID MEDICAID [facility] [place] Jul 26, 2018 MEDICAI D [id number] SAMPLE,ROCCO MOORE PATIENT MEDICARE (WNR) MEDICARE (M) PART A November 24, 2015 PART A [id number] SAMPLE,ROCCO MOORE PATIENT MEDICARE (WNR) MEDICARE (M) PART B November 24, 2015 PART B [id number] ROCCO QUEZADA PATIENT Selected Encounter This section includes the information on record at [place] for the Encounter. Date/Time Encounter Type Encounter Description Reason Pro vider Source Aug 18, 2023 11:00 AM Outpatient Encounter PAIN CLINIC [facility] Encounter [...] - MEDICINE [place] [facility] [place] [facility] Sep 08, 2023 01:30 PM AMBULATORY [place]IC[place] [facility] [place] [facility] Oct 06, 2023 09:00 AM AM[place]ULATORY - [place]ICINE [place] [facility] [facility] Oct 07, 2023 01:00 PM AMBULATORY - PS[place]CHIATRY [place] [facility] [place] [facility] Oct 25, 2023 11:00 AM AMBULATORY - [place]ICINE [place] [facility] [place] [facility] Nov 09, 2023 09:00 AM AM[place]ULATORY - [place]ICINE [place] [facility] [facility] Nov 17, 2023 09:30 AM AMBULATORY - [place]ICINE [place] [facility] [facility] Jan 03, 2024 11:00 AM AMBULATORY - PS[place]CHIATRY [place] [facility] [place] [facility] Jan 17, 2024 03:00 PM AMBULATORY - MEDICINE [place] [facility] [facility] Jan 26, 2024 09:30 AM AM[place]ULATORY - [place]ICINE [place] [facility] [facility] Feb 03, 2024 03:00 PM AMBULATORY - [place]ICINE [place] [facility] [place] [facility] Feb 14, 2024 11:00 AM AMBULATORY - [place]CHIATRY [place] [facility] [place] [facility] Social History: Smoking Status (Most current) and [...] AM VA-TOBACCO FORMER USER [place] [facility] [place] [facility] Tobacco Use History This section includes a history of the smoking, or tobacco-related health factors, that were collected on or before the date of the Encounter. The data comes from the [place] facility where the Encounter took place. Date/Time Smoking Status/Tobac co Use Comment Facility Mar 31, 2023 11:00 AM VA-TOBACCO QUIT 1 TO < 5 YRS [place] [facility] [place] [facility] Mar 25, 2022 10:30 AM VA-TOBACCO NEVER USED [place] [facility] [place] [facility] Mar 19, 2021 02:00 PM VA-TOBACCO FORMER USER [place] [facility] [place] [facility] Mar 19, 2021 02:00 PM VA-TOBACCO QUIT < 1 YEAR [place] [facility] [place] [facility] Sep 20, 2018 11:24 AM VA-TOBACCO USE DECLINED TO ANSWER [place] [facility] [place] [facility] Oct 21, 2017 08:13 AM QUIT TOBACCO USE IN PAST YEAR [place] [facility] [place] [facility] Dec 30, 2016 08:28 AM QUIT TOBACCO USE 1-7 YEARS AGO [place] [facility] [place] [facility] Jun 04, 2016 08:43 AM QUIT TOBACCO USE 1-7 YEARS AGO [place] [facility] [place] [facility] May 17, 2015 08:45 AM QUIT TOBACCO USE 1-7 YEARS AGO quit 2 years ago. [place] [facility] [place] [facility] Jun 07, 2014 09:25 AM QUIT TOBACCO USE 1-7 YEARS AGO [place] [facility] [place] [facility] November 30, 2013 08:44 AM QUIT TOBACCO USE IN PAST YEAR [place] [facility] [place] [facility] May 22, 2013 10:10 AM QUIT TOBACCO USE IN PAST YEAR [place] [facility] [facility] December 01, 2012 01:54 PM QUIT TOBACCO USE IN PAST YEAR [place] [facility] [place] [facility] Jun 07, 2012 08:16 AM V1-PT DECLINES TOBACCO CESSATION MEDS [place] [facility] [place] [facility] Jun 07, 2012 08:16 AM V1-PT THINKING ABOUT QUIT TOBACCO USE [place] [facility] [place] [facility] Jan 05, 2012 09:00 AM CURRENT SMOKER intermittenly [place] [facility] [place] [facility] Jan 05, 2012 09:00 AM V1-PT DECLINES REF TO TOBACCO CESS [facility] [place] [facility] Jan 05, 2012 09:00 AM V1-PT DECLINES [facility]AC[facility] [place] [facility] Jan 05, 2012 09:00 AM V1-PT THINKING ABOUT QUIT TOBACCO USE [place] [facility] [facility] Feb 17, 2011 09:52 AM V1-PT DECLINES TOBACCO CESSATION MEDS [facility] [place] [facility] Feb 17, 2011 09:52 AM V1-PT THINKING ABOUT QUIT TOBACCO USE [facility] [place] [facility] Aug 13, 2010 11:31 AM QUIT TOBACCO USE IN PAST YEAR [facility] [place] [facility] Feb 19, 2010 01:26 PM QUIT TOBACCO USE IN PAST YEAR [facility] [place] [facility] Sep 13, 2009 11:04 AM QUIT TOBACCO USE IN PAST [facility]AR [facility] [place] [facility] Feb 05, 2009 08:29 AM V1-PT DECLINES REF TO TOBACCO CESS [facility] [place] [facility] Feb 05, 2009 08:29 AM V1-PT DECLINES TOBACCO CESSATION MEDS [facility] [place] [facility] Feb 05, 2009 08:29 AM V1-PT THINKING ABOUT QUIT TOBACCO USE [facility] [place] [facility] Aug 22, 2008 09:04 AM QUIT TOBACCO USE IN PAST YEAR [place] [facility] [place] [facility] Mar 12, 2008 10:40 AM V1-PT DECLINES REF TO TOBACCO CESS PRGM [place] [facility] [facility] Mar 12, 2008 10:40 AM V1-PT DECLINES TOBACCO CESSATION MEDS [place] [facility] [place] [facility] Mar 12, 2008 10:40 AM V1-PT NOT INTERESTED IN QUIT TOBACCO USE [facility] [place] [facility] Mar 08, 2008 09:37 AM CURRENT SMOKER smokes one pack a day for about 10 years ago. [facility] Encounter Notes: All associated encounter notes This section contains the clinical notes associated to the Encounter. Date/Time Encounter Note(s) Provider Source Jul 27, 2023 02:15 PM ACCOUNTING OF DISC LOSURES NOTE: LOCAL TITLE: STATE PRESCRIPTION DRUG MONITORING PROGRAM STANDARD TITLE: ACCOUNTING OF DISCLOSURES NOTE DATE OF NOTE: JUL 27, 2023@14:15:42 ENTRY DATE: JUL 27, 2023@14:15:42 AUTHOR: GAL MADSEN EXP COSIGNER: URGENCY: STATUS: COMPLETED This PDMP query was submitted by Gal Madsen MD. The clinical justification for this PDMP query is to review controlled substances prescribed outside of the [place], and any additional information that may become available, as an important component of standard clinical care, and in accordance with [facility] policy. Patient information was shared with the PDMP Appriss [place]. No prescription(s) for controlled substances outside the [facility] were found in the last 90 days. /divya/ Gal Madsen MD STAFF PHYSICIAN Signed: 07/27/2023 14:20 GAL MADSEN [facility]
--- OUTSIDE RECORDS SUMMARY | 2024-07-25 11:29 | XMS_ITS ---
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 Organization [place] Address [address] [place] [address] Care Team Providers Care Sales Floor Team Member Name Role Phone ROMANA CASTILLO Primary Care [...] Patient's Relationship to Policy Garcia [facility] (MEDICAID) MEDICAID [place] DE[place] [facility] May 14, 2009 [id number] SAMPLE,ROCCO MOORE PATIENT [facility] May 14, 2009 [id number] SAMPLE,ROCCO MOORE PATIENT MEDICAID MEDICAID [facility] [place] Jul 26, 2018 MEDICAI D [id number] SAMPLE,ROCCO MOORE PATIENT MEDICARE (WNR) MEDICARE (M) PART A November 24, 2015 PART A [id number] SAMPLE,ROCCO MOORE PATIENT MEDICARE (WNR) MEDICARE (M) PART B November 24, 2015 PART B [id number] SAMPLE,ROCCO MOORE PATIENT Selected Encounter This [...] 05, 2023 04:00 PM AMBULATORY - [place]CHIATRY [place] [facility] [place] [facility] Aug 18, 2023 12:00 PM AMBULATORY - MEDICINE [place] [facility] [facility] Sep 08, 2023 01:00 PM AMBULATORY - [place]ICINE [place] [facility] [facility] Sep 08, 2023 01:30 PM AMBULATORY - [place]ICINE [place] [facility] [facility] Oct 06, 2023 09:00 AM AMBULATORY - MEDICINE [place] [facility] [facility] Oct 07, 2023 01:00 PM AMBULATORY - PSYCHIATRY [place] [facility] [place] [facility] Oct 25, 2023 11:00 AM AMBULATORY - MEDICINE [place] [facility] [facility] Nov 09, 2023 09:00 AM AMBULATORY - MEDICINE [place] [facility] [facility] Nov 17, 2023 09:30 AM AMBULATORY - MEDICINE [place] [facility] [facility] Jan 03, 2024 11:00 AM AMBULATORY - PSYCHIATRY [place] [facility] [place] [facility] Jan 17, 2024 03:00 PM AMBULATORY - MEDICINE [place] [facility] [facility] Jan 26, 2024 09:30 AM AMBUL[place]ORY - [place]ICINE [place] [facility] [facility] Social History: Smoking Status (Most current) and [...] VA-TOBACCO [facility] Tobacco Use History This section includes a history of the smoking, or tobacco-related health factors, that were collected on or before the date of the Encounter. The data comes from the [place] facility where the Encounter took place. Date/Time Smoking Status/Tobac co Use Comment Facility Mar 31, 2023 11:00 AM VA-TOBACCO QUIT 1 TO < 5 [facility] [place] [facility] Mar 25, 2022 10:30 AM VA-TOBACCO NEVER USED [place] [facility] [facility] Mar 19, 2021 02:00 PM VA-TOBACCO FORMER USER [facility] Mar 19, 2021 02:00 PM VA-TOBACCO QUIT < 1 YEAR [facility] [place] [facility] Sep 20, 2018 11:24 AM VA-TOBACCO USE DECLINED TO ANSWER [facility] [place] [facility] Oct 21, 2017 08:13 AM QUIT TOBACCO USE IN PAST YEAR [facility] [place] [facility] Dec 30, 2016 08:28 AM QUIT TOBACCO USE 1-7 YEARS AGO [place] [facility] [place] [facility] Jun 04, 2016 08:43 AM QUIT TOBACCO USE 1-7 YEARS AGO [facility] [place] [facility] May 17, 2015 08:45 AM QUIT TOBACCO USE 1-7 YEARS AGO quit 2 years ago. [place] [facility] [place] [facility] Jun 07, 2014 09:25 AM QUIT TOBACCO USE 1-7 YEARS AGO [facility] [place] [facility] November 30, 2013 08:44 AM QUIT TOBACCO USE IN PAST YEAR [facility] [place] [facility] May 22, 2013 10:10 AM QUIT TOBACCO USE IN PAST YEAR [facility] [place] [facility] December 01, 2012 01:54 PM QUIT TOBACCO USE IN PAST YEAR [facility] [place] [facility] Jun 07, 2012 08:16 AM V1-PT DECLINES TOBACCO CESSATION MEDS [place] [facility] [place] [facility] Jun 07, 2012 08:16 AM V1-PT THINKING ABOUT QUIT TOBACCO USE [place] [facility] [place] [facility] Jan 05, 2012 09:00 AM CURRENT SMOKER intermittenly [place] [facility] [place] [facility] Jan 05, 2012 09:00 AM V1-PT DECLINES REF TO TOBACCO CESS PRGM [facility] [place] [facility] Jan 05, 2012 09:00 AM V1-PT DECLINES TOBACCO CESSATION MEDS [place] [facility] [place] [facility] Jan 05, 2012 09:00 AM V1-PT THINKING ABOUT QUIT TOBACCO USE [place] [facility] [place] [facility] Feb 17, 2011 09:52 AM V1-PT DECLINES TOBACCO CESSATION MEDS [place] [facility] [place] [facility] Feb 17, 2011 09:52 AM V1-PT THINKING ABOUT QUIT [facility] [place] [facility] Aug 13, 2010 11:31 AM QUIT TOBACCO USE IN PAST YEAR [place] [facility] [place] [facility] Feb 19, 2010 01:26 PM QUIT TOBACCO USE IN PAST YEAR [place] [facility] [place] [facility] Sep 13, 2009 11:04 AM QUIT TOBACCO USE IN PAST YEAR [place] [facility] [place] [facility] Feb 05, 2009 08:29 AM V1-PT DECLINES REF [facility] TOBACCO CESS [facility] [place] [facility] Feb 05, 2009 08:29 AM V1-PT DECLINES TOBACCO CESSATION MEDS [place] [facility] [place] [facility] Feb 05, 2009 08:29 AM V1-PT THINKING ABOUT QUIT TOBACCO USE [place] [facility] [place] [facility] Aug 22, 2008 09:04 AM QUIT TOBACCO USE IN PAST YEAR [place] [facility] [place] [facility] Mar 12, 2008 10:40 AM V1-PT DECLINES REF TO TOBACCO CESS PRGM [place] [facility] [place] [facility] Mar 12, 2008 10:40 AM V1-PT DECLINES TOBACCO CESSATION MEDS [facility] [place] [facility] Mar 12, 2008 10:40 AM V1-PT NOT INTERESTED IN QUIT TOBACCO USE [place] [facility] [place] [facility] Mar 08, 2008 09:37 AM CURRENT SMOKER smokes one pack a day for about 10 years ago. [facility] Encounter Notes: All associated encounter notes This [...] COMPLETED Type of Telephone Encounter: This telehealth compounding technician called today Problem/Issue Reported: [place] is a nonresponder on the [employer] program Intervention: Called to assist with setting up Cmdr Flex hub with new replacement equipment/cord/scale etc. [place] states she has not received any of the replacement equipment. Verified in [place] that equipment was received as well as a retrieval kit for faulty equipment being replaced. [place] requests to call back when she locates the equipment/determines if it has arrived. Follow-up: Will notify shift coordinator who will monitor for [employer] responses. Length of call: 2 min /divya/ SANTOSH VELEZ Signed: 07/28/2023 13:38 SANTOSH VELEZ [facility]
--- OUTSIDE RECORDS SUMMARY | 2024-07-25 11:29 | XMS_ITS | Encounter Summary ---
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 (ID) Organization Department of Vetera Affairs (ID) Address [address] [place] [id number] Care Team Providers Care Production Welder Name Role Phone ROMANA CASTILLO Primary Care [...] Garcia's Name Patient's Relationship to Policy Garcia [facility] (MEDICAID) [facility] May 14, 2009 [id number] SAMPLE,ROCCO MOORE PATIENT [facility] MEDICAID [facility] May 14, 2009 [id number] SAMPLE,ROCCO MOORE PATIENT MEDICAID MEDICAID [facility] Jul 26, 2018 MEDICAI D [id number] SAMPLE,ROCCO MOORE PATIENT MEDICARE (WNR) MEDICARE (M) PART A November 24, 2015 PART A [id number] [phone] SAMPLE,ROCCO MOORE PATIENT MEDICARE (WNR) MEDICARE (M) PART B November 24, 2015 PART B [id number] ROCCO QUEZADA PATIENT Selected Encounter This [...] 05, 2023 04:00 PM AMBULATORY - PSYCHIATRY [facility] [place] [facility] Aug 18, 2023 12:00 PM AMBULATORY - MEDICINE ID C [facility]TRL [facility] [place] [facility] Sep 08, 2023 01:00 PM AMBULATORY - MEDICINE ID C [facility] [place] [facility] Sep 08, 2023 01:30 PM AMBULATORY - MEDICINE ID C [facility] [place] [facility] Oct 06, 2023 09:00 AM AMBULATORY - MEDICINE ID C [facility] [place] [facility] Oct 07, 2023 01:00 PM AMBULATORY - PSYCHIATRY ID [facility] [place] [facility] Oct 25, 2023 11:00 AM AMBULATORY - MEDICINE ID C N[facility] [place] [facility] Nov 09, 2023 09:00 AM AMBULATORY - MEDICINE ID C [facility] [place] [facility] Nov 17, 2023 09:30 AM AMBULATORY - MEDICINE ID C [facility] [place] [facility] Jan 03, 2024 11:00 AM AMBULATORY - PSYCHIATRY ID [facility] [place] [facility] Jan 17, 2024 03:00 PM AMBULATORY - MEDICINE ID C [facility] [place] [facility] [...] 31, 2023 11:00 AM VA-TOBACCO FOR[facility]ER [facility] [place] [facility] Tobacco Use History This section includes a history of the smoking, or tobacco-related health factors, that were collected on or before the date of the Encounter. The data comes from the ID facility where the Encounter took place. Date/Time Smoking Status/Tobac co Use Comment Facility Mar 31, 2023 11:00 AM VA-TOBACCO QUIT 1 TO < 5 YRS ID [facility]TR [facility] [place] [facility] Mar 25, 2022 10:30 AM VA-TOBACCO NEVER USED ID CNTR [facility] [place] [facility] Mar 19, 2021 02:00 PM VA-TOBACCO FORMER USER ID [facility]TR [facility] [place] [facility] Mar 19, 2021 02:00 PM VA-TOBACCO QUIT < 1 YEAR [facility] [place] [facility] Sep 20, 2018 11:24 AM VA-TOBACCO USE [facility] [place] [facility] Oct 21, 2017 08:13 AM QUIT TOBACCO USE IN PAST YEAR ID [facility]TR [facility] [place] [facility] Dec 30, 2016 08:28 AM QUIT TOBACCO USE 1-7 YEARS AGO ID [facility]TR [facility] [place] [facility] Jun 04, 2016 08:43 AM QUIT TOBACCO USE 1-7 YEARS AGO ID [facility] [place] [facility] May 17, 2015 08:45 AM QUIT TOBACCO USE 1-7 YEARS AGO quit 2 years ago. [facility] [place] [facility] Jun 07, 2014 09:25 AM QUIT TOBACCO USE 1-7 YEARS AGO [facility] [place] [facility] November 30, 2013 08:44 AM QUIT TOBACCO USE IN PAST YEAR ID [facility] [place] [facility] May 22, 2013 10:10 AM QUIT TOBACCO USE IN PAST YEAR ID [facility] [place] [facility] December 01, 2012 01:54 PM QUIT TOBACCO USE IN PAST YEAR ID [facility] [place] [facility] Jun 07, 2012 08:16 AM V1-PT DECLINES TOBACCO CESSATION MEDS [facility] [place] [facility] Jun 07, 2012 08:16 AM V1-PT THINKING ABOUT QUIT TOBACCO USE ID [facility] [place] [facility] Jan 05, 2012 09:00 AM CURRENT SMOKER intermittenly [facility] [place] [facility] Jan 05, 2012 09:00 AM V1-PT DECLINES REF TO TOBACCO CESS PRGM ID [facility]TR [facility] [place] [facility] Jan 05, 2012 09:00 AM V1-PT DECLINES TOBACCO CESSATION MEDS [facility] [place] [facility] Jan 05, 2012 09:00 AM V1-PT THINKING ABOUT QUIT TOBACCO USE ID [facility]TR [facility] [place] [facility] Feb 17, 2011 09:52 AM V1-PT DECLINES [facility]ACCO [facility] [place] [facility] Feb 17, 2011 09:52 AM V1-PT THINKING ABOUT QUIT TOBACCO USE ID [facility]TR [facility] [place] [facility] Aug 13, 2010 11:31 AM QUIT TOBACCO USE IN PAST YEAR [facility] [place] [facility] Feb 19, 2010 01:26 PM QUIT TOBACCO USE IN PAST YEAR [facility] [place] [facility] Sep 13, 2009 11:04 AM QUIT TOBACCO USE IN PAST YEAR [facility] [place] [facility] Feb 05, 2009 08:29 AM V1-PT DECLINES REF TO TOBACCO CESS PRGM [facility] [place] [facility] Feb 05, 2009 08:29 AM V1-PT DECLINES TOBACCO CESSATION MEDS [facility] [place] [facility] Feb 05, 2009 08:29 AM V1-PT THINKING ABOUT QUIT TOBACCO USE [facility] [place] [facility] Aug 22, 2008 09:04 AM QUIT TOBACCO USE IN PAST YEAR [facility] [place] [facility] Mar 12, 2008 10:40 AM V1-PT DECLINES REF TO TOBACCO CESS PRGM ID [facility]TR [facility] [place] [facility] Mar 12, 2008 10:40 AM V1-PT DECLINES TOBACCO CESSATION MEDS ID CNTR [facility] [place] [facility] Mar 12, 2008 10:40 AM V1-PT NOT INTERESTED IN QUIT TOBACCO USE [facility] [place] [facility] Mar 08, 2008 09:37 AM CURRENT SMOKER smokes one pack a day for about 10 years ago. [facility] [place] [facility] Encounter Notes: All associated [...] Vet states she has to come to ID and will be stopping in to talk with Dr. 

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
--- OUTSIDE RECORDS SUMMARY | 2024-07-25 11:29 | XMS_ITS | Encounter Summary ---
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 (MD) Organization Department of Vetera Affairs (MD) Address [address] [place] [id number] Care Team Providers Care Hydrology Teacher Name Role Phone ROMANA CASTILLO Primary [...] Garcia's Name Patient's Relationship to Policy Garcia [facility] (MEDICAID) MEDICAID [facility] HUMAN [facility] May 14, 2009 [id number] SAMPLE,ROCCO MOORE PATIENT [facility] MEDICAID [facility] May 14, 2009 [id number] SAMPLE,ROCCO MOORE PATIENT MEDICAID MEDICAID [facility] [place] Jul 26, 2018 MEDICAI D [id number] SAMPLE,ROCCO MOORE PATIENT MEDICARE (WNR) MEDICARE (M) PART A November 24, 2015 PART A [id number] SAMPLE,ROCCO MOORE PATIENT MEDICARE (WNR) MEDICARE (M) PART B November 24, 2015 PART B [id number] SAMPLE,ROCCO MOORE PATIENT Selected Encounter This section includes the information on record at VA for the Encounter. Date/Time Encounter Type Encounter Description Reason Pro vider Source IHE Encounter Template Text not used by VA
--- OUTSIDE RECORDS SUMMARY | 2024-07-25 11:29 | XMS_ITS ---
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 Address [address] [place] [address] Care Team Providers Care Postal Clerk Name Role Phone ROMANA CASTILLO Primary [...] Garcia's Name Patient's Relationship to Policy Garcia [facility] (MEDICAID) MEDICAID [place] [facility] May 14, 2009 [id number] SAMPLE,ROCCO MOORE PATIENT [facility] May 14, 2009 [id number] SAMPLE,ROCCO MOORE PATIENT MEDICAID MEDICAID [facility] Jul 26, 2018 MEDICAI D [id number] SAMPLE,ROCCO MOORE PATIENT MEDICARE (WNR) MEDICARE (M) PART A November 24, 2015 PART A [id number] SAMPLE,ROCCO MOORE PATIENT MEDICARE (WNR) MEDICARE (M) PART B November 24, 2015 PART B [id number] SAMPLE,ROCCO MOORE PATIENT Selected Encounter This [...] 18, 2023 12:00 PM AMBULATORY - MEDICINE [place] [facility] Sep 08, 2023 01:00 PM AMBULATORY - MEDICINE [place] [facility] Sep 08, 2023 01:30 PM AMBULATORY - MEDICINE [place] [facility] Oct 06, 2023 09:00 AM AMBULATORY - MEDICINE [place] [facility] Oct 07, 2023 01:00 PM AMBULATORY - PSYCHIATRY [place] [facility] [place] [facility] Oct 25, 2023 11:00 AM AMBULATORY - MEDICINE [place] C [place] [facility] Nov 09, 2023 09:00 AM AMBULATORY - MEDICINE [place] [facility] Nov 17, 2023 09:30 AM AMBULATORY - MEDICINE [place] [facility] Jan 03, 2024 11:00 AM AMBULATORY - PSYCHIATRY [place] [facility] [place] [facility] Jan 17, 2024 03:00 PM AMBULATORY - MEDICINE [place] C [place] [facility] Jan 26, 2024 09:30 AM AMBULATORY - MEDICINE [place] [facility] Feb 03, 2024 03:00 PM AMBULATORY - MEDICINE [place] [place] [facility] [...] VA-TOBACCO [facility] Tobacco Use History This section includes a history of the smoking, or tobacco-related health factors, that were collected on or before the date of the Encounter. The data comes from the [place] facility where the Encounter took place. Date/Time Smoking Status/Tobac co Use Comment Facility Mar 31, 2023 11:00 AM VA-TOBACCO QUIT 1 TO < 5 Y[facility] [place] [facility] Mar 25, 2022 10:30 AM VA-TOBACCO NEVER USED [place] CNTR [facility] [facility] Mar 19, 2021 02:00 PM VA-TOBACCO FORMER USER [facility] Mar 19, 2021 02:00 PM VA-TOBACCO QUIT < 1 YEAR [facility] [place] [facility] Sep 20, 2018 11:24 AM VA-TOBACCO USE DECLINED TO ANSWER [facility] [facility] Oct 21, 2017 08:13 AM QUIT TOBACCO USE IN PAST YEAR [facility] [facility] Dec 30, 2016 08:28 AM QUIT TOBACCO USE 1-7 YEARS AGO [place] CNTR [place] [facility] Jun 04, 2016 08:43 AM QUIT TOBACCO USE 1-7 YEARS AGO [facility] [facility] May 17, 2015 08:45 AM QUIT TOBACCO USE 1-7 YEARS AGO quit 2 years ago. [place] [facility] [facility] Jun 07, 2014 09:25 AM QUIT TOBACCO USE 1-7 YEARS AGO [facility] [place] [facility] November 30, 2013 08:44 AM QUIT TOBACCO USE IN PAST YEAR [facility] [facility] May 22, 2013 10:10 AM QUIT TOBACCO USE IN PAST YEAR [facility] [facility] December 01, 2012 01:54 PM QUIT TOBACCO USE IN PAST YEAR [facility] [place] [facility] Jun [...] TOBACCO CESS PRGM [facility] [place] [facility] [...] THINKING ABOUT QUIT [facility]BAC[facility] [place] [facility] Aug 13, 2010 11:31 AM QUIT TOBACCO USE IN PAST YEAR [facility] [place] [facility] Feb 19, 2010 01:26 PM QUIT TOBACCO USE IN PAST YEAR [place] [facility] [place] [facility] Sep 13, 2009 11:04 AM QUIT TOBACCO USE IN PAST YEAR [place] [facility]TR [place] [facility] Feb [...] IN PAST YEAR [place] CNTR [place] [facility] Mar 12, 2008 10:40 AM V1-PT DECLINES REF TO TOBACCO CESS PRGM [facility] [place] [facility] Mar 12, 2008 10:40 AM V1-PT DECLINES TOBACCO CESSATION MEDS [facility] [place] [facility] Mar 12, 2008 10:40 AM V1-PT NOT INTERESTED IN QUIT TOBACCO USE [place] [facility] [place] [facility] Mar 08, 2008 09:37 AM CURRENT SMOKER smokes one pack a day for about 10 years ago. [place] [facility] Encounter Notes: All associated encounter [...] CUSTOMER CARE MEDICATION RENEWAL: Date: Jul Division: [facility] referred by Pharmacy Call Center for medication renewal: Non-controlled/maintenan ce medication Medications requested: Rx #: [id number] DILTIAZEM (EQV-TIAZAC) 180MG 24HR CAP Defer to specialty clinic To be mailed . Please review and renew if appropriate. *This note was generated by [facility]/[place] Pharmacy Customer Care. If you have any questions or need assistance, do not contact this author. Please refer all questions to your local, on-site pharmacy departments. /divya/ VICTORINO CHENEY CPhT [employer], [place]/ Pharmacy Customer Care Signed: 08/11/2023 20:49 Receipt Acknowledged By: 08/12/2023 08:55 /divya/ Gal Madsen MD STAFF PHYSICIAN 08/12/2023 09:09 /divya/ OLGA GREEN, MSN, RN, CNL PRIMARY CARE TEAM NURSE GAL MADSEN [facility] Aug 11, 2023 08:45 PM PHARMACY NOTE: LOCAL TITLE: V1 PHARMACY CUSTOMER CARE MEDICATION RENEWAL STANDARD TITLE: PHARMACY NOTE DATE OF NOTE: AUG 11, 2023@20:45 ENTRY DATE: AUG 11, 2023@20:45:40 AUTHOR: VICTORINO CHENEY EXP COSIGNER: URGENCY: STATUS: COMPLETED V1 PHARMACY CUSTOMER CARE MEDICATION RENEWAL Has ADDENDA Date: Jul Division: [facility] referred by Pharmacy Call Center for medication renewal: Non-controlled/maintenan ce medication Medications requested: Rx #: [id number] DILTIAZEM (EQV-TIAZAC) 180MG 24HR CAP Defer to specialty clinic To be mailed . Please review and renew if appropriate. *This note was generated by [facility] Pharmacy Customer Care. If you have any questions or need assistance, do not contact this author. Please refer all questions to your local, on-site pharmacy departments. /divya/ VICTORINO CHENEY [facility] [employer] D[employer]ishing Operator[place]/ Pharmacy Customer Care Signed: 08/11/2023 20:49 [...] CNL PRIMARY CARE TEAM NURSE VICTORINO CHENEY [facility]
--- OUTSIDE RECORDS SUMMARY | 2024-07-25 11:29 | XMS_ITS | Encounter Summary ---
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 Address [address] [place] [id number] Care Team Providers Care Tankage Grinder Name [...] Garcia's Name Patient's Relationship to Policy Garcia [facility] (MEDICAID) [facility] May 14, 2009 [id number] SAMPLE,ROCCO MOORE PATIENT [facility] May 14, 2009 [id number] SAMPLE,ROCCO MOORE PATIENT MEDICAID MEDICAID [facility] Jul 26, 2018 MEDICAI D [id number] SAMPLE,ROCCO MOORE PATIENT MEDICARE (WNR) MEDICARE (M) PART A November 24, 2015 PART A [id number] SAMPLE,ROCCO MOORE PATIENT MEDICARE (WNR) MEDICARE (M) PART B November 24, 2015 PART B [id number] ROCCO QUEZADA PATIENT Selected Encounter This [...] - MEDICINE [place] [facility] Sep 08, 2023 01:00 PM AMBULATORY - MEDICINE [place] [facility] Sep 08, 2023 01:30 PM AMBULATORY - MEDICINE [place] [facility] Oct 06, 2023 09:00 AM AMBULATORY - MEDICINE [place] [facility] Oct 07, 2023 01:00 PM AMBULATORY - PSYCHIATRY [place] [facility] Oct 25, 2023 11:00 AM AMBULATORY - MEDICINE [place] [facility] Nov 09, 2023 09:00 AM AMBULATORY - MEDICINE [place] [facility] Nov 17, 2023 09:30 AM AMBULATORY - MEDICINE [place] [facility] Jan 03, 2024 11:00 AM AMBULATORY - PSYCHIATRY [place] [facility] Jan 17, 2024 03:00 PM AMBULATORY - MEDICINE [place] [facility] Jan 26, 2024 09:30 AM AMBULATORY - MEDICINE [place] [facility] Feb 03, 2024 03:00 PM AMBULATORY - MEDICINE [place] [facility] Social History: Smoking Status (Most [...] VA-TOBACCO QUIT 1 TO < 5 YRS [facility] Tobacco Use History This section includes a history of the smoking, or tobacco-related health factors, that were collected on or before the date of the Encounter. The data comes from the [place] facility where the Encounter took place. Date/Time Smoking Status/Tobac co Use Comment Facility Mar 31, 2023 11:00 AM VA-TOBACCO QUIT 1 TO < 5 YRS [place]TR [place] [facility] Mar 25, 2022 10:30 AM VA-TOBACCO NEVER USED [place] [facility] Mar 19, 2021 02:00 PM VA-TOBACCO FOR[facility]ER [place] [facility] Mar 19, 2021 02:00 PM VA-TOBACCO QUIT < 1 YEAR [facility] [place] [facility] Sep 20, 2018 11:24 AM VA-TOBACCO [facility] [place] [facility] Oct 21, 2017 08:13 AM QUIT TOBACCO USE IN PAST [facility]AR [facility] [place] [facility] Dec 30, 2016 08:28 AM QUIT TOBACCO USE 1-7 YEARS AGO [place] [facility]TR [place] [facility] Jun 04, 2016 08:43 AM QUIT TOBACCO USE 1-7 YEARS AGO [place] [facility] [place] [facility] May 17, 2015 08:45 AM QUIT TOBACCO USE 1-7 YEARS AGO quit 2 years ago. [place] [facility] [place] [facility] Jun 07, 2014 09:25 AM QUIT TOBACCO USE 1-7 YEARS AGO [place] [facility]TR [place] [facility] November 30, 2013 08:44 AM QUIT TOBACCO USE IN PAST YEAR [place] [facility] [place] [facility] May 22, 2013 10:10 AM QUIT TOBACCO USE IN PAST YEAR [place] [facility] [place] [facility] December 01, 2012 01:54 PM QUIT TOBACCO USE [facility]ST [facility] [place] [facility] Jun 07, 2012 08:16 AM V1-PT DECLINES TOBACCO CESSATION MEDS [place] [facility] [place] [facility] Jun 07, 2012 08:16 AM V1-PT THINKING ABOUT QUIT TOBACCO USE [place] [facility] [place] [facility] Jan 05, 2012 09:00 AM CURRENT SMOKER intermittenly [place] [facility] [place] [facility] Jan 05, 2012 09:00 AM V1-PT DECLINES REF TO TOBACCO CESS [facility] [place] [facility] Jan 05, 2012 09:00 AM V1-PT DECLINES TOBACCO CESSATION MEDS [facility] [place] [facility] Jan 05, 2012 09:00 AM V1-PT THINKING ABOUT QUIT TOBACCO USE [facility] [place] [place] [facility] Feb 17, 2011 09:52 AM V1-PT DECLINES TOBACCO CESSATION MEDS [facility] [place] [facility] Feb 17, 2011 09:52 AM V1-PT THINKING ABOUT QUIT [facility]BACCO [facility] [place] [facility] Aug 13, 2010 11:31 AM QUIT TOBACCO USE IN PAST YEAR [facility] [place] [facility] Feb 19, 2010 01:26 PM QUIT TOBACCO USE IN PAST YEAR [facility] [place] [facility] Sep 13, 2009 11:04 AM QUIT TOBACCO USE [facility]ST [facility] [place] [facility] Feb 05, 2009 08:29 AM V1-PT DECLINES REF TO TOBACCO CESS [facility] [place] [facility] Feb 05, 2009 08:29 AM V1-PT DECLINES TOBACCO CESSATION MEDS [facility] [place] [facility] Feb 05, 2009 08:29 AM V1-PT THINKING ABOUT QUIT TOBACCO USE [facility] [place] [facility] Aug 22, 2008 09:04 AM QUIT TOBACCO USE IN PAST YEAR [place] [facility] [place] [facility] Mar 12, 2008 10:40 AM V1-PT DECLINES REF TO TOBACCO CESS PRGM [place] [facility] [place] [facility] Mar 12, 2008 10:40 AM V1-PT DECLINES TOBACCO CESSATION MEDS [facility] [place] [facility] Mar 12, 2008 10:40 AM V1-PT NOT INTERESTED IN QUIT TOBACCO USE [facility] [place] [facility] Mar 08, 2008 09:37 AM CURRENT SMOKER smokes one pack a day for about 10 years ago. [facility] Encounter Notes: All associated encounter notes This section contains the clinical notes associated to the Encounter. Date/Time Encounter Note(s) Provider Source Aug 12, 2023 12:22 PM ADDENDUM: LOCAL TITLE: Addendum STANDARD TITLE: ADDENDUM DATE OF NOTE: AUG 12, 2023@12:22:22 ENTRY DATE: AUG 12, 2023@12:22:23 AUTHOR: GEORGE FLORES SA COSIGNER: URGENCY: STATUS: COMPLETED Called and requested a refill of her oxygen tank be delivered to [facility] Hotel in [place]. [place] does not have the room number yet. She stated that someone can just call the hotel and let them know she has a reservation. /divya/ GEORGE VENEGASAH MARK Signed: 08/12/2023 12:27 Receipt Acknowledged By: 08/12/2023 14:39 /divya/ ROSALVA HARMON BA, COLLAR BASTER, RPFT RESPIRATORY THERAPIST ========= --- Original Document --- 08/11/23 TELEPHONE NOTE/SPECIALTY CLINIC: called requesting oxygen to be used while she is away for the weekend. She is asking for a liquid oxygen tank for while she is gone. Phone number on file has been verified. /divya/ JAYRO BELLA PRECISION DYER Signed: 08/11/2023 09:55 Receipt Acknowledged By: * AWAITING SIGNATURE * DEVORAH CROWDER 08/11/2023 16:17 /divya/ СВЕТЛАНА DHILLON RESPIRATORY THERAPIST * AWAITING SIGNATURE * ROHAN CROW 08/11/2023 ADDENDUM STATUS: COMPLETED Called and left message with to call and give travel details. Will add the oxygen coordinator. /divya/ СВЕТЛАНА DHILLON RESPIRATORY THERAPIST Signed: 08/11/2023 16:17 Receipt Acknowledged By: 08/12/2023 14:39 /divya/ ROSALVA HARMON BA, COLLAR BASTER, RPMITCHEL RESPIRATORY THERAPIST GEORGE FLORES [facility] [place] [facility] Aug 11, 2023 04:15 PM ADDENDUM: LOCAL TITLE: Addendum STANDARD TITLE: ADDENDUM DATE OF NOTE: AUG 11, 2023@16:15:31 ENTRY DATE: AUG 11, 2023@16:15:32 AUTHOR: СВЕТЛАНА DHILLON EXP COSIGNER: URGENCY: STATUS: COMPLETED Called and left message with to call and give travel details. Will add the oxygen coordinator. /divya/ СВЕТЛАНА DHILLON RESPIRATORY THERAPIST Signed: 08/11/2023 16:17 Receipt Acknowledged By: 08/12/2023 14:39 /isabella HARMON BA, COLLAR BASTER, RPMITCHEL RESPIRATORY THERAPIST ========= --- Original Document --- 08/11/23 TELEPHONE NOTE/SPECIALTY CLINIC: called requesting oxygen to be used while she is away for the weekend. She is asking for a liquid oxygen tank for while she is gone. Phone number on file has been verified. /divya/ JAYRO BELLA PRECISION DYER Signed: 08/11/2023 09:55 Receipt Acknowledged By: * AWAITING SIGNATURE * DEVORAH CROWDER 08/11/2023 16:17 /divya/ СВЕТЛАНА DHILLON RESPIRATORY THERAPIST * AWAITING SIGNATURE * ROHAN CROW 08/12/2023 ADDENDUM STATUS: COMPLETED [place] Called and requested a refill of her oxygen tank be delivered to [facility] Hot in [place]. [place] does not have the room number yet. She stated that someone can just call the hotel and let them know she has a reservation. /divya/ GEORGE FLORES Signed: 08/12/2023 12:27 Receipt Acknowledged By: 08/12/2023 14:39 /isabella HARMON BA, COLLAR BASTER, RPMITCHEL RESPIRATORY THERAPIST [facility],СВЕТЛАНА P [facility] Aug 11, 2023 09:53 AM TELEPHONE ENCOUNTE R NOTE: LOCAL TITLE: TELEPHONE NOTE/SPECIALTY CLINIC STANDARD TITLE: TELEPHONE ENCOUNTER NOTE DATE OF NOTE: AUG 11, 2023@09:53 ENTRY DATE: AUG 11, 2023@09:53:40 AUTHOR: JAYRO BELLA EXP COSIGNER: URGENCY: STATUS: COMPLETED TELEPHONE NOTE/SPECIALTY CLINIC Has ADDENDA [place] called requesting oxygen to be used while she is away for the weekend. She is asking for a liquid oxygen tank for while she is gone. Phone number on file has been verified. /divya/ JAYRO BELLA PRECISION DYER Signed: 08/11/2023 09:55 Receipt Acknowledged By: 08/16/2023 08:13 /es/ DEVORAH CROWDER,COLLAR BASTER RESPIRATORY THERAPIST 08/11/2023 16:17 /divya/ СВЕТЛАНА DHILLON RESPIRATORY THERAPIST 08/13/2023 11:03 /es/ ROHAN CROW, REFRIGERATOR GLAZIER RESPIRATORY THERAPIST 08/11/2023 ADDENDUM STATUS: COMPLETED Called and left message with to call and give travel details. Will add the oxygen coordinator. /divya/ СВЕТЛАНА DHILLON RESPIRATORY THERAPIST Signed: 08/11/2023 16:17 Receipt Acknowledged By: 08/12/2023 14:39 /divya/ ROSALVA HARMON BA, COLLAR BASTER, RPFT RESPIRATORY THERAPIST 08/12/2023 ADDENDUM STATUS: COMPLETED [place] Called and requested a refill of her oxygen tank be delivered to [facility] in [place]. does not have the room number yet. She stated that someone can just call the hotel and let them know she has a reservation. /es/ GEORGE FLORES Signed: 08/12/2023 12:27 Receipt Acknowledged By: 08/12/2023 14:39 /divya/ ROSALVA HARMON BA, COLLAR BASTER, RPFT RESPIRATORY THERAPIST JAYRO BELLA [facility]
--- OUTSIDE RECORDS SUMMARY | 2024-07-25 11:29 | XMS_ITS | Encounter Summary ---
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 [facility] [place] Address [address] [place] [address] Care Team Providers Care Hot Mill Supervisor Name Role Phone ROMANA CASTILLO Primary [...] Garcia's Name Patient's Relationship to Policy Garcia [facility] (MEDICAID) [facility]ID [facility] May 14, 2009 [id number] SAMPLE,ROCCO MOORE PATIENT [facility] MEDICAID [facility] May 14, 2009 [id number] SAMPLE,ROCCO MOORE PATIENT MEDICAID MEDICAID [facility] Jul 26, 2018 MEDICAI D [id number] SAMPLE,ROCCO MOORE PATIENT MEDICARE (WNR) MEDICARE (M) PART A November 24, 2015 PART A [id number] [id number] SAMPLE,ROCCO MOORE PATIENT MEDICARE (WNR) MEDICARE (M) PART B November 24, 2015 PART B [id number] [id number] SAMPLEROCCO PATIENT Selected Encounter This section includes the information on record at [place] for the Encounter. Date/Time Encounter Type Encounter Description Reason Provider Source Jul 27, 2023 02:20 PM OFFICE O/P EST LOW 20 MIN PAIN CLINIC ICD-10-CM G89.4 Chronic pain syndrome GAL MADSEN [facility] Encounter Template Text not used by [place] Assessments - Encounter Diagnoses This section includes the primary and secondary diagnoses documented for the Encounter. Date/Time Primary/Secondary Diagnosis Diagnosis Name Provider Source Jul 27, 2023 02:28 PM PRIMARY Chronic pain syndrome GAL MADSEN [facility] [place] [facility] Plan of Treatment: Future Appointments (+ [...] AMBULATORY - PSYCHIATRY [facility] [place] [facility] Aug 18, 2023 12:00 PM AMBULATORY - MEDICINE [facility] [place] [facility] Sep 08, 2023 01:00 PM AMBULATORY - MEDICINE [place] [facility] [place] [facility] Sep 08, 2023 01:30 PM AMBULATORY - MEDICINE [place] [facility] [place] [facility] Oct 06, 2023 09:00 AM AMBULATORY - MEDICINE [place] [facility] [place] [facility] Oct 07, 2023 01:00 PM AMBULATORY - PSYCHIATRY [facility] [place] [facility] Oct 25, 2023 11:00 AM AMBULATORY - MEDICINE [place] [facility] [place] [facility] Nov 09, 2023 09:00 AM AMBULATORY - MEDICINE [place] [facility] [place] [facility] Nov 17, 2023 09:30 AM AMBULATORY - MEDICINE [place] [facility] [place] [facility] Jan 03, 2024 11:00 AM AMBULATORY - PSYCHIATRY [facility] [place] [facility] Jan 17, 2024 03:00 PM AMBULATORY - MEDICINE [facility] Social History: Smoking Status (Most current) [...] AM VA-TOBACCO FORMER USER [facility] Tobacco Use History This section includes a history of the smoking, or tobacco-related health factors, that were collected on or before the date of the Encounter. The data comes from the [place] facility where the Encounter took place. Date/Time Smoking Status/Tobac co Use Comment Facility Mar 31, 2023 11:00 AM VA-TOBACCO QUIT 1 TO < 5 YRS [facility] [place] [facility] Mar 25, 2022 10:30 AM VA-TOBACCO NEVER USED [facility] [place] [facility] Mar 19, 2021 02:00 PM VA-TOBACCO FORMER USER [facility] [place] [facility] Mar 19, 2021 02:00 PM VA-TOBACCO QUIT < 1 YEAR [facility] [place] [facility] Sep 20, 2018 11:24 AM VA-TOBACCO USE DECLINED TO ANSWER [facility] [place] [facility] Oct 21, 2017 08:13 AM QUIT TOBACCO USE IN PAST YEAR [facility] [place] [facility] Dec 30, 2016 08:28 AM QUIT TOBACCO USE 1-7 YEARS AGO [facility] [place] [facility] Jun 04, 2016 08:43 AM QUIT TOBACCO USE 1-7 YEARS AGO [facility] [place] [facility] May 17, 2015 08:45 AM QUIT TOBACCO USE 1-7 YEARS AGO quit 2 years ago. [facility] [place] [facility] Jun 07, 2014 09:25 AM QUIT TOBACCO USE 1-7 YEARS AGO [facility] [place] [facility] November 30, 2013 08:44 AM QUIT TOBACCO USE IN PAST YEAR [facility] [place] [facility] May 22, 2013 10:10 AM QUIT TOBACCO USE IN PAST YEAR [facility] [place] [facility] December 01, 2012 01:54 PM QUIT TOBACCO USE IN PAST YEAR [facility] [place] [facility] Jun 07, 2012 08:16 AM V1-PT DECLINES TOBACCO CESSATION MEDS [facility] [place] [facility] Jun 07, 2012 08:16 AM V1-PT THINKING ABOUT QUIT TOBACCO USE [facility] [place] [facility] Jan 05, 2012 09:00 AM CURRENT SMOKER intermittenly [facility] [place] [facility] Jan 05, 2012 09:00 AM V1-PT DECLINES REF TO TOBACCO CESS PRGM [facility] [place] [facility] Jan 05, 2012 09:00 AM V1-PT DECLINES TOBACCO CESSATION MEDS [facility] [place] [facility] Jan 05, 2012 09:00 AM V1-PT THINKING ABOUT QUIT TOBACCO USE [facility] [place] [facility] Feb 17, 2011 09:52 AM V1-PT DECLINES TOBACCO CESSATION MEDS [facility] [place] [facility] Feb 17, 2011 09:52 AM V1-PT THINKING ABOUT QUIT TOBACCO USE [facility] [place] [facility] Aug 13, 2010 11:31 AM QUIT TOBACCO USE IN PAST YEAR [facility] [place] [facility] Feb 19, 2010 01:26 PM QUIT TOBACCO USE IN PAST YEAR [facility] [place] [facility] Sep 13, 2009 11:04 AM QUIT TOBACCO USE IN PAST YEAR [facility] [place] [facility] Feb 05, 2009 08:29 AM V1-PT DECLINES REF TO TOBACCO CESS PRGM [facility] [place] [facility] Feb 05, 2009 08:29 AM V1-PT DECLINES TOBACCO CESSATION MEDS [facility] [place] [facility] Feb 05, 2009 08:29 AM V1-PT THINKING ABOUT QUIT TOBACCO USE [facility] [place] [facility] Aug 22, 2008 09:04 AM QUIT TOBACCO USE IN PAST YEAR [facility] [place] [facility] Mar 12, 2008 10:40 AM V1-PT DECLINES REF TO TOBACCO CESS PRGM [facility] [place] [facility] Mar 12, 2008 10:40 AM V1-PT DECLINES TOBACCO CESSATION MEDS [facility] [place] [facility] Mar 12, 2008 10:40 AM V1-PT NOT INTERESTED IN QUIT TOBACCO USE [facility] Mar 08, 2008 09:37 AM CURRENT SMOKER smokes one pack a day for about 10 years ago. [facility] Encounter Notes: All associated encounter notes [...] STAFF PHYSICIAN Signed: 07/27/2023 14:28 GAL MADSEN [facility]
--- OUTSIDE RECORDS SUMMARY | 2024-07-25 11:29 | XMS_ITS | Encounter Summary ---
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 Address [address] [place] [id number] Care Team Providers Care Sediment Remediation Consultant Name Role Phone ROMANA CASTILLO Primary [...] Garcia's Name Patient's Relationship to Policy Garcia [facility] (MEDICAID) [facility] May 14, 2009 [id number] SAMPLE,ROCCO MOORE PATIENT [facility]ICAID [facility] May 14, 2009 [id number] SAMPLE,ROCCO MOORE PATIENT MEDICAID MEDICAID [facility] Jul 26, 2018 MEDICAI D [id number] SAMPLE,ROCCO MOORE PATIENT MEDICARE (WNR) MEDICARE (M) PART A November 24, 2015 PART A [id number] SAMPLE,ROCCO MOORE PATIENT MEDICARE (WNR) MEDICARE (M) PART B November 24, 2015 PART B [id number] ROCCO QUEZADA PATIENT Selected Encounter This [...] - MEDICINE [place] [facility] [place] [facility] Sep 08, 2023 01:30 PM AMBULATORY - MEDICINE [place] [facility] [facility] Oct 06, 2023 09:00 AM AMBULATORY - MEDICINE [place] [facility] [facility] Oct 07, 2023 01:00 PM AMBULATORY - PSYCHIATRY [place] [facility] [place] [facility] Oct 25, 2023 11:00 AM AMBULATORY - MEDICINE [place] [facility] [place] [facility] Nov 09, 2023 09:00 AM AMBULATORY - MEDICINE [place] [facility] [facility] Nov 17, 2023 09:30 AM AMBULATORY - MEDICINE [place] [facility] [facility] Jan 03, 2024 11:00 AM AMBULATORY - PSYCHIATRY [place] [facility] [place] [facility] Jan 17, 2024 03:00 PM AMBULATORY - MEDICINE [place] [facility] [facility] Jan 26, 2024 09:30 AM AMBULATORY - MEDICINE [place] [facility] [facility] Feb 03, 2024 03:00 PM AMBULATORY - MEDICINE [place] [facility] [facility] Feb 14, 2024 11:00 AM AMBULATORY - PSYCHIATRY [place] [facility] [place] [facility] Social History: Smoking Status (Most [...] 31, 2023 11:00 AM VA-TOBACCO FORMER USER [place] [facility] [place] [facility] Tobacco Use History This section includes a history of the smoking, or tobacco-related health factors, that were collected on or before the date of the Encounter. The data comes from the [place] facility where the Encounter took place. Date/Time Smoking Status/Tobac co Use Comment Facility Mar 31, 2023 11:00 AM VA-TOBACCO QUIT 1 TO < 5 YRS [place] [facility] [place] [facility] Mar 25, 2022 10:30 AM VA-TOBACCO NEVER USED [place] [facility] [place] [facility] Mar 19, 2021 02:00 PM VA-TOBACCO FORMER USER [place] [facility] [place] [facility] Mar 19, 2021 02:00 PM VA-TOBACCO QUIT < 1 YEAR [place] [facility] [place] [facility] Sep 20, 2018 11:24 AM VA-TOBACCO USE DECLINED TO ANSWER [place] [facility] [place] [facility] Oct 21, 2017 08:13 AM QUIT TOBACCO USE IN PAST YEAR [place] [facility] [place] [facility] Dec 30, 2016 08:28 AM QUIT TOBACCO USE 1-7 YEARS AGO [place] [facility] [place] [facility] Jun 04, 2016 08:43 AM QUIT TOBACCO USE 1-7 YEARS AGO [place] [facility] [place] [facility] May 17, 2015 08:45 AM QUIT TOBACCO USE 1-7 YEARS AGO quit 2 years ago. [place] [facility] [place] [facility] Jun 07, 2014 09:25 AM QUIT TOBACCO USE 1-7 YEARS AGO [place] [facility] [place] [facility] November 30, 2013 08:44 AM QUIT TOBACCO USE IN PAST YEAR [place] [facility] [place] [facility] May 22, 2013 10:10 AM QUIT TOBACCO USE IN PAST YEAR [place] [facility] [place] [facility] December 01, 2012 01:54 PM QUIT TOBACCO USE IN PAST YEAR [place] [facility] [place] [facility] Jun 07, 2012 08:16 AM V1-PT DECLINES TOBACCO CESSATION MEDS [place] [facility] [place] [facility] Jun 07, 2012 08:16 AM V1-PT THINKING ABOUT QUIT TOBACCO USE [facility] [place] [facility] Jan 05, 2012 09:00 AM CURRENT SMOKER intermittenly [facility] [place] [facility] Jan 05, 2012 09:00 AM V1-PT DECLINES REF TO TOBACCO CESS PRGM [place] [facility] [place] [facility] Jan 05, 2012 09:00 AM V1-PT DECLINES TOBACCO CESSATION MEDS [facility] [place] [facility] Jan 05, 2012 09:00 AM V1-PT THINKING ABOUT QUIT TOBACCO USE [facility] [place] [facility] Feb 17, 2011 09:52 AM V1-PT DECLINES TOBACCO CESSATION MEDS [place] [facility] [place] [facility] Feb 17, 2011 09:52 AM V1-PT THINKING ABOUT QUIT TOBACCO USE [place] [facility] [place] [facility] Aug 13, 2010 11:31 AM QUIT TOBACCO [facility] [place] [facility] Feb 19, 2010 01:26 PM QUIT TOBACCO USE IN PAST YEAR [place] [facility] [place] [facility] Sep 13, 2009 11:04 AM QUIT TOBACCO USE [facility]ST [facility] [place] [facility] Feb 05, 2009 08:29 AM V1-PT DECLINES REF TO TOBACCO CESS [facility] [place] [facility] Feb 05, 2009 08:29 AM V1-PT DECLINES TOBACCO CESSATION MEDS [facility] [place] [facility] Feb 05, 2009 08:29 AM V1-PT THINKING ABOUT QUIT TOBACCO USE [place] [facility] [place] [facility] Aug 22, 2008 09:04 AM QUIT TOBACCO USE IN PAST YEAR [place] [facility] [place] [facility] Mar 12, 2008 10:40 AM V1-PT DECLINES REF TO TOBACCO CESS PRGM [place] [facility] [place] [facility] Mar 12, 2008 10:40 AM V1-PT DECLINES TOBACCO CESSATION MEDS [place] [facility] [place] [facility] Mar 12, 2008 10:40 AM V1-PT NOT INTERESTED IN QUIT TOBACCO USE [place] [facility] [place] [facility] Mar 08, 2008 09:37 AM [...] so, though no transmissions have come through. [employer] financial sales representative attempted to contact her several times to walk her through the process; she did not answer the phone. [place] was a no-show for 08/17/23 [facility] appointment scheduled with her and did not answer the phone or respond to VM left for her. Attempted to call again this date; left again. Will discharge her from the program if no response by 09/02/23. /divya/ Rochelle Navas RD, LDN Staff Dietitian Signed: 08/20/2023 15:39 ROCHELLE NAVAS [facility]
--- NOTE | 2024-07-25 11:30 | MHC.PC.OV ---
Vital Signs 07/25/24 11:59 BMI Reason not done Patient refused/unable BP 128/74 Blood Pressure Location Lt brachial Position Sitting Pulse 65 Pulse Source Pulse Oximeter Pulse Oximetry (%) 98 Oxygen Delivery Method Nasal Cannula Intake Visit Reasons: Med Management Intake Note: Pt is here today for a follow up visit. Allergies gabapentin Allergy (Mild, Verified 07/25/24 12:00) Anxiety morphine [MORPHINE] Allergy (Unknown, Verified 07/25/24 12:00) ANAPHALAXIS, anaphylaxis propofol [From Diprivan] Allergy (Verified 07/25/24 12:00) Anaphylaxis Medication List - Last Reconciled 07/25/24 by Sandra Diego MD buprenorphine HCl 4 mg sublingual QID PRN cholecalciferol (vitamin D3) 50 mcg PO DAILY clonazepam 0.5 mg PO BID PRN diltiazem HCl ER 240 mg PO DAILY rqztxrzzart-knyvyvfer-ymfqnqvr 100-62.5-25 mcg (Trelegy Ellipta) 1 ea inhalation DAILY furosemide 20 mg PO BID omeprazole 20 mg PO DAILY oxycodone 5 mg PO Q8H PRN sodium zirconium cyclosilicate (Lokelma) 10 grams PO DAILY temazepam 30 mg PO BEDTIME theophylline ER (Roque-24) 400 mg PO DAILY Tobacco use date assessed: 07/25/24 Dental Screening Dental Screen Date: 05/26/24 HPI Med Management HPI Details Patient presents for the follow-up of COPD O2 dependent hypoventilation due to morbid obesity, hypertension, paroxysmal AFib chronic kidney disease stage 3. PFSH Medical History VERN (acute kidney injury) COPD (chronic obstructive pulmonary disease) Enterococcus faecalis infection MSSA (methicillin susceptible Staphylococcus aureus) MRSA (methicillin resistant staph aureus) culture positive Encounter for management of wound VAC Chronic osteomyelitis Hypertension Iron deficiency anemia COPD (chronic obstructive pulmonary disease) Femur fracture Crohn's colitis Morbid obesity due to excess calories Closed tibia fracture Acute on chronic respiratory failure with hypoxia and hypercapnia Nonrheumatic mitral (valve) stenosis Paroxysmal atrial fibrillation Dyspnea Hypoventilation associated with obesity Pickwickian syndrome Chronic hypercapnic respiratory failure Opioid use disorder Surgical History Hx of cholecystectomy History of open reduction and internal fixation (ORIF) procedure Status post open reduction and internal fixation (ORIF) of fracture Recent surgical procedure on lower extremity Family History Other Adopted Social History Household Members: Family Household Members Other:: , [place]. Daughter Carolyn, 21. Daughter's Boyfriend, 22. Neice, 21 Housing: House Do you presently have visiting nurse or other home services: Yes Alcohol intake: never Patient Tobacco Use Status: Former Tobacco user Years Smoked: 25 e-Cigarette/Vaping Use: Never Used Second Hand Smoke Exposure: No Advance Directives Date on File: 12/16/20 service: Yes Current occupational status: disabled Cognitive needs: No Hearing needs: No Vision needs: Yes Questionnaire PHQ-9 Over the last 2 weeks, how often have you been bothered by any of the following problems? 1. Little interest or pleasure in doing things: several days 2. Feeling down, depressed, or hopeless: several days 3. Trouble falling or staying asleep, or sleeping too much: several days 4. Feeling tired or having little energy: several days 5. Poor appetite or overeating: several days 6. Feeling bad about yourself - or that you are a failure or have let yourself or your family down: several days 7. Trouble concentrating on things, such as reading the newspaper or watching television: not at all 8. Moving or speaking so slowly that other people could have noticed. Or the opposite - being so fidgety or restless that you have been moving around a lot more than usual: not at all 9. Thoughts that you would be better off or of hurting yourself in some way: not at all Total score: 6 Depression Screening Interpretation: Negative Depression Screening Done: Yes 11215 - PHQ-9 Billing: Yes Source: Developed by Drs. Brady Stoner, Lara Cook, Juan Diego Noriega and colleagues, with an educational andra from [employer]. Thrive Questionnaire Date Thrive assessed: 06/29/24 I am a: Patient What is your living situation today?: I choose not to answer this question Within the past 12 months, did the food you bought not last and you didn't have the money to get more?: I choose not to answer this question Within the past 12 months, did you worry whether your food would run out before you got money to buy more?: I choose not to answer this question Do you have trouble paying for medicines?: I choose not to answer this question Do you have trouble getting transportation to medical appointments?: I choose not to answer this question Do you have trouble paying your heating and electricity bill?: I choose not to answer this question Do you have trouble taking care of your child, family member or friend?: I choose not to answer this question Do you have trouble with day-to-day activities such as bathing, preparing meals, shopping, managing finances, etc.?: I choose not to answer this question Are you currently unemployed and looking for a job?: I choose not to answer this question Are you interested in more education?: I choose not to answer this question Please select the resources that you would like help with: None Currently or been in a relationship where the following occur: I choose not to answer THRIVE Score: 0 GRETA-7 AMB Questionnaire GRETA-7 Date GRETA - 7 assessed: 06/29/24 Source: Developed by Drs. Brady Stoner, Lara Cook, Juan Diego Noriega and colleagues, with an educational andra from [employer]. Review of Systems Const All systems reviewed & are unremarkable except as noted in HPI and below ENT Reports no additional complaints Card Reports no additional complaints Resp Reports no additional complaints GI Reports no additional complaints Reports no additional complaints Physical exam (Primary Care) Vital Signs: Last Vital Signs Pulse 65 07/25/24 11:59 BP 128/74 07/25/24 11:59 Pulse Ox 98 07/25/24 11:59 Oxygen Delivery Method Nasal Cannula 07/25/24 11:59 Tobacco/Smoking Status: Tobacco use Status Tobacco use date assessed 07/25/24 07/25/24 12:00 Patient Tobacco Use Status Former Tobacco user 07/25/24 11:30 e-Cigarette/Vaping Use Never Used 07/25/24 11:30 PHQ-9: PHQ-9 Score PHQ-9: Total score 6 07/25/24 12:18 Depression Screening Interpretation: Negative Thrive Assessment: Date of Thrive Assessment Date Thrive assessed 06/29/24 07/25/24 11:30 Currently or been in a relationship where the following occur: I choose not to answer Const General: no acute distress HENMT Head: Yes normal to inspection Eyes General: appearance normal, both eyes and all related structures Resp Effort & Inspection: normal respiratory effort Auscultation: diminished lung sounds Cardio Rhythm: regular rhythm Heart sounds: S1 normal heart sound present and S2 normal heart sound present GI Inspection: Yes normal to inspection Palpation (GI): Soft to palpation Percussion: Yes normal to percussion Auscultation: normal bowel sounds Extrem Other: 1+ pitting edema and chronic venous stasis of both lower extremities Coding Level of Care Code Est Pt Level 5 (69505) Complex EM visit Add On G2211 Diagnoses Hyperglycemia R73.9 Chronic anemia D64.9 BMI 50.0-59.9, adult Z68.43 Paroxysmal atrial fibrillation I48.0 Chronic kidney disease, stage 3 N18.30 Acute on chronic heart failure with preserved ejection fraction (HFpEF) I50.33 Chronic hypoxic respiratory failure J96.11 Opioid use disorder F11.99 Additional Codes PHQ-9 - 89145 - PHQ-9 Billing: Yes ([id number]) Assessment & Plan Assessment & Plan (1) Hyperglycemia: Code(s): R73.9 - Hyperglycemia, unspecified Category: Medical Plan: ADA diet increase exercise weight loss discussed with the patient check A1c (2) Chronic anemia: Code(s): D64.9 - Anemia, unspecified Category: Medical Plan: Monitor CBC iron count (3) BMI 50.0-59.9, adult: Code(s): Z68.43 - Body mass index [BMI] 50.0-59.9, adult Category: Medical Plan: Decreasing caloric intake increasing physical activity discussed with the patient she has been unsuccessfully trying to lose weight for over 6 months. Zepbound 2.5 mg for the 1st month then increase to 5 mg weekly will be started. It is medically necessary for the patient to lose weight to decrease risk of diabetes, [place] CVA , obesity related comorbidities including pulmonary hypertension, heart failure, hypoventilation syndrome (4) Paroxysmal atrial fibrillation: Comment: 1 episode 2021, developed leg hematoma on anticoagulation Code(s): I48.0 - Paroxysmal atrial fibrillation Category: Medical Plan: Continue diltiazem for rate control (5) Chronic kidney disease, stage 3: Code(s): N18.30 - Chronic kidney disease, stage 3 unspecified Category: Medical Plan: Avoid nephrotoxins monitor renal function (6) Acute on chronic heart failure with preserved ejection fraction (HFpEF): Comment: Echo 03/2024 nl EF, mild , SEVERE PULMONARY HYPERTENSION Code(s): I50.33 - Acute on chronic diastolic (congestive) heart failure Category: Medical Plan: Continue current medications (7) Chronic hypoxic respiratory failure: Comment: Secondary to morbid obesity, hypoventilation, COPD, echo 04/2024 nl EF, severe pulmonary hypertension Code(s): J96.11 - Chronic respiratory failure with hypoxia Category: Medical Plan: Continue current inhalers, BiPAP and supplemental O2, follow-up with pulmonology (8) Opioid use disorder: Comment: Established with pain management at [facility], on tapering dose of oxycodone Code(s): F11.99 - Opioid use, unspecified with unspecified opioid-induced disorder Category: Medical Plan: Follow-up with [facility] Orders: Orders Microalbumin, Random (w Creat) 3 Months D64.9 - Anemia, unspecified, I48.0 - Paroxysmal atrial fibrillation, R73.9 - Hyperglycemia, unspecified, Z68.43 - Body mass index [BMI] 50.0-59.9, adult Comprehensive [place]. Panel Fast 3 Months D64.9 - Anemia, unspecified, I48.0 - Paroxysmal atrial fibrillation, R73.9 - Hyperglycemia, unspecified, Z68.43 - Body mass index [BMI] 50.0-59.9, adult Complete Blood Count Auto Diff 3 Months D64.9 - Anemia, unspecified, I48.0 - Paroxysmal atrial fibrillation, R73.9 - Hyperglycemia, unspecified, Z68.43 - Body mass index [BMI] 50.0-59.9, adult Hemoglobin A1c 3 Months D64.9 - Anemia, unspecified, I48.0 - Paroxysmal atrial fibrillation, R73.9 - Hyperglycemia, unspecified, Z68.43 - Body mass index [BMI] 50.0-59.9, adult Lipid Panel 3 Months D64.9 - Anemia, unspecified, I48.0 - Paroxysmal atrial fibrillation, R73.9 - Hyperglycemia, unspecified, Z68.43 - Body mass index [BMI] 50.0-59.9, adult TSH reflex Free T4 3 Months D64.9 - Anemia, unspecified, I48.0 - Paroxysmal atrial fibrillation, R73.9 - Hyperglycemia, unspecified, Z68.43 - Body mass index [BMI] 50.0-59.9, adult Medications: New tirzepatide (weight loss) (Zepbound) for 4 weeks 2.5 mg (0.5 mL) subcut QWEEK 2 mL 0RF tirzepatide (weight loss) (Zepbound) start on week 5th 5 mg (0.5 mL) subcut QWEEK 2 mL 1RF
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
--- OUTSIDE RECORDS SUMMARY | 2024-07-25 11:30 | XMS_ITS ---
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 Organization [place] Address [address] [place] [id number] Care Team Providers Care Terrazzo Installer Name Role Phone ROMANA CASTILLO Primary Care [...] Patient's Relationship to Policy Garcia [facility] (MEDICAID) [facility] May 14, 2009 [id number] SAMPLE,ROCCO MOORE PATIENT [facility] MEDICAID [facility] May 14, 2009 [id number] SAMPLE,ROCCO MOORE PATIENT MEDICAID MEDICAID [facility] Jul 26, 2018 MEDICAI D [id number] SAMPLE,ROCCO MOORE PATIENT MEDICARE (WNR) MEDICARE (M) PART A November 24, 2015 PART A [id number] SAMPLE,ROCCO MOORE PATIENT MEDICARE (WNR) MEDICARE (M) PART B November 24, 2015 PART B [id number] ROCCO QUEZADA PATIENT Selected Encounter This [...] - MEDICINE [place] [facility] [place] [facility] Sep 08, 2023 01:30 PM AMBULATORY - MEDICINE MD [facility] [place] [facility] Oct 06, 2023 09:00 AM AMBULATORY - MEDICINE MD [facility] [place] [facility] Oct 07, 2023 01:00 PM AMBULATORY - PSYCHIATRY MD [facility] [place] [facility] Oct 25, 2023 11:00 AM AMBULATORY - MEDICINE MD [facility] [place] [facility] Nov 09, 2023 09:00 AM AMBULATORY - MEDICINE [place] [facility] [place] [facility] Nov 17, 2023 09:30 AM AMBULATORY - MEDICINE MD [facility] [place] [facility] Jan 03, 2024 11:00 AM AMBULATORY - PSYCHIATRY [place] [facility] [place] [facility] Jan 17, 2024 03:00 PM AMBULATORY - MEDICINE MD [facility] [place] [facility] Jan 26, 2024 09:30 AM AMBULATORY - MEDICINE MD [facility] [place] [facility] Feb 03, 2024 03:00 PM AMBULATORY - MEDICINE MD [facility] [place] [facility] Feb 14, 2024 11:00 AM AMBULATORY - PSYCHIATRY [place] [facility] [place] [facility] Social History: Smoking Status (Most current) [...] 2023 11:00 AM VA-TOBACCO FOR[facility]ER [facility] Tobacco Use History This section includes a history of the smoking, or tobacco-related health factors, that were collected on or before the date of the Encounter. The data comes from the [place] facility where the Encounter took place. Date/Time Smoking Status/Tobac co Use Comment Facility Mar 31, 2023 11:00 AM VA-TOBACCO QUIT 1 TO < 5 YRS [facility] [place] [facility] Mar 25, 2022 10:30 AM VA-TOBACCO NEVER USED MD [facility] [facility] Mar 19, 2021 02:00 PM VA-TOBACCO FORMER USER MD [facility] [place] [facility] Mar 19, 2021 02:00 PM VA-TOBACCO QUIT < 1 YEAR [facility] [place] [facility] Sep 20, 2018 11:24 AM VA-TOBACCO USE DECLINED TO ANSWER [place] [facility] [place] [facility] Oct 21, 2017 08:13 AM QUIT TOBACCO USE IN PAST YEAR [facility] [place] [facility] Dec 30, 2016 08:28 AM QUIT TOBACCO USE 1-7 YEARS AGO [facility] [place] [facility] Jun 04, 2016 08:43 AM QUIT TOBACCO USE 1-7 YEARS AGO [facility] [place] [facility] May 17, 2015 08:45 AM QUIT TOBACCO USE 1-7 YEARS AGO quit 2 years ago. [place] [facility] [place] [place] [facility] Jun 07, 2014 09:25 AM QUIT TOBACCO USE 1-7 YEARS AGO [facility] [place] [facility] November 30, 2013 08:44 AM QUIT TOBACCO USE IN PAST YEAR [facility] [place] [facility] May 22, 2013 10:10 AM QUIT TOBACCO USE IN PAST YEAR [facility] [place] [facility] December 01, 2012 01:54 PM QUIT TOBACCO USE IN PAST YEAR [facility] [facility] Jun 07, 2012 08:16 AM V1-PT DECLINES TOBACCO CESSATION MEDS [facility] [place] [facility] Jun 07, 2012 08:16 AM V1-PT THINKING ABOUT QUIT TOBACCO USE [facility] [place] [facility] Jan 05, 2012 09:00 AM CURRENT SMOKER intermittenly [facility] [place] [facility] Jan 05, 2012 09:00 AM V1-PT DECLINES REF TO TOBACCO [facility]ESS [facility] [place] [facility] Jan 05, 2012 09:00 AM V1-PT DECLINES TOBACCO CESSATION MEDS [facility] [place] [facility] Jan 05, 2012 09:00 AM V1-PT THINKING ABOUT QUIT TOBACCO USE [facility] [facility] Feb 17, 2011 09:52 AM V1-PT DECLINES TOBACCO CESSATION MEDS [place] [facility] [place] [facility] Feb 17, 2011 09:52 AM V1-PT THINKING ABOUT QUIT [facility]ACCO [facility] [place] [facility] Aug 13, 2010 11:31 AM QUIT TOBACCO USE [facility]ST [facility] [place] [facility] Feb 19, 2010 01:26 PM QUIT TOBACCO USE IN PAST YEAR [facility] [facility] Sep 13, 2009 11:04 AM QUIT TOBACCO USE [facility]ST [facility] [place] [facility] Feb 05, 2009 08:29 AM V1-PT DECLINES REF TO TOBACCO CESS [facility] [place] [facility] Feb 05, 2009 08:29 AM V1-PT DECLINES TOBACCO [facility]ESSATION MEDS [facility] [place] [facility] Feb 05, 2009 08:29 AM V1-PT THINKING ABOUT QUIT TOBACCO USE [facility] [place] [facility] Aug 22, 2008 09:04 AM QUIT TOBACCO USE IN PAST YEAR MD [facility] [place] [facility] Mar 12, 2008 10:40 AM V1-PT DECLINES REF TO TOBACCO CESS PRGM [facility] [facility] Mar 12, 2008 10:40 AM V1-PT DECLINES TOBACCO CESSATION MEDS [facility] [place] [facility] Mar 12, 2008 10:40 AM V1-PT NOT INTERESTED IN QUIT [facility]BACCO [facility] [place] [facility] Mar 08, 2008 09:37 AM CURRENT SMOKER smokes one pack a day for about 10 years ago. [facility] Encounter Notes: All associated encounter notes This section contains the clinical notes associated to the Encounter. Date/Time Encounter Note(s) Provider Source Aug 27, 2023 04:48 PM RESPIRATORY THERAP Y NOTE: LOCAL TITLE: RESPIRATORY THERAPY NOTE(BLANK) STANDARD TITLE: RESPIRATORY THERAPY NOTE DATE OF NOTE: AUG 27, 2023@16:48 ENTRY DATE: AUG 27, 2023@16:48:48 AUTHOR: ROSALVA HARMON EXP COSIGNER: URGENCY: STATUS: COMPLETED Avenal uses oxygen through the MD. Her prescription is due for renewal but this typewriter operator automatic was unable to contact to verify. Her prescription will be renewed temporarily for 3 months. /divya/ ROSALVA HARMON BA, SURVEILLANCE SUPERVISOR, RPFT RESPIRATORY THERAPIST Signed: 08/27/2023 16:52 ROSALVA HARMON [facility]
--- OUTSIDE RECORDS SUMMARY | 2024-07-25 11:30 | XMS_ITS ---
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 Address [address] [place] [address] Care Team Providers Care Steel Sash Erector Name Role Phone ROMANA CASTILLO Primary Care [...] Garcia's Name Patient's Relationship to Policy Garcia [facility] (MEDICAID) [facility] May 14, 2009 [id number] SAMPLE,ROCCO MOORE PATIENT [facility] MEDICAID [facility] May 14, 2009 [id number] SAMPLE,ROCCO MOORE PATIENT MEDICAID MEDICAID [facility] [facility] Jul 26, 2018 MEDICAI D [id number] SAMPLE,ROCCO MOORE PATIENT MEDICARE (WNR) MEDICARE (M) PART A November 24, 2015 PART A [id number] SAMPLE,ROCCO MOORE PATIENT MEDICARE (WNR) MEDICARE (M) PART B November 24, 2015 PART B [id number] SAMPLE,ROCCO MOORE PATIENT Selected Encounter This section includes the information on record at [place] for the Encounter. Date/Time Encounter Type Encounter Description Reason Provider Source Aug 25, 2023 10:48 AM COLLJ & INTERPJ DATA EA 30 D TELEPHONE/MEDICIN E ICD-10-CM G47.30 Sleep apnea, unspecified ROHAN CROW Edwin Encounter Template Text not used by [place] Assessments - Encounter Diagnoses This section includes the primary and secondary diagnoses documented for the Encounter. Date/Time Primary/Secondary Diagnosis Diagnosis Name Provider Source Aug 25, 2023 10:48 AM PRIMARY Sleep apnea, unspecified ROHAN CROW [place] [facility] [facility] Plan of Treatment: Future Appointments (+ [...] MEDICINE [place] C NTR[place] [facility] Sep 08, 2023 01:30 PM AMBULATORY - MEDICINE [place] C [facility] [facility] Oct 06, 2023 09:00 AM AMBULATORY - MEDICINE [place] C [facility] [facility] Oct 07, 2023 01:00 PM AMBULATORY - PSYCHIATRY [place] [facility] [place] [facility] Oct 25, 2023 11:00 AM AMBULATORY - MEDICINE [place] C [facility] [facility] Nov 09, 2023 09:00 AM AMBULATORY - MEDICINE [place] C [facility] [facility] Nov 17, 2023 09:30 AM AMBULATORY - MEDICINE [place] C [facility] [facility] Jan 03, 2024 11:00 AM AMBULATORY - PSYCHIATRY [place] [facility] [place] [facility] Jan 17, 2024 03:00 PM AMBULATORY - MEDICINE [place] C [facility] [facility] Jan 26, 2024 09:30 AM AMBULATORY - MEDICINE [place] C [facility] [facility] Feb 03, 2024 03:00 PM AMBULATORY - [facility]ICINE [place] [facility] Feb 14, 2024 11:00 AM [facility]BULATORY [facility] Social History: Smoking Status (Most current) [...] took place. Date/Time Current Smoking Status Comment [facility] it Mar 31, 2023 11:00 AM VA-TOBACCO FORMER USER [facility] Tobacco Use History This section includes a history of the smoking, or tobacco-related health factors, that were collected on or before the date of the Encounter. The data comes from the [place] facility where the Encounter took place. Date/Time Smoking Status/Tobac co Use Comment Facility Mar 31, 2023 11:00 AM VA-TOBACCO QUIT 1 TO < 5 YRS [place] [facility] [facility] Mar 25, 2022 10:30 AM VA-TOBACCO NEVER USED [facility] Mar 19, 2021 02:00 PM VA-TOBACCO FORMER USER [place] [facility] [place] [facility] Mar 19, 2021 02:00 PM VA-TOBACCO QUIT < 1 YEAR [place] [facility] [place] [facility] Sep 20, 2018 11:24 AM VA-TOBACCO USE DECLINED TO ANSWER [facility] [place] [facility] Oct 21, 2017 08:13 AM QUIT TOBACCO USE IN PAST YEAR [place] [facility] [place] [facility] Dec 30, 2016 08:28 AM QUIT TOBACCO USE 1-7 YEARS AGO [place] [facility] [place] [facility] Jun 04, 2016 08:43 AM QUIT TOBACCO USE 1-7 YEARS AGO [place] [facility] [facility] May 17, 2015 08:45 AM QUIT TOBACCO USE 1-7 YEARS AGO quit 2 years ago. [place] [facility] [facility] Jun 07, 2014 09:25 AM QUIT TOBACCO USE 1-7 YEARS AGO [place] [facility] [facility] November 30, 2013 08:44 AM QUIT TOBACCO USE IN PAST YEAR [place] [facility] [facility] May 22, 2013 10:10 AM QUIT TOBACCO USE IN PAST YEAR [place] [facility] [place] [facility] December 01, 2012 01:54 PM QUIT TOBACCO USE IN PAST YEAR [place] [facility] [place] [facility] Jun 07, 2012 08:16 AM V1-PT DECLINES TOBACCO CESSATION MEDS [facility] [place] [facility] Jun 07, 2012 08:16 AM V1-PT THINKING ABOUT QUIT TOBACCO USE [place] [facility] [place] [facility] Jan 05, 2012 09:00 AM CURRENT SMOKER intermittenly [facility] [place] [facility] Jan 05, 2012 09:00 AM V1-PT DECLINES REF TO TOBACCO CESS PRGM [facility] [place] [place] [facility] Jan 05, 2012 09:00 AM V1-PT DECLINES TOBACCO CESSATION MEDS [facility] [place] [facility] Jan 05, 2012 09:00 AM V1-PT THINKING ABOUT QUIT [facility]BACCO USE [facility] [place] [facility] Feb 17, 2011 09:52 AM V1-PT DECLINES TOBACCO CESSATION MEDS [facility] [place] [facility] Feb 17, 2011 09:52 AM V1-PT THINKING ABOUT QUIT TOBACCO USE [facility] [place] [facility] Aug 13, 2010 11:31 AM QUIT TOBACCO USE IN PAST YEAR [facility] [place] [place] [facility] Feb 19, 2010 01:26 PM QUIT TOBACCO USE IN PAST YEAR [facility] [place] [facility] Sep 13, 2009 11:04 AM QUIT TOBACCO USE IN PAST YEAR [facility] [place] [facility] Feb 05, 2009 08:29 AM V1-PT DECLINES REF TO TOBACCO CESS PRGM [facility] [place] [facility] Feb 05, 2009 08:29 AM V1-PT DECLINES TOBACCO CESSATION MEDS [facility] [place] [facility] Feb 05, 2009 08:29 AM V1-PT THINKING ABOUT QUIT TOBACCO USE [facility] [place] [facility] Aug 22, 2008 09:04 AM QUIT TOBACCO USE IN PAST YEAR [facility] [place] [facility] Mar 12, 2008 10:40 AM V1-PT DECLINES REF TO TOBACCO CESS PRGM [facility] Mar 12, 2008 10:40 AM V1-PT DECLINES TOBACCO CESSATION MEDS [facility] Mar 12, 2008 10:40 AM V1-PT NOT INTERESTED IN QUIT TOBACCO USE [facility] Mar 08, 2008 09:37 AM CURRENT SMOKER smokes one pack a day for about 10 years ago. [facility] Encounter Notes: All associated encounter notes This section contains the clinical notes associated to the Encounter. Date/Time Encounter Note(s) Provider Source Aug 25, 2023 10:48 AM RESPIRATORY THERAP Y NOTE: LOCAL TITLE: RESPIRATORY THERAPY NOTE(BLANK) STANDARD TITLE: RESPIRATORY THERAPY NOTE DATE OF NOTE: AUG 25, 2023@10:48 ENTRY DATE: AUG 25, 2023@10:48:25 AUTHOR: ROHAN CROW EXP COSIGNER: URGENCY: STATUS: COMPLETED Patient diagnosed with sleep apnea data reviewed for Cpap renewal and supplies ordered from [facility]. [employer] COMPLIANCE PROGRAM Patient APAP compliance data reviewed via the [employer] program for the last 90 days. SETTINGS: Bipap 18/8cmh20 TOTAL DAYS USED 90 DAYS USED > 4hrs 90 AVG USAGE 9 hours LEAK 17 AHI: 0.9 Central 0 These results indicate [place] is compliant. [place]'s APAP Prescription will be renewed for 1 year. If pt has any questions or concerns regarding Apap, he/she can contact Respiratory at [phone] extension [phone]. /es/ ROHAN CROW CRT RESPIRATORY THERAPIST Signed: 08/25/2023 10:51 ROHAN CROW
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
--- OUTSIDE RECORDS SUMMARY | 2024-07-25 11:30 | XMS_ITS ---
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 Address [address] [place] [id number] Care Team Providers Care Mechanical Unit Repairer Name Role Phone ROMANA CASTILLO Primary [...] [facility] (MEDICAID) [facility] May 14, 2009 [id number] SAMPLE,ROCCO MOORE PATIENT [facility]ICAID [facility] May 14, 2009 [id number] SAMPLE,ROCCO MOORE PATIENT MEDICAID MEDICAID [facility] Jul 26, 2018 MEDICAI D [id number] SAMPLE,ROCCO MOORE PATIENT MEDICARE (WNR) MEDICARE (M) PART A November 24, 2015 PART A [id number] SAMPLE,ROCCO MOORE PATIENT MEDICARE (WNR) MEDICARE (M) PART B November 24, 2015 PART B [id number] ROCCO QUEZADA PATIENT Selected Encounter This [...] 08, 2023 01:00 PM AMBULATORY - MEDICINE [place] [facility] Sep 08, 2023 01:30 PM AMBULATORY - MEDICINE [place] C [place] [facility] Oct 06, 2023 09:00 AM AMBULATORY - MEDICINE [place] C [place] [facility] Oct 07, 2023 01:00 PM AMBULATORY - PSYCHIATRY [place] [facility] [place] [facility] Oct 25, 2023 11:00 AM AMBULATORY - MEDICINE [place] C [place] [facility] Nov 09, 2023 09:00 AM AMBULATORY - MEDICINE [place] C [place] [facility] Nov 17, 2023 09:30 AM AMBULATORY - MEDICINE [place] C [place] [facility] Jan 03, 2024 11:00 AM AMBULATORY - PSYCHIATRY [place] [facility] Jan 17, 2024 03:00 PM AMBULATORY - MEDICINE [place] C [place] [facility] Jan 26, 2024 09:30 AM AMBULATORY - MEDICINE [place] C [place] [facility] Feb 03, 2024 03:00 PM AMBULATORY - MEDICINE [place] C [place] [facility] Feb 14, 2024 11:00 AM AMBULATORY - PSYCHIATRY [place] [facility] Social History: Smoking Status (Most [...] 31, 2023 11:00 AM VA-TOBACCO FORMER USER [place] CNT [place] [facility] Tobacco Use History This section includes a history of the smoking, or tobacco-related health factors, that were collected on or before the date of the Encounter. The data comes from the [place] facility where the Encounter took place. Date/Time Smoking Status/Tobac co Use Comment Facility Mar 31, 2023 11:00 AM VA-TOBACCO QUIT 1 TO < 5 YRS [place] [facility] [place] [facility] Mar 25, 2022 10:30 AM VA-TOBACCO NEVER USED [place] [facility] Mar 19, 2021 02:00 PM VA-TOBACCO FORMER USER [place] [facility] Mar 19, 2021 02:00 PM VA-TOBACCO QUIT < 1 YEAR [place] [facility] [place] [facility] Sep 20, 2018 11:24 AM VA-TOBACCO USE DECLINED TO ANSWER [place] [facility] [facility] Oct 21, 2017 08:13 AM QUIT TOBACCO USE IN PAST YEAR [place] [facility] Dec 30, 2016 08:28 AM QUIT TOBACCO USE 1-7 YEARS AGO [place] [facility] [place] [facility] Jun 04, 2016 08:43 AM QUIT TOBACCO USE 1-7 YEARS AGO [place] [facility] [place] [facility] May 17, 2015 08:45 AM QUIT TOBACCO USE 1-7 YEARS AGO quit 2 years ago. [place] [facility] [place] [facility] Jun 07, 2014 09:25 AM QUIT TOBACCO USE 1-7 YEARS AGO [place] [facility] [facility] November 30, 2013 08:44 AM QUIT TOBACCO USE IN PAST YEAR [place] [facility] [place] [facility] May 22, 2013 10:10 AM QUIT TOBACCO USE IN PAST YEAR [place] [facility] [place] [facility] December 01, 2012 01:54 PM QUIT TOBACCO USE IN PAST YEAR [place] [facility] [facility] Jun 07, 2012 08:16 AM V1-PT DECLINES TOBACCO CESSATION MEDS [place] [facility] [facility] Jun 07, 2012 08:16 AM V1-PT THINKING ABOUT QUIT TOBACCO USE [place] [facility] [place] [facility] Jan 05, 2012 09:00 AM CURRENT SMOKER intermittenly [place] [facility] [place] [facility] Jan 05, 2012 09:00 AM V1-PT DECLINES REF TO TOBACCO CESS PRGM [place] [facility] [place] [facility] Jan 05, 2012 09:00 AM V1-PT DECLINES TOBACCO CESSATION MEDS [place] [facility] [place] [facility] Jan 05, 2012 09:00 AM V1-PT THINKING ABOUT QUIT TOBACCO USE [place] [facility] [place] [facility] Feb 17, 2011 09:52 AM V1-PT DECLINES TOBACCO CESSATION MEDS [place] [facility] Feb 17, 2011 09:52 AM V1-PT THINKING ABOUT QUIT TOBACCO USE [place] [facility] [facility] Aug 13, 2010 11:31 AM QU[facility] [place] [facility] Feb 19, 2010 01:26 PM QUIT TOBACCO USE IN PAST YEAR [place] [facility] [place] [facility] Sep 13, 2009 11:04 AM QUIT TOBACCO USE [facility]ST [facility] [place] [facility] Feb 05, 2009 08:29 AM V1-PT DECLINES REF TO TOBACCO CESS [facility] [place] [facility] Feb 05, 2009 08:29 AM V1-PT DECLINES TOBACCO CESSATION [facility] [place] [facility] Feb 05, 2009 08:29 AM V1-PT THINKING ABOUT QUIT TOBACCO USE [place] [facility] [facility] Aug 22, 2008 09:04 AM QUIT TOBACCO USE IN PAST YEAR [place] [facility] [facility] Mar 12, 2008 10:40 AM V1-PT DECLINES REF TO TOBACCO CESS PRGM [place] [facility] [place] [facility] Mar 12, 2008 10:40 AM V1-PT DECLINES TOBACCO CESSATION MEDS [place] [facility] Mar 12, 2008 10:40 AM V1-PT NOT INTERESTED IN QUIT TOBACCO USE [place] [facility] [place] [facility] Mar 08, 2008 09:37 AM [...] phone confirmed as correct. /divya/ JAYRO BELLA INTAKE MAN Signed: 08/24/2023 15:57 Receipt Acknowledged By: 08/30/2023 07:20 /divya/ DEVORAH CROWDER,JOINT SETTER RESPIRATORY THERAPIST 08/25/2023 10:47 /divya/ ROHAN CROW, GENERAL STUDIES PROGRAM CHAIR RESPIRATORY THERAPIST for СВЕТЛАНА DH[place] 08/25/2023 10:46 /divya/ ROHAN CROW, GENERAL STUDIES PROGRAM CHAIR RESPIRATORY THERAPIST JAYRO BELLA [facility]
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
--- OUTSIDE RECORDS SUMMARY | 2024-07-25 11:31 | XMS_ITS ---
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 Address [address] [place] [address] Care Team Providers Care Sports Apparel Internship Name Role Phone ROMANA CASTILLO Primary Care [...] Garcia [facility] (MEDICAID) MEDICAID [place] DEPT [facility] May 14, 2009 [id number] SAMPLE,ROCCO MOORE PATIENT [facility] MEDICAID [facility] May 14, 2009 [id number] SAMPLE,ROCCO MOORE PATIENT MEDICAID MEDICAID [facility] [place] Jul 26, 2018 MEDICAI D [id number] SAMPLE,ROCCO MOORE PATIENT MEDICARE (WNR) MEDICARE (M) PART A November 24, 2015 PART A [id number] SAMPLE,ROCCO MOORE PATIENT MEDICARE (WNR) MEDICARE (M) PART B November 24, 2015 PART B [id number] SAMPLE,ROCCO MOORE PATIENT Selected Encounter This [...] - [place]ICINE [place] [facility] [place] [facility] Sep 08, 2023 01:30 PM [place] [facility] [place] [facility] Oct 06, 2023 09:00 AM [place] [facility] [place] [facility] Oct 07, 2023 01:00 PM AMBULATORY [place]AT[place] [facility] [place] [facility] Oct 25, 2023 11:00 AM [place] [facility] [place] [facility] Nov 09, 2023 09:00 AM [place] [facility] [place] [facility] Nov 17, 2023 09:30 AM [place] [facility] [facility] Jan 03, 2024 11:00 AM AMBULATORY [place]RY [place] [facility] [place] [facility] Jan 17, 2024 03:00 PM [place] [facility] [place] [facility] Jan 26, 2024 09:30 AM [place] [facility] [place] [facility] Feb 03, 2024 03:00 PM [place] [facility] [place] [facility] Feb 14, 2024 11:00 AM AMBULATORY [place] [facility] [place] [facility] Social History: Smoking Status [...] VA-TOBACCO QUIT 1 TO < 5 YRS [facility] Tobacco Use History This section includes a history of the smoking, or tobacco-related health factors, that were collected on or before the date of the Encounter. The data comes from the [place] facility where the Encounter took place. Date/Time Smoking Status/Tobac co Use Comment Facility Mar 31, 2023 11:00 AM VA-TOBACCO QUIT 1 TO < 5 YRS [place] [facility] [place] [facility] Mar 25, 2022 10:30 AM VA-TOBACCO NEVER USED [place] [facility] [place] [facility] Mar 19, 2021 02:00 PM VA-TO[facility]ACCO [facility] Mar 19, 2021 02:00 PM VA-TOBACCO QUIT < 1 YE[facility] [place] [facility] Sep 20, 2018 11:24 AM VA-TOBACCO USE DECLINED TO ANSWER [facility] [place] [facility] Oct 21, 2017 08:13 AM QUIT TOBACCO USE IN PAST YEAR [place] [facility] [place] [facility] Dec 30, 2016 08:28 AM QUIT TOBACCO USE 1-7 YEARS AGO [place] [facility] [place] [facility] Jun 04, 2016 08:43 AM QUIT TOBACCO USE 1-7 YEARS AGO [place] [facility] [place] [facility] May 17, 2015 08:45 AM QUIT TOBACCO USE 1-7 YEARS AGO quit 2 years ago. [place] [facility] [place] [facility] Jun 07, 2014 09:25 AM QUIT TOBACCO USE 1-7 YEARS AGO [place] [facility] [place] [facility] November 30, 2013 08:44 AM QUIT TOBACCO USE IN PAST YEAR [place] [facility] [place] [facility] May 22, 2013 10:10 AM QUIT TOBACCO USE IN PAST YEAR [place] [facility] [place] [facility] December 01, 2012 01:54 PM QUIT TOBACCO USE IN PAST YEAR [place] [facility] [place] [facility] Jun 07, 2012 08:16 AM V1-PT DECLINES TOBACCO CESSATION MEDS [facility] [place] [facility] Jun 07, 2012 08:16 AM V1-PT THINKING ABOUT QUIT TOBACCO USE [facility] [place] [facility] Jan 05, 2012 09:00 AM CURRENT SMOKER intermittenly [facility] [place] [facility] Jan 05, 2012 09:00 AM V1-PT DECLINES REF TO TOBACCO CESS PRGM [facility] [place] [facility] Jan 05, 2012 09:00 AM V1-PT DECLINES TOBACCO CESSATION MEDS [facility] [place] [facility] Jan 05, 2012 09:00 AM V1-PT THINKING ABOUT QUIT TOBACCO USE [facility] [place] [facility] Feb 17, 2011 09:52 AM V1-PT DECLINES TOBACCO CESSATION MEDS [facility] [place] [facility] Feb 17, 2011 09:52 AM V1-PT THINKING ABOUT QUIT TOBACCO USE [facility] [place] [facility] Aug 13, 2010 11:31 AM QUIT TOBACCO USE IN PAST YEAR [place] [facility] [place] [facility] Feb 19, 2010 01:26 PM QUIT TOBACCO USE IN PAST YEAR [facility] [place] [facility] Sep 13, 2009 11:04 AM QUIT TOBACCO USE IN PAST YEAR [place] [facility] [place] [facility] Feb 05, 2009 08:29 AM V1-PT DECLINES REF TO TOBACCO CESS [facility] [place] [facility] Feb 05, 2009 08:29 AM V1-PT DECLINES TOBACCO CESSATION MEDS [facility] [place] [facility] Feb 05, 2009 08:29 AM V1-PT THINKING ABOUT QUIT TOBACCO USE [facility] [place] [facility] Aug 22, 2008 09:04 AM QUIT TOBACCO USE IN PAST YEAR [place] [facility] [place] [facility] Mar 12, 2008 10:40 AM V1-PT DECLINES REF TO TOBACCO CESS PRGM [facility] [place] [facility] Mar 12, 2008 10:40 AM V1-PT DECLINES TOBACCO CESSATION MEDS [facility] [place] [facility] Mar 12, 2008 10:40 AM V1-PT NOT INTERESTED IN QUIT TOBACCO USE [facility] [place] [facility] Mar 08, 2008 09:37 AM CURRENT SMOKER smokes one pack a day for about 10 years ago. [facility] Encounter Notes: All associated encounter [...] SCHEDULING ADMINISTRATION Has ADDENDA MIKE MERINO FROM [facility] CALLED TO GO A MEDICATION REC WITH THE PACT. THE PT WAS DISCHARGED FROM [facility] AND NEEDS A POST DISCHARGE FOLLOW UP. PLEASE CALL THE PT AT HOME PHONE ON FILE WELL IS BEING REQUESTED /isabella NICHOLAS Signed: 09/02/2023 15:45 Receipt Acknowledged By: 09/03/2023 13:40 /divya/ OLGA GREEN, MSN, RN, CNL PRIMARY CARE TEAM NURSE 09/03/2023 11:54 /divya/ Fabiola Hooker RN Primary Care Staff Nurse 09/03/2023 ADDENDUM STATUS: COMPLETED left message for cb Vet has PCP appt on 09/08 /divya/ Fabiola Hooker RN Primary Care Staff Nurse Signed: 09/03/2023 11:53 CAT[place] NICHOLAS [facility]
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
--- OUTSIDE RECORDS SUMMARY | 2024-07-25 11:32 | XMS_ITS | Encounter Summary ---
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 Organization [place] Address [address] [place] [id number] Care Team Providers Care Marker Hand Name Role Phone ROMANA CASTILLO Primary [...] Garcia's Name Patient's Relationship to Policy Garcia [facility] (MEDICAID) [facility] May 14, 2009 [id number] SAMPLE,ROCCO MOORE PATIENT [facility] MEDICAID [facility] H[facility] May 14, 2009 [id number] SAMPLE,ROCCO MOORE PATIENT MEDICAID MEDICAID [facility] [place] Jul 26, 2018 MEDICAI D [id number] SAMPLE,ROCCO MOORE PATIENT MEDICARE (WNR) MEDICARE (M) PART A November 24, 2015 PART A [id number] SAMPLE,ROCCO MOORE PATIENT MEDICARE (WNR) MEDICARE (M) PART B November 24, 2015 PART B [id number] ROCCO QUEZADA PATIENT Selected Encounter This [...] - MEDICINE [place] [facility] [place] [facility] Sep 08, 2023 01:30 PM AMBULATORY - MEDICINE [place] [facility] [place] [facility] Oct 06, 2023 09:00 AM AMBULATORY - MEDICINE [place] [facility] [place] [facility] Oct 07, 2023 01:00 PM AMBULATORY - PSYCHIATRY [place] [facility] [place] [facility] Oct 25, 2023 11:00 AM AMBULATORY - MEDICINE [place] [facility] [place] [facility] Nov 09, 2023 09:00 AM AMBULATORY - MEDICINE [place] [facility] [place] [facility] Nov 17, 2023 09:30 AM AMBULATORY - MEDICINE [place] [facility] [place] [facility] Jan 03, 2024 11:00 AM AMBULATORY - PSYCHIATRY [place] [facility] [place] [facility] Jan 17, 2024 03:00 PM AMBULATORY - MEDICINE [place] [facility] [place] [facility] Jan 26, 2024 09:30 AM AMBULATORY - MEDICINE [place] [facility] [place] [facility] Feb 03, 2024 03:00 PM AMBULATORY - MEDICINE [place] [facility] [place] [facility] Feb 14, 2024 11:00 AM AMBULATORY - PSYCHIATRY [place] [facility] [place] [facility] Social History: Smoking Status [...] VA-TOBACCO QUIT 1 TO < 5 YRS [facility] Tobacco Use History This section includes a history of the smoking, or tobacco-related health factors, that were collected on or before the date of the Encounter. The data comes from the [place] facility where the Encounter took place. Date/Time Smoking Status/Tobac co Use Comment Facility Mar 31, 2023 11:00 AM VA-TOBACCO QUIT 1 TO < 5 YRS [place] [facility] [place] [facility] Mar 25, 2022 10:30 AM VA-TOBACCO NEVER USED [place] [facility] [place] [facility] Mar 19, 2021 02:00 PM VA-TOBACCO FORMER USER [place] [facility] Mar 19, 2021 02:00 PM VA-TOBACCO QUIT < [facility] [place] [facility] Sep 20, 2018 11:24 AM VA-TOBACCO USE DECLINED TO ANSWER [facility] [place] [facility] Oct 21, 2017 08:13 AM QUIT TOBACCO USE IN PAST YEAR [place] [facility] [place] [facility] Dec 30, 2016 08:28 AM QUIT TOBACCO USE 1-7 YEARS AGO [place] [facility] [place] [facility] Jun 04, 2016 08:43 AM QUIT TOBACCO USE 1-7 YEARS AGO [place] [facility] [place] [facility] May 17, 2015 08:45 AM QUIT TOBACCO USE 1-7 YEARS AGO quit 2 years ago. [place] [facility] [place] [facility] Jun 07, 2014 09:25 AM QUIT TOBACCO USE 1-7 YEARS AGO [place] [facility] [place] [facility] November 30, 2013 08:44 AM QUIT TOBACCO USE IN PAST YEAR [place] [facility] [place] [facility] May 22, 2013 10:10 AM QUIT TOBACCO USE IN PAST YEAR [place] [facility] [place] [facility] December 01, 2012 01:54 PM QUIT TOBACCO USE IN [facility]ST [facility] [place] [facility] Jun 07, 2012 08:16 AM V1-PT DECLINES TOBACCO CESSATION MEDS [place] [facility] [place] [facility] Jun 07, 2012 08:16 AM V1-PT THINKING ABOUT QUIT TOBACCO USE [place] [facility] [place] [facility] Jan 05, 2012 09:00 AM CURRENT SMOKER intermittenly [place] [facility] [place] [facility] Jan 05, 2012 09:00 AM V1-PT DECLINES REF TO TOBACCO CESS [facility] [place] [place] [facility] Jan 05, 2012 09:00 AM V1-PT DECLINES TOBACCO CESSATION MEDS [facility] [place] [facility] Jan 05, 2012 09:00 AM V1-PT THINKING ABOUT QUIT TOBACCO USE [facility] [place] [facility] Feb 17, 2011 09:52 AM V1-PT DECLINES TOBACCO CESSATION MEDS [facility] [place] [facility] Feb 17, 2011 09:52 AM V1-PT THINKING ABOUT QUIT TOBACCO USE [facility] [place] [place] [facility] Aug 13, 2010 11:31 AM QUIT TOBACCO USE IN PAST YEAR [place] [facility] [place] [facility] Feb 19, 2010 01:26 PM QUIT TOBACCO USE IN PAST YEAR [facility] [place] [facility] Sep 13, 2009 11:04 AM QUIT TOBACCO USE IN PAST YEAR [facility] [place] [facility] Feb 05, 2009 08:29 AM V1-PT DECLINES REF TO TOBACCO CESS [facility] [place] [place] [facility] Feb 05, 2009 08:29 AM V1-PT DECLINES TOBACCO CESSATION [facility] [place] [place] [facility] Feb 05, 2009 08:29 AM V1-PT THINKING ABOUT QUIT TOBACCO USE [facility] [place] [facility] Aug 22, 2008 09:04 AM QUIT TOBACCO USE IN PAST YEAR [place] [facility] [place] [facility] Mar 12, 2008 10:40 AM V1-PT DECLINES REF TO TOBACCO CESS PRGM [place] [facility] [place] [facility] Mar 12, 2008 10:40 AM V1-PT DECLINES TOBACCO CESSATION MEDS [place] [facility] [place] [facility] Mar 12, 2008 10:40 AM V1-PT NOT INTERESTED IN QUIT TOBACCO USE [place] [facility] [place] [facility] Mar 08, 2008 09:37 AM CURRENT SMOKER smokes one pack a day for about 10 years ago. [facility]
--- OUTSIDE RECORDS SUMMARY | 2024-07-25 11:32 | XMS_ITS | Encounter Summary ---
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 Address [address] [place] [id number] Care Team Providers Care Freight Engineer Name Role Phone ROMANA CASTILLO Primary [...] Policy Garcia [facility] (MEDICAID) [facility] May 14, 2009 [id number] SAMPLE,ROCCO MOORE PATIENT [facility]ID [facility] May 14, 2009 [id number] SAMPLE,ROCCO MOORE PATIENT MEDICAID MEDICAID [facility] [place] Jul 26, 2018 MEDICAI D [id number] SAMPLE,ROCCO MOORE PATIENT MEDICARE (WNR) MEDICARE (M) PART A November 24, 2015 PART A [id number] SAMPLE,ROCCO MOORE PATIENT MEDICARE (WNR) MEDICARE (M) PART B November 24, 2015 PART B [id number] [phone] ROCCO QUEZADA PATIENT Selected Encounter This [...] 06, 2023 09:00 AM AMBULATORY - MEDICINE [place] [facility] Oct 07, 2023 01:00 PM AMBULATORY - PSYCHIATRY [place] [facility] Oct 25, 2023 11:00 AM AMBULATORY - MEDICINE [place] [facility] Nov 09, 2023 09:00 AM AMBULATORY - MEDICINE [place] [facility] Nov 17, 2023 09:30 AM AMBULATORY - MEDICINE [place] [facility] Jan 03, 2024 11:00 AM AMBULATORY - PSYCHIATRY [place] [facility] [place] [facility] Jan 17, 2024 03:00 PM AMBULATORY - MEDICINE [place] C [place] [facility] Jan 26, 2024 09:30 AM AMBULATORY - MEDICINE [place] C [place] [facility] Feb 03, 2024 03:00 PM AMBULATORY - MEDICINE [place] C [place] [facility] Feb 14, 2024 11:00 AM AMBULATORY - PSYCHIATRY [place] [facility] [place] [facility] Mar 06, 2024 09:00 AM AMBULATORY - MEDICINE [place] C [place] [facility] Vital Signs: All taken on the encounter date This section contains inpatient and outpatient Vital Signs collected on the date of the Encounter. Date/Time Temperature Pulse Blood Pressure Respiratory Rate SP02 Pain Height Weight Body Mass Index Source Sep 08, 2023 01:03 PM 97.9 71 167/69 20 93 6 [place] [facility] Social History: Smoking Status (Most current) [...] 31, 2023 11:00 AM [facility] Tobacco Use History This section includes a history of the smoking, or tobacco-related health factors, that were collected on or before the date of the Encounter. The data comes from the [place] facility where the Encounter took place. Date/Time Smoking Status/Tobac co Use Comment Facility Mar 31, 2023 11:00 AM VA-TOBACCO QUIT 1 TO < 5 YRS [facility] Mar 25, 2022 10:30 AM VA-TOBACCO NEVER USED [facility] Mar 19, 2021 02:00 PM VA-TOBACCO FORMER USER [place] [facility] [facility] Mar 19, 2021 02:00 PM VA-TOBACCO QUIT < 1 YEAR [place] [facility] [facility] Sep 20, 2018 11:24 AM VA-TOBACCO USE DECLINED TO ANSWER [place] [facility] Oct 21, 2017 08:13 AM QUIT TOBACCO USE IN PAST YEAR [place] [facility] [place] [facility] Dec 30, 2016 08:28 AM QUIT TOBACCO USE 1-7 YEARS AGO [place] [facility] Jun 04, 2016 08:43 AM QUIT TOBACCO USE 1-7 YEARS AGO [place] [facility] May 17, 2015 08:45 AM QUIT TOBACCO USE 1-7 YEARS AGO quit 2 years ago. [place] [facility] [facility] Jun 07, 2014 09:25 AM QUIT TOBACCO USE 1-7 YEARS AGO [place] [facility] November 30, 2013 08:44 AM QUIT [facility]BAC[facility] [place] [facility] May 22, 2013 10:10 AM QUIT TOBACCO USE IN PAST YEAR [place] [facility] December 01, 2012 01:54 PM QUIT TOBACCO USE IN PAST YEAR [place] [facility] [place] [facility] Jun 07, 2012 08:16 AM V1-PT DECLINES TOBACCO CESSATION MEDS [place] [facility] [place] [facility] Jun 07, 2012 08:16 AM V1-PT THINKING ABOUT QUIT TOBACCO USE [place] [facility] [place] [facility] Jan 05, 2012 09:00 AM CURRENT SMOKER intermittenly [place] [facility] [place] [facility] Jan 05, 2012 09:00 AM V1-PT DECLINES REF TO TOBACCO CESS PRGM [place] [facility] [place] [facility] Jan 05, 2012 09:00 AM V1-PT DECLINES TOBACCO CESSATION MEDS [place] [facility] [place] [facility] Jan 05, 2012 09:00 AM V1-PT THINKING ABOUT QUIT TOBACCO USE [place] [facility] [place] [facility] Feb 17, 2011 09:52 AM V1-PT DECLINES TOBACCO CESSATION MEDS [place] [facility] [place] [facility] Feb 17, 2011 09:52 AM V1-PT THINKING ABOUT QUIT TOBACCO USE [place] [facility] [place] [facility] Aug 13, 2010 11:31 AM QUIT TOBACCO USE IN PAST YEAR [place] [facility] [place] [facility] Feb 19, 2010 01:26 PM QUIT TOBACCO USE IN PAST YEAR [place] [facility] [facility] Sep 13, 2009 11:04 AM QUIT TOBACCO USE IN PAST YEAR [place] [facility] [facility] Feb 05, 2009 08:29 AM V1-PT DECLINES REF TO TOBACCO CESS PRGM [facility] [place] [facility] Feb 05, 2009 08:29 AM V1-PT DECLINES TOBACCO CESSATION MEDS [place] [facility] [place] [facility] Feb 05, 2009 08:29 AM V1-PT THINKING ABOUT QUIT TOBACCO USE [place] [facility] [place] [facility] Aug 22, 2008 09:04 AM QUIT TOBACCO USE IN PAST YEAR [place] [facility] [place] [facility] Mar 12, 2008 10:40 AM V1-PT DECLINES REF TO TOBACCO CESS PRGM [facility] [place] [facility] Mar 12, 2008 10:40 AM V1-PT DECLINES TOBACCO CESSATION MEDS [place] [facility] [place] [facility] Mar 12, 2008 10:40 AM V1-PT NOT INTERESTED IN QUIT TOBACCO USE [facility] Mar 08, 2008 09:37 AM [...] /isabella QUEVEDO Signed: 09/08/2023 10:01 LORI QUEVEDO [facility]
--- OUTSIDE RECORDS SUMMARY | 2024-07-25 11:32 | XMS_ITS ---
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 Address [address] [place] [address] Care Team Providers Care Flame Hardening Machine Setter Name Role Phone ROMANA CASTILLO Primary [...] Policy Garcia [facility] (MEDICAID) [place]ICAID [place] [facility] [place] May 14, 2009 [id number] SAMPLE,ROCCO MOORE PATIENT [facility]ICAID [facility] [place] May 14, 2009 [id number] SAMPLE,ROCCO MOORE PATIENT MEDICAID MEDICAID [facility] Jul 26, 2018 MEDICAI D [id number] SAMPLE,ROCCO MOORE PATIENT MEDICARE (WNR) MEDICARE (M) PART A November 24, 2015 PART A [id number] SAMPLE,ROCCO MOORE PATIENT MEDICARE (WNR) MEDICARE (M) PART B November 24, 2015 PART B [id number] SAMPLE,ROCCO MOORE PATIENT Selected Encounter This section includes the information on record at [place] for the Encounter. Date/Time Encounter Type Encounter Description Reason Pro vider Source Sep 06, 2023 12:59 PM Outpatient Encounter ADMIN PAT ACTIVTIES (MASNONCT) [...] - MEDICINE [place] [facility] Sep 08, 2023 01:30 PM AMBULATORY - MEDICINE [place] [facility] Oct 06, 2023 09:00 AM AMBULATORY - MEDICINE [place] [facility] Oct 07, 2023 01:00 PM AMBULATORY - PSYCHIATRY [place] [facility] Oct 25, 2023 11:00 AM AMBULATORY - MEDICINE [place] [facility] Nov 09, 2023 09:00 AM AMBULATORY - MEDICINE [place] [facility] Nov 17, 2023 09:30 AM AMBULATORY - MEDICINE [place] [facility] Jan 03, 2024 11:00 AM AMBULATORY - PSYCHIATRY [place] [place] [facility] Jan 17, 2024 03:00 PM AMBULATORY - MEDICINE [place] [facility] Jan 26, 2024 09:30 AM AMBULATORY - MEDICINE [place] [facility] Feb 03, 2024 03:00 PM AMBULATORY - MEDICINE [place] [facility] Feb 14, 2024 11:00 AM AMBULATORY - PSYCHIATRY [place] [place] [facility] Mar 06, 2024 09:00 AM AMBULATORY - MEDICINE [place] [facility] Social History: Smoking Status (Most current) and [...] 31, 2023 11:00 AM [facility]-TOBACCO [facility] Tobacco Use History This section includes a history of the smoking, or tobacco-related health factors, that were collected on or before the date of the Encounter. The data comes from the [place] facility where the Encounter took place. Date/Time Smoking Status/Tobac co Use Comment Facility Mar 31, 2023 11:00 AM VA-TOBACCO QUIT 1 TO < 5 YRS [place] [facility] Mar 25, 2022 10:30 AM VA-TOBACCO NEVER USED [place] [facility] Mar 19, 2021 02:00 PM VA-TOBACCO FORMER USER [place] [facility] Mar 19, 2021 02:00 PM VA-TOBACCO QUIT < 1 YEAR [place] [facility] Sep 20, 2018 11:24 AM VA-TOBACCO USE DECLINED TO ANSWER [place] [facility] Oct 21, 2017 08:13 AM QUIT TOBACCO USE IN PAST YEAR [place] [facility] Dec 30, 2016 08:28 AM QUIT TOBACCO USE 1-7 YEARS AGO [place] [facility] Jun 04, 2016 08:43 AM QUIT TOBACCO USE 1-7 YEARS AGO [place] [facility] May 17, 2015 08:45 AM QUIT TOBACCO USE 1-7 YEARS AGO quit 2 years ago. [place] [facility] Jun 07, 2014 09:25 AM QUIT TOBACCO USE 1-7 YEARS AGO [place] [place] [facility] November 30, 2013 08:44 AM QUIT TOBACCO USE IN PAST YEAR [place] [facility] May 22, 2013 10:10 AM QUIT TOBACCO USE IN PAST YEAR [place] [place] [facility] December 01, 2012 01:54 PM QUIT TOBACCO USE IN PAST YEAR [place] [facility] [place] [facility] Jun 07, 2012 08:16 AM V1-PT DECLINES TOBACCO CESSATION MEDS [place] [facility] [place] [facility] Jun 07, 2012 08:16 AM V1-PT THINKING ABOUT QUIT TOBACCO USE [place] [facility] [place] [facility] Jan 05, 2012 09:00 AM CURRENT SMOKER intermittenly [place] [facility] Jan 05, 2012 09:00 AM V1-PT DECLINES REF TO TOBACCO CESS PRGM [place] [facility] [place] [facility] Jan 05, 2012 09:00 AM V1-PT DECLINES TOBACCO CESSATION MEDS [place] [facility] [place] [facility] Jan 05, 2012 09:00 AM V1-PT THINKING ABOUT QUIT TOBACCO USE [place] [facility] [place] [facility] Feb 17, 2011 09:52 AM V1-PT DECLINES TOBACCO CESSATION MEDS [facility] [place] [place] [facility] Feb 17, 2011 09:52 AM V1-PT THINKING ABOUT QUIT TOBACCO USE [place] [facility] [place] [facility] Aug 13, 2010 11:31 AM QUIT TOBACCO USE IN PAST YEAR [place] [facility] Feb 19, 2010 01:26 PM QUIT TOBACCO USE IN PAST YEAR [place] [facility] Sep 13, 2009 11:04 AM QUIT TOBACCO USE IN PAST YEAR [place] [facility] [place] [facility] Feb 05, 2009 08:29 AM V1-PT DECLINES REF TO TOBACCO CESS [facility] [place] [facility] Feb 05, 2009 08:29 AM V1-PT DECLINES TOBACCO CESSATION MEDS [place] [facility] [place] [facility] Feb 05, 2009 08:29 AM V1-PT THINKING ABOUT QUIT TOBACCO USE [place] [facility] Aug 22, 2008 09:04 AM QUIT TOBACCO USE IN PAST YEAR [place] [facility] Mar 12, 2008 10:40 AM V1-PT DECLINES REF TO TOBACCO CESS PRGM [place] [place] [facility] Mar 12, 2008 10:40 AM V1-PT DECLINES TOBACCO CESSATION MEDS [place] [facility] [place] [facility] Mar 12, 2008 10:40 AM V1-PT NOT INTERESTED IN QUIT TOBACCO USE [facility] Mar 08, 2008 09:37 AM CURRENT SMOKER smokes one pack a day for about 10 years ago. [facility] Encounter Notes: All associated encounter notes This section contains the clinical notes associated to the Encounter. Date/Time Encounter Note(s) Provider Source Sep 06, 2023 12:59 PM ADMINISTRATIVE NOTE: LOCAL TITLE: CCC: SCHEDULING ADMINISTRATION STANDARD TITLE: ADMINISTRATIVE NOTE DATE OF NOTE: SEP 06, 2023@12:59:46 ENTRY DATE: SEP 06, 2023@12:59:46 AUTHOR: KEV BALLARD COSIGNER: URGENCY: STATUS: COMPLETED CCC: SCHEDULING ADMINISTRATION Has ADDENDA Patient Demographics Patient Name: REID QUEZADA Patient Primary Phone: [phone] Patient Primary Address: [address] [place] [id number] Patient : 1960 Patient Age: 63 Caller/Recipient Relation to Patient: Self Administrative Administrative Note Reason: Other Administrative Note Comments: Joy MERINO from [facility] called back regarding the vet's medication she states that are discrepancies please reach out to Joy at [phone] /divya/ KEV BALLARD Signed: 09/06/2023 12:59 Receipt Acknowledged By: 09/06/2023 14:37 /isabella Hooker RN Primary Care Staff Nurse for OLGA GREEN 09/06/2023 14:37 /isabella Hooker RN Primary Care Staff Nurse 09/06/2023 ADDENDUM STATUS: COMPLETED RC to Joy and verbally went over medication that we have listed here at the [place]. Inspector Watch Assembly informed Joy that [facility] has a sched PCP appt on 09/08 with PCP and if there are changes on what we have listed for medication keno writer / runner can fax updated medication list as well as PCP note. Joy provided fax number to send to if need be. /isabella Hooker RN Primary Care Staff Nurse Signed: 09/06/2023 14:40 09/08/2023 ADDENDUM STATUS: COMPLETED PCP visit note for today (09/08/23, [facility] /divya/ Fabiola Hooker RN Primary Care Staff Nurse Signed: 09/08/2023 14:18 KEV BALLARD [place] [facility]
--- OUTSIDE RECORDS SUMMARY | 2024-07-25 11:32 | XMS_ITS | Encounter Summary ---
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 Address [address] [place] [id number] Care Team Providers Care Machine Sole Leveler Name Role Phone ROMANA CASTILLO Primary Care [...] Garcia's Name Patient's Relationship to Policy Garcia [facility] (MEDICAID) [facility] May 14, 2009 [id number] SAMPLE,ROCCO MOORE PATIENT [facility] MEDICAID [facility] May 14, 2009 [id number] SAMPLE,ROCCO MOORE PATIENT MEDICAID MEDICAID [facility] Jul 26, 2018 MEDICAI D [id number] SAMPLE,ROCCO MOORE PATIENT MEDICARE (WNR) MEDICARE (M) PART A November 24, 2015 PART A [id number] SAMPLE,ROCCO MOORE PATIENT MEDICARE (WNR) MEDICARE (M) PART B November 24, 2015 PART B [id number] [phone] [id number] ROCCO QUEZADA PATIENT Selected Encounter This [...] 08, 2023 01:00 PM AMBULATORY - MEDICINE [place] [facility] Sep 08, 2023 01:30 PM AMBULATORY - MEDICINE [place] [facility] Oct 06, 2023 09:00 AM AMBULATORY - MEDICINE [place] [facility] Oct 07, 2023 01:00 PM AMBULATORY - PSYCHIATRY [place] [facility] Oct 25, 2023 11:00 AM AMBULATORY - MEDICINE [place] [facility] Nov 09, 2023 09:00 AM AMBULATORY - MEDICINE [place] [facility] Nov 17, 2023 09:30 AM AMBULATORY - MEDICINE [place] [facility] Jan 03, 2024 11:00 AM AMBULATORY - PSYCHIATRY [place] [facility] Jan 17, 2024 03:00 PM AMBULATORY - MEDICINE [place] [facility] Jan 26, 2024 09:30 AM AMBULATORY - MEDICINE [place] [facility] Feb 03, 2024 03:00 PM AMBULATORY - MEDICINE [place] [facility] Feb 14, 2024 11:00 AM AMBULATORY - PSYCHIATRY [place] [facility] Social History: Smoking Status (Most [...] 31, 2023 11:00 AM VA-TOBACCO FORMER USER [facility] Tobacco Use History This section includes a history of the smoking, or tobacco-related health factors, that were collected on or before the date of the Encounter. The data comes from the [place] facility where the Encounter took place. Date/Time Smoking Status/Tobac co Use Comment Facility Mar 31, 2023 11:00 AM VA-TOBACCO QUIT 1 TO < 5 YRS [place] [facility] Mar 25, 2022 10:30 AM VA-TOBACCO NEVER USED [place] [facility] Mar 19, 2021 02:00 PM VA-TOBACCO FORMER USER [place] [facility] Mar 19, 2021 02:00 PM VA-TOBACCO QUIT < [address] [facility] [place] [facility] Sep 20, 2018 11:24 AM VA-TOBACCO USE DECLINED TO ANSWER [place] [facility] Oct 21, 2017 08:13 AM QUIT TOBACCO USE IN PAST YEAR [place] [facility] Dec 30, 2016 08:28 AM QUIT TOBACCO USE 1-7 YEARS AGO [place] [facility] Jun 04, 2016 08:43 AM QUIT TOBACCO USE 1-7 YEARS AGO [place] [facility] May 17, 2015 08:45 AM QUIT TOBACCO USE 1-7 YEARS AGO quit 2 years ago. [place] [facility] Jun 07, 2014 09:25 AM QUIT TOBACCO USE 1-7 YEARS AGO [place] [facility] November 30, 2013 08:44 AM QUIT TOBACCO USE IN PAST YEAR [place] [facility] May 22, 2013 10:10 AM QUIT TOBACCO USE IN PAST YEAR [place] [facility] December 01, 2012 01:54 PM QUIT TOBACCO USE IN [facility]ST [facility] [place] [facility] Jun 07, 2012 08:16 AM V1-PT DECLINES TOBACCO CESSATION MEDS [place] [facility] Jun 07, 2012 08:16 AM V1-PT THINKING ABOUT QUIT TOBACCO USE [place] [facility] [place] [facility] Jan 05, 2012 09:00 AM CURRENT SMOKER intermittenly [place] [facility] [place] [facility] Jan 05, 2012 09:00 AM V1-PT DECLINES REF TO TOBACCO CESS [facility] [place] [facility] Jan 05, 2012 09:00 AM V1-PT DECLINES TOBACCO CESSATION MEDS [place] [facility] [place] [facility] Jan 05, 2012 09:00 AM V1-PT THINKING ABOUT QUIT TOBACCO USE [place] [facility] [place] [facility] Feb 17, 2011 09:52 AM V1-PT DECLINES TOBACCO CESSATION MEDS [place] [facility] Feb 17, 2011 09:52 AM V1-PT THINKING ABOUT QUIT [facility]BACCO USE [facility] [place] [facility] Aug 13, 2010 11:31 AM QUIT TOBACCO USE IN PAST YEAR [facility] [place] [facility] Feb 19, 2010 01:26 PM QUIT TOBACCO USE IN PAST YEAR [place] [facility] [place] [facility] Sep 13, 2009 11:04 AM QUIT TOBACCO USE IN PAST [facility] [place] [facility] Feb 05, 2009 08:29 AM V1-PT DECLINES REF TO TOBACCO CESS [facility] [place] [facility] Feb 05, 2009 08:29 AM V1-PT DECLINES TOBACCO CESSATION MED[facility] [place] [facility] Feb 05, 2009 08:29 AM V1-PT THINKING ABOUT QUIT TOBACCO USE [place] [facility] [facility] Aug 22, 2008 09:04 AM QUIT TOBACCO USE IN PAST YEAR [place] [facility] Mar 12, 2008 10:40 AM V1-PT DECLINES REF TO TOBACCO CESS PRGM [place] [facility] [place] [facility] Mar 12, 2008 10:40 AM V1-PT DECLINES TOBACCO CESSATION MEDS [place] [facility] [place] [facility] Mar 12, 2008 10:40 AM V1-PT NOT INTERESTED IN QUIT TOBACCO [facility] [place] [facility] Mar 08, 2008 09:37 AM CURRENT SMOKER smokes one pack a day for about 10 years ago. [facility] Encounter Notes: All associated encounter notes [...] REQUIRED Electronically Filed: 09/09/2023 by: MERCEDES DALY Records Associate MERCEDES DALY [facility]
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
--- OUTSIDE RECORDS SUMMARY | 2024-07-25 11:32 | XMS_ITS | Encounter Summary ---
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 Address [address] [place] [id number] Care Team Providers Care Windows Systems Admin Name Role Phone ROMANA CASTILLO Primary Care [...] [facility] (MEDICAID) [facility] May 14, 2009 [id number] SAMPLE,ROCCO MOORE PATIENT [facility]ID [facility] May 14, 2009 [id number] SAMPLE,ROCCO MOORE PATIENT MEDICAID MEDICAID [facility] [place] Jul 26, 2018 MEDICAI D [id number] SAMPLE,ROCCO MOORE PATIENT MEDICARE (WNR) MEDICARE (M) PART A November 24, 2015 PART A [id number] SAMPLE,ROCCO MOORE PATIENT MEDICARE (WNR) MEDICARE (M) PART B November 24, 2015 PART B [id number] [phone] ROCCO QUEZADA PATIENT Selected Encounter This section includes the information on record at [place] for the Encounter. Date/Time Encounter Type Encounter Description Reason Pro vider Source Sep 08, 2023 02:58 PM Outpatient Encounter PAIN CLINIC IHE Encounter Template Text not used by [place] Plan of Treatment: Future Appointments (+ 6 months) and Future Tests (+/- 45 days) The Plan of Treatment section includes future care activities for the patient from all [place] treatmentfacilities. This section includes future appointments and future orders which are active, pending or scheduled. Future Appointments This section includes appointments that were scheduled to occur 6 months from the date of the Encounter, up to a maximum of 20 appointments. The data comes from all [place] treatment facilities. Appointment Date/Time Appointment Type Appointme nt Facility Name Oct 06, 2023 09:00 AM AMBULATORY - MEDICINE [place] [facility] [place] [facility] Oct 07, 2023 01:00 PM AMBULATORY - PSYCHIATRY [place] [facility] [place] [facility] Oct 25, 2023 11:00 AM AMBULATORY - MEDICINE [place] [facility] [facility] Nov 09, 2023 09:00 AM AMBULATORY - MEDICINE [place] [facility] [place] [facility] Nov 17, 2023 09:30 AM AMBULATORY - MEDICINE [place] [facility] [facility] Jan 03, 2024 11:00 AM AMBULATORY - PSYCHIATRY [place] [facility] [facility] Jan 17, 2024 03:00 PM AMBULATORY - MEDICINE [place] [facility] [place] [facility] Jan 26, 2024 09:30 AM AMBULATORY - MEDICINE [place] [facility] [facility] Feb 03, 2024 03:00 PM AMBULATORY - MEDICINE [place] [facility] [place] [facility] Feb 14, 2024 11:00 AM AMBULATORY - PSYCHIATRY [place] [facility] [facility] Mar 06, 2024 09:00 AM AMBULATORY - MEDICINE [place] [facility] [facility] Vital Signs: All taken on the encounter date This section contains inpatient and outpatient Vital Signs collected on the date of the Encounter. Date/Time Temperature Pulse Blood Pressure Respiratory Rate SP02 Pain Height Weight Body Mass Index Source Sep 08, 2023 01:03 PM 97.9 71 167/69 20 93 6 [place] [facility] Social History: Smoking Status (Most current) and Tobacco Use (All prior to encounter date) This section includes the most current, and the historical, smoking and tobacco- related health factors from the [place] facility where the Encounter took place. Current Smoking Status This section includes the most current smoking, or tobacco-related health factor, from the [place] facility where the Encounter took place. Date/Time Current Smoking Status Comment Facil it Mar 31, 2023 11:00 AM VA-TOBACCO QUIT 1 TO < 5 YRS [facility] Tobacco Use History This section includes a history of the smoking, or tobacco-related health factors, that were collected on or before the date of the Encounter. The data comes from the [place] facility where the Encounter took place. Date/Time Smoking Status/Tobac co Use Comment Facility Mar 31, 2023 11:00 AM VA-TOBACCO QUIT 1 TO < 5 YRS [place] [facility] [place] [facility] Mar 25, 2022 10:30 AM VA-TOBACCO NEVER USED [place] [facility] [place] [facility] Mar 19, 2021 02:00 PM VA-TOBACCO FORMER USER [place] [facility] [facility] Mar 19, 2021 02:00 PM VA-TOBACCO QUIT < 1 YEAR [place] [facility] [place] [facility] Sep 20, 2018 11:24 AM VA-TOBACCO USE DECLINED TO ANSWER [place] [facility] [facility] Oct 21, 2017 08:13 AM QUIT TOBACCO USE IN PAST YEAR [place] [facility] [facility] Dec 30, 2016 08:28 AM QUIT TOBACCO USE 1-7 YEARS AGO [place] [facility] [place] [facility] Jun 04, 2016 08:43 AM QUIT TOBACCO USE 1-7 YEARS AGO [place] [facility] [place] [facility] May 17, 2015 08:45 AM QUIT TOBACCO USE 1-7 YEARS AGO quit 2 years ago. [place] [facility] [place] [facility] Jun 07, 2014 09:25 AM QUIT TOBACCO USE 1-7 YEARS AGO [place] [facility] [place] [facility] November 30, 2013 08:44 AM QUIT TOBACCO USE IN PAST YEAR [place] [facility] [facility] May 22, 2013 10:10 AM QUIT TOBACCO USE IN PAST YEAR [place] [facility] [facility] December 01, 2012 01:54 PM QUIT TOBACCO USE IN PAST YEAR [facility] [place] [facility] TOBACCO CESS PRGM [facility] [place] [facility] [...] IN PAST YEAR [place] [facility] [place] [facility] Feb 19, 2010 01:26 PM QUIT TOBACCO USE IN PAST YEAR [place] [facility] [place] [facility] Sep 13, 2009 11:04 AM QUIT TOBACCO USE IN PAST YEAR [place] [facility] [place] [facility] Feb 05, 2009 08:29 AM V1-PT DECLINES REF TO TOBACCO CESS PRGM [facility] [place] [facility] Feb 05, 2009 08:29 AM V1-PT DECLINES TOBACCO CESSATION MEDS [facility] [place] [facility] Feb 05, 2009 08:29 AM V1-PT THINKING ABOUT QUIT TOBACCO USE [facility] [place] [facility] Aug 22, 2008 09:04 AM QUIT TOBACCO USE IN PAST YEAR [place] [facility] [place] [facility] Mar 12, 2008 10:40 AM V1-PT DECLINES REF TO TOBACCO CESS PRGM [facility] [place] [facility] [...]
--- OUTSIDE RECORDS SUMMARY | 2024-07-25 11:32 | XMS_ITS | Encounter Summary ---
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 Address [address] [place] [id number] Care Team Providers Care Data Storage Specialist Name Role Phone ROMANA CASTILLO Primary [...] Garcia's Name Patient's Relationship to Policy Garcia [facility] (MEDICAID) [facility] May 14, 2009 [id number] SAMPLE,ROCCO MOORE PATIENT [facility] MEDICAID [facility] HUMAN [facility] May 14, 2009 [id number] SAMPLE,ROCCO MOORE PATIENT MEDICAID MEDICAID [facility] [place] Jul 26, 2018 MEDICAI D [id number] SAMPLE,ROCCO MOORE PATIENT MEDICARE (WNR) MEDICARE (M) PART A November 24, 2015 PART A [id number] SAMPLE,ROCCO MOORE PATIENT MEDICARE (WNR) MEDICARE (M) PART B November 24, 2015 PART B [id number] ROCCO QUEZADA PATIENT Selected Encounter This [...] - MEDICINE [place] [facility] [facility] Oct 07, 2023 01:00 PM AMBULATORY - PSYCHIATRY [place] [facility] [place] [facility] Oct 25, 2023 11:00 AM AMBULATORY - MEDICINE [place] [facility] [place] [facility] Nov 09, 2023 09:00 AM AMBULATORY - MEDICINE [place] [facility] [place] [facility] Nov 17, 2023 09:30 AM AMBULATORY - MEDICINE [place] [facility] [place] [facility] Jan 03, 2024 11:00 AM AMBULATORY - PSYCHIATRY [place] [facility] [place] [facility] Jan 17, 2024 03:00 PM AMBULATORY - MEDICINE [place] [facility] [place] [facility] Jan 26, 2024 09:30 AM AMBULATORY - MEDICINE [place] [facility] [place] [facility] Feb 03, 2024 03:00 PM AMBULATORY - MEDICINE [place] [facility] [place] [facility] Feb 14, 2024 11:00 AM AMBULATORY - PSYCHIATRY [place] [facility] [place] [facility] Mar 06, 2024 09:00 AM AMBULATORY - MEDICINE [place] [facility] [place] [facility] Vital Signs: All taken on the encounter date This section contains inpatient and outpatient Vital Signs collected on the date of the Encounter. Date/Time Temperature Pulse Blood Pressure Respiratory Rate SP02 Pain Height Weight Body Mass Index Source Sep 08, 2023 01:03 PM 97.9 71 167/69 20 93 6 [place] [facility] [place] [facility] Social History: Smoking Status [...] 2023 11:00 AM [facility]AC[facility] Tobacco Use History This section includes a history of the smoking, or tobacco-related health factors, that were collected on or before the date of the Encounter. The data comes from the [place] facility where the Encounter took place. Date/Time Smoking Status/Tobac co Use Comment Facility Mar 31, 2023 11:00 AM VA-TOBACCO QUIT 1 TO < 5 YRS [place] [facility] [facility] Mar 25, 2022 10:30 AM VA-TOBACCO NEVER USED [place] [facility] [facility] Mar 19, 2021 02:00 PM VA-TOBACCO FORMER USER [place] [facility] [place] [facility] Mar 19, 2021 02:00 PM VA-TOBACCO QUIT < 1 YEAR [place] [facility] [facility] Sep 20, 2018 11:24 AM VA-TOBACCO USE DECLINED TO ANSWER [place] [facility] [place] [facility] Oct 21, 2017 08:13 AM QUIT TOBACCO USE IN PAST YEAR [place] [facility] [place] [facility] Dec 30, 2016 08:28 AM QUIT TOBACCO USE 1-7 YEARS AGO [place] [facility] [place] [facility] Jun 04, 2016 08:43 AM QUIT TOBACCO USE 1-7 YEARS AGO [place] [facility] [place] [facility] May 17, 2015 08:45 AM QUIT TOBACCO USE 1-7 YEARS AGO quit 2 years ago. [place] [facility] [place] [facility] Jun 07, 2014 09:25 AM QUIT TOBACCO USE 1-7 YEARS AGO [place] [facility] [place] [facility] November 30, 2013 08:44 AM QUIT TOBACCO USE IN PAST YEAR [place] [facility] [place] [facility] May 22, 2013 10:10 AM QUIT TOBACCO USE IN PAST YEAR [place] [facility] [place] [facility] December 01, 2012 01:54 PM QUIT TOBACCO USE IN PAST YEAR [place] [facility] [place] [facility] Jun 07, 2012 08:16 AM V1-PT DECLINES TOBACCO CESSATION MEDS [facility] [place] [facility] Jun 07, 2012 08:16 AM V1-PT THINKING ABOUT QUIT TOBACCO USE [facility] [place] [facility] Jan 05, 2012 09:00 AM CURRENT SMOKER intermittenly [facility] [place] [facility] Jan 05, 2012 09:00 AM V1-PT DECLINES REF TO TOBACCO CESS PRGM [place] [facility] [place] [facility] Jan 05, 2012 09:00 AM V1-PT DECLINES TOBACCO CESSATION MEDS [facility] [place] [facility] Jan 05, 2012 09:00 AM V1-PT THINKING ABOUT QUIT TOBACCO USE [facility] [place] [facility] Feb 17, 2011 09:52 AM V1-PT DECLINES TOBACCO CESSATION MEDS [facility] [place] [facility] Feb 17, 2011 09:52 AM V1-PT THINKING ABOUT QUIT TOBACCO USE [facility] [place] [facility] Aug 13, 2010 11:31 AM QUIT TOBACCO USE IN PAST YEAR [facility] [place] [facility] Feb 19, 2010 01:26 PM QUIT TOBACCO USE IN PAST YEAR [facility] [place] [facility] Sep 13, 2009 11:04 AM QUIT TOBACCO USE IN PAST YEAR [facility] [place] [facility] Feb 05, 2009 08:29 AM V1-PT DECLINES REF TO TOBACCO CESS PRGM [facility] [place] [facility] Feb 05, 2009 08:29 AM V1-PT DECLINES TOBACCO CESSATION MEDS [facility] [place] [facility] Feb 05, 2009 08:29 AM V1-PT THINKING ABOUT QUIT TOBACCO USE [facility] [place] [facility] Aug 22, 2008 09:04 AM QUIT TOBACCO USE IN PAST YEAR [facility] [place] [facility] Mar 12, 2008 10:40 AM V1-PT DECLINES REF TO TOBACCO CESS PRGM [facility] [place] [facility] Mar 12, 2008 10:40 AM V1-PT DECLINES TOBACCO CESSATION MEDS [facility] [place] [facility] Mar 12, 2008 10:40 AM V1-PT NOT INTERESTED IN QUIT TOBACCO USE [facility] Mar 08, 2008 09:37 AM CURRENT SMOKER smokes one pack a day for about 10 years ago. [facility]
--- OUTSIDE RECORDS SUMMARY | 2024-07-25 11:32 | XMS_ITS | Encounter Summary ---
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 Organization [place] Address [address] [place] [id number] Care Team Providers Care Finger Buff Sewer Name Role Phone ROMANA CASTILLO Primary Care [...] [facility] (MEDICAID) [facility] May 14, 2009 [id number] SAMPLE,ROCCO MOORE PATIENT [facility] MEDICAID [facility] May 14, 2009 [id number] SAMPLE,ROCCO MOORE PATIENT MEDICAID MEDICAID [facility] Jul 26, 2018 MEDICAI D [id number] SAMPLE,ROCCO MOORE PATIENT MEDICARE (WNR) MEDICARE (M) PART A November 24, 2015 PART A [id number] [id number] [id number] SAMPLE,ROCCO MOORE PATIENT MEDICARE (WNR) MEDICARE (M) PART B November 24, 2015 PART B [id number] [id number] [id number] ROCCO QUEZADA PATIENT Selected Encounter This section includes the information on record at [place] for the Encounter. Date/Time Encounter Type Encounter Description Reason Pro vider Source Sep 08, 2023 01:39 PM Outpatient Encounter PRIMARY CARE/MEDICINE IHE Encounter [...] - MEDICINE [place] [facility] [place] [facility] Oct 07, 2023 01:00 PM AMBULATORY [place]AT[place] [facility] [place] [facility] Oct 25, 2023 11:00 AM AMBULATORY [place]ICINE [place] [facility] [facility] Nov 09, 2023 09:00 AM AMBULATORY [place]IC[place] [facility] [facility] Nov 17, 2023 09:30 AM AMBULATORY [place]ICINE [place] [facility] [place] [facility] Jan 03, 2024 11:00 AM AMBULATORY - PS[place]CHIATRY [place] [facility] [place] [facility] Jan 17, 2024 03:00 PM AMBULATORY [place] MEDICINE [place] [facility] [place] [facility] Jan 26, 2024 09:30 AM AMBULATORY - [place]ICINE [place] [facility] [place] [facility] Feb 03, 2024 03:00 PM AMBULATORY - MEDICINE [place] [facility] [place] [facility] Feb 14, 2024 11:00 AM AMBULATORY - PS[place]CHIATRY [place] [facility] [place] [facility] Mar 06, 2024 09:00 AM AMBULATORY - [place]ICINE [place] [facility] [place] [facility] Vital Signs: All taken on the encounter date This section contains inpatient and outpatient Vital Signs collected on the date of the Encounter. Date/Time Temperature Pulse Blood Pressure Respiratory Rate SP02 Pain Height Weight Body Mass Index Source Sep 08, 2023 01:03 PM 97.9 71 167/69 20 93 6 [place] [facility] [facility] Social History: Smoking Status (Most [...] [facility] Tobacco Use History This section includes a history of the smoking, or tobacco-related health factors, that were collected on or before the date of the Encounter. The data comes from the [place] facility where the Encounter took place. Date/Time Smoking Status/Tobac co Use Comment Facility Mar 31, 2023 11:00 AM VA-TOBACCO QUIT 1 TO < 5 YRS [place] [facility] [place] [facility] Mar 25, 2022 10:30 AM VA-TOBACCO NEVER USED [place] [facility] [place] [facility] Mar 19, 2021 02:00 PM VA-TOBACCO FORMER USER [place] [facility] [place] [facility] Mar 19, 2021 02:00 PM VA-TOBACCO QUIT < 1 YEAR [place] [facility] [place] [facility] Sep 20, 2018 11:24 AM VA-TOBACCO USE DECLINED TO ANSWER [place] [facility] [place] [facility] Oct 21, 2017 08:13 AM QUIT TOBACCO USE IN PAST YEAR [place] [facility] [place] [facility] Dec 30, 2016 08:28 AM QUIT TOBACCO USE 1-7 YEARS AGO [place] [facility] [place] [facility] Jun 04, 2016 08:43 AM QUIT TOBACCO USE 1-7 YEARS AGO [place] [facility] [place] [facility] May 17, 2015 08:45 AM QUIT TOBACCO USE 1-7 YEARS AGO quit 2 years ago. [place] [facility] [place] [facility] Jun 07, 2014 09:25 AM QUIT TOBACCO USE 1-7 YEARS AGO [place] [facility] [place] [facility] November 30, 2013 08:44 AM QUIT TOBACCO USE IN PAST YEAR [place] [facility] [place] [facility] May 22, 2013 10:10 AM QUIT TOBACCO USE IN PAST YEAR [place] [facility] [place] [facility] December 01, 2012 01:54 PM QUIT TOBACCO USE IN PAST YEAR [facility] [place] [facility] Jun 07, 2012 08:16 AM V1-PT DECLINES TOBACCO CESSATION MEDS [facility] [place] [facility] Jun 07, 2012 08:16 AM V1-PT THINKING ABOUT QUIT TOBACCO USE [facility] [place] [facility] Jan 05, 2012 09:00 AM CURRENT SMOKER intermittenly [facility] [place] [facility] Jan 05, 2012 09:00 AM V1-PT DECLINES REF TO TOBACCO CESS PRGM [facility] [place] [facility] Jan 05, 2012 09:00 AM V1-PT DECLINES TOBACCO CESSATION MEDS [facility] [place] [facility] Jan 05, 2012 09:00 AM V1-PT THINKING ABOUT QUIT TOBACCO USE [facility] [place] [facility] Feb 17, 2011 09:52 AM V1-PT DECLINES TOBACCO CESSATION MEDS [facility] [place] [facility] Feb 17, 2011 09:52 AM V1-PT THINKING ABOUT QUIT TOBACCO USE [facility] [place] [facility] Aug 13, 2010 11:31 AM QUIT TOBACCO USE IN PAST YEAR [facility] [place] [facility] Feb 19, 2010 01:26 PM QUIT TOBACCO USE IN PAST YEAR [facility] [place] [facility] Sep 13, 2009 11:04 AM QUIT TOBACCO USE IN PAST YEAR [facility] [place] [facility] Feb 05, 2009 08:29 AM V1-PT DECLINES REF TO TOBACCO CESS PRGM [facility] [place] [facility] Feb 05, 2009 08:29 AM V1-PT DECLINES TOBACCO CESSATION MEDS [facility] [place] [facility] Feb 05, 2009 08:29 AM V1-PT THINKING ABOUT QUIT TOBACCO USE [facility] [place] [facility] Aug 22, 2008 09:04 AM QUIT TOBACCO USE IN PAST YEAR [facility] [place] [facility] Mar 12, 2008 10:40 AM V1-PT DECLINES REF TO TOBACCO CESS PRGM [facility] [place] [facility] Mar 12, 2008 10:40 AM V1-PT DECLINES TOBACCO CESSATION MEDS [facility] [place] [facility] Mar 12, 2008 10:40 AM V1-PT NOT INTERESTED IN QUIT TOBACCO USE [facility] Mar 08, 2008 09:37 AM CURRENT SMOKER smokes one pack a day for about 10 years ago. [facility] Encounter Notes: All associated encounter notes This section contains the clinical notes associated to the Encounter. Date/Time Encounter Note(s) Provider Source Sep 08, 2023 01:39 PM ADMINISTRATIVE NOT E: LOCAL TITLE: ADMINISTRATIVE RECALL NOTE STANDARD TITLE: ADMINISTRATIVE NOTE DATE OF NOTE: SEP 08, 2023@13:39 ENTRY DATE: SEP 08, 2023@13:39:39 AUTHOR: ROSA WOLFE EXP COSIGNER: URGENCY: STATUS: COMPLETED RTC orders: Unable to contact patient: Attempts to contact: 1st attempt: Left voicemail 2nd attempt: 3rd attempt: 4th attempt: /es/ ROSA WOLFE Advanced It Operations Manager Signed: 09/08/2023 13:39 ROSA WOLFE [facility]
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
--- OUTSIDE RECORDS SUMMARY | 2024-07-25 11:33 | XMS_ITS | Encounter Summary ---
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 Organization [place] Address [address] [place] [address] Care Team Providers Care Sheep Farm Manager Name Role Phone ROMANA CASTILLO Primary [...] Garcia's Name Patient's Relationship to Policy Garcia [facility] (MEDICAID) [facility] May 14, 2009 [id number] SAMPLE,ROCCO MOORE PATIENT [facility]ICAID [facility] May 14, 2009 [id number] SAMPLE,ROCCO MOORE PATIENT MEDICAID MEDICAID [facility] [place] Jul 26, 2018 MEDICAI D [id number] SAMPLE,ROCCO MOORE PATIENT MEDICARE (WNR) MEDICARE (M) PART A November 24, 2015 PART A [id number] SAMPLE,ROCCO MOORE PATIENT MEDICARE (WNR) MEDICARE (M) PART B November 24, 2015 PART B [id number] ROCCO QUEZADA PATIENT Selected Encounter This [...] - MEDICINE [place] [facility] [facility] Oct 07, 2023 01:00 PM AMBULATORY - PSYCHIATRY [place] [facility] [place] [facility] Oct 25, 2023 11:00 AM AMBULATORY - MEDICINE [place] [facility] [place] [facility] Nov 09, 2023 09:00 AM AMBULATORY - MEDICINE [place] [facility] [place] [facility] Nov 17, 2023 09:30 AM AMBULATORY - MEDICINE [place] [facility] [place] [facility] Jan 03, 2024 11:00 AM AMBULATORY - PSYCHIATRY [place] [facility] [place] [facility] Jan 17, 2024 03:00 PM AMBULATORY - MEDICINE [place] [facility] [place] [facility] Jan 26, 2024 09:30 AM AMBULATORY - MEDICINE [place] [facility] [place] [facility] Feb 03, 2024 03:00 PM AMBULATORY - MEDICINE [place] [facility] [place] [facility] Feb 14, 2024 11:00 AM AMBULATORY - PSYCHIATRY [place] [facility] [place] [facility] Mar 06, 2024 09:00 AM AMBULATORY - MEDICINE [place] [facility] [place] [facility] Social History: Smoking Status (Most [...] 31, 2023 11:00 AM VA-TOBACCO [facility] Tobacco Use History This section includes a history of the smoking, or tobacco-related health factors, that were collected on or before the date of the Encounter. The data comes from the [place] facility where the Encounter took place. Date/Time Smoking Status/Tobac co Use Comment Facility Mar 31, 2023 11:00 AM VA-TOBACCO QUIT 1 TO < 5 YRS [facility] [place] [facility] Mar 25, 2022 10:30 AM VA-TOBACCO NEVER USED [place] [facility] [place] [facility] Mar 19, 2021 02:00 PM VA-TOBACCO FORMER USER [place] [facility] [place] [facility] Mar 19, 2021 02:00 PM VA-TOBACCO QUIT < 1 YEAR [facility] Sep 20, 2018 11:24 AM VA-TOBACCO USE DECLINED TO ANSWER [facility] [place] [facility] Oct 21, 2017 08:13 AM QUIT TOBACCO USE IN PAST YEAR [place] [facility] [place] [facility] Dec 30, 2016 08:28 AM QUIT TOBACCO USE 1-7 YEARS AGO [facility] [place] [facility] Jun 04, 2016 08:43 AM QUIT TOBACCO USE 1-7 YEARS AGO [place] [facility] [place] [facility] May 17, 2015 08:45 AM QUIT TOBACCO USE 1-7 YEARS AGO quit 2 years ago. [place] [facility] [place] [facility] Jun 07, 2014 09:25 AM QUIT TOBACCO USE 1-7 YEARS AGO [place] [facility] [place] [facility] November 30, 2013 08:44 AM QUIT TOBACCO USE IN PAST YEAR [place] [facility] [place] [facility] May 22, 2013 10:10 AM QUIT TOBACCO USE IN PAST YEAR [place] [facility] [place] [facility] December 01, 2012 01:54 PM QUIT TOBACCO USE IN PAST YEAR [facility] [place] [place] [facility] Jun 07, 2012 08:16 AM V1-PT DECLINES TOBACCO CESSATION MEDS [facility] Jun 07, 2012 08:16 AM V1-PT THINKING ABOUT QUIT TOBACCO USE [place] [facility] [place] [facility] Jan 05, 2012 09:00 AM CURRENT SMOKER intermittenly [facility] [place] [facility] Jan 05, 2012 09:00 AM V1-PT DECLINES REF TO TOBACCO CESS PRGM [place] [facility] [place] [facility] Jan 05, 2012 09:00 AM V1-PT DECLINES TOBACCO CESSATION MEDS [facility] [place] [facility] Jan 05, 2012 09:00 AM V1-PT THINKING ABOUT QUIT TOBACCO USE [place] [facility] [place] [facility] Feb 17, 2011 09:52 AM V1-PT DECLINES TOBACCO CESSATION MEDS [facility] [place] [facility] Feb 17, 2011 09:52 AM V1-PT THINKING ABOUT QUIT TOBACCO USE [place] [facility] [place] [facility] Aug 13, 2010 11:31 AM QUIT TOBACCO USE IN PAST YEAR [facility] [place] [facility] Feb 19, 2010 01:26 PM QUIT TOBACCO USE IN PAST YEAR [facility] [place] [facility] Sep 13, 2009 11:04 AM QUIT TOBACCO USE IN PAST YEAR [facility] [place] [facility] Feb 05, 2009 08:29 AM V1-PT DECLINES REF TO TOBACCO CESS PRGM [facility] [place] [facility] Feb 05, 2009 08:29 AM V1-PT DECLINES TOBACCO CESSATION MEDS [facility] [place] [facility] Feb 05, 2009 08:29 AM V1-PT THINKING ABOUT QUIT TOBACCO USE [facility] [place] [facility] Aug 22, 2008 09:04 AM QUIT TOBACCO USE IN PAST YEAR [place] [facility] [place] [facility] Mar 12, 2008 10:40 AM V1-PT DECLINES REF TO TOBACCO CESS PRGM [facility] [place] [facility] Mar 12, 2008 10:40 AM V1-PT DECLINES TOBACCO CESSATION MEDS [facility] [place] [facility] Mar 12, 2008 10:40 AM V1-PT NOT INTERESTED IN QUIT TOBACCO USE [facility] [place] [facility] Mar 08, 2008 09:37 AM CURRENT SMOKER smokes one pack a day for about 10 years ago. [facility] Encounter Notes: All associated encounter [...] months from SEP 16, 2023. Comment: Last [place] 09/24/14 repeat in 2yrs, in [place] [facility] /es/ Nikia Chandler MSN RN CNL Primary Care RN Signed: 09/16/2023 07:55 NIKIA CHANDLER [facility]
--- OUTSIDE RECORDS SUMMARY | 2024-07-25 11:33 | XMS_ITS | Encounter Summary ---
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 Address [address] [place] [id number] Care Team Providers Care Furnace Maintenance Name Role Phone ROMANA CASTILLO Primary Care [...] Policy Garcia [facility] (MEDICAID) [facility] May 14, 2009 [id number] SAMPLE,ROCCO MOORE PATIENT [facility] MEDICAID [facility] HUMAN [facility] May 14, 2009 [id number] SAMPLE,ROCCO MOORE PATIENT MEDICAID MEDICAID [facility] Jul 26, 2018 MEDICAI D [id number] SAMPLE,ROCCO MOORE PATIENT MEDICARE (WNR) MEDICARE (M) PART A November 24, 2015 PART A [id number] SAMPLE,ROCCO MOORE PATIENT MEDICARE (WNR) MEDICARE (M) PART B November 24, 2015 PART B [id number] ROCCO QUEZADA PATIENT Selected Encounter This section includes the [place] on [place] at [place] for [place] Encounter. Date/Time Encounter Type Encounter Description Reason Pro vider Source Aug 23, 2023 12:00 AM Outpatient Encounter EVENT (HISTORICAL) [...] 08, 2023 01:00 PM AM[place]ULATORY [place]ICINE [place] [facility] Sep 08, 2023 01:30 PM AM[place] [facility] Oct 06, 2023 09:00 AM AM[place]ULATORY [place]ICINE [place] [facility] Oct 07, 2023 01:00 PM AMBULATORY - PS[place]CHIATRY [place] [facility] Oct 25, 2023 11:00 AM AM[place]ULATORY [place]ICINE [place] [facility] Nov 09, 2023 09:00 AM AM[place]ULATORY [place]ICINE [place] [facility] Nov 17, 2023 09:30 AM AM[place]ULATORY [place]ICINE [place] [facility] Jan 03, 2024 11:00 AM AMBULATORY - PS[place]CHIATRY [place] [facility] Jan 17, 2024 03:00 PM AMBULATORY [place]ICINE [place] [facility] Jan 26, 2024 09:30 AM AMBULATORY - [place]ICINE [place] [facility] Feb 03, 2024 03:00 PM AMBULATORY - [place]ICINE [place] [facility] Feb 14, 2024 11:00 AM AMBULATORY - PS[place]CHIATRY [place] [facility] Social History: Smoking Status (Most [...] 2023 11:00 AM VA-TOBACCO [facility] Tobacco Use History This section includes a history of the smoking, or tobacco-related health factors, that were collected on or before the date of the Encounter. The data comes from the [place] facility where the Encounter took place. Date/Time Smoking Status/Tobac co Use Comment Facility Mar 31, 2023 11:00 AM VA-TOBACCO QUIT 1 TO < 5 YRS [place] [facility] Mar 25, 2022 10:30 AM VA-TOBACCO NEVER USED [place] [facility] Mar 19, 2021 02:00 PM VA-TOBACCO FORMER USER [place] [facility] Mar 19, 2021 02:00 PM VA-TOBACCO QUIT < 1 [facility] [place] [facility] Sep 20, 2018 11:24 AM VA-TOBACCO USE DECLINED TO ANSWER [facility] [place] [facility] Oct 21, 2017 08:13 AM QUIT TOBACCO USE IN PAST YEAR [place] [facility] Dec 30, 2016 08:28 AM QUIT TOBACCO USE 1-7 YEARS AGO [place] [facility] Jun 04, 2016 08:43 AM QUIT TOBACCO USE 1-7 YEARS AGO [place] [facility] May 17, 2015 08:45 AM QUIT TOBACCO USE 1-7 YEARS AGO quit 2 years ago. [place] [facility] Jun 07, 2014 09:25 AM QUIT TOBACCO USE 1-7 YEARS AGO [place] [facility] November 30, 2013 08:44 AM QUIT TOBACCO USE IN PAST YEAR [place] [facility] May 22, 2013 10:10 AM QUIT TOBACCO USE IN PAST YEAR [place] [facility] December 01, 2012 01:54 PM QUIT TOBACCO USE IN [facility]ST [facility] [place] [facility] Jun 07, 2012 08:16 AM V1-PT DECLINES TOBACCO CESSATION MEDS [place] [facility] Jun 07, 2012 08:16 AM V1-PT THINKING ABOUT QUIT TOBACCO USE [place] [facility] [facility] Jan 05, 2012 09:00 AM CURRENT SMOKER intermittenly [place] [facility] [place] [facility] Jan 05, 2012 09:00 AM V1-PT DECLINES REF TO TOBACCO CESS PRGM [facility] [place] [facility] Jan 05, 2012 09:00 AM V1-PT DECLINES TOBACCO CESSATION MEDS [place] [facility] [place] [facility] Jan 05, 2012 09:00 AM V1-PT THINKING ABOUT QUIT TOBACCO USE [place] [facility] [place] [facility] Feb 17, 2011 09:52 AM V1-PT DECLINES TOBACCO CESSATION MEDS [facility] [place] [facility] Feb 17, 2011 09:52 AM V1-PT THINKING ABOUT QUIT [facility]ACCO [facility] [place] [facility] Aug 13, 2010 11:31 AM QUIT TOBACCO USE IN PAST YEAR [facility] [place] [facility] Feb 19, 2010 01:26 PM QUIT TOBACCO USE IN PAST YEAR [place] [facility] Sep 13, 2009 11:04 AM QUIT TOBACCO USE IN PAST [facility] [place] [facility] Feb 05, 2009 08:29 AM V1-PT DECLINES REF TO TOBACCO CESS PRGM [facility] Feb 05, 2009 08:29 AM V1-PT DECLINES TOBACCO CESSATION MEDS [facility] [place] [facility] Feb 05, 2009 08:29 AM V1-PT THINKING ABOUT QUIT TOBACCO USE [place] [facility] Aug 22, 2008 09:04 AM QUIT TOBACCO USE IN PAST YEAR [facility] [place] [facility] Mar 12, 2008 10:40 AM V1-PT DECLINES REF TO TOBACCO CESS PRGM [place] [facility] Mar 12, 2008 10:40 AM V1-PT DECLINES TOBACCO CESSATION MEDS [place] [facility] [place] [facility] Mar 12, 2008 10:40 AM V1-PT NOT INTERESTED IN QUIT TOBACCO USE [facility] [place] [facility] Mar 08, 2008 09:37 AM CURRENT SMOKER smokes one pack a day for about 10 years ago. [facility] Encounter Notes: All associated encounter notes This section contains the clinical notes associated to the Encounter. Date/Time Encounter Note(s) Provider Source Aug 23, 2023 12:00 AM NONVA NOTE: LOCAL TITLE: NON-[facility] STANDARD TITLE: NONVA NOTE DATE OF NOTE: AUG 23, 2023 ENTRY DATE: SEP 09, 2023@11:32:20 AUTHOR: NIKOLAS DALY COSIGNER: URGENCY: STATUS: COMPLETED VistA Imaging - Scanned Document SCANNED DOCUMENT SIGNATURE NOT REQUIRED Electronically Filed: 09/09/2023 by: MERCEDES DALY Loan Documentation Specialist MERCEDES DALY [facility]
--- OUTSIDE RECORDS SUMMARY | 2024-07-25 11:33 | XMS_ITS ---
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 [facility] [place] Address [address] [place] [address] Care Team Providers Care Metal Neutralizer Name Role Phone ROMANA CASTILLO Primary Care [...] Garcia's Name Patient's Relationship to Policy Garcia [facility] (MEDICAID) [place]ICAID [place] HUMAN [facility] May 14, 2009 [id number] SAMPLE,ROCCO MOORE PATIENT [facility] May 14, 2009 [id number] SAMPLE,ROCCO MOORE PATIENT MEDICAID MEDICAID [facility] [place] Jul 26, 2018 MEDICAI D [id number] SAMPLE,ROCCO MOORE PATIENT MEDICARE (WNR) MEDICARE (M) PART A November 24, 2015 PART A [id number] SAMPLE,ROCCO MOORE PATIENT MEDICARE (WNR) MEDICARE (M) PART B November 24, 2015 PART B [id number] SAMPLE,ROCCO MOORE PATIENT Selected Encounter This [...] - MEDICINE [place] [facility] Oct 07, 2023 01:00 PM AMBULATORY - PSYCHIATRY [place] [facility] [place] [facility] Oct 25, 2023 11:00 AM AMBULATORY - MEDICINE [place] C [place] [facility] Nov 09, 2023 09:00 AM AMBULATORY - MEDICINE [place] C [place] [facility] Nov 17, 2023 09:30 AM AMBULATORY - MEDICINE [place] C [place] [facility] Jan 03, 2024 11:00 AM AMBULATORY - PSYCHIATRY [place] [facility] [place] [facility] Jan 17, 2024 03:00 PM AMBULATORY - MEDICINE [place] C [place] [facility] Jan 26, 2024 09:30 AM AMBULATORY - MEDICINE [place] C [place] [facility] Feb 03, 2024 03:00 PM AMBULATORY - MEDICINE [place] C [place] [facility] Feb 14, 2024 11:00 AM AMBULATORY - PSYCHIATRY [place] [facility] [place] [facility] Mar 06, 2024 09:00 AM AMBULATORY - MEDICINE [place] C [place] [facility] Social History: Smoking Status (Most [...] 2023 11:00 AM VA-TOBACCO FORMER USER [facility] Tobacco Use History This section includes a history of the smoking, or tobacco-related health factors, that were collected on or before the date of the Encounter. The data comes from the [place] facility where the Encounter took place. Date/Time Smoking Status/Tobac co Use Comment Facility Mar 31, 2023 11:00 AM VA-TOBACCO QUIT 1 TO < 5 YRS [place] [facility]TR [place] [facility] Mar 25, 2022 10:30 AM VA-TOBACCO NEVER USED [place] [facility]TR [place] [facility] Mar 19, 2021 02:00 PM VA-TOBACCO FORMER USER [place] [facility]TR [place] [facility] Mar 19, 2021 02:00 PM VA-TOBACCO QUIT < 1 YEAR [facility] [place] [facility] Sep 20, 2018 11:24 AM VA-TOBACCO USE DECLINED TO ANSWER [place] [facility]TR [place] [facility] Oct 21, 2017 08:13 AM QUIT TOBACCO USE IN PAST YEAR [place] [facility]TR [place] [facility] Dec 30, 2016 08:28 AM QUIT TOBACCO USE 1-7 YEARS AGO [place] [facility]TR [place] [facility] Jun 04, 2016 08:43 AM QUIT TOBACCO USE 1-7 YEARS AGO [place] [facility] May 17, 2015 08:45 AM QUIT TOBACCO USE 1-7 YEARS AGO quit 2 years ago. [place] [facility] [facility] Jun 07, 2014 09:25 AM QUIT TOBACCO USE 1-7 YEARS AGO [place] [facility]TR [place] [facility] November 30, 2013 08:44 AM QUIT TOBACCO USE IN PAST YEAR [place] [facility]TR [place] [facility] May 22, 2013 10:10 AM QUIT TOBACCO USE IN PAST YEAR [place] [facility]TR [place] [facility] December 01, 2012 01:54 PM QUIT TOBACCO USE IN PAST YEAR [place] [facility]TR [place] [facility] Jun 07, 2012 08:16 AM V1-PT DECLINES TOBACCO CESSATION MEDS [place] [facility] Jun 07, 2012 08:16 AM V1-PT THINKING ABOUT QUIT TOBACCO USE [place] [facility] [place] [facility] Jan 05, 2012 09:00 AM CURRENT SMOKER intermittenly [facility] [place] [facility] Jan 05, 2012 09:00 AM V1-PT DECLINES REF TO TOBACCO CESS PRGM [place] [facility] [place] [facility] Jan 05, 2012 09:00 AM V1-PT DECLINES TOBACCO CESSATION MEDS [place] [facility] [place] [facility] Jan 05, 2012 09:00 AM V1-PT THINKING ABOUT QUIT TOBACCO USE [place] [facility] [place] [facility] Feb 17, 2011 09:52 AM V1-PT DECLINES TOBACCO [facility]ESSATION MED[facility] [place] [facility] Feb 17, 2011 09:52 AM V1-PT THINKING ABOUT QUIT TOBACCO USE [place] CNTR [place] [facility] Aug 13, 2010 11:31 AM QUIT TOBACCO USE IN PAST YEAR [facility] [place] [facility] Feb 19, 2010 01:26 PM QUIT TOBACCO USE IN PAST YEAR [place] [facility]TR [place] [facility] Sep 13, 2009 11:04 AM QUIT TOBACCO USE IN PAST YEAR [facility] [place] [facility] Feb 05, 2009 08:29 AM V1-PT DECLINES REF TO TOBACCO CESS PRGM [facility] [place] [facility] Feb 05, 2009 08:29 AM V1-PT DECLINES TOBACCO CESSATION MEDS [facility] Feb 05, 2009 08:29 AM V1-PT THINKING ABOUT QUIT TOBACCO USE [place] CNTR [place] [facility] Aug 22, 2008 09:04 AM QUIT TOBACCO USE IN PAST YEAR PR CNTR [place] [facility] Mar 12, 2008 10:40 AM V1-PT DECLINES REF TO TOBACCO CESS PRGM [place] CNTR [place] [facility] Mar 12, 2008 10:40 AM V1-PT DECLINES TOBACCO CESSATION MEDS [place] CNTR [place] [facility] Mar 12, 2008 10:40 AM V1-PT NOT INTERESTED IN QUIT TOBACCO USE [place] CNTR [place] [facility] Mar 08, 2008 09:37 AM CURRENT SMOKER smokes one pack a day for about 10 years ago. [facility] Encounter Notes: All associated encounter [...] ADDENDUM STATUS: COMPLETED RC to Vet and customs entry writer asked Vet if she had a vehicle and she stated no. She is waiting for the insurance to make a determination. She will call us back once she has a vehicle. Vet asked this customs entry writer if this is something [place] will cover and customs entry writer let Vet know that she was unsure. /divya/ Fabiola Hooker RN Primary Care Staff Nurse Signed: 09/10/2023 13:12 JULIANNA GARNER [facility]
--- OUTSIDE RECORDS SUMMARY | 2024-07-25 11:34 | XMS_ITS | Encounter Summary ---
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 Organization [place] Address [address] [place] [address] Care Team Providers Care Research Program Coordinator Name Role Phone ROMANA CASTILLO Primary [...] Garcia [facility] (MEDICAID) MEDICAID [facility] May 14, 2009 [id number] SAMPLE,ROCCO MOORE PATIENT [facility] MEDICAID [facility] HUMAN [facility] May 14, 2009 [id number] SAMPLE,ROCCO MOORE PATIENT MEDICAID MEDICAID [facility] [place] Jul 26, 2018 MEDICAI D [id number] SAMPLE,ROCCO MOORE PATIENT MEDICARE (WNR) MEDICARE (M) PART A November 24, 2015 PART A [id number] SAMPLE,ROCCO MOORE PATIENT MEDICARE (WNR) MEDICARE (M) PART B November 24, 2015 PART B [id number] ROCCO QUEZADA PATIENT Selected Encounter This [...] - MEDICINE [place] [facility] Sep 08, 2023 01:30 PM AMBULATORY - MEDICINE [place] [facility] Oct 06, 2023 09:00 AM AMBULATORY - MEDICINE [place] [facility] Oct 07, 2023 01:00 PM AMBULATORY - PSYCHIATRY [place] [facility] Oct 25, 2023 11:00 AM AMBULATORY - MEDICINE [place] [facility] Nov 09, 2023 09:00 AM AMBULATORY - MEDICINE [place] [facility] Nov 17, 2023 09:30 AM AMBULATORY - MEDICINE [place] [facility] Jan 03, 2024 11:00 AM AMBULATORY - PSYCHIATRY [place] [facility] [place] [facility] Jan 17, 2024 03:00 PM AMBULATORY - MEDICINE [place] [facility] Jan 26, 2024 09:30 AM AMBULATORY - MEDICINE [place] [facility] Feb 03, 2024 03:00 PM AMBULATORY - MEDICINE [place] [facility] Feb 14, 2024 11:00 AM AMBULATORY - PSYCHIATRY [place] [facility] [place] [facility] Mar 06, 2024 09:00 AM AMBULATORY - MEDICINE [place] [facility] Social History: Smoking Status (Most current) [...] AM VA-TOBACCO [facility] [place] [facility] Tobacco Use History This section includes a history of the smoking, or tobacco-related health factors, that were collected on or before the date of the Encounter. The data comes from the [place] facility where the Encounter took place. Date/Time Smoking Status/Tobac co Use Comment Facility Mar 31, 2023 11:00 AM VA-TOBACCO QUIT 1 TO < 5 YRS [place] [facility] [facility] Mar 25, 2022 10:30 AM VA-TOBACCO NEVER USED [place] [facility] [facility] Mar 19, 2021 02:00 PM VA-TOBACCO FORMER USER [place] [facility] [place] [facility] Mar 19, 2021 02:00 PM VA-TOBACCO QUIT < 1 YEAR [place] [facility] [place] [facility] Sep 20, 2018 11:24 AM VA-TOBACCO USE DECLINED TO ANSWER [place] [facility] [facility] Oct 21, 2017 08:13 AM QUIT TOBACCO USE IN PAST YEAR [place] [facility] [place] [facility] Dec 30, 2016 08:28 AM QUIT TOBACCO USE 1-7 YEARS AGO [place] [facility] [place] [facility] Jun 04, 2016 08:43 AM QUIT TOBACCO USE 1-7 YEARS AGO [place] [facility] [place] [facility] May 17, 2015 08:45 AM QUIT TOBACCO USE 1-7 YEARS AGO quit 2 years ago. [place] [facility] [place] [facility] Jun 07, 2014 09:25 AM QUIT TOBACCO USE 1-7 YEARS AGO [place] [facility] [place] [facility] November 30, 2013 08:44 AM QUIT TOBACCO USE IN PAST YEAR [place] [facility] [place] [facility] May 22, 2013 10:10 AM QUIT TOBACCO USE IN PAST YEAR [place] [facility] [place] [facility] December 01, 2012 01:54 PM QUIT TOBACCO USE IN PAST YEAR [place] [facility] [place] [facility] Jun 07, 2012 08:16 AM V1-PT DECLINES TOBACCO CESSATION MEDS [place] [facility] [place] [facility] Jun 07, 2012 08:16 AM V1-PT THINKING ABOUT QUIT TOBACCO USE [place] [facility] [place] [facility] Jan 05, 2012 09:00 AM CURRENT SMOKER intermittenly [place] [facility] [place] [facility] Jan 05, 2012 09:00 AM V1-PT DECLINES REF TO TOBACCO CESS PRGM [place] [facility] [place] [facility] Jan 05, 2012 09:00 AM V1-PT DECLINES TOBACCO CESSATION MEDS [place] [facility] [place] [facility] Jan 05, 2012 09:00 AM V1-PT THINKING ABOUT QUIT TOBACCO USE [place] [facility] [place] [facility] Feb 17, 2011 09:52 AM V1-PT DECLINES TOBACCO CESSATION MEDS [place] [facility] [place] [facility] Feb 17, 2011 09:52 AM V1-PT THINKING ABOUT QUIT TOBACCO USE [place] [facility] [place] [facility] Aug 13, 2010 11:31 AM QUIT TOBACCO USE IN PAST YEAR [place] [facility] [place] [facility] Feb 19, 2010 01:26 PM QUIT TOBACCO USE IN PAST YEAR [place] [facility] [place] [facility] Sep 13, 2009 11:04 AM QUIT TOBACCO USE IN PAST YEAR [place] [facility] [place] [facility] Feb 05, 2009 08:29 AM V1-PT DECLINES REF TO TOBACCO CESS PRGM [facility] [place] [facility] Feb 05, 2009 08:29 AM V1-PT DECLINES TOBACCO CESSATION MEDS [place] [facility] [place] [facility] Feb 05, 2009 08:29 AM V1-PT THINKING ABOUT QUIT TOBACCO USE [place] [facility] [place] [facility] Aug 22, 2008 09:04 AM QUIT TOBACCO USE IN PAST YEAR [place] [facility] [place] [facility] Mar 12, 2008 10:40 AM V1-PT DECLINES REF TO TOBACCO CESS PRGM [facility] [place] [facility] Mar 12, 2008 10:40 AM V1-PT DECLINES TOBACCO CESSATION MEDS [place] [facility] [place] [facility] Mar 12, 2008 10:40 AM [...] 2023 12:00 AM NONVA NOTE: LOCAL TITLE: NON-[facility] STANDARD TITLE: NONVA NOTE DATE OF NOTE: SEP 07, 2023 ENTRY DATE: SEP 17, 2023@12:45:22 AUTHOR: DEIDRE ADLER EXP COSIGNER: URGENCY: STATUS: COMPLETED VistA Imaging - Scanned Document SCANNED DOCUMENT SIGNATURE NOT REQUIRED Electronically Filed: 09/17/2023 by: DEIDRE ADLER MEDICAL RACE RELATIONS ADVISER DEIDRE ADLER [facility]
--- OUTSIDE RECORDS SUMMARY | 2024-07-25 11:34 | XMS_ITS | Encounter Summary ---
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 Organization [place] Address [address] [place] [id number] Care Team Providers Care Retail Field Supervisor Name Role Phone ROMANA CASTILLO Primary [...] [facility] (MEDICAID) [facility] May 14, 2009 [id number] SAMPLE,ROCCO MOORE PATIENT [facility] MEDICAID [facility] HUMAN [facility] May 14, 2009 [id number] SAMPLE,ROCCO MOORE PATIENT MEDICAID MEDICAID [facility] [place] Jul 26, 2018 MEDICAI D [id number] SAMPLE,ROCCO MOORE PATIENT MEDICARE (WNR) MEDICARE (M) PART A November 24, 2015 PART A [id number] SAMPLE,ROCCO MOORE PATIENT MEDICARE (WNR) MEDICARE (M) PART B November 24, 2015 PART B [id number] ROCCO QUEZADA PATIENT Selected Encounter This [...] - MEDICINE CT C NTRL [place] [facility] Oct 07, 2023 01:00 PM AMBULATORY - PSYCHIATRY CT CNTRL [place] [facility] Oct 25, 2023 11:00 AM AMBULATORY - MEDICINE CT C NTRL [place] [facility] Nov 09, 2023 09:00 AM AMBULATORY - MEDICINE CT C NTRL [place] [facility] Nov 17, 2023 09:30 AM AMBULATORY - MEDICINE CT C NTRL [place] [facility] Jan 03, 2024 11:00 AM AMBULATORY - PSYCHIATRY CT CNTRL [place] [facility] Jan 17, 2024 03:00 PM AMBULATORY - MEDICINE CT C NTRL [place] [facility] Jan 26, 2024 09:30 AM AMBULATORY - MEDICINE CT C NTRL [place] [facility] Feb 03, 2024 03:00 PM AMBULATORY - MEDICINE CT C NTRL [place] [facility] Feb 14, 2024 11:00 AM AMBULATORY - PSYCHIATRY CT CNTRL [place] [facility] Mar 06, 2024 09:00 AM AMBULATORY - MEDICINE CT C NTRL [place] [facility] Social History: Smoking Status (Most current) [...] 11:00 AM VA-TOBACCO [facility] Tobacco Use History This section includes a history of the smoking, or tobacco-related health factors, that were collected on or before the date of the Encounter. The data comes from the [place] facility where the Encounter took place. Date/Time Smoking Status/Tobac co Use Comment Facility Mar 31, 2023 11:00 AM VA-TOBACCO QUIT 1 TO < 5 YRS [facility] [place] [facility] Mar 25, 2022 10:30 AM VA-TOBACCO NEVER USED [facility] [place] [facility] Mar 19, 2021 02:00 PM VA-TOBACCO FORMER USER [facility] [place] [facility] Mar 19, 2021 02:00 PM VA-TOBACCO QUIT < 1 YE[facility] Sep 20, 2018 11:24 AM VA-TOBACCO USE [facility]CLINED TO [facility]SW[facility] [place] [facility] Oct 21, 2017 08:13 AM QUIT TOBACCO USE IN PAST YEAR [facility] [place] [facility] Dec 30, 2016 08:28 AM QUIT TOBACCO USE 1-7 YEARS AGO [facility] [place] [place] [facility] Jun 04, 2016 08:43 AM QUIT TOBACCO USE 1-7 YEARS AGO [facility] [place] [place] [facility] May 17, 2015 08:45 AM QUIT TOBACCO USE 1-7 YEARS AGO quit 2 years ago. [facility] [place] [place] [facility] Jun 07, 2014 09:25 AM QUIT TOBACCO USE 1-[address] CNT [place] [facility] November 30, 2013 08:44 AM QUIT TOBACCO USE IN PAST YEAR [facility] [place] [facility] May 22, 2013 10:10 AM QUIT TOBACCO USE IN PAST YEAR [facility] [place] [facility] December 01, 2012 01:54 PM QUIT TOBACCO USE IN PAST YEAR [facility] [place] [place] [facility] Jun 07, 2012 08:16 AM V1-PT DECLINES TOBACCO CESSATION MEDS [facility] WSN [facility] Jun 07, 2012 08:16 AM V1-PT THINKING ABOUT QUIT TOBACCO [facility] [place] [facility] Jan 05, 2012 09:00 AM CURRENT SMOKER intermittenly CT CNTR [place] [facility] Jan 05, 2012 09:00 AM V1-PT DECLINES REF TO TOBACCO CESS PRGM CT CNTR [place] [facility] Jan 05, 2012 09:00 AM V1-PT DECLINES TOBACCO CESSATION MEDS [facility] [place] [facility] Jan 05, 2012 09:00 AM V1-PT THINKING ABOUT QUIT TOBACCO USE CT CNTR [place] [facility] Feb 17, 2011 09:52 AM V1-PT DECLINES TOBACCO CESSATION MEDS [facility] [place] [facility] Feb 17, 2011 09:52 AM V1-PT THINKING ABOUT QUIT TOBACCO USE CT CNTR [place] [facility] Aug 13, 2010 11:31 AM QUIT TOBACCO USE IN PAST YEAR [facility] [place] [facility] Feb 19, 2010 01:26 PM QUIT TOBACCO USE IN PAST YEAR [facility] [place] [facility] Sep 13, 2009 11:04 AM QUIT TOBACCO USE IN PAST YEAR [facility] [place] [facility] Feb 05, 2009 08:29 AM V1-PT DECLINES REF TO TOBACCO CESS PRGM [facility] [place] [facility] Feb 05, 2009 08:29 AM V1-PT DECLINES TOBACCO CESSATION MEDS [facility] [place] [facility] Feb 05, 2009 08:29 AM V1-PT THINKING ABOUT QUIT TOBACCO USE [facility] [place] [facility] Aug 22, 2008 09:04 AM QUIT TOBACCO USE IN PAST YEAR CT CNTR [place] [facility] Mar 12, 2008 10:40 AM V1-PT DECLINES REF TO TOBACCO CESS PRGM CT CNTR [place] [facility] Mar 12, 2008 10:40 AM V1-PT DECLINES TOBACCO CESSATION MEDS CT CNTR [place] [facility] Mar 12, 2008 10:40 AM V1-PT NOT INTERESTED IN QUIT TOBACCO USE CT CNTR [place] [facility] Mar 08, 2008 09:37 AM CURRENT SMOKER smokes one pack a day for about 10 years ago. [facility] [place] [facility] Encounter Notes: All associated encounter notes This section contains the clinical notes associated to the Encounter. Date/Time Encounter Note(s) Provider Source Sep 10, 2023 12:00 PM NONVA NOTE: LOCAL TITLE: NON-[facility] STANDARD TITLE: NONVA NOTE DATE OF NOTE: SEP 10, 2023@12:00 ENTRY DATE: SEP 22, 2023@15:10:50 AUTHOR: NIKOLAS DALY COSIGNER: URGENCY: STATUS: COMPLETED VistA Imaging - Scanned Document SCANNED DOCUMENT SIGNATURE NOT REQUIRED Electronically Filed: 09/22/2023 by: MERCEDES DALY Civil Engineer Land Development MERCEDES DALY [facility]
--- OUTSIDE RECORDS SUMMARY | 2024-07-25 11:34 | XMS_ITS | Encounter Summary ---
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 ns Affairs [place] Organization Department of Veter[place] Address [address] [place] [id number] Care Team Providers Care Machine Egg Washer Name Role Phone ROMANA CASTILLO Primary [...] Garcia [facility] (MEDICAID) [facility]ICAID [facility] May 14, 2009 [id number] SAMPLE,ROCCO MOORE PATIENT [facility] MEDICAID [facility] HUMAN [facility] May 14, 2009 [id number] SAMPLE,ROCCO MOORE PATIENT MEDICAID MEDICAID [facility] [place] Jul 26, 2018 MEDICAI D [id number] SAMPLE,ROCCO MOORE PATIENT MEDICARE (WNR) MEDICARE (M) PART A November 24, 2015 PART A [id number] SAMPLE,ROCCO MOORE PATIENT MEDICARE (WNR) MEDICARE (M) PART B November 24, 2015 PART B [id number] ROCCO QUEZADA PATIENT Selected Encounter This [...] - MEDICINE [place] C [facility]L [place] [facility] Sep 08, 2023 01:30 PM AMBULATORY - MEDICINE ME C NTRL [place] [facility] Oct 06, 2023 09:00 AM AMBULATORY - MEDICINE ME C NTRL [place] [facility] Oct 07, 2023 01:00 PM AMBULATORY - PSYCHIATRY ME [facility]TRL [place] [facility] Oct 25, 2023 11:00 AM AMBULATORY - MEDICINE ME C NTRL [place] [facility] Nov 09, 2023 09:00 AM AMBULATORY - MEDICINE ME C NTRL [place] [facility] Nov 17, 2023 09:30 AM AMBULATORY - MEDICINE ME C NTRL [place] [facility] Jan 03, 2024 11:00 AM AMBULATORY - PSYCHIATRY ME [facility]L [place] [facility] Jan 17, 2024 03:00 PM AMBULATORY - MEDICINE ME C [facility]TRL [place] [facility] Jan 26, 2024 09:30 AM AMBULATORY - MEDICINE ME C NTRL [place] [facility] Feb 03, 2024 03:00 PM AMBULATORY - MEDICINE ME C NTRL [place] [facility] Feb 14, 2024 11:00 AM AMBULATORY - PSYCHIATRY ME [facility]L [place] [facility] Social History: Smoking Status (Most [...] 31, 2023 11:00 AM VA-TOBACCO FORMER USER [facility] Tobacco Use History This [...] < 5 YRS [facility]TR [place] [facility] Mar 25, 2022 10:30 AM VA-TOBACCO NEVER USED ME [facility]TRL [place] [facility] Mar 19, 2021 02:00 PM VA-TOBACCO FORMER USER ME CNTR [place] [facility] Mar 19, 2021 02:00 PM VA-TOBACCO QUIT < 1 YEAR [facility] [place] [facility] Sep 20, 2018 11:24 AM VA-TOBACCO USE DECLINED TO ANSWER ME CNTR [place] [facility] Oct 21, 2017 08:13 AM QUIT TOBACCO USE IN PAST YEAR ME CNTR [place] [facility] Dec 30, 2016 08:28 AM QUIT TOBACCO USE 1-7 YEARS AGO ME [facility]L [place] [facility] Jun 04, 2016 08:43 AM QUIT TOBACCO USE 1-7 YEARS AGO ME [facility]TR [place] [facility] May 17, 2015 08:45 AM QUIT TOBACCO USE 1-7 YEARS AGO quit 2 years ago. [facility]TR [place] [facility] Jun 07, 2014 09:25 AM QUIT TOBACCO USE 1-7 YEARS AGO [facility]TR [place] [facility] November 30, 2013 08:44 AM QUIT TOBACCO USE IN PAST YEAR ME [facility]TR [place] [facility] May 22, 2013 10:10 AM QUIT TOBACCO USE IN PAST YEAR ME [facility]TR [place] [facility] December 01, 2012 01:54 PM QUIT TOBACCO USE IN PAST YEAR [facility] [place] [facility] Jun 07, 2012 08:16 AM V1-PT DECLINES TOBACCO CESSATION MEDS [facility]TRL [place] [facility] Jun 07, 2012 08:16 AM V1-PT THINKING ABOUT QUIT TOBACCO USE [facility] [facility] Jan 05, 2012 09:00 AM CURRENT SMOKER intermittenly [facility]TR [place] [facility] Jan 05, 2012 09:00 AM V1-PT DECLINES REF TO TOBACCO CESS PRGM [facility] [place] [facility] Jan 05, 2012 09:00 AM V1-PT DECLINES TOBACCO CESSATION MEDS [facility] [place] [facility] Jan 05, 2012 09:00 AM V1-PT THINKING ABOUT QUIT TOBACCO USE [facility] [place] [facility] Feb 17, 2011 09:52 AM V1-PT DECLINES TOBACCO CESSATION MEDS [facility]TR [place] [facility] Feb 17, 2011 09:52 AM V1-PT THINKING ABOUT QUIT TOBACCO USE [facility] [place] [facility] Aug 13, 2010 11:31 AM QUIT TOBACCO USE IN PAST YEAR [facility] [place] [facility] Feb 19, 2010 01:26 PM QUIT TOBACCO USE IN PAST YEAR [facility] [facility] Sep 13, 2009 11:04 AM QUIT TOBACCO USE IN PAST YEAR [facility] [place] [facility] Feb 05, 2009 08:29 AM V1-PT DECLINES REF TO TOBACCO CESS PRGM [facility] [place] [facility] Feb 05, 2009 08:29 AM V1-PT DECLINES TOBACCO CESSATION MEDS [facility] [place] [facility] Feb 05, 2009 08:29 AM V1-PT THINKING ABOUT QUIT TOBACCO USE [facility] [facility] Aug 22, 2008 09:04 AM QUIT TOBACCO USE IN PAST YEAR ME [facility]TR [facility] [facility] Mar 12, 2008 10:40 AM V1-PT DECLINES REF TO TOBACCO CESS PRGM [facility] [facility] Mar 12, 2008 10:40 AM V1-PT DECLINES TOBACCO CESSATION MEDS [facility] [place] [facility] Mar 12, 2008 10:40 AM V1-PT NOT INTERESTED IN QUIT TOBACCO USE [facility] [place] [facility] Mar 08, 2008 09:37 AM CURRENT SMOKER smokes one pack a day for about 10 years ago. [facility] [place] [facility] Encounter Notes: All associated encounter notes This section contains the clinical notes associated to the Encounter. Date/Time Encounter Note(s) Provider Source Sep 02, 2023 12:00 PM NONVA NOTE: LOCAL TITLE: NON-[facility] STANDARD TITLE: NONVA NOTE DATE OF NOTE: SEP 02, 2023@12:00 ENTRY DATE: SEP 17, 2023@16:17:31 AUTHOR: GAVIN ESTRELLA EXP VANESSAIGNER: URGENCY: STATUS: COMPLETED NON-[facility] Has ADDENDA VistA Imaging - Scanned Document SCANNED DOCUMENT SIGNATURE NOT REQUIRED Electronically Filed: 09/17/2023 by: GAVIN ESTRELLA 09/27/2023 ADDENDUM STATUS: COMPLETED This plan of care was removed and replaced with a signed copy. /divya/ MORRO HUMPHREY VISUAL MERCHANDISING DIRECTOR Signed: 09/27/2023 14:02 GAVIN ESTRELLA [facility]TR [facility] [facility] Sep 02, 2023 12:00 PM NONVA NOTE: LOCAL TITLE: NON-[facility] STANDARD TITLE: NONVA NOTE DATE OF NOTE: SEP 02, 2023@12:00 ENTRY DATE: SEP 29, 2023@05:30:39 AUTHOR: GAVIN ESTRELLAIGNER: URGENCY: STATUS: COMPLETED VistA Imaging - Scanned Document SCANNED DOCUMENT SIGNATURE NOT REQUIRED Electronically Filed: 09/29/2023 by: GAVIN WILLIS [facility]
--- OUTSIDE RECORDS SUMMARY | 2024-07-25 11:34 | XMS_ITS | Encounter Summary ---
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 Organization [place] Address [address] [place] [address] Care Team Providers Care Airport Operations Coordinator [...] Name Patient's Relationship to Policy Garcia [facility] (MEDICAID) MEDICAID [facility] May 14, 2009 [id number] SAMPLE,ROCCO MOORE PATIENT [facility] MEDICAID [facility] May 14, 2009 [id number] SAMPLE,ROCCO MOORE PATIENT MEDICAID MEDICAID [facility] [place] Jul 26, 2018 MEDICAI D [id number] SAMPLE,ROCCO MOORE PATIENT MEDICARE (WNR) MEDICARE (M) PART A November 24, 2015 PART A [id number] SAMPLE,ROCCO MOORE PATIENT MEDICARE (WNR) MEDICARE (M) PART B November 24, 2015 PART B [id number] [phone] SAMPLE,ROCCO MOORE PATIENT Selected Encounter This section includes the information on record at NH for the Encounter. Date/Time Encounter Type Encounter Description Reason Provider Source Oct 07, 2023 01:00 PM OFFICE O/P EST LOW 20 [facility] - [facility] ICD-10-CM F41.9 Anxiety disorder, unspecified BAYRON SCOTT MD [facility] Encounter Template Text not used by NH Assessments - Encounter Diagnoses This section includes the primary and secondary diagnoses documented for the Encounter. Date/Time Primary/Secondary Diagnosis Diagnosis Name Provider Source Oct 07, 2023 01:22 PM PRIMARY Anxiety disorder, unspecified BAYRON SCOTT MD [place] [facility] [facility] Oct 07, 2023 01:22 PM SECONDARY Insomnia, unspecified BAYRON SCOTT MD [facility] [facility] Plan of Treatment: Future Appointments (+ 6 months) and Future Tests (+/- 45 days) The Plan of Treatment section includes future care activities for the patient from all [place] treatmentfagenesis hospital. This section includes future appointments and [...] - MEDICINE [place] C [facility]TRL [place] [facility] Nov 09, 2023 09:00 AM AMBULATORY - MEDICINE NH C [facility]TRL [place] [facility] Nov 17, 2023 09:30 AM AMBULATORY - MEDICINE NH C [facility]TRL [place] [facility] Jan 03, 2024 11:00 AM AMBULATORY - PSYCHIATRY [facility] [facility] Jan 17, 2024 03:00 PM AMBULATORY - MEDICINE NH C NTRL [facility] [facility] Jan 26, 2024 09:30 AM AMBULATORY - MEDICINE NH C [facility]TRL [facility] [facility] Feb 03, 2024 03:00 PM AMBULATORY - MEDICINE NH C [facility]L [facility] [facility] Feb 14, 2024 11:00 AM AMBULATORY - PSYCHIATRY [facility] [facility] Mar 06, 2024 09:00 AM AMBULATORY - MEDICINE [facility] C [facility]L [facility] [facility] Apr 03, 2024 11:30 AM AMBULATORY - MEDICINE [facility] [place] [facility] Social History: Smoking Status (Most current) and [...] AM VA-TOBACCO [facility] Tobacco Use History This section includes a history of the smoking, or tobacco-related health factors, that were collected on or before the date of the Encounter. The data comes from the [place] facility where the Encounter took place. Date/Time Smoking Status/Tobac co Use Comment Facility Mar 31, 2023 11:00 AM VA-TOBACCO QUIT 1 TO < 5 YRS [facility] [place] [facility] Mar 25, 2022 10:30 AM VA-TOBACCO NEVER USED [facility] [facility] Mar 19, 2021 02:00 PM VA-TOBACCO FORMER USER [facility] [facility] Mar 19, 2021 02:00 PM VA-TOBACCO QUIT < 1 YEAR [facility] [facility] Sep 20, 2018 11:24 AM VA-TOBACCO USE DECLINED TO ANSWER NH [facility] [facility] Oct 21, 2017 08:13 AM QUIT TOBACCO USE IN PAST YEAR NH [facility] [place] [facility] Dec 30, 2016 08:28 AM QUIT TOBACCO USE 1-7 YEARS AGO [facility] [place] [facility] Jun 04, 2016 08:43 AM QUIT TOBACCO USE 1-7 YEARS AGO [facility] [place] [facility] May 17, 2015 08:45 AM QUIT TOBACCO USE 1-7 YEARS AGO quit 2 years ago. [facility] [place] [facility] Jun 07, 2014 09:25 AM QUIT TOBACCO USE 1-7 YEARS AGO [facility] [place] [facility] November 30, 2013 08:44 AM QUIT TOBACCO USE IN PAST YEAR [facility] [place] [facility] May 22, 2013 10:10 AM QUIT TOBACCO USE IN PAST YEAR [facility] [facility] December 01, 2012 01:54 PM QUIT TOBACCO USE IN PAST YEAR [facility] [place] [facility] Jun 07, 2012 08:16 AM V1-PT DECLINES TOBACCO CESSATION MEDS [facility] [place] [facility] Jun 07, 2012 08:16 AM V1-PT THINKING ABOUT QUIT TOBACCO USE [facility] [place] [facility] Jan 05, 2012 09:00 AM CURRENT SMOKER intermittenly [facility] [place] [facility] Jan 05, 2012 09:00 AM V1-PT DECLINES REF TO TOBACCO CESS PRGM [facility] [place] [facility] Jan 05, 2012 09:00 AM V1-PT DECLINES TOBACCO CESSATION MEDS [facility] [place] [facility] Jan 05, 2012 09:00 AM V1-PT THINKING ABOUT QUIT TOBACCO USE [facility] [place] [facility] Feb 17, 2011 09:52 AM V1-PT DECLINES TOBACCO CESSATION MEDS [facility] [place] [facility] Feb 17, 2011 09:52 AM V1-PT THINKING ABOUT QUIT TOBACCO USE [facility] [place] [facility] Aug 13, 2010 11:31 AM QUIT TOBACCO USE IN PAST YEAR [facility]TR [facility] [place] [facility] Feb 19, 2010 01:26 PM QUIT TOBACCO USE [facility]ST YE[facility] [place] [facility] Sep 13, 2009 11:04 AM QUIT TOBACCO USE IN PAST YEAR [facility] [place] [facility] Feb 05, 2009 08:29 AM V1-PT DECLINES REF TO TOBACCO CESS PRGM [facility] [facility] Feb 05, 2009 08:29 AM V1-PT DECLINES TOBACCO CESSATION MEDS [facility] [place] [facility] Feb 05, 2009 08:29 AM V1-PT THINKING ABOUT QUIT TOBACCO USE [facility] [place] [facility] Aug 22, 2008 09:04 AM QUIT TOBACCO USE IN PAST YEAR NH [facility]TR [facility] [place] [facility] Mar 12, 2008 10:40 AM V1-PT DECLINES REF TO TOBACCO CESS [facility] Mar 12, 2008 10:40 AM V1-PT [...] review controlled substances prescribed outside of the NH, and any additional information that may become available, as an important component of standard clinical care, and in accordance with [facility] policy. Patient information was shared with the PDMP [place] [place]. No prescription(s) for controlled substances outside the NH were found in the last 90 days. /divya/ MATEO SCOTT JR, MD STAFF PSYCHIATRIST Signed: 10/07/2023 13:21 MATEO SCOTT MD [facility] Oct 07, 2023 07:56 AM PSYCHIATRY [...] DIPHTHERIA TOXOID 0.5ML INTRAMUSCULARLY NOW 6) Non-VA [id number]/VILANTERO L25MCG 30D INH 1 INHALATION BY MOUTH ONCE DAILY REID QUEZADA is a 63 yo, female who was [facility] as an visit for 20 minutes for medication management. Two identifiers were used. CC: I'm going through pain clinic with Dr. Solorio (for her buprenorphine). I'm doing fine. Umair was getting the clonazepam and temazepam from her composite engineer and he retired. Umair states she has been on the same dose of clonazepam an temazepam for 4.5 years. Clonazepam recommended by her composite engineer and stated the clonazepam. No alcohol or [...] given including that benzodiazepines are not indicted [facility] and that there is a possible interaction [...] PSYCHIATRIST Signed: 10/07/2023 13:23 MATEO SCOTT MD [facility] [place] [facility] Sep 21, 2023 01:56 PM ACCOUNTING OF [...] standard clinical care, and in accordance with [facility] policy. Patient information was shared with the [place]. [facility] in [facility] days are noted. However, they do not raise significant safety concerns and do not influence the treatment plan at this time. Hydromorphone /es/ MATEO SCOTT JR, MD STAFF PSYCHIATRIST Signed: 09/21/2023 13:57 MATEO SCOTT MD [facility]
--- OUTSIDE RECORDS SUMMARY | 2024-07-25 11:34 | XMS_ITS | Encounter Summary ---
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 Address [address] [place] [id number] Care Team Providers Care Patient Insurance Clerk Name Role Phone ROMANA CASTILLO Primary [...] [facility] (MEDICAID) MEDICAID [facility] [employer] [employer] [facility] [facility] May 14, 2009 [id number] SAMPLE,ROCCO MOORE PATIENT [facility] MEDICAID [facility] May 14, 2009 [id number] SAMPLE,ROCCO MOORE PATIENT MEDICAID MEDICAID [facility] [place] Jul 26, 2018 MEDICAI D [id number] SAMPLE,ROCCO MOORE PATIENT MEDICARE (WNR) MEDICARE (M) PART A November 24, 2015 PART A [id number] SAMPLE,ROCCO MOORE PATIENT MEDICARE (WNR) MEDICARE (M) PART B November 24, 2015 PART B [id number] ROCCO QUEZADA PATIENT Selected Encounter This [...] 08, 2023 01:00 PM AMBULATORY - MEDICINE [place] [facility] [place] [facility] Sep 08, 2023 01:30 PM AMBULATORY - MEDICINE [place] [facility] [place] [facility] Oct 06, 2023 09:00 AM AMBULATORY - MEDICINE [place] [facility] [place] [facility] Oct 07, 2023 01:00 PM AMBULATORY - PSYCHIATRY [place] [facility] [place] [facility] Oct 25, 2023 11:00 AM AMBULATORY - MEDICINE [place] [facility] [facility] Nov 09, 2023 09:00 AM AMBULATORY - MEDICINE [place] [facility] [place] [facility] Nov 17, 2023 09:30 AM AMBULATORY - MEDICINE [place] [facility] [facility] Jan 03, 2024 11:00 AM AMBULATORY - PSYCHIATRY [place] [facility] [facility] Jan 17, 2024 03:00 PM AMBULATORY - MEDICINE [place] [facility] [facility] Jan 26, 2024 09:30 AM AMBULATORY - MEDICINE [place] [facility] [place] [facility] Feb 03, 2024 03:00 PM AMBULATORY - MEDICINE [place] [facility] [facility] Feb 14, 2024 11:00 AM AMBULATORY - PSYCHIATRY [place] [facility] [facility] Social History: Smoking Status [...] AM VA-TOBACCO FORMER USER [facility] Tobacco Use History This section includes a history of the smoking, or tobacco-related health factors, that were collected on or before the date of the Encounter. The data comes from the [place] facility where the Encounter took place. Date/Time Smoking Status/Tobac co Use Comment Facility Mar 31, 2023 11:00 AM VA-TOBACCO QUIT 1 TO < 5 YRS [place] [facility] [place] [facility] Mar 25, 2022 10:30 AM VA-TOBACCO NEVER USED [place] [facility] [place] [facility] Mar 19, 2021 02:00 PM VA-TOBACCO FORMER USER [place] [facility] [place] [facility] Mar 19, 2021 02:00 PM VA-TOBACCO QUIT < 1 [facility] [place] [facility] Sep 20, 2018 11:24 AM VA-TOBACCO USE DECLINED TO ANSWER [place] [facility] [place] [facility] Oct 21, 2017 08:13 AM QUIT TOBACCO USE IN PAST YEAR [place] [facility] [place] [facility] Dec 30, 2016 08:28 AM QUIT TOBACCO USE 1-7 YEARS AGO [place] [facility] [facility] Jun 04, 2016 08:43 AM QUIT TOBACCO USE 1-7 YEARS AGO [place] [facility] [place] [facility] May 17, 2015 08:45 AM QUIT TOBACCO USE 1-7 YEARS AGO quit 2 years ago. [place] [facility] [place] [facility] Jun 07, 2014 09:25 AM QUIT TOBACCO USE 1-7 YEARS AGO [place] [facility] [place] [facility] November 30, 2013 08:44 AM QUIT TOBACCO USE IN PAST YEAR [place] [facility] [place] [facility] May 22, 2013 10:10 AM QUIT TOBACCO USE IN PAST YEAR [place] [facility] [place] [facility] December 01, 2012 01:54 PM QUIT TOBACCO USE [facility]ST YE[facility] [place] [facility] Jun 07, 2012 08:16 AM V1-PT DECLINES TOBACCO CESSATION MEDS [place] [facility] [place] [facility] Jun 07, 2012 08:16 AM V1-PT THINKING ABOUT QUIT TOBACCO USE [place] [facility] [place] [facility] Jan 05, 2012 09:00 AM CURRENT SMOKER intermittenly VA [facility] [place] [facility] Jan 05, 2012 09:00 AM V1-PT DECLINES REF TO TOBACCO CESS PRGM [facility] [place] [facility] Jan 05, 2012 09:00 AM V1-PT DECLINES TOBACCO CESSATION MEDS [facility] [facility] Jan 05, 2012 09:00 AM V1-PT THINKING ABOUT QUIT TOBACCO USE VA [facility] [facility] Feb 17, 2011 09:52 AM V1-PT DECLINES TOBACCO CESSATION MEDS [place] [facility] [facility] Feb 17, 2011 09:52 AM V1-PT THINKING ABOUT QUIT [facility] [place] [facility] Aug 13, 2010 11:31 AM QUIT TOBACCO USE IN PAST YEAR [facility] [place] [facility] Feb 19, 2010 01:26 PM QUIT TOBACCO USE IN PAST YEAR [facility] [place] [facility] Sep 13, 2009 11:04 AM QUIT TOBACCO USE IN PAST YEAR [facility] [place] [facility] Feb 05, 2009 08:29 AM V1-PT DECLINES REF TO TOBACCO CESS PRGM [facility] [place] [facility] Feb 05, 2009 08:29 AM V1-PT DECLINES TOBACCO CESSATION MEDS [facility] [place] [facility] Feb 05, 2009 08:29 AM V1-PT THINKING ABOUT QUIT TOBACCO USE [place] [facility] [facility] Aug 22, 2008 09:04 AM QUIT TOBACCO USE IN PAST YEAR [place] [facility]TR [facility] [place] [facility] Mar 12, 2008 10:40 AM V1-PT DECLINES REF TO TOBACCO CESS PRGM [facility] [facility] Mar 12, 2008 10:40 AM V1-PT DECLINES TOBACCO CESSATION MEDS [facility] [place] [facility] Mar 12, 2008 10:40 AM V1-PT NOT INTERESTED IN QUIT TOBACCO USE [facility] [place] [facility] Mar 08, 2008 09:37 AM CURRENT SMOKER smokes one pack a day for about 10 years ago. [facility] Encounter Notes: All associated encounter [...] REQUIRED Electronically Filed: 09/17/2023 by: GAVIN WILLIS [facility]
--- OUTSIDE RECORDS SUMMARY | 2024-07-25 11:34 | XMS_ITS | Encounter Summary ---
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 Address [address] [place] [id number] Care Team Providers Care City Surveyor Name Role Phone ROMANA CASTILLO Primary [...] Policy Garcia [facility] (MEDICAID) [facility] May 14, 2009 [id number] SAMPLE,ROCCO MOORE PATIENT [facility] MEDICAID [facility] May 14, 2009 [id number] SAMPLE,ROCCO MOORE PATIENT MEDICAID MEDICAID [facility] [place] Jul 26, 2018 MEDICAI D [id number] SAMPLE,ROCCO MOORE PATIENT MEDICARE (WNR) MEDICARE (M) PART A November 24, 2015 PART A [id number] SAMPLE,ROCCO MOORE PATIENT MEDICARE (WNR) MEDICARE (M) PART B November 24, 2015 PART B [id number] ROCCO QUEZADA PATIENT Selected Encounter This [...] - MEDICINE [place] C [facility] [facility] Oct 07, 2023 01:00 PM AMBULATORY - PSYCHIATRY [place] [facility] [place] [facility] Oct 25, 2023 11:00 AM AMBULATORY - MEDICINE [place] C [facility] [place] [facility] Nov 09, 2023 09:00 AM AMBULATORY - MEDICINE [place] C [facility] [place] [facility] Nov 17, 2023 09:30 AM AMBULATORY - MEDICINE [place] C [facility] [place] [facility] Jan 03, 2024 11:00 AM AMBULATORY - PSYCHIATRY [place] [facility] [place] [facility] Jan 17, 2024 03:00 PM AMBULATORY - MEDICINE OR C [facility] [place] [facility] Jan 26, 2024 09:30 AM AMBULATORY - MEDICINE OR C [facility] [place] [facility] Feb 03, 2024 03:00 PM AMBULATORY - MEDICINE OR C [facility] [place] [facility] Feb 14, 2024 11:00 AM AMBULATORY - PSYCHIATRY [place] [facility] [place] [facility] Mar 06, 2024 09:00 AM AMBULATORY - MEDICINE OR C [facility] [place] [facility] Social History: Smoking Status (Most [...] FORMER USER [facility] Tobacco Use History This section includes a history of the smoking, or tobacco-related health factors, that were collected on or before the date of the Encounter. The data comes from the [place] facility where the Encounter took place. Date/Time Smoking Status/Tobac co Use Comment Facility Mar 31, 2023 11:00 AM VA-TOBACCO QUIT 1 TO < 5 YRS [place] [facility]TR [place] [facility] Mar 25, 2022 10:30 AM VA-TOBACCO NEVER USED [place] CNTR [facility] [facility] Mar 19, 2021 02:00 PM VA-TOBACCO FORMER USER [place] [facility]TR [place] [facility] Mar 19, 2021 02:00 PM VA-TOBACCO QUIT < 1 YE[facility] [place] [facility] Sep 20, 2018 11:24 AM VA-TOBACCO USE DECLINED TO [facility]SWER [facility] [place] [facility] Oct 21, 2017 08:13 AM QUIT TOBACCO USE IN PAST YEAR [place] [facility] [place] [facility] Dec 30, 2016 08:28 AM QUIT TOBACCO USE 1-7 YEARS AGO [place] CNTR [place] [facility] Jun 04, 2016 08:43 AM QUIT TOBACCO USE 1-7 YEARS AGO [place] [facility]TR [place] [facility] May 17, 2015 08:45 AM QUIT TOBACCO USE 1-7 YEARS AGO quit 2 years ago. [place] [facility]TR [facility] [facility] Jun 07, 2014 09:25 AM QUIT TOBACCO USE 1-7 YEARS AGO [place] [facility] [place] [facility] November 30, 2013 08:44 AM QUIT TOBACCO USE IN PAST YEAR [place] CNTR [place] [facility] May 22, 2013 10:10 AM QUIT TOBACCO USE IN PAST YEAR [place] [facility] [place] [facility] December 01, 2012 01:54 PM QUIT TOBACCO USE IN PAST YEAR [place] [facility]TR [facility] [facility] Jun 07, 2012 08:16 AM V1-PT DECLINES TOBACCO CESSATION MEDS [facility] Jun 07, 2012 08:16 AM V1-PT THINKING ABOUT QUIT TOBACCO USE [place] CNTR [facility] [facility] Jan 05, 2012 09:00 AM CURRENT SMOKER intermittenly [facility] [place] [facility] Jan 05, 2012 09:00 AM V1-PT DECLINES REF TO TOBACCO CESS PRGM [place] CNTR [facility] [facility] Jan 05, 2012 09:00 AM V1-PT DECLINES TOBACCO CESSATION MEDS [facility] [facility] Jan 05, 2012 09:00 AM V1-PT THINKING ABOUT QUIT TOBACCO USE OR CNTR [place] [facility] Feb 17, 2011 09:52 AM V1-PT DECLINES TOBACCO CESSATION MEDS [place] [facility] [place] [facility] Feb 17, 2011 09:52 AM V1-PT THINKING ABOUT QUIT TOBACCO USE OR CNTR [facility] [facility] Aug 13, 2010 11:31 AM QUIT TOBACCO USE IN PAST YEAR [facility] [place] [facility] Feb 19, 2010 01:26 PM QUIT TOBACCO USE IN PAST YE[facility] [place] [facility] Sep 13, 2009 11:04 AM QUIT TOBACCO USE IN PAST YEAR [place] CNTR [facility] [facility] Feb 05, 2009 08:29 AM V1-PT DECLINES REF TO TOBACCO CESS PR[facility] [place] [facility] Feb 05, 2009 08:29 AM V1-PT DECLINES TOBACCO CESSATION MEDS [facility] [place] [facility] Feb 05, 2009 08:29 AM V1-PT THINKING ABOUT QUIT TOBACCO USE [facility] [place] [facility] Aug 22, 2008 09:04 AM QUIT TOBACCO USE IN PAST YEAR [place] CNTR [facility] [facility] Mar 12, 2008 10:40 AM V1-PT DECLINES REF TO TOBACCO CESS PRGM [place] [facility]TR [place] [facility] Mar 12, 2008 10:40 AM V1-PT DECLINES TOBACCO CESSATION MEDS [place] [facility]TR [place] [facility] Mar 12, 2008 10:40 AM V1-PT NOT INTERESTED IN QUIT TOBACCO USE OR CNTR [facility] [facility] Mar 08, 2008 09:37 AM CURRENT SMOKER smokes one pack a day for about 10 years ago. [facility] Encounter Notes: All associated encounter [...] ADDENDA vet lm on pain clinic vm. senior copywriter called back and vet states she is going to run out of oxycodone this weekend. She is all set on her buprenorphine. 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 /divya/ aGl Solorio MD STAFF PHYSICIAN Signed: 09/22/2023 13:20 09/22/2023 ADDENDUM STATUS: COMPLETED senior copywriter called vet to notify her can orange picking supervisor refill on 09/24/2023 /isabella LOPEZ ADVANCED DESTINATION SIGN REPAIRER Signed: 09/22/2023 13:28 BEULAH LOPEZ [facility]
--- OUTSIDE RECORDS SUMMARY | 2024-07-25 11:34 | XMS_ITS ---
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 [place] [facility] [place] Organization [facility] [place] Address [address] [place] [address] Care Team Providers Care Adult Nurse Practitioner Name Role Phone ROMANA CASTILLO Primary Care [...] Garcia's Name Patient's Relationship to Policy Garcia [facility] (MEDICAID) [facility] May 14, 2009 [id number] SAMPLE,ROCCO MOORE PATIENT [facility]ID [facility] May 14, 2009 [id number] SAMPLE,ROCCO MOORE PATIENT MEDICAID MEDICAID [facility] Jul 26, 2018 MEDICAI D [id number] SAMPLE,ROCCO MOORE PATIENT MEDICARE (WNR) MEDICARE (M) PART A November 24, 2015 PART A [id number] [phone] SAMPLE,ROCCO MOORE PATIENT MEDICARE (WNR) MEDICARE (M) PART B November 24, 2015 PART B [id number] SAMPLE,ROCCO MOORE PATIENT Selected Encounter This section includes the information on record at PR for the Encounter. Date/Time Encounter Type Encounter Description Reason Provider Source Jan 17, 2024 03:00 PM OFFICE O/P EST LOW 20 MIN PRIMARY CARE/MEDICINE ICD-10-CM I10 Essential (primary) hypertension ROMANA CASTILLO IHE Encounter Template Text not used by PR Assessments - Encounter Diagnoses This section includes the primary and secondary diagnoses documented for the Encounter. Date/Time Primary/Secondary Diagnosis Diagnosis Name Provider Source Jan 17, 2024 03:34 PM PRIMARY Essential (primary) hypertension ROMANA CASTILLO [facility] [place] [facility] Jan 17, 2024 03:34 PM SECONDARY Other reduced mobility ROMANA CASTILLO [facility] [place] [facility] Plan of Treatment: Future Appointments (+ 6 months) and Future Tests (+/- 45 days) The Plan of Treatment section includes future care activities for the patient [facility] This section includes future appointments [...] - MEDICINE PR C [facility] [place] [facility] Feb 03, 2024 03:00 PM AMBULATORY - MEDICINE PR C [facility] [place] [facility] Feb 14, 2024 11:00 AM AMBULATORY - PSYCHIATRY [facility] [place] [facility] Mar 06, 2024 09:00 AM AMBULATORY - MEDICINE PR C [facility] [place] [facility] Apr 03, 2024 11:30 AM AMBULATORY - MEDICINE PR C [facility] [place] [facility] Apr 13, 2024 11:00 AM AMBULATORY - PSYCHIATRY [facility] [place] [facility] Apr 13, 2024 02:00 PM AMBULATORY - MEDICINE VA C [facility] [place] [facility] Apr 13, 2024 03:00 PM AMBULATORY - MEDICINE [facility] [place] [facility] May 02, 2024 11:00 AM [facility] May 15, 2024 11:30 AM [facility] May 25, 2024 11:30 AM AMBULATORY - MEDICINE [facility] Jul 13, 2024 10:00 AM [facility] Active, Pending, and Scheduled Orders This section includes a listing of several types of active, pending, and scheduled orders, including clinic medications orders, diagnostic test orders, procedure orders and consult orders; where the start date of the order is 45 days before the date of the Encounter or 45 days after the date of theEncounter. The data comes from all [facility] facilities. Test Date/Time Test Type Test Details Facility Name Jan 17, 2024 12:00 AM Laboratory - Chemistry Order BASIC METABOLIC PANEL (non-fasting) BLOOD (SST[facility]SERUM) [facility] Jan 17, 2024 12:00 AM Laboratory - Chemistry Order LIPID PANEL, NON FASTING BLOOD (SST-SERUM) [facility] Jan 17, 2024 12:00 AM Laboratory - Chemistry Order LIVER FUNCTION BLOOD (SST-SERUM) [facility] Jan 17, 2024 12:00 AM Laboratory - Chemistry Order TSH BLOOD (SST-SERUM) [facility] Jan 17, 2024 12:00 AM Laboratory - Chemistry Order MICROALBUMIN CREATININE RATIO PANEL URINE (RANDOM) [facility] Vital Signs: All taken on the encounter date This section contains inpatient and outpatient Vital Signs collected on the date of the Encounter. Date/Time Temperature Pulse Blood Pressure Respiratory Rate SP02 Pain Height Weight Body Mass Index Source Jan 17, 2024 03:15 PM 58 145/76 18 96 [facility] Social History: Smoking Status (Most current) [...] 31, 2023 11:00 AM VA-TOBACCO [facility] Tobacco Use History This section includes a history of the smoking, or tobacco-related health factors, that were collected on or before the date of the Encounter. The data comes from the PR facility where the Encounter took place. Date/Time Smoking Status/Tobac co Use Comment Facility Mar 31, 2023 11:00 AM VA-TOBACCO QUIT 1 TO < 5 YRS PR [facility] [place] [facility] Mar 25, 2022 10:30 AM VA-TOBACCO NEVER USED PR [facility]TR [facility] [place] [facility] Mar 19, 2021 02:00 PM VA-TOBACCO FORMER USER PR [facility]TR [facility] [place] [facility] Mar 19, 2021 02:00 PM VA-TOBACCO QUIT < 1 YEAR PR [facility] [place] [facility] Sep 20, 2018 11:24 AM VA-TOBACCO USE [facility]CLIN[facility] TO [facility]SW[facility] [place] [facility] Oct 21, 2017 08:13 AM QUIT TOBACCO USE IN PAST YEAR PR [facility]TR [facility] [place] [facility] Dec 30, 2016 08:28 AM QUIT TOBACCO USE 1-7 YEARS AGO PR CNT [facility] [place] [facility] Jun 04, 2016 08:43 AM QUIT TOBACCO USE 1-7 YEARS AGO PR [facility]TR [facility] [place] [facility] May 17, 2015 08:45 AM QUIT TOBACCO USE 1-7 YEARS AGO quit 2 years ago. [facility] [place] [facility] Jun 07, 2014 09:25 AM QUIT TOBACCO USE 1-7 YEARS AGO PR [facility]TR [facility] [place] [facility] November 30, 2013 08:44 AM QUIT TOBACCO USE IN PAST YEAR PR [facility]TR [facility] [place] [facility] May 22, 2013 10:10 AM QUIT TOBACCO USE IN PAST YEAR PR [facility] [place] [facility] December 01, 2012 01:54 PM QUIT TOBACCO USE IN PAST YEAR PR [facility] [place] [facility] Jun 07, 2012 08:16 AM V1-PT DECLINES TOBACCO CESSATION MEDS [facility] Jun 07, 2012 08:16 AM V1-PT THINKING ABOUT QUIT TOBACCO USE [facility] [place] [facility] Jan 05, 2012 09:00 AM CURRENT SMOKER intermittenly VA [facility]TR [facility] [place] [facility] Jan 05, 2012 09:00 AM V1-PT DECLINES REF TO TOBACCO CESS PRGM PR [facility] [place] [facility] Jan 05, 2012 09:00 AM V1-PT DECLINES TOBACCO CESSATION MEDS [facility] [place] [facility] Jan 05, 2012 09:00 AM V1-PT THINKING ABOUT QUIT TOBACCO USE VA [facility]TR [facility] [place] [facility] Feb 17, 2011 09:52 AM V1-PT DECLINES TOBACCO CESSATION MEDS [facility] [place] [facility] Feb 17, 2011 09:52 AM V1-PT THINKING ABOUT QUIT TOBACCO USE VA [facility] [place] [facility] Aug 13, 2010 11:31 AM QUIT TOBACCO USE IN PAST YEAR PR [facility]TR [facility] [place] [facility] Feb 19, 2010 01:26 PM QUIT TOBACCO USE IN PAST YEAR [facility] [place] [facility] Sep 13, 2009 11:04 AM QUIT TOBACCO USE IN PAST YEAR PR CNTR [facility] [place] [facility] Feb 05, 2009 08:29 AM V1-PT DECLINES REF TO TOBACCO CESS PRGM [facility] [place] [facility] Feb 05, 2009 08:29 AM V1-PT DECLINES TOBACCO CESSATION MEDS [facility] [place] [facility] Feb 05, 2009 08:29 AM V1-PT THINKING ABOUT QUIT TOBACCO USE PR CNTR [facility] [place] [facility] Aug 22, 2008 09:04 AM QUIT TOBACCO USE IN PAST YEAR PR CNTR [facility] [place] [facility] Mar 12, 2008 10:40 AM V1-PT DECLINES REF TO TOBACCO CESS PRGM PR CNTR [facility] [place] [facility] Mar 12, 2008 10:40 AM V1-PT DECLINES TOBACCO CESSATION MEDS PR [facility]TR [facility] [place] [facility] Mar 12, 2008 10:40 AM V1-PT NOT INTERESTED IN QUIT TOBACCO USE PR [facility] [place] [facility] Mar 08, 2008 09:37 AM CURRENT SMOKER smokes one pack a day for about 10 years ago. [facility] [place] [facility] Encounter Notes: All associated encounter notes This section contains the clinical notes associated to the Encounter. Date/Time Encounter Note(s) Provider Source Mar 06, 2024 12:30 PM LETTERS: LOCAL TITLE: PATIENT LETTER (T) STANDARD TITLE: LETTERS DATE OF NOTE: MAR 06, 2024@12:30 ENTRY DATE: MAR 06, 2024@12:30:15 AUTHOR: KATY CASTILLO EXP COSIGNER: URGENCY: STATUS: COMPLETED [facility] Toll Free Number Primary Care Telephone Assistance can be reached at extension [phone] [facility] scheduling can be reached at extension [phone] [facility] scheduling can be reached at ext [phone] REID SAMPLE [address] [place], [place], [address] [place] Sample, I sent prescriptions for you for iron and vit D. the lab work is enclosed but I want point out the highlights: 1. you have normal potassium 2. and normal creatinine/but you may still have chronic kidney disease 3. you do have low iron and need supplement 4. you have low vit D and your urine shows you spill too much protein in urine Please discuss with your community PCP to get referral to nephrology for CKD and follow up these concerns. Sincerely, Your Primary Care Team [facility] [address] [facility] [address] [place] [address] [place] [address] [facility] [address] [place] [address] [place] [address] [facility] [address] [facility] [place] [id number] [place] [address] FAYE CASTILLO [facility] [place] [facility] Jan 17, 2024 03:16 PM PREVENTIVE MEDICINE NURSING NOTE: LOCAL TITLE: CLINICAL REMINDERS/NURSING STANDARD TITLE: PREVENTIVE MEDICINE NURSING NOTE DATE OF NOTE: JAN 17, 2024@15:16 ENTRY DATE: JAN 17, 2024@15:16:04 AUTHOR: OLGA GREEN EXP COSIGNER: URGENCY: STATUS: COMPLETED Advance Directive Screen AD: Patient has an up-to-date Advance Directive at an outside, non-va facility and was asked to forward a copy to his/her clinician. Herpes Zoster (Shingles) Vaccine: The patient declines to receive the recommended dose of zoster (shingles) vaccine. Immunization: ZOSTER RECOMBINANT Refusal Reason: PATIENT DECISION Patient refuses all immunization(s) in the ZOSTER group Date Documented: 01/17/24 15:16 /divya/ OLGA GREEN, MSN, RN, CNL PRIMARY CARE TEAM NURSE Signed: 01/17/2024 15:17 OLGA GREEN [place] [facility] [place] [facility] Jan 17, 2024 03:12 PM PHYSICIAN NOTE: LOCAL TITLE: MD NOTE STANDARD TITLE: PHYSICIAN NOTE DATE OF NOTE: JAN 17, 2024@15:12 ENTRY DATE: JAN 17, 2024@15:12:45 AUTHOR: KATY CASTILLO COSIGNER: URGENCY: STATUS: COMPLETED HISTORY OF PRESENT ILLNESS: REID QUEZADA, is a 63 yo WHITE FEMALE [place] who presents at the [facility] at [facility] CC. HTN HPI. this vet presents to PCP to f/u for HTN control. she has improving control over past year with new dose of diltiazem 240, she has no chest pain or cough. She actually is in good spirits due to stable findings for her chronic osteomyelitis ( followed by [facility] infect dz staff). she reports hx of echo in past few years, no angina, no dyspnea, no fevers. vet also on lisinopril for BP but control is suboptimal. SH. nonsmoker Active problems - Computerized Problem List is the source for the followin. Limited mobility 2. Obesity 3. Haematoma of lower leg 4. Osteomyelitis of right femur 5. Myocardial infarction 6. Long-term current use of anticoagulant 7. Chronic pain 8. CCF - Congestive cardiac failure 9. AF- Atrial Fibrillation (SCT 39675869) 10. Drug abuse 11. Extreme obesity with alveolar hypoventilation 12. Impaired fasting glucose 13. Pulmonary hypertension 14. COPD - Chronic obstructive pulmonary disease 15. Polycythemia vera 16. Anxiety disorder 17. Edema 18. Osteoarthritis of knee 19. Opioid dependence (SNOMED CT 75726884) 20. Microscopic hematuria 21. Tobacco dependence, continuous (SNOMED CT 313675594) 22. Sleep apnea (SNOMED CT 98173209) 23. Varicose Veins 24. Hysterectomy 25. Hypertension (SNOMED CT 18948470) 26. Gastroesophageal Reflux Disorder 27. Inflammatory bowel disease 28. Injury to the Muscles of the Hand (Group IX Function: Forearm Muscles) (ICD- HISTORY: PERIOD OF SERVICE - POST-[employer] FROM Jul TO Oct COMBAT SERVICE INDICATED: No SERVICE CONNECTED % - NONE FOUND VITAL SIGNS: Temperature 97.9 F [36.6 C] (09/08/2023 13:03) Blood Pressure 167/69 (09/08/2023 13:03) Pulse 71 (09/08/2023 13:03) Respiration 20 (09/08/2023 13:03) Pain 6 (09/08/2023 13:03) BMI BMI: 48.2 Weight 280 lb [127.01 kg] (06/10/2023 07:34) Pulse Oximetry 93% (09/08/2023 13:03) Review of Systems: CONSTITUTIONAL: No fever, no [...] ATORVASTATIN CALCIUM 80MG TAB Qty: 90 ACTIVE (S) Issu:08-26-23 for 90 days Sig: TAKE ONE TABLET BY Refills: 0 Last:02-13-24 MOUTH ONCE DAILY FOR CHOLESTEROL Expr:08-26-24 3) BUPRENORPHINE HCL 2MG SUBLINGUAL TAB ACTIVE (S) Issu:11-17-23 Qty: 240 for 30 days Sig: DISSOLVE Refills: 3 Last:01-24-24 TWO TABLETS UNDER THE TONGUE FOUR Expr:05-19-24 TIMES A DAY 4) CLONAZEPAM 0.5MG TAB Qty: 120 for 30 HOLD Issu:01-03-24 days Sig: TAKE TWO TABLETS BY MOUTH Refills: 1 ONCE DAILY AND TAKE ONE TABLET TWICE Expr:07-05-24 DAILY NEEDED FOR ANXIETY 5) DILTIAZEM (EQV-TIAZAC) 240MG 24HR CAP ACTIVE Issu:09-08-23 Qty: 90 for 90 days Sig: TAKE ONE Refills: 3 Last:09-08-23 CAPSULE BY MOUTH ONCE DAILY Expr:09-08-24 6) LISINOPRIL 40MG TAB Qty: 90 for 90 days ACTIVE (S) Issu:08-26-23 Sig: TAKE ONE TABLET BY MOUTH ONCE Refills: 0 Last:02-17-24 DAILY TO CONTROL BLOOD PRESSURE Expr:08-26-24 7) OXYCODONE HCL 5MG TAB NOT SA Qty: ACTIVE Issu:01-04-24 336 for 28 days Sig: TAKE FOUR Refills: 0 Last:01-04-24 TABLETS BY MOUTH THREE TIMES DAILY Expr:02-03-24 NEEDED FOR PAIN [NEXT FILL 02/02/2024] 8) TEMAZEPAM 30MG CAP Qty: 30 for 30 days HOLD Issu:01-03-24 Sig: TAKE ONE CAPSULE BY MOUTH AT Refills: 3 BEDTIME NEEDED FOR SLEEP Expr:07-05-24 9) THEOPHYLLINE 400MG 24HR SA TAB Qty: [...] Sig: ACTIVE 0.5ML INTRAMUSCULARLY NOW 6) Non-VA [id number]/VILANTERO L25MCG ACTIVE 30D INH Si INHALATION BY [...] Connect Capable DUE NOW Advance Directive Screen MH AD Sep 22 Cervical Cancer Screening Dec 24 Follow Up Colonoscopy December 14 Home Telehealth (CCHT) Referral DUE NOW Lipid Screening DUE NOW Mental Health Treatment Plan DUE NOW Mammogram Screening Dec 24 Medication Reconciliation DUE NOW HTN Assess for Elevated BP>=140/90 DUE NOW Offer Overdose Education and Naloxone DUE NOW Herpes Zoster (Shingles) Vaccine DUE NOW Sexual Orientation December 11 RHS Screen DUE NOW Eye Care At-Risk Screen DUE NOW Hepatitis A Vaccine for High Risk DUE NOW (Optional) Whole Health Documentation DUE NOW ASSESSMENT/PLAN: 1. HTN 2. limited mobility Plan 1. vet will continue diltiazem 240 daily 2. incr lisinopril from 40 to 60 daily 3. check renal fxn with microalbmin anc creat 4. vet will reduce sodium in diet 5. monitor home BP and if needed consider adding clonidine 6. vet wants to avoid chlorthalidone/diuretic due to her wheelchair dependence. 7. f/u PRN and in 6 mos LAB ORDERS FOR NEXT APPT. spent [...] this VA (local) and dispensed from another PR or DoD facility (remote) as well as [...] provider. /divya/ ROMANA CASTILLO MD PHYSICIAN Signed: 01/17/2024 15:34 FAYE CASTILLO [facility]
--- OUTSIDE RECORDS SUMMARY | 2024-07-25 11:34 | XMS_ITS | Encounter Summary ---
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 Organization [place] Address [address] [place] [id number] Care Team Providers Care Lighting Director Name Role Phone ROMANA CASTILLO Primary [...] Garcia's Name Patient's Relationship to Policy Garcia [facility] (MEDICAID) [facility] May 14, 2009 [id number] SAMPLE,ROCCO MOORE PATIENT [facility] MEDICAID [facility] May 14, 2009 [id number] SAMPLE,ROCCO MOORE PATIENT MEDICAID MEDICAID [facility] Jul 26, 2018 MEDICAI D [id number] SAMPLE,ROCCO MOORE PATIENT MEDICARE (WNR) MEDICARE (M) PART A November 24, 2015 PART A [id number] SAMPLE,ROCCO MOORE PATIENT MEDICARE (WNR) MEDICARE (M) PART B November 24, 2015 PART B [id number] [phone] ROCCO QUEZADA PATIENT Selected Encounter This [...] - MEDICINE PR C [facility] [place] [facility] Oct 07, 2023 01:00 PM AMBULATORY - PSYCHIATRY PR [facility] [facility] Oct 25, 2023 11:00 AM AMBULATORY - MEDICINE PR C [facility] [place] [facility] Nov 09, 2023 09:00 AM AMBULATORY - MEDICINE PR C [facility] [place] [facility] Nov 17, 2023 09:30 AM AMBULATORY - MEDICINE PR C [facility] [place] [facility] Jan 03, 2024 11:00 AM AMBULATORY - PSYCHIATRY PR [facility] [place] [facility] Jan 17, 2024 03:00 PM AMBULATORY - MEDICINE PR C [facility] [place] [facility] Jan 26, 2024 09:30 AM AMBULATORY - MEDICINE PR C [facility] [place] [facility] Feb 03, 2024 03:00 PM AMBULATORY - MEDICINE PR C [facility] [place] [facility] Feb 14, 2024 11:00 AM AMBULATORY - PSYCHIATRY PR [facility] [facility] Mar 06, 2024 09:00 AM AMBULATORY - MEDICINE PR C [facility] [facility] Social History: Smoking Status (Most current) and [...] 31, 2023 11:00 AM VA-TOBACCO [facility] Tobacco Use History This section includes a history of the smoking, or tobacco-related health factors, that were collected on or before the date of the Encounter. The data comes from the PR facility where the Encounter took place. Date/Time Smoking Status/Tobac co Use Comment Facility Mar 31, 2023 11:00 AM VA-TOBACCO QUIT 1 TO < 5 YRS [facility] [place] [facility] Mar 25, 2022 10:30 AM VA-TOBACCO NEVER USED [facility] [place] [facility] Mar 19, 2021 02:00 PM VA-TOBACCO FORMER USER [facility] [place] [facility] Mar 19, 2021 02:00 PM VA-TOBACCO QUIT < 1 YEAR [facility] Sep 20, 2018 11:24 AM VA-TOBACCO USE DECLINED [facility] [place] [facility] Oct 21, 2017 08:13 AM QUIT TOBACCO USE IN PAST YEAR [facility] [place] [facility] Dec 30, 2016 08:28 AM QUIT TOBACCO USE 1-7 YEARS AGO [facility] [place] [facility] Jun 04, 2016 08:43 AM QUIT TOBACCO USE 1-7 YEARS AGO [facility] [place] [facility] May 17, 2015 08:45 AM QUIT TOBACCO USE 1-7 YEARS AGO quit 2 years ago. [facility] [place] [facility] Jun 07, 2014 09:25 AM QUIT TOBACCO USE 1-7 YEARS AGO PR CNT [facility] [facility] November 30, 2013 08:44 AM QUIT TOBACCO USE IN PAST YEAR [facility] [place] [facility] May 22, 2013 10:10 AM QUIT TOBACCO USE IN PAST YEAR [facility] [place] [facility] December 01, 2012 01:54 PM QUIT TOBACCO USE IN PAST YEAR [facility] [place] [facility] Jun 07, 2012 08:16 AM V1-PT DECLINES TOBACCO CESSATION MEDS [facility] Jun 07, 2012 08:16 AM V1-PT THINKING ABOUT QUIT TOBACCO [facility] [place] [facility] Jan 05, 2012 09:00 AM CURRENT SMOKER intermittenly [facility] [place] [facility] Jan 05, 2012 09:00 AM V1-PT DECLINES REF TO TOBACCO CESS PRGM PR CNTR [place] [facility] Jan 05, 2012 09:00 AM V1-PT DECLINES TOBACCO CESSATION MEDS [facility] [place] [facility] Jan 05, 2012 09:00 AM V1-PT THINKING ABOUT QUIT TOBACCO USE [facility] [place] [facility] Feb 17, 2011 09:52 AM V1-PT DECLINES TOBACCO CESSATION MEDS [facility] [place] [facility] Feb 17, 2011 09:52 AM V1-PT THINKING ABOUT QUIT TOBACCO USE [facility] [place] [facility] Aug 13, 2010 11:31 AM QUIT TOBACCO USE IN PAST YEAR [facility] [place] [facility] Feb 19, 2010 01:26 PM QUIT TOBACCO USE IN PAST YEAR [facility] [place] [facility] Sep 13, 2009 11:04 AM QUIT TOBACCO USE IN PAST YEAR [facility] [place] [facility] Feb 05, 2009 08:29 AM V1-PT DECLINES REF TO TOBACCO CESS PRGM [facility] [place] [facility] Feb 05, 2009 08:29 AM V1-PT DECLINES TOBACCO CESSATION MEDS [facility] [place] [facility] Feb 05, 2009 08:29 AM V1-PT THINKING ABOUT QUIT TOBACCO USE [facility] [place] [facility] Aug 22, 2008 09:04 AM QUIT TOBACCO USE IN PAST YEAR PR CNTR [facility] [facility] Mar 12, 2008 10:40 AM V1-PT DECLINES REF TO TOBACCO CESS PRGM PR CNTR [place] [facility] Mar 12, 2008 10:40 AM V1-PT DECLINES TOBACCO CESSATION MEDS PR CNTR [facility] [facility] Mar 12, 2008 10:40 AM V1-PT NOT INTERESTED IN QUIT TOBACCO USE [facility] [place] [facility] Mar 08, 2008 09:37 AM CURRENT SMOKER smokes one pack a day for about 10 years ago. [facility]
--- OUTSIDE RECORDS SUMMARY | 2024-07-25 11:35 | XMS_ITS | Encounter Summary ---
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 Organization [place] Address [address] [place] [id number] Care Team Providers Care Card Hand Name Role Phone ROMANA CASTILLO Primary [...] Policy Garcia [facility] (MEDICAID) [facility]ID [facility] May 14, 2009 [id number] SAMPLE,ROCCO MOORE PATIENT [facility] MEDICAID [facility] May 14, 2009 [id number] SAMPLE,ROCCO MOORE PATIENT MEDICAID MEDICAID [facility] Jul 26, 2018 MEDICAI D [id number] SAMPLE,ROCCO MOORE PATIENT MEDICARE (WNR) MEDICARE (M) PART A November 24, 2015 PART A [id number] SAMPLE,ROCCO MOORE PATIENT MEDICARE (WNR) MEDICARE (M) PART B November 24, 2015 PART B [id number] ROCCO QUEZADA PATIENT Selected Encounter This [...] - MEDICINE [place] [facility] Feb 14, 2024 11:00 AM AMBULATORY [place]RY [place] [facility] Mar 06, 2024 09:00 AM AM[place]UL[place]ORY [place]IC[place] [facility] Apr 03, 2024 11:30 AM AM[place]UL[place]ORY [place]ICINE [place] [facility] Apr 13, 2024 11:00 AM AMBULATORY [place]RY [place] [facility] Apr 13, 2024 02:00 PM AMBUL[place]ORY [place] [facility] Apr 13, 2024 03:00 PM AM[place]UL[place]ORY [place] [facility] May 02, 2024 11:00 AM AM[place]UL[place]ORY [place] [facility] May 15, 2024 11:30 AM AMBULATORY [place]RY [place] [facility] May 25, 2024 11:30 AM AM[place]ORY [place]ICINE [place] [facility] Jul 13, 2024 10:00 AM AM[place] [facility] Aug 03, 2024 01:00 PM AMBULATORY [place]RY [place] [facility] Active, [...] of theEncounter. The data comes from all [place] treatment facilities. Test Date/Time Test Type Test Details Facility Name Jan 17, 2024 12:00 AM Laboratory - Chemistry Order BASIC METABOLIC PANEL (non-fasting) BLOOD (SST[facility]SERUM) [facility] Jan 17, 2024 12:00 AM Laboratory - Chemistry Order LIPID PANEL, NON FASTING BLOOD (SST-SERUM) [facility] Jan 17, 2024 12:00 AM Laboratory - Chemistry Order LIVER FUNCTION BLOOD (SST-SERUM) [facility] Jan 17, 2024 12:00 AM Laboratory - Chemistry Order TSH BLOOD (SST-SERUM) [facility] Jan 17, 2024 12:00 AM Laboratory - Chemistry Order MICROALBUMIN CREATININE RATIO PANEL URINE (RANDOM) [facility] Social History: Smoking Status [...] place. Date/Time Current Smoking Status Comment Rosana [facility] Mar 31, 2023 11:00 AM VA-TOBACCO FORMER USER [facility] Tobacco Use History This section includes a history of the smoking, or tobacco-related health factors, that were collected on or before the date of the Encounter. The data comes from the [place] facility where the Encounter took place. Date/Time Smoking Status/Tobac co Use Comment Facility Mar 31, 2023 11:00 AM VA-TOBACCO QUIT 1 TO < 5 YRS [place] [facility] Mar 25, 2022 10:30 AM VA-TOBACCO NEVER USED [place] [facility] Mar 19, 2021 02:00 PM VA-TOBACCO FORMER USER [place] [facility] [facility] Mar 19, 2021 02:00 PM VA-TOBACCO QUIT < 1 YEAR [facility] Sep 20, 2018 11:24 AM VA-TOBACCO USE DECLINED TO ANSWER [facility] [place] [facility] Oct 21, 2017 08:13 AM QUIT TOBACCO USE IN PAST YEAR [place] [facility] Dec 30, 2016 08:28 AM QUIT TOBACCO USE 1-7 YEARS AGO [place] [facility] Jun 04, 2016 08:43 AM QUIT TOBACCO USE 1-7 YEARS AGO [place] [facility] May 17, 2015 08:45 AM QUIT TOBACCO USE 1-7 YEARS AGO quit 2 years ago. [place] [facility] Jun 07, 2014 09:25 AM QUIT TOBACCO USE 1-7 YEARS AGO [place] [facility] November 30, 2013 08:44 AM QUIT TOBACCO USE IN PAST YEAR [place] [facility] May 22, 2013 10:10 AM QUIT TOBACCO USE IN PAST YEAR [facility] [place] [facility] December 01, 2012 01:54 PM QUIT TOBACCO USE IN PAST YEAR [facility] [place] [facility] Jun 07, 2012 08:16 AM V1-PT DECLINES TOBACCO CESSATION MEDS [facility] [place] [facility] Jun 07, 2012 08:16 AM V1-PT THINKING ABOUT QUIT TOBACCO USE [facility] [place] [facility] Jan 05, 2012 09:00 AM CURRENT SMOKER intermittenly [facility] [place] [facility] Jan 05, 2012 09:00 AM V1-PT DECLINES REF TO TOBACCO CESS PRGM [facility] [place] [place] [facility] Jan 05, 2012 09:00 AM V1-PT DECLINES TOBACCO CESSATION MEDS [facility] [place] [facility] Jan 05, 2012 09:00 AM V1-PT THINKING ABOUT QUIT TOBACCO USE [facility] [place] [facility] Feb 17, 2011 09:52 AM V1-PT DECLINES TOBACCO CESSATION MEDS [facility] [place] [facility] Feb 17, 2011 09:52 AM V1-PT THINKING ABOUT QUIT TOBACCO USE [facility] [place] [facility] Aug 13, 2010 11:31 AM QUIT TOBACCO USE IN PAST YEAR [facility] [place] [facility] Feb 19, 2010 01:26 PM QUIT TOBACCO [facility] Sep 13, 2009 11:04 AM QUIT TOBACCO USE IN PAST YEAR [facility] Feb 05, 2009 08:29 AM V1-PT DECLINES REF TO TOBACCO CESS PRGM [facility] Feb 05, 2009 08:29 AM V1-PT DECLINES TOBACCO CESSATION MEDS [facility] Feb 05, 2009 08:29 AM V1-PT THINKING ABOUT QUIT TOBACCO USE [facility] Aug 22, 2008 09:04 AM QUIT TOBACCO USE IN PAST YEAR [facility] Mar 12, 2008 10:40 AM V1-PT DECLINES REF TO TOBACCO CESS PRGM [facility] Mar 12, 2008 10:40 AM V1-PT DECLINES TOBACCO CESSATION MEDS [facility] Mar 12, 2008 10:40 AM V1-PT NOT INTERESTED IN QUIT TOBACCO USE [facility] Mar 08, 2008 09:37 AM [...] BEULAH LOPEZ EXP COSIGNER: URGENCY: STATUS: COMPLETED [facility] Toll Free Number ext [phone] [facility] scheduling can be reached at ext. [phone] [facility] Care- ext. [phone] [facility]- ext. [phone] [facility]- ext. [phone] FEB 02, 2024 REID QUEZADA [address] [place], [place] [address] Dear SAMPLE,REID Thank you for choosing the Department of [facility] ([place]) Medical [place] as your primary choice for health care. [...] would like to be seen, please contact [facility] at ext. [phone] to schedule an appointment. 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 Sincerely, [facility] [address] [facility] [address] [place] [address] [place] [address] ext [phone] [facility] [address] [facility] [address] [place] [address] [place] [address] ext. [phone] [facility] [address] [facility] [address] [place] [address] [place] [address] ext. [phone] BEULAH LOPEZ [facility] [place] [facility] Feb 02, 2024 09:51 AM ADMINISTRATIVE NOT E: LOCAL TITLE: ADMINISTRATIVE RECALL NOTE STANDARD TITLE: ADMINISTRATIVE NOTE DATE OF NOTE: FEB 02, 2024@09:51 ENTRY DATE: FEB 02, 2024@09:51:37 AUTHOR: BEULAH LOPEZ EXP COSIGNER: URGENCY: STATUS: COMPLETED ADMINISTRATIVE RECALL NOTE Has ADDENDA RTC orders: Unable to contact patient: Attempts to contact: 1st attempt: Left voicemail 2nd attempt: Letter mailedDisposition onJan 3rd attempt: 4th attempt: /divya/ BEULAH LOPEZ ADVANCED CHICK GRADER Signed: 02/02/2024 09:51 02/07/2024 ADDENDUM STATUS: COMPLETED 3RD ATTEMPT- LVM. /divya/ LORI QUEVEDO ADVANCED CHICK GRADER Signed: 02/07/2024 11:54 BEULAH LOPEZRShelley [facility]
--- OUTSIDE RECORDS SUMMARY | 2024-07-25 11:35 | XMS_ITS | Encounter Summary ---
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 Address [address] [place] [address] Care Team Providers Care Custom Ski Maker Name Role Phone ROMANA CASTILLO Primary [...] Policy Garcia [facility] (MEDICAID) [facility] May 14, 2009 [id number] SAMPLE,ROCCO MOORE PATIENT [facility]ICAID [facility] May 14, 2009 [id number] SAMPLE,ROCCO MOORE PATIENT MEDICAID MEDICAID [facility] [place] Jul 26, 2018 MEDICAI D [id number] SAMPLE,ROCCO MOORE PATIENT MEDICARE (WNR) MEDICARE (M) PART A November 24, 2015 PART A [id number] SAMPLE,ROCCO MOORE PATIENT MEDICARE (WNR) MEDICARE (M) PART B November 24, 2015 PART B [id number] ROCCO QUEZADA PATIENT Selected Encounter This [...] - MEDICINE [place] [facility] Feb 03, 2024 03:00 PM AMBULATORY - MEDICINE [place] [facility] Feb 14, 2024 11:00 AM AMBULATORY - PSYCHIATRY [place] [facility] Mar 06, 2024 09:00 AM AMBULATORY - MEDICINE [place] [facility] Apr 03, 2024 11:30 AM AMBULATORY - MEDICINE [place] [facility] Apr 13, 2024 11:00 AM AMBULATORY - PS[place]CHIATRY [place] [facility] [facility] Apr 13, 2024 02:00 PM AMBULATORY - [place]ICINE [place] [facility] Apr 13, 2024 03:00 PM AMBULATORY - MEDICINE [place] [facility] May 02, 2024 11:00 AM AMBULATORY - [place]ICINE [place] [facility] May 15, 2024 11:30 AM AMBULATORY - PSYCHIATRY [place] [facility] [place] [facility] May 25, 2024 11:30 AM AMBULATORY - [place]ICINE [place] [facility] Jul 13, 2024 10:00 AM AMBULATORY - [place]ICINE [place] [facility] Active, Pending, and Scheduled Orders [...] data comes from all [place] treatment facilities. Test Date/Time Test Type Test Details Facility Name Jan 17, 2024 12:00 AM Laboratory - Chemistry Order BASIC METABOLIC PANEL (non-fasting) BLOOD (SST-SERUM) [facility] Jan 17, 2024 12:00 AM Laboratory - Chemistry Order LIPID PANEL, NON FASTING BLOOD (SST-SERUM) [facility] Jan 17, 2024 12:00 AM Laboratory - Chemistry Order LIVER FUNCTION BLOOD (SST-SERUM) [facility] Jan 17, 2024 12:00 AM Laboratory - Chemistry Order TSH BLOOD (SST-SERUM) [facility] Jan 17, 2024 12:00 AM Laboratory - Chemistry Order MICROALBUMIN CREATININE RATIO PANEL URINE (RANDOM) [facility] Social History: Smoking Status (Most current) and [...] place. Date/Time Current Smoking Status Comment Rosana [facility] Mar 31, 2023 11:00 AM VA-TOBACCO [facility] Tobacco Use History This section includes a history of the smoking, or tobacco-related health factors, that were collected on or before the date of the Encounter. The data comes from the [place] facility where the Encounter took place. Date/Time Smoking Status/Tobac co Use Comment Facility Mar 31, 2023 11:00 AM VA-TOBACCO QUIT 1 TO < 5 YRS [place] [facility] Mar 25, 2022 10:30 AM VA-TOBACCO NEVER USED [place] [facility] Mar 19, 2021 02:00 PM VA-TOBACCO FORMER USER [place] [facility] [facility] Mar 19, 2021 02:00 PM VA-TOBACCO QUIT < 1 [facility] Sep 20, 2018 11:24 AM VA-TOBACCO USE DECLINED TO ANSWER [facility] [place] [place] [place] [facility] Oct 21, 2017 08:13 AM QUIT TOBACCO USE IN PAST YEAR [place] [facility] [place] [facility] Dec 30, 2016 08:28 AM QUIT TOBACCO USE 1-7 YEARS AGO [place] [facility] [facility] Jun 04, 2016 08:43 AM QUIT TOBACCO USE 1-7 YEARS AGO [place] [facility] [facility] May 17, 2015 08:45 AM QUIT TOBACCO USE 1-7 YEARS AGO quit 2 years ago. [place] [facility] [facility] Jun 07, 2014 09:25 AM QUIT TOBACCO USE 1-7 YEARS AGO [place] [facility] November 30, 2013 08:44 AM QUIT TOBACCO USE IN PAST YEAR [place] [facility] [facility] May 22, 2013 10:10 AM QUIT TOBACCO USE IN PAST YEAR [facility] [place] [facility] December 01, 2012 01:54 PM QUIT TOBACCO USE IN PAST YEAR [facility] [place] [facility] Jun 07, 2012 08:16 AM V1-PT DECLINES TOBACCO CESSATION MEDS [facility] [place] [facility] Jun 07, 2012 08:16 AM V1-PT THINKING ABOUT QUIT TOBACCO USE [facility] [place] [facility] Jan 05, 2012 09:00 AM CURRENT SMOKER intermittenly [facility] [place] [facility] Jan 05, 2012 09:00 AM V1-PT DECLINES REF TO TOBACCO CESS PR[facility] [place] [place] [facility] Jan 05, 2012 09:00 AM V1-PT DECLINES TOBACCO CESSATION MEDS [facility] [place] [facility] Jan 05, 2012 09:00 AM V1-PT THINKING ABOUT QUIT TOBACCO USE [facility] [place] [facility] Feb 17, 2011 09:52 AM V1-PT DECLINES TOBACCO CESSATION MEDS [facility] [place] [facility] Feb 17, 2011 09:52 AM V1-PT THINKING ABOUT QUIT TOBACCO USE [facility] [place] [facility] Aug 13, 2010 11:31 AM QUIT TOBACCO USE IN PAST YEAR [facility] [place] [place] [facility] Feb 19, 2010 01:26 PM QUIT TOBACCO USE IN PAST YEAR [facility] Sep 13, 2009 11:04 AM QUIT TOBACCO USE IN PAST YEAR [facility] Feb 05, 2009 08:29 AM V1-PT DECLINES REF TO TOBACCO CESS PRGM [facility] Feb 05, 2009 08:29 AM V1-PT DECLINES TOBACCO CESSATION MEDS [facility] Feb 05, 2009 08:29 AM V1-PT THINKING ABOUT QUIT TOBACCO USE [facility] Aug 22, 2008 09:04 AM QUIT TOBACCO USE IN PAST YEAR [facility] Mar 12, 2008 10:40 AM V1-PT DECLINES REF TO TOBACCO CESS PRGM [facility] Mar 12, 2008 10:40 AM V1-PT DECLINES TOBACCO CESSATION MEDS [facility] Mar 12, 2008 10:40 AM V1-PT NOT INTERESTED IN QUIT TOBACCO USE [facility] Mar 08, 2008 09:37 AM CURRENT SMOKER smokes one pack a day for about 10 years ago. [facility] Encounter Notes: All associated encounter notes This [...] No answer, lvm. /divya/ BEULAH LOPEZ ADVANCED RAIL EXPRESS CLERK Signed: 01/25/2024 09:59 BEULAH LOPEZ [facility]
--- OUTSIDE RECORDS SUMMARY | 2024-07-25 11:35 | XMS_ITS | Encounter Summary ---
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 Organization [facility] [place] Address [address] [place] [id number] Care Team Providers Care Facility Operations Manager Name Role Phone ROMANA CASTILLO Primary [...] [facility] (MEDICAID) [facility] May 14, 2009 [id number] SAMPLE,ROCCO MOORE PATIENT [facility] MEDICAID [facility] May 14, 2009 [id number] SAMPLE,ROCCO MOORE PATIENT MEDICAID MEDICAID [facility] Jul 26, 2018 MEDICAI D [id number] SAMPLE,ROCCO MOORE PATIENT MEDICARE (WNR) MEDICARE (M) PART A November 24, 2015 PART A [id number] SAMPLE,ROCCO MOORE PATIENT MEDICARE (WNR) MEDICARE (M) PART B November 24, 2015 PART B [id number] [phone] ROCCO QUEZADA PATIENT Selected Encounter This [...] activities [facility] the [facility] [place] [facility] This section includes future appointments [...] AMBULATORY - PSYCHIATRY [facility] [place] [facility] Mar 06, 2024 09:00 AM AMBULATORY - MEDICINE [place] [facility] [place] [facility] Apr 03, 2024 11:30 AM AMBULATORY - MEDICINE [place] [facility] [place] [facility] Apr 13, 2024 11:00 AM AMBULATORY - PSYCHIATRY [facility] [place] [facility] Apr 13, 2024 02:00 PM AMBULATORY - MEDICINE [place] [facility] [place] [facility] Apr 13, 2024 03:00 PM AMBULATORY - MEDICINE [place] [facility] [place] [facility] May 02, 2024 11:00 AM AMBULATORY - MEDICINE [place] [facility] [place] [facility] May 15, 2024 11:30 AM AMBULATORY - PSYCHIATRY [facility] [place] [facility] May 25, 2024 11:30 AM AMBULATORY - MEDICINE [facility] [place] [facility] Jul 13, 2024 10:00 AM AMBULATORY - MEDICINE [facility] [place] [facility] Aug 03, 2024 01:00 PM AMBULATORY - PSYCHIATRY [facility] [place] [facility] Active, Pending, and Scheduled Orders This section includes a listing of several types of active, pending, and scheduled orders, including clinic medications orders, diagnostic test orders, procedure orders and consult orders; where the start date of the order is 45 days before the date of the Encounter or 45 days after the date of theEncounter. The data comes from all [facility] treatment facilities. Test Date/Time Test Type Test Details Facility Name Jan 17, 2024 12:00 AM Laboratory - Chemistry Order BASIC METABOLIC PANEL (non-fasting) BLOOD (SST-SERUM) [facility] Jan 17, 2024 12:00 AM Laboratory - Chemistry Order LIPID PANEL, NON FASTING BLOOD (SST-SERUM) [facility] Jan 17, 2024 12:00 AM Laboratory - Chemistry Order LIVER FUNCTION BLOOD (SST-SERUM) [facility] Jan 17, 2024 12:00 AM Laboratory - Chemistry Order TSH BLOOD (SST-SERUM) [facility] Jan 17, 2024 12:00 AM Laboratory - Chemistry Order MICROALBUMIN CREATININE RATIO PANEL URINE (RANDOM) [facility] Lab Results: +/- 30 days of [...] Range Comment Mar 06, 2024 09:56 AM [facility] VITAMIN D (25-OH) Specimen Type: SERUM No comment entered. Ordering Provider: Sherrie CASTILLO Report Released Date/Time: Mar 06, 2024 09:36 AM Reporting Lab: [address] [address] Performing Lab: [address] [address] VITAMIN D (25-OH) 20 ng/mL 20-50 Mar 06, 2024 09:56 AM [facility] IRON & TIBC PANEL Specimen Type: SERUM No comment entered. Ordering Provider: Sherrie CASTILLO Report Released Date/Time: Mar 06, 2024 09:36 AM Reporting Lab: [address] [address] Performing Lab: [facility] [place] [facility] [address] [facility] [address] TIBC 364 ug/dL 204-475 IRON 36 ug/dL L 40-160 Transferrin Saturation 9.9 L 20.0-50.0 Mar 06, 2024 09:56 AM [facility] FERRITIN Specimen Type: SERUM No comment entered. Ordering Provider: Sherrie CASTILLO Report Released Date/Time: Mar 06, 2024 09:36 AM Reporting Lab: [place] [facility] [place] [facility] [address] [facility] [facility] [address] Performing Lab: [facility] [address] [address] FERRITIN 52 ng/mL 10-200 Mar 06, 2024 09:56 AM [facility] HEMOGLOBIN A1C PANEL Specimen Type: BLOOD [...] Mar 06, 2024 09:36 AM Reporting Lab: [facility] [address] [facility] [facility] [address] Performing Lab: [facility] [address] [address] HEMOGLOBIN A1C 5.4 4.0-5.6 Mar 06, 2024 09:56 AM [facility] MICROALBUMIN CREATININE RATIO PANEL Specimen Type: URINE No comment entered. Ordering Provider: Sherrie CASTILLO Report Released Date/Time: Mar 06, 2024 09:36 AM Reporting Lab: [facility] [address] [address] Performing Lab: [facility] [address] [address] MICROALBUMIN/C REATININE RATIO 251.1 mg/g H 0-29.9 MICROALBUMIN,Q UANTITATIVE 11.2 mg/dL RR UNAVAIL CREATININE URINE 44.60 mg/dL Mar 06, 2024 09:56 AM [facility] BASIC METABOLIC PANEL (non-fasting) Specimen Type: SERUM No comment entered. Ordering Provider: Sherrie CASTILLO Report Released Date/Time: Mar 06, 2024 09:36 AM Reporting Lab: [address] [address] Performing Lab: [address] [address] UREA NITROGEN 28 mg/dL H 7-25 GLUCOSE 130 mg/dL H 65-100 SODIUM 142 mmol/L 135-145 POTASSIUM 4.8 mmol/L 3.5-5.0 CHLORIDE 97 mmol/L L 100-110 CO2 33 meq/L H 20-30 CREATININE, Serum 1.00 mg/dL 0.50-1.40 eGFR(CKD-EPI 2020) 63 mL/min >60 Mar 06, 2024 09:56 AM [facility] CBC AND DIFF (AUTO) Specimen Type: BLOOD No comment entered. Ordering Provider: Sherrie CASTILLO Report Released Date/Time: Mar 06, 2024 09:36 AM Reporting Lab: [facility] [address] [address] Performing Lab: [address] [address] WBC 12.33 10*3/uL H 4.50-11.00 RBC 3.92 [...] took place. Date/Time Current Smoking Status Comment [facility] Mar 31, 2023 11:00 AM VA-TOBACCO FORMER USER [facility] [place] [facility] Tobacco Use History This section includes a history of the smoking, or tobacco-related health factors, that were collected on or before the date of the Encounter. The data comes from the [place] facility where the Encounter took place. Date/Time Smoking Status/Tobac co Use Comment Facility Mar 31, 2023 11:00 AM VA-TOBACCO QUIT 1 TO < 5 YRS [facility] [place] [facility] Mar 25, 2022 10:30 AM VA-TOBACCO NEVER USED [facility] [place] [facility] Mar 19, 2021 02:00 PM VA-TOBACCO FORMER USER [facility] [place] [facility] Mar 19, 2021 02:00 PM VA-TOBACCO QUIT < 1 YEAR [facility] [place] [facility] Sep 20, 2018 11:24 AM VA-TOBACCO USE DECLINED TO ANSWER [facility] [place] [facility] Oct 21, 2017 08:13 AM QUIT TOBACCO USE IN PAST YEAR [facility] [place] [facility] Dec 30, 2016 08:28 AM QUIT TOBACCO USE 1-7 YEARS AGO [facility] [place] [facility] Jun 04, 2016 08:43 AM QUIT TOBACCO USE 1-7 YEARS AGO [facility] [place] [facility] May 17, 2015 08:45 AM QUIT TOBACCO USE 1-7 YEARS AGO quit 2 years ago. [facility] [place] [facility] Jun 07, 2014 09:25 AM QUIT TOBACCO USE 1-7 YEARS AGO [facility] [place] [facility] November 30, 2013 08:44 AM QUIT TOBACCO USE IN PAST YEAR [facility] [place] [facility] May 22, 2013 10:10 AM QUIT TOBACCO USE IN PAST YEAR [facility] [place] [facility] December 01, 2012 01:54 PM QUIT TOBACCO USE IN [facility]ST [facility]AR [facility] [place] Jun 07, 2012 08:16 AM V1-PT DECLINES TOBACCO CESSATION MEDS [facility] [place] [facility] Jun 07, 2012 08:16 AM V1-PT THINKING ABOUT QUIT TOBACCO USE [facility] [place] [facility] Jan 05, 2012 09:00 AM CURRENT SMOKER intermittenly [facility] [place] [facility] Jan 05, 2012 09:00 AM V1-PT DECLINES REF TO TOBACCO CESS PRGM [facility] [place] [facility] Jan 05, 2012 09:00 AM V1-PT DECLINES TOBACCO CESSATION MEDS [facility] [place] [facility] Jan 05, 2012 09:00 AM V1-PT THINKING ABOUT QUIT TOBACCO USE [facility] [place] [facility] Feb 17, 2011 09:52 AM V1-PT DECLINES TOBACCO CESSATION MEDS [facility] [place] [facility] Feb 17, 2011 09:52 AM V1-PT THINKING ABOUT QUIT TOBACCO USE [facility] [place] [facility] Aug 13, 2010 11:31 AM QUIT TOBACCO USE IN PAST YEAR [facility] [place] [facility] Feb 19, 2010 01:26 PM QUIT TOBACCO USE IN PAST YEAR [facility] Sep 13, 2009 11:04 AM QUIT TOBACCO USE IN PAST YEAR [facility] Feb 05, 2009 08:29 AM V1-PT DECLINES REF TO TOBACCO CESS PRGM [facility] Feb 05, 2009 08:29 AM V1-PT DECLINES TOBACCO CESSATION MEDS [facility] Feb 05, 2009 08:29 AM V1-PT THINKING ABOUT QUIT TOBACCO USE [facility] Aug 22, 2008 09:04 AM QUIT TOBACCO USE IN PAST YEAR [facility] Mar 12, 2008 10:40 AM V1-PT DECLINES REF TO TOBACCO CESS PRGM [facility] Mar 12, 2008 10:40 AM V1-PT DECLINES TOBACCO CESSATION MEDS [facility] Mar 12, 2008 10:40 AM V1-PT NOT INTERESTED IN QUIT TOBACCO USE [facility] Mar 08, 2008 09:37 AM CURRENT SMOKER smokes one pack a day for about 10 years ago. [facility] Encounter Notes: All associated encounter notes This section contains the clinical notes associated to the Encounter. Date/Time Encounter Note(s) Provider Source Feb 08, 2024 12:56 PM RN PROGRESS NOTE: LOCAL TITLE: CCC: CLINICAL TRIAGE STANDARD TITLE: RN PROGRESS NOTE DATE OF NOTE: FEB 08, 2024@12:56:50 ENTRY DATE: FEB 08, 2024@12:56:50 AUTHOR: LEANNA SOSA COSIGNER: URGENCY: STATUS: COMPLETED Patient Demographics Patient Name: REID QUEZADA Patient Primary [address]: [address] [place] [id number] Patient Primary Phone: [phone] Patient : 1960 Patient Age: 64 Caller/Recipient [...] approval or authorization for payment by the [place] or its staff. Patient advised to report a community ED visit to the [facility] Office of Community Care at within 72 hours. 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 States she signed out of the hospital ama last pm. [place] is requesting to speak w/pact to discuss what are you doing about my renal status , inquiring about recent lab results. [place] agreeable to returning to er to complete w/u for possible renal failure [address] [address] Main number: [phone] call disconnect by prior to completion of triage questioning, she is unable to recall what meds/ testing was completed in er or specifics of visit, states they wanted to do an ultrasound, but I left states she will return now & disconnected call. ++++[place] is requesting pact callback to cell phone to discuss Message sent to 's PACT team via CPRS/CRM, View alerted 2 Pact Team members/Nurse/s PER VISN 1 Protocol for f/u. Caller/[place] verbalizes understanding of the information provided. Advised caller/ that a note will be forwarded to the provider and/or the life care planner for review, further recommendations, and/or follow-up. Advised of 24 hour availability of clinical call center at [phone] to answer questions, address concerns & to provide assistance in navigating healthcare for veterans. Clinical Contact Center Codes Clinic/Location: V1 CWM PHONE SILVERIO RN /divya/ LEANNA SOSA RN VISN1 [facility] Signed: 02/08/2024 12:57 Receipt Acknowledged By: 02/08/2024 13:17 /es/ OLGA GREEN, MSN, RN, CNL PRIMARY CARE TEAM NURSE 02/08/2024 13:07 /es/ Fabiola Hooker, card filer Staff Nurse LEANNA SOSA [facility]
--- OUTSIDE RECORDS SUMMARY | 2024-07-25 11:35 | XMS_ITS | Encounter Summary ---
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 Address [address] [place] [id number] Care Team Providers Care Residential Direct Support Professional Name Role Phone ROMANA CASTILLO Primary Care [...] Garcia's Name Patient's Relationship to Policy Garcia [facility] (MEDICAID[facility] May 14, 2009 [id number] SAMPLE,ROCCO MOORE PATIENT [facility] MEDICAID [facility] May 14, 2009 [id number] SAMPLE,ROCCO MOORE PATIENT MEDICAID MEDICAID [facility] Jul 26, 2018 MEDICAI D [id number] SAMPLE,ROCCO MOORE PATIENT MEDICARE (WNR) MEDICARE (M) PART A November 24, 2015 PART A [id number] SAMPLE,ROCCO MOORE PATIENT MEDICARE (WNR) MEDICARE (M) PART B November 24, 2015 PART B [id number] [phone] ROCCO QUEZADA PATIENT Selected Encounter This [...] activities for the patient from all [place] [facility] This section includes future appointments and [...] AMBULATORY - PSYCHIATRY [place] [facility] [place] [facility] Mar 06, 2024 09:00 AM AMBULATORY - MEDICINE [place] [facility] [place] [facility] Apr 03, 2024 11:30 AM AMBULATORY - MEDICINE [place] [facility] [place] [facility] Apr 13, 2024 11:00 AM AMBULATORY - PSYCHIATRY [place] [facility] [place] [facility] Apr 13, 2024 02:00 PM AMBULATORY - MEDICINE [place] [facility] [place] [facility] Apr 13, 2024 03:00 PM AMBULATORY - MEDICINE [place] [facility] [place] [facility] May 02, 2024 11:00 AM AMBULATORY - MEDICINE [place] [facility] [place] [facility] May 15, 2024 11:30 AM AMBULATORY - PSYCHIATRY [place] [facility] [place] [facility] May 25, 2024 11:30 AM AMBULATORY - MEDICINE [place] [facility] [place] [facility] Jul 13, 2024 10:00 AM AMBULATORY - MEDICINE [place] [facility] [place] [facility] Aug 03, 2024 01:00 PM AMBULATORY - PSYCHIATRY [place] [facility] [place] [facility] Active, Pending, and Scheduled Orders [...] Order BASIC METABOLIC PANEL (non-fasting) BLOOD (SST-SERUM) [facility] Jan 17, 2024 12:00 AM Laboratory - Chemistry Order LIPID PANEL, NON FASTING BLOOD (SST-SERUM) [facility] Jan 17, 2024 12:00 AM Laboratory - Chemistry Order LIVER FUNCTION BLOOD (SST-SERUM) [facility] Jan 17, 2024 12:00 AM Laboratory - Chemistry Order TSH BLOOD (SST-SERUM) [facility] Jan 17, 2024 12:00 AM Laboratory - Chemistry Order MICROALBUMIN CREATININE RATIO PANEL URINE (RANDOM) [facility] Lab Results: +/- 30 days of the encounter This section includes the Chemistry and Hematology Lab Results on record with [place] for the patient. Radiology Reports and Pathology Reports are provided separately, in subsequent sections. Lab Results This section contains the Chemistry/Hematology Results that were resulted 30 days before or 30 daysafter the date of the Encounter. Date/Time Source Result Type Result - Unit Interpretation Reference Range Comment Mar 06, 2024 09:56 AM [facility] VITAMIN D (25-[place]) Specimen Type: SERUM No comment entered. Ordering Provider: Sherrie CASTILLO Report Released Date/Time: Mar 06, 2024 09:36 AM Reporting Lab: [address] [address] Performing Lab: [address] [address] VITAMIN D (25-[place]) 20 ng/mL 20-50 Mar 06, 2024 09:56 AM [facility] IRON & TIBC PANEL Specimen Type: SERUM No comment entered. Ordering Provider: Sherrie CASTILLO Report Released Date/Time: Mar 06, 2024 09:36 AM Reporting Lab: [address] [address] Performing [facility]: [facility] [address] [facility] [address] TIBC 364 ug/dL 204-475 IRON 36 ug/dL L 40-160 Transferrin Saturation 9.9 L 20.0-50.0 Mar 06, 2024 09:56 AM [facility] HEMOGLOBIN A1C PANEL Specimen Type: BLOOD [...] Mar 06, 2024 09:36 AM Reporting Lab: [facility] [address] [facility] [address] Performing Lab: [facility] [address] HEMOGLOBIN A1C 5.4 4.0-5.6 Mar 06, 2024 09:56 AM [facility] FERRITIN Specimen Type: SERUM No comment entered. Ordering Provider: Sherrie CASTILLO Report Released Date/Time: Mar 06, 2024 09:36 AM Reporting Lab: [facility] [address] [facility] [address] Performing Lab: [facility] [address] FERRITIN 52 ng/mL 10-200 Mar 06, 2024 09:56 AM [facility] MICROALBUMIN CREATININE RATIO PANEL Specimen Type: URINE No comment entered. Ordering Provider: Sherrie CASTILLO Report Released Date/Time: Mar 06, 2024 09:36 AM Reporting Lab: [facility] [address] [facility] [address] Performing Lab: [facility] [address] MICROALBUMIN/C REATININE RATIO 251.1 mg/g H 0-29.9 MICROALBUMIN,Q UANTITATIVE 11.2 mg/dL RR UNAVAIL CREATININE URINE 44.60 mg/dL Mar 06, 2024 09:56 AM [facility] BASIC METABOLIC PANEL (non-fasting) Specimen Type: SERUM No comment entered. Ordering Provider: Sherrie CASTILLO Report Released Date/Time: Mar 06, 2024 09:36 AM Reporting Lab: [address] [address] Performing Lab: [address] [address] UREA NITROGEN 28 mg/dL H 7-25 GLUCOSE 130 mg/dL H 65-100 SODIUM 142 mmol/L 135-145 POTASSIUM 4.8 mmol/L 3.5-5.0 CHLORIDE 97 mmol/L L 100-110 CO2 33 meq/L H 20-30 CREATININE, Serum 1.00 mg/dL 0.50-1.40 eGFR(CKD-EPI 2020) 63 mL/min >60 Mar 06, 2024 09:56 AM [facility] CBC AND DIFF (AUTO) Specimen Type: BLOOD No comment entered. Ordering Provider: Sherrie CASTILLO Report Released Date/Time: Mar 06, 2024 09:36 AM Reporting Lab: [facility] [address] [facility] [address] Performing Lab: [address] [address] WBC 12.33 10*3/uL H 4.50-11.00 RBC 3.92 [...] took place. Date/Time Current Smoking Status Comment [facility] Mar 31, 2023 11:00 AM VA-TOBACCO FORMER USER [place] [facility] [facility] [place] [facility] Tobacco Use History This section includes a history of the smoking, or tobacco-related health factors, that were collected on or before the date of the Encounter. The data comes from the [place] facility where the Encounter took place. Date/Time Smoking Status/Tobac co Use Comment Facility Mar 31, 2023 11:00 AM VA-TOBACCO QUIT 1 TO < 5 YRS [place] [facility] [place] [facility] Mar 25, 2022 10:30 AM VA-TOBACCO NEVER USED [place] [facility] [place] [facility] Mar 19, 2021 02:00 PM VA-TOBACCO FORMER USER [place] [facility] [place] [facility] Mar 19, 2021 02:00 PM VA-TOBACCO QUIT < 1 YEAR [place] [facility] [place] [facility] Sep 20, 2018 11:24 AM VA-TOBACCO USE DECLINED TO ANSWER [place] [facility] [place] [facility] Oct 21, 2017 08:13 AM QUIT TOBACCO USE IN PAST YEAR [place] [facility] [place] [facility] Dec 30, 2016 08:28 AM QUIT TOBACCO USE 1-7 YEARS AGO [place] [facility] [place] [facility] Jun 04, 2016 08:43 AM QUIT TOBACCO USE 1-7 YEARS AGO [place] [facility] [place] [facility] May 17, 2015 08:45 AM QUIT TOBACCO USE 1-7 YEARS AGO quit 2 years ago. [place] [facility] [place] [facility] Jun 07, 2014 09:25 AM QUIT TOBACCO USE 1-7 YEARS AGO [place] [facility] [place] [facility] November 30, 2013 08:44 AM QUIT TOBACCO USE IN PAST YEAR [place] [facility] [place] [facility] May 22, 2013 10:10 AM QUIT TOBACCO USE IN PAST YEAR [place] [facility] [place] [facility] December 01, 2012 01:54 PM QUIT TOBACCO USE IN [facility]ST [facility] [place] [facility] Jun 07, 2012 08:16 AM V1-PT DECLINES TOBACCO CESSATION MEDS [place] [facility] [place] [facility] Jun 07, 2012 08:16 AM V1-PT THINKING ABOUT QUIT TOBACCO USE [facility] [place] [facility] Jan 05, 2012 09:00 AM CURRENT SMOKER intermittenly [facility] [place] [facility] Jan 05, 2012 09:00 AM V1-PT DECLINES REF TO TOBACCO CESS PRGM [facility] [place] [facility] Jan 05, 2012 09:00 AM V1-PT DECLINES TOBACCO CESSATION MEDS [facility] [place] [facility] Jan 05, 2012 09:00 AM V1-PT THINKING ABOUT QUIT TOBACCO USE [facility] [place] [facility] Feb 17, 2011 09:52 AM V1-PT DECLINES TOBACCO CESSATION MEDS [place] [facility] [place] [facility] Feb 17, 2011 09:52 AM V1-PT THINKING ABOUT QUIT TOBACCO USE [place] [facility] [place] [facility] Aug 13, 2010 11:31 AM QUIT TOBACCO USE IN PAST YEAR [facility] [place] [facility] Feb 19, 2010 01:26 PM QUIT TOBACCO USE IN PAST YEAR [facility] Sep 13, 2009 11:04 AM QUIT TOBACCO USE IN PAST YEAR [facility] Feb 05, 2009 08:29 AM V1-PT DECLINES REF TO TOBACCO CESS PRGM [facility] Feb 05, 2009 08:29 AM V1-PT DECLINES TOBACCO CESSATION MEDS [facility] Feb 05, 2009 08:29 AM V1-PT THINKING ABOUT QUIT TOBACCO USE [facility] Aug 22, 2008 09:04 AM QUIT TOBACCO USE IN PAST YEAR [facility] Mar 12, 2008 10:40 [...] AUTHOR: LORI QUEVEDO COSIGNER: URGENCY: STATUS: COMPLETED Division Operations Manager spoke with vet to schedule follow up appt. Appt scheduled. Vet requested cb from provider as soon as possible. Phone number on file confirmed. /divya/ LORI QUEVEDO ADVANCED PRESSURE TESTER OPERATOR Signed: 02/09/2024 09:58 Receipt Acknowledged By: 02/09/2024 12:09 /divya/ Gal Solorio MD STAFF PHYSICIAN 02/09/2024 12:19 /divya/ ERIC DOUGLAS CLINICAL PHARMACIST PRACTITIONER, PAIN 02/09/2024 12:19 /divya/ ERIC DOUGLAS CLINICAL PHARMACIST PRACTITIONER, PAIN for JESSIKA CORONEL 02/09/2024 12:35 /es/ URBANO FOSTER, PHARM.D CLINICAL PHARMACIST PRACTITIONER LORI QUEVEDO [facility]
--- OUTSIDE RECORDS SUMMARY | 2024-07-25 11:35 | XMS_ITS | Encounter Summary ---
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 Organization [place] Address [address] [place] [id number] Care Team Providers Care Medical Specialist Name Role Phone ROMANA CASTILLO Primary [...] Patient's Relationship to Policy Garcia [facility] (MEDICAID) MEDICAID [facility] May 14, 2009 [id number] SAMPLE,ROCCO MOORE PATIENT [facility] MEDICAID [facility] May 14, 2009 [id number] SAMPLE,ROCCO MOORE PATIENT MEDICAID MEDICAID [facility] Jul 26, 2018 MEDICAI D [id number] SAMPLE,ROCCO MOORE PATIENT MEDICARE (WNR) MEDICARE (M) PART A November 24, 2015 PART A [id number] SAMPLE,ROCCO MOORE PATIENT MEDICARE (WNR) MEDICARE (M) PART B November 24, 2015 PART B [id number] SAMPLE,ROCCO MOORE PATIENT Selected Encounter This section includes the information on record at [facility] for the Encounter. Date/Time Encounter Type Encounter Description Reason Pro vider Source IHE Encounter Template Text not used by VA
--- OUTSIDE RECORDS SUMMARY | 2024-07-25 11:35 | XMS_ITS ---
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 Address [address] [place] [address] Care Team Providers Care Sports Management Intern Name Role Phone ROMANA CASTILLO Primary Care [...] Garcia's Name Patient's Relationship to Policy Garcia [facility] (MEDICAID) MEDICAID [place] DEPT HUMAN [facility] May 14, 2009 [id number] SAMPLE,ROCCO MOORE PATIENT [facility] May 14, 2009 [id number] SAMPLE,ROCCO MOORE PATIENT MEDICAID MEDICAID [facility] Jul 26, 2018 MEDICAI D [id number] SAMPLE,ROCCO MOORE PATIENT MEDICARE (WNR) MEDICARE (M) PART A November 24, 2015 PART A [id number] SAMPLE,ROCCO MOORE PATIENT MEDICARE (WNR) MEDICARE (M) PART B November 24, 2015 PART B [id number] SAMPLE,ROCCO MOORE PATIENT Selected Encounter This [...] AMBULATORY - PSYCHIATRY [place] [facility] [facility] Mar 06, 2024 09:00 AM AMBULATORY - MEDICINE [place] C [facility] [facility] Apr 03, 2024 11:30 AM AMBULATORY - MEDICINE [place] C [facility] [place] [facility] Apr 13, 2024 11:00 AM AMBULATORY - PSYCHIATRY [place] [facility] [place] [facility] Apr 13, 2024 02:00 PM AMBULATORY - MEDICINE [place] C [facility] [facility] Apr 13, 2024 03:00 PM AMBULATORY - MEDICINE [place] C [facility] [facility] May 02, 2024 11:00 AM AMBULATORY - MEDICINE [place] C [facility] [place] [facility] May 15, 2024 11:30 AM AMBULATORY - PSYCHIATRY [place] [facility] [place] [facility] May 25, 2024 11:30 AM AMBULATORY - MEDICINE IA C [facility] [place] [facility] Jul 13, 2024 10:00 AM AMBULATORY - MEDICINE IA C [facility] [facility] Aug 03, 2024 01:00 PM AMBULATORY - PSYCHIATRY [place] [facility] [facility] Active, Pending, and Scheduled Orders This section includes a listing of several types of active, pending, and scheduled orders, including clinic medications orders, diagnostic test orders, procedure orders and consult orders; where the start date of the order is 45 days before the date of the Encounter or 45 days after the date of theEncounter. The data comes from all [place] treatment facilities. Test Date/Time Test Type Test Details Facility Name Jan 17, 2024 12:00 AM Laboratory - Chemistry Order BASIC METABOLIC PANEL (non-fasting) BLOOD (SST-SERUM) [facility] Jan 17, 2024 12:00 AM Laboratory - Chemistry Order LIPID PANEL, NON FASTING BLOOD (SST-SERUM) [facility] Jan 17, 2024 12:00 AM Laboratory - Chemistry Order LIVER FUNCTION BLOOD (SST-SERUM) [facility] Jan 17, 2024 12:00 AM Laboratory - Chemistry Order TSH BLOOD (SST-SERUM) [facility] Jan 17, 2024 12:00 AM Laboratory - Chemistry Order MICROALBUMIN CREATININE RATIO PANEL URINE (RANDOM) [facility] Lab Results: +/- 30 days of the encounter This section includes the Chemistry and Hematology Lab Results on record with [place] for the patient. Radiology Reports and Pathology Reports are provided separately, in subsequent sections. Lab Results This section contains the Chemistry/Hematology Results that were resulted 30 days before or 30 daysafter the date of the Encounter. Date/Time Source Result Type Result - Unit Interpretation Reference Range Comment Mar 06, 2024 09:56 AM [facility] VITAMIN D (25-[place]) Specimen Type: SERUM No comment entered. Ordering Provider: Sherrie CASTILLO Report Released Date/Time: Mar 06, 2024 09:36 AM Reporting Lab: [address] [address] Performing Lab: [address] [address] VITAMIN D (25-[place]) 20 ng/mL 20-50 Mar 06, 2024 09:56 AM [facility] IRON & TIBC PANEL Specimen Type: SERUM No comment entered. Ordering Provider: Sherrie CASTILLO Report Released Date/Time: Mar 06, 2024 09:36 AM Reporting Lab: [address] [address] Performing Lab: [place] [facility] [facility] [address] [facility] [address] TIBC 364 ug/dL 204-475 IRON 36 ug/dL L 40-160 Transferrin Saturation 9.9 L 20.0-50.0 Mar 06, 2024 09:56 AM [place] [facility] [place] [facility] FERRITIN Specimen Type: SERUM No comment entered. Ordering Provider: Sherrie CASTILLO Report Released Date/Time: Mar 06, 2024 09:36 AM Reporting Lab: [place] [facility] [place] [facility] [address] [facility] [address] Performing Lab: [place] [facility] [place] [address] [address] FERRITIN 52 ng/mL 10-200 Mar 06, 2024 09:56 AM [facility] [place] [facility] HEMOGLOBIN A1C PANEL Specimen Type: [...] Mar 06, 2024 09:36 AM Reporting Lab: [place] [facility] [place] [address] [address] Performing Lab: [place] [facility] [place] [address] [address] HEMOGLOBIN A1C 5.4 4.0-5.6 Mar 06, 2024 09:56 AM [facility] [place] [facility] MICROALBUMIN CREATININE RATIO PANEL Specimen Type: URINE No comment entered. Ordering Provider: Sherrie CASTILLO Report Released Date/Time: Mar 06, 2024 09:36 AM Reporting Lab: [place] [facility] [place] [address] [address] Performing Lab: [place] [facility] [place] [address] [address] MICROALBUMIN/C REATININE RATIO 251.1 mg/g H 0-29.9 MICROALBUMIN,Q UANTITATIVE 11.2 mg/dL RR UNAVAIL CREATININE URINE 44.60 mg/dL Mar 06, 2024 09:56 AM [facility] BASIC METABOLIC PANEL (non-fasting) Specimen Type: SERUM No comment entered. Ordering Provider: Sherrie CASTILLO Report Released Date/Time: Mar 06, 2024 09:36 AM Reporting Lab: [facility] [address] [facility] [address] Performing Lab: [facility] [address] [facility] [address] UREA NITROGEN 28 mg/dL H 7-25 GLUCOSE 130 mg/dL H 65-100 SODIUM 142 mmol/L 135-145 POTASSIUM 4.8 mmol/L 3.5-5.0 CHLORIDE 97 mmol/L L 100-110 CO2 33 meq/L H 20-30 CREATININE, Serum 1.00 mg/dL 0.50-1.40 eGFR(CKD-EPI 2020) 63 mL/min >60 Mar 06, 2024 09:56 AM [facility] CBC AND DIFF (AUTO) Specimen Type: BLOOD No comment entered. Ordering Provider: Sherrie CASTILLO Report Released Date/Time: Mar 06, 2024 09:36 AM Reporting Lab: [facility] [address] [facility] [address] Performing Lab: [facility] [address] [facility] [address] WBC 12.33 10*3/uL H 4.50-11.00 RBC 3.92 [...] took place. Date/Time Current Smoking Status Comment [facility] Mar 31, 2023 11:00 AM [facility] Tobacco Use History This section includes a history of the smoking, or tobacco-related health factors, that were collected on or before the date of the Encounter. The data comes from the [place] facility where the Encounter took place. Date/Time Smoking Status/Tobac co Use Comment Facility Mar 31, 2023 11:00 AM VA-TOBACCO QUIT 1 TO < 5 YRS [place] [facility] [facility] Mar 25, 2022 10:30 AM VA-TOBACCO NEVER USED [place] [facility] [facility] Mar 19, 2021 02:00 PM VA-TOBACCO FORMER USER [place] [facility] [facility] Mar 19, 2021 02:00 PM VA-TOBACCO QUIT < 1 YEAR [place] [facility] [facility] [facility] Sep 20, 2018 11:24 AM VA-TOBACCO USE [facility] [place] [facility] Oct 21, 2017 08:13 AM QUIT TOBACCO USE IN PAST YEAR [place] [facility] [place] [facility] Dec 30, 2016 08:28 AM QUIT TOBACCO USE 1-7 YEARS AGO [place] [facility] [facility] Jun 04, 2016 08:43 AM QUIT TOBACCO USE 1-7 YEARS AGO [place] [facility] [place] [facility] May 17, 2015 08:45 AM QUIT TOBACCO USE 1-7 YEARS AGO quit 2 years ago. [place] [facility] [place] [facility] Jun 07, 2014 09:25 AM QUIT TOBACCO USE 1-7 YEARS AGO [place] [facility] [facility] November 30, 2013 08:44 AM QUIT TOBACCO USE IN PAST YEAR [facility] [place] [facility] May 22, 2013 10:10 AM QUIT TOBACCO USE IN PAST YEAR [facility] [place] [facility] [facility] December 01, 2012 01:54 PM QUIT TOBACCO USE IN PAST YEAR [facility] [place] Jun 07, 2012 08:16 AM V1-PT DECLINES TOBACCO CESSATION MEDS [facility] Jun 07, 2012 08:16 AM V1-PT THINKING ABOUT QUIT TOBACCO USE [facility] Jan 05, 2012 09:00 AM CURRENT SMOKER intermittenly [facility] Jan 05, 2012 09:00 AM V1-PT DECLINES REF TO TOBACCO CESS [facility] [place] [facility] Jan 05, 2012 09:00 AM V1-PT DECLINES TOBACCO CESSATION [facility] [place] [facility] Jan 05, 2012 09:00 AM V1-PT THINKING ABOUT QUIT TOBACCO USE [facility] [place] [facility] Feb 17, 2011 09:52 AM V1-PT DECLINES TOBACCO CESSATION [facility] [place] [facility] Feb 17, 2011 09:52 AM V1-PT THINKING ABOUT QUIT TOBACCO USE [facility] [place] [facility] Aug 13, 2010 11:31 AM QUIT TOBACCO USE IN PAST YEAR [facility] [place] [facility] Feb 19, 2010 01:26 PM QUIT TOBACCO USE IN PAST YEAR [facility] Sep 13, 2009 11:04 AM QUIT TOBACCO USE IN PAST YEAR [facility] Feb 05, 2009 08:29 AM V1-PT DECLINES REF TO TOBACCO CESS [facility] Feb 05, 2009 08:29 AM V1-PT DECLINES TOBACCO CESSATION MEDS [facility] Feb 05, 2009 08:29 AM V1-PT THINKING ABOUT QUIT TOBACCO USE [facility] Aug 22, 2008 09:04 AM QUIT TOBACCO USE IN PAST YEAR [facility] Mar 12, 2008 10:40 AM V1-PT DECLINES REF TO TOBACCO CESS PRGM [facility] Mar 12, 2008 10:40 AM V1-PT DECLINES TOBACCO CESSATION MEDS [facility] Mar 12, 2008 10:40 AM V1-PT NOT INTERESTED IN QUIT TOBACCO USE [facility] Mar 08, 2008 09:37 AM CURRENT SMOKER smokes one pack a day for about 10 years ago. [facility] Encounter Notes: All associated encounter [...] Patient Name: REID QUEZADA Patient Primary Phone: [phone] Patient Primary Address: [address] [place] [address] Patient : 1960 Patient Age: 64 Current Location: [facility] Call Back Number: [phone] Caller/Recipient Relation to Patient: Caregiver Caller Name: [employer] Administrative Administrative Note Reason: Home Health / Residential Administrative Note Comments: [employer], calling with [facility], requests a call back REILLY in regard to vet leaving [facility] ER AMA with severe kidney failure and needs a follow up with her PCP urgently. /divya/ DIANA KONG ADVANCED BILLING ASSISTANT Signed: 02/08/2024 12:40 Receipt Acknowledged By: 02/08/2024 13:16 /divya/ AKOSUA GREEN, LULI, RN, CNL PRIMARY CARE TEAM NURSE 02/08/2024 13:08 /divya/ Fabiola Hooker RN Primary Care Staff Nurse 02/08/2024 ADDENDUM STATUS: COMPLETED See nurse triage note- Vet agreed to go back to ER . /divya/ Fabiola Hooker RN Primary Care Staff Nurse Signed: 02/08/2024 13:08 DIANA KONG CNTRL [facility]
--- OUTSIDE RECORDS SUMMARY | 2024-07-25 11:35 | XMS_ITS ---
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 Organization [facility] [place] Address [address] [place] [address] Care Team Providers Care Disaster Or Damage Control Specialist Name Role Phone ROMANA CASTILLO Primary [...] Garcia's Name Patient's Relationship to Policy Garcia [facility] (MEDICAID) MEDICAID [place] DEPT [facility]UM[facility] May 14, 2009 [id number] SAMPLE,ROCCO MOORE PATIENT [facility] May 14, 2009 [id number] SAMPLE,ROCCO MOORE PATIENT MEDICAID MEDICAID [facility] Jul 26, 2018 MEDICAI D [id number] SAMPLE,ROCCO MOORE PATIENT MEDICARE (WNR) MEDICARE (M) PART A November 24, 2015 PART A [id number] SAMPLE,ROCCO MOORE PATIENT MEDICARE (WNR) MEDICARE (M) PART B November 24, 2015 PART B [id number] SAMPLE,ROCCO MOORE PATIENT Selected Encounter This [...] AMBULATORY - PSYCHIATRY [place] [facility] [place] [facility] Mar 06, 2024 09:00 AM AMBULATORY - MEDICINE [place] C [place] [facility] Apr 03, 2024 11:30 AM AMBULATORY - MEDICINE [place] C [place] [facility] Apr 13, 2024 11:00 AM AMBULATORY - PSYCHIATRY [place] [facility] [place] [facility] Apr 13, 2024 02:00 PM AMBULATORY - MEDICINE [place] C [place] [facility] Apr 13, 2024 03:00 PM AMBULATORY - MEDICINE [place] C [place] [facility] May 02, 2024 11:00 AM AMBULATORY - MEDICINE [place] C [place] [facility] May 15, 2024 11:30 AM AMBULATORY - PSYCHIATRY [place] [facility] [place] [facility] May 25, 2024 11:30 AM AMBULATORY - MEDICINE [place] C [place] [facility] Jul 13, 2024 10:00 AM AMBULATORY - MEDICINE [place] C [facility] [place] [facility] Aug 03, 2024 01:00 PM AMBULATORY - PSYCHIATRY [place] [facility] [place] [facility] Active, Pending, and Scheduled Orders This section includes a listing of several types of active, pending, and scheduled orders, including clinic medications orders, diagnostic test orders, procedure orders and consult orders; where the start date of the order is 45 days before the date of the Encounter or 45 days after the date of theEncounter. The data comes from all [place] treatment facilities. Test Date/Time Test Type Test Details Facility Name Jan 17, 2024 12:00 AM Laboratory - Chemistry Order BASIC METABOLIC PANEL (non-fasting) BLOOD (SST-SERUM) [facility] Jan 17, 2024 12:00 AM Laboratory - Chemistry Order LIPID PANEL, NON FASTING BLOOD (SST-SERUM) [facility] Jan 17, 2024 12:00 AM Laboratory - Chemistry Order LIVER FUNCTION BLOOD (SST-SERUM) [facility] Jan 17, 2024 12:00 AM Laboratory - Chemistry Order TSH BLOOD (SST-SERUM) [facility] Jan 17, 2024 12:00 AM Laboratory - Chemistry Order MICROALBUMIN CREATININE RATIO PANEL URINE (RANDOM) [facility] Lab Results: +/- 30 days of [...] Mar 06, 2024 09:36 AM Reporting Lab: [address] [address] Performing Lab: [address] [address] VITAMIN D (25-OH) 20 ng/mL 20-50 Mar 06, 2024 09:56 AM [facility] IRON & TIBC PANEL Specimen Type: SERUM No comment entered. Ordering Provider: Sherrie CASTILLO Report Released Date/Time: Mar 06, 2024 09:36 AM Reporting Lab: [address] [address] Performing Lab: [place] [facility] [place] [facility] [address] [facility] [address] TIBC 364 ug/dL 204-475 IRON 36 ug/dL L 40-160 Transferrin Saturation 9.9 L 20.0-50.0 Mar 06, 2024 09:56 AM [place] [facility] [place] [facility] FERRITIN Specimen Type: SERUM No comment entered. Ordering Provider: Sherrie CASTILLO Report Released Date/Time: Mar 06, 2024 09:36 AM Reporting Lab: [place] [facility] [place] [facility] [address] [facility] [address] Performing Lab: [place] [address] [address] FERRITIN 52 ng/mL 10-200 Mar 06, 2024 09:[address] [facility] [place] [facility] HEMOGLOBIN A1C PANEL Specimen Type: [...] Mar 06, 2024 09:36 AM Reporting Lab: [place] [place] [address] [address] Performing Lab: [place] [place] [address] [address] HEMOGLOBIN A1C 5.4 4.0-5.6 Mar 06, 2024 09:[address] [facility] [place] [facility] MICROALBUMIN CREATININE RATIO PANEL Specimen Type: URINE No comment entered. Ordering Provider: Sherrie CASTILLO Report Released Date/Time: Mar 06, 2024 09:36 AM Reporting Lab: [place] [facility] [place] [address] [address] Performing Lab: [place] [place] [address] [address] MICROALBUMIN/C REATININE RATIO 251.1 mg/g H 0-29.9 MICROALBUMIN,Q UANTITATIVE 11.2 mg/dL RR UNAVAIL CREATININE URINE 44.60 mg/dL Mar 06, 2024 09:56 AM [facility] BASIC METABOLIC PANEL (non-fasting) Specimen Type: SERUM No comment entered. Ordering Provider: Sherrie CASTILLO Report Released Date/Time: Mar 06, 2024 09:36 AM Reporting Lab: [facility] [address] [facility] [address] Performing Lab: [facility] [address] [facility] [address] UREA NITROGEN 28 mg/dL H 7-25 GLUCOSE [...] [address] [facility] [address] Performing Lab: [facility] [address] [facility] [address] WBC 12.33 10*3/uL H 4.50-11.00 RBC 3.92 [...] place. Date/Time Current Smoking Status Comment [facility] Mar 31, 2023 11:00 AM VA-TOBACCO [facility] Tobacco Use History This section includes a history of the smoking, or tobacco-related health factors, that were collected on or before the date of the Encounter. The data comes from the [place] facility where the Encounter took place. Date/Time Smoking Status/Tobac co Use Comment Facility Mar 31, 2023 11:00 AM VA-TOBACCO QUIT 1 TO < 5 YRS [place] [facility] [place] [facility] Mar 25, 2022 10:30 AM VA-TOBACCO NEVER USED [place] [facility] [place] [facility] Mar 19, 2021 02:00 PM VA-TOBACCO FORMER USER [place] [facility] [place] [facility] Mar 19, 2021 02:00 PM VA-TOBACCO QUIT < 1 YEAR [place] [facility] [place] [facility] Sep 20, 2018 11:24 AM VA-TOBACCO [facility] [place] [facility] Oct 21, 2017 08:13 AM QUIT TOBACCO USE IN PAST YEAR [place] [facility] [place] [facility] Dec 30, 2016 08:28 AM QUIT TOBACCO USE 1-7 YEARS AGO [place] [facility] [place] [facility] Jun 04, 2016 08:43 AM QUIT TOBACCO USE 1-7 YEARS AGO [place] [facility] [place] [facility] May 17, 2015 08:45 AM QUIT TOBACCO USE 1-7 YEARS AGO quit 2 years ago. [place] [facility] [facility] [place] [facility] Jun 07, 2014 09:25 AM QUIT TOBACCO USE 1-7 YEARS AGO [place] [facility] [place] [facility] November 30, 2013 08:44 AM QUIT TOBACCO USE IN PAST YEAR [facility] [place] [facility] May 22, 2013 10:10 AM QUIT TOBACCO USE IN PAST YEAR [facility] [place] December 01, 2012 01:54 PM QUIT TOBACCO USE IN PAST YEAR [facility] [place] [facility] Jun 07, 2012 08:16 AM V1-PT DECLINES TOBACCO CESSATION MEDS [facility] [place] Jun 07, 2012 08:16 AM V1-PT THINKING ABOUT QUIT TOBACCO USE [facility] Jan 05, 2012 09:00 AM CURRENT SMOKER intermittenly [facility] Jan 05, 2012 09:00 AM V1-PT DECLINES REF TO TOBACCO CESS [facility] [place] [facility] Jan 05, 2012 09:00 AM V1-PT DECLINES TOBACCO CESSATION [facility] [place] [facility] Jan 05, 2012 09:00 AM V1-PT THINKING ABOUT QUIT TOBACCO USE [facility] [place] [facility] Feb 17, 2011 09:52 AM V1-PT DECLINES TOBACCO CESSATION [facility] [place] [facility] Feb 17, 2011 09:52 AM V1-PT THINKING ABOUT QUIT TOBACCO [facility] [place] [facility] Aug 13, 2010 11:31 AM QUIT TOBACCO USE IN PAST YEAR [facility] [place] [facility] Feb 19, 2010 01:26 PM QUIT TOBACCO [facility] Sep 13, 2009 11:04 AM QUIT TOBACCO USE IN [facility]ST [facility]AR [facility] Feb 05, 2009 08:29 AM V1-PT DECLINES REF TO TOBACCO CESS [facility] Feb 05, 2009 08:29 AM V1-PT DECLINES TOBACCO CESSATION [facility] Feb 05, 2009 08:29 AM V1-PT THINKING ABOUT QUIT TOBACCO USE [facility] Aug 22, 2008 09:04 AM QUIT TOBACCO USE IN PAST YEAR [facility] Mar 12, 2008 [...] Patient Name: REID QUEZADA Patient Primary Phone: [phone] Patient Primary Address: [address] [place] [address] Patient : 1960 Patient Age: 64 Caller/Recipient Relation to Patient: Other If Other Describe Relation to Patient: [facility] Caller Name: Olga Administrative Administrative Note Reason: Home Health / Correction Administrative Note Comments: Olga from [facility] called requesting PACT team call back the facility to approve home health orders. Please call back at [phone] opt 2 /es/ [facility] WHARTON [facility] Signed: 02/11/2024 13:58 Receipt Acknowledged By: 02/18/2024 12:43 /es/ OLGA GREEN, MSN, RN, CNL PRIMARY CARE TEAM NURSE 02/18/2024 12:42 /es/ Fabiola Hooker, veterinary radiologist Staff Nurse [facility]
--- OUTSIDE RECORDS SUMMARY | 2024-07-25 11:35 | XMS_ITS | Encounter Summary ---
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 Organization [place] Address [address] [place] [id number] Care Team Providers Care Hose Turner Name Role Phone ROMANA CASTILLO Primary Care [...] to Policy Garcia [facility] (MEDICAID) MEDICAID [facility] May 14, 2009 [id number] SAMPLE,ROCCO MOORE PATIENT [facility] MEDICAID [facility] May 14, 2009 [id number] SAMPLE,ROCCO MOORE PATIENT MEDICAID MEDICAID [facility] Jul 26, 2018 MEDICAI D [id number] SAMPLE,ROCCO MOORE PATIENT MEDICARE (WNR) MEDICARE (M) PART A November 24, 2015 PART A [id number] SAMPLE,ROCCO MOORE PATIENT MEDICARE (WNR) MEDICARE (M) PART B November 24, 2015 PART B [id number] ROCCO QUEZADA PATIENT Selected Encounter This [...] 14, 2024 11:00 AM AMBULATORY - PSYCHIATRY [place] [facility] [place] [place] [facility] Mar 06, 2024 09:00 AM AMBULATORY - MEDICINE MA C NTRL [place] [facility] Apr 03, 2024 11:30 AM AMBULATORY - MEDICINE MA C NTRL [place] [facility] Apr 13, 2024 11:00 AM AMBULATORY - PSYCHIATRY [place] [facility] [place] [facility] Apr 13, 2024 02:00 PM AMBULATORY - MEDICINE MA C NTRL [place] [facility] Apr 13, 2024 03:00 PM AMBULATORY - MEDICINE MA C NTRL [place] [facility] May 02, 2024 11:00 AM AMBULATORY - MEDICINE MA C NTRL [place] [facility] May 15, 2024 11:30 AM AMBULATORY - PSYCHIATRY [place] [facility] [place] [facility] May 25, 2024 11:30 AM AMBULATORY - MEDICINE MA C NTRL [place] [facility] Jul 13, 2024 10:00 AM AMBULATORY - MEDICINE MA C NTRL [place] [facility] Aug 03, 2024 01:00 PM AMBULATORY - PSYCHIATRY [place] [facility] [place] [facility] Active, Pending, and Scheduled Orders This section includes a listing of several types of active, pending, and scheduled orders, including clinic medications orders, diagnostic test orders, procedure orders and consult orders; where the start date of the order is 45 days before the date of the Encounter or 45 days after the date of theEncounter. The data comes from all [place] treatment facilities. Test Date/Time Test Type Test Details Facility Name Jan 17, 2024 12:00 AM Laboratory - Chemistry Order BASIC METABOLIC PANEL (non-fasting) BLOOD (SST-SERUM) [facility] [place] [facility] Jan 17, 2024 12:00 AM Laboratory - Chemistry Order LIPID PANEL, NON FASTING BLOOD (SST-SERUM) [facility] Jan 17, 2024 12:00 AM Laboratory - Chemistry Order LIVER FUNCTION BLOOD (SST-SERUM) [facility] Jan 17, 2024 12:00 AM Laboratory - Chemistry Order TSH BLOOD (SST-SERUM) [facility] Jan 17, 2024 12:00 AM Laboratory - Chemistry Order MICROALBUMIN CREATININE RATIO PANEL URINE (RANDOM) [facility] Social History: Smoking Status [...] took place. Date/Time Current Smoking Status Comment [facility] Mar 31, 2023 11:00 AM VA-TOBACCO [facility] Tobacco [facility] History This [...] < 5 YRS [place] [facility] [place] [facility] Mar 25, 2022 10:30 AM VA-TOBACCO NEVER USED MA CNTRL [place] [facility] Mar 19, 2021 02:00 PM VA-TOBACCO FORMER USER [place] CNTRL [place] [facility] Mar 19, 2021 02:00 PM VA-TOBACCO QUIT < 1 YEAR [place] [facility]L [place] [facility] Sep 20, 2018 11:24 AM VA-TOBACCO USE DECLINED TO ANSWER [place] [facility] [place] [facility] Oct 21, 2017 08:13 AM QUIT TOBACCO USE IN PAST YEAR [place] [facility]TR [place] [facility] Dec 30, 2016 08:28 AM QUIT TOBACCO USE 1-7 YEARS AGO MA CNTR [place] [facility] Jun 04, 2016 08:43 AM QUIT TOBACCO USE 1-7 YEARS AGO [facility] [place] [facility] May 17, 2015 08:45 AM QUIT TOBACCO USE 1-7 YEARS AGO quit 2 years ago. [place] [facility]TR [facility] [facility] Jun 07, 2014 09:25 AM QUIT TOBACCO USE 1-7 YEARS AGO [place] CNTR [place] [facility] November 30, 2013 08:44 AM QUIT TOBACCO USE IN PAST YEAR MA CNTR [place] [facility] May 22, 2013 10:10 AM QUIT TOBACCO USE IN PAST YEAR MA [facility]TR [facility] [place] [facility] December 01, 2012 01:54 PM QUIT TOBACCO USE IN PAST YEAR [facility] [place] [facility] Jun 07, 2012 08:16 AM V1-PT DECLINES TOBACCO CESSATION [facility] [place] [facility] Jun 07, 2012 08:16 AM V1-PT THINKING ABOUT QUIT TOBACCO USE [facility] [place] [facility] Jan 05, 2012 09:00 AM CURRENT SMOKER intermittenly [facility] [place] [facility] [facility] Jan 05, 2012 09:00 AM V1-PT DECLINES REF TO TOBACCO CESS PRGM [facility] [place] [facility] Jan 05, 2012 09:00 AM V1-PT DECLINES TOBACCO CESSATION [facility] [place] [facility] Jan 05, 2012 09:00 AM V1-PT THINKING ABOUT QUIT [facility]BACCO [facility] [place] [facility] Feb 17, 2011 09:52 AM V1-PT DECLINES TOBACCO CESSATION [facility] [place] [facility] Feb 17, 2011 09:52 AM V1-PT THINKING ABOUT QUIT TOBACCO USE MA CNTR [place] [facility] Aug 13, 2010 11:31 AM QUIT TOBACCO USE IN PAST YEAR [facility] [place] [facility] Feb 19, 2010 01:26 PM QUIT TOBACCO USE IN PAST YEAR [facility] [place] [facility] Sep 13, 2009 11:04 AM QUIT TOBACCO USE IN PAST YEAR [facility] Feb 05, 2009 08:29 AM V1-PT DECLINES REF TO TOBACCO CESS PRGM [facility] Feb 05, 2009 08:29 AM V1-PT DECLINES TOBACCO CESSATION MEDS [facility] Feb 05, 2009 08:29 AM V1-PT THINKING ABOUT QUIT TOBACCO USE [facility] Aug 22, 2008 09:04 AM QUIT TOBACCO USE IN PAST YEAR [facility] Mar 12, 2008 10:40 AM V1-PT DECLINES REF TO TOBACCO CESS PRGM [facility] Mar 12, 2008 10:40 AM V1-PT DECLINES TOBACCO CESSATION MEDS [facility] Mar 12, 2008 10:40 AM V1-PT NOT INTERESTED IN QUIT TOBACCO USE [facility] Mar 08, 2008 09:37 AM CURRENT SMOKER smokes one pack a day for about 10 years ago. [facility] Encounter Notes: All associated encounter notes This section contains the clinical notes associated to the Encounter. Date/Time Encounter Note(s) Provider Source Feb 03, 2024 04:45 PM CLERICAL NOTE: LOCAL TITLE: APPOINTMENT NO SHOW STANDARD TITLE: CLERICAL NOTE DATE OF NOTE: FEB 03, 2024@16:45 ENTRY DATE: FEB 03, 2024@16:45:30 AUTHOR: GEORGE FLORES SA COSIGNER: URGENCY: STATUS: COMPLETED Patient Name: REID QUEZADA Patient SSN: [id number] Date and time of Appointment No show [...] The is scheduled for 04/03/2024 at 11:30am. [place] aware and agreeable. Future Clinic Visits 02/14/2024 11:00 CWM/NO/VVC/KELSIE/SHRUTHI 04/03/2024 11:30 NHM/ENDOCRINE 08/24/2024 11:00 CWM/NO/PACT 4 /es/ GEORGE FLORES Signed: 02/03/2024 16:46 GEORGE FLORES MA CNTRL [facility]
--- OUTSIDE RECORDS SUMMARY | 2024-07-25 11:35 | XMS_ITS | Encounter Summary ---
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 [place] Organization Department of [place] Address [address] [place] [id number] Care Team Providers Care Skip Pit Worker Name Role Phone ROMANA CASTILLO Primary [...] Garcia's Name Patient's Relationship to Policy Garcia [facility] (MEDICAID) [facility] May 14, 2009 [id number] SAMPLE,ROCCO MOORE PATIENT [facility] MEDICAID [facility] May 14, 2009 [id number] SAMPLE,ROCCO MOORE PATIENT MEDICAID MEDICAID [facility] [place] Jul 26, 2018 MEDICAI D [id number] SAMPLE,ROCCO MOORE PATIENT MEDICARE (WNR) MEDICARE (M) PART A November 24, 2015 PART A [id number] SAMPLE,ROCCO MOORE PATIENT MEDICARE (WNR) MEDICARE (M) PART B November 24, 2015 PART B [id number] [id number] ROCCO QUEZADA PATIENT Selected Encounter This section includes the information on record at [place] for the Encounter. Date/Time Encounter Type Encounter Description Reason Pro vider Source Feb 11, 2024 11:28 AM Outpatient Encounter TELEPHONE CASE MANAGEMENT IHE Encounter Template Text not used by [place] Plan of Treatment: Future Appointments (+ 6 months) and Future Tests (+/- 45 days) The Plan of Treatment section includes future care activities for the patient from all [place] [facility]. This section includes future appointments and future orders which are active, pending or scheduled. Future Appointments This section includes appointments that were scheduled to occur 6 months from the date of the Encounter, up to a maximum of 20 appointments. The data comes from all [facility]. Appointment Date/Time Appointment Type Appointme nt Facility Name Feb 14, 2024 11:00 AM AMBULATORY - PSYCHIATRY [place] [facility] [place] [facility] Mar 06, 2024 09:00 AM AMBULATORY - MEDICINE DE C NTRL [place] [facility] Apr 03, 2024 11:30 AM AMBULATORY - MEDICINE DE C NTRL [place] [facility] Apr 13, 2024 11:00 AM AMBULATORY - PSYCHIATRY DE [facility]TRL [place] [facility] Apr 13, 2024 02:00 PM AMBULATORY - MEDICINE DE C NTRL [place] [facility] Apr 13, 2024 03:00 PM AMBULATORY - MEDICINE DE C NTRL [place] [facility] May 02, 2024 11:00 AM AMBULATORY - MEDICINE DE C NTRL [place] [facility] May 15, 2024 11:30 AM AMBULATORY - PSYCHIATRY DE [facility]TRL [place] [facility] May 25, 2024 11:30 AM AMBULATORY - MEDICINE DE C NTRL [place] [facility] Jul 13, 2024 10:00 AM AMBULATORY - MEDICINE DE C NTRL [place] [facility] Aug 03, 2024 01:00 PM AMBULATORY - PSYCHIATRY DE [facility]TRL [place] [facility] Active, Pending, and Scheduled Orders This section includes a listing of several types of active, pending, and scheduled orders, including clinic medications orders, diagnostic test orders, procedure orders and consult orders; where the start date of the order is 45 days before the date of the Encounter or 45 days after the date of theEncounter. The data comes from all [facility] facilities. Test Date/Time Test Type Test Details Facility Name Jan 17, 2024 12:00 AM Laboratory - Chemistry Order BASIC METABOLIC PANEL (non-fasting) BLOOD (SST-SERUM) [facility] Jan 17, 2024 12:00 AM Laboratory - Chemistry Order LIPID PANEL, NON FASTING BLOOD (SST-SERUM) [facility] Jan 17, 2024 12:00 AM Laboratory - Chemistry Order LIVER FUNCTION BLOOD (SST-SERUM) [facility] Jan 17, 2024 12:00 AM Laboratory - Chemistry Order TSH BLOOD (SST-SERUM) [facility] Jan 17, 2024 12:00 AM Laboratory - Chemistry Order MICROALBUMIN CREATININE RATIO PANEL URINE (RANDOM) [facility] Lab Results: +/- 30 days of [...] Range Comment Mar 06, 2024 09:56 AM [facility] IRON & TIBC PANEL Specimen Type: SERUM No comment entered. Ordering Provider: Sherrie CASTILLO Report Released Date/Time: Mar 06, 2024 09:36 AM Reporting Lab: [address] [address] Performing Lab: [address] [address] TIBC 364 ug/dL 204-475 IRON 36 ug/dL L 40-160 Transferrin Saturation 9.9 L 20.0-50.0 Mar 06, 2024 09:56 AM [facility] VITAMIN D (25-[place]) Specimen Type: SERUM No comment entered. Ordering Provider: Sherrie CASTILLO Report Released Date/Time: Mar 06, 2024 09:36 AM Reporting Lab: [address] [place] [address] Performing Lab: [place] [facility]TRL [place] [facility] [address] [address] VITAMIN D (25-[place]) 20 ng/mL 20-50 Mar 06, 2024 09:56 AM [facility] [place] [facility] FERRITIN Specimen Type: SERUM No comment entered. Ordering Provider: Sherrie CASTILLO Report Released Date/Time: Mar 06, 2024 09:36 AM Reporting Lab: [facility] [place] [facility] [address] [address] Performing Lab: [place]TR [place] [address] [address] FERRITIN 52 ng/mL 10-200 Mar 06, 2024 09:56 AM [facility] HEMOGLOBIN A1C PANEL Specimen Type: [...] Mar 06, 2024 09:36 AM Reporting Lab: [facility] [place] [facility] [address] [address] Performing Lab: [facility]N [facility] [address] [address] HEMOGLOBIN A1C 5.4 4.0-5.6 Mar 06, 2024 09:56 AM [facility] MICROALBUMIN CREATININE RATIO PANEL Specimen Type: URINE No comment entered. Ordering Provider: Sherrie CASTILLO Report Released Date/Time: Mar 06, 2024 09:36 AM Reporting Lab: [place] CNTR [place] [facility] [address] [address] Performing Lab: [facility] [place] [address] [address] MICROALBUMIN/C REATININE RATIO 251.1 mg/g H 0-29.9 MICROALBUMIN,Q UANTITATIVE 11.2 mg/dL RR UNAVAIL CREATININE URINE 44.60 mg/dL Mar 06, 2024 09:56 AM [facility] BASIC METABOLIC PANEL (non-fasting) Specimen Type: SERUM No comment entered. Ordering Provider: Sherrie CASTILLO Report Released Date/Time: Mar 06, 2024 09:36 AM Reporting Lab: [address] [address] Performing Lab: [address] [address] UREA NITROGEN 28 mg/dL H 7-25 GLUCOSE 130 mg/dL H 65-100 SODIUM 142 mmol/L 135-145 POTASSIUM 4.8 mmol/L 3.5-5.0 CHLORIDE 97 mmol/L L 100-110 CO2 33 meq/L H 20-30 CREATININE, Serum 1.00 mg/dL 0.50-1.40 eGFR(CKD-EPI 2020) 63 mL/min >60 Mar 06, 2024 09:56 AM [facility] CBC AND DIFF (AUTO) Specimen Type: BLOOD No comment entered. Ordering Provider: Sherrie CASTILLO Report Released Date/Time: Mar 06, 2024 09:36 AM Reporting Lab: [facility] [address] [address] Performing Lab: [address] [address] WBC 12.33 10*3/uL H 4.50-11.00 RBC 3.92 [...] Smoking Status Comment [facility] Mar 31, 2023 11:00 AM VA-TOBACCO FORMER USER [place] CNTRL [facility] [place] [facility] Tobacco Use History [...] < 5 YRS DE CNTRL [place] [facility] Mar 25, 2022 10:30 AM VA-TOBACCO NEVER USED DE CNTRL [place] [facility] Mar 19, 2021 02:00 PM VA-TOBACCO FORMER USER DE CNTRL [place] [facility] Mar 19, 2021 02:00 PM VA-TOBACCO QUIT < 1 YEAR DE CNTRL [place] [facility] Sep 20, 2018 11:24 AM VA-TOBACCO USE DECLINED TO ANSWER DE CNTRL [place] [facility] Oct 21, 2017 08:13 AM QUIT TOBACCO USE IN PAST YEAR [facility] [place] [facility] Dec 30, 2016 08:28 AM QUIT TOBACCO USE 1-7 YEARS AGO DE CNTR [place] [facility] Jun 04, 2016 08:43 AM QUIT TOBACCO USE 1-7 YEARS AGO DE CNTR [place] [facility] May 17, 2015 08:45 AM QUIT TOBACCO USE 1-7 YEARS AGO quit 2 years ago. [place] CNTR [place] [facility] Jun 07, 2014 09:25 AM QUIT TOBACCO USE 1-7 YEARS AGO DE CNTR [place] [facility] November 30, 2013 08:44 AM QUIT TOBACCO USE IN PAST YEAR DE CNTR [place] [facility] May 22, 2013 10:10 AM QUIT TOBACCO USE IN PAST YEAR [facility] [place] [facility] December 01, 2012 01:54 PM QUIT TOBACCO USE IN PAST YEAR [facility] [place] [facility] Jun 07, 2012 08:16 AM V1-PT DECLINES TOBACCO CESSATION MEDS [facility] [place] [facility] Jun 07, 2012 08:16 AM V1-PT THINKING ABOUT QUIT TOBACCO USE [facility] [place] [facility] Jan 05, 2012 09:00 AM CURRENT SMOKER intermittenly [facility] [place] [facility] Jan 05, 2012 09:00 AM V1-PT DECLINES REF TO TOBACCO CESS PRGM [facility] [place] [facility] Jan 05, 2012 09:00 AM V1-PT DECLINES TOBACCO CESSATION MEDS [facility] [place] [facility] Jan 05, 2012 09:00 AM V1-PT THINKING ABOUT QUIT TOBACCO USE [facility] [place] [facility] Feb 17, 2011 09:52 AM V1-PT DECLINES TOBACCO CESSATION MEDS DE CNTR [place] [facility] Feb 17, 2011 09:52 AM V1-PT THINKING ABOUT QUIT TOBACCO USE DE CNTR [place] [facility] Aug 13, 2010 11:31 AM QUIT TOBACCO USE IN PAST YEAR [facility] [place] [facility] Feb 19, 2010 01:26 PM QUIT TOBACCO USE IN PAST YEAR [facility] [place] [facility] Sep 13, 2009 11:04 AM QU[facility] Feb 05, 2009 08:29 AM V1-PT DECLINES REF TO TOBACCO CESS [facility] Feb 05, 2009 08:29 AM V1-PT DECLINES TOBACCO CESSATION [facility] Feb 05, 2009 08:29 AM V1-PT THINKING ABOUT QUIT [facility]BACCO [facility] Aug 22, 2008 09:04 AM QUIT TOBACCO USE IN PAST YEAR [facility] Mar 12, 2008 10:40 AM V1-PT DECLINES REF TO TOBACCO CESS [facility] Mar 12, 2008 10:40 AM V1-PT DECLINES TOBACCO CESSATION [facility]S [facility] Mar 12, 2008 10:40 AM V1-PT NOT INTERESTED IN QUIT TOBACCO USE [facility] Mar 08, 2008 09:37 AM CURRENT SMOKER smokes one pack a day for about 10 years ago. [facility] Encounter Notes: All associated encounter notes This section contains the clinical notes associated to the Encounter. Date/Time Encounter Note(s) Provider Source Feb 11, 2024 11:28 AM TRANSFER SUMMARIZA TION NOTE: LOCAL TITLE: BOW TACKER/OCC/HOSPITAL NOTIFICATION NOTE STANDARD TITLE: TRANSFER SUMMARIZATION NOTE DATE OF NOTE: FEB 11, 2024@11:28 ENTRY DATE: FEB 11, 2024@11:28:06 AUTHOR: YUE BOOGIE EXP COSIGNER: URGENCY: STATUS: COMPLETED hospitalized at [facility] on 02/08 for increased R leg wound drainiage. /divya/ YUE BOOGIE MSN,RN,CNL Physician'S Aide Signed: 02/11/2024 11:32 YUE BOOGIE [facility]
--- OUTSIDE RECORDS SUMMARY | 2024-07-25 11:35 | XMS_ITS | Encounter Summary ---
Author Name [facility] Organization [facility] Address [address] [place] [address] Care Team Providers Care Social Psychologist Name Role Phone ROMANA CASTILLO Primary Care [...] Policy Garcia [facility] (MEDICAID) [facility]ID [facility] May 14, 2009 [id number] SAMPLE,ROCCO MOORE PATIENT [facility] MEDICAID [facility] May 14, 2009 [id number] SAMPLE,ROCCO MOORE PATIENT MEDICAID MEDICAID [facility] Jul 26, 2018 MEDICAI D [id number] SAMPLE,ROCCO MOORE PATIENT MEDICARE (WNR) MEDICARE (M) PART A November 24, 2015 PART A [id number] SAMPLE,ROCCO MOORE PATIENT MEDICARE (WNR) MEDICARE (M) PART B November 24, 2015 PART B [id number] SAMPLE,ROCCO MOORE PATIENT Selected Encounter This [...] PRIMARY Anxiety disorder, unspecified BAYRON SCOTT MD [facility] [place] [facility] Feb 14, 2024 11:22 AM SECONDARY Insomnia, unspecified BAYRON SCOTT MD [facility] [place] [facility] Plan of Treatment: Future Appointments (+ 6 months) and Future Tests (+/- 45 days) The Plan of Treatment section includes future care activities for the patient from all [facility]. This section includes future appointments and future [...] - MEDICINE MD [facility] [place] [facility] Apr 03, 2024 11:30 AM AMBULATORY - MEDICINE MD [facility] [place] [facility] Apr 13, 2024 11:00 AM AMBULATORY - PSYCHIATRY [facility] [place] [facility] Apr 13, 2024 02:00 PM AMBULATORY - MEDICINE MD [facility] [place] [facility] Apr 13, 2024 03:00 PM AMBULATORY - MEDICINE MD [facility] [place] [facility] May 02, 2024 11:00 AM AMBULATORY - MEDICINE MD [facility] [place] [facility] May 15, 2024 11:30 AM AMBULATORY - PSYCHIATRY [facility] [place] [facility] May 25, 2024 11:30 AM AMBULATORY - MEDICINE MD [facility] [place] [facility] Jul 13, 2024 10:00 AM AMBULATORY - MEDICINE [facility] Aug 03, 2024 01:00 PM AMBULATORY - PSYCHIATRY [facility] Active, Pending, and Scheduled Orders This section includes a listing of several types of active, pending, and scheduled orders, including clinic medications orders, diagnostic test orders, procedure orders and consult orders; where the start date of the order is 45 days before the date of the Encounter or 45 days after the date of theEncounter. The data comes from all MD treatment facilities. Test Date/Time Test Type Test Details Facility Name Jan 17, 2024 12:00 AM Laboratory - Chemistry Order BASIC METABOLIC PANEL (non-fasting) BLOOD (SST-SERUM) [facility] Jan 17, 2024 12:00 AM Laboratory - Chemistry Order LIPID PANEL, NON FASTING BLOOD (SST-SERUM) [facility] Jan 17, 2024 12:00 AM Laboratory - Chemistry Order LIVER FUNCTION BLOOD (SST-SERUM) [facility] Jan 17, 2024 12:00 AM Laboratory - Chemistry Order TSH BLOOD (SST-SERUM) [facility] Jan 17, 2024 12:00 AM Laboratory - Chemistry Order MICROALBUMIN CREATININE RATIO PANEL URINE (RANDOM) [facility] Lab Results: +/- 30 days of [...] Range Comment Mar 06, 2024 09:56 AM [facility] VITAMIN D (25-OH) Specimen Type: SERUM No comment entered. Ordering Provider: Sherrie CASTILLO Report Released Date/Time: Mar 06, 2024 09:36 AM Reporting Lab: [address] [address] Performing Lab: [address] [address] VITAMIN D (25-OH) 20 ng/mL 20-50 Mar 06, 2024 09:56 AM [facility] IRON & TIBC PANEL Specimen Type: SERUM No comment entered. Ordering Provider: Sherrie CASTILLO Report Released Date/Time: Mar 06, 2024 09:36 AM Reporting [facility] [address] [facility] [address] Performing Lab: [facility] [address] [facility] [address] TIBC 364 ug/dL 204-475 IRON 36 ug/dL L 40-160 Transferrin Saturation 9.9 L 20.0-50.0 Mar 06, 2024 09:56 AM [facility] HEMOGLOBIN A1C PANEL Specimen Type: BLOOD [...] Mar 06, 2024 09:36 AM Reporting Lab: [facility] [address] [facility] [address] Performing Lab: [address] [address] HEMOGLOBIN A1C 5.4 4.0-5.6 Mar 06, 2024 09:56 AM [facility] FERRITIN Specimen Type: SERUM No comment entered. Ordering Provider: Sherrie CASTILLO Report Released Date/Time: Mar 06, 2024 09:36 AM Reporting Lab: [facility] [address] [facility] [address] Performing Lab: [facility] [address] FERRITIN 52 ng/mL 10-200 Mar 06, 2024 09:56 AM [facility] MICROALBUMIN CREATININE RATIO PANEL Specimen Type: URINE No comment entered. Ordering Provider: Sherrie CASTILLO Report Released Date/Time: Mar 06, 2024 09:36 AM Reporting Lab: [address] [address] Performing Lab: [address] [address] MICROALBUMIN/C REATININE RATIO 251.1 mg/g H 0-29.9 MICROALBUMIN,Q UANTITATIVE 11.2 mg/dL RR UNAVAIL CREATININE URINE 44.60 mg/dL Mar 06, 2024 09:56 AM [facility] BASIC METABOLIC PANEL (non-fasting) Specimen Type: SERUM No comment entered. Ordering Provider: Sherrie CASTILLO Report Released Date/Time: Mar 06, 2024 09:36 AM Reporting Lab: [address] [address] Performing Lab: [address] [address] UREA NITROGEN 28 mg/dL H 7-25 GLUCOSE 130 mg/dL H 65-100 SODIUM 142 mmol/L 135-145 POTASSIUM 4.8 mmol/L 3.5-5.0 CHLORIDE 97 mmol/L L 100-110 CO2 33 meq/L H 20-30 CREATININE, Serum 1.00 mg/dL 0.50-1.40 eGFR(CKD-EPI 2020) 63 mL/min >60 Mar 06, 2024 09:56 AM [facility] CBC AND DIFF (AUTO) Specimen Type: BLOOD No comment entered. Ordering Provider: Sherrie CASTILLO Report Released Date/Time: Mar 06, 2024 09:36 AM Reporting Lab: [address] [address] Performing Lab: [address] [address] WBC 12.33 10*3/uL H 4.50-11.00 RBC 3.92 [...] place. Date/Time Current Smoking Status Comment [facility] Mar 31, 2023 11:00 AM MD-TOBACCO FORMER USER [facility] Tobacco Use History This section includes a history of the smoking, or tobacco-related health factors, that were collected on or before the date of the Encounter. The data comes from the MD facility where the Encounter took place. Date/Time Smoking Status/Tobac co Use Comment Facility Mar 31, 2023 11:00 AM MD-TOBACCO QUIT 1 TO < 5 YRS [facility] Mar 25, 2022 10:30 AM VA-TOBACCO NEVER USED [facility] [place] [facility] Mar 19, 2021 02:00 PM VA-TOBACCO FORMER USER [facility] [place] [facility] Mar 19, 2021 02:00 PM VA-TOBACCO QUIT < [facility] [place] [facility] Sep 20, 2018 11:24 AM VA-TOBACCO USE DECLINED TO ANSWER [facility] [place] [facility] Oct 21, 2017 08:13 AM QUIT TOBACCO USE IN PAST YEAR [facility] [place] [facility] Dec 30, 2016 08:28 AM QUIT TOBACCO USE 1-7 YEARS AGO [facility] [place] [facility] Jun 04, 2016 08:43 AM QUIT TOBACCO USE 1-7 YEARS AGO [facility] [place] [facility] May 17, 2015 08:45 AM QUIT TOBACCO USE 1-7 YEARS AGO quit 2 years ago. [facility] [place] [facility] Jun 07, 2014 09:25 AM QUIT TOBACCO USE 1-7 YEARS AGO [facility] [place] [facility] November 30, 2013 08:44 AM QUIT TOBACCO USE IN PAST YEAR [facility] [place] [facility] May 22, 2013 10:10 AM QUIT TOBACCO USE IN PAST YEAR [facility] [place] [facility] December 01, 2012 01:54 PM QUIT TOBACCO USE IN PAST YEAR [facility] [place] [facility] Jun 07, 2012 08:16 AM V1-PT DECLINES TOBACCO CESSATION MEDS [facility] [place] [facility] Jun 07, 2012 08:16 AM V1-PT THINKING ABOUT QUIT TOBACCO USE [facility] [place] [facility] Jan 05, 2012 09:00 AM CURRENT SMOKER intermittenly [facility] [place] [facility] Jan 05, 2012 09:00 AM V1-PT DECLINES REF TO TOBACCO CESS PRGM [facility] [place] [facility] Jan 05, 2012 09:00 AM V1-PT DECLINES TOBACCO CESSATION MEDS [facility] [place] [facility] Jan 05, 2012 09:00 AM V1-PT THINKING ABOUT QUIT TOBACCO USE [facility] [place] [facility] Feb 17, 2011 09:52 AM V1-PT DECLINES TOBACCO CESSATION MEDS [facility] Feb 17, 2011 09:52 AM V1-PT THINKING ABOUT QUIT [facility]BACCO [facility] Aug 13, 2010 11:31 AM QUIT TOBACCO USE IN PAST YEAR [facility] Feb 19, 2010 01:26 PM QUIT TOBACCO USE IN PAST YEAR [facility] Sep 13, 2009 11:04 AM QUIT TOBACCO USE IN PAST [facility]AR [facility] Feb 05, 2009 08:29 AM V1-PT DECLINES REF TO TOBACCO CESS PRGM [facility] Feb 05, 2009 08:29 AM V1-PT DECLINES TOBACCO CESSATION MEDS [facility] Feb 05, 2009 08:29 AM V1-PT THINKING ABOUT QUIT TOBACCO USE [facility] Aug 22, 2008 09:04 AM QUIT TOBACCO USE IN PAST YEAR [facility] Mar 12, 2008 10:40 AM V1-PT DECLINES REF TO TOBACCO CESS PR[facility] Mar 12, 2008 10:40 AM V1-PT DECLINES TOBACCO CESSATION MEDS [facility] Mar 12, 2008 10:40 AM V1-PT NOT INTERESTED IN QUIT TOBACCO USE [facility] Mar 08, 2008 09:37 AM CURRENT SMOKER smokes one pack a day for about 10 years ago. [facility] Encounter Notes: All associated encounter [...] policy. Patient information [facility]. No prescription(s) for controlled substances outside the [facility] were found in the last 90 days. /divya/ MATEO SCOTT JR, MD STAFF PSYCHIATRIST Signed: 02/14/2024 11:22 MATEO SCOTT MD [facility] [place] [facility] Feb 14, 2024 09:59 AM TELEHEALTH NOTE: LOCAL TITLE: [facility] VIDEO CONNECT NOTE STANDARD TITLE: TELEHEALTH NOTE DATE OF NOTE: FEB 14, 2024@09:59 ENTRY DATE: FEB 14, 2024@09:59:48 AUTHOR: MATEO SCOTT EXP COSIGNER: URGENCY: STATUS: COMPLETED [facility] Video Connect (VVC) Standard Documentation VVC Clinician Resources Only: E911 (Emergency Call Relay Center): [phone] [facility] Crisis Line - 988 then press #1. [facility] Suicide Coordinator [phone], Ext. [phone]; Back-up Ext. [phone] MD Police, JOE, [place] [phone] Introduction: Visit is being conducted by MD [place] [facility]. [place] identified with 2 identifiers: [X] Full Name [X] Date of [ ] VA ID Card Emergency Plan: confirmed and/or provided the following information in case of emergency or technology failure. PATIENT PHONE - PHONE NUMBER [CELLULAR] - Is patient phone number correct, if not, enter below: [place]'s phone number: [address] [place] [address] 's emergency contact name and phone number: STELLA Cardenas [phone] [place] reported that location is private and safe: Yes Informed Consent: [place] informed of the risks and benefits of Telehealth video care. has the right to refuse video services. If refuses video visit, a [id number] visit will be scheduled. [place] verbalized consent for this video visit: Yes [...] DIPHTHERIA TOXOID 0.5ML INTRAMUSCULARLY NOW 6) Non-VA [id number]/VILANTERO L25MCG 30D INH 1 INHALATION BY MOUTH [...] get the clonazepam and temazepam from her guidance consultant and he retired. Umair states she has been on the same dose of clonazepam an temazepam for 3 years. Clonazepam was recommended by her guidance consultant and stated the clonazepam. Umair tried other anxiety meds, they were awful. No complaints, no cravings, and no adverse side effects from current medications were reported, no . Mood is stable, really well, things are going well. 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 Sleep and appetite are both, very good, appetite is way too good. Discussed continuation of present medications as above. Patient education given including that benzodiazepines are not indicated shelter and that there is a possible interaction with opioids causing respiratory depression. Vet is on a BiPAP machine. Vet declines [...] their sexual orientation as: Lesbian or Benítez /es/ MATEO SCOTT JR, MD STAFF PSYCHIATRIST Signed: 02/14/2024 11:22 MATEO SCOTT MD [facility]
--- OUTSIDE RECORDS SUMMARY | 2024-07-25 11:35 | XMS_ITS ---
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 ([place]) Organization [facility] ([place] Address [address] [place] [id number] Care Team Providers Care Template Worker Name Role Phone ROMANA CASTILLO Primary [...] Policy Garcia [facility] (MEDICAID) [facility]ID [facility] May 14, 2009 [id number] SAMPLE,ROCCO MOORE PATIENT [facility]ICAID [facility] May 14, 2009 [id number] SAMPLE,ROCCO MOORE PATIENT MEDICAID MEDICAID [facility] EST[facility] Jul 26, 2018 MEDICAI D [id number] SAMPLE,ROCCO MOORE PATIENT MEDICARE (WNR) MEDICARE (M) PART A November 24, 2015 PART A [id number] SAMPLE,ROCCO MOORE PATIENT MEDICARE (WNR) MEDICARE (M) PART B November 24, 2015 PART B [id number] ROCCO QUEZADA PATIENT Selected Encounter This [...] activities for the [facility] This section includes future appointments and future orders which are active, pending or scheduled. Future Appointments This section includes appointments that were scheduled to occur 6 months from the date of the Encounter, up to a maximum of 20 appointments. The data comes from all [facility] facilities. Appointment Date/Time Appointment Type Appointme nt Facility Name Feb 14, 2024 11:00 AM AMBULATORY - PSYCHIATRY [facility] [place] [facility] Mar 06, 2024 09:00 AM AMBULATORY - MEDICINE [facility] [place] [facility] Apr 03, 2024 11:30 AM AMBULATORY - MEDICINE [facility] [place] [facility] Apr 13, 2024 11:00 AM AMBULATORY - PSYCHIATRY [facility] [place] [facility] Apr 13, 2024 02:00 PM AMBULATORY - MEDICINE [facility] [place] [facility] Apr 13, 2024 03:00 PM AMBULATORY - MEDICINE [facility] [place] [facility] May 02, 2024 11:00 AM AMBULATORY - MEDICINE [facility] [place] [facility] May 15, 2024 11:30 AM AMBULATORY - PSYCHIATRY [facility] [place] [facility] May 25, 2024 11:30 AM AMBULATORY - MEDICINE [facility] [place] [facility] Jul 13, 2024 10:00 AM AMBULATORY - MEDICINE [facility] [place] [facility] Aug 03, 2024 01:00 PM AMBULATORY - PSYCHIATRY [facility] [place] [facility] Active, Pending, and Scheduled Orders This [...] Order BASIC METABOLIC PANEL (non-fasting) BLOOD (SST-SERUM) [facility] Jan 17, 2024 12:00 AM Laboratory - Chemistry Order LIPID PANEL, NON FASTING BLOOD (SST-SERUM) [facility] Jan 17, 2024 12:00 AM Laboratory - Chemistry Order LIVER FUNCTION BLOOD (SST-SERUM) [facility] Jan 17, 2024 12:00 AM Laboratory - Chemistry Order TSH BLOOD (SST-SERUM) [facility] Jan 17, 2024 12:00 AM Laboratory - Chemistry Order MICROALBUMIN CREATININE RATIO PANEL URINE (RANDOM) [facility] Lab Results: +/- 30 days of the encounter This section includes the Chemistry and Hematology Lab Results on record with ME for the patient. Radiology Reports and Pathology Reports are provided separately, in subsequent sections. Lab Results This section contains the Chemistry/Hematology Results that were resulted 30 days before or 30 daysafter the date of the Encounter. Date/Time Source Result Type Result - Unit Interpretation Reference Range Comment Mar 06, 2024 09:56 AM [facility] VITAMIN D (25-OH) Specimen Type: SERUM No comment entered. Ordering Provider: Sherrie CASTILLO Report Released Date/Time: Mar 06, 2024 09:36 AM Reporting Lab: [address] [address] Performing Lab: [address] [address] VITAMIN D (25-OH) 20 ng/mL 20-50 Mar 06, 2024 09:56 AM [facility] IRON & TIBC PANEL Specimen Type: SERUM No comment entered. Ordering Provider: Sherrie CASTILLO Report Released Date/Time: Mar 06, 2024 09:36 AM Reporting Lab: [address] [address] Performing Lab: [facility] [address] [facility] [address] TIBC 364 ug/dL 204-475 IRON 36 ug/dL L 40-160 Transferrin Saturation 9.9 L 20.0-50.0 Mar 06, 2024 09:56 AM [facility] HEMOGLOBIN A1C PANEL Specimen Type: [...] Mar 06, 2024 09:36 AM Reporting [facility]: [facility] [address] [address] Performing Lab: [facility] [address] HEMOGLOBIN A1C 5.4 4.0-5.6 Mar 06, 2024 09:56 AM [facility] FERRITIN Specimen Type: SERUM No comment entered. Ordering Provider: Sherrie CASTILLO Report Released Date/Time: Mar 06, 2024 09:36 AM Reporting Lab: [facility] [address] [facility] [address] Performing [facility]: [facility] [address] FERRITIN 52 ng/mL 10-200 Mar 06, 2024 09:56 AM [facility] MICROALBUMIN CREATININE RATIO PANEL Specimen Type: URINE No comment entered. Ordering Provider: Sherrie CASTILLO Report Released Date/Time: Mar 06, 2024 09:36 AM Reporting Lab: [facility] [address] [facility] [address] Performing Lab: [facility] [address] [address] MICROALBUMIN/C REATININE RATIO 251.1 mg/g H 0-29.9 MICROALBUMIN,Q UANTITATIVE 11.2 mg/dL RR UNAVAIL CREATININE URINE 44.60 mg/dL Mar 06, 2024 09:56 AM [facility] BASIC METABOLIC PANEL (non-fasting) Specimen Type: SERUM No comment entered. Ordering Provider: Sherrie CASTILLO Report Released Date/Time: Mar 06, 2024 09:36 AM Reporting Lab: [address] [address] Performing Lab: [address] [address] UREA NITROGEN 28 mg/dL H 7-25 GLUCOSE 130 mg/dL H 65-100 SODIUM 142 mmol/L 135-145 POTASSIUM 4.8 mmol/L 3.5-5.0 CHLORIDE 97 mmol/L L 100-110 CO2 33 meq/L H 20-30 CREATININE, Serum 1.00 mg/dL 0.50-1.40 eGFR(CKD-EPI 2020) 63 mL/min >60 Mar 06, 2024 09:56 AM [facility] CBC AND DIFF (AUTO) Specimen Type: BLOOD No comment entered. Ordering Provider: Sherrie CASTILLO Report Released Date/Time: Mar 06, 2024 09:36 AM Reporting Lab: [facility] [address] [facility] [address] Performing Lab: [address] [address] WBC 12.33 10*3/uL H 4.50-11.00 RBC 3.92 [...] 31, 2023 11:00 AM VA-TOBACCO FORMER USER [facility] [place] [facility] Tobacco Use History This section includes a history of the smoking, or tobacco-related health factors, that were collected on or before the date of the Encounter. The data comes from the [place] facility where the Encounter took place. Date/Time Smoking Status/Tobac co Use Comment Facility Mar 31, 2023 11:00 AM VA-TOBACCO QUIT 1 TO < 5 YRS [facility] [place] [facility] Mar 25, 2022 10:30 AM VA-TOBACCO NEVER USED [facility] [place] [facility] Mar 19, 2021 02:00 PM VA-TOBACCO FORMER USER [facility] [place] [facility] Mar 19, 2021 02:00 PM VA-TOBACCO QUIT < 1 YEAR [facility] [place] [facility] Sep 20, 2018 11:24 AM VA-TOBACCO USE DECLINED TO ANSWER [facility] [place] [facility] Oct 21, 2017 08:13 AM QUIT [facility] [place] [facility] Dec 30, 2016 08:28 AM QUIT TOBACCO USE 1-7 YEARS AGO [facility] [place] [facility] Jun 04, 2016 08:43 AM QUIT TOBACCO USE 1-7 YEARS AGO [facility] [place] [facility] May 17, 2015 08:45 AM QUIT TOBACCO USE 1-7 YEARS AGO quit 2 years ago. [facility] [place] [facility] Jun 07, 2014 09:25 AM QUIT TOBACCO USE 1-7 YEARS AGO [facility] [place] [facility] November 30, 2013 08:44 AM QUIT TOBACCO USE IN PAST YEAR [facility] [place] [facility] May 22, 2013 10:10 AM QUIT TOBACCO USE [facility] [place] [facility] December 01, 2012 01:54 PM QUIT TOBACCO USE IN PAST YEAR [facility] [place] [facility] Jun 07, 2012 08:16 AM V1-PT DECLINES TOBACCO CESSATION [facility] [place] [facility] Jun 07, 2012 08:16 AM V1-PT THINKING ABOUT QUIT TOBACCO USE [facility] [place] [facility] Jan 05, 2012 09:00 AM CURRENT SMOKER intermittenly [facility] [place] [facility] Jan 05, 2012 09:00 AM V1-PT DECLINES REF TO TOBACCO CESS [facility] [place] [facility] Jan 05, 2012 09:00 AM V1-PT DECLINES TOBACCO CESSATION [facility] [place] [facility] Jan 05, 2012 09:00 AM V1-PT THINKING ABOUT QUIT TOBACCO [facility] [place] [facility] Feb 17, 2011 09:52 AM V1-PT DECLINES TOBACCO CESSATION MEDS [facility] [place] [facility] Feb 17, 2011 09:52 AM V1-PT THINKING ABOUT QUIT TOBACCO USE [facility] [place] [facility] Aug 13, 2010 11:31 AM QUIT TOBACCO USE IN PAST YEAR [facility] [place] [facility] Feb 19, 2010 01:26 PM QUIT TOBACCO USE IN PAST [facility] [place] [facility] Sep 13, 2009 11:04 AM QUIT TOBACCO USE IN PAST YEAR [facility] LUZ MARIAN [facility] Feb 05, 2009 08:29 AM V1-PT DECLINES REF TO TOBACCO CESS PRGM [facility] LUZ MARIAEvi [facility] Feb 05, 2009 08:29 AM V1-PT DECLINES TOBACCO CESSATION [facility] Feb 05, 2009 08:29 AM V1-PT THINKING ABOUT QUIT TOBACCO USE [facility] Aug 22, 2008 09:04 AM QUIT TOBACCO USE IN PAST YEAR [facility] Mar 12, 2008 10:40 AM V1-PT DECLINES REF TO TOBACCO CESS PR[facility] Mar 12, 2008 10:40 AM V1-PT DECLINES TOBACCO CESSATION MEDS [facility] Mar 12, 2008 10:40 AM V1-PT NOT INTERESTED IN QUIT TOBACCO USE [facility] Mar 08, 2008 09:37 AM CURRENT SMOKER smokes one pack a day for about 10 years ago. [facility] Encounter Notes: All associated encounter notes This section contains the clinical notes associated to the Encounter. Date/Time Encounter Note(s) Provider Source Feb 11, 2024 08:56 AM NONVA NOTE: [facility] TITLE: [facility] PRESENTING CARE COORD PLAN STANDARD TITLE: NONVA NOTE DATE OF NOTE: FEB 11, 2024@08:56 ENTRY DATE: FEB 11, 2024@08:56:24 AUTHOR: MADELINE MUNOZ COSIGNER: URGENCY: STATUS: COMPLETED Emergency Notification Intake Date Presenting to the Facility: Jan Method of Contact: Notified from [facility] worklist Notification ID: [id number] [facility] Referral #: [facility] Hospital Name: Hospital: [facility] Address: City: [place] State: [place] Zip Code: Phone : [facility] Facility Point of Contact: Name: Melanie Phone: Chief complaint: E87.5, J96.21 Primary Diagnosis: Disposition Admitted Route of Admission: ER Date of Admission: Jan Admitting Diagnosis: E87.5, J96.21 Community Care Provider: Confirm Level of Care: izzy/ MADELINE MUNOZ AMSA Signed: 02/11/2024 08:57 Receipt Acknowledged By: 02/11/2024 14:59 /es/ ROMANA CASTILLO MD PHYSICIAN 02/11/2024 09:21 /es/ OLGA GREEN, MSN, RN, CNL PRIMARY CARE TEAM NURSE 02/11/2024 09:22 /es/ OLGA GREEN, MSN, RN, CNL PRIMARY CARE TEAM NURSE for JOHN ARTEAGA TUSTINMADELINE ISABELLA
--- OUTSIDE RECORDS SUMMARY | 2024-07-25 11:35 | XMS_ITS | Encounter Summary ---
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 [place] Organization [facility] [place] Address [address] [place] [id number] Care Team Providers Care School Business Administrator Name Role Phone ROMANA CASTILLO Primary [...] Garcia [facility] (MEDICAID) [facility]ID [facility] May 14, 2009 [id number] SAMPLE,ROCCO MOORE PATIENT [facility] MEDICAID [facility] May 14, 2009 [id number] SAMPLE,ROCCO MOORE PATIENT MEDICAID MEDICAID [facility] ST[facility] ESTEFANY Jul 26, 2018 MEDICAI D [id number] SAMPLE,ROCCO MOORE PATIENT MEDICARE (WNR) MEDICARE (M) PART A November 24, 2015 PART A [id number] SAMPLE,ROCCO MOORE PATIENT MEDICARE (WNR) MEDICARE (M) PART B November 24, 2015 PART B [id number] [phone] ROCCO QUEZADA PATIENT Selected Encounter This section includes the information on record at [place] for the Encounter. Date/Time Encounter Type Encounter Description Reason Provider Source Feb 09, 2024 12:09 PM Outpatient Encounter TELEPHONE PRIMARY CARE ICD-10-CM E87.5 Hyperkalemia EDWINANAYA OROZCOPallavi Balderas Giancarlo E Encounter Template Text not used by [place] Assessments - Encounter Diagnoses This section includes the primary and secondary diagnoses documented for the Encounter. Date/Time Primary/Secondary Diagnosis Diagnosis Name Provider Source Feb 09, 2024 12:09 PM PRIMARY Hyperkalemia EDWINWENDY OROZCO [place] [facility] [place] [facility] Plan of Treatment: Future Appointments [...] AMBULATORY - PSYCHIATRY [place] [facility] [place] [facility] Mar 06, 2024 09:00 AM AMBULATORY - MEDICINE NM [facility] [place] [facility] Apr 03, 2024 11:30 AM AMBULATORY - MEDICINE NM [facility] [place] [facility] Apr 13, 2024 11:00 AM AMBULATORY - PSYCHIATRY [place] [facility] [place] [facility] Apr 13, 2024 02:00 PM AMBULATORY - MEDICINE NM [facility] [place] [facility] Apr 13, 2024 03:00 PM AMBULATORY - MEDICINE NM [facility] [place] [facility] May 02, 2024 11:00 AM AMBULATORY - MEDICINE NM [facility] [place] [facility] May 15, 2024 11:30 AM AMBULATORY - PSYCHIATRY [place] [facility] [place] [facility] May 25, 2024 11:30 AM AMBULATORY - MEDICINE [place] [facility] [place] [facility] Jul 13, 2024 10:00 AM AMBULATORY - MEDICINE NM [facility] [place] [facility] Aug 03, 2024 01:00 PM [facility] Active, Pending, and Scheduled Orders This section includes a listing of several types of active, pending, and scheduled orders, including clinic medications orders, diagnostic test orders, procedure orders and consult orders; where the start date of the order is 45 days before the date of the Encounter or 45 days after the date of theEncounter. The data comes from all [place] treatment facilities. Test Date/Time Test Type Test Details Facility Name Jan 17, 2024 12:00 AM Laboratory - Chemistry Order BASIC METABOLIC PANEL (non-fasting) BLOOD (SST-SERUM) [facility] Jan 17, 2024 12:00 AM Laboratory - Chemistry Order LIPID PANEL, NON FASTING BLOOD (SST-SERUM) [facility] Jan 17, 2024 12:00 AM Laboratory - Chemistry Order LIVER FUNCTION BLOOD (SST-SERUM) [facility] Jan 17, 2024 12:00 AM Laboratory - Chemistry Order TSH BLOOD (SST-SERUM) [facility] Jan 17, 2024 12:00 AM Laboratory - Chemistry Order MICROALBUMIN CREATININE RATIO PANEL URINE (RANDOM) [facility] Lab Results: +/- 30 days of [...] Range Comment Mar 06, 2024 09:56 AM [facility] VITAMIN D (25-OH) Specimen Type: SERUM No comment entered. Ordering Provider: Sherrie CASTILLO Report Released Date/Time: Mar 06, 2024 09:36 AM Reporting Lab: [address] [address] Performing Lab: [address] [address] VITAMIN D (25-OH) 20 ng/mL 20-50 Mar 06, 2024 09:56 AM [facility] IRON & TIBC PANEL Specimen Type: SERUM No comment entered. Ordering Provider: Sherrie CASTILLO Report Released Date/Time: Mar 06, 2024 09:36 AM Reporting [facility] [address] [facility] [address] Performing Lab: [facility] [address] [facility] [address] TIBC 364 ug/dL 204-475 IRON 36 ug/dL L 40-160 Transferrin Saturation 9.9 L 20.0-50.0 Mar 06, 2024 09:56 AM [facility] FERRITIN Specimen Type: SERUM No comment entered. Ordering Provider: Sherrie CASTILLO Report Released Date/Time: Mar 06, 2024 09:36 AM Reporting Lab: [facility] [address] [facility] [address] Performing Lab: [facility] [address] FERRITIN 52 ng/mL 10-200 Mar 06, 2024 09:56 AM [facility] HEMOGLOBIN A1C PANEL Specimen Type: BLOOD Comment: [...] Mar 06, 2024 09:36 AM Reporting Lab: [facility] [address] [facility] [address] Performing Lab: [address] [address] HEMOGLOBIN A1C 5.4 4.0-5.6 Mar 06, 2024 09:56 AM [facility] MICROALBUMIN CREATININE RATIO PANEL Specimen Type: URINE No comment entered. Ordering Provider: Sherrie CASTILLO Report Released Date/Time: Mar 06, 2024 09:36 AM Reporting Lab: [address] [address] Performing Lab: [address] [address] MICROALBUMIN/C REATININE RATIO 251.1 mg/g H 0-29.9 MICROALBUMIN,Q UANTITATIVE 11.2 mg/dL RR UNAVAIL CREATININE URINE 44.60 mg/dL Mar 06, 2024 09:56 AM [facility] BASIC METABOLIC PANEL (non-fasting) Specimen Type: SERUM No comment entered. Ordering Provider: Sherrie CASTILLO Report Released Date/Time: Mar 06, 2024 09:36 AM Reporting Lab: [address] [address] Performing Lab: [address] [address] UREA NITROGEN 28 mg/dL H 7-25 GLUCOSE 130 mg/dL H 65-100 SODIUM 142 mmol/L 135-145 POTASSIUM 4.8 mmol/L 3.5-5.0 CHLORIDE 97 mmol/L L 100-110 CO2 33 meq/L H 20-30 CREATININE, Serum 1.00 mg/dL 0.50-1.40 eGFR(CKD-EPI 2020) 63 mL/min >60 Mar 06, 2024 09:56 AM [facility] CBC AND DIFF (AUTO) Specimen Type: BLOOD No comment entered. Ordering Provider: Sherrie CASTILLO Report Released Date/Time: Mar 06, 2024 09:36 AM Reporting Lab: [address] [address] Performing Lab: [address] [address] WBC 12.33 10*3/uL H 4.50-11.00 RBC 3.92 [...] place. Date/Time Current Smoking Status Comment [facility] Mar 31, 2023 11:00 AM VA-TOBACCO FORMER USER [facility] Tobacco Use History This section includes a history of the smoking, or tobacco-related health factors, that were collected on or before the date of the Encounter. The data comes from the [place] facility where the Encounter took place. Date/Time Smoking Status/Tobac co Use Comment Facility Mar 31, 2023 11:00 AM VA-TOBACCO QUIT 1 TO < 5 YRS [facility] Mar 25, 2022 10:30 AM VA-TOBACCO NEVER USED [facility] Mar 19, 2021 02:00 PM VA-TOBACCO FORMER USER [facility] [place] [facility] Mar 19, 2021 02:00 PM VA-TOBACCO QUIT < 1 YEAR [facility] [place] [facility] Sep 20, 2018 11:24 AM [facility] [place] [facility] Oct 21, 2017 08:13 AM QUIT TOBACCO USE IN PAST YEAR [facility] [place] [facility] Dec 30, 2016 08:28 AM QUIT TOBACCO USE 1-7 YEARS AGO [facility] [place] [facility] Jun 04, 2016 08:43 AM QUIT TOBACCO USE 1-7 YEARS AGO [facility] [place] [facility] May 17, 2015 08:45 AM QUIT TOBACCO USE 1-7 YEARS AGO quit 2 years ago. [facility] [place] [facility] Jun 07, 2014 09:25 AM QUIT TOBACCO USE 1-7 YEARS AGO [facility] [place] [facility] November 30, 2013 08:44 AM QUIT TOBACCO USE IN PAST YEAR [facility] [place] [facility] May 22, 2013 10:10 AM QUIT TOBACCO USE IN PAST YEAR [facility] [place] [facility] December 01, 2012 01:54 PM QUIT TOBACCO USE IN PAST YEAR [facility] [place] [facility] Jun 07, 2012 08:16 AM V1-PT DECLINES TOBACCO CESSATION MEDS [facility] [place] [facility] Jun 07, 2012 08:16 AM V1-PT THINKING ABOUT QUIT TOBACCO USE [facility] [place] [facility] Jan 05, 2012 09:00 AM CURRENT SMOKER intermittenly [facility] [place] [facility] Jan 05, 2012 09:00 AM V1-PT DECLINES REF TO TOBACCO CESS PRGM [facility] [place] [facility] Jan 05, 2012 09:00 AM V1-PT DECLINES TOBACCO CESSATION MEDS [facility] [place] [facility] Jan 05, 2012 09:00 AM V1-PT THINKING ABOUT QUIT TOBACCO USE [facility] [place] [facility] Feb 17, 2011 09:52 AM V1-PT DECLINES TOBACCO CESSATION MEDS [facility] [place] [facility] Feb 17, 2011 09:52 AM V1-PT THINKING ABOUT QUIT TOBACCO USE [facility] Aug 13, 2010 11:31 AM QUIT [facility]BACCO USE [facility]ST [facility] Feb 19, 2010 01:26 PM QUIT TOBACCO USE IN PAST YEAR [facility] LUZ MARIAEvi [facility] Sep 13, 2009 11:04 AM QUIT TOBACCO USE IN PAST YEAR [facility] Feb 05, 2009 08:29 AM V1-PT DECLINES REF TO TOBACCO CESS [facility] Feb 05, 2009 08:29 AM V1-PT DECLINES TOBACCO CESSATION MEDS [facility] LUZ MARIAN [facility] Feb 05, 2009 08:29 AM V1-PT THINKING ABOUT QUIT TOBACCO USE [facility] LU[facility] MARIAEvi [facility] Aug 22, 2008 09:04 AM QUIT TOBACCO USE IN PAST YEAR [facility] Mar 12, 2008 10:40 AM V1-PT DECLINES REF TO TOBACCO CESS [facility] Mar 12, 2008 10:40 AM V1-PT DECLINES TOBACCO CESSATION MEDS [facility] Mar 12, 2008 10:40 AM V1-PT NOT INTERESTED IN QUIT TOBACCO USE [facility] LUZ MARIAEvi [facility] Mar 08, 2008 09:37 AM CURRENT SMOKER smokes one pack a day for about 10 years ago. [facility] Encounter Notes: All associated encounter notes This section contains the clinical notes associated to the Encounter. Date/Time Encounter Note(s) Provider Source Mar 06, 2024 10:26 AM ACCOUNTING OF DISCLOSURES NOTE: LOCAL TITLE: [facility] PRESCRIPTION DRUG MONITORING PROGRAM STANDARD TITLE: ACCOUNTING [...] policy. Patient information was shared with the [facility] App[employer] [place]. No prescription(s) for controlled substances outside the [facility] were found in the last 90 days. 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 03/04/2024 1 02/14/2024 Clonazepam 0.5 Mg Tablet 120.00 30 Ar Mon [id number] [place] (4904) 1/ /[place] 02/16/2024 1 02/14/2024 Clonazepam 0.5 Mg Tablet 120.00 30 Ar Mon [id number] [place] (4904) 0/ /[place] 02/14/2024 1 11/17/2023 Buprenorphine 2 Mg Tablet Sl 240.00 30 Wi Cut [id number] Nc (4904) 3/ 16.00 mg /[place] 01/31/2024 1 01/03/2024 Temazepam 30 Mg Capsule 30.00 30 Ar Mon [id number] Nc (4904) 0/ /[place] 01/31/2024 1 01/26/2024 Oxycodone Hcl (Ir) 5 Mg Tablet 224.00 28 Wi Cut [id number] Va (4904) 0/0 60.00 MME /[place] 01/20/2024 1 11/17/2023 Buprenorphine 2 Mg Tablet Sl 240.00 30 Wi Cut [id number] Nc (4904) 2/ 16.00 mg /[place] 01/20/2024 1 01/03/2024 Clonazepam 0.5 Mg Tablet 120.00 30 Ar Mon [id number] Nc (4904) 0/1 /[place] 01/04/2024 1 01/04/2024 Oxycodone Hcl (Ir) 5 Mg Tablet 336.00 28 Wi Cut [id number] Va (4904) 0/0 90.00 MME /[place] 12/31/2023 1 11/17/2023 Buprenorphine 2 Mg Tablet Sl 240.00 30 Wi Cut [id number] Nc (4904) 1/ 16.00 mg /[place] 12/31/2023 1 10/07/2023 Temazepam 30 Mg Capsule 30.00 30 Ar Mon [id number] Nc (4904) 3/ /[place] 12/16/2023 1 12/16/2023 Clonazepam 0.5 Mg Tablet 28.00 7 Ar Mon [id number] [place] (4904) 0/0 /[place] 12/15/2023 1 10/07/2023 Clonazepam 0.5 Mg Tablet 60.00 30 Ar Mon [id number] [place] (5614) 2/ /[place] 12/08/2023 1 12/07/2023 Oxycodone Hcl (Ir) 5 Mg Tablet 336.00 28 Wi Cut 2271008 [place] (4904) 0/0 90.00 MME /[place] 11/26/2023 1 11/17/2023 Buprenorphine 2 Mg Tablet Sl 240.00 30 Wi Cut [id number] [place] (4904) 0/5 16.00 mg /[place] 11/25/2023 1 10/07/2023 Temazepam 30 Mg Capsule 30.00 30 Ar Mon [id number] [place] (4904) 2/ /[place] 11/17/2023 1 10/07/2023 Clonazepam 0.5 Mg Tablet 60.00 30 Ar Mon [id number] [place] (5614) 1/ /[place] 11/12/2023 1 06/24/2023 Buprenorphine 2 Mg Tablet Sl 120.00 30 Wi Cut [id number] [place] (4904) 4/ 8.00 mg /[place] 11/05/2023 1 11/04/2023 Oxycodone Hcl (Ir) 5 Mg Tablet 336.00 28 Wi Cut [id number] [place] (4904) 0/0 90.00 MME /[place] 10/25/2023 1 10/07/2023 Temazepam 30 Mg Capsule 30.00 30 Ar Mon [id number] [place] (4904) 1/ /[place] 10/19/2023 2 10/19/2023 Clonazepam 0.25 Mg Odt 5.00 5 Ja Fle [id number] [facility] (7608) 0/0 [place] 10/19/2023 1 06/24/2023 Buprenorphine 2 Mg Tablet Sl 120.00 30 Wi Cut 3715304 [place] (4904) 3/5 8.00 mg /[place] 10/18/2023 1 10/07/2023 Clonazepam 0.5 Mg Tablet 60.00 30 Ar Mon [id number] Va (1214) 0/3 /[place] 10/07/2023 1 10/07/2023 Temazepam 30 Mg Capsule 30.00 30 Ar Mon [id number] [place] (4904) 0/3 /[place] 10/06/2023 1 10/06/2023 Oxycodone Hcl (Ir) 5 Mg Tablet 448.00 28 Wi Cut 7439440 [place] (4904) 0/0 120.00 MME /[place] 09/23/2023 1 09/21/2023 Temazepam 30 Mg Capsule 13.00 13 Ar Mon [id number] [place] (4904) 0/0 /[place] 09/23/2023 1 09/22/2023 Oxycodone Hcl (Ir) 5 Mg Tablet 240.00 15 Wi Cut [id number] Va (4904) 0/0 120.00 MME /[place] 09/22/2023 1 08/05/2023 Clonazepam 0.5 Mg Tablet 60.00 30 Ar Mon [id number] [place] (4904) 2/ /[place] 09/09/2023 1 09/08/2023 Oxycodone Hcl (Ir) 5 Mg Tablet 240.00 15 Wi Cut [id number] Va (4904) 0/0 120.00 MME /[place] 09/01/2023 2 09/01/2023 Hydromorphone 4 Mg Tablet 20.00 5 Ya Sherine [id number] [facility] (7608) 0/0 80.00 MME Medicare [place] 09/01/2023 1 06/24/2023 Buprenorphine 2 Mg Tablet Sl 120.00 30 Wi Cut [id number] [place] (4904) 2/5 8.00 mg /[place] 08/26/2023 1 08/05/2023 Clonazepam 0.5 Mg Tablet 60.00 30 Ar Mon [id number] [place] (4904) 07/27 /[place] // JOSE E SUAREZ MD PHYSICIAN Signed: 03/06/2024 10:26 JOSE E SUAREZ [place] [facility] [place] [facility] Feb 09, 2024 12:16 PM PAIN [...] STAFF PHYSICIAN Signed: 02/09/2024 12:17 WENDY MADSEN [place] [facility]
--- OUTSIDE RECORDS SUMMARY | 2024-07-25 11:36 | XMS_ITS | Encounter Summary ---
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 Organization [place] Address [address] [place] [id number] Care Team Providers Care Dry Goods Clerk Name Role Phone ROMANA CASTILLO Primary [...] Garcia's Name Patient's Relationship to Policy Garcia [facility] (MEDICAID) [facility] May 14, 2009 [id number] SAMPLE,ROCCO MOORE PATIENT [facility] May 14, 2009 [id number] SAMPLE,ROCCO MOORE PATIENT MEDICAID MEDICAID [facility] [place] Jul 26, 2018 MEDICAI D [id number] SAMPLE,ROCCO MOORE PATIENT MEDICARE (WNR) MEDICARE (M) PART A November 24, 2015 PART A [id number] SAMPLE,ROCCO MOORE PATIENT MEDICARE (WNR) MEDICARE (M) PART B November 24, 2015 PART B [id number] ROCCO QUEZADA PATIENT Selected Encounter This [...] activities for the patient from all [place] [facility] This section includes future appointments and future orders which are active, pending or scheduled. Future Appointments This section includes appointments that were scheduled to occur 6 months from the date of the Encounter, up to a maximum of 20 appointments. The data comes from all [facility]. Appointment Date/Time Appointment Type Appointme nt Facility Name Mar 06, 2024 09:00 AM AMBULATORY - MEDICINE [place] [facility] [facility] Apr 03, 2024 11:30 AM AMBULATORY - MEDICINE [place] [facility] [place] [facility] Apr 13, 2024 11:00 AM AMBULATORY - PSYCHIATRY [place] [facility] [place] [facility] Apr 13, 2024 02:00 PM AMBULATORY - MEDICINE [place] [facility] [place] [facility] Apr 13, 2024 03:00 PM AMBULATORY - MEDICINE [place] [facility] [place] [facility] May 02, 2024 11:00 AM AMBULATORY - MEDICINE [place] [facility] [place] [facility] May 15, 2024 11:30 AM AMBULATORY - PSYCHIATRY [place] [facility] [place] [facility] May 25, 2024 11:30 AM AMBULATORY - MEDICINE [place] [facility] [place] [facility] Jul 13, 2024 10:00 AM AMBULATORY - MEDICINE [place] [facility] [place] [facility] Aug 03, 2024 01:00 PM AMBULATORY - PSYCHIATRY [place] [facility] [place] [facility] Aug 24, 2024 11:00 AM AMBULATORY - MEDICINE [facility] [facility] Active, Pending, and Scheduled Orders This section includes a listing of several types of active, pending, and scheduled orders, including clinic medications orders, diagnostic test orders, procedure orders and consult orders; where the start date of the order is 45 days before the date of the Encounter or 45 days after the date of theEncounter. The data comes from all [facility] facilities. Test Date/Time Test Type Test Details [...] and Hematology Lab Results on record with [place] for the patient. Radiology Reports and Pathology Reports are provided separately, in subsequent sections. Lab Results This section contains the Chemistry/Hematology Results that were resulted 30 days before or 30 daysafter the date of the Encounter. Date/Time Source Result Type Result - Unit Interpretation Reference Range Comment Mar 06, 2024 09:56 AM [facility] IRON & TIBC PANEL Specimen Type: SERUM No comment entered. Ordering Provider: Sherrie CASTILLO Report Released Date/Time: Mar 06, 2024 09:36 AM Reporting Lab: [address] [address] Performing Lab: [address] [address] TIBC 364 ug/dL 204-475 IRON 36 ug/dL L 40-160 Transferrin Saturation 9.9 L 20.0-50.0 Mar 06, 2024 09:56 AM [facility] VITAMIN D (25-OH) Specimen Type: SERUM No comment entered. Ordering Provider: Sherrie CASTILLO Report Released Date/Time: Mar 06, 2024 09:36 AM Reporting Lab: [address] [place] [address] Performing Lab: [place] [facility] [facility] [address] [facility] [address] VITAMIN D (25-OH) 20 ng/mL 20-50 Mar 06, 2024 09:56 AM [facility] [place] [facility] FERRITIN Specimen Type: SERUM No comment entered. Ordering Provider: Sherrie CASTILLO Report Released Date/Time: Mar 06, 2024 09:36 AM Reporting Lab: [facility] [place] [facility] [address] [facility] [address] Performing Lab: [place] [facility] [address] [address] FERRITIN 52 ng/mL 10-200 Mar 06, 2024 09:56 AM [facility] HEMOGLOBIN A1C PANEL Specimen Type: BLOOD [...] Mar 06, 2024 09:36 AM Reporting Lab: [facility] [place] [facility] [address] [facility] [address] Performing Lab: [facility] [address] [address] HEMOGLOBIN A1C 5.4 4.0-5.6 Mar 06, 2024 09:56 AM [facility] MICROALBUMIN CREATININE RATIO PANEL Specimen Type: URINE No comment entered. Ordering Provider: Sherrie CASTILLO Report Released Date/Time: Mar 06, 2024 09:36 AM Reporting Lab: [place] [facility] [facility] [address] [facility] [address] Performing Lab: [facility] [place] [address] [address] MICROALBUMIN/C REATININE RATIO 251.1 mg/g H 0-29.9 MICROALBUMIN,Q UANTITATIVE 11.2 mg/dL RR UNAVAIL CREATININE URINE 44.60 mg/dL Mar 06, 2024 09:56 AM [facility] BASIC METABOLIC PANEL (non-fasting) Specimen Type: SERUM No comment entered. Ordering Provider: Sherrie CASTILLO Report Released Date/Time: Mar 06, 2024 09:36 AM Reporting Lab: [address] [address] Performing Lab: [address] [address] UREA NITROGEN 28 mg/dL H 7-25 GLUCOSE 130 mg/dL H 65-100 SODIUM 142 mmol/L 135-145 POTASSIUM 4.8 mmol/L 3.5-5.0 CHLORIDE 97 mmol/L L 100-110 CO2 33 meq/L H 20-30 CREATININE, Serum 1.00 mg/dL 0.50-1.40 eGFR(CKD-EPI 2020) 63 mL/min >60 Mar 06, 2024 09:56 AM [facility] CBC AND DIFF (AUTO) Specimen Type: BLOOD No comment entered. Ordering Provider: Sherrie CASTILLO Report Released Date/Time: Mar 06, 2024 09:36 AM Reporting Lab: [facility] [address] [facility] [address] Performing Lab: [address] [address] WBC 12.33 10*3/uL H 4.50-11.00 RBC 3.92 [...] place. Date/Time Current Smoking Status Comment [facility] Mar 31, 2023 11:00 AM VA-TOBACCO FORMER USER [place] CN[facility] [employer] [place] [facility] Tobacco Use History This section includes a history of the smoking, or tobacco-related health factors, that were collected on or before the date of the Encounter. The data comes from the [place] facility where the Encounter took place. Date/Time Smoking Status/Tobac co Use Comment Facility Mar 31, 2023 11:00 AM VA-TOBACCO QUIT 1 TO < 5 YRS [place] [facility] [facility] Mar 25, 2022 10:30 AM VA-TOBACCO NEVER USED [place] [facility] [place] [facility] Mar 19, 2021 02:00 PM VA-TOBACCO FORMER USER [place] [facility] [facility] Mar 19, 2021 02:00 PM VA-TOBACCO QUIT < 1 YEAR [place] [facility] [facility] Sep 20, 2018 11:24 AM VA-TOBACCO USE DECLINED TO ANSWER [place] [facility] [place] [facility] Oct 21, 2017 08:13 AM QUIT TOBACCO USE IN PAST YEAR [facility] [place] [facility] Dec 30, 2016 08:28 AM QUIT TOBACCO USE 1-7 YEARS AGO [place] [facility] [place] [facility] Jun 04, 2016 08:43 AM QUIT TOBACCO USE 1-7 YEARS AGO [place] [facility] [place] [facility] May 17, 2015 08:45 AM QUIT TOBACCO USE 1-7 YEARS AGO quit 2 years ago. [place] [facility] [facility] Jun 07, 2014 09:25 AM QUIT TOBACCO USE 1-7 YEARS AGO [place] [facility] [facility] November 30, 2013 08:44 AM QUIT TOBACCO USE IN PAST YEAR [place] [facility] [place] [facility] May 22, 2013 10:10 AM QUIT TOBACCO USE IN PAST YEAR [facility] [place] [facility] December 01, 2012 01:54 PM QUIT TOBACCO USE IN PAST YEAR [facility] [place] [facility] Jun 07, 2012 08:16 AM V1-PT DECLINES TOBACCO CESSATION MEDS [facility] [place] [facility] Jun 07, 2012 08:16 AM V1-PT THINKING ABOUT QUIT TOBACCO USE [facility] [place] [facility] Jan 05, 2012 09:00 AM CURRENT SMOKER intermittenly [facility] [place] [facility] Jan 05, 2012 09:00 AM V1-PT DECLINES REF TO TOBACCO CESS PRGM [facility] [place] [facility] Jan 05, 2012 09:00 AM V1-PT DECLINES TOBACCO CESSATION MEDS [facility] [place] [facility] Jan 05, 2012 09:00 AM V1-PT THINKING ABOUT QUIT TOBACCO USE [facility] [place] [facility] Feb 17, 2011 09:52 AM V1-PT DECLINES TOBACCO CESSATION MEDS [place] CNTR [place] [facility] Feb 17, 2011 09:52 AM V1-PT THINKING ABOUT QUIT TOBACCO USE [place] [facility]TR [place] [facility] Aug 13, 2010 11:31 AM QUIT TOBACCO USE IN PAST YEAR [facility] [place] [facility] Feb 19, 2010 01:26 PM QUIT TOBACCO USE IN PAST YEAR [facility] Sep 13, 2009 11:04 AM QUIT TOBACCO USE IN PAST YEAR [facility] Feb 05, 2009 08:29 AM V1-PT DECLINES REF TO TOBACCO CESS PRGM [facility] Feb 05, 2009 08:29 AM V1-PT DECLINES TOBACCO CESSATION MEDS [facility] Feb 05, 2009 08:29 AM V1-PT THINKING ABOUT QUIT TOBACCO USE [facility] Aug 22, 2008 09:04 AM QUIT TOBACCO USE IN PAST YEAR [facility] Mar 12, 2008 10:40 AM V1-PT DECLINES REF TO TOBACCO CESS PRGM [facility] Mar 12, 2008 10:40 AM V1-PT DECLINES TOBACCO CESSATION MEDS [facility] Mar 12, 2008 10:40 AM V1-PT NOT INTERESTED IN QUIT TOBACCO USE [facility] Mar 08, 2008 09:37 AM CURRENT SMOKER smokes one pack a day for about 10 years ago. [facility] Encounter Notes: All associated encounter notes This section contains the clinical notes associated to the Encounter. Date/Time Encounter Note(s) Provider Source Feb 25, 2024 02:44 PM RESPIRATORY THERAP Y NOTE: LOCAL TITLE: RESPIRATORY THERAPY NOTE(BLANK) STANDARD TITLE: RESPIRATORY THERAPY NOTE DATE OF NOTE: FEB 25, 2024@14:44 ENTRY DATE: FEB 25, 2024@14:44:17 AUTHOR: ROSALVA HARMON EXP COSIGNER: URGENCY: STATUS: COMPLETED Walsh with COPD uses oxygen through the [place] @2 LPM at rest, 4L with activity and 4L with her BiPAP. Her prescription is due for renewal and she will need to be seen in O2 clinic for a follow-up O2 evaluation. Her prescription will be temporarily renewed until she is seen in clinic. An RTC will be placed. /divya/ ROSALVA HARMON BA, FLIGHT DECK OFFICER, RPFT RESPIRATORY THERAPIST Signed: 02/25/2024 14:47 ROSALVA HARMON [facility]
--- OUTSIDE RECORDS SUMMARY | 2024-07-25 11:36 | XMS_ITS | Encounter Summary ---
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 Name Role Phone ROMANA CASTILLO Primary [...] Garcia's Name Patient's Relationship to Policy Garcia [facility] (MEDICAID) [facility] May 14, 2009 [id number] SAMPLE,ROCCO MOORE PATIENT [facility]ICAID [facility] May 14, 2009 [id number] SAMPLE,ROCCO MOORE PATIENT MEDICAID MEDICAID [facility] Jul 26, 2018 MEDICAI D [id number] SAMPLE,ROCCO MOORE PATIENT MEDICARE (WNR) MEDICARE (M) PART A November 24, 2015 PART A [id number] SAMPLE,ROCCO MOORE PATIENT MEDICARE (WNR) MEDICARE (M) PART B November 24, 2015 PART B [id number] [id number] [phone] [id number] ROCCO QUEZADA PATIENT Selected Encounter This [...] - MEDICINE [place] [facility] [facility] Apr 13, 2024 11:00 AM AMBULATORY - PSYCHIATRY [place] [facility] [place] [facility] Apr 13, 2024 02:00 PM AMBULATORY - MEDICINE [place] C [facility] [facility] Apr 13, 2024 03:00 PM AMBULATORY - MEDICINE [place] C [facility] [place] [facility] May 02, 2024 11:00 AM AMBULATORY - MEDICINE [place] C [facility] [place] [facility] May 15, 2024 11:30 AM AMBULATORY - PSYCHIATRY [place] [facility] [place] [facility] May 25, 2024 11:30 AM AMBULATORY - MEDICINE [place] C [facility] [facility] Jul 13, 2024 10:00 AM AMBULATORY - MEDICINE [place] C [facility] [place] [facility] Aug 03, 2024 01:00 PM AMBULATORY - PSYCHIATRY [place] [facility] [place] [facility] Aug 24, 2024 11:00 AM AMBULATORY - MEDICINE [place] C [facility] [facility] Sep 07, 2024 11:30 AM AMBULATORY - MEDICINE [place] C [facility] [place] [facility] Lab Results: +/- 30 days of the encounter This section includes the Chemistry and Hematology Lab Results on record with [place] for the patient. Radiology Reports and Pathology Reports are provided separately, in subsequent sections. Lab Results This section contains the Chemistry/Hematology Results that were resulted 30 days before or 30 daysafter the date of the Encounter. Date/Time Source Result Type Result - Unit Interpretation Reference Range Comment Mar 06, 2024 09:56 [facility] VITAMIN D (25-OH) Specimen Type: SERUM No comment entered. Ordering Provider: Sherrie CASTILLO Report Released Date/Time: Mar 06, 2024 09:36 AM Reporting Lab: [facility] [address] [address] Performing Lab: [facility] [address] [address] VITAMIN D (25-OH) 20 ng/mL 20-50 Mar 06, 2024 09:56 AM [facility] IRON & TIBC PANEL Specimen Type: SERUM No comment entered. Ordering Provider: Sherrie CASTILLO Report Released Date/Time: Mar 06, 2024 09:36 AM Reporting Lab: [facility] [address] [address] Performing Lab: [facility] [address] [facility] [address] TIBC 364 ug/dL 204-475 IRON 36 ug/dL L 40-160 Transferrin Saturation 9.9 L 20.0-50.0 Mar 06, 2024 09:56 AM [facility] FERRITIN Specimen Type: SERUM No comment entered. Ordering Provider: Sherrie CASTILLO Report Released Date/Time: Mar 06, 2024 09:36 AM Reporting Lab: [facility] [place] [address] [address] Performing Lab: [facility] [address] [address] FERRITIN 52 ng/mL 10-200 Mar 06, 2024 09:56 AM [facility] HEMOGLOBIN A1C PANEL Specimen Type: BLOOD [...] 2024 09:36 AM Reporting Lab: [facility] [address] [facility] [address] Performing Lab: [address] [address] HEMOGLOBIN A1C 5.4 4.0-5.6 Mar 06, 2024 09:56 AM [facility] MICROALBUMIN CREATININE RATIO PANEL Specimen Type: URINE No comment entered. Ordering Provider: Sherrie CASTILLO Report Released Date/Time: Mar 06, 2024 09:36 AM Reporting Lab: [address] [address] Performing Lab: [address] [address] MICROALBUMIN/C REATININE RATIO 251.1 mg/g H 0-29.9 MICROALBUMIN,Q UANTITATIVE 11.2 mg/dL RR UNAVAIL CREATININE URINE 44.60 mg/dL Mar 06, 2024 09:56 AM [facility] BASIC METABOLIC PANEL (non-fasting) Specimen Type: SERUM No comment entered. Ordering Provider: Sherrie CASTILLO Report Released Date/Time: Mar 06, 2024 09:36 AM Reporting Lab: [address] [address] Performing Lab: [address] [address] UREA NITROGEN 28 mg/dL H 7-25 GLUCOSE 130 mg/dL H 65-100 SODIUM 142 mmol/L 135-145 POTASSIUM 4.8 mmol/L 3.5-5.0 CHLORIDE 97 mmol/L L 100-110 CO2 33 meq/L H 20-30 CREATININE, Serum 1.00 mg/dL 0.50-1.40 eGFR(CKD-EPI 2020) 63 mL/min >60 Mar 06, 2024 09:56 AM [facility] CBC AND DIFF (AUTO) Specimen Type: BLOOD No comment entered. Ordering Provider: Sherrie CASTILLO Report Released Date/Time: Mar 06, 2024 09:36 AM Reporting Lab: [facility] [address] [facility] [address] Performing Lab: [facility] [address] [facility] [address] WBC 12.33 10*3/uL H 4.50-11.00 RBC 3.92 [...] AM VA-TOBACCO QUIT 15 YRS OR MORE [facility] [place] [facility] Tobacco Use History This section includes a history of the smoking, or tobacco-related health factors, that were collected on or before the date of the Encounter. The data comes from the [place] facility where the Encounter took place. Date/Time Smoking Status/Tobac co Use Comment Facility Mar 06, 2024 09:00 AM VA-TOBACCO QUIT 15 YRS OR MORE [place] [facility] [place] [facility] Mar 31, 2023 11:00 AM VA-TOBACCO FORMER USER [place] [facility] [place] [facility] Mar 31, 2023 11:00 AM VA-TOBACCO QUIT 1 TO < 5 YRS [place] [facility] [place] [facility] Mar 25, 2022 10:30 AM VA-TOBACCO NEVER USED [place] [facility] [place] [facility] Mar 19, 2021 02:00 PM VA-TOBACCO FORMER USER [place] [facility] [place] [facility] Mar 19, 2021 02:00 PM VA-TOBACCO QUIT < 1 YEAR [place] [facility] [place] [facility] Sep 20, 2018 11:24 AM VA-TOBACCO USE DECLINED TO ANSWER [place] [facility] [place] [facility] Oct 21, 2017 08:13 AM QUIT TOBACCO USE IN PAST YEAR [place] [facility] [place] [facility] Dec 30, 2016 08:28 AM QUIT TOBACCO USE 1-7 YEARS AGO [place] [facility] [place] [facility] Jun 04, 2016 08:43 AM QUIT TOBACCO USE 1-7 YEARS AGO [place] [facility] [place] [facility] May 17, 2015 08:45 AM QUIT TOBACCO USE 1-7 YEARS AGO quit 2 years ago. [place] [facility] [place] [facility] Jun 07, 2014 09:25 AM QUIT TOBACCO USE 1-7 YEARS AGO [place] [facility] [place] [facility] November 30, 2013 08:44 AM QUIT TOBACCO USE IN PAST YEAR [place] [facility] [place] [facility] May 22, 2013 10:10 AM QUIT TOBACCO USE IN PAST YEAR [place] [facility] [place] [facility] December 01, 2012 01:54 PM QUIT TOBACCO USE IN PAST YEAR [place] [facility] [place] [facility] Jun 07, 2012 08:16 AM V1-PT DECLINES TOBACCO CESSATION MEDS [facility] [place] [facility] Jun 07, 2012 08:16 AM V1-PT THINKING ABOUT QUIT TOBACCO USE [place] [facility] [place] [facility] Jan 05, 2012 09:00 AM CURRENT SMOKER intermittenly [place] CNTR [place] [facility] Jan 05, 2012 09:00 AM V1-PT DECLINES REF TO TOBACCO CESS PRGM [facility] [place] [facility] Jan 05, 2012 09:00 AM V1-PT DECLINES TOBACCO CESSATION MEDS [facility] [place] [facility] Jan 05, 2012 09:00 AM V1-PT THINKING ABOUT QUIT TOBACCO USE [facility] [place] [facility] Feb 17, 2011 09:52 AM V1-PT DECLINES TOBACCO CESSATION MEDS [facility] [place] [facility] Feb 17, 2011 09:52 AM V1-PT THINKING ABOUT QUIT TOBACCO USE [facility] [place] [facility] Aug 13, 2010 11:31 AM QUIT TOBACCO USE IN PAST YEAR [facility] [place] [facility] Feb 19, 2010 01:26 PM QUIT TOBACCO USE IN PAST YEAR [place] [facility]TR [place] [facility] Sep 13, 2009 11:04 AM QUIT TOBACCO USE IN PAST YEAR [place] [facility]TR [place] [facility] Feb 05, 2009 08:29 AM V1-PT DECLINES REF TO TOBACCO CESS PRGM [facility] [place] [facility] Feb 05, 2009 08:29 AM V1-PT DECLINES TOBACCO CESSATION MEDS [facility] [place] [facility] Feb 05, 2009 08:29 AM V1-PT THINKING ABOUT QUIT TOBACCO USE [place] [facility]TR [place] [facility] Aug 22, 2008 09:04 AM QUIT TOBACCO USE IN PAST YEAR [place] [facility] [place] [facility] Mar 12, 2008 10:40 AM V1-PT DECLINES REF TO TOBACCO CESS PRGM [place] [facility]TR [place] [facility] Mar 12, 2008 10:40 AM V1-PT DECLINES TOBACCO CESSATION MEDS [place] [facility] [place] [facility] Mar 12, 2008 10:40 AM V1-PT NOT INTERESTED IN QUIT TOBACCO USE [facility] Mar 08, 2008 09:37 AM CURRENT SMOKER smokes one pack a day for about 10 years ago. [facility] Encounter Notes: All associated encounter [...] [place] will be doing this. 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 Sheis concerned about pain management after her [...] MD PHYSICIAN Signed: 03/16/2024 11:58 BEULAH LOPEZ [facility]
--- OUTSIDE RECORDS SUMMARY | 2024-07-25 11:36 | XMS_ITS | Encounter Summary ---
Author Name [facility] [facility] [place] Organization [facility] [place] Address [address] [place] [id number] Care Team Providers Care Instructor Military Science Name Role Phone ROMANA CASTILLO Primary Care [...] [facility] (MEDICAID) [facility] May 14, 2009 [id number] SAMPLE,ROCCO MOORE PATIENT [facility] MEDICAID [facility] HUMAN [facility] May 14, 2009 [id number] SAMPLE,ROCCO MOORE PATIENT MEDICAID MEDICAID [facility] Jul 26, 2018 MEDICAI D [id number] SAMPLE,ROCCO MOORE PATIENT MEDICARE (WNR) MEDICARE (M) PART A November 24, 2015 PART A [id number] SAMPLE,ROCCO MOORE PATIENT MEDICARE (WNR) MEDICARE (M) PART B November 24, 2015 PART B [id number] ROCCO QUEZADA PATIENT Selected Encounter This section includes the information on record at CT for the Encounter. Date/Time Encounter Type Encounter Description Reason Pro vider Source Feb 24, 2024 12:00 PM Outpatient Encounter EVENT (HISTORICAL) IHE [...] - MEDICINE CT C [place] [facility] Apr 03, 2024 11:30 AM AMBULATORY - MEDICINE [facility] C [place] [place] [facility] Apr 13, 2024 11:00 AM AMBULATORY - PSYCHIATRY [place] [facility] [place] [facility] Apr 13, 2024 02:00 PM AMBULATORY - MEDICINE CT C [place]L [place] [facility] Apr 13, 2024 03:00 PM AMBULATORY - MEDICINE CT C [place]L [place] [facility] May 02, 2024 11:00 AM AMBULATORY - MEDICINE CT C NTRL [place] [facility] May 15, 2024 11:30 AM AMBULATORY - PSYCHIATRY [place] [facility] [place] [facility] May 25, 2024 11:30 AM AMBULATORY - MEDICINE CT C [place]TRL [place] [facility] Jul 13, 2024 10:00 AM AMBULATORY - MEDICINE CT C NTRL [place] [facility] Aug 03, 2024 01:00 PM AMBULATORY - PSYCHIATRY [place] [facility] [place] [facility] Aug 24, 2024 11:00 AM AMBULATORY - MEDICINE CT C NTRL [place] [facility] Active, Pending, and Scheduled Orders This section includes a listing of several types of active, pending, and scheduled orders, including clinic medications orders, diagnostic test orders, procedure orders and consult orders; where the start date of the order is 45 days before the date of the Encounter or 45 days after the date of theEncounter. The data comes from all [place] treatment facilities. Test Date/Time Test Type Test Details Facility Name Jan 17, 2024 12:00 AM Laboratory - Chemistry Order BASIC METABOLIC PANEL (non-fasting) BLOOD (SST-SERUM) [facility] Jan 17, 2024 12:00 AM Laboratory - Chemistry Order LIPID PANEL, NON FASTING BLOOD (SST-SERUM) [facility] Jan 17, 2024 12:00 AM Laboratory - Chemistry Order LIVER FUNCTION BLOOD (SST-SERUM) [facility] Jan 17, 2024 12:00 AM Laboratory - Chemistry Order TSH BLOOD (SST-SERUM) [facility] Jan 17, 2024 12:00 AM Laboratory - Chemistry Order MICROALBUMIN CREATININE RATIO PANEL URINE (RANDOM) [facility] Lab Results: +/- 30 days of the encounter This section includes the Chemistry and Hematology Lab Results on record with CT for the patient. Radiology Reports and Pathology [...] Mar 06, 2024 09:36 AM Reporting Lab: [address] [address] Performing Lab: [address] [address] TIBC 364 ug/dL 204-475 IRON 36 ug/dL L 40-160 Transferrin Saturation 9.9 L 20.0-50.0 Mar 06, 2024 09:56 AM [facility] VITAMIN D (25-OH) Specimen Type: SERUM No comment entered. Ordering Provider: Sherrie CASTILLO Report Released Date/Time: Mar 06, 2024 09:36 AM Reporting Lab: [facility] [address] [address] Performing Lab: [place] [facility] [address] [address] VITAMIN D (25-OH) 20 ng/mL 20-50 Mar 06, 2024 09:56 AM [facility] [place] [facility] FERRITIN Specimen Type: SERUM No comment entered. Ordering Provider: Sherrie CASTILLO Report Released Date/Time: Mar 06, 2024 09:36 AM Reporting Lab: [place] [facility] [place] [facility] [address] [address] Performing Lab: [facility] [place] [facility] [address] [address] FERRITIN 52 ng/mL 10-200 Mar 06, 2024 09:56 AM [facility] HEMOGLOBIN A1C PANEL Specimen Type: BLOOD Comment: [...] Mar 06, 2024 09:36 AM Reporting Lab: [facility] [place] [facility] [address] [address] Performing Lab: [facility] [address] [address] HEMOGLOBIN A1C 5.4 4.0-5.6 Mar 06, 2024 09:56 AM [facility] MICROALBUMIN CREATININE RATIO PANEL Specimen Type: URINE No comment entered. Ordering Provider: Sherrie CASTILLO Report Released Date/Time: Mar 06, 2024 09:36 AM Reporting Lab: [place] [facility] [address] [address] Performing Lab: [facility] [address] [address] MICROALBUMIN/C REATININE RATIO 251.1 mg/g H 0-29.9 MICROALBUMIN,Q UANTITATIVE 11.2 mg/dL RR UNAVAIL CREATININE URINE 44.60 mg/dL Mar 06, 2024 09:56 AM [facility] BASIC METABOLIC PANEL (non-fasting) Specimen Type: SERUM No comment entered. Ordering Provider: Sherrie CASTILLO Report Released Date/Time: Mar 06, 2024 09:36 AM Reporting Lab: [facility] [address] [address] Performing Lab: [address] [address] UREA NITROGEN 28 mg/dL H 7-25 GLUCOSE [...] AM Reporting Lab: [facility] [address] [address] Performing Lab: [address] [address] WBC 12.33 10*3/uL H 4.50-11.00 RBC 3.92 [...] took place. Date/Time Current Smoking Status Comment [facility] Mar 31, 2023 11:00 AM VA-TOBACCO FORMER USER CT CNTR [facility]N [facility] Tobacco Use History This section includes a history of the smoking, or tobacco-related health factors, that were collected on or before the date of the Encounter. The data comes from the CT facility where the Encounter took place. Date/Time Smoking Status/Tobac co Use Comment Facility Mar 31, 2023 11:00 AM VA-TOBACCO QUIT 1 TO < [address] [facility] Mar 25, 2022 10:30 AM VA-TOBACCO NEVER USED CT CNTRL [place] [facility] Mar 19, 2021 02:00 PM VA-TOBACCO FORMER USER CT CNTRL [place] [facility] Mar 19, 2021 02:00 PM VA-TOBACCO QUIT < [address] [place] [facility] Sep 20, 2018 11:24 AM VA-TOBACCO USE DECLINED TO ANSWER CT CNTRL [place] [facility] Oct 21, 2017 08:13 AM QUIT TOBACCO USE IN PAST YEAR CT CNTR [place] [facility] Dec 30, 2016 08:28 AM QUIT TOBACCO USE 1-[address] [place] [facility] Jun 04, 2016 08:43 AM QUIT TOBACCO USE 1-[address] [place] [facility] May 17, 2015 08:45 AM QUIT TOBACCO USE 1-7 YEARS AGO quit [address] [place] [place] [facility] Jun 07, 2014 09:25 AM QUIT TOBACCO USE 1-[address] [place] [facility] November 30, 2013 08:44 AM QUIT TOBACCO USE IN PAST YEAR [place] CNTR [place] [facility] May 22, 2013 10:10 AM QUIT TOBACCO USE IN PAST YEAR [facility] [place] [facility] December 01, 2012 01:54 PM QUIT TOBACCO USE IN PAST YEAR [facility] [place] [facility] Jun 07, 2012 08:16 AM V1-PT DECLINES TOBACCO CESSATION MEDS [facility] [place] [facility] Jun 07, 2012 08:16 AM V1-PT THINKING ABOUT QUIT TOBACCO USE [facility] [place] [facility] Jan 05, 2012 09:00 AM CURRENT SMOKER intermittenly [facility] [place] [facility] Jan 05, 2012 09:00 AM V1-PT DECLINES REF TO TOBACCO CESS PRGM [facility] [place] [facility] Jan 05, 2012 09:00 AM V1-PT DECLINES TOBACCO CESSATION MEDS [facility] [place] [facility] Jan 05, 2012 09:00 AM V1-PT THINKING ABOUT QUIT TOBACCO USE [facility] [place] [facility] Feb 17, 2011 09:52 AM V1-PT DECLINES TOBACCO CESSATION MEDS CT CNTR [place] [facility] Feb 17, 2011 09:52 AM V1-PT THINKING ABOUT QUIT TOBACCO USE CT CNTR [place] [facility] Aug 13, 2010 11:31 AM QUIT TOBACCO USE IN PAST YEAR [facility] [place] [facility] Feb 19, 2010 01:26 PM QUIT TOBACCO USE IN PAST YEAR [facility] Sep 13, 2009 11:04 AM QUIT TOBACCO USE IN PAST YEAR [facility] Feb 05, 2009 08:29 AM V1-PT DECLINES REF TO TOBACCO CESS PRGM [facility] Feb 05, 2009 08:29 AM V1-PT DECLINES TOBACCO CESSATION MEDS [facility] Feb 05, 2009 08:29 AM V1-PT THINKING ABOUT QUIT TOBACCO USE [facility] Aug 22, 2008 09:04 AM QUIT TOBACCO USE IN PAST YEAR [facility] Mar 12, 2008 10:40 AM V1-PT DECLINES REF TO TOBACCO CESS PRGM [facility] Mar 12, 2008 10:40 [...] Encounter. Date/Time Encounter Note(s) Provider Source Feb 24, 2024 12:00 PM NONVA NOTE: LOCAL TITLE: NON-CT OUTPATIENT NOTES STANDARD TITLE: NONVA NOTE DATE OF NOTE: FEB 24, 2024@12:00 ENTRY DATE: MAR 15, 2024@14:20:40 AUTHOR: NIKOLAS DALY COSIGNER: URGENCY: STATUS: COMPLETED VistA Imaging - Scanned Document SCANNED DOCUMENT SIGNATURE NOT REQUIRED Electronically Filed: 03/15/2024 by: MERCEDES DALY Guest Services Officer MERCEDES DALY [facility]
--- OUTSIDE RECORDS SUMMARY | 2024-07-25 11:36 | XMS_ITS ---
Author Name [facility] [place] Address [address] [place] [address] Care Team Providers Care Manager Valuation Name Role Phone ROMANA CASTILLO Primary Care [...] Garcia's Name Patient's Relationship to Policy Garcia [facility] (MEDICAID) [place]ICAID [place] HUMAN [facility] May 14, 2009 [id number] SAMPLE,ROCCO MOORE PATIENT [facility] MEDICAID [facility] May 14, 2009 [id number] SAMPLE,ROCCO MOORE PATIENT MEDICAID MEDICAID [facility] Jul 26, 2018 MEDICAI D [id number] SAMPLE,ROCCO MOORE PATIENT MEDICARE (WNR) MEDICARE (M) PART A November 24, 2015 PART A [id number] SAMPLE,ROCCO MOORE PATIENT MEDICARE (WNR) MEDICARE (M) PART B November 24, 2015 PART B [id number] SAMPLE,ROCCO MOORE PATIENT Selected Encounter This [...] 06, 2024 09:00 AM AMBULATORY - MEDICINE [place] [facility] Apr 03, 2024 11:30 AM AMBULATORY - MEDICINE [place] C [place] [facility] Apr 13, 2024 11:00 AM AMBULATORY - PSYCHIATRY [place] [facility] Apr 13, 2024 02:00 PM AMBULATORY - MEDICINE [place] C [place] [facility] Apr 13, 2024 03:00 PM AMBULATORY - MEDICINE [place] C [place] [facility] May 02, 2024 11:00 AM AMBULATORY - MEDICINE [place] C [place] [facility] May 15, 2024 11:30 AM AMBULATORY - PSYCHIATRY [place] [facility] May 25, 2024 11:30 AM AMBULATORY - MEDICINE [place] C [place] [facility] Jul 13, 2024 10:00 AM AMBULATORY - MEDICINE [place] C [place] [facility] Aug 03, 2024 01:00 PM AMBULATORY - PSYCHIATRY [place] [facility] Aug 24, 2024 11:00 AM AMBULATORY - MEDICINE [place] C [place] [facility] Active, Pending, and Scheduled Orders This section includes a listing of several types of active, pending, and scheduled orders, including clinic medications orders, diagnostic test orders, procedure orders and consult orders; where the start date of the order is 45 days before the date of the Encounter or 45 days after the date of theEncounter. The data comes from all [place] treatment facilities. Test Date/Time Test Type Test Details Facility Name Jan 17, 2024 12:00 AM Laboratory - Chemistry Order BASIC METABOLIC PANEL (non-fasting) BLOOD (SST-SERUM) [facility] Jan 17, 2024 12:00 AM Laboratory - Chemistry Order LIPID PANEL, NON FASTING BLOOD (SST-SERUM) [facility] Jan 17, 2024 12:00 AM Laboratory - Chemistry Order LIVER FUNCTION BLOOD (SST-SERUM) [facility] Jan 17, 2024 12:00 AM Laboratory - Chemistry Order TSH BLOOD (SST-SERUM) [facility] Jan 17, 2024 12:00 AM Laboratory - Chemistry Order MICROALBUMIN CREATININE RATIO PANEL URINE (RANDOM) [facility] Lab Results: +/- 30 days of the encounter This section includes the Chemistry and Hematology Lab Results on record with [place] for the patient. Radiology Reports and Pathology [...] Mar 06, 2024 09:36 AM Reporting Lab: [address] [address] Performing Lab: [address] [address] VITAMIN D (25-OH) 20 ng/mL 20-50 Mar 06, 2024 09:56 AM [facility] IRON & TIBC PANEL Specimen Type: SERUM No comment entered. Ordering Provider: Sherrie CASTILLO Report Released Date/Time: Mar 06, 2024 09:36 AM Reporting Lab: [address] [address] Performing Lab: [place] [facility] [address] [address] [facility] [address] TIBC 364 ug/dL 204-475 IRON 36 ug/dL L 40-160 Transferrin Saturation 9.9 L 20.0-50.0 Mar 06, 2024 09:56 AM [place] [facility] [place] [facility] FERRITIN Specimen Type: SERUM No comment entered. Ordering Provider: Sherrie CASTILLO Report Released Date/Time: Mar 06, 2024 09:36 AM Reporting Lab: [facility] [place] [facility] [address] [address] Performing Lab: [place] [address] [address] FERRITIN 52 ng/mL 10-200 Mar 06, 2024 09:56 AM [facility] [place] [facility] HEMOGLOBIN A1C PANEL Specimen Type: BLOOD Comment: [...] Mar 06, 2024 09:36 AM Reporting Lab: [place] [address] [address] Performing Lab: [place] [address] [address] HEMOGLOBIN A1C 5.4 4.0-5.6 Mar 06, 2024 09:56 AM [facility] [place] [facility] MICROALBUMIN CREATININE RATIO PANEL Specimen Type: URINE No comment entered. Ordering Provider: Sherrie CASTILLO Report Released Date/Time: Mar 06, 2024 09:36 AM Reporting Lab: [place] [address] [address] Performing Lab: [place] [address] [address] MICROALBUMIN/C REATININE RATIO 251.1 mg/g H 0-29.9 MICROALBUMIN,Q UANTITATIVE 11.2 mg/dL RR UNAVAIL CREATININE URINE 44.60 mg/dL Mar 06, 2024 09:56 AM [facility] BASIC METABOLIC PANEL (non-fasting) Specimen Type: SERUM No comment entered. Ordering Provider: Sherrie CASTILLO Report Released Date/Time: Mar 06, 2024 09:36 AM Reporting Lab: [facility] [address] [facility] [address] Performing Lab: [facility] [address] [facility] [address] UREA NITROGEN 28 mg/dL H 7-25 GLUCOSE [...] Lab: [facility] [address] [facility] [address] Performing Lab: [facility] [address] [facility] [address] WBC 12.33 10*3/uL H 4.50-11.00 RBC 3.92 [...] took place. Date/Time Current Smoking Status Comment [facility] Mar 31, 2023 11:00 AM VA-TOBACCO [facility] Tobacco Use History This section includes a history of the smoking, or tobacco-related health factors, that were collected on or before the date of the Encounter. The data comes from the [place] facility where the Encounter took place. Date/Time Smoking Status/Tobac co Use Comment Facility Mar 31, 2023 11:00 AM VA-TOBACCO QUIT 1 TO < 5 YRS [place]TR [place] [facility] Mar 25, 2022 10:30 AM VA-TOBACCO NEVER USED [place] CNTR[place] [facility] Mar 19, 2021 02:00 PM VA-TOBACCO FORMER USER [place] [facility] Mar 19, 2021 02:00 PM VA-TOBACCO QUIT < 1 YEAR [place] [facility] Sep 20, 2018 11:24 AM VA-TOBACCO USE DECLINED TO ANSWER [facility] [place] [facility] Oct 21, 2017 08:13 AM QUIT TOBACCO USE IN PAST YEAR [place] [facility] Dec 30, 2016 08:28 AM QUIT TOBACCO USE 1-7 YEARS AGO [place] [facility] Jun 04, 2016 08:43 AM QUIT TOBACCO USE 1-7 YEARS AGO [place] [facility] May 17, 2015 08:45 AM QUIT TOBACCO USE 1-7 YEARS AGO quit 2 years ago. [place] [facility] Jun 07, 2014 09:25 AM QUIT TOBACCO USE 1-7 YEARS AGO [place] [facility] November 30, 2013 08:44 AM QUIT TOBACCO USE IN PAST YEAR [facility] [place] [place] [facility] May 22, 2013 10:10 AM QUIT TOBACCO USE IN PAST YEAR [facility] [place] [facility] December 01, 2012 01:54 PM QUIT TOBACCO USE IN PAST YEAR [facility] [place] [facility] Jun 07, 2012 08:16 AM V1-PT DECLINES TOBACCO CESSATION MEDS [facility] [place] [facility] Jun 07, 2012 08:16 AM V1-PT THINKING ABOUT QUIT TOBACCO USE [facility] [place] [facility] Jan 05, 2012 09:00 AM CURRENT SMOKER intermittenly [facility] [place] [facility] Jan 05, 2012 09:00 AM V1-PT DECLINES REF TO TOBACCO CESS PRGM [facility] [place] [facility] Jan 05, 2012 09:00 AM V1-PT DECLINES TOBACCO CESSATION MEDS [facility] [place] [place] [facility] Jan 05, 2012 09:00 AM V1-PT THINKING ABOUT QUIT TOBACCO USE [facility] [place] [facility] Feb 17, 2011 09:52 AM V1-PT DECLINES TOBACCO CESSATION MEDS [facility] [place] [place] [facility] Feb 17, 2011 09:52 AM V1-PT THINKING ABOUT QUIT TOBACCO USE [facility] [place] [facility] Aug 13, 2010 11:31 AM QUIT TOBACCO USE IN PAST YEAR [facility] [place] [place] [facility] Feb 19, 2010 01:26 PM QUIT TO[facility]ACCO [facility] Sep 13, 2009 11:04 AM QUIT TOBACCO USE [facility]ST [facility] Feb 05, 2009 08:29 AM V1-PT DECLINES REF TO TOBACCO CESS PR[facility] Feb 05, 2009 08:29 AM V1-PT DECLINES TOBACCO CESSATION MEDS [facility] Feb 05, 2009 08:29 AM V1-PT THINKING ABOUT QUIT TO[facility]ACCO USE [facility] Aug 22, 2008 09:04 AM QUIT TOBACCO USE IN PAST YEAR [facility] Mar 12, 2008 10:40 AM [...] number. Vet was calling to make a [facility] hospital DC f/u. Was DC from [facility] on 02/11/24. Offered Vet Tuesday 03/06 at 9am and Vet accepted. Please book in appointment. /divya/ Fabiola Arteaga supervisor special effects Staff Nurse Signed: 03/02/2024 15:42 Receipt Acknowledged By: 03/02/2024 15:48 /divya/ ROSA WOLFE Advanced Front Desk Monitor --- Original Document --- 03/02/24 CCC: SCHEDULING ADMINISTRATION: Patient Demographics Patient Name: REID QUEZADA Patient Primary Phone: [phone] Patient Primary Address: [place] [address] Patient : 1960 Patient Age: 64 Current Location: h Call Back Number: [phone] Caller/Recipient Relation to Patient: Self Scheduling Patient Expects Callback: No Administrative Administrative Note Reason: Outside Care Performed Administrative Note Comments: REQUESTING RETURN CALL RE: DISCHARGED OVER 1 WEEK - [facility] POTASSIUM ELEVATED /es/ ZHENG COUTU ZHENG COUTU CDA/AMSA Signed: 03/02/2024 14:01 Receipt Acknowledged By: * AWAITING SIGNATURE * OLGA GREEN 03/02/2024 15:42 /divya/ Fabiola Arteaga RN Primary Care Staff Nurse 03/02/2024 ADDENDUM STATUS: COMPLETED Scheduled. /divya/ ROSA WOLFE Advanced Front Desk Monitor Signed: 03/02/2024 15:48 FABIOLA ARTEAGA [place] [place] [facility] Mar 02, 2024 02:01 PM ADMINISTRATIVE NOT E: LOCAL TITLE: CCC: SCHEDULING ADMINISTRATION STANDARD TITLE: ADMINISTRATIVE NOTE DATE OF NOTE: MAR 02, 2024@14:01:21 ENTRY DATE: MAR 02, 2024@14:01:21 AUTHOR: ZHENG CHAIREZ COSIGNER: URGENCY: STATUS: COMPLETED CCC: SCHEDULING ADMINISTRATION Has ADDENDA Patient Demographics Patient Name: REID QUEZADA Patient Primary Phone: [phone] Patient Primary Address: [place] [address] Patient : 1960 Patient Age: 64 Current Location: h Call Back Number: [id number] Caller/Recipient Relation to Patient: Self Scheduling Patient Expects Callback: No Administrative Administrative Note Reason: Outside Care Performed Administrative Note Comments: REQUESTING RETURN CALL RE: DISCHARGED OVER 1 WEEK - [facility] POTASSIUM ELEVATED /es/ ZHENG COUTU ZHENG COUTU CDA/AMSA Signed: 03/02/2024 14:01 Receipt Acknowledged By: 03/03/2024 07:49 /divya/ OLGA GREEN, MSN, RN, CNL PRIMARY CARE TEAM NURSE 03/02/2024 15:42 /divya/ Fabiola Arteaga RN Primary Care Staff Nurse 03/02/2024 ADDENDUM STATUS: COMPLETED TC to [facility] at listed number. Vet was calling to make a [facility] hospital DC f/u. Was DC from [facility] on 02/11/24. Offered Vet Tuesday 03/06 at 9am and Vet accepted. Please book in appointment. /divya/ Fabiola Arteaga, supervisor special effects Staff Nurse Signed: 03/02/2024 15:42 Receipt Acknowledged By: 03/02/2024 15:48 /divya/ ROSA WOLFE Advanced Front Desk Monitor 03/02/2024 ADDENDUM STATUS: COMPLETED Scheduled. /divya/ ROSA WOLFE Advanced Front Desk Monitor Signed: 03/02/2024 15:48 ZHENG CHAIREZ CNTRL [facility]
--- OUTSIDE RECORDS SUMMARY | 2024-07-25 11:36 | XMS_ITS | Encounter Summary ---
Author Name Department of [facility] [place]) Organization [facility] [facility] [place] Address [address] [place] [address] Care Team Providers Care Restoration Ecologist Name Role Phone ROMANA CASTILLO Primary Care [...] Garcia's Name Patient's Relationship to Policy Garcia [facility] (MEDICAID) MEDICAID [facility] May 14, 2009 [id number] SAMPLE,ROCCO MOORE PATIENT [facility] MEDICAID [facility] May 14, 2009 [id number] SAMPLE,ROCCO MOORE PATIENT MEDICAID MEDICAID [facility] Jul 26, 2018 MEDICAI D [id number] SAMPLE,ROCCO MOORE PATIENT MEDICARE (WNR) MEDICARE (M) PART A November 24, 2015 PART A [id number] SAMPLE,ROCCO MOORE PATIENT MEDICARE (WNR) MEDICARE (M) PART B November 24, 2015 PART B [id number] SAMPLE,ROCCO MOORE PATIENT Selected Encounter This [...] PM PRIMARY Essential (primary) hypertension ROMANA CASTILLO [place] [facility] [place] [facility] Mar 06, 2024 12:29 PM SECONDARY Anemia, unspecified ROMANA CASTILLO [place] [facility] [place] [facility] Mar 06, 2024 12:29 PM SECONDARY Cyst of kidney, acquired ROMANA CASTILLO [place] [facility] [place] [facility] Mar 06, 2024 12:29 PM SECONDARY Hyperkalemia ROMANA CASTILLO [place] [facility] [place] [facility] Plan of Treatment: Future Appointments (+ 6 months) and Future Tests (+/- 45 days) The Plan of Treatment section includes future care activities for the patient from all OR treatmentfacity hospital. This section includes future appointments and [...] - MEDICINE OR C [facility] [place] [facility] Apr 13, 2024 11:00 AM AMBULATORY - PSYCHIATRY [place] [facility] [place] [facility] Apr 13, 2024 02:00 PM AMBULATORY - MEDICINE OR C [place] [facility] Apr 13, 2024 03:00 PM AMBULATORY - MEDICINE OR C [place] [facility] May 02, 2024 11:00 AM AMBULATORY - MEDICINE OR C [place] [facility] May 15, 2024 11:30 AM AMBULATORY - PSYCHIATRY [place] [facility] [place] [facility] May 25, 2024 11:30 AM AMBULATORY - MEDICINE OR C [place] [facility] Jul 13, 2024 10:00 AM AMBULATORY - MEDICINE OR C [place] [facility] Aug 03, 2024 01:00 PM AMBULATORY - PSYCHIATRY [place] [facility] [place] [facility] Aug 24, 2024 11:00 AM AMBULATORY - MEDICINE [facility] Lab Results: +/- 30 days of the encounter This section includes the Chemistry and Hematology Lab Results on record with OR for the patient. Radiology Reports and Pathology Reports are provided separately, in subsequent sections. Lab Results This section contains the Chemistry/Hematology Results that were resulted 30 days before or 30 daysafter the date of the Encounter. Date/Time Source Result Type Result - Unit Interpretation Reference Range Comment Mar 06, 2024 09:56 [facility] IRON & TIBC PANEL Specimen Type: SERUM No comment entered. Ordering Provider: Sherrie CASTILLO Report Released Date/Time: Mar 06, 2024 09:36 AM Reporting Lab: [facility] [address] [facility] [address] Performing Lab: [facility]TRN [facility] [address] [facility] [address] TIBC 364 ug/dL 204-475 IRON 36 ug/dL L 40-160 Transferrin Saturation 9.9 L 20.0-50.0 Mar 06, 2024 09:56 AM [facility] FERRITIN Specimen Type: SERUM No comment entered. Ordering Provider: Sherrie CASTILLO Report Released Date/Time: Mar 06, 2024 09:36 AM Reporting Lab: [facility]TRN [facility] [address] [facility] [address] Performing Lab: [facility]TRN [facility] [address] [facility] [address] FERRITIN 52 ng/mL 10-200 Mar 06, 2024 09:56 [address] [facility] VITAMIN D (25-OH) Specimen Type: SERUM No comment entered. Ordering Provider: Sherrie CASTILLO Report Released Date/Time: Mar 06, 2024 09:36 AM Reporting Lab: [facility] [address] Performing Lab: [facility] [address] VITAMIN D (25-OH) 20 ng/mL 20-50 Mar 06, 2024 09:56 AM [facility] HEMOGLOBIN A1C PANEL Specimen Type: BLOOD [...] Mar 06, 2024 09:36 AM Reporting Lab: [facility] [address] Performing Lab: [address] [address] HEMOGLOBIN A1C 5.4 4.0-5.6 Mar 06, 2024 09:56 AM [facility] MICROALBUMIN CREATININE RATIO PANEL Specimen Type: URINE No comment entered. Ordering Provider: Sherrie CASTILLO Report Released Date/Time: Mar 06, 2024 09:36 AM Reporting Lab: [facility] [address] Performing Lab: [facility] [address] MICROALBUMIN/C REATININE RATIO 251.1 mg/g H 0-29.9 MICROALBUMIN,Q UANTITATIVE 11.2 mg/dL RR UNAVAIL CREATININE URINE 44.60 mg/dL Mar 06, 2024 09:56 AM [facility] BASIC METABOLIC PANEL (non-fasting) Specimen Type: SERUM No comment entered. Ordering Provider: Sherrie CASTILLO Report Released Date/Time: Mar 06, 2024 09:36 AM Reporting Lab: [facility] [address] [facility] [address] Performing Lab: [facility] [address] [facility] [address] UREA NITROGEN 28 mg/dL H 7-25 GLUCOSE 130 mg/dL H 65-100 SODIUM 142 mmol/L 135-145 POTASSIUM 4.8 mmol/L 3.5-5.0 CHLORIDE 97 mmol/L L 100-110 CO2 33 meq/L H 20-30 CREATININE, Serum 1.00 mg/dL 0.50-1.40 eGFR(CKD-EPI 2020) 63 mL/min >60 Mar 06, 2024 09:56 AM [facility] CBC AND DIFF (AUTO) Specimen Type: BLOOD No comment entered. Ordering Provider: Sherrie CASTILLO Report Released Date/Time: Mar 06, 2024 09:36 AM Reporting Lab: [facility] [address] [facility] [address] Performing Lab: [facility] [address] [facility] [address] WBC 12.33 10*3/uL H 4.50-11.00 RBC 3.92 [...] 2024 09:26 AM 78 140/75 20 98 [place] [facility] [place] [facility] Social History: Smoking Status (Most current) [...] place. Date/Time Current Smoking Status Comment [facility] Mar 06, 2024 09:00 AM VA-TOBACCO FORMER USER [facility] Tobacco Use History This section includes a history of the smoking, or tobacco-related health factors, that were collected on or before the date of the Encounter. The data comes from the [place] facility where the Encounter took place. Date/Time Smoking Status/Tobac co Use Comment Facility Mar 06, 2024 09:00 AM VA-TOBACCO QUIT 15 YRS OR MORE [place] [facility] Mar 31, 2023 11:00 AM VA-TOBACCO FORMER USER [place] [facility] [place] [facility] Mar 31, 2023 11:00 AM VA-TOBACCO QUIT 1 TO < 5 YRS [place] [facility] [place] [facility] Mar 25, 2022 10:30 AM VA-TOBACCO NEVER USED OR [facility] [place] [facility] Mar 19, 2021 02:00 PM VA-TOBACCO FORMER USER [place] [facility] [place] [facility] Mar 19, 2021 02:00 PM VA-TOBACCO QUIT < 1 YEAR OR [facility]TR [place] [facility] Sep 20, 2018 11:24 AM VA-TOBACCO USE DECLINED TO ANSWER [place] [facility] [facility] Oct 21, 2017 08:13 AM QUIT TOBACCO USE IN PAST YEAR OR [facility] [facility] Dec 30, 2016 08:28 AM QUIT TOBACCO USE 1-7 YEARS AGO [place] [facility] [facility] Jun 04, 2016 08:43 AM QUIT TOBACCO USE 1-7 YEARS AGO [place] [facility] [facility] May 17, 2015 08:45 AM QUIT TOBACCO USE 1-7 YEARS AGO quit 2 years ago. [place] [facility] [facility] Jun 07, 2014 09:25 AM QUIT TOBACCO USE 1-7 YEARS AGO [place] [facility] [facility] November 30, 2013 08:44 AM QUIT TOBACCO USE IN PAST YEAR [facility] [place] [facility] May 22, 2013 10:10 AM QUIT TOBACCO USE IN PAST YEAR [place] [facility] [facility] December 01, 2012 01:54 PM QUIT TOBACCO USE IN PAST YEAR [facility] [place] [facility] Jun 07, 2012 08:16 AM V1-PT DECLINES TOBACCO CESSATION MEDS [facility] [place] [facility] Jun 07, 2012 08:16 AM V1-PT THINKING ABOUT QUIT TOBACCO USE [facility] [place] [facility] Jan 05, 2012 09:00 AM CURRENT SMOKER intermittenly [facility] [facility] Jan 05, 2012 09:00 AM V1-PT DECLINES REF TO TOBACCO CESS PRGM [facility] [place] [facility] Jan 05, 2012 09:00 AM V1-PT DECLINES TOBACCO CESSATION MEDS [facility] [place] [facility] Jan 05, 2012 09:00 AM V1-PT THINKING ABOUT QUIT TOBACCO USE [facility] [place] [facility] Feb 17, 2011 09:52 AM V1-PT DECLINES TOBACCO CESSATION MEDS [facility] [place] [facility] Feb 17, 2011 09:52 AM V1-PT THINKING ABOUT QUIT TOBACCO USE [facility] [place] [facility] Aug 13, 2010 11:31 AM QUIT TOBACCO USE IN PAST YEAR [facility] Feb 19, 2010 01:26 PM QUIT TOBACCO USE IN PAST YEAR [facility] Sep 13, 2009 11:04 AM QUIT TOBACCO USE IN PAST YEAR [facility] Feb 05, 2009 08:29 AM V1-PT DECLINES REF TO TOBACCO CESS PRGM [facility] Feb 05, 2009 08:29 AM V1-PT DECLINES TOBACCO CESSATION MEDS [facility] Feb 05, 2009 08:29 AM V1-PT THINKING ABOUT QUIT TOBACCO USE [facility] Aug 22, 2008 09:04 AM QUIT TOBACCO USE IN PAST YEAR [facility] Mar 12, 2008 10:40 AM V1-PT DECLINES REF TO TOBACCO CESS PRGM [facility] Mar 12, 2008 10:40 AM V1-PT DECLINES TOBACCO CESSATION MEDS [facility] Mar 12, 2008 10:40 AM V1-PT NOT INTERESTED IN QUIT TOBACCO USE [facility] Mar 08, 2008 09:37 AM CURRENT SMOKER smokes one pack a day for about 10 years ago. [facility] Encounter Notes: All associated encounter notes This section contains the clinical notes associated to the Encounter. Date/Time Encounter Note(s) Provider Source Mar 06, 2024 09:30 AM PREVENTIVE MEDICINE NURSING NOTE: LOCAL TITLE: CLINICAL REMINDERS/NURSING STANDARD TITLE: PREVENTIVE MEDICINE NURSING NOTE DATE OF NOTE: MAR 06, 2024@09:30 ENTRY DATE: MAR 06, 2024@09:30:33 AUTHOR: FABIOLA ARTEAGA COSIGNER: URGENCY: STATUS: COMPLETED Depression Screening: Perform [...] Signed: 03/06/2024 09:31 FABIOLA ARTEAGA [facility] [place] [facility] Mar 06, 2024 08:45 AM PHYSICIAN NOTE: LOCAL TITLE: MD NOTE STANDARD TITLE: PHYSICIAN NOTE DATE OF NOTE: MAR 06, 2024@08:45 ENTRY DATE: MAR 06, 2024@08:46:03 AUTHOR: KATY CASTILLO EXP COSIGNER: URGENCY: STATUS: COMPLETED HISTORY OF PRESENT ILLNESS: REID DAMIEN, is a 64 yo WHITE FEMALE [place] who presents at the OR at [facility]. multiple problems HPI. janet has many chronic problems. she had eval at [facility] and she was foung to have potassium [...] cardiac failure 9. AF- Atrial Fibrillation (SCT [id number]) 10. Drug abuse 11. Extreme obesity with alveolar hypoventilation 12. Impaired fasting glucose 13. Pulmonary hypertension 14. COPD - Chronic obstructive pulmonary disease 15. Polycythemia vera 16. Anxiety disorder 17. Edema 18. Osteoarthritis of knee 19. Opioid dependence (SNOMED CT 10320956) 20. Microscopic hematuria 21. Tobacco dependence, continuous (SNOMED CT 931568405) 22. Sleep apnea (SNOMED CT 10533736) 23. Varicose Veins 24. Hysterectomy 25. Hypertension (SNOMED CT 42317776) 26. Gastroesophageal Reflux Disorder 27. Inflammatory bowel disease 28. Injury to the Muscles of the Hand (Group IX Function: Forearm Muscles) (ICD- HISTORY: PERIOD OF SERVICE - [employer] FROM Jul TO Oct COMBAT SERVICE [...] Sig: ACTIVE 0.5ML INTRAMUSCULARLY NOW 6) Non-VA [id number]/VILANTERO L25MCG ACTIVE 30D INH Si INHALATION BY [...] cyst 4. hx of hyperkalemia and per [facility] records-vet has CKD Plan 1. continue current [...] of active outpatient prescriptions dispensed from this OR (local) and dispensed from another OR or DoD facility (remote) as well as [...] MD PHYSICIAN Signed: 03/06/2024 12:29 FAYE CASTILLO OR [facility]
--- OUTSIDE RECORDS SUMMARY | 2024-07-25 11:36 | XMS_ITS | Encounter Summary ---
Author Name [facility] of [place] Organization [place] Address [address] [place] [id number] Care Team Providers Care Marine Fireman Name Role Phone ROMANA CASTILLO Primary Care [...] Patient's Relationship to Policy Garcia [facility] (MEDICAID) [facility]ICAID [facility] May 14, 2009 [id number] SAMPLE,ROCCO MOORE PATIENT [facility] MEDICAID [facility] HUMAN [facility] May 14, 2009 [id number] SAMPLE,ROCCO MOORE PATIENT MEDICAID MEDICAID [facility] Jul 26, 2018 MEDICAI D [id number] SAMPLE,ROCCO MOORE PATIENT MEDICARE (WNR) MEDICARE (M) PART A November 24, 2015 PART A [id number] SAMPLE,ROCCO MOORE PATIENT MEDICARE (WNR) MEDICARE (M) PART B November 24, 2015 PART B [id number] ROCCO QUEZADA PATIENT Selected Encounter This [...] AMBULATORY - PSYCHIATRY CT [facility] [place] [facility] Mar 06, 2024 09:00 AM AMBULATORY - MEDICINE CT C N[facility]L [place] [facility] Apr 03, 2024 11:30 AM AMBULATORY - MEDICINE CT C N[facility]L [place] [facility] Apr 13, 2024 11:00 AM AMBULATORY - PSYCHIATRY CT [facility] [place] [facility] Apr 13, 2024 02:00 PM AMBULATORY - MEDICINE CT C NTRL [place] [facility] Apr 13, 2024 03:00 PM AMBULATORY - MEDICINE CT C NTRL [place] [facility] May 02, 2024 11:00 AM AMBULATORY - MEDICINE CT C N[facility]L [place] [facility] May 15, 2024 11:30 AM AMBULATORY - PSYCHIATRY CT CN[facility]L [place] [facility] May 25, 2024 11:30 AM AMBULATORY - MEDICINE CT C N[place]L [place] [facility] Jul 13, 2024 10:00 AM AMBULATORY - MEDICINE CT C N[facility]L [place] [facility] Aug 03, 2024 01:00 PM AMBULATORY - PSYCHIATRY CT [facility] [place] [facility] [...] Order BASIC METABOLIC PANEL (non-fasting) BLOOD (SST-SERUM) [facility] Jan 17, 2024 12:00 AM Laboratory - Chemistry Order LIPID PANEL, NON FASTING BLOOD (SST-SERUM) [facility] Jan 17, 2024 12:00 AM Laboratory - Chemistry Order LIVER FUNCTION BLOOD (SST-SERUM) [facility] Jan 17, 2024 12:00 AM Laboratory - Chemistry Order TSH BLOOD (SST-SERUM) [facility] Jan 17, 2024 12:00 AM Laboratory - Chemistry Order MICROALBUMIN CREATININE RATIO PANEL URINE (RANDOM) [facility] Lab Results: +/- 30 days of [...] Range Comment Mar 06, 2024 09:56 AM [facility] VITAMIN D (25-OH) Specimen Type: SERUM No comment entered. Ordering Provider: Sherrie CASTILLO Report Released Date/Time: Mar 06, 2024 09:36 AM Reporting Lab: [address] [address] Performing Lab: [address] [address] VITAMIN D (25-OH) 20 ng/mL 20-50 Mar 06, 2024 09:56 AM [facility] IRON & TIBC PANEL Specimen Type: SERUM No comment entered. Ordering Provider: Sherrie CASTILLO Report Released Date/Time: Mar 06, 2024 09:36 AM Reporting Lab: [address] [address] Performing Lab: [facility] [place] [facility] [address] [facility] [address] TIBC 364 ug/dL 204-475 IRON 36 ug/dL L 40-160 Transferrin Saturation 9.9 L 20.0-50.0 Mar 06, 2024 09:56 AM [facility] [place] [facility] FERRITIN Specimen Type: SERUM No comment entered. Ordering Provider: Sherrie CASTILLO Report Released Date/Time: Mar 06, 2024 09:36 AM Reporting Lab: [place] CN[place]L [place] [facility] [address] [facility] [address] Performing Lab: [facility] [place] [facility] [address] [facility] [address] FERRITIN 52 ng/mL 10-200 Mar 06, 2024 09:56 AM [facility]ERN [facility] HEMOGLOBIN A1C PANEL [...] 2024 09:36 AM Reporting Lab: [facility]ITALR[facility]TRN [place] [facility] [address] [facility] [address] Performing Lab: [facility] BLOUNTTRN [place] [address] [address] HEMOGLOBIN A1C 5.4 4.0-5.6 Mar 06, 2024 09:56 AM [facility]ITALRNOR[facility]WE[facility] CENTERN [facility] MICROALBUMIN CREATININE RATIO PANEL Specimen Type: URINE No comment entered. Ordering Provider: Sherrie CASTILLO Report Released Date/Time: Mar 06, 2024 09:36 AM Reporting Lab: [facility]ITALRL [facility]N [place] [facility] [address] [facility] [address] Performing Lab: [facility]ITALRST[facility] VINC[facility] BLOUNTTRN [facility]OSPITALCHUSETS [address] [address] MICROALBUMIN/C REATININE RATIO 251.1 mg/g H 0-29.9 MICROALBUMIN,Q UANTITATIVE 11.2 mg/dL RR UNAVAIL CREATININE URINE 44.60 mg/dL Mar 06, 2024 09:56 AM [facility] BASIC METABOLIC PANEL (non-fasting) Specimen Type: SERUM No comment entered. Ordering Provider: Sherrie CASTILLO Report Released Date/Time: Mar 06, 2024 09:36 AM Reporting Lab: [facility] [address] [facility] [address] Performing Lab: [address] [address] UREA NITROGEN 28 mg/dL H 7-25 GLUCOSE 130 mg/dL H 65-100 SODIUM 142 mmol/L 135-145 POTASSIUM 4.8 mmol/L 3.5-5.0 CHLORIDE 97 mmol/L L 100-110 CO2 33 meq/L H 20-30 CREATININE, Serum 1.00 mg/dL 0.50-1.40 eGFR(CKD-EPI 2020) 63 mL/min >60 Mar 06, 2024 09:56 AM [facility] CBC AND DIFF (AUTO) Specimen Type: BLOOD No comment entered. Ordering Provider: Sherrie CASTILLO Report Released Date/Time: Mar 06, 2024 09:36 AM Reporting Lab: [facility] [address] [facility] [address] Performing Lab: [address] [address] WBC 12.33 10*3/uL H 4.50-11.00 RBC 3.92 [...] took place. Date/Time Current Smoking Status Comment [facility] Mar 31, 2023 11:00 AM VA-TOBACCO FORMER USER CT CNTR [facility] Tobacco Use History This section includes a history of the smoking, or tobacco-related health factors, that were collected on or before the date of the Encounter. The data comes from the [place] facility where the Encounter took place. Date/Time Smoking Status/Tobac co Use Comment Facility Mar 31, 2023 11:00 AM VA-TOBACCO QUIT 1 TO < [address] [place] [facility] Mar 25, 2022 10:30 AM VA-TOBACCO NEVER USED CT CNTRL [place] [facility] Mar 19, 2021 02:00 PM VA-TOBACCO FORMER USER CT CNTRL [place] [facility] Mar 19, 2021 02:00 PM VA-TOBACCO QUIT < [address] [place] [facility] Sep 20, 2018 11:24 AM VA-TOBACCO USE DECLINED TO ANSWER CT CN[facility]L [place] [facility] Oct 21, 2017 08:13 AM QUIT TOBACCO USE IN PAST YEAR CT CNTR [place] [facility] Dec 30, 2016 08:28 AM QUIT TOBACCO USE 1-[address] [place]TR [place] [facility] Jun 04, 2016 08:43 AM QUIT TOBACCO USE 1-[address] [place]TR [place] [facility] May 17, 2015 08:45 AM QUIT TOBACCO USE 1-7 YEARS AGO quit [address] [place] [facility] Jun 07, 2014 09:25 AM QUIT TOBACCO USE 1-[address] [place]TR [place] [facility] November 30, 2013 08:44 AM QUIT TOBACCO USE IN PAST YEAR [place] CNTR [place] [facility] May 22, 2013 10:10 AM QUIT TOBACCO USE IN PAST YEAR [facility] [place] [facility] December 01, 2012 01:54 PM QUIT TOBACCO USE IN PAST YEAR [facility] MAR[place]ATRN [place] [facility] Jun 07, 2012 08:16 AM V1-PT DECLINES TOBACCO CESSATION MEDS [facility] [place] [facility] Jun 07, 2012 08:16 AM V1-PT THINKING ABOUT QUIT TOBACCO USE [facility] [place] [facility] Jan 05, 2012 09:00 AM CURRENT SMOKER intermittenly [facility] [place] [facility] Jan 05, 2012 09:00 AM V1-PT DECLINES REF TO TOBACCO CESS PRGM [facility] [place] [facility] Jan 05, 2012 09:00 AM V1-PT DECLINES TOBACCO CESSATION MEDS [facility] [place] [facility] Jan 05, 2012 09:00 AM V1-PT THINKING ABOUT QUIT TOBACCO USE [facility] [place] [facility] Feb 17, 2011 09:52 AM V1-PT DECLINES TOBACCO CESSATION MEDS [facility] [place] [facility] Feb 17, 2011 09:52 AM V1-PT THINKING ABOUT QUIT TOBACCO USE [facility] [place] [facility] Aug 13, 2010 11:31 AM QUIT TOBACCO USE IN PAST YEAR [facility] [place] [facility] Feb 19, 2010 01:26 PM QUIT TOBACCO USE IN PAST YEAR [facility] Sep 13, 2009 11:04 AM QUIT TOBACCO [facility]ST [facility]AR [facility] Feb 05, 2009 08:29 AM V1-PT DECLINES REF TO TOBACCO [facility]ESS [facility] Feb 05, 2009 08:29 AM V1-PT DECLINES TOBACCO CESSATION MEDS [facility] Feb 05, 2009 08:29 AM V1-PT THINKING ABOUT QUIT TOBACCO USE [facility] Aug 22, 2008 09:04 AM QUIT TOBACCO USE IN PAST YEAR [facility] Mar 12, 2008 10:40 AM V1-PT DECLINES REF TO TOBACCO CESS PRGM [facility] Mar 12, 2008 10:40 AM V1-PT DECLINES TOBACCO CESSATION MEDS [facility] Mar 12, 2008 10:40 AM V1-PT NOT INTERESTED IN QUIT TOBACCO USE [facility] Mar 08, 2008 09:37 AM CURRENT SMOKER smokes one pack a day for about 10 years ago. [facility] Encounter Notes: All associated encounter [...] REQUIRED Electronically Filed: 03/08/2024 by: SURAJ LUNA [facility]
--- OUTSIDE RECORDS SUMMARY | 2024-07-25 11:36 | XMS_ITS ---
Author Name [facility] [place] [facility] [place] [facility] [facility] [place] Address [address] [place] [address] Care Team Providers Care Print Project Manager Name Role Phone ROMANA CASTILLO Primary [...] to Policy [facility] (MEDICAID) MEDICAID [place] DEPT HUMAN [facility] May 14, 2009 [id number] SAMPLE,ROCCO MOORE PATIENT [facility] May 14, 2009 [id number] SAMPLE,ROCCO MOORE PATIENT MEDICAID MEDICAID [facility] ESTEF[facility] Jul 26, 2018 MEDICAI D [id number] SAMPLE,ROCCO MOORE PATIENT MEDICARE (WNR) MEDICARE (M) PART A November 24, 2015 PART A [id number] SAMPLE,ROCCO MOORE PATIENT MEDICARE (WNR) MEDICARE (M) PART B November 24, 2015 PART B [id number] SAMPLE,ROCCO MOORE PATIENT Selected Encounter This [...] - MEDICINE [facility] Apr 03, 2024 11:30 AM AMBULATORY - MEDICINE [facility] Apr 13, 2024 11:00 AM AMBULATORY - PSYCHIATRY [facility] Apr 13, 2024 02:00 PM AMBULATORY - MEDICINE [facility] Apr 13, 2024 03:00 PM AMBULATORY - MEDICINE [facility] May 02, 2024 11:00 AM AMBULATORY - MEDICINE [facility] May 15, 2024 11:30 AM AMBULATORY - PSYCHIATRY [facility] May 25, 2024 11:30 AM AMBULATORY - MEDICINE [facility] Jul 13, 2024 10:00 AM AMBULATORY - MEDICINE [facility] Aug 03, 2024 01:00 PM AMBULATORY - PSYCHIATRY [facility] Aug 24, 2024 11:00 AM AMBULATORY - MEDICINE [facility] Lab Results: +/- 30 days of the encounter This section includes the Chemistry and Hematology Lab Results on record with [place] for the patient. Radiology Reports and Pathology Reports are provided separately, in subsequent sections. Lab Results This section contains the Chemistry/Hematology Results that were resulted 30 days before or 30 daysafter the date of the Encounter. Date/Time Source Result Type Result - Unit Interpretation Reference Range Comment Mar 06, 2024 09:56 AM [facility] VITAMIN D (25-OH) Specimen Type: SERUM No comment entered. Ordering Provider: Sherrie CASTILLO Report Released Date/Time: Mar 06, 2024 09:36 AM Reporting [facility] [address] Performing Lab: [facility] [address] [address] VITAMIN D (25-OH) 20 ng/mL 20-50 Mar 06, 2024 09:56 AM [facility] IRON & TIBC PANEL Specimen Type: SERUM No comment entered. Ordering Provider: Sherrie CASTILLO Report Released Date/Time: Mar 06, 2024 09:36 AM Reporting Lab: [facility] [address] [address] Performing Lab: [facility] [address] [address] TIBC 364 ug/dL 204-475 IRON 36 ug/dL L 40-160 Transferrin Saturation 9.9 L 20.0-50.0 Mar 06, 2024 09:56 AM [facility] FERRITIN Specimen Type: SERUM No comment entered. Ordering Provider: Sherrie CASTILLO Report Released Date/Time: Mar 06, 2024 09:36 AM Reporting [facility]: [facility] [address] [address] Performing Lab: [facility] [address] [address] FERRITIN 52 ng/mL 10-200 Mar 06, 2024 09:56 AM [facility] HEMOGLOBIN A1C PANEL Specimen Type: BLOOD Comment: [...] Mar 06, 2024 09:36 AM Reporting Lab: [address] [address] Performing Lab: [address] [address] HEMOGLOBIN A1C 5.4 4.0-5.6 Mar 06, 2024 09:56 AM [facility] MICROALBUMIN CREATININE RATIO PANEL Specimen Type: URINE No comment entered. Ordering Provider: Sherrie CASTILLO Report Released Date/Time: Mar 06, 2024 09:36 AM Reporting Lab: [address] [address] Performing Lab: [address] [address] MICROALBUMIN/C REATININE RATIO 251.1 mg/g H 0-29.9 MICROALBUMIN,Q UANTITATIVE 11.2 mg/dL RR UNAVAIL CREATININE URINE 44.60 mg/dL Mar 06, 2024 09:56 AM [facility] BASIC METABOLIC PANEL (non-fasting) Specimen Type: SERUM No comment entered. Ordering Provider: Sherrie CASTILLO Report Released Date/Time: Mar 06, 2024 09:36 AM Reporting Lab: [address] [address] Performing Lab: [address] [address] UREA NITROGEN 28 mg/dL H 7-25 GLUCOSE 130 mg/dL H 65-100 SODIUM 142 mmol/L 135-145 POTASSIUM 4.8 mmol/L 3.5-5.0 CHLORIDE 97 mmol/L L 100-110 CO2 33 meq/L H 20-30 CREATININE, Serum 1.00 mg/dL 0.50-1.40 eGFR(CKD-EPI 2020) 63 mL/min >60 Mar 06, 2024 09:56 AM [facility] CBC AND DIFF (AUTO) Specimen Type: BLOOD No comment entered. Ordering Provider: Sherrie CASTILLO Report Released Date/Time: Mar 06, 2024 09:36 AM Reporting Lab: [facility] [address] [address] Performing Lab: [facility] [address] [address] WBC 12.33 10*3/uL H 4.50-11.00 RBC 3.92 [...] AM VA-TOBACCO [facility] Tobacco Use History This [...] < 5 YRS [facility] Mar 25, 2022 10:30 AM VA-TOBACCO NEVER USED [facility] Mar 19, 2021 02:00 PM VA-TOBACCO FORMER USER [facility] Mar 19, 2021 02:00 PM VA-TOBACCO QUIT < 1 YEAR [facility] Sep 20, 2018 11:24 AM VA-TOBACCO USE DECLINED TO ANSWER [facility] Oct 21, 2017 08:13 AM QUIT TOBACCO USE IN PAST YEAR [facility] Dec 30, 2016 08:28 AM QUIT TOBACCO USE 1-7 YEARS AGO [facility] Jun 04, 2016 08:43 AM QUIT TOBACCO USE 1-7 YEARS AGO [facility] May 17, 2015 08:45 AM QUIT TOBACCO USE 1-7 YEARS AGO quit 2 years ago. [facility] Jun 07, 2014 09:25 AM QUIT TOBACCO USE 1-7 YEARS AGO [facility] November 30, 2013 08:44 AM QUIT TOBACCO USE IN PAST YEAR [facility] May 22, 2013 10:10 AM QUIT TOBACCO USE IN PAST YEAR [facility] December 01, 2012 01:54 PM QUIT TOBACCO USE IN PAST YEAR [facility] Jun 07, 2012 08:16 AM V1-PT DECLINES [facility]BACCO [facility]ESSATION [facility] Jun 07, 2012 08:16 AM V1-PT THINKING ABOUT QUIT TOBACCO USE [facility] Jan 05, 2012 09:00 AM CURRENT SMOKER intermittenly [facility] Jan 05, 2012 09:00 AM V1-PT DECLINES REF [facility] Jan 05, 2012 09:00 AM V1-PT DECLINES TOBACCO CESSATION MEDS [facility] Jan 05, 2012 09:00 AM V1-PT THINKING ABOUT QUIT TOBACCO USE [facility] Feb 17, 2011 09:52 AM V1-PT DECLINES TOBACCO CESSATION MEDS [facility] Feb 17, 2011 09:52 AM V1-PT THINKING ABOUT QUIT TOBACCO USE [facility] Aug 13, 2010 11:31 AM QUIT TOBACCO USE [facility]ST YEAR [facility] Feb 19, 2010 01:26 PM QUIT TOBACCO USE IN PAST YEAR [facility] Sep 13, 2009 11:04 AM QUIT TOBACCO USE IN PAST YEAR [facility] Feb 05, 2009 08:29 AM V1-PT DECLINES REF TO TOBACCO CESS [facility] Feb 05, 2009 08:29 AM V1-PT DECLINES TOBACCO CESSATION [facility] Feb 05, 2009 08:29 AM V1-PT THINKING ABOUT QUIT TOBACCO USE [facility] Aug 22, 2008 09:04 AM QUIT TOBACCO USE IN PAST YEAR [facility] Mar 12, 2008 10:40 AM V1-PT DECLINES REF TO TOBACCO CESS PRGM [facility] Mar 12, 2008 10:40 AM V1-PT DECLINES TOBACCO CESSATION MEDS [facility] Mar 12, 2008 10:40 AM V1-PT NOT INTERESTED IN QUIT TOBACCO USE [facility] Mar 08, 2008 09:37 AM CURRENT SMOKER smokes one pack a day for about 10 years ago. [facility] Encounter Notes: All associated encounter notes This section contains the clinical notes associated to the Encounter. Date/Time Encounter Note(s) Provider Source Mar 04, 2024 05:10 PM PHARMACY NOTE: LOCAL TITLE: PHARMACY CUSTOMER CARE MEDICATION RENEWAL STANDARD TITLE: PHARMACY NOTE DATE OF NOTE: MAR 04, 2024@17:10 ENTRY DATE: MAR 04, 2024@17:10:47 AUTHOR: ARTURO GLEASON I EXP COSIGNER: URGENCY: STATUS: COMPLETED Date: Feb Division: [facility] referred by Pharmacy Call Center for medication renewal: Controlled substance Medications requested: [id number] OXYCODONE HCL 5MG TAB NOT SA Defer to specialty clinic To be picked up. Please review and renew if appropriate. *This note was generated by [facility]/[place] Pharmacy Customer Care. If you have any questions or need assistance, do not contact this author. Please refer all questions to your local, on-site pharmacy departments. /divya/ Arturo Gleason CPhT Clinical Rehabilitation Coordinator, [place]/Pharmacy Customer Care Signed: 03/04/2024 17:11 Receipt Acknowledged By: 03/07/2024 14:02 /divya/ Gal Solorio MD STAFF PHYSICIAN ARTURO GLEASON I [facility]
--- OUTSIDE RECORDS SUMMARY | 2024-07-25 11:37 | XMS_ITS | Encounter Summary ---
Author Name [facility] [facility] [place] Organization [facility] [place] Address [address] [place] [id number] Care Team Providers Care Heat [employer] Name Role Phone ROMANA CASTILLO Primary Care [...] Garcia's Name Patient's Relationship to Policy Garcia [facility] (MEDICAID) MEDICAID [place] DEPT [facility] May 14, 2009 [id number] SAMPLE,ROCCO MOORE PATIENT [facility]ID [facility] May 14, 2009 [id number] SAMPLE,ROCCO MOORE PATIENT MEDICAID MEDICAID [facility] Jul 26, 2018 MEDICAI D [id number] SAMPLE,ROCCO MOORE PATIENT MEDICARE (WNR) MEDICARE (M) PART A November 24, 2015 PART A [id number] SAMPLE,ROCCO MOORE PATIENT MEDICARE (WNR) MEDICARE (M) PART B November 24, 2015 PART B [id number] SAMPLE,ROCCO MOORE PATIENT Selected Encounter This section includes the information on record at [place] for the Encounter. Date/Time Encounter Type Encounter Description Reason Provider Source Mar 30, 2024 11:27 AM QNHP OL DIG ASSMT&MGMT 5-10 PAIN CLINIC ICD-10-CM G89.4 Chronic pain syndrome TEPURBANO IHE Encounter Template Text not used by [place] Assessments - Encounter Diagnoses This section includes the primary and secondary diagnoses documented for the Encounter. Date/Time Primary/Secondary Diagnosis Diagnosis Name Provider Source Mar 30, 2024 11:51 AM PRIMARY Chronic pain syndrome URBANO BOYLE [place] [facility] [place] [facility] Plan of Treatment: Future Appointments (+ [...] - MEDICINE [place] [facility] [place] [facility] Apr 13, 2024 11:00 AM AMBULATORY - PSYCHIATRY [place] [facility] [place] [facility] Apr 13, 2024 02:00 PM AMBULATORY - MEDICINE [place] [facility] [place] [facility] Apr 13, 2024 03:00 PM AMBULATORY - MEDICINE [place] [facility] [facility] May 02, 2024 11:00 AM AMBULATORY - MEDICINE [place] [facility] [place] [facility] May 15, 2024 11:30 AM AMBULATORY - PSYCHIATRY [facility] [place] [facility] May 25, 2024 11:30 AM AMBULATORY - MEDICINE [place] [facility] [place] [facility] Jul 13, 2024 10:00 AM AMBULATORY - MEDICINE [place] [facility] [place] [facility] Aug 03, 2024 01:00 PM AMBULATORY - PSYCHIATRY [place] [facility] [place] [facility] Aug 24, 2024 11:00 AM AMBULATORY - MEDICINE [place] [facility] [place] [facility] Sep 07, 2024 11:30 AM [facility]UL[facility]ORY - [facility]INE [facility] Lab Results: +/- 30 days of the encounter This section includes the Chemistry and Hematology Lab Results on record with [place] for the patient. Radiology Reports and Pathology Reports are provided separately, in subsequent sections. Lab Results This section contains the Chemistry/Hematology Results that were resulted 30 days before or 30 daysafter the date of the Encounter. Date/Time Source Result Type Result - Unit Interpretation Reference Range Comment Mar 06, 2024 09:56 AM [facility] IRON & TIBC PANEL Specimen Type: SERUM No comment entered. Ordering Provider: Sherrie CASTILLO Report Released Date/Time: Mar 06, 2024 09:36 AM Reporting Lab: [facility] [address] Performing Lab: [facility] [address] TIBC 364 ug/dL 204-475 IRON 36 ug/dL L 40-160 Transferrin Saturation 9.9 L 20.0-50.0 Mar 06, 2024 09:56 AM [facility] FERRITIN Specimen Type: SERUM No comment entered. Ordering Provider: Sherrie CASTILLO Report Released Date/Time: Mar 06, 2024 09:36 AM Reporting Lab: [facility] [address] [address] Performing Lab: [facility] [address] [address] FERRITIN 52 ng/mL 10-200 Mar 06, 2024 09:56 AM [facility] VITAMIN D (25-OH) Specimen Type: SERUM No comment entered. Ordering Provider: Sherrie CASTILLO Report Released Date/Time: Mar 06, 2024 09:36 AM Reporting Lab: [facility] [address] [address] Performing Lab: [facility] [address] [address] VITAMIN D (25-OH) 20 ng/mL 20-50 Mar 06, 2024 09:56 AM [facility] HEMOGLOBIN A1C PANEL Specimen Type: BLOOD [...] Mar 06, 2024 09:36 AM Reporting Lab: [address] [address] Performing Lab: [address] [address] HEMOGLOBIN A1C 5.4 4.0-5.6 Mar 06, 2024 09:56 AM [facility] MICROALBUMIN CREATININE RATIO PANEL Specimen Type: URINE No comment entered. Ordering Provider: Sherrie CASTILLO Report Released Date/Time: Mar 06, 2024 09:36 AM Reporting Lab: [address] [address] Performing Lab: [address] [address] MICROALBUMIN/C REATININE RATIO 251.1 mg/g H 0-29.9 MICROALBUMIN,Q UANTITATIVE 11.2 mg/dL RR UNAVAIL CREATININE URINE 44.60 mg/dL Mar 06, 2024 09:56 AM [facility] BASIC METABOLIC PANEL (non-fasting) Specimen Type: SERUM No comment entered. Ordering Provider: Sherrie CASTILLO Report Released Date/Time: Mar 06, 2024 09:36 AM Reporting Lab: [address] [address] Performing Lab: [address] [address] UREA NITROGEN 28 mg/dL H 7-25 GLUCOSE 130 mg/dL H 65-100 SODIUM 142 mmol/L 135-145 POTASSIUM 4.8 mmol/L 3.5-5.0 CHLORIDE 97 mmol/L L 100-110 CO2 33 meq/L H 20-30 CREATININE, Serum 1.00 mg/dL 0.50-1.40 eGFR(CKD-EPI 2020) 63 mL/min >60 Mar 06, 2024 09:56 AM [facility] CBC AND DIFF (AUTO) Specimen Type: BLOOD No comment entered. Ordering Provider: Sherrie CASTILLO Report Released Date/Time: Mar 06, 2024 09:36 AM Reporting Lab: [facility] [address] [facility] [address] Performing Lab: [facility] [address] [facility] [address] WBC 12.33 10*3/uL H 4.50-11.00 RBC 3.92 [...] 06, 2024 09:00 AM VA-TOBACCO FORMER USER [place] [facility] [place] [facility] Tobacco Use History This section includes a history of the smoking, or tobacco-related health factors, that were collected on or before the date of the Encounter. The data comes from the [place] facility where the Encounter took place. Date/Time Smoking Status/Tobac co Use Comment [facility] Mar 06, 2024 09:00 AM VA-TOBACCO QUIT 15 YRS OR MORE [place] [facility] [place] [facility] Mar 31, 2023 11:00 AM VA-TOBACCO FORMER USER [place] [facility] [place] [facility] Mar 31, 2023 11:00 AM VA-TOBACCO QUIT 1 TO < 5 YRS [place] [facility] [place] [facility] Mar 25, 2022 10:30 AM VA-TOBACCO NEVER USED [place] [facility] [place] [facility] Mar 19, 2021 02:00 PM VA-TOBACCO FORMER USER [place] [facility] [place] [facility] Mar 19, 2021 02:00 PM VA-TOBACCO QUIT < 1 YEAR [place] [facility] [place] [facility] Sep 20, 2018 11:24 AM VA-TOBACCO USE DECLINED TO ANSWER [place] [facility] [place] [facility] Oct 21, 2017 08:13 AM QUIT TOBACCO USE IN PAST YEAR [place] [facility] [place] [facility] Dec 30, 2016 08:28 AM QUIT TOBACCO USE 1-7 YEARS AGO [place] [facility] [place] [facility] Jun 04, 2016 08:43 AM QUIT TOBACCO USE 1-7 YEARS AGO [place] [facility] [place] [facility] May 17, 2015 08:45 AM QUIT TOBACCO USE 1-7 YEARS AGO quit 2 years ago. [place] [facility] [place] [facility] Jun 07, 2014 09:25 AM QUIT TOBACCO USE 1-7 YEARS AGO [facility] [place] [facility] November 30, 2013 08:44 AM QUIT TOBACCO USE IN PAST YEAR [place] [facility] [place] [facility] May 22, 2013 10:10 AM QUIT TOBACCO USE IN PAST YEAR [facility] [place] [facility] December 01, 2012 01:54 PM QUIT TOBACCO USE IN PAST YEAR [place] [facility] [place] [facility] Jun 07, 2012 08:16 AM V1-PT DECLINES TOBACCO CESSATION MEDS [facility] [place] [facility] Jun 07, 2012 08:16 AM V1-PT THINKING ABOUT QUIT TOBACCO USE [facility] [place] [facility] Jan 05, 2012 09:00 AM CURRENT SMOKER intermittenly [place] [facility] [place] [facility] Jan 05, 2012 09:00 AM V1-PT DECLINES REF TO TOBACCO CESS [facility] [place] [facility] Jan 05, 2012 09:00 AM V1-PT DECLINES TOBACCO CESSATION MEDS [facility] [place] [facility] Jan 05, 2012 09:00 AM V1-PT THINKING ABOUT QUIT [facility]AC[facility] [place] [facility] Feb 17, 2011 09:52 AM V1-PT DECLINES TOBACCO CESSATION MEDS [place] [facility] [place] [facility] Feb 17, 2011 09:52 AM V1-PT THINKING ABOUT QUIT TOBACCO USE [place] [facility] [place] [facility] Aug 13, 2010 11:31 AM QUIT TOBACCO USE IN PAST YEAR [place] [facility] [place] [facility] Feb 19, 2010 01:26 PM QUIT TOBACCO USE IN PAST YEAR [place] [facility] [place] [facility] Sep 13, 2009 11:04 AM QUIT TOBACCO USE IN PAST YEAR [place] [facility] [place] [facility] Feb 05, 2009 08:29 AM V1-PT DECLINES REF TO TOBACCO CESS PRGM [place] [facility] [place] [facility] Feb 05, 2009 08:29 AM V1-PT DECLINES TOBACCO CESSATION MEDS [facility] [place] [facility] Feb 05, 2009 08:29 AM V1-PT THINKING ABOUT QUIT TOBACCO USE [facility] [place] [facility] Aug 22, 2008 09:04 AM QUIT [...] of controlled substances prescribed outside of the [place], and any additional information that may become available, as an important component of standard clinical care and in accordance with [facility] policy 04/21/23 10:23 Gal Solorio MD PDMP [facility] [place] 06/24/23 11:32 Gal Solorio MD PDMP [facility] [place] 06/30/23 08:25 Mateo Scott MD, MD PDMP [facility] [place] 07/01/23 14:06 Mateo Scott MD, MD PDMP [facility] [place] 07/27/23 14:15 Gal Solorio MD PDMP [facility] [place] 08/05/23 16:12 Mateo Scott MD, MD PDMP [facility] [place] 08/18/23 12:39 Gal Solorio MD PDMP [facility] [place] 09/08/23 15:27 Urbano Boyle PDMP [facility] [place] 09/21/23 13:55 SoniaMateo jones MD, MD PDMP [facility] [place] 09/22/23 13:16 Gal Solorio MD PDMP [facility] [place] 10/06/23 10:21 Gal Solorio MD PDMP [facility] [place] 10/07/23 07:56 SoniaMateo jones MD, MD PDMP [facility] [place] 11/04/23 11:04 Gal Solorio MD PDMP [facility] [place] 11/17/23 09:41 Gal Solorio MD PDMP [facility] [place] 12/07/23 15:50 Gal Solorio MD PDMP [facility] [place] 12/16/23 10:20 [facility],Mateo Araujo MD, MD PDMP [place] [place] 12/27/23 07:59 [facility] PDMP [facility] [place] 12/31/23 08:08 SoniaMateo MD, MD PDMP [facility] [place] 01/03/24 09:30 [facility] PDMP [facility] [place] 01/04/24 09:19 Gal Solorio MD PDMP [facility] [place] 01/26/24 10:04 Gal Solorio MD PDMP [facility] [place] 02/14/24 09:59 [facility],Mateo Araujo MD, MD PDMP [facility] [place] 03/06/24 10:25 Jose E Suarez MD PDMP [facility] [place] 03/30/24 11:27 Urbano Boyle PDMP [facility] [place] 03/30/24 11:49 TepUrbano PDMP [facility] [place] Urine Drug Screen: A urine drug screen [...] 11:55 Receipt Acknowledged By: 03/30/2024 12:03 /divya/ JOSE E SUAREZ MD PHYSICIAN URBANO BOYLE [facility] Mar 30, 2024 11:30 AM ACCOUNTING OF [...] standard clinical care, and in accordance with [facility] policy. Patient information was shared with the PDMP [place]. [facility] in the last 90 days are noted. Safety concerns will be discussed with the patient and documented as part of ongoing treatment planning. Had surgery done with [facility] on 03/17/24. Got rx for oxycodone 15mg IR #42 for 7 days supply on 03/21/24. 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 03/21/2024 1 03/21/2024 Oxycodone Hcl (Ir) 15 Mg Tab 42.00 7 Sa Del [id number] [place] (9210) 0/0 135.00 MME Medicare [place] 03/06/2024 1 01/03/2024 Temazepam 30 Mg Capsule 30.00 30 Ar Mon [id number] [place] (4909) 07/28 /[place] 03/06/2024 1 03/06/2024 Oxycodone Hcl (Ir) 5 Mg Tablet 224.00 28 Se Kup [id number] [place] (4904) 0/0 60.00 MME /[place] 03/04/2024 1 02/14/2024 Clonazepam 0.5 Mg Tablet 120.00 30 Ar Mon [id number] [place] (4904) 1/ /[place] 02/16/2024 1 02/14/2024 Clonazepam 0.5 Mg Tablet 120.00 30 Ar Mon [id number] [place] (4904) 0/3 /[place] 02/14/2024 1 11/17/2023 Buprenorphine 2 Mg Tablet Sl 240.00 30 Wi Cut [id number] [place] (4904) 3 16.00 mg /[place] 01/31/2024 1 01/03/2024 Temazepam 30 Mg Capsule 30.00 30 Ar Mon [id number] [place] (4904) 0/ /[place] 01/31/2024 1 01/26/2024 Oxycodone Hcl (Ir) 5 Mg Tablet 224.00 28 Wi Cut [id number] [place] (4904) 0/0 60.00 MME /[place] 01/20/2024 1 11/17/2023 Buprenorphine 2 Mg Tablet Sl 240.00 30 Wi Cut [id number] [place] (4904) 2 16.00 mg /[place] 01/20/2024 1 01/03/2024 Clonazepam 0.5 Mg Tablet 120.00 30 Ar Mon [id number] [place] (4904) 0/1 /[place] 01/04/2024 1 01/04/2024 Oxycodone Hcl (Ir) 5 Mg Tablet 336.00 28 Wi Cut [id number] [place] (4904) 0/0 90.00 MME /[place] 12/31/2023 1 11/17/2023 Buprenorphine 2 Mg Tablet Sl 240.00 30 Wi Cut [id number] [place] (4904) 1 16.00 mg /[place] 12/31/2023 1 10/07/2023 Temazepam 30 Mg Capsule 30.00 30 Ar Mon [id number] [place] (4904) 3/ /[place] 12/16/2023 1 12/16/2023 Clonazepam 0.5 Mg Tablet 28.00 7 Ar Mon [id number] [place] (4904) 0/0 /[place] 12/15/2023 1 10/07/2023 Clonazepam 0.5 Mg Tablet 60.00 30 Ar Mon [id number] [place] (5614) 2/ /[place] 12/08/2023 1 12/07/2023 Oxycodone Hcl (Ir) 5 Mg Tablet 336.00 28 Wi Cut [id number] [place] (4704) 0/0 90.00 MME /[place] 11/26/2023 1 11/17/2023 Buprenorphine 2 Mg Tablet Sl 240.00 30 Wi Cut [id number] [place] (6124) 0/5 16.00 mg /VA [place] 11/25/2023 1 10/07/2023 Temazepam 30 Mg Capsule 30.00 30 Ar Mon [id number] [place] (0964) 2/ /VA [place] /divya/ URBANO BOYLE, PHARM.D CLINICAL PHARMACIST PRACTITIONER Signed: 03/30/2024 11:51 URBANO BOYLE [facility] [place] [facility]
--- OUTSIDE RECORDS SUMMARY | 2024-07-25 11:37 | XMS_ITS | Encounter Summary ---
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 Organization [place] Address [address] [place] [address] Care Team Providers Care Medical Insurance Clerk Name Role Phone ROMANA CASTILLO [...] to Policy Garcia [facility] (MEDICAID) [facility]ID [facility] May 14, 2009 [id number] SAMPLE,ROCCO MOORE PATIENT [facility] MEDICAID [facility] May 14, 2009 [id number] SAMPLE,ROCCO MOORE PATIENT MEDICAID MEDICAID [facility] Jul 26, 2018 MEDICAI D [id number] SAMPLE,ROCCO MOORE PATIENT MEDICARE (WNR) MEDICARE (M) PART A November 24, 2015 PART A [id number] [phone] [id number] SAMPLE,ROCCO MOORE PATIENT MEDICARE (WNR) MEDICARE (M) PART B November 24, 2015 PART B [id number] [id number] [id number] ROCCO QUEZADA PATIENT Selected Encounter This [...] AMBULATORY - PSYCHIATRY [place] [facility] [place] [facility] Apr 13, 2024 02:00 PM AMBULATORY - MEDICINE [place] [facility] [place] [facility] Apr 13, 2024 03:00 PM AMBULATORY - MEDICINE [place] [facility] [place] [facility] May 02, 2024 11:00 AM AMBULATORY - MEDICINE [place] [facility] [place] [facility] May 15, 2024 11:30 AM AMBULATORY - PSYCHIATRY [place] [facility] [place] [facility] May 25, 2024 11:30 AM AMBULATORY - MEDICINE [place] [facility] [place] [facility] Jul 13, 2024 10:00 AM AMBULATORY - MEDICINE [place] [facility] [place] [facility] Aug 03, 2024 01:00 PM AMBULATORY - PSYCHIATRY [place] [facility] [place] [facility] Aug 24, 2024 11:00 AM AMBULATORY - MEDICINE [place] C [facility] [place] [facility] Sep 07, 2024 11:30 AM AMBULATORY - MEDICINE [facility] [place] [facility] Social History: Smoking Status (Most [...] VA-TOBACCO FORMER USER [place] [facility] [place] [facility] Tobacco Use History This section includes a history of the smoking, or tobacco-related health factors, that were collected on or before the date of the Encounter. The data comes from the [place] facility where the Encounter took place. Date/Time Smoking Status/Tobac co Use Comment Facility Mar 06, 2024 09:00 AM VA-TOBACCO QUIT 15 YRS OR MORE [place] [facility] [facility] Mar 31, 2023 11:00 AM VA-TOBACCO FORMER USER [place] [facility] [facility] Mar 31, 2023 11:00 AM VA-TOBACCO QUIT 1 TO < 5 YRS [place] [facility] [facility] Mar 25, 2022 10:30 AM VA-TOBACCO NEVER USED [place] [facility] [facility] Mar 19, 2021 02:00 PM VA-TOBACCO FORMER USER [place] [facility] [facility] Mar 19, 2021 02:00 PM VA-TOBACCO QUIT < 1 YEAR [place] [facility] [facility] Sep 20, 2018 11:24 AM VA-TOBACCO USE DECLINED TO ANSWER [place] [facility] [place] [facility] Oct 21, 2017 08:13 AM QUIT TOBACCO USE IN PAST YEAR [place] [facility] [facility] Dec 30, 2016 08:28 AM QUIT TOBACCO USE 1-7 YEARS AGO [facility] [facility] Jun 04, 2016 08:43 AM QUIT TOBACCO USE 1-7 YEARS AGO [facility] [place] [facility] May 17, 2015 08:45 AM QUIT TOBACCO USE 1-7 YEARS AGO quit 2 years ago. [place] [facility] [place] [facility] Jun 07, 2014 09:25 AM QUIT TOBACCO USE 1-7 YEARS AGO [place] [facility] [facility] November 30, 2013 08:44 AM QUIT TOBACCO USE IN PAST YEAR [facility] [facility] May 22, 2013 10:10 AM QUIT TOBACCO USE IN PAST YEAR [facility] [facility] December 01, 2012 01:54 PM QUIT TOBACCO USE IN PAST YEAR [facility] [facility] Jun 07, 2012 08:16 AM V1-PT DECLINES TOBACCO CESSATION MEDS [place] [facility] [place] [facility] Jun 07, 2012 08:16 AM V1-PT THINKING ABOUT QUIT TOBACCO USE [facility] [facility] Jan 05, 2012 09:00 AM CURRENT SMOKER intermittenly [facility] [facility] Jan 05, 2012 09:00 AM V1-PT DECLINES REF TO TOBACCO [facility]ESS [facility] [place] [facility] Jan 05, 2012 09:00 AM V1-PT DECLINES TOBACCO CESSATION MEDS [facility] [place] [facility] Jan 05, 2012 09:00 AM V1-PT THINKING ABOUT QUIT TOBACCO USE [facility] [place] [facility] Feb 17, 2011 09:52 AM V1-PT DECLINES TOBACCO CESSATION [facility] [place] [facility] Feb 17, 2011 09:52 AM V1-PT THINKING ABOUT QUIT [facility]ACCO [facility] [place] [facility] Aug 13, 2010 11:31 AM QUIT TOBACCO USE IN PAST YEAR [facility] [place] [facility] Feb 19, 2010 01:26 PM QUIT TOBACCO USE IN PAST YEAR [place] [facility] [place] [facility] Sep 13, 2009 11:04 AM QUIT TOBACCO USE IN [facility]ST [facility]AR [facility] [place] [facility] Feb 05, 2009 08:29 AM V1-PT DECLINES REF TO TOBACCO CESS [facility] Feb 05, 2009 08:29 AM V1-PT DECLINES TOBACCO CESSATION MEDS [facility] [place] [facility] Feb 05, 2009 08:29 AM V1-PT THINKING ABOUT QUIT TOBACCO USE [place] [facility] [place] [facility] Aug 22, 2008 09:04 AM QUIT TOBACCO USE IN [facility]ST YEAR [facility] [place] [facility] Mar 12, 2008 10:40 AM V1-PT DECLINES REF TO TOBACCO CESS PRGM [place] [facility] [place] [facility] Mar 12, 2008 10:40 AM V1-PT DECLINES TOBACCO CESSATION MEDS [facility] [place] [facility] Mar 12, 2008 10:40 AM V1-PT NOT INTERESTED IN QUIT TOBACCO USE [facility] [place] [facility] Mar 08, 2008 09:37 AM CURRENT SMOKER smokes one pack a day for about 10 years ago. [facility] Encounter Notes: All associated encounter [...] COMPLETED Patient Name: REID QUEZADA Patient SSN: [id number] Date and time of Appointment No show [...] to be rescheduled. Dispositioned RTC PID 10/25/2023. [place] no showed, no longer necessary. Dispositioned on 04/05/2024. Future Clinic Visits 04/13/2024 11:00 CWM/NO/VVC/MHC/SHRUTHI 05/02/2024 11:00 NHM/RESPIRATORY CLINIC 05/10/2024 10:30 CWM/NO/PAIN 1 08/24/2024 11:00 CWM/NO/PACT 4 /es/ GEORGE FLORES Signed: 04/05/2024 14:14 GEORGE FLORES [facility]
--- OUTSIDE RECORDS SUMMARY | 2024-07-25 11:37 | XMS_ITS | Encounter Summary ---
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 Address [address] [place] [id number] Care Team Providers Care Quarryman Name Role Phone ROMANA CASTILLO Primary Care [...] [facility] (MEDICAID) [facility] May 14, 2009 [id number] SAMPLE,ROCCO MOORE PATIENT [facility] MEDICAID [facility] May 14, 2009 [id number] SAMPLE,ROCCO MOORE PATIENT MEDICAID MEDICAID [facility] Jul 26, 2018 MEDICAI D [id number] SAMPLE,ROCCO MOORE PATIENT MEDICARE (WNR) MEDICARE (M) PART A November 24, 2015 PART A [id number] SAMPLE,ROCCO MOORE PATIENT MEDICARE (WNR) MEDICARE (M) PART B November 24, 2015 PART B [id number] ROCCO QUEZADA PATIENT Selected Encounter This [...] - MEDICINE [place] [facility] [place] [facility] Apr 13, 2024 11:00 AM AMBULATORY - PSYCHIATRY [place] [facility] [place] [facility] Apr 13, 2024 02:00 PM AMBULATORY - MEDICINE [place] [facility] [place] [facility] Apr 13, 2024 03:00 PM AMBULATORY - MEDICINE [place] [facility] [place] [facility] May 02, 2024 11:00 AM AMBULATORY - MEDICINE [place] [facility] [place] [facility] May 15, 2024 11:30 AM AMBULATORY - PSYCHIATRY [place] [facility] [place] [facility] May 25, 2024 11:30 AM AMBULATORY - MEDICINE [place] [facility] [place] [facility] Jul 13, 2024 10:00 AM AMBULATORY - MEDICINE [place] [facility] [place] [facility] Aug 03, 2024 01:00 PM AMBULATORY - PSYCHIATRY [place] [facility] [place] [facility] Aug 24, 2024 11:00 AM AMBULATORY - MEDICINE [place] [facility] [place] [facility] Sep 07, 2024 11:30 AM AMBULATORY - MEDICINE [place] [facility] [place] [facility] Lab Results: +/- 30 days [...] Range Comment Mar 06, 2024 09:56 AM [facility] VITAMIN D (25-OH) Specimen Type: SERUM No comment entered. Ordering Provider: Sherrie CASTILLO Report Released Date/Time: Mar 06, 2024 09:36 AM Reporting Lab: [facility] [address] [address] Performing Lab: [facility] [address] [address] VITAMIN D (25-OH) 20 ng/mL 20-50 Mar 06, 2024 09:56 AM [facility] IRON & TIBC PANEL Specimen Type: SERUM No comment entered. Ordering Provider: Sherrie CASTILLO Report Released Date/Time: Mar 06, 2024 09:36 AM Reporting Lab: [facility] [address] [address] Performing Lab: [facility] [address] [facility] [address] TIBC 364 ug/dL 204-475 IRON 36 ug/dL L 40-160 Transferrin Saturation 9.9 L 20.0-50.0 Mar 06, 2024 09:56 AM [facility] FERRITIN Specimen Type: SERUM No comment entered. Ordering Provider: Sherrie CASTILLO Report Released Date/Time: Mar 06, 2024 09:36 AM Reporting Lab: [facility] [place] [address] [address] Performing Lab: [facility] [address] [address] FERRITIN 52 ng/mL 10-200 Mar 06, 2024 09:56 AM [facility] HEMOGLOBIN A1C PANEL Specimen Type: BLOOD [...] Mar 06, 2024 09:36 AM Reporting Lab: [facility] [address] [facility] [address] Performing Lab: [address] [address] HEMOGLOBIN A1C 5.4 4.0-5.6 Mar 06, 2024 09:56 AM [facility] MICROALBUMIN CREATININE RATIO PANEL Specimen Type: URINE No comment entered. Ordering Provider: Sherrie CASTILLO Report Released Date/Time: Mar 06, 2024 09:36 AM Reporting Lab: [address] [address] Performing Lab: [address] [address] MICROALBUMIN/C REATININE RATIO 251.1 mg/g H 0-29.9 MICROALBUMIN,Q UANTITATIVE 11.2 mg/dL RR UNAVAIL CREATININE URINE 44.60 mg/dL Mar 06, 2024 09:56 AM [facility] BASIC METABOLIC PANEL (non-fasting) Specimen Type: SERUM No comment entered. Ordering Provider: Sherrie CASTILLO Report Released Date/Time: Mar 06, 2024 09:36 AM Reporting Lab: [address] [address] Performing Lab: [address] [address] UREA NITROGEN 28 mg/dL H 7-25 GLUCOSE 130 mg/dL H 65-100 SODIUM 142 mmol/L 135-145 POTASSIUM 4.8 mmol/L 3.5-5.0 CHLORIDE 97 mmol/L L 100-110 CO2 33 meq/L H 20-30 CREATININE, Serum 1.00 mg/dL 0.50-1.40 eGFR(CKD-EPI 2020) 63 mL/min >60 Mar 06, 2024 09:56 AM [facility] CBC AND DIFF (AUTO) Specimen Type: BLOOD No comment entered. Ordering Provider: Sherrie CASTILLO Report Released Date/Time: Mar 06, 2024 09:36 AM Reporting Lab: [facility] [address] [facility] [address] Performing Lab: [facility] [address] [facility] [address] WBC 12.33 10*3/uL H 4.50-11.00 RBC 3.92 [...] AM VA-TOBACCO QUIT 15 YRS OR MORE [facility] [place] [facility] Tobacco Use History This section includes a history of the smoking, or tobacco-related health factors, that were collected on or before the date of the Encounter. The data comes from the [place] facility where the Encounter took place. Date/Time Smoking Status/Tobac co Use Comment Facility Mar 06, 2024 09:00 AM VA-TOBACCO QUIT 15 YRS OR MORE [place] [facility] [facility] Mar 31, 2023 11:00 AM VA-TOBACCO FORMER USER [place] [facility] [facility] Mar 31, 2023 11:00 AM VA-TOBACCO QUIT 1 TO < 5 YRS [place] [facility] [place] [facility] Mar 25, 2022 10:30 AM VA-TOBACCO NEVER USED [place] [facility] [facility] Mar 19, 2021 02:00 PM VA-TOBACCO FORMER USER [place] [facility] [facility] Mar 19, 2021 02:00 PM VA-TOBACCO QUIT < 1 YEAR [place] [facility] [place] [facility] Sep 20, 2018 11:24 AM VA-TOBACCO USE DECLINED TO ANSWER [place] [facility] [place] [facility] Oct 21, 2017 08:13 AM QUIT TOBACCO USE IN PAST YEAR [place] [facility] [facility] Dec 30, 2016 08:28 AM QUIT TOBACCO USE 1-7 YEARS AGO [place] [facility] [place] [facility] Jun 04, 2016 08:43 AM QUIT TOBACCO USE 1-7 YEARS AGO [place] [facility] [facility] May 17, 2015 08:45 AM QUIT TOBACCO USE 1-7 YEARS AGO quit 2 years ago. [place] [facility] [place] [facility] Jun 07, 2014 09:25 AM QUIT TOBACCO USE 1-7 YEARS AGO [place] [facility] [facility] November 30, 2013 08:44 AM QUIT TOBACCO USE IN PAST YEAR [place] [facility] [place] [facility] May 22, 2013 10:10 AM QUIT TOBACCO USE IN PAST YEAR [place] [facility] [place] [facility] December 01, 2012 01:54 PM QUIT TOBACCO USE IN PAST YEAR [place] [facility] [place] [facility] Jun 07, 2012 08:16 AM V1-PT DECLINES TOBACCO CESSATION MEDS [facility] [place] [facility] Jun 07, 2012 08:16 AM V1-PT THINKING ABOUT QUIT TOBACCO USE [place] [facility] [place] [facility] Jan 05, 2012 09:00 AM CURRENT SMOKER intermittenly [place] [facility] [facility] [facility] Jan 05, 2012 09:00 AM V1-PT DECLINES REF TO TOBACCO CESS PRGM [place] [facility] [place] [facility] Jan 05, 2012 09:00 AM V1-PT DECLINES TOBACCO CESSATION MEDS [facility] [place] [facility] Jan 05, 2012 09:00 AM V1-PT THINKING ABOUT QUIT TOBACCO USE [facility] [place] [facility] Feb 17, 2011 09:52 AM V1-PT DECLINES TOBACCO CESSATION MEDS [facility] [facility] Feb 17, 2011 09:52 AM V1-PT THINKING ABOUT QUIT TOBACCO USE [facility] [facility] Aug 13, 2010 11:31 AM QUIT TOBACCO USE IN PAST YEAR [facility] [facility] Feb 19, 2010 01:26 PM QUIT TOBACCO USE IN PAST YEAR [place] [facility] [facility] Sep 13, 2009 11:04 AM QUIT TOBACCO USE IN PAST YEAR [place] [facility] [facility] Feb 05, 2009 08:29 AM V1-PT DECLINES REF TO TOBACCO CESS PRGM [facility] [facility] Feb 05, 2009 08:29 AM V1-PT DECLINES TOBACCO CESSATION MEDS [facility] [facility] Feb 05, 2009 08:29 AM V1-PT THINKING ABOUT QUIT TOBACCO USE [place] [facility] [facility] Aug 22, 2008 09:04 AM QUIT TOBACCO USE IN PAST YEAR [place] [facility] [facility] Mar 12, 2008 10:40 AM V1-PT DECLINES REF TO TOBACCO CESS PRGM [place] [facility] [facility] Mar 12, 2008 10:40 AM V1-PT DECLINES TOBACCO CESSATION MEDS [facility] [facility] Mar 12, 2008 10:40 AM V1-PT NOT INTERESTED IN QUIT TOBACCO USE [facility] Mar 08, 2008 09:37 AM CURRENT SMOKER smokes one pack a day for about 10 years ago. [facility] Encounter Notes: All associated encounter [...] discuss meds. Phone number on file confirmed. 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
--- OUTSIDE RECORDS SUMMARY | 2024-07-25 11:37 | XMS_ITS | Encounter Summary ---
Author Name [place] Address [address] [place] [address] Care Team Providers Care Appointment Manager Name Role Phone ROMANA CASTILLO Primary [...] [facility] (MEDICAID) [facility] May 14, 2009 [id number] SAMPLE,ROCCO MOORE PATIENT [facility]ID [facility] May 14, 2009 [id number] SAMPLE,ROCCO MOORE PATIENT MEDICAID MEDICAID [facility] Jul 26, 2018 MEDICAI D [id number] SAMPLE,ROCCO MOORE PATIENT MEDICARE (WNR) MEDICARE (M) PART A November 24, 2015 PART A [id number] SAMPLE,ROCCO MOORE PATIENT MEDICARE (WNR) MEDICARE (M) PART B November 24, 2015 PART B [id number] SAMPLEROCCO PATIENT Selected Encounter This section includes the information on record at [place] for the Encounter. Date/Time Encounter Type Encounter Description Reason Provider Source Mar 16, 2024 03:54 PM PRO PHONE CALL 5-10 MIN TELEPHONE PRIMARY CARE ICD-10-CM J44.9 Chronic obstructive pulmonary disease, unspecified JARMOLOWICZ,BE TSY IHE Encounter Template Text not used by [place] Assessments - Encounter Diagnoses This section includes the primary and secondary diagnoses documented for the Encounter. Date/Time Primary/Secondary Diagnosis Diagnosis Name Provider Source Mar 16, 2024 03:54 PM PRIMARY Chronic obstructive pulmonary disease, unspecified JARMOLOWICZ,BE TSY [place] [facility] [facility] Plan of Treatment: Future Appointments [...] - MEDICINE [place] [facility] Apr 13, 2024 11:00 AM AMBULATORY - PSYCHIATRY [place] [facility] [facility] Apr 13, 2024 02:00 PM AMBULATORY - MEDICINE [place] [facility] Apr 13, 2024 03:00 PM AMBULATORY - MEDICINE [place] [facility] [facility] May 02, 2024 11:00 AM AMBULATORY - MEDICINE [place] [facility] May 15, 2024 11:30 AM AMBULATORY - PSYCHIATRY [place] [facility] [place] [facility] May 25, 2024 11:30 AM AMBULATORY - MEDICINE [place] [facility] Jul 13, 2024 10:00 AM AMBULATORY - MEDICINE [place] [facility] Aug 03, 2024 01:00 PM AMBULATORY - PSYCHIATRY [place] [facility] [place] [facility] Aug 24, 2024 11:00 AM AMBULATORY - MEDICINE [place] [facility] Sep 07, 2024 11:30 AM AMBULATORY - MEDICINE [facility] Lab Results: +/- 30 days of [...] Range Comment Mar 06, 2024 09:56 AM [facility] IRON & TIBC PANEL Specimen Type: SERUM No comment entered. Ordering Provider: Sherrie CASTILLO Report Released Date/Time: Mar 06, 2024 09:36 AM Reporting Lab: [address] [address] Performing Lab: [address] [address] TIBC 364 ug/dL 204-475 IRON 36 ug/dL L 40-160 Transferrin Saturation 9.9 L 20.0-50.0 Mar 06, 2024 09:56 AM [facility] FERRITIN Specimen Type: SERUM No comment entered. Ordering Provider: Sherrie CASTILLO Report Released Date/Time: Mar 06, 2024 09:36 AM Reporting Lab: [address] [address] Performing Lab: [facility] [address] FERRITIN 52 ng/mL 10-200 Mar 06, 2024 09:56 AM [facility] VITAMIN D (25-OH) Specimen Type: SERUM No comment entered. Ordering Provider: Sherrie CASTILLO Report Released Date/Time: Mar 06, 2024 09:36 AM Reporting Lab: [facility] [address] Performing Lab: [facility] [address] VITAMIN D (25-OH) 20 ng/mL 20-50 Mar 06, 2024 09:56 AM [facility] HEMOGLOBIN A1C PANEL Specimen [...] 06, 2024 09:36 AM Reporting Lab: [address] [address] Performing Lab: [address] [address] HEMOGLOBIN A1C 5.4 4.0-5.6 Mar 06, 2024 09:56 AM [facility] MICROALBUMIN CREATININE RATIO PANEL Specimen Type: URINE No comment entered. Ordering Provider: Sherrie CASTILLO Report Released Date/Time: Mar 06, 2024 09:36 AM Reporting Lab: [address] [address] Performing Lab: [address] [address] MICROALBUMIN/C REATININE RATIO 251.1 mg/g H 0-29.9 MICROALBUMIN,Q UANTITATIVE 11.2 mg/dL RR UNAVAIL CREATININE URINE 44.60 mg/dL Mar 06, 2024 09:56 AM [facility] BASIC METABOLIC PANEL (non-fasting) Specimen Type: SERUM No comment entered. Ordering Provider: Sherrie CASTILLO Report Released Date/Time: Mar 06, 2024 09:36 AM Reporting Lab: [address] [address] Performing Lab: [address] [address] UREA NITROGEN 28 mg/dL H 7-25 GLUCOSE 130 mg/dL H 65-100 SODIUM 142 mmol/L 135-145 POTASSIUM 4.8 mmol/L 3.5-5.0 CHLORIDE 97 mmol/L L 100-110 CO2 33 meq/L H 20-30 CREATININE, Serum 1.00 mg/dL 0.50-1.40 eGFR(CKD-EPI 2020) 63 mL/min >60 Mar 06, 2024 09:56 AM [facility] CBC AND DIFF (AUTO) Specimen Type: BLOOD No comment entered. Ordering Provider: Sherrie CASTILLO Report Released Date/Time: Mar 06, 2024 09:36 AM Reporting Lab: [facility] [address] [facility] [address] Performing Lab: [facility] [address] [facility] [address] WBC 12.33 10*3/uL H 4.50-11.00 RBC 3.92 [...] 06, 2024 09:00 AM VA-TOBACCO FORMER USER [place] [facility] Tobacco Use History This section includes a history of the smoking, or tobacco-related health factors, that were collected on or before the date of the Encounter. The data comes from the [place] facility where the Encounter took place. Date/Time Smoking Status/Tobac co Use Comment [facility] Mar 06, 2024 09:00 AM VA-TOBACCO QUIT 15 YRS OR MORE [place] [facility] Mar 31, 2023 11:00 AM VA-TOBACCO FORMER USER [place] [facility] Mar 31, 2023 11:00 AM VA-TOBACCO QUIT 1 TO < 5 YRS [place] [facility] Mar 25, 2022 10:30 AM VA-TOBACCO NEVER USED [place] [facility] Mar 19, 2021 02:00 PM VA-TOBACCO FORMER USER [place] [facility] Mar 19, 2021 02:00 PM VA-TOBACCO QUIT < 1 YEAR [place] [facility] Sep 20, 2018 11:24 AM VA-TOBACCO USE DECLINED TO ANSWER [place] [facility] Oct 21, 2017 08:13 AM QUIT TOBACCO USE IN PAST YEAR [place] [facility] [place] [facility] Dec 30, 2016 08:28 AM QUIT TOBACCO USE 1-7 YEARS AGO [place] [facility] [place] [facility] Jun 04, 2016 08:43 AM QUIT TOBACCO USE 1-7 YEARS AGO [place] [facility] [place] [facility] May 17, 2015 08:45 AM QUIT TOBACCO USE 1-7 YEARS AGO quit 2 years ago. [place] [facility] [facility] Jun 07, 2014 09:25 AM QUIT TOBACCO USE 1-7 YEARS AGO [place] [facility] November 30, 2013 08:44 AM QUIT TOBACCO USE IN PAST YEAR [place] [facility] [facility] May 22, 2013 10:10 AM QUIT TOBACCO USE IN PAST YEAR [place] [facility] December 01, 2012 01:54 PM QUIT TOBACCO USE IN PAST YEAR [place] [facility] Jun 07, 2012 08:16 AM V1-PT DECLINES TOBACCO CESSATION MEDS [place] [facility] Jun 07, 2012 08:16 AM V1-PT THINKING ABOUT QUIT TOBACCO USE [place] [facility] Jan 05, 2012 09:00 AM CURRENT SMOKER intermittenly [facility] [place] [facility] Jan 05, 2012 09:00 AM V1-PT DECLINES REF TO TOBACCO CESS PRGM [facility] [place] [facility] Jan 05, 2012 09:00 AM V1-PT DECLINES TOBACCO CESSATION MEDS [place] [facility] Jan 05, 2012 09:00 AM V1-PT THINKING ABOUT QUIT TOBACCO USE [facility] [place] [facility] Feb 17, 2011 09:52 AM V1-PT DECLINES TOBACCO CESSATION MEDS [facility] [place] [facility] Feb 17, 2011 09:52 AM V1-PT THINKING ABOUT QUIT TOBACCO USE [facility] [place] [facility] Aug 13, 2010 11:31 AM QUIT TOBACCO USE IN PAST YEAR [facility] [place] [facility] Feb 19, 2010 01:26 PM QUIT TOBACCO USE IN PAST YEAR [facility] [place] [facility] Sep 13, 2009 11:04 AM QUIT TOBACCO USE IN PAST YEAR [facility] [place] [facility] Feb 05, 2009 08:29 AM V1-PT DECLINES REF TO TOBACCO CESS PRGM [place] [facility] Feb 05, 2009 08:29 AM V1-PT DECLINES TOBACCO CESSATION MEDS [facility] [place] [facility] Feb 05, 2009 08:29 AM V1-PT THINKING ABOUT QUIT TOBACCO [facility] Aug 22, 2008 09:04 AM QUIT TOBACCO USE IN PAST YEAR [facility] Mar 12, 2008 10:40 AM V1-PT DECLINES REF TO TOBACCO CESS PRGM [facility] Mar 12, 2008 10:40 AM V1-PT DECLINES TOBACCO CESSATION MEDS [facility] Mar 12, 2008 10:40 AM V1-PT NOT INTERESTED IN QUIT TOBACCO USE [facility] Mar 08, 2008 09:37 AM CURRENT SMOKER smokes one pack a day for about 10 years ago. [facility] Encounter Notes: All associated [...] spent with Patient via telephone: 10 minutes. called to request travel oxygen be arranged for a 3-day trip to [place] next month. She will be staying at [address] would like oxygen delivered for her stay. A consult was placed for a small liquid oxygen reservoir and a stationary concentrator to be delivered to the [facility]. states she is using the oxygen on different settings than ordered and she would like to come in for a new oxygen evaluation. She is also using at night with her BIPAP, but at 6L, not 4L. [place] agrees to come into [place] clinic [place] new eval and an RTC will be placed. She also agrees to do an overnight oximetry (SOM) to check her nocturnal oxygen levels, and it will be ordered with her oxygen renewal. /divya/ ROSALVA HARMON BA, ICE DELIVERY DRIVER, RPFT RESPIRATORY THERAPIST Signed: 03/16/2024 16:12 Receipt Acknowledged By: 03/21/2024 09:18 /divya/ ROSALVA OLIVEIRA [facility]
--- OUTSIDE RECORDS SUMMARY | 2024-07-25 11:37 | XMS_ITS | Encounter Summary ---
Author Name [facility] [place] Organization [facility] [place] Address [address] [place] [id number] Care Team Providers Care Manager Organizational Name Role Phone ROMANA CASTILLO Primary Care [...] Name Patient's Relationship to Policy Garcia [facility] (MEDICAID) [facility]ID [facility] May 14, 2009 [id number] SAMPLE,ROCCO MOORE PATIENT [facility] MEDICAID [facility] HUMAN [facility] May 14, 2009 [id number] SAMPLE,ROCCO MOORE PATIENT MEDICAID MEDICAID [facility] Jul 26, 2018 MEDICAI D [id number] SAMPLE,ROCCO MOORE PATIENT MEDICARE (WNR) MEDICARE (M) PART A November 24, 2015 PART A [id number] SAMPLE,ROCCO MOORE PATIENT MEDICARE (WNR) MEDICARE (M) PART B November 24, 2015 PART B [id number] [phone] [id number] ROCCO QUEZADA PATIENT Selected Encounter This [...] AMBULATORY - PSYCHIATRY [place] [facility] [facility] Mar 06, 2024 09:00 AM AMBULATORY - MEDICINE PR C NTRL [place] [facility] Apr 03, 2024 11:30 AM AMBULATORY - MEDICINE PR C NTRL [place] [facility] Apr 13, 2024 11:00 AM AMBULATORY - PSYCHIATRY PR [facility] [place] [facility] Apr 13, 2024 02:00 PM AMBULATORY - MEDICINE PR C NTRL [place] [facility] Apr 13, 2024 03:00 PM AMBULATORY - MEDICINE PR C NTRL [place] [facility] May 02, 2024 11:00 AM AMBULATORY - MEDICINE PR C NTRL [place] [facility] May 15, 2024 11:30 AM AMBULATORY - PSYCHIATRY PR [facility] [place] [facility] May 25, 2024 11:30 AM AMBULATORY - MEDICINE PR C NTRL [place] [facility] Jul 13, 2024 10:00 AM AMBULATORY - MEDICINE PR C NTRL [place] [facility] Aug 03, 2024 01:00 PM AMBULATORY - PSYCHIATRY PR [facility] [place] [facility] Active, Pending, and Scheduled Orders This section includes a listing of several types of active, pending, and scheduled orders, including clinic medications orders, diagnostic test orders, procedure orders and consult orders; where the start date of the order is 45 days before the date of the Encounter or 45 days after the date of theEncounter. The data comes from all [place] treatment facilities. Test Date/Time Test Type Test Details Facility Name Jan 17, 2024 12:00 AM Laboratory - Chemistry Order BASIC METABOLIC PANEL (non-fasting) BLOOD (SST-SERUM) [facility] Jan 17, 2024 12:00 AM Laboratory - Chemistry Order LIPID PANEL, NON FASTING BLOOD (SST-SERUM) [facility] Jan 17, 2024 12:00 AM Laboratory - Chemistry Order LIVER FUNCTION BLOOD (SST-SERUM) [facility] Jan 17, 2024 12:00 AM Laboratory - Chemistry Order TSH BLOOD (SST-SERUM) [facility] Jan 17, 2024 12:00 AM Laboratory - Chemistry Order MICROALBUMIN CREATININE RATIO PANEL URINE (RANDOM) [facility] Lab Results: +/- 30 days of the encounter This section includes the Chemistry and Hematology Lab Results on record with [place] for the patient. Radiology Reports and Pathology Reports are provided separately, in subsequent sections. Lab Results This section contains the Chemistry/Hematology Results that were resulted 30 days before or 30 daysafter the date of the Encounter. Date/Time Source Result Type Result - Unit Interpretation Reference Range Comment Mar 06, 2024 09:56 AM [facility] IRON & TIBC PANEL Specimen Type: SERUM No comment entered. Ordering Provider: Sherrie CASTILLO Report Released Date/Time: Mar 06, 2024 09:36 AM Reporting Lab: [address] [address] Performing Lab: [address] [address] TIBC 364 ug/dL 204-475 IRON 36 ug/dL L 40-160 Transferrin Saturation 9.9 L 20.0-50.0 Mar 06, 2024 09:56 AM [facility] FERRITIN Specimen Type: SERUM No comment entered. Ordering Provider: Sherrie CASTILLO Report Released Date/Time: Mar 06, 2024 09:36 AM Reporting Lab: [address] [place] [address] Performing Lab: [place] [facility] [place] [facility] [address] [facility] [address] FERRITIN 52 ng/mL 10-200 Mar 06, 2024 09:56 AM [facility] VITAMIN D (25-OH) Specimen Type: SERUM No comment entered. Ordering Provider: Sherrie CASTILLO Report Released Date/Time: Mar 06, 2024 09:36 AM Reporting Lab: [facility] [facility] [address] [facility] [address] Performing Lab: [facility] [address] [address] VITAMIN D (25-OH) 20 ng/mL 20-50 Mar 06, 2024 09:56 AM [facility] HEMOGLOBIN A1C PANEL Specimen Type: BLOOD [...] 06, 2024 09:36 AM Reporting Lab: [facility] [address] [facility] [address] Performing Lab: [facility]STR[facility] [address] [address] HEMOGLOBIN A1C 5.4 4.0-5.6 Mar 06, 2024 09:56 AM [facility] MICROALBUMIN CREATININE RATIO PANEL Specimen Type: URINE No comment entered. Ordering Provider: Sherrie CASTILLO Report Released Date/Time: Mar 06, 2024 09:36 AM Reporting Lab: [facility] [place] [facility] [address] [facility] [address] Performing Lab: [facility] [address] [address] MICROALBUMIN/C REATININE RATIO 251.1 mg/g H 0-29.9 MICROALBUMIN,Q UANTITATIVE 11.2 mg/dL RR UNAVAIL CREATININE URINE 44.60 mg/dL Mar 06, 2024 09:56 AM [facility] BASIC METABOLIC PANEL (non-fasting) Specimen Type: SERUM No comment entered. Ordering Provider: Sherrie CASTILLO Report Released Date/Time: Mar 06, 2024 09:36 AM Reporting Lab: [facility] [address] [facility] [address] Performing Lab: [address] [address] UREA NITROGEN 28 mg/dL H 7-25 GLUCOSE 130 mg/dL H 65-100 SODIUM 142 mmol/L 135-145 POTASSIUM 4.8 mmol/L 3.5-5.0 CHLORIDE 97 mmol/L L 100-110 CO2 33 meq/L H 20-30 CREATININE, Serum 1.00 mg/dL 0.50-1.40 eGFR(CKD-EPI 2020) 63 mL/min >60 Mar 06, 2024 09:56 AM [facility] CBC AND DIFF (AUTO) Specimen Type: BLOOD No comment entered. Ordering Provider: Sherrie CASTILLO Report Released Date/Time: Mar 06, 2024 09:36 AM Reporting Lab: [facility] [address] [facility] [address] Performing Lab: [address] [address] WBC 12.33 10*3/uL H 4.50-11.00 RBC 3.92 [...] took place. Date/Time Current Smoking Status Comment [facility] Mar 31, 2023 11:00 AM VA-TOBACCO FORMER USER PR CNTR [facility] Tobacco Use History This section includes a history of the smoking, or tobacco-related health factors, that were collected on or before the date of the Encounter. The data comes from the [place] facility where the Encounter took place. Date/Time Smoking Status/Tobac co Use Comment Facility Mar 31, 2023 11:00 AM VA-TOBACCO QUIT 1 TO < 5 YRS [place] [facility]L [place] [facility] Mar 25, 2022 10:30 AM VA-TOBACCO NEVER USED PR CNTRL [place] [facility] Mar 19, 2021 02:00 PM VA-TOBACCO FORMER USER PR [facility]L [facility] [facility] Mar 19, 2021 02:00 PM VA-TOBACCO QUIT < 1 YEAR PR [facility] [place] [facility] Sep 20, 2018 11:24 AM VA-TOBACCO USE DECLINED TO ANSWER PR [facility]L [place] [facility] Oct 21, 2017 08:13 AM QUIT TOBACCO USE IN PAST YEAR PR CNTR [facility] [facility] Dec 30, 2016 08:28 AM QUIT TOBACCO USE 1-7 YEARS AGO PR [facility]TR [place] [facility] Jun 04, 2016 08:43 AM QUIT TOBACCO USE 1-7 YEARS AGO PR [facility]TR [place] [facility] May 17, 2015 08:45 AM QUIT TOBACCO USE 1-7 YEARS AGO quit 2 years ago. [place] [facility]TR [facility] [facility] Jun 07, 2014 09:25 AM QUIT TOBACCO USE 1-7 YEARS AGO PR [facility]TR [facility] [facility] November 30, 2013 08:44 AM QUIT TOBACCO USE IN PAST YEAR PR [facility]TR [facility] [facility] May 22, 2013 10:10 AM QUIT TOBACCO USE IN PAST YEAR [facility] [place] [facility] December 01, 2012 01:54 PM QUIT TOBACCO USE IN PAST YEAR [facility] [place] [facility] Jun 07, 2012 08:16 AM V1-PT DECLINES TOBACCO CESSATION MEDS [facility] [place] [facility] Jun 07, 2012 08:16 AM V1-PT THINKING ABOUT QUIT TOBACCO USE [facility] [place] [facility] Jan 05, 2012 09:00 AM CURRENT SMOKER intermittenly [facility] [place] [facility] Jan 05, 2012 09:00 AM V1-PT DECLINES REF TO TOBACCO CESS PRGM [facility] [place] [facility] Jan 05, 2012 09:00 AM V1-PT DECLINES TOBACCO CESSATION MEDS [facility] [place] [facility] Jan 05, 2012 09:00 AM V1-PT THINKING ABOUT QUIT TOBACCO USE [facility] [place] [facility] Feb 17, 2011 09:52 AM V1-PT DECLINES TOBACCO CESSATION MEDS PR CNTR [place] [facility] Feb 17, 2011 09:52 AM V1-PT THINKING ABOUT QUIT TOBACCO USE PR CNTR [place] [facility] Aug 13, 2010 11:31 AM QUIT TOBACCO USE IN PAST YEAR [facility] [place] [facility] Feb 19, 2010 01:26 PM QUIT TOBACCO USE IN PAST YEAR [facility] Sep 13, 2009 11:04 AM QUIT TOBACCO USE IN PAST YEAR [facility] Feb 05, 2009 08:29 AM V1-PT DECLINES REF TO TOBACCO CESS PRGM [facility] Feb 05, 2009 08:29 AM V1-PT DECLINES TOBACCO CESSATION MEDS [facility] Feb 05, 2009 08:29 AM V1-PT THINKING ABOUT QUIT TOBACCO USE [facility] Aug 22, 2008 09:04 AM QUIT TOBACCO USE IN PAST YEAR [facility] Mar 12, 2008 10:40 AM V1-PT DECLINES REF TO TOBACCO CESS PRGM [facility] Mar 12, 2008 10:40 AM V1-PT DECLINES TOBACCO CESSATION MEDS [facility] Mar 12, 2008 10:40 AM V1-PT NOT INTERESTED IN QUIT TOBACCO USE [facility] Mar 08, 2008 09:37 AM CURRENT SMOKER smokes one pack a day for about 10 years ago. [facility] Encounter Notes: All associated encounter notes This section contains the clinical notes associated to the Encounter. Date/Time Encounter Note(s) Provider Source Feb 12, 2024 12:00 AM NONVA NOTE: LOCAL TITLE: NON-[facility] STANDARD TITLE: NONVA NOTE DATE OF NOTE: FEB 12, 2024 ENTRY DATE: MAR 23, 2024@12:48:48 AUTHOR: NIKOLAS DALY COSIGNER: URGENCY: STATUS: COMPLETED VistA Imaging - Scanned Document SCANNED DOCUMENT SIGNATURE NOT REQUIRED Electronically Filed: 03/23/2024 by: MERCEDES DALY Lawnmower Repair Mechanic MERCEDES DALY [facility]
--- OUTSIDE RECORDS SUMMARY | 2024-07-25 11:37 | XMS_ITS | Encounter Summary ---
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 Organization [place] Address [address] [place] [phone] Care Team Providers Care Compliance Review Officer Name Role Phone ROMANA CASTILLO Primary Care [...] Garcia [facility] (MEDICAID) MEDICAID [facility] HUMAN [facility] May 14, 2009 [id number] SAMPLE,ROCCO MOORE PATIENT [facility] MEDICAID [facility] May 14, 2009 [id number] SAMPLE,ROCCO MOORE PATIENT MEDICAID MEDICAID [facility] [place] Jul 26, 2018 MEDICAI D [id number] SAMPLE,ROCCO MOORE PATIENT MEDICARE (WNR) MEDICARE (M) PART A November 24, 2015 PART A [id number] SAMPLE,ROCCO MOORE PATIENT MEDICARE (WNR) MEDICARE (M) PART B November 24, 2015 PART B [id number] SAMPLE,ROCCO MOORE PATIENT Selected Encounter This section includes the information on record at [facility] for the Encounter. Date/Time Encounter Type Encounter Description Reason Pro vider Source IHE Encounter Template Text not used by VA
--- OUTSIDE RECORDS SUMMARY | 2024-07-25 11:37 | XMS_ITS | Encounter Summary ---
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 Organization [place] Address [address] [place] [phone] Care Team Providers Care Mechanical Engineering Advisor Name Role Phone ROMANA CASTILLO Primary [...] to Policy Garcia [facility] (MEDICAID) [facility]ID [facility] May 14, 2009 [id number] SAMPLE,ROCCO MOORE PATIENT [facility] MEDICAID [facility] May 14, 2009 [id number] SAMPLE,ROCCO MOORE PATIENT MEDICAID MEDICAID [facility] [place] Jul 26, 2018 MEDICAI D [id number] SAMPLE,ROCCO MOORE PATIENT MEDICARE (WNR) MEDICARE (M) PART A November 24, 2015 PART A [id number] [phone] [id number] SAMPLE,ROCCO MOORE PATIENT MEDICARE (WNR) MEDICARE (M) PART B November 24, 2015 PART B [id number] ROCCO QUEZADA PATIENT Selected Encounter This [...] - MEDICINE [place] C [facility] [place] [facility] Apr 13, 2024 11:00 AM AMBULATORY - PSYCHIATRY SC [facility] [place] [facility] Apr 13, 2024 02:00 PM AMBULATORY - MEDICINE SC C NTRL [place] [facility] Apr 13, 2024 03:00 PM AMBULATORY - MEDICINE SC C NTRL [place] [facility] May 02, 2024 11:00 AM AMBULATORY - MEDICINE SC C [facility]TRL [place] [facility] May 15, 2024 11:30 AM AMBULATORY - PSYCHIATRY SC [facility]L [place] [facility] May 25, 2024 11:30 AM AMBULATORY - MEDICINE SC C NTRL [place] [facility] Jul 13, 2024 10:00 AM AMBULATORY - MEDICINE SC C NTRL [place] [facility] Aug 03, 2024 01:00 PM AMBULATORY - PSYCHIATRY [facility] [place] [facility] Aug 24, 2024 11:00 AM AMBULATORY - MEDICINE [place] C NTRL [place] [facility] Sep 07, 2024 11:30 AM AMBULATORY - MEDICINE [place] C NTRL [place] [facility] Lab Results: +/- 30 days [...] Range Comment Mar 06, 2024 09:56 AM [facility] IRON & TIBC PANEL Specimen Type: SERUM No comment entered. Ordering Provider: Sherrie CASTILLO Report Released Date/Time: Mar 06, 2024 09:36 AM Reporting Lab: [facility] [address] [address] Performing Lab: [facility] [address] [address] TIBC 364 ug/dL 204-475 IRON 36 ug/dL L 40-160 Transferrin Saturation 9.9 L 20.0-50.0 Mar 06, 2024 09:56 AM [facility] VITAMIN D (25-OH) Specimen Type: SERUM No comment entered. Ordering Provider: Sherrie CASTILLO Report Released Date/Time: Mar 06, 2024 09:36 AM Reporting Lab: [facility] [place] [facility] [address] [address] Performing Lab: [facility]ITAL[facility]ERN [facility] [address] [address] VITAMIN D (25-OH) 20 ng/mL 20-50 Mar 06, 2024 09:56 AM [facility] FERRITIN Specimen Type: SERUM No comment entered. Ordering Provider: Sherrie CASTILLO Report Released Date/Time: Mar 06, 2024 09:36 AM Reporting Lab: [facility] [place] [facility] [address] [address] Performing Lab: [facility]ITALRST[facility] VINCENT'[facility] CH[facility]TONTRN [facility]ITAL[facility] [address] [address] FERRITIN 52 ng/mL 10-200 Mar 06, 2024 09:56 AM [facility]USE[facility] HEMOGLOBIN A1C PANEL Specimen Type: BLOOD [...] Lab: [facility] [address] [address] Performing Lab: [address] [address] HEMOGLOBIN A1C 5.4 4.0-5.6 Mar 06, 2024 09:56 AM [facility] MICROALBUMIN CREATININE RATIO PANEL Specimen Type: URINE No comment entered. Ordering Provider: Sherrie CASTILLO Report Released Date/Time: Mar 06, 2024 09:36 AM Reporting Lab: [address] [address] Performing Lab: [address] [address] MICROALBUMIN/C REATININE RATIO 251.1 mg/g H 0-29.9 MICROALBUMIN,Q UANTITATIVE 11.2 mg/dL RR UNAVAIL CREATININE URINE 44.60 mg/dL Mar 06, 2024 09:56 AM [facility] BASIC METABOLIC PANEL (non-fasting) Specimen Type: SERUM No comment entered. Ordering Provider: Sherrie CASTILLO Report Released Date/Time: Mar 06, 2024 09:36 AM Reporting Lab: [address] [address] Performing Lab: [address] [address] UREA NITROGEN 28 mg/dL H 7-25 GLUCOSE [...] Lab: [facility] [address] [address] Performing Lab: [facility] [address] [address] WBC 12.33 10*3/uL H 4.50-11.00 RBC 3.92 [...] 2024 09:00 AM VA-TOBACCO FORMER USER [place] [facility]TR [place] [facility] Tobacco Use History This section includes a history of the smoking, or tobacco-related health factors, that were collected on or before the date of the Encounter. The data comes from the [place] facility where the Encounter took place. Date/Time Smoking Status/Tobac co Use Comment Facility Mar 06, 2024 09:00 AM VA-TOBACCO QUIT 15 YRS OR MORE [place] [facility]TRL [place] [facility] Mar 31, 2023 11:00 AM VA-TOBACCO FORMER USER [place] CN[facility]L [place] [facility] Mar 31, 2023 11:00 AM VA-TOBACCO QUIT 1 TO < 5 YRS [place] [facility]L [place] [facility] Mar 25, 2022 10:30 AM VA-TOBACCO NEVER USED [place] CNTR [place] [facility] Mar 19, 2021 02:00 PM VA-TOBACCO FORMER USER [place] [facility]L [place] [facility] Mar 19, 2021 02:00 PM VA-TOBACCO QUIT < 1 YEAR SC [facility]TR [facility] [facility] Sep 20, 2018 11:24 AM VA-TOBACCO USE DECLINED TO ANSWER [place] [facility]L [place] [facility] Oct 21, 2017 08:13 AM QUIT TOBACCO USE IN PAST YEAR SC [facility]L [place] [facility] Dec 30, 2016 08:28 AM QUIT TOBACCO USE 1-7 YEARS AGO SC [facility] [place] [facility] Jun 04, 2016 08:43 AM QUIT TOBACCO USE 1-7 YEARS AGO SC [facility] [place] [facility] May 17, 2015 08:45 AM QUIT TOBACCO USE 1-7 YEARS AGO quit 2 years ago. [place] [facility] [place] [facility] Jun 07, 2014 09:25 AM QUIT TOBACCO USE 1-7 YEARS AGO [facility] [place] [facility] November 30, 2013 08:44 AM QUIT TOBACCO USE IN PAST YEAR [place] [facility]TR [place] [facility] May 22, 2013 10:10 AM QUIT TOBACCO USE IN PAST YEAR [place] [facility]L [place] [facility] December 01, 2012 01:54 PM QUIT TOBACCO USE IN PAST YEAR [facility] [place] [facility] Jun 07, 2012 08:16 AM V1-PT DECLINES TOBACCO CESSATION MEDS [facility] [place] [facility] Jun 07, 2012 08:16 AM V1-PT THINKING ABOUT QUIT TOBACCO USE [facility] [facility] Jan 05, 2012 09:00 AM CURRENT SMOKER intermittenly [place] CNTR [facility] [facility] Jan 05, 2012 09:00 AM V1-PT DECLINES REF TO TOBACCO CESS PRGM [facility] [place] [facility] Jan 05, 2012 09:00 AM V1-PT DECLINES TOBACCO CESSATION MEDS [facility] [place] [facility] Jan 05, 2012 09:00 AM V1-PT THINKING ABOUT QUIT TOBACCO USE [facility] [place] [facility] Feb 17, 2011 09:52 AM V1-PT DECLINES TOBACCO CESSATION MEDS [facility] [place] [facility] Feb 17, 2011 09:52 AM V1-PT THINKING ABOUT QUIT TOBACCO USE [facility] [place] [facility] Aug 13, 2010 11:31 AM QUIT TOBACCO USE IN PAST YEAR [place] [facility]TR [place] [facility] Feb 19, 2010 01:26 PM QUIT TOBACCO USE IN PAST YEAR [place] [facility]TR [place] [facility] Sep 13, 2009 11:04 AM QUIT TOBACCO USE IN PAST YEAR [facility] [place] [facility] Feb 05, 2009 08:29 AM V1-PT DECLINES REF TO TOBACCO CESS PRGM [facility] [place] [facility] Feb 05, 2009 08:29 AM V1-PT DECLINES TOBACCO CESSATION MEDS [facility] [place] [facility] Feb 05, 2009 08:29 AM V1-PT THINKING ABOUT QUIT TOBACCO USE [place] [facility]TR [place] [facility] Aug 22, 2008 09:04 AM QUIT TOBACCO USE IN PAST YEAR [facility]L [place] [facility] Mar 12, 2008 10:40 AM V1-PT DECLINES REF TO TOBACCO CESS PRGM [facility] [place] [facility] Mar 12, 2008 10:40 AM V1-PT DECLINES TOBACCO CESSATION MEDS [facility] [place] [facility] Mar 12, 2008 10:40 AM [...] on file confirmed. /divya/ LORI QUEVEDO [employer]ER WORKER Signed: 03/30/2024 11:06 Receipt Acknowledged By: 03/30/2024 12:01 /divya/ JESSIKA CORONEL MD PHYSICIAN 03/30/2024 11:13 /divya/ URBANO FOSTER, PHARM.D CLINICAL PHARMACIST PRACTITIONER LORI QUEVEDO [facility]
--- OUTSIDE RECORDS SUMMARY | 2024-07-25 11:38 | XMS_ITS ---
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 Address [address] [place] [id number] Care Team Providers Care Maintenance Chief Name Role Phone ROMANA CASTILLO Primary Care [...] [facility]ID) [facility] May 14, 2009 [id number] SAMPLE,ROCCO MOORE PATIENT [facility] MEDICAID [facility] May 14, 2009 [id number] SAMPLE,ROCCO MOORE PATIENT MEDICAID MEDICAID [facility] Jul 26, 2018 MEDICAI D [id number] SAMPLE,ROCCO MOORE PATIENT MEDICARE (WNR) MEDICARE (M) PART A November 24, 2015 PART A [id number] SAMPLE,ROCCO MOORE PATIENT MEDICARE (WNR) MEDICARE (M) PART B November 24, 2015 PART B [id number] ROCCO QUEZADA PATIENT Selected Encounter This section includes the information on record at [place] for the Encounter. Date/Time Encounter Type Encounter Description Reason Pro vider Source Apr 13, 2024 11:00 AM Outpatient Encounter [facility] Encounter Template Text not used by [place] [...] 02, 2024 11:00 AM AMBULATORY - MEDICINE [facility] [place] [facility] May 15, 2024 11:30 AM AMBULATORY [place]CH[place]ATRY [place] [facility] May 25, 2024 11:30 AM AMBULATORY - MEDICINE [facility] [place] [facility] Jul 13, 2024 10:00 AM AMBULATORY - MEDICINE [facility] [place] [facility] Aug 03, 2024 01:00 PM AMBULATORY PS[place]CHIATRY [place] [facility] Aug 24, 2024 11:00 AM AMBULATORY - MEDICINE [facility] [place] [facility] Sep 07, 2024 11:30 AM AMBULATORY MEDICINE [facility] [place] [facility] Vital Signs: All taken on the encounter date This section contains inpatient and outpatient Vital Signs collected on the date of the Encounter. Date/Time Temperature Pulse Blood Pressure Respiratory Rate SP02 Pain Height Weight Body Mass Index Source Apr 13, 2024 02:12 PM 97 63 118/66 19 95 [place] [facility] Social History: Smoking Status (Most [...] 06, 2024 09:00 AM VA-TOBACCO FORMER USER [facility] Tobacco Use History This section includes a history of the smoking, or tobacco-related health factors, that were collected on or before the date of the Encounter. The data comes from the [place] facility where the Encounter took place. Date/Time Smoking Status/Tobac co Use Comment Facility Mar 06, 2024 09:00 AM VA-TOBACCO QUIT 15 YRS OR MORE [place] [facility] Mar 31, 2023 11:00 AM VA-TOBACCO FORMER USER [place] [facility] Mar 31, 2023 11:00 AM VA-TOBACCO QUIT 1 TO < 5 YRS [place] [facility] Mar 25, 2022 10:30 AM VA-TOBACCO NEVER USED [place] [facility] Mar 19, 2021 02:00 PM VA-TOBACCO FORMER USER [place] [facility] Mar 19, 2021 02:00 PM VA-TOBACCO QUIT < 1 YEAR [place] [facility] Sep 20, 2018 11:24 AM [facility] [place] [facility] Oct 21, 2017 08:13 AM QUIT TOBACCO USE IN PAST YEAR [place] [facility] [facility] Dec 30, 2016 08:28 AM QUIT TOBACCO USE 1-7 YEARS AGO [place] [facility] Jun 04, 2016 08:43 AM QUIT TOBACCO USE 1-7 YEARS AGO [place] [facility] May 17, 2015 08:45 AM QUIT TOBACCO USE 1-7 YEARS AGO quit 2 years ago. [place] [facility] Jun 07, 2014 09:25 AM QUIT TOBACCO USE 1-7 YEARS AGO [place] [facility] [place] [facility] November 30, 2013 08:44 AM QUIT TOBACCO USE IN PAST YEAR [place] [place] [facility] May 22, 2013 10:10 AM QUIT TOBACCO USE IN PAST YEAR [place] [facility] [place] [facility] December 01, 2012 01:54 PM QUIT TOBACCO USE IN PAST YEAR [place] [facility] [place] [facility] Jun 07, 2012 08:16 AM V1-PT DECLINES TOBACCO CESSATION MEDS [facility] [place] [facility] Jun 07, 2012 08:16 AM V1-PT THINKING ABOUT QUIT TOBACCO USE [facility] [place] [facility] Jan 05, 2012 09:00 AM CURRENT SMOKER intermittenly [place] [place] [facility] Jan 05, 2012 09:00 AM V1-PT DECLINES REF TO TOBACCO CESS PRGM [place] [place] [facility] Jan 05, 2012 09:00 AM V1-PT DECLINES TOBACCO CESSATION MEDS [facility] [place] [facility] Jan 05, 2012 09:00 AM V1-PT THINKING ABOUT QUIT TOBACCO USE [place] [facility] [place] [facility] Feb 17, 2011 09:52 AM V1-PT DECLINES TOBACCO CESSATION MEDS [place] [facility] Feb 17, 2011 09:52 AM V1-PT THINKING ABOUT QUIT [facility] [place] [facility] Aug 13, 2010 11:31 AM QUIT TOBACCO USE IN PAST YEAR [place] [facility] Feb 19, 2010 01:26 PM QUIT TOBACCO USE IN PAST YEAR [place] [facility] [place] [facility] Sep 13, 2009 11:04 AM QUIT TOBACCO [facility]ST [facility] [place] [facility] Feb 05, 2009 08:29 AM V1-PT DECLINES REF TO TOBACCO CESS [facility] [place] [place] [facility] Feb 05, 2009 08:29 AM V1-PT DECLINES TOBACCO [facility]ESSATION [facility] [place] [place] [facility] Feb 05, 2009 08:29 AM V1-PT THINKING ABOUT QUIT TOBACCO USE [place] [facility] [place] [facility] Aug 22, 2008 09:04 AM QUIT TOBACCO USE IN PAST YEAR [place] [place] [facility] Mar 12, 2008 10:40 AM V1-PT DECLINES REF TO TOBACCO CESS PRGM [place] [facility] [place] [facility] Mar 12, 2008 10:40 AM V1-PT DECLINES TOBACCO CESSATION MEDS [facility] [place] [facility] Mar 12, 2008 10:40 AM V1-PT NOT INTERESTED IN QUIT TOBACCO USE [place] [facility] [place] [facility] Mar 08, 2008 09:37 AM CURRENT SMOKER smokes one pack a day for about 10 years ago. [facility] Encounter Notes: All associated encounter notes [...] information was shared with the PDMP [place]. No prescription(s) for controlled substances outside the [facility] were found in the last 90 days. /divya/ MATEO SCOTT JR, MD STAFF PSYCHIATRIST Signed: 04/13/2024 13:04 MATEO SCOTT MD [facility]
--- OUTSIDE RECORDS SUMMARY | 2024-07-25 11:38 | XMS_ITS ---
Author Name [facility] [place] Address [address] [place] [address] Care Team Providers Care Stone Gluer Name Role Phone ROMANA CASTILLO Primary Care [...] Garcia [facility] (MEDICAID) MEDICAID [place] [facility] May 14, 2009 [id number] SAMPLE,ROCCO MOORE PATIENT [facility] May 14, 2009 [id number] SAMPLE,ROCCO MOORE PATIENT MEDICAID MEDICAID [facility] [place] Jul 26, 2018 MEDICAI D [id number] SAMPLE,ROCCO MOORE PATIENT MEDICARE (WNR) MEDICARE (M) PART A November 24, 2015 PART A [id number] SAMPLE,ROCCO MOORE PATIENT MEDICARE (WNR) MEDICARE (M) PART B November 24, 2015 PART B [id number] SAMPLE,ROCCO MOORE PATIENT Selected Encounter This [...] 13, 2024 11:00 AM AMBULATORY - PSYCHIATRY [place] [facility] Apr 13, 2024 02:00 PM AMBULATORY - MEDICINE [place] [facility] Apr 13, 2024 03:00 PM AMBULATORY - MEDICINE [place] C [place] [facility] May 02, 2024 11:00 AM AMBULATORY - MEDICINE [place] C [place] [facility] May 15, 2024 11:30 AM AMBULATORY - PSYCHIATRY [place] [facility] May 25, 2024 11:30 AM AMBULATORY - MEDICINE [place] C [place] [facility] Jul 13, 2024 10:00 AM AMBULATORY - MEDICINE [place] C [place] [facility] Aug 03, 2024 01:00 PM AMBULATORY - PSYCHIATRY [place] [facility] Aug 24, 2024 11:00 AM AMBULATORY - MEDICINE [place] [facility] Sep 07, 2024 11:30 AM AMBULATORY - MEDICINE [facility] [place] [place] [facility] Social History: Smoking Status (Most current) [...] AM VA-TOBACCO QUIT 15 YRS OR MORE [facility] Tobacco Use History This section includes a history of the smoking, or tobacco-related health factors, that were collected on or before the date of the Encounter. The data comes from the [place] facility where the Encounter took place. Date/Time Smoking Status/Tobac co Use Comment Facility Mar 06, 2024 09:00 AM VA-TOBACCO QUIT 15 YRS OR MORE [place] [facility] Mar 31, 2023 11:00 AM VA-TOBACCO FORMER USER [place] [facility] Mar 31, 2023 11:00 AM VA-TOBACCO QUIT 1 TO < 5 YRS [place] [facility] Mar 25, 2022 10:30 AM VA-TOBACCO NEVER USED [place] [facility] Mar 19, 2021 02:00 PM VA-TOBACCO FORMER USER [place] [facility] Mar 19, 2021 02:00 PM VA-TOBACCO QUIT < 1 YEAR [place] [facility] Sep 20, 2018 11:24 AM VA-TOBACCO USE DECLINED TO ANSWER [place] [facility] Oct 21, 2017 08:13 AM QUIT TOBACCO USE IN PAST YEAR [place] [facility] Dec 30, 2016 08:28 AM QUIT TOBACCO USE 1-7 YEARS AGO [place] [facility] Jun 04, 2016 08:43 AM QUIT TOBACCO USE 1-7 YEARS AGO [place] [facility] May 17, 2015 08:45 AM QUIT TOBACCO USE 1-7 YEARS AGO quit 2 years ago. [place] [facility] Jun 07, 2014 09:25 AM QUIT TOBACCO USE 1-7 YEARS AGO [place] [facility] November 30, 2013 08:44 AM QUIT TOBACCO USE IN PAST YEAR [place] [facility] May 22, 2013 10:10 AM QUIT TOBACCO USE IN PAST YEAR [place] [facility] December 01, 2012 01:54 PM QUIT TOBACCO USE IN PAST YEAR [place] [facility] Jun 07, 2012 08:16 AM V1-PT DECLINES TOBACCO CESSATION MEDS [place] [facility] [place] [facility] Jun 07, 2012 08:16 AM V1-PT THINKING ABOUT QUIT TOBACCO USE [place] [facility] [place] [facility] Jan 05, 2012 09:00 AM CURRENT SMOKER intermittenly [place] [facility] [place] [facility] Jan 05, 2012 09:00 AM V1-PT DECLINES REF TO TOBACCO CESS PRGM [place] [facility] [place] [facility] Jan 05, 2012 09:00 AM V1-PT DECLINES TOBACCO CESSATION MEDS [place] [facility] [place] [facility] Jan 05, 2012 09:00 AM V1-PT THINKING ABOUT QUIT TOBACCO USE [place] [facility] [place] [facility] Feb 17, 2011 09:52 AM V1-PT DECLINES TOBACCO CESSATION MEDS [place] [facility] [place] [facility] Feb 17, 2011 09:52 AM V1-PT THINKING ABOUT QUIT TOBACCO USE [place] [facility] [place] [facility] Aug 13, 2010 11:31 AM QUIT TOBACCO USE IN PAST YEAR [place] [facility] [place] [facility] Feb 19, 2010 01:26 PM QUIT TOBACCO USE IN PAST YEAR [place] [facility] Sep 13, 2009 11:04 AM QUIT TOBACCO USE IN PAST YEAR [place] [facility] Feb 05, 2009 08:29 AM V1-PT DECLINES REF TO TOBACCO CESS [facility] [place] [place] [facility] Feb 05, 2009 08:29 AM V1-PT DECLINES TOBACCO CESSATION MEDS [place] [facility] [place] [facility] Feb 05, 2009 08:29 AM V1-PT THINKING ABOUT QUIT TOBACCO USE [place] [facility] [place] [facility] Aug 22, 2008 09:04 AM QUIT TOBACCO USE IN PAST YEAR [place] [facility] Mar 12, 2008 10:40 AM V1-PT DECLINES REF TO TOBACCO CESS PRGM [facility] [place] [facility] Mar 12, 2008 10:40 AM V1-PT DECLINES TOBACCO CESSATION MEDS [facility] [place] [facility] Mar 12, 2008 10:40 AM V1-PT NOT INTERESTED IN QUIT TOBACCO USE [place] [facility] [place] [facility] Mar 08, 2008 09:37 AM CURRENT SMOKER smokes one pack a day for about 10 years ago. [place] [facility] [facility] Encounter Notes: All associated encounter notes This section contains the clinical notes associated to the Encounter. Date/Time Encounter Note(s) Provider Source Apr 05, 2024 03:24 PM ADDENDUM: LOCAL TITLE: Addendum STANDARD TITLE: ADDENDUM DATE OF NOTE: APR 05, 2024@15:24:24 ENTRY DATE: APR 05, 2024@15:24:26 AUTHOR: FABIOLA ARTEAGA COSIGNER: URGENCY: STATUS: COMPLETED please offer next available /divya/ Fabiola Arteaga RN Primary Care Staff Nurse Signed: 04/05/2024 15:24 Receipt Acknowledged By: 04/06/2024 08:56 /divya/ ROSA WOLFE Advanced Sheet [employer] Shop Helper --- Original Document --- 04/05/24 CCC: SCHEDULING ADMINISTRATION: Patient Demographics Patient Name: REID QUEZADA Patient Primary Phone: [phone] Patient Primary Address: [address] [place] [id number] Patient : 1960 Patient Age: 64 Caller/Recipient Relation to Patient: Self Scheduling Cannot Complete Scheduling Action Reason: Not Authorized in Service Line Agreement Requested Service(s): Primary Care Patient Expects Callback: Yes Scheduling Note Reason: Cannot Complete Appointment Request Scheduling Note Comments: Patient was admitted to the [facility] hospital 04/02/24 for congestive heart failure she is being discharged today and is requesting a follow up apt with PCP. Open Request: None of the above IMPORTANT: This note was created by [facility] Clinical Contact Center staff. Please do not alert the staff member by adding them as a signer for future communications. Alerts are not monitored by this user. /es/ PRADEEP FALLON AWAN CCC AMSA Signed: 04/05/2024 14:59 Receipt Acknowledged By: 04/05/2024 15:24 /isabella Arteaga RN Primary Care Staff Nurse for OLGA Rosa PETER 04/05/2024 15:24 /isabella Arteaga, drilling supervisor Staff Nurse 04/06/2024 ADDENDUM STATUS: COMPLETED MSA lm to call back for appt. /divya/ ROAS WOLFE Advanced Sheet [employer] Shop Helper Signed: 04/06/2024 08:56 BRIANFABIOLA [place] [facility] Apr 05, 2024 02:59 PM ADMINISTRATIVE NOT E: LOCAL TITLE: CCC: SCHEDULING ADMINISTRATION STANDARD TITLE: ADMINISTRATIVE NOTE DATE OF NOTE: APR 05, 2024@14:59:41 ENTRY DATE: APR 05, 2024@14:59:41 AUTHOR: PRADEEP LEHMAN COSIGNER: URGENCY: STATUS: COMPLETED CCC: SCHEDULING ADMINISTRATION Has ADDENDA Patient Demographics Patient Name: REID QUEZADA Patient Primary Phone: [phone] Patient Primary Address: [address] [place] [id number] Patient : 1960 Patient Age: 64 Caller/Recipient Relation to Patient: Self Scheduling Cannot Complete Scheduling Action Reason: Not Authorized in Service Line Agreement Requested Service(s): Primary Care Patient Expects Callback: Yes Scheduling Note Reason: Cannot Complete Appointment Request Scheduling Note Comments: Patient was admitted to the [facility] hospital 04/02/24 for congestive heart failure she is being discharged today and is requesting a follow up apt with PCP. Open Request: None of the above IMPORTANT: This note was created by [facility] Clinical Contact Center staff. Please do not alert the staff member by adding them as a signer for future communications. Alerts are not monitored by this user. /divya/ PRADEEP JEFFRIESN1 CCC AMSA Signed: 04/05/2024 14:59 Receipt Acknowledged By: 04/05/2024 15:24 /isabella Arteaga RN Primary Care Staff Nurse for OLGA Rosa PETER 04/05/2024 15:24 /isabella Arteaga, drilling supervisor Staff Nurse 04/05/2024 ADDENDUM STATUS: COMPLETED please offer next available /es/ Fabiola Arteaga RN Primary Care Staff Nurse Signed: 04/05/2024 15:24 Receipt Acknowledged By: 04/06/2024 08:56 /divya/ ROSA WOLFE Advanced [employer] Shop Helper 04/06/2024 ADDENDUM STATUS: COMPLETED MSA lm to call back for appt. /divya/ ROSA WOLFE Advanced [employer] Shop Helper Signed: 04/06/2024 08:56 PRADEEP LEHMAN CNTRL [facility]
--- OUTSIDE RECORDS SUMMARY | 2024-07-25 11:38 | XMS_ITS ---
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 [place] Organization [facility] [place] [facility] [place] Address [address] [place] [id number] Care Team Providers Care Internal Medicine Physician Assistant Name Role Phone ROMANA CASTILLO Primary [...] Patient's Relationship to Policy Garcia [facility] (MEDICAID) [facility] May 14, 2009 [id number] SAMPLE,ROCCO MOORE PATIENT [facility] May 14, 2009 [id number] SAMPLE,ROCCO MOORE PATIENT MEDICAID MEDICAID [facility] Jul 26, 2018 MEDICAI D [id number] SAMPLE,ROCCO MOORE PATIENT MEDICARE (WNR) MEDICARE (M) PART A November 24, 2015 PART A [id number] SAMPLE,ROCCO MOORE PATIENT MEDICARE (WNR) MEDICARE (M) PART B November 24, 2015 PART B [id number] [facility] PATIENT Selected Encounter This section includes the information on record at [place] for the Encounter. Date/Time Encounter Type Encounter Description Reason Provider Source Apr 13, 2024 11:00 AM Outpatient Encounter TELEPHONE MH ICD-10-CM F41.9 Anxiety disorder, unspecified REHAN HAWKINS MD [facility] Encounter Template Text not used by [place] Assessments - Encounter Diagnoses This section includes the primary and secondary diagnoses documented for the Encounter. Date/Time Primary/Secondary Diagnosis Diagnosis Name Provider Source Apr 13, 2024 11:00 AM PRIMARY Anxiety disorder, unspecified BAYRON HAWKINS MD [place] [facility] [place] [facility] Apr 13, 2024 11:00 AM SECONDARY Insomnia, unspecified [facility]AYRON HAWKINS MD [facility] [place] [facility] Plan of Treatment: Future Appointments (+ [...] 02, 2024 11:00 AM AMBULATORY - MEDICINE [place] C [facility] [place] [facility] May 15, 2024 11:30 AM AMBULATORY - PSYCHIATRY [place] [facility] [facility] May 25, 2024 11:30 AM AMBULATORY - MEDICINE [place] C [facility] [place] [facility] Jul 13, 2024 10:00 AM AMBULATORY - MEDICINE [place] [facility] [place] [facility] Aug 03, 2024 01:00 PM AMBULATORY - PSYCHIATRY [place] [facility] [place] [facility] Aug 24, 2024 11:00 AM AMBULATORY - MEDICINE [place] C [facility] [facility] Sep 07, 2024 11:30 AM AMBULATORY - MEDICINE [place] C [facility] [place] [facility] Vital Signs: All taken on the encounter date This section contains inpatient and outpatient Vital Signs collected on the date of the Encounter. Date/Time Temperature Pulse Blood Pressure Respiratory Rate SP02 Pain Height Weight Body Mass Index Source Apr 13, 2024 02:12 PM 97 63 118/66 19 95 [place] [facility] [place] [facility] Social History: Smoking Status (Most current) [...] 06, 2024 09:00 AM VA-TOBACCO FORMER USER [facility] Tobacco Use History This section includes a history of the smoking, or tobacco-related health factors, that were collected on or before the date of the Encounter. The data comes from the [place] facility where the Encounter took place. Date/Time Smoking Status/Tobac co Use Comment Facility Mar 06, 2024 09:00 AM VA-TOBACCO QUIT 15 YRS OR MORE [place] [facility] [facility] Mar 31, 2023 11:00 AM VA-TOBACCO FORMER USER [place] [facility] [facility] Mar 31, 2023 11:00 AM VA-TOBACCO QUIT 1 TO < 5 YRS [place] [facility] [place] [facility] Mar 25, 2022 10:30 AM VA-TOBACCO NEVER USED [place] [facility] [facility] Mar 19, 2021 02:00 PM VA-TOBACCO FORMER USER [place] [facility] [facility] Mar 19, 2021 02:00 PM VA-TOBACCO QUIT < 1 YEAR [place] [facility] [facility] Sep 20, 2018 11:24 AM VA-TOBACCO USE DECLINED TO ANSWER [place] [facility] [facility] Oct 21, 2017 08:13 AM QUIT TOBACCO USE IN PAST YEAR [place] [facility] [facility] Dec 30, 2016 08:28 AM QUIT TOBACCO USE 1-7 YEARS AGO [place] [facility] [facility] Jun 04, 2016 08:43 AM QUIT TOBACCO USE 1-7 YEARS AGO [place] [facility] [place] [facility] May 17, 2015 08:45 AM QUIT TOBACCO USE 1-7 YEARS AGO quit 2 years ago. [place] [facility] [facility] Jun 07, 2014 09:25 AM QUIT TOBACCO USE 1-7 YEARS AGO [facility] [facility] November 30, 2013 08:44 AM QUIT TOBACCO USE IN PAST YEAR [place] [facility] [place] [facility] May 22, 2013 10:10 AM QUIT TOBACCO USE IN PAST YEAR [facility] [facility] December 01, 2012 01:54 PM QUIT TOBACCO USE IN PAST YEAR [facility] [place] [facility] Jun 07, 2012 08:16 AM V1-PT DECLINES TOBACCO CESSATION MEDS [place] [facility] [place] [facility] Jun 07, 2012 08:16 AM V1-PT THINKING ABOUT QUIT TOBACCO USE [place] [facility] [facility] Jan 05, 2012 09:00 AM CURRENT SMOKER intermittenly [place] [facility] [facility] Jan 05, 2012 09:00 AM V1-PT DECLINES REF TO TOBACCO CESS PRGM [facility] [place] [facility] Jan 05, 2012 09:00 AM V1-PT DECLINES TOBACCO CESSATION MEDS [place] [facility] [facility] Jan 05, 2012 09:00 AM V1-PT THINKING ABOUT QUIT TOBACCO USE [facility] [place] [facility] Feb 17, 2011 09:52 AM V1-PT DECLINES TOBACCO CESSATION MEDS [facility] [place] [facility] Feb 17, 2011 09:52 AM V1-PT THINKING ABOUT QUIT TOBACCO USE [place] [facility] [facility] Aug 13, 2010 11:31 AM QUIT TOBACCO USE IN PAST YEAR [facility] [place] [facility] Feb 19, 2010 01:26 PM QUIT TOBACCO USE IN PAST YEAR [place] [facility] [facility] Sep 13, 2009 11:04 AM QUIT TOBACCO USE IN PAST YEAR [place] [facility] [facility] Feb 05, 2009 08:29 AM V1-PT DECLINES REF TO TOBACCO CESS PRGM [place] [facility] [facility] Feb 05, 2009 08:29 AM V1-PT DECLINES TOBACCO CESSATION MEDS [place] [facility] [place] [facility] Feb 05, 2009 08:29 AM V1-PT THINKING ABOUT QUIT TOBACCO USE [facility] [place] [facility] Aug 22, 2008 09:04 AM QUIT TOBACCO USE IN PAST YEAR [facility] Mar 12, 2008 10:40 AM V1-PT DECLINES REF TO TOBACCO CESS PRGM [facility] Mar 12, 2008 10:40 AM V1-PT DECLINES TOBACCO CESSATION MEDS [facility] Mar 12, 2008 10:40 AM V1-PT NOT INTERESTED IN QUIT TOBACCO USE [facility] Mar 08, 2008 09:37 AM CURRENT SMOKER smokes one pack a day for about 10 years ago. [facility] Encounter Notes: All associated encounter notes [...] DIPHTHERIA TOXOID 0.5ML INTRAMUSCULARLY NOW 6) Non-VA QBAVNUENKGLO95.5/VILANTERO L25MCG 30D INH 1 INHALATION BY MOUTH [...] get the clonazepam and temazepam from her diet tech and he retired. Umair states she has been on the same dose of clonazepam and temazepam for over 3 years. Clonazepam was recommended by her diet tech and also stated the clonazepam. Umair tried other anxiety meds, they were awful. No complaints, no cravings, and no adverse side effects from current medications were reported, none that I know of . Mood is stable, good. Sleep and appetite are both, they're fine. Discussed continuation of present medications as above. Patient education given including that benzodiazepines are not indicated long-term and that there is a possible [...] clonazepam and temazepam. Suicide Screen: C-SSRS Screening [place]-Suicide Severity Rating Scale (C-SSRS Screener) 1. Over [...] Not worried about housing near future The reports the following: Within the past 12 [...] PSYCHIATRIST Signed: 04/13/2024 13:04 J[facility] HAWKINS [facility]
--- OUTSIDE RECORDS SUMMARY | 2024-07-25 11:38 | XMS_ITS ---
Author Name [facility] [place] Organization [facility] [place] [facility] [place] Address [address] [place] [address] Care Team Providers Care Medical Record Transcriber Name Role Phone ROMANA CASTILLO Primary Care [...] Garcia [facility] (MEDICAID) [place]ICAID [place] [facility]AN [facility] May 14, 2009 [id number] SAMPLE,ROCCO MOORE PATIENT [facility]ICAID [facility] May 14, 2009 [id number] SAMPLE,ROCCO MOORE PATIENT MEDICAID MEDICAID [facility] Jul 26, 2018 MEDICAI D [id number] SAMPLE,ROCCO MOORE PATIENT MEDICARE (WNR) MEDICARE (M) PART A November 24, 2015 PART A [id number] SAMPLE,ROCCO MOORE PATIENT MEDICARE (WNR) MEDICARE (M) PART B November 24, 2015 PART B [id number] SAMPLE,ROCCO MOORE PATIENT Selected Encounter This [...] AMBULATORY - PSYCHIATRY [place] [facility] [place] [facility] Apr 13, 2024 02:00 PM AMBULATORY - MEDICINE [place] [facility] [place] [facility] Apr 13, 2024 03:00 PM AMBULATORY - MEDICINE [place] [facility] [place] [facility] May 02, 2024 11:00 AM AMBULATORY - MEDICINE [place] [facility] [place] [facility] May 15, 2024 11:30 AM AMBULATORY - PSYCHIATRY [place] [facility] [place] [facility] May 25, 2024 11:30 AM AMBULATORY - MEDICINE [place] [facility] [place] [facility] Jul 13, 2024 10:00 AM AMBULATORY - MEDICINE [place] [facility] [place] [facility] Aug 03, 2024 01:00 PM AMBULATORY - PSYCHIATRY [place] [facility] [place] [facility] Aug 24, 2024 11:00 AM AMBULATORY - MEDICINE [place] C [facility] [place] [facility] Sep 07, 2024 11:30 AM AMBULATORY - MEDICINE [facility] [place] [facility] Social History: Smoking Status (Most current) and [...] 06, 2024 09:00 AM VA-TOBACCO FORMER USER [facility] [place] [facility] Tobacco Use History This section includes a history of the smoking, or tobacco-related health factors, that were collected on or before the date of the Encounter. The data comes from the [place] facility where the Encounter took place. Date/Time Smoking Status/Tobac co Use Comment Facility Mar 06, 2024 09:00 AM VA-TOBACCO QUIT 15 YRS OR MORE [place] [facility] [place] [facility] Mar 31, 2023 11:00 AM VA-TOBACCO FORMER USER [place] [facility] [place] [facility] Mar 31, 2023 11:00 AM VA-TOBACCO QUIT 1 TO < 5 YRS [place] [facility] [place] [facility] Mar 25, 2022 10:30 AM VA-TOBACCO NEVER USED [place] [facility] [place] [facility] Mar 19, 2021 02:00 PM VA-TOBACCO FORMER USER ID [facility] [place] [facility] Mar 19, 2021 02:00 PM VA-TOBACCO QUIT < 1 YEAR [place] [facility] [place] [facility] Sep 20, 2018 11:24 AM VA-TOBACCO USE DECLINED TO ANSWER [place] [facility] [place] [facility] Oct 21, 2017 08:13 AM QUIT TOBACCO USE IN PAST YEAR [place] [facility] [place] [facility] Dec 30, 2016 08:28 AM QUIT TOBACCO USE 1-7 YEARS AGO [place] [facility] [place] [facility] Jun 04, 2016 08:43 AM QUIT TOBACCO USE 1-7 YEARS AGO [place] [facility] [place] [facility] May 17, 2015 08:45 AM QUIT TOBACCO USE 1-7 YEARS AGO quit 2 years ago. [place] [facility] [place] [facility] Jun 07, 2014 09:25 AM QUIT TOBACCO USE 1-7 YEARS AGO [place] [facility] [place] [facility] November 30, 2013 08:44 AM QUIT TOBACCO USE IN PAST YEAR [place] [facility] [place] [facility] May 22, 2013 10:10 AM QUIT TOBACCO USE IN PAST YEAR [place] [facility] [place] [facility] December 01, 2012 01:54 PM QUIT TOBACCO USE IN PAST YEAR [place] [facility] [place] [facility] Jun 07, 2012 08:16 AM V1-PT DECLINES TOBACCO CESSATION MEDS [facility] [place] [facility] Jun 07, 2012 08:16 AM V1-PT THINKING ABOUT QUIT TOBACCO USE [facility] [place] [facility] Jan 05, 2012 09:00 AM CURRENT SMOKER intermittenly [place] [facility] [place] [facility] Jan 05, 2012 09:00 AM V1-PT DECLINES REF TO TOBACCO CESS PRGM [facility] [place] [facility] Jan 05, 2012 09:00 AM V1-PT DECLINES TOBACCO CESSATION MEDS [facility] [place] [facility] Jan 05, 2012 09:00 AM V1-PT THINKING ABOUT QUIT TOBACCO USE [facility] [place] [facility] Feb 17, 2011 09:52 AM V1-PT DECLINES TOBACCO CESSATION MEDS [facility] [place] [facility] Feb 17, 2011 09:52 AM V1-PT THINKING ABOUT QUIT TOBACCO USE [facility] [place] [facility] Aug 13, 2010 11:31 AM QUIT TOBACCO USE IN PAST YEAR [facility] [place] [facility] Feb 19, 2010 01:26 PM QUIT TOBACCO USE IN PAST YEAR [facility] [place] [facility] Sep 13, 2009 11:04 AM QUIT TOBACCO USE IN PAST YEAR [facility] [place] [facility] Feb 05, 2009 08:29 AM V1-PT DECLINES REF TO [facility]BACCO CESS [facility] [place] [facility] Feb 05, 2009 08:29 AM V1-PT DECLINES TOBACCO CESSATION MEDS [facility] [place] [facility] Feb 05, 2009 08:29 AM V1-PT THINKING ABOUT QUIT TOBACCO USE [facility] [place] [facility] Aug 22, 2008 09:04 AM QUIT TOBACCO USE IN PAST YEAR [place] [facility] [place] [facility] Mar 12, 2008 10:40 AM V1-PT DECLINES REF TO TOBACCO CESS PRGM [facility] [place] [facility] Mar 12, 2008 10:40 AM V1-PT DECLINES TOBACCO CESSATION MEDS [facility] [place] [facility] Mar 12, 2008 10:40 AM V1-PT NOT INTERESTED IN QUIT TOBACCO USE [facility] [place] [facility] Mar 08, 2008 09:37 AM CURRENT SMOKER smokes one pack a day for about 10 years ago. [place] [facility] Encounter Notes: All associated encounter notes This section contains the clinical notes associated to the Encounter. Date/Time Encounter Note(s) Provider Source Apr 06, 2024 10:53 AM ADDENDUM: LOCAL TITLE: Addendum STANDARD TITLE: ADDENDUM DATE OF NOTE: APR 06, 2024@10:53:25 ENTRY DATE: APR 06, 2024@10:53:26 AUTHOR: JOHN ARTEAGA EXP COSIGNER: URGENCY: STATUS: COMPLETED please offer next avail. Vet recently in hospital for heart failure. can book into thurs if need be /isabella Arteaga RN Primary Care Staff Nurse Signed: 04/06/2024 10:54 Receipt Acknowledged By: 04/06/2024 11:02 /isabella WOLFE Advanced Detail Manager --- Original Document --- 04/06/24 CCC: SCHEDULING ADMINISTRATION: Patient Demographics Patient Name: REID QUEZADA Patient Primary Phone: [phone] Patient Primary Address: [address] [place] [id number] Patient : 1960 Patient Age: 64 Caller/Recipient Relation to Patient: Self Administrative Administrative Note Reason: Returned Call Administrative Note Comments: Pt called stating returning PACT call regarding set up PCP appt for post hospital discharge. Pt's call back number is [phone]. IMPORTANT: This note was created by [facility] Clinical Contact Center staff. Please do not alert the staff member by adding them as a signer for future communications. Alerts are not monitored by this user. /divya/ MARIPOSA BOUDREAUX Signed: 04/06/2024 10:40 Receipt Acknowledged By: 04/06/2024 11:02 /isabella WOLFE Advanced Detail Manager 04/06/2024 10:54 /isabella Arteaga RN Primary Care Staff Nurse 04/06/2024 ADDENDUM STATUS: COMPLETED Scheduled for 04/13. /isabella WOLFE Advanced Detail Manager Signed: 04/06/2024 11:01 JOHN ARTEAGA [facility] [place] [facility] Apr 06, 2024 10:40 AM ADMINISTRATIVE NOT E: LOCAL TITLE: CCC: SCHEDULING ADMINISTRATION STANDARD TITLE: ADMINISTRATIVE NOTE DATE OF NOTE: APR 06, 2024@10:40:41 ENTRY DATE: APR 06, 2024@10:40:41 AUTHOR: MARIPOSA BOUDREAUX COSIGNER: URGENCY: STATUS: COMPLETED CCC: SCHEDULING ADMINISTRATION Has ADDENDA Patient Demographics Patient Name: REID QUEZADA Patient Primary Phone: [phone] Patient Primary Address: [address] [place] [id number] Patient : 1960 Patient Age: 64 Caller/Recipient Relation to Patient: Self Administrative Administrative Note Reason: Returned Call Administrative Note Comments: Pt called stating returning PACT call regarding set up PCP appt for post hospital discharge. Pt's call back number is [phone]. IMPORTANT: This note was created by [facility] Clinical Contact Center staff. Please do not alert the staff member by adding them as a signer for future communications. Alerts are not monitored by this user. /isabella BOUDREAUX Signed: 04/06/2024 10:40 Receipt Acknowledged By: 04/06/2024 11:02 /isabella WOLFE Advanced Detail Manager 04/06/2024 10:54 /isabella Arteaga RN Primary Care Staff Nurse 04/06/2024 ADDENDUM STATUS: COMPLETED please offer next avail. Vet recently in hospital for heart failure. can book into thurs if need be /isabella Arteaga RN Primary Care Staff Nurse Signed: 04/06/2024 10:54 Receipt Acknowledged By: 04/06/2024 11:02 /isabella WOLFE Advanced Detail Manager 04/06/2024 ADDENDUM STATUS: COMPLETED Scheduled for 9/19. /isabella WOLFE Advanced Detail Manager Signed: 04/06/2024 11:01 MARIPOSA BOUDREAUX CN[facility]
--- OUTSIDE RECORDS SUMMARY | 2024-07-25 11:38 | XMS_ITS ---
Author Name [facility] [place] Address [address] [place] [id number] Care Team Providers Care Certified Surgical First Assistant Name Role Phone ROMANA CASTILLO Primary [...] Garcia's Name Patient's Relationship to Policy Garcia [facility] (MEDICAID) MEDICAID [facility] May 14, 2009 [id number] SAMPLE,ROCCO MOORE PATIENT [facility] MEDICAID [facility] May 14, 2009 [id number] SAMPLE,ROCCO MOORE PATIENT MEDICAID MEDICAID [facility] ENRICO ESTEFANY Jul 26, 2018 MEDICAI D [id number] SAMPLE,ROCCO MOORE PATIENT MEDICARE (WNR) MEDICARE (M) PART A November 24, 2015 PART A [id number] SAMPLE,ROCCO MOORE PATIENT MEDICARE (WNR) MEDICARE (M) PART B November 24, 2015 PART B [id number] SAMPLE,ROCCO MOORE PATIENT Selected Encounter This section includes the information on record at [place] for the Encounter. Date/Time Encounter Type Encounter Description Reason Provider Source Apr 13, 2024 03:00 PM OFF/OP EST NOVEMBER X REQ PHY/QHP PRIMARY CARE/MEDICINE ICD-10-CM Z23 Encounter for immunization CHIMANNY,TIMOT HY E IHE Encounter Template Text not used by VA Assessments - Encounter Diagnoses This section includes the primary and secondary diagnoses documented for the Encounter. Date/Time Primary/Secondary Diagnosis Diagnosis Name Provider Source Apr 13, 2024 03:21 PM PRIMARY Encounter for immunization CHIMANNY,TIMOT HY E [place] [facility] [place] [facility] Plan of Treatment: Future Appointments (+ [...] 02, 2024 11:00 AM AMBULATORY - MEDICINE [place] [facility] [place] [facility] May 15, 2024 11:30 AM AMBULATORY - PSYCHIATRY [place] [facility] [place] [facility] May 25, 2024 11:30 AM AMBULATORY - [place]ICINE [place] [place] [facility] Jul 13, 2024 10:00 AM AMBULATORY - MEDICINE [place] [facility] [facility] Aug 03, 2024 01:00 PM AMBULATORY - PSYCHIATRY [place] [facility] [place] [facility] Aug 24, 2024 11:00 AM AMBULATORY - MEDICINE [place] [facility] [place] [facility] Sep 07, 2024 11:30 AM AMBULATORY - MEDICINE [facility] [place] [facility] Vital Signs: All taken on the encounter date This section contains inpatient and outpatient Vital Signs collected on the date of the Encounter. Date/Time Temperature Pulse Blood Pressure Respiratory Rate SP02 Pain Height Weight Body Mass Index Source Apr 13, 2024 02:12 PM 97 63 118/66 19 95 [place] [facility] [place] [facility] Immunizations: All administered on the encounter [...] took place. Date/Time Current Smoking Status Comment [facility] Mar 06, 2024 09:00 AM VA-TOBACCO QUIT 15 YRS OR MORE [facility] Tobacco Use History This section includes a history of the smoking, or tobacco-related health factors, that were collected on or before the date of the Encounter. The data comes from the [place] facility where the Encounter took place. Date/Time Smoking Status/Tobac co Use Comment [facility] Mar 06, 2024 09:00 AM VA-TOBACCO QUIT 15 YRS OR MORE [place] [facility] [facility] Mar 31, 2023 11:00 AM VA-TOBACCO FORMER USER [place] [facility] [facility] Mar 31, 2023 11:00 AM VA-TOBACCO QUIT 1 TO < 5 YRS [place] [facility] [place] [facility] Mar 25, 2022 10:30 AM VA-TOBACCO NEVER USED [place] [facility] [place] [facility] Mar 19, 2021 02:00 PM VA-TOBACCO FORMER USER [place] [facility] [facility] Mar 19, 2021 02:00 PM VA-TOBACCO QUIT < 1 YEAR [place] [facility] [facility] Sep 20, 2018 11:24 AM VA-TOBACCO USE DECLINED TO ANSWER [place] [facility] [facility] Oct 21, 2017 08:13 AM QUIT TOBACCO USE IN PAST YEAR [place] [facility] [place] [facility] Dec 30, 2016 08:28 AM QUIT TOBACCO USE 1-7 YEARS AGO [place] [facility] [place] [facility] Jun 04, 2016 08:43 AM QUIT TOBACCO USE 1-7 YEARS AGO [place] [facility] [place] [facility] May 17, 2015 08:45 AM QUIT TOBACCO USE 1-7 YEARS AGO quit 2 years ago. [place] [facility] [place] [facility] Jun 07, 2014 09:25 AM QUIT TOBACCO USE 1-7 YEARS AGO [place] [facility] [place] [facility] November 30, 2013 08:44 AM QUIT TOBACCO USE IN PAST YEAR [facility] [place] [facility] May 22, 2013 10:10 AM QUIT TOBACCO USE IN PAST YEAR [place] [facility] [place] [facility] December 01, 2012 01:54 PM QUIT TOBACCO USE IN PAST YEAR [facility] Jun 07, 2012 08:16 AM V1-PT DECLINES TOBACCO CESSATION MEDS [facility] [place] [facility] Jun 07, 2012 08:16 AM V1-PT THINKING ABOUT QUIT TOBACCO USE [facility] [place] [facility] Jan 05, 2012 09:00 AM CURRENT SMOKER intermittenly [facility] [place] [facility] Jan 05, 2012 09:00 AM V1-PT DECLINES REF TO TOBACCO CESS PRGM [facility] [place] [facility] Jan 05, 2012 09:00 AM V1-PT DECLINES TOBACCO CESSATION MEDS [facility] [place] [facility] Jan 05, 2012 09:00 AM V1-PT THINKING ABOUT QUIT TOBACCO USE [facility] Feb 17, 2011 09:52 AM V1-PT DECLINES TOBACCO CESSATION MEDS [facility] [place] [facility] Feb 17, 2011 09:52 AM V1-PT THINKING ABOUT QUIT TOBACCO USE [place] [facility] [place] [facility] Aug 13, 2010 11:31 AM QUIT TOBACCO USE IN PAST YEAR [facility] [place] [facility] Feb 19, 2010 01:26 PM QUIT TOBACCO USE IN PAST YEAR [facility] [place] [facility] Sep 13, 2009 11:04 AM QUIT TOBACCO USE IN PAST YEAR [facility] [place] [facility] Feb 05, 2009 08:29 AM V1-PT DECLINES REF TO TOBACCO CESS PRGM [facility] [place] [place] [facility] Feb 05, 2009 08:29 AM V1-PT DECLINES TOBACCO CESSATION MEDS [facility] Feb 05, 2009 08:29 AM V1-PT THINKING ABOUT QUIT TOBACCO USE [facility] Aug 22, 2008 09:04 AM QUIT TOBACCO USE IN PAST YEAR [facility] Mar 12, 2008 10:40 AM V1-PT DECLINES REF TO TOBACCO CESS PRGM [facility] Mar 12, 2008 10:40 AM V1-PT DECLINES TOBACCO CESSATION MEDS [facility] Mar 12, 2008 10:40 AM V1-PT NOT INTERESTED IN QUIT TOBACCO USE [facility] Mar 08, 2008 09:37 AM CURRENT SMOKER smokes one pack a day for about 10 years ago. [facility] Encounter Notes: All associated encounter notes This section contains the clinical notes associated to the Encounter. Date/Time Encounter Note(s) Provider Source Apr 13, 2024 03:08 PM PREVENTIVE MEDICIN E NURSING NOTE: LOCAL TITLE: CLINICAL REMINDERS/NURSING STANDARD TITLE: PREVENTIVE MEDICINE NURSING NOTE DATE OF NOTE: APR 13, 2024@15:08 ENTRY DATE: APR 13, 2024@15:08:25 AUTHOR: JASON RING COSIGNER: URGENCY: STATUS: COMPLETED Homelessness/Food Insecurity Screen: [...] PF Date Administered: Apr 13, 2024 15:00 Network Director: SANOFI PASTEUR Lot: [id number] Exp Date: Jan 22, 2025 NDC: [id number] Admin Route/Site: INTRAMUSCULAR/Left DELTOID Dosage: 0.5mL Vaccine Information Statement(s): INFLUENZA(FLU) VACC(INACTIVATED OR RECOMBINANT)VIS Feb 28, 2021 ([place]) Order By: Policy Administered By: Jason Ring [...] YEARS) Date Administered: Apr 13, 2024 15:00 Network Director: Cydan. Lot: [id number] Exp Date: December 16, 2024 NDC: [id number] Admin Route/Site: INTRAMUSCULAR/RIGHT DELTOID Dosage: 0.5mL Vaccine Information Statement(s): COVID-19 MRNA VACCINE (12+ YRS) VACCINE VIS May 13, 2023 ([place]) Order By: Policy Administered By: Jason Ring Vaccine administered without complications. /divya/ JASON RING MSN Ed., BSN STATEMENT PROCESSOR NURSE Signed: 04/13/2024 15:21 JASON RING [place] [facility]
--- OUTSIDE RECORDS SUMMARY | 2024-07-25 11:38 | XMS_ITS ---
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 Address [address] [place] [id number] Care Team Providers Care Power Sweeper Operator Name Role Phone ROMANA CASTILLO Primary [...] Garcia [facility] (MEDICAID) MEDICAID [facility] May 14, 2009 [id number] SAMPLE,ROCCO MOORE PATIENT [facility] MEDICAID [facility] May 14, 2009 [id number] SAMPLE,ROCCO MOORE PATIENT MEDICAID MEDICAID [facility] Jul 26, 2018 MEDICAI D [id number] SAMPLE,ROCCO MOORE PATIENT MEDICARE (WNR) MEDICARE (M) PART A November 24, 2015 PART A [id number] SAMPLE,ROCCO MOORE PATIENT MEDICARE (WNR) MEDICARE (M) PART B November 24, 2015 PART B [id number] [phone] ROCCO QUEZADA PATIENT Selected Encounter This section includes the information on record at [place] for the Encounter. Date/Time Encounter Type Encounter Description Reason Pro vider Source Apr 14, 2024 11:14 AM Outpatient Encounter [facility] Encounter Template Text not used by [place] Plan of Treatment: Future Appointments (+ 6 months) and Future Tests (+/- 45 days) The Plan of Treatment section includes future care activities for the patient [facility] [place] [facility] This section includes future appointments and [...] 02, 2024 11:00 AM AMBULATORY - MEDICINE [facility] May 15, 2024 11:30 AM [facility] May 25, 2024 11:30 AM AMBULATORY MEDICINE [facility] [place] [facility] Jul 13, 2024 10:00 AM AMBULATORY - MEDICINE [facility] [place] [facility] Aug 03, 2024 01:00 PM AMBULATORY PS[place]CHIATRY [place] [facility] [place] [facility] Aug 24, 2024 11:00 AM AMBULATORY - MEDICINE [facility] [place] [place] [facility] Sep 07, 2024 11:30 AM AMBULATORY MEDICINE [facility] Social History: Smoking Status [...] Facil ity Mar 06, 2024 09:00 AM [place]-TO[place]AC[place] QU[place] 15 YRS OR [facility] Tobacco Use History This section includes a history of the smoking, or tobacco-related health factors, that were collected on or before the date of the Encounter. The data comes from the [place] facility where the Encounter took place. Date/Time Smoking Status/Tobac co Use Comment Facility Mar 06, 2024 09:00 AM VA-TOBACCO QUIT 15 YRS OR MORE [place] [facility] [place] [place] [facility] Mar 31, 2023 11:00 AM VA-TOBACCO FORMER USER [place] [facility] [facility] Mar 31, 2023 11:00 AM VA-TOBACCO QUIT 1 TO < 5 YRS [place] [facility] [place] [facility] Mar 25, 2022 10:30 AM VA-TOBACCO NEVER USED [place] [facility] [place] [facility] Mar 19, 2021 02:00 PM VA-TOBACCO FORMER USER [place] [facility] [place] [facility] Mar 19, 2021 02:00 PM VA-TOBACCO QUIT < 1 YEAR [place] [facility] [place] [facility] Sep 20, 2018 11:24 AM VA-TOBACCO USE DECLINED TO ANSWER [place] [facility] [place] [facility] Oct 21, 2017 08:13 AM QUIT TOBACCO USE IN PAST YEAR [place] [facility] [place] [facility] Dec 30, 2016 08:28 AM QUIT TOBACCO USE 1-7 YEARS AGO [place] [facility] [place] [place] [facility] Jun 04, 2016 08:43 AM QUIT TOBACCO USE 1-7 YEARS AGO [place] [facility] [place] [facility] May 17, 2015 08:45 AM QUIT TOBACCO USE 1-7 YEARS AGO quit 2 years ago. [place] [facility] [place] [facility] Jun 07, 2014 09:25 AM QUIT TOBACCO USE 1-7 YEARS AGO [place] [facility] [place] [facility] November 30, 2013 08:44 AM QUIT TOBACCO USE IN PAST YEAR [place] [facility] [place] [facility] May 22, 2013 10:10 AM QUIT TOBACCO USE IN PAST YEAR [place] [facility] [place] [facility] December 01, 2012 01:54 PM QUIT TOBACCO USE IN PAST YEAR [place] [facility] [place] [facility] Jun 07, 2012 08:16 AM V1-PT DECLINES TOBACCO CESSATION MEDS [place] [facility] [place] [facility] Jun 07, 2012 08:16 AM V1-PT THINKING ABOUT QUIT TOBACCO USE [place] [facility] [place] [facility] Jan 05, 2012 09:00 AM CURRENT SMOKER intermittenly [place] [facility] [place] [facility] Jan 05, 2012 09:00 AM V1-PT DECLINES REF TO TOBACCO CESS PRGM [place] [facility] [place] [facility] Jan 05, 2012 09:00 AM V1-PT DECLINES TOBACCO CESSATION MEDS [place] [facility] [place] [facility] Jan 05, 2012 09:00 AM V1-PT THINKING ABOUT QUIT TOBACCO USE [place] [facility] [place] [facility] Feb 17, 2011 09:52 AM V1-PT DECLINES TOBACCO CESSATION MEDS [place] [facility] [place] [facility] Feb 17, 2011 09:52 AM V1-PT THINKING ABOUT QUIT TOBACCO USE [place] [facility] [place] [facility] Aug 13, 2010 11:31 AM QUIT TOBACCO USE IN PAST YEAR [place] [facility] [place] [facility] Feb 19, 2010 01:26 PM QUIT TOBACCO USE IN PAST YEAR [place] [facility] [place] [facility] Sep 13, 2009 11:04 AM QUIT TOBACCO USE [facility]ST [facility] [place] [facility] Feb 05, 2009 08:29 AM V1-PT DECLINES REF TO TOBACCO CESS [facility] [place] [facility] Feb 05, 2009 08:29 AM V1-PT DECLINES TOBACCO CESSATION [facility] [place] [facility] Feb 05, 2009 08:29 AM V1-PT THINKING ABOUT QUIT TOBACCO USE [place] [facility] [place] [facility] Aug 22, 2008 09:04 AM QUIT TOBACCO USE IN PAST YEAR [facility] [place] [facility] Mar 12, 2008 10:40 AM V1-PT DECLINES REF TO TOBACCO CESS PRGM [place] [facility] [place] [facility] Mar 12, 2008 10:40 AM V1-PT DECLINES TOBACCO CESSATION MEDS [place] [facility] [place] [facility] Mar 12, 2008 10:40 AM V1-PT NOT INTERESTED IN QUIT TOBACCO USE [place] [facility] [place] [facility] Mar 08, 2008 09:37 AM CURRENT SMOKER smokes one pack a day for about 10 years ago. [facility] [place] [facility] Encounter Notes: All associated encounter notes This section contains the clinical notes associated to the Encounter. Date/Time Encounter Note(s) Provider Source Apr 14, 2024 11:14 AM ADMINISTRATIVE NOT E: LOCAL TITLE: ADMINISTRATIVE NOTE STANDARD TITLE: ADMINISTRATIVE NOTE DATE OF NOTE: APR 14, 2024@11:14 ENTRY DATE: APR 14, 2024@11:14:39 AUTHOR: KOURTNEY BAILEY COSIGNER: URGENCY: STATUS: COMPLETED Safety Security Officer call [place] to schedule next appt., [place] stay and I quote that she will call to schedule appt. /divya/ KOURTNEY BAILEY ADVANCED GAS ENGINE MECHANIC Signed: 04/14/2024 11:15 KOURTNEY BAILEY [place] [facility]
--- OUTSIDE RECORDS SUMMARY | 2024-07-25 11:38 | XMS_ITS ---
Author Name [place] Address [address] [place] [address] Care Team Providers Care Ocean Import Representative Name Role Phone ROMANA CASTILLO Primary Care [...] Policy Garcia [facility] (MEDICAID) [facility]ID [facility] May 14, 2009 [id number] SAMPLE,ROCCO MOORE PATIENT [facility] MEDICAID [facility] May 14, 2009 [id number] SAMPLE,ROCCO MOORE PATIENT MEDICAID MEDICAID [facility] Jul 26, 2018 MEDICAI D [id number] SAMPLE,ROCCO MOORE PATIENT MEDICARE (WNR) MEDICARE (M) PART A November 24, 2015 PART A [id number] SAMPLE,ROCCO MOORE PATIENT MEDICARE (WNR) MEDICARE (M) PART B November 24, 2015 PART B [id number] SAMPLE,ROCCO MOORE PATIENT Selected Encounter This [...] PM PRIMARY Heart failure, unspecified ROMANA CASTILLO [place] [facility] [place] [facility] Apr 13, 2024 03:10 PM SECONDARY Anemia, unspecified ROMANA CASTILLO [place] [facility] [place] [facility] Apr 13, 2024 03:10 PM SECONDARY Anxiety disorder, unspecified ROMANA CASTILLO [place] [facility] [place] [facility] Apr 13, 2024 03:10 PM SECONDARY Essential (primary) hypertension ROMANA CASTLILO [place] [facility] [place] [facility] Apr 13, 2024 03:10 PM SECONDARY Morbid (severe) obesity with alveolar hypoventilation ROMANA CASTILLO [place] [facility] [place] [facility] Plan of Treatment: Future Appointments (+ 6 [...] - MEDICINE [place] [facility] [place] [facility] May 15, 2024 11:30 AM AMBULATORY - PSYCHIATRY [place] [facility] [place] [facility] May 25, 2024 11:30 AM AMBULATORY - MEDICINE [place] [facility] [facility] Jul 13, 2024 10:00 AM AMBULATORY - MEDICINE [place] [facility] [place] [facility] Aug 03, 2024 01:00 PM AMBULATORY - PSYCHIATRY [facility] [place] [facility] Aug 24, 2024 11:00 AM AMBULATORY - MEDICINE [place] [facility] [facility] Sep 07, 2024 11:30 AM AMBULATORY - MEDICINE [place] [facility] [facility] Vital Signs: All taken on the encounter date This section contains inpatient and outpatient Vital Signs collected on the date of the Encounter. Date/Time Temperature Pulse Blood Pressure Respiratory Rate SP02 Pain Height Weight Body Mass Index Source Apr 13, 2024 02:12 PM 97 63 118/66 19 95 [place] [facility] [place] [facility] Social History: Smoking Status (Most current) [...] place. Date/Time Current Smoking Status Comment [facility] Mar 06, 2024 09:00 AM VA-TOBACCO FORMER USER [place] [facility] [facility] Tobacco Use History This section includes a history of the smoking, or tobacco-related health factors, that were collected on or before the date of the Encounter. The data comes from the [place] facility where the Encounter took place. Date/Time Smoking Status/Tobac co Use Comment Facility Mar 06, 2024 09:00 AM VA-TOBACCO QUIT 15 YRS OR MORE [facility] [place] [facility] Mar 31, 2023 11:00 AM VA-TOBACCO FORMER USER [facility] [place] [facility] Mar 31, 2023 11:00 AM VA-TOBACCO QUIT 1 TO < 5 YRS [facility] [place] [facility] Mar 25, 2022 10:30 AM VA-TOBACCO NEVER USED [facility] [place] [facility] Mar 19, 2021 02:00 PM VA-TOBACCO FORMER USER [facility] [place] [facility] Mar 19, 2021 02:00 PM VA-TOBACCO QUIT < 1 YEAR [facility] [place] [facility] Sep 20, 2018 11:24 AM VA-TOBACCO USE DECLINED TO ANSWER [facility] [place] [facility] Oct 21, 2017 08:13 AM QUIT TOBACCO USE IN PAST YEAR [place] [facility] [place] [facility] Dec 30, 2016 08:28 AM QUIT TOBACCO USE 1-7 YEARS AGO [place] [facility] [place] [facility] Jun 04, 2016 08:43 AM QUIT TOBACCO USE 1-7 YEARS AGO [place] [facility] [place] [facility] May 17, 2015 08:45 AM QUIT TOBACCO USE 1-7 YEARS AGO quit 2 years ago. [place] [facility] [place] [facility] Jun 07, 2014 09:25 AM QUIT TOBACCO USE 1-7 YEARS AGO [place] [facility] [place] [facility] November 30, 2013 08:44 AM QUIT TOBACCO USE IN PAST YEAR [place] [facility] [place] [facility] May 22, 2013 10:10 AM QUIT TOBACCO USE [facility]ST [facility] [place] [facility] December 01, 2012 01:54 PM QUIT TOBACCO USE IN PAST YEAR [facility] [facility] Jun 07, 2012 08:16 AM V1-PT DECLINES TOBACCO CESSATION MEDS [facility] [place] [facility] Jun 07, 2012 08:16 AM V1-PT THINKING ABOUT QUIT TOBACCO USE [facility] [facility] Jan 05, 2012 09:00 AM CURRENT SMOKER intermittenly [facility] [place] [facility] Jan 05, 2012 09:00 AM V1-PT DECLINES REF TO TOBACCO CESS PR[facility] [place] [facility] Jan 05, 2012 09:00 AM V1-PT DECLINES TOBACCO CESSATION MEDS [facility] [place] [facility] Jan 05, 2012 09:00 AM V1-PT THINKING ABOUT QUIT TOBACCO USE [facility] [place] [facility] Feb 17, 2011 09:52 AM V1-PT DECLINES TOBACCO CESSATION MEDS [place] [facility] [facility] Feb 17, 2011 09:52 AM V1-PT THINKING ABOUT QUIT TOBACCO USE [place] [facility] [place] [facility] Aug 13, 2010 11:31 AM QUIT TOBACCO USE IN PAST YEAR [facility] [place] [facility] Feb 19, 2010 01:26 PM QUIT TOBACCO USE IN PAST YEAR [facility] Sep 13, 2009 11:04 AM QUIT TOBACCO USE IN PAST YEAR [facility] Feb 05, 2009 08:29 AM V1-PT DECLINES REF TO TOBACCO CESS PRGM [facility] Feb 05, 2009 08:29 AM V1-PT DECLINES TOBACCO CESSATION MEDS [facility] Feb 05, 2009 08:29 AM V1-PT THINKING ABOUT QUIT TOBACCO USE [facility] Aug 22, 2008 09:04 AM QUIT TOBACCO USE IN PAST YEAR [facility] Mar 12, 2008 10:40 AM V1-PT DECLINES REF TO TOBACCO CESS PRGM [facility] Mar 12, 2008 10:40 [...] STATUS: COMPLETED HISTORY OF PRESENT ILLNESS: REID SAMPLE, is a 64 yo WHITE FEMALE who [facility] [place] the [place] [facility]. multiple problems HPI. this vet had episode of CHF/hospitalized at [facility]-disch notes reviewed. she responded to diuretics, [...] she eats only 1500 calories per day. DEANNA PLANS TO SWITCH TO COMMUNITY PCP SHE [...] cardiac failure 11. AF- Atrial Fibrillation (SCT [id number]) 12. Drug abuse 13. Extreme obesity with alveolar hypoventilation 14. Impaired fasting glucose 15. Pulmonary hypertension 16. COPD - Chronic obstructive pulmonary disease 17. Polycythemia vera 18. Anxiety disorder 19. Edema 20. Osteoarthritis of knee 21. Opioid dependence (SNOMED CT 18641673) 22. Microscopic hematuria 23. Tobacco dependence, continuous (SNOMED CT 360095606) 24. Sleep apnea (SNOMED CT 03570438) 25. Varicose Veins 26. Hysterectomy 27. Hypertension (SNOMED CT 39840970) 28. Gastroesophageal Reflux Disorder 29. Inflammatory bowel [...] Sig: ACTIVE 0.5ML INTRAMUSCULARLY NOW 6) Non-VA [id number]/VILANTERO L25MCG ACTIVE 30D INH Si INHALATION BY [...] SOPHIA 2. vet prefers NOT to have [place] community cardio consult/see HPI for details 3. [...] of active outpatient prescriptions dispensed from this [place] (local) and dispensed from another [place] or Do[place] facility (remote) as well as [...] MD PHYSICIAN Signed: 04/13/2024 15:10 FAYE CASTILLO [place] [facility]
--- OUTSIDE RECORDS SUMMARY | 2024-07-25 11:39 | XMS_ITS ---
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 Organization [place] Address [address] [place] [id number] Care Team Providers Care Chief Human Resources Officer Name Role Phone ROMANA CASTILLO Primary [...] Patient's Relationship to Policy Garcia [facility] (MEDICAID) [facility]ID [facility] May 14, 2009 [id number] SAMPLE,ROCCO MOORE PATIENT [facility]ICAID [facility] May 14, 2009 [id number] SAMPLE,ROCCO MOORE PATIENT MEDICAID MEDICAID [facility] Jul 26, 2018 MEDICAI D [id number] SAMPLE,ROCCO MOORE PATIENT MEDICARE (WNR) MEDICARE (M) PART A November 24, 2015 PART A [id number] [phone] SAMPLE,ROCCO MOORE PATIENT MEDICARE (WNR) MEDICARE (M) PART B November 24, 2015 PART B [id number] SAMPLEROCCO PATIENT Selected Encounter This section includes the information on record at [place] for the Encounter. Date/Time Encounter Type Encounter Description Reason Pro vider Source May 03, 2024 04:21 PM Outpatient Encounter RESPIRATORY THERAPY IHE Encounter Template Text not used by [place] Plan of Treatment: Future Appointments (+ 6 [...] AMBULATORY - PSYCHIATRY [place] [facility] [place] [place] [facility] May 25, 2024 11:30 AM AMBULATORY - MEDICINE [place] [facility] [place] [facility] Jul 13, 2024 10:00 AM AMBULATORY MEDICINE [place] [facility] [place] [facility] Aug 03, 2024 01:00 PM AMBULATORY - PSYCHIATRY [facility] [place] [place] [facility] Aug 24, 2024 11:00 AM AMBULATORY - MEDICINE [facility] [place] [facility] Sep 07, 2024 11:30 AM AMBULATORY - MEDICINE [facility] [place] [facility] Lab Results: +/- 30 [...] Range Comment May 16, 2024 04:03 PM [facility] METHADONE SCREEN Specimen Type: URINE Comment: BRISSA test are qualitative, any L or H flags only indicate a [place] alert was sent. Ordering Provider: RONAN MADSEN Report Released Date/Time: May 16, 2024 01:45 PM Reporting [facility] [address] [facility] [address] Performing Lab: [facility] [address] [facility] [address] METHADONE SCREEN None detected(Nega tive) L Negative May 16, 2024 04:03 PM [facility] ALCOHOL, ETHYL URINE PANEL Specimen Type: [...] May 16, 2024 01:45 PM Reporting Lab: [address] [address] Performing Lab: [address] [address] ALCOHOL, ETHYL URINE NONE-DETECTED mg/dL NONE-DETEC DIRK, cutoff = 10 mg/dL PH, BRISSA 4.7 [pH] 4-10 CREATININE, BRISSA 76.90 mg/dL >20 SP.GRAVITY, BRISSA 1.015 1.00 3-1.02 0 May 16, 2024 04:03 PM [facility] AMPHETAMINES SCREEN PANEL Specimen Type: URINE [...] May 16, 2024 01:45 PM Reporting Lab: [address] [address] Performing Lab: [address] [address] AMPHETAMINES SCREEN NONE-DETECTED None-Detec dirk, Cutoff = 1000 ng/mL PH, BRISSA 4.7 [pH] 4-10 CREATININE, BRISSA 76.90 mg/dL >20 SP.GRAVITY, BRISSA 1.015 1.00 3-1.02 0 May 16, 2024 04:03 PM [facility] FENTANYL SCREEN PANEL Specimen Type: URINE [...] May 16, 2024 01:45 PM Reporting Lab: [address] [address] Performing Lab: [address] [address] FENTANYL SCREEN NONE-DETECTE D ng/mL Negative: Cutoff = 1.00 ng/mL PH, BRISSA 4.7 [pH] 4-10 CREATININE, BRISSA 76.33 mg/dL >20 SP.GRAVITY, BRISSA 1.015 1.00 3-1.02 0 May 16, 2024 04:03 PM [facility] BUPRENORPHINE SCREEN PANEL Specimen Type: URINE [...] May 16, 2024 01:45 PM Reporting Lab: [address] [address] Performing Lab: [address] [address] BUPRENORPHINE (URINE) POSITIVE HH None Detected, Cutoff = 10.0 ng/mL PH, BRISSA 4.7 [pH] 4-10 CREATININE, BRISSA 76.90 mg/dL >20 SP.GRAVITY, BRISSA 1.015 1.00 3-1.02 0 May 16, 2024 04:03 PM [facility] BENZODIAZEPINES SCREEN PANEL Specimen Type: URINE [...] May 16, 2024 01:45 PM Reporting Lab: [address] [address] Performing Lab: [address] [address] BENZODIAZEPINES SCREEN POSITIVE HH None-Detec dirk, Cutoff = 200 ng/mL PH, BRISSA 4.7 [pH] 4-10 CREATININE, BRISSA 76.90 mg/dL >20 SP.GRAVITY, BRISSA 1.015 1.00 3-1.02 0 May 16, 2024 04:03 PM [facility] COCAINE SCREEN PANEL Specimen Type: URINE [...] May 16, 2024 01:45 PM Reporting Lab: [address] [address] Performing Lab: [address] [address] COCAINE SCREEN NONE-DETECTED N one-Detec dirk,Cutoff = 300 ng/mL PH, BRISSA 4.7 [pH] 4-10 CREATININE, BRISSA 76.90 mg/dL >20 SP.GRAVITY, BRISSA 1.015 1.00 3-1.02 0 May 16, 2024 04:03 PM [facility] OPIATES SCREEN PANEL Specimen Type: URINE [...] May 16, 2024 01:45 PM Reporting Lab: [address] [address] Performing Lab: [address] [address] OPIATES SCREEN POSITIVE HH None- Detec dirk, Cutoff = 300 ng/mL PH, BRISSA 4.7 [pH] 4-10 CREATININE, BRISSA 76.90 mg/dL >20 SP.GRAVITY, BRISSA 1.015 1.00 3-1.02 0 May 16, 2024 04:03 PM [facility] OXYCODONE SCREEN PANEL Specimen Type: URINE [...] May 16, 2024 01:45 PM Reporting Lab: [address] [address] Performing Lab: [place] [facility] [address] OXYCODONE SCREEN POSITIVE HH Non e-Detec dirk, Cutoff = 100 ng/mL PH, BRISSA 4.7 [pH] 4-10 CREATININE, BRISSA 76.90 mg/dL >20 SP.GRAVITY, BRISSA 1.015 1.00 3-1.02 0 May 16, 2024 04:03 PM [facility] CANNABINOIDS SCREEN PANEL Specimen Type: URINE [...] May 16, 2024 01:45 PM Reporting Lab: [address] [address] Performing Lab: [address] [address] CANNABINOIDS SCREEN NONE-DETECTED None-Detec dirk,Cutoff = 50 [...] Current Smoking Status Comment [facility] it Mar 06, 2024 09:00 AM VA-TOBACCO QUIT 15 YRS OR MORE [facility] Tobacco Use History This section includes a history of the smoking, or tobacco-related health factors, that were collected on or before the date of the Encounter. The data comes from the [place] facility where the Encounter took place. Date/Time Smoking Status/Tobac co Use Comment [facility] Mar 06, 2024 09:00 AM VA-TOBACCO QUIT 15 YRS OR MORE [facility] [place] [facility] Mar 31, 2023 11:00 AM VA-TOBACCO FORMER USER [facility] [place] [facility] Mar 31, 2023 11:00 AM VA-TOBACCO QUIT 1 TO < 5 YRS [facility] [place] [facility] Mar 25, 2022 10:30 AM VA-TOBACCO NEVER USED [facility] [place] [facility] Mar 19, 2021 02:00 PM VA-TOBACCO FORMER USER [facility] [facility] Mar 19, 2021 02:00 PM VA-TOBACCO QUIT < 1 YEAR [facility] [place] [facility] Sep 20, 2018 11:24 AM VA-TOBACCO USE DECLINED TO ANSWER [facility] [place] [facility] Oct 21, 2017 08:13 AM QUIT TOBACCO USE IN PAST YEAR [facility] [place] [facility] Dec 30, 2016 08:28 AM QUIT TOBACCO USE 1-7 YEARS AGO [facility] [place] [facility] Jun 04, 2016 08:43 AM QUIT TOBACCO USE 1-7 YEARS AGO [facility] [place] [facility] May 17, 2015 08:45 AM QUIT TOBACCO USE 1-7 YEARS AGO quit 2 years ago. [facility] [facility] Jun 07, 2014 09:25 AM QUIT TOBACCO USE 1-7 YEARS AGO [facility] [place] [facility] November 30, 2013 08:44 AM QUIT TOBACCO USE IN PAST YEAR [facility] [place] [facility] May 22, 2013 10:10 AM QUIT TOBACCO USE IN PAST YEAR [facility] [place] [facility] December 01, 2012 01:54 PM QUIT TOBACCO USE IN PAST YEAR [facility] [place] [facility] Jun 07, 2012 08:16 AM V1-PT DECLINES TOBACCO CESSATION MEDS [facility] [place] [facility] Jun 07, 2012 08:16 AM V1-PT THINKING ABOUT QUIT TOBACCO USE [facility] [place] [facility] Jan 05, 2012 09:00 AM CURRENT SMOKER intermittenly [facility] [place] [facility] Jan 05, 2012 09:00 AM V1-PT DECLINES REF TO TOBACCO CESS PRGM [facility] [place] [facility] Jan 05, 2012 09:00 AM V1-PT DECLINES TOBACCO CESSATION MEDS [facility] [place] [facility] Jan 05, 2012 09:00 AM V1-PT THINKING ABOUT QUIT TOBACCO USE [facility] [facility] Feb 17, 2011 09:52 AM V1-PT DECLINES TOBACCO CESSATION MEDS [facility] [place] [facility] Feb 17, 2011 09:52 AM V1-PT THINKING ABOUT QUIT TOBACCO USE [facility] [place] [facility] Aug 13, 2010 11:31 AM QUIT TOBACCO USE IN PAST YEAR [facility] [facility] Feb 19, 2010 01:26 PM QUIT TOBACCO USE IN PAST YEAR [facility] [place] [facility] Sep 13, 2009 11:04 AM QUIT TOBACCO [facility] [place] [facility] Feb 05, 2009 08:29 AM V1-PT DECLINES RE[facility] TOBACCO [facility]ESS [facility] [place] [facility] Feb 05, 2009 08:29 AM V1-PT DECLINES TOBACCO CESSATION MEDS [facility] [place] [facility] Feb 05, 2009 08:29 AM V1-PT THINKING ABOUT QUIT TOBACCO USE [facility] [place] [facility] Aug 22, 2008 09:04 AM QUIT TOBACCO USE [facility]ST [facility] [place] [facility] Mar 12, 2008 10:40 AM V1-PT DECLINES REF TO TOBACCO CESS PRGM [facility] [place] [facility] Mar 12, 2008 10:40 AM V1-PT DECLINES TOBACCO CESSATION MEDS [facility] [place] [facility] Mar 12, 2008 10:40 AM V1-PT NOT INTERESTED IN QUIT TOBACCO USE [facility] [place] [facility] Mar 08, 2008 09:37 AM CURRENT SMOKER smokes one pack a day for about 10 years ago. [facility] [place] [facility] Encounter Notes: All associated [...] COMPLETED Patient Name: REID QUEZADA Patient SSN: [id number] Date and time of Appointment No show [...] 1 08/24/2024 11:00 CWM/NO/PACT 4 /es/ HARVEY HERNANDES AMSA Signed: 05/03/2024 16:22 HARVEY HERNANDES [facility]
--- OUTSIDE RECORDS SUMMARY | 2024-07-25 11:39 | XMS_ITS ---
Author Name [facility] [place] Address [address] [place] [address] Care Team Providers Care Supervisor Ditching Name Role Phone ROMANA CASTILLO Primary Care [...] Garcia [facility] (MEDICAID) MEDICAID [facility]AN [facility] May 14, 2009 [id number] SAMPLE,ROCCO MOORE PATIENT [facility]ICAID [facility] May 14, 2009 [id number] SAMPLE,ROCCO MOORE PATIENT MEDICAID MEDICAID [facility] Jul 26, 2018 MEDICAI D [id number] SAMPLE,ROCCO MOORE PATIENT MEDICARE (WNR) MEDICARE (M) PART A November 24, 2015 PART A [id number] SAMPLE,ROCCO MOORE PATIENT MEDICARE (WNR) MEDICARE (M) PART B November 24, 2015 PART B [id number] SAMPLE,ROCCO MOORE PATIENT Selected Encounter This [...] 2024 11:30 AM AMBULATORY - PSYCHIATRY [place] [facility] [place] [facility] May 25, 2024 11:30 AM AMBULATORY - MEDICINE [facility] [place] [facility] Jul 13, 2024 10:00 AM AMBULATORY - MEDICINE [facility] [place] [facility] Aug 03, 2024 01:00 PM [facility]BUL[facility] [place] [facility] Aug 24, 2024 11:00 AM AMBULATORY - MEDICINE [facility] [place] [facility] Sep 07, 2024 11:30 AM AMBULATORY - MEDICINE [facility] Lab Results: +/- 30 days [...] Range Comment May 16, 2024 04:03 PM [facility] METHADONE SCREEN Specimen Type: URINE Comment: BRISSA test are qualitative, any L or H flags only indicate a [facility] alert was sent. Ordering Provider: RONAN MADSEN Report Released Date/Time: May 16, 2024 01:45 PM Reporting Lab: [facility] [address] [address] Performing Lab: [facility] [address] [facility] [address] METHADONE SCREEN None detected(Nega tive) L Negative May 16, 2024 04:03 PM [facility] AMPHETAMINES SCREEN PANEL Specimen Type: URINE [...] May 16, 2024 01:45 PM Reporting Lab: [address] [address] Performing Lab: [address] [address] AMPHETAMINES SCREEN NONE-DETECTED None-Detec dirk, Cutoff = 1000 ng/mL PH, BRISSA 4.7 [pH] 4-10 CREATININE, BRISSA 76.90 mg/dL >20 SP.GRAVITY, BRISSA 1.015 1.00 3-1.02 0 May 16, 2024 04:03 PM [facility] FENTANYL SCREEN PANEL Specimen Type: URINE [...] May 16, 2024 01:45 PM Reporting Lab: [address] [address] Performing Lab: [address] [address] FENTANYL SCREEN NONE-DETECTE D ng/mL Negative: Cutoff = 1.00 ng/mL PH, BRISSA 4.7 [pH] 4-10 CREATININE, BRISSA 76.33 mg/dL >20 SP.GRAVITY, BRISSA 1.015 1.00 3-1.02 0 May 16, 2024 04:03 PM [facility] ALCOHOL, ETHYL URINE PANEL Specimen Type: [...] May 16, 2024 01:45 PM Reporting Lab: [address] [address] Performing Lab: [address] [address] ALCOHOL, ETHYL URINE NONE-DETECTED mg/dL NONE-DETEC DIRK, cutoff = 10 mg/dL PH, BRISSA 4.7 [pH] 4-10 CREATININE, BRISSA 76.90 mg/dL >20 SP.GRAVITY, BRISSA 1.015 1.00 3-1.02 0 May 16, 2024 04:03 PM [facility] CANNABINOIDS SCREEN PANEL Specimen Type: URINE [...] May 16, 2024 01:45 PM Reporting Lab: [address] [address] Performing Lab: [facility] [address] [address] CANNABINOIDS SCREEN NONE-DETECTED None-Detec dirk,Cutoff = 50 ng/mL PH, BRISSA 4.7 [pH] 4-10 CREATININE, BRISSA 76.90 mg/dL >20 SP.GRAVITY, BRISSA 1.015 1.00 3-1.02 0 May 16, 2024 04:03 PM [facility] BUPRENORPHINE SCREEN PANEL Specimen Type: URINE [...] May 16, 2024 01:45 PM Reporting Lab: [address] [address] Performing Lab: [address] [address] BUPRENORPHINE (URINE) POSITIVE HH None Detected, Cutoff = 10.0 ng/mL PH, BRISSA 4.7 [pH] 4-10 CREATININE, BRISSA 76.90 mg/dL >20 SP.GRAVITY, BRISSA 1.015 1.00 3-1.02 0 May 16, 2024 04:03 PM [facility] BENZODIAZEPINES SCREEN PANEL Specimen Type: URINE [...] May 16, 2024 01:45 PM Reporting Lab: [address] [address] Performing Lab: [address] [address] BENZODIAZEPINES SCREEN POSITIVE HH None-Detec dirk, Cutoff = 200 ng/mL PH, BRISSA 4.7 [pH] 4-10 CREATININE, BRISSA 76.90 mg/dL >20 SP.GRAVITY, BRISSA 1.015 1.00 3-1.02 0 May 16, 2024 04:03 PM [facility] COCAINE SCREEN PANEL Specimen Type: URINE [...] May 16, 2024 01:45 PM Reporting Lab: [address] [address] Performing Lab: [address] [address] COCAINE SCREEN NONE-DETECTED N one-Detec dirk,Cutoff = 300 ng/mL PH, BRISSA 4.7 [pH] 4-10 CREATININE, BRISSA 76.90 mg/dL >20 SP.GRAVITY, BRISSA 1.015 1.00 3-1.02 0 May 16, 2024 04:03 PM [facility] OPIATES SCREEN PANEL Specimen Type: URINE [...] May 16, 2024 01:45 PM Reporting Lab: [address] [address] Performing Lab: [address] [address] OPIATES SCREEN POSITIVE HH None- Detec dirk, Cutoff = 300 ng/mL PH, BRISSA 4.7 [pH] 4-10 CREATININE, BRISSA 76.90 mg/dL >20 SP.GRAVITY, BRISSA 1.015 1.00 3-1.02 0 May 16, 2024 04:03 PM [facility] OXYCODONE SCREEN PANEL Specimen Type: URINE [...] May 16, 2024 01:45 PM Reporting Lab: [address] [address] Performing Lab: [address] [address] OXYCODONE SCREEN POSITIVE HH Non e-Detec dirk, [...] 06, 2024 09:00 AM VA-TOBACCO FORMER USER [facility] Tobacco Use History This section includes a history of the smoking, or tobacco-related health factors, that were collected on or before the date of the Encounter. The data comes from the [place] facility where the Encounter took place. Date/Time Smoking Status/Tobac co Use Comment Facility Mar 06, 2024 09:00 AM VA-TOBACCO QUIT 15 YRS OR MORE [facility] [place] [facility] Mar 31, 2023 11:00 AM VA-TOBACCO FORMER USER [facility] [place] [facility] Mar 31, 2023 11:00 AM VA-TOBACCO QUIT 1 TO < 5 YRS [facility] [place] [facility] Mar 25, 2022 10:30 AM VA-TOBACCO NEVER USED [facility] [place] [facility] Mar 19, 2021 02:00 PM VA-TOBACCO FORMER USER [facility] [place] [facility] Mar 19, 2021 02:00 PM VA-TOBACCO QUIT < 1 YEAR [facility] [place] [facility] Sep 20, 2018 11:24 AM VA-TOBACCO USE DECLINED TO ANSWER [facility] [place] [facility] Oct 21, 2017 08:13 AM QUIT TOBACCO USE IN PAST YEAR [facility] [place] [facility] Dec 30, 2016 08:28 AM QUIT TOBACCO USE 1-7 YEARS AGO [facility] [place] [facility] Jun 04, 2016 08:43 AM QUIT TOBACCO USE 1-7 YEARS AGO [facility] [place] [facility] May 17, 2015 08:45 AM QUIT TOBACCO USE 1-7 YEARS AGO quit 2 years ago. [facility] [place] [facility] Jun 07, 2014 09:25 AM QUIT TOBACCO USE 1-7 YEARS AGO [facility] [place] [facility] November 30, 2013 08:44 AM QUIT TOBACCO USE IN PAST YEAR [facility] [place] [facility] May 22, 2013 10:10 AM QUIT TOBACCO USE IN PAST YEAR [facility] [place] [facility] December 01, 2012 01:54 PM QUIT TOBACCO USE IN PAST YEAR [facility] [place] [facility] Jun 07, 2012 08:16 AM V1-PT DECLINES TOBACCO CESSATION MEDS [facility] [place] [facility] Jun 07, 2012 08:16 AM V1-PT THINKING ABOUT QUIT TOBACCO USE [facility] [place] [facility] Jan 05, 2012 09:00 AM CURRENT SMOKER intermittenly [place] [facility] [facility] Jan 05, 2012 09:00 AM V1-PT DECLINES REF TO TOBACCO CESS PRGM [facility] [place] [facility] Jan 05, 2012 09:00 AM V1-PT DECLINES TOBACCO CESSATION MEDS [facility] [place] [facility] Jan 05, 2012 09:00 AM V1-PT THINKING ABOUT QUIT TOBACCO USE [facility] [place] [facility] Feb 17, 2011 09:52 AM V1-PT DECLINES TOBACCO CESSATION MEDS [facility] [place] [facility] Feb 17, 2011 09:52 AM V1-PT THINKING ABOUT QUIT TOBACCO USE [facility] [place] [facility] Aug 13, 2010 11:31 AM QUIT TOBACCO USE IN PAST YEAR [facility] [place] [facility] Feb 19, 2010 01:26 PM QUIT TOBACCO USE IN PAST YEAR [facility] [facility] Sep 13, 2009 11:04 AM QUIT TOBACCO USE IN PAST YEAR [facility] [place] [facility] Feb 05, 2009 08:29 AM V1-PT DECLINES REF TO TOBACCO CESS PRGM [facility] [place] [facility] Feb 05, 2009 08:29 AM V1-PT DECLINES TOBACCO CESSATION MEDS [facility] [facility] Feb 05, 2009 08:29 AM V1-PT THINKING ABOUT QUIT TOBACCO USE [facility] [place] [facility] Aug 22, 2008 09:04 AM QUIT TOBACCO USE IN PAST YEAR [facility] [place] [facility] Mar 12, 2008 10:40 AM V1-PT DECLINES REF TO TOBACCO CESS PRGM [facility] [facility] Mar 12, 2008 10:40 AM V1-PT DECLINES TOBACCO CESSATION MEDS [facility] [place] [facility] Mar 12, 2008 10:40 AM V1-PT NOT INTERESTED IN QUIT TOBACCO USE [facility] [place] [facility] Mar 08, 2008 09:37 AM CURRENT SMOKER smokes one pack a day for about 10 years ago. [facility] [place] [facility] Encounter Notes: All associated encounter [...] Patient Name: REID QUEZADA Patient Primary Phone: [phone] Patient Primary Address: [address] [place] [id number] Patient : 1960 Patient Age: 64 Caller/Recipient Relation to Patient: Caregiver Caller Name: Akosua, RN with [facility] Administrative Administrative Note Reason: Home Health / [facility] Administrative Note Comments: P[place]I [place] with [facility] called requesting a call back to do a medication reconciliation. She can be reached back at [phone]. IMPORTANT: This note was created by [facility] staff. Please do not alert the staff member by adding them as a signer for future communications. Alerts are not monitored by this user. /divya/ STEPHANIE MAY [email or web address] Signed: 05/03/2024 16:21 Receipt Acknowledged By: 05/05/2024 13:03 /divya/ AKOSUA GREEN, LULI, RN, CNL PRIMARY CARE TEAM NURSE 05/05/2024 11:50 /isabella Hooker RN Primary Care Staff Nurse 05/05/2024 ADDENDUM STATUS: COMPLETED Msg left for /isabella Hooker RN Primary Care Staff Nurse Signed: 05/05/2024 11:50 STEPHANIE MAY [facility]
--- OUTSIDE RECORDS SUMMARY | 2024-07-25 11:39 | XMS_ITS | Encounter Summary ---
Author Name [facility] [place] Address [address] [place] [id number] Care Team Providers Care Electric Motorman Name Role Phone ROMANA CASTILLO Primary Care [...] Policy Garcia [facility] (MEDICAID) [facility] May 14, 2009 [id number] SAMPLE,ROCCO MOOER PATIENT [facility] MEDICAID [facility] HUMAN [facility] May 14, 2009 [id number] SAMPLE,ROCCO MOORE PATIENT MEDICAID MEDICAID [facility] Jul 26, 2018 MEDICAI D [id number] SAMPLE,ROCCO MOORE PATIENT MEDICARE (WNR) MEDICARE (M) PART A November 24, 2015 PART A [id number] SAMPLE,ROCCO MOORE PATIENT MEDICARE (WNR) MEDICARE (M) PART B November 24, 2015 PART B [id number] ROCCO QUEZADA PATIENT Selected Encounter This section includes the information on record at [place] for the Encounter. Date/Time Encounter Type Encounter Description Reason Pro vider Source Apr 03, 2024 12:00 AM Outpatient Encounter EVENT (HISTORICAL) IHE Encounter Template Text not used by [place] Plan of Treatment: Future Appointments (+ 6 months) and Future Tests (+/- 45 days) The Plan of Treatment section includes future care activities for the patient from all [place] treatmentfacilities. This section includes future appointments and future orders which are active, pending or scheduled. Future Appointments This section includes appointments that were scheduled to occur 6 months from the date of the Encounter, up to a maximum of 20 appointments. The data comes from all [place] treatment facilities. Appointment Date/Time Appointment Type Appointme nt Facility Name Apr 13, 2024 11:00 AM AMBULATORY - PS[facility]CHIATRY [facility] [place] [facility] Apr 13, 2024 02:00 PM AMBULATORY - MEDICINE [facility] [place] [facility] Apr 13, 2024 03:00 PM AMBULATORY - MEDICINE [facility] [facility] May 02, 2024 11:00 AM AMBULATORY - MEDICINE [facility] [facility] May 15, 2024 11:30 AM AMBULATORY - PSYCHIATRY [facility] [place] [facility] May 25, 2024 11:30 AM AMBULATORY - MEDICINE [facility] [place] [facility] Jul 13, 2024 10:00 AM AMBULATORY - MEDICINE [facility] [facility] Aug 03, 2024 01:00 PM AMBULATORY - PSYCHIATRY [facility] [place] [facility] Aug 24, 2024 11:00 AM AMBULATORY - MEDICINE [facility] [place] [facility] Sep 07, 2024 11:30 AM AMBULATORY - MEDICINE [facility] [place] [facility] Lab Results: +/- 30 days of the encounter This section includes the Chemistry and Hematology Lab Results on record with [place] for the patient. Radiology Reports and Pathology Reports are provided separately, in subsequent sections. Lab Results This section contains the Chemistry/Hematology Results that were resulted 30 days before or 30 daysafter the date of the Encounter. Date/Time Source Result Type Result - Unit Interpretation Reference Range Comment Mar 06, 2024 09:56 AM [facility] [place] [facility] IRON & TIBC PANEL Specimen Type: SERUM No comment entered. Ordering Provider: Sherrie CASTILLO Report Released Date/Time: Mar 06, 2024 09:36 AM Reporting Lab: [address] [address] Performing Lab: [address] [address] TIBC 364 ug/dL 204-475 IRON 36 ug/dL L 40-160 Transferrin Saturation 9.9 L 20.0-50.0 Mar 06, 2024 09:56 AM [facility] VITAMIN D (25-OH) Specimen Type: SERUM No comment entered. Ordering Provider: Sherrie CASTILLO Report Released Date/Time: Mar 06, 2024 09:36 AM Reporting Lab: [address] [address] Performing Lab: [address] [address] VITAMIN D (25-OH) 20 ng/mL 20-50 Mar 06, 2024 09:56 AM [facility] FERRITIN Specimen Type: SERUM No comment entered. Ordering Provider: Sherrie CASTILLO Report Released Date/Time: Mar 06, 2024 09:36 AM Reporting Lab: [address] [address] Performing Lab: [address] [address] FERRITIN 52 ng/mL 10-200 Mar 06, 2024 09:56 AM [facility] HEMOGLOBIN A1C PANEL Specimen Type: BLOOD [...] Mar 06, 2024 09:36 AM Reporting Lab: [address] [address] [facility]: [facility] [address] [address] HEMOGLOBIN A1C 5.4 4.0-5.6 Mar 06, 2024 09:56 AM [facility] MICROALBUMIN CREATININE RATIO PANEL Specimen Type: URINE No comment entered. Ordering Provider: Sherrie CASTILLO Report Released Date/Time: Mar 06, 2024 09:36 AM Reporting Lab: [address] [address] Performing Lab: [address] [address] MICROALBUMIN/C REATININE RATIO 251.1 mg/g H 0-29.9 MICROALBUMIN,Q UANTITATIVE 11.2 mg/dL RR UNAVAIL CREATININE URINE 44.60 mg/dL Mar 06, 2024 09:56 AM [facility] BASIC METABOLIC PANEL (non-fasting) Specimen Type: SERUM No comment entered. Ordering Provider: Sherrie CASTILLO Report Released Date/Time: Mar 06, 2024 09:36 AM Reporting Lab: [address] [address] Performing Lab: [address] [address] UREA NITROGEN 28 mg/dL H 7-25 GLUCOSE 130 mg/dL H 65-100 SODIUM 142 mmol/L 135-145 POTASSIUM 4.8 mmol/L 3.5-5.0 CHLORIDE 97 mmol/L L 100-110 CO2 33 meq/L H 20-30 CREATININE, Serum 1.00 mg/dL 0.50-1.40 eGFR(CKD-EPI 2020) 63 mL/min >60 Mar 06, 2024 09:56 AM [facility] CBC AND DIFF (AUTO) Specimen Type: BLOOD No comment entered. Ordering Provider: Sherrie CASTILLO Report Released Date/Time: Mar 06, 2024 09:36 AM Reporting Lab: [facility] [address] [facility] [address] Performing [facility]: [facility] [address] [facility] [address] WBC 12.33 10*3/uL H 4.50-11.00 RBC 3.92 [...] and tobacco- related health factors from the [place] facility where the Encounter took place. Current Smoking Status This section includes the most current smoking, or tobacco-related health factor, from the [place] facility where the Encounter took place. Date/Time Current Smoking Status Comment Facil ity Mar 06, 2024 09:00 AM VA-TOBACCO QUIT 15 YRS OR MORE [facility] Tobacco Use History This section includes a history of the smoking, or tobacco-related health factors, that were collected on or before the date of the Encounter. The data comes from the [place] facility where the Encounter took place. Date/Time Smoking Status/Tobac co Use Comment Facility Mar 06, 2024 09:00 AM VA-TOBACCO QUIT 15 YRS OR MORE [facility] [place] [facility] Mar 31, 2023 11:00 AM VA-TOBACCO FORMER USER [facility] [place] [facility] Mar 31, 2023 11:00 AM VA-TOBACCO QUIT 1 TO < 5 YRS [facility] [place] [facility] Mar 25, 2022 10:30 AM VA-TOBACCO NEVER USED [facility] [place] [facility] Mar 19, 2021 02:00 PM VA-TOBACCO FORMER USER [facility] [place] [facility] Mar 19, 2021 02:00 PM VA-TOBACCO QUIT < 1 YEAR [facility] [place] [facility] Sep 20, 2018 11:24 AM VA-TOBACCO USE DECLINED TO ANSWER [facility] [place] [facility] Oct 21, 2017 08:13 AM QUIT TOBACCO USE IN PAST YEAR [facility] [place] [facility] Dec 30, 2016 08:28 AM QUIT TOBACCO USE 1-7 YEARS AGO [facility] [place] [facility] Jun 04, 2016 08:43 AM QUIT TOBACCO USE 1-7 YEARS AGO [facility] [place] [facility] May 17, 2015 08:45 AM QUIT TOBACCO USE 1-7 YEARS AGO quit 2 years ago. [facility] [place] [facility] Jun 07, 2014 09:25 AM QUIT TOBACCO USE 1-7 YEARS AGO [facility] [place] [facility] November 30, 2013 08:44 AM QUIT TOBACCO USE IN PAST YEAR [facility] [place] [facility] May 22, 2013 10:10 AM QUIT TOBACCO USE IN PAST YEAR [facility] [place] [facility] December 01, 2012 01:54 PM QUIT TOBACCO USE IN PAST YEAR [facility] [place] [facility] Jun 07, 2012 [...] PRGM [facility] [place] [facility] Jan [...] USE [facility] [place] [facility] Aug 13, 2010 11:31 AM QUIT TOBACCO USE IN PAST YEAR [facility] [place] [facility] Feb 19, 2010 01:26 PM QUIT TOBACCO USE IN PAST YEAR [facility] [place] [facility] Sep 13, 2009 11:04 AM QUIT TOBACCO USE IN PAST YEAR [facility] [place] [facility] Feb 05, 2009 08:29 AM V1-PT DECLINES REF TO TOBACCO CESS [facility] [place] [facility] Feb 05, 2009 08:29 AM V1-PT DECLINES TOBACCO CESSATION MEDS [facility] [place] [facility] Feb 05, 2009 08:29 AM V1-PT THINKING ABOUT QUIT TOBACCO USE [facility] [place] [facility] Aug 22, 2008 09:04 AM QUIT TOBACCO USE IN PAST YEAR [facility] [place] [facility] Mar 12, [...] day for about 10 years ago. [facility] Encounter Notes: All associated encounter notes [...] REQUIRED Electronically Filed: 05/04/2024 by: MERCEDES DALY Drapery Cutter MERCEDES DALY [facility]
--- OUTSIDE RECORDS SUMMARY | 2024-07-25 11:40 | XMS_ITS ---
Author Name [facility] [place] Address [address] [place] [address] Care Team Providers Care Stick Feeder Name Role Phone ROMANA CASTILLO Primary [...] Garcia's Name Patient's Relationship to Policy Garcia [facility] (MEDICAID) [facility] May 14, 2009 [id number] SAMPLE,ROCCO MOORE PATIENT [facility] MEDICAID [facility] May 14, 2009 [id number] SAMPLE,ROCCO MOORE PATIENT MEDICAID MEDICAID [facility] Jul 26, 2018 MEDICAI D [id number] SAMPLE,ROCCO MOORE PATIENT MEDICARE (WNR) MEDICARE (M) PART A November 24, 2015 PART A [id number] SAMPLE,ROCCO MOORE PATIENT MEDICARE (WNR) MEDICARE (M) PART B November 24, 2015 PART B [id number] SAMPLE,ROCCO MOORE PATIENT Selected Encounter This [...] PRIMARY Anxiety disorder, unspecified BAYRON SCOTT MD [facility] May 15, 2024 11:54 AM SECONDARY Insomnia, unspecified BAYRON SCOTT MD [facility] Plan of Treatment: Future Appointments (+ 6 months) and Future Tests (+/- 45 days) The Plan of Treatment section includes future care activities for the [place] [facility] [place] [facility] This section includes future appointments and future [...] 25, 2024 11:30 AM AMBULATORY - MEDICINE [facility] Jul 13, 2024 10:00 AM AMBULATORY - MEDICINE [facility] [place] [facility] Aug 03, 2024 01:00 PM [facility] [place] [facility] Aug 24, 2024 11:00 AM AMBULATORY - MEDICINE [facility] [place] [facility] Sep 07, 2024 11:30 AM [facility] Lab Results: +/- 30 days of the [...] Range Comment May 16, 2024 04:03 PM [facility] METHADONE SCREEN Specimen Type: URINE Comment: BRISSA test are qualitative, any L or H flags only indicate a VA alert was sent. Ordering Provider: RONAN MADSEN Report Released Date/Time: May 16, 2024 01:45 PM Reporting Lab: [address] [address] Performing Lab: [facility] [address] [facility] [address] METHADONE SCREEN None detected(Nega tive) L Negative May 16, 2024 04:03 PM [facility] ALCOHOL, ETHYL URINE PANEL Specimen Type: [...] May 16, 2024 01:45 PM Reporting Lab: [address] [address] Performing Lab: [address] [address] ALCOHOL, ETHYL URINE NONE-DETECTED mg/dL NONE-DETEC DIRK, cutoff = 10 mg/dL PH, BRISSA 4.7 [pH] 4-10 CREATININE, BRISSA 76.90 mg/dL >20 SP.GRAVITY, BRISSA 1.015 1.00 3-1.02 0 May 16, 2024 04:03 PM [facility] AMPHETAMINES SCREEN PANEL Specimen Type: URINE [...] May 16, 2024 01:45 PM Reporting Lab: [address] [address] Performing Lab: [address] [address] AMPHETAMINES SCREEN NONE-DETECTED None-Detec dirk, Cutoff = 1000 ng/mL PH, BRISSA 4.7 [pH] 4-10 CREATININE, BRISSA 76.90 mg/dL >20 SP.GRAVITY, BRISSA 1.015 1.00 3-1.02 0 May 16, 2024 04:03 PM [facility] FENTANYL SCREEN PANEL Specimen Type: URINE [...] May 16, 2024 01:45 PM Reporting Lab: [address] [address] Performing Lab: [address] [address] FENTANYL SCREEN NONE-DETECTE D ng/mL Negative: Cutoff = 1.00 ng/mL PH, BRISSA 4.7 [pH] 4-10 CREATININE, BRISSA 76.33 mg/dL >20 SP.GRAVITY, BRISSA 1.015 1.00 3-1.02 0 May 16, 2024 04:03 PM [facility] BENZODIAZEPINES SCREEN PANEL Specimen Type: URINE [...] May 16, 2024 01:45 PM Reporting Lab: [address] [address] Performing Lab: [address] [address] BENZODIAZEPINES SCREEN POSITIVE HH None-Detec dirk, Cutoff = 200 ng/mL PH, BRISSA 4.7 [pH] 4-10 CREATININE, BRISSA 76.90 mg/dL >20 SP.GRAVITY, BRISSA 1.015 1.00 3-1.02 0 May 16, 2024 04:03 PM [facility] BUPRENORPHINE SCREEN PANEL Specimen Type: URINE [...] May 16, 2024 01:45 PM Reporting Lab: [address] [address] Performing Lab: [address] [address] BUPRENORPHINE (URINE) POSITIVE HH None Detected, Cutoff = 10.0 ng/mL PH, BRISSA 4.7 [pH] 4-10 CREATININE, BRISSA 76.90 mg/dL >20 SP.GRAVITY, BRISSA 1.015 1.00 3-1.02 0 May 16, 2024 04:03 PM [facility] CANNABINOIDS SCREEN PANEL Specimen Type: URINE [...] May 16, 2024 01:45 PM Reporting Lab: [address] [address] Performing Lab: [address] [address] CANNABINOIDS SCREEN NONE-DETECTED None-Detec dirk,Cutoff = 50 ng/mL PH, BRISSA 4.7 [pH] 4-10 CREATININE, BRISSA 76.90 mg/dL >20 SP.GRAVITY, BRISSA 1.015 1.00 3-1.02 0 May 16, 2024 04:03 PM [facility] COCAINE SCREEN PANEL Specimen Type: URINE [...] May 16, 2024 01:45 PM Reporting Lab: [address] [address] Performing Lab: [address] [address] COCAINE SCREEN NONE-DETECTED N one-Detec dirk,Cutoff = 300 ng/mL PH, BRISSA 4.7 [pH] 4-10 CREATININE, BRISSA 76.90 mg/dL >20 SP.GRAVITY, BRISSA 1.015 1.00 3-1.02 0 May 16, 2024 04:03 PM [facility] OPIATES SCREEN PANEL Specimen Type: URINE [...] May 16, 2024 01:45 PM Reporting Lab: [address] [address] Performing Lab: [address] [address] OPIATES SCREEN POSITIVE HH None- Detec dirk, Cutoff = 300 ng/mL PH, BRISSA 4.7 [pH] 4-10 CREATININE, BRISSA 76.90 mg/dL >20 SP.GRAVITY, BRISSA 1.015 1.00 3-1.02 0 May 16, 2024 04:03 PM [facility] OXYCODONE SCREEN PANEL Specimen Type: URINE [...] May 16, 2024 01:45 PM Reporting Lab: [address] [address] Performing Lab: [address] [address] OXYCODONE SCREEN POSITIVE HH Non e-Detec dirk, [...] AM VA-TOBACCO QUIT 15 YRS OR MORE [facility] [place] [facility] Tobacco Use History This section includes a history of the smoking, or tobacco-related health factors, that were collected on or before the date of the Encounter. The data comes from the [place] facility where the Encounter took place. Date/Time Smoking Status/Tobac co Use Comment Facility Mar 06, 2024 09:00 AM VA-TOBACCO QUIT 15 YRS OR MORE [place] [facility] [facility] Mar 31, 2023 11:00 AM VA-TOBACCO FORMER USER [place] [facility] [facility] Mar 31, 2023 11:00 AM VA-TOBACCO QUIT 1 TO < 5 YRS [place] [facility] [facility] Mar 25, 2022 10:30 AM VA-TOBACCO NEVER USED [place] [facility] Mar 19, 2021 02:00 PM VA-TOBACCO FORMER USER [place] [facility] [facility] Mar 19, 2021 02:00 PM VA-TOBACCO QUIT < 1 YEAR [place] [facility] Sep 20, 2018 11:24 AM VA-TOBACCO USE DECLINED TO ANSWER [place] [facility] [facility] Oct 21, 2017 08:13 AM QUIT TOBACCO USE IN PAST YEAR [place] [facility] Dec 30, 2016 08:28 AM QUIT TOBACCO USE 1-7 YEARS AGO [place] [facility] [facility] Jun 04, 2016 08:43 AM QUIT TOBACCO USE 1-7 YEARS AGO [place] [facility] [facility] May 17, 2015 08:45 AM QUIT TOBACCO USE 1-7 YEARS AGO quit 2 years ago. [place] [facility] [facility] Jun 07, 2014 09:25 AM QUIT TOBACCO USE 1-7 YEARS AGO [place] [facility] [facility] November 30, 2013 08:44 AM QUIT TOBACCO USE IN PAST YEAR [place] [facility] May 22, 2013 10:10 AM QUIT TOBACCO USE IN PAST YEAR [place] [facility] [place] [facility] [...] CURRENT SMOKER intermittenly [facility] [facility] [...] AM V1-PT DECLINES [facility] [place] [facility] Feb 17, 2011 09:52 AM V1-PT THINKING ABOUT QUIT TOBACCO USE [facility] [place] [facility] Aug 13, 2010 11:31 AM QUIT TOBACCO USE IN PAST YEAR [facility] [place] [facility] Feb 19, 2010 01:26 PM QUIT TOBACCO USE IN PAST YEAR [facility] [place] [facility] Sep 13, 2009 11:04 AM QUIT TOBACCO USE [facility]ST [facility]AR [facility] [place] [facility] Feb 05, 2009 08:29 AM V1-PT DECLINES REF TO TOBACCO CESS PRGM [facility] [place] [facility] Feb 05, 2009 08:29 AM V1-PT DECLINES TOBACCO CESSATION MEDS [facility] [place] [facility] Feb 05, 2009 08:29 AM V1-PT THINKING ABOUT QUIT TOBACCO USE [place] [facility] Aug 22, 2008 09:04 AM QUIT TOBACCO USE IN PAST YEAR [place] [facility] [place] [facility] Mar 12, 2008 10:40 AM V1-PT DECLINES REF TO TOBACCO CESS PRGM [facility] [place] [facility] Mar 12, 2008 10:40 AM V1-PT DECLINES TOBACCO CESSATION MEDS [facility] [place] [facility] Mar 12, 2008 10:40 AM V1-PT NOT INTERESTED IN QUIT TOBACCO USE [facility] Mar 08, 2008 09:37 AM CURRENT SMOKER smokes one pack a day for about 10 years ago. [facility] Encounter Notes: All associated encounter notes This section contains the clinical notes associated to the Encounter. Date/Time Encounter Note(s) Provider Source May 15, 2024 11:53 AM ACCOUNTING OF DISCLOSURES NOTE: LOCAL TITLE: STATE PRESCRIPTION DRUG MONITORING PROGRAM STANDARD TITLE: ACCOUNTING OF DISCLOSURES NOTE DATE OF NOTE: MAY 15, 2024@11:53 ENTRY DATE: MAY 15, 2024@11:53 AUTHOR: MATEO SCOTT COSIGNER: URGENCY: STATUS: COMPLETED This PDMP query was submitted by Mateo Scott MD, MD. The clinical justification for this PDMP query is to review controlled substances prescribed outside of the [place], and any additional information that may become available, as an important component of standard clinical care, and in accordance with [facility] policy. Patient information was shared with the PDMP [place]. No prescription(s) for controlled substances outside the [place] were found in the last 90 days. /divya/ MATEO SCOTT JR, MD STAFF PSYCHIATRIST Signed: 05/15/2024 11:53 MATEO SCOTT MD [facility] May 15, 2024 10:29 AM PSYCHIATRY [...] DIPHTHERIA TOXOID 0.5ML INTRAMUSCULARLY NOW 6) Non-VA [id number]/VILANTERO L25MCG 30D INH 1 INHALATION BY MOUTH ONCE DAILY REID QUEZADA is a 64 yo, female who was scheduled [facility] and unable to connect as she is not receiving her emails or link. Appointment change to telephone. Two identifiers were used. CC: I was on my way to an AA meeting at [facility] (in her scooter) and I lost my [...] get the clonazepam and temazepam from her senior software architect and he retired. Umair states she has been on the same dose of clonazepam and temazepam for years and it worked . Clonazepam was recommended by her senior software architect and also stated the clonazepam. No complaints, no cravings, and no adverse side effects from current medications were reported, no, none that I know of . Mood is stable, good. Sleep and appetite are both, great. Discussed continuation of present medications as above. 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
--- OUTSIDE RECORDS SUMMARY | 2024-07-25 11:40 | XMS_ITS | Encounter Summary ---
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 Organization [place] Address [address] [place] [id number] Care Team Providers Care Manufacturing Development Engineer Name Role Phone ROMANA CASTILLO Primary [...] Name Patient's Relationship to Policy Garcia [facility] (MEDICAID) [facility]ICAID [facility] May 14, 2009 [id number] SAMPLE,ROCCO MOORE PATIENT [facility] MEDICAID [facility] May 14, 2009 [id number] SAMPLE,ROCCO MOORE PATIENT MEDICAID MEDICAID [facility] Jul 26, 2018 MEDICAI D [id number] SAMPLE,ROCCO MOORE PATIENT MEDICARE (WNR) MEDICARE (M) PART A November 24, 2015 PART A [id number] [phone] [id number] SAMPLE,ROCCO MOORE PATIENT MEDICARE (WNR) MEDICARE (M) PART B November 24, 2015 PART B [id number] SAMPLERO[facility]O PATIENT Selected Encounter This section [...] AMBULATORY - PSYCHIATRY [place] [facility] [place] [facility] May 25, 2024 11:30 AM AMBULATORY - MEDICINE [place] C [facility]TRL [place] [facility] Jul 13, 2024 10:00 AM AMBULATORY - MEDICINE [place] C [facility]L [place] [facility] Aug 03, 2024 01:00 PM AMBULATORY - PSYCHIATRY [place] [facility] [place] [facility] Aug 24, 2024 11:00 AM AMBULATORY - MEDICINE [facility]L [place] [facility] Sep 07, 2024 11:30 AM AMBULATORY - MEDICINE [facility]L [place] [facility] Lab Results: +/- 30 days of the encounter This section includes the Chemistry and Hematology Lab Results on record with [place] for the patient. Radiology Reports and Pathology Reports are provided separately, in subsequent sections. Lab Results This section contains the Chemistry/Hematology Results that were resulted 30 days before or 30 daysafter the date of the Encounter. Date/Time Source Result Type Result - Unit Interpretation Reference Range Comment May 16, 2024 04:03 PM [facility] [place] [facility] METHADONE SCREEN Specimen Type: URINE Comment: BRISSA test are qualitative, any L or H flags only indicate a VA alert was sent. Ordering Provider: RONAN MADSEN Report Released Date/Time: May 16, 2024 01:45 PM Reporting Lab: [facility] [address] [facility] [address] Performing Lab: [facility] [address] [facility] [address] METHADONE SCREEN None detected(Nega tive) L Negative May 16, 2024 04:03 PM [facility] AMPHETAMINES SCREEN PANEL Specimen Type: URINE [...] May 16, 2024 01:45 PM Reporting Lab: [address] [address] Performing Lab: [address] [address] AMPHETAMINES SCREEN NONE-DETECTED None-Detec dirk, Cutoff = 1000 ng/mL PH, BRISSA 4.7 [pH] 4-10 CREATININE, BRISSA 76.90 mg/dL >20 SP.GRAVITY, BRISSA 1.015 1.00 3-1.02 0 May 16, 2024 04:03 PM [facility] FENTANYL SCREEN PANEL Specimen Type: URINE [...] May 16, 2024 01:45 PM Reporting Lab: [address] [address] Performing Lab: [address] [address] FENTANYL SCREEN NONE-DETECTE D ng/mL Negative: Cutoff = 1.00 ng/mL PH, BRISSA 4.7 [pH] 4-10 CREATININE, BRISSA 76.33 mg/dL >20 SP.GRAVITY, BRISSA 1.015 1.00 3-1.02 0 May 16, 2024 04:03 PM [facility] ALCOHOL, ETHYL URINE PANEL Specimen Type: [...] May 16, 2024 01:45 PM Reporting Lab: [address] [address] Performing Lab: [address] [address] ALCOHOL, ETHYL URINE NONE-DETECTED mg/dL NONE-DETEC DIRK, cutoff = 10 mg/dL PH, BRISSA 4.7 [pH] 4-10 CREATININE, BIRSSA 76.90 mg/dL >20 SP.GRAVITY, BRISSA 1.015 1.00 3-1.02 0 May 16, 2024 04:03 PM [facility] CANNABINOIDS SCREEN PANEL Specimen Type: URINE [...] May 16, 2024 01:45 PM Reporting Lab: [address] [address] Performing Lab: [address] [address] CANNABINOIDS SCREEN NONE-DETECTED None-Detec dirk,Cutoff = 50 ng/mL PH, BRISSA 4.7 [pH] 4-10 CREATININE, BRISSA 76.90 mg/dL >20 SP.GRAVITY, BRISSA 1.015 1.00 3-1.02 0 May 16, 2024 04:03 PM [facility] BUPRENORPHINE SCREEN PANEL Specimen Type: URINE [...] May 16, 2024 01:45 PM Reporting Lab: [address] [address] Performing Lab: [address] [address] BUPRENORPHINE (URINE) POSITIVE HH None Detected, Cutoff = 10.0 ng/mL PH, BRISSA 4.7 [pH] 4-10 CREATININE, BRISSA 76.90 mg/dL >20 SP.GRAVITY, BRISSA 1.015 1.00 3-1.02 0 May 16, 2024 04:03 PM [facility] BENZODIAZEPINES SCREEN PANEL Specimen Type: URINE [...] 11 may have been adulterated. Ordering Provider: RONNA MADSEN Report Released Date/Time: May 16, 2024 01:45 PM Reporting Lab: [address] [address] Performing Lab: [place] [address] BENZODIAZEPINES SCREEN POSITIVE HH None-Detec dirk, Cutoff = 200 ng/mL PH, BRISSA 4.7 [pH] 4-10 CREATININE, BRISSA 76.90 mg/dL >20 SP.GRAVITY, BRISSA 1.015 1.00 3-1.02 0 May 16, 2024 04:03 PM [facility] COCAINE SCREEN PANEL Specimen Type: URINE [...] May 16, 2024 01:45 PM Reporting Lab: [address] [address] Performing Lab: [address] [address] COCAINE SCREEN NONE-DETECTED N one-Detec dirk,Cutoff = 300 ng/mL PH, BRISSA 4.7 [pH] 4-10 CREATININE, BRISSA 76.90 mg/dL >20 SP.GRAVITY, BRISSA 1.015 1.00 3-1.02 0 May 16, 2024 04:03 PM [facility] OPIATES SCREEN PANEL Specimen Type: URINE [...] May 16, 2024 01:45 PM Reporting Lab: [address] [address] Performing Lab: [facility] [address] [address] OPIATES SCREEN POSITIVE HH None- Detec dirk, Cutoff = 300 ng/mL PH, BRISSA 4.7 [pH] 4-10 CREATININE, BRISSA 76.90 mg/dL >20 SP.GRAVITY, BRISSA 1.015 1.00 3-1.02 0 May 16, 2024 04:03 PM [facility] OXYCODONE SCREEN PANEL Specimen Type: URINE [...] May 16, 2024 01:45 PM Reporting Lab: [address] [address] Performing Lab: [address] [address] OXYCODONE SCREEN POSITIVE HH Non e-Detec dirk, [...] 06, 2024 09:00 AM VA-TOBACCO FORMER USER [facility] Tobacco Use History This section includes a history of the smoking, or tobacco-related health factors, that were collected on or before the date of the Encounter. The data comes from the [place] facility where the Encounter took place. Date/Time Smoking Status/Tobac co Use Comment Facility Mar 06, 2024 09:00 AM VA-TOBACCO QUIT 15 YRS OR MORE [place] [facility] [facility] Mar 31, 2023 11:00 AM VA-TOBACCO FORMER USER [place] [facility] [facility] Mar 31, 2023 11:00 AM VA-TOBACCO QUIT 1 TO < 5 YRS [place] [facility] [facility] Mar 25, 2022 10:30 AM VA-TOBACCO NEVER USED [place] [facility]TR [place] [facility] Mar 19, 2021 02:00 PM VA-TOBACCO FORMER USER [place] [facility] [facility] Mar 19, 2021 02:00 PM VA-TOBACCO QUIT < 1 YEAR [place] [facility]TR [facility] [facility] Sep 20, 2018 11:24 AM VA-TOBACCO USE DECLINED TO ANSWER [place] [facility]TR [facility] [facility] Oct 21, 2017 08:13 AM QUIT TOBACCO USE IN PAST YEAR [place] [facility] [facility] Dec 30, 2016 08:28 AM QUIT TOBACCO USE 1-7 YEARS AGO [place] [facility] [facility] Jun 04, 2016 08:43 AM QUIT TOBACCO USE 1-7 YEARS AGO [place] [facility] [facility] May 17, 2015 08:45 AM QUIT TOBACCO USE 1-7 YEARS AGO quit 2 years ago. [place] [facility] [place] [facility] Jun 07, 2014 09:25 AM QUIT TOBACCO USE 1-7 YEARS AGO [place] [facility] [facility] November 30, 2013 08:44 AM QUIT TOBACCO USE IN PAST YEAR [place] [facility] [facility] May 22, 2013 10:10 AM QUIT TOBACCO USE IN PAST YEAR [place] [facility] [place] [facility] December 01, 2012 01:54 PM QUIT TOBACCO USE IN PAST YEAR [place] [facility] [place] [facility] Jun 07, 2012 08:16 AM V1-PT DECLINES TOBACCO CESSATION MEDS [place] [facility]TR [facility] [facility] Jun 07, 2012 08:16 AM V1-PT THINKING ABOUT QUIT TOBACCO USE [place] [facility] [place] [facility] Jan 05, 2012 09:00 AM CURRENT SMOKER intermittenly [place] [facility]TR [facility] [place] [facility] Jan 05, 2012 09:00 AM V1-PT DECLINES REF TO TOBACCO CESS PRGM [facility] [place] [facility] Jan 05, 2012 09:00 AM V1-PT DECLINES TOBACCO CESSATION MEDS [facility] [place] [facility] Jan 05, 2012 09:00 AM V1-PT THINKING ABOUT QUIT TOBACCO USE [facility] [place] [facility] Feb 17, 2011 09:52 AM V1-PT DECLINES TOBACCO CESSATION MEDS [facility] [place] [facility] Feb 17, 2011 09:52 AM V1-PT THINKING ABOUT QUIT TOBACCO USE [facility] [place] [facility] Aug 13, 2010 11:31 AM QUIT TOBACCO USE IN PAST YEAR [facility] [place] [facility] Feb 19, 2010 01:26 PM QUIT TOBACCO USE IN PAST YEAR [facility] [place] [facility] Sep 13, 2009 11:04 AM QUIT TOBACCO USE IN PAST YEAR [place] [facility] [place] [facility] Feb 05, 2009 08:29 AM V1-PT DECLINES REF TO TOBACCO CESS PRGM [facility] [place] [facility] Feb 05, 2009 08:29 AM V1-PT DECLINES TOBACCO CESSATION MEDS [facility] [place] [facility] Feb 05, 2009 08:29 AM V1-PT THINKING ABOUT QUIT TOBACCO USE [place] [facility] [place] [facility] Aug 22, 2008 09:04 AM QUIT TOBACCO USE IN PAST YEAR [place] [facility] [place] [facility] Mar 12, 2008 10:40 AM V1-PT DECLINES REF TO TOBACCO CESS PRGM [facility] [place] [facility] Mar 12, 2008 10:40 AM V1-PT DECLINES TOBACCO CESSATION MEDS [facility] [place] [facility] Mar 12, 2008 10:40 AM V1-PT NOT INTERESTED IN QUIT TOBACCO USE [place] [facility] [place] [facility] Mar 08, 2008 09:37 AM CURRENT SMOKER smokes one pack a day for about 10 years ago. [place] [facility] [place] [facility] Encounter Notes: All associated encounter notes This [...] attempt: pid 05/10/2024 /divya/ LORI QUEVEDO [facility] CLINICAL COORDINATOR Signed: 05/10/2024 09:35 LORI QUEVEDO [place] [facility] [facility] May 10, 2024 09:34 AM LETTERS: LOCAL TITLE: PATIENT LETTER (B) STANDARD TITLE: LETTERS DATE OF NOTE: MAY 10, 2024@09:34 ENTRY DATE: MAY 10, 2024@09:34:33 AUTHOR: LORI QUEVEDO EXP COSIGNER: URGENCY: STATUS: COMPLETED [facility] Toll Free Number [facility] scheduling can be reached at ext. [phone] [facility]- ext. [phone] [facility]- ext. [phone] [facility]- ext. [phone] MAY 10, 2024 REID SAMPLE [address] [place], [place] [address] Dear SAMPLE,REID Thank you for choosing [facility] as your primary choice for health care. [...] would like to be seen, please contact [facility] at ext. [phone] to reschedule an appointment. 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 Sincerely, [facility] [address] [phone] [place] [address] [place] [facility] Outpatient [facility] 25 [facility] [address] [place] [address] [place] [address] ext. [phone] [facility] [address] [address] [place] [address] ext. [phone] [facility] [address] [place] [address] ext. [phone] LORI QUEVEDO [facility]
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
--- OUTSIDE RECORDS SUMMARY | 2024-07-25 11:40 | XMS_ITS | Encounter Summary ---
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 Name Role Phone ROMANA CASTILLO Primary [...] Garcia's Name Patient's Relationship to Policy Garcia [facility] (MEDICAID) [facility] May 14, 2009 [id number] SAMPLE,ROCCO MOORE PATIENT [facility]ID [facility] May 14, 2009 [id number] SAMPLE,ROCCO MOORE PATIENT MEDICAID MEDICAID [facility] Jul 26, 2018 MEDICAI D [id number] SAMPLE,ROCCO MOORE PATIENT MEDICARE (WNR) MEDICARE (M) PART A November 24, 2015 PART A [id number] SAMPLE,ROCCO MOORE PATIENT MEDICARE (WNR) MEDICARE (M) PART B November 24, 2015 PART B [id number] [facility] PATIENT Selected Encounter This section [...] AMBULATORY - PSYCHIATRY [place] [facility] [place] [facility] May 25, 2024 11:30 AM AMBULATORY - MEDICINE [place] C [facility] [place] [facility] Jul 13, 2024 10:00 AM AMBULATORY - MEDICINE [place] C [facility] [place] [facility] Aug 03, 2024 01:00 PM AMBULATORY - PSYCHIATRY [place] [facility] [place] [facility] Aug 24, 2024 11:00 AM AMBULATORY - MEDICINE [facility] [place] [facility] Sep 07, 2024 11:30 AM AMBULATORY - MEDICINE [facility] [place] [facility] Lab Results: +/- 30 days of the encounter This section includes the Chemistry and Hematology Lab Results on record with [place] for the patient. Radiology Reports and Pathology Reports are provided separately, in subsequent sections. Lab Results This section contains the Chemistry/Hematology Results that were resulted 30 days before or 30 daysafter the date of the Encounter. Date/Time Source Result Type Result - Unit Interpretation Reference Range Comment May 16, 2024 04:03 PM [facility] [place] [facility] METHADONE SCREEN Specimen Type: URINE Comment: BRISSA test are qualitative, any L or H flags only indicate a VA alert was sent. Ordering Provider: RONAN MADSEN Report Released Date/Time: May 16, 2024 01:45 PM Reporting [facility] [address] [facility] [address] Performing Lab: [facility] [address] [facility] [address] METHADONE SCREEN None detected(Nega tive) L Negative May 16, 2024 04:03 PM [facility] AMPHETAMINES SCREEN PANEL Specimen Type: [...] May 16, 2024 01:45 PM Reporting Lab: [address] [address] Performing Lab: [address] [address] AMPHETAMINES SCREEN NONE-DETECTED None-Detec dirk, Cutoff = 1000 ng/mL PH, BRISSA 4.7 [pH] 4-10 CREATININE, BRISSA 76.90 mg/dL >20 SP.GRAVITY, BRISSA 1.015 1.00 3-1.02 0 May 16, 2024 04:03 PM [facility] FENTANYL SCREEN PANEL Specimen Type: [...] May 16, 2024 01:45 PM Reporting Lab: [address] [address] Performing Lab: [address] [address] FENTANYL SCREEN NONE-DETECTE D ng/mL Negative: Cutoff = 1.00 ng/mL PH, BRISSA 4.7 [pH] 4-10 CREATININE, BRISSA 76.33 mg/dL >20 SP.GRAVITY, BRISSA 1.015 1.00 3-1.02 0 May 16, 2024 04:03 PM [facility] ALCOHOL, ETHYL URINE PANEL Specimen Type: [...] May 16, 2024 01:45 PM Reporting Lab: [address] [address] Performing Lab: [address] [address] ALCOHOL, ETHYL URINE NONE-DETECTED mg/dL NONE-DETEC DIRK, cutoff = 10 mg/dL PH, BRISSA 4.7 [pH] 4-10 CREATININE, BRISSA 76.90 mg/dL >20 SP.GRAVITY, BRISSA 1.015 1.00 3-1.02 0 May 16, 2024 04:03 PM [facility] CANNABINOIDS SCREEN PANEL Specimen Type: [...] May 16, 2024 01:45 PM Reporting Lab: [address] [address] Performing Lab: [address] [address] CANNABINOIDS SCREEN NONE-DETECTED None-Detec dirk,Cutoff = 50 ng/mL PH, BRISSA 4.7 [pH] 4-10 CREATININE, BRISSA 76.90 mg/dL >20 SP.GRAVITY, BRISSA 1.015 1.00 3-1.02 0 May 16, 2024 04:03 PM [facility] BUPRENORPHINE SCREEN PANEL Specimen Type: [...] May 16, 2024 01:45 PM Reporting Lab: [address] [address] Performing Lab: [address] [address] BUPRENORPHINE (URINE) POSITIVE HH None Detected, Cutoff = 10.0 ng/mL PH, BRISSA 4.7 [pH] 4-10 CREATININE, BRISSA 76.90 mg/dL >20 SP.GRAVITY, BRISSA 1.015 1.00 3-1.02 0 May 16, 2024 04:03 PM [facility] BENZODIAZEPINES SCREEN PANEL Specimen Type: [...] May 16, 2024 01:45 PM Reporting Lab: [address] [address] Performing Lab: [place] [address] BENZODIAZEPINES SCREEN POSITIVE HH None-Detec dirk, Cutoff = 200 ng/mL PH, BRISSA 4.7 [pH] 4-10 CREATININE, BRISSA 76.90 mg/dL >20 SP.GRAVITY, BRISSA 1.015 1.00 3-1.02 0 May 16, 2024 04:03 PM [facility] COCAINE SCREEN PANEL Specimen Type: [...] May 16, 2024 01:45 PM Reporting Lab: [address] [address] Performing Lab: [address] [address] COCAINE SCREEN NONE-DETECTED N one-Detec dirk,Cutoff = 300 ng/mL PH, BRISSA 4.7 [pH] 4-10 CREATININE, BRISSA 76.90 mg/dL >20 SP.GRAVITY, BRISSA 1.015 1.00 3-1.02 0 May 16, 2024 04:03 PM [facility] OPIATES SCREEN PANEL Specimen Type: [...] May 16, 2024 01:45 PM Reporting Lab: [address] [address] Performing Lab: [facility] [address] [address] OPIATES SCREEN POSITIVE HH None- Detec dirk, Cutoff = 300 ng/mL PH, BRISSA 4.7 [pH] 4-10 CREATININE, BRISSA 76.90 mg/dL >20 SP.GRAVITY, BRISSA 1.015 1.00 3-1.02 0 May 16, 2024 04:03 PM [facility] OXYCODONE SCREEN PANEL Specimen Type: [...] May 16, 2024 01:45 PM Reporting Lab: [address] [address] Performing Lab: [address] [address] OXYCODONE SCREEN POSITIVE HH Non e-Detec dirk, [...] 06, 2024 09:00 AM VA-TOBACCO FORMER USER [facility] Tobacco Use History This section includes a history of the smoking, or tobacco-related health factors, that were collected on or before the date of the Encounter. The data comes from the [place] facility where the Encounter took place. Date/Time Smoking Status/Tobac co Use Comment Facility Mar 06, 2024 09:00 AM VA-TOBACCO QUIT 15 YRS OR MORE [place] [facility] [place] [facility] Mar 31, 2023 11:00 AM VA-TOBACCO FORMER USER [place] [facility] [place] [facility] Mar 31, 2023 11:00 AM VA-TOBACCO QUIT 1 TO < 5 YRS [place] [facility] [place] [facility] Mar 25, 2022 10:30 AM VA-TOBACCO NEVER USED [place] [facility] [place] [facility] Mar 19, 2021 02:00 PM VA-TOBACCO FORMER USER [place] [facility] [place] [facility] Mar 19, 2021 02:00 PM VA-TOBACCO QUIT < 1 YEAR [place] [facility] [place] [facility] Sep 20, 2018 11:24 AM VA-TOBACCO USE DECLINED TO ANSWER [place] [facility] [place] [facility] Oct 21, 2017 08:13 AM QUIT TOBACCO USE IN PAST YEAR [place] [facility] [place] [facility] Dec 30, 2016 08:28 AM QUIT TOBACCO USE 1-7 YEARS AGO [place] [facility] [place] [facility] Jun 04, 2016 08:43 AM QUIT TOBACCO USE 1-7 YEARS AGO [place] [facility] [place] [facility] May 17, 2015 08:45 AM QUIT TOBACCO USE 1-7 YEARS AGO quit 2 years ago. [place] [facility] [place] [facility] Jun 07, 2014 09:25 AM QUIT TOBACCO USE 1-7 YEARS AGO [place] [facility] [place] [facility] November 30, 2013 08:44 AM QUIT TOBACCO USE IN PAST YEAR [place] [facility] [place] [facility] May 22, 2013 10:10 AM QUIT TOBACCO USE IN PAST YEAR [place] [facility] [place] [facility] December 01, 2012 01:54 PM QUIT TOBACCO USE IN PAST YEAR [place] [facility] [place] [facility] Jun 07, 2012 08:16 AM V1-PT DECLINES TOBACCO CESSATION MEDS [place] [facility] [place] [facility] Jun 07, 2012 08:16 AM V1-PT THINKING ABOUT QUIT TOBACCO USE [place] [facility] [place] [facility] Jan 05, 2012 09:00 AM CURRENT SMOKER intermittenly [place] [facility] [place] [facility] Jan 05, 2012 09:00 AM V1-PT DECLINES REF TO TOBACCO CESS PRGM [facility] [place] [facility] Jan 05, 2012 09:00 AM V1-PT DECLINES TOBACCO CESSATION MEDS [facility] [place] [facility] Jan 05, 2012 09:00 AM V1-PT THINKING ABOUT QUIT TOBACCO USE [facility] [place] [facility] Feb 17, 2011 09:52 AM V1-PT DECLINES TOBACCO CESSATION MEDS [facility] [place] [facility] Feb 17, 2011 09:52 AM V1-PT THINKING ABOUT QUIT TOBACCO USE [facility] [place] [facility] Aug 13, 2010 11:31 AM QUIT TOBACCO USE IN PAST YEAR [facility] [place] [facility] Feb 19, 2010 01:26 PM QUIT TOBACCO USE IN PAST YEAR [facility] [place] [facility] Sep 13, 2009 11:04 AM [facility] [place] [facility] Feb 05, 2009 08:29 AM V1-PT DECLINES REF TO TOBACCO CESS PRGM [facility] [place] [facility] Feb 05, 2009 08:29 AM V1-PT DECLINES [facility]BACCO [facility] [place] [facility] Feb 05, 2009 08:29 AM V1-PT THINKING ABOUT QUIT TOBACCO USE [facility] [place] [facility] Aug 22, 2008 09:04 AM QUIT TOBACCO USE IN PAST YEAR [place] [facility] [place] [facility] Mar 12, 2008 10:40 AM V1-PT DECLINES REF TO TOBACCO CESS PRGM [facility] [place] [facility] Mar 12, 2008 10:40 AM V1-PT DECLINES TOBACCO CESSATION MEDS [facility] [place] [facility] Mar 12, 2008 10:40 AM V1-PT NOT INTERESTED IN QUIT TOBACCO USE [place] [facility] [place] [facility] Mar 08, 2008 09:37 AM CURRENT SMOKER smokes one pack a day for about 10 years ago. [place] [facility] [place] [facility] Encounter Notes: All associated encounter notes This section contains the clinical notes associated to the Encounter. Date/Time Encounter Note(s) Provider Source May 10, 2024 09:10 AM ACCOUNTING OF DISC LOSURES NOTE: LOCAL TITLE: STATE PRESCRIPTION DRUG MONITORING PROGRAM STANDARD TITLE: ACCOUNTING OF DISCLOSURES NOTE DATE OF NOTE: MAY 10, 2024@09:10:50 ENTRY DATE: MAY 10, 2024@09:10:50 AUTHOR: GAL MADSEN EXP COSIGNER: URGENCY: STATUS: [...] information was shared with the PDMP [place]. Prescription(s[facility] filled outside the [facility] in the last 90 days are noted. However, they do not raise significant safety concerns and do not influence the treatment plan at this time. 03/21/24 oxycodone 15 mg #42 from [facility] /divya/ Gal Madsen MD STAFF PHYSICIAN Signed: 05/10/2024 09:14 GAL MADSEN [place] [facility]
--- OUTSIDE RECORDS SUMMARY | 2024-07-25 11:40 | XMS_ITS | Encounter Summary ---
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 Role Phone ROMANA CASTILLO [...] Patient's Relationship to Policy Garcia [facility] (MEDICAID) [facility] May 14, 2009 [id number] SAMPLE,ROCCO MOORE PATIENT [facility] MEDICAID [facility] May 14, 2009 [id number] SAMPLE,ROCCO MOORE PATIENT MEDICAID MEDICAID [facility] Jul 26, 2018 MEDICAI D [id number] SAMPLE,ROCCO MOORE PATIENT MEDICARE (WNR) MEDICARE (M) PART A November 24, 2015 PART A [id number] [phone] [id number] SAMPLE,ROCCO MOORE PATIENT MEDICARE (WNR) MEDICARE (M) PART B November 24, 2015 PART B [id number] ROCCO QUEZADA PATIENT Selected Encounter This section includes the information on [place] at [place] for the Encounter. Date/Time Encounter Type Encounter Description Reason Pro vider Source Apr 24, 2024 12:00 AM Outpatient Encounter EVENT (HISTORICAL) [...] 02, 2024 11:00 AM AMBULATORY - MEDICINE [facility] [place] [facility] May 15, 2024 11:30 AM AM[place] [facility] May 25, 2024 11:30 AM AMBULATORY MEDICINE [place] C [place] [facility] Jul 13, 2024 10:00 AM AMBULATORY - MEDICINE [place] [facility] Aug 03, 2024 01:00 PM AMBULATORY [place] PS[place]ATRY [place] [facility] Aug 24, 2024 11:00 AM AMBULATORY - MEDICINE [facility] [place] [facility] Sep 07, 2024 11:30 AM AMBULATORY - MEDICINE [facility] [place] [facility] Lab Results: +/- 30 days of the [...] Range Comment May 16, 2024 04:03 PM [facility] [place] [facility] METHADONE SCREEN Specimen Type: URINE Comment: BRISSA test are qualitative, any L or H flags only indicate a VA alert was sent. Ordering Provider: RONAN MADSEN Report Released Date/Time: May 16, 2024 01:45 PM Reporting Lab: [place] [facility] [address] [facility] [address] Performing Lab: [facility] [address] [facility] [address] METHADONE SCREEN None detected(Nega tive) L Negative May 16, 2024 04:03 PM [facility] ALCOHOL, ETHYL URINE PANEL Specimen Type: [...] May 16, 2024 01:45 PM Reporting Lab: [address] [address] Performing Lab: [address] [address] ALCOHOL, ETHYL URINE NONE-DETECTED mg/dL NONE-DETEC DIRK, cutoff = 10 mg/dL PH, BRISSA 4.7 [pH] 4-10 CREATININE, BRISSA 76.90 mg/dL >20 SP.GRAVITY, BRISSA 1.015 1.00 3-1.02 0 May 16, 2024 04:03 PM [facility] AMPHETAMINES SCREEN PANEL Specimen Type: URINE [...] May 16, 2024 01:45 PM Reporting Lab: [address] [address] Performing Lab: [address] [place] [address] AMPHETAMINES SCREEN NONE-DETECTED None-Detec dirk, Cutoff = 1000 ng/mL PH, BRISSA 4.7 [pH] 4-10 CREATININE, BRISSA 76.90 mg/dL >20 SP.GRAVITY, BRISSA 1.015 1.00 3-1.02 0 May 16, 2024 04:03 PM [facility] FENTANYL SCREEN PANEL Specimen Type: URINE [...] May 16, 2024 01:45 PM Reporting Lab: [place] [id number] Performing Lab: [address] FENTANYL SCREEN NONE-DETECTE D ng/mL Negative: Cutoff = 1.00 ng/mL PH, BRISSA 4.7 [pH] 4-10 CREATININE, BRISSA 76.33 mg/dL >20 SP.GRAVITY, BRISSA 1.015 1.00 3-1.02 0 May 16, 2024 04:03 PM [facility] BUPRENORPHINE SCREEN PANEL Specimen Type: URINE [...] May 16, 2024 01:45 PM Reporting Lab: [address] [address] Performing Lab: [address] [address] BUPRENORPHINE (URINE) POSITIVE HH None Detected, Cutoff = 10.0 ng/mL PH, BRISSA 4.7 [pH] 4-10 CREATININE, BRISSA 76.90 mg/dL >20 SP.GRAVITY, BRISSA 1.015 1.00 3-1.02 0 May 16, 2024 04:03 PM [facility] BENZODIAZEPINES SCREEN PANEL Specimen Type: URINE [...] May 16, 2024 01:45 PM Reporting Lab: [address] [address] Performing Lab: [address] [address] BENZODIAZEPINES SCREEN POSITIVE HH None-Detec dirk, Cutoff = 200 ng/mL PH, BRISSA 4.7 [pH] 4-10 CREATININE, BRISSA 76.90 mg/dL >20 SP.GRAVITY, BRISSA 1.015 1.00 3-1.02 0 May 16, 2024 04:03 PM [facility] COCAINE SCREEN PANEL Specimen Type: URINE [...] May 16, 2024 01:45 PM Reporting Lab: [address] [address] Performing Lab: [address] [address] COCAINE SCREEN NONE-DETECTED N one-Detec dirk,Cutoff = 300 ng/mL PH, BRISSA 4.7 [pH] 4-10 CREATININE, BRISSA 76.90 mg/dL >20 SP.GRAVITY, BRISSA 1.015 1.00 3-1.02 0 May 16, 2024 04:03 PM [facility] OPIATES SCREEN PANEL Specimen Type: URINE [...] May 16, 2024 01:45 PM Reporting Lab: [address] [address] Performing Lab: [address] [address] OPIATES SCREEN POSITIVE HH None- Detec dirk, Cutoff = 300 ng/mL PH, BRISSA 4.7 [pH] 4-10 CREATININE, BRISSA 76.90 mg/dL >20 SP.GRAVITY, BRISSA 1.015 1.00 3-1.02 0 May 16, 2024 04:03 PM [facility] OXYCODONE SCREEN PANEL Specimen Type: URINE [...] 16, 2024 01:45 PM Reporting Lab: [place] [address] [address] Performing Lab: [address] [address] OXYCODONE SCREEN POSITIVE HH Non e-Detec dirk, Cutoff = 100 ng/mL PH, BRISSA 4.7 [pH] 4-10 CREATININE, BRISSA 76.90 mg/dL >20 SP.GRAVITY, BRISSA 1.015 1.00 3-1.02 0 May 16, 2024 04:03 PM [facility] CANNABINOIDS SCREEN PANEL Specimen Type: URINE [...] May 16, 2024 01:45 PM Reporting Lab: [address] [address] Performing Lab: [address] [address] CANNABINOIDS SCREEN NONE-DETECTED None-Detec dirk,Cutoff = 50 [...] AM VA-TOBACCO QUIT 15 YRS OR MORE [facility] Tobacco Use History This section includes a history of the smoking, or tobacco-related health factors, that were collected on or before the date of the Encounter. The data comes from the [place] facility where the Encounter took place. Date/Time Smoking Status/Tobac co Use Comment Facility Mar 06, 2024 09:00 AM VA-TOBACCO QUIT 15 YRS OR MORE [place] [facility] Mar 31, 2023 11:00 AM VA-TOBACCO FORMER USER [place] [facility] Mar 31, 2023 11:00 AM VA-TOBACCO QUIT 1 TO < 5 YRS [place] [facility] [facility] Mar 25, 2022 10:30 AM VA-TOBACCO NEVER USED [place] [facility] Mar 19, 2021 02:00 PM VA-TOBACCO FORMER USER [place] [facility] Mar 19, 2021 02:00 PM VA-TOBACCO QUIT < 1 YEAR [place] [facility] [facility] Sep 20, 2018 11:24 AM VA-TOBACCO USE DECLINED TO ANSWER [place] [facility] Oct 21, 2017 08:13 AM QUIT TOBACCO USE IN PAST YEAR [place] [place] [facility] Dec 30, 2016 08:28 AM QUIT TOBACCO USE 1-7 YEARS AGO [place] [facility] [place] [facility] Jun 04, 2016 08:43 AM QUIT TOBACCO USE 1-7 YEARS AGO [place] [facility] [place] [facility] May 17, 2015 08:45 AM QUIT TOBACCO USE 1-7 YEARS AGO quit 2 years ago. [place] [facility] [place] [facility] Jun 07, 2014 09:25 AM QUIT TOBACCO USE 1-7 YEARS AGO [place] [facility] [place] [facility] November 30, 2013 08:44 AM QUIT TOBACCO USE IN PAST YEAR [place] [place] [facility] May 22, 2013 10:10 AM QUIT TOBACCO USE IN PAST YEAR [place] [facility] [place] [facility] December 01, 2012 01:54 PM QUIT TOBACCO USE IN PAST YEAR [place] [facility] [place] [facility] Jun 07, 2012 08:16 AM V1-PT DECLINES TOBACCO CESSATION MEDS [place] [place] [facility] Jun 07, 2012 08:16 AM V1-PT THINKING ABOUT QUIT TOBACCO USE [place] [facility] [place] [facility] Jan 05, 2012 09:00 AM CURRENT SMOKER intermittenly [place] [facility] [place] [facility] Jan 05, 2012 09:00 AM V1-PT DECLINES REF TO TOBACCO CESS PRGM [place] [facility] Jan 05, 2012 09:00 AM V1-PT DECLINES TOBACCO CESSATION MEDS [facility] [place] [facility] Jan 05, 2012 09:00 AM V1-PT THINKING ABOUT QUIT TOBACCO USE [facility] [place] [facility] Feb 17, 2011 09:52 AM V1-PT DECLINES TOBACCO CESSATION MEDS [facility] [place] [facility] Feb 17, 2011 09:52 AM V1-PT THINKING ABOUT QUIT TOBACCO USE [facility] [place] [facility] Aug 13, 2010 11:31 AM QUIT TOBACCO USE IN PAST YEAR [place] [place] [facility] Feb 19, 2010 01:26 PM QUIT TOBACCO USE IN PAST YEAR [facility] [place] [facility] Sep 13, 2009 11:04 AM QUIT TOBACCO USE IN PAST YEAR [place] [facility] [place] [facility] Feb 05, 2009 08:29 AM V1-PT DECLINES REF TO TOBACCO CESS PRGM [facility] [place] [facility] Feb 05, 2009 08:29 AM V1-PT DECLINES TOBACCO CESSATION MEDS [facility] [place] [facility] Feb 05, 2009 08:29 AM V1-PT THINKING ABOUT QUIT TOBACCO USE [facility] [place] [facility] Aug 22, 2008 09:04 AM QUIT TOBACCO USE IN PAST YEAR [place] [facility] [place] [facility] Mar 12, 2008 10:40 AM V1-PT DECLINES REF TO TOBACCO CESS PRGM [place] [facility] [place] [facility] Mar 12, 2008 10:40 AM V1-PT DECLINES TOBACCO CESSATION MEDS [place] [facility] [place] [facility] Mar 12, 2008 10:40 AM V1-PT NOT INTERESTED IN QUIT TOBACCO USE [place] [facility] [place] [facility] Mar 08, 2008 09:37 AM CURRENT SMOKER smokes one pack a day for about 10 years ago. [facility] [place] [facility] Encounter Notes: All associated encounter notes This section contains the clinical notes associated to the Encounter. Date/Time Encounter Note(s) Provider Source Apr 24, 2024 12:00 AM NONVA NOTE: LOCAL TITLE: NON-VA HOSPITALIZATIONS/ER STANDARD TITLE: NONVA NOTE DATE OF NOTE: APR 24, 2024 ENTRY DATE: MAY 22, 2024@11:06:18 AUTHOR: PHYLLIS RIDER EXP COSIGNER: URGENCY: STATUS: COMPLETED VistA Imaging - Scanned Document SCANNED DOCUMENT SIGNATURE NOT REQUIRED Electronically Filed: 05/22/2024 by: PHYLLIS TINOCO CNTRL [facility]
--- OUTSIDE RECORDS SUMMARY | 2024-07-25 11:40 | XMS_ITS | Encounter Summary ---
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 Address [address] [place] [id number] Care Team Providers Care Specimen Transporter Name Role Phone ROMANA CASTILLO Primary Care [...] [facility] (MEDICAID) [facility] May 14, 2009 [id number] SAMPLE,ROCCO MOORE PATIENT [facility]ICAID [facility] May 14, 2009 [id number] SAMPLE,ROCCO MOORE PATIENT MEDICAID MEDICAID [facility] Jul 26, 2018 MEDICAI D [id number] SAMPLE,ROCCO MOORE PATIENT MEDICARE (WNR) MEDICARE (M) PART A November 24, 2015 PART A [id number] SAMPLE,ROCCO MOORE PATIENT MEDICARE (WNR) MEDICARE (M) PART B November 24, 2015 PART B [id number] [facility] PATIENT Selected Encounter This section [...] AMBULATORY - PSYCHIATRY [place] [facility] [place] [facility] May 25, 2024 11:30 AM AMBULATORY - MEDICINE [place] C [place] [facility] Jul 13, 2024 10:00 AM AMBULATORY - MEDICINE [place] C [place] [facility] Aug 03, 2024 01:00 PM AMBULATORY - PSYCHIATRY [place] [facility] [place] [facility] Aug 24, 2024 11:00 AM AMBULATORY - MEDICINE [facility] [place] [place] [facility] Sep 07, 2024 11:30 AM AMBULATORY - MEDICINE [facility] [place] [facility] Lab Results: +/- 30 days [...] Range Comment May 16, 2024 04:03 PM [facility] [place] [facility] METHADONE SCREEN Specimen Type: URINE Comment: BRISSA test are qualitative, any L or H flags only indicate a VA alert was sent. Ordering Provider: RONAN MADSEN Report Released Date/Time: May 16, 2024 01:45 PM Reporting Lab: [facility] [address] [facility] [address] Performing Lab: [facility] [address] [facility] [address] METHADONE SCREEN None detected(Nega tive) L Negative May 16, 2024 04:03 PM [facility] AMPHETAMINES SCREEN PANEL Specimen Type: [...] May 16, 2024 01:45 PM Reporting Lab: [address] [address] Performing Lab: [address] [address] AMPHETAMINES SCREEN NONE-DETECTED None-Detec dirk, Cutoff = 1000 ng/mL PH, BRISSA 4.7 [pH] 4-10 CREATININE, BRISSA 76.90 mg/dL >20 SP.GRAVITY, BRISSA 1.015 1.00 3-1.02 0 May 16, 2024 04:03 PM [facility] ALCOHOL, ETHYL URINE PANEL [...] May 16, 2024 01:45 PM Reporting Lab: [address] [address] Performing Lab: [address] [address] ALCOHOL, ETHYL URINE NONE-DETECTED mg/dL NONE-DETEC DIRK, cutoff = 10 mg/dL PH, BRISSA 4.7 [pH] 4-10 CREATININE, BRISSA 76.90 mg/dL >20 SP.GRAVITY, BRISSA 1.015 1.00 3-1.02 0 May 16, 2024 04:03 PM [facility] FENTANYL SCREEN PANEL Specimen Type: [...] May 16, 2024 01:45 PM Reporting Lab: [address] [address] Performing Lab: [address] [address] FENTANYL SCREEN NONE-DETECTE D ng/mL Negative: Cutoff = 1.00 ng/mL PH, BRISSA 4.7 [pH] 4-10 CREATININE, BRISSA 76.33 mg/dL >20 SP.GRAVITY, BRISSA 1.015 1.00 3-1.02 0 May 16, 2024 04:03 PM [facility] BENZODIAZEPINES SCREEN PANEL Specimen Type: [...] May 16, 2024 01:45 PM Reporting Lab: [address] [address] Performing Lab: [address] [address] BENZODIAZEPINES SCREEN POSITIVE HH None-Detec dirk, Cutoff = 200 ng/mL PH, BRISSA 4.7 [pH] 4-10 CREATININE, BRISSA 76.90 mg/dL >20 SP.GRAVITY, BRISSA 1.015 1.00 3-1.02 0 May 16, 2024 04:03 PM [facility] CANNABINOIDS SCREEN PANEL Specimen Type: [...] May 16, 2024 01:45 PM Reporting Lab: [address] [address] Performing Lab: [address] [address] CANNABINOIDS SCREEN NONE-DETECTED None-Detec dirk,Cutoff = 50 ng/mL PH, BRISSA 4.7 [pH] 4-10 CREATININE, BRISSA 76.90 mg/dL >20 SP.GRAVITY, BRISSA 1.015 1.00 3-1.02 0 May 16, 2024 04:03 PM [facility] BUPRENORPHINE SCREEN PANEL Specimen Type: [...] May 16, 2024 01:45 PM Reporting Lab: [address] [address] Performing Lab: [address] [address] BUPRENORPHINE (URINE) POSITIVE HH None Detected, Cutoff = 10.0 ng/mL PH, BRISSA 4.7 [pH] 4-10 CREATININE, BRISSA 76.90 mg/dL >20 SP.GRAVITY, BRISSA 1.015 1.00 3-1.02 0 May 16, 2024 04:03 PM [facility] COCAINE SCREEN PANEL Specimen Type: [...] May 16, 2024 01:45 PM Reporting Lab: [address] [address] Performing Lab: [place] [id number] COCAINE SCREEN NONE-DETECTED N one-Detec dirk,Cutoff = 300 ng/mL PH, BRISSA 4.7 [pH] 4-10 CREATININE, BRISSA 76.90 mg/dL >20 SP.GRAVITY, BRISSA 1.015 1.00 3-1.02 0 May 16, 2024 04:03 PM [facility] OPIATES SCREEN PANEL Specimen Type: [...] May 16, 2024 01:45 PM Reporting Lab: [address] [address] Performing Lab: [facility] [address] [address] OPIATES SCREEN POSITIVE HH None- Detec dirk, Cutoff = 300 ng/mL PH, BRISSA 4.7 [pH] 4-10 CREATININE, BRISSA 76.90 mg/dL >20 SP.GRAVITY, BRISSA 1.015 1.00 3-1.02 0 May 16, 2024 04:03 PM [facility] OXYCODONE SCREEN PANEL Specimen Type: [...] May 16, 2024 01:45 PM Reporting Lab: [address] [address] Performing Lab: [address] [address] OXYCODONE SCREEN POSITIVE HH Non e-Detec dirk, [...] 06, 2024 09:00 AM VA-TOBACCO FORMER USER [facility] Tobacco Use History This section includes a history of the smoking, or tobacco-related health factors, that were collected on or before the date of the Encounter. The data comes from the [place] facility where the Encounter took place. Date/Time Smoking Status/Tobac co Use Comment Facility Mar 06, 2024 09:00 AM VA-TOBACCO QUIT 15 YRS OR MORE [place] [facility] [place] [facility] Mar 31, 2023 11:00 AM VA-TOBACCO FORMER USER [place] [facility] [place] [facility] Mar 31, 2023 11:00 AM VA-TOBACCO QUIT 1 TO < 5 YRS [place] [facility] [place] [facility] Mar 25, 2022 10:30 AM VA-TOBACCO NEVER USED [place] [facility] [place] [facility] Mar 19, 2021 02:00 PM VA-TOBACCO FORMER USER [place] [facility] [place] [facility] Mar 19, 2021 02:00 PM VA-TOBACCO QUIT < 1 YEAR [place] [facility] [place] [facility] Sep 20, 2018 11:24 AM VA-TOBACCO USE DECLINED TO ANSWER [place] [facility] [place] [facility] Oct 21, 2017 08:13 AM QUIT TOBACCO USE IN PAST YEAR [place] [facility] [facility] Dec 30, 2016 08:28 AM QUIT TOBACCO USE 1-7 YEARS AGO [place] [facility] [facility] Jun 04, 2016 08:43 AM QUIT TOBACCO USE 1-7 YEARS AGO [place] [facility] [place] [facility] May 17, 2015 08:45 AM QUIT TOBACCO USE 1-7 YEARS AGO quit 2 years ago. [place] [facility] [place] [facility] Jun 07, 2014 09:25 AM QUIT TOBACCO USE 1-7 YEARS AGO [place] [facility] [facility] November 30, 2013 08:44 AM QUIT TOBACCO USE IN PAST YEAR [place] [facility] [facility] May 22, 2013 10:10 AM QUIT TOBACCO USE IN PAST YEAR [place] [facility] [facility] December 01, 2012 01:54 PM QUIT TOBACCO USE IN PAST YEAR [place] [facility] [facility] Jun 07, 2012 08:16 AM V1-PT DECLINES TOBACCO CESSATION MEDS [place] [facility] [facility] Jun 07, 2012 08:16 AM V1-PT THINKING ABOUT QUIT TOBACCO USE [place] [facility] [facility] Jan 05, 2012 09:00 AM CURRENT SMOKER intermittenly [place] [facility] [facility] Jan 05, 2012 09:00 AM V1-PT DECLINES REF TO TOBACCO CESS PRGM [facility] [place] [facility] Jan 05, 2012 09:00 AM V1-PT DECLINES TOBACCO CESSATION MEDS [facility] [place] [facility] Jan 05, 2012 09:00 AM V1-PT THINKING ABOUT QUIT TOBACCO USE [facility] [facility] Feb 17, 2011 09:52 AM V1-PT DECLINES TOBACCO CESSATION MEDS [facility] [place] [facility] Feb 17, 2011 09:52 AM V1-PT THINKING ABOUT QUIT TOBACCO USE [facility] [facility] Aug 13, 2010 11:31 AM QUIT TOBACCO USE IN PAST YEAR [place] [facility] [facility] Feb 19, 2010 01:26 PM QUIT TOBACCO USE IN PAST YEAR [place] [facility] [facility] Sep 13, 2009 11:04 AM QUIT TOBACCO USE IN PAST YEAR [facility] [place] [facility] Feb 05, 2009 08:29 AM V1-PT DECLINES REF TO TOBACCO CESS PRGM [facility] [place] [facility] Feb 05, 2009 08:29 AM V1-PT DECLINES TOBACCO CESSATION MEDS [facility] [place] [facility] Feb 05, 2009 08:29 AM V1-PT THINKING ABOUT QUIT TOBACCO USE [place] [facility] [place] [facility] Aug 22, 2008 09:04 AM QUIT TOBACCO USE IN PAST YEAR [place] [facility] [place] [facility] Mar 12, 2008 10:40 AM V1-PT DECLINES REF TO TOBACCO CESS PRGM [facility] [facility] Mar 12, 2008 10:40 AM V1-PT DECLINES TOBACCO CESSATION MEDS [facility] [facility] Mar 12, 2008 10:40 AM V1-PT NOT INTERESTED IN QUIT TOBACCO USE [place] [facility] [facility] Mar 08, 2008 09:37 AM CURRENT SMOKER smokes one pack a day for about 10 years ago. [facility] [place] [facility] Encounter Notes: All associated encounter notes This section contains the clinical notes associated to the Encounter. Date/Time Encounter Note(s) Provider Source May 09, 2024 08:56 AM TELEPHONE ENCOUNTE R NOTE: LOCAL TITLE: TELEPHONE NOTE/SPECIALTY CLINIC STANDARD TITLE: TELEPHONE ENCOUNTER NOTE DATE OF NOTE: MAY 09, 2024@08:56 ENTRY DATE: MAY 09, 2024@08:56:31 AUTHOR: LORI QUEVEDO COSIGNER: URGENCY: STATUS: COMPLETED Called and spoke with pt to remind them that they have a VVC appt with the Pain clinic on 05/10/2024 at 0900. 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
--- OUTSIDE RECORDS SUMMARY | 2024-07-25 11:40 | XMS_ITS | Encounter Summary ---
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 (MEDICAID) [facility] May 14, 2009 [id number] SAMPLE,ROCCO MOORE PATIENT [facility] May 14, 2009 [id number] SAMPLE,ROCCO MOORE PATIENT MEDICAID MEDICAID [facility] Jul 26, 2018 MEDICAI D [id number] SAMPLE,ROCCO MOORE PATIENT MEDICARE (WNR) MEDICARE (M) PART A November 24, 2015 PART A [id number] SAMPLE,ROCCO MOORE PATIENT MEDICARE (WNR) MEDICARE (M) PART B November 24, 2015 PART B [id number] SAMPLEROCCO PATIENT Selected Encounter This section [...] 25, 2024 11:30 AM AM[facility]UL[facility]ORY - [facility] Jul 13, 2024 10:00 AM [facility] Aug 03, 2024 01:00 PM [facility] Aug 24, 2024 11:00 AM [facility] [place] [facility] Sep 07, 2024 11:30 AM AMBULATORY MEDICINE [facility] Lab Results: +/- 30 days of [...] Range Comment May 16, 2024 04:03 PM [facility] METHADONE SCREEN Specimen Type: URINE Comment: BRISSA test are qualitative, any L or H flags only indicate a [place] alert was sent. Ordering Provider: RONAN MADSEN Report Released Date/Time: May 16, 2024 01:45 PM Reporting Lab: [facility] [address] [facility] [address] Performing Lab: [facility] [address] [facility] [address] METHADONE SCREEN None detected(Nega tive) L Negative May 16, 2024 04:03 PM [facility] ALCOHOL, ETHYL URINE PANEL Specimen Type: [...] May 16, 2024 01:45 PM Reporting Lab: [address] [address] Performing Lab: [address] [address] ALCOHOL, ETHYL URINE NONE-DETECTED mg/dL NONE-DETEC DIRK, cutoff = 10 mg/dL PH, BRISSA 4.7 [pH] 4-10 CREATININE, BRISSA 76.90 mg/dL >20 SP.GRAVITY, BRISSA 1.015 1.00 3-1.02 0 May 16, 2024 04:03 PM [facility] AMPHETAMINES SCREEN PANEL Specimen Type: URINE [...] May 16, 2024 01:45 PM Reporting Lab: [address] [address] Performing Lab: [address] [address] AMPHETAMINES SCREEN NONE-DETECTED None-Detec dirk, Cutoff = 1000 ng/mL PH, BRISSA 4.7 [pH] 4-10 CREATININE, BRISSA 76.90 mg/dL >20 SP.GRAVITY, BRISSA 1.015 1.00 3-1.02 0 May 16, 2024 04:03 PM [facility] FENTANYL SCREEN PANEL Specimen Type: URINE [...] May 16, 2024 01:45 PM Reporting Lab: [address] [address] Performing Lab: [address] [address] FENTANYL SCREEN NONE-DETECTE D ng/mL Negative: Cutoff = 1.00 ng/mL PH, BRISSA 4.7 [pH] 4-10 CREATININE, BRISSA 76.33 mg/dL >20 SP.GRAVITY, BRISSA 1.015 1.00 3-1.02 0 May 16, 2024 04:03 PM [facility] BUPRENORPHINE SCREEN PANEL Specimen Type: URINE [...] May 16, 2024 01:45 PM Reporting Lab: [address] [address] Performing Lab: [address] [address] BUPRENORPHINE (URINE) POSITIVE HH None Detected, Cutoff = 10.0 ng/mL PH, BRISSA 4.7 [pH] 4-10 CREATININE, BRISSA 76.90 mg/dL >20 SP.GRAVITY, BRISSA 1.015 1.00 3-1.02 0 May 16, 2024 04:03 PM [facility] BENZODIAZEPINES SCREEN PANEL Specimen Type: URINE [...] May 16, 2024 01:45 PM Reporting Lab: [address] [address] Performing Lab: [address] [address] BENZODIAZEPINES SCREEN POSITIVE HH None-Detec dirk, Cutoff = 200 ng/mL PH, BRISSA 4.7 [pH] 4-10 CREATININE, BRISSA 76.90 mg/dL >20 SP.GRAVITY, BRISSA 1.015 1.00 3-1.02 0 May 16, 2024 04:03 PM [facility] COCAINE SCREEN PANEL Specimen Type: URINE [...] May 16, 2024 01:45 PM Reporting Lab: [address] [address] Performing Lab: [address] [address] COCAINE SCREEN NONE-DETECTED N one-Detec dirk,Cutoff = 300 ng/mL PH, BRISSA 4.7 [pH] 4-10 CREATININE, BRISSA 76.90 mg/dL >20 SP.GRAVITY, BRISSA 1.015 1.00 3-1.02 0 May 16, 2024 04:03 PM [facility] OPIATES SCREEN PANEL Specimen Type: URINE [...] May 16, 2024 01:45 PM Reporting Lab: [address] [address] Performing Lab: [address] [address] OPIATES SCREEN POSITIVE HH None- Detec dirk, Cutoff = 300 ng/mL PH, BRISSA 4.7 [pH] 4-10 CREATININE, BRISSA 76.90 mg/dL >20 SP.GRAVITY, BRISSA 1.015 1.00 3-1.02 0 May 16, 2024 04:03 PM [facility] OXYCODONE SCREEN PANEL Specimen Type: URINE [...] May 16, 2024 01:45 PM Reporting Lab: [address] [address] Performing Lab: [address] [address] OXYCODONE SCREEN POSITIVE HH Non e-Detec dirk, Cutoff = 100 ng/mL PH, BRISSA 4.7 [pH] 4-10 CREATININE, BRISSA 76.90 mg/dL >20 SP.GRAVITY, BRISSA 1.015 1.00 3-1.02 0 May 16, 2024 04:03 PM [facility] CANNABINOIDS SCREEN PANEL Specimen Type: URINE [...] May 16, 2024 01:45 PM Reporting Lab: [address] [address] Performing Lab: [address] [address] CANNABINOIDS SCREEN NONE-DETECTED None-Detec dirk,Cutoff = 50 [...] place. Date/Time Current Smoking Status Comment [facility] Mar 06, 2024 09:00 AM [place]-TOBACCO QUIT 15 YRS OR MORE [facility] Tobacco Use History This section includes a history of the smoking, or tobacco-related health factors, that were collected on or before the date of the Encounter. The data comes from the [place] facility where the Encounter took place. Date/Time Smoking Status/Tobac co Use Comment Facility Mar 06, 2024 09:00 AM [place]-TO[facility]CO [facility] Mar 31, 2023 11:00 AM VA-TOBACCO FORMER USER [place] [facility] [place] [facility] Mar 31, 2023 11:00 AM VA-TOBACCO QUIT 1 TO < 5 YRS [place] [facility] [place] [facility] Mar 25, 2022 10:30 AM VA-TOBACCO NEVER USED [place] [facility] [place] [facility] Mar 19, 2021 02:00 PM VA-TOBACCO FORMER USER [place] [facility] [place] [facility] Mar 19, 2021 02:00 PM VA-TOBACCO QUIT < 1 YEAR [place] [facility] [place] [facility] Sep 20, 2018 11:24 AM VA-TOBACCO USE DECLINED TO ANSWER [place] [facility] [place] [facility] Oct 21, 2017 08:13 AM QUIT TOBACCO USE IN PAST YEAR [place] [facility] [place] [facility] Dec 30, 2016 08:28 AM QUIT TOBACCO USE 1-7 YEARS AGO [place] [facility] [place] [facility] Jun 04, 2016 08:43 AM QUIT TOBACCO USE 1-7 YEARS AGO [place] [facility] [place] [facility] May 17, 2015 08:45 AM QUIT TOBACCO USE 1-7 YEARS AGO quit 2 years ago. [place] [facility] [place] [place] [facility] Jun 07, 2014 09:25 AM QUIT TOBACCO USE 1-7 YEARS AGO [place] [facility] [place] [facility] November 30, 2013 08:44 AM QUIT TOBACCO USE IN [facility]ST [facility] [place] [facility] May 22, 2013 10:10 AM QUIT TOBACCO USE IN PAST YEAR [place] [facility] [place] [facility] December 01, 2012 01:54 PM QUIT TOBACCO USE IN PAST YEAR [place] [facility] [place] [place] [facility] Jun 07, 2012 08:16 AM V1-PT DECLINES TOBACCO CESSATION MEDS [place] [facility] [place] [place] [facility] Jun 07, 2012 08:16 AM V1-PT THINKING ABOUT QUIT TOBACCO USE [place] [facility] [place] [facility] Jan 05, 2012 09:00 AM CURRENT SMOKER intermittenly [place] [facility] [place] [facility] Jan 05, 2012 09:00 AM V1-PT DECLINES REF TO TOBACCO CESS PRGM [facility] [place] [facility] Jan 05, 2012 09:00 AM V1-PT DECLINES TOBACCO CESSATION MEDS [facility] [place] [facility] Jan 05, 2012 09:00 AM V1-PT THINKING ABOUT QUIT TOBACCO USE [facility] [place] [facility] Feb 17, 2011 09:52 AM V1-PT DECLINES TOBACCO CESSATION MEDS [facility] [place] [facility] Feb 17, 2011 09:52 AM V1-PT THINKING ABOUT QUIT TOBACCO USE [facility] [place] [facility] Aug 13, 2010 11:31 AM QUIT TOBACCO USE IN PAST YEAR [place] [facility] [place] [facility] Feb 19, 2010 01:26 PM QUIT TOBACCO USE IN PAST YEAR [place] [facility] [place] [facility] Sep 13, 2009 11:04 AM QUIT TOBACCO USE IN PAST YEAR [place] [facility] [place] [facility] Feb 05, 2009 08:29 AM V1-PT DECLINES REF TO TOBACCO CESS PR[facility] [place] [facility] Feb 05, 2009 08:29 AM V1-PT DECLINES TOBACCO CESSATION MEDS [facility] [place] [facility] Feb 05, 2009 08:29 AM V1-PT THINKING ABOUT QUIT TOBACCO USE [place] [facility] [place] [facility] Aug 22, 2008 09:04 AM QUIT TOBACCO USE IN PAST YEAR [place] [facility] [place] [facility] Mar 12, 2008 10:40 AM V1-PT DECLINES REF TO TOBACCO CESS PRGM [place] [facility] [place] [facility] Mar 12, 2008 10:40 AM V1-PT DECLINES TOBACCO CESSATION MEDS [place] [facility] [place] [facility] Mar 12, 2008 10:40 AM V1-PT NOT INTERESTED IN QUIT TOBACCO USE [place] [facility] [place] [facility] Mar 08, 2008 09:37 AM CURRENT SMOKER smokes one pack a day for about 10 years ago. [facility] [place] [facility] Encounter Notes: All associated encounter notes This section contains the clinical notes associated to the Encounter. Date/Time Encounter Note(s) Provider Source May 15, 2024 12:09 PM TELEPHONE ENCOUNTER NOTE: LOCAL TITLE: TELEPHONE NOTE/SPECIALTY CLINIC STANDARD TITLE: TELEPHONE ENCOUNTER NOTE DATE OF NOTE: MAY 15, 2024@12:09 ENTRY DATE: MAY 15, 2024@12:09:11 AUTHOR: LORI QUEVEDO COSIGNER: URGENCY: STATUS: COMPLETED Vet is requesting call back from provider today to discussissue with medication. Phone number on file confirmed. 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
--- OUTSIDE RECORDS SUMMARY | 2024-07-25 11:40 | XMS_ITS ---
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 Organization [place] Address [address] [place] [id number] Care Team Providers Care Ammunition And Explosives Handler Name Role Phone ROMANA CASTILLO Primary [...] [facility] (MEDICAID) [facility] May 14, 2009 [id number] SAMPLE,ROCCO MOORE PATIENT [facility]ID [facility] May 14, 2009 [id number] SAMPLE,ROCCO MOORE PATIENT MEDICAID MEDICAID [facility] [place] Jul 26, 2018 MEDICAI D [id number] SAMPLE,ROCCO MOORE PATIENT MEDICARE (WNR) MEDICARE (M) PART A November 24, 2015 PART A [id number] SAMPLE,ROCCO MOORE PATIENT MEDICARE (WNR) MEDICARE (M) PART B November 24, 2015 PART B [id number] ROCCO QUEZADA PATIENT Selected Encounter This section includes the information on record at CT for the Encounter. Date/Time Encounter Type Encounter Description Reason Provider Source May 16, 2024 01:26 PM Outpatient Encounter TELEPHONE PRIMARY CARE ICD-10-CM G89.4 Chronic pain syndrome GAL MADSEN Edwin Encounter Template Text not used by CT Assessments - Encounter Diagnoses This section includes the primary and secondary diagnoses documented for the Encounter. Date/Time Primary/Secondary Diagnosis Diagnosis Name Provider Source May 16, 2024 01:26 PM PRIMARY Chronic pain syndrome GAL MADSEN [facility] Plan of Treatment: Future Appointments (+ 6 months) and Future Tests (+/- 45 days) The Plan of Treatment section includes future care activities for the patient [facility] This section includes future appointments and future [...] 25, 2024 11:30 AM AMBULATORY - MEDICINE [facility] Jul 13, 2024 10:00 AM AMBULATORY - MEDICINE [facility] Aug 03, 2024 01:00 PM AMBULATORY - PSYCHIATRY [facility] Aug 24, 2024 11:00 AM AMBULATORY MEDICINE [facility] Sep 07, 2024 11:30 AM AMBULATORY MEDICINE [facility] Lab Results: +/- 30 [...] Range Comment May 16, 2024 04:03 PM [facility] METHADONE SCREEN Specimen Type: URINE Comment: BRISSA test are qualitative, any L or H flags only indicate a [place] alert was sent. Ordering Provider: RONAN MADSEN Report Released Date/Time: May 16, 2024 01:45 PM Reporting Lab: [facility] [address] [facility] [address] Performing Lab: [facility] [address] [facility] [address] METHADONE SCREEN None detected(Nega tive) L Negative May 16, 2024 04:03 PM [facility] ALCOHOL, ETHYL URINE PANEL Specimen [...] 16, 2024 01:45 PM Reporting Lab: [address] [address] Performing Lab: [address] [address] ALCOHOL, ETHYL URINE NONE-DETECTED mg/dL NONE-DETEC DHEERAJ, cutoff = 10 mg/dL PH, BRISSA 4.7 [pH] 4-10 CREATININE, BRISSA 76.90 mg/dL >20 SP.GRAVITY, BRISSA 1.015 1.00 3-1.02 0 May 16, 2024 04:03 PM [facility] AMPHETAMINES SCREEN PANEL Specimen Type: [...] 16, 2024 01:45 PM Reporting Lab: [address] [address] Performing Lab: [address] [address] AMPHETAMINES SCREEN NONE-DETECTED None-Detec dheeraj, Cutoff = 1000 ng/mL PH, BRISSA 4.7 [pH] 4-10 CREATININE, BRISSA 76.90 mg/dL >20 SP.GRAVITY, BRISSA 1.015 1.00 3-1.02 0 May 16, 2024 04:03 PM [facility] FENTANYL SCREEN PANEL Specimen Type: [...] 16, 2024 01:45 PM Reporting Lab: [address] [address] Performing Lab: [address] [address] FENTANYL SCREEN NONE-DETECTE D ng/mL Negative: Cutoff = 1.00 ng/mL PH, BRISSA 4.7 [pH] 4-10 CREATININE, BRISSA 76.33 mg/dL >20 SP.GRAVITY, BRISSA 1.015 1.00 3-1.02 0 May 16, 2024 04:03 PM [facility] BENZODIAZEPINES SCREEN PANEL Specimen Type: [...] 16, 2024 01:45 PM Reporting Lab: [address] [address] Performing Lab: [address] [address] BENZODIAZEPINES SCREEN POSITIVE HH None-Detec dheeraj, Cutoff = 200 ng/mL PH, BRISSA 4.7 [pH] 4-10 CREATININE, BRISSA 76.90 mg/dL >20 SP.GRAVITY, BRISSA 1.015 1.00 3-1.02 0 May 16, 2024 04:03 PM [facility] BUPRENORPHINE SCREEN PANEL Specimen Type: [...] 16, 2024 01:45 PM Reporting Lab: [address] [address] Performing Lab: [address] [address] BUPRENORPHINE (URINE) POSITIVE HH None Detected, Cutoff = 10.0 ng/mL PH, BRISSA 4.7 [pH] 4-10 CREATININE, BRISSA 76.90 mg/dL >20 SP.GRAVITY, BRISSA 1.015 1.00 3-1.02 0 May 16, 2024 04:03 PM [facility] CANNABINOIDS SCREEN PANEL Specimen Type: [...] 16, 2024 01:45 PM Reporting Lab: [address] [address] Performing Lab: [address] [address] CANNABINOIDS SCREEN NONE-DETECTED None-Detec dheeraj,Cutoff = 50 ng/mL PH, BRISSA 4.7 [pH] 4-10 CREATININE, BRISSA 76.90 mg/dL >20 SP.GRAVITY, BRISSA 1.015 1.00 3-1.02 0 May 16, 2024 04:03 PM [facility] COCAINE SCREEN PANEL Specimen Type: [...] 16, 2024 01:45 PM Reporting Lab: [address] [address] Performing Lab: [address] [address] COCAINE SCREEN NONE-DETECTED N one-Detec dheeraj,Cutoff = 300 ng/mL PH, BRISSA 4.7 [pH] 4-10 CREATININE, BRISSA 76.90 mg/dL >20 SP.GRAVITY, BRISSA 1.015 1.00 3-1.02 0 May 16, 2024 04:03 PM [facility] OPIATES SCREEN PANEL Specimen Type: [...] 16, 2024 01:45 PM Reporting Lab: [address] [address] Performing Lab: [address] [address] OPIATES SCREEN POSITIVE HH None- Detec dheeraj, Cutoff = 300 ng/mL PH, BRISSA 4.7 [pH] 4-10 CREATININE, BRISSA 76.90 mg/dL >20 SP.GRAVITY, BRISSA 1.015 1.00 3-1.02 0 May 16, 2024 04:03 PM [facility] OXYCODONE SCREEN PANEL Specimen Type: [...] 16, 2024 01:45 PM Reporting Lab: [address] [address] Performing Lab: [address] [address] OXYCODONE SCREEN POSITIVE HH Non e-Detec dheeraj, Cutoff = 100 ng/mL PH, BRISSA 4.7 [...] AM VA-TOBACCO QUIT 15 YRS OR MORE [facility] Tobacco Use History This section includes a history of the smoking, or tobacco-related health factors, that were collected on or before the date of the Encounter. The data comes from the [place] facility where the Encounter took place. Date/Time Smoking Status/Tobac co Use Comment Facility Mar 06, 2024 09:00 AM VA-TOBACCO QUIT [address] [facility] [place] [place] [facility] Mar 31, 2023 11:00 AM VA-TOBACCO FORMER USER CT [facility]TR [facility] [place] [facility] Mar 31, 2023 11:00 AM VA-TOBACCO QUIT 1 TO < [address] [facility] [place] [place] [facility] Mar 25, 2022 10:30 AM VA-TOBACCO NEVER USED CT CNTR [facility] [place] [facility] Mar 19, 2021 02:00 PM VA-TOBACCO FORMER USER CT CNTR [facility] [place] [facility] Mar 19, 2021 02:00 PM VA-TOBACCO QUIT < [address] [place] [facility] Sep 20, 2018 11:24 AM VA-TOBACCO USE DECLINED TO ANSWER CT [facility]TR [place] [place] [facility] Oct 21, 2017 08:13 AM QUIT TOBACCO USE IN PAST YEAR [place] [facility]TR [facility] [place] [facility] Dec 30, 2016 08:28 AM QUIT TOBACCO USE 1-[address] [facility] [place] [facility] Jun 04, 2016 08:43 AM QUIT TOBACCO USE 1-[address] [facility] [place] [place] [facility] May 17, 2015 08:45 AM QUIT TOBACCO USE 1-7 YEARS AGO quit [address] [facility] [place] [place] [facility] Jun 07, 2014 09:25 AM QUIT TOBACCO USE 1-[address] [facility] [place] [facility] November 30, 2013 08:44 AM QUIT TOBACCO USE IN PAST YEAR [place] [facility]TR [facility] [place] [facility] May 22, 2013 10:10 AM QUIT TOBACCO USE IN PAST YEAR [place] [facility] [place] [facility] December 01, 2012 01:54 PM QUIT TOBACCO USE IN PAST YEAR [place] [facility]TR [facility] [place] [facility] Jun 07, 2012 08:16 AM V1-PT DECLINES TOBACCO CESSATION MEDS CT [facility] [place] [facility] Jun 07, 2012 08:16 AM V1-PT THINKING ABOUT QUIT TOBACCO USE [facility] [place] [facility] Jan 05, 2012 09:00 AM CURRENT SMOKER [facility]itten[facility] [place] [facility] Jan 05, 2012 09:00 AM V1-PT DECLINES REF TO TOBACCO CESS [facility] [place] [facility] Jan 05, 2012 09:00 AM V1-PT DECLINES [facility] [place] [facility] Jan 05, 2012 09:00 AM V1-PT THINKING ABOUT QUIT TOBACCO USE [facility] [place] [place] [facility] Feb 17, 2011 09:52 AM V1-PT DECLINES TOBACCO CESSATION MEDS [facility] [place] [facility] Feb 17, 2011 09:52 AM V1-PT THINKING ABOUT QUIT TOBACCO USE CT [facility]TR [facility] [place] [facility] Aug 13, 2010 11:31 AM QUIT TOBACCO USE IN PAST YEAR [facility] [place] [facility] Feb 19, 2010 01:26 PM QUIT TOBACCO USE IN PAST YEAR CT [facility]TR [facility] [place] [facility] Sep 13, 2009 11:04 AM QUIT TOBACCO USE IN PAST YEAR [facility] [place] [facility] Feb 05, 2009 08:29 AM V1-PT DECLINES REF TO TOBACCO CESS [facility] [place] [facility] Feb 05, 2009 08:29 AM V1-PT DECLINES TOBACCO CESSATION MEDS [facility] Feb 05, 2009 08:29 AM V1-PT THINKING ABOUT QUIT TOBACCO USE CT [facility] [place] [facility] Aug 22, 2008 09:04 AM QUIT TOBACCO USE IN PAST YEAR CT [facility]TR [facility] [place] [facility] Mar 12, 2008 10:40 AM V1-PT DECLINES REF TO TOBACCO CESS PRGM CT [facility]TR [facility] [place] [facility] Mar 12, 2008 10:40 AM V1-PT DECLINES TOBACCO CESSATION MEDS CT [facility]TR [facility] [place] [facility] Mar 12, 2008 10:40 AM V1-PT NOT INTERESTED IN QUIT TOBACCO USE [facility] [place] [place] [facility] Mar 08, 2008 09:37 AM CURRENT SMOKER smokes one pack a day for about 10 years ago. [facility] Encounter Notes: All associated encounter [...] review controlled substances prescribed outside of the [place], and any additional information that may become available, as an important component of standard clinical care, and in accordance with [facility] policy. Patient information was shared with the PDMP [place]. Prescription(s) filled outside the [facility] in the last 90 days are noted. However, they do not raise significant safety concerns and do not influence the treatment plan at this time. none since 03/21 as previously noted. /divya/ Gal Madsen MD STAFF PHYSICIAN Signed: 05/16/2024 13:45 GAL MADSEN [facility] May 16, 2024 01:26 PM [facility]: LOCAL TITLE: PAIN CLINIC NOTE STANDARD TITLE: PAIN MEDICINE OUTPATIENT NOTE DATE OF NOTE: MAY 16, 2024@13:26 ENTRY DATE: MAY 16, 2024@13:26:37 AUTHOR: GAL MADSEN EXP COSIGNER: URGENCY: STATUS: COMPLETED Phone visit with patient. 17 minutes. She had been carrying all her meds with her in a [employer] bag, because of concern about meds getting [...] 3. UDS when she comes in to [facility] rx's. 4. f/u as scheduled on 05/25/24. /divya/ Gal Madsen MD STAFF PHYSICIAN Signed: 05/16/2024 13:[address] [facility]
--- OUTSIDE RECORDS SUMMARY | 2024-07-25 11:41 | XMS_ITS | Encounter Summary ---
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 Address [address] [place] [address] Care Team Providers Care Night Clerk Name Role Phone ROMANA CASTILLO Primary [...] Name Patient's Relationship to Policy Garcia [facility] (MEDICAID) [facility] May 14, 2009 [id number] SAMPLE,ROCCO MOORE PATIENT [facility]ID [facility] May 14, 2009 [id number] SAMPLE,ROCCO MOORE PATIENT MEDICAID MEDICAID [facility] Jul 26, 2018 MEDICAI D [id number] SAMPLE,ROCCO MOORE PATIENT MEDICARE (WNR) MEDICARE (M) PART A November 24, 2015 PART A [id number] SAMPLE,ROCCO MOORE PATIENT MEDICARE (WNR) MEDICARE (M) PART B November 24, 2015 PART B [id number] ROCCO QUEZADA PATIENT Selected Encounter This [...] 20 appointments. The data comes from all [facility]. Appointment Date/Time Appointment Type Appointme nt Facility Name May 25, 2024 11:30 AM AMBULATORY - MEDICINE [facility] Jul 13, 2024 10:00 AM AMBULATORY MEDICINE [facility] [place] [facility] Aug 03, 2024 01:00 PM [facility] Aug 24, 2024 11:00 AM AMBULATORY - MEDICINE [facility] N[place]L [place] [facility] Sep 07, 2024 11:30 AM AMBULATORY MEDICINE [facility] Active, Pending, and Scheduled Orders This section includes a listing of several types of active, pending, and scheduled orders, including clinic medications orders, diagnostic test orders, procedure orders and consult orders; where the start date of the order is 45 days before the date of the Encounter or 45 days after the date of theEncounter. The data comes from all [facility]. Test Date/Time Test Type Test Details Facility Name Jul 07, 2024 11:06 AM Consult Order PSYCHIATRI C MEDICATION BHIP/NHM OUTPT Cons Care Rep's [facility] Lab Results: +/- 30 days of [...] Range Comment May 16, 2024 04:03 PM [facility] METHADONE SCREEN Specimen Type: URINE Comment: BRISSA test are qualitative, any L or H flags only indicate a [facility] alert was sent. Ordering Provider: RONAN MADSEN Report Released Date/Time: May 16, 2024 01:45 PM Reporting Lab: [facility] [address] [facility] [address] Performing Lab: [facility] [address] [facility] [address] METHADONE SCREEN None detected(Nega tive) L Negative May 16, 2024 04:03 PM [facility] ALCOHOL, ETHYL URINE PANEL Specimen Type: URINE [...] May 16, 2024 01:45 PM Reporting Lab: [address] [address] Performing Lab: [address] [address] ALCOHOL, ETHYL URINE NONE-DETECTED mg/dL NONE-DETEC DIRK, cutoff = 10 mg/dL PH, BRISSA 4.7 [pH] 4-10 CREATININE, BRISSA 76.90 mg/dL >20 SP.GRAVITY, BRISSA 1.015 1.00 3-1.02 0 May 16, 2024 04:03 PM [facility] AMPHETAMINES SCREEN PANEL Specimen Type: URINE Comment: [...] May 16, 2024 01:45 PM Reporting Lab: [address] [address] Performing Lab: [address] [address] AMPHETAMINES SCREEN NONE-DETECTED None-Detec dirk, Cutoff = 1000 ng/mL PH, BRISSA 4.7 [pH] 4-10 CREATININE, BRISSA 76.90 mg/dL >20 SP.GRAVITY, BRISSA 1.015 1.00 3-1.02 0 May 16, 2024 04:03 PM [facility] BENZODIAZEPINES SCREEN PANEL Specimen Type: URINE Comment: [...] May 16, 2024 01:45 PM Reporting Lab: [address] [address] Performing Lab: [address] [address] BENZODIAZEPINES SCREEN POSITIVE HH None-Detec dirk, Cutoff = 200 ng/mL PH, BRISSA 4.7 [pH] 4-10 CREATININE, BRISSA 76.90 mg/dL >20 SP.GRAVITY, BRISSA 1.015 1.00 3-1.02 0 May 16, 2024 04:03 PM [facility] FENTANYL SCREEN PANEL Specimen Type: URINE Comment: [...] May 16, 2024 01:45 PM Reporting Lab: [address] [address] Performing Lab: [address] [address] FENTANYL SCREEN NONE-DETECTE D ng/mL Negative: Cutoff = 1.00 ng/mL PH, BRISSA 4.7 [pH] 4-10 CREATININE, BRISSA 76.33 mg/dL >20 SP.GRAVITY, BRISSA 1.015 1.00 3-1.02 0 May 16, 2024 04:03 PM [facility] BUPRENORPHINE SCREEN PANEL Specimen Type: URINE Comment: [...] May 16, 2024 01:45 PM Reporting Lab: [address] [address] Performing Lab: [address] [address] BUPRENORPHINE (URINE) POSITIVE HH None Detected, Cutoff = 10.0 ng/mL PH, BRISSA 4.7 [pH] 4-10 CREATININE, BRISSA 76.90 mg/dL >20 SP.GRAVITY, BRISSA 1.015 1.00 3-1.02 0 May 16, 2024 04:03 PM [facility] COCAINE SCREEN PANEL Specimen Type: URINE Comment: [...] May 16, 2024 01:45 PM Reporting Lab: [address] [address] Performing Lab: [address] [address] COCAINE SCREEN NONE-DETECTED N one-Detec dirk,Cutoff = 300 ng/mL PH, BRISSA 4.7 [pH] 4-10 CREATININE, BRISSA 76.90 mg/dL >20 SP.GRAVITY, BRISSA 1.015 1.00 3-1.02 0 May 16, 2024 04:03 PM [facility] OPIATES SCREEN PANEL Specimen Type: URINE Comment: [...] May 16, 2024 01:45 PM Reporting Lab: [address] [address] Performing Lab: [address] [address] OPIATES SCREEN POSITIVE HH None- Detec dirk, Cutoff = 300 ng/mL PH, BRISSA 4.7 [pH] 4-10 CREATININE, BRISSA 76.90 mg/dL >20 SP.GRAVITY, BRISSA 1.015 1.00 3-1.02 0 May 16, 2024 04:03 PM [facility] OXYCODONE SCREEN PANEL Specimen Type: URINE Comment: [...] May 16, 2024 01:45 PM Reporting Lab: [address] [address] Performing Lab: [address] [address] OXYCODONE SCREEN POSITIVE HH Non e-Detec dirk, Cutoff = 100 ng/mL PH, BRISSA 4.7 [pH] 4-10 CREATININE, BRISSA 76.90 mg/dL >20 SP.GRAVITY, BRISSA 1.015 1.00 3-1.02 0 May 16, 2024 04:03 PM [facility] CANNABINOIDS SCREEN PANEL Specimen Type: URINE Comment: [...] May 16, 2024 01:45 PM Reporting Lab: [address] [address] Performing Lab: [address] [address] CANNABINOIDS SCREEN NONE-DETECTED None-Detec dirk,Cutoff = 50 [...] 06, 2024 09:00 AM [place]-TOBACCO FORMER USER [place] [facility] Tobacco Use History This section includes a history of the smoking, or tobacco-related health factors, that were collected on or before the date of the Encounter. The data comes from the [place] facility where the Encounter took place. Date/Time Smoking Status/Tobac co Use Comment Facility Mar 06, 2024 09:00 AM [place]-TOBACCO QUIT 15 YRS OR MORE [place] [facility] Mar 31, 2023 11:00 AM VA-TOBACCO FORMER USER [place] [facility] Mar 31, 2023 11:00 AM VA-TOBACCO QUIT 1 TO < 5 YRS [place] [facility] [facility] Mar 25, 2022 10:30 AM VA-TOBACCO NEVER USED [place] [facility] Mar 19, 2021 02:00 PM VA-TOBACCO FORMER USER [place] [facility] Mar 19, 2021 02:00 PM VA-TOBACCO QUIT < 1 YEAR [place] [facility] [facility] Sep 20, 2018 11:24 AM VA-TOBACCO USE DECLINED TO ANSWER [place] [facility] Oct 21, 2017 08:13 AM QUIT TOBACCO USE IN PAST YEAR [place] [facility] Dec 30, 2016 08:28 AM QUIT TOBACCO USE 1-7 YEARS AGO [place] [facility] Jun 04, 2016 08:43 AM QUIT TOBACCO USE 1-7 YEARS AGO [place] [facility] May 17, 2015 08:45 AM QUIT TOBACCO USE 1-7 YEARS AGO quit 2 years ago. [place] [facility] Jun 07, 2014 09:25 AM QUIT TOBACCO USE 1-7 YEARS AGO [place] [facility] [facility] November 30, 2013 08:44 AM QUIT TOBACCO USE IN PAST YEAR [place] [facility] [facility] May 22, 2013 10:10 AM QUIT TOBACCO USE IN PAST YEAR [place] [facility] [facility] December 01, 2012 01:54 PM QUIT TOBACCO USE IN PAST YEAR [place] [facility] [place] [facility] Jun 07, 2012 08:16 AM V1-PT DECLINES TOBACCO CESSATION MEDS [facility] [place] [facility] Jun 07, 2012 08:16 AM V1-PT THINKING ABOUT QUIT TOBACCO USE [place] [facility] [place] [facility] Jan 05, 2012 09:00 AM CURRENT SMOKER intermittenly [place] [facility]TR [place] [facility] Jan 05, 2012 09:00 AM V1-PT DECLINES REF TO TOBACCO CESS PRGM [facility] [place] [facility] Jan 05, 2012 09:00 AM V1-PT DECLINES TOBACCO CESSATION MEDS [facility] [place] [facility] Jan 05, 2012 09:00 AM V1-PT THINKING ABOUT QUIT TOBACCO USE [place] [facility] [place] [facility] Feb 17, 2011 09:52 AM V1-PT DECLINES [facility]BACCO [facility]ESS[facility] [place] [facility] Feb 17, 2011 09:52 AM V1-PT THINKING ABOUT QUIT TOBACCO USE [place] [facility] [place] [facility] Aug 13, 2010 11:31 AM QUIT TOBACCO USE IN PAST YEAR [place] [facility] [place] [facility] Feb 19, 2010 01:26 PM QUIT TOBACCO USE IN PAST YEAR [place] [facility] [place] [facility] Sep 13, 2009 11:04 AM QUIT TOBACCO USE IN PAST YEAR [place] [facility] [place] [facility] Feb 05, 2009 08:29 AM V1-PT DECLINES REF TO [facility]ACCO CESS [facility] [place] [facility] Feb 05, 2009 08:29 AM V1-PT DECLINES TOBACCO CESSATION MEDS [facility] [place] [facility] Feb 05, 2009 08:29 AM V1-PT THINKING ABOUT QUIT TOBACCO USE [place] [facility] [place] [facility] Aug 22, 2008 09:04 AM QUIT TOBACCO USE IN PAST YEAR [place] [facility] [place] [facility] Mar 12, 2008 10:40 AM V1-PT DECLINES REF TO TOBACCO CESS PRGM [place] [facility] [place] [facility] Mar 12, 2008 10:40 AM V1-PT DECLINES TOBACCO CESSATION MEDS [facility] [place] [facility] Mar 12, 2008 10:40 AM V1-PT NOT INTERESTED IN QUIT TOBACCO USE [facility] Mar 08, 2008 09:37 AM CURRENT SMOKER smokes one pack a day for about 10 years ago. [facility] Encounter Notes: All associated encounter notes This section contains the clinical notes associated to the Encounter. Date/Time Encounter Note(s) Provider Source May 24, 2024 09:06 AM TELEPHONE ENCOUNTE R NOTE: LOCAL TITLE: TELEPHONE NOTE/SPECIALTY CLINIC STANDARD TITLE: TELEPHONE ENCOUNTER NOTE DATE OF NOTE: MAY 24, 2024@09:06 ENTRY DATE: MAY 24, 2024@09:06:54 AUTHOR: LORI QUEVEDO COSIGNER: URGENCY: STATUS: COMPLETED Called and spoke with pt to reminded them that they have a FTF appt with the Pain clinic on 05/25/2024 at 1130. Location was confirmed. /divya/ LORI QUEVEDO ADVANCED NETWORK ENGINEER Signed: 05/24/2024 09:07 LORI QUEVEDO [facility]
--- OUTSIDE RECORDS SUMMARY | 2024-07-25 11:41 | XMS_ITS | Encounter Summary ---
Author Name [facility] [place] Organization [facility] [place] Address [address] [place] [address] Care Team Providers Care Roller Bearing Inspector Name Role Phone ROMANA CASTILLO Primary [...] Garcia [facility] (MEDICAID) [facility] May 14, 2009 [id number] SAMPLE,ROCCO MOORE PATIENT [facility] MEDICAID [facility] May 14, 2009 [id number] SAMPLE,ROCCO MOORE PATIENT MEDICAID MEDICAID [facility] Jul 26, 2018 MEDICAI D [id number] SAMPLE,ROCCO MOORE PATIENT MEDICARE (WNR) MEDICARE (M) PART A November 24, 2015 PART A [id number] SAMPLE,ROCCO MOORE PATIENT MEDICARE (WNR) MEDICARE (M) PART B November 24, 2015 PART B [id number] ROCCO QUEZADA PATIENT Selected Encounter This [...] 25, 2024 11:30 AM AMBULATORY - MEDICINE [facility] Jul 13, 2024 10:00 AM AMBULATORY MEDICINE [facility] [place] [facility] Aug 03, 2024 01:00 PM AMBULATORY [facility] Aug 24, 2024 11:00 AM AMBULATORY - MEDICINE [facility] [place] [facility] Sep 07, 2024 11:30 AM AMBULATORY - MEDICINE [facility] NTR [facility] Lab Results: +/- 30 days of the [...] Range Comment May 16, 2024 04:03 PM [facility] METHADONE SCREEN Specimen Type: URINE Comment: BRISSA test are qualitative, any L or H flags only indicate a [place] alert was sent. Ordering Provider: RONAN MADSEN Report Released Date/Time: May 16, 2024 01:45 PM Reporting Lab: [facility] [address] [facility] [address] Performing Lab: [facility] [address] [facility] [address] METHADONE SCREEN None detected(Nega tive) L Negative May 16, 2024 04:03 PM [facility] ALCOHOL, ETHYL URINE PANEL Specimen Type: [...] 16, 2024 01:45 PM Reporting Lab: [address] [address] Performing Lab: [address] [address] ALCOHOL, ETHYL URINE NONE-DETECTED mg/dL NONE-DETEC DIRK, cutoff = 10 mg/dL PH, BRISSA 4.7 [pH] 4-10 CREATININE, BRISSA 76.90 mg/dL >20 SP.GRAVITY, BRISSA 1.015 1.00 3-1.02 0 May 16, 2024 04:03 PM [facility] AMPHETAMINES SCREEN PANEL Specimen Type: URINE [...] 16, 2024 01:45 PM Reporting Lab: [address] [address] Performing Lab: [address] [address] AMPHETAMINES SCREEN NONE-DETECTED None-Detec dirk, Cutoff = 1000 ng/mL PH, BRISSA 4.7 [pH] 4-10 CREATININE, BRISSA 76.90 mg/dL >20 SP.GRAVITY, BRISSA 1.015 1.00 3-1.02 0 May 16, 2024 04:03 PM [facility] FENTANYL SCREEN PANEL Specimen Type: URINE [...] 16, 2024 01:45 PM Reporting Lab: [address] [address] Performing Lab: [address] [address] FENTANYL SCREEN NONE-DETECTE D ng/mL Negative: Cutoff = 1.00 ng/mL PH, BRISSA 4.7 [pH] 4-10 CREATININE, BRISSA 76.33 mg/dL >20 SP.GRAVITY, BRISSA 1.015 1.00 3-1.02 0 May 16, 2024 04:03 PM [facility] BENZODIAZEPINES SCREEN PANEL Specimen Type: URINE [...] 16, 2024 01:45 PM Reporting Lab: [address] [address] Performing Lab: [address] [address] BENZODIAZEPINES SCREEN POSITIVE HH None-Detec dirk, Cutoff = 200 ng/mL PH, BRISSA 4.7 [pH] 4-10 CREATININE, BRISSA 76.90 mg/dL >20 SP.GRAVITY, BRISSA 1.015 1.00 3-1.02 0 May 16, 2024 04:03 PM [facility] CANNABINOIDS SCREEN PANEL Specimen Type: URINE [...] 16, 2024 01:45 PM Reporting Lab: [address] [address] Performing Lab: [address] [address] CANNABINOIDS SCREEN NONE-DETECTED None-Detec dirk,Cutoff = 50 ng/mL PH, BRISSA 4.7 [pH] 4-10 CREATININE, BRISSA 76.90 mg/dL >20 SP.GRAVITY, BRISSA 1.015 1.00 3-1.02 0 May 16, 2024 04:03 PM [facility] BUPRENORPHINE SCREEN PANEL Specimen Type: URINE [...] 16, 2024 01:45 PM Reporting Lab: [address] [address] Performing Lab: [address] [address] BUPRENORPHINE (URINE) POSITIVE HH None Detected, Cutoff = 10.0 ng/mL PH, BRISSA 4.7 [pH] 4-10 CREATININE, BRISSA 76.90 mg/dL >20 SP.GRAVITY, BRISSA 1.015 1.00 3-1.02 0 May 16, 2024 04:03 PM [facility] COCAINE SCREEN PANEL Specimen Type: URINE [...] 16, 2024 01:45 PM Reporting Lab: [address] [address] Performing Lab: [address] [address] COCAINE SCREEN NONE-DETECTED N one-Detec dirk,Cutoff = 300 ng/mL PH, BRISSA 4.7 [pH] 4-10 CREATININE, BRISSA 76.90 mg/dL >20 SP.GRAVITY, BRISSA 1.015 1.00 3-1.02 0 May 16, 2024 04:03 PM [facility] OPIATES SCREEN PANEL Specimen Type: URINE [...] 16, 2024 01:45 PM Reporting Lab: [address] [address] Performing Lab: [address] [address] OPIATES SCREEN POSITIVE HH None- Detec dirk, Cutoff = 300 ng/mL PH, BRISSA 4.7 [pH] 4-10 CREATININE, BRISSA 76.90 mg/dL >20 SP.GRAVITY, BRISSA 1.015 1.00 3-1.02 0 May 16, 2024 04:03 PM [facility] OXYCODONE SCREEN PANEL Specimen Type: URINE [...] 16, 2024 01:45 PM Reporting Lab: [address] [address] Performing Lab: [address] [address] OXYCODONE SCREEN POSITIVE Non e-Detec dirk, Cutoff [...] took place. Date/Time Current Smoking Status Comment [facility] Mar 06, 2024 09:00 AM [place]-TOBACCO QUIT 15 YRS OR MORE [facility] Tobacco Use History This section includes a history of the smoking, or tobacco-related health factors, that were collected on or before the date of the Encounter. The data comes from the [place] facility where the Encounter took place. Date/Time Smoking Status/Tobac co Use Comment Facility Mar 06, 2024 09:00 AM [place]-TOBACCO QUIT 15 YRS OR MORE [facility] [place] [facility] Mar 31, 2023 11:00 AM [place]-TOBACCO FORMER USER [place] [facility] [place] [facility] Mar 31, 2023 11:00 AM VA-TOBACCO QUIT 1 TO < 5 YRS [place] [facility] [place] [facility] Mar 25, 2022 10:30 AM VA-TOBACCO NEVER USED [place] [facility] [place] [facility] Mar 19, 2021 02:00 PM VA-TOBACCO FORMER USER [place] [facility] [place] [facility] Mar 19, 2021 02:00 PM VA-TOBACCO QUIT < 1 YEAR [place] [facility] [place] [facility] Sep 20, 2018 11:24 AM VA-TOBACCO USE DECLINED TO ANSWER [place] [facility] [place] [facility] Oct 21, 2017 08:13 AM QUIT TOBACCO USE IN PAST YEAR [place] [facility] [place] [facility] Dec 30, 2016 08:28 AM QUIT TOBACCO USE 1-7 YEARS AGO [place] [facility] [place] [facility] Jun 04, 2016 08:43 AM QUIT TOBACCO USE 1-7 YEARS AGO [place] [facility] [place] [facility] May 17, 2015 08:45 AM QUIT TOBACCO USE 1-7 YEARS AGO quit 2 years ago. [place] [facility] [place] [facility] Jun 07, 2014 09:25 AM QUIT TOBACCO USE 1-7 YEARS AGO [place] [facility] [place] [facility] November 30, 2013 08:44 AM QUIT TOBACCO USE IN PAST YEAR [place] [facility] [place] [facility] May 22, 2013 10:10 AM QUIT TOBACCO USE IN PAST YEAR [place] [facility] [place] [facility] December 01, 2012 01:54 PM QUIT TOBACCO USE IN PAST YEAR [place] [facility] [place] [facility] Jun 07, 2012 08:16 AM V1-PT DECLINES TOBACCO CESSATION MEDS [place] [facility] [place] [facility] Jun 07, 2012 08:16 AM V1-PT THINKING ABOUT QUIT TOBACCO USE [place] [facility] [place] [facility] Jan 05, 2012 09:00 AM CURRENT SMOKER intermittenly [place] [facility] [place] [facility] Jan 05, 2012 09:00 AM V1-PT DECLINES REF TO TOBACCO CESS PRGM [place] [facility] [place] [facility] Jan 05, 2012 09:00 AM V1-PT DECLINES TOBACCO CESSATION MEDS [facility] [place] [facility] Jan 05, 2012 09:00 AM V1-PT THINKING ABOUT QUIT TOBACCO USE [facility] [place] [facility] Feb 17, 2011 09:52 AM V1-PT DECLINES TOBACCO CESSATION MEDS [facility] [place] [facility] Feb 17, 2011 09:52 AM V1-PT THINKING ABOUT QUIT TOBACCO USE [facility] [place] [facility] Aug 13, 2010 11:31 AM QUIT TOBACCO USE IN PAST YEAR [facility] [place] [facility] Feb 19, 2010 01:26 PM QUIT TOBACCO USE IN PAST YEAR [place] [facility] [place] [facility] Sep 13, 2009 11:04 AM QUIT TOBACCO USE IN PAST YEAR [place] [facility] [place] [facility] Feb 05, 2009 08:29 AM V1-PT DECLINES REF TO TOBACCO CESS PRGM [facility] [facility] Feb 05, 2009 08:29 AM V1-PT DECLINES TOBACCO CESSATION MEDS [facility] [place] [facility] Feb 05, 2009 08:29 AM V1-PT THINKING ABOUT QUIT TOBACCO USE [place] [facility] [place] [facility] Aug 22, 2008 09:04 AM QUIT TOBACCO USE IN PAST YEAR [place] [facility] [place] [facility] Mar 12, 2008 10:40 AM V1-PT DECLINES REF TO TOBACCO CESS PRGM [facility] [place] [facility] Mar 12, 2008 10:40 AM V1-PT DECLINES TOBACCO CESSATION MEDS [facility] [facility] Mar 12, 2008 10:40 AM V1-PT NOT INTERESTED IN QUIT TOBACCO USE [place] [facility] [place] [facility] Mar 08, 2008 09:37 AM CURRENT SMOKER smokes one pack a day for about 10 years ago. [place] [facility] [place] [facility] Encounter Notes: All associated encounter notes This section contains the clinical notes associated to the Encounter. Date/Time Encounter Note(s) Provider Source May 19, 2024 12:00 AM NONVA NOTE: LOCAL TITLE: [facility] STANDARD TITLE: NONVA NOTE DATE OF NOTE: MAY 19, 2024 ENTRY DATE: JUN 19, 2024@11:21:32 AUTHOR: PHYLLIS RIDER EXP COSIGNER: URGENCY: STATUS: COMPLETED VistA Imaging - Scanned Document SCANNED DOCUMENT SIGNATURE NOT REQUIRED Electronically Filed: 06/19/2024 by: PHYLLIS TINOCO CN[facility]L W[facility]N [facility]
--- OUTSIDE RECORDS SUMMARY | 2024-07-25 11:41 | XMS_ITS | Encounter Summary ---
Author Name [facility] [place] Address [address] [place] [id number] Care Team Providers Care Stock Trader Name Role Phone ROMANA CASTILLO Primary Care [...] Garcia's Name Patient's Relationship to Policy Garcia [facility] (MEDICAID) [facility] May 14, 2009 [id number] SAMPLE,ROCCO MOORE PATIENT [facility] MEDICAID [facility] HUMAN [facility] May 14, 2009 [id number] SAMPLE,ROCCO MOORE PATIENT MEDICAID MEDICAID [facility] Jul 26, 2018 MEDICAI D [id number] SAMPLE,ROCCO MOORE PATIENT MEDICARE (WNR) MEDICARE (M) PART A November 24, 2015 PART A [id number] SAMPLE,ROCCO MOORE PATIENT MEDICARE (WNR) MEDICARE (M) PART B November 24, 2015 PART B [id number] ROCCO QUEZADA PATIENT Selected Encounter This [...] 25, 2024 11:30 AM AMBULATORY - MEDICINE [facility] Jul 13, 2024 10:00 AM AMBULATORY MEDICINE [facility] [place] [facility] Aug 03, 2024 01:00 PM [facility] Aug 24, 2024 11:00 AM AMBULATORY - MEDICINE [facility] [facility] Sep 07, 2024 11:30 AM AMBULATORY - MEDICINE [facility] Lab Results: +/- 30 days of [...] Range Comment May 16, 2024 04:03 PM [facility] METHADONE SCREEN Specimen Type: URINE Comment: BRISSA test are qualitative, any L or H flags only indicate a [place] alert was sent. Ordering Provider: RONAN MADSEN Report Released Date/Time: May 16, 2024 01:45 PM Reporting Lab: [facility] [address] [facility] [address] Performing Lab: [facility] [address] [facility] [address] METHADONE SCREEN None detected(Nega tive) L Negative May 16, 2024 04:03 PM [facility] AMPHETAMINES SCREEN PANEL Specimen Type: URINE [...] May 16, 2024 01:45 PM Reporting Lab: [address] [address] Performing Lab: [address] [address] AMPHETAMINES SCREEN NONE-DETECTED None-Detec dirk, Cutoff = 1000 ng/mL PH, BRISSA 4.7 [pH] 4-10 CREATININE, BRISSA 76.90 mg/dL >20 SP.GRAVITY, BRISSA 1.015 1.00 3-1.02 0 May 16, 2024 04:03 PM [facility] ALCOHOL, ETHYL URINE PANEL Specimen Type: [...] May 16, 2024 01:45 PM Reporting Lab: [address] [address] Performing Lab: [address] [address] ALCOHOL, ETHYL URINE NONE-DETECTED mg/dL NONE-DETEC DIRK, cutoff = 10 mg/dL PH, BRISSA 4.7 [pH] 4-10 CREATININE, BRISSA 76.90 mg/dL >20 SP.GRAVITY, BRISSA 1.015 1.00 3-1.02 0 May 16, 2024 04:03 PM [facility] FENTANYL SCREEN PANEL Specimen Type: URINE [...] May 16, 2024 01:45 PM Reporting Lab: [address] [address] Performing Lab: [address] [address] FENTANYL SCREEN NONE-DETECTE D ng/mL Negative: Cutoff = 1.00 ng/mL PH, BRISSA 4.7 [pH] 4-10 CREATININE, BRISSA 76.33 mg/dL >20 SP.GRAVITY, BRISSA 1.015 1.00 3-1.02 0 May 16, 2024 04:03 PM [facility] BENZODIAZEPINES SCREEN PANEL Specimen Type: URINE [...] May 16, 2024 01:45 PM Reporting Lab: [address] [address] Performing Lab: [address] [address] BENZODIAZEPINES SCREEN POSITIVE HH None-Detec dirk, Cutoff = 200 ng/mL PH, BRISSA 4.7 [pH] 4-10 CREATININE, BRISSA 76.90 mg/dL >20 SP.GRAVITY, BRISSA 1.015 1.00 3-1.02 0 May 16, 2024 04:03 PM [facility] CANNABINOIDS SCREEN PANEL Specimen Type: URINE [...] May 16, 2024 01:45 PM Reporting Lab: [address] [address] Performing Lab: [address] [address] CANNABINOIDS SCREEN NONE-DETECTED None-Detec dirk,Cutoff = 50 ng/mL PH, BRISSA 4.7 [pH] 4-10 CREATININE, BRISSA 76.90 mg/dL >20 SP.GRAVITY, BRISSA 1.015 1.00 3-1.02 0 May 16, 2024 04:03 PM [facility] BUPRENORPHINE SCREEN PANEL Specimen Type: URINE [...] May 16, 2024 01:45 PM Reporting Lab: [address] [address] Performing Lab: [address] [address] BUPRENORPHINE (URINE) POSITIVE HH None Detected, Cutoff = 10.0 ng/mL PH, BRISSA 4.7 [pH] 4-10 CREATININE, BRISSA 76.90 mg/dL >20 SP.GRAVITY, BRISSA 1.015 1.00 3-1.02 0 May 16, 2024 04:03 PM [facility] COCAINE SCREEN PANEL Specimen Type: URINE [...] May 16, 2024 01:45 PM Reporting Lab: [address] [address] Performing Lab: [address] [address] COCAINE SCREEN NONE-DETECTED N one-Detec dirk,Cutoff = 300 ng/mL PH, BRISSA 4.7 [pH] 4-10 CREATININE, BRISSA 76.90 mg/dL >20 SP.GRAVITY, BRISSA 1.015 1.00 3-1.02 0 May 16, 2024 04:03 PM [facility] OPIATES SCREEN PANEL Specimen Type: URINE [...] May 16, 2024 01:45 PM Reporting Lab: [address] [address] Performing Lab: [address] [address] OPIATES SCREEN POSITIVE HH None- Detec dirk, Cutoff = 300 ng/mL PH, BRISSA 4.7 [pH] 4-10 CREATININE, BRISSA 76.90 mg/dL >20 SP.GRAVITY, BRISSA 1.015 1.00 3-1.02 0 May 16, 2024 04:03 PM [facility] OXYCODONE SCREEN PANEL Specimen Type: URINE [...] May 16, 2024 01:45 PM Reporting Lab: [address] [address] Performing Lab: [address] [address] OXYCODONE SCREEN POSITIVE Non e-Detec dirk, Cutoff [...] Current Smoking Status Comment [facility] Mar 06, 2024 09:00 AM [place]-TOBACCO FORMER USER [facility] Tobacco Use History This section includes a history of the smoking, or tobacco-related health factors, that were collected on or before the date of the Encounter. The data comes from the [place] facility where the Encounter took place. Date/Time Smoking Status/Tobac co Use Comment Facility Mar 06, 2024 09:00 AM [place]-TOBACCO QUIT 15 YRS OR MORE [facility] [place] [facility] Mar 31, 2023 11:00 AM [place]-TOBACCO FORMER USER [place] [facility] [place] [facility] Mar 31, 2023 11:00 AM VA-TOBACCO QUIT 1 TO < 5 YRS [facility] [place] [facility] Mar 25, 2022 10:30 AM VA-TOBACCO NEVER USED [place] [facility] [place] [facility] Mar 19, 2021 02:00 PM VA-TOBACCO FORMER USER [place] [place] [facility] Mar 19, 2021 02:00 PM VA-TOBACCO QUIT < 1 YEAR [facility] [place] [facility] Sep 20, 2018 11:24 AM VA-TOBACCO USE DECLINED TO ANSWER [facility] [place] [facility] Oct 21, 2017 08:13 AM QUIT TOBACCO USE IN PAST YEAR [facility] [place] [facility] Dec 30, 2016 08:28 AM QUIT TOBACCO USE 1-7 YEARS AGO [facility] [place] [facility] Jun 04, 2016 08:43 AM QUIT TOBACCO USE 1-7 YEARS AGO [facility] [place] [facility] May 17, 2015 08:45 AM QUIT TOBACCO USE 1-7 YEARS AGO quit 2 years ago. [facility] [place] [facility] Jun 07, 2014 09:25 AM QUIT TOBACCO USE 1-7 YEARS AGO [facility] [place] [facility] November 30, 2013 08:44 AM QUIT [facility]ACCO [facility] [place] [facility] May 22, 2013 10:10 AM QUIT TOBACCO USE IN PAST YEAR [place] [place] [facility] December 01, 2012 01:54 PM QUIT TOBACCO USE IN PAST YEAR [facility] [place] [facility] Jun 07, 2012 08:16 AM V1-PT DECLINES TOBACCO CESSATION MEDS [facility] [place] [facility] Jun 07, 2012 08:16 AM V1-PT THINKING ABOUT QUIT TOBACCO USE [facility] [place] [facility] Jan 05, 2012 09:00 AM CURRENT SMOKER intermittenly [facility] [place] [facility] Jan 05, 2012 09:00 AM V1-PT DECLINES REF TO TOBACCO CESS PRGM [facility] [place] [facility] Jan 05, 2012 09:00 AM V1-PT DECLINES TOBACCO CESSATION MEDS [facility] [place] [facility] Jan 05, 2012 09:00 AM V1-PT THINKING ABOUT QUIT TOBACCO USE [facility] [place] [facility] Feb 17, 2011 09:52 AM V1-PT DECLINES TOBACCO CESSATION MEDS [facility] [place] [facility] Feb 17, 2011 09:52 AM V1-PT THINKING ABOUT QUIT TOBACCO USE [facility] [place] [facility] Aug 13, 2010 11:31 AM QUIT TOBACCO USE IN PAST YEAR [facility] [place] [facility] Feb 19, 2010 01:26 PM QUIT TOBACCO USE IN PAST YEAR [facility] [place] [facility] Sep 13, 2009 11:04 AM QUIT TOBACCO USE IN PAST YEAR [facility] [place] [facility] Feb 05, 2009 08:29 AM V1-PT DECLINES REF TO TOBACCO CESS PR[facility] [place] [facility] Feb 05, 2009 08:29 AM V1-PT DECLINES TOBACCO CESSATION MEDS [facility] [place] [facility] Feb 05, 2009 08:29 AM V1-PT THINKING ABOUT QUIT [facility]ACCO [facility] [place] [facility] Aug 22, 2008 09:04 AM QUIT TOBACCO USE IN PAST YEAR [facility] [place] [facility] Mar 12, 2008 10:40 AM V1-PT DECLINES REF TO TOBACCO CESS PRGM [facility] [place] [facility] Mar 12, 2008 10:40 AM V1-PT DECLINES TOBACCO CESSATION MEDS [facility] [place] [facility] Mar 12, 2008 10:40 AM V1-PT NOT INTERESTED IN QUIT TOBACCO USE [facility] [place] [facility] Mar 08, 2008 09:37 AM CURRENT SMOKER smokes one pack a day for about 10 years ago. [facility] [place] [facility] Encounter Notes: All associated encounter notes This section contains the clinical notes associated to the Encounter. Date/Time Encounter Note(s) Provider Source May 21, 2024 12:00 AM NONVA NOTE: LOCAL TITLE: NON-VA HOSPITALIZATIONS/ER STANDARD TITLE: NONVA NOTE DATE OF NOTE: MAY 21, 2024 ENTRY DATE: JUN 16, 2024@14:25:35 AUTHOR: DAYAN PAULINO EXP COSIGNER: URGENCY: STATUS: COMPLETED VistA Imaging - Scanned Document SCANNED DOCUMENT SIGNATURE NOT REQUIRED Electronically Filed: 06/16/2024 by: DAYAN PAULINO VASCULAR ULTRASOUND TECHNICIAN DAYAN PAULINO [place] [facility]
--- OUTSIDE RECORDS SUMMARY | 2024-07-25 11:41 | XMS_ITS ---
Author Name [facility] [place] Address [address] [place] [address] Care Team Providers Care Treatment Specialist Name Role Phone ROMANA CASTILLO Primary [...] to Policy Garcia [facility] (MEDICAID) MEDICAID [place] HUMAN [facility] May 14, 2009 [id number] SAMPLE,ROCCO MOORE PATIENT [facility]ICAID [facility] May 14, 2009 [id number] SAMPLE,ROCCO MOORE PATIENT MEDICAID MEDICAID [facility] [place] Jul 26, 2018 MEDICAI D [id number] SAMPLE,ROCCO MOORE PATIENT MEDICARE (WNR) MEDICARE (M) PART A November 24, 2015 PART A [id number] SAMPLE,ROCCO MOORE PATIENT MEDICARE (WNR) MEDICARE (M) PART B November 24, 2015 PART B [id number] SAMPLE,ROCCO MOORE PATIENT Selected Encounter This [...] 20 appointments. The data comes from all [facility] facilities. Appointment Date/Time Appointment Type Appointme nt Facility Name May 25, 2024 11:30 AM AMBULATORY - MEDICINE [facility] Jul 13, 2024 10:00 AM AMBULATORY MEDICINE [facility] [place] [facility] Aug 03, 2024 01:00 PM AMBULAT[facility] Aug 24, 2024 11:00 AM [facility]BUL[facility] - [facility] Sep 07, 2024 11:30 AM AMBULATORY MEDICINE [facility] Active, Pending, and Scheduled Orders This section includes a listing of several types of active, pending, and scheduled orders, including clinic medications orders, diagnostic test orders, procedure orders and consult orders; where the start date of the order is 45 days before the date of the Encounter or 45 days after the date of theEncounter. The data comes from all [facility]. Test Date/Time Test Type Test Details Facility Name Jul 07, 2024 11:06 AM Consult Order PSYCHIATRI C MEDICATION BHIP/NHM OUTPT Cons Tax Evaluator's Choice [facility] Lab Results: +/- 30 days of [...] Range Comment May 16, 2024 04:03 PM [facility] METHADONE SCREEN Specimen Type: URINE Comment: BRISSA test are qualitative, any L or H flags only indicate a [place] alert was sent. Ordering Provider: RONAN MADSEN Report Released Date/Time: May 16, 2024 01:45 PM Reporting Lab: [address] [address] Performing Lab: [facility] [address] [facility] [address] METHADONE SCREEN None detected(Nega tive) L Negative May 16, 2024 04:03 PM [facility] ALCOHOL, ETHYL URINE PANEL Specimen Type: [...] 16, 2024 01:45 PM Reporting Lab: [address] [address] Performing Lab: [address] [address] ALCOHOL, ETHYL URINE NONE-DETECTED mg/dL NONE-DETEC DHEERAJ, cutoff = 10 mg/dL PH, BRISSA 4.7 [pH] 4-10 CREATININE, BRISSA 76.90 mg/dL >20 SP.GRAVITY, BRISSA 1.015 1.00 3-1.02 0 May 16, 2024 04:03 PM [facility] AMPHETAMINES SCREEN PANEL Specimen Type: URINE [...] 16, 2024 01:45 PM Reporting Lab: [address] [address] Performing Lab: [address] [address] AMPHETAMINES SCREEN NONE-DETECTED None-Detec dheeraj, Cutoff = 1000 ng/mL PH, BRISSA 4.7 [pH] 4-10 CREATININE, BRISSA 76.90 mg/dL >20 SP.GRAVITY, BRISSA 1.015 1.00 3-1.02 0 May 16, 2024 04:03 PM [facility] BENZODIAZEPINES SCREEN PANEL Specimen Type: URINE [...] 16, 2024 01:45 PM Reporting Lab: [address] [address] Performing Lab: [address] [address] BENZODIAZEPINES SCREEN POSITIVE HH None-Detec dheeraj, Cutoff = 200 ng/mL PH, BRISSA 4.7 [pH] 4-10 CREATININE, BRISSA 76.90 mg/dL >20 SP.GRAVITY, BRISSA 1.015 1.00 3-1.02 0 May 16, 2024 04:03 PM [facility] FENTANYL SCREEN PANEL Specimen Type: URINE [...] 16, 2024 01:45 PM Reporting Lab: [address] [address] Performing Lab: [address] [address] FENTANYL SCREEN NONE-DETECTE D ng/mL Negative: Cutoff = 1.00 ng/mL PH, BRISSA 4.7 [pH] 4-10 CREATININE, BRISSA 76.33 mg/dL >20 SP.GRAVITY, BRISSA 1.015 1.00 3-1.02 0 May 16, 2024 04:03 PM [facility] BUPRENORPHINE SCREEN PANEL Specimen Type: URINE [...] 16, 2024 01:45 PM Reporting Lab: [address] [address] Performing Lab: [address] [address] BUPRENORPHINE (URINE) POSITIVE HH None Detected, Cutoff = 10.0 ng/mL PH, BRISSA 4.7 [pH] 4-10 CREATININE, BRISSA 76.90 mg/dL >20 SP.GRAVITY, BRISSA 1.015 1.00 3-1.02 0 May 16, 2024 04:03 PM [facility] COCAINE SCREEN PANEL Specimen Type: URINE [...] 16, 2024 01:45 PM Reporting Lab: [address] [address] Performing Lab: [address] [address] COCAINE SCREEN NONE-DETECTED N one-Detec dheeraj,Cutoff = 300 ng/mL PH, BRISSA 4.7 [pH] 4-10 CREATININE, BRISSA 76.90 mg/dL >20 SP.GRAVITY, BRISSA 1.015 1.00 3-1.02 0 May 16, 2024 04:03 PM [facility] CANNABINOIDS SCREEN PANEL Specimen Type: URINE [...] 16, 2024 01:45 PM Reporting Lab: [address] [address] Performing Lab: [address] [address] CANNABINOIDS SCREEN NONE-DETECTED None-Detec dheeraj,Cutoff = 50 ng/mL PH, BRISSA 4.7 [pH] 4-10 CREATININE, BRISSA 76.90 mg/dL >20 SP.GRAVITY, BRISSA 1.015 1.00 3-1.02 0 May 16, 2024 04:03 PM [facility] OPIATES SCREEN PANEL Specimen Type: URINE [...] 16, 2024 01:45 PM Reporting Lab: [address] [address] Performing Lab: [address] [address] OPIATES SCREEN POSITIVE HH None- Detec dheeraj, Cutoff = 300 ng/mL PH, BRISSA 4.7 [pH] 4-10 CREATININE, BRISSA 76.90 mg/dL >20 SP.GRAVITY, BRISSA 1.015 1.00 3-1.02 0 May 16, 2024 04:03 PM [facility] OXYCODONE SCREEN PANEL Specimen Type: URINE [...] 16, 2024 01:45 PM Reporting Lab: [address] [address] Performing Lab: [address] [address] OXYCODONE SCREEN POSITIVE HH Non e-Detec dheeraj, [...] place. Date/Time Current Smoking Status Comment [facility] it Mar 06, 2024 09:00 AM [place]TOBAC[place] FOR[place] US[place] [facility] [facility] Tobacco Use History This section includes a history of the smoking, or tobacco-related health factors, that were collected on or before the date of the Encounter. The data comes from the [place] facility where the Encounter took place. Date/Time Smoking Status/Tobac co Use Comment Facility Mar 06, 2024 09:00 AM VA-TOBACCO QUIT 15 YRS OR MORE [place] [facility] [facility] Mar 31, 2023 11:00 AM VA-TOBACCO FORMER USER [place] [facility] [facility] Mar 31, 2023 11:00 AM VA-TOBACCO QUIT 1 TO < 5 YRS [place] [facility] [place] [facility] Mar 25, 2022 10:30 AM VA-TOBACCO NEVER USED [place] [facility] [place] [facility] Mar 19, 2021 02:00 PM VA-TOBACCO FORMER USER [place] [facility] [place] [facility] Mar 19, 2021 02:00 PM VA-TOBACCO QUIT < 1 YEAR [place] [facility] [place] [facility] Sep 20, 2018 11:24 AM VA-TOBACCO USE DECLINED TO ANSWER [place] [facility] [place] [facility] Oct 21, 2017 08:13 AM QUIT TOBACCO USE IN PAST YEAR [place] [facility] [place] [facility] Dec 30, 2016 08:28 AM QUIT TOBACCO USE 1-7 YEARS AGO [place] [facility] [place] [facility] Jun 04, 2016 08:43 AM QUIT TOBACCO USE 1-7 YEARS AGO [facility] [place] [facility] May 17, 2015 08:45 AM QUIT TOBACCO USE 1-7 YEARS AGO quit 2 years ago. [place] [facility] [place] [facility] Jun 07, 2014 09:25 AM QUIT TOBACCO USE 1-7 YEARS AGO [facility] [place] [facility] November 30, 2013 08:44 AM QUIT TOBACCO USE IN PAST YEAR [place] [facility] [place] [facility] May 22, 2013 10:10 AM QUIT TOBACCO USE IN PAST YEAR [place] [facility] [place] [facility] December 01, 2012 01:54 PM QUIT TOBACCO USE IN PAST YEAR [facility] [place] [facility] Jun 07, 2012 08:16 AM V1-PT DECLINES TOBACCO CESSATION MEDS [facility] [place] [facility] Jun 07, 2012 08:16 AM V1-PT THINKING ABOUT QUIT TOBACCO USE [facility] [place] [facility] Jan 05, 2012 09:00 AM CURRENT SMOKER intermittenly [facility] [place] [facility] Jan 05, 2012 09:00 AM V1-PT DECLINES REF TO TOBACCO CESS PRGM [facility] [place] [facility] Jan 05, 2012 09:00 AM V1-PT DECLINES TOBACCO CESSATION MEDS [facility] [place] [facility] Jan 05, 2012 09:00 AM V1-PT THINKING ABOUT QUIT TOBACCO USE [facility] [place] [facility] Feb 17, 2011 09:52 AM V1-PT DECLINES TOBACCO CESSATION MEDS [facility] [place] [facility] Feb 17, 2011 09:52 AM V1-PT THINKING ABOUT QUIT TOBACCO USE [facility] [place] [facility] Aug 13, 2010 11:31 AM QUIT TOBACCO USE IN PAST YEAR [facility] [place] [facility] Feb 19, 2010 01:26 PM QUIT TOBACCO USE IN PAST YEAR [facility] [place] [facility] Sep 13, 2009 11:04 AM QUIT TOBACCO USE IN PAST YEAR [facility] [place] [facility] Feb 05, 2009 08:29 AM V1-PT DECLINES REF TO TOBACCO CESS PRGM [facility] [place] [facility] Feb 05, 2009 08:29 AM V1-PT DECLINES TOBACCO CESSATION MEDS [facility] [place] [facility] Feb 05, 2009 08:29 AM V1-PT THINKING ABOUT QUIT TOBACCO USE [facility] [place] [facility] Aug 22, 2008 09:04 AM QUIT TOBACCO USE IN PAST YEAR [facility] [place] [facility] Mar 12, 2008 10:40 AM V1-PT DECLINES REF TO TOBACCO CESS PRGM [facility] [place] [facility] Mar 12, 2008 10:40 AM V1-PT DECLINES TOBACCO CESSATION MEDS [facility] [place] [facility] Mar 12, 2008 10:40 AM V1-PT NOT INTERESTED IN QUIT TOBACCO USE [facility] Mar 08, 2008 09:37 AM CURRENT SMOKER smokes one pack a day for about 10 years ago. [facility] Encounter Notes: All associated encounter notes This section contains the clinical notes associated to the Encounter. Date/Time Encounter Note(s) Provider Source May 24, 2024 12:53 PM ADMINISTRATIVE NOTE: LOCAL TITLE: [facility]: SCHEDULING ADMINISTRATION STANDARD TITLE: ADMINISTRATIVE NOTE DATE OF NOTE: MAY 24, 2024@12:53:40 ENTRY DATE: MAY 24, 2024@12:53:41 AUTHOR: LEESA OSBORN EXP COSIGNER: URGENCY: STATUS: COMPLETED Patient Demographics Patient Name: REID QUEZADA Patient Primary Phone: [phone] Patient Primary Address: [address] [place] [id number] Patient : 1960 Patient Age: 64 Caller/Recipient Relation to Patient: Self Administrative Administrative Note Comments: Olga at [facility], calling to report patient refused start of care today and they will try tomorrow instead , can be reached at [phone]. IMPORTANT: This note was created by [facility] staff. Please do not alert the staff member by adding them as a signer for future communications. Alerts are not monitored by this user. /divya/ LEESA OSBORN VISN 1 [facility] Signed: 05/24/2024 12:53 Receipt Acknowledged By: 05/25/2024 10:27 /es/ OLGA GREEN, MSN, RN, CNL PRIMARY CARE TEAM NURSE 05/24/2024 12:54 /es/ Fabiola Hooker, logistics/shipper Staff Nurse LEESA OSBORN [facility]
--- OUTSIDE RECORDS SUMMARY | 2024-07-25 11:41 | XMS_ITS ---
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 Organization [place] Address [address] [place] [id number] Care Team Providers Care Electronic Integrated Systems Mechanic Name Role Phone ROMANA CASTILLO Primary [...] Name Patient's Relationship to Policy Garcia [facility] (MEDICAID) [facility] May 14, 2009 [id number] SAMPLE,ROCCO MOORE PATIENT [facility]ICAID [facility] May 14, 2009 [id number] SAMPLE,ROCCO MOORE PATIENT MEDICAID MEDICAID [facility] [place] Jul 26, 2018 MEDICAI D [id number] SAMPLE,ROCCO MOORE PATIENT MEDICARE (WNR) MEDICARE (M) PART A November 24, 2015 PART A [id number] SAMPLE,ROCCO MOORE PATIENT MEDICARE (WNR) MEDICARE (M) PART B November 24, 2015 PART B [id number] ROCCO QUEZADA PATIENT Selected Encounter This section includes the information on record at [place] for the Encounter. Date/Time Encounter Type Encounter Description Reason Pro vider Source Jun 20, 2024 11:30 AM Outpatient Encounter PAIN CLINIC [facility] Encounter Template Text not used by [place] Plan of Treatment: Future Appointments (+ 6 months) and Future Tests (+/- 45 days) The Plan of Treatment section includes future care activities for the patient from all [place] treatmentfacilities. This section includes future appointments and [...] 13, 2024 10:00 AM AMBULATORY - MEDICINE [facility] Aug 03, 2024 01:00 PM AMBULATORY - PSYCHIATRY [facility] Aug 24, 2024 11:00 AM AMBULATORY MEDICINE [facility] Sep 07, 2024 11:30 AM AMBULATORY MEDICINE [facility] Active, Pending, and Scheduled Orders This section includes a listing of several types of active, pending, and scheduled orders, including clinic medications orders, diagnostic test orders, procedure orders and consult orders; where the start date of the order is 45 days before the date of the Encounter or 45 days after the date of theEncounter. The data comes from all [facility]. Test Date/Time Test Type Test Details Facility Name Jul 07, 2024 11:06 AM Consult Order PSYCHIATRI C MEDICATION BHIP/NHM OUTPT Cons Complementary Health Therapists's Choice [facility] Social History: Smoking Status (Most current) [...] Rosana christian Mar 06, 2024 09:00 AM [place]-TOBACCO FORMER USER [facility] Tobacco Use History This section includes a history of the smoking, or tobacco-related health factors, that were collected on or before the date of the Encounter. The data comes from the [place] facility where the Encounter took place. Date/Time Smoking Status/Tobac co Use Comment Facility Mar 06, 2024 09:00 AM [place]-TOBACCO QUIT 15 YRS OR MORE [facility] [place] [facility] Mar 31, 2023 11:00 AM VA-TOBACCO FORMER USER [facility] [place] [facility] Mar 31, 2023 11:00 AM VA-TOBACCO QUIT 1 TO < 5 YRS [facility] [place] [facility] Mar 25, 2022 10:30 AM VA-TOBACCO NEVER USED [facility] [place] [facility] Mar 19, 2021 02:00 PM VA-TOBACCO FORMER USER [facility] [place] [facility] Mar 19, 2021 02:00 PM VA-TOBACCO QUIT < 1 YEAR [facility] [place] [facility] Sep 20, 2018 11:24 AM VA-TOBACCO USE DECLINED TO ANSWER [facility] [place] [facility] Oct 21, 2017 08:13 AM QUIT TOBACCO USE IN PAST YEAR [facility] [place] [facility] Dec 30, 2016 08:28 AM QUIT TOBACCO USE 1-7 YEARS AGO [facility] [place] [facility] Jun 04, 2016 08:43 AM QUIT TOBACCO USE 1-7 YEARS AGO [facility] [place] [facility] May 17, 2015 08:45 AM QUIT TOBACCO USE 1-7 YEARS AGO quit 2 years ago. [facility] [place] [facility] Jun 07, 2014 09:25 AM QUIT TOBACCO USE 1-7 YEARS AGO [facility] [place] [facility] November 30, 2013 08:44 AM QUIT TOBACCO USE IN PAST YEAR [facility] [place] [facility] May 22, 2013 10:10 AM QUIT TOBACCO USE IN PAST YEAR [facility] [place] [facility] December 01, 2012 01:54 PM QUIT TOBACCO USE IN PAST YEAR [facility] [place] [facility] Jun 07, 2012 08:16 AM V1-PT DECLINES TOBACCO CESSATION MEDS [facility] Jun 07, 2012 08:16 AM V1-PT THINKING ABOUT QUIT TOBACCO USE [facility] [place] [facility] Jan 05, 2012 09:00 AM [facility] [place] [facility] Jan 05, 2012 09:00 AM V1-PT DECLINES REF TO TOBACCO CESS PRGM [facility] [place] [facility] Jan 05, 2012 09:00 AM V1-PT DECLINES TOBACCO CESSATION MEDS [facility] [place] [facility] Jan 05, 2012 09:00 AM V1-PT THINKING ABOUT QUIT TOBACCO USE [facility] [place] [facility] Feb 17, 2011 09:52 AM V1-PT DECL[facility]ES [facility] [place] [facility] Feb 17, 2011 09:52 AM V1-PT THINKING ABOUT QUIT TOBACCO USE [facility] [place] [facility] Aug 13, 2010 11:31 AM QUIT TOBACCO USE [facility]ST [facility] [place] [facility] Feb 19, 2010 01:26 PM QUIT TOBACCO USE IN PAST YEAR [facility] [place] [facility] Sep 13, 2009 11:04 AM QUIT TOBACCO USE [facility]ST [facility] [place] [facility] Feb 05, 2009 08:29 AM V1-PT DECLINES REF TO TOBACCO CESS PRGM [facility] [place] [facility] Feb 05, 2009 08:29 AM V1-PT DECLINES TOBACCO CESSATION MEDS [facility] Feb 05, 2009 08:29 AM V1-PT THINKING ABOUT QUIT TOBACCO USE [facility] [place] [facility] Aug 22, 2008 09:04 AM QUIT TOBACCO USE IN PAST YEAR [facility] [place] [facility] Mar 12, 2008 10:40 AM V1-PT DECLINES REF TO TOBACCO CESS PRGM [facility] [place] [facility] Mar 12, 2008 10:40 AM V1-PT DECLINES TOBACCO CESSATION MEDS [facility] [place] [facility] Mar 12, 2008 10:40 AM V1-PT NOT INTERESTED IN QUIT TOBACCO USE [facility] [place] [facility] Mar 08, 2008 09:37 AM CURRENT SMOKER smokes one pack a day for about 10 years ago. [facility] Encounter Notes: All associated encounter notes This section contains the clinical notes associated to the Encounter. Date/Time Encounter Note(s) Provider Source Jun 15, 2024 02:45 PM ACCOUNTING OF DISC LOSURES NOTE: LOCAL TITLE: STATE PRESCRIPTION DRUG MONITORING PROGRAM STANDARD TITLE: ACCOUNTING OF DISCLOSURES NOTE DATE OF NOTE: JUN 15, 2024@14:45:42 ENTRY DATE: JUN 15, 2024@14:45:42 AUTHOR: GAL MADSEN EXP COSIGNER: URGENCY: STATUS: [...] information was shared with the PDMP [place]. Pres[facility] in [facility] last 90 days are noted. However, they do not raise significant safety concerns and do not influence the treatment plan at this time. Oxycodone 5 mg #15 filled by Meagan Farrar in [place] on 05/23/ Gal Madsen MD STAFF PHYSICIAN Signed: 06/15/2024 14:46 [facility]
--- OUTSIDE RECORDS SUMMARY | 2024-07-25 11:41 | XMS_ITS | Encounter Summary ---
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 Organization [place] Address [address] [place] [id number] Care Team Providers Care Specification Consultant Name Role Phone ROMANA CASTILLO Primary [...] Policy Garcia [facility] (MEDICAID) [facility] May 14, 2009 [id number] SAMPLE,ROCCO MOORE PATIENT [facility] May 14, 2009 [id number] SAMPLE,ROCCO MOORE PATIENT MEDICAID MEDICAID [facility] [place] Jul 26, 2018 MEDICAI D [id number] SAMPLE,ROCCO MOORE PATIENT MEDICARE (WNR) MEDICARE (M) PART A November 24, 2015 PART A [id number] SAMPLE,ROCCO MOORE PATIENT MEDICARE (WNR) MEDICARE (M) PART B November 24, 2015 PART B [id number] ROCCO QUEZADA PATIENT Selected Encounter This [...] AM AMBULATORY - MEDICINE [facility] Aug 03, 2024 01:00 PM AMBULATORY - PSYCHIATRY [facility] Aug 24, 2024 11:00 AM AMBULATORY MEDICINE [facility] Sep 07, 2024 11:30 AM AMBULATORY MEDICINE [facility] Active, Pending, and Scheduled Orders This [...] Order PSYCHIATRI C MEDICATION BHIP/NHM OUTPT Cons Chief Nursing Officer's Choice [facility] Social History: Smoking Status [...] Rosana christian Mar 06, 2024 09:00 AM [place] FORMER US[place] [facility] Tobacco Use History This section includes a history of the smoking, or tobacco-related health factors, that were collected on or before the date of the Encounter. The data comes from the [place] facility where the Encounter took place. Date/Time Smoking Status/Tobac co Use Comment Facility Mar 06, 2024 09:00 AM VA-TOBACCO QUIT 15 YRS OR MORE [place] [facility] [place] [facility] Mar 31, 2023 11:00 AM VA-TOBACCO FORMER USER [place] [facility] [place] [facility] Mar 31, 2023 11:00 AM VA-TOBACCO QUIT 1 TO < 5 YRS [place] [facility] [place] [facility] DECLINED TO ANSWER [place] [facility] [place] [facility] Oct 21, 2017 08:13 AM QUIT TOBACCO USE IN PAST YEAR [place] [facility] [place] [facility] Dec 30, 2016 08:28 AM QUIT TOBACCO USE 1-7 YEARS AGO [place] [facility] [facility] Jun 04, 2016 08:43 AM QUIT TOBACCO USE 1-7 YEARS AGO [place] [facility] [facility] May 17, 2015 08:45 AM QUIT TOBACCO USE 1-7 YEARS AGO quit 2 years ago. [place] [facility] [facility] Jun 07, 2014 09:25 AM QUIT TOBACCO USE 1-7 YEARS AGO [place] [facility] [facility] [...] DECLINES TOBACCO CESS[place]S [place] [facility] Jun 07, 2012 08:16 AM V1-PT THINKING ABOUT QUIT TOBACCO USE [facility] [place] [facility] Jan 05, 2012 09:00 AM [facility] [place] [facility] Jan 05, 2012 09:00 AM V1-PT DECLINES REF TO TOBACCO CESS PRGM [facility] [place] [facility] Jan 05, 2012 09:00 AM V1-PT DECLINES TOBACCO CESSATION MEDS [facility] [facility] Jan 05, 2012 09:00 AM V1-PT THINKING ABOUT QUIT TOBACCO USE [facility] [place] [place] [facility] Feb 17, 2011 09:52 AM V1-PT DECLINES [facility]AC[facility] [place] [facility] Feb 17, 2011 09:52 AM V1-PT THINKING ABOUT QUIT TOBACCO USE [place] [facility] [place] [facility] Aug 13, 2010 11:31 AM QUIT TOBACCO USE [facility]ST [facility] [place] [facility] Feb 19, 2010 01:26 PM QUIT TOBACCO USE IN PAST YEAR [place] [facility] [place] [facility] Sep 13, 2009 11:04 AM QUIT TOBACCO USE IN PAST [facility] [place] [facility] Feb 05, 2009 08:29 AM V1-PT DECLINES REF TO TOBACCO CESS PR[facility] [place] [facility] Feb 05, 2009 08:29 AM V1-PT DECLINES TOBACCO [facility]ESSATION [facility] Feb 05, 2009 08:29 AM V1-PT THINKING ABOUT QUIT TOBACCO USE [place] [facility] [place] [facility] Aug 22, 2008 09:04 AM QUIT TOBACCO USE IN PAST YEAR [place] [facility] [place] [facility] Mar 12, 2008 10:40 AM V1-PT DECLINES REF TO TOBACCO CESS PRGM [place] [facility] [facility] Mar 12, 2008 10:40 AM V1-PT DECLINES TOBACCO CESSATION MEDS [place] [facility] [place] [facility] Mar 12, 2008 10:40 AM V1-PT NOT INTERESTED IN QUIT TOBACCO USE [place] [facility] [place] [facility] Mar 08, 2008 09:37 AM CURRENT SMOKER smokes one pack a day for about 10 years ago. [place] [facility] [facility] [...] refill of oxycodone and would like to lease picker in [place].Vet r/s appt to 06/29/[address] Tavera She is going to run out Wednesday. Please advise phone # [phone] /isabella LOPEZ ADVANCED SUPERVISOR FILTER ASSEMBLY Signed: 06/15/2024 14:38 Receipt Acknowledged By: 06/15/2024 14:44 /divya/ Gal Tavera MD STAFF PHYSICIAN 06/15/2024 ADDENDUM STATUS: COMPLETED vet would like to lease picker Wednesday06/16/2024 in [place] /isabella LOPEZ ADVANCED SUPERVISOR FILTER ASSEMBLY Signed: 06/15/2024 14:39 06/15/2024 ADDENDUM STATUS: COMPLETED med ordered. /divya/ Gal Tavera MD STAFF PHYSICIAN Signed: 06/15/2024 14:46 06/15/2024 ADDENDUM STATUS: COMPLETED College Advisor LVM to let vet know med ordered and can lease picker 06/16/2024 /isabella LOPEZ ADVANCED SUPERVISOR FILTER ASSEMBLY Signed: 06/15/2024 15:15 BEULAH [facility]
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
--- OUTSIDE RECORDS SUMMARY | 2024-07-25 11:41 | XMS_ITS ---
Author Name [facility] [place] Organization [facility] [place] Address [address] [place] [address] Care Team Providers Care Journeyman Pressman Name Role Phone ROMANA CASTILLO Primary Care [...] [facility] (MEDICAID) [place]ICAID [place] DEPT HUMAN [facility] May 14, 2009 [id number] SAMPLE,ROCCO MOORE PATIENT [facility] May 14, 2009 [id number] SAMPLE,ROCCO MOORE PATIENT MEDICAID MEDICAID [facility] Jul 26, 2018 MEDICAI D [id number] SAMPLE,ROCCO MOORE PATIENT MEDICARE (WNR) MEDICARE (M) PART A November 24, 2015 PART A [id number] SAMPLE,ROCCO MOORE PATIENT MEDICARE (WNR) MEDICARE (M) PART B November 24, 2015 PART B [id number] SAMPLE,ROCCO MOORE PATIENT Selected Encounter This section includes the information on record at [place] for the Encounter. Date/Time Encounter Type Encounter Description Reason Pro vider Source May 30, 2024 09:07 AM Outpatient Encounter ADMIN PAT ACTIVTIES (MASNONCT) IHE Encounter Template Text not used by [place] Plan of Treatment: Future Appointments (+ 6 months) and Future Tests (+/- 45 days) The Plan of Treatment section includes future care activities for the patient from all [place] treatmentfacilities. This section includes future appointments and [...] 13, 2024 10:00 AM AMBULATORY - MEDICINE [facility] Aug 03, 2024 01:00 PM AMBULATORY - PSYCHIATRY [facility] Aug 24, 2024 11:00 AM AMBULATORY - MEDICINE [facility] Sep 07, 2024 11:30 AM AMBULATORY - MEDICINE [facility] Active, Pending, and Scheduled Orders This section includes a listing of several types of active, pending, and scheduled orders, including clinic medications orders, diagnostic test orders, procedure orders and consult orders; where the start date of the order is 45 days before the date of the Encounter or 45 days after the date of theEncounter. The data comes from all [facility]. Test Date/Time Test Type Test Details Facility Name Jul 07, 2024 11:06 AM Consult Order PSYCHIATRI C MEDICATION BHIP/NHM OUTPT Cons Proposal Writer's Choice [facility] Lab Results: +/- 30 days of [...] Range Comment May 16, 2024 04:03 PM [facility] METHADONE SCREEN Specimen Type: URINE Comment: BRISSA test are qualitative, any L or H flags only indicate a VA alert was sent. Ordering Provider: RONAN MADSEN Report Released Date/Time: May 16, 2024 01:45 PM Reporting Lab: [address] [address] Performing Lab: [facility] [address] [facility] [address] METHADONE SCREEN None detected(Nega tive) L Negative May 16, 2024 04:03 PM [facility] AMPHETAMINES SCREEN PANEL Specimen Type: URINE [...] May 16, 2024 01:45 PM Reporting Lab: [address] [address] Performing Lab: [address] [address] AMPHETAMINES SCREEN NONE-DETECTED None-Detec dirk, Cutoff = 1000 ng/mL PH, BRISSA 4.7 [pH] 4-10 CREATININE, BRISSA 76.90 mg/dL >20 SP.GRAVITY, BRISSA 1.015 1.00 3-1.02 0 May 16, 2024 04:03 PM [facility] ALCOHOL, ETHYL URINE PANEL Specimen Type: [...] May 16, 2024 01:45 PM Reporting Lab: [address] [address] Performing Lab: [address] [address] ALCOHOL, ETHYL URINE NONE-DETECTED mg/dL NONE-DETEC DIRK, cutoff = 10 mg/dL PH, BRISSA 4.7 [pH] 4-10 CREATININE, BRISSA 76.90 mg/dL >20 SP.GRAVITY, BRISSA 1.015 1.00 3-1.02 0 May 16, 2024 04:03 PM [facility] FENTANYL SCREEN PANEL Specimen Type: URINE [...] May 16, 2024 01:45 PM Reporting Lab: [address] [address] Performing Lab: [address] [address] FENTANYL SCREEN NONE-DETECTE D ng/mL Negative: Cutoff = 1.00 ng/mL PH, BRISSA 4.7 [pH] 4-10 CREATININE, BRISSA 76.33 mg/dL >20 SP.GRAVITY, BRISSA 1.015 1.00 3-1.02 0 May 16, 2024 04:03 PM [facility] BENZODIAZEPINES SCREEN PANEL Specimen Type: URINE [...] May 16, 2024 01:45 PM Reporting Lab: [address] [address] Performing Lab: [address] [address] BENZODIAZEPINES SCREEN POSITIVE HH None-Detec dirk, Cutoff = 200 ng/mL PH, BRISSA 4.7 [pH] 4-10 CREATININE, BRISSA 76.90 mg/dL >20 SP.GRAVITY, BRISSA 1.015 1.00 3-1.02 0 May 16, 2024 04:03 PM [facility] CANNABINOIDS SCREEN PANEL Specimen Type: URINE [...] May 16, 2024 01:45 PM Reporting Lab: [address] [address] Performing Lab: [address] [address] CANNABINOIDS SCREEN NONE-DETECTED None-Detec dirk,Cutoff = 50 ng/mL PH, BRISSA 4.7 [pH] 4-10 CREATININE, BRISSA 76.90 mg/dL >20 SP.GRAVITY, BRISSA 1.015 1.00 3-1.02 0 May 16, 2024 04:03 PM [facility] BUPRENORPHINE SCREEN PANEL Specimen Type: URINE [...] May 16, 2024 01:45 PM Reporting Lab: [address] [address] Performing Lab: [address] [address] BUPRENORPHINE (URINE) POSITIVE HH None Detected, Cutoff = 10.0 ng/mL PH, BRISSA 4.7 [pH] 4-10 CREATININE, BRISSA 76.90 mg/dL >20 SP.GRAVITY, BRISSA 1.015 1.00 3-1.02 0 May 16, 2024 04:03 PM [facility] COCAINE SCREEN PANEL Specimen Type: URINE [...] May 16, 2024 01:45 PM Reporting Lab: [address] [address] Performing Lab: [address] [address] COCAINE SCREEN NONE-DETECTED N one-Detec dirk,Cutoff = 300 ng/mL PH, BRISSA 4.7 [pH] 4-10 CREATININE, BRISSA 76.90 mg/dL >20 SP.GRAVITY, BRISSA 1.015 1.00 3-1.02 0 May 16, 2024 04:03 PM [facility] OPIATES SCREEN PANEL Specimen Type: URINE [...] May 16, 2024 01:45 PM Reporting Lab: [address] [address] Performing Lab: [address] [address] OPIATES SCREEN POSITIVE HH None- Detec dirk, Cutoff = 300 ng/mL PH, BRISSA 4.7 [pH] 4-10 CREATININE, BRISSA 76.90 mg/dL >20 SP.GRAVITY, BRISSA 1.015 1.00 3-1.02 0 May 16, 2024 04:03 PM [facility] OXYCODONE SCREEN PANEL Specimen Type: URINE [...] May 16, 2024 01:45 PM Reporting Lab: [address] [address] Performing Lab: [address] [address] OXYCODONE SCREEN POSITIVE Non e-Detec dirk, Cutoff [...] 06, 2024 09:00 AM VA-TOBACCO [facility] [place] [facility] Tobacco Use History This section includes a history of the smoking, or tobacco-related health factors, that were collected on or before the date of the Encounter. The data comes from the [place] facility where the Encounter took place. Date/Time Smoking Status/Tobac co Use Comment Facility Mar 06, 2024 09:00 AM VA-TOBACCO QUIT 15 YRS OR MORE [place] [facility] [place] [facility] Mar 31, 2023 11:00 AM VA-TOBACCO FORMER USER [place] [facility] [place] [facility] Mar 31, 2023 11:00 AM VA-TOBACCO QUIT 1 TO < 5 YRS [place] [facility] [place] [facility] Mar 25, 2022 10:30 AM VA-TOBACCO NEVER USED [place] [facility] [place] [facility] Mar 19, 2021 02:00 PM VA-TOBACCO FORMER USER [place] [facility] [place] [facility] Mar 19, 2021 02:00 PM VA-TOBACCO QUIT < 1 YEAR [place] [facility] [place] [facility] Sep 20, 2018 11:24 AM VA-TOBACCO USE DECLINED TO ANSWER [place] [facility] [place] [facility] Oct 21, 2017 08:13 AM QUIT TOBACCO USE IN PAST YEAR [place] [facility] [place] [facility] Dec 30, 2016 08:28 AM QUIT TOBACCO USE 1-7 YEARS AGO [place] [facility] [place] [facility] Jun 04, 2016 08:43 AM QUIT TOBACCO USE 1-7 YEARS AGO [place] [facility] [place] [facility] May 17, 2015 08:45 AM QUIT TOBACCO USE 1-7 YEARS AGO quit 2 years ago. [place] [facility] [place] [facility] Jun 07, 2014 09:25 AM QUIT TOBACCO USE 1-7 YEARS AGO [place] [facility] [place] [facility] November 30, 2013 08:44 AM QUIT TOBACCO USE IN PAST YEAR [place] [facility] [place] [facility] May 22, 2013 10:10 AM QUIT TOBACCO USE IN PAST YEAR [place] [facility] [place] [facility] December 01, 2012 01:54 PM QUIT TOBACCO USE IN PAST YEAR [place] [facility] [place] [facility] Jun 07, 2012 08:16 AM V1-PT DECLINES TOBACCO CESSATION MEDS [facility] [place] [facility] Jun 07, 2012 08:16 AM V1-PT THINKING ABOUT QUIT TOBACCO USE [facility] [place] [facility] Jan 05, 2012 09:00 AM CURRENT SMOKER intermittenly [facility] [place] [facility] Jan 05, 2012 09:00 AM V1-PT DECLINES REF TO TOBACCO CESS PRGM [facility] [place] [facility] Jan 05, 2012 09:00 AM V1-PT DECLINES TOBACCO CESSATION MEDS [facility] [place] [facility] Jan 05, 2012 09:00 AM V1-PT THINKING ABOUT QUIT TOBACCO USE [facility] [place] [facility] Feb 17, 2011 09:52 AM V1-PT DECLINES TOBACCO CESSATION MEDS [facility] [place] [facility] Feb 17, 2011 09:52 AM V1-PT THINKING ABOUT QUIT TOBACCO USE [facility] [place] [facility] Aug 13, 2010 11:31 AM QUIT TOBACCO USE IN PAST YEAR [facility] [place] [facility] Feb 19, 2010 01:26 PM QUIT TOBACCO USE IN PAST YEAR [place] [facility] [place] [facility] Sep 13, 2009 11:04 AM QUIT TOBACCO USE IN PAST YEAR [facility] [place] [facility] Feb 05, 2009 08:29 AM V1-PT DECLINES REF TO TOBACCO CESS PRGM [facility] [place] [facility] Feb 05, 2009 08:29 AM V1-PT DECLINES TOBACCO CESSATION MEDS [facility] [place] [facility] Feb 05, 2009 08:29 AM V1-PT THINKING ABOUT QUIT TOBACCO USE [facility] [place] [facility] Aug 22, 2008 09:04 AM QUIT TOBACCO USE IN PAST YEAR [facility] [place] [facility] Mar 12, 2008 10:40 AM V1-PT DECLINES REF TO TOBACCO CESS PRGM [facility] [place] [facility] Mar 12, 2008 10:40 AM V1-PT DECLINES TOBACCO CESSATION MEDS [facility] [place] [facility] Mar 12, 2008 10:40 AM V1-PT NOT INTERESTED IN QUIT TOBACCO USE [facility] [place] [facility] Mar 08, 2008 09:37 AM CURRENT SMOKER smokes one pack a day for about 10 years ago. [facility] Encounter Notes: All associated encounter notes [...] Patient Name: REID QUEZADA Patient Primary Phone: [phone] Patient Primary Address: [address] [place] [id number] Patient : 1960 Patient Age: 64 Call Back Number: [phone] Caller/Recipient Relation to Patient: Other If Other Describe Relation to Patient: [facility] Caller Name: Edith Administrative Administrative Note Reason: Home Health / Penitentiary Administrative Note Comments: Edith of [facility] requesting a call back REILLY from [facility] regarding critical lab findings. Edith can be reached at [phone] IMPORTANT: This note was created by [facility] Clinical Contact Center staff. Please do not alert the staff member by adding them as a signer for future communications. Alerts are not monitored by this user. /divya/ CALLUM LINO MSA Signed: 05/30/2024 09:07 Receipt Acknowledged By: 05/30/2024 11:46 /es/ VIKTOR BLOOD REGISTERED NURSE 05/30/2024 10:25 /es/ Fabiola Hooker RN Primary Care Staff Nurse 05/30/2024 ADDENDUM STATUS: COMPLETED I have called the above [facility] number x3- from my own phone and different phones- and the number does not connect at all. /divya/ Fabiola Hooker RN Primary Care Staff Nurse Signed: 05/30/2024 09:20 05/30/2024 ADDENDUM STATUS: COMPLETED Technical Publications Writer spoke with Edith from [facility]. Edith read back lab orders which indicated that a [facility] PCP ordered labs. Edith will update chart to reflect this. Umair has a critcal lab of 6.8 potassium. Edith will call [facility] PCP directly as well. This documentation writer did advise that Vet should go back to ER d/t just being recently dc'd from [facility] for acute renal failure and yperkalemia /es/ Fabiola Hooker, director of veterans affairs Staff Nurse Signed: 05/30/2024 10:29 CALLUM LINO [place] [facility]
--- OUTSIDE RECORDS SUMMARY | 2024-07-25 11:41 | XMS_ITS | Encounter Summary ---
Author Name [facility] [place] Organization [place] Address [address] [place] [address] Care Team Providers Care Oxyhydrogen Welder Name Role Phone ROMANA CASTILLO Primary [...] [facility] (MEDICAID) [facility] May 14, 2009 [id number] SAMPLE,ROCCO MOORE PATIENT [facility] MEDICAID [facility] HUMAN [facility] May 14, 2009 [id number] SAMPLE,ROCCO MOORE PATIENT MEDICAID MEDICAID [facility] Jul 26, 2018 MEDICAI D [id number] SAMPLE,ROCCO MOORE PATIENT MEDICARE (WNR) MEDICARE (M) PART A November 24, 2015 PART A [id number] SAMPLE,ROCCO MOORE PATIENT MEDICARE (WNR) MEDICARE (M) PART B November 24, 2015 PART B [id number] ROCCO QUEZADA PATIENT Selected Encounter This [...] 13, 2024 10:00 AM AMBULATORY - MEDICINE [facility] Aug 03, 2024 01:00 PM AMBULATORY - PSYCHIATRY [facility] Aug 24, 2024 11:00 AM AMBULATORY - MEDICINE [facility] Sep 07, 2024 11:30 AM AMBULATORY - MEDICINE [facility] Active, Pending, and Scheduled Orders This section includes a listing of several types of active, pending, and scheduled orders, including clinic medications orders, diagnostic test orders, procedure orders and consult orders; where the start date of the order is 45 days before the date of the Encounter or 45 days after the date of theEncounter. The data comes from all [facility]. Test Date/Time Test Type Test Details Facility Name Jul 07, 2024 11:06 AM Consult Order PSYCHIATRI C MEDICATION BHIP/NHM OUTPT Cons Hedge Fund Manager's Choice [facility] Lab Results: +/- 30 days of the [...] Range Comment May 16, 2024 04:03 PM [facility] METHADONE SCREEN Specimen Type: URINE Comment: BRISSA test are qualitative, any L or H flags only indicate a VA alert was sent. Ordering Provider: RONAN MADSEN Report Released Date/Time: May 16, 2024 01:45 PM Reporting Lab: [facility] [address] [facility] [address] Performing Lab: [facility] [address] [facility] [address] METHADONE SCREEN None detected(Nega tive) L Negative May 16, 2024 04:03 PM [facility] ALCOHOL, ETHYL URINE PANEL Specimen Type: URINE [...] 16, 2024 01:45 PM Reporting Lab: [address] [address] Performing Lab: [address] [address] ALCOHOL, ETHYL URINE NONE-DETECTED mg/dL NONE-DETEC DIRK, cutoff = 10 mg/dL PH, BRISSA 4.7 [pH] 4-10 CREATININE, BRISSA 76.90 mg/dL >20 SP.GRAVITY, BRISSA 1.015 1.00 3-1.02 0 May 16, 2024 04:03 PM [facility] AMPHETAMINES SCREEN PANEL Specimen Type: URINE Comment: [...] 16, 2024 01:45 PM Reporting Lab: [address] [address] Performing Lab: [address] [address] AMPHETAMINES SCREEN NONE-DETECTED None-Detec dirk, Cutoff = 1000 ng/mL PH, BRISSA 4.7 [pH] 4-10 CREATININE, BRISSA 76.90 mg/dL >20 SP.GRAVITY, BRISSA 1.015 1.00 3-1.02 0 May 16, 2024 04:03 PM [facility] BENZODIAZEPINES SCREEN PANEL Specimen Type: URINE Comment: [...] 16, 2024 01:45 PM Reporting Lab: [address] [address] Performing Lab: [address] [address] BENZODIAZEPINES SCREEN POSITIVE HH None-Detec dirk, Cutoff = 200 ng/mL PH, BRISSA 4.7 [pH] 4-10 CREATININE, BRISSA 76.90 mg/dL >20 SP.GRAVITY, BRISSA 1.015 1.00 3-1.02 0 May 16, 2024 04:03 PM [facility] FENTANYL SCREEN PANEL Specimen Type: URINE Comment: [...] 16, 2024 01:45 PM Reporting Lab: [address] [address] Performing Lab: [address] [address] FENTANYL SCREEN NONE-DETECTE D ng/mL Negative: Cutoff = 1.00 ng/mL PH, BRISSA 4.7 [pH] 4-10 CREATININE, BRISSA 76.33 mg/dL >20 SP.GRAVITY, BRISSA 1.015 1.00 3-1.02 0 May 16, 2024 04:03 PM [facility] BUPRENORPHINE SCREEN PANEL Specimen Type: URINE Comment: [...] 16, 2024 01:45 PM Reporting Lab: [address] [address] Performing Lab: [address] [address] BUPRENORPHINE (URINE) POSITIVE HH None Detected, Cutoff = 10.0 ng/mL PH, BRISSA 4.7 [pH] 4-10 CREATININE, BRISSA 76.90 mg/dL >20 SP.GRAVITY, BRISSA 1.015 1.00 3-1.02 0 May 16, 2024 04:03 PM [facility] COCAINE SCREEN PANEL Specimen Type: URINE Comment: [...] 16, 2024 01:45 PM Reporting Lab: [address] [address] Performing Lab: [address] [address] COCAINE SCREEN NONE-DETECTED N one-Detec dirk,Cutoff = 300 ng/mL PH, BRISSA 4.7 [pH] 4-10 CREATININE, BRISSA 76.90 mg/dL >20 SP.GRAVITY, BRISSA 1.015 1.00 3-1.02 0 May 16, 2024 04:03 PM [facility] OPIATES SCREEN PANEL Specimen Type: URINE Comment: [...] 16, 2024 01:45 PM Reporting Lab: [address] [address] Performing Lab: [address] [address] OPIATES SCREEN POSITIVE HH None- Detec dirk, Cutoff = 300 ng/mL PH, BRISSA 4.7 [pH] 4-10 CREATININE, BRISSA 76.90 mg/dL >20 SP.GRAVITY, BRISSA 1.015 1.00 3-1.02 0 May 16, 2024 04:03 PM [facility] OXYCODONE SCREEN PANEL Specimen Type: URINE Comment: [...] 16, 2024 01:45 PM Reporting Lab: [address] [address] Performing Lab: [address] [address] OXYCODONE SCREEN POSITIVE HH Non e-Detec dirk, Cutoff = 100 ng/mL PH, BRISSA 4.7 [pH] 4-10 CREATININE, BRISSA 76.90 mg/dL >20 SP.GRAVITY, BRISSA 1.015 1.00 3-1.02 0 May 16, 2024 04:03 PM [facility] CANNABINOIDS SCREEN PANEL Specimen Type: URINE Comment: [...] 16, 2024 01:45 PM Reporting Lab: [address] [address] Performing Lab: [address] [address] CANNABINOIDS SCREEN NONE-DETECTED None-Detec dirk,Cutoff = 50 [...] 06, 2024 09:00 AM VA-TOBACCO FORMER USER [facility] [place] [facility] Tobacco Use History This section includes a history of the smoking, or tobacco-related health factors, that were collected on or before the date of the Encounter. The data comes from the [place] facility where the Encounter took place. Date/Time Smoking Status/Tobac co Use Comment Facility Mar 06, 2024 09:00 AM VA-TOBACCO QUIT 15 YRS OR MORE [place] [facility] [place] [facility] Mar 31, 2023 11:00 AM VA-TOBACCO FORMER USER [place] [facility] [place] [facility] Mar 31, 2023 11:00 AM VA-TOBACCO QUIT 1 TO < 5 YRS [place] [facility] [place] [facility] Mar 25, 2022 10:30 AM VA-TOBACCO NEVER USED [place] [facility] [place] [facility] Mar 19, 2021 02:00 PM VA-TOBACCO FORMER USER [place] [facility] [place] [facility] Mar 19, 2021 02:00 PM VA-TOBACCO QUIT < 1 YEAR [place] [facility] [place] [facility] Sep 20, 2018 11:24 AM VA-TOBACCO USE DECLINED TO ANSWER [place] [facility] [place] [facility] Oct 21, 2017 08:13 AM QUIT TOBACCO USE IN PAST YEAR [place] [facility] [place] [facility] Dec 30, 2016 08:28 AM QUIT TOBACCO USE 1-7 YEARS AGO [place] [facility] [place] [facility] Jun 04, 2016 08:43 AM QUIT TOBACCO USE 1-7 YEARS AGO [facility] [place] [facility] May 17, 2015 08:45 AM QUIT TOBACCO USE 1-7 YEARS AGO quit 2 years ago. [facility] [place] [facility] Jun 07, 2014 09:25 AM QUIT TOBACCO USE 1-7 YEARS AGO [facility] [place] [facility] November 30, 2013 08:44 AM QUIT TOBACCO USE IN PAST YEAR [place] [facility] [place] [facility] May 22, 2013 10:10 AM QUIT TOBACCO USE IN PAST YEAR [facility] [place] [facility] December 01, 2012 01:54 PM QUIT TOBACCO USE IN PAST YEAR [facility] [place] [facility] Jun 07, 2012 08:16 AM V1-PT DECLINES TOBACCO CESSATION MEDS [facility] [place] [facility] Jun 07, 2012 08:16 AM V1-PT THINKING ABOUT QUIT TOBACCO USE [facility] [place] [facility] Jan 05, 2012 09:00 AM CURRENT SMOKER intermittenly [facility] [place] [facility] Jan 05, 2012 09:00 AM V1-PT DECLINES REF TO TOBACCO CESS PRGM [facility] [place] [facility] Jan 05, 2012 09:00 AM V1-PT DECLINES TOBACCO CESSATION MEDS [facility] [place] [facility] Jan 05, 2012 09:00 AM V1-PT THINKING ABOUT QUIT TOBACCO USE [facility] [place] [facility] Feb 17, 2011 09:52 AM V1-PT DECLINES TOBACCO CESSATION MEDS [facility] [place] [facility] Feb 17, 2011 09:52 AM V1-PT THINKING ABOUT QUIT TOBACCO USE [facility] [place] [facility] Aug 13, 2010 11:31 AM QUIT TOBACCO USE IN PAST YEAR [facility] [place] [facility] Feb 19, 2010 01:26 PM QUIT TOBACCO USE IN PAST YEAR [facility] [place] [facility] Sep 13, 2009 11:04 AM QUIT TOBACCO USE IN PAST YEAR [facility] [place] [facility] Feb 05, 2009 08:29 AM V1-PT DECLINES [facility] [place] [facility] Feb 05, 2009 08:29 AM V1-PT DECLINES TOBACCO CESSATION MEDS [facility] [place] [facility] Feb 05, 2009 08:29 AM V1-PT THINKING ABOUT QUIT TOBACCO USE [facility] [place] [facility] Aug 22, 2008 09:04 AM QUIT TOBACCO USE IN PAST YEAR [facility] [place] [facility] Mar 12, 2008 10:40 AM V1-PT DECLINES REF TO TOBACCO CESS PRGM [facility] [place] [facility] Mar 12, 2008 10:40 AM V1-PT DECLINES TOBACCO CESSATION MEDS [facility] [place] [facility] Mar 12, 2008 10:40 AM V1-PT NOT INTERESTED IN QUIT TOBACCO USE [facility] [place] [facility] Mar 08, 2008 09:37 AM CURRENT SMOKER smokes one pack a day for about 10 years ago. [facility] Encounter Notes: All associated encounter notes This [...] REQUIRED Electronically Filed: 06/08/2024 by: GAVIN WILLIS [facility]
--- OUTSIDE RECORDS SUMMARY | 2024-07-25 11:42 | XMS_ITS | Continuity of Care Document ---
Author Organization [place] - [facility], [facility] 3rd floor Address [address] [place] [address] Care Team Providers Care Deputy Controller Name Role Phone [facility] Primary Care Pro vider Assessment Encounter Date [...] weeks or sooner if any flare-ups occur. [email or web address] Not available 06/07/2024 22:37:13 Plan of Treatment [...] Address Organization Details Recorded Time No complaints [id number] Active Status : 'A'; Not Available [facility] 4 09:21:30 Chronic osteomyeli tis of femur 133258769 Active 2023 Katina Mills MD [address], [place], [address] , 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 4 11:52:00 Open wound of thigh 015385350 Active 2023 Katina Mills MD [address], [place], [address] , [facility] 4 16:45:16 Infection AND/OR inflammato ry reaction due to internal prosthetic device, implant AND/OR graft 81401736 Active 2023 Katina Mills MD [address], [place], [address] , [facility] 4 16:45:24 Thigh pain 03353748 Active 2023 JOHN COMFORTE null, [facility] 4 13:29:20 Thigh pain 68997677 Active 2023 JOHN COMFORTE null, [facility] 4 13:29:34 Pain of right thigh 1793557178912 07 Active 2023 JOHN COMFORTE null, [facility] 4 13:30:16 Problem Notes None recorded. Medical Equipment None Reported. Allergies Allergen ID Allergen Name Allergen Category Reaction Reaction Severity Criticality Documentation Date Start Date Code Code System Note Provider Name and Address Organization Details Recorded Time 63030 morphine sulfate medicatio n Not available Not available Not available 09/27/20231 52144 RxNorm Not Available [facility] 4 12:45:16 Medications Name Sig Start Date [...] Updated DateTime 06/01/2024 156.21 cm 50.2 kg/m2 197039.94 g VIKTOR DIAZ [place] - [facility] 06/01/2024 14:26:08 Social History None recorded. Functional Status None recorded. Mental Status None recorded. Family History Nothing Reported. Medical History Condition Response Allergies/Hayfever Y Coronary Artery Disease N Anxiety/Depression Y Breathing or lung disorders Y Emphysema N Nerve Disorders N Thyroid Problems N COPD Y Pacemaker N Anemia N Kidney/Bladder Problems N Vascular Disease N Heart Trouble Y Heart Attack ([place]) N Gastrointestinal Disease Y Cholesterol N Diabetes N Autoimmune disease Y Inflammatory Joint disease N Bleeding Disorder N Orthotics N Arthritis Y Seizures/Epilepsy N Blood Clot N AIDS/HIV N Congestive Heart Failure (CHF) N Acid Reflux (GERD) Y Cancer N Stroke N Asthma N Peripheral Vascular Disease Y Sleep Apnea Y Hepatitis Y Heart Disease N Rheumatoid Arthritis N Arrhythmia Y Pulmonary Embolism N Headaches N Fibromyalgia N Hypertension Y Osteoporosis N Gynecological HistoryNo gynecological history recorded. Obstetrics History GPAL:G 0 P 0 0 0 0 Past Encounters Encounter ID Performer Location Encounter Start Date Encounter Closed Date Diagnosis/Indication Diagnosis SNOMED-CT Code Diagnosis ICD10 Code [id number] MD Cristina Ambrose 3rd floor [address] [place] [address] 06/01/2024 14:12:22 06/20/2024 09:07:48 Chronic osteomyelitis of right femur 8394734808 592264 M86.651 Chronic os teomyelitis of femur with draining sinus 1522233798 06713 M86.451 Health Concerns Section Related Observation LastModified by Organization Detai ls LastModified Time None Recorded Concern Status LastModified by Organization Details LastModified Time None Recorded Payers Encounter Date Sequence Insurance Name Policy Number Policy Garcia Covered Member ID Garcia Member ID Guarantor Name 06/01/2024 1 [place]ICARE B-[place]: [employer] [facility] [place] [id number] [place] 06/01/2024 2 [place] [facility] [place] [id number] [place] OBGyn Episode No OBEpisode recorded.
--- OUTSIDE RECORDS SUMMARY | 2024-07-25 11:42 | XMS_ITS | Encounter Summary ---
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 [facility] [place] Address [address] [place] [address] Care Team Providers Care President Ceo & Founder Name Role Phone ROMANA CASTILLO Primary Care [...] Garcia's Name Patient's Relationship to Policy Garcia [facility] (MEDICAID) [facility]ICAID [facility] May 14, 2009 [id number] S[place] MOORE PATIENT [facility] MEDICAID [facility] May 14, 2009 [id number] S[place] MOORE PATIENT MEDICAID MEDICAID [facility] [place] Jul 26, 2018 MEDICAI D [id number] SAMPLE,[place] MOORE PATIENT MEDICARE (WNR) MEDICARE (M) PART A November 24, 2015 PART A [id number] [phone] S[place] MOORE PATIENT MEDICARE (WNR) MEDICARE (M) PART B November 24, 2015 PART B [id number] [place] PATIENT Selected Encounter This section includes the information on record at [place] for the Encounter. Date/Time Encounter Type Encounter Description Reason Pro vider Source Jul 25, 2024 10:11 AM Outpatient Encounter TELEPHONE PRIMARY CARE IHE [...] Appointment Type Appointme nt Facility Name Aug 03, 2024 01:00 PM AMBULATORY - PSYCHIATRY [facility] Aug 24, 2024 11:00 AM AMBULATORY - MEDICINE [facility] Sep 07, 2024 11:30 AM AMBULATORY - MEDICINE [facility] Active, Pending, and Scheduled Orders This section includes a listing of several types of active, pending, and scheduled orders, including clinic medications orders, diagnostic test orders, procedure orders and consult orders; where the start date of the order is 45 days before the date of the Encounter or 45 days after the date of theEncounter. The data comes from all [facility]. Test Date/Time Test Type Test Details Facility Name Jul 07, 2024 11:06 AM Consult Order PSYCHIATRI C MEDICATION BHIP/NHM OUTPT Cons Eye Physician's Choice [facility] Social History: Smoking Status (Most current) [...] place. Date/Time Current Smoking Status Comment Facil gino Mar 06, 2024 09:00 AM [place]-TOBACCO QUIT 15 YRS OR MORE [facility] Tobacco Use History This section includes a history of the smoking, or tobacco-related health factors, that were collected on or before the date of the Encounter. The data comes from the [place] facility where the Encounter took place. Date/Time Smoking Status/Tobac co Use Comment Facility Mar 06, 2024 09:00 AM [place]-TOBACCO QUIT 15 YRS OR MORE [facility] [place] [facility] Mar 31, 2023 11:00 AM VA-TOBACCO FORMER USER [facility] [place] [facility] Mar 31, 2023 11:00 AM VA-TOBACCO QUIT 1 TO < 5 YRS [facility] [place] [facility] Mar 25, 2022 10:30 AM VA-TOBACCO NEVER USED [facility] [place] [facility] Mar 19, 2021 02:00 PM VA-TOBACCO FORMER USER [facility] [place] [facility] Mar 19, 2021 02:00 PM VA-TOBACCO QUIT < 1 YEAR [facility] [place] [facility] Sep 20, 2018 11:24 AM VA-TOBACCO USE DECLINED TO ANSWER [facility] [place] [facility] Oct 21, 2017 08:13 AM QUIT TOBACCO USE IN PAST YEAR [facility] [place] [facility] Dec 30, 2016 08:28 AM QUIT TOBACCO USE 1-7 YEARS AGO [facility] [place] [facility] Jun 04, 2016 08:43 AM QUIT TOBACCO USE 1-7 YEARS AGO [facility] [place] [facility] May 17, 2015 08:45 AM QUIT TOBACCO USE 1-7 YEARS AGO quit 2 years ago. [facility] [place] [facility] Jun 07, 2014 09:25 AM QUIT TOBACCO USE 1-7 YEARS AGO [facility] [place] [facility] November 30, 2013 08:44 AM QUIT TOBACCO USE IN PAST YEAR [facility] [place] [facility] May 22, 2013 10:10 AM QUIT TOBACCO USE IN PAST YEAR [facility] [place] [facility] December 01, 2012 01:54 PM QUIT TOBACCO USE IN PAST YEAR [facility] [place] [facility] Jun 07, 2012 08:16 AM V1-PT DECLINES TOBACCO CESSATION MEDS [facility] [place] [facility] Jun 07, 2012 08:16 AM V1-PT THINKING ABOUT QUIT TOBACCO USE [facility] [place] [facility] Jan 05, 2012 09:00 AM [facility] [place] [facility] Jan 05, 2012 09:00 AM V1-PT DECLINES REF TO TOBACCO CESS PRGM [facility] [place] [facility] Jan 05, 2012 09:00 AM V1-PT DECLINES TOBACCO CESSATION MEDS [facility] [place] [facility] Jan 05, 2012 09:00 AM V1-PT THINKING ABOUT QUIT TOBACCO USE [facility] [place] [facility] Feb 17, 2011 09:52 AM V1-PT DECLINES TOBACCO CESSATION MEDS [facility] [place] [facility] Feb 17, 2011 09:52 AM V1-PT THINKING ABOUT QUIT TOBACCO USE [facility] [place] [facility] Aug 13, 2010 11:31 AM QUIT TOBACCO USE [facility] [place] [facility] Feb 19, 2010 01:26 PM QUIT TOBACCO USE IN PAST [facility]AR [facility] [place] [facility] Sep 13, 2009 11:04 AM QUIT TOBACCO USE IN PAST [facility]AR [facility] [place] [facility] Feb 05, 2009 08:29 AM V1-PT DECLINES REF TO TOBACCO CESS [facility] [place] [facility] Feb 05, 2009 08:29 AM V1-PT DECLINES TOBACCO CESSATION MEDS [facility] [place] [facility] Feb 05, 2009 08:29 AM V1-PT THINKING ABOUT QUIT TOBACCO USE [facility] [place] [facility] Aug 22, 2008 09:04 AM QUIT TOBACCO USE IN PAST YEAR [facility] [place] [facility] Mar 12, 2008 10:40 AM V1-PT DECLINES REF TO TOBACCO CESS PRGM [facility] [place] [facility] Mar 12, 2008 10:40 AM V1-PT DECLINES TOBACCO CESSATION MEDS [facility] [place] [facility] Mar 12, 2008 10:40 AM V1-PT NOT INTERESTED IN QUIT TOBACCO USE [facility] [place] [facility] Mar 08, 2008 09:37 AM CURRENT SMOKER smokes one pack a day for about 10 years ago. [facility]
--- OUTSIDE RECORDS SUMMARY | 2024-07-25 11:42 | XMS_ITS | Data Portability ---
Author Organization [facility], Main Office Address [address] [place] [address] Care Team Providers Care Inside Sales Coordinator Name Role Phone DAY () OTHER [phone] Assessment Encounter Date Assessment Date Assessment LastModified by Organization Details LastModified Time 03/30/2019 03/30/2019 03/28/19 Na 143, K 4.9, BUN 21, Raw Finish Mill Operator 0.75-in hospital [email or web address] Not available 03/30/2019 11:50:52 04/03/2019 04/03/2019 03/31/19 WBC 16.2, Hgb 11.3, Hct 37.9, Plt 190, Na 144, K 3.7, BUN 23, Raw Finish Mill Operator 0.69, C02 42 [email or web address] Not available 04/03/2019 [...] By Organization Details Last Modified Time 03/31/2019 55281 wound care team to evaluate leg wound [email or web address] Not available 03/31/2019 12:48:10 Reason for Referral None Reported. Problems Name Problem SNOMED Code Status Onset Date Resolution Date Notes Provider Name and Address Organization Details Recorded Time Kghom-gp-hgt onic respiratory failure 78329771 Active 2018 bipap setting 16/7.9 and 5 liters of oxygen ANDREI HUTCHINSON [address], [address], [place], [address], [facility] [employer] 9 11:54:07 Chronic obstructive pulmonary disease 72065603 Active 2018 NUBIA SHINEKI ANDREI [address], [address], [place], [address], [facility] 9 11:43:00 Smoker 62072154 Active 2018 NUBIA DALTONAMYP [address], [place], [address], [place] - [facility] 9 11:43:06 Bacteremia 0099987 Active 2018 NUBIA DALTON ANDREI [address], [place], [address], [place] - [facility] 9 11:45:37 Crohn's disease 35707680 Active 2018 ANDREI HUTCHINSON [address], [place], [address], [place] - [facility] 9 11:46:44 Chronic hepatitis C 475277666 Active 2018 ANDREI HUTCHINSON [address], [place], [address], [facility] 9 11:47:00 Asthma 385652035 Active 2018 ANDREI HUTCHINSON [address], [place], [address], [facility] 9 11:47:20 Chronic pain 98946212 Active 2018 ANDREI HUTCHINSON [address], [place], [address], [facility] 9 11:47:51 Venous stasis 76275976 Active 2018 ANDREI HUTCHINSON [address], [place], [address], [place] - [facility] 9 11:48:13 Anxiety 12589371 Active 2018 ANDREI HUTCHINSON [address], [place], [address], [place] - [facility] 9 11:54:52 Essential hypertension 64941982 Active 2018 ANDREI HUTCHINSON [address], [address], [place], [address], [facility] 9 12:12:54 Insomnia 997749256 Active 2018 NUBIA ANDREI HOFFMAN [address], [address], [place], [address], [facility] 9 12:13:59 Problem Notes None recorded. Medical Equipment None Reported. Allergies Allergen ID Allergen Name Allergen Category Reaction Reaction Severity Criticality Documentation Date Start Date Code Code System Note Provider Name and Address Organization Details Recorded Time [id number] 2824e morphine medicatio n Not available Not available Not available 03/30/2019 7052 RxNorm Not Available Not Available Not Available Medications Not known to be on any [...] 141 mm[Hg] 65 mm[Hg] ANDREI HUTCHINSON [address], [address], [place], [address], [facility] 9 11:39:45 Date Recorded Heart rate Respiratory rate Oxygen saturation Oxygen saturation in Arterial blood by Pulse oximetry Inhaled oxygen flow rate Systolic blood pressure Diastolic blood pressure Provider Name and Address Organization Details Last Updated DateTime 9 74 /min 20 /min 93 % 93 % 3 L/min 115 mm[Hg] 71 mm[Hg] Milli Milton MD [address], [address], [place], [address], [facility] 9 11:57:31 Date Recorded Body temperature Heart rate Respiratory rate Oxygen saturation Oxygen saturation in Arterial blood by Pulse oximetry Inhaled oxygen flow rate Systolic blood pressure Diastolic blood pressure Provider Name and Address Organization Details Last Updated DateTime 9 98.1 [degF] 68 /min 20 /min 96 % 96 % 3 L/min 115 mm[Hg] 59 mm[Hg] ANDREI HUTCHINSON [address], [address], [place], [address] [place] [facility] 9 12:31:37 Social History Question Answer Notes LastModified by Organizat ion Details LastModified Time Tobacco Smoking Status Current Every Day Smoker Not Available [facility] 05/21/2020 03:13:22 Do You Have An Advance Directive? No [id number] Information not available 05/21/2020 What Is Your Level Of Alcohol Consumption? None [id number] Information not available 05/21/2020 How Much Tobacco Do You Chew? None [id number] Information not available 05/21/2020 Do You Or Have You Ever Used E-cigarettes Or Vape? Never Used Electronic Cigarettes [id number] Information not available 05/21/2020 Do You Have A Medical Power Of Hyperion Analyst? No [id number] Information not available 05/21/2020 What Was The Date Of Your Most Recent Tobacco Screening? 03/30/2019 [id number] Information not available 05/21/2020 Do You Or Have You Ever Used Smokeless Tobacco? Never Used Smokeless Tobacco [id number] Information not available 05/21/2020 How Much Tobacco Do You Smoke? 1 PPD [id number] Information not available 05/21/2020 On What Date Was Tobacco Cessation Counseling Provided? 03/30/2019 Nicotine Patch On [id number] Information not available 05/21/2020 How Many Years Have You Smoked Tobacco? 20 [id number] Information not available 05/21/2020 Sex: Unknown Functional Status None recorded. Mental Status None recorded. Family History Nothing Reported. Medical History No medical history recorded. Gynecological HistoryNo gynecological history recorded. Obstetrics History GPAL:G 0 P 0 0 0 0 Past Encounters Encounter ID Performer Location Encounter Start Date Encounter Closed Date Diagnosis/Indication Diagnosis SNOMED-CT Code Diagnosis ICD10 Code [id number] ANDREI HUTCHINSON [place] [address] [place] [address] 03/30/2019 11:27:04 04/18/2019 13:50:48 Buchz-xo-qgzphmd respiratory failure 62350992 J96.22 Bacteremia 6612874 R78.8 1 Chronic ob structive pulmonary disease 23609189 J41.8 Smoker 36605557 F17.210 Chronic pain 27566091 G8 9.29 Venous stasis 16761062 I 87.8 Asthma 887816846 J45.99 8 Chronic hepatitis C 1283 54082 B18.2 Crohn's disease 46787781 K50.80 Anxiety 78229688 F41.1 Essential hypertension 75559955 I10 Insomnia 324278047 G47.0 9 [id number] Mlili Milton MD [address] [address] 03/31/2019 11:56:49 04/18/2019 13:53:53 Chronic obstructive pulmonary disease 26569853 J41.1 Chronic pain 57093383 G8 9.29 Anxiety 23249395 F41.1 Essential hypertension 18385324 I10 Smoker 20908978 F17.200 Bacteremia 9843849 R78.8 1 Insomnia 503202017 G47.0 9 [id number] ANDREI HUTCHINSON [address] [address] 04/03/2019 12:19:28 04/18/2019 13:52:43 Bacteremia 7755281 R78.81 Acute-on-c hronic respiratory failure 56802493 J96.22 Chronic ob structive pulmonary disease 21758993 J41.8 Asthma 327078454 J45.99 8 Smoker 81690388 F17.210 Chronic pain 01900840 G8 9.29 Venous stasis 28199850 I 87.8 Chronic hepatitis C 1283 51505 B18.2 Crohn's disease 66688053 K50.80 Anxiety 31688135 F41.1 Essential hypertension 46205892 I10 Insomnia 232531951 G47.0 9 Health Concerns Section Related Observation LastModified by Organization Detai ls LastModified Time None Recorded Concern Status LastModified by Organization Details LastModified Time None Recorded Advance Directives Directive N: Payers Encounter Date Sequence Insurance Name Policy Number Policy Garcia Covered Member ID Garcia Member ID Guarantor Name 03/30/2019 1 MED[place] B[place]: [facility] Sample [id number] 1 [place] Sample 03/31/2019 1 MED[place] [facility] Sample [id number] 1 [place] Sample 04/03/2019 1 MEDICARE [place]: [facility] [place] Sample [id number] 1 [place] Sample Notes Date Note Type Note Provider Name and Address Organization Details Recorded Time 03/30/2019 text/html A 59 year old female being seen for a initial intake note. Patient presented to [facility] er with sob and cough. She received [...] respiratory failure and hepatitis c. NUBIA HOFFMAN, [address], [address], [place], [address], [facility] 03/30/2019 19:27:36 03/31/2019 text/html This 59 year old female was admitted to [facility] on 03/29/19 for continued care and rehab after [facility] for acute on chronic respiratory failure. Patient presented to [facility] ER with sob and cough as well as weakness and confusion. She had recently been injured by oxygen tank falling on left leg before long drive. Leg became swollen and infected. Patient stopped at Urgent Care and then ER on her travels. She received Rx for oral doxycycline. At [facility], she received solu-medrol, IV furosemide and updrafts [...] full code assumed Milli Milton MD [address], [address], [place], [address], [facility] [employer] [facility] 03/31/2019 12:49:04 04/03/2019 text/html A 59 year old female being seen for a discharge summary. Patient presented to [facility] er with sob and cough. She received [...] failure and hepatitis c. ANDREI HUTCHINSON [address], [address], [place], [address], [facility] [employer] [facility] 04/03/2019 14:05:15 OBGyn Episode No OBEpisode recorded.
--- OUTSIDE RECORDS SUMMARY | 2024-07-25 11:42 | XMS_ITS | Encounter Summary ---
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 Address [address] [place] [id number] Care Team Providers Care Outside Event Sales Specialist Name Role Phone ROMANA CASTILLO Primary [...] Garcia's Name Patient's Relationship to Policy Garcia [facility] (MEDICAID) [facility] May 14, 2009 [id number] SAMPLE,ROCCO MOORE PATIENT [facility]ID [facility] May 14, 2009 [id number] SAMPLE,ROCCO MOORE PATIENT MEDICAID MEDICAID [facility] [place] Jul 26, 2018 MEDICAI D [id number] SAMPLE,ROCCO MOORE PATIENT MEDICARE (WNR) MEDICARE (M) PART A November 24, 2015 PART A [id number] SAMPLE,ROCCO MOORE PATIENT MEDICARE (WNR) MEDICARE (M) PART B November 24, 2015 PART B [id number] ROCCO QUEZADA PATIENT Selected Encounter This section includes the information on record at OR for the Encounter. Date/Time Encounter Type Encounter Description Reason Pro vider Source Jul 12, 2024 11:31 AM Outpatient Encounter PAIN CLINIC IHE Encounter [...] 13, 2024 10:00 AM AMBULATORY - MEDICINE [facility] Aug 03, 2024 01:00 PM AMBULATORY - PSYCHIATRY [facility] Aug 24, 2024 11:00 AM AMBULATORY MEDICINE [facility] Sep 07, 2024 11:30 AM AMBULATORY MEDICINE [facility] Active, Pending, and Scheduled Orders This section includes a listing of several types of active, pending, and scheduled orders, including clinic medications orders, diagnostic test orders, procedure orders and consult orders; where the start date of the order is 45 days before the date of the Encounter or 45 days after the date of theEncounter. The data comes from all [facility]. 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 The data comes from the [place] facility where the Encounter took place. Date/Time Smoking Status/Tobac co Use Comment Facility Mar 06, 2024 09:00 AM VA-TOBACCO QUIT 15 YRS OR MORE [facility] [place] [facility] Mar 31, 2023 11:00 AM VA-TOBACCO FORMER USER OR [facility] [place] [facility] Mar 31, 2023 11:00 AM VA-TOBACCO QUIT 1 TO < 5 YRS [facility] [place] [facility] Mar 25, 2022 10:30 AM VA-TOBACCO NEVER USED OR [facility] [place] [facility] Mar 19, 2021 02:00 PM VA-TOBACCO FORMER USER [facility] [place] [facility] Mar 19, 2021 02:00 PM VA-TOBACCO QUIT < 1 YEAR [facility] [place] [facility] Sep 20, 2018 11:24 AM [facility]BACCO [facility] [place] [facility] Oct 21, [...] [facility] [place] [facility] May 22, 2013 10:10 AM QUIT TOBACCO USE IN PAST YEAR OR [facility] [place] [facility] December 01, 2012 01:54 PM QUIT TOBACCO USE IN PAST YEAR OR CNT [facility] [place] [facility] Jun 07, 2012 08:16 AM V1-PT DECLINES TOBACCO CESSATION MEDS [place] [facility] [place] [facility] Jun 07, 2012 08:16 AM V1-PT THINKING ABOUT QUIT [facility] [place] [facility] Jan 05, 2012 09:00 AM CURRENT SMOKER [facility]mittenly [facility] [place] [facility] Jan 05, 2012 09:00 AM V1-PT DECLINES REF TO TOBACCO CESS PRGM [facility] [place] [facility] Jan 05, 2012 09:00 AM V1-PT DECLINES TOBACCO CESSATION [facility] [place] [facility] Jan 05, 2012 09:00 AM V1-PT THINKING ABOUT QUIT TOBACCO USE OR [facility] [place] [facility] Feb 17, 2011 09:52 AM V1-PT DECLINES TOBACCO CESSATION [facility] [place] [facility] Feb 17, 2011 09:52 AM V1-PT THINKING ABOUT QUIT [facility]ACCO [facility] [place] [facility] Aug 13, 2010 11:31 AM QUIT TOBACCO USE IN PAST YEAR [facility] [place] [facility] Feb 19, 2010 01:26 PM QUIT TOBACCO USE IN PAST YEAR [facility] [place] [facility] Sep 13, 2009 11:04 AM QUIT TOBACCO USE IN PAST YEAR [facility] [place] [facility] Feb 05, 2009 08:29 AM V1-PT DECLINES REF TO TOBACCO CESS PRGM [facility] [place] [facility] Feb 05, 2009 08:29 AM V1-PT DECLINES TOBACCO [facility]ESSATION [facility] Feb 05, 2009 08:29 AM V1-PT THINKING ABOUT QUIT [facility]ACCO [facility] [place] [facility] Aug 22, 2008 09:04 AM QUIT TOBACCO USE IN PAST YEAR [facility] [place] [facility] Mar 12, 2008 10:40 AM V1-PT DECLINES REF TO TOBACCO CESS PRGM [facility] [place] [facility] Mar 12, 2008 10:40 AM V1-PT DECLINES TOBACCO CESSATION MEDS [facility] [place] [facility] Mar 12, 2008 10:40 AM V1-PT NOT INTERESTED IN QUIT TOBACCO USE [facility] [place] [facility] Mar 08, 2008 09:37 AM CURRENT SMOKER smokes one pack a day for about 10 years ago. [facility] Encounter Notes: All associated encounter notes This section contains the clinical notes associated to the Encounter. Date/Time Encounter Note(s) Provider Source Jul 12, 2024 11:31 AM TELEPHONE ENCOUNTE R NOTE: LOCAL TITLE: TELEPHONE NOTE/SPECIALTY CLINIC STANDARD TITLE: TELEPHONE ENCOUNTER NOTE DATE OF NOTE: JUL 12, 2024@11:31 ENTRY DATE: JUL 12, 2024@11:32:07 AUTHOR: BEULAH LOPEZ EXP COSIGNER: URGENCY: STATUS: COMPLETED Called and spoke with pt to remind them that they have a FTF appt with the Pain clinic on 07/13/2024 at 1000. New location was confirmed /divya/ BEULAH LOPEZ ADVANCED SALES DEPARTMENT SUPERVISOR Signed: 07/12/2024 11:32 BEULAH LOPEZ [facility]
--- OUTSIDE RECORDS SUMMARY | 2024-07-25 11:42 | XMS_ITS ---
Author Organization General acute hospital Address [address] [place] [address] Care Team Providers Care Biofuels Plant Operations Engineer Name Role Phone Lyndsey ORDAZ, Gal Primary Care Provider Unavail able Ritchie Werner Unavailable [phone] Rowan Nettles Unavailable [phone] Encounters Encounter Location Date Provider Diagnosis [facility] [address] [place] [address] 02/24/2023 Rowan Nettles Plan Of Treatment No Information Progress Notes * Maggie CHAUDHARYOB:[birth year] (64 yo F)Acc No.[id number]:02/24/2023 Progress Notes Patient:?Brianne CHAUDHARY Provider:?Rowan Nettles DPM :1960???Age:63 Y???Sex:Female D ate:02/24/2023 Address: [address] [place], [id number] Pcp:Gal Solorio MD Subjective: * Chief Complaints: [...] Nettles DPM Date:?08/2022 Generated for Edwini barry/Ernie/eTransmitting on:?07/25/2024 11:42 AM EST
--- OUTSIDE RECORDS SUMMARY | 2024-07-25 11:42 | XMS_ITS | Encounter Summary ---
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 Organization [place] Address [address] [place] [address] Care Team Providers Care Manager Programming Name Role Phone ROMANA CASTILLO Primary Care [...] Garcia's Name Patient's Relationship to Policy Garcia [facility] (MEDICAID) [facility]ID [facility] May 14, 2009 [id number] SAMPLE,ROCCO MOORE PATIENT [facility] MEDICAID [facility] May 14, 2009 [id number] SAMPLE,ROCCO MOORE PATIENT MEDICAID MEDICAID [facility] ST[facility] [place] Jul 26, 2018 MEDICAI D [id number] SAMPLE,ROCCO MOORE PATIENT MEDICARE (WNR) MEDICARE (M) PART A November 24, 2015 PART A [id number] SAMPLE,ROCCO MOORE PATIENT MEDICARE (WNR) MEDICARE (M) PART B November 24, 2015 PART B [id number] ROCCO QUEZADA PATIENT Selected Encounter This section includes the information on record at [place] for the Encounter. Date/Time Encounter Type Encounter Description Reason Pro vider Source Jul 24, 2024 10:47 AM Outpatient Encounter PAIN CLINIC IHE Encounter [...] 03, 2024 01:00 PM AMBULATORY - PSYCHIATRY [facility] Aug 24, 2024 11:00 AM AMBULATORY - MEDICINE [facility] Sep 07, 2024 11:30 AM AMBULATORY MEDICINE [facility] Active, Pending, and Scheduled Orders This section includes a listing of several types of active, pending, and scheduled orders, including clinic medications orders, diagnostic test orders, procedure orders and consult orders; where the start date of the order is 45 days before the date of the Encounter or 45 days after the date of theEncounter. The data comes from all [facility]. 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 [facility] Social History: Smoking Status (Most [...] Facil ity Mar 06, 2024 09:00 AM [place]-TOBACCO FORMER USER [facility] Tobacco Use [...] YRS OR MORE [place] [facility] [place] [facility] Mar 31, 2023 11:00 AM VA-TOBACCO FORMER USER [place] [facility] [place] [facility] Mar 31, 2023 11:00 AM VA-TOBACCO QUIT 1 TO < 5 YRS [place] [facility] [place] [facility] Mar 25, 2022 10:30 AM VA-TOBACCO NEVER USED [place] [facility] [place] [facility] Mar 19, 2021 02:00 PM VA-TOBACCO FORMER USER [place] [facility] [place] [facility] Mar 19, 2021 02:00 PM VA-TOBACCO QUIT < 1 YEAR [place] [facility] [place] [facility] Sep 20, 2018 11:24 AM VA-TOBACCO USE DECLINED TO ANSWER [place] [facility] [place] [facility] Oct 21, 2017 08:13 AM QUIT TOBACCO USE IN PAST YEAR [place] [facility] [place] [facility] Dec 30, 2016 08:28 AM QUIT TOBACCO USE 1-7 YEARS AGO [place] [facility] [place] [facility] Jun 04, 2016 08:43 AM QUIT TOBACCO USE 1-7 YEARS AGO [place] [facility] [place] [facility] May 17, 2015 08:45 AM QUIT TOBACCO USE 1-7 YEARS AGO quit 2 years ago. [place] [facility] [place] [facility] Jun 07, 2014 09:25 AM QUIT TOBACCO USE 1-7 YEARS AGO [place] [facility] [place] [facility] November 30, 2013 08:44 AM QUIT TOBACCO USE IN PAST YEAR [place] [facility] [place] [facility] May 22, 2013 10:10 AM QUIT TOBACCO USE IN PAST YEAR [place] [facility] [place] [facility] December 01, 2012 01:54 PM QUIT TOBACCO USE IN PAST YEAR [place] [facility] [place] [facility] Jun 07, 2012 08:16 AM V1-PT DECLINES TOBACCO CESSATION MEDS [place] [facility] [place] [facility] Jun 07, 2012 08:16 AM V1-PT THINKING ABOUT QUIT TOBACCO USE [place] [facility] [place] [facility] Jan 05, 2012 09:00 AM CURRENT SMOKER intermittenly [place] [facility] [place] [facility] Jan 05, 2012 09:00 AM V1-PT DECLINES REF TO TOBACCO CESS PRGM [place] [facility] [place] [facility] Jan 05, 2012 09:00 AM V1-PT DECLINES TOBACCO CESSATION MEDS [place] [facility] [place] [facility] Jan 05, 2012 09:00 AM V1-PT THINKING ABOUT QUIT TOBACCO USE [place] [facility] [place] [facility] Feb 17, 2011 09:52 AM V1-PT DECLINES TOBACCO CESSATION MEDS [facility] [place] [facility] Feb 17, 2011 09:52 AM V1-PT THINKING ABOUT QUIT TOBACCO USE [place] [facility] [place] [facility] Aug 13, 2010 11:31 AM QUIT TOBACCO USE IN PAST YEAR [place] [facility] [place] [facility] Feb 19, 2010 01:26 PM QU[facility]AC[facility] [place] [facility] Sep 13, 2009 11:04 AM QUIT TOBACCO [facility] [place] [facility] Feb 05, 2009 08:29 AM V1-PT DECLINES REF TO TOBACCO CESS [facility] [place] [facility] Feb 05, 2009 08:29 AM V1-PT DECLINES TOBACCO [facility]ESSATION MED[facility] [place] [facility] Feb 05, 2009 08:29 AM V1-PT THINKING ABOUT QUIT TOBACCO USE [place] [facility] [place] [facility] Aug 22, 2008 09:04 AM QUIT TOBACCO USE IN PAST YEAR [place] [facility] [place] [facility] Mar 12, 2008 10:40 AM V1-PT DECLINES REF TO TOBACCO CESS PRGM [place] [facility] [place] [facility] Mar 12, 2008 10:40 AM V1-PT DECLINES TOBACCO CESSATION MEDS [place] [facility] [place] [facility] Mar 12, 2008 10:40 AM V1-PT NOT INTERESTED IN QUIT TOBACCO USE [place] [facility] [place] [facility] Mar 08, 2008 09:37 AM CURRENT SMOKER smokes one pack a day for about 10 years ago. [facility] [place] [facility] Encounter Notes: All associated encounter notes This section contains the clinical notes associated to the Encounter. Date/Time Encounter Note(s) Provider Source Jul 24, 2024 01:20 PM ADDENDUM: LOCAL TITLE: Addendum STANDARD TITLE: ADDENDUM DATE OF NOTE: JUL 24, 2024@13:20:02 ENTRY DATE: JUL 24, 2024@13:20:03 AUTHOR: JESSIKA CORONEL EXP COSIGNER: URGENCY: STATUS: COMPLETED Please instruct [place] to continue current meds and review possible change with Dr. Madsen next week. Thank you. /divya/ JESSIKA CORONEL MD PHYSICIAN Signed: 07/24/2024 13:20 Receipt Acknowledged By: 07/25/2024 09:47 /divya/ Gal Madsen MD STAFF PHYSICIAN 07/24/2024 13:38 /divya/ BEULAH LOPEZ ADVANCED LOBSTERMAN ========= --- Original Document --- 07/24/24 TELEPHONE NOTE/SPECIALTY CLINIC: senior copywriter spoke with janet, she states she is taking dilaudid now and it is not helping and she is having trouble sleeping. She would like to go back to what she was on before. [place] is aware Dr. Madsen not in office until tomorrow. However, she is asking for a call back from pain engineer steam today as she is not sleeping well. Please advise [phone] /divya/ BEULAH LOPEZ ADVANCED LOBSTERMAN Signed: 07/24/2024 10:49 Receipt Acknowledged By: 07/24/2024 13:30 /divya/ ERIC DOUGLAS CLINICAL PHARMACIST PRACTITIONER, PAIN 07/24/2024 13:16 /divya/ JESSIKA CORONEL MD PHYSICIAN 07/24/2024 ADDENDUM STATUS: COMPLETED senior copywriter spoke with janet, gave her info from above. She asked if Dr. Madsen could call her tomorrow when he is in the office. /divya/ BEULAH LOPEZ ADVANCED LOBSTERMAN Signed: 07/24/2024 13:38 Receipt Acknowledged By: * AWAITING SIGNATURE * GAL MADSEN SETH B [facility] Jul 24, 2024 10:47 AM TELEPHONE ENCOUNTE R NOTE: LOCAL TITLE: TELEPHONE NOTE/SPECIALTY CLINIC STANDARD TITLE: TELEPHONE ENCOUNTER NOTE DATE OF NOTE: JUL 24, 2024@10:47 ENTRY DATE: JUL 24, 2024@10:47:13 AUTHOR: BEULAH LOPEZ EXP COSIGNER: URGENCY: STATUS: COMPLETED TELEPHONE NOTE/SPECIALTY CLINIC Has ADDENDA senior copywriter spoke with janet, she states she is taking dilaudid now and it is not helping and she is having trouble sleeping. She would like to go back to what she was on before. Janet is aware Dr. Madsen not in office until tomorrow. However, she is asking for a call back from pain engineer steam today as she is not sleeping well. Please advise [phone] /divya/ BEULAH LOPEZ ADVANCED LOBSTERMAN Signed: 07/24/2024 10:49 Receipt Acknowledged By: 07/24/2024 13:30 /es/ ERIC DOUGLAS CLINICAL PHARMACIST PRACTITIONER, PAIN 07/24/2024 13:16 /divya/ JESSIKA CORONEL MD PHYSICIAN 07/24/2024 ADDENDUM STATUS: COMPLETED Please instruct [place] to continue current meds and review possible change with Dr. Madsen next week. Thank you. /divya/ JESSIKA CORONEL MD PHYSICIAN Signed: 07/24/2024 13:20 Receipt Acknowledged By: * AWAITING SIGNATURE * GAL MADSEN 07/24/2024 13:38 /divya/ BEULAH LOPEZ ADVANCED LOBSTERMAN 07/24/2024 ADDENDUM STATUS: COMPLETED senior copywriter spoke with janet, gave her info from above. She asked if Dr. Madsen could call her tomorrow when he is in the office. /divya/ BEULAH LOPEZ ADVANCED LOBSTERMAN Signed: 07/24/2024 13:38 Receipt Acknowledged By: * AWAITING SIGNATURE * GAL MADSEN JANE [facility]
--- OUTSIDE RECORDS SUMMARY | 2024-07-25 11:42 | XMS_ITS | Data Portability ---
Author Organization [place] [facility]ay Lin [facility], [facility] Address [address] [place] [address] Care Team Providers Care Courtesy Car Driver Name Role Phone [facility] Primary Care Pro vider Assessment Encounter Date [...] a nonoperative mind set; recheck as needed [email or web address] Not available 11/24/2023 10:54:02 02/22/2024 02/22/2024 CC [...] be taken - expectations would be possible bed bug exterminator wound closure, ongoing ABX would be necessary and there would be no intent to cure the infection after fracture fixation. 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 Results Procedure: Wound Vacuum Dressing Change Description: [...] with wound care nurse from [facility]. -Check wound in 6-8 weeks or sooner [...] care clinic for additional input if needed. [email or web address] Not available 04/17/2024 21:48:46 06/01/2024 06/01/2024 History [...] weeks or sooner if any flare-ups occur. [email or web address] Not available 06/07/2024 22:37:13 Plan of Treatment [...] rt femur 2v new pt 2023 024 [email or web address] [facility], [address], [place], [address], 11/24/2023 16:27:27 XR, femur, 2 or more view - 310 rt femur 2v global 2023 024 [email or web address] [facility], [address], [place], [address], 04/20/2024 07:22:36 Medication Orders None recorded . Patient TargetsNo targets recorded. Patient InstructionsNo instructions recorded. Reason for Referral Right distal lateral thigh w ound, wound VAC change every 48-72 hours, with black granular foam sponge, and -125 mmHg suction. Wound tunnels distally about 4 cm, and laterally i.e. deep she is about 3-1/2 cm. Referring Physician: Juanjose Dangelo, Orthopedic Surgery, [id number] Encounter Date: 04/07/2024 Results Created Date Observation Date Name Description Value Unit Range Abnormal Flag Note LastModifiedBy Organization Detail LastModifiedTime 04/07/2004/07/2024 XR, femur , 2 or more view [email or web address] ?Encry pted=s hAaTro YD8dLq bEUv6g %2BXZw aYqtaq 0bqfl% 2Fg9IQ a4ajBk vP9nXo QUaueC m3YtLR FvZlgJ JJ8mAn HZtai3 4m6374 AC0Kqa n6MU6S iKiQtr MwF INTERFACE [facility] [address], [place], [address], 04/07/2024 11:10:25 04/07/20 24 04/07/2024 XR, femur , 2 or more view [email or web address] ?Encry pted=s hAaTro YD8dLq bEUv6g %2BXZw aYqtaq 0bqfl% 2Fg9IQ a4ajBk vP9nXo QUaueC m3YtLR FvZlgJ JJ8mAn HZtai3 1l1287 AC0Kqa n6MU6S iKiQtr MwF INTERFACE [facility] [address], [place], [address], 04/07/2024 11:10:27 Result Notes None recorded. 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 1069044820431 03 Active 2023 Katina Mills MD [address], [place], [address] , [facility] 4 11:52:00 Open wound of thigh 819270760 Active 2023 Katina Mills MD [address], [place], [address] , [facility] 4 16:45:16 Infection AND/OR inflammato ry reaction due to internal prosthetic device, implant AND/OR graft 74300419 Active 2023 Katina Mills MD [address], [place], [address] , [facility] 4 16:45:24 Thigh pain 54452392 [facility] 4 13:29:20 Thigh pain 81285520 Active 2023 JOHN rangel [place] [facility] 4 13:29:34 Pain of right thigh 0234504963003 07 Active 2023 JOHN rangel [place] [facility] 4 13:30:16 Problem Notes None recorded. Procedures Surgical History None recorded. Imaging Results Imaging Date Name Status LastModified by Organiz ation Details LastModified Time 04/07/2024 XR, femur, 2 or more view completed INTERFACE [facility] [facility] [address], [place], [address], 04/07/2024 11:10:25 04/07/2024 XR, femur, 2 or more view completed INTERFACE [facility] [address], [place], [address], 04/07/2024 11:10:27 Procedure Notes None recorded. Medical Equipment None Reported. Allergies Allergen ID Allergen Name Allergen Category Reaction Reaction Severity Criticality Documentation Date Start Date Code Code System Note Provider Name and Address Organization Details Recorded Time 65386 morphine sulfate medicatio n Not available Not available Not available 09/27/20232020 54685 RxNorm Not Available [facility] [...] Updated DateTime 11/24/2023 156.21 cm 50.2 kg/m2 301349.94 g VIKTOR DIAZ [facility] 11/24/2023 09:55:18 Date Recorded Body height Body mass index (BMI) Body weight Provider Name and Address Organization Details Last Updated DateTime 02/22/2024 156.21 cm 50.2 kg/m2 358449.94 g VIKTOR DIAZ [facility] 02/22/2024 14:48:54 Date Recorded Body height Body mass index (BMI) Body weight Provider Name and Address Organization Details Last Updated DateTime 04/07/2024 156.21 cm 50.2 kg/m2 864639.94 g VIKTOR DIAZ [facility] 04/07/2024 10:56:59 Date Recorded Body height Body mass index (BMI) Body weight Provider Name and Address Organization Details Last Updated DateTime 06/01/2024 156.21 cm 50.2 kg/m2 191496.94 g VIKTOR DIAZ [facility] 06/01/2024 14:26:08 Social History None recorded. Functional Status None recorded. Mental Status None recorded. Family History Nothing Reported. Medical History Condition Response Allergies/Hayfever Y Coronary Artery Disease N Anxiety/Depression Y Breathing or lung disorders Y Emphysema N Nerve Disorders N Thyroid Problems N COPD Y Pacemaker N Anemia N Kidney/Bladder Problems N Vascular Disease N Heart Trouble Y Heart Attack ([place]) N Gastrointestinal Disease Y Cholesterol N Diabetes N Autoimmune disease Y Bleeding Disorder N Inflammatory Joint disease N Orthotics N Arthritis Y Seizures/Epilepsy N [...] Diagnosis/Indication Diagnosis SNOMED-CT Code Diagnosis ICD10 Code [id number] MD Cristina Morton [address] [place] [address] 11/24/2023 09:44:05 11/24/2023 16:25:12 Fracture of femur 55412214 S72.91XD [id number] MD Cristina Morton [address] [place] [address] 02/22/2024 14:35:57 03/20/2024 05:41:20 Chronic osteomyelitis of femur 527725032 M86.659 Infection AND/OR inflammatory reaction due to internal prosthetic device, implant AND/OR graft 72667871 T82.7XXS Open wound of thigh 1256 60471 S71.101A Chronic os teomyelitis of femur with draining sinus 1878560429 88266 M86.687 [id number] MD Cristina Ambrose [address] [place] [address] 04/07/2024 10:50:34 04/20/2024 07:22:36 Closed fracture of shaft of femur 62919466 S72.301D Open wound of thigh 1256 37610 S71.101D [id number] MD Cristina Ambrose [address] [place] [address] 06/01/2024 14:12:22 06/20/2024 09:07:48 Chronic osteomyelitis of right femur 0990613549 575525 M86.651 Chronic os teomyelitis of femur with draining sinus 7617629472 28341 M86.451 Health Concerns Section Related Observation LastModified by Organization Detai ls LastModified Time None Recorded Concern Status LastModified by Organization Details LastModified Time None Recorded Advance Directives Directive None Recorded Payers Encounter Date Sequence Insurance Name Policy Number Policy Garcia Covered Member ID Garcia Member ID Guarantor Name 11/24/2023 1 [place] [facility] Sample [id number] [employer] Sample 11/24/2023 2 [place] [facility] Sample [id number] [place] Sample 02/22/2024 1 [place] [facility] Sample [id number] [employer] Sample 02/22/2024 2 [place] [facility] Sample [id number] [employer] Sample 04/07/2024 1 [place] [facility] Sample [id number] [employer]er Sample 04/07/2024 2 [place] [facility] Sample [id number] [employer] Sample 06/01/2024 1 [place] [facility] Sample [id number] [employer] Sample 06/01/2024 2 [place] [facility] Sample [id number] [employer]er Sample OBGyn Episode No OBEpisode recorded.
--- OUTSIDE RECORDS SUMMARY | 2024-07-25 11:42 | XMS_ITS ---
Author Organization [facility] [place] Address [address] [place] [address] Care Team Providers Care Independent Beauty Consultant Name Role Phone Gal Solorio MD Primary Care Provider Unavail able Ritchie Werner Unavailable [phone] Allergies No Known Allergies REASON FOR VISIT [...] W/U Status Risk Notes Problem Atherosclerosis of [place] arteries of the extremities (729906739083525) Atherosclerosis of [place] artery of both lower extremities, with unspecified presence of clinical manifestation (I70.203) Active confirmed Vital Signs Height 5ft 1in in 03/04/2023 Weight 270 lbs 03/04/2023 BMI 51.01 kg/m2 03/04/2023 Procedures Procedure Date Ordered Date Performed Result Body Sit e 02277-BKQQWRB NAIL, 1-5 03/04/2023 N/A 39622-RFFK SKIN LESIONS, 2 TO 4 03/04/2023 N/A I7662-YMTZOCMA DYSTROPHIC NAILS ANY # 03/04/2023 N/A Encounters Encounter Location Date Provider Diagnosis [facility] [place] [address] [address] 03/04/2023 Ritchie Werner Atherosclerosis of [place] artery of both lower extremities, with unspecified [...] Clinical Notes Section Notes 03/04/2023 Atherosclerosis of [place] artery of both lower extremities, with unspecified [...] Treatment Pending Test Test Name Order Date 07744-YSPIJPN NAIL, 1-5 03/04/2023 54472-HWGC SKIN LESIONS, 2 TO 4 03/04/20 23 B4516-XAHQPFBQ DYSTROPHIC NAILS ANY # Next Appt Details Follow Up: prn, Reason: Procedure Notes * Category Sub-Category Detail Notes Keratoma Treatment Parring or Cutting o f Benign Hyperkeratotic Lesion(s) 62918 ( 2-4 Lesions ) - The Benign [...] as necessary. Patient chooses, no pharmaceutical tx (36915) Nail Reduction Nail Reduction Trimming of dyst rophic nails performed to reduce/remove overall nail length and girth, by manual and electrical means with use of a nail nipper and/or dremel, to more viable healthy nail plate or bed tissue 6-10 (R0011-D4) Progress Notes * Maggie CHAUD[birth year]OB:[birth year] (63 yo F)Acc No.[id number]:03/04/2023 Progress Notes Patient:?Brianne Chaudhary Provider:?Ritchie Werner DPM :1960???Age:63 Y???Sex:Female D ate:03/04/2023 [address] [place], [place] [address] Pcp:Gal Solorio MD Subjective: * Chief Complaints: [...] * Assessment: 1.?Onychomycosis - B35.1?2.? Atherosclerosis of [place] artery of both lower extremities, with unspecified presence of clinical manifestation - I70.203 (Primary)?3.?Pain of toe of right foot - M79.674?4.?Pain of toe of left foot - M79.675?5.?Pain in right foot - M79.671?6.?Pain in right ankle and joints of right foot - M25.571?7.?Bursitis of right foot - M77.51?8.?Hallux valgus (acquired), right foot - M20.11, Chronic problem, Stable (1=3,2=4)? Plan: * Treatment: 2.?Onychomycosis?Procedure: 89851-DWIULCF NAIL, 1-5 * Procedures:?Debride Nails 1-5:?Procedure:?Nail debridement performed extensively to reduce/remove overall nail length and girth, subungual debris, and necrotic tissue, by manual and electrical means by use of a nail nipper and/or dremel, to more viable healthy nail plate or bed tissue 1-5. Silver nitrate used for any petechial bleeding as necessary. Patient chooses, no pharmaceutical tx (91424).?Keratoma Treatment:?Parring or Cutting of Benign Hyperkeratotic Lesion(s)?88314 ( 2-4 Lesions ) - The Benign [...] DYSTROPHIC NAILS ANY #, Modifiers: XS , [id number] DEBRIDE NAIL, 1-5, Modifiers: XS 47976 TRIM SKIN LESIONS, 2 TO 4, Modifiers: [...] Provider:?Ritchie Werner DPM Date:?2022 Generated for Denys reddy/Ernie/Ellynitting on:?07/25/2024 11:42 AM EST History and Physical Notes * [...] person, place, and t ron Vascular DP PULSES (B): 0/4, B/L PT PULSES (B): 0/4, B/L CAPILLARY FILL TIME: delayed, all digits , B/L TEMPERTURE GRADIENT (C): decreased, cool to cool, proximal to distal, B/L TROPHIC CONDITION-TEXTURE/ELASTICITY/TURGOR/HAIR GROWTH (B): decreased, B/L EDEMA (C): 4/4 , pitting , with out aching pain , B/L , Leg(s) , Ankle(s) CLAUDICATION (C): denies, B/L REST PAIN: denies, B/L PIGMENTATION: brawny, B/L Nails NAILS are: Elongated, overg rown, dystrophic, lytic, greater than 3mm thick, discolored and friable with crumbly malodorous subungual debris, with pain on palpation , TA , T5 , T8 , T9 , remaining nails are elongated, overgrown, dystrophic
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
--- OUTSIDE RECORDS SUMMARY | 2024-07-25 11:42 | XMS_ITS | Encounter Summary ---
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 Role Phone ROMANA CASTILLO Primary [...] Relationship to Policy Garcia [facility] (MEDICAID) [facility]ID [facility] May 14, 2009 [id number] SAMPLE,ROCCO MOORE PATIENT [facility] MEDICAID [facility] May 14, 2009 [id number] SAMPLE,ROCCO MOORE PATIENT MEDICAID MEDICAID [facility] [place] Jul 26, 2018 MEDICAI D [id number] SAMPLE,ROCCO MOORE PATIENT MEDICARE (WNR) MEDICARE (M) PART A November 24, 2015 PART A [id number] SAMPLE,ROCCO MOORE PATIENT MEDICARE (WNR) MEDICARE (M) PART B November 24, 2015 PART B [id number] ROCCO QUEZADA PATIENT Selected Encounter This section includes the information on record at [place] for the Encounter. Date/Time Encounter Type Encounter Description Reason Pro vider Source Jun 28, 2024 08:54 AM Outpatient Encounter PAIN CLINIC IHE Encounter [...] 13, 2024 10:00 AM AMBULATORY - MEDICINE [facility] Aug 03, 2024 01:00 PM AMBULATORY - PSYCHIATRY [facility] Aug 24, 2024 11:00 AM AMBULATORY MEDICINE [facility] Sep 07, 2024 11:30 AM AMBULATORY MEDICINE [facility] Active, Pending, and Scheduled Orders This section includes a listing of several types of active, pending, and scheduled orders, including clinic medications orders, diagnostic test orders, procedure orders and consult orders; where the start date of the order is 45 days before the date of the Encounter or 45 days after the date of theEncounter. The data comes from all [facility]. Test Date/Time Test Type Test Details Facility Name Jul 07, 2024 11:06 AM Consult Order PSYCHIATRI C MEDICATION BHIP/NHM OUTPT Cons Shopper Marketing Manager's Choice [facility] Social History: Smoking Status (Most [...] Rosana christian Mar 06, 2024 09:00 AM [place]-TOBACCO FORMER USER [facility] Tobacco Use History This section includes a history of the smoking, or tobacco-related health factors, that were collected on or before the date of the Encounter. The data comes from the [place] facility where the Encounter took place. Date/Time Smoking Status/Tobac co Use Comment Facility Mar 06, 2024 09:00 AM [place]-TOBACCO QUIT 15 YRS OR MORE [place] [facility] [place] [facility] Mar 31, 2023 11:00 AM VA-TOBACCO FORMER USER [place] [facility] [place] [facility] Mar 31, 2023 11:00 AM VA-TOBACCO QUIT 1 TO < 5 YRS [place] [facility] [place] [facility] Mar 25, 2022 10:30 AM VA-TOBACCO NEVER USED [place] [facility] [place] [facility] Mar 19, 2021 02:00 PM VA-TOBACCO FORMER USER [place] [facility] [place] [facility] Mar 19, 2021 02:00 PM VA-TOBACCO QUIT < 1 YEAR [place] [facility] [place] [facility] Sep 20, 2018 11:24 AM VA-TOBACCO USE DECLINED TO ANSWER [place] [facility] [place] [facility] Oct 21, 2017 08:13 AM QUIT TOBACCO USE IN PAST YEAR [place] [facility] [place] [facility] Dec 30, 2016 08:28 AM QUIT TOBACCO USE 1-7 YEARS AGO [place] [facility] [place] [facility] Jun 04, 2016 08:43 AM QUIT TOBACCO USE 1-7 YEARS AGO [place] [facility] [place] [facility] May 17, 2015 08:45 AM QUIT TOBACCO USE 1-7 YEARS AGO quit 2 years ago. [place] [facility] [place] [facility] Jun 07, 2014 09:25 AM QUIT TOBACCO USE 1-7 YEARS AGO [place] [facility] [place] [facility] November 30, 2013 08:44 AM QUIT TOBACCO USE IN PAST YEAR [place] [facility] [place] [facility] May 22, 2013 10:10 AM QUIT TOBACCO USE IN PAST YEAR [place] [facility] [place] [facility] December 01, 2012 01:54 PM QUIT TOBACCO USE IN PAST YEAR [place] [facility] [place] [facility] Jun 07, 2012 08:16 AM V1-PT DECLINES TOBACCO CESSATION MEDS [facility] Jun 07, 2012 08:16 AM V1-PT THINKING ABOUT QUIT TOBACCO USE [facility] [place] [facility] Jan 05, 2012 09:00 AM CURRENT [facility]MOKER [facility]itten[facility] [place] [facility] Jan 05, 2012 09:00 AM V1-PT DECLINES REF TO TOBACCO CESS PRGM [facility] [place] [facility] Jan 05, 2012 09:00 AM V1-PT DECLINES TOBACCO CESSATION MEDS [facility] [place] [facility] Jan 05, 2012 09:00 AM V1-PT THINKING ABOUT QUIT TOBACCO USE [facility] [place] [facility] Feb 17, 2011 09:52 AM V1-PT DECLINES TOBACCO CESSATION MED[facility] [place] [facility] Feb 17, 2011 09:52 AM V1-PT THINKING ABOUT QUIT TOBACCO USE [place] [facility] [place] [facility] Aug 13, 2010 11:31 AM QUIT TOBACCO USE IN PAST YEAR [facility] [place] [facility] Feb 19, 2010 01:26 PM QUIT TOBACCO USE IN PAST YEAR [place] [facility] [place] [facility] Sep 13, 2009 11:04 AM QUIT TOBACCO USE IN PAST YEAR [facility] [place] [facility] Feb 05, 2009 08:29 AM V1-PT DECLINES REF TO TOBACCO CESS PRGM [facility] [place] [facility] Feb 05, 2009 08:29 AM V1-PT DECLINES TOBACCO CESSATION MEDS [facility] Feb 05, 2009 08:29 AM V1-PT THINKING ABOUT QUIT TOBACCO USE [place] [facility] [place] [facility] Aug 22, 2008 09:04 AM QUIT TOBACCO USE IN PAST YEAR [place] [facility] [place] [facility] Mar 12, 2008 10:40 AM V1-PT DECLINES REF TO TOBACCO CESS PRGM [place] [facility] [place] [facility] Mar 12, 2008 10:40 AM V1-PT DECLINES TOBACCO CESSATION MEDS [place] [facility] [place] [facility] Mar 12, 2008 10:40 AM V1-PT NOT INTERESTED IN QUIT TOBACCO USE [place] [facility] [place] [facility] Mar 08, 2008 09:37 AM CURRENT SMOKER smokes one pack a day for about 10 years ago. [place] [facility] [place] [facility] Encounter Notes: All associated encounter notes This section contains the clinical notes associated to the Encounter. Date/Time Encounter Note(s) Provider Source Jun 28, 2024 08:54 AM TELEPHONE ENCOUNTE R NOTE: LOCAL TITLE: TELEPHONE NOTE/SPECIALTY CLINIC STANDARD TITLE: TELEPHONE ENCOUNTER NOTE DATE OF NOTE: JUN 28, 2024@08:54 ENTRY DATE: JUN 28, 2024@08:54:49 AUTHOR: BEULAH LOPEZ EXP COSIGNER: URGENCY: STATUS: COMPLETED Call attempt was made to remind vet that they have a FTF appt with the Pain clinic on 06/29/2024 at 1030. No answer, lvm. location was confirmed. /divya/ BEULAH LOPEZ ADVANCED BIBLE TEACHER Signed: 06/28/2024 08:[address]Z [place] [facility]
--- OUTSIDE RECORDS SUMMARY | 2024-07-25 11:42 | XMS_ITS | Encounter Summary ---
Author Name [facility] [place] [facility] [place] Address [address] [place] [address] Care Team Providers Care Rn Long Term Care Name Role Phone ROMANA CASTILLO Primary Care [...] Name Patient's Relationship to Policy Garcia [facility] (MEDICAID) [facility] May 14, 2009 [id number] SAMPLE,ROCCO MOORE PATIENT [facility] MEDICAID [facility] May 14, 2009 [id number] SAMPLE,ROCCO MOORE PATIENT MEDICAID MEDICAID [facility] [place] Jul 26, 2018 MEDICAI D [id number] SAMPLE,ROCCO MOORE PATIENT MEDICARE (WNR) MEDICARE (M) PART A November 24, 2015 PART A [id number] SAMPLE,ROCCO MOORE PATIENT MEDICARE (WNR) MEDICARE (M) PART B November 24, 2015 PART B [id number] SAMPLE,ROCCO MOORE PATIENT Selected Encounter This section includes the information on record at [place] for the Encounter. Date/Time Encounter Type Encounter Description Reason Provider Source Jul 07, 2024 10:53 AM PRO PHONE CALL 11-20 MIN TELEPHONE MH ICD-10-CM F41.9 Anxiety disorder, unspecified BERTHA MCMULLEN CIA IHE Encounter Template Text not used by [place] Assessments - Encounter Diagnoses This section includes the primary and secondary diagnoses documented for the Encounter. Date/Time Primary/Secondary Diagnosis Diagnosis Name Provider Source Jul 07, 2024 10:53 AM PRIMARY Anxiety disorder, unspecified BERTHA MCMULLEN CIA A [facility] Plan of Treatment: Future Appointments (+ 6 months) and Future Tests (+/- 45 days) The Plan of Treatment section includes future care activities for the patient from all [place] [facility]. This section includes future appointments and future orders which are active, pending or scheduled. Future Appointments This section includes appointments that were scheduled to occur 6 months from the date of the Encounter, up to a maximum of 20 appointments. The data comes from all [facility]. Appointment Date/Time Appointment Type Appointme nt Facility Name Jul 13, 2024 10:00 AM AMBULATORY - MEDICINE [facility] Aug 03, 2024 01:00 PM AMBULATORY - PSYCHIATRY [facility] Aug 24, 2024 11:00 AM AMBULATORY - MEDICINE [facility] Sep 07, 2024 11:30 AM AMBULATORY - MEDICINE [facility] Active, Pending, and Scheduled Orders This section includes a listing of several types of active, pending, and scheduled orders, including clinic medications orders, diagnostic test orders, procedure orders and consult orders; where the start date of the order is 45 days before the date of the Encounter or 45 days after the date of theEncounter. The data comes from all [facility]. 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 The data comes from the [place] facility where the Encounter took place. Date/Time Smoking Status/Tobac co Use Comment Facility Mar 06, 2024 09:00 AM VA-TOBACCO QUIT 15 YRS OR MORE [place] [facility] [place] [facility] Mar 31, 2023 11:00 AM VA-TOBACCO FORMER USER [place] [facility] [facility] Mar 31, 2023 11:00 AM VA-TOBACCO QUIT 1 TO < 5 YRS [place] [facility] [place] [facility] Mar 25, 2022 10:30 AM VA-TOBACCO NEVER USED [place] [facility] [place] [facility] Mar 19, 2021 02:00 PM VA-TOBACCO FORMER USER [place] [facility] [facility] Mar 19, 2021 02:00 PM VA-TOBACCO QUIT < 1 YEAR [place] [facility] [facility] Sep 20, 2018 11:24 AM VA-TOBACCO USE DECLINED TO ANSWER [place] [facility] [place] [facility] Oct 21, 2017 08:13 AM QUIT TOBACCO USE IN PAST YEAR [place] [facility] [facility] Dec 30, 2016 08:28 AM QUIT TOBACCO USE 1-7 YEARS AGO [place] [facility] [place] [facility] Jun 04, 2016 08:43 AM QUIT TOBACCO USE 1-7 YEARS AGO [facility] [place] [facility] May 17, 2015 08:45 AM QUIT TOBACCO USE 1-7 YEARS AGO quit 2 years ago. [place] [facility] [place] [facility] Jun 07, 2014 09:25 AM QUIT TOBACCO USE 1-7 YEARS AGO [place] [facility] [place] [facility] November 30, 2013 08:44 AM QUIT TOBACCO USE IN PAST YEAR [facility] [place] [facility] May 22, 2013 10:10 AM QUIT TOBACCO USE IN PAST YEAR [place] [facility] [place] [facility] December 01, 2012 01:54 PM QUIT TOBACCO USE IN PAST YEAR [facility] [place] [facility] Jun 07, 2012 08:16 AM V1-PT DECLINES TOBACCO CESSATION MEDS [facility] [place] [facility] Jun 07, 2012 08:16 AM V1-PT THINKING ABOUT QUIT TOBACCO USE [facility] [place] [facility] Jan 05, 2012 09:00 AM CURRENT SMOKER intermittenly [facility] [place] [facility] Jan 05, 2012 09:00 AM V1-PT DECLINES REF TO TOBACCO CESS PRGM [facility] [place] [facility] Jan 05, 2012 09:00 AM V1-PT DECLINES TOBACCO CESSATION MEDS [facility] [place] [facility] Jan 05, 2012 09:00 AM V1-PT THINKING ABOUT QUIT TOBACCO USE [facility] [place] [facility] Feb 17, 2011 09:52 AM V1-PT DECLINES TOBACCO CESSATION MEDS [facility] [place] [facility] Feb 17, 2011 09:52 AM V1-PT THINKING ABOUT QUIT TOBACCO USE [facility] [place] [facility] Aug 13, 2010 11:31 AM QUIT TOBACCO USE IN PAST YEAR [place] [facility] [place] [facility] Feb 19, 2010 01:26 PM QUIT TOBACCO USE IN PAST YEAR [place] [facility] [place] [facility] Sep 13, 2009 11:04 AM QUIT TOBACCO USE IN PAST YEAR [place] [facility] [place] [facility] Feb 05, 2009 08:29 AM V1-PT DECLINES REF TO TOBACCO CESS PRGM [place] [facility] [place] [facility] Feb 05, 2009 08:29 AM V1-PT DECLINES TOBACCO CESSATION MEDS [facility] [place] [facility] Feb 05, 2009 08:29 AM V1-PT THINKING ABOUT QUIT TOBACCO USE [facility] [place] [facility] Aug 22, 2008 09:04 AM QUIT TOBACCO USE IN PAST YEAR [place] [facility] [place] [facility] Mar 12, 2008 10:40 AM V1-PT DECLINES REF TO TOBACCO CESS PRGM [facility] [place] [facility] Mar 12, 2008 10:40 AM V1-PT DECLINES TOBACCO CESSATION MEDS [facility] Mar 12, 2008 10:40 AM V1-PT NOT INTERESTED IN QUIT TOBACCO USE [facility] Mar 08, 2008 09:37 AM CURRENT SMOKER smokes one pack a day for about 10 years ago. [facility] Encounter Notes: All associated encounter notes This section contains the clinical notes associated to the Encounter. Date/Time Encounter Note(s) Provider Source Jul 07, 2024 10:53 AM MENTAL HEALTH TELE PHONE ENCOUNTER NOTE: LOCAL TITLE: TELEPHONE NOTE/MENTAL HEALTH STANDARD TITLE: MENTAL HEALTH TELEPHONE ENCOUNTER NOTE DATE OF NOTE: JUL 07, 2024@10:53 ENTRY DATE: JUL 07, 2024@10:53:46 AUTHOR: ANILA MCMULLEN COSIGNER: URGENCY: STATUS: COMPLETED TELEPHONE NOTE/MENTAL HEALTH Has ADDENDA S/B: Sample called [facility] requesting early release of clonazepam (due to be released on Wed07/10/24) due to difficulty with transportation. [place] is w/c bound making it difficult to find timely/reliable rides to [place]. A/R: RN contacted [place] who reports she needs to p/u clonazepam today because she will be out by Wed07/10/24 and has no ride that day. [place] does not need the Temazepam released early because she reports she has about one week left (she does not use every night). RN requested covering MH Prescriber review to determine whether early release is allowable. RN explained to that it is up the covering Prescriber(s) to decide. verbalized understanding. in process of transferring care from [facility] (retired) to new MH Prescriber in [place]. RN will enter consult for scheduling. C: Yvonne Obrien: Piyush /divya/ ANILA MCMULLEN MSN, RN MENTAL HEALTH CLINIC REGISTERED NURSE Signed: 07/07/2024 11:00 Receipt Acknowledged By: 07/07/2024 11:24 /divya/ BAILEY ORTIZ Psychiatric Mental Health Nurse Practitioner 07/07/2024 11:06 /divya/ KOURTNEY BAILEY ADVANCED CABLE FORMER 07/07/2024 ADDENDUM STATUS: COMPLETED Based on chart review allowing [place] to fill this medication several days early appears reasonable. Medication was last filled on 06/12/24 and Consult has been submitted for [place] to be connected with a new prescriber for followup /divya/ BAILEY ORTIZ Psychiatric Mental Health Nurse Practitioner Signed: 07/07/2024 11:28 ANILA MCMULLEN [place] [facility]
--- OUTSIDE RECORDS SUMMARY | 2024-07-25 11:43 | XMS_ITS ---
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 Generated for Denys reddy/Ernie/eTransmitting on:?07/25/2024 11:42 AM EST
--- OUTSIDE RECORDS SUMMARY | 2024-07-25 11:43 | XMS_ITS | Patient Health Record ---
Author Organization [facility] [place] Address [address] [place] [address] Care Team Providers Care Dining Room Manager Name Role Phone Gal Solorio MD Primary Care Provider Unavail able Ritchie Werner Unavailable [phone] Allergies No Known Allergies Reason For Referral [...] W/U Status Risk Notes Problem Atherosclerosis of venetie ira arteries of the extremities ([id number]) Atherosclerosis of venetie ira artery of both lower extremities, with unspecified presence of clinical manifestation (I70.203) Active confirmed Plan Of Treatment Pending Test Test Name Order Date [id number] NAIL, 1-5 03/04/2023 [id number] SKIN LESIONS, 2 TO 4 03/04/20 23 [id number] DYSTROPHIC NAILS ANY # Insurance Providers Payer Name Payer Address Payer Phone Subscriber Number Group Number Insured Name Patient Relationship to Insured Coverage Start Date Coverage End Date Medicare [employer] [address] [place] [address] [phone] [id number] Sample, Brianne Self - patient is the [...]
[2024-07-25 11:59] VITALS: BP 128/74; PULSE 65; O2SAT 98
== END 2024-07-25 15:16 | disposition home or self-care (01) ==
PROVIDERS: PCP Internal Medicine; Visit Provider Internal Medicine
DX: I48.0 Paroxysmal atrial fibrillation (principal); F11.99 Opioid use, unspecified with unspecified opioid-induced disorder; N18.30 Chronic kidney disease, stage 3 unspecified; I50.33 Acute on chronic diastolic (congestive) heart failure; J96.11 Chronic respiratory failure with hypoxia; Z68.43 Body mass index [BMI] 50.0-59.9, adult; R73.9 Hyperglycemia, unspecified; D64.9 Anemia, unspecified

== ENCOUNTER 2024-08-01 15:30 | Outpatient (RCR) | payer MEDICARE, MEDICAID, SELFPAY | END 2024-09-18 13:37 | disposition home or self-care (01) | LOC: HO.WCC 15:30 | PROVIDERS: PCP Internal Medicine; Visit Provider Surgery | DX: L97.119 Non-pressure chronic ulcer of right thigh with unspecified severity (principal); T81.42XA Infection following a procedure, deep incisional surgical site, initial encounter; G62.9 Polyneuropathy, unspecified; X58.XXXA Exposure to other specified factors, initial encounter; Y93.9 Activity, unspecified; Y92.9 Unspecified place or not applicable; Y99.9 Unspecified external cause status | CPT/HCPCS: 11042; 97597 ==

== ENCOUNTER 2024-08-08 15:10 | Outpatient (AMB) | payer MEDICARE, MEDICAID, SELFPAY ==
--- NOTE | 2024-08-08 15:33 | AM.OFFWIN_ITS ---
Intake Vital Signs 08/08/24 15:39 BMI Reason not done Patient refused/unable BP 160/90 H Blood Pressure Location Lt brachial Position Sitting Pulse 76 Pulse Source Pulse Oximeter Pulse Oximetry (%) 96 Oxygen Delivery Method Nasal Cannula Intake Visit Reasons: EP edema (bilateral) sob, cough Intake Note: Patient here for swelling, exhaustion, joint pain, SOB which has been going on for about 3-4 days. Patient Tobacco Use Status: Former Tobacco user Allergies gabapentin Allergy (Mild, Verified 08/08/24 15:37) Anxiety morphine [MORPHINE] Allergy (Unknown, Verified 08/08/24 15:37) ANAPHALAXIS, anaphylaxis propofol [From Diprivan] Allergy (Verified 08/08/24 15:37) Anaphylaxis Do you need a note to return to daycare/school/sports/work: No HPI HPI Comments History of Present Illness Details This is a 64-year-old female with a past medical history of COPD currently oxygen dependent on 3 L via nasal cannula, atrial fibrillation not currently anticoagulated, hypertension, CHF and anemia presenting from home for evaluation of increasing shortness a breath, fatigue and myalgias that she has had for the past 4-5 days. Patient also states that she has had increasing swelling in her lower extremities bilaterally with no change in her dose of Lasix which is 20 mg twice daily. Patient denies having any fevers, chills, chest pain or abdominal pain. [facility] Medical History VERN (acute kidney injury) COPD (chronic obstructive pulmonary disease) Enterococcus faecalis infection MSSA (methicillin susceptible Staphylococcus aureus) MRSA (methicillin resistant staph aureus) culture positive Encounter for management of wound VAC Chronic osteomyelitis Hypertension Iron deficiency anemia COPD (chronic obstructive pulmonary disease) Femur fracture Crohn's colitis Morbid obesity due to excess calories Closed tibia fracture Acute on chronic respiratory failure with hypoxia and hypercapnia Nonrheumatic mitral (valve) stenosis Paroxysmal atrial fibrillation Dyspnea Hypoventilation associated with obesity Pickwickian syndrome Chronic hypercapnic respiratory failure Opioid use disorder Surgical History Hx of cholecystectomy History of open reduction and internal fixation (ORIF) procedure Status post open reduction and internal fixation (ORIF) of fracture Recent surgical procedure on lower extremity Family History Other Adopted Social History Household Members: Family Household Members Other:: , Hoa. Daughter Carolyn, 21. Daughter's Boyfriend, 22. Neice, 21 Housing: House Do you presently have visiting nurse or other home services: Yes Alcohol intake: never Patient Tobacco Use Status: Former Tobacco user Years Smoked: 25 e-Cigarette/Vaping Use: Never Used Second Hand Smoke Exposure: No Advance Directives Date on File: 12/16/20 service: Yes Current occupational status: disabled Cognitive needs: No Hearing needs: No Vision needs: Yes Review of Systems Const Denies chills, Reports fatigue, Denies fever(s) and Reports malaise Eyes Reports no additional complaints ENT Reports no additional complaints Card Reports no additional complaints, Denies chest pain, Reports edema, Reports dyspnea and Reports dyspnea on exertion Resp Denies cough, Reports dyspnea and Reports dyspnea on exertion GI Reports no additional complaints Reports no additional complaints Musc Reports no additional complaints Skin/Breast Reports system reviewed and no additional complaints, except as documented Neuro Reports no additional complaints Psych Reports no additional complaints Endo Reports no additional complaints and Reports fatigue Enrique/Lymph Reports no additional complaints Aller/Immun Reports no additional complaints Physical Exam Vital Signs: Last Vital Signs Pulse 76 08/08/24 15:39 BP 160/90 H 08/08/24 15:39 Pulse Ox 96 08/08/24 15:39 Oxygen Delivery Method Nasal Cannula 08/08/24 15:39 Const General: no acute distress, well developed, alert, awake, Physically active and lethargic; No diaphoretic Nutritional Appearance: obese Orientation/consciousness: patient oriented x3 and lethargic Limitations: no limitations Resp Effort & Inspection: able to speak in complete sentences, no cough, no nasal flaring, no respiratory distress, prolonged expiratory phase and other (patient on O2 via nasal cannula) Auscultation: wheezes and diminished lung sounds Cardio Rate: regular rate Rhythm: regular rhythm Skin Other: trace pitting edema lower extremities bilaterally Neuro General: patient oriented x3 Psych Appearance: grossly normal Mental Status: mental status grossly normal Insight: Good insight present (Psych) Judgement: Good judgement present (Psych) Assessment & Plan Assessment & Plan (1) Fatigue: Code(s): R53.83 - Other fatigue Qualifiers: Fatigue type: unspecified Qualified Code(s): R53.83 - Other fatigue Plan: Patient will be transferred to the emergency department for further evaluation and care. (2) Dyspnea: Code(s): R06.00 - Dyspnea, unspecified Qualifiers: Dyspnea type: unspecified Qualified Code(s): R06.00 - Dyspnea, unspecified Plan: Given this patient's history of hyperkalemia and CHF exacerbations, patient is noted to be hypertensive and will be transferred to the emergency department for further evaluation and care so that proper imaging and laboratories can be obtained for further plan of care. RANDOLPH Caceres at [facility] is contacted about arrival via EMS. Coding Level of Care Code Est Pt Level 4 (84885) Diagnoses Fatigue, unspecified type R53.83 Fatigue type: unspecified Dyspnea, unspecified type R06.00 Dyspnea type: unspecified Time Spent (min) 30
[2024-08-08 15:39] VITALS: BP 160/90; PULSE 76; O2SAT 96
== END 2024-08-08 16:32 | disposition home or self-care (01) ==
LOC: HO.HMCWIC 15:10
PROVIDERS: PCP Internal Medicine
DX: R53.83 Other fatigue (principal); R06.00 Dyspnea, unspecified

== ENCOUNTER 2024-08-08 16:58 | Emergency (ER) | payer MEDICARE, MEDICAID, SELFPAY ==
--- NOTE | ~2024-08-08 | XR_ITS ---
CLINICAL HISTORY: sob 1 view chest x-ray Comparison: CR/SR - XR CHEST 1V - 05/21/24 03:10 EDT Findings: Bilateral interstitial prominence. There are patchy alveolar opacities in the bilateral lower lobes. No pneumothorax or large pleural effusion. Cardiac silhouette is enlarged. No acute fracture. IMPRESSION: Bilateral interstitial and patchy alveolar opacities secondary to edema and/or infection. This document has been electronically signed by: Jordyn Pond DO on 08/08/2024 18:24:29
[2024-08-08 17:06] VITALS: BP 166/53; PULSE 60; RESP 22; TEMP 36.7; O2SAT 96; BMI 49.1
--- NOTE | 2024-08-08 17:23 | ED_ITS ---
HPI - General Adult General Chief complaint: General Medical Stated complaint: SOB PT IS ON 4 LPM BASLINE Time Seen by Provider: 08/08/24 17:23 Source: patient Mode of arrival: ambulatory Limitations: no limitations History of Present Illness ED Provider: HPI narrative: Patient comes here for increased weakness and leg edema for last 3- 4 days does have history of diastolic heart failure ALEKSEY on nocturnal BiPAP, chronic hypoxic failure secondary to COPD and morbid obesity, hypertension Related Data Home Medications ?Medication ?Instructions ?Recorded ?Confirmed theophylline 400 mg 400 mg PO DAILY 01/18/23 07/25/24 capsule,extended release 24 hr (Roque-24) fluticasone fur. 100 mcg-umeclid 1 ea inhalation DAILY 04/24/24 07/25/24 62.5 mcg-vilant 25 mcg inhalat.powder (Trelegy Ellipta) furosemide 20 mg tablet 20 mg PO BID 04/24/24 07/25/24 buprenorphine HCl 2 mg sublingual 4 mg sublingual QID PRN Pain 05/21/24 07/25/24 tablet cholecalciferol (vitamin D3) 50 50 mcg PO DAILY 05/21/24 07/25/24 mcg (2,000 unit) tablet clonazepam 0.5 mg tablet 0.5 mg PO BID PRN Anxiety 05/21/24 07/25/24 diltiazem HCl 240 mg capsule,24 240 mg PO DAILY 05/21/24 07/25/24 hr,extended release omeprazole 20 mg tablet,delayed 20 mg PO DAILY 05/21/24 07/25/24 release temazepam 30 mg capsule 30 mg PO BEDTIME 05/21/24 07/25/24 Previous Rx's ?Medication ?Instructions ?Recorded oxycodone 5 mg tablet 5 mg PO Q8H PRN pain #15 tabs 05/23/24 furosemide 20 mg tablet (Lasix) 20 mg PO BID #60 tabs 08/08/24 Allergies Allergy/AdvReac Type Severity Reaction Status Date / Time gabapentin Allergy Mild Anxiety Verified 08/08/24 17:09 morphine [MORPHINE] Allergy Unknown ANAPHALAXIS, Verified 08/08/24 17:09 anaphylaxis propofol [From Diprivan] Allergy Anaphylaxis Verified 08/08/24 17:09 Review of Systems 2 Review of Systems: Yes all other systems are reviewed and are negative PMFSH Past Medical History Medical History VERN (acute kidney injury) COPD (chronic obstructive pulmonary disease) Enterococcus faecalis infection MSSA (methicillin susceptible Staphylococcus aureus) MRSA (methicillin resistant staph aureus) culture positive Encounter for management of wound VAC Chronic osteomyelitis Hypertension Iron deficiency anemia COPD (chronic obstructive pulmonary disease) Femur fracture Crohn's colitis Morbid obesity due to excess calories Closed tibia fracture Acute on chronic respiratory failure with hypoxia and hypercapnia Nonrheumatic mitral (valve) stenosis Paroxysmal atrial fibrillation Dyspnea Hypoventilation associated with obesity Pickwickian syndrome Chronic hypercapnic respiratory failure Opioid use disorder Surgical History Hx of cholecystectomy History of open reduction and internal fixation (ORIF) procedure Status post open reduction and internal fixation (ORIF) of fracture Recent surgical procedure on lower extremity Family History Family History Other Adopted Social History Social History Household Members: Family Household Members Other:: , [place]. Daughter Carolyn, 21. Daughter's Boyfriend, 22. Neice, 21 Housing: House Do you presently have visiting nurse or other home services: Yes Alcohol intake: never Patient Tobacco Use Status: Former Tobacco user Years Smoked: 25 e-Cigarette/Vaping Use: Never Used Second Hand Smoke Exposure: No Advance Directives Date on File: 12/16/20 service: Yes Current occupational status: disabled Cognitive needs: No Hearing needs: No Vision needs: Yes Physical Exam ED Vital Signs: Vital Signs - 24 hr 08/08/24 17:06 08/08/24 18:02 08/08/24 19:17 Temperature 98.0 F 98.3 F Pulse Rate 60 66 Respiratory Rate 22 H 11 L Blood Pressure 166/53 H 166/53 H 188/84 H Pulse Oximetry 96 99 Oxygen Delivery Method Nasal Cannula Nasal Cannula Oxygen Flow Rate 2 08/08/24 21:24 Temperature 98.1 F Pulse Rate 81 Respiratory Rate 19 Blood Pressure 146/87 H Pulse Oximetry 95 Oxygen Delivery Method Nasal Cannula Oxygen Flow Rate 4 BMI result Body Mass Index 49.1 Appearance: Alert. Oriented X3. No acute distress. Eyes: PERRLA, No Nystagmus ENT: Pharynx normal. Oral Mucosa moist Neck: Normal inspection. Neck supple. CVS: Normal heart rate and rhythm. Pulses normal. Respiratory: No respiratory distress. Equal air entry bilateral, no wheezing/rales/rhonchi Abdomen: Soft and nontender. Bowel sounds are present, no mass palpable, no CVA tenderness Skin: Skin warm and dry. Normal skin color. Normal skin turgor. Extremities: 3+ lower extremity edema. No calf tenderness Neuro: Oriented X 3. No motor deficit. No sensory deficit.No cerebellar signs , cranial nerves II-XII intact Medications Administered Discontinued Medications Generic Name Dose Route Start Last Admin Trade Name Freq PRN Reason Stop Dose Admin Furosemide 40 mg 08/08/24 17:53 08/08/24 18:02 Furosemide 40 Mg Tablet PO 08/08/24 17:54 40 mg ONCE ONE Administration Protocol Furosemide 20 mg 08/08/24 18:52 08/08/24 19:15 Furosemide 20 Mg/2 Ml Vial IVPUSH 08/08/24 18:53 20 mg ONCE ONE Administration Protocol Medical Decision Making Medical Decision Making [facility] Narrative: Patient is 64 years old obese with diastolic heart failure with sleep apnea on home oxygen comes here for increased shortness a breath with increased weight gain and edema patient is taking Lasix 20 mg twice a day used to take 40 mg in the past workup showed diastolic heart failure with pulmonary vascular congestion patient has received IV Lasix in the ER felt much better saturating 95% on 3 L will discharge patient home on increased dose of Lasix advised to follow up as outpatient Differential Diagnosis Differential Diagnoses: The differential diagnosis associated with the presentation includes CHF/ACS/COPD/sleep apnea/pneumonia Admission/Observation Consideration of admission/observation: Escalation of care including admission/observation considered Lab Data [facility] Lab Attestation statement: I reviewed the patient's lab results. 08/08/24 18:15 08/08/24 18:15 Labs: Lab Results 08/08/24 08/08/24 Range/Units 18:15 18:26 WBC 9.1 (4.8-10.8) X10*3/uL RBC 3.76 L (4.20-5.50) X10*6/uL Hgb 9.6 L (12.0-16.0) g/dl Hct 31.2 L (37.0-47.0) % MCV 83.0 (80.0-98.0) fL MCH 25.5 L (27.0-33.0) pg MCHC 30.8 L (31.0-35.0) g/dl RDW 14.6 (11.0-16.0) % Plt Count 233 (160-400) X10*3/uL MPV 9.8 (9.4-12.3) fL Immature Gran % (Auto) 0.4 (0.0-0.4) % Neut % (Auto) 78.5 H (45-73) % Lymph % (Auto) 13.2 L (20-40) % Brule % (Auto) 5.8 (2-11) % Eos % (Auto) 1.7 (0-4) % Baso % (Auto) 0.4 (0-2) % Lymph # (Auto) 1.2 (1.2-4.9) X10*3/uL Brule # (Auto) 0.5 (0.1-1.2) X10*3/uL Eos # (Auto) 0.2 (0.0-0.4) X10*3/uL Baso # (Auto) 0.0 (0.0-0.2) X10*3/uL Abs Immat Gran (auto) 0.04 H (0.00-0.03) X10*3/uL Absolute Neuts (auto) 7.1 (2.0-8.3) x10*3/uL Absolute Nucleated RBC 0.000 (0.0-0.012) X10*3/uL Nucleated RBC % (auto) 0.0 (0.0-0.2) /100WBC VBG pH 7.39 (7.32-7.43) VBG pCO2 72 mmHg VBG pO2 54 mmHg VBG HCO3 43 H (22-26) mmol/L VBG O2 Saturation 80.0 % VBG Base Excess 15.9 mmol/L Sodium 142 (135-145) mmol/L Potassium 4.4 (3.3-5.1) mmol/L Chloride 100 (96-108) mmol/L Carbon Dioxide 35 H (22-29) mmol/L Anion Gap 11 L (12-20) BUN 16 (9-16) mg/dL Creatinine 0.71 (0.5-1.4) mg/dL Estim Creat Clear Calc 97.1 Estimated GFR > 60 Random Glucose 104 (60-115) mg/dL Calcium 9.0 (8.4-10.2) mg/dL Magnesium 1.9 (1.6-2.6) mg/dL Total Bilirubin 0.2 (0.0-1.0) mg/dL AST 19 (5-31) U/L ALT 9 (0-31) U/L Alkaline Phosphatase 104 (39-117) U/L Troponin I High Sens 7.6 D (<3.5-17.0) ng/L B-Natriuretic Peptide 121 H (<100) pg/mL Total Protein 6.9 (6.5-8.0) g/dL Albumin 3.7 (3.5-5.0) g/dL Independent Interpretation I performed an independent interpretation of an: EKG Interpretation: Normal sinus rhythm heart rate 60 beats per minute poor progression of R-wave no acute ST-T changes no acute ischemia Radiology Impression Discussion of test interpretation with radiology: I have reviewed the radiologist's reading. Radiologist Impression: [place] [id number] XRay Report Signed Patient: Brianne Chaudhary MR#: [id number] : 1960 Acct:[id number] Age/Sex: 64 / F ADM Date: 08/08/24 Loc: .ED Attending Dr: Ordering Physician: Benito Marie MD Date of Service: 08/08/24 Procedure(s): XR chest 1V Accession Number(s): [id number] cc: Sandra Diego MD; Benito Marie MD~ CLINICAL HISTORY: sob 1 view chest x-ray Comparison: CR/SR - XR CHEST 1V - 05/21/24 03:10 EDT Findings: Bilateral interstitial prominence. There are patchy alveolar opacities in the bilateral lower lobes. No pneumothorax or large pleural effusion. Cardiac silhouette is enlarged. No acute fracture. IMPRESSION: Bilateral interstitial and patchy alveolar opacities secondary to edema and/or infection. This document has been electronically signed by: Jordyn Pond DO on 08/08/2024 18:24:29 Discharge Plan Discharge Clinical Impression: Acute on chronic heart failure with preserved ejection fraction (HFpEF) Patient Disposition: Home, Self-Care Instructions: Heart Failure (ED) Additional Instructions: Increase the dose of furosemide to 40 mg twice a day for 1 week then decrease to 40 mg in the morning and 20 mg in the evening for 1 week and then 20 mg twice a day as your usual dose. Follow up with your PCP/night monitor for further management Prescriptions: New furosemide [Lasix] 20 mg tablet 20 mg PO BID Qty: 60 0RF No Action clonazepam 0.5 mg Tablet 0.5 mg PO BID PRN (Reason: Anxiety) diltiazem HCl 240 mg Capsule,Extended Release 24 Hr 240 mg PO DAILY temazepam 30 mg Capsule 30 mg PO BEDTIME buprenorphine HCl 2 mg Tablet, Sublingual 4 mg SUBLINGUAL QID PRN (Reason: Pain) omeprazole 20 mg Tablet,Delayed Release (Dr/Ec) 20 mg PO DAILY cholecalciferol (vitamin D3) 50 mcg (2,000 unit) Tablet 50 mcg PO DAILY oxycodone 5 mg tablet 5 mg PO Q8H PRN (Reason: pain) Qty: 15 0RF Rx Instructions: Partial Fill upon patient request. Trelegy Ellipta 100-62.5-25 mcg blister with device 1 ea INHALATION DAILY furosemide 20 mg tablet 20 mg PO BID Rqoue-24 400 mg capsule,extended release 24hr 400 mg PO DAILY Interventions: ED Discharge Assessment Last Done: 08/08/24 21:24 Discharge Date/Time: 08/08/24 21:26 Print Language: Korean
[2024-08-08 18:02] VITALS: BP 166/53
[2024-08-08] MEDS: Furosemide 40 MG TABLET PO (18:02)
--- OUTSIDE RECORDS SUMMARY | 2024-08-08 18:24 | XMS_ITS | Continuity of Care Document ---
Author Name [facility] Organization [facility] Care Team Providers Care Cutter Tender Name Role Phone [facility] Unavailable Unavailable Problems Combined list of problems from Department of Defense and Veterans Affairs facilities. It does not include entries that were removed or entered in error. Problem Status Onset Date Problem Type Date of Resolution Comments Source AF- Atrial Fibrillation ([facility] 81125921) Active Condition Jan 26, 2024 Entered By: [...] obstructive pulmonary disease Active Condition Oct 18 24 Entered By: IRENE CASTILLO Comment: Dr Grewal [...] [facility] Hypertension (SNOMED CT 73870949) Active Condition [facility] Hysterectomy Active Condition Jan 03, 2009 Entered By: WENDY MADSEN Comment: -- 1994 in [place] for endometriosis, comp ov cyst [facility] [...] Long-term current use of anticoagulant Active Condition [place] Microalbuminuria Active Condition Mar 06, 2024 Entered By: IRENE CASTILLO Comment: no diabetes/longsta nding HTN- 2023 [facility] Microscopic hematuria Active Condition Apr 16, 2014 Entered By: WENDY MADSEN Comment: noted 03/08 [facility] Myocardial infarction Active Condition May 05, 2022 Entered By: WENDY MADSEN Comment: -- acute NSTEMI 05/03/22 [facility] Obesity Active Condition [facility] Opioid dependence (SNOMED CT 02612407) Active Condition Jun 27, 2018 Entered By: TAMRA STRAUSS Comment: Suboxone in community [facility] [place] [facility] Osteoarthritis of knee Active Condition Oct 25, 2014 Entered By: WENDY MADSEN Comment: -- steroid injection to left knee 10/07 Dr. Singleton [facility] Osteomyelitis of right [...] By: IRENE CASTILLO Comment: on U/S at [facility]. repeat Aug 2024 / vet wants to plan this thru community PCP [facility] Sleep apnea (SNOMED CT 16612654) Active Condition Aug 18, 2016 Entered By: WENDY MADSEN Comment: -- treated with CPAP, needs clonazepam to tolerate it [facility] Tobacco dependence, continuous (SNOMED CT 002562738) Active Condition Aug 11, 2017 Entered By: LONG VARELA Comment: persists to smoke - 08/08/2017 admitted at [facility] with COPD exacerbation [facility] Varicose Veins (ICD-9-CM 454.9) Active Condition [facility] Acute bronchitis Inactive Condition 08/06/2008 Se p 24, 2007 Entered By: WENDY MADSEN Comment: exacerbation 04/02 [facility] [place] [facility] Acute exacerbation of chronic obstructive airways disease Inactive Condition 02/24/2018 Aug 11, 2017 Entered By: LONG VARELA Comment: 08/05/17 through 08/08/17 admitted at [facility] for exacerbation. Still smoking [facility] Ankle: arthralgia * (ICD-9-CM 719.47) Inactive Condition 08/18/2016 [facility] [place] [facility] Asthma (SNOMED CT 268945467) Inactive Condition 02/24/2018 Apr 19, 2008 Entered By: WENDY MADSEN Comment: intermittent with severe exacerbations [facility] [place] [facility] Candidiasis, Oral Inactive Condition [facility] [place] [facility] Contact dermatitis due to plants Inactive Condition [facility]/18[facility] Counseling on Substance Use and Abuse (ICD-9-CM V65.42) Inactive Condition 08/06/2008 [facility] [place] [facility] Derangement of meniscus Inactive Condition 08/18/2016 Oct 25, 2014 Entered By: WENDY MADSEN Comment: -- left knee torn medial meniscus 09/09 [facility] [place] [facility] Dyspnea Inactive Condition 02/24/2018 Aug 11, 2 018 Entered By: LONG VARELA Comment: admit 08/05/17 -08/08/17 at [facility]: COPD exacerbation , CHo also showed than mild pulmonary HTN , so question of a degree of cor pulmonale though had NL LVF , mild R cadiac chamber dilated [facility] Edema * (ICD-9-CM 782.3) Inactive Condition 02/24/2018 [facility] [place] [facility] Encounter for Vocational Therapy (ICD-9-CM V57.22) Inactive Condition 01/03/2009 [facility] Hyperglycemia Inactive Condition 06/27/2018 Apr 262016 Entered By: LONG VARELA Comment: 6.8% [facility] February 2017 .Patient prefesr to recheck her l [facility] [place] [facility] Hypovolemia Inactive Condition 02/24/2018 Aug 11, 2017 Entered By: LONG VARELA Comment: 08/05/2017 -admitted to [facility] as self increased her lasix to 320 mg /day - when she had COPD exacerbation- seftreated as [facility] Hypoxemia Inactive Condition 03/22/2018 May 20, 2 017 Entered By: LONG VARELA Comment: 05/20/2017 walking 73% and rest O2 85% at [facility] . Using [facility] Obesity (SNOMED CT 706193527) Inactive Condition 06/27/2018 [facility] [place] [...] and observation for oth reasons Active Diagnosis [place] Diagnosis: ICD-10-CM E66.9 Obesity, unspecified Active Diagnosis [...] ATORY (INHAL ATION) ACTIVE GARDUNO,AL ICE 2022 [facility] [facility] APIXABAN 5MG TAB TAKE ONE TABLET BY MOUTH EVERY 12 HOURS FOR PREVENTI ON OF BLOOD CLOTS ORAL DISCONT INUED BY PROVIDE R 04/05/2024 [id number] FAYE FLOOD 2022 180 [facility] ATORVASTATI N CA 80MG TAB TAKE ONE TABLET BY MOUTH ONCE DAILY FOR CHOLESTE ROL ORAL ACTIVE 08/26/2024 [id number] 4 FAYE FLOOD 2023 90 [facility] [place] [facility] [facility] ATORVASTATI N CA 80MG TAB TAKE ONE TABLET BY MOUTH ONCE DAILY FOR CHOLESTE ROL ORAL DISCONT INUED (EDIT) 09/17/2023 [id number] 4 SORAIDA MADSEN LLIACass S 2023 30 [facility] BUPRENORPHI NE HCL 2MG TAB,SUBLING UAL DISSOLVE TWO TABLETS UNDER THE TONGUE FOUR TIMES A DAY SUBLIN GUAL ACTIVE 11/25/2024 [id number] 4 SORAIDA MADSEN LLIAM S 2023 240 [facility] BUPREN[place]I NE HCL 2MG TAB,SUBLING UAL DISSOLVE TWO TABLETS UNDER THE TONGUE FOUR TIMES A DAY SUBLIN GUAL DISCONT INUED 05/19/2024 [id number] SORAIDA MADSEN LLIAM S 2023 240 [facility] BUPR[place] NE HCL 2MG TAB,SUBLING UAL DISSOLVE ONE TABLET UNDER THE TONGUE FOUR TIMES A DAY SUBLIN GUAL DISCONT INUED (EDIT) 12/25/2023 [id number] 4 SORAIDA MADSEN LLIAM S 2022 120 [facility] BUPREN[place] NE HCL 2MG TAB,SUBLING UAL DISSOLVE ONE TABLET UNDER THE TONGUE THREE TIMES A DAY SUBLIN GUAL DISCONT INUED (EDIT) 08/21/2023 [id number] SORAIDA MADSEN LLIAM S 2022 90 [facility] CHOLECALCIF LEVI 10MCG (400UNIT) TAB TAKE ONE TABLET BY MOUTH ONCE DAILY FOR VITAMIN D DEFICIEN CY ORAL 01/04/2024 [id number] 4 SORAIDA MADSEN LLIAM S 2023 90 [facility] CHOLECALCIF LEVI 50MCG (2,000UNIT) TAB TAKE ONE TABLET BY MOUTH ONCE DAILY FOR VITAMIN SUPPLEME NTATION ORAL ACTIVE 03/07/2025 [id number] 4 FAYE FLOOD 2023 100 [facility] CLONAZEPAM 0.5MG TAB TAKE ONE TABLET BY MOUTH FOUR TIMES DAILY NEEDED ANXIETY ORAL DISCONT INUED BY PROVIDE R 09/02/2024 [id number] BAILEY ORTIZ 2024 28 [facility] CLONAZEPAM 0.5MG TAB TAKE TWO TABLETS BY MOUTH ONCE DAILY AND TAKE ONE TABLET TWICE DAILY NEEDED ANXIETY ORAL DISCONT INUED 11/15/2024 [id number] 5 JAMIE HAWKINS MD 2023 120 [facility] CLONAZEPAM 0.5MG TAB TAKE TWO TABLETS BY MOUTH ONCE DAILY AND TAKE ONE TABLET TWICE DAILY NEEDED ORAL DISCONT INUED (EDIT) 10/14/2024 [id number] 4 JAMIE HAWKINS MD 2023 120 [facility] CLONAZEPAM 0.5MG TAB TAKE TWO TABLETS BY MOUTH ONCE DAILY AND TAKE ONE TABLET TWICE DAILY NEEDED ORAL DISCONT INUED (EDIT) 08/16/2024 [id number] 4 JAMIE HAWKINS MD 2023 120 [facility] CLONAZEPAM 0.5MG TAB TAKE TWO TABLETS BY MOUTH ONCE DAILY AND TAKE ONE TABLET TWICE DAILY NEEDED FOR ANXIETY ORAL DISCONT INUED (EDIT) 07/05/2024 [id number] 4 JAMIE HAWKINS MD 2023 120 [facility] CLONAZEPAM 0.5MG TAB TAKE TWO TABLETS BY MOUTH ONCE DAILY AND TAKE ONE TABLET TWICE DAILY NEEDED FOR ANXIETY ([facility] - NEXT FILL 01/20/24) ORAL DISCONT INUED (EDIT) 01/15/2024 [id number] 4 JAMIE HAWKINS MD 2023 28 [facility] CLONAZEPAM 0.5MG TAB TAKE ONE TABLET BY MOUTH EVERY MORNING AND TAKE ONE-HALF TABLET TWICE DAILY NEEDED FOR ANXIETY ORAL DISCONT INUED 04/08/2024 [id number] 4 JAMIE HAWKINS MD 2023 60 [facility] CLONAZEPAM 0.5MG TAB TAKE ONE TABLET BY MOUTH EVERY MORNING AND TAKE ONE-HALF TABLET TWICE DAILY NEEDED ANXIETY ORAL DISCONT INUED (EDIT) 02/05/2024 [id number] 4 JAMIE HAWKINS MD 2023 60 [facility] CLONAZEPAM 0.5MG TAB TAKE ONE TABLET BY MOUTH EVERY MORNING AND TAKE ONE-HALF TABLET TWICE DAILY NEEDED ORAL DISCONT INUED (EDIT) 01/01/2024 [id number] 3 JAMIE HAWKINS MD 2022 28 [facility] CLONAZEPAM 0.5MG TAB TAKE ONE TABLET BY MOUTH EVERY MORNING AND TAKE ONE-HALF TABLET TWICE DAILY NEEDED ORAL DISCONT INUED (EDIT) 12/15/2023 [id number] 3 JAMIE HAWKINS MD 2022 60 [facility] CLONAZEPAM 0.5MG TAB TAKE ONE TABLET BY MOUTH EVERY MORNING AND TAKE ONE-HALF TABLET TWICE DAILY NEEDED ORAL DISCONT INUED (EDIT) 10/01/2023 [id number] 3 JAMIE HAWKINS MD 2022 60 [facility] CLONAZEPAM 1MG TAB TAKE ONE TABLET BY MOUTH TWICE DAILY ORAL 05/13/2024 [id number] 4 FAYE FLOOD 2023 6 [facility] DILTIAZEM (EQV-TIAZAC AB4) 180MG 24HR CAP TAKE ONE CAPSULE BY MOUTH ONCE DAILY ORAL DISCONT INUED (EDIT) 08/12/2024 [id number] 4 FAYE FLOOD 2023 90 [facility] DILTIAZEM (EQV-TIAZAC AB4) 180MG 24HR CAP TAKE ONE CAPSULE BY MOUTH ONCE DAILY ORAL DISCONT INUED 08/11/2023 [id number] 3 SORAIDA MADSEN S 2022 90 [facility] DILTIAZEM (EQV-TIAZAC AB4) 240MG 24HR CAP TAKE ONE CAPSULE BY MOUTH ONCE DAILY ORAL ACTIVE 09/08/2024 [id number] 4 FAYE FLOOD 2023 90 [facility] DIPHTHERIA TOXOID 2UNT/TETANU S TOXOID 5UNT/0.5ML ADSORBED INJ INJECT 0.5ML INTRAMUS CULARLY NOW INTRAM USCULA R ACTIVE WILLIAM HE 2018 [facility] FERROUS GLUCONATE 324MG TAB TAKE ONE TABLET BY MOUTH ONCE DAILY TO SUPPLEME NT IRON ORAL ACTIVE 03/07/2025 [id number] 4 FAYE FLOOD 2023 100 [facility] HYDROMORPHO NE HCL 2MG TAB TAKE ONE TABLET BY MOUTH TWICE DAILY AND TAKE TWO TABLETS THREE TIMES A DAY FOR PAIN ORAL DISCONT INUED BY PROVIDE R 08/12/2024 [id number] 4 SORAIDA MADSEN LLIAM S 2023 224 [facility] LISINOPRIL 30MG TAB TAKE TWO TABLETS BY MOUTH ONCE DAILY TO CONTROL BLOOD PRESSURE ORAL ACTIVE 01/17/2025 [id number] 4 FAYE FLOOD 2023 180 [facility] LISINOPRIL 40MG TAB TAKE ONE TABLET BY MOUTH ONCE DAILY TO CONTROL BLOOD PRESSURE ORAL DISCONT INUED (EDIT) 08/26/2024 [id number] 4 FAYE FLOOD 2023 90 [facility] LISINOPRIL 40MG TAB TAKE ONE TABLET BY MOUTH ONCE DAILY TO CONTROL BLOOD PRESSURE ORAL DISCONT INUED (EDIT) 04/15/2024 [id number] JENNY LEZAMA 2022 90 [facility] OMEPRAZOLE 20MG CAP,EC TAKE 1 CAPSULE BY MOUTH ONCE DAILY ORAL ACTIVE SORAIDA MADSEN LLIAM S 2022 [facility] OXYCODONE HCL 10MG/ACETAM INOPHEN 325MG TAB TAKE 1 TABLET BY MOUTH FIVE TIMES A DAY NEEDED FOR PAIN ORAL ACTIVE 08/26/2024 [id number] 5 SORAIDA MADSEN LLIAM S 2024 140 [facility] [place] [facility] OXYCODONE HCL 10MG/ACETAM INOPHEN 325MG TAB TAKE 1 TABLET BY MOUTH FOUR TIMES DAILY NEEDED FOR PAIN ORAL DISCONT INUED BY PROVIDE R 07/16/2024 [id number] 4 JESSIKA KHAN 2023 112 [facility] [place] [facility] OXYCODONE HCL 10MG/ACETAM INOPHEN 325MG TAB TAKE 1 TABLET BY MOUTH FOUR TIMES DAILY NEEDED NEXT FILL 07/20 ORAL DISCONT INUED BY PROVIDE R 07/15/2024 [id number] SORAIDA MADSEN LLIAM S 2023 112 [facility] OXYCODONE HCL 10MG/ACETAM INOPHEN 325MG TAB TAKE 1 TABLET BY MOUTH FOUR TIMES DAILY NEEDED FOR PAIN ORAL DISCONT INUED 06/24/2024 [id number] 4 SORAIDA MADSEN LLIAM S 2023 112 [facility] OXYCODONE HCL 10MG/ACETAM INOPHEN 325MG TAB TAKE 1 TABLET BY MOUTH THREE TIMES DAILY NEEDED ORAL DISCONT INUED 06/15/2024 [id number] SORAIDA MADSEN LLIAM S 2023 30 [facility] OXYCODONE HCL 5MG TAB TAKE TWO TABLETS BY MOUTH THREE TIMES DAILY NEEDED FOR PAIN (NEXT FILL 06/09/24 ) ORAL ACTIVE 06/09/2024 [id number] 4 SORAIDA MADSEN LLIAM S 2023 180 [facility] OXYCODONE HCL 5MG TAB TAKE TWO TABLETS BY MOUTH FOUR TIMES DAILY NEEDED FOR PAIN ORAL DISCONT INUED 04/05/2024 [id number] 4 [facility] 2023 224 [facility] OXYCODONE HCL 5MG TAB TAKE FOUR TABLETS BY MOUTH THREE TIMES DAILY NEEDED FOR PAIN [NEXT FILL 4] ORAL DISCONT INUED (EDIT) 02/03/2024 [id number] 4 SORAIDA MADSEN LLIAM S 2023 336 [facility] [place] OXYCODONE HCL 5MG TAB TAKE FOUR TABLETS BY MOUTH THREE TIMES DAILY NEEDED FOR PAIN [NEXT FILL 4] ORAL DISCONT INUED 01/06/2024 [id number] SORAIDA MADSEN LLIAM S 2023 336 [facility] OXYCODONE HCL 5MG TAB TAKE FOUR TABLETS BY MOUTH FOUR TIMES DAILY NEEDED FOR PAIN [NEXT FILL 11/05/19] ORAL DISCONT INUED 11/05/2023 [id number] 4 SORAIDA MADSEN LLIAM S 2023 448 [facility] [place] OXYCODONE HCL 5MG TAB TAKE FOUR TABLETS BY MOUTH FOUR TIMES DAILY NEEDED FOR PAIN [NEXT FILL 4] ORAL DISCONT INUED 10/22/2023 [id number] 4 SORAIDA MADSEN LLIAM S 2023 240 [facility] OXYCODONE HCL 5MG TAB TAKE FOUR TABLETS BY MOUTH FOUR TIMES DAILY NEEDED FOR PAIN [NEXT FILL 09/24/2023 ] ORAL DISCONT INUED 10/08/2023 [id number] SORAIDA MADSEN LLIAM S 2023 240 [facility] OXYCODONE HCL 5MG TAB TAKE TWO TABLETS BY MOUTH FOUR TIMES DAILY NEEDED FOR PAIN [NEXT FILL 09/21/23 ] ORAL DISCONT INUED 09/17/2023 [id number] SORAIDA MADSEN LLIAM S 2023 224 [facility] [place] OXYCODONE HCL 5MG TAB TAKE TWO TABLETS BY MOUTH FOUR TIMES DAILY NEEDED FOR PAIN [NEXT FILL 08/24/23] ORAL DISCONT INUED 08/26/2023 [id number] SORAIDA MADSEN LLIAM S 2023 224 [facility] OXYCODONE HCL 5MG TAB TAKE TWO TABLETS BY MOUTH FOUR TIMES DAILY NEEDED NEXT FILL 04/17 ORAL 04/29/2024 [id number] 4 LAURA KHANH B 2023 112 [facility] [place] OXYCODONE HCL 5MG TAB TAKE TWO TABLETS BY MOUTH FOUR TIMES DAILY NEEDED FOR PAIN [NEXT FILL 03/01/2024 ] ORAL 02/25/2024 [id number] 4 CUTLER,WI LLIAM S 2023 224 [facility] OXYCODONE HCL 5MG TAB TAKE FOUR TABLETS BY MOUTH THREE TIMES DAILY NEEDED FOR PAIN [NEXT FILL 4] ORAL 12/04/2023 [id number] 4 CUTLER,WI LLIAM S 2023 336 [facility] OXYCODONE HCL 5MG TAB TAKE TWO TABLETS BY MOUTH FOUR TIMES DAILY NEEDED FOR PAIN [NEXT FILL 07/22/23 ] ORAL 07/24/2023 [id number] 3 CUTLER,WI LLIAM S 2022 224 [facility] OXYCODONE HCL 5MG TAB TAKE TWO TABLETS BY MOUTH FIVE TIMES A DAY FOR PAIN NEXT FILL 06/17/23 ORAL 06/12/2023 [id number] CUTLER,WI LLIAM S 2022 280 [facility] OXYGEN MISCELLANEO US USE DIRECTED NOT APPLIC ABLE ACTIVE CUTLER,WI LLIAM S 2012 [facility] SULFAMETHOX AZOLE 800MG/TRIME THOPRIM 160MG TAB TAKE ONE TABLET BY MOUTH TWICE DAILY ORAL ACTIVE CUTLER,WI LLIAM S 2022 [facility] TEMAZEPAM 30MG CAP TAKE ONE CAPSULE BY MOUTH AT BEDTIME NEEDED *NEXT FILL 2/6 ORAL ACTIVE 02/03/2025 [id number] 5 BAILEY ORTIZ 2024 30 [facility] TEMAZEPAM 30MG CAP TAKE ONE CAPSULE BY MOUTH AT BEDTIME NEEDED SLEEP ORAL DISCONT INUED 11/15/2024 [id number] 4 JAMIE HAWKINS MD 2023 30 [facility] TEMAZEPAM 30MG CAP TAKE ONE CAPSULE BY MOUTH AT BEDTIME NEEDED SLEEP ORAL DISCONT INUED (EDIT) 10/14/2024 [id number] 4 JAMIE HAWKINS MD 2023 30 [facility] TEMAZEPAM 30MG CAP TAKE ONE CAPSULE BY MOUTH AT BEDTIME NEEDED FOR SLEEP ORAL DISCONT INUED (EDIT) 07/05/2024 [id number] 4 JAMIE HAWKINS MD 2023 30 [facility] TEMAZEPAM 30MG CAP TAKE ONE CAPSULE BY MOUTH AT BEDTIME NEEDED FOR SLEEP ORAL DISCONT INUED (EDIT) 04/08/2024 [id number] 4 JAMIE HAWKINS MD 2023 30 [facility] TEMAZEPAM 30MG CAP TAKE ONE CAPSULE BY MOUTH AT BEDTIME NEEDED ORAL DISCONT INUED (EDIT) 10/21/2023 [id number] 4 JAMIE HAWKINS MD 2023 13 [facility] TEMAZEPAM 30MG CAP TAKE ONE CAPSULE BY MOUTH AT BEDTIME NEEDED ORAL DISCONT INUED (EDIT) 12/15/2023 [id number] 4 JAMIE HAWKINS MD 2022 30 [facility] TEMAZEPAM 30MG CAP TAKE ONE CAPSULE BY MOUTH AT BEDTIME NEEDED ORAL DISCONT INUED (EDIT) 10/01/2023 [id number] 3 JAMIE HAWKINS MD 2022 30 [facility] THEOPHYLLIN E 400MG 24HR TAB,SA TAKE ONE TABLET BY MOUTH ONCE DAILY ORAL 03/13/2024 [id number] 3 FAYE FLOOD 2022 90 [facility] UMECLIDINIU M 62.5MCG/MANISH ANTEROL 25MCG/ACTUA T INH,ORAL,30 D INHALE 1 INHALATI ON BY MOUTH ONCE DAILY RESPIR ATORY (INHAL ATION) ACTIVE Evi STRAUSS 2017 [facility] [place] [facility] Allergies, Adverse Reactions, Alerts Combined list of allergies from Department of Defense and Veterans Affairs facilities. It does not include entries that were removed or entered in error. Substance Category Reaction Severity Reaction type Status Date Reported Comments Source DULOXETINE Propensity to adverse reactions to drug (finding) Anxiety MODERATE active 3 [facility] GABAPENTIN Propensity to adverse reactions to drug (finding) TARDIVE MYOCLONUS active 1 [facility] MORPHINE Propensity to adverse reactions to drug (finding) Anaphylaxis active 8 [facility] [place] [facility] Immunizations Combined list of available immunizations from the Department of Defense and Veterans Affairs facilities. Immunization Series Date Given Administered By Site Reaction Lot Number CVX Code Drug Relay Checker Status Comments Source COVID-19 (MODERNA), MRNA, LNP-S, PF, 50 MCG/0.5 ML (AGES 12+ YEARS) 2023 PRABHU RING E RIGHT DELTO ID [id number] 312 complet ed [facility] INFLUENZA, HIGH-DOSE, TRIVALENT, PF 2023 PRABHU RING E RIGHT DELTO ID [id number] 135 complet ed [facility] [place] [facility] COVID-19 (MODERNA), MRNA, LNP-S, PF, 50 MCG/0.5 ML (AGES 12+ YEARS) 4 2023 OREN CAZARES RIGHT DELTO ID [id number] 312 complet ed [facility] INFLUENZA, INJECTABLE, QUADRIVALENT, PRESERVATIVE FREE 2022 OREN CAZARES RIGHT DELTO ID [id number] 150 complet ed [facility] [place] [facility] COVID-19 (MODERNA), MRNA, LNP-S, PF, 100 MCG OR 50 MCG DOSE 3 2020 207 complet ed MOD; [id number]; 2 [facility] [place] COVID-19 (MODERNA), MRNA, LNP-S, PF, 100 MCG/0.5 ML DOSE 2 2020 207 complet ed [facility] COVID-19 (MODERNA), MRNA, LNP-S, PF, 100 MCG/0.5 ML DOSE 1 2020 207 complet ed MOD; [id number]; 1 [facility] [place] [...] HCS DTAP, UNSPECIFIED FORMULATION 2010 ZACKERY CHANDLER YASMEEN 107 complet ed [facility] [...] 16, 2024 01:45 PM Reporting Lab: [facility] [address] [id number] Performing Lab: [facility] [place] [address] [address] [facility] ALCOHOL, ETHYL URINE PANEL PH OF URINE [...] May 16, 2024 01:45 PM Reporting Lab: [facility] [place] [facility] [address] [facility] [address] Performing Lab: [facility] [place] [facility] [address] [facility] [address] [facility] [facility] ALCOHOL, ETHYL URINE PANEL CREATININE [MASS/VOLU ME] [...] May 16, 2024 01:45 PM Reporting Lab: [facility] [place] [address] [address] Performing Lab: [facility] [place] [address] [address] [facility] [facility] ALCOHOL, ETHYL URINE PANEL SPECIFIC GRAVITY OF [...] May 16, 2024 01:45 PM Reporting Lab: [facility] [place] [address] [address] Performing Lab: [facility] [address] [facility] AMPHETAM MICHELE SCREEN PANEL AMPHETAMIN ES [...] May 16, 2024 01:45 PM Reporting Lab: [address] [address] Performing Lab: [address] [address] [facility] AMPHETAM MICHELE SCREEN PANEL PH OF [...] 16, 2024 01:45 PM Reporting Lab: [facility] [address] [facility]forming [facility]: [facility] [address] [facility] AMPHETAM MICHELE SCREEN PANEL CREATININE [MASS/VOLU ME] [...] 16, 2024 01:45 PM Reporting Lab[facility] [address] [address] Performing Lab: [address] [address] [facility] AMPHETAM MICHELE SCREEN PANEL SPECIFIC GRAVITY OF [...] May 16, 2024 01:45 PM Reporting Lab: [facility] [address] [facility]: [facility] [address] [address] [facility] BENZODIA ZEPINES SCREEN PANEL BENZODIAZE PINES [PRESENCE] IN URINE BY SCREEN METHOD POSITIVE - 200 05/16 Specimen Type: URINE Comment: Urine with [...] 16, 2024 01:45 PM Reporting Lab[facility] [address] [facility]: [facility] [address] [address] [facility] BENZODIA ZEPINES SCREEN PANEL PH OF URINE [...] 16, 2024 01:45 PM Reporting [facility] [address] [address] [facility]: [facility] [address] [address] [facility] BENZODIA ZEPINES SCREEN PANEL CREATININE [MASS/VOLU [...] 16, 2024 01:45 PM Reporting [facility] [address] [address] [facility]: [facility] [address] [address] [facility] BENZODIA ZEPINES SCREEN PANEL SPECIFIC GRAVITY OF [...] 16, 2024 01:45 PM Reporting Lab: [facility] [address] Performing Lab: [address] [address] [facility] BUPRENOR PHINE SCREEN PANEL BUPRENORPH INE [PRESENCE] IN URINE POSITIVE 05/16 HH Specimen Type: URINE Comment: Urine [...] May 16, 2024 01:45 PM Reporting Lab: [address] [address] Performing Lab: [address] [address] [facility] BUPRENOR PHINE SCREEN PANEL PH OF URINE [...] May 16, 2024 01:45 PM Reporting Lab: [facility] [place] [address] [address] Performing Lab: [facility] [place] [address] [address] [facility] BUPRENOR PHINE SCREEN PANEL CREATININE [MASS/VOLU ME] [...] May 16, 2024 01:45 PM Reporting Lab: [facility] [place] [address] [address] Performing Lab: [facility] [place] [address] [address] [facility] BUPRENOR PHINE SCREEN PANEL SPECIFIC GRAVITY [...] May 16, 2024 01:45 PM Reporting Lab: [facility] [place] [address] [address] [address] Performing Lab: [facility] [place] [address] [address] [facility] CANNABIN OIDS SCREEN PANEL CANNABINOI DS [...] May 16, 2024 01:45 PM Reporting Lab: [address] [address] Performing Lab: [address] [address] [facility] CANNABIN OIDS SCREEN PANEL PH OF URINE [...] May 16, 2024 01:45 PM Reporting Lab: [address] [address] Performing Lab: [address] [address] [facility] CANNABIN OIDS SCREEN PANEL CREATININE [MASS/VOLU ME] [...] May 16, 2024 01:45 PM Reporting Lab: [facility] [address] [address] Performing Lab: [facility] [place] [address] [address] [facility] CANNABIN OIDS SCREEN PANEL SPECIFIC GRAVITY OF [...] May 16, 2024 01:45 PM Reporting Lab: [facility] [address] [address] Performing Lab: [facility] [address] [address] [facility] COCAINE SCREEN PANEL COCAINE [PRESENCE] IN URINE [...] May 16, 2024 01:45 PM Reporting Lab: [facility] [place] [address] [address] Performing Lab: [address] [address] [facility] COCAINE SCREEN PANEL PH OF URINE 4.7 [...] May 16, 2024 01:45 PM Reporting Lab: [address] [address] Performing Lab: [address] [address] [facility] COCAINE SCREEN PANEL CREATININE [MASS/VOLU ME] IN [...] May 16, 2024 01:45 PM Reporting Lab: [address] [address] Performing Lab: [address] [address] [facility] COCAINE SCREEN PANEL SPECIFIC GRAVITY OF URINE [...] May 16, 2024 01:45 PM Reporting Lab: [address] [address] Performing Lab: [address] [address] [facility] FENTANYL SCREEN PANEL FENTANYL [PRESENCE] IN URINE [...] May 16, 2024 01:45 PM Reporting Lab: [address] [address] Performing Lab: [address] [address] [facility] FENTANYL SCREEN PANEL PH OF URINE 4.7 [...] May 16, 2024 01:45 PM Reporting Lab: [address] [address] Performing Lab: [address] [address] [facility] FENTANYL SCREEN PANEL CREATININE [MASS/VOLU ME] IN [...] NOT SENT BY LAB. Ordering Provider: NOMAN MADSNE S Report Released Date/Time: May 16, 2024 01:45 PM Reporting Lab: [address] [address] Performing Lab: [address] [address] [facility] FENTANYL SCREEN PANEL SPECIFIC GRAVITY OF URINE [...] May 16, 2024 01:45 PM Reporting Lab: [address] [address] Performing Lab: [address] [address] [facility] METHADON E SCREEN METHADONE [PRESENCE] IN URINE BY SCREEN METHOD None detected (Negativ e) 05/16 L Specimen Type: URINE Comment: BRISSA test are qualitative , any L or H flags only indicate a [facility] alert was sent. Ordering Provider: NOMAN MADSEN Report Released Date/Time: May 16, 2024 01:45 PM Reporting Lab: [facility] [address] [address] Performing Lab: [facility] [address] [facility] [address] [facility] OPIATES SCREEN PANEL OPIATES [PRESENCE] IN URINE [...] May 16, 2024 01:45 PM Reporting Lab: [facility] [address] [facility] [address] Performing Lab: [facility] [address] [facility] [address] [facility] OPIATES SCREEN PANEL PH OF URINE 4.7 [...] May 16, 2024 01:45 PM Reporting Lab: [facility] [address] Per[facility]: [facility] [address] [address] [facility] OPIATES SCREEN PANEL CREATININE [MASS/VOLU ME] IN [...] 16, 2024 01:45 PM Reporting Lab: [facility] [address] Performing Lab: [facility] [address] [facility] OPIATES SCREEN PANEL SPECIFIC GRAVITY OF URINE [...] 16, 2024 01:45 PM Reporting Lab: [facility] [address] Performing [facility]: [facility] [address] [address] [facility] OXYCODON E SCREEN PANEL OXYCODONE [PRESENCE] IN [...] May 16, 2024 01:45 PM Reporting Lab: [address] [address] Performing Lab: [address] [address] [facility] OXYCODON E SCREEN PANEL PH OF URINE [...] 16, 2024 01:45 PM Reporting Lab: [facility] [address] Performing [facility]: [facility] [address] [address] [facility] OXYCODON E SCREEN PANEL CREATININE [MASS/VOLU ME] [...] PM Reporting Lab: [facility] [place] [facility] [address] [facility] [address] Performing Lab: [facility] [place] [facility] [address] [facility] [address] [facility] OXYCODON E SCREEN PANEL SPECIFIC GRAVITY OF [...] May 16, 2024 01:45 PM Reporting Lab: [facility] [place] [facility] [address] [facility] [address] Performing Lab: [facility] [place] [facility] [address] [facility] [address] [facility] Vital Signs Combined list of inpatient and outpatient Vital Signs from Department of Defense and Veterans Affairs, ranging from 12 months to all on record, depending upon the facility. Vital Sign Value Date Comments Source SYSTOLIC BLOOD PRESSURE 118 04/13/2024 14:12:51 [facility] [place] [facility] DIASTOLIC BLOOD PRESSURE 66 04/13/2024 14:12:51 [facility] [place] [facility] PULSE OXIMETRY 95 04/13/2024 14:12:51 [facility] [place] [facility] TEMPERATURE 97 04/13/2024 14:12:51 [facility] [place] [facility] PULSE 63 04/13/2024 14:12:51 [facility] [place] [facility] RESPIRATION 19 04/13/2024 14:12:51 [facility] [...] Disposition Source [facility] Outpatient [facility]counter [id number] 02/10 [facility] Outpatient [facility]counter [id number] 02/16 [facility] [place] [place] OFFICE O/P EST MOD 30-39 MIN [id number] Diagnos is: ICD-10- CM G89.4 Chronic pain syndrom e
LANDON MADSEN S 02/17 [facility] [place] [facility] Outpatient Encounter [id number] 02/17 [facility] [place] [place] Outpatient Encounter [id number] 02/18 [facility] [place] [place] [facility] PRO PHONE CALL 11-20 MIN [id number] Diagnos is: ICD-10- CM J44.9 Chronic obstruc tive pulmona ry disease , unspeci fied
JARMOLOWIC ZROSALVA 02/18 [facility] [place] DIG ASSMT&MGMT 5-10 [id number] Diagnos is: ICD-10- CM Z04.89 Encount er for examina tion and observa tion for oth reasons
GALLITO,JESSA IE 03/03 [place] QNHP OL DIG ASSMT&MGMT 5-10 [id number] Diagnos is: ICD-10- CM Z04.89 Encount er for examina tion and observa tion for oth reasons
GITA REYES A 03/04 [facility] [place] [facility] En[facility] [id number] 03/12 [facility] En[facility] [id number] 03/24 [facility] OFFICE O/P NEW SF 15-29 MIN [id number] Diagnos is: ICD-10- CM E66.9 Obesity , unspeci fied
SUKHJINDER GARDUNO 03/25 [facility] OFF[facility] O/P EST MOD 30-39 MIN [id number] Diagnos is: ICD-10- CM G89.4 Chronic pain syndrom e
LANDON MADSEN 03/25 [facility] En[facility] [id number] 03/25 [facility] Encounter [id number] 03/25 [facility] OFF[facility] O/P EST SF 10-19 MIN [id number] Diagnos is: ICD-10- CM F41.9 Anxiety disorde r, unspeci fied
Pallavi HAWKINS MD 03/31 [facility] En[facility] [id number] 03/31 [facility] Encounter [id number] 04/05 [facility] En[facility] [id number] 04/05 [facility] Encounter [id number] 04/05 [facility] [place] QNHP OL DIG ASSMT&MGMT 5-10 [id number] Diagnos is: ICD-10- CM Z04.89 Encount er for examina tion and observa tion for oth reasons
JESSA CONTI IE 04/07 [place] [facility] En[facility] [id number] 04/07 [facility] En[facility] [id number] 04/15 [facility] Encounter [id number] 04/15 [facility] Encounter [id number] 04/20 [facility] En[facility] [id number] 04/20 [facility] Encounter [id number] 04/21 [facility] OFF[facility] O/P EST MOD 30-39 MIN [id number] Diagnos is: ICD-10- CM G89.4 Chronic pain syndrom e
CUTLANDON OROZCO S 04/21 [facility] En[facility] [id number] 04/21 [facility] En[facility] [id number] 04/23 [facility] Encounter [id number] 05/04 [facility] Encounter [id number] 05/12 [facility] Encounter [id number] 05/12 [facility] OFF[facility] O/P EST MOD 30-39 MIN [id number] Diagnos is: ICD-10- CM G89.4 Chronic pain syndrom e
LANDON MADSEN S 05/13 [facility] En[facility] [id number] 05/13 [facility] En[facility] [id number] 05/13 [facility] Encounter [id number] 05/14 [facility] En[facility] [id number] 05/17 [facility] Encounter [id number] 05/21 [facility] Encounter [id number] 05/27 [facility] En[facility] [id number] 05/31 [facility] TUBING WITH HEATING ELEMENT [id number] Diagnos is: ICD-10- CM G47.30 Sleep apnea, unspeci fied
JARMOLOWIC ZROSALVA 05/31 [facility] En[facility] [id number] 06/11 [facility] En[facility] [id number] 06/23 [facility] OFFICE O/P EST MOD 30-39 MIN [id number] Diagnos is: ICD-10- CM G89.4 Chronic pain syndrom e
LANDON MADSEN S 06/24 [facility] OFF[facility] O/P EST SF 10-19 MIN [id number] Diagnos is: ICD-10- CM F41.9 Anxiety disorde r, unspeci fied
Pallavi HAWKINS MD 07/01 [facility] En[facility] [id number] 07/02 [facility] OFFICE O/P EST HI 40-54 MIN [id number] Diagnos is: ICD-10- CM G89.29 Other chronic pain
KUPFERSCHM ID,JESSIKA B 07/05 [facility] En[facility] [id number] 07/06 [facility] En[facility] [id number] 07/07 [facility] OFF/OP EST MAY X REQ PHY/QHP [id number] Diagnos is: ICD-10- CM Z23 Encount er for immuniz ation<b r/> ROMANA WOODS 07/08 [facility] En[facility] [id number] 07/13 [facility] En[facility] [id number] 07/13 [facility] Encounter [id number] 07/13 [facility] En[facility] [id number] 07/14 [facility] Encounter [id number] 07/15 [facility] Encounter [id number] 07/27 [facility] OFFICE O/P EST LOW 20 MIN [id number] Diagnos is: ICD-10- CM G89.4 Chronic pain syndrom e
LANDON MADSEN 07/27 [facility] En[facility] [id number] 07/28 [facility] Encounter [id number] 08/03 [facility] OFFICE O/P EST SF 10 MIN [id number] Diagnos is: ICD-10- CM F41.9 Anxiety disorde r, unspeci fied
Pallavi HAWKINS MD 08/05 [facility] En[facility] [id number] 08/11 [facility] Encounter [id number] 08/11 [facility] Encounter [id number] 08/17 [facility] Encounter [id number] 08/18 [facility] OFFICE O/P EST MOD 30 MIN [id number] Diagnos is: ICD-10- CM G89.4 Chronic pain syndrom e
LANDON MADSEN S 08/18 [facility] En[facility] [id number] 08/20 [facility] En[facility] [id number] 08/23 [facility] En[facility] [id number] 08/24 [facility] COLLJ & INTERPJ DATA EA 30 D [id number] Diagnos is: ICD-10- CM G47.30 Sleep apnea, unspeci fied
ANIKA CROW 08/25 [facility] En[facility] [id number] 08/27 [facility] En[facility] [id number] 08/27 [facility] En[facility] [id number] 08/31 [facility] En[facility] [id number] 08/31 [facility] Encounter [id number] 09/01 [facility] Encounter [id number] 09/01 [facility] [id number] 09/01 [facility]counter [id number] 09/02 [facility] En[facility] [id number] 09/02 [facility] HC PRO PHONE CALL 21-30 MIN [id number] Diagnos is: ICD-10- CM Z71.89 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 ed substance abuse counselor ing<br/ > EVIE GREEN 09/02 [facility] En[facility] [id number] 09/02 [facility] Encounter [id number] 09/06 [facility] Encounter [id number] 09[facility]07 [facility] [id number] 09/07 [facility] Encounter [id number] 09/08 [facility] Encounter [id number] 09/08 [facility] OFFICE O/P EST MOD 30 MIN [id number] Diagnos is: ICD-10- CM Z23 Encount er for immuniz ation<b r/> ROMANA WOODS 09/08 [facility] MTMS BY PHARM ADDL 15 MIN [id number] Diagnos is: ICD-10- CM G89.4 Chronic pain syndrom e
LUCIE FOSTER 09/08 [facility] En[facility] [id number] 09/08 [facility] Encounter [id number] 09/08 [facility] Encounter [id number] 09[facility]10 [facility] Encounter [id number] 09/10 [facility] Encounter [id number] 09/16 [facility] Encounter [id number] 09/16 [facility] Encounter [id number] 09/17 [facility] En[facility] [id number] 09/22 [facility] Encounter [id number] 09/23 [facility] En[facility] [id number] 09/26 [facility] Encounter [id number] 09/29 [facility] En[facility] [id number] 10/04 [facility] OFFICE O/P EST MOD 30 MIN [id number] Diagnos is: ICD-10- CM G89.4 Chronic pain syndrom e
LANDON MADSEN 10/05 [facility] OFFICE O/P EST LOW 20 MIN [id number] Diagnos is: ICD-10- CM F41.9 Anxiety disorde r, unspeci fied
Pallavi HAWKINS MD 10/06 [facility] Outpatient Encounter [id number] 10/13 [facility]counter [id number] 10/18 [facility] Encounter [id number] 10/19 [facility]counter [id number] 10/24 [facility]counter [id number] 10/31 [facility]counter [id number] 11/03 [facility]counter [id number] 11/07 [facility] [id number] 11/11 [facility]counter [id number] ADRIANA CERVANTES 11/14 [facility] Encounter [id number] 11/15 [facility] O/P EST MOD 30 MIN [id number] Diagnos is: ICD-10- CM G89.4 Chronic pain syndrom e
LANDON MADSEN 11/16 [facility] En[facility] [id number] 11/16 [facility]counter [id number] 12/05 [facility] Encounter [id number] 12/05 [facility] CPAP FULL FACE MASK [id number] Diagnos is: ICD-10- CM G47.39 Other sleep apnea<b r/> ANIKA CROW 12/06 [facility] Encounter [id number] 12/06 [facility] Encounter [id number] 12/21 [facility]counter [id number] 12/26 [facility] Encounter [id number] 01/02 [facility] OFF[facility] O/P EST LOW 20 MIN [id number] Diagnos is: ICD-10- CM F41.9 Anxiety disorde r, unspeci fied
Pallavi HAWKINS MD 01/02 [facility] OFF[facility] O/P EST LOW 20 MIN [id number] Diagnos is: ICD-10- CM I10 Essenti al (primar y) hyperte nsion<b r/> ROMANA WOODS 01/16 [facility] Out[facility] Encounter [id number] 01/24 [facility] OFF[facility] O/P EST MOD 30 MIN [id number] Diagnos is: ICD-10- CM G89.4 Chronic pain syndrom e
LANDON MADSEN S 01/25 [facility]counter [id number] 02/01 [facility]counter [id number] 02/02 [facility]counter [id number] 02/07 [facility]counter [id number] 02/07 [facility] Encounter [id number] 02/08 [facility] Encounter [id number] 02/08 [facility] Encounter [id number] Diagnos is: ICD-10- CM E87.5 Hyperka lemia<b r/> LANDON MADSEN S 02/08 [facility] [id number] 02/10 [facility]counter [id number] 02/10 [facility]patient Encounter [id number] 02/10 [facility] Out[facility] Encounter [id number] 02/11 [facility] OFFICE O/P EST LOW 20 MIN [id number] Diagnos is: ICD-10- CM F41.9 Anxiety disorde r, unspeci fied
Pallavi HAWKINS MD 02/13 [facility] Out[facility] Encounter [id number] 02/23 [facility] Encounter [id number] 02/24 [facility] Encounter [id number] 03/02 [facility] Out[facility] Encounter [id number] 03/04 [facility] OFFICE O/P EST MOD 30 MIN [id number] Diagnos is: ICD-10- CM I10 Essenti al (primar y) hyperte nsion<b r/> ROMANA WOODS 03/06 [facility] Out[facility] Encounter [id number]/16 [facility] HC PRO PHONE CALL 5-10 MIN [id number] 1. Diagnos is: ICD-10- CM J44.9 Chronic obstruc tive pulmona ry disease , unspeci fied
JARMOLOWIC ZLUPEROSALVA 03/16 [facility] Out[facility] Encounter [id number] 1.03/28 [facility] Out[facility] Encounter [id number] 1.03/30 [facility] QNHP OL DIG ASSMT&MGMT 5-10 [id number] 1. Diagnos is: ICD-10- CM G89.4 Chronic pain syndrom e
TEP,SOPHOU S NEWMAN 03/30 [facility] Out[facility] Encounter [id number] 04/03 [facility] Out[facility] Encounter [id number] 04/05 [facility] Out[facility] Encounter [id number] 04/05 [facility] Out[facility] Encounter [id number] 04/06 [facility] Outpatient Encounter [id number] Diagnos is: ICD-10- CM F41.9 Anxiety disorde r, unspeci fied
Pallavi HAWKINS MD 04/13 [facility] Encounter [id number] 04/13 [facility] OFFICE O/P EST MOD 30 MIN [id number] Diagnos is: ICD-10- CM I50.9 Heart failure , unspeci fied
ROMANA WOODS 04/13 [facility] OFF/OP EST NOVEMBER X REQ PHY/QHP [id number] Diagnos is: ICD-10- CM Z23 Encount er for immuniz ation<b r/> TARYN RING 04/13 [facility] Out[facility] Encounter [id number] 04/14 [facility] Out[facility] Encounter [id number] 04/24 [facility] Out[facility] Encounter [id number] 05/03 [facility] Out[facility] Encounter [id number] 05/03 [facility] Out[facility] Encounter [id number] 05/09 [facility] Out[facility] Encounter [id number] 05/10 [facility] Outpatient Encounter [id number] 1. Diagnos is: ICD-10- CM G89.4 Chronic pain syndrom e
LANDON MADSEN S 05/10 [facility] Out[facility] Encounter [id number]/10 [facility] OFFICE O/P EST LOW 20 MIN [id number] Diagnos is: ICD-10- CM F41.9 Anxiety disorde r, unspeci fied
Pallavi HAWKINS MD 05/15 [facility] Encounter [id number] 05/15 [facility] Outpatient Encounter [id number] Diagnos is: ICD-10- CM G89.4 Chronic pain syndrom e
LANDON MADSEN S 05/16 [facility] Encounter [id number] 05/19 [facility] Out[facility] Encounter [id number] 05/21 [facility] Out[facility] Encounter [id number] 05/24 [facility] Outpatient Encounter [id number] 05/24 [facility] OFFICE O/P EST HI 40 MIN [id number] Diagnos is: ICD-10- CM G89.4 Chronic pain syndrom e
LANDON MADSEN S 05/25 [facility] Out[facility] Encounter [id number] 05/30 [facility] Out[facility] Encounter [id number] 06/01 [facility] Out[facility] Encounter [id number] 06/15 [facility] Out[facility] Encounter [id number] 06/20 [facility] Out[facility] Encounter [id number] 06/28 [facility] HC PRO PHONE CALL 11-20 MIN [id number] 1. Diagnos is: ICD-10- CM F41.9 Anxiety disorde r, unspeci fied
Janet MCMULLEN ATRICIA A 07/07 [facility] Out[facility] Encounter [id number] 07/12 [facility] OFFICE O/P EST MOD 30 MIN [id number] 1. Diagnos is: ICD-10- CM G89.4 Chronic pain syndrom e
LANDON MADSEN S 07/13 [facility] Out[facility] Encounter [id number] 07/24 [facility] Outpatient [facility]counter [id number] 07/25 [facility] PH1 ASSMT&MGMT NQHP 11-20 [id number] Diagnos is: ICD-10- CM G89.4 Chronic pain syndrom e
LANDON MADSEN S 07/27 [facility] OFFICE O/P EST HI 40 MIN [id number] Diagnos is: ICD-10- CM F41.9 Anxiety disorde r, unspeci fied
Cass ORTIZ 08/03 [facility] Social History Combined list of available smoking, tobacco, and other social history from Department of Defense and Veterans Affairs facilities. Social History Type Response Date Comment Source Tobacco smoking status NHIS VA-TOBACCO FORMER USER 03/06/2024 [facility] History of tobacco use UT-TOBACCO QUIT 15 YRS OR MORE 03/06/2024 [facility] [place] [facility] History of tobacco use VA-TOBACCO FORMER USER 03/31/2023 [facility] [facility] History of tobacco use UT-TOBACCO NEVER USED 03/25/2022 [facility] [facility] History of tobacco use UT-TOBACCO FORMER USER 03/19/2021 [facility] [place] [facility] History of tobacco use VA-TOBACCO USE DECLINED TO ANSWER 09/20/2018 [facility] [place] [facility] History of tobacco use QUIT TOBACCO USE IN PAST YEAR 10/21/2017 [facility] [place] [facility] History of tobacco use QUIT TOBACCO USE 1-7 YEARS AGO 12/30/2016 [facility] [place] [facility] History of tobacco use QUIT TOBACCO USE 1-7 YEARS AGO 06/04/2016 [facility] History of tobacco use QUIT TOBACCO USE 1-7 YEARS AGO 05/17/2015 [facility] 2 [facility] of tobacco use QUIT TOBACCO USE 1-7 YEARS AGO 06[facility]07/2014 [facility] History of tobacco use QUIT TOBACCO USE IN PAST YEAR 11/30/2013 [facility] History of tobacco use QUIT TOBACCO USE IN PAST YEAR 05/22/2013 [facility] History [facility] tobacco use QUIT TOBACCO USE IN PAST YEAR 12[facility]01/2012 [facility] History of tobacco use V1-PT DECLINES TOBACCO CESSATION MEDS 06/07/2012 [facility] History of tobacco use CURRENT SMOKER 01/05/2012 [facility]ly [facility] History of tobacco use V1-PT DECLINES TOBACCO CESSATION MEDS 02[facility]17/2011 [facility] History of tobacco use QUIT TOBACCO USE IN PAST YEAR 08/13/2010 [facility] History of tobacco use QUIT TOBACCO USE IN PAST YEAR 02/19/2010 [facility] History of tobacco use QUIT TOBACCO USE IN PAST YEAR 09/13/2009 [facility] History of tobacco use V1-PT DECLINES TOBACCO CESSATION MEDS 02/05/2009 [facility] History [facility] tobacco use QUIT TOBACCO USE IN PAST YEAR 08/22/2008 [facility] History of tobacco use V1-PT DECLINES TOBACCO CESSATION MEDS 03/12/2008 [facility] History of tobacco use CURRENT SMOKER 03/08/2008 smokes one pack a da y for about 10 years ago. [facility] Plan of Care List of future care activities from Department of [facility] facilities[facility] Additional future care activities may be listed in the Assessment and Plan section. Date/Time Care Activity Care Activity Detail Facili ty 08/24/2024 AMBULATORY - MEDICINE AMBULATORY - MEDICI [place] [facility] 09/07/2024 AMBULATORY - MEDICINE AMBULATORY - MEDICI [place] [facility] 09/28/2024 AMBULATORY - PSYCHIATRY AMBULATORY - PSYC HIATRY [facility]
[2024-08-08 18:27] LABS: MANUAL DIFF FLAG NO
[2024-08-08 18:28] LABS: Basophils Percent Auto 0.4 % (0-2); Eosinophils Absolute Auto 0.2 X10*3/uL (0.0-0.4); Eosinophils Percent Auto 1.7 % (0-4); Hematocrit 31.2 % (37.0-47.0); Hemoglobin 9.6 g/dl (12.0-16.0); Imm Gran Abs Auto 0.04 X10*3/uL (0.00-0.03); Imm Gran Pct Auto 0.4 % (0.0-0.4); Lymphocytes Absolute Auto 1.2 X10*3/uL (1.2-4.9); Lymphocytes Percent Auto 13.2 % (20-40); Mean Corpuscular HGB Conc 30.8 g/dl (31.0-35.0); Mean Corpuscular Hemoglobin 25.5 pg (27.0-33.0); Mean Platelet Volume 9.8 fL (9.4-12.3); Monocytes Absolute Auto 0.5 X10*3/uL (0.1-1.2); Monocytes Percent Auto 5.8 % (2-11); Neutrophils Absolute Auto 7.1 x10*3/uL (2.0-8.3); Neutrophils Percent Auto 78.5 % (45-73); Platelet Count 233 X10*3/uL (160-400); Red Blood Count 3.76 X10*6/uL (4.20-5.50); Red Cell Distribution Width 14.6 % (11.0-16.0); White Blood Count 9.1 X10*3/uL (4.8-10.8)
[2024-08-08 18:31] LABS: VBG Base Excess 15.9 mmol/L; VBG HCO3 43 mmol/L (22-26); VBG pCO2 72 mmHg; VBG pH 7.39 (7.32-7.43); VBG pO2 54 mmHg
--- OUTSIDE RECORDS SUMMARY | 2024-08-08 18:31 | XMS_ITS ---
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 [facility] [place] Address [address] [place] [id number] Care Team Providers Care Welfare Centre Manager Name Role Phone ROMANA CASTILLO Primary [...] Policy [facility] (MEDICAID) [facility] May 14, 2009 [id number] SAMPLE,ROCCO MOORE PATIENT [facility]ICAID [facility] May 14, 2009 [id number] SAMPLE,ROCCO MOORE PATIENT MEDICAID MEDICAID [facility] ESTEFANY Jul 26, 2018 MEDICAI D [id number] SAMPLE,ROCCO MOORE PATIENT MEDICARE (WNR) MEDICARE (M) PART A November 24, 2015 PART A [id number] SAMPLE,ROCCO MOORE PATIENT MEDICARE (WNR) MEDICARE (M) PART B November 24, 2015 PART B [id number] ROCCO QUEZADA PATIENT Selected Encounter This [...] 03, 2024 01:00 PM [facility] Aug 24, 2024 11:00 AM [facility] Sep 07, 2024 11:30 AM AMBULATORY - [facility]IC[facility] Sep 28, 2024 11:30 AM [facility] Social History: Smoking Status (Most current) [...] Rosana humphrey Mar 06, 2024 09:00 AM [place]-TOBAC[place] FORMER USER [facility] Tobacco Use History This section includes a history of the smoking, or tobacco-related health factors, that were collected on or before the date of the Encounter. The data comes from the [place] facility where the Encounter took place. Date/Time Smoking Status/Tobac co Use Comment Facility Mar 06, 2024 09:00 AM [place]-TO[place] QUIT 15 YRS OR [facility] Mar 31, 2023 11:00 AM [place] Mar 31, 2023 11:00 AM [place]-TO[place]CO QUIT 1 TO < 5 YRS [facility] Mar 25, 2022 10:30 AM VA-TOBACCO NEVER USED [place] [facility] [place] [facility] Mar 19, 2021 02:00 PM VA-TOBACCO FORMER USER [place] [facility] [place] [facility] Mar 19, 2021 02:00 PM VA-TOBACCO QUIT < [facility] Sep 20, 2018 11:24 AM VA-TOBACCO USE DECLINED TO ANSWER [place] [facility] [place] [facility] Oct 21, 2017 08:13 AM QUIT TOBACCO USE IN PAST YEAR [place] [facility] [place] [facility] Dec 30, 2016 08:28 AM QUIT TOBACCO USE 1-7 YEARS AGO [facility] [place] [facility] Jun 04, 2016 08:43 AM QUIT TOBACCO USE 1-7 YEARS AGO [facility] [place] [facility] May 17, 2015 08:45 AM QUIT TOBACCO USE 1-7 YEARS AGO quit 2 years ago. [facility] [place] [facility] Jun 07, 2014 09:25 AM QUIT TOBACCO USE 1-7 YEARS AGO [facility] [place] [facility] November 30, 2013 08:44 AM QUIT TOBACCO USE IN PAST YEAR [place] [facility] [place] [facility] May 22, 2013 10:10 AM QUIT TOBACCO USE IN PAST YEAR [place] [facility] [place] [facility] December 01, 2012 01:54 PM QUIT TOBACCO USE [facility]ST [facility] [place] [facility] Jun 07, 2012 08:16 AM V1-PT DECLINES TOBACCO CESSATION MEDS [place] [facility] [place] [facility] Jun 07, 2012 08:16 AM V1-PT THINKING ABOUT QUIT TOBACCO USE [facility] [place] [facility] Jan 05, 2012 09:00 AM CURRENT SMOKER intermittenly [place] [facility] [place] [facility] Jan 05, 2012 09:00 AM V1-PT DECLINES REF TO TOBACCO CESS PRGM [place] [facility] [place] [facility] Jan 05, 2012 09:00 AM V1-PT DECLINES TOBACCO CESSATION MEDS [facility] [place] [facility] Jan 05, 2012 09:00 AM V1-PT THINKING ABOUT QUIT [facility]ACCO [facility] Feb 17, 2011 09:52 AM V1-PT DECLINES TOBACCO CESSATION MEDS [facility] Feb 17, 2011 09:52 AM V1-PT THINKING ABOUT QUIT TOBACCO USE [facility] Aug 13, 2010 11:31 AM QUIT TOBACCO USE IN PAST [facility] Feb 19, 2010 01:26 PM QUIT TOBACCO USE IN [facility]ST [facility] Sep 13, 2009 11:04 AM QUIT TOBACCO USE IN [facility]ST [facility] Feb 05, 2009 08:29 AM V1-PT DECLINES REF TO TOBACCO CESS PRGM [facility] Feb 05, 2009 08:29 AM V1-PT DECLINES TOBACCO CESSATION MEDS [facility] Feb 05, 2009 08:29 AM V1-PT THINKING ABOUT QUIT TOBACCO USE [facility] Aug 22, 2008 09:04 AM QUIT TOBACCO USE IN PAST YEAR [facility] Mar 12, 2008 10:40 AM V1-PT DECLINES REF TO TOBACCO CESS PRGM [facility] Mar 12, 2008 10:40 AM V1-PT DECLINES TOBACCO CESSATION MEDS [facility] Mar 12, 2008 10:40 AM V1-PT NOT INTERESTED IN QUIT TOBACCO USE [facility] Mar 08, 2008 09:37 AM CURRENT SMOKER smokes one pack a day for about 10 years ago. [facility]
--- OUTSIDE RECORDS SUMMARY | 2024-08-08 18:31 | XMS_ITS | Encounter Summary ---
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 [place] Organization [facility] [facility] [place] Address [address] [place] [id number] Care Team Providers Care Chrome Worker Name Role Phone ROMANA CASTILLO Primary [...] Relationship to Policy Garcia [facility] (MEDICAID) [facility] May 14, 2009 [id number] SAMPLE,ROCCO MOORE PATIENT [facility] MEDICAID [facility] May 14, 2009 [id number] SAMPLE,ROCCO MOORE PATIENT MEDICAID MEDICAID [place] [facility] Jul 26, 2018 MEDICAI D [id number] SAMPLE,ROCCO MOORE PATIENT MEDICARE (WNR) MEDICARE (M) PART A November 24, 2015 PART A [id number] SAMPLE,ROCCO MOORE PATIENT MEDICARE (WNR) MEDICARE (M) PART B November 24, 2015 PART B [id number] [phone] ROCCO QUEZADA PATIENT Selected Encounter This [...] 01:00 PM [facility] [place] [facility] Aug 24, 2024 11:00 AM AMBULATORY - MEDICINE [facility] [place] Sep 07, 2024 11:30 AM AMBULATORY - MEDICINE [facility] Sep 28, 2024 11:30 AM [facility] Social History: Smoking Status (Most [...] Rosana humphrey Mar 06, 2024 09:00 AM PA-TOBACCO FORMER USER [facility] Tobacco Use History This section includes a history of the smoking, or tobacco-related health factors, that were collected on or before the date of the Encounter. The data comes from the [place] facility where the Encounter took place. Date/Time Smoking Status/Tobac co Use Comment Facility Mar 06, 2024 09:00 AM PA-TOBACCO QUIT 15 YRS OR MORE [facility] Mar 31, 2023 11:00 AM VA-TOBACCO FORMER USER [facility] Mar 31, 2023 11:00 AM PA-TOBACCO QUIT 1 TO < 5 YRS [facility] [place] [facility] Mar 25, 2022 10:30 AM VA-TOBACCO NEVER USED [facility] [place] [facility] Mar 19, 2021 02:00 PM VA-TOBACCO FORMER USER [facility] [place] [facility] Mar 19, 2021 02:00 PM VA-TOBACCO QUIT < 1 YEAR [facility] [place] [facility] Sep 20, 2018 11:24 AM VA-TOBACCO USE DECLINED TO ANSWER [facility] [place] [facility] Oct 21, 2017 08:13 AM QUIT TOBACCO USE IN PAST YEAR [facility] [place] [facility] Dec 30, 2016 08:28 AM QUIT TOBACCO USE 1-7 YEARS AGO [facility] [place] [facility] Jun 04, 2016 08:43 AM QUIT TOBACCO USE 1-7 YEARS AGO [facility] [place] [facility] May 17, 2015 08:45 AM QUIT TOBACCO USE 1-7 YEARS AGO quit 2 years ago. [facility] [place] [facility] Jun 07, 2014 09:25 AM QUIT TOBACCO USE 1-7 YEARS AGO [facility] [place] [facility] November 30, 2013 08:44 AM QUIT TOBACCO USE IN PAST YEAR [facility] [place] [facility] May 22, 2013 10:10 AM QUIT TOBACCO USE IN PAST YEAR [facility] [place] [facility] December 01, 2012 01:54 PM QUIT TOBACCO USE IN PAST YEAR [facility] [place] [facility] Jun 07, 2012 08:16 AM V1-PT DECLINES TOBACCO CESSATION MEDS [facility] [place] [facility] Jun 07, 2012 08:16 AM V1-PT THINKING ABOUT QUIT TOBACCO USE [facility] [place] [facility] Jan 05, 2012 09:00 AM CURRENT SMOKER intermittenly [facility] [place] [facility] Jan 05, 2012 09:00 AM V1-PT DECLINES REF TO TOBACCO CESS PRGM [facility] [place] [facility] Jan 05, 2012 09:00 AM V1-PT DECLINES TOBACCO [facility] [place] [facility] Jan 05, 2012 09:00 AM V1-PT THINKING ABOUT QUIT TOBACCO USE [facility] [place] [facility] Feb 17, 2011 09:52 AM V1-PT DECLINES TOBACCO CESSATION MEDS [facility] Feb 17, 2011 09:52 AM V1-PT THINKING ABOUT QUIT TOBACCO USE [facility] Aug 13, 2010 11:31 AM QUIT TOBACCO USE IN PAST YEAR [facility] Feb 19, 2010 01:26 PM QUIT TOBACCO USE IN PAST YEAR [facility] Sep 13, 2009 11:04 AM QUIT TOBACCO USE IN PAST YEAR [facility] Feb 05, 2009 08:29 AM V1-PT DECLINES REF TO TOBACCO CESS PRGM [facility] Feb 05, 2009 08:29 AM V1-PT DECLINES TOBACCO CESSATION MEDS [facility] Feb 05, 2009 08:29 AM V1-PT THINKING ABOUT QUIT TOBACCO USE [facility] Aug 22, 2008 09:04 AM QUIT TOBACCO USE IN PAST YEAR [facility] Mar 12, 2008 10:40 AM V1-PT DECLINES REF TO TOBACCO CESS PRGM [facility] Mar 12, 2008 10:40 AM V1-PT DECLINES TOBACCO CESSATION MEDS [facility] Mar 12, 2008 10:40 AM V1-PT NOT INTERESTED IN QUIT TOBACCO USE [facility] Mar 08, 2008 09:37 AM CURRENT SMOKER smokes one pack a day for about 10 years ago. [facility] Encounter Notes: All associated encounter notes This section contains the clinical notes associated to the Encounter. Date/Time Encounter Note(s) Provider Source Jul 24, 2024 01:38 PM ADDENDUM: LOCAL TITLE: Addendum STANDARD TITLE: ADDENDUM DATE OF NOTE: JUL 24, 2024@13:38:12 ENTRY DATE: JUL 24, 2024@13:38:13 AUTHOR: BEULAH LOPEZ COSIGNER: URGENCY: STATUS: COMPLETED health underwriter spoke with janet, gave her info from above. She asked if Dr. Madsen could call her tomorrow when he is in the office. /divya/ BEULAH LOPEZ ADVANCED MEDICAL GENETICS DIRECTOR Signed: 07/24/2024 13:38 Receipt Acknowledged By: 07/27/2024 14:11 /divya/ Wendy Madsen MD STAFF PHYSICIAN ========= --- Original Document --- 07/24/24 TELEPHONE NOTE/SPECIALTY CLINIC: health underwriter spoke with janet, she states she is taking dilaudid now and it is not helping and she is having trouble sleeping. She would like to go back to what she was on before. Janet is aware Dr. Madsen not in office until tomorrow. However, she is asking for a call back from [facility] today as she is not sleeping well. Please advise [phone] /divya/ BEULAH LOPEZ ADVANCED MEDICAL GENETICS DIRECTOR Signed: 07/24/2024 10:49 Receipt Acknowledged By: 07/24/2024 13:30 /es/ ERIC DOUGLAS CLINICAL PHARMACIST PRACTITIONER, PAIN 07/24/2024 13:16 /divya/ JESSIKA CORONEL MD PHYSICIAN 07/24/2024 ADDENDUM STATUS: COMPLETED Please instruct to continue current meds and review possible change with Dr. Madsen next week. Thank you. /divya/ JESSIKA CORONEL MD PHYSICIAN Signed: 07/24/2024 13:20 Receipt Acknowledged By: 07/25/2024 09:47 /divya/ Wendy Madsen MD STAFF PHYSICIAN 07/24/2024 13:38 /divya/ BEULAH LOPEZ ADVANCED MEDICAL GENETICS DIRECTOR 07/25/2024 ADDENDUM STATUS: COMPLETED 3 unsuccessful attempts to call patient today. Will try again on 07/27. /divya/ Wendy Madsen MD STAFF PHYSICIAN Signed: 07/25/2024 14:48 BEULAH LOPEZ [facility] [place] [facility] Jul 24, 2024 01:20 PM ADDENDUM: LOCAL TITLE: Addendum STANDARD TITLE: ADDENDUM DATE OF NOTE: JUL 24, 2024@13:20:02 ENTRY DATE: JUL 24, 2024@13:20:03 AUTHOR: JESSIKA CORONEL EXP COSIGNER: URGENCY: STATUS: COMPLETED Please instruct to continue current meds and review possible change with Dr. Madsen next week. Thank you. /divya/ JESSIKA CORONEL MD PHYSICIAN Signed: 07/24/2024 13:20 Receipt Acknowledged By: 07/25/2024 09:47 /divya/ Wendy Madsen MD STAFF PHYSICIAN 07/24/2024 13:38 /divya/ BEULAH LOPEZ ADVANCED MEDICAL GENETICS DIRECTOR ========= --- Original Document --- 07/24/24 TELEPHONE NOTE/SPECIALTY CLINIC: health underwriter spoke with janet, she states she is taking dilaudid now and it is not helping and she is having trouble sleeping. She would like to go back to what she was on before. Janet is aware Dr. Madsen not in office until tomorrow. However, she is asking for a call back from [facility] today as she is not sleeping well. Please advise [phone] /divya/ BEULAH LOPEZ ADVANCED MEDICAL GENETICS DIRECTOR Signed: 07/24/2024 10:49 Receipt Acknowledged By: 07/24/2024 13:30 /es/ ERIC DOUGLAS CLINICAL PHARMACIST PRACTITIONER, PAIN 07/24/2024 13:16 /divya/ JESSIKA CORONEL MD PHYSICIAN 07/24/2024 ADDENDUM STATUS: COMPLETED health underwriter spoke with janet, gave her info from above. She asked if Dr. Madsen could call her tomorrow when he is in the office. /isabella LOPEZ ADVANCED MEDICAL GENETICS DIRECTOR Signed: 07/24/2024 13:38 Receipt Acknowledged By: * AWAITING SIGNATURE * WENDY MADSEN SETH B [facility] [facility] Jul 24, 2024 10:47 AM TELEPHONE ENCOUNTE R NOTE: LOCAL TITLE: TELEPHONE NOTE/SPECIALTY CLINIC STANDARD TITLE: TELEPHONE ENCOUNTER NOTE DATE OF NOTE: JUL 24, 2024@10:47 ENTRY DATE: JUL 24, 2024@10:47:13 AUTHOR: BEULAH LOPEZ EXP COSIGNER: URGENCY: STATUS: COMPLETED TELEPHONE NOTE/SPECIALTY CLINIC Has ADDENDA health underwriter spoke with yudishayan, she states she is taking dilaudid now and it is not helping and she is having trouble sleeping. She would like to go back to what she was on before. shayan is aware Dr. Madsen not in office until tomorrow. However, she is asking for a call back from [facility] today as she is not sleeping well. Please advise [phone] /isabella LOPEZ ADVANCED MEDICAL GENETICS DIRECTOR Signed: 07/24/2024 10:49 Receipt Acknowledged By: 07/24/2024 13:30 /divya/ ERIC DOUGLAS CLINICAL PHARMACIST PRACTITIONER, PAIN 07/24/2024 13:16 /divya/ JESSIKA CORONEL MD PHYSICIAN 07/24/2024 ADDENDUM STATUS: COMPLETED Please instruct to continue current meds and review possible change with Dr. Madsen next week. Thank you. /divya/ JESSIKA CORONEL MD PHYSICIAN Signed: 07/24/2024 13:20 Receipt Acknowledged By: 07/25/2024 09:47 /divya/ Wendy Madsen MD STAFF PHYSICIAN 07/24/2024 13:38 /divya/ BEULAH LOPEZ ADVANCED MEDICAL GENETICS DIRECTOR 07/24/2024 ADDENDUM STATUS: COMPLETED health underwriter spoke with janet, gave her info from above. She asked if Dr. Madsen could call her tomorrow when he is in the office. /isabella LOPEZ ADVANCED MEDICAL GENETICS DIRECTOR Signed: 07/24/2024 13:38 Receipt Acknowledged By: * AWAITING SIGNATURE * WENDY MADSEN 07/25/2024 ADDENDUM STATUS: COMPLETED 3 unsuccessful attempts to call patient today. Will try again on 07/27. /divya/ Wendy Madsen MD STAFF PHYSICIAN Signed: 07/25/2024 14:48 [facility]
--- OUTSIDE RECORDS SUMMARY | 2024-08-08 18:32 | XMS_ITS ---
Author Organization [facility] Address [address] [place] [address] Care Team Providers Care Nursing Service Administrator Name Role Phone Lyndsey ORDAZ, Gal Primary Care Provider Unavail able Ritchie Werner Unavailable [phone] Rowan Nettles Unavailable [phone] Encounters Encounter Location Date Provider Diagnosis [facility] [address] [place] [address] 02/24/2023 Rowan Nettles Plan Of Treatment No Information Progress Notes * Maggie CHAUDHARYOB:[birth year] (64 yo F)Acc No.[id number]:02/24/2023 Progress Notes Patient:?Brianne CHAUDHARY Provider:?Rowan Nettles DPM :1960???Age:63 Y???Sex:Female D ate:02/24/2023 Address: [address] [place], [place] Pcp:Gal Solorio MD Subjective: * Chief Complaints: [...] Nettles DPM Date:?08/2022 Generated for Edwini barry/Ernie/eTransmitting on:?08/08/2024 06:32 PM EST
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
--- OUTSIDE RECORDS SUMMARY | 2024-08-08 18:32 | XMS_ITS | Data Portability ---
Author Organization [place] Ajay Lin Wishayan [facility], [facility] Address [address] [place] [address] Care Team Providers Care Emg Technician Name Role Phone [facility] Primary Care Pro vider Assessment Encounter Date [...] a nonoperative mind set; recheck as needed [email or web address] Not available 11/24/2023 10:54:02 02/22/2024 02/22/2024 CC [...] be taken - expectations would be possible longterm wound closure, ongoing ABX would be necessary and there would be no intent to cure the infection after fracture fixation. 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 Results Procedure: Wound Vacuum Dressing Change Description: [...] dressing regularly with wound care nurse from [facility]. -Check wound in 6-8 weeks or sooner [...] care clinic for additional input if needed. [email or web address] Not available 04/17/2024 21:48:46 06/01/2024 06/01/2024 History [...] weeks or sooner if any flare-ups occur. [email or web address] Not available 06/07/2024 22:37:13 Plan of Treatment Reminders Order Date Submit Date Provider Last Modified By Organization Details Last Modified Time Details Appointments None recorded. Lab None recorded. Referral wound care referral - Right distal lateral thigh wound, wound VAC change every 48-72 hours, with black granular foam sponge, and -125 mmHg suction. Wound tunnels distally about 4 cm, and laterally i.e. deep she is about 3-1/2 cm. 2023 024 [email or web address] Not available 09/26/202 4 07:22:36 Procedures None recorded. Surgeries None recorded. Imaging XR, femur, 2 or more view - 315 rt femur 2v new pt 2023 024 [email or web address] [facility], [address], [address], [place], [address], 4 16:27:27 XR, femur, 2 or more view - 310 rt femur 2v global 2023 024 [email or web address] [facility] Office, [address], [address], [place], [address], 4 07:22:36 Medication Orders None recorded. Patient TargetsNo targets recorded. Patient InstructionsNo instructions recorded. Reason for Referral Right distal lateral thigh w ound, wound VAC change every 48-72 hours, with black granular foam sponge, and -125 mmHg suction. Wound tunnels distally about 4 cm, and laterally i.e. deep she is about 3-1/2 cm. Referring Physician: Juanjose Dangelo, Orthopedic Surgery, [id number] Encounter Date: 04/07/2024 Results Created Date Observation Date Name Description Value Unit Range Abnormal Flag Note LastModifiedBy Organization Detail LastModifiedTime 04/07/2004/07/2024 XR, femur , 2 or more view http:/ [email or web address] ?Encry pted=s hAaTro YD8dLq bEUv6g %2BXZw aYqtaq 0bqfl% 2Fg9IQ a4ajBk vP9nXo QUaueC m3YtLR FvZlgJ JJ8mAn HZtai3 8x8432 AC0Kqa n6MU6S iKiQtr MwF INTERFACE [facility] Office [address], [place], [address], 04/07/2024 11:10:25 04/07/20 24 04/07/2024 XR, femur , 2 or more view [email or web address] ?Encry pted=s hAaTro YD8dLq bEUv6g %2BXZw aYqtaq 0bqfl% 2Fg9IQ a4ajBk vP9nXo QUaueC m3YtLR FvZlgJ JJ8mAn HZtai3 9j4602 AC0Kqa n6MU6S iKiQtr MwF INTERFACE [facility] [address], [place], [address], 04/07/2024 11:10:27 Result Notes None recorded. Problems Name Problem SNOMED Code Status Onset Date Resolution Date Notes Provider Name and Address Organization Details Recorded Time No complaints 994289913 Active Status : 'A'; Not Available [facility] 4 09:21:30 Chronic osteomyeli tis of femur 072948691 Active 2023 Katina Mills MD [address], [place], [address] , 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 4 11:52:00 Open wound of thigh 812478949 Active 2023 Katina Mills MD [address], [place], [address] , [facility] 4 16:45:16 Infection AND/OR inflammato ry reaction due to internal prosthetic device, implant AND/OR graft 19695181 Active 2023 Katina Mills MD [address], [place], [address] , [facility] 4 16:45:24 Thigh pain 98383992 Active 2023 JOHN rangel [facility] 4 13:29:20 Thigh pain 89816600 Active 2023 JOHN rangel [facility] 4 13:29:34 Pain of right thigh 2197950819953 07 Active 2023 JOHN rangel [place] [facility] 4 13:30:16 Problem Notes None recorded. Procedures Surgical History None recorded. Imaging Results Imaging Date Name Status LastModified by Organiz ation Details LastModified Time 04/07/2024 XR, femur, 2 or more view completed [facility] [address], [place], [address], 04/07/2024 11:10:25 04/07/2024 XR, femur, 2 or more view completed [facility] [address], [place], [address], 04/07/2024 11:10:27 Procedure Notes None recorded. Medical Equipment None Reported. Allergies Allergen ID Allergen Name Allergen Category Reaction Reaction Severity Criticality Documentation Date Start Date Code Code System Note Provider Name and Address Organization Details Recorded Time 14614 morphine sulfate medicatio n Not available Not available Not available 09/27/20232020 88367 RxNorm Not Available [facility] 4 12:45:16 Medications Name Sig [...] Not Available Not Available No t Available doxycycline hyclate 100 mg tablet TAKE 1 TABLET BY [...] Not Available Not Available No t Available Lokelma 10 gram oral powder packet MIX AND DRINK 10 G ORALLY 3 TIMES A DAY FOR 6 DOSES active Not Available Not Available No t Available Vitals Date Recorded Body height Body mass index (BMI) Body weight Provider Name and Address Organization Details Last Updated DateTime 11/24/2023 156.21 cm 50.2 kg/m2 712385.94 g VIKTOR ALVARESOUR [facility] 11/24/2023 09:55:18 Date Recorded Body height Body mass index (BMI) Body weight Provider Name and Address Organization Details Last Updated DateTime 02/22/2024 156.21 cm 50.2 kg/m2 665637.94 g VIKTOR ALVARESOUR [facility] 02/22/2024 14:48:54 Date Recorded Body height Body mass index (BMI) Body weight Provider Name and Address Organization Details Last Updated DateTime 04/07/2024 156.21 cm 50.2 kg/m2 401927.94 g VIKTOR MARCIALYMOUR [facility] 04/07/2024 10:56:59 Date Recorded Body height Body mass index (BMI) Body weight Provider Name and Address Organization Details Last Updated DateTime 06/01/2024 156.21 cm 50.2 kg/m2 932271.94 g VIKTOR MARCIALYMOUR [facility] 06/01/2024 14:26:08 Social History None recorded. Functional Status None recorded. Mental Status None recorded. Family History Nothing Reported. Medical History Condition Response Allergies/Hayfever Y Coronary Artery Disease N Breathing or lung disorders Y Anxiety/Depression Y Emphysema N Nerve Disorders N Thyroid Problems N COPD Y Pacemaker N Kidney/Bladder Problems N Anemia N Vascular Disease N Heart Trouble Y Heart Attack (OK) N Gastrointestinal Disease Y Cholesterol N Diabetes [...] Diagnosis/Indication Diagnosis SNOMED-CT Code Diagnosis ICD10 Code Diagnosis Note [id number] MD Cristina Morton [address] [place] [address] [address] [place] [address] 11/24/2023 09:44:05 11/24/2023 16:25:12 Fracture of femur 45946707 S72.91XD [id number] MD Cristina Morton [address] [place] [address] [address] [place] [address] 02/22/2024 14:35:57 03/20/2024 05:41:20 Chronic osteomyelitis of femur 347678917 M86.659 Infection AND/OR inflammatory reaction due to internal prosthetic device, implant AND/OR graft 48983480 T82.7XXS Open wound of thigh 1256 46951 S71.101A Chronic os teomyelitis of femur with draining sinus 3563334808 00841 M86.208 [id number] MD Cristina Ambrose [address] [place] [address] [address] [place] [address] 04/07/2024 10:50:34 04/20/2024 07:22:36 Closed fracture of shaft of femur 29658333 S72.301D Open wound of thigh 1256 92906 S71.101D [id number] MD Cristina Ambrose [address] [place] [address] [address] [place] [address] 06/01/2024 14:12:22 06/20/2024 09:07:48 Chronic osteomyelitis of right femur 8301730700 316820 M86.651 Chronic os teomyelitis of femur with draining sinus 7256956132 06182 M86.451 Health Concerns Section Related Observation LastModified by Organization Detai ls LastModified Time None Recorded Concern Status LastModified by Organization Details LastModified Time None Recorded Advance Directives Directive None Recorded Payers Encounter Date Sequence Insurance Name Policy Number Policy Garcia Covered Member ID Garcia Member ID Guarantor Name 11/24/2023 1 [place] B[place]: [facility] Sample [id number] [place] Sample 11/24/2023 2 [place] [facility] Sample [id number] [place] Sample 02/22/2024 1 [place] [facility] Sample [id number] [place] Sample 02/22/2024 2 [place] [facility] Sample [id number] [place] Sample 04/07/2024 1 [place] [facility] Sample [id number] [place] Sample 04/07/2024 2 [place] [facility] Sample [id number] [place] Sample 06/01/2024 1 [place] [facility] Sample [id number] [place] Sample 06/01/2024 2 [place] [facility] Sample [id number] [place] Sample OBGyn Episode No OBEpisode recorded.
--- OUTSIDE RECORDS SUMMARY | 2024-08-08 18:32 | XMS_ITS | Encounter Summary ---
Author Name [facility] [place] [facility] [place] [facility] [facility] [place] Address [address] [place] [address] Care Team Providers Care Raspberry Checker Name Role Phone ROMANA CASTILLO Primary [...] [facility] (MEDICAID[facility] [place]ID [place] [facility] May 14, 2009 [id number] [place] [facility] May 14, 2009 [id number] S[place] MOORE PATIENT MEDICAID MEDICAID [facility] [place] Jul 26, 2018 MEDICAI D [id number] SAMPLE,[place] MOORE PATIENT MEDICARE (WNR) MEDICARE (M) PART A November 24, 2015 PART A [id number] [place] MOORE PATIENT MEDICARE (WNR) MEDICARE (M) PART B November 24, 2015 PART B [id number] [facility] SAMPLE,[place] MOORE PATIENT Selected Encounter This section includes the information on record at [place] for the Encounter. Date/Time Encounter Type Encounter Description Reason Provider Source Jul 27, 2024 01:59 PM PH1 ASSMT&MGMT NQHP 11-20 TELEPHONE PRIMARY CARE ICD-10-CM G89.4 Chronic pain syndrome GAL MADSEN [facility] Encounter Template Text not used by [place] Assessments - Encounter Diagnoses This section includes the primary and secondary diagnoses documented for the Encounter. Date/Time Primary/Secondary Diagnosis Diagnosis Name Provider Source Jul 27, 2024 01:59 PM PRIMARY Chronic pain syndrome GAL MADSEN [facility] Plan of Treatment: Future Appointments (+ 6 months) and Future Tests (+/- 45 days) The Plan of Treatment section includes future care activities for the patient from all [place] treatmentfauc [facility]. This section includes future appointments and [...] 03, 2024 01:00 PM AMBULATORY - PSYCHIATRY [facility] Aug 24, 2024 11:00 AM AMBULATORY - MEDICINE [facility] Sep 07, 2024 11:30 AM AMBULATORY - MEDICINE [facility] Sep 28, 2024 11:30 AM AMBULATORY - PSYCHIATRY [facility] Social History: Smoking Status (Most current) [...] 06, 2024 09:00 AM VA-TOBACCO FORMER USER [facility] Tobacco Use History This section includes a history of the smoking, or tobacco-related health factors, that were collected on or before the date of the Encounter. The data comes from the [place] facility where the Encounter took place. Date/Time Smoking Status/Tobac co Use Comment Facility Mar 06, 2024 09:00 AM VA-TOBACCO QUIT 15 YRS OR MORE [place] [facility] [place] [facility] Mar 31, 2023 11:00 AM VA-TOBACCO FORMER USER [place] [facility] [place] [facility] Mar 31, 2023 11:00 AM VA-TOBACCO QUIT 1 TO < 5 YRS [place] [facility] [place] [facility] Mar 25, 2022 10:30 AM VA-TOBACCO NEVER USED [place] [facility] [place] [facility] Mar 19, 2021 02:00 PM VA-TOBACCO FORMER USER [place] [facility] [place] [facility] Mar 19, 2021 02:00 PM VA-TOBACCO QUIT < 1 YEAR [place] [facility] [place] [facility] Sep 20, 2018 11:24 AM VA-TOBACCO USE [facility] [place] [facility] Oct 21, 2017 08:13 AM QUIT TOBACCO USE IN PAST YEAR [place] [facility] [place] [facility] Dec 30, 2016 08:28 AM QUIT TOBACCO USE 1-7 YEARS AGO [place] [facility] [place] [facility] Jun 04, 2016 08:43 AM QUIT TOBACCO USE 1-7 YEARS AGO [place] [facility] [place] [facility] May 17, 2015 08:45 AM QUIT TOBACCO USE 1-7 YEARS AGO quit 2 years ago. [place] [facility] [place] [facility] Jun 07, 2014 09:25 AM QUIT TOBACCO USE 1-7 YEARS AGO [place] [facility] [place] [facility] November 30, 2013 08:44 AM QUIT TOBACCO USE IN PAST YEAR [place] [facility] [place] [facility] May 22, 2013 10:10 AM QUIT TOBACCO USE IN PAST YEAR [place] [facility] [place] [facility] December 01, 2012 01:54 PM QUIT TOBACCO USE IN PAST YEAR [place] [facility] [place] [facility] Jun 07, 2012 08:16 AM V1-PT DECLINES TOBACCO CESSATION MEDS [place] [facility] [place] [facility] Jun 07, 2012 08:16 AM V1-PT THINKING ABOUT QUIT TOBACCO USE [facility] [place] [facility] Jan 05, 2012 09:00 AM CURRENT SMOKER intermittenly [facility] [place] [facility] Jan 05, 2012 09:00 AM V1-PT DECLINES REF TO TOBACCO CESS PRGM [place] [facility] [place] [facility] Jan 05, 2012 09:00 AM V1-PT DECLINES TOBACCO CESSATION MEDS [facility] [place] [facility] Jan 05, 2012 09:00 AM V1-PT THINKING ABOUT QUIT TOBACCO USE [facility] [place] [facility] Feb 17, 2011 09:52 AM V1-PT DECLINES TOBACCO CESSATION MEDS [place] [facility] [place] [facility] Feb 17, 2011 09:52 AM V1-PT THINKING ABOUT QUIT TOBACCO USE [facility] [place] [facility] Aug 13, 2010 11:31 AM QUIT TOBACCO USE IN PAST YEAR [facility] [place] [facility] Feb 19, 2010 01:26 PM QUIT TOBACCO USE IN PAST YEAR [facility] Sep 13, 2009 11:04 AM QUIT TOBACCO USE IN PAST YEAR [facility] [place] [facility] Feb 05, 2009 08:29 AM V1-PT DECLINES REF TO TOBACCO CESS PRGM [facility] [place] [facility] Feb 05, 2009 08:29 AM V1-PT DECLINES TOBACCO CESSATION MEDS [facility] [place] [facility] Feb 05, 2009 08:29 AM V1-PT THINKING ABOUT QUIT TOBACCO USE [facility] [place] [facility] Aug 22, 2008 09:04 AM QUIT TOBACCO USE IN PAST YEAR [facility] [place] [facility] Mar 12, 2008 10:40 AM V1-PT DECLINES REF TO TOBACCO CESS PRGM [facility] [place] [facility] Mar 12, 2008 10:40 AM V1-PT DECLINES TOBACCO CESSATION MEDS [facility] [place] [facility] Mar 12, 2008 10:40 AM V1-PT NOT INTERESTED IN QUIT TOBACCO USE [place] [facility] [place] [facility] Mar 08, 2008 09:37 AM CURRENT SMOKER smokes one pack a day for about 10 years ago. [facility] [place] [facility] Encounter Notes: All associated encounter notes This section contains the clinical notes associated to the Encounter. Date/Time Encounter Note(s) Provider Source Jul 27, 2024 01:59 PM [facility]: LOCAL TITLE: PAIN CLINIC NOTE STANDARD TITLE: PAIN MEDICINE OUTPATIENT NOTE DATE OF NOTE: JUL 27, 2024@13:59 ENTRY DATE: JUL 27, 2024@13:59:53 AUTHOR: GAL MADSEN EXP COSIGNER: URGENCY: STATUS: COMPLETED Phone visit with patient. 12 minutes She says dilaudid is not working as well as oxycodone was working. She would like to switch back to oxycodone next month. She continues on buprenorphine 4 mg 4x/day. She will be resuming PT next week. Her thigh wound is finally healed up, off antibiotics. Pain is primarily in the right femur and right knee, especially at night. She is awaiting approval to start on Jardiance for weight loss. PLAN: 1. Will stop hydromorphone and resume oxycodone 10 mg up to 5x/day. 2. She will proceed with community PT next week. 3. f/u as planned 09/07. /divya/ Gal Madsen MD STAFF PHYSICIAN Signed: 07/27/2024 14:10 GAL MADSEN [place] [facility]
--- OUTSIDE RECORDS SUMMARY | 2024-08-08 18:32 | XMS_ITS ---
Author Organization [facility] [place] Address [address] [place] [address] Care Team Providers Care Bottle House Quality Control Technician Name Role Phone Gal Solorio MD Primary Care Provider Unavail able Ritchie Werner Unavailable [phone] Allergies No Known Allergies REASON FOR VISIT [...] W/U Status Risk Notes Problem Atherosclerosis of [place] arteries of the extremities ([id number]) Atherosclerosis of [place] artery of both lower extremities, with unspecified presence of clinical manifestation (I70.203) Active confirmed Vital Signs Height 5ft 1in in 03/04/2023 Weight 270 lbs 03/04/2023 BMI 51.01 kg/m2 03/04/2023 Procedures Procedure Date Ordered Date Performed Result Body Sit e 26577-ZSTTXYH NAIL, 1-5 03/04/2023 N/A 44486-HCUK SKIN LESIONS, 2 TO 4 03/04/2023 N/A N1527-CNBYKHQQ DYSTROPHIC NAILS ANY # 03/04/2023 N/A Encounters Encounter Location Date Provider Diagnosis [facility] [place] [address] [address] 03/04/2023 Ritchie Werner Atherosclerosis of [place] artery of both lower extremities, with [...] Clinical Notes Section Notes 03/04/2023 Atherosclerosis of [place] artery of both lower extremities, with [...] Treatment Pending Test Test Name Order Date 56873-BLLJSGD NAIL, 1-5 03/04/2023 06369-HCOM SKIN LESIONS, 2 TO 4 03/04/20 23 H0390-EVMIGPEL DYSTROPHIC NAILS ANY # Next Appt Details Follow Up: prn, Reason: Procedure Notes * Category Sub-Category Detail Notes Keratoma Treatment Parring or Cutting o f Benign Hyperkeratotic Lesion(s) 07758 ( 2-4 Lesions ) - The Benign [...] as necessary. Patient chooses, no pharmaceutical tx (81122) Nail Reduction Nail Reduction Trimming of dyst rophic nails performed to reduce/remove overall nail length and girth, by manual and electrical means with use of a nail nipper and/or dremel, to more viable healthy nail plate or bed tissue 6-10 (W9530-Y2) Progress Notes * Maggie CHAUDHARYOB:[birth year] (63 yo F)Acc No.[id number]:03/04/2023 Progress Notes Patient:?Brianne Chaudhary Provider:?Ritchie Werner DPM :1960???Age:63 Y???Sex:Female D ate:03/04/2023 Address:[address] [place], [place] [address] Pcp:Gal Solorio MD Subjective: * Chief Complaints: [...] * Assessment: 1.?Onychomycosis - B35.1?2.? Atherosclerosis of [place] artery of both lower extremities, with unspecified presence of clinical manifestation - I70.203 (Primary)?3.?Pain of toe of right foot - M79.674?4.?Pain of toe of left foot - M79.675?5.?Pain in right foot - M79.671?6.?Pain in right ankle and joints of right foot - M25.571?7.?Bursitis of right foot - M77.51?8.?Hallux valgus (acquired), right foot - M20.11, Chronic problem, Stable (1=3,2=4)? Plan: * Treatment: 2.?Onychomycosis?Procedure: 35975-LRMWKNB NAIL, 1-5 * Procedures:?Debride Nails 1-5:?Procedure:?Nail debridement performed extensively to reduce/remove overall nail length and girth, subungual debris, and necrotic tissue, by manual and electrical means by use of a nail nipper and/or dremel, to more viable healthy nail plate or bed tissue 1-5. Silver nitrate used for any petechial bleeding as necessary. Patient chooses, no pharmaceutical tx (76298).?Keratoma Treatment:?Parring or Cutting of Benign Hyperkeratotic Lesion(s)?93533 ( 2-4 Lesions ) - The Benign [...] DYSTROPHIC NAILS ANY #, Modifiers: XS , [id number] DEBRIDE NAIL, 1-5, Modifiers: XS 75440 TRIM SKIN LESIONS, 2 TO 4, Modifiers: [...] Provider:?Ritchie Werner DPM Date:?2022 Generated for Denys reddy/Ernie/Sandee on:?08/08/2024 06:32 PM EST History and Physical Notes * HPI [...]
--- OUTSIDE RECORDS SUMMARY | 2024-08-08 18:32 | XMS_ITS | Data Portability ---
Author Organization [facility] (formerly [facility]), Main Office Address [address] [place] [address] Care Team Providers Care Tiller Worker Name Role Phone DAY () OTHER Assessment Encounter Date Assessment Date Assessment LastModified by Organization Details LastModified Time 03/30/2019 03/30/2019 03/28/19 Na 143, K 4.9, BUN 21, Retail Agent 0.75-in hospital [email or web address] Not available 03/30/2019 11:50:52 04/03/2019 04/03/2019 03/31/19 WBC 16.2, Hgb 11.3, Hct 37.9, Plt 190, Na 144, K 3.7, BUN 23, Retail Agent 0.69, C02 42 [email or web address] Not available 04/03/2019 [...] By Organization Details Last Modified Time 03/31/2019 [id number] wound care team to evaluate leg wound myoss Not available 03/31/2019 12:48:10 Reason for Referral None Reported. Problems Name Problem SNOMED Code Status Onset Date Resolution Date Notes Provider Name and Address Organization Details Recorded Time Nxkgj-gv-ihm onic respiratory failure 04103442 Active 2018 bipap setting 16/7.9 and 5 liters of oxygen ANDREI HUTCHINSON [address], [address], [place], [address], [facility] [employer] 9 11:54:07 Chronic obstructive pulmonary disease 42551846 Active 2018 NUBIA SHINEKI ANDREI [address], [address], [place], [address], [facility] 9 11:43:00 Smoker 68080845 Active 2018 NUBIA DALTONAMYP [address], [address], [place], [address], [place] - [facility] 9 11:43:06 Bacteremia 4636116 Active 2018 NUBIA DALTON ANDREI [address], [address], [place], [address], [place] - [facility] 9 11:45:37 Crohn's disease 00401677 Active 2018 ANDREI HUTCHINSON [address], [address], [place], [address], [place] - [facility] 9 11:46:44 Chronic hepatitis C 970712653 Active 2018 ANDREI HUTCHINSON [address], [address], [place], [address], [facility] - [facility] 9 11:47:00 Asthma 339465723 Active 2018 ANDREI HUTCHINSON [address], [address], [place], [address], [facility] - [facility] 9 11:47:20 Chronic pain 03200191 Active 2018 ANDREI HUTCHINSON [address], [address], [place], [address], [facility] - [facility] 9 11:47:51 Venous stasis 58789934 Active 2018 ANDREI HUTCHINSON [address], [address], [place], [address], [place] - [facility] 9 11:48:13 Anxiety 12835516 Active 2018 ANDREI HUTCHINSON [address], [address], [place], [address], [place] - [facility] 9 11:54:52 Essential hypertension 92278655 Active 2018 ANDREI HUTCHINSON [address] [facility], [address], [place], [address], [facility] 9 12:12:54 Insomnia 543080065 Active 2018 NUBIA ANDREI HOFFMAN [address], [address], [place], [address], [facility] 9 12:13:59 Problem Notes None recorded. Medical Equipment None Reported. Allergies Allergen ID Allergen Name Allergen Category Reaction Reaction Severity Criticality Documentation Date Start Date Code Code System Note Provider Name and Address Organization Details Recorded Time [id number] [id number] 2824e morphine medicatio n Not available Not [...] 141 mm[Hg] 65 mm[Hg] ANDREI HUTCHINSON [address] [address] [facility], [address], [place], [address], [facility] 9 11:39:45 Date Recorded Heart rate Respiratory rate Oxygen saturation Oxygen saturation in Arterial blood by Pulse oximetry Inhaled oxygen flow rate Systolic blood pressure Diastolic blood pressure Provider Name and Address Organization Details Last Updated DateTime 9 74 /min 20 /min 93 % 93 % 3 L/min 115 mm[Hg] 71 mm[Hg] Milli Milton MD [address], [address], [place], [address], [facility] 9 11:57:31 Date Recorded Body temperature Heart rate Respiratory rate Oxygen saturation Oxygen saturation in Arterial blood by Pulse oximetry Inhaled oxygen flow rate Systolic blood pressure Diastolic blood pressure Provider Name and Address Organization Details Last Updated DateTime 9 98.1 [degF] 68 /min 20 /min 96 % 96 % 3 L/min 115 mm[Hg] 59 mm[Hg] ANDREI HUTCHINSON [address] [address] [facility], [address], [place], [address] [place] [facility] 9 12:31:37 Social History Question Answer Notes LastModified by Organizat ion Details LastModified Time Tobacco Smoking Status Current Every Day Smoker Not Available [facility] 05/21/2020 03:13:22 Do You Have An Advance Directive? No [id number] Information not available 05/21/2020 What Is Your Level Of Alcohol Consumption? None [id number] Information not available 05/21/2020 How Much Tobacco Do You Chew? None [id number] Information not available 05/21/2020 Do You Or Have You Ever Used E-cigarettes Or Vape? Never Used Electronic Cigarettes [id number] Information not available 05/21/2020 Do You Have A Medical Power Of Community Center Coordinator? No [id number] Information not available 05/21/2020 What Was The Date Of Your Most Recent Tobacco Screening? 03/30/2019 [id number] Information not available 05/21/2020 Do You Or Have You Ever Used Smokeless Tobacco? Never Used Smokeless Tobacco [id number] Information not available 05/21/2020 How Much Tobacco Do You Smoke? 1 PPD [id number] Information not available 05/21/2020 On What Date Was Tobacco Cessation Counseling Provided? 03/30/2019 Nicotine Patch On [id number] Information not available 05/21/2020 How Many Years Have You Smoked Tobacco? 20 [id number] Information not available 05/21/2020 Sex: Unknown Functional Status None recorded. Mental Status None recorded. Family History Nothing Reported. Medical History No medical history recorded. Gynecological HistoryNo gynecological history recorded. Obstetrics History GPAL:G 0 P 0 0 0 0 Past Encounters Encounter ID Performer Location Encounter Start Date Encounter Closed Date Diagnosis/Indication Diagnosis SNOMED-CT Code Diagnosis ICD10 Code Diagnosis Note [id number] ANDREI HUTCHINSON [address] [place] [address] [place] [address] 03/30/2019 11:27:04 04/18/2019 13:50:48 Uyoal-nf-capyujy respiratory failure 32084190 J96.22 uses bipap 16/7.9 with 5 liters of oxygenpred nisone taper q 3 daystheoph ylline anhydrous er 400 mg qdanoro ellipta 62.5-25 mcg qdbaseline o2 3 litersmoni tor respirator y status Bacteremia 1897374 R78.8 1 ceftriaxon e 2 gms iv qd til 04/17/19wil l add probioticP icc line management follow with id Chronic ob structive pulmonary disease 75040662 J41.8 see above Smoker 23334603 F17.210 nicotine patch 21 mg qdmonitor Chronic pain 40222042 G8 9.29 suboxone 8/2 tidmonitor pain Venous stasis 70270066 I 87.8 2 wounds on left legwill have wound see heremonito r Asthma 015102230 J45.99 8 see above Chronic hepatitis C 1283 11390 B18.2 in historymon itor Crohn's disease 99537486 K50.80 in historymon itor Anxiety 58977378 F41.1 clonazepam 0.5 mg qddiscusse d risk vs benefit of clonazepam with ptmonitor anxiety Essential hypertension 59698138 I10 lisinopril 20 mg qdmonitor b/p and labs Insomnia 952996464 G47.0 9 temazepam 30 mg q hsdiscusse d risk vs benefit of temazepam with pt monitor sleep [id number] Milli Milton MD [address] [place] [address] 03/31/2019 11:56:49 04/18/2019 13:53:53 Chronic obstructive pulmonary disease 83802937 J41.1 s/p recent exacerbati on with acute on chronic respirator y failureAno ro Ellipta 62.5-25 one puff dailyoxyge n at 3lpredniso ne 40 mg dailytheop hylline ER 400 mg dailywill monitor Chronic pain 54767921 G8 9.29 buprenorpi ne-naloxon e 8-2 - one film SL tidwill monitor Anxiety 27388264 F41.1 clonazepam 0.5 mg dailywill monitor Essential hypertension 72749677 I10 lisinopril 20 mg dailywill continue to monitor Smoker 33480689 F17.200 nicoderm 21 patch dailyencou rage smoking cessation Bacteremia 7500149 R78.8 1 IV ceftriaxon e 2 gm daily until 04/16/19wil l monitor Insomnia 806514897 G47.0 9 temazepam 30 mg at hs - will decrease to 15 mg at hswill monitor [id number] ANDREI HUTCHINSON [address] [address] [place] [address] 04/03/2019 12:19:28 04/18/2019 13:52:43 Bacteremia 4223224 R78.81 ceftriaxon e 2 gms iv qd til 04/17/19pro bioticPicc line management follow with id Acute-on-c hronic respiratory failure 75449569 J96.22 uses bipap 16/7.9 with 5 liters of oxygenpred nisone taper q 3 daystheoph ylline anhydrous er 400 mg qdanoro ellipta 62.5-25 mcg qdbaseline o2 3 litersfoll ow up with pulmonolog y Chronic ob structive pulmonary disease 83610846 J41.8 see above Asthma 586427502 J45.99 8 see above Smoker 03230911 F17.210 nicotine patch 21 mg qdfollow up with PCP Chronic pain 86578929 G8 9.29 suboxone 8/2 tidfollow up with PCP Venous stasis 99426735 I 87.8 2 wounds on left legfollow with PCP Chronic hepatitis C 1283 02189 B18.2 in historyfol low up with PCP Crohn's disease 91253010 K50.80 in historyfol low up with PCP Anxiety 86701723 F41.1 clonazepam 0.5 mg qdfollow up with PCP Essential hypertension 45704631 I10 lisinopril 20 mg qdfollow up with PCP Insomnia 101071896 G47.0 9 temazepam 15 mg q hsfollow up with PCP Health Concerns Section Related Observation LastModified by Organization Detai ls LastModified Time None Recorded Concern Status LastModified by Organization Details LastModified Time None Recorded Advance Directives Directive N: Payers Encounter Date Sequence Insurance Name Policy Number Policy Garcia Covered Member ID Garcia Member ID Guarantor Name 03/30/2019 1 MEDICARE B-[place]: [facility] Sample [id number] 1 [place] Sample 03/31/2019 1 MEDICARE B-[place]: [facility] Sample [id number] 1 [place] Sample 04/03/2019 1 [place] [facility] Sample [id number] 1 Brianne Sample Notes Date Note Type Note Provider Name and Address Organization Details Recorded Time 03/30/2019 text/html A 59 year old female being seen for a initial intake note. Patient presented to [facility] er with sob and cough. She received [...] respiratory failure and hepatitis c. NUBIA HOFFMAN, [facility] [address], [address], [place], [address], [facility] 03/30/2019 19:27:36 03/31/2019 text/html This 59 year old female was admitted to [facility] on 03/29/19 for continued care and rehab after [facility] for acute on chronic respiratory failure. Patient presented to [facility] ER with sob and cough as well as weakness and confusion. She had recently been injured by oxygen tank falling on left leg before long drive. Leg became swollen and infected. Patient stopped at Urgent Care and then ER on her travels. She received Rx for oral doxycycline. At [facility], she received solu-medrol, IV furosemide and updrafts [...] full code assumed Milli Milton MD [address], [address], [place], [address], [facility] [employer] [facility] 03/31/2019 12:49:04 04/03/2019 text/html A 59 year old female being seen for a discharge summary. Patient presented to [facility] er with sob and cough. She received [...] failure and hepatitis c. ANDREI HUTCHINSON [address] [facility], [address], [place], [address], [facility] [employer] 04/03/2019 14:05:15 OBGyn Episode No OBEpisode recorded.
--- OUTSIDE RECORDS SUMMARY | 2024-08-08 18:32 | XMS_ITS | Continuity of Care Document ---
Author Organization [place] - [facility], [facility] 3rd floor Address [address] [place] [address] Care Team Providers Care Circular Clerk Name Role Phone [facility] Primary Care Pro vider Assessment Encounter Date [...] record ed. Patient TargetsNo targets recorded. Patient InstructionsNo instructions recorded. Reason for Referral None Reported. 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 5646527323932 03 Active 2023 Katina Mills MD [address], [place], [address] , [facility] 4 11:52:00 Open wound of thigh 832555977 Active 2023 Katina Mills MD [address], [place], [address] , [facility] 4 16:45:16 Infection AND/OR inflammato ry reaction due to internal prosthetic device, implant AND/OR graft 68064939 Active 2023 Katina Mills MD [address], [place], [address] , [facility] 4 16:45:24 Thigh pain 19320728 Active 2023 JOHN COMFORTE null, [facility] 4 13:29:20 Thigh pain 73130429 Active 2023 JOHN COMFORTE null, [facility] 4 13:29:34 Pain of right thigh 4734416719467 07 Active 2023 JOHN COMFORTE null, [facility] 4 13:30:16 Problem Notes None recorded. Medical Equipment None Reported. Allergies Allergen ID Allergen Name Allergen Category Reaction Reaction Severity Criticality Documentation Date Start Date Code Code System Note Provider Name and Address Organization Details Recorded Time 73918 morphine sulfate medicatio n Not available Not available Not available 09/27/20232020 48871 RxNorm Not Available [facility] 4 12:45:16 Medications Name Sig Start [...] Updated DateTime 06/01/2024 156.21 cm 50.2 kg/m2 176510.94 g VIKTOR DIAZ [place] - [facility] 06/01/2024 14:26:08 Social History None recorded. Functional Status None recorded. Mental Status None recorded. Family History Nothing Reported. Medical History Condition Response Coronary Artery Disease N Anxiety/Depression Y Emphysema N COPD Y Pacemaker N Vascular Disease N Heart Trouble Y Gastrointestinal Disease Y Autoimmune disease Y Inflammatory Joint disease N Orthotics N Arthritis Y Blood Clot N Acid Reflux (GERD) Y Cancer N Stroke N Rheumatoid Arthritis N Arrhythmia Y Headaches N Fibromyalgia N Allergies/Hayfever Y Breathing or lung disorders Y Nerve Disorders N Thyroid Problems N Kidney/Bladder Problems N Anemia N Heart Attack (GA) N Cholesterol N Diabetes N Bleeding Disorder N Seizures/Epilepsy N AIDS/HIV N Congestive Heart Failure (CHF) N Asthma N Peripheral Vascular Disease Y Sleep Apnea Y Hepatitis Y Heart Disease N Pulmonary Embolism N Hypertension Y Osteoporosis N Gynecological HistoryNo gynecological history recorded. Obstetrics History GPAL:G 0 P 0 0 0 0 Past Encounters Encounter ID Performer Location Encounter Start Date Encounter Closed Date Diagnosis/Indication Diagnosis SNOMED-CT Code Diagnosis ICD10 Code Diagnosis Note [id number] MD [facility] 3rd floor [address] [place] [address] 06/01/2024 14:12:22 06/20/2024 09:07:48 Chronic osteomyelitis of right femur 3364159770 471709 M86.651 Chronic os teomyelitis of femur with draining sinus 7633932551 12541 M86.451 Health Concerns Section Related Observation LastModified by Organization Detai ls LastModified Time None Recorded Concern Status LastModified by Organization Details LastModified Time None Recorded Payers Encounter Date Sequence Insurance Name Policy Number Policy Garcia Covered Member ID Garcia Member ID Guarantor Name 06/01/2024 1 MEDICARE B-[place]: [employer] [place] Sample [id number] [place] 06/01/2024 2 [place] Sample [id number] [place] OBGyn Episode No OBEpisode recorded.
--- OUTSIDE RECORDS SUMMARY | 2024-08-08 18:33 | XMS_ITS | Patient Health Record ---
Author Organization [facility] [place] Address [address] [place] [address] Care Team Providers Care Senior Commissions Analyst Name Role Phone Gal Solorio MD Primary Care Provider Unavail able Ritchie Werner Unavailable [phone] Allergies No Known Allergies Reason For Referral [...] W/U Status Risk Notes Problem Atherosclerosis of [place] arteries of the extremities (639182382531784) Atherosclerosis of [place] artery of both lower extremities, with unspecified presence of clinical manifestation (I70.203) Active confirmed Plan Of Treatment Pending Test Test Name Order Date [id number] NAIL, 1-5 03/04/2023 [id number] SKIN LESIONS, 2 TO 4 03/04/20 23 [id number] DYSTROPHIC NAILS ANY # Insurance Providers Payer Name Payer Address Payer Phone Subscriber Number Group Number Insured Name Patient Relationship to Insured Coverage Start Date Coverage End Date Medicare National Govt S[employer] [address] [place] [address] [phone] [id number] Sample, Brianne Self - patient is the [...]
--- OUTSIDE RECORDS SUMMARY | 2024-08-08 18:33 | XMS_ITS ---
Author Organization [facility] Address [address] [place] [address] Care Team Providers Care Medical Lab Technician Name Role Phone Gal Solorio MD Primary Care Provider Unavail Ritchie Harrington Unavailable [phone] REASON FOR VISIT RS STAFF OCCUPATIONAL THERAPIST appt Encounters Encounter [facility] [place] [address] [place] [address] 02/22/2023 Ritchie Werner Plan Of Treatment No Information Progress Notes * Joann CHAUDHARYDOB:1960 ( 63 yo F)Acc No.[id number]:02/22/2023 Patient:?Joann Chaudhary :1960???Age:63 Y???Sex:Female Address:[address] [place], [address] * true * Date:? Generated for Denys reddy/Ernie/eTransmitting on:?08/08/2024 06:32 PM EST
[2024-08-08 18:34] LABS: Venous Blood Gas Refer to POC result
[2024-08-08 18:44] LABS: Alanine Aminotransferase 9 U/L (0-31); Albumin Level 3.7 g/dL (3.5-5.0); Alkaline Phosphatase 104 U/L (39-117); Anion Gap 11 (12-20); Aspartate Amino Transferase 19 U/L (5-31); Bilirubin Total 0.2 mg/dL (0.0-1.0); Blood Urea Nitrogen 16 mg/dL (9-16); Carbon Dioxide 35 mmol/L (22-29); Chloride 100 mmol/L (96-108); Creatinine Clr Calc Pharmacy 97.1; Estimated Glomerular Filt Rate > 60; Glucose Random 104 mg/dL (60-115); Magnesium 1.9 mg/dL (1.6-2.6); Potassium 4.4 mmol/L (3.3-5.1); Sodium 142 mmol/L (135-145); Total Protein 6.9 g/dL (6.5-8.0)
[2024-08-08 18:51] LABS: B Type Natriuretic Peptide 121 pg/mL (<100); Troponin-I High Sensitivity 7.6 ng/L (<3.5-17.0)
[2024-08-08] MEDS: Furosemide 20 MG/2 ML VIAL IVPUSH (19:15)
[2024-08-08 19:17] VITALS: BP 188/84; PULSE 66; RESP 11; TEMP 36.8; O2SAT 99
[2024-08-08 21:24] VITALS: BP 146/87; PULSE 81; RESP 19; TEMP 36.7; O2SAT 95
== END 2024-08-08 21:26 | disposition home or self-care (01) ==
PROVIDERS: Emergency Provider Internal Medicine; PCP Internal Medicine
DX: I11.0 Hypertensive heart disease with heart failure (principal); I50.33 Acute on chronic diastolic (congestive) heart failure; R53.1 Weakness; R60.0 Localized edema; R06.02 Shortness of breath; I48.0 Paroxysmal atrial fibrillation; J96.22 Acute and chronic respiratory failure with hypercapnia; J96.21 Acute and chronic respiratory failure with hypoxia; Z99.81 Dependence on supplemental oxygen
CPT/HCPCS: 36415; 71045; 80053; 82803; 83735; 83880; 84484; 85025; 96374; 99212; 99283; 99284; J1940

== ENCOUNTER → 2024-08-08 17:35 | Outpatient (BNV) | payer MEDICARE, MEDICAID, SELFPAY | PROVIDERS: Emergency Provider Internal Medicine; PCP Internal Medicine; Visit Provider Radiology Diagnostic Radiology | DX: R06.02 Shortness of breath (principal) | CPT/HCPCS: 71045 ==

== ENCOUNTER 2024-09-20 16:41 | Outpatient (REF) | payer MEDICARE, MEDICAID, SELFPAY ==
[2024-09-20 17:03] LABS: MANUAL DIFF FLAG NO
[2024-09-20 17:13] LABS: Basophils Absolute Auto 0.1 X10*3/uL (0.0-0.2); Basophils Percent Auto 0.7 % (0-2); Eosinophils Absolute Auto 0.3 X10*3/uL (0.0-0.4); Eosinophils Percent Auto 2.8 % (0-4); Hematocrit 35.5 % (37.0-47.0); Hemoglobin 10.2 g/dl (12.0-16.0); Imm Gran Abs Auto 0.03 X10*3/uL (0.00-0.03); Imm Gran Pct Auto 0.3 % (0.0-0.4); Lymphocytes Absolute Auto 1.1 X10*3/uL (1.2-4.9); Lymphocytes Percent Auto 10.4 % (20-40); Mean Corpuscular HGB Conc 28.7 g/dl (31.0-35.0); Mean Corpuscular Hemoglobin 24.4 pg (27.0-33.0); Mean Corpuscular Volume 84.9 fL (80.0-98.0); Mean Platelet Volume 10.1 fL (9.4-12.3); Monocytes Absolute Auto 0.6 X10*3/uL (0.1-1.2); Monocytes Percent Auto 5.9 % (2-11); Neutrophils Absolute Auto 8.2 x10*3/uL (2.0-8.3); Neutrophils Percent Auto 79.9 % (45-73); Platelet Count 250 X10*3/uL (160-400); Red Blood Count 4.18 X10*6/uL (4.20-5.50); White Blood Count 10.2 X10*3/uL (4.8-10.8)
[2024-09-20 17:19] LABS: Estimated Average Glucose 123 mg/dL; Hemoglobin A1c % 5.9 % (<6.0)
[2024-09-20 17:40] LABS: Creatinine Urine 55.64 mg/dL; Total Protein Urine Random 68 mg/dL (<12)
[2024-09-20 17:41] LABS: Creatinine Urine 55.78 mg/dL
[2024-09-20 17:48] LABS: Alanine Aminotransferase 7 U/L (0-31); Albumin Level 3.9 g/dL (3.5-5.0); Alkaline Phosphatase 115 U/L (39-117); Anion Gap 10 (12-20); Aspartate Amino Transferase 14 U/L (5-31); Bilirubin Total 0.4 mg/dL (0.0-1.0); Blood Urea Nitrogen 22 mg/dL (9-16); Calcium 9.3 mg/dL (8.4-10.2); Carbon Dioxide 43 mmol/L (22-29); Chloride 98 mmol/L (96-108); Cholesterol 138 mg/dL (<200); Estimated Glomerular Filt Rate > 60; Glucose Fasting 113 mg/dL (60-99); Glucose Random 113 mg/dL (60-115); HDL Cholesterol 67 mg/dL (>40); Iron 24 mcg/dL (30-160); LDL Cholesterol Calculated 61 mg/dL (<100); Percent Iron Saturation 8 % (15-50); Potassium 4.4 mmol/L (3.3-5.1); Sodium 147 mmol/L (135-145); Total Iron Binding Capacity 314 mcg/dL (228-428); Total Protein 7.8 g/dL (6.5-8.0); Triglycerides 50 mg/dL (<150); Unsaturated Iron Binding 290 ug/dL
[2024-09-20 18:14] LABS: Folate 6.7 ng/mL (> or = 4.0); Vitamin B12 478 pg/mL (200-900)
--- OUTSIDE RECORDS SUMMARY | 2024-09-20 19:48 | XMS_ITS | Clinical Summary ---
Author Organization [facility] Address [address] [place] [address] Care Team Providers Care Chief Dietitian Name Role Phone Evin Fan MD Primary Care Provider [phone] Allergies Active Allergy Reactions Criticality Noted Date Comments Morphine Unknown/Patient and Family Unable to Define Medium 01/20/2021 Medications Medication Sig Dispensed Refills Start Date End Date Status buprenorphine-naloxon e (SUBOXONE) 8-2 mg per SL film Place 3 Film under the tongue daily. 11/18/2020 Active clonazePAM (KlonoPIN) 0.5 MG tablet Take 0.5 mg by mouth 3 times daily (every 8 hours) as needed. 12/22/2020 Active diltiazem (CARDIZEM CD) 180 MG 24 hr capsule Take 1 capsule by mouth 2 (two) times a day. 12/22/2020 Active furosemide (LASIX) 40 MG tablet Take 1 tablet by mouth 2 (two) times a day. 12/22/2020 Active gabapentin (NEURONTIN) 300 MG capsule Take 1 capsule by mouth 3 (three) times a day. 12/22/2020 Active modafinil (PROVIGIL) 100 MG tablet Take 200 mg by mouth daily. 11/04/2020 Active PANTOprazole (PROTONIX) 40 MG EC tablet Take 1 tablet by mouth daily. 12/22/2020 Active temazepam (RESTORIL) 15 MG capsule TAKE 2 CAPSULES (30 MG TOTAL) BY MOUTH NIGHTLY AT BEDTIME NEEDED. 11/05/2020 Active umeclidinium-vilanter ol 62.5-25 MCG/INH inhaler Inhale 1 puff daily. 12/22/2020 Active theophylline (UNIPHYL) 400 MG 24 hr tablet Take 1 tablet by mouth daily. 10/26/2020 Active warfarin (COUMADIN) 5 MG tablet Take 10 mg by mouth daily at the same time. 12/22/2020 Active Social History Tobacco Use Types Packs/Day Years Used Date Smoking Tobacco: Never Assessed Sex and Gender Information Value Date Recorded Sex Assigned at Not on file Gender Identity Not on file Sexual Orientation Not on file Last Filed Vital Signs Vital Sign Reading Time Taken Comments Blood Pressure 133/61 01/20/2021 9:33 PM EDT Pulse 79 01/20/2021 9:33 PM EDT Temperature 36.2 ??C (97.1 ??F) 01/20/2021 9:33 PM ED T Respiratory Rate 18 01/20/2021 9:33 PM EDT Oxygen Saturation 96% 01/20/2021 9:33 PM EDT Inhaled Oxygen Concentration - - Weight 120 kg (265 lb) 01/20/2021 7:09 AM EDT Height 157.5 cm (5' 2 ) 01/20/2021 7:09 AM EDT Body Mass Index 48.47 01/20/2021 7:09 AM EDT Plan of Treatment Health Maintenance Due Date Last Done Comments Hepatitis C Virus Screening 1960 HIV Screening 1974 DTaP/Tdap/Td Vaccines (1 - Tdap) 01/22/1980 Pap Smear (Ages 21-65) 1982 Mammogram 2001 Colonoscopy 2006 Pneumococcal Vaccines 50+ (1 of 1 - PCV) 2011 Zoster (Shingles) Vaccine (1 of 2) 2011 RSV Vaccine 60 years and old er and Patients (1 - Risk 60-74 years 1-dose series) 2021 Influenza Vaccine 02/24/2024 COVID-19 Vaccine ( - 2023-2 5 season) 2024 Hepatitis B Vaccines Aged Out No long er eligible based on patient's age to complete this topic Pneumococcal Vaccine: Pediat ingris (0-5 Years) and At-Risk Patients (6 to 49 Years) Aged Out No longer eligible b ased on patient's age to complete this topic Care Teams Chief Dietitian Relationship Specialty Start Date End Date Evin Fan MD [address] [place] [address] [place] [address] PCP - General Family Medicine 01/20/21
--- OUTSIDE RECORDS SUMMARY | 2024-09-20 19:48 | XMS_ITS | Patient Health Record ---
Author Organization [facility] [place] Address [address] [place] [address] Care Team Providers Care Junior Copywriter Name Role Phone Gal Solorio MD Primary Care Provider Unavail able Ritchie Werner Unavailable [phone] Allergies No Known Allergies Reason For Referral [...] W/U Status Risk Notes Problem Atherosclerosis of [place] arteries of the extremities (438992871985830) Atherosclerosis of [place] artery of both lower extremities, with unspecified presence of clinical manifestation (I70.203) Active confirmed Plan Of Treatment Pending Test Test Name Order Date [id number] NAIL, 1-5 03/04/2023 [id number] SKIN LESIONS, 2 TO 4 03/04/20 23 [id number] DYSTROPHIC NAILS ANY # Insurance Providers Payer Name Payer Address Payer Phone Subscriber Number Group Number Insured Name Patient Relationship to Insured Coverage Start Date Coverage End Date Medicare National Govt Svcs Inc [address] [place] [address] [id number] Sample, Brianne Self - patient is the [...]
--- OUTSIDE RECORDS SUMMARY | 2024-09-20 19:48 | XMS_ITS | Clinical Summary ---
Author Organization [facility] Facility Address [address] [address] Care Team Providers Care Salsa Dance Instructor Name Role Phone Unavailable Primary Care Provider Unavailabl e Social History Tobacco Use Types Packs/Day Years Used Date Smoking Tobacco: Never Assessed Comments Unknown Sex and Gender Information Value Date Recorded Sex Assigned at Not on file Legal Sex Female 1:33 PM EDT Gender Identity Not on file Sexual Orientation Not on file Plan of Treatment Health Maintenance Due Date Last Done Comments Breast Cancer Screening 1961 Colorectal Cancer Screening: Annual FOBT 2010 Colorectal Cancer Screening: Colonoscopy 2010 Colorectal Cancer Screening: Sigmoidoscopy 2010 Influenza Vaccine (#1) 2024 Hepatitis B Vaccine Aged Out No longe r eligible based on patient's age to complete this topic Pneumococcal Vaccine: Pediat rics (0 to 5 Years) and At-Risk Patients (6 to 64 Years) Aged Out No longer eligible b ased on patient's age to complete this topic Insurance [place]
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
== END 2024-09-20 16:42 | disposition home or self-care (01) ==
LOC: HO.LAB 16:41
PROVIDERS: Nurse Practitioner Family; PCP Internal Medicine; Visit Provider Internal Medicine
DX: I50.33 Acute on chronic diastolic (congestive) heart failure (principal); J44.1 Chronic obstructive pulmonary disease with (acute) exacerbation; J96.11 Chronic respiratory failure with hypoxia; D64.9 Anemia, unspecified; Z68.43 Body mass index [BMI] 50.0-59.9, adult; F11.99 Opioid use, unspecified with unspecified opioid-induced disorder; R73.9 Hyperglycemia, unspecified; N18.30 Chronic kidney disease, stage 3 unspecified; E87.5 Hyperkalemia; N18.9 Chronic kidney disease, unspecified
CPT/HCPCS: 36415; 80048; 80053; 80061; 82043; 82570; 82607; 82746; 83036; 83540; 84156; 85025

== ENCOUNTER 2024-09-21 12:07 | Outpatient (AMB) | payer MEDICARE, MEDICAID, SELFPAY ==
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
[2024-09-21 12:13] VITALS: BP 140/72; PULSE 87; O2SAT 92
--- OUTSIDE RECORDS SUMMARY | 2024-09-21 14:37 | XMS_ITS | Encounter Summary ---
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 Organization [place] Address [address] [place] [id number] Care Team Providers Care Boat Rental Clerk Name Role Phone ROMANA CASTILLO Primary [...] Policy Garcia [facility] (MEDICAID) MEDICAID PREMI UM DARRON SMITH May 14, 2009 [id number] SAMPLE,ROCCO MOORE PATIENT [facility] MEDICAID [facility] May 14, 2009 [id number] SAMPLE,ROCCO MOORE PATIENT [facility] MEDICAID [facility] May 14, 2009 [id number] SAMPLE,ROCCO MOORE PATIENT MEDICAID MEDICAID [facility] SERA BRINKD Jul 26, 2018 MEDICAI D [id number] SAMPLE,ROCCO MOORE PATIENT MEDICARE (WNR) MEDICARE (M) PART A November 24, 2015 PART A [id number] SAMPLE,ROCCO MOORE PATIENT MEDICARE (WNR) MEDICARE (M) PART B November 24, 2015 PART B [id number] SAMPLE,ROCCO MOORE PATIENT Selected Encounter This section includes the information on record at [place] for the Encounter. Date/Time Encounter Type Encounter Description Reason Pro vider Source Sep 18, 2024 08:34 AM Outpatient Encounter PAIN CLINIC IHE Encounter [...] Appointment Type Appointme nt Facility Name Sep 28, 2024 08:00 AM AMBULATORY - MEDICINE [facility] Sep 28, 2024 11:30 AM AMBULATORY - PSYCHIATRY [facility] Nov 09, 2024 11:30 AM AMBULATORY - MEDICINE [facility] Active, Pending, and Scheduled Orders This section [...] Date/Time Test Type Test Details Facility Name Sep 07, 2024 12:25 PM Consult Order ACTIVE MAN AGEMENT OF PAIN (OUTPT) Cons Nut [facility] Choice [facility] Social History: Smoking Status (Most [...] Rosana christian Mar 06, 2024 09:00 AM [place]-TOBACCO FORMER USER [facility] [place] [facility] Tobacco Use History This section includes a history of the smoking, or tobacco-related health factors, that were collected on or before the date of the Encounter. The data comes from the [place] facility where the Encounter took place. Date/Time Smoking Status/Tobac co Use Comment Facility Mar 06, 2024 09:00 AM [place]-TOBACCO QUIT 15 YRS OR MORE [place] [facility] [place] [facility] Mar 31, 2023 11:00 AM VA-TOBACCO FORMER USER [place] [facility] [place] [facility] Mar 31, 2023 11:00 AM VA-TOBACCO QUIT 1 TO < 5 YRS [place] [facility] [place] [facility] Mar 25, 2022 10:30 AM VA-TOBACCO NEVER USED [place] [facility] [place] [facility] Mar 19, 2021 02:00 PM VA-TOBACCO FORMER USER [place] [facility] [place] [facility] Mar 19, 2021 02:00 PM VA-TOBACCO QUIT < 1 YEAR [place] [facility] [place] [facility] Sep 20, 2018 11:24 AM VA-TOBACCO USE DECLINED TO ANSWER [place] [facility] [place] [facility] Oct 21, 2017 08:13 AM QUIT TOBACCO USE IN PAST YEAR [place] [facility] [place] [facility] Dec 30, 2016 08:28 AM QUIT TOBACCO USE 1-7 YEARS AGO [facility] [place] [facility] Jun 04, 2016 08:43 AM QUIT TOBACCO USE 1-7 YEARS AGO [place] [facility] [place] [facility] May 17, 2015 08:45 AM QUIT TOBACCO USE 1-7 YEARS AGO quit 2 years ago. [place] [facility] [place] [facility] Jun 07, 2014 09:25 AM QUIT TOBACCO USE 1-7 YEARS AGO [place] [facility] [place] [facility] November 30, 2013 08:44 AM QUIT TOBACCO USE IN PAST YEAR [place] [facility] [place] [facility] May 22, 2013 10:10 AM QUIT TOBACCO USE IN PAST YEAR [place] [facility] [place] [facility] December 01, 2012 01:54 PM QUIT TOBACCO USE IN PAST YEAR [place] [facility] [place] [facility] Jun 07, 2012 08:16 AM V1-PT DECLINES TOBACCO CESSATION MEDS [place] [facility] [place] [facility] Jun 07, 2012 08:16 AM V1-PT THINKING ABOUT QUIT TOBACCO USE [facility] [place] [facility] Jan 05, 2012 09:00 AM CURRENT SMOKER intermittenly [facility] [place] [facility] Jan 05, 2012 09:00 AM V1-PT DECLINES REF TO TOBACCO CESS PRGM [place] [facility] [place] [facility] Jan 05, 2012 09:00 AM V1-PT DECLINES TOBACCO CESSATION MEDS [facility] [place] [facility] Jan 05, 2012 09:00 AM V1-PT THINKING ABOUT QUIT TOBACCO USE [facility] [place] [facility] Feb 17, 2011 09:52 AM V1-PT DECLINES TOBACCO CESSATION MEDS [place] [facility] [place] [facility] Feb 17, 2011 09:52 AM V1-PT THINKING ABOUT QUIT TOBACCO USE [facility] [place] [facility] Aug 13, 2010 11:31 AM QUIT TOBACCO [facility] [place] [facility] Feb 19, 2010 01:26 PM QUIT TOBACCO USE IN PAST YEAR [place] [facility] [place] [facility] Sep 13, 2009 11:04 AM QUIT TOBACCO USE IN PAST YEAR [facility] [place] [facility] Feb 05, 2009 08:29 AM V1-PT DECLINES REF TO TOBACCO CESS PRGM [facility] [place] [facility] Feb 05, 2009 08:29 AM V1-PT DECLINES TOBACCO CESSATION MEDS [facility] [place] [facility] Feb 05, 2009 08:29 AM V1-PT THINKING ABOUT QUIT TOBACCO USE [facility] [place] [facility] Aug 22, 2008 09:04 AM QUIT TOBACCO USE IN PAST YEAR [place] [facility] [place] [facility] Mar 12, 2008 10:40 AM V1-PT DECLINES REF TO TOBACCO CESS PRGM [place] [facility] [place] [facility] Mar 12, 2008 10:40 AM V1-PT DECLINES TOBACCO CESSATION MEDS [place] [facility] [place] [facility] Mar 12, 2008 10:40 AM V1-PT NOT INTERESTED IN QUIT TOBACCO USE [facility] [place] [facility] Mar 08, 2008 09:37 AM CURRENT SMOKER smokes one pack a day for about 10 years ago. [facility] [place] [facility] Encounter Notes: All associated encounter notes This section contains the clinical notes associated to the Encounter. Date/Time Encounter Note(s) Provider Source Sep 18, 2024 08:34 AM TELEPHONE ENCOUNTE R NOTE: LOCAL TITLE: TELEPHONE NOTE/SPECIALTY CLINIC STANDARD TITLE: TELEPHONE ENCOUNTER NOTE DATE OF NOTE: SEP 18, 2024@08:34 ENTRY DATE: SEP 18, 2024@08:34:18 AUTHOR: BEULAH LOPEZ EXP COSIGNER: URGENCY: STATUS: COMPLETED TELEPHONE NOTE/SPECIALTY CLINIC Has ADDENDA vet called asking for refill of oxycodone and bupenorphine. pt is hoping to be able to pickle solution maker today in [place]. please advise/call [phone] /isabella LOPEZ ADVANCED DOUGHNUT BATTER MIXER Signed: 09/18/2024 08:35 Receipt Acknowledged By: 09/19/2024 12:07 /divya/ JESSIKA CORONEL MD PHYSICIAN for WENDY MADSEN 09/18/2024 11:09 /divya/ ERIC DOUGLAS CLINICAL PHARMACIST PRACTITIONER, PAIN 09/19/2024 12:07 /divya/ JESSIKA CORONEL MD PHYSICIAN 09/18/2024 11:28 /divya/ URBANO FOSTER, PHARM.D CLINICAL PHARMACIST PRACTITIONER 09/18/2024 ADDENDUM STATUS: COMPLETED Buprenorphine was released today at pharmacy window. Dr. Madsen previously entered oxycodone prescription which is on hold for pick-up when due on 09/22. /divya/ ERIC DOUGLAS CLINICAL PHARMACIST PRACTITIONER, PAIN Signed: 09/18/2024 11:10 09/18/2024 ADDENDUM STATUS: COMPLETED Ticket Printer And Tagger notified vet could pickle solution maker bupenorphine and will have to wait until 09/22/2024 to pickle solution maker oxycodone /isabella LOPEZ ADVANCED DOUGHNUT BATTER MIXER Signed: 09/18/2024 13:08 BEULAH LOPEZ [facility]
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
--- OUTSIDE RECORDS SUMMARY | 2024-09-21 14:38 | XMS_ITS | Continuity of Care Document ---
Author Organization [facility] Address [address] [place] [address]- Care Team Providers Care Nuclear Technician Name Role Phone Yenny ROSE MD, Chirag Olivo Primary Care Physici an Encounter 05/25/24 - 08/24/24 [facility] [address] [place] [address] Disposition: CLIENT NO LONGER REQUIRES SKILLED CARE Encounter Type: Disch V[facility] Allergies, Adverse Reactions, Alerts Substance Criticality Severity Reaction Reaction Severity Status morphine High criticality Severe anaphylaxis A ctive propofol anaphylaxis Active Tomatoes mouth itch Active gabapentin tardive dyskenesia Active Immunizations Given and Recorded Vaccine Date Status Refusal Reason SARS-CoV-2(COVID-19)mRNA-LNP vac([id number]) 09/08/23 Recorded influenza virus vaccine, inactivated 05/05/22 [...] 4:28:00 PM EDT, Route to Pharmacy Electronically, [facility], Partial fill upon patient [...] 0 Refills, Maintenance, 05/14/22 4:09:00PM EDT, Tablet, [facility], Partial fill upon patient [...] Refills, Maintenance, 03/21/24 4:26:00 PM EDT, Capsule, [facility], Partial fill upon patient [...] Soft Stop, 09/01/23 3:31:00 PM EST, [facility]/pharmacy #[id number], Partial fill upon patient request [...] 04/17/22 6:01:00 PM EDT, CR Tablet, [facility]/pharmacy #[id number], Partial fill upon patient request [...] Team Personnel Name: Thomas Lomax RN Position: [facility] ED RN W/OE and Tasks Member Role: Primary Care Nurse Name: Mandy Hightower RN Position: [facility] RN Member Role: Primary Care Nurse Name: Akosua Moses RN Position: [facility] RN Member Role: Primary Care Nurse Name: Michelle Zambrano RN Position: [facility] RN Member Role: Primary Care Nurse Name: Stacie Ortiz RN Position: [facility] SN RN Member Role: Primary Care Nurse Name: Nicole Alvarado RN Position: [facility] AMB Nurse Member Role: Primary Care Nurse Name: Saranya Muir RN Position: [facility] RN Member Role: Primary Care Nurse Name: David Gil RN Position: [facility] RN Member Role: Primary Care Nurse Name: Yenny ROSE MD, Cihrag Olivo Position: Reference Physician Member Role: PCP Address: [address] [place] [address] Telecom: Name: Pau Olmedo RN Position: [facility] RN Member Role: Primary Care Nurse Name: Rodrigo Noel RN Position: [facility] RN Member Role: Primary Care Nurse Name: Ximena Constantino RN Position: [facility] SN RN Member Role: Primary Care Nurse Name: Kylie Wilde RN Position: [facility] RN Member Role: Primary Care Nurse Name: Domenica Ramirez RN Position: [facility] RN Member Role: Primary Care Nurse Name: Talita Roberts RN Position: [facility] RN Member Role: Primary Care Nurse Name: Klarissa Ko RN Position: [facility] RN Member Role: Primary Care Nurse Name: Ivette Osorio RN Position: [facility] RN Member Role: Primary Care Nurse Name: Alma Lott RN Position: [facility] SN RN Member Role: Primary Care Nurse Name: Elise Quick NP Position: [facility] Associate Professional Member Role: Lifetime Consulting Provider Address: [address] [facility] [address] [facility] [place] [place] [address]- Telecom: Name: Eulalio Prado MD Position: [facility] Renal MD Member Role: Lifetime Consulting Physician Address: [address] [facility] [address] [facility] [place], [place] [address] Telecom: Name: Caroline Shirley RN Position: [facility] RN Member Role: Primary Care Nurse Name: Cori Landeros RN Position: [facility] RN Member Role: Primary Care Nurse Name: Chelle Ricardo RN Position: [facility] RN Member Role: Primary Care Nurse Name: Wolfgang Siddiqui RN Position: [facility] RN Member Role: Primary Care Nurse Name: Sigrid London RN Position: [facility] RN Member Role: Primary Care Nurse Name: Kelsi Kim RN Position: [facility] RN Member Role: Primary Care Nurse Name: Mireya Catherine RN Position: [facility] RN Member Role: Primary Care Nurse Name: Lizet Hilliard RN Position: [facility] RN Member Role: Primary Care Nurse Name: Magalie Grande RN Position: [facility] RN Member Role: Primary Care Nurse Name: Josefina Leonard RN Position: [facility] SN RN Member Role: Primary Care Nurse Name: Prem Barrera MD Position: [facility] Outreach Member Role: Lifetime Consulting Physician Address: [address] [facility] [place], [place] [address] Telecom: Name: Alma Reyes RN Position: [facility] RN Member Role: Primary Care Nurse Name: Nayely Mercado RN Position: [facility] RN Member Role: Primary Care Nurse Name: Lata Hernandez RN Position: [facility] SN RN Member Role: Primary Care Nurse Name: Atul Molina MD Position: [facility] Renal MD Member Role: Lifetime Consulting Physician Address: [address] [facility] [place], [place] [address] Telecom: Name: Gema Jean Baptiste RN Position: [facility] RN Member Role: Primary Care Nurse Name: Esther Miller RN Position: [facility] RN Member Role: Primary Care Nurse Name: Siena Coleman RN Position: [facility] RN Member Role: Primary Care Nurse Name: Julia Alex RN Position: [facility] RN Member Role: Primary Care Nurse Name: Brandi Martinez RN Position: [facility] RN Member Role: Primary Care Nurse Name: Joann Moore RN Position: [facility] RN Member Role: Primary Care Nurse Name: Ramya Cook RN Position: [facility] 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
--- OUTSIDE RECORDS SUMMARY | 2024-09-21 14:39 | XMS_ITS | Patient Health Record ---
Author Organization [facility] [place] Address [address] [place] [address] Care Team Providers Care Supervisor Photocomposition Name Role Phone Gal Solorio MD Primary Care Provider Unavail able Ritchie Werner Unavailable [phone] Allergies No Known Allergies Reason For Referral [...] W/U Status Risk Notes Problem Atherosclerosis of [place] arteries of the extremities ([id number]) Atherosclerosis of [place] artery of both lower extremities, with unspecified presence of clinical manifestation (I70.203) Active confirmed Plan Of Treatment Pending Test Test Name Order Date [id number] NAIL, 1-5 03/04/2023 [id number] SKIN LESIONS, 2 TO 4 03/04/20 23 [id number] DYSTROPHIC NAILS ANY # Insurance Providers Payer Name Payer Address Payer Phone Subscriber Number Group Number Insured Name Patient Relationship to Insured Coverage Start Date Coverage End Date Medicare [employer] [address] [place] [address] [id number] Sample, Brianne Self - patient is the [...]
--- OUTSIDE RECORDS SUMMARY | 2024-09-21 14:39 | XMS_ITS | Encounter Summary ---
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 Organization [facility] [place] Address [address] [place] [address] Care Team Providers Care Handstitching Machine Collar Feller Name Role Phone ROMANA CASTILLO Primary Care [...] Policy Garcia [facility] (MEDICAID) MEDICAID PREMI UM DARRON SMITH May 14, 2009 [id number] SAMPLE,ROCCO MOORE PATIENT [facility] MEDICAID [facility] May 14, 2009 [id number] SAMPLE,ROCCO MOORE PATIENT [facility]ICAID [facility] May 14, 2009 [id number] SAMPLE,ROCCO MOORE PATIENT MEDICAID MEDICAID [facility] SER[facility] BRINKD Jul 26, 2018 MEDICAI D [id number] SAMPLE,ROCCO MOORE PATIENT MEDICARE (WNR) MEDICARE (M) PART A November 24, 2015 PART A [id number] SAMPLE,ROCCO MOORE PATIENT MEDICARE (WNR) MEDICARE (M) PART B November 24, 2015 PART B [id number] SAMPLE,ROCCO MOORE PATIENT Selected Encounter This section includes the information on record at [place] for the Encounter. Date/Time Encounter Type Encounter Description Reason Pro vider Source Sep 06, 2024 09:27 AM Outpatient Encounter PAIN CLINIC [facility] Encounter Template Text not used by [place] Plan of Treatment: Future Appointments (+ 6 months) and Future Tests (+/- 45 days) The Plan of Treatment section includes future care activities for the patient from [facility] [place] [facility] This section includes future appointments and future orders which are active, pending or scheduled. Future Appointments This section includes appointments that were scheduled to occur 6 months from the date of the Encounter, up to a maximum of 20 appointments. The data comes from all [facility]. Appointment Date/Time Appointment Type Appointme nt Facility Name Sep 07, 2024 11:30 AM AMBULATORY - MEDICINE [facility] Sep 28, 2024 08:00 AM AMBULATORY MEDICINE [facility] Sep 28, 2024 11:30 AM AMBULATORY - PSYCHIATRY [facility] Nov 09, 2024 11:30 AM AMBULATORY MEDICINE [facility] Active, Pending, and Scheduled Orders This section includes a listing of several types of active, pending, and scheduled orders, including clinic medications orders, diagnostic test orders, procedure orders and consult orders; where the start date of the order is 45 days before the date of the Encounter or 45 days after the date of theEncounter. The data comes from all [facility]. Test Date/Time Test Type Test Details Facility Name Sep 07, 2024 12:25 PM Consult Order ACTIVE MAN AGEMENT OF PAIN (OUTPT) Cons Handbag Finisher's Choice [facility] Social History: Smoking Status (Most [...] 15 YRS OR MORE [facility] [place] [facility] Tobacco Use History This section includes a history of the smoking, or tobacco-related health factors, that were collected on or before the date of the Encounter. The data comes from the [place] facility where the Encounter took place. Date/Time Smoking Status/Tobac co Use Comment Facility Mar 06, 2024 09:00 AM VA-TOBACCO QUIT 15 YRS OR MORE [place] [facility] [place] [facility] Mar 31, 2023 11:00 AM VA-TOBACCO FORMER USER [place] [facility] [place] [facility] Mar 31, 2023 11:00 AM VA-TOBACCO QUIT 1 TO < 5 YRS [place] [facility] [place] [facility] Mar 25, 2022 10:30 AM VA-TOBACCO NEVER USED [place] [facility] [place] [facility] Mar 19, 2021 02:00 PM VA-TOBACCO FORMER USER [place] [facility] [place] [facility] Mar 19, 2021 02:00 PM VA-TOBACCO QUIT < 1 YEAR [place] [facility] [place] [facility] Sep 20, 2018 11:24 AM VA-TOBACCO USE DECLINED TO ANSWER [place] [facility] [place] [facility] Oct 21, 2017 08:13 AM QUIT TOBACCO USE IN PAST YEAR [place] [facility] [place] [facility] Dec 30, 2016 08:28 AM QUIT TOBACCO USE 1-7 YEARS AGO [place] [facility] [place] [facility] Jun 04, 2016 08:43 AM QUIT TOBACCO USE 1-7 YEARS AGO [place] [facility] [place] [facility] May 17, 2015 08:45 AM QUIT TOBACCO USE 1-7 YEARS AGO quit 2 years ago. [place] [facility] [place] [facility] Jun 07, 2014 09:25 AM QUIT TOBACCO USE 1-7 YEARS AGO [place] [facility] [place] [facility] November 30, 2013 08:44 AM QUIT TOBACCO USE IN PAST YEAR [place] [facility] [place] [facility] May 22, 2013 10:10 AM QUIT TOBACCO USE IN PAST YEAR [place] [facility] [place] [facility] December 01, 2012 01:54 PM QUIT TOBACCO USE IN PAST YEAR [place] [facility] [place] [facility] Jun 07, 2012 08:16 AM V1-PT DECLINES TOBACCO CESSATION MEDS [facility] [place] [facility] Jun 07, 2012 08:16 AM V1-PT THINKING ABOUT QUIT TOBACCO USE [facility] [place] [facility] Jan 05, 2012 09:00 AM CURRENT SMOKER intermittenly [facility] [place] [facility] Jan 05, 2012 09:00 AM V1-PT DECLINES REF TO TOBACCO CESS PRGM [facility] [place] [facility] Jan 05, 2012 09:00 AM V1-PT DECLINES TOBACCO CESSATION MEDS [facility] [place] [facility] Jan 05, 2012 09:00 AM V1-PT THINKING ABOUT QUIT TOBACCO USE [facility] [place] [facility] Feb 17, 2011 09:52 AM V1-PT DECLINES TOBACCO CESSATION MEDS [facility] [place] [facility] Feb 17, 2011 09:52 AM V1-PT THINKING ABOUT QUIT TOBACCO USE [facility] [place] [facility] Aug 13, 2010 11:31 AM QUIT TOBACCO USE IN PAST YEAR [facility] [place] [facility] Feb 19, 2010 01:26 PM QUIT TOBACCO USE IN PAST YEAR [place] [facility] [place] [facility] Sep 13, 2009 11:04 AM QUIT TOBACCO USE IN PAST YEAR [facility] [place] [facility] Feb 05, 2009 08:29 AM V1-PT DECLINES REF TO TOBACCO CESS PRGM [facility] [place] [facility] Feb 05, 2009 08:29 AM V1-PT DECLINES TOBACCO CESSATION MEDS [facility] [place] [facility] Feb 05, 2009 08:29 AM V1-PT THINKING ABOUT QUIT TOBACCO USE [facility] [place] [facility] Aug 22, 2008 09:04 AM QUIT TOBACCO USE IN PAST YEAR [facility] [place] [facility] Mar 12, 2008 10:40 AM V1-PT DECLINES REF TO TOBACCO CESS PRGM [facility] [place] [facility] Mar 12, 2008 10:40 AM V1-PT DECLINES TOBACCO CESSATION MEDS [facility] [place] [facility] Mar 12, 2008 10:40 AM V1-PT NOT INTERESTED IN QUIT TOBACCO USE [facility] [place] [facility] Mar 08, 2008 09:37 AM CURRENT SMOKER smokes one pack a day for about 10 years ago. [facility] Encounter Notes: All associated encounter notes This section contains the clinical notes associated to the Encounter. Date/Time Encounter Note(s) Provider Source Sep 06, 2024 09:27 AM TELEPHONE ENCOUNTE R NOTE: LOCAL TITLE: TELEPHONE NOTE/SPECIALTY CLINIC STANDARD TITLE: TELEPHONE ENCOUNTER NOTE DATE OF NOTE: SEP 06, 2024@09:27 ENTRY DATE: SEP 06, 2024@09:27:37 AUTHOR: BEULAH LOPEZ EXP COSIGNER: URGENCY: STATUS: COMPLETED Called and spoke with pt to remind them that they have a FTF appt with the Pain clinic on 09/07/2024 at 1130. 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
--- OUTSIDE RECORDS SUMMARY | 2024-09-21 14:39 | XMS_ITS | Clinical Summary ---
Author Organization [facility] Facility Address [address] [address] Care Team Providers Care Hi Lo Driver Name Role Phone Unavailable Primary Care Provider [...]
--- OUTSIDE RECORDS SUMMARY | 2024-09-21 14:39 | XMS_ITS | Data Portability ---
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 Results Procedure: Wound Vacuum Dressing Change Description: [...] dressing regularly with wound care nurse from [facility]. -Check wound in 6-8 weeks or sooner [...] care clinic for additional input if needed. [email or web address] Not available 04/17/2024 21:48:46 06/01/2024 06/01/2024 History [...] weeks or sooner if any flare-ups occur. [email or web address] Not available 06/07/2024 22:37:13 Plan of Treatment [...] rt femur 2v global 2023 024 [email or web address] [facility], [address], [place], [address], 4 07:22:36 XR, femur, 2 or more view - 315 rt femur 2v new pt 2023 024 [email or web address] [facility], [address], [address], [place], [address], 4 16:27:27 Medication Orders None recorded. Patient TargetsNo targets recorded. Patient InstructionsNo instructions recorded. Reason for Referral Right distal lateral thigh w ound, wound VAC change every 48-72 hours, with black granular foam sponge, and -125 mmHg suction. Wound tunnels distally about 4 cm, and laterally i.e. deep she is about 3-1/2 cm. Referring Physician: Juanjose Dangelo, Orthopedic Surgery, [id number] Encounter Date: 04/07/2024 Results Created Date Observation Date Name Description Value Unit Range Abnormal Flag Note LastModifiedBy Organization Detail LastModifiedTime 04/07/2004/07/2024 XR, femur , 2 or more view [email or web address]:/ [email or web address] ?Encry pted=s hAaTro YD8dLq bEUv6g %2BXZw aYqtaq 0bqfl% 2Fg9IQ a4ajBk vP9nXo QUaueC m3YtLR FvZlgJ JJ8mAn HZtai3 1x6060 AC0Kqa n6MU6S iKiQtr MwF INTERFACE [facility] [address], [place], [address], 04/07/2024 11:10:25 04/07/20 24 04/07/2024 XR, femur , 2 or more view [email or web address] ?Encry pted=s hAaTro YD8dLq bEUv6g %2BXZw aYqtaq 0bqfl% 2Fg9IQ a4ajBk vP9nXo QUaueC m3YtLR FvZlgJ JJ8mAn HZtai3 0t3214 AC0Kqa n6MU6S iKiQtr MwF INTERFACE [facility] [address], [place], [address], 04/07/2024 11:10:27 Result Notes None recorded. 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 0216811124572 03 Active 2023 Katina Mills MD [address], [place], [address] , [facility] 4 11:52:00 Open wound of thigh 289011397 Active 2023 Katina Mills MD [address], [place], [address] , [facility] 4 16:45:16 Infection AND/OR inflammato ry reaction due to internal prosthetic device, implant AND/OR graft 54397095 Active 2023 Katina Mills MD [address], [place], [address] , [facility] 4 16:45:24 Thigh pain 44802475 Active 2023 JOHN rangel [facility] 4 13:29:20 Thigh pain 96503571 Active 2023 JOHN rangel [facility] 4 13:29:34 Pain of right thigh 7288596422690 07 Active 2023 JOHN rangel [place] [facility] [place] [facility] 4 13:30:16 Problem Notes None recorded. Procedures Surgical History None recorded. Imaging Results Imaging Date Name Status LastModified by Organiz ation Details LastModified Time 04/07/2024 XR, femur, 2 or more view completed INTERFACE [facility] [address], [place], [address], 04/07/2024 11:10:25 04/07/2024 XR, femur, 2 or more view completed INTERFACE [facility] [address], [place], [address], 04/07/2024 11:10:27 Procedure Notes None recorded. Medical Equipment None Reported. Allergies Allergen ID Allergen Name Allergen Category Reaction Reaction Severity Criticality Documentation Date Start Date Code Code System Note Provider Name and Address Organization Details Recorded Time 84995 morphine sulfate medicatio n Not available Not available Not available 09/27/20232020 74372 RxNorm Not Available [facility] 4 12:45:16 Medications Name Sig [...] Updated DateTime 11/24/2023 156.21 cm 50.2 kg/m2 071585.94 g VIKTOR ALVARESOUR [facility] 11/24/2023 09:55:18 Date Recorded Body height Body mass index (BMI) Body weight Provider Name and Address Organization Details Last Updated DateTime 02/22/2024 156.21 cm 50.2 kg/m2 325107.94 g VIKTOR ALVARESOUR [facility] 02/22/2024 14:48:54 Date Recorded Body height Body mass index (BMI) Body weight Provider Name and Address Organization Details Last Updated DateTime 04/07/2024 156.21 cm 50.2 kg/m2 286902.94 g VIKTOR MARCIALYMOUR [facility] 04/07/2024 10:56:59 Date Recorded Body height Body mass index (BMI) Body weight Provider Name and Address Organization Details Last Updated DateTime 06/01/2024 156.21 cm 50.2 kg/m2 996216.94 g VIKTOR MARCIALYMOUR [facility] 06/01/2024 14:26:08 Social [...] Disease N Heart Trouble Y Heart Attack ([place]) N Gastrointestinal Disease Y Cholesterol N Diabetes [...] SNOMED-CT Code Diagnosis ICD10 Code Diagnosis Note [id number] MD Cristina Morton [address] [place] [address] [address] [place] [address] 11/24/2023 09:44:05 11/24/2023 16:25:12 Fracture of femur 55222329 S72.91XD [id number] MD Cristina Morton [address] [place] [address] [address] [place] [address] 02/22/2024 14:35:57 03/20/2024 05:41:20 Chronic osteomyelitis of femur 686228971 M86.659 Infection AND/OR inflammatory reaction due to internal prosthetic device, implant AND/OR graft 34243460 T82.7XXS Open wound of thigh 1256 77539 S71.101A Chronic os teomyelitis of femur with draining sinus 5774586197 82126 M86.835 [id number] MD Cristina mAbrose [address] [place] [address] [address] [place] [address] 04/07/2024 10:50:34 04/20/2024 07:22:36 Closed fracture of shaft of femur 14861486 S72.301D Open wound of thigh 1256 09229 S71.101D [id number] MD Cristina Ambrose [address] [place] [address] [address] [place] [address] 06/01/2024 14:12:22 06/20/2024 09:07:48 Chronic osteomyelitis of right femur 2012677991 376629 M86.651 Chronic os teomyelitis of femur with draining sinus 4263789455 38469 M86.451 Health Concerns Section Related Observation LastModified by Organization Detai ls LastModified Time None Recorded Concern Status LastModified by Organization Details LastModified Time None Recorded Advance Directives Directive None Recorded Payers Encounter Date Sequence Insurance Name Policy Number Policy Garcia Covered Member ID Garcia Member ID Guarantor Name 11/24/2023 1 [place] [facility] Sample [id number] [place] 11/24/2023 2 [place] [facility] Sample [id number] [place] 02/22/2024 1 [place] [facility] Sample [id number] [place] 02/22/2024 2 [place] [facility] Sample [id number] [place] 04/07/2024 1 [place] [facility] Sample [id number] [place] 04/07/2024 2 [place] [facility] Sample [id number] [place] 06/01/2024 1 [place] [facility] Sample [id number] [place] 06/01/2024 2 [place] [facility] Sample [id number] [place] Sample OBGyn Episode No OBEpisode recorded.
--- OUTSIDE RECORDS SUMMARY | 2024-09-21 14:39 | XMS_ITS | Clinical Summary ---
Author Organization [facility] Address [address] [place] [address] Care Team Providers Care Refuge Manager Name Role Phone Evin Fan MD Primary Care Provider [phone] Allergies Active Allergy Reactions Criticality Noted Date [...] age to complete this topic Care Teams Refuge Manager Relationship Specialty Start Date End Date Evin Fan MD [address] [place] [address] [place] [address] PCP - General Family Medicine 01/20/21
--- OUTSIDE RECORDS SUMMARY | 2024-09-21 14:39 | XMS_ITS | Continuity of Care Document ---
Author Name [facility] Organization [facility] Care Team Providers Care Asset Management Coordinator Name Role Phone [facility] Unavailable Unavailable Problems Combined list of problems from Department of Defense and Veterans Affairs facilities. It does not include entries that were removed or entered in error. Problem Status Onset Date Problem Type Date of Resolution Comments Source AF- Atrial Fibrillation ([facility] 55404768) Active Condition Jan 26, 2024 Entered By: [...] [facility] Hypertension (SNOMED CT 57854716) Active Condition [facility] Hysterectomy Active Condition Jan 03, 2009 Entered By: WENDY MADSEN Comment: -- 1994 in [place] for endometriosis, comp ov cyst [facility] [...] Long-term current use of anticoagulant Active Condition [facility] Microalbuminuria Active Condition Mar 06, 2024 Entered By: IRENE CASTILLO Comment: no diabetes/longsta nding HTN- 2023 [facility] Microscopic hematuria Active Condition Apr 16, 2014 Entered By: WENDY MADSEN Comment: noted 03/08 [facility] Myocardial infarction Active Condition May 05, 2022 Entered By: WENDY MADSEN Comment: -- acute NSTEMI 05/03/22 [facility] Obesity Active Condition [facility] Opioid dependence (SNOMED CT 86427319) Active Condition Jun 27, 2018 Entered By: TAMRA STRAUSS Comment: Suboxone in community [facility] [place] [facility] Osteoarthritis of knee Active Condition Oct 25, 2014 Entered By: WENDY MADSEN Comment: -- steroid injection to left knee 10/07 Dr. Singleton [facility] Osteomyelitis of right [...] By: IRENE CASTILLO Comment: on U/S at [facility]. repeat Aug 2024 / vet wants to plan this thru community PCP [facility] Sleep apnea (SNOMED CT 82382060) Active Condition Aug 18, 2016 Entered By: WENDY MADSEN Comment: -- treated with CPAP, needs clonazepam to tolerate it [facility] Tobacco dependence, continuous (SNOMED CT 301585409) Active Condition Aug 11, 2017 Entered By: LONG VARELA Comment: persists to smoke - 08/08/2017 admitted at [facility] with COPD exacerbation [facility] Varicose Veins (ICD-9-CM 454.9) Active Condition [facility] Acute bronchitis Inactive Condition 08/06/2008 Se p 24, 2007 Entered By: WENDY MADSEN Comment: exacerbation 04/02 [facility] [place] [facility] Acute exacerbation of chronic obstructive airways disease Inactive Condition 02/24/2018 Aug 11, 2017 Entered By: LONG VARELA Comment: 08/05/17 through 08/08/17 admitted at [facility] for exacerbation. Still smoking [facility] Ankle: arthralgia * (ICD-9-CM 719.47) Inactive Condition 08/18/2016 [facility] [place] [facility] Asthma (SNOMED CT 685148861) Inactive Condition 02/24/2018 Apr 19, 2008 Entered By: WENDY MADSEN Comment: intermittent with severe exacerbations [facility] [place] [facility] Candidiasis, Oral Inactive Condition 02/24/2018 [facility] [place] [facility] Contact dermatitis due to plants Inactive Condition 08/18/2016 [facility] Counseling on Substance Use and Abuse (ICD-9-CM V65.42) Inactive Condition 08/06/2008 [facility] [place] [facility] Derangement of meniscus Inactive Condition 08/18/2016 Oct 25, 2014 Entered By: WENDY MADSEN Comment: -- left knee torn medial meniscus 09/09 [facility] [place] [facility] Dyspnea Inactive Condition 02/24/2018 Aug 11, 2 018 Entered By: LONG VARELA Comment: admit 08/05/17 -08/08/17 at [facility]: COPD exacerbation , CHo also showed than mild pulmonary HTN , so question of a degree of cor pulmonale though had NL LVF , mild R cadiac chamber dilated [facility] Edema * (ICD-9-CM 782.3) Inactive Condition 02/24/2018 [facility] [place] [facility] Encounter for Vocational Therapy (ICD-9-CM V57.22) Inactive Condition 01/03/2009 [facility] Hyperglycemia Inactive Condition 06/27/2018 Apr 262016 Entered By: LONG VARELA Comment: 6.8% [facility] February 2017 .Patient prefesr to recheck her l [facility] [place] [facility] Hypovolemia Inactive Condition 02/24/2018 Aug 11, 2017 Entered By: LONG VARELA Comment: 08/05/2017 -admitted to [facility] as self increased her lasix to 320 mg /day - when she had COPD exacerbation- [facility] Hypoxemia Inactive Condition 03/22/2018 May 20, 2 017 Entered By: LONG VARELA Comment: 05/20/2017 walking 73% and rest O2 85% at [facility] . Using [facility] Obesity (SNOMED CT 704991073) Inactive Condition 06/27/2018 [facility] [place] [...] and observation for oth reasons Active Diagnosis [facility] Diagnosis: ICD-10-CM E66.9 Obesity, unspecified Active Diagnosis [facility] Medications Combined list of outpatient medications from Department of Defense and Veterans Affairs facilities.Medications provided include 1) outpatient medications from the last 15 months, and 2) patient-reported medications. Medication Details Route Status Patient Instructions Prescription Expires Prescription Number Last Dispense Date Ordering Provider Order Date Order Qty Source ACETAMINOPH EN 500MG TAB TAKE TWO TABLETS BY MOUTH THREE TIMES DAILY NEEDED FOR PAIN ORAL ACTIVE 09/08/2025 [id number] SORAIDA MADSENM S 2024 200 [facility] ALBUTEROL 100MCG/IPRA TROPIUM BR 20MCG/SPRAY INHALER,ORA L,4GM INHALE 1 PUFF BY MOUTH FOUR TIMES A DAY AFTER MEALS AND AT BEDTIME RESPIR ATORY (INHAL ATION) ACTIVE LAUREENAL ICE [facility] APIXABAN 5MG TAB TAKE ONE TABLET BY MOUTH EVERY 12 HOURS FOR PREVENTI ON OF BLOOD CLOTS ORAL DISCONT INUED BY PROVIDE R 04/05/2024 [id number] FAYE FLOOD 2022 180 [facility] ATORVASTATI N CA 80MG TAB TAKE ONE TABLET BY MOUTH ONCE DAILY FOR CHOLESTE ROL ORAL DISCONT INUED (EDIT) 09/17/2023 [id number] 4 SORAIDA MADSEN S 2023 30 [facility] ATORVASTATI N CA 80MG TAB TAKE ONE TABLET BY MOUTH ONCE DAILY FOR CHOLESTE ROL ORAL 08/26/2024 [id number] FAYE FLOOD 2023 90 [facility] BUPRENORPHI NE HCL 2MG TAB,SUBLING UAL DISSOLVE TWO TABLETS UNDER THE TONGUE FOUR TIMES A DAY SUBLIN GUAL ACTIVE 11/25/2024 [id number] 5 SORAIDA MADSEN S 2023 240 [facility] BUPRENORPHI NE HCL 2MG TAB,SUBLING UAL DISSOLVE TWO TABLETS UNDER THE TONGUE FOUR TIMES A DAY SUBLIN GUAL DISCONT INUED 05/19/2024 [id number] 4 SORAIDA MADSEN LLIAM S 2023 240 [facility] BUPRENORPHI NE HCL 2MG TAB,SUBLING UAL DISSOLVE ONE TABLET UNDER THE TONGUE FOUR TIMES A DAY SUBLIN GUAL DISCONT INUED (EDIT) 12/25/2023 [id number] SORAIDA MADSEN LLIAM S 2022 120 [facility] CHOLECALCIF LEVI 10MCG (400UNIT) TAB TAKE ONE TABLET BY MOUTH ONCE DAILY FOR VITAMIN D DEFICIEN CY ORAL 01/04/2024 [id number] 4 SORAIDA MADSEN LLIAM S 2023 90 [facility] CHOLECALCIF LEVI 50MCG (2,000UNIT) TAB TAKE ONE TABLET BY MOUTH ONCE DAILY FOR VITAMIN SUPPLEME NTATION ORAL ACTIVE 03/07/2025 [id number] FAYE FLOOD 2023 100 [facility] CLONAZEPAM 0.5MG TAB TAKE ONE TABLET BY MOUTH TWICE DAILY NEEDED AND TAKE TWO TABLETS ONCE DAILY NEEDED FOR ANXIETY ORAL ACTIVE 02/07/2025 [id number] 5 BAILEY ORTIZ 2024 120 [facility] CLONAZEPAM 0.5MG TAB TAKE ONE TABLET BY MOUTH FOUR TIMES DAILY NEEDED ANXIETY ORAL DISCONT INUED BY PROVIDE R 09/02/2024 [id number] 5 BAILEY ORTIZ 2024 28 [facility] CLONAZEPAM 0.5MG TAB TAKE TWO TABLETS BY MOUTH ONCE DAILY AND TAKE ONE TABLET TWICE DAILY NEEDED ANXIETY ORAL DISCONT INUED 11/15/2024 [id number] 5 JAMIE HAWKINS MD 2023 120 [facility] CLONAZEPAM 0.5MG TAB TAKE TWO TABLETS BY MOUTH ONCE DAILY AND TAKE ONE TABLET TWICE DAILY NEEDED ORAL DISCONT INUED (EDIT) 10/14/2024 [id number] 4 JAMIE HAWKINS MD 2023 120 [facility] CLONAZEPAM 0.5MG TAB TAKE TWO TABLETS BY MOUTH ONCE DAILY AND TAKE ONE TABLET TWICE DAILY NEEDED ORAL DISCONT INUED (EDIT) 08/16/2024 [id number] 4 JAMIE HAWKINS MD 2023 120 [facility] CLONAZEPAM 0.5MG TAB TAKE TWO TABLETS BY MOUTH ONCE DAILY AND TAKE ONE TABLET TWICE DAILY NEEDED FOR ANXIETY ORAL DISCONT INUED (EDIT) 07/05/2024 [id number] 4 JAMIE HAWKINS MD 2023 120 [facility] CLONAZEPAM 0.5MG TAB TAKE TWO TABLETS BY MOUTH ONCE DAILY AND TAKE ONE TABLET TWICE DAILY NEEDED FOR ANXIETY ([facility] - NEXT FILL 01/20/24) ORAL DISCONT INUED (EDIT) 01/15/2024 [id number] 4 JAMIE HAWKINS MD 2023 28 [facility] CLONAZEPAM 0.5MG TAB TAKE ONE TABLET BY MOUTH EVERY MORNING AND TAKE ONE-HALF TABLET TWICE DAILY NEEDED FOR ANXIETY ORAL DISCONT INUED 04/08/2024 [id number] 4 JAMIE HAWKINS MD 2023 60 [facility] CLONAZEPAM 0.5MG TAB TAKE ONE TABLET BY MOUTH EVERY MORNING AND TAKE ONE-HALF TABLET TWICE DAILY NEEDED ANXIETY ORAL DISCONT INUED (EDIT) 02/05/2024 [id number] 4 JAMIE HAWKINS MD 2023 60 [facility] CLONAZEPAM 0.5MG TAB TAKE ONE TABLET BY MOUTH EVERY MORNING AND TAKE ONE-HALF TABLET TWICE DAILY NEEDED ORAL DISCONT INUED (EDIT) 01/01/2024 [id number] 3 JAMIE HAWKINS MD 2022 28 [facility] CLONAZEPAM 1MG TAB TAKE ONE TABLET BY MOUTH TWICE DAILY ORAL 05/13/2024 [id number] 4 FAYE FLOOD 2023 6 [facility] DILTIAZEM (EQV-CARDIZ EM AB3) 240MG 24HR CAP TAKE 1 CAPSULE BY MOUTH ONCE DAILY ORAL ACTIVE SORAIDA MADSENIAM S 2024 [facility] DILTIAZEM (EQV-TIAZAC AB4) 180MG 24HR CAP TAKE ONE CAPSULE BY MOUTH ONCE DAILY ORAL DISCONT INUED (EDIT) 08/12/2024 [id number] 4 FAYE FLOOD 2023 90 [facility] DILTIAZEM (EQV-TIAZAC AB4) 240MG 24HR CAP TAKE ONE CAPSULE BY MOUTH ONCE DAILY ORAL DISCONT INUED BY PROVIDE R 09/08/2024 [id number] 4 FAYE FLOOD 2023 90 [facility] DIPHTHERIA TOXOID 2UNT/TETANU S TOXOID 5UNT/0.5ML ADSORBED INJ INJECT 0.5ML INTRAMUS CULARLY NOW INTRAM USCULA R ACTIVE WILLIAM HE 2018 [facility] FERROUS GLUCONATE 324MG TAB TAKE ONE TABLET BY MOUTH ONCE DAILY TO SUPPLEME NT IRON ORAL ACTIVE 03/07/2025 [id number] 4 FAYE FLOOD 2023 100 [facility] HYDROMORPHO NE HCL 2MG TAB TAKE ONE TABLET BY MOUTH TWICE DAILY AND TAKE TWO TABLETS THREE TIMES A DAY FOR PAIN ORAL DISCONT INUED BY PROVIDE R 08/12/2024 [id number] 4 SORAIDA MADSEN LLIACass S 2023 224 [facility] LISINOPRIL 30MG TAB TAKE TWO TABLETS BY MOUTH ONCE DAILY TO CONTROL BLOOD PRESSURE ORAL DISCONT INUED BY PROVIDE R 01/17/2025 [id number] FAYE FLOOD 2023 180 [facility] LISINOPRIL 40MG TAB TAKE ONE TABLET BY MOUTH ONCE DAILY TO CONTROL BLOOD PRESSURE ORAL DISCONT INUED (EDIT) 08/26/2024 [id number] 4 FAYE FLOOD 2023 90 [facility] [place] LISINOPRIL 40MG TAB TAKE ONE TABLET BY MOUTH ONCE DAILY TO CONTROL BLOOD PRESSURE ORAL DISCONT INUED (EDIT) 04/15/2024 [id number] JENNY LEZAMA 2022 90 [facility] MELOXICAM 15MG TAB TAKE ONE TABLET BY MOUTH ONCE DAILY ORAL ACTIVE SORAIDA MADSEN S 2024 [facility] OMEPRAZOLE 20MG CAP,EC TAKE 1 CAPSULE BY MOUTH ONCE DAILY ORAL ACTIVE SORAIDA MADSEN LLIACass S 2022 [facility] OXYCODONE HCL 10MG/ACETAM INOPHEN 325MG TAB TAKE 1 TABLET BY MOUTH FIVE TIMES A DAY NEEDED FOR PAIN ORAL DISCONT INUED 08/26/2024 [id number] SORAIDA MADSEN S 2024 140 [facility] OXYCODONE HCL 10MG/ACETAM INOPHEN 325MG TAB TAKE 1 TABLET BY MOUTH FOUR TIMES DAILY NEEDED FOR PAIN ORAL DISCONT INUED BY PROVIDE R 07/16/2024 [id number] 4 JESSIKA KHAN 2023 112 [facility] OXYCODONE HCL 10MG/ACETAM INOPHEN 325MG TAB TAKE 1 TABLET BY MOUTH FOUR TIMES DAILY NEEDED NEXT FILL 07/20 ORAL DISCONT INUED BY PROVIDE R 07/15/2024 [id number] SORAIDA MADSENIACass S 2023 112 [facility] OXYCODONE HCL 10MG/ACETAM INOPHEN 325MG TAB TAKE 1 TABLET BY MOUTH FOUR TIMES DAILY NEEDED FOR PAIN ORAL DISCONT INUED 06/24/2024 [id number] 4 SORAIDA MADSEN LLIAM S 2023 112 [facility] OXYCODONE HCL 10MG/ACETAM INOPHEN 325MG TAB TAKE 1 TABLET BY MOUTH THREE TIMES DAILY NEEDED ORAL DISCONT INUED 06/15/2024 [id number] 4 EDWINSORAIDA OROZCO LLIAM S 2023 30 [facility] OXYCODONE HCL 10MG/ACETAM INOPHEN 325MG TAB TAKE 1 TABLET BY MOUTH FIVE TIMES A DAY NEEDED FOR PAIN ORAL 09/16/2024 [id number] 5 SORAIDA MADSEN S 2024 140 [facility] OXYCODONE HCL 5MG TAB TAKE TWO TABLETS BY MOUTH THREE TIMES DAILY NEEDED FOR PAIN (NEXT FILL 06/09/24 ) ORAL ACTIVE 06/09/2024 [id number] 4 SORAIDA MADSEN S 2023 180 [facility] OXYCODONE HCL 5MG TAB TAKE TWO TABLETS BY MOUTH FIVE TIMES A DAY FOR PAIN ORAL HOLD 10/07/2024 [id number] SORAIDA MADSENIAM S 2024 300 [facility] OXYCODONE HCL 5MG TAB TAKE TWO TABLETS BY MOUTH FOUR TIMES DAILY NEEDED FOR PAIN ORAL DISCONT INUED 04/05/2024 [id number] 4 JESSIKA KHAN 2023 224 [facility] OXYCODONE HCL 5MG TAB TAKE FOUR TABLETS BY MOUTH THREE TIMES DAILY NEEDED FOR PAIN [NEXT FILL 4] ORAL DISCONT INUED (EDIT) 02/03/2024 [id number] 4 SORAIDA MADSENIAM S 2023 336 [facility] OXYCODONE HCL 5MG TAB TAKE FOUR TABLETS BY MOUTH THREE TIMES DAILY NEEDED FOR PAIN [NEXT FILL 4] ORAL DISCONT INUED 01/06/2024 [id number] SORAIDA MADSEN LLIAM S 2023 336 [facility] OXYCODONE HCL 5MG TAB TAKE FOUR TABLETS BY MOUTH FOUR TIMES DAILY NEEDED FOR PAIN [NEXT FILL 11/05/19 24] ORAL DISCONT INUED 11/05/2023 [id number] 4 SORAIDA MADSEN LLIAM S 2023 448 [facility] OXYCODONE HCL 5MG TAB TAKE FOUR TABLETS BY MOUTH FOUR TIMES DAILY NEEDED FOR PAIN [NEXT FILL 4] ORAL DISCONT INUED 10/22/2023 [id number] SORAIDA MADSEN LLIAM S 2023 240 [facility] OXYCODONE HCL 5MG TAB TAKE FOUR TABLETS BY MOUTH FOUR TIMES DAILY NEEDED FOR PAIN [NEXT FILL 09/24/2023 ] ORAL DISCONT INUED 10/08/2023 [id number] SORAIDA MADSEN LLIAM S 2023 240 [facility] OXYCODONE HCL 5MG TAB TAKE TWO TABLETS BY MOUTH FOUR TIMES DAILY NEEDED FOR PAIN [NEXT FILL 09/21/23 ] ORAL DISCONT INUED 09/17/2023 [id number] SORAIDA MADSEN LLIAM S 2023 224 [facility] OXYCODONE HCL 5MG TAB TAKE TWO TABLETS BY MOUTH FOUR TIMES DAILY NEEDED FOR PAIN [NEXT FILL 08/24/23] ORAL DISCONT INUED 08/26/2023 [id number] SORAIDA MADSEN LLIAM S 2023 224 [facility] OXYCODONE HCL 5MG TAB TAKE TWO TABLETS BY MOUTH FOUR TIMES DAILY NEEDED NEXT FILL 04/17 ORAL 04/29/2024 [id number] 4 KUPBAKARISCH XAVIER,JESSIKA B 2023 112 [facility] OXYCODONE HCL 5MG TAB TAKE TWO TABLETS BY MOUTH FOUR TIMES DAILY NEEDED FOR PAIN [NEXT FILL 03/01/2024 ] ORAL 02/25/2024 [id number] SORAIDA MADSEN LLIAM S 2023 224 [facility] OXYCODONE HCL 5MG TAB TAKE FOUR TABLETS BY MOUTH THREE TIMES DAILY NEEDED FOR PAIN [NEXT FILL 4] ORAL 12/04/2023 [id number] SORAIDA MADSEN LLIAM S 2023 336 [facility] OXYCODONE HCL 5MG TAB TAKE TWO TABLETS BY MOUTH FOUR TIMES DAILY NEEDED FOR PAIN [NEXT FILL 07/22/23 ] ORAL 07/24/2023 [id number] SORAIDA MADSEN LLIAM S 2022 224 [facility] OXYGEN MISCELLANEO US USE DIRECTED NOT APPLIC ABLE ACTIVE SORAIDA MADSEN LLIAM S 2012 [facility] PREGABALIN 50MG CAP,ORAL TAKE ONE CAPSULE BY MOUTH TWICE DAILY ORAL ACTIVE 03/10/2025 [id number] 5 SORAIDA MADSEN LLIAM S 2024 60 [facility] TEMAZEPAM 30MG CAP TAKE ONE CAPSULE BY MOUTH AT BEDTIME NEEDED SLEEP ORAL ACTIVE 02/03/2025 [id number] 5 BAILEY ORTIZ 2024 30 [facility] TEMAZEPAM 30MG CAP TAKE ONE CAPSULE BY MOUTH AT BEDTIME NEEDED SLEEP ORAL DISCONT INUED 11/15/2024 [id number] 4 JAMIE HAWKINS MD 2023 30 [facility] TEMAZEPAM 30MG CAP TAKE ONE CAPSULE BY MOUTH AT BEDTIME NEEDED SLEEP ORAL DISCONT INUED (EDIT) 10/14/2024 [id number] 4 JAMIE HAWKINS MD 2023 30 [facility] TEMAZEPAM 30MG CAP TAKE ONE CAPSULE BY MOUTH AT BEDTIME NEEDED FOR SLEEP ORAL DISCONT INUED (EDIT) 07/05/2024 [id number] 4 JAMIE HAWKINS MD 2023 30 [facility] TEMAZEPAM 30MG CAP TAKE ONE CAPSULE BY MOUTH AT BEDTIME NEEDED FOR SLEEP ORAL DISCONT INUED (EDIT) 04/08/2024 [id number] 4 JAMIE HAWKINS MD 2023 30 [facility] TEMAZEPAM 30MG CAP TAKE ONE CAPSULE BY MOUTH AT BEDTIME NEEDED ORAL DISCONT INUED (EDIT) 10/21/2023 [id number] 4 JAMIE HAWKINS MD 2023 13 [facility] TEMAZEPAM 30MG CAP TAKE ONE CAPSULE BY MOUTH AT BEDTIME NEEDED ORAL DISCONT INUED (EDIT) 12/15/2023 [id number] 4 JAMIE HAWKINS MD 2022 30 [facility] UMECLIDINIU M 62.5MCG/MANISH ANTEROL 25MCG/ACTUA T INH,ORAL,30 D INHALE 1 INHALATI ON BY MOUTH ONCE DAILY RESPIR ATORY (INHAL ATION) ACTIVE Evi STRAUSS ICJANE 2017 [facility] Allergies, Adverse Reactions, Alerts Combined list of [...] to drug (finding) TARDIVE MYOCLONUS active 1 [facility] MORPHINE Propensity to adverse reactions to drug (finding) Anaphylaxis active 8 [facility] Immunizations Combined list of available immunizations from the Department of Defense and Veterans Affairs facilities. Immunization Series Date Given Administered By Site Reaction Lot Number CVX Code Drug Forensic Anthropologist Status Comments Source COVID-19 (MODERNA), MRNA, LNP-S, PF, 50 MCG/0.5 ML (AGES 12+ YEARS) 2023 PRABHU RING HY E RIGHT DELTO ID [id number] 312 complet ed [facility] INFLUENZA, HIGH-DOSE, TRIVALENT, PF 2023 CHILSON,TIMOT HY E RIGHT DELTO ID [id number] 135 complet ed [facility] COVID-19 (MODERNA), MRNA, LNP-S, PF, 50 MCG/0.5 ML (AGES 12+ YEARS) 4 2023 DEBORAOREN RIGHT DELTO ID [id number] 312 complet ed [facility] INFLUENZA, INJECTABLE, QUADRIVALENT, PRESERVATIVE FREE 2022 OREN CAZARES RIGHT DELTO ID [id number] A 150 complet ed [facility] [place] COVID-19 (MODERNA), MRNA, LNP-S, PF, 100 MCG OR 50 MCG DOSE 3 2020 207 complet ed MOD; [id number]; 2 [facility] COVID-19 (MODERNA), MRNA, LNP-S, PF, 100 MCG/0.5 ML DOSE 2 2020 207 complet ed [facility] COVID-19 (MODERNA), MRNA, LNP-S, PF, 100 MCG/0.5 ML DOSE 1 2020 207 complet ed MOD; [id number]; 1 [facility] INFLUENZA, UNSPECIFIED FORMULATION 2019 88 complet ed [facility] [place] TD (ADULT), 2 LF TETANUS TOXOID, PRESERVATIVE [...] 16, 2024 01:45 PM Reporting Lab: [address] [address] Performing Lab: [address] [address] [facility] AL[facility], ETHYL URINE PANEL PH [...] May 16, 2024 01:45 PM Reporting Lab: [facility] [address] [address] Performing Lab: [address] [address] [facility] ALCOHOL, ETHYL URINE PANEL CREATININE [...] May 16, 2024 01:45 PM Reporting [facility] [address] Performing Lab: [address] [address] [facility] ALCOHOL, ETHYL URINE PANEL SPECIFIC GRAVITY [...] 16, 2024 01:45 PM Reporting Lab: [address] [address] Performing Lab: [address] [address] [facility] AMPHETAM MICHELE SCREEN PANEL AMPHETAMIN ES [...] May 16, 2024 01:45 PM Reporting Lab: [facility] [place] [address] [address] Performing Lab: [facility] [place] [address] [address] [facility] AMPHETAM MICHELE SCREEN PANEL PH OF URINE [...] May 16, 2024 01:45 PM Reporting Lab: [facility] [place] [address] [address] Performing Lab: [facility] [place] [address] [address] [facility] AMPHETAM MICHELE SCREEN PANEL CREATININE [MASS/VOLU ME] [...] May 16, 2024 01:45 PM Reporting Lab: [facility] [place] [address] [address] Performing Lab: [facility] [place] [address] [address] [facility] [place] [facility] AMPHETAM MICHELE SCREEN PANEL SPECIFIC GRAVITY [...] May 16, 2024 01:45 PM Reporting Lab: [facility] [place] [address] [address] Performing Lab: [facility] [address] [address] [facility] BENZODIA ZEPINES SCREEN PANEL BENZODIAZE PINES [...] May 16, 2024 01:45 PM Reporting Lab: [facility] [place] [address] [address] Per[facility]: [facility] [place] [address] [address] [facility] [place] BENZODIA ZEPINES SCREEN PANEL PH OF URINE [...] May 16, 2024 01:45 PM Reporting Lab: [facility] [address] [address] Performing Lab: [facility] [address] [address] [facility] BENZODIA ZEPINES SCREEN PANEL CREATININE [MASS/VOLU ME] [...] May 16, 2024 01:45 PM Reporting Lab: [facility] [address] Performing [facility]: [facility] [address] [facility] BENZODIA ZEPINES SCREEN PANEL SPECIFIC GRAVITY OF [...] May 16, 2024 01:45 PM Reporting Lab: [facility] [address] Performing Lab: [address] [address] [facility] BUPRENOR PHINE SCREEN PANEL BUPRENORPH INE [...] 16, 2024 01:45 PM Reporting Lab: [address] [address] Performing Lab: [address] [address] [facility] BUPRENOR PHINE SCREEN PANEL PH OF [...] 16, 2024 01:45 PM Reporting Lab: [address] [address] Performing Lab: [address] [address] [facility] BUPRENOR PHINE SCREEN PANEL CREATININE [MASS/VOLU [...] May 16, 2024 01:45 PM Reporting Lab: [facility] [place] [address] [address] Performing Lab: [facility] [address] [facility] BUPRENOR PHINE SCREEN PANEL SPECIFIC GRAVITY OF [...] May 16, 2024 01:45 PM Reporting Lab: [facility] [address] Performing Lab: [facility] [address] [facility] CANNABIN OIDS SCREEN PANEL CANNABINOI DS [PRESENCE] [...] may have been adulterated . Ordering Provider: CUTLER,WILL NERISSA S Report Released Date/Time: May 16, 2024 01:45 PM Reporting Lab: [facility] [place] [facility] [address] [facility] [address] Performing Lab: [facility] [place] [facility] [address] [facility] [address] [facility] [place] [facility] CANNABIN OIDS SCREEN PANEL PH OF URINE [...] Reporting Lab: [facility] [place] [facility] [address] [place] [address] Performing Lab: [facility] [place] [address] [address] [facility] [place] [facility] CANNABIN OIDS SCREEN PANEL CREATININE [MASS/VOLU ME] [...] PM Reporting Lab: [facility] [place] [address] [address] Performing Lab: [facility] [place] [address] [address] [facility] [place] [facility] CANNABIN OIDS SCREEN PANEL SPECIFIC GRAVITY OF [...] 16, 2024 01:45 PM Reporting Lab: [address] [address] Performing Lab: [address] [address] [facility] COCAINE SCREEN PANEL COCAINE [PRESENCE] IN [...] May 16, 2024 01:45 PM Reporting Lab: [facility] [address] Performing Lab: [facility] [address] [facility] COCAINE SCREEN PANEL PH OF URINE [...] May 16, 2024 01:45 PM Reporting Lab: [facility] [address] [address] Performing Lab: [facility] [address] [address] [facility] COCAINE SCREEN PANEL CREATININE [MASS/VOLU ME] IN [...] May 16, 2024 01:45 PM Reporting Lab: [facility]PITALTRN [address] [address] Performing Lab: [facility] [address] [address] [facility] COCAINE SCREEN PANEL SPECIFIC GRAVITY OF [...] May 16, 2024 01:45 PM Reporting Lab: [facility]N [address] [address] Performing Lab: [facility] [address] [address] [facility] FENTANYL SCREEN PANEL FENTANYL [PRESENCE] IN [...] 16, 2024 01:45 PM Reporting Lab: [address] [address] Performing Lab: [address] [address] [facility] FENTANYL SCREEN PANEL PH OF URINE [...] 16, 2024 01:45 PM Reporting Lab: [address] [address] Performing Lab: [address] [address] [facility] FENTANYL SCREEN PANEL CREATININE [MASS/VOLU ME] [...] May 16, 2024 01:45 PM Reporting Lab: [facility] [place] [address] [address] Performing Lab: [facility]L.[facility]ITALTRN [facility] [address] [address] [facility] [place] [facility] FENTANYL SCREEN PANEL SPECIFIC GRAVITY OF URINE [...] SENT BY LAB. Ordering Provider: NOMAN MADSEN Report Released Date/Time: May 16, 2024 01:45 PM Reporting Lab: [facility] [place] [address] [address] Performing Lab: [facility] [place] [address] [facility] METHADON E SCREEN METHADONE [PRESENCE] IN URINE BY SCREEN METHOD None detected (Negativ e) 05/16 L Specimen Type: URINE Comment: BRISSA test are qualitative , any L or H flags only indicate a [facility] alert was sent. Ordering Provider: NOMAN MADSEN S Report Released Date/Time: May 16, 2024 01:45 PM Reporting Lab: [facility] [place] [address] [address] Performing Lab: [facility] [address] [facility] [address] [facility] OPIATES SCREEN PANEL OPIATES [PRESENCE] IN [...] 16, 2024 01:45 PM Reporting Lab: [address] [address] Performing Lab: [address] [address] [facility] OPIATES SCREEN PANEL PH OF URINE [...] 16, 2024 01:45 PM Reporting Lab: [address] [address] Performing Lab: [address] [address] [facility] OPIATES SCREEN PANEL CREATININE [MASS/VOLU ME] [...] 16, 2024 01:45 PM Reporting Lab: [address] [address] Performing Lab: [address] [address] [facility] OPIATES SCREEN PANEL SPECIFIC GRAVITY OF [...] 16, 2024 01:45 PM Reporting Lab: [address] [address] Performing Lab: [address] [address] [facility] OXYCODON E SCREEN PANEL OXYCODONE [PRESENCE] [...] May 16, 2024 01:45 PM Reporting Lab: [facility] CLARERL TRN [place] [address] [address] Performing Lab: [facility]L.[facility]ITALTRN [facility] [address] [facility]L.[facility]ITALTRN [facility] OXYCODON E SCREEN PANEL PH OF URINE [...] May 16, 2024 01:45 PM Reporting Lab: [facility] [address] [address] Performing Lab: [facility]ITALTRN [facility] [address] [facility] OXYCODON E SCREEN PANEL CREATININE [MASS/VOLU [...] May 16, 2024 01:45 PM Reporting Lab: [facility]TR[facility] [address] [address] Performing Lab: [facility]L.[facility]ITALTRN [facility] [address] [facility] OXYCODON E SCREEN PANEL SPECIFIC GRAVITY OF [...] PM Reporting Lab: [facility] [place] [facility] [address] [facility] [address] Performing Lab: [facility] [place] [facility] [address] [facility] [address] [facility] [place] [facility] Vital Signs Combined list of inpatient and [...] 15:15:14 [facility] [place] [facility] Encounters Combined list of: 1) Encounters from Department of Veterans Affairs facilities going backup to the last 18 months, not all VA inpatient encounters are included; 2) Encounters from the Department of Defense facilities going backup to 280 months. Location Location Details Encounter Type Encounter Number Reason For Visit Attending Provider ADM Date DC Date Status Disposition Source [facility] [place] [facility] Encounter [id number] 03/24 [facility] [place] [facility] [place] [facility] OFFICE O/P NEW SF 15-29 MIN [id number] Diagnos is: ICD-10- CM E66.9 Obesity , unspeci fied SUKHJINDER GARDUNO CE 03/25 [facility] [place] [facility] [place] [facility] OFF[facility] O/P EST MOD 30-39 MIN [id number] Diagnos is: ICD-10- CM G89.4 Chronic pain syndrom e LANDON MADSEN S 03/25 [facility] [place] [facility] [place] [facility] Encounter [id number] 03/25 [facility] [place] [facility] [place] [facility] Encounter [id number] 03/25 [facility] [place] [facility] [place] [facility] OFFICE O/P EST SF 10-19 MIN [id number] Diagnos is: ICD-10- CM F41.9 Anxiety disorde r, isabelli Pallavi Samayoa MD 03/31 [facility] [place] [facility] [place] [facility] En[facility] [id number] 03/31 [facility] [place] [facility] [place] [facility] Encounter [id number] 04/05 [facility] [place] [facility] [place] [facility] Encounter [id number] 04/05 [facility] [place] [facility] [place] [facility] En[facility] [id number] 04/05 [facility] [place] [facility] [place] QNHP OL DIG ASSMT&MGMT 5-10 [id number] Diagnos is: ICD-10- CM Z04.89 Encount er for examina tion and observa tion for oth reasons JESSA CONTI 04/07 [place] [facility] [place] [facility] Encounter [id number] 04/07 [facility] [place] [facility] [place] [facility] Encounter [id number] 04/15 [facility] [place] [facility] [place] [facility] En[facility] [id number] 04/15 [facility] [place] [facility] [place] [facility] Encounter [id number] 04/20 [facility] [place] [facility] [place] [facility] Encounter [id number] 04/20 [facility] [place] [facility] [place] [facility] Encounter [id number] 04/21 [facility] [place] [facility] [place] [facility] OFFICE O/P EST MOD 30-39 MIN [id number] Diagnos is: ICD-10- CM G89.4 Chronic pain syndrom e CUT[place]ON OROZCO S 04/21 [facility] [place] [facility] [place] [facility] En[facility] [id number] 04/21 [facility] [place] [facility] [place] [facility] Encounter [id number] 04/23 [facility] [place] [facility] [place] [facility] Encounter [id number] 05/04 [facility] [place] [facility] [place] [facility] Encounter [id number] 05/12 [facility] [place] [facility] [place] [facility] En[facility] [id number] 05/12 [facility] [place] [facility] [place] [facility] OFFICE O/P EST MOD 30-39 MIN [id number] Diagnos is: ICD-10- CM G89.4 Chronic pain syndrom e [place] OROZCO S 05/13 [facility] [place] [facility] [place] [facility] En[facility] [id number] 05/13 [facility] [place] [facility] [place] [facility] En[facility] [id number] 05/13 [facility] [place] [facility] [place] [facility] En[facility] [id number] 05/14 [facility] [place] [facility] [place] [facility] Encounter [id number] 05/17 [facility] [place] [facility] [place] [facility] En[facility] [id number] 05/21 [facility] [place] [facility] [place] [facility] En[facility] [id number] 05/27 [facility] [place] [facility] [place] [facility] En[facility] [id number] 05/31 [facility] [place] [facility] [place] [facility] TUBING WITH HEATING ELEMENT [id number] Diagnos is: ICD-10- CM G47.30 Sleep apnea, unspeci fied JARMOLOWIC Z,ROSALVA 05/31 [facility] [place] [facility] [place] En[facility] [id number] 06/11 [facility] [place] [facility] [place] [facility] En[facility] [id number] 06/23 [facility] [place] [facility] [place] [facility] OFFICE O/P EST MOD 30-39 MIN [id number] Diagnos is: ICD-10- CM G89.4 Chronic pain syndrom e CUTLER,LANDON SCHAFFER S 06/24 [facility] [place] [facility] [place] OFFICE O/P EST SF 10-19 MIN [id number] Diagnos is: ICD-10- CM F41.9 Anxiety disorde r, unspeci fied Pallavi HAWKINS MD 07/01 [facility] [place] [facility] [place] En[facility] [id number] 07/02 [facility] [place] [facility] [place] OFFICE O/P EST HI 40-54 MIN [id number] Diagnos is: ICD-10- CM G89.29 Other chronic pain KUPFERSCHM ID,JESSIKA B 07/05 [facility] [place] [facility] [place] En[facility] [id number] 07/06 [facility] [place] [facility] [facility] [place] Encounter [id number] 07/07 [facility] [place] [facility] [place] OFF/OP EST MAY X REQ PHY/QHP [id number] Diagnos is: ICD-10- CM Z23 Encount er for immuniz ation DROMANA DELACRUZ 07/08 [facility] [place] [facility] [facility] [place] En[facility] [id number] 07/13 [facility] [place] [facility] [place] En[facility] [id number] 07/13 [facility] [place] [facility] [place] [facility] En[facility] [id number] 07/13 [facility] [place] [facility] [place] [facility] En[facility] [id number] 07/14 [facility] [place] [facility] [place] En[facility] [id number] 07/15 [facility] [place] [facility] [facility] [place] En[facility] [id number] 07/27 [facility] [place] [facility] [place] [facility] OFFICE O/P EST LOW 20 MIN [id number] Diagnos is: ICD-10- CM G89.4 Chronic pain syndrom e LANDON MADSEN 07/27 [facility] [place] [facility] [facility] [place] En[facility] [id number] 07/28 [facility] [place] [facility] [facility] [place] En[facility] [id number] 08/03 [facility] [place] [facility] [place] OFFICE O/P EST SF 10 MIN [id number] Diagnos is: ICD-10- CM F41.9 Anxiety disorde r, unspeci Pallavi Samayoa MD 08/05 [facility] [place] [facility] [place] En[facility] [id number] 08/11 [facility] [place] [facility] [facility] [place] En[facility] [id number] 08/11 [facility] [place] [facility] [facility] [place] En[facility] [id number] 08/17 [facility] [place] [facility] [facility] [place] En[facility] [id number] 08/18 [facility] [place] [facility] [facility] [place] OFF[facility] O/P EST MOD 30 MIN [id number] Diagnos is: ICD-10- CM G89.4 Chronic pain syndrom e CUTPAM,LANDON SCHAFFER S 08/18 [facility] [place] [facility] En[facility] [id number] 08/20 [facility] [place] [facility] [facility] [place] En[facility] [id number] 08/23 [facility] [place] [facility] [facility] [place] En[facility] [id number] 08/24 [facility] [place] [facility] [place] COLLJ & INTERPJ DATA EA 30 D [id number] Diagnos is: ICD-10- CM G47.30 Sleep apnea, unspeci fied ANIKA CROW A 08/25 [facility] [place] [facility] En[facility] [id number] 08/27 [facility] [place] [facility] En[facility] [id number] 08/27 [facility] [place] [facility] Encounter [id number] 08/31 [facility] [place] [facility] Encounter [id number] 08/31 [facility] [place] [facility] Encounter [id number] 09/01 [facility] [place] [facility] En[facility] [id number] 09/01 [facility] [place] En[facility] [id number] 09/01 [facility] [place] [facility] En[facility] [id number] 09/02 [facility] [place] En[facility] [id number] 09/02 [facility] [place] HC PRO PHONE CALL 21-30 MIN [id number] Diagnos is: ICD-10- CM Z71.89 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 ed substance abuse counselor EVIE Presley 09/02 [facility] [place] En[facility] [id number] 09/02 [facility] [place] En[facility] [id number] 09/06 [facility] [place] En[facility] [id number] 09/07 [facility] [place] Encounter [id number] 09[facility]07 [facility] [place] En[facility] [id number] 09/08 [facility] [place] En[facility] [id number] 09/08 [facility] [place] OFFICE O/P EST MOD 30 MIN [id number] Diagnos is: ICD-10- CM Z23 Encount er for immuniz ROMANA Amaya 09/08 [facility] MTMS BY PHARM ADDL 15 MIN [id number] Diagnos is: ICD-10- CM G89.4 Chronic pain syndrom e TEP,SOPHOU S NEWMAN 09/08 [facility] En[facility] [id number] 09/08 [facility] Encounter [id number] 09/08 [facility] En[facility] [id number] 09/10 [facility] [id number] 09/10 [facility] Encounter [id number] 09/16 [facility] [place] En[facility] [id number] 09/16 [facility] [place] En[facility] [id number] 09/17 [facility] [place] En[facility] [id number] 09/22 [facility] En[facility] [id number] 09/23 [facility] [place] En[facility] [id number] 09/26 [facility] [place] En[facility] [id number] 09/29 [facility] [place] En[facility] [id number] 10/04 [facility] OFFICE O/P EST MOD 30 MIN [id number] Diagnos is: ICD-10- CM G89.4 Chronic pain syndrom e LANDON MADSEN 10/05 [facility] OFFICE O/P EST LOW 20 MIN [id number] Diagnos is: ICD-10- CM F41.9 Anxiety disorde r, unspeci Pallavi Samayoa MD 10/06 [facility] En[facility] [id number] 10/13 [facility] En[facility] [id number] 10/18 [facility] En[facility] [id number] 10/19 [facility] En[facility] [id number] 10/24 [facility] En[facility] [id number] 10/31 [facility] En[facility] [id number] 11/03 [facility] [id number] 11/07 [facility] [id number] 11/11 [facility] [id number] ADRIANA CERVANTES 11/14 [facility] En[facility] [id number] 11/15 [facility] OFFICE O/P EST MOD 30 MIN [id number] Diagnos is: ICD-10- CM G89.4 Chronic pain syndrom e LANDON MADSEN 11/16 [facility] [id number] 11/16 [facility] [id number] 12/05 [facility] En[facility] [id number] 12/05 [facility] CPAP FULL FACE MASK [id number] Diagnos is: ICD-10- CM G47.39 Other sleep apnea ANIKA CROW 12/06 [facility] [id number] 12/06 [facility] [id number] 12/21 [facility] [id number] 12/26 [facility] En[facility] [id number] 01/02 [facility] OFF[facility] O/P EST LOW 20 MIN [id number] Diagnos is: ICD-10- CM F41.9 Anxiety disorde r, unspeci Pallavi Samayoa MD 01/02 [facility] OFF[facility] O/P EST LOW 20 MIN [id number] Diagnos is: ICD-10- CM I10 Essenti al (primar y) hyperte nsion D'ALESSAND ROMANA JAMISON 01/16 [facility] En[facility] [id number] 01/24 [facility] OFF[facility] O/P EST MOD 30 MIN [id number] Diagnos is: ICD-10- CM G89.4 Chronic pain syndrom e LANDON MADSEN S 01/25 [facility] En[facility] [id number] 02/01 [facility] [id number] 02/02 [facility] [id number] 02/07 [facility] [id number] 02/07 [facility] [id number] 02/08 [facility] En[facility] [id number] 02/08 [facility] En[facility] [id number] Diagnos is: ICD-10- CM E87.5 Hyperka lemia EDWINLANDON OROZCO S 02/08 [facility] En[facility] [id number] 02/10 [facility] [id number] 02/10 [facility] [id number] 02/10 [facility] En[facility] [id number] 02/11 [facility] OFFICE O/P EST LOW 20 MIN [id number] Diagnos is: ICD-10- CM F41.9 Anxiety disorde r, unspeci Pallavi Samayoa MD 02/13 [facility] [id number] 02/23 [facility] [id number] 02/24 [facility] [facility] [id number] 03/02 [facility] Encounter [id number] 03/04 [facility] OFFICE O/P EST MOD 30 MIN [id number] Diagnos is: ICD-10- CM I10 Essenti al (primar y) hyperte ROMANA Lawrence 03/06 [facility] Encounter [id number] 1.03/16 [facility] HC PRO PHONE CALL 5-10 MIN [id number] 1. Diagnos is: ICD-10- CM J44.9 Chronic obstruc tive pulmona ry disease , unspeci fied JARMOLOWIC Z,ROSALVA 03/16 [facility] En[facility] [id number] 1.03/28 [facility] Encounter [id number] 1.03/30 [facility] QNHP OL DIG ASSMT&MGMT 5-10 [id number] 1. Diagnos is: ICD-10- CM G89.4 Chronic pain syndrom e TEP,SOPHOU S NEWMAN 03/30 [facility] Encounter [id number] 04/03 [facility] [id number] 04/05 [facility]counter [id number] 04/05 [facility] Encounter [id number] 04/06 [facility] Encounter [id number] Diagnos is: ICD-10- CM F41.9 Anxiety disorde r, unspeci Pallavi Samayoa MD 04/13 [facility] En[facility] [id number] 04/13 [facility] OFFICE O/P EST MOD 30 MIN [id number] Diagnos is: ICD-10- CM I50.9 Heart failure , unspeci fiROMANA Dowling 04/13 [facility] OFF/OP EST MAY X REQ PHY/QHP [id number] Diagnos is: ICD-10- CM Z23 Encount er for immuniz TARYN Nuñez E 04/13 [facility] En[facility] [id number] 04/14 [facility]counter [id number] 04/24 [facility] Encounter [id number] 05/03 [facility] Encounter [id number] 05/03 [facility] Encounter [id number] 05/09 [facility] Encounter [id number] 05/10 [facility] Encounter [id number] Diagnos is: ICD-10- CM G89.4 Chronic pain syndrom e LANDON MADSEN S 05/10 [facility] En[facility] [id number] 05/10 [facility] OFFICE O/P EST LOW 20 MIN [id number] Diagnos is: ICD-10- CM F41.9 Anxiety disorde r, unspeci Pallavi Samayoa MD 05/15 [facility] En[facility] [id number] 05/15 [facility] Encounter [id number] Diagnos is: ICD-10- CM G89.4 Chronic pain syndrom e LANDON MADSEN S 05/16 [facility] Encounter [id number] 05/19 [facility]counter [id number] [facility]counter [id number] 05/24 [facility] Encounter [id number] 05/24 [facility] OFFICE O/P EST HI 40 MIN [id number] Diagnos is: ICD-10- CM G89.4 Chronic pain syndrom e [place] OROZCO S 05/25 [facility] En[facility] [id number] 05/30 [facility] Encounter [id number] 06/01 [facility]counter [id number] 06/15 [facility]counter [id number] 06/20 [facility] Encounter [id number] 06/28 [facility] HC PRO PHONE CALL 11-20 MIN [id number] 1. Diagnos is: ICD-10- CM F41.9 Anxiety disorde r, unspeci fied KEMIP ATRICIA A 07/07 [facility] En[facility] [id number] 07/12 [facility] OFFICE O/P EST MOD 30 MIN [id number] Diagnos is: ICD-10- CM G89.4 Chronic pain syndrom e [place] OROZCO S 07/13 [facility] En[facility] [id number] 07/24 [facility] Encounter [id number] 07/25 [facility] PH1 ASSMT&MGMT NQHP 11-20 [id number] Diagnos is: ICD-10- CM G89.4 Chronic pain syndrom e LANDON MADSEN S 07/27 [facility] OFFICE O/P EST HI 40 MIN [id number] Diagnos is: ICD-10- CM F41.9 Anxiety disorde r, unspeci Cass Whitaker 08/03 [facility] Encounter [id number] 08/17 [facility] Encounter [id number] 08/21 [facility] Encounter [id number] 09/06 [facility] OFFICE O/P EST HI 40 MIN [id number] Diagnos is: ICD-10- CM G89.4 Chronic pain syndrom e [place] OROZCO S 09/07 [facility] Encounter [id number] 09/18 [facility] Social History Combined list of available smoking, tobacco, and other social history from Department of Defense and Veterans Affairs facilities. Social History Type Response Date Comment Source Tobacco smoking status [facility] FORMER USER 03/06/2024 [facility] History of tobacco use [facility] 15 YRS OR MORE 03/06/2024 [facility] History [facility] tobacco use AL-[facility]BACCO FORMER USER 03/31/2023 [facility] History of tobacco use [facility] NEVER USED 03/25/2022 [facility] History [facility] tobacco use [facility] 03/19/2021 [facility] History of tobacco use [facility] USE DECLINED TO ANSWER 09/20/2018 [facility] History of tobacco use QUIT TOBACCO USE IN PAST YEAR 10/21/2017 [facility] History of tobacco use QUIT TOBACCO USE 1-7 YEARS AGO 12/30/2016 [facility] History of tobacco use QUIT TOBACCO USE 1-7 YEARS AGO 06/04/2016 [facility] History of tobacco use QUIT TOBACCO USE 1-7 YEARS AGO 05/17/2015 quit 2 years ago. [facility] History of tobacco use QUIT TOBACCO USE 1-7 YEARS AGO 06/07/2014 [facility] History of tobacco use QUIT TOBACCO USE IN PAST YEAR 11/30/2013 [facility] History of tobacco use QUIT TOBACCO USE IN PAST YEAR 05/22/2013 [facility] History of tobacco use QUIT TOBACCO USE IN PAST YEAR 12/01/2012 [facility] History of tobacco use V1-PT DECLINES TOBACCO CESSATION MEDS 06[facility]07/2012 [facility] History of tobacco use CURRENT SMOKER 01/05/2012 intermittenly [facility] History of tobacco use V1-PT DECLINES TOBACCO CESSATION MEDS 02/17/2011 [facility] History of tobacco use QUIT TOBACCO USE IN PAST YEAR 08[facility]13[facility] of tobacco use QUIT TOBACCO USE IN PAST YEAR 02/19/2010 [facility] History of tobacco use QUIT TOBACCO USE IN PAST YEAR 09/13/2009 [facility] History of tobacco use V1-PT DECLINES TOBACCO CESSATION MEDS 02/05/2009 [facility] History of tobacco use QUIT TOBACCO USE IN PAST YEAR 08/22/2008 [facility] History of tobacco use V1-PT DECLINES TOBACCO CESSATION MEDS 03/12/2008 [facility] History of tobacco use CURRENT SMOKER 03/08/2008 smokes one pack a da y for about 10 years ago. [facility] Plan of Care List of future care activities from Department of [facility] Affairs facilities. Additional future care activities may be listed in the Assessment and Plan section. Date/Time Care Activity Care Activity Detail Facili ty 09/28/2024 AMBULATORY - MEDICINE AMBULATORY - MEDICI NE [facility] 09/28/2024 AMBULATORY - PSYCHIATRY AMBULATORY - PSYC HIATRY [facility] 11/09/2024 AMBULATORY - MEDICINE AMBULATORY - MEDICI NE [facility] 09/07/2024 Consult Order ACTIVE MANAGEMEN T OF PAIN (OUTPT) Cons Country Director's Choice [facility]
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
== END 2024-09-21 12:27 | disposition home or self-care (01) ==
PROVIDERS: PCP Internal Medicine; Visit Provider Internal Medicine Hypertension Specialist
DX: E87.5 Hyperkalemia (principal); N17.9 Acute kidney failure, unspecified; E87.3 Alkalosis
CPT/HCPCS: 99214

== ENCOUNTER 2024-09-21 12:07 | Outpatient (REF) | payer MEDICARE, MEDICAID, SELFPAY ==
--- OUTSIDE RECORDS SUMMARY | 2024-09-21 15:02 | XMS_ITS | Continuity of Care Document ---
Author Name [facility] Organization [facility] Care Team Providers Care Safety Technician Name Role Phone [facility] Unavailable Unavailable Problems Combined list of problems from Department of Defense and Veterans Affairs facilities. It does not include entries that were removed or entered in error. Problem Status Onset Date Problem Type Date of Resolution Comments Source AF- Atrial Fibrillation ([facility] [id number]) Active Condition Jan 26, 2024 Entered By: [...] 2023 Entered By: IRENE CASTILLO Comment: left aelxander lesin with slightly open area/vet will benefit from VNA and wound care eval in near future [facility] Hypertension (SNOMED CT 29790285) Active Condition [facility] Hysterectomy Active Condition Jan 03, 2009 Entered By: WENDY MADSEN Comment: -- 1994 in [place] for endometriosis, comp ov cyst [facility] [...] Long-term current use of anticoagulant Active Condition [facility] Microalbuminuria Active Condition Mar 06, 2024 Entered By: IRENE CASTILLO Comment: no diabetes/longsta nding HTN- 2023 [facility] Microscopic hematuria Active Condition Apr 16, 2014 Entered By: WENDY MADSEN Comment: noted 03/08 [facility] Myocardial infarction Active Condition May 05, 2022 Entered By: WENDY MADSEN Comment: -- acute NSTEMI 05/03/22 [facility] [place] [facility] Obesity Active Condition [facility] Opioid dependence (SNOMED CT 11331038) Active Condition Jun 27, 2018 Entered By: TAMRA STRAUSS Comment: Subox[place] in community [place] [facility] [place] [facility] Osteoarthritis of knee Active Condition Oct 25, 2014 Entered By: WENDY MADSEN Comment: -- steroid injection to left knee 10/07 Dr. Singleton [place] [facility] Osteomyelitis of right [...] By: IRENE CASTILLO Comment: on U/S at [facility]. repeat Aug 2024 / vet wants to plan this thru community [facility]CP [place] [facility] Sleep apnea (SNOMED CT 18870770) Active Condition Aug 18, 2016 Entered By: WENDY MADSEN Comment: -- treated with CPAP, needs clonazepam to tolerate it [facility] Tobacco dependence, continuous (SNOMED CT 226526737) Active Condition Aug 11, 2017 Entered By: LONG VARELA Comment: persists to smoke - 08/08/[address] [facility] with COPD exacerbation [facility] [...] VARELA Comment: 08/05/17 through 08/08/[address] [facility] for exacerbation. Still smoking [facility] Ankle: arthralgia * (ICD-9-CM 719.47) Inactive Condition 08/18/2016 [facility] [place] [facility] Asthma (SNOMED CT 381767309) Inactive Condition 02/24/2018 Apr 19, 2008 Entered By: WENDY MADSEN Comment: intermittent with severe exacerbations [facility] [place] [facility] Candidiasis, Oral Inactive Condition [facility] [place] [facility] Contact dermatitis due to plants Inactive Condition 08/18/2016 [facility] Counseling on Substance Use and Abuse (ICD-9-CM V65.42) Inactive Condition 08/06/2008 [facility] [place] [facility] Derangement of meniscus Inactive Condition 08/18/2016 Oct 25, 2014 Entered By: WENDY MADSEN Comment: -- left knee torn medial meniscus 09/09 [place] [facility] [place] [facility] Dyspnea Inactive Condition 02/24/2018 Aug 11, 2 018 Entered By: LONG VARELA Comment: admit 08/05/17 -08/08/[address] [facility]: COPD exacerbation , CHo also showed than mild pulmonary HTN , so question of a degree of cor pulmonale though had NL LVF , mild R cadiac chamber dilated [facility] Edema * (ICD-9-CM 782.3) Inactive Condition 02/24/2018 [facility] [place] [facility] Encounter for Vocational Therapy (ICD-9-CM V57.22) Inactive Condition 01/03/[address] [place] [facility] Hyperglycemia Inactive Condition 06/27/2018 Apr 262016 Entered By: LONG VARELA Comment: 6.8% [facility] February 2017 .Patient prefesr to recheck her l [facility] [place] [facility] Hypovolemia Inactive Condition 02/24/2018 Aug 11, 2017 Entered By: LONG VARELA Comment: 08/05/2017 -admitted to [facility] as self increased her lasix to 320 mg /day - when she had COPD exacerbation- seftreated as volume overload [facility] [place] [facility] Hypoxemia Inactive Condition 03/22/2018 May 20, 2 017 Entered By: LONG VARELA Comment: 05/20/2017 walking 73% and rest O2 85% at [facility] . [facility] Obesity (SNOMED CT 328887023) Inactive Condition 06/27/2018 [facility] [place] [...] and observation for oth reasons Active Diagnosis N[facility]ZEL Diagnosis: ICD-10-CM E66.9 Obesity, unspecified Active Diagnosis [...] DAILY NEEDED FOR PAIN ORAL ACTIVE 09/08/2025 [id number] SORAIDA MADSENM S 2024 200 [facility] ALBUTEROL 100MCG/IPRA TROPIUM BR 20MCG/SPRAY INHALER,ORA L,4GM INHALE 1 PUFF BY MOUTH FOUR TIMES A DAY AFTER MEALS AND AT BEDTIME RESPIR ATORY (INHAL ATION) ACTIVE LAUREENAL ICE [facility] APIXABAN 5MG TAB TAKE ONE TABLET BY MOUTH EVERY 12 HOURS FOR PREVENTI ON OF BLOOD CLOTS ORAL DISCONT INUED BY PROVIDE R 04/05/2024 [id number] FAYE FLOOD 2022 180 [facility] ATORVASTATI N CA 80MG TAB TAKE ONE TABLET BY MOUTH ONCE DAILY FOR CHOLESTE ROL ORAL DISCONT INUED (EDIT) 09/17/2023 [id number] 4 SORAIDA MADSEN S 2023 30 [facility] ATORVASTATI N CA 80MG TAB TAKE ONE TABLET BY MOUTH ONCE DAILY FOR CHOLESTE ROL ORAL 08/26/2024 [id number] FAYE FLOOD 2023 90 [facility] BUPRENORPHI NE HCL 2MG TAB,SUBLING UAL DISSOLVE TWO TABLETS UNDER THE TONGUE FOUR TIMES A DAY SUBLIN GUAL ACTIVE 11/25/2024 [id number] 5 SORAIDA MADSEN S 2023 240 [facility] BUPRENORPHI NE HCL 2MG TAB,SUBLING UAL DISSOLVE TWO TABLETS UNDER THE TONGUE FOUR TIMES A DAY SUBLIN GUAL DISCONT INUED 05/19/2024 [id number] SORAIDA MADSEN LLIAM S 2023 240 [facility] BUPRENORPHI NE HCL 2MG TAB,SUBLING UAL DISSOLVE ONE TABLET UNDER THE TONGUE FOUR TIMES A DAY SUBLIN GUAL DISCONT INUED (EDIT) 12/25/2023 [id number] 4 SORAIDA MADSEN LLIAM S 2022 120 [facility] CHOLECALCIF LEVI 10MCG (400UNIT) TAB TAKE ONE TABLET BY MOUTH ONCE DAILY FOR VITAMIN D DEFICIEN CY ORAL 01/04/2024 [id number] 4 SORAIDA MADSEN LLIAM S 2023 90 [facility] CHOLECALCIF LEVI 50MCG (2,000UNIT) TAB TAKE ONE TABLET BY MOUTH ONCE DAILY FOR VITAMIN SUPPLEME NTATION ORAL ACTIVE 03/07/2025 [id number] FAYE FLOOD 2023 100 [facility] CLONAZEPAM 0.5MG TAB TAKE ONE TABLET BY MOUTH TWICE DAILY NEEDED AND TAKE TWO TABLETS ONCE DAILY NEEDED FOR ANXIETY ORAL ACTIVE 02/07/2025 [id number] 5 BAILEY ORTIZ 2024 120 [facility] CLONAZEPAM 0.5MG TAB TAKE ONE TABLET BY MOUTH FOUR TIMES DAILY NEEDED ANXIETY ORAL DISCONT INUED BY PROVIDE R 09/02/2024 [id number] 5 BAILEY ORTIZ 2024 28 [facility] CLONAZEPAM 0.5MG TAB TAKE TWO TABLETS BY MOUTH ONCE DAILY AND TAKE ONE TABLET TWICE DAILY NEEDED ANXIETY ORAL DISCONT INUED 11/15/2024 [id number] 5 JAMIE HAWKINS MD 2023 120 [facility] CLONAZEPAM 0.5MG TAB TAKE TWO TABLETS BY MOUTH ONCE DAILY AND TAKE ONE TABLET TWICE DAILY NEEDED ORAL DISCONT INUED (EDIT) 10/14/2024 [id number] 4 JAMIE HAWKINS MD 2023 120 [facility] CLONAZEPAM 0.5MG TAB TAKE TWO TABLETS BY MOUTH ONCE DAILY AND TAKE ONE TABLET TWICE DAILY NEEDED ORAL DISCONT INUED (EDIT) 08/16/2024 [id number] 4 JAMIE HAWKINS MD 2023 120 [facility] CLONAZEPAM 0.5MG TAB TAKE TWO TABLETS BY MOUTH ONCE DAILY AND TAKE ONE TABLET TWICE DAILY NEEDED FOR ANXIETY ORAL DISCONT INUED (EDIT) 07/05/2024 [id number] 4 JAMIE HAWKINS MD 2023 120 [facility] CLONAZEPAM 0.5MG TAB TAKE TWO TABLETS BY MOUTH ONCE DAILY AND TAKE ONE TABLET TWICE DAILY NEEDED FOR ANXIETY ([facility] - NEXT FILL 01/20/24) ORAL DISCONT INUED (EDIT) 01/15/2024 [id number] 4 JAMIE HAWKINS MD 2023 28 [facility] CLONAZEPAM 0.5MG TAB TAKE ONE TABLET BY MOUTH EVERY MORNING AND TAKE ONE-HALF TABLET TWICE DAILY NEEDED FOR ANXIETY ORAL DISCONT INUED 04/08/2024 [id number] 4 JAMIE HAWKINS MD 2023 60 [facility] CLONAZEPAM 0.5MG TAB TAKE ONE TABLET BY MOUTH EVERY MORNING AND TAKE ONE-HALF TABLET TWICE DAILY NEEDED ANXIETY ORAL DISCONT INUED (EDIT) 02/05/2024 [id number] 4 JAMIE HAWKINS MD 2023 60 [facility] CLONAZEPAM 0.5MG TAB TAKE ONE TABLET BY MOUTH EVERY MORNING AND TAKE ONE-HALF TABLET TWICE DAILY NEEDED ORAL DISCONT INUED (EDIT) 01/01/2024 [id number] 3 JAMIE HAWKINS MD [address] [facility] CLONAZEPAM 1MG TAB TAKE ONE TABLET BY MOUTH TWICE DAILY ORAL 05/13/2024 [id number] FAYE FLOOD 2023 6 [facility] [place] DILTIAZEM (EQV-CARDIZ EM AB3) 240MG 24HR CAP TAKE 1 CAPSULE BY MOUTH ONCE DAILY ORAL ACTIVE SORAIDA MADSENIAM S 2024 [facility] DILTIAZEM (EQV-TIAZAC AB4) 180MG 24HR CAP TAKE ONE CAPSULE BY MOUTH ONCE DAILY ORAL DISCONT INUED (EDIT) 08/12/2024 [id number] 4 FAYE FLOOD [address] [facility] [place] DILTIAZEM (EQV-TIAZAC AB4) 240MG 24HR CAP TAKE ONE CAPSULE BY MOUTH ONCE DAILY ORAL DISCONT INUED BY PROVIDE R 09/08/2024 [id number] 4 FAYE FLOOD [address] [facility] [facility] [place] DIPHTHERIA TOXOID 2UNT/TETANU S TOXOID 5UNT/0.5ML ADSORBED INJ INJECT 0.5ML INTRAMUS CULARLY NOW INTRAM USCULA R ACTIVE WILLIAM HE [address] [facility] [place] FERROUS GLUCONATE 324MG TAB TAKE ONE TABLET BY MOUTH ONCE DAILY TO SUPPLEME NT IRON ORAL ACTIVE 03/07/2025 [id number] FAYE FLOOD [address] [facility] [facility] [place] HYDROMORPHO NE HCL 2MG TAB TAKE ONE TABLET BY MOUTH TWICE DAILY AND TAKE TWO TABLETS THREE TIMES A DAY FOR PAIN ORAL DISCONT INUED BY PROVIDE R 08/12/2024 [id number] 4 SORAIDA MADSEN LLIACass S 2023 224 [facility] LISINOPRIL 30MG TAB TAKE TWO TABLETS BY MOUTH ONCE DAILY TO CONTROL BLOOD PRESSURE ORAL DISCONT INUED BY PROVIDE R 01/17/2025 [id number] 4 FAYE FLOOD 2023 180 [place] [facility] [place] [facility] LISINOPRIL 40MG TAB TAKE ONE TABLET BY MOUTH ONCE DAILY TO CONTROL BLOOD PRESSURE ORAL DISCONT INUED (EDIT) 08/26/2024 [id number] FAYE FLOOD 2023 90 [place] [facility] [place] [facility] LISINOPRIL 40MG TAB TAKE ONE TABLET BY MOUTH ONCE DAILY TO CONTROL BLOOD PRESSURE ORAL DISCONT INUED (EDIT) 04/15/2024 [id number] JENNY LEZAMA 2022 90 [place] [facility] [place] [facility] MELOXICAM 15MG TAB TAKE ONE TABLET BY MOUTH ONCE DAILY ORAL ACTIVE SORAIDA MADSEN S 2024 [place] [facility] [place] [facility] OMEPRAZOLE 20MG CAP,EC TAKE 1 CAPSULE BY MOUTH ONCE DAILY ORAL ACTIVE SORAIDA MADSEN LLIACass S 2022 [place] [facility] [place] [facility] OXYCODONE HCL 10MG/ACETAM INOPHEN 325MG TAB TAKE 1 TABLET BY MOUTH FIVE TIMES A DAY NEEDED FOR PAIN ORAL DISCONT INUED 08/26/2024 [id number] SORAIDA MADSEN S 2024 140 [place] [facility] [place] [facility] OXYCODONE HCL 10MG/ACETAM INOPHEN 325MG TAB TAKE 1 TABLET BY MOUTH FOUR TIMES DAILY NEEDED FOR PAIN ORAL DISCONT INUED BY PROVIDE R 07/16/2024 [id number] JESSIKA KHAN 2023 112 [facility] [place] [facility] OXYCODONE HCL 10MG/ACETAM INOPHEN 325MG TAB TAKE 1 TABLET BY MOUTH FOUR TIMES DAILY NEEDED NEXT FILL 07/20 ORAL DISCONT INUED BY PROVIDE R 07/15/2024 [id number] SORAIDA MADSENIACass S 2023 112 [facility] [place] OXYCODONE HCL 10MG/ACETAM INOPHEN 325MG TAB TAKE 1 TABLET BY MOUTH FOUR TIMES DAILY NEEDED FOR PAIN ORAL DISCONT INUED 06/24/2024 [id number] SORAIDA MADSEN LLIAM S 2023 112 [facility] [place] OXYCODONE HCL 10MG/ACETAM INOPHEN 325MG TAB TAKE 1 TABLET BY MOUTH THREE TIMES DAILY NEEDED ORAL DISCONT INUED 06/15/2024 [id number] EDWINSORAIDA OROZCO LLIAM S 2023 30 [facility] [place] OXYCODONE HCL 10MG/ACETAM INOPHEN 325MG TAB TAKE 1 TABLET BY MOUTH FIVE TIMES A DAY NEEDED FOR PAIN ORAL 09/16/2024 [id number] SORAIDA MADSEN S 2024 140 [facility] [place] OXYCODONE HCL 5MG TAB TAKE TWO TABLETS BY MOUTH THREE TIMES DAILY NEEDED FOR PAIN (NEXT FILL 06/09/24 ) ORAL ACTIVE 06/09/2024 [id number] SORAIDA MADSEN S 2023 180 [facility] [place] OXYCODONE HCL 5MG TAB TAKE TWO TABLETS BY MOUTH FIVE TIMES A DAY FOR PAIN ORAL HOLD 10/07/2024 [id number] SORAIDA MADSENIAM S 2024 300 [facility] [place] OXYCODONE HCL 5MG TAB TAKE TWO TABLETS BY MOUTH FOUR TIMES DAILY NEEDED FOR PAIN ORAL DISCONT INUED 04/05/2024 [id number] JESSIKA KHAN 2023 224 [facility] [place] OXYCODONE HCL 5MG TAB TAKE FOUR TABLETS BY MOUTH THREE TIMES DAILY NEEDED FOR PAIN [NEXT FILL 4] ORAL DISCONT INUED (EDIT) 02/03/2024 [id number] 4 SORAIDA MADSENIAM S 2023 336 [facility] [place] OXYCODONE HCL 5MG TAB TAKE FOUR TABLETS BY MOUTH THREE TIMES DAILY NEEDED FOR PAIN [NEXT FILL 4] ORAL DISCONT INUED 01/06/2024 [id number] 4 SORAIDA MADSEN LLIAM S 2023 336 [facility] [place] OXYCODONE HCL 5MG TAB TAKE FOUR TABLETS BY MOUTH FOUR TIMES DAILY NEEDED FOR PAIN [NEXT FILL 11/05/19 24] ORAL DISCONT INUED 11/05/2023 [id number] SORAIDA MADSEN LLIAM S 2023 448 [facility] [place] OXYCODONE HCL 5MG TAB TAKE FOUR TABLETS BY MOUTH FOUR TIMES DAILY NEEDED FOR PAIN [NEXT FILL 4] ORAL DISCONT INUED 10/22/2023 [id number] SORAIDA MADSEN LLIAM S 2023 240 [facility] [place] OXYCODONE HCL 5MG TAB TAKE FOUR TABLETS BY MOUTH FOUR TIMES DAILY NEEDED FOR PAIN [NEXT FILL 09/24/2023 ] ORAL DISCONT INUED 10/08/2023 [id number] SORAIDA MADSEN LLIAM S 2023 240 [facility] [place] OXYCODONE HCL 5MG TAB TAKE TWO TABLETS BY MOUTH FOUR TIMES DAILY NEEDED FOR PAIN [NEXT FILL 09/21/23 ] ORAL DISCONT INUED 09/17/2023 [id number] SORAIDA MADSEN LLIAM S 2023 224 [facility] [place] OXYCODONE HCL 5MG TAB TAKE TWO TABLETS BY MOUTH FOUR TIMES DAILY NEEDED FOR PAIN [NEXT FILL 08/24/23] ORAL DISCONT INUED 08/26/2023 [id number] SORAIDA MADSEN LLIAM S 2023 224 [facility] [place] OXYCODONE HCL 5MG TAB TAKE TWO TABLETS BY MOUTH FOUR TIMES DAILY NEEDED NEXT FILL 04/17 ORAL 04/29/2024 [id number] 4 KUPBAKARISCH XAVIER,JESSIKA B 2023 112 [facility] [place] OXYCODONE HCL 5MG TAB TAKE TWO TABLETS BY MOUTH FOUR TIMES DAILY NEEDED FOR PAIN [NEXT FILL 03/01/2024 ] ORAL 02/25/2024 [id number] SORAIDA MADSEN LLIAM S 2023 224 [facility] [place] [facility] OXYCODONE HCL 5MG TAB TAKE FOUR TABLETS BY MOUTH THREE TIMES DAILY NEEDED FOR PAIN [NEXT FILL 4] ORAL 12/04/2023 [id number] SORAIDA MADSEN LLIAM S 2023 336 [facility] [place] OXYCODONE HCL 5MG TAB TAKE TWO TABLETS BY MOUTH FOUR TIMES DAILY NEEDED FOR PAIN [NEXT FILL 07/22/23 ] ORAL 07/24/2023 [id number] SORAIDA MADSEN LLIAM S 2022 224 [facility] [place] OXYGEN MISCELLANEO US USE DIRECTED NOT APPLIC ABLE ACTIVE SORAIDA MADSEN LLIAM S 2012 [facility] [place] PREGABALIN 50MG CAP,ORAL TAKE ONE CAPSULE BY MOUTH TWICE DAILY ORAL ACTIVE 03/10/2025 [id number] 5 SORAIDA MADSEN LLIAM S 2024 60 [facility] [place] TEMAZEPAM 30MG CAP TAKE ONE CAPSULE BY MOUTH AT BEDTIME NEEDED SLEEP ORAL ACTIVE 02/03/2025 [id number] BAILEY ORTIZ 2024 30 [facility] TEMAZEPAM 30MG CAP TAKE ONE CAPSULE BY MOUTH AT BEDTIME NEEDED SLEEP ORAL DISCONT INUED 11/15/2024 [id number] JAMIE HAWKINS MD 2023 30 [facility] TEMAZEPAM 30MG CAP TAKE ONE CAPSULE BY MOUTH AT BEDTIME NEEDED SLEEP ORAL DISCONT INUED (EDIT) 10/14/2024 [id number] 4 JAMIE HAWKINS MD [address] [facility] TEMAZEPAM 30MG CAP TAKE ONE CAPSULE BY MOUTH AT BEDTIME NEEDED FOR SLEEP ORAL DISCONT INUED (EDIT) 07/05/2024 [id number] 4 JAMIE HAWKINS MD [address] [facility] [place] TEMAZEPAM 30MG CAP TAKE ONE CAPSULE BY MOUTH AT BEDTIME NEEDED FOR SLEEP ORAL DISCONT INUED (EDIT) 04/08/2024 [id number] 4 JAMIE HAWKINS MD 2023 30 [facility] TEMAZEPAM 30MG CAP TAKE ONE CAPSULE BY MOUTH AT BEDTIME NEEDED ORAL DISCONT INUED (EDIT) 10/21/2023 [id number] 4 JAMIE HAWKINS MD [address] [facility] TEMAZEPAM 30MG CAP TAKE ONE CAPSULE BY MOUTH AT BEDTIME NEEDED ORAL DISCONT INUED (EDIT) 12/15/2023 [id number] JAMIE HAWKINS MD 2022 30 [facility] UMECLIDINIU M 62.5MCG/MANISH ANTEROL 25MCG/ACTUA T INH,ORAL,30 D INHALE 1 INHALATI ON BY MOUTH ONCE DAILY RESPIR ATORY (INHAL ATION) ACTIVE Evi STRAUSS ICJANE [facility] Allergies, Adverse Reactions, [...] to drug (finding) TARDIVE MYOCLONUS active 1 [facility] MORPHINE Propensity to adverse reactions to drug (finding) Anaphylaxis active 8 [facility] [place] [facility] Immunizations Combined list of available immunizations from the Department of Defense and Veterans Affairs facilities. Immunization Series Date Given Administered By Site Reaction Lot Number CVX Code Drug Siding Coreboard Inspector Status Comments Source COVID-19 (MODERNA), MRNA, LNP-S, PF, 50 MCG/0.5 ML (AGES 12+ YEARS) 2023 PRABHU RING HY E RIGHT DELTO ID [id number] 312 complet ed [facility] INFLUENZA, HIGH-DOSE, TRIVALENT, PF 2023 CHILSON,TIMOT HY E RIGHT DELTO ID [id number] 135 complet ed [facility] COVID-19 (MODERNA), MRNA, LNP-S, PF, 50 MCG/0.5 ML (AGES 12+ YEARS) 4 2023 DEBORAOREN RIGHT DELTO ID [id number] 312 complet ed [facility] INFLUENZA, INJECTABLE, QUADRIVALENT, PRESERVATIVE FREE 2022 OREN CAZARES RIGHT DELTO ID [id number] 150 complet ed [facility] [place] [facility] COVID-19 (MODERNA), MRNA, LNP-S, PF, 100 MCG OR 50 MCG DOSE 3 2020 207 complet ed MOD; [id number]; 2 [facility] COVID-19 (MODERNA), MRNA, LNP-S, PF, 100 MCG/0.5 ML DOSE 2 2020 207 complet ed [facility] COVID-19 (MODERNA), MRNA, LNP-S, PF, 100 MCG/0.5 ML DOSE 1 2020 207 complet ed MOD; [id number]; 1 [facility] INFLUENZA, UNSPECIFIED FORMULATION 2019 88 complet ed [facility] [place] [facility] TD (ADULT), 2 LF TETANUS TOXOID, PRESERVATIVE [...] 16, 2024 01:45 PM Reporting Lab: [address] [address] Performing Lab: [address] [address] [facility] AL[facility], ETHYL URINE PANEL PH OF URINE [...] May 16, 2024 01:45 PM Reporting Lab: [facility] [address] Performing Lab: [address] [address] [facility] ALCOHOL, ETHYL URINE PANEL CREATININE [MASS/VOLU ME] [...] May 16, 2024 01:45 PM Reporting Lab: [facility] [address] Performing Lab: [address] [address] [facility] ALCOHOL, ETHYL URINE PANEL SPECIFIC GRAVITY [...] 16, 2024 01:45 PM Reporting Lab: [address] [address] Performing Lab: [address] [address] [facility] AMPHETAM MICHELE SCREEN PANEL AMPHETAMIN ES [...] May 16, 2024 01:45 PM Reporting Lab: [facility] [place] [address] [address] Performing Lab: [facility] [place] [address] [address] [facility] AMPHETAM MICHELE [...] May 16, 2024 01:45 PM Reporting Lab: [facility] [place] [address] [address] Performing Lab: [facility] [place] [address] [address] [facility] [place] [facility] AMPHETAM MICHELE SCREEN [...] May 16, 2024 01:45 PM Reporting Lab: [place] [facility] [place] [address] [address] Performing Lab: [facility] [place] [address] [address] [facility] [place] [facility] AMPHETAM MICHELE SCREEN PANEL SPECIFIC GRAVITY [...] PM Reporting Lab: [facility] [address] [address] Performing Lab: [facility] W[address]appUSE[address] [address] [facility] BENZODIA ZEPINES SCREEN PANEL BENZODIAZE PINES [PRESENCE] [...] 16, 2024 01:45 PM Reporting Lab: [facility] [place] [address] [address] Performing Lab: [facility] [place] [address] [address] [address] [facility] WinkappUSE [facility] BENZODIA ZEPINES SCREEN PANEL PH OF [...] May 16, 2024 01:45 PM Reporting Lab: [facility] [address] [address] Performing Lab: [facility] [address] [address] [facility] BENZODIA ZEPINES SCREEN PANEL CREATININE [MASS/VOLU [...] PM Reporting Lab: [facility]PITALUSE[address] [address] Performing Lab: [facility]USE[address] [address] [facility]ITAL[facility] BENZODIA ZEPINES SCREEN PANEL SPECIFIC GRAVITY [...] May 16, 2024 01:45 PM Reporting Lab: [facility]ITALUSE[address] [address] Performing Lab: [address] [address] [facility] BUPRENOR PHINE SCREEN PANEL BUPRENORPH INE [...] 16, 2024 01:45 PM Reporting Lab: [address] [address] Performing Lab: [address] [address] [facility] BUPRENOR PHINE SCREEN PANEL PH OF [...] 16, 2024 01:45 PM Reporting Lab: [address] [address] Performing Lab: [address] [address] [facility] BUPRENOR PHINE SCREEN PANEL CREATININE [MASS/VOLU [...] May 16, 2024 01:45 PM Reporting Lab: [facility] [place] [address] [address] Performing Lab: [facility]ITALUSE[address] [address] [facility] BUPRENOR PHINE SCREEN PANEL SPECIFIC GRAVITY [...] PM Reporting Lab: [facility]ITALUSE[address] [address] Performing Lab: [facility] [address] [facility] [address] [facility]ITAL[facility] CANNABIN OIDS SCREEN PANEL CANNABINOI DS [...] Lab: [facility] [place] [facility] [address] [facility] [address] Performing Lab: [facility] [place] [facility] [address] [facility] [address] [facility] [place] [facility] CANNABIN [...] Reporting Lab: [facility] [place] [facility] [address] [place] [address] Performing Lab: [facility] [place] [address] [address] [facility] [place] [facility] CANNABIN [...] PM Reporting Lab: [facility] [place] [address] [address] Performing Lab: [facility] [place] [address] [address] [facility] [place] [facility] CANNABIN [...] 16, 2024 01:45 PM Reporting Lab: [address] [address] Performing Lab: [address] [address] [facility] COCAINE SCREEN PANEL COCAINE [PRESENCE] IN [...] PM Reporting Lab: [facility] [address] [facility]ITALUSE[address] [address] Performing Lab: [facility] [address] [facility] COCAINE SCREEN PANEL PH OF URINE [...] May 16, 2024 01:45 PM Reporting Lab: [facility]TRN [facility]OSPITALUSETS [address] [address] Performing Lab: [facility]PITALRDECATUR MORGAN HOSPITALN [address] [address] [facility] COCAINE SCREEN PANEL CREATININE [MASS/VOLU ME] IN [...] May 16, 2024 01:45 PM Reporting Lab: [facility] CENTERTRN [address] [address] Performing Lab: [facility] CENTERTRN [address] [address] [facility] COCAINE SCREEN PANEL SPECIFIC GRAVITY OF [...] May 16, 2024 01:45 PM Reporting Lab: [facility]ITALRDECATUR MORGAN HOSPITALN [address] [address] Performing Lab: [facility] [address] [address] [facility] FENTANYL SCREEN PANEL FENTANYL [PRESENCE] IN [...] 16, 2024 01:45 PM Reporting Lab: [address] [address] Performing Lab: [address] [address] [facility] FENTANYL SCREEN PANEL PH OF URINE [...] 16, 2024 01:45 PM Reporting Lab: [address] [address] Performing Lab: [address] [address] [facility] FENTANYL SCREEN PANEL CREATININE [MASS/VOLU ME] [...] May 16, 2024 01:45 PM Reporting Lab: [place] [facility] [address] [address] Performing Lab: [facility]ITALR[facility]BI[facility]ENTERTRN [facility]CH[facility]ETS [address] [address] [place] [facility] FENTANYL SCREEN PANEL SPECIFIC GRAVITY OF [...] 16, 2024 01:45 PM Reporting Lab: [facility] [place] [address] [address] Performing Lab: [facility] [place] [address] [facility] METHADON E SCREEN METHADONE [PRESENCE] IN URINE BY SCREEN METHOD None detected (Negativ e) 05/16 L Specimen Type: URINE Comment: BRISSA test are qualitative , any L or H flags only indicate a [facility] alert was sent. Ordering Provider: NOMAN MADSEN S Report Released Date/Time: May 16, 2024 01:45 PM Reporting Lab: [facility] [place] [address] [address] Performing Lab: [facility] [address] [facility] [address] [facility] OPIATES SCREEN PANEL OPIATES [PRESENCE] [...] 16, 2024 01:45 PM Reporting Lab: [address] [address] Performing Lab: [address] [address] [facility] OPIATES SCREEN PANEL PH OF URINE [...] 16, 2024 01:45 PM Reporting Lab: [address] [address] Performing Lab: [address] [address] [facility] OPIATES SCREEN PANEL CREATININE [MASS/VOLU ME] [...] 16, 2024 01:45 PM Reporting Lab: [address] [address] Performing Lab: [address] [address] [facility] OPIATES SCREEN PANEL SPECIFIC GRAVITY [...] 16, 2024 01:45 PM Reporting Lab: [address] [address] Performing Lab: [address] [address] [facility] OXYCODON E SCREEN PANEL OXYCODONE [PRESENCE] [...] May 16, 2024 01:45 PM Reporting Lab: [facility]ITALRL TRN [place] [address] [address] Performing Lab: [facility]ITALRMOBI[facility]ENTERTRN [facility]USE[address] [address] [facility]ITALRMOBI[facility]ENTERTRN [facility]OSPITALUSE [facility] OXYCODON E SCREEN PANEL PH OF [...] PM Reporting Lab: [facility] [address] [address] Performing Lab: [facility]ITALR[facility]BI[facility]ENTERTRN [facility]USE[address] [address] [facility] OXYCODON E SCREEN PANEL CREATININE [MASS/VOLU [...] May 16, 2024 01:45 PM Reporting Lab: [facility]ITALR[facility]BI[facility]ENTERTRN [address]SE[address] [address] Performing Lab: [facility]ENTERTRN [facility]USE[address] [address] [facility] [facility] OXYCODON E SCREEN PANEL SPECIFIC GRAVITY OF [...] [facility] [facility] [address] [facility] [address] Performing Lab: [facility] [place] [facility] [address] [facility] [address] [facility] [place] [facility] Vital Signs Combined list of inpatient [...] [facility] [place] [facility] En[facility] [id number] 03/24 [facility] [place] [place] OFFICE O/P NEW SF 15-29 MIN [id number] Diagnos is: ICD-10- CM E66.9 Obesity , unspeci fied SUKHJINDER GARDUNO CE 03/25 [facility] [place] [place] O/P EST MOD 30-39 MIN [id number] Diagnos is: ICD-10- CM G89.4 Chronic pain syndrom e LANDON MADSEN S 03/25 [facility] [place] [place] En[facility] [id number] 03/25 [facility] [place] [place] En[facility] [id number] 03/25 [facility] [place] [place] OFF[facility] O/P EST SF 10-19 MIN [id number] Diagnos is: ICD-10- CM F41.9 Anxiety disorde r, isabelli Pallavi Samayoa MD 03/31 [facility] [place] [place] En[facility] [id number] 03/31 [facility] [place] [place] En[facility] [id number] 04/05 [facility] [place] [place] En[facility] [id number] 04/05 [facility] [place] [place] En[facility] [id number] 04/05 [facility] [place] [facility] [place] QNHP OL DIG ASSMT&MGMT 5-10 [id number] Diagnos is: ICD-10- CM Z04.89 Encount er for examina tion and observa tion for oth reasons JESSA CONTI 04/07 [place] [facility] [place] [facility] En[facility] [id number] 04/07 [facility] [place] [place] En[facility] [id number] 04/15 [facility] [place] [place] En[facility] [id number] 04/15 [facility] [place] [place] En[facility] [id number] 04/20 [facility] [place] [place] En[facility] [id number] 04/20 [facility] [place] [place] En[facility] [id number] 04/21 [facility] [place] [place] OFF[facility] O/P EST MOD 30-39 MIN [id number] Diagnos is: ICD-10- CM G89.4 Chronic pain syndrom e CUT[place]ON OROZCO S 04/21 [facility] [place] En[facility] [id number] 04/21 [facility] [place] [place] En[facility] [id number] 04/23 [facility] [place] [place] Encounter [id number] 05/04 [facility] [place] [place] En[facility] [id number] 05/12 [facility] [place] [place] En[facility] [id number] 05/12 [facility] [place] [place] OFF[facility] O/P EST MOD 30-39 MIN [id number] Diagnos is: ICD-10- CM G89.4 Chronic pain syndrom e [place] OROZCO S 05/13 [facility] [place] [place] En[facility] [id number] 05/13 [facility] [place] [place] En[facility] [id number] 05/13 [facility] [place] [place] En[facility] [id number] 05/14 [facility] [place] [place] En[facility] [id number] 05/17 [facility] [place] [place] En[facility] [id number] 05/21 [facility] [place] [place] En[facility] [id number] 05/27 [facility] [place] [place] En[facility] [id number] 05/31 [facility] [place] [place] TUBING WITH HEATING ELEMENT [id number] Diagnos is: ICD-10- CM G47.30 Sleep apnea, unspeci fied JARMOLOWIC Z,ROSALVA 05/31 [facility] [place] [place] En[facility] [id number] 06/11 [facility] [place] [place] En[facility] [id number] 06/23 [facility] [place] [place] OFF[facility] O/P EST MOD 30-39 MIN [id number] Diagnos is: ICD-10- CM G89.4 Chronic pain syndrom e CUTLER,LANDON SCHAFFER S 06/24 [facility] [place] OFF[facility] O/P EST SF 10-19 MIN [id number] [id number] Diagnos is: ICD-10- CM F41.9 Anxiety disorde r, unspeci fied Pallavi HAWKINS MD 07/01 [facility] En[facility] [id number] 07/02 [facility] [place] OFF[facility] O/P EST HI 40-54 MIN [id number] Diagnos is: ICD-10- CM G89.29 Other chronic pain KUPFERSCHM ID,JESSIKA B 07/05 [facility] [place] En[facility] [id number] 07/06 [facility] [place] Encounter [id number] 07/07 [facility] [place] OFF/OP EST MAY X REQ PHY/QHP [id number] Diagnos is: ICD-10- CM Z23 Encount er for immuniz ation DROMANA DELACRUZ 07/08 [facility] [place] En[facility] [id number] 07/13 [facility] [place] En[facility] [id number] 07/13 [facility] [place] Encounter [id number] 07/13 [facility] [place] [place] Encounter [id number] 07/14 [facility] [place] En[facility] [id number] 07/15 [facility] [place] En[facility] [id number] 07/27 [facility] [place] [place] OFF[facility] O/P EST LOW 20 MIN [id number] Diagnos is: ICD-10- CM G89.4 Chronic pain syndrom e LANDON MADSEN 07/27 [facility] En[facility] [id number] 07/28 [facility] [place] Encounter [id number] 08/03 [facility] [place] [place] OFF[facility] O/P EST SF 10 MIN [id number] Diagnos is: ICD-10- CM F41.9 Anxiety disorde r, unspeci Pallavi Samayoa MD 08/05 [facility] [place] En[facility] [id number] 08/11 [facility] [place] En[facility] [id number] 08/11 [facility] [place] En[facility] [id number] 08/17 [facility] [place] [place] En[facility] [id number] 08/18 [facility] [place] OFF[facility] O/P EST MOD 30 MIN [id number] Diagnos is: ICD-10- CM G89.4 Chronic pain syndrom e CUTPAM,LANDON SCHAFFER S 08/18 [facility] En[facility] [id number] 08/20 [facility] [place] En[facility] [id number] 08/23 [facility] En[facility] [id number] 08/24 [facility] COLLJ & INTERPJ DATA EA 30 D [id number] Diagnos is: ICD-10- CM G47.30 Sleep apnea, unspeci fied ANIKA CROW A 08/25 [facility] En[facility] [id number] 08/27 [facility] [place] En[facility] [id number] 08/27 [facility] En[facility] [id number] 08/31 [facility] [place] En[facility] [id number] 08/31 [facility] [place] En[facility] [id number] 09/01 [facility] [place] En[facility] [id number] 09/01 [facility] En[facility] [id number] 09/01 [facility] [place] En[facility] [id number] 09/02 [facility] En[facility] [id number] 09/02 [facility] [place] HC PRO PHONE CALL 21-30 MIN [id number] Diagnos is: ICD-10- CM Z71.89 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 ed 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 EVIE Presley 09/02 [facility] En[facility] [id number] 09/02 [facility] [place] En[facility] [id number] 09/06 [facility] [place] En[facility] [id number] 09/07 [facility] [place] En[facility] [id number] 09/07 [facility] [place] Encounter [id number] 09/08 [facility] [place] En[facility] [id number] 09/08 [facility] [place] OFF[facility] O/P EST MOD 30 MIN [id number] Diagnos is: ICD-10- CM Z23 Encount er for immuniz ROMANA Amaya 09/08 [facility] MTMS BY PHARM ADDL 15 MIN [id number] Diagnos is: ICD-10- CM G89.4 Chronic pain syndrom e TEP,SOPHOU S NEWMAN 09/08 [facility] [id number] 09/08 [facility] En[facility] [id number] 09/08 [facility] En[facility] [id number] 09/10 [facility] En[facility] [id number] 09/10 [facility] En[facility] [id number] 09/16 [facility] En[facility] [id number] 09/16 [facility] En[facility] [id number] 09/17 [facility] En[facility] [id number] 09/22 [facility] En[facility] [id number] 09/23 [facility] En[facility] [id number] 09/26 [facility] En[facility] [id number] 09/29 [facility] En[facility] [id number] 10/04 [facility] OFF[facility] O/P EST MOD 30 MIN [id number] Diagnos is: ICD-10- CM G89.4 Chronic pain syndrom e LANDON MADSEN 10/05 [facility] OFF[facility] O/P EST LOW 20 MIN [id number] Diagnos is: ICD-10- CM F41.9 Anxiety disorde r, unspeci Pallavi Samayoa MD 10/06 [facility] [id number] 10/13 [facility] En[facility] [id number] 10/18 [facility] En[facility] [id number] 10/19 [facility] En[facility] [id number] 10/24 [facility] En[facility] [id number] 10/31 [facility] En[facility] [id number] 11/03 [facility] En[facility] [id number] 11/07 [facility] En[facility] [id number] 11/11 [facility] Encounter [id number] ADRIANA CERVANTES 11/14 [facility] En[facility] [id number] 11/15 [facility] OFF[facility] O/P EST MOD 30 MIN [id number] Diagnos is: ICD-10- CM G89.4 Chronic pain syndrom e LANDON MADSEN 11/16 [facility] En[facility] [id number] 11/16 [facility] En[facility] [id number] 12/05 [facility] En[facility] [id number] 12/05 [facility] CPAP FULL FACE MASK [id number] Diagnos is: ICD-10- CM G47.39 Other sleep apnea ANIKA CROW 12/06 [facility] En[facility] [id number] 12/06 [facility] En[facility] [id number] 12/21 [facility] En[facility] [id number] 12/26 [facility] En[facility] [id number] 01/02 [facility] OFFICE O/P EST LOW 20 MIN [id number] Diagnos is: ICD-10- CM F41.9 Anxiety disorde r, unspeci Pallavi Samayoa MD 01/02 [facility] OFF[facility] O/P EST LOW 20 MIN [id number] Diagnos is: ICD-10- CM I10 Essenti al (primar y) hyperte nsion D'ALESSAND ROMANA JAMISON 01/16 [facility] En[facility] [id number] 01/24 [facility] OFF[facility] O/P EST MOD 30 MIN [id number] Diagnos is: ICD-10- CM G89.4 Chronic pain syndrom e LANDON MADSEN S 01/25 [facility] Out[facility] Encounter [id number] 02/01 [facility]counter [id number] 02/02 [facility]counter [id number] 02/07 [facility]counter [id number] 02/07 [facility] Encounter [id number] 02/08 [facility] Encounter [id number] 02/08 [facility] Encounter [id number] Diagnos is: ICD-10- CM E87.5 Hyperka lemia EDWINLANDON OROZCO S 02/08 [facility] Encounter [id number] 02/10 [facility] Encounter [id number] 02/10 [facility]counter [id number] 02/10 [facility] Out[facility] Encounter [id number] 02/11 [facility] OFFICE O/P EST LOW 20 MIN [id number] Diagnos is: ICD-10- CM F41.9 Anxiety disorde r, unspeci Pallavi Samayoa MD 02/13 [facility] En[facility] [id number] 02/23 [facility]counter [id number] 02/24 [facility]counter [id number] 03/02 [facility] Out[facility] Encounter [id number] 03/04 [facility] OFFICE O/P EST MOD 30 MIN [id number] Diagnos is: ICD-10- CM I10 Essenti al (primar y) hyperte ROMANA Lawrence 03/06 [facility] Out[facility] Encounter [id number] 1.03/16 [facility] HC PRO PHONE CALL 5-10 MIN [id number] 1. Diagnos is: ICD-10- CM J44.9 Chronic obstruc tive pulmona ry disease , unspeci fied JARMOLOWIC Z,ROSALVA 03/16 [facility]counter [id number] 1.03/28 [facility] Out[facility] Encounter [id number] 1.03/30 [facility] QNHP OL DIG ASSMT&MGMT 5-10 [id number] 1. Diagnos is: ICD-10- CM G89.4 Chronic pain syndrom e TEP,SOPHOU S NEWMAN 03/30 [facility] Out[facility] Encounter [id number] 04/03 [facility] Out[facility]counter [id number] 04/05 [facility] Out[facility]counter [id number] 04/05 [facility] Out[facility] Encounter [id number] 04/06 [facility] Out[facility] Encounter [id number] Diagnos is: ICD-10- CM F41.9 Anxiety disorde r, unspeci Pallavi Samayoa MD 04/13 [facility] Encounter [id number] 04/13 [facility] OFFICE O/P EST MOD 30 MIN [id number] Diagnos is: ICD-10- CM I50.9 Heart failure , unspeci fiROMANA Dowling 04/13 [facility] OFF/OP EST MAY X REQ PHY/QHP [id number] Diagnos is: ICD-10- CM Z23 Encount er for immuniz TARYN Nuñez E 04/13 [facility]counter [id number] 04/14 [facility]counter [id number] 04/24 [facility]counter [id number] 05/03 [facility] Out[facility] Encounter [id number] 05/03 [facility] Encounter [id number] 05/09 [facility] Out[facility] Encounter [id number] 05/10 [facility] Out[facility] Encounter [id number] Diagnos is: ICD-10- CM G89.4 Chronic pain syndrom e LANDON MADSEN S 05/10 [facility] Out[facility] Encounter [id number] 05/10 [facility] OFFICE O/P EST LOW 20 MIN [id number] Diagnos is: ICD-10- CM F41.9 Anxiety disorde r, unspeci Pallavi Samayoa MD 05/15 [facility] Encounter [id number] 05/15 [facility] Out[facility] Encounter [id number] Diagnos is: ICD-10- CM G89.4 Chronic pain syndrom e LANDON MADSEN S 05/16 [facility] Out[facility] Encounter [id number] 05/19 [facility]counter [id number] [facility]counter [id number] 05/24 [facility] Out[facility] Encounter [id number] 05/24 [facility] OFF[facility] O/P EST HI 40 MIN [id number] Diagnos is: ICD-10- CM G89.4 Chronic pain syndrom e [place] OROZCO S 05/25 [facility] Out[facility] Encounter [id number] 05/30 [facility] Out[facility] Encounter [id number] 06/01 [facility] Out[facility] Encounter [id number] 06/15 [facility] Out[facility] Encounter [id number] 06/20 [facility] Out[facility] Encounter [id number] 06/28 [facility] HC PRO PHONE CALL 11-20 MIN [id number] 1. Diagnos is: ICD-10- CM F41.9 Anxiety disorde r, unspeci fied KEMIP ATRICIA A 07/07 [facility] Out[facility] Encounter [id number] 07/12 [facility] OFFICE O/P EST MOD 30 MIN [id number] Diagnos is: ICD-10- CM G89.4 Chronic pain syndrom e [place] OROZCO S 07/13 [facility] Out[facility] Encounter [id number] 07/24 [facility] Out[facility] Encounter [id number] 07/25 [facility] PH1 ASSMT&MGMT NQHP 11-20 [id number] Diagnos is: ICD-10- CM G89.4 Chronic pain syndrom e LANDON MADSEN S 07/27 [facility] OFFICE O/P EST HI 40 MIN [id number] Diagnos is: ICD-10- CM F41.9 Anxiety disorde r, unspeci Cass Whitaker 08/03 [facility] Out[facility] Encounter [id number] 08/17 [facility] Out[facility] Encounter [id number] 08/21 [facility] Out[facility] Encounter [id number] 09/06 [facility] OFFICE O/P EST HI 40 MIN [id number] Diagnos is: ICD-10- CM G89.4 Chronic pain syndrom e [place] OROZCO S 09/07 [facility] Outpatient Encounter [id number] 09/18 [facility] Social History Combined list of available smoking, tobacco, and other social history from Department of Defense and Veterans Affairs facilities. Social History Type Response Date Comment Source Tobacco smoking status [facility] FORMER USER 03/06/2024 [facility] History of tobacco use [facility] 15 YRS OR MORE 03/06/2024 [facility] History of tobacco use [facility] FORMER USER 03/31/2023 [facility] History of tobacco use [facility] NEVER USED 03/25/2022 [facility] History of tobacco use [facility] 03/19/2021 [facility] History of tobacco use [facility] USE DECLINED TO ANSWER 09/20/2018 [facility] History of tobacco use QUIT TOBACCO USE IN PAST YEAR 10/21/2017 [facility] History of tobacco use QUIT TOBACCO USE 1-7 YEARS AGO 12/30/2016 [facility] History of tobacco use QUIT TOBACCO USE 1-7 YEARS AGO 06/04/2016 [facility] History of tobacco use QUIT TOBACCO USE 1-7 YEARS AGO 05/17/2015 quit 2 years ago. [facility] History of tobacco use QUIT TOBACCO USE 1-7 YEARS AGO 06/07/2014 [facility] History of tobacco use QUIT TOBACCO USE IN PAST YEAR 11/30/2013 [facility] History of tobacco use QUIT TOBACCO USE IN PAST YEAR 05/22/2013 [facility] History of tobacco use QUIT TOBACCO USE IN PAST YEAR 12/01/2012 [facility] History [facility] tobacco use V1-PT DECLINES TOBACCO CESSATION MEDS 06/07/2012 [facility] History of tobacco use CURRENT SMOKER 01/05/2012 intermittenly [facility] History of tobacco use V1-PT DECLINES TOBACCO CESSATION MEDS 02/17/2011 [facility] History of tobacco use QUIT TOBACCO USE IN PAST YEAR 08/13/2010 [facility] tobacco use QUIT TOBACCO USE IN PAST YEAR 02/19/2010 [facility] History of tobacco use QUIT TOBACCO USE IN PAST YEAR 09/13/2009 [facility] History of tobacco use V1-PT DECLINES TOBACCO CESSATION MEDS 02/05/2009 [facility] History of tobacco use QUIT TOBACCO USE IN PAST YEAR 08/22/2008 [facility] History of tobacco use V1-PT DECLINES TOBACCO CESSATION MEDS 03/12/2008 [facility] History of tobacco use CURRENT SMOKER 03/08/2008 smokes one pack a da y for about 10 years ago. [facility] Plan of Care List of future care activities from Department of [facility] Affairs facilities. Additional future care activities may be listed in the Assessment and Plan section. Date/Time Care Activity Care Activity Detail Facili ty 09/28/2024 AMBULATORY - MEDICINE AMBULATORY - MEDICI NE [facility] 09/28/2024 AMBULATORY - PSYCHIATRY AMBULATORY - PSYC HIATRY [facility] 11/09/2024 AMBULATORY - MEDICINE AMBULATORY - MEDICI NE [facility] 09/07/2024 Consult Order ACTIVE MANAGEMEN T OF PAIN (OUTPT) Cons Database Support's Choice [facility]
--- OUTSIDE RECORDS SUMMARY | 2024-09-21 15:02 | XMS_ITS | Clinical Summary ---
Author Organization [facility] Address [address] [place] [address] Care Team Providers Care Section Leader Name Role Phone Evin Fan MD Primary Care Provider [phone] Allergies Active Allergy Reactions Criticality Noted Date [...] age to complete this topic Care Teams Section Leader Relationship Specialty Start Date End Date Evin Fan MD [address] [place] [address] [place] [id number] PCP - General Family Medicine 01/20/21
--- OUTSIDE RECORDS SUMMARY | 2024-09-21 15:02 | XMS_ITS | Clinical Summary ---
Author Organization [facility] Facility Address [address] [address] Care Team Providers Care Form Setter/Driver Name Role Phone Unavailable Primary Care Provider [...]
== END 2024-09-21 12:08 | disposition home or self-care (01) ==
LOC: HO.LAB 12:07
PROVIDERS: PCP Internal Medicine; Visit Provider Internal Medicine Hypertension Specialist
DX: R30.0 Dysuria (principal); N17.9 Acute kidney failure, unspecified; E87.5 Hyperkalemia; E87.3 Alkalosis; Z87.891 Personal history of nicotine dependence; Z79.899 Other long term (current) drug therapy
CPT/HCPCS: 87086; 99212

== ENCOUNTER 2024-09-27 18:52 | Inpatient (IN) | payer MEDICARE, MEDICAID, SELFPAY ==
--- NOTE | ~2024-09-27 | CT_ITS ---
CLINICAL HISTORY: Right axillary abscess and mass CT chest with contrast Comparison: Chest x-ray from 09/27/2024 Findings: Right axillary fluid collection and/or abscess measures 1.5 x 2.9 x 4.3 cm (image 75 of series 6). Adjacent inflammatory stranding and fluid may reflect combination of cellulitis and phlegmonous change. Small left pleural effusion. No pneumothorax mild bibasilar atelectasis/pneumonitis moderate emphysematous changes including anterior aspect of the right lung. Motion artifacts noted. Mild fat deposition of the imaged liver. Perinephric stranding with motion artifacts of the imaged abdomen. Vascular and valve calcifications are noted. Four point cm diameter and prominence of the main pulmonary artery as can be seen with pulmonary hypertension. Moderate cardiomegaly with multi chamber enlargement of the heart. 1.5 cm hemangioma of the T10 vertebral body nonaggressive sclerosis likely due to bone island in T9 vertebral body. Endplate sclerosis is multifocal. Mild vertebral height losses appear old/chronic. Degenerative changes include facet arthropathy. Mild deformity of the sternum and manubrium appear old IMPRESSION: 1. Abnormal fluid in the right axilla concerning for comminution of the abscess and adjacent cellulitis. 2. Mild bibasilar atelectasis/pneumonitis, with small left pleural effusion This document has been electronically signed by: Dino Jacob MD on 09/28/2024 00:32:22
--- NOTE | ~2024-09-27 | XR_ITS ---
CLINICAL HISTORY: shortness of breath 1 view chest x-ray Comparison: CR - XR CHEST 1V - 08/08/24 17:34 EST Findings: Patient is somewhat rotated to the left. Cardiac enlargement. Atherosclerotic vascular disease of aortic arch. Bilateral interstitial thickening and interstitial opacities. No consolidation, significant pleural effusion or pneumothorax. Osseous structures appear stable. IMPRESSION: 1. Findings suggestive of low-grade congestive heart failure. This document has been electronically signed by: Fabiola Blair MD on 09/27/2024 21:19:56
--- NOTE | ~2024-09-27 | US_ITS ---
CLINICAL HISTORY: Right axillary abscess Ultrasound right axilla Comparison: None Findings: A 1 cm x 1 cm x 1 cm complex hypoechoic fluid collection demonstrated with no internal blood flow. Impression: Findings consistent with 1 cm right axillary abscess. This document has been electronically signed by: Fabiola Blair MD on 09/27/2024 23:02:10
[2024-09-27 19:00] VITALS: BP 151/65; BP 154/70; PULSE 101; PULSE 90; RESP 26; TEMP 37.2; O2SAT 100; O2SAT 99; BMI 53.2
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
[2024-09-27 19:18] VITALS: PULSE 94; RESP 18; O2SAT 93
--- NOTE | 2024-09-27 19:24 | ECG_ITS ---
Test Reason : SHORTNESS OF BREATH Blood Pressure : */* mmHG Vent. Rate : 91 BPM Atrial Rate : 91 BPM P-R Int : 156 ms QRS Dur : 90 ms QT Int : 350 ms P-R-T Axes : 74 49 63 degrees QTcB Int : 430 ms Normal sinus rhythm Normal ECG When compared with ECG of 01-Jun-2024 17:25, Vent. rate has increased by 31 bpm Referred By: Branden Monge Electronically Signed By: CHANO BENAVIDES MD
[2024-09-27] MEDS: Albuterol Sulfate 5 MG, Albuterol Sulfate (0.083%) 2.5 MG 7.5 MG INHALE (19:51)
[2024-09-27 19:53] VITALS: PULSE 86; RESP 18; O2SAT 91
--- NOTE | 2024-09-27 20:15 | PC.NURSE ---
Addendum entered by Ton Molina RN 09/27/24 20:25: SpO2 maintaining 88-92% Original Note: pt on bipap 12/03 40%. behavior calm, appears drowsy but arouses spontaneously, answers questions in complete, clear sentences. reattempting lab draws.
[2024-09-27 20:29] LABS: MANUAL DIFF FLAG NO
[2024-09-27 20:30] LABS: Basophils Absolute Auto 0.1 X10*3/uL (0.0-0.2); Basophils Percent Auto 0.4 % (0-2); Eosinophils Absolute Auto 0.2 X10*3/uL (0.0-0.4); Eosinophils Percent Auto 1.4 % (0-4); Hematocrit 35.8 % (37.0-47.0); Hemoglobin 10.2 g/dl (12.0-16.0); Imm Gran Abs Auto 0.18 X10*3/uL (0.00-0.03); Imm Gran Pct Auto 1.3 % (0.0-0.4); Lymphocytes Absolute Auto 0.8 X10*3/uL (1.2-4.9); Lymphocytes Percent Auto 5.5 % (20-40); Mean Corpuscular HGB Conc 28.5 g/dl (31.0-35.0); Mean Corpuscular Hemoglobin 24.8 pg (27.0-33.0); Mean Corpuscular Volume 86.9 fL (80.0-98.0); Mean Platelet Volume 10.1 fL (9.4-12.3); Monocytes Absolute Auto 1.1 X10*3/uL (0.1-1.2); NRBC Pct Auto 0.1 /100WBC (0.0-0.2); Neutrophils Absolute Auto 11.5 x10*3/uL (2.0-8.3); Neutrophils Percent Auto 83.4 % (45-73); Platelet Count 222 X10*3/uL (160-400); Red Blood Count 4.12 X10*6/uL (4.20-5.50); Red Cell Distribution Width 15.4 % (11.0-16.0); White Blood Count 13.8 X10*3/uL (4.8-10.8)
[2024-09-27 20:33] LABS: Venous Blood Gas Refer to POC result
[2024-09-27 20:35] LABS: VBG Base Excess 12.6 mmol/L; VBG HCO3 33 mmol/L (22-26); VBG pCO2 30 mmHg; VBG pH 7.65 (7.32-7.43); VBG pO2 108 mmHg
[2024-09-27 20:46] LABS: Alanine Aminotransferase < 6 U/L (0-31); Albumin Level 3.7 g/dL (3.5-5.0); Alkaline Phosphatase 119 U/L (39-117); Anion Gap 18 (12-20); Aspartate Amino Transferase 22 U/L (5-31); Bilirubin Direct < 0.2 mg/dL (0.0-0.5); Bilirubin Total 0.2 mg/dL (0.0-1.0); Blood Urea Nitrogen 22 mg/dL (9-16); C Reactive Protein 11.49 mg/dL (< or = 0.50); Calcium 9.2 mg/dL (8.4-10.2); Carbon Dioxide 28 mmol/L (22-29); Chloride 104 mmol/L (96-108); Estimated Glomerular Filt Rate 51; Ethanol < 10 mg/dL; Glucose Random 111 mg/dL (60-115); Lactic Acid 1.3 mmol/L (0.5-2.0); Magnesium 2.5 mg/dL (1.6-2.6); Potassium 5.1 mmol/L (3.3-5.1); Sodium 145 mmol/L (135-145); Total Protein 8.1 g/dL (6.5-8.0)
[2024-09-27 20:48] LABS: Prothrombin Time 11.2 SEC (10.9-12.4)
[2024-09-27 20:51] LABS: B Type Natriuretic Peptide 143 pg/mL (<100)
[2024-09-27 20:52] LABS: Troponin-I High Sensitivity 19.9 ng/L (<3.5-17.0)
[2024-09-27] MEDS: Piperacillin Sodium/Tazobactam 4.5 GM in 0.9 % Sodium Chloride 100 ML IV (21:27)
[2024-09-27 21:28] VITALS: TEMP 37.7
[2024-09-27] MEDS: vancomycin/NS 2,000 MG/500 ML PLAST..BAG 250 MG IV (21:41)
--- NOTE | 2024-09-27 21:45 | PC.NURSE ---
ABX runninng. pt remains stable on BiPAP. axilla US complete. call chavez in reach
[2024-09-27] MEDS: iohexoL 350 MG/ML 100 ML INFUS..BTL 75 ML IV (23:57)
[2024-09-28] VITALS (28 sets, daily range): BP systolic 102–160; BP diastolic 41–70; PULSE 73–110; RESP 14–38; TEMP 36.1–37.1; O2SAT 40–95; BMI 52.4
--- NOTE | 2024-09-28 00:04 | PC.NURSE ---
back from CT. stable on NRB during scan. back on BiPAP. pt states she feels ok. still drowsy but arousable and answers questions appropriately. call chavez in reach
[2024-09-28] MEDS: methylPREDNISolone Sod Succ 125 MG/2 ML VIAL 80 MG IVPUSH (00:33)
[2024-09-28] MEDS: Furosemide 100 MG/10 ML VIAL 80 MG IVPUSH (00:36)
--- NOTE | 2024-09-28 00:55 | PC.NURSE ---
Addendum entered by Ton Molina RN 09/28/24 00:58: also no crackles auscultated Original Note: about 15-20 mins after return from CT, pt became more dyspniec with arms on bedrails and accessory muscle use while still on BiPAP. no wheezing. maintained SpO2 >88% on 18/8 40%. MD Monge at bedside. gave lasix and solumedrol. at 0057, pt still dyspneic. checking bladder scan now.
[2024-09-28] MEDS: HYDROmorphone HCl 0.5 MG/0.5 ML SYRINGE IVPUSH (01:31)
--- NOTE | 2024-09-28 01:36 | PM.CCN ---
Critical Care Event Note Summary Date of Service: 09/28/24 Code activated: No Narrative: This case had a high probability of a clinically significant, sudden, or life threatening deterioration of this patient's condition which required my full and direct attention, intervention and personal management. Critical Care Time (minutes): 30
[2024-09-28 01:39] LABS: Influenza A PCR NEGATIVE (Negative); Influenza B PCR NEGATIVE (Negative); Resp Syncy Virus RNA Qual PCR NEGATIVE (Negative); SARS COV2 PCR INHOUSE NEGATIVE (Negative)
--- NOTE | 2024-09-28 01:40 | P.CONCC_ITS ---
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 ?Patient presents to us via consult from the emergency room where she was seen this evening due to complaints of right axillary mass and discomfort. ?Patient reports having increased pain and discomfort over right axilla in the last 3-4 days.? She has been taking an antibiotic prescribed on an urgent care clinic (cephalexin) however no drainage was done at the time.? Her ER workup reveals a normotensive patient with a heart rate of 101, temperature 99 degrees F, respiratory rate of 26 and pulse ox 100% on non- rebreather mask on arrival subsequently placed on BiPAP per her home settings. ?Her ER workup reveals a white count of 13.8, H and H of 10 and 35 respectively, platelets of 222.? Her initial venous gas pH of 7.6, pCO2 of 30, PO2 of 108, HC03 of 33. ?Sodium 145, potassium 5.1, chloride 104, carbon dioxide 28, anion gap 18, BUN 22, creatinine 1.09, lactic acid 1.3.? Alk-phos 119, troponin 19.9, CRP 11.49, BNP 143.? Respiratory panel negative. ?Initial x-ray shows findings suggestive with mild congestive heart failure. ?She had an ultrasound of the axilla further worked up with a CT chest with contrast which shows an abnormal fluid collection in the right axillary area measuring 1.5 x 2.9 x 4.3 cm. Currently the patient denies any fever, has been applying some warm compresses to the area but no purulent material has been expressed out of it.? Her current pain level is 6/10, localized without any discomfort but she also states that she feels anxious because she takes Dilaudid 1 mg 4 times per day at home and she has not received any pain medications while in the ER. ?In addition she denies any more shortness of breath unusual, no chest pain, cough, sputum production, no increased swelling of her legs. PMFSH Past Medical History Medical History VERN (acute kidney injury) COPD (chronic obstructive pulmonary disease) Enterococcus faecalis infection MSSA (methicillin susceptible Staphylococcus aureus) MRSA (methicillin resistant staph aureus) culture positive Encounter for management of wound VAC Chronic osteomyelitis Hypertension Iron deficiency anemia COPD (chronic obstructive pulmonary disease) Femur fracture Crohn's colitis Morbid obesity due to excess calories Closed tibia fracture Acute on chronic respiratory failure with hypoxia and hypercapnia Nonrheumatic mitral (valve) stenosis Paroxysmal atrial fibrillation Dyspnea Hypoventilation associated with obesity Pickwickian syndrome Chronic hypercapnic respiratory failure Opioid use disorder Patient : No Family History Family History Other Adopted Surgical History Surgical History Hx of cholecystectomy History of open reduction and internal fixation (ORIF) procedure Status post open reduction and internal fixation (ORIF) of fracture Recent surgical procedure on lower extremity Social History Social History Household Members: Family Household Members Other:: , [place]. Daughter Carolyn, 21. Daughter's Boyfriend, 22. Neice, 21 Housing: House Do you presently have visiting nurse or other home services: Yes Alcohol intake: never Patient Tobacco Use Status: Former Tobacco user Years Smoked: 25 Smoked in Last 30 Days: No e-Cigarette/Vaping Use: Never Used Second Hand Smoke Exposure: No Use of substances other than those prescribed or required for medical reasons: No Advance Directives: Yes Advance Directives on File: Yes Advance Directives Date on File: 12/16/20 Patient : No service: Yes Current occupational status: disabled Cognitive needs: No Hearing needs: No Vision needs: Yes Meds Allergies Allergy/AdvReac Type Severity Reaction Status Date / Time gabapentin Allergy Mild Anxiety Verified 09/27/24 19:09 morphine [MORPHINE] Allergy Unknown ANAPHALAXIS, Verified 09/27/24 19:09 anaphylaxis propofol [From Diprivan] Allergy Anaphylaxis Verified 09/27/24 19:09 Home Medications ?Medication ?Instructions ?Recorded ?Confirmed ?Last Taken ?Type theophylline 400 mg 400 mg PO DAILY 01/18/23 09/21/2424 History capsule,extended release 24 hr (Orque-24) fluticasone fur. 100 mcg-umeclid 1 ea inhalation DAILY 04/24/24 09/21/24 04/24/24 History 62.5 mcg-vilant 25 mcg inhalat.powder (Trelegy Ellipta) buprenorphine HCl 2 mg sublingual 4 mg sublingual QID PRN Pain 05/21/24 09/21/24 05/20/24 History tablet cholecalciferol (vitamin D3) 50 50 mcg PO DAILY 05/21/24 09/21/24 Unknown History mcg (2,000 unit) tablet clonazepam 0.5 mg tablet 0.5 mg PO BID PRN Anxiety 05/21/24 09/21/24 Unknown History temazepam 30 mg capsule 30 mg PO BEDTIME 05/21/24 09/21/24 Unknown History Physical Exam 2 Vital Signs: Vital Signs: Last Vital Signs Temp 99.9 F 09/27/24 21:28 Pulse 109 H 09/28/24 01:03 Resp 22 H 09/28/24 01:31 BP 160/70 H 09/28/24 01:03 Pulse Ox 90 L 09/28/24 01:03 O2 Del Method BiPAP 09/28/24 01:03 FiO2 40 09/28/24 01:03 BMI result Body Mass Index 53.2 VS: ?160/70, 109, 22, 90% on BiPAP 12/03 ?FiO2 40% satting 92% General:? Alert oriented x3 no acute distress.? Anxious, there is no accessory muscle usage.? A significant work of breathing. ?Speaking full sentences.? Speech is well articulated, thought process is coherent.? Following all commands. Skin: ?Right axillary abscess like formation with surrounding erythema.? Mild tenderness.? No hardness to touch.? Bilateral lower extremities as described below. HEENT:? Head is normocephalic, atraumatic, pupils equal round reactive to light. Buccal mucosa is dry. Neck is supple without lymphadenopathy. Cardiac:? Clear S1-S2, 102 beats per minute, no murmurs, rubs, gallops. Pulmonary:? Minor bibasilar crackling left more than right.? No rhonchi, no wheezes. Abdomen:? Protuberant, positive bowel sounds in all 4 quadrants.? Soft, nontender, no rebound or guarding.? Musculoskeletal:? Moving all 4 extremities upon request a major joints, there is no crepitus or tenderness.? The strength is 5/5 bilaterally and throughout all 4 extremities.? Hyperpigmented skin changes of the bilateral lower extremities with maceration and discoloration consistent with stasis dermatitis and nonpitting edema up to mid tibia.? No open sores. ? Neurologic:? As above, no focal deficits.? Vascular:? 2+ pulses upper extremities. ?Unable to palpate lower extremity pulses.? No discoloration no cyanosis. Results Labs 09/27/24 20:24 09/27/24 20:24 Labs: Short CBC 09/27/24 Range/Units 20:24 WBC 13.8 H (4.8-10.8) X10*3/uL Hgb 10.2 L (12.0-16.0) g/dl Hct 35.8 L (37.0-47.0) % Plt Count 222 (160-400) X10*3/uL BMP 09/27/24 20:24 Sodium 145 Potassium 5.1 Chloride 104 Carbon Dioxide 28 BUN 22 H Creatinine 1.09 Calcium 9.2 Liver Function 09/27/24 Range/Units 20:24 Total Bilirubin 0.2 (0.0-1.0) mg/dL Direct Bilirubin < 0.2 (0.0-0.5) mg/dL AST 22 (5-31) U/L ALT < 6 (0-31) U/L Alkaline Phosphatase 119 H (39-117) U/L Albumin 3.7 (3.5-5.0) g/dL Assessment and Plan (1) Cellulitis of axilla: Status: Acute Plan ASSESSMENT : 1. Acute axillary cellulitis with underlying abscess; no evidence of sepsis 2. Minimal respiratory distress due to chronic mixed disorder of COPD and CHF without acute exacerbation 3. Underlying anxiety due to deprivation of opioids 4. Opioid dependence 5. Chronic lower extremity edema and stasis dermatitis 6. Reactive leukocytosis 7. My bibasilar atelectasis/pneumonitis with small left pleural effusions unlikely to represent a bacterial pneumonia given lack of symptomatology (no cough, no sputum production and no fever) 8. Chronic normocytic anemia 9. Acute respiratory alkalosis likely due to hyperventilation as her oxygen levels are within her baseline limits PLAN OF CARE: As above-mentioned the patient was fully evaluated by me, at this point I do not think the patient is septic, nor is she in shock.? From the respiratory standpoint, the patient does not have significant work of breathing, accessory muscle usage and does not show evidence of respiratory failure.? Her anxiety is related to the lack of opioids.? I have ordered 0.5 mg of Dilaudid IV and may further recommendations to the ER physician.? In addition I have suggested to titrate the FiO2 of her BiPAP to a goal O2 sat of 90% to avoid oxygen poisoning and iatrogenic hypercarbia. To ensure that the patient does not need any intensive care and that the patient can easily transitioned to the medical floor, I have requested an ABG. If normal, the patient can be treated in the Internal Medicine Services with broad spectrum antibiotics. Surgical consult in the morning for I and D, DuoNebs, diuretics per their discretion; she did receive 80 mg of Lasix IV with good effect as the patient seems to be diuresing well. ?Continue with opioids for work of breathing and pain. If the patient's ABG shows decompensation or the patient becomes hemodynamically unstable despite adequate medical intervention, we will reconsider admission to the ICU.? This was discussed in detail with the patient's ER physician Dr. Branden Mnoge Thank you for involving us in the care of this patient, if you have any further questions, do not hesitate to call us. Critical care time used for critical evaluation of this patient, diagnosis, treatment and coordination of care, review her records and documentation TOTAL CRITICAL CARE TIME 75??MIN . discussion and coordination with consultants, completely separate from any procedures performed Patient's care was discussed in detail with Dr. Keenan who is aware of all the above as well as the plan of care for this patient.
--- NOTE | 2024-09-28 02:04 | PC.NURSE ---
pt keeps asking to remove mask and to drink water. also keeps asking to walk to bathroom. education provided on exertion/dyspnea/oxygen demand. pt understanding. call chavez in reach. WOB improved after 0.5mg IV hydromorphone. continues to arouse spontaneously and answer questions appropriately
[2024-09-28 02:49] LABS: ABG Refer to POC result
[2024-09-28 02:53] LABS: ABG HCO3 52 mmol/L (22-26); ABG pCO2 88 mmHg (32-45); ABG pH 7.38 (7.35-7.45); ABG pO2 63 mmHg (83-108)
--- NOTE | 2024-09-28 03:06 | P.HPCC_ITS ---
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 ?Patient presents to us via consult from the emergency room where she was seen this evening due to complaints of right axillary mass and discomfort. ?Patient reports having increased pain and discomfort over right axilla in the last 3-4 days.? She has been taking an antibiotic prescribed on an urgent care clinic (cephalexin) however no drainage was done at the time.? Her ER workup reveals a normotensive patient with a heart rate of 101, temperature 99 degrees F, respiratory rate of 26 and pulse ox 100% on non- rebreather mask on arrival subsequently placed on BiPAP per her home settings. ?Her ER workup reveals a white count of 13.8, H and H of 10 and 35 respectively, platelets of 222.? Her initial venous gas pH of 7.6, pCO2 of 30, PO2 of 108, HC03 of 33. ?Sodium 145, potassium 5.1, chloride 104, carbon dioxide 28, anion gap 18, BUN 22, creatinine 1.09, lactic acid 1.3.? Alk-phos 119, troponin 19.9, CRP 11.49, BNP 143.? Respiratory panel negative. ?Initial x-ray shows findings suggestive with mild congestive heart failure. ?She had an ultrasound of the axilla further worked up with a CT chest with contrast which shows an abnormal fluid collection in the right axillary area measuring 1.5 x 2.9 x 4.3 cm. It is reported that soon after coming back from CT, the patient deteriorated. The patient had been placed on full volume non-rebreather mask to have this study. Currently the patient denies any fever, has been applying some warm compresses to the area but no purulent material has been expressed out of it.? Her current pain level is 6/10, localized without any discomfort but she also states that she feels anxious because she takes Dilaudid 1 mg 4 times per day at home and she has not received any pain medications while in the ER. ?In addition she denies any more shortness of breath unusual, no chest pain, cough, sputum production, no increased swelling of her legs. ?I requested an ABG for further diagnosis.? This shows a pH of 7.38, pCO2 of 88, PaO2 of 63. ?Given risk of further decompensation, patient will be admitted to the ICU. I believe her hypercarbia resulted from iatrogenic oxygen poisoning as the patient was placed on non-rebreather air with full volume while she went to have the CT. <MONTSE Sheth - Last Filed: 09/28/24 19:56> [facility] Past Medical History Medical History: Medical History VERN (acute kidney injury) COPD (chronic obstructive pulmonary disease) Enterococcus faecalis infection MSSA (methicillin susceptible Staphylococcus aureus) MRSA (methicillin resistant staph aureus) culture positive Encounter for management of wound VAC Chronic osteomyelitis Hypertension Iron deficiency anemia COPD (chronic obstructive pulmonary disease) Femur fracture Crohn's colitis Morbid obesity due to excess calories Closed tibia fracture Acute on chronic respiratory failure with hypoxia and hypercapnia Nonrheumatic mitral (valve) stenosis Paroxysmal atrial fibrillation Dyspnea Hypoventilation associated with obesity Pickwickian syndrome Chronic hypercapnic respiratory failure Opioid use disorder <MONTSE Sheth - Last Filed: 09/28/24 19:56> Family History Family History: Family History Other Adopted <MONTSE Sheth - Last Filed: 09/28/24 19:56> Surgical History Surgical History: Surgical History Hx of cholecystectomy History of open reduction and internal fixation (ORIF) procedure Status post open reduction and internal fixation (ORIF) of fracture Recent surgical procedure on lower extremity <MONTSE Sheth - Last Filed: 09/28/24 19:56> Social History Social History: Social History Household Members: Spouse and Children Household Members Other:: , Hoa. Daughter Carolyn, 21. Daughter's Boyfriend, 22. Neice, 21 Housing: House Do you presently have visiting nurse or other home services: Yes (wound care) Alcohol intake: never Patient Tobacco Use Status: Former Tobacco user Years Smoked: 25 Smoked in Last 30 Days: No e-Cigarette/Vaping Use: Never Used Second Hand Smoke Exposure: No Use of substances other than those prescribed or required for medical reasons: No Currently Displaying Signs/Symptoms of Drug Intoxication Withdrawal: No Have you been hit, kicked, punched, or otherwise hurt by someone within the past year? If so, by whom?: No Do you feel safe in your current relationship?: Yes Is there a partner from a previous relationship who is making you feel unsafe now?: No Are you made to feel afraid or neglected: No [facility] Healthcare Practices: Advance Directives: Yes Advance Directives on File: Yes Advance Directives Date on File: 12/16/20 Do you have a plan to hurt others: No Plan Recently lost weight without trying: No Nutrition Risks: No Nutritional Risk Patient : No : No Poor oral hygiene: Yes service: No Current occupational status: disabled Cognitive needs: No Hearing needs: No Vision needs: Yes <MONTSE Sheth - Last Filed: 09/28/24 19:56> Meds Allergies/Adverse reactions: Allergies Allergy/AdvReac Type Severity Reaction Status Date / Time gabapentin Allergy Mild Anxiety Verified 09/27/24 19:09 morphine [MORPHINE] Allergy Unknown ANAPHALAXIS, Verified 09/27/24 19:09 anaphylaxis propofol [From Diprivan] Allergy Anaphylaxis Verified 09/27/24 19:09 <MONTSE Sheth - Last Filed: 09/28/24 19:56> Active Medications: Current Medications Heparin Sodium (Porcine) (Heparin Sodium,Porcine 5,000 Unit/Ml Vial) 5,000 unit SUBCUT Q8H BEN <MONTSE Sheth - Last Filed: 09/28/24 19:56> Home medications: Home Medications ?Medication ?Instructions ?Recorded ?Confirmed ?Last Taken ?Type theophylline 400 mg 400 mg PO DAILY 01/18/23 09/28/24 09/27/24 History capsule,extended release 24 hr (Roque-24) fluticasone fur. 100 mcg-umeclid 1 ea inhalation DAILY 04/24/24 09/28/24 09/27/24 History 62.5 mcg-vilant 25 mcg inhalat.powder (Trelegy Ellipta) cholecalciferol (vitamin D3) 50 50 mcg PO DAILY 05/21/24 09/28/24 09/27/24 History mcg (2,000 unit) tablet clonazepam 0.5 mg tablet 0.5 mg PO BID PRN Anxiety 05/21/24 09/28/24 Unknown History temazepam 30 mg capsule 30 mg PO BEDTIME PRN Sleep 05/21/24 09/28/24 09/27/24 History acetaminophen 500 mg tablet 1,000 mg PO TID PRN Pain 09/28/24 09/28/24 Unknown History cephalexin 500 mg capsule 500 mg PO QID 09/28/24 Unknown History clonazepam 1 mg tablet 1 mg PO DAILY 09/28/24 09/28/24 09/27/24 History meloxicam 15 mg tablet 15 mg PO DAILY 09/28/24 09/28/24 09/27/24 History omeprazole 20 mg tablet,delayed 20 mg PO DAILY@0630 09/28/24 09/28/24 09/27/24 History release oxycodone 5 mg tablet 10 mg PO 5XD 09/28/24 09/28/24 09/27/24 History <MONTSE Sheth - Last Filed: 09/28/24 19:56> Physical Exam 2 Vital Signs: Vital Signs: Last Vital Signs Temp 97.7 F 09/28/24 01:53 Pulse 109 H 09/28/24 01:03 Resp 22 H 09/28/24 01:31 BP 160/70 H 09/28/24 01:03 Pulse Ox 90 L 09/28/24 01:03 O2 Del Method BiPAP 09/28/24 01:03 FiO2 40 09/28/24 01:03 BMI result Body Mass Index 53.2 <MONTSE Sheth - Last Filed: 09/28/24 19:56> General:? Alert oriented x3 no acute distress.? Anxious, there is no accessory muscle usage.? A significant work of breathing. ?Speaking full sentences.? Speech is well articulated, thought process is coherent.? Following all commands. Skin: ?Right axillary abscess like formation with surrounding erythema.? Mild tenderness.? No hardness to touch.? Bilateral lower extremities as described below. HEENT:? Head is normocephalic, atraumatic, pupils equal round reactive to light. Buccal mucosa is dry. Neck is supple without lymphadenopathy. Cardiac:? Clear S1-S2, 102 beats per minute, no murmurs, rubs, gallops. Pulmonary:? Minor bibasilar crackling left more than right.? No rhonchi, no wheezes. Abdomen:? Protuberant, positive bowel sounds in all 4 quadrants.? Soft, nontender, no rebound or guarding.? Musculoskeletal:? Moving all 4 extremities upon request a major joints, there is no crepitus or tenderness.? The strength is 5/5 bilaterally and throughout all 4 extremities.? Hyperpigmented skin changes of the bilateral lower extremities with maceration and discoloration consistent with stasis dermatitis and nonpitting edema up to mid tibia.? No open sores. ? Neurologic:? As above, no focal deficits.? Vascular:? 2+ pulses upper extremities. ?Unable to palpate lower extremity pulses.? No discoloration no cyanosis. <MONTSE Sheth - Last Filed: 09/28/24 19:56> Results Labs CBC and Chem 7: 09/28/24 05:45 09/28/24 05:45 <MONTSE Sheth - Last Filed: 09/28/24 19:56> Labs: Laboratory Results - last 24 hr 09/27/24 09/27/24 09/27/24 20:24 20:29 20:30 MCV 86.9 MCH 24.8 L MCHC 28.5 L RDW 15.4 Plt Count 222 MPV 10.1 Immature Gran % (Auto) 1.3 H Neut % (Auto) 83.4 H Lymph % (Auto) 5.5 L [place] % (Auto) 8.0 Eos % (Auto) 1.4 Baso % (Auto) 0.4 Lymph # (Auto) 0.8 L [place] # (Auto) 1.1 Eos # (Auto) 0.2 Baso # (Auto) 0.1 Abs Immat Gran (auto) 0.18 H Absolute Neuts (auto) 11.5 H Absolute Nucleated RBC 0.020 H Nucleated RBC % (auto) 0.1 PT 11.2 INR 1.0 O2 Saturation ABG pH at Pt Temp ABG pCO2 at Pt Temp ABG pO2 at Pt Temp ABG HCO3 ABG Base Excess (Actual) VBG pH 7.65 H* VBG pCO2 30 VBG pO2 108 VBG HCO3 33 H VBG O2 Saturation 99.0 VBG Base Excess 12.6 Anion Gap 18 Estim Creat Clear Calc 69.0 Estimated GFR 51 Random Glucose 111 Lactic Acid 1.3 Calcium 9.2 Magnesium 2.5 Total Bilirubin 0.2 Direct Bilirubin < 0.2 AST 22 ALT < 6 Alkaline Phosphatase 119 H C-Reactive Protein 11.49 H B-Natriuretic Peptide 143 H Total Protein 8.1 H Albumin 3.7 Ethyl Alcohol < 10 Influenza Type A (PCR) Influenza Type B (PCR) RSV RNA Qual (PCR) SARS-CoV-2 RNA (RT-PCR) 09/28/24 09/28/24 00:54 02:48 MCV MCH MCHC RDW Plt Count MPV Immature Gran % (Auto) Neut % (Auto) Lymph % (Auto) [place] % (Auto) Eos % (Auto) Baso % (Auto) Lymph # (Auto) [place] # (Auto) Eos # (Auto) Baso # (Auto) Abs Immat Gran (auto) Absolute Neuts (auto) Absolute Nucleated RBC Nucleated RBC % (auto) PT INR O2 Saturation 91.0 ABG pH at Pt Temp 7.38 ABG pCO2 at Pt Temp 88 H* ABG pO2 at Pt Temp 63 L ABG HCO3 52 H ABG Base Excess (Actual) 24.0 VBG pH VBG pCO2 VBG pO2 VBG HCO3 VBG O2 Saturation VBG Base Excess Anion Gap Estim Creat Clear Calc Estimated GFR Random Glucose Lactic Acid Calcium Magnesium Total Bilirubin Direct Bilirubin AST ALT Alkaline Phosphatase C-Reactive Protein B-Natriuretic Peptide Total Protein Albumin Ethyl Alcohol Influenza Type A (PCR) NEGATIVE Influenza Type B (PCR) NEGATIVE RSV RNA Qual (PCR) NEGATIVE SARS-CoV-2 RNA (RT-PCR) NEGATIVE <MONTSE Sheth - Last Filed: 09/28/24 19:56> Assessment and Plan (1) Acute respiratory failure with hypercapnia: Status: Acute <MONTSE Sheth - Last Filed: 09/28/24 19:56> 1.Acute axillary cellulitis with underlying abscess; no evidence of sepsis 2. ?Acute hypercarbic respiratory failure likely multifactorial in the setting of CHF and COPD exacerbation 3. Underlying anxiety due to deprivation of opioids 4. Opioid dependence 5. Chronic lower extremity edema and stasis dermatitis 6. Reactive leukocytosis 7. My bibasilar atelectasis/pneumonitis with small left pleural effusions unlikely to represent a bacterial pneumonia given lack of symptomatology (no cough, no sputum production and no fever) 8. Chronic normocytic anemia 9. Acute mixed respiratory and metabolic alkalosis 10. Hx Severe pulm HTN PLAN OF CARE: We initially consulted on the patient, I requested an ABG and upon receiving the results as above noted, the patient will be admitted to the ICU, monitor vital signs, I's and O's, continue with diuresis.? Patient may benefit from sildenafil and pulmonary rehab. DuoNebs and albuterol p.r.n. steroids. We will continue with vancomycin and Zosyn pending culture of the I and D which will happen in the ER prior to coming to the ICU.? If necessary surgical consult can be requested in the morning as there is mentioned of a phlegmon on the CT. Continue with p.r.n. pain control, Iftikhar wraps lower extremities, repeat laboratories in the morning. I do not think the patient is septic. Review of her echo from 04/25/2024 reports a normal ejection fraction of 60-65%. No valvular abnormality. Severe pulmonary hypertension. We will repeat the echo to evaluate for any changes of her EF, diastolic dysfunction. We will also repeat troponin in the morning. GI prophylaxis:? IV ppi DVT prophylaxis: ?Heparin every 8 hours. ? Critical care time used for critical evaluation of this patient, diagnosis, treatment and coordination of care, review her records and documentation TOTAL CRITICAL CARE TIME 90??MIN . discussion and coordination with consultants, completely separate from any procedures performed Patient's care was discussed in detail with Dr. Keenan who is aware of all the above as well as the plan of care for this patient. <MONTSE Sheth - Last Filed: 09/28/24 19:56> 1.Acute axillary cellulitis with underlying abscess; no evidence of sepsis 2. ?Acute hypercarbic respiratory failure likely multifactorial in the setting of CHF and COPD exacerbation 3. Underlying anxiety due to deprivation of opioids 4. Opioid dependence 5. Chronic lower extremity edema and stasis dermatitis 6. Reactive leukocytosis 7. My bibasilar atelectasis/pneumonitis with small left pleural effusions unlikely to represent a bacterial pneumonia given lack of symptomatology (no cough, no sputum production and no fever) 8. Chronic normocytic anemia 9. Acute mixed respiratory and metabolic alkalosis 10. Hx Severe pulm HTN PLAN OF CARE: We initially consulted on the patient, I requested an ABG and upon receiving the results as above noted, the patient will be admitted to the ICU, monitor vital signs, I's and O's, continue with diuresis.? Patient may benefit from sildenafil and pulmonary rehab.Will start the patient on DuoNebs and albuterol p.r.n. and systemicsteroids. Continue BIPAP support while sleeping and nasal canula oxygen while awake which is her baseline. We will continue with vancomycin and Zosyn pending culture of the I and D.? If necessary surgical consult can be requested in the morning as there is mentioned of a phlegmon on the CT. Continue with p.r.n. pain control, Iftikhar wraps lower extremities, repeat laboratories in the morning. I do not think the patient is septic. Review of her echo from 04/25/2024 reports a normal ejection fraction of 60-65%. No valvular abnormality. Severe pulmonary hypertension. We will repeat the echo to evaluate for any changes of her EF, diastolic dysfunction. We will also repeat troponin in the morning. oral feeds Patient has a CKD, with her most recent creatinine prior to hospitalization was 1.1, this admission its 1.2 possibly ALEKSEY/ obesity related. GI prophylaxis:? IV ppi DVT prophylaxis: ?Heparin every 8 hours. ? Critical care time used for critical evaluation of this patient, diagnosis, treatment and coordination of care, review her records and documentation TOTAL CRITICAL CARE TIME 50??MIN . discussion and coordination with consultants, completely separate from any procedures performed Patient's care was discussed in detail with Dr. Keenan who is aware of all the above as well as the plan of care for this patient. <Antonio Keenan MD - Last Filed: 09/28/24 10:29>
[2024-09-28] MEDS: Lidocaine HCl 1 % MPF 5 ML VIAL INFILTRATI (03:20)
[2024-09-28] MEDS: Heparin Sodium,Porcine 5,000 UNIT/ML VIAL 5000 UNIT SUBCUT ×3 (03:41→18:29)
[2024-09-28 03:44] LABS: Phosphorus 4.8 mg/dL (2.7-4.5)
[2024-09-28] MEDS: Albuterol/Iprat 2.5/0.5MG 3 ML AMPUL.NEB INHALE ×4 (03:48→21:50)
[2024-09-28] MEDS: Pantoprazole Sodium 40 MG/10 ML VIAL IVPUSH (04:11)
[2024-09-28] MEDS: Piperacillin Sodium/Tazobactam 3.375 GM in 0.9 % Sodium Chloride 50 ML IV ×4 (04:11→22:30)
--- NOTE | 2024-09-28 04:14 | PC.NURSE ---
ABG resulted. BiPAP changed to 25/5 40%. stable at 90% SpO2. pt more lethargic but arouses to shaking and can answer questions. report given to Steven ALEJANDRE in ICU
[2024-09-28 05:57] LABS: Venous Blood Gas Refer to POC result
[2024-09-28 06:00] LABS: Basophils Percent Auto 0.3 % (0-2); Eosinophils Percent Auto 0.2 % (0-4); Hematocrit 29.5 % (37.0-47.0); Hemoglobin 8.5 g/dl (12.0-16.0); Imm Gran Abs Auto 0.08 X10*3/uL (0.00-0.03); Imm Gran Pct Auto 0.6 % (0.0-0.4); Lymphocytes Absolute Auto 0.3 X10*3/uL (1.2-4.9); Lymphocytes Percent Auto 2.1 % (20-40); MANUAL DIFF FLAG SCAN; Mean Corpuscular HGB Conc 28.8 g/dl (31.0-35.0); Mean Corpuscular Hemoglobin 24.6 pg (27.0-33.0); Mean Corpuscular Volume 85.3 fL (80.0-98.0); Mean Platelet Volume 10.2 fL (9.4-12.3); Monocytes Absolute Auto 0.2 X10*3/uL (0.1-1.2); Monocytes Percent Auto 1.8 % (2-11); Neutrophils Absolute Auto 11.9 x10*3/uL (2.0-8.3); Platelet Count 204 X10*3/uL (160-400); Red Blood Count 3.46 X10*6/uL (4.20-5.50); Red Cell Distribution Width 15.2 % (11.0-16.0); SCAN SMEAR FLAG 1; White Blood Count 12.5 X10*3/uL (4.8-10.8)
[2024-09-28 06:17] LABS: VBG pCO2 56 mmHg; VBG pH 7.54 (7.32-7.43); VBG pO2 83 mmHg
[2024-09-28 06:17] LABS: Alanine Aminotransferase < 6 U/L (0-31); Albumin Level 3.3 g/dL (3.5-5.0); Alkaline Phosphatase 94 U/L (39-117); Anion Gap 13 (12-20); Aspartate Amino Transferase 13 U/L (5-31); Bilirubin Total 0.4 mg/dL (0.0-1.0); Blood Urea Nitrogen 19 mg/dL (9-16); Calcium 8.7 mg/dL (8.4-10.2); Carbon Dioxide 38 mmol/L (22-29); Chloride 100 mmol/L (96-108); Creatinine Clr Calc Pharmacy 67.2; Estimated Glomerular Filt Rate 49; Glucose Random 177 mg/dL (60-115); Magnesium 2.1 mg/dL (1.6-2.6); Sodium 147 mmol/L (135-145); Total Protein 6.7 g/dL (6.5-8.0)
[2024-09-28 06:18] LABS: VBG HCO3 49 mmol/L (22-26)
[2024-09-28 06:25] LABS: Troponin-I High Sensitivity 24.5 ng/L (<3.5-17.0)
--- NOTE | 2024-09-28 06:31 | PC.NURSE ---
ADMIT TO ICU 262-1 APPROX 5AM...CONTINUED ON BIPAP...DROWSY..AROUSES TO VERBAL STIMULI..VAGUE RESPONSES..INITIAL BIPAP SETTINGRATE 20...25/5 AND FIO2 40%...PER ICU PA BACK UP RATE CHANGED TO 26...CONTINUES 25/5...FIO2 TO 35%...SAO2 GOAL 88-90% PER PROVIDER...INCONTINANT LARGE AMOUNT URINE AT ARRIVAL WHILE BEING CHANGED...BLADDER SCANNED AFTER INCONTINANCE FOR >999ML...GUTIERREZ CATHETER INSERTED PER PROVIDER WITH 1175ML CLEAR YELLOW URINE OBTAINED...GROIN FOLDS REDDENED/EXCORIATED..RIGHT AXILLA WITH SMALL AMOUNT BLOODY DRAINAGE FROM I&D ATTEMPT OF ABSCESS
[2024-09-28 06:36] LABS: SLIDE REVIEW VERIFIED
--- NOTE | 2024-09-28 07:00 | CA_ITS ---
Transthoracic Echocardiogram Patient (Last, First, Middle): Brianne Chaudhary, Gender: Female Date of : 1960 Age: 64 Procedure Date: 09/28/2024 Procedure Type: Transthoracic Echocardiogram Location: ICU Height: 157.48 cm Weight: 129.73 kg BSA: 2.23 m2 Heart Rate: 82 bpm BP: 132 / 51 mmHg Publisher Assistant: ARNOL Referring MD: Ranjan WILLARD Coal Carrier: Keyur Davis MD Symptoms: chf Study Quality: Fair ECG Rhythm: Sinus Conclusions: - 1. Low normal LV ejection fraction of 50-55% with impaired relaxation filling pattern 2. At least moderately dilated left atrium 3. Mild aortic stenosis 4. Severe mitral annular calcification with a early mild mitral stenosis 5. Moderate to severe elevation right ventricular systolic pressure was significantly elevated right atrial pressures Findings Procedure Information The quality of the study was technically difficult. The study quality is limited by the patients inability to tolerate the test, patients body habitus, and lung artifact. Left Ventricle Normal left ventricular cavity size. There is normal left ventricular wall thickness. The left ventricular systolic function is low normal. The visually estimated ejection fraction is between 50-55%. Spectral Doppler is indicative of an impaired relaxation filling pattern. There is mild septal asymmetric hypertrophy. Right Ventricle The right ventricle was not well visualized. There is normal right ventricular systolic function. Atria The left atrium is moderately dilated. Interatrial shunt cannot be excluded. The right atrium was not well visualized. Aortic Valve The aortic valve was not well visualized. There is mild calcification of the aortic valve. There is mild aortic valve stenosis. The peak aortic velocity is 2.51 m/s with a calculated peak gradient of 25 mmHg. The mean gradient is 13 mmHg. The aortic valve area is 2.14 cm2. There is no aortic valve regurgitation. Mitral Valve There is mild anterior and severe posterior mitral leaflet thickening. There is severe mitral annular calcification. There is no mitral valve regurgitation. There is mild mitral valve stenosis. Pulmonic Valve The pulmonic valve was not well visualized. Tricuspid Valve Normal tricuspid valve structure. There is mild tricuspid valve regurgitation. Significantly elevated right atrial pressure. Moderate to severe pulmonary hypertension is present. Great Vessels The aorta was not well visualized. The pulmonary artery was not well visualized. Venous The inferior vena cava is severely dilated and does not collapse with inspiration. Pericardium/Pleural The pericardium was not well visualized. Prior Study Comparison No significant change compared to prior study dated: 04/25/2024. Measurements 2D Linear Measurements IVSd: 1.40 0.6-0.9/0.6-1.0 cm LVIDd: 5.24 3.9-5.3/4.2-5.9 cm LVIDd Index: 2.35 2.4-3.2/2.2-3.1 cm/m2 LVIDs: 3.28 2.0-3.6 cm LVPWd: 0.91 0.7-1.1 cm LA Diam: 4.70 2.7-3.8/3.0-4.0 cm LAIDs Index: 2.11 1.5-2.3 cm/m2 LV Mass: 298.48 67-162/88-224 g LV Mass Index: 133.85 43-95/49-115 g/m2 LVOT Diam: 1.90 3.0+(-)1.3 cm 2D Systolic Function EF 4C: 55.90 >55% EF 2C: 43.20 >55% EF BiP: 50.70 >55% Mitral Valve MV VTI: 0.44 MV Pk Shahram: 1.91 MV Mn Shahram: 1.28 MV Pk Grad: 15.00 MV Mn Grad: 7.00 MV Pk E: 1.43 MV PK A: 2.04 MV Decel Time: 294.00 E/A: 0.70 E'Lateral: 4.35 E/E' Lat: 32.90 PHT: 86.00 MVA PHT: 2.56 MVA Continuity: 2.49 Decel Lagrange: 4.88 Aortic Valve AoV Pk Shahram: 2.51 AoV Mn Shahram: 1.68 AoV VTI: 0.55 AoV Pk Grad: 25.00 Aov Mn Grad: 13.00 RENATA Cont.VTI: 2.14 LVOT LVOT Pk Shahram: 1.62 LVOT Mn Shahram: 1.08 LVOT VTI: 0.39 LVOT Pk Grad: 10.00 LVOT Mn Grad: 6.00 LVOT Diam: 1.90 LVOT Area: 2.84 Diastolic Function MV Pk E: 1.43 MV Pk A: 2.04 E/A: 0.70 E' Laterial: 4.35 E/E' Lat: 32.90 Right Ventricle TAPSE (mm): 25.40 TVS' Shahram: 16.00 Tricuspid Valve TR Pk Shahram: 3.74 TR Pk Grad: 56.00 RA Press: 15.00 RVSP: 71.00 Great Vessels Aorta Sinus of Valsalva: 3.10 2.0-3.5 cm Ao Asc: 3.50 2.1-3.4 cm Pulmonary Valve PV Pk Shahram: 1.30 Peak PV Grad: 7.00 Updated in Other Vendor System with Status of Final Keyur Davis MD electronically signed on 09/28/2024 10:26:27 AM with status of Final
[2024-09-28] MEDS: methylPREDNISolone Sod Succ 125 MG/2 ML VIAL 60 MG IVPUSH (08:06)
--- NOTE | 2024-09-28 08:17 | PHA.PROG ---
Admission Date/Time: September 28, 2024 03:00 Indication: skin Weight in k kg OBESE Serum Creatinine - Last 168 Hours 09/27/24 09/28/24 20:24 05:45 Creatinine 1.09 1.12 Estimated CrCl and GFR - Last 168 Hours 09/27/24 09/28/24 20:24 05:45 Estim Creat Clear Calc 69.0 67.2 Estimated GFR 51 49 Vancomycin Loading Dose: 2000 Current Vancomycin Dosing Regimen: 750 Q12h Vancomycin Monitoring using AUC goal of 400 - 600 range with trough as surrogate marker: 567 Date and Time for next Vancomycin Level to be drawn: 09/29 @0700 Pharmacist Comments on Vancomycin Plan: Vancomycin dosing will take advantage of [employer] as a clinical decision support tool that uses Bayesian modeling to calculate individual patient's pharmacokinetic parameters and forecast the patient's drug concentration time course with the target goal AUC 24 range of 400 - 600 mg/L/hr.
[2024-09-28] MEDS: vancomycin HCL 750 MG in 0.9 % Sodium Chloride 250 ML 265 MG IV ×2 (08:46→21:06)
--- NOTE | 2024-09-28 10:25 | PC.RT ---
Pt was noted awake and coop this am post O2 reduction and Ipap reduction. Asking to come off mask. Pt aware of place and time. Transitioned to 4 lpm [place] @ 08:00 she was sleepy at 10:25 and returned to the bipap @ 32% fio2. Nursing and MD aware.
--- NOTE | 2024-09-28 11:31 | PM.CCN ---
Critical Care Event Note Summary Date of Service: 09/28/24 Code activated: No Narrative: This case had a high probability of a clinically significant, sudden, or life threatening deterioration of this patient's condition which required my full and direct attention, intervention and personal management. Critical Care Time (minutes): 35 Comment: Patient had a low map of 62 mm Hg this morning at 06:00 this was secondary to positive pressure ventilation and not due to sepsis.
[2024-09-28] MEDS: fentaNYL citrate/PF 100 MCG/2 ML VIAL 50 MCG IVPUSH ×2 (13:10→15:20)
[2024-09-28] MEDS: predniSONE 20 MG TABLET 40 MG PO (13:11)
--- NOTE | 2024-09-28 13:22 | HO.WOUND ---
Wound Consult: Initial 64yr old?[place] [facility] 03:00 - See progress notes and H&P for detailed history.? Wound consult placed for Perineal area.? Patient agreeable to assessment and photo documentation, she is mildly interactive on BiPAP and ICU level of care. Of importance the BIpap does have preventative foam in place on the bridge of the nose. CHARLIE Mattress in use. The patient is noted ot have a chronic wound to her right lateral thigh which was assessed to be healed. There is a divot but appears to be closed at this time. Jossie area Etiology: ?? MASD and fungal dermatitis. Wound Bed: red pink intact blanchable tissue - advancing macular papular borders. Drainage / Odor: yeast odor noted Edges: ? advacning Jossie wound: intact - MASD ? No Induration, Fluctuance or Warmth noted Goals of Treatment: Inter dry or Nystatin recommended. ? Recommendations: 1. Turn and Reposition every 2 hours and as needed for patient comfort.? Use pillows or wedges to support off loading positions. 2. Off Load all bony prominences with use of pillows and heel boots if needed.? Apply Preventative foams where needed. ? 3. Monitor for incontinence and moisture control, use barrier creams when needed for prevention and treatment. 4. Provide adequate and supplemental nutrition.? 5. Continue low air loss mattress. 6. When applicable maintain blood glucose levels per Providers order. 7. Perineal Area - Cleanse with Ph balanced wipes, pat dry. Apply Antifungal powder twice daily per provider order. Alternative is to use Interdry. Tuck Interdry AG Sheet into skin fold to wick and translocate moisture away from skin fold.? Be sure to leave at least 2 inch of fabric exposed outside of skin fold.? Change after 5 days or when soiled. 8. Bridge of nose - Apply skin prep be sure to avoid eyes. Allow to dry. Cover bridge of nose with Mepilex Lite when BiPAP is in use. Re-consult wound care Nurse for wound deterioration or wound changes.
--- NOTE | 2024-09-28 15:04 | PHA.MEDREC ---
Pharmacy Consult ? Medication Reconciliation Pharmacy has completed the medication reconciliation Spoke to patient to confirm medication list. Patient uses both [facility] and [facility]. She confirmed she takes diltiazem, furosemide, omeprazole, theophylline and trelegy (fill at [facility]). She confirmed she takes vitamin D3, acetaminophen, clonazepam (1 mg in the morning and 0.5 mg bid prn), oxycodone (10 mg 5Xdaily) and temazepam and these are filled at the [facility] in [place]. She said she is taking meloxicam 15 mg daily (has 3-4 days left of it). She hasn't started pregabalin 50 mg yet because still waiting for it to come in the mail from [facility]. She no longer takes atorvastatin 80 mg nor buprenorphine. She was not able to confirm if she is still taking cephalexin or not. Last dose of medications was yesterday 09/27/24.
--- NOTE | 2024-09-28 15:38 | MHC.CM.PN ---
Met w/pt to review d/c planning: pt is A&O x4, resides w/spouse and children, has [employer] for Home O2 and [facility]. Family assists w/transportation and other care needs. Upon referral to [facility], they are not able to accept her d/t capacity issues. Referred to [facility] - awaiting acceptance at this time. HCP and [facility] on file and verified, PCP is Dr. Diego. CM to follow
[2024-09-28] MEDS: dilTIAZem HCL CD 240 MG CAP.ER.DEG PO (16:17)
[2024-09-28] MEDS: Furosemide 20 MG TABLET PO (21:09)
[2024-09-28] MEDS: oxyCODONE HCl Immed Release 5 MG TABLET 10 MG PO (21:22)
[2024-09-28] MEDS: clonazePAM 0.5 MG TABLET PO (21:22)
[2024-09-29] VITALS (11 sets, daily range): BP systolic 114–164; BP diastolic 54–91; PULSE 66–79; RESP 14–22; TEMP 36–36.7; O2SAT 95–99; BMI 51.6
[2024-09-29] MEDS: Heparin Sodium,Porcine 5,000 UNIT/ML VIAL 5000 UNIT SUBCUT ×3 (03:27→20:37)
[2024-09-29] MEDS: Piperacillin Sodium/Tazobactam 3.375 GM in 0.9 % Sodium Chloride 50 ML IV ×4 (03:30→22:32)
[2024-09-29] MEDS: oxyCODONE HCl Immed Release 15 MG TABLET 30 MG PO (03:33)
[2024-09-29] MEDS: Omeprazole 20 MG CAPSULE.DR PO (06:18)
[2024-09-29 07:58] LABS: Basophils Percent Auto 0.2 % (0-2); Creatinine Clr Calc Pharmacy 72.4; Estimated Glomerular Filt Rate 54; Hemoglobin 8.3 g/dl (12.0-16.0); Imm Gran Abs Auto 0.08 X10*3/uL (0.00-0.03); Imm Gran Pct Auto 0.6 % (0.0-0.4); Lymphocytes Absolute Auto 0.6 X10*3/uL (1.2-4.9); Lymphocytes Percent Auto 4.4 % (20-40); MANUAL DIFF FLAG SCAN; Mean Corpuscular HGB Conc 29.6 g/dl (31.0-35.0); Mean Corpuscular Hemoglobin 24.9 pg (27.0-33.0); Mean Corpuscular Volume 83.8 fL (80.0-98.0); Mean Platelet Volume 10.2 fL (9.4-12.3); Monocytes Absolute Auto 0.5 X10*3/uL (0.1-1.2); Neutrophils Absolute Auto 11.4 x10*3/uL (2.0-8.3); Neutrophils Percent Auto 90.8 % (45-73); Platelet Count 200 X10*3/uL (160-400); Red Blood Count 3.34 X10*6/uL (4.20-5.50); Red Cell Distribution Width 14.9 % (11.0-16.0); SCAN SMEAR FLAG 1; White Blood Count 12.6 X10*3/uL (4.8-10.8)
[2024-09-29 08:28] LABS: SLIDE REVIEW VERIFIED
[2024-09-29 08:40] LABS: Vancomycin Trough 27.1 mcg/mL (10.0-20.0)
--- NOTE | 2024-09-29 08:49 | HE.PHANOTE ---
RE VANCO DOSING TROUGH ELEVATED AT 27.1. HOLDING ORDERS UNTIL 2100. WILL RECHECK TROUGH AND SCR @1900 TONIGHT TO CONFIRM SAFETY BEFORE REDOSING.
[2024-09-29] MEDS: clonazePAM 1 MG TABLET PO (09:41)
[2024-09-29] MEDS: predniSONE 20 MG TABLET 40 MG PO (09:41)
[2024-09-29] MEDS: dilTIAZem HCL CD 240 MG CAP.ER.DEG PO (09:51)
[2024-09-29] MEDS: Furosemide 20 MG TABLET PO (09:51)
[2024-09-29 10:54] LABS: Anion Gap 9 (12-20); Blood Urea Nitrogen 27 mg/dL (9-16); Calcium 8.2 mg/dL (8.4-10.2); Carbon Dioxide 41 mmol/L (22-29); Chloride 97 mmol/L (96-108); Creatinine Clr Calc Pharmacy 73.1; Estimated Glomerular Filt Rate 55; Glucose Random 220 mg/dL (60-115); Sodium 143 mmol/L (135-145)
[2024-09-29] MEDS: Fluticasone/Umeclidinium/Vilanterol 100/62.5/25 BLST.W.DEV 1 PUFF INHALE (11:16)
--- NOTE | 2024-09-29 11:43 | MHC.CM.PN ---
EMR REVIEWED, PT REMAINS ON 5L O2 VIA NC, PT'S IV LASIX CHANGED TO PO ON 09/28, P.T. EVAL PENDING FOR DISPO, [facility] AND [facility] DECLINED PT, CM WILL EXPAND [facility] REFERRAL VS STR REF PENDING EVAL AND CONT TO FOLLOW DC NEEDS.
[2024-09-29] MEDS: Nystatin Powder 15 GM BOTTLE 1 APPL TOPICAL ×2 (11:52→20:40)
--- NOTE | 2024-09-29 12:19 | HO.PM.IMPN ---
Subjective Subjective Date of Service: 09/29/24 Interval History: seen and evaluated this morning Feels weak and reporting pain in axilla more alert this morning on CPAP no other events Review of Systems Review of Systems: Yes all other systems are reviewed and are negative Physical Exam Vital Signs: Vital Signs: Last Vital Signs Temp 97.4 F 09/29/24 07:49 Pulse 70 09/29/24 11:22 Resp 18 09/29/24 11:22 BP 164/77 H 09/29/24 09:51 Pulse Ox 96 09/29/24 07:49 O2 Del Method Nasal Cannula 09/29/24 07:49 O2 Flow Rate 5 09/29/24 07:49 FiO2 35 09/28/24 12:00 Oxygen Flow Rate 7 09/29/24 04:00 BMI result Body Mass Index 51.6 Const: Other: Constitutional : Awake, interactive, morbidly obese, not in distress Neck : Normal inspection, Supple Cardiovascular : RRR, no JVP, trace bilateral lower extremity edema Respiratory : fair bilateral air entry, no crackles, scattered expiratory wheezes Gastrointestinal: soft, lax, Normal bowel sounds, Non tender Skin : Warm, Dry skin mainly LE with chronic changes Neurological : Alert & oriented x3, No focal deficit Objective Data Active Medications Albuterol Sulfate (Albuterol Sulfate (0.083%) 2.5 Mg/3 Ml Vial.Neb) 2.5 mg INHALE Q3H PRN PRN Reason: wheezing Albuterol/Ipratropium (Albuterol/Iprat 2.5/0.5mg 3 Ml Ampul.Neb) 3 ml INHALE Q6H [facility] Last Admin: 09/29/24 08:06 Dose: Not Given Clonazepam (Clonazepam 0.5 Mg Tablet) 0.5 mg PO BID PRN PRN Reason: Anxiety Last Admin: 09/28/24 21:22 Dose: 0.5 mg Documented By: MUKUND Clonazepam (Clonazepam 1 Mg Tablet) 1 mg PO DAILY [facility] Last Admin: 09/29/24 09:41 Dose: 1 mg Documented By: CONOR Diltiazem HCl (Diltiazem Hcl Cd 240 Mg Cap.Er.Deg) 240 mg PO DAILY [facility]; Protocol Last Admin: 09/29/24 09:51 Dose: 240 mg Documented By: CONOR Fluticasone/Umeclidinium/Vilanterol (Fluticasone/Umeclidinium/Vilanterol 100/62.5/ Blst.W.Dev) 1 puff INHALE DAILY [facility] Last Admin: 09/29/24 11:16 Dose: 1 puff Documented By: DAVONTE Furosemide (Furosemide 20 Mg Tablet) 20 mg PO BID [facility]; Protocol Last Admin: 09/29/24 09:51 Dose: 20 mg Documented By: CONOR Heparin Sodium (Porcine) (Heparin Sodium,Porcine 5,000 Unit/Ml Vial) 5,000 unit SUBCUT Q8H [facility] Last Admin: 09/29/24 11:52 Dose: 5,000 unit Documented By: VANDA Piperacillin Sod/Tazobactam (Sod 3.375 gm/ Sodium Chloride) 50 mls @ 100 mls/hr IV Q6H [facility] Last Infusion: 09/29/24 11:55 Dose: Infused Documented By: VANDA Vancomycin HCl 1,250 mg/ (Sodium Chloride) 250 mls @ 166.667 mls/hr IV Q24H [facility] Nystatin (Nystatin Powder 15 Gm Bottle) 1 appl TOPICAL BID [facility]; Protocol Last Admin: 09/29/24 11:52 Dose: 1 appl Documented By: VANDA Comments: late as was awaiting from pharmacy Omeprazole (Omeprazole 20 Mg Capsule.) 20 mg PO DAILY@0630 [facility] Last Admin: 09/29/24 06:18 Dose: 20 mg Documented By: MUKUND Oxycodone HCl (Oxycodone Hcl Immed Release 5 Mg Tablet) 10 mg PO Q6H PRN PRN Reason: Pain, Severe (Pain Scale 7-10) Last Admin: 09/28/24 21:22 Dose: 10 mg Documented By: MUKUND Pharmacy Consult (Consult Rx Vancomycin Dosing) 1 each MISCELLANE DAILY PRN PRN Reason: Consult order Prednisone (Prednisone 20 Mg Tablet) 40 mg PO DAILY [facility] Last Admin: 09/29/24 09:41 Dose: 40 mg Documented By: CONOR Temazepam (Temazepam 15 Mg Capsule) 30 mg PO BEDTIME PRN PRN Reason: Sleep Labs 09/29/24 07:02 09/29/24 07:02 Labs: Laboratory Results - last 24 hr 09/29/24 09/29/24 09/29/24 07:02 07:02 07:02 MCV 83.8 MCH 24.9 L MCHC 29.6 L RDW 14.9 Plt Count 200 MPV 10.2 Immature Gran % (Auto) 0.6 H Neut % (Auto) 90.8 H Lymph % (Auto) 4.4 L Mcclain % (Auto) 4.0 Eos % (Auto) 0.0 Baso % (Auto) 0.2 Lymph # (Auto) 0.6 L [place]cl[place] # (Auto) 0.5 Eos # (Auto) 0.0 Baso # (Auto) 0.0 Abs Immat Gran (auto) 0.08 H Absolute Neuts (auto) 11.4 H Absolute Nucleated RBC 0.000 Nucleated RBC % (auto) 0.0 Smear Tech's Comments VERIFIED Anion Gap 9 L Estim Creat Clear Calc 72.4 73.1 Estimated GFR 54 55 Random Glucose 220 H Calcium 8.2 L Vancomycin Trough 27.1 H* Microbiology Microbiology Results: Microbiology 09/27/24 20:08 Gram Stain - Final Axilla Routine Culture - Preliminary Staphylococcus aureus 09/27/24 20:24 Blood Culture - Preliminary Blood - Venous No growth after 24 hours. 09/27/24 20:08 Blood Culture - Preliminary Blood - Venous No growth after 24 hours. Assessment and Plan (1) Abscess of right axilla: Status: Acute (2) Acute respiratory failure with hypoxia and hypercarbia: Status: Acute (3) Acute respiratory failure with hypercapnia: Status: Acute (4) Cellulitis of axilla: Status: Acute Plan a 64-year-old female with pertinent history of diastolic congestive heart failure, ALEKSEY/OHS on nocturnal BiPAP, chronic hypoxic respiratory failure due to COPD, morbid obesity, paroxysmal atrial fibrillation not on anticoagulation, mood disorder who presents to the emergency department for evaluation of abscess and developed respiratory failure requiring ICU admission for bipap. # Acute hypercarbic respiratory failure improving continue CPAP at night Duonebs , Steroids BiPap when sleeping Continue IV diuresis strict I's and O's and low-salt diet O2 while awake on Vancomycin and Zosyn # Abscess of axilla pending cultures continue IV antibiotics # Vancomycin toxicity Elevated Level to 27 DC Vancomycin for now monitor BMP and Random Vanco # Acute Hypernatremia Na improved to 143 # Sacral wound . Wound care, local measures and Nystatin # PHysical deconditioning, PT eval # ALEKSEY/OHS: Continue nocturnal BiPAP # Morbid obesity: Counseled regarding diet and exercise # Paroxysmal atrial fibrillation not on anticoagulation: Normal sinus rhythm during admission # Mood disorder: Continue home mood stabilizers # Normocytic anemia, chronic DVT PPx Heparin will require overnight hospital stay for supplemental oxygen, systemic steroids, monitoring of respiratory status, IV diuresis, which is not possible in a lesser acute setting. Quality Stroke Does the patient have a stroke diagnosis?: No VTE Prior VTE?: No VTE Risk Level:: Medical - moderate - high VTE Device Contraindication: N/A - Device Ordered VTE Drug Contraindication: N/A - Med Ordered
--- NOTE | 2024-09-29 13:43 | P.CDIM_ITS ---
PROVIDER RESPONSE TEXT: To clarify, the appropriate diagnosis supported by the clinical indicators: Aspiration Pneumonitis: other QUERY TEXT: PHYSICIAN'S DOCUMENTATION REQUEST Date of Query: 09/29/2024 12:43 PM EST Patient Name: Brianne Chaudhary Admit Date: 09/28/2024 Dear Jarret Das MD, A review of the medical record indicates additional documentation may be needed. Please review below and update the documentation accordingly. Clinical Indicators: CT 09/28/24 - Impression: Mild bibasilar atelectasis/ pneumonitis, with small pleural effusion. ICU H&P 09/28/24 - Bibasilar atelectasis/pneumonitis with small pleural effusions unlikely to represent bacterial pneumonia given lack of symptomatology (no cough, no sputum production and no fever). Acute respiratory failure multifactorial in the setting of CHF and COPD exacerbation. Based on the above, could you clarify in the Progress Notes further specificity regarding the noted p neumonitis: Aspiration Pneumonitis Please indicate substance such as food or vomitus, oils, or other solids or liquids Pneumonitis interstitial, noninfectious, chemical, chronic etc. After study, Pneumonitis is ruled out Other (explain) Clinically unable to determine (explain) Thank you, Teresa Martinez, CCS, CDIS Use of terms such as suspected, likely, concern for, or probable (associated with a specific diagnosi s that is being evaluated, monitored, or treated as if it exists) are acceptable and can be coded in the inpatient se tting, when documented at the time of discharge. Please use your independent medical judgment in providing your response. THIS QUERY IS PART OF THE PERMANENT MEDICAL RECORD
[2024-09-29] MEDS: clonazePAM 0.5 MG TABLET PO ×2 (14:08→21:25)
[2024-09-29] MEDS: Albuterol/Iprat 2.5/0.5MG 3 ML AMPUL.NEB INHALE (15:32)
--- NOTE | 2024-09-29 16:15 | HO.WOUND ---
Wound Consult: Follow up 64yr old?female admitted to [facility] [place] on 09/28/24 03:00 - See progress notes and H&P for detailed history.? Wound consult placed by direct care nurse for Right Axilla area.? Patient agreeable to assessment and photo documentation. Chart review reveals she had I&D of Right Axilla in ED this admission. No topical dressing orders at this time in chart from provider. Dressing and plain packing strip removed to reveal clean red incision. approximately 1cm length and 1cm deep. In the periwound is a large approximate 5cm movable mass - patient reports she has had that for day or two prior to ED arrival. The skin is intact, pigmentation within normal limits no redness no warmth and no fluctuance noted. A firm induration / mass noted no topical intervention needed for mass at this time will defer back to provider for assessment. The I&D site can be packed with small piece of durafiber and dry gauze dressing. Recommendations: 1. Turn and Reposition every 2 hours and as needed for patient comfort.? Use pillows or wedges to support off loading positions. 2. Off Load all bony prominences with use of pillows and heel boots if needed.? Apply Preventative foams where needed. ? 3. Monitor for incontinence and moisture control, use barrier creams when needed for prevention and treatment. 4. Provide adequate and supplemental nutrition.? 5. Continue low air loss mattress. 6. When applicable maintain blood glucose levels per Providers order. 7. Perineal Area - Cleanse with Ph balanced wipes, pat dry. Apply Antifungal powder twice daily per provider order. Alternative is to use Interdry. Tuck Interdry AG Sheet into skin fold to wick and translocate moisture away from skin fold.? Be sure to leave at least 2 inch of fabric exposed outside of skin fold.? Change after 5 days or when soiled. 8. Bridge of nose - Apply skin prep be sure to avoid eyes. Allow to dry. Cover bridge of nose with Mepilex Lite when BiPAP is in use. 9. Right Axilla - Cleanse and irrigate with NS, Pat dry.? Apply barrier to periwound, lightly pack with Durafiber AG, be sure to leave a wick to easy removal.? Cover with dry dressing.? Change every other day. Re-consult wound care Nurse for wound deterioration or wound changes.
[2024-09-29] MEDS: oxyCODONE HCl Immed Release 5 MG TABLET 10 MG PO ×2 (17:14→23:34)
[2024-09-29 19:25] LABS: Vancomycin Trough 24.1 mcg/mL (10.0-20.0)
[2024-09-29 19:26] LABS: Creatinine Clr Calc Pharmacy 84.9; Estimated Glomerular Filt Rate > 60
[2024-09-29] MEDS: Temazepam 15 MG CAPSULE 30 MG PO (23:34)
[2024-09-30] VITALS (14 sets, daily range): BP systolic 127–185; BP diastolic 56–87; PULSE 55–90; RESP 16–20; TEMP 36.1–36.6; O2SAT 92–98; BMI 52.9
--- NOTE | 2024-09-30 00:18 | P.CDIM_ITS ---
PROVIDER RESPONSE TEXT: To clarify, the appropriate diagnosis supported by the clinical indicators: Hypernatremia: Acute due to volume overload QUERY TEXT: PHYSICIAN'S DOCUMENTATION REQUEST Date of Query: 09/28/2024 09:59 AM EST Patient Name: Brianne Chaudhary Admit Date: 09/28/2024 Dear Ranjan WILLARD, A review of the medical record indicates additional documentation may be needed. Please review below and update the documentation accordingly. Clinical Indicators: LAB FINDINGS: 3/6 - sodium 147 H Fluids Based on the above, could you clarify if there is a diagnosis that correlates with the above lab find ings for this patient: Hypernatremia resolved, possible, probable etc. Labs indicate a diagnosis of (please specify) Other (explain) Clinically unable to determine (explain) Thank you, Teresa Martinez, CCS, CDIS Use of terms such as suspected, likely, concern for, or probable (associated with a specific diagnosi s that is being evaluated, monitored, or treated as if it exists) are acceptable and can be coded in the inpatient se tting, when documented at the time of discharge. Please use your independent medical judgment in providing your response. THIS QUERY IS PART OF THE PERMANENT MEDICAL RECORD
[2024-09-30] MEDS: Heparin Sodium,Porcine 5,000 UNIT/ML VIAL 5000 UNIT SUBCUT ×3 (03:38→19:54)
[2024-09-30] MEDS: Piperacillin Sodium/Tazobactam 3.375 GM in 0.9 % Sodium Chloride 50 ML IV (04:06)
[2024-09-30 06:46] LABS: MANUAL DIFF FLAG NO
[2024-09-30] MEDS: Omeprazole 20 MG CAPSULE.DR PO (06:46)
[2024-09-30 06:52] LABS: Basophils Percent Auto 0.2 % (0-2); Eosinophils Absolute Auto 0.1 X10*3/uL (0.0-0.4); Eosinophils Percent Auto 0.7 % (0-4); Hematocrit 28.7 % (37.0-47.0); Hemoglobin 8.6 g/dl (12.0-16.0); Imm Gran Abs Auto 0.12 X10*3/uL (0.00-0.03); Lymphocytes Absolute Auto 1.7 X10*3/uL (1.2-4.9); Lymphocytes Percent Auto 14.3 % (20-40); Mean Corpuscular Hemoglobin 24.8 pg (27.0-33.0); Mean Corpuscular Volume 82.7 fL (80.0-98.0); Mean Platelet Volume 9.6 fL (9.4-12.3); Monocytes Absolute Auto 0.9 X10*3/uL (0.1-1.2); Neutrophils Absolute Auto 9.3 x10*3/uL (2.0-8.3); Neutrophils Percent Auto 76.8 % (45-73); Platelet Count 222 X10*3/uL (160-400); Red Blood Count 3.47 X10*6/uL (4.20-5.50); Red Cell Distribution Width 14.9 % (11.0-16.0); White Blood Count 12.2 X10*3/uL (4.8-10.8)
[2024-09-30 07:13] LABS: Anion Gap 11 (12-20); Blood Urea Nitrogen 25 mg/dL (9-16); Calcium 8.2 mg/dL (8.4-10.2); Carbon Dioxide 39 mmol/L (22-29); Chloride 98 mmol/L (96-108); Estimated Glomerular Filt Rate > 60; Glucose Random 173 mg/dL (60-115); Potassium 3.8 mmol/L (3.3-5.1); Sodium 144 mmol/L (135-145)
[2024-09-30 07:16] LABS: Vancomycin Random 17.8 mcg/mL (15-20)
[2024-09-30] MEDS: Doxycycline Hyclate 100 MG in 0.9 % Sodium Chloride 250 ML 166.67 MG IV ×2 (09:49→19:52)
[2024-09-30] MEDS: predniSONE 20 MG TABLET 40 MG PO (09:50)
[2024-09-30] MEDS: Furosemide 20 MG TABLET PO ×2 (09:50→19:52)
[2024-09-30] MEDS: dilTIAZem HCL CD 240 MG CAP.ER.DEG PO (09:50)
[2024-09-30] MEDS: clonazePAM 1 MG TABLET PO (09:50)
[2024-09-30] MEDS: Nystatin Powder 15 GM BOTTLE 1 APPL TOPICAL ×2 (09:50→19:54)
[2024-09-30] MEDS: oxyCODONE HCl Immed Release 5 MG TABLET 20 MG PO ×2 (10:40→22:39)
--- NOTE | 2024-09-30 11:08 | HO.PM.IMPN ---
Subjective Subjective Date of Service: 09/30/24 Interval History: seen and evaluated this morning reporting pain in axilla with mass alert and interactive no other events Review of Systems Review of Systems: Yes all other systems are reviewed and are negative Physical Exam Vital Signs: Vital Signs: Last Vital Signs Temp 97.0 F 09/30/24 11:02 Pulse 57 09/30/24 11:02 Resp 18 09/30/24 11:02 BP 131/64 09/30/24 11:02 Pulse Ox 98 09/30/24 11:02 O2 Del Method Nasal Cannula 09/30/24 11:02 O2 Flow Rate 4 09/30/24 11:02 FiO2 35 09/28/24 12:00 Oxygen Flow Rate 8 09/30/24 00:00 BMI result Body Mass Index 52.9 Const: Other: Constitutional : Awake, interactive, morbidly obese, not in distress Neck : Normal inspection, Supple Cardiovascular : RRR, no JVP, trace bilateral lower extremity edema Respiratory : fair bilateral air entry, no crackles, scattered expiratory wheezes Gastrointestinal: soft, lax, Normal bowel sounds, Non tender Skin : Warm, Dry skin mainly LE with chronic changes , enlarged mass in rt axilla, tender, no significant dainage noted Neurological : Alert & oriented x3, No focal deficit Objective Data Active Medications Albuterol Sulfate (Albuterol Sulfate (0.083%) 2.5 Mg/3 Ml Vial.Neb) 2.5 mg INHALE Q3H PRN PRN Reason: wheezing Albuterol/Ipratropium (Albuterol/Iprat 2.5/0.5mg 3 Ml Ampul.Neb) 3 ml INHALE Q6H [facility] Last Admin: 09/30/24 07:05 Dose: Not Given Documented By: KENNETH Non-Admin Reason: Patient Refused Clonazepam (Clonazepam 0.5 Mg Tablet) 0.5 mg PO BID PRN PRN Reason: Anxiety Last Admin: 09/29/24 14:08 Dose: 0.5 mg Documented By: VANDA Clonazepam (Clonazepam 1 Mg Tablet) 1 mg PO DAILY [facility] Last Admin: 09/30/24 09:50 Dose: 1 mg Documented By: GARY Diltiazem HCl (Diltiazem Hcl Cd 240 Mg Cap.Er.Deg) 240 mg PO DAILY [facility]; Protocol Last Admin: 09/30/24 09:50 Dose: 240 mg Documented By: GARY Fluticasone/Umeclidinium/Vilanterol (Fluticasone/Umeclidinium/Vilanterol 100/62.5/ Blst.W.Dev) 1 puff INHALE DAILY [facility] Last Admin: 09/29/24 11:16 Dose: 1 puff Documented By: DAVONTE Furosemide (Furosemide 20 Mg Tablet) 20 mg PO BID [facility]; Protocol Last Admin: 09/30/24 09:50 Dose: 20 mg Documented By: GARY Heparin Sodium (Porcine) (Heparin Sodium,Porcine 5,000 Unit/Ml Vial) 5,000 unit SUBCUT Q8H [facility] Last Admin: 09/30/24 03:38 Dose: 5,000 unit Documented By: ANGELLA Doxycycline Hyclate 100 mg/ (Sodium Chloride) 250 mls @ 166.67 mls/hr IV Q12H [facility] Last Infusion: 09/30/24 09:58 Dose: 0 mls/hr Documented By: GARY Nystatin (Nystatin Powder 15 Gm Bottle) 1 appl TOPICAL BID [facility]; Protocol Last Admin: 09/30/24 09:50 Dose: 1 appl Documented By: GARY Omeprazole (Omeprazole 20 Mg Capsule.) 20 mg PO DAILY@0630 [facility] Last Admin: 09/30/24 06:46 Dose: 20 mg Documented By: ANGELLA Oxycodone HCl (Oxycodone Hcl Immed Release 5 Mg Tablet) 20 mg PO Q6H PRN PRN Reason: Pain, Severe (Pain Scale 7-10) Last Admin: 09/30/24 10:40 Dose: 20 mg Documented By: GARY Prednisone (Prednisone 20 Mg Tablet) 40 mg PO DAILY [facility] Last Admin: 09/30/24 09:50 Dose: 40 mg Documented By: GARY Temazepam (Temazepam 15 Mg Capsule) 30 mg PO BEDTIME PRN PRN Reason: Sleep Last Admin: 09/29/24 23:34 Dose: 30 mg Documented By: ANGELLA Labs 09/30/24 06:43 09/30/24 06:43 Labs: Laboratory Results - last 24 hr 09/29/24 09/30/24 09/30/24 18:58 06:43 06:43 MCV 82.7 MCH 24.8 L MCHC 30.0 L RDW 14.9 Plt Count 222 MPV 9.6 Immature Gran % (Auto) 1.0 H Neut % (Auto) 76.8 H Lymph % (Auto) 14.3 L [place] % (Auto) 7.0 Eos % (Auto) 0.7 Baso % (Auto) 0.2 Lymph # (Auto) 1.7 [place] # (Auto) 0.9 Eos # (Auto) 0.1 Baso # (Auto) 0.0 Abs Immat Gran (auto) 0.12 H Absolute Neuts (auto) 9.3 H Absolute Nucleated RBC 0.000 Nucleated RBC % (auto) 0.0 Anion Gap 11 L Estim Creat Clear Calc 84.9 Cancelled 83.0 Estimated GFR > 60 Cancelled Random Glucose Calcium Vancomycin Trough 24.1 H Random Vancomycin 09/30/24 06:43 MCV MCH MCHC RDW Plt Count MPV Immature Gran % (Auto) Neut % (Auto) Lymph % (Auto) Sierra % (Auto) Eos % (Auto) Baso % (Auto) Lymph # (Auto) [place] # (Auto) Eos # (Auto) Baso # (Auto) Abs Immat Gran (auto) Absolute Neuts (auto) Absolute Nucleated RBC Nucleated RBC % (auto) Anion Gap Estim Creat Clear Calc Estimated GFR > 60 Random Glucose 173 H Calcium 8.2 L Vancomycin Trough Random Vancomycin 17.8 Microbiology Microbiology Results: Microbiology 09/27/24 20:08 Gram Stain - Final Axilla Routine Culture - Final Staphylococcus aureus 09/27/24 20:24 Blood Culture - Preliminary Blood - Venous No growth after 48 hours. 09/27/24 20:08 Blood Culture - Preliminary Blood - Venous No growth after 48 hours. Assessment and Plan (1) Abscess of right axilla: Status: Acute (2) Acute respiratory failure with hypercapnia: Status: Acute Plan a 64-year-old female with pertinent history of diastolic congestive heart failure, ALEKSEY/OHS on nocturnal BiPAP, chronic hypoxic respiratory failure due to COPD, morbid obesity, paroxysmal atrial fibrillation not on anticoagulation, mood disorder who presents to the emergency department for evaluation of abscess and developed respiratory failure requiring ICU admission for bipap. # Acute hypercarbic respiratory failure 2/2 COPD exacerbation improving continue CPAP at night Duonebs , Steroids BiPap when sleeping , noted to have sinus bradycardia Continue IV diuresis strict I's and O's and low-salt diet O2 while awake # Abscess of axilla pending cultures continue IV antibiotics dc Vancomycin and Zosyn , on Doxycycline IV # Vancomycin toxicity Elevated Level to 27 DC Vancomycin for now monitor BMP and Random Vanco # Acute Hypernatremia Na improved to 143 # Sacral wound . Wound care, local measures and Nystatin # PHysical deconditioning, PT eval # ALEKSEY/OHS: Continue nocturnal BiPAP # Morbid obesity: Counseled regarding diet and exercise # Paroxysmal atrial fibrillation not on anticoagulation: Normal sinus rhythm during admission # Mood disorder: Continue home mood stabilizers # Normocytic anemia, chronic DVT PPx Heparin will require overnight hospital stay for supplemental oxygen, systemic steroids, monitoring of respiratory status, IV diuresis, pending surgical consult Quality Stroke Does the patient have a stroke diagnosis?: No VTE Prior VTE?: No VTE Risk Level:: Medical - moderate - high VTE Device Contraindication: N/A - Device Ordered VTE Drug Contraindication: N/A - Med Ordered
[2024-09-30] MEDS: Albuterol/Iprat 2.5/0.5MG 3 ML AMPUL.NEB INHALE ×2 (11:31→15:39)
[2024-09-30] MEDS: Fluticasone/Umeclidinium/Vilanterol 100/62.5/25 BLST.W.DEV 1 PUFF INHALE (11:32)
[2024-09-30] MEDS: clonazePAM 0.5 MG TABLET PO ×2 (14:38→20:05)
--- NOTE | 2024-09-30 15:15 | PM.CNGS ---
History of Present Illness Consult details Consult date: 09/30/24 Requesting physician: Jarret Das Narrative: Patient is a 64-year-old female with multiple medical issues who has right axillary arm abscess which was incised and drained in the ER but is increasing in size and tenderness and as a result she has being brought down to the operating room to undergo incision and drainage of this. Review of Systems Review of Systems: Yes all other systems are reviewed and are negative PMFSH Past Medical History Medical History VERN (acute kidney injury) COPD (chronic obstructive pulmonary disease) Enterococcus faecalis infection MSSA (methicillin susceptible Staphylococcus aureus) MRSA (methicillin resistant staph aureus) culture positive Encounter for management of wound VAC Chronic osteomyelitis Hypertension Iron deficiency anemia COPD (chronic obstructive pulmonary disease) Femur fracture Crohn's colitis Morbid obesity due to excess calories Closed tibia fracture Acute on chronic respiratory failure with hypoxia and hypercapnia Nonrheumatic mitral (valve) stenosis Paroxysmal atrial fibrillation Dyspnea Hypoventilation associated with obesity Pickwickian syndrome Chronic hypercapnic respiratory failure Opioid use disorder Family History Family History Other Adopted Surgical History Surgical History Hx of cholecystectomy History of open reduction and internal fixation (ORIF) procedure Status post open reduction and internal fixation (ORIF) of fracture Recent surgical procedure on lower extremity Social History Social History Household Members: Spouse and Children Household Members Other:: , Hoa. Daughter Carolyn, 21. Daughter's Boyfriend, 22. Neice, 21 Housing: House Do you presently have visiting nurse or other home services: Yes (wound care) Alcohol intake: never Patient Tobacco Use Status: Former Tobacco user Years Smoked: 25 Smoked in Last 30 Days: No e-Cigarette/Vaping Use: Never Used Second Hand Smoke Exposure: No Use of substances other than those prescribed or required for medical reasons: No Currently Displaying Signs/Symptoms of Drug Intoxication Withdrawal: No Have you been hit, kicked, punched, or otherwise hurt by someone within the past year? If so, by whom?: No Do you feel safe in your current relationship?: Yes Is there a partner from a previous relationship who is making you feel unsafe now?: No Are you made to feel afraid or neglected: No [facility] Practices: Advance Directives: Yes Advance Directives on File: Yes Advance Directives Date on File: 12/16/20 Do you have a plan to hurt others: No Plan Recently lost weight without trying: No Nutrition Risks: No Nutritional Risk Patient : No : No Poor oral hygiene: Yes service: No Current occupational status: disabled Cognitive needs: No Hearing needs: No Vision needs: Yes Meds Allergies Allergy/AdvReac Type Severity Reaction Status Date / Time gabapentin Allergy Mild Anxiety Verified 09/27/24 19:09 morphine [MORPHINE] Allergy Unknown ANAPHALAXIS, Verified 09/27/24 19:09 anaphylaxis propofol [From Diprivan] Allergy Anaphylaxis Verified 09/27/24 19:09 Active Medications: Current Medications Albuterol Sulfate (Albuterol Sulfate (0.083%) 2.5 Mg/3 Ml Vial.Neb) 2.5 mg INHALE Q3H PRN PRN Reason: wheezing Albuterol/Ipratropium (Albuterol/Iprat 2.5/0.5mg 3 Ml Ampul.Neb) 3 ml INHALE Q6H BEN Last Admin: 09/30/24 11:31 Dose: 3 ml Clonazepam (Clonazepam 0.5 Mg Tablet) 0.5 mg PO BID PRN PRN Reason: Anxiety Last Admin: 09/30/24 14:38 Dose: 0.5 mg Clonazepam (Clonazepam 1 Mg Tablet) 1 mg PO DAILY BEN Last Admin: 09/30/24 09:50 Dose: 1 mg Diltiazem HCl (Diltiazem Hcl Cd 240 Mg Cap.Er.Deg) 240 mg PO DAILY BEN; Protocol Last Admin: 09/30/24 09:50 Dose: 240 mg Fluticasone/Umeclidinium/Vilanterol (Fluticasone/Umeclidinium/Vilanterol 100/62.5/25 Blst.W.Dev) 1 puff INHALE DAILY BEN Last Admin: 09/30/24 11:32 Dose: 1 puff Furosemide (Furosemide 20 Mg Tablet) 20 mg PO BID BEN; Protocol Last Admin: 09/30/24 09:50 Dose: 20 mg Heparin Sodium (Porcine) (Heparin Sodium,Porcine 5,000 Unit/Ml Vial) 5,000 unit SUBCUT Q8H [facility] Last Admin: 09/30/24 11:54 Dose: 5,000 unit Doxycycline Hyclate 100 mg/ (Sodium Chloride) 250 mls @ 166.67 mls/hr IV Q12H [facility] Last Infusion: 09/30/24 14:27 Dose: Infused Nystatin (Nystatin Powder 15 Gm Bottle) 1 appl TOPICAL BID [facility]; Protocol Last Admin: 09/30/24 09:50 Dose: 1 appl Omeprazole (Omeprazole 20 Mg Capsule.Dr) 20 mg PO DAILY@0630 [facility] Last Admin: 09/30/24 06:46 Dose: 20 mg Oxycodone HCl (Oxycodone Hcl Immed Release 5 Mg Tablet) 20 mg PO Q6H PRN PRN Reason: Pain, Severe (Pain Scale 7-10) Last Admin: 09/30/24 10:40 Dose: 20 mg Prednisone (Prednisone 20 Mg Tablet) 40 mg PO DAILY [facility] Last Admin: 09/30/24 09:50 Dose: 40 mg Temazepam (Temazepam 15 Mg Capsule) 30 mg PO BEDTIME PRN PRN Reason: Sleep Last Admin: 09/29/24 23:34 Dose: 30 mg Home Medications ?Medication ?Instructions ?Recorded ?Confirmed ?Last Taken ?Type theophylline 400 mg 400 mg PO DAILY 01/18/23 09/28/24 09/27/24 History capsule,extended release 24 hr (Roque-24) fluticasone fur. 100 mcg-umeclid 1 ea inhalation DAILY 04/24/24 09/28/24 09/27/24 History 62.5 mcg-vilant 25 mcg inhalat.powder (Trelegy Ellipta) cholecalciferol (vitamin D3) 50 50 mcg PO DAILY 05/21/24 09/28/24 09/27/24 History mcg (2,000 unit) tablet clonazepam 0.5 mg tablet 0.5 mg PO BID PRN Anxiety 05/21/24 09/28/24 Unknown History temazepam 30 mg capsule 30 mg PO BEDTIME PRN Sleep 05/21/24 09/28/24 09/27/24 History acetaminophen 500 mg tablet 1,000 mg PO TID PRN Pain 09/28/24 09/28/24 Unknown History cephalexin 500 mg capsule 500 mg PO QID 09/28/24 Unknown History clonazepam 1 mg tablet 1 mg PO DAILY 09/28/24 09/28/24 09/27/24 History meloxicam 15 mg tablet 15 mg PO DAILY 09/28/24 09/28/24 09/27/24 History omeprazole 20 mg tablet,delayed 20 mg PO DAILY@0630 09/28/24 09/28/24 09/27/24 History release oxycodone 5 mg tablet 10 mg PO 5XD 09/28/24 09/28/24 09/27/24 History Physical Exam Vital Signs: Vital Signs: Last Vital Signs Temp 97.0 F 09/30/24 11:02 Pulse 59 09/30/24 11:36 Resp 18 09/30/24 11:36 BP 131/64 09/30/24 11:02 Pulse Ox 98 09/30/24 11:02 O2 Del Method Nasal Cannula 09/30/24 11:02 O2 Flow Rate 4 09/30/24 11:02 FiO2 35 09/28/24 12:00 Oxygen Flow Rate 8 09/30/24 00:00 BMI result Body Mass Index 52.9 Const: General: cooperative, healthy appearing, comfortable and in distress mild Skin: Other: Right axillary area has an opening with a little bit of purulent drainage coming around the packing but there is a moderate about 10 x 10 cm indurated firm area mildly pink does larger than before. Tender as well. Question underlying abscess Results Labs 09/30/24 06:43 09/30/24 06:43 Labs: Abnormal lab results 09/29/24 09/30/24 Range/Units 18:58 06:43 WBC 12.2 H (4.8-10.8) X10*3/uL RBC 3.47 L (4.20-5.50) X10*6/uL Hgb 8.6 L (12.0-16.0) g/dl Hct 28.7 L (37.0-47.0) % MCH 24.8 L (27.0-33.0) pg MCHC 30.0 L (31.0-35.0) g/dl Immature Gran % (Auto) 1.0 H (0.0-0.4) % Neut % (Auto) 76.8 H (45-73) % Lymph % (Auto) 14.3 L (20-40) % Abs Immat Gran (auto) 0.12 H (0.00-0.03) X10*3/uL Absolute Neuts (auto) 9.3 H (2.0-8.3) x10*3/uL Carbon Dioxide 39 H (22-29) mmol/L Anion Gap 11 L (12-20) BUN 25 H (9-16) mg/dL Random Glucose 173 H (60-115) mg/dL Calcium 8.2 L (8.4-10.2) mg/dL Vancomycin Trough 24.1 H (10.0-20.0) mcg/mL Short CBC 09/30/24 Range/Units 06:43 WBC 12.2 H (4.8-10.8) X10*3/uL Hgb 8.6 L (12.0-16.0) g/dl Hct 28.7 L (37.0-47.0) % Plt Count 222 (160-400) X10*3/uL BMP 09/29/24 09/30/24 09/30/24 18:58 06:43 06:43 Sodium 144 Potassium 3.8 Chloride 98 Carbon Dioxide 39 H BUN 25 H Creatinine 0.87 Cancelled 0.89 Calcium 8.2 L All other labs normal. Imaging Additional studies: Patient: Brianne Chaudhary MR#: [id number] : 1960 Acct:[id number] Age/Sex: 64 / F ADM Date: 09/27/24 Loc: HO.ED Attending Dr: Ordering Physician: Branden Monge MD Date of Service: 09/27/24 Procedure(s): US extremity nonvascular Accession Number(s): [id number] cc: Branden Monge MD; Physician,Unknown ~ CLINICAL HISTORY: Right axillary abscess Ultrasound right axilla Comparison: None Findings: A 1 cm x 1 cm x 1 cm complex hypoechoic fluid collection demonstrated with no internal blood flow. Impression: Findings consistent with 1 cm right axillary abscess. This document has been electronically signed by: Fabiola Blair MD on 09/27/2024 23:02:10 Dictated By: Fabiola Blair MD Signed By: <Electronically signed by Fabiola Blair MD in [place]> 09/27/242302 DD/ 01 TD/TT: 09/27/242301 Finance Administrator: Report Number: [id number]: Total DLP = 820.00 mGy-cm CLINICAL HISTORY: Right axillary abscess and mass CT chest with contrast Comparison: Chest x-ray from 09/27/2024 Findings: Right axillary fluid collection and/or abscess measures 1.5 x 2.9 x 4.3 cm (image 75 of series 6). Adjacent inflammatory stranding and fluid may reflect combination of cellulitis and phlegmonous change. Small left pleural effusion. No pneumothorax mild bibasilar atelectasis/pneumonitis moderate emphysematous changes including anterior aspect of the right lung. Motion artifacts noted. Mild fat deposition of the imaged liver. Perinephric stranding with motion artifacts of the imaged abdomen. Vascular and valve calcifications are noted. Four point cm diameter and prominence of the main pulmonary artery as can be seen with pulmonary hypertension. Moderate cardiomegaly with multi chamber enlargement of the heart. 1.5 cm hemangioma of the T10 vertebral body nonaggressive sclerosis likely due to bone island in T9 vertebral body. Endplate sclerosis is multifocal. Mild vertebral height losses appear old/chronic. Degenerative changes include facet arthropathy. Mild deformity of the sternum and manubrium appear old IMPRESSION: 1. Abnormal fluid in the right axilla concerning for comminution of the abscess and adjacent cellulitis. 2. Mild bibasilar atelectasis/pneumonitis, with small left pleural effusion This document has been electronically signed by: Dino Jacob MD on 09/28/2024 00:32:22 Dictated By: Dino Jacob MD Signed By: <Electronically signed by Dino Jacob MD in [place]> 09/28/2432 DD/ TD/TT: 09/28/2431 Finance Administrator: Assessment and Plan (1) Abscess of right axilla: Status: Acute Plan Right axillary mass most likely underlying abscess deep not draining plan to bring to the OR and carry out exploration and drainage. Packing as needed. Continue with antibiotics. We will do but deep cultures. Patient understands and agrees with the above plan Procedures Date of Service Date of Service: 09/30/24
--- NOTE | 2024-09-30 15:30 | HO.ANESPROP2 ---
[facility] Active Problems Active Problems: All Active Problems Abscess of right axilla (Acute) Acute respiratory failure with hypoxia and hypercarbia (Acute) Acute respiratory failure with hypercapnia (Acute) Cellulitis of axilla (Acute) Dysuria (Acute) Open thigh wound (Acute) Lower back pain (Acute) Chronic kidney disease, stage 3 (Acute) Metabolic alkalosis (Acute) Hyperkalemia (Acute) Herpes zoster (Acute) Hyperglycemia (Acute) Crohn disease (Acute) Acute on chronic heart failure with preserved ejection fraction (HFpEF) (Acute) Chronic anemia (Acute) Acute exacerbation of chronic obstructive pulmonary disease (Acute) Hypercarbia (Acute) Peripheral edema (Acute) Shortness of breath (Acute) Chronic hypoxic respiratory failure (Acute) Thrush (Acute) Edema (Acute) Open fracture of right femur with delayed healing (Acute) Anemia (Acute) Non-healing wound of right lower extremity (Acute) Abdominal obesity (Acute) BMI 50.0-59.9, adult (Acute) PTSD (post-traumatic stress disorder) (Acute) Anxiety (Acute) Acute on chronic respiratory failure with hypoxia and hypercapnia (Acute) Paroxysmal atrial fibrillation (Acute) Hypoventilation associated with obesity (Acute) Pickwickian syndrome (Acute) Opioid use disorder (Acute) Past Medical History Medical History VERN (acute kidney injury) COPD (chronic obstructive pulmonary disease) Enterococcus faecalis infection MSSA (methicillin susceptible Staphylococcus aureus) MRSA (methicillin resistant staph aureus) culture positive Encounter for management of wound VAC Chronic osteomyelitis Hypertension Iron deficiency anemia COPD (chronic obstructive pulmonary disease) Femur fracture Crohn's colitis Morbid obesity due to excess calories Closed tibia fracture Acute on chronic respiratory failure with hypoxia and hypercapnia Nonrheumatic mitral (valve) stenosis Paroxysmal atrial fibrillation Dyspnea Hypoventilation associated with obesity Pickwickian syndrome Chronic hypercapnic respiratory failure Opioid use disorder Family History Family History Other Adopted Family history of problems with anesthesia: No Surgical History Surgical History Hx of cholecystectomy History of open reduction and internal fixation (ORIF) procedure Status post open reduction and internal fixation (ORIF) of fracture Recent surgical procedure on lower extremity History of Problems with Anesthesia: No Social History Social History Household Members: Spouse and Children Household Members Other:: , Hoa. Daughter Carolyn, 21. Daughter's Boyfriend, 22. Piliice, 21 Housing: House Do you presently have visiting nurse or other home services: Yes (wound care) Alcohol intake: never Patient Tobacco Use Status: Former Tobacco user Years Smoked: 25 Smoked in Last 30 Days: No e-Cigarette/Vaping Use: Never Used Second Hand Smoke Exposure: No Use of substances other than those prescribed or required for medical reasons: No Currently Displaying Signs/Symptoms of Drug Intoxication Withdrawal: No Have you been hit, kicked, punched, or otherwise hurt by someone within the past year? If so, by whom?: No Do you feel safe in your current relationship?: Yes Is there a partner from a previous relationship who is making you feel unsafe now?: No Are you made to feel afraid or neglected: No Religion Healthcare Practices: Advance Directives: Yes Advance Directives on File: Yes Advance Directives Date on File: 12/16/20 Do you have a plan to hurt others: No Plan Recently lost weight without trying: No Nutrition Risks: No Nutritional Risk Patient : No : No Poor oral hygiene: Yes service: No Current occupational status: disabled Cognitive needs: No Hearing needs: No Vision needs: Yes Meds Allergies Allergy/AdvReac Type Severity Reaction Status Date / Time gabapentin Allergy Mild Anxiety Verified 09/27/24 19:09 morphine [MORPHINE] Allergy Unknown ANAPHALAXIS, Verified 09/27/24 19:09 anaphylaxis propofol [From Diprivan] Allergy Anaphylaxis Verified 09/27/24 19:09 Active Medications: Current Medications Albuterol Sulfate (Albuterol Sulfate (0.083%) 2.5 Mg/3 Ml Vial.Neb) 2.5 mg INHALE Q3H PRN PRN Reason: wheezing Albuterol/Ipratropium (Albuterol/Iprat 2.5/0.5mg 3 Ml Ampul.Neb) 3 ml INHALE Q6H BEN Last Admin: 09/30/24 11:31 Dose: 3 ml Clonazepam (Clonazepam 0.5 Mg Tablet) 0.5 mg PO BID PRN PRN Reason: Anxiety Last Admin: 09/30/24 14:38 Dose: 0.5 mg Clonazepam (Clonazepam 1 Mg Tablet) 1 mg PO DAILY [facility] Last Admin: 09/30/24 09:50 Dose: 1 mg Diltiazem HCl (Diltiazem Hcl Cd 240 Mg Cap.Er.Deg) 240 mg PO DAILY [facility]; Protocol Last Admin: 09/30/24 09:50 Dose: 240 mg Fluticasone/Umeclidinium/Vilanterol (Fluticasone/Umeclidinium/Vilanterol 100/62.5/25 Blst.W.Dev) 1 puff INHALE DAILY [facility] Last Admin: 09/30/24 11:32 Dose: 1 puff Furosemide (Furosemide 20 Mg Tablet) 20 mg PO BID [facility]; Protocol Last Admin: 09/30/24 09:50 Dose: 20 mg Heparin Sodium (Porcine) (Heparin Sodium,Porcine 5,000 Unit/Ml Vial) 5,000 unit SUBCUT Q8H [facility] Last Admin: 09/30/24 11:54 Dose: 5,000 unit Doxycycline Hyclate 100 mg/ (Sodium Chloride) 250 mls @ 166.67 mls/hr IV Q12H [facility] Last Infusion: 09/30/24 14:27 Dose: Infused Nystatin (Nystatin Powder 15 Gm Bottle) 1 appl TOPICAL BID [facility]; Protocol Last Admin: 09/30/24 09:50 Dose: 1 appl Omeprazole (Omeprazole 20 Mg Capsule.Dr) 20 mg PO DAILY@0630 [facility] Last Admin: 09/30/24 06:46 Dose: 20 mg Oxycodone HCl (Oxycodone Hcl Immed Release 5 Mg Tablet) 20 mg PO Q6H PRN PRN Reason: Pain, Severe (Pain Scale 7-10) Last Admin: 09/30/24 10:40 Dose: 20 mg Prednisone (Prednisone 20 Mg Tablet) 40 mg PO DAILY [facility] Last Admin: 09/30/24 09:50 Dose: 40 mg Temazepam (Temazepam 15 Mg Capsule) 30 mg PO BEDTIME PRN PRN Reason: Sleep Last Admin: 09/29/24 23:34 Dose: 30 mg Home Medications ?Medication ?Instructions ?Recorded ?Confirmed ?Last Taken ?Type theophylline 400 mg 400 mg PO DAILY 01/18/23 09/28/24 09/27/24 History capsule,extended release 24 hr (Roque-24) fluticasone fur. 100 mcg-umeclid 1 ea inhalation DAILY 04/24/24 09/28/24 09/27/24 History 62.5 mcg-vilant 25 mcg inhalat.powder (Trelegy Ellipta) cholecalciferol (vitamin D3) 50 50 mcg PO DAILY 05/21/24 09/28/24 09/27/24 History mcg (2,000 unit) tablet clonazepam 0.5 mg tablet 0.5 mg PO BID PRN Anxiety 05/21/24 09/28/24 Unknown History temazepam 30 mg capsule 30 mg PO BEDTIME PRN Sleep 05/21/24 09/28/24 09/27/24 History acetaminophen 500 mg tablet 1,000 mg PO TID PRN Pain 09/28/24 09/28/24 Unknown History cephalexin 500 mg capsule 500 mg PO QID 09/28/24 Unknown History clonazepam 1 mg tablet 1 mg PO DAILY 09/28/24 09/28/24 09/27/24 History meloxicam 15 mg tablet 15 mg PO DAILY 09/28/24 09/28/24 09/27/24 History omeprazole 20 mg tablet,delayed 20 mg PO DAILY@0630 09/28/24 09/28/24 09/27/24 History release oxycodone 5 mg tablet 10 mg PO 5XD 09/28/24 09/28/24 09/27/24 History Exam Height,Weight and Vital Signs: Height 5 ft 2 in Weight 131.1 kg Last Vital Signs Temp 97.0 F 09/30/24 11:02 Pulse 59 09/30/24 11:36 Resp 18 09/30/24 11:36 BP 131/64 09/30/24 11:02 Pulse Ox 98 09/30/24 11:02 O2 Del Method Nasal Cannula 09/30/24 11:02 O2 Flow Rate 4 09/30/24 11:02 FiO2 35 09/28/24 12:00 Oxygen Flow Rate 8 09/30/24 00:00 Pertinent Lab Results Pertinent Lab Results: Laboratory Tests 09/27/24 09/27/24 09/27/24 20:24 20:29 20:30 WBC 13.8 H RBC 4.12 L Hgb 10.2 L Hct 35.8 L MCV 86.9 MCH 24.8 L MCHC 28.5 L RDW 15.4 Plt Count 222 MPV 10.1 Immature Gran % (Auto) 1.3 H Neut % (Auto) 83.4 H Lymph % (Auto) 5.5 L [place] % (Auto) 8.0 Eos % (Auto) 1.4 Baso % (Auto) 0.4 Lymph # (Auto) 0.8 L [place] # (Auto) 1.1 Eos # (Auto) 0.2 Baso # (Auto) 0.1 Abs Immat Gran (auto) 0.18 H Absolute Neuts (auto) 11.5 H Absolute Nucleated RBC 0.020 H Nucleated RBC % (auto) 0.1 Smear Tech's Comments PT 11.2 INR 1.0 O2 Saturation ABG pH at Pt Temp ABG pCO2 at Pt Temp ABG pO2 at Pt Temp ABG HCO3 ABG Base Excess (Actual) VBG pH 7.65 H* VBG pCO2 30 VBG pO2 108 VBG HCO3 33 H VBG O2 Saturation 99.0 VBG Base Excess 12.6 Sodium 145 Potassium 5.1 Chloride 104 Carbon Dioxide 28 Anion Gap 18 BUN 22 H Creatinine 1.09 Estim Creat Clear Calc 69.0 Estimated GFR 51 Random Glucose 111 Lactic Acid 1.3 Calcium 9.2 Phosphorus 4.8 H Magnesium 2.5 Total Bilirubin 0.2 Direct Bilirubin < 0.2 AST 22 ALT < 6 Alkaline Phosphatase 119 H Troponin I High Sens 19.9 H D C-Reactive Protein 11.49 H B-Natriuretic Peptide 143 H Total Protein 8.1 H Albumin 3.7 Vancomycin Trough Random Vancomycin Ethyl Alcohol < 10 Influenza Type A (PCR) Influenza Type B (PCR) RSV RNA Qual (PCR) SARS-CoV-2 RNA (RT-PCR) 09/28/24 09/28/24 09/28/24 00:54 02:48 05:45 WBC 12.5 H RBC 3.46 L Hgb 8.5 L Hct 29.5 L MCV 85.3 MCH 24.6 L MCHC 28.8 L RDW 15.2 Plt Count 204 MPV 10.2 Immature Gran % (Auto) 0.6 H Neut % (Auto) 95.0 H Lymph % (Auto) 2.1 L [place] % (Auto) 1.8 L Eos % (Auto) 0.2 Baso % (Auto) 0.3 Lymph # (Auto) 0.3 L [place] # (Auto) 0.2 Eos # (Auto) 0.0 Baso # (Auto) 0.0 Abs Immat Gran (auto) 0.08 H Absolute Neuts (auto) 11.9 H Absolute Nucleated RBC 0.000 Nucleated RBC % (auto) 0.0 Smear Tech's Comments VERIFIED PT INR O2 Saturation 91.0 ABG pH at Pt Temp 7.38 ABG pCO2 at Pt Temp 88 H* ABG pO2 at Pt Temp 63 L ABG HCO3 52 H ABG Base Excess (Actual) 24.0 VBG pH VBG pCO2 VBG pO2 VBG HCO3 VBG O2 Saturation VBG Base Excess Sodium 147 H Potassium 4.0 D Chloride 100 Carbon Dioxide 38 H Anion Gap 13 BUN 19 H Creatinine 1.12 Estim Creat Clear Calc 67.2 Estimated GFR 49 Random Glucose 177 H Lactic Acid Calcium 8.7 Phosphorus Magnesium 2.1 Total Bilirubin 0.4 Direct Bilirubin AST 13 ALT < 6 Alkaline Phosphatase 94 Troponin I High Sens C-Reactive Protein B-Natriuretic Peptide Total Protein 6.7 Albumin 3.3 L Vancomycin Trough Random Vancomycin Ethyl Alcohol Influenza Type A (PCR) NEGATIVE Influenza Type B (PCR) NEGATIVE RSV RNA Qual (PCR) NEGATIVE SARS-CoV-2 RNA (RT-PCR) NEGATIVE 09/28/24 09/29/24 09/29/24 05:46 07:02 07:02 WBC 12.6 H RBC 3.34 L Hgb 8.3 L Hct 28.0 L MCV 83.8 MCH 24.9 L MCHC 29.6 L RDW 14.9 Plt Count 200 MPV 10.2 Immature Gran % (Auto) 0.6 H Neut % (Auto) 90.8 H Lymph % (Auto) 4.4 L [place] % (Auto) 4.0 Eos % (Auto) 0.0 Baso % (Auto) 0.2 Lymph # (Auto) 0.6 L [place] # (Auto) 0.5 Eos # (Auto) 0.0 Baso # (Auto) 0.0 Abs Immat Gran (auto) 0.08 H Absolute Neuts (auto) 11.4 H Absolute Nucleated RBC 0.000 Nucleated RBC % (auto) 0.0 Smear Tech's Comments VERIFIED PT INR O2 Saturation ABG pH at Pt Temp ABG pCO2 at Pt Temp ABG pO2 at Pt Temp ABG HCO3 ABG Base Excess (Actual) VBG pH 7.54 H VBG pCO2 56 VBG pO2 83 VBG HCO3 49 H VBG O2 Saturation 100.0 VBG Base Excess 24.0 Sodium 143 Potassium 4.0 Chloride 97 Carbon Dioxide 41 H* Anion Gap 9 L BUN 27 H Creatinine 1.03 1.02 Estim Creat Clear Calc 72.4 Estimated GFR Random Glucose Lactic Acid Calcium Phosphorus Magnesium Total Bilirubin Direct Bilirubin AST ALT Alkaline Phosphatase Troponin I High Sens 24.5 H C-Reactive Protein B-Natriuretic Peptide Total Protein Albumin Vancomycin Trough Random Vancomycin Ethyl Alcohol Influenza Type A (PCR) Influenza Type B (PCR) RSV RNA Qual (PCR) SARS-CoV-2 RNA (RT-PCR) 09/29/24 09/29/24 09/29/24 07:02 07:02 18:58 WBC RBC Hgb Hct MCV MCH MCHC RDW Plt Count MPV Immature Gran % (Auto) Neut % (Auto) Lymph % (Auto) [place] % (Auto) Eos % (Auto) Baso % (Auto) Lymph # (Auto) [place] # (Auto) Eos # (Auto) Baso # (Auto) Abs Immat Gran (auto) Absolute Neuts (auto) Absolute Nucleated RBC Nucleated RBC % (auto) Smear Tech's Comments PT INR O2 Saturation ABG pH at Pt Temp ABG pCO2 at Pt Temp ABG pO2 at Pt Temp ABG HCO3 ABG Base Excess (Actual) VBG pH VBG pCO2 VBG pO2 VBG HCO3 VBG O2 Saturation VBG Base Excess Sodium Potassium Chloride Carbon Dioxide Anion Gap BUN Creatinine 0.87 Estim Creat Clear Calc 73.1 84.9 Estimated GFR 54 55 > 60 Random Glucose 220 H Lactic Acid Calcium 8.2 L Phosphorus Magnesium Total Bilirubin Direct Bilirubin AST ALT Alkaline Phosphatase Troponin I High Sens C-Reactive Protein B-Natriuretic Peptide Total Protein Albumin Vancomycin Trough 27.1 H* 24.1 H Random Vancomycin Ethyl Alcohol Influenza Type A (PCR) Influenza Type B (PCR) RSV RNA Qual (PCR) SARS-CoV-2 RNA (RT-PCR) 09/30/24 09/30/24 09/30/24 06:43 06:43 06:43 WBC 12.2 H RBC 3.47 L Hgb 8.6 L Hct 28.7 L MCV 82.7 MCH 24.8 L MCHC 30.0 L RDW 14.9 Plt Count 222 MPV 9.6 Immature Gran % (Auto) 1.0 H Neut % (Auto) 76.8 H Lymph % (Auto) 14.3 L [place] % (Auto) 7.0 Eos % (Auto) 0.7 Baso % (Auto) 0.2 Lymph # (Auto) 1.7 [place] # (Auto) 0.9 Eos # (Auto) 0.1 Baso # (Auto) 0.0 Abs Immat Gran (auto) 0.12 H Absolute Neuts (auto) 9.3 H Absolute Nucleated RBC 0.000 Nucleated RBC % (auto) 0.0 Smear Tech's Comments PT INR O2 Saturation ABG pH at Pt Temp ABG pCO2 at Pt Temp ABG pO2 at Pt Temp ABG HCO3 ABG Base Excess (Actual) VBG pH VBG pCO2 VBG pO2 VBG HCO3 VBG O2 Saturation VBG Base Excess Sodium 144 Potassium 3.8 Chloride 98 Carbon Dioxide 39 H Anion Gap 11 L BUN 25 H Creatinine Cancelled 0.89 Estim Creat Clear Calc Cancelled 83.0 Estimated GFR Cancelled Random Glucose Lactic Acid Calcium Phosphorus Magnesium Total Bilirubin Direct Bilirubin AST ALT Alkaline Phosphatase Troponin I High Sens C-Reactive Protein B-Natriuretic Peptide Total Protein Albumin Vancomycin Trough Random Vancomycin Ethyl Alcohol Influenza Type A (PCR) Influenza Type B (PCR) RSV RNA Qual (PCR) SARS-CoV-2 RNA (RT-PCR) 09/30/24 06:43 WBC RBC Hgb Hct MCV MCH MCHC RDW Plt Count MPV Immature Gran % (Auto) Neut % (Auto) Lymph % (Auto) [place] % (Auto) Eos % (Auto) Baso % (Auto) Lymph # (Auto) [place] # (Auto) Eos # (Auto) Baso # (Auto) Abs Immat Gran (auto) Absolute Neuts (auto) Absolute Nucleated RBC Nucleated RBC % (auto) Smear Tech's Comments PT INR O2 Saturation ABG pH at Pt Temp ABG pCO2 at Pt Temp ABG pO2 at Pt Temp ABG HCO3 ABG Base Excess (Actual) VBG pH VBG pCO2 VBG pO2 VBG HCO3 VBG O2 Saturation VBG Base Excess Sodium Potassium Chloride Carbon Dioxide Anion Gap BUN Creatinine Estim Creat Clear Calc Estimated GFR > 60 Random Glucose 173 H Lactic Acid Calcium 8.2 L Phosphorus Magnesium Total Bilirubin Direct Bilirubin AST ALT Alkaline Phosphatase Troponin I High Sens C-Reactive Protein B-Natriuretic Peptide Total Protein Albumin Vancomycin Trough Random Vancomycin 17.8 Ethyl Alcohol Influenza Type A (PCR) Influenza Type B (PCR) RSV RNA Qual (PCR) SARS-CoV-2 RNA (RT-PCR) Airway Mallampati Class: III TM Dist: >3cm Neck ROM: Full Assessment and Plan Assessment Anesthesia Assessment: Anesthesia Plan Discussed and Chart Reviewed Final Anesthetic Review Family History of Problems with Anesthesia: No History of Problems with Anesthesia: No NPO: Yes ASA Class: III and Emergency Final Preanesthetic Review: No Changes in Pt Med Stat, Meds/Allgs Chart Reviewed, Consent Obtained/Reviewed and Anes Risks/Benef Reviewed Patient Risk: Intermediate Procedure Risk: Low Anesthetic Plan Anesthetic Plan: TIVA Disposition: Standard PACU
[2024-09-30] MEDS: fentaNYL citrate/PF 100 MCG/2 ML VIAL 50 MCG IVPUSH (17:21)
--- NOTE | 2024-09-30 17:21 | W.PM.OPN ---
Operative Note Operative Note Date of Service: 09/30/24 Narrative: Preop diagnosis--right axillary abscess Postop diagnosis--right axillary abscess Surgeon--Ekta Anesthesia--LMA general Procedure--incision and drainage of right axillary abscess History--patient with multiple medical problems specifically respiratory issues with developing axillary abscess incision and drainage done in the emergency room but area progressed with increasing phlegmon and mass. Comes to the OR now to have drainage. Findings---right axillary pocket of thickened purulent material and phlegmon tissue. Procedure-- Patient was brought to the operative room under Anesthesia guidance was sedated in the LMA placed. Right axillary area was prepped and draped in standard surgical fashion. The incision that was already present was made little bigger with the scalpel and using a Gladis clamp and finger dissection the phlegmon tissue was dissected and opened up revealing some thickened purulent material and cultures were taken. The area was broken up manually and irrigated. Cautery was used to get some hemostasis and then compression of the deep area was carried out manually for more hemostasis. Local was used and the area packed with 1 role of gauze. Dry dressings placed above. At the end of the case all sponge instrument needle counts were correct. Estimated blood loss was about 15 cc and culture sent for Gram stain aerobic and anaerobic. Patient was extubated returned stable to the recovery room
[2024-09-30] MEDS: Ampicillin Sodium/Sulbactam Na 3 GM in 0.9 % Sodium Chloride 100 ML IV (18:16)
[2024-09-30] MEDS: Temazepam 15 MG CAPSULE 30 MG PO (19:52)
[2024-09-30] MEDS: HYDROmorphone HCl 0.5 MG/0.5 ML SYRINGE IVPUSH (19:53)
[2024-10-01] VITALS: BP 143/64; PULSE 71; RESP 18; TEMP 37.1; O2SAT 96
[2024-10-01] MEDS: Ampicillin Sodium/Sulbactam Na 3 GM in 0.9 % Sodium Chloride 100 ML IV ×3 (00:48→16:22)
[2024-10-01 05:44] VITALS: BP 138/95; PULSE 76; RESP 18; TEMP 36.6; O2SAT 98
[2024-10-01] MEDS: Heparin Sodium,Porcine 5,000 UNIT/ML VIAL 5000 UNIT SUBCUT ×2 (06:34→10:00)
[2024-10-01] MEDS: oxyCODONE HCl Immed Release 5 MG TABLET 20 MG PO ×3 (06:34→21:07)
[2024-10-01] MEDS: Omeprazole 20 MG CAPSULE.DR PO (06:34)
[2024-10-01 07:37] LABS: Creatinine Clr Calc Pharmacy 98.6; Estimated Glomerular Filt Rate > 60
[2024-10-01 08:00] VITALS: BP 149/69; PULSE 53; RESP 16; TEMP 36.5; O2SAT 95; BMI 52.7
[2024-10-01 08:12] LABS: MANUAL DIFF FLAG NO
[2024-10-01 08:17] LABS: Basophils Percent Auto 0.2 % (0-2); Hematocrit 28.6 % (37.0-47.0); Hemoglobin 8.4 g/dl (12.0-16.0); Imm Gran Abs Auto 0.22 X10*3/uL (0.00-0.03); Imm Gran Pct Auto 1.3 % (0.0-0.4); Lymphocytes Absolute Auto 0.7 X10*3/uL (1.2-4.9); Mean Corpuscular HGB Conc 29.4 g/dl (31.0-35.0); Mean Corpuscular Hemoglobin 24.5 pg (27.0-33.0); Mean Corpuscular Volume 83.4 fL (80.0-98.0); Mean Platelet Volume 10.3 fL (9.4-12.3); Monocytes Absolute Auto 0.8 X10*3/uL (0.1-1.2); Monocytes Percent Auto 4.8 % (2-11); Neutrophils Absolute Auto 15.1 x10*3/uL (2.0-8.3); Neutrophils Percent Auto 89.7 % (45-73); Platelet Count 235 X10*3/uL (160-400); Red Blood Count 3.43 X10*6/uL (4.20-5.50); Red Cell Distribution Width 14.8 % (11.0-16.0); White Blood Count 16.8 X10*3/uL (4.8-10.8)
[2024-10-01] MEDS: Furosemide 20 MG TABLET PO ×2 (09:14→20:22)
[2024-10-01] MEDS: Nystatin Powder 15 GM BOTTLE 1 APPL TOPICAL (09:14)
[2024-10-01] MEDS: Doxycycline Hyclate 100 MG in 0.9 % Sodium Chloride 250 ML 166.67 MG IV ×2 (09:14→20:22)
[2024-10-01] MEDS: clonazePAM 1 MG TABLET PO (09:14)
[2024-10-01] MEDS: dilTIAZem HCL CD 240 MG CAP.ER.DEG PO (09:14)
--- NOTE | 2024-10-01 09:21 | PC.NURSE ---
Addendum entered by Reyes Flores RN 10/01/24 14:32: messaged [phone] Sample - doesnt feel safe being d/c'ed. she is bleeding through her dressings and is experiencing 10/10 pain. I am giving PRN oxy for pain now. Can I give 0.5mg of dilaudid early? She is on suboxone at home Original Note: Informed MD and pt of low HR and protocol for Dilt administration. per pt she takes Dilt at home even with jazmyn HR's. Per MD ok to give.
[2024-10-01 11:36] VITALS: BP 138/57; PULSE 55; RESP 16; TEMP 36.7; O2SAT 99
--- NOTE | 2024-10-01 12:02 | P.DS_ITS ---
DS: Providers Provider Date of Service: 10/02/24 Date of admission: 09/28/24 03:00 Date of discharge: 10/02/24 Primary care physician: Sandra Diego MD Consults: 09/28/24 08:16 Consult to Wound Care Routine Reason for consultation: excoriation in [place] 09/29/24 16:22 Consult to General Surgery Routine Consulting Provider: [facility] [place] General Surgeons Reason for consultation: Axillary abscess. 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 ?Patient presents to us via consult from the emergency room where she was seen this evening due to complaints of right axillary mass and discomfort. ?Patient reports having increased pain and discomfort over right axilla in the last 3-4 days.? She has been taking an antibiotic prescribed on an urgent care clinic (cephalexin) however no drainage was done at the time.? Her ER workup reveals a normotensive patient with a heart rate of 101, temperature 99 degrees F, respiratory rate of 26 and pulse ox 100% on non- rebreather mask on arrival subsequently placed on BiPAP per her home settings. ?Her ER workup reveals a white count of 13.8, H and H of 10 and 35 respectively, platelets of 222.? Her initial venous gas pH of 7.6, pCO2 of 30, PO2 of 108, HC03 of 33. ?Sodium 145, potassium 5.1, chloride 104, carbon dioxide 28, anion gap 18, BUN 22, creatinine 1.09, lactic acid 1.3.? Alk-phos 119, troponin 19.9, CRP 11.49, BNP 143.? Respiratory panel negative. ?Initial x-ray shows findings suggestive with mild congestive heart failure. ?She had an ultrasound of the axilla further worked up with a CT chest with contrast which shows an abnormal fluid collection in the right axillary area measuring 1.5 x 2.9 x 4.3 cm. It is reported that soon after coming back from CT, the patient deteriorated. The patient had been placed on full volume non-rebreather mask to have this study. Currently the patient denies any fever, has been applying some warm compresses to the area but no purulent material has been expressed out of it.? Her current pain level is 6/10, localized without any discomfort but she also states that she feels anxious because she takes Dilaudid 1 mg 4 times per day at home and she has not received any pain medications while in the ER. ?In addition she denies any more shortness of breath unusual, no chest pain, cough, sputum production, no increased swelling of her legs. ?I requested an ABG for further diagnosis.? This shows a pH of 7.38, pCO2 of 88, PaO2 of 63. ?Given risk of further decompensation, patient will be admitted to the ICU. I believe her hypercarbia resulted from iatrogenic oxygen poisoning as the patient was placed on non-rebreather air with full volume while she went to have the CT. Hospital course The patient was evaluated and treated for the following # Acute hypercarbic respiratory failure from oxygen induced hypercapnia. Placed on BiPAP in ICU overnight with significant improvement and treated as COPD exacerbation with Duonebs , Steroids along with BiPap when sleeping and IV diuresis with lasix. To be discharged home on her home inhalers and use of her AVAP machine. # Abscess of axilla Drained in ED and covered with IV antibiotics. seen by surgery who did surgical drainage in OR and packed the wound. Covered with IV Vancomycin and Zosyn , then Doxycycline IV and Unasyn. To be discharged on 1 more week of Doxycycline and Augmentin with a plan to follow with surgery as outpatient. VNA to do wound dressing at home. # Vancomycin toxicity , Elevated Level to 27 then trended down. no renal injury noted. # Acute Hypernatremia, Na improved to 143 prior to discharge. # Sacral wound . Wound care, local measures and Nystatin # PHysical deconditioning, PT eval # ALEKSEY/OHS: Continue nocturnal BiPAP Discharge plan Abscess treated with surgical drainage Continue Antibiotics for 1 more week Follow with dr Maloney in office or wound clinic VNA should help with dressing at home Use AVAP at bedtime and naps continue home inhalers Time Attestation Discharge Coordination Time (in mins): 43 Quality: Safe Use of Opioids Does Pt have an Active Cancer Diagnosis on the Problem List?: No Quality: Stroke Does the patient have a stroke diagnosis?: No Physical Exam Vital Signs: Vital Signs: Last Vital Signs Temp 98.0 F 10/01/24 11:36 Pulse 55 10/01/24 11:36 Resp 16 10/01/24 11:36 BP 138/57 L 10/01/24 11:36 Pulse Ox 99 10/01/24 11:36 O2 Del Method BiPAP 10/01/24 11:36 O2 Flow Rate 5 10/01/24 00:00 FiO2 35 09/28/24 12:00 Oxygen Flow Rate 8 09/30/24 00:00 BMI result Body Mass Index 52.7 Const: Other: Constitutional : Awake, interactive, morbidly obese, not in distress Neck : Normal inspection, Supple Cardiovascular : RRR, no JVP, trace bilateral lower extremity edema Respiratory : fair bilateral air entry, no crackles, scattered expiratory wheezes Gastrointestinal: soft, lax, Normal bowel sounds, Non tender Skin : Warm, Dry skin mainly LE with chronic changes , Rt axilla wound covered with dressing, have mild drainage, in dressing Neurological : Alert & oriented x3, No focal deficit DS: Data Data Completed and Pending Completed studies during hospitalization [Text1]: Procedures Assistance with Respiratory Ventilation, Less than 24 Consecutive Hours, Continuous Positive Airway Pressure (05/21/24) Insertion of Infusion Device into Left Cephalic Vein, Percutaneous Approach (02/19/22) Labs on day of discharge: Laboratory Results - last 24 hr 10/01/24 05:54 WBC 16.8 H RBC 3.43 L Hgb 8.4 L Hct 28.6 L MCV 83.4 MCH 24.5 L MCHC 29.4 L RDW 14.8 Plt Count 235 MPV 10.3 Immature Gran % (Auto) 1.3 H Neut % (Auto) 89.7 H Lymph % (Auto) 4.0 L [place] % (Auto) 4.8 Eos % (Auto) 0.0 Baso % (Auto) 0.2 Lymph # (Auto) 0.7 L [place] # (Auto) 0.8 Eos # (Auto) 0.0 Baso # (Auto) 0.0 Abs Immat Gran (auto) 0.22 H Absolute Neuts (auto) 15.1 H Absolute Nucleated RBC 0.000 Nucleated RBC % (auto) 0.0 Hold Purple Top SEE NOTE Creatinine 0.76 Estim Creat Clear Calc 98.6 Estimated GFR > 60 Preliminary micro results at discharge 09/30/24 16:45 Routine Culture - Preliminary Axilla Right Culture in progress. 09/27/24 20:24 Blood Culture - Preliminary Blood - Venous No growth after 48 hours. 09/27/24 20:08 Blood Culture - Preliminary Blood - Venous No growth after [address] scan - chest: Radiologist's impression: Ct chest IMPRESSION: 1. Abnormal fluid in the right axilla concerning for comminution of the abscess and adjacent cellulitis. 2. Mild bibasilar atelectasis/pneumonitis, with small left pleural effusion This document has been electronically signed by: Dino Jacob MD on 09/28/2024 00:32:22 Discharge Plan Discharge Anticipated Discharge Date/Time: 10/01/24 11:51 Patient Disposition: Home Health Service Discharge Diagnosis: Abscess Respiratory failure Referrals: Physical Therapy - [facility] [place] [Outside] - 1 Week (Physical therapy for strength and stability ) Sandra Diego MD [Primary Care Provider] - 1 Week Discharge Medications: New nystatin 100,000 unit/gram Powder 1 appl topical BID Qty: 30 0RF Protocol: Apply to: Apply to: sacral wound doxycycline monohydrate 100 mg capsule 100 mg PO BID Qty: 14 0RF amoxicillin-pot clavulanate 875-125 mg tablet 1 tab PO BID Qty: 14 0RF Continued diltiazem HCl 240 mg capsule,extended release 24 hr 240 mg PO DAILY Qty: 90 0RF furosemide [Lasix] 20 mg tablet 20 mg PO BID Qty: 60 0RF clonazepam 0.5 mg Tablet 0.5 mg PO BID PRN (Reason: Anxiety) temazepam 30 mg Capsule 30 mg PO BEDTIME PRN (Reason: Sleep) cholecalciferol (vitamin D3) 50 mcg (2,000 unit) Tablet 50 mcg PO DAILY omeprazole 20 mg tablet,delayed release (DR/EC) 20 mg PO DAILY@0630 meloxicam 15 mg Tablet 15 mg PO DAILY clonazepam 1 mg Tablet 1 mg PO DAILY acetaminophen 500 mg Tablet 1,000 mg PO TID PRN (Reason: Pain) oxycodone 5 mg tablet 10 mg PO 5XD Rx Instructions: Partial Fill upon patient request. Trelegy Ellipta 100-62.5-25 mcg blister with device 1 ea INHALATION DAILY Roque-24 400 mg capsule,extended release 24hr 400 mg PO DAILY Discontinued cephalexin 500 mg capsule 500 mg PO QID Discharge Orders: Discharge Order (Routine); Ordered 10/02/24 Ordered By: Jarret Das Diet: Low salt diet Activity on Discharge: As tolerated Stand Alone Forms: Patient Portal Discharge page Print Language: Libyan Care Plan Goals: Abscess treated with surgical drainage Continue Antibiotics for 1 more week Follow with dr Alvarez in office or wound clinic VNA should help with dressing at home Use AVAP at bedtime and naps continue home inhalers Health Concerns: Abscess COPD Plan of Treatment: Antibiotics Surgical follow up Assessment: as above
[2024-10-01] MEDS: HYDROmorphone HCl 0.5 MG/0.5 ML SYRINGE IVPUSH ×3 (12:34→18:10)
--- NOTE | 2024-10-01 13:30 | P.PNIM_ITS ---
Subjective Subjective Date of Service: 10/01/24 Interval History: seen and evaluated this morning reporting pain and drainage in axilla post drainage no fever or chills no other events Review of Systems Review of Systems: Yes all other systems are reviewed and are negative Physical Exam 2 Vital Signs: Vital Signs: Last Vital Signs Temp 98.0 F 10/01/24 11:36 Pulse 55 10/01/24 11:36 Resp 16 10/01/24 11:36 BP 138/57 L 10/01/24 11:36 Pulse Ox 99 10/01/24 11:36 O2 Del Method BiPAP 10/01/24 11:36 O2 Flow Rate 5 10/01/24 00:00 FiO2 35 09/28/24 12:00 Oxygen Flow Rate 8 09/30/24 00:00 BMI result Body Mass Index 52.7 Const: Other: Constitutional : Awake, interactive, morbidly obese, not in distress Neck : Normal inspection, Supple Cardiovascular : RRR, no JVP, trace bilateral lower extremity edema Respiratory : fair bilateral air entry, no crackles, scattered expiratory wheezes Gastrointestinal: soft, lax, Normal bowel sounds, Non tender Skin : Warm, Dry skin mainly LE with chronic changes , Rt axilla wound covered with dressing, have mild drainage, in dressing Neurological : Alert & oriented x3, No focal deficit Objective Data Active Medications Albuterol Sulfate (Albuterol Sulfate (0.083%) 2.5 Mg/3 Ml Vial.Neb) 2.5 mg INHALE Q3H PRN PRN Reason: wheezing Albuterol/Ipratropium (Albuterol/Iprat 2.5/0.5mg 3 Ml Ampul.Neb) 3 ml INHALE RQ6H BEN Last Admin: 10/01/24 11:18 Dose: Not Given Documented By: VINICIO Non-Admin Reason: pt refused Clonazepam (Clonazepam 0.5 Mg Tablet) 0.5 mg PO BID PRN PRN Reason: Anxiety Last Admin: 09/30/24 20:05 Dose: 0.5 mg Documented By: TONIO Clonazepam (Clonazepam 1 Mg Tablet) 1 mg PO DAILY [facility]EN Last Admin: 10/01/24 09:14 Dose: 1 mg Documented By: POPPY Diltiazem HCl (Diltiazem Hcl Cd 240 Mg Cap.Er.Deg) 240 mg PO DAILY BEN; Protocol Last Admin: 10/01/24 09:14 Dose: 240 mg Documented By: POPPY Fluticasone/Umeclidinium/Vilanterol (Fluticasone/Umeclidinium/Vilanterol 100/62.5 Blst.W.Dev) 1 puff INHALE DAILY [facility] Last Admin: 10/01/24 07:51 Dose: Not Given Documented By: VINICIO Non-Admin Reason: Patient Asleep Furosemide (Furosemide 20 Mg Tablet) 20 mg PO BID [facility]; Protocol Last Admin: 10/01/24 09:14 Dose: 20 mg Documented By: POPPY Heparin Sodium (Porcine) (Heparin Sodium,Porcine 5,000 Unit/Ml Vial) 5,000 unit SUBCUT Q8H [facility] Last Admin: 10/01/24 10:00 Dose: 5,000 unit Documented By: POPPY Hydromorphone HCl (Hydromorphone Hcl 0.5 Mg/0.5 Ml Syringe) 0.5 mg IVPUSH Q4H PRN; Protocol PRN Reason: Pain, Severe (Pain Scale 7-10) Last Admin: 10/01/24 12:34 Dose: 0.5 mg Documented By: POPPY Doxycycline Hyclate 100 mg/ (Sodium Chloride) 250 mls @ 166.67 mls/hr IV Q12H [facility] Last Infusion: 10/01/24 10:45 Dose: Infused Documented By: POPPY Ampicillin Sodium/Sulbactam (Sodium 3 gm/ Sodium Chloride) 100 mls @ 200 mls/hr IV Q8H [facility] Last Infusion: 10/01/24 10:00 Dose: Infused Documented By: POPPY Naloxone HCl (Naloxone Hcl 0.4 Mg/Ml Vial) 0.04 mg IVPUSH Q5M PRN PRN Reason: Excessive sedation or RR < 8 Nystatin (Nystatin Powder 15 Gm Bottle) 1 appl TOPICAL BID [facility]; Protocol Last Admin: 10/01/24 09:14 Dose: 1 appl Documented By: POPPY Omeprazole (Omeprazole 20 Mg Capsule.Dr) 20 mg PO DAILY@0630 [facility] Last Admin: 10/01/24 06:34 Dose: 20 mg Documented By: VANESSAZEB Oxycodone HCl (Oxycodone Hcl Immed Release 5 Mg Tablet) 20 mg PO Q6H PRN PRN Reason: Pain, Severe (Pain Scale 7-10) Last Admin: 10/01/24 06:34 Dose: 20 mg Documented By: TONIO Temazepam (Temazepam 15 Mg Capsule) 30 mg PO BEDTIME PRN PRN Reason: Sleep Last Admin: 09/30/24 19:52 Dose: 30 mg Documented By: TONIO Labs 10/01/24 05:54 10/01/24 05:54 Labs: Laboratory Results - last 24 hr 10/01/24 05:54 MCV 83.4 MCH 24.5 L MCHC 29.4 L RDW 14.8 Plt Count 235 MPV 10.3 Immature Gran % (Auto) 1.3 H Neut % (Auto) 89.7 H Lymph % (Auto) 4.0 L [place] % (Auto) 4.8 Eos % (Auto) 0.0 Baso % (Auto) 0.2 Lymph # (Auto) 0.7 L [place] # (Auto) 0.8 Eos # (Auto) 0.0 Baso # (Auto) 0.0 Abs Immat Gran (auto) 0.22 H Absolute Neuts (auto) 15.1 H Absolute Nucleated RBC 0.000 Nucleated RBC % (auto) 0.0 Hold Purple Top SEE NOTE Estim Creat Clear Calc 98.6 Estimated GFR > 60 Microbiology Microbiology Results: Microbiology 09/30/24 16:45 Gram Stain - Final Axilla Right Routine Culture - Preliminary Culture in progress. 09/27/24 20:08 Gram Stain - Final Axilla Routine Culture - Final Staphylococcus aureus Assessment and Plan (1) Abscess of right axilla: Status: Acute (2) Acute respiratory failure with hypoxia and hypercarbia: Status: Acute (3) Cellulitis of axilla: Status: Acute Plan a 64-year-old female with pertinent history of diastolic congestive heart failure, ALEKSEY/OHS on nocturnal BiPAP, chronic hypoxic respiratory failure due to COPD, morbid obesity, paroxysmal atrial fibrillation not on anticoagulation, mood disorder who presents to the emergency department for evaluation of abscess and developed respiratory failure requiring ICU admission for bipap. # Acute hypercarbic respiratory failure 2/2 COPD exacerbation continue Duonechris , citlali Steroids BiPap when sleeping , noted to have sinus bradycardia Continue IV diuresis strict I's and O's and low-salt diet O2 while awake # Abscess of axilla Post surgical I&D: surgeon would like to monitor for 1 more night pending cultures continue IV Unasy and Doxy # Vancomycin toxicity Elevated Level trended down to 17 DC Vancomycin for now monitor BMP and Random Vanco # Acute Hypernatremia Na improved to 143 # Sacral wound . Wound care, local measures and Nystatin # PHysical deconditioning, PT eval # ALEKSEY/OHS: Continue nocturnal BiPAP # Morbid obesity: Counseled regarding diet and exercise # Paroxysmal atrial fibrillation not on anticoagulation: Normal sinus rhythm during admission # Mood disorder: Continue home mood stabilizers # Normocytic anemia, chronic DVT PPx Heparin will require overnight hospital stay for supplemental oxygen, systemic steroids, monitoring of respiratory status, IV diuresis, pending surgical clearance to discharge Quality Stroke Does the patient have a stroke diagnosis?: No VTE Prior VTE?: No VTE Risk Level:: Medical - moderate - high VTE Device Contraindication: N/A - Device Ordered VTE Drug Contraindication: N/A - Med Ordered
[2024-10-01 16:00] VITALS: BP 142/59; PULSE 54; RESP 20; TEMP 36.3; O2SAT 96
[2024-10-01] MEDS: clonazePAM 0.5 MG TABLET PO (16:27)
--- NOTE | 2024-10-01 19:04 | P.PNGS_ITS ---
Subjective Subjective Date of Service: 10/01/24 Interval history: Right axillary areas very tender but she feels okay. It has been bleeding after the packing removed so plan to put Surgicel in and repacked Physical Exam 2 Vital Signs: Vital Signs: Last Vital Signs Temp 97.4 F 10/01/24 16:00 Pulse 54 10/01/24 16:00 Resp 20 10/01/24 16:00 BP 142/59 H 10/01/24 16:00 Pulse Ox 96 10/01/24 16:00 O2 Del Method Room Air 10/01/24 16:00 O2 Flow Rate 5 10/01/24 00:00 FiO2 35 09/28/24 12:00 Oxygen Flow Rate 8 09/30/24 00:00 BMI result Body Mass Index 52.7 Skin: Other: Taking out the right axillary packing the area initially looked good but then started to bleed so the area was packed again and then some Surgicel was obtained and repacked into the depths of the wound and gauze packed around it Objective Data Active Medications Albuterol Sulfate (Albuterol Sulfate (0.083%) 2.5 Mg/3 Ml Vial.Neb) 2.5 mg INHALE Q3H PRN PRN Reason: wheezing Albuterol/Ipratropium (Albuterol/Iprat 2.5/0.5mg 3 Ml Ampul.Neb) 3 ml INHALE RQ6H [facility] Last Admin: 10/01/24 17:56 Dose: Not Given Documented By: VINICIO Non-Admin Reason: Patient Refused Clonazepam (Clonazepam 0.5 Mg Tablet) 0.5 mg PO BID PRN PRN Reason: Anxiety Last Admin: 10/01/24 16:27 Dose: 0.5 mg Documented By: POPPY Clonazepam (Clonazepam 1 Mg Tablet) 1 mg PO DAILY [facility] Last Admin: 10/01/24 09:14 Dose: 1 mg Documented By: POPPY Diltiazem HCl (Diltiazem Hcl Cd 240 Mg Cap.Er.Deg) 240 mg PO DAILY [facility]; Protocol Last Admin: 10/01/24 09:14 Dose: 240 mg Documented By: POPPY Fluticasone/Umeclidinium/Vilanterol (Fluticasone/Umeclidinium/Vilanterol 100/62.5/25 Blst.W.Dev) 1 puff INHALE DAILY [facility] Last Admin: 10/01/24 07:51 Dose: Not Given Documented By: VINICIO Non-Admin Reason: Patient Asleep Furosemide (Furosemide 20 Mg Tablet) 20 mg PO BID [facility]; Protocol Last Admin: 10/01/24 09:14 Dose: 20 mg Documented By: POPPY Heparin Sodium (Porcine) (Heparin Sodium,Porcine 5,000 Unit/Ml Vial) 5,000 unit SUBCUT Q8H [facility] Last Admin: 10/01/24 18:08 Dose: Not Given Documented By: POPPY Non-Admin Reason: Hold per Hydromorphone HCl (Hydromorphone Hcl 0.5 Mg/0.5 Ml Syringe) 0.5 mg IVPUSH Q4H PRN; Protocol PRN Reason: Pain, Severe (Pain Scale 7-10) Last Admin: 10/01/24 18:10 Dose: 0.5 mg Documented By: POPPY Doxycycline Hyclate 100 mg/ (Sodium Chloride) 250 mls @ 166.67 mls/hr IV Q12H [facility] Last Infusion: 10/01/24 10:45 Dose: Infused Documented By: POPPY Ampicillin Sodium/Sulbactam (Sodium 3 gm/ Sodium Chloride) 100 mls @ 200 mls/hr IV Q8H [facility] Last Infusion: 10/01/24 16:52 Dose: Infused Documented By: POPPY Naloxone HCl (Naloxone Hcl 0.4 Mg/Ml Vial) 0.04 mg IVPUSH Q5M PRN PRN Reason: Excessive sedation or RR < 8 Nystatin (Nystatin Powder 15 Gm Bottle) 1 appl TOPICAL BID [facility]; Protocol Last Admin: 10/01/24 09:14 Dose: 1 appl Documented By: POPPY Omeprazole (Omeprazole 20 Mg Capsule.Dr) 20 mg PO DAILY@0630 [facility] Last Admin: 10/01/24 06:34 Dose: 20 mg Documented By: JULITA-IRWINZEViky Oxycodone HCl (Oxycodone Hcl Immed Release 5 Mg Tablet) 20 mg PO Q6H PRN PRN Reason: Pain, Severe (Pain Scale 7-10) Last Admin: 10/01/24 14:31 Dose: 20 mg Documented By: POPPY Temazepam (Temazepam 15 Mg Capsule) 30 mg PO BEDTIME PRN PRN Reason: Sleep Last Admin: 09/30/24 19:52 Dose: 30 mg Documented By: TONIO Labs 10/01/24 05:54 10/01/24 05:54 Labs: Laboratory Results - last 24 hr 10/01/24 05:54 MCV 83.4 MCH 24.5 L MCHC 29.4 L RDW 14.8 Plt Count 235 MPV 10.3 Immature Gran % (Auto) 1.3 H Neut % (Auto) 89.7 H Lymph % (Auto) 4.0 L [place] % (Auto) 4.8 Eos % (Auto) 0.0 Baso % (Auto) 0.2 Lymph # (Auto) 0.7 L [place] # (Auto) 0.8 Eos # (Auto) 0.0 Baso # (Auto) 0.0 Abs Immat Gran (auto) 0.22 H Absolute Neuts (auto) 15.1 H Absolute Nucleated RBC 0.000 Nucleated RBC % (auto) 0.0 Hold Purple Top SEE NOTE Estim Creat Clear Calc 98.6 Estimated GFR > 60 Microbiology Microbiology Results: Microbiology 09/30/24 16:45 Gram Stain - Final Axilla Right Routine Culture - Preliminary Culture in progress. Procedures Date of Service Date of Service: 10/01/24 Progress Note: A&P Assessment and plan (1) Abscess of right axilla: Status: Acute Plan Patient is status post drainage of right axillary abscess area doing better but the surgical open wound area was bleeding. The right cavity was packed with some Surgicel and then some gauze and we secured. We will leave this dressing in until tomorrow. Time Spent With Patient Time: Total time managing care of this patient today ____ minutes. Quality Stroke Does the patient have a stroke diagnosis?: No VTE Prior VTE?: No VTE Risk Level:: Medical - moderate - high VTE Device Contraindication: N/A - Device Ordered VTE Drug Contraindication: N/A - Med Ordered
[2024-10-01 20:00] VITALS: BP 154/65; PULSE 89; RESP 18; TEMP 36.7; O2SAT 96
[2024-10-02] VITALS (7 sets, daily range): BP systolic 145–158; BP diastolic 66–71; PULSE 51–58; RESP 18–20; TEMP 36.2–36.6; O2SAT 94–100; BMI 52.3
[2024-10-02] MEDS: Ampicillin Sodium/Sulbactam Na 3 GM in 0.9 % Sodium Chloride 100 ML IV ×2 (00:43→08:13)
[2024-10-02] MEDS: clonazePAM 0.5 MG TABLET PO ×2 (00:51→14:41)
[2024-10-02] MEDS: HYDROmorphone HCl 0.5 MG/0.5 ML SYRINGE IVPUSH ×2 (00:51→08:11)
[2024-10-02 06:23] LABS: Creatinine Clr Calc Pharmacy 95.9; Estimated Glomerular Filt Rate > 60
[2024-10-02] MEDS: Omeprazole 20 MG CAPSULE.DR PO (06:38)
--- NOTE | 2024-10-02 07:50 | HO.POSTANES ---
Post Anesthesia Evaluation Post Anesthesia Evaluation Date of Service: 10/02/24 Vital Signs: Vital Signs Temp Pulse Resp BP Pulse Ox O2 Del Method O2 Flow Rate 10/02/24 03:47 97.9 F 53 20 148/68 H 100 CPAP 10/02/24 00:51 18 10/02/24 00:00 97.9 F 51 20 158/71 H 99 CPAP 10/01/24 20:00 98.1 F 89 18 154/65 H 96 Nasal Cannula 5 Anesthesia: General LMA Mental Status: Awake Pain Control: Satisfactory Nausea/Vomiting: None Hydration: Adequate Anesthesia-Related Issues: No Anes. Related Issues
[2024-10-02] MEDS: dilTIAZem HCL CD 240 MG CAP.ER.DEG PO (08:11)
[2024-10-02] MEDS: Furosemide 20 MG TABLET PO (08:11)
[2024-10-02] MEDS: clonazePAM 1 MG TABLET PO (08:11)
--- NOTE | 2024-10-02 08:11 | P.PNGS_ITS ---
Subjective Subjective Date of Service: 10/02/24 Interval history: No new complaints No fever Physical Exam 2 Vital Signs: Vital Signs: Last Vital Signs Temp 97.8 F 10/02/24 07:51 Pulse 58 10/02/24 07:51 Resp 20 10/02/24 07:51 BP 152/66 H 10/02/24 07:51 Pulse Ox 94 10/02/24 07:51 O2 Del Method CPAP 10/02/24 07:51 O2 Flow Rate 5 10/02/24 07:51 FiO2 35 09/28/24 12:00 Oxygen Flow Rate 8 10/02/24 07:04 BMI result Body Mass Index 52.3 Const: Other: Using CPAP General: no acute distress Nutritional Appearance: obese Chest: Other: Right axilla - minimal induration on I&D site, no significant discharge, no fluctuance, packing in place Resp: Other: Using CPAP Cardio: Rate: regular rate Objective Data Active Medications Albuterol Sulfate (Albuterol Sulfate (0.083%) 2.5 Mg/3 Ml Vial.Neb) 2.5 mg INHALE Q3H PRN PRN Reason: wheezing Albuterol/Ipratropium (Albuterol/Iprat 2.5/0.5mg 3 Ml Ampul.Neb) 3 ml INHALE RQ6H BEN Last Admin: 10/02/24 07:56 Dose: Not Given Documented By: RANDEE Non-Admin Reason: Patient Refused Clonazepam (Clonazepam 0.5 Mg Tablet) 0.5 mg PO BID PRN PRN Reason: Anxiety Last Admin: 10/02/24 00:51 Dose: 0.5 mg Documented By: MUKUND Clonazepam (Clonazepam 1 Mg Tablet) 1 mg PO DAILY [facility] Last Admin: 10/01/24 09:14 Dose: 1 mg Documented By: POPPY Diltiazem HCl (Diltiazem Hcl Cd 240 Mg Cap.Er.Deg) 240 mg PO DAILY [facility]; Protocol Last Admin: 10/01/24 09:14 Dose: 240 mg Documented By: SHONDAFAPallavi Fluticasone/Umeclidinium/Vilanterol (Fluticasone/Umeclidinium/Vilanterol 100/62.5/25 Blst.W.Dev) 1 puff INHALE DAILY [facility] Last Admin: 10/02/24 07:56 Dose: Not Given Documented By: RANDEE Non-Admin Reason: Patient Refused Furosemide (Furosemide 20 Mg Tablet) 20 mg PO BID [facility]; Protocol Last Admin: 10/01/24 20:22 Dose: 20 mg Documented By: MUKUND Hydromorphone HCl (Hydromorphone Hcl 0.5 Mg/0.5 Ml Syringe) 0.5 mg IVPUSH Q4H PRN; Protocol PRN Reason: Pain, Severe (Pain Scale 7-10) Last Admin: 10/02/24 00:51 Dose: 0.5 mg Documented By: MUKUND Doxycycline Hyclate 100 mg/ (Sodium Chloride) 250 mls @ 166.67 mls/hr IV Q12H [facility] Last Infusion: 10/01/24 21:52 Dose: Infused Documented By: MUKUND Ampicillin Sodium/Sulbactam (Sodium 3 gm/ Sodium Chloride) 100 mls @ 200 mls/hr IV Q8H [facility] Last Infusion: 10/02/24 01:13 Dose: Infused Documented By: MUKUND Naloxone HCl (Naloxone Hcl 0.4 Mg/Ml Vial) 0.04 mg IVPUSH Q5M PRN PRN Reason: Excessive sedation or RR < 8 Nystatin (Nystatin Powder 15 Gm Bottle) 1 appl TOPICAL BID [facility]; Protocol Last Admin: 10/01/24 20:27 Dose: Not Given Documented By: MUKUND Non-Admin Reason: Patient Refused Omeprazole (Omeprazole 20 Mg Capsule.) 20 mg PO DAILY@0630 [facility] Last Admin: 10/02/24 06:38 Dose: 20 mg Documented By: MUKUND Oxycodone HCl (Oxycodone Hcl Immed Release 5 Mg Tablet) 20 mg PO Q6H PRN PRN Reason: Pain, Severe (Pain Scale 7-10) Last Admin: 10/01/24 21:07 Dose: 20 mg Documented By: MUKUND Temazepam (Temazepam 15 Mg Capsule) 30 mg PO BEDTIME PRN PRN Reason: Sleep Last Admin: 09/30/24 19:52 Dose: 30 mg Documented By: TONIO Labs 10/01/24 05:54 10/02/24 05:49 Labs: Laboratory Results - last 24 hr 10/01/24 10/02/24 05:54 05:49 MCV 83.4 MCH 24.5 L MCHC 29.4 L RDW 14.8 Plt Count 235 MPV 10.3 Immature Gran % (Auto) 1.3 H Neut % (Auto) 89.7 H Lymph % (Auto) 4.0 L Shack[place]ord % (Auto) 4.8 Eos % (Auto) 0.0 Baso % (Auto) 0.2 Lymph # (Auto) 0.7 L [place]ord # (Auto) 0.8 Eos # (Auto) 0.0 Baso # (Auto) 0.0 Abs Immat Gran (auto) 0.22 H Absolute Neuts (auto) 15.1 H Absolute Nucleated RBC 0.000 Nucleated RBC % (auto) 0.0 Estim Creat Clear Calc 95.9 Estimated GFR > 60 Microbiology Microbiology Results: Microbiology 09/30/24 16:45 Gram Stain - Final Axilla Right Routine Culture - Preliminary Culture in progress. Procedures Date of Service Date of Service: 10/02/24 Progress Note: A&P Assessment and plan (1) Abscess of right axilla: Status: Acute Assessment and Plan: I&D done by Dr. Dash I removed her packing Dry dressings applied Site looks well with minimal induration, no cellulitis I have instructed her on good care with dry dressing changes daily - she has a visiting nurse I can see her in the office for a wound check in about 2 weeks Follow up on cultures for antibiotic regimen Time Spent With Patient Time: Total time managing care of this patient today ____ minutes. Quality Stroke Does the patient have a stroke diagnosis?: No VTE Prior VTE?: No VTE Risk Level:: Medical - moderate - high VTE Device Contraindication: N/A - Device Ordered VTE Drug Contraindication: N/A - Med Ordered
[2024-10-02] MEDS: Doxycycline Hyclate 100 MG in 0.9 % Sodium Chloride 250 ML 166.67 MG IV (08:12)
[2024-10-02 08:26] LABS: Mean Corpuscular Hemoglobin 24.4 pg (27.0-33.0); Mean Platelet Volume 10.2 fL (9.4-12.3); NRBC Pct Auto 0.1 /100WBC (0.0-0.2); Platelet Count 255 X10*3/uL (160-400); Red Blood Count 3.69 X10*6/uL (4.20-5.50); Red Cell Distribution Width 14.8 % (11.0-16.0)
[2024-10-02] MEDS: Nystatin Powder 15 GM BOTTLE 1 APPL TOPICAL (08:43)
--- NOTE | 2024-10-02 10:53 | W.MHC.F2F ---
Service Date Service Date: 10/02/24 Encounter Date of encounter: 10/02/24 Reasons for Services Signs and symptoms assessed: physical deconditioning wound Reason for residential: wound care ( dry dressing changes Daily\Q2 Days and self care ) Reason for physical therapy: home safety and mobility and therapeutic exercises Homebound: Leaving the home is medically contraindicated at this time without the asist of a device and/or another person due th the listed conditions above and below. Reason homebound: unsteady gait / fall risk Certification: Based on the above findings, I certify that this patient is confined to the home and needs intermittent residential care, physical therapy and/or speech therapy, or continues to need occupational therapy. The patient is under my care, and I have initiated the establishment of the plan of care. The patient will be followed by a physician who will periodically review the plan of care. Time Spent With Patient Time: Total time managing care of this patient today ____ minutes.
--- NOTE | 2024-10-02 12:17 | MHC.CM.PN ---
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 Original Note: PT MEDICALLY CLEARED FOR DC, CM MET W/PT WHO REPORTS SHE WANTS OUTPT PULMONARY REHAB AT [facility] IN [place], PT AWARE SHE WILL NOT BE ABLE TO HOME SERVICES AND OUTPT SERVICES AT THE SAME TIME D/T MEDICARE/INSURANCE, SURGERY ENTERED ROOM AND PT REPORTED SHE HAD VNA AND WOUND CLINIC HOWEVER THEN PT REPORTED HER VNA/WOUND CLINIC RECENTLY ENDED. 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 PT WILL ARRANGE HER OWN TRANSPORTATION.
[2024-10-02] MEDS: Fluticasone/Umeclidinium/Vilanterol 100/62.5/25 BLST.W.DEV 1 PUFF INHALE (15:28)
--- NOTE | 2024-10-03 14:44 | P.F2F_ITS ---
Service Date Service Date: 10/02/24 Encounter Date of encounter: 10/02/24 Reasons for Services Signs and symptoms assessed: physical deconditioning axilla abscess Reason for assisted: wound care (dry dressing ) and medication management Homebound: Leaving the home is medically contraindicated at this time without the asist of a device and/or another person due th the listed conditions above and below. Reason homebound: unsteady gait / fall risk Certification: Based on the above findings, I certify that this patient is confined to the home and needs intermittent assisted care, physical therapy and/or speech therapy, or continues to need occupational therapy. The patient is under my care, and I have initiated the establishment of the plan of care. The patient will be followed by a physician who will periodically review the plan of care. Time Spent With Patient Time: Total time managing care of this patient today ____ minutes.
--- NOTE | 2024-10-17 08:05 | P.CDIM_ITS ---
PROVIDER RESPONSE TEXT: To clarify, the appropriate diagnosis supported by the clinical indicators: Incision and drainage: into subcutaneous fatty tissue of the axilla - 1.8 cm deep QUERY TEXT: PHYSICIAN'S DOCUMENTATION REQUEST Date of Query: 10/03/2024 08:35 AM EDT Patient Name: Brianne Chaudhary Admit Date: 09/28/2024 Dear Nataliya Dash MD, RETROSPECTIVE QUERY A review of the medical record indicates additional documentation may be needed. Please review below and update the documentation accordingly. Clinical Indicators: Op note 09/30/24 - The incision was already present was made little bigger with the scalpel and using a Gladis clamp and finger dissection, the phlegmon tissue was dissected and opened up revealing some thickened purulent material and cultur es were taken. Cautery was used to get hemostasis and then compression of the deep area was carried out manually. Estimated blood loss was 15 cc and culture sent for Gram stain aerobic and anaerobic. Could you provide, in the Progress Notes, further clarification regarding the depth of the Incision a nd drainage: Incision and drainage skin, subcutaneous tissue and fascia, other etc. 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cs to the noted I&D Other (explain) Clinically unable to determine (explain) Thank you, Teresa Martinez, CCS, CDIS Use of terms such as suspected, likely, concern for, or probable (associated with a specific diagnosi s that is being evaluated, monitored, or treated as if it exists) are acceptable and can be coded in the inpatient se tting, when documented at the time of discharge. Please use your independent medical judgment in providing your response. THIS QUERY IS PART OF THE PERMANENT MEDICAL RECORD
== END 2024-10-02 16:08 | disposition home or self-care (01) | DRG 602 ==
LOC: HO.ED 09-28 03:27 → HO.ICU 09-28 04:31 → HO.IMC 09-28 13:42
PROVIDERS: Surgery; Admitting Provider Physician Assistant Medical; Emergency Provider Emergency Medicine; PCP Internal Medicine; Visit Provider Student in an Organized Health Care Education/Training Program
PROC: 0J9D0ZZ Drainage of Right Upper Arm Subcutaneous Tissue and Fascia, Open Approach (ICD-10-PCS; principal; 2024-09-30 15:00)
DX: L02.411 Cutaneous abscess of right axilla (principal); J69.0 Pneumonitis due to inhalation of food and vomit; J96.01 Acute respiratory failure with hypoxia; J96.02 Acute respiratory failure with hypercapnia; J44.1 Chronic obstructive pulmonary disease with (acute) exacerbation; F11.20 Opioid dependence, uncomplicated; J98.11 Atelectasis; E87.4 Mixed disorder of acid-base balance; E66.2 Morbid (severe) obesity with alveolar hypoventilation; Z68.43 Body mass index [BMI] 50.0-59.9, adult; E87.0 Hyperosmolality and hypernatremia; Z86.14 Personal history of Methicillin resistant Staphylococcus aureus infection; I27.20 Pulmonary hypertension, unspecified; I48.0 Paroxysmal atrial fibrillation; F39 Unspecified mood [affective] disorder; L03.111 Cellulitis of right axilla; Z20.822 Contact with and (suspected) exposure to COVID-19; Z79.899 Other long term (current) drug therapy
CPT/HCPCS: 0241U; 36415; 71045; 71260; 76882; 80048; 80053; 80076; 80202; 80307; 82565; 82803; 83605; 83735; 83880; 84100; 84484; 85025; 85027; 85610; 86140; 87040; 87070; 87077; 87186; 87205; 93005; 93306; 94640; 97162; 99285; J0295; J1100; J1171; J1644; J1940; J2003; J2250; J2405; J2470; J2543; J2919; J3010; J3370; Q9967

== ENCOUNTER → 2024-09-27 19:24 | Outpatient (BNV) | payer MEDICARE, MEDICAID, SELFPAY | PROVIDERS: Admitting Provider Physician Assistant Medical; Emergency Provider Emergency Medicine; Visit Provider Internal Medicine Cardiovascular Disease | DX: R06.02 Shortness of breath (principal) | CPT/HCPCS: 93010 ==

== ENCOUNTER → 2024-09-27 19:24 | Outpatient (BNV) | payer MEDICARE, MEDICAID, SELFPAY | PROVIDERS: Emergency Provider Emergency Medicine; Visit Provider Specialist | DX: L02.411 Cutaneous abscess of right axilla (principal); L03.111 Cellulitis of right axilla; J98.11 Atelectasis | CPT/HCPCS: 71260 ==

== ENCOUNTER 2024-09-28 03:00 | Outpatient (BNV) | payer MEDICARE, MEDICAID, SELFPAY | END 2024-09-28 07:00 | PROVIDERS: Admitting Provider Physician Assistant Medical; Emergency Provider Emergency Medicine; Visit Provider Internal Medicine Cardiovascular Disease | DX: I35.0 Nonrheumatic aortic (valve) stenosis (principal); I34.2 Nonrheumatic mitral (valve) stenosis; I36.1 Nonrheumatic tricuspid (valve) insufficiency; I42.2 Other hypertrophic cardiomyopathy | CPT/HCPCS: 93306 ==

== ENCOUNTER → 2024-09-28 03:00 | Outpatient (BNV) | payer MEDICARE, MEDICAID, SELFPAY | PROVIDERS: Admitting Provider Physician Assistant Medical; Emergency Provider Emergency Medicine; Visit Provider Internal Medicine Critical Care Medicine | DX: J96.02 Acute respiratory failure with hypercapnia (principal) | CPT/HCPCS: 99291; 99499 ==

== ENCOUNTER → 2024-09-28 03:00 | Outpatient (BNV) | payer MEDICARE, MEDICAID, SELFPAY | PROVIDERS: Admitting Provider Physician Assistant Medical; Emergency Provider Emergency Medicine; PCP Internal Medicine; Visit Provider Surgery | DX: L02.411 Cutaneous abscess of right axilla (principal) | CPT/HCPCS: 10060; 99024; 99222 ==

== ENCOUNTER → 2024-09-28 03:00 | Outpatient (BNV) | payer MEDICARE, MEDICAID, SELFPAY | PROVIDERS: Admitting Provider Physician Assistant Medical; Emergency Provider Emergency Medicine; Visit Provider Student in an Organized Health Care Education/Training Program | DX: J96.02 Acute respiratory failure with hypercapnia (principal); L02.411 Cutaneous abscess of right axilla; L03.119 Cellulitis of unspecified part of limb | CPT/HCPCS: 99239; G0180 ==

== ENCOUNTER 2024-10-08 02:19 | Inpatient (IN) | payer OTHER, SELFPAY ==
[2024-10-08] VITALS (15 sets, daily range): BP systolic 100–149; BP diastolic 43–96; PULSE 63–111; RESP 15–25; TEMP 36.2–38.5; O2SAT 93–99; BMI 53.2; BMI 54.9
--- NOTE | 2024-10-08 | ECG_ITS ---
Test Reason : SOB Blood Pressure : */* mmHG Vent. Rate : 101 BPM Atrial Rate : 101 BPM P-R Int : 226 ms QRS Dur : 88 ms QT Int : 338 ms P-R-T Axes : * 52 57 degrees QTcB Int : 438 ms Sinus tachycardia with 1st degree A-V block Otherwise normal ECG When compared with ECG of 27-Sep-2024 19:40, DE interval has increased Referred By: Generic ED Physician Electronically Signed By: STEPHANY STOUT
--- NOTE | ~2024-10-08 | US_ITS ---
EXAMINATION: US EXTREMITY MUSCULOSKELETAL LIMITED HISTORY: f/u right axillary abscess COMPARISON: Comparison is made with the prior examination dated 09/27/2024. FINDINGS: Sonographic examination of the right axilla was performed. There is an irregularly-shaped fluid collection measuring 5.0 x 2.0 x 1.7 cm. This contains echogenic material which may represent packing. US/US extremity nonvascular lott IMPRESSION: Irregularly shaped 5.0 x 2.0 x 1.7 cm fluid collection in the right axilla consistent with residual/recurrent abscess. Echogenic material may represent packing material. Electronically signed by: Brady Blanca MD 10/11/2024 07:22 AM EDT
--- NOTE | ~2024-10-08 | XR_ITS ---
EXAMINATION: XR CHEST CLINICAL INFORMATION: flu, resp failure COMPARISON: Marked 2024. TECHNIQUE: Frontal view of the chest was obtained. FINDINGS: Indistinct margins of the pulmonary hilum and prominence of the interstitial markings. Haziness in the lower hemithoraces. Cardiomediastinal silhouette is enlarged. No pneumothorax. Calcified plaque thoracic aorta. Multilevel thoracic spondylosis. No pneumothorax. Degenerative changes in the right acromioclavicular joint. XR/XR chest 1V IMPRESSION: Cardiomegaly versus pericardial effusion and mild pulmonary edema. Overall stable to slightly improved. Probable left-sided pleural effusion, small to moderate volume. Electronically signed by: Anjel Strickland MD 10/12/2024 08:48 AM EDT
--- NOTE | ~2024-10-08 | CT_ITS ---
CLINICAL HISTORY: shortness of breath CT chest with contrast Comparison: CT - CT CHEST W IV CON - 10/14/24 10:34 EDT Findings: Motion artifact significantly limits interpretation The pulmonary arterial tree is enlarged, with the main pulmonary artery measuring up to 4.5 cm. No aortic aneurysms. There is atherosclerotic disease of the coronary arteries. No mediastinal adenopathy. The heart is mildly enlarged. Large bleb noted along the anterior right lung base. Diffuse faint ground-glass density suggested. No effusion or pneumothorax. The visualized upper abdomen demonstrates no definite acute process. Old right-sided rib fractures are noted. Impression: Cardiomegaly with dilated pulmonary arteries. Correlation for pulmonary arterial hypertension. Faint diffuse ground-glass density, nonspecific. Correlation for viral infectious process. The study is extremely limited by significant motion artifact. This document has been electronically signed by: Maxim Way MD on 10/14/2024 11:33:22
--- NOTE | ~2024-10-08 | XR_ITS ---
CLINICAL HISTORY: sob 1 view chest x-ray. Comparison: CR - XR CHEST 1V - 09/27/24 20:34 EST Findings: Study is mildly limited by large body habitus. There appears to be pulmonary vascular congestion and mild interstitial opacities in the mid to lower lungs similar to the prior study and suggestive of mild interstitial edema. No definite effusion is seen. Cardiomegaly appears stable. IMPRESSION: Findings as above. This document has been electronically signed by: Naveed Dupont MD on 10/08/2024 04:33:22
[2024-10-08 02:42] LABS: Basophils Percent Auto 0.2 % (0-2); Eosinophils Absolute Auto 0.2 X10*3/uL (0.0-0.4); Eosinophils Percent Auto 1.3 % (0-4); Hematocrit 31.3 % (37.0-47.0); Hemoglobin 9.2 g/dl (12.0-16.0); Imm Gran Abs Auto 0.08 X10*3/uL (0.00-0.03); Imm Gran Pct Auto 0.6 % (0.0-0.4); Lymphocytes Absolute Auto 0.4 X10*3/uL (1.2-4.9); Lymphocytes Percent Auto 2.7 % (20-40); MANUAL DIFF FLAG SCAN; Mean Corpuscular HGB Conc 29.4 g/dl (31.0-35.0); Mean Corpuscular Hemoglobin 24.4 pg (27.0-33.0); Mean Platelet Volume 10.2 fL (9.4-12.3); Monocytes Absolute Auto 0.7 X10*3/uL (0.1-1.2); Monocytes Percent Auto 4.7 % (2-11); Neutrophils Absolute Auto 12.9 x10*3/uL (2.0-8.3); Neutrophils Percent Auto 90.5 % (45-73); Platelet Count 185 X10*3/uL (160-400); Red Blood Count 3.77 X10*6/uL (4.20-5.50); Red Cell Distribution Width 15.8 % (11.0-16.0); SCAN SMEAR FLAG 1; White Blood Count 14.3 X10*3/uL (4.8-10.8)
[2024-10-08 02:45] LABS: Venous Blood Gas Refer to POC result
[2024-10-08 02:46] LABS: VBG Base Excess 16.9 mmol/L; VBG HCO3 44 mmol/L (22-26); VBG pCO2 70 mmHg; VBG pO2 44 mmHg
--- NOTE | 2024-10-08 02:46 | ED_ITS ---
HPI - SOB/Dyspnea General Chief Complaint: Dyspnea Stated Complaint: SOB Time Seen by Provider: 10/08/24 02:36 Source: patient Mode of arrival: EMS Limitations: no limitations History of Present Illness ED Provider: HPI Narrative: Patient's 64 years old with a history of COPD chronic respiratory failure congestive heart failure on chronic home oxygen 4-6 L and BiPAP at night chronic hypoxic hypercarbic respiratory failure paroxysmal AFib not on anticoagulation, Obese just discharged on 10/03 for right axillary abscess I and D on Augmentin comes here as for last 24 hours been having cold symptoms and feeling more short of breath saturating 99% on 4 L on arrival noted to have low-grade temperature of 100.5 degrees patient has been coughing with mucopurulent phlegm no chest pain no palpitation patient has says it is likely she had flu as she was exposed to somebody who had influenza 2 days ago Related Data Home Medications ?Medication ?Instructions ?Recorded ?Confirmed fluticasone fur. 100 mcg-umeclid 1 ea inhalation DAILY 04/24/24 10/03/24 62.5 mcg-vilant 25 mcg inhalat.powder (Trelegy Ellipta) cholecalciferol (vitamin D3) 50 50 mcg PO DAILY 05/21/24 10/03/24 mcg (2,000 unit) tablet clonazepam 0.5 mg tablet 0.5 mg PO BID PRN Anxiety 05/21/24 10/03/24 temazepam 30 mg capsule 30 mg PO BEDTIME PRN Sleep 05/21/24 10/03/24 acetaminophen 500 mg tablet 1,000 mg PO TID PRN Pain 09/28/24 10/03/24 clonazepam 1 mg tablet 1 mg PO DAILY 09/28/24 10/03/24 meloxicam 15 mg tablet 15 mg PO DAILY 09/28/24 10/03/24 omeprazole 20 mg tablet,delayed 20 mg PO DAILY@0630 09/28/24 10/03/24 release oxycodone 5 mg tablet 10 mg PO 5XD 09/28/24 10/03/24 Previous Rx's ?Medication ?Instructions ?Recorded diltiazem HCl 240 mg capsule,24 240 mg PO DAILY #90 caps 08/14/24 hr,extended release furosemide 20 mg tablet (Lasix) 20 mg PO BID #60 tabs 09/25/24 amoxicillin 875 mg-potassium 1 tab PO BID #14 tabs 10/01/24 clavulanate 125 mg tablet doxycycline monohydrate 100 mg 100 mg PO BID #14 caps 10/01/24 capsule nystatin 100,000 unit/gram topical 1 appl topical BID #30 grams 10/01/24 powder theophylline 400 mg 400 mg PO DAILY #30 caps 10/06/24 capsule,extended release 24 hr (Roque-24) Allergies Allergy/AdvReac Type Severity Reaction Status Date / Time gabapentin Allergy Mild Anxiety Verified 10/08/24 02:41 morphine [MORPHINE] Allergy Unknown ANAPHALAXIS, Verified 10/08/24 02:41 anaphylaxis propofol [From Diprivan] Allergy Anaphylaxis Verified 10/08/24 02:41 Review of Systems 2 Review of Systems: Yes all other systems are reviewed and are negative [facility] Past Medical History Medical History VERN (acute kidney injury) COPD (chronic obstructive pulmonary disease) Enterococcus faecalis infection MSSA (methicillin susceptible Staphylococcus aureus) MRSA (methicillin resistant staph aureus) culture positive Encounter for management of wound VAC Chronic osteomyelitis Hypertension Iron deficiency anemia COPD (chronic obstructive pulmonary disease) Femur fracture Crohn's colitis Morbid obesity due to excess calories Closed tibia fracture Acute on chronic respiratory failure with hypoxia and hypercapnia Nonrheumatic mitral (valve) stenosis Paroxysmal atrial fibrillation Dyspnea Hypoventilation associated with obesity Pickwickian syndrome Chronic hypercapnic respiratory failure Opioid use disorder Surgical History Hx of cholecystectomy History of open reduction and internal fixation (ORIF) procedure Status post open reduction and internal fixation (ORIF) of fracture Recent surgical procedure on lower extremity Family History Family History Other Adopted Social History Social History Household Members: Spouse and Children Household Members Other:: , Hoa. Daughter Carolyn, 21. Daughter's Boyfriend, 22. Neice, 21 Housing: House Do you presently have visiting nurse or other home services: Yes (wound care) Alcohol intake: never Comment: COUNTS CORRECT Patient Tobacco Use Status: Former Tobacco user Years Smoked: 25 Smoked in Last 30 Days: No e-Cigarette/Vaping Use: Never Used Second Hand Smoke Exposure: No Use of substances other than those prescribed or required for medical reasons: No Advance Directives: Yes Advance Directives on File: Yes Advance Directives Date on File: 12/16/20 service: No Current occupational status: disabled Cognitive needs: No Hearing needs: No Vision needs: Yes Physical Exam 2 Vital Signs: Vital Signs: Last Vital Signs Temp 101.3 F H 10/08/24 05:26 Pulse 86 10/08/24 05:26 Resp 20 10/08/24 05:26 BP 127/43 L 10/08/24 05:26 Pulse Ox 94 10/08/24 05:26 O2 Del Method BiPAP 10/08/24 05:26 Oxygen Flow Rate 9 10/08/24 02:39 BMI result Body Mass Index 53.2 Appearance: Alert. Oriented X3. Moderate distress Eyes: PERRLA, no pallor or icterus ENT: Pharynx normal. Oral Mucosa moist Neck: Normal inspection. Neck supple. CVS: Normal heart rate and rhythm. Pulses normal. Respiratory: No respiratory distress. Equal air entry bilateral, bilateral prolonged expiration decreased air entry Abdomen: Soft and nontender. Bowel sounds are present, no mass palpable, no CVA tenderness Skin: Skin warm and dry. Normal skin color. Normal skin turgor. Right axillary status post I and D with the pus discharge from the wound Extremities: Chronic venous stasis bilateral. No calf tenderness Neuro: Oriented X 3. No motor deficit. No sensory deficit.No cerebellar signs , cranial nerves II-XII intact Medications Administered Generic Name Dose Route Start Last Admin Trade Name Freq PRN Reason Stop Dose Admin Enoxaparin Sodium 40 mg 10/08/24 05:00 10/08/24 05:51 Enoxaparin Sodium 40 Mg/0.4 Ml Syringe SUBCUT 40 mg Q12H BEN Administration Doxycycline Hyclate 100 mg/ 250 mls @ 166.67 mls/hr 10/08/24 06:00 10/08/24 05:51 Sodium Chloride IV 166.67 mls/hr Q12H BEN Administration Discontinued Medications Generic Name Dose Route Start Last Admin Trade Name Freq PRN Reason Stop Dose Admin Albuterol Sulfate 7.5 mg/ 10 mg 10/08/24 03:01 10/08/24 03:38 Albuterol Sulfate 2.5 mg INHALE 10/08/24 03:02 10 mg ONCE ONE Administration Ampicillin Sodium/Sulbactam Sodium 3 gm 10/08/24 06:00 10/08/24 06:06 Ampicillin Sodium/Sulbactam Na 3 Gm Vial IV 10/08/24 06:01 Not Given Q6H BEN Sodium Chloride 1,000 mls @ 999 mls/hr 10/08/24 02:59 10/08/24 04:28 Ns IV 10/08/24 03:59 Infused .Q1H1M ONE Infusion Piperacillin Sod/Tazobactam 50 mls @ 100 mls/hr 10/08/24 02:59 10/08/24 03:36 Sod 3.375 gm/ Sodium Chloride IV 10/08/24 03:28 Infused ONCE ONE Infusion Methylprednisolone Sodium Succinate 125 mg 10/08/24 03:33 10/08/24 03:51 Methylprednisolone Sod Succ 125 Mg/2 Ml Vial IVPUSH 10/08/24 03:34 125 mg ONCE ONE Administration Oseltamivir Phosphate 75 mg 10/08/24 03:27 10/08/24 03:50 Oseltamivir Phosphate 75 Mg Capsule PO 10/08/24 03:28 75 mg ONCE ONE Administration Medical Decision Making Medical Decision Making MDM Narrative: 64 years old with a history of COPD chronic respiratory failure congestive heart failure on chronic home oxygen 4-6 L and BiPAP at night chronic hypoxic hypercarbic respiratory failure paroxysmal AFib not on anticoagulation, Obese came for increased shortness a breath with fever noticed to have influenza A with normal lactic acid level but patient does have open wound the right axilla hence Zosyn was given, IV fluids were restricted because of CHF patient placed on BiPAP on arrival which she uses every night will give Tamiflu admit patient for further management Differential Diagnosis Differential Diagnoses: The differential diagnosis associated with the presentation includes Admission/Observation Consideration of admission/observation: Escalation of care including admission/observation considered Consult Healthcare Provider Management of the patient was discussed with: Hospitalist Lab Data MDM Lab Attestation statement: I reviewed the patient's lab results. 10/08/24 02:31 10/08/24 06:27 Labs: Lab Results 10/08/24 10/08/24 10/08/24 Range/Units 02:31 02:32 02:41 WBC 14.3 H (4.8-10.8) X10*3/uL RBC 3.77 L (4.20-5.50) X10*6/uL Hgb 9.2 L (12.0-16.0) g/dl Hct 31.3 L (37.0-47.0) % MCV 83.0 (80.0-98.0) fL MCH 24.4 L (27.0-33.0) pg MCHC 29.4 L (31.0-35.0) g/dl RDW 15.8 (11.0-16.0) % Plt Count 185 D (160-400) X10*3/uL MPV 10.2 (9.4-12.3) fL Immature Gran % (Auto) 0.6 H (0.0-0.4) % Neut % (Auto) 90.5 H (45-73) % Lymph % (Auto) 2.7 L (20-40) % Barnes % (Auto) 4.7 (2-11) % Eos % (Auto) 1.3 (0-4) % Baso % (Auto) 0.2 (0-2) % Lymph # (Auto) 0.4 L (1.2-4.9) X10*3/uL Barnes # (Auto) 0.7 (0.1-1.2) X10*3/uL Eos # (Auto) 0.2 (0.0-0.4) X10*3/uL Baso # (Auto) 0.0 (0.0-0.2) X10*3/uL Abs Immat Gran (auto) 0.08 H (0.00-0.03) X10*3/uL Absolute Neuts (auto) 12.9 H (2.0-8.3) x10*3/uL Absolute Nucleated RBC 0.000 (0.0-0.012) X10*3/uL Nucleated RBC % (auto) 0.0 (0.0-0.2) /100WBC Smear Tech's Comments VERIFIED PT 11.8 (10.9-12.4) SEC INR 1.0 (0.9-1.1) VBG pH 7.40 (7.32-7.43) VBG pCO2 70 mmHg VBG pO2 44 mmHg VBG HCO3 44 H (22-26) mmol/L VBG O2 Saturation 73.0 % VBG Base Excess 16.9 mmol/L Sodium 145 (135-145) mmol/L Potassium 4.4 (3.3-5.1) mmol/L Chloride 100 (96-108) mmol/L Carbon Dioxide 35 H (22-29) mmol/L Anion Gap 14 (12-20) BUN 20 H (9-16) mg/dL Creatinine 0.88 (0.5-1.4) mg/dL Estim Creat Clear Calc 82.4 Estimated GFR > 60 Random Glucose 141 H (60-115) mg/dL Lactic Acid 0.6 (0.5-2.0) mmol/L Calcium 9.2 D (8.4-10.2) mg/dL Magnesium 1.8 (1.6-2.6) mg/dL Total Bilirubin 0.3 (0.0-1.0) mg/dL AST 17 (5-31) U/L ALT 8 (0-31) U/L Alkaline Phosphatase 103 (39-117) U/L Troponin I High Sens 5.9 D (<3.5-17.0) ng/L Total Protein 7.5 (6.5-8.0) g/dL Albumin 3.7 (3.5-5.0) g/dL Influenza Type A (PCR) POSITIVE A (Negative) Influenza Type B (PCR) NEGATIVE (Negative) RSV RNA Qual (PCR) NEGATIVE (Negative) SARS-CoV-2 RNA (RT-PCR) NEGATIVE (Negative) Independent Interpretation I performed an independent interpretation of an: EKG Interpretation: Sinus tachycardia with ventricular rate of 101 beats per minute prolonged NE interval no acute STT wave changes no acute ischemia Radiology Impression Discussion of test interpretation with radiology: I have reviewed the radiologist's reading. Radiologist Impression: Findings: Study is mildly limited by large body habitus. There appears to be pulmonary vascular congestion and mild interstitial opacities in the mid to lower lungs similar to the prior study and suggestive of mild interstitial edema. No definite effusion is seen. Cardiomegaly appears stable. IMPRESSION: Findings as above. Discharge Plan Discharge Clinical Impression: Acute on chronic respiratory failure with hypoxia and hypercapnia, Influenza A, Abscess of right axilla Patient Disposition: Admitted As Inpatient
[2024-10-08 02:47] LABS: Prothrombin Time 11.8 SEC (10.9-12.4)
[2024-10-08 02:59] LABS: Lactic Acid 0.6 mmol/L (0.5-2.0)
[2024-10-08 03:03] LABS: Alanine Aminotransferase 8 U/L (0-31); Albumin Level 3.7 g/dL (3.5-5.0); Alkaline Phosphatase 103 U/L (39-117); Anion Gap 14 (12-20); Aspartate Amino Transferase 17 U/L (5-31); Bilirubin Total 0.3 mg/dL (0.0-1.0); Blood Urea Nitrogen 20 mg/dL (9-16); Calcium 9.2 mg/dL (8.4-10.2); Carbon Dioxide 35 mmol/L (22-29); Chloride 100 mmol/L (96-108); Creatinine Clr Calc Pharmacy 82.4; Estimated Glomerular Filt Rate > 60; Glucose Random 141 mg/dL (60-115); Magnesium 1.8 mg/dL (1.6-2.6); Potassium 4.4 mmol/L (3.3-5.1); Sodium 145 mmol/L (135-145); Total Protein 7.5 g/dL (6.5-8.0)
[2024-10-08 03:05] LABS: SLIDE REVIEW VERIFIED
[2024-10-08] MEDS: 0.9 % Sodium Chloride 1,000 ML 999 ML IV (03:05)
[2024-10-08 03:06] LABS: Troponin-I High Sensitivity 5.9 ng/L (<3.5-17.0)
[2024-10-08] MEDS: Piperacillin Sodium/Tazobactam 3.375 GM in 0.9 % Sodium Chloride 50 ML IV (03:06)
--- NOTE | 2024-10-08 03:11 | PC.NURSE ---
Pt a&ox4, reporting sob Pt reports a flu sick contact Pt denies pain at this time Pt on oxymask @ 6L RT with pt Pt medicated per mar Plan of care ongoing
[2024-10-08 03:20] LABS: Influenza A PCR POSITIVE (Negative); Influenza B PCR NEGATIVE (Negative); Resp Syncy Virus RNA Qual PCR NEGATIVE (Negative); SARS COV2 PCR INHOUSE NEGATIVE (Negative)
[2024-10-08] MEDS: Albuterol Sulfate 7.5 MG, Albuterol Sulfate (0.083%) 2.5 MG 10 MG INHALE (03:38)
[2024-10-08] MEDS: Oseltamivir Phosphate 75 MG CAPSULE PO ×2 (03:50→20:07)
[2024-10-08] MEDS: methylPREDNISolone Sod Succ 125 MG/2 ML VIAL IVPUSH (03:51)
--- NOTE | 2024-10-08 03:53 | PC.NURSE ---
Pt medicated per [facility] Plan of care ongoing.
--- NOTE | 2024-10-08 05:33 | P.HPHOSP_ITS ---
History of Present Illness Date of Service: 10/08/24 Attending physician on admission: Jesus Greene Chief Complaint: SOB, URI sx Pt is a 64-year-old female past medical history significant for COPD, chronic respiratory failure on 4-6 L O2, BiPAP at night, paroxysmal AFib (no anticoagulant), obesity, with a recent admission due to acute hypercarbic respiratory failure from oxygen induced hypercapnia with ICU stay and axillary abscess, who presented to the ED due to shortness of breath, cough with yellow sputum, wheezing, fever starting around 15:00 yesterday. She reports that she was not feeling well in the morning and could tell that she was coming down with an illness and once her daughter came home from work around 22:30 she noticed that she was extra short of breath and brought her to the emergency department. The patient reports that she has been seeing wound care since her discharge recently and has been taking her antibiotics as prescribed but has had copious amount of purulent drainage from her right axillary abscess. She denies any increased pain in the right axilla. Review of Systems 2 Constitutional: Constitutional: Reports body ache(s), Reports chills, Reports fatigue, Reports fever(s) and Reports headache(s) Eyes: Eyes: Denies change in vision and Denies photophobia ENT: Reports headache(s), Reports nasal congestion, Reports nasal discharge and Reports sore throat Cardiovascular: Cardiovascular: Denies chest pain, Denies rapid heart rate, Denies leg edema, Denies lightheadedness and Reports dyspnea Respiratory: Respiratory: Reports chest congestion, Reports cough, Reports dyspnea and Reports wheezing Gastrointestinal: Gastrointestinal: Denies diarrhea, Denies nausea and Denies vomiting Genitourinary: Genitourinary: Denies hematuria, Denies dysuria and Denies urinary urgency Musculoskeletal: Musculoskeletal: Reports myalgias Integumentary/Breasts: Skin/Breast: Reports as per HPI Neurologic: Denies confusion and Reports headache(s) Psychiatric: Psychiatric: Denies confusion Endocrine: Endocrine: Reports fatigue Hematologic/Lymphatic: Hematologic/Lymphatic: Denies easy bleeding and Denies easy bruising Allergic/Immunologic: Allergic/Immunologic: Reports wheezing [facility] Medical History VERN (acute kidney injury) COPD (chronic obstructive pulmonary disease) Enterococcus faecalis infection MSSA (methicillin susceptible Staphylococcus aureus) MRSA (methicillin resistant staph aureus) culture positive Encounter for management of wound VAC Chronic osteomyelitis Hypertension Iron deficiency anemia COPD (chronic obstructive pulmonary disease) Femur fracture Crohn's colitis Morbid obesity due to excess calories Closed tibia fracture Acute on chronic respiratory failure with hypoxia and hypercapnia Nonrheumatic mitral (valve) stenosis Paroxysmal atrial fibrillation Dyspnea Hypoventilation associated with obesity Pickwickian syndrome Chronic hypercapnic respiratory failure Opioid use disorder Family History Other Adopted Surgical History Hx of cholecystectomy History of open reduction and internal fixation (ORIF) procedure Status post open reduction and internal fixation (ORIF) of fracture Recent surgical procedure on lower extremity Social History Household Members: Spouse and Children Household Members Other:: , Hoa. Daughter Carolyn, 21. Daughter's Boyfriend, 22. Neice, 21 Housing: House Do you presently have visiting nurse or other home services: Yes (wound care) Alcohol intake: never Comment: COUNTS CORRECT Patient Tobacco Use Status: Former Tobacco user Years Smoked: 25 Smoked in Last 30 Days: No e-Cigarette/Vaping Use: Never Used Second Hand Smoke Exposure: No Use of substances other than those prescribed or required for medical reasons: No Advance Directives: Yes Advance Directives on File: Yes Advance Directives Date on File: 12/16/20 service: No Current occupational status: disabled Cognitive needs: No Hearing needs: No Vision needs: Yes Narrative: no smoking, etoh or drug use Meds Allergies Allergy/AdvReac Type Severity Reaction Status Date / Time gabapentin Allergy Mild Anxiety Verified 10/08/24 02:41 morphine [MORPHINE] Allergy Unknown ANAPHALAXIS, Verified 10/08/24 02:41 anaphylaxis propofol [From Diprivan] Allergy Anaphylaxis Verified 10/08/24 02:41 Active Medications: Current Medications Acetaminophen (Acetaminophen 325 Mg Tablet) 975 mg PO Q6H PRN PRN Reason: Pain, Mild 1-3,fever,headache Albuterol/Ipratropium (Albuterol/Iprat 2.5/0.5mg 3 Ml Ampul.Neb) 3 ml INHALE RQ4H WHILE AWAKE BEN Ampicillin Sodium/Sulbactam Sodium (Ampicillin Sodium/Sulbactam Na 3 Gm Vial) 3 gm IM Q6H [facility] Calcium Carbonate (Calcium Carbonate 750 Mg Tab.Chew) 750 mg PO Q4H PRN PRN Reason: Heartburn Clonazepam (Clonazepam 0.5 Mg Tablet) 0.5 mg PO BID PRN PRN Reason: Anxiety Enoxaparin Sodium (Enoxaparin Sodium 40 Mg/0.4 Ml Syringe) 40 mg SUBCUT Q12H [facility] Hydromorphone HCl (Hydromorphone Hcl 0.5 Mg/0.5 Ml Syringe) 0.5 mg IVPUSH Q4H PRN; Protocol PRN Reason: Pain, Severe (Pain Scale 7-10) Doxycycline Hyclate 100 mg/ (Sodium Chloride) 250 mls @ 166.67 mls/hr IV Q12H [facility] Magnesium Hydroxide (Milk Of Magnesia 30 Ml Oral.Susp) 30 ml PO DAILY PRN PRN Reason: Constipation Melatonin (Melatonin 3 Mg Tablet) 6 mg PO BEDTIME PRN PRN Reason: Insomnia Methylprednisolone Sodium Succinate (Methylprednisolone Sod Succ 40 Mg/Ml Vial) 40 mg IVPUSH Q12H [facility] Ondansetron HCl (Ondansetron Hcl 4 Mg/2 Ml Vial) 4 mg IVPUSH Q8H PRN PRN Reason: Nausea and Vomiting Oseltamivir Phosphate (Oseltamivir Phosphate 75 Mg Capsule) 75 mg PO BID [facility] Stop: 10/12/24 21:01 Oxycodone HCl (Oxycodone Hcl Immed Release 5 Mg Tablet) 20 mg PO Q6H PRN PRN Reason: Pain, Severe (Pain Scale 7-10) Polyethylene Glycol (Polyethylene Glycol 3350 17 Gm Powd.Pack) 17 gm PO DAILY PRN PRN Reason: Constipation Sodium Chloride (0.9 % Sodium Chloride Flush 3 Ml Syringe) 3 ml IVFLUSH QSHIFT [facility] Home Medications ?Medication ?Instructions ?Recorded ?Confirmed ?Last Taken ?Type fluticasone fur. 100 mcg-umeclid 1 ea inhalation DAILY 04/24/24 10/03/24 09/27/24 History 62.5 mcg-vilant 25 mcg inhalat.powder (Trelegy Ellipta) cholecalciferol (vitamin D3) 50 50 mcg PO DAILY 05/21/24 10/03/24 09/27/24 History mcg (2,000 unit) tablet clonazepam 0.5 mg tablet 0.5 mg PO BID PRN Anxiety 05/21/24 10/03/24 Unknown History temazepam 30 mg capsule 30 mg PO BEDTIME PRN Sleep 05/21/24 10/03/24 09/27/24 History acetaminophen 500 mg tablet 1,000 mg PO TID PRN Pain 09/28/24 10/03/24 Unknown History clonazepam 1 mg tablet 1 mg PO DAILY 09/28/24 10/03/24 09/27/24 History meloxicam 15 mg tablet 15 mg PO DAILY 09/28/24 10/03/24 09/27/24 History omeprazole 20 mg tablet,delayed 20 mg PO DAILY@0630 09/28/24 10/03/24 09/27/24 History release oxycodone 5 mg tablet 10 mg PO 5XD 09/28/24 10/03/24 09/27/24 History Physical Exam 2 Vital Signs and Narrative: Vital Signs: Last Vital Signs Temp 101.3 F H 10/08/24 05:26 Pulse 86 10/08/24 05:26 Resp 20 10/08/24 05:26 BP 127/43 L 10/08/24 05:26 Pulse Ox 94 10/08/24 05:26 O2 Del Method BiPAP 10/08/24 05:26 Oxygen Flow Rate 9 10/08/24 02:39 BMI result Body Mass Index 53.2 General: AOx3, mild respiratory distress, on bipap for sleep Resp: rhonchorous, expriatory wheezing, no crackles CVS: S1, S2, RRR GI: +BS, NT, no distention Skin: Warm, dry. purulent drainage from open abscess right axilla Neuro: Cranial nerves II-XII grossly intact bilaterally. Motor grossly intact bilaterally Extremities: No pitting edema Psych: Appropriate affect Const: General: No confusion Orientation/consciousness: No confusion Eyes: Direct Ophthalmoscopy: No photophobia Neuro: General: No confusion Results Labs 10/08/24 02:31 10/08/24 02:31 Labs: Laboratory Results - last 24 hr 10/08/24 10/08/24 10/08/24 02:31 02:32 02:41 MCV 83.0 MCH 24.4 L MCHC 29.4 L RDW 15.8 Plt Count 185 D MPV 10.2 Immature Gran % (Auto) 0.6 H Neut % (Auto) 90.5 H Lymph % (Auto) 2.7 L [place] % (Auto) 4.7 Eos % (Auto) 1.3 Baso % (Auto) 0.2 Lymph # (Auto) 0.4 L [place] # (Auto) 0.7 Eos # (Auto) 0.2 Baso # (Auto) 0.0 Abs Immat Gran (auto) 0.08 H Absolute Neuts (auto) 12.9 H Absolute Nucleated RBC 0.000 Nucleated RBC % (auto) 0.0 Smear Tech's Comments VERIFIED PT 11.8 INR 1.0 VBG pH 7.40 VBG pCO2 70 VBG pO2 44 VBG HCO3 44 H VBG O2 Saturation 73.0 VBG Base Excess 16.9 Anion Gap 14 Estim Creat Clear Calc 82.4 Estimated GFR > 60 Random Glucose 141 H Lactic Acid 0.6 Calcium 9.2 D Magnesium 1.8 Total Bilirubin 0.3 AST 17 ALT 8 Alkaline Phosphatase 103 Total Protein 7.5 Albumin 3.7 Influenza Type A (PCR) POSITIVE A Influenza Type B (PCR) NEGATIVE RSV RNA Qual (PCR) NEGATIVE SARS-CoV-2 RNA (RT-PCR) NEGATIVE Assessment and Plan (1) Acute on chronic respiratory failure with hypoxia and hypercapnia: Status: Acute (2) Sepsis: Status: Acute (3) Acute exacerbation of chronic obstructive pulmonary disease: Status: Acute (4) Abscess of right axilla: Status: Acute (5) Cellulitis of axilla: Status: Acute (6) Influenza A: Status: Acute (7) BMI 50.0-59.9, adult: Status: Acute Plan Pt is a 64-year-old female past medical history significant for COPD, chronic respiratory failure on 4-6 L O2, BiPAP at night, paroxysmal AFib (no anticoagulant), obesity, with a recent admission due to acute hypercarbic respiratory failure from oxygen induced hypercapnia with ICU stay and axillary abscess, who presented to the ED due to shortness of breath, cough with yellow sputum, wheezing, fever starting around 15:00 yesterday. Sepsis secondary to cellulitis/abscess right axilla - WBC 14.3, tachycardic and tachypneic, lactic acid normal, blood cultures x2 pending, not severe sepsis - unable to obtain chest CT to re-evaluate abscess as patient is unable to lie flat, await surgeon's recommendations - restarted Unasyn and doxycycline from previous admission - surgical consult - wound care consult - follow CBC and BMP Acute on chronic respiratory failure with hypoxia and hypercapnia with acute COPD exacerbation secondary to flu A - VBG with acute mixed respiratory and metabolic alkalosis, improved with BiPAP for sleep - flu A positive - chest x-ray with pulmonary vascular congestion and mild interstitial opacities in the mid to lower lung similar to prior study and suggestive of interstitial edema, no effusion seen - started on Tamiflu in ED, continue - supportive care for flu - DuoNebs q.4h while awake - Solu-Medrol 40 mg b.i.d. - on doxycycline and Unasyn as above - follow CBC and BMP Chronic anemia - H&H stable - monitor CBC Paroxysmal AFib - EKG sinus tachycardia - continue home meds Obesity - BMI 53.2 - weight loss encouraged Full code VTE prophylaxis: Lovenox Patient with sepsis secondary to cellulitis/abscess right axilla, complicated by acute on chronic respiratory failure with hypoxia and hypercapnia with acute COPD exacerbation secondary to flu a, requiring admission for at least 2 midnights stay for IV antibiotics, surgical consultation and monitoring. Quality Stroke Does the patient have a stroke diagnosis?: No VTE Prior VTE?: No VTE Risk Level:: Medical - moderate - high VTE Device Contraindication: Treatment Not Indicated VTE Drug Contraindication: N/A - Med Ordered
[2024-10-08] MEDS: Doxycycline Hyclate 100 MG in 0.9 % Sodium Chloride 250 ML 166.67 MG IV ×2 (05:51→16:53)
[2024-10-08] MEDS: Enoxaparin Sodium 40 MG/0.4 ML SYRINGE SUBCUT ×2 (05:51→16:56)
[2024-10-08 06:50] LABS: Anion Gap 13 (12-20); Blood Urea Nitrogen 19 mg/dL (9-16); Calcium 8.7 mg/dL (8.4-10.2); Carbon Dioxide 33 mmol/L (22-29); Chloride 102 mmol/L (96-108); Creatinine Clr Calc Pharmacy 88.4; Estimated Glomerular Filt Rate > 60; Glucose Random 182 mg/dL (60-115); Potassium 4.2 mmol/L (3.3-5.1); Sodium 144 mmol/L (135-145)
[2024-10-08 06:59] LABS: Basophils Percent Auto 0.2 % (0-2); Eosinophils Percent Auto 0.2 % (0-4); Hematocrit 29.5 % (37.0-47.0); Hemoglobin 8.6 g/dl (12.0-16.0); Imm Gran Abs Auto 0.09 X10*3/uL (0.00-0.03); Imm Gran Pct Auto 0.7 % (0.0-0.4); Lymphocytes Absolute Auto 0.2 X10*3/uL (1.2-4.9); Lymphocytes Percent Auto 1.5 % (20-40); MANUAL DIFF FLAG SCAN; Mean Corpuscular HGB Conc 29.2 g/dl (31.0-35.0); Mean Corpuscular Hemoglobin 24.4 pg (27.0-33.0); Mean Corpuscular Volume 83.8 fL (80.0-98.0); Mean Platelet Volume 10.6 fL (9.4-12.3); Monocytes Absolute Auto 0.2 X10*3/uL (0.1-1.2); Monocytes Percent Auto 1.3 % (2-11); Neutrophils Absolute Auto 11.7 x10*3/uL (2.0-8.3); Neutrophils Percent Auto 96.1 % (45-73); Platelet Count 192 X10*3/uL (160-400); Red Blood Count 3.52 X10*6/uL (4.20-5.50); Red Cell Distribution Width 15.9 % (11.0-16.0); SCAN SMEAR FLAG 1; White Blood Count 12.1 X10*3/uL (4.8-10.8)
[2024-10-08] MEDS: Ampicillin Sodium/Sulbactam Na 3 GM in 0.9 % Sodium Chloride 100 ML IV ×3 (07:46→21:51)
[2024-10-08] MEDS: Acetaminophen 1,000 MG/100 ML PIGGYBACK 400 MG IV (07:46)
[2024-10-08] MEDS: Albuterol/Iprat 2.5/0.5MG 3 ML AMPUL.NEB INHALE ×4 (07:50→22:23)
--- NOTE | 2024-10-08 07:53 | PC.NURSE ---
this RN resumed care of pt at 0645. pt a&ox4. vss and up to date aside from being febrile. pt noted to be febrile but no medications were administered overnight. nsr on the group burner machine. pt currently remains on personal bipap from home. d/t pt being on bipap - admitting provider requested for IV tylenol. medication administered per provider order. effectiveness pending. pt otherwise denies pain. has no complaints. no respiratory distress noted. no sob/wob noted. respirations even/unlabored. plan of care ongoing. call chavez placed within reach.
--- NOTE | 2024-10-08 08:49 | PHA.MEDREC ---
Pharmacy Consult ? Medication Reconciliation Pharmacy has completed the medication reconciliation. Spoke with patient at bed side. Pt states oxycodone dose was increased to 20mg 5xday. Pt has completed 2 days of 7 day course for Augmentin, doxycycline, and nystatin. Pt states she takes meloxcam prn for pain, however there are no clams for this for over a year. This was left off the med rec.
--- NOTE | 2024-10-08 13:16 | P.EN_ITS ---
Event Note Date of Service: 10/08/24 Event Note: Admitted for acute on chronic respiratory failure with hypoxia and hypercapnia with acute COPD exacerbation secondary to influenza A Recently discharged from [facility] on October 01 after receiving treatment for right axillary abscess At present complaining of right axillary discomfort and serosanguineous drainage Complaining of persistent cough and shortness of breath requesting for pain medication Recent echo showed EF 50-55% with impaired relaxation, [id number] pulmonary hypertension. Chest x-ray showed pulmonary vascular congestion and mild interstitial opacities in the mid to lower lung similar to prior study suggestive of mild interstitial edema On exam Awake alert in no acute distress talking in full sentences Right axilla previous site of I and D clean with serosanguineous discharge and surrounding induration, ED provider noted purulent discharge from wound Lungs diminished breath sounds with prolonged expiratory phase. Extremities no edema chronic skin changes A/P Sepsis secondary to cellulitis/abscess right axilla continue IV Unasyn and doxycycline, follow surgical consult, WBC trending down, follow blood culture. Acute on chronic respiratory failure with hypoxia and hypercapnia with acute COPD exacerbation secondary to flu A VBG with acute mixed respiratory and metabolic alkalosis, improved with BiPAP for sleep Continue Tamiflu / DuoNebs q.4h while awake/ Solu-Medrol 40 mg b.i.d. [id number] pulmonary hypertension will give 1 dose of IV Lasix and continue by mouth Lasix 20 mg b.i.d. Morbid obesity recommend low-calorie diet Paroxysmal atrial fibrillation not on anticoagulation on Cardizem CD. Chronic normocytic anemia. Mood disorder Lovenox Time Spent With Patient Time: Total time managing care of this patient today ____ minutes.
[2024-10-08] MEDS: Furosemide 20 MG/2 ML VIAL IVPUSH (13:58)
[2024-10-08] MEDS: clonazePAM 0.5 MG TABLET PO ×2 (13:58→22:08)
--- NOTE | 2024-10-08 15:10 | PM.CNGS ---
History of Present Illness Consult details Consult date: 10/08/24 Narrative: Patient was a 64-year-old female with a plethora of comorbidities intercurrent medical problems. She was recently hospitalized within the last week or so ago among other issues for right axillary abscess. This was taken the OR and incised and drained and packing placed. Surgical consult was for evaluation of right axillary wound. She herself has no right axillary wound issues or symptoms. She has been undergoing daily dressing and packing changes. Chart was reviewed and patient evaluated PMFSH Past Medical History Medical History VERN (acute kidney injury) COPD (chronic obstructive pulmonary disease) Enterococcus faecalis infection MSSA (methicillin susceptible Staphylococcus aureus) MRSA (methicillin resistant staph aureus) culture positive Encounter for management of wound VAC Chronic osteomyelitis Hypertension Iron deficiency anemia COPD (chronic obstructive pulmonary disease) Femur fracture Crohn's colitis Morbid obesity due to excess calories Closed tibia fracture Acute on chronic respiratory failure with hypoxia and hypercapnia Nonrheumatic mitral (valve) stenosis Paroxysmal atrial fibrillation Dyspnea Hypoventilation associated with obesity Pickwickian syndrome Chronic hypercapnic respiratory failure Opioid use disorder Family History Family History Other Adopted Surgical History Surgical History Hx of cholecystectomy History of open reduction and internal fixation (ORIF) procedure Status post open reduction and internal fixation (ORIF) of fracture Recent surgical procedure on lower extremity Social History Social History Household Members: Spouse and Children Household Members Other:: , Hoa. Daughter Carolyn, 21. Daughter's Boyfriend, 22. Neice, 21 Housing: House Do you presently have visiting nurse or other home services: Yes Alcohol intake: never Comment: COUNTS CORRECT Patient Tobacco Use Status: Former Tobacco user Years Smoked: 25 Smoked in Last 30 Days: No e-Cigarette/Vaping Use: Never Used Second Hand Smoke Exposure: No Use of substances other than those prescribed or required for medical reasons: No Have you been hit, kicked, punched, or otherwise hurt by someone within the past year? If so, by whom?: No Do you feel safe in your current relationship?: Yes Is there a partner from a previous relationship who is making you feel unsafe now?: No Are you made to feel afraid or neglected: No Advance Directives: Yes Advance Directives on File: Yes Advance Directives Date on File: 12/16/20 Do you have a plan to hurt others: No Plan Recently lost weight without trying: No Nutrition Risks: No Nutritional Risk Patient : No : No Poor oral hygiene: No service: No Current occupational status: disabled Cognitive needs: No Hearing needs: No Vision needs: Yes Meds Allergies Allergy/AdvReac Type Severity Reaction Status Date / Time gabapentin Allergy Mild Anxiety Verified 10/08/24 02:41 morphine [MORPHINE] Allergy Unknown ANAPHALAXIS, Verified 10/08/24 02:41 anaphylaxis propofol [From Diprivan] Allergy Anaphylaxis Verified 10/08/24 02:41 Active Medications: Current Medications Acetaminophen (Acetaminophen 325 Mg Tablet) 975 mg PO Q6H PRN PRN Reason: Pain, Mild 1-3,fever,headache Albuterol/Ipratropium (Albuterol/Iprat 2.5/0.5mg 3 Ml Ampul.Neb) 3 ml INHALE RQ4H WHILE AWAKE [facility] Last Admin: 10/08/24 10:56 Dose: 3 ml Atorvastatin Calcium (Atorvastatin Calcium 80 Mg Tablet) 80 mg PO DAILY [facility] Calcium Carbonate (Calcium Carbonate 750 Mg Tab.Chew) 750 mg PO Q4H PRN PRN Reason: Heartburn Clonazepam (Clonazepam 0.5 Mg Tablet) 0.5 mg PO BID PRN PRN Reason: Anxiety Last Admin: 10/08/24 13:58 Dose: 0.5 mg Clonazepam (Clonazepam 1 Mg Tablet) 1 mg PO DAILY [facility] Enoxaparin Sodium (Enoxaparin Sodium 40 Mg/0.4 Ml Syringe) 40 mg SUBCUT Q12H BEN Last Admin: 10/08/24 05:51 Dose: 40 mg Fluticasone/Umeclidinium/Vilanterol (Fluticasone/Umeclidinium/Vilanterol 100/62.5/25 Blst.W.Dev) 1 puff INHALE RDAILY [facility] Furosemide (Furosemide 20 Mg Tablet) 20 mg PO BID [facility]; Protocol Guaifenesin/Dextromethorphan (Guaifenesin Dm 200/20/10 Ml 10 Ml Syrup) 10 ml PO Q6H PRN PRN Reason: Cough Hydromorphone HCl (Hydromorphone Hcl 0.5 Mg/0.5 Ml Syringe) 0.5 mg IVPUSH Q4H PRN; Protocol PRN Reason: Pain, Severe (Pain Scale 7-10) Doxycycline Hyclate 100 mg/ (Sodium Chloride) 250 mls @ 166.67 mls/hr IV Q12H [facility] Last Infusion: 10/08/24 07:47 Dose: Infused Ampicillin Sodium/Sulbactam (Sodium 3 gm/ Sodium Chloride) 100 mls @ 200 mls/hr IV Q6H [facility] Last Infusion: 10/08/24 08:17 Dose: Infused Magnesium Hydroxide (Milk Of Magnesia 30 Ml Oral.Susp) 30 ml PO DAILY PRN PRN Reason: Constipation Melatonin (Melatonin 3 Mg Tablet) 6 mg PO BEDTIME PRN PRN Reason: Insomnia Methylprednisolone Sodium Succinate (Methylprednisolone Sod Succ 40 Mg/Ml Vial) 40 mg IVPUSH Q12H [facility] Non-Formulary Medication (Theophylline [Roque-24]) 400 mg PO DAILY [facility] Nystatin (Nystatin Powder 15 Gm Bottle) 1 appl TOPICAL BID [facility]; Protocol Omeprazole (Omeprazole 20 Mg Capsule.Dr) 20 mg PO DAILY@0630 [facility] Ondansetron HCl (Ondansetron Hcl 4 Mg/2 Ml Vial) 4 mg IVPUSH Q8H PRN PRN Reason: Nausea and Vomiting Oseltamivir Phosphate (Oseltamivir Phosphate 75 Mg Capsule) 75 mg PO BID [facility] Stop: 10/12/24 21:01 Oxycodone HCl (Oxycodone Hcl Immed Release 5 Mg Tablet) 20 mg PO Q6H PRN PRN Reason: Pain, Severe (Pain Scale 7-10) Polyethylene Glycol (Polyethylene Glycol 3350 17 Gm Powd.Pack) 17 gm PO DAILY PRN PRN Reason: Constipation Sodium Chloride (0.9 % Sodium Chloride Flush 3 Ml Syringe) 3 ml IVFLUSH QSHIFT [facility] Last Admin: 10/08/24 07:46 Dose: Not Given Temazepam (Temazepam 15 Mg Capsule) 30 mg PO BEDTIME PRN PRN Reason: Sleep Vitamin D (Cholecalciferol (Vitamin D3) 25 Mcg Tablet) 50 mcg PO DAILY [facility] Home Medications ?Medication ?Instructions ?Recorded ?Confirmed ?Last Taken ?Type fluticasone fur. 100 mcg-umeclid 1 ea inhalation DAILY 04/24/24 10/08/24 10/07/24 History 62.5 mcg-vilant 25 mcg inhalat.powder (Trelegy Ellipta) cholecalciferol (vitamin D3) 50 50 mcg PO DAILY 05/21/24 10/08/24 10/07/24 History mcg (2,000 unit) tablet clonazepam 0.5 mg tablet 0.5 mg PO BID PRN Anxiety 05/21/24 10/08/24 10/07/24 History temazepam 30 mg capsule 30 mg PO BEDTIME PRN Sleep 05/21/24 10/08/24 10/07/24 History acetaminophen 500 mg tablet 1,000 mg PO TID PRN Pain 09/28/24 10/08/24 10/07/24 History clonazepam 1 mg tablet 1 mg PO DAILY 09/28/24 10/08/24 10/07/24 History omeprazole 20 mg tablet,delayed 20 mg PO DAILY@0630 09/28/24 10/08/24 10/07/24 History release oxycodone 5 mg tablet 20 mg PO 5XD 09/28/24 10/08/24 10/07/24 History atorvastatin 80 mg tablet 80 mg PO DAILY 10/08/24 10/08/24 10/07/24 History Physical Exam Vital Signs: Vital Signs: Last Vital Signs Temp 97.6 F 10/08/24 11:51 Pulse 78 10/08/24 11:51 Resp 22 H 10/08/24 11:51 BP 130/63 10/08/24 13:58 Pulse Ox 97 10/08/24 11:51 O2 Del Method Oxymask 10/08/24 11:51 O2 Flow Rate 6 10/08/24 11:51 Oxygen Flow Rate 9 10/08/24 02:39 BMI result Body Mass Index 54.9 Extrem: Other: Right axilla demonstrates a granulating wound measuring roughly 3 cm in diameter. This was initially evaluated and there were no loculations or undrained areas. Serous fluid was retrieved. Dressing was applied. Results Labs 10/08/24 06:27 10/08/24 06:27 Labs: Abnormal lab results 10/08/24 10/08/24 10/08/24 Range/Units 02:31 02:32 02:41 WBC 14.3 H (4.8-10.8) X10*3/uL RBC 3.77 L (4.20-5.50) X10*6/uL Hgb 9.2 L (12.0-16.0) g/dl Hct 31.3 L (37.0-47.0) % MCH 24.4 L (27.0-33.0) pg MCHC 29.4 L (31.0-35.0) g/dl Immature Gran % (Auto) 0.6 H (0.0-0.4) % Neut % (Auto) 90.5 H (45-73) % Lymph % (Auto) 2.7 L (20-40) % [place] % (Auto) (2-11) % Lymph # (Auto) 0.4 L (1.2-4.9) X10*3/uL Abs Immat Gran (auto) 0.08 H (0.00-0.03) X10*3/uL Absolute Neuts (auto) 12.9 H (2.0-8.3) x10*3/uL VBG HCO3 44 H (22-26) mmol/L Carbon Dioxide 35 H (22-29) mmol/L BUN 20 H (9-16) mg/dL Random Glucose 141 H (60-115) mg/dL Influenza Type A (PCR) POSITIVE A (Negative) 10/08/24 Range/Units 06:27 WBC 12.1 H (4.8-10.8) X10*3/uL RBC 3.52 L (4.20-5.50) X10*6/uL Hgb 8.6 L (12.0-16.0) g/dl Hct 29.5 L (37.0-47.0) % MCH 24.4 L (27.0-33.0) pg MCHC 29.2 L (31.0-35.0) g/dl Immature Gran % (Auto) 0.7 H (0.0-0.4) % Neut % (Auto) 96.1 H (45-73) % Lymph % (Auto) 1.5 L (20-40) % [place] % (Auto) 1.3 L (2-11) % Lymph # (Auto) 0.2 L (1.2-4.9) X10*3/uL Abs Immat Gran (auto) 0.09 H (0.00-0.03) X10*3/uL Absolute Neuts (auto) 11.7 H (2.0-8.3) x10*3/uL VBG HCO3 (22-26) mmol/L Carbon Dioxide 33 H (22-29) mmol/L BUN 19 H (9-16) mg/dL Random Glucose 182 H (60-115) mg/dL Influenza Type A (PCR) (Negative) Short CBC 10/08/24 10/08/24 Range/Units 02:31 06:27 WBC 14.3 H 12.1 H (4.8-10.8) X10*3/uL Hgb 9.2 L 8.6 L (12.0-16.0) g/dl Hct 31.3 L 29.5 L (37.0-47.0) % Plt Count 185 D 192 (160-400) X10*3/uL BMP 10/08/24 10/08/24 02:31 06:27 Sodium 145 144 Potassium 4.4 4.2 Chloride 100 102 Carbon Dioxide 35 H 33 H BUN 20 H 19 H Creatinine 0.88 0.82 Calcium 9.2 D 8.7 Liver Function 10/08/24 Range/Units 02:31 Total Bilirubin 0.3 (0.0-1.0) mg/dL AST 17 (5-31) U/L ALT 8 (0-31) U/L Alkaline Phosphatase 103 (39-117) U/L Albumin 3.7 (3.5-5.0) g/dL All other labs normal. Assessment and Plan (1) Abscess of right axilla: Status: Acute (2) Status post incision and drainage: Status: Acute Plan At present, continue local wound care and form dressing changes. We will wound care service returns Wednesday, have then please consult on the patient for possible abdomen which was in 8 or other recommendations per their protocol. Surgery will otherwise follow-up p.r.n.. Procedures Date of Service Date of Service: 10/08/24
[2024-10-08] MEDS: oxyCODONE HCl Immed Release 5 MG TABLET 20 MG PO ×2 (15:17→23:44)
--- NOTE | 2024-10-08 16:02 | MHC.CM.PN ---
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
[2024-10-08] MEDS: methylPREDNISolone Sod Succ 40 MG/ML VIAL IVPUSH (16:55)
[2024-10-08] MEDS: Furosemide 20 MG TABLET PO (20:07)
[2024-10-08] MEDS: 0.9 % Sodium Chloride Flush 3 ML SYRINGE IVFLUSH (20:08)
[2024-10-08] MEDS: Nystatin Powder 15 GM BOTTLE 1 APPL TOPICAL (22:09)
[2024-10-09] VITALS (8 sets, daily range): BP systolic 129–149; BP diastolic 63–70; PULSE 57–75; RESP 18–20; TEMP 36.2–36.8; O2SAT 88–98
[2024-10-09] MEDS: Ampicillin Sodium/Sulbactam Na 3 GM in 0.9 % Sodium Chloride 100 ML IV ×4 (03:15→19:25)
[2024-10-09] MEDS: methylPREDNISolone Sod Succ 40 MG/ML VIAL IVPUSH ×2 (05:02→17:08)
[2024-10-09] MEDS: Doxycycline Hyclate 100 MG in 0.9 % Sodium Chloride 250 ML 166.67 MG IV ×2 (05:02→17:10)
[2024-10-09] MEDS: Omeprazole 20 MG CAPSULE.DR PO (05:03)
[2024-10-09] MEDS: Enoxaparin Sodium 40 MG/0.4 ML SYRINGE SUBCUT ×2 (05:03→17:09)
[2024-10-09 07:15] LABS: Hematocrit 27.6 % (37.0-47.0); Hemoglobin 7.8 g/dl (12.0-16.0); Imm Gran Abs Auto 0.14 X10*3/uL (0.00-0.03); Imm Gran Pct Auto 1.7 % (0.0-0.4); Lymphocytes Absolute Auto 0.3 X10*3/uL (1.2-4.9); Lymphocytes Percent Auto 3.3 % (20-40); MANUAL DIFF FLAG SCAN; Mean Corpuscular HGB Conc 28.3 g/dl (31.0-35.0); Mean Corpuscular Hemoglobin 24.1 pg (27.0-33.0); Mean Corpuscular Volume 85.2 fL (80.0-98.0); Mean Platelet Volume 10.7 fL (9.4-12.3); Monocytes Absolute Auto 0.2 X10*3/uL (0.1-1.2); Monocytes Percent Auto 2.9 % (2-11); Neutrophils Absolute Auto 7.5 x10*3/uL (2.0-8.3); Neutrophils Percent Auto 92.1 % (45-73); Platelet Count 174 X10*3/uL (160-400); Red Blood Count 3.24 X10*6/uL (4.20-5.50); Red Cell Distribution Width 15.6 % (11.0-16.0); SCAN SMEAR FLAG 1; White Blood Count 8.2 X10*3/uL (4.8-10.8)
[2024-10-09 07:26] LABS: Anion Gap 13 (12-20); Blood Urea Nitrogen 23 mg/dL (9-16); Calcium 8.9 mg/dL (8.4-10.2); Carbon Dioxide 33 mmol/L (22-29); Chloride 102 mmol/L (96-108); Creatinine Clr Calc Pharmacy 92.4; Estimated Glomerular Filt Rate > 60; Glucose Random 198 mg/dL (60-115); Potassium 4.6 mmol/L (3.3-5.1); Sodium 143 mmol/L (135-145)
[2024-10-09 07:36] LABS: SLIDE REVIEW VERIFIED
[2024-10-09] MEDS: Albuterol/Iprat 2.5/0.5MG 3 ML AMPUL.NEB INHALE ×2 (07:39→19:05)
[2024-10-09] MEDS: 0.9 % Sodium Chloride Flush 3 ML SYRINGE IVFLUSH ×3 (08:00→20:02)
[2024-10-09] MEDS: Cholecalciferol (Vitamin D3) 25 MCG TABLET 50 MCG PO (08:23)
[2024-10-09] MEDS: Furosemide 20 MG TABLET PO ×2 (08:24→19:58)
[2024-10-09] MEDS: Oseltamivir Phosphate 75 MG CAPSULE PO ×2 (08:24→19:58)
[2024-10-09] MEDS: clonazePAM 1 MG TABLET PO (08:24)
[2024-10-09] MEDS: Nystatin Powder 15 GM BOTTLE 1 APPL TOPICAL ×2 (08:24→20:02)
[2024-10-09] MEDS: Atorvastatin Calcium 80 MG TABLET PO (08:24)
[2024-10-09 08:56] LABS: Immature Retic Fraction 11.8 % (3.0-15.9); Retic HGB Equivalent 21.9 pg (30.0-35.0); Reticulocyte Percent 1.8 % (0.5-1.8); Reticulocytes Absolute 0.058 X10*6/uL (0.026-0.095)
[2024-10-09 09:11] LABS: Iron 24 mcg/dL (30-160); Lactate Dehydrogenase 268 U/L (122-220); Percent Iron Saturation 10 % (15-50); Total Iron Binding Capacity 229 mcg/dL (228-428); Unsaturated Iron Binding 205 ug/dL
[2024-10-09 09:24] LABS: Ferritin 90 ng/mL (10-250)
[2024-10-09] MEDS: dilTIAZem HCL CD 240 MG CAP.ER.DEG PO (11:36)
[2024-10-09] MEDS: Theophylline Anhydrous ER 400 MG TAB.ER.24H PO (11:36)
[2024-10-09] MEDS: Fluticasone/Umeclidinium/Vilanterol 100/62.5/25 BLST.W.DEV 1 PUFF INHALE (11:50)
[2024-10-09] MEDS: guaiFENesin LA 600 MG TAB.ER.12H PO ×2 (12:06→19:58)
[2024-10-09] MEDS: oxyCODONE HCl Immed Release 5 MG TABLET 20 MG PO ×3 (13:16→19:57)
--- NOTE | 2024-10-09 13:39 | HO.WOUND ---
Wound Consult: Initial 64yr old?female admitted to [facility] on 10/08/24 - See progress notes and H&P for detailed history.? Wound consult placed for Right Axilla and coccyx area.? Patient agreeable to assessment and photo documentation. Chart review reveals she had I&D of Right Axilla in ED along with OR debridement last admission. She currently is admissted with Flu A. In the periwound is a large approximate 5cm movable mass - patient reports she has had that for day or two prior to ED arrival. The skin is intact, pigmentation within normal limits no redness no warmth and no fluctuance noted. A firm induration / mass noted no topical intervention needed for mass at this time will defer back to provider for assessment. The I&D site can be packed with small piece of durafiber and dry gauze dressing. Buttock Etiology: ??MASD Present on Admission Measurements: 4cm x 0.1cm x 0.1cm Wound Bed: macerated tissue with in crease and pink linear tissue noted- remains blanchable Drainage / Odor: None Edges: ? linear Jossie wound: ?[place] blanchble tissue No Induration, Fluctuance or Warmth noted Pain: denies Goals of Treatment: ? barrier cream to protect from moisture and friction Right Axilla Etiology: ?Abscess debridement Present on Admission Measurements: 0.2cm x 4cm x 5cm Wound Bed: difficult to assess Drainage / Odor: serosang purulent drainage - no odor Edges: ? well defined Jossie wound: Fungal Dermatitis and MASD - palpable mass noted - small than assessment last admission prior to OR debridement - ? No Induration, Fluctuance or Warmth noted Pain: tenderness noted Goals of Treatment: ? Durafiber packing for moisture management - will TT provider at pt request with s/s of mass continued . Dr Dash per pt request. Recommendations: 1. Turn and Reposition every 2 hours and as needed for patient comfort.? Use pillows or wedges to support off loading positions. 2. Off Load all bony prominences with use of pillows and heel boots if needed.? Apply Preventative foams where needed. ? 3. Monitor for incontinence and moisture control, use barrier creams when needed for prevention and treatment. 4. Provide adequate and supplemental nutrition.? 5. Continue low air loss mattress. 6. When applicable maintain blood glucose levels per Providers order. 7. Perineal Area and buttock - Off Load Pressure with Q2 hr turns and use of pillows - Cleanse with PH balance spray or wipes, pat dry. ?Apply thin layer of barrier cream to affected area.? Apply twice daily and Reapply thin layer PRN after each episode of incontinence. 8. Bridge of nose - Apply skin prep be sure to avoid eyes. Allow to dry. Cover bridge of nose with Mepilex Lite when BiPAP is in use. 9. Right Axilla - Cleanse and irrigate with NS, Pat dry.? Apply antifungal powder dust off excess followed by skin prep to seal in place, lightly pack with Durafiber AG, be sure to leave a wick to easy removal.? Cover with dry dressing.? Change daily while inpatient.. Re-consult wound care Nurse for wound deterioration or wound changes.
--- NOTE | 2024-10-09 15:49 | HO.PM.IMPN ---
Subjective Subjective Date of Service: 10/09/24 Interval History: breathing improved but still requiring BiPAP much of the day coughing up sputum no fever Review of Systems Review of Systems: Yes all other systems are reviewed and are negative Physical Exam Vital Signs: Vital Signs: Last Vital Signs Temp 97.7 F 10/09/24 10:35 Pulse 71 10/09/24 12:00 Resp 18 10/09/24 12:00 BP 147/65 H 10/09/24 10:35 Pulse Ox 90 L 10/09/24 10:35 O2 Del Method BiPAP 10/09/24 10:35 O2 Flow Rate 8 10/08/24 19:54 Oxygen Flow Rate 9 10/08/24 02:39 BMI result Body Mass Index 54.9 Gen: mild resp distress HEENT: sclera anicteric, moist mucus membranes Neck: supple Lungs: diminished Heart: regular rate and rhythm, no murmurs Abd: soft, non-tender, non-distended, obese Ext: no edema Skin: warm/well-perfused, R axila with drained abscess Neuro: alert and oriented x3, no focal findings Psych: appropriate affect Objective Data Active Medications Acetaminophen (Acetaminophen 325 Mg Tablet) 975 mg PO Q6H PRN PRN Reason: Pain, Mild 1-3,fever,headache Albuterol/Ipratropium (Albuterol/Iprat 2.5/0.5mg 3 Ml Ampul.Neb) 3 ml INHALE RQ4H WHILE AWAKE [facility] Last Admin: 10/09/24 15:39 Dose: Not Given Documented By: WILVER Non-Admin Reason: Patient Refused Albuterol/Ipratropium (Albuterol/Iprat 2.5/0.5mg 3 Ml Ampul.Neb) 3 ml INHALE RQ4H WHILE AWAKE PRN PRN Reason: Shortness of Breath Last Admin: 10/08/24 22:23 Dose: 3 ml Documented By: JOSE MANUEL Atorvastatin Calcium (Atorvastatin Calcium 80 Mg Tablet) 80 mg PO DAILY [facility] Last Admin: 10/09/24 08:24 Dose: 80 mg Documented By: BETHANIE Benzonatate (Benzonatate 100 Mg Capsule) 100 mg PO TID PRN PRN Reason: Cough Calcium Carbonate (Calcium Carbonate 750 Mg Tab.Chew) 750 mg PO Q4H PRN PRN Reason: Heartburn Clonazepam (Clonazepam 0.5 Mg Tablet) 0.5 mg PO BID PRN PRN Reason: Anxiety Last Admin: 10/08/24 22:08 Dose: 0.5 mg Documented By: GEETHA Comments: approved Clonazepam (Clonazepam 1 Mg Tablet) 1 mg PO DAILY [facility] Last Admin: 10/09/24 08:24 Dose: 1 mg Documented By: BETHANIE Diltiazem HCl (Diltiazem Hcl Cd 240 Mg Cap.Er.Deg) 240 mg PO DAILY [facility]; Protocol Last Admin: 10/09/24 11:36 Dose: 240 mg Documented By: BETHANIE Enoxaparin Sodium (Enoxaparin Sodium 40 Mg/0.4 Ml Syringe) 40 mg SUBCUT Q12H [facility] Last Admin: 10/09/24 05:03 Dose: 40 mg Documented By: GEETHA Fluticasone/Umeclidinium/Vilanterol (Fluticasone/Umeclidinium/Vilanterol 100/62.5/25 Blst.W.Dev) 1 puff INHALE RDAILY [facility] Last Admin: 10/09/24 11:50 Dose: 1 puff Documented By: WILVER Furosemide (Furosemide 20 Mg Tablet) 20 mg PO BID [facility]; Protocol Last Admin: 10/09/24 08:24 Dose: 20 mg Documented By: BETHANIE Guaifenesin (Guaifenesin La 600 Mg Tab.Er.12h) 600 mg PO BID [facility] Last Admin: 10/09/24 12:06 Dose: 600 mg Documented By: BETHANIE Guaifenesin/Dextromethorphan (Guaifenesin Dm 200/20/10 Ml 10 Ml Syrup) 10 ml PO Q6H PRN PRN Reason: Cough Hydromorphone HCl (Hydromorphone Hcl 0.5 Mg/0.5 Ml Syringe) 0.5 mg IVPUSH Q4H PRN; Protocol PRN Reason: Pain, Severe (Pain Scale 7-10) Doxycycline Hyclate 100 mg/ (Sodium Chloride) 250 mls @ 166.67 mls/hr IV Q12H [facility] Last Infusion: 10/09/24 06:43 Dose: Infused Documented By: GEETHA Ampicillin Sodium/Sulbactam (Sodium 3 gm/ Sodium Chloride) 100 mls @ 200 mls/hr IV Q6H [facility] Last Infusion: 10/09/24 14:00 Dose: Infused Documented By: BETHANIE Magnesium Hydroxide (Milk Of Magnesia 30 Ml Oral.Susp) 30 ml PO DAILY PRN PRN Reason: Constipation Melatonin (Melatonin 3 Mg Tablet) 6 mg PO BEDTIME PRN PRN Reason: Insomnia Methylprednisolone Sodium Succinate (Methylprednisolone Sod Succ 40 Mg/Ml Vial) 40 mg IVPUSH Q12H [facility] Last Admin: 10/09/24 05:02 Dose: 40 mg Documented By: GEETHA Nystatin (Nystatin Powder 15 Gm Bottle) 1 appl TOPICAL BID [facility]; Protocol Last Admin: 10/09/24 08:24 Dose: 1 appl Documented By: BETHANIE Omeprazole (Omeprazole 20 Mg Capsule.) 20 mg PO DAILY@0630 [facility] Last Admin: 10/09/24 05:03 Dose: 20 mg Documented By: GEETHA Ondansetron HCl (Ondansetron Hcl 4 Mg/2 Ml Vial) 4 mg IVPUSH Q8H PRN PRN Reason: Nausea and Vomiting Oseltamivir Phosphate (Oseltamivir Phosphate 75 Mg Capsule) 75 mg PO BID [facility] Stop: 10/12/24 21:01 Last Admin: 10/09/24 08:24 Dose: 75 mg Documented By: BETHANIE Oxycodone HCl (Oxycodone Hcl Immed Release 5 Mg Tablet) 20 mg PO 5XD [facility] Last Admin: 10/09/24 13:16 Dose: 20 mg Documented By: BETHANIE Polyethylene Glycol (Polyethylene Glycol 3350 17 Gm Powd.Pack) 17 gm PO DAILY PRN PRN Reason: Constipation Sodium Chloride (0.9 % Sodium Chloride Flush 3 Ml Syringe) 3 ml IVFLUSH QSHIFT [facility] Last Admin: 10/09/24 08:00 Dose: 3 ml Documented By: BETHANIE Temazepam (Temazepam 15 Mg Capsule) 30 mg PO BEDTIME PRN PRN Reason: Sleep Theophylline (Theophylline Anhydrous Er 400 Mg Tab.Er.24h) 400 mg PO DAILY [facility] Last Admin: 10/09/24 11:36 Dose: 400 mg Documented By: BETHANIE Vitamin D (Cholecalciferol (Vitamin D3) 25 Mcg Tablet) 50 mcg PO DAILY [facility] Last Admin: 10/09/24 08:23 Dose: 50 mcg Documented By: BETHANIE Labs 10/09/24 06:49 10/09/24 06:49 Labs: Laboratory Results - last 24 hr 10/09/24 06:49 MCV 85.2 MCH 24.1 L MCHC 28.3 L RDW 15.6 Plt Count 174 MPV 10.7 Immature Gran % (Auto) 1.7 H Neut % (Auto) 92.1 H Lymph % (Auto) 3.3 L [place] % (Auto) 2.9 Eos % (Auto) 0.0 Baso % (Auto) 0.0 Lymph # (Auto) 0.3 L [place] # (Auto) 0.2 Eos # (Auto) 0.0 Baso # (Auto) 0.0 Abs Immat Gran (auto) 0.14 H Absolute Neuts (auto) 7.5 Absolute Nucleated RBC 0.000 Nucleated RBC % (auto) 0.0 Smear Tech's Comments VERIFIED Absolute Retic 0.058 Percent Retic 1.8 Immature Retic Fraction 11.8 Retic Hgb Equivalent 21.9 L Anion Gap 13 Estim Creat Clear Calc 92.4 Estimated GFR > 60 Random Glucose 198 H Calcium 8.9 Iron 24 L TIBC 229 % Saturation 10 L Unsat Iron Binding 205 Ferritin 90 Lactate Dehydrogenase 268 H Microbiology Microbiology Results: Microbiology 10/08/24 02:42 Blood Culture - Preliminary Blood - Venous No growth after 24 hours. 10/08/24 02:31 Blood Culture - Preliminary Blood - Venous No growth after 24 hours. Assessment and Plan (1) Acute exacerbation of chronic obstructive pulmonary disease: Status: Acute Plan d2 for 64yo F with HFpEF, COPD, obesity, chronic osteomyelitis, chronic hypercarbic/hypoxic resp failure on home O2 + nighttime BiPAP recently admitted for R axillary abscess for which she underwent I+D and grew MSSA presenting with cough and dyspnea, admitted for sepsis due to cellulitis/abscess, acute/chronic respiratory failure with COPD exacerbation due to flu A acute/chronic respiratory failure with hypoxia/hypercapnea with acute COPD exacerbation to influenza A - continue BiPAP at sleep and with naps, continue oseltamivir 10/08-10/12, methylprednisolone, nebs, doxycycline 10/08-, Trelegy, theophylline sepsis due to cellulitis/abscess R axilla - ampicillin-sulbactam 10/08-, Surgery + Wound Care consulted acute/chronic HFpEF - continue furosemide, changed IV to PO pAF - continue diltiazem; not on anticoagulation normocytic anemia - check iron studies, B12/folate mood disorder - clonazepam VTE ppx - enoxaparin dispo - TBD In my clinical judgment, the patient requires continued inpatient hospitalization for the following reasons: hypoxia/hypercarbia, IV ABX Total time managing care of this patient today: 40 minutes. Quality Stroke Does the patient have a stroke diagnosis?: No VTE Prior VTE?: No VTE Risk Level:: Medical - moderate - high VTE Device Contraindication: Treatment Not Indicated VTE Drug Contraindication: N/A - Med Ordered
[2024-10-10] VITALS (10 sets, daily range): BP systolic 110–174; BP diastolic 53–71; PULSE 58–86; RESP 15–23; TEMP 35.9–36.9; O2SAT 93–99
[2024-10-10] MEDS: Ampicillin Sodium/Sulbactam Na 3 GM in 0.9 % Sodium Chloride 100 ML IV ×4 (01:17→21:04)
[2024-10-10] MEDS: clonazePAM 0.5 MG TABLET PO (01:24)
[2024-10-10] MEDS: oxyCODONE HCl Immed Release 5 MG TABLET 20 MG PO ×5 (05:21→21:05)
[2024-10-10] MEDS: Omeprazole 20 MG CAPSULE.DR PO (05:21)
[2024-10-10] MEDS: Enoxaparin Sodium 40 MG/0.4 ML SYRINGE SUBCUT ×2 (05:22→17:24)
[2024-10-10] MEDS: methylPREDNISolone Sod Succ 40 MG/ML VIAL IVPUSH ×2 (05:22→17:24)
[2024-10-10] MEDS: Doxycycline Hyclate 100 MG in 0.9 % Sodium Chloride 250 ML 166.67 MG IV (05:22)
--- NOTE | 2024-10-10 07:35 | HE.PHANOTE ---
DOXY IV TO PO PATIENT MEETS REQUIREMENTS FOR IV TO PO CONVERSION OF DOXT. DOSE AND FREQUENCY REMAINED THE SAME. AM DOSE GIVEN NEXT DOSE 10/10 @ 2100
[2024-10-10 07:36] LABS: Basophils Percent Auto 0.1 % (0-2); Hematocrit 28.8 % (37.0-47.0); Hemoglobin 8.3 g/dl (12.0-16.0); Imm Gran Abs Auto 0.18 X10*3/uL (0.00-0.03); Imm Gran Pct Auto 1.3 % (0.0-0.4); Lymphocytes Absolute Auto 0.4 X10*3/uL (1.2-4.9); Lymphocytes Percent Auto 3.2 % (20-40); MANUAL DIFF FLAG SCAN; Mean Corpuscular HGB Conc 28.8 g/dl (31.0-35.0); Mean Corpuscular Hemoglobin 24.6 pg (27.0-33.0); Mean Corpuscular Volume 85.2 fL (80.0-98.0); Mean Platelet Volume 10.6 fL (9.4-12.3); Monocytes Absolute Auto 0.6 X10*3/uL (0.1-1.2); Neutrophils Absolute Auto 12.5 x10*3/uL (2.0-8.3); Neutrophils Percent Auto 91.4 % (45-73); Platelet Count 205 X10*3/uL (160-400); Red Blood Count 3.38 X10*6/uL (4.20-5.50); Red Cell Distribution Width 15.8 % (11.0-16.0); SCAN SMEAR FLAG 1; White Blood Count 13.6 X10*3/uL (4.8-10.8)
[2024-10-10 07:48] LABS: Anion Gap 10 (12-20); Blood Urea Nitrogen 26 mg/dL (9-16); Calcium 8.6 mg/dL (8.4-10.2); Carbon Dioxide 36 mmol/L (22-29); Chloride 101 mmol/L (96-108); Estimated Glomerular Filt Rate > 60; Glucose Random 187 mg/dL (60-115); Potassium 4.6 mmol/L (3.3-5.1); Sodium 142 mmol/L (135-145)
[2024-10-10] MEDS: Albuterol/Iprat 2.5/0.5MG 3 ML AMPUL.NEB INHALE ×3 (07:50→15:19)
[2024-10-10] MEDS: 0.9 % Sodium Chloride Flush 3 ML SYRINGE IVFLUSH ×3 (07:50→21:05)
[2024-10-10] MEDS: Oseltamivir Phosphate 75 MG CAPSULE PO ×2 (07:51→21:04)
[2024-10-10] MEDS: Cholecalciferol (Vitamin D3) 25 MCG TABLET 50 MCG PO (07:51)
[2024-10-10] MEDS: clonazePAM 1 MG TABLET PO (07:51)
[2024-10-10] MEDS: dilTIAZem HCL CD 240 MG CAP.ER.DEG PO (07:51)
[2024-10-10] MEDS: guaiFENesin LA 600 MG TAB.ER.12H PO ×2 (07:51→21:04)
[2024-10-10] MEDS: Theophylline Anhydrous ER 400 MG TAB.ER.24H PO (07:52)
[2024-10-10] MEDS: Atorvastatin Calcium 80 MG TABLET PO (07:52)
[2024-10-10] MEDS: Furosemide 20 MG TABLET PO ×2 (07:52→21:05)
[2024-10-10] MEDS: Nystatin Powder 15 GM BOTTLE 1 APPL TOPICAL (07:53)
[2024-10-10 08:03] LABS: Venous Blood Gas Refer to POC result
[2024-10-10 08:09] LABS: VBG Base Excess 14.2 mmol/L; VBG HCO3 42 mmol/L (22-26); VBG pCO2 77 mmHg; VBG pH 7.34 (7.32-7.43); VBG pO2 96 mmHg
[2024-10-10 08:10] LABS: SLIDE REVIEW VERIFIED
[2024-10-10 08:25] LABS: Folate 4.1 ng/mL (> or = 4.0); Vitamin B12 406 pg/mL (200-900)
--- NOTE | 2024-10-10 10:59 | HO.PM.IMPN ---
Subjective Subjective Date of Service: 10/10/24 Interval History: breathing minimally improved; still in BiPAP most of the day Review of Systems Review of Systems: Yes all other systems are reviewed and are negative Physical Exam Vital Signs: Vital Signs: Last Vital Signs Temp 97.2 F 10/10/24 07:18 Pulse 58 10/10/24 07:51 Resp 18 10/10/24 07:51 BP 169/67 H 10/10/24 07:18 Pulse Ox 97 10/10/24 07:18 O2 Del Method BiPAP 10/10/24 07:18 O2 Flow Rate 6 10/09/24 16:00 Oxygen Flow Rate 9 10/08/24 02:39 BMI result Body Mass Index 54.9 Gen: mild resp distress HEENT: sclera anicteric, moist mucus membranes Neck: supple Lungs: diminished Heart: regular rate and rhythm, no murmurs Abd: soft, non-tender, non-distended, obese Ext: no edema Skin: warm/well-perfused, R axila with drained abscess and minimal surrounding erythema + induration Neuro: alert and oriented x3, no focal findings Psych: appropriate affect Objective Data Active Medications Acetaminophen (Acetaminophen 325 Mg Tablet) 975 mg PO Q6H PRN PRN Reason: Pain, Mild 1-3,fever,headache Albuterol/Ipratropium (Albuterol/Iprat 2.5/0.5mg 3 Ml Ampul.Neb) 3 ml INHALE RQ4H WHILE AWAKE [facility] Last Admin: 10/10/24 07:50 Dose: 3 ml Documented By: JEAN-PAUL Albuterol/Ipratropium (Albuterol/Iprat 2.5/0.5mg 3 Ml Ampul.Neb) 3 ml INHALE RQ4H WHILE AWAKE PRN PRN Reason: Shortness of Breath Last Admin: 10/08/24 22:23 Dose: 3 ml Documented By: JOSE MANUEL Atorvastatin Calcium (Atorvastatin Calcium 80 Mg Tablet) 80 mg PO DAILY [facility] Last Admin: 10/10/24 07:52 Dose: 80 mg Documented By: OSEAS Benzonatate (Benzonatate 100 Mg Capsule) 100 mg PO TID PRN PRN Reason: Cough Calcium Carbonate (Calcium Carbonate 750 Mg Tab.Chew) 750 mg PO Q4H PRN PRN Reason: Heartburn Clonazepam (Clonazepam 0.5 Mg Tablet) 0.5 mg PO BID PRN PRN Reason: Anxiety Last Admin: 10/10/24 01:24 Dose: 0.5 mg Documented By: GEETHA Clonazepam (Clonazepam 1 Mg Tablet) 1 mg PO DAILY [facility] Last Admin: 10/10/24 07:51 Dose: 1 mg Documented By: OSEAS Diltiazem HCl (Diltiazem Hcl Cd 240 Mg Cap.Er.Deg) 240 mg PO DAILY [facility]; Protocol Last Admin: 10/10/24 07:51 Dose: 240 mg Documented By: OSEAS Doxycycline Monohydrate (Doxycycline Monohydrate 100 Mg Capsule) 100 mg PO Q12H [facility] Enoxaparin Sodium (Enoxaparin Sodium 40 Mg/0.4 Ml Syringe) 40 mg SUBCUT Q12H [facility] Last Admin: 10/10/24 05:22 Dose: 40 mg Documented By: GEETHA Fluticasone/Umeclidinium/Vilanterol (Fluticasone/Umeclidinium/Vilanterol 100/62.5/25 Blst.W.Dev) 1 puff INHALE RDAILY [facility] Last Admin: 10/09/24 11:50 Dose: 1 puff Documented By: WILVER Furosemide (Furosemide 20 Mg Tablet) 20 mg PO BID [facility]; Protocol Last Admin: 10/10/24 07:52 Dose: 20 mg Documented By: OSEAS Guaifenesin (Guaifenesin La 600 Mg Tab.Er.12h) 600 mg PO BID [facility] Last Admin: 10/10/24 07:51 Dose: 600 mg Documented By: OSEAS Guaifenesin/Dextromethorphan (Guaifenesin Dm 200/20/10 Ml 10 Ml Syrup) 10 ml PO Q6H PRN PRN Reason: Cough Hydromorphone HCl (Hydromorphone Hcl 0.5 Mg/0.5 Ml Syringe) 0.5 mg IVPUSH Q4H PRN; Protocol PRN Reason: Pain, Severe (Pain Scale 7-10) Ampicillin Sodium/Sulbactam (Sodium 3 gm/ Sodium Chloride) 100 mls @ 200 mls/hr IV Q6H [facility] Last Infusion: 10/10/24 08:22 Dose: Infused Documented By: OSEAS Magnesium Hydroxide (Milk Of Magnesia 30 Ml Oral.Susp) 30 ml PO DAILY PRN PRN Reason: Constipation Melatonin (Melatonin 3 Mg Tablet) 6 mg PO BEDTIME PRN PRN Reason: Insomnia Methylprednisolone Sodium Succinate (Methylprednisolone Sod Succ 40 Mg/Ml Vial) 40 mg IVPUSH Q12H [facility] Last Admin: 10/10/24 05:22 Dose: 40 mg Documented By: GEETHA Nystatin (Nystatin Powder 15 Gm Bottle) 1 appl TOPICAL BID [facility]; Protocol Last Admin: 10/10/24 07:53 Dose: 1 appl Documented By: OSEAS Omeprazole (Omeprazole 20 Mg Capsule.Dr) 20 mg PO DAILY@0630 [facility] Last Admin: 10/10/24 05:21 Dose: 20 mg Documented By: GEETHA Ondansetron HCl (Ondansetron Hcl 4 Mg/2 Ml Vial) 4 mg IVPUSH Q8H PRN PRN Reason: Nausea and Vomiting Oseltamivir Phosphate (Oseltamivir Phosphate 75 Mg Capsule) 75 mg PO BID [facility] Stop: 10/12/24 21:01 Last Admin: 10/10/24 07:51 Dose: 75 mg Documented By: OSEAS Oxycodone HCl (Oxycodone Hcl Immed Release 5 Mg Tablet) 20 mg PO 5XD [facility] Last Admin: 10/10/24 10:17 Dose: 20 mg Documented By: OSEAS Polyethylene Glycol (Polyethylene Glycol 3350 17 Gm Powd.Pack) 17 gm PO DAILY PRN PRN Reason: Constipation Sodium Chloride (0.9 % Sodium Chloride Flush 3 Ml Syringe) 3 ml IVFLUSH QSHIFT [facility] Last Admin: 10/10/24 07:50 Dose: 3 ml Documented By: OSEAS Temazepam (Temazepam 15 Mg Capsule) 30 mg PO BEDTIME PRN PRN Reason: Sleep Theophylline (Theophylline Anhydrous Er 400 Mg Tab.Er.24h) 400 mg PO DAILY [facility] Last Admin: 10/10/24 07:52 Dose: 400 mg Documented By: OSEAS Vitamin D (Cholecalciferol (Vitamin D3) 25 Mcg Tablet) 50 mcg PO DAILY [facility] Last Admin: 10/10/24 07:51 Dose: 50 mcg Documented By: OSEAS Labs 10/10/24 06:58 10/10/24 06:58 Labs: Laboratory Results - last 24 hr 10/10/24 10/10/24 06:58 08:05 MCV 85.2 MCH 24.6 L MCHC 28.8 L RDW 15.8 Plt Count 205 MPV 10.6 Immature Gran % (Auto) 1.3 H Neut % (Auto) 91.4 H Lymph % (Auto) 3.2 L [place] % (Auto) 4.0 Eos % (Auto) 0.0 Baso % (Auto) 0.1 Lymph # (Auto) 0.4 L [place] # (Auto) 0.6 Eos # (Auto) 0.0 Baso # (Auto) 0.0 Abs Immat Gran (auto) 0.18 H Absolute Neuts (auto) 12.5 H Absolute Nucleated RBC 0.000 Nucleated RBC % (auto) 0.0 Smear Tech's Comments VERIFIED VBG pH 7.34 VBG pCO2 77 VBG pO2 96 VBG HCO3 42 H VBG O2 Saturation 99.0 VBG Base Excess 14.2 Anion Gap 10 L Estim Creat Clear Calc 87.0 Estimated GFR > 60 Random Glucose 187 H Calcium 8.6 Vitamin B12 406 Folate 4.1 Microbiology Microbiology Results: Microbiology 10/08/24 02:42 Blood Culture - Preliminary Blood - Venous No growth after 48 hours. 10/08/24 02:31 Blood Culture - Preliminary Blood - Venous No growth after 48 hours. Assessment and Plan (1) Acute exacerbation of chronic obstructive pulmonary disease: Status: Acute Plan d3 for 64yo F with HFpEF, COPD, obesity, chronic osteomyelitis, chronic hypercarbic/hypoxic resp failure on home O2 + nighttime BiPAP recently admitted for R axillary abscess for which she underwent I+D and grew MSSA presenting with cough and dyspnea, admitted for sepsis due to cellulitis/abscess, acute/chronic respiratory failure with COPD exacerbation due to flu A acute/chronic respiratory failure with hypoxia/hypercapnea with acute COPD exacerbation to influenza A - continue BiPAP at sleep and with naps, continue oseltamivir 10/08-10/12, continue methylprednisolone 10/08-, standing/prn nebs, continue doxycycline 10/08-, Trelegy, theophylline sepsis due to cellulitis/abscess R axilla - continue ampicillin-sulbactam 10/08-, Surgery + Wound Care consulted: Cleanse and irrigate with NS, Pat dry.? Apply antifungal powder dust off excess followed by skin prep to seal in place, lightly pack with Durafiber AG, be sure to leave a wick to easy removal.? Cover with dry dressing.? Change daily while inpatient acute/chronic HFpEF - continue furosemide, changed IV to PO pAF - continue diltiazem; not on anticoagulation normocytic anemia - probably iron deficiency + chronic inflammation; replete Fe mood disorder - clonazepam VTE ppx - enoxaparin dispo - TBD In my clinical judgment, the patient requires continued inpatient hospitalization for the following reasons: hypoxia/hypercarbia, IV ABX Total time managing care of this patient today: 35 minutes. Quality Stroke Does the patient have a stroke diagnosis?: No VTE Prior VTE?: No VTE Risk Level:: Medical - moderate - high VTE Device Contraindication: Treatment Not Indicated VTE Drug Contraindication: N/A - Med Ordered
--- NOTE | 2024-10-10 13:38 | PM.PNGS ---
Subjective Subjective Date of Service: 10/10/24 <Cori Trevino PA-C - Last Filed: 10/10/24 13:42> 10/10/24 <Rambo Rendon MD - Last Filed: 10/10/24 15:02> Interval history: Asked to reassess right axillary wound, ?mass by addictions therapist and hospitalists. Patient reports area remains tender but improved. <Cori Trevino PA-C - Last Filed: 10/10/24 13:42> Physical Exam Vital Signs: Vital Signs: Last Vital Signs Temp 97.9 F 10/10/24 11:17 Pulse 65 10/10/24 11:17 Resp 15 10/10/24 11:17 BP 157/71 H 10/10/24 11:17 Pulse Ox 93 10/10/24 11:17 O2 Del Method Oxymask 10/10/24 11:17 O2 Flow Rate 6 10/10/24 11:17 Oxygen Flow Rate 9 10/08/24 02:39 BMI result Body Mass Index 54.9 <Cori Trevino PA-C - Last Filed: 10/10/24 13:42> Const: General: comfortable, no acute distress and alert <Cori Trevino PA-C - Last Filed: 10/10/24 13:42> Orientation/consciousness: patient oriented x3 <Cori Trevino PA-C - Last Filed: 10/10/24 13:42> Chest: Other: right axilla without any significant erythema or edema, I&D site remains open, packing removed, no purulent drainage noted, wound base looks clean appearing, she does have moderate persistent induration superiorly and laterally but no fluctuance palpated <Cori Trevino PA-C - Last Filed: 10/10/24 13:42> Resp: Other: on BiPaP <RANDOLPH Najera Last Filed: 10/10/24 13:42> Effort & Inspection: no respiratory distress <RANDOLPH Najera Last Filed: 10/10/24 13:42> Neuro: General: patient oriented x3 and moves all extremities <RANDOLPH Najera Last Filed: 10/10/24 13:42> Objective Data Active Medications Acetaminophen (Acetaminophen 325 Mg Tablet) 975 mg PO Q6H PRN PRN Reason: Pain, Mild 1-3,fever,headache Albuterol/Ipratropium (Albuterol/Iprat 2.5/0.5mg 3 Ml Ampul.Neb) 3 ml INHALE RQ4H WHILE AWAKE [facility] Last Admin: 10/10/24 11:10 Dose: 3 ml Documented By: JEAN-PAUL Albuterol/Ipratropium (Albuterol/Iprat 2.5/0.5mg 3 Ml Ampul.Neb) 3 ml INHALE RQ4H WHILE AWAKE PRN PRN Reason: Shortness of Breath Last Admin: 10/08/24 22:23 Dose: 3 ml Documented By: JOSE MANUEL Atorvastatin Calcium (Atorvastatin Calcium 80 Mg Tablet) 80 mg PO DAILY [facility] Last Admin: 10/10/24 07:52 Dose: 80 mg Documented By: OSEAS Benzonatate (Benzonatate 100 Mg Capsule) 100 mg PO TID PRN PRN Reason: Cough Calcium Carbonate (Calcium Carbonate 750 Mg Tab.Chew) 750 mg PO Q4H PRN PRN Reason: Heartburn Clonazepam (Clonazepam 0.5 Mg Tablet) 0.5 mg PO BID PRN PRN Reason: Anxiety Last Admin: 10/10/24 01:24 Dose: 0.5 mg Documented By: GEETHA Clonazepam (Clonazepam 1 Mg Tablet) 1 mg PO DAILY [facility] Last Admin: 10/10/24 07:51 Dose: 1 mg Documented By: OSEAS Diltiazem HCl (Diltiazem Hcl Cd 240 Mg Cap.Er.Deg) 240 mg PO DAILY [facility]; Protocol Last Admin: 10/10/24 07:51 Dose: 240 mg Documented By: OSEAS Doxycycline Monohydrate (Doxycycline Monohydrate 100 Mg Capsule) 100 mg PO Q12H [facility] Enoxaparin Sodium (Enoxaparin Sodium 40 Mg/0.4 Ml Syringe) 40 mg SUBCUT Q12H [facility] Last Admin: 10/10/24 05:22 Dose: 40 mg Documented By: GEETHA Ferrous Sulfate (Ferrous Sulfate 324 Mg Tablet.Dr) 324 mg PO DAILY [facility] Fluticasone/Umeclidinium/Vilanterol (Fluticasone/Umeclidinium/Vilanterol 100/62.5/25 Blst.W.Dev) 1 puff INHALE RDAILY [facility] Last Admin: 10/09/24 11:50 Dose: 1 puff Documented By: WILVER Furosemide (Furosemide 20 Mg Tablet) 20 mg PO BID [facility]; Protocol Last Admin: 10/10/24 07:52 Dose: 20 mg Documented By: OSEAS Guaifenesin (Guaifenesin La 600 Mg Tab.Er.12h) 600 mg PO BID [facility] Last Admin: 10/10/24 07:51 Dose: 600 mg Documented By: OSEAS Guaifenesin/Dextromethorphan (Guaifenesin Dm 200/20/10 Ml 10 Ml Syrup) 10 ml PO Q6H PRN PRN Reason: Cough Hydromorphone HCl (Hydromorphone Hcl 0.5 Mg/0.5 Ml Syringe) 0.5 mg IVPUSH Q4H PRN; Protocol PRN Reason: Pain, Severe (Pain Scale 7-10) Ampicillin Sodium/Sulbactam (Sodium 3 gm/ Sodium Chloride) 100 mls @ 200 mls/hr IV Q6H [facility] Last Infusion: 10/10/24 08:22 Dose: Infused Documented By: OSEAS Magnesium Hydroxide (Milk Of Magnesia 30 Ml Oral.Susp) 30 ml PO DAILY PRN PRN Reason: Constipation Melatonin (Melatonin 3 Mg Tablet) 6 mg PO BEDTIME PRN PRN Reason: Insomnia Methylprednisolone Sodium Succinate (Methylprednisolone Sod Succ 40 Mg/Ml Vial) 40 mg IVPUSH Q12H [facility] Last Admin: 10/10/24 05:22 Dose: 40 mg Documented By: GEETHA Nystatin (Nystatin Powder 15 Gm Bottle) 1 appl TOPICAL BID [facility]; Protocol Last Admin: 10/10/24 07:53 Dose: 1 appl Documented By: OSEAS Omeprazole (Omeprazole 20 Mg Capsule.) 20 mg PO DAILY@0630 [facility] Last Admin: 10/10/24 05:21 Dose: 20 mg Documented By: GEETHA Ondansetron HCl (Ondansetron Hcl 4 Mg/2 Ml Vial) 4 mg IVPUSH Q8H PRN PRN Reason: Nausea and Vomiting Oseltamivir Phosphate (Oseltamivir Phosphate 75 Mg Capsule) 75 mg PO BID [facility] Stop: 10/12/24 21:01 Last Admin: 10/10/24 07:51 Dose: 75 mg Documented By: OSEAS Oxycodone HCl (Oxycodone Hcl Immed Release 5 Mg Tablet) 20 mg PO 5XD [facility] Last Admin: 10/10/24 10:17 Dose: 20 mg Documented By: OSEAS Polyethylene Glycol (Polyethylene Glycol 3350 17 Gm Powd.Pack) 17 gm PO DAILY PRN PRN Reason: Constipation Sodium Chloride (0.9 % Sodium Chloride Flush 3 Ml Syringe) 3 ml IVFLUSH QSHIFT [facility] Last Admin: 10/10/24 07:50 Dose: 3 ml Documented By: OSEAS Temazepam (Temazepam 15 Mg Capsule) 30 mg PO BEDTIME PRN PRN Reason: Sleep Theophylline (Theophylline Anhydrous Er 400 Mg Tab.Er.24h) 400 mg PO DAILY [facility] Last Admin: 10/10/24 07:52 Dose: 400 mg Documented By: OSEAS Vitamin D (Cholecalciferol (Vitamin D3) 25 Mcg Tablet) 50 mcg PO DAILY [facility] Last Admin: 10/10/24 07:51 Dose: 50 mcg Documented By: OSEAS <Cori Trevino PA-C - Last Filed: 10/10/24 13:42> Labs CBC & Chem 7: 10/10/24 06:58 10/10/24 06:58 <Cori Trevino PA-C - Last Filed: 10/10/24 13:42> Labs: Laboratory Results - last 24 hr 10/10/24 10/10/24 06:58 08:05 MCV 85.2 MCH 24.6 L MCHC 28.8 L RDW 15.8 Plt Count 205 MPV 10.6 Immature Gran % (Auto) 1.3 H Neut % (Auto) 91.4 H Lymph % (Auto) 3.2 L Chambers % (Auto) 4.0 Eos % (Auto) 0.0 Baso % (Auto) 0.1 Lymph # (Auto) 0.4 L Chambers # (Auto) 0.6 Eos # (Auto) 0.0 Baso # (Auto) 0.0 Abs Immat Gran (auto) 0.18 H Absolute Neuts (auto) 12.5 H Absolute Nucleated RBC 0.000 Nucleated RBC % (auto) 0.0 Smear Tech's Comments VERIFIED VBG pH 7.34 VBG pCO2 77 VBG pO2 96 VBG HCO3 42 H VBG O2 Saturation 99.0 VBG Base Excess 14.2 Anion Gap 10 L Estim Creat Clear Calc 87.0 Estimated GFR > 60 Random Glucose 187 H Calcium 8.6 Vitamin B12 406 Folate 4.1 <Cori Trevino PA-C - Last Filed: 10/10/24 13:42> Microbiology Microbiology Results: Microbiology 10/08/24 02:42 Blood Culture - Preliminary Blood - Venous No growth after 48 hours. 10/08/24 02:31 Blood Culture - Preliminary Blood - Venous No growth after 48 hours. <Cori Trevino PA-C - Last Filed: 10/10/24 13:42> Procedures Date of Service Date of Service: 10/10/24 <Cori Trevino PA-C - Last Filed: 10/10/24 13:42> 10/10/24 <Rambo Rendon MD - Last Filed: 10/10/24 15:02> Progress Note: A&P Assessment and plan (1) Status post incision and drainage: Status: Acute <Cori Trevino PA-C - Last Filed: 10/10/24 13:42> Assessment and Plan: Right axillary abscess and cellulitis- overall wound is clean appearing and cellulitic changes appeared to be mostly resolved but she does have persistent surrounding induration of the site. WIll obtain US of the area to just ensure no residual collections. Recommend warm compresses to the area to help with the induration. Local wound care as per wound care recommendations. Patient comfortable with plan. <Cori Trevino PA-C - Last Filed: 10/10/24 13:42> Right axillary abscess and cellulitis- overall wound is clean appearing and cellulitic changes appeared to be mostly resolved but she does have persistent surrounding induration of the site. WIll obtain US of the area to just ensure no residual collections. Recommend warm compresses to the area to help with the induration. Local wound care as per wound care recommendations. Patient comfortable with plan. As noted <Rambo Rendon MD - Last Filed: 10/10/24 15:02> Time Spent With Patient Time: Total time managing care of this patient today ____ minutes. <Cori Trevino PA-C - Last Filed: 10/10/24 13:42> Quality Stroke Does the patient have a stroke diagnosis?: No <Cori Trevino PA-C - Last Filed: 10/10/24 13:42> VTE Prior VTE?: No <Cori Trevino PA-C - Last Filed: 10/10/24 13:42> VTE Risk Level:: Medical - moderate - high <Croi Trevino PA-C - Last Filed: 10/10/24 13:42> VTE Device Contraindication: Treatment Not Indicated <Cori Trevino PA-C - Last Filed: 10/10/24 13:42> VTE Drug Contraindication: N/A - Med Ordered <Cori Trevino PA-C - Last Filed: 10/10/24 13:42>
[2024-10-10 14:33] LABS: OBS Int Ctl Valid YES; OBS1 NEGATIVE (NEGATIVE)
[2024-10-10 19:54] LABS: Appearance Urine Hazy; Bacteria Urine None Seen (None Seen); Color Urine Yellow; Glucose Urine UA Negative (Negative); Leukocyte Esterase Urine Negative (Negative); Nitrite Urine Negative (Negative); Specific Gravity - Urine 1.025 (1.005-1.025); UACC Culture Trigger YES; UMIC TRIGGER UACC YES; Urine Blood Negative (Negative); Urine Ketones Negative (Negative); Urine Protein 30 (1+) mg/dL (Neg-Trace)
[2024-10-10] MEDS: Doxycycline Monohydrate 100 MG CAPSULE PO (21:04)
[2024-10-11] VITALS (8 sets, daily range): BP systolic 132–167; BP diastolic 60–74; PULSE 54–75; RESP 15–22; TEMP 36.3–36.8; O2SAT 94–98
[2024-10-11] MEDS: Ampicillin Sodium/Sulbactam Na 3 GM in 0.9 % Sodium Chloride 100 ML IV ×4 (02:58→17:22)
[2024-10-11] MEDS: Omeprazole 20 MG CAPSULE.DR PO (05:23)
[2024-10-11] MEDS: oxyCODONE HCl Immed Release 5 MG TABLET 20 MG PO ×5 (05:23→21:55)
[2024-10-11] MEDS: Enoxaparin Sodium 40 MG/0.4 ML SYRINGE SUBCUT ×2 (05:24→17:22)
[2024-10-11] MEDS: methylPREDNISolone Sod Succ 40 MG/ML VIAL IVPUSH ×2 (05:24→17:22)
[2024-10-11] MEDS: Acetaminophen 325 MG TABLET 975 MG PO (05:33)
[2024-10-11] MEDS: Fluticasone/Umeclidinium/Vilanterol 100/62.5/25 BLST.W.DEV 1 PUFF INHALE (07:34)
[2024-10-11] MEDS: Albuterol/Iprat 2.5/0.5MG 3 ML AMPUL.NEB INHALE ×2 (07:37→15:27)
[2024-10-11 07:49] LABS: Hematocrit 31.1 % (37.0-47.0); Hemoglobin 8.8 g/dl (12.0-16.0); Mean Corpuscular HGB Conc 28.3 g/dl (31.0-35.0); Mean Corpuscular Hemoglobin 24.6 pg (27.0-33.0); Mean Corpuscular Volume 86.9 fL (80.0-98.0); Mean Platelet Volume 10.5 fL (9.4-12.3); Platelet Count 220 X10*3/uL (160-400); Red Blood Count 3.58 X10*6/uL (4.20-5.50); Red Cell Distribution Width 15.7 % (11.0-16.0); White Blood Count 13.9 X10*3/uL (4.8-10.8)
[2024-10-11] MEDS: Cholecalciferol (Vitamin D3) 25 MCG TABLET 50 MCG PO (09:26)
[2024-10-11] MEDS: guaiFENesin LA 600 MG TAB.ER.12H PO ×2 (09:27→21:55)
[2024-10-11] MEDS: Furosemide 20 MG TABLET PO ×2 (09:27→21:56)
[2024-10-11] MEDS: Oseltamivir Phosphate 75 MG CAPSULE PO ×2 (09:27→21:55)
[2024-10-11] MEDS: clonazePAM 1 MG TABLET PO (09:27)
[2024-10-11] MEDS: Ferrous Sulfate 324 MG TABLET.DR PO (09:27)
[2024-10-11] MEDS: dilTIAZem HCL CD 240 MG CAP.ER.DEG PO (09:27)
[2024-10-11] MEDS: Atorvastatin Calcium 80 MG TABLET PO (09:28)
[2024-10-11] MEDS: Doxycycline Monohydrate 100 MG CAPSULE PO ×2 (09:28→21:56)
[2024-10-11] MEDS: Theophylline Anhydrous ER 400 MG TAB.ER.24H PO (09:30)
[2024-10-11] MEDS: 0.9 % Sodium Chloride Flush 3 ML SYRINGE IVFLUSH ×3 (09:31→21:56)
[2024-10-11] MEDS: Ammonium Lactate 12 % Lotion 226 GM BOTTLE 1 APPL TOPICAL ×2 (09:31→21:57)
--- NOTE | 2024-10-11 10:47 | MHC.CM.PN ---
Per ROUNDS discussion, Patient is not yet medically cleared for dc (IV ABT & IV Solu Medrol); Patient may benefit from a PT Eval to assist with disposition; CM will continue to follow.
--- NOTE | 2024-10-11 12:23 | P.PNIM_ITS ---
Subjective Subjective Date of Service: 10/11/24 Interval History: breathing improving no fever Review of Systems Review of Systems: Yes all other systems are reviewed and are negative Physical Exam 2 Vital Signs: Vital Signs: Last Vital Signs Temp 97.7 F 10/11/24 11:42 Pulse 57 10/11/24 11:42 Resp 16 10/11/24 11:42 BP 155/67 H 10/11/24 11:42 Pulse Ox 98 10/11/24 11:42 O2 Del Method BiPAP 10/11/24 11:42 O2 Flow Rate 6 10/11/24 07:46 Oxygen Flow Rate 9 10/08/24 02:39 BMI result Body Mass Index 54.9 Gen: NAD HEENT: sclera anicteric, moist mucus membranes Neck: supple Lungs: diminished Heart: regular rate and rhythm, no murmurs Abd: soft, non-tender, non-distended, obese Ext: no edema Skin: warm/well-perfused, R axila with drained abscess and minimal surrounding erythema + induration Neuro: alert and oriented x3, no focal findings Psych: appropriate affect Objective Data Active Medications Acetaminophen (Acetaminophen 325 Mg Tablet) 975 mg PO Q6H PRN PRN Reason: Pain, Mild 1-3,fever,headache Last Admin: 10/11/24 05:33 Dose: 975 mg Documented By: ANIL Albuterol/Ipratropium (Albuterol/Iprat 2.5/0.5mg 3 Ml Ampul.Neb) 3 ml INHALE RQ4H WHILE AWAKE [facility] Last Admin: 10/11/24 11:32 Dose: Not Given Documented By: JEAN-PAUL Non-Admin Reason: Patient Refused Albuterol/Ipratropium (Albuterol/Iprat 2.5/0.5mg 3 Ml Ampul.Neb) 3 ml INHALE RQ4H WHILE AWAKE PRN PRN Reason: Shortness of Breath Last Admin: 10/08/24 22:23 Dose: 3 ml Documented By: JOSE MANUEL Atorvastatin Calcium (Atorvastatin Calcium 80 Mg Tablet) 80 mg PO DAILY [facility] Last Admin: 10/11/24 09:28 Dose: 80 mg Documented By: GARY Benzonatate (Benzonatate 100 Mg Capsule) 100 mg PO TID PRN PRN Reason: Cough Calcium Carbonate (Calcium Carbonate 750 Mg Tab.Chew) 750 mg PO Q4H PRN PRN Reason: Heartburn Clonazepam (Clonazepam 0.5 Mg Tablet) 0.5 mg PO BID PRN PRN Reason: Anxiety Last Admin: 10/10/24 01:24 Dose: 0.5 mg Documented By: GEETHA Clonazepam (Clonazepam 1 Mg Tablet) 1 mg PO DAILY [facility] Last Admin: 10/11/24 09:27 Dose: 1 mg Documented By: GARY Diltiazem HCl (Diltiazem Hcl Cd 240 Mg Cap.Er.Deg) 240 mg PO DAILY [facility]; Protocol Last Admin: 10/11/24 09:27 Dose: 240 mg Documented By: GARY Doxycycline Monohydrate (Doxycycline Monohydrate 100 Mg Capsule) 100 mg PO Q12H [facility] Last Admin: 10/11/24 09:28 Dose: 100 mg Documented By: GARY Enoxaparin Sodium (Enoxaparin Sodium 40 Mg/0.4 Ml Syringe) 40 mg SUBCUT Q12H [facility] Last Admin: 10/11/24 05:24 Dose: 40 mg Documented By: ANIL Ferrous Sulfate (Ferrous Sulfate 324 Mg Tablet.Dr) 324 mg PO DAILY [facility] Last Admin: 10/11/24 09:27 Dose: 324 mg Documented By: GARY Fluticasone/Umeclidinium/Vilanterol (Fluticasone/Umeclidinium/Vilanterol 100/62.5/25 Blst.W.Dev) 1 puff INHALE RDAILY [facility] Last Admin: 10/11/24 07:34 Dose: 1 puff Documented By: JEAN-PAUL Furosemide (Furosemide 20 Mg Tablet) 20 mg PO BID [facility]; Protocol Last Admin: 10/11/24 09:27 Dose: 20 mg Documented By: GARY Guaifenesin (Guaifenesin La 600 Mg Tab.Er.12h) 600 mg PO BID [facility] Last Admin: 10/11/24 09:27 Dose: 600 mg Documented By: GARY Guaifenesin/Dextromethorphan (Guaifenesin Dm 200/20/10 Ml 10 Ml Syrup) 10 ml PO Q6H PRN PRN Reason: Cough Hydromorphone HCl (Hydromorphone Hcl 0.5 Mg/0.5 Ml Syringe) 0.5 mg IVPUSH Q4H PRN; Protocol PRN Reason: Pain, Severe (Pain Scale 7-10) Ampicillin Sodium/Sulbactam (Sodium 3 gm/ Sodium Chloride) 100 mls @ 200 mls/hr IV Q6H [facility] Last Infusion: 10/11/24 10:01 Dose: Infused Documented By: GARY Lactic Acid (Ammonium Lactate 12 % Lotion 226 Gm Bottle) 1 appl TOPICAL BID [facility]; Protocol Last Admin: 10/11/24 09:31 Dose: 1 appl Documented By: GARY Magnesium Hydroxide (Milk Of Magnesia 30 Ml Oral.Susp) 30 ml PO DAILY PRN PRN Reason: Constipation Melatonin (Melatonin 3 Mg Tablet) 6 mg PO BEDTIME PRN PRN Reason: Insomnia Methylprednisolone Sodium Succinate (Methylprednisolone Sod Succ 40 Mg/Ml Vial) 40 mg IVPUSH Q12H [facility] Last Admin: 10/11/24 05:24 Dose: 40 mg Documented By: ANIL Nystatin (Nystatin Powder 15 Gm Bottle) 1 appl TOPICAL BID [facility]; Protocol Last Admin: 10/11/24 09:31 Dose: Not Given Documented By: GARY Non-Admin Reason: Patient Refused Omeprazole (Omeprazole 20 Mg Capsule.) 20 mg PO DAILY@0630 [facility] Last Admin: 10/11/24 05:23 Dose: 20 mg Documented By: ANIL Ondansetron HCl (Ondansetron Hcl 4 Mg/2 Ml Vial) 4 mg IVPUSH Q8H PRN PRN Reason: Nausea and Vomiting Oseltamivir Phosphate (Oseltamivir Phosphate 75 Mg Capsule) 75 mg PO BID [facility] Stop: 10/12/24 21:01 Last Admin: 10/11/24 09:27 Dose: 75 mg Documented By: GARY Oxycodone HCl (Oxycodone Hcl Immed Release 5 Mg Tablet) 20 mg PO 5XD [facility] Last Admin: 10/11/24 09:28 Dose: 20 mg Documented By: GARY Polyethylene Glycol (Polyethylene Glycol 3350 17 Gm Powd.Pack) 17 gm PO DAILY PRN PRN Reason: Constipation Sodium Chloride (0.9 % Sodium Chloride Flush 3 Ml Syringe) 3 ml IVFLUSH QSHIFT [facility] Last Admin: 10/11/24 09:31 Dose: 3 ml Documented By: GARY Temazepam (Temazepam 15 Mg Capsule) 30 mg PO BEDTIME PRN PRN Reason: Sleep Theophylline (Theophylline Anhydrous Er 400 Mg Tab.Er.24h) 400 mg PO DAILY [facility] Last Admin: 10/11/24 09:30 Dose: 400 mg Documented By: GARY Vitamin D (Cholecalciferol (Vitamin D3) 25 Mcg Tablet) 50 mcg PO DAILY [facility] Last Admin: 10/11/24 09:26 Dose: 50 mcg Documented By: GARY Labs 10/11/24 07:21 10/10/24 06:58 Labs: Laboratory Results - last 24 hr 10/10/24 10/10/24 10/11/24 13:40 18:35 07:21 MCV 86.9 MCH 24.6 L MCHC 28.3 L RDW 15.7 Plt Count 220 MPV 10.5 Absolute Nucleated RBC 0.000 Nucleated RBC % (auto) 0.0 Urine Color Yellow Urine Appearance Hazy Urine pH 6.0 Ur Specific [place] 1.025 Urine Protein 30 (1+) H Urine Glucose (UA) Negative Urine Ketones Negative Urine Blood Negative Urine Nitrite Negative Ur Leukocyte Esterase Negative Urine RBC 3-5 H Urine WBC 6-10 H Ur Squamous Epith Cells 11-20 Urine Bacteria None Seen Hyaline Casts 11-20 Stool Occult Blood NEGATIVE Blood Type O Negative Antibody Screen NEGATIVE Impressions Extremity Ultrasound 10/10/24 16:46 IMPRESSION: Irregularly shaped 5.0 x 2.0 x 1.7 cm fluid collection in the right axilla consistent with residual/recurrent abscess. Echogenic material may represent packing material. Electronically signed by: Brady Blanca MD 10/11/2024 07:22 AM EDT Assessment and Plan (1) Acute exacerbation of chronic obstructive pulmonary disease: Status: Acute Plan d4 for 64yo F with HFpEF, COPD, obesity, chronic osteomyelitis, chronic hypercarbic/hypoxic resp failure on home O2 + nighttime BiPAP recently admitted for R axillary abscess for which she underwent I+D and grew MSSA presenting with cough and dyspnea, admitted for sepsis due to cellulitis/abscess, acute/chronic respiratory failure with COPD exacerbation due to flu A acute/chronic respiratory failure with hypoxia/hypercapnea with acute COPD exacerbation to influenza A - continue BiPAP at sleep and with naps, continue oseltamivir 10/08-10/12, continue methylprednisolone 10/08-, standing/prn nebs, continue doxycycline 10/08- , Trelegy, theophylline sepsis due to cellulitis/abscess R axilla - continue ampicillin-sulbactam 10/08-, Surgery + Wound Care consulted: Cleanse and irrigate with NS, Pat dry.? Apply antifungal powder dust off excess followed by skin prep to seal in place, lightly pack with Durafiber AG, be sure to leave a wick to easy removal.? Cover with dry dressing.? Change daily while inpatient . Per Surgery US finding corresponds to residual induration, scar tissue, and serous fluid; no residual abscess on digital exploration acute/chronic HFpEF - continue furosemide, changed IV to PO pAF - continue diltiazem; not on anticoagulation normocytic anemia - probably iron deficiency + chronic inflammation; replete Fe mood disorder - clonazepam VTE ppx - enoxaparin dispo - TBD In my clinical judgment, the patient requires continued inpatient hospitalization for the following reasons: hypoxia/hypercarbia, IV ABX Total time managing care of this patient today: 35 minutes. Quality Stroke Does the patient have a stroke diagnosis?: No VTE Prior VTE?: No VTE Risk Level:: Medical - moderate - high VTE Device Contraindication: Treatment Not Indicated VTE Drug Contraindication: N/A - Med Ordered
--- NOTE | 2024-10-11 14:49 | PM.PNGS ---
Subjective Subjective Date of Service: 10/11/24 Interval history: Less pain at axilla. Physical Exam Vital Signs: Vital Signs: Last Vital Signs Temp 97.7 F 10/11/24 11:42 Pulse 57 10/11/24 11:42 Resp 16 10/11/24 11:42 BP 155/67 H 10/11/24 11:42 Pulse Ox 98 10/11/24 11:42 O2 Del Method BiPAP 10/11/24 11:42 O2 Flow Rate 6 10/11/24 07:46 Oxygen Flow Rate 9 10/08/24 02:39 BMI result Body Mass Index 54.9 Const: General: no acute distress and alert Resp: Other: on BiPaP Skin: Other: right axilla I&D site remains widely open, no purulent drainage, no surrounding erythema or edema, mildly excoriated skin medially, the axillary wound is overall clean appearing, no palpable fluctuance throughout wound and surrounding axilla, she does have indurated tissue surrounding the wound site which is unchanged Objective Data Active Medications Acetaminophen (Acetaminophen 325 Mg Tablet) 975 mg PO Q6H PRN PRN Reason: Pain, Mild 1-3,fever,headache Last Admin: 10/11/24 05:33 Dose: 975 mg Documented By: ANIL Albuterol/Ipratropium (Albuterol/Iprat 2.5/0.5mg 3 Ml Ampul.Neb) 3 ml INHALE RQ4H WHILE AWAKE [facility] Last Admin: 10/11/24 11:32 Dose: Not Given Documented By: JEAN-PAUL Non-Admin Reason: Patient Refused Albuterol/Ipratropium (Albuterol/Iprat 2.5/0.5mg 3 Ml Ampul.Neb) 3 ml INHALE RQ4H WHILE AWAKE PRN PRN Reason: Shortness of Breath Last Admin: 10/08/24 22:23 Dose: 3 ml Documented By: JOSE MANUEL Atorvastatin Calcium (Atorvastatin Calcium 80 Mg Tablet) 80 mg PO DAILY [facility] Last Admin: 10/11/24 09:28 Dose: 80 mg Documented By: GARY Benzonatate (Benzonatate 100 Mg Capsule) 100 mg PO TID PRN PRN Reason: Cough Calcium Carbonate (Calcium Carbonate 750 Mg Tab.Chew) 750 mg PO Q4H PRN PRN Reason: Heartburn Clonazepam (Clonazepam 0.5 Mg Tablet) 0.5 mg PO BID PRN PRN Reason: Anxiety Last Admin: 10/10/24 01:24 Dose: 0.5 mg Documented By: GEETHA Clonazepam (Clonazepam 1 Mg Tablet) 1 mg PO DAILY [facility] Last Admin: 10/11/24 09:27 Dose: 1 mg Documented By: GARY Diltiazem HCl (Diltiazem Hcl Cd 240 Mg Cap.Er.Deg) 240 mg PO DAILY [facility]; Protocol Last Admin: 10/11/24 09:27 Dose: 240 mg Documented By: GARY Doxycycline Monohydrate (Doxycycline Monohydrate 100 Mg Capsule) 100 mg PO Q12H [facility] Last Admin: 10/11/24 09:28 Dose: 100 mg Documented By: GARY Enoxaparin Sodium (Enoxaparin Sodium 40 Mg/0.4 Ml Syringe) 40 mg SUBCUT Q12H [facility] Last Admin: 10/11/24 05:24 Dose: 40 mg Documented By: ANIL Ferrous Sulfate (Ferrous Sulfate 324 Mg Tablet.Dr) 324 mg PO DAILY [facility] Last Admin: 10/11/24 09:27 Dose: 324 mg Documented By: GARY Fluticasone/Umeclidinium/Vilanterol (Fluticasone/Umeclidinium/Vilanterol 100/62.5/25 Blst.W.Dev) 1 puff INHALE RDAILY [facility] Last Admin: 10/11/24 07:34 Dose: 1 puff Documented By: JEAN-PAUL Furosemide (Furosemide 20 Mg Tablet) 20 mg PO BID [facility]; Protocol Last Admin: 10/11/24 09:27 Dose: 20 mg Documented By: GARY Guaifenesin (Guaifenesin La 600 Mg Tab.Er.12h) 600 mg PO BID [facility] Last Admin: 10/11/24 09:27 Dose: 600 mg Documented By: GARY Guaifenesin/Dextromethorphan (Guaifenesin Dm 200/20/10 Ml 10 Ml Syrup) 10 ml PO Q6H PRN PRN Reason: Cough Hydromorphone HCl (Hydromorphone Hcl 0.5 Mg/0.5 Ml Syringe) 0.5 mg IVPUSH Q4H PRN; Protocol PRN Reason: Pain, Severe (Pain Scale 7-10) Ampicillin Sodium/Sulbactam (Sodium 3 gm/ Sodium Chloride) 100 mls @ 200 mls/hr IV Q6H [facility] Last Infusion: 10/11/24 10:01 Dose: Infused Documented By: GARY Lactic Acid (Ammonium Lactate 12 % Lotion 226 Gm Bottle) 1 appl TOPICAL BID [facility]; Protocol Last Admin: 10/11/24 09:31 Dose: 1 appl Documented By: GARY Magnesium Hydroxide (Milk Of Magnesia 30 Ml Oral.Susp) 30 ml PO DAILY PRN PRN Reason: Constipation Melatonin (Melatonin 3 Mg Tablet) 6 mg PO BEDTIME PRN PRN Reason: Insomnia Methylprednisolone Sodium Succinate (Methylprednisolone Sod Succ 40 Mg/Ml Vial) 40 mg IVPUSH Q12H [facility] Last Admin: 10/11/24 05:24 Dose: 40 mg Documented By: ANIL Nystatin (Nystatin Powder 15 Gm Bottle) 1 appl TOPICAL BID [facility]; Protocol Last Admin: 10/11/24 09:31 Dose: Not Given Documented By: GARY Non-Admin Reason: Patient Refused Omeprazole (Omeprazole 20 Mg Capsule.) 20 mg PO DAILY@0630 [facility] Last Admin: 10/11/24 05:23 Dose: 20 mg Documented By: ANIL Ondansetron HCl (Ondansetron Hcl 4 Mg/2 Ml Vial) 4 mg IVPUSH Q8H PRN PRN Reason: Nausea and Vomiting Oseltamivir Phosphate (Oseltamivir Phosphate 75 Mg Capsule) 75 mg PO BID [facility] Stop: 10/12/24 21:01 Last Admin: 10/11/24 09:27 Dose: 75 mg Documented By: GARY Oxycodone HCl (Oxycodone Hcl Immed Release 5 Mg Tablet) 20 mg PO 5XD [facility] Last Admin: 10/11/24 09:28 Dose: 20 mg Documented By: GARY Polyethylene Glycol (Polyethylene Glycol 3350 17 Gm Powd.Pack) 17 gm PO DAILY PRN PRN Reason: Constipation Sodium Chloride (0.9 % Sodium Chloride Flush 3 Ml Syringe) 3 ml IVFLUSH QSHIFT [facility] Last Admin: 10/11/24 09:31 Dose: 3 ml Documented By: GARY Temazepam (Temazepam 15 Mg Capsule) 30 mg PO BEDTIME PRN PRN Reason: Sleep Theophylline (Theophylline Anhydrous Er 400 Mg Tab.Er.24h) 400 mg PO DAILY [facility] Last Admin: 10/11/24 09:30 Dose: 400 mg Documented By: GARY Vitamin D (Cholecalciferol (Vitamin D3) 25 Mcg Tablet) 50 mcg PO DAILY [facility] Last Admin: 10/11/24 09:26 Dose: 50 mcg Documented By: GARY Labs 10/11/24 07:21 10/10/24 06:58 Labs: Laboratory Results - last 24 hr 10/10/24 10/11/24 18:35 07:21 MCV 86.9 MCH 24.6 L MCHC 28.3 L RDW 15.7 Plt Count 220 MPV 10.5 Absolute Nucleated RBC 0.000 Nucleated RBC % (auto) 0.0 Urine Color Yellow Urine Appearance Hazy Urine pH 6.0 Ur Specific [place] 1.025 Urine Protein 30 (1+) H Urine Glucose (UA) Negative Urine Ketones Negative Urine Blood Negative Urine Nitrite Negative Ur Leukocyte Esterase Negative Urine RBC 3-5 H Urine WBC 6-10 H Ur Squamous Epith Cells 11-20 Urine Bacteria None Seen Hyaline Casts 11-20 Blood Type O Negative Antibody Screen NEGATIVE Microbiology Microbiology Results: Microbiology 10/10/24 Unknown Urine Culture - Preliminary Urine clean catch - Clean Catch Midstream Culture too young to evaluate. Procedures Date of Service Date of Service: 10/11/24 Progress Note: A&P Assessment and plan (1) Status post incision and drainage: Status: Acute Plan The right axillary cellulitis appears resolved at this point and wound clean appearing; persistent indurated tissue will likely take a few weeks to resolve. Possible fluid collection seen on US may be a seroma however at this point clinically from her exam she does not have any abscess to drain further. Continue local wound care. Packing changed to wet to dry saline soaked fluff today. Patient comfortable with plan. Time Spent With Patient Time: Total time managing care of this patient today ____ minutes. Quality Stroke Does the patient have a stroke diagnosis?: No VTE Prior VTE?: No VTE Risk Level:: Medical - moderate - high VTE Device Contraindication: Treatment Not Indicated VTE Drug Contraindication: N/A - Med Ordered
[2024-10-11] MEDS: Nystatin Powder 15 GM BOTTLE 1 APPL TOPICAL (21:57)
[2024-10-12] VITALS (14 sets, daily range): BP systolic 134–175; BP diastolic 60–90; PULSE 64–162; RESP 18–20; TEMP 36.3–36.8; O2SAT 89–100
[2024-10-12] MEDS: Ampicillin Sodium/Sulbactam Na 3 GM in 0.9 % Sodium Chloride 100 ML IV ×5 (00:17→23:46)
[2024-10-12] MEDS: methylPREDNISolone Sod Succ 40 MG/ML VIAL IVPUSH (06:16)
[2024-10-12] MEDS: Enoxaparin Sodium 40 MG/0.4 ML SYRINGE SUBCUT ×2 (06:16→17:57)
[2024-10-12] MEDS: oxyCODONE HCl Immed Release 5 MG TABLET 20 MG PO ×5 (06:17→23:56)
[2024-10-12] MEDS: Omeprazole 20 MG CAPSULE.DR PO (06:18)
[2024-10-12 06:41] LABS: Venous Blood Gas Refer to POC result
[2024-10-12 06:44] LABS: VBG Base Excess 14.6 mmol/L; VBG HCO3 45 mmol/L (22-26); VBG pCO2 97 mmHg; VBG pH 7.27 (7.32-7.43); VBG pO2 52 mmHg
--- NOTE | 2024-10-12 06:47 | PC.NURSE ---
Assumed care of patient at 23:00. Please see shift assessments, tasks, and MAR for full details. Bed alarm on and safety measures in place. Plan of care continues. Handoff report given to oncoming RN at 06:45.
[2024-10-12 06:59] LABS: Anion Gap 12 (12-20); Blood Urea Nitrogen 35 mg/dL (9-16); Calcium 8.8 mg/dL (8.4-10.2); Carbon Dioxide 39 mmol/L (22-29); Chloride 98 mmol/L (96-108); Creatinine Clr Calc Pharmacy 66.6; Estimated Glomerular Filt Rate 50; Glucose Random 262 mg/dL (60-115); Potassium 4.5 mmol/L (3.3-5.1); Sodium 144 mmol/L (135-145)
[2024-10-12] MEDS: Albuterol/Iprat 2.5/0.5MG 3 ML AMPUL.NEB INHALE ×4 (07:52→20:06)
[2024-10-12] MEDS: Fluticasone/Umeclidinium/Vilanterol 100/62.5/25 BLST.W.DEV 1 PUFF INHALE (07:52)
[2024-10-12] MEDS: dilTIAZem HCL CD 240 MG CAP.ER.DEG PO (08:02)
[2024-10-12] MEDS: Atorvastatin Calcium 80 MG TABLET PO (08:02)
[2024-10-12] MEDS: Theophylline Anhydrous ER 400 MG TAB.ER.24H PO (08:02)
[2024-10-12] MEDS: guaiFENesin LA 600 MG TAB.ER.12H PO ×2 (08:03→23:45)
[2024-10-12] MEDS: Doxycycline Monohydrate 100 MG CAPSULE PO ×2 (08:03→23:45)
[2024-10-12] MEDS: Cholecalciferol (Vitamin D3) 25 MCG TABLET 50 MCG PO (08:03)
[2024-10-12] MEDS: Furosemide 20 MG TABLET PO (08:04)
[2024-10-12] MEDS: clonazePAM 1 MG TABLET PO (08:04)
[2024-10-12] MEDS: Nystatin Powder 15 GM BOTTLE 1 APPL TOPICAL ×2 (08:04→23:56)
[2024-10-12] MEDS: Oseltamivir Phosphate 75 MG CAPSULE PO ×2 (08:04→23:45)
[2024-10-12] MEDS: Ferrous Sulfate 324 MG TABLET.DR PO (08:04)
[2024-10-12] MEDS: Ammonium Lactate 12 % Lotion 226 GM BOTTLE 1 APPL TOPICAL ×2 (08:05→23:56)
--- NOTE | 2024-10-12 11:26 | PM.CNPUL ---
History of Present Illness History of Present Illness Consult date: 10/12/24 Chief complaint: sepsis, respiratory failure, flu A, abscess R axil Narrative: 64-year-old lady with underlying COPD on 46 L of supplemental oxygen followed by Dr. Grewal, obesity hypoventilation on nocturnal BiPAP, chronic CO2 retention, diastolic dysfunction and AFib admitted on 10/08/2024 with worsening dyspnea and hypoxia and axilla abscess. Patient was empirically treated for COPD exacerbation interested and also scan access. She continues on BiPAP with suboptimal control of underlying chronic hypercapnia. This morning on evaluation patient is awake and alert and on OxyMask cannula saturating 97%. Review of Systems Constitutional: Constitutional: Denies daytime sleepiness, Denies excessive sweating, Denies fatigue, Denies fever(s), Denies lethargy, Denies malaise, Denies night sweats, Denies snoring and Denies weight loss Eyes: Eyes: Denies blurry vision and Denies itchy eyes ENT: Denies nasal congestion, Denies post nasal drip, Denies sinus pain, Denies sinus pressure and Denies other ( Thrush) Cardiovascular: Cardiovascular: Denies chest pain, Reports pedal edema, Denies dyspnea, Reports dyspnea on exertion, Reports orthopnea and Denies paroxysmal nocturnal dyspnea Respiratory: Respiratory: Denies cough, Denies hemoptysis, Denies excessive phlegm production, Denies dyspnea, Reports dyspnea on exertion, Denies snoring and Denies wheezing Gastrointestinal: Gastrointestinal: Denies abdominal pain and Denies heartburn Musculoskeletal: Musculoskeletal: Denies myalgias, Denies arthralgias and Denies joint swelling Integumentary/Breasts: Skin/Breast: Denies rash Neurologic: Denies memory loss and Denies seizure-like activity Psychiatric: Psychiatric: Denies abnormal sleep pattern, Denies anxiety and Denies memory loss Endocrine: Endocrine: Denies excessive sweating, Denies fatigue and Denies heat intolerance Hematologic/Lymphatic: Hematologic/Lymphatic: Denies easy bruising Allergic/Immunologic: Allergic/Immunologic: Denies itchy eyes, Denies seasonal rhinorrhea and Denies wheezing PMFSH Past Medical History Medical History VERN (acute kidney injury) COPD (chronic obstructive pulmonary disease) Enterococcus faecalis infection MSSA (methicillin susceptible Staphylococcus aureus) MRSA (methicillin resistant staph aureus) culture positive Encounter for management of wound VAC Chronic osteomyelitis Hypertension Iron deficiency anemia COPD (chronic obstructive pulmonary disease) Femur fracture Crohn's colitis Morbid obesity due to excess calories Closed tibia fracture Acute on chronic respiratory failure with hypoxia and hypercapnia Nonrheumatic mitral (valve) stenosis Paroxysmal atrial fibrillation Dyspnea Hypoventilation associated with obesity Pickwickian syndrome Chronic hypercapnic respiratory failure Opioid use disorder Family History Family History Other Adopted Surgical History Surgical History Hx of cholecystectomy History of open reduction and internal fixation (ORIF) procedure Status post open reduction and internal fixation (ORIF) of fracture Recent surgical procedure on lower extremity Social History Social History Household Members: Spouse and Children Household Members Other:: , Hoa. Daughter Carolyn, 21. Daughter's Boyfriend, 22. Neice, 21 Housing: House Do you presently have visiting nurse or other home services: Yes Alcohol intake: never Comment: COUNTS CORRECT Patient Tobacco Use Status: Former Tobacco user Years Smoked: 25 Smoked in Last 30 Days: No e-Cigarette/Vaping Use: Never Used Second Hand Smoke Exposure: No Use of substances other than those prescribed or required for medical reasons: No Currently Displaying Signs/Symptoms of Drug Intoxication Withdrawal: No Have you been hit, kicked, punched, or otherwise hurt by someone within the past year? If so, by whom?: No Do you feel safe in your current relationship?: Yes Is there a partner from a previous relationship who is making you feel unsafe now?: No Are you made to feel afraid or neglected: No Advance Directives: Yes Advance Directives on File: Yes Advance Directives Date on File: 12/16/20 Do you have a plan to hurt others: No Plan Recently lost weight without trying: No Nutrition Risks: No Nutritional Risk Patient : No : No Poor oral hygiene: No service: No Current occupational status: disabled Cognitive needs: No Hearing needs: No Vision needs: Yes Meds Allergies Allergy/AdvReac Type Severity Reaction Status Date / Time gabapentin Allergy Mild Anxiety Verified 10/08/24 02:41 morphine [MORPHINE] Allergy Unknown ANAPHALAXIS, Verified 10/08/24 02:41 anaphylaxis propofol [From Diprivan] Allergy Anaphylaxis Verified 10/08/24 02:41 Active Medications: Current Medications Acetaminophen (Acetaminophen 325 Mg Tablet) 975 mg PO Q6H PRN PRN Reason: Pain, Mild 1-3,fever,headache Last Admin: 10/11/24 05:33 Dose: 975 mg Albuterol/Ipratropium (Albuterol/Iprat 2.5/0.5mg 3 Ml Ampul.Neb) 3 ml INHALE RQ4H WHILE AWAKE [facility] Last Admin: 10/12/24 07:52 Dose: 3 ml Albuterol/Ipratropium (Albuterol/Iprat 2.5/0.5mg 3 Ml Ampul.Neb) 3 ml INHALE RQ4H WHILE AWAKE PRN PRN Reason: Shortness of Breath Last Admin: 10/08/24 22:23 Dose: 3 ml Atorvastatin Calcium (Atorvastatin Calcium 80 Mg Tablet) 80 mg PO DAILY [facility] Last Admin: 10/12/24 08:02 Dose: 80 mg Benzonatate (Benzonatate 100 Mg Capsule) 100 mg PO TID PRN PRN Reason: Cough Calcium Carbonate (Calcium Carbonate 750 Mg Tab.Chew) 750 mg PO Q4H PRN PRN Reason: Heartburn Clonazepam (Clonazepam 0.5 Mg Tablet) 0.5 mg PO BID PRN PRN Reason: Anxiety Last Admin: 10/10/24 01:24 Dose: 0.5 mg Clonazepam (Clonazepam 1 Mg Tablet) 1 mg PO DAILY [facility] Last Admin: 10/12/24 08:04 Dose: 1 mg Diltiazem HCl (Diltiazem Hcl Cd 240 Mg Cap.Er.Deg) 240 mg PO DAILY [facility]; Protocol Last Admin: 10/12/24 08:02 Dose: 240 mg Doxycycline Monohydrate (Doxycycline Monohydrate 100 Mg Capsule) 100 mg PO Q12H [facility] Last Admin: 10/12/24 08:03 Dose: 100 mg Enoxaparin Sodium (Enoxaparin Sodium 40 Mg/0.4 Ml Syringe) 40 mg SUBCUT Q12H [facility] Last Admin: 10/12/24 06:16 Dose: 40 mg Ferrous Sulfate (Ferrous Sulfate 324 Mg Tablet.Dr) 324 mg PO DAILY [facility] Last Admin: 10/12/24 08:04 Dose: 324 mg Fluticasone/Umeclidinium/Vilanterol (Fluticasone/Umeclidinium/Vilanterol 100/62.5/25 Blst.W.Dev) 1 puff INHALE RDAILY [facility] Last Admin: 10/12/24 07:52 Dose: 1 puff Furosemide (Furosemide 20 Mg Tablet) 20 mg PO BID [facility]; Protocol Last Admin: 10/12/24 08:04 Dose: 20 mg Guaifenesin (Guaifenesin La 600 Mg Tab.Er.12h) 600 mg PO BID [facility] Last Admin: 10/12/24 08:03 Dose: 600 mg Guaifenesin/Dextromethorphan (Guaifenesin Dm 200/20/10 Ml 10 Ml Syrup) 10 ml PO Q6H PRN PRN Reason: Cough Hydromorphone HCl (Hydromorphone Hcl 0.5 Mg/0.5 Ml Syringe) 0.5 mg IVPUSH Q4H PRN; Protocol PRN Reason: Pain, Severe (Pain Scale 7-10) Ampicillin Sodium/Sulbactam (Sodium 3 gm/ Sodium Chloride) 100 mls @ 200 mls/hr IV Q6H [facility] Last Infusion: 10/12/24 10:22 Dose: Infused Lactic Acid (Ammonium Lactate 12 % Lotion 226 Gm Bottle) 1 appl TOPICAL BID [facility]; Protocol Last Admin: 10/12/24 08:05 Dose: 1 appl Magnesium Hydroxide (Milk Of Magnesia 30 Ml Oral.Susp) 30 ml PO DAILY PRN PRN Reason: Constipation Melatonin (Melatonin 3 Mg Tablet) 6 mg PO BEDTIME PRN PRN Reason: Insomnia Methylprednisolone Sodium Succinate (Methylprednisolone Sod Succ 40 Mg/Ml Vial) 40 mg IVPUSH Q12H [facility] Last Admin: 10/12/24 06:16 Dose: 40 mg Nystatin (Nystatin Powder 15 Gm Bottle) 1 appl TOPICAL BID [facility]; Protocol Last Admin: 10/12/24 08:04 Dose: 1 appl Omeprazole (Omeprazole 20 Mg Capsule.Dr) 20 mg PO DAILY@0630 [facility] Last Admin: 10/12/24 06:18 Dose: 20 mg Ondansetron HCl (Ondansetron Hcl 4 Mg/2 Ml Vial) 4 mg IVPUSH Q8H PRN PRN Reason: Nausea and Vomiting Oseltamivir Phosphate (Oseltamivir Phosphate 75 Mg Capsule) 75 mg PO BID [facility] Stop: 10/12/24 21:01 Last Admin: 10/12/24 08:04 Dose: 75 mg Oxycodone HCl (Oxycodone Hcl Immed Release 5 Mg Tablet) 20 mg PO 5XD [facility] Last Admin: 10/12/24 10:26 Dose: 20 mg Polyethylene Glycol (Polyethylene Glycol 3350 17 Gm Powd.Pack) 17 gm PO DAILY PRN PRN Reason: Constipation Sodium Chloride (0.9 % Sodium Chloride Flush 3 Ml Syringe) 3 ml IVFLUSH QSHIFT [facility] Last Admin: 10/11/24 21:56 Dose: 3 ml Temazepam (Temazepam 15 Mg Capsule) 30 mg PO BEDTIME PRN PRN Reason: Sleep Theophylline (Theophylline Anhydrous Er 400 Mg Tab.Er.24h) 400 mg PO DAILY [facility] Last Admin: 10/12/24 08:02 Dose: 400 mg Vitamin D (Cholecalciferol (Vitamin D3) 25 Mcg Tablet) 50 mcg PO DAILY [facility] Last Admin: 10/12/24 08:03 Dose: 50 mcg Home Medications ?Medication ?Instructions ?Recorded ?Confirmed ?Last Taken ?Type fluticasone fur. 100 mcg-umeclid 1 ea inhalation DAILY 04/24/24 10/08/24 10/07/24 History 62.5 mcg-vilant 25 mcg inhalat.powder (Trelegy Ellipta) cholecalciferol (vitamin D3) 50 50 mcg PO DAILY 05/21/24 10/08/24 10/07/24 History mcg (2,000 unit) tablet clonazepam 0.5 mg tablet 0.5 mg PO BID PRN Anxiety 05/21/24 10/08/24 10/07/24 History temazepam 30 mg capsule 30 mg PO BEDTIME PRN Sleep 05/21/24 10/08/24 10/07/24 History acetaminophen 500 mg tablet 1,000 mg PO TID PRN Pain 09/28/24 10/08/24 10/07/24 History clonazepam 1 mg tablet 1 mg PO DAILY 09/28/24 10/08/24 10/07/24 History omeprazole 20 mg tablet,delayed 20 mg PO DAILY@0630 09/28/24 10/08/24 10/07/24 History release oxycodone 5 mg tablet 20 mg PO 5XD 09/28/24 10/08/24 10/07/24 History atorvastatin 80 mg tablet 80 mg PO DAILY 10/08/24 10/08/24 10/07/24 History Physical Exam Vital Signs: Vital Signs: Last Vital Signs Temp 97.3 F 10/12/24 11:19 Pulse 67 10/12/24 11:19 Resp 18 10/12/24 11:19 BP 134/60 10/12/24 11:19 Pulse Ox 97 10/12/24 11:19 O2 Del Method Oxymask 10/12/24 11:19 O2 Flow Rate 6 10/12/24 11:19 Oxygen Flow Rate 9 10/08/24 02:39 BMI result Body Mass Index 54.9 Const: General: no acute distress and alert Nutritional Appearance: obese Orientation/consciousness: Other orientation findings ( oriented) HEENT: Head: Yes atraumatic Eyes: General: appearance normal, both eyes and all related structures Sclerae: sclerae normal EOM: EOMs intact bilaterally Neck: Neck: Yes supple Lymphatic: no lymphadenopathy noted Resp: Effort & Inspection: normal respiratory effort and no use of accessory muscles Auscultation: crackles (Mild bilateral) Cardio: Rate: regular rate Rhythm: regular rhythm Heart sounds: no gallops, no murmurs and no rubs Skin: General skin exam: other ( warm) Extrem: General: No clubbing, No cyanosis and Yes edema (2+ bilateral) Results Laboratory Findings 10/11/24 07:21 10/12/24 06:32 ABG, PT/INR, D-dimer: PT/INR, D-dimer PT 11.8 SEC (10.9-12.4) 10/08/24 02:32 INR 1.0 (0.9-1.1) 10/08/24 02:32 Abnormal lab findings: Abnormal Labs 10/08/24 10/08/24 10/08/24 02:31 02:32 02:41 WBC 14.3 H RBC 3.77 L Hgb 9.2 L Hct 31.3 L MCH 24.4 L MCHC 29.4 L Immature Gran % (Auto) 0.6 H Neut % (Auto) 90.5 H Lymph % (Auto) 2.7 L [place] % (Auto) Lymph # (Auto) 0.4 L Abs Immat Gran (auto) 0.08 H Absolute Neuts (auto) 12.9 H Retic Hgb Equivalent VBG pH VBG HCO3 44 H Carbon Dioxide 35 H Anion Gap BUN 20 H Random Glucose 141 H Iron % Saturation Lactate Dehydrogenase Urine Protein Urine RBC Urine WBC Influenza Type A (PCR) POSITIVE A 10/08/24 10/09/24 10/10/24 06:27 06:49 06:58 WBC 12.1 H 13.6 H RBC 3.52 L 3.24 L 3.38 L Hgb 8.6 L 7.8 L 8.3 L Hct 29.5 L 27.6 L 28.8 L MCH 24.4 L 24.1 L 24.6 L MCHC 29.2 L 28.3 L 28.8 L Immature Gran % (Auto) 0.7 H 1.7 H 1.3 H Neut % (Auto) 96.1 H 92.1 H 91.4 H Lymph % (Auto) 1.5 L 3.3 L 3.2 L [place] % (Auto) 1.3 L Lymph # (Auto) 0.2 L 0.3 L 0.4 L Abs Immat Gran (auto) 0.09 H 0.14 H 0.18 H Absolute Neuts (auto) 11.7 H 12.5 H Retic Hgb Equivalent 21.9 L VBG pH VBG HCO3 Carbon Dioxide 33 H 33 H 36 H Anion Gap 10 L BUN 19 H 23 H 26 H Random Glucose 182 H 198 H 187 H Iron 24 L % Saturation 10 L Lactate Dehydrogenase 268 H Urine Protein Urine RBC Urine WBC Influenza Type A (PCR) 10/10/24 10/10/24 10/11/24 08:05 18:35 07:21 WBC 13.9 H RBC 3.58 L Hgb 8.8 L Hct 31.1 L MCH 24.6 L MCHC 28.3 L Immature Gran % (Auto) Neut % (Auto) Lymph % (Auto) [place] % (Auto) Lymph # (Auto) Abs Immat Gran (auto) Absolute Neuts (auto) Retic Hgb Equivalent VBG pH VBG HCO3 42 H Carbon Dioxide Anion Gap BUN Random Glucose Iron % Saturation Lactate Dehydrogenase Urine Protein 30 (1+) H Urine RBC 3-5 H Urine WBC 6-10 H Influenza Type A (PCR) 10/12/24 10/12/24 06:32 06:40 WBC RBC Hgb Hct MCH MCHC Immature Gran % (Auto) Neut % (Auto) Lymph % (Auto) [place] % (Auto) Lymph # (Auto) Abs Immat Gran (auto) Absolute Neuts (auto) Retic Hgb Equivalent VBG pH 7.27 L VBG HCO3 45 H Carbon Dioxide 39 H Anion Gap BUN 35 H Random Glucose 262 H Iron % Saturation Lactate Dehydrogenase Urine Protein Urine RBC Urine WBC Influenza Type A (PCR) Microbiology: Microbiology 10/10/24 Unknown Urine clean catch - Clean Catch Midstream Urine Culture - Final 10/08/24 02:42 Blood - Venous Blood Culture - Final Coag negative Staphylococcus 10/08/24 02:31 Blood - Venous Blood Culture - Preliminary No growth after 48 hours. Assessment and Plan (1) Hyperoxia: Status: Acute (2) Acute on chronic heart failure with preserved ejection fraction (HFpEF): Status: Acute (3) Acute on chronic respiratory failure with hypoxia and hypercapnia: Status: Acute (4) Pickwickian syndrome: Status: Acute Plan Impression: 64-year-old lady with acute on chronic hypoxic and hypercapnic respiratory failure on a background of obesity hypoventilation, COPD, and acute diastolic congestive heart failure. Recommendation: Consider documentation of diuresis with acetazolamide 500 b.i.d. 1st dose now. Consider utilization of in-house BiPAP machine night and as needed for nebs. Maintain O2 saturation at 89-93% secondary to propensity for chronic CO2 retention. Procedures Date of Service Date of Service: 10/12/24
--- NOTE | 2024-10-12 12:39 | P.PNIM_ITS ---
Subjective Subjective Date of Service: 10/12/24 Interval History: breathing improved though pCO2 + pH worse axillary redness improved Review of Systems Review of Systems: Yes all other systems are reviewed and are negative Physical Exam 2 Vital Signs: Vital Signs: Last Vital Signs Temp 97.3 F 10/12/24 11:19 Pulse 67 10/12/24 11:43 Resp 18 10/12/24 11:43 BP 134/60 10/12/24 11:19 Pulse Ox 97 10/12/24 11:19 O2 Del Method Oxymask 10/12/24 11:19 O2 Flow Rate 6 10/12/24 11:19 Oxygen Flow Rate 9 10/08/24 02:39 BMI result Body Mass Index 54.9 Gen: NAD HEENT: sclera anicteric, moist mucus membranes Neck: supple Lungs: diminished Heart: regular rate and rhythm, no murmurs Abd: soft, non-tender, non-distended, obese Ext: no edema Skin: warm/well-perfused, R axila with drained abscess and minimal surrounding erythema + induration Neuro: alert and oriented x3, no focal findings Psych: appropriate affect Objective Data Active Medications Acetaminophen (Acetaminophen 325 Mg Tablet) 975 mg PO Q6H PRN PRN Reason: Pain, Mild 1-3,fever,headache Last Admin: 10/11/24 05:33 Dose: 975 mg Acetazolamide (Acetazolamide Sodium 500 Mg Vial) 500 mg IVPUSH BID [facility] Albuterol/Ipratropium (Albuterol/Iprat 2.5/0.5mg 3 Ml Ampul.Neb) 3 ml INHALE RQ4H WHILE AWAKE [facility] Last Admin: 10/12/24 11:42 Dose: 3 ml Documented By: GARETT Albuterol/Ipratropium (Albuterol/Iprat 2.5/0.5mg 3 Ml Ampul.Neb) 3 ml INHALE RQ4H WHILE AWAKE PRN PRN Reason: Shortness of Breath Last Admin: 10/08/24 22:23 Dose: 3 ml Documented By: JOSE MANUEL Atorvastatin Calcium (Atorvastatin Calcium 80 Mg Tablet) 80 mg PO DAILY [facility] Last Admin: 10/12/24 08:02 Dose: 80 mg Documented By: BETHANIE Benzonatate (Benzonatate 100 Mg Capsule) 100 mg PO TID PRN PRN Reason: Cough Calcium Carbonate (Calcium Carbonate 750 Mg Tab.Chew) 750 mg PO Q4H PRN PRN Reason: Heartburn Clonazepam (Clonazepam 0.5 Mg Tablet) 0.5 mg PO BID PRN PRN Reason: Anxiety Last Admin: 10/10/24 01:24 Dose: 0.5 mg Documented By: GEETHA Clonazepam (Clonazepam 1 Mg Tablet) 1 mg PO DAILY [facility] Last Admin: 10/12/24 08:04 Dose: 1 mg Documented By: BETHANIE Diltiazem HCl (Diltiazem Hcl Cd 240 Mg Cap.Er.Deg) 240 mg PO DAILY [facility]; Protocol Last Admin: 10/12/24 08:02 Dose: 240 mg Documented By: BETHANIE Doxycycline Monohydrate (Doxycycline Monohydrate 100 Mg Capsule) 100 mg PO Q12H [facility] Last Admin: 10/12/24 08:03 Dose: 100 mg Documented By: BETHANIE Enoxaparin Sodium (Enoxaparin Sodium 40 Mg/0.4 Ml Syringe) 40 mg SUBCUT Q12H [facility] Last Admin: 10/12/24 06:16 Dose: 40 mg Documented By: FILIBERTO Ferrous Sulfate (Ferrous Sulfate 324 Mg Tablet.Dr) 324 mg PO DAILY [facility] Last Admin: 10/12/24 08:04 Dose: 324 mg Documented By: BETHANIE Fluticasone/Umeclidinium/Vilanterol (Fluticasone/Umeclidinium/Vilanterol 100/62.5/25 Blst.W.Dev) 1 puff INHALE RDAILY [facility] Last Admin: 10/12/24 07:52 Dose: 1 puff Documented By: GARETT Furosemide (Furosemide 20 Mg Tablet) 20 mg PO BID [facility]; Protocol Last Admin: 10/12/24 08:04 Dose: 20 mg Documented By: BETHANIE Guaifenesin (Guaifenesin La 600 Mg Tab.Er.12h) 600 mg PO BID [facility] Last Admin: 10/12/24 08:03 Dose: 600 mg Documented By: BETHANIE Guaifenesin/Dextromethorphan (Guaifenesin Dm 200/20/10 Ml 10 Ml Syrup) 10 ml PO Q6H PRN PRN Reason: Cough Hydromorphone HCl (Hydromorphone Hcl 0.5 Mg/0.5 Ml Syringe) 0.5 mg IVPUSH Q4H PRN; Protocol PRN Reason: Pain, Severe (Pain Scale 7-10) Ampicillin Sodium/Sulbactam (Sodium 3 gm/ Sodium Chloride) 100 mls @ 200 mls/hr IV Q6H [facility] Last Infusion: 10/12/24 10:22 Dose: Infused Documented By: BETHANIE Lactic Acid (Ammonium Lactate 12 % Lotion 226 Gm Bottle) 1 appl TOPICAL BID [facility]; Protocol Last Admin: 10/12/24 08:05 Dose: 1 appl Documented By: BETHANIE Magnesium Hydroxide (Milk Of Magnesia 30 Ml Oral.Susp) 30 ml PO DAILY PRN PRN Reason: Constipation Melatonin (Melatonin 3 Mg Tablet) 6 mg PO BEDTIME PRN PRN Reason: Insomnia Methylprednisolone Sodium Succinate (Methylprednisolone Sod Succ 40 Mg/Ml Vial) 40 mg IVPUSH Q12H [facility] Last Admin: 10/12/24 06:16 Dose: 40 mg Documented By: FILIBERTO Nystatin (Nystatin Powder 15 Gm Bottle) 1 appl TOPICAL BID [facility]; Protocol Last Admin: 10/12/24 08:04 Dose: 1 appl Documented By: BETHANIE Omeprazole (Omeprazole 20 Mg Capsule.) 20 mg PO DAILY@0630 [facility] Last Admin: 10/12/24 06:18 Dose: 20 mg Documented By: FILIBERTO Ondansetron HCl (Ondansetron Hcl 4 Mg/2 Ml Vial) 4 mg IVPUSH Q8H PRN PRN Reason: Nausea and Vomiting Oseltamivir Phosphate (Oseltamivir Phosphate 75 Mg Capsule) 75 mg PO BID [facility] Stop: 10/12/24 21:01 Last Admin: 10/12/24 08:04 Dose: 75 mg Documented By: BETHANIE Oxycodone HCl (Oxycodone Hcl Immed Release 5 Mg Tablet) 20 mg PO 5XD [facility] Last Admin: 10/12/24 10:26 Dose: 20 mg Documented By: BETHANIE Polyethylene Glycol (Polyethylene Glycol 3350 17 Gm Powd.Pack) 17 gm PO DAILY PRN PRN Reason: Constipation Sodium Chloride (0.9 % Sodium Chloride Flush 3 Ml Syringe) 3 ml IVFLUSH QSHIFT [facility] Last Admin: 10/11/24 21:56 Dose: 3 ml Documented By: PRIMO Temazepam (Temazepam 15 Mg Capsule) 30 mg PO BEDTIME PRN PRN Reason: Sleep Theophylline (Theophylline Anhydrous Er 400 Mg Tab.Er.24h) 400 mg PO DAILY [facility] Last Admin: 10/12/24 08:02 Dose: 400 mg Documented By: BETHANIE Vitamin D (Cholecalciferol (Vitamin D3) 25 Mcg Tablet) 50 mcg PO DAILY [facility] Last Admin: 10/12/24 08:03 Dose: 50 mcg Documented By: BETHANIE Labs 10/11/24 07:21 10/12/24 06:32 Labs: Laboratory Results - last 24 hr 10/12/24 10/12/24 06:32 06:40 VBG pH 7.27 L VBG pCO2 97 VBG pO2 52 VBG HCO3 45 H VBG O2 Saturation 79.0 VBG Base Excess 14.6 Anion Gap 12 Estim Creat Clear Calc 66.6 Estimated GFR 50 Random Glucose 262 H Calcium 8.8 Microbiology Microbiology Results: Microbiology 10/10/24 Unknown Urine Culture - Final Urine clean catch - Clean Catch Midstream 10/08/24 02:42 Blood Culture - Final Blood - Venous Coag negative Staphylococcus Assessment and Plan (1) Acute exacerbation of chronic obstructive pulmonary disease: Status: Acute Plan d5 for 64yo F with HFpEF, COPD, obesity, chronic osteomyelitis, chronic hypercarbic/hypoxic resp failure on home O2 + nighttime BiPAP recently admitted for R axillary abscess for which she underwent I+D and grew MSSA presenting with cough and dyspnea, admitted for sepsis due to cellulitis/abscess, acute/chronic respiratory failure with COPD exacerbation due to flu A acute/chronic respiratory failure with hypoxia/hypercapnea with acute COPD exacerbation to influenza A - continue BiPAP at sleep and with naps, continue oseltamivir 10/08-10/12, change methylprednisolone to prednisone, standing/prn nebs, continue doxycycline 10/08-, Trelegy, theophylline - Pulm consulted; give IV diuresis; also acetazolamide; recheck BMP/BNP/VBG in AM - change from home BiPAP to hospital BiPAP; will take home BiPAP to manager animal's office to get it checked sepsis due to cellulitis/abscess R axilla - continue ampicillin-sulbactam 10/08-, Surgery + Wound Care consulted: Cleanse and irrigate with NS, Pat dry.? Apply antifungal powder dust off excess followed by skin prep to seal in place, lightly pack with Durafiber AG, be sure to leave a wick to easy removal.? Cover with dry dressing.? Change daily while inpatient . Per Surgery US finding corresponds to residual induration, scar tissue, and serous fluid; no residual abscess on digital exploration - BCx growing coag-neg Staph, a contaminant acute/chronic HFpEF - will change PO back to IV furosemide pAF - continue diltiazem; not on anticoagulation normocytic anemia - probably iron deficiency + chronic inflammation; replete Fe mood disorder - clonazepam VTE ppx - enoxaparin dispo - PT consult In my clinical judgment, the patient requires continued inpatient hospitalization for the following reasons: hypoxia/hypercarbia, IV ABX Total time managing care of this patient today: 45 minutes. Quality Stroke Does the patient have a stroke diagnosis?: No VTE Prior VTE?: No VTE Risk Level:: Medical - moderate - high VTE Device Contraindication: Treatment Not Indicated VTE Drug Contraindication: N/A - Med Ordered
[2024-10-12] MEDS: acetaZOLAMIDE sodium 500 MG VIAL IVPUSH (13:00)
[2024-10-12] MEDS: 0.9 % Sodium Chloride Flush 3 ML SYRINGE IVFLUSH ×2 (13:07→17:59)
[2024-10-12] MEDS: predniSONE 20 MG TABLET 40 MG PO (13:16)
[2024-10-12] MEDS: ondansetron HCL 4 MG/2 ML VIAL IVPUSH (15:44)
[2024-10-12] MEDS: Furosemide 20 MG/2 ML VIAL IVPUSH (17:58)
[2024-10-13] VITALS (11 sets, daily range): BP systolic 154–179; BP diastolic 54–79; PULSE 60–79; RESP 14–20; TEMP 36.1–36.9; O2SAT 90–99
[2024-10-13] MEDS: 0.9 % Sodium Chloride Flush 3 ML SYRINGE IVFLUSH ×3 (03:50→16:43)
[2024-10-13] MEDS: Ampicillin Sodium/Sulbactam Na 3 GM in 0.9 % Sodium Chloride 100 ML IV ×3 (05:31→17:48)
[2024-10-13] MEDS: Enoxaparin Sodium 40 MG/0.4 ML SYRINGE SUBCUT ×2 (05:31→16:43)
[2024-10-13] MEDS: oxyCODONE HCl Immed Release 5 MG TABLET 20 MG PO ×5 (06:09→21:50)
[2024-10-13] MEDS: Omeprazole 20 MG CAPSULE.DR PO (06:09)
[2024-10-13 06:50] LABS: Venous Blood Gas Refer to POC result
[2024-10-13 06:58] LABS: VBG Base Excess 17.3 mmol/L; VBG HCO3 47 mmol/L (22-26); VBG pCO2 94 mmHg; VBG pO2 61 mmHg
[2024-10-13 07:08] LABS: Blood Urea Nitrogen 36 mg/dL (9-16); Calcium 8.5 mg/dL (8.4-10.2); Creatinine Clr Calc Pharmacy 74.6; Estimated Glomerular Filt Rate 57; Glucose Random 186 mg/dL (60-115); Magnesium 2.2 mg/dL (1.6-2.6)
[2024-10-13 07:13] LABS: B Type Natriuretic Peptide 341 pg/mL (<100)
[2024-10-13 07:15] LABS: Anion Gap 12 (12-20); Carbon Dioxide 39 mmol/L (22-29); Chloride 97 mmol/L (96-108); Potassium 4.4 mmol/L (3.3-5.1); Sodium 144 mmol/L (135-145)
[2024-10-13] MEDS: Theophylline Anhydrous ER 400 MG TAB.ER.24H PO (08:07)
[2024-10-13] MEDS: Cholecalciferol (Vitamin D3) 25 MCG TABLET 50 MCG PO (08:08)
[2024-10-13] MEDS: dilTIAZem HCL CD 240 MG CAP.ER.DEG PO (08:08)
[2024-10-13] MEDS: predniSONE 20 MG TABLET 40 MG PO (08:08)
[2024-10-13] MEDS: Atorvastatin Calcium 80 MG TABLET PO (08:08)
[2024-10-13] MEDS: Doxycycline Monohydrate 100 MG CAPSULE PO ×2 (08:08→21:49)
[2024-10-13] MEDS: Furosemide 20 MG/2 ML VIAL IVPUSH ×2 (08:09→17:48)
[2024-10-13] MEDS: clonazePAM 1 MG TABLET PO (08:09)
[2024-10-13] MEDS: Ferrous Sulfate 324 MG TABLET.DR PO (08:09)
[2024-10-13] MEDS: guaiFENesin LA 600 MG TAB.ER.12H PO ×2 (08:09→21:49)
[2024-10-13] MEDS: Ammonium Lactate 12 % Lotion 226 GM BOTTLE 1 APPL TOPICAL (08:10)
[2024-10-13] MEDS: Nystatin Powder 15 GM BOTTLE 1 APPL TOPICAL ×2 (08:10→21:57)
[2024-10-13] MEDS: Fluticasone/Umeclidinium/Vilanterol 100/62.5/25 BLST.W.DEV 1 PUFF INHALE (08:18)
[2024-10-13] MEDS: Albuterol/Iprat 2.5/0.5MG 3 ML AMPUL.NEB INHALE ×3 (08:20→20:26)
--- NOTE | 2024-10-13 09:50 | PC.NURSE ---
Addendum entered by Lara Hancock RN 10/13/24 11:45: Physician, Dr. Aquino, in to see patient to discuss. Patient's questions answered. She is agreeable to receiving Diamox. Original Note: Scheduled Diamox refused by patient this morning. MD notified.
--- NOTE | 2024-10-13 11:10 | MHC.CM.PN ---
Per ROUNDS discussion, Patient is not yet medically cleared for dc (IV ABT & IV Lasix); PT is recommending home with services and CM will continue to follow.
[2024-10-13] MEDS: acetaZOLAMIDE 250 MG TABLET 500 MG PO ×2 (11:44→21:51)
--- NOTE | 2024-10-13 16:14 | HO.WOUND ---
Wound Consult: Follow up Right Axilla dressing recently changed - patient requested to not have dressing changed at this time. She reports surgery has seen recently and no need to assess at this time. Will attempt to assess in person Wednesday if patient remains inpatient. No new topical recommendations needed at this time. Details from previous assessment: 64yr old?female admitted to [facility] on 10/08/24 - See progress notes and H&P for detailed history.? Wound consult placed for Right Axilla and coccyx area.? Patient agreeable to assessment and photo documentation. Chart review reveals she had I&D of Right Axilla in ED along with OR debridement last admission. She currently is admissted with Flu A. In the periwound is a large approximate 5cm movable mass - patient reports she has had that for day or two prior to ED arrival. The skin is intact, pigmentation within normal limits no redness no warmth and no fluctuance noted. A firm induration / mass noted no topical intervention needed for mass at this time will defer back to provider for assessment. The I&D site can be packed with small piece of durafiber and dry gauze dressing. Buttock Etiology: ??MASD Present on Admission Measurements: 4cm x 0.1cm x 0.1cm Wound Bed: macerated tissue with in crease and pink linear tissue noted- remains blanchable Drainage / Odor: None Edges: ? linear Jossie wound: ?Yardley blanchble tissue No Induration, Fluctuance or Warmth noted Pain: denies Goals of Treatment: ? barrier cream to protect from moisture and friction Right Axilla Etiology: ?Abscess debridement Present on Admission Measurements: 0.2cm x 4cm x 5cm Wound Bed: difficult to assess Drainage / Odor: serosang purulent drainage - no odor Edges: ? well defined Jossie wound: Fungal Dermatitis and MASD - palpable mass noted - small than assessment last admission prior to OR debridement - ? No Induration, Fluctuance or Warmth noted Pain: tenderness noted Goals of Treatment: ? Durafiber packing for moisture management - will TT provider at pt request with s/s of mass continued . Dr Dash per pt request. Recommendations: 1. Turn and Reposition every 2 hours and as needed for patient comfort.? Use pillows or wedges to support off loading positions. 2. Off Load all bony prominences with use of pillows and heel boots if needed.? Apply Preventative foams where needed. ? 3. Monitor for incontinence and moisture control, use barrier creams when needed for prevention and treatment. 4. Provide adequate and supplemental nutrition.? 5. Continue low air loss mattress. 6. When applicable maintain blood glucose levels per Providers order. 7. Perineal Area and buttock - Off Load Pressure with Q2 hr turns and use of pillows - Cleanse with PH balance spray or wipes, pat dry. ?Apply thin layer of barrier cream to affected area.? Apply twice daily and Reapply thin layer PRN after each episode of incontinence. 8. Bridge of nose - Apply skin prep be sure to avoid eyes. Allow to dry. Cover bridge of nose with Mepilex Lite when BiPAP is in use. 9. Right Axilla - Cleanse and irrigate with NS, Pat dry.? Apply antifungal powder dust off excess followed by skin prep to seal in place, lightly pack with Durafiber AG, be sure to leave a wick to easy removal.? Cover with dry dressing.? Change daily while inpatient.. Re-consult wound care Nurse for wound deterioration or wound changes.
--- NOTE | 2024-10-13 16:17 | HO.PM.IMPN ---
Subjective Subjective Date of Service: 10/13/24 Interval History: Continues with shortness of breath; minimal improvement since admission Review of Systems Denies chest pain Admits shortness breath with minimal movement Denies nausea vomiting diarrhea Denies fever chills Physical Exam Vital Signs: Vital Signs: Last Vital Signs Temp 97.2 F 10/13/24 12:00 Pulse 60 10/13/24 15:28 Resp 16 10/13/24 15:28 BP 154/71 H 10/13/24 14:16 Pulse Ox 90 L 10/13/24 14:16 O2 Del Method BiPAP 10/13/24 12:00 O2 Flow Rate 8 10/13/24 08:00 Oxygen Flow Rate 9 10/08/24 02:39 BMI result Body Mass Index 54.9 Const: Other: Awake alert no acute distress Resp: Other: Diminished throughout with scattered expiratory wheezes and end inspiratory crackles throughout Cardio: Other: No S4; positive S1-S2; no S3 murmurs rubs or gallops GI: Other: Soft nontender nondistended normoactive bowel sounds Extrem: Other: No edema bilaterally Objective Data Active Medications Acetaminophen (Acetaminophen 325 Mg Tablet) 975 mg PO Q6H PRN PRN Reason: Pain, Mild 1-3,fever,headache Last Admin: 10/11/24 05:33 Dose: 975 mg Acetazolamide (Acetazolamide 250 Mg Tablet) 500 mg PO BID [facility] Last Admin: 10/13/24 11:44 Dose: 500 mg Documented By: BETHANIE Acetazolamide (Acetazolamide 250 Mg Tablet) 250 mg PO BID [facility] Albuterol/Ipratropium (Albuterol/Iprat 2.5/0.5mg 3 Ml Ampul.Neb) 3 ml INHALE RQ4H WHILE AWAKE [facility] Last Admin: 10/13/24 15:25 Dose: 3 ml Documented By: RANDEE Albuterol/Ipratropium (Albuterol/Iprat 2.5/0.5mg 3 Ml Ampul.Neb) 3 ml INHALE RQ4H WHILE AWAKE PRN PRN Reason: Shortness of Breath Last Admin: 10/08/24 22:23 Dose: 3 ml Documented By: JOSE MANUEL Atorvastatin Calcium (Atorvastatin Calcium 80 Mg Tablet) 80 mg PO DAILY [facility] Last Admin: 10/13/24 08:08 Dose: 80 mg Documented By: BETHANIE Benzonatate (Benzonatate 100 Mg Capsule) 100 mg PO TID PRN PRN Reason: Cough Calcium Carbonate (Calcium Carbonate 750 Mg Tab.Chew) 750 mg PO Q4H PRN PRN Reason: Heartburn Clonazepam (Clonazepam 1 Mg Tablet) 1 mg PO DAILY [facility] Last Admin: 10/13/24 08:09 Dose: 1 mg Documented By: BETHANIE Diltiazem HCl (Diltiazem Hcl Cd 240 Mg Cap.Er.Deg) 240 mg PO DAILY [facility]; Protocol Last Admin: 10/13/24 08:08 Dose: 240 mg Documented By: BETHANIE Doxycycline Monohydrate (Doxycycline Monohydrate 100 Mg Capsule) 100 mg PO Q12H [facility] Last Admin: 10/13/24 08:08 Dose: 100 mg Documented By: BETHANIE Enoxaparin Sodium (Enoxaparin Sodium 40 Mg/0.4 Ml Syringe) 40 mg SUBCUT Q12H [facility] Last Admin: 10/13/24 05:31 Dose: 40 mg Documented By: VALENTE Ferrous Sulfate (Ferrous Sulfate 324 Mg Tablet.Dr) 324 mg PO DAILY [facility] Last Admin: 10/13/24 08:09 Dose: 324 mg Documented By: BETHANIE Fluticasone/Umeclidinium/Vilanterol (Fluticasone/Umeclidinium/Vilanterol 100/62.5/25 Blst.W.Dev) 1 puff INHALE RDAILY [facility] Last Admin: 10/13/24 08:18 Dose: 1 puff Documented By: RANDEE Furosemide (Furosemide 20 Mg/2 Ml Vial) 20 mg IVPUSH BID@0900,1800 [facility]; Protocol Last Admin: 10/13/24 08:09 Dose: 20 mg Documented By: BETHANIE Guaifenesin (Guaifenesin La 600 Mg Tab.Er.12h) 600 mg PO BID [facility] Last Admin: 10/13/24 08:09 Dose: 600 mg Documented By: BETHANIE Guaifenesin/Dextromethorphan (Guaifenesin Dm 200/20/10 Ml 10 Ml Syrup) 10 ml PO Q6H PRN PRN Reason: Cough Hydromorphone HCl (Hydromorphone Hcl 0.5 Mg/0.5 Ml Syringe) 0.5 mg IVPUSH Q4H PRN; Protocol PRN Reason: Pain, Severe (Pain Scale 7-10) Ampicillin Sodium/Sulbactam (Sodium 3 gm/ Sodium Chloride) 100 mls @ 200 mls/hr IV Q6H [facility] Last Infusion: 10/13/24 11:45 Dose: Infused Documented By: BETHANIE Lactic Acid (Ammonium Lactate 12 % Lotion 226 Gm Bottle) 1 appl TOPICAL BID [facility]; Protocol Last Admin: 10/13/24 08:10 Dose: 1 appl Documented By: BETHANIE Magnesium Hydroxide (Milk Of Magnesia 30 Ml Oral.Susp) 30 ml PO DAILY PRN PRN Reason: Constipation Melatonin (Melatonin 3 Mg Tablet) 6 mg PO BEDTIME PRN PRN Reason: Insomnia Methylprednisolone Sodium Succinate (Methylprednisolone Sod Succ 125 Mg/2 Ml Vial) 60 mg IVPUSH Q8H [facility] Nystatin (Nystatin Powder 15 Gm Bottle) 1 appl TOPICAL BID [facility]; Protocol Last Admin: 10/13/24 08:10 Dose: 1 appl Documented By: BETHANIE Omeprazole (Omeprazole 20 Mg Capsule.) 20 mg PO DAILY@0630 [facility] Last Admin: 10/13/24 06:09 Dose: 20 mg Documented By: VALENTE Ondansetron HCl (Ondansetron Hcl 4 Mg/2 Ml Vial) 4 mg IVPUSH Q8H PRN PRN Reason: Nausea and Vomiting Last Admin: 10/12/24 15:44 Dose: 4 mg Documented By: BETHANIE Oxycodone HCl (Oxycodone Hcl Immed Release 5 Mg Tablet) 20 mg PO 5XD [facility] Last Admin: 10/13/24 15:22 Dose: 20 mg Documented By: BETHANIE Polyethylene Glycol (Polyethylene Glycol 3350 17 Gm Powd.Pack) 17 gm PO DAILY PRN PRN Reason: Constipation Sodium Chloride (0.9 % Sodium Chloride Flush 3 Ml Syringe) 3 ml IVFLUSH QSHIFT [facility] Last Admin: 10/13/24 08:09 Dose: 3 ml Documented By: BETHANIE Theophylline (Theophylline Anhydrous Er 400 Mg Tab.Er.24h) 400 mg PO DAILY [facility] Last Admin: 10/13/24 08:07 Dose: 400 mg Documented By: BETHANIE Vitamin D (Cholecalciferol (Vitamin D3) 25 Mcg Tablet) 50 mcg PO DAILY [facility] Last Admin: 10/13/24 08:08 Dose: 50 mcg Documented By: BETHANIE Labs 10/11/24 07:21 10/13/24 06:36 Labs: Laboratory Results - last 24 hr 10/13/24 10/13/24 06:36 06:54 VBG pH 7.30 L VBG pCO2 94 VBG pO2 61 VBG HCO3 47 H VBG O2 Saturation 90.0 VBG Base Excess 17.3 Anion Gap 12 Estim Creat Clear Calc 74.6 Estimated GFR 57 Random Glucose 186 H Calcium 8.5 Magnesium 2.2 B-Natriuretic Peptide 341 H Microbiology Microbiology Results: Microbiology 10/08/24 02:31 Blood Culture - Final Blood - Venous No growth after 5 days. Assessment and Plan (1) Influenza A: Status: Acute (2) Acute exacerbation of chronic obstructive pulmonary disease: Status: Acute Plan 64yo F with HFpEF, COPD, obesity, chronic osteomyelitis, chronic hypercarbic/hypoxic resp failure on home O2 + nighttime BiPAP recently admitted for R axillary abscess for which she underwent I+D and grew MSSA presenting with cough and dyspnea, admitted for sepsis due to cellulitis/abscess, acute/chronic respiratory failure with COPD exacerbation due to flu A 1.Acute/chronic respiratory failure with hypoxia/hypercapnea with acute COPD exacerbation to influenza A - continue BiPAP at sleep and with naps, continue oseltamivir 10/08-10/12;methylpred 60mg q6h -prn nebs, continue doxycycline; add Diamox 2.Sepsis due to cellulitis/abscess R axilla - continue ampicillin-sulbactam 10/08 - Cleanse and irrigate with NS, Pat dry.? Apply antifungal powder dust off excess followed by skin prep to seal in place, lightly pack with Durafiber AG, be sure to leave a wick to easy removal.? Cover with dry dressing daily 3.Acute/chronic HFpEF - will change PO back to IV furosemide 4.pAF -acceptable rate control - continue diltiazem; not on anticoagulation Enoxaparin Full code In my clinical judgment, the patient requires continued inpatient hospitalization for the following reasons: hypoxia/hypercarbia, IV ABX Quality Stroke Does the patient have a stroke diagnosis?: No VTE Prior VTE?: No VTE Risk Level:: Medical - moderate - high VTE Device Contraindication: Treatment Not Indicated VTE Drug Contraindication: N/A - Med Ordered
[2024-10-13] MEDS: methylPREDNISolone Sod Succ 125 MG/2 ML VIAL 60 MG IVPUSH (16:42)
[2024-10-14] VITALS (7 sets, daily range): BP systolic 144–181; BP diastolic 62–82; PULSE 60–88; RESP 16–18; TEMP 36.2–37.1; O2SAT 94–98
[2024-10-14] MEDS: Ampicillin Sodium/Sulbactam Na 3 GM in 0.9 % Sodium Chloride 100 ML IV ×4 (00:09→18:03)
[2024-10-14] MEDS: methylPREDNISolone Sod Succ 125 MG/2 ML VIAL 60 MG IVPUSH ×3 (00:09→18:02)
[2024-10-14] MEDS: 0.9 % Sodium Chloride Flush 3 ML SYRINGE IVFLUSH ×3 (00:10→18:03)
[2024-10-14] MEDS: Enoxaparin Sodium 40 MG/0.4 ML SYRINGE SUBCUT ×2 (05:19→18:02)
[2024-10-14] MEDS: Omeprazole 20 MG CAPSULE.DR PO (05:48)
[2024-10-14] MEDS: oxyCODONE HCl Immed Release 5 MG TABLET 20 MG PO ×4 (05:52→21:40)
[2024-10-14 07:09] LABS: Basophils Percent Auto 0.1 % (0-2); Hematocrit 30.2 % (37.0-47.0); Hemoglobin 8.7 g/dl (12.0-16.0); Imm Gran Abs Auto 0.33 X10*3/uL (0.00-0.03); Imm Gran Pct Auto 3.1 % (0.0-0.4); Lymphocytes Absolute Auto 0.4 X10*3/uL (1.2-4.9); Lymphocytes Percent Auto 3.7 % (20-40); MANUAL DIFF FLAG SCAN; Mean Corpuscular HGB Conc 28.8 g/dl (31.0-35.0); Mean Corpuscular Hemoglobin 24.5 pg (27.0-33.0); Mean Corpuscular Volume 85.1 fL (80.0-98.0); Mean Platelet Volume 9.8 fL (9.4-12.3); Monocytes Absolute Auto 0.1 X10*3/uL (0.1-1.2); Monocytes Percent Auto 0.8 % (2-11); Neutrophils Absolute Auto 9.8 x10*3/uL (2.0-8.3); Neutrophils Percent Auto 92.3 % (45-73); Platelet Count 182 X10*3/uL (160-400); Red Blood Count 3.55 X10*6/uL (4.20-5.50); Red Cell Distribution Width 15.4 % (11.0-16.0); SCAN SMEAR FLAG 1; White Blood Count 10.6 X10*3/uL (4.8-10.8)
[2024-10-14 07:35] LABS: Alanine Aminotransferase 10 U/L (0-31); Albumin Level 3.2 g/dL (3.5-5.0); Alkaline Phosphatase 80 U/L (39-117); Anion Gap 11 (12-20); Aspartate Amino Transferase 9 U/L (5-31); Bilirubin Total 0.2 mg/dL (0.0-1.0); Blood Urea Nitrogen 36 mg/dL (9-16); Calcium 8.7 mg/dL (8.4-10.2); Carbon Dioxide 39 mmol/L (22-29); Chloride 97 mmol/L (96-108); Creatinine Clr Calc Pharmacy 77.8; Estimated Glomerular Filt Rate 59; Glucose Fasting 319 mg/dL (60-99); Potassium 4.3 mmol/L (3.3-5.1); Sodium 143 mmol/L (135-145); Total Protein 6.2 g/dL (6.5-8.0)
[2024-10-14] MEDS: Fluticasone/Umeclidinium/Vilanterol 100/62.5/25 BLST.W.DEV 1 PUFF INHALE (07:41)
[2024-10-14] MEDS: Albuterol/Iprat 2.5/0.5MG 3 ML AMPUL.NEB INHALE ×2 (07:42→19:33)
[2024-10-14 08:14] LABS: SLIDE REVIEW VERIFIED
[2024-10-14] MEDS: acetaZOLAMIDE 250 MG TABLET 500 MG PO ×2 (09:00→21:40)
[2024-10-14] MEDS: dilTIAZem HCL CD 240 MG CAP.ER.DEG PO (09:00)
[2024-10-14] MEDS: Cholecalciferol (Vitamin D3) 25 MCG TABLET 50 MCG PO (09:00)
[2024-10-14] MEDS: Doxycycline Monohydrate 100 MG CAPSULE PO ×2 (09:00→21:40)
[2024-10-14] MEDS: Theophylline Anhydrous ER 400 MG TAB.ER.24H PO (09:00)
[2024-10-14] MEDS: Atorvastatin Calcium 80 MG TABLET PO (09:00)
[2024-10-14] MEDS: clonazePAM 1 MG TABLET PO (09:01)
[2024-10-14] MEDS: Ferrous Sulfate 324 MG TABLET.DR PO (09:01)
[2024-10-14] MEDS: Furosemide 20 MG/2 ML VIAL IVPUSH ×2 (09:02→18:04)
[2024-10-14] MEDS: guaiFENesin LA 600 MG TAB.ER.12H PO ×2 (09:02→21:41)
[2024-10-14] MEDS: Ammonium Lactate 12 % Lotion 226 GM BOTTLE 1 APPL TOPICAL ×2 (09:03→21:42)
[2024-10-14] MEDS: Nystatin Powder 15 GM BOTTLE 1 APPL TOPICAL (10:16)
[2024-10-14] MEDS: iohexoL 350 MG/ML 100 ML INFUS..BTL 65 ML IV (11:15)
--- NOTE | 2024-10-14 15:09 | HO.PM.IMPN ---
Subjective Subjective Date of Service: 10/14/24 Interval History: No significant changes overnight. Continues with 6 liters/minute O2 requirement Review of Systems Denies chest pain Admits shortness breath with minimal movement Denies nausea vomiting diarrhea Denies fever chills Physical Exam Vital Signs: Vital Signs: Last Vital Signs Temp 98.2 F 10/14/24 11:40 Pulse 60 10/14/24 11:40 Resp 18 10/14/24 11:40 BP 144/62 H 10/14/24 11:40 Pulse Ox 97 10/14/24 11:40 O2 Del Method Oxymask 10/14/24 11:40 O2 Flow Rate 6 10/14/24 11:40 Oxygen Flow Rate 9 10/08/24 02:39 BMI result Body Mass Index 54.9 Const: Other: Awake alert no acute distress Resp: Other: Diminished throughout with scattered expiratory wheezes and end inspiratory crackles throughout Cardio: Other: No S4; positive S1-S2; no S3 murmurs rubs or gallops GI: Other: Soft nontender nondistended normoactive bowel sounds Extrem: Other: No edema bilaterally Objective Data Active Medications Acetaminophen (Acetaminophen 325 Mg Tablet) 975 mg PO Q6H PRN PRN Reason: Pain, Mild 1-3,fever,headache Last Admin: 10/11/24 05:33 Dose: 975 mg Acetazolamide (Acetazolamide 250 Mg Tablet) 500 mg PO BID [facility] Last Admin: 10/14/24 09:00 Dose: 500 mg Documented By: SEMAJ Albuterol/Ipratropium (Albuterol/Iprat 2.5/0.5mg 3 Ml Ampul.Neb) 3 ml INHALE RQ4H WHILE AWAKE [facility] Last Admin: 10/14/24 11:19 Dose: Not Given Documented By: RANDEE Non-Admin Reason: Patient Refused Albuterol/Ipratropium (Albuterol/Iprat 2.5/0.5mg 3 Ml Ampul.Neb) 3 ml INHALE RQ4H WHILE AWAKE PRN PRN Reason: Shortness of Breath Last Admin: 10/08/24 22:23 Dose: 3 ml Documented By: JOSE MANUEL Atorvastatin Calcium (Atorvastatin Calcium 80 Mg Tablet) 80 mg PO DAILY [facility] Last Admin: 10/14/24 09:00 Dose: 80 mg Documented By: SEMAJ Benzonatate (Benzonatate 100 Mg Capsule) 100 mg PO TID PRN PRN Reason: Cough Calcium Carbonate (Calcium Carbonate 750 Mg Tab.Chew) 750 mg PO Q4H PRN PRN Reason: Heartburn Diltiazem HCl (Diltiazem Hcl Cd 240 Mg Cap.Er.Deg) 240 mg PO DAILY [facility]; Protocol Last Admin: 10/14/24 09:00 Dose: 240 mg Documented By: SEMAJ Doxycycline Monohydrate (Doxycycline Monohydrate 100 Mg Capsule) 100 mg PO Q12H [facility] Last Admin: 10/14/24 09:00 Dose: 100 mg Documented By: SEMAJ Enoxaparin Sodium (Enoxaparin Sodium 40 Mg/0.4 Ml Syringe) 40 mg SUBCUT Q12H [facility] Last Admin: 10/14/24 05:19 Dose: 40 mg Documented By: ANGELLA Ferrous Sulfate (Ferrous Sulfate 324 Mg Tablet.Dr) 324 mg PO DAILY [facility] Last Admin: 10/14/24 09:01 Dose: 324 mg Documented By: SEMAJ Fluticasone/Umeclidinium/Vilanterol (Fluticasone/Umeclidinium/Vilanterol 100/62.5/25 Blst.W.Dev) 1 puff INHALE RDAILY [facility] Last Admin: 10/14/24 07:41 Dose: 1 puff Documented By: RANDEE Furosemide (Furosemide 20 Mg/2 Ml Vial) 20 mg IVPUSH BID@0900,1800 [facility]; Protocol Last Admin: 10/14/24 09:02 Dose: 20 mg Documented By: SEMAJ Guaifenesin (Guaifenesin La 600 Mg Tab.Er.12h) 600 mg PO BID [facility] Last Admin: 10/14/24 09:02 Dose: 600 mg Documented By: SEMAJ Guaifenesin/Dextromethorphan (Guaifenesin Dm 200/20/10 Ml 10 Ml Syrup) 10 ml PO Q6H PRN PRN Reason: Cough Hydromorphone HCl (Hydromorphone Hcl 0.5 Mg/0.5 Ml Syringe) 0.5 mg IVPUSH Q4H PRN; Protocol PRN Reason: Pain, Severe (Pain Scale 7-10) Ampicillin Sodium/Sulbactam (Sodium 3 gm/ Sodium Chloride) 100 mls @ 200 mls/hr IV Q6H [facility] Last Infusion: 10/14/24 13:16 Dose: Infused Documented By: SEMAJ Lactic Acid (Ammonium Lactate 12 % Lotion 226 Gm Bottle) 1 appl TOPICAL BID [facility]; Protocol Last Admin: 10/14/24 09:03 Dose: 1 appl Documented By: SEMAJ Magnesium Hydroxide (Milk Of Magnesia 30 Ml Oral.Susp) 30 ml PO DAILY PRN PRN Reason: Constipation Melatonin (Melatonin 3 Mg Tablet) 6 mg PO BEDTIME PRN PRN Reason: Insomnia Methylprednisolone Sodium Succinate (Methylprednisolone Sod Succ 125 Mg/2 Ml Vial) 60 mg IVPUSH Q8H [facility] Last Admin: 10/14/24 09:02 Dose: 60 mg Documented By: SEMAJ Nystatin (Nystatin Powder 15 Gm Bottle) 1 appl TOPICAL BID [facility]; Protocol Last Admin: 10/14/24 10:16 Dose: 1 appl Documented By: SEMAJ Omeprazole (Omeprazole 20 Mg Capsule.) 20 mg PO DAILY@0630 [facility] Last Admin: 10/14/24 05:48 Dose: 20 mg Documented By: ANGELLA Ondansetron HCl (Ondansetron Hcl 4 Mg/2 Ml Vial) 4 mg IVPUSH Q8H PRN PRN Reason: Nausea and Vomiting Last Admin: 10/12/24 15:44 Dose: 4 mg Documented By: BETHANIE Polyethylene Glycol (Polyethylene Glycol 3350 17 Gm Powd.Pack) 17 gm PO DAILY PRN PRN Reason: Constipation Sodium Chloride (0.9 % Sodium Chloride Flush 3 Ml Syringe) 3 ml IVFLUSH QSHIFT [facility] Last Admin: 10/14/24 09:03 Dose: 3 ml Documented By: SEMAJ Theophylline (Theophylline Anhydrous Er 400 Mg Tab.Er.24h) 400 mg PO DAILY [facility] Last Admin: 10/14/24 09:00 Dose: 400 mg Documented By: SEMAJ Vitamin D (Cholecalciferol (Vitamin D3) 25 Mcg Tablet) 50 mcg PO DAILY [facility] Last Admin: 10/14/24 09:00 Dose: 50 mcg Documented By: SEMAJ Labs 10/14/24 06:40 10/14/24 06:40 Labs: Laboratory Results - last 24 hr 10/14/24 06:40 MCV 85.1 MCH 24.5 L MCHC 28.8 L RDW 15.4 Plt Count 182 MPV 9.8 Immature Gran % (Auto) 3.1 H Neut % (Auto) 92.3 H Lymph % (Auto) 3.7 L Cooper % (Auto) 0.8 L Eos % (Auto) 0.0 Baso % (Auto) 0.1 Lymph # (Auto) 0.4 L Cooper # (Auto) 0.1 Eos # (Auto) 0.0 Baso # (Auto) 0.0 Abs Immat Gran (auto) 0.33 H Absolute Neuts (auto) 9.8 H Absolute Nucleated RBC 0.000 Nucleated RBC % (auto) 0.0 Smear Tech's Comments VERIFIED Anion Gap 11 L Estim Creat Clear Calc 77.8 Estimated GFR 59 Fasting Glucose 319 H Calcium 8.7 Total Bilirubin 0.2 AST 9 ALT 10 Alkaline Phosphatase 80 Total Protein 6.2 L Albumin 3.2 L Assessment and Plan (1) Influenza A: Status: Acute (2) Status post incision and drainage: Status: Acute Plan 64yo F with HFpEF, COPD, obesity, chronic osteomyelitis, chronic hypercarbic/hypoxic resp failure on home O2 + nighttime BiPAP recently admitted for R axillary abscess for which she underwent I+D and grew MSSA presenting with cough and dyspnea, admitted for sepsis due to cellulitis/abscess, acute/chronic respiratory failure with COPD exacerbation due to flu A 1.Acute/chronic respiratory failure with hypoxia/hypercapnea with acute COPD exacerbation to influenza A - continue BiPAP at sleep and with naps, continue oseltamivir 10/08-10/12;methylpred 60mg q6h -prn nebs, continue doxycycline; add Diamox -CT chest consistent with plain film 2.Sepsis due to cellulitis/abscess R axilla - continue ampicillin-sulbactam 10/08 - Cleanse and irrigate with NS, Pat dry.? Apply antifungal powder dust off excess followed by skin prep to seal in place, lightly pack with Durafiber AG, be sure to leave a wick to easy removal.? Cover with dry dressing daily 3.Acute/chronic HFpEF - will change PO back to IV furosemide 4.pAF -acceptable rate control - continue diltiazem; not on anticoagulation Enoxaparin Full code In my clinical judgment, the patient requires continued inpatient hospitalization for the following reasons: hypoxia/hypercarbia, IV ABX Quality Stroke Does the patient have a stroke diagnosis?: No VTE Prior VTE?: No VTE Risk Level:: Medical - moderate - high VTE Device Contraindication: Treatment Not Indicated VTE Drug Contraindication: N/A - Med Ordered
[2024-10-15] VITALS (12 sets, daily range): BP systolic 140–185; BP diastolic 62–84; PULSE 63–96; RESP 18–23; TEMP 36.3–36.9; O2SAT 93–100
--- NOTE | 2024-10-15 00:46 | PC.RT ---
RT went to patient's room to assess home CPAP unit to notice the patient sitting on the side of the bed with the full face mask on having a conversation with partner. RT noticed machine was not on nor CPAP cord/plug not plugged into outlet and machine. Cord found in patient's drawer while patient had full face mask on for an unknown period of time. RT assessed patient's home unit, cord plugged machine and into red outlet, and educated patient on importance of home use to be sure machine is plugged in and for the patient not to have the full face mask on while machine is off. Educated patient the importance and the safety issues that could arise with rebreathing CO2 while having the full face mask on with machine off. At this time patient is stable, on home CPAP unit, RN and tree shear operator aware of situation. O2 titrated into home unit, pt remains on continuous monitoring at this time. RN will call if further interventions are needed by RT.
[2024-10-15] MEDS: Ampicillin Sodium/Sulbactam Na 3 GM in 0.9 % Sodium Chloride 100 ML IV ×3 (01:03→17:43)
[2024-10-15] MEDS: 0.9 % Sodium Chloride Flush 3 ML SYRINGE IVFLUSH ×4 (01:03→21:25)
[2024-10-15] MEDS: methylPREDNISolone Sod Succ 125 MG/2 ML VIAL 60 MG IVPUSH ×3 (01:03→17:42)
[2024-10-15 07:03] LABS: Venous Blood Gas Refer to POC result
[2024-10-15 07:04] LABS: VBG Base Excess 12.9 mmol/L; VBG HCO3 44 mmol/L (22-26); VBG pCO2 97 mmHg; VBG pH 7.26 (7.32-7.43); VBG pO2 41 mmHg
[2024-10-15 07:09] LABS: Basophils Percent Auto 0.1 % (0-2); Hematocrit 35.3 % (37.0-47.0); Imm Gran Abs Auto 0.35 X10*3/uL (0.00-0.03); Imm Gran Pct Auto 2.5 % (0.0-0.4); Lymphocytes Absolute Auto 0.4 X10*3/uL (1.2-4.9); Lymphocytes Percent Auto 2.5 % (20-40); MANUAL DIFF FLAG SCAN; Mean Corpuscular HGB Conc 28.3 g/dl (31.0-35.0); Mean Corpuscular Hemoglobin 24.2 pg (27.0-33.0); Mean Corpuscular Volume 85.5 fL (80.0-98.0); Mean Platelet Volume 9.9 fL (9.4-12.3); Monocytes Absolute Auto 0.1 X10*3/uL (0.1-1.2); NRBC Pct Auto 0.2 /100WBC (0.0-0.2); Neutrophils Percent Auto 93.9 % (45-73); Platelet Count 266 X10*3/uL (160-400); Red Blood Count 4.13 X10*6/uL (4.20-5.50); Red Cell Distribution Width 15.7 % (11.0-16.0); SCAN SMEAR FLAG 1; White Blood Count 13.9 X10*3/uL (4.8-10.8)
[2024-10-15 07:27] LABS: Alanine Aminotransferase 11 U/L (0-31); Albumin Level 3.9 g/dL (3.5-5.0); Alkaline Phosphatase 98 U/L (39-117); Anion Gap 14 (12-20); Aspartate Amino Transferase 11 U/L (5-31); Bilirubin Total 0.3 mg/dL (0.0-1.0); Blood Urea Nitrogen 39 mg/dL (9-16); Calcium 9.1 mg/dL (8.4-10.2); Carbon Dioxide 36 mmol/L (22-29); Chloride 97 mmol/L (96-108); Creatinine Clr Calc Pharmacy 66.6; Estimated Glomerular Filt Rate 50; Glucose Fasting 276 mg/dL (60-99); Potassium 3.5 mmol/L (3.3-5.1); Sodium 143 mmol/L (135-145); Total Protein 7.6 g/dL (6.5-8.0)
[2024-10-15 07:32] LABS: SLIDE REVIEW VERIFIED
[2024-10-15 07:39] LABS: B Type Natriuretic Peptide 189 pg/mL (<100)
[2024-10-15] MEDS: Fluticasone/Umeclidinium/Vilanterol 100/62.5/25 BLST.W.DEV 1 PUFF INHALE (07:51)
[2024-10-15] MEDS: Albuterol/Iprat 2.5/0.5MG 3 ML AMPUL.NEB INHALE (07:51)
[2024-10-15] MEDS: Atorvastatin Calcium 80 MG TABLET PO (08:13)
[2024-10-15] MEDS: dilTIAZem HCL CD 240 MG CAP.ER.DEG PO (08:13)
[2024-10-15] MEDS: acetaZOLAMIDE 250 MG TABLET 500 MG PO ×2 (08:13→21:23)
[2024-10-15] MEDS: Theophylline Anhydrous ER 400 MG TAB.ER.24H PO (08:13)
[2024-10-15] MEDS: Doxycycline Monohydrate 100 MG CAPSULE PO ×2 (08:14→21:23)
[2024-10-15] MEDS: Ferrous Sulfate 324 MG TABLET.DR PO (08:14)
[2024-10-15] MEDS: Cholecalciferol (Vitamin D3) 25 MCG TABLET 50 MCG PO (08:14)
[2024-10-15] MEDS: clonazePAM 1 MG TABLET PO (08:14)
[2024-10-15] MEDS: guaiFENesin LA 600 MG TAB.ER.12H PO ×2 (08:15→21:27)
[2024-10-15] MEDS: Furosemide 20 MG/2 ML VIAL IVPUSH ×2 (08:15→17:42)
[2024-10-15] MEDS: oxyCODONE HCl Immed Release 5 MG TABLET 20 MG PO ×4 (10:37→21:23)
[2024-10-15] MEDS: Ammonium Lactate 12 % Lotion 226 GM BOTTLE 1 APPL TOPICAL ×2 (10:38→21:25)
[2024-10-15] MEDS: Nystatin Powder 15 GM BOTTLE 1 APPL TOPICAL ×2 (10:39→21:28)
--- NOTE | 2024-10-15 11:43 | P.PNIM_ITS ---
Subjective Subjective Date of Service: 10/15/24 Interval History: Episode of confusion overnight. Opiates held. Back to baseline this morning Review of Systems Denies chest pain Admits shortness breath with minimal movement Denies nausea vomiting diarrhea Denies fever chills Physical Exam 2 Vital Signs: Vital Signs: Last Vital Signs Temp 98.4 F 10/15/24 11:11 Pulse 76 10/15/24 11:11 Resp 20 10/15/24 11:11 BP 140/62 H 10/15/24 11:11 Pulse Ox 93 10/15/24 11:11 O2 Del Method Oxymask 10/15/24 11:11 O2 Flow Rate 6 10/15/24 11:11 Oxygen Flow Rate 9 10/08/24 02:39 BMI result Body Mass Index 54.9 Const: Other: Awake alert no acute distress Resp: Other: Diminished throughout with scattered expiratory wheezes and end inspiratory crackles throughout Cardio: Other: No S4; positive S1-S2; no S3 murmurs rubs or gallops GI: Other: Soft nontender nondistended normoactive bowel sounds Extrem: Other: No edema bilaterally Objective Data Active Medications Acetaminophen (Acetaminophen 325 Mg Tablet) 975 mg PO Q6H PRN PRN Reason: Pain, Mild 1-3,fever,headache Last Admin: 10/11/24 05:33 Dose: 975 mg Acetazolamide (Acetazolamide 250 Mg Tablet) 500 mg PO BID [facility] Last Admin: 10/15/24 08:13 Dose: 500 mg Documented By: SEMAJ Albuterol/Ipratropium (Albuterol/Iprat 2.5/0.5mg 3 Ml Ampul.Neb) 3 ml INHALE RQ4H WHILE AWAKE PRN PRN Reason: Shortness of Breath Last Admin: 10/08/24 22:23 Dose: 3 ml Documented By: JOSE MANUEL Atorvastatin Calcium (Atorvastatin Calcium 80 Mg Tablet) 80 mg PO DAILY [facility] Last Admin: 10/15/24 08:13 Dose: 80 mg Documented By: SEMAJ Benzonatate (Benzonatate 100 Mg Capsule) 100 mg PO TID PRN PRN Reason: Cough Calcium Carbonate (Calcium Carbonate 750 Mg Tab.Chew) 750 mg PO Q4H PRN PRN Reason: Heartburn Clonazepam (Clonazepam 1 Mg Tablet) 1 mg PO DAILY [facility] Stop: 11/14/24 08:59 Last Admin: 10/15/24 08:14 Dose: 1 mg Documented By: SEMAJ Diltiazem HCl (Diltiazem Hcl Cd 240 Mg Cap.Er.Deg) 240 mg PO DAILY [facility]; Protocol Last Admin: 10/15/24 08:13 Dose: 240 mg Documented By: SEMAJ Doxycycline Monohydrate (Doxycycline Monohydrate 100 Mg Capsule) 100 mg PO Q12H [facility] Last Admin: 10/15/24 08:14 Dose: 100 mg Documented By: SEMAJ Enoxaparin Sodium (Enoxaparin Sodium 40 Mg/0.4 Ml Syringe) 40 mg SUBCUT Q12H [facility] Last Admin: 10/15/24 05:48 Dose: Not Given Documented By: ANGELLA Non-Admin Reason: Patient Refused Ferrous Sulfate (Ferrous Sulfate 324 Mg Tablet.Dr) 324 mg PO DAILY [facility] Last Admin: 10/15/24 08:14 Dose: 324 mg Documented By: SEMAJ Fluticasone/Umeclidinium/Vilanterol (Fluticasone/Umeclidinium/Vilanterol 100/62.5/25 Blst.W.Dev) 1 puff INHALE RDAILY [facility] Last Admin: 10/15/24 07:51 Dose: 1 puff Documented By: RANDEE Furosemide (Furosemide 20 Mg/2 Ml Vial) 20 mg IVPUSH BID@0900,1800 [facility]; Protocol Last Admin: 10/15/24 08:15 Dose: 20 mg Documented By: SEMAJ Guaifenesin (Guaifenesin La 600 Mg Tab.Er.12h) 600 mg PO BID [facility] Last Admin: 10/15/24 08:15 Dose: 600 mg Documented By: SEMAJ Guaifenesin/Dextromethorphan (Guaifenesin Dm 200/20/10 Ml 10 Ml Syrup) 10 ml PO Q6H PRN PRN Reason: Cough Hydromorphone HCl (Hydromorphone Hcl 0.5 Mg/0.5 Ml Syringe) 0.5 mg IVPUSH Q4H PRN; Protocol PRN Reason: Pain, Severe (Pain Scale 7-10) Ampicillin Sodium/Sulbactam (Sodium 3 gm/ Sodium Chloride) 100 mls @ 200 mls/hr IV Q6H [facility] Last Admin: 10/15/24 06:10 Dose: Not Given Documented By: ANGELLA Non-Admin Reason: Patient Refused Comments: Dr. Clark notified. Lactic Acid (Ammonium Lactate 12 % Lotion 226 Gm Bottle) 1 appl TOPICAL BID [facility]; Protocol Last Admin: 10/15/24 10:38 Dose: 1 appl Documented By: SEMAJ Magnesium Hydroxide (Milk Of Magnesia 30 Ml Oral.Susp) 30 ml PO DAILY PRN PRN Reason: Constipation Melatonin (Melatonin 3 Mg Tablet) 6 mg PO BEDTIME PRN PRN Reason: Insomnia Methylprednisolone Sodium Succinate (Methylprednisolone Sod Succ 125 Mg/2 Ml Vial) 60 mg IVPUSH Q8H [facility] Last Admin: 10/15/24 08:15 Dose: 60 mg Documented By: SEMAJ Nystatin (Nystatin Powder 15 Gm Bottle) 1 appl TOPICAL BID [facility]; Protocol Last Admin: 10/15/24 10:39 Dose: 1 appl Documented By: SEMAJ Omeprazole (Omeprazole 20 Mg ) 20 mg PO DAILY@0630 [facility] Last Admin: 10/15/24 06:10 Dose: Not Given Documented By: ANGELAL Non-Admin Reason: Patient Refused Ondansetron HCl (Ondansetron Hcl 4 Mg/2 Ml Vial) 4 mg IVPUSH Q8H PRN PRN Reason: Nausea and Vomiting Last Admin: 10/12/24 15:44 Dose: 4 mg Documented By: BETHANIE Oxycodone HCl (Oxycodone Hcl Immed Release 5 Mg Tablet) 20 mg PO 5XD [facility] Last Admin: 10/15/24 10:37 Dose: 20 mg Documented By: SEMAJ Polyethylene Glycol (Polyethylene Glycol 3350 17 Gm Powd.Pack) 17 gm PO DAILY PRN PRN Reason: Constipation Sodium Chloride (0.9 % Sodium Chloride Flush 3 Ml Syringe) 3 ml IVFLUSH QSHIFT [facility] Last Admin: 10/15/24 08:14 Dose: 3 ml Documented By: SEMAJ Theophylline (Theophylline Anhydrous Er 400 Mg Tab.Er.24h) 400 mg PO DAILY [facility] Last Admin: 10/15/24 08:13 Dose: 400 mg Documented By: SEMAJ Vitamin D (Cholecalciferol (Vitamin D3) 25 Mcg Tablet) 50 mcg PO DAILY [facility] Last Admin: 10/15/24 08:14 Dose: 50 mcg Documented By: SEMAJ Labs 10/15/24 06:51 10/15/24 06:51 Labs: Laboratory Results - last 24 hr 10/15/24 10/15/24 06:51 06:59 MCV 85.5 MCH 24.2 L MCHC 28.3 L RDW 15.7 Plt Count 266 D MPV 9.9 Immature Gran % (Auto) 2.5 H Neut % (Auto) 93.9 H Lymph % (Auto) 2.5 L Spencer % (Auto) 1.0 L Eos % (Auto) 0.0 Baso % (Auto) 0.1 Lymph # (Auto) 0.4 L Spencer # (Auto) 0.1 Eos # (Auto) 0.0 Baso # (Auto) 0.0 Abs Immat Gran (auto) 0.35 H Absolute Neuts (auto) 13.0 H Absolute Nucleated RBC 0.030 H Nucleated RBC % (auto) 0.2 Smear Tech's Comments VERIFIED VBG pH 7.26 L VBG pCO2 97 VBG pO2 41 VBG HCO3 44 H VBG O2 Saturation 61.0 VBG Base Excess 12.9 Anion Gap 14 Estim Creat Clear Calc 66.6 Estimated GFR 50 Fasting Glucose 276 H Calcium 9.1 Total Bilirubin 0.3 AST 11 ALT 11 Alkaline Phosphatase 98 B-Natriuretic Peptide 189 H Total Protein 7.6 Albumin 3.9 Assessment and Plan (1) Influenza A: Status: Acute (2) Acute exacerbation of chronic obstructive pulmonary disease: Status: Acute Plan 64yo F with HFpEF, COPD, obesity, chronic osteomyelitis, chronic hypercarbic/hypoxic resp failure on home O2 + nighttime BiPAP recently admitted for R axillary abscess for which she underwent I+D and grew MSSA presenting with cough and dyspnea, admitted for sepsis due to cellulitis/abscess, acute/chronic respiratory failure with COPD exacerbation due to flu A 1.Acute/chronic respiratory failure with hypoxia/hypercapnea with acute COPD exacerbation to influenza A -follow ABGs noted hypercapnia - restart BiPAP at sleep and with naps, continue oseltamivir 10/08- 10/12;methylpred 60mg q6h -prn nebs, continue doxycycline; add Diamox -CT chest consistent with plain film 2.Sepsis due to cellulitis/abscess R axilla - continue ampicillin-sulbactam 10/08 - Cleanse and irrigate with NS, Pat dry.? Apply antifungal powder dust off excess followed by skin prep to seal in place, lightly pack with Durafiber AG, be sure to leave a wick to easy removal.? Cover with dry dressing daily 3.Acute/chronic HFpEF - will change PO back to IV furosemide 4.pAF -acceptable rate control - continue diltiazem; not on anticoagulation Enoxaparin Full code In my clinical judgment, the patient requires continued inpatient hospitalization for the following reasons: hypoxia/hypercarbia, IV ABX Quality Stroke Does the patient have a stroke diagnosis?: No VTE Prior VTE?: No VTE Risk Level:: Medical - moderate - high VTE Device Contraindication: Treatment Not Indicated VTE Drug Contraindication: N/A - Med Ordered
[2024-10-15 16:05] LABS: Venous Blood Gas Refer to POC result
[2024-10-15 16:06] LABS: VBG Base Excess 12.4 mmol/L; VBG HCO3 41 mmol/L (22-26); VBG pCO2 80 mmHg; VBG pH 7.32 (7.32-7.43); VBG pO2 131 mmHg
[2024-10-15] MEDS: Enoxaparin Sodium 40 MG/0.4 ML SYRINGE SUBCUT (17:43)
[2024-10-16] VITALS (11 sets, daily range): BP systolic 142–189; BP diastolic 75–90; PULSE 55–76; RESP 18–26; TEMP 36.1–36.6; O2SAT 92–98
[2024-10-16] MEDS: methylPREDNISolone Sod Succ 125 MG/2 ML VIAL 60 MG IVPUSH ×3 (01:27→17:33)
[2024-10-16] MEDS: Ampicillin Sodium/Sulbactam Na 3 GM in 0.9 % Sodium Chloride 100 ML IV ×4 (01:27→17:32)
[2024-10-16] MEDS: Enoxaparin Sodium 40 MG/0.4 ML SYRINGE SUBCUT ×2 (05:04→17:32)
[2024-10-16] MEDS: Omeprazole 20 MG CAPSULE.DR PO (05:05)
[2024-10-16] MEDS: oxyCODONE HCl Immed Release 5 MG TABLET 20 MG PO ×4 (05:05→17:32)
[2024-10-16] MEDS: Fluticasone/Umeclidinium/Vilanterol 100/62.5/25 BLST.W.DEV 1 PUFF INHALE (07:26)
[2024-10-16 08:54] LABS: Venous Blood Gas Refer to POC result
[2024-10-16 08:55] LABS: VBG Base Excess 11.6 mmol/L; VBG HCO3 42 mmol/L (22-26); VBG pCO2 95 mmHg; VBG pH 7.25 (7.32-7.43); VBG pO2 44 mmHg
[2024-10-16] MEDS: Ferrous Sulfate 324 MG TABLET.DR PO (09:28)
[2024-10-16] MEDS: Doxycycline Monohydrate 100 MG CAPSULE PO ×2 (09:28→20:08)
[2024-10-16] MEDS: acetaZOLAMIDE 250 MG TABLET 500 MG PO ×2 (09:28→20:08)
[2024-10-16] MEDS: clonazePAM 1 MG TABLET PO (09:29)
[2024-10-16] MEDS: guaiFENesin LA 600 MG TAB.ER.12H PO ×2 (09:29→20:09)
[2024-10-16] MEDS: Theophylline Anhydrous ER 400 MG TAB.ER.24H PO (09:29)
[2024-10-16] MEDS: Atorvastatin Calcium 80 MG TABLET PO (09:29)
[2024-10-16] MEDS: dilTIAZem HCL CD 240 MG CAP.ER.DEG PO (09:29)
[2024-10-16] MEDS: Cholecalciferol (Vitamin D3) 25 MCG TABLET 50 MCG PO (09:29)
[2024-10-16] MEDS: Furosemide 20 MG/2 ML VIAL IVPUSH ×2 (09:30→17:32)
[2024-10-16] MEDS: Ammonium Lactate 12 % Lotion 226 GM BOTTLE 1 APPL TOPICAL ×2 (09:31→20:11)
[2024-10-16] MEDS: 0.9 % Sodium Chloride Flush 3 ML SYRINGE IVFLUSH ×2 (09:31→15:21)
--- NOTE | 2024-10-16 11:30 | MHC.CM.PN ---
Per [facility], Patient is not yet medically cleared for dc (IV ABT, IV Lasix, IV Solu Medrol);PT is recommending home with services and CM will follow.
--- NOTE | 2024-10-16 14:25 | MHC.CM.PN ---
CM met with Patient and her to discuss dc planning. Patient currently is approved for [facility].5 [employer] [facility] hours/week and was evaluated to see if hours could be increased;CM encouraged Patient to contact her [employer] Worker for any assistance they can provide with locating a [facility] for Patient. [facility] is not able to accept Patient back but [facility] is following. CM will follow.
--- NOTE | 2024-10-16 16:18 | P.PNIM_ITS ---
Subjective Subjective Date of Service: 10/16/24 Interval History: Continues to utilize BiPAP overnight however VBG is in a.m. demonstrate CO2 of 90. She voices no complaints in his mentating well Review of Systems Denies chest pain Admits shortness breath with minimal movement Denies nausea vomiting diarrhea Denies fever chills Physical Exam 2 Vital Signs: Vital Signs: Last Vital Signs Temp 97.3 F 10/16/24 11:16 Pulse 76 10/16/24 11:16 Resp 18 10/16/24 11:16 BP 146/78 H 10/16/24 11:16 Pulse Ox 94 10/16/24 11:16 O2 Del Method Nasal Cannula 10/16/24 11:16 O2 Flow Rate 3 10/16/24 11:16 Oxygen Flow Rate 9 10/08/24 02:39 BMI result Body Mass Index 54.9 Const: Other: Awake alert no acute distress Resp: Other: Diminished throughout with scattered expiratory wheezes and end inspiratory crackles throughout Cardio: Other: No S4; positive S1-S2; no S3 murmurs rubs or gallops GI: Other: Soft nontender nondistended normoactive bowel sounds Extrem: Other: No edema bilaterally Objective Data Active Medications Acetaminophen (Acetaminophen 325 Mg Tablet) 975 mg PO Q6H PRN PRN Reason: Pain, Mild 1-3,fever,headache Last Admin: 10/11/24 05:33 Dose: 975 mg Acetazolamide (Acetazolamide 250 Mg Tablet) 500 mg PO BID [facility] Last Admin: 10/16/24 09:28 Dose: 500 mg Documented By: BALTAZAR Atorvastatin Calcium (Atorvastatin Calcium 80 Mg Tablet) 80 mg PO DAILY [facility] Last Admin: 10/16/24 09:29 Dose: 80 mg Documented By: BALTAZAR Benzonatate (Benzonatate 100 Mg Capsule) 100 mg PO TID PRN PRN Reason: Cough Calcium Carbonate (Calcium Carbonate 750 Mg Tab.Chew) 750 mg PO Q4H PRN PRN Reason: Heartburn Clonazepam (Clonazepam 1 Mg Tablet) 1 mg PO DAILY [facility] Stop: 11/14/24 08:59 Last Admin: 10/16/24 09:29 Dose: 1 mg Documented By: BALTAZAR Diltiazem HCl (Diltiazem Hcl Cd 240 Mg Cap.Er.Deg) 240 mg PO DAILY [facility]; Protocol Last Admin: 10/16/24 09:29 Dose: 240 mg Documented By: BALTAZAR Doxycycline Monohydrate (Doxycycline Monohydrate 100 Mg Capsule) 100 mg PO Q12H [facility] Last Admin: 10/16/24 09:28 Dose: 100 mg Documented By: BALTAZAR Enoxaparin Sodium (Enoxaparin Sodium 40 Mg/0.4 Ml Syringe) 40 mg SUBCUT Q12H [facility] Last Admin: 10/16/24 05:04 Dose: 40 mg Documented By: VALENTE Ferrous Sulfate (Ferrous Sulfate 324 Mg Tablet.Dr) 324 mg PO DAILY [facility] Last Admin: 10/16/24 09:28 Dose: 324 mg Documented By: BALTAZAR Fluticasone/Umeclidinium/Vilanterol (Fluticasone/Umeclidinium/Vilanterol 100/62.5/25 Blst.W.Dev) 1 puff INHALE RDAILY [facility] Last Admin: 10/16/24 07:26 Dose: 1 puff Documented By: JEAN-PAUL Furosemide (Furosemide 20 Mg/2 Ml Vial) 20 mg IVPUSH BID@0900,1800 [facility]; Protocol Last Admin: 10/16/24 09:30 Dose: 20 mg Documented By: BALTAZAR Guaifenesin (Guaifenesin La 600 Mg Tab.Er.12h) 600 mg PO BID [facility] Last Admin: 10/16/24 09:29 Dose: 600 mg Documented By: BALTAZAR Guaifenesin/Dextromethorphan (Guaifenesin Dm 200/20/10 Ml 10 Ml Syrup) 10 ml PO Q6H PRN PRN Reason: Cough Hydromorphone HCl (Hydromorphone Hcl 0.5 Mg/0.5 Ml Syringe) 0.5 mg IVPUSH Q4H PRN; Protocol PRN Reason: Pain, Severe (Pain Scale 7-10) Ampicillin Sodium/Sulbactam (Sodium 3 gm/ Sodium Chloride) 100 mls @ 200 mls/hr IV Q6H [facility] Last Infusion: 10/16/24 13:56 Dose: Infused Documented By: BALTAZAR Lactic Acid (Ammonium Lactate 12 % Lotion 226 Gm Bottle) 1 appl TOPICAL BID [facility]; Protocol Last Admin: 10/16/24 09:31 Dose: 1 appl Documented By: BALTAZAR Magnesium Hydroxide (Milk Of Magnesia 30 Ml Oral.Susp) 30 ml PO DAILY PRN PRN Reason: Constipation Melatonin (Melatonin 3 Mg Tablet) 6 mg PO BEDTIME PRN PRN Reason: Insomnia Methylprednisolone Sodium Succinate (Methylprednisolone Sod Succ 125 Mg/2 Ml Vial) 60 mg IVPUSH Q8H [facility] Last Admin: 10/16/24 09:30 Dose: 60 mg Documented By: BALTAZAR Nystatin (Nystatin Powder 15 Gm Bottle) 1 appl TOPICAL BID [facility]; Protocol Last Admin: 10/16/24 09:32 Dose: Not Given Documented By: BALTAZAR Non-Admin Reason: Patient Refused Omeprazole (Omeprazole 20 Mg Capsule.) 20 mg PO DAILY@0630 [facility] Last Admin: 10/16/24 05:05 Dose: 20 mg Documented By: VALENTE Ondansetron HCl (Ondansetron Hcl 4 Mg/2 Ml Vial) 4 mg IVPUSH Q8H PRN PRN Reason: Nausea and Vomiting Last Admin: 10/12/24 15:44 Dose: 4 mg Documented By: BETHANIE Oxycodone HCl (Oxycodone Hcl Immed Release 5 Mg Tablet) 20 mg PO 5XD [facility] Last Admin: 10/16/24 15:21 Dose: 20 mg Documented By: BALTAZAR Polyethylene Glycol (Polyethylene Glycol 3350 17 Gm Powd.Pack) 17 gm PO DAILY PRN PRN Reason: Constipation Sodium Chloride (0.9 % Sodium Chloride Flush 3 Ml Syringe) 3 ml IVFLUSH QSHIFT [facility] Last Admin: 10/16/24 15:21 Dose: 3 ml Documented By: BALTAZAR Theophylline (Theophylline Anhydrous Er 400 Mg Tab.Er.24h) 400 mg PO DAILY [facility] Last Admin: 10/16/24 09:29 Dose: 400 mg Documented By: BATLAZAR Vitamin D (Cholecalciferol (Vitamin D3) 25 Mcg Tablet) 50 mcg PO DAILY [facility] Last Admin: 10/16/24 09:29 Dose: 50 mcg Documented By: BALTAZAR Labs 10/15/24 06:51 10/15/24 06:51 Labs: Laboratory Results - last 24 hr 10/16/24 08:50 VBG pH 7.25 L VBG pCO2 95 VBG pO2 44 VBG HCO3 42 H VBG O2 Saturation 66.0 VBG Base Excess 11.6 Assessment and Plan (1) Influenza A: Status: Acute (2) Acute exacerbation of chronic obstructive pulmonary disease: Status: Acute Plan 64yo F with HFpEF, COPD, obesity, chronic osteomyelitis, chronic hypercarbic/hypoxic resp failure on home O2 + nighttime BiPAP recently admitted for R axillary abscess for which she underwent I+D and grew MSSA presenting with cough and dyspnea, admitted for sepsis due to cellulitis/abscess, acute/chronic respiratory failure with COPD exacerbation due to flu A 1.Acute/chronic respiratory failure with hypoxia/hypercapnea with acute COPD exacerbation to influenza A -persistent hypercapnia - BiPAP... Settings increased to 14/03;sleep and with naps, continue oseltamivir 10/08-10/12;methylpred 60mg q6h -prn nebs, continue doxycycline; add Diamox -CT chest consistent with plain film -discuss with Pulmonary. . . We will need BiPAP at home only has CPAP 2.Sepsis due to cellulitis/abscess R axilla - continue ampicillin-sulbactam 10/08 - Cleanse and irrigate with NS, Pat dry.? Apply antifungal powder dust off excess followed by skin prep to seal in place, lightly pack with Durafiber AG, be sure to leave a wick to easy removal.? Cover with dry dressing daily 3.Acute/chronic HFpEF - will change PO back to IV furosemide 4.pAF -acceptable rate control - continue diltiazem; not on anticoagulation Enoxaparin Full code In my clinical judgment, the patient requires continued inpatient hospitalization for the following reasons: hypoxia/hypercarbia, IV ABX Quality Stroke Does the patient have a stroke diagnosis?: No VTE Prior VTE?: No VTE Risk Level:: Medical - moderate - high VTE Device Contraindication: Treatment Not Indicated VTE Drug Contraindication: N/A - Med Ordered
--- NOTE | 2024-10-16 16:19 | PC.RT ---
RT and MD at bedside w/ pt and pt . Explained to them that pt requires bipap at bedtime but also periodically throughout the day to keep CO2 lowered and reduce retaining. Per MD, settings increased to 20/8 R18. O2 goal is 86-88%. Pt and pt understanding and accepting. Pt on hospital V60 at this time. MD to request pulmonary consult.
[2024-10-17] VITALS (12 sets, daily range): BP systolic 145–189; BP diastolic 65–81; PULSE 9–76; RESP 16–28; TEMP 36.1–36.4; O2SAT 92–98
[2024-10-17] MEDS: hydrALAZINE HCl 20 MG/ML VIAL 10 MG IVPUSH (00:22)
[2024-10-17] MEDS: methylPREDNISolone Sod Succ 125 MG/2 ML VIAL 60 MG IVPUSH ×2 (00:22→09:10)
[2024-10-17] MEDS: 0.9 % Sodium Chloride Flush 3 ML SYRINGE IVFLUSH ×3 (00:23→20:16)
[2024-10-17] MEDS: oxyCODONE HCl Immed Release 5 MG TABLET 20 MG PO ×6 (00:29→20:09)
[2024-10-17] MEDS: Ampicillin Sodium/Sulbactam Na 3 GM in 0.9 % Sodium Chloride 100 ML IV ×3 (00:32→13:03)
--- NOTE | 2024-10-17 03:03 | PC.NURSE ---
SBP in [address] Willard notified 10mg IV hydralazine given with little effect. SBP remains in 170's after multiple rechecks. Dr Willard notified.
[2024-10-17] MEDS: HYDROmorphone HCl 0.5 MG/0.5 ML SYRINGE IVPUSH (04:52)
[2024-10-17] MEDS: Enoxaparin Sodium 40 MG/0.4 ML SYRINGE SUBCUT ×2 (04:52→17:14)
[2024-10-17] MEDS: Omeprazole 20 MG CAPSULE.DR PO (06:04)
[2024-10-17] MEDS: Fluticasone/Umeclidinium/Vilanterol 100/62.5/25 BLST.W.DEV 1 PUFF INHALE (07:48)
[2024-10-17] MEDS: Furosemide 20 MG/2 ML VIAL IVPUSH (09:10)
[2024-10-17] MEDS: dilTIAZem HCL CD 240 MG CAP.ER.DEG PO (09:11)
[2024-10-17] MEDS: guaiFENesin LA 600 MG TAB.ER.12H PO ×2 (09:11→20:09)
[2024-10-17] MEDS: Doxycycline Monohydrate 100 MG CAPSULE PO ×2 (09:11→20:09)
[2024-10-17] MEDS: acetaZOLAMIDE 250 MG TABLET 500 MG PO ×2 (09:11→20:10)
[2024-10-17] MEDS: Cholecalciferol (Vitamin D3) 25 MCG TABLET 50 MCG PO (09:11)
[2024-10-17] MEDS: Atorvastatin Calcium 80 MG TABLET PO (09:11)
[2024-10-17] MEDS: clonazePAM 1 MG TABLET PO (09:11)
[2024-10-17] MEDS: Ferrous Sulfate 324 MG TABLET.DR PO (09:12)
[2024-10-17] MEDS: Theophylline Anhydrous ER 400 MG TAB.ER.24H PO (09:12)
[2024-10-17 10:51] LABS: VBG Base Excess 10.8 mmol/L; VBG HCO3 40 mmol/L (22-26); VBG pCO2 77 mmHg; VBG pH 7.31 (7.32-7.43); VBG pO2 57 mmHg
[2024-10-17 10:51] LABS: Hematocrit 36.5 % (37.0-47.0); Hemoglobin 10.8 g/dl (12.0-16.0); Mean Corpuscular HGB Conc 29.6 g/dl (31.0-35.0); Mean Corpuscular Hemoglobin 24.7 pg (27.0-33.0); Mean Corpuscular Volume 83.3 fL (80.0-98.0); Mean Platelet Volume 9.7 fL (9.4-12.3); Platelet Count 246 X10*3/uL (160-400); Red Blood Count 4.38 X10*6/uL (4.20-5.50); Red Cell Distribution Width 16.4 % (11.0-16.0); Venous Blood Gas Refer to POC result; White Blood Count 13.8 X10*3/uL (4.8-10.8)
[2024-10-17 11:32] LABS: B Type Natriuretic Peptide 81 pg/mL (<100)
[2024-10-17 11:50] LABS: Anion Gap 14 (12-20); Blood Urea Nitrogen 46 mg/dL (9-16); C Reactive Protein 0.17 mg/dL (< or = 0.50); Calcium 8.6 mg/dL (8.4-10.2); Carbon Dioxide 34 mmol/L (22-29); Chloride 99 mmol/L (96-108); Creatinine Clr Calc Pharmacy 57.7; Estimated Glomerular Filt Rate 42; Potassium 3.5 mmol/L (3.3-5.1); Sodium 143 mmol/L (135-145)
[2024-10-17 11:55] LABS: Glucose Random 365 mg/dL (60-115)
--- NOTE | 2024-10-17 14:54 | P.PNIM_ITS ---
Subjective Subjective Date of Service: 10/17/24 Interval History: had some hallucinations yesterday; resolved breathing improved no chest pain no fever Review of Systems Review of Systems: Yes all other systems are reviewed and are negative Physical Exam 2 Vital Signs: Vital Signs: Last Vital Signs Temp 96.9 F 10/17/24 11:59 Pulse 57 10/17/24 13:41 Resp 16 10/17/24 11:59 BP 154/67 H 10/17/24 13:41 Pulse Ox 93 10/17/24 13:41 O2 Del Method BiPAP 10/17/24 11:59 O2 Flow Rate 3 10/16/24 19:09 FiO2 30 10/17/24 11:59 Oxygen Flow Rate 9 10/08/24 02:39 BMI result Body Mass Index 54.9 Gen: NAD HEENT: sclera anicteric, moist mucus membranes Neck: supple Lungs: diminished Heart: regular rate and rhythm, no murmurs Abd: soft, non-tender, non-distended, obese Ext: bilateral leg edema Skin: warm/well-perfused, R axila with drained abscess and minimal surrounding erythema + induration Neuro: alert and oriented x3, no focal findings Psych: appropriate affect Objective Data Active Medications Acetaminophen (Acetaminophen 325 Mg Tablet) 975 mg PO Q6H PRN PRN Reason: Pain, Mild 1-3,fever,headache Last Admin: 10/11/24 05:33 Dose: 975 mg Acetazolamide (Acetazolamide 250 Mg Tablet) 500 mg PO BID [facility] Last Admin: 10/17/24 09:11 Dose: 500 mg Documented By: CANDY Atorvastatin Calcium (Atorvastatin Calcium 80 Mg Tablet) 80 mg PO DAILY [facility] Last Admin: 10/17/24 09:11 Dose: 80 mg Documented By: CANDY Benzonatate (Benzonatate 100 Mg Capsule) 100 mg PO TID PRN PRN Reason: Cough Calcium Carbonate (Calcium Carbonate 750 Mg Tab.Chew) 750 mg PO Q4H PRN PRN Reason: Heartburn Clonazepam (Clonazepam 1 Mg Tablet) 1 mg PO DAILY [facility] Stop: 11/14/24 08:59 Last Admin: 10/17/24 09:11 Dose: 1 mg Documented By: CANDY Diltiazem HCl (Diltiazem Hcl Cd 240 Mg Cap.Er.Deg) 240 mg PO DAILY [facility]; Protocol Last Admin: 10/17/24 09:11 Dose: 240 mg Documented By: CANDY Doxycycline Monohydrate (Doxycycline Monohydrate 100 Mg Capsule) 100 mg PO Q12H [facility] Last Admin: 10/17/24 09:11 Dose: 100 mg Documented By: CANDY Enoxaparin Sodium (Enoxaparin Sodium 40 Mg/0.4 Ml Syringe) 40 mg SUBCUT Q12H [facility] Last Admin: 10/17/24 04:52 Dose: 40 mg Documented By: DAVE Ferrous Sulfate (Ferrous Sulfate 324 Mg Tablet.Dr) 324 mg PO DAILY [facility] Last Admin: 10/17/24 09:12 Dose: 324 mg Documented By: CANDY Fluticasone/Umeclidinium/Vilanterol (Fluticasone/Umeclidinium/Vilanterol 100/62.5/25 Blst.W.Dev) 1 puff INHALE RDAILY [facility] Last Admin: 10/17/24 07:48 Dose: 1 puff Documented By: WILVER Furosemide (Furosemide 20 Mg/2 Ml Vial) 20 mg IVPUSH BID@0900,1800 [facility]; Protocol Last Admin: 10/17/24 09:10 Dose: 20 mg Documented By: CANDY Guaifenesin (Guaifenesin La 600 Mg Tab.Er.12h) 600 mg PO BID [facility] Last Admin: 10/17/24 09:11 Dose: 600 mg Documented By: CANDY Guaifenesin/Dextromethorphan (Guaifenesin Dm 200/20/10 Ml 10 Ml Syrup) 10 ml PO Q6H PRN PRN Reason: Cough Hydromorphone HCl (Hydromorphone Hcl 0.5 Mg/0.5 Ml Syringe) 0.5 mg IVPUSH Q4H PRN; Protocol PRN Reason: Pain, Severe (Pain Scale 7-10) Last Admin: 10/17/24 04:52 Dose: 0.5 mg Documented By: DAVE Lactic Acid (Ammonium Lactate 12 % Lotion 226 Gm Bottle) 1 appl TOPICAL BID [facility]; Protocol Last Admin: 10/17/24 09:18 Dose: Not Given Documented By: CANDY Non-Admin Reason: Patient Refused Magnesium Hydroxide (Milk Of Magnesia 30 Ml Oral.Susp) 30 ml PO DAILY PRN PRN Reason: Constipation Melatonin (Melatonin 3 Mg Tablet) 6 mg PO BEDTIME PRN PRN Reason: Insomnia Nystatin (Nystatin Powder 15 Gm Bottle) 1 appl TOPICAL BID [facility]; Protocol Last Admin: 10/17/24 09:17 Dose: Not Given Documented By: CANDY Non-Admin Reason: Patient Refused Omeprazole (Omeprazole 20 Mg Capsule.) 20 mg PO DAILY@0630 [facility] Last Admin: 10/17/24 06:04 Dose: 20 mg Documented By: DAVE Ondansetron HCl (Ondansetron Hcl 4 Mg/2 Ml Vial) 4 mg IVPUSH Q8H PRN PRN Reason: Nausea and Vomiting Last Admin: 10/12/24 15:44 Dose: 4 mg Documented By: BETHANIE Oxycodone HCl (Oxycodone Hcl Immed Release 5 Mg Tablet) 20 mg PO 5XD [facility] Last Admin: 10/17/24 13:03 Dose: 20 mg Documented By: CANDY Polyethylene Glycol (Polyethylene Glycol 3350 17 Gm Powd.Pack) 17 gm PO DAILY PRN PRN Reason: Constipation Sodium Chloride (0.9 % Sodium Chloride Flush 3 Ml Syringe) 3 ml IVFLUSH QSHIFT [facility] Last Admin: 10/17/24 09:18 Dose: 3 ml Documented By: CANDY Theophylline (Theophylline Anhydrous Er 400 Mg Tab.Er.24h) 400 mg PO DAILY [facility] Last Admin: 10/17/24 09:12 Dose: 400 mg Documented By: CANDY Vitamin D (Cholecalciferol (Vitamin D3) 25 Mcg Tablet) 50 mcg PO DAILY [facility] Last Admin: 10/17/24 09:11 Dose: 50 mcg Documented By: CANDY Labs 10/17/24 10:39 10/17/24 10:39 Labs: Laboratory Results - last 24 hr 10/17/24 10/17/24 10:39 10:47 MCV 83.3 MCH 24.7 L MCHC 29.6 L RDW 16.4 H Plt Count 246 MPV 9.7 Absolute Nucleated RBC 0.000 Nucleated RBC % (auto) 0.0 VBG pH 7.31 L VBG pCO2 77 VBG pO2 57 VBG HCO3 40 H VBG O2 Saturation 82.0 VBG Base Excess 10.8 Anion Gap 14 Estim Creat Clear Calc 57.7 Estimated GFR 42 Random Glucose 365 H* Calcium 8.6 C-Reactive Protein 0.17 B-Natriuretic Peptide 81 Assessment and Plan (1) Influenza A: Status: Acute (2) Acute exacerbation of chronic obstructive pulmonary disease: Status: Acute Plan d10 for 64yo F with HFpEF, COPD, obesity, chronic osteomyelitis, chronic hypercarbic/hypoxic resp failure on home O2 + nighttime BiPAP recently admitted for R axillary abscess for which she underwent I+D and grew MSSA presenting with cough and dyspnea, admitted for sepsis due to cellulitis/abscess, acute/chronic respiratory failure with COPD exacerbation due to flu A acute/chronic respiratory failure with hypoxia/hypercapnea with acute COPD exacerbation to influenza A - continue BiPAP at sleep and with naps, continue oseltamivir 10/08-10/12, change methylprednisolone back to prednisone, standing/prn nebs, continue doxycycline 10/08-, Trelegy, theophylline - Pulm consulted; diuresed; also giving acetazolamide; recheck BMP/BNP/VBG in AM - has BiPAP at home; should have home titration study sepsis due to cellulitis/abscess R axilla - continue ampicillin-sulbactam 10/08-10/17, Surgery + Wound Care consulted: Cleanse and irrigate with NS, Pat dry.? Apply antifungal powder dust off excess followed by skin prep to seal in place, lightly pack with Durafiber AG, be sure to leave a wick to easy removal.? Cover with dry dressing.? Change daily while inpatient . Per Surgery US finding corresponds to residual induration, scar tissue, and serous fluid; no residual abscess on digital exploration - change to amox-clav 10/17- - BCx grew coag-neg Staph, a contaminant acute/chronic HFpEF - will change IV back to PO furosemide pAF - continue diltiazem; not on anticoagulation normocytic anemia - probably iron deficiency + chronic inflammation; replete Fe mood disorder - clonazepam VTE ppx - enoxaparin dispo - PT consulted; eventual home with VNA In my clinical judgment, the patient requires continued inpatient hospitalization for the following reasons: hypoxia/hypercarbia Total time managing care of this patient today: 35 minutes. Quality Stroke Does the patient have a stroke diagnosis?: No VTE Prior VTE?: No VTE Risk Level:: Medical - moderate - high VTE Device Contraindication: Treatment Not Indicated VTE Drug Contraindication: N/A - Med Ordered
[2024-10-17] MEDS: Furosemide 20 MG TABLET PO (17:15)
[2024-10-17] MEDS: Amoxicillin/Potassium Clav 875 MG TABLET PO (17:15)
[2024-10-17] MEDS: Ammonium Lactate 12 % Lotion 226 GM BOTTLE 1 APPL TOPICAL (20:11)
[2024-10-17] MEDS: Nystatin Powder 15 GM BOTTLE 1 APPL TOPICAL (20:14)
[2024-10-18] VITALS (9 sets, daily range): BP systolic 145–183; BP diastolic 67–90; PULSE 55–98; RESP 18–20; TEMP 36.5–37.1; O2SAT 84–98
[2024-10-18] MEDS: HYDROmorphone HCl 0.5 MG/0.5 ML SYRINGE IVPUSH ×2 (02:13→08:18)
--- NOTE | 2024-10-18 03:11 | PC.RT ---
Pt taken off Bipap per pt request for a Break @0100; pt refusing to place Bipap back on presently. RT will attempt to place pt back on Bipap at 0400. RN aware
[2024-10-18 06:19] LABS: Venous Blood Gas Refer to POC result
[2024-10-18 06:23] LABS: VBG Base Excess 15.6 mmol/L; VBG HCO3 43 mmol/L (22-26); VBG pCO2 75 mmHg; VBG pH 7.37 (7.32-7.43); VBG pO2 57 mmHg
[2024-10-18] MEDS: Omeprazole 20 MG CAPSULE.DR PO (06:25)
[2024-10-18] MEDS: Amoxicillin/Potassium Clav 875 MG TABLET PO ×2 (06:25→17:15)
[2024-10-18] MEDS: oxyCODONE HCl Immed Release 5 MG TABLET 20 MG PO ×5 (06:25→21:25)
[2024-10-18] MEDS: Enoxaparin Sodium 40 MG/0.4 ML SYRINGE SUBCUT ×2 (06:26→17:15)
[2024-10-18 06:56] LABS: Anion Gap 11 (12-20); Blood Urea Nitrogen 44 mg/dL (9-16); Calcium 8.4 mg/dL (8.4-10.2); Carbon Dioxide 37 mmol/L (22-29); Chloride 101 mmol/L (96-108); Creatinine Clr Calc Pharmacy 60.1; Estimated Glomerular Filt Rate 44; Glucose Random 224 mg/dL (60-115); Potassium 3.5 mmol/L (3.3-5.1); Sodium 145 mmol/L (135-145)
[2024-10-18] MEDS: guaiFENesin LA 600 MG TAB.ER.12H PO ×2 (08:15→21:25)
[2024-10-18] MEDS: dilTIAZem HCL CD 240 MG CAP.ER.DEG PO (08:15)
[2024-10-18] MEDS: Furosemide 20 MG TABLET PO ×2 (08:16→17:15)
[2024-10-18] MEDS: Doxycycline Monohydrate 100 MG CAPSULE PO ×2 (08:16→21:25)
[2024-10-18] MEDS: Theophylline Anhydrous ER 400 MG TAB.ER.24H PO (08:16)
[2024-10-18] MEDS: Cholecalciferol (Vitamin D3) 25 MCG TABLET 50 MCG PO (08:16)
[2024-10-18] MEDS: Ferrous Sulfate 324 MG TABLET.DR PO (08:16)
[2024-10-18] MEDS: clonazePAM 1 MG TABLET PO (08:16)
[2024-10-18] MEDS: Atorvastatin Calcium 80 MG TABLET PO (08:16)
[2024-10-18] MEDS: acetaZOLAMIDE 250 MG TABLET 500 MG PO (08:16)
[2024-10-18] MEDS: predniSONE 20 MG TABLET 40 MG PO (08:16)
[2024-10-18] MEDS: Nystatin Powder 15 GM BOTTLE 1 APPL TOPICAL ×2 (08:17→21:27)
[2024-10-18] MEDS: Ammonium Lactate 12 % Lotion 226 GM BOTTLE 1 APPL TOPICAL (08:17)
[2024-10-18] MEDS: 0.9 % Sodium Chloride Flush 3 ML SYRINGE IVFLUSH ×3 (08:21→21:31)
--- NOTE | 2024-10-18 11:16 | HO.PM.IMPN ---
Subjective Subjective Date of Service: 10/18/24 Interval History: breathing improved Review of Systems Review of Systems: Yes all other systems are reviewed and are negative Physical Exam Vital Signs: Vital Signs: Last Vital Signs Temp 98.3 F 10/18/24 07:17 Pulse 55 10/18/24 08:15 Resp 20 10/18/24 07:17 BP 145/71 H 10/18/24 08:16 Pulse Ox 96 10/18/24 07:17 O2 Del Method BiPAP 10/18/24 07:17 O2 Flow Rate 3 10/17/24 19:30 FiO2 30 10/17/24 11:59 Oxygen Flow Rate 9 10/08/24 02:39 BMI result Body Mass Index 54.9 Gen: NAD HEENT: sclera anicteric, moist mucus membranes Neck: supple Lungs: diminished Heart: regular rate and rhythm, no murmurs Abd: soft, non-tender, non-distended, obese Ext: bilateral leg edema Skin: warm/well-perfused, R axila with drained abscess and minimal surrounding erythema + induration Neuro: alert and oriented x3, no focal findings Psych: appropriate affect Objective Data Active Medications Acetaminophen (Acetaminophen 325 Mg Tablet) 975 mg PO Q6H PRN PRN Reason: Pain, Mild 1-3,fever,headache Last Admin: 10/11/24 05:33 Dose: 975 mg Acetazolamide (Acetazolamide 250 Mg Tablet) 500 mg PO BID [facility] Last Admin: 10/18/24 08:16 Dose: 500 mg Documented By: LUTHER Amoxicillin/Clavulanate Potassium (Amoxicillin/Potassium Clav 875 Mg Tablet) 875 mg PO Q12H [facility] Last Admin: 10/18/24 06:25 Dose: 875 mg Documented By: UMU Atorvastatin Calcium (Atorvastatin Calcium 80 Mg Tablet) 80 mg PO DAILY [facility] Last Admin: 10/18/24 08:16 Dose: 80 mg Documented By: LUTHER Benzonatate (Benzonatate 100 Mg Capsule) 100 mg PO TID PRN PRN Reason: Cough Calcium Carbonate (Calcium Carbonate 750 Mg Tab.Chew) 750 mg PO Q4H PRN PRN Reason: Heartburn Clonazepam (Clonazepam 1 Mg Tablet) 1 mg PO DAILY [facility] Stop: 11/14/24 08:59 Last Admin: 10/18/24 08:16 Dose: 1 mg Documented By: LUTHER Diltiazem HCl (Diltiazem Hcl Cd 240 Mg Cap.Er.Deg) 240 mg PO DAILY [facility]; Protocol Last Admin: 10/18/24 08:15 Dose: 240 mg Documented By: LUTHER Doxycycline Monohydrate (Doxycycline Monohydrate 100 Mg Capsule) 100 mg PO Q12H [facility] Last Admin: 10/18/24 08:16 Dose: 100 mg Documented By: LUTHER Enoxaparin Sodium (Enoxaparin Sodium 40 Mg/0.4 Ml Syringe) 40 mg SUBCUT Q12H [facility] Last Admin: 10/18/24 06:26 Dose: 40 mg Documented By: UMU Ferrous Sulfate (Ferrous Sulfate 324 Mg Tablet.Dr) 324 mg PO DAILY [facility] Last Admin: 10/18/24 08:16 Dose: 324 mg Documented By: LUTHER Fluticasone/Umeclidinium/Vilanterol (Fluticasone/Umeclidinium/Vilanterol 100/62.5/25 Blst.W.Dev) 1 puff INHALE RDAILY [facility] Last Admin: 10/18/24 08:18 Dose: Not Given Documented By: RANDEE Non-Admin Reason: Patient Refused Furosemide (Furosemide 20 Mg Tablet) 20 mg PO BID@0900,1800 [facility]; Protocol Last Admin: 10/18/24 08:16 Dose: 20 mg Documented By: LUTHER Guaifenesin (Guaifenesin La 600 Mg Tab.Er.12h) 600 mg PO BID [facility] Last Admin: 10/18/24 08:15 Dose: 600 mg Documented By: LUTHER Guaifenesin/Dextromethorphan (Guaifenesin Dm 200/20/10 Ml 10 Ml Syrup) 10 ml PO Q6H PRN PRN Reason: Cough Hydromorphone HCl (Hydromorphone Hcl 0.5 Mg/0.5 Ml Syringe) 0.5 mg IVPUSH Q4H PRN; Protocol PRN Reason: Pain, Severe (Pain Scale 7-10) Last Admin: 10/18/24 08:18 Dose: 0.5 mg Documented By: LUTHER Lactic Acid (Ammonium Lactate 12 % Lotion 226 Gm Bottle) 1 appl TOPICAL BID [facility]; Protocol Last Admin: 10/18/24 08:17 Dose: 1 appl Documented By: LUTHER Magnesium Hydroxide (Milk Of Magnesia 30 Ml Oral.Susp) 30 ml PO DAILY PRN PRN Reason: Constipation Melatonin (Melatonin 3 Mg Tablet) 6 mg PO BEDTIME PRN PRN Reason: Insomnia Nystatin (Nystatin Powder 15 Gm Bottle) 1 appl TOPICAL BID [facility]; Protocol Last Admin: 10/18/24 08:17 Dose: 1 appl Documented By: LUTHER Omeprazole (Omeprazole 20 Mg Capsule.Dr) 20 mg PO DAILY@0630 [facility] Last Admin: 10/18/24 06:25 Dose: 20 mg Documented By: UMU Ondansetron HCl (Ondansetron Hcl 4 Mg/2 Ml Vial) 4 mg IVPUSH Q8H PRN PRN Reason: Nausea and Vomiting Last Admin: 10/12/24 15:44 Dose: 4 mg Documented By: BETHANIE Oxycodone HCl (Oxycodone Hcl Immed Release 5 Mg Tablet) 20 mg PO 5XD [facility] Last Admin: 10/18/24 10:42 Dose: 20 mg Documented By: LUTHER Polyethylene Glycol (Polyethylene Glycol 3350 17 Gm Powd.Pack) 17 gm PO DAILY PRN PRN Reason: Constipation Prednisone (Prednisone 20 Mg Tablet) 40 mg PO DAILY [facility] Last Admin: 10/18/24 08:16 Dose: 40 mg Documented By: LUTHER Sodium Chloride (0.9 % Sodium Chloride Flush 3 Ml Syringe) 3 ml IVFLUSH QSHIFT [facility] Last Admin: 10/18/24 08:21 Dose: 3 ml Documented By: LUTHER Theophylline (Theophylline Anhydrous Er 400 Mg Tab.Er.24h) 400 mg PO DAILY [facility] Last Admin: 10/18/24 08:16 Dose: 400 mg Documented By: LUTHER Vitamin D (Cholecalciferol (Vitamin D3) 25 Mcg Tablet) 50 mcg PO DAILY [facility] Last Admin: 10/18/24 08:16 Dose: 50 mcg Documented By: LUTHER Labs 10/17/24 10:39 10/18/24 06:14 Labs: Laboratory Results - last 24 hr 10/17/24 10/18/24 10/18/24 10:39 06:13 06:14 Hold Purple Top SEE NOTE VBG pH VBG pCO2 VBG pO2 VBG HCO3 VBG O2 Saturation VBG Base Excess Anion Gap 14 11 L Estim Creat Clear Calc 57.7 60.1 Estimated GFR 42 44 Random Glucose 365 H* 224 H Calcium 8.6 8.4 C-Reactive Protein 0.17 B-Natriuretic Peptide 81 10/18/24 06:19 Hold Purple Top VBG pH 7.37 VBG pCO2 75 VBG pO2 57 VBG HCO3 43 H VBG O2 Saturation Not Reportable VBG Base Excess 15.6 Anion Gap Estim Creat Clear Calc Estimated GFR Random Glucose Calcium C-Reactive Protein B-Natriuretic Peptide Assessment and Plan (1) Influenza A: Status: Acute (2) Acute exacerbation of chronic obstructive pulmonary disease: Status: Acute Plan d11 for 64yo F with HFpEF, COPD, obesity, chronic osteomyelitis, chronic hypercarbic/hypoxic resp failure on home O2 + nighttime BiPAP recently admitted for R axillary abscess for which she underwent I+D and grew MSSA presenting with cough and dyspnea, admitted for sepsis due to cellulitis/abscess, acute/chronic respiratory failure with COPD exacerbation due to flu A acute/chronic respiratory failure with hypoxia/hypercapnea with acute COPD exacerbation to influenza A - imrpoved with BiPAP at sleep and with naps, continue oseltamivir 10/08-10/12, change methylprednisolone back to prednisone, standing/prn nebs, continue doxycycline 10/08-, Trelegy, theophylline - Pulm consulted; diuresed; will d/c acetazolamide - Pt has chronic respiratory failure due to COPD. We have discussed the need for Astral NIV with Brianne Chaudhary, who suffers from CRF due to COPD. Due to this severe and life-threatening disease state, the Astral is being prescribed today to avoid longer hospital stays and possible readmissions. sepsis due to cellulitis/abscess R axilla - continue ampicillin-sulbactam 10/08-10/17, Surgery + Wound Care consulted: Cleanse and irrigate with NS, Pat dry.? Apply antifungal powder dust off excess followed by skin prep to seal in place, lightly pack with Durafiber AG, be sure to leave a wick to easy removal.? Cover with dry dressing.? Change daily while inpatient . Per Surgery US finding corresponds to residual induration, scar tissue, and serous fluid; no residual abscess on digital exploration - change to amox-clav 10/17-10/22 - BCx grew coag-neg Staph, a contaminant acute/chronic HFpEF - changed IV back to PO furosemide pAF - continue diltiazem; not on anticoagulation normocytic anemia - probably iron deficiency + chronic inflammation; replete Fe mood disorder - clonazepam VTE ppx - enoxaparin dispo - PT consulted; eventual home with VNA In my clinical judgment, the patient requires continued inpatient hospitalization for the following reasons: hypoxia/hypercarbia; arranging VNA services + Astral NIV Total time managing care of this patient today: 45 minutes. Quality Stroke Does the patient have a stroke diagnosis?: No VTE Prior VTE?: No VTE Risk Level:: Medical - moderate - high VTE Device Contraindication: Treatment Not Indicated VTE Drug Contraindication: N/A - Med Ordered
--- NOTE | 2024-10-18 16:04 | HO.WOUND ---
Wound Consult: Follow up 64yr old?female admitted to [facility] [place] on 10/08/24 - See progress notes and H&P for detailed history.? Wound consult follow up for Right Axilla.? Patient agreeable to assessment and photo documentation. Buttock not assessed today. Right Axilla Etiology: I & D site Measurements: 1cm x 3cm x 3cm Wound Bed: pink moist wound bed some slough noted Drainage / Odor: thin nava yellow drainage drainage - no odor Edges: ? well defined Jossie wound: Improved Fungal Dermatitis and MASD - decrease in size of palpable mass noted Pain: tenderness noted Goals of Treatment: ? Durafiber packing for moisture management Recommendations: 1. Turn and Reposition every 2 hours and as needed for patient comfort.? Use pillows or wedges to support off loading positions. 2. Off Load all bony prominences with use of pillows and heel boots if needed.? Apply Preventative foams where needed. ? 3. Monitor for incontinence and moisture control, use barrier creams when needed for prevention and treatment. 4. Provide adequate and supplemental nutrition.? 5. Continue low air loss mattress. 6. When applicable maintain blood glucose levels per Providers order. 7. Perineal Area and buttock - Off Load Pressure with Q2 hr turns and use of pillows - Cleanse with PH balance spray or wipes, pat dry. ?Apply thin layer of barrier cream to affected area.? Apply twice daily and Reapply thin layer PRN after each episode of incontinence. 8. Bridge of nose - Apply skin prep be sure to avoid eyes. Allow to dry. Cover bridge of nose with Mepilex Lite when BiPAP is in use. 9. Right Axilla - Cleanse and irrigate with NS, Pat dry.? Apply antifungal powder dust off excess followed by skin prep to seal in place, lightly pack with Durafiber AG, be sure to leave a wick to easy removal.? Cover with dry dressing.? Change every 2-3 days. Re-consult wound care Nurse for wound deterioration or wound changes.
[2024-10-19] VITALS: BP 150/82; PULSE 57; RESP 12; TEMP 37.1; O2SAT 97
[2024-10-19 00:02] VITALS: PULSE 61; RESP 20; O2SAT 98
[2024-10-19 02:54] VITALS: BP 160/97; PULSE 68; RESP 18; TEMP 36.3; O2SAT 94
[2024-10-19] MEDS: Amoxicillin/Potassium Clav 875 MG TABLET PO (04:41)
[2024-10-19] MEDS: Enoxaparin Sodium 40 MG/0.4 ML SYRINGE SUBCUT (04:41)
[2024-10-19] MEDS: Omeprazole 20 MG CAPSULE.DR PO (04:41)
[2024-10-19] MEDS: oxyCODONE HCl Immed Release 5 MG TABLET 20 MG PO ×2 (04:41→09:10)
[2024-10-19 07:52] VITALS: BP 120/61; PULSE 55; RESP 19; TEMP 36.5; O2SAT 99
[2024-10-19 09:09] VITALS: BP 120/61; PULSE 55
[2024-10-19] MEDS: Theophylline Anhydrous ER 400 MG TAB.ER.24H PO (09:09)
[2024-10-19] MEDS: 0.9 % Sodium Chloride Flush 3 ML SYRINGE IVFLUSH (09:09)
[2024-10-19] MEDS: guaiFENesin LA 600 MG TAB.ER.12H PO (09:09)
[2024-10-19] MEDS: predniSONE 20 MG TABLET 40 MG PO (09:09)
[2024-10-19] MEDS: dilTIAZem HCL CD 240 MG CAP.ER.DEG PO (09:09)
[2024-10-19] MEDS: clonazePAM 1 MG TABLET PO (09:09)
[2024-10-19] MEDS: Doxycycline Monohydrate 100 MG CAPSULE PO (09:09)
[2024-10-19] MEDS: Furosemide 20 MG TABLET PO (09:09)
[2024-10-19] MEDS: Cholecalciferol (Vitamin D3) 25 MCG TABLET 50 MCG PO (09:09)
[2024-10-19] MEDS: Atorvastatin Calcium 80 MG TABLET PO (09:09)
[2024-10-19] MEDS: Ferrous Sulfate 324 MG TABLET.DR PO (09:09)
[2024-10-19] MEDS: Ammonium Lactate 12 % Lotion 226 GM BOTTLE 1 APPL TOPICAL (09:16)
[2024-10-19] MEDS: Nystatin Powder 15 GM BOTTLE 1 APPL TOPICAL (09:17)
--- NOTE | 2024-10-19 10:34 | MHC.CM.PN ---
Second IMM 10/19/24, Pt has been medically cleared for DC, she will go home via private transport and have home care services from [facility] and [employer] for O2 supplies.
--- NOTE | 2024-10-19 10:45 | P.F2F_ITS ---
Service Date Service Date: 10/19/24 Encounter Date of encounter: 10/19/24 Reasons for Services Signs and symptoms assessed: attach PT evaluations 10/12-10/18 Reason for senior care: medication management, medication treatment and teach disease management Reason for physical therapy: home safety and mobility, therapeutic exercises, gait/transfer training, assess need for DME, ADL training and energy conservation MD Overseeing Care: Sandra Diego Homebound: Leaving the home is medically contraindicated at this time without the asist of a device and/or another person due th the listed conditions above and below. Reason homebound: unsteady gait / fall risk, shortness of breath with minimal effort and weakness related to hospital stay Certification: Based on the above findings, I certify that this patient is confined to the home and needs intermittent senior care care, physical therapy and/or speech therapy, or continues to need occupational therapy. The patient is under my care, and I have initiated the establishment of the plan of care. The patient will be followed by a physician who will periodically review the plan of care. Time Spent With Patient Time: Total time managing care of this patient today ____ minutes.
--- NOTE | 2024-10-19 11:00 | P.DS_ITS ---
DS: Providers Provider Date of Service: 10/19/24 Date of admission: 10/08/24 05:00 Date of discharge: 10/19/24 Primary care physician: Sandra Diego MD Consults: 10/08/24 05:00 Consult to General Surgery Routine Consulting Provider: [facility] General Surgeons Reason for consultation: R axillary abscess still with copious drainage Has provider been notified: No 10/08/24 05:29 Consult to Wound Care Routine Reason for consultation: f/u sacral wound, R axillary abscess Has provider been notified: No 10/09/24 08:33 Consult to Wound Care Routine Reason for consultation: axillarya bscess R 10/12/24 07:54 Consult to Pulmonology Routine Consulting Provider: [facility] Pulmonology Services Reason for consultation: respiratory acidosis, on BiPAP DS: Diagnosis Discharge Diagnosis (1) Influenza A: Status: Acute (2) Acute exacerbation of chronic obstructive pulmonary disease: Status: Acute (3) Status post incision and drainage: Status: Acute (4) Acute on chronic heart failure with preserved ejection fraction (HFpEF): Status: Acute (5) Hypoventilation associated with obesity: Status: Acute (6) BMI 50.0-59.9, adult: Status: Acute (7) Anemia: Status: Acute (8) Sepsis: Status: Acute (9) Cellulitis and abscess of upper extremity: Status: Acute DS: Summary Hospital Course Hospital Course: From the history and physical by the admitting hospitalist, MONTSE Wong, 10/08/24: Pt is a 64-year-old female past medical history significant for COPD, chronic respiratory failure on 4-6 L O2, BiPAP at night, paroxysmal AFib (no anticoagulant), obesity, with a recent admission due to acute hypercarbic respiratory failure from oxygen induced hypercapnia with ICU stay and axillary abscess, who presented to the ED due to shortness of breath, cough with yellow sputum, wheezing, fever starting around 15:00 yesterday. She reports that she was not feeling well in the morning and could tell that she was coming down with an illness and once her daughter came home from work around 22:30 she noticed that she was extra short of breath and brought her to the emergency department. The patient reports that she has been seeing wound care since her discharge recently and has been taking her antibiotics as prescribed but has had copious amount of purulent drainage from her right axillary abscess. She denies any increased pain in the right axilla. 64yo F with HFpEF, COPD, obesity, chronic osteomyelitis, and chronic hypercarbic/hypoxic resp failure on home O2 + nighttime BiPAP who was recently admitted here for R axillary abscess for which she underwent I+D and grew MSSA. This time, she presented with cough and dyspnea and was admitted for sepsis due to cellulitis/abscess, as well as acute/chronic respiratory failure with COPD exacerbation due to flu A. Hospital course by problem: acute/chronic respiratory failure with hypoxia/hypercapnea with acute COPD exacerbation to influenza A - Admitted to the telemetry unit and treated with BiPAP at sleep and with naps. Competed 5-day course of oseltamivir. Given methylprednisolone and transitioned to prednisone tapers. Also completed 10 days of doxycycline. She was set up with an Astral non-invasive ventilator upon discharge. sepsis due to cellulitis/abscess R axilla - Treated with ampicillin-sulbactam 10/08-10/17, then changed to amoxicillin- clavulanate to end 10/22. No residual abscess on digital examination by surgeon. Wound Care consulted and recommended: Cleanse and irrigate with NS, Pat dry.? Apply antifungal powder dust off excess followed by skin prep to seal in place, lightly pack with Durafiber AG, be sure to leave a wick to easy removal.? Cover with dry dressing.? Change daily while inpatient . Blood cultures negative. acute/chronic HFpEF - Diuresed with IV furosemide and changed back to PO furosemide. Also received a few doses of acetazolamide but this medication was not continued. normocytic anemia - Due to iron deficiency + chronic inflammation; started on PO iron repletion. She was discharged home with VNA services/home PT. Time Attestation Discharge Coordination Time (in mins): 45 Quality: Safe Use of Opioids Does Pt have an Active Cancer Diagnosis on the Problem List?: No Quality: Stroke Does the patient have a stroke diagnosis?: No Physical Exam Vital Signs: Vital Signs: Last Vital Signs Temp 97.7 F 10/19/24 07:52 Pulse 55 10/19/24 09:09 Resp 19 10/19/24 07:52 BP 120/61 10/19/24 09:09 Pulse Ox 99 10/19/24 07:52 O2 Del Method Room Air 10/19/24 07:52 O2 Flow Rate 3 10/19/24 00:00 FiO2 30 10/17/24 11:59 Oxygen Flow Rate 9 10/08/24 02:39 BMI result Body Mass Index 54.9 Gen: NAD HEENT: sclera anicteric, moist mucus membranes Neck: supple Lungs: diminished Heart: regular rate and rhythm, no murmurs Abd: soft, non-tender, non-distended, obese Ext: bilateral leg edema Skin: warm/well-perfused, R axila with drained abscess and no surrounding erythema + induration Neuro: alert and oriented x3, no focal findings Psych: appropriate affect DS: Data Data Completed and Pending Completed studies during hospitalization [Text1]: Laboratory Results WBC 13.8 X10*3/uL (4.8-10.8) H 10/17/24 10:39 RBC 4.38 X10*6/uL (4.20-5.50) 10/17/24 10:39 Hgb 10.8 g/dl (12.0-16.0) L 10/17/24 10:39 Hct 36.5 % (37.0-47.0) L 10/17/24 10:39 MCV 83.3 fL (80.0-98.0) 10/17/24 10:39 MCH 24.7 pg (27.0-33.0) L 10/17/24 10:39 MCHC 29.6 g/dl (31.0-35.0) L 10/17/24 10:39 RDW 16.4 % (11.0-16.0) H 10/17/24 10:39 Plt Count 246 X10*3/uL (160-400) 10/17/24 10:39 MPV 9.7 fL (9.4-12.3) 10/17/24 10:39 Immature Gran % (Auto) 2.5 % (0.0-0.4) H 10/15/24 06:51 Neut % (Auto) 93.9 % (45-73) H 10/15/24 06:51 Lymph % (Auto) 2.5 % (20-40) L 10/15/24 06:51 O'Brien % (Auto) 1.0 % (2-11) L 10/15/24 06:51 Eos % (Auto) 0.0 % (0-4) 10/15/24 06:51 Baso % (Auto) 0.1 % (0-2) 10/15/24 06:51 Lymph # (Auto) 0.4 X10*3/uL (1.2-4.9) L 10/15/24 06:51 O'Brien # (Auto) 0.1 X10*3/uL (0.1-1.2) 10/15/24 06:51 Eos # (Auto) 0.0 X10*3/uL (0.0-0.4) 10/15/24 06:51 Baso # (Auto) 0.0 X10*3/uL (0.0-0.2) 10/15/24 06:51 Abs Immat Gran (auto) 0.35 X10*3/uL (0.00-0.03) H 10/15/24 06:51 Absolute Neuts (auto) 13.0 x10*3/uL (2.0-8.3) H 10/15/24 06:51 Absolute Nucleated RBC 0.000 X10*3/uL (0.0-0.012) 10/17/24 10:39 Nucleated RBC % (auto) 0.0 /100WBC (0.0-0.2) 10/17/24 10:39 Smear Tech's Comments VERIFIED 10/15/24 06:51 Absolute Retic 0.058 X10*6/uL (0.026-0.095) 10/09/24 06:49 Percent Retic 1.8 % (0.5-1.8) 10/09/24 06:49 Immature Retic Fraction 11.8 % (3.0-15.9) 10/09/24 06:49 Retic Hgb Equivalent 21.9 pg (30.0-35.0) L 10/09/24 06:49 Hold Purple Top SEE NOTE 10/18/24 06:13 PT 11.8 SEC (10.9-12.4) 10/08/24 02:32 INR 1.0 (0.9-1.1) 10/08/24 02:32 VBG pH 7.37 (7.32-7.43) 10/18/24 06:19 VBG pCO2 75 mmHg 10/18/24 06:19 VBG pO2 57 mmHg 10/18/24 06:19 VBG HCO3 43 mmol/L (22-26) H 10/18/24 06:19 VBG O2 Saturation Not Reportable 10/18/24 06:19 VBG Base Excess 15.6 mmol/L 10/18/24 06:19 Sodium 145 mmol/L (135-145) 10/18/24 06:14 Potassium 3.5 mmol/L (3.3-5.1) 10/18/24 06:14 Chloride 101 mmol/L (96-108) 10/18/24 06:14 Carbon Dioxide 37 mmol/L (22-29) H 10/18/24 06:14 Anion Gap 11 (12-20) L 10/18/24 06:14 BUN 44 mg/dL (9-16) H 10/18/24 06:14 Creatinine 1.23 mg/dL (0.5-1.4) 10/18/24 06:14 Estim Creat Clear Calc 60.1 10/18/24 06:14 Estimated GFR 44 10/18/24 06:14 Random Glucose 224 mg/dL (60-115) H 10/18/24 06:14 Fasting Glucose 276 mg/dL (60-99) H 10/15/24 06:51 Lactic Acid 0.6 mmol/L (0.5-2.0) 10/08/24 02:31 Calcium 8.4 mg/dL (8.4-10.2) 10/18/24 06:14 Magnesium 2.2 mg/dL (1.6-2.6) 10/13/24 06:36 Iron 24 mcg/dL (30-160) L 10/09/24 06:49 TIBC 229 mcg/dL (228-428) 10/09/24 06:49 % Saturation 10 % (15-50) L 10/09/24 06:49 Unsat Iron Binding 205 ug/dL 10/09/24 06:49 Ferritin 90 ng/mL (10-250) 10/09/24 06:49 Total Bilirubin 0.3 mg/dL (0.0-1.0) 10/15/24 06:51 AST 11 U/L (5-31) 10/15/24 06:51 ALT 11 U/L (0-31) 10/15/24 06:51 Alkaline Phosphatase 98 U/L (39-117) 10/15/24 06:51 Lactate Dehydrogenase 268 U/L (122-220) H 10/09/24 06:49 Troponin I High Sens 5.9 ng/L (<3.5-17.0) D 10/08/24 02:32 C-Reactive Protein 0.17 mg/dL (< or = 0.50) 10/17/24 10:39 B-Natriuretic Peptide 81 pg/mL (<100) 10/17/24 10:39 Total Protein 7.6 g/dL (6.5-8.0) 10/15/24 06:51 Albumin 3.9 g/dL (3.5-5.0) 10/15/24 06:51 Vitamin B12 406 pg/mL (200-900) 10/10/24 06:58 Folate 4.1 ng/mL (> or = 4.0) 10/10/24 06:58 Urine Color Yellow 10/10/24 18:35 Urine Appearance Hazy 10/10/24 18:35 Urine pH 6.0 (5.0-9.0) 10/10/24 18:35 Ur Specific Storden 1.025 (1.005-1.025) 10/10/24 18:35 Urine Protein 30 (1+) mg/dL (Neg-Trace) H 10/10/24 18:35 Urine Glucose (UA) Negative mg/dL (Negative) 10/10/24 18:35 Urine Ketones Negative mg/dL (Negative) 10/10/24 18:35 Urine Blood Negative (Negative) 10/10/24 18:35 Urine Nitrite Negative (Negative) 10/10/24 18:35 Ur Leukocyte Esterase Negative (Negative) 10/10/24 18:35 Urine RBC 3-5 /HPF (0-2) H 10/10/24 18:35 Urine WBC 6-10 /HPF (0-5) H 10/10/24 18:35 Ur Squamous Epith Cells 11-20 /HPF (0-2) 10/10/24 18:35 Urine Bacteria None Seen (None Seen) 10/10/24 18:35 Hyaline Casts 11-20 /LPF (0-2) 10/10/24 18:35 Stool Occult Blood NEGATIVE (NEGATIVE) 10/10/24 13:40 Influenza Type A (PCR) POSITIVE (Negative) A 10/08/24 02:32 Influenza Type B (PCR) NEGATIVE (Negative) 10/08/24 02:32 RSV RNA Qual (PCR) NEGATIVE (Negative) 10/08/24 02:32 SARS-CoV-2 RNA (RT-PCR) NEGATIVE (Negative) 10/08/24 02:32 Blood Type O Negative 10/11/24 07:21 Antibody Screen NEGATIVE 10/11/24 07:21 Impressions Extremity Ultrasound 10/10/24 16:46 IMPRESSION: Irregularly shaped 5.0 x 2.0 x 1.7 cm fluid collection in the right axilla consistent with residual/recurrent abscess. Echogenic material may represent packing material. Electronically signed by: Brady Blanca MD 10/11/2024 07:22 AM EDT RP Chest X-Ray 10/12/24 08:30 IMPRESSION: Cardiomegaly versus pericardial effusion and mild pulmonary edema. Overall stable to slightly improved. Probable left-sided pleural effusion, small to moderate volume. Electronically signed by: Anjel Strickland MD 10/12/2024 08:48 AM EDT RP Discharge Plan Discharge Anticipated Discharge Date/Time: 10/19/24 10:52 Patient Disposition: Home Health Service Discharge Diagnosis: acute/chronic respiratory failure with hypoxia/hypercapnea with acute COPD exacerbation to influenza A sepsis due to cellulitis/abscess R axilla acute/chronic HFpEF normocytic anemia Referrals: Sandra Diego MD [Primary Care Provider] - 1 Week Jersey Grewal MD [Physician] - 1 Week Nataliya Dash MD [Physician] - 1 Week (Right Axilla - Cleanse and irrigate with NS, Pat dry.? Apply antifungal powder dust off excess followed by skin prep to seal in place, lightly pack with Durafiber AG, be sure to leave a wick to easy removal.? Cover with dry dressing.? Change every other day. ) Discharge Medications: New amoxicillin-pot clavulanate 875-125 mg Tablet 1 tab PO Q12H Qty: 6 0RF ferrous sulfate 324 mg (65 mg iron) Tablet,Delayed Release (Dr/Ec) 324 mg PO DAILY Qty: 30 0RF prednisone 10 mg tablet See Rx Instructions .ROUTE .COMPLEX Qty: 12 0RF Rx Instructions: 30 mg daily x 2 days, then 20 mg daily x 2 days, then 10 mg daily x 2 days Continued diltiazem HCl 240 mg capsule,extended release 24 hr 240 mg PO DAILY Qty: 90 0RF furosemide [Lasix] 20 mg tablet 20 mg PO BID Qty: 60 0RF Roque-24 400 mg capsule,extended release 24hr 400 mg PO DAILY Qty: 30 0RF clonazepam 0.5 mg Tablet 0.5 mg PO BID PRN (Reason: Anxiety) temazepam 30 mg Capsule 30 mg PO BEDTIME PRN (Reason: Sleep) cholecalciferol (vitamin D3) 50 mcg (2,000 unit) Tablet 50 mcg PO DAILY omeprazole 20 mg tablet,delayed release (DR/EC) 20 mg PO DAILY@0630 clonazepam 1 mg Tablet 1 mg PO DAILY acetaminophen 500 mg Tablet 1,000 mg PO TID PRN (Reason: Pain) oxycodone 5 mg tablet 20 mg PO 5XD Rx Instructions: Partial Fill upon patient request. nystatin 100,000 unit/gram Powder 1 appl topical BID Qty: 30 0RF Protocol: Apply to: Apply to: sacral wound Rx Instructions: pt has completed 2 days of 7 day course Trelegy Ellipta 100-62.5-25 mcg blister with device 1 ea INHALATION DAILY atorvastatin 80 mg tablet 80 mg PO DAILY Discontinued doxycycline monohydrate 100 mg capsule 100 mg PO BID Qty: 14 0RF Rx Instructions: pt has completed 2 days of 7 day course amoxicillin-pot clavulanate 875-125 mg tablet 1 tab PO BID Qty: 14 0RF Rx Instructions: pt has completed 2 days of 7 day course Discharge Orders: Discharge Order (Routine); Ordered 10/19/24 Ordered By: Naresh Solorzano Diet: Low salt diet Activity on Discharge: As tolerated Stand Alone Forms: Patient Portal Discharge page Print Language: Bulgarian Care Plan Goals: respiratory health Health Concerns: acute/chronic respiratory failure with hypoxia/hypercapnea with acute COPD exacerbation to influenza A sepsis due to cellulitis/abscess R axilla acute/chronic HFpEF normocytic anemia Plan of Treatment: prednisone taper: 30 mg daily x 2 days, then 20 mg daily x 2 days, then 10 mg daily x 2 days use Astral non-invasive ventilator at bedtime and for all naps follow up with your booster pump operator in 1 week take amoxicillin-clavaulanate 875-125 mg twice daily for 3 more days continue furosemide Low-sodium diet: less than 2000 mg of sodium daily. Weigh yourself daily and call your doctor if your weight goes up by more than 3 lb/day or 5 lb/week. take iron as prescribed Please follow up with your primary care doctor within 1 week. Return to the hospital if you experience recurrent or worsening symptom Assessment: See Discharge Summary.
== END 2024-10-19 11:59 | disposition home health service (06) | DRG 871 ==
LOC: HO.ED 03:32 → HO.EDOVER 05:39 → HO.IMC 07:54
PROVIDERS: Hospitalist; Internal Medicine; Admitting Provider Physician Assistant; Emergency Provider Internal Medicine; PCP Internal Medicine; Visit Provider Family Medicine
DX: A41.9 Sepsis, unspecified organism (principal); I50.33 Acute on chronic diastolic (congestive) heart failure; J96.21 Acute and chronic respiratory failure with hypoxia; J96.22 Acute and chronic respiratory failure with hypercapnia; L02.411 Cutaneous abscess of right axilla; J44.1 Chronic obstructive pulmonary disease with (acute) exacerbation; E87.4 Mixed disorder of acid-base balance; Z68.43 Body mass index [BMI] 50.0-59.9, adult; E66.2 Morbid (severe) obesity with alveolar hypoventilation; L03.111 Cellulitis of right axilla; I48.0 Paroxysmal atrial fibrillation; F39 Unspecified mood [affective] disorder; D50.9 Iron deficiency anemia, unspecified; J10.1 Influenza due to other identified influenza virus with other respiratory manifestations; I27.20 Pulmonary hypertension, unspecified; Z71.3 Dietary counseling and surveillance; Z86.14 Personal history of Methicillin resistant Staphylococcus aureus infection; Z99.81 Dependence on supplemental oxygen; Z20.822 Contact with and (suspected) exposure to COVID-19; Z79.899 Other long term (current) drug therapy
CPT/HCPCS: 0241U; 36415; 71045; 71260; 76882; 80048; 80053; 81001; 82272; 82607; 82728; 82746; 82803; 83540; 83605; 83615; 83735; 83880; 84484; 85025; 85027; 85045; 85610; 86140; 86850; 86900; 86901; 87040; 87086; 87147; 87205; 93005; 94640; 94660; 97116; 97162; 97530; 99285; J0131; J0295; J0360; J1120; J1171; J1650; J1940; J2405; J2543; J2919; Q9967

== ENCOUNTER → 2024-10-08 02:46 | Outpatient (BNV) | payer MEDICARE, MEDICAID, SELFPAY | PROVIDERS: Admitting Provider Physician Assistant; Emergency Provider Internal Medicine; PCP Internal Medicine; Visit Provider Internal Medicine | DX: I44.0 Atrioventricular block, first degree (principal); R00.0 Tachycardia, unspecified | CPT/HCPCS: 93010 ==

== ENCOUNTER → 2024-10-08 03:05 | Outpatient (BNV) | payer MEDICARE, MEDICAID, SELFPAY | PROVIDERS: Emergency Provider Internal Medicine; PCP Internal Medicine; Visit Provider Radiology Diagnostic Radiology | DX: J81.0 Acute pulmonary edema (principal) | CPT/HCPCS: 71045 ==

== ENCOUNTER 2024-10-08 05:00 | Outpatient (BNV) | payer OTHER, SELFPAY | END 2024-10-12 08:30 | PROVIDERS: Admitting Provider Physician Assistant; Emergency Provider Internal Medicine; PCP Internal Medicine; Visit Provider Radiology Diagnostic Radiology | DX: J96.90 Respiratory failure, unspecified, unspecified whether with hypoxia or hypercapnia (principal); J11.1 Influenza due to unidentified influenza virus with other respiratory manifestations | CPT/HCPCS: 71045 ==

== ENCOUNTER 2024-10-08 05:00 | Outpatient (BNV) | payer OTHER, SELFPAY | END 2024-10-14 10:37 | PROVIDERS: Admitting Provider Physician Assistant; Emergency Provider Internal Medicine; PCP Internal Medicine; Visit Provider Radiology Vascular & Interventional Radiology | DX: I51.7 Cardiomegaly (principal) | CPT/HCPCS: 71260 ==

== ENCOUNTER 2024-10-08 05:00 | Outpatient (BNV) | payer OTHER, SELFPAY | END 2024-10-10 16:46 | PROVIDERS: Admitting Provider Physician Assistant; Emergency Provider Internal Medicine; PCP Internal Medicine; Visit Provider Radiology Diagnostic Radiology | DX: L02.411 Cutaneous abscess of right axilla (principal) | CPT/HCPCS: 76882 ==

== ENCOUNTER → 2024-10-08 05:00 | Outpatient (BNV) | payer MEDICARE, MEDICAID, SELFPAY | PROVIDERS: Admitting Provider Physician Assistant; Emergency Provider Internal Medicine; PCP Internal Medicine; Visit Provider Surgery | DX: Z98.890 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ed postprocedural states (principal) | CPT/HCPCS: 99024 ==

== ENCOUNTER → 2024-10-08 05:00 | Outpatient (BNV) | payer MEDICARE, MEDICAID, SELFPAY | PROVIDERS: Admitting Provider Physician Assistant; Emergency Provider Internal Medicine; PCP Internal Medicine; Visit Provider Hospitalist | DX: A41.9 Sepsis, unspecified organism (principal); J96.21 Acute and chronic respiratory failure with hypoxia; J96.22 Acute and chronic respiratory failure with hypercapnia; J44.1 Chronic obstructive pulmonary disease with (acute) exacerbation; L02.411 Cutaneous abscess of right axilla; L03.119 Cellulitis of unspecified part of limb; J10.1 Influenza due to other identified influenza virus with other respiratory manifestations; Z68.43 Body mass index [BMI] 50.0-59.9, adult | CPT/HCPCS: 99223; 99499 ==

== ENCOUNTER → 2024-10-08 05:00 | Outpatient (BNV) | payer OTHER, SELFPAY | PROVIDERS: Admitting Provider Physician Assistant; Emergency Provider Internal Medicine; PCP Internal Medicine; Visit Provider Internal Medicine Pulmonary Disease | DX: J96.21 Acute and chronic respiratory failure with hypoxia (principal); J96.22 Acute and chronic respiratory failure with hypercapnia; I50.33 Acute on chronic diastolic (congestive) heart failure; E66.2 Morbid (severe) obesity with alveolar hypoventilation | CPT/HCPCS: 99223 ==

== ENCOUNTER 2024-10-27 11:29 | Outpatient (AMB) | payer MEDICARE, MEDICAID, SELFPAY ==
--- NOTE | 2024-10-27 11:41 | MHC.PC.OV ---
Vital Signs 10/27/24 11:42 BMI Reason not done Patient refused/unable BP 144/76 H Blood Pressure Location Lt brachial Position Sitting Respiration 20 Pulse 66 Pulse Source Pulse Oximeter Temp 98.3 F Temp Source Oral Pulse Oximetry (%) 96 Oxygen Delivery Method Room Air Intake Visit Reasons: TCM Intake Note: Pt is here today for TCM. Allergies gabapentin Allergy (Mild, Verified 10/27/24 12:05) Anxiety morphine [MORPHINE] Allergy (Unknown, Verified 10/27/24 12:05) ANAPHALAXIS, anaphylaxis propofol [From Diprivan] Allergy (Verified 10/27/24 12:05) Anaphylaxis Tobacco use date assessed: 10/27/24 Dental Screening Dental Screen Date: 10/27/24 HPI TCM HPI Details Patient presents for follow-up of hospitalization at [facility] for right axillary abscess respiratory failure due to influenza and COPD exacerbation discharged on October 19. Patient reports persistent productive cough with clear sputum some wheezing but reports albuterol not being effective. She has been using Trelegy and supplemental O2. Patient was started on Astral not invasive ventilator for severe hypoventilation syndrome with CO2 retention. Patient is established with online user experience strategist and has an appointment next week. She complains of increasing lower extremity swelling and high blood pressure since discharge. Patient used to take lisinopril 30 mg daily which was discontinued due to acute renal failure and hyperkalemia. Patient had hyperglycemia during the hospitalization with a blood glucose over 400 while on high dose of steroids. She has not been monitor her blood glucose and is not interested in starting. Patient would like to try GLP 1 agonist to facilitate weight loss which is not covered by her insurance for weight loss. She is not interested in seeing director of community center or weight management program TCM TCM Information Date of Discharge 10/20/24 Discharged From [facility] Interactive Contact Date (Reference documentation from this date) 10/26/24 [facility] Medical History (Updated 10/27/24 @ 13:04 by Sandra Diego MD) Influenza A Sepsis Acute on chronic heart failure with preserved ejection fraction (HFpEF) Acute exacerbation of chronic obstructive pulmonary disease BMI 50.0-59.9, adult VERN (acute kidney injury) COPD (chronic obstructive pulmonary disease) Enterococcus faecalis infection MSSA (methicillin susceptible Staphylococcus aureus) MRSA (methicillin resistant staph aureus) culture positive Encounter for management of wound VAC Chronic osteomyelitis Hypertension Iron deficiency anemia COPD (chronic obstructive pulmonary disease) Femur fracture Crohn's colitis Morbid obesity due to excess calories Closed tibia fracture Acute on chronic respiratory failure with hypoxia and hypercapnia Nonrheumatic mitral (valve) stenosis Paroxysmal atrial fibrillation Dyspnea Hypoventilation associated with obesity Pickwickian syndrome Chronic hypercapnic respiratory failure Opioid use disorder Surgical History Status post incision and drainage Hx of cholecystectomy History of open reduction and internal fixation (ORIF) procedure Status post open reduction and internal fixation (ORIF) of fracture Recent surgical procedure on lower extremity Family History Other Adopted Social History Household Members: Spouse and Children Household Members Other:: , [place]. Daughter Carolyn, 21. Daughter's Boyfriend, 22. Neice, 21 Housing: House Do you presently have visiting nurse or other home services: Yes Alcohol intake: never Comment: COUNTS CORRECT Patient Tobacco Use Status: Former Tobacco user Years Smoked: 25 e-Cigarette/Vaping Use: Never Used Second Hand Smoke Exposure: No Advance Directives Date on File: 12/16/20 service: No Current occupational status: disabled Cognitive needs: No Hearing needs: No Vision needs: Yes Questionnaire PHQ-9 Over the last 2 weeks, how often have you been bothered by any of the following problems? 1. Little interest or pleasure in doing things: several days 2. Feeling down, depressed, or hopeless: several days 3. Trouble falling or staying asleep, or sleeping too much: several days 4. Feeling tired or having little energy: several days 5. Poor appetite or overeating: several days 6. Feeling bad about yourself - or that you are a failure or have let yourself or your family down: several days 7. Trouble concentrating on things, such as reading the newspaper or watching television: several days 8. Moving or speaking so slowly that other people could have noticed. Or the opposite - being so fidgety or restless that you have been moving around a lot more than usual: not at all 9. Thoughts that you would be better off or of hurting yourself in some way: not at all Total score: 7 Depression Screening Interpretation: Negative Depression Screening Done: Yes 46544 - PHQ-9 Billing: Yes Source: Developed by Drs. Brady Stoner, Juan Diego Francis and colleagues, with an educational andra from [employer]. Thrive Questionnaire Date Thrive assessed: 10/27/24 I am a: Patient What is your living situation today?: I have a steady place to live Within the past 12 months, did the food you bought not last and you didn't have the money to get more?: Never true Within the past 12 months, did you worry whether your food would run out before you got money to buy more?: Never true Do you have trouble paying for medicines?: No Do you have trouble getting transportation to medical appointments?: No Do you have trouble paying your heating and electricity bill?: No Do you have trouble taking care of your child, family member or friend?: No Do you have trouble with day-to-day activities such as bathing, preparing meals, shopping, managing finances, etc.?: No Are you currently unemployed and looking for a job?: No Are you interested in more education?: No Please select the resources that you would like help with: None Currently or been in a relationship where the following occur: No concerns reported THRIVE Score: 0 GRETA-7 AMB Questionnaire GRETA-7 Date GRETA - 7 assessed: 10/27/24 Feeling nervous, anxious, or on edge: 1 = Several days Not being able to stop or control worryin = Not at all Worrying too much about different things: 0 = Not at all Trouble relaxin = Not at all Being so restless that it is hard to sit still: 0 = Not at all Becoming easily annoyed or irritable: 0 = Not at all Feeling afraid as if something awful might happen: 0 = Not at all Total GRETA-7 score (0-4 normal; 5-9 mild; 10-14 moderate; 15-21 severe): 1 Source: Developed by Drs. Brady Stoner, Juan Diego Francis and colleagues, with an educational andra from [employer]. GRETA-7 Assessment Billing GRETA-7 Assessment Tool: GRETA-7 Assessment 06538 Review of Systems Const All systems reviewed & are unremarkable except as noted in HPI and below Eyes Reports no additional complaints ENT Reports no additional complaints Card Reports no additional complaints Resp Reports no additional complaints GI Reports no additional complaints Reports no additional complaints Physical exam (Primary Care) Vital Signs: Last Vital Signs Temp 98.3 F 10/27/24 11:42 Pulse 66 10/27/24 11:42 Resp 20 10/27/24 11:42 BP 144/76 H 10/27/24 11:42 Pulse Ox 96 10/27/24 11:42 Oxygen Delivery Method Room Air 10/27/24 11:42 Tobacco/Smoking Status: Tobacco use Status Tobacco use date assessed 10/27/24 10/27/24 11:43 Patient Tobacco Use Status Former Tobacco user 10/27/24 11:43 e-Cigarette/Vaping Use Never Used 10/27/24 11:43 PHQ-9: PHQ-9 Score PHQ-9: Total score 7 10/27/24 12:22 Depression Screening Interpretation: Negative Thrive Assessment: Date of Thrive Assessment Date Thrive assessed 10/27/24 10/27/24 11:43 Currently or been in a relationship where the following occur: No concerns reported Const General: no acute distress HENMT Ears: hearing grossly normal bilaterally Eyes General: appearance normal, both eyes and all related structures Neck Neck: Yes no lymphadenopathy and Yes supple Resp Effort & Inspection: normal respiratory effort Auscultation: rhonchi and wheezes Cardio Rhythm: regular rhythm Heart sounds: S1 normal heart sound present and S2 normal heart sound present GI Inspection: Yes normal to inspection Palpation (GI): Soft to palpation Percussion: Yes normal to percussion Auscultation: normal bowel sounds Extrem Other: 2+ pitting edema chronic venous stasis changes and dry scaling skin on both lower extremities Results AMB Hemoglobin A1c AMB Hemoglobin A1c 6.9 % Last Edit by FRANCISCA Love on 10/27/24 12:28 Coding Level of Care Code TCM High MDM <= 14 days Diagnoses Paroxysmal atrial fibrillation I48.0 Chronic hypoxic respiratory failure J96.11 Chronic kidney disease, stage 3 N18.30 DM type 2 (diabetes mellitus, type 2) E11.9 Hypertension I10 Additional Codes GRETA-7 Assessment Billing - GRETA-7 Assessment Tool: GRETA-7 Assessment 91149 ([id number]) PHQ-9 - 90515 - PHQ-9 Billing: Yes ([id number]) Assessment & Plan Assessment & Plan (1) Paroxysmal atrial fibrillation: Comment: 1 episode 2021, developed leg hematoma on anticoagulation Code(s): I48.0 - Paroxysmal atrial fibrillation Category: Medical Plan: Controlled on diltiazem (2) Chronic hypoxic respiratory failure: Comment: Secondary to morbid obesity, hypoventilation, COPD, echo 04/2024 nl EF, severe pulmonary hypertension Code(s): J96.11 - Chronic respiratory failure with hypoxia Category: Medical Plan: Continue Astral noninvasive ventilator, supplemental O2 Trelegy and follow-up with pulmonology (3) Chronic kidney disease, stage 3: Code(s): N18.30 - Chronic kidney disease, stage 3 unspecified Category: Medical Plan: Monitor renal function (4) DM type 2 (diabetes mellitus, type 2): Code(s): E11.9 - Type 2 diabetes mellitus without complications Category: Medical Plan: A1c is 6.9 today but patient is not interested in starting medications. She believes her high A1c is due to hyperglycemia during her hospitalization, treated with high dose of steroids. She is not interested in monitoring her blood glucose. ADA diet discussed with the patient. She is not interested in seeing a director of community center. She will follow-up in 1 month with a fasting labs before including A1c (5) Hypertension: Code(s): I10 - Essential (primary) hypertension Category: Medical Plan: Add 10 mg of lisinopril to diltiazem patient will have basic metabolic panel checked in 1 week and then 1 month Orders: Orders AMB Hemoglobin A1c Today Z13.9 - Encounter for screening, unspecified Comprehensive [place]. Panel Fast 1 Month E11.9 - Type 2 diabetes mellitus without complications, I48.0 - Paroxysmal atrial fibrillation, N18.30 - Chronic kidney disease, stage 3 unspecified AMB Hemoglobin A1c 1 Month E11.9 - Type 2 diabetes mellitus without complications, I48.0 - Paroxysmal atrial fibrillation, N18.30 - Chronic kidney disease, stage 3 unspecified, Z13.9 - Encounter for screening, unspecified Lipid Panel 1 Month E11.9 - Type 2 diabetes mellitus without complications, I48.0 - Paroxysmal atrial fibrillation, N18.30 - Chronic kidney disease, stage 3 unspecified Microalbumin, Random (w Creat) 1 Month E11.9 - Type 2 diabetes mellitus without complications, I48.0 - Paroxysmal atrial fibrillation, N18.30 - Chronic kidney disease, stage 3 unspecified Complete Blood Count Auto Diff 1 Month E11.9 - Type 2 diabetes mellitus without complications, I48.0 - Paroxysmal atrial fibrillation, N18.30 - Chronic kidney disease, stage 3 unspecified Basic Metabolic Panel 1 Week E11.9 - Type 2 diabetes mellitus without complications, I48.0 - Paroxysmal atrial fibrillation, J96.11 - Chronic respiratory failure with hypoxia, N18.30 - Chronic kidney disease, stage 3 unspecified Basic Metabolic Panel Today E11.9 - Type 2 diabetes mellitus without complications, N18.30 - Chronic kidney disease, stage 3 unspecified Hemoglobin A1c 1 Month E11.9 - Type 2 diabetes mellitus without complications, I48.0 - Paroxysmal atrial fibrillation, N18.30 - Chronic kidney disease, stage 3 unspecified Medications: New lisinopril 10 mg PO DAILY 90 tabs 0RF
[2024-10-27 11:42] VITALS: BP 144/76; PULSE 66; RESP 20; TEMP 36.8; O2SAT 96
--- OUTSIDE RECORDS SUMMARY | 2024-10-27 13:30 | XMS_ITS | Clinical Summary ---
Author Organization [facility] Address [address] [place] [address] Care Team Providers Care Burglar Alarm Inspector Name Role Phone Evin Fan MD Primary Care Provider [phone] Allergies Active Allergy Reactions Criticality Noted Date [...] age to complete this topic Care Teams Burglar Alarm Inspector Relationship Specialty Start Date End Date Evin Fan MD [address] [place] [address] [place] [id number] PCP - General Family Medicine 01/20/21
--- OUTSIDE RECORDS SUMMARY | 2024-10-27 13:30 | XMS_ITS | Data Portability ---
Author Organization [facility], Main Office Address [address] [address] [place] [address] Care Team Providers Care Pharm Tech Name Role Phone DAY () OTHER Assessment Encounter Date Assessment Date Assessment LastModified by Organization Details LastModified Time 03/30/2019 03/30/2019 03/28/19 Na 143, K 4.9, BUN 21, Health And Safety Instructor 0.75-in hospital [email or web address] Not available 03/30/2019 11:50:52 04/03/2019 04/03/2019 03/31/19 WBC 16.2, Hgb 11.3, Hct 37.9, Plt 190, Na 144, K 3.7, BUN 23, Health And Safety Instructor 0.69, C02 42 [email or web address] Not available 04/03/2019 [...] By Organization Details Last Modified Time 03/31/2019 [id number] wound care team to evaluate leg wound myoss Not available 03/31/2019 12:48:10 Reason for Referral None Reported. Problems Name Problem SNOMED Code Status Onset Date Resolution Date Notes Provider Name and Address Organization Details Recorded Time Rpaff-yr-uge onic respiratory failure 02243070 Active 2018 bipap setting 16/7.9 and 5 liters of oxygen ANDREI HUTCHINSON [address] [facility], [address], [place], [address], [facility] [employer] 9 11:54:07 Chronic obstructive pulmonary disease 12451544 Active 2018 NUBIA SHINEKI ANDREI [address], [address], [place], [address], [facility] 9 11:43:00 Smoker 15314403 Active 2018 NUBIA DALTONAMYP [address], [address], [place], [address], [place] - [facility] 9 11:43:06 Bacteremia 7015757 Active 2018 NUBIA DALTON ANDREI [address], [address], [place], [address], [place] - [facility] 9 11:45:37 Crohn's disease 83874533 Active 2018 ANDREI HUTCHINSON [address], [address], [place], [address], [place] - [facility] 9 11:46:44 Chronic hepatitis C 296356402 Active 2018 ANDREI HUTCHINSON [address], [address], [place], [address], [facility] - [facility] 9 11:47:00 Asthma 613549269 Active 2018 ANDREI HUTCHINSON [address], [address], [place], [address], [facility] - [facility] 9 11:47:20 Chronic pain 65473834 Active 2018 ANDREI HUTCHINSON [address], [address], [place], [address], [facility] - [facility] 9 11:47:51 Venous stasis 21141463 Active 2018 ANDREI HUTCHINSON [address], [address], [place], [address], [place] - [facility] 9 11:48:13 Anxiety 05020802 Active 2018 ANDREI HUTCHINSON [address], [place], [address], [place] - [facility] 9 11:54:52 Essential hypertension 91088070 Active 2018 NUBIA HOFFMAN MACHINE I TRIMMER [address] [facility], [address], [place], [address], [facility] 9 12:12:54 Insomnia 686208145 Active 2018 NUBIA MICHAELROSIEBRINA ANDREI [address] [facility], [address], [place], [address], [facility] 9 12:13:59 Problem Notes None recorded. Medical Equipment None Reported. Allergies Allergen ID Allergen Name Allergen Category Reaction Reaction Severity Criticality Documentation Date Start Date Code Code System Note Provider Name and Address Organization Details Recorded Time 52900 morphine medicatio n Not available Not available [...] 141 mm[Hg] 65 mm[Hg] ANDREI HUTCHINSON [address] [facility], [address], [place], [address], [facility] 9 11:39:45 Date Recorded Heart rate Respiratory rate Oxygen saturation Oxygen saturation in Arterial blood by Pulse oximetry Inhaled oxygen flow rate Systolic blood pressure Diastolic blood pressure Provider Name and Address Organization Details Last Updated DateTime 9 74 /min 20 /min 93 % 93 % 3 L/min 115 mm[Hg] 71 mm[Hg] Milli Milton MD [address] [facility], [address], [place], [address], [facility] 9 11:57:31 Date Recorded Body temperature Heart rate Respiratory rate Oxygen saturation Oxygen saturation in Arterial blood by Pulse oximetry Inhaled oxygen flow rate Systolic blood pressure Diastolic blood pressure Provider Name and Address Organization Details Last Updated DateTime 9 98.1 [degF] 68 /min 20 /min 96 % 96 % 3 L/min 115 mm[Hg] 59 mm[Hg] ANDREI HUTCHINSON [address] [facility], [address], [place], [address] - [facility] 9 12:31:37 Social History Question Answer Notes LastModified by Organizat ion Details LastModified Time Tobacco Smoking Status Current Every Day Smoker Not Available [facility] 05/21/2020 03:13:22 Do You Have An Advance Directive? No [id number] Information not available 05/21/2020 What Is Your Level Of Alcohol Consumption? None [id number] Information not available 05/21/2020 How Much Tobacco Do You Chew? None [id number] Information not available 05/21/2020 Do You Or Have You Ever Used E-cigarettes Or Vape? Never Used Electronic Cigarettes [id number] Information not available 05/21/2020 Do You Have A Medical Power Of Casino Worker? No [id number] Information not available 05/21/2020 What Was The Date Of Your Most Recent Tobacco Screening? 03/30/2019 [id number] Information not available 05/21/2020 Do You Or Have You Ever Used Smokeless Tobacco? Never Used Smokeless Tobacco [id number] Information not available 05/21/2020 How Much Tobacco Do You Smoke? 1 PPD [id number] Information not available 05/21/2020 On What Date Was Tobacco Cessation Counseling Provided? 03/30/2019 Nicotine Patch On [id number] Information not available 05/21/2020 How Many Years Have You Smoked Tobacco? 20 [id number] Information not available 05/21/2020 Sex: Unknown Functional Status None recorded. Mental Status None recorded. Family History Nothing Reported. Medical History No medical history recorded. Gynecological HistoryNo gynecological history recorded. Obstetrics History GPAL:G 0 P 0 0 0 0 Past Encounters Encounter ID Performer Location Encounter Start Date Encounter Closed Date Diagnosis/Indication Diagnosis SNOMED-CT Code Diagnosis ICD10 Code Diagnosis Note [id number] ANDREI HUTCHINSON [address] [address] [place] [address] 03/30/2019 11:27:04 04/18/2019 13:50:48 Zyjfx-yh-jeeqzqb respiratory failure 60160954 J96.22 uses bipap 16/7.9 with 5 liters of oxygenpred nisone taper q 3 daystheoph ylline anhydrous er 400 mg qdanoro ellipta 62.5-25 mcg qdbaseline o2 3 litersmoni tor respirator y status Bacteremia 0840508 R78.8 1 ceftriaxon e 2 gms iv qd til 04/17/19wil l add probioticP icc line management follow with id Chronic ob structive pulmonary disease 59694093 J41.8 see above Smoker 62036793 F17.210 nicotine patch 21 mg qdmonitor Chronic pain 18843062 G8 9.29 suboxone 8/2 tidmonitor pain Venous stasis 36728549 I 87.8 2 wounds on left legwill have wound see heremonito r Asthma 376693398 J45.99 8 see above Chronic hepatitis C 1283 08569 B18.2 in historymon itor Crohn's disease 17207026 K50.80 in historymon itor Anxiety 92488772 F41.1 clonazepam 0.5 mg qddiscusse d risk vs benefit of clonazepam with ptmonitor anxiety Essential hypertension 86414123 I10 lisinopril 20 mg qdmonitor b/p and labs Insomnia 944290734 G47.0 9 temazepam 30 mg q hsdiscusse d risk vs benefit of temazepam with pt monitor sleep [id number] Milli Milton MD [address] [place] [address] 03/31/2019 11:56:49 04/18/2019 13:53:53 Chronic obstructive pulmonary disease 53056940 J41.1 s/p recent exacerbati on with acute on chronic respirator y failureAno ro Ellipta 62.5-25 one puff dailyoxyge n at 3lpredniso ne 40 mg dailytheop hylline ER 400 mg dailywill monitor Chronic pain 95159561 G8 9.29 buprenorpi ne-naloxon e 8-2 - one film SL tidwill monitor Anxiety 13698333 F41.1 clonazepam 0.5 mg dailywill monitor Essential hypertension 44725586 I10 lisinopril 20 mg dailywill continue to monitor Smoker 49984025 F17.200 nicoderm 21 patch dailyencou rage smoking cessation Bacteremia 1137467 R78.8 1 IV ceftriaxon e 2 gm daily until 04/16/19wil l monitor Insomnia 091856284 G47.0 9 temazepam 30 mg at hs - will decrease to 15 mg at hswill monitor [id number] ANDREI HUTCHINSON [address] [address] [place] [address] 04/03/2019 12:19:28 04/18/2019 13:52:43 Bacteremia 2652012 R78.81 ceftriaxon e 2 gms iv qd til 04/17/19pro bioticPicc line management follow with id Acute-on-c hronic respiratory failure 74148093 J96.22 uses bipap 16/7.9 with 5 liters of oxygenpred nisone taper q 3 daystheoph ylline anhydrous er 400 mg qdanoro ellipta 62.5-25 mcg qdbaseline o2 3 litersfoll ow up with pulmonolog y Chronic ob structive pulmonary disease 79760094 J41.8 see above Asthma 973636060 J45.99 8 see above Smoker 87351029 F17.210 nicotine patch 21 mg qdfollow up with PCP Chronic pain 18737517 G8 9.29 suboxone 8/2 tidfollow up with PCP Venous stasis 05026426 I 87.8 2 wounds on left legfollow with PCP Chronic hepatitis C 1283 99874 B18.2 in historyfol low up with PCP Crohn's disease 82921506 K50.80 in historyfol low up with PCP Anxiety 09754249 F41.1 clonazepam 0.5 mg qdfollow up with PCP Essential hypertension 68594567 I10 lisinopril 20 mg qdfollow up with PCP Insomnia 243141600 G47.0 9 temazepam 15 mg q hsfollow up with PCP Health Concerns Section Related Observation LastModified by Organization Detai ls LastModified Time None Recorded Concern Status LastModified by Organization Details LastModified Time None Recorded Advance Directives Directive N: Payers Encounter Date Sequence Insurance Name Policy Number Policy Garcia Covered Member ID Garcia Member ID Guarantor Name 03/30/2019 1 [place] [facility] Sample [id number] 1 [place] Sample 03/31/2019 1 [place] [facility] Sample [id number] 1 [place] Sample 04/03/2019 1 [place] [facility] Sample [id number] 1 Brianne Sample Notes Date Note Type Note Provider Name and Address Organization Details Recorded Time 03/30/2019 text/html A 59 year old female being seen for a initial intake note. Patient presented to [facility] er with sob and cough. She received [...] respiratory failure and hepatitis c. NUBIA HOFFMAN, MACHINE I TRIMMER [address] [facility], [address], [place], [address], [facility] [employer] 03/30/2019 19:27:36 03/31/2019 text/html This 59 year old female was admitted to [facility] on 03/29/19 for continued care and rehab after [facility] for acute on chronic respiratory failure. Patient presented to [facility] ER with sob and cough as well as weakness and confusion. She had recently been injured by oxygen tank falling on left leg before long drive. Leg became swollen and infected. Patient stopped at Urgent Care and then ER on her travels. She received Rx for oral doxycycline. At [facility], she received solu-medrol, IV furosemide and updrafts [...] full code assumed Milli Milton MD [address] [facility], [address], [place], [address], [facility] [employer] 03/31/2019 12:49:04 04/03/2019 text/html A 59 year old female being seen for a discharge summary. Patient presented to [facility] er with sob and cough. She received [...] failure and hepatitis c. ANDREI HUTCHINSON [address] [facility], [address], [place], [address], [employer] 04/03/2019 14:05:15 OBGyn Episode No OBEpisode recorded.
--- OUTSIDE RECORDS SUMMARY | 2024-10-27 13:30 | XMS_ITS | Patient Health Record ---
Author Organization [facility] [place] Address [address] [place] [address] Care Team Providers Care Muck Farmer Name Role Phone Gal Solorio MD Primary Care Provider Unavail able Ritchie Werner Unavailable [phone] Allergies No Known Allergies Reason For Referral [...] W/U Status Risk Notes Problem Atherosclerosis of curyung arteries of the extremities ([id number]) Atherosclerosis of curyung artery of both lower extremities, with unspecified presence of clinical manifestation (I70.203) Active confirmed Plan Of Treatment Pending Test Test Name Order Date [id number]-[id number] NAIL, 1-5 03/04/2023 [id number]-[id number] SKIN LESIONS, 2 TO 4 03/04/20 23 [id number] DYSTROPHIC NAILS ANY # Insurance Providers Payer Name Payer Address Payer Phone Subscriber Number Group Number Insured Name Patient Relationship to Insured Coverage Start Date Coverage End Date Medicare [employer] [address] [place] [address] [phone] [id number] Sample, Brianne Self - patient is the [...]
--- OUTSIDE RECORDS SUMMARY | 2024-10-27 13:30 | XMS_ITS | Clinical Summary ---
Author Organization [facility] Facility Address [address] [address] Care Team Providers Care Clearance Cutter Name Role Phone Unavailable Primary Care Provider [...]
== END 2024-10-27 13:06 | disposition home or self-care (01) ==
LOC: HO.HMCC 11:30
PROVIDERS: PCP Internal Medicine; Visit Provider Internal Medicine
DX: I12.9 Hypertensive chronic kidney disease with stage 1 through stage 4 chronic kidney disease, or unspecified chronic kidney disease (principal); N18.30 Chronic kidney disease, stage 3 unspecified; E11.22 Type 2 diabetes mellitus with diabetic chronic kidney disease; I48.0 Paroxysmal atrial fibrillation; J96.11 Chronic respiratory failure with hypoxia

== ENCOUNTER → 2024-10-27 11:29 | Outpatient (BNVA) | payer MEDICARE, MEDICAID, SELFPAY | PROVIDERS: PCP Internal Medicine; Visit Provider Internal Medicine | DX: J44.9 Chronic obstructive pulmonary disease, unspecified (principal); I48.0 Paroxysmal atrial fibrillation; J96.11 Chronic respiratory failure with hypoxia; E11.22 Type 2 diabetes mellitus with diabetic chronic kidney disease; I12.9 Hypertensive chronic kidney disease with stage 1 through stage 4 chronic kidney disease, or unspecified chronic kidney disease; N18.30 Chronic kidney disease, stage 3 unspecified; Z99.81 Dependence on supplemental oxygen | CPT/HCPCS: 83036; 96127; 99495 ==

== ENCOUNTER → 2024-11-02 23:59 | Outpatient (BNV) | payer MEDICARE, MEDICAID, SELFPAY | PROVIDERS: PCP Internal Medicine; Visit Provider Internal Medicine | DX: I11.0 Hypertensive heart disease with heart failure (principal); D50.9 Iron deficiency anemia, unspecified; G47.33 Obstructive sleep apnea (adult) (pediatric) | CPT/HCPCS: G0180 ==

== ENCOUNTER 2024-11-05 17:01 | Inpatient (IN) | payer OTHER, MEDICAID, SELFPAY ==
[2024-11-05] VITALS (7 sets, daily range): BP systolic 112–146; BP diastolic 40–52; PULSE 63–72; RESP 17–24; TEMP 36.7; O2SAT 90–97; BMI 54.1
--- NOTE | ~2024-11-05 | XR_ITS ---
EXAMINATION: XR CHEST 1 VIEW HISTORY: hypoxia COMPARISON: Comparison is made with the prior examination dated 11/05/2024. FINDINGS: A single AP portable view of the chest performed at 8:24 AM is submitted. Mild pulmonary vascular prominence persists and may be chronic. There is no pleural effusion or pneumothorax. The heart remains markedly enlarged. The aorta is calcified. The bones are intact. XR/XR chest 1V IMPRESSION: Cardiomegaly. Pulmonary vascular prominence which may be chronic. Electronically signed by: Brady Blanca MD 11/07/2024 09:00 AM EDT
--- NOTE | ~2024-11-05 | XR_ITS ---
CLINICAL HISTORY: sob 1 view chest x-ray Comparison: CT/CO/SR - CT CHEST W IV CON - 10/14/24 10:37 EDT Findings: Cardiomegaly. Cephalization of pulmonary vasculature and central pulmonary vascular engorgement. Increased interstitial markings in both lungs, with central/perihilar predominance. Scattered hazy alveolar opacities in both lungs. No visible pleural effusion or findings of pneumothorax. Prominent left lower lobe bleb again noted. No gross evidence of acute fracture. IMPRESSION: 1. Cardiomegaly with findings of moderate interstitial and alveolar edema. This document has been electronically signed by: Himanshu Garcia MD on 11/05/2024 19:55:07
--- NOTE | 2024-11-05 17:43 | ED.GENADULT ---
HPI - General Adult General Chief complaint: Dyspnea Stated complaint: low o2 sat. 92% for ems on 4L Time Seen by Provider: 11/05/24 17:15 Source: patient Limitations: no limitations History of Present Illness ED Provider: Madeline River PA-C HPI narrative: 64-year-old female with a history of COPD, chronic respiratory failure on 3-4 L O2, BiPAP at night, paroxysmal AFib (no anticoagulant), obesity, with a recent admission due to acute hypercarbic respiratory failure from oxygen induced hypercapnia with ICU stay and axillary abscess, who presents with hypoxia. Patient states her oxygen has been dropping into the 70-80s on 4 L nasal cannula, which she uses with activities of daily living. When she is at rest, her oxygen remains appropriate.; 93% on 3L is her baseline per the patient and her spouse. Denies recent cough or cold symptoms, fever, unintentional weight gain, new pedal edema, CP. Patient's spouse is a nurse here at [facility]. Related Data Home Medications ?Medication ?Instructions ?Recorded ?Confirmed fluticasone fur. 100 mcg-umeclid 1 ea inhalation DAILY 04/24/24 11/06/24 62.5 mcg-vilant 25 mcg inhalat.powder (Trelegy Ellipta) cholecalciferol (vitamin D3) 50 50 mcg PO DAILY 05/21/24 10/26/24 mcg (2,000 unit) tablet clonazepam 0.5 mg tablet 0.5 mg PO BID PRN Anxiety 05/21/24 10/26/24 temazepam 30 mg capsule 30 mg PO BEDTIME PRN Sleep 05/21/24 10/26/24 acetaminophen 500 mg tablet 1,000 mg PO TID PRN Pain 09/28/24 10/26/24 clonazepam 1 mg tablet 1 mg PO DAILY 09/28/24 10/26/24 omeprazole 20 mg tablet,delayed 20 mg PO DAILY@0630 09/28/24 11/06/24 release oxycodone 5 mg tablet 20 mg PO 5XD 09/28/24 10/26/24 atorvastatin 80 mg tablet 80 mg PO DAILY 10/08/24 11/06/24 doxycycline monohydrate 100 mg 100 mg PO BID 11/06/24 11/06/24 capsule prednisone 10 mg tablet mg PO 11/06/24 Previous Rx's ?Medication ?Instructions ?Recorded diltiazem HCl 240 mg capsule,24 240 mg PO DAILY #90 caps 08/14/24 hr,extended release nystatin 100,000 unit/gram topical 1 appl topical BID #30 grams 10/01/24 powder theophylline 400 mg 400 mg PO DAILY #30 caps 10/06/24 capsule,extended release 24 hr (Roque-24) ferrous sulfate 324 mg (65 mg 324 mg PO DAILY #30 tabs 10/19/24 iron) tablet,delayed release furosemide 20 mg tablet 20 mg PO BID #180 tabs 10/25/24 lisinopril 10 mg tablet 10 mg PO DAILY #90 tabs 10/27/24 Allergies Allergy/AdvReac Type Severity Reaction Status Date / Time gabapentin Allergy Mild Anxiety Verified 11/05/24 17:13 morphine [MORPHINE] Allergy Unknown ANAPHALAXIS, Verified 11/05/24 17:13 anaphylaxis propofol [From Diprivan] Allergy Anaphylaxis Verified 11/05/24 17:13 Review of Systems Review of Systems: Yes all other systems are reviewed and are negative Constitutional: Constitutional: Denies fatigue and Denies fever(s) ENT: Denies nasal congestion and Denies sore throat Cardiovascular: Cardiovascular: Denies chest pain and Reports dyspnea Respiratory: Respiratory: Reports cough, Reports dyspnea and Denies wheezing Gastrointestinal: Gastrointestinal: Denies abdominal pain, Denies diarrhea, Denies nausea and Denies vomiting Endocrine: Endocrine: Denies fatigue Allergic/Immunologic: Allergic/Immunologic: Denies wheezing PMFSH Past Medical History Attestation statement: The following information was validated with the patient. Medical History (Updated 11/06/24 @ 02:46 by MONTSE Recinos) Influenza A Sepsis Acute on chronic heart failure with preserved ejection fraction (HFpEF) Acute exacerbation of chronic obstructive pulmonary disease BMI 50.0-59.9, adult VERN (acute kidney injury) COPD (chronic obstructive pulmonary disease) Enterococcus faecalis infection MSSA (methicillin susceptible Staphylococcus aureus) MRSA (methicillin resistant staph aureus) culture positive Encounter for management of wound VAC Chronic osteomyelitis Hypertension Iron deficiency anemia COPD (chronic obstructive pulmonary disease) Femur fracture Crohn's colitis Morbid obesity due to excess calories Closed tibia fracture Acute on chronic respiratory failure with hypoxia and hypercapnia Nonrheumatic mitral (valve) stenosis Paroxysmal atrial fibrillation Dyspnea Hypoventilation associated with obesity Pickwickian syndrome Chronic hypercapnic respiratory failure Opioid use disorder Surgical History Status post incision and drainage Hx of cholecystectomy History of open reduction and internal fixation (ORIF) procedure Status post open reduction and internal fixation (ORIF) of fracture Recent surgical procedure on lower extremity Family History Family History Other Adopted Social History Social History Household Members: Spouse and Children Household Members Other:: , Hoa. Daughter Carolyn, 21. Daughter's Boyfriend, 22. Neice, 21 Housing: House Do you presently have visiting nurse or other home services: Yes Alcohol intake: never Comment: COUNTS CORRECT Patient Tobacco Use Status: Former Tobacco user Years Smoked: 25 e-Cigarette/Vaping Use: Never Used Second Hand Smoke Exposure: No Advance Directives: Yes Advance Directives on File: Yes Advance Directives Date on File: 12/16/20 Patient : No service: No Current occupational status: disabled Cognitive needs: No Hearing needs: No Vision needs: Yes Physical Exam ED Vital Signs: Vital Signs - 24 hr 11/05/24 17:12 11/05/24 18:29 11/05/24 20:20 Temperature 98.1 F Pulse Rate 71 Respiratory Rate 19 24 H 24 H Blood Pressure 125/40 L Pulse Oximetry 94 Oxygen Delivery Method Nasal Cannula Oxygen Flow Rate 11/05/24 20:43 11/05/24 22:56 Temperature Pulse Rate 63 72 Respiratory Rate 20 17 Blood Pressure 112/49 L 138/50 L Pulse Oximetry 90 L 97 Oxygen Delivery Method BiPAP Nasal Cannula Oxygen Flow Rate 3 BMI result Body Mass Index 54.1 Const Other: Awake, appears older than stated age Orientation/consciousness: patient oriented x3 Resp Other: No crackles, no wheezes posterior cerna, I can hear air movement although diminished to some degree Cardio Other: Normal peripheral perfusion Skin Other: Warm dry no rash Neuro General: patient oriented x3, no focal motor deficits and CN's II-XI intact bilaterally Extrem Other: Skin over lower extremities is thickened, dry with overlying scale, hyperpigmentation, consistent with venous stasis dermatitis, pitting edema noted Psych Other: Cooperative Course Reevaluation(s) Reevaluation #1: Getting the ABG back, the patient's pH is appropriate, she is retaining, her pCO2 is 89.9, she is compensating, her bicarb is 54, she needs BiPAP, we will reach back out to the respiratory therapist, the family also brought the home bipap, perhaps there is something that we can modify so she can return home. Respiratory therapy states that she lives in the high 80s with her prior ABGs, so she is not too far off her baseline Time: 17:49 Reevaluation #2: Respiratory therapy had a lengthy conversation with the patient. They have the incorrect settings on her new oxygen unit. The patient is also non-adherence with her BiPAP. She is supposed to be using for 16 hours a day, she has been using it overnight, but not for an additional 8 hours during the day. The patient also verbalizes concern over her quality of life, to be on BiPAP for 16 hours a day is not what she necessarily wants for herself. Medications Administered Generic Name Dose Route Start Last Admin Trade Name Freq PRN Reason Stop Dose Admin Azithromycin 500 mg 11/06/24 01:00 11/06/24 01:19 Azithromycin 500 Mg Tablet PO 500 mg BEDTIME BEN Administration Enoxaparin Sodium 40 mg 11/06/24 02:00 11/06/24 02:10 Enoxaparin Sodium 40 Mg/0.4 Ml Syringe SUBCUT Not Given Q12H BEN Furosemide 20 mg 11/06/24 01:15 11/06/24 01:47 Furosemide 20 Mg/2 Ml Vial IVPUSH 20 mg DAILY BEN Administration Protocol Methylprednisolone Sodium Succinate 40 mg 11/06/24 01:00 11/06/24 01:19 Methylprednisolone Sod Succ 40 Mg/Ml Vial IVPUSH 40 mg Q6H BEN Administration Discontinued Medications Generic Name Dose Route Start Last Admin Trade Name Freq PRN Reason Stop Dose Admin Enoxaparin Sodium 40 mg 11/06/24 01:00 11/06/24 01:49 Enoxaparin Sodium 40 Mg/0.4 Ml Syringe SUBCUT 40 mg BEDTIME BEN Administration Medical Decision Making Medical Decision Making MDM Narrative: 64-year-old female with a history of COPD, chronic respiratory failure on 3-4 L O2, BiPAP at night, paroxysmal AFib (no anticoagulant), obesity, with a recent admission due to acute hypercarbic respiratory failure from oxygen induced hypercapnia with ICU stay and axillary abscess, who presents with hypoxia. Patient states her oxygen has been dropping into the 70-80s on 4 L nasal cannula, which she uses with activities of daily living. When she is at rest, her oxygen remains appropriate.; 93% on 3L is her baseline per the patient and her spouse. Denies recent cough or cold symptoms, fever, unintentional weight gain, new pedal edema, CP. Patient's spouse is a nurse here at [facility]. She has noted that her has been more somnolent at home. The patient will use her BiPAP at night for sleep, however she is supposed to use it for an additional 8 hrs during the day, but is non-adherent. The patient and her spouse also state that she has a new oxygen compressor at home, they are uncertain if the settings are correct. Problem: Acute on chronic respiratory failure, paroxysmal AFib, morbid obesity History: Per patient and her spouse I have considered the following differential diagnoses: COPD exacerbation, viral syndrome, pneumonia, ACS, new heart failure, PE Plan: The patient was here due to hypoxia associated with the activities of daily living. She has no specific associated infectious symptoms to suggest pneumonia or viral syndrome. She is not wheezing to suggest COPD exacerbation. She has not had worsening pedal edema or unintentional weight gain to suggest heart failure exacerbation. She has no chest pain to suggest ACS. The patient's symptoms could simply be secondary to progression of her disease process. It appears she is approaching end-stage COPD. We will be screening broad labs including a viral panel, troponin, BNP, EKG and chest x-ray. I have considered PE, the patient is essentially immobile, however she just had a CT of the chest during her recent hospital admission just weeks ago. I have independently reviewed the following tests: Labs: No leukocytosis, left shift noted, ,stable anemia , minimal hypernatremia, blood gas pCO2 90, PO2 74, bicarb 54, pH 7.38, viral panel negative, trop 5.5, bnp 83 EKG: Sinus tachycardia first-degree AV block, rate of 101, no ischemic changes no ectopy Chest x-ray:IMPRESSION: 1. Cardiomegaly with findings of moderate interstitial and alveolar edema. Lab Data 11/05/24 17:44 11/05/24 17:44 Labs: Lab Results 11/05/24 11/05/24 11/05/24 Range/Units 17:40 17:44 17:46 WBC 5.1 (4.8-10.8) X10*3/uL RBC 3.33 L D (4.20-5.50) X10*6/uL Hgb 8.4 L D (12.0-16.0) g/dl Hct 29.3 L (37.0-47.0) % MCV 88.0 (80.0-98.0) fL MCH 25.2 L (27.0-33.0) pg MCHC 28.7 L (31.0-35.0) g/dl RDW 17.7 H (11.0-16.0) % Plt Count 217 (160-400) X10*3/uL MPV 9.5 (9.4-12.3) fL Immature Gran % (Auto) 0.2 (0.0-0.4) % Neut % (Auto) 74.3 H (45-73) % Lymph % (Auto) 11.8 L (20-40) % [place] % (Auto) 10.1 (2-11) % Eos % (Auto) 3.2 (0-4) % Baso % (Auto) 0.4 (0-2) % Lymph # (Auto) 0.6 L (1.2-4.9) X10*3/uL [place] # (Auto) 0.5 (0.1-1.2) X10*3/uL Eos # (Auto) 0.2 (0.0-0.4) X10*3/uL Baso # (Auto) 0.0 (0.0-0.2) X10*3/uL Abs Immat Gran (auto) 0.01 (0.00-0.03) X10*3/uL Absolute Neuts (auto) 3.8 (2.0-8.3) x10*3/uL Absolute Nucleated RBC 0.000 (0.0-0.012) X10*3/uL Nucleated RBC % (auto) 0.0 (0.0-0.2) /100WBC O2 Saturation 96.0 % ABG pH at Pt Temp 7.38 (7.35-7.45) ABG pCO2 at Pt Temp 90 H* (32-45) mmHg ABG pO2 at Pt Temp 74 L (83-108) mmHg ABG HCO3 54 H (22-26) mmol/L ABG Base Excess (Actual) 25.4 mmol/L Sodium 146 H (135-145) mmol/L Potassium 3.9 (3.3-5.1) mmol/L Chloride 93 L (96-108) mmol/L Carbon Dioxide 43 H* (22-29) mmol/L Anion Gap 14 (12-20) BUN 18 H (9-16) mg/dL Creatinine 0.74 (0.5-1.4) mg/dL Estim Creat Clear Calc 99.0 Estimated GFR > 60 Random Glucose 173 H (60-115) mg/dL Calcium 9.0 D (8.4-10.2) mg/dL Magnesium 2.0 (1.6-2.6) mg/dL Total Bilirubin 0.3 (0.0-1.0) mg/dL AST 13 (5-31) U/L ALT < 6 (0-31) U/L Alkaline Phosphatase 111 (39-117) U/L Troponin I High Sens 5.5 (<3.5-17.0) ng/L B-Natriuretic Peptide 82 (<100) pg/mL Total Protein 6.0 L (6.5-8.0) g/dL Albumin 3.3 L (3.5-5.0) g/dL Influenza Type A (PCR) NEGATIVE (Negative) Influenza Type B (PCR) NEGATIVE (Negative) RSV RNA Qual (PCR) NEGATIVE (Negative) SARS-CoV-2 RNA (RT-PCR) NEGATIVE (Negative) Discharge Plan Discharge Clinical Impression: Chronic hypoxic respiratory failure Patient Disposition: Admitted As Inpatient
[2024-11-05 17:50] LABS: MANUAL DIFF FLAG NO
[2024-11-05 17:50] LABS: ABG Base Excess 25.4 mmol/L; ABG HCO3 54 mmol/L (22-26); ABG pCO2 90 mmHg (32-45); ABG pH 7.38 (7.35-7.45); ABG pO2 74 mmHg (83-108)
[2024-11-05 18:03] LABS: Basophils Percent Auto 0.4 % (0-2); Eosinophils Absolute Auto 0.2 X10*3/uL (0.0-0.4); Eosinophils Percent Auto 3.2 % (0-4); Hematocrit 29.3 % (37.0-47.0); Hemoglobin 8.4 g/dl (12.0-16.0); Imm Gran Abs Auto 0.01 X10*3/uL (0.00-0.03); Imm Gran Pct Auto 0.2 % (0.0-0.4); Lymphocytes Absolute Auto 0.6 X10*3/uL (1.2-4.9); Lymphocytes Percent Auto 11.8 % (20-40); Mean Corpuscular HGB Conc 28.7 g/dl (31.0-35.0); Mean Corpuscular Hemoglobin 25.2 pg (27.0-33.0); Mean Platelet Volume 9.5 fL (9.4-12.3); Monocytes Absolute Auto 0.5 X10*3/uL (0.1-1.2); Monocytes Percent Auto 10.1 % (2-11); Neutrophils Absolute Auto 3.8 x10*3/uL (2.0-8.3); Neutrophils Percent Auto 74.3 % (45-73); Platelet Count 217 X10*3/uL (160-400); Red Blood Count 3.33 X10*6/uL (4.20-5.50); Red Cell Distribution Width 17.7 % (11.0-16.0); White Blood Count 5.1 X10*3/uL (4.8-10.8)
[2024-11-05 18:12] LABS: B Type Natriuretic Peptide 82 pg/mL (<100)
[2024-11-05 18:14] LABS: Alanine Aminotransferase < 6 U/L (0-31); Albumin Level 3.3 g/dL (3.5-5.0); Anion Gap 14 (12-20); Aspartate Amino Transferase 13 U/L (5-31); Bilirubin Total 0.3 mg/dL (0.0-1.0); Blood Urea Nitrogen 18 mg/dL (9-16); Carbon Dioxide 43 mmol/L (22-29); Chloride 93 mmol/L (96-108); Estimated Glomerular Filt Rate > 60; Glucose Random 173 mg/dL (60-115); Potassium 3.9 mmol/L (3.3-5.1); Sodium 146 mmol/L (135-145)
[2024-11-05 18:16] LABS: Troponin-I High Sensitivity 5.5 ng/L (<3.5-17.0)
[2024-11-05 18:19] LABS: Alkaline Phosphatase 111 U/L (39-117)
[2024-11-05 18:28] LABS: Influenza A PCR NEGATIVE (Negative); Influenza B PCR NEGATIVE (Negative); Resp Syncy Virus RNA Qual PCR NEGATIVE (Negative); SARS COV2 PCR INHOUSE NEGATIVE (Negative)
--- NOTE | 2024-11-05 18:33 | PC.RT ---
Pt in ED w/ hypercarbia, placed on bipap at this time. RT spent time educating pt and pt Hoa on importance of wearing prescribed bipap at home. Pt admits to only wearing bipap at night most of the time and not during the day. Pt advised to wear bipap during the day when taking naps or lounging. Pt has prescribed bipap and O2 at home through [facility] [place] from previous admission. Pt SAT goal 88-92%.
[2024-11-05 23:05] LABS: ABG Refer to POC result
[2024-11-06] VITALS (14 sets, daily range): BP systolic 113–169; BP diastolic 50–85; PULSE 63–82; RESP 16–24; TEMP 36.2–36.9; O2SAT 90–97
--- NOTE | 2024-11-06 00:44 | PC.NURSE ---
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 pt awaiting for disposition.
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
[2024-11-06] MEDS: methylPREDNISolone Sod Succ 40 MG/ML VIAL IVPUSH ×4 (01:19→18:28)
[2024-11-06] MEDS: Azithromycin 500 MG TABLET PO ×2 (01:19→21:22)
[2024-11-06] MEDS: Furosemide 20 MG/2 ML VIAL IVPUSH ×2 (01:47→09:46)
[2024-11-06] MEDS: Enoxaparin Sodium 40 MG/0.4 ML SYRINGE SUBCUT ×2 (01:49→14:08)
[2024-11-06] MEDS: acetaZOLAMIDE 250 MG TABLET PO (03:24)
[2024-11-06] MEDS: oxyCODONE HCl Immed Release 5 MG TABLET 20 MG PO ×5 (04:03→21:21)
--- NOTE | 2024-11-06 04:07 | PC.NURSE ---
This blurb writer assumed care of this Pt at 0300. Pt A&Ox3. Placed on Bipap by RT. Pt reports she takes 20mg of oxycodone 5x daily, provided Ramona made aware, placed order for 6am. Pt requesting med michelle, provider approved early emt paramedic.
[2024-11-06 04:52] LABS: Basophils Percent Auto 0.4 % (0-2); Eosinophils Absolute Auto 0.1 X10*3/uL (0.0-0.4); Eosinophils Percent Auto 1.6 % (0-4); Hematocrit 29.1 % (37.0-47.0); Hemoglobin 8.2 g/dl (12.0-16.0); Imm Gran Abs Auto 0.01 X10*3/uL (0.00-0.03); Imm Gran Pct Auto 0.2 % (0.0-0.4); Lymphocytes Absolute Auto 0.4 X10*3/uL (1.2-4.9); Lymphocytes Percent Auto 7.2 % (20-40); MANUAL DIFF FLAG NO; Mean Corpuscular HGB Conc 28.2 g/dl (31.0-35.0); Mean Corpuscular Hemoglobin 24.8 pg (27.0-33.0); Mean Corpuscular Volume 88.2 fL (80.0-98.0); Mean Platelet Volume 9.9 fL (9.4-12.3); Monocytes Absolute Auto 0.2 X10*3/uL (0.1-1.2); Monocytes Percent Auto 3.5 % (2-11); Neutrophils Absolute Auto 4.2 x10*3/uL (2.0-8.3); Neutrophils Percent Auto 87.1 % (45-73); Platelet Count 234 X10*3/uL (160-400); Red Cell Distribution Width 17.6 % (11.0-16.0); White Blood Count 4.9 X10*3/uL (4.8-10.8)
[2024-11-06 05:16] LABS: Alanine Aminotransferase < 6 U/L (0-31); Albumin Level 3.2 g/dL (3.5-5.0); Alkaline Phosphatase 106 U/L (39-117); Anion Gap 14 (12-20); Aspartate Amino Transferase 13 U/L (5-31); Bilirubin Total 0.2 mg/dL (0.0-1.0); Blood Urea Nitrogen 16 mg/dL (9-16); Carbon Dioxide 40 mmol/L (22-29); Chloride 95 mmol/L (96-108); Creatinine Clr Calc Pharmacy 97.8; Estimated Glomerular Filt Rate > 60; Glucose Random 210 mg/dL (60-115); Potassium 3.7 mmol/L (3.3-5.1); Sodium 145 mmol/L (135-145); Total Protein 5.8 g/dL (6.5-8.0)
--- NOTE | 2024-11-06 07:32 | PC.NURSE ---
Pt agreeable to blood sugar checks, refusing insulin administration.
[2024-11-06] MEDS: 0.9 % Sodium Chloride Flush 3 ML SYRINGE IVFLUSH ×2 (07:34→18:28)
[2024-11-06 07:49] LABS: Glucose, Whole Blood 192 mg/dL (60-115)
[2024-11-06 07:52] LABS: ABG Base Excess 22.6 mmol/L; ABG HCO3 51 mmol/L (22-26); ABG pCO2 87 mmHg (32-45); ABG pH 7.37 (7.35-7.45); ABG pO2 77 mmHg (83-108)
--- NOTE | 2024-11-06 07:59 | PHA.MEDREC ---
Pharmacy Consult ? Medication Reconciliation Pharmacy has completed the medication reconciliation.Med rec complete, spoke to patient and patients, family member in room. Called [facility] pharmacy and compared claim history from [facility] pharmacy. Patient was previously taken off lisinopril but thinks she may need to restart this at some point I left it on her list but unconfirmed because she is not currently taking this. She attends a pain clinic at the [facility] and she was recently increased to oxycodone 20 mg 5 times a day as needed. She believes this is going to be her new dose though there has been a script since for percocet 10/325 5 times a day. Furosemide was also increased recently to 60 mg once a day. All other medications were compared and confirmed with pharmacy claim history and patient.
[2024-11-06 09:00] LABS: ABG Refer to POC result
--- NOTE | 2024-11-06 09:24 | PC.NURSE ---
Pt bladder scan 753 mL. Pt refused catheter, agreeable to straight cath. 725 mL of clear yellow urine drained, Pt tolerated okay.
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
[2024-11-06 11:36] LABS: Glucose, Whole Blood 228 mg/dL (60-115)
--- NOTE | 2024-11-06 13:50 | PM.EVENT ---
Event Note Date of Service: 11/06/24 Event Note: Chart reviewed patient examined agree with H&P as outlined. Discussed with Cardiology Time Spent With Patient Time: Total time managing care of this patient today ____ minutes.
--- NOTE | 2024-11-06 14:57 | MHC.CM.PN ---
PT REPORTS SHE LIVES WITH HER AND REQUIRES ASSISTANCE WITH CARE SHE HAS A DIGITAL ACCOUNT COORDINATOR 19 HOURS PER WEEK AND IS ACTIVE WITH [facility] SHE HAS A SCOOTER, WALKER, COMMODE, SHOWER CHAIR, HOSPITAL BED, OXYGEN AND A NON-INVASIVE VENT AT HOME PROVIDED BY ANN HCP ON FILE PCP: ANUJA WALLACE IMM DELIVERED DCP: [facility] TO TRANSPORT
--- NOTE | 2024-11-06 15:05 | HO.WOUND ---
Wound Consult: Initial 64yr old?[place] [facility] [place] 00:49 - See progress notes and H&P for detailed history.? Wound consult placed for Right Axilla.? Patient agreeable to assessment and photo documentation. Reports WILBER has been treating at home every other day with NitroPCR. Right Axilla Right Axilla Etiology: I & D site Measurements: 1cm x 1cm x 1.2cm Wound Bed: clean pink moist wound bed Drainage / Odor: thin nava yellow drainage drainage - Foul Odor noted Edges: ? well defined Jossie wound: Adhesive related skin injury Pain: tenderness noted Goals of Treatment: ? Durafiber packing for moisture management Recommendations: 1. Turn and Reposition every 2 hours and as needed for patient comfort.? Use pillows or wedges to support off loading positions. 2. Off Load all bony prominences with use of pillows and heel boots if needed.? Apply Preventative foams where needed. ? 3. Monitor for incontinence and moisture control, use barrier creams when needed for prevention and treatment. 4. Provide adequate and supplemental nutrition.? 5. Continue low air loss mattress. 6. When applicable maintain blood glucose levels per Providers order. 7. Perineal Area and buttock - Off Load Pressure with Q2 hr turns and use of pillows - Cleanse with PH balance spray or wipes, pat dry. ?Apply thin layer of barrier cream to affected area.? Apply twice daily and Reapply thin layer PRN after each episode of incontinence. 8. Bridge of nose - Apply skin prep be sure to avoid eyes. Allow to dry. Cover bridge of nose with Mepilex Lite when BiPAP is in use. 9. Right Axilla - Cleanse and irrigate with NS, Pat dry.? Apply antifungal powder dust off excess followed by skin prep to seal in place, lightly pack with Durafiber AG, be sure to leave a wick to easy removal.? Cover with dry dressing.? Change daily while inpatient then every other day at home. Re-consult wound care Nurse for wound deterioration or wound changes.
--- NOTE | 2024-11-06 16:45 | PM.CNPUL ---
History of Present Illness History of Present Illness Consult date: 11/06/24 Chief complaint: COPD exacerbation Narrative: This is an inpatient pulmonary consultation. The patient is a 64-year-old female with a past medical history of HTN, HLD, dm, COPD, chronic respiratory failure on 3-4 L of home oxygen, chronic low back pain, history of herpes zoster, Crohn's disease, anxiety, depression, PTSD, anemia, ALEKSEY on BiPAP for 16 hours a day; Pickwickian syndrome; HFpEF, recent admission to the hospital for acute COPD exacerbation-presented to the hospital today with a chief complaint of shortness of breath.To note that her BIPAP was changed for an Astral AVAP in the last few weeks and she had a hard time tolerating it due to the pressure settings. In the ER team, patient on presentation noted to be hypoxic, but not tachypneic; speaks in full sentences. Not in respiratory distress. Patient's blood gas showed pH of 7.38, pCO2 of 92; placed on BiPAP. Given nebulizations. Review of Systems Constitutional: Constitutional: Reports lethargy, Reports stops breathing during sleep and Reports weakness Eyes: Eyes: Reports no additional eye complaints Cardiovascular: Cardiovascular: Denies chest pain, Denies rapid heart rate, Denies leg edema, Denies lightheadedness, Denies Loss of Consciousness, Denies palpitations and Reports dyspnea on exertion Respiratory: Respiratory: Reports dyspnea on exertion, Reports wheezing and Reports other (Altered mental status) Gastrointestinal: Gastrointestinal: Reports other Musculoskeletal: Musculoskeletal: Reports no additional musculoskeletal complaints Integumentary/Breasts: Skin/Breast: Reports system reviewed and no additional complaints, except as docu Neurologic: Reports weakness Endocrine: Endocrine: Denies palpitations Allergic/Immunologic: Allergic/Immunologic: Reports wheezing [facility] Past Medical History Medical History (Updated 11/06/24 @ 16:48 by Eusebio Farrar MD) COPD (chronic obstructive pulmonary disease) Influenza A Sepsis Acute on chronic heart failure with preserved ejection fraction (HFpEF) Acute exacerbation of chronic obstructive pulmonary disease BMI 50.0-59.9, adult VERN (acute kidney injury) Enterococcus faecalis infection MSSA (methicillin susceptible Staphylococcus aureus) MRSA (methicillin resistant staph aureus) culture positive Encounter for management of wound VAC Chronic osteomyelitis Hypertension Iron deficiency anemia COPD (chronic obstructive pulmonary disease) Femur fracture Crohn's colitis Morbid obesity due to excess calories Closed tibia fracture Acute on chronic respiratory failure with hypoxia and hypercapnia Nonrheumatic mitral (valve) stenosis Paroxysmal atrial fibrillation Dyspnea Hypoventilation associated with obesity Pickwickian syndrome Chronic hypercapnic respiratory failure Opioid use disorder Family History Family History Other Adopted Surgical History Surgical History Status post incision and drainage Hx of cholecystectomy History of open reduction and internal fixation (ORIF) procedure Status post open reduction and internal fixation (ORIF) of fracture Recent surgical procedure on lower extremity Social History Social History Household Members: Significant Other Household Members Other:: , Hoa. Daughter Carolyn, 21. Daughter's Boyfriend, 22. Susanna, 21 Housing: House Do you presently have visiting nurse or other home services: Yes Alcohol intake: never Comment: COUNTS CORRECT Patient Tobacco Use Status: Former Tobacco user Years Smoked: 25 Smoked in Last 30 Days: No e-Cigarette/Vaping Use: Never Used Patient Interested in Nicotine Replacement: No Patient Given Instructions on How to Stop Smoking: No Second Hand Smoke Exposure: No Use of substances other than those prescribed or required for medical reasons: No Currently Displaying Signs/Symptoms of Drug Intoxication Withdrawal: No Any prior treatment program specific to substance use: No Have you been hit, kicked, punched, or otherwise hurt by someone within the past year? If so, by whom?: No Do you feel safe in your current relationship?: Yes Is there a partner from a previous relationship who is making you feel unsafe now?: No Are you made to feel afraid or neglected: No Advance Directives: Yes Advance Directives on File: Yes Advance Directives Date on File: 12/16/20 Do you have a plan to hurt others: No Plan Recently lost weight without trying: No Eating poorly because of decreased appetite: No Nutrition Risks: No Nutritional Risk Patient : No : No Poor oral hygiene: No service: No Current occupational status: disabled Cognitive needs: No Hearing needs: No Vision needs: Yes Meds Allergies Allergy/AdvReac Type Severity Reaction Status Date / Time gabapentin Allergy Mild Anxiety Verified 11/05/24 17:13 morphine [MORPHINE] Allergy Unknown ANAPHALAXIS, Verified 11/05/24 17:13 anaphylaxis propofol [From Diprivan] Allergy Anaphylaxis Verified 11/05/24 17:13 Active Medications: Current Medications Acetaminophen (Acetaminophen 325 Mg Tablet) 650 mg PO Q6H PRN PRN Reason: Pain, Mild 1-3,fever,headache Albuterol Sulfate (Albuterol Sulfate 90 Mcg 8 Gm Inhaler) 4 puff INHALE RQ4H WHILE AWAKE [facility] Last Admin: 11/06/24 15:28 Dose: Not Given Albuterol/Ipratropium (Albuterol/Iprat 2.5/0.5mg 3 Ml Ampul.Neb) 3 ml INHALE RQ4H WHILE AWAKE PRN PRN Reason: Shortness of Breath Azithromycin (Azithromycin 500 Mg Tablet) 500 mg PO BEDTIME [facility] Last Admin: 11/06/24 01:19 Dose: 500 mg Calcium Carbonate (Calcium Carbonate 750 Mg Tab.Chew) 750 mg PO Q4H PRN PRN Reason: Heartburn Dextrose (Dextrose 50 % 25 Gm/50 Ml Syringe) 25 gm IVPUSH Q15M PRN; Protocol PRN Reason: per Hypoglycemia Standing Ord. Enoxaparin Sodium (Enoxaparin Sodium 40 Mg/0.4 Ml Syringe) 40 mg SUBCUT Q12H [facility] Last Admin: 11/06/24 14:08 Dose: 40 mg Furosemide (Furosemide 20 Mg/2 Ml Vial) 20 mg IVPUSH DAILY [facility]; Protocol Last Admin: 11/06/24 09:46 Dose: 20 mg Glucose (Glucose Gel 15 Gm Gel..Gram.) 15 gm PO Q15M PRN; Protocol PRN Reason: per Hypoglycemia Standing Ord. Insulin Human Lispro (Insulin Lispro 100 Unit/Ml 3 Ml Vial) 0 unit SUBCUT QIDACHS [facility]; Protocol Last Admin: 11/06/24 11:45 Dose: Not Given Magnesium Hydroxide (Milk Of Magnesia 30 Ml Oral.Susp) 30 ml PO DAILY PRN PRN Reason: Constipation Melatonin (Melatonin 3 Mg Tablet) 6 mg PO BEDTIME PRN PRN Reason: Insomnia Methylprednisolone Sodium Succinate (Methylprednisolone Sod Succ 40 Mg/Ml Vial) 40 mg IVPUSH Q6H [facility] Last Admin: 11/06/24 14:08 Dose: 40 mg Oxycodone HCl (Oxycodone Hcl Immed Release 5 Mg Tablet) 20 mg PO 5XD [facility] Last Admin: 11/06/24 14:08 Dose: 20 mg Sodium Chloride (0.9 % Sodium Chloride Flush 3 Ml Syringe) 3 ml IVFLUSH QSHIFT [facility] Last Admin: 11/06/24 07:34 Dose: 3 ml Home Medications ?Medication ?Instructions ?Recorded ?Confirmed ?Last Taken ?Type fluticasone fur. 100 mcg-umeclid 1 ea inhalation DAILY 04/24/24 11/06/24 11/05/24 History 62.5 mcg-vilant 25 mcg inhalat.powder (Trelegy Ellipta) cholecalciferol (vitamin D3) 50 50 mcg PO DAILY 05/21/24 11/06/24 10/07/24 History mcg (2,000 unit) tablet clonazepam 0.5 mg tablet 0.5 mg PO BID PRN Anxiety 05/21/24 11/06/24 10/07/24 History temazepam 30 mg capsule 30 mg PO BEDTIME PRN Sleep 05/21/24 11/06/24 10/07/24 History acetaminophen 500 mg tablet 1,000 mg PO TID PRN Pain 09/28/24 11/06/24 10/07/24 History clonazepam 1 mg tablet 1 mg PO DAILY 09/28/24 11/06/24 10/07/24 History omeprazole 20 mg tablet,delayed 20 mg PO DAILY@0630 09/28/24 11/06/24 11/05/24 History release atorvastatin 80 mg tablet 80 mg PO DAILY 10/08/24 11/06/24 11/05/24 History buprenorphine HCl 2 mg sublingual 4 mg sublingual Q6H PRN Pain 11/06/24 11/06/24 Unknown History tablet (Scale Score 7-10) furosemide 20 mg tablet 60 mg PO DAILY 11/06/24 11/06/24 Unknown History oxycodone 5 mg tablet 20 mg PO 5XD PRN Pain (Scale Score 11/06/24 11/06/24 Unknown History 4-6) pregabalin 50 mg capsule 50 mg PO BID 11/06/24 11/06/24 Unknown History Physical Exam Vital Signs: Vital Signs: Last Vital Signs Temp 97.6 F 11/06/24 15:42 Pulse 71 11/06/24 15:42 Resp 19 11/06/24 16:25 BP 169/72 H 11/06/24 15:42 Pulse Ox 94 11/06/24 15:42 O2 Del Method Nasal Cannula 11/06/24 15:42 O2 Flow Rate 5 11/06/24 15:42 Oxygen Flow Rate 4 11/05/24 17:12 BMI result Body Mass Index 54.1 Const: General: cooperative, comfortable, alert and awake Nutritional Appearance: obese Orientation/consciousness: patient oriented x3 HEENT: Head: Yes normocephalic and Yes atraumatic Neck: Neck: Yes trachea midline, Yes supple and Yes no JVD Resp: Effort & Inspection: decreased respiratory effort Auscultation: wheezes and diminished lung sounds Cardio: Jugular venous distension: no JVD Rate: regular rate Rhythm: regular rhythm Heart sounds: S1 normal heart sound present, S2 normal heart sound present, no click, no gallops and no murmurs GI: Inspection: Yes obesity Auscultation: normal bowel sounds Skin: General skin exam: no rashes or lesions noted Neuro: General: patient oriented x3 and no focal motor deficits Extrem: General: No clubbing, No cyanosis, No edema and Yes venous stasis dermatitis Results Laboratory Findings 11/06/24 04:40 11/06/24 04:40 Abnormal lab findings: Abnormal Labs 11/05/24 11/05/24 11/06/24 17:44 17:46 04:40 RBC 3.33 L D 3.30 L Hgb 8.4 L D 8.2 L Hct 29.3 L 29.1 L MCH 25.2 L 24.8 L MCHC 28.7 L 28.2 L RDW 17.7 H 17.6 H Neut % (Auto) 74.3 H 87.1 H Lymph % (Auto) 11.8 L 7.2 L Lymph # (Auto) 0.6 L 0.4 L ABG pCO2 at Pt Temp 90 H* ABG pO2 at Pt Temp 74 L ABG HCO3 54 H Sodium 146 H Chloride 93 L 95 L Carbon Dioxide 43 H* 40 H* BUN 18 H POC Glucose Random Glucose 173 H 210 H Total Protein 6.0 L 5.8 L Albumin 3.3 L 3.2 L 11/06/24 11/06/24 11/06/24 07:01 07:48 11:30 RBC Hgb Hct MCH MCHC RDW Neut % (Auto) Lymph % (Auto) Lymph # (Auto) ABG pCO2 at Pt Temp 87 H* ABG pO2 at Pt Temp 77 L ABG HCO3 51 H Sodium Chloride Carbon Dioxide BUN POC Glucose 192 H 228 H Random Glucose Total Protein Albumin Assessment and Plan (1) Acute and chronic respiratory failure with hypercapnia: Status: Acute (2) COPD (chronic obstructive pulmonary disease): Qualifiers: COPD type: COPD with acute exacerbation Qualified Code(s): J44.1 - Chronic obstructive pulmonary disease with (acute) exacerbation Status: Acute Plan Continue oxygen supplementation to maintain a pulse ox above 88%-95% Continue respiratory therapy Switch BiPAP to AVAP [id number], epap 8 rr 15 VT 450 on 4 l O2, will monitor her pulmonary mechanics and also her blood gas while on the AVAP therapy. Repeat chest x-ray and blood gas in the morning Diuresis as tolerated Procedures Date of Service Date of Service: 11/06/24
[2024-11-06] MEDS: clonazePAM 1 MG TABLET PO (22:02)
[2024-11-07] MEDS: methylPREDNISolone Sod Succ 40 MG/ML VIAL IVPUSH ×4 (00:10→18:28)
[2024-11-07] MEDS: 0.9 % Sodium Chloride Flush 3 ML SYRINGE IVFLUSH ×4 (00:10→22:02)
[2024-11-07] MEDS: Enoxaparin Sodium 40 MG/0.4 ML SYRINGE SUBCUT ×2 (02:47→14:38)
[2024-11-07 03:26] VITALS: BP 120/56; PULSE 76; RESP 16; TEMP 36.9; O2SAT 96
[2024-11-07] MEDS: oxyCODONE HCl Immed Release 5 MG TABLET 20 MG PO ×4 (06:05→21:53)
[2024-11-07 07:33] LABS: Glucose, Whole Blood 270 mg/dL (60-115)
[2024-11-07 07:49] VITALS: BP 156/53; PULSE 80; RESP 19; TEMP 36.3; O2SAT 90
[2024-11-07] MEDS: Insulin Lispro 100 UNIT/ML 3 ML VIAL SUBCUT ×3 (08:11→22:00)
[2024-11-07] MEDS: Furosemide 20 MG/2 ML VIAL IVPUSH (08:12)
--- NOTE | 2024-11-07 09:10 | P.PNPL_ITS ---
Subjective Subjective Date of Service: 11/07/24 Interval history: The patient was seen on exam. She did tolerate her astral last night. She had issues with the humidification being too warm. Then they were concerned that it tipped over. They will what like more information about how to use the astral. Will request that information from [facility] to be able to give her additional information about the noninvasive ventilator. Seems like the current settings are better. She tolerated the noninvasive ventilator at nighttime well. She is using it this morning as well. We are still waiting for blood gas. But at this point will keep her on a small dose of Diamox for few days to try to help her acid-base status. Objective Data Labs 11/06/24 04:40 11/06/24 04:40 Labs: Laboratory Results - last 24 hr 11/06/24 11/07/24 11:30 06:55 POC Glucose 228 H 270 H Review of Systems Constitutional: Reports lethargy, Reports stops breathing during sleep and Reports weakness Eyes: Reports no additional eye complaints Cardiovascular: Denies chest pain, Denies rapid heart rate, Denies leg edema, Denies lightheadedness, Denies Loss of Consciousness, Denies palpitations and Reports dyspnea on exertion Respiratory: Reports dyspnea on exertion, Reports wheezing and Reports other (Altered mental status) Gastrointestinal: Reports other Musculoskeletal: Reports no additional musculoskeletal complaints Skin/Breast: Reports system reviewed and no additional complaints, except as docu Reports weakness Endocrine: Denies palpitations Allergic/Immunologic: Reports wheezing Physical Exam 2 Vital Signs: Vital Signs: Last Vital Signs Temp 97.4 F 11/07/24 07:49 Pulse 80 11/07/24 07:49 Resp 19 11/07/24 07:49 BP 156/53 H 11/07/24 07:49 Pulse Ox 90 L 11/07/24 07:49 O2 Del Method Nasal Cannula 11/07/24 07:49 O2 Flow Rate 1 11/07/24 07:49 Oxygen Flow Rate 4 11/05/24 17:12 BMI result Body Mass Index 54.1 Const: General: cooperative, comfortable, alert and awake Nutritional Appearance: obese Orientation/consciousness: patient oriented x3 HEENT: Head: Yes normocephalic and Yes atraumatic Neck: Neck: Yes trachea midline, Yes supple and Yes no JVD Resp: Effort & Inspection: decreased respiratory effort Auscultation: no wheezes and diminished lung sounds Cardio: Jugular venous distension: no JVD Rate: regular rate Rhythm: r egular rhythm Heart sounds: S1 normal heart sound present, S2 normal heart sound present, no click, no gallops and no murmurs GI: Inspection: Yes obesity Auscultation: normal bowel sounds Skin: General skin exam: no rashes or lesions noted Neuro: General: patient oriented x3 and no focal motor deficits Extrem: General: No clubbing, No cyanosis, No edema and Yes venous stasis dermatitis Procedures Date of Service Date of Service: 11/07/24 Assessment and Plan Assessment and plan (1) COPD (chronic obstructive pulmonary disease): Problem details: ex smoker quit 2019 Status: Acute (2) Acute and chronic respiratory failure with hypercapnia: Status: Acute (3) Hypoventilation associated with obesity: Status: Acute (4) Pickwickian syndrome: Status: Acute Plan continue AVAP: min [id number], EPAP 6-10 VT 450 RR15 Continue respiratory therapy Diuresis as tolerated Titrate oxygen to maintain a pulse ox between 89-95% Continue the Diamox daily for few days as we closely follow her blood gases Time Spent With Patient Time: Total time managing care of this patient today ____ minutes. Progress Note: Quality Stroke Does the patient have a stroke diagnosis?: No
[2024-11-07 09:37] LABS: VBG Base Excess 23.6 mmol/L; VBG HCO3 53 mmol/L (22-26); VBG pCO2 87 mmHg; VBG pH 7.39 (7.32-7.43); VBG pO2 52 mmHg
[2024-11-07 09:43] LABS: Venous Blood Gas Refer to POC result
[2024-11-07] MEDS: acetaZOLAMIDE 250 MG TABLET PO (09:57)
[2024-11-07 11:26] LABS: Venous Blood Gas Refer to POC result
[2024-11-07 11:35] VITALS: BP 143/66; PULSE 74; RESP 19; TEMP 36.7; O2SAT 95
--- NOTE | 2024-11-07 15:18 | HO.PM.IMPN ---
Subjective Subjective Date of Service: 11/07/24 Interval History: Essentially no change overnight. Compliance remains an issue Review of Systems Denies chest pain Denies shortness of breath Denies nausea vomiting diarrhea Denies fever chills Physical Exam Vital Signs: Vital Signs: Last Vital Signs Temp 98.0 F 11/07/24 11:35 Pulse 74 11/07/24 11:35 Resp 19 11/07/24 11:35 BP 143/66 H 11/07/24 11:35 Pulse Ox 95 11/07/24 11:35 O2 Del Method Nasal Cannula 11/07/24 11:35 O2 Flow Rate 1 11/07/24 11:35 Oxygen Flow Rate 4 11/05/24 17:12 BMI result Body Mass Index 54.1 Const: Other: Awake alert no acute distress Resp: Other: Clear to auscultation all cerna no rales rhonchi or wheezes Cardio: Other: No S4; positive S1-S2; no S3 murmurs rubs or gallops GI: Other: Soft nontender nondistended normoactive bowel sounds Extrem: Other: No edema bilaterally Objective Data Active Medications Acetaminophen (Acetaminophen 325 Mg Tablet) 650 mg PO Q6H PRN PRN Reason: Pain, Mild 1-3,fever,headache Acetazolamide (Acetazolamide 250 Mg Tablet) 250 mg PO DAILY [facility] Stop: 11/09/24 09:01 Last Admin: 11/07/24 09:57 Dose: 250 mg Documented By: BETHANIE Albuterol Sulfate (Albuterol Sulfate 90 Mcg 8 Gm Inhaler) 4 puff INHALE RQ4H WHILE AWAKE [facility] Last Admin: 11/07/24 11:29 Dose: Not Given Documented By: ROCAEL Non-Admin Reason: Patient Refused Albuterol/Ipratropium (Albuterol/Iprat 2.5/0.5mg 3 Ml Ampul.Neb) 3 ml INHALE RQ4H WHILE AWAKE PRN PRN Reason: Shortness of Breath Azithromycin (Azithromycin 500 Mg Tablet) 500 mg PO BEDTIME [facility] Last Admin: 11/06/24 21:22 Dose: 500 mg Documented By: STACEY Calcium Carbonate (Calcium Carbonate 750 Mg Tab.Chew) 750 mg PO Q4H PRN PRN Reason: Heartburn Dextrose (Dextrose 50 % 25 Gm/50 Ml Syringe) 25 gm IVPUSH Q15M PRN; Protocol PRN Reason: per Hypoglycemia Standing Ord. Enoxaparin Sodium (Enoxaparin Sodium 40 Mg/0.4 Ml Syringe) 40 mg SUBCUT Q12H [facility] Last Admin: 11/07/24 14:38 Dose: 40 mg Documented By: BETHANIE Furosemide (Furosemide 20 Mg/2 Ml Vial) 20 mg IVPUSH DAILY [facility]; Protocol Last Admin: 11/07/24 08:12 Dose: 20 mg Documented By: BETHANIE Glucose (Glucose Gel 15 Gm Gel..Gram.) 15 gm PO Q15M PRN; Protocol PRN Reason: per Hypoglycemia Standing Ord. Insulin Human Lispro (Insulin Lispro 100 Unit/Ml 3 Ml Vial) 0 unit SUBCUT QIDACHS [facility]; Protocol Last Admin: 11/07/24 12:52 Dose: Not Given Documented By: BETHANIE Non-Admin Reason: patient refused POC testing. Magnesium Hydroxide (Milk Of Magnesia 30 Ml Oral.Susp) 30 ml PO DAILY PRN PRN Reason: Constipation Melatonin (Melatonin 3 Mg Tablet) 6 mg PO BEDTIME PRN PRN Reason: Insomnia Methylprednisolone Sodium Succinate (Methylprednisolone Sod Succ 40 Mg/Ml Vial) 40 mg IVPUSH Q6H [facility] Last Admin: 11/07/24 13:36 Dose: 40 mg Documented By: BETHANIE Oxycodone HCl (Oxycodone Hcl Immed Release 5 Mg Tablet) 20 mg PO 5XD [facility] Last Admin: 11/07/24 14:35 Dose: 20 mg Documented By: BETHANIE Sodium Chloride (0.9 % Sodium Chloride Flush 3 Ml Syringe) 3 ml IVFLUSH QSHIFT [facility] Last Admin: 11/07/24 08:14 Dose: 3 ml Documented By: BETHANIE Labs 11/06/24 04:40 11/06/24 04:40 Labs: Laboratory Results - last 24 hr 11/07/24 11/07/24 06:55 09:21 VBG pH 7.39 VBG pCO2 87 VBG pO2 52 VBG HCO3 53 H VBG O2 Saturation 80.0 VBG Base Excess 23.6 POC Glucose 270 H Assessment and Plan (1) Acute and chronic respiratory failure with hypercapnia: Status: Acute (2) DM type 2 (diabetes mellitus, type 2): Status: Acute Plan 64-year-old female with a past medical history of HTN, HLD, dm, COPD, chronic respiratory failure on 3-4 L of home oxygen, chronic low back pain, history of herpes zoster, Crohn's disease, anxiety, depression, PTSD, anemia, ALEKSEY on BiPAP for 16 hours a day; Pickwickian syndrome; HFpEF, recent admission to the hospital for acute COPD exacerbation-presented to the hospital today with a chief complaint of shortness of breath. Noted to be in acute COPD exacerbation. 1. Acute exacerbation of COPD/hypercapnic respiratory failure -continue BiPAP when sleeping and napping. -DuoNebs q.4 hours p.r.n. -methylprednisolone 60 mg q.6 hours -Diamox daily as per Pulmonary 2.HFpEF -stable and well compensated -continue current therapies 3. Diabetes type 2 -acceptable control on current therapies -lispro correctional scale -adjust as indicated 4. Hypertension -acceptable control on current therapies -adjust as indicated Lovenox Full code Quality Stroke Does the patient have a stroke diagnosis?: No VTE Prior VTE?: No VTE Risk Level:: Medical - moderate - high VTE Device Contraindication: Treatment Not Indicated VTE Drug Contraindication: N/A - Med Ordered
[2024-11-07 15:25] VITALS: PULSE 77; RESP 18; TEMP 36.3
[2024-11-07 16:12] LABS: Glucose, Whole Blood 239 mg/dL (60-115)
[2024-11-07 20:00] VITALS: BP 167/71; PULSE 52; RESP 18; TEMP 36; O2SAT 98
[2024-11-07] MEDS: Azithromycin 500 MG TABLET PO (21:54)
[2024-11-07 22:00] LABS: Glucose, Whole Blood 220 mg/dL (60-115)
[2024-11-07 23:41] VITALS: BP 137/63; PULSE 74; RESP 16; TEMP 36.3; O2SAT 90
[2024-11-08] MEDS: methylPREDNISolone Sod Succ 40 MG/ML VIAL IVPUSH ×3 (01:54→13:56)
[2024-11-08] MEDS: Enoxaparin Sodium 40 MG/0.4 ML SYRINGE SUBCUT (01:54)
[2024-11-08 03:47] VITALS: BP 191/88; PULSE 86; RESP 16; TEMP 36.6; O2SAT 96
[2024-11-08] MEDS: oxyCODONE HCl Immed Release 5 MG TABLET 20 MG PO ×2 (05:39→10:49)
[2024-11-08 07:02] VITALS: BP 148/67; PULSE 53; RESP 18; TEMP 36.3; O2SAT 95
[2024-11-08 07:41] LABS: Glucose, Whole Blood 348 mg/dL (60-115)
[2024-11-08 08:11] LABS: VBG Base Excess 20.6 mmol/L; VBG HCO3 50 mmol/L (22-26); VBG pCO2 86 mmHg; VBG pH 7.37 (7.32-7.43); VBG pO2 37 mmHg
[2024-11-08 08:11] LABS: Basophils Percent Auto 0.1 % (0-2); Hematocrit 32.6 % (37.0-47.0); Hemoglobin 9.5 g/dl (12.0-16.0); Imm Gran Abs Auto 0.07 X10*3/uL (0.00-0.03); Imm Gran Pct Auto 0.8 % (0.0-0.4); Lymphocytes Absolute Auto 0.5 X10*3/uL (1.2-4.9); Lymphocytes Percent Auto 5.2 % (20-40); MANUAL DIFF FLAG SCAN; Mean Corpuscular HGB Conc 29.1 g/dl (31.0-35.0); Mean Corpuscular Hemoglobin 24.9 pg (27.0-33.0); Mean Corpuscular Volume 85.3 fL (80.0-98.0); Mean Platelet Volume 10.2 fL (9.4-12.3); Monocytes Absolute Auto 0.2 X10*3/uL (0.1-1.2); Monocytes Percent Auto 2.7 % (2-11); Neutrophils Absolute Auto 8.2 x10*3/uL (2.0-8.3); Neutrophils Percent Auto 91.2 % (45-73); Platelet Count 344 X10*3/uL (160-400); Red Blood Count 3.82 X10*6/uL (4.20-5.50); Red Cell Distribution Width 17.2 % (11.0-16.0); SCAN SMEAR FLAG 1
[2024-11-08 08:12] LABS: Venous Blood Gas Refer to POC result
[2024-11-08] MEDS: Insulin Lispro 100 UNIT/ML 3 ML VIAL SUBCUT (08:13)
[2024-11-08] MEDS: 0.9 % Sodium Chloride Flush 3 ML SYRINGE IVFLUSH (08:14)
[2024-11-08 08:21] LABS: Alanine Aminotransferase 7 U/L (0-31); Albumin Level 3.5 g/dL (3.5-5.0); Alkaline Phosphatase 119 U/L (39-117); Anion Gap 11 (12-20); Aspartate Amino Transferase 11 U/L (5-31); Bilirubin Total 0.2 mg/dL (0.0-1.0); Blood Urea Nitrogen 29 mg/dL (9-16); Calcium 9.2 mg/dL (8.4-10.2); Carbon Dioxide 39 mmol/L (22-29); Chloride 96 mmol/L (96-108); Creatinine Clr Calc Pharmacy 69.1; Estimated Glomerular Filt Rate 52; Glucose Fasting 332 mg/dL (60-99); Potassium 4.3 mmol/L (3.3-5.1); Sodium 142 mmol/L (135-145); Total Protein 6.3 g/dL (6.5-8.0)
[2024-11-08 08:32] LABS: SLIDE REVIEW VERIFIED
[2024-11-08] MEDS: acetaZOLAMIDE 250 MG TABLET PO (10:44)
[2024-11-08] MEDS: Furosemide 20 MG/2 ML VIAL IVPUSH (10:45)
[2024-11-08 11:11] VITALS: BP 160/81; PULSE 62; RESP 17; TEMP 37.1; O2SAT 97
--- NOTE | 2024-11-08 11:28 | PM.PNPUL ---
Subjective Subjective Date of Service: 11/08/24 Interval history: The patient was seen on exam. She is tolerating the AVAP well. Her blood gases reassuring with her pCO2 slightly decreased. I do believe that we have to increase her minute ventilation to try to have a better response. Will increase from 5.5-6 L/min. The current AVAP settings are otherwise same. She is tolerating it with 3 L of oxygen which seems to be adequate. She will continue on Diamox today and hopefully she can be discharged tomorrow. Objective Data Labs 11/08/24 08:01 11/08/24 08:01 Labs: Laboratory Results - last 24 hr 11/07/24 11/07/24 11/08/24 16:03 21:55 07:37 WBC RBC Hgb Hct MCV MCH MCHC RDW Plt Count MPV Immature Gran % (Auto) Neut % (Auto) Lymph % (Auto) [place] % (Auto) Eos % (Auto) Baso % (Auto) Lymph # (Auto) [place] # (Auto) Eos # (Auto) Baso # (Auto) Abs Immat Gran (auto) Absolute Neuts (auto) Absolute Nucleated RBC Nucleated RBC % (auto) Smear Tech's Comments VBG pH VBG pCO2 VBG pO2 VBG HCO3 VBG O2 Saturation VBG Base Excess Sodium Potassium Chloride Carbon Dioxide Anion Gap BUN Creatinine Estim Creat Clear Calc Estimated GFR POC Glucose 239 H 220 H 348 H Fasting Glucose Calcium Total Bilirubin AST ALT Alkaline Phosphatase Total Protein Albumin 11/08/24 11/08/24 08:01 08:07 WBC 9.0 RBC 3.82 L Hgb 9.5 L Hct 32.6 L MCV 85.3 MCH 24.9 L MCHC 29.1 L RDW 17.2 H Plt Count 344 D MPV 10.2 Immature Gran % (Auto) 0.8 H Neut % (Auto) 91.2 H Lymph % (Auto) 5.2 L [place] % (Auto) 2.7 Eos % (Auto) 0.0 Baso % (Auto) 0.1 Lymph # (Auto) 0.5 L [place] # (Auto) 0.2 Eos # (Auto) 0.0 Baso # (Auto) 0.0 Abs Immat Gran (auto) 0.07 H Absolute Neuts (auto) 8.2 Absolute Nucleated RBC 0.000 Nucleated RBC % (auto) 0.0 Smear Tech's Comments VERIFIED VBG pH 7.37 VBG pCO2 86 VBG pO2 37 VBG HCO3 50 H VBG O2 Saturation 55.0 VBG Base Excess 20.6 Sodium 142 Potassium 4.3 Chloride 96 Carbon Dioxide 39 H Anion Gap 11 L BUN 29 H Creatinine 1.06 Estim Creat Clear Calc 69.1 Estimated GFR 52 POC Glucose Fasting Glucose 332 H Calcium 9.2 Total Bilirubin 0.2 AST 11 ALT 7 Alkaline Phosphatase 119 H Total Protein 6.3 L Albumin 3.5 Review of Systems Constitutional: Reports lethargy Eyes: Reports no additional eye complaints Cardiovascular: Denies chest pain, Denies rapid heart rate, Denies leg edema, Denies lightheadedness, Denies Loss of Consciousness, Denies palpitations and Reports dyspnea on exertion Respiratory: Reports dyspnea on exertion, Reports wheezing and Reports other (Altered mental status) Gastrointestinal: Reports other Musculoskeletal: Reports no additional musculoskeletal complaints Skin/Breast: Reports system reviewed and no additional complaints, except as docu Endocrine: Denies palpitations Allergic/Immunologic: Reports wheezing Physical Exam Vital Signs: Vital Signs: Last Vital Signs Temp 98.7 F 11/08/24 11:11 Pulse 62 11/08/24 11:11 Resp 17 11/08/24 11:11 BP 160/81 H 11/08/24 11:11 Pulse Ox 97 11/08/24 11:11 O2 Del Method CPAP 11/08/24 11:11 O2 Flow Rate 1 11/07/24 11:35 Oxygen Flow Rate 4 11/05/24 17:12 BMI result Body Mass Index 54.1 Const: General: cooperative, comfortable, alert and awake Nutritional Appearance: obese Orientation/consciousness: patient oriented x3 HEENT: Head: Yes normocephalic and Yes atraumatic Neck: Neck: Yes trachea midline, Yes supple and Yes no JVD Resp: Effort & Inspection: decreased respiratory effort Auscultation: no wheezes and diminished lung sounds Cardio: Jugular venous distension: no JVD Rate: regular rate Rhythm: regular rhythm Heart sounds: S1 normal heart sound present, S2 normal heart sound present, no click, no gallops and no murmurs GI: Inspection: Yes obesity Auscultation: normal bowel sounds Skin: General skin exam: no rashes or lesions noted Neuro: General: patient oriented x3 and no focal motor deficits Extrem: General: No clubbing, No cyanosis, No edema and Yes venous stasis dermatitis Procedures Date of Service Date of Service: 11/08/24 Assessment and Plan Assessment and plan (1) COPD (chronic obstructive pulmonary disease): Problem details: ex smoker quit 2019 Status: Acute (2) Acute and chronic respiratory failure with hypercapnia: Status: Acute (3) Hypoventilation associated with obesity: Status: Acute (4) Pickwickian syndrome: Status: Acute Plan continue AVAP: min PS10-20, EPAP 6-10 VT 450 RR15, increased Ve 5.5 to 6L/min Continue respiratory therapy Diuresis as tolerated Titrate oxygen to maintain a pulse ox between 89-95% Continue the Diamox daily for few days as we closely follow her blood gases Bloodgas tomorrow Time Spent With Patient Time: Total time managing care of this patient today ____ minutes. Progress Note: Quality Stroke Does the patient have a stroke diagnosis?: No
--- NOTE | 2024-11-08 12:11 | P.DS_ITS ---
DS: Providers Provider Date of Service: 11/08/24 Date of admission: 11/06/24 00:49 Date of discharge: 11/08/24 Primary care physician: Sandra Diego MD Consults: 11/06/24 00:49 Consult to Pulmonology Routine Consulting Provider: [facility] [place] [facility] [place] [facility] Reason for consultation: end stage COPD 11/06/24 01:11 Consult to Cardiology Routine Consulting Provider: [facility] [place] [place] [facility] Reason for consultation: acute chf; ?parox afib- not on AC 11/06/24 12:14 Consult to Wound Care Routine Reason for consultation: right axillary abscess DS: Diagnosis Discharge Diagnosis (1) COPD (chronic obstructive pulmonary disease): Status: Acute (2) Acute and chronic respiratory failure with hypercapnia: Status: Acute (3) Hypoventilation associated with obesity: Status: Acute (4) Pickwickian syndrome: Status: Acute DS: Summary Hospital Course Hospital Course: 64-year-old female with a past medical history of HTN, HLD, dm, COPD, chronic respiratory failure on 3-4 L of home oxygen, chronic low back pain, history of herpes zoster, Crohn's disease, anxiety, depression, PTSD, anemia, ALEKSEY on BiPAP for 16 hours a day; Pickwickian syndrome; HFpEF, recent admission to the hospital for acute COPD exacerbation-presented to the hospital today with a chief complaint of shortness of breath. Most of history obtained from the patient, patient's healthcare proxy, ER team. Reportedly patient has been having shortness of breath over the past few days which has been gradually worsening with minimal activities. Patient's healthcare proxy mentioned that there has been confusion about how many L of oxygen comes to the compressor and not clear about the settings. Also unclear about how many hours of the BiPAP the patient needs to be on during the nighttime. Patient has been having increased shortness of breath. Denies having cough or fevers. Denies having any urinary symptoms. Denies any chest pain or palpitations. Review of all other systems is negative except mentioned above ER course: Per ER team, patient on presentation noted to be hypoxic, but not tachypneic; speaks in full sentences. Not in respiratory distress. Patient's blood gas showed pH of 7.38, pCO2 of 92; placed on BiPAP. Hospital Course Patient admitted to telemetry her monitor remained free from dysrhythmias. Her partner brought in her home BiPAP which she use. She was seen in consultation by pulmonology who adjusted her settings. MIN Ps 10-20;EPAP 6-10;Vt 450; RR 15;Ve 6L. Her Lasix was increased to 80 mg daily and she was given Diamox 250 daily. She remained stable and her VBG before acceptable. At this point in time she is medically acceptable for discharge on current settings in should follow up with her gasoline pump mechanic next available Time Attestation Discharge Coordination Time (in mins): 35 Quality: Safe Use of Opioids Does Pt have an Active Cancer Diagnosis on the Problem List?: No Quality: Stroke Does the patient have a stroke diagnosis?: No Physical Exam Vital Signs: Vital Signs: Last Vital Signs Temp 98.7 F 11/08/24 11:11 Pulse 62 11/08/24 11:11 Resp 17 11/08/24 11:11 BP 160/81 H 11/08/24 11:11 Pulse Ox 97 11/08/24 11:11 O2 Del Method CPAP 11/08/24 11:11 O2 Flow Rate 1 11/07/24 11:35 Oxygen Flow Rate 4 11/05/24 17:12 BMI result Body Mass Index 54.1 Const: Other: Awake alert no acute distress Resp: Other: Clear to auscultation all cerna no rales rhonchi or wheezes Cardio: Other: No S4; positive S1-S2; no S3 murmurs rubs or gallops GI: Other: Soft nontender nondistended normoactive bowel sounds Extrem: Other: No edema bilaterally DS: Data Data Completed and Pending Completed studies during hospitalization [Text1]: Procedures Assistance with Respiratory Ventilation, Less than 24 Consecutive Hours, Continuous Positive Airway Pressure (10/08/24) Drainage of Right Upper Arm Subcutaneous Tissue and Fascia, Open Approach (09/28/24) Insertion of Infusion Device into Left Cephalic Vein, Percutaneous Approach (02/19/22) Labs on day of discharge: Laboratory Results - last 24 hr 11/07/24 11/07/24 11/08/24 16:03 21:55 07:37 WBC RBC Hgb Hct MCV MCH MCHC RDW Plt Count MPV Immature Gran % (Auto) Neut % (Auto) Lymph % (Auto) [place] % (Auto) Eos % (Auto) Baso % (Auto) Lymph # (Auto) [place] # (Auto) Eos # (Auto) Baso # (Auto) Abs Immat Gran (auto) Absolute Neuts (auto) Absolute Nucleated RBC Nucleated RBC % (auto) Smear Tech's Comments VBG pH VBG pCO2 VBG pO2 VBG HCO3 VBG O2 Saturation VBG Base Excess Sodium Potassium Chloride Carbon Dioxide Anion Gap BUN Creatinine Estim Creat Clear Calc Estimated GFR POC Glucose 239 H 220 H 348 H Fasting Glucose Calcium Total Bilirubin AST ALT Alkaline Phosphatase Total Protein Albumin 11/08/24 11/08/24 08:01 08:07 WBC 9.0 RBC 3.82 L Hgb 9.5 L Hct 32.6 L MCV 85.3 MCH 24.9 L MCHC 29.1 L RDW 17.2 H Plt Count 344 D MPV 10.2 Immature Gran % (Auto) 0.8 H Neut % (Auto) 91.2 H Lymph % (Auto) 5.2 L [place] % (Auto) 2.7 Eos % (Auto) 0.0 Baso % (Auto) 0.1 Lymph # (Auto) 0.5 L [place] # (Auto) 0.2 Eos # (Auto) 0.0 Baso # (Auto) 0.0 Abs Immat Gran (auto) 0.07 H Absolute Neuts (auto) 8.2 Absolute Nucleated RBC 0.000 Nucleated RBC % (auto) 0.0 Smear Tech's Comments VERIFIED VBG pH 7.37 VBG pCO2 86 VBG pO2 37 VBG HCO3 50 H VBG O2 Saturation 55.0 VBG Base Excess 20.6 Sodium 142 Potassium 4.3 Chloride 96 Carbon Dioxide 39 H Anion Gap 11 L BUN 29 H Creatinine 1.06 Estim Creat Clear Calc 69.1 Estimated GFR 52 POC Glucose Fasting Glucose 332 H Calcium 9.2 Total Bilirubin 0.2 AST 11 ALT 7 Alkaline Phosphatase 119 H Total Protein 6.3 L Albumin 3.5 Discharge Plan Discharge Anticipated Discharge Date/Time: 11/08/24 11:56 Patient Disposition: Home Health Service Discharge Diagnosis: Hypercarbic respiratory failure in backdrop of COPD exacerbation Referrals: Sandra Diego MD [Primary Care Provider] - 1 Week Discharge Medications: New acetazolamide 250 mg Tablet 250 mg PO DAILY Qty: 7 0RF furosemide [Lasix] 80 mg tablet 80 mg PO DAILY Qty: 30 0RF prednisone 10 mg tablet See Rx Instructions .Route .COMPLEX Qty: 45 0RF Rx Instructions: 10 mg orally; 5 tabs p.o. daily x3 days; 4 tabs p.o. daily x3 days; 3 tabs daily x3 days; 2 tabs daily x3 days; 1 tab daily x3 days Continued diltiazem HCl 240 mg capsule,extended release 24 hr 240 mg PO DAILY Qty: 90 0RF Roque-24 400 mg capsule,extended release 24hr 400 mg PO DAILY Qty: 30 0RF clonazepam 0.5 mg Tablet 0.5 mg PO BID PRN (Reason: Anxiety) temazepam 30 mg Capsule 30 mg PO BEDTIME PRN (Reason: Sleep) cholecalciferol (vitamin D3) 50 mcg (2,000 unit) Tablet 50 mcg PO DAILY omeprazole 20 mg tablet,delayed release (DR/EC) 20 mg PO DAILY@0630 clonazepam 1 mg Tablet 1 mg PO DAILY acetaminophen 500 mg Tablet 1,000 mg PO TID PRN (Reason: Pain) oxycodone 5 mg Tablet 20 mg PO 5XD PRN (Reason: Pain (Scale Score 4-6)) pregabalin 50 mg Capsule 50 mg PO BID buprenorphine HCl 2 mg Tablet, Sublingual 4 mg SUBLINGUAL Q6H PRN (Reason: Pain (Scale Score 7-10)) Trelegy Ellipta 100-62.5-25 mcg blister with device 1 ea INHALATION DAILY atorvastatin 80 mg tablet 80 mg PO DAILY ferrous sulfate 324 mg (65 mg iron) Tablet,Delayed Release (Dr/Ec) 324 mg PO DAILY Qty: 30 0RF lisinopril 10 mg tablet 10 mg PO DAILY Qty: 90 0RF Discontinued furosemide 20 mg tablet 60 mg PO DAILY Discharge Orders: Discharge Order (Routine); Ordered 11/08/24 Ordered By: Kike Aquino Diet: Advance to usual diet Activity on Discharge: As tolerated Stand Alone Forms: Patient Portal Discharge page Print Language: Lithuanian Care Plan Goals: Continue all medications as taken prior to the hospital. You have been placed on Diamox 250 mg daily for 7 days. Your Lasix has been raised to 80 mg daily. You need to complete the prednisone taper as ordered Health Concerns: Your BiPAP has been adjusted. MinPs 10-20;EPAP 6-10;Vt 450;RR 15; Ve 6L. Continue home O2 as ordered Plan of Treatment: Follow up with the gasoline pump mechanic next available Assessment: See discharge summary
--- NOTE | 2024-11-08 13:06 | MHC.CM.PN ---
Pt. has been medically cleared for DC, she will go home via BLS and resume home care services from [facility].
== END 2024-11-08 16:25 | disposition home health service (06) | DRG 190 ==
LOC: HO.ED 18:11 → HO.EDOVER 11-06 00:58 → HO.IMC 11-06 07:29
PROVIDERS: Hospitalist; Physician Assistant Medical; Admitting Provider Hospitalist; Emergency Provider Emergency Medicine; PCP Internal Medicine; Visit Provider Hospitalist
DX: J44.1 Chronic obstructive pulmonary disease with (acute) exacerbation (principal); I50.33 Acute on chronic diastolic (congestive) heart failure; J96.21 Acute and chronic respiratory failure with hypoxia; J96.22 Acute and chronic respiratory failure with hypercapnia; F11.20 Opioid dependence, uncomplicated; E66.2 Morbid (severe) obesity with alveolar hypoventilation; Z68.43 Body mass index [BMI] 50.0-59.9, adult; E87.3 Alkalosis; I11.0 Hypertensive heart disease with heart failure; Z71.3 Dietary counseling and surveillance; F41.9 Anxiety disorder, unspecified; G89.4 Chronic pain syndrome; I48.0 Paroxysmal atrial fibrillation; M54.59 Other low back pain; Z20.822 Contact with and (suspected) exposure to COVID-19; Z99.81 Dependence on supplemental oxygen; Z87.891 Personal history of nicotine dependence; Z79.01 Long term (current) use of anticoagulants; Z79.899 Other long term (current) drug therapy
CPT/HCPCS: 0241U; 36415; 36600; 71045; 80053; 82803; 82947; 83735; 83880; 84484; 85025; 94660; 99285; J1650; J1940; J2919

== ENCOUNTER → 2024-11-05 17:15 | Outpatient (BNV) | payer MEDICARE, MEDICAID, SELFPAY | PROVIDERS: Emergency Provider Emergency Medicine; Visit Provider Radiology Diagnostic Radiology | DX: I51.7 Cardiomegaly (principal); J81.0 Acute pulmonary edema | CPT/HCPCS: 71045 ==

== ENCOUNTER 2024-11-06 00:49 | Outpatient (BNV) | payer MEDICARE, MEDICAID, SELFPAY | END 2024-11-07 08:00 | PROVIDERS: Admitting Provider Hospitalist; Emergency Provider Emergency Medicine; PCP Internal Medicine; Visit Provider Radiology Diagnostic Radiology | DX: I51.7 Cardiomegaly (principal) | CPT/HCPCS: 71045 ==

== ENCOUNTER → 2024-11-06 00:49 | Outpatient (BNV) | payer MEDICARE, MEDICAID, SELFPAY | PROVIDERS: Admitting Provider Hospitalist; Emergency Provider Emergency Medicine; PCP Internal Medicine; Visit Provider Internal Medicine Cardiovascular Disease | DX: J96.22 Acute and chronic respiratory failure with hypercapnia (principal) | CPT/HCPCS: 99222 ==

== ENCOUNTER → 2024-11-06 00:49 | Outpatient (BNV) | payer OTHER, MEDICARE, MEDICAID, SELFPAY | PROVIDERS: Admitting Provider Hospitalist; Emergency Provider Emergency Medicine; PCP Internal Medicine; Visit Provider Hospitalist | DX: J96.22 Acute and chronic respiratory failure with hypercapnia (principal); J44.1 Chronic obstructive pulmonary disease with (acute) exacerbation | CPT/HCPCS: 99223 ==

== ENCOUNTER → 2024-11-06 00:49 | Outpatient (BNV) | payer MEDICARE, MEDICAID, SELFPAY | PROVIDERS: Admitting Provider Hospitalist; Emergency Provider Emergency Medicine; PCP Internal Medicine; Visit Provider Hospitalist | DX: R06.02 Shortness of breath (principal) | CPT/HCPCS: 99223; 99232; 99239; 99499 ==

== ENCOUNTER → 2024-11-06 23:59 | Outpatient (BNV) | payer MEDICARE, MEDICAID, SELFPAY | PROVIDERS: PCP Internal Medicine; Visit Provider Internal Medicine | DX: J96.02 Acute respiratory failure with hypercapnia (principal); F11.20 Opioid dependence, uncomplicated; K50.90 Crohn's disease, unspecified, without complications | CPT/HCPCS: G0180 ==

== ENCOUNTER 2024-11-16 13:00 | Outpatient (RCR) | payer MEDICARE, MEDICAID, SELFPAY | END 2025-01-11 11:52 | disposition home or self-care (01) | LOC: HO.WCC 13:00 | PROVIDERS: PCP Internal Medicine; Visit Provider Surgery Surgical Oncology | DX: L02.411 Cutaneous abscess of right axilla (principal); I73.9 Peripheral vascular disease, unspecified; I10 Essential (primary) hypertension; E66.89 Other obesity not elsewhere classified; Z79.2 Long term (current) use of antibiotics; Z99.81 Dependence on supplemental oxygen; Z99.3 Dependence on wheelchair; Z87.891 Personal history of nicotine dependence; Z86.19 Personal history of other infectious and parasitic diseases | CPT/HCPCS: 97597; 99212; 99213 ==

== ENCOUNTER 2024-11-28 10:29 | Outpatient (AMB) | payer OTHER, MEDICAID, SELFPAY ==
--- NOTE | 2024-11-28 11:01 | MHC.OFFWIV ---
Intake Vital Signs 11/28/24 11:04 BMI Reason not done Patient refused/unable BP 136/80 Blood Pressure Location Lt brachial Position Sitting Pulse 75 Pulse Source Pulse Oximeter Pulse Oximetry (%) 96 Oxygen Delivery Method Nasal Cannula Intake Visit Reasons: EP-chest abscess Intake Note: Patient here for abscess on chest that she noticed this morning. Patient Tobacco Use Status: Former Tobacco user Allergies gabapentin Allergy (Mild, Verified 11/28/24 11:03) Anxiety morphine [MORPHINE] Allergy (Unknown, Verified 11/28/24 11:03) ANAPHALAXIS, anaphylaxis propofol [From Diprivan] Allergy (Verified 11/28/24 11:03) Anaphylaxis Do you need a note to return to daycare/school/sports/work: No HPI HPI Comments History of Present Illness Details This is a 64-year-old female with a past medical history of COPD currently oxygen dependent on 3 L via nasal cannula, atrial fibrillation not currently anticoagulated, hypertension, CHF and anemia presenting from home for evaluation of painful lesion on her left anterior chest wall that has been present since this morning. Patient states that she noted the lesion this morning, squeezed it and noted that pus was expressed. She denies having any fevers, chills and has not taken any medication for treatment of this lesion or used any topical agent. [facility] Medical History (Updated 11/28/24 @ 11:54 by Linette Hoyt PA-C) DM type 2 (diabetes mellitus, type 2) Shortness of breath Chronic hypoxic respiratory failure Pickwickian syndrome COPD (chronic obstructive pulmonary disease) Influenza A Sepsis Acute on chronic heart failure with preserved ejection fraction (HFpEF) Acute exacerbation of chronic obstructive pulmonary disease BMI 50.0-59.9, adult VERN (acute kidney injury) Enterococcus faecalis infection MSSA (methicillin susceptible Staphylococcus aureus) MRSA (methicillin resistant staph aureus) culture positive Encounter for management of wound VAC Chronic osteomyelitis Hypertension Iron deficiency anemia COPD (chronic obstructive pulmonary disease) Femur fracture Crohn's colitis Morbid obesity due to excess calories Closed tibia fracture Acute on chronic respiratory failure with hypoxia and hypercapnia Nonrheumatic mitral (valve) stenosis Paroxysmal atrial fibrillation Dyspnea Hypoventilation associated with obesity Chronic hypercapnic respiratory failure Opioid use disorder Surgical History Status post incision and drainage Hx of cholecystectomy History of open reduction and internal fixation (ORIF) procedure Status post open reduction and internal fixation (ORIF) of fracture Recent surgical procedure on lower extremity Family History Other Adopted Social History Household Members: Significant Other Household Members Other:: , [place]. Daughter Carolyn, 21. Daughter's Boyfriend, 22. Neice, 21 Housing: House Do you presently have visiting nurse or other home services: Yes Alcohol intake: never Comment: COUNTS CORRECT Patient Tobacco Use Status: Former Tobacco user Years Smoked: 25 e-Cigarette/Vaping Use: Never Used Second Hand Smoke Exposure: No Advance Directives Date on File: 12/16/20 service: No Current occupational status: disabled Cognitive needs: No Hearing needs: No Vision needs: Yes Review of Systems Const All systems reviewed & are unremarkable except as noted in HPI and below Denies body aches, Denies chills, Denies fatigue and Denies fever(s) Eyes Reports no additional complaints ENT Reports no additional complaints Card Reports no additional complaints Resp Reports no additional complaints GI Reports no additional complaints Reports no additional complaints Skin/Breast Reports as per HPI, Denies bleeding lesions, Reports lesions and Reports erythema Neuro Reports no additional complaints Psych Reports no additional complaints Endo Reports no additional complaints and Denies fatigue Enrique/Lymph Reports no additional complaints Aller/Immun Reports no additional complaints Physical Exam Vital Signs: Last Vital Signs Pulse 75 11/28/24 11:04 BP 136/80 11/28/24 11:04 Pulse Ox 96 11/28/24 11:04 Oxygen Delivery Method Nasal Cannula 11/28/24 11:04 Const General: cooperative, healthy appearing, comfortable, no acute distress, well developed, alert, awake, Physically active and other (Utilizing supplemental oxygen); No acute distress Nutritional Appearance: obese Orientation/consciousness: patient oriented x3 Limitations: no limitations Skin Other: there is a 3cm x 2.5cm area of induration on the left anterior chest wall overlying the medial left breast without fluctuance; there is minimal surrounding erythema, no active discharge Lesions: lesion noted Neuro General: patient oriented x3 Psych Appearance: grossly normal Mental Status: mental status grossly normal Insight: Good insight present (Psych) Judgement: Good judgement present (Psych) Assessment & Plan Assessment & Plan (1) Abscess: Comment: Incision and drainage is not warranted at this time based on clinical presentation. Patient will be discharged home with antibiotic therapy. Code(s): L02.91 - Cutaneous abscess, unspecified Plan: Keflex q.i.d. x7 days. Patient is encouraged to use warm compresses 4 times daily, Tylenol as needed for discomfort. Follow up only as needed. Medications: New cephalexin 500 mg PO Q6H 28 caps 0RF Coding Level of Care Code Est Pt Level 3 (25883) Diagnoses Abscess L02.91 Time Spent (min) 20
[2024-11-28 11:04] VITALS: BP 136/80; PULSE 75; O2SAT 96
--- OUTSIDE RECORDS SUMMARY | 2024-11-28 12:03 | XMS_ITS | Clinical Summary ---
Author Organization [facility] Facility Address [address] [address] Care Team Providers Care [employer] Top Assembler Name Role Phone Unavailable Primary Care Provider [...] Colonoscopy 2010 Colorectal Cancer Screening: Sigmoidoscopy 2010 Pneumococcal Vaccine: 50+ Ye ars (1 - PCV) 2011 Influenza Vaccine (Season Ended) 2025 Hepatitis B Vaccine Aged Out No longe r eligible based on patient's age to complete this topic Insurance Medicare [place]
--- OUTSIDE RECORDS SUMMARY | 2024-11-28 12:03 | XMS_ITS | Data Portability ---
Author Organization [facility] [employer] [facility], Main Office Address [address], [address] [place] [address] Care Team Providers Care Extension Course Counselor Name Role Phone DAY () OTHER [phone] Assessment Encounter Date Assessment Date Assessment LastModified by Organization Details LastModified Time 03/30/2019 03/30/2019 03/28/19 Na 143, K 4.9, BUN 21, Nurse Esthetician 0.75-in hospital [email or web address] Not available 03/30/2019 11:50:52 04/03/2019 04/03/2019 03/31/19 WBC 16.2, Hgb 11.3, Hct 37.9, Plt 190, Na 144, K 3.7, BUN 23, Nurse Esthetician 0.69, C02 42 [email or web address] Not available 04/03/2019 [...] By Organization Details Last Modified Time 03/31/2019 [id number] wound care team to evaluate leg wound myoss Not available 03/31/2019 12:48:10 Reason for Referral None Reported. Problems Name Problem SNOMED Code Status Onset Date Resolution Date Notes Provider Name and Address Organization Details Recorded Time Tncoz-tj-cox onic respiratory failure 52757051 Active 2018 bipap setting 16/7.9 and 5 liters of oxygen ANDREI HUTCHINSON [address], [address], [place], [address], [facility] 9 11:54:07 Chronic obstructive pulmonary disease 78820429 Active 2018 NUBIA SHINEKI ANDREI [address], [address], [place], [address], [facility] 9 11:43:00 Smoker 71135317 Active 2018 NUBIA DALTONAMYP [address], [address], [place], [address], [place] - [facility] 9 11:43:06 Bacteremia 7596305 Active 2018 NUBIA DALTON ANDREI [address], [address], [place], [address], [place] - [facility] 9 11:45:37 Crohn's disease 21013138 Active 2018 ANDREI HUTCHINSON [address], [address], [place], [address], [place] - [facility] 9 11:46:44 Chronic hepatitis C 163654752 Active 2018 ANDREI HUTCHINSON [address], [address], [place], [address], [facility] - [facility] 9 11:47:00 Asthma 763895999 Active 2018 ANDREI HUTCHINSON [address], [address], [place], [address], [facility] - [facility] 9 11:47:20 Chronic pain 09209491 Active 2018 ANDREI HUTCHINSON [address], [place], [address], [facility] - [facility] 9 11:47:51 Venous stasis 41524032 Active 2018 ANDREI HUTCHINSON [address], [address], [place], [address], [place] - [facility] 9 11:48:13 Anxiety 18908655 Active 2018 ANDREI HUTCHINSON [address], [place], [address], [place] - [facility] 9 11:54:52 Essential hypertension 39730086 Active 2018 ANDREI HUTCHINSON [address] [facility] [address], [address], [place], [address], [facility] 9 12:12:54 Insomnia 498192202 Active 2018 ANDREI HUTCHINSON [address], [address], [place], [address], [facility] 9 12:13:59 Problem Notes None recorded. Medical Equipment None Reported. Allergies Allergen ID Allergen Name Allergen Category Reaction Reaction Severity Criticality Documentation Date Start Date Code Code System Note Provider Name and Address Organization Details Recorded Time 90455 morphine medicatio n Not available Not available Not available 03/30/2019 7052 RxNorm ANDREI HUTCHINSON [address] [facility] [address], [address], [place], [address], [facility] 9 11:41:19 Medications Not known to [...] 141 mm[Hg] 65 mm[Hg] ANDREI HUTCHINSON [address] [facility] [address], [address], [place], [address], [facility] 9 11:39:45 Date Recorded Heart rate Respiratory rate Oxygen saturation Oxygen saturation in Arterial blood by Pulse oximetry Inhaled oxygen flow rate Systolic blood pressure Diastolic blood pressure Provider Name and Address Organization Details Last Updated DateTime 9 74 /min 20 /min 93 % 93 % 3 L/min 115 mm[Hg] 71 mm[Hg] Milli Milton MD [address], [address], [place], [address], [facility] 9 11:57:31 Date Recorded Body temperature Heart rate Respiratory rate Oxygen saturation Oxygen saturation in Arterial blood by Pulse oximetry Inhaled oxygen flow rate Systolic blood pressure Diastolic blood pressure Provider Name and Address Organization Details Last Updated DateTime 9 98.1 [degF] 68 /min 20 /min 96 % 96 % 3 L/min 115 mm[Hg] 59 mm[Hg] ANDREI HUTCHINSON [address] [facility] [address], [address], [place], [address] [place] - [facility] 9 12:31:37 Social History Question Answer Notes LastModified by Organizat ion Details LastModified Time Tobacco Smoking Status Current Every Day Smoker Not Available [facility] 05/21/2020 03:13:22 Do You Have An Advance Directive? No [id number] Information not available 05/21/2020 What Is Your Level Of Alcohol Consumption? None [id number] Information not available 05/21/2020 How Much Tobacco Do You Chew? None [id number] Information not available 05/21/2020 Do You Or Have You Ever Used E-cigarettes Or Vape? Never Used Electronic Cigarettes [id number] Information not available 05/21/2020 Do You Have A Medical Power Of Adjutant General? No [id number] Information not available 05/21/2020 What Was The Date Of Your Most Recent Tobacco Screening? 03/30/2019 [id number] Information not available 05/21/2020 Do You Or Have You Ever Used Smokeless Tobacco? Never Used Smokeless Tobacco [id number] Information not available 05/21/2020 How Much Tobacco Do You Smoke? 1 PPD [id number] Information not available 05/21/2020 On What Date Was Tobacco Cessation Counseling Provided? 03/30/2019 Nicotine Patch On [id number] Information not available 05/21/2020 How Many Years Have You Smoked Tobacco? 20 [id number] Information not available 05/21/2020 Sex: Unknown Functional Status None recorded. Mental Status None recorded. Family History Nothing Reported. Medical History No medical history recorded. Gynecological HistoryNo gynecological history recorded. Obstetrics History GPAL:G 0 P 0 0 0 0 Past Encounters Encounter ID Performer Location Encounter Start Date Encounter Closed Date Diagnosis/Indication Diagnosis SNOMED-CT Code Diagnosis ICD10 Code Diagnosis Note [id number] ANDREI HUTCHINSON [place] [address] [place] [address] 03/30/2019 11:27:04 04/18/2019 13:50:48 Lfpef-sa-nuvttit respiratory failure 44648874 J96.22 uses bipap 16/7.9 with 5 liters of oxygenpred nisone taper q 3 daystheoph ylline anhydrous er 400 mg qdanoro ellipta 62.5-25 mcg qdbaseline o2 3 litersmoni tor respirator y status Bacteremia 2915653 R78.8 1 ceftriaxon e 2 gms iv qd til 04/17/19wil l add probioticP icc line management follow with id Chronic ob structive pulmonary disease 06054382 J41.8 see above Smoker 16106376 F17.210 nicotine patch 21 mg qdmonitor Chronic pain 52779989 G8 9.29 suboxone 8/2 tidmonitor pain Venous stasis 49563391 I 87.8 2 wounds on left legwill have wound see heremonito r Asthma 196176901 J45.99 8 see above Chronic hepatitis C 1283 13519 B18.2 in historymon itor Crohn's disease 19179585 K50.80 in historymon itor Anxiety 99305186 F41.1 clonazepam 0.5 mg qddiscusse d risk vs benefit of clonazepam with ptmonitor anxiety Essential hypertension 89065346 I10 lisinopril 20 mg qdmonitor b/p and labs Insomnia 580330967 G47.0 9 temazepam 30 mg q hsdiscusse d risk vs benefit of temazepam with pt monitor sleep [id number] Milli Milton MD [address] [address] 03/31/2019 11:56:49 04/18/2019 13:53:53 Chronic obstructive pulmonary disease 38952661 J41.1 s/p recent exacerbati on with acute on chronic respirator y failureAno ro Ellipta 62.5-25 one puff dailyoxyge n at 3lpredniso ne 40 mg dailytheop hylline ER 400 mg dailywill monitor Chronic pain 32894052 G8 9.29 buprenorpi ne-naloxon e 8-2 - one film SL tidwill monitor Anxiety 58826974 F41.1 clonazepam 0.5 mg dailywill monitor Essential hypertension 62884167 I10 lisinopril 20 mg dailywill continue to monitor Smoker 04793997 F17.200 nicoderm 21 patch dailyencou rage smoking cessation Bacteremia 3010009 R78.8 1 IV ceftriaxon e 2 gm daily until 04/16/19wil l monitor Insomnia 979605215 G47.0 9 temazepam 30 mg at hs - will decrease to 15 mg at hswill monitor [id number] ANDREI HUTCHINSON [address] [place] [address] [place] [address] 04/03/2019 12:19:28 04/18/2019 13:52:43 Bacteremia 0922841 R78.81 ceftriaxon e 2 gms iv qd til 04/17/19pro bioticPicc line management follow with id Acute-on-c hronic respiratory failure 85792236 J96.22 uses bipap 16/7.9 with 5 liters of oxygenpred nisone taper q 3 daystheoph ylline anhydrous er 400 mg qdanoro ellipta 62.5-25 mcg qdbaseline o2 3 litersfoll ow up with pulmonolog y Chronic ob structive pulmonary disease 32183818 J41.8 see above Asthma 681899890 J45.99 8 see above Smoker 59667397 F17.210 nicotine patch 21 mg qdfollow up with PCP Chronic pain 35354236 G8 9.29 suboxone 8/2 tidfollow up with PCP Venous stasis 69785323 I 87.8 2 wounds on left legfollow with PCP Chronic hepatitis C 1283 54761 B18.2 in historyfol low up with PCP Crohn's disease 14949971 K50.80 in historyfol low up with PCP Anxiety 96626396 F41.1 clonazepam 0.5 mg qdfollow up with PCP Essential hypertension 12294530 I10 lisinopril 20 mg qdfollow up with PCP Insomnia 502910827 G47.0 9 temazepam 15 mg q hsfollow up with PCP Health Concerns Section Related Observation LastModified by Organization Detai ls LastModified Time None Recorded Concern Status LastModified by Organization Details LastModified Time None Recorded Advance Directives Directive N: Payers Encounter Date Sequence Insurance Name Policy Number Policy Garcia Covered Member ID Garcia Member ID Guarantor Name 03/30/2019 1 MED[place]ARE B-[place]: [facility] Sample [id number] 1 [place] Sample 03/31/2019 1 MED[place] [facility] Sample [id number] 1 Brianne Sample 04/03/2019 1 [place]: [facility] Brianne Sample [id number] 1 Brianne Sample Notes Date Note Type Note Provider Name and Address Organization Details Recorded Time 03/30/2019 text/html A 59 year old female being seen for a initial intake note. Patient presented to [facility] er with sob and [...] respiratory failure and hepatitis c. NUBIA HOFFMAN, SPECIALIZED DEVELOPER[address], [address], [place], [address], [facility] 03/30/2019 19:27:36 03/31/2019 text/html This 59 year old female was admitted to [facility] on 03/29/19 for continued care and rehab after [facility] for acute on chronic respiratory failure. Patient presented to [facility] ER with sob and cough as well as weakness and confusion. She had recently been injured by oxygen tank falling on left leg before long drive. Leg became swollen and infected. Patient stopped at Urgent Care and then ER on her travels. She received Rx for oral doxycycline. At [facility], she received solu-medrol, IV [...] full code assumed Milli Milton MD [address], [address], [place], [address], [facility] [employer] [facility] 03/31/2019 12:49:04 04/03/2019 text/html A 59 year old female being seen for a discharge summary. Patient presented to [facility] er with sob and [...] failure and hepatitis c. ANDREI HUTCHINSON [address], [address], [place], [address], [facility] [employer] 04/03/2019 14:05:15 OBGyn Episode No OBEpisode recorded.
--- OUTSIDE RECORDS SUMMARY | 2024-11-28 12:04 | XMS_ITS | Clinical Summary ---
Author Organization [facility] Address [address] [place] [address] Care Team Providers Care Machine Fancy Stitcher Name Role Phone Evin Fan MD Primary Care Provider [phone] Allergies Active Allergy Reactions Criticality Noted Date Comments Morphine Unknown/Patient and Family Unable to Define Medium 01/20/2021 Medications buprenorphine-n aloxone (SUBOXONE) 8-[address] [...] MOUTH NIGHTLY AT BEDTIME NEEDED. 11/05/2020 Active umeclidinium-vi lanterol 62.5-25 MCG/INH inhaler Inhale 1 puff daily. [...] at Not on file Legal Sex Female 4:01 AM EDT Gender Identity Not on file Sexual [...] - Risk 60-74 years 1-dose series) 2021 COVID-19 Vaccine (1 - 2023-2 5 season) 2024 Influenza Vaccine 02/23/2025 Hepatitis B Vaccines Aged Out No long er eligible based on patient's age to complete this topic Insurance MEDICARE PART A & B [facility] Care Teams Machine Fancy Stitcher Relationship Specialty Start Date End Date Evin Fan MD [address] [place] [address] [place] [address] PCP - General Family Medicine 01/20/21
== END 2024-11-28 13:03 | disposition home or self-care (01) ==
PROVIDERS: PCP Internal Medicine; Visit Provider Physician Assistant
DX: L02.91 Cutaneous abscess, unspecified (principal)

== ENCOUNTER → 2024-11-28 10:29 | Outpatient (BNVA) | payer OTHER, MEDICAID, SELFPAY | PROVIDERS: PCP Internal Medicine; Visit Provider Physician Assistant | DX: L02.91 Cutaneous abscess, unspecified (principal) | CPT/HCPCS: 99212 ==

== ENCOUNTER 2024-11-29 15:18 | Outpatient (AMB) | payer MEDICARE, MEDICAID, SELFPAY ==
--- NOTE | 2024-11-29 15:22 | MHC.OFFVIS ---
Vital Signs 11/29/24 15:25 BMI Reason not done Patient refused/unable BP 134/62 Blood Pressure Location Rt radial Position Sitting Pulse 74 Pulse Source Pulse Oximeter Pulse Oximetry (%) 91 L Oxygen Delivery Method Nasal Cannula Oxygen Flow Rate 3 Intake Visit Reasons: copd/jose Allergies gabapentin Allergy (Mild, Verified 11/29/24 15:31) Anxiety morphine [MORPHINE] Allergy (Unknown, Verified 11/29/24 15:31) ANAPHALAXIS, anaphylaxis propofol [From Diprivan] Allergy (Verified 11/29/24 15:31) Anaphylaxis HPI HPI copd/jose: Details: Brianne is a pleasant 64-year-old female, former smoker, with 70 pack-year history, quit 5 years ago with underlying COPD, CHF, HFpEF + R-sided HF/pHTN, obesity, chronic osteomyelitis, chronic hypercarbic/hypoxic resp failure on home O2.? She was referred by [facility] after recent admission from 11/06-11/08/2024 and previously 04/24-05/01/2024 for acute hypoxic respiratory failure secondary to COPD and CHF.? During 2023 admission to ED patient hypoxic and lethargic placed on BiPAP, which she does use BiPAP NOC.? In the ER she was given IV Lasix, Solu-Medrol, albuterol. Diuresed with IV furosemide and then transitioned to usual dose of PO furosemide 40 mg daily. Treated with acetazolamide for metabolic alkalosis. Cardiology consulted who added Imdur, spironolactone, and empagliflozin. 2-4L O2 titrated to SaO2 88-92%, BiPAP at night 18. At the most recent admission patient was switched from BiPAP to NIV, initial ABGs showed pH of 7.38, pCO2 of 90; upon discharge VBG pH of 7.37, pCO2 of 50, which she has been using at home with good effect. DME is [employer]. Her Lasix was also increased from 40 mg to 80 mg daily and again was placed on a 7 day course of Diamox for metabolic alkalosis. She is currently on Trelegy 100 mcg, theophylline and albuterol MDI, noting good control of respiratory symptoms at this time, however can only ambulate about 20 ft before feeling short of breath. She is currently using 1-2 L of supplemental oxygen at rest and 3-4 L with exertion. Denies prior history of asthma.? She denies any occupational exposures.? She denies seasonal allergies.? Pertinent family history is unknown as she is adopted. [facility] Medical History (Updated 12/03/24 @ 21:01 by Crissy Peck NP) COPD (chronic obstructive pulmonary disease) Chronic hypoxic respiratory failure Hypoventilation associated with obesity Pickwickian syndrome DM type 2 (diabetes mellitus, type 2) Shortness of breath Influenza A Sepsis Acute on chronic heart failure with preserved ejection fraction (HFpEF) Acute exacerbation of chronic obstructive pulmonary disease BMI 50.0-59.9, adult VERN (acute kidney injury) Enterococcus faecalis infection MSSA (methicillin susceptible Staphylococcus aureus) MRSA (methicillin resistant staph aureus) culture positive Encounter for management of wound VAC Chronic osteomyelitis Hypertension Iron deficiency anemia COPD (chronic obstructive pulmonary disease) Femur fracture Crohn's colitis Morbid obesity due to excess calories Closed tibia fracture Acute on chronic respiratory failure with hypoxia and hypercapnia Nonrheumatic mitral (valve) stenosis Paroxysmal atrial fibrillation Dyspnea Chronic hypercapnic respiratory failure Opioid use disorder Surgical History Status post incision and drainage Hx of cholecystectomy History of open reduction and internal fixation (ORIF) procedure Status post open reduction and internal fixation (ORIF) of fracture Recent surgical procedure on lower extremity Family History Other Adopted Social History Household Members: Significant Other Household Members Other:: , [place]. Daughter Carolyn, 21. Daughter's Boyfriend, 22. Neice, 21 Housing: House Do you presently have visiting nurse or other home services: Yes Alcohol intake: never Comment: COUNTS CORRECT Patient Tobacco Use Status: Former Tobacco user Years Smoked: 25 e-Cigarette/Vaping Use: Never Used Second Hand Smoke Exposure: No Advance Directives Date on File: 12/16/20 service: No Current occupational status: disabled Cognitive needs: No Hearing needs: No Vision needs: Yes Review of Systems Const Denies chills, Denies excessive sweating, Denies fever(s), Denies headache(s) and Denies night sweats Eyes Denies dry eyes, Denies irritation and Denies itchy eyes ENT Reports Normal hearing present, Denies headache(s), Denies nasal congestion, Denies nasal discharge, Denies post nasal drip and Denies sore throat Card Denies chest pain, Denies chest pain at rest, Denies chest pain with activity, Denies claudication, Denies dyspnea and Denies paroxysmal nocturnal dyspnea Resp Denies chest congestion, Denies cough, Denies excessive phlegm production, Denies pain on inspiration, Denies pain with cough, Denies dyspnea, Denies stridor and Denies wheezing Musc Denies myalgias Neuro Reports Normal hearing present and Denies headache(s) Endo Denies excessive sweating Enrique/Lymph Denies lymphadenopathy Aller/Immun Denies itchy eyes, Denies seasonal rhinorrhea and Denies wheezing Physical Exam Vital Signs: Last Vital Signs Pulse 74 11/29/24 15:25 BP 134/62 11/29/24 15:25 Pulse Ox 91 L 11/29/24 15:25 Oxygen Delivery Method Nasal Cannula 11/29/24 15:25 Oxygen Flow Rate 3 11/29/24 15:25 Const General: cooperative, healthy appearing, comfortable, no acute distress, well developed and alert Nutritional Appearance: obese Orientation/consciousness: patient oriented x3 Limitations: wheelchair (motorized scooter) HEENT Head: Yes normal to inspection, Yes normocephalic and Yes atraumatic Ears: hearing grossly normal bilaterally and external ears normal Eyes General: appearance normal, both eyes and all related structures Eyelids: Yes eyelids normal Sclerae: sclerae normal EOM: EOMs intact bilaterally Neck Neck: Yes normal visual inspection and Yes no lymphadenopathy Lymphatic: no lymphadenopathy noted Chest Chest palpation & inspection: normal inspection of the chest Resp Effort & Inspection: normal respiratory effort, able to speak in complete sentences, no audible wheezes, no cough, no stridor, not tachypneic, no tripod positioning and no use of accessory muscles Auscultation: diminished lung sounds Cardio Jugular venous distension: no JVD Rate: regular rate Rhythm: regular rhythm Skin Other: warm, dry General skin exam: no rashes or lesions noted Neuro General: patient oriented x3 Cranial nerves: Yes Normal hearing present Cognition (Neuro): normal cognition Gait exam (Neuro): Assisted gait required Extrem Other: 2+pedal edema Psych Appearance: grossly normal and well kempt Speech and movement: Normal speech and movement present and Clear speech present Affect: normal affect Attitude: cooperative Thought process: Normal thought process present Thought content: Normal thought content present Insight: Good insight present (Psych) Judgement: Good judgement present (Psych) Results Reviewed Results Reviewed: [address] [address] [address] Scan Report Signed Patient: Brianne Chaudhary MR#: [id number] : 1960 Acct:[id number] Age/Sex: 64 / F ADM Date: 10/08/24 Loc: [facility] 453-[address]: Kike Aquino DO Ordering Physician: Kike Aquino DO Date of Service: 10/14/24 Procedure(s): CT chest w IV con Accession Number(s): [id number] cc: Sandra Diego MD; Kike Aquino DO~ Report Number: [id number]: Total DLP = 499.00 mGy-cm CLINICAL HISTORY: shortness of breath CT chest with contrast Comparison: CT - CT CHEST W IV CON - 10/14/24 10:34 EDT Findings: Motion artifact significantly limits interpretation The pulmonary arterial tree is enlarged, with the main pulmonary artery measuring up to 4.5 cm. No aortic aneurysms. There is atherosclerotic disease of the coronary arteries. No mediastinal adenopathy. The heart is mildly enlarged. Large bleb noted along the anterior right lung base. Diffuse faint ground-glass density suggested. No effusion or pneumothorax. The visualized upper abdomen demonstrates no definite acute process. Old right-sided rib fractures are noted. Impression: Cardiomegaly with dilated pulmonary arteries. Correlation for pulmonary arterial hypertension. Faint diffuse ground-glass density, nonspecific. Correlation for viral infectious process. The study is extremely limited by significant motion artifact. This document has been electronically signed by: Maxim Way MD on 10/14/2024 11:33:22 Dictated By: Maxim Way MD Signed By: <Electronically signed by Maxim Way MD in OV> 10/14/24 1134 DD/ 1133 TD/TT: 10/14/24 1133 [employer]: Assessment & Plan Assessment & Plan (1) Hypoventilation associated with obesity: Code(s): E66.2 - Morbid (severe) obesity with alveolar hypoventilation Category: Medical Qualifiers: Body mass index: BMI 45.0-49.9 Obesity classification: adult class 3 (BMI >= 40) Serious obesity comorbidity presence: with serious comorbidity Qualified Code(s): E66.2 - Morbid (severe) obesity with alveolar hypoventilation; Z68.42 - Body mass index [BMI] 45.0-49.9, adult (2) Chronic hypoxic respiratory failure: Comment: Secondary to morbid obesity, hypoventilation, COPD, echo 04/2024 nl EF, severe pulmonary hypertension Code(s): J96.11 - Chronic respiratory failure with hypoxia Category: Medical (3) COPD (chronic obstructive pulmonary disease): Comment: ex smoker quit 2019 Code(s): J44.9 - Chronic obstructive pulmonary disease, unspecified Category: Medical Qualifiers: COPD type: COPD with acute exacerbation Qualified Code(s): J44.1 - Chronic obstructive pulmonary disease with (acute) exacerbation (4) Pulmonary hypertension: Code(s): I27.20 - Pulmonary hypertension, unspecified Category: Medical Plan Brianne presents for pulmonary evaluation for known history of chronic respiratory failure with hypercapnia and pulmonary hypertension. At this time she feels symptoms are relatively controlled on current regimen of Trelegy, theophylline And albuterol MDI, advised to continue. She is currently using 1-2 L of supplemental oxygen with rest and 3-4 L with exertion to maintain an oxygen saturation of 88-92%. Since initiating the noninvasive ventilator she feels her symptoms have significantly improved and is motivated to continue to use. Will send for in lab titration study to ensure optimal pressures. Will continue to follow blood gases. Will send for PFT to assess severity of COPD. Will send for repeat echo as previous echo from September 2024 revealed moderate to severe pulmonary hypertension, currently on 80 mg of Lasix. May need to consider right heart catheterization. Recent chest CT revealed faint diffuse ground-glass density, will repeat in 3 months to assess for resolution. Patient also noted ongoing concerns with recurrent respiratory and skin infections, will send for autoimmune workup. All questions were answered and patient is in agreement of plan. Will follow-up to review results or sooner if needed. Orders: Orders Immunoglobulin G Subclasses 11/30/24 B99.9 - Unspecified infectious disease Immunoglobulins,IgG IgA IgM 11/30/24 B99.9 - Unspecified infectious disease Theophylline Today Z51.81 - Encounter for therapeutic drug level monitoring CA echo transthoracic complete Today I27.20 - Pulmonary hypertension, unspecified CT chest wo IV con Today R91.8 - Other nonspecific abnormal finding of lung field RT PSG in-lab sleep titration Today E66.2 - Morbid (severe) obesity with alveolar hypoventilation, J96.11 - Chronic respiratory failure with hypoxia, R06.89 - Other abnormalities of breathing, Z68.42 - Body mass index [BMI] 45.0-49.9, adult PFT pulmonary function test Today J44.1 - Chronic obstructive pulmonary disease with (acute) exacerbation Coding Level of Care Code New Pt Level 5 (74992) Diagnoses Class 3 obesity with alveolar hypoventilation, serious comorbidity, and body mass index (BMI) of 45.0 to 49.9 in adult E66.2; Z68.42 Body mass index: BMI 45.0-49.9 Obesity classification: adult class 3 (BMI >= 40) Serious obesity comorbidity presence: with serious comorbidity Chronic hypoxic respiratory failure J96.11 COPD (chronic obstructive pulmonary disease) J44.1 COPD type: COPD with acute exacerbation Pulmonary hypertension I27.20 Time Spent (min) 50
[2024-11-29 15:25] VITALS: BP 134/62; PULSE 74; O2SAT 91
--- OUTSIDE RECORDS SUMMARY | 2024-11-29 16:16 | XMS_ITS | Data Portability ---
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 Results Procedure: Wound Vacuum Dressing Change Description: [...] dressing regularly with wound care nurse from [facility]. -Check wound in 6-8 weeks or sooner [...] care clinic for additional input if needed. [email or web address] Not available 04/17/2024 21:48:46 06/01/2024 06/01/2024 History [...] weeks or sooner if any flare-ups occur. [email or web address] Not available 06/07/2024 22:37:13 Plan of Treatment [...] rt femur 2v global 2023 024 [email or web address] [facility], [address], [address], [place], [address], 4 07:22:36 XR, femur, 2 or more view - 315 rt femur 2v new pt 2023 024 [email or web address] [facility], [address], [address], [place], [address], 4 16:27:27 Medication Orders None recorded. Patient TargetsNo targets recorded. Patient InstructionsNo instructions recorded. Reason for Referral Right distal lateral thigh w ound, wound VAC change every 48-72 hours, with black granular foam sponge, and -125 mmHg suction. Wound tunnels distally about 4 cm, and laterally i.e. deep she is about 3-1/2 cm. Referring Physician: Juanjose Dangelo, Orthopedic Surgery, [id number] Encounter Date: 04/07/2024 Results Created Date Observation Date Name Description Value Unit Range Abnormal Flag Note LastModifiedBy Organization Detail LastModifiedTime 04/07/2004/07/2024 XR, femur , 2 or more view [email or web address] ?Encry pted=s hAaTro YD8dLq bEUv6g %2BXZw aYqtaq 0bqfl% 2Fg9IQ a4ajBk vP9nXo QUaueC m3YtLR FvZlgJ JJ8mAn HZtai3 8z9060 AC0Kqa n6MU6S iKiQtr MwF INTERFACE [facility] [address], [place], [address], 04/07/2024 11:10:25 04/07/20 24 04/07/2024 XR, femur , 2 or more view [email or web address] ?Encry pted=s hAaTro YD8dLq bEUv6g %2BXZw aYqtaq 0bqfl% 2Fg9IQ a4ajBk vP9nXo QUaueC m3YtLR FvZlgJ JJ8mAn HZtai3 6n3576 AC0Kqa n6MU6S iKiQtr MwF INTERFACE [facility] [address], [place], [address], 04/07/2024 11:10:27 Result Notes None recorded. 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 5204296048841 03 Active 2023 Katina Mills MD [address], [place], [address] , [facility] 4 11:52:00 Open wound of thigh 866665673 Active 2023 Katina Mills MD [address], [place], [address] , [facility] 4 16:45:16 Infection AND/OR inflammato ry reaction due to internal prosthetic device, implant AND/OR graft 12569500 Active 2023 Katina Mlils MD [address], [place], [address] , [facility] 4 16:45:24 Thigh pain 65272258 Active 2023 JOHN rangel [facility] 4 13:29:20 Thigh pain 59237421 Active 2023 JOHN rangel [facility] 4 13:29:34 Pain of right thigh 9139120422372 07 Active 2023 JOHN rangel [place] [facility] [place] [facility] 4 13:30:16 Problem Notes None recorded. Procedures Surgical History None recorded. Imaging Results Imaging Date Name Status LastModified by Organiz ation Details LastModified Time 04/07/2024 XR, femur, 2 or more view completed [email or web address] [email or web address], [place], [address], 04/07/2024 11:10:25 04/07/2024 XR, femur, 2 or more view completed [facility]FACE [email or web address] [email or web address], [place], [address], 04/07/2024 11:10:27 Procedure Notes None recorded. Medical Equipment None Reported. Allergies Allergen ID Allergen Name Allergen Category Reaction Reaction Severity Criticality Documentation Date Start Date Code Code System Note Provider Name and Address Organization Details Recorded Time 65028 morphine sulfate medicatio n Not available Not available Not available 09/27/20232020 12586 RxNorm Not Available [facility] 4 12:45:16 Medications Name Sig [...] Updated DateTime 11/24/2023 156.21 cm 50.2 kg/m2 565617.94 g VIKTOR ALVARESOUR [facility] 11/24/2023 09:55:18 Date Recorded Body height Body mass index (BMI) Body weight Provider Name and Address Organization Details Last Updated DateTime 02/22/2024 156.21 cm 50.2 kg/m2 867936.94 g VIKTOR ALVARESOUR [facility] 02/22/2024 14:48:54 Date Recorded Body height Body mass index (BMI) Body weight Provider Name and Address Organization Details Last Updated DateTime 04/07/2024 156.21 cm 50.2 kg/m2 659460.94 g VIKTOR MARCIALYMOUR [facility] 04/07/2024 10:56:59 Date Recorded Body height Body mass index (BMI) Body weight Provider Name and Address Organization Details Last Updated DateTime 06/01/2024 156.21 cm 50.2 kg/m2 951608.94 g VIKTOR MARCIALYMOUR [facility] 06/01/2024 14:26:08 Social [...] Disease N Heart Trouble Y Heart Attack ([place]) N Gastrointestinal Disease Y Cholesterol N Diabetes [...] SNOMED-CT Code Diagnosis ICD10 Code Diagnosis Note [id number] MD Cristina Morton [address] [place] [address] [address] [place] [address] 11/24/2023 09:44:05 11/24/2023 16:25:12 Fracture of femur 05967798 S72.91XD [id number] MD Cristina Morton [address] [place] [address] [address] [place] [address] 02/22/2024 14:35:57 03/20/2024 05:41:20 Chronic osteomyelitis of femur 472435924 M86.659 Infection AND/OR inflammatory reaction due to internal prosthetic device, implant AND/OR graft 76159914 T82.7XXS Open wound of thigh 1256 15481 S71.101A Chronic os teomyelitis of femur with draining sinus 9274159317 05105 M86.499 [id number] MD Cristina Ambrose [address] [place] [address] [address] [place] [address] 04/07/2024 10:50:34 04/20/2024 07:22:36 Closed fracture of shaft of femur 98391884 S72.301D Open wound of thigh 1256 14438 S71.101D [id number] MD Cristina Ambrose [address] [place] [address] [address] [place] [address] 06/01/2024 14:12:22 06/20/2024 09:07:48 Chronic osteomyelitis of right femur 6679121151 695840 M86.651 Chronic os teomyelitis of femur with draining sinus 1533885448 09355 M86.451 Health Concerns Section Related Observation LastModified by Organization Detai ls LastModified Time None Recorded Concern Status LastModified by Organization Details LastModified Time None Recorded Advance Directives Directive None Recorded Payers Encounter Date Sequence Insurance Name Policy Number Policy Garcia Covered Member ID Garcia Member ID Guarantor Name 11/24/2023 1 [place] B[place] [facility] Sample [id number] [place] Sample 11/24/2023 2 [place] [facility] Sample [id number] [place] Sample 02/22/2024 1 [place] [facility] Sample [id number] [place] Sample 02/22/2024 2 [place] [facility] Sample [id number] [place] Sample 04/07/2024 1 [place] [facility] Sample [id number] [place] Sample 04/07/2024 2 [place] [facility] Sample [id number] [place] Sample 06/01/2024 1 [place] [facility] Sample [id number] [place] Sample 06/01/2024 2 [place] [facility] Sample [id number] [place] Sample OBGyn Episode No OBEpisode recorded.
--- OUTSIDE RECORDS SUMMARY | 2024-11-29 16:16 | XMS_ITS | Clinical Summary ---
Author Organization [facility] Facility Address [address] [address] Care Team Providers Care Drier Operator Name Role Phone Unavailable Primary Care Provider [...] patient's age to complete this topic Insurance * Guarantor: Brianne Chaudhary Account Type Relation to Patient Date of Phone Billing Address Personal/Family Self [address] [address] [place]
--- OUTSIDE RECORDS SUMMARY | 2024-11-29 16:16 | XMS_ITS | Clinical Summary ---
Author Organization [facility] Address [address] [place] [address] Care Team Providers Care Track Coach Name Role Phone Evin Fan MD Primary Care Provider [phone] Allergies Active Allergy Reactions Criticality Noted Date [...] topic Insurance MEDICARE PART A & B [facility] Care Teams Track Coach Relationship Specialty Start Date End Date Evin Fan MD [address] [place] [address] [place] [address] PCP - General Family Medicine 01/20/21
--- OUTSIDE RECORDS SUMMARY | 2024-11-29 16:16 | XMS_ITS | Data Portability ---
Author Organization [facility] Main Office Address [address], [address] [place] [address] Care Team Providers Care Oyster Buyer Name Role Phone DAY () OTHER Assessment Encounter Date Assessment Date Assessment LastModified by Organization Details LastModified Time 03/30/2019 03/30/2019 03/28/19 Na 143, K 4.9, BUN 21, Pattern Molder 0.75-in hospital [email or web address] Not available 03/30/2019 11:50:52 04/03/2019 04/03/2019 03/31/19 WBC 16.2, Hgb 11.3, Hct 37.9, Plt 190, Na 144, K 3.7, BUN 23, Pattern Molder 0.69, C02 42 [email or web address] Not available 04/03/2019 [...] By Organization Details Last Modified Time 03/31/2019 28037 wound care team to evaluate leg wound myoss Not available 03/31/2019 12:48:10 Reason for Referral None Reported. Problems Name Problem SNOMED Code Status Onset Date Resolution Date Notes Provider Name and Address Organization Details Recorded Time Vmfns-ti-ffy onic respiratory failure 81245333 Active 2018 bipap setting 16/7.9 and 5 liters of oxygen ANDREI HUTCHINSON [address], [address], [place], [address], [facility] [employer] 9 11:54:07 Chronic obstructive pulmonary disease 43727000 Active 2018 NUBIA SHINEKI ANDREI [address], [address], [place], [address], [facility] 9 11:43:00 Smoker 82725637 Active 2018 NUBIA DALTONAMYP [address], [address], [place], [address], [place] - [facility] 9 11:43:06 Bacteremia 2466052 Active 2018 NUBIA DALTON ANDREI [address], [address], [place], [address], [place] - [facility] 9 11:45:37 Crohn's disease 38170655 Active 2018 ANDREI HUTCHINSON [address], [address], [place], [address], [place] - [facility] 9 11:46:44 Chronic hepatitis C 501362070 Active 2018 ANDREI HUTCHINSON [address], [address], [place], [address], [facility] - [facility] 9 11:47:00 Asthma 354358966 Active 2018 ANDREI HUTCHINSON [address], [address], [place], [address], [facility] 9 11:47:20 Chronic pain 27016879 Active 2018 ANDREI HUTCHINSON [address], [address], [place], [address], [facility] - [facility] 9 11:47:51 Venous stasis 29966754 Active 2018 ANDREI HUTCHINSON [address], [address], [place], [address], [place] - [facility] 9 11:48:13 Anxiety 13633371 Active 2018 ANDREI HUTCHINSON [address], [address], [place], [address], [place] - [facility] 9 11:54:52 Essential hypertension 76156235 Active 2018 ANDREI HUTCHINSON [address], [address], [place], [address], [facility] 9 12:12:54 Insomnia 728713163 Active 2018 ANDREI HUTCHINSON [address], [address], [place], [address], [facility] 9 12:13:59 Problem Notes None recorded. Medical Equipment None Reported. Allergies Allergen ID Allergen Name Allergen Category Reaction Reaction Severity Criticality Documentation Date Start Date Code Code System Note Provider Name and Address Organization Details Recorded Time 09325 morphine medicatio n Not available Not available Not available 03/30/2019 7052 RxNorm ANDREI HUTCHINSON [address], [address], [place], [address], [facility] 9 11:41:19 Medications Not known to [...] 141 mm[Hg] 65 mm[Hg] ANDREI HUTCHINSON [address], [address], [place], [address], [facility] 9 11:39:45 Date Recorded Heart rate Respiratory rate Oxygen saturation Oxygen saturation in Arterial blood by Pulse oximetry Inhaled oxygen flow rate Systolic blood pressure Diastolic blood pressure Provider Name and Address Organization Details Last Updated DateTime 9 74 /min 20 /min 93 % 93 % 3 L/min 115 mm[Hg] 71 mm[Hg] Milli Milton MD [address], [address], [place], [address], [facility] 9 11:57:31 Date Recorded Body temperature Heart rate Respiratory rate Oxygen saturation Oxygen saturation in Arterial blood by Pulse oximetry Inhaled oxygen flow rate Systolic blood pressure Diastolic blood pressure Provider Name and Address Organization Details Last Updated DateTime 9 98.1 [degF] 68 /min 20 /min 96 % 96 % 3 L/min 115 mm[Hg] 59 mm[Hg] ANDREI HUTCHINSON [address], [address], [place] [address] [place] - [facility] 9 12:31:37 Social History Question Answer Notes LastModified by Organizat ion Details LastModified Time Tobacco Smoking Status Current Every Day Smoker Not Available [facility] 05/21/2020 03:13:22 Do You Have An Advance Directive? No [id number] Information not available 05/21/2020 What Is Your Level Of Alcohol Consumption? None [id number] Information not available 05/21/2020 How Much Tobacco Do You Chew? None [id number] Information not available 05/21/2020 Do You Or Have You Ever Used E-cigarettes Or Vape? Never Used Electronic Cigarettes [id number] Information not available 05/21/2020 Do You Have A Medical Power Of Loan Review Analyst? No [id number] Information not available 05/21/2020 What Was The Date Of Your Most Recent Tobacco Screening? 03/30/2019 [id number] Information not available 05/21/2020 Do You Or Have You Ever Used Smokeless Tobacco? Never Used Smokeless Tobacco [id number] Information not available 05/21/2020 How Much Tobacco Do You Smoke? 1 PPD [id number] Information not available 05/21/2020 On What Date Was Tobacco Cessation Counseling Provided? 03/30/2019 Nicotine Patch On [id number] Information not available 05/21/2020 How Many Years Have You Smoked Tobacco? 20 [id number] Information not available 05/21/2020 Sex: Unknown Functional Status None recorded. Mental Status None recorded. Family History Nothing Reported. Medical History No medical history recorded. Gynecological HistoryNo gynecological history recorded. Obstetrics History GPAL:G 0 P 0 0 0 0 Past Encounters Encounter ID Performer Location Encounter Start Date Encounter Closed Date Diagnosis/Indication Diagnosis SNOMED-CT Code Diagnosis ICD10 Code Diagnosis Note [id number] ANDREI HUTCHINSON [address] [address] [place] [address] 03/30/2019 11:27:04 04/18/2019 13:50:48 Ukzzq-lr-artnekd respiratory failure 12213364 J96.22 uses bipap 16/7.9 with 5 liters of oxygenpred nisone taper q 3 daystheoph ylline anhydrous er 400 mg qdanoro ellipta 62.5-25 mcg qdbaseline o2 3 litersmoni tor respirator y status Bacteremia 1844203 R78.8 1 ceftriaxon e 2 gms iv qd til 04/17/19wil l add probioticP icc line management follow with id Chronic ob structive pulmonary disease 66523483 J41.8 see above Smoker 07188286 F17.210 nicotine patch 21 mg qdmonitor Chronic pain 11278086 G8 9.29 suboxone 8/2 tidmonitor pain Venous stasis 20038681 I 87.8 2 wounds on left legwill have wound see heremonito r Asthma 161170468 J45.99 8 see above Chronic hepatitis C 1283 90320 B18.2 in historymon itor Crohn's disease 43757042 K50.80 in historymon itor Anxiety 41455277 F41.1 clonazepam 0.5 mg qddiscusse d risk vs benefit of clonazepam with ptmonitor anxiety Essential hypertension 97290460 I10 lisinopril 20 mg qdmonitor b/p and labs Insomnia 885989993 G47.0 9 temazepam 30 mg q hsdiscusse d risk vs benefit of temazepam with pt monitor sleep [id number] Milli Milton MD [address] [address] 03/31/2019 11:56:49 04/18/2019 13:53:53 Chronic obstructive pulmonary disease 26442204 J41.1 s/p recent exacerbati on with acute on chronic respirator y failureAno ro Ellipta 62.5-25 one puff dailyoxyge n at 3lpredniso ne 40 mg dailytheop hylline ER 400 mg dailywill monitor Chronic pain 89394437 G8 9.29 buprenorpi ne-naloxon e 8-2 - one film SL tidwill monitor Anxiety 46111729 F41.1 clonazepam 0.5 mg dailywill monitor Essential hypertension 37457793 I10 lisinopril 20 mg dailywill continue to monitor Smoker 29482091 F17.200 nicoderm 21 patch dailyencou rage smoking cessation Bacteremia 8673864 R78.8 1 IV ceftriaxon e 2 gm daily until 04/16/19wil l monitor Insomnia 719274585 G47.0 9 temazepam 30 mg at hs - will decrease to 15 mg at hswill monitor [id number] ANDREI HUTCHINSON [address] [address] [place] [address] 04/03/2019 12:19:28 04/18/2019 13:52:43 Bacteremia 4447207 R78.81 ceftriaxon e 2 gms iv qd til 04/17/19pro bioticPicc line management follow with id Acute-on-c hronic respiratory failure 78703900 J96.22 uses bipap 16/7.9 with 5 liters of oxygenpred nisone taper q 3 daystheoph ylline anhydrous er 400 mg qdanoro ellipta 62.5-25 mcg qdbaseline o2 3 litersfoll ow up with pulmonolog y Chronic ob structive pulmonary disease 90707580 J41.8 see above Asthma 776384382 J45.99 8 see above Smoker 62631869 F17.210 nicotine patch 21 mg qdfollow up with PCP Chronic pain 57640481 G8 9.29 suboxone 8/2 tidfollow up with PCP Venous stasis 30810347 I 87.8 2 wounds on left legfollow with PCP Chronic hepatitis C 1283 08060 B18.2 in historyfol low up with PCP Crohn's disease 12646080 K50.80 in historyfol low up with PCP Anxiety 58755356 F41.1 clonazepam 0.5 mg qdfollow up with PCP Essential hypertension 23457777 I10 lisinopril 20 mg qdfollow up with PCP Insomnia 190017786 G47.0 9 temazepam 15 mg q hsfollow up with PCP Health Concerns Section Related Observation LastModified by Organization Detai ls LastModified Time None Recorded Concern Status LastModified by Organization Details LastModified Time None Recorded Advance Directives Directive N: Payers Encounter Date Sequence Insurance Name Policy Number Policy Garcia Covered Member ID Garcia Member ID Guarantor Name 03/30/2019 1 MEDICARE B-[place]: [facility] Sample [id number] 1 [place] Sample 03/31/2019 1 [place] [facility] Sample [id number] 1 Brianne Sample 04/03/2019 1 MEDIC[place]: [facility] Brianne Sample [id number] 1 Brianne Sample Notes Date Note Type Note Provider Name and Address Organization Details Recorded Time 03/30/2019 text/html A 59 year old female being seen for a initial intake note. Patient presented to [facility] er with sob and cough. She received [...] respiratory failure and hepatitis c. NUBIA HOFFMAN, MARKETING ADMIN[address], [address], [place], [address], [facility] [place] [facility] 03/30/2019 19:27:36 03/31/2019 text/html This 59 year old female was admitted to [facility] on 03/29/19 for continued care and rehab after [facility] for acute on chronic respiratory failure. Patient presented to [facility] ER with sob and cough as well as weakness and confusion. She had recently been injured by oxygen tank falling on left leg before long drive. Leg became swollen and infected. Patient stopped at Urgent Care and then ER on her travels. She received Rx for oral doxycycline. At [facility], she received solu-medrol, IV furosemide and updrafts [...] full code assumed Milli Milton MD [address], [address], [place], [address], [facility] [place] [facility] 03/31/2019 12:49:04 04/03/2019 text/html A 59 year old female being seen for a discharge summary. Patient presented to [facility] er with sob and cough. She received [...] failure and hepatitis c. ANDREI HUTCHINSON [address], [address], [place], [address], [facility] [place] [facility] 04/03/2019 14:05:15 OBGyn Episode No OBEpisode recorded.
== END 2024-11-29 16:26 | disposition home or self-care (01) ==
LOC: HO.HPSW 15:19
PROVIDERS: PCP Internal Medicine; Visit Provider Nurse Practitioner Family
DX: J44.1 Chronic obstructive pulmonary disease with (acute) exacerbation (principal); E66.2 Morbid (severe) obesity with alveolar hypoventilation; Z68.42 Body mass index [BMI] 45.0-49.9, adult; J96.11 Chronic respiratory failure with hypoxia; I27.20 Pulmonary hypertension, unspecified
CPT/HCPCS: 99205

== ENCOUNTER → 2024-11-29 15:18 | Outpatient (BNVA) | payer MEDICARE, MEDICAID, SELFPAY | PROVIDERS: PCP Internal Medicine; Visit Provider Nurse Practitioner Family | DX: J44.1 Chronic obstructive pulmonary disease with (acute) exacerbation (principal); J96.12 Chronic respiratory failure with hypercapnia; J96.11 Chronic respiratory failure with hypoxia; I27.20 Pulmonary hypertension, unspecified; E66.2 Morbid (severe) obesity with alveolar hypoventilation; R91.8 Other nonspecific abnormal finding of lung field; Z68.42 Body mass index [BMI] 45.0-49.9, adult; Z99.81 Dependence on supplemental oxygen; Z87.891 Personal history of nicotine dependence | CPT/HCPCS: 99202 ==

== ENCOUNTER 2024-12-10 01:51 | Inpatient (IN) | payer MEDICARE, MEDICAID, SELFPAY ==
[2024-12-10] VITALS (22 sets, daily range): BP systolic 98–152; BP diastolic 45–78; PULSE 61–98; RESP 16–22; TEMP 36.1–37.7; O2SAT 80–99; BMI 51.1; BMI 53.4
--- NOTE | ~2024-12-10 | XR_ITS ---
CLINICAL HISTORY: sob 1 view chest x-ray Comparison: CR/SR - XR CHEST 1V - 11/07/24 08:24 EDT CR - XR CHEST 1V - 11/05/24 17:52 EDT Findings: Perihilar and basilar edema or infiltrates. Enlarged cardiac silhouette. No acute fracture. IMPRESSION: Enlarged cardiac silhouette with mild pulmonary vascular congestion. This document has been electronically signed by: Ron Ruelas MD, PHD on 12/10/2024 03:23:00
--- NOTE | 2024-12-10 01:59 | ECG_ITS ---
Test Reason : SOB Blood Pressure : */* mmHG Vent. Rate : 94 BPM Atrial Rate : 94 BPM P-R Int : 158 ms QRS Dur : 94 ms QT Int : 360 ms P-R-T Axes : 70 46 56 degrees QTcB Int : 450 ms Normal sinus rhythm Normal ECG When compared with ECG of 08-Oct-2024 02:46, MS interval has decreased Referred By: Crissy Nova Electronically Signed By: CHANO BENAVIDES MD
--- NOTE | 2024-12-10 02:03 | ED.SOB ---
HPI - SOB/Dyspnea General Chief Complaint: Dyspnea Stated Complaint: Respiratory Distress hx COPD Time Seen by Provider: 12/10/24 01:59 Source: patient and EMS Mode of arrival: EMS Limitations: other ( shortness of breath) History of Present Illness ED Provider: Dr. Crissy Nova HPI Narrative: patient comes to the emergency room via ambulance from home. Patient known to have COPD, oxygen dependent 2-3 L. patient states she has been using her nebulization treatments but today, she has been having difficulty breathing. According to EMS, they found the patient saturating in the 80s, patient was put on CPAP and brought to the emergency room. Patient states that she has chest tightness, likely secondary from not being able to breathe well, no significant pain. Related Data Home Medications ?Medication ?Instructions ?Recorded ?Confirmed fluticasone fur. 100 mcg-umeclid 1 ea inhalation DAILY 04/24/24 11/10/24 62.5 mcg-vilant 25 mcg inhalat.powder (Trelegy Ellipta) cholecalciferol (vitamin D3) 50 50 mcg PO DAILY 05/21/24 11/10/24 mcg (2,000 unit) tablet clonazepam 0.5 mg tablet 0.5 mg PO BID PRN Anxiety 05/21/24 11/10/24 temazepam 30 mg capsule 30 mg PO BEDTIME PRN Sleep 05/21/24 11/10/24 acetaminophen 500 mg tablet 1,000 mg PO TID PRN Pain 09/28/24 11/10/24 clonazepam 1 mg tablet 1 mg PO DAILY 09/28/24 11/10/24 omeprazole 20 mg tablet,delayed 20 mg PO DAILY@0630 09/28/24 11/10/24 release buprenorphine HCl 2 mg sublingual 4 mg sublingual Q6H PRN Pain 11/06/24 11/10/24 tablet (Scale Score 7-10) oxycodone 5 mg tablet 20 mg PO 5XD PRN Pain (Scale Score 11/06/24 11/10/24 4-6) Previous Rx's ?Medication ?Instructions ?Recorded theophylline 400 mg 400 mg PO DAILY #30 caps 10/06/24 capsule,extended release 24 hr (Roque-24) ferrous sulfate 324 mg (65 mg 324 mg PO DAILY #30 tabs 10/19/24 iron) tablet,delayed release lisinopril 10 mg tablet 10 mg PO DAILY #90 tabs 10/27/24 acetazolamide 250 mg tablet 250 mg PO DAILY #7 tabs 11/08/24 furosemide 80 mg tablet (Lasix) 80 mg PO DAILY #30 tabs 11/08/24 atorvastatin 80 mg tablet 80 mg PO DAILY #90 tabs 11/14/24 diltiazem HCl 240 mg capsule,24 240 mg PO DAILY #90 caps 11/14/24 hr,extended release (Tiadylt ER) omeprazole 20 mg capsule,delayed 20 mg PO DAILY #90 caps 11/14/24 release cephalexin 500 mg capsule 500 mg PO Q6H #28 caps 11/28/24 Allergies Allergy/AdvReac Type Severity Reaction Status Date / Time gabapentin Allergy Mild Anxiety Verified 12/10/24 02:00 morphine [MORPHINE] Allergy Unknown ANAPHALAXIS, Verified 12/10/24 02:00 anaphylaxis propofol [From Diprivan] Allergy Anaphylaxis Verified 12/10/24 02:00 Review of Systems Review of Systems: Constitutional : No Weight loss, No Fever, No Chills, No Night Sweats, No Fatigue, No Malaise ENT/Mouth : No Hearing loss, No Ear Pain, No Nasal Congestion, No Sinus Pain, No Hoarseness, No sore throat, No Rhinorrhea, No Swallowing Difficulty Eyes: No Eye Pain, No Swelling, No Redness, No Foreign Body, No Discharge, No Vision Changes Cardiovascular : Complaining of chest tightness along with shortness of breath, no pain, no palpitations Respiratory : complaining of cough, sputum production, wheezing, shortness of breath, worse with exertion Gastrointestinal : No Nausea, No Vomiting, No Diarrhea, No Constipation, No abdominal Pain, No Hematochezia, No Melena Genitourinary : no irregular bleeding, No Dysuria, No Urinary Frequency, No Hematuria, No Urinary Incontinence, No Urgency, No Flank Pain, No Urinary Flow Changes, No Hesitancy Musculoskeletal : No joint pain, No Myalgias, No Joint Swelling Skin : No Skin Lesions, No rash Neuro : No Weakness, No Numbness, No Paresthesias, No Loss of Consciousness, No Dizziness, No Headache Psych : No Anxiety/Panic, No Depression, No SI/HI/AH/VH, No Social Issues, Heme/Lymph: No Bruising, No Bleeding,No Lymphadenopathy Endocrine : No Polyuria, No Polydipsia, No Temperature Intolerance PMFSH Past Medical History Medical History COPD (chronic obstructive pulmonary disease) Chronic hypoxic respiratory failure Hypoventilation associated with obesity Pickwickian syndrome DM type 2 (diabetes mellitus, type 2) Shortness of breath Influenza A Sepsis Acute on chronic heart failure with preserved ejection fraction (HFpEF) Acute exacerbation of chronic obstructive pulmonary disease BMI 50.0-59.9, adult VERN (acute kidney injury) Enterococcus faecalis infection MSSA (methicillin susceptible Staphylococcus aureus) MRSA (methicillin resistant staph aureus) culture positive Encounter for management of wound VAC Chronic osteomyelitis Hypertension Iron deficiency anemia COPD (chronic obstructive pulmonary disease) Femur fracture Crohn's colitis Morbid obesity due to excess calories Closed tibia fracture Acute on chronic respiratory failure with hypoxia and hypercapnia Nonrheumatic mitral (valve) stenosis Paroxysmal atrial fibrillation Dyspnea Chronic hypercapnic respiratory failure Opioid use disorder Surgical History Status post incision and drainage Hx of cholecystectomy History of open reduction and internal fixation (ORIF) procedure Status post open reduction and internal fixation (ORIF) of fracture Recent surgical procedure on lower extremity Family History Family History Other Adopted Social History Social History Household Members: Significant Other Household Members Other:: , [place]. Daughter Carolyn, 21. Daughter's Boyfriend, 22. Neice, 21 Housing: House Do you presently have visiting nurse or other home services: Yes Alcohol intake: never Comment: COUNTS CORRECT Patient Tobacco Use Status: Former Tobacco user Years Smoked: 25 Smoked in Last 30 Days: No e-Cigarette/Vaping Use: Never Used Second Hand Smoke Exposure: No Use of substances other than those prescribed or required for medical reasons: No Advance Directives: Yes Advance Directives on File: Yes Advance Directives Date on File: 12/16/20 service: No Current occupational status: disabled Cognitive needs: No Hearing needs: No Vision needs: Yes Physical Exam Vital Signs: Vital Signs: Last Vital Signs Temp 98.1 F 12/10/24 04:07 Pulse 79 12/10/24 04:07 Resp 17 12/10/24 04:07 BP 112/50 L 12/10/24 04:07 Pulse Ox 89 L 12/10/24 04:07 O2 Del Method CPAP 12/10/24 04:07 BMI result Body Mass Index 51.1 Course Course Course Narrative: patient is empirically being treated with IV fluids based on ideal weight of 46 kg, patient is obese. Patient is also being given IV antibiotics Medications Administered Discontinued Medications Generic Name Dose Route Start Last Admin Trade Name Freq PRN Reason Stop Dose Admin Albuterol/Ipratropium 3 ml 12/10/24 02:04 12/10/24 02:06 Albuterol/Iprat 2.5/0.5mg 3 Ml Ampul.Neb INHALE 12/10/24 02:05 3 ml ONCE ONE Administration Ceftriaxone Sodium 1 gm 12/10/24 02:00 12/10/24 02:25 Ceftriaxone Sodium 1 Gm Vial IVPUSH 12/10/24 02:01 1 gm ONCE ONE Administration Sodium Chloride 2,000 mls @ 999 mls/hr 12/10/24 02:00 12/10/24 02:40 Ns IVCONT 12/10/24 04:00 999 mls/hr .Q2H1M ONE Administration Azithromycin 500 mg/ Sodium 250 mls @ 125 mls/hr 12/10/24 02:00 12/10/24 02:40 Chloride IV 12/10/24 03:59 125 mls/hr ONCE ONE Administration Magnesium Sulfate 2 gm in 50 mls @ 25 mls/hr 12/10/24 02:00 12/10/24 02:40 Magnesium Sulfate/H2o IV 12/10/24 03:59 25 mls/hr ONCE ONE Administration Methylprednisolone Sodium Succinate 125 mg 12/10/24 02:00 12/10/24 02:26 Methylprednisolone Sod Succ 125 Mg Vial IVPUSH 12/10/24 02:01 125 mg ONCE ONE Administration Medical Decision Making Medical Decision Making MDM Narrative: my interpretation of EKG: Normal sinus rhythm, heart rate 94, nonspecific ST segment abnormalities, no T-wave inversion, QTC 450 patient's white blood cell count 10.4, patient chronically anemic with a hemoglobin of 9.2, hematocrit 31.6, platelets 241. Patient's pH within normal limits, elevated bicarb which is chronic for the patient, pCO2 75, at patient's baseline. patient's creatinine is elevated from baseline, 2.67 today, previously last month 1.06 Patient uses CPAP at home, patient was put on CPAP Given the time of night at this time blood pressure stable at this time, 02:33, sepsis is not suspected. patient has already been covered with IV fluids and antibiotics chest x-ray does not show any acute abnormalities. Chronic vascular congestion. Even on CPAP, when patient falls asleep, patient's oxygen saturation dropped to the mid 80s. I discussed the patient with Dr. Willard, patient being admitted Differential Diagnosis Differential Diagnoses: The differential diagnosis associated with the presentation includes ( asthma, chronic lung disease, viral illness, pneumonia) Admission/Observation Consideration of admission/observation: Escalation of care including admission/observation considered Consult Healthcare Provider Management of the patient was discussed with: Hospitalist Lab Data MDM Lab Attestation statement: I reviewed the patient's lab results. 12/10/24 02:15 12/10/24 02:15 Labs: Lab Results 12/10/24 12/10/24 12/10/24 Range/Units 02:15 02:20 02:37 WBC 10.4 (4.8-10.8) X10*3/uL RBC 3.63 L (4.20-5.50) X10*6/uL Hgb 9.2 L (12.0-16.0) g/dl Hct 31.6 L (37.0-47.0) % MCV 87.1 (80.0-98.0) fL MCH 25.3 L (27.0-33.0) pg MCHC 29.1 L (31.0-35.0) g/dl RDW 17.4 H (11.0-16.0) % Plt Count 241 D (160-400) X10*3/uL MPV 9.7 (9.4-12.3) fL Immature Gran % (Auto) 0.5 H (0.0-0.4) % Neut % (Auto) 81.4 H (45-73) % Lymph % (Auto) 9.5 L (20-40) % [place] % (Auto) 5.6 (2-11) % Eos % (Auto) 2.7 (0-4) % Baso % (Auto) 0.3 (0-2) % Lymph # (Auto) 1.0 L (1.2-4.9) X10*3/uL [place] # (Auto) 0.6 (0.1-1.2) X10*3/uL Eos # (Auto) 0.3 (0.0-0.4) X10*3/uL Baso # (Auto) 0.0 (0.0-0.2) X10*3/uL Abs Immat Gran (auto) 0.05 H (0.00-0.03) X10*3/uL Absolute Neuts (auto) 8.4 H (2.0-8.3) x10*3/uL Absolute Nucleated RBC 0.000 (0.0-0.012) X10*3/uL Nucleated RBC % (auto) 0.0 (0.0-0.2) /100WBC PT 11.6 (10.9-12.4) SEC INR 1.0 (0.9-1.1) VBG pH 7.39 (7.32-7.43) VBG pCO2 75 mmHg VBG pO2 51 mmHg VBG HCO3 46 H (22-26) mmol/L VBG O2 Saturation 75.0 % VBG Base Excess 18.3 mmol/L Sodium 145 (135-145) mmol/L Potassium 4.0 (3.3-5.1) mmol/L Chloride 94 L (96-108) mmol/L Carbon Dioxide 38 H (22-29) mmol/L Anion Gap 17 (12-20) BUN 53 H (9-16) mg/dL Creatinine 2.67 H (0.5-1.4) mg/dL Estim Creat Clear Calc 26.4 Estimated GFR 18 Random Glucose 167 H (60-115) mg/dL Lactic Acid 1.3 (0.5-2.0) mmol/L Calcium 8.9 (8.4-10.2) mg/dL Magnesium 2.1 (1.6-2.6) mg/dL Total Bilirubin 0.4 (0.0-1.0) mg/dL Direct Bilirubin 0.2 (0.0-0.5) mg/dL AST 19 (5-31) U/L ALT < 6 (0-31) U/L Alkaline Phosphatase 109 (39-117) U/L Troponin I High Sens 12.1 D (<3.5-17.0) ng/L B-Natriuretic Peptide 54 (<100) pg/mL Total Protein 6.7 (6.5-8.0) g/dL Albumin 3.7 (3.5-5.0) g/dL Influenza Type A (PCR) NEGATIVE (Negative) Influenza Type B (PCR) NEGATIVE (Negative) RSV RNA Qual (PCR) NEGATIVE (Negative) SARS-CoV-2 RNA (RT-PCR) NEGATIVE (Negative) Independent Interpretation I performed an independent interpretation of an: EKG and Plain X-Ray Radiology Impression Discussion of test interpretation with radiology: I have reviewed the radiologist's reading. Radiologist Impression: Perihilar and basilar edema or infiltrates. Enlarged cardiac silhouette. No acute fracture. Critical Care Time Critical Care Time Critical Care Time: Yes Total Critical Care Time: 60 Attestation: I have personally provided critical care time. Time includes review of lab data, radiology results, discussion with consultants, and monitoring for potential decompensation. Intervention performed as documented. Discharge Plan Discharge Clinical Impression: Hypoxic respiratory failure, VERN (acute kidney injury) Patient Disposition: Admitted As Inpatient Print Language: Japanese
[2024-12-10] MEDS: Albuterol/Iprat 2.5/0.5MG 3 ML AMPUL.NEB INHALE (02:06)
[2024-12-10 02:20] LABS: MANUAL DIFF FLAG NO
[2024-12-10 02:21] LABS: Basophils Percent Auto 0.3 % (0-2); Eosinophils Absolute Auto 0.3 X10*3/uL (0.0-0.4); Eosinophils Percent Auto 2.7 % (0-4); Hematocrit 31.6 % (37.0-47.0); Hemoglobin 9.2 g/dl (12.0-16.0); Imm Gran Abs Auto 0.05 X10*3/uL (0.00-0.03); Imm Gran Pct Auto 0.5 % (0.0-0.4); Lymphocytes Percent Auto 9.5 % (20-40); Mean Corpuscular HGB Conc 29.1 g/dl (31.0-35.0); Mean Corpuscular Hemoglobin 25.3 pg (27.0-33.0); Mean Corpuscular Volume 87.1 fL (80.0-98.0); Mean Platelet Volume 9.7 fL (9.4-12.3); Monocytes Absolute Auto 0.6 X10*3/uL (0.1-1.2); Monocytes Percent Auto 5.6 % (2-11); Neutrophils Absolute Auto 8.4 x10*3/uL (2.0-8.3); Neutrophils Percent Auto 81.4 % (45-73); Platelet Count 241 X10*3/uL (160-400); Red Blood Count 3.63 X10*6/uL (4.20-5.50); Red Cell Distribution Width 17.4 % (11.0-16.0); White Blood Count 10.4 X10*3/uL (4.8-10.8)
[2024-12-10 02:22] LABS: Venous Blood Gas Refer to POC result
[2024-12-10 02:24] LABS: VBG Base Excess 18.3 mmol/L; VBG HCO3 46 mmol/L (22-26); VBG pCO2 75 mmHg; VBG pH 7.39 (7.32-7.43); VBG pO2 51 mmHg
[2024-12-10] MEDS: cefTRIAXone sodium 1 GM VIAL IVPUSH (02:25)
[2024-12-10] MEDS: Magnesium Sulfate/H2O 2 GM/50 ML PIGGYBACK IV (02:40)
[2024-12-10] MEDS: Azithromycin 500 MG in 0.9 % Sodium Chloride 250 ML 125 MG IV (02:40)
[2024-12-10] MEDS: 0.9 % Sodium Chloride 2,000 ML 999 ML IVCONT (02:40)
--- NOTE | 2024-12-10 02:44 | MHC.EDTECH ---
unable to get pt shirt off due to being on hiflo. pt placed on a bus driver/monitor fall risk precaution socks tied on bed railings due to pt leg swelling. fall risk precaution wristband put on pt
[2024-12-10 02:51] LABS: Troponin-I High Sensitivity 12.1 ng/L (<3.5-17.0)
[2024-12-10 02:59] LABS: B Type Natriuretic Peptide 54 pg/mL (<100)
[2024-12-10 03:02] LABS: Alanine Aminotransferase < 6 U/L (0-31); Albumin Level 3.7 g/dL (3.5-5.0); Alkaline Phosphatase 109 U/L (39-117); Anion Gap 17 (12-20); Aspartate Amino Transferase 19 U/L (5-31); Bilirubin Direct 0.2 mg/dL (0.0-0.5); Bilirubin Total 0.4 mg/dL (0.0-1.0); Blood Urea Nitrogen 53 mg/dL (9-16); Calcium 8.9 mg/dL (8.4-10.2); Carbon Dioxide 38 mmol/L (22-29); Chloride 94 mmol/L (96-108); Creatinine Clr Calc Pharmacy 26.4; Estimated Glomerular Filt Rate 18; Glucose Random 167 mg/dL (60-115); Magnesium 2.1 mg/dL (1.6-2.6); Sodium 145 mmol/L (135-145); Total Protein 6.7 g/dL (6.5-8.0)
[2024-12-10 03:05] LABS: Influenza A PCR NEGATIVE (Negative); Influenza B PCR NEGATIVE (Negative); Resp Syncy Virus RNA Qual PCR NEGATIVE (Negative); SARS COV2 PCR INHOUSE NEGATIVE (Negative)
[2024-12-10 03:07] LABS: Lactic Acid 1.3 mmol/L (0.5-2.0)
[2024-12-10 03:14] LABS: Prothrombin Time 11.6 SEC (10.9-12.4)
--- NOTE | 2024-12-10 03:25 | PC.NURSE ---
Addendum entered by Emilie Hull RN 12/10/24 05:59: Per MD Willard, albumin infusion stopped, pt only received 5.8ml. Addendum entered by Emilie Hull RN 12/10/24 05:21: Placed purwick on pt with 2 EDT, pt tolerated well. pt resting comfortably in bed symmetrical rise and fall of chest noted. call chavez within reach. plan of care ongoing Addendum entered by Emilie Hull RN 12/10/24 04:14: pt placed on bipap by respiratory therapist. Addendum entered by Emilie Hull RN 12/10/24 03:30: cultures and labs drawn prior to medication administration. This RN forgot to amend the cultures prior to sending. Original Note: pt 64 yo female biba from home with complaint of sob. pt has known COPD and wears 2-3L at baseline. Pt states today she tried nebulizer treatments at home but no relief. Upon EMS arrival pts O2 sat was found to be 80% on RA, EMS placed pt on CPAP and brought her in to the ED. Pt states she also suffers from anxiety which leads to her work of breathing. Upon arrival to the ED pt was found to be 80% on RA. Pt was placed on CPAP by respiratory and pt O2 sat 90-92%. Pt mentioned having a recent infection that she is taking abx for. Pt was noted to have a rectal temp of 100F. Labs and cultures drawn. Pt medicated per sep.
--- OUTSIDE RECORDS SUMMARY | 2024-12-10 03:47 | XMS_ITS | Clinical Summary ---
Author Organization [facility] Address [address] [place] [address] Care Team Providers Care Lead Manufacturing Technician Name Role Phone Evin Fan MD Primary Care Provider [phone] Allergies Active Allergy Reactions Criticality Noted Date [...] topic Insurance MEDICARE PART A & B [facility] Care Teams Lead Manufacturing Technician Relationship Specialty Start Date End Date Evin Fan MD [address] [place] [address] [place] [address] PCP - General Family Medicine 01/20/21
--- OUTSIDE RECORDS SUMMARY | 2024-12-10 03:47 | XMS_ITS | Data Portability ---
Author Organization [place] [facility] Ajay Lin [facility] Address [address] [place] [address] Care Team Providers Care Bandoleer Packer Name Role Phone [facility] Primary Care Pro vider Assessment Encounter Date [...] a nonoperative mind set; recheck as needed [email or web address] Not available 11/24/2023 10:54:02 02/22/2024 02/22/2024 CC [...] be taken - expectations would be possible patient relations specialist wound closure, ongoing ABX would be necessary and there would be no intent to cure the infection after fracture fixation. 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 Results Procedure: Wound Vacuum Dressing Change Description: [...] dressing regularly with wound care nurse from [facility]. -Check wound in 6-8 weeks [...] care clinic for additional input if needed. [email or web address] Not available 04/17/2024 21:48:46 06/01/2024 06/01/2024 History [...] weeks or sooner if any flare-ups occur. [email or web address] Not available 06/07/2024 22:37:13 Plan of Treatment [...] rt femur 2v global 2023 024 [email or web address] [facility], [address], [place], [address], 4 07:22:36 XR, femur, 2 or more view - 315 rt femur 2v new pt 2023 024 [email or web address] [facility], [address], [address], [place], [address], 4 16:27:27 Medication Orders None recorded. Patient TargetsNo targets recorded. Patient InstructionsNo instructions recorded. Reason for Referral Right distal lateral thigh w ound, wound VAC change every 48-72 hours, with black granular foam sponge, and -125 mmHg suction. Wound tunnels distally about 4 cm, and laterally i.e. deep she is about 3-1/2 cm. Referring Physician: Juanjose Dangelo, Orthopedic Surgery, [id number] Encounter Date: 04/07/2024 Results Created Date Observation Date Name Description Value Unit Range Abnormal Flag Note LastModifiedBy Organization Detail LastModifiedTime 04/07/2004/07/2024 XR, femur , 2 or more view [email or web address] ?Encry pted=s hAaTro YD8dLq bEUv6g %2BXZw aYqtaq 0bqfl% 2Fg9IQ a4ajBk vP9nXo QUaueC m3YtLR FvZlgJ JJ8mAn HZtai3 6v0451 AC0Kqa n6MU6S iKiQtr MwF INTERFACE [facility] [address], [place], [address], 04/07/2024 11:10:25 04/07/20 24 04/07/2024 XR, femur , 2 or more view [email or web address] ?Encry pted=s hAaTro YD8dLq bEUv6g %2BXZw aYqtaq 0bqfl% 2Fg9IQ a4ajBk vP9nXo QUaueC m3YtLR FvZlgJ JJ8mAn HZtai3 2f6224 AC0Kqa n6MU6S iKiQtr MwF INTERFACE [facility] [address], [place], [address], 04/07/2024 11:10:27 Result Notes None recorded. Problems Name Problem SNOMED Code Status Onset Date Resolution Date Notes Provider Name and Address Organization Details Recorded Time No complaints 491388624 Active Status : 'A'; Not Available [facility] 4 09:21:30 Chronic osteomyeli tis of femur 789592619 Active 2023 Katina Mills MD [address], [place], [address] , [facility] 4 11:51:08 Chronic osteomyeli tis of femur with draining sinus 4621658213161 03 Active 2023 Katina Mills MD [address], [place], [address] , [facility] 4 11:52:00 Open wound of thigh 912419494 Active 2023 Katina Mills MD [address], [place], [address] , [facility] 4 16:45:16 Infection AND/OR inflammato ry reaction due to internal prosthetic device, implant AND/OR graft 91231682 Active 2023 Katina Mills MD [address], [place], [address] , [facility] 4 16:45:24 Thigh pain 43529047 Active 2023 JOHN rangel [facility] 4 13:29:20 Thigh pain 08951884 Active 2023 JOHN rangel [facility] 4 13:29:34 Pain of right thigh 6659063143978 07 Active 2023 JOHN rangel [place] [facility] 4 13:30:16 Problem Notes None recorded. Procedures Surgical History None recorded. Imaging Results Imaging Date Name Status LastModified by Organiz ation Details LastModified Time 04/07/2024 XR, femur, 2 or more view completed INTERFACE [facility] [address], [place], [address], 04/07/2024 11:10:25 04/07/2024 XR, femur, 2 or more view completed INTERFACE [facility] [address], [place], [address], 04/07/2024 11:10:27 Procedure Notes None recorded. Medical Equipment None Reported. Allergies Allergen ID Allergen Name Allergen Category Reaction Reaction Severity Criticality Documentation Date Start Date Code Code System Note Provider Name and Address Organization Details Recorded Time 64732 morphine sulfate medicatio n Not available Not available Not available 09/27/20232020 48217 RxNorm Not Available [facility] 4 12:45:16 Medications Name Sig Start Date [...] Updated DateTime 11/24/2023 156.21 cm 50.2 kg/m2 132303.94 g VIKTOR ALVARESOUR [facility] 11/24/2023 09:55:18 Date Recorded Body height Body mass index (BMI) Body weight Provider Name and Address Organization Details Last Updated DateTime 02/22/2024 156.21 cm 50.2 kg/m2 959716.94 g VIKTOR ALVARESOUR [facility] 02/22/2024 14:48:54 Date Recorded Body height Body mass index (BMI) Body weight Provider Name and Address Organization Details Last Updated DateTime 04/07/2024 156.21 cm 50.2 kg/m2 689217.94 g VIKTOR MARCIALYMOUR [facility] 04/07/2024 10:56:59 Date Recorded Body height Body mass index (BMI) Body weight Provider Name and Address Organization Details Last Updated DateTime 06/01/2024 156.21 cm 50.2 kg/m2 696834.94 g VIKTOR MARCIALYMOUR [facility] 06/01/2024 14:26:08 Social History None recorded. Functional Status None recorded. Mental Status None recorded. Family History Nothing Reported. Medical History Condition Response Allergies/Hayfever Y Coronary Artery Disease N Breathing or lung disorders Y Anxiety/Depression Y Emphysema N Nerve Disorders N Thyroid Problems N COPD Y Pacemaker N Kidney/Bladder Problems N Anemia N Vascular Disease N Heart Trouble Y Heart Attack (CT) N Gastrointestinal Disease Y Cholesterol N Diabetes [...] SNOMED-CT Code Diagnosis ICD10 Code Diagnosis Note [id number] MD Cristina Morton [address] [place] [address] [address] [place] [address] 11/24/2023 09:44:05 11/24/2023 16:25:12 Fracture of femur 15353946 S72.91XD [id number] MD Cristina Morton [address] [place] [address] [address] [place] [address] 02/22/2024 14:35:57 03/20/2024 05:41:20 Chronic osteomyelitis of femur 344252670 M86.659 Infection AND/OR inflammatory reaction due to internal prosthetic device, implant AND/OR graft 93832623 T82.7XXS Open wound of thigh 1256 27834 S71.101A Chronic os teomyelitis of femur with draining sinus 7553379095 53756 M86.455 [id number] MD Cristina Ambrose [address] [place] [address] [address] [place] [address] 04/07/2024 10:50:34 04/20/2024 07:22:36 Closed fracture of shaft of femur 53102161 S72.301D Open wound of thigh 1256 69523 S71.101D [id number] MD Cristina Ambrose [address] [place] [address] [address] [place] [address] 06/01/2024 14:12:22 06/20/2024 09:07:48 Chronic osteomyelitis of right femur 5721715447 563065 M86.651 Chronic os teomyelitis of femur with draining sinus 0628612377 31057 M86.451 Health Concerns Section Related Observation LastModified by Organization Detai ls LastModified Time None Recorded Concern Status LastModified by Organization Details LastModified Time None Recorded Advance Directives Directive None Recorded Payers Encounter Date Sequence Insurance Name Policy Number Policy Garcia Covered Member ID Garcia Member ID Guarantor Name 11/24/2023 1 [place] [facility] Sample [id number] [place] 11/24/2023 2 [place] [facility] Sample [id number] [place] 02/22/2024 1 [place] [facility] Sample [id number] [place] 02/22/2024 2 [place] [facility] Sample [id number] [place] 04/07/2024 1 [place] [facility] Sample [id number] [place] 04/07/2024 2 [place] [facility] Sample [id number] [place] 06/01/2024 1 [place] [facility] Sample [id number] [place] 06/01/2024 2 [place] [facility] Sample [id number] [place] Sample OBGyn Episode No OBEpisode recorded.
--- OUTSIDE RECORDS SUMMARY | 2024-12-10 03:47 | XMS_ITS | Clinical Summary ---
Author Organization [facility] Facility Address [address] [address] Care Team Providers Care Air Control Electronics Operator Name Role Phone Unavailable Primary Care [...]
--- NOTE | 2024-12-10 04:27 | P.HPHOSP_ITS ---
History of Present Illness Date of Service: 12/10/24 Attending physician on admission: Ayad Willard Chief Complaint: Dyspnea Pt is a 64 yo female with relative PMH COPD, on BIpap at home, PNA, pulmonary HTN, Pickwickian syndrome, CKD stage 3, PAFIB not on AC, presents to ED with complaint of SOB at rest and possible panic attack. Patient is seen in the emergency department and was somnolent on BiPAP. Patient does use BiPAP at home. Nursing at the bedside was able to provide some history. Patient often comes in with similar complaints but is often more alert and communicative. VBG pH 7.39, pCO2 75, PO2 51, bicarb 46. CO2 on BMP 38. UA with reflex requested. Blood cultures times 2 were drawn. EKG normal sinus rhythm with no ischemic changes, QTC 450.. BNP 54, troponin 12.1. Patient came in with a rectal temp of a 100 degrees and hypoxia of 89 %. Patient has no leukocytosis or bandemia. Lactic acid 1.3. Patient's creatinine 2.67 with a creatinine clearance of 26.4 and a GFR of 18. Fungal rash noted under B breasts and perineal area. Patient being admitted for acute hypoxic respiratory failure, acute hypercarbic respiratory failure, COPD exacerbation, VERN, and fungal rash Review of Systems 2 Review of Systems: Yes Unobtainable due to mental condition (somnolent ) [facility] Medical History COPD (chronic obstructive pulmonary disease) Chronic hypoxic respiratory failure Hypoventilation associated with obesity Pickwickian syndrome DM type 2 (diabetes mellitus, type 2) Shortness of breath Influenza A Sepsis Acute on chronic heart failure with preserved ejection fraction (HFpEF) Acute exacerbation of chronic obstructive pulmonary disease BMI 50.0-59.9, adult VERN (acute kidney injury) Enterococcus faecalis infection MSSA (methicillin susceptible Staphylococcus aureus) MRSA (methicillin resistant staph aureus) culture positive Encounter for management of wound VAC Chronic osteomyelitis Hypertension Iron deficiency anemia COPD (chronic obstructive pulmonary disease) Femur fracture Crohn's colitis Morbid obesity due to excess calories Closed tibia fracture Acute on chronic respiratory failure with hypoxia and hypercapnia Nonrheumatic mitral (valve) stenosis Paroxysmal atrial fibrillation Dyspnea Chronic hypercapnic respiratory failure Opioid use disorder Family History Other Adopted Surgical History Status post incision and drainage Hx of cholecystectomy History of open reduction and internal fixation (ORIF) procedure Status post open reduction and internal fixation (ORIF) of fracture Recent surgical procedure on lower extremity Social History Household Members: Significant Other Household Members Other:: , Hoa. Daughter Carolyn, 21. Daughter's Boyfriend, 22. Piliice, 21 Housing: House Do you presently have visiting nurse or other home services: Yes Alcohol intake: never Comment: COUNTS CORRECT Patient Tobacco Use Status: Former Tobacco user Years Smoked: 25 Smoked in Last 30 Days: No e-Cigarette/Vaping Use: Never Used Second Hand Smoke Exposure: No Use of substances other than those prescribed or required for medical reasons: No Advance Directives: Yes Advance Directives on File: Yes Advance Directives Date on File: 12/16/20 service: No Current occupational status: disabled Cognitive needs: No Hearing needs: No Vision needs: Yes Ebola Risk: Travel/Contact With Anyone From Affected Area/s: No Has Patient Experienced Ebola Symptoms: No Meds Allergies Allergy/AdvReac Type Severity Reaction Status Date / Time gabapentin Allergy Mild Anxiety Verified 12/10/24 02:00 morphine [MORPHINE] Allergy Unknown ANAPHALAXIS, Verified 12/10/24 02:00 anaphylaxis propofol [From Diprivan] Allergy Anaphylaxis Verified 12/10/24 02:00 Active Medications: Current Medications Acetaminophen (Acetaminophen 325 Mg Tablet) 650 mg PO Q6H PRN PRN Reason: Pain, Mild 1-3,fever,headache Melatonin (Melatonin 3 Mg Tablet) 6 mg PO BEDTIME PRN PRN Reason: Insomnia Sodium Chloride (0.9 % Sodium Chloride Flush 3 Ml Syringe) [facility] Medications ?Medication ?Instructions ?Recorded ?Confirmed ?Last Taken ?Type fluticasone fur. 100 mcg-umeclid 1 ea inhalation DAILY 04/24/24 11/10/24 11/05/24 History 62.5 mcg-vilant 25 mcg inhalat.powder (Trelegy Ellipta) cholecalciferol (vitamin D3) 50 50 mcg PO DAILY 05/21/24 11/10/24 10/07/24 History mcg (2,000 unit) tablet clonazepam 0.5 mg tablet 0.5 mg PO BID PRN Anxiety 05/21/24 11/10/24 10/07/24 History temazepam 30 mg capsule 30 mg PO BEDTIME PRN Sleep 05/21/24 11/10/24 10/07/24 History acetaminophen 500 mg tablet 1,000 mg PO TID PRN Pain 09/28/24 11/10/24 10/07/24 History clonazepam 1 mg tablet 1 mg PO DAILY 09/28/24 11/10/24 10/07/24 History omeprazole 20 mg tablet,delayed 20 mg PO DAILY@0630 09/28/24 11/10/24 11/05/24 History release buprenorphine HCl 2 mg sublingual 4 mg sublingual Q6H PRN Pain 11/06/24 11/10/24 Unknown History tablet (Scale Score 7-10) oxycodone 5 mg tablet 20 mg PO 5XD PRN Pain (Scale Score 11/06/24 11/10/24 Unknown History 4-6) Physical Exam 2 Vital Signs and Narrative: Vital Signs: Last Vital Signs Temp 98.1 F 12/10/24 04:07 Pulse 79 12/10/24 04:07 Resp 17 12/10/24 04:21 BP 112/50 L 12/10/24 04:07 Pulse Ox 89 L 12/10/24 04:07 O2 Del Method CPAP 12/10/24 04:07 BMI result Body Mass Index 51.1 Patient is somnolent unable to provide HPI, review of systems or past medical or surgical history. Neuro: Patient did open eyes to verbal stimulation only EYES: PERRLA ENT: Hearing intact, BiPAP mask on, unable to examine the oral cavity Cardiac: S1 S2 RRR, no murmur, no JVD, moderate edema bilateral lower extremities Pulmonary: lungs diminished bilaterally Abdominal: BS active in all 4 quadrants, no guarding, tenderness, rebounding, obese MSK: Unable to assess : No bladder distention Extremities: Moderate edema in lower extremities, noted chronic skin changes in lower extremities no evidence of active cellulitis. Pulses palpable, right foot slightly warmer than left. Psych: Unable to assess Skin: Patient has fungal rash noted under both breasts in the perineal area. Patient's backside is intact with blanchable redness only. Results Labs 12/10/24 02:15 12/10/24 02:15 Labs: Laboratory Results - last 24 hr 12/10/24 12/10/24 12/10/24 02:15 02:20 02:37 MCV 87.1 MCH 25.3 L MCHC 29.1 L RDW 17.4 H Plt Count 241 D MPV 9.7 Immature Gran % (Auto) 0.5 H Neut % (Auto) 81.4 H Lymph % (Auto) 9.5 L [place] % (Auto) 5.6 Eos % (Auto) 2.7 Baso % (Auto) 0.3 Lymph # (Auto) 1.0 L [place] # (Auto) 0.6 Eos # (Auto) 0.3 Baso # (Auto) 0.0 Abs Immat Gran (auto) 0.05 H Absolute Neuts (auto) 8.4 H Absolute Nucleated RBC 0.000 Nucleated RBC % (auto) 0.0 PT 11.6 INR 1.0 VBG pH 7.39 VBG pCO2 75 VBG pO2 51 VBG HCO3 46 H VBG O2 Saturation 75.0 VBG Base Excess 18.3 Anion Gap 17 Estim Creat Clear Calc 26.4 Estimated GFR 18 Random Glucose 167 H Lactic Acid 1.3 Calcium 8.9 Magnesium 2.1 Total Bilirubin 0.4 Direct Bilirubin 0.2 AST 19 ALT < 6 Alkaline Phosphatase 109 B-Natriuretic Peptide 54 Total Protein 6.7 Albumin 3.7 Influenza Type A (PCR) NEGATIVE Influenza Type B (PCR) NEGATIVE RSV RNA Qual (PCR) NEGATIVE SARS-CoV-2 RNA (RT-PCR) NEGATIVE ECG Attestation: I personally reviewed and interpreted this ECG as follows: (Normal sinus rhythm no ischemic changes) Imaging Radiologist's Impressions: CXR Findings: Perihilar and basilar edema or infiltrates. Enlarged cardiac silhouette. No acute fracture. IMPRESSION: Enlarged cardiac silhouette with mild pulmonary vascular congestion. Assessment and Plan (1) Acute hypoxic respiratory failure: Status: Acute Plan Pt is a 64 yo female with relative PMH COPD, on BIpap at home, PNA, pulmonary HTN, Pickwickian syndrome, CKD stage 3, PAFIB not on AC present to ED with report fo SOB and panic attack. Pt was immediately started on BIPAP and hypoxia resolved. Pt remains somnolent likely from CO2 retention. Pt being admitted for acute hypoxix and hypercarbic respiratory failure with known COPD, VERN with CKD and fungal rash. Acute hypoxic respiratory failure -BiPAP initiated in the emergency department, patient uses BiPAP at home so ICU admission not indicated -duo nebs -patient is started on empiric antibiotics in the emergency department we will continue on ceftriaxone and azithromycin -VBG 7.41, 44, 1.3, 28 and 99 -avoid use of narcotics -CXR notes mild pulmonary edema, pt received 2 L in the ED, holding on givign lasix due to VERN and borderline hypotension -Methylprednisolone initiated in ED Acute hypercarbic respiratory failure -continue BIPAP -if no improvement with somnolence, consider CT scan, ABG -monitor closely COPD exacerbation -DUo nebs -BIPAP, oxygen -continue steroids -pulmonary toileting VERN -Pt has hx of CKD 3, levels are worse from resutls in October 2024 -nephrology consulted -strict I's and O's -avoid hypotension -avoid nephrotoxic meds including NSAIDs -metabolic alkalosis present with known respiraoty CO2 retention -BMP in AM -Albumin X1 for borderline BP, 95 systolic Fungal rash -nystatin powder ordered DVT prophylaxis: heparin sc MED REC pending FULL CODE confirmed via pt's chart Quality Stroke Does the patient have a stroke diagnosis?: No Reason for No Anti-thrombotic by Day Two: N/A - Med Ordered VTE Prior VTE?: No VTE Risk Level:: Medical - moderate - high VTE Device Contraindication: Treatment Not Tolerated VTE Drug Contraindication: N/A - Med Ordered
[2024-12-10] MEDS: Heparin Sodium,Porcine 5,000 UNIT/ML VIAL 5000 UNIT SUBCUT ×2 (06:03→17:36)
[2024-12-10] MEDS: Nystatin Powder 15 GM BOTTLE 1 APPL TOPICAL ×2 (09:08→14:07)
[2024-12-10] MEDS: 0.9 % Sodium Chloride Flush 3 ML SYRINGE IVFLUSH ×3 (09:09→21:09)
--- NOTE | 2024-12-10 09:11 | PC.NURSE ---
Alert and oriented, continues to bipap, vss, denies pain or discomfort
--- NOTE | 2024-12-10 09:53 | PC.NURSE ---
Patient requesting fluids, provider awar okay to trial off bipap. respiratory aware. patient 85% on 4 liters via NC, switched to non rebreather sating between 87-93%.
--- NOTE | 2024-12-10 10:22 | PC.NURSE ---
unable to tolerate oxy mask at 4 liters, desating to low 80`s and patient stating that she is not breathing well. Placed back on bipap respiratory and provider aware.
--- NOTE | 2024-12-10 10:30 | PHA.MEDREC ---
Addendum entered by David Blair RPh 12/10/24 18:23: Reviewed by [facility] Original Note: Pharmacy Consult ? Medication Reconciliation Pharmacy has completed the medication reconciliation. Spoke to pt to confirm meds. Per pt, lisinopril was dose increased to 30 mg BID. Also takes clonazepam 1 mg daily with 0.5 mg BID PRN. Called [place] + Used [facility] claim history to confirm meds as well.
--- NOTE | 2024-12-10 10:51 | PM.EVENT ---
Event Note Date of Service: 12/10/24 Event Note: Seen and examined this morning Follow-up for COPD exacerbation Patient is able to speak in full sentences denies shortness of breath at this time. Denies any significant coughing. However she was trialed off of BiPAP and had increased work of breathing and hypoxia and therefore was placed back on BiPAP. Pt is a 64 yo female with relative PMH COPD, on BIpap at home, PNA, pulmonary HTN, Pickwickian syndrome, CKD stage 3, PAFIB not on AC present to ED with report fo SOB and panic attack. Pt was immediately started on BIPAP and hypoxia resolved. Pt remains somnolent likely from CO2 retention. Pt being admitted for acute hypoxic and hypercarbic respiratory failure with known COPD, VERN with CKD and fungal rash. Acute hypoxic/hypercarbic respiratory failure due to COPD exacerbation continue Bipap Breathing treatments, systemic steroids Continue IV ceftriaxone, azithromycin Patient on multiple sedating medications we will minimize as much as possible CXR notes mild pulmonary edema, pt received 2 L in the ED, holding on giving lasix due to VERN and borderline hypotension VERN on CKD3 nephrotoxic meds including NSAIDs metabolic alkalosis present with known respiratory CO2 retention hold diuretics/nephrotoxins - Lasix, lisinopril on hold follow BMP Nephrology consult Chronic HFpEF diuretics on hold for VERN Fungal rash nystatin powder ordered GERD Continue omeprazole HLD Statin on hold for VERN Paroxysmal atrial fibrillation Continue diltiazem Not on anticoagulation ?chronic pain on buprenorphine scheduled and prn Mood disorder Continue p.r.n. dose of clonazepam, scheduled dose on hold to prevent sedation dvt ppx - heparin Time Spent With Patient Time: Total time managing care of this patient today ____ minutes.
[2024-12-10 10:57] LABS: Anion Gap 19 (12-20); Blood Urea Nitrogen 52 mg/dL (9-16); Calcium 8.3 mg/dL (8.4-10.2); Carbon Dioxide 32 mmol/L (22-29); Chloride 98 mmol/L (96-108); Creatinine Clr Calc Pharmacy 32.6; Estimated Glomerular Filt Rate 23; Glucose Random 243 mg/dL (60-115); Potassium 4.9 mmol/L (3.3-5.1); Sodium 144 mmol/L (135-145)
--- NOTE | 2024-12-10 12:56 | P.CONPL_ITS ---
History of Present Illness History of Present Illness Consult date: 12/10/24 Chief complaint: Dyspnea Narrative: 64-year-old lady with underlying COPD on 4-6 L of supplemental oxygen, ALEKSEY/ohs with chronic CO2 retention and suboptimal compliance with BiPAP, followed by Dr. Uri Thapa, CKD, AFib, pulmonary hypertension secondary to heart disease admitted on 12/10/2024 with dyspnea. Patient was started on empiric treatment for COPD exacerbation with systemic glucocorticoids, placed on BiPAP support despite having normal blood pH, and started on empiric coverage for community-acquired pneumonia. Review of Systems 2 Constitutional: Constitutional: Reports daytime sleepiness, Denies excessive sweating, Denies fatigue, Denies fever(s), Reports lethargy, Reports malaise, Denies night sweats, Denies snoring and Denies weight loss Eyes: Eyes: Denies blurry vision and Denies itchy eyes ENT: Denies nasal congestion, Denies post nasal drip, Denies sinus pain, Denies sinus pressure and Denies other ( Thrush) Cardiovascular: Cardiovascular: Denies chest pain, Reports pedal edema, Reports dyspnea, Reports dyspnea on exertion, Reports orthopnea and Denies paroxysmal nocturnal dyspnea Respiratory: Respiratory: Denies cough, Denies hemoptysis, Denies excessive phlegm production, Reports dyspnea, Reports dyspnea on exertion, Denies snoring and Denies wheezing Gastrointestinal: Gastrointestinal: Denies abdominal pain and Denies heartburn Musculoskeletal: Musculoskeletal: Denies myalgias, Denies arthralgias and Denies joint swelling Integumentary/Breasts: Skin/Breast: Denies rash Neurologic: Denies memory loss and Denies seizure-like activity Psychiatric: Psychiatric: Denies abnormal sleep pattern, Denies anxiety and Denies memory loss Endocrine: Endocrine: Denies excessive sweating, Denies fatigue and Denies heat intolerance Hematologic/Lymphatic: Hematologic/Lymphatic: Denies easy bruising Allergic/Immunologic: Allergic/Immunologic: Denies itchy eyes, Denies seasonal rhinorrhea and Denies wheezing PMFSH Past Medical History Medical History (Updated 12/10/24 @ 13:07 by Matti Anaya MD) COPD (chronic obstructive pulmonary disease) Chronic hypoxic respiratory failure Hypoventilation associated with obesity Pickwickian syndrome DM type 2 (diabetes mellitus, type 2) Shortness of breath Influenza A Sepsis Acute on chronic heart failure with preserved ejection fraction (HFpEF) Acute exacerbation of chronic obstructive pulmonary disease BMI 50.0-59.9, adult VERN (acute kidney injury) Enterococcus faecalis infection MSSA (methicillin susceptible Staphylococcus aureus) MRSA (methicillin resistant staph aureus) culture positive Encounter for management of wound VAC Chronic osteomyelitis Hypertension Iron deficiency anemia COPD (chronic obstructive pulmonary disease) Femur fracture Crohn's colitis Morbid obesity due to excess calories Closed tibia fracture Acute on chronic respiratory failure with hypoxia and hypercapnia Nonrheumatic mitral (valve) stenosis Paroxysmal atrial fibrillation Dyspnea Chronic hypercapnic respiratory failure Opioid use disorder Family History Family History Other Adopted Surgical History Surgical History Status post incision and drainage Hx of cholecystectomy History of open reduction and internal fixation (ORIF) procedure Status post open reduction and internal fixation (ORIF) of fracture Recent surgical procedure on lower extremity Social History Social History Household Members: Significant Other Household Members Other:: , Hoa. Daughter Carolyn, 21. Daughter's Boyfriend, 22. Neice, 21 Housing: House Do you presently have visiting nurse or other home services: Yes Alcohol intake: never Comment: COUNTS CORRECT Patient Tobacco Use Status: Former Tobacco user Years Smoked: 25 Smoked in Last 30 Days: No e-Cigarette/Vaping Use: Never Used Second Hand Smoke Exposure: No Use of substances other than those prescribed or required for medical reasons: No Advance Directives: Yes Advance Directives on File: Yes Advance Directives Date on File: 12/16/20 service: No Current occupational status: disabled Cognitive needs: No Hearing needs: No Vision needs: Yes Travel History Ebola Risk: Travel/Contact With Anyone From Affected Area/s: No Has Patient Experienced Ebola Symptoms: No Meds Allergies Allergy/AdvReac Type Severity Reaction Status Date / Time gabapentin Allergy Mild Anxiety Verified 12/10/24 02:00 morphine [MORPHINE] Allergy Unknown ANAPHALAXIS, Verified 12/10/24 02:00 anaphylaxis propofol [From Diprivan] Allergy Anaphylaxis Verified 12/10/24 02:00 Active Medications: Current Medications Acetaminophen (Acetaminophen 325 Mg Tablet) 650 mg PO Q6H PRN PRN Reason: Pain, Mild 1-3,fever,headache Albuterol/Ipratropium (Albuterol/Iprat 2.5/0.5mg 3 Ml Ampul.Neb) 3 ml INHALE Q4H PRN PRN Reason: Shortness of Breath/Wheezing Buprenorphine HCl (Buprenorphine Hcl 2 Mg Tab.Subl) 4 mg SUBLINGUAL DAILY PRN PRN Reason: Pain (Scale Score 7-10) Buprenorphine HCl (Buprenorphine Hcl 2 Mg Tab.Subl) 2 mg SUBLINGUAL BID [facility] Calcium Carbonate (Calcium Carbonate 750 Mg Tab.Chew) 750 mg PO Q4H PRN PRN Reason: Heartburn Ceftriaxone Sodium (Ceftriaxone Sodium 1 Gm Vial) 1 gm IVPUSH Q24H [facility] Clonazepam (Clonazepam 0.5 Mg Tablet) 0.5 mg PO BID PRN PRN Reason: Anxiety Diltiazem HCl (Diltiazem Hcl Cd 240 Mg Cap.Er.Deg) 240 mg PO DAILY [facility]; Protocol Ferrous Sulfate (Ferrous Sulfate 324 Mg Tablet.) 324 mg PO DAILY [facility] Heparin Sodium (Porcine) (Heparin Sodium,Porcine 5,000 Unit/Ml Vial) 5,000 unit SUBCUT Q12H [facility] Last Admin: 12/10/24 06:03 Dose: 5,000 unit Azithromycin 500 mg/ Sodium (Chloride) 250 mls @ 125 mls/hr IV Q24H [facility] Magnesium Hydroxide (Milk Of Magnesia 30 Ml Oral.Susp) 30 ml PO DAILY PRN PRN Reason: Constipation Melatonin (Melatonin 3 Mg Tablet) 6 mg PO BEDTIME PRN PRN Reason: Insomnia Methylprednisolone Sodium Succinate (Methylprednisolone Sod Succ 125 Mg Vial) 60 mg IVPUSH Q12H [facility] Nystatin (Nystatin Powder 15 Gm Bottle) 1 appl TOPICAL TID [facility]; Protocol Last Admin: 12/10/24 09:08 Dose: 1 appl Omeprazole (Omeprazole 20 Mg Capsule.) 20 mg PO DAILY@0630 [facility] Ondansetron HCl (Ondansetron Hcl 4 Mg/2 Ml Vial) 4 mg IVPUSH Q8H PRN PRN Reason: Nausea and Vomiting Senna (Sennosides 8.6 Mg Tablet) 17.2 mg PO BEDTIME [facility] Sodium Chloride (0.9 % Sodium Chloride Flush 3 Ml Syringe) 3 ml IVFLUSH QSHIFT [facility] Last Admin: 12/10/24 09:09 Dose: 3 ml Home Medications ?Medication ?Instructions ?Recorded ?Confirmed ?Last Taken ?Type fluticasone fur. 100 mcg-umeclid 1 ea inhalation DAILY 04/24/24 12/10/24 12/09/24 History 62.5 mcg-vilant 25 mcg inhalat.powder (Trelegy Ellipta) cholecalciferol (vitamin D3) 50 50 mcg PO DAILY 05/21/24 12/10/24 12/09/24 History mcg (2,000 unit) tablet clonazepam 0.5 mg tablet 0.5 mg PO BID PRN Anxiety 05/21/24 12/10/24 10/07/24 History temazepam 30 mg capsule 30 mg PO BEDTIME PRN Sleep 05/21/24 12/10/24 10/07/24 History acetaminophen 500 mg tablet 1,000 mg PO TID PRN Pain 09/28/24 12/10/24 10/07/24 History clonazepam 1 mg tablet 1 mg PO DAILY Anxiety 09/28/24 12/10/24 12/09/24 History buprenorphine HCl 2 mg sublingual 4 mg sublingual DAILY PRN Pain 11/06/24 12/10/24 Unknown History tablet (Scale Score 7-10) oxycodone 5 mg tablet 15 mg PO 5XD PRN Pain (Scale Score 11/06/24 12/10/24 Unknown History 4-6) buprenorphine HCl 2 mg sublingual 2 mg sublingual BID 12/10/24 12/10/24 12/09/24 History tablet lisinopril 10 mg tablet 30 mg PO BID 12/10/24 12/10/24 12/09/24 History omeprazole 20 mg capsule,delayed 20 mg PO DAILY@0630 12/10/24 12/10/24 12/09/24 History release Physical Exam 2 Vital Signs: Vital Signs: Last Vital Signs Temp 98.7 F 12/10/24 11:49 Pulse 62 12/10/24 11:49 Resp 18 12/10/24 11:49 BP 113/50 L 12/10/24 11:49 Pulse Ox 93 12/10/24 11:49 O2 Del Method BiPAP 12/10/24 11:49 O2 Flow Rate 4 12/10/24 09:58 BMI result Body Mass Index 51.1 Const: General: no acute distress and other (Somnolent, arousable) N utritional Appearance: obese and Edematous HEENT: Head: Yes atraumatic Eyes: General: appearance normal, both eyes and all related structures S clerae: sclerae normal EOM: EOMs intact bilaterally Neck: Neck: Yes supple Lymphatic: no lymphadenopathy noted Resp: Effort & Inspection: normal respiratory effort and no use of accessory muscles Auscultation: clear to auscultation bilaterally Cardio: Rate: regular rate Rhythm: regular rhythm Heart sounds: no gallops, no murmurs and no rubs Skin: General skin exam: other ( warm) Extrem: General: No clubbing, No cyanosis and Yes edema (3+ bilateral) Results Laboratory Findings 12/10/24 02:15 12/10/24 10:37 ABG, PT/INR, D-dimer: PT/INR, D-dimer PT 11.6 SEC (10.9-12.4) 12/10/24 02:37 INR 1.0 (0.9-1.1) 12/10/24 02:37 Abnormal lab findings: Abnormal Labs 12/10/24 12/10/24 12/10/24 02:15 02:20 10:37 RBC 3.63 L Hgb 9.2 L Hct 31.6 L MCH 25.3 L MCHC 29.1 L RDW 17.4 H Immature Gran % (Auto) 0.5 H Neut % (Auto) 81.4 H Lymph % (Auto) 9.5 L Lymph # (Auto) 1.0 L Abs Immat Gran (auto) 0.05 H Absolute Neuts (auto) 8.4 H VBG HCO3 46 H Chloride 94 L Carbon Dioxide 38 H 32 H BUN 53 H 52 H Creatinine 2.67 H 2.17 H Random Glucose 167 H 243 H Calcium 8.3 L D Assessment and Plan (1) Pulmonary hypertension: Status: Acute (2) COPD (chronic obstructive pulmonary disease): Qualifiers: COPD type: COPD with acute exacerbation Qualified Code(s): J44.1 - Chronic obstructive pulmonary disease with (acute) exacerbation Status: Acute (3) Chronic hypoxic respiratory failure: Status: Acute (4) History of chronic carbon dioxide retention: Status: Acute Plan Impression: 64-year-old lady with underlying morbid obesity, COPD on 4-6 L, ALEKSEY/ohs noncompliant with BiPAP, pulmonary hypertension secondary to heart disease admitted with dyspnea blood gases showed normal pH with compensated chronic hypercapnia. FiO2 requirements significantly different from baseline. Appears to have a component of pulmonary edema. Recommendations: Discontinue systemic glucocorticoids. Monitor off antibiotics. Start diuresis with Lasix drip and acetazolamide. Procedures Date of Service Date of Service: 12/10/24
--- NOTE | 2024-12-10 13:56 | PC.NURSE ---
patient alert and oriented, declined lunch. denies pain or discomfort. Patient wih purwick in place but had not voided this shift. bladder scanned 454mls, provider aware with order to straight cath. Straigh cathed for 800mls clear yellow urine , UA sent to lab. Patient provided with fluids. dropped of personal bipap, respiratory aware
[2024-12-10 13:58] LABS: Appearance Urine Clear; Color Urine Yellow; Glucose Urine UA Negative (Negative); Leukocyte Esterase Urine Negative (Negative); Nitrite Urine Negative (Negative); Specific Gravity - Urine 1.015 (1.005-1.025); Urine Blood Negative (Negative); Urine Ketones Negative (Negative); Urine Protein Negative (Neg-Trace)
--- NOTE | 2024-12-10 18:06 | PC.NURSE ---
bladder scanned for 159mls, per respiratory place on oxy mask for transfer ad will meet patient upstairs to place on personal bipap
[2024-12-10] MEDS: Temazepam 15 MG CAPSULE 30 MG PO (21:08)
[2024-12-11] VITALS (7 sets, daily range): BP systolic 116–156; BP diastolic 56–70; PULSE 62–72; RESP 16–20; TEMP 36.2–36.9; O2SAT 93–100; BMI 55.4
[2024-12-11] MEDS: cefTRIAXone sodium 1 GM VIAL IVPUSH (01:27)
[2024-12-11] MEDS: Azithromycin 500 MG in 0.9 % Sodium Chloride 250 ML 125 MG IV (01:28)
[2024-12-11] MEDS: Omeprazole 20 MG CAPSULE.DR PO (06:10)
[2024-12-11] MEDS: Heparin Sodium,Porcine 5,000 UNIT/ML VIAL 5000 UNIT SUBCUT ×2 (06:11→17:03)
[2024-12-11 07:12] LABS: Anion Gap 16 (12-20); Blood Urea Nitrogen 55 mg/dL (9-16); Calcium 8.8 mg/dL (8.4-10.2); Carbon Dioxide 36 mmol/L (22-29); Chloride 95 mmol/L (96-108); Creatinine Clr Calc Pharmacy 46.8; Estimated Glomerular Filt Rate 33; Glucose Random 186 mg/dL (60-115); Sodium 142 mmol/L (135-145)
[2024-12-11 07:20] LABS: B Type Natriuretic Peptide 502 pg/mL (<100)
--- NOTE | 2024-12-11 09:00 | MHC.CM.PN ---
This CM attempted to meet with the pt, she states she was just waking up, this CM will attempt to meet with pt at a later time to complete the CM intake assessment.
[2024-12-11] MEDS: Ferrous Sulfate 324 MG TABLET.DR PO (09:25)
[2024-12-11] MEDS: dilTIAZem HCL CD 240 MG CAP.ER.DEG PO (09:25)
--- NOTE | 2024-12-11 09:35 | PM.CNNEP ---
History of Present Illness Reason for Consult Consult date: 12/11/24 Chief Complaint Chief complaint: Dyspnea History of Present Illness Narrative: Joann is a 64 y/o female with a medical history of HTN, morbid obesity, obesity hypoventilation syndrome, COPD (chronic respiratory failure on 1-4L O2 at home), chronic anemia, Crohn's disease (reports in remission), HFpEF, hx of NSTEMI, PTSD, opioid use disorder (on suboxone through [place] pain [facility]), chronic RLE wound. 12/10 presented with shortness of breath, hypoxia on RA (resolved with bipap), somnolence. Nephrology consulted for VERN. creatinine 1.06 on 11/08, on presentation was 2.67. Has been trending down, 12/11 is 1.59. patient has been receiving IVF. she states she cannot recall much prior to her admission, was short of breath. [facility], otherwise no changes. she reports she is feeling tired, some shortness of breath but reports this is improving. denies chest pain, abdominal pain denies urianry symptoms, states she is voiding comfortably/regularly denies LE swelling Review of Systems Constitutional: Reports fatigue Cardiovascular: Denies chest pain, Denies leg edema, Denies lightheadedness and Reports dyspnea Respiratory: Denies cough and Reports dyspnea Gastrointestinal: Denies abdominal pain, Denies diarrhea, Denies nausea and Denies vomiting Genitourinary: Denies hematuria, Denies difficulty voiding, Denies dysuria and Denies flank pain Musculoskeletal: Reports arthralgias (reports chronic pain) Skin/Breast: Reports rash Endocrine: Reports fatigue PMFSH Past Medical History Medical History COPD (chronic obstructive pulmonary disease) Chronic hypoxic respiratory failure Hypoventilation associated with obesity Pickwickian syndrome DM type 2 (diabetes mellitus, type 2) Shortness of breath Influenza A Sepsis Acute on chronic heart failure with preserved ejection fraction (HFpEF) Acute exacerbation of chronic obstructive pulmonary disease BMI 50.0-59.9, adult VERN (acute kidney injury) Enterococcus faecalis infection MSSA (methicillin susceptible Staphylococcus aureus) MRSA (methicillin resistant staph aureus) culture positive Encounter for management of wound VAC Chronic osteomyelitis Hypertension Iron deficiency anemia COPD (chronic obstructive pulmonary disease) Femur fracture Crohn's colitis Morbid obesity due to excess calories Closed tibia fracture Acute on chronic respiratory failure with hypoxia and hypercapnia Nonrheumatic mitral (valve) stenosis Paroxysmal atrial fibrillation Dyspnea Chronic hypercapnic respiratory failure Opioid use disorder Family History Family History Other Adopted Surgical History Surgical History Status post incision and drainage Hx of cholecystectomy History of open reduction and internal fixation (ORIF) procedure Status post open reduction and internal fixation (ORIF) of fracture Recent surgical procedure on lower extremity Social History Social History Household Members: Spouse and Children Household Members Other:: , Hoa. Daughter Carolyn, 21. Daughter's Boyfriend, 22. Neice, 21 Housing: House Do you presently have visiting nurse or other home services: Yes Alcohol intake: never Comment: COUNTS CORRECT Patient Tobacco Use Status: Former Tobacco user Years Smoked: 25 e-Cigarette/Vaping Use: Never Used Second Hand Smoke Exposure: No Advance Directives Date on File: 12/16/20 service: No Current occupational status: disabled Cognitive needs: No Hearing needs: No Vision needs: Yes Travel History Ebola Risk: Travel/Contact With Anyone From Affected Area/s: No Has Patient Experienced Ebola Symptoms: No Meds Allergies Allergy/AdvReac Type Severity Reaction Status Date / Time gabapentin Allergy Mild Anxiety Verified 12/10/24 02:00 morphine [MORPHINE] Allergy Unknown ANAPHALAXIS, Verified 12/10/24 02:00 anaphylaxis propofol [From Diprivan] Allergy Anaphylaxis Verified 12/10/24 02:00 Active Medications: Current Medications Acetaminophen (Acetaminophen 325 Mg Tablet) 650 mg PO Q6H PRN PRN Reason: Pain, Mild 1-3,fever,headache Albuterol/Ipratropium (Albuterol/Iprat 2.5/0.5mg 3 Ml Ampul.Neb) 3 ml INHALE Q4H PRN PRN Reason: Shortness of Breath/Wheezing Last Admin: 12/11/24 10:00 Dose: 3 ml Atorvastatin Calcium (Atorvastatin Calcium 80 Mg Tablet) 80 mg PO DAILY [facility] Buprenorphine HCl (Buprenorphine Hcl 2 Mg Tab.Subl) 4 mg SUBLINGUAL DAILY PRN PRN Reason: Pain (Scale Score 7-10) Buprenorphine HCl (Buprenorphine Hcl 2 Mg Tab.Subl) 2 mg SUBLINGUAL BID [facility] Last Admin: 12/11/24 09:24 Dose: Not Given Calcium Carbonate (Calcium Carbonate 750 Mg Tab.Chew) 750 mg PO Q4H PRN PRN Reason: Heartburn Ceftriaxone Sodium (Ceftriaxone Sodium 1 Gm Vial) 1 gm IVPUSH Q24H [facility] Last Admin: 12/11/24 01:27 Dose: 1 gm Clonazepam (Clonazepam 0.5 Mg Tablet) 0.5 mg PO BID PRN PRN Reason: Anxiety Clonazepam (Clonazepam 1 Mg Tablet) 1 mg PO DAILY [facility] Diltiazem HCl (Diltiazem Hcl Cd 240 Mg Cap.Er.Deg) 240 mg PO DAILY [facility]; Protocol Last Admin: 12/11/24 09:25 Dose: 240 mg Ferrous Sulfate (Ferrous Sulfate 324 Mg Tablet.Dr) 324 mg PO DAILY [facility] Last Admin: 12/11/24 09:25 Dose: 324 mg Fluticasone/Umeclidinium/Vilanterol (Fluticasone/Umeclidinium/Vilanterol 100/62.5/25 Blst.W.Dev) 1 puff INHALE RDAILY [facility] Last Admin: 12/11/24 11:20 Dose: Not Given Furosemide (Furosemide 40 Mg Tablet) 80 mg PO DAILY [facility]; Protocol Last Admin: 12/11/24 10:53 Dose: 80 mg Heparin Sodium (Porcine) (Heparin Sodium,Porcine 5,000 Unit/Ml Vial) 5,000 unit SUBCUT Q12H [facility] Last Admin: 12/11/24 06:11 Dose: 5,000 unit Azithromycin 500 mg/ Sodium (Chloride) 250 mls @ 125 mls/hr IV Q24H [facility] Last Infusion: 12/11/24 03:36 Dose: Infused Magnesium Hydroxide (Milk Of Magnesia 30 Ml Oral.Susp) 30 ml PO DAILY PRN PRN Reason: Constipation Melatonin (Melatonin 3 Mg Tablet) 6 mg PO BEDTIME PRN PRN Reason: Insomnia Methylprednisolone Sodium Succinate (Methylprednisolone Sod Succ 125 Mg Vial) 60 mg IVPUSH Q12H [facility] Last Admin: 12/11/24 01:27 Dose: 60 mg Nystatin (Nystatin Powder 15 Gm Bottle) 1 appl TOPICAL TID [facility]; Protocol Last Admin: 12/11/24 09:31 Dose: Not Given Omeprazole (Omeprazole 20 Mg Capsule.) 20 mg PO DAILY@0630 [facility] Last Admin: 12/11/24 06:10 Dose: 20 mg Ondansetron HCl (Ondansetron Hcl 4 Mg/2 Ml Vial) 4 mg IVPUSH Q8H PRN PRN Reason: Nausea and Vomiting Oxycodone HCl (Oxycodone Hcl Immed Release 15 Mg Tablet) 15 mg PO 5XD PRN PRN Reason: Pain (Scale Score 4-6) Senna (Sennosides 8.6 Mg Tablet) 17.2 mg PO BEDTIME [facility] Last Admin: 12/10/24 20:39 Dose: Not Given Sodium Chloride (0.9 % Sodium Chloride Flush 3 Ml Syringe) 3 ml IVFLUSH QSHIFT [facility] Last Admin: 12/11/24 09:50 Dose: 3 ml Temazepam (Temazepam 15 Mg Capsule) 30 mg PO BEDTIME PRN PRN Reason: Insomnia Last Admin: 12/10/24 21:08 Dose: 30 mg Theophylline (Theophylline Anhydrous Er 400 Mg Tab.Er.24h) 400 mg PO DAILY [facility] Last Admin: 12/11/24 10:54 Dose: 400 mg Home Medications ?Medication ?Instructions ?Recorded ?Confirmed ?Last Taken ?Type fluticasone fur. 100 mcg-umeclid 1 ea inhalation DAILY 04/24/24 12/10/24 12/09/24 History 62.5 mcg-vilant 25 mcg inhalat.powder (Trelegy Ellipta) cholecalciferol (vitamin D3) 50 50 mcg PO DAILY 05/21/24 12/10/24 12/09/24 History mcg (2,000 unit) tablet clonazepam 0.5 mg tablet 0.5 mg PO BID PRN Anxiety 05/21/24 12/10/24 10/07/24 History temazepam 30 mg capsule 30 mg PO BEDTIME PRN Sleep 05/21/24 12/10/24 10/07/24 History acetaminophen 500 mg tablet 1,000 mg PO TID PRN Pain 09/28/24 12/10/24 10/07/24 History clonazepam 1 mg tablet 1 mg PO DAILY Anxiety 09/28/24 12/10/24 12/09/24 History buprenorphine HCl 2 mg sublingual 4 mg sublingual DAILY PRN Pain 11/06/24 12/10/24 Unknown History tablet (Scale Score 7-10) oxycodone 5 mg tablet 15 mg PO 5XD PRN Pain (Scale Score 11/06/24 12/10/24 Unknown History 4-6) buprenorphine HCl 2 mg sublingual 2 mg sublingual BID 12/10/24 12/10/24 12/09/24 History tablet lisinopril 10 mg tablet 30 mg PO BID 12/10/24 12/10/24 12/09/24 History omeprazole 20 mg capsule,delayed 20 mg PO DAILY@0630 12/10/24 12/10/24 12/09/24 History release Physical Exam Vital Signs: Last Vital Signs Temp 97.2 F 12/11/24 11:39 Pulse 66 12/11/24 11:39 Resp 20 12/11/24 11:39 BP 116/56 L 12/11/24 11:39 Pulse Ox 94 12/11/24 11:39 O2 Del Method BiPAP 12/11/24 11:39 O2 Flow Rate 6 12/11/24 11:39 BMI result Body Mass Index 55.4 Const General: no acute distress, alert and awake Resp Effort & Inspection: able to speak in complete sentences Auscultation: clear to auscultation bilaterally Cardio Rate: regular rate Rhythm: regular rhythm Heart sounds: S1 normal heart sound present and S2 normal heart sound present GI Palpation (GI): Soft to palpation and nontender General: Yes no CVA tenderness Back/Spine/Pelvis Back: no CVA tenderness Skin Rashes: no rashes Extrem Right upper extremity: no edema Results Lab Results 12/10/24 02:15 12/11/24 06:50 Lab results: Chemistry 12/10/24 12/10/24 12/11/24 02:15 10:37 06:50 Sodium 145 144 142 Potassium 4.0 4.9 D 5.0 Carbon Dioxide 38 H 32 H 36 H BUN 53 H 52 H 55 H Creatinine 2.67 H 2.17 H 1.59 H Calcium 8.9 8.3 L D 8.8 D Hematology 12/10/24 02:15 WBC 10.4 Hgb 9.2 L Plt Count 241 D Urinalysis 12/10/24 13:50 Urine Color Yellow Urine Appearance Clear Urine pH 5.0 Ur Specific [place] 1.015 Urine Protein Negative Urine Glucose (UA) Negative Urine Ketones Negative Urine Blood Negative Urine Nitrite Negative Ur Leukocyte Esterase Negative Assessment and Plan (1) VERN (acute kidney injury): Status: Acute Plan VERN secondary to tubular injury from dehydration improving with fluids encourage oral hydration recommend avoiding nephrotoxins daily electrolyte and renal function studies monitor blood pressures and I&O continue supportive care Discussed with Dr Keenan Procedures Date of Service Date of Service: 12/11/24
[2024-12-11] MEDS: 0.9 % Sodium Chloride Flush 3 ML SYRINGE IVFLUSH ×3 (09:50→20:12)
[2024-12-11] MEDS: Albuterol/Iprat 2.5/0.5MG 3 ML AMPUL.NEB INHALE (10:00)
[2024-12-11] MEDS: Furosemide 40 MG TABLET 80 MG PO (10:53)
[2024-12-11] MEDS: Theophylline Anhydrous ER 400 MG TAB.ER.24H PO (10:54)
--- NOTE | 2024-12-11 15:02 | P.PNIM_ITS ---
Subjective Subjective Date of Service: 12/11/24 Interval History: f/u on shortness of breath d/t chf, copd exacerbation Physical Exam 2 Vital Signs: Vital Signs: Last Vital Signs Temp 97.2 F 12/11/24 11:39 Pulse 66 12/11/24 11:39 Resp 20 12/11/24 11:39 BP 116/56 L 12/11/24 11:39 Pulse Ox 94 12/11/24 11:39 O2 Del Method BiPAP 12/11/24 11:39 O2 Flow Rate 6 12/11/24 11:39 BMI result Body Mass Index 55.4 Const: Other: Gen: NAD HEENT: sclera anicteric, moist mucus membranes Neck: supple Lungs: diminished Heart: regular rate and rhythm, no murmurs Abd: soft, non-tender, non-distended, obese Ext: bilateral leg edema Skin: warm/well-perfused, swollen, chronic venous stasis changes Neuro: alert and oriented x3, no focal findings Psych: appropriate affect Objective Data Active Medications Acetaminophen (Acetaminophen 325 Mg Tablet) 650 mg PO Q6H PRN PRN Reason: Pain, Mild 1-3,fever,headache Albuterol/Ipratropium (Albuterol/Iprat 2.5/0.5mg 3 Ml Ampul.Neb) 3 ml INHALE Q4H PRN PRN Reason: Shortness of Breath/Wheezing Last Admin: 12/11/24 10:00 Dose: 3 ml Documented By: JEAN-PAUL Atorvastatin Calcium (Atorvastatin Calcium 80 Mg Tablet) 80 mg PO DAILY [facility] Buprenorphine HCl (Buprenorphine Hcl 2 Mg Tab.Subl) 4 mg SUBLINGUAL DAILY PRN PRN Reason: Pain (Scale Score 7-10) Buprenorphine HCl (Buprenorphine Hcl 2 Mg Tab.Subl) 2 mg SUBLINGUAL BID [facility] Last Admin: 12/11/24 09:24 Dose: Not Given Documented By: OSEAS Non-Admin Reason: Patient Refused Calcium Carbonate (Calcium Carbonate 750 Mg Tab.Chew) 750 mg PO Q4H PRN PRN Reason: Heartburn Ceftriaxone Sodium (Ceftriaxone Sodium 1 Gm Vial) 1 gm IVPUSH Q24H [facility] Last Admin: 12/11/24 01:27 Dose: 1 gm Documented By: GEETHA Clonazepam (Clonazepam 0.5 Mg Tablet) 0.5 mg PO BID PRN PRN Reason: Anxiety Clonazepam (Clonazepam 1 Mg Tablet) 1 mg PO DAILY [facility] Diltiazem HCl (Diltiazem Hcl Cd 240 Mg Cap.Er.Deg) 240 mg PO DAILY [facility]; Protocol Last Admin: 12/11/24 09:25 Dose: 240 mg Documented By: OSEAS Ferrous Sulfate (Ferrous Sulfate 324 Mg Tablet.) 324 mg PO DAILY [facility] Last Admin: 12/11/24 09:25 Dose: 324 mg Documented By: OSEAS Fluticasone/Umeclidinium/Vilanterol (Fluticasone/Umeclidinium/Vilanterol 100/62.5 Blst.W.Dev) 1 puff INHALE RDAILY [facility] Last Admin: 12/11/24 11:20 Dose: Not Given Documented By: JEAN-PAUL Non-Admin Reason: pharmacy called for med Furosemide (Furosemide 40 Mg Tablet) 80 mg PO DAILY [facility]; Protocol Last Admin: 12/11/24 10:53 Dose: 80 mg Documented By: OSEAS Heparin Sodium (Porcine) (Heparin Sodium,Porcine 5,000 Unit/Ml Vial) 5,000 unit SUBCUT Q12H [facility] Last Admin: 12/11/24 06:11 Dose: 5,000 unit Documented By: GEETHA Azithromycin 500 mg/ Sodium (Chloride) 250 mls @ 125 mls/hr IV Q24H [facility] Last Infusion: 12/11/24 03:36 Dose: Infused Documented By: GEETHA Magnesium Hydroxide (Milk Of Magnesia 30 Ml Oral.Susp) 30 ml PO DAILY PRN PRN Reason: Constipation Melatonin (Melatonin 3 Mg Tablet) 6 mg PO BEDTIME PRN PRN Reason: Insomnia Methylprednisolone Sodium Succinate (Methylprednisolone Sod Succ 125 Mg Vial) 60 mg IVPUSH Q12H [facility] Last Admin: 12/11/24 14:06 Dose: 60 mg Documented By: OSEAS Nystatin (Nystatin Powder 15 Gm Bottle) 1 appl TOPICAL TID [facility]; Protocol Last Admin: 12/11/24 14:09 Dose: Not Given Documented By: OSEAS Non-Admin Reason: Patient Refused Omeprazole (Omeprazole 20 Mg Capsule.) 20 mg PO DAILY@0630 [facility] Last Admin: 12/11/24 06:10 Dose: 20 mg Documented By: GEETHA Ondansetron HCl (Ondansetron Hcl 4 Mg/2 Ml Vial) 4 mg IVPUSH Q8H PRN PRN Reason: Nausea and Vomiting Oxycodone HCl (Oxycodone Hcl Immed Release 15 Mg Tablet) 15 mg PO 5XD PRN PRN Reason: Pain (Scale Score 4-6) Senna (Sennosides 8.6 Mg Tablet) 17.2 mg PO BEDTIME [facility] Last Admin: 12/10/24 20:39 Dose: Not Given Documented By: GEETHA Non-Admin Reason: Patient Refused Sodium Chloride (0.9 % Sodium Chloride Flush 3 Ml Syringe) 3 ml IVFLUSH QSHIFT [facility] Last Admin: 12/11/24 14:10 Dose: 3 ml Documented By: OSEAS Temazepam (Temazepam 15 Mg Capsule) 30 mg PO BEDTIME PRN PRN Reason: Insomnia Last Admin: 12/10/24 21:08 Dose: 30 mg Documented By: GEETHA Theophylline (Theophylline Anhydrous Er 400 Mg Tab.Er.24h) 400 mg PO DAILY [facility] Last Admin: 12/11/24 10:54 Dose: 400 mg Documented By: OSEAS Labs 12/10/24 02:15 12/11/24 06:50 Labs: Laboratory Results - last 24 hr 12/11/24 06:50 Anion Gap 16 Estim Creat Clear Calc 46.8 Estimated GFR 33 Random Glucose 186 H Calcium 8.8 D B-Natriuretic Peptide 502 H Microbiology Microbiology Results: Microbiology 12/10/24 02:37 Blood Culture - Preliminary Blood - Venous Prelim: GPR Gram Stain only 12/10/24 02:37 Blood Culture - Preliminary Blood - Venous No growth after 24 hours. Assessment and Plan (1) COPD exacerbation: Status: Acute (2) Hypoxic respiratory failure: Status: Acute Plan Pt is a 64 yo female with relative PMH COPD, on BIpap at home, PNA, pulmonary HTN, Pickwickian syndrome, CKD stage 3, PAFIB not on AC present to ED with report fo SOB and panic attack. Pt was immediately started on BIPAP and hypoxia resolved. Pt remains somnolent likely from CO2 retention. Pt being admitted for acute hypoxix and hypercarbic respiratory failure with known COPD, VERN with CKD and fungal rash. Acute hypoxic hyerpercarbic respiratory failure due to copd exacerbation, required bipap in the ED, overall better continue bipap PRN IV steroid bronchodilators by Neb follow clinically if gets worse then pulmonology consult VERN on ckd, Cr on high side, nephrology consult acute/chronic HFpEF continue Furosemide pAF - continue diltiazem; not on anticoagulation normocytic anemia - probably iron deficiency + chronic inflammation; replete Fe mood disorder - clonazepam Fungal rash -nystatin powder ordered DVT prophylaxis: heparin sc MED REC pending FULL CODE confirmed via pt's chart Quality Stroke Does the patient have a stroke diagnosis?: No Reason for No Anti-thrombotic by Day Two: N/A - Med Ordered VTE Prior VTE?: No VTE Risk Level:: Medical - moderate - high VTE Device Contraindication: Treatment Not Tolerated VTE Drug Contraindication: N/A - Med Ordered
--- NOTE | 2024-12-11 15:26 | MHC.CM.PN ---
Second IMM given 12/11. Pt lives at home with her /HCP, has a [employer] 19 hours/week, active with [facility]. Has the following DME: scooter, walker, commode, shower chair, hospital bed, home oxygen and non-invasive vent through [employer]. Pt will need BLS transport home. PCP: Dr. Sandra Diego
[2024-12-11] MEDS: oxyCODONE HCl Immed Release 5 MG TABLET PO (18:10)
[2024-12-11] MEDS: clonazePAM 0.5 MG TABLET PO (18:10)
[2024-12-11] MEDS: Buprenorphine HCL 2 MG TAB.SUBL SUBLINGUAL (20:11)
[2024-12-12] VITALS: BP 157/72; PULSE 67; RESP 17; TEMP 36.4; O2SAT 98
[2024-12-12] MEDS: Temazepam 15 MG CAPSULE 30 MG PO (00:36)
[2024-12-12] MEDS: cefTRIAXone sodium 1 GM VIAL IVPUSH (03:17)
[2024-12-12 03:25] VITALS: BP 138/61; PULSE 62; RESP 17; TEMP 36.8; O2SAT 95
[2024-12-12] MEDS: Azithromycin 500 MG in 0.9 % Sodium Chloride 250 ML 125 MG IV (03:26)
[2024-12-12 06:00] VITALS: BMI 54.4
[2024-12-12] MEDS: Omeprazole 20 MG CAPSULE.DR PO (06:03)
[2024-12-12] MEDS: Heparin Sodium,Porcine 5,000 UNIT/ML VIAL 5000 UNIT SUBCUT (06:03)
[2024-12-12 08:00] VITALS: BP 165/73; PULSE 60; RESP 20; TEMP 36.1; O2SAT 96
[2024-12-12] MEDS: Fluticasone/Umeclidinium/Vilanterol 100/62.5/25 BLST.W.DEV 1 PUFF INHALE (08:20)
[2024-12-12 08:23] VITALS: PULSE 60; RESP 20; O2SAT 96
[2024-12-12] MEDS: clonazePAM 1 MG TABLET PO (08:37)
[2024-12-12] MEDS: dilTIAZem HCL CD 240 MG CAP.ER.DEG PO (08:38)
[2024-12-12] MEDS: Furosemide 40 MG TABLET 80 MG PO (08:38)
[2024-12-12] MEDS: Theophylline Anhydrous ER 400 MG TAB.ER.24H PO (08:38)
[2024-12-12] MEDS: Ferrous Sulfate 324 MG TABLET.DR PO (08:38)
[2024-12-12] MEDS: Atorvastatin Calcium 80 MG TABLET PO (08:38)
[2024-12-12] MEDS: 0.9 % Sodium Chloride Flush 3 ML SYRINGE IVFLUSH ×2 (08:42→15:16)
[2024-12-12 08:50] LABS: Anion Gap 12 (12-20); Blood Urea Nitrogen 56 mg/dL (9-16); Calcium 8.8 mg/dL (8.4-10.2); Carbon Dioxide 40 mmol/L (22-29); Chloride 96 mmol/L (96-108); Creatinine Clr Calc Pharmacy 55.3; Estimated Glomerular Filt Rate 40; Glucose Random 223 mg/dL (60-115); Potassium 5.5 mmol/L (3.3-5.1); Sodium 142 mmol/L (135-145)
[2024-12-12] MEDS: Buprenorphine HCL 2 MG TAB.SUBL SUBLINGUAL (08:56)
--- NOTE | 2024-12-12 10:00 | P.PNNP_ITS ---
Subjective Subjective Date of Service: 12/12/24 Interval history: following for VERN 12/10 presented with shortness of breath, hypoxia on RA (resolved with bipap), somnolence. creatinine 1.06 on 11/08, on presentation was 2.67. Has been trending down, 12/11 is 1.59. today 12/12 is 1.33. she reports she is feeling tired, some shortness of breath but reports this is improving. denies chest pain, abdominal pain denies urianry symptoms, states she is voiding comfortably/regularly denies LE swelling Physical Exam 2 Vital Signs: Vital Signs: Last Vital Signs Temp 97.8 F 12/12/24 11:58 Pulse 86 12/12/24 11:58 Resp 20 12/12/24 11:58 BP 127/60 12/12/24 11:58 Pulse Ox 94 12/12/24 11:58 O2 Del Method Oxymask 12/12/24 11:58 O2 Flow Rate 3 12/12/24 11:58 BMI result Body Mass Index 54.4 Const: General: no acute distress, alert and awake Resp: Effort & Inspection: able to speak in complete sentences A uscultation: clear to auscultation bilaterally Cardio: Rate: regular rate Rhythm: regular rhythm Heart sounds: S1 normal heart sound present and S2 normal heart sound present GI: Palpation (GI): Soft to palpation and nontender : General: Yes no CVA tenderness Back/Spine/Pelvis: Back: no CVA tenderness Skin: Rashes: no rashes Extrem: General: Yes edema (trace) Objective Data Labs 12/10/24 02:15 12/12/24 08:10 Labs: Laboratory Results - last 24 hr 12/12/24 08:10 Sodium 142 Potassium 5.5 H Chloride 96 Carbon Dioxide 40 H* Anion Gap 12 BUN 56 H Creatinine 1.33 Estim Creat Clear Calc 55.3 Estimated GFR 40 Random Glucose 223 H Calcium 8.8 Microbiology Microbiology Results: Microbiology 12/10/24 02:37 Blood - Venous Blood Culture - Final Corynebacterium species 12/10/24 02:37 Blood - Venous Blood Culture - Preliminary No growth after 48 hours. Procedures Date of Service Date of Service: 12/12/24 Assessment & Plan Assessment and plan (1) VERN (acute kidney injury): Status: Acute Plan VERN secondary to tubular injury from dehydration improving with fluids encourage oral hydration recommend avoiding nephrotoxins daily electrolyte and renal function studies monitor blood pressures and I&O will arrange for outpatient follow up in office. Will sign off. Discussed with Dr Keenan. Time Spent With Patient Time: Total time managing care of this patient today ____ minutes. Progress Note: Quality Stroke Does the patient have a stroke diagnosis?: No Reason for No Anti-thrombotic by Day Two: N/A - Med Ordered
[2024-12-12 11:58] VITALS: BP 127/60; PULSE 86; RESP 20; TEMP 36.6; O2SAT 94
--- NOTE | 2024-12-12 13:14 | PM.DS ---
DS: Providers Provider Date of Service: 12/12/24 Date of admission: 12/10/24 04:11 Date of discharge: 12/12/24 Primary care physician: Sandra Diego MD Consults: 12/10/24 05:01 Consult to Nephrology Routine Consulting Provider: [facility] Reason for consultation: vern Consult to Pulmonology Routine Consulting Provider: [facility] Reason for consultation: COPD exacerbation, presentation somnolent, CO2 retention elevated Has provider been notified: No DS: Diagnosis Discharge Diagnosis (1) VERN (acute kidney injury): Status: Acute DS: Summary Hospital Course Hospital Course: admission hpi Chief Complaint: Dyspnea Pt is a 64 yo female with relative PMH COPD, on BIpap at home, PNA, pulmonary HTN, Pickwickian syndrome, CKD stage 3, PAFIB not on AC, presents to ED with complaint of SOB at rest and possible panic attack. Patient is seen in the emergency department and was somnolent on BiPAP. Patient does use BiPAP at home. Nursing at the bedside was able to provide some history. Patient often comes in with similar complaints but is often more alert and communicative. VBG pH 7.39, pCO2 75, PO2 51, bicarb 46. CO2 on BMP 38. UA with reflex requested. Blood cultures times 2 were drawn. EKG normal sinus rhythm with no ischemic changes, QTC 450.. BNP 54, troponin 12.1. Patient came in with a rectal temp of a 100 degrees and hypoxia of 89 %. Patient has no leukocytosis or bandemia. Lactic acid 1.3. Patient's creatinine 2.67 with a creatinine clearance of 26.4 and a GFR of 18. Fungal rash noted under B breasts and perineal area. Patient being admitted for acute hypoxic respiratory failure, acute hypercarbic respiratory failure, COPD exacerbation Hospital course: Pt is a 64 yo female with relative PMH COPD, on BIpap at home, PNA, pulmonary HTN, Pickwickian syndrome, CKD stage 3, PAFIB not on AC present to ED with report fo SOB and panic attack. Pt was immediately started on BIPAP and hypoxia resolved. Pt remains somnolent likely from CO2 retention. Pt being admitted for acute hypoxix and hypercarbic respiratory failure with known COPD, VERN with CKD and fungal rash. Acute hypoxic hyerpercarbic respiratory failure due to copd exacerbation, required bipap in the ED, overall better. Upon admission treated with IV steroid, bronchodilators by Neb, and empiric Abx with Ceftriaxone and Azithromycin, no PNA noted on CXR. She has clinically improved. VERN on ckd, and likely cardiorenal syndrome, Creatine has improved despite use of Lasix and is back to baseline acute/chronic HFpEF continue Furosemide pAF- continue diltiazem; not on anticoagulation normocytic anemia - probably iron deficiency + chronic inflammation; replete Fe mood disorder - clonazepam chronic metabolic alkalosis, compensatory for chronic respiratory acidosis 1/2 cornyebacterium in blood, likely contamination Fungal rash -nystatin powder ordered Time Attestation Discharge Coordination Time (in mins): 40 Quality: Safe Use of Opioids Does Pt have an Active Cancer Diagnosis on the Problem List?: No Quality: Stroke Does the patient have a stroke diagnosis?: No Physical Exam Vital Signs: Vital Signs: Last Vital Signs Temp 97.8 F 12/12/24 11:58 Pulse 86 12/12/24 11:58 Resp 20 12/12/24 11:58 BP 127/60 12/12/24 11:58 Pulse Ox 94 12/12/24 11:58 O2 Del Method Oxymask 12/12/24 11:58 O2 Flow Rate 3 12/12/24 11:58 BMI result Body Mass Index 54.4 Const: Other: Gen: NAD HEENT: sclera anicteric, moist mucus membranes Neck: supple Lungs: diminished Heart: regular rate and rhythm, no murmurs Abd: soft, non-tender, non-distended, obese Ext: bilateral leg edema Skin: warm/well-perfused, swollen, chronic venous stasis changes Neuro: alert and oriented x3, no focal findings Psych: appropriate affect DS: Data Data Completed and Pending Completed studies during hospitalization [Text1]: Procedures Assistance with Respiratory Ventilation, Less than 24 Consecutive Hours, Continuous Positive Airway Pressure (11/06/24) Drainage of Right Upper Arm Subcutaneous Tissue and Fascia, Open Approach (09/28/24) Insertion of Infusion Device into Left Cephalic Vein, Percutaneous Approach (02/19/22) Labs on day of discharge: Laboratory Results - last 24 hr 12/12/24 08:10 Sodium 142 Potassium 5.5 H Chloride 96 Carbon Dioxide 40 H* Anion Gap 12 BUN 56 H Creatinine 1.33 Estim Creat Clear Calc 55.3 Estimated GFR 40 Random Glucose 223 H Calcium 8.8 Preliminary micro results at discharge 12/10/24 02:37 Blood Culture - Preliminary Blood - Venous No growth after 48 hours. Discharge Plan Discharge Anticipated Discharge Date/Time: 12/12/24 13:14 Patient Disposition: Home, Self-Care Discharge Diagnosis: Acute on chronic respiratory failure due to copd exacerbation, hypoxia Referrals: Sandra Diego MD [Primary Care Provider] - 1 Week Discharge Medications: New prednisone 20 mg tablet 40 mg PO DAILY Qty: 6 0RF cefuroxime axetil 500 mg tablet 500 mg PO BID 2 Days Qty: 4 0RF Continued Roque-24 400 mg capsule,extended release 24hr 400 mg PO DAILY Qty: 30 0RF atorvastatin 80 mg tablet 80 mg PO DAILY Qty: 90 0RF diltiazem HCl [Tiadylt ER] 240 mg capsule,extended release 24hr 240 mg PO DAILY Qty: 90 0RF clonazepam 0.5 mg Tablet 0.5 mg PO BID PRN (Reason: Anxiety) temazepam 30 mg Capsule 30 mg PO BEDTIME PRN (Reason: Sleep) cholecalciferol (vitamin D3) 50 mcg (2,000 unit) Tablet 50 mcg PO DAILY clonazepam 1 mg Tablet 1 mg PO DAILY acetaminophen 500 mg Tablet 1,000 mg PO TID PRN (Reason: Pain) oxycodone 5 mg Tablet 15 mg PO 5XD PRN (Reason: Pain (Scale Score 4-6)) buprenorphine HCl 2 mg Tablet, Sublingual 4 mg SUBLINGUAL DAILY PRN (Reason: Pain (Scale Score 7-10)) furosemide [Lasix] 80 mg tablet 80 mg PO DAILY Qty: 30 0RF Trelegy Ellipta 100-62.5-25 mcg blister with device 1 ea INHALATION DAILY ferrous sulfate 324 mg (65 mg iron) Tablet,Delayed Release (Dr/Ec) 324 mg PO DAILY Qty: 30 0RF omeprazole 20 mg capsule,delayed release(DR/EC) 20 mg PO DAILY@0630 buprenorphine HCl 2 mg Tablet, Sublingual 2 mg SUBLINGUAL BID lisinopril 10 mg tablet 30 mg PO BID Discharge Orders: Discharge Order (Routine); Ordered 12/12/24 Ordered By: Christian Booth Diet: Advance to usual diet Activity on Discharge: As tolerated Stand Alone Forms: Patient Portal Discharge page Print Language: Portuguese Care Plan Goals: recovery from copd exacerbation and heart failure, VERN Health Concerns: chronic respiratory failure copd chronic copd chronic heart failure Plan of Treatment: take Prednisone for 3 more days continue your usual medication as before follow up with your doctor in a week Assessment: see above
--- NOTE | 2024-12-12 13:51 | MHC.CM.PN ---
Pt. has been medically cleared for DC, she will go home via family transport, plan is self care.
--- NOTE | 2024-12-12 13:58 | P.F2F_ITS ---
Service Date Service Date: 12/12/24 Encounter Date of encounter: 12/12/24 Encounter: chronically short of breath Reasons for Services Signs and symptoms assessed: shortness of breath with minimal activity and at rest due to heart failure and copd Reason for long term: CV/CP assess and/or care, medication management and teach disease management Homebound: Leaving the home is medically contraindicated at this time without the asist of a device and/or another person due th the listed conditions above and below. Reason homebound: shortness of breath with minimal effort and weakness related to hospital stay Homebound supporting statement: homebound due to advanced heart failure, copd with chronic respiratory failure Certification: Based on the above findings, I certify that this patient is confined to the home and needs intermittent long term care, physical therapy and/or speech therapy, or continues to need occupational therapy. The patient is under my care, and I have initiated the establishment of the plan of care. The patient will be followed by a physician who will periodically review the plan of care. Time Spent With Patient Time: Total time managing care of this patient today ____ minutes.
== END 2024-12-12 17:31 | disposition home or self-care (01) | DRG 190 ==
LOC: HO.ED 04:13 → HO.EDOVER 04:19 → HO.IMC 17:08
PROVIDERS: Nurse Practitioner Family; Physician Assistant Medical; Admitting Provider Student in an Organized Health Care Education/Training Program; Emergency Provider Emergency Medicine; PCP Internal Medicine; Visit Provider Internal Medicine
DX: J44.1 Chronic obstructive pulmonary disease with (acute) exacerbation (principal); I50.33 Acute on chronic diastolic (congestive) heart failure; J96.01 Acute respiratory failure with hypoxia; J96.21 Acute and chronic respiratory failure with hypoxia; J96.22 Acute and chronic respiratory failure with hypercapnia; I13.0 Hypertensive heart and chronic kidney disease with heart failure and stage 1 through stage 4 chronic kidney disease, or unspecified chronic kidney disease; N17.9 Acute kidney failure, unspecified; E66.2 Morbid (severe) obesity with alveolar hypoventilation; Z68.43 Body mass index [BMI] 50.0-59.9, adult; F11.20 Opioid dependence, uncomplicated; I48.0 Paroxysmal atrial fibrillation; E86.0 Dehydration; D50.9 Iron deficiency anemia, unspecified; D63.1 Anemia in chronic kidney disease; F39 Unspecified mood [affective] disorder; G89.29 Other chronic pain; B36.9 Superficial mycosis, unspecified; N18.30 Chronic kidney disease, stage 3 unspecified; I27.20 Pulmonary hypertension, unspecified; Z91.199 Patient's noncompliance with other medical treatment and regimen due to unspecified reason; Z71.3 Dietary counseling and surveillance; Z99.81 Dependence on supplemental oxygen; Z20.822 Contact with and (suspected) exposure to COVID-19; Z79.899 Other long term (current) drug therapy
CPT/HCPCS: 0241U; 36415; 71045; 80048; 80076; 81003; 82803; 83605; 83735; 83880; 84484; 85025; 85610; 87040; 87205; 93005; 99285; J0456; J0571; J0696; J1644; J2919; J3475; P9047

== ENCOUNTER → 2024-12-10 01:59 | Outpatient (BNV) | payer MEDICARE, MEDICAID, SELFPAY | PROVIDERS: Emergency Provider Emergency Medicine; Visit Provider General Practice | DX: R06.02 Shortness of breath (principal) | CPT/HCPCS: 71045 ==

== ENCOUNTER → 2024-12-10 01:59 | Outpatient (BNV) | payer MEDICARE, MEDICAID, SELFPAY | PROVIDERS: Admitting Provider Student in an Organized Health Care Education/Training Program; Emergency Provider Emergency Medicine; Visit Provider Internal Medicine Cardiovascular Disease | DX: R06.02 Shortness of breath (principal) | CPT/HCPCS: 93010 ==

== ENCOUNTER → 2024-12-10 04:11 | Outpatient (BNV) | payer MEDICARE, MEDICAID, SELFPAY | PROVIDERS: Admitting Provider Student in an Organized Health Care Education/Training Program; Emergency Provider Emergency Medicine; Visit Provider Nurse Practitioner Family | DX: N17.9 Acute kidney failure, unspecified (principal) | CPT/HCPCS: 99221; 99231 ==

== ENCOUNTER → 2024-12-10 04:11 | Outpatient (BNV) | payer MEDICARE, MEDICAID, SELFPAY | PROVIDERS: Admitting Provider Student in an Organized Health Care Education/Training Program; Emergency Provider Emergency Medicine; Visit Provider Nurse Practitioner Family | DX: N17.9 Acute kidney failure, unspecified (principal) | CPT/HCPCS: 99223; 99232; 99239; 99499; G0180 ==

== ENCOUNTER → 2024-12-10 04:11 | Outpatient (BNV) | payer MEDICARE, MEDICAID, SELFPAY | PROVIDERS: Admitting Provider Student in an Organized Health Care Education/Training Program; Emergency Provider Emergency Medicine; Visit Provider Internal Medicine Pulmonary Disease | DX: I27.20 Pulmonary hypertension, unspecified (principal); J44.1 Chronic obstructive pulmonary disease with (acute) exacerbation; J96.11 Chronic respiratory failure with hypoxia; Z91.89 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ed personal risk factors, not elsewhere classified | CPT/HCPCS: 99223 ==

== ENCOUNTER → 2024-12-13 23:59 | Outpatient (BNV) | payer MEDICARE, MEDICAID, SELFPAY | PROVIDERS: PCP Internal Medicine; Visit Provider Internal Medicine | DX: J44.9 Chronic obstructive pulmonary disease, unspecified (principal); I50.33 Acute on chronic diastolic (congestive) heart failure | CPT/HCPCS: G0180 ==

== ENCOUNTER 2024-12-20 13:34 | Outpatient (REF) | payer MEDICARE, MEDICAID, SELFPAY ==
--- OUTSIDE RECORDS SUMMARY | 2024-12-20 14:28 | XMS_ITS | Data Portability ---
Author Organization [facility] [employer] [facility], Main Office Address [address], [address] [place] [address] Care Team Providers Care Rating Officer Name Role Phone DAY () OTHER [phone] Assessment Encounter Date Assessment Date Assessment LastModified by Organization Details LastModified Time 03/30/2019 03/30/2019 03/28/19 Na 143, K 4.9, BUN 21, Car Rental Agent 0.75-in hospital [email or web address] Not available 03/30/2019 11:50:52 04/03/2019 04/03/2019 03/31/19 WBC 16.2, Hgb 11.3, Hct 37.9, Plt 190, Na 144, K 3.7, BUN 23, Car Rental Agent 0.69, C02 42 [email or web address] Not available [...] By Organization Details Last Modified Time 03/31/2019 [id number] wound care team to evaluate leg wound myoss Not available 03/31/2019 12:48:10 Reason for Referral None Reported. Problems Name Problem SNOMED Code Status Onset Date Resolution Date Notes Provider Name and Address Organization Details Recorded Time Pjdpz-ca-kjs onic respiratory failure 56398250 Active 2018 bipap setting 16/7.9 and 5 liters of oxygen ANDREI HUTCHINSON [address], [address], [place], [address], [facility] [employer] 9 11:54:07 Chronic obstructive pulmonary disease 31284743 Active 2018 NUBIA SHINEKI ANDREI [address], [address], [place], [address], [facility] 9 11:43:00 Smoker 95606469 Active 2018 NUBIA DALTONAMYP [address], [address], [place], [address], [place] - [facility] 9 11:43:06 Bacteremia 2499964 Active 2018 NUBIA DALTON ANDREI [address], [address], [place], [address], [place] - [facility] 9 11:45:37 Crohn's disease 46103365 Active 2018 ANDREI HUTCHINSON [address], [address], [place], [address], [place] - [facility] 9 11:46:44 Chronic hepatitis C 633103947 Active 2018 ANDREI HUTCHINSON [address], [address], [place], [address], [facility] 9 11:47:00 Asthma 874604128 Active 2018 ANDREI HUTCHINSON [address], [address], [place], [address], [facility] 9 11:47:20 Chronic pain 42406313 Active 2018 ANDREI HUTCHINSON [address], [address], [place], [address], [facility] 9 11:47:51 Venous stasis 47090745 Active 2018 ANDREI HUTCHINSON [address], [address], [place], [address], [place] - [facility] 9 11:48:13 Anxiety 00020490 Active 2018 ANDREI HUTCHINSON [address], [address], [place], [address], [place] - [facility] 9 11:54:52 Essential hypertension 25045959 Active 2018 ANDREI HUTCHINSON [address], [address], [place], [address], [facility] 9 12:12:54 Insomnia 899393909 Active 2018 ANDREI HUTCHINSON [address], [address], [place], [address], [facility] 9 12:13:59 Problem Notes None recorded. Medical Equipment None Reported. Allergies Allergen ID Allergen Name Allergen Category Reaction Reaction Severity Criticality Documentation Date Start Date Code Code System Note Provider Name and Address Organization Details Recorded Time 20307 morphine medicatio n Not available Not available Not available 03/30/2019 7052 RxNorm ANDREI HUTCHINSON [address], [address], [place], [address], [facility] 9 11:41:19 Medications Not known to [...] 141 mm[Hg] 65 mm[Hg] ANDREI HUTCHINSON [address], [address], [place], [address], [facility] 9 11:39:45 Date Recorded Heart rate Respiratory rate Oxygen saturation Oxygen saturation in Arterial blood by Pulse oximetry Inhaled oxygen flow rate Systolic blood pressure Diastolic blood pressure Provider Name and Address Organization Details Last Updated DateTime 9 74 /min 20 /min 93 % 93 % 3 L/min 115 mm[Hg] 71 mm[Hg] Milli Milton MD [address], [address], [place], [address], [facility] 9 11:57:31 Date Recorded Body temperature Heart rate Respiratory rate Oxygen saturation Oxygen saturation in Arterial blood by Pulse oximetry Inhaled oxygen flow rate Systolic blood pressure Diastolic blood pressure Provider Name and Address Organization Details Last Updated DateTime 9 98.1 [degF] 68 /min 20 /min 96 % 96 % 3 L/min 115 mm[Hg] 59 mm[Hg] ANDREI HUTCHINSON [address], [address], [place], [address] [facility] [facility] 9 12:31:37 Social History Question Answer Notes LastModified by Organizat ion Details LastModified Time Tobacco Smoking Status Current Every Day Smoker Not Available [employer] 05/21/2020 03:13:22 Do You Have An Advance Directive? No [id number] Information not available 05/21/2020 How Much Tobacco Do You Chew? None [id number] Information not available 05/21/2020 Do You Have A Medical Power Of Machine Operators? No [id number] Information not available 05/21/2020 What Was The Date Of Your Most Recent Tobacco Screening? 03/30/2019 [id number] Information not available 05/21/2020 How Much Tobacco Do You Smoke? 1 PPD [id number] Information not available 05/21/2020 On What Date Was Tobacco Cessation Counseling Provided? 03/30/2019 Nicotine Patch On [id number] Information not available 05/21/2020 How Many Years Have You Smoked Tobacco? 20 [id number] Information not available 05/21/2020 Sex: Unknown Functional Status Question Answer Note LastModified by Organizat ion Details LastModified Time What is your level of alcohol consumption? None [id number] Information not available 05/21/2020 Do you or have you ever used smokeless tobacco? Never used smokeless tobacco [id number] Information not available 05/21/2020 Do you or have you ever used e-cigarettes or vape? Never used electronic cigarettes [id number] Information not available 05/21/2020 Mental Status None recorded. Family History Nothing Reported. Medical History No medical history recorded. Gynecological HistoryNo gynecological history recorded. Obstetrics History GPAL:G 0 P 0 0 0 0 Past Encounters Encounter ID Performer Location Encounter Start Date Encounter Closed Date Diagnosis/Indication Diagnosis SNOMED-CT Code Diagnosis ICD10 Code Diagnosis Note [id number] ANDREI HUTCHINSON [address] [address] [place] [address] 03/30/2019 11:27:04 04/18/2019 13:50:48 Vkymv-en-chlpiai respiratory failure 66377072 J96.22 uses bipap 16/7.9 with 5 liters of oxygenpred nisone taper q 3 daystheoph ylline anhydrous er 400 mg qdanoro ellipta 62.5-25 mcg qdbaseline o2 3 litersmoni tor respirator y status Bacteremia 0297487 R78.8 1 ceftriaxon e 2 gms iv qd til 04/17/19wil l add probioticP icc line management follow with id Chronic ob structive pulmonary disease 20236496 J41.8 see above Smoker 13269401 F17.210 nicotine patch 21 mg qdmonitor Chronic pain 60946907 G8 9.29 suboxone 8/2 tidmonitor pain Venous stasis 71277865 I 87.8 2 wounds on left legwill have wound see heremonito r Asthma 375102560 J45.99 8 see above Chronic hepatitis C 1283 16327 B18.2 in historymon itor Crohn's disease 32568972 K50.80 in historymon itor Anxiety 68609708 F41.1 clonazepam 0.5 mg qddiscusse d risk vs benefit of clonazepam with ptmonitor anxiety Essential hypertension 62366303 I10 lisinopril 20 mg qdmonitor b/p and labs Insomnia 764401631 G47.0 9 temazepam 30 mg q hsdiscusse d risk vs benefit of temazepam with pt monitor sleep [id number] Milli Milton MD [address] [address] 03/31/2019 11:56:49 04/18/2019 13:53:53 Chronic obstructive pulmonary disease 14315322 J41.1 s/p recent exacerbati on with acute on chronic respirator y failureAno ro Ellipta 62.5-25 one puff dailyoxyge n at 3lpredniso ne 40 mg dailytheop hylline ER 400 mg dailywill monitor Chronic pain 61702371 G8 9.29 buprenorpi ne-naloxon e 8-2 - one film SL tidwill monitor Anxiety 97170752 F41.1 clonazepam 0.5 mg dailywill monitor Essential hypertension 35393909 I10 lisinopril 20 mg dailywill continue to monitor Smoker 75862000 F17.200 nicoderm 21 patch dailyencou rage smoking cessation Bacteremia 7717719 R78.8 1 IV ceftriaxon e 2 gm daily until 04/16/19wil l monitor Insomnia 634476893 G47.0 9 temazepam 30 mg at hs - will decrease to 15 mg at hswill monitor [id number] ANDREI HUTCHINSON [address] [place] [address] 04/03/2019 12:19:28 04/18/2019 13:52:43 Bacteremia 5351630 R78.81 ceftriaxon e 2 gms iv qd til 04/17/19pro bioticPicc line management follow with id Acute-on-c hronic respiratory failure 78084585 J96.22 uses bipap 16/7.9 with 5 liters of oxygenpred nisone taper q 3 daystheoph ylline anhydrous er 400 mg qdanoro ellipta 62.5-25 mcg qdbaseline o2 3 litersfoll ow up with pulmonolog y Chronic ob structive pulmonary disease 94470953 J41.8 see above Asthma 617483411 J45.99 8 see above Smoker 66073726 F17.210 nicotine patch 21 mg qdfollow up with PCP Chronic pain 37700942 G8 9.29 suboxone 8/2 tidfollow up with PCP Venous stasis 40184043 I 87.8 2 wounds on left legfollow with PCP Chronic hepatitis C 1283 56968 B18.2 in historyfol low up with PCP Crohn's disease 21134073 K50.80 in historyfol low up with PCP Anxiety 74032337 F41.1 clonazepam 0.5 mg qdfollow up with PCP Essential hypertension 42983416 I10 lisinopril 20 mg qdfollow up with PCP Insomnia 126766898 G47.0 9 temazepam 15 mg q hsfollow up with PCP Health Concerns Section Related Observation LastModified by Organization Detai ls LastModified Time None Recorded Concern Status LastModified by Organization Details LastModified Time None Recorded Advance Directives Directive N: Payers Encounter Date Sequence Insurance Name Policy Number Policy Garcia Covered Member ID Garcia Member ID Guarantor Name 03/30/2019 1 [place] [facility] Newborn Sample [id number] 1 Newborn Sample 03/31/2019 1 MED[place] [facility] Sample [id number] 1 Newborn Sample 04/03/2019 1 MED[place]ARE [place] [facility] Sample [id number] 1 Newborn Sample Notes Date Note Type Note Provider Name and Address Organization Details Recorded Time 03/30/2019 text/html A 59 year old female being seen for a initial intake note. Patient presented [facility] with sob and cough. She received [...] and hepatitis c. NUBIA HOFFMAN, ANDREI [address], [address], [place], [address], [facility] [employer] 03/30/2019 19:27:36 03/31/2019 text/html This 59 year old female was admitted to [facility] on 03/29/19 for continued care and rehab after [facility] for acute on chronic respiratory failure. Patient presented to [facility] with sob and cough as well as weakness and confusion. She had recently been injured by oxygen tank falling on left leg before long drive. Leg became swollen and infected. Patient stopped at Urgent Care and then ER on her travels. She received Rx for oral doxycycline. At [facility], she received solu-medrol, IV furosemide and updrafts [...] full code assumed Milli Milton MD [address], [address], [place], [address], [facility] [employer] 03/31/2019 12:49:04 04/03/2019 text/html A 59 year old female being seen for a discharge summary. Patient presented to [facility] with sob and cough. She received [...] failure and hepatitis c. ANDREI HUTCHINSON [address], [address], [place], [address], [facility] [employer] 04/03/2019 14:05:15 OBGyn Episode No OBEpisode recorded.
== END 2024-12-20 13:35 | disposition home or self-care (01) ==
LOC: HO.RESP 13:34
PROVIDERS: PCP Internal Medicine; Visit Provider Nurse Practitioner Family
DX: Z13.89 Encounter for screening for other disorder (principal)

== ENCOUNTER 2025-03-07 14:01 | Outpatient (REF) | payer MEDICARE, MEDICAID, SELFPAY ==
--- NOTE | 2025-03-07 14:03 | PFT_ITS ---
Flows: FEV1: 28 % of predicted at 0.61 L FVC: 47 % of predicted at 1.29 L FEV1/FVC: 47 % Bronchodilator response: Absent Volumes: Total lung capacity: 63 % of predicted at 2.88 L Residual volume: 101 % of predicted at 1.66 L Slow vital capacity: 42 % of predicted at 1.22 L Expiratory reserve volume: 19 % of predicted at 0.13 L Diffusion capacity: Severely decreased, adjusts to being mildly decreased after correction for alveolar ventilation. Impression: Very severe obstructive and restrictive ventilatory defects with no bronchodilator response. Decreased expiratory reserve volume suggests extrathoracic restriction likely secondary to abdominal obesity. Decreased diffusion capacity suggests emphysema. MTDD
--- OUTSIDE RECORDS SUMMARY | 2025-03-07 14:23 | XMS_ITS | Clinical Summary ---
Author Organization [facility] Facility Address [address] [address] Care Team Providers Care Batting Machine Operator Insulation Name Role Phone Unavailable Primary Care Provider [...] 2010 Pneumococcal Vaccine: 50+ Ye ars (1 of 1 - PCV) 2011 Influenza Vaccine (#1) 2025 Hepatitis B Vaccine Aged Out No longe r eligible based on patient's age to complete this topic Insurance [place]
--- OUTSIDE RECORDS SUMMARY | 2025-03-07 14:23 | XMS_ITS | Clinical Summary ---
Author Organization [facility] Address [address] [place] [address] Care Team Providers Care Truck Striker Name Role Phone Evin Fan MD Primary Care Provider [phone] Allergies Active Allergy Reactions Criticality Noted Date [...] 79 01/20/2021 9:33 PM EDT Temperature 36.2 C (97.1 F) 01/20/2021 9:33 PM EDT Respiratory Rate 18 01/20/2021 9:33 PM EDT [...] Zoster (Shingles) Vaccine (1 of 2) 2011 COVID-19 Vaccine ( - 2023-2 5 season) 2024 Influenza Vaccine 02/23/2025 RSV Vaccine 60 years and old er and Patients (1 - 1-dose 75+ series) 01/22/2036 Hepatitis B Vaccines Aged Out No long er eligible based on patient's age to complete this topic Insurance MEDICARE PART A & B [facility] Care Teams Truck Striker Relationship Specialty Start Date End Date Evin Fan MD [address] [place] [address] [place] [address] PCP - General Family Medicine 01/20/21
[2025-03-07 14:49] VITALS: PULSE 59; O2SAT 92
== END 2025-03-07 14:02 | disposition home or self-care (01) ==
LOC: HO.RESP 14:01
PROVIDERS: PCP Internal Medicine; Visit Provider Nurse Practitioner Family
DX: J44.1 Chronic obstructive pulmonary disease with (acute) exacerbation (principal)
CPT/HCPCS: 94010; 94640; 94727; 94729

== ENCOUNTER → 2025-03-07 14:03 | Outpatient (BNV) | payer MEDICARE, MEDICAID, SELFPAY | PROVIDERS: PCP Internal Medicine; Visit Provider Internal Medicine Pulmonary Disease | DX: J44.9 Chronic obstructive pulmonary disease, unspecified (principal) | CPT/HCPCS: 94060; 94727; 94729 ==

== ENCOUNTER 2025-03-09 10:43 | Outpatient (AMB) | payer MEDICARE, MEDICAID, SELFPAY ==
--- OUTSIDE RECORDS SUMMARY | 2025-03-09 10:49 | XMS_ITS | Clinical Summary ---
Author Organization [facility] Facility Address [address] [address] Care Team Providers Care Pack Master Name Role Phone Unavailable Primary Care Provider [...]
--- OUTSIDE RECORDS SUMMARY | 2025-03-09 10:49 | XMS_ITS | Clinical Summary ---
Author Organization [facility] Address [address] [place] [address] Care Team Providers Care Restaurant Line Server Name Role Phone Evin Fan MD Primary Care Provider [phone]- [phone] Allergies Active Allergy Reactions Criticality Noted Date [...] topic Insurance MEDICARE PART A & B [facility] Care Teams Restaurant Line Server Relationship Specialty Start Date End Date Evin Fan MD [address] [place] [address] [place] [id number] PCP - General Family Medicine 01/20/21
[2025-03-09 10:54] VITALS: BP 136/72; PULSE 72; O2SAT 90
--- NOTE | 2025-03-09 10:54 | MHC.OFFVIS ---
Vital Signs 03/09/25 10:54 Height 5 ft 1 in BMI Reason not done Patient refused/unable BP 136/72 Blood Pressure Location Lt brachial Position Sitting Pulse 72 Pulse Source Pulse Oximeter Pulse Oximetry (%) 90 L Oxygen Delivery Method Nasal Cannula Oxygen Flow Rate 3 Intake Visit Reasons: COPD Allergies gabapentin Allergy (Mild, Verified 03/09/25 11:01) Anxiety morphine (MORPHINE) Allergy (Unknown, Verified 03/09/25 11:01) ANAPHALAXIS, anaphylaxis propofol (From Diprivan) Allergy (Verified 03/09/25 11:01) Anaphylaxis HPI HPI COPD: Details: Brianne is a pleasant 65-year-old female, former 70 pack year smoker, quit 5 years ago with underlying COPD on 4-6 L of supplemental oxygen, ALEKSEY/ohs with chronic CO2 retention and suboptimal compliance with BiPAP, CHF, HFpEF + R-sided HF/pulmonary HTN, obesity, and chronic osteomyelitis..? She has had multiple admissions for acute hypoxic/hypercarbic respiratory failure secondary to COPD and CHF, last admitted November 2024. Today she presents to review PFT results and is awaiting in lab PSG, echo and CT. She has been using Trelegy 100 mcg and reports not needing albuterol frequently. The patient also has a history of pulmonary hypertension, with previous imaging showing ground glass opacities and some fluid accumulation. An upcoming echocardiogram is scheduled to assess current pulmonary pressures and CT to assess for resolution of ggo. The patient reports a significant weight loss of 25 pounds over the past month, motivated to continue with diet changes. This weight loss is part of a lifestyle change initiated with her daughter, who is also her personal loan specialist ([employer]WORK ADMINISTRATOR). The patient has been experiencing sleep apnea, for which she uses a non-invasive ventilator at [facility] and has a BiPAP beating machine operator in her living room for use during the day, although not using consistently. Recommendations previously made were use for a total of 16 hours which she has not been achieving. DME is [employer]. The patient reports intermittent BLE edema, which she manages with Lasix, however not using consistently due to increased urination. She is aware of the need to monitor her oxygen levels and has a pulse oximeter at home for this purpose, reports maintaining oxygen saturation >90%. She denies any visits to urgent care or hospitalizations related to respiratory distress since the last visit. [facility] Medical History (Updated 03/12/25 @ 16:07 by Mary Pimentel MD) COPD (chronic obstructive pulmonary disease) Chronic hypoxic respiratory failure Pulmonary hypertension Hypoventilation associated with obesity Pickwickian syndrome DM type 2 (diabetes mellitus, type 2) Shortness of breath Influenza A Sepsis Acute on chronic heart failure with preserved ejection fraction (HFpEF) Acute exacerbation of chronic obstructive pulmonary disease BMI 50.0-59.9, adult VERN (acute kidney injury) Enterococcus faecalis infection MSSA (methicillin susceptible Staphylococcus aureus) MRSA (methicillin resistant staph aureus) culture positive Encounter for management of wound VAC Chronic osteomyelitis Hypertension Iron deficiency anemia COPD (chronic obstructive pulmonary disease) Femur fracture Crohn's colitis Morbid obesity due to excess calories Closed tibia fracture Acute on chronic respiratory failure with hypoxia and hypercapnia Nonrheumatic mitral (valve) stenosis Paroxysmal atrial fibrillation Dyspnea Chronic hypercapnic respiratory failure Opioid use disorder Surgical History Status post incision and drainage Hx of cholecystectomy History of open reduction and internal fixation (ORIF) procedure Status post open reduction and internal fixation (ORIF) of fracture Recent surgical procedure on lower extremity Family History Other Adopted Social History Household Members: Spouse and Children Household Members Other:: , Hoa. Daughter Carolyn, 21. Daughter's Boyfriend, 22. Neice, 21 Housing: House Do you presently have visiting nurse or other home services: Yes Alcohol intake: never Comment: COUNTS CORRECT Patient Tobacco Use Status: Former Tobacco user Years Smoked: 25 e-Cigarette/Vaping Use: Never Used Second Hand Smoke Exposure: No Advance Directives Date on File: 12/16/20 service: No Current occupational status: disabled Cognitive needs: No Hearing needs: No Vision needs: Yes Review of Systems Const Denies chills, Denies excessive sweating, Denies fever(s), Denies headache(s) and Denies night sweats Eyes Denies dry eyes, Denies irritation and Denies itchy eyes ENT Reports Normal hearing present, Denies headache(s), Denies nasal congestion, Denies nasal discharge, Denies post nasal drip and Denies sore throat Card Denies chest pain, Denies chest pain at rest, Denies chest pain with activity, Denies claudication, Reports dyspnea on exertion and Denies paroxysmal nocturnal dyspnea Resp Denies chest congestion, Denies cough, Denies excessive phlegm production, Denies pain on inspiration, Denies pain with cough, Reports dyspnea on exertion, Denies stridor and Denies wheezing Musc Denies myalgias Neuro Reports Normal hearing present and Denies headache(s) Endo Denies excessive sweating Enrique/Lymph Denies lymphadenopathy Aller/Immun Denies itchy eyes, Denies seasonal rhinorrhea and Denies wheezing Physical Exam Vital Signs: Last Vital Signs Pulse 72 03/09/25 10:54 BP 136/72 03/09/25 10:54 Pulse Ox 90 L 03/09/25 10:54 Oxygen Delivery Method Nasal Cannula 03/09/25 10:54 Oxygen Flow Rate 3 03/09/25 10:54 Const General: cooperative, comfortable, no acute distress, well developed and alert Nutritional Appearance: obese Orientation/consciousness: patient oriented x3 Limitations: wheelchair (motorized scooter) HEENT Head: Yes normal to inspection, Yes normocephalic and Yes atraumatic Ears: hearing grossly normal bilaterally and external ears normal Eyes General: appearance normal, both eyes and all related structures Eyelids: Yes eyelids normal Sclerae: sclerae normal EOM: EOMs intact bilaterally Neck Neck: Yes normal visual inspection and Yes no lymphadenopathy Lymphatic: no lymphadenopathy noted Chest Chest palpation & inspection: normal inspection of the chest Resp Effort & Inspection: normal respiratory effort, able to speak in complete sentences, no audible wheezes, no cough, no stridor, not tachypneic, no tripod positioning and no use of accessory muscles Auscultation: diminished lung sounds Cardio Jugular venous distension: no JVD Rate: regular rate Rhythm: regular rhythm Skin Other: warm, dry General skin exam: no rashes or lesions noted Neuro General: patient oriented x3 Cranial nerves: Yes Normal hearing present Cognition (Neuro): normal cognition Gait exam (Neuro): Assisted gait required Extrem Other: 2+pedal edema Psych Appearance: grossly normal and well kempt Speech and movement: Normal speech and movement present and Clear speech present Affect: normal affect Attitude: cooperative Thought process: Normal thought process present Thought content: Normal thought content present Insight: Good insight present (Psych) Judgement: Good judgement present (Psych) Assessment & Plan Assessment & Plan (1) Hypoventilation associated with obesity: Code(s): E66.2 - Morbid (severe) obesity with alveolar hypoventilation Category: Medical Qualifiers: Obesity classification: adult class 3 (BMI >= 40) Serious obesity comorbidity presence: with serious comorbidity Body mass index: BMI 45.0-49.9 Qualified Code(s): E66.2 - Morbid (severe) obesity with alveolar hypoventilation; Z68.42 - Body mass index [BMI] 45.0-49.9, adult (2) Chronic hypoxic respiratory failure: Comment: Secondary to morbid obesity, hypoventilation, COPD, echo 04/2024 nl EF, severe pulmonary hypertension Code(s): J96.11 - Chronic respiratory failure with hypoxia Category: Medical (3) COPD (chronic obstructive pulmonary disease): Code(s): J44.9 - Chronic obstructive pulmonary disease, unspecified Category: Medical Qualifiers: COPD type: COPD with acute exacerbation Qualified Code(s): J44.1 - Chronic obstructive pulmonary disease with (acute) exacerbation (4) Pulmonary hypertension: Code(s): I27.20 - Pulmonary hypertension, unspecified Category: Medical Plan At this time she feels symptoms are relatively controlled on current regimen of Trelegy, theophylline and albuterol MDI, advised to continue. She is currently using 1-2 L of supplemental oxygen with rest and 3-4 L with exertion to maintain an oxygen saturation of 90-92%. Since initiating the noninvasive ventilator she feels her symptoms have significantly improved and is motivated to continue to use, currently using 7-8 hours per night. She also has a BiPAP that she is supposed to use for approximately 4 hours per day however has not used in a few days and does not use consistently. The patient was advised to use her BiPAP machine regularly to manage CO2 levels and was reminded of the importance of seeking emergency care if her symptoms worsen. Awaiting in lab titration study to ensure optimal pressures especially given 25lb weight loss. Reviewed PFT which revealed very severe obstructive and restrictive ventilatory defects with no bronchodilator response. Decreased expiratory reserve volume suggests extrathoracic restriction likely secondary to abdominal obesity. Decreased diffusion capacity suggests emphysema. Repeat echo scheduled as previous echo from September 2024 revealed moderate to severe pulmonary hypertension, currently prescribed 80 mg of Lasix, unfortunately not using consistently. Discussed importance of compliance. May need to consider right heart catheterization. All questions were answered and patient is in agreement of plan. Will follow-up to review results or sooner if needed. Medications: New albuterol sulfate 90 mcg/actuation 2 puffs inhalation Q4-6H PRN 1 ea 3RF shortness of breath or wheezing Coding Level of Care Code Est Pt Level 4 (62003) Complex EM visit Add On G2211 Diagnoses Class 3 obesity with alveolar hypoventilation, serious comorbidity, and body mass index (BMI) of 45.0 to 49.9 in adult E66.2; Z68.42 Obesity classification: adult class 3 (BMI >= 40) Serious obesity comorbidity presence: with serious comorbidity Body mass index: BMI 45.0-49.9 Chronic hypoxic respiratory failure J96.11 COPD (chronic obstructive pulmonary disease) J44.1 COPD type: COPD with acute exacerbation Pulmonary hypertension I27.20
== END 2025-03-09 11:36 | disposition home or self-care (01) ==
LOC: HO.HPSW 10:44
PROVIDERS: PCP Internal Medicine; Visit Provider Nurse Practitioner Family
DX: E66.2 Morbid (severe) obesity with alveolar hypoventilation (principal); Z68.42 Body mass index [BMI] 45.0-49.9, adult; J96.11 Chronic respiratory failure with hypoxia; J44.1 Chronic obstructive pulmonary disease with (acute) exacerbation; I27.20 Pulmonary hypertension, unspecified
CPT/HCPCS: 99214; G2211

== ENCOUNTER → 2025-03-09 10:43 | Outpatient (BNVA) | payer MEDICARE, MEDICAID, SELFPAY | PROVIDERS: PCP Internal Medicine; Visit Provider Nurse Practitioner Family | DX: J44.1 Chronic obstructive pulmonary disease with (acute) exacerbation (principal); I27.20 Pulmonary hypertension, unspecified; J96.11 Chronic respiratory failure with hypoxia; E66.2 Morbid (severe) obesity with alveolar hypoventilation; Z68.42 Body mass index [BMI] 45.0-49.9, adult; Z99.81 Dependence on supplemental oxygen | CPT/HCPCS: 99212 ==

== ENCOUNTER → 2025-04-19 14:44 | Outpatient (REF) | payer MEDICARE, MEDICAID, SELFPAY ==
--- NOTE | 2025-04-19 14:47 | CA_ITS ---
Transthoracic Echocardiogram Patient (Last, First, Middle): Brianne Chaudhary Gender: F Date of : 1960 Age: 65 Procedure Date: 04/19/2025 Procedure Type: Transthoracic Echocardiogram Location: OP Height: 157. cm Weight: 115.67 kg BSA: 2.11 m2 Heart Rate: 56 bpm BP: 178 / 70 mmHg Consulting Senior Practice Director: BRENNEN Referring MD: Crissy Peck CONTROL SYSTEMS DRAFTING OFFICER Deaf/Hard Of Hearing Specialist: Keyur Daivs MD Symptoms: I27.20 - Pulmonary hypertension, unspecified Study Quality: Adequate ECG Rhythm: Sinus Conclusions: - 1. Normal LV ejection fraction 55-60% with elevated filling pressures 2. Moderately dilated left atrium 3. Mild aortic stenosis 4. Mi calcific mitral stenosis 5. Moderately elevated right ventricular systolic pressure with mildly elevated right atrial pressures 6. No pericardial effusion Findings Left Ventricle Normal left ventricular size and systolic function. There is mildly increased left ventricular wall thickness. The visually estimated ejection fraction is between 55-60%. E/E prime ratio is >15, consistent with elevated filling pressures. Evidence suggests grade II (moderate) diastolic dysfunction. Right Ventricle Normal right ventricular cavity size and systolic function. Atria The left atrium is moderately dilated. There is no evidence of interatrial shunt. The right atrium is likely dilated. Aortic Valve The aortic valve was not well visualized. There is mild aortic valve stenosis. The peak aortic gradient is 25 mmHg.The mean gradient is 13 mmHg. The aortic valve area is 1.88 cm2. There is no aortic valve regurgitation. Mitral Valve There is mild anterior and severe posterior mitral leaflet thickening. There is severe mitral annular calcification. There is no mitral valve regurgitation. There is mild mitral valve stenosis. Pulmonic Valve The pulmonic valve is likely normal. There is trace to mild pulmonic valve regurgitation. Tricuspid Valve Likely normal tricuspid valve structure and function. There is mild to moderate tricuspid valve regurgitation. Mildly elevated right atrial pressure. Moderate pulmonary hypertension is present. Great Vessels The pulmonary artery was not well visualized. There is no dilatation of the ascending aorta measuring 3.50 cm. Small plaque is seen in the sino tubular ridge. Venous The inferior vena cava is mildly dilated and collapses less than 50% with inspiration. Pericardium/Pleural There is no evidence of pericardial effusion. Prior Study Comparison Changes noted compared to prior study dated: 09/28/2024. RV systolic pressure and right atrial pressures are marginally reduced Measurements 2D Linear Measurements IVSd: 1.08 0.6-0.9/0.6-1.0 cm LVIDd: 5.69 3.9-5.3/4.2-5.9 cm LVIDd Index: 2.70 2.4-3.2/2.2-3.1 cm/m2 LVIDs: 3.62 2.0-3.6 cm LVPWd: 1.28 0.7-1.1 cm LA Diam: 4.60 2.7-3.8/3.0-4.0 cm LAIDs Index: 2.18 1.5-2.3 cm/m2 LV Mass: 350.94 67-162/88-224 g LV Mass Index: 166.32 43-95/49-115 g/m2 LVOT Diam: 1.90 3.0+(-)1.3 cm 2D Systolic Function EF 4C: 56.70 >55% EF 2C: 56.90 >55% EF BiP: 56.40 >55% Mitral Valve MV VTI: 0.60 MV Pk Shahram: 1.57 MV Mn Shahram: 0.94 MV Pk Grad: 10.00 MV Mn Grad: 4.00 MV Pk E: 1.48 MV PK A: 1.40 MV Decel Time: 365.00 E/A: 1.10 E'Lateral: 5.92 E'Medial: 4.70 E/E' Med: 31.50 E/E' Lat: 25.00 PHT: 107.00 MVA PHT: 2.06 MVA Continuity: 2.05 Decel Mcclain: 4.05 Aortic Valve AoV Pk Shahram: 2.52 AoV Mn Shahram: 1.70 AoV VTI: 0.66 AoV Pk Grad: 25.00 Aov Mn Grad: 13.00 RENATA Cont.VTI: 1.88 LVOT LVOT Pk Shahram: 1.58 LVOT Mn Shahram: 1.08 LVOT VTI: 0.43 LVOT Pk Grad: 10.00 LVOT Mn Grad: 5.00 LVOT Diam: 1.90 LVOT Area: 2.84 Diastolic Function MV Pk E: 1.48 MV Pk A: 1.40 E/A: 1.10 E'Medial: 4.70 E/E' Med: 31.50 E' Laterial: 5.92 E/E' Lat: 25.00 Right Ventricle TAPSE (mm): 25.90 TVS' Shahram: 10.60 Tricuspid Valve TR Pk Shahram: 3.16 TR Pk Grad: 49.00 RA Press: 8.00 RVSP: 57.00 Great Vessels Aorta Sinus of Valsalva: 2.90 2.0-3.5 cm Ao Asc: 3.50 2.1-3.4 cm Ao Arch: 3.10 Pulmonary Veins Pulm Vein S/D 1.50 Pulmonary Valve PV Pk Shahram: 1.69 Peak PV Grad: 11.00 Updated in Other Vendor System with Status of Final Keyur Davis MD electronically signed on 04/19/2025 4:43:21 PM with status of Final
--- OUTSIDE RECORDS SUMMARY | 2025-04-19 19:02 | XMS_ITS | Clinical Summary ---
Author Organization [facility] Address [address] [place] [address] Care Team Providers Care Thermostatic Controls Supervisor Name Role Phone Evin Fan MD Primary Care Provider [phone] Allergies Active Allergy Reactions Criticality Noted Date [...] 60-74 years 1-dose series) 2021 Influenza Vaccine 02/23/2025 COVID-19 Vaccine (1 - 2023-2 5 season) 2025 Hepatitis B Vaccines Aged Out No long er eligible based on patient's age to complete this topic Insurance MEDICARE PART A & B [facility] Care Teams Thermostatic Controls Supervisor Relationship Specialty Start Date End Date Evin Fan MD [address] [place] [address] [place] [id number] PCP - General Family Medicine 01/20/21
--- OUTSIDE RECORDS SUMMARY | 2025-04-19 19:02 | XMS_ITS | Data Portability ---
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 Problems Name Problem SNOMED Code Status Onset Date Resolution Date Notes Provider Name and Address Organization Details Recorded Time Hijzb-fv-qpj onic respiratory failure 13869001 Active 2018 bipap setting 16/7.9 and 5 liters of oxygen ANDREI HUTCHINSON [address], [address], [place], [address], [facility] [employer] 9 11:54:07 Chronic obstructive pulmonary disease 28441380 Active 2018 NUBIA DALTONAMYP [address], [address], [place], [address], [facility] 9 11:43:00 Smoker 54286318 Active 2018 NUBIA MICHAELROSIEAMY GONSALVESP [address], [address], [place], [address], [facility] 9 11:43:06 Bacteremia 0525227 Active 2018 NUBIA DALTONAMYP [address], [address], [place], [address], [facility] 9 11:45:37 Crohn's disease 08769356 Active 2018 NUBIA DALTON ANDREI [address], [address], [place], [address], [facility] 9 11:46:44 Chronic hepatitis C 862347914 Active 2018 NUBIAANDREI BALLARD [address] , [address], [place], [address], [facility] 9 11:47:00 Asthma 078300303 Active 2018 NUBIASA HOFFMAN ANDREI [address], [place], [address], [facility] 9 11:47:20 Chronic pain 40110778 Active 2018 ANDREI HUTCHINSON [address] , [address], [place], [address], [facility] [employer] [facility] 9 11:47:51 Venous stasis 55556175 Active 2018 NUBIA HOFFMAN PROFESSIONAL BASS FISHER [address], [address], [place], [address], [facility] 9 11:48:13 Anxiety 79205815 Active 2018 NUBIA HOFFMAN PROFESSIONAL [employer] [address], [address], [place], [address], [place] [facility] 9 11:54:52 Essential hypertension 23637841 Active 2018 AMY HUTCHINSONP [address], [address], [place], [address], [facility] [employer] [facility] 9 12:12:54 Insomnia 163164347 Active 2018 ANDREI HUTCHINSON [address], [address], [place], [address], [facility] [email or web address] [facility] 9 12:13:59 Problem Notes None recorded. Medical Equipment None Reported. Allergies Allergen ID Allergen Name Allergen Category Reaction Reaction Severity Criticality Documentation Date Start Date Code Code System Note Provider Name and Address Organization Details Recorded Time 32275 morphine medicatio n Not available Not available Not available 03/30/2019 7052 RxNorm ANDREI HUTCHINSON [address], [address], [place], [address], [facility] [employer] 9 11:41:19 Medications Not known to be on any medication Vitals Date Recorded Body temperature Heart rate Respiratory rate Oxygen saturation Oxygen saturation in Arterial blood by Pulse oximetry Inhaled oxygen flow rate Systolic And Diastolic Provider Name and Address Organization Details Last Updated DateTime 9 97.8 [degF] 95 /min 20 /min 96 % 96 % 3 L/min 141/65 mm[Hg] NUBIA HOFFMAN PROFESSIONAL B[employer] FISHER [address], [address], [place], [address], [facility] 9 11:39:45 Date Recorded Heart rate Respiratory rate Oxygen saturation Oxygen saturation in Arterial blood by Pulse oximetry Inhaled oxygen flow rate Systolic And Diastolic Provider Name and Address Organization Details Last Updated DateTime 9 74 /min 20 /min 93 % 93 % 3 L/min 115/71 mm[Hg] Milli Milton MD [address], [address], [place], [address], [place] [email or web address] 9 11:57:31 Date Recorded Body temperature Heart rate Respiratory rate Oxygen saturation Oxygen saturation in Arterial blood by Pulse oximetry Inhaled oxygen flow rate Systolic And Diastolic Provider Name and Address Organization Details Last Updated DateTime 9 98.1 [degF] 68 /min 20 /min 96 % 96 % 3 L/min 115/59 mm[Hg] ANDREI HUTCHINSON [address], [address], [place], [address] [facility] 9 12:31:37 Social History Question Answer Notes LastModified by Organizat ion Details LastModified Time Tobacco Smoking Status Current Every Day Smoker Not Available [employer] 05/21/2020 03:13:22 Do You Have An Advance Directive? No [id number] Information not available 05/21/2020 How Much Tobacco Do You Chew? None [id number] Information not available 05/21/2020 Do You Have A Medical Power Of [employer] Operations Consultant? No [id number] Information not available 05/21/2020 What Was The Date Of Your Most Recent Tobacco Screening? 03/30/2019 [id number] Information not available 05/21/2020 How Much Tobacco Do You Smoke? 1 PPD [id number] Information not available 05/21/2020 On What Date Was Tobacco Cessation Counseling Provided? 03/30/2019 Nicotine Patch On [id number] Information not available 05/21/2020 How Many Years Have You Smoked Tobacco? 20 [id number] Information not available 05/21/2020 Sex: Unknown Functional Status Question Answer Note LastModified by Organizat ion Details LastModified Time What is your level of alcohol consumption? None [id number] Information not available 05/21/2020 Do you or have you ever used smokeless tobacco? Never used smokeless tobacco [id number] Information not available 05/21/2020 Do you or have you ever used e-cigarettes or vape? Never used electronic cigarettes [id number] Information not available 05/21/2020 Mental Status None recorded. Family History Nothing Reported. Medical History No medical history recorded. Gynecological HistoryNo gynecological history recorded. Obstetrics History GPAL:G 0 P 0 0 0 0 Past Encounters Encounter ID Performer Location Encounter Start Date Encounter Closed Date Diagnosis/Indication Diagnosis SNOMED-CT Code Diagnosis ICD10 Code Diagnosis IMO Codes Diagnosis Note [id number] ANDREI HUTCHINSON [address] [place] [address] 03/30/2019 11:27:04 04/18/2019 13:50:48 Hkjhg-an-yymhwlk respiratory failure 64739059 J96.22 uses bipap 16/7.9 with 5 liters of oxygenpred nisone taper q 3 daystheoph ylline anhydrous er 400 mg qdanoro ellipta 62.5-25 mcg qdbaseline o2 3 litersmoni tor respirator y status Bacteremia 2269569 R78.8 1 ceftriaxon e 2 gms iv qd til 04/17/19wil l add probioticP icc line management follow with id Chronic ob structive pulmonary disease 20612379 J41.8 see above Smoker 17312529 F17.210 nicotine patch 21 mg qdmonitor Chronic pain 91489177 G8 9.29 suboxone 8/2 tidmonitor pain Venous stasis 78718845 I 87.8 2 wounds on left legwill have wound see heremonito r Asthma 851470683 J45.99 8 see above Chronic hepatitis C 1283 86643 B18.2 in historymon itor Crohn's disease 70005282 K50.80 in historymon itor Anxiety 01624285 F41.1 clonazepam 0.5 mg qddiscusse d risk vs benefit of clonazepam with ptmonitor anxiety Essential hypertension 19352263 I10 lisinopril 20 mg qdmonitor b/p and labs Insomnia 188604433 G47.0 9 temazepam 30 mg q hsdiscusse d risk vs benefit of temazepam with pt monitor sleep [id number] Milli Milton MD [address] [address] 03/31/2019 11:56:49 04/18/2019 13:53:53 Chronic obstructive pulmonary disease 90912319 J41.1 s/p recent exacerbati on with acute on chronic respirator y failureAno ro Ellipta 62.5-25 one puff dailyoxyge n at 3lpredniso ne 40 mg dailytheop hylline ER 400 mg dailywill monitor Chronic pain 31318104 G8 9.29 buprenorpi ne-naloxon e 8-2 - one film SL tidwill monitor Anxiety 48988721 F41.1 clonazepam 0.5 mg dailywill monitor Essential hypertension 18849180 I10 lisinopril 20 mg dailywill continue to monitor Smoker 78865688 F17.200 nicoderm 21 patch dailyencou rage smoking cessation Bacteremia 4474718 R78.8 1 IV ceftriaxon e 2 gm daily until 04/16/19wil l monitor Insomnia 471575555 G47.0 9 temazepam 30 mg at hs - will decrease to 15 mg at hswill monitor [id number] ANDREI HUTCHINSON [address] [place] [address] 04/03/2019 12:19:28 04/18/2019 13:52:43 Bacteremia 1288685 R78.81 ceftriaxon e 2 gms iv qd til 04/17/19pro bioticPicc line management follow with id Acute-on-c hronic respiratory failure 99265807 J96.22 uses bipap 167.9 with 5 liters of oxygenpred nisone taper q 3 daystheoph ylline anhydrous er 400 mg qdanoro ellipta 62.5-25 mcg qdbaseline o2 3 litersfoll ow up with pulmonolog y Chronic ob structive pulmonary disease 06660643 J41.8 see above Asthma 421221571 J45.99 8 see above Smoker 31185099 F17.210 nicotine patch 21 mg qdfollow up with PCP Chronic pain 53390176 G8 9.29 suboxone 8/2 tidfollow up with PCP Venous stasis 04043224 I 87.8 2 wounds on left legfollow with PCP Chronic hepatitis C 1283 30128 B18.2 in historyfol low up with PCP Crohn's disease 90309001 K50.80 in historyfol low up with PCP Anxiety 75298678 F41.1 clonazepam 0.5 mg qdfollow up with PCP Essential hypertension 34987025 I10 lisinopril 20 mg qdfollow up with PCP Insomnia 377806601 G47.0 9 temazepam 15 mg q hsfollow up with PCP Health Concerns Section Related Observation LastModified by Organization Detai ls LastModified Time None Recorded Concern Status LastModified by Organization Details LastModified Time None Recorded Advance Directives Directive N: Payers Insurance Date Sequence Insurance Name Policy Number Policy Garcia Covered Member ID Garcia Member ID Guarantor Name 04/18/2019 1 [place] [employer] Sample [id number] [employer] Sample 04/18/2019 2 [place] [facility] Sample [id number] Brianne Sample Notes Date Note Type Note Provider Name and Address Organization Details Recorded Time 03/30/2019 text/html A 59 year old female being seen for a initial intake note. Patient presented to [facility] with sob and cough. She received [...] and hepatitis c. NUBIA HOFFMAN, ANDREI [address], [address], [place], [address], [facility] [employer] [facility] 03/30/2019 19:27:36 03/31/2019 text/html ROS as noted in the HPI This 59 year old female was admitted to [facility] on 03/29/19 for continued care and rehab after [facility] for acute on chronic respiratory failure. Patient presented to [facility] with sob and cough as well as weakness and confusion. She had recently been injured by oxygen tank falling on left leg before long drive. Leg became swollen and infected. Patient stopped at Urgent Care and then ER on her travels. She received Rx for oral doxycycline. At [facility], she received solu-medrol, IV furosemide and updrafts [...] full code assumed Milli Milton MD [address], [address], [place], [address], [facility] [employer] 03/31/2019 12:49:04 04/03/2019 text/html A 59 year old female being seen for a discharge summary. Patient presented to [facility] with sob and cough. She received [...] failure and hepatitis c. ANDREI HUTCHINSON [address], [address], [place], [address], [facility] 04/03/2019 14:05:15 OBGyn Episode No OBEpisode recorded.
--- OUTSIDE RECORDS SUMMARY | 2025-04-19 19:02 | XMS_ITS | Data Portability ---
Author Organization [facility] - Ajay Lin [facility], [facility] Address [address] [place] [address] Care Team Providers Care Unit Receptionist Name Role Phone [employer] [facility] Primary Care Pro vider Assessment Encounter Date [...] a nonoperative mind set; recheck as needed [email or web address] Not available 11/24/2023 10:54:02 02/22/2024 02/22/2024 CC [...] outcomes we landed on an approach as fojose j with goal of right lateral thigh wound closure and healing: - surgery for removal of PMMA probaby part, probably not all, wound irrigation/debridement/ closure and placement of incisional vac; ABX wound be continued/current suppressive ABX; intraoperative cultures would be taken - 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 Results Procedure: Wound Vacuum Dressing Change [...] dressing regularly with wound care nurse from [facility]. -Check wound in 6-8 weeks or [...] care clinic for additional input if needed. [email or web address] Not available 04/17/2024 21:48:46 06/01/2024 06/01/2024 History [...] weeks or sooner if any flare-ups occur. [email or web address] Not available 06/07/2024 22:37:13 Plan of Treatment [...] 3-1/2 cm. 2023 024 [email or web address] Not available 4 07:22:36 Procedures None recorded. Surgeries None recorded. Imaging XR, femur, 2 or more view - 310 rt femur 2v global 2023 024 [email or web address] [address], [place], [address], 4 07:22:36 XR, femur, 2 or more view - 315 rt femur 2v new pt 2023 024 [facility], [address], [address], [place], [address], 4 16:27:27 Medication Orders None recorded. Patient TargetsNo targets recorded. Patient InstructionsNo instructions recorded. Reason for Referral Right distal lateral thigh w ound, wound VAC change every 48-72 hours, with black granular foam sponge, and -125 mmHg suction. Wound tunnels distally about 4 cm, and laterally i.e. deep she is about 3-1/2 cm. Referring Physician: Juanjose Dangelo, Orthopedic Surgery, [id number] Encounter Date: 04/07/2024 Results Created Date Observation Date Name Description Value Unit Range Abnormal Flag Note LastModifiedBy Organization Detail LastModifiedTime 04/07/2004/07/2024 XR, femur , 2 or more view http:/ [email or web address] ?Encry pted=s hAaTro YD8dLq bEUv6g %2BXZw aYqtaq 0bqfl% 2Fg9IQ a4ajBk vP9nXo QUaueC m3YtLR FvZlgJ JJ8mAn HZtai3 1i3950 AC0Kqa n6MU6S iKiQtr MwF INTERFACE [facility] [address], [place], [address], 04/07/2024 11:10:25 04/07/20 24 04/07/2024 XR, femur , 2 or more view http:/ [email or web address] ?Encry pted=s hAaTro YD8dLq bEUv6g %2BXZw aYqtaq 0bqfl% 2Fg9IQ a4ajBk vP9nXo QUaueC m3YtLR FvZlgJ JJ8mAn HZtai3 6p5990 AC0Kqa n6MU6S iKiQtr MwF INTERFACE [facility] [address], [place], [address], 04/07/2024 11:10:27 Result Notes Documentation Provider Name and Address Organization Details Recorded Time Xr, Femur, 2 Or More View : [email or web address]? Encrypted=pqOaLomNA0dVmeO Uv6g%0GQBanYsrco2kxuh%2Fg 1FMr9gtAijT8yQzAFeudJy8Qr PIDyQucIZK4yYkYHukf57n835 8YN6Fluo8FQ4TmLtPbdKsA Not Available [facility] 04/07/2024 11:10: 26 Xr, Femur, 2 Or More View : [email or web address]? Encrypted=bhPbFenZB4tFtsF Uv6g%6IHQpjChwcf8wfhs%2Fg 7QQw5erTohV4gNqSMdscBu0Fc IAQkOlzIDM3zYtPPyzg19i726 8NI9Vpnt4HG8LqRvZxlHaP Not Available [facility] 04/07/2024 11:10: 28 Problems Name Problem SNOMED Code Status Onset Date Resolution Date Notes Provider Name and Address Organization Details Recorded Time No complaints 157940407 Active Status : 'A'; Not Available [facility] 09:21:30 Chronic osteomyeli tis of femur 443472165 Active 2023 Katina Mills MD [address], [place], [address] , 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 4 11:52:00 Open wound of thigh 540238740 Active 2023 Katina Mills MD [address], [place], [address] , [facility] 4 16:45:16 Infection AND/OR inflammato ry reaction due to internal prosthetic device, implant AND/OR graft 23834779 Active 2023 Katina Mills MD [address], [place], [address] , [facility] 4 16:45:24 Thigh pain 69636476 Active 2023 JOHN COMFORTE null, [facility] 4 13:29:20 Thigh pain 20391170 Active 2023 JOHN COMFORTE null, [facility] 4 13:29:34 Pain of right thigh 3624351547200 07 Active 2023 JOHN COMFORTE null, [facility] 4 13:30:16 Problem Notes None recorded. Medical Equipment None Reported. Allergies Allergen ID Allergen Name Allergen Category Reaction Reaction Severity Criticality Documentation Date Start Date Code Code System Note Provider Name and Address Organization Details Recorded Time 42171 morphine sulfate medicatio n Not available Not available Not available 09/27/20232020 60132 RxNorm Not Available [facility] 4 12:45:16 Medications Name Sig Start [...] Updated DateTime 11/24/2023 156.21 cm 50.2 kg/m2 501859.94 g VIKTOR DIAZ [facility] 11/24/2023 09:55:18 Date Recorded Body height Body mass index (BMI) Body weight Provider Name and Address Organization Details Last Updated DateTime 02/22/2024 156.21 cm 50.2 kg/m2 930904.94 g VIKTOR DIAZ [facility] 02/22/2024 14:48:54 Date Recorded Body height Body mass index (BMI) Body weight Provider Name and Address Organization Details Last Updated DateTime 04/07/2024 156.21 cm 50.2 kg/m2 793826.94 g VIKTOR DIAZ [facility] 04/07/2024 10:56:59 Date Recorded Body height Body mass index (BMI) Body weight Provider Name and Address Organization Details Last Updated DateTime 06/01/2024 156.21 cm 50.2 kg/m2 648181.94 g VIKTOR DIAZ [facility] 06/01/2024 14:26:08 Social History None recorded. Functional Status None recorded. Mental Status None recorded. Family History Nothing Reported. Medical History Condition Response Allergies/Hayfever Y Coronary Artery Disease N Anxiety/Depression Y Breathing or lung disorders Y Emphysema N Nerve Disorders N Thyroid Problems N COPD Y Pacemaker N Anemia N Kidney/Bladder Problems N Vascular Disease N Heart Trouble Y Heart Attack (AR) N Gastrointestinal Disease Y Cholesterol N Diabetes [...] ICD10 Code Diagnosis IMO Codes Diagnosis Note [id number] MD Cristina Morton [address] [place] [address] 11/24/2023 09:44:05 11/24/2023 16:25:12 Fracture of femur 29716909 S72.91XD [id number] MD Cristina Morton [address] [place] [address] 02/22/2024 14:35:57 03/20/2024 05:41:20 Chronic osteomyelitis of femur 583915347 M86.659 Infection AND/OR inflammatory reaction due to internal prosthetic device, implant AND/OR graft 67933792 T82.7XXS Open wound of thigh 1256 78060 S71.101A Chronic os teomyelitis of femur with draining sinus 7204179726 39760 M86.858 [id number] MD Cristina Ambrose [address] [place] [address] 04/07/2024 10:50:34 04/20/2024 07:22:36 Closed fracture of shaft of femur 10423563 S72.301D Open wound of thigh 1256 77601 S71.101D [id number] MD Cristina Ambrose [address] [place] [address] 06/01/2024 14:12:22 06/20/2024 09:07:48 Chronic osteomyelitis of right femur 3417749505 219765 M86.651 48694521 Chronic os teomyelitis of femur with draining sinus 9342370645 56352 M86.041 8492258 Health Concerns Section Related Observation LastModified by Organization Detai ls LastModified Time None Recorded Concern Status LastModified by Organization Details LastModified Time None Recorded Advance Directives Directive None Recorded Payers Insurance Date Sequence Insurance Name Policy Number Policy Garcia Covered Member ID Garcia Member ID Guarantor Name 07/27/2024 1 [place] [employer] Latty Sample [id number] Latty Sample 07/27/2024 2 MEDICAID-[place]: [facility] Latty Sample [id number] Latty Sample OBGyn Episode No OBEpisode recorded.
--- OUTSIDE RECORDS SUMMARY | 2025-04-19 19:02 | XMS_ITS | Clinical Summary ---
Author Organization [facility] Facility Address [address] [address] Care Team Providers Care Manager Assisted Living Name Role Phone Unavailable Primary Care Provider [...]
== END ==
LOC: HO.CARD 14:44
PROVIDERS: PCP Internal Medicine; Visit Provider Nurse Practitioner Family
DX: I27.20 Pulmonary hypertension, unspecified (principal)
CPT/HCPCS: 93306

== ENCOUNTER → 2025-04-19 14:47 | Outpatient (BNV) | payer MEDICARE, MEDICAID, SELFPAY | PROVIDERS: PCP Internal Medicine; Visit Provider Internal Medicine Cardiovascular Disease | DX: I27.20 Pulmonary hypertension, unspecified (principal); I51.7 Cardiomegaly; I35.0 Nonrheumatic aortic (valve) stenosis | CPT/HCPCS: 93306 ==

== ENCOUNTER 2025-05-18 11:21 | Outpatient (AMB) | payer MEDICARE, MEDICAID, SELFPAY ==
[2025-05-18 11:31] VITALS: BP 142/68; PULSE 57; O2SAT 96; BMI 48.6
--- NOTE | 2025-05-18 11:31 | MHC.OFFVIS ---
Vital Signs 05/18/25 11:31 Height 5 ft 1 in Weight 257 lb 4 oz BMI 48.6 BP 142/68 H Blood Pressure Location Rt brachial Position Sitting Pulse 57 Pulse Source Pulse Oximeter Pulse Oximetry (%) 96 Oxygen Delivery Method Nasal Cannula Oxygen Flow Rate 2 Intake Visit Reasons: COPD Allergies gabapentin Allergy (Mild, Verified 05/18/25 11:36) Anxiety morphine (MORPHINE) Allergy (Unknown, Verified 05/18/25 11:36) ANAPHALAXIS, anaphylaxis propofol (From Diprivan) Allergy (Verified 05/18/25 11:36) Anaphylaxis HPI HPI COPD: Details: Brianne is a pleasant 65-year-old female, former 70 pack year smoker, quit 5 years ago with underlying COPD on 2-3 L of supplemental oxygen, ALEKSEY/ohs with chronic CO2 retention and suboptimal compliance with BiPAP, CHF, HFpEF + R-sided HF/pulmonary HTN, obesity, and chronic osteomyelitis.? She has had multiple admissions for acute hypoxic/hypercarbic respiratory failure secondary to COPD and CHF, last admitted November 2024. PFT 02/2025 demonstrated severe COPD and severely decreased DLCO. Over the last few months patient has been working towards weight loss with diet changes and has lost a total of 30 lbs which has improved overall activity level and decreased oxygen demand. She has also been able to perform ADLs without the assistance of her INSTITUTIONAL AIDE. She was previously using 4L with exertion and 2-3L at rest to maintain oxygen saturation >90%, now has decreased to 2-3L with exertion and 1.5 L at rest. She is motivated to continue to work towards weight loss. She has been using Trelegy 100 mcg, Theophylline and reports using albuterol infrequently. At this time she feels her respiratory symptoms are well controlled on current regimen. The patient also has a history of pulmonary hypertension, with previous imaging showing ground glass opacities and some fluid accumulation. She underwent echo which continues to reveal moderate pulmonary hypertension. She is not under the care of cardiology currently, and is supposed to be taking 80 mg lasix daily however feels she does not require a daily dose. The patient has been experiencing sleep apnea, for which she uses a non-invasive ventilator at [facility] for chronic hypercapnia. She reports compliance with use however this is not reflected in compliance report. DME is [employer]. She denies any visits to urgent care or hospitalizations related to respiratory distress since the last visit. [facility] Medical History (Updated 05/22/25 @ 08:25 by Crissy Peck NP) COPD (chronic obstructive pulmonary disease) Chronic hypoxic respiratory failure Pulmonary hypertension Hypoventilation associated with obesity Pickwickian syndrome DM type 2 (diabetes mellitus, type 2) Shortness of breath Influenza A Sepsis Acute on chronic heart failure with preserved ejection fraction (HFpEF) Acute exacerbation of chronic obstructive pulmonary disease BMI 50.0-59.9, adult VERN (acute kidney injury) Enterococcus faecalis infection MSSA (methicillin susceptible Staphylococcus aureus) MRSA (methicillin resistant staph aureus) culture positive Encounter for management of wound VAC Chronic osteomyelitis Hypertension Iron deficiency anemia COPD (chronic obstructive pulmonary disease) Femur fracture Crohn's colitis Morbid obesity due to excess calories Closed tibia fracture Acute on chronic respiratory failure with hypoxia and hypercapnia Nonrheumatic mitral (valve) stenosis Paroxysmal atrial fibrillation Dyspnea Chronic hypercapnic respiratory failure Opioid use disorder Surgical History Status post incision and drainage Hx of cholecystectomy History of open reduction and internal fixation (ORIF) procedure Status post open reduction and internal fixation (ORIF) of fracture Recent surgical procedure on lower extremity Family History Other Adopted Social History Household Members: Spouse and Children Household Members Other:: , Hoa. Daughter Carolyn, 21. Daughter's Boyfriend, 22. Neice, 21 Housing: House Do you presently have visiting nurse or other home services: Yes Alcohol intake: never Comment: COUNTS CORRECT Patient Tobacco Use Status: Former Tobacco user Years Smoked: 25 e-Cigarette/Vaping Use: Never Used Second Hand Smoke Exposure: No Advance Directives Date on File: 12/16/20 service: No Current occupational status: disabled Cognitive needs: No Hearing needs: No Vision needs: Yes Review of Systems Const Denies chills, Denies excessive sweating, Denies fever(s), Denies headache(s) and Denies night sweats Eyes Denies dry eyes, Denies irritation and Denies itchy eyes ENT Reports Normal hearing present, Denies headache(s), Denies nasal congestion, Denies nasal discharge, Denies post nasal drip and Denies sore throat Card Denies chest pain, Denies chest pain at rest, Denies chest pain with activity, Denies claudication, Reports dyspnea on exertion and Denies paroxysmal nocturnal dyspnea Resp Denies chest congestion, Denies cough, Denies excessive phlegm production, Denies pain on inspiration, Denies pain with cough, Reports dyspnea on exertion, Denies stridor and Denies wheezing Musc Denies myalgias Neuro Reports Normal hearing present and Denies headache(s) Endo Denies excessive sweating Enrique/Lymph Denies lymphadenopathy Aller/Immun Denies itchy eyes, Denies seasonal rhinorrhea and Denies wheezing Physical Exam Vital Signs: Last Vital Signs Pulse 57 05/18/25 11:31 BP 142/68 H 05/18/25 11:31 Pulse Ox 96 05/18/25 11:31 Oxygen Delivery Method Nasal Cannula 05/18/25 11:31 Oxygen Flow Rate 2 05/18/25 11:31 BMI result Body Mass Index 48.6 Const General: cooperative, comfortable, no acute distress, well developed and alert Nutritional Appearance: obese Orientation/consciousness: patient oriented x3 Limitations: wheelchair (motorized scooter) HEENT Head: Yes normal to inspection, Yes normocephalic and Yes atraumatic Ears: hearing grossly normal bilaterally and external ears normal Eyes General: appearance normal, both eyes and all related structures Eyelids: Yes eyelids normal Sclerae: sclerae normal EOM: EOMs intact bilaterally Neck Neck: Yes normal visual inspection and Yes no lymphadenopathy Lymphatic: no lymphadenopathy noted Chest Chest palpation & inspection: normal inspection of the chest Resp Other: bibasilar inspiratory crackles Effort & Inspection: normal respiratory effort, able to speak in complete sentences, no audible wheezes, no cough, no stridor, not tachypneic, no tripod positioning and no use of accessory muscles Auscultation: diminished lung sounds Cardio Jugular venous distension: no JVD Rate: regular rate Rhythm: regular rhythm Skin Other: warm, dry General skin exam: no rashes or lesions noted Neuro General: patient oriented x3 Cranial nerves: Yes Normal hearing present Cognition (Neuro): normal cognition Gait exam (Neuro): Assisted gait required Extrem Other: 1-2+ pedal edema Psych Appearance: grossly normal and well kempt Speech and movement: Normal speech and movement present and Clear speech present Affect: normal affect Attitude: cooperative Thought process: Normal thought process present Thought content: Normal thought content present Insight: Good insight present (Psych) Judgement: Good judgement present (Psych) Assessment & Plan Assessment & Plan (1) Hypoventilation associated with obesity: Code(s): E66.2 - Morbid (severe) obesity with alveolar hypoventilation Category: Medical Qualifiers: Obesity classification: adult class 3 (BMI >= 40) Serious obesity comorbidity presence: with serious comorbidity Body mass index: BMI 45.0-49.9 Qualified Code(s): E66.2 - Morbid (severe) obesity with alveolar hypoventilation; Z68.42 - Body mass index [BMI] 45.0-49.9, adult (2) Chronic hypoxic respiratory failure: Comment: Secondary to morbid obesity, hypoventilation, COPD, echo 04/2024 nl EF, severe pulmonary hypertension Code(s): J96.11 - Chronic respiratory failure with hypoxia Category: Medical (3) COPD (chronic obstructive pulmonary disease): Code(s): J44.9 - Chronic obstructive pulmonary disease, unspecified Category: Medical Qualifiers: COPD type: COPD with acute exacerbation Qualified Code(s): J44.1 - Chronic obstructive pulmonary disease with (acute) exacerbation (4) Pulmonary hypertension: Code(s): I27.20 - Pulmonary hypertension, unspecified Category: Medical (5) Nocturnal hypoxemia: Code(s): G47.34 - Idiopathic sleep related nonobstructive alveolar hypoventilation Category: Medical Plan At this time she feels symptoms are relatively controlled on current regimen of Trelegy, theophylline and albuterol MDI, advised to continue. She is currently using 1.5 L of supplemental oxygen with rest and 2-3 L with exertion to maintain an oxygen saturation of 90-92% with good effect. Will send for overnight oximetry to ensure resolution of nocturnal hypoxemia. Discussed importance of continuing with NIV for chronic hypercapnia as use is not reflected in compliance report. Will reach out to V[facility] to obtain further information. On exam patient with inspiratory bibasilar crackles and patient admits to using lasix once weekly, encouraged patient to adhere to medication regimen as prescribed. Discussed cardiology referral however patient reluctant to proceed at this time. She is aware if symptoms worsen to seek emergent care. Applauded patient on weight loss and discussed importance of further decreasing overall weight to improve respiratory status which she is motivated to do. She has upcoming chest CT next month to assess for resolution of ggo previously noted on CT chest 09/2024. All questions were answered and patient is in agreement of plan. Will follow-up to review results or sooner if needed. Orders: Orders Overnight Pulse Oximetry Today G47.34 - Idiopathic sleep related nonobstructive alveolar hypoventilation Coding Level of Care Code Est Pt Level 4 (30669) Complex EM visit Add On G2211 Diagnoses Class 3 obesity with alveolar hypoventilation, serious comorbidity, and body mass index (BMI) of 45.0 to 49.9 in adult E66.2; Z68.42 Obesity classification: adult class 3 (BMI >= 40) Serious obesity comorbidity presence: with serious comorbidity Body mass index: BMI 45.0-49.9 Chronic hypoxic respiratory failure J96.11 COPD (chronic obstructive pulmonary disease) J44.1 COPD type: COPD with acute exacerbation Pulmonary hypertension I27.20 Nocturnal hypoxemia G47.34
--- OUTSIDE RECORDS SUMMARY | 2025-05-18 13:46 | XMS_ITS | Clinical Summary ---
Author Organization [facility] Address [address] [place] [address] Care Team Providers Care Weaving Inspector Name Role Phone Evin Fan MD Primary Care Provider [phone] Allergies Active Allergy Reactions Criticality Noted Date [...] 50+ (1 of 1 - PCV) 2011 RSV Vaccine 50 years and old er and Patients (1 - Risk 50-74 years 1-dose series) 2011 Zoster (Shingles) Vaccine (1 of 2) 2011 Influenza Vaccine 02/23/2025 COVID-19 Vaccine (1 - 2023-2 5 season) 2025 Hepatitis B Vaccines Aged Out No long er eligible based on patient's age to complete this topic Insurance MEDICARE PART A & B [facility] Care Teams Weaving Inspector Relationship Specialty Start Date End Date Evin Fan MD [address] [place] [address] [place] [address] PCP - General Family Medicine 01/20/21
--- OUTSIDE RECORDS SUMMARY | 2025-05-18 13:46 | XMS_ITS | Clinical Summary ---
Author Organization [facility] Facility Address [address] [address] Care Team Providers Care Storehouse Clerk Name Role Phone Unavailable Primary Care Provider [...]
== END 2025-05-18 12:11 | disposition home or self-care (01) ==
LOC: HO.HPSW 11:22
PROVIDERS: PCP Internal Medicine; Visit Provider Nurse Practitioner Family
DX: E66.2 Morbid (severe) obesity with alveolar hypoventilation (principal); Z68.42 Body mass index [BMI] 45.0-49.9, adult; J96.11 Chronic respiratory failure with hypoxia; J44.1 Chronic obstructive pulmonary disease with (acute) exacerbation; I27.20 Pulmonary hypertension, unspecified; G47.34 Idiopathic sleep related nonobstructive alveolar hypoventilation
CPT/HCPCS: 99214; G2211

== ENCOUNTER → 2025-05-18 11:21 | Outpatient (BNVA) | payer MEDICARE, MEDICAID, SELFPAY | PROVIDERS: PCP Internal Medicine; Visit Provider Nurse Practitioner Family | DX: E66.2 Morbid (severe) obesity with alveolar hypoventilation (principal); Z68.42 Body mass index [BMI] 45.0-49.9, adult; J96.11 Chronic respiratory failure with hypoxia; J44.1 Chronic obstructive pulmonary disease with (acute) exacerbation; Z87.891 Personal history of nicotine dependence; I27.20 Pulmonary hypertension, unspecified; Z99.81 Dependence on supplemental oxygen | CPT/HCPCS: 99212 ==

== ENCOUNTER 2025-05-26 07:35 | Outpatient (REF) | payer MEDICARE, MEDICAID, SELFPAY ==
--- NOTE | ~2025-05-26 | CT_ITS ---
CLINICAL HISTORY: R91.8 - Other nonspecific abnormal finding of lung field CT chest without contrast Comparison: CT/REG/OT/NE/SR - CT CHEST W IV CON - 10/14/24 10:37 EDT Findings: Calcified coronary atherosclerotic disease. Moderate mineralization of the mitral valve. The visualized thyroid and mediastinum are unremarkable. Minimal ground-glass pattern in the left and right lung. Right middle lobe anterior bulla, 3.5 cm, stable. Moderate calcified atherosclerotic disease of the abdominal aorta. Partly visualized bilateral perinephric stranding. The bones are intact. Kyphotic curvature of the thoracic spine. Diffuse idiopathic skeletal hyperostosis. Fusp-qi-uphsskyj osteopenia. IMPRESSION: 1. Re-identified minimal ground-glass opacities in bilateral lungs, nonspecific finding (pulmonary viral infection versus interstitial lung disease). 2. Right middle lobe anterior bulla, measuring 3.5 cm, stable. 3. Calcified coronary and abdominal aortic atherosclerotic disease. 4. Moderate mitral valve mineralization. 5. Partly visualized bilateral perinephric stranding, chronic. 6. No acute intrathoracic findings. This document has been electronically signed by: Govind English MD on 05/28/2025 17:38:30
--- OUTSIDE RECORDS SUMMARY | 2025-05-26 07:38 | XMS_ITS | Clinical Summary ---
Author Organization [facility] Facility Address [address] [address] Care Team Providers Care Fire Loss Prevention Engineer Name Role Phone Unavailable Primary Care Provider [...]
--- OUTSIDE RECORDS SUMMARY | 2025-05-26 07:38 | XMS_ITS | Data Portability ---
Author Organization [facility], Main Office Address [address] [place] [address] Care Team Providers Care Dry House Tender Name Role Phone DAY BROOK () OTHER Assessment Encounter Date Assessment Date Assessment LastModified by Organization Details LastModified Time 03/30/2019 03/30/2019 03/28/19 Na 143, K 4.9, BUN 21, Manufacturing Intern 0.75-in hospital [email or web address] Not available 03/30/2019 11:50:52 04/03/2019 04/03/2019 03/31/19 WBC 16.2, Hgb 11.3, Hct 37.9, Plt 190, Na 144, K 3.7, BUN 23, Manufacturing Intern 0.69, C02 42 [email or web address] Not available 04/03/2019 [...] By Organization Details Last Modified Time 03/31/2019 [id number] wound care team to evaluate leg wound myoss Not available 03/31/2019 12:48:10 Reason for Referral None Reported. Problems Name Problem SNOMED Code Status Onset Date Resolution Date Notes Provider Name and Address Organization Details Recorded Time Nytqm-ep-ssa onic respiratory failure 06537585 Active 2018 bipap setting 16/7.9 and 5 liters of oxygen ANDREI HUTCHINSON [address], [address], [place], [address], [facility] 9 11:54:07 Chronic obstructive pulmonary disease 87383803 Active 2018 NUBIA DALTONAMYP [address], [address], [place], [address], [email or web address] 9 11:43:00 Smoker 45271812 Active 2018 NUBIA MICHAELROSIEAMY GONSALVESP [address], [address], [place], [address], [facility] 9 11:43:06 Bacteremia 4572333 Active 2018 NUBIA DALTONAMYP [address], [address], [place], [address], [email or web address] 9 11:45:37 Crohn's disease 30993815 Active 2018 NUBIA DALTON ANDREI [address], [address], [place], [address], [facility] 9 11:46:44 Chronic hepatitis C 913348990 Active 2018 NUBIAANDREI BALLARD [address] , [address], [place], [address], [facility] 9 11:47:00 Asthma 248792018 Active 2018 NUBIASA HOFFMAN ANDREI [address], [place], [address], [facility] 9 11:47:20 Chronic pain 25077806 Active 2018 ANDREI HUTCHINSON [address] , [address], [place], [address], [email or web address] 9 11:47:51 Venous stasis 45255849 Active 2018 NUBIA HOFFMAN [employer] [address], [address], [place], [address], [facility] 9 11:48:13 Anxiety 74050890 Active 2018 NUBIA HOFFMAN [employer] [address], [address], [place], [address], [place] [facility] 9 11:54:52 Essential hypertension 02727331 Active 2018 AMY HUTCHINSONP [address], [address], [place], [address], [facility] 9 12:12:54 Insomnia 085851501 Active 2018 ANDREI HUTCHINSON [address], [address], [place], [address], [facility] 9 12:13:59 Problem Notes None recorded. Medical Equipment None Reported. Allergies Allergen ID Allergen Name Allergen Category Reaction Reaction Severity Criticality Documentation Date Start Date Code Code System Note Provider Name and Address Organization Details Recorded Time 94415 morphine medicatio n Not available Not available Not available 03/30/2019 7052 RxNorm ANDREI HUTCHINSON [address], [address], [place], [address], [facility] 9 11:41:19 Medications Not known to be on any medication Vitals Date Recorded Body temperature Heart rate Respiratory rate Oxygen saturation Oxygen saturation in Arterial blood by Pulse oximetry Inhaled oxygen flow rate Systolic And Diastolic Provider Name and Address Organization Details Last Updated DateTime 9 97.8 [degF] 95 /min 20 /min 96 % 96 % 3 L/min 141/65 mm[Hg] NUBIA HOFFMAN [employer] [address], [address], [place], [address], [facility] 9 11:39:45 Date Recorded Heart rate Respiratory rate Oxygen saturation Oxygen saturation in Arterial blood by Pulse oximetry Inhaled oxygen flow rate Systolic And Diastolic Provider Name and Address Organization Details Last Updated DateTime 9 74 /min 20 /min 93 % 93 % 3 L/min 115/71 mm[Hg] Milli Milton MD [address], [address], [place], [address], [place] [facility] 9 11:57:31 Date Recorded Body temperature Heart rate Respiratory rate Oxygen saturation Oxygen saturation in Arterial blood by Pulse oximetry Inhaled oxygen flow rate Systolic And Diastolic Provider Name and Address Organization Details Last Updated DateTime 9 98.1 [degF] 68 /min 20 /min 96 % 96 % 3 L/min 115/59 mm[Hg] ANDREI HUTCHINSON [address], [address], [place], [address] [facility] 9 12:31:37 Social History Question Answer Notes LastModified by Organizat ion Details LastModified Time Tobacco Smoking Status Current Every Day Smoker Not Available [employer] 05/21/2020 03:13:22 Do You Have An Advance Directive? No [id number] Information not available 05/21/2020 How Much Tobacco Do You Chew? None [id number] Information not available 05/21/2020 Do You Have A Medical Power Of Cnc Laser Operator? No [id number] Information not available 05/21/2020 What Was The Date Of Your Most Recent Tobacco Screening? 03/30/2019 [id number] Information not available 05/21/2020 How Much Tobacco Do You Smoke? 1 PPD [id number] Information not available 05/21/2020 On What Date Was Tobacco Cessation Counseling Provided? 03/30/2019 Nicotine Patch On [id number] Information not available 05/21/2020 How Many Years Have You Smoked Tobacco? 20 [id number] Information not available 05/21/2020 Sex: Unknown Functional Status Question Answer Note LastModified by Organizat ion Details LastModified Time What is your level of alcohol consumption? None [id number] Information not available 05/21/2020 Do you or have you ever used smokeless tobacco? Never used smokeless tobacco [id number] Information not available 05/21/2020 Do you or have you ever used e-cigarettes or vape? Never used electronic cigarettes [id number] Information not available 05/21/2020 Mental Status None recorded. Family History Nothing Reported. Medical History No medical history recorded. Gynecological HistoryNo gynecological history recorded. Obstetrics History GPAL:G 0 P 0 0 0 0 Past Encounters Encounter ID Performer Location Encounter Start Date Encounter Closed Date Diagnosis/Indication Diagnosis SNOMED-CT Code Diagnosis ICD10 Code Diagnosis IMO Codes Diagnosis Note [id number] ANDREI HUTCHINSON [address] [place] [address] [place] [address] 03/30/2019 11:27:04 04/18/2019 13:50:48 Tsurg-yx-wbmlopq respiratory failure 02776253 J96.22 uses bipap 16/7.9 with 5 liters of oxygenpred nisone taper q 3 daystheoph ylline anhydrous er 400 mg qdanoro ellipta 62.5-25 mcg qdbaseline o2 3 litersmoni tor respirator y status Bacteremia 7097737 R78.8 1 ceftriaxon e 2 gms iv qd til 04/17/19wil l add probioticP icc line management follow with id Chronic ob structive pulmonary disease 79475678 J41.8 see above Smoker 48251344 F17.210 nicotine patch 21 mg qdmonitor Chronic pain 45513959 G8 9.29 suboxone 8/2 tidmonitor pain Venous stasis 26114793 I 87.8 2 wounds on left legwill have wound see heremonito r Asthma 450988221 J45.99 8 see above Chronic hepatitis C 1283 23956 B18.2 in historymon itor Crohn's disease 41935984 K50.80 in historymon itor Anxiety 68311365 F41.1 clonazepam 0.5 mg qddiscusse d risk vs benefit of clonazepam with ptmonitor anxiety Essential hypertension 13663118 I10 lisinopril 20 mg qdmonitor b/p and labs Insomnia 125231883 G47.0 9 temazepam 30 mg q hsdiscusse d risk vs benefit of temazepam with pt monitor sleep [id number] Milli Milton MD [address] [address] 03/31/2019 11:56:49 04/18/2019 13:53:53 Chronic obstructive pulmonary disease 66332332 J41.1 s/p recent exacerbati on with acute on chronic respirator y failureAno ro Ellipta 62.5-25 one puff dailyoxyge n at 3lpredniso ne 40 mg dailytheop hylline ER 400 mg dailywill monitor Chronic pain 77256478 G8 9.29 buprenorpi ne-naloxon e 8-2 - one film SL tidwill monitor Anxiety 24882430 F41.1 clonazepam 0.5 mg dailywill monitor Essential hypertension 44565464 I10 lisinopril 20 mg dailywill continue to monitor Smoker 50487095 F17.200 nicoderm 21 patch dailyencou rage smoking cessation Bacteremia 2776991 R78.8 1 IV ceftriaxon e 2 gm daily until 04/16/19wil l monitor Insomnia 818745861 G47.0 9 temazepam 30 mg at hs - will decrease to 15 mg at hswill monitor [id number] ANDREI HUTCHINSON [address] [address] [place] [address] 04/03/2019 12:19:28 04/18/2019 13:52:43 Bacteremia 5001305 R78.81 ceftriaxon e 2 gms iv qd til 04/17/19pro bioticPicc line management follow with id Acute-on-c hronic respiratory failure 92038005 J96.22 uses bipap 167.9 with 5 liters of oxygenpred nisone taper q 3 daystheoph ylline anhydrous er 400 mg qdanoro ellipta 62.5-25 mcg qdbaseline o2 3 litersfoll ow up with pulmonolog y Chronic ob structive pulmonary disease 04098694 J41.8 see above Asthma 959155694 J45.99 8 see above Smoker 54341927 F17.210 nicotine patch 21 mg qdfollow up with PCP Chronic pain 35924969 G8 9.29 suboxone 8/2 tidfollow up with PCP Venous stasis 15979617 I 87.8 2 wounds on left legfollow with PCP Chronic hepatitis C 1283 97501 B18.2 in historyfol low up with PCP Crohn's disease 32097344 K50.80 in historyfol low up with PCP Anxiety 77024631 F41.1 clonazepam 0.5 mg qdfollow up with PCP Essential hypertension 62625149 I10 lisinopril 20 mg qdfollow up with PCP Insomnia 153012660 G47.0 9 temazepam 15 mg q hsfollow up with PCP Health Concerns Section Related Observation LastModified by Organization Detai ls LastModified Time None Recorded Concern Status LastModified by Organization Details LastModified Time None Recorded Advance Directives Directive N: Payers Insurance Date Sequence Insurance Name Policy Number Policy Garcia Covered Member ID Garcia Member ID Guarantor Name 04/18/2019 1 [place] [employer] [place] Sample [id number] [place] Sample 04/18/2019 2 [place] [facility] Sample [id number] Brianne Sample Notes Date Note Type Note Provider Name and Address Organization Details Recorded Time 03/30/2019 text/html A 59 year old female being seen for a initial intake note. Patient presented to [facility] er with sob and cough. She received [...] and hepatitis c. NUBIA HOFFMAN, ANDREI [address], [address], [place], [address], [facility] [email or web address] [facility] 03/30/2019 19:27:36 03/31/2019 text/html ROS as noted in the HPI This 59 year old female was admitted to [facility] on 03/29/19 for continued care and rehab after [facility] for acute on chronic respiratory failure. Patient presented to [facility] ER with sob and cough as well as weakness and confusion. She had recently been injured by oxygen tank falling on left leg before long drive. Leg became swollen and infected. Patient stopped at Urgent Care and then ER on her travels. She received Rx for oral doxycycline. At [facility], she received solu-medrol, IV furosemide and updrafts [...] full code assumed Milli Milton MD [address], [address], [place], [address], [facility] 03/31/2019 12:49:04 04/03/2019 text/html A 59 year old female being seen for a discharge summary. Patient presented to [facility] er with sob and cough. She received [...] failure and hepatitis c. ANDREI HUTCHINSON [address], [address], [place], [address], [employer] 04/03/2019 14:05:15 OBGyn Episode No OBEpisode recorded.
--- OUTSIDE RECORDS SUMMARY | 2025-05-26 07:38 | XMS_ITS | Data Portability ---
Author Organization [facility], [facility] Address [address] [place] [address] Care Team Providers Care Cap Cutter Name Role Phone [employer] [facility] Primary Care Pro vider Assessment Encounter Date [...] a nonoperative mind set; recheck as needed Not available 11/24/2023 10:54:02 02/22/2024 02/22/2024 CC [...] be taken - expectations would be possible care home wound closure, ongoing ABX would be necessary and there would be no intent to cure the infection after fracture fixation. 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 Results Procedure: Wound Vacuum Dressing Change Description: [...] dressing regularly with wound care nurse from [facility]. -Check wound in 6-8 weeks or sooner [...] care clinic for additional input if needed. [email or web address] Not available 04/17/2024 21:48:46 06/01/2024 06/01/2024 History [...] weeks or sooner if any flare-ups occur. [email or web address] Not available 06/07/2024 22:37:13 Plan of Treatment [...] rt femur 2v global 2023 024 [email or web address], [address], [place], [address], 4 07:22:36 XR, femur, 2 or more view - 315 rt femur 2v new pt 2023 024 [email or web address] [facility], [address], [place], [address], 4 16:27:27 Medication Orders None recorded. Patient TargetsNo targets recorded. Patient InstructionsNo instructions recorded. Reason for Referral Right distal lateral thigh w ound, wound VAC change every 48-72 hours, with black granular foam sponge, and -125 mmHg suction. Wound tunnels distally about 4 cm, and laterally i.e. deep she is about 3-1/2 cm. Referring Physician: Juanjose Dangelo, Orthopedic Surgery, [id number] Encounter Date: 04/07/2024 Results Created Date Observation Date Name Description Value Unit Range Abnormal Flag Note LastModifiedBy Organization Detail LastModifiedTime 04/07/2004/07/2024 XR, femur , 2 or more view http:/ [email or web address] ?Encry pted=s hAaTro YD8dLq bEUv6g %2BXZw aYqtaq 0bqfl% 2Fg9IQ a4ajBk vP9nXo QUaueC m3YtLR FvZlgJ JJ8mAn HZtai3 4c7613 AC0Kqa n6MU6S iKiQtr MwF INTERFACE [facility] [address], [place], [address], 04/07/2024 11:10:25 04/07/20 24 04/07/2024 XR, femur , 2 or more view http:/ [email or web address] ?Encry pted=s hAaTro YD8dLq bEUv6g %2BXZw aYqtaq 0bqfl% 2Fg9IQ a4ajBk vP9nXo QUaueC m3YtLR FvZlgJ JJ8mAn HZtai3 0n8360 AC0Kqa n6MU6S iKiQtr MwF INTERFACE [facility] [address], [place], [address], 04/07/2024 11:10:27 Result Notes Documentation Provider Name and Address Organization Details Recorded Time Xr, Femur, 2 Or More View : [email or web address] Encrypted=orNbLigFC4vUwuZ Uv6g%2BSFjcFftdm4gfla%2Fg 0SIl2kpPciG5tXjQMeybJm9Mp MMAxBzeFGJ9xMvYZgxa25t905 9EA5Mbap9YR1JdSlAdnGfM Not Available [facility] 04/07/2024 11:10: 26 Xr, Femur, 2 Or More View : [email or web address]? Encrypted=xiIzZgvPM1yTjaC Uv6g%8AOOzhTqzqg8rocd%2Fg 5WGm2pxYxmJ0aOiQIyvkIa3Ja QBIpLudQIY8lOqWGbhe72o007 8XI2Piea5GN4ZxRdOfkMvP Not Available [facility] 04/07/2024 11:10: 28 Problems Name Problem SNOMED Code Status Onset Date Resolution Date Notes Provider Name and Address Organization Details Recorded Time No complaints 358719252 Active Status : 'A'; Not Available [facility] 09:21:30 Chronic osteomyeli tis of femur 316882614 Active 2023 Katina Mills MD [address] [facility] [address], [place], [address] , 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 3496249957108 03 Active 2023 Katina Mills MD [address], [place], [address] , [facility] 4 11:52:00 Open wound of thigh 575904008 Active 2023 Katina Mills MD [address], [place], [address] , [facility] 4 16:45:16 Infection AND/OR inflammato ry reaction due to internal prosthetic device, implant AND/OR graft 04008985 Active 2023 Katina Mills MD [address] [facility] [address], [place], [address] , [facility] 4 16:45:24 Thigh pain 34846255 Active 2023 JOHN COMFORTE null, [facility] 4 13:29:20 Thigh pain 33766354 Active 2023 JOHN COMFORTE null, [facility] 4 13:29:34 Pain of right thigh 7450809542672 07 Active 2023 JOHN COMFORTE null, [facility] 4 13:30:16 Problem Notes None recorded. Medical Equipment None Reported. Allergies Allergen ID Allergen Name Allergen Category Reaction Reaction Severity Criticality Documentation Date Start Date Code Code System Note Provider Name and Address Organization Details Recorded Time 54338 morphine sulfate medicatio n Not available Not available Not available 09/27/20232020 12232 RxNorm Not Available [facility] 4 12:45:16 Medications Name Sig Start [...] Updated DateTime 11/24/2023 156.21 cm 50.2 kg/m2 171500.94 g VIKTOR DIAZ [facility] 11/24/2023 09:55:18 Date Recorded Body height Body mass index (BMI) Body weight Provider Name and Address Organization Details Last Updated DateTime 02/22/2024 156.21 cm 50.2 kg/m2 670840.94 g VIKTOR DIAZ [facility] 02/22/2024 14:48:54 Date Recorded Body height Body mass index (BMI) Body weight Provider Name and Address Organization Details Last Updated DateTime 04/07/2024 156.21 cm 50.2 kg/m2 872747.94 g VIKTOR DIAZ [facility] 04/07/2024 10:56:59 Date Recorded Body height Body mass index (BMI) Body weight Provider Name and Address Organization Details Last Updated DateTime 06/01/2024 156.21 cm 50.2 kg/m2 585904.94 g VIKTOR DIAZ [facility] 06/01/2024 14:26:08 Social History None recorded. Functional Status None recorded. Mental Status None recorded. Family History Nothing Reported. Medical History Condition Response Allergies/Hayfever Y Coronary Artery Disease N Breathing or lung disorders Y Anxiety/Depression Y Emphysema N Nerve Disorders N Thyroid Problems N COPD Y Pacemaker N Kidney/Bladder Problems N Anemia N Vascular Disease N Heart Trouble Y Heart Attack (DC) N Gastrointestinal Disease Y Cholesterol N Diabetes [...] ICD10 Code Diagnosis IMO Codes Diagnosis Note [id number] MD Cristina Morton [address] [place] [address] 11/24/2023 09:44:05 11/24/2023 16:25:12 Fracture of femur 48051303 S72.91XD [id number] MD Cristina Morton [address] [place] [address] 02/22/2024 14:35:57 03/20/2024 05:41:20 Chronic osteomyelitis of femur 650121761 M86.659 Infection AND/OR inflammatory reaction due to internal prosthetic device, implant AND/OR graft 07000077 T82.7XXS Open wound of thigh 1256 72281 S71.101A Chronic os teomyelitis of femur with draining sinus 6850138358 09667 M86.569 [id number] MD Cristina Ambrose [address] [place] [address] 04/07/2024 10:50:34 04/20/2024 07:22:36 Closed fracture of shaft of femur 23142606 S72.301D Open wound of thigh 1256 44283 S71.101D [id number] MD Cristina Ambrose [address] [place] [address] 06/01/2024 14:12:22 06/20/2024 09:07:48 Chronic osteomyelitis of right femur 9506502945 498129 M86.651 74996815 Chronic os teomyelitis of femur with draining sinus 3083958036 10620 M86.125 [id number] Health Concerns Section Related Observation LastModified by Organization Detai ls LastModified Time None Recorded Concern Status LastModified by Organization Details LastModified Time None Recorded Advance Directives Directive None Recorded Payers Insurance Date Sequence Insurance Name Policy Number Policy Garcia Covered Member ID Garcia Member ID Guarantor Name 07/27/2024 1 [place] [employer] [facility] [id number] [facility] 07/27/2024 2 [place] [facility] [facility] [id number] [facility] OBGyn Episode No OBEpisode recorded.
--- OUTSIDE RECORDS SUMMARY | 2025-05-26 07:38 | XMS_ITS | Clinical Summary ---
Author Organization [facility]ly [facility] Address [address] [place] [address] Care Team Providers Care Steam Engineer Name Role Phone Evin Fan MD Primary Care Provider [phone] Allergies Active Allergy Reactions Criticality Noted Date [...] topic Insurance MEDICARE PART A & B [facility] Care Teams Steam Engineer Relationship Specialty Start Date End Date Evin Fan MD [address] [place] [address] [place] [address] PCP - General Family Medicine 01/20/21
== END 2025-05-26 07:36 | disposition home or self-care (01) ==
LOC: HO.CT 07:35
PROVIDERS: PCP Internal Medicine; Visit Provider Nurse Practitioner Family
DX: R91.8 Other nonspecific abnormal finding of lung field (principal)
CPT/HCPCS: 71250

== ENCOUNTER → 2025-05-26 07:38 | Outpatient (BNV) | payer MEDICARE, MEDICAID, SELFPAY | PROVIDERS: PCP Internal Medicine; Visit Provider Radiology Diagnostic Radiology | DX: R91.8 Other nonspecific abnormal finding of lung field (principal); I34.1 Nonrheumatic mitral (valve) prolapse | CPT/HCPCS: 71250 ==